=== PATIENT | female | born 1940 | race Caucasian/White ===

== ENCOUNTER 2023-09-23 13:34 | Emergency (ER) | payer MEDICARE, SELFPAY ==
[2023-09-23 13:35] VITALS: BP 152/114; PULSE 89; RESP 16; TEMP 36.4; O2SAT 97; BMI 28.3
--- NOTE | 2023-09-23 14:02 | EKG12_ITS ---
Test Reason : CP Blood Pressure : / mmHG Vent. Rate : 084 BPM Atrial Rate : 000 BPM P-R Int : 000 ms QRS Dur : 088 ms QT Int : 360 ms P-R-T Axes : 000 -55 -07 degrees QTc Int : 425 ms Atrial fibrillation LAFB Septal infarct , age undetermined Abnormal ECG Confirmed by Roly Herrera ([id number]), editorial writer CH[place] ADAMES ([id number]) on 09/26/2023 8:03:42 AM Referred By: KRISTOFER Confirmed By:Roly Herrera
--- NOTE | 2023-09-23 14:02 | RAD_ITS ---
STUDY: X-RAY CHEST REASON FOR EXAM: Female, 82 years old. chest pain TECHNIQUE: Single AP portable view of the chest. COMPARISON: None. FINDINGS: EKG leads overlie the chest Lungs are expanded. Right lung is clear, there is a 1.7 cm nodule in the left upper lobe. Without previous studies available for comparison, its chronicity is uncertain and further evaluation with CT scan is recommended. Normal size heart. Normal mediastinum and liyah. Normal visualized pulmonary arteries. There is atherosclerotic calcification of the aortic arch with tortuosity. There are diffuse degenerative changes of the visualized thoracic spine. Normal visualized ribs, clavicles, and shoulders. There is no demonstrated abnormality of the visualized soft tissue structures of the upper abdomen. RAD/Chest 1 View (Portable) IMPRESSION: Concerning 1.7 cm nodular density in the left upper lobe, consider further evaluation with chest CT since no prior studies are available for comparison No organized infiltrate or effusion Electronically Signed: Keyshawn Short MD at 14:22 EDT ,
[2023-09-23] MEDS: Aspirin 81 MG TAB.CHEW 324 MG PO (14:11)
--- NOTE | 2023-09-23 14:14 | EX.ED.DYSGE1 ---
HPI <JAMA Wade - Last Filed: 09/23/23 16:53> History of Present Illness Chief Complaint: Chest Pain Narrative Narrative: Patient is an 82-year-old female with history of atrial fibrillation, anxiety, factor V Leiden on Coumadin, who presents to the emergency department with complaints of an episode of lower chest pain that radiated to her back. Patient states that it was sharp and stabbing and woke her from sleep at approximately 4 AM. This lasted approximately 30 minutes. Per the patient, the patient's felt her pulse and it was rapid. Patient states that the pain did leave as well as the rapid heart rate. Today, the patient feels more tired. She is concerned that she may have had a heart attack. She denies any nausea vomiting diaphoresis. She is under a lot of stress, she did recently moved here 1 year ago and is taking care of of her grandchild that she currently has custody of. [facility] <JAMA Wade - Last Filed: 09/23/23 16:53> [facility] Home Medications ?Medication ?Instructions ?Recorded ?Last Taken ?Type amlodipine 5 mg tablet 7.5 mg PO DAILY 09/23/23 Unknown History losartan 100 1 tab PO DAILY 09/23/23 Unknown History mg-hydrochlorothiazide 25 mg tablet metoprolol tartrate 50 mg tablet 75 mg PO BID 09/23/23 Unknown History omeprazole 20 mg capsule,delayed 20 mg PO DAILY 09/23/23 Unknown History release oxybutynin chloride 10 mg 10 mg PO DAILY 09/23/23 Unknown History tablet,extended release 24 hr simvastatin 80 mg tablet 80 mg PO QHS 09/23/23 Unknown History warfarin 2 mg tablet 2 mg PO DAILY 09/23/23 Unknown History Allergy/AdvReac Type Severity Reaction Status Date / Time benazepril (From Lotensin) Allergy Mild DOESNT Verified 09/23/23 13:41 REMEMBER quinapril (From Accupril) Allergy Mild UNKNOWN Verified 09/23/23 13:41 Sulfa (Sulfonamide Allergy Mild Hives Verified 09/23/23 13:41 Antibiotics) verapamil (From Calan) Allergy Mild UNKNOWN Verified 09/23/23 13:41 Social History Smoking Status: Never smoker ROS <JAMA Wade - Last Filed: 09/23/23 16:53> ROS ED ROS Narrative Constitutional: Negative for fever, chills, weight loss, weakness Eyes: Negative for vision loss, vision change, double vision ENT: Negative for any sore throat, ear pain, congestion Cardiovascular: Negative for any palpitations. Positive chest pain, tightness Respiratory: Negative for any cough, sputum production, hemoptysis, dyspnea, dyspnea on exertion, orthopnea Gastrointestinal: Negative for any abdominal pain, nausea, vomiting, diarrhea, constipation, blood in stool, blood in vomit : Negative for any urinary frequency, dysuria, retention, blood in urine Muscle skeletal: Negative for any neck pain, back pain Neurological: Negative for any headache, syncope, dizziness Skin: Negative for any rashes, itching, abrasions, lacerations Psychiatric: Negative for any depression, anxiety, stress, suicidal ideation, homicidal ideation Hematologic: Negative for any excessive bruising, easy bleeding EXAM <JAMA Wade - Last Filed: 09/23/23 16:53> Physical Exam Narrative Exam Narrative: Vital signs reviewed. Patient is asymptomatic at this time. HEET: Head normocephalic atraumatic, TMs clear bilaterally. Posterior pharynx is clear, moist mucous membranes. Nares clear bilaterally. Neck: Supple with no lymphadenopathy or tenderness. No signs of meningismus. Cardiac: Irregular rate and rhythm, no murmurs gallops or rubs, equal peripheral pulses bilaterally. Respiratory: Lungs clear to auscultation bilaterally. No chest tenderness. Abdomen: Soft, nontender, nondistended. No abdominal bruit or pulsatile masses. No hepatosplenomegaly Extremities: No peripheral edema, no signs of gross trauma or deformity. Active full range of motion of all extremities. Neuro: Cranial nerves II through XII intact, no focal neurological deficits. Skin: Clean dry and intact with no rash, purpura, petechiae, vesicles or pustules. Backs/flank: No CVA tenderness, no midline spinal tenderness, no deformity. Psych: Normal mood and affect. No SI, HI or acute psychosis. Const Vital Signs: 09/23/23 13:35 09/23/23 14:18 09/23/23 14:30 Temperature 97.5 F L Temperature Source Oral Pulse Rate 89 88 Respiratory Rate 16 12 Blood Pressure 152/114 H 145/79 H Blood Pressure Mean 126 98 Pulse Ox 97 95 Oxygen Delivery Method Room Air Room Air 09/23/23 15:03 09/23/23 15:45 Temperature Temperature Source Pulse Rate 100 84 Respiratory Rate 16 16 Blood Pressure 125/80 H Blood Pressure Mean 94 Pulse Ox 94 Oxygen Delivery Method Positive well nourished and well developed General Appearance ED: well developed <Dr. Matheus Fabian MD - Last Filed: 09/23/23 15:30> Physical Exam Const Vital Signs: 09/23/23 13:35 09/23/23 14:18 09/23/23 14:30 Temperature 97.5 F L Temperature Source Oral Pulse Rate 89 88 Respiratory Rate 16 12 Blood Pressure 152/114 H 145/79 H Blood Pressure Mean 126 98 Pulse Ox 97 95 Oxygen Delivery Method Room Air Room Air 09/23/23 15:03 09/23/23 15:45 Temperature Temperature Source Pulse Rate 100 84 Respiratory Rate 16 16 Blood Pressure 125/80 H Blood Pressure Mean 94 Pulse Ox 94 Oxygen Delivery Method MDM <JAMA Wade - Last Filed: 09/23/23 16:53> [facility] Lab Data Labs: Laboratory Results - last 24 hr 09/23/23 09/23/23 13:50 16:10 WBC 6.4 RBC 4.34 Hgb 13.9 Hct 41.2 MCV 94.9 MCH 32.0 MCHC 33.7 RDW Std Deviation 51.8 H RDW Coeff of Kate 14.9 H Plt Count 199 MPV 11.6 Immature Gran % (Auto) 0.300 Neut % (Auto) 86.0 H Lymph % (Auto) 9.9 L [place] % (Auto) 2.8 Eos % (Auto) 0.5 Baso % (Auto) 0.5 Absolute Neuts (auto) 5.5 Absolute Lymphs (auto) 0.63 L Nucleated RBC % 0 PT 21.7 H INR 1.9 Sodium 131 L Potassium 3.5 Chloride 96 L Carbon Dioxide 23.0 Anion Gap 12 BUN 24 H Creatinine 1.22 H Estim Creat Clear Calc 33.35 Est GFR (MDRD) Af Amer 54 L Est GFR (MDRD) Non-Af 45 L BUN/Creatinine Ratio 19.7 Glucose 405 H Calcium 9.4 Total Bilirubin 0.60 AST 745 H ALT 579 H Alkaline Phosphatase 106 Troponin I High Sens 5 Cancelled B-Natriuretic Peptide 177.4 H Total Protein 7.9 Albumin 3.8 Globulin 4.1 Albumin/Globulin Ratio 0.9 Lipase 158 H TSH 1.63 Radiography Diagnostic Testing: Clinical Impression(s) from Imaging Studies Chest X-Ray 09/23/23 14:02 IMPRESSION: Concerning 1.7 cm nodular density in the left upper lobe, consider further evaluation with chest CT since no prior studies are available for comparison No organized infiltrate or effusion Electronically Signed: Keyshawn Short MD at 14:22 EDT , Gallbladder Ultrasound 09/23/23 15:10 IMPRESSION: Enlarged fatty infiltrated liver. Nonvisualization of the tail of the pancreas due to bowel gas No evidence for gallstones or acute cholecystitis. If concern for pancreatic disease CT recommended for further assessment. Electronically Signed: Eugene Mccormick MD at 16:36 EDT , EKG EKG shows atrial fibrillation, rate of 84 bpm: Attestation: I personally reviewed and interpreted this EKG as follows: Comments: Atrial fibrillation, rate of 84 bpm, QRS duration 88 ms, no acute ST elevation, no acute infarct noted. Treatment and Re-Evaluation :: Differential diagnosis includes however is not limited to: ACS, NC, GERD, cholecystitis, A-fib with RVR Patient appears to be in no obvious respiratory distress, patient's vital signs are stable, patient is nontoxic. Patient is pain-free, present to the emergency department with a sudden onset of lower chest upper abdomen pain that went through to her back. Patient will receive a full cardiac workup however secondary to the pain in the upper abdomen, CMP and lipase will also be ordered. Chest x-ray will be ordered. Patient at this time is pain-free. EKG shows atrial fibrillation which she has a history of. All radiologic examinations were read, reviewed by the emergency department attending. From these reads, a plan of care will be put in place. Patient CBC is normal, patient's PT shows slightly elevated 21.7, INR is 1.9-patient is on Coumadin. Patient is subtherapeutic. Patient's chemistries show sodium 131, creatinine 1.22, GFR 45. Patient's blood glucose was 405 with an AST of 745, ALT of 579. BNP slightly elevated 177 with a lipase of 158. TSH was negative. Patient's troponin was negative. At this time, patient be given a formal right upper quadrant ultrasound. On reevaluation, the patient was asymptomatic. Patient was laughing in the room. Patient's ultrasound of the gallbladder showed enlarged fatty infiltrated liver. No visualization of the tail of the pancreas due to bowel gas. No evidence of gallstones or acute cholecystitis. At this time, I do believe the patient can be stable for discharge and to follow-up outpatient. She is happy with this plan of care. There is no evidence of any ACS or NC. There is no surgical emergency. She is instructed to follow-up with her PCP. As well as I will refer her to GI as well as surgery. All questions are answered, patient was given return precautions. <Dr. Matheus Fabian MD - Last Filed: 09/23/23 15:30> [facility] MDM Narrative Medical decision making narrative: I have personally performed a face to face assessment of the patient and have reviewed the BLANE Note. I performed a substantive portion of the visit including all aspects of the following. My lovell findings include: History is awoke about 10 hours ago with bilateral nonpleuritic lower chest/upper abdomen pressure and rapid heart rate, worse on the right side, felt like I was in a vice, lasted maybe 30 minutes before spontaneously resolved and no symptoms since then. Patient states multiple times that she is under a lot of stress, she is in her 80s taking care of some 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 temporarily, and one of them is ill and she is very concerned about her having low-grade fevers and was up all night because of that. History of A-fib, on warfarin. No recent illness no bleeding, does not know if she is always in A-fib or is rarely in A-fib. Usually takes her first dose of metoprolol at noon but has not taken it today yet because she usually takes it with lunch and she was not very hungry. Currently 1430. Exam is heart is irregularly irregular borderline tachycardia, systolic 2/6 crescendo-decrescendo murmur LLSB, patient keenly alert well-appearing conversive in full sentences clear lungs, benign abdomen nontender no pulsatile mass, neurovasc intact distally no. No edema. Medical Decison Making EKG shows rate controlled A-fib with no acute injury pattern. Ordering her noon dose of metoprolol to be given now, 75 mg orally. Chest x-ray 1 view on my interpretation negative for acute infiltrate, widened mediastinum, pneumothorax although incidentally there is a left upper lobe round nodule that can be evaluated not emergently. enzymes and other labs which I have reviewed. Her liver enzymes and lipase are elevated some, without hyperbilirubinemia and her troponin is negative. I did a bedside ultrasound, she does not have a sonographic Rodríguez's and I see no gallbladder stones. Sending for official ultrasound to evaluate biliary plumbing and gallbladder more closely and we will continue to monitor patient. She is asymptomatic. If no choledocholithiasis or biliary dilatation, then outpatient follow-up and a clear liquid diet for the next 48 hours would be reasonable, returning if worse. Other additions or changes: [None] Lab Data Attestation: I reviewed the patient's lab results. Labs: Laboratory Results - last 24 hr 09/23/23 09/23/23 13:50 16:10 WBC 6.4 RBC 4.34 Hgb 13.9 Hct 41.2 MCV 94.9 MCH 32.0 MCHC 33.7 RDW Std Deviation 51.8 H RDW Coeff of Kate 14.9 H Plt Count 199 MPV 11.6 Immature Gran % (Auto) 0.300 Neut % (Auto) 86.0 H Lymph % (Auto) 9.9 L [place] % (Auto) 2.8 Eos % (Auto) 0.5 Baso % (Auto) 0.5 Absolute Neuts (auto) 5.5 Absolute Lymphs (auto) 0.63 L Nucleated RBC % 0 PT 21.7 H INR 1.9 Sodium 131 L Potassium 3.5 Chloride 96 L Carbon Dioxide 23.0 Anion Gap 12 BUN 24 H Creatinine 1.22 H Estim Creat Clear Calc 33.35 Est GFR (MDRD) Af Amer 54 L Est GFR (MDRD) Non-Af 45 L BUN/Creatinine Ratio 19.7 Glucose 405 H Calcium 9.4 Total Bilirubin 0.60 AST 745 H ALT 579 H Alkaline Phosphatase 106 Troponin I High Sens 5 Cancelled B-Natriuretic Peptide 177.4 H Total Protein 7.9 Albumin 3.8 Globulin 4.1 Albumin/Globulin Ratio 0.9 Lipase 158 H TSH 1.63 Radiography Diagnostic Testing: Clinical Impression(s) from Imaging Studies Chest X-Ray 09/23/23 14:02 IMPRESSION: Concerning 1.7 cm nodular density in the left upper lobe, consider further evaluation with chest CT since no prior studies are available for comparison No organized infiltrate or effusion Electronically Signed: Keyshawn Short MD at 14:22 EDT , Gallbladder Ultrasound 09/23/23 15:10 IMPRESSION: Enlarged fatty infiltrated liver. Nonvisualization of the tail of the pancreas due to bowel gas No evidence for gallstones or acute cholecystitis. If concern for pancreatic disease CT recommended for further assessment. Electronically Signed: Eugene Mccormick MD at 16:36 EDT , EKG EKG shows atrial fibrillation, rate of 84 bpm: Attestation: I personally reviewed and interpreted this EKG as follows: (intrepreted by ED physician also) Discharge Plan Triage Chief Complaint: Chest Pain ED Midlevel Provider: Tito Dillon ED Provider: Matheus Fabian Dx/Rx/DC Orders Clinical Impression: Abdominal pain, epigastric, Transaminitis, Atrial fibrillation Instructions: AFib, ED Pain, Acute, Uncertain Cause Prescriptions: No Action amlodipine 5 mg tablet 7.5 mg PO DAILY losartan-hydrochlorothiazide 100-25 mg tablet 1 tab PO DAILY metoprolol tartrate 50 mg tablet 75 mg PO BID omeprazole 20 mg capsule,delayed release(DR/EC) 20 mg PO DAILY oxybutynin chloride 10 mg tablet extended release 24hr 10 mg PO DAILY simvastatin 80 mg tablet 80 mg PO QHS warfarin 2 mg tablet 2 mg PO DAILY Primary Care Provider: Kendra Lucio Referrals: Luis Garcia MD [Med Staff - Active Staff] - Kendra Lucio MD [Primary Care Provider] - Robb Giron DO [Med Staff - Active Staff] - Activity Restrictions/Additional Instructions: Clear liquid diet for 2 days, follow-up outpatient. Return for any worsening symptoms. Print Language: Vietnamese Disposition Disposition: Home, Self Care
[2023-09-23 14:15] LABS: Absolute Lymphocyte Count 0.63 X10^3/uL (0.83-4.51); Absolute Neutrophil Count 5.5 X10^3/uL (2.0-7.7); Basophil# 0.03 X10^3/uL; Basophil% 0.5 % (0-1); Eosinophil# 0.03 X10^3/uL; Eosinophils% 0.5 % (0-5); Hematocrit 41.2 % (37-47); Hemoglobin 13.9 g/dL (12.0-15.0); Lymphocyte # 0.63 X10^3/ul (0.83-4.51); Lymphocyte % 9.9 % (19-41); Mean Corp Hgb Conc 33.7 g/dL (32-36); Mean Corpuscular Volume 94.9 fL (81-99); Mean Platelet Vol. 11.6 fl (6.2-12.0); Monocyte# 0.18 X10^3/uL; Monocyte% 2.8 % (0-10); NRBC Flagged by Analyzer 0 % (0-5); Neutrophil # 5.46 X10^3/uL (2.7-7.7); Platelet Count 199 K/mm3 (150-450); RBC Distribution Width CV 14.9 % (11.6-14.6); RBC Distribution Width SD 51.8 fl (35.1-43.9); Red Blood Count 4.34 M/mm3 (4.2-5.4); White Blood Count 6.4 K/mm3 (4.4-11.0)
[2023-09-23 14:30] VITALS: BP 145/79; PULSE 88; RESP 12; O2SAT 95
[2023-09-23 14:34] LABS: International Normalized Ratio 1.9; Prothrombin Time (Protime)PT. 21.7 SECONDS (11.7-14.9)
[2023-09-23 14:40] LABS: ALB/GLOB Ratio 0.9 RATIO (0.9-2.4); AST(SGOT) 745 U/L (15-37); Alanine Aminotransfer ALT/SGPT 579 U/L (13-56); Albumin, Serum 3.8 g/dL (3.2-5.0); Alkaline Phosphatase 106 U/L (45-117); Anion Gap 12 (5-15); BUN 24 mg/dL (7-18); BUN/Creat Ratio 19.7 RATIO (10-20); Calcium,Total 9.4 mg/dL (8.5-10.1); Chloride 96 mmol/L (98-107); Creatinine, Serum 1.22 mg/dL (0.55-1.02); EST Glomerular Filtration Rate 45 mL/min (>60); Est Glom Filt Rate - Afr Amer 54 mL/min (>60); Estimated Creatinine Clearance 33.35 ml/min; Globulin 4.1 g/dL (2.2-4.2); Glucose 405 mg/dL (74-106); Lipase 158 U/L (13-75); Potassium 3.5 mmol/L (3.5-5.1); Protein, Total 7.9 g/dL (6.4-8.2); Sodium Level 131 mmol/L (136-145); Thyroid Stim Hormone (TSH) 1.63 uIU/mL (0.358-3.74); Troponin-I HS (w/2H Reflex) 5 pg/mL (3.0-54.0)
[2023-09-23 14:44] LABS: BNP,B-Type NATRIURETIC PEPTIDE 177.4 pg/mL (0-100)
[2023-09-23 15:03] VITALS: PULSE 100; RESP 16
[2023-09-23] MEDS: Metoprolol Tartrate 25 MG Tablet 75 MG PO (15:03)
--- NOTE | 2023-09-23 15:10 | US_ITS ---
STUDY: ABDOMINAL ULTRASOUND - RIGHT UPPER QUADRANT REASON FOR VISIT: Female, 82 years old PAIN TECHNIQUE: Ultrasound evaluation of the right upper quadrant was performed with real-time and static rojas-scale imaging. TECHNICAL QUALITY: Adequate. COMPARISON: None. FINDINGS: Liver: The liver measures 18.7 cm. There is diffusely increased echogenicity of the liver. The bile ducts are within normal limits. There is hepatic color flow. The direction of portal flow is hepatopetal. There is no demonstrated mass lesion. Gallbladder: Normal distended gallbladder. The gallbladder wall measures 2.1 mm. There is a negative sonographic Rodríguez''s sign. There is no pericholecystic fluid. There are no gallstones. Common Bile Duct (C.B.D.): The common bile duct measures 2.8 mm. Pancreas: Not visualized due to bowel gas producing artifact. Right Kidney: Normal size of the right kidney. The right kidney measures 10.1 x 5.1 x 5 cm. Normal renal cortex. The right cortex measures 1 cm. There is no demonstrated renal mass or cyst. There is no right hydronephrosis. US/Gallbladder IMPRESSION: Enlarged fatty infiltrated liver. Nonvisualization of the tail of the pancreas due to bowel gas No evidence for gallstones or acute cholecystitis. If concern for pancreatic disease CT recommended for further assessment. Electronically Signed: Eugene Mccormick MD at 16:36 EDT ,
[2023-09-23 15:45] VITALS: BP 125/80; PULSE 84; RESP 16; O2SAT 94
[2023-09-23 16:10] LABS: Reflex Troponin-HS? (from REC) Y
[2023-09-23 17:00] VITALS: BP 120/89; PULSE 89; RESP 16; TEMP 36.4; O2SAT 99
== END 2023-09-23 17:01 | disposition home or self-care (01) ==
PROVIDERS: Nurse Practitioner; Emergency Provider Emergency Medicine; PCP Internal Medicine; Visit Provider Emergency Medicine
DX: R10.13 Epigastric pain (principal); I48.91 Unspecified atrial fibrillation; R74.01 Elevation of levels of liver transaminase levels; R74.8 Abnormal levels of other serum enzymes; F41.9 Anxiety disorder, unspecified; Z79.01 Long term (current) use of anticoagulants; Z79.899 Other long term (current) drug therapy
CPT/HCPCS: 71045; 76705; 80053; 83690; 83880; 84443; 84484; 85025; 85610; 93005; 99283; A4216

== ENCOUNTER 2023-12-31 12:05 | Inpatient (IN) | payer MEDICARE, SELFPAY ==
[2023-12-31] VITALS (15 sets, daily range): BP systolic 95–154; BP diastolic 60–129; PULSE 60–78; RESP 4–25; TEMP 36.2–36.8; O2SAT 88–99; BMI 27.3; BMI 27.1
--- NOTE | 2023-12-31 12:51 | RAD_ITS ---
STUDY: X-RAY CHEST REASON FOR EXAM: Female, 83 years old. dyspnea TECHNIQUE: Single AP portable view of the chest. COMPARISON: 09/23/2023. FINDINGS: Moderate lung volumes. Diffuse pulmonary opacities throughout the right lung primarily in the perihilar region. Additional pulmonary opacities in the left lung base. Findings are consistent with congestion/edema or multifocal pneumonia. Probable bilateral small pleural effusions worse on the left. There is mild cardiac enlargement. Normal mediastinum and liyah. Normal visualized pulmonary arteries. Normal visualized aortic arch and descending thoracic aorta. Normal visualized thoracic spine. Normal visualized ribs, clavicles, and shoulders. There is no demonstrated abnormality of the visualized soft tissue structures of the upper abdomen. RAD/Chest 1 View (Portable) IMPRESSION: Bilateral pulmonary opacities as above. Questioned congestion/edema or multifocal pneumonia with small effusions. Electronically Signed: Bret Burgos MD at 13:47 EDT ,
--- NOTE | 2023-12-31 12:53 | EKG12_ITS ---
Test Reason : SOB Blood Pressure : / mmHG Vent. Rate : 060 BPM Atrial Rate : 000 BPM P-R Int : 000 ms QRS Dur : 084 ms QT Int : 468 ms P-R-T Axes : 000 -20 022 degrees QTc Int : 468 ms Junctional rhythm Septal infarct (cited on or before 23-SEP-2023) Abnormal ECG Confirmed by STEPHANIE ERICKSON, REI ([id number]), film and video editor [place] ADAMES ([id number]) on 01/03/2024 8:10:26 AM Referred By: Confirmed By:REI BROWN MD
--- NOTE | 2023-12-31 12:54 | EDS_ITS ---
HPI History of Present Illness Chief Complaint: Shortness of Breath Informant: patient Narrative Narrative: 83-year-old female presenting to the emergency room with a chief complaint of dyspnea. Patient was treated at the beginning of the month for pneumonia with doxycycline and Augmentin. She states over the past several days she has had increasing shortness of breath with exertion lower extremity swelling. About a 10 pound weight gain over what she remembers her last body weight being. Currently weighing 158.9. Patient notes that she has to sleep on her left side in order to breathe. She occasionally hears wheezing. No reported fevers. She denies a history of CHF but does note her brother and father had CHF/heart problems. Patient is on Coumadin for prior stroke. [facility]SH [facility] Home Medications ?Medication ?Instructions ?Recorded ?Last Taken ?Type amlodipine 5 mg tablet 7.5 mg PO DAILY 09/23/23 Unknown History losartan 100 1 tab PO DAILY 09/23/23 Unknown History mg-hydrochlorothiazide 25 mg tablet metoprolol tartrate 50 mg tablet 75 mg PO BID 09/23/23 Unknown History omeprazole 20 mg capsule,delayed 20 mg PO DAILY 09/23/23 Unknown History release oxybutynin chloride 10 mg 10 mg PO DAILY 09/23/23 Unknown History tablet,extended release 24 hr simvastatin 80 mg tablet 80 mg PO QHS 09/23/23 Unknown History warfarin 2 mg tablet 2 mg PO DAILY 09/23/23 Unknown History Allergy/AdvReac Type Severity Reaction Status Date / Time benazepril (From Lotensin) Allergy Mild DOESNT Verified 12/31/23 12:26 REMEMBER quinapril (From Accupril) Allergy Mild UNKNOWN Verified 12/31/23 12:26 Sulfa (Sulfonamide Allergy Mild Hives Verified 12/31/23 12:26 Antibiotics) verapamil (From Calan) Allergy Mild UNKNOWN Verified 12/31/23 12:26 Surgical History (Updated 12/31/23 @ 12:[address] Adam Moore DO) S/P carotid endarterectomy Social History Smoking Status: Never smoker ROS ROS ED ROS Narrative Weight gain Constitutional Constitutional ED: Denies chills, fever(s) or weight loss Eyes Eyes: Denies change in vision or diplopia ENT ENT ED: Denies ear pain, rhinorrhea or sore throat Cardiovascular Cardiovascular: Denies chest pain, orthopnea, palpitations or racing heartbeat Respiratory/Chest Respiratory/Chest: Reports cough, dyspnea, dyspnea on exertion and other Details: Occasional wheeze ; Denies orthopnea Gastrointestinal Gastrointestinal: Denies abdominal pain, diarrhea, nausea or vomiting Genitourinary Genitourinary ED: Denies dysuria, hematuria or urinary frequency Musculoskeletal Musculoskeletal: Denies arthralgias or myalgias Integumentary Denies abscess or rash Neurologic Neurologic: Denies headache(s) or weakness Psychiatric Psychiatric: Denies anxiety, depression, suicidal ideation or suicidal thoughts Endocrine Endocrinology: Denies polydipsia, polyphagia or polyuria Allergic/Immunologic Allergic/Immunologic ED: Denies mouth swelling, tongue swelling or urticaria EXAM Physical Exam Const Vital Signs: 12/31/23 12:06 12/31/23 13:48 12/31/23 14:06 Temperature 97.4 F L Temperature Source Temporal Pulse Rate 65 78 Respiratory Rate 24 H 16 Respiratory Effort Short of Breath Blood Pressure 121/70 H 124/76 H Blood Pressure Mean 87 92 Pulse Ox 90 94 Oxygen Delivery Method Room Air Room Air Nasal Cannula Oxygen Flow Rate (L/min) 2 Fraction of Inspired Oxygen (FIO2) 12/31/23 15:32 12/31/23 16:00 Temperature Temperature Source Pulse Rate 70 68 Respiratory Rate 25 H 15 Respiratory Effort Blood Pressure 150/129 H Blood Pressure Mean 136 Pulse Ox 92 95 Oxygen Delivery Method Bi-pap Oxygen Flow Rate (L/min) Fraction of Inspired Oxygen (FIO2) 50 Positive well nourished and well developed General Appearance ED: well developed and NAD HEENT Reports normocephalic, head/scalp atraumatic and moist mucous membranes Eyes PERRL and EOMs intact bilaterally Neck no lymphadenopathy, supple and no JVD Resp normal respiratory effort Auscultation: diminished lung sounds Cardio regular rate, regular rhythm and no murmurs GI normal to inspection, nondistended, normoactive bowel sounds and non-tender Palpation: soft Back/Spine no CVA tenderness and normal ROM Extremity normal to inspection Extremity Narrative: There is a water blister on the foot General Extremety ED: Yes edema General Extremity: edema bilateral lower extremity Details: moderate Neuro oriented x3 and CN's II-XII intact bilaterally Sensorium / Orientation: alert Motor Exam: strength 5/5 throughout Psych mental status grossly normal Mood & Affect: Negative for depressed or tearful Skin no rashes or lesions noted and no wounds MDM MDM MDM Narrative Medical decision making narrative: Differential diagnosis includes but not limited to congestive heart failure renal failure electrolyte abnormalities ACS pneumonia pleural effusion p neumothorax White count 5.3 with a hemoglobin 11.1 and a platelet count of 243. INR is therapeutic 2.1 lactic acid normal 1.1. Troponin is 11 BNP is 379 urinalysis with no overt infection. Potassium slightly low 3.3 creatinine 0.95 with a BUN of 23. Patient's EKG is sinus rhythm at a rate of 60. My independent interpretation of the chest x-ray is left lower lobe effusion possible right upper lobe mass versus infiltrate versus vascular congestion. CTA of the chest was obtained which does not demonstrate any pulmonary embolism or dissection. No obvious mass was seen. There are bilateral pleural effusions seen. Patient came back from CT was having a significant time oxygenating and catching her breath. Eventually was requiring supplemental oxygen and then BiPAP. She received 60 mg of Lasix. Her plan is admission into the hospital. We will also administer some supplemental potassium. History & Record Review Discussion w/independent historian: Patient and Significant other Lab Data Attestation: I reviewed the patient's lab results. Labs: Laboratory Results - last 24 hr 12/31/23 12/31/23 12/31/23 12:27 13:20 14:22 WBC 5.3 RBC 3.54 L Hgb 11.1 L Hct 34.8 L MCV 98.3 MCH 31.4 MCHC 31.9 L RDW Std Deviation 58.6 H RDW Coeff of Kate 16.1 H Plt Count 243 MPV 11.1 Immature Gran % (Auto) 0.400 Neut % (Auto) 59.5 Lymph % (Auto) 26.0 [place] % (Auto) 10.1 H Eos % (Auto) 3.4 Baso % (Auto) 0.6 Absolute Neuts (auto) 3.2 Absolute Lymphs (auto) 1.39 Nucleated RBC % 0 PT 23.1 H INR 2.1 APTT 50.5 H Sodium 139 Potassium 3.3 L Chloride 105 Carbon Dioxide 25.0 Anion Gap 9 BUN 23 H Creatinine 0.95 Estim Creat Clear Calc 41.36 Est GFR (MDRD) Af Amer 72 Est GFR (MDRD) Non-Af 60 BUN/Creatinine Ratio 24.2 H Glucose 132 H Lactic Acid 1.1 Calcium 9.6 Total Bilirubin 0.80 Direct Bilirubin 0.22 AST 17 ALT 22 Alkaline Phosphatase 81 Troponin I High Sens 11 B-Natriuretic Peptide 379.2 H Total Protein 7.5 Albumin 3.4 Globulin 4.1 Urine Color Yellow Urine Clarity Clear Urine pH 7.0 Ur Specific [place] 1.005 Urine Protein Negative Urine Glucose (UA) Normal Urine Ketones Negative Urine Occult Blood Negative Urine Nitrite Negative Urine Bilirubin Negative Urine Urobilinogen Normal Ur Leukocyte Esterase 500 H Urine RBC 0 SEEN Urine WBC 0-5 SEEN Ur Squamous Epith Cells 0-5 SEEN Urine Bacteria 0 SEEN Urine Mucus 0 SEEN Radiography Diagnostic Testing: Clinical Impression(s) from Imaging Studies Chest X-Ray 12/31/23 12:51 IMPRESSION: Bilateral pulmonary opacities as above. Questioned congestion/edema or multifocal pneumonia with small effusions. Electronically Signed: Bret Burgos MD at 13:47 EDT , Chest CTA 12/31/23 13:48 IMPRESSION: CTA chest examination, without a demonstrated pulmonary embolism or arterial dissection. Bilateral pneumonia or edema and pleural effusions. Electronically Signed: Matheus Mccurdy MD at 14:56 EDT , EKG Initial EKG: Attestation: I personally reviewed and interpreted this EKG as follows: Comments: Sinus rhythm ventricular rate of 60 bpm Discharge Plan Dx/Rx/DC Orders Clinical Impression: CHF (congestive heart failure), Acute hypoxemic respiratory failure, Hypokalemia, Anemia Disposition Disposition: Acute Care Hospital [facility]
[2023-12-31 13:24] LABS: Bacteria 0 SEEN /hpf (None Seen); Mucous, Urine 0 SEEN /hpf (<or=2+); Red Blood Cells-Urine 0 SEEN /hpf (0-5)
[2023-12-31 13:26] LABS: Absolute Lymphocyte Count 1.39 X10^3/uL (0.83-4.51); Absolute Neutrophil Count 3.2 X10^3/uL (2.0-7.7); Basophil# 0.03 X10^3/uL; Basophil% 0.6 % (0-1); Eosinophil# 0.18 X10^3/uL; Eosinophils% 3.4 % (0-5); Hematocrit 34.8 % (37-47); Hemoglobin 11.1 g/dL (12.0-15.0); Lymphocyte # 1.39 X10^3/ul (0.83-4.51); Mean Corp Hgb Conc 31.9 g/dL (32-36); Mean Corpuscular Hgb 31.4 pg (27.0-32.0); Mean Corpuscular Volume 98.3 fL (81-99); Mean Platelet Vol. 11.1 fl (6.2-12.0); Monocyte# 0.54 X10^3/uL; Monocyte% 10.1 % (0-10); NRBC Flagged by Analyzer 0 % (0-5); Neutrophil # 3.18 X10^3/uL (2.7-7.7); Neutrophil % 59.5 % (47-70); Platelet Count 243 K/mm3 (150-450); RBC Distribution Width CV 16.1 % (11.6-14.6); RBC Distribution Width SD 58.6 fl (35.1-43.9); Red Blood Count 3.54 M/mm3 (4.2-5.4); White Blood Count 5.3 K/mm3 (4.4-11.0)
[2023-12-31 13:30] LABS: Color, Urine Yellow (Yellow); Glucose, Dipstick Normal (Normal); Ketone-Dipstick Negative (Negative); Leukocyte Esterase-Dipstick 500 /ul (Negative); Nitrite-Dipstick Negative (Negative); Occult Blood-Urine Negative /ul (Negative); Protein-Dipstick Negative (Negative); Specific Gravity, Urine 1.005 (1.002-1.030); Urine Bilirubin Dipstick Negative (Negative); Urine Clarity Clear (Clear); Urine Urobilinogen Normal (Normal)
[2023-12-31 13:32] LABS: International Normalized Ratio 2.1; Prothrombin Time (Protime)PT. 23.1 SECONDS (11.7-14.9)
[2023-12-31 13:33] LABS: Partial Thromboplast Time 50.5 Seconds (24.1-36.2)
[2023-12-31 13:38] LABS: Squamous Epithelial Cells - UA 0-5 SEEN /hpf (5-10); White Blood Cells 0-5 SEEN /hpf (0-5)
[2023-12-31 13:42] LABS: AST(SGOT) 17 U/L (15-37); Alanine Aminotransfer ALT/SGPT 22 U/L (13-56); Albumin, Serum 3.4 g/dL (3.2-5.0); Alkaline Phosphatase 81 U/L (45-117); Anion Gap 9 (5-15); BUN 23 mg/dL (7-18); BUN/Creat Ratio 24.2 RATIO (10-20); Bilirubin, Direct 0.22 mg/dL (0.00-0.30); Calcium,Total 9.6 mg/dL (8.5-10.1); Chloride 105 mmol/L (98-107); Creatinine, Serum 0.95 mg/dL (0.55-1.02); EST Glomerular Filtration Rate 60 mL/min (>60); Est Glom Filt Rate - Afr Amer 72 mL/min (>60); Estimated Creatinine Clearance 41.36 ml/min; Globulin 4.1 g/dL (2.2-4.2); Glucose 132 mg/dL (74-106); Potassium 3.3 mmol/L (3.5-5.1); Protein, Total 7.5 g/dL (6.4-8.2); Sodium Level 139 mmol/L (136-145); Troponin-I HS 11 pg/mL (3.0-54.0)
[2023-12-31 13:47] LABS: BNP,B-Type NATRIURETIC PEPTIDE 379.2 pg/mL (0-100)
--- NOTE | 2023-12-31 13:48 | CT_ITS ---
STUDY: CTA CHEST REASON FOR EXAM: Female, 83 years old. Abnormal chest xray pulmonary embolism RADIATION DOSAGE (If Supplied By Facility): CTDIvol = ( 11.30 ) mGy, DLP = ( 413.08 ) mGycm TECHNIQUE: The examination was performed with the intravenous administration of IV 100mL Isovue-370. Post-processing of the angiographic images was performed, with multiplanar reformation and 3D reconstruction. Individualized dose optimization techniques were used for this CT. COMPARISON: Chest x-ray. FINDINGS: Normal enhancement of the main pulmonary artery and right and left pulmonary arteries. Normal enhancement of the bilateral peripheral pulmonary arteries. There is no demonstrated pulmonary embolism. There is atherosclerotic calcification of the aortic arch with tortuosity. There is no demonstrated aortic dissection. There are calcifications of the coronary arteries. Normal mediastinum. Normal hilar regions. Normal visualized trachea and bronchi. The lungs are well expanded. There are right greater than left mid and lower lung groundglass and airspace opacities. There is left upper lobe granuloma. There are moderate bilateral pleural effusions. Normal chest wall structures. There are degenerative changes of thoracic spine. Normal visualized upper abdomen. CT/CTA Chest W/WO Contrast IMPRESSION: CTA chest examination, without a demonstrated pulmonary embolism or arterial dissection. Bilateral pneumonia or edema and pleural effusions. Electronically Signed: Matheus Mccurdy MD at 14:56 EDT ,
[2023-12-31 15:12] LABS: Lactic Acid 1.1 mmol/L (0.4-1.9)
[2023-12-31] MEDS: Furosemide 100 MG/10 ML Vial 60 MG IV (15:12)
[2023-12-31] MEDS: Potassium Chloride 10mEq/100mL 10 MEQ/100 ML IV.SOLN. 100 MEQ IV BOLUS (16:00)
--- NOTE | 2023-12-31 16:11 | HP.PCM.HOS_ITS ---
HPI - General General Date of Admission: 12/31/23 Date of Service: 12/31/23 Chief Complaint: Acute hypoxic respiratory failure HPI Narrative JAROD PRITCHARD, is a 83-year-old female history of hypertension, GERD, CVA, carotid endarterectomy presented to [facility] ED 12/31/2023 for increasing shortness of breath. Treated at the beginning of the month for pneumonia with doxycycline and Augmentin however over the past several days she has had increasing shortness of breath with lower extremity swelling and 10 pound weight gain. In the ED hemoglobin 11.1, potassium 3.3 with a BNP of 379 and chest x-ray with bilateral pulmonary opacities possible congestion/edema or multifocal pneumonia with small effusions. CTA w/ no PE but bilateral pneumonia or edema with pleural effusions. Patient with increased work of breathing and O2 sat of 90% on room air with no activity and then desaturated to 80% on 6 L, ultimately required being placed on BiPAP. Given potassium and IV Lasix and hospitalist contacted for admission for suspected heart failure exacerbation and fluid overload. Patient evaluated at bedside with and 2 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 present. History as above. Has had the increased shortness of breath and leg swelling over the past several days but sounds that the leg swelling may have been at least a week. Has had a little cough without much production, had a little bit of blood-tinged sputum in the ED but no foul-smelling sputum or discharge, no chest pain, no fevers. 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 Denies any other complaints at present. [facility] Home Medications ?Medication ?Instructions ?Recorded ?Last Taken ?Type amlodipine 5 mg tablet 7.5 mg PO DAILY 09/23/23 Unknown History losartan 100 1 tab PO DAILY 09/23/23 Unknown History mg-hydrochlorothiazide 25 mg tablet metoprolol tartrate 50 mg tablet 75 mg PO BID 09/23/23 Unknown History omeprazole 20 mg capsule,delayed 20 mg PO DAILY 09/23/23 Unknown History release oxybutynin chloride 10 mg 10 mg PO DAILY 09/23/23 Unknown History tablet,extended release 24 hr simvastatin 80 mg tablet 80 mg PO QHS 09/23/23 Unknown History warfarin 2 mg tablet 2 mg PO DAILY 09/23/23 Unknown History Allergy/AdvReac Type Severity Reaction Status Date / Time benazepril (From Lotensin) Allergy Mild DOESNT Verified 12/31/23 12:26 REMEMBER quinapril (From Accupril) Allergy Mild UNKNOWN Verified 12/31/23 12:26 Sulfa (Sulfonamide Allergy Mild Hives Verified 12/31/23 12:26 Antibiotics) verapamil (From Calan) Allergy Mild UNKNOWN Verified 12/31/23 12:26 Surgical History (Updated 12/31/23 @ 12:[address] Adam Moore DO) S/P carotid endarterectomy Social History Smoking Status: Never smoker ROS ROS Narrative General: Denies fever/chills HENT: Denies headache, denies stuffy nose, denies sore throat EYES: Denies changes in vision Resp: Increasing shortness of breath over several days, slight cough with some blood-tinged sputum in ED however no bowel or purulent secretions Cardiac: Denies chest pain GI: Denies abdominal pain, denies changes in bowel, denies nausea/vomiting : Denies changes in urination Extremity: Increased swelling lower extremities MSK: Denies weakness Neuro: Has some painful feet per patient Heme: Denies any bleeding or bruising Skin: Some redness in toes and water-filled blister at base of toes on right foot Psychiatric: No complaints voiced Vital Signs Vital Signs Vital Signs: 12/31/23 12:06 12/31/23 13:48 12/31/23 14:06 Temperature 97.4 F L Temperature Source Temporal Pulse Rate 65 78 Respiratory Rate 24 H 16 Respiratory Effort Short of Breath Blood Pressure 121/70 H 124/76 H Blood Pressure Mean 87 92 Pulse Ox 90 94 Oxygen Delivery Method Room Air Room Air Nasal Cannula Oxygen Flow Rate (L/min) 2 Fraction of Inspired Oxygen (FIO2) 12/31/23 15:32 12/31/23 16:00 Temperature Temperature Source Pulse Rate 70 68 Respiratory Rate 25 H 15 Respiratory Effort Blood Pressure 150/129 H Blood Pressure Mean 136 Pulse Ox 92 95 Oxygen Delivery Method Bi-pap Oxygen Flow Rate (L/min) Fraction of Inspired Oxygen (FIO2) 50 Weight Weight: 70 kg Body Mass Index (BMI) 27.3 Physical Exam Narrative General: Alert, oriented, appears anxious HEENT: Atraumatic, normocephalic Eyes: Anicteric, normal conjunctiva, extraocular movements grossly intact Neck: Supple Respiratory: Increased respiratory effort, diminished at bases with crackles appreciated as well Cardiovascular: Regular rate and rhythm GI: Soft, nontender, nondistended Extremities: 1+ lower extremity edema right greater than left Musculoskeletal: Moving all extremities Neuro: No overt focal neurological deficits Skin: Cool feet, some reddening of toes on the right side which is not necessarily new, fluid-filled blister at base of toes on dorsal surface of right side present for 1 week Psych: Cooperative but appears anxious Results Lab / Micro Data 12/31/23 12:27 12/31/23 12:27 Labs: Laboratory Results - last 24 hr 12/31/23 12:27: WBC 5.3, RBC 3.54 L, Hgb 11.1 L, Hct 34.8 L, MCV 98.3, MCH 31.4, MCHC 31.9 L, RDW Std Deviation 58.6 H, RDW Coeff of Kate 16.1 H, Plt Count 243, MPV 11.1, Immature Gran % (Auto) 0.400, Neut % (Auto) 59.5, Lymph % (Auto) 26.0, Terry % (Auto) 10.1 H, Eos % (Auto) 3.4, Baso % (Auto) 0.6, Absolute Neuts (auto) 3.2, Absolute Lymphs (auto) 1.39, Nucleated RBC % 0, PT 23.1 H, INR 2.1, APTT 50.5 H, Sodium 139, Potassium 3.3 L, Chloride 105, Carbon Dioxide 25.0, Anion Gap 9, BUN 23 H, Creatinine 0.95, Estim Creat Clear Calc 41.36, Est GFR (MDRD) Af Amer 72, Est GFR (MDRD) Non-Af 60, BUN/Creatinine Ratio 24.2 H, Glucose 132 H , Calcium 9.6, Total Bilirubin 0.80, Direct Bilirubin 0.22, AST 17, ALT 22, Alkaline Phosphatase 81, Troponin I High Sens 11, B-Natriuretic Peptide 379.2 H, Total Protein 7.5, Albumin 3.4, Globulin 4.1 12/31/23 13:20: Urine Color Yellow, Urine Clarity Clear, Urine pH 7.0, Ur Specific [place] 1.005, Urine Protein Negative, Urine Glucose (UA) Normal, Urine Ketones Negative, Urine Occult Blood Negative, Urine Nitrite Negative, Urine Bilirubin Negative, Urine Urobilinogen Normal, Ur Leukocyte Esterase 500 H, Urine RBC 0 SEEN, Urine WBC 0-5 SEEN, Ur Squamous Epith Cells 0-5 SEEN, Urine Bacteria 0 SEEN, Urine Mucus 0 SEEN 12/31/23 14:22: Lactic Acid 1.1 Imaging Radiology Impression Chest X-Ray 12/31/23 12:51 IMPRESSION: Bilateral pulmonary opacities as above. Questioned congestion/edema or multifocal pneumonia with small effusions. Electronically Signed: Bret Burgos MD at 13:47 EDT , Chest CTA 12/31/23 13:48 IMPRESSION: CTA chest examination, without a demonstrated pulmonary embolism or arterial dissection. Bilateral pneumonia or edema and pleural effusions. Electronically Signed: Matheus Mccurdy MD at 14:56 EDT , Assessment & Plan Assessment/Plan (1) Acute hypoxemic respiratory failure: PLAN: Plan # Acute hypoxia and increasing shortness of breath suspect due to fluid overload -Patient initially 90% on room air however ended up on 6 L saturating in the 80s after laying down for PureWick placement and presently on BiPAP with sats at 94% -Patient with CXR bilateral patchy pulmonary densities pneumonia versus CHF -CTA w/ no PE but bilateral pneumonia or edema with pleural effusions. -Has elevated BNP of 379 -Given above with her increased swelling in lower extremities and weight gain suspect CHF -Admit to telemetry -Continue IV lasix -echo ordered -Daily weights, I's and O's -Fluid restriction, heart healthy diet -Will also check COVID and respiratory panels though again suspect fluid overload more likely culprit -No increased cough, white count, sputum production with foul or purulent sputum or fever to suggest pneumonia at this time so we will hold off on empiric antibiotics with low threshold to add if needed # History of CVA -Status post carotid endarterectomy, also on Coumadin -INR therapeutic at 2.1 -Continue statin # Normocytic anemia -Hemoglobin 11.1 -Hemoglobin several months ago 13.9 -Will check B12, folate, iron studies in the a.m. and repeat hemoglobin # Hypokalemia -Replace -Repeat in a.m. #Left upper lobe granuloma -Unclear significance and longevity -May need further imaging/monitoring/or follow-up #HTN -Continue amlodipine -Continue losartan at lower dose to allow room for diuresis -Continue metoprolol -Hold hydrochlorothiazide given low potassium and can further uptitrate other medications or readd if needed #GERD -Continue PPI #DVT ppx: Lovenox subcu Jaimie Vargas MD Time spent in the patient's overall evaluation,decision-making process, review of diagnostic data, adjustment of management, discussion with other providers, nursing nursing and ancillary staff involved in patient's care documentation, 56 Minutes CODE STATUS DISCUSSION: Discussed CODE STATUS with patient and and they would not want resuscitation if patient's heart were to stop beating. Discussed intubation however grandsons were present and is difficult to get straight answer and answers were evasive. Based on conversation patient DNR but would potentially be okay for intubation depending on the circumstances. Will need to clarify as able with patient and Charges/Coding Visit Charges Inpatient E&M: 36243 Init Hosp L2
--- NOTE | 2023-12-31 16:51 | CPS ---
pt states she would not handle the bipap at this time. stats she needed it off. RN aware.
[2023-12-31] MEDS: LORazepam 2 MG/ML Syringe 0.5 MG IV (17:36)
--- NOTE | 2023-12-31 18:01 | ECHOD_ITS ---
Reason For Study: CHF Procedure This was a 2D Doppler, Color Flow transthoracic echocardiogram. Exam performed portable in patient room. Left Ventricle Moderately dilated left ventricle. The estimated ejection fraction is 35-40 %. Right Ventricle Normal right ventricle. Normal systolic function. Atria The left atrium is moderately enlarged. Mitral Valve There is mild mitral annular calcification. Mild-Moderate (1-2+) mitral valve insufficiency. Tricuspid Valve Normal tricuspid valve. Mild tricuspid valve insufficiency. Aortic Valve Moderate diffuse aortic valve calcification. Pulmonic Valve The pulmonic valve is not well visualized. Great Vessels Mildly dilated aortic root. Pericardium/Pleural Small pericardial effusion. MMode/2D Measurements & Calculations LVIDd: 4.6 cm IVSd: 0.93 cm LVOT diam: 2.0 cm LVIDs: 2.8 cm LVPWd: 1.2 cm LVOT area: 3.1 cm2 RVDd: 3.9 cm FS: 40.2 % Ao root diam: 4.2 cm LAV(MOD-bp): 63.2 ml LVAd ap4: 26.4 cm2 LA dimension: 4.5 cm LAV(MOD-bp) Indexed: 36.7 ml/m2 LVLd ap4: 7.2 cm LAV(MOD-sp2): 69.2 ml EDV(MOD-sp4): 78.6 ml LAV(MOD-sp4): 45.1 ml EDV(sp4-el): 82.7 ml LVAs ap4: 20.3 cm2 LVLs ap4: 6.6 cm ESV(MOD-sp4): 51.3 ml ESV(sp4-el): 53.1 ml EF(MOD-sp4): 34.8 % EF(sp4-el): 35.8 % SV(MOD-sp4): 27.3 ml SV(sp4-el): 29.6 ml LA A4 area: 16.6 cm2 RA A4 area: 16.2 cm2 TAPSE: 1.9 cm Time Measurements MV dec time: 0.13 sec Doppler Measurements & Calculations MV E max emiliano: 108.6 cm/sec Lat Peak E' Emiliano: 7.3 cm/sec Med Peak E' Emiliano: 5.1 cm/sec MV A max emiliano: 57.9 cm/sec E/E' lat: 15.0 E/E' med: 21.2 MV E/A: 1.9 MV V2 max: 133.7 cm/sec MV P1/2t max emiliano: 133.7 cm/sec Ao V2 max: 189.6 cm/sec MV max P.1 mmHg MV P1/2t: 47.3 msec Ao max P.4 mmHg MV V2 mean: 57.1 cm/sec Ao V2 mean: 127.4 cm/sec MV mean P.7 mmHg MV dec slope: 827.3 cm/sec2 Ao mean P.4 mmHg MV V2 VTI: 25.4 cm MVA(P1/2t): 4.6 cm2 Ao V2 VTI: 39.8 cm AV (velocity ratio): 0.51 MVA(VTI): 2.5 cm2 EUGENE(I,D): 1.6 cm2 EUGENE(V,D): 1.4 cm2 LV V1 max: 87.3 cm/sec SV(LVOT): 63.1 ml PA V2 max: 102.0 cm/sec LV V1 max P.1 mmHg PA V2 mean: 70.2 cm/sec LV V1 mean P.9 mmHg LV V1 mean: 65.3 cm/sec LV V1 VTI: 20.4 cm ECHO/Echo Complete Interpretation Summary The estimated ejection fraction is 35-40 %. Moderate LV systolic dysfunction with segmental wall motion as described Small pericardial effusion Mild calcific aortic valve stenosis With aortic valve area 1.6 cm?? Aortic maximal pressure gradient of 14.4 With aortic mean pressure gradient of 7.4 mmHg No signs of cardiac tamponade No previous echo to compare Ordering Physician: Jaimie Vargas Performed By: Ganesh Scott RCS
[2023-12-31] MEDS: Jantoven 2 MG Tablet PO (18:59)
[2023-12-31] MEDS: Furosemide 40 MG/4 ML Vial IV (18:59)
[2023-12-31] MEDS: MELATONIN 3 MG TABLET PO (20:56)
[2023-12-31] MEDS: Metoprolol Tartrate 25 MG Tablet PO (20:57)
[2024-01-01] VITALS (11 sets, daily range): BP systolic 117–126; BP diastolic 54–80; PULSE 65–79; RESP 15–20; TEMP 36.2–37.1; O2SAT 92–99; BMI 26.8
[2024-01-01 04:58] LABS: Hematocrit 33.4 % (37-47); Hemoglobin 10.7 g/dL (12.0-15.0); Mean Corpuscular Hgb 31.1 pg (27.0-32.0); Mean Corpuscular Volume 97.1 fL (81-99); Mean Platelet Vol. 11.3 fl (6.2-12.0); Platelet Count 279 K/mm3 (150-450); RBC Distribution Width CV 16.3 % (11.6-14.6); RBC Distribution Width SD 57.1 fl (35.1-43.9); Red Blood Count 3.44 M/mm3 (4.2-5.4); White Blood Count 7.7 K/mm3 (4.4-11.0)
[2024-01-01 05:07] LABS: International Normalized Ratio 2.1; Prothrombin Time (Protime)PT. 23.2 SECONDS (11.7-14.9)
[2024-01-01 05:40] LABS: ALB/GLOB Ratio 0.9 RATIO (0.9-2.4); AST(SGOT) 16 U/L (15-37); Alanine Aminotransfer ALT/SGPT 15 U/L (13-56); Albumin, Serum 3.2 g/dL (3.2-5.0); Alkaline Phosphatase 69 U/L (45-117); Anion Gap 11 (5-15); BUN 22 mg/dL (7-18); BUN/Creat Ratio 22.4 RATIO (10-20); Calcium,Total 9.1 mg/dL (8.5-10.1); Chloride 101 mmol/L (98-107); Cholesterol 99 mg/dL (200); Creatinine, Serum 0.98 mg/dL (0.55-1.02); EST Glomerular Filtration Rate 57 mL/min (>60); Est Glom Filt Rate - Afr Amer 69 mL/min (>60); Estimated Creatinine Clearance 39.72 ml/min; Ferritin 257 ng/mL (8-252); Globulin 3.7 g/dL (2.2-4.2); Glucose 161 mg/dL (74-106); High Density Lipoprotein 23 mg/dL; Iron 36 ug/dL (50-170); Iron Binding Capacity,Total 286 ug/dL (250-450); Magnesium 1.6 mg/dL (1.6-2.6); PERCENT IRON SATURATION 12.6 % (15.0-55.0); Protein, Total 6.9 g/dL (6.4-8.2); Sodium Level 137 mmol/L (136-145); Triglycerides 191 mg/dL; Very Low Density Lipoprotein 38 mg/dL (5-40)
[2024-01-01] MEDS: Acetaminophen 325 MG Tablet 650 MG PO (06:27)
[2024-01-01 06:50] LABS: Bedside Glucose 164 mg/dL (74-106)
[2024-01-01 08:14] LABS: Hemoglobin A1c 6.8 % (3.8-5.6)
[2024-01-01] MEDS: Losartan Potassium 50 MG Tablet PO (08:41)
[2024-01-01] MEDS: Tolterodine Tartrate 2 MG CAP.SA PO (08:42)
[2024-01-01] MEDS: amLODIPine 5 MG Tablet PO (08:42)
[2024-01-01] MEDS: Furosemide 40 MG/4 ML Vial IV ×2 (08:42→16:28)
[2024-01-01] MEDS: Pantoprazole Sodium 20 MG Tablet PO (08:42)
[2024-01-01] MEDS: Metoprolol Tartrate 25 MG Tablet PO ×2 (08:44→21:13)
[2024-01-01] MEDS: Insulin Lispro 100 UNIT/ML INSULN.PEN SC ×2 (11:44→16:26)
[2024-01-01 12:00] LABS: Bedside Glucose 166 mg/dL (74-106)
--- NOTE | 2024-01-01 12:03 | PN.HOSP_ITS ---
Subjective Subjective Feel a bit better, she is down about 2 pounds Objective Data Objective Data Vital Signs: Vital Signs Temp Pulse Resp BP Pulse Ox O2 Del Method O2 Flow Rate 98.1 F 73 18 121/62 H 95 Nasal Cannula 5 01/01/24 08:00 01/01/24 08:44 01/01/24 08:00 01/01/24 08:00 01/01/24 08:00 01/01/24 08:59 01/01/24 09:01 FiO2 60 12/31/23 23:00 Oxygen Flow Rate (L/min) 5 Oxygen Delivery Method Nasal Cannula Weight: 151 lb 3.794 oz Body Mass Index (BMI) 26.8 Intake & Output: Intake and Output for Last 24 Hours 12/31/23 01/01/24 01/02/24 03:59 03:59 03:59 Intake Total 100 / 100 300 / 300 Output Total 500 / 500 750 / 750 Balance -400 / -400 -450 / -450 Lab / Micro Data 01/01/24 04:03 01/01/24 04:03 Labs: Laboratory Results - last 24 hr 12/31/23 12:27: WBC 5.3, RBC 3.54 L, Hgb 11.1 L, Hct 34.8 L, MCV 98.3, MCH 31.4, MCHC 31.9 L, RDW Std Deviation 58.6 H, RDW Coeff of Kate 16.1 H, Plt Count 243, MPV 11.1, Immature Gran % (Auto) 0.400, Neut % (Auto) 59.5, Lymph % (Auto) 26.0, [place] % (Auto) 10.1 H, Eos % (Auto) 3.4, Baso % (Auto) 0.6, Absolute Neuts (auto) 3.2, Absolute Lymphs (auto) 1.39, Nucleated RBC % 0, PT 23.1 H, INR 2.1, APTT 50.5 H, Sodium 139, Potassium 3.3 L, Chloride 105, Carbon Dioxide 25.0, Anion Gap 9, BUN 23 H, Creatinine 0.95, Estim Creat Clear Calc 41.36, Est GFR (MDRD) Af Amer 72, Est GFR (MDRD) Non-Af 60, BUN/Creatinine Ratio 24.2 H, Glucose 132 H , Calcium 9.6, Total Bilirubin 0.80, Direct Bilirubin 0.22, AST 17, ALT 22, Alkaline Phosphatase 81, Troponin I High Sens 11, B-Natriuretic Peptide 379.2 H, Total Protein 7.5, Albumin 3.4, Globulin 4.1 12/31/23 13:20: Urine Color Yellow, Urine Clarity Clear, Urine pH 7.0, Ur Specific [place] 1.005, Urine Protein Negative, Urine Glucose (UA) Normal, Urine Ketones Negative, Urine Occult Blood Negative, Urine Nitrite Negative, Urine Bilirubin Negative, Urine Urobilinogen Normal, Ur Leukocyte Esterase 500 H, Urine RBC 0 SEEN, Urine WBC 0-5 SEEN, Ur Squamous Epith Cells 0-5 SEEN, Urine Bacteria 0 SEEN, Urine Mucus 0 SEEN 12/31/23 14:22: Lactic Acid 1.1 01/01/24 04:03: WBC 7.7, RBC 3.44 L, Hgb 10.7 L, Hct 33.4 L, MCV 97.1, MCH 31.1, MCHC 32.0, RDW Std Deviation 57.1 H, RDW Coeff of Kate 16.3 H, Plt Count 279, MPV 11.3, PT 23.2 H, INR 2.1, Sodium 137, Potassium 3.0 L, Chloride 101, Carbon Dioxide 25.0, Anion Gap 11, BUN 22 H, Creatinine 0.98, Estim Creat Clear Calc 39.72, Est GFR (MDRD) Af Amer 69, Est GFR (MDRD) Non-Af 57 L, BUN/Creatinine Ratio 22.4 H, Glucose 161 H, Hemoglobin A1c 6.8 H, Calcium 9.1, Phosphorus 4.0, Magnesium 1.6, Iron 36 L, TIBC 286, Iron Saturation 12.6 L, Ferritin 257 H, Total Bilirubin 0.70, AST 16, ALT 15, Alkaline Phosphatase 69, Total Protein 6.9, Albumin 3.2, Globulin 3.7, Albumin/Globulin Ratio 0.9, Triglycerides 191, Cholesterol 99, LDL Cholesterol 38, VLDL Cholesterol 38, HDL Cholesterol 23 L, Folate 9.90, TSH 1.920 01/01/24 06:21: POC Glucose 164 H 01/01/24 11:39: POC Glucose 166 H Micro: Microbiology 12/31/23 20:05 Mucosa - Nasopharyngeal Respiratory Panel (PCR) - Final 12/31/23 18:10 Nasal Secretion SARS-CoV-2 Antigen (Rapid) - Final Radiography Diagnostic Testing: Radiology Impression Chest X-Ray 12/31/23 12:51 IMPRESSION: Bilateral pulmonary opacities as above. Questioned congestion/edema or multifocal pneumonia with small effusions. Electronically Signed: Bret Burgos MD at 13:47 EDT , Chest CTA 12/31/23 13:48 IMPRESSION: CTA chest examination, without a demonstrated pulmonary embolism or arterial dissection. Bilateral pneumonia or edema and pleural effusions. Electronically Signed: Matheus Mccurdy MD at 14:56 EDT , Physical Exam Narrative General: Alert, Oriented x3, Cooperative, No apparent distress HEENT: Atraumatic, PERRLA, EOMI, Normocephalic Oral: Moist Mucosa Neck: Supple, No JVD Lungs: Diminished, Normal air movement, No rhonchi, No wheeze, No rales Cardiovascular: Regular rate, Regular Rhythm, Normal S1, Normal S2, No murmurs Abdomen: Soft, Non Tender, Non-Distended, No Hepato-splenomegaly Extremities: Edema, Capillary Refill Less than 3 Seconds Skin: No rashes, No breakdown Musculoskeletal: No Tenderness to Palpation of Joints or Extremities Neurological: No focal neurological deficits, Motor Exam 5/5 strength throughout, Sensory exam intact to light touch and pain Psych/Mental Status: Normal Affect, Appropriate Assessment & Plan Assessment/Plan (1) Acute hypoxemic respiratory failure: PLAN: Plan 1. Acute hypoxia secondary to CHF exacerbation, unknown type ? Continue with IV diuresis ? CTA did not demonstrate a PE but did show oral effusions and edema ? Echo is pending ? Continue with I's and O's ?Respiratory panels are negative 2. Essential HTN/HLD/history of CVA status post carotid endarterectomy ? Blood pressures are stable ? Resume her home medications ? Will monitor make adjustments as necessary ? Currently on Coumadin, INR is therapeutic 3. 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 GERD ? Stable ? Continue with PPI DVT: Coumadin Charges/Coding Visit Charges Inpatient E&M: 71388 Subs Hosp L2
[2024-01-01] MEDS: Potassium Chloride Oral Tablet 20 MEQ 60 MEQ PO (12:25)
[2024-01-01] MEDS: Magnesium Sulfate 2 GM in Dextrose 5%-Water (100mL Bag) 100 ML IV (14:24)
[2024-01-01] MEDS: Jantoven 2 MG Tablet PO (16:28)
[2024-01-01 16:47] LABS: Bedside Glucose 197 mg/dL (74-106)
[2024-01-01] MEDS: 0.9% Saline Lock 10 ML Syringe IV (19:51)
[2024-01-01] MEDS: MELATONIN 3 MG TABLET PO (21:10)
[2024-01-02] VITALS (9 sets, daily range): BP systolic 115–141; BP diastolic 67–77; PULSE 72–90; RESP 16–20; TEMP 36.5–36.7; O2SAT 92–97; BMI 26.9
[2024-01-02 05:41] LABS: Absolute Lymphocyte Count 1.79 X10^3/uL (0.83-4.51); Absolute Neutrophil Count 3.8 X10^3/uL (2.0-7.7); Basophil# 0.05 X10^3/uL; Basophil% 0.7 % (0-1); Eosinophil# 0.26 X10^3/uL; Eosinophils% 3.8 % (0-5); Hemoglobin 11.2 g/dL (12.0-15.0); Lymphocyte # 1.79 X10^3/ul (0.83-4.51); Lymphocyte % 26.4 % (19-41); Mean Corpuscular Hgb 31.3 pg (27.0-32.0); Mean Corpuscular Volume 97.8 fL (81-99); Mean Platelet Vol. 11.1 fl (6.2-12.0); Monocyte# 0.89 X10^3/uL; Monocyte% 13.1 % (0-10); NRBC Flagged by Analyzer 0.3 % (0-5); Neutrophil # 3.78 X10^3/uL (2.7-7.7); Neutrophil % 55.9 % (47-70); Platelet Count 271 K/mm3 (150-450); RBC Distribution Width CV 16.1 % (11.6-14.6); RBC Distribution Width SD 57.3 fl (35.1-43.9); Red Blood Count 3.58 M/mm3 (4.2-5.4); White Blood Count 6.8 K/mm3 (4.4-11.0)
[2024-01-02 06:08] LABS: Anion Gap 8 (5-15); BUN 20 mg/dL (7-18); BUN/Creat Ratio 23.2 RATIO (10-20); Calcium,Total 9.8 mg/dL (8.5-10.1); Chloride 102 mmol/L (98-107); Creatinine, Serum 0.86 mg/dL (0.55-1.02); EST Glomerular Filtration Rate 67 mL/min (>60); Est Glom Filt Rate - Afr Amer 81 mL/min (>60); Estimated Creatinine Clearance 45.39 ml/min; Glucose 151 mg/dL (74-106); Potassium 3.4 mmol/L (3.5-5.1); Sodium Level 137 mmol/L (136-145)
[2024-01-02] MEDS: 0.9% Saline Lock 10 ML Syringe IV ×2 (06:34→18:07)
[2024-01-02 06:40] LABS: Bedside Glucose 146 mg/dL (74-106)
[2024-01-02] MEDS: Metoprolol Tartrate 25 MG Tablet PO ×2 (09:53→21:52)
[2024-01-02] MEDS: Furosemide 40 MG/4 ML Vial IV ×2 (09:53→18:07)
[2024-01-02] MEDS: Tolterodine Tartrate 2 MG CAP.SA PO (09:53)
[2024-01-02] MEDS: Losartan Potassium 50 MG Tablet PO (09:53)
[2024-01-02] MEDS: Pantoprazole Sodium 20 MG Tablet PO (09:54)
[2024-01-02] MEDS: amLODIPine 5 MG Tablet PO (09:54)
--- NOTE | 2024-01-02 10:26 | PCM.PN.HOSP ---
Reason for Visit Reason for Visit: Diagnoses Acute respiratory failure with hypoxia (12/31/23) Objective Data Objective Data Vital Signs: Vital Signs Temp Pulse Resp BP Pulse Ox O2 Del Method O2 Flow Rate 97.7 F L 78 20 H 141/77 H 94 Nasal Cannula 2 01/02/24 08:34 01/02/24 09:53 01/02/24 08:34 01/02/24 08:34 01/02/24 08:34 01/02/24 08:35 01/02/24 08:35 FiO2 60 12/31/23 23:00 Oxygen Flow Rate (L/min) 2 Oxygen Delivery Method Nasal Cannula Weight: 152 lb 1.903 oz Body Mass Index (BMI) 26.9 Intake & Output: Intake and Output for Last 24 Hours 12/31/23 01/01/24 01/02/24 23:59 23:59 23:59 Intake Total 100 / 100 804 / 1044 480 / 480 Output Total 1650 / 1750 850 / 850 Balance 100 / -400 -846 / -706 -370 / -370 Lab / Micro Data 01/02/24 04:18 01/02/24 04:18 Labs: Laboratory Results - last 24 hr 01/01/24 11:39: POC Glucose 166 H 01/01/24 16:25: POC Glucose 197 H 01/02/24 04:18: WBC 6.8, RBC 3.58 L, Hgb 11.2 L, Hct 35.0 L, MCV 97.8, MCH 31.3, MCHC 32.0, RDW Std Deviation 57.3 H, RDW Coeff of Kate 16.1 H, Plt Count 271, MPV 11.1, Immature Gran % (Auto) 0.100, Neut % (Auto) 55.9, Lymph % (Auto) 26.4, [place] % (Auto) 13.1 H, Eos % (Auto) 3.8, Baso % (Auto) 0.7, Absolute Neuts (auto) 3.8, Absolute Lymphs (auto) 1.79, Nucleated RBC % 0.3, Sodium 137, Potassium 3.4 L, Chloride 102, Carbon Dioxide 27.0, Anion Gap 8, BUN 20 H, Creatinine 0.86, Estim Creat Clear Calc 45.39, Est GFR (MDRD) Af Amer 81, Est GFR (MDRD) Non-Af 67, BUN/Creatinine Ratio 23.2 H, Glucose 151 H, Calcium 9.8 01/02/24 06:22: POC Glucose 146 H Micro: Microbiology 12/31/23 20:05 Mucosa - Nasopharyngeal Respiratory Panel (PCR) - Final 12/31/23 18:10 Nasal Secretion SARS-CoV-2 Antigen (Rapid) - Final Physical Exam Narrative Seen and examined. Patient states her shortness of breath has much improved. Leg swelling is also much improved. Was admitted with symptoms of CHF exacerbation. Talked to the patient's daughter and near the bedside. She states she had leg swelling in the past also and cough. She was treated for pneumonia for cough but her daughter said she might have CHF at that time. History of A-fib in past but was transient. Physical exam General: Alert, Oriented x3, Cooperative HEENT: Atraumatic, PERRLA, EOMI, Normocephalic Oral: No Gingival or Mucosal Lesions/ Ulcerations Neck: Supple, No JVD, Negative Carotid Bruits Chest wall/Lungs: Air entry diminished in bilateral lung bases. No crepitation/rhonchi Cardiovascular: Regular rate, Regular Rhythm, Normal S1, Normal S2, systolic murmur grade 4/6 at LLSB and apex. Abdomen: Bowel Sounds Present, Soft, Non Tender, Non-Distended : No dysuria. No renal angle tenderness. No suprapubic tenderness. Extremities: Leg edema resolved, Capillary Refill Less than 3 Seconds Skin: No rashes, No breakdown Musculoskeletal: No Tenderness to Palpation of Joints or Extremities. 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 Neurological: Cranial nerves II-XII grossly intact, DTR 2+/4. No acute focal neurological deficit. Psych/Mental Status: Normal Affect, Appropriate. Assessment & Plan Assessment/Plan (1) Acute hypoxemic respiratory failure: PLAN: Plan 83-year-old female was admitted with chief complaint of dyspnea/shortness of breath mainly on exertion and bilateral lower extremity swelling. 1. Acute hypoxia secondary to CHF exacerbation, unknown type possible acute on chronic: With patient history of leg swelling, shortness of breath and cough in the past, she might have undiagnosed CHF . Weight gain about 10 pound also complaining of hearing wheezing. Heart failure core measures including intake and output, fluid restriction less than 1500 mL, daily weight monitoring, kidney and electrolytes monitoring. ? Continue with IV diuresis, on furosemide 40 mg IV twice daily. ? CTA did not demonstrate a PE but did show pleural effusions and edema. 01/01 on 2 L of oxygen. ? Echo is pending ? Continue with I's and O's ?Respiratory panels are negative. COVID rapid antigen negative. 2. Mild hypokalemia: K3.4. Potassium was replaced. Essential HTN/HLD/history of CVA status post carotid endarterectomy on warfarin. 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 Blood pressure in normal range. Continue home medications ? Currently on Coumadin, INR is therapeutic INR 2.1. 3. Left upper lobe granuloma: CTA chest individually reviewed. No pulmonary embolism or arterial dissection. Alveolar patchy opacity more in central demonstration and some peripheral distribution. Bilateral pleural effusion, lung bases consolidation and atelectasis. More clinical presentation did not seem pneumonia but more CHF exacerbation. -Unclear significance and longevity -May need further imaging/monitoring/or follow-up 4. GERD ? Continue with PPI DVT: Coumadin Microbiology Past 72 Hours 12/31/23 20:05 Mucosa - Nasopharyngeal Respiratory Panel (PCR) - Final 12/31/23 18:10 Nasal Secretion SARS-CoV-2 Antigen (Rapid) - Final Laboratory Results 01/01/24 11:39: POC Glucose 166 H 01/01/24 16:25: POC Glucose 197 H 01/01/24 21:32: Vitamin B12 Pending 01/02/24 04:18: WBC 6.8, RBC 3.58 L, Hgb 11.2 L, Hct 35.0 L, MCV 97.8, MCH 31.3, MCHC 32.0, RDW Std Deviation 57.3 H, RDW Coeff of Kate 16.1 H, Plt Count 271, MPV 11.1, Immature Gran % (Auto) 0.100, Neut % (Auto) 55.9, Lymph % (Auto) 26.4, [place] % (Auto) 13.1 H, Eos % (Auto) 3.8, Baso % (Auto) 0.7, Absolute Neuts (auto) 3.8, Absolute Lymphs (auto) 1.79, Nucleated RBC % 0.3, Sodium 137, Potassium 3.4 L, Chloride 102, Carbon Dioxide 27.0, Anion Gap 8, BUN 20 H, Creatinine 0.86, Estim Creat Clear Calc 45.39, Est GFR (MDRD) Af Amer 81, Est GFR (MDRD) Non-Af 67, BUN/Creatinine Ratio 23.2 H, Glucose 151 H, Calcium 9.8 01/02/24 06:22: POC Glucose 146 H 01/02/24 11:19: POC Glucose 179 H Charges/Coding Visit Charges Inpatient E&M: 28033 Subs Hosp L2
[2024-01-02] MEDS: Insulin Lispro 100 UNIT/ML INSULN.PEN SC ×2 (11:20→16:31)
[2024-01-02 11:41] LABS: Bedside Glucose 179 mg/dL (74-106)
--- NOTE | 2024-01-02 16:15 | NURSING ---
Pt ambulating in room on RA, O2 92%.
[2024-01-02] MEDS: Jantoven 2 MG Tablet PO (16:32)
[2024-01-02 17:00] LABS: Bedside Glucose 215 mg/dL (74-106)
[2024-01-02] MEDS: MELATONIN 3 MG TABLET PO (21:52)
[2024-01-03 03:15] VITALS: BP 118/53; PULSE 72; RESP 15; TEMP 36.8; O2SAT 94
[2024-01-03 03:31] VITALS: BMI 26.1
[2024-01-03 05:38] LABS: Absolute Neutrophil Count 4.5 X10^3/uL (2.0-7.7); Basophil# 0.07 X10^3/uL; Basophil% 0.9 % (0-1); Eosinophils% 3.9 % (0-5); Hemoglobin 11.2 g/dL (12.0-15.0); Lymphocyte % 24.7 % (19-41); Mean Corpuscular Hgb 31.2 pg (27.0-32.0); Mean Corpuscular Volume 97.5 fL (81-99); Mean Platelet Vol. 10.2 fl (6.2-12.0); Monocyte# 0.94 X10^3/uL; Monocyte% 12.2 % (0-10); NRBC Flagged by Analyzer 0 % (0-5); Neutrophil # 4.46 X10^3/uL (2.7-7.7); Neutrophil % 57.9 % (47-70); Platelet Count 283 K/mm3 (150-450); RBC Distribution Width CV 15.9 % (11.6-14.6); RBC Distribution Width SD 56.5 fl (35.1-43.9); Red Blood Count 3.59 M/mm3 (4.2-5.4); White Blood Count 7.7 K/mm3 (4.4-11.0)
[2024-01-03 05:45] LABS: International Normalized Ratio 1.8; Prothrombin Time (Protime)PT. 21.2 SECONDS (11.7-14.9)
[2024-01-03 06:08] LABS: Anion Gap 10 (5-15); BUN 27 mg/dL (7-18); BUN/Creat Ratio 29.3 RATIO (10-20); Calcium,Total 9.4 mg/dL (8.5-10.1); Chloride 102 mmol/L (98-107); Creatinine, Serum 0.92 mg/dL (0.55-1.02); EST Glomerular Filtration Rate 62 mL/min (>60); Est Glom Filt Rate - Afr Amer 75 mL/min (>60); Estimated Creatinine Clearance 41.82 ml/min; Glucose 159 mg/dL (74-106); Potassium 3.2 mmol/L (3.5-5.1); Sodium Level 137 mmol/L (136-145)
--- NOTE | 2024-01-03 07:23 | DCINST_ITS ---
Discharge Instructions Diet Discharge Diet: Low fat / Low cholesterol, 8 Cup Fluid Restriction and 2000 mg Sodium Diet Activity Discharge Activity: Return to Normal Activity Weight Bearing Status: Weight bearing as tolerated Dressing / Incision Call your doctor if you observe: Fever of 101 or Higher, Coldness, Increased Pain, Numbness or Tingling, Change in Color, Inability to urinate, Inability to have a bowel movement, Shortness of breath, Dizziness, Fainting spells, Swelling in the ankles, Chest pain, Prolonged hiccupping, Increased palpitations (irregular heartbeat) and Calf discomfort Follow Up Care When: IN 2 WEEKS Test Results: Test results from this visit will be discussed in further detail at your follow- up appointment, if applicable. Discharge Plan Admission Admit Date/Time: 12/31/23 16:11 Primary Reason for Your Visit: CHF exacerbation Attending Provider: Sukhdev Hernandez Primary Care Provider: Kendra Lucio Consulting Providers: Jaimie Vargas; Tavares Sargent Discharge Orders/Prescriptions Prescriptions: New losartan 50 mg Tablet 50 mg PO DINNER 30 Days Qty: 30 2RF furosemide 40 mg Tablet 40 mg PO BIDLX 30 Days Qty: 60 2RF metoprolol succinate 50 mg tablet extended release 24 hr 50 mg PO DAILY 30 Days Qty: 30 2RF Continued omeprazole 20 mg capsule,delayed release(DR/EC) 20 mg PO DAILY oxybutynin chloride 10 mg tablet extended release 24hr 10 mg PO DAILY simvastatin 80 mg tablet 80 mg PO QHS warfarin 2 mg tablet 2 mg PO DAILY Rx Instructions: Pt takes 2mg everyday except for Wednesdays she takes 1 mg fluticasone propionate 50 mcg/actuation spray,suspension 2 spray INTRANASAL DAILY PRN (Reason: nasal congestion) glimepiride 2 mg tablet 2 mg PO DAILY tizanidine 4 mg tablet 4 mg PO QHS PRN PRN (Reason: muscle spasm) Discontinued amlodipine 5 mg tablet 5 mg PO DAILY losartan-hydrochlorothiazide 100-25 mg tablet 1 tab PO DAILY metoprolol tartrate 50 mg tablet 25 mg PO TID Referrals / Follow Up: Kendra Lucio MD [Primary Care Provider] - Within 2 Weeks Roly Herrera MD [Med Staff - Active Staff] - Within 2 Weeks (New onset HF) Disposition Disposition (needs filled in before D/C Order can be placed): Home, Self Care
[2024-01-03 07:47] LABS: Vitamin B12 333 pg/mL (211-911)
[2024-01-03 08:00] VITALS: O2SAT 96
[2024-01-03] MEDS: Insulin Lispro 100 UNIT/ML INSULN.PEN SC ×2 (08:24→11:50)
[2024-01-03 08:29] VITALS: BP 138/80; PULSE 84; RESP 17; TEMP 36.5; O2SAT 95
[2024-01-03 08:50] LABS: Bedside Glucose 161 mg/dL (74-106)
[2024-01-03] MEDS: Losartan Potassium 50 MG Tablet PO (09:54)
[2024-01-03 09:55] VITALS: PULSE 84
[2024-01-03] MEDS: Metoprolol Tartrate 25 MG Tablet PO (09:55)
[2024-01-03] MEDS: amLODIPine 5 MG Tablet PO (09:56)
[2024-01-03] MEDS: Pantoprazole Sodium 20 MG Tablet PO (09:56)
[2024-01-03] MEDS: Tolterodine Tartrate 2 MG CAP.SA PO (09:59)
[2024-01-03] MEDS: Furosemide 40 MG Tablet PO (09:59)
--- NOTE | 2024-01-03 10:45 | CASEMGMT ---
RN CM Face to Face with patient for initial transition planning/care coordination assessment. RN CM introduced self and role at [facility]. Patient lying in bed, alert and oriented. Patient willing to participate in assessment and is able to answer all questions appropriately. Care providers, pharmacy, and demographics verified. Strata: 2 PCP: Khadijah Specialists: [facility]WR[facility] Benav[facility] Preferred Pharmacy: [facility] Prescription Benefit: yes Living Will/HPOA: yes, Calderon Braun LNOK: Living Arrangements: Patient lives with in a single story home with 3 steps and railing to enter the home. Patient is independent at home. Transportation: self, DME/HHC: Patient has walker, grab bars, and pulse ox. Patient wishes to discharge with oxygen, explained qualification process, nursing to test. Patient prefers [employer] for home oxygen, will nancy. No previous HHC or SNF Patient wishes to discharge home, denies need for home health at this time. Patient states he has no further needs or concerns at this time. CM to follow for discharge planning needs that may arise. Disposition Plan: Patient to discharge home with family support and follow-up plans in place. Lacey ZAVALA, RN, CM
[2024-01-03 11:23] VITALS: O2SAT 2; O2SAT 87; O2SAT 95
--- NOTE | 2024-01-03 11:50 | DS.PCM_ITS ---
Providers Date of Admission: 12/31/23 Date of Discharge: 01/03/24 Primary Care Physician: Dr. Kendra Lucio MD Reason For Visit: ACUTE HYPOXIC RESPIRATORY FAILURE Diagnosis Discharge Diagnosis (1) Acute hypoxemic respiratory failure: Status: Acute Code(s): J96.01 - Acute respiratory failure with hypoxia Plan 83-year-old female was admitted with chief complaint of dyspnea/shortness of breath mainly on exertion and bilateral lower extremity swelling. 1. Acute hypoxia secondary to CHF exacerbation, unknown type possible acute on chronic: With patient history of leg swelling, shortness of breath and cough in the past, she might have undiagnosed CHF . Weight gain about 10 pound also complaining of hearing wheezing. Heart failure core measures including intake and output, fluid restriction less than 1500 mL, daily weight monitoring, kidney and electrolytes monitoring. ? Continue with IV diuresis, on furosemide 40 mg IV twice daily. ? CTA did not demonstrate a PE but did show pleural effusions and edema. 01/01 on 2 L of oxygen. ? Echo is pending ? Continue with I's and O's ?Respiratory panels are negative. COVID rapid antigen negative. 01/02: 2D echo reviewed. EF 35 to 40%. Moderate LV systolic dysfunction, mild to moderate MR, mild TR, mild aortic valve calcification with mild aortic stenosis. No signs of cardiac tamponade. No previous echo to compare Patient is being discharged on furosemide 40 mg twice daily, spironolactone 12.5 mg daily, metoprolol succinate and losartan. Amlodipine and HCTZ discontinued. Follow-up with the natural resources engineer Dr. Roly Herrera in 2 weeks. Fluid restriction to 8 cups daily. Home oxygen qualification test was done. Pulse ox 95% at rest on room air, 87% on ambulation and required 2 L oxygen, pulse ox 97%. I have reviewed the oxygen testing, and this patient qualifies for the home equipment and portability. The patient is mobile in the home and the community. 2. Mild hypokalemia: K3.4. Potassium was replaced. Essential HTN/HLD/history of CVA status post carotid endarterectomy on warfarin. 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 Blood pressure in normal range. Continue home medications ? Currently on Coumadin, INR is therapeutic INR 2.1. 01/02: INR 1.8. Warfarin dose increased to 2 mg daily. Monitor INR as an outpatient 3. Left upper lobe granuloma: CTA chest individually reviewed. No pulmonary embolism or arterial dissection. Alveolar patchy opacity more in central demonstration and some peripheral distribution. Bilateral pleural effusion, lung bases consolidation and atelectasis. More clinical presentation did not seem pneumonia but more CHF exacerbation. -Unclear significance and longevity -May need further imaging/monitoring/or follow-up with PCP 4. GERD ? Continue with PPI DVT: Coumadin Discharge medication reconciliation done. Discharge follow-up instructions completed. Discharge process discussed with the patient and all questions were answered to patient's satisfaction. Follow with PCP in 1 to 2 weeks Total time spent, exact 35 minutes on discharge meds reconciliation, examination, coordination of care with nurses and ancillary staff, review of imaging and blood test and discussion with the patient on follow-up instructions. Microbiology Past 72 Hours 12/31/23 20:05 Mucosa - Nasopharyngeal Respiratory Panel (PCR) - Final 12/31/23 18:10 Nasal Secretion SARS-CoV-2 Antigen (Rapid) - Final Laboratory Results 01/01/24 21:32: Vitamin B12 333 01/02/24 11:19: POC Glucose 179 H 01/02/24 16:28: POC Glucose 215 H 01/03/24 05:19: WBC 7.7, RBC 3.59 L, Hgb 11.2 L, Hct 35.0 L, MCV 97.5, MCH 31.2, MCHC 32.0, RDW Std Deviation 56.5 H, RDW Coeff of Kate 15.9 H, Plt Count 283, MPV 10.2, Immature Gran % (Auto) 0.400, Neut % (Auto) 57.9, Lymph % (Auto) 24.7, M khanh % (Auto) 12.2 H, Eos % (Auto) 3.9, Baso % (Auto) 0.9, Absolute Neuts (auto) 4.5, Absolute Lymphs (auto) 1.90, Nucleated RBC % 0, PT 21.2 H, INR 1.8, Sodium 137, Potassium 3.2 L, Chloride 102, Carbon Dioxide 25.0, Anion Gap 10, BUN 27 H, Creatinine 0.92, Estim Creat Clear Calc 41.82, Est GFR (MDRD) Af Amer 75, Est GFR (MDRD) Non-Af 62, BUN/Creatinine Ratio 29.3 H, Glucose 159 H, Calcium 9.4 Clinical Impression(s) from Imaging Studies Chest X-Ray 12/31/23 12:51 IMPRESSION: Bilateral pulmonary opacities as above. Questioned congestion/edema or multifocal pneumonia with small effusions. Electronically Signed: Bret Burgos MD at 13:47 EDT , Chest CTA 12/31/23 13:48 IMPRESSION: CTA chest examination, without a demonstrated pulmonary embolism or arterial dissection. Bilateral pneumonia or edema and pleural effusions. Electronically Signed: Matheus Mccurdy MD at 14:56 EDT , Echocardiogram 12/31/23 18:01 Interpretation Summary The estimated ejection fraction is 35-40 %. Moderate LV systolic dysfunction with segmental wall motion as described Small pericardial effusion Mild calcific aortic valve stenosis With aortic valve area 1.6 cm?? Aortic maximal pressure gradient of 14.4 With aortic mean pressure gradient of 7.4 mmHg No signs of cardiac tamponade No previous echo to compare Ordering Physician: Jaimie Vargas Performed By: Ganesh Scott RCS Medications at Discharge Home Medications omeprazole 20 mg capsule,delayed release 20 mg PO DAILY reflux 09/23/23 oxybutynin chloride 10 mg tablet,extended release 24 hr 10 mg PO DAILY bladder 09/23/23 simvastatin 80 mg tablet 80 mg PO QHS cholesterol 09/23/23 warfarin 2 mg tablet 2 mg PO DAILY blood thinner 09/23/23 fluticasone propionate 50 mcg/actuation nasal spray,suspension 2 spray intranasal DAILY PRN nasal congestion 12/31/23 glimepiride 2 mg tablet 2 mg PO DAILY dm 12/31/23 tizanidine 4 mg tablet 4 mg PO QHS PRN PRN muscle spasm 12/31/23 furosemide 40 mg tablet 40 mg PO BIDLX 30 days #60 tabs 01/03/24 losartan 50 mg tablet 50 mg PO DINNER 30 days #30 tabs 01/03/24 metoprolol succinate 50 mg tablet,extended release 24 hr 50 mg PO DAILY 1 month #30 tabs 01/03/24 spironolactone 25 mg tablet 12.5 mg (1/2 x 25 mg) PO DAILY #30 tabs 01/03/24 Physical Exam Narrative Seen and examined. Shortness of breath is much improved leg swelling also resolved. Patient is comfortable. 2D echo reviewed with the patient and her family members. History of A-fib in past but was transient. Physical exam General: Alert, Oriented x3, Cooperative HEENT: Atraumatic, PERRLA, EOMI, Normocephalic Oral: No Gingival or Mucosal Lesions/ Ulcerations Neck: Supple, No JVD, Negative Carotid Bruits Chest wall/Lungs: Air entry diminished in bilateral lung bases. No crepitation/rhonchi Cardiovascular: Regular rate, Regular Rhythm, Normal S1, Normal S2, systolic murmur grade 4/6 at LLSB and apex. Abdomen: Bowel Sounds Present, Soft, Non Tender, Non-Distended : No dysuria. No renal angle tenderness. No suprapubic tenderness. Extremities: Leg edema resolved, Capillary Refill Less than 3 Seconds Skin: No rashes, No breakdown Musculoskeletal: No Tenderness to Palpation of Joints or Extremities. 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 Neurological: Cranial nerves II-XII grossly intact, DTR 2+/4. No acute focal neurological deficit. Psych/Mental Status: Normal Affect, Appropriate. Weight / BMI Weight Weight: 147 lb 7.828 oz Body Mass Index (BMI) 26.1 ABG / Lab / Microbiology Data 01/03/24 05:19 01/03/24 05:19 Laboratory: Laboratory Results - last 24 hr 01/02/24 11:19: POC Glucose 179 H 01/02/24 16:28: POC Glucose 215 H 01/03/24 05:19: WBC 7.7, RBC 3.59 L, Hgb 11.2 L, Hct 35.0 L, MCV 97.5, MCH 31.2, MCHC 32.0, RDW Std Deviation 56.5 H, RDW Coeff of Kate 15.9 H, Plt Count 283, MPV 10.2, Immature Gran % (Auto) 0.400, Neut % (Auto) 57.9, Lymph % (Auto) 24.7, M khanh % (Auto) 12.2 H, Eos % (Auto) 3.9, Baso % (Auto) 0.9, Absolute Neuts (auto) 4.5, Absolute Lymphs (auto) 1.90, Nucleated RBC % 0, PT 21.2 H, INR 1.8, Sodium 137, Potassium 3.2 L, Chloride 102, Carbon Dioxide 25.0, Anion Gap 10, BUN 27 H, Creatinine 0.92, Estim Creat Clear Calc 41.82, Est GFR (MDRD) Af Amer 75, Est GFR (MDRD) Non-Af 62, BUN/Creatinine Ratio 29.3 H, Glucose 159 H, Calcium 9.4 Microbiology: Microbiology 12/31/23 20:05 Mucosa - Nasopharyngeal Respiratory Panel (PCR) - Final 12/31/23 18:10 Nasal Secretion SARS-CoV-2 Antigen (Rapid) - Final Radiography Diagnostic Testing: Radiology Impression Echocardiogram 12/31/23 18:01 Interpretation Summary The estimated ejection fraction is 35-40 %. Moderate LV systolic dysfunction with segmental wall motion as described Small pericardial effusion Mild calcific aortic valve stenosis With aortic valve area 1.6 cm?? Aortic maximal pressure gradient of 14.4 With aortic mean pressure gradient of 7.4 mmHg No signs of cardiac tamponade No previous echo to compare Ordering Physician: Jaimie Vargas Performed By: Ganesh Scott RCS D/C Instructions Discharge Diet: Low fat / Low cholesterol, 8 Cup Fluid Restriction and 2000 mg Sodium Diet Weight Bearing Status: Weight bearing as tolerated Call your doctor if you observe: Fever of 101 or Higher, Coldness, Increased Pain, Numbness or Tingling, Change in Color, Inability to urinate, Inability to have a bowel movement, Shortness of breath, Dizziness, Fainting spells, Swelling in the ankles, Chest pain, Prolonged hiccupping, Increased palpitations (irregular heartbeat) and Calf discomfort When: IN 2 WEEKS Meaningful Use Info Meaningful Use Meaningful Use Diagnoses (Choose all that apply): CHF CHF JUAN J/ARB ordered at discharge?: Yes Documented LVEF (%): 35 Ischemic Stroke Statin Dosing Therapy Reference: STATIN DOSE THERAPY REFERENCE: * Patients > 75 years receive moderate or high dose statin therapy. * Patients 75 years or YOUNGER should receive HIGH intensity statin dose unless contraindicated. You will be required to document reason for non-treatment if statin daily dose does not meet guidelines. HIGH DOSE STATIN THERAPY DAILY Atorvastatin > than or = to 40 mg Rosuvastatin > than or = to 20 mg Amlodipine + Atorvastatin > than or = to 2.5/40 mg Ezetimibe + Simvastatin 10/80 mg Simvastatin 80mg Discharge Plan Admission Admit Date/Time: 12/31/23 16:11 Primary Reason for Your Visit: CHF exacerbation Attending Provider: Sukhdev Hernandez Primary Care Provider: Kendra Lucio Consulting Providers: Jaimie Vargas; Tavares Sargent Discharge Orders/Prescriptions Prescriptions: New losartan 50 mg Tablet 50 mg PO DINNER 30 Days Qty: 30 2RF furosemide 40 mg Tablet 40 mg PO BIDLX 30 Days Qty: 60 2RF metoprolol succinate 50 mg tablet extended release 24 hr 50 mg PO DAILY 30 Days Qty: 30 2RF spironolactone 25 mg tablet 12.5 mg PO DAILY Qty: 30 2RF Rx Instructions: Hold for serum potassium more than 5.0 Continued omeprazole 20 mg capsule,delayed release(DR/EC) 20 mg PO DAILY oxybutynin chloride 10 mg tablet extended release 24hr 10 mg PO DAILY simvastatin 80 mg tablet 80 mg PO QHS warfarin 2 mg tablet 2 mg PO DAILY Rx Instructions: Pt takes 2mg everyday except for Wednesdays she takes 1 mg fluticasone propionate 50 mcg/actuation spray,suspension 2 spray INTRANASAL DAILY PRN (Reason: nasal congestion) glimepiride 2 mg tablet 2 mg PO DAILY tizanidine 4 mg tablet 4 mg PO QHS PRN PRN (Reason: muscle spasm) Discontinued amlodipine 5 mg tablet 5 mg PO DAILY losartan-hydrochlorothiazide 100-25 mg tablet 1 tab PO DAILY metoprolol tartrate 50 mg tablet 25 mg PO TID Referrals / Follow Up: Kendra Lucio MD [Primary Care Provider] - Within 2 Weeks Roly Herrera MD [Med Staff - Active Staff] - Within 2 Weeks (New onset HF) Disposition Disposition (needs filled in before D/C Order can be placed): Home, Self Care Charges/Coding Visit Charges Inpatient E&M: 47191 Disch Hosp >30min
--- NOTE | 2024-01-03 11:56 | CASEMGMT ---
[facility] updated by nursing that patient will need oxygen at discharge. Script received and referral to sent to [facility] made arrangements to have oxygen tank delivered to patient room. Patient had no further questions or concerns. [facility] updated discharge plan.
[2024-01-03 12:10] LABS: Bedside Glucose 218 mg/dL (74-106)
--- NOTE | 2024-01-03 16:23 | CHAPLAIN ---
Type of Pastoral Visit ___ Initial Visit ___ Follow-up Visit ___ On-call Visit ___ General Patient Visit ___ Spiritual Assessment ___ Family Conference ___ Bereavement ___ Rapid Response ___ Code Blue ___ Other (describe below) Pastoral Care Referral From ___ Patient ___ Family ___ Nurse ___ Physician ___ Manager Critical Care ___ Cork Insulator Helper ___ Other (describe below) Sacrament/Intervention ___ Active listening ___ Anointing ___ Zoroastrianism ___ Bereavement ___ Communion ___ Emmy exploration ___ ___ Life review ___ Prayer ___ Reconciliation ___ Sacrament of Sick ___ Supportive presence ___ Wedding ___ Other (describe below) Pastoral Comments patient was not in the room at time of attempted visit
== END 2024-01-03 13:05 | disposition home or self-care (01) | DRG 291 ==
LOC: ED 15:31 → PCU 17:18
PROVIDERS: Family Medicine; Admitting Provider Internal Medicine; Emergency Provider Emergency Medicine; PCP Internal Medicine; Visit Provider Internal Medicine
DX: I11.0 Hypertensive heart disease with heart failure (principal); J96.01 Acute respiratory failure with hypoxia; J84.10 Pulmonary fibrosis, unspecified; D64.9 Anemia, unspecified; I50.9 Heart failure, unspecified; I48.91 Unspecified atrial fibrillation; E78.5 Hyperlipidemia, unspecified; E87.6 Hypokalemia; K21.9 Gastro-esophageal reflux disease without esophagitis; Z79.01 Long term (current) use of anticoagulants; Z11.52 Encounter for screening for COVID-19; Z79.84 Long term (current) use of oral hypoglycemic drugs; Z79.899 Other long term (current) drug therapy; Z86.73 Personal history of transient ischemic attack (TIA), and cerebral infarction without residual deficits
CPT/HCPCS: 36415; 71045; 71275; 80048; 80053; 80061; 80076; 81001; 82607; 82728; 82746; 82962; 83036; 83540; 83550; 83605; 83735; 83880; 84100; 84443; 84484; 85025; 85027; 85610; 85730; 87633; 87811; 93005; 93306; 94002; 94668; 97116; 97163; 97166; 97530; 97535; 99252; 99285; J7040; Q9957; Q9967; A4216; G0463; J1940

== ENCOUNTER 2024-01-13 11:37 | Emergency (ER) | payer MEDICARE, SELFPAY ==
[2024-01-13 11:38] VITALS: BP 136/65; PULSE 59; RESP 16; TEMP 36.8; O2SAT 99; BMI 26.8
--- NOTE | 2024-01-13 13:42 | VDLE_ITS ---
Reason For Study: Right leg pain RIGHT GSV is normal. CFV is compressible, spontaneous, phasic, competent and demonstrates normal augmentation. FV is compressible, spontaneous, phasic, competent and demonstrates normal augmentation. POP V is compressible, spontaneous, phasic, competent and demonstrates normal augmentation. T/P Trunk is compressible. PTV is compressible. RT PerV is compressible. Procedure This is a venous duplex using B-mode, color flow and spectral Doppler. Exam performed in department. A preliminary report was called and/or faxed to Dr. Fabian. VL/Venous Duplex US, Unilateral Interpretation Summary Deep veins of the right lower extremity are patent and compressible segmentally . There is no evidence of right lower extremity deep vein thrombosis. Valvular competence apurva ears intact within the proximal deep venous system on the right . The right great saphenous vein a ppears patent and compressible segmentally. Ordering Physician: Matheus Fabian Referring Physician: Kendra Lucio M.D. Performed By: Lacey Samayoa RVT
--- NOTE | 2024-01-13 13:42 | RAD_ITS ---
STUDY: X-RAY - RIGHT FOOT CLINICAL: Female, 83 years old. Pain, ? infection forefoot. Redness in foot x 1 month. TECHNIQUE: 3 views of the right foot. COMPARISON: None. FINDINGS: Normal talus, calcaneus, and tarsal bones. Normal visualized subtalar, talonavicular, calcaneocuboid, tarsal and tarsometatarsal articulations. Normal metatarsi. Normal metatarsophalangeal joint of the great toe. Normal tibial and fibular sesamoid bones. Normal interphalangeal joint of the great toe. Normal phalanges of the great toe. Normal second through fifth metatarsophalangeal joints. Normal interphalangeal joints and phalanges of the lesser toes. There is no demonstrated fracture. There is mild soft tissue swelling of the forefoot. There are atherosclerotic calcifications. RAD/Foot min 3 Views IMPRESSION: Mild soft tissue swelling of the forefoot. Electronically Signed: Clayton Wilhelm MD at 14:40 EDT ,
--- NOTE | 2024-01-13 13:43 | EX.ED.DYSGE1 ---
HPI History of Present Illness Chief Complaint: Cellulitis Informant: patient and spouse/S.O. Narrative Narrative: 83-year-old female presents with right foot pain, swelling, redness. She states it has been like this for months, gradually worsening. 1.5 months ago she had pneumonia and was on antibiotics but those are the only systemic antibiotics she has been on since this started. She thought she was getting the pneumonia back several weeks ago when she came to the hospital and was actually in congestive heart failure and was admitted. She had edema in both of her legs. She developed some blisters on the right side, one of them ruptured, but her right foot was already red, painful, swollen way before that for a couple months. She states it is progressively been worsening, and now the edema is a lot better in both of her legs, but she still has it in her right forefoot where the majority of the redness and pain and warmth is. She has pain that radiates up into her right lower leg, both anteriorly and posteriorly. She is concerned about a DVT although she is never had 1 before and she is already on warfarin because of factor V Leiden, TIA, and A-fib history. She states the breathing and chest symptoms are all gone and better, she denies any fevers or chills or other systemic symptoms right now, she is really concerned about her right foot. She saw her PCP yesterday and she was put on some topical treatment but no systemic treatments and she is seeking another opinion. [facility] Medical History Atrial fibrillation Factor V Leiden Anxiety Anemia Hypokalemia Acute hypoxemic respiratory failure CHF (congestive heart failure) Home Medications ?Medication ?Instructions ?Recorded ?Last Taken ?Type omeprazole 20 mg capsule,delayed 20 mg PO DAILY reflux 09/23/23 12/31/23 History release oxybutynin chloride 10 mg 10 mg PO DAILY bladder 09/23/23 12/31/23 History tablet,extended release 24 hr simvastatin 80 mg tablet 80 mg PO QHS cholesterol 09/23/23 12/31/23 History warfarin 2 mg tablet 2 mg PO DAILY blood thinner 09/23/23 12/31/23 History fluticasone propionate 50 2 spray intranasal DAILY PRN nasal 12/31/23 12/31/23 History mcg/actuation nasal congestion spray,suspension glimepiride 2 mg tablet 2 mg PO DAILY dm 12/31/23 Unknown History tizanidine 4 mg tablet 4 mg PO QHS PRN PRN muscle spasm 12/31/23 Unknown History furosemide 40 mg tablet 40 mg PO BIDLX 30 days #60 tabs 01/03/24 Unknown Rx losartan 50 mg tablet 50 mg PO DINNER 30 days #30 tabs 01/03/24 Unknown Rx metoprolol succinate 50 mg 50 mg PO DAILY 1 month #30 tabs 01/03/24 Unknown Rx tablet,extended release 24 hr spironolactone 25 mg tablet 12.5 mg (1/2 x 25 mg) PO DAILY #30 01/03/24 Unknown Rx tabs cephalexin 500 mg capsule 500 mg PO Q6 #40 CAPSULES 01/13/24 Unknown Rx Allergy/AdvReac Type Severity Reaction Status Date / Time benazepril (From Lotensin) Allergy Mild DOESNT Verified 01/13/24 11:40 REMEMBER quinapril (From Accupril) Allergy Mild UNKNOWN Verified 01/13/24 11:40 Sulfa (Sulfonamide Allergy Mild Hives Verified 01/13/24 11:40 Antibiotics) verapamil (From Calan) Allergy Mild UNKNOWN Verified 01/13/24 11:40 Surgical History S/P carotid endarterectomy Social History Smoking Status: Never smoker ROS ROS ED Constitutional Constitutional ED: Denies chills or fever(s) Cardiovascular Cardiovascular: Denies chest pain Respiratory/Chest Respiratory/Chest: Denies dyspnea Musculoskeletal Musculoskeletal: Reports extremity pain; Denies neck pain Integumentary Reports rash and wounds; Denies Abrasions Neurologic Neurologic: Denies paresthesias or weakness EXAM Physical Exam Const Vital Signs: 01/13/24 11:38 Temperature 98.2 F Temperature Source Temporal Pulse Rate 59 L Respiratory Rate 16 Blood Pressure 136/65 H Blood Pressure Mean 88 Pulse Ox 99 Oxygen Delivery Method Room Air Positive well nourished and well developed General Appearance ED: well developed and NAD Neck full ROM and supple Back/Spine normal ROM and normal to inspection Extremity Extremity Narrative: Right forefoot is erythematous in all toes, and extremely tender. There is no subcutaneous emphysema. There is a nonruptured bulla at the dorsum of the forefoot base of toes 2-4, without any necrotic tissue. There is a smaller ruptured bulla without any necrotic tissue in the area of erythema on the dorsum of the right great toe, there is some serous discharge without any active bleeding or purulent discharge. There is no other sign of any collection. The erythema and tenderness progressed to the plantar aspect but less tender. She is tender to about the mid metatarsals, and proximal to that there is some slight erythema but no other areas of tenderness. Multiple varicose veins in the calf without any palpable cords or tenderness. All compartment soft and nondistended. Full range of motion of all joints except for the toes which is limited due to pain. There is no lymphangitis. None of these findings are present on the contralateral foot. Neuro oriented x3, no focal motor deficits and no sensory deficits noted Sensorium / Orientation: alert Psych mental status grossly normal and thought process normal Skin Skin Narrative: See above for rash and blisters on the right forefoot. MDM MDM MDM Narrative Medical decision making narrative: I do think this looks infected. She is wanting antibiotics but she also states at the same time has a history of C. difficile. We discussed that will be a risk the matter what antibiotic she is prescribed. Obtaining labs, including an INR, x-ray of the right foot, as well as a venous duplex Doppler to rule out DVT which I do not think she has an acute. With regards to the venous Doppler ultrasound, I reviewed the images and the report which I agree with and I spoke with the product development technician. It is negative for any acute DVT or chronic DVT. In addition his INR is 2.6, therapeutic. Three-view x-ray series of the right foot on my interpretation shows no signs of osteomyelitis or subcutaneous emphysema or other focal radiopaque abnormality in the area of interest. She does not have a leukocytosis, her ESR is within normal limits, also arguing against osteomyelitis. CRP is elevated but not very high, it only 4.74. She is not very hyperglycemic either at 130. I do not think she needs to be admitted for this. Am going to start her on antibiotics and try a course of systemic cephalexin which is less likely to manipulate her warfarin but still give appropriate coverage if this is infection. She understands the risk of C. difficile and we discussed ways to mitigate that risk using probiotics. She wants the antibiotics understands the risk and is comfortable that overall plan and advised to follow-up with podiatry as soon as possible. Also given her a postop shoe to make it more comfortable to walk. Lab Data Attestation: I reviewed the patient's lab results. Labs: Laboratory Results - last 24 hr 01/13/24 13:45 WBC 7.0 RBC 3.69 L Hgb 11.4 L Hct 36.9 L MCV 100.0 H MCH 30.9 MCHC 30.9 L RDW Std Deviation 59.6 H RDW Coeff of Kate 16.4 H Plt Count 294 MPV 11.4 Immature Gran % (Auto) 0.300 Neut % (Auto) 62.6 Lymph % (Auto) 24.6 [place] % (Auto) 8.7 Eos % (Auto) 2.9 Baso % (Auto) 0.9 Absolute Neuts (auto) 4.4 Absolute Lymphs (auto) 1.72 Nucleated RBC % 0.4 ESR 8 PT 27.5 H INR 2.6 Sodium 138 Potassium 3.6 Chloride 106 Carbon Dioxide 26.0 Anion Gap 6 BUN 20 H Creatinine 0.98 Estim Creat Clear Calc 39.73 Est GFR (MDRD) Af Amer 70 Est GFR (MDRD) Non-Af 58 L BUN/Creatinine Ratio 20.4 H Glucose 130 H Calcium 9.9 C-React Prot Ext Range 4.74 H Discharge Plan Triage Chief Complaint: Cellulitis ED Provider: Matheus Fabian Dx/Rx/DC Orders Clinical Impression: Cellulitis of foot, right, Warfarin-induced coagulopathy, Acute pain of right lower extremity Instructions: ED Cellulitis Prescriptions: New cephalexin 500 mg capsule 500 mg PO Q6 Qty: 40 0RF No Action omeprazole 20 mg capsule,delayed release(DR/EC) 20 mg PO DAILY oxybutynin chloride 10 mg tablet extended release 24hr 10 mg PO DAILY simvastatin 80 mg tablet 80 mg PO QHS warfarin 2 mg tablet 2 mg PO DAILY Rx Instructions: Pt takes 2mg everyday except for Wednesdays she takes 1 mg fluticasone propionate 50 mcg/actuation spray,suspension 2 spray INTRANASAL DAILY PRN (Reason: nasal congestion) glimepiride 2 mg tablet 2 mg PO DAILY tizanidine 4 mg tablet 4 mg PO QHS PRN PRN (Reason: muscle spasm) losartan 50 mg Tablet 50 mg PO DINNER 30 Days Qty: 30 2RF furosemide 40 mg Tablet 40 mg PO BIDLX 30 Days Qty: 60 2RF metoprolol succinate 50 mg tablet extended release 24 hr 50 mg PO DAILY 30 Days Qty: 30 2RF spironolactone 25 mg tablet 12.5 mg PO DAILY Qty: 30 2RF Rx Instructions: Hold for serum potassium more than 5.0 Primary Care Provider: Kendra Lucio Referrals: Eugene Blanca DPM [Med Staff - Active Staff] - As soon as possible Activity Restrictions/Additional Instructions: Make sure you are taking a probiotic and/or eating yogurt at least twice daily in order to decrease your risk of antibiotic associated diarrhea and C. difficile. Print Language: Vietnamese Disposition Disposition: Home, Self Care
[2024-01-13 14:13] LABS: International Normalized Ratio 2.6; Prothrombin Time (Protime)PT. 27.5 SECONDS (11.7-14.9)
[2024-01-13 14:19] LABS: Erythrocyte Sedimentation Rate 8 mm/hr (0-30)
[2024-01-13 14:21] LABS: Absolute Lymphocyte Count 1.72 X10^3/uL (0.83-4.51); Absolute Neutrophil Count 4.4 X10^3/uL (2.0-7.7); Basophil# 0.06 X10^3/uL; Basophil% 0.9 % (0-1); Eosinophils% 2.9 % (0-5); Hematocrit 36.9 % (37-47); Hemoglobin 11.4 g/dL (12.0-15.0); Lymphocyte # 1.72 X10^3/ul (0.83-4.51); Lymphocyte % 24.6 % (19-41); Mean Corp Hgb Conc 30.9 g/dL (32-36); Mean Corpuscular Hgb 30.9 pg (27.0-32.0); Mean Platelet Vol. 11.4 fl (6.2-12.0); Monocyte# 0.61 X10^3/uL; Monocyte% 8.7 % (0-10); NRBC Flagged by Analyzer 0.4 % (0-5); Neutrophil # 4.38 X10^3/uL (2.7-7.7); Neutrophil % 62.6 % (47-70); Platelet Count 294 K/mm3 (150-450); RBC Distribution Width CV 16.4 % (11.6-14.6); RBC Distribution Width SD 59.6 fl (35.1-43.9); Red Blood Count 3.69 M/mm3 (4.2-5.4)
[2024-01-13 14:33] LABS: Anion Gap 6 (5-15); BUN 20 mg/dL (7-18); BUN/Creat Ratio 20.4 RATIO (10-20); CRP 4.74 mg/L (0.0-3.0); Calcium,Total 9.9 mg/dL (8.5-10.1); Chloride 106 mmol/L (98-107); Creatinine, Serum 0.98 mg/dL (0.55-1.02); EST Glomerular Filtration Rate 58 mL/min (>60); Est Glom Filt Rate - Afr Amer 70 mL/min (>60); Estimated Creatinine Clearance 39.73 ml/min; Glucose 130 mg/dL (74-106); Potassium 3.6 mmol/L (3.5-5.1); Sodium Level 138 mmol/L (136-145)
[2024-01-13] MEDS: HYDROcodone Bitartrate/Apap 5/325 Tablet PO (14:50)
[2024-01-13] MEDS: Cephalexin 250 MG Capsule 500 MG PO (14:50)
[2024-01-13 14:54] VITALS: BP 153/74; PULSE 58; RESP 16; O2SAT 99
== END 2024-01-13 14:55 | disposition home or self-care (01) ==
LOC: ED 14:53
PROVIDERS: Emergency Provider Emergency Medicine; PCP Internal Medicine; Visit Provider Emergency Medicine
DX: L03.115 Cellulitis of right lower limb (principal); I50.9 Heart failure, unspecified; I48.91 Unspecified atrial fibrillation; R79.1 Abnormal coagulation profile; T45.515A Adverse effect of anticoagulants, initial encounter; M79.661 Pain in right lower leg; M79.671 Pain in right foot; Z79.01 Long term (current) use of anticoagulants; Z79.84 Long term (current) use of oral hypoglycemic drugs; Z79.899 Other long term (current) drug therapy; Z86.19 Personal history of other infectious and parasitic diseases; Z86.73 Personal history of transient ischemic attack (TIA), and cerebral infarction without residual deficits
CPT/HCPCS: 36415; 73630; 80048; 85025; 85610; 85652; 86140; 93971; 99283

== ENCOUNTER 2024-01-18 10:02 | Inpatient (IN) | payer MEDICARE, SELFPAY ==
[2024-01-18] VITALS (7 sets, daily range): BP systolic 96–145; BP diastolic 75–105; PULSE 61–104; RESP 16–18; TEMP 36.4–36.6; O2SAT 95–98; BMI 26.6; BMI 25.7
--- NOTE | 2024-01-18 10:22 | EKG12_ITS ---
Test Reason : GENERAL Blood Pressure : / mmHG Vent. Rate : 099 BPM Atrial Rate : 000 BPM P-R Int : 000 ms QRS Dur : 086 ms QT Int : 444 ms P-R-T Axes : 000 -63 166 degrees QTc Int : 569 ms Critical Test Result: Long QTc Atrial fibrillation Left axis deviation Minimal voltage criteria for LVH, may be normal variant ( Sam product ) Inferior infarct , age undetermined Anteroseptal infarct , age undetermined T wave abnormality, consider lateral ischemia Prolonged QT Abnormal ECG Confirmed by Roly Herrera ([id number]), marketing editor ARELY SHORT ([id number]) on 01/23/2024 10:21:31 AM Referred By: Confirmed By:Roly Herrera
[2024-01-18] MEDS: Ondansetron 4 MG/2 ML Vial IV (10:37)
[2024-01-18] MEDS: HYDROmorphone 1 MG/ML Syringe 0.5 MG IV (10:37)
[2024-01-18 10:43] LABS: Absolute Lymphocyte Count 1.44 X10^3/uL (0.83-4.51); Absolute Neutrophil Count 6.6 X10^3/uL (2.0-7.7); Basophil# 0.04 X10^3/uL; Basophil% 0.4 % (0-1); Eosinophils% 1.1 % (0-5); Hemoglobin 12.3 g/dL (12.0-15.0); Lymphocyte # 1.44 X10^3/ul (0.83-4.51); Lymphocyte % 16.1 % (19-41); Mean Corp Hgb Conc 31.5 g/dL (32-36); Mean Corpuscular Hgb 31.1 pg (27.0-32.0); Mean Corpuscular Volume 98.5 fL (81-99); Mean Platelet Vol. 10.5 fl (6.2-12.0); Monocyte# 0.76 X10^3/uL; Monocyte% 8.5 % (0-10); NRBC Flagged by Analyzer 0 % (0-5); Neutrophil # 6.59 X10^3/uL (2.7-7.7); Neutrophil % 73.7 % (47-70); Platelet Count 282 K/mm3 (150-450); RBC Distribution Width CV 16.1 % (11.6-14.6); RBC Distribution Width SD 59.4 fl (35.1-43.9); Red Blood Count 3.96 M/mm3 (4.2-5.4)
[2024-01-18 10:50] LABS: Anion Gap 12 (5-15); BUN 19 mg/dL (7-18); BUN/Creat Ratio 18.4 RATIO (10-20); Calcium,Total 10.3 mg/dL (8.5-10.1); Chloride 105 mmol/L (98-107); Creatinine, Serum 1.03 mg/dL (0.55-1.02); EST Glomerular Filtration Rate 54 mL/min (>60); Est Glom Filt Rate - Afr Amer 66 mL/min (>60); Estimated Creatinine Clearance 37.69 ml/min; Glucose 169 mg/dL (74-106); Potassium 3.5 mmol/L (3.5-5.1); Sodium Level 139 mmol/L (136-145)
[2024-01-18 10:54] LABS: International Normalized Ratio 2.9; Prothrombin Time (Protime)PT. 30.1 SECONDS (11.7-14.9)
--- NOTE | 2024-01-18 11:00 | CT_ITS ---
STUDY: CTA OF THE ABDOMINAL AORTA AND BILATERAL LOWER EXTREMITIES REASON FOR EXAM: Female, 83 years old. Ischemic right foot RADIATION DOSAGE (If Supplied By Facility): CTDIvol = ( 7.95 ) mGy, DLP = ( 986.53 ) mGycm TECHNIQUE: Axial CT angiography multi-detector data acquisition was obtained from the dome of the liver to the level of the ankles following intravenous administration of 100 ML ISOVUE 370. Axial images and MIP images were reconstructed from the axial data set. Post-processing of the angiographic images was performed, with multiplanar reformation and 3D reconstruction. Individualized dose optimization techniques were used for this CT. TECHNICAL QUALITY: Good COMPARISON: None. Descriptors of Narrowing: None (0%) Mild (< 50%) Moderate (50-70%) Severe (70-90%) Subtotal/Total Occlusion (90-100%) Non-Evaluable (technically non-diagnostic FINDINGS: Mild degree of increased markings at the lung bases suggest some bibasilar atelectasis and/or scarring. Fatty infiltration of the liver. Small hiatal hernia. Questionable small gallstones along the dependent portion of the gallbladder lumen. Sigmoid diverticulosis. Abdominal aorta: Atherosclerotic plaque formation of the abdominal aorta. No aneurysm is seen. Celiac and superior mesenteric arteries: Mild nonstenotic plaque at the origin of the superior mesenteric artery. Inferior mesenteric artery: No demonstrated narrowing. Right renal artery(arteries): Nonstenotic plaque at the origin of the right renal artery. Left renal artery(arteries): No demonstrated narrowing. Right common iliac artery: Nonstenotic plaques. Right external iliac artery: Nonstenotic plaques. Right internal iliac artery: No demonstrated narrowing. Left common iliac artery: Nonstenotic plaques. Left external iliac artery: No demonstrated narrowing. Left internal iliac artery: Nonstenotic plaques. RIGHT LOWER EXTREMITY Right common femoral artery: Calcific plaque with mild stenosis. Right profundus femoris: No demonstrated narrowing. Right superficial femoral: Scattered calcific plaques throughout the course of the superficial femoral artery without focal stenosis. Right popliteal artery: No demonstrated narrowing. Right tibioperoneal trunk: No demonstrated narrowing. Right anterior tibial artery: Nonvisualization. Right posterior tibial artery: Patent although there are multiple areas of calcific plaques with stenosis throughout its course. Right peroneal artery: Multiple calcific plaques with scattered stenoses. LEFT LOWER EXTREMITY Left common femoral artery: No demonstrated narrowing. Left profundus femoris: No demonstrated narrowing. Left superficial femoral: Mildly stenotic calcific vascular course. Left popliteal artery: No demonstrated narrowing. Left tibioperoneal trunk: No demonstrated narrowing. Left anterior tibial artery: Nonvisualization. Left posterior tibial artery: Patent although multiple focal areas of bright stenoses due to calcific plaques. Left peroneal artery: Multiple areas of tight stenoses with the poor visualization of the distal portion. CT/CTA Abd w/Runoff W/WO Contrast IMPRESSION: Two-vessel runoff in both lower extremities as described. Electronically Signed: Luciano Senior MD at 12:30 EDT ,
--- NOTE | 2024-01-18 11:17 | EX.ED.DYSGE1 ---
HPI History of Present Illness Chief Complaint: Lower Extremity Injury Detail of Chief Complaint: Painful right foot Informant: patient and other (Dr. Eugene Blanca, the head paper tester, called prior to patient's arrival. He saw her in his office.) Onset/Context/Timing Onset: Days Context: Sudden Onset Timing: Continuous Quality: Pain and discoloration of the right foot Location: Right foot and toes Current Severity: Moderate Maximum Severity: Severe Worsened by: Light touch Relieved by: Nothing Associated Symptoms Associated Symptoms: Tingling Narrative Narrative: Patient 83-year-old woman who was sent from Drs. Blanca's office because of concern for an ischemic right lower extremity. She was seen on January 12 and diagnosed with cellulitis. He was seeing her in follow-up. She complains of tingling and pain for the past couple of days. Patient endorsed symptoms of claudication for a couple of weeks. Patient denies fever, chills night sweats. Patient has respiratory or cardiac symptoms. Patient is on Coumadin for chronic atrial fibrillation. The pain did not start abruptly. There is no history of trauma. Patient states she has had blisters formed since she was seen on Tuesday. Prior similar symptoms: No Recent Illness/Hospitalization: Yes [facility] Medical History Atrial fibrillation Factor V Leiden Anxiety Anemia Hypokalemia Acute hypoxemic respiratory failure CHF (congestive heart failure) Home Medications ?Medication ?Instructions ?Recorded ?Last Taken ?Type omeprazole 20 mg capsule,delayed 20 mg PO DAILY reflux 09/23/23 12/31/23 History release oxybutynin chloride 10 mg 10 mg PO DAILY bladder 09/23/23 12/31/23 History tablet,extended release 24 hr simvastatin 80 mg tablet 80 mg PO QHS cholesterol 09/23/23 12/31/23 History warfarin 2 mg tablet 2 mg PO DAILY blood thinner 09/23/23 12/31/23 History fluticasone propionate 50 2 spray intranasal DAILY PRN nasal 12/31/23 12/31/23 History mcg/actuation nasal congestion spray,suspension glimepiride 2 mg tablet 2 mg PO DAILY dm 12/31/23 Unknown History tizanidine 4 mg tablet 4 mg PO QHS PRN PRN muscle spasm 12/31/23 Unknown History furosemide 40 mg tablet 40 mg PO BIDLX 30 days #60 tabs 01/03/24 Unknown Rx losartan 50 mg tablet 50 mg PO DINNER 30 days #30 tabs 01/03/24 Unknown Rx metoprolol succinate 50 mg 50 mg PO DAILY 1 month #30 tabs 01/03/24 Unknown Rx tablet,extended release 24 hr spironolactone 25 mg tablet 12.5 mg (1/2 x 25 mg) PO DAILY #30 01/03/24 Unknown Rx tabs cephalexin 500 mg capsule 500 mg PO Q6 #40 CAPSULES 01/13/24 Unknown Rx Allergy/AdvReac Type Severity Reaction Status Date / Time benazepril (From Lotensin) Allergy Mild DOESNT Verified 01/18/24 10:03 REMEMBER quinapril (From Accupril) Allergy Mild UNKNOWN Verified 01/18/24 10:03 Sulfa (Sulfonamide Allergy Mild Hives Verified 01/18/24 10:03 Antibiotics) verapamil (From Calan) Allergy Mild UNKNOWN Verified 01/18/24 10:03 Surgical History S/P carotid endarterectomy Social History Smoking Status: Never smoker ROS ROS ED Constitutional Constitutional ED: Denies chills, fever(s), subjective, sweats or weight loss Eyes Eyes: Denies blurry vision or change in vision Cardiovascular Cardiovascular: Denies chest pain or palpitations Respiratory/Chest Respiratory/Chest: Denies cough, dyspnea or dyspnea on exertion Gastrointestinal Gastrointestinal: Denies abdominal pain, melena, nausea or vomiting Musculoskeletal Musculoskeletal: Denies back pain or neck pain Integumentary Reports rash and other Details: Discoloration of the right foot with blisters Neurologic Neurologic: Reports paresthesias; Denies headache(s) Psychiatric Psychiatric: Denies anxiety Hematologic/Lymphatic Hematologic/Lymphatic: Reports easy bruising EXAM Physical Exam Const Vital Signs: 01/18/24 10:03 01/18/24 10:40 Temperature 97.6 F L 97.8 F Temperature Source Temporal Oral Pulse Rate 104 H 95 Respiratory Rate 18 18 Blood Pressure 145/105 H 135/75 H Blood Pressure Mean 118 95 Pulse Ox 98 98 Oxygen Delivery Method Room Air Room Air Positive well nourished and well developed Constitutional Narrative: Patient appears uncomfortable. She voices her discomfort and pain. General Appearance ED: well developed; Negative for cyanotic or diaphoretic HEENT Reports moist mucous membranes HEENT Narrative: Head is atraumatic, cephalic. Eyes PERRL and EOMs intact bilaterally General Eye ED: Negative for pale conjunctiva or scleral icterus Neck no lymphadenopathy, supple and no JVD Resp normal respiratory effort and clear to auscultation bilaterally Cardio regular rate, S1 normal heart sound, S2 normal heart sound and no murmurs Rhythm: abnormal rhythm irregularly irregular GI normal to inspection, nondistended, normoactive bowel sounds, non-tender, non-distended and no masses; Negative for hepatosplenomegaly GI Narrative: There is no palpable pulsatile mass. There is no abdominal bruit. Back/Spine no CVA tenderness Extremity Negative for normal to inspection Extremity Narrative: Patient has a rubor appearing right foot with blisters. There is no palpable DP or PT pulse on either side. There is no flow noted right DP. Very faint monophasic flow right PT. Flow noted left. Biphasic PT monophasic DP. Patient's foot becomes pale with elevation. Patient has significant pain to light touch. There is decreased movement of her toes. There may be a slight temperature difference between the right and left foot. Neuro oriented x3, CN's II-XII intact bilaterally and No no sensory deficits noted Psych mental status grossly normal Skin No no rashes or lesions noted and No no wounds Skin Narrative: Described under the extremity portion of the EMR MDM MDM MDM Narrative Medical decision making narrative: Patient has ischemic right foot. Dr. Rojas was contacted. Dr. Rojas was made aware of history physical. She does have history A-fib on Coumadin. He requested heparin drip without bolus. He also requested CT a of the aorta with runoffs. He will see patient in the emergency department. She will need to be admitted. Lab Data Attestation: I reviewed the patient's lab results. Lab results narrative: White count is unremarkable. PT and INR are 38.1 and 2.9. Electrolyte panel for slight elevation of creatinine at 1.03 with estimated GFR 54. Glucose is elevated 169 with normal CO2 anion gap. Labs: Laboratory Results - last 24 hr 01/18/24 01/18/24 10:30 10:50 WBC 9.0 RBC 3.96 L Hgb 12.3 Hct 39.0 MCV 98.5 MCH 31.1 MCHC 31.5 L RDW Std Deviation 59.4 H RDW Coeff of Kate 16.1 H Plt Count 282 MPV 10.5 Immature Gran % (Auto) 0.200 Neut % (Auto) 73.7 H Lymph % (Auto) 16.1 L [place] % (Auto) 8.5 Eos % (Auto) 1.1 Baso % (Auto) 0.4 Absolute Neuts (auto) 6.6 Absolute Lymphs (auto) 1.44 Nucleated RBC % 0 PT 30.1 H INR 2.9 APTT 62.2 H Sodium 139 Potassium 3.5 Chloride 105 Carbon Dioxide 22.0 Anion Gap 12 BUN 19 H Creatinine 1.03 H Estim Creat Clear Calc 37.69 Est GFR (MDRD) Af Amer 66 Est GFR (MDRD) Non-Af 54 L BUN/Creatinine Ratio 18.4 Glucose 169 H Calcium 10.3 H Management Discussion w/another healthcare provider: Hospitalist (Hospitalist was paged for admission for ischemic right lower extremity) and Study Director (Secondary was asked to contact Dr. Rojas so he can review the CTA and speak with patient) Critical Care Time Critical Care Time: Yes Critical care time (excluding procedures): 30-74 minutes (31), Including time spent: (History, physical, documentation, discussion with podiatry, discussion with Dr. Rojas independent interpretation of laboratory results), Discussing w/Patient &/or Family/[place] Line Attendant, Discussing w/Consultants (Dr. Blanca and Dr. Rojas) and Arranging Admission or Transfer (Dr. Hinton for admission) Discharge Plan Dx/Rx/DC Orders Clinical Impression: Ischemic pain of right foot, Factor V Leiden, Chronic a-fib, Anticoagulant long-term use, Elevated serum creatinine, Elevated blood pressure reading without diagnosis of hypertension Disposition Disposition: Acute Care Hospital [facility]
[2024-01-18] MEDS: HEPARIN/D5w 25,000 UNITS 25,000 UNITS/250 ML IV.SOLN. 10 UNITS CONT INF (11:18)
--- NOTE | 2024-01-18 11:20 | ED.RN ---
pulled bolus from accudose. spoke with MD, no bolus- just continuous infusion. opened so cannot return heparin vile.
[2024-01-18 11:24] LABS: Partial Thromboplast Time 62.2 Seconds (24.1-36.2)
--- NOTE | 2024-01-18 12:03 | HP.PCM.HOS_ITS ---
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 She had been seen a few days ago and thought to have cellulitis. She was diagnosed with cellulitis and discharged on antibiotics. She however kept having tingling and pain in her right foot for a few days after. She had pain that worsened with ambulation in her right foot. She denied any fever, chills, trauma to her foot, nausea or vomiting. Review of systems is otherwise negative. Vitals in the ED were blood pressure of 135/75, pulse rate of 95, respirate rate of 18 and temperature of 91.8 Fahrenheit. She was saturating at 98% on room air. Labs showed hemoglobin of 12.3 with WBC of 9 and platelets of 282. INR was 2.9; she is on Coumadin. Chemistry showed sodium of 139 with potassium of 3.5 and bicarb of 22. Creatinine is 1.03. Vascular surgery was consulted by ED doctor and vascular surgery requested CTA of the abdomen and pelvis with runoff. This has been done and read is pending. She has been admitted to be managed for acute limb ischemia of the right lower extremity. She was started on heparin drip without bolus in the ED. [facility] Medical History Atrial fibrillation Factor V Leiden Anxiety Anemia Hypokalemia Acute hypoxemic respiratory failure CHF (congestive heart failure) Home Medications ?Medication ?Instructions ?Recorded ?Last Taken ?Type omeprazole 20 mg capsule,delayed 20 mg PO DAILY reflux 09/23/23 12/31/23 History release oxybutynin chloride 10 mg 10 mg PO DAILY bladder 09/23/23 12/31/23 History tablet,extended release 24 hr simvastatin 80 mg tablet 80 mg PO QHS cholesterol 09/23/23 12/31/23 History warfarin 2 mg tablet 2 mg PO DAILY blood thinner 09/23/23 12/31/23 History fluticasone propionate 50 2 spray intranasal DAILY PRN nasal 12/31/23 12/31/23 History mcg/actuation nasal congestion spray,suspension glimepiride 2 mg tablet 2 mg PO DAILY dm 12/31/23 Unknown History tizanidine 4 mg tablet 4 mg PO QHS PRN PRN muscle spasm 12/31/23 Unknown History furosemide 40 mg tablet 40 mg PO BIDLX 30 days #60 tabs 01/03/24 Unknown Rx losartan 50 mg tablet 50 mg PO DINNER 30 days #30 tabs 01/03/24 Unknown Rx metoprolol succinate 50 mg 50 mg PO DAILY 1 month #30 tabs 01/03/24 Unknown Rx tablet,extended release 24 hr spironolactone 25 mg tablet 12.5 mg (1/2 x 25 mg) PO DAILY #30 01/03/24 Unknown Rx tabs cephalexin 500 mg capsule 500 mg PO Q6 #40 CAPSULES 01/13/24 Unknown Rx Allergy/AdvReac Type Severity Reaction Status Date / Time benazepril (From Lotensin) Allergy Mild DOESNT Verified 01/18/24 10:03 REMEMBER quinapril (From Accupril) Allergy Mild UNKNOWN Verified 01/18/24 10:03 Sulfa (Sulfonamide Allergy Mild Hives Verified 01/18/24 10:03 Antibiotics) verapamil (From Calan) Allergy Mild UNKNOWN Verified 01/18/24 10:03 Surgical History S/P carotid endarterectomy Social History Smoking Status: Never smoker ROS Constitutional Constitutional: Denies anorexia, chills, fatigue, fever(s), malaise or weakness Eyes Eyes: Denies change in vision ENT HEENT: Denies dysphagia, headache(s), nasal congestion or nasal discharge Cardiovascular Cardiovascular: Denies chest pain, dyspnea on exertion, edema, lightheadedness, orthopnea, palpitations, paroxysmal nocturnal dyspnea or rapid heart rate Respiratory/Chest Respiratory/Chest: Denies cough, dyspnea, shortness of breath at rest, shortness of breath with exertion or wheezing Gastrointestinal Gastrointestinal: Denies abdominal pain, coffee ground emesis or diarrhea Genitourinary Genitourinary: Denies burning urination, difficulty urinating or dysuria Musculoskeletal Musculoskeletal: Reports joint pain; Denies arthralgias, back pain or joint swelling Neurologic Neurologic: Denies confusion, dizziness, focal weakness, headache(s), numbness or paresthesias Psychiatric Psychiatric: Denies anxiety or depression Endocrine Endocrinology: Denies change in body appearance Vital Signs Vital Signs Vital Signs: 01/18/24 10:03 01/18/24 10:40 Temperature 97.6 F L 97.8 F Temperature Source Temporal Oral Pulse Rate 104 H 95 Respiratory Rate 18 18 Blood Pressure 145/105 H 135/75 H Blood Pressure Mean 118 95 Pulse Ox 98 98 Oxygen Delivery Method Room Air Room Air Weight Weight: 150 lb 5.684 oz Body Mass Index (BMI) 26.6 Physical Exam Const alert, oriented x3, no apparent distress and average body habitus General Appearance: cooperative HEENT normocephalic, head/scalp atraumatic, hearing grossly normal bilaterally, moist oral mucous membranes and oropharynx normal Mouth: oral and palatal mucosa normal Eyes PERRL, EOMs intact bilaterally and conjunctivae normal Neck no lymphadenopathy and supple Resp no retractions, no use of accessory muscles and clear to auscultation bilaterally Cardio regular rate, regular rhythm, S1 normal heart sound, S2 normal heart sound and no murmurs GI normal to inspection, nondistended, normoactive bowel sounds, soft to palpation, non-tender and non-distended Extremity Extremity Narrative: Right foot is erythematous, very cold and tender to touch, markedly diminshed peripehral pulses Neuro oriented x3, CN's II-XII intact bilaterally, moves all extremities and no focal motor deficits Sensorium / Orientation: awake and alert Psych affect normal Results Lab / Micro Data 01/18/24 10:30 01/18/24 10:30 Labs: Laboratory Results - last 24 hr 01/18/24 10:30: WBC 9.0, RBC 3.96 L, Hgb 12.3, Hct 39.0, MCV 98.5, MCH 31.1, M CHC 31.5 L, RDW Std Deviation 59.4 H, RDW Coeff of Kate 16.1 H, Plt Count 282, MPV 10.5, Immature Gran % (Auto) 0.200, Neut % (Auto) 73.7 H, Lymph % (Auto) 16.1 L, [place] % (Auto) 8.5, Eos % (Auto) 1.1, Baso % (Auto) 0.4, Absolute Neuts (auto) 6.6, Absolute Lymphs (auto) 1.44, Nucleated RBC % 0, PT 30.1 H, INR 2.9, Sodium 139, Potassium 3.5, Chloride 105, Carbon Dioxide 22.0, Anion Gap 12, BUN 19 H, Creatinine 1.03 H, Estim Creat Clear Calc 37.69, Est GFR (MDRD) Af Amer 66, Est GFR (MDRD) Non-Af 54 L, BUN/Creatinine Ratio 18.4, Glucose 169 H, C alcium 10.3 H 01/18/24 10:50: APTT 62.2 H Assessment & Plan Assessment/Plan (1) Acute pain of right lower extremity: (2) Ischemic pain of right foot: PLAN: Plan #Acute limb ischemia of the RLE * Admit to PCU. Came in complaining of pain in her right foot. * She had been seen in the ED on 12 January and treated for cellulitis of the right lower extremity. However his symptoms of redness and swelling as well as pain in the right lower extremity had persisted * He was on Coumadin. Started on heparin drip without bolus in the ED. * CTA of the abdomen and pelvis with runoff ordered in the ED and shows short segment right popliteal occlusion with extensive calcification with soft/acute appearance and suspect that his in situ thrombosis. * vascular surgery consulted. For angiogram during the week, per vascular surgery. * * #History of factor V Leiden deficiency * On Coumadin due to history of blood clots. Now on heparin drip. Coumadin on hold. Per vascular surgery to allow elevated INR to trend down on its own. * #Hypertension: on losartan and metoprolol as well as spironolactone. IV hydralazine prn #HFrEF: * on lasix, metoprool, spironolactone and losartan. * Has known EF of 35-40% per echo done 01/02/2024. * It also showed moderate left ventricular systolic dysfunction with segmental wall motion with small pericardial effusion. * not in exacerbation #Hyperlipidemia: on statin DVT prophylaxis: heparin drip Code status: Full code * Patient counseled extensively about different types of CODE STATUS including full code, DNR CCA and DNR CCA. Patient elects to be full code. Total [id number] time: 17 minutes. Charges/Coding Visit Charges Inpatient E&M: 22336 Init Hosp L3 Procedures Hospitalists Procedures: 24912 Advncd Care Plan 30 Min
--- NOTE | 2024-01-18 13:46 | NURSING ---
Emergency documentation in effect. Pt admitted 01/18/24 9251
--- NOTE | 2024-01-18 14:14 | CON.PCM.SX_ITS ---
Assessment & Plan Assessment/Plan (1) Ischemic pain of right foot: PLAN: -CTA images reviewed, short segment right popliteal occlusion with mixed dense calcification with soft/acute appearance -suspect that in-situ thrombosis occurred in part due to relative dehydration and sub-therapeutic INR -hopefully able to treat with endovascular approach; if able to cross then assess chronicity of occlusion, thrombectomy vs atherectomy vs both -with hypercoagulable state would not actively reverse INR; cont heparin and allow INR to normalize -patient requests anesthesia for procedure HPI Consult Data Date of Consult: 01/18/24 HPI Narrative HPI Narrative: JAROD PRITCHARD, is a 83 F who presents with right foot pain, discoloration, bullae that began end of last week. She presented to ED at that time and it was felt to be cellulitis so she was discharged with antibiotics. Her foot pain has continued since that time, worse with elevation, better when dangling. She was seen in podiatry office today and sent to ED for suspected ischemia. Prior to her new rest pain she had new right calf claudication that began after recent admission for diuresis with new hear failure diagnosis. She has history of factor V leiden, though no personal thrombotic events. Has been on coumadin for about 20 years without issue. Her INR today is 2.9 but it appears as if her INR was briefly sub-therapeutic during the admission for heart failure. [facility]LY [facility] Medical History Atrial fibrillation Factor V Leiden Anxiety Anemia Hypokalemia Acute hypoxemic respiratory failure CHF (congestive heart failure) Home Medications ?Medication ?Instructions ?Recorded ?Last Taken ?Type omeprazole 20 mg capsule,delayed 20 mg PO DAILY reflux 09/23/23 12/31/23 History release oxybutynin chloride 10 mg 10 mg PO DAILY bladder 09/23/23 12/31/23 History tablet,extended release 24 hr simvastatin 80 mg tablet 80 mg PO QHS cholesterol 09/23/23 12/31/23 History warfarin 2 mg tablet 2 mg PO DAILY blood thinner 09/23/23 12/31/23 History fluticasone propionate 50 2 spray intranasal DAILY PRN nasal 12/31/23 12/31/23 History mcg/actuation nasal congestion spray,suspension glimepiride 2 mg tablet 2 mg PO DAILY dm 12/31/23 Unknown History tizanidine 4 mg tablet 4 mg PO QHS PRN PRN muscle spasm 12/31/23 Unknown History furosemide 40 mg tablet 40 mg PO BIDLX 30 days #60 tabs 01/03/24 Unknown Rx losartan 50 mg tablet 50 mg PO DINNER 30 days #30 tabs 01/03/24 Unknown Rx metoprolol succinate 50 mg 50 mg PO DAILY 1 month #30 tabs 01/03/24 Unknown Rx tablet,extended release 24 hr spironolactone 25 mg tablet 12.5 mg (1/2 x 25 mg) PO DAILY #30 01/03/24 Unknown Rx tabs cephalexin 500 mg capsule 500 mg PO Q6 #40 CAPSULES 01/13/24 Unknown Rx Allergy/AdvReac Type Severity Reaction Status Date / Time benazepril (From Lotensin) Allergy Mild DOESNT Verified 01/18/24 10:03 REMEMBER quinapril (From Accupril) Allergy Mild UNKNOWN Verified 01/18/24 10:03 Sulfa (Sulfonamide Allergy Mild Hives Verified 01/18/24 10:03 Antibiotics) verapamil (From Calan) Allergy Mild UNKNOWN Verified 01/18/24 10:03 Surgical History S/P carotid endarterectomy Social History Smoking Status: Never smoker ROS Constitutional Constitutional: Denies chills, fever(s), frequent falls, lethargy or weakness Eyes Eyes: Denies blind spots, change in vision or loss of vision ENT HEENT: Denies bleeding gums, hoarseness or sore throat Cardiovascular Cardiovascular: Reports erythema on extremities and other Details: right foot rest pain ; Denies abdominal pain, bluish discoloration of hand/feet, chest pain with activity, claudication, cold extremities, cyanosis, dyspnea on exertion, irregular heart rhythm, leg edema, leg ulcers, numbness in extremities or weakness in extremities Respiratory/Chest Respiratory/Chest: Denies cough, excessive phlegm production, shortness of breath at rest, shortness of breath with exertion or wheezing Gastrointestinal Gastrointestinal: Denies anorexia, change in stool character, constipation, diarrhea, melena or rectal bleeding Genitourinary Genitourinary: Denies dysuria or hematuria Musculoskeletal Musculoskeletal: Denies abnormal gait Integumentary Integumentary: Reports erythema and other Details: ; Denies non-healing lesions or wounds Neurologic Neurologic: Denies abnormal speech, focal weakness, headache(s), loss of vision, numbness, paresthesias or sensory deficit Hematologic/Lymphatic Hematologic/Lymphatic: Denies easy bleeding, easy bruising or lymphadenopathy Physical Exam Const alert, oriented x3, no apparent distress and healthy appearing General Appearance: cooperative; Negative for combative or lethargic Orientation / Consciousness: awake Exam Limitations: no limitations HEENT Head and Scalp: normocephalic and atraumatic Eyes EOMs intact bilaterally General Eye: normal appearance of both eyes Neck full ROM, no lymphadenopathy and thyroid normal General: trachea midline; Negative for lymphadenopathy or tenderness Thyroid: thyroid normal Resp normal respiratory effort and no use of accessory muscles Effort and Inspection: Negative for labored, stridor or audible wheezes Cardio regular rate and regular rhythm Peripheral Pulses: brachial pulses present, radial pulses present and femoral pulses present; Negative for posterior tibial pulses present or dorsalis pedis pulses present Back/Spine Cervical Spine: cervical ROM normal Extremity full ROM, normal capillary refill and no clubbing, cyanosis or edema Skin no rashes or lesions noted and no wounds Neuro oriented x3, CN's II-XII intact bilaterally, no focal motor deficits and no sensory deficits noted Psych thought process normal, cooperative, affect normal, speech normal and activity/motor behavior normal Lab / Micro Data 01/18/24 10:30 01/18/24 10:30 Labs: Laboratory Results - last 24 hr 01/18/24 10:30: WBC 9.0, RBC 3.96 L, Hgb 12.3, Hct 39.0, MCV 98.5, MCH 31.1, M CHC 31.5 L, RDW Std Deviation 59.4 H, RDW Coeff of Kate 16.1 H, Plt Count 282, MPV 10.5, Immature Gran % (Auto) 0.200, Neut % (Auto) 73.7 H, Lymph % (Auto) 16.1 L, [place] % (Auto) 8.5, Eos % (Auto) 1.1, Baso % (Auto) 0.4, Absolute Neuts (auto) 6.6, Absolute Lymphs (auto) 1.44, Nucleated RBC % 0, PT 30.1 H, INR 2.9, Sodium 139, Potassium 3.5, Chloride 105, Carbon Dioxide 22.0, Anion Gap 12, BUN 19 H, Creatinine 1.03 H, Estim Creat Clear Calc 37.69, Est GFR (MDRD) Af Amer 66, Est GFR (MDRD) Non-Af 54 L, BUN/Creatinine Ratio 18.4, Glucose 169 H, C alcium 10.3 H 01/18/24 10:50: APTT 62.2 H Imaging Radiology Impression Abdomen/Pelvis CTA 01/18/24 11:00 IMPRESSION: Two-vessel runoff in both lower extremities as described. Electronically Signed: Luciano Senior MD at 12:30 EDT , Charges/Coding Visit Charges Inpatient E&M: 64642 Init Hosp L3
[2024-01-18] MEDS: Losartan Potassium 50 MG Tablet PO (16:22)
[2024-01-18] MEDS: tiZANidine HCl 2 MG Tablet 4 MG PO (16:22)
[2024-01-18] MEDS: Furosemide 40 MG Tablet PO (17:59)
[2024-01-18] MEDS: Atorvastatin Calcium 40 MG Tablet PO (20:46)
[2024-01-18 21:23] LABS: Partial Thromboplast Time > 200.0 Seconds (24.1-36.2)
[2024-01-18] MEDS: oxyCODONE 5 MG Tablet PO (21:25)
[2024-01-18] MEDS: HYDROmorphone 1 MG/ML Syringe IV (23:07)
[2024-01-18] MEDS: 0.9% Saline Lock 10 ML Syringe IV ×2 (23:08→23:29)
[2024-01-19] VITALS (13 sets, daily range): BP systolic 108–165; BP diastolic 62–95; PULSE 68–117; RESP 16–19; TEMP 36.2–36.8; O2SAT 85–99; BMI 25.7
[2024-01-19] MEDS: HYDROmorphone 1 MG/ML Syringe IV ×3 (05:06→12:50)
[2024-01-19] MEDS: 0.9% Saline Lock 10 ML Syringe IV ×3 (05:10→12:51)
[2024-01-19 06:18] LABS: Absolute Lymphocyte Count 1.26 X10^3/uL (0.83-4.51); Absolute Neutrophil Count 4.4 X10^3/uL (2.0-7.7); Basophil# 0.06 X10^3/uL; Basophil% 0.9 % (0-1); Eosinophil# 0.11 X10^3/uL; Eosinophils% 1.7 % (0-5); Hematocrit 33.4 % (37-47); Hemoglobin 10.7 g/dL (12.0-15.0); Lymphocyte # 1.26 X10^3/ul (0.83-4.51); Lymphocyte % 19.3 % (19-41); Mean Corpuscular Hgb 31.9 pg (27.0-32.0); Mean Corpuscular Volume 99.7 fL (81-99); Monocyte# 0.71 X10^3/uL; Monocyte% 10.9 % (0-10); NRBC Flagged by Analyzer 0 % (0-5); Neutrophil # 4.38 X10^3/uL (2.7-7.7); Neutrophil % 66.9 % (47-70); Platelet Count 269 K/mm3 (150-450); RBC Distribution Width CV 16.3 % (11.6-14.6); RBC Distribution Width SD 59.8 fl (35.1-43.9); Red Blood Count 3.35 M/mm3 (4.2-5.4); White Blood Count 6.5 K/mm3 (4.4-11.0)
[2024-01-19 06:35] LABS: Partial Thromboplast Time 83.8 Seconds (24.1-36.2)
[2024-01-19 06:36] LABS: Anion Gap 7 (5-15); BUN 21 mg/dL (7-18); BUN/Creat Ratio 20.4 RATIO (10-20); Calcium,Total 9.2 mg/dL (8.5-10.1); Chloride 106 mmol/L (98-107); Creatinine, Serum 1.03 mg/dL (0.55-1.02); EST Glomerular Filtration Rate 54 mL/min (>60); Est Glom Filt Rate - Afr Amer 66 mL/min (>60); Estimated Creatinine Clearance 37.07 ml/min; Glucose 115 mg/dL (74-106); Potassium 3.7 mmol/L (3.5-5.1); Sodium Level 136 mmol/L (136-145)
[2024-01-19 08:58] LABS: International Normalized Ratio 2.6; Prothrombin Time (Protime)PT. 27.9 SECONDS (11.7-14.9)
[2024-01-19] MEDS: Glimepiride 2 MG Tablet PO (09:55)
[2024-01-19] MEDS: Tolterodine Tartrate 2 MG CAP.SA PO (09:59)
[2024-01-19] MEDS: Furosemide 40 MG Tablet PO (09:59)
[2024-01-19] MEDS: Pantoprazole Sodium 20 MG Tablet PO (09:59)
[2024-01-19] MEDS: Spironolactone 25 MG Tablet 12.5 MG PO (09:59)
[2024-01-19] MEDS: Metoprolol(XL)Succ 50 MG Tablet PO (09:59)
--- NOTE | 2024-01-19 10:55 | PN_ITS ---
Subjective Subjective Patient seen and examined. Still complains of pain in her right foot but states it is getting better. She has no other complaints and review of systems otherwise negative. She remains on heparin drip. She has remained hemodynamically stable. Objective Data Objective Data Vital Signs: Vital Signs Temp Pulse Resp BP Pulse Ox O2 Del Method 97.3 F L 68 18 125/62 H 92 Room Air 01/19/24 08:09 01/19/24 09:59 01/19/24 08:09 01/19/24 08:09 01/19/24 08:09 01/19/24 08:09 Oxygen Delivery Method Room Air Weight: 145 lb Body Mass Index (BMI) 25.7 Intake & Output: Intake and Output for Last 24 Hours 01/17/24 01/18/24 01/19/24 23:59 23:59 23:59 Intake Total 341 / 341 52.15 / 52.15 Output Total 500 / 500 Balance -159 / -159 52.15 / 52.15 Lab / Micro Data 01/19/24 05:22 01/19/24 05:22 Labs: Laboratory Results - last 24 hr 01/18/24 10:30: PT 30.1 H, INR 2.9 01/18/24 10:50: APTT 62.2 H 01/18/24 20:48: APTT > 200.0 H* 01/19/24 05:22: WBC 6.5, RBC 3.35 L, Hgb 10.7 L, Hct 33.4 L, MCV 99.7 H, MCH 31.9, MCHC 32.0, RDW Std Deviation 59.8 H, RDW Coeff of Kate 16.3 H, Plt Count 269, MPV 11.0, Immature Gran % (Auto) 0.300, Neut % (Auto) 66.9, Lymph % (Auto) 19.3, [place] % (Auto) 10.9 H, Eos % (Auto) 1.7, Baso % (Auto) 0.9, Absolute Neuts (auto) 4.4, Absolute Lymphs (auto) 1.26, Nucleated RBC % 0, PT 27.9 H, INR 2.6, APTT 83.8 H, Sodium 136, Potassium 3.7, Chloride 106, Carbon Dioxide 23.0, Anion Gap 7, BUN 21 H, Creatinine 1.03 H, Estim Creat Clear Calc 37.07, Est GFR (MDRD) Af Amer 66, Est GFR (MDRD) Non-Af 54 L, BUN/Creatinine Ratio 20.4 H, Glucose 115 H, Calcium 9.2 Radiography Diagnostic Testing: Radiology Impression Abdomen/Pelvis CTA 01/18/24 11:00 IMPRESSION: Two-vessel runoff in both lower extremities as described. Electronically Signed: Luciano Senior MD at 12:30 EDT , Physical Exam Const alert, oriented x3 and no apparent distress General Appearance: cooperative HEENT normocephalic, head/scalp atraumatic, hearing grossly normal bilaterally, moist oral mucous membranes and oropharynx normal Eyes PERRL, EOMs intact bilaterally and conjunctivae normal Neck no lymphadenopathy and supple Resp normal respiratory effort, normal air movement, no retractions, no use of accessory muscles and clear to auscultation bilaterally Cardio regular rate, regular rhythm, S1 normal heart sound, S2 normal heart sound and no murmurs GI normal to inspection, nondistended, normoactive bowel sounds, soft to palpation, non-tender and non-distended Extremity Extremity Narrative: Right foot remains erythematous, cold and tender to touch, markedly diminished peripheral pulses Neuro oriented x3, CN's II-XII intact bilaterally, moves all extremities and no focal motor deficits Sensorium / Orientation: awake and alert Psych affect normal Appearance: appropriate Assessment & Plan Assessment/Plan (1) Acute pain of right lower extremity: (2) Ischemic pain of right foot: PLAN: Plan #Acute limb ischemia of the RLE * still complains of pain in her right foot, though she says it is controlled by her IV and oral pain meds. * on heparin drip. * vascular surgery on board. * CTA of the abdomen and pelvis with runoff ordered in the ED and shows short segment right popliteal occlusion with extensive calcification with soft/acute appearance and suspect that his in situ thrombosis. * For angiogram during the week, per vascular surgery. * * #History of factor V Leiden deficiency * On Coumadin due to history of blood clots. * Now on heparin drip. Coumadin on hold. * Per vascular surgery to allow elevated INR to trend down on its own. INR was 2.9 on admission, now down to 2.6. * #Hypertension: on losartan and metoprolol as well as spironolactone. IV hydralazine prn #HFrEF: * on lasix, metoprolol, spironolactone and losartan. * Has known EF of 35-40% per echo done 01/02/2024. * It also showed moderate left ventricular systolic dysfunction with segmental wall motion with small pericardial effusion. * not in exacerbation #Hyperlipidemia: on statin DVT prophylaxis: heparin drip Code status: full code Charges/Coding Visit Charges Inpatient E&M: 27815 Subs Hosp L2
--- NOTE | 2024-01-19 12:49 | PN.SURG_ITS ---
Objective Data Objective Data Vital Signs: Vital Signs Temp Pulse Resp BP Pulse Ox O2 Del Method 97.3 F L 68 18 125/62 H 92 Room Air 01/19/24 08:09 01/19/24 09:59 01/19/24 08:09 01/19/24 08:09 01/19/24 08:09 01/19/24 10:00 Oxygen Delivery Method Room Air Weight: 145 lb Body Mass Index (BMI) 25.7 Intake & Output: Intake and Output for Last 24 Hours 01/17/24 01/18/24 01/19/24 23:59 23:59 23:59 Intake Total 341 / 341 172.15 / 172.15 Output Total 500 / 500 Balance -159 / -159 172.15 / 172.15 Lab / Micro Data 01/19/24 05:22 01/19/24 05:22 Labs: Laboratory Results - last 24 hr 01/18/24 20:48: APTT > 200.0 H* 01/19/24 05:22: WBC 6.5, RBC 3.35 L, Hgb 10.7 L, Hct 33.4 L, MCV 99.7 H, MCH 31.9, MCHC 32.0, RDW Std Deviation 59.8 H, RDW Coeff of Kate 16.3 H, Plt Count 269, MPV 11.0, Immature Gran % (Auto) 0.300, Neut % (Auto) 66.9, Lymph % (Auto) 19.3, [place] % (Auto) 10.9 H, Eos % (Auto) 1.7, Baso % (Auto) 0.9, Absolute Neuts (auto) 4.4, Absolute Lymphs (auto) 1.26, Nucleated RBC % 0, PT 27.9 H, INR 2.6, APTT 83.8 H, Sodium 136, Potassium 3.7, Chloride 106, Carbon Dioxide 23.0, Anion Gap 7, BUN 21 H, Creatinine 1.03 H, Estim Creat Clear Calc 37.07, Est GFR (MDRD) Af Amer 66, Est GFR (MDRD) Non-Af 54 L, BUN/Creatinine Ratio 20.4 H, Glucose 115 H, Calcium 9.2
[2024-01-19 13:13] LABS: Partial Thromboplast Time 83.7 Seconds (24.1-36.2)
--- NOTE | 2024-01-19 15:15 | CASEMGMT ---
[facility] chart review: Patient was admitted 12/30-01/03/24 for acute hypoxic resp failure and CHF exacerbation. See [facility] assessment from 01/03/24. Patient was discharge to home with new oxygen through [employer] at 2lpm with extertion, family support, and follow-up plans in place. Patient was seen in the ED on 01/13/24 for right foot pain, swelling, and redness and was diagnosed with cellulitis and discharged to home on Keflex. Patient returned to ED on 01/18/24 from diamond grader office and was admitted for right lower limb ischemia with Vascular consult. [facility] attempted to discus readmission and discharge planning with patient. Patient is currently out of room and in laboratory manager with vascular surgery. CM will follow-up with patient when available. CM will continue to follow this patient and plan for a safe discharge.
[2024-01-19 16:21] LABS: ACT Activated Clotting Time 305 sec (74-137)
--- NOTE | 2024-01-19 16:26 | PCM.PRE.AN2 ---
ASA Classification* ASA Classification ASA Classification: 4 and E (ischemic rt leg ) Assessment & Plan Anesthesia* Anesthesia Assessment Anesthesia Assessment: Discussed sedation and/or anesthesia options, risks, benefits, and alternatives with patient/parents/legal guardian/POA. Questions invited. The patient/parents/legal guardian/POA seems to understand and agrees to proceed with anesthesia plan. Reviewed the physical assessment, medical history, allergy history and patient home medications list prior to surgery/procedure/anesthetic and documented any changes. Performed airway and anesthesia risk assessments. Anesthesia Type Anesthesia Type: General Anesthesia Focused Assessment* Temperature: 97.3 F Pulse Rate: 68 Blood Pressure: 125/62 Respiratory Rate: 18 Pulse Ox: 92 Airway Assessment Mouth opens: >3 cm Mallampati Score: II Focused Labs Anesthesia Preop lab: CBC WBC 6.5 K/mm3 (4.4-11.0) 01/19/24 05:22 RBC 3.35 M/mm3 (4.2-5.4) L 01/19/24 05:22 Hgb 10.7 g/dL (12.0-15.0) L 01/19/24 05:22 Hct 33.4 % (37-47) L 01/19/24 05:22 Plt Count 269 K/mm3 (150-450) 01/19/24 05:22 CHEMISTRY Potassium 3.7 mmol/L (3.5-5.1) 01/19/24 05:22 Sodium 136 mmol/L (136-145) 01/19/24 05:22 Magnesium 1.6 mg/dL (1.6-2.6) 01/01/24 04:03 Phosphorus 4.0 mg/dL (2.5-4.9) 01/01/24 04:03 BUN 21 mg/dL (7-18) H 01/19/24 05:22 Creatinine 1.03 mg/dL (0.55-1.02) H 01/19/24 05:22 Glucose 115 mg/dL (74-106) H 01/19/24 05:22 POC Glucose 218 mg/dL (74-106) H 01/03/24 11:49 TSH 1.920 uIU/mL (0.358-3.740) 01/01/24 04:03 COAG PT 27.9 SECONDS (11.7-14.9) H 01/19/24 05:22 Pre-Assessment Diagnosis/Proposed Procedure Planned Operative Procedure(s): Right Fem-Pop bypass Anesthesia History 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 When Was Last Pacemaker Check QUESTION #4 FULL TEXT: You/Your Family Experience fever (hyperthermia) with Anesthesia Last Oral Intake Last Oral intake: Last Oral Intake NPO since Meds taken in AM with sips of water? Meds patient instructed to take am of surgery PONV PONV - industrial refrigeration mechanic: PONV - industrial refrigeration mechanic Female HX of Motion Sickness HX of N/V After Surgery Non-Smoker Duration of Surgery greater than 60 minutes Number of Risk Factors PONV Score Height & Weight Height & Weight: Anesthesia: Height & Weight Height 5 ft 3 in 01/18/24 13:23 Weight: 65.771 kg 01/18/24 13:23 Body Mass Index (BMI) 25.7 01/18/24 13:23 Respiratory Assessment Respiratory Assessment - industrial refrigeration mechanic: Respiratory Tract Infection Hx - industrial refrigeration mechanic Hx Respiratory Tract Infection STOP Sleep Apnea STOP Sleep Apnea - industrial refrigeration mechanic: STOP Sleep Apnea - industrial refrigeration mechanic Hx Hypertension Yes 01/18/24 13:41 Hx Sleep Apnea Yes 01/18/24 13:41 CPAP No 01/18/24 13:41 BIPAP No 01/18/24 13:41 Do you snore loudly (louder than talking or can be heard Do you often feel tired/ fatigued/ sleepy during daytime? Has anyone observed you stop breathing during sleep? STOP Results Positive 01/18/24 13:41 QUESTION #5 FULL TEXT : Do you snore loudly (louder than talking or can be heard through closed doors)? Tobacco Use History Tobacco Use History - industrial refrigeration mechanic: Tobacco Use History - industrial refrigeration mechanic Tobacco Use Smoking Status Never smoker 01/18/24 13:41 Hx Tobacco Use No 01/18/24 13:41 Years Smoking Packs Smoked per Day Smoking Cessation Date was within the last 15 years Hx Smoking Cessation Date Hx Smoking Cessation Counseling Hematologic Medial History Hematologic Hx - industrial refrigeration mechanic: Hematologic Medical Hx - diversity specialist Hx of Blood Transfusion No 01/18/24 13:41 Hx of Transfusion in last 3 No 01/18/24 13:41 Months Date of Last Transfusion (if within last 3 months) Ever experience any problems No 01/18/24 13:41 with transfusion(s)? Specify any problems Hx of Preganancy in last 3 No 01/18/24 13:41 Months Nurse Filling Out Transfusion [email or web address] 01/18/24 13:41 & Questions: Date: 01/18/24 01/18/24 13:41 Time: 13:44 01/18/24 13:41 Patient unable to answer at this time (ie. confused, unrespo /Reproduction History /Reproductive History - industrial refrigeration mechanic: /Reproductive Hx- industrial refrigeration mechanic Hx Now Gestational Age (in weeks): EDC: Hx Hx Para Hx Section SAB Active Medications Active Medications: Current Medications Generic Name Dose Route Start Last Admin Trade Name Freq PRN Reason Stop Dose Admin Atorvastatin Calcium 40 mg 01/18/24 22:00 01/18/24 20:46 Atorvastatin Calcium 40 Mg Tablet PO 40 mg QHS KAVYA Administration Fluticasone Propionate 2 spray 01/18/24 13:23 Fluticasone 0.05% 1 [place] Nasal.Sry NASAL DAILY PRN nasal congestion Furosemide 40 mg 01/18/24 18:00 01/19/24 09:59 Furosemide 40 Mg Tablet PO 40 mg BIDLX KAVYA Administration Protocol Glimepiride 2 mg 01/19/24 08:00 01/19/24 09:55 Glimepiride 2 Mg Tablet PO 2 mg DAILYCM KAVYA Administration Heparin Sodium (Porcine) 0 unit 01/18/24 11:10 Heparin Injection (Vial) 5,000 Unit/Ml Vial IV UD PRN dose adjustment Protocol Hydromorphone HCl 0.5 - 1 mg 01/18/24 16:09 01/19/24 12:50 Hydromorphone 1 Mg/Ml Syringe IV 1 mg Q3H PRN PRN Administration Pain Score 6-10 Heparin Sodium/Dextrose 25,000 units in 250 mls @ 10 mls/hr 01/18/24 11:00 01/19/24 13:46 CONT INF 0 units/hr .Q25H KAVYA 0 mls/hr Titration Protocol As Directed Lactated Ringer's 1,000 mls @ 15 mls/hr 01/19/24 16:30 IV .Q48H KAVYA Losartan Potassium 50 mg 01/18/24 17:00 01/18/24 16:22 Losartan Potassium 50 Mg Tablet PO 50 mg DINNER [facility] Administration Protocol Metoprolol Succinate 50 mg 01/19/24 10:00 01/19/24 09:59 Metoprolol(Xl)Succ 50 Mg Tablet PO 50 mg DAILY KAVYA Administration Protocol Nitroglycerin 0.4 mg 01/18/24 16:09 Nitroglycerin (Inpatient Use) 0.4 Mg Tab.Subl SL Q5M PRN CARDIAC/CHEST PAIN Ondansetron HCl 4 mg 01/18/24 16:09 Ondansetron 4 Mg/2 Ml Vial IV Q8H PRN PRN NAUSEA/VOMITING Oxycodone HCl 5 mg 01/18/24 16:09 01/18/24 21:25 Oxycodone 5 Mg Tablet PO 5 mg Q4H PRN PRN Administration Pain Score 4-10 Pantoprazole Sodium 20 mg 01/19/24 10:00 01/19/24 09:59 Pantoprazole Sodium 20 Mg Tablet PO 20 mg DAILY KAVYA Administration Sodium Chloride 10 - 40 ml 01/18/24 13:27 01/19/24 12:51 0.9% Saline Lock 10 Ml Syringe IV 10 ml UD PRN Administration SALINE FLUSH Spironolactone 12.5 mg 01/19/24 10:00 01/19/24 09:59 Spironolactone 25 Mg Tablet PO 12.5 mg DAILY KAVYA Administration Protocol Tizanidine HCl 4 mg 01/18/24 13:26 01/18/24 16:22 Tizanidine Hcl 2 Mg Tablet PO 4 mg QHS PRN PRN Administration muscle spasm Tolterodine Tartrate 2 mg 01/19/24 10:00 01/19/24 09:59 Tolterodine Tartrate 2 Mg Cap.Sa PO 2 mg DAILY KAVYA Administration [facility] Medical History Atrial fibrillation Factor V Leiden Anxiety Anemia Hypokalemia Acute hypoxemic respiratory failure CHF (congestive heart failure) Home Medications ?Medication ?Instructions ?Recorded ?Last Taken ?Type omeprazole 20 mg capsule,delayed 20 mg PO DAILY reflux 09/23/23 12/31/23 History release oxybutynin chloride 10 mg 10 mg PO DAILY bladder 09/23/23 12/31/23 History tablet,extended release 24 hr simvastatin 80 mg tablet 80 mg PO QHS cholesterol 09/23/23 12/31/23 History warfarin 2 mg tablet 2 mg PO DAILY blood thinner 09/23/23 12/31/23 History fluticasone propionate 50 2 spray intranasal DAILY PRN nasal 12/31/23 12/31/23 History mcg/actuation nasal congestion spray,suspension glimepiride 2 mg tablet 2 mg PO DAILY dm 12/31/23 Unknown History tizanidine 4 mg tablet 4 mg PO QHS PRN PRN muscle spasm 12/31/23 Unknown History furosemide 40 mg tablet 40 mg PO BIDLX 30 days #60 tabs 01/03/24 Unknown Rx losartan 50 mg tablet 50 mg PO DINNER 30 days #30 tabs 01/03/24 Unknown Rx metoprolol succinate 50 mg 50 mg PO DAILY 1 month #30 tabs 01/03/24 Unknown Rx tablet,extended release 24 hr spironolactone 25 mg tablet 12.5 mg (1/2 x 25 mg) PO DAILY #30 01/03/24 Unknown Rx tabs cephalexin 500 mg capsule 500 mg PO Q6 #40 CAPSULES 01/13/24 Unknown Rx Allergy/AdvReac Type Severity Reaction Status Date / Time benazepril (From Lotensin) Allergy Mild DOESNT Verified 01/18/24 10:03 REMEMBER quinapril (From Accupril) Allergy Mild UNKNOWN Verified 01/18/24 10:03 Sulfa (Sulfonamide Allergy Mild Hives Verified 01/18/24 10:03 Antibiotics) verapamil (From Calan) Allergy Mild UNKNOWN Verified 01/18/24 10:03 Surgical History S/P carotid endarterectomy Social History Smoking Status: Never smoker Review of Systems (Anesthesia) ROS Narrative System reviewed and no additional complaints, except as documented.
--- NOTE | 2024-01-19 16:30 | PCM.OPRPT ---
Report of Operation Date of Procedure: 01/19/24 Pre-Operative Diagnosis: right lower extremity acute ischemia, rest pain Post-Operative Diagnosis: same Surgery/Procedure Performed:: aortogram, RLE runoff Surgeon: Shaan Rojas Type of Anesthesia: General Estimated Blood Loss (mL): 5 Description of Procedure: HPI: Patient is an 83-year-old female with prolonged acute right lower extremity ischemia which initially began approximately 2 weeks prior. She ultimately had presented to the emergent department 1 week prior and was diagnosed with cellulitis and return to home. She then represented profound and apparent ischemia and imaging revealed popliteal occlusion with some acute appearing thrombus superimposed on densely calcified fixed plaque. The initial plan was for angiogram under general anesthetic per patient request however to the the patient's pain worsened, her foot became more mottled and cool, and we were no longer able to find Doppler signals. She is taken now emergently with simple conscious sedation for attempted treatment and foot salvage. Description procedure: Upon obtaining form consent and verification correct patient procedure site patient taken to the [facility] where she was positioned prepped and draped in usual fashion. Time was performed conscious sedation was administered with Versed and fentanyl. Skin overlying the left common femoral artery was Nestabs 1% lidocaine the vessel accessed under ultrasound guidance with a micropuncture needle and wire. This then exchanged for micropuncture sheath routine injection iliofemoral angiogram was performed revealing satisfactory positioning no extravasation dissection. Through this a Enjoison wire was advanced into the abdominal aorta and the micropuncture sheath exchanged for a short 6 Surinamese sheath. Through this an Omni Flush catheter was advanced into the abdominal aorta and digital traction aortogram pelvic angiogram was performed. We then navigated the contralateral iliac system with the Omni Flush catheter and a glide advantage wire advancing our catheter into the distal external iliac artery. From this position sequential subtraction angiography the right lower extremity was performed which revealed patent common femoral profundofemoral artery with no significant sclerosis or stenosis. The superficial femoral artery and proximal popliteal artery were patent with minimal atherosclerosis and no significant stenosis. The mid popliteal artery abruptly occluded with reconstitution of the below the knee popliteal artery. The primary runoff was through the peroneal artery however this dwindled to multiple small branches in the distal lower leg. The posterior tibial artery was occluded proximally with reconstitution near the ankle and the anterior tibial artery was occluded with no significant reconstitution. The Glidewire was then readvanced and the catheter withdrawn and the short 6 Surinamese sheath exchanged for a long 6 Surinamese sheath which is advanced and positioned in the mid superficial femoral artery. From this position using an angled quick cross catheter and a multitude of various wires we attempted to cross the lesion however at the dense calcification deflected our wire into subintimal planes and we were unable to successfully cross true lumen. After we had exhausted all potential wire and catheter combination options we felt that no further efforts would be of any benefit and that the patient would require open revascularization. The long 6 Surinamese sheath and exchanged for short 6 Surinamese sheath and a minx closure device deployed followed by 5 minutes of manual pressure. The patient was then taken to the recovery area with anticipated emergent bypass.
[2024-01-19] MEDS: Lactated Ringers 1,000 ML 15 ML IV (16:48)
[2024-01-19] MEDS: Cefazolin 2 GM in 0.9% Normal Saline (100mL Bag) 100 ML IV (17:58)
[2024-01-19] MEDS: Heparin Injection (Vial) 5,000 UNIT/ML VIAL 5000 UNIT (18:38)
--- NOTE | 2024-01-19 20:42 | OP.PCM_ITS ---
Report of Operation Date of Procedure: 01/19/24 Pre-Operative Diagnosis: right lower extremity acute ischemia, popliteal occlus ion Post-Operative Diagnosis: same Surgery/Procedure Performed:: right SFA-popliteal bypass with 6mm PTFE Surgeon: Shaan Rojas Type of Anesthesia: General Estimated Blood Loss (mL): 50 Description of Procedure: HPI: Patient is an 83-year-old female with acute right lower extremity ischemia and popliteal occlusion. She underwent unsuccessful attempt at endovascular treatment which failed in large part due to highly calcified occlusive chronic disease in addition to her acute thrombus. She is taken now for emergent right femoral-popliteal bypass. Description of procedure: Upon obtaining form consent and verification correct patient procedure site patient was taken to the operating room she was placed under general anesthesia. She was then positioned prepped and draped in usual sterile fashion time was performed. Ultrasound was used to evaluate the saphenous vein and it had segments that were of adequate caliber however there was insufficient length for bypass to be performed. Superficial femoral artery position was then marked proximal to the area of significant atherosclerotic burden. Longitudinal incision was then made in the distal medial thigh and Bovie electrocautery was dissect down through subcutaneous tissue. Self- retaining retractors were then put in position further dissection carried down to the fascia which was then incised and the retractors moved deeper into the wound. Musculature was then mobilized and retracted laterally exposing the neurovascular bundle. Sharp dissection was then used to dissect free the superficial femoral artery with care taken to identify protect adjacent nerve and vein structures. The vessel was soft with minimal atherosclerotic burden and a writing was used to place a vessel proximal and distal. Next longitudinal incision was made in the medial calf and Bovie electrocautery was dissect down to the level the fascia. The fascia was then incised and self-retaining retractors put in position. Combination of blunt and Bovie dissection was then utilized to enter into the popliteal fossa until the neurovascular bundle was identified. At this point sharp dissection was used dissect free the below the knee popliteal artery which was soft with minimal atherosclerotic burden. A right angle was then used to place a vessel loop proximal and distal and a tunneler used to tunnel from the thigh incision to the below the knee incision. The patient was then heparinized allowed to circulate for 3 minutes. A 6 mm ringed PTFE graft was then pulled through the tunneler and the superficial femoral artery occluded with Vesseloops. A longitudinal arteriotomy was created with 11 blade and sent with James scissors and the graft was beveled to match the arteriotomy. Anastomosis was then performed using 5-0 Prolene in running fashion. After completing the suture line vessels were flushed into the graft and the graft clamped with a Hydrojaw. Surgicel was placed adjacent to the anastomosis as there is a fair bit of needle hole bleeding. Next the popliteal artery was occluded with Vesseloops and longitudinal arteriotomy was created with 11 blade stented with James scissors. The graft was then cut the length and beveled to match the arteriotomy and anastomosis performed using a 5-0 Prolene in running fashion. Prior to completing suture line the graft was flushed and the vessels backbled. After completing the suture line clamps were first removed from the proximal popliteal artery and then the graft and allowed to back flush into the proximal popliteal artery before placing the distal clamp. Surgicel topical hemostatic was then placed at the anastomosis and the vessel interrogated Doppler. There is significant improvement in Doppler signal with now triphasic signal and there is a palpable pulse beyond the anastomosis. Heparin was then reversed with protamine and the incision inspected for hemostasis. Surgiflo topical hemostatic was then placed at the each of the anastomosis sites and the incision closed with 2-0 Vicryl, 3-0 Vicryl, 4 Mo nocryl and Dermabond for the skin. At the inclusion the case patient was awakened anesthesia taken the intensive care unit for hemodynamic and vascular monitoring.
--- NOTE | 2024-01-19 21:03 | PCM.POST.ANE ---
Anesthesia: Postop Eval I Current Vital Signs Temperature: 97.1 F Pulse Rate: 95 Blood Pressure: 108/70 Respiratory Rate: 16 Pulse Ox: 98 Oxygen Delivery Method: Nasal Cannula (3 l/m) Assessment Airway patent: Yes Spontaneous unlabored respirations: Yes Mental status: Awake and Calm nausea: No Vomiting: No Anesthesia Complication: No Fluid Hydration Crystalloid volume administer (ml): 1,400 Total IV fluid infused: 1,400 Progress Note Anesthesia document: Postop Eval 1 completed: Yes
[2024-01-19] MEDS: 0.45% Normal Saline 1,000 ML 75 ML IV (21:43)
[2024-01-19] MEDS: Atorvastatin Calcium 40 MG Tablet PO (21:45)
[2024-01-19 22:41] LABS: Partial Thromboplast Time 51.9 Seconds (24.1-36.2)
[2024-01-19] MEDS: oxyCODONE 5 MG Tablet PO (23:01)
[2024-01-19] MEDS: HEPARIN/D5w 25,000 UNITS 25,000 UNITS/250 ML IV.SOLN. 5 UNITS CONT INF (23:02)
[2024-01-20] VITALS (27 sets, daily range): BP systolic 92–157; BP diastolic 42–83; PULSE 78–144; RESP 10–24; TEMP 36.4–37.3; O2SAT 87–99; BMI 25.7; BMI 26.6
[2024-01-20] MEDS: tiZANidine HCl 2 MG Tablet 4 MG PO (00:27)
[2024-01-20] MEDS: Cefazolin 1 GM/50 ML BAG IV ×2 (01:19→08:02)
[2024-01-20] MEDS: HYDROmorphone 1 MG/ML Syringe IV ×5 (02:30→21:26)
--- NOTE | 2024-01-20 03:41 | EKG12_ITS ---
Test Reason : AFIB, [id number] Blood Pressure : / mmHG Vent. Rate : 134 BPM Atrial Rate : 000 BPM P-R Int : 000 ms QRS Dur : 086 ms QT Int : 346 ms P-R-T Axes : 000 -53 254 degrees QTc Int : 516 ms Atrial fibrillation with rapid ventricular response Left axis deviation Anterolateral infarct , age undetermined Abnormal ECG When compared with ECG of 18-JAN-2024 10:35, MANUAL COMPARISON REQUIRED, DATA IS UNCONFIRMED Confirmed by Roly Herrera ([id number]), greeting card editor ARELY SHORT ([id number]) on 01/23/2024 1:38:47 PM Referred By: RIGO Confirmed By:Roly Herrera
--- NOTE | 2024-01-20 03:50 | PCM.HOSP.N ---
Hospitalist Note Patient with asymptomatic episode PAF w/ RVR while sleeping, s/p recent OR. Will administer low dose lopressor IV x 1.
[2024-01-20] MEDS: Metoprolol Tartrate 5 MG/5 ML Vial IV (04:04)
[2024-01-20] MEDS: 0.9% Saline Lock 10 ML Syringe IV ×3 (04:04→17:11)
[2024-01-20 06:22] LABS: Absolute Lymphocyte Count 0.87 X10^3/uL (0.83-4.51); Absolute Neutrophil Count 6.6 X10^3/uL (2.0-7.7); Basophil# 0.03 X10^3/uL; Basophil% 0.4 % (0-1); Eosinophil# 0.01 X10^3/uL; Eosinophils% 0.1 % (0-5); Hematocrit 30.5 % (37-47); Hemoglobin 9.5 g/dL (12.0-15.0); Lymphocyte # 0.87 X10^3/ul (0.83-4.51); Lymphocyte % 10.3 % (19-41); Mean Corp Hgb Conc 31.1 g/dL (32-36); Mean Corpuscular Hgb 31.1 pg (27.0-32.0); Mean Platelet Vol. 10.7 fl (6.2-12.0); Monocyte# 0.89 X10^3/uL; Monocyte% 10.6 % (0-10); NRBC Flagged by Analyzer 0 % (0-5); Neutrophil # 6.56 X10^3/uL (2.7-7.7); Platelet Count 235 K/mm3 (150-450); RBC Distribution Width CV 16.4 % (11.6-14.6); RBC Distribution Width SD 60.1 fl (35.1-43.9); Red Blood Count 3.05 M/mm3 (4.2-5.4); White Blood Count 8.4 K/mm3 (4.4-11.0)
--- NOTE | 2024-01-20 06:24 | NURSING ---
Patient c/o right leg pain from thigh to feet throughout the night. Started with oxycodone, then zanaflax, patient not tolerating pain well for long. Patient requested more pain medication. PRN Dilaudid 0.5mg-1mg ordered. Began with 0.5mg Dilaudid d/t Dr. Rojas telling this nurse she had Versed during procedure and her BPs and respirations decreased and the recovery was prolonged in that aspect. Patient tolerated pain well for about 4 hours, BP and O2 sats did not drop. Patient requested pain medication again this AM following labs. Then administered 1mg Dilaudid PRN, will continue to monitor.
[2024-01-20 06:58] LABS: Anion Gap 8 (5-15); BUN 16 mg/dL (7-18); BUN/Creat Ratio 18.1 RATIO (10-20); Chloride 107 mmol/L (98-107); Creatinine, Serum 0.88 mg/dL (0.55-1.02); EST Glomerular Filtration Rate 65 mL/min (>60); Est Glom Filt Rate - Afr Amer 78 mL/min (>60); Estimated Creatinine Clearance 44.08 ml/min; Glucose 166 mg/dL (74-106); Sodium Level 137 mmol/L (136-145)
[2024-01-20 07:11] LABS: Partial Thromboplast Time 51.7 Seconds (24.1-36.2)
[2024-01-20] MEDS: Pantoprazole Sodium 20 MG Tablet PO (07:59)
[2024-01-20] MEDS: Furosemide 40 MG Tablet PO ×2 (07:59→16:27)
[2024-01-20] MEDS: Metoprolol(XL)Succ 50 MG Tablet PO (07:59)
[2024-01-20] MEDS: Spironolactone 25 MG Tablet 12.5 MG PO (08:00)
[2024-01-20] MEDS: Tolterodine Tartrate 2 MG CAP.SA PO (08:00)
[2024-01-20] MEDS: Glimepiride 2 MG Tablet PO (08:00)
[2024-01-20] MEDS: 0.45% Normal Saline 1,000 ML 75 ML IV ×2 (10:44→23:56)
[2024-01-20] MEDS: oxyCODONE 5 MG Tablet PO (10:49)
--- NOTE | 2024-01-20 12:36 | CASEMGMT ---
Addendum entered by William Rutherford 01/20/24 15:01: Per Le @ [facility], they are able to accept pt w/SOC slated for Tuesday. DC plan updated. Pt made aware. Questions answered. Pt voices appreciation. She denies having further questions or discharge needs. Addendum entered by William Rutherford 01/20/24 14:05: Per Edy in the pharmacy, cost of Lovenox is $100 for the 30-day supply, no PA required. Pt and made aware of cost and they state this is affordable. Addendum entered by William Rutherford 01/20/24 13:13: COLTON Sanchez for Dr Blanca, in to see pt. She states anticipates pt will be ready to discharge home tomorrow and states pt will dc home on Lovenox. aware and is agreeable to learning how to do injections. RN aware and nursing to provide education to /pt. Laura states she will send script to the pharmacy today for the Lovenox. XOCHILT HAND will follow for bullock check. Pt and chose to have scripts sent to [facility] @ [place] [employer] updated. Original Note: XOCHILT HAND NOTE: Per therapy, pt very anxious and did not do well w/therapy today. Only able to ambulate 4 ft today. Therapy states pt would not be safe to discharge home today, but state if she is able to get closer to her baseline/more confident when up/ambulating, then she would be safe @ home, possible HHC. XOCHILT CM to room. Pt sitting up in chair. @ bedside. Pt verifies it was very difficult for her today when getting up, stating she is having a lot of pain, not able to bear weight at all, and even just to hop is painful. She wishes to discharge home, but does not feel safe to discharge home today. She states once her pain is improved and she is able to ambulate better, then she would want to discharge home w/HHC. states prefers [facility] and declines wanting list of other HHC options unless [facility] unable to accept her. Message sent to Le @ [facility] and referral made. Awaiting response. They do have a rollator @ home and states they have access to a shower chair. They deny having further DME needs. states he can bring in portable O2 tank @ discharge, if needed. They do have a few pulse ox's @ home as well. Pt and deny having other discharge needs/concerns. Plan: Home w/spousal support and HHC. Follow for any increase in O2 needs @ discharge. Joe BAILEYN RN CM
--- NOTE | 2024-01-20 13:21 | PCM.PN.SRG ---
Subjective Subjective Eri was seen earlier this morning resting in bed and again this afternoon sitting up in the bedside chair. Her was also at bedside this afternoon. She reports that overall the pain in her right leg is better than it was yesterday. She does have some hypersensitivity in the right foot as well as expected discomfort at the right thigh and calf incision sites. Her hemoglobin was overall stable this morning at 9.5. No bleed through has been noted on her dressings. She was noted to be in A-fib this morning with heart rate into the 130s, this seems to have improved through the afternoon and after her home dose of metoprolol. She did work with PT and OT today. They are recommending further therapy and ultimately home health care at discharge. Patient was seen again later this afternoon. She was up in the chair 5 hours today. Overall RLE pain better than it was prior to surgery; however, still with a lot of burning and sensitivity to touch in her foot. She has not found oxycodone to be very effective for this so has been still requiring dilaudid 1mg, but having to be careful due to her lower blood pressures. Objective Data Objective Data Vital Signs: Vital Signs Temp Pulse Resp BP Pulse Ox O2 Del Method O2 Flow Rate 97.5 F L 100 18 96/73 90 Room Air 2 01/20/24 12:00 01/20/24 13:00 01/20/24 13:00 01/20/24 13:00 01/20/24 13:00 01/20/24 13:00 01/20/24 11:00 Oxygen Flow Rate (L/min) 2 Oxygen Delivery Method Room Air Weight: 150 lb 2.157 oz Body Mass Index (BMI) 26.6 Intake & Output: Intake and Output for Last 24 Hours 01/18/24 01/19/24 01/20/24 23:59 23:59 23:59 Intake Total 341 / 341 322.77 / 382.77 1397.00 / 1397.00 Output Total 500 / 500 275 / 275 Balance -159 / -159 322.77 / 382.77 1122.00 / 1122.00 Lab / Micro Data 01/20/24 05:55 01/20/24 05:55 Labs: Laboratory Results - last 24 hr 01/19/24 15:23: Activated Clotting Time 305 H 01/19/24 17:07: Blood Type A POSITIVE, Antibody Screen NEGATIVE, Crossmatch See Detail 01/19/24 21:50: APTT 51.9 H 01/20/24 05:55: WBC 8.4, RBC 3.05 L, Hgb 9.5 L, Hct 30.5 L, MCV 100.0 H, MCH 31.1, MCHC 31.1 L, RDW Std Deviation 60.1 H, RDW Coeff of Kate 16.4 H, Plt Count 235, MPV 10.7, Immature Gran % (Auto) 0.600, Neut % (Auto) 78.0 H, Lymph % (Auto) 10.3 L, [place] % (Auto) 10.6 H, Eos % (Auto) 0.1, Baso % (Auto) 0.4, Absolute Neuts (auto) 6.6, Absolute Lymphs (auto) 0.87, Nucleated RBC % 0, APTT 51.7 H, Sodium 137, Potassium 4.0, Chloride 107, Carbon Dioxide 22.0, Anion Gap 8, BUN 16, Creatinine 0.88, Estim Creat Clear Calc 44.08, Est GFR (MDRD) Af Amer 78, Est GFR (MDRD) Non-Af 65, BUN/Creatinine Ratio 18.1, Glucose 166 H, Calcium 9.0 Physical Exam Const alert and oriented x3 General Appearance: cooperative HEENT normocephalic, head/scalp atraumatic, hearing grossly normal bilaterally, external ears normal and external nose normal Eyes EOMs intact bilaterally General Eye: normal appearance of both eyes Neck General: normal visual inspection and trachea midline Resp normal respiratory effort, no retractions and no use of accessory muscles Effort and Inspection: able to speak in complete sentences Cardio Rate: regular rate Rhythm: abnormal rhythm Extremity Extremity Narrative: Right PT multiphasic on Doppler, right DP monophasic on Doppler. Right foot is now warm and overall pink. Right third toe still with cyanotic/ischemic appearance and right first toe still with ulcer with overlying eschar. Right thigh and calf incision sites with postop silver dressing in place, no bleedthrough. No significant right lower extremity edema. Right lower leg compartments are all soft to palpation, tender only over the incisions. Neuro oriented x3, CN's II-XII intact bilaterally, moves all extremities and no focal motor deficits Psych mental status grossly normal Appearance: grossly normal Attitude: engaged Activity / Motor Behavior: appropriate eye contact Speech: normal speech Mood & Affect: euthymic mood Assessment & Plan Assessment/Plan (1) Ischemic pain of right foot: PLAN: She is status post right SFA to popliteal bypass with PTFE on 01/19/2024. Vascular exam is improved to the right foot with dopplerable PT and DP, right foot warm and overall improved in color. No signs of bleeding and hemoglobin stable. Will transition to therapeutic heparin this afternoon and as long as no adverse bleeding then plan to transition to lovenox in the morning. Plan is for her to discharge on Lovenox 70mg SQ BID x 30 days and then we will coordinate bridge back to Coumadin on an outpatient basis. We will plan to see her in the office in 2-3 weeks. Patient has seen Dr. Blanca as an outpatient. Right third toe still with ischemic appearance and first toe with ulceration, may still ultimately require intervention. Will place podiatry consultation. Incision sites are closed with skin glue. Presently, covered with silver post-op dressing. These dressings are to stay in place for 1 week post-op, then once removed okay to leave the incisions open to air. Will add gabapentin to try to better control her foot pain. Discussed with patient the goal of relying more on oral pain management medications, ultimately will need to be well managed on oral medications along for discharge. She is understanding. From a surgical perspective, OK for d/c as early as tomorrow once transitioned to Lovenox as long as PT feels she is safe for d/c (plan is for [facility]) and she is otherwise medically stable.
--- NOTE | 2024-01-20 13:56 | PN_ITS ---
Subjective Subjective Patient seen and examined. She was a bit drowsy but would wake to voice call. Still complained of pain in her right lower extremity. Review of symptoms otherwise negative. She did have a right SFA popliteal bypass after she had an unsuccessful attempt at revascularization via angiogram. Objective Data Objective Data Vital Signs: Vital Signs Temp Pulse Resp BP Pulse Ox O2 Del Method O2 Flow Rate 97.5 F L 100 18 96/73 90 Room Air 2 01/20/24 12:00 01/20/24 13:00 01/20/24 13:00 01/20/24 13:00 01/20/24 13:00 01/20/24 13:00 01/20/24 11:00 Oxygen Flow Rate (L/min) 2 Oxygen Delivery Method Room Air Weight: 150 lb 2.157 oz Body Mass Index (BMI) 26.6 Intake & Output: Intake and Output for Last 24 Hours 01/18/24 01/19/24 01/20/24 23:59 23:59 23:59 Intake Total 341 / 341 322.77 / 382.77 1397.00 / 1397.00 Output Total 500 / 500 275 / 275 Balance -159 / -159 322.77 / 382.77 1122.00 / 1122.00 Lab / Micro Data 01/20/24 05:55 01/20/24 05:55 Labs: Laboratory Results - last 24 hr 01/19/24 15:23: Activated Clotting Time 305 H 01/19/24 17:07: Blood Type A POSITIVE, Antibody Screen NEGATIVE, Crossmatch See Detail 01/19/24 21:50: APTT 51.9 H 01/20/24 05:55: WBC 8.4, RBC 3.05 L, Hgb 9.5 L, Hct 30.5 L, MCV 100.0 H, MCH 31.1, MCHC 31.1 L, RDW Std Deviation 60.1 H, RDW Coeff of Kate 16.4 H, Plt Count 235, MPV 10.7, Immature Gran % (Auto) 0.600, Neut % (Auto) 78.0 H, Lymph % (Auto) 10.3 L, [place] % (Auto) 10.6 H, Eos % (Auto) 0.1, Baso % (Auto) 0.4, Absolute Neuts (auto) 6.6, Absolute Lymphs (auto) 0.87, Nucleated RBC % 0, APTT 51.7 H, Sodium 137, Potassium 4.0, Chloride 107, Carbon Dioxide 22.0, Anion Gap 8, BUN 16, Creatinine 0.88, Estim Creat Clear Calc 44.08, Est GFR (MDRD) Af Amer 78, Est GFR (MDRD) Non-Af 65, BUN/Creatinine Ratio 18.1, Glucose 166 H, Calcium 9.0 Physical Exam Const alert, oriented x3 and no apparent distress General Appearance: cooperative Orientation / Consciousness: lethargic HEENT normocephalic, head/scalp atraumatic, hearing grossly normal bilaterally, moist oral mucous membranes and oropharynx normal Eyes PERRL, EOMs intact bilaterally and conjunctivae normal Neck no lymphadenopathy and supple Resp normal respiratory effort, normal air movement, no retractions, no use of accessory muscles and clear to auscultation bilaterally Cardio regular rate, regular rhythm, S1 normal heart sound, S2 normal heart sound and no murmurs GI normal to inspection, nondistended, normoactive bowel sounds, soft to palpation, non-tender and non-distended Extremity Extremity Narrative: Right foot remains erythematous, cold and tender to touch, markedly diminished peripheral pulses. Intact dressing over medial aspect of RLE at site of SFA popliteal bypass Skin Skin Narrative: as under extremity Neuro oriented x3, CN's II-XII intact bilaterally, moves all extremities and no focal motor deficits Neuro Narrative: drowsy Sensorium / Orientation: awake Motor Exam: general weakness Psych Appearance: appropriate Assessment & Plan Assessment/Plan (1) Acute pain of right lower extremity: (2) Ischemic pain of right foot: PLAN: Plan #Acute limb ischemia of the RLE * still complains of pain in her right foot, though she says it is controlled by her IV and oral pain meds. * on heparin drip. * vascular surgery on board. * CTA of the abdomen and pelvis with runoff ordered in the ED and shows short segment right popliteal occlusion with extensive calcification with soft/acute appearance and suspect that his in situ thrombosis. * F had unsuccessful endovascular treatment which failed in part due to highly calcified occlusive chronic disease in addition to acute thrombus. She therefore had an emergent right femoropopliteal bypass yesterday. Today's postop day 1. * Remains on heparin drip. Management as per vascular surgeon. * * #History of factor V Leiden deficiency * On Coumadin due to history of blood clots. * Now on heparin drip. Coumadin on hold. * Per vascular surgery to allow elevated INR to trend down on its own. INR was 2.9 on admission, now down to 2.6. * Remains on heparin drip. * #Hypertension: on losartan and metoprolol as well as spironolactone. IV hydralazine prn #HFrEF: * on lasix, metoprolol, spironolactone and losartan. * Has known EF of 35-40% per echo done 01/02/2024. * It also showed moderate left ventricular systolic dysfunction with segmental wall motion with small pericardial effusion. * not in exacerbation #Hyperlipidemia: on statin DVT prophylaxis: heparin drip Code status: full code Charges/Coding Visit Charges Inpatient E&M: 08585 Subs Hosp L3
--- NOTE | 2024-01-20 14:30 | PCM.CONS.GEN ---
Assessment & Plan Assessment/Plan (1) Ischemic pain of right foot: PLAN: Plan Evaluation performed. There is noted to be significant improvement right foot s/p vascular intervention She has an eschar dorsal right 1st toe and right 3rd toe is dusky with some necrosis dorsally; at this point recommend monitoring to allow to demarcate and to see what heals - discussed with her she may need debridement or possibly toe amputation pending healing in the future Keep right foot clean and dry Patient is followed by vascular service and nursing is also monitoring foot, from podiatry standpoint will check up on foot weekly; please contact sooner if needed Thank you for consultation HPI Consult Data Date of Consult: 01/21/24 HPI Narrative Reason for Consultation: Right foot ischemia HPI Narrative: JAROD PRITCHARD, is a 83 F who was admitted for right foot ischemia now s/p vascular intervention. Right 3rd toe is dusky, also has a wound on right 1st toe. Patient relates her foot is feeling significantly better since having vascular intervention. She is sitting up in chair, pain appears controlled. Her is present as well. She relates she is doing well at this time. No complaints of f/c/n/v. [facility] Medical History Atrial fibrillation Factor V Leiden Anxiety Anemia Hypokalemia Acute hypoxemic respiratory failure CHF (congestive heart failure) Home Medications ?Medication ?Instructions ?Recorded ?Last Taken ?Type omeprazole 20 mg capsule,delayed 20 mg PO DAILY reflux 09/23/23 12/31/23 History release oxybutynin chloride 10 mg 10 mg PO DAILY bladder 09/23/23 12/31/23 History tablet,extended release 24 hr simvastatin 80 mg tablet 80 mg PO QHS cholesterol 09/23/23 12/31/23 History warfarin 2 mg tablet 2 mg PO DAILY blood thinner 09/23/23 12/31/23 History fluticasone propionate 50 2 spray intranasal DAILY PRN nasal 12/31/23 12/31/23 History mcg/actuation nasal congestion spray,suspension glimepiride 2 mg tablet 2 mg PO DAILY dm 12/31/23 Unknown History tizanidine 4 mg tablet 4 mg PO QHS PRN PRN muscle spasm 12/31/23 Unknown History furosemide 40 mg tablet 40 mg PO BIDLX 30 days #60 tabs 01/03/24 Unknown Rx losartan 50 mg tablet 50 mg PO DINNER 30 days #30 tabs 01/03/24 Unknown Rx metoprolol succinate 50 mg 50 mg PO DAILY 1 month #30 tabs 01/03/24 Unknown Rx tablet,extended release 24 hr spironolactone 25 mg tablet 12.5 mg (1/2 x 25 mg) PO DAILY #30 01/03/24 Unknown Rx tabs cephalexin 500 mg capsule 500 mg PO Q6 #40 CAPSULES 01/13/24 Unknown Rx enoxaparin 80 mg/0.8 mL 70 mg (0.7 mL) subcut Q12H 30 days 01/20/24 Unknown Rx subcutaneous syringe (Lovenox) #42 mL Allergy/AdvReac Type Severity Reaction Status Date / Time benazepril (From Lotensin) Allergy Mild DOESNT Verified 01/18/24 10:03 REMEMBER quinapril (From Accupril) Allergy Mild UNKNOWN Verified 01/18/24 10:03 Sulfa (Sulfonamide Allergy Mild Hives Verified 01/18/24 10:03 Antibiotics) verapamil (From Calan) Allergy Mild UNKNOWN Verified 01/18/24 10:03 Surgical History S/P carotid endarterectomy Social History Smoking Status: Never smoker Physical Exam Const alert, oriented x3 and no apparent distress Constitutional Narrative: Right foot with dry eschar dorsal 1st toe, also right 3rd toe is dusky/blue, there is small intact bulla dorsal base of 2nd/3rd toes, there is no drainage, CFT < 3 seconds to all toes with good temperature except 3rd toe which is delayed, no crepitus, no maloder, no fluctuance, overall appearance of right foot much improved compared to when I saw her foot on Tuesday, significantly less pain to right foot. Lab / Micro Data 01/21/24 06:55 01/21/24 06:55 Labs: Laboratory Results - last 24 hr 01/20/24 21:20: APTT 146.4 H* 01/21/24 06:55: WBC 8.0, RBC 2.69 L, Hgb 8.4 L, Hct 26.4 L, MCV 98.1, MCH 31.2, MCHC 31.8 L, RDW Std Deviation 59.2 H, RDW Coeff of Kate 16.5 H, Plt Count 192, MPV 10.1, Immature Gran % (Auto) 0.600, Neut % (Auto) 73.6 H, Lymph % (Auto) 12.8 L, Clayton % (Auto) 12.2 H, Eos % (Auto) 0.6, Baso % (Auto) 0.2, Absolute Neuts (auto) 5.9, Absolute Lymphs (auto) 1.03, Nucleated RBC % 0.2, APTT 75.9 H, Sodium 134 L, Potassium 3.7, Chloride 105, Carbon Dioxide 21.0, Anion Gap 8, BUN 15, Creatinine 0.83, Estim Creat Clear Calc 47.54, Est GFR (MDRD) Af Amer 84, Est GFR (MDRD) Non-Af 69, BUN/Creatinine Ratio 18.0, Glucose 108 H, Calcium 8.6
[2024-01-20] MEDS: Ensure Plus High Protein 120 ML LIQUID PO (16:26)
[2024-01-20] MEDS: Losartan Potassium 50 MG Tablet PO (16:26)
[2024-01-20] MEDS: Gabapentin 100 MG Capsule 200 MG PO (18:25)
[2024-01-20] MEDS: Atorvastatin Calcium 40 MG Tablet PO (20:51)
[2024-01-20] MEDS: HEPARIN/D5w 25,000 UNITS 25,000 UNITS/250 ML IV.SOLN. 10 UNITS CONT INF (22:00)
[2024-01-20 22:10] LABS: Partial Thromboplast Time 146.4 Seconds (24.1-36.2)
[2024-01-21] VITALS (28 sets, daily range): BP systolic 96–125; BP diastolic 40–83; PULSE 93–123; RESP 10–22; TEMP 36.3–37.1; O2SAT 90–98; BMI 27.6
[2024-01-21] MEDS: HYDROmorphone 1 MG/ML Syringe IV (01:35)
[2024-01-21] MEDS: oxyCODONE 5 MG Tablet PO ×2 (05:39→09:51)
[2024-01-21 07:09] LABS: Absolute Lymphocyte Count 1.03 X10^3/uL (0.83-4.51); Absolute Neutrophil Count 5.9 X10^3/uL (2.0-7.7); Basophil# 0.02 X10^3/uL; Basophil% 0.2 % (0-1); Eosinophil# 0.05 X10^3/uL; Eosinophils% 0.6 % (0-5); Hematocrit 26.4 % (37-47); Hemoglobin 8.4 g/dL (12.0-15.0); Lymphocyte # 1.03 X10^3/ul (0.83-4.51); Lymphocyte % 12.8 % (19-41); Mean Corp Hgb Conc 31.8 g/dL (32-36); Mean Corpuscular Hgb 31.2 pg (27.0-32.0); Mean Corpuscular Volume 98.1 fL (81-99); Mean Platelet Vol. 10.1 fl (6.2-12.0); Monocyte# 0.98 X10^3/uL; Monocyte% 12.2 % (0-10); NRBC Flagged by Analyzer 0.2 % (0-5); Neutrophil # 5.89 X10^3/uL (2.7-7.7); Neutrophil % 73.6 % (47-70); Platelet Count 192 K/mm3 (150-450); RBC Distribution Width CV 16.5 % (11.6-14.6); RBC Distribution Width SD 59.2 fl (35.1-43.9); Red Blood Count 2.69 M/mm3 (4.2-5.4)
[2024-01-21 07:19] LABS: Partial Thromboplast Time 75.9 Seconds (24.1-36.2)
[2024-01-21 07:38] LABS: Anion Gap 8 (5-15); BUN 15 mg/dL (7-18); Calcium,Total 8.6 mg/dL (8.5-10.1); Chloride 105 mmol/L (98-107); Creatinine, Serum 0.83 mg/dL (0.55-1.02); EST Glomerular Filtration Rate 69 mL/min (>60); Est Glom Filt Rate - Afr Amer 84 mL/min (>60); Estimated Creatinine Clearance 47.54 ml/min; Glucose 108 mg/dL (74-106); Potassium 3.7 mmol/L (3.5-5.1); Sodium Level 134 mmol/L (136-145)
[2024-01-21] MEDS: Tolterodine Tartrate 2 MG CAP.SA PO (08:22)
[2024-01-21] MEDS: Metoprolol(XL)Succ 50 MG Tablet PO (08:23)
[2024-01-21] MEDS: Furosemide 40 MG Tablet PO ×2 (08:23→18:09)
[2024-01-21] MEDS: Spironolactone 25 MG Tablet 12.5 MG PO (08:23)
[2024-01-21] MEDS: Pantoprazole Sodium 20 MG Tablet PO (08:23)
[2024-01-21] MEDS: Glimepiride 2 MG Tablet PO (08:24)
[2024-01-21] MEDS: Enoxaparin 80 MG/0.8 ML Syringe 70 MG SC ×2 (08:27→19:41)
[2024-01-21] MEDS: Ensure Plus High Protein 120 ML LIQUID PO ×2 (08:27→17:42)
[2024-01-21] MEDS: Gabapentin 100 MG Capsule 200 MG PO ×2 (08:27→17:41)
--- NOTE | 2024-01-21 10:13 | PN_ITS ---
Subjective Subjective Patient seen and examined. She still complains of pain in her leg. She had no complaints and review of systems otherwise negative. She has been started on therapeutic Lovenox shots per vascular surgery and she is off the heparin drip now. Objective Data Objective Data Vital Signs: Vital Signs Temp Pulse Resp BP Pulse Ox O2 Del Method O2 Flow Rate 98.8 F 114 H 18 116/52 L 97 Nasal Cannula 2 01/21/24 08:00 01/21/24 08:23 01/21/24 08:00 01/21/24 08:00 01/21/24 08:00 01/21/24 08:00 01/21/24 08:00 Oxygen Flow Rate (L/min) 2 Oxygen Delivery Method Nasal Cannula Weight: 155 lb 10.342 oz Body Mass Index (BMI) 27.6 Intake & Output: Intake and Output for Last 24 Hours 01/19/24 01/20/24 01/21/24 23:59 23:59 23:59 Intake Total 322.77 / 382.77 2829.00 / 2829.00 50.75 / 50.75 Output Total 575 / 575 350 / 350 Balance 322.77 / 382.77 2254.00 / 2254.00 -299.25 / -299.25 Lab / Micro Data 01/21/24 06:55 01/21/24 06:55 Labs: Laboratory Results - last 24 hr 01/20/24 21:20: APTT 146.4 H* 01/21/24 06:55: WBC 8.0, RBC 2.69 L, Hgb 8.4 L, Hct 26.4 L, MCV 98.1, MCH 31.2, MCHC 31.8 L, RDW Std Deviation 59.2 H, RDW Coeff of Kate 16.5 H, Plt Count 192, MPV 10.1, Immature Gran % (Auto) 0.600, Neut % (Auto) 73.6 H, Lymph % (Auto) 12.8 L, Blaine % (Auto) 12.2 H, Eos % (Auto) 0.6, Baso % (Auto) 0.2, Absolute Neuts (auto) 5.9, Absolute Lymphs (auto) 1.03, Nucleated RBC % 0.2, APTT 75.9 H, Sodium 134 L, Potassium 3.7, Chloride 105, Carbon Dioxide 21.0, Anion Gap 8, BUN 15, Creatinine 0.83, Estim Creat Clear Calc 47.54, Est GFR (MDRD) Af Amer 84, Est GFR (MDRD) Non-Af 69, BUN/Creatinine Ratio 18.0, Glucose 108 H, Calcium 8.6 Physical Exam Const alert, oriented x3, no apparent distress and average body habitus General Appearance: cooperative Orientation / Consciousness: lethargic HEENT normocephalic, head/scalp atraumatic, hearing grossly normal bilaterally, moist oral mucous membranes and oropharynx normal Eyes PERRL, EOMs intact bilaterally and conjunctivae normal Neck no lymphadenopathy and supple Resp normal respiratory effort, normal air movement, no retractions, no use of accessory muscles and clear to auscultation bilaterally Cardio regular rate, regular rhythm, S1 normal heart sound, S2 normal heart sound and no murmurs GI normal to inspection, nondistended, normoactive bowel sounds, soft to palpation, non-tender and non-distended Extremity Extremity Narrative: Right foot remains erythematous, mildly cold and tender to touch, markedly diminished peripheral pulses. Intact dressing over medial aspect of RLE at site of SFA popliteal bypass Skin Skin Narrative: as under extremity Neuro oriented x3, CN's II-XII intact bilaterally, moves all extremities and no focal motor deficits Neuro Narrative: drowsy Sensorium / Orientation: awake and alert Motor Exam: general weakness Psych affect normal Appearance: appropriate Assessment & Plan Assessment/Plan (1) Acute pain of right lower extremity: (2) Ischemic pain of right foot: PLAN: Plan #Acute limb ischemia of the RLE * still complains of pain in her right foot, though she says it is controlled by her IV and oral pain meds. * heparin drip discontinued and patient now on SQ therapeutic lovenox * vascular surgery on board. * CTA of the abdomen and pelvis with runoff ordered in the ED and shows short segment right popliteal occlusion with extensive calcification with soft/acute appearance and suspect that his in situ thrombosis. * F had unsuccessful endovascular treatment which failed in part due to highly calcified occlusive chronic disease in addition to acute thrombus. She therefore had an emergent right femoropopliteal bypass yesterday. Today's postop day 2. * will increase her oxycodone to 10mg q4hr prn. * * #History of factor V Leiden deficiency * On Coumadin due to history of blood clots. * Now on heparin drip. Coumadin on hold. * Per vascular surgery to allow elevated INR to trend down on its own. INR was 2.9 on admission, now down to 2.6. * Remains on heparin drip. * #Hypertension: on losartan and metoprolol as well as spironolactone. IV hydralazine prn #HFrEF: * on lasix, metoprolol, spironolactone and losartan. * Has known EF of 35-40% per echo done 01/02/2024. * It also showed moderate left ventricular systolic dysfunction with segmental wall motion with small pericardial effusion. * not in exacerbation #Hyperlipidemia: on statin DVT prophylaxis:on therapeutic lovenox Code status: full code DIsposition: for likely dc home tomorrow once pain is better controlled. Charges/Coding Visit Charges Inpatient E&M: 35808 Subs Hosp L2
[2024-01-21] MEDS: oxyCODONE 5 MG Tablet 10 MG PO ×2 (15:19→19:42)
[2024-01-21] MEDS: Losartan Potassium 50 MG Tablet PO (17:42)
--- NOTE | 2024-01-21 17:45 | CASEMGMT ---
Social Work SW informed by PT pt agreeable to SNF. SW met w/pt and , 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 also in the room. SW spoke w/pt in regard to discharge plan, she is agreeable to SNF. SW provided to pt and a list from [facility] of custodial facilities in network w/pt's insurance, in pt's preferred geographic area and complete w/quality and resource use data. SW explained the referral and insurance process to pt and , and explained a SW will follow up Tuesday on where they would like referrals sent. SW asked pt to choose 3 facilities. Pt states understanding, SW to follow up on Tuesday. [address]
[2024-01-21] MEDS: Atorvastatin Calcium 40 MG Tablet PO (19:42)
[2024-01-22] VITALS (11 sets, daily range): BP systolic 92–138; BP diastolic 54–79; PULSE 84–107; RESP 11–23; TEMP 36.3–37; O2SAT 95–100; BMI 27.2
[2024-01-22] MEDS: oxyCODONE 5 MG Tablet 10 MG PO ×3 (05:16→19:53)
[2024-01-22] MEDS: Gabapentin 100 MG Capsule 200 MG PO ×2 (08:08→17:52)
[2024-01-22] MEDS: Furosemide 40 MG Tablet PO ×2 (08:08→17:52)
[2024-01-22] MEDS: Tolterodine Tartrate 2 MG CAP.SA PO (08:09)
[2024-01-22] MEDS: Enoxaparin 80 MG/0.8 ML Syringe 70 MG SC ×2 (08:09→19:54)
[2024-01-22] MEDS: Glimepiride 2 MG Tablet PO (08:09)
[2024-01-22] MEDS: Pantoprazole Sodium 20 MG Tablet PO (08:10)
[2024-01-22 09:24] LABS: Absolute Neutrophil Count 5.6 X10^3/uL (2.0-7.7); Basophil# 0.03 X10^3/uL; Basophil% 0.4 % (0-1); Eosinophil# 0.12 X10^3/uL; Eosinophils% 1.5 % (0-5); Hematocrit 26.7 % (37-47); Hemoglobin 8.5 g/dL (12.0-15.0); Lymphocyte % 15.3 % (19-41); Mean Corp Hgb Conc 31.8 g/dL (32-36); Mean Corpuscular Hgb 32.1 pg (27.0-32.0); Mean Corpuscular Volume 100.8 fL (81-99); Mean Platelet Vol. 11.3 fl (6.2-12.0); Monocyte% 11.5 % (0-10); NRBC Flagged by Analyzer 0 % (0-5); Neutrophil # 5.57 X10^3/uL (2.7-7.7); Neutrophil % 70.9 % (47-70); Platelet Count 177 K/mm3 (150-450); RBC Distribution Width CV 16.4 % (11.6-14.6); RBC Distribution Width SD 60.8 fl (35.1-43.9); Red Blood Count 2.65 M/mm3 (4.2-5.4); White Blood Count 7.9 K/mm3 (4.4-11.0)
[2024-01-22 09:47] LABS: Anion Gap 7 (5-15); BUN 20 mg/dL (7-18); BUN/Creat Ratio 22.1 RATIO (10-20); Calcium,Total 8.9 mg/dL (8.5-10.1); Chloride 106 mmol/L (98-107); EST Glomerular Filtration Rate 63 mL/min (>60); Est Glom Filt Rate - Afr Amer 76 mL/min (>60); Estimated Creatinine Clearance 43.57 ml/min; Glucose 98 mg/dL (74-106); Potassium 3.5 mmol/L (3.5-5.1); Sodium Level 138 mmol/L (136-145)
--- NOTE | 2024-01-22 11:45 | PN_ITS ---
Subjective Subjective Patient seen and examined. Hip pain is well-controlled. She has no active complaints. Her pain was better controlled. Review of systems is otherwise negative. She now wants to go to a SNF. Case management on board to help facilitate placement. Objective Data Objective Data Vital Signs: Vital Signs Temp Pulse Resp BP Pulse Ox O2 Del Method O2 Flow Rate 98.0 F 99 18 109/64 95 Room Air 2 01/22/24 07:30 01/22/24 07:30 01/22/24 07:30 01/22/24 07:30 01/22/24 07:30 01/22/24 07:30 01/22/24 07:00 Oxygen Flow Rate (L/min) 2 Oxygen Delivery Method Room Air Weight: 153 lb 10.595 oz Body Mass Index (BMI) 27.2 Intake & Output: Intake and Output for Last 24 Hours 01/20/24 01/21/24 01/22/24 23:59 23:59 23:59 Intake Total 2829.00 / 2829.00 1390.75 / 1390.75 0 / 0 Output Total 575 / 575 1100 / 1100 150 / 150 Balance 2254.00 / 2254.00 290.75 / 290.75 -150 / -150 Lab / Micro Data 01/22/24 07:50 01/22/24 07:50 Labs: Laboratory Results - last 24 hr 01/22/24 07:50: WBC 7.9, RBC 2.65 L, Hgb 8.5 L, Hct 26.7 L, MCV 100.8 H, MCH 32.1 H, MCHC 31.8 L, RDW Std Deviation 60.8 H, RDW Coeff of Kate 16.4 H, Plt Count 177, MPV 11.3, Immature Gran % (Auto) 0.400, Neut % (Auto) 70.9 H, Lymph % (Auto) 15.3 L, Garrett % (Auto) 11.5 H, Eos % (Auto) 1.5, Baso % (Auto) 0.4, Absolute Neuts (auto) 5.6, Absolute Lymphs (auto) 1.20, Nucleated RBC % 0, Sodium 138, Potassium 3.5, Chloride 106, Carbon Dioxide 25.0, Anion Gap 7, BUN 20 H, Creatinine 0.90, Estim Creat Clear Calc 43.57, Est GFR (MDRD) Af Amer 76, Est GFR (MDRD) Non-Af 63, BUN/Creatinine Ratio 22.1 H, Glucose 98, Calcium 8.9 Physical Exam Const alert, oriented x3, no apparent distress and average body habitus General Appearance: cooperative HEENT normocephalic, head/scalp atraumatic, hearing grossly normal bilaterally, moist oral mucous membranes and oropharynx normal Eyes PERRL, EOMs intact bilaterally and conjunctivae normal Neck no lymphadenopathy and supple Resp normal respiratory effort, normal air movement, no retractions, no use of accessory muscles and clear to auscultation bilaterally Cardio regular rate, regular rhythm, S1 normal heart sound, S2 normal heart sound and no murmurs GI normal to inspection, nondistended, normoactive bowel sounds, soft to palpation, non-tender and non-distended Extremity Extremity Narrative: Right foot erythema has diminished. Moderately warm to touch. Peripheral pulses more palpable. Intact dressing over medial aspect of RLE at site of SFA popliteal bypass Skin Skin Narrative: as under extremity Neuro oriented x3, CN's II-XII intact bilaterally, moves all extremities and no focal motor deficits Neuro Narrative: drowsy Sensorium / Orientation: awake and alert Motor Exam: general weakness Psych affect normal Appearance: appropriate Assessment & Plan Assessment/Plan (1) Acute pain of right lower extremity: (2) Ischemic pain of right foot: PLAN: Plan #Acute limb ischemia of the RLE * pain in her right foot has improved. * heparin drip discontinued and patient now on SQ therapeutic lovenox * vascular surgery on board. * CTA of the abdomen and pelvis with runoff ordered in the ED and shows short segment right popliteal occlusion with extensive calcification with soft/acute appearance and suspect that his in situ thrombosis. * F had unsuccessful endovascular treatment which failed in part due to highly calcified occlusive chronic disease in addition to acute thrombus. She therefore had an emergent right femoropopliteal bypass yesterday. Today's postop day 2. * on PO oxycodone 10mg q6prn * * #History of factor V Leiden deficiency * On Coumadin due to history of blood clots. * Now on heparin drip. Coumadin on hold. * on therapeutic lovenox. Per vascular surgery, to e discharged on therapeutic lovenox, and to be transitioned to oral coumadin when she follows up with vascular surgery. * #Hypertension: on losartan and metoprolol as well as spironolactone. IV hydralazine prn #HFrEF: * on lasix, metoprolol, spironolactone and losartan. * Has known EF of 35-40% per echo done 01/02/2024. * It also showed moderate left ventricular systolic dysfunction with segmental wall motion with small pericardial effusion. * not in exacerbation #Hyperlipidemia: on statin DVT prophylaxis:on therapeutic lovenox Code status: full code DIsposition: patient now wants to go to SNF. Case management on board to help with placement. Charges/Coding Visit Charges Inpatient E&M: 17802 Subs Hosp L2
--- NOTE | 2024-01-22 11:48 | PCM.PN.SRG ---
Subjective Subjective Doing much better today, though still requiring significant assistance to get out of bed/chair. In good spirits. Foot continues to feel better, much improved since revascularization, surgical site pain also more manageable today. Objective Data Objective Data A&O x 3, NAD IRR Resp non labored, no accessory muscle use RLE warm, compartments soft, biphasic PT Dressings C/D/I Vital Signs: Vital Signs Temp Pulse Resp BP Pulse Ox O2 Del Method O2 Flow Rate 98.0 F 99 18 109/64 95 Room Air 2 01/22/24 07:30 01/22/24 07:30 01/22/24 07:30 01/22/24 07:30 01/22/24 07:30 01/22/24 07:30 01/22/24 07:00 Oxygen Flow Rate (L/min) 2 Oxygen Delivery Method Room Air Weight: 153 lb 10.595 oz Body Mass Index (BMI) 27.2 Intake & Output: Intake and Output for Last 24 Hours 01/20/24 01/21/24 01/22/24 23:59 23:59 23:59 Intake Total 2829.00 / 2829.00 1390.75 / 1390.75 0 / 0 Output Total 575 / 575 1100 / 1100 150 / 150 Balance 2254.00 / 2254.00 290.75 / 290.75 -150 / -150 Lab / Micro Data 01/22/24 07:50 01/22/24 07:50 Labs: Laboratory Results - last 24 hr 01/22/24 07:50: WBC 7.9, RBC 2.65 L, Hgb 8.5 L, Hct 26.7 L, MCV 100.8 H, MCH 32.1 H, MCHC 31.8 L, RDW Std Deviation 60.8 H, RDW Coeff of Kate 16.4 H, Plt Count 177, MPV 11.3, Immature Gran % (Auto) 0.400, Neut % (Auto) 70.9 H, Lymph % (Auto) 15.3 L, Glenn % (Auto) 11.5 H, Eos % (Auto) 1.5, Baso % (Auto) 0.4, Absolute Neuts (auto) 5.6, Absolute Lymphs (auto) 1.20, Nucleated RBC % 0, Sodium 138, Potassium 3.5, Chloride 106, Carbon Dioxide 25.0, Anion Gap 7, BUN 20 H, Creatinine 0.90, Estim Creat Clear Calc 43.57, Est GFR (MDRD) Af Amer 76, Est GFR (MDRD) Non-Af 63, BUN/Creatinine Ratio 22.1 H, Glucose 98, Calcium 8.9 Assessment & Plan Assessment/Plan (1) Ischemic pain of right foot: PLAN: -vasc exam stable -cont lovenox therapeutic; will plan to convert to oral agent 1 month out from surgery if initial duplex satisfactory -improving mobility; is back and forth on whether home to to facility -ok to DC from vascular standpoint, will cont to follow
[2024-01-22] MEDS: 0.9% Saline Lock 10 ML Syringe IV (11:59)
[2024-01-22] MEDS: Acetaminophen 500 MG Tablet 1000 MG PO ×2 (15:00→19:53)
[2024-01-22] MEDS: Atorvastatin Calcium 40 MG Tablet PO (19:53)
[2024-01-23 02:30] VITALS: BP 117/73; PULSE 89; RESP 18; TEMP 36.6; O2SAT 99
[2024-01-23] MEDS: Acetaminophen 500 MG Tablet 1000 MG PO ×3 (04:47→20:11)
[2024-01-23 05:27] VITALS: BMI 27.3
[2024-01-23 07:58] LABS: Absolute Lymphocyte Count 0.84 X10^3/uL (0.83-4.51); Absolute Neutrophil Count 3.9 X10^3/uL (2.0-7.7); Basophil# 0.04 X10^3/uL; Basophil% 0.7 % (0-1); Eosinophil# 0.27 X10^3/uL; Eosinophils% 4.8 % (0-5); Hematocrit 28.5 % (37-47); Lymphocyte # 0.84 X10^3/ul (0.83-4.51); Lymphocyte % 14.8 % (19-41); Mean Corp Hgb Conc 31.6 g/dL (32-36); Mean Corpuscular Hgb 31.1 pg (27.0-32.0); Mean Corpuscular Volume 98.6 fL (81-99); Mean Platelet Vol. 10.4 fl (6.2-12.0); Monocyte# 0.62 X10^3/uL; NRBC Flagged by Analyzer 0 % (0-5); Neutrophil # 3.87 X10^3/uL (2.7-7.7); Neutrophil % 68.3 % (47-70); Platelet Count 240 K/mm3 (150-450); RBC Distribution Width SD 57.8 fl (35.1-43.9); Red Blood Count 2.89 M/mm3 (4.2-5.4); White Blood Count 5.7 K/mm3 (4.4-11.0)
[2024-01-23] MEDS: Ensure Plus High Protein 120 ML LIQUID PO (08:01)
[2024-01-23] MEDS: Glimepiride 2 MG Tablet PO (08:01)
[2024-01-23] MEDS: Gabapentin 100 MG Capsule 200 MG PO ×2 (08:01→17:13)
[2024-01-23 08:55] LABS: Anion Gap 10 (5-15); BUN 20 mg/dL (7-18); BUN/Creat Ratio 20.7 RATIO (10-20); Calcium,Total 9.5 mg/dL (8.5-10.1); Chloride 105 mmol/L (98-107); Creatinine, Serum 0.97 mg/dL (0.55-1.02); EST Glomerular Filtration Rate 58 mL/min (>60); Est Glom Filt Rate - Afr Amer 71 mL/min (>60); Estimated Creatinine Clearance 40.48 ml/min; Glucose 106 mg/dL (74-106); Potassium 3.5 mmol/L (3.5-5.1); Sodium Level 138 mmol/L (136-145)
[2024-01-23] MEDS: Tolterodine Tartrate 2 MG CAP.SA PO (10:20)
[2024-01-23] MEDS: Furosemide 40 MG Tablet PO ×2 (10:21→17:13)
[2024-01-23] MEDS: Pantoprazole Sodium 20 MG Tablet PO (10:22)
[2024-01-23 10:27] VITALS: BP 151/66; PULSE 97; RESP 16; TEMP 36.6; O2SAT 97
[2024-01-23] MEDS: Enoxaparin 80 MG/0.8 ML Syringe 70 MG SC ×2 (11:54→20:12)
[2024-01-23 13:42] VITALS: BP 153/74; PULSE 86; RESP 18; TEMP 36.6; O2SAT 100
--- NOTE | 2024-01-23 14:17 | CASEMGMT ---
Social Work- SW met with pt and spouse to discuss preferences at d/c. Pt and spouse report that [facility]. 2nd- [facility], 3rd- [facility]. SW completed referral to TCU. Pt added to list for opening. SW reached out to physician. Pt and spouse shared that they have been for 65 years, working 50 of those years together as well. Pt and spouse shared that they moved from [place] 2 years ago to be near their granddaughter and great-grandkids. SW will continue to follow for d/c planning. CHILANGO Medina
--- NOTE | 2024-01-23 14:47 | CASEMGMT ---
Addendum entered by Concetta Kennedy 01/24/24 09:43: [facility] has accepted. SW updated. Concetta Kennedy DC Planning Asst. Original Note: Discharge Planning Referral sent to [facility] via [facility]. Concetta Kennedy DC Planning Asst.
--- NOTE | 2024-01-23 15:09 | CHAPLAIN ---
Type of Pastoral Visit _x__ Initial Visit ___ Follow-up Visit ___ On-call Visit ___ General Patient Visit ___ Spiritual Assessment ___ Family Conference ___ Bereavement ___ Rapid Response ___ Code Blue ___ Other (describe below) Pastoral Care Referral From _x__ Patient ___ Family ___ Nurse ___ Physician ___ Rub[employer] Layer ___ Physical Science Professor ___ Other (describe below) Sacrament/Intervention _x__ Active listening ___ Anointing ___ Hinduism ___ Bereavement ___ Communion _x__ Emmy exploration ___ _x__ Life review _x__ Prayer ___ Reconciliation ___ Sacrament of Sick _x__ Supportive presence ___ Wedding ___ Other (describe below) Pastoral Comments patient stated that she has been waiting for days to see the table attendant (table attendant was unavailable the last several days); pt states her health situation and the pain she is experiencing; spouse is also in the room but he lets the patient talk mostly; pt gives life review and history of decision to move to [place]; family lives here and she describes the relationships in the family; pt is concerned about their family needs and lives; pt expresses distress that they moved here and it has been so hard; pt goal is to get home soon but admits she may need rehab first and that frustrates her along with her perception of slow healing process; pt is very spiritual and knowledgeable about her emmy; pt uses scriptures for comfort and she shows what she has been reading; pt is very talkative and as she does talk she also cries at various time; comforting words, listening ear, affirmation of her feelings and thoughts, presence, and prayers are given; pt expresses gratitude for support of the spiritual kind
[2024-01-23] MEDS: oxyCODONE 5 MG Tablet 10 MG PO ×2 (16:02→23:42)
--- NOTE | 2024-01-23 16:39 | PCM.PN.HOSP ---
Reason for Visit Reason for Visit: Right foot ischemia Subjective Subjective Patient is an 83-year-old white female who presented to the emergency department at [facility] on 01/18/2024 at the direction of her outpatient pediatric anesthesiologist who was concerned about right foot ischemia. She initially was seen a few days prior to presentation and thought to have cellulitis and started on oral antibiotics. She kept having tingling and pain in her right foot after a few days that worsened with ambulation. She denied any fever or chills or trauma to her foot. She evidently initially had a bulla. She will reported that her symptoms were worse with elevation and better when she dangles her foot. She does have a history of factor V Leiden but no personal history of thrombotic events and had been on Coumadin for about 20 years without issue. Her INR was 2.9 on the day of presentation but it did appear that she was briefly subtherapeutic on a previous admission for heart failure. She was admitted and placed on a heparin drip and vascular surgery was consulted. She was taken for an aortogram with right lower extremity runoff on 01/19/2024 at which time she was found to have popliteal occlusion show she was taken for right SFA popliteal bypass on the same day. She did have a few episodes of asymptomatic paroxysmal atrial fibrillation with RVR after surgery. Heart rates were as high as 130 but resolved with resuming her home metoprolol. She does have a known history of paroxysmal atrial fibrillation. Postoperatively she was transition to subcu Lovenox and this is recommended until she follows up as an outpatient and oral therapy can be decided upon by vascular surgery. Podiatry is following and feels that there is been significant improvement in her right foot after intervention. Plan is to allow her foot to demarcate and see what heals but she is aware that she may need debridement or possibly amputation in the future depending on healing. She was seen by physical and Occupational Therapy and they do feel she needs ongoing therapy at discharge. Patient has no specific complaints today. She does continue have pain and difficulty ambulating but is now agreeable to SNF placement. We did discuss the need for this to get her moving better prior to going back home. Objective Data Objective Data Vital Signs: Vital Signs Temp Pulse Resp BP Pulse Ox O2 Del Method O2 Flow Rate 97.8 F 86 18 153/74 H 100 Nasal Cannula 2 01/23/24 13:42 01/23/24 13:42 01/23/24 13:42 01/23/24 13:42 01/23/24 13:42 01/23/24 14:05 01/23/24 15:21 Oxygen Flow Rate (L/min) 2 Oxygen Delivery Method Nasal Cannula Weight: 69.9 kg Body Mass Index (BMI) 27.3 Intake & Output: Intake and Output for Last 24 Hours 01/21/24 01/22/24 01/23/24 23:59 23:59 23:59 Intake Total 1390.75 / 1390.75 500 / 500 280 / 280 Output Total 1100 / 1100 625 / 625 1175 / 1175 Balance 290.75 / 290.75 -125 / -125 -895 / -895 Lab / Micro Data 01/23/24 07:20 01/23/24 07:20 Labs: Laboratory Results - last 24 hr 01/19/24 17:07: Crossmatch See Detail 01/23/24 07:20: WBC 5.7, RBC 2.89 L, Hgb 9.0 L, Hct 28.5 L, MCV 98.6, MCH 31.1, MCHC 31.6 L, RDW Std Deviation 57.8 H, RDW Coeff of Kate 16.0 H, Plt Count 240, MPV 10.4, Immature Gran % (Auto) 0.400, Neut % (Auto) 68.3, Lymph % (Auto) 14.8 L, [place] % (Auto) 11.0 H, Eos % (Auto) 4.8, Baso % (Auto) 0.7, Absolute Neuts (auto) 3.9, Absolute Lymphs (auto) 0.84, Nucleated RBC % 0, Sodium 138, Potassium 3.5, Chloride 105, Carbon Dioxide 23.0, Anion Gap 10, BUN 20 H, Creatinine 0.97, Estim Creat Clear Calc 40.48, Est GFR (MDRD) Af Amer 71, Est GFR (MDRD) Non-Af 58 L, BUN/Creatinine Ratio 20.7 H, Glucose 106, Calcium 9.5 Physical Exam Const alert, oriented x3, no apparent distress and well nourished Constitutional Narrative: Overweight, elderly, white female, sitting up in bed, currently appears comfortable, does not appear toxic HEENT head/scalp atraumatic and moist oral mucous membranes Head and Scalp: normocephalic Resp normal respiratory effort, no retractions, no use of accessory muscles and clear to auscultation bilaterally Cardio regular rate, regular rhythm, S1 normal heart sound, S2 normal heart sound, no murmurs, no rub, no gallops and no clicks GI normal to inspection, nondistended, normoactive bowel sounds, soft to palpation and non-tender Extremity Extremity Narrative: Right foot with 2 separate distinct wounds covered in eschar, no significant drainage, no significant extending erythema, foot is tender to touch but does have good cap refill at 2+ Neuro oriented x3, moves all extremities, no focal motor deficits and no sensory deficits noted Neuro Narrative: Right foot is hypersensitive, generalized weakness noted but no focal deficits Speech: speech normal Psych Psych Narrative: Affect is slightly flattened patient seems somewhat anxious Assessment & Plan Assessment/Plan (1) Ischemic pain of right foot: PLAN: Plan Acute right lower extremity limb ischemia -Postop day 4 from right SFA-popliteal bypass -Continue subcu Lovenox for 1 month then vascular surgery to decide on oral anticoagulation and follow-up -Okay to discharge from vascular surgery standpoint Right lower extremity arterial insufficiency ulcers -Podiatry is following -No signs of infection -Podiatry to reevaluate and decide on any intervention required now or just outpatient follow-up -Continue pain medication as ordered -Continue bowel regimen History of factor V Leiden deficiency -Previously had been on Coumadin -Plan is for Lovenox at discharge with outpatient follow-up for transition to oral medication PAF -Has had few episodes of atrial fibrillation during her hospital course -Currently in sinus rhythm -Anticoagulation with subcu Lovenox -Continue home metoprolol Chronic anemia -Hemoglobin appears to be stable -Will continue to monitor with full anticoagulation DM-2 -Continue home oral agents GERD -Continue home PPI Chronic HFrEF -Echo done on 01/02/2024 shows an EF of 30 to 40% with moderate systolic LV dysfunction and segmental wall motion abnormality -Continue home goal-directed therapy with metoprolol, losartan, Aldactone, and Lasix -No current signs of acute decompensation Hyperlipidemia/essential hypertension -Continue home statin -Continue home antihypertensives Generalized weakness and debility due to acute illness -PT/OT recommending placement at discharge -Patient is agreeable and referral sent to [facility] DVT prophylaxis -Continue full anticoagulation with Lovenox CODE STATUS -Full code Charges/Coding Visit Charges Inpatient E&M: 24950 Subs Hosp L2
[2024-01-23 20:00] VITALS: BP 137/81; PULSE 98; RESP 18; TEMP 36.7; O2SAT 99
[2024-01-23] MEDS: Atorvastatin Calcium 40 MG Tablet PO (20:12)
[2024-01-24 02:00] VITALS: BP 148/74; PULSE 94; RESP 18; TEMP 36.7; O2SAT 99
[2024-01-24 04:21] LABS: Absolute Lymphocyte Count 1.02 X10^3/uL (0.83-4.51); Absolute Neutrophil Count 3.1 X10^3/uL (2.0-7.7); Basophil# 0.03 X10^3/uL; Basophil% 0.6 % (0-1); Eosinophil# 0.29 X10^3/uL; Eosinophils% 5.6 % (0-5); Hemoglobin 8.8 g/dL (12.0-15.0); Lymphocyte # 1.02 X10^3/ul (0.83-4.51); Lymphocyte % 19.6 % (19-41); Mean Corp Hgb Conc 31.4 g/dL (32-36); Mean Corpuscular Hgb 30.9 pg (27.0-32.0); Mean Corpuscular Volume 98.2 fL (81-99); Mean Platelet Vol. 9.2 fl (6.2-12.0); Monocyte# 0.71 X10^3/uL; Monocyte% 13.7 % (0-10); NRBC Flagged by Analyzer 0 % (0-5); Neutrophil # 3.13 X10^3/uL (2.7-7.7); Neutrophil % 60.1 % (47-70); Platelet Count 249 K/mm3 (150-450); RBC Distribution Width CV 15.9 % (11.6-14.6); RBC Distribution Width SD 57.8 fl (35.1-43.9); Red Blood Count 2.85 M/mm3 (4.2-5.4); White Blood Count 5.2 K/mm3 (4.4-11.0)
[2024-01-24 04:36] LABS: Anion Gap 5 (5-15); BUN 18 mg/dL (7-18); BUN/Creat Ratio 19.7 RATIO (10-20); Calcium,Total 9.1 mg/dL (8.5-10.1); Chloride 105 mmol/L (98-107); Creatinine, Serum 0.92 mg/dL (0.55-1.02); EST Glomerular Filtration Rate 62 mL/min (>60); Est Glom Filt Rate - Afr Amer 75 mL/min (>60); Estimated Creatinine Clearance 42.68 ml/min; Glucose 133 mg/dL (74-106); Magnesium 1.8 mg/dL (1.6-2.6); Phosphorus 3.5 mg/dL (2.5-4.9); Potassium 3.4 mmol/L (3.5-5.1); Sodium Level 138 mmol/L (136-145)
[2024-01-24] MEDS: Acetaminophen 500 MG Tablet 1000 MG PO ×3 (04:50→22:35)
[2024-01-24 07:40] VITALS: O2SAT 94
[2024-01-24 08:00] VITALS: BP 146/78; PULSE 72; RESP 16; TEMP 36.5; O2SAT 93
[2024-01-24] MEDS: Pantoprazole Sodium 20 MG Tablet PO (08:49)
[2024-01-24] MEDS: Glimepiride 2 MG Tablet PO (08:49)
[2024-01-24] MEDS: Tolterodine Tartrate 2 MG CAP.SA PO (08:50)
[2024-01-24] MEDS: Senna/Docusate Sodium 1 Tablet 2 TABLET PO (08:50)
[2024-01-24] MEDS: Furosemide 40 MG Tablet PO ×2 (08:50→17:25)
[2024-01-24] MEDS: oxyCODONE 5 MG Tablet 10 MG PO (08:50)
[2024-01-24] MEDS: Gabapentin 100 MG Capsule 200 MG PO ×2 (08:50→16:20)
[2024-01-24] MEDS: Enoxaparin 80 MG/0.8 ML Syringe 70 MG SC ×2 (08:51→22:36)
--- NOTE | 2024-01-24 12:43 | CASEMGMT ---
Addendum entered by Loreta Irizarry 01/24/24 13:12: Social Work SW let pt know that TCU accepted her and is starting precert. SW explained that [employer] tends to take a couple of days for a response. Pt states understanding. Pt states will let her know when he returns. [address] Original Note: Social Work SW spoke w/Cecilia in TCU, she can take pt and will start precert. SW sent a notification in [facility] to [place] to let them know. SW will let pt know, she is speaking w/physician at present. [address]
--- NOTE | 2024-01-24 13:00 | PN_ITS ---
Subjective Subjective Patient was seen today for follow up on right foot. She is resting in bed. Leg is on pillow. She relates right heel is a little sore. No new complaints. Objective Data Objective Data Vital Signs: Vital Signs Temp Pulse Resp BP Pulse Ox O2 Del Method O2 Flow Rate 97.7 F L 72 16 146/78 H 93 Nasal Cannula 2 01/24/24 08:00 01/24/24 08:00 01/24/24 08:00 01/24/24 08:00 01/24/24 08:00 01/24/24 08:00 01/24/24 08:00 Oxygen Flow Rate (L/min) 2 Oxygen Delivery Method Nasal Cannula Weight: 69.9 kg Body Mass Index (BMI) 27.3 Intake & Output: Intake and Output for Last 24 Hours 01/22/24 01/23/24 01/24/24 23:59 23:59 23:59 Intake Total 500 / 500 680 / 680 320 / 320 Output Total 625 / 625 1675 / 1675 500 / 500 Balance -125 / -125 -995 / -995 -180 / -180 Lab / Micro Data 01/24/24 04:15 01/24/24 04:15 Labs: Laboratory Results - last 24 hr 01/24/24 04:15: WBC 5.2, RBC 2.85 L, Hgb 8.8 L, Hct 28.0 L, MCV 98.2, MCH 30.9, MCHC 31.4 L, RDW Std Deviation 57.8 H, RDW Coeff of Kate 15.9 H, Plt Count 249, MPV 9.2, Immature Gran % (Auto) 0.400, Neut % (Auto) 60.1, Lymph % (Auto) 19.6, [place] % (Auto) 13.7 H, Eos % (Auto) 5.6 H, Baso % (Auto) 0.6, Absolute Neuts (auto) 3.1, Absolute Lymphs (auto) 1.02, Nucleated RBC % 0, Sodium 138, P otassium 3.4 L, Chloride 105, Carbon Dioxide 28.0, Anion Gap 5, BUN 18, Creatinine 0.92, Estim Creat Clear Calc 42.68, Est GFR (MDRD) Af Amer 75, Est GFR (MDRD) Non-Af 62, BUN/Creatinine Ratio 19.7, Glucose 133 H, Calcium 9.1, Phosphorus 3.5, Magnesium 1.8 Physical Exam Const alert, oriented x3 and no apparent distress Constitutional Narrative: Right foot with dry eschar dorsal 1st toe, also right 3rd toe with dry eschar to the dorsal mid to proximal aspect, there is small intact bulla dorsal base of 3rd toe which appears to be improving, there is superficial skin break down poterior right heel, there is no drainage, CFT < 3 seconds to all toes with good temperature, DP and PT pulse intact with doppler right foot, no crepitus, no maloder, no fluctuance. Left foot with no open lesions, no skin breakdown, no evidence of ischemia. Assessment & Plan Assessment/Plan (1) Ischemic pain of right foot: PLAN: Plan Evaluation performed. Right 3rd toe improving, right 1st toe eschar is stable. Continue to monitor and allow to demarcate and to see what heals - discussed with her she may need debridement or possibly toe amputation pending healing in the future Keep right foot clean and dry There is the start of superficial skin break down right heel - ordered foam offloading heel boots for her to wear when at rest, not for weightbearing From podiatry standpoint ok to progress to partial weightbearing on right foot and then to full weightbearing as tolerated Podiatry will continue to follow
--- NOTE | 2024-01-24 14:34 | WOUNDNOTE ---
wound photo: right foot
--- NOTE | 2024-01-24 14:34 | WOUNDNOTE ---
wound photo: right heel
[2024-01-24] MEDS: Ensure Plus High Protein 120 ML LIQUID PO (16:20)
[2024-01-24 16:36] VITALS: BP 144/79; PULSE 91; RESP 16; TEMP 36.9; O2SAT 97
[2024-01-24 17:46] VITALS: BP 115/70; PULSE 83; RESP 18; TEMP 36.3; O2SAT 95
[2024-01-24 20:26] VITALS: BP 148/88; PULSE 106; RESP 18; TEMP 37.1; O2SAT 98
[2024-01-24] MEDS: Atorvastatin Calcium 40 MG Tablet PO (22:35)
[2024-01-25] MEDS: oxyCODONE 5 MG Tablet 10 MG PO ×3 (02:00→21:08)
[2024-01-25 02:30] VITALS: BP 167/70; PULSE 78; RESP 18; TEMP 36.9; O2SAT 97
[2024-01-25] MEDS: tiZANidine HCl 2 MG Tablet 4 MG PO (03:02)
[2024-01-25] MEDS: Acetaminophen 500 MG Tablet 1000 MG PO ×3 (06:45→21:07)
[2024-01-25 07:04] LABS: Hematocrit 27.9 % (37-47); Mean Corp Hgb Conc 32.3 g/dL (32-36); Mean Corpuscular Hgb 31.1 pg (27.0-32.0); Mean Corpuscular Volume 96.5 fL (81-99); Mean Platelet Vol. 10.1 fl (6.2-12.0); Platelet Count 253 K/mm3 (150-450); RBC Distribution Width CV 15.9 % (11.6-14.6); RBC Distribution Width SD 56.8 fl (35.1-43.9); Red Blood Count 2.89 M/mm3 (4.2-5.4); White Blood Count 5.4 K/mm3 (4.4-11.0)
[2024-01-25 07:20] LABS: Anion Gap 6 (5-15); BUN 19 mg/dL (7-18); Calcium,Total 9.6 mg/dL (8.5-10.1); Chloride 103 mmol/L (98-107); EST Glomerular Filtration Rate 63 mL/min (>60); Est Glom Filt Rate - Afr Amer 76 mL/min (>60); Estimated Creatinine Clearance 43.63 ml/min; Glucose 152 mg/dL (74-106); Potassium 3.5 mmol/L (3.5-5.1); Sodium Level 137 mmol/L (136-145)
[2024-01-25 07:38] VITALS: O2SAT 97
[2024-01-25] MEDS: Enoxaparin 80 MG/0.8 ML Syringe 70 MG SC ×2 (08:25→21:08)
[2024-01-25] MEDS: Gabapentin 100 MG Capsule 200 MG PO ×2 (08:26→16:54)
[2024-01-25] MEDS: Glimepiride 2 MG Tablet PO (08:26)
[2024-01-25] MEDS: Tolterodine Tartrate 2 MG CAP.SA PO (08:27)
[2024-01-25] MEDS: Furosemide 40 MG Tablet PO ×2 (08:27→16:54)
[2024-01-25] MEDS: Senna/Docusate Sodium 1 Tablet 2 TABLET PO (08:27)
[2024-01-25] MEDS: Pantoprazole Sodium 20 MG Tablet PO (08:29)
[2024-01-25 08:32] VITALS: BP 113/71; PULSE 87; RESP 18; TEMP 36.6; O2SAT 99
--- NOTE | 2024-01-25 12:28 | CASEMGMT ---
Social Work Pt confirms she has completed a living will and health care POA naming , Ashish.? Pt notified that documents are not on file at [facility] and SW requested they be brought in for scanning into the EMR.? CHILANGO Medina
[2024-01-25 14:29] VITALS: BP 144/90; PULSE 98; RESP 18; TEMP 36.9; O2SAT 95
--- NOTE | 2024-01-25 14:57 | CHAPLAIN ---
Type of Pastoral Visit ___ Initial Visit _x__ Follow-up Visit ___ On-call Visit ___ General Patient Visit ___ Spiritual Assessment ___ Family Conference ___ Bereavement ___ Rapid Response ___ Code Blue ___ Other (describe below) Pastoral Care Referral From _x__ Patient ___ Family ___ Nurse ___ Physician ___ Business Intern ___ Construction Administrative Assistant ___ Other (describe below) Sacrament/Intervention _x__ Active listening ___ Anointing ___ Presybeterian ___ Bereavement ___ Communion _x__ Emmy exploration ___ ___ Life review _x__ Prayer ___ Reconciliation ___ Sacrament of Sick _x__ Supportive presence ___ Wedding ___ Other (describe below) Pastoral Comments patient and spouse together in the room; pt speaks of walking in the room today and seeing some progress with a decrease in pain; pt speaks of her coping of situation; pt expresses her emmy and then desire for a prayer again
--- NOTE | 2024-01-25 15:41 | CASEMGMT ---
Social Work- SW met with pt to provide support and check-in. SW updated that precert remains pending. Pt states no other needs. CHILANGO Medina
[2024-01-25] MEDS: Ensure Plus High Protein 120 ML LIQUID PO (16:53)
--- NOTE | 2024-01-25 17:20 | PN.HOSP_ITS ---
Reason for Visit Reason for Visit: Right foot ischemia Subjective Subjective No issues overnight. Patient no complaints. Feeling well. Understands plan of care for discharge once pre-CERT is obtained. Still no bowel movement however does not want to have any extra stool softeners at this time. Will try some prune juice. Objective Data Objective Data Vital Signs: Vital Signs Temp Pulse Resp BP Pulse Ox O2 Del Method O2 Flow Rate 98.4 F 98 18 144/90 H 95 Room Air 2 01/25/24 14:01/25/24 14:29 01/25/24 14:29 01/25/24 14:01/25/24 14:01/25/24 14:01/24/24 08:00 Oxygen Flow Rate (L/min) 2 Oxygen Delivery Method Room Air Weight: 69.9 kg Body Mass Index (BMI) 27.3 Intake & Output: Intake and Output for Last 24 Hours 01/23/24 01/24/24 01/25/24 23:59 23:59 23:59 Intake Total 680 / 680 320 / 320 700 / 700 Output Total 1675 / 1675 500 / 500 1000 / 1000 Balance -995 / -995 -180 / -180 -300 / -300 Lab / Micro Data 01/25/24 05:54 01/25/24 05:54 Labs: Laboratory Results - last 24 hr 01/25/24 05:54: WBC 5.4, RBC 2.89 L, Hgb 9.0 L, Hct 27.9 L, MCV 96.5, MCH 31.1, MCHC 32.3, RDW Std Deviation 56.8 H, RDW Coeff of Kate 15.9 H, Plt Count 253, MPV 10.1, Sodium 137, Potassium 3.5, Chloride 103, Carbon Dioxide 28.0, Anion Gap 6, BUN 19 H, Creatinine 0.90, Estim Creat Clear Calc 43.63, Est GFR (MDRD) Af Amer 76, Est GFR (MDRD) Non-Af 63, BUN/Creatinine Ratio 21.0 H, Glucose 152 H, Calcium 9.6 Physical Exam Const alert, oriented x3, no apparent distress, average body habitus and well nourished; Negative for healthy appearing Constitutional Narrative: Overweight, elderly, white female, sitting up in bed, currently appears comfortable, does not appear toxic, at bedside General Appearance: cooperative HEENT normocephalic, head/scalp atraumatic and moist oral mucous membranes Resp normal respiratory effort, normal air movement, no retractions, no use of accessory muscles and clear to auscultation bilaterally Cardio regular rate, regular rhythm, S1 normal heart sound, S2 normal heart sound, no murmurs, no rub, no gallops and no clicks GI normal to inspection, nondistended, normoactive bowel sounds, soft to palpation and non-tender Extremity Extremity Narrative: Dressing in place right lower extremity Neuro oriented x3, moves all extremities, no focal motor deficits and no sensory deficits noted Neuro Narrative: Right foot is hypersensitive, generalized weakness noted but no focal deficits Sensorium / Orientation: awake and alert Speech: speech normal Motor Exam: general weakness Psych affect normal Psych Narrative: Affect is slightly flattened patient seems somewhat anxious Appearance: appropriate Assessment & Plan Assessment/Plan (1) Ischemic pain of right foot: PLAN: Plan Acute right lower extremity limb ischemia -Postop day 4 from right SFA-popliteal bypass -Continue subcu Lovenox for 1 month then vascular surgery to decide on oral anticoagulation and follow-up -Okay to discharge from vascular surgery standpoint Right lower extremity arterial insufficiency ulcers -Podiatry is following -No signs of infection -Podiatry to reevaluate and decide on any intervention required now or just outpatient follow-up -Continue pain medication as ordered -Continue bowel regimen History of factor V Leiden deficiency -Previously had been on Coumadin -Plan is for Lovenox at discharge with outpatient follow-up for transition to oral medication PAF -Has had few episodes of atrial fibrillation during her hospital course -Currently in sinus rhythm -Anticoagulation with subcu Lovenox -Continue home metoprolol Chronic anemia -Hemoglobin appears to be stable -Will continue to monitor with full anticoagulation DM-2 -Continue home oral agents GERD -Continue home PPI Chronic HFrEF -Echo done on 01/02/2024 shows an EF of 30 to 40% with moderate systolic LV dysfunction and segmental wall motion abnormality -Continue home goal-directed therapy with metoprolol, losartan, Aldactone, and Lasix -No current signs of acute decompensation Hyperlipidemia/essential hypertension -Continue home statin -Continue home antihypertensives Generalized weakness and debility due to acute illness -PT/OT recommending placement at discharge -Patient is agreeable and referral sent to [facility] DVT prophylaxis -Continue full anticoagulation with Lovenox CODE STATUS -Full code Charges/Coding Visit Charges Inpatient E&M: 08901 Subs Hosp L2
[2024-01-25 20:28] VITALS: BP 139/79; PULSE 112; RESP 16; TEMP 36.7; O2SAT 99
[2024-01-25] MEDS: Atorvastatin Calcium 40 MG Tablet PO (21:07)
[2024-01-26 03:21] VITALS: BP 140/82; PULSE 59; RESP 15; TEMP 37; O2SAT 92
[2024-01-26] MEDS: oxyCODONE 5 MG Tablet 10 MG PO ×2 (05:57→18:06)
[2024-01-26] MEDS: Acetaminophen 500 MG Tablet 1000 MG PO ×3 (05:58→21:33)
[2024-01-26 06:00] VITALS: BMI 27.3
[2024-01-26 07:30] VITALS: O2SAT 93
[2024-01-26 08:05] VITALS: BP 141/81; PULSE 85; RESP 18; TEMP 36.7; O2SAT 93
[2024-01-26] MEDS: Senna/Docusate Sodium 1 Tablet 2 TABLET PO (08:06)
[2024-01-26] MEDS: Furosemide 40 MG Tablet PO ×2 (08:06→17:24)
[2024-01-26] MEDS: Ensure Plus High Protein 120 ML LIQUID PO ×2 (08:06→12:23)
[2024-01-26] MEDS: Glimepiride 2 MG Tablet PO (08:07)
[2024-01-26] MEDS: Tolterodine Tartrate 2 MG CAP.SA PO (08:07)
[2024-01-26] MEDS: Pantoprazole Sodium 20 MG Tablet PO (08:07)
[2024-01-26] MEDS: Gabapentin 100 MG Capsule 200 MG PO ×2 (08:07→17:24)
[2024-01-26] MEDS: Enoxaparin 80 MG/0.8 ML Syringe 70 MG SC ×2 (08:08→21:33)
--- NOTE | 2024-01-26 11:26 | PN.SURG_ITS ---
Subjective Subjective Patient was seen this morning sitting up in bedside chair. She reports she is overall doing much better. Her left lower extremity pain remains much improved from prior to surgery, still some pain into the left foot. She is awaiting pre- CERT for discharge to TCU for ongoing rehab prior to going home. Objective Data Objective Data Vital Signs: Vital Signs Temp Pulse Resp BP Pulse Ox O2 Del Method O2 Flow Rate 98.1 F 85 18 141/81 H 93 Room Air 2 01/26/24 08:05 01/26/24 08:05 01/26/24 08:05 01/26/24 08:05 01/26/24 08:05 01/26/24 08:05 01/24/24 08:00 Oxygen Flow Rate (L/min) 2 Oxygen Delivery Method Room Air Weight: 154 lb 9 oz Body Mass Index (BMI) 27.3 Intake & Output: Intake and Output for Last 24 Hours 01/24/24 01/25/24 01/26/24 23:59 23:59 23:59 Intake Total 320 / 320 940 / 940 350 / 350 Output Total 500 / 500 1000 / 1000 800 / 800 Balance -180 / -180 -60 / -60 -450 / -450 Lab / Micro Data 01/25/24 05:54 01/25/24 05:54 Physical Exam Const alert and oriented x3 General Appearance: cooperative HEENT normocephalic, head/scalp atraumatic, hearing grossly normal bilaterally, external ears normal and external nose normal Eyes EOMs intact bilaterally General Eye: normal appearance of both eyes Neck General: normal visual inspection and trachea midline Resp normal respiratory effort, no retractions and no use of accessory muscles Effort and Inspection: able to speak in complete sentences Extremity Extremity Narrative: Right foot with bulky dry dressing in place. Right thigh incision site with skin glue intact. No dehiscence, drainage, bleeding, focal edema, erythema. The incision is well-healing. There is mild ecchymosis at the proximal portion of the incision, this is resolving. Right calf incision site with skin glue intact. No dehiscence, drainage, bleeding, focal edema, erythema. The incision is well-healing. There is also mild ecchymosis at the proximal portion of this incision which is resolving as well. Neuro oriented x3, CN's II-XII intact bilaterally, moves all extremities and no focal motor deficits Psych mental status grossly normal Appearance: grossly normal Attitude: engaged Activity / Motor Behavior: appropriate eye contact Speech: normal speech Mood & Affect: euthymic mood Assessment & Plan Assessment/Plan (1) Ischemic pain of right foot: PLAN: Plan remains for Lovenox at discharge. Plan for arterial duplex and AYAN for routine surveillance imaging in the next 2 to 3 weeks. She is now 1 week postop so I did remove the overlying silver Mepilex dressings from the right thigh and calf incision sites. Both incision sites appear well- healing. At this point, they may be left open to air as the skin glue will continue to protect. Okay for a shower, no submerging the sites in water for 3 weeks. Plan is for TCU at discharge once pre-CERT is approved. Will plan to see her either in TCU or as an outpatient in the office in 2 to 3 weeks.
[2024-01-26 15:00] VITALS: BP 153/81; PULSE 96; RESP 18; TEMP 36.8; O2SAT 92
--- NOTE | 2024-01-26 15:53 | PCM.PN.HOSP ---
Reason for Visit Reason for Visit: Right foot pain Subjective Subjective No complaints. Patient states she has been able to move around better and putting more weight on her foot and tolerating it. Anxious to go to rehab. States Dr. Smith came up and introduced himself and she is excited about going to TCU once insurance company approves stay. Objective Data Objective Data Vital Signs: Vital Signs Temp Pulse Resp BP Pulse Ox O2 Del Method O2 Flow Rate 98.2 F 96 18 153/81 H 92 Room Air 2 01/26/24 15:00 01/26/24 15:00 01/26/24 15:00 01/26/24 15:00 01/26/24 15:00 01/26/24 15:00 01/24/24 08:00 Oxygen Flow Rate (L/min) 2 Oxygen Delivery Method Room Air Weight: 70.108 kg Body Mass Index (BMI) 27.3 Intake & Output: Intake and Output for Last 24 Hours 01/24/24 01/25/24 01/26/24 23:59 23:59 23:59 Intake Total 320 / 320 940 / 940 350 / 350 Output Total 500 / 500 1000 / 1000 800 / 800 Balance -180 / -180 -60 / -60 -450 / -450 Lab / Micro Data 01/25/24 05:54 01/25/24 05:54 Physical Exam Const alert, oriented x3, no apparent distress, average body habitus and well nourished; Negative for healthy appearing Constitutional Narrative: Overweight, elderly, white female, sitting up in a chair at the bedside, currently appears comfortable, does not appear toxic HEENT normocephalic, head/scalp atraumatic and hearing grossly normal bilaterally Neuro oriented x3 and moves all extremities Speech: speech normal Psych affect normal Psych Narrative: Eye contact is good and patient interacts appropriately Appearance: appropriate Assessment & Plan Assessment/Plan (1) Ischemic pain of right foot: PLAN: Plan Acute right lower extremity limb ischemia -Postop day 6 from right SFA-popliteal bypass -Continue subcu Lovenox for 1 month then vascular surgery to decide on oral anticoagulation and follow-up -Okay to discharge from vascular surgery standpoint Right lower extremity arterial insufficiency ulcers -Podiatry is following -No signs of infection -Podiatry to reevaluate and decide on any intervention required now or just outpatient follow-up -Continue pain medication as ordered -Continue bowel regimen History of factor V Leiden deficiency -Previously had been on Coumadin -Plan is for Lovenox at discharge with outpatient follow-up for transition to oral medication PAF -Has had few episodes of atrial fibrillation during her hospital course -Currently in sinus rhythm -Anticoagulation with subcu Lovenox -Continue home metoprolol Chronic anemia -Hemoglobin appears to be stable -Will continue to monitor with full anticoagulation DM-2 -Continue home oral agents GERD -Continue home PPI Chronic HFrEF -Echo done on 01/02/2024 shows an EF of 30 to 40% with moderate systolic LV dysfunction and segmental wall motion abnormality -Continue home goal-directed therapy with metoprolol, losartan, Aldactone, and Lasix -No current signs of acute decompensation Hyperlipidemia/essential hypertension -Continue home statin -Continue home antihypertensives Generalized weakness and debility due to acute illness -PT/OT recommending placement at discharge DVT prophylaxis -Continue full anticoagulation with Lovenox CODE STATUS -Full code Disposition: Patient is medically stable for discharge since 01/24/2024. Patient has been accepted by TCU but awaiting pre-CERT from [employer]. Charges/Coding Visit Charges Inpatient E&M: 81267 Subs Hosp L1
[2024-01-26 18:05] VITALS: BP 147/77; PULSE 92; RESP 18; TEMP 36.6; O2SAT 96
[2024-01-26 21:19] VITALS: BP 146/73; PULSE 106; RESP 20; TEMP 37; O2SAT 97
[2024-01-26] MEDS: Atorvastatin Calcium 40 MG Tablet PO (21:34)
[2024-01-27 03:22] VITALS: BP 149/114; PULSE 75; RESP 20; TEMP 36.5; O2SAT 96
[2024-01-27] MEDS: oxyCODONE 5 MG Tablet 10 MG PO ×2 (03:38→12:55)
[2024-01-27] MEDS: Acetaminophen 500 MG Tablet 1000 MG PO (05:45)
[2024-01-27 05:49] VITALS: BMI 27.3
[2024-01-27 07:38] VITALS: O2SAT 92
[2024-01-27] MEDS: Senna/Docusate Sodium 1 Tablet 2 TABLET PO (08:19)
[2024-01-27] MEDS: Enoxaparin 80 MG/0.8 ML Syringe 70 MG SC (08:19)
[2024-01-27] MEDS: Tolterodine Tartrate 2 MG CAP.SA PO (08:19)
[2024-01-27] MEDS: Glimepiride 2 MG Tablet PO (08:19)
[2024-01-27] MEDS: Pantoprazole Sodium 20 MG Tablet PO (08:19)
[2024-01-27] MEDS: Furosemide 40 MG Tablet PO (08:20)
[2024-01-27] MEDS: Gabapentin 100 MG Capsule 200 MG PO (08:22)
[2024-01-27 09:15] VITALS: BP 136/72; PULSE 84; RESP 18; TEMP 36.7; O2SAT 94
--- NOTE | 2024-01-27 11:10 | PCM.DC.SUM ---
Providers Date of Admission: 01/18/24 Date of Discharge: 01/27/24 Primary Care Physician: Dr. Kendra Lucio MD Consultations 01/18/24 16:09 Consult: Vascular Surgery Routine Consulting Provider: Shaan Rojas Reason for Consult: right leg ischemia EMERGENT Consult: No Notified: Yes Date Notified: 01/18/24 Time Notified: 16:11 Method of Notification: ED Physician Initiated 01/20/24 14:27 Consult: Podiatry Routine Consulting Provider: Eugene Blanca Reason for Consult: R toe ulcerations EMERGENT Consult: No Notified: Yes Date Notified: 01/20/24 Time Notified: 14:27 Method of Notification: Text 01/24/24 11:46 Consult: Onc/Wound/tobacco cloth reclaimer Routine Comment: Reason For Visit: RIGHT LOWER LIMB ISCHEMIA Diagnosis Discharge Diagnosis (1) Ischemic pain of right foot: Status: Acute Code(s): M79.671 - Pain in right foot; I99.8 - Other disorder of circulatory system Medications at Discharge Home Medications omeprazole 20 mg capsule,delayed release 20 mg PO DAILY reflux 09/23/23 oxybutynin chloride 10 mg tablet,extended release 24 hr 10 mg PO DAILY bladder 09/23/23 simvastatin 80 mg tablet 80 mg PO QHS cholesterol 09/23/23 warfarin 2 mg tablet 2 mg PO DAILY blood thinner 09/23/23 fluticasone propionate 50 mcg/actuation nasal spray,suspension 2 spray intranasal DAILY PRN nasal congestion 12/31/23 glimepiride 2 mg tablet 2 mg PO DAILY dm 12/31/23 tizanidine 4 mg tablet 4 mg PO QHS PRN PRN muscle spasm 12/31/23 furosemide 40 mg tablet 40 mg PO BIDLX 30 days #60 tabs 01/03/24 losartan 50 mg tablet 50 mg PO DINNER 30 days #30 tabs 01/03/24 metoprolol succinate 50 mg tablet,extended release 24 hr 50 mg PO DAILY 1 month #30 tabs 01/03/24 spironolactone 25 mg tablet 12.5 mg (1/2 x 25 mg) PO DAILY #30 tabs 01/03/24 enoxaparin 80 mg/0.8 mL subcutaneous syringe (Lovenox) 70 mg (0.7 mL) subcut Q12H 30 days #42 mL 01/20/24 acetaminophen 500 mg tablet 1,000 mg (2 x 500 mg) PO Q8 #0 tabs 01/27/24 food supplemt, lactose-reduced 0.08 gram-1.5 kcal/mL oral liquid (Ensure Plus High Protein) 120 ml PO TIDCM #0 mL 01/27/24 gabapentin 100 mg capsule 200 mg (2 x 100 mg) PO BIDCM #0 caps 01/27/24 oxycodone 5 mg tablet 10 mg (2 x 5 mg) PO Q4H PRN PRN Pain Score 4-10 1 day #6 tabs 01/27/24 sennosides 8.6 mg-docusate sodium 50 mg tablet (Stimulant Laxative Plus) 2 tab PO DAILY #0 tabs 01/27/24 Hospital Course Operations - (SFA-popliteal bypass surgery) Procedures EKG and - (CT abdomen and pelvis) Summary of Care Provided Minutes Spent on Discharge: 38 Hospital Course: Mrs. Braun is an 83-year-old white female who presented to the emergency department at [facility] on 01/18/2024 at the direction of her outpatient advertising assistant who was concerned about right foot ischemia. She initially was seen a few days prior to presentation and thought to have cellulitis and started on oral antibiotics. She kept having tingling and pain in her right foot after a few days that worsened with ambulation. She denied any fever or chills or trauma to her foot. She evidently initially had a bulla. She will reported that her symptoms were worse with elevation and better when she dangles her foot. She does have a history of factor V Leiden but no personal history of thrombotic events and had been on Coumadin for about 20 years without issue. Her INR was 2.9 on the day of presentation but it did appear that she was briefly subtherapeutic on a previous admission for heart failure. She was admitted and placed on a heparin drip and vascular surgery was consulted. She was taken for an aortogram with right lower extremity runoff on 01/19/2024 at which time she was found to have popliteal occlusion show she was taken for right SFA popliteal bypass on the same day. She did have a few episodes of asymptomatic paroxysmal atrial fibrillation with RVR after surgery. Heart rates were as high as 130 but resolved with resuming her home metoprolol. She does have a known history of paroxysmal atrial fibrillation. Postoperatively she was transition to subcu Lovenox and this is recommended until she follows up as an outpatient and oral therapy can be decided upon by vascular surgery. Vascular surgery would like to see her 2 to 3 weeks after discharge from acute hospitalization. Postoperatively, she was also reevaluated by podiatry no surgical intervention was recommended at this time however he would like to continue to monitor and allow it to further demarcate and see what heals and what does not. It was discussed that she may need debridement or possibly toe amputation depending on her healing in the future. She also was noted to have some superficial skin breakdown on her right heel and we do need to continue to offload the right heel. Boots were ordered however she did not tolerate this well and did better with her foot elevated with a pillow underneath her calf. Her postoperative incisions are healing well. She was evaluated by physical and Occupational Therapy and they did feel she would benefit from ongoing rehab at the time of discharge. She desired to go to the transitional care unit where she was accepted and pre-CERT was obtained on 01/27/2024. She was discharged there in stable condition. Discharge diagnoses: Acute right lower extremity limb ischemia postop day 7 from a right SFA-popliteal bypass Right lower extremity arterial insufficiency ulcers History of factor V Leiden deficiency Paroxysmal atrial fibrillation Chronic anemia DM-2 GERD Chronic HFrEF Hyperlipidemia Essential hypertension Generalized weakness and debility due to acute illness Physical Exam Const alert, oriented x3, no apparent distress, average body habitus, no limitations and well nourished; Negative for healthy appearing Constitutional Narrative: Overweight, elderly, white female, sitting up in a chair at the bedside reclined, currently appears comfortable, does not appear toxic, watching television, at bedside General Appearance: cooperative, comfortable, well kempt and well developed Exam Limitations: no limitations Nutritional Appearance: overweight HEENT normocephalic, head/scalp atraumatic, hearing grossly normal bilaterally and moist oral mucous membranes HEENT Narrative: Mallampati 3, no thrush Eyes PERRL, EOMs intact bilaterally and conjunctivae normal Eyes Narrative: No scleral icterus Neck no lymphadenopathy and supple Neck Narrative: Trachea midline, no thyroid enlargement Resp normal respiratory effort, normal air movement, no retractions, no use of accessory muscles and clear to auscultation bilaterally Cardio regular rate, regular rhythm, S1 normal heart sound, S2 normal heart sound, no murmurs, no rub, no gallops and no clicks GI normal to inspection, nondistended, normoactive bowel sounds, soft to palpation, non-tender and non-distended Extremity Extremity Narrative: Dressing in place right lower extremity, well-healing incisions on medial distal and proximal right lower extremity, ecchymosis improving, no significant edema, clubbing, or cyanosis Skin No no rashes or lesions noted, No no wounds, skin turgor normal and no jaundice Skin Narrative: Ulcers on dorsum of right foot with eschar noted Neuro oriented x3, CN's II-XII intact bilaterally, moves all extremities, no focal motor deficits and no sensory deficits noted Neuro Narrative: Generalized weakness noted Speech: speech normal Psych affect normal Psych Narrative: Eye contact is good and patient interacts appropriately, extremely pleasant Weight / BMI Weight Weight: 70.09 kg Body Mass Index (BMI) 27.3 ABG / Lab / Microbiology Data 01/25/24 05:54 01/25/24 05:54 Meaningful Use Info Meaningful Use Meaningful Use Diagnoses (Choose all that apply): None applicable Ischemic Stroke Statin Dosing Therapy Reference: STATIN DOSE THERAPY REFERENCE: * Patients > 75 years receive moderate or high dose statin therapy. * Patients 75 years or YOUNGER should receive HIGH intensity statin dose unless contraindicated. You will be required to document reason for non-treatment if statin daily dose does not meet guidelines. HIGH DOSE STATIN THERAPY DAILY Atorvastatin > than or = to 40 mg Rosuvastatin > than or = to 20 mg Amlodipine + Atorvastatin > than or = to 2.5/40 mg Ezetimibe + Simvastatin 10/80 mg Simvastatin 80mg Discharge Plan Admission Admit Date/Time: 01/18/24 12:27 Primary Reason for Your Visit: Right foot wounds Attending Provider: Beverly Wilhelm Primary Care Provider: Kendra Lucio Consulting Providers: Shaan Rojas; Eugene Blanca; Ivett Johnson Discharge Orders/Prescriptions Prescriptions: New enoxaparin [Lovenox] 80 mg/0.8 mL syringe 70 mg subcut Q12H 30 Days Qty: 42 0RF sennosides-docusate sodium [Stimulant Laxative Plus] 8.6-50 mg Tablet 2 tab PO DAILY Qty: 0 0RF acetaminophen 500 mg Tablet 1,000 mg PO Q8 Qty: 0 0RF gabapentin 100 mg Capsule 200 mg PO BIDCM Qty: 0 0RF oxycodone 5 mg Tablet 10 mg PO Q4H PRN PRN (Reason: Pain Score 4-10) 1 Days Qty: 6 0RF Ensure Plus High Protein 0.08 gram-1.5 kcal/mL Liquid 120 ml PO TIDCM Qty: 0 0RF Continued omeprazole 20 mg capsule,delayed release(DR/EC) 20 mg PO DAILY oxybutynin chloride 10 mg tablet extended release 24hr 10 mg PO DAILY simvastatin 80 mg tablet 80 mg PO QHS fluticasone propionate 50 mcg/actuation spray,suspension 2 spray INTRANASAL DAILY PRN (Reason: nasal congestion) glimepiride 2 mg tablet 2 mg PO DAILY tizanidine 4 mg tablet 4 mg PO QHS PRN PRN (Reason: muscle spasm) losartan 50 mg Tablet 50 mg PO DINNER 30 Days Qty: 30 2RF furosemide 40 mg Tablet 40 mg PO BIDLX 30 Days Qty: 60 2RF metoprolol succinate 50 mg tablet extended release 24 hr 50 mg PO DAILY 30 Days Qty: 30 2RF spironolactone 25 mg tablet 12.5 mg PO DAILY Qty: 30 2RF Rx Instructions: Hold for serum potassium more than 5.0 Held warfarin 2 mg tablet 2 mg PO DAILY Hold Instructions: Until instructed otherwise Rx Instructions: Pt takes 2mg everyday except for Wednesdays she takes 1 mg Discontinued cephalexin 500 mg capsule 500 mg PO Q6 Qty: 40 0RF Referrals / Follow Up: Shaan Rojas MD [Med Staff - Active Staff] - See Referral Note (2 to 3 weeks after discharge from acute facility) Eugene Blanca DPM [Med Staff - Active Staff] - Within 1 Week Kendra Lucio MD [Primary Care Provider] - Within 1 Week (After discharge from TCU) Disposition Disposition (needs filled in before D/C Order can be placed): [facility] Facility Charges/Coding Visit Charges Inpatient E&M: 19575 SNF Disch >30 Min
--- NOTE | 2024-01-27 11:26 | PCM.TXEXTCAR ---
Diet Diet Order/Speech Therapy: 01/20/24 08:26 Diet: Cardiac - Heart Healthy Routine Orders/Code Status Suppository Frequency: Daily PRN O2 Frequency: PRN Keep PO Greater than or Equal to (%): 89 Routine Lab Work: CBC (3 to 5 days) and BMP (3 to 5 days) Code Status: Full Code Wound(s) rt foot: Wound Type: Stasis Ulcer R thigh: Wound Type: Surgical Incision Right calf: Wound Type: Surgical Incision right great toe: Wound Type: dry black eschar Dressing Change: betadine with dry dressing right third toe: Wound Type: dry black eschar Dressing Change: betadine with dry dressing right heel: Wound Type: Pressure Injury Dressing Change: betadine with dry well padded dressing Suggestions for Active Care Change Position every (hours): 2 Hours to sit in a chair: 2 Times a day to sit in chair: 3 Therapies Weight Bearing: Weight bearing as tolerated Extremity Affected:: Right Lower Physical Therapy: Eval and Treat Occupational Therapy: Eval and Treat Problem/Diagnosis (1) Ischemic pain of right foot: Status: Acute Code(s): M79.671 - Pain in right foot; I99.8 - Other disorder of circulatory system Allergies/Procedures Done in Hospital Allergies benazepril (From Lotensin) Allergy (Mild, Verified 01/18/24 10:03) DOESNT REMEMBER quinapril (From Accupril) Allergy (Mild, Verified 01/18/24 10:03) UNKNOWN Sulfa (Sulfonamide Antibiotics) Allergy (Mild, Verified 01/18/24 10:03) Hives verapamil (From Calan) Allergy (Mild, Verified 01/18/24 10:03) UNKNOWN Procedures: EKG and - (CTA pelvis and abdomen) Type of Care/Length of Stay Estimated LOS: Convalescent Care Less Than 30 days Type of Care Needed: Skilled Rehab Potential: Good Prognosis: Good Additional Orders/Day of Discharge Day of Discharge: 01/27/24 Dietary and Speech Recommendations Dietitian Recommendations/Changes: Continue Cardiac diet as ordered Continue 4 oz ensure plus high protein w/ mepass to help with skin healing and to maintain stable weight while acutely ill. Monitor gluc levels and consider diet change to Consistent CHO if gluc >175-200. Follow Up Care Please follow up with your Primary Care Physician in: 1 week after discharge from TCU Please Follow Up With: Eugene Blanca DPM When: 1 week Please Follow Up With: Shaan Rojas MD When: 2 to 3 weeks after discharge from acute hospital Discharge Plan Admission Admit Date/Time: 01/18/24 12:27 Primary Reason for Your Visit: Right foot wounds Attending Provider: Beverly Wilhelm Primary Care Provider: Kendra Lucio Consulting Providers: Shaan Rojas; Eugene Blanca; Ivett Johnson Discharge Orders/Prescriptions Prescriptions: New enoxaparin [Lovenox] 80 mg/0.8 mL syringe 70 mg subcut Q12H 30 Days Qty: 42 0RF sennosides-docusate sodium [Stimulant Laxative Plus] 8.6-50 mg Tablet 2 tab PO DAILY Qty: 0 0RF acetaminophen 500 mg Tablet 1,000 mg PO Q8 Qty: 0 0RF gabapentin 100 mg Capsule 200 mg PO BIDCM Qty: 0 0RF oxycodone 5 mg Tablet 10 mg PO Q4H PRN PRN (Reason: Pain Score 4-10) 1 Days Qty: 6 0RF Ensure Plus High Protein 0.08 gram-1.5 kcal/mL Liquid 120 ml PO TIDCM Qty: 0 0RF Continued omeprazole 20 mg capsule,delayed release(DR/EC) 20 mg PO DAILY oxybutynin chloride 10 mg tablet extended release 24hr 10 mg PO DAILY simvastatin 80 mg tablet 80 mg PO QHS fluticasone propionate 50 mcg/actuation spray,suspension 2 spray INTRANASAL DAILY PRN (Reason: nasal congestion) glimepiride 2 mg tablet 2 mg PO DAILY tizanidine 4 mg tablet 4 mg PO QHS PRN PRN (Reason: muscle spasm) losartan 50 mg Tablet 50 mg PO DINNER 30 Days Qty: 30 2RF furosemide 40 mg Tablet 40 mg PO BIDLX 30 Days Qty: 60 2RF metoprolol succinate 50 mg tablet extended release 24 hr 50 mg PO DAILY 30 Days Qty: 30 2RF spironolactone 25 mg tablet 12.5 mg PO DAILY Qty: 30 2RF Rx Instructions: Hold for serum potassium more than 5.0 Held warfarin 2 mg tablet 2 mg PO DAILY Hold Instructions: Until instructed otherwise Rx Instructions: Pt takes 2mg everyday except for Wednesdays she takes 1 mg Discontinued cephalexin 500 mg capsule 500 mg PO Q6 Qty: 40 0RF Referrals / Follow Up: Shaan Rojas MD [Med Staff - Active Staff] - See Referral Note (2 to 3 weeks after discharge from acute facility) Eugene Blanca DPM [Med Staff - Active Staff] - Within 1 Week Kendra Lucio MD [Primary Care Provider] - Within 1 Week (After discharge from TCU) Disposition Disposition (needs filled in before D/C Order can be placed): [facility]
--- NOTE | 2024-01-27 11:26 | CASEMGMT ---
Social Work- Pt received precert. Physician notified. SW faxed documentation to TCU. Pt and pt spouse agreeable to discharge plan. Bedside nurse advised of d/c. CHILANGO Medina
[2024-01-27] MEDS: Ensure Plus High Protein 120 ML LIQUID PO (11:31)
[2024-01-27 12:50] VITALS: BP 138/77; PULSE 97; RESP 18; TEMP 36.8; O2SAT 95
== END 2024-01-27 14:18 | disposition skilled nursing facility (03) | DRG 253 ==
LOC: ED 12:09 → PCU 12:41 → ICU 01-20 04:10 → MS2 01-24 07:07 → MS3 01-24 17:23
PROVIDERS: Family Medicine; Surgery Trauma Surgery; Admitting Provider Student in an Organized Health Care Education/Training Program; Emergency Provider Emergency Medicine; PCP Internal Medicine; Visit Provider Internal Medicine
PROC: 041K0JL Bypass Right Femoral Artery to Popliteal Artery with Synthetic Substitute, Open Approach (ICD-10-PCS; principal; 2024-01-19 18:00)
DX: I70.235 Atherosclerosis of native arteries of right leg with ulceration of other part of foot (principal); I74.3 Embolism and thrombosis of arteries of the lower extremities; D68.2 Hereditary deficiency of other clotting factors; I96 Gangrene, not elsewhere classified; I50.22 Chronic systolic (congestive) heart failure; I70.92 Chronic total occlusion of artery of the extremities; E11.621 Type 2 diabetes mellitus with foot ulcer; I11.0 Hypertensive heart disease with heart failure; D64.9 Anemia, unspecified; E11.51 Type 2 diabetes mellitus with diabetic peripheral angiopathy without gangrene; I48.0 Paroxysmal atrial fibrillation; L97.519 Non-pressure chronic ulcer of other part of right foot with unspecified severity; E86.0 Dehydration; E11.65 Type 2 diabetes mellitus with hyperglycemia; E78.5 Hyperlipidemia, unspecified; K21.9 Gastro-esophageal reflux disease without esophagitis; R53.1 Weakness; R53.81 Other malaise; Z79.01 Long term (current) use of anticoagulants; Z79.84 Long term (current) use of oral hypoglycemic drugs; Z79.899 Other long term (current) drug therapy
CPT/HCPCS: 36200; 36245; 36415; 75625; 75635; 75710; 76937; 80048; 83735; 84100; 85025; 85027; 85347; 85610; 85730; 86850; 86900; 86901; 86920; 86922; 93005; 94668; 97110; 97116; 97163; 97166; 97530; 97535; 99152; 99153; 99252; 99285; A4648; C1760; C1769; C1887; C1894; J7040; J7120; Q9967; A4216; G0463; J2405

== ENCOUNTER 2024-01-27 14:24 | Inpatient (IN) | payer MEDICARE, SELFPAY ==
[2024-01-27 14:35] VITALS: BP 126/83; PULSE 109; RESP 18; TEMP 35.9; O2SAT 97; BMI 26.1
[2024-01-27 14:53] VITALS: RESP 16
[2024-01-27] MEDS: Acetaminophen 500 MG Tablet 1000 MG PO (15:40)
--- NOTE | 2024-01-27 16:58 | HP.PCM_ITS ---
[facility] - General General Date of Admission: 01/27/24 Date of Service: 01/27/24 Chief Complaint: Generalized weakness/status post SFA-popliteal bypass surgery HPI Narrative JAROD PRITCHARD, is a 83 F With a past medical history of atrial fibrillation, factor V Leiden, chronic anticoagulation, allergic rhinitis, diabetes mellitus type 2, hypertension, congestive heart failure and GERD who presented to the ED at [facility] on 01/18/2024 at the advice of her electric blanket packer over concern for an ischemic right foot/leg. She had recently been placed on antibiotics for suspected cellulitis of the right leg. She was complaining of tingling and pain in the right foot that was worse with ambulation and with elevation. Prior to her development of rest pain she had right calf claudication after being diuresed for a new diagnosis of congestive heart failure. While in the hospital for tx of CHF she was briefly subtherapeutic on INR. Dr. Shaan Rojas was consulted from vascular surgery and ordered a CTA of the abdominal aorta and bilateral lower extremities. The CTA showed short segment right popliteal occlusion with mixed dense calcification with soft/acute appearance. She was placed on a heparin drip and warfarin was discontinued. Endovascular attempts to cross the occlusion failed and she was taken to the OR on 01/19/2024 for a right SFA?popliteal bypass. Postoperative complications included paroxysmal atrial fibrillation with RVR. This resolved with resuming her home metoprolol. Postoperatively she was transition from warfarin to subcutaneous Lovenox and will continue this until she follows up as an outpatient and oral therapy can be decided upon by vascular surgery. She was followed by podiatry in the hospital and no surgical intervention was undertaken. She may in the future need debridement or possibly toe amputation but, the wound is being allowed to demarcate. She was transferred to the TCU/SNF at [facility] on 01/27/24 for strengthening/rehabilitation prior to returning home. Echocardiogram done on 12/31/2023 showed a moderately dilated left ventricle with 35 to 40% ejection fraction. Right ventricular systolic function was normal. The left atrium was moderately dilated. There was mild aortic valve stenosis and a small pericardial effusion. Recent hemoglobin A1c was 6.8% Recent TSH normal Recent iron saturation was 12.6% with a ferritin of 247. She is not on an iron supplement. No Hemoccult stool is been checked. Chronically on pantoprazole for GERD. [facility] Medical History Prolonged QT interval Elevated blood pressure reading without diagnosis of hypertension Dilated cardiomyopathy Factor V Leiden Anxiety Hypokalemia Acute hypoxemic respiratory failure CHF (congestive heart failure) Home Medications ?Medication ?Instructions ?Recorded ?Last Taken ?Type omeprazole 20 mg capsule,delayed 20 mg PO DAILY reflux 09/23/23 01/27/24 History release oxybutynin chloride 10 mg 10 mg PO DAILY bladder 09/23/23 01/27/24 History tablet,extended release 24 hr simvastatin 80 mg tablet 80 mg PO QHS cholesterol 09/23/23 01/26/24 History warfarin 2 mg tablet 2 mg PO DAILY blood thinner 09/23/23 12/31/23 History fluticasone propionate 50 2 spray intranasal DAILY PRN nasal 12/31/23 12/31/23 History mcg/actuation nasal congestion spray,suspension glimepiride 2 mg tablet 2 mg PO DAILY dm 12/31/23 Unknown History tizanidine 4 mg tablet 4 mg PO QHS PRN PRN muscle spasm 12/31/23 01/25/24 History furosemide 40 mg tablet 40 mg PO BIDLX water pill 30 days 01/03/24 01/27/24 Rx #60 tabs losartan 50 mg tablet 50 mg PO DINNER blood pressure 30 01/03/24 01/21/24 Rx days #30 tabs metoprolol succinate 50 mg 50 mg PO DAILY heart rate 1 month 01/03/24 01/21/24 Rx tablet,extended release 24 hr #30 tabs spironolactone 25 mg tablet 12.5 mg (1/2 x 25 mg) PO DAILY 01/03/24 01/21/24 Rx water pill #30 tabs enoxaparin 80 mg/0.8 mL 70 mg (0.7 mL) subcut Q12H blood 01/20/24 01/27/24 Rx subcutaneous syringe (Lovenox) thinner 30 days #42 mL acetaminophen 500 mg tablet 1,000 mg (2 x 500 mg) PO Q8 pain 01/27/24 01/27/24 Rx #0 tabs food supplemt, lactose-reduced 120 ml PO TIDCM supplement #0 mL 01/27/24 01/26/24 Rx 0.08 gram-1.5 kcal/mL oral liquid (Ensure Plus High Protein) gabapentin 100 mg capsule 200 mg (2 x 100 mg) PO BIDCM nerve 01/27/24 01/27/24 Rx pain #0 caps oxycodone 5 mg tablet 10 mg (2 x 5 mg) PO Q4H PRN PRN 01/27/24 01/27/24 Rx Pain Score 4-10 1 day #6 tabs sennosides 8.6 mg-docusate sodium 2 tab PO DAILY constipation #0 tabs 01/27/24 01/27/24 Rx 50 mg tablet (Stimulant Laxative Plus) Allergy/AdvReac Type Severity Reaction Status Date / Time benazepril (From Lotensin) Allergy Mild DOESNT Verified 01/18/24 10:03 REMEMBER quinapril (From Accupril) Allergy Mild UNKNOWN Verified 01/18/24 10:03 Sulfa (Sulfonamide Allergy Mild Hives Verified 01/18/24 10:03 Antibiotics) verapamil (From Calan) Allergy Mild UNKNOWN Verified 01/18/24 10:03 Surgical History History of femoropopliteal bypass S/P carotid endarterectomy Social History Smoking Status: Never smoker ROS Constitutional Constitutional: Reports change in weight and weakness; Denies anorexia, chills, fatigue, fever(s) or night sweats Eyes Eyes: Denies blurry vision, change in vision, eye pain or loss of vision ENT HEENT: Denies abnormal hearing, dysphagia, headache(s), hearing loss, nasal congestion or sore throat Cardiovascular Cardiovascular: Reports other Details: uses 2 pillows at night.......breathes easier. ; Denies chest pain, dyspnea on exertion, edema, lightheadedness, orthopnea, palpitations, paroxysmal nocturnal dyspnea or syncope Respiratory/Chest Respiratory/Chest: Reports cough and other Details: clear sputum ; Denies dyspnea, shortness of breath at rest, shortness of breath with exertion or wheezing Gastrointestinal Gastrointestinal: Denies abdominal pain, constipation, diarrhea, dyspepsia, hematemesis, hematochezia, nausea or vomiting Genitourinary Genitourinary: Denies dysuria, hematuria, nocturia, urinary frequency, urinary hesitancy, urinary incontinence or urinary urgency Musculoskeletal Musculoskeletal: Reports other Details: pain in the R foot ; Denies back pain, joint pain, joint swelling or neck pain Neurologic Neurologic: Denies confusion, disequilibrium, dizziness, focal weakness, headache(s), paresthesias, seizures or tremor(s) Psychiatric Psychiatric: Denies anxiety, depression, homicidal ideation or suicidal ideation Endocrine Endocrinology: Denies change in body appearance, polydipsia or polyuria Hematologic/Lymphatic Hematologic/Lymphatic: Reports easy bruising; Denies easy bleeding or lymphadenopathy Allergic/Immunologic Allergic/Immunologic: Denies rhinitis, eczemia or asthma Vital Signs Vital Signs Vital Signs: 01/27/24 14:35 01/27/24 14:53 Temperature 96.7 F L Temperature Source Temporal Pulse Rate 109 H Pulse Rhythm Irregular Pulse Strength Normal (2+) Respiratory Rate 18 16 Respiratory Effort Normal Non-Labored Respiratory Depth Normal Respiratory Pattern Normal Blood Pressure 126/83 H Blood Pressure Mean 97 Pulse Ox 97 Oxygen Delivery Method Room Air Room Air Weight Weight: 147 lb 8 oz Body Mass Index (BMI) 26.1 Physical Exam Const alert, oriented x3 and no apparent distress Constitutional Narrative: Sitting in the recliner at the bedside. Multiple family members are in the room. General Appearance: cooperative and well kempt HEENT HEENT Narrative: Mucous membranes are dry Eyes PERRL, EOMs intact bilaterally, conjunctivae normal and no scleral icterus Eyes Narrative: No discharge from the eyes. Neck supple Neck Narrative: Left carotid bruit General: trachea midline Chest Chest: symmetrical chest wall rise Resp normal respiratory effort Resp Narrative: Good air exchange, no conversational dyspnea, able to speak in complete sentences. Positive crackles in both bases, right greater than left. No cough with deep breathing. Effort and Inspection: able to speak in complete sentences Cardio Cardio Narrative: Irregular irregular rhythm. Patient denies palpitations. She cannot feel that her heart rate is irregular. She has a systolic murmur heard at the second right intercostal space with radiation to the left ventricular outflow track, lower left sternal border and apex. No gallop appreciated. GI normal to inspection, nondistended, normoactive bowel sounds, soft to palpation and non-tender GI Narrative: Having regular bowel movements. No guarding with palpation. Extremity no calf tenderness and no pedal edema Extremity Narrative: Both feet are warm. The dressing was just changed on the R foot. Will examine in the AM when the dressing is changed. The surgical incisions on the medial right calf and the medial right thigh are intact with no dehiscence, no jesús- incisional erythema and no discharge. Skin no jaundice and no mottling Rashes: no rashes Wound Narrative: She is having a lot of pain in the R foot/distal LE and she tells me it is burning pain. There is dependent rubor. She has dry gangrene on the dorsal surface of the right great toe and also on the right third toe. There is a wet bulla at the base of the second toe and third toe with serous discharge. No odor to the discharge. She has a stage II decubitus ulcer on the right heel. Could not tolerate a padded boot due to increased pain. the R foot is warm to touch. Neuro oriented x3, CN's II-XII intact bilaterally, moves all extremities and no sensory deficits noted Psych thought process normal, cooperative, affect normal and speech normal Appearance: appropriate Attitude: calm Activity / Motor Behavior: appropriate eye contact Results Lab / Micro Data 01/28/24 04:45 01/28/24 04:45 Assessment & Plan Assessment/Plan (1) Debility: (2) Generalized weakness: (3) Acute occlusion of artery: (4) Peripheral vascular disease: (5) History of femoropopliteal bypass: (6) Dry gangrene: (7) Stage II decubitus ulcer: QUALIFIERS: Pressure injury location: heel Laterality: right Q ualified Code(s): L89.612 - Pressure ulcer of right heel, stage 2 (8) Neuropathic pain: (9) Dilated cardiomyopathy: PLAN: Etiology? Was to follow up with Dr. Herrera in the office but, she ended up in the hospital with an acute arterial occlusion and ischemic right leg. Will need to reschedule. (10) Chronic a-fib: (11) Factor V Leiden: (12) Anticoagulant long-term use: (13) Iron deficiency anemia: QUALIFIERS: Iron deficiency anemia type: unspecified iron deficiency Qualified Code(s): D50.9 - Iron deficiency anemia, unspecified PLAN: Plan PLAN PT for gait stability OT for ADL's Analgesics as needed - currently on GAbapentin 200 mg BID and Scheduled Tylenol and having a lot of pain in the R foot and distal RLE. Increase gabapentin to 200 mg 3 times daily. Add tramadol 50 mg p.o. every 8 hours as needed pain 4- 10. Bowel protocol Fall precautions Assess for Anxiety/Depression GI prophylaxis -continue Protonix 20 mg daily DVT prophylaxis with Lovenox 70 mg every 12 hours until she sees Dr. Rojas in the office Follow up with Dr. Rojas, Dr. Blanca, Dr. Khadijah vuong and Dr. Herrera following DC from [facility] AM lab including CMP, CBC, Mag and Phos ordered check iron studies. Mepilex to the R heel and continue to offload. Charges/Coding Visit Charges Inpatient E&M: 28757 SNF Subs L2
[2024-01-27] MEDS: Losartan Potassium 50 MG Tablet PO (17:19)
[2024-01-27] MEDS: Gabapentin 100 MG Capsule 200 MG PO (17:19)
[2024-01-27] MEDS: Ensure Plus High Protein 120 ML LIQUID PO (17:21)
[2024-01-27] MEDS: oxyCODONE 5 MG Tablet 10 MG PO (22:18)
[2024-01-27] MEDS: Enoxaparin 80 MG/0.8 ML Syringe 70 MG SC (22:19)
[2024-01-27] MEDS: Atorvastatin Calcium 40 MG Tablet PO (22:20)
[2024-01-28 05:08] LABS: Absolute Lymphocyte Count 1.26 X10^3/uL (0.83-4.51); Absolute Neutrophil Count 3.2 X10^3/uL (2.0-7.7); Basophil# 0.05 X10^3/uL; Basophil% 0.9 % (0-1); Eosinophil# 0.22 X10^3/uL; Eosinophils% 4.1 % (0-5); Hematocrit 30.6 % (37-47); Hemoglobin 9.6 g/dL (12.0-15.0); Lymphocyte # 1.26 X10^3/ul (0.83-4.51); Lymphocyte % 23.5 % (19-41); Mean Corp Hgb Conc 31.4 g/dL (32-36); Mean Corpuscular Hgb 30.7 pg (27.0-32.0); Mean Corpuscular Volume 97.8 fL (81-99); Monocyte% 11.2 % (0-10); NRBC Flagged by Analyzer 0 % (0-5); Neutrophil % 59.7 % (47-70); Platelet Count 256 K/mm3 (150-450); RBC Distribution Width CV 16.7 % (11.6-14.6); RBC Distribution Width SD 58.1 fl (35.1-43.9); Red Blood Count 3.13 M/mm3 (4.2-5.4); White Blood Count 5.4 K/mm3 (4.4-11.0)
[2024-01-28 05:29] LABS: BNP,B-Type NATRIURETIC PEPTIDE 458.1 pg/mL (0-100)
[2024-01-28 05:32] LABS: AST(SGOT) 30 U/L (15-37); Alanine Aminotransfer ALT/SGPT 42 U/L (13-56); Albumin, Serum 2.8 g/dL (3.2-5.0); Alkaline Phosphatase 65 U/L (45-117); Anion Gap 8 (5-15); BUN 22 mg/dL (7-18); Calcium,Total 9.2 mg/dL (8.5-10.1); Chloride 101 mmol/L (98-107); Creatinine, Serum 0.92 mg/dL (0.55-1.02); EST Glomerular Filtration Rate 62 mL/min (>60); Est Glom Filt Rate - Afr Amer 75 mL/min (>60); Estimated Creatinine Clearance 41.82 ml/min; Globulin 3.9 g/dL (2.2-4.2); Glucose 110 mg/dL (74-106); Magnesium 1.7 mg/dL (1.6-2.6); Protein, Total 6.7 g/dL (6.4-8.2); Sodium Level 137 mmol/L (136-145)
[2024-01-28] MEDS: oxyCODONE 5 MG Tablet 10 MG PO ×2 (05:48→17:04)
[2024-01-28] MEDS: 0.9% Saline Lock 10 ML Syringe IV ×2 (05:49→17:10)
[2024-01-28] MEDS: Acetaminophen 500 MG Tablet 1000 MG PO ×3 (05:50→20:12)
[2024-01-28] MEDS: Furosemide 40 MG Tablet PO ×2 (05:50→13:08)
[2024-01-28 06:00] VITALS: BP 118/66; PULSE 75; RESP 16
[2024-01-28 06:43] LABS: Bedside Glucose 119 mg/dL (74-106)
[2024-01-28 08:00] VITALS: BMI 25.7
[2024-01-28] MEDS: Ensure Plus High Protein 120 ML LIQUID PO ×2 (08:26→17:03)
[2024-01-28 08:30] VITALS: BP 110/76; PULSE 94
[2024-01-28] MEDS: Metoprolol(XL)Succ 50 MG Tablet PO (08:30)
[2024-01-28] MEDS: Glimepiride 2 MG Tablet PO (08:30)
[2024-01-28] MEDS: Senna/Docusate Sodium 1 Tablet 2 TABLET PO (08:31)
[2024-01-28] MEDS: Pantoprazole Sodium 20 MG Tablet PO (08:31)
[2024-01-28] MEDS: Enoxaparin 80 MG/0.8 ML Syringe 70 MG SC ×2 (08:32→20:10)
[2024-01-28] MEDS: Tolterodine Tartrate 2 MG CAP.SA PO (08:34)
[2024-01-28] MEDS: Spironolactone 25 MG Tablet 12.5 MG PO (08:35)
[2024-01-28] MEDS: Gabapentin 100 MG Capsule 200 MG PO ×2 (08:38→17:04)
[2024-01-28 08:43] VITALS: BP 110/76; PULSE 94; O2SAT 98
[2024-01-28] MEDS: Potassium Chloride Oral Tablet 20 MEQ PO ×3 (11:50→17:08)
[2024-01-28] MEDS: Magnesium Chloride 64 MG Delay Rel.Tablet 128 MG PO (11:50)
[2024-01-28] MEDS: Tuberculin,Purif.prot.deriv. 50 TU/ML Vial 0.1 ML ID (11:51)
[2024-01-28 13:00] VITALS: PULSE 82; RESP 18; O2SAT 95
[2024-01-28 15:16] VITALS: BP 103/59; PULSE 100; RESP 16; TEMP 523.8; TEMP 975; O2SAT 98
[2024-01-28] MEDS: Juven (unflavored) Packet 1 PACKET PO (17:03)
[2024-01-28] MEDS: Losartan Potassium 50 MG Tablet PO (17:06)
[2024-01-28] MEDS: Nystatin Powder 15gm Bottle 1 APPLIC TOPICAL (20:10)
[2024-01-28] MEDS: Atorvastatin Calcium 40 MG Tablet PO (20:12)
[2024-01-28] MEDS: traMADol 50 MG Tablet PO (20:15)
--- NOTE | 2024-01-28 23:46 | PHA.CONS_ITS ---
TCU RX Drug Regimen Review Subjective/Objective Subjective/Objective: Subjective: TCU Admission. 83 YOF presented to the ER from her sterile technician due to concern for right foot ischemia. Hospitalized to be managed for acute limb ischemia of the right lower extremity, followed by vascular surgery and rebecca crowder. Admitted to TCU with debility for strengthening and rehabilitation. Objective: Allergies benazepril (From Lotensin) Allergy (Mild, Verified 01/18/24 10:03) DOESNT REMEMBER quinapril (From Accupril) Allergy (Mild, Verified 01/18/24 10:03) UNKNOWN Sulfa (Sulfonamide Antibiotics) Allergy (Mild, Verified 01/18/24 10:03) Hives verapamil (From Calan) Allergy (Mild, Verified 01/18/24 10:03) UNKNOWN Current Medications Generic Name Dose Route Start Last Admin Trade Name Freq PRN Reason Stop Dose Admin Acetaminophen 1,000 mg 01/27/24 22:00 01/28/24 20:12 Acetaminophen 500 Mg Tablet PO 1,000 mg Q8 KAVYA Administration Atorvastatin Calcium 40 mg 01/27/24 22:00 01/28/24 20:12 Atorvastatin Calcium 40 Mg Tablet PO 40 mg QHS KAVYA Administration Enoxaparin Sodium 70 mg 01/27/24 22:00 01/28/24 20:10 Enoxaparin 80 Mg/0.8 Ml Syringe SC 02/17/24 10:01 70 mg Q12H KAVYA Administration Ferrous Sulfate 325 mg 01/29/24 12:00 Ferrous Sulfate 325 Mg Tablet PO DAILY@1200 KAVYA Fluticasone Propionate 2 spray 01/27/24 14:47 Fluticasone 0.05% 1 [facility] Nasal.Sry NASAL DAILY PRN nasal congestion Furosemide 40 mg 01/28/24 06:00 01/28/24 13:08 Furosemide 40 Mg Tablet PO 40 mg BIDLX KAVYA Administration Protocol Gabapentin 200 mg 01/28/24 17:45 01/28/24 17:04 Gabapentin 100 Mg Capsule PO 200 mg TIDCM KAVYA Administration Glimepiride 2 mg 01/28/24 08:00 01/28/24 08:30 Glimepiride 2 Mg Tablet PO 2 mg BREAKFAST KAVYA Administration Sodium Chloride 250 mls @ 15 mls/hr 01/27/24 15:33 IV .[id number] PRN Additional IVPB Infusion Sodium Chloride 250 mls @ 15 mls/hr 01/27/24 15:33 IV .[id number] PRN Saline Flush L-Arginine/L-Glutamine/Calcium HMB 1 packet 01/28/24 17:00 01/28/24 17:03 Buster (Unflavored) Packet PO 1 packet BIDCM KAVYA Administration Losartan Potassium 50 mg 01/27/24 17:00 01/28/24 17:06 Losartan Potassium 50 Mg Tablet PO 50 mg DINNER AKVYA Administration Protocol Magnesium Chloride 128 mg 01/28/24 10:00 01/28/24 11:50 Magnesium Chloride 64 Mg Delay Rel.Tablet PO 128 mg DAILY KAVYA Administration Metoprolol Succinate 50 mg 01/28/24 10:00 01/28/24 08:30 Metoprolol(Xl)Succ 50 Mg Tablet PO 50 mg DAILY KAVYA Administration Protocol Nutritional Formula (Lactose Free) 120 ml 01/27/24 17:45 01/28/24 17:03 Ensure Plus High Protein 120 Ml Liquid PO 120 ml TIDCM KAVYA Administration Nystatin 1 applic 01/28/24 22:00 01/28/24 20:10 Nystatin Powder 15gm Bottle TOPICAL 1 applic BID KAVYA Administration Protocol Oxycodone HCl 10 mg 01/27/24 14:47 01/28/24 17:04 Oxycodone 5 Mg Tablet PO 10 mg Q4H PRN PRN Administration Pain Score 4-10 Pantoprazole Sodium 20 mg 01/28/24 10:00 01/28/24 08:31 Pantoprazole Sodium 20 Mg Tablet PO 20 mg DAILY KAVYA Administration Senna/Docusate Sodium 2 tablet 01/28/24 10:00 01/28/24 08:31 Senna/Docusate Sodium 1 Tablet PO 2 tablet DAILY KAVYA Administration Sodium Chloride 10 - 40 ml 01/27/24 15:33 01/28/24 17:10 0.9% Saline Lock 10 Ml Syringe IV 20 ml UD PRN Administration SALINE FLUSH Spironolactone 12.5 mg 01/28/24 10:00 01/28/24 08:35 Spironolactone 25 Mg Tablet PO 12.5 mg DAILY KAVYA Administration Protocol Tizanidine HCl 4 mg 01/27/24 15:04 Tizanidine Hcl 2 Mg Tablet PO QHS PRN PRN muscle spasm Tolterodine Tartrate 2 mg 01/28/24 10:00 01/28/24 08:34 Tolterodine Tartrate 2 Mg Cap.Sa PO 2 mg DAILY KAVYA Administration Tramadol HCl 50 mg 01/28/24 15:39 01/28/24 20:15 Tramadol 50 Mg Tablet PO 50 mg Q8H PRN PRN Administration PAIN 1-3 Tuberculin PPD 0.1 ml 02/04/24 10:00 Tuberculin,Purif.Prot.Deriv. 50 Tu/Ml Vial ID 02/04/24 10:01 X1 ONE Problem List Neuropathic pain (Acute) Stage II decubitus ulcer (Acute) Dry gangrene (Acute) Peripheral vascular disease (Acute) Acute occlusion of artery (Acute) Iron deficiency anemia (Acute) Generalized weakness (Acute) Debility (Acute) Dilated cardiomyopathy (Acute) History of femoropopliteal bypass (Acute) Anticoagulant long-term use (Acute) Chronic a-fib (Chronic) Factor V Leiden (Acute) Vital Signs Temp Pulse Resp BP Pulse Ox O2 Del Method 975 F H 100 16 103/59 L 98 Room Air 01/28/24 15:16 01/28/24 15:16 01/28/24 15:16 01/28/24 15:16 01/28/24 15:16 01/28/24 15:16 Oxygen Delivery Method Room Air Weight: 65.828 kg Body Mass Index (BMI) 25.7 Sodium 137 mmol/L (136-145) 01/28/24 04:45 Potassium 3.0 mmol/L (3.5-5.1) L 01/28/24 04:45 Chloride 101 mmol/L (98-107) 01/28/24 04:45 Carbon Dioxide 28.0 mmol/L (21.0-32.0) 01/28/24 04:45 Anion Gap 8 (5-15) 01/28/24 04:45 BUN 22 mg/dL (7-18) H 01/28/24 04:45 Creatinine 0.92 mg/dL (0.55-1.02) 01/28/24 04:45 Est GFR (MDRD) Af Amer 75 mL/min (>60) 01/28/24 04:45 Est GFR (MDRD) Non-Af 62 mL/min (>60) 01/28/24 04:45 BUN/Creatinine Ratio 24.0 RATIO (10-20) H 01/28/24 04:45 Glucose 110 mg/dL (74-106) H 01/28/24 04:45 Assessment/Plan: 1. Pain: acetaminophen 1000mg PO Q8, tramadol 50mg PO Q6H PRN pain 1-3 and oxycodone 10mg PO Q4H PRN pain 4-10. Resident has had 3 doses of oxycodone for pain scores of 7 and 8 in the foot and 1 dose of tramadol. Please continue to monitor for increased pain, PRN usage, constipation, renal function, and respiratory depression. 2. Bowel: senna/docusate 2T PO daily. Please continue to monitor for constipation. Last documented bowel movement was 01/25. 3. Acute right lower extremity limb ischemia/factor V Leiden deficiency: enoxaparin 70mg SC Q12. Warfarin on hold until follow up with vascular surgery and determination of halfway anticoagulation. Please continue to monitor for S/S of bleeding, hemoglobin (last 9.6g/dL), platelets (last 256,000) and renal function. 4. Atrial fibrillation/HFrEF/hypertension: enoxaparin 70mg SC Q12, furosemide 40mg PO BIDLX, metoprolol succinate 50mg PO daily, losartan 50mg PO dinner, spironolactone 25mg PO daily. Please continue to monitor for S/S of bleeding/stroke, edema, renal function (last SCr 0.92mg/dL), potassium (last 3mmol/L), HR (last 100), BP (last 103/59). 5. Diabetes mellitus II: glimepiride 2mg PO breakfast. Please continue to monitor hemoglobin A1c (last 6.8% 01/01/24), glucose (last 119mg/dL), S/S of hypoglycemia (BEERs medication). 6. Anemia: ferrous sulfate 325mg PO lunch. Please continue to monitor hemoglobin, dark stools, constipation and iron studies (last 01/01/24). 7. GERD: pantoprazole 20mg PO daily. Please continue to monitor for S/S of GERD, diarrhea (BEERs medication) and magnesium. 8. Hyperlipidemia: atorvastatin 40mg PO QHS. Please continue to monitor lipid panel (last 01/01/24), LFTs (last 01/28/24), and muscle pain. 9. Nasal congestion: fluticasone 0.05% nasal spray 2 sprays nasal daily PRN nasal congestion. No PRN doses have been used. Please continue to monitor for PRN usage and nasal congestion. 10. Muscle spasms: tizanidine 4mg PO QHS PRN muscle spasms. Resident has not used any doses. Please continue to monitor for PRN usage and muscle spasms. Assessment/Plan for indications treated with psychotropic medications: 1. Neuropathic pain: gabapentin 200mg PO TIDCM. Please consider changing to BID as this is the recommended frequency for CrCl of 41 mL/min. Thanks. GDR not appropriate as this medication is being used for neuropathy. Please continue to monitor for confusion, renal function (BEERs) and falls/fractures (BEERs). Medical chart and medication regimen reviewed. The following medication irregularities or issues were identified: 1. Gabapentin 200mg PO TIDCM. Please consider changing to BID as this is the recommended frequency for CrCl of 41 mL/min. Thanks. 2. Tolterodine 2mg PO daily, magnesium chloride 128mg PO daily. I did not see documented indications for these medications. Please consider adding the indication. Thanks. Date Date of Note:: 01/28/24
[2024-01-29] MEDS: Furosemide 40 MG Tablet PO ×2 (06:36→13:01)
[2024-01-29] MEDS: oxyCODONE 5 MG Tablet 10 MG PO ×2 (06:36→20:56)
[2024-01-29] MEDS: Acetaminophen 500 MG Tablet 1000 MG PO ×3 (06:36→20:57)
[2024-01-29 06:38] VITALS: BP 127/60; PULSE 71
[2024-01-29 06:42] LABS: Potassium 4.2 mmol/L (3.5-5.1)
[2024-01-29 06:43] LABS: Bedside Glucose 120 mg/dL (74-106)
[2024-01-29 09:07] VITALS: BP 104/50; PULSE 84
[2024-01-29] MEDS: Metoprolol(XL)Succ 50 MG Tablet PO (09:07)
[2024-01-29] MEDS: Pantoprazole Sodium 20 MG Tablet PO (09:07)
[2024-01-29] MEDS: Senna/Docusate Sodium 1 Tablet 2 TABLET PO (09:07)
[2024-01-29] MEDS: Tolterodine Tartrate 2 MG CAP.SA PO (09:08)
[2024-01-29] MEDS: Spironolactone 25 MG Tablet 12.5 MG PO (09:09)
[2024-01-29] MEDS: Nystatin Powder 15gm Bottle 1 APPLIC TOPICAL ×2 (09:10→20:58)
[2024-01-29] MEDS: Juven (unflavored) Packet 1 PACKET PO ×2 (09:10→16:40)
[2024-01-29] MEDS: Glimepiride 2 MG Tablet PO (09:10)
[2024-01-29] MEDS: Gabapentin 100 MG Capsule 200 MG PO ×3 (09:19→16:50)
[2024-01-29] MEDS: Ensure Plus High Protein 120 ML LIQUID PO ×3 (09:19→16:49)
[2024-01-29] MEDS: Magnesium Chloride 64 MG Delay Rel.Tablet 128 MG PO (09:19)
[2024-01-29] MEDS: Enoxaparin 80 MG/0.8 ML Syringe 70 MG SC ×2 (09:22→20:56)
[2024-01-29 09:27] VITALS: BP 104/50; PULSE 84; O2SAT 95
[2024-01-29] MEDS: Ferrous Sulfate 325 MG Tablet PO (12:58)
[2024-01-29 15:00] VITALS: PULSE 92; RESP 18; O2SAT 97
[2024-01-29 15:01] VITALS: BMI 26.1
[2024-01-29 16:00] VITALS: BP 161/72; PULSE 92; RESP 16; TEMP 36.9; O2SAT 97
[2024-01-29] MEDS: Losartan Potassium 50 MG Tablet PO (16:50)
[2024-01-29] MEDS: Atorvastatin Calcium 40 MG Tablet PO (20:56)
[2024-01-29] MEDS: Menthol/Lanolin/Calamine/Znox 113 GM Tube 1 APPLIC TOPICAL (20:58)
[2024-01-30] MEDS: traMADol 50 MG Tablet PO (00:22)
[2024-01-30] MEDS: oxyCODONE 5 MG Tablet 10 MG PO ×3 (01:08→22:30)
[2024-01-30] MEDS: Furosemide 40 MG Tablet PO ×2 (05:23→13:45)
[2024-01-30] MEDS: Acetaminophen 500 MG Tablet 1000 MG PO ×3 (05:24→22:07)
[2024-01-30 05:26] VITALS: BP 99/64; PULSE 76
[2024-01-30 06:00] VITALS: BMI 26.0
[2024-01-30 06:51] LABS: Bedside Glucose 126 mg/dL (74-106)
[2024-01-30] MEDS: Gabapentin 100 MG Capsule 200 MG PO ×3 (09:34→16:38)
[2024-01-30] MEDS: Ensure Plus High Protein 120 ML LIQUID PO ×3 (09:34→16:38)
[2024-01-30] MEDS: Spironolactone 25 MG Tablet 12.5 MG PO (09:36)
[2024-01-30] MEDS: Juven (unflavored) Packet 1 PACKET PO ×2 (09:36→16:38)
[2024-01-30] MEDS: Glimepiride 2 MG Tablet PO (09:36)
[2024-01-30] MEDS: Tolterodine Tartrate 2 MG CAP.SA PO (09:37)
[2024-01-30] MEDS: Enoxaparin 80 MG/0.8 ML Syringe 70 MG SC ×2 (09:37→22:07)
[2024-01-30] MEDS: Pantoprazole Sodium 20 MG Tablet PO (09:38)
[2024-01-30 09:39] VITALS: BP 122/61; PULSE 62
[2024-01-30] MEDS: Metoprolol(XL)Succ 50 MG Tablet PO (09:39)
[2024-01-30] MEDS: Senna/Docusate Sodium 1 Tablet 2 TABLET PO (09:39)
[2024-01-30] MEDS: Magnesium Chloride 64 MG Delay Rel.Tablet 128 MG PO (09:42)
[2024-01-30] MEDS: Nystatin Powder 15gm Bottle 1 APPLIC TOPICAL ×2 (09:46→22:06)
[2024-01-30] MEDS: Menthol/Lanolin/Calamine/Znox 113 GM Tube 1 APPLIC TOPICAL ×2 (09:47→22:06)
--- NOTE | 2024-01-30 11:50 | NURSING ---
Clinical Technician Note; Activity Asset: Complete Eri is independent in her choice of daily activities. She moved her two year ago from [place] to be near her daughter. 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 She reads, has word puzzles uses her smartphone, visits with family and welcomes visits from the barmaid. Eri prefers independent activities at this time. Staff will remind her of weekly activities and respect her right to say no.
--- NOTE | 2024-01-30 12:15 | CASEMGMT ---
Social Work SW met with patient to complete initial assessment. Introduced self and role. Verified/updated contacts. Patient confirmed code status as full code. Educated to [facility] insurance with NRD 01/29 and continued stay is not guaranteed with each review. Pt's goal is to return home with at [facility]. SW will continue to follow for DC planning. Cristal Wu, ANIMAL CARE TAKER PROBATION OFFICER
[2024-01-30] MEDS: Ferrous Sulfate 325 MG Tablet PO (13:45)
[2024-01-30 13:59] VITALS: BP 106/55; PULSE 76; RESP 16; TEMP 36.6; O2SAT 97
--- NOTE | 2024-01-30 14:16 | NURSING ---
Updated resident and family that staff members and another resident tested positive for covid.
--- NOTE | 2024-01-30 15:52 | CHAPLAIN ---
Type of Pastoral Visit ___ Initial Visit _x__ Follow-up Visit ___ On-call Visit ___ General Patient Visit ___ Spiritual Assessment ___ Family Conference ___ Bereavement ___ Rapid Response ___ Code Blue ___ Other (describe below) Pastoral Care Referral From _x__ Patient ___ Family ___ Nurse ___ Physician ___ Collet Maker ___ New Car Inspector ___ Other (describe below) Sacrament/Intervention _x__ Active listening ___ Anointing ___ Mormon ___ Bereavement ___ Communion ___ Emmy exploration ___ _x__ Life review _x__ Prayer ___ Reconciliation ___ Sacrament of Sick _x__ Supportive presence ___ Wedding ___ Other (describe below) Pastoral Comments this is a follow up visit to the patient that had been seen before in [facility]; pt reviews her progress and transition to TCU; pt speaks mostly of her family and how she has been involved in helping them through their times of crisis and need; pt is a person of emmy and refers to that emmy in her circumstances and derives hope; prayer and presence given and received with thankfulness
[2024-01-30] MEDS: Losartan Potassium 50 MG Tablet PO (16:38)
[2024-01-30] MEDS: COVID VAC 24-25 (12UP)(MODERNA)/PF 50 MCG/0.5 ML SYRINGE IM (17:12)
[2024-01-30 22:00] VITALS: PULSE 76; RESP 16; O2SAT 96
[2024-01-30] MEDS: Atorvastatin Calcium 40 MG Tablet PO (22:07)
[2024-01-31 06:00] VITALS: BMI 25.9
[2024-01-31] MEDS: Furosemide 40 MG Tablet PO ×2 (06:21→13:30)
[2024-01-31] MEDS: Acetaminophen 500 MG Tablet 1000 MG PO ×3 (06:22→21:56)
[2024-01-31 06:26] VITALS: BP 102/54; PULSE 81; RESP 16
[2024-01-31 06:29] LABS: Bedside Glucose 116 mg/dL (74-106)
[2024-01-31] MEDS: Juven (unflavored) Packet 1 PACKET PO ×2 (08:47→16:50)
[2024-01-31] MEDS: Pantoprazole Sodium 20 MG Tablet PO (08:50)
[2024-01-31] MEDS: Glimepiride 2 MG Tablet PO (08:50)
[2024-01-31] MEDS: Magnesium Chloride 64 MG Delay Rel.Tablet 128 MG PO (08:51)
[2024-01-31] MEDS: Enoxaparin 80 MG/0.8 ML Syringe 70 MG SC ×2 (08:51→21:55)
[2024-01-31] MEDS: Nystatin Powder 15gm Bottle 1 APPLIC TOPICAL (08:51)
[2024-01-31] MEDS: Tolterodine Tartrate 2 MG CAP.SA PO (08:52)
[2024-01-31 08:53] VITALS: BP 105/68; PULSE 90
[2024-01-31] MEDS: Metoprolol(XL)Succ 50 MG Tablet PO (08:53)
[2024-01-31] MEDS: Menthol/Lanolin/Calamine/Znox 113 GM Tube 1 APPLIC TOPICAL ×2 (08:53→21:57)
[2024-01-31] MEDS: Spironolactone 25 MG Tablet 12.5 MG PO (08:54)
[2024-01-31] MEDS: Senna/Docusate Sodium 1 Tablet 2 TABLET PO (08:54)
[2024-01-31] MEDS: Ensure Plus High Protein 120 ML LIQUID PO ×3 (09:02→16:57)
[2024-01-31] MEDS: Gabapentin 100 MG Capsule 200 MG PO ×3 (09:03→16:58)
[2024-01-31 09:06] VITALS: BP 105/68; PULSE 90; O2SAT 94
[2024-01-31] MEDS: oxyCODONE 5 MG Tablet 10 MG PO (13:27)
[2024-01-31] MEDS: Ferrous Sulfate 325 MG Tablet PO (13:28)
[2024-01-31 14:30] VITALS: PULSE 65; RESP 18; O2SAT 95
--- NOTE | 2024-01-31 14:51 | WOUNDNOTE ---
wound photo: right foot
--- NOTE | 2024-01-31 14:51 | WOUNDNOTE ---
wound photo: right heel
[2024-01-31 15:30] VITALS: BP 126/69; PULSE 62; RESP 18; TEMP 36.3; O2SAT 96
--- NOTE | 2024-01-31 16:26 | NURSING ---
ZORN/WOUND NURSE IN TO LOOK AT AND CHANGE PT LT FOOT PER CONSULT.
[2024-01-31] MEDS: Losartan Potassium 50 MG Tablet PO (16:58)
[2024-01-31] MEDS: Atorvastatin Calcium 40 MG Tablet PO (21:57)
[2024-02-01] MEDS: oxyCODONE 5 MG Tablet 10 MG PO ×3 (04:09→21:11)
[2024-02-01] MEDS: Furosemide 40 MG Tablet PO ×2 (05:54→13:10)
[2024-02-01] MEDS: Acetaminophen 500 MG Tablet 1000 MG PO ×3 (05:54→21:10)
[2024-02-01 06:00] VITALS: BP 126/64; PULSE 77; RESP 16
[2024-02-01 06:21] LABS: Bedside Glucose 129 mg/dL (74-106)
[2024-02-01 08:10] VITALS: BP 101/55; PULSE 77; RESP 16; TEMP 36.3; O2SAT 95
[2024-02-01] MEDS: Juven (unflavored) Packet 1 PACKET PO ×2 (08:11→17:07)
[2024-02-01] MEDS: Enoxaparin 80 MG/0.8 ML Syringe 70 MG SC ×2 (08:11→21:11)
[2024-02-01] MEDS: Gabapentin 100 MG Capsule 200 MG PO ×3 (08:11→17:07)
[2024-02-01] MEDS: Senna/Docusate Sodium 1 Tablet 2 TABLET PO (08:12)
[2024-02-01] MEDS: Spironolactone 25 MG Tablet 12.5 MG PO (08:12)
[2024-02-01] MEDS: Glimepiride 2 MG Tablet PO (08:13)
[2024-02-01] MEDS: Menthol/Lanolin/Calamine/Znox 113 GM Tube 1 APPLIC TOPICAL ×2 (08:13→21:12)
[2024-02-01] MEDS: Magnesium Chloride 64 MG Delay Rel.Tablet 128 MG PO (08:14)
[2024-02-01] MEDS: Tolterodine Tartrate 2 MG CAP.SA PO (08:14)
[2024-02-01] MEDS: Nystatin Powder 15gm Bottle 1 APPLIC TOPICAL ×2 (08:14→21:12)
[2024-02-01 08:15] VITALS: BP 105/55; PULSE 77
[2024-02-01] MEDS: Metoprolol(XL)Succ 50 MG Tablet PO (08:15)
[2024-02-01] MEDS: Pantoprazole Sodium 20 MG Tablet PO (08:15)
[2024-02-01] MEDS: Ensure Plus High Protein 120 ML LIQUID PO ×3 (08:21→17:07)
[2024-02-01 10:00] VITALS: RESP 16
--- NOTE | 2024-02-01 10:04 | CASEMGMT ---
Social Work IDT met with patient and for care plan meeting. Discussed patient's progress in PT/OT/SN. Educated to [facility] insurance with NRD 02/05 and continued stay is not guaranteed with each review. Provided pt with written communication on insurance process and copay coverage during stay. Pt's goal is to return home with . Pt has wound on right foot and is PWB. Offered to participate in therapy training, but denied. Pt is wishing to DC home soon. SW offered to see the outcome of the insurance update and if no DC date set, can set DC for 02/08. Pt and agreeable. SW inquired about DME needs and HHC. Pt agreeable to a w/c at home, per therapy request, if there is not an high cost. Pt agreeable to HHC as well. SW to refer to [employer] and get copay cost. SW will continue to follow. Cristal Wu, CNA INSTRUCTOR CONTENT DEVELOPMENT SPECIALIST
[2024-02-01] MEDS: Ferrous Sulfate 325 MG Tablet PO (13:09)
--- NOTE | 2024-02-01 15:37 | PCM.DC.SUM ---
Providers Date of Admission: 01/27/24 Primary Care Physician: Dr. 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 Routine Comment: Reason for Consult:: wounds right foot Reason For Visit: RIGHT LOWER LIMB ISCHEMIA Diagnosis Discharge Diagnosis (1) Debility: Status: Acute Code(s): R53.81 - Other malaise (2) Generalized weakness: Status: Acute Code(s): R53.1 - Weakness (3) Acute occlusion of artery: Status: Acute Code(s): I70.90 - Unspecified atherosclerosis (4) Peripheral vascular disease: Status: Acute Code(s): I73.9 - Peripheral vascular disease, unspecified (5) History of femoropopliteal bypass: Status: Acute Code(s): Z98.890 - Other specified postprocedural states (6) Dry gangrene: Status: Acute Code(s): I96 - Gangrene, not elsewhere classified (7) Stage II decubitus ulcer: Status: Acute Code(s): L89.92 - Pressure ulcer of unspecified site, stage 2 Qualifiers: Laterality: right Pressure injury location: heel Qualified Code(s): L89.612 - Pressure ulcer of right heel, stage 2 (8) Neuropathic pain: Status: Acute Code(s): M79.2 - Neuralgia and neuritis, unspecified (9) Dilated cardiomyopathy: Status: Acute Code(s): I42.0 - Dilated cardiomyopathy (10) Chronic a-fib: Status: Chronic Code(s): I48.20 - Chronic atrial fibrillation, unspecified (11) Factor V Leiden: Status: Acute Code(s): D68.51 - Activated protein C resistance (12) Anticoagulant long-term use: Status: Acute Code(s): Z79.01 - long term care administrator (current) use of anticoagulants (13) Iron deficiency anemia: Status: Acute Code(s): D50.9 - Iron deficiency anemia, unspecified Qualifiers: Iron deficiency anemia type: unspecified iron deficiency Qualified Code(s): D50.9 - Iron deficiency anemia, unspecified Medications at Discharge Home Medications omeprazole 20 mg capsule,delayed release 20 mg PO DAILY reflux 09/23/23 oxybutynin chloride 10 mg tablet,extended release 24 hr 10 mg PO DAILY bladder 09/23/23 simvastatin 80 mg tablet 80 mg PO QHS cholesterol 09/23/23 fluticasone propionate 50 mcg/actuation nasal spray,suspension 2 spray intranasal DAILY PRN nasal congestion 12/31/23 glimepiride 2 mg tablet 2 mg PO DAILY dm 12/31/23 furosemide 40 mg tablet 40 mg PO BIDLX water pill 30 days #60 tabs 01/03/24 losartan 50 mg tablet 50 mg PO DINNER blood pressure 30 days #30 tabs 01/03/24 metoprolol succinate 50 mg tablet,extended release 24 hr 50 mg PO DAILY heart rate 1 month #30 tabs 01/03/24 spironolactone 25 mg tablet 12.5 mg (1/2 x 25 mg) PO DAILY water pill #30 tabs 01/03/24 acetaminophen 500 mg tablet 1,000 mg (2 x 500 mg) PO Q8 pain #0 tabs 01/27/24 gabapentin 100 mg capsule 200 mg (2 x 100 mg) PO BIDCM nerve pain #0 caps 01/27/24 arginine 7 gram-glutam 7 gram-CaHMB 1.5 [id number]-tc-min oral pwd pkt (Buster (with collagen)) 1 packet PO BIDCM 30 days #60 ea 02/03/24 enoxaparin 80 mg/0.8 mL subcutaneous syringe 70 mg (0.7 mL) subcut Q12H 30 days #42 mL 02/03/24 ferrous sulfate 325 mg (65 mg iron) tablet (FeroSul) 325 mg PO DAILY@1200 30 days #30 tabs 02/03/24 magnesium chloride 64 mg (magnesium chloride) tablet,delayed release (Mag 64) 128 mg (2 x 64 mg) PO DAILY 30 days #60 tabs 02/03/24 oxycodone 5 mg tablet 10 mg (2 x 5 mg) PO Q4H PRN PRN Pain Score 4-10 7 days #84 tabs 02/03/24 sennosides 8.6 mg-docusate sodium 50 mg tablet (Stimulant Laxative Plus) 2 tab PO DAILY 30 days #60 tabs 02/03/24 tramadol 50 mg tablet 50 mg PO Q8H PRN PRN PAIN 1-3 7 days #21 tabs 02/03/24 Hospital Course Operations - (See below.) Procedures None Summary of Care Provided Hospital Course: 83 year old female with below past medical history hospitalized for right foot cellulitis, right lower extremity ischemia, underwent right SFA-popliteal bypass with 6mm PTFE 01/19/[address] Rojas, admitted to TCU with debility, here for rehabilitation, strengthening, prior to discharge home with . Discharge home with 02/08/2024, [facility] PT/OT/ST/SN, wheelchair. Wheelchair: Patient has a mobility limitation that cannot be sufficiently resolved by using a cane or walker. Use of a wheelchair will improve the participating of ADLs on a regular basis in the home. Physical Exam Const alert General Appearance: cooperative HEENT normocephalic Eyes PERRL and EOMs intact bilaterally Neck supple, no JVD and no carotid bruits Resp normal respiratory effort, normal air movement and clear to auscultation bilaterally Cardio regular rate and regular rhythm GI normal to inspection, nondistended, normoactive bowel sounds, non-tender and non-distended Extremity normal capillary refill General Extremity: Negative for edema Skin no rashes or lesions noted General Skin Exam: no breakdown Psych affect normal Appearance: appropriate Weight / BMI Weight Weight: 66.315 kg Body Mass Index (BMI) 25.9 ABG / Lab / Microbiology Data 02/03/24 05:10 02/03/24 05:10 Laboratory: Laboratory Results - last 24 hr 02/01/24 05:50: POC Glucose 129 H Microbiology: Microbiology 01/31/24 06:19 Nasal Secretion SARS-CoV-2 Antigen (Rapid) - Final 01/28/24 20:01 Stool Stool Occult Blood (LATANYA) - Final D/C Instructions Discharge Diet: No restrictions Discharge Activity: Return to Normal Activity, May Shower and Use Walker Weight Bearing Status: Weight bearing as tolerated Call your doctor if you observe: Fever of 101 or Higher, Inability to urinate, Inability to have a bowel movement, Shortness of breath, Dizziness, Fainting spells, Swelling in the ankles, Chest pain and Uncontrolled pain Additional Instructions: Discharge home with 02/08/2024, [facility] PT/OT/ST/SN, wheelchair. Wheelchair: Patient has a mobility limitation that cannot be sufficiently resolved by using a cane or walker. Use of a wheelchair will improve the participating of ADLs on a regular basis in the home. Please Follow Up With: Shaan Rojas MD When: As scheduled. Meaningful Use Info Meaningful Use Meaningful Use Diagnoses (Choose all that apply): None applicable Ischemic Stroke Statin Dosing Therapy Reference: STATIN DOSE THERAPY REFERENCE: * Patients > 75 years receive moderate or high dose statin therapy. * Patients 75 years or YOUNGER should receive HIGH intensity statin dose unless contraindicated. You will be required to document reason for non-treatment if statin daily dose does not meet guidelines. HIGH DOSE STATIN THERAPY DAILY Atorvastatin > than or = to 40 mg Rosuvastatin > than or = to 20 mg Amlodipine + Atorvastatin > than or = to 2.5/40 mg Ezetimibe + Simvastatin 10/80 mg Simvastatin 80mg Discharge Plan Admission Admit Date/Time: 01/27/24 14:24 Primary Reason for Your Visit: Debility. Attending Provider: Kimberlyn King Primary Care Provider: Kendra Lucio Instructions Additional Instructions / Restrictions: Discharge home with 02/08/2024, [facility] PT/OT/ST/SN, wheelchair. Wheelchair: Patient has a mobility limitation that cannot be sufficiently resolved by using a cane or walker. Use of a wheelchair will improve the participating of ADLs on a regular basis in the home. Discharge Orders/Prescriptions Prescriptions: New sennosides-docusate sodium [Stimulant Laxative Plus] 8.6-50 mg Tablet 2 tab PO DAILY 30 Days Qty: 60 0RF tramadol 50 mg Tablet 50 mg PO Q8H PRN PRN (Reason: PAIN 1-3) 7 Days Qty: 21 0RF ferrous sulfate [FeroSul] 325 mg (65 mg iron) Tablet 325 mg PO DAILY@1200 30 Days Qty: 30 0RF oxycodone 5 mg Tablet 10 mg PO Q4H PRN PRN (Reason: Pain Score 4-10) 7 Days Qty: 84 0RF enoxaparin 80 mg/0.8 mL Syringe 70 mg subcut Q12H 30 Days Qty: 42 0RF magnesium chloride [Mag 64] 64 mg Tablet,Delayed Release (Dr/Ec) 128 mg PO DAILY 30 Days Qty: 60 0RF Buster (with collagen) 7-7-1.5 gram Powder In Packet 1 packet PO BIDCM 30 Days Qty: 60 0RF Continued acetaminophen 500 mg Tablet 1,000 mg PO Q8 Qty: 0 0RF gabapentin 100 mg Capsule 200 mg PO BIDCM Qty: 0 0RF omeprazole 20 mg capsule,delayed release(DR/EC) 20 mg PO DAILY oxybutynin chloride 10 mg tablet extended release 24hr 10 mg PO DAILY simvastatin 80 mg tablet 80 mg PO QHS fluticasone propionate 50 mcg/actuation spray,suspension 2 spray INTRANASAL DAILY PRN (Reason: nasal congestion) glimepiride 2 mg tablet 2 mg PO DAILY losartan 50 mg Tablet 50 mg PO DINNER 30 Days Qty: 30 2RF furosemide 40 mg Tablet 40 mg PO BIDLX 30 Days Qty: 60 2RF metoprolol succinate 50 mg tablet extended release 24 hr 50 mg PO DAILY 30 Days Qty: 30 2RF spironolactone 25 mg tablet 12.5 mg PO DAILY Qty: 30 2RF Rx Instructions: Hold for serum potassium more than 5.0 Discontinued enoxaparin [Lovenox] 80 mg/0.8 mL syringe 70 mg subcut Q12H 30 Days Qty: 42 0RF sennosides-docusate sodium [Stimulant Laxative Plus] 8.6-50 mg Tablet 2 tab PO DAILY Qty: 0 0RF oxycodone 5 mg Tablet 10 mg PO Q4H PRN PRN (Reason: Pain Score 4-10) 1 Days Qty: 6 0RF Ensure Plus High Protein 0.08 gram-1.5 kcal/mL Liquid 120 ml PO TIDCM Qty: 0 0RF warfarin 2 mg tablet 2 mg PO DAILY Rx Instructions: Pt takes 2mg everyday except for Wednesdays she takes 1 mg tizanidine 4 mg tablet 4 mg PO QHS PRN PRN (Reason: muscle spasm) Referrals / Follow Up: Shaan Rojas MD [Med Staff - Active Staff] - (after d/c from [facility]) Eugene Blanca DPM [Med Staff - Active Staff] - Kendra Lucio MD [Primary Care Provider] - Roly Herrera MD [Med Staff - Active Staff] - Disposition Disposition (needs filled in before D/C Order can be placed): Home Health Service
[2024-02-01 16:00] VITALS: BP 124/56; PULSE 76; RESP 16
[2024-02-01] MEDS: Losartan Potassium 50 MG Tablet PO (17:07)
[2024-02-01] MEDS: Atorvastatin Calcium 40 MG Tablet PO (21:10)
[2024-02-02 06:00] VITALS: BMI 25.9
[2024-02-02] MEDS: Furosemide 40 MG Tablet PO ×2 (06:02→12:56)
[2024-02-02] MEDS: Acetaminophen 500 MG Tablet 1000 MG PO ×3 (06:02→22:06)
[2024-02-02 06:03] VITALS: BP 96/56; PULSE 80
[2024-02-02 06:43] LABS: Bedside Glucose 111 mg/dL (74-106)
[2024-02-02] MEDS: Gabapentin 100 MG Capsule 200 MG PO ×3 (08:16→17:40)
[2024-02-02] MEDS: Ensure Plus High Protein 120 ML LIQUID PO ×3 (08:16→17:40)
[2024-02-02 08:17] VITALS: BP 109/76; PULSE 75; RESP 16; TEMP 36.2; O2SAT 97
[2024-02-02] MEDS: Juven (unflavored) Packet 1 PACKET PO ×2 (08:19→17:34)
[2024-02-02] MEDS: Spironolactone 25 MG Tablet 12.5 MG PO (08:19)
[2024-02-02 08:20] VITALS: BP 109/76; PULSE 75
[2024-02-02] MEDS: Magnesium Chloride 64 MG Delay Rel.Tablet 128 MG PO (08:20)
[2024-02-02] MEDS: Enoxaparin 80 MG/0.8 ML Syringe 70 MG SC ×2 (08:20→22:06)
[2024-02-02] MEDS: Metoprolol(XL)Succ 50 MG Tablet PO (08:20)
[2024-02-02] MEDS: Senna/Docusate Sodium 1 Tablet 2 TABLET PO (08:21)
[2024-02-02] MEDS: Nystatin Powder 15gm Bottle 1 APPLIC TOPICAL (08:21)
[2024-02-02] MEDS: Tolterodine Tartrate 2 MG CAP.SA PO (08:21)
[2024-02-02] MEDS: Pantoprazole Sodium 20 MG Tablet PO (08:21)
[2024-02-02] MEDS: Menthol/Lanolin/Calamine/Znox 113 GM Tube 1 APPLIC TOPICAL ×2 (08:22→22:01)
[2024-02-02] MEDS: Glimepiride 2 MG Tablet PO (08:22)
[2024-02-02] MEDS: oxyCODONE 5 MG Tablet 10 MG PO ×2 (11:21→22:05)
[2024-02-02] MEDS: Ferrous Sulfate 325 MG Tablet PO (12:56)
--- NOTE | 2024-02-02 14:32 | MDS.RN ---
Pain interview for MDS complete.
[2024-02-02] MEDS: Losartan Potassium 50 MG Tablet PO (17:35)
[2024-02-02] MEDS: Atorvastatin Calcium 40 MG Tablet PO (22:06)
[2024-02-03 06:00] VITALS: BMI 25.9
[2024-02-03 06:03] LABS: Absolute Lymphocyte Count 1.91 X10^3/uL (0.83-4.51); Absolute Neutrophil Count 2.5 X10^3/uL (2.0-7.7); Basophil# 0.04 X10^3/uL; Basophil% 0.8 % (0-1); Eosinophil# 0.16 X10^3/uL; Hematocrit 32.5 % (37-47); Hemoglobin 10.1 g/dL (12.0-15.0); Lymphocyte # 1.91 X10^3/ul (0.83-4.51); Mean Corp Hgb Conc 31.1 g/dL (32-36); Mean Corpuscular Hgb 30.6 pg (27.0-32.0); Mean Corpuscular Volume 98.5 fL (81-99); Mean Platelet Vol. 10.3 fl (6.2-12.0); Monocyte# 0.69 X10^3/uL; NRBC Flagged by Analyzer 0.4 % (0-5); Neutrophil # 2.47 X10^3/uL (2.7-7.7); Neutrophil % 46.4 % (47-70); POSITIVE MORPHOLOGY YES; Platelet Count 317 K/mm3 (150-450); RBC Distribution Width CV 18.2 % (11.6-14.6); White Blood Count 5.3 K/mm3 (4.4-11.0)
[2024-02-03 06:17] LABS: Differential Indicated SCAN CRITERIA MET
[2024-02-03 06:26] LABS: Anion Gap 8 (5-15); BUN 61 mg/dL (7-18); BUN/Creat Ratio 56.5 RATIO (10-20); Calcium,Total 9.4 mg/dL (8.5-10.1); Chloride 102 mmol/L (98-107); Creatinine, Serum 1.08 mg/dL (0.55-1.02); EST Glomerular Filtration Rate 51 mL/min (>60); Est Glom Filt Rate - Afr Amer 62 mL/min (>60); Estimated Creatinine Clearance 35.51 ml/min; Glucose 134 mg/dL (74-106); Potassium 3.8 mmol/L (3.5-5.1); Sodium Level 135 mmol/L (136-145)
[2024-02-03 06:30] VITALS: BP 128/64; PULSE 62; RESP 16
[2024-02-03 06:38] LABS: Bedside Glucose 115 mg/dL (74-106)
[2024-02-03] MEDS: Acetaminophen 500 MG Tablet 1000 MG PO ×3 (06:46→22:14)
[2024-02-03] MEDS: Furosemide 40 MG Tablet PO ×2 (06:46→14:01)
[2024-02-03 07:49] LABS: Anisocytosis 1+
[2024-02-03 07:56] VITALS: PULSE 69; RESP 14; O2SAT 99
--- NOTE | 2024-02-03 09:14 | NURSING ---
Second Chef Note; MDS for 02/03/2024 Complete
[2024-02-03] MEDS: Juven (unflavored) Packet 1 PACKET PO ×2 (09:33→17:13)
[2024-02-03] MEDS: Tolterodine Tartrate 2 MG CAP.SA PO (09:34)
[2024-02-03] MEDS: Menthol/Lanolin/Calamine/Znox 113 GM Tube 1 APPLIC TOPICAL ×2 (09:35→23:30)
[2024-02-03] MEDS: Spironolactone 25 MG Tablet 12.5 MG PO (09:35)
[2024-02-03] MEDS: Glimepiride 2 MG Tablet PO (09:36)
[2024-02-03] MEDS: Nystatin Powder 15gm Bottle 1 APPLIC TOPICAL ×2 (09:36→23:30)
[2024-02-03] MEDS: Magnesium Chloride 64 MG Delay Rel.Tablet 128 MG PO (09:36)
[2024-02-03] MEDS: Pantoprazole Sodium 20 MG Tablet PO (09:36)
[2024-02-03 09:37] VITALS: BP 131/66; PULSE 86
[2024-02-03] MEDS: Enoxaparin 80 MG/0.8 ML Syringe 70 MG SC ×2 (09:37→22:14)
[2024-02-03] MEDS: Senna/Docusate Sodium 1 Tablet 2 TABLET PO (09:37)
[2024-02-03] MEDS: Metoprolol(XL)Succ 50 MG Tablet PO (09:37)
[2024-02-03] MEDS: Ensure Plus High Protein 120 ML LIQUID PO ×2 (09:47→17:20)
[2024-02-03] MEDS: oxyCODONE 5 MG Tablet 10 MG PO ×2 (09:47→22:14)
[2024-02-03] MEDS: Gabapentin 100 MG Capsule 200 MG PO ×3 (09:47→17:20)
[2024-02-03 09:51] VITALS: BP 131/66; PULSE 86; O2SAT 97
[2024-02-03] MEDS: Ferrous Sulfate 325 MG Tablet PO (14:01)
--- NOTE | 2024-02-03 14:43 | CASEMGMT ---
Social Work SW met with patient to complete MDS assessment and discuss DC plans. present in room and pt granted permission to complete assessment with present. BIMS () and PHQ-2 (). Pt explained she had some emotional and hard days this past week, but is better now and leans into her danika with God to cope. SW explored further and offered for pt to share feelings. Pt explained she was feeling overwhelmed with everything going on, and it just got the best of me. SW validated feelings and recognized challenging moments. Provided supportive listening as pt shared details of the 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 she was raising. After, SW inquired about pt's interest in medication or counseling services. Pt adamantly denied both and states her and jew family are her support. SW discussed DC plans. Pt has an appt on 02/07 and SW offered to DC prior. Pt and agreeable. SW offered skilled HHC at DC and the w/c. Pt agreed to both, but does not have a preference on HHC agency. SW provided printed list of skilled HHC agencies including quality and resource data via [employer] Guide. Pt to notify this worker with preference. SW referred to [facility] for 18 in w/c via [facility]. Plan: DC home with 02/07, HHC PT/OT/ST/SN, 18 in w/c [facility]
[2024-02-03] MEDS: Losartan Potassium 50 MG Tablet PO (17:13)
[2024-02-03 17:22] VITALS: BP 151/73; PULSE 90; RESP 18; TEMP 36.4; O2SAT 98
[2024-02-03] MEDS: Atorvastatin Calcium 40 MG Tablet PO (22:14)
[2024-02-04] MEDS: Furosemide 40 MG Tablet PO ×2 (06:34→12:52)
[2024-02-04] MEDS: Acetaminophen 500 MG Tablet 1000 MG PO ×3 (06:35→21:03)
[2024-02-04 06:36] VITALS: BP 104/61; PULSE 68
[2024-02-04 06:36] LABS: Bedside Glucose 134 mg/dL (74-106)
[2024-02-04] MEDS: Ensure Plus High Protein 120 ML LIQUID PO ×3 (09:56→17:09)
[2024-02-04] MEDS: Gabapentin 100 MG Capsule 200 MG PO ×3 (09:56→17:09)
[2024-02-04] MEDS: Tolterodine Tartrate 2 MG CAP.SA PO (09:57)
[2024-02-04] MEDS: Glimepiride 2 MG Tablet PO (09:57)
[2024-02-04] MEDS: Juven (unflavored) Packet 1 PACKET PO ×2 (09:57→17:09)
[2024-02-04] MEDS: Pantoprazole Sodium 20 MG Tablet PO (09:57)
[2024-02-04 09:58] VITALS: PULSE 68
[2024-02-04] MEDS: Metoprolol(XL)Succ 50 MG Tablet PO (09:58)
[2024-02-04] MEDS: Magnesium Chloride 64 MG Delay Rel.Tablet 128 MG PO (09:58)
[2024-02-04] MEDS: Spironolactone 25 MG Tablet 12.5 MG PO (09:59)
[2024-02-04] MEDS: Enoxaparin 80 MG/0.8 ML Syringe 70 MG SC ×2 (10:00→21:07)
[2024-02-04] MEDS: Menthol/Lanolin/Calamine/Znox 113 GM Tube 1 APPLIC TOPICAL ×2 (10:02→21:02)
[2024-02-04] MEDS: Nystatin Powder 15gm Bottle 1 APPLIC TOPICAL ×2 (10:02→21:07)
[2024-02-04] MEDS: Ferrous Sulfate 325 MG Tablet PO (10:05)
[2024-02-04] MEDS: Tuberculin,Purif.prot.deriv. 50 TU/ML Vial 0.1 ML ID (10:22)
[2024-02-04] MEDS: oxyCODONE 5 MG Tablet 10 MG PO (12:53)
[2024-02-04 16:00] VITALS: BP 111/73; PULSE 68; RESP 16; TEMP 36.6; O2SAT 99
[2024-02-04] MEDS: Losartan Potassium 50 MG Tablet PO (17:08)
[2024-02-04] MEDS: Atorvastatin Calcium 40 MG Tablet PO (21:04)
[2024-02-04] MEDS: tiZANidine HCl 2 MG Tablet 4 MG PO (21:08)
[2024-02-05 06:00] VITALS: BMI 25.4
[2024-02-05] MEDS: Furosemide 40 MG Tablet PO ×2 (06:18→13:01)
[2024-02-05] MEDS: Acetaminophen 500 MG Tablet 1000 MG PO ×3 (06:18→22:22)
[2024-02-05 06:20] VITALS: BP 114/66; PULSE 75
[2024-02-05 06:37] LABS: Bedside Glucose 133 mg/dL (74-106)
[2024-02-05] MEDS: Glimepiride 2 MG Tablet PO (08:39)
[2024-02-05] MEDS: Spironolactone 25 MG Tablet 12.5 MG PO (08:39)
[2024-02-05] MEDS: Tolterodine Tartrate 2 MG CAP.SA PO (08:40)
[2024-02-05] MEDS: Menthol/Lanolin/Calamine/Znox 113 GM Tube 1 APPLIC TOPICAL ×2 (08:40→22:26)
[2024-02-05] MEDS: Enoxaparin 80 MG/0.8 ML Syringe 70 MG SC ×2 (08:41→22:24)
[2024-02-05] MEDS: Magnesium Chloride 64 MG Delay Rel.Tablet 128 MG PO (08:41)
[2024-02-05] MEDS: Pantoprazole Sodium 20 MG Tablet PO (08:42)
[2024-02-05] MEDS: Nystatin Powder 15gm Bottle 1 APPLIC TOPICAL ×2 (08:42→22:25)
[2024-02-05 08:43] VITALS: BP 121/65; PULSE 84
[2024-02-05] MEDS: Metoprolol(XL)Succ 50 MG Tablet PO (08:43)
[2024-02-05] MEDS: Juven (unflavored) Packet 1 PACKET PO ×2 (08:45→17:20)
[2024-02-05] MEDS: Senna/Docusate Sodium 1 Tablet 2 TABLET PO (08:47)
[2024-02-05] MEDS: Gabapentin 100 MG Capsule 200 MG PO ×3 (08:52→17:18)
[2024-02-05] MEDS: Ensure Plus High Protein 120 ML LIQUID PO ×3 (08:52→17:21)
[2024-02-05 10:00] VITALS: PULSE 68; RESP 15
[2024-02-05] MEDS: oxyCODONE 5 MG Tablet 10 MG PO (10:11)
[2024-02-05] MEDS: Ferrous Sulfate 325 MG Tablet PO (13:03)
[2024-02-05 16:00] VITALS: BP 108/57; PULSE 70; RESP 15; TEMP 36.8; O2SAT 98
[2024-02-05] MEDS: Losartan Potassium 50 MG Tablet PO (17:22)
[2024-02-05] MEDS: tiZANidine HCl 2 MG Tablet 4 MG PO (22:23)
[2024-02-05] MEDS: Atorvastatin Calcium 40 MG Tablet PO (22:23)
--- NOTE | 2024-02-06 01:18 | NURSING ---
Resident awoke reporting difficulty sleeping. Denies any c/o pain. Denies difficulty sleeping at home. Slept well last hs. Resident does not like door closed. Unable to dim light any further in the hallway. TV is off in room. Night light is on in room. Offered to shut off night light in attempt to promote sleep and resident is agreeable. Will continue to monitor.
[2024-02-06] MEDS: Furosemide 40 MG Tablet PO ×2 (05:31→13:37)
[2024-02-06] MEDS: Acetaminophen 500 MG Tablet 1000 MG PO ×3 (05:31→22:05)
[2024-02-06 05:33] VITALS: BP 104/62; PULSE 66
[2024-02-06 06:00] VITALS: BMI 25.4
[2024-02-06 06:13] LABS: Bedside Glucose 142 mg/dL (74-106)
[2024-02-06] MEDS: Juven (unflavored) Packet 1 PACKET PO ×2 (09:09→17:09)
[2024-02-06] MEDS: Menthol/Lanolin/Calamine/Znox 113 GM Tube 1 APPLIC TOPICAL ×2 (09:10→22:06)
[2024-02-06] MEDS: Nystatin Powder 15gm Bottle 1 APPLIC TOPICAL ×2 (09:10→22:06)
[2024-02-06 09:11] VITALS: BP 135/72; PULSE 89
[2024-02-06] MEDS: Metoprolol(XL)Succ 50 MG Tablet PO (09:11)
[2024-02-06] MEDS: Pantoprazole Sodium 20 MG Tablet PO (09:11)
[2024-02-06] MEDS: Tolterodine Tartrate 2 MG CAP.SA PO (09:12)
[2024-02-06] MEDS: Magnesium Chloride 64 MG Delay Rel.Tablet 128 MG PO (09:12)
[2024-02-06] MEDS: Spironolactone 25 MG Tablet 12.5 MG PO (09:13)
[2024-02-06] MEDS: Enoxaparin 80 MG/0.8 ML Syringe 70 MG SC ×2 (09:14→22:04)
[2024-02-06] MEDS: Gabapentin 100 MG Capsule 200 MG PO ×3 (09:22→17:09)
[2024-02-06] MEDS: oxyCODONE 5 MG Tablet 10 MG PO ×2 (09:22→23:40)
[2024-02-06 09:31] VITALS: BP 135/72; PULSE 89; O2SAT 100
[2024-02-06] MEDS: Glimepiride 2 MG Tablet PO (10:26)
[2024-02-06] MEDS: Ferrous Sulfate 325 MG Tablet PO (11:12)
[2024-02-06] MEDS: Ensure Plus High Protein 120 ML LIQUID PO (13:36)
[2024-02-06 14:53] VITALS: BP 126/68; PULSE 89; RESP 18; TEMP 36.3; O2SAT 97
--- NOTE | 2024-02-06 15:10 | WOUNDNOTE ---
Dressing to to the right foot was changed by nursing yesterday. will plan to change the dressing tomorrow.
[2024-02-06] MEDS: Losartan Potassium 50 MG Tablet PO (17:11)
[2024-02-06] MEDS: tiZANidine HCl 2 MG Tablet 4 MG PO (22:03)
[2024-02-06] MEDS: Atorvastatin Calcium 40 MG Tablet PO (22:05)
[2024-02-07] MEDS: Furosemide 40 MG Tablet PO ×2 (05:35→13:40)
[2024-02-07] MEDS: Acetaminophen 500 MG Tablet 1000 MG PO ×3 (05:35→22:03)
[2024-02-07 05:37] VITALS: BP 102/64
[2024-02-07 06:19] LABS: Bedside Glucose 145 mg/dL (74-106)
[2024-02-07 08:08] VITALS: BP 109/62; PULSE 86; RESP 16; TEMP 36.4; O2SAT 98
[2024-02-07] MEDS: Enoxaparin 80 MG/0.8 ML Syringe 70 MG SC ×2 (08:10→22:02)
[2024-02-07 08:11] VITALS: PULSE 86
[2024-02-07] MEDS: Juven (unflavored) Packet 1 PACKET PO ×2 (08:11→17:05)
[2024-02-07] MEDS: Metoprolol(XL)Succ 50 MG Tablet PO (08:11)
[2024-02-07] MEDS: Magnesium Chloride 64 MG Delay Rel.Tablet 128 MG PO (08:11)
[2024-02-07] MEDS: Spironolactone 25 MG Tablet 12.5 MG PO (08:12)
[2024-02-07] MEDS: Pantoprazole Sodium 20 MG Tablet PO (08:12)
[2024-02-07] MEDS: Glimepiride 2 MG Tablet PO (08:13)
[2024-02-07] MEDS: Tolterodine Tartrate 2 MG CAP.SA PO (08:13)
[2024-02-07] MEDS: Gabapentin 100 MG Capsule 200 MG PO ×3 (08:16→17:08)
[2024-02-07] MEDS: Ensure Plus High Protein 120 ML LIQUID PO ×3 (08:17→17:05)
[2024-02-07] MEDS: Menthol/Lanolin/Calamine/Znox 113 GM Tube 1 APPLIC TOPICAL ×2 (08:20→22:06)
[2024-02-07] MEDS: Nystatin Powder 15gm Bottle 1 APPLIC TOPICAL ×2 (08:20→22:03)
[2024-02-07] MEDS: Ferrous Sulfate 325 MG Tablet PO (12:19)
[2024-02-07 12:20] VITALS: BMI 25.4
--- NOTE | 2024-02-07 13:39 | MDS.RN ---
Information for the MDS was obtained from review of the clinical record, interview of resident, staff, and direct observation of resident?s care.
--- NOTE | 2024-02-07 15:00 | WOUNDNOTE ---
Pt out of room working with therapy.
--- NOTE | 2024-02-07 16:25 | CASEMGMT ---
Social Work SW followed up with patient on HHC preference. Pt selected [facility]. SW phoned referral for PT/OT/ST/SN. Accepted with SOC 02/08. [facility]
[2024-02-07] MEDS: Losartan Potassium 50 MG Tablet PO (17:05)
[2024-02-07] MEDS: Atorvastatin Calcium 40 MG Tablet PO (22:02)
[2024-02-07] MEDS: oxyCODONE 5 MG Tablet 10 MG PO (22:03)
[2024-02-08 06:00] VITALS: BMI 25.4
[2024-02-08 06:35] LABS: Bedside Glucose 122 mg/dL (74-106)
[2024-02-08] MEDS: Furosemide 40 MG Tablet PO (06:48)
[2024-02-08] MEDS: Acetaminophen 500 MG Tablet 1000 MG PO (06:48)
[2024-02-08 06:50] VITALS: BP 145/81; PULSE 76; RESP 16; TEMP 36.4; O2SAT 100
[2024-02-08] MEDS: Juven (unflavored) Packet 1 PACKET PO (09:19)
[2024-02-08] MEDS: Glimepiride 2 MG Tablet PO (09:20)
[2024-02-08] MEDS: Magnesium Chloride 64 MG Delay Rel.Tablet 128 MG PO (09:21)
[2024-02-08] MEDS: Nystatin Powder 15gm Bottle 1 APPLIC TOPICAL (09:21)
[2024-02-08 09:22] VITALS: BP 148/72; PULSE 77
[2024-02-08] MEDS: Metoprolol(XL)Succ 50 MG Tablet PO (09:22)
[2024-02-08] MEDS: Tolterodine Tartrate 2 MG CAP.SA PO (09:23)
[2024-02-08] MEDS: Pantoprazole Sodium 20 MG Tablet PO (09:23)
[2024-02-08] MEDS: Menthol/Lanolin/Calamine/Znox 113 GM Tube 1 APPLIC TOPICAL (09:23)
[2024-02-08] MEDS: Ferrous Sulfate 325 MG Tablet PO (09:23)
[2024-02-08] MEDS: Spironolactone 25 MG Tablet 12.5 MG PO (09:24)
[2024-02-08] MEDS: Enoxaparin 80 MG/0.8 ML Syringe 70 MG SC (09:25)
[2024-02-08] MEDS: Gabapentin 100 MG Capsule 200 MG PO ×2 (09:34→11:47)
[2024-02-08 09:37] VITALS: BP 148/72; PULSE 77; RESP 18; TEMP 36.6; O2SAT 99
[2024-02-08] MEDS: oxyCODONE 5 MG Tablet 10 MG PO (11:47)
--- NOTE | 2024-02-08 11:53 | CASEMGMT ---
Social Work BIMS () and PHQ-2 () completed for MDS assessment. Cristal Wu MSW PAINTING MACHINE OPERATOR
--- NOTE | 2024-02-08 12:04 | NURSING ---
PT HOME MED CEPHALEXIN 500 MG GIVEN BACK TO PT. NO PAPER IN LOCKED UP BAG. RN AWARE
[2024-02-08 13:01] VITALS: BP 148/72; PULSE 77; RESP 18; TEMP 36.6; O2SAT 99
== END 2024-02-08 12:20 | disposition home health service (06) | DRG 949 ==
PROVIDERS: Admitting Provider Internal Medicine; PCP Internal Medicine; Referring Provider Internal Medicine; Visit Provider Internal Medicine
DX: Z48.812 Encounter for surgical aftercare following surgery on the circulatory system (principal); D68.2 Hereditary deficiency of other clotting factors; E11.52 Type 2 diabetes mellitus with diabetic peripheral angiopathy with gangrene; I42.0 Dilated cardiomyopathy; I48.20 Chronic atrial fibrillation, unspecified; D68.51 Activated protein C resistance; L89.612 Pressure ulcer of right heel, stage 2; D50.9 Iron deficiency anemia, unspecified; E11.40 Type 2 diabetes mellitus with diabetic neuropathy, unspecified; I11.0 Hypertensive heart disease with heart failure; I77.1 Stricture of artery; I50.9 Heart failure, unspecified; E11.51 Type 2 diabetes mellitus with diabetic peripheral angiopathy without gangrene; K21.9 Gastro-esophageal reflux disease without esophagitis; Z79.01 Long term (current) use of anticoagulants; Z79.84 Long term (current) use of oral hypoglycemic drugs; Z79.51 Long term (current) use of inhaled steroids; Z79.899 Other long term (current) drug therapy; Z23 Encounter for immunization
CPT/HCPCS: 36415; 80048; 80076; 82274; 82962; 83735; 83880; 84132; 85025; 87811; 90480; 91322; 92507; 92523; 97110; 97116; 97129; 97130; 97162; 97166; 97530; 97535; 97802; A4216

== ENCOUNTER → 2024-02-08 | Outpatient (CLI) | payer MEDICARE, SELFPAY ==
--- NOTE | 2024-02-08 13:05 | ART_ITS ---
Reason For Study: S/P FEM-POP BYPASS Procedure A bilateral lower extremity continuous wave Doppler with analog waveform analysis and ankle brachial indexes. Left Segmental Pressures Left brachial= 123mmHg. Left posterior tibial artery = 88mmHg. Left dorsalis pedis artery = 91mmHg. Left digit = 35 mmHg. The left dorsalis pedis waveforms are monophasic. The left posterior tibial artery waveforms are monophasic. Right Segmental Pressures Right brachial= 129mmHg. Right posterior tibial artery = 91mmHg. Right dorsalis pedis artery = 85mmHg. The right dorsalis pedis waveforms are monophasic. The right posterior tibial artery waveforms are monophasic. Indices The right ankle brachial index by the dorsalis pedis is 0.66. The right ankle brachial index by the posterior tibial artery is 0.71. The left ankle brachial index by the dorsalis pedis is 0.71. The left ankle brachial index by the posterior tibial artery is 0.68. The left digital-brachial index is 0.27. VL/Ankle Brachial Index Interpretation Summary Right AYAN 0.71, moderate arterial insufficiency. Doppler/PVR waveforms of the r ight ankle moderately diminished at rest. Left AYAN 0.71, moderate arterial insufficiency. Doppler/PVR waveforms of the le ft ankle moderately diminished at rest. Ordering Physician: Laura Crowell Referring Physician: Kendra Lucio M.D. Performed By: Lacey Samayoa RVT and Student
--- NOTE | 2024-02-08 13:05 | ADUL_ITS ---
Reason For Study: S/P R FEM-POP BYPASS Right Velocities Ext. Iliac Artery, dist = 61.7 cm./sec. Common Femoral Artery, mid = 83.2 cm./sec. Supf Femoral Artery, prox = 67.4 cm./sec. Fem-Pop Bypass Prox to Bypass, 102.1 cm/s Prox Anastamosis, 58.3 cm/s Prox Graft, 38.6 cm/s Mid Graft, 32.0 cm/s Dist Graft, 34.8 cm/s Dist Anastamosis, 31.2 cm/s Dist to Graft, 100.3 cm/s. Profunda Femoral Artery = 60.0 cm./sec. Post. Tibial Artery, prox = 60.3 cm./sec. Post. Tibial Artery, mid = 59.2 cm./sec. Post. Tibial Artery, dist = 38.3 cm./sec. Peroneal Artery, prox = 59.4 cm./sec. Peroneal Artery, mid = 53.7 cm./sec. Peroneal Artery,dist = 32.2 cm./sec. Ant. Tibial Artery, prox = 70.0 cm./sec. Ant. Tibial Artery, mid = 83.8 cm./sec. Ant. Tibial Artery, dist = 50.2 cm./sec. Procedure Exam performed in department. /US Art Duplex Unilat Lower Ext Interpretation Summary Patent right femoral-popliteal bypass graft with diminished velocities and main tained waveforms throughout. Ordering Physician: Laura Crowell Referring Physician: Kendra Lucio M.D. Performed By: Lacey Samayoa RVT and Student
== END | disposition home or self-care (01) ==
LOC: CVS 13:04
PROVIDERS: PCP Internal Medicine; Referring Provider Physician Assistant; Visit Provider Physician Assistant
DX: Z48.812 Encounter for surgical aftercare following surgery on the circulatory system (principal)
CPT/HCPCS: 93922; 93926

== ENCOUNTER → 2024-03-01 | Outpatient (CLI) | payer MEDICARE, SELFPAY ==
--- NOTE | 2024-03-01 07:39 | CT_ITS ---
STUDY: CTA OF THE ABDOMINAL AORTA AND BILATERAL LOWER EXTREMITIES REASON FOR EXAM: Female, 83 years old. S/p R fempop bypass RADIATION DOSAGE (If Supplied By Facility): CTDIvol = ( 8.73 ) mGy, DLP = ( 978.47 ) mGycm TECHNIQUE: Axial CT angiography multi-detector data acquisition was obtained from the dome of the liver to the level of the ankles following intravenous administration of IV 100mL Isovue-370. Axial images and MIP images were reconstructed from the axial data set. Post-processing of the angiographic images was performed, with multiplanar reformation and 3D reconstruction. Individualized dose optimization techniques were used for this CT. TECHNICAL QUALITY: Good COMPARISON: Comparison is made with prior study January 18, 2024. Descriptors of Narrowing: None (0%) Mild (< 50%) Moderate (50-70%) Severe (70-90%) Subtotal/Total Occlusion (90-100%) Non-Evaluable (technically non-diagnostic FINDINGS: Stable mild degree of increased markings at the lung bases suggestive of scarring and/or atelectasis. Fatty infiltration of the liver. Small hiatal hernia. Pancreatic atrophy. There is dilatation of the common bile duct down to the level of the second portion of the duodenum measuring 8 mm. Sigmoid diverticulosis. Status post hysterectomy. Abdominal aorta: Atherosclerotic plaque formation of the abdominal aorta. Celiac and superior mesenteric arteries: Mild degree of nonstenotic plaque formation at the origin of the superior mesenteric artery. Inferior mesenteric artery: No demonstrated narrowing. Right renal artery(arteries): No demonstrated narrowing. Left renal artery(arteries): No demonstrated narrowing. Right common iliac artery: Calcific plaques. Nonstenotic. Right external iliac artery: Nonstenotic calcific plaques. Right internal iliac artery: Nonstenotic calcific plaques. Left common iliac artery: Nonstenotic calcific plaques. Left external iliac artery: No demonstrated narrowing. Left internal iliac artery: No demonstrated narrowing. RIGHT LOWER EXTREMITY Right common femoral artery: No demonstrated narrowing. Right profundus femoris: No demonstrated narrowing. Right superficial femoral: Patent although multiple calcific plaques with focal stenosis in its distal portion. The mid right femoral popliteal graft is patent. Bypass is seen. Right popliteal artery: Mild calcific plaques. Several areas of stenosis. Right tibioperoneal trunk: No demonstrated narrowing. Right anterior tibial artery: Nonvisualization. Right posterior tibial artery: Patent although there are multiple areas of calcific plaques with stenosis. Right peroneal artery: Scattered calcific plaques. LEFT LOWER EXTREMITY Left common femoral artery: No demonstrated narrowing. Left profundus femoris: No demonstrated narrowing. Left superficial femoral: No demonstrated narrowing. Left popliteal artery: No demonstrated narrowing. Left tibioperoneal trunk: No demonstrated narrowing. Left anterior tibial artery: No demonstrated narrowing. Left posterior tibial artery: Patent although multiple focal areas of tight stenosis due to calcific plaques Left peroneal artery: No demonstrated narrowing. CT/CTA Abd w/Runoff W/WO Contrast IMPRESSION: Patency of the right superficial femoral artery to popliteal artery is patent. The remainder the examination is unchanged. Electronically Signed: Luciano Senior MD at 15:10 EDT ,
== END | disposition home or self-care (01) ==
LOC: CT 07:38
PROVIDERS: PCP Internal Medicine; Referring Provider Physician Assistant; Visit Provider Physician Assistant
DX: I73.9 Peripheral vascular disease, unspecified (principal); Z98.890 Other specified postprocedural states; I70.0 Atherosclerosis of aorta
CPT/HCPCS: 75635

== ENCOUNTER 2024-03-07 20:44 | Inpatient (IN) | payer MEDICARE, SELFPAY ==
[2024-03-07 20:44] VITALS: BP 148/85; PULSE 85; RESP 16; TEMP 37.1; O2SAT 99; BMI 25.7
[2024-03-07 21:46] VITALS: BP 133/88; PULSE 84; RESP 17; TEMP 36.6; O2SAT 97
[2024-03-07 22:00] VITALS: BP 143/87; PULSE 89; RESP 18; TEMP 37; O2SAT 97
--- NOTE | 2024-03-07 22:09 | EDS_ITS ---
HPI History of Present Illness Chief Complaint: Wound Check Narrative Narrative: Chief complaint and HPI: Concern for wet gangrene. 83F with history of dry gangrene of the right toes and s/p Aortogram RLE runoff with unsuccessful attempts at intervention and subsequent R SFA-pop bypass with PTFE on 01/19/24 performed secondary to acute RLE ischemia and popliteal occlusion presents for evaluation for concern of wet gangrene. Patient was sent in by Dr. Blanca. Patient has had dry gangrene of the right toes since her ischemic episode. They have been monitored closely with podiatry with periodic iodine dressings and close wound care follow-up. Today the home nurse came out to dress her foot and was concerned about possible infection. Patient states she has noticed increased swelling in the foot over the past several days but states her Lasix was also changed. She has slightly more erythema at the bases of the toes as well as drainage between the webspace of the third and fourth toe. Patient denies any fever, chills, nausea, vomiting. She states pain is no worse than h er baseline. Review of systems: See HPI Medications: As listed on the chart Allergies: As listed on the chart PFSH: Per chart Vital signs: As listed on the chart. Reviewed. Physical exam: Gen: A&O x3, NAD Head: Normocephalic, atraumatic Eyes: No sclera icterus, conjunctiva clear ENT: Moist mucous membranes CV: RRR, no murmurs, no peripheral edema Resp: Lungs CTA BL, no w/r/c Musc: Full ROM, no deformity, right foot has +1 pitting edema compared to the left, she has dry gangrene of the right toes with concern for possible wet gangrene in the interspace between the third and fourth toe. She has mild erythema at the base of all the toes. No purulence. No foul odor. No crepitus. No bullae. Mild tenderness to palpation throughout. Neuro: Alert, oriented, grossly intact Psych: Cooperative, appropriate mood and affect [facility] Medical History Prolonged QT interval Elevated blood pressure reading without diagnosis of hypertension Dilated cardiomyopathy Factor V Leiden Anxiety Hypokalemia Acute hypoxemic respiratory failure CHF (congestive heart failure) Home Medications ?Medication ?Instructions ?Recorded ?Last Taken ?Type oxybutynin chloride 10 mg 10 mg PO DAILY bladder 09/23/23 01/27/24 History tablet,extended release 24 hr simvastatin 80 mg tablet 80 mg PO QHS cholesterol 09/23/23 01/26/24 History fluticasone propionate 50 2 spray intranasal DAILY PRN nasal 12/31/23 12/31/23 History mcg/actuation nasal congestion spray,suspension glimepiride 2 mg tablet 2 mg PO DAILY dm 12/31/23 Unknown History furosemide 40 mg tablet 40 mg PO BIDLX water pill 30 days 01/03/24 01/27/24 Rx #60 tabs losartan 50 mg tablet 50 mg PO DINNER blood pressure 30 01/03/24 01/21/24 Rx days #30 tabs metoprolol succinate 50 mg 50 mg PO DAILY heart rate 1 month 01/03/24 01/21/24 Rx tablet,extended release 24 hr #30 tabs spironolactone 25 mg tablet 12.5 mg (1/2 x 25 mg) PO DAILY 01/03/24 01/21/24 Rx water pill #30 tabs acetaminophen 500 mg tablet 1,000 mg (2 x 500 mg) PO Q8 pain 01/27/24 01/27/24 Rx #0 tabs ferrous sulfate 325 mg (65 mg 325 mg PO DAILY@1200 30 days #30 02/03/24 Unknown Rx iron) tablet (FeroSul) tabs magnesium chloride 64 mg 128 mg (2 x 64 mg) PO DAILY 30 02/03/24 Unknown Rx (magnesium chloride) days #60 tabs tablet,delayed release (Mag 64) oxycodone 5 mg tablet 10 mg (2 x 5 mg) PO Q4H PRN PRN 02/03/24 Unknown Rx Pain Score 4-10 7 days #84 tabs sennosides 8.6 mg-docusate sodium 2 tab PO DAILY 30 days #60 tabs 02/03/24 Unknown Rx 50 mg tablet (Stimulant Laxative Plus) tramadol 50 mg tablet 50 mg PO Q8H PRN PRN PAIN 1-3 7 02/03/24 Unknown Rx days #21 tabs cranberry fruit concentrate 1 tab PO DAILY 03/07/24 Unknown History sertraline 25 mg tablet 25 mg PO DAILY 03/07/24 Unknown History warfarin 2 mg tablet 4 mg PO DAILY 03/07/24 Unknown History Allergy/AdvReac Type Severity Reaction Status Date / Time benazepril (From Lotensin) Allergy Mild DOESNT Verified 03/07/24 20:46 REMEMBER quinapril (From Accupril) Allergy Mild UNKNOWN Verified 03/07/24 20:46 Sulfa (Sulfonamide Allergy Mild Hives Verified 03/07/24 20:46 Antibiotics) verapamil (From Calan) Allergy Mild UNKNOWN Verified 03/07/24 20:46 Surgical History History of femoropopliteal bypass S/P carotid endarterectomy Social History Smoking Status: Never smoker EXAM Physical Exam Const Vital Signs: 03/07/24 20:44 03/07/24 21:46 03/07/24 22:00 Temperature 98.8 F 98 F 98.6 F Temperature Source Oral Oral Oral Pulse Rate 85 84 89 Respiratory Rate 16 17 18 Blood Pressure 148/85 H 133/88 H 143/87 H Blood Pressure Mean 106 103 105 Pulse Ox 99 97 97 Oxygen Delivery Method Room Air Room Air Room Air 03/07/24 23:00 03/07/24 23:18 Temperature 98.6 F 98.6 F Temperature Source Oral Pulse Rate 90 88 Respiratory Rate 16 18 Blood Pressure 143/87 H 138/67 H Blood Pressure Mean 105 90 Pulse Ox 98 97 Oxygen Delivery Method Room Air MDM MDM MDM Narrative Medical decision making narrative: 83-year-old female with history of dry gangrene of the right toes and PVD presents for evaluation for concern of wet gangrene. See physical exam findings. Differential diagnosis includes but is not limited to wet gangrene, dry gangrene, cellulitis, osteomyelitis. Basic labs ordered including ESR and CRP. Blood culture obtained. X-ray of the right foot ordered. CBC without leukocytosis or anemia. BMP with worsening renal insufficiency with a creatinine of 1.16. CRP mildly elevated at 11.3. ESR within normal limits. X-ray of the left foot shows cortical lucency and demineralization along the lateral base of the first distal phalanx suggesting osteomyelitis at this location. Diffuse soft tissue swelling. Given these findings Zosyn and vancomycin were ordered. Dr. Blanca was contacted and patient was discussed. He agrees with admission for IV antibiotics he will see the patient tomorrow in consult. Recommends medical admission. Patient was updated on the results and confirmed understanding of the plan. Hospital service was contacted and patient was discussed. Dr. Delgadillo agrees with admission. Impression: 1. Concern for wet gangrene of the right toes 2. First right toe osteomyelitis Lab Data Labs: Laboratory Results - last 24 hr 03/07/24 22:21 WBC 5.0 RBC 3.87 L Hgb 12.3 Hct 37.6 MCV 97.2 MCH 31.8 MCHC 32.7 RDW Std Deviation 56.6 H RDW Coeff of Kate 15.9 H Plt Count 249 MPV 9.8 Immature Gran % (Auto) 0.200 Neut % (Auto) 52.8 Lymph % (Auto) 36.0 [place] % (Auto) 9.0 Eos % (Auto) 1.6 Baso % (Auto) 0.4 Absolute Neuts (auto) 2.6 Absolute Lymphs (auto) 1.80 Nucleated RBC % 0 ESR 17 Sodium 138 Potassium 3.8 Chloride 106 Carbon Dioxide 25.0 Anion Gap 7 BUN 41 H Creatinine 1.16 H Estim Creat Clear Calc 32.94 Est GFR (MDRD) Af Amer 57 L Est GFR (MDRD) Non-Af 47 L BUN/Creatinine Ratio 35.3 H Glucose 150 H Calcium 9.3 C-React Prot Ext Range 11.30 H Radiography Diagnostic Testing: Clinical Impression(s) from Imaging Studies Foot X-Ray 03/07/24 22:20 IMPRESSION: Cortical lucency and demineralization along the lateral base of the first distal phalanx is evident compared to the prior examination suggesting osteomyelitis at this location. Electronically Signed: Vel Ramos DO at 22:57 EST , Discharge Plan Triage Chief Complaint: Wound Check ED Provider: Ganesh Bansal Dx/Rx/DC Orders Prescriptions: No Action acetaminophen 500 mg Tablet 1,000 mg PO Q8 Qty: 0 0RF sennosides-docusate sodium [Stimulant Laxative Plus] 8.6-50 mg Tablet 2 tab PO DAILY 30 Days Qty: 60 0RF tramadol 50 mg Tablet 50 mg PO Q8H PRN PRN (Reason: PAIN 1-3) 7 Days Qty: 21 0RF ferrous sulfate [FeroSul] 325 mg (65 mg iron) Tablet 325 mg PO DAILY@1200 30 Days Qty: 30 0RF oxycodone 5 mg Tablet 10 mg PO Q4H PRN PRN (Reason: Pain Score 4-10) 7 Days Qty: 84 0RF magnesium chloride [Mag 64] 64 mg Tablet,Delayed Release (Dr/Ec) 128 mg PO DAILY 30 Days Qty: 60 0RF oxybutynin chloride 10 mg tablet extended release 24hr 10 mg PO DAILY simvastatin 80 mg tablet 80 mg PO QHS fluticasone propionate 50 mcg/actuation spray,suspension 2 spray INTRANASAL DAILY PRN (Reason: nasal congestion) glimepiride 2 mg tablet 2 mg PO DAILY losartan 50 mg Tablet 50 mg PO DINNER 30 Days Qty: 30 2RF furosemide 40 mg Tablet 40 mg PO BIDLX 30 Days Qty: 60 2RF metoprolol succinate 50 mg tablet extended release 24 hr 50 mg PO DAILY 30 Days Qty: 30 2RF spironolactone 25 mg tablet 12.5 mg PO DAILY Qty: 30 2RF Rx Instructions: Hold for serum potassium more than 5.0 sertraline 25 mg tablet 25 mg PO DAILY warfarin 2 mg tablet 4 mg PO DAILY cranberry fruit concentrate 1 tab PO DAILY Primary Care Provider: Kendra Lucio Referrals: Kendra Lucio MD [Primary Care Provider] - Print Language: Vietnamese
--- NOTE | 2024-03-07 22:20 | RAD_ITS ---
EXAM: XR RIGHT FOOT COMPLETE, 3 OR MORE VIEWS CLINICAL INDICATION: Pain, concern for osteomyelitis TECHNIQUE: Frontal, lateral and oblique views of the right foot. COMPARISON: 01/13/2024. FINDINGS: BONES/JOINTS: Cortical lucency and demineralization along the lateral base of the first distal phalanx is evident compared to the prior examination suggesting osteomyelitis at this location. Calcaneal spur. No acute fracture. No subluxation. Normal alignment. Preservation of the joint space. SOFT TISSUES: Diffuse soft tissue swelling. No radiopaque foreign body. VASCULATURE: Vascular calcifications. RAD/Foot min 3 Views IMPRESSION: Cortical lucency and demineralization along the lateral base of the first distal phalanx is evident compared to the prior examination suggesting osteomyelitis at this location. Electronically Signed: Vel Ramos DO at 22:57 EST ,
[2024-03-07 22:33] LABS: Absolute Neutrophil Count 2.6 X10^3/uL (2.0-7.7); Basophil# 0.02 X10^3/uL; Basophil% 0.4 % (0-1); Eosinophil# 0.08 X10^3/uL; Eosinophils% 1.6 % (0-5); Hematocrit 37.6 % (37-47); Hemoglobin 12.3 g/dL (12.0-15.0); Mean Corp Hgb Conc 32.7 g/dL (32-36); Mean Corpuscular Hgb 31.8 pg (27.0-32.0); Mean Corpuscular Volume 97.2 fL (81-99); Mean Platelet Vol. 9.8 fl (6.2-12.0); Monocyte# 0.45 X10^3/uL; NRBC Flagged by Analyzer 0 % (0-5); Neutrophil # 2.64 X10^3/uL (2.7-7.7); Neutrophil % 52.8 % (47-70); Platelet Count 249 K/mm3 (150-450); RBC Distribution Width CV 15.9 % (11.6-14.6); RBC Distribution Width SD 56.6 fl (35.1-43.9); Red Blood Count 3.87 M/mm3 (4.2-5.4)
[2024-03-07 22:51] LABS: Erythrocyte Sedimentation Rate 17 mm/hr (0-30)
[2024-03-07 22:52] LABS: Anion Gap 7 (5-15); BUN 41 mg/dL (7-18); BUN/Creat Ratio 35.3 RATIO (10-20); Calcium,Total 9.3 mg/dL (8.5-10.1); Chloride 106 mmol/L (98-107); Creatinine, Serum 1.16 mg/dL (0.55-1.02); EST Glomerular Filtration Rate 47 mL/min (>60); Est Glom Filt Rate - Afr Amer 57 mL/min (>60); Estimated Creatinine Clearance 32.94 ml/min; Glucose 150 mg/dL (74-106); Potassium 3.8 mmol/L (3.5-5.1); Sodium Level 138 mmol/L (136-145)
[2024-03-07 23:00] VITALS: BP 143/87; PULSE 90; RESP 16; TEMP 37; O2SAT 98
[2024-03-07 23:18] VITALS: BP 138/67; PULSE 88; RESP 18; TEMP 37; O2SAT 97
--- NOTE | 2024-03-07 23:31 | HP.PCM.HOS_ITS ---
[facility] - General General Date of Admission: 03/08/24 Date of Service: 03/07/24 Chief Complaint: Right Foot Pain and Discoloration. [facility] Narrative JAROD PRITCHARD, is a 83 F who presents with a past medical history of essential hypertension, hyperlipidemia, overweight; with BMI of 25.7 this admission, Pwtnwy-P-Kmyzjy deficiency; on Warfarin, DM-2; of unknown control on Glimepiride, history of CHF; on Lasix, Metoprolol and Aldactone, history of dilated cardiomyopathy; with LVEF ~35% (01/2024), history of prolonged QT- interval, history of carotid stenosis; s/p carotid endarterectomy, depression with anxiety; on sertraline, JOAO, overactive bladder, history of stage II decubitus ulcer, chronic debility, OA and history of PVD; with RLE ischemia with popliteal occlusion; s/p aortogram with runoff with unsuccessful attempts at intervention with subsequent Right SFA-popliteal bypass with PTFE on January 19, [address] Rojas of vascular surgery - and she also followed by Dr. Blanca of the podiatry service with subsequent dry gangrene of the toes of the Right foot since her ischemic episode and subsequent intervention. She has been treated with periodic iodine dressings with an apparent strategy of waiting to see a clear line of demarcation for planned amputation. Unfortunately, the patient's home health RN came over today and noted increased Right foot swelling with discoloration and signs of wet gangrene with more erythema at the base of her toes as well as drainage between the webspace of the 3rd and 4th toe consistent with suspected underlying abscess and/or osteomyelitis so she was sent in to the ER by Dr. Blanca for further evaluation and treatment. She denies associated fever, chills, nausea, vomiting diarrhea, constipation or SOB and she states the pain emanating from her Right foot is becoming worse in addition to heightened anxiety over potential surgery. In the ER she was noted to have radiographic evidence of cortical lucency and demineralization along the lateral base of the first distal phalanx evident compared to prior examination suggestive of Osteomyelitis complicated by clinical evidence of Wet Gangrene after recent vascular surgery on the RLE for PVD causing RLE ischemia with Dr. Blanca recommending to the ER physician that his patient be admitted to the hospitalist service and he will consult in the AM for needed amputation which was done. She was then admitted to the PCU for ongoing care for a stay that is expected to extend beyond 2 midnights. [facility] Medical History Prolonged QT interval Elevated blood pressure reading without diagnosis of hypertension Dilated cardiomyopathy Factor V Leiden Anxiety Hypokalemia Acute hypoxemic respiratory failure CHF (congestive heart failure) Home Medications ?Medication ?Instructions ?Recorded ?Last Taken ?Type oxybutynin chloride 10 mg 10 mg PO DAILY bladder 09/23/23 01/27/24 History tablet,extended release 24 hr simvastatin 80 mg tablet 80 mg PO QHS cholesterol 09/23/23 01/26/24 History fluticasone propionate 50 2 spray intranasal DAILY PRN nasal 12/31/23 12/31/23 History mcg/actuation nasal congestion spray,suspension glimepiride 2 mg tablet 2 mg PO DAILY dm 12/31/23 Unknown History furosemide 40 mg tablet 40 mg PO BIDLX water pill 30 days 01/03/24 01/27/24 Rx #60 tabs losartan 50 mg tablet 50 mg PO DINNER blood pressure 30 01/03/24 01/21/24 Rx days #30 tabs metoprolol succinate 50 mg 50 mg PO DAILY heart rate 1 month 01/03/24 01/21/24 Rx tablet,extended release 24 hr #30 tabs spironolactone 25 mg tablet 12.5 mg (1/2 x 25 mg) PO DAILY 01/03/24 01/21/24 Rx water pill #30 tabs acetaminophen 500 mg tablet 1,000 mg (2 x 500 mg) PO Q8 pain 01/27/24 01/27/24 Rx #0 tabs ferrous sulfate 325 mg (65 mg 325 mg PO DAILY@1200 30 days #30 02/03/24 Unknown Rx iron) tablet (FeroSul) tabs magnesium chloride 64 mg 128 mg (2 x 64 mg) PO DAILY 30 02/03/24 Unknown Rx (magnesium chloride) days #60 tabs tablet,delayed release (Mag 64) oxycodone 5 mg tablet 10 mg (2 x 5 mg) PO Q4H PRN PRN 02/03/24 Unknown Rx Pain Score 4-10 7 days #84 tabs sennosides 8.6 mg-docusate sodium 2 tab PO DAILY 30 days #60 tabs 02/03/24 Unknown Rx 50 mg tablet (Stimulant Laxative Plus) tramadol 50 mg tablet 50 mg PO Q8H PRN PRN PAIN 1-3 7 02/03/24 Unknown Rx days #21 tabs cranberry fruit concentrate 1 tab PO DAILY 03/07/24 Unknown History sertraline 25 mg tablet 25 mg PO DAILY 03/07/24 Unknown History warfarin 2 mg tablet 4 mg PO DAILY 03/07/24 Unknown History Allergy/AdvReac Type Severity Reaction Status Date / Time benazepril (From Lotensin) Allergy Mild DOESNT Verified 03/07/24 20:46 REMEMBER quinapril (From Accupril) Allergy Mild UNKNOWN Verified 03/07/24 20:46 Sulfa (Sulfonamide Allergy Mild Hives Verified 03/07/24 20:46 Antibiotics) verapamil (From Calan) Allergy Mild UNKNOWN Verified 03/07/24 20:46 Surgical History History of femoropopliteal bypass S/P carotid endarterectomy Social History Smoking Status: Never smoker ROS ROS Narrative Review of Systems: Constitutional: Patient denies fevers or chills. Eyes: Patient denies changes in vision or discharge from eyes. ENT: Patient denies runny nose, sore throat or ear pain. Resp: Patient denies SOB or cough. CV: Patient admits to Right foot swelling but she denies chest pain or palpitations. GI: Patient denies nausea, vomiting, diarrhea or constipation. : Patient denies dysuria or hematuria. MSK: Patient admits to severe Right foot pain. Skin: Patient has redness and swelling of Right foot with TTP and pain with weight bearing. Psych: Patient admits to severe anxiety but she denies SI or HI. Neuro: Patient admits to severe pain in her Right foot but she denies focal neurologic deficits. Allergy: Patient denies lip swelling, tongue swelling or urticaria. Hematology: Patient denies easy bleeding or easy bruisability. Endocrinology: Patient denies polyuria, polydipsia and polyphagia. 14 point ROS otherwise negative except for positives noted above. Vital Signs Vital Signs Vital Signs: 03/07/24 20:44 03/07/24 21:46 03/07/24 22:00 Temperature 98.8 F 98 F 98.6 F Temperature Source Oral Oral Oral Pulse Rate 85 84 89 Respiratory Rate 16 17 18 Blood Pressure 148/85 H 133/88 H 143/87 H Blood Pressure Mean 106 103 105 Pulse Ox 99 97 97 Oxygen Delivery Method Room Air Room Air Room Air 03/07/24 23:00 03/07/24 23:18 Temperature 98.6 F 98.6 F Temperature Source Oral Pulse Rate 90 88 Respiratory Rate 16 18 Blood Pressure 143/87 H 138/67 H Blood Pressure Mean 105 90 Pulse Ox 98 97 Oxygen Delivery Method Room Air Weight Weight: 145 lb 4.8 oz Body Mass Index (BMI) 25.7 Physical Exam Const alert, oriented x3, no apparent distress and average body habitus General Appearance: cooperative HEENT normocephalic, head/scalp atraumatic, hearing grossly normal bilaterally and moist oral mucous membranes Eyes PERRL and EOMs intact bilaterally Neck no lymphadenopathy and supple Resp normal respiratory effort, no retractions, no use of accessory muscles and clear to auscultation bilaterally Cardio regular rate and regular rhythm GI normal to inspection, nondistended, normoactive bowel sounds, soft to palpation, non-tender and non-distended Extremity Extremity Narrative: Patient has evidence of wet gangrene between the 3rd and 4th toes of the Right foot with dry gangrene of the more proximal tissues bordered by increased erythema at the base of the toes of the Right foot with TTP throughout. Skin Skin Narrative: Patient has evidence of wet gangrene between the 3rd and 4th toes of the Right foot with dry gangrene of the more proximal tissues bordered by increased erythema at the base of the toes of the Right foot with TTP throughout. Neuro oriented x3, CN's II-XII intact bilaterally, moves all extremities and no focal motor deficits Sensorium / Orientation: awake, alert, oriented to person, oriented to place and oriented to time Speech: speech normal Psych Mood & Affect: anxious Results Medical Records Data Attestation: I reviewed the patient's medical records Lab / Micro Data Attestation: I reviewed the patient's lab results. 03/08/24 05:15 03/07/24 22:21 Labs: Laboratory Results - last 24 hr 03/07/24 22:21: WBC 5.0, RBC 3.87 L, Hgb 12.3, Hct 37.6, MCV 97.2, MCH 31.8, MCHC 32.7, RDW Std Deviation 56.6 H, RDW Coeff of Kate 15.9 H, Plt Count 249, MPV 9.8, Immature Gran % (Auto) 0.200, Neut % (Auto) 52.8, Lymph % (Auto) 36.0, [place] % (Auto) 9.0, Eos % (Auto) 1.6, Baso % (Auto) 0.4, Absolute Neuts (auto) 2.6, Absolute Lymphs (auto) 1.80, Nucleated RBC % 0, ESR 17, Sodium 138, Potassium 3.8, Chloride 106, Carbon Dioxide 25.0, Anion Gap 7, BUN 41 H, Creatinine 1.16 H , Estim Creat Clear Calc 32.94, Est GFR (MDRD) Af Amer 57 L, Est GFR (MDRD) Non- Af 47 L, BUN/Creatinine Ratio 35.3 H, Glucose 150 H, Calcium 9.3, C-React Prot Ext Range 11.30 H Imaging Radiology Impression Foot X-Ray 03/07/24 22:20 IMPRESSION: Cortical lucency and demineralization along the lateral base of the first distal phalanx is evident compared to the prior examination suggesting osteomyelitis at this location. Electronically Signed: Vel Ramos DO at 22:57 EST , Assessment & Plan Assessment/Plan (1) Osteomyelitis of ankle or foot, right, acute: (2) Cellulitis: QUALIFIERS: Laterality: right Site of cellulitis: extremity Site of cellulitis of extremity: toe Qualified Code(s): L03.031 - Cellulitis of right toe (3) Diabetic wet gangrene of the foot: (4) Dry gangrene: (5) Peripheral vascular disease: (6) History of femoropopliteal bypass: (7) Factor V Leiden: (8) Debility: (9) Osteoarthritis: QUALIFIERS: Osteoarthritis location: unspecified site O steoarthritis type: primary Qualified Code(s): M19.91 - Primary osteoarthritis, unspecified site (10) Overweight (BMI 25.0-29.9): (11) Dilated cardiomyopathy: PLAN: Plan 1. Osteomyelitis and Cellulitis complicated by clinical evidence of Dry Gangrene with recent conversion to Wet Gangrene after recent vascular surgery on the RLE for PVD on January 19, [address] Rojas of vascular surgery causing ischemia in the toes of the Right foot - Admit to PCU and keep NPO for impending partial Right foot amputation. Continue empiric IV Vancomycin and IV Zosyn begun in the ER and await culture and sensitivity data. Give Tylenol prn for [id number] (level 1-5/10) pain or fever. Continue Oxycodone for severe (level 6-10/10) pain. Type & Screen blood in case transfusion is necessary after surgery. Finally, a consult has been placed to Dr. Blanca to see his patient on-rounds in the AM with help appreciated in advance. 2. [id number]-Imveyz deficiency; on Warfarin complicating #1 - Hold Warfarin with impending amputation. Check PT/INR. 3. DM-2; of unknown control on Glimepiride compounding #1 & #2 - Hold Glimepiride and keep NPO for now. Check FSBS q. 6 hours plus SSI. Check HgbA1c to objectively assess quality of diabetic control. 4. Overweight; with BMI of 25.7 this admission with Chronic Debility with OA adding to the medical complexity of #1 - #3 - Weight loss will be recommended. Check TSH. PT/OT and Case Management to consult and treat on-rounds in the AM for further recommendations with help appreciated in advance. These issues complicate her case and may hamper recovery. 5. Essential hypertension - Decrease Lasix to once daily and continue Aldactone and Losartan. Give Hydralazine IV prn for systolic blood pressure > 160 mmHg. 6. Hyperlipidemia - Resume statin at decreased recommended dose for her age and check Lipid Profile. 7. History of CHF; on Lasix, Metoprolol and Aldactone - Stable with no current signs of volume overload. Decrease Lasix but continue other agents as previous. 8. History of dilated cardiomyopathy with LVEF ~35% (01/2024) - Noted. 9. History of prolonged QT-interval - Stable. Minimize potentially QT- prolonging agents if possible. 10. History of carotid stenosis; s/p carotid endarterectomy - Noted. 11. Depression with anxiety; on sertraline - Maintain current regimen. 12. JOAO - Stable with hemoglobin of 12.3 g/dL present on admission. 13. Overactive bladder - Resume Oxybutynin as before. 14. History of stage II decubitus ulcer - Noted. 15. DVT prophylaxis - Check PT/INR with patient on Warfarin. Hold anticoagulants with impending amputations. SCD's ordered. Total time: Approximately (but not less than) 75 minutes. Charges/Coding Visit Charges Inpatient E&M: 65877 Init Hosp L3
[2024-03-07] MEDS: Piperacil/Tazobactam 4.5 GM in 0.9% Normal Saline (100mL MB+) 100 ML IV (23:34)
[2024-03-08] VITALS (8 sets, daily range): BP systolic 106–140; BP diastolic 55–67; PULSE 69–80; RESP 16–18; TEMP 36.1–36.9; O2SAT 96–100; BMI 26.0; BMI 25.2
[2024-03-08] MEDS: Vancomycin HCl 1,750 MG in 0.9% Normal Saline (500mL Bag) 500 ML 250 MG IV (00:20)
[2024-03-08 00:55] LABS: Prothrombin Time (Protime)PT. 42.9 SECONDS (11.7-14.9)
[2024-03-08 01:03] LABS: International Normalized Ratio 4.6
--- NOTE | 2024-03-08 01:34 | PCM.RX.CS ---
Consult Antibiotic Management Pharmacy has been consulted to manage selected antibiotic: Vancomycin Type of Intervention Type of Consult: New start Suspected Infection Suspected Infection: Osteomyelitis Labs Labs: Sodium 138 mmol/L (136-145) 03/07/24 22:21 Potassium 3.8 mmol/L (3.5-5.1) 03/07/24 22:21 Chloride 106 mmol/L (98-107) 03/07/24 22:21 Carbon Dioxide 25.0 mmol/L (21.0-32.0) 03/07/24 22:21 Anion Gap 7 (5-15) 03/07/24 22:21 BUN 41 mg/dL (7-18) H 03/07/24 22:21 Creatinine 1.16 mg/dL (0.55-1.02) H 03/07/24 22:21 Est GFR (MDRD) Af Amer 57 mL/min (>60) L 03/07/24 22:21 Est GFR (MDRD) Non-Af 47 mL/min (>60) L 03/07/24 22:21 BUN/Creatinine Ratio 35.3 RATIO (10-20) H 03/07/24 22:21 Glucose 150 mg/dL (74-106) H 03/07/24 22:21 Dosing Weight Weight used for dosin kg Estimated Creatinine Clearance Estimated Creatinine Clearance: 33 Goal Trough Goal Trough: 15-20 mcg/mL Pharmacy Plan for Drug Dosing Pharmacy Plan for Drug Dosing: Pharmacy Service will continue to monitor and adjust dosing as required. Follow-Up Labs Follow-Up Labs: Trough: Vancomycin Date/Time Labs Ordered Labs to be done on [date and time ordered]: 03/10/24 @0000
[2024-03-08] MEDS: oxyCODONE 5 MG Tablet 10 MG PO ×5 (01:37→20:20)
[2024-03-08] MEDS: MELATONIN 3 MG TABLET PO (01:41)
[2024-03-08] MEDS: 0.9% Normal Saline (1000mL) 1,000 ML 50 ML IV (01:45)
[2024-03-08] MEDS: Phytonadione (neonatal) 1 MG/0.5 ML AMPUL PO (02:55)
[2024-03-08] MEDS: Acetaminophen 325 MG Tablet 650 MG PO ×2 (03:00→10:59)
[2024-03-08] MEDS: Piperacil/Tazobactam 3.375 GM in 0.9% Normal Saline (50mL MB+) 50 ML IV ×3 (05:32→20:14)
--- NOTE | 2024-03-08 05:55 | EKG12_ITS ---
Test Reason : PRE OP Blood Pressure : */* mmHG Vent. Rate : 74 BPM Atrial Rate : * BPM P-R Int : * ms QRS Dur : 80 ms QT Int : 396 ms P-R-T Axes : * -42 144 degrees QTcB Int : 439 ms Atrial fibrillation Left axis deviation Inferior infarct , age undetermined Anterior infarct T wave abnormality, consider lateral ischemia Abnormal ECG Confirmed by Roly Herrera ([id number]), research editor CHINA ADAMES ([id number]) on 03/09/2024 8:21:07 AM Referred By: Confirmed By: Roly Herrera
[2024-03-08 06:34] LABS: Absolute Lymphocyte Count 1.74 X10^3/uL (0.83-4.51); Absolute Neutrophil Count 2.3 X10^3/uL (2.0-7.7); Basophil# 0.03 X10^3/uL; Basophil% 0.7 % (0-1); Eosinophil# 0.11 X10^3/uL; Eosinophils% 2.4 % (0-5); Hematocrit 34.1 % (37-47); Hemoglobin 10.7 g/dL (12.0-15.0); Lymphocyte # 1.74 X10^3/ul (0.83-4.51); Lymphocyte % 37.9 % (19-41); Mean Corp Hgb Conc 31.4 g/dL (32-36); Mean Corpuscular Volume 98.8 fL (81-99); Mean Platelet Vol. 10.1 fl (6.2-12.0); Monocyte# 0.43 X10^3/uL; Monocyte% 9.4 % (0-10); NRBC Flagged by Analyzer 0 % (0-5); Neutrophil # 2.26 X10^3/uL (2.7-7.7); Neutrophil % 49.2 % (47-70); Platelet Count 228 K/mm3 (150-450); RBC Distribution Width CV 15.6 % (11.6-14.6); RBC Distribution Width SD 56.7 fl (35.1-43.9); Red Blood Count 3.45 M/mm3 (4.2-5.4); White Blood Count 4.6 K/mm3 (4.4-11.0)
[2024-03-08 07:06] LABS: International Normalized Ratio 4.7; Partial Thromboplast Time 64.8 Seconds (24.1-36.2); Prothrombin Time (Protime)PT. 43.5 SECONDS (11.7-14.9)
[2024-03-08 07:20] LABS: Bedside Glucose 107 mg/dL (74-106)
[2024-03-08 07:41] LABS: ALB/GLOB Ratio 0.9 RATIO (0.9-2.4); AST(SGOT) 33 U/L (15-37); Alanine Aminotransfer ALT/SGPT 37 U/L (13-56); Albumin, Serum 2.9 g/dL (3.2-5.0); Alkaline Phosphatase 52 U/L (45-117); Anion Gap 5 (5-15); BUN 33 mg/dL (7-18); BUN/Creat Ratio 32.4 RATIO (10-20); Calcium,Total 8.5 mg/dL (8.5-10.1); Chloride 111 mmol/L (98-107); Creatinine, Serum 1.02 mg/dL (0.55-1.02); EST Glomerular Filtration Rate 55 mL/min (>60); Est Glom Filt Rate - Afr Amer 66 mL/min (>60); Estimated Creatinine Clearance 37.69 ml/min; Globulin 3.2 g/dL (2.2-4.2); Glucose 91 mg/dL (74-106); Magnesium 2.3 mg/dL (1.6-2.6); Phosphorus 4.1 mg/dL (2.5-4.9); Potassium 3.6 mmol/L (3.5-5.1); Protein, Total 6.1 g/dL (6.4-8.2); Sodium Level 139 mmol/L (136-145)
--- NOTE | 2024-03-08 08:47 | PCM.PN.HOSP ---
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 (03/08/24) Overweight (03/08/24) Dilated cardiomyopathy (03/08/24) Peripheral vascular disease, unspecified (03/08/24) Gangrene, not elsewhere classified (03/08/24) Cellulitis of right toe (03/08/24) Primary osteoarthritis, unspecified site (03/08/24) Other acute osteomyelitis, right ankle and foot (03/08/24) Other malaise (03/08/24) Other specified postprocedural states (03/08/24) Objective Data Objective Data Vital Signs: Vital Signs Temp Pulse Resp BP Pulse Ox O2 Del Method 97.0 F L 69 18 129/67 H 96 Room Air 03/08/24 05:45 03/08/24 05:45 03/08/24 05:45 03/08/24 05:45 03/08/24 08:31 03/08/24 08:31 Oxygen Delivery Method Room Air Weight: 142 lb 3.2 oz Body Mass Index (BMI) 25.2 Intake & Output: Intake and Output for Last 24 Hours 03/06/24 03/07/24 03/08/24 23:59 23:59 23:59 Intake Total 831.67 / 831.67 Balance 831.67 / 831.67 Lab / Micro Data 03/08/24 05:15 03/08/24 05:15 Labs: Laboratory Results - last 24 hr 03/07/24 22:21: WBC 5.0, RBC 3.87 L, Hgb 12.3, Hct 37.6, MCV 97.2, MCH 31.8, MCHC 32.7, RDW Std Deviation 56.6 H, RDW Coeff of Kate 15.9 H, Plt Count 249, MPV 9.8, Immature Gran % (Auto) 0.200, Neut % (Auto) 52.8, Lymph % (Auto) 36.0, [place] % (Auto) 9.0, Eos % (Auto) 1.6, Baso % (Auto) 0.4, Absolute Neuts (auto) 2.6, Absolute Lymphs (auto) 1.80, Nucleated RBC % 0, ESR 17, PT 42.9 H, INR 4.6 H*, Sodium 138, Potassium 3.8, Chloride 106, Carbon Dioxide 25.0, Anion Gap 7, BUN 41 H, Creatinine 1.16 H, Estim Creat Clear Calc 32.94, Est GFR (MDRD) Af Amer 57 L, Est GFR (MDRD) Non-Af 47 L, BUN/Creatinine Ratio 35.3 H, Glucose 150 H, Calcium 9.3, C-React Prot Ext Range 11.30 H 03/08/24 05:15: WBC 4.6, RBC 3.45 L, Hgb 10.7 L, Hct 34.1 L, MCV 98.8, MCH 31.0, MCHC 31.4 L, RDW Std Deviation 56.7 H, RDW Coeff of Kate 15.6 H, Plt Count 228, MPV 10.1, Immature Gran % (Auto) 0.400, Neut % (Auto) 49.2, Lymph % (Auto) 37.9, [place] % (Auto) 9.4, Eos % (Auto) 2.4, Baso % (Auto) 0.7, Absolute Neuts (auto) 2.3, Absolute Lymphs (auto) 1.74, Nucleated RBC % 0, PT 43.5 H, INR 4.7 H*, APTT 64.8 H, Sodium 139, Potassium 3.6, Chloride 111 H, Carbon Dioxide 23.0, Anion Gap 5, BUN 33 H, Creatinine 1.02, Estim Creat Clear Calc 37.69, Est GFR (MDRD) Af Amer 66, Est GFR (MDRD) Non-Af 55 L, BUN/Creatinine Ratio 32.4 H, Glucose 91, Calcium 8.5, Phosphorus 4.1, Magnesium 2.3, Total Bilirubin 0.30, AST 33, ALT 37, Alkaline Phosphatase 52, Total Protein 6.1 L, Albumin 2.9 L, Globulin 3.2, Albumin/Globulin Ratio 0.9, TSH 5.590 H, Blood Type A POSITIVE, Antibody Screen NEGATIVE 03/08/24 05:40: POC Glucose 107 H Radiography Diagnostic Testing: Radiology Impression Foot X-Ray 03/07/24 22:20 IMPRESSION: Cortical lucency and demineralization along the lateral base of the first distal phalanx is evident compared to the prior examination suggesting osteomyelitis at this location. Electronically Signed: Vel Ramos DO at 22:57 EST , Physical Exam Narrative Seen and examined Wound photo reviewed and shows right great toe and third toe necrotic patch. All 5 toes and forefoot is dry, wrinkled and shriveled suggestive of dry gangrene. No fever talk to the patient's at the bedside Physical exam General: Alert, Oriented x3, Cooperative HEENT: Atraumatic, PERRLA, EOMI, Normocephalic Oral: No Gingival or Mucosal Lesions/ Ulcerations Neck: Supple, No JVD, Negative Carotid Bruits Chest wall/Lungs: Air entry diminished in bilateral lung bases. No crepitation/rhonchi Cardiovascular: Regular rate, Regular Rhythm, Normal S1, Normal S2, No M/G/R Abdomen: Bowel Sounds Present, Soft, Non Tender, Non-Distended : No dysuria. No renal angle tenderness. No suprapubic tenderness. Extremities: No edema, Capillary Refill Less than 3 Seconds Skin: Necrotic skin of first and third toe with spotty black patch on the right second toe. Mild tenderness present. Neuropathy. Musculoskeletal: No Tenderness to Palpation of Joints or Extremities Neurological: Cranial nerves II-XII grossly intact, DTR 2+/4. Chronic neuropathy Psych/Mental Status: Normal Affect, Appropriate. Assessment & Plan Assessment/Plan (1) Osteomyelitis of ankle or foot, right, acute: (2) Cellulitis: QUALIFIERS: Laterality: right Site of cellulitis: extremity Site of cellulitis of extremity: toe Qualified Code(s): L03.031 - Cellulitis of right toe (3) Diabetic wet gangrene of the foot: (4) Dry gangrene: (5) Peripheral vascular disease: (6) History of femoropopliteal bypass: (7) Factor V Leiden: (8) Debility: (9) Osteoarthritis: QUALIFIERS: Osteoarthritis location: unspecified site Osteoarthritis type: primary Qualified Code(s): M19.91 - Primary osteoarthritis, unspecified site (10) Overweight (BMI 25.0-29.9): (11) Dilated cardiomyopathy: PLAN: Plan 1. Osteomyelitis and Cellulitis complicated by clinical evidence of Dry Gangrene with recent conversion to Wet Gangrene after recent vascular surgery on the RLE for PVD on January 19, [address] Rojas of vascular surgery causing ischemia in the toes of the Right foot - Admit to PCU and keep NPO for impending partial Right foot amputation. Continue empiric IV Vancomycin and IV Zosyn. Pain control. 03/08: Discussed with the podiatry Dr. Blanca. MRI is ordered. Foot x-ray shows cortical lucency and demineralization along lateral base of first distal phalanx of right foot therefore osteomyelitis. MRI is pending. Dr. Tang he might do local debridement. Vascular surgery is consulted for opinion regarding circulation and perfusion of the foot. 2. Rvgiyp-S-Clynxl deficiency; on Warfarin - Hold Warfarin with impending amputation. Check PT/INR. 03/08: INR 4.7. Hold warfarin. 3. DM-2; of unknown control on Glimepiride - Hold Glimepiride and keep NPO for now. Check FSBS q. 6 hours plus SSI. Check HgbA1c to objectively assess quality of diabetic control. 4. Overweight; with BMI of 25.7 this admission with Chronic Debility with OA adding to the medical complexity of #1 - #3 - Weight loss will be recommended. Check TSH. PT/OT and Case Management to consult and treat on-rounds in the AM for further recommendations with help appreciated in advance. These issues complicate her case and may hamper recovery. 5. Essential hypertension - Decrease Lasix to once daily and continue Aldactone and Losartan. Give Hydralazine IV prn for systolic blood pressure > 160 mmHg. 6. Hyperlipidemia - Resume statin at decreased recommended dose for her age and check Lipid Profile. 7. History of CHF; on Lasix, Metoprolol and Aldactone - Stable with no current signs of volume overload. Decrease Lasix but continue other agents as previous. 8. History of dilated cardiomyopathy with LVEF ~35% (01/2024) - Noted. 9. History of prolonged QT-interval - Stable. Minimize potentially QT-prolonging agents if possible. 10. History of carotid stenosis; s/p carotid endarterectomy - Noted. 11. Depression with anxiety; on sertraline - Maintain current regimen. 12. JOAO - Stable with hemoglobin of 12.3 g/dL present on admission. 13. Overactive bladder - Resume Oxybutynin as before. 14. History of stage II decubitus ulcer - Noted. 15. DVT prophylaxis - Check PT/INR with patient on Warfarin. Hold anticoagulants with impending amputations. SCD's ordered. Charges/Coding Visit Charges Inpatient E&M: 12560 Subs Hosp L2
--- NOTE | 2024-03-08 08:53 | MRI_ITS ---
HISTORY: osteomyelitis, gangrene. RIGHT foot swelling and discoloration. Drainage at the 1st and 3rd interspaces. Date: 03/08/2024 3:00 PM Technique: MRI examination obtained with multiplanar multi echo imaging. Location: RIGHT foot Contrast: No contrast administered Comparison: Plain film examination of 03/07/2024 FINDINGS: BONY ELEMENTS: 1. Normal alignment bony elements without evidence of fracture malalignment. No destructive bony process noted. 2. There is marked dorsiflexion of the metatarsophalangeal joints. Joint space is however maintained. JOINT SPACES: 1. Normal appearance of alignment of bony elements and joint spaces. No joint effusion DEEP MUSCULAR COMPARTMENTS: 1. Deep muscular compartments are well-maintained. NEURAL VASCULAR COMPARTMENTS: 1. Normal appearance of the neural vascular compartments SUBCUTANEOUS SOFT TISSUES. 1. There is extensive subcutaneous edema involving the dorsum of the foot. Additional significant subcutaneous edema between the 1st and 2nd digits, along the plantar surface of the forefoot, and to lesser extent associated with the 3rd and 4th digits. No organized fluid collection or abscess. MRI/Lower Ext/No Jt/w/o IMPRESSION: 1. Extensive subcutaneous edema along the dorsum of foot, additionally between the 1st and 2nd digits, along the plantar surface of the forefoot, and associated with the 3rd and 4th digits. 2. No organized fluid collection or abscess. 3. No evidence of marrow replacement processes or osteomyelitis. 4. Incidental note of marked dorsiflexion of the metatarsophalangeal joints. Electronically Signed: Jordi Maravilla MD at 21:23 EST ,
--- NOTE | 2024-03-08 08:55 | PCM.CONS.GEN ---
Assessment & Plan Assessment/Plan (1) Black toe: (2) Acute osteomyelitis of right foot: PLAN: Plan Evaluation performed. Reviewed diagnostic data. Left foot xray with possible osteomyelitis 1st toe proximal phalanx - ordered MRI right foot for further evaluation. Continue with IV antibiotics - there is no drainage to culture at this time. Consult placed to vascular surgery. Planning further evaluation intervention on Tuesday. There has overall been very minimal to no improvement to toes with the gangrenous changes, we discussed possible TMA procedure, reviewed possible benefits vs risks, goals, expectations as well, patient would like to proceed with TMA, at this time infection appears well controlled and is noted to be improved from infection stand point so will wait until vascular status is optimized as much as possible then plan to proceed with TMA which would likely be next week. Thank you for consult, will continue to follow patient closely. HPI Consult Data Date of Consult: 03/08/24 HPI Narrative Reason for Consultation: Right foot gangrene HPI Narrative: JAROD PRITCHARD, is a 83 F who presents for right foot. She has PAD, ad SFA POP bypass, she has gangrenous changes to right forefoot. There was noted to be increased swelling, pain and purulence to dorsal right foot yesterday, she presented to ER and has been admitted. She has been started on IV antibiotics Vanc/Zosyn, also right foot xrays obtained and there is concern for osteomyelitis to right 1st toe proximal phalanx. She is resting in bed. WBC normal, and no complaints of f/c/n/v. [facility] Medical History Prolonged QT interval Elevated blood pressure reading without diagnosis of hypertension Dilated cardiomyopathy Factor V Leiden Anxiety Hypokalemia Acute hypoxemic respiratory failure CHF (congestive heart failure) Home Medications ?Medication ?Instructions ?Recorded ?Last Taken ?Type oxybutynin chloride 10 mg 10 mg PO DAILY bladder 09/23/23 01/27/24 History tablet,extended release 24 hr simvastatin 80 mg tablet 80 mg PO QHS cholesterol 09/23/23 01/26/24 History fluticasone propionate 50 2 spray intranasal DAILY PRN nasal 12/31/23 12/31/23 History mcg/actuation nasal congestion spray,suspension glimepiride 2 mg tablet 2 mg PO DAILY dm 12/31/23 Unknown History furosemide 40 mg tablet 40 mg PO BIDLX water pill 30 days 01/03/24 01/27/24 Rx #60 tabs losartan 50 mg tablet 50 mg PO DINNER blood pressure 30 01/03/24 01/21/24 Rx days #30 tabs metoprolol succinate 50 mg 50 mg PO DAILY heart rate 1 month 01/03/24 01/21/24 Rx tablet,extended release 24 hr #30 tabs spironolactone 25 mg tablet 12.5 mg (1/2 x 25 mg) PO DAILY 01/03/24 01/21/24 Rx water pill #30 tabs acetaminophen 500 mg tablet 1,000 mg (2 x 500 mg) PO Q8 pain 01/27/24 01/27/24 Rx #0 tabs ferrous sulfate 325 mg (65 mg 325 mg PO DAILY@1200 30 days #30 02/03/24 Unknown Rx iron) tablet (FeroSul) tabs magnesium chloride 64 mg 128 mg (2 x 64 mg) PO DAILY 30 02/03/24 Unknown Rx (magnesium chloride) days #60 tabs tablet,delayed release (Mag 64) oxycodone 5 mg tablet 10 mg (2 x 5 mg) PO Q4H PRN PRN 02/03/24 Unknown Rx Pain Score 4-10 7 days #84 tabs sennosides 8.6 mg-docusate sodium 2 tab PO DAILY 30 days #60 tabs 02/03/24 Unknown Rx 50 mg tablet (Stimulant Laxative Plus) tramadol 50 mg tablet 50 mg PO Q8H PRN PRN PAIN 1-3 7 02/03/24 Unknown Rx days #21 tabs cranberry fruit concentrate 1 tab PO DAILY 03/07/24 Unknown History sertraline 25 mg tablet 25 mg PO DAILY 03/07/24 Unknown History warfarin 2 mg tablet 4 mg PO DAILY 03/07/24 Unknown History Allergy/AdvReac Type Severity Reaction Status Date / Time benazepril (From Lotensin) Allergy Mild DOESNT Verified 03/07/24 20:46 REMEMBER quinapril (From Accupril) Allergy Mild UNKNOWN Verified 03/07/24 20:46 Sulfa (Sulfonamide Allergy Mild Hives Verified 03/07/24 20:46 Antibiotics) verapamil (From [place]) Allergy Mild UNKNOWN Verified 03/07/24 20:46 Surgical History History of femoropopliteal bypass S/P carotid endarterectomy Social History Smoking Status: Never smoker Physical Exam Const alert, oriented x3 and no apparent distress Constitutional Narrative: Left foot with gangrene eschar changes to dorsal 1st and 3rd toes, and small little eschars to rest of toes dorsally, there is no purulence, and no cellulitis at this time, no maloder, no fluctuance, no crepitus, no visible abscess, and edema is improved, with foot otherwise appearing stable. Lab / Micro Data 03/08/24 05:15 03/08/24 05:15 Labs: Laboratory Results - last 24 hr 03/07/24 22:21: WBC 5.0, RBC 3.87 L, Hgb 12.3, Hct 37.6, MCV 97.2, MCH 31.8, MCHC 32.7, RDW Std Deviation 56.6 H, RDW Coeff of Kate 15.9 H, Plt Count 249, MPV 9.8, Immature Gran % (Auto) 0.200, Neut % (Auto) 52.8, Lymph % (Auto) 36.0, [place] % (Auto) 9.0, Eos % (Auto) 1.6, Baso % (Auto) 0.4, Absolute Neuts (auto) 2.6, Absolute Lymphs (auto) 1.80, Nucleated RBC % 0, ESR 17, PT 42.9 H, INR 4.6 H*, Sodium 138, Potassium 3.8, Chloride 106, Carbon Dioxide 25.0, Anion Gap 7, BUN 41 H, Creatinine 1.16 H, Estim Creat Clear Calc 32.94, Est GFR (MDRD) Af Amer 57 L, Est GFR (MDRD) Non-Af 47 L, BUN/Creatinine Ratio 35.3 H, Glucose 150 H, Calcium 9.3, C-React Prot Ext Range 11.30 H 03/08/24 05:15: WBC 4.6, RBC 3.45 L, Hgb 10.7 L, Hct 34.1 L, MCV 98.8, MCH 31.0, MCHC 31.4 L, RDW Std Deviation 56.7 H, RDW Coeff of Kate 15.6 H, Plt Count 228, MPV 10.1, Immature Gran % (Auto) 0.400, Neut % (Auto) 49.2, Lymph % (Auto) 37.9, [place] % (Auto) 9.4, Eos % (Auto) 2.4, Baso % (Auto) 0.7, Absolute Neuts (auto) 2.3, Absolute Lymphs (auto) 1.74, Nucleated RBC % 0, PT 43.5 H, INR 4.7 H*, APTT 64.8 H, Sodium 139, Potassium 3.6, Chloride 111 H, Carbon Dioxide 23.0, Anion Gap 5, BUN 33 H, Creatinine 1.02, Estim Creat Clear Calc 37.69, Est GFR (MDRD) Af Amer 66, Est GFR (MDRD) Non-Af 55 L, BUN/Creatinine Ratio 32.4 H, Glucose 91, Calcium 8.5, Phosphorus 4.1, Magnesium 2.3, Total Bilirubin 0.30, AST 33, ALT 37, Alkaline Phosphatase 52, Total Protein 6.1 L, Albumin 2.9 L, Globulin 3.2, Albumin/Globulin Ratio 0.9, TSH 5.590 H, Blood Type A POSITIVE, Antibody Screen NEGATIVE 03/08/24 05:40: POC Glucose 107 H Imaging Radiology Impression Foot X-Ray 03/07/24 22:20 IMPRESSION: Cortical lucency and demineralization along the lateral base of the first distal phalanx is evident compared to the prior examination suggesting osteomyelitis at this location. Electronically Signed: Vel Ramos, at 22:57 EST ,
[2024-03-08 09:25] LABS: CPK Total, Creatine Kinase 47 U/L (26-192)
[2024-03-08] MEDS: Sertraline 50 MG Tablet 25 MG PO (09:34)
[2024-03-08] MEDS: Lactobacillis Acidophilus 1 CAP PO ×4 (09:34→20:14)
[2024-03-08] MEDS: Metoprolol(XL)Succ 50 MG Tablet PO (09:34)
[2024-03-08] MEDS: Spironolactone 25 MG Tablet 12.5 MG PO (09:34)
[2024-03-08] MEDS: Magnesium Chloride 64 MG Delay Rel.Tablet 128 MG PO (09:34)
[2024-03-08] MEDS: Tolterodine Tartrate 2 MG CAP.SA PO (09:34)
[2024-03-08] MEDS: Furosemide 40 MG Tablet PO (09:35)
--- NOTE | 2024-03-08 10:18 | WOUNDNOTE ---
wound photo: right foot
--- NOTE | 2024-03-08 10:18 | WOUNDNOTE ---
wound photo: right foot
[2024-03-08] MEDS: Ferrous Sulfate 325 MG Tablet PO (10:59)
[2024-03-08 11:00] LABS: Hemoglobin A1c 5.7 % (3.8-5.6)
--- NOTE | 2024-03-08 11:39 | EX.PCM.CON.S ---
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 Vascular exam appears stable today, not suggestive of interval bypass failure or acute ischemic event to necessitate repeat CTA but will get duplex to confirm stable bypass. She does have significant calcified atherosclerosis of her tibial vessels which continues to reduce inflow to the foot despite patent bypass. Given need for podiatry intervention and her diabetic status, reasonable at this point to pursue angiogram with possible tibial intervention to see if inflow can be improved further to allow best chance at healing. Dr. Rojas is out of town this week so the soonest we can add for angiogram is Tuesday. She is quite anxious with interventions and with her prior angiogram was very uncomfortable so we will be planning for general anesthesia with this angiogram as well. I discussed the procedure details including benefits, risks, and recovery with the patient and her . They are agreeable to proceed. Her INR was supratherapeutic on presentation, still 4.7 today. She does have a history of factor V Leiden and do want to protect her bypass; therefore, once her INR is less than 3 would like to initiate therapeutic heparin drip and avoid further active INR reversal. Will continue her on Plavix 75 mg daily and prefer to continue this if at all possible without interruption. HPI Consult Data Date of Consult: 03/08/24 HPI Narrative HPI Narrative: JAROD PRITCHARD, is a 83 F who presented to the [facility] ER on 03/07/2024 with concern for infection of her right foot gangrene/wounds. She had x-ray in the ER which suggested changes consistent with osteomyelitis in her right first toe. MRI is ordered to further evaluate. Dr. Blanca is consulted and planning most likely for TMA. She is known to our service from prior hospitalization in January 2024 where she presented with acute right foot pain, discoloration, and bullae. CTA at that time revealed right popliteal occlusion suspicious for in situ thrombosis that was felt to be secondary to a likely period of subtherapeutic INR and relative dehydration from a recent prior hospitalization for new onset CHF. Endovascular intervention for this right popliteal occlusion was attempted on 01/19/2024 and unfortunately unsuccessful. Therefore, she subsequently underwent a right SFA to popliteal PTFE bypass which was successful. At this time, the bulla on her right foot had started evolving into dry gangrene and podiatry was consulted with plan to allow the tissue to demarcate and continue to monitor. She was discharged to TCU for ongoing rehab. She was more recently seen in our office with recent arterial study showing improved right AYAN to 0.71 but some diminished velocities in the bypass. Diminished velocities are felt to be most likely due to her known distal tibial disease; however we did obtain an outpatient CTA to confirm. CTA did show patent bypass and also showed significant calcified atherosclerosis of her tibial vessels. We had her on Lovenox as an outpatient; however, at some point she has been transitioned back to Coumadin but not by our office so unclear timeline and unclear if bridging occurred. On her presentation today her INR was supratherapeutic to 4.7. Coumadin is currently held in anticipation of podiatry intervention. She has been chronically anticoagulated with Coumadin for many years due to her history of factor V. She reports that overall the pain in her foot is stable, no sudden worsening. She does mostly have pain in her toes around the areas of the wounds. [facility] Medical History Prolonged QT interval Elevated blood pressure reading without diagnosis of hypertension Dilated cardiomyopathy Factor V Leiden Anxiety Hypokalemia Acute hypoxemic respiratory failure CHF (congestive heart failure) Home Medications ?Medication ?Instructions ?Recorded ?Last Taken ?Type oxybutynin chloride 10 mg 10 mg PO DAILY bladder 09/23/23 01/27/24 History tablet,extended release 24 hr simvastatin 80 mg tablet 80 mg PO QHS cholesterol 09/23/23 01/26/24 History fluticasone propionate 50 2 spray intranasal DAILY PRN nasal 12/31/23 12/31/23 History mcg/actuation nasal congestion spray,suspension glimepiride 2 mg tablet 2 mg PO DAILY dm 12/31/23 Unknown History furosemide 40 mg tablet 40 mg PO BIDLX water pill 30 days 01/03/24 01/27/24 Rx #60 tabs losartan 50 mg tablet 50 mg PO DINNER blood pressure 30 01/03/24 01/21/24 Rx days #30 tabs metoprolol succinate 50 mg 50 mg PO DAILY heart rate 1 month 01/03/24 01/21/24 Rx tablet,extended release 24 hr #30 tabs spironolactone 25 mg tablet 12.5 mg (1/2 x 25 mg) PO DAILY 01/03/24 01/21/24 Rx water pill #30 tabs acetaminophen 500 mg tablet 1,000 mg (2 x 500 mg) PO Q8 pain 01/27/24 01/27/24 Rx #0 tabs ferrous sulfate 325 mg (65 mg 325 mg PO DAILY@1200 30 days #30 02/03/24 Unknown Rx iron) tablet (FeroSul) tabs magnesium chloride 64 mg 128 mg (2 x 64 mg) PO DAILY 30 02/03/24 Unknown Rx (magnesium chloride) days #60 tabs tablet,delayed release (Mag 64) oxycodone 5 mg tablet 10 mg (2 x 5 mg) PO Q4H PRN PRN 02/03/24 Unknown Rx Pain Score 4-10 7 days #84 tabs sennosides 8.6 mg-docusate sodium 2 tab PO DAILY 30 days #60 tabs 02/03/24 Unknown Rx 50 mg tablet (Stimulant Laxative Plus) tramadol 50 mg tablet 50 mg PO Q8H PRN PRN PAIN 1-3 7 02/03/24 Unknown Rx days #21 tabs cranberry fruit concentrate 1 tab PO DAILY 03/07/24 Unknown History sertraline 25 mg tablet 25 mg PO DAILY 03/07/24 Unknown History warfarin 2 mg tablet 4 mg PO DAILY 03/07/24 Unknown History Allergy/AdvReac Type Severity Reaction Status Date / Time benazepril (From Lotensin) Allergy Mild DOESNT Verified 03/07/24 20:46 REMEMBER quinapril (From Accupril) Allergy Mild UNKNOWN Verified 03/07/24 20:46 Sulfa (Sulfonamide Allergy Mild Hives Verified 03/07/24 20:46 Antibiotics) verapamil (From Calan) Allergy Mild UNKNOWN Verified 03/07/24 20:46 Surgical History History of femoropopliteal bypass S/P carotid endarterectomy Social History Smoking Status: Never smoker Physical Exam Const alert, oriented x3 and no apparent distress General Appearance: cooperative HEENT normocephalic, head/scalp atraumatic, hearing grossly normal bilaterally, external ears normal and external nose normal Eyes General Eye: normal appearance of both eyes Neck General: normal visual inspection and trachea midline Resp normal respiratory effort, normal air movement, no retractions and no use of accessory muscles Effort and Inspection: able to speak in complete sentences Cardio Rate: regular rate Extremity Extremity Narrative: Right lower extremity with wound dressings intact. Vascular exam appears stable with strong monophasic right PT and DP pulses. Skin no rashes or lesions noted Wounds: wounds noted Neuro oriented x3, CN's II-XII intact bilaterally, moves all extremities and no focal motor deficits Psych Appearance: grossly normal Attitude: engaged Activity / Motor Behavior: appropriate eye contact Speech: normal speech Mood & Affect: anxious Lab / Micro Data 03/08/24 05:15 03/08/24 05:15 Labs: Laboratory Results - last 24 hr 03/07/24 22:21: WBC 5.0, RBC 3.87 L, Hgb 12.3, Hct 37.6, MCV 97.2, MCH 31.8, MCHC 32.7, RDW Std Deviation 56.6 H, RDW Coeff of Kate 15.9 H, Plt Count 249, MPV 9.8, Immature Gran % (Auto) 0.200, Neut % (Auto) 52.8, Lymph % (Auto) 36.0, [place] % (Auto) 9.0, Eos % (Auto) 1.6, Baso % (Auto) 0.4, Absolute Neuts (auto) 2.6, Absolute Lymphs (auto) 1.80, Nucleated RBC % 0, ESR 17, PT 42.9 H, INR 4.6 H*, Sodium 138, Potassium 3.8, Chloride 106, Carbon Dioxide 25.0, Anion Gap 7, BUN 41 H, Creatinine 1.16 H, Estim Creat Clear Calc 32.94, Est GFR (MDRD) Af Amer 57 L, Est GFR (MDRD) Non-Af 47 L, BUN/Creatinine Ratio 35.3 H, Glucose 150 H, Calcium 9.3, C-React Prot Ext Range 11.30 H 03/08/24 05:15: WBC 4.6, RBC 3.45 L, Hgb 10.7 L, Hct 34.1 L, MCV 98.8, MCH 31.0, MCHC 31.4 L, RDW Std Deviation 56.7 H, RDW Coeff of Kate 15.6 H, Plt Count 228, MPV 10.1, Immature Gran % (Auto) 0.400, Neut % (Auto) 49.2, Lymph % (Auto) 37.9, [place] % (Auto) 9.4, Eos % (Auto) 2.4, Baso % (Auto) 0.7, Absolute Neuts (auto) 2.3, Absolute Lymphs (auto) 1.74, Nucleated RBC % 0, PT 43.5 H, INR 4.7 H*, APTT 64.8 H, Sodium 139, Potassium 3.6, Chloride 111 H, Carbon Dioxide 23.0, Anion Gap 5, BUN 33 H, Creatinine 1.02, Estim Creat Clear Calc 37.69, Est GFR (MDRD) Af Amer 66, Est GFR (MDRD) Non-Af 55 L, BUN/Creatinine Ratio 32.4 H, Glucose 91, Hemoglobin A1c 5.7 H, Calcium 8.5, Phosphorus 4.1, Magnesium 2.3, Total Bilirubin 0.30, AST 33, ALT 37, Alkaline Phosphatase 52, Total Creatine Kinase 47, Total Protein 6.1 L, Albumin 2.9 L, Globulin 3.2, Albumin/Globulin Ratio 0.9, TSH 5.590 H, Blood Type A POSITIVE, Antibody Screen NEGATIVE 03/08/24 05:40: POC Glucose 107 H Imaging Radiology Impression Foot X-Ray 03/07/24 22:20 IMPRESSION: Cortical lucency and demineralization along the lateral base of the first distal phalanx is evident compared to the prior examination suggesting osteomyelitis at this location. Electronically Signed: Vel Ramos, DO at 22:57 EST , Charges/Coding Visit Charges Inpatient E&M: 62197 Init Hosp L2
[2024-03-08] MEDS: Clopidogrel Bisulfate 75 MG Tablet PO (13:01)
[2024-03-08 13:21] LABS: Bedside Glucose 135 mg/dL (74-106)
--- NOTE | 2024-03-08 15:42 | CHAPLAIN ---
Type of Pastoral Visit ___ Initial Visit ___ Follow-up Visit ___ On-call Visit ___ General Patient Visit ___ Spiritual Assessment ___ Family Conference ___ Bereavement ___ Rapid Response ___ Code Blue ___ Other (describe below) Pastoral Care Referral From ___ Patient ___ Family ___ Nurse ___ Physician ___ Ice Cream Shop Associate ___ Fowl Blood Tester ___ Other (describe below) Sacrament/Intervention ___ Active listening ___ Anointing ___ Jain ___ Bereavement ___ Communion ___ Emmy exploration ___ ___ Life review ___ Prayer ___ Reconciliation ___ Sacrament of Sick ___ Supportive presence ___ Wedding ___ Other (describe below) Pastoral Comments first attempt and the patient was having PT and OT; second attempt and pt was not in the room; left a calling card
[2024-03-08] MEDS: Losartan Potassium 50 MG Tablet PO (16:13)
--- NOTE | 2024-03-08 16:18 | CASEMGMT ---
XOCHILT HAND NOTE: Le @ [facility] aware pt has been admitted to [facility]. She verifies she is active w/them for SN only. Joe ZAVALA RN, CM
--- NOTE | 2024-03-08 16:28 | ADUL_ITS ---
Reason For Study: S/P R SFA-Pop bypass Right Velocities Ext. Iliac Artery, dist = 86.7 cm./sec. Common Femoral Artery, mid = 116.1 cm./sec. SFA, origin, 71.1 cm/sec. SFA prox, 144.1 cm/sec. Fem-Pop Bypass Prox to Bypass, 113.3 cm/s Prox Anastamosis, 104.5 cm/s Prox Graft, 45.9 cm/s Mid Graft, 44 cm/s Dist Graft, 42.1 cm/s Dist Anastamosis, 45.6 cm/s Dist to Graft, 207 cm/s. Profunda Femoral Artery = 74.4 cm./sec. Post. Tibial Artery, prox = 31.1 cm./sec. Post. Tibial Artery, mid = 64.2 cm./sec. Post. Tibial Artery, dist = 128 cm./sec. Peroneal Artery, prox = 95.7 cm./sec. Peroneal Artery, mid = 111.1 cm./sec. Peroneal Artery,dist = 54 cm./sec. Ant. Tibial Artery, prox = 16.6 cm./sec. Ant. Tibial Artery, mid = 11 cm./sec. Ant. Tibial Artery, dist = 55.4 cm./sec. Procedure Exam performed portable in patient room. / Art Duplex Unilat Lower Ext Interpretation Summary Patent right femoral-popliteal bypass graft with diminished velocities and main tained waveforms throughout. Ordering Physician: Laura Crowell Referring Physician: Kendra Lucio M.D. Performed By: Lacey Samayoa RVT
[2024-03-08 16:54] LABS: Bedside Glucose 143 mg/dL (74-106)
[2024-03-08] MEDS: Atorvastatin Calcium 20 MG Tablet PO (20:14)
[2024-03-08] MEDS: Vancomycin IV 1,000 MG/200 ML BAG 200 MG IV (23:58)
[2024-03-09] VITALS (9 sets, daily range): BP systolic 129–170; BP diastolic 59–85; PULSE 53–89; RESP 14–18; TEMP 36.5–37.1; O2SAT 96–97; BMI 26.4
[2024-03-09] MEDS: oxyCODONE 5 MG Tablet 10 MG PO ×5 (01:21→22:19)
[2024-03-09] MEDS: Piperacil/Tazobactam 3.375 GM in 0.9% Normal Saline (50mL MB+) 50 ML IV ×3 (06:06→21:14)
[2024-03-09] MEDS: Acetaminophen 325 MG Tablet 650 MG PO ×3 (06:26→23:34)
[2024-03-09 06:46] LABS: Bedside Glucose 107 mg/dL (74-106)
--- NOTE | 2024-03-09 07:03 | PN_ITS ---
Subjective Subjective Patient was seen this morning for follow up on her right foot. She is resting comfortably in bed, no overnight events. No complaints of f/c/n/v. Objective Data Objective Data Vital Signs: Vital Signs Temp Pulse Resp BP Pulse Ox O2 Del Method 97.9 F 89 18 129/59 H 97 Room Air 03/09/24 03:57 03/09/24 03:57 03/09/24 03:57 03/09/24 03:57 03/09/24 03:57 03/09/24 03:57 Oxygen Delivery Method Room Air Weight: 64.501 kg Body Mass Index (BMI) 25.2 Intake & Output: Intake and Output for Last 24 Hours 03/07/24 03/08/24 03/09/24 23:59 23:59 23:59 Intake Total 2635.00 / 2635.00 250 / 250 Balance 2635.00 / 2635.00 250 / 250 Lab / Micro Data 03/09/24 07:30 03/08/24 05:15 Labs: Laboratory Results - last 24 hr 03/08/24 05:15: PT 43.5 H, INR 4.7 H*, APTT 64.8 H, Sodium 139, Potassium 3.6, C hloride 111 H, Carbon Dioxide 23.0, Anion Gap 5, BUN 33 H, Creatinine 1.02, Estim Creat Clear Calc 37.69, Est GFR (MDRD) Af Amer 66, Est GFR (MDRD) Non-Af 55 L, BUN/Creatinine Ratio 32.4 H, Glucose 91, Hemoglobin A1c 5.7 H, Calcium 8.5, Phosphorus 4.1, Magnesium 2.3, Total Bilirubin 0.30, AST 33, ALT 37, Alkaline Phosphatase 52, Total Creatine Kinase 47, Total Protein 6.1 L, Albumin 2.9 L, Globulin 3.2, Albumin/Globulin Ratio 0.9, TSH 5.590 H, Blood Type A POSITIVE, Antibody Screen NEGATIVE 03/08/24 05:40: POC Glucose 107 H 03/08/24 13:01: POC Glucose 135 H 03/08/24 16:16: POC Glucose 143 H 03/09/24 06:05: POC Glucose 107 H Radiography Diagnostic Testing: Radiology Impression Lower Extremity MRI 03/08/24 08:53 IMPRESSION: 1. Extensive subcutaneous edema along the dorsum of foot, additionally between the 1st and 2nd digits, along the plantar surface of the forefoot, and associated with the 3rd and 4th digits. 2. No organized fluid collection or abscess. 3. No evidence of marrow replacement processes or osteomyelitis. 4. Incidental note of marked dorsiflexion of the metatarsophalangeal joints. Electronically Signed: Jordi Maravilla MD at 21:23 EST , Physical Exam Const alert, oriented x3 and no apparent distress Constitutional Narrative: Left foot with gangrene eschar changes to dorsal 1st and 3rd toes, and small little eschars to rest of toes dorsally, there is no purulence, and no cellulitis at this time, no maloder, no fluctuance, no crepitus, no visible abscess, and edema is improved, with foot otherwise appearing stable. Assessment & Plan Assessment/Plan (1) Black toe: (2) Acute osteomyelitis of right foot: PLAN: Plan Evaluation performed. Reviewed diagnostic data. Left foot xray with possible osteomyelitis 1st toe proximal phalanx - ordered MRI right foot for further evaluation - reviewed, no evidence of osteomyelitis. She remains of IV antibiotics - there is no drainage to culture at this time. Consult placed to vascular surgery. Planning further evaluation intervention on Tuesday. There has overall been very minimal to no improvement to gangrenous changes on toes, we discussed TMA procedure, reviewed possible benefits vs risks, goals, expectations as well, patient would like to proceed with TMA, at this time infection appears well controlled and is noted to be improved, will wait until vascular status is optimized as much as possible then plan to proceed with TMA which would likely be next week. Will continue to follow closely.
[2024-03-09 07:55] LABS: Absolute Lymphocyte Count 1.71 X10^3/uL (0.83-4.51); Absolute Neutrophil Count 2.5 X10^3/uL (2.0-7.7); Basophil# 0.03 X10^3/uL; Basophil% 0.6 % (0-1); Eosinophil# 0.12 X10^3/uL; Eosinophils% 2.4 % (0-5); Hematocrit 35.6 % (37-47); Hemoglobin 11.7 g/dL (12.0-15.0); Lymphocyte # 1.71 X10^3/ul (0.83-4.51); Lymphocyte % 34.8 % (19-41); Mean Corp Hgb Conc 32.9 g/dL (32-36); Mean Corpuscular Hgb 31.7 pg (27.0-32.0); Mean Corpuscular Volume 96.5 fL (81-99); Mean Platelet Vol. 9.7 fl (6.2-12.0); Monocyte# 0.58 X10^3/uL; Monocyte% 11.8 % (0-10); NRBC Flagged by Analyzer 0 % (0-5); Neutrophil # 2.47 X10^3/uL (2.7-7.7); Neutrophil % 50.2 % (47-70); Platelet Count 230 K/mm3 (150-450); RBC Distribution Width CV 15.9 % (11.6-14.6); RBC Distribution Width SD 56.4 fl (35.1-43.9); Red Blood Count 3.69 M/mm3 (4.2-5.4); White Blood Count 4.9 K/mm3 (4.4-11.0)
--- NOTE | 2024-03-09 07:56 | PCM.PN.HOSP ---
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 (03/08/24) Overweight (03/08/24) Dilated cardiomyopathy (03/08/24) Peripheral vascular disease, unspecified (03/08/24) Gangrene, not elsewhere classified (03/08/24) Cellulitis of right toe (03/08/24) Primary osteoarthritis, unspecified site (03/08/24) Other acute osteomyelitis, right ankle and foot (03/08/24) Other malaise (03/08/24) Other specified postprocedural states (03/08/24) Objective Data Objective Data Vital Signs: Vital Signs Temp Pulse Resp BP Pulse Ox O2 Del Method 97.9 F 89 18 129/59 H 97 Room Air 03/09/24 03:57 03/09/24 03:57 03/09/24 03:57 03/09/24 03:57 03/09/24 03:57 03/09/24 03:57 Oxygen Delivery Method Room Air Weight: 142 lb 3.2 oz Body Mass Index (BMI) 25.2 Intake & Output: Intake and Output for Last 24 Hours 03/07/24 03/08/24 03/09/24 23:59 23:59 23:59 Intake Total 2635.00 / 2635.00 250 / 250 Balance 2635.00 / 2635.00 250 / 250 Lab / Micro Data 03/09/24 07:30 03/09/24 07:30 Labs: Laboratory Results - last 24 hr 03/08/24 05:15: Hemoglobin A1c 5.7 H, Total Creatine Kinase 47 03/08/24 13:01: POC Glucose 135 H 03/08/24 16:16: POC Glucose 143 H 03/09/24 06:05: POC Glucose 107 H 03/09/24 07:30: WBC 4.9, RBC 3.69 L, Hgb 11.7 L, Hct 35.6 L, MCV 96.5, MCH 31.7, MCHC 32.9, RDW Std Deviation 56.4 H, RDW Coeff of Kate 15.9 H, Plt Count 230, MPV 9.7, Immature Gran % (Auto) 0.200, Neut % (Auto) 50.2, Lymph % (Auto) 34.8, [place] % (Auto) 11.8 H, Eos % (Auto) 2.4, Baso % (Auto) 0.6, Absolute Neuts (auto) 2.5, Absolute Lymphs (auto) 1.71, Nucleated RBC % 0 Radiography Diagnostic Testing: Radiology Impression Lower Extremity MRI 03/08/24 08:53 IMPRESSION: 1. Extensive subcutaneous edema along the dorsum of foot, additionally between the 1st and 2nd digits, along the plantar surface of the forefoot, and associated with the 3rd and 4th digits. 2. No organized fluid collection or abscess. 3. No evidence of marrow replacement processes or osteomyelitis. 4. Incidental note of marked dorsiflexion of the metatarsophalangeal joints. Electronically Signed: Jordi Maravilla MD at 21:23 EST , Physical Exam Narrative Seen and examined Wound photo reviewed and shows right great toe and third toe necrotic patch. There is extension of the spotty necrotic patch over second and fourth toe. Patient was evaluated by vascular surgeon and after school coordinator. Discussed with the after school coordinator. All 5 toes and forefoot is dry, wrinkled and shriveled suggestive of dry gangrene/severe small vessel atherosclerotic disease. No fever. Physical exam General: Alert, Oriented x3, Cooperative HEENT: Atraumatic, PERRLA, EOMI, Normocephalic Oral: No Gingival or Mucosal Lesions/ Ulcerations Neck: Supple, No JVD, Negative Carotid Bruits Chest wall/Lungs: Air entry diminished in bilateral lung bases. No crepitation/rhonchi Cardiovascular: Regular rate, Regular Rhythm, Normal S1, Normal S2, systolic murmur right second ICS and LLSB Abdomen: Bowel Sounds Present, Soft, Non Tender, Non-Distended : No dysuria. No renal angle tenderness. No suprapubic tenderness. Extremities: No edema, Capillary Refill Less than 3 Seconds Skin: Necrotic skin of first and third toe with spotty black patch on the right second and fourth toe. Mild tenderness present. Neuropathy. Musculoskeletal: No Tenderness to Palpation of Joints or Extremities Neurological: Cranial nerves II-XII grossly intact, DTR 2+/4. Chronic neuropathy Psych/Mental Status: Flat affect and sad after hearing TMA Assessment & Plan Assessment/Plan (1) Osteomyelitis of ankle or foot, right, acute: (2) Cellulitis: QUALIFIERS: Laterality: right Site of cellulitis: extremity Site of cellulitis of extremity: toe Qualified Code(s): L03.031 - Cellulitis of right toe (3) Diabetic wet gangrene of the foot: (4) Dry gangrene: (5) Peripheral vascular disease: (6) History of femoropopliteal bypass: (7) Factor V Leiden: (8) Debility: (9) Osteoarthritis: QUALIFIERS: Osteoarthritis location: unspecified site Osteoarthritis type: primary Qualified Code(s): M19.91 - Primary osteoarthritis, unspecified site (10) Overweight (BMI 25.0-29.9): (11) Dilated cardiomyopathy: PLAN: Plan 1. Osteomyelitis and Cellulitis complicated by clinical evidence of Dry Gangrene with recent conversion to Wet Gangrene after recent vascular surgery on the RLE for PVD on January 19, [address] Rojas of vascular surgery causing ischemia in the toes of the Right foot - Admit to PCU Continue empiric IV Vancomycin and IV Zosyn. Pain control. 03/08: Discussed with the podiatry Dr. Blanca. MRI is ordered. Foot x-ray shows cortical lucency and demineralization along lateral base of first distal phalanx of right foot therefore osteomyelitis. MRI is pending. Dr. Tang he might do local debridement. Vascular surgery is consulted for opinion regarding circulation and perfusion of the foot. 03/09: MRI foot reviewed. No organized fluid collection or abscess but extensive subcutaneous edema along dorsum and plantar surface of forefoot. No evidence of marrow replacement process or osteomyelitis. Vascular surgery reviewed. LEAS ordered. Plan for angiogram on Tuesday and thereafter TMA. Discussed with the after school coordinator. Dry gangrene turning to wet gangrene. Seen by ID. Continue vancomycin and Zosyn. 2. Syyozo-C-Gclkgb deficiency; on Warfarin - Hold Warfarin with impending amputation. Check PT/INR. 03/08: INR 4.7. Hold warfarin. 03/09: INR 2.2. On Plavix. Patient is started on a heparin drip. 3. DM-2; of unknown control on Glimepiride - Hold Glimepiride and keep NPO for now. Check FSBS q. 6 hours plus SSI. Check HgbA1c to objectively assess quality of diabetic control. 01/07: Glucoses reasonably controlled 135 207. Continue same regimen. 4. Overweight; with BMI of 25.7 this admission with Chronic Debility with OA adding to the medical complexity of #1 - #3 - Weight loss will be recommended. Check TSH. PT/OT and Case Management to consult and treat on-rounds in the AM for further recommendations with help appreciated in advance. These issues complicate her case and may hamper recovery. 5. Essential hypertension - Decrease Lasix to once daily and continue Aldactone and Losartan. Give Hydralazine IV prn for systolic blood pressure > 160 mmHg. 6. Hyperlipidemia - Resume statin at decreased recommended dose for her age and check Lipid Profile. 7. History of CHF; on Lasix, Metoprolol and Aldactone - Stable with no current signs of volume overload. Decrease Lasix but continue other agents as previous. 8. History of dilated cardiomyopathy with LVEF ~35% (01/2024) - Noted. 9. History of prolonged QT-interval - Stable. Minimize potentially QT-prolonging agents if possible. 10. History of carotid stenosis; s/p carotid endarterectomy - Noted. 11. Depression with anxiety; on sertraline - Maintain current regimen. 12. JOAO - Stable with hemoglobin of 12.3 g/dL present on admission. 13. Overactive bladder - Resume Oxybutynin as before. 14. History of stage II decubitus ulcer - Noted. 15. DVT prophylaxis - Check PT/INR with patient on Warfarin. Hold anticoagulants with impending amputations. SCD's ordered. Clinical Impression(s) from Imaging Studies Foot X-Ray 03/07/24 22:20 IMPRESSION: Cortical lucency and demineralization along the lateral base of the first distal phalanx is evident compared to the prior examination suggesting osteomyelitis at this location. Lower Extremity MRI 03/08/24 08:53 IMPRESSION: 1. Extensive subcutaneous edema along the dorsum of foot, additionally between the 1st and 2nd digits, along the plantar surface of the forefoot, and associated with the 3rd and 4th digits. 2. No organized fluid collection or abscess. 3. No evidence of marrow replacement processes or osteomyelitis. 4. Incidental note of marked dorsiflexion of the metatarsophalangeal joints. Electronically Signed: Jordi Maravilla MD at 21:23 EST , Charges/Coding Visit Charges Inpatient E&M: 55266 Subs Hosp L2
[2024-03-09 08:33] LABS: International Normalized Ratio 2.2; Prothrombin Time (Protime)PT. 24.6 SECONDS (11.7-14.9)
[2024-03-09] MEDS: Spironolactone 25 MG Tablet 12.5 MG PO (08:45)
[2024-03-09] MEDS: Lactobacillis Acidophilus 1 CAP PO ×4 (08:45→21:14)
[2024-03-09] MEDS: Clopidogrel Bisulfate 75 MG Tablet PO (08:46)
[2024-03-09] MEDS: Magnesium Chloride 64 MG Delay Rel.Tablet 128 MG PO (08:46)
[2024-03-09] MEDS: Metoprolol(XL)Succ 50 MG Tablet PO (08:46)
[2024-03-09] MEDS: Tolterodine Tartrate 2 MG CAP.SA PO (08:46)
[2024-03-09] MEDS: Furosemide 40 MG Tablet PO (08:46)
[2024-03-09] MEDS: Sertraline 50 MG Tablet 25 MG PO (08:47)
[2024-03-09 09:08] LABS: Anion Gap 9 (5-15); BUN 17 mg/dL (7-18); BUN/Creat Ratio 17.7 RATIO (10-20); Calcium,Total 9.2 mg/dL (8.5-10.1); Chloride 112 mmol/L (98-107); Creatinine, Serum 0.96 mg/dL (0.55-1.02); EST Glomerular Filtration Rate 59 mL/min (>60); Est Glom Filt Rate - Afr Amer 71 mL/min (>60); Estimated Creatinine Clearance 40.27 ml/min; Glucose 118 mg/dL (74-106); Potassium 3.7 mmol/L (3.5-5.1); Sodium Level 140 mmol/L (136-145)
--- NOTE | 2024-03-09 09:31 | CASEMGMT ---
Assessment- SW completed assessment with patient at bedside. SW confirmed addresses and names for contacts. Living situation- Patient lives with her in a 1 story home with 3 entry steps. PCP: Dr Lucio Specialists: Dr Rojas-Vascular and Dr Blanca-Podiatry Pharmacy: [facility] DME:? wheelchair, walker, and shower chair ADL's/IADL's: Patient is normally independent although she does sometimes use a walker. Patient drives, but hasn't driven in quite awhile as her usually drives. Patient manages her own medications. Patient showers herself. Past SNF/rehab: Patient has been to [facility] in the past. Past HH: Patient currently has [facility] LW: Yes and it is on file at [facility] POA:? Yes and it is on file at [facility]. Patient's is her HCPOA Plan: Patient plans on returning home with resumption of [facility] HH. However, [facility] CM will continue to follow as patient may have surgery while at [facility] and may end up needing more assistance. Christina Ramirez [employer]ER FATEMEH
[2024-03-09] MEDS: Ferrous Sulfate 325 MG Tablet PO (11:53)
[2024-03-09 13:09] LABS: Bedside Glucose 140 mg/dL (74-106)
--- NOTE | 2024-03-09 14:05 | CON.PCM.ID_ITS ---
Assessment & Plan Assessment/Plan (1) Diabetic wet gangrene of the foot: PLAN: Cxs pending. OR planned for next week. Cont vanc.zosyn. Will follow, thank you HPI Consult Data Date of Consult: 03/09/24 HPI Narrative Reason for Consultation: foot infection HPI Narrative: JAROD PRITCHARD, is a 83 F with CHF, DM, carotid stenosis, PVD, presented with several months progressive pain and gangrene of R foot. Reports toes turned black. Pain was moderate. No drainage, no fever or chills. Came to ED, seen by podiatry and vascular. On vanc/zosyn. Full ROS performed and neg except as noted above. [facility] Medical History Prolonged QT interval Elevated blood pressure reading without diagnosis of hypertension Dilated cardiomyopathy Factor V Leiden Anxiety Hypokalemia Acute hypoxemic respiratory failure CHF (congestive heart failure) Home Medications ?Medication ?Instructions ?Recorded ?Last Taken ?Type oxybutynin chloride 10 mg 10 mg PO DAILY bladder 09/23/23 01/27/24 History tablet,extended release 24 hr simvastatin 80 mg tablet 80 mg PO QHS cholesterol 09/23/23 01/26/24 History fluticasone propionate 50 2 spray intranasal DAILY PRN nasal 12/31/23 12/31/23 History mcg/actuation nasal congestion spray,suspension glimepiride 2 mg tablet 2 mg PO DAILY dm 12/31/23 Unknown History furosemide 40 mg tablet 40 mg PO BIDLX water pill 30 days 01/03/24 01/27/24 Rx #60 tabs losartan 50 mg tablet 50 mg PO DINNER blood pressure 30 01/03/24 01/21/24 Rx days #30 tabs metoprolol succinate 50 mg 50 mg PO DAILY heart rate 1 month 01/03/24 01/21/24 Rx tablet,extended release 24 hr #30 tabs spironolactone 25 mg tablet 12.5 mg (1/2 x 25 mg) PO DAILY 01/03/24 01/21/24 Rx water pill #30 tabs acetaminophen 500 mg tablet 1,000 mg (2 x 500 mg) PO Q8 pain 01/27/24 01/27/24 Rx #0 tabs ferrous sulfate 325 mg (65 mg 325 mg PO DAILY@1200 30 days #30 02/03/24 Unknown Rx iron) tablet (FeroSul) tabs magnesium chloride 64 mg 128 mg (2 x 64 mg) PO DAILY 30 02/03/24 Unknown Rx (magnesium chloride) days #60 tabs tablet,delayed release (Mag 64) oxycodone 5 mg tablet 10 mg (2 x 5 mg) PO Q4H PRN PRN 02/03/24 Unknown Rx Pain Score 4-10 7 days #84 tabs sennosides 8.6 mg-docusate sodium 2 tab PO DAILY 30 days #60 tabs 02/03/24 Unknown Rx 50 mg tablet (Stimulant Laxative Plus) tramadol 50 mg tablet 50 mg PO Q8H PRN PRN PAIN 1-3 7 02/03/24 Unknown Rx days #21 tabs cranberry fruit concentrate 1 tab PO DAILY 03/07/24 Unknown History sertraline 25 mg tablet 25 mg PO DAILY 03/07/24 Unknown History warfarin 2 mg tablet 4 mg PO DAILY 03/07/24 Unknown History tizanidine 4 mg tablet 4 mg PO QHS PRN PRN muscle spasm 03/09/24 Unknown History Allergy/AdvReac Type Severity Reaction Status Date / Time benazepril (From Lotensin) Allergy Mild DOESNT Verified 03/07/24 20:46 REMEMBER quinapril (From Accupril) Allergy Mild UNKNOWN Verified 03/07/24 20:46 Sulfa (Sulfonamide Allergy Mild Hives Verified 03/07/24 20:46 Antibiotics) verapamil (From Calan) Allergy Mild UNKNOWN Verified 03/07/24 20:46 Surgical History History of femoropopliteal bypass S/P carotid endarterectomy Social History Smoking Status: Never smoker Physical Exam Const alert, oriented x3 and no apparent distress General Appearance: cooperative HEENT normocephalic and head/scalp atraumatic Eyes PERRL and EOMs intact bilaterally Neck supple and No nodes Resp normal air movement and clear to auscultation bilaterally Cardio regular rate and regular rhythm GI soft to palpation, non-tender and non-distended Extremity General Extremity: Negative for edema Skin Skin Narrative: reviewed R foot photos Neuro CN's II-XII intact bilaterally Lab / Micro Data Attestation: I reviewed the patient's lab results. 03/09/24 07:30 03/09/24 07:30 Labs: Laboratory Results - last 24 hr 03/08/24 16:16: POC Glucose 143 H 03/09/24 06:05: POC Glucose 107 H 03/09/24 07:30: WBC 4.9, RBC 3.69 L, Hgb 11.7 L, Hct 35.6 L, MCV 96.5, MCH 31.7, MCHC 32.9, RDW Std Deviation 56.4 H, RDW Coeff of Kate 15.9 H, Plt Count 230, MPV 9.7, Immature Gran % (Auto) 0.200, Neut % (Auto) 50.2, Lymph % (Auto) 34.8, [place] % (Auto) 11.8 H, Eos % (Auto) 2.4, Baso % (Auto) 0.6, Absolute Neuts (auto) 2.5, Absolute Lymphs (auto) 1.71, Nucleated RBC % 0, PT 24.6 H, INR 2.2, Sodium 140, Potassium 3.7, Chloride 112 H, Carbon Dioxide 20.0 L, Anion Gap 9, BUN 17, Creatinine 0.96, Estim Creat Clear Calc 40.27, Est GFR (MDRD) Af Amer 71, Est GFR (MDRD) Non-Af 59 L, BUN/Creatinine Ratio 17.7, Glucose 118 H, Calcium 9.2 03/09/24 11:47: APTT 36.0 03/09/24 11:52: POC Glucose 140 H Imaging Radiology Impression Lower Extremity MRI 03/08/24 08:53 IMPRESSION: 1. Extensive subcutaneous edema along the dorsum of foot, additionally between the 1st and 2nd digits, along the plantar surface of the forefoot, and associated with the 3rd and 4th digits. 2. No organized fluid collection or abscess. 3. No evidence of marrow replacement processes or osteomyelitis. 4. Incidental note of marked dorsiflexion of the metatarsophalangeal joints. Electronically Signed: Jordi Maravilla MD at 21:23 EST ,
[2024-03-09] MEDS: HEPARIN/D5w 25,000 UNITS 25,000 UNITS/250 ML IV.SOLN. 10 UNITS CONT INF (14:09)
--- NOTE | 2024-03-09 14:12 | PCM.PN.SRG ---
Subjective Subjective I saw Eri today resting in bed. She reports ongoing pain in her right foot, pain medications are helping to manage this. She reports no new symptoms. She is tearful today and quite anxious about her upcoming procedures. Arterial duplex showed patent bypass with stable velocities. Her INR is down to 2.2 today and hemoglobin is stable. Objective Data Objective Data Vital Signs: Vital Signs Temp Pulse Resp BP Pulse Ox O2 Del Method 98.3 F 85 16 147/83 H 97 Room Air 03/09/24 14:00 03/09/24 14:00 03/09/24 14:00 03/09/24 14:00 03/09/24 14:00 03/09/24 14:00 Oxygen Delivery Method Room Air Weight: 149 lb Body Mass Index (BMI) 26.4 Intake & Output: Intake and Output for Last 24 Hours 03/07/24 03/08/24 03/09/24 23:59 23:59 23:59 Intake Total 2635.00 / 2635.00 800 / 800 Balance 2635.00 / 2635.00 800 / 800 Lab / Micro Data 03/09/24 07:30 03/09/24 07:30 Labs: Laboratory Results - last 24 hr 03/08/24 16:16: POC Glucose 143 H 03/09/24 06:05: POC Glucose 107 H 03/09/24 07:30: WBC 4.9, RBC 3.69 L, Hgb 11.7 L, Hct 35.6 L, MCV 96.5, MCH 31.7, MCHC 32.9, RDW Std Deviation 56.4 H, RDW Coeff of Kate 15.9 H, Plt Count 230, MPV 9.7, Immature Gran % (Auto) 0.200, Neut % (Auto) 50.2, Lymph % (Auto) 34.8, [place] % (Auto) 11.8 H, Eos % (Auto) 2.4, Baso % (Auto) 0.6, Absolute Neuts (auto) 2.5, Absolute Lymphs (auto) 1.71, Nucleated RBC % 0, PT 24.6 H, INR 2.2, Sodium 140, Potassium 3.7, Chloride 112 H, Carbon Dioxide 20.0 L, Anion Gap 9, BUN 17, Creatinine 0.96, Estim Creat Clear Calc 40.27, Est GFR (MDRD) Af Amer 71, Est GFR (MDRD) Non-Af 59 L, BUN/Creatinine Ratio 17.7, Glucose 118 H, Calcium 9.2 03/09/24 11:47: APTT 36.0 03/09/24 11:52: POC Glucose 140 H Radiography Diagnostic Testing: Radiology Impression Lower Extremity MRI 03/08/24 08:53 IMPRESSION: 1. Extensive subcutaneous edema along the dorsum of foot, additionally between the 1st and 2nd digits, along the plantar surface of the forefoot, and associated with the 3rd and 4th digits. 2. No organized fluid collection or abscess. 3. No evidence of marrow replacement processes or osteomyelitis. 4. Incidental note of marked dorsiflexion of the metatarsophalangeal joints. Electronically Signed: Jordi Maravilla MD at 21:23 EST , Physical Exam Const alert, oriented x3 and no apparent distress General Appearance: cooperative HEENT normocephalic, head/scalp atraumatic, hearing grossly normal bilaterally, external ears normal and external nose normal Eyes General Eye: normal appearance of both eyes Neck General: normal visual inspection and trachea midline Resp normal respiratory effort, normal air movement, no retractions and no use of accessory muscles Effort and Inspection: able to speak in complete sentences Cardio Rate: regular rate Extremity Extremity Narrative: Right lower extremity with wound dressings intact. Vascular exam stable with strong monophasic right PT and DP pulses. 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 N.p.o. orders are in for midnight 03/12. We again discussed the angiogram procedure details including risks, benefits, and recovery. All of her questions were addressed to her satisfaction. She remains agreeable to proceed. Her INR was 2.2 today so did initiate heparin drip with therapeutic weight-based dosing. This can be continued leading up to surgery, and will be stopped once she is in the [facility]. Also continue Plavix for now as long as hemoglobin remains stable. No need to hold Plavix for procedure. Charges/Coding Visit Charges Inpatient E&M: 88883 [facility] L1
--- NOTE | 2024-03-09 15:09 | CHAPLAIN ---
Type of Pastoral Visit _x__ Initial Visit ___ Follow-up Visit ___ On-call Visit ___ General Patient Visit ___ Spiritual Assessment ___ Family Conference ___ Bereavement ___ Rapid Response ___ Code Blue ___ Other (describe below) Pastoral Care Referral From _x__ Patient ___ Family _x__ Nurse ___ Physician ___ Galvanizing Pot Runner ___ Turret Punch Press Operator ___ Other (describe below) Sacrament/Intervention _x__ Active listening ___ Anointing ___ Sabianist ___ Bereavement ___ Communion _x__ Emmy exploration ___ ___ Life review _x__ Prayer ___ Reconciliation ___ Sacrament of Sick _x__ Supportive presence ___ Wedding ___ Other (describe below) Pastoral Comments patient is remembered from a previous admission; pt's nurse also asks for a visit to support this patient; pt's spouse is in the room but needs to leave to picking 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 worker 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; pt then gives a review of health with acknowledgment that surgery is expected to remove her toes; pt is quite emotional and tearful as she talks about this; pt admits that she is frightened and upset about this decision; pt says I can't imagine my foot without its toes; pt is asked to further share her feelings and how she is perceiving her life without toes; pt acknowledges that she does not handle pain very well at all and is lacking in emmy at this time; pt has identified herself in the past as a Zoroastrianism believer and a student of the Bible; pt acknowledges this and says yet I am struggling right now with emmy and why; pt is given time to express her feelings and thoughts; pt is giving calm presence and listening reflection; pt is offered choices for coping such as how to refocus, to be open to others who have had this experience, to talk often to God in prayer, and to live in the moment rather than fearing the future; patient welcomes visits and prayers for the future stay in the hospital
[2024-03-09] MEDS: Losartan Potassium 50 MG Tablet PO (16:14)
[2024-03-09 16:48] LABS: Bedside Glucose 126 mg/dL (74-106)
[2024-03-09 21:00] LABS: Partial Thromboplast Time 116.2 Seconds (24.1-36.2)
[2024-03-09] MEDS: Atorvastatin Calcium 20 MG Tablet PO (21:15)
[2024-03-09 23:56] LABS: Bedside Glucose 102 mg/dL (74-106)
[2024-03-10] VITALS (10 sets, daily range): BP systolic 139–156; BP diastolic 80–88; PULSE 63–97; RESP 14–18; TEMP 36.4–36.9; O2SAT 96–99; BMI 27.2
[2024-03-10] MEDS: Vancomycin Trough/Random Due 1 LAB MC (00:11)
[2024-03-10 01:01] LABS: Vancomycin, Trough Level 11.8 ug/mL (5.0-15.0)
--- NOTE | 2024-03-10 01:38 | PCM.RX.CS ---
Consult Antibiotic Management Pharmacy has been consulted to manage selected antibiotic: Vancomycin Type of Intervention Type of Consult: Follow-up Suspected Infection Suspected Infection: Osteomyelitis Labs Labs: Sodium 140 mmol/L (136-145) 03/09/24 07:30 Potassium 3.7 mmol/L (3.5-5.1) 03/09/24 07:30 Chloride 112 mmol/L (98-107) H 03/09/24 07:30 Carbon Dioxide 20.0 mmol/L (21.0-32.0) L 03/09/24 07:30 Anion Gap 9 (5-15) 03/09/24 07:30 BUN 17 mg/dL (7-18) 03/09/24 07:30 Creatinine 0.96 mg/dL (0.55-1.02) 03/09/24 07:30 Est GFR (MDRD) Af Amer 71 mL/min (>60) 03/09/24 07:30 Est GFR (MDRD) Non-Af 59 mL/min (>60) L 03/09/24 07:30 BUN/Creatinine Ratio 17.7 RATIO (10-20) 03/09/24 07:30 Glucose 118 mg/dL (74-106) H 03/09/24 07:30 Vancomycin Trough 11.8 ug/mL (5.0-15.0) 03/10/24 00:15 Dosing Weight Weight used for dosin.6 kg Estimated Creatinine Clearance Estimated Creatinine Clearance: 40 Goal Trough Goal Trough: 15-20 mcg/mL Pharmacy Plan for Drug Dosing Pharmacy Plan for Drug Dosing: Vancomycin trough level of 11.8, drawn 24.25hrs post-dose, was below the target range of 15-20. Will increase to 1500mg q24h. Per dosing calculator this should give a new estimated trough of 18. Will draw another trough level prior to third dose of the new regimen. Pharmacy Service will continue to monitor and adjust dosing as required. Follow-Up Labs Follow-Up Labs: Trough: Vancomycin Date/Time Labs Ordered Labs to be done on [date and time ordered]: 03/12/24 @0100
[2024-03-10] MEDS: Vancomycin HCl 1,500 MG in 0.9% Normal Saline (500mL Bag) 500 ML 250 MG IV (02:02)
[2024-03-10] MEDS: oxyCODONE 5 MG Tablet 10 MG PO ×4 (02:11→17:03)
[2024-03-10 05:36] LABS: Absolute Lymphocyte Count 2.69 X10^3/uL (0.83-4.51); Absolute Neutrophil Count 2.1 X10^3/uL (2.0-7.7); Basophil# 0.05 X10^3/uL; Basophil% 0.9 % (0-1); Eosinophil# 0.13 X10^3/uL; Eosinophils% 2.4 % (0-5); Hematocrit 37.4 % (37-47); Lymphocyte # 2.69 X10^3/ul (0.83-4.51); Mean Corp Hgb Conc 32.1 g/dL (32-36); Mean Corpuscular Hgb 31.3 pg (27.0-32.0); Mean Corpuscular Volume 97.4 fL (81-99); Mean Platelet Vol. 9.2 fl (6.2-12.0); Monocyte# 0.49 X10^3/uL; Monocyte% 8.9 % (0-10); NRBC Flagged by Analyzer 0.4 % (0-5); Neutrophil # 2.12 X10^3/uL (2.7-7.7); Neutrophil % 38.6 % (47-70); Platelet Count 235 K/mm3 (150-450); RBC Distribution Width CV 15.8 % (11.6-14.6); RBC Distribution Width SD 56.7 fl (35.1-43.9); Red Blood Count 3.84 M/mm3 (4.2-5.4); White Blood Count 5.5 K/mm3 (4.4-11.0)
[2024-03-10 06:02] LABS: Partial Thromboplast Time 70.5 Seconds (24.1-36.2)
[2024-03-10 06:10] LABS: Anion Gap 7 (5-15); BUN 16 mg/dL (7-18); BUN/Creat Ratio 14.8 RATIO (10-20); Calcium,Total 9.1 mg/dL (8.5-10.1); Chloride 111 mmol/L (98-107); Creatinine, Serum 1.08 mg/dL (0.55-1.02); EST Glomerular Filtration Rate 51 mL/min (>60); Est Glom Filt Rate - Afr Amer 62 mL/min (>60); Estimated Creatinine Clearance 36.34 ml/min; Glucose 132 mg/dL (74-106); Potassium 3.7 mmol/L (3.5-5.1); Sodium Level 139 mmol/L (136-145)
[2024-03-10] MEDS: Piperacil/Tazobactam 3.375 GM in 0.9% Normal Saline (50mL MB+) 50 ML IV ×3 (06:13→20:48)
[2024-03-10 06:59] LABS: Bedside Glucose 121 mg/dL (74-106)
[2024-03-10 08:28] LABS: International Normalized Ratio 1.5; Prothrombin Time (Protime)PT. 17.8 SECONDS (11.7-14.9)
[2024-03-10] MEDS: Lactobacillis Acidophilus 1 CAP PO ×4 (08:30→20:48)
[2024-03-10] MEDS: Sertraline 50 MG Tablet 25 MG PO (08:32)
[2024-03-10] MEDS: Metoprolol(XL)Succ 50 MG Tablet PO (08:32)
[2024-03-10] MEDS: Tolterodine Tartrate 2 MG CAP.SA PO (08:32)
[2024-03-10] MEDS: Magnesium Chloride 64 MG Delay Rel.Tablet 128 MG PO (08:33)
[2024-03-10] MEDS: Furosemide 40 MG Tablet PO (08:33)
[2024-03-10] MEDS: Clopidogrel Bisulfate 75 MG Tablet PO (08:33)
[2024-03-10] MEDS: Spironolactone 25 MG Tablet 12.5 MG PO (08:34)
--- NOTE | 2024-03-10 09:12 | PN_ITS ---
Subjective Subjective Patient was seen this morning for follow up on right foot. She is resting in bed, she relates this morning she did have diarrhea. Otherwise no other complaints at this time. Objective Data Objective Data Vital Signs: Vital Signs Temp Pulse Resp BP Pulse Ox O2 Del Method 97.8 F 63 14 156/88 H 96 Room Air 03/10/24 06:48 03/10/24 08:32 03/10/24 06:48 03/10/24 06:48 03/10/24 06:48 03/10/24 06:48 Oxygen Delivery Method Room Air Weight: 69.8 kg Body Mass Index (BMI) 27.2 Intake & Output: Intake and Output for Last 24 Hours 03/08/24 03/09/24 03/10/24 23:59 23:59 23:59 Intake Total 2635.00 / 2635.00 920 / 920 580 / 580 Output Total 2 / Balance 2635.00 / 2635.00 920 / 920 578 / 578 Lab / Micro Data 03/10/24 05:30 03/10/24 05:30 Labs: Laboratory Results - last 24 hr 03/09/24 11:47: APTT 36.0 03/09/24 11:52: POC Glucose 140 H 03/09/24 16:25: POC Glucose 126 H 03/09/24 20:04: APTT 116.2 H* 03/09/24 23:37: POC Glucose 102 03/10/24 00:15: Vancomycin Trough 11.8 03/10/24 05:30: WBC 5.5, RBC 3.84 L, Hgb 12.0, Hct 37.4, MCV 97.4, MCH 31.3, MCHC 32.1, RDW Std Deviation 56.7 H, RDW Coeff of Kate 15.8 H, Plt Count 235, MPV 9.2, Immature Gran % (Auto) 0.200, Neut % (Auto) 38.6 L, Lymph % (Auto) 49.0 H, [place] % (Auto) 8.9, Eos % (Auto) 2.4, Baso % (Auto) 0.9, Absolute Neuts (auto) 2.1, Absolute Lymphs (auto) 2.69, Nucleated RBC % 0.4, PT 17.8 H, INR 1.5, APTT 70.5 H, Sodium 139, Potassium 3.7, Chloride 111 H, Carbon Dioxide 21.0, Anion Gap 7, BUN 16, Creatinine 1.08 H, Estim Creat Clear Calc 36.34, Est GFR (MDRD) Af Amer 62, Est GFR (MDRD) Non-Af 51 L, BUN/Creatinine Ratio 14.8, Glucose 132 H , Calcium 9.1 03/10/24 06:22: POC Glucose 121 H Micro: Microbiology 03/07/24 22:50 Blood Culture (Wb) - Anticubital Left Blood Culture - Preliminary No growth in 48 hours. Physical Exam Const alert, oriented x3 and no apparent distress Constitutional Narrative: Left foot with dry gangrene eschar changes to dorsal 1st and 3rd toes, and small little eschars to rest of toes dorsally, there is no purulence, and no cellulitis at this time, no maloder, no fluctuance, no crepitus, no visible abscess, no edema, with foot otherwise is stable. Assessment & Plan Assessment/Plan (1) Black toe: (2) Acute osteomyelitis of right foot: PLAN: Plan Evaluation performed. Reviewed diagnostic data. Left foot xray with possible osteomyelitis 1st toe proximal phalanx - ordered MRI right foot for further evaluation - reviewed, no evidence of osteomyelitis. She remains of IV antibiotics - there is no drainage to culture at this time. Consult placed to vascular surgery. Planning further evaluation intervention on Tuesday. Plans for TMA after vascular intervention. Will continue to follow closely.
[2024-03-10] MEDS: Ferrous Sulfate 325 MG Tablet PO (11:44)
[2024-03-10 12:01] LABS: Partial Thromboplast Time 57.4 Seconds (24.1-36.2)
[2024-03-10 12:02] LABS: Bedside Glucose 123 mg/dL (74-106)
--- NOTE | 2024-03-10 14:46 | PCM.PN.HOSP ---
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 (03/08/24) Overweight (03/08/24) Dilated cardiomyopathy (03/08/24) Peripheral vascular disease, unspecified (03/08/24) Gangrene, not elsewhere classified (03/08/24) Cellulitis of right toe (03/08/24) Primary osteoarthritis, unspecified site (03/08/24) Other acute osteomyelitis, right ankle and foot (03/08/24) Other malaise (03/08/24) Other specified postprocedural states (03/08/24) Objective Data Objective Data Vital Signs: Vital Signs Temp Pulse Resp BP Pulse Ox O2 Del Method 98.4 F 77 18 150/88 H 97 Room Air 03/10/24 10:06 03/10/24 11:00 03/10/24 10:06 03/10/24 10:06 03/10/24 10:06 03/10/24 10:06 Oxygen Delivery Method Room Air Weight: 153 lb 14.122 oz Body Mass Index (BMI) 27.2 Intake & Output: Intake and Output for Last 24 Hours 03/08/24 03/09/24 03/10/24 23:59 23:59 23:59 Intake Total 2635.00 / 2635.00 920 / 920 1024.85 / 1024.85 Output Total 2 / 2 Balance 2635.00 / 2635.00 920 / 920 1022.85 / 1022.85 Lab / Micro Data 03/10/24 05:30 03/10/24 05:30 Labs: Laboratory Results - last 24 hr 03/09/24 16:25: POC Glucose 126 H 03/09/24 20:04: APTT 116.2 H* 03/09/24 23:37: POC Glucose 102 03/10/24 00:15: Vancomycin Trough 11.8 03/10/24 05:30: WBC 5.5, RBC 3.84 L, Hgb 12.0, Hct 37.4, MCV 97.4, MCH 31.3, MCHC 32.1, RDW Std Deviation 56.7 H, RDW Coeff of Kate 15.8 H, Plt Count 235, MPV 9.2, Immature Gran % (Auto) 0.200, Neut % (Auto) 38.6 L, Lymph % (Auto) 49.0 H, [place] % (Auto) 8.9, Eos % (Auto) 2.4, Baso % (Auto) 0.9, Absolute Neuts (auto) 2.1, Absolute Lymphs (auto) 2.69, Nucleated RBC % 0.4, PT 17.8 H, INR 1.5, APTT 70.5 H, Sodium 139, Potassium 3.7, Chloride 111 H, Carbon Dioxide 21.0, Anion Gap 7, BUN 16, Creatinine 1.08 H, Estim Creat Clear Calc 36.34, Est GFR (MDRD) Af Amer 62, Est GFR (MDRD) Non-Af 51 L, BUN/Creatinine Ratio 14.8, Glucose 132 H, Calcium 9.1 03/10/24 06:22: POC Glucose 121 H 03/10/24 11:30: APTT 57.4 H 03/10/24 11:42: POC Glucose 123 H Micro: Microbiology 03/07/24 22:50 Blood Culture (Wb) - Anticubital Left Blood Culture - Preliminary No growth in 48 hours. Physical Exam Narrative Seen and examined No acute issues. Patient still has dry gangrene. Wound photo reviewed and shows right great toe and third toe necrotic patch. There is extension of the spotty necrotic patch over second and fourth toe. Patient was evaluated by vascular surgeon and technician support association. Discussed with the technician support association. All 5 toes and forefoot is dry, wrinkled and shriveled suggestive of dry gangrene/severe small vessel atherosclerotic disease. No fever. Physical exam General: Alert, Oriented x3, Cooperative HEENT: Atraumatic, PERRLA, EOMI, Normocephalic Oral: No Gingival or Mucosal Lesions/ Ulcerations Neck: Supple, No JVD, Negative Carotid Bruits Chest wall/Lungs: Air entry diminished in bilateral lung bases. No crepitation/rhonchi Cardiovascular: Regular rate, Regular Rhythm, Normal S1, Normal S2, systolic murmur right second ICS and LLSB Abdomen: Bowel Sounds Present, Soft, Non Tender, Non-Distended : No dysuria. No renal angle tenderness. No suprapubic tenderness. Extremities: No edema, Capillary Refill Less than 3 Seconds Skin: Necrotic skin of first and third toe with spotty black patch on the right second and fourth toe suggestive of dry gangrene. Mild tenderness present. Neuropathy. Musculoskeletal: No Tenderness to Palpation of Joints or Extremities Neurological: Cranial nerves II-XII grossly intact, DTR 2+/4. Chronic neuropathy Psych/Mental Status: Flat affect and sad after hearing TMA Assessment & Plan Assessment/Plan (1) Osteomyelitis of ankle or foot, right, acute: (2) Cellulitis: QUALIFIERS: Site of cellulitis: extremity Site of cellulitis of extremity: toe Laterality: right Qualified Code(s): L03.031 - Cellulitis of right toe (3) Diabetic wet gangrene of the foot: (4) Dry gangrene: (5) Peripheral vascular disease: (6) History of femoropopliteal bypass: (7) Factor V Leiden: (8) Debility: (9) Osteoarthritis: QUALIFIERS: Osteoarthritis location: unspecified site Osteoarthritis type: primary Qualified Code(s): M19.91 - Primary osteoarthritis, unspecified site (10) Overweight (BMI 25.0-29.9): (11) Dilated cardiomyopathy: PLAN: Plan 1. Osteomyelitis and Cellulitis complicated by clinical evidence of Dry Gangrene with recent conversion to Wet Gangrene after recent vascular surgery on the RLE for PVD on January 19, [address] Rojas of vascular surgery causing ischemia in the toes of the Right foot - Admit to PCU Continue empiric IV Vancomycin and IV Zosyn. Pain control. 03/08: Discussed with the podiatry Dr. Blanca. MRI is ordered. Foot x-ray shows cortical lucency and demineralization along lateral base of first distal phalanx of right foot therefore osteomyelitis. MRI is pending. Dr. Tang he might do local debridement. Vascular surgery is consulted for opinion regarding circulation and perfusion of the foot. 03/09: MRI foot reviewed. No organized fluid collection or abscess but extensive subcutaneous edema along dorsum and plantar surface of forefoot. No evidence of marrow replacement process or osteomyelitis. Vascular surgery reviewed. LEAS ordered. Plan for angiogram on Tuesday and thereafter TMA. Discussed with the technician support association. Dry gangrene turning to wet gangrene. Seen by ID. Continue vancomycin and Zosyn. 03/10: Continue IV antibiotics. the plan as already mentioned above. Most likely TMA on Wednesday 2. Nvbogh-C-Btqibq deficiency; on Warfarin - Hold Warfarin with impending amputation. Check PT/INR. 03/08: INR 4.7. Hold warfarin. 03/09: INR 2.2. On Plavix. Patient is started on a heparin drip. 03/10: IV heparin drip. 3. DM-2; of unknown control on Glimepiride - Hold Glimepiride and keep NPO for now. Check FSBS q. 6 hours plus SSI. Check HgbA1c to objectively assess quality of diabetic control. 01/07: Glucoses reasonably controlled 135 207. Continue same regimen. 4. Overweight; with BMI of 25.7 this admission with Chronic Debility with OA adding to the medical complexity of #1 - #3 - Weight loss will be recommended. Check TSH. PT/OT and Case Management to consult and treat on-rounds in the AM for further recommendations with help appreciated in advance. These issues complicate her case and may hamper recovery. 5. Essential hypertension - Decrease Lasix to once daily and continue Aldactone and Losartan. Give Hydralazine IV prn for systolic blood pressure > 160 mmHg. 6. Hyperlipidemia - Resume statin at decreased recommended dose for her age and check Lipid Profile. 7. History of CHF; on Lasix, Metoprolol and Aldactone - Stable with no current signs of volume overload. Decrease Lasix but continue other agents as previous. 8. History of dilated cardiomyopathy with LVEF ~35% (01/2024) - Noted. 9. History of prolonged QT-interval - Stable. Minimize potentially QT-prolonging agents if possible. 10. History of carotid stenosis; s/p carotid endarterectomy - Noted. 11. Depression with anxiety; on sertraline - Maintain current regimen. 12. JOAO - Stable with hemoglobin of 12.3 g/dL present on admission. 13. Overactive bladder - Resume Oxybutynin as before. 14. History of stage II decubitus ulcer - Noted. 15. DVT prophylaxis - Check PT/INR with patient on Warfarin. Hold anticoagulants with impending amputations. SCD's ordered. Clinical Impression(s) from Imaging Studies Foot X-Ray 03/07/24 22:20 IMPRESSION: Cortical lucency and demineralization along the lateral base of the first distal phalanx is evident compared to the prior examination suggesting osteomyelitis at this location. Lower Extremity MRI 03/08/24 08:53 IMPRESSION: 1. Extensive subcutaneous edema along the dorsum of foot, additionally between the 1st and 2nd digits, along the plantar surface of the forefoot, and associated with the 3rd and 4th digits. 2. No organized fluid collection or abscess. 3. No evidence of marrow replacement processes or osteomyelitis. 4. Incidental note of marked dorsiflexion of the metatarsophalangeal joints. Electronically Signed: Jordi Maravilla MD at 21:23 EST , Charges/Coding Visit Charges Inpatient E&M: 50718 Subs Hosp L2
--- NOTE | 2024-03-10 15:03 | CASEMGMT ---
Social Work A list of group home facilities was created in [facility] if needed for pt, of SNFs in network w/pt's insurance, in pt's preferred geographic area, and complete w/quality and resource use data. [address]
[2024-03-10] MEDS: Metoprolol(XL)Succ 25 MG Tablet PO (17:03)
[2024-03-10] MEDS: Losartan Potassium 50 MG Tablet PO (17:05)
[2024-03-10 17:25] LABS: Bedside Glucose 104 mg/dL (74-106)
[2024-03-10] MEDS: Heparin Injection (Vial) 5,000 UNIT/ML VIAL IV (18:19)
[2024-03-10] MEDS: Atorvastatin Calcium 20 MG Tablet PO (20:47)
[2024-03-10 21:50] LABS: Bedside Glucose 167 mg/dL (74-106)
[2024-03-10] MEDS: HEPARIN/D5w 25,000 UNITS 25,000 UNITS/250 ML IV.SOLN. 9 UNITS CONT INF (23:38)
[2024-03-10 23:55] LABS: Partial Thromboplast Time 82.4 Seconds (24.1-36.2)
[2024-03-11] VITALS (8 sets, daily range): BP systolic 138–166; BP diastolic 75–92; PULSE 58–107; RESP 16–18; TEMP 36.2–36.9; O2SAT 94–98; BMI 27.3
[2024-03-11] MEDS: Vancomycin HCl 1,500 MG in 0.9% Normal Saline (500mL Bag) 500 ML 200 MG IV (01:33)
[2024-03-11] MEDS: Acetaminophen 325 MG Tablet 650 MG PO ×2 (02:37→17:59)
[2024-03-11] MEDS: oxyCODONE 5 MG Tablet 10 MG PO ×5 (02:37→23:34)
[2024-03-11] MEDS: Piperacil/Tazobactam 3.375 GM in 0.9% Normal Saline (50mL MB+) 50 ML IV ×3 (06:25→21:04)
[2024-03-11 06:39] LABS: Partial Thromboplast Time 72.4 Seconds (24.1-36.2)
[2024-03-11 06:59] LABS: International Normalized Ratio 1.1; Prothrombin Time (Protime)PT. 14.3 SECONDS (11.7-14.9)
[2024-03-11 08:12] LABS: Bedside Glucose 132 mg/dL (74-106)
[2024-03-11] MEDS: Lactobacillis Acidophilus 1 CAP PO ×4 (09:08→19:32)
[2024-03-11] MEDS: Sertraline 50 MG Tablet 25 MG PO (09:08)
[2024-03-11] MEDS: Metoprolol(XL)Succ 50 MG Tablet PO (09:08)
[2024-03-11] MEDS: Spironolactone 25 MG Tablet 12.5 MG PO (09:08)
[2024-03-11] MEDS: Furosemide 40 MG Tablet PO (09:09)
[2024-03-11] MEDS: Tolterodine Tartrate 2 MG CAP.SA PO (09:09)
[2024-03-11] MEDS: Magnesium Chloride 64 MG Delay Rel.Tablet 128 MG PO (09:09)
[2024-03-11] MEDS: Clopidogrel Bisulfate 75 MG Tablet PO (09:09)
--- NOTE | 2024-03-11 11:36 | CPS ---
Attempted to do SMI with pt but, they were unavailable
[2024-03-11] MEDS: Ferrous Sulfate 325 MG Tablet PO (11:50)
[2024-03-11 12:14] LABS: Bedside Glucose 145 mg/dL (74-106)
[2024-03-11 12:38] LABS: Partial Thromboplast Time 68.3 Seconds (24.1-36.2)
--- NOTE | 2024-03-11 15:28 | PN.HOSP_ITS ---
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 (03/08/24) Overweight (03/08/24) Dilated cardiomyopathy (03/08/24) Peripheral vascular disease, unspecified (03/08/24) Gangrene, not elsewhere classified (03/08/24) Cellulitis of right toe (03/08/24) Primary osteoarthritis, unspecified site (03/08/24) Other acute osteomyelitis, right ankle and foot (03/08/24) Other malaise (03/08/24) Other specified postprocedural states (03/08/24) Objective Data Objective Data Vital Signs: Vital Signs Temp Pulse Resp BP Pulse Ox O2 Del Method 98.5 F 72 18 143/92 H 94 Room Air 03/11/24 15:11 03/11/24 15:11 03/11/24 15:11 03/11/24 15:11 03/11/24 15:11 03/11/24 15:11 Oxygen Delivery Method Room Air Weight: 154 lb 5.177 oz Body Mass Index (BMI) 27.3 Intake & Output: Intake and Output for Last 24 Hours 03/09/24 03/10/24 03/11/24 23:59 23:59 23:59 Intake Total 920 / 920 1559.22 / 1562.52 973.51 / 973.51 Output Total 2 / 2 Balance 920 / 920 1557.22 / 1560.52 973.51 / 973.51 Lab / Micro Data 03/10/24 05:30 03/10/24 05:30 Labs: Laboratory Results - last 24 hr 03/10/24 17:03: POC Glucose 104 03/10/24 17:31: APTT 40.0 H 03/10/24 20:54: POC Glucose 167 H 03/10/24 23:37: APTT 82.4 H 03/11/24 06:07: PT 14.3, INR 1.1, APTT 72.4 H 03/11/24 06:23: POC Glucose 132 H 03/11/24 11:49: POC Glucose 145 H 03/11/24 12:05: APTT 68.3 H Micro: Microbiology 03/07/24 22:50 Blood Culture (Wb) - Anticubital Left Blood Culture - Preliminary No growth in 48 hours. Physical Exam Narrative Seen and examined No acute issues. Patient still has dry gangrene. All 5 toes and forefoot is dry, wrinkled and shriveled suggestive of dry gangrene/severe small vessel atherosclerotic disease. No fever. Physical exam General: Alert, Oriented x3, Cooperative HEENT: Atraumatic, PERRLA, EOMI, Normocephalic Oral: No Gingival or Mucosal Lesions/ Ulcerations Neck: Supple, No JVD, Negative Carotid Bruits Chest wall/Lungs: Air entry diminished in bilateral lung bases. No crepitation/rhonchi Cardiovascular: Regular rate, Regular Rhythm, Normal S1, Normal S2, systolic murmur right second ICS and LLSB Abdomen: Bowel Sounds Present, Soft, Non Tender, Non-Distended : No dysuria. No renal angle tenderness. No suprapubic tenderness. Extremities: No edema, Capillary Refill Less than 3 Seconds Skin: Necrotic skin of first and third toe with spotty black patch on the right second and fourth toe suggestive of dry gangrene. Chronic neuropathy. Musculoskeletal: No Tenderness to Palpation of Joints or Extremities Neurological: Cranial nerves II-XII grossly intact, DTR 2+/4. Chronic neuropathy Psych/Mental Status: Flat affect and sad after hearing TMA Assessment & Plan Assessment/Plan (1) Osteomyelitis of ankle or foot, right, acute: (2) Cellulitis: QUALIFIERS: Site of cellulitis: extremity Site of cellulitis of extremity: toe Laterality: right Qualified Code(s): L03.031 - Cellulitis of right toe (3) Diabetic wet gangrene of the foot: (4) Dry gangrene: (5) Peripheral vascular disease: (6) History of femoropopliteal bypass: (7) Factor V Leiden: (8) Debility: (9) Osteoarthritis: QUALIFIERS: Osteoarthritis location: unspecified site O steoarthritis type: primary Qualified Code(s): M19.91 - Primary osteoarthritis, unspecified site (10) Overweight (BMI 25.0-29.9): (11) Dilated cardiomyopathy: PLAN: Plan 1. Osteomyelitis and Cellulitis complicated by clinical evidence of Dry Gangrene with recent conversion to Wet Gangrene after recent vascular surgery on the RLE for PVD on January 19, [address] Rojas of vascular surgery causing ischemia in the toes of the Right foot - Admit to PCU Continue empiric IV Vancomycin and IV Zosyn. Pain control. 03/08: Discussed with the podiatry Dr. Blanca. MRI is ordered. Foot x-ray shows cortical lucency and demineralization along lateral base of first distal phalanx of right foot therefore osteomyelitis. MRI is pending. Dr. Tang he might do local debridement. Vascular surgery is consulted for opinion regarding circulation and perfusion of the foot. 03/09: MRI foot reviewed. No organized fluid collection or abscess but extensive subcutaneous edema along dorsum and plantar surface of forefoot. No evidence of marrow replacement process or osteomyelitis. Vascular surgery reviewed. LEAS ordered. Plan for angiogram on Tuesday and thereafter TMA. Discussed with the pharmacy account director. Dry gangrene turning to wet gangrene. Seen by ID. Continue vancomycin and Zosyn. 03/10: Continue IV antibiotics. the plan as already mentioned above. Most likely TMA on Sunday 03/11: No acute change. Plan for angiogram tomorrow AM. Blood culture does not show growth for 48 hours. 2. Nxyijy-A-Ewrmbt deficiency; on Warfarin - Hold Warfarin with impending amputation. Check PT/INR. 03/08: INR 4.7. Hold warfarin. 03/09: INR 2.2. On Plavix. Patient is started on a heparin drip. 03/10: IV heparin drip. 3. DM-2; of unknown control on Glimepiride - Hold Glimepiride and keep NPO for now. Check FSBS q. 6 hours plus SSI. Check HgbA1c to objectively assess quality of diabetic control. 01/07: Glucoses reasonably controlled 135 207. Continue same regimen. 01/10: Glucose 104. In the morning it was 132. Glucose in acceptable limit therefore I would not change it is very. 4. Overweight; with BMI of 25.7 this admission with Chronic Debility with OA adding to the medical complexity of #1 - #3 - Weight loss will be recommended. Check TSH. PT/OT and Case Management to consult and treat on-rounds in the AM for further recommendations with help appreciated in advance. These issues complicate her case and may hamper recovery. 5. Essential hypertension - Decrease Lasix to once daily and continue Aldactone and Losartan. Give Hydralazine IV prn for systolic blood pressure > 160 mmHg. 6. Hyperlipidemia - Resume statin at decreased recommended dose for her age and check Lipid Profile. 7. History of CHF; on Lasix, Metoprolol and Aldactone - Stable with no current signs of volume overload. Decrease Lasix but continue other agents as previous. 8. History of dilated cardiomyopathy with LVEF ~35% (01/2024) - Noted. 9. History of prolonged QT-interval - Stable. Minimize potentially QT- prolonging agents if possible. 10. History of carotid stenosis; s/p carotid endarterectomy - Noted. 11. Depression with anxiety; on sertraline - Maintain current regimen. 12. JOAO - Stable with hemoglobin of 12.3 g/dL present on admission. 13. Overactive bladder - Resume Oxybutynin as before. 14. History of stage II decubitus ulcer - Noted. 15. DVT prophylaxis - Check PT/INR with patient on Warfarin. Hold anticoagulants with impending amputations. SCD's ordered. Clinical Impression(s) from Imaging Studies Foot X-Ray 03/07/24 22:20 IMPRESSION: Cortical lucency and demineralization along the lateral base of the first distal phalanx is evident compared to the prior examination suggesting osteomyelitis at this location. Lower Extremity MRI 03/08/24 08:53 IMPRESSION: 1. Extensive subcutaneous edema along the dorsum of foot, additionally between the 1st and 2nd digits, along the plantar surface of the forefoot, and associated with the 3rd and 4th digits. 2. No organized fluid collection or abscess. 3. No evidence of marrow replacement processes or osteomyelitis. 4. Incidental note of marked dorsiflexion of the metatarsophalangeal joints. Electronically Signed: Jordi Maravilla MD at 21:23 EST , Charges/Coding Visit Charges Inpatient E&M: 73986 Subs Hosp L2
--- NOTE | 2024-03-11 17:22 | PCM.PROGNOTE ---
Subjective Subjective Patient was seen today for follow up right foot. She has no new complaints. No complaints of f/c/n/v. Scheduled for vascular intervention tomorrow. Objective Data Objective Data Vital Signs: Vital Signs Temp Pulse Resp BP Pulse Ox O2 Del Method 98.5 F 72 18 143/92 H 94 Room Air 03/11/24 15:11 03/11/24 15:11 03/11/24 15:11 03/11/24 15:11 03/11/24 15:11 03/11/24 15:11 Oxygen Delivery Method Room Air Weight: 70 kg Body Mass Index (BMI) 27.3 Intake & Output: Intake and Output for Last 24 Hours 03/09/24 03/10/24 03/11/24 23:59 23:59 23:59 Intake Total 920 / 920 1559.22 / 1562.52 973.51 / 973.51 Output Total 2 / 2 Balance 920 / 920 1557.22 / 1560.52 973.51 / 973.51 Lab / Micro Data 03/10/24 05:30 03/10/24 05:30 Labs: Laboratory Results - last 24 hr 03/10/24 17:03: POC Glucose 104 03/10/24 17:31: APTT 40.0 H 03/10/24 20:54: POC Glucose 167 H 03/10/24 23:37: APTT 82.4 H 03/11/24 06:07: PT 14.3, INR 1.1, APTT 72.4 H 03/11/24 06:23: POC Glucose 132 H 03/11/24 11:49: POC Glucose 145 H 03/11/24 12:05: APTT 68.3 H Micro: Microbiology 03/07/24 22:50 Blood Culture (Wb) - Anticubital Left Blood Culture - Preliminary No growth in 48 hours. Physical Exam Const alert, oriented x3 and no apparent distress Constitutional Narrative: Left foot with dry gangrene eschar changes to dorsal 1st and 3rd toes, and small little eschars to rest of toes dorsally, there is no purulence, and no cellulitis at this time, no maloder, no fluctuance, no crepitus, no visible abscess, no edema, with foot otherwise is stable. Assessment & Plan Assessment/Plan (1) Black toe: (2) Acute osteomyelitis of right foot: PLAN: Plan Evaluation performed. Reviewed diagnostic data. Left foot xray with possible osteomyelitis 1st toe proximal phalanx - ordered MRI right foot for further evaluation - reviewed, no evidence of osteomyelitis. She remains of IV antibiotics - there is no drainage to culture at this time, ID is on consult. Consult placed to vascular surgery. Planning further evaluation intervention on Tuesday. Plans for TMA after vascular intervention. Will continue to follow closely.
[2024-03-11 17:23] LABS: Bedside Glucose 122 mg/dL (74-106)
[2024-03-11] MEDS: Metoprolol(XL)Succ 25 MG Tablet PO (17:58)
[2024-03-11] MEDS: Losartan Potassium 50 MG Tablet PO (17:59)
[2024-03-11] MEDS: Atorvastatin Calcium 20 MG Tablet PO (19:32)
[2024-03-11] MEDS: 0.9% Saline Lock 10 ML Syringe IV (19:33)
[2024-03-11 21:12] LABS: Bedside Glucose 139 mg/dL (74-106)
[2024-03-12] VITALS (34 sets, daily range): BP systolic 69–168; BP diastolic 32–110; PULSE 68–139; RESP 12–18; TEMP 36.2–37.2; O2SAT 93–100; BMI 27.3
--- NOTE | 2024-03-12 02:21 | PCM.RX.CS ---
Consult Antibiotic Management Pharmacy has been consulted to manage selected antibiotic: Vancomycin Type of Intervention Type of Consult: Follow-up Suspected Infection Suspected Infection: Osteomyelitis Labs Labs: Sodium 139 mmol/L (136-145) 03/10/24 05:30 Potassium 3.7 mmol/L (3.5-5.1) 03/10/24 05:30 Chloride 111 mmol/L (98-107) H 03/10/24 05:30 Carbon Dioxide 21.0 mmol/L (21.0-32.0) 03/10/24 05:30 Anion Gap 7 (5-15) 03/10/24 05:30 BUN 16 mg/dL (7-18) 03/10/24 05:30 Creatinine 1.08 mg/dL (0.55-1.02) H 03/10/24 05:30 Est GFR (MDRD) Af Amer 62 mL/min (>60) 03/10/24 05:30 Est GFR (MDRD) Non-Af 51 mL/min (>60) L 03/10/24 05:30 BUN/Creatinine Ratio 14.8 RATIO (10-20) 03/10/24 05:30 Glucose 132 mg/dL (74-106) H 03/10/24 05:30 Vancomycin Trough 17.0 ug/mL (5.0-15.0) H 03/12/24 01:00 Microbiology Microbiology: Microbiology 03/07/24 22:50 Blood Culture (Wb) - Anticubital Left Blood Culture - Preliminary No growth in 48 hours. Dosing Weight Weight used for dosin kg Estimated Creatinine Clearance Estimated Creatinine Clearance: 36 Goal Trough Goal Trough: 15-20 mcg/mL Pharmacy Plan for Drug Dosing Pharmacy Plan for Drug Dosing: Vancomycin trough level of 17.0, drawn 23.5hrs post-dose, was within the target range of 15-20. Will continue dosing at 1500mg q24h, and will draw another trough in two days. Pharmacy Service will continue to monitor and adjust dosing as required. Follow-Up Labs Follow-Up Labs: Trough: Vancomycin Date/Time Labs Ordered Labs to be done on [date and time ordered]: 03/14/24 @0100
[2024-03-12] MEDS: Vancomycin HCl 1,500 MG in 0.9% Normal Saline (500mL Bag) 500 ML 200 MG IV (02:23)
[2024-03-12] MEDS: oxyCODONE 5 MG Tablet 10 MG PO (05:08)
[2024-03-12] MEDS: Acetaminophen 325 MG Tablet 650 MG PO (05:08)
[2024-03-12 05:38] LABS: Bedside Glucose 144 mg/dL (74-106)
[2024-03-12] MEDS: Piperacil/Tazobactam 3.375 GM in 0.9% Normal Saline (50mL MB+) 50 ML IV ×3 (06:12→20:57)
[2024-03-12] MEDS: ALPRAZolam 0.5 MG Tablet PO (06:30)
[2024-03-12 06:42] LABS: Absolute Lymphocyte Count 1.83 X10^3/uL (0.83-4.51); Absolute Neutrophil Count 2.9 X10^3/uL (2.0-7.7); Basophil# 0.05 X10^3/uL; Basophil% 0.9 % (0-1); Eosinophils% 1.9 % (0-5); Hematocrit 37.5 % (37-47); Hemoglobin 12.7 g/dL (12.0-15.0); Lymphocyte # 1.83 X10^3/ul (0.83-4.51); Lymphocyte % 33.9 % (19-41); Mean Corp Hgb Conc 33.9 g/dL (32-36); Mean Corpuscular Volume 94.5 fL (81-99); Mean Platelet Vol. 9.4 fl (6.2-12.0); Monocyte# 0.45 X10^3/uL; Monocyte% 8.3 % (0-10); NRBC Flagged by Analyzer 0.4 % (0-5); Neutrophil # 2.94 X10^3/uL (2.7-7.7); Neutrophil % 54.4 % (47-70); Platelet Count 269 K/mm3 (150-450); RBC Distribution Width CV 15.5 % (11.6-14.6); RBC Distribution Width SD 53.3 fl (35.1-43.9); Red Blood Count 3.97 M/mm3 (4.2-5.4); White Blood Count 5.4 K/mm3 (4.4-11.0)
[2024-03-12 06:59] LABS: International Normalized Ratio 1.1; Prothrombin Time (Protime)PT. 14.3 SECONDS (11.7-14.9)
[2024-03-12 07:00] LABS: Partial Thromboplast Time 57.4 Seconds (24.1-36.2)
[2024-03-12 07:31] LABS: Anion Gap 11 (5-15); BUN 12 mg/dL (7-18); BUN/Creat Ratio 10.7 RATIO (10-20); Calcium,Total 9.5 mg/dL (8.5-10.1); Chloride 108 mmol/L (98-107); Creatinine, Serum 1.12 mg/dL (0.55-1.02); EST Glomerular Filtration Rate 49 mL/min (>60); Est Glom Filt Rate - Afr Amer 60 mL/min (>60); Estimated Creatinine Clearance 35.09 ml/min; Glucose 162 mg/dL (74-106); Potassium 3.5 mmol/L (3.5-5.1); Sodium Level 138 mmol/L (136-145)
[2024-03-12] MEDS: Lactated Ringers 1,000 ML 15 ML IV (08:30)
[2024-03-12] MEDS: Clopidogrel Bisulfate 75 MG Tablet PO (09:31)
--- NOTE | 2024-03-12 09:35 | PCM.PRE.AN2 ---
ASA Classification* ASA Classification ASA Classification: 3 Assessment & Plan Anesthesia* Anesthesia Assessment Anesthesia Assessment: Discussed sedation and/or anesthesia options, risks, benefits, and alternatives with patient/parents/legal guardian/POA. Questions invited. The patient/parents/legal guardian/POA seems to understand and agrees to proceed with anesthesia plan. Reviewed the physical assessment, medical history, allergy history and patient home medications list prior to surgery/procedure/anesthetic and documented any changes. Performed airway and anesthesia risk assessments. Anesthesia Type Anesthesia Type: MAC History Source History Obtained from:: Patient and Chart Anesthesia Focused Assessment* Temperature: 97.2 F Pulse Rate: 81 Blood Pressure: 142/74 Respiratory Rate: 12 Pulse Ox: 95 Oxygen Delivery Method: Room Air Airway Assessment Mouth opens: >3 cm Mallampati Score: III Teeth Condition: Caps/Crowns (Top front incisors are capped. All tight.) Neck Range of motion (ROM): Limited ROM (Somewhat decreased extension.) Focused Labs Anesthesia Preop lab: CBC WBC 5.4 K/mm3 (4.4-11.0) 03/12/24 06:16 RBC 3.97 M/mm3 (4.2-5.4) L 03/12/24 06:16 Hgb 12.7 g/dL (12.0-15.0) 03/12/24 06:16 Hct 37.5 % (37-47) 03/12/24 06:16 Plt Count 269 K/mm3 (150-450) 03/12/24 06:16 CHEMISTRY Potassium 3.5 mmol/L (3.5-5.1) 03/12/24 06:16 Sodium 138 mmol/L (136-145) 03/12/24 06:16 Magnesium 2.3 mg/dL (1.6-2.6) 03/08/24 05:15 Phosphorus 4.1 mg/dL (2.5-4.9) 03/08/24 05:15 BUN 12 mg/dL (7-18) 03/12/24 06:16 Creatinine 1.12 mg/dL (0.55-1.02) H 03/12/24 06:16 Glucose 162 mg/dL (74-106) H 03/12/24 06:16 POC Glucose 144 mg/dL (74-106) H 03/12/24 05:15 TSH 5.590 uIU/mL (0.358-3.740) H 03/08/24 05:15 COAG PT 14.3 SECONDS (11.7-14.9) 03/12/24 06:16 Pre-Assessment Diagnosis/Proposed Procedure Planned Operative Procedure(s): Abdominal aorta angiogram in Director Of Curriculum And Instruction Anesthesia History Anesthesia History - automation technician: Anesthesia History - automation technician Hx Hospitalization Any Problems With Anesthesia No 03/11/24 21:22 Cholinesterase deficiency No 03/11/24 21:22 You/Your Family Experience No 03/11/24 21:22 fever (hyperthermia) with Relationship Recent Exposure to Contagious No 03/11/24 21:22 Disease Does patient have nerve No 03/11/24 21:22 stimulator Patient instructed to have device shut off --Does patient have Pacemaker No 03/11/24 21:19 or ICD? When Was Last Pacemaker Check QUESTION #4 FULL TEXT: You/Your Family Experience fever (hyperthermia) with Anesthesia Last Oral Intake Last Oral intake: Last Oral Intake NPO since 00:01 03/11/24 21:19 Meds taken in AM with sips of Yes 03/08/24 05:45 water? Meds patient instructed to Tylenol, oxycodone 03/08/24 05:45 take am of surgery Any additional information?: Yes Meds patient instructed to take am of surgery: Patient was given Xanax this morning for anxiety attack. PONV PONV - automation technician: PONV - automation technician Female HX of Motion Sickness HX of N/V After Surgery Non-Smoker Duration of Surgery greater than 60 minutes Number of Risk Factors PONV Score Height & Weight Height & Weight: Anesthesia: Height & Weight Height 5 ft 3 in 03/08/24 13:15 Weight: 70 kg 03/12/24 05:53 Body Mass Index (BMI) 27.3 03/12/24 05:53 Respiratory Assessment Respiratory Assessment - automation technician: Respiratory Tract Infection Hx - automation technician Hx Respiratory Tract Infection No 03/11/24 21:22 STOP Sleep Apnea STOP Sleep Apnea - automation technician: STOP Sleep Apnea - automation technician Hx Hypertension Yes 03/08/24 15:10 Hx Sleep Apnea No 03/08/24 01:04 CPAP No 01/27/24 14:35 BIPAP No 01/27/24 14:35 Do you snore loudly (louder No 03/08/24 01:04 than talking or can be heard Do you often feel tired/ No 03/08/24 01:04 fatigued/ sleepy during daytime? Has anyone observed you stop No 03/08/24 01:04 breathing during sleep? STOP Results Negative 03/08/24 01:04 QUESTION #5 FULL TEXT : Do you snore loudly (louder than talking or can be heard through closed doors)? Tobacco Use History Tobacco Use History - automation technician: Tobacco Use History - automation technician Tobacco Use Smoking Status Never smoker 03/08/24 01:04 Hx Tobacco Use No 03/08/24 01:04 Years Smoking Packs Smoked per Day Smoking Cessation Date was within the last 15 years Hx Smoking Cessation Date Hx Smoking Cessation Counseling Hematologic Medial History Hematologic Hx - automation technician: Hematologic Medical Hx - datawarehouse developer Hx of Blood Transfusion No 03/08/24 01:04 Hx of Transfusion in last 3 No 03/08/24 01:04 Months Date of Last Transfusion (if within last 3 months) Ever experience any problems No 03/08/24 01:04 with transfusion(s)? Specify any problems Hx of Preganancy in last 3 No 03/08/24 01:04 Months Nurse Filling Out Transfusion MGROVE 03/08/24 01:04 & Questions: Date: 03/08/24 03/08/24 01:04 Time: 01:10 03/08/24 01:04 Patient unable to answer at this time (ie. confused, unrespo /Reproduction History /Reproductive History - automation technician: /Reproductive Hx- automation technician Hx Now No 03/11/24 21:22 Gestational Age (in weeks): EDC: Hx Hx Para Hx Section SAB No 03/11/24 21:22 Active Medications Active Medications: Current Medications Generic Name Dose Route Start Last Admin Trade Name Freq PRN Reason Stop Dose Admin Acetaminophen 650 mg 03/08/24 01:03 03/12/24 05:08 Acetaminophen 325 Mg Tablet PO 650 mg Q8H PRN PRN Administration Pain 1-5/10 Or Fever Atorvastatin Calcium 20 mg 03/08/24 22:00 03/11/24 19:32 Atorvastatin Calcium 20 Mg Tablet PO 20 mg QHS KAVYA Administration Clopidogrel Bisulfate 75 mg 03/08/24 12:00 03/12/24 09:31 Clopidogrel Bisulfate 75 Mg Tablet PO 75 mg DAILY KAVYA Administration Ferrous Sulfate 325 mg 03/08/24 12:00 03/11/24 11:50 Ferrous Sulfate 325 Mg Tablet PO 325 mg DAILY@1200 KAVYA Administration Fluticasone Propionate 2 spray 03/08/24 01:03 Fluticasone 0.05% 1 [place] Nasal.Sry NASAL DAILY PRN nasal congestion Furosemide 40 mg 03/08/24 10:00 03/11/24 09:09 Furosemide 40 Mg Tablet PO 40 mg DAILY KAVYA Administration Protocol Glucagon 1 mg 03/08/24 01:03 Glucagon 1 Mg/Ml Syringe IM X1 PRN HYPOGLYCEMIA Protocol Heparin Sodium (Porcine) 0 unit 03/09/24 11:30 03/10/24 18:19 Heparin Injection (Vial) 5,000 Unit/Ml Vial IV 3,000 unit UD PRN Administration dose adjustment Protocol Vancomycin IV-PHARMACY TO DOSE 500 mls @ 250 mls/hr 03/08/24 01:03 1 each/ Sodium Chloride IV PRN PRN Rx to Dose Protocol Piperacillin Sod/Tazobactam 50 mls @ 12.5 mls/hr 03/08/24 06:00 03/12/24 06:12 Sod 3.375 gm/ Sodium Chloride IV 12.5 mls/hr Q8 KAVYA Administration Dextrose 250 mls @ 0 mls/hr 03/08/24 01:03 Dextrose 10%-Water IV .Q0M PRN HYPOGLYCEMIA Protocol As Directed Sodium Chloride 500 mls @ 15 mls/hr 03/08/24 01:07 IV .[id number] PRN Saline Flush Sodium Chloride 500 mls @ 15 mls/hr 03/08/24 01:07 IV .[id number] PRN Additional IVPB Infusion Heparin Sodium/Dextrose 25,000 units in 250 mls @ 10 mls/hr 03/09/24 11:25 03/12/24 07:22 CONT INF 800 units/hr .Q25H KAVYA 8 mls/hr Titration Protocol As Directed Vancomycin HCl 1,500 mg/ 530 mls @ 250 mls/hr 03/10/24 01:30 03/12/24 04:56 Sodium Chloride IV Infused Q24H KAVYA Infusion Insulin Human Lispro 0 unit 03/11/24 07:00 03/12/24 06:12 Insulin Lispro 100 Unit/Ml Insuln.Pen SC Not Given 1HR_ACHS [facility] Protocol Losartan Potassium 50 mg 03/08/24 17:00 03/11/24 17:59 Losartan Potassium 50 Mg Tablet PO 50 mg DINNER [facility] Administration Protocol Magnesium Chloride 128 mg 03/08/24 10:00 03/11/24 09:09 Magnesium Chloride 64 Mg Delay Rel.Tablet PO 128 mg DAILY KAVYA Administration Magnesium Hydroxide 30 ml 03/08/24 01:03 Magnesium Hydroxide 30 Ml Udc PO DAILY PRN PRN Constipation Melatonin 3 mg 03/08/24 01:03 03/08/24 01:41 Melatonin 3 Mg Tablet PO 3 mg QHS PRN PRN Administration INSOMNIA Metoprolol Succinate 50 mg 03/08/24 10:00 03/11/24 09:08 Metoprolol(Xl)Succ 50 Mg Tablet PO 50 mg DAILY [facility] Administration Protocol Metoprolol Succinate 25 mg 03/10/24 14:55 03/11/24 17:58 Metoprolol(Xl)Succ 25 Mg Tablet PO 25 mg DINNER [facility] Administration Protocol Ondansetron HCl 4 mg 03/08/24 01:03 Ondansetron 4 Mg/2 Ml Vial IV Q8H PRN PRN NAUSEA/VOMITING Oxycodone HCl 10 mg 03/08/24 01:03 03/12/24 05:08 Oxycodone 5 Mg Tablet PO 10 mg Q4H PRN PRN Administration Pain Score 6-10/10 Senna/Docusate Sodium 2 tablet 03/08/24 10:00 03/11/24 09:09 Senna/Docusate Sodium 1 Tablet PO Not Given DAILY [facility] Sertraline HCl 25 mg 03/08/24 10:00 03/11/24 09:08 Sertraline 50 Mg Tablet PO 25 mg DAILY [facility] Administration Sodium Chloride 10 - 40 ml 03/08/24 01:07 03/11/24 19:33 0.9% Saline Lock 10 Ml Syringe IV 10 ml UD PRN Administration SALINE FLUSH Spironolactone 12.5 mg 03/08/24 10:00 03/11/24 09:08 Spironolactone 25 Mg Tablet PO 12.5 mg DAILY [facility] Administration Protocol Tolterodine Tartrate 2 mg 03/08/24 10:00 03/11/24 09:09 Tolterodine Tartrate 2 Mg Cap.Sa PO 2 mg DAILY [facility] Administration Vancomycin Protocol 1 lab 03/13/24 23:00 Vancomycin Trough/Random Due MC 03/14/24 03:00 DAILY [facility] Medical History Prolonged QT interval Elevated blood pressure reading without diagnosis of hypertension Dilated cardiomyopathy Factor V Leiden Anxiety Hypokalemia Acute hypoxemic respiratory failure CHF (congestive heart failure) Home Medications ?Medication ?Instructions ?Recorded ?Last Taken ?Type oxybutynin chloride 10 mg 10 mg PO DAILY bladder 09/23/23 01/27/24 History tablet,extended release 24 hr simvastatin 80 mg tablet 80 mg PO QHS cholesterol 09/23/23 01/26/24 History fluticasone propionate 50 2 spray intranasal DAILY PRN nasal 12/31/23 12/31/23 History mcg/actuation nasal congestion spray,suspension glimepiride 2 mg tablet 2 mg PO DAILY dm 12/31/23 Unknown History furosemide 40 mg tablet 40 mg PO BIDLX water pill 30 days 01/03/24 01/27/24 Rx #60 tabs losartan 50 mg tablet 50 mg PO DINNER blood pressure 30 01/03/24 01/21/24 Rx days #30 tabs metoprolol succinate 50 mg 50 mg PO DAILY heart rate 1 month 01/03/24 01/21/24 Rx tablet,extended release 24 hr #30 tabs spironolactone 25 mg tablet 12.5 mg (1/2 x 25 mg) PO DAILY 01/03/24 01/21/24 Rx water pill #30 tabs acetaminophen 500 mg tablet 1,000 mg (2 x 500 mg) PO Q8 pain 01/27/24 01/27/24 Rx #0 tabs ferrous sulfate 325 mg (65 mg 325 mg PO DAILY@1200 30 days #30 02/03/24 Unknown Rx iron) tablet (FeroSul) tabs magnesium chloride 64 mg 128 mg (2 x 64 mg) PO DAILY 30 02/03/24 Unknown Rx (magnesium chloride) days #60 tabs tablet,delayed release (Mag 64) oxycodone 5 mg tablet 10 mg (2 x 5 mg) PO Q4H PRN PRN 02/03/24 Unknown Rx Pain Score 4-10 7 days #84 tabs sennosides 8.6 mg-docusate sodium 2 tab PO DAILY 30 days #60 tabs 02/03/24 Unknown Rx 50 mg tablet (Stimulant Laxative Plus) tramadol 50 mg tablet 50 mg PO Q8H PRN PRN PAIN 1-3 7 02/03/24 Unknown Rx days #21 tabs cranberry fruit concentrate 1 tab PO DAILY 03/07/24 Unknown History sertraline 25 mg tablet 25 mg PO DAILY 03/07/24 Unknown History warfarin 2 mg tablet 4 mg PO DAILY 03/07/24 Unknown History tizanidine 4 mg tablet 4 mg PO QHS PRN PRN muscle spasm 03/09/24 Unknown History Allergy/AdvReac Type Severity Reaction Status Date / Time benazepril (From Lotensin) Allergy Mild DOESNT Verified 03/07/24 20:46 REMEMBER quinapril (From Accupril) Allergy Mild UNKNOWN Verified 03/07/24 20:46 Sulfa (Sulfonamide Allergy Mild Hives Verified 03/07/24 20:46 Antibiotics) verapamil (From Calan) Allergy Mild UNKNOWN Verified 03/07/24 20:46 Surgical History History of femoropopliteal bypass S/P carotid endarterectomy Social History Smoking Status: Never smoker Review of Systems (Anesthesia) ROS Narrative System reviewed and no additional complaints, except as documented. Physical Exam Resp Auscultation: clear to auscultation bilaterally
--- NOTE | 2024-03-12 12:22 | PCM.POST.ANE ---
Anesthesia: Postop Eval I Current Vital Signs Temperature: 97.5 F Pulse Rate: 82 Blood Pressure: 142/86 Respiratory Rate: 16 Pulse Ox: 97 Oxygen Delivery Method: Room Air Assessment Airway patent: Yes Spontaneous unlabored respirations: Yes Mental status: Awake and Calm nausea: No Vomiting: No Anesthesia Complication: No Fluid Hydration Crystalloid volume administer (ml): 350 Total IV fluid infused: 350 Progress Note Anesthesia document: Postop Eval 1 completed: Yes
[2024-03-12 12:37] LABS: ACT Activated Clotting Time 281 sec (74-137)
--- NOTE | 2024-03-12 12:56 | PCM.PN.SRG ---
Subjective Subjective Patient with increasing right lower leg pain. Has escalated significantly since arrival in PACU. 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 Objective Data Objective Data Awake, alert, distressed, writhing in pain IRR Resp non labored right calf tense, exquisitely TTP foot warm, digits pink Vital Signs: Vital Signs Temp Pulse Resp BP Pulse Ox O2 Del Method 97.5 F L 94 18 130/92 H 95 Room Air 03/12/24 12:25 03/12/24 12:35 03/12/24 12:35 03/12/24 12:35 03/12/24 12:35 03/12/24 12:35 Oxygen Delivery Method Room Air Weight: 154 lb 5.177 oz Body Mass Index (BMI) 27.3 Intake & Output: Intake and Output for Last 24 Hours 03/10/24 03/11/24 03/12/24 23:59 23:59 23:59 Intake Total 1559.22 / 1562.52 1322.89 / 1322.89 850.1 / 850.1 Output Total 2 / 2 Balance 1557.22 / 1560.52 1322.89 / 1322.89 850.1 / 850.1 Lab / Micro Data 03/12/24 06:16 03/12/24 06:16 Labs: Laboratory Results - last 24 hr 03/11/24 17:05: POC Glucose 122 H 03/11/24 19:32: POC Glucose 139 H 03/12/24 01:00: Vancomycin Trough 17.0 H 03/12/24 05:15: POC Glucose 144 H 03/12/24 06:16: WBC 5.4, RBC 3.97 L, Hgb 12.7, Hct 37.5, MCV 94.5, MCH 32.0, MCHC 33.9 D, RDW Std Deviation 53.3 H, RDW Coeff of Kate 15.5 H, Plt Count 269, MPV 9.4, Immature Gran % (Auto) 0.600, Neut % (Auto) 54.4, Lymph % (Auto) 33.9, [place] % (Auto) 8.3, Eos % (Auto) 1.9, Baso % (Auto) 0.9, Absolute Neuts (auto) 2.9, Absolute Lymphs (auto) 1.83, Nucleated RBC % 0.4, PT 14.3, INR 1.1, APTT 57.4 H, Sodium 138, Potassium 3.5, Chloride 108 H, Carbon Dioxide 19.0 L, Anion Gap 11, BUN 12, Creatinine 1.12 H, Estim Creat Clear Calc 35.09, Est GFR (MDRD) Af Amer 60, Est GFR (MDRD) Non-Af 49 L, BUN/Creatinine Ratio 10.7, Glucose 162 H, Calcium 9.5 03/12/24 12:28: Activated Clotting Time 281 H Micro: Microbiology 03/07/24 22:50 Blood Culture (Wb) - Anticubital Left Blood Culture - Preliminary No growth in 48 hours. Assessment & Plan Assessment/Plan (1) Hematoma of lower leg: PLAN: -compartment syndrome, likely due to PT perforation -to OR -repair artery vs ligate vs bypass to distal PT
--- NOTE | 2024-03-12 13:00 | PCM.OPRPT ---
Operative Report (Standard) Operative Information Surgery/Procedure Performed: aortogram, RLE runoff, unsuccessful attempt to cross PT Surgeon: Shaan Rojas Date of Procedure: 03/12/24 Procedure Start Time: 10:30 Procedure Stop Time: 12:10 Pre-Operative Diagnosis: right foot osteomyelitis Post-Operative Diagnosis: same Select all DRAINS/GRAFTS/IMPLANTS that apply: None Type of Anesthesia: Local and Sedation,Conscious Estimated Blood Loss: 5 Specimen collected: No Description of surgery: HPI: Patient is an 83-year-old female who previously presented with acute limb ischemia of the right lower extremity that was treated with a bypass from the superficial femoral artery to the below the knee popliteal artery due to failed endovascular efforts. Her subsequent follow-up duplex revealed slow velocities through the bypass with normal triphasic signal and AYAN that was still in the moderate category. She underwent a CT angiogram which revealed satisfactory proximal and distal anastomoses but what appeared to be significant tibial disease. Initial plans had been to follow with serial imaging and continue her anticoagulation however she has any interval presented with osteomyelitis of the digits of the right lower extremity is expected to need transmetatarsal amputation. With her diabetic status it is not expected that she has enough perfusion to heal her planned surgery so she is taken now for angiogram with an effort to improve her tibial outflow. Description of procedure: Upon obtaining informed consent and verification correct patient procedure site patient taken the Geography Department Chair where she was positioned prepped and draped in usual sterile fashion. Due to her significant anxiety anesthesia was asked to perform deeper sedation for the procedure. Skin overlying the left common femoral artery was anesthetized with 1% lidocaine and the vessel accessed under ultrasound guidance with micropuncture needle wire. This was exchanged for micropuncture sheath through which injection iliofemoral angiogram was performed revealing satisfactory position with no extravasation or dissection. Through the micropuncture sheath Bentson wire is advanced into the abdominal aorta and the micropuncture sheath exchanged for a short 5 [place] sheath. Omni Flush was advanced into the abdominal aorta and digital subtraction aortogram pelvic angiogram was performed. This revealed patent normal caliber abdominal aorta with mild diffuse calcification but no stenosis. Bilateral common iliac arteries are patent with scattered calcification but no significant stenosis. Right external iliac artery was widely patent with no significant atherosclerosis or stenosis. The Bentson wire and Omni Flush catheter was then navigated into the contralateral iliac artery and digital subtraction sequential imaging of the right lower extremity was performed. This revealed common femoral artery and its bifurcation be widely patent with no significant atherosclerosis or stenosis. The proximal superficial femoral artery was patent down to the bypass which originated in the mid superficial femoral artery. This anastomosis was widely patent with no stenosis. There was brisk contrast transit across the bypass into the below the knee popliteal artery which refluxed back to the distal thigh popliteal artery. The distal anastomosis was also widely patent with no significant atherosclerosis or stenosis. The tibio peroneal trunk was widely patent with mild atherosclerosis but no stenosis in the peroneal artery was the dominant runoff large-caliber vessel until the distal calf where it accumulated significant disease and terminated in multiple small collateral branches. These branches eventually reconstituted the posterior tibial artery and the distal calf as well as short segments of the anterior tibial artery all in discontinuity from each other. The posterior tibial artery terminating in the lateral plantar artery was the dominant vasculature of the foot. Through the Omni Flush catheter a glide advantage wire was advanced navigating into the superficial femoral artery and ultimately into the bypass graft. The Omni Flush catheter then withdrawn and the short 5 [place] sheath exchanged for a long 5 [place] 90 cm Rabie which was advanced and positioned in the distal bypass graft. Patient was then heparinized allowed circulate for 3 minutes. Through the 5 [place] sheath a command 18 wire and angled quick cross catheter were utilized to navigate into the [place] system. During wire and catheter advancement there was inadvertent advancement into the peroneal artery rather distal into the vessel. The wire and catheter then withdrawn back into the TP trunk and navigated into the posterior tibial artery and the occlusion engaged. We made some progress advancing through the occlusion however the wire trajectory did not follow the posterior tibial despite multiple repositioning and redirection efforts. The 018 wire was then exchanged for a command 14 wire in efforts to hopefully engage a different channel however this repeatedly went in the same trajectory. Subsequent repeat imaging revealed significant extravasation from the mid posterior tibial artery at the area where the wire trajectory diverted from the posterior tibial course. There was a fair bit of extravasation however given that we had not made any inroads to this point through the occlusion and no angioplasty was performed is felt that this likely would self resolve particular given the length of the total occlusion above this area. During imaging we recognize that there was stagnant flow through the peroneal artery where it had initially been brisk in nature. Withdrew our wire and catheter and redirected in the peroneal artery and took multiple images which revealed with what appeared to be dissection in the distal third of the calf roughly in the area where there was significant atherosclerotic burden on the original imaging. Appears if we had created dissection with an eversion wire advancement. We made multiple efforts to cross this area while maintaining position and true lumen however given that there was dissection of a significant plaque burden we were unsuccessful. There continued to be some contrast transit through the peroneal artery ultimately with filling into the collaterals in the anterior tibial and posterior tibial arteries so was felt that any aggressive efforts would probably result in further harm. Wire and catheter and engage the anterior tibial artery is occluded just beyond its origin has been large mature collaterals that precluded us engaging the occlusion and we made no significant progress. Our final imaging suggested that there was very minimal contrast transit into the posterior tibial artery and into its perforation so the hope was that this would indeed be self-limiting. The long 5 [place] sheath then exchanged for a short 5 [place] sheath and Mynx closure device deployed followed by 2 minutes of manual pressure with satisfactory stasis noted. The patient was then taken to the PACU with anticipated return to the medical floor. 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
--- NOTE | 2024-03-12 14:44 | POSTOPAN2_ITS ---
Anesthesia Postop Eval I Sum Postop Eval Completion status Anesthesia document: Postop Eval 1 completed: Yes Anesthesia Postop Eval I Summary Anesthesia Postop Eval I Summary: Anesthesia Postop Eval I: Assessment Summary Airway patent Yes 03/12/24 12:25 IT [email or web address] Spontaneous unlabored Yes 03/12/24 12:25 IT [email or web address] respirations Mental status Awake,Calm 03/12/24 12:25 IT [email or web address] nausea No 03/12/24 12:25 IT [email or web address] Vomiting No 03/12/24 12:25 IT [email or web address] Anesthesia Postop Eval I: Fluid Summary Crystalloid volume administer 350 03/12/24 12:25 IT [email or web address] (ml) Colloids volume administered ( ml) Blood Product volume administered (ml) Total IV fluid infused 350 03/12/24 12:25 IT [email or web address] Anesthesia Postop Eval I: Summary Notes Anesthesia Complication No 03/12/24 12:25 IT [email or web address] Anesthesia Complication Comment: Post-operative progress note Anesthesia: Postop Eval II Evaluation Mental status: Awake Pain Level: 8 (Patient complaining of calf pain. Dr Rjoas evaluating and feels it may be compartment syndrome. Planning for exploration.) nausea: No Vomiting: No Progress Note Post-operative progress note: Patient complaining of calf pain. Dr Rojas evaluating and feels it may be compartment syndrome. Planning for exploration. Complications Anesthesia Complication: No
--- NOTE | 2024-03-12 14:44 | PCM.POSTANE2 ---
Anesthesia Postop Eval I Sum Postop Eval Completion status Anesthesia document: Postop Eval 1 completed: Yes Anesthesia Postop Eval I Summary Anesthesia Postop Eval I Summary: Anesthesia Postop Eval I: Assessment Summary Airway patent Yes 03/12/24 12:25 [email or web address] Spontaneous unlabored Yes 03/12/24 12:25 [email or web address] respirations Mental status Awake,Calm 03/12/24 12:25 [email or web address] nausea No 03/12/24 12:25 [email or web address] Vomiting No 03/12/24 12:25 [email or web address] Anesthesia Postop Eval I: Fluid Summary Crystalloid volume administer 350 03/12/24 12:25 [email or web address] (ml) Colloids volume administered ( ml) Blood Product volume administered (ml) Total IV fluid infused 350 03/12/24 12:25 [email or web address] Anesthesia Postop Eval I: Summary Notes Anesthesia Complication No 03/12/24 12:25 [email or web address] Anesthesia Complication Comment: Post-operative progress note Anesthesia: Postop Eval II Evaluation Mental status: Awake Pain Level: 8 (Patient complaining of calf pain. Dr Rojas evaluating and feels it may be compartment syndrome. Planning for exploration.) nausea: No Vomiting: No Progress Note Post-operative progress note: Patient complaining of calf pain. Dr Rojas evaluating and feels it may be compartment syndrome. Planning for exploration. Complications Anesthesia Complication: No
--- NOTE | 2024-03-12 18:10 | OP.PCM_ITS ---
Operative Report (Standard) Operative Information Surgery/Procedure Performed: Exploration Right lower leg, evacuation hematoma Revision with jump graft from prior fem-pop to PT with reversed GSV 2 compartment fasciotomy Surgeon: Shaan Rojas Date of Procedure: 03/12/24 Procedure Start Time: 14:00 Procedure Stop Time: 18:00 Pre-Operative Diagnosis: right calf hematoma, compartment syndrome from perfora rodrigo PT threatened bypass with multiple tibial occlusions distal to prior fem-pop gangrene right foot digits Post-Operative Diagnosis: same Select all DRAINS/GRAFTS/IMPLANTS that apply: None Type of Anesthesia: General Estimated Blood Loss: 500 Specimen collected: No Description of surgery: HPI: Patient is an 83-year-old female who prior in the day had undergone attempted endovascular revascularization of the right lower extremity. The recovery room she had significant right calf pain and a tense posterior compartment which was suggestive of compartment syndrome likely from the posterior tibial perforation. She is taken now emergently for exploration to evacuate the hematoma and address the posterior tibial artery either with repair, ligation, or bypass. Description of procedure: Upon obtaining form consent and verification correct patient procedure site patient was taken to the operating room where she was placed under general anesthesia. She was then positioned prepped and draped in usual sterile fashion and timeout performed. Ultrasound was used to evaluate the great saphenous vein should be necessary to perform bypass and it was of adequate caliber from the saphenofemoral junction down to the knee. Longitudinal incision was then made along the medial aspect of the calf extending proximal and distal to her prior bypass incision. Both without cause any to dissect down to the level the fascia which was then incised significant streaking of hematoma within the musculature was identified. There was no significant large collection of blood however there was significant increased pressure within the musculature and blood streaking essentially from the proximal aspect of the soleus and gastrocnemius down to the just above the ankle. The soleus was taken down from his attachments of the posterior aspect the tibia and the posterior tibial artery exposed. This was then dissected free effectively the entire length of the calf and sidebranches ligated with silk ties and divided. No focal area of bleeding was encountered despite very thorough evaluation of the entire length of the vessel. The possibility that this was a perforation of a sidebranch was considered and that it had been ligated as part of the mobilization of the vessel. There was Doppler signal in the proximal aspect of the vessel which was beyond what had been patent on the angiogram but this transition is a total occlusion approximately 10 cm from the origin. Since we had effectively dissected the entirety of the vessel free including distal to the occlusion it was felt that bypass at this time was appropriate. 2 skip incision was then made on the medial aspect of the thigh to harvest the saphenous vein with sidebranches ligated with silk ties and divided. The distal aspect of the prior bypass graft was then dissected free and a right angle used to place a vessel loop proximal and distal. The posterior tibial artery just above the ankle was dissected free and a right angle used to place a vessel loop proximal and distal. The patient was then heparinized allowed circulate for 3 minutes. The saphenous vein was then harvested and oriented in reverse fashion and flushed heparinized saline. Sidebranches were enforced with Prolene as needed. The distal bypass graft then occluded with atraumatic clamps and longitudinal graftotomy created with 11 blade extended the James scissors. The vein was then oriented in reverse fashion and spatulated and beveled to match the arteriotomy. Anastomosis performed with a 6-0 Prolene running fashion. After completing the suture line clamps removed flushing into the bypa ss graft and satisfactory stasis was noted. There was brisk pulsatile flow across the graft. The posterior tibial artery was then occluded with Vesseloops and longitudinal arteriotomy created with 11 blade send the James scissors. The graft was then cut the length and beveled to match the arteriotomy and anastomosis performed using a 7-0 Prolene running fashion. Prior to completing suture line vessels were back flushed and after completing suture line clamps removed satisfactory stasis was noted. There is a palpable pulse in the bypass graft as well as into the posterior tibial artery beyond anastomosis. Doppler signal in the posterior tibial was satisfactory and there was some high resistance signal in the distal bypass graft likely due to caliber discrepancy. Heparin was then reversed with protamine the incision inspected for hemostasis. Vein harvest sites were closed with 3-0 Vicryl followed by 4 Monocryl and Dermabond for the skin. There is significant amount of ooze from all of the musculature of the calf given in part due to the redo operative feel would also need to mobilize and retract muscle bellies taken down from their attachments to the tibia. Hemoblast topical hemostatic was applied and manual pressure held for several minutes after which it appeared as if any significant bleeding had ceased. Incision was then closed with 2-0 Vicryl followed by ellen for the skin. The patient was then awakened from anesthesia taken the recovery room with anticipated mission to the intensive care unit for hemodynamic and neurologic monitoring. Surgical Findings: biphasic PT Type Casting Machine Operator roof promenade tile setter: Yes Coffee Maker Servicer: Sonja Bello Tasks completed by speech pathology assistant: Opening & closing, Harvesting grafts, Dissecting tissue and Retracting Additional librarian assistant?: Yes Additional Life Skills Teacher #2: Marimar Anderson Tasks completed by librarian assistant #2: Closing and Retracting Complications Complications: No
--- NOTE | 2024-03-12 18:46 | PCM.POST.ANE ---
Anesthesia: Postop Eval I Current Vital Signs Temperature: 97.4 F Pulse Rate: 122 Blood Pressure: 91/74 Respiratory Rate: 16 Pulse Ox: 94 Oxygen Delivery Method: Nasal Cannula Assessment Airway patent: Yes Spontaneous unlabored respirations: Yes Mental status: Awake and Calm nausea: No Vomiting: No Anesthesia Complication: No Fluid Hydration Crystalloid volume administer (ml): 1,500 Total IV fluid infused: 1,500 Progress Note Anesthesia document: Postop Eval 1 completed: Yes
--- NOTE | 2024-03-12 18:47 | POSTOPAN2_ITS ---
Anesthesia Postop Eval I Sum Postop Eval Completion status Anesthesia document: Postop Eval 1 completed: Yes Anesthesia Postop Eval I Summary Anesthesia Postop Eval I Summary: Anesthesia Postop Eval I: Assessment Summary Airway patent Yes 03/12/24 18:47 COTTONSEED MEAT [email or web address] Spontaneous unlabored Yes 03/12/24 18:47 COTTONSEED MEAT PRESSER.MDOT respirations Mental status Awake,Calm 03/12/24 18:47 COTTONSEED MEAT PRESSER.MDOT nausea No 03/12/24 18:47 COTTONSEED MEAT PRESSER.MDOT Vomiting No 03/12/24 18:47 COTTONSEED MEAT PRESSER.[email or web address] Anesthesia Postop Eval I: Fluid Summary Crystalloid volume administer 1,500 03/12/24 18:47 COTTONSEED MEAT PRESSER.MDOT (ml) Colloids volume administered ( ml) Blood Product volume administered (ml) Total IV fluid infused 1,500 03/12/24 18:47 COTTONSEED MEAT PRESSER.MDOT Anesthesia Postop Eval I: Summary Notes Anesthesia Complication No 03/12/24 18:47 COTTONSEED MEAT PRESSER.MDOT Anesthesia Complication Comment: Post-operative progress note Anesthesia: Postop Eval II Evaluation Mental status: Calm and Asleep Pain Level: 0 nausea: No Vomiting: No Complications Anesthesia Complication: No
--- NOTE | 2024-03-12 18:47 | PCM.POSTANE2 ---
Anesthesia Postop Eval I Sum Postop Eval Completion status Anesthesia document: Postop Eval 1 completed: Yes Anesthesia Postop Eval I Summary Anesthesia Postop Eval I Summary: Anesthesia Postop Eval I: Assessment Summary Airway patent Yes 03/12/24 18:47 INSTRUCTIONAL SERVICES SPECIALIST.[email or web address] Spontaneous unlabored Yes 03/12/24 18:47 INSTRUCTIONAL SERVICES SPECIALIST.MDOT respirations Mental status Awake,Calm 03/12/24 18:47 INSTRUCTIONAL SERVICES SPECIALIST.MDOT nausea No 03/12/24 18:47 INSTRUCTIONAL SERVICES SPECIALIST.MDOT Vomiting No 03/12/24 18:47 INSTRUCTIONAL SERVICES SPECIALIST.MDOT Anesthesia Postop Eval I: Fluid Summary Crystalloid volume administer 1,500 03/12/24 18:47 INSTRUCTIONAL SERVICES SPECIALIST.MDOT (ml) Colloids volume administered ( ml) Blood Product volume administered (ml) Total IV fluid infused 1,500 03/12/24 18:47 INSTRUCTIONAL SERVICES SPECIALIST.MDOT Anesthesia Postop Eval I: Summary Notes Anesthesia Complication No 03/12/24 18:47 INSTRUCTIONAL SERVICES SPECIALIST.MDOT Anesthesia Complication Comment: Post-operative progress note Anesthesia: Postop Eval II Evaluation Mental status: Calm and Asleep Pain Level: 0 nausea: No Vomiting: No Complications Anesthesia Complication: No
--- NOTE | 2024-03-12 19:04 | PN.HOSP_ITS ---
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 (03/08/24) Overweight (03/08/24) Dilated cardiomyopathy (03/08/24) Atherosclerosis of [place] arteries of extremities with gangrene, unspecified extremity (03/08/24) Peripheral vascular disease, unspecified (03/08/24) Gangrene, not elsewhere classified (03/08/24) Cellulitis of right toe (03/08/24) Primary osteoarthritis, unspecified site (03/08/24) Other acute osteomyelitis, right ankle and foot (03/08/24) Other malaise (03/08/24) Contusion of unspecified lower leg, initial encounter (03/08/24) Other specified postprocedural states (03/08/24) Subjective Subjective Patient was seen and examined in PACU today, she had a lengthy surgery today and underwent an evacuation of a hematoma and a bypass involving her previous femoropopliteal bypass. Patient had suffered some vascular bleeding when an attempt was made to open up an occluded artery. Patient appeared sleepy but responded to tactile and verbal stimuli in the PACU, her blood pressure was low with a systolic reading in the 80s and a MAP of 57, patient was receiving a third liter of fluids at the time of my examination. Her heart rate and rhythm was regular, she was not tachycardic and her lungs were clear. The PACU nurses were having a hard time drawing lab from a venous source and I asked them to just go ahead and use her radial artery to draw blood for the lab. Patient was typed and crossed for 2 units and these were on hold, I also talked with vascular surgery about her care and Dr. Rojas stated he would be here for a few hours and recheck her before he left for home. I talked at length with the night hospitalist (Dr. Rasmussen) and went over her medical course with him. Objective Data Objective Data Vital Signs: Vital Signs Temp Pulse Resp BP Pulse Ox O2 Del Method 97.4 F L 122 H 16 91/74 94 Nasal Cannula 03/12/24 18:47 03/12/24 18:47 03/12/24 18:47 03/12/24 18:47 03/12/24 18:47 03/12/24 18:47 Oxygen Delivery Method Nasal Cannula Weight: 70 kg Body Mass Index (BMI) 27.3 Intake & Output: Intake and Output for Last 24 Hours 03/10/24 03/11/24 03/12/24 23:59 23:59 23:59 Intake Total 1559.22 / 1562.52 1322.89 / 1322.89 859.06 / 859.06 Output Total 2 / 2 600 / 600 Balance 1557.22 / 1560.52 1322.89 / 1322.89 259.06 / 259.06 Lab / Micro Data 03/13/24 03:42 03/13/24 03:42 Labs: Laboratory Results - last 24 hr 03/11/24 19:32: POC Glucose 139 H 03/12/24 01:00: Vancomycin Trough 17.0 H 03/12/24 05:15: POC Glucose 144 H 03/12/24 06:16: WBC 5.4, RBC 3.97 L, Hgb 12.7, Hct 37.5, MCV 94.5, MCH 32.0, M CHC 33.9 D, RDW Std Deviation 53.3 H, RDW Coeff of Kate 15.5 H, Plt Count 269, MPV 9.4, Immature Gran % (Auto) 0.600, Neut % (Auto) 54.4, Lymph % (Auto) 33.9, [place] % (Auto) 8.3, Eos % (Auto) 1.9, Baso % (Auto) 0.9, Absolute Neuts (auto) 2.9, Absolute Lymphs (auto) 1.83, Nucleated RBC % 0.4, PT 14.3, INR 1.1, APTT 57.4 H, Sodium 138, Potassium 3.5, Chloride 108 H, Carbon Dioxide 19.0 L, Anion Gap 11, BUN 12, Creatinine 1.12 H, Estim Creat Clear Calc 35.09, Est GFR (MDRD) Af Amer 60, Est GFR (MDRD) Non-Af 49 L, BUN/Creatinine Ratio 10.7, Glucose 162 H , Calcium 9.5 03/12/24 12:28: Activated Clotting Time 281 H Micro: Microbiology 03/07/24 22:50 Blood Culture (Wb) - Anticubital Left Blood Culture - Preliminary No growth in 48 hours. Physical Exam Const alert, no apparent distress and healthy appearing Constitutional Narrative: Patient is alert but somnolent General Appearance: cooperative, well kempt and well developed Orientation / Consciousness: awake HEENT normocephalic, head/scalp atraumatic and moist oral mucous membranes Eyes PERRL, EOMs intact bilaterally and conjunctivae normal Neck supple, no JVD and thyroid normal General: trachea midline Resp normal respiratory effort, no retractions, no use of accessory muscles and clear to auscultation bilaterally Auscultation: Negative for rales, rhonchi or wheezes Cardio S1 normal heart sound, S2 normal heart sound, no murmurs, no rub and no gallops Cardio Narrative: Heart rate and rhythm is irregular GI normal to inspection, nondistended, normoactive bowel sounds, soft to palpation, non-tender and non-distended Extremity Extremity Narrative: Right leg is wrapped in surgical dressing from the upper thigh area down to the right ankle area, there is evidence of dry gangrene on dorsal areas of the right foot on several toes and on the dorsum of the foot Neuro CN's II-XII intact bilaterally, moves all extremities, no focal motor deficits and no sensory deficits noted Sensorium / Orientation: awake Speech: speech normal Psych affect normal Assessment & Plan Assessment/Plan (1) 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 Dry gangrene of the right foot secondary to peripheral vascular disease- patient will be placed in the ICU overnight for care, repeat blood count was ordered, vascular surgery and podiatry are participating in her care #2 peripheral vascular disease-status post bypass right leg-patient appears to be doing well postop but is a little bit hypotensive #3 factor V deficiency-patient will not be placed back on anticoagulation until tomorrow #4 type 2 diabetes-patient's blood sugars will be monitored, sliding scale insulin will be administered as needed #5 essential hypertension-patient will remain on her present medications #6 hyperlipidemia-patient is on simvastatin #7 chronic atrial fibrillation-patient is on rate control medications and normally on anticoagulation Total clinical time spent by myself addressing the patient's medical issues, reviewing all her data, and collaborating with patient's care team: 35 minutes Charges/Coding Visit Charges Inpatient E&M: 87057 Subs Hosp L2
[2024-03-12 19:28] LABS: Absolute Lymphocyte Count 3.19 X10^3/uL (0.83-4.51); Absolute Neutrophil Count 11.4 X10^3/uL (2.0-7.7); Basophil# 0.07 X10^3/uL; Basophil% 0.5 % (0-1); Eosinophil# 0.05 X10^3/uL; Eosinophils% 0.3 % (0-5); Hematocrit 29.4 % (37-47); Hemoglobin 9.4 g/dL (12.0-15.0); Lymphocyte # 3.19 X10^3/ul (0.83-4.51); Lymphocyte % 20.9 % (19-41); Mean Corpuscular Hgb 31.8 pg (27.0-32.0); Mean Corpuscular Volume 99.3 fL (81-99); Mean Platelet Vol. 9.7 fl (6.2-12.0); Monocyte# 0.38 X10^3/uL; Monocyte% 2.5 % (0-10); NRBC Flagged by Analyzer 0.1 % (0-5); Neutrophil % 74.9 % (47-70); Platelet Count 288 K/mm3 (150-450); RBC Distribution Width CV 15.9 % (11.6-14.6); RBC Distribution Width SD 58.4 fl (35.1-43.9); Red Blood Count 2.96 M/mm3 (4.2-5.4); White Blood Count 15.2 K/mm3 (4.4-11.0)
[2024-03-12 19:45] LABS: Bedside Glucose 197 mg/dL (74-106)
[2024-03-12] MEDS: Atorvastatin Calcium 20 MG Tablet PO (20:58)
[2024-03-12] MEDS: Lactobacillis Acidophilus 1 CAP PO (20:58)
[2024-03-12] MEDS: Insulin Lispro 100 UNIT/ML INSULN.PEN SC (21:15)
[2024-03-12] MEDS: Norepinephrine 8 MG in 0.9% Normal Saline (250mL Bag) 242 ML 9.4 MG CONT INF (21:15)
[2024-03-12 21:38] LABS: Bedside Glucose 224 mg/dL (74-106)
[2024-03-13] VITALS (30 sets, daily range): BP systolic 87–132; BP diastolic 48–88; PULSE 82–160; RESP 12–19; TEMP 36.2–36.8; O2SAT 96–100; BMI 25.1
[2024-03-13] MEDS: Vancomycin HCl 1,500 MG in 0.9% Normal Saline (500mL Bag) 500 ML 200 MG IV (02:23)
[2024-03-13 03:49] LABS: Absolute Neutrophil Count 10.8 X10^3/uL (2.0-7.7); Basophil# 0.02 X10^3/uL; Basophil% 0.2 % (0-1); Hematocrit 29.8 % (37-47); Hemoglobin 9.8 g/dL (12.0-15.0); Lymphocyte % 9.4 % (19-41); Mean Corp Hgb Conc 32.9 g/dL (32-36); Mean Corpuscular Volume 94.3 fL (81-99); Mean Platelet Vol. 9.5 fl (6.2-12.0); Monocyte# 0.67 X10^3/uL; Monocyte% 5.3 % (0-10); NRBC Flagged by Analyzer 0.2 % (0-5); Neutrophil # 10.77 X10^3/uL (2.7-7.7); Neutrophil % 84.4 % (47-70); Platelet Count 231 K/mm3 (150-450); RBC Distribution Width CV 17.8 % (11.6-14.6); Red Blood Count 3.16 M/mm3 (4.2-5.4); White Blood Count 12.8 K/mm3 (4.4-11.0)
[2024-03-13 04:01] LABS: International Normalized Ratio 1.2; Prothrombin Time (Protime)PT. 15.2 SECONDS (11.7-14.9)
[2024-03-13 04:02] LABS: Anion Gap 10 (5-15); BUN 19 mg/dL (7-18); Calcium,Total 8.9 mg/dL (8.5-10.1); Chloride 112 mmol/L (98-107); Creatinine, Serum 1.36 mg/dL (0.55-1.02); EST Glomerular Filtration Rate 39 mL/min (>60); Est Glom Filt Rate - Afr Amer 48 mL/min (>60); Estimated Creatinine Clearance 28.89 ml/min; Glucose 186 mg/dL (74-106); Potassium 3.8 mmol/L (3.5-5.1); Sodium Level 141 mmol/L (136-145)
[2024-03-13] MEDS: 0.9% Saline Lock 10 ML Syringe IV (05:31)
[2024-03-13] MEDS: Piperacil/Tazobactam 3.375 GM in 0.9% Normal Saline (50mL MB+) 50 ML IV ×3 (05:31→21:48)
--- NOTE | 2024-03-13 07:03 | EKG12_ITS ---
Test Reason : AF Blood Pressure : */* mmHG Vent. Rate : 138 BPM Atrial Rate : * BPM P-R Int : * ms QRS Dur : 78 ms QT Int : 320 ms P-R-T Axes : * -47 180 degrees QTcB Int : 484 ms Atrial fibrillation with rapid ventricular response Left axis deviation Anterior infarct (cited on or before 23-Sep-2023) ST & T wave abnormality, consider lateral ischemia Abnormal ECG When compared with ECG of 08-Mar-2024 07:52, Vent. rate has increased by 64 bpm Confirmed by STEPHANIE ERICKSON, REI ([id number]), movie editor ARELY SHORT ([id number]) on 03/14/2024 2:15:24 PM Referred By: Confirmed By: REI BROWN MD
--- NOTE | 2024-03-13 08:40 | PCM.PN.SRG ---
Subjective Subjective I saw Eri this morning resting in bed. At rest, she denies any pain in her right lower extremity. With movement, she has expected pain/tenderness at the incision sites. No bleeding was noted through her dressings and Adrian wrap overnight. She received 1 unit PRBC overnight. Her hemoglobin is stable at 9.8 this morning. She remains off of anticoagulation this morning. She required Levophed overnight but it was turned off around 4 AM. Her blood pressures are improved this morning. Her heart rate has been elevated consistent with her chronic A-fib and due to her low pressures her metoprolol was held. Objective Data Objective Data Vital Signs: Vital Signs Temp Pulse Resp BP Pulse Ox O2 Del Method O2 Flow Rate 97.8 F 123 H 12 112/64 99 Nasal Cannula 2 03/13/24 04:00 03/13/24 07:00 03/13/24 07:00 03/13/24 07:00 03/13/24 07:00 03/13/24 07:00 03/13/24 07:00 Oxygen Flow Rate (L/min) 2 Oxygen Delivery Method Nasal Cannula Weight: 141 lb 15.643 oz Body Mass Index (BMI) 25.1 Intake & Output: Intake and Output for Last 24 Hours 03/11/24 03/12/24 03/13/24 23:59 23:59 23:59 Intake Total 1322.89 / 1322.89 2905.51 / 2914.91 1127.0 / 1127.0 Output Total 600 / 600 175 / 175 Balance 1322.89 / 1322.89 2305.51 / 2314.91 952.0 / 952.0 Lab / Micro Data 03/13/24 03:42 03/13/24 03:42 Labs: Laboratory Results - last 24 hr 03/12/24 12:28: Activated Clotting Time 281 H 03/12/24 18:08: WBC 15.2 H, RBC 2.96 L, Hgb 9.4 L, Hct 29.4 L, MCV 99.3 H D, MCH 31.8, MCHC 32.0 D, RDW Std Deviation 58.4 H, RDW Coeff of Kate 15.9 H, Plt Count 288, MPV 9.7, Immature Gran % (Auto) 0.900, Neut % (Auto) 74.9 H, Lymph % (Auto) 20.9, [place] % (Auto) 2.5, Eos % (Auto) 0.3, Baso % (Auto) 0.5, Absolute Neuts (auto) 11.4 H, Absolute Lymphs (auto) 3.19, Nucleated RBC % 0.1 03/12/24 19:27: POC Glucose 197 H 03/12/24 20:51: Blood Type A POSITIVE, Antibody Screen NEGATIVE, Crossmatch See Detail 03/12/24 21:03: POC Glucose 224 H 03/13/24 03:42: WBC 12.8 H, RBC 3.16 L, Hgb 9.8 L, Hct 29.8 L, MCV 94.3 D, MCH 31.0, MCHC 32.9, RDW Std Deviation 61.0 H, RDW Coeff of Kate 17.8 H, Plt Count 231, MPV 9.5, Immature Gran % (Auto) 0.700, Neut % (Auto) 84.4 H, Lymph % (Auto) 9.4 L, [place] % (Auto) 5.3, Eos % (Auto) 0.0, Baso % (Auto) 0.2, Absolute Neuts (auto) 10.8 H, Absolute Lymphs (auto) 1.20, Nucleated RBC % 0.2, PT 15.2 H, INR 1.2, Sodium 141, Potassium 3.8, Chloride 112 H, Carbon Dioxide 19.0 L, Anion Gap 10, BUN 19 H, Creatinine 1.36 H, Estim Creat Clear Calc 28.89, Est GFR (MDRD) Af Amer 48 L, Est GFR (MDRD) Non-Af 39 L, BUN/Creatinine Ratio 14.0, Glucose 186 H, Calcium 8.9 Micro: Microbiology 03/07/24 22:50 Blood Culture (Wb) - Anticubital Left Blood Culture - Final No growth in 5 days. Radiography Diagnostic Testing: Radiology Impression Duplex Scan Lower Extremity Artery 03/08/24 16:28 Interpretation Summary Patent right femoral-popliteal bypass graft with diminished velocities and maintained waveforms throughout. Ordering Physician: Laura Crowell Referring Physician: Kendra Lucio M.D. Performed By: Lacey Samayoa RVT Physical Exam Const alert, oriented x3 and no apparent distress General Appearance: cooperative HEENT normocephalic, hearing grossly normal bilaterally, external ears normal and external nose normal Eyes EOMs intact bilaterally General Eye: normal appearance of both eyes Neck General: normal visual inspection and trachea midline Resp normal respiratory effort, normal air movement, no retractions and no use of accessory muscles Effort and Inspection: able to speak in complete sentences Cardio Rate: tachycardic Extremity Extremity Narrative: + PT Doppler signal, femoropopliteal bypass Doppler signal Right toes with stable dry eschar. Minimal right lower extremity edema. Right medial thigh incision sites with Steri-Strips overlying, no dehiscence, skin edges viable, minimal serosanguineous drainage at the proximal incision. 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 She is overall doing well this morning, pain is well-controlled. Vascular exam is stable with good PT Doppler signal. Postop dressings were taken down and all incision sites are satisfactory in appearance. Dry dressings were replaced with wound care nurse Shellie, plan to continue with dry dressings changed daily or more often as needed to manage drainage. Her blood pressures are improved, off Levophed. Metoprolol has been restarted to help manage her heart rate. Will restart heparin at continuous low-dose infusion 500 units/h for now and monitor for adverse bleeding. Okay to advance diet as tolerated. Podiatry is planning intervention potentially tomorrow.
[2024-03-13 08:45] LABS: Bedside Glucose 155 mg/dL (74-106)
[2024-03-13] MEDS: Clopidogrel Bisulfate 75 MG Tablet PO (09:10)
[2024-03-13] MEDS: Metoprolol(XL)Succ 50 MG Tablet PO ×2 (09:11→15:05)
--- NOTE | 2024-03-13 09:26 | PN.HOSP_ITS ---
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 (03/08/24) Overweight (03/08/24) Dilated cardiomyopathy (03/08/24) Atherosclerosis of [place] arteries of extremities with gangrene, unspecified extremity (03/08/24) Peripheral vascular disease, unspecified (03/08/24) Gangrene, not elsewhere classified (03/08/24) Cellulitis of right toe (03/08/24) Primary osteoarthritis, unspecified site (03/08/24) Other acute osteomyelitis, right ankle and foot (03/08/24) Other malaise (03/08/24) Contusion of unspecified lower leg, initial encounter (03/08/24) Other specified postprocedural states (03/08/24) Subjective Subjective Patient was seen and examined today, she is alert and in no distress, the vascular surgery nurse practitioner was in seeing the patient and changing her dressing on her right leg. Patient's hemoglobin this morning was 9.8, white blood cell count was 12.8, creatinine was 1.36 and BUN was 19. Glucose was 186. Objective Data Objective Data Vital Signs: Vital Signs Temp Pulse Resp BP Pulse Ox O2 Del Method O2 Flow Rate 97.8 F 123 H 14 125/83 H 100 Room Air 2 03/13/24 08:00 03/13/24 09:11 03/13/24 08:00 03/13/24 09:11 03/13/24 08:00 03/13/24 08:00 03/13/24 08:00 Oxygen Flow Rate (L/min) 2 Oxygen Delivery Method Room Air Weight: 64.4 kg Body Mass Index (BMI) 25.1 Intake & Output: Intake and Output for Last 24 Hours 03/11/24 03/12/24 03/13/24 23:59 23:59 23:59 Intake Total 1322.89 / 1322.89 2905.51 / 2914.91 1127.0 / 1127.0 Output Total 600 / 600 175 / 175 Balance 1322.89 / 1322.89 2305.51 / 2314.91 952.0 / 952.0 Lab / Micro Data 03/13/24 03:42 03/13/24 03:42 Labs: Laboratory Results - last 24 hr 03/12/24 12:28: Activated Clotting Time 281 H 03/12/24 18:08: WBC 15.2 H, RBC 2.96 L, Hgb 9.4 L, Hct 29.4 L, MCV 99.3 H D, MCH 31.8, MCHC 32.0 D, RDW Std Deviation 58.4 H, RDW Coeff of Kate 15.9 H, Plt Count 288, MPV 9.7, Immature Gran % (Auto) 0.900, Neut % (Auto) 74.9 H, Lymph % (Auto) 20.9, [place] % (Auto) 2.5, Eos % (Auto) 0.3, Baso % (Auto) 0.5, Absolute Neuts (auto) 11.4 H, Absolute Lymphs (auto) 3.19, Nucleated RBC % 0.1 03/12/24 19:27: POC Glucose 197 H 03/12/24 20:51: Blood Type A POSITIVE, Antibody Screen NEGATIVE, Crossmatch See Detail 03/12/24 21:03: POC Glucose 224 H 03/13/24 03:42: WBC 12.8 H, RBC 3.16 L, Hgb 9.8 L, Hct 29.8 L, MCV 94.3 D, MCH 31.0, MCHC 32.9, RDW Std Deviation 61.0 H, RDW Coeff of Kate 17.8 H, Plt Count 231, MPV 9.5, Immature Gran % (Auto) 0.700, Neut % (Auto) 84.4 H, Lymph % (Auto) 9.4 L, [place] % (Auto) 5.3, Eos % (Auto) 0.0, Baso % (Auto) 0.2, Absolute Neuts (auto) 10.8 H, Absolute Lymphs (auto) 1.20, Nucleated RBC % 0.2, PT 15.2 H, INR 1.2, Sodium 141, Potassium 3.8, Chloride 112 H, Carbon Dioxide 19.0 L, Anion Gap 10, BUN 19 H, Creatinine 1.36 H, Estim Creat Clear Calc 28.89, Est GFR (MDRD) Af Amer 48 L, Est GFR (MDRD) Non-Af 39 L, BUN/Creatinine Ratio 14.0, Glucose 186 H, Calcium 8.9 03/13/24 07:35: POC Glucose 155 H Micro: Microbiology 03/07/24 22:50 Blood Culture (Wb) - Anticubital Left Blood Culture - Final No growth in 5 days. Radiography Diagnostic Testing: Radiology Impression Duplex Scan Lower Extremity Artery 03/08/24 16:28 Interpretation Summary Patent right femoral-popliteal bypass graft with diminished velocities and maintained waveforms throughout. Ordering Physician: Laura Crowell Referring Physician: Kendra Lucio M.D. Performed By: Lacey Samayoa RVT Physical Exam Narrative alert, oriented x 3, no apparent distress and healthy appearing Constitutional Narrative: Patient is alert General Appearance: cooperative, well kempt and well developed Orientation / Consciousness: awake HEENT normocephalic, head/scalp atraumatic and moist oral mucous membranes Eyes PERRL, EOMs intact bilaterally and conjunctivae normal Neck supple, no JVD and thyroid normal General: trachea midline Resp normal respiratory effort, no retractions, no use of accessory muscles and clear to auscultation bilaterally Auscultation: Negative for rales, rhonchi or wheezes Cardio S1 normal heart sound, S2 normal heart sound, no murmurs, no rub and no gallops Cardio Narrative: Heart rate and rhythm is irregular GI normal to inspection, nondistended, normoactive bowel sounds, soft to palpation, non-tender and non-distended Extremity Extremity Narrative: Right leg is wrapped in surgical dressing from the upper thigh area down to the right ankle area, there is evidence of dry gangrene on dorsal areas of the right foot on several toes and on the dorsum of the foot Neuro CN's II-XII intact bilaterally, moves all extremities, no focal motor deficits and no sensory deficits noted, patient is alert and oriented x 3 Sensorium / Orientation: awake Speech: speech normal Psych affect normal Assessment & Plan Assessment/Plan (1) 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 Dry gangrene of the right foot secondary to peripheral vascular disease- patient appears medically stable at this time, I suspect podiatry will want to debride the patient's right foot, this will probably occur tomorrow. #2 peripheral vascular disease-status post bypass right leg-patient appears to be doing well postop #3 factor V deficiency-I will defer starting the patient's heparin drip to vascular surgery, they may decide to restart it today #4 type 2 diabetes-patient's blood sugars will be monitored, sliding scale insulin will be administered as needed #5 essential hypertension-patient will remain on her present medications #6 hyperlipidemia-patient is on simvastatin #7 chronic atrial fibrillation-patient is on rate control medications and normally on anticoagulation #8 acute blood loss anemia from hematoma of the right leg requiring blood transfusion-patient's hemoglobin appears to be stable today Total clinical time spent by myself addressing the patient's medical issues, reviewing all her data, and collaborating with patient's care team: 35 minutes Charges/Coding Visit Charges Inpatient E&M: 32104 Subs Hosp L2
[2024-03-13] MEDS: HEPARIN/D5w 25,000 UNITS 25,000 UNITS/250 ML IV.SOLN. 5 UNITS CONT INF (09:51)
--- NOTE | 2024-03-13 09:52 | WOUNDNOTE ---
wound photo: right medial lower leg
[2024-03-13] MEDS: Furosemide 40 MG Tablet PO (09:53)
[2024-03-13] MEDS: Magnesium Chloride 64 MG Delay Rel.Tablet 128 MG PO (09:53)
[2024-03-13] MEDS: Spironolactone 25 MG Tablet 12.5 MG PO (09:53)
[2024-03-13] MEDS: Lactobacillis Acidophilus 1 CAP PO ×4 (09:53→21:48)
--- NOTE | 2024-03-13 09:53 | WOUNDNOTE ---
wound photo: right foot
[2024-03-13] MEDS: Sertraline 50 MG Tablet 25 MG PO (09:54)
[2024-03-13] MEDS: Acetaminophen 325 MG Tablet 650 MG PO ×2 (09:55→17:29)
[2024-03-13 09:59] LABS: Partial Thromboplast Time 26.9 Seconds (24.1-36.2)
--- NOTE | 2024-03-13 10:27 | PCM.PN.ID ---
Physical Exam Narrative Leg still some numbness s/p OR yesterday. No fever, no n/v/d Const alert and no apparent distress General Appearance: cooperative Resp normal air movement and clear to auscultation bilaterally Cardio regular rate and regular rhythm GI soft to palpation, non-tender and non-distended Skin no rashes or lesions noted Skin Narrative: RLE wrapped ID ID: Route of nutrition/ use of supplements: [] Nutritional Intake: [] IV Site: [] [place] Catheter: [] Assessment & Plan Assessment/Plan (1) Diabetic wet gangrene of the foot: PLAN: Cxs ngtd. TNA planned for this week. Cont [email or web address]. Will follow
[2024-03-13] MEDS: Tolterodine Tartrate 2 MG CAP.SA PO (11:02)
[2024-03-13] MEDS: oxyCODONE 5 MG Tablet 10 MG PO ×2 (11:09→17:29)
[2024-03-13] MEDS: Insulin Lispro 100 UNIT/ML INSULN.PEN SC ×2 (11:48→16:41)
[2024-03-13] MEDS: Ferrous Sulfate 325 MG Tablet PO (11:48)
[2024-03-13 12:11] LABS: Bedside Glucose 179 mg/dL (74-106)
--- NOTE | 2024-03-13 12:52 | CHAPLAIN ---
Type of Pastoral Visit ___ Initial Visit _x__ Follow-up Visit ___ On-call Visit ___ General Patient Visit ___ Spiritual Assessment ___ Family Conference ___ Bereavement ___ Rapid Response ___ Code Blue ___ Other (describe below) Pastoral Care Referral From _x__ Patient ___ Family ___ Nurse ___ Physician ___ Hot Roller ___ Relations Specialist ___ Other (describe below) Sacrament/Intervention _x__ Active listening ___ Anointing ___ Gnosticism ___ Bereavement ___ Communion _x__ Emmy exploration ___ ___ Life review _x__ Prayer ___ Reconciliation ___ Sacrament of Sick _x__ Supportive presence ___ Wedding ___ Other (describe below) Pastoral Comments patient follow up after surgery yesterday; pt and spouse are in the room; spouse is detached but answers questions politely and with simple answers; pt is much more emotional and tearful but thankful that the surgery went better than it might have been and that we are waiting to know more about how much will be needed in the second surgery; pt expresses her emmy which is affirmed again; pt is given time to talk, express her feelings, and to receive prayer; pt speaks of deep thankfulness for the support and prayers
--- NOTE | 2024-03-13 14:20 | PCM.PROGNOTE ---
Subjective Subjective Patient was seen today for follow up on her right foot. She had further vascular intervention yesterday. She is resting in bed, pain appears well controlled at this time. No c/o f/c/n/v. Objective Data Objective Data Vital Signs: Vital Signs Temp Pulse Resp BP Pulse Ox O2 Del Method O2 Flow Rate 97.7 F L 122 H 16 105/67 98 Room Air 2 03/13/24 13:51 03/13/24 13:51 03/13/24 13:51 03/13/24 13:51 03/13/24 13:51 03/13/24 13:51 03/13/24 08:00 Oxygen Flow Rate (L/min) 2 Oxygen Delivery Method Room Air Weight: 64.4 kg Body Mass Index (BMI) 25.1 Intake & Output: Intake and Output for Last 24 Hours 03/11/24 03/12/24 03/13/24 23:59 23:59 23:59 Intake Total 1322.89 / 1322.89 2905.51 / 2914.91 1657.0 / 1657.0 Output Total 600 / 600 275 / 275 Balance 1322.89 / 1322.89 2305.51 / 2314.91 1382.0 / 1382.0 Lab / Micro Data 03/13/24 16:01 03/13/24 03:42 Labs: Laboratory Results - last 24 hr 03/12/24 18:08: WBC 15.2 H, RBC 2.96 L, Hgb 9.4 L, Hct 29.4 L, MCV 99.3 H D, MCH 31.8, MCHC 32.0 D, RDW Std Deviation 58.4 H, RDW Coeff of Kate 15.9 H, Plt Count 288, MPV 9.7, Immature Gran % (Auto) 0.900, Neut % (Auto) 74.9 H, Lymph % (Auto) 20.9, [place] % (Auto) 2.5, Eos % (Auto) 0.3, Baso % (Auto) 0.5, Absolute Neuts (auto) 11.4 H, Absolute Lymphs (auto) 3.19, Nucleated RBC % 0.1 03/12/24 19:27: POC Glucose 197 H 03/12/24 20:51: Blood Type A POSITIVE, Antibody Screen NEGATIVE, Crossmatch See Detail 03/12/24 21:03: POC Glucose 224 H 03/13/24 03:42: WBC 12.8 H, RBC 3.16 L, Hgb 9.8 L, Hct 29.8 L, MCV 94.3 D, MCH 31.0, MCHC 32.9, RDW Std Deviation 61.0 H, RDW Coeff of Kate 17.8 H, Plt Count 231, MPV 9.5, Immature Gran % (Auto) 0.700, Neut % (Auto) 84.4 H, Lymph % (Auto) 9.4 L, [place] % (Auto) 5.3, Eos % (Auto) 0.0, Baso % (Auto) 0.2, Absolute Neuts (auto) 10.8 H, Absolute Lymphs (auto) 1.20, Nucleated RBC % 0.2, PT 15.2 H, INR 1.2, Sodium 141, Potassium 3.8, Chloride 112 H, Carbon Dioxide 19.0 L, Anion Gap 10, BUN 19 H, Creatinine 1.36 H, Estim Creat Clear Calc 28.89, Est GFR (MDRD) Af Amer 48 L, Est GFR (MDRD) Non-Af 39 L, BUN/Creatinine Ratio 14.0, Glucose 186 H, Calcium 8.9 03/13/24 07:35: POC Glucose 155 H 03/13/24 09:40: APTT 26.9 03/13/24 11:46: POC Glucose 179 H Micro: Microbiology 03/07/24 22:50 Blood Culture (Wb) - Anticubital Left Blood Culture - Final No growth in 5 days. Radiography Diagnostic Testing: Radiology Impression Duplex Scan Lower Extremity Artery 03/08/24 16:28 Interpretation Summary Patent right femoral-popliteal bypass graft with diminished velocities and maintained waveforms throughout. Ordering Physician: Laura Crowell Referring Physician: Kendra Lucio M.D. Performed By: Lacey Samayoa RVT Physical Exam Const alert, oriented x3 and no apparent distress Assessment & Plan Assessment/Plan (1) Black toe: (2) Acute osteomyelitis of right foot: PLAN: Plan Evaluation performed. Reviewed diagnostic data. Left foot xray with possible osteomyelitis 1st toe proximal phalanx - ordered MRI right foot for further evaluation - reviewed, no evidence of osteomyelitis. She remains of IV antibiotics. Plans for TMA on afternoon. Will continue to follow.
[2024-03-13] MEDS: HYDROmorphone 0.5 MG/0.5 ML SYRINGE IV (14:27)
[2024-03-13 16:12] LABS: Hemoglobin 7.5 g/dL (12.0-15.0)
[2024-03-13 16:26] LABS: Partial Thromboplast Time 39.8 Seconds (24.1-36.2)
--- NOTE | 2024-03-13 16:44 | PCM.HOSP.N ---
Hospitalist Note Patient's hemoglobin this afternoon dropped to 7.5, I did not receive word from nursing that she had any active bleeding however, I talked with Dr. Rojas about the results and he suggested stopping the heparin until tomorrow and transfusing 2 units of packed red blood cells. I will repeat the patient's CBC in the morning
[2024-03-13 17:24] LABS: Bedside Glucose 189 mg/dL (74-106)
[2024-03-13] MEDS: Metoprolol(XL)Succ 25 MG Tablet PO (17:28)
[2024-03-13] MEDS: Losartan Potassium 50 MG Tablet PO (17:29)
[2024-03-13] MEDS: Atorvastatin Calcium 20 MG Tablet PO (21:50)
[2024-03-14] VITALS (8 sets, daily range): BP systolic 97–124; BP diastolic 52–74; PULSE 71–96; RESP 12–16; TEMP 36–36.8; O2SAT 96–98; BMI 25.2
[2024-03-14 01:55] LABS: Vancomycin, Trough Level 23.6 ug/mL (5.0-15.0)
[2024-03-14 02:10] LABS: Bedside Glucose 139 mg/dL (74-106)
--- NOTE | 2024-03-14 02:52 | PCM.RX.CS ---
Consult Antibiotic Management Pharmacy has been consulted to manage selected antibiotic: Vancomycin Type of Intervention Type of Consult: Follow-up Suspected Infection Suspected Infection: Osteomyelitis Labs Labs: Sodium 141 mmol/L (136-145) 03/13/24 03:42 Potassium 3.8 mmol/L (3.5-5.1) 03/13/24 03:42 Chloride 112 mmol/L (98-107) H 03/13/24 03:42 Carbon Dioxide 19.0 mmol/L (21.0-32.0) L 03/13/24 03:42 Anion Gap 10 (5-15) 03/13/24 03:42 BUN 19 mg/dL (7-18) H 03/13/24 03:42 Creatinine 1.36 mg/dL (0.55-1.02) H 03/13/24 03:42 Est GFR (MDRD) Af Amer 48 mL/min (>60) L 03/13/24 03:42 Est GFR (MDRD) Non-Af 39 mL/min (>60) L 03/13/24 03:42 BUN/Creatinine Ratio 14.0 RATIO (10-20) 03/13/24 03:42 Glucose 186 mg/dL (74-106) H 03/13/24 03:42 Vancomycin Trough 23.6 ug/mL (5.0-15.0) H 03/14/24 01:10 Microbiology Microbiology: Microbiology 03/07/24 22:50 Blood Culture (Wb) - Anticubital Left Blood Culture - Final No growth in 5 days. Dosing Weight Weight used for dosin.4 kg Estimated Creatinine Clearance Estimated Creatinine Clearance: 29 Goal Trough Goal Trough: 15-20 mcg/mL Pharmacy Plan for Drug Dosing Pharmacy Plan for Drug Dosing: Vancomycin trough level of 23.6, drawn 22.75hrs post-dose, was high. SCr did increase from 1.08 to 1.12 to 1.36. Will suspend current dosing and draw a random level in twelve hours to determine further orders. Pharmacy Service will continue to monitor and adjust dosing as required. Follow-Up Labs Follow-Up Labs: Trough: Vancomycin (random) Date/Time Labs Ordered Labs to be done on [date and time ordered]: 03/14/24 @1300
[2024-03-14] MEDS: oxyCODONE 5 MG Tablet 10 MG PO ×5 (03:16→21:29)
[2024-03-14] MEDS: Piperacil/Tazobactam 3.375 GM in 0.9% Normal Saline (50mL MB+) 50 ML IV ×3 (05:59→21:22)
[2024-03-14 06:29] LABS: Absolute Lymphocyte Count 1.92 X10^3/uL (0.83-4.51); Absolute Neutrophil Count 6.5 X10^3/uL (2.0-7.7); Basophil# 0.03 X10^3/uL; Basophil% 0.3 % (0-1); Eosinophil# 0.03 X10^3/uL; Eosinophils% 0.3 % (0-5); Hematocrit 30.2 % (37-47); Hemoglobin 9.6 g/dL (12.0-15.0); Lymphocyte # 1.92 X10^3/ul (0.83-4.51); Lymphocyte % 20.4 % (19-41); Mean Corp Hgb Conc 31.8 g/dL (32-36); Mean Corpuscular Hgb 30.2 pg (27.0-32.0); Mean Platelet Vol. 10.2 fl (6.2-12.0); Monocyte# 0.92 X10^3/uL; Monocyte% 9.8 % (0-10); NRBC Flagged by Analyzer 0 % (0-5); Neutrophil # 6.47 X10^3/uL (2.7-7.7); Neutrophil % 68.9 % (47-70); Platelet Count 159 K/mm3 (150-450); RBC Distribution Width CV 17.7 % (11.6-14.6); RBC Distribution Width SD 60.9 fl (35.1-43.9); Red Blood Count 3.18 M/mm3 (4.2-5.4); White Blood Count 9.4 K/mm3 (4.4-11.0)
[2024-03-14 07:16] LABS: Bedside Glucose 115 mg/dL (74-106)
--- NOTE | 2024-03-14 07:43 | PCM.PN.SRG ---
Subjective Subjective I saw Eri resting comfortably in bed this morning. She reports expected pain in her right leg along the incision sites. She has not had any bleeding through the dressings that were placed yesterday. Yesterday afternoon her hemoglobin was noted to have dropped to 7.5. Yesterday evening/overnight she received 2 units packed red blood cells and hemoglobin this morning is 9.4. Podiatry is planning for TMA tomorrow. Objective Data Objective Data Vital Signs: Vital Signs Temp Pulse Resp BP Pulse Ox O2 Del Method O2 Flow Rate 98 F 96 14 114/70 97 Room Air 2 03/14/24 03:00 03/14/24 03:00 03/14/24 03:00 03/14/24 03:00 03/14/24 03:00 03/14/24 03:00 03/13/24 08:00 Oxygen Flow Rate (L/min) 2 Oxygen Delivery Method Room Air Weight: 142 lb 3.17 oz Body Mass Index (BMI) 25.2 Intake & Output: Intake and Output for Last 24 Hours 03/12/24 03/13/24 03/14/24 23:59 23:59 23:59 Intake Total 2905.51 / 2914.91 2246.92 / 2366.92 290 / 290 Output Total 600 / 600 275 / 675 1200 / 1200 Balance 2305.51 / 2314.91 1971.92 / 1691.92 -910 / -910 Lab / Micro Data 03/14/24 08:22 03/13/24 03:42 Labs: Laboratory Results - last 24 hr 03/12/24 20:51: Crossmatch See Detail 03/12/24 20:51: Crossmatch See Detail 03/13/24 07:35: POC Glucose 155 H 03/13/24 09:40: APTT 26.9 03/13/24 11:46: POC Glucose 179 H 03/13/24 16:01: Hgb 7.5 L, APTT 39.8 H 03/13/24 16:27: POC Glucose 189 H 03/13/24 21:54: POC Glucose 139 H 03/14/24 01:10: Vancomycin Trough 23.6 H 03/14/24 05:18: WBC 9.4, RBC 3.18 L, Hgb 9.6 L, Hct 30.2 L, MCV 95.0, MCH 30.2, MCHC 31.8 L, RDW Std Deviation 60.9 H, RDW Coeff of Kate 17.7 H, Plt Count 159, MPV 10.2, Immature Gran % (Auto) 0.300, Neut % (Auto) 68.9, Lymph % (Auto) 20.4, [place] % (Auto) 9.8, Eos % (Auto) 0.3, Baso % (Auto) 0.3, Absolute Neuts (auto) 6.5, Absolute Lymphs (auto) 1.92, Nucleated RBC % 0 03/14/24 06:03: POC Glucose 115 H Micro: Microbiology 03/07/24 22:50 Blood Culture (Wb) - Anticubital Left Blood Culture - Final No growth in 5 days. Physical Exam Const alert, oriented x3 and no apparent distress General Appearance: cooperative HEENT normocephalic, hearing grossly normal bilaterally, external ears normal and external nose normal Eyes EOMs intact bilaterally General Eye: normal appearance of both eyes Neck General: normal visual inspection and trachea midline Resp normal respiratory effort, normal air movement, no retractions and no use of accessory muscles Effort and Inspection: able to speak in complete sentences Cardio Rate: tachycardic Extremity Extremity Narrative: + PT and DP Doppler signal, femoropopliteal bypass Doppler signal Right toes with stable dry eschar. Minimal right lower extremity edema. 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 She is overall doing well this morning, pain is well-controlled. Vascular exam is stable with good PT Doppler signal. No significant bleeding/drainage from the right lower extremity incision sites, will continue with dry dressings changed once daily or more often as needed to manage drainage. Hemoglobin did improve to 9.4 this morning after 2 units overnight. She has not had any significant bleeding from the right lower extremity incision site since first dressing change yesterday morning, hopefully reequilibrating from surgery. Will restart heparin at a continuous low-dose 300 units/h infusion and continue to monitor closely. Podiatry is planning intervention potentially tomorrow.
[2024-03-14] MEDS: Acetaminophen 325 MG Tablet 650 MG PO (07:59)
[2024-03-14 08:32] LABS: Absolute Lymphocyte Count 1.65 X10^3/uL (0.83-4.51); Absolute Neutrophil Count 6.7 X10^3/uL (2.0-7.7); Basophil# 0.04 X10^3/uL; Basophil% 0.4 % (0-1); Eosinophil# 0.03 X10^3/uL; Eosinophils% 0.3 % (0-5); Hematocrit 28.3 % (37-47); Hemoglobin 9.4 g/dL (12.0-15.0); Lymphocyte # 1.65 X10^3/ul (0.83-4.51); Lymphocyte % 17.7 % (19-41); Mean Corp Hgb Conc 33.2 g/dL (32-36); Mean Corpuscular Hgb 30.6 pg (27.0-32.0); Mean Corpuscular Volume 92.2 fL (81-99); Mean Platelet Vol. 9.3 fl (6.2-12.0); Monocyte# 0.85 X10^3/uL; Monocyte% 9.1 % (0-10); NRBC Flagged by Analyzer 0.2 % (0-5); Neutrophil # 6.73 X10^3/uL (2.7-7.7); Neutrophil % 72.1 % (47-70); Platelet Count 150 K/mm3 (150-450); RBC Distribution Width CV 17.7 % (11.6-14.6); RBC Distribution Width SD 58.8 fl (35.1-43.9); Red Blood Count 3.07 M/mm3 (4.2-5.4); White Blood Count 9.3 K/mm3 (4.4-11.0)
[2024-03-14 08:54] LABS: International Normalized Ratio 1.1; Partial Thromboplast Time 27.3 Seconds (24.1-36.2); Prothrombin Time (Protime)PT. 14.6 SECONDS (11.7-14.9)
--- NOTE | 2024-03-14 09:50 | CASEMGMT ---
SW was informed by physician that patient would like to go to [facility] at discharge. SW made a referral to TCU. Christina WELDON
[2024-03-14] MEDS: HEPARIN/D5w 25,000 UNITS 25,000 UNITS/250 ML IV.SOLN. 3 UNITS CONT INF (10:37)
[2024-03-14] MEDS: Lactobacillis Acidophilus 1 CAP PO ×4 (10:58→21:22)
[2024-03-14] MEDS: Spironolactone 25 MG Tablet 12.5 MG PO (10:59)
[2024-03-14] MEDS: Tolterodine Tartrate 2 MG CAP.SA PO (10:59)
[2024-03-14] MEDS: Furosemide 40 MG Tablet PO (10:59)
[2024-03-14] MEDS: Clopidogrel Bisulfate 75 MG Tablet PO (11:00)
[2024-03-14] MEDS: Magnesium Chloride 64 MG Delay Rel.Tablet 128 MG PO (11:00)
[2024-03-14] MEDS: Metoprolol(XL)Succ 50 MG Tablet PO (11:02)
[2024-03-14] MEDS: Sertraline 50 MG Tablet 25 MG PO (11:03)
[2024-03-14] MEDS: Ferrous Sulfate 325 MG Tablet PO (11:04)
[2024-03-14 11:45] LABS: Bedside Glucose 118 mg/dL (74-106)
[2024-03-14] MEDS: Vancomycin Trough/Random Due 1 LAB MC (12:57)
[2024-03-14 13:06] LABS: Hemoglobin 9.1 g/dL (12.0-15.0)
[2024-03-14 13:25] LABS: Vancomycin, Random Level 16.6 ug/mL (0.0-15.0)
[2024-03-14 13:26] LABS: EST Glomerular Filtration Rate 45 mL/min (>60); Est Glom Filt Rate - Afr Amer 55 mL/min (>60); Estimated Creatinine Clearance 31.54 ml/min
--- NOTE | 2024-03-14 13:46 | PCM.RX.CS ---
Consult Antibiotic Management Pharmacy has been consulted to manage selected antibiotic: Vancomycin Type of Intervention Type of Consult: Follow-up Prior Doses of Antibiotics Prior Doses of Antibiotics Received/Current Regimen: the most recent dose was 1500mg IV q24h until it was held due to a high trough Labs Labs: Sodium 141 mmol/L (136-145) 03/13/24 03:42 Potassium 3.8 mmol/L (3.5-5.1) 03/13/24 03:42 Chloride 112 mmol/L (98-107) H 03/13/24 03:42 Carbon Dioxide 19.0 mmol/L (21.0-32.0) L 03/13/24 03:42 Anion Gap 10 (5-15) 03/13/24 03:42 BUN 19 mg/dL (7-18) H 03/13/24 03:42 Creatinine 1.20 mg/dL (0.55-1.02) H 03/14/24 12:48 Est GFR (MDRD) Af Amer 55 mL/min (>60) L 03/14/24 12:48 Est GFR (MDRD) Non-Af 45 mL/min (>60) L 03/14/24 12:48 BUN/Creatinine Ratio 14.0 RATIO (10-20) 03/13/24 03:42 Glucose 186 mg/dL (74-106) H 03/13/24 03:42 Vancomycin Trough 23.6 ug/mL (5.0-15.0) H 03/14/24 01:10 Random Vancomycin 16.6 ug/mL (0.0-15.0) H 03/14/24 12:48 Microbiology Microbiology: Microbiology 03/07/24 22:50 Blood Culture (Wb) - Anticubital Left Blood Culture - Final No growth in 5 days. Dosing Weight Weight used for dosin.5 kg Estimated Creatinine Clearance Estimated Creatinine Clearance: 32 ml/min Goal Trough Goal Trough: 15-20 mcg/mL Pharmacy Plan for Drug Dosing Pharmacy Plan for Drug Dosing: The vanc random level drawn at 12:48 today was 16.6. This is back below 20 so can resume dosing at a newly calculated dose of 1000mg IV q24h. Will check a trough before the 3rd dose. Of note, the patient's SCr of 1.20 today has improved some from yesterday's 1.36. Pharmacy Service will continue to monitor and adjust dosing as required. Follow-Up Labs Follow-Up Labs: Trough: Vancomycin Date/Time Labs Ordered Labs to be done on [date and time ordered]: 03/16/24 13:30
[2024-03-14] MEDS: Vancomycin IV 1,000 MG/200 ML BAG 200 MG IV (14:19)
--- NOTE | 2024-03-14 15:24 | PCM.PROGNOTE ---
Subjective Subjective Patient was seen today for follow up. She is resting in bed. Planning TMA tomorrow, no new complaints, no c/o f/c/n/v. Appears pain is controlled. Objective Data Objective Data Vital Signs: Vital Signs Temp Pulse Resp BP Pulse Ox O2 Del Method O2 Flow Rate 98.3 F 74 14 97/57 L 98 Room Air 2 03/14/24 11:00 03/14/24 11:02 03/14/24 11:00 03/14/24 11:00 03/14/24 11:00 03/14/24 11:00 03/13/24 08:00 Oxygen Flow Rate (L/min) 2 Oxygen Delivery Method Room Air Weight: 64.5 kg Body Mass Index (BMI) 25.2 Intake & Output: Intake and Output for Last 24 Hours 03/12/24 03/13/24 03/14/24 23:59 23:59 23:59 Intake Total 2905.51 / 2914.91 2246.92 / 2366.92 342.71 / 342.71 Output Total 600 / 600 275 / 675 1200 / 1200 Balance 2305.51 / 2314.91 1971.92 / 1691.92 -857.29 / -857.29 Lab / Micro Data 03/14/24 16:00 03/14/24 12:48 Labs: Laboratory Results - last 24 hr 03/12/24 20:51: Crossmatch See Detail 03/12/24 20:51: Crossmatch See Detail 03/13/24 16:01: Hgb 7.5 L, APTT 39.8 H 03/13/24 16:27: POC Glucose 189 H 03/13/24 21:54: POC Glucose 139 H 03/14/24 01:10: Vancomycin Trough 23.6 H 03/14/24 05:18: WBC 9.4, RBC 3.18 L, Hgb 9.6 L, Hct 30.2 L, MCV 95.0, MCH 30.2, MCHC 31.8 L, RDW Std Deviation 60.9 H, RDW Coeff of Kate 17.7 H, Plt Count 159, MPV 10.2, Immature Gran % (Auto) 0.300, Neut % (Auto) 68.9, Lymph % (Auto) 20.4, [place] % (Auto) 9.8, Eos % (Auto) 0.3, Baso % (Auto) 0.3, Absolute Neuts (auto) 6.5, Absolute Lymphs (auto) 1.92, Nucleated RBC % 0 03/14/24 06:03: POC Glucose 115 H 03/14/24 08:22: WBC 9.3, RBC 3.07 L, Hgb 9.4 L, Hct 28.3 L, MCV 92.2, MCH 30.6, MCHC 33.2, RDW Std Deviation 58.8 H, RDW Coeff of Kate 17.7 H, Plt Count 150, MPV 9.3, Immature Gran % (Auto) 0.400, Neut % (Auto) 72.1 H, Lymph % (Auto) 17.7 L, [place] % (Auto) 9.1, Eos % (Auto) 0.3, Baso % (Auto) 0.4, Absolute Neuts (auto) 6.7, Absolute Lymphs (auto) 1.65, Nucleated RBC % 0.2, PT 14.6, INR 1.1, APTT 27.3 03/14/24 11:23: POC Glucose 118 H 03/14/24 12:48: Hgb 9.1 L, Creatinine 1.20 H, Estim Creat Clear Calc 31.54, Est GFR (MDRD) Af Amer 55 L, Est GFR (MDRD) Non-Af 45 L, Random Vancomycin 16.6 H Micro: Microbiology 03/07/24 22:50 Blood Culture (Wb) - Anticubital Left Blood Culture - Final No growth in 5 days. Physical Exam Const alert, oriented x3 and no apparent distress Assessment & Plan Assessment/Plan (1) Black toe: (2) Acute osteomyelitis of right foot: PLAN: Plan Evaluation performed. Reviewed diagnostic data. Left foot xray with possible osteomyelitis 1st toe proximal phalanx - ordered MRI right foot for further evaluation - reviewed, no evidence of osteomyelitis. She remains of IV antibiotics - ID on consult. Plans for TMA on tomorrow afternoon. Will continue to follow.
[2024-03-14 16:13] LABS: Hematocrit 28.1 % (37-47); Hemoglobin 9.4 g/dL (12.0-15.0)
--- NOTE | 2024-03-14 16:39 | PN.HOSP_ITS ---
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 (03/08/24) Overweight (03/08/24) Dilated cardiomyopathy (03/08/24) Atherosclerosis of [place] arteries of extremities with gangrene, unspecified extremity (03/08/24) Peripheral vascular disease, unspecified (03/08/24) Gangrene, not elsewhere classified (03/08/24) Cellulitis of right toe (03/08/24) Primary osteoarthritis, unspecified site (03/08/24) Other acute osteomyelitis, right ankle and foot (03/08/24) Other malaise (03/08/24) Contusion of unspecified lower leg, initial encounter (03/08/24) Other specified postprocedural states (03/08/24) Subjective Subjective Patient was seen and examined today, she stated she was nervous about her upcoming surgery tomorrow. I talked briefly with Dr. Blanca about her care. Patient's hemoglobin was rechecked this afternoon and it remained stable. Objective Data Objective Data Vital Signs: Vital Signs Temp Pulse Resp BP Pulse Ox O2 Del Method O2 Flow Rate 98.3 F 74 14 97/57 L 98 Room Air 2 03/14/24 11:00 03/14/24 11:02 03/14/24 11:00 03/14/24 11:00 03/14/24 11:00 03/14/24 11:00 03/13/24 08:00 Oxygen Flow Rate (L/min) 2 Oxygen Delivery Method Room Air Weight: 64.5 kg Body Mass Index (BMI) 25.2 Intake & Output: Intake and Output for Last 24 Hours 03/12/24 03/13/24 03/14/24 23:59 23:59 23:59 Intake Total 2905.51 / 2914.91 2246.92 / 2366.92 542.71 / 542.71 Output Total 600 / 600 275 / 675 1200 / 1200 Balance 2305.51 / 2314.91 1971.92 / 1691.92 -657.29 / -657.29 Lab / Micro Data 03/14/24 16:00 03/14/24 12:48 Labs: Laboratory Results - last 24 hr 03/12/24 20:51: Crossmatch See Detail 03/12/24 20:51: Crossmatch See Detail 03/13/24 16:27: POC Glucose 189 H 03/13/24 21:54: POC Glucose 139 H 03/14/24 01:10: Vancomycin Trough 23.6 H 03/14/24 05:18: WBC 9.4, RBC 3.18 L, Hgb 9.6 L, Hct 30.2 L, MCV 95.0, MCH 30.2, MCHC 31.8 L, RDW Std Deviation 60.9 H, RDW Coeff of Kate 17.7 H, Plt Count 159, MPV 10.2, Immature Gran % (Auto) 0.300, Neut % (Auto) 68.9, Lymph % (Auto) 20.4, [place] % (Auto) 9.8, Eos % (Auto) 0.3, Baso % (Auto) 0.3, Absolute Neuts (auto) 6.5, Absolute Lymphs (auto) 1.92, Nucleated RBC % 0 03/14/24 06:03: POC Glucose 115 H 03/14/24 08:22: WBC 9.3, RBC 3.07 L, Hgb 9.4 L, Hct 28.3 L, MCV 92.2, MCH 30.6, MCHC 33.2, RDW Std Deviation 58.8 H, RDW Coeff of Kate 17.7 H, Plt Count 150, MPV 9.3, Immature Gran % (Auto) 0.400, Neut % (Auto) 72.1 H, Lymph % (Auto) 17.7 L, [place] % (Auto) 9.1, Eos % (Auto) 0.3, Baso % (Auto) 0.4, Absolute Neuts (auto) 6.7, Absolute Lymphs (auto) 1.65, Nucleated RBC % 0.2, PT 14.6, INR 1.1, APTT 27.3 03/14/24 11:23: POC Glucose 118 H 03/14/24 12:48: Hgb 9.1 L, Creatinine 1.20 H, Estim Creat Clear Calc 31.54, Est GFR (MDRD) Af Amer 55 L, Est GFR (MDRD) Non-Af 45 L, Random Vancomycin 16.6 H 03/14/24 16:00: Hgb 9.4 L, Hct 28.1 L Micro: Microbiology 03/07/24 22:50 Blood Culture (Wb) - Anticubital Left Blood Culture - Final No growth in 5 days. Physical Exam Narrative alert, oriented x 3, no apparent distress and healthy appearing Constitutional Narrative: Patient is alert General Appearance: cooperative, well kempt and well developed Orientation / Consciousness: awake HEENT normocephalic, head/scalp atraumatic and moist oral mucous membranes Eyes PERRL, EOMs intact bilaterally and conjunctivae normal Neck supple, no JVD and thyroid normal General: trachea midline Resp normal respiratory effort, no retractions, no use of accessory muscles and clear to auscultation bilaterally Auscultation: Negative for rales, rhonchi or wheezes Cardio S1 normal heart sound, S2 normal heart sound, no murmurs, no rub and no gallops Cardio Narrative: Heart rate and rhythm is irregular GI normal to inspection, nondistended, normoactive bowel sounds, soft to palpation, non-tender and non-distended Extremity Extremity Narrative: Right leg is wrapped in surgical dressing from the upper thigh area down to the right ankle area, there is evidence of dry gangrene on dorsal areas of the right foot on several toes and on the dorsum of the foot Neuro CN's II-XII intact bilaterally, moves all extremities, no focal motor deficits and no sensory deficits noted, patient is alert and oriented x 3 Sensorium / Orientation: awake Speech: speech normal Psych affect normal Assessment & Plan Assessment/Plan (1) 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 #4 type 2 diabetes-patient's blood sugars will be monitored, sliding scale insulin will be administered as needed #5 essential hypertension-patient will remain on her present medications #6 hyperlipidemia-patient is on simvastatin #7 chronic atrial fibrillation-patient is on rate control medications and normally on anticoagulation #8 acute blood loss anemia from hematoma of the right leg requiring blood transfusion-patient's hemoglobin appears to be stable today Total clinical time spent by myself addressing the patient's medical issues, reviewing all her data, and collaborating with patient's care team: 35 minutes Charges/Coding Visit Charges Inpatient E&M: 77016 Subs Hosp L2
[2024-03-14] MEDS: Insulin Lispro 100 UNIT/ML INSULN.PEN SC (17:00)
[2024-03-14] MEDS: Metoprolol(XL)Succ 25 MG Tablet PO (17:03)
[2024-03-14] MEDS: Losartan Potassium 50 MG Tablet PO (17:05)
[2024-03-14 17:58] LABS: Bedside Glucose 161 mg/dL (74-106)
[2024-03-14] MEDS: Atorvastatin Calcium 20 MG Tablet PO (21:21)
[2024-03-14 22:11] LABS: Bedside Glucose 146 mg/dL (74-106)
[2024-03-15] VITALS (14 sets, daily range): BP systolic 119–155; BP diastolic 59–80; PULSE 66–106; RESP 16–18; TEMP 36.3–37.1; O2SAT 91–99; BMI 25.2; BMI 25.7
[2024-03-15] MEDS: Piperacil/Tazobactam 3.375 GM in 0.9% Normal Saline (50mL MB+) 50 ML IV ×3 (05:33→21:02)
[2024-03-15 06:26] LABS: Absolute Lymphocyte Count 1.66 X10^3/uL (0.83-4.51); Absolute Neutrophil Count 5.3 X10^3/uL (2.0-7.7); Basophil# 0.06 X10^3/uL; Basophil% 0.8 % (0-1); Eosinophil# 0.11 X10^3/uL; Eosinophils% 1.4 % (0-5); Hemoglobin 9.2 g/dL (12.0-15.0); Lymphocyte # 1.66 X10^3/ul (0.83-4.51); Lymphocyte % 21.1 % (19-41); Mean Corp Hgb Conc 32.9 g/dL (32-36); Mean Corpuscular Hgb 30.9 pg (27.0-32.0); Mean Platelet Vol. 10.1 fl (6.2-12.0); Monocyte% 8.9 % (0-10); NRBC Flagged by Analyzer 0.3 % (0-5); Neutrophil # 5.27 X10^3/uL (2.7-7.7); Neutrophil % 67.2 % (47-70); Platelet Count 165 K/mm3 (150-450); RBC Distribution Width CV 17.5 % (11.6-14.6); Red Blood Count 2.98 M/mm3 (4.2-5.4); White Blood Count 7.9 K/mm3 (4.4-11.0)
[2024-03-15 06:37] LABS: International Normalized Ratio 1.1; Partial Thromboplast Time 29.4 Seconds (24.1-36.2); Prothrombin Time (Protime)PT. 14.3 SECONDS (11.7-14.9)
[2024-03-15 06:52] LABS: Anion Gap 4 (5-15); BUN 20 mg/dL (7-18); BUN/Creat Ratio 20.1 RATIO (10-20); Calcium,Total 8.5 mg/dL (8.5-10.1); Chloride 110 mmol/L (98-107); EST Glomerular Filtration Rate 56 mL/min (>60); Est Glom Filt Rate - Afr Amer 68 mL/min (>60); Estimated Creatinine Clearance 37.84 ml/min; Glucose 134 mg/dL (74-106); Potassium 3.4 mmol/L (3.5-5.1); Sodium Level 140 mmol/L (136-145)
[2024-03-15 07:05] LABS: Bedside Glucose 132 mg/dL (74-106)
[2024-03-15] MEDS: Sertraline 50 MG Tablet 25 MG PO (09:05)
[2024-03-15] MEDS: LORazepam 2 MG/ML Syringe 0.5 MG IV ×2 (09:05→10:11)
[2024-03-15] MEDS: Metoprolol(XL)Succ 50 MG Tablet PO (09:05)
[2024-03-15] MEDS: Magnesium Chloride 64 MG Delay Rel.Tablet 128 MG PO (09:05)
--- NOTE | 2024-03-15 09:45 | PN.HOSP_ITS ---
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 (03/08/24) Overweight (03/08/24) Dilated cardiomyopathy (03/08/24) Atherosclerosis of [place] arteries of extremities with gangrene, unspecified extremity (03/08/24) Peripheral vascular disease, unspecified (03/08/24) Gangrene, not elsewhere classified (03/08/24) Cellulitis of right toe (03/08/24) Primary osteoarthritis, unspecified site (03/08/24) Other acute osteomyelitis, right ankle and foot (03/08/24) Other malaise (03/08/24) Contusion of unspecified lower leg, initial encounter (03/08/24) Other specified postprocedural states (03/08/24) Subjective Subjective Patient was seen and examined today, she appears anxious about her surgery today, I have administered a dose of Ativan for the patient. Objective Data Objective Data Vital Signs: Vital Signs Temp Pulse Resp BP Pulse Ox O2 Del Method O2 Flow Rate 97.5 F L 68 18 119/70 96 Room Air 2 03/15/24 09:03 03/15/24 09:05 03/15/24 09:03 03/15/24 09:03 03/15/24 09:03 03/15/24 09:03 03/13/24 08:00 Oxygen Flow Rate (L/min) 2 Oxygen Delivery Method Room Air Weight: 65.8 kg Body Mass Index (BMI) 25.7 Intake & Output: Intake and Output for Last 24 Hours 03/13/24 03/14/24 03/15/24 23:59 23:59 23:59 Intake Total 2246.92 / 2366.92 690.00 / 690.00 100 / 100 Output Total 275 / 675 2700 / 2700 500 / 500 Balance 1971.92 / 1691.92 -2010.00 / -2009.00 -400 / -400 Lab / Micro Data 03/15/24 05:23 03/15/24 05:23 Labs: Laboratory Results - last 24 hr 03/14/24 11:23: POC Glucose 118 H 03/14/24 12:48: Hgb 9.1 L, Creatinine 1.20 H, Estim Creat Clear Calc 31.54, Est GFR (MDRD) Af Amer 55 L, Est GFR (MDRD) Non-Af 45 L, Random Vancomycin 16.6 H 03/14/24 16:00: Hgb 9.4 L, Hct 28.1 L 03/14/24 16:40: APTT 30.0 03/14/24 16:58: POC Glucose 161 H 03/14/24 21:20: POC Glucose 146 H 03/15/24 05:23: WBC 7.9, RBC 2.98 L, Hgb 9.2 L, Hct 28.0 L, MCV 94.0, MCH 30.9, MCHC 32.9, RDW Std Deviation 59.0 H, RDW Coeff of Kate 17.5 H, Plt Count 165, MPV 10.1, Immature Gran % (Auto) 0.600, Neut % (Auto) 67.2, Lymph % (Auto) 21.1, [place] % (Auto) 8.9, Eos % (Auto) 1.4, Baso % (Auto) 0.8, Absolute Neuts (auto) 5.3, Absolute Lymphs (auto) 1.66, Nucleated RBC % 0.3, PT 14.3, INR 1.1, APTT 29.4, Sodium 140, Potassium 3.4 L, Chloride 110 H, Carbon Dioxide 26.0, Anion Gap 4 L, BUN 20 H, Creatinine 1.00, Estim Creat Clear Calc 37.84, Est GFR (MDRD) Af Amer 68, Est GFR (MDRD) Non-Af 56 L, BUN/Creatinine Ratio 20.1 H, Glucose 134 H, Calcium 8.5 03/15/24 06:29: POC Glucose 132 H Micro: Microbiology 03/07/24 22:50 Blood Culture (Wb) - Anticubital Left Blood Culture - Final No growth in 5 days. Physical Exam Narrative alert, oriented x 3, no apparent distress and healthy appearing Constitutional Narrative: Patient is alert General Appearance: cooperative, well kempt and well developed Orientation / Consciousness: awake HEENT normocephalic, head/scalp atraumatic and moist oral mucous membranes Eyes PERRL, EOMs intact bilaterally and conjunctivae normal Neck supple, no JVD and thyroid normal General: trachea midline Resp normal respiratory effort, no retractions, no use of accessory muscles and clear to auscultation bilaterally Auscultation: Negative for rales, rhonchi or wheezes Cardio S1 normal heart sound, S2 normal heart sound, no murmurs, no rub and no gallops Cardio Narrative: Heart rate and rhythm is irregular GI normal to inspection, nondistended, normoactive bowel sounds, soft to palpation, non-tender and non-distended Extremity Extremity Narrative: Right leg is wrapped in surgical dressing from the upper thigh area down to the right ankle area, right foot is wrapped with surgical dressing this was not removed to examine the foot Neuro CN's II-XII intact bilaterally, moves all extremities, no focal motor deficits and no sensory deficits noted, patient is alert and oriented x 3 Sensorium / Orientation: awake Speech: speech normal Psych affect normal Assessment & Plan Assessment/Plan (1) Dry gangrene: (2) 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 Dry gangrene of the right foot secondary to peripheral vascular disease- patient appears medically stable at this time, patient will undergo transmetatarsal amputation today of the right foot, I talked to the patient briefly about inpatient skilled care when she is discharged from the hospital yesterday, I suspect she will need placement, patient states she has never used crutches before. #2 peripheral vascular disease-status post bypass right leg-patient appears to be doing well postop #3 factor V deficiency-patient's heparin drip has been stopped due to her surgery today #4 type 2 diabetes-patient's blood sugars will be monitored, sliding scale insulin will be administered as needed #5 essential hypertension-patient will remain on her present medications #6 hyperlipidemia-patient is on simvastatin #7 chronic atrial fibrillation-patient is on rate control medications and normally on anticoagulation #8 acute blood loss anemia from hematoma of the right leg requiring blood transfusion-patient's hemoglobin appears to be stable today Patient appears medically stable to undergo surgery today Total clinical time spent by myself addressing the patient's medical issues, reviewing all her data, and collaborating with patient's care team: 35 minutes Charges/Coding Visit Charges Inpatient E&M: 72058 Subs Hosp L2
[2024-03-15] MEDS: 0.9% Saline Lock 10 ML Syringe IV ×2 (10:11→20:39)
[2024-03-15] MEDS: oxyCODONE 5 MG Tablet 10 MG PO ×2 (10:15→23:16)
--- NOTE | 2024-03-15 10:33 | WOUNDNOTE ---
Pt is scheduled for surgery later today so will leave dressing in place to the right lower leg/foot.
[2024-03-15 11:58] LABS: Bedside Glucose 116 mg/dL (74-106)
--- NOTE | 2024-03-15 12:41 | NURSING ---
Report called to surgery
[2024-03-15] MEDS: 0.9% Normal Saline (1000mL) 1,000 ML 15 ML IV (12:48)
--- NOTE | 2024-03-15 13:24 | PCM.PRE.AN2 ---
ASA Classification* ASA Classification ASA Classification: 3 Assessment & Plan Anesthesia* Anesthesia Assessment Anesthesia Assessment: Discussed sedation and/or anesthesia options, risks, benefits, and alternatives with patient/parents/legal guardian/POA. Questions invited. The patient/parents/legal guardian/POA seems to understand and agrees to proceed with anesthesia plan. Reviewed the physical assessment, medical history, allergy history and patient home medications list prior to surgery/procedure/anesthetic and documented any changes. Performed airway and anesthesia risk assessments. Anesthesia Type Anesthesia Type: General History Source History Obtained from:: Patient and Chart Anesthesia Focused Assessment* Temperature: 98.3 F Pulse Rate: 106 Blood Pressure: 131/59 Respiratory Rate: 18 Pulse Ox: 94 Oxygen Delivery Method: Room Air Airway Assessment Mouth opens: >3 cm Mallampati Score: IV Teeth Condition: Caps/Crowns (Patient has several caps. They are all tight.) Neck Range of motion (ROM): Limited ROM Pertinent Findings EKG Pertinent Findings:: March 13, 2024. Atrial fibrillation with rapid ventricular response. Left axis deviation anterior infarct. ST and T wave abnormality consider lateral ischemia Focused Labs Anesthesia Preop lab: CBC WBC 7.9 K/mm3 (4.4-11.0) 03/15/24 05:23 RBC 2.98 M/mm3 (4.2-5.4) L 03/15/24 05:23 Hgb 9.2 g/dL (12.0-15.0) L 03/15/24 05:23 Hct 28.0 % (37-47) L 03/15/24 05:23 Plt Count 165 K/mm3 (150-450) 03/15/24 05:23 CHEMISTRY Potassium 3.4 mmol/L (3.5-5.1) L 03/15/24 05:23 Sodium 140 mmol/L (136-145) 03/15/24 05:23 Magnesium 2.3 mg/dL (1.6-2.6) 03/08/24 05:15 Phosphorus 4.1 mg/dL (2.5-4.9) 03/08/24 05:15 BUN 20 mg/dL (7-18) H 03/15/24 05:23 Creatinine 1.00 mg/dL (0.55-1.02) 03/15/24 05:23 Glucose 134 mg/dL (74-106) H 03/15/24 05:23 POC Glucose 116 mg/dL (74-106) H 03/15/24 11:41 TSH 5.590 uIU/mL (0.358-3.740) H 03/08/24 05:15 COAG PT 14.3 SECONDS (11.7-14.9) 03/15/24 05:23 Pre-Assessment Diagnosis/Proposed Procedure Planned Operative Procedure(s): Abdominal aorta angiogram in [facility] Anesthesia History Anesthesia History - chief medical officer: Anesthesia History - chief medical officer Hx Hospitalization Any Problems With Anesthesia No 03/15/24 01:48 Cholinesterase deficiency No 03/15/24 01:48 You/Your Family Experience No 03/15/24 01:48 fever (hyperthermia) with Relationship Recent Exposure to Contagious No 03/15/24 01:48 Disease Does patient have nerve No 03/15/24 01:48 stimulator Patient instructed to have device shut off --Does patient have Pacemaker No 03/15/24 12:39 or ICD? When Was Last Pacemaker Check QUESTION #4 FULL TEXT: You/Your Family Experience fever (hyperthermia) with Anesthesia Last Oral Intake Last Oral intake: Last Oral Intake NPO since 00:00 03/15/24 12:39 Meds taken in AM with sips of Yes 03/15/24 12:39 water? Meds patient instructed to metoprolol 03/15/24 12:39 take am of surgery zoloft magnesium Any additional information?: Yes Meds taken in AM with sips of water?: Yes PONV PONV - chief medical officer: PONV - chief medical officer Female HX of Motion Sickness HX of N/V After Surgery Non-Smoker Duration of Surgery greater than 60 minutes Number of Risk Factors PONV Score Height & Weight Height & Weight: Anesthesia: Height & Weight Height 5 ft 3 in 03/15/24 12:39 Weight: 65.8 kg 03/15/24 12:39 Body Mass Index (BMI) 25.7 03/15/24 12:39 Respiratory Assessment Respiratory Assessment - chief medical officer: Respiratory Tract Infection Hx - chief medical officer Hx Respiratory Tract Infection No 03/15/24 01:48 STOP Sleep Apnea STOP Sleep Apnea - chief medical officer: STOP Sleep Apnea - chief medical officer Hx Hypertension Yes 03/08/24 15:10 Hx Sleep Apnea No 03/12/24 19:30 CPAP No 03/12/24 18:43 BIPAP No 01/27/24 14:35 Do you snore loudly (louder No 03/08/24 01:04 than talking or can be heard Do you often feel tired/ No 03/08/24 01:04 fatigued/ sleepy during daytime? Has anyone observed you stop No 03/08/24 01:04 breathing during sleep? STOP Results Negative 03/12/24 18:43 QUESTION #5 FULL TEXT : Do you snore loudly (louder than talking or can be heard through closed doors)? Tobacco Use History Tobacco Use History - chief medical officer: Tobacco Use History - chief medical officer Tobacco Use Smoking Status Never smoker 03/08/24 01:04 Hx Tobacco Use No 03/08/24 01:04 Years Smoking Packs Smoked per Day Smoking Cessation Date was within the last 15 years Hx Smoking Cessation Date Hx Smoking Cessation Counseling Hematologic Medial History Hematologic Hx - chief medical officer: Hematologic Medical Hx - coding consultant Hx of Blood Transfusion No 03/08/24 01:04 Hx of Transfusion in last 3 No 03/08/24 01:04 Months Date of Last Transfusion (if within last 3 months) Ever experience any problems No 03/08/24 01:04 with transfusion(s)? Specify any problems Hx of Preganancy in last 3 No 03/08/24 01:04 Months Nurse Filling Out Transfusion MGROVE 03/08/24 01:04 & Questions: Date: 03/08/24 03/08/24 01:04 Time: 01:10 03/08/24 01:04 Patient unable to answer at this time (ie. confused, unrespo /Reproduction History /Reproductive History - chief medical officer: /Reproductive Hx- chief medical officer Hx Now No 03/15/24 01:48 Gestational Age (in weeks): EDC: Hx Hx Para Hx Section SAB No 03/15/24 01:48 Active Medications Active Medications: Current Medications Generic Name Dose Route Start Last Admin Trade Name Freq PRN Reason Stop Dose Admin Acetaminophen 650 mg 03/08/24 01:03 03/14/24 07:59 Acetaminophen 325 Mg Tablet PO 650 mg Q8H PRN PRN Administration Pain 1-5/10 Or Fever Atorvastatin Calcium 20 mg 03/08/24 22:00 03/14/24 21:21 Atorvastatin Calcium 20 Mg Tablet PO 20 mg QHS KAVYA Administration Clopidogrel Bisulfate 75 mg 03/08/24 12:00 03/15/24 08:25 Clopidogrel Bisulfate 75 Mg Tablet PO Not Given DAILY KAVYA Ferrous Sulfate 325 mg 03/08/24 12:00 03/15/24 09:42 Ferrous Sulfate 325 Mg Tablet PO Not Given DAILY@1200 ON LICENSE OF [facility] Fluticasone Propionate 2 spray 03/08/24 01:03 Fluticasone 0.05% 1 [place] Nasal.Sry NASAL DAILY PRN nasal congestion Furosemide 40 mg 03/08/24 10:00 03/15/24 08:24 Furosemide 40 Mg Tablet PO Not Given DAILY KAVYA Protocol Glucagon 1 mg 03/13/24 14:15 Glucagon 1 Mg/Ml Syringe IM X1 PRN Hypoglycemia Protocol Hydromorphone HCl 0.5 mg 03/12/24 19:23 03/13/24 14:27 Hydromorphone 0.5 Mg/0.5 Ml Syringe IV 0.5 mg Q3H PRN PRN Administration Pain Score 6-10 Vancomycin IV-PHARMACY TO DOSE 500 mls @ 250 mls/hr 03/08/24 01:03 1 each/ Sodium Chloride IV PRN PRN Rx to Dose Protocol Piperacillin Sod/Tazobactam 50 mls @ 12.5 mls/hr 03/08/24 06:00 03/15/24 09:42 Sod 3.375 gm/ Sodium Chloride IV Infused Q8 KAVYA Infusion Sodium Chloride 500 mls @ 15 mls/hr 03/08/24 01:07 IV .[id number] PRN Saline Flush Sodium Chloride 500 mls @ 15 mls/hr 03/08/24 01:07 IV .[id number] PRN Additional IVPB Infusion Dextrose 250 mls @ 0 mls/hr 03/13/24 14:15 Dextrose 10%-Water IV .Q0M PRN HYPOGLYCEMIA Protocol As Directed Heparin Sodium/Dextrose 25,000 units in 250 mls @ 3 mls/hr 03/14/24 08:40 03/15/24 10:35 CONT INF 0 unit/hr .Q48H KAVYA 0 mls/hr Infusion Protocol 300 UNIT/HR Vancomycin HCl 1,000 mg in 200 mls @ 200 mls/hr 03/14/24 14:00 03/14/24 15:30 Vancomycin IV Infused Q24H KAVYA Infusion Sodium Chloride 1,000 mls @ 15 mls/hr 03/15/24 12:35 03/15/24 12:48 IV 03/21/24 01:54 15 mls/hr .Q48H ON LICENSE OF [facility] Administration Protocol Insulin Human Lispro 0 unit 03/13/24 16:00 03/15/24 08:25 Insulin Lispro 100 Unit/Ml Insuln.Pen SC Not Given ACHS ON LICENSE OF [facility] Protocol Losartan Potassium 50 mg 03/08/24 17:00 03/14/24 17:05 Losartan Potassium 50 Mg Tablet PO 50 mg DINNER ON LICENSE OF [facility] Administration Protocol Magnesium Chloride 128 mg 03/08/24 10:00 03/15/24 09:05 Magnesium Chloride 64 Mg Delay Rel.Tablet PO 128 mg DAILY KAVYA Administration Magnesium Hydroxide 30 ml 03/08/24 01:03 Magnesium Hydroxide 30 Ml Udc PO DAILY PRN PRN Constipation Melatonin 3 mg 03/08/24 01:03 03/08/24 01:41 Melatonin 3 Mg Tablet PO 3 mg QHS PRN PRN Administration INSOMNIA Metoprolol Succinate 50 mg 03/08/24 10:00 03/15/24 09:05 Metoprolol(Xl)Succ 50 Mg Tablet PO 50 mg DAILY ON LICENSE OF [facility] Administration Protocol Metoprolol Succinate 25 mg 03/10/24 14:55 03/14/24 17:03 Metoprolol(Xl)Succ 25 Mg Tablet PO 25 mg DINNER ON LICENSE OF [facility] Administration Protocol Ondansetron HCl 4 mg 03/08/24 01:03 Ondansetron 4 Mg/2 Ml Vial IV Q8H PRN PRN NAUSEA/VOMITING Oxycodone HCl 10 mg 03/08/24 01:03 03/15/24 10:15 Oxycodone 5 Mg Tablet PO 10 mg Q4H PRN PRN Administration Pain Score 6-10/10 Senna/Docusate Sodium 2 tablet 03/08/24 10:00 03/15/24 08:25 Senna/Docusate Sodium 1 Tablet PO Not Given DAILY KAVYA Sertraline HCl 25 mg 03/08/24 10:00 03/15/24 09:05 Sertraline 50 Mg Tablet PO 25 mg DAILY ON LICENSE OF [facility] Administration Sodium Chloride 10 - 40 ml 03/08/24 01:07 03/15/24 10:11 0.9% Saline Lock 10 Ml Syringe IV 20 ml UD PRN Administration SALINE FLUSH Spironolactone 12.5 mg 03/08/24 10:00 03/15/24 08:24 Spironolactone 25 Mg Tablet PO Not Given DAILY ON LICENSE OF [facility] Protocol Tolterodine Tartrate 2 mg 03/08/24 10:00 03/15/24 08:24 Tolterodine Tartrate 2 Mg Cap.Sa PO Not Given DAILY ON LICENSE OF [facility] Vancomycin Protocol 1 lab 03/16/24 11:30 Vancomycin Trough/Random Due 03/16/24 15:30 DAILY [facility] Medical History Prolonged QT interval Elevated blood pressure reading without diagnosis of hypertension Dilated cardiomyopathy Factor V Leiden Anxiety Hypokalemia Acute hypoxemic respiratory failure CHF (congestive heart failure) Home Medications ?Medication ?Instructions ?Recorded ?Last Taken ?Type oxybutynin chloride 10 mg 10 mg PO DAILY bladder 09/23/23 01/27/24 History tablet,extended release 24 hr simvastatin 80 mg tablet 80 mg PO QHS cholesterol 09/23/23 01/26/24 History fluticasone propionate 50 2 spray intranasal DAILY PRN nasal 12/31/23 12/31/23 History mcg/actuation nasal congestion spray,suspension glimepiride 2 mg tablet 2 mg PO DAILY dm 12/31/23 Unknown History furosemide 40 mg tablet 40 mg PO BIDLX water pill 30 days 01/03/24 01/27/24 Rx #60 tabs losartan 50 mg tablet 50 mg PO DINNER blood pressure 01/03/24 01/21/24 Rx days #30 tabs metoprolol succinate 50 mg 50 mg PO DAILY heart rate 1 month 01/03/24 01/21/24 Rx tablet,extended release 24 hr #30 tabs spironolactone 25 mg tablet 12.5 mg (1/2 x 25 mg) PO DAILY 01/03/24 01/21/24 Rx water pill #30 tabs acetaminophen 500 mg tablet 1,000 mg (2 x 500 mg) PO Q8 pain 01/27/24 01/27/24 Rx #0 tabs ferrous sulfate 325 mg (65 mg 325 mg PO DAILY@1200 30 days #30 02/03/24 Unknown Rx iron) tablet (FeroSul) tabs magnesium chloride 64 mg 128 mg (2 x 64 mg) PO DAILY 30 02/03/24 Unknown Rx (magnesium chloride) days #60 tabs tablet,delayed release (Mag 64) oxycodone 5 mg tablet 10 mg (2 x 5 mg) PO Q4H PRN PRN 02/03/24 Unknown Rx Pain Score 4-10 7 days #84 tabs sennosides 8.6 mg-docusate sodium 2 tab PO DAILY 30 days #60 tabs 02/03/24 Unknown Rx 50 mg tablet (Stimulant Laxative Plus) tramadol 50 mg tablet 50 mg PO Q8H PRN PRN PAIN 1-3 7 02/03/24 Unknown Rx days #21 tabs cranberry fruit concentrate 1 tab PO DAILY 03/07/24 Unknown History sertraline 25 mg tablet 25 mg PO DAILY 03/07/24 Unknown History warfarin 2 mg tablet 4 mg PO DAILY 03/07/24 Unknown History tizanidine 4 mg tablet 4 mg PO QHS PRN PRN muscle spasm 03/09/24 Unknown History Allergy/AdvReac Type Severity Reaction Status Date / Time benazepril (From Lotensin) Allergy Mild DOESNT Verified 03/07/24 20:46 REMEMBER quinapril (From Accupril) Allergy Mild UNKNOWN Verified 03/07/24 20:46 Sulfa (Sulfonamide Allergy Mild Hives Verified 03/07/24 20:46 Antibiotics) verapamil (From [place]) Allergy Mild UNKNOWN Verified 03/07/24 20:46 Surgical History History of femoropopliteal bypass S/P carotid endarterectomy Social History Smoking Status: Never smoker Review of Systems (Anesthesia) ROS Narrative System reviewed and no additional complaints, except as documented.
--- NOTE | 2024-03-15 13:30 | AMP_PTH ---
PATIENT: JAROD PRITCHARD LOC: [facility] U#:[id number] AGE/SX: 83/F ROOM: [facility] RE03/08/[address]: Dr. Jaimie Vargas MD : 1940 BED: 1 DIS: 03/19/2024 SPEC #: [id number] RECD: 03/15/24 18:13 STATUS: ROBY REQ #: [id number] DIANA: 03/15/24 13:[address]: Eugene Blanca DEPT: SURGICAL PATHOLOGY RECD BY: Ivonne Jensen ENTERED: 03/16/24 07:33 SP TYPE: Amputation OTHR DR: DO Dr. Shaan Quintero MD Dr. Jeffrey Wunning, DPM MD Dr. Doron Gomez DO Dr. Prakash Chand, MD Dr. 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 Bone with mild acute and chronic osteomyelitis and reactive changes. 03/21/2024 MICROSCOPIC DESCRIPTION Slides are reviewed. GROSS DESCRIPTION Received in fixative is one container labeled with the patient's name and designated Right forefoot. The specimen consists of forefoot amputation including all five toes measuring 8.0 x 9.5 x 3.0cm. Dorsal surface of the great toe and third and fourth toe shows extensive area of ulceration with brownish-black gangrenous necrosis. Nails are also discolored. Also present in the container are detached pieces of soft tissue measuring in aggregate 5.0 x 5.0 x 1.0cm. Also present in the container is a detached piece of bone measuring 1.5 x 1.2 x 0.2cm. Photogrammetric Surveyor sections are submitted in seven cassettes as follows: 1- ulcerated necrotic area from toes, 2- detached pieces of tissue, 3- detached pieces of bone after decalcification, 4-7- bone from toes SJ.mr 03/16/2024 TC:2 CPT:37483,89874
[2024-03-15] MEDS: Vancomycin IV 1,000 MG/200 ML BAG 200 MG IV (14:52)
[2024-03-15] MEDS: Bupivacaine Mpf 0.5% 30 ML VIAL (15:30)
--- NOTE | 2024-03-15 16:28 | PCM.POST.ANE ---
Anesthesia: Postop Eval I Current Vital Signs Temperature: 97.3 F Pulse Rate: 91 Blood Pressure: 149/80 Respiratory Rate: 16 Pulse Ox: 98 Oxygen Delivery Method: Room Air Assessment Airway patent: Yes Spontaneous unlabored respirations: Yes Mental status: Awake and Calm nausea: No Vomiting: No Anesthesia Complication: No Fluid Hydration Crystalloid volume administer (ml): 600 Total IV fluid infused: 600 Progress Note Anesthesia document: Postop Eval 1 completed: Yes
--- NOTE | 2024-03-15 16:29 | OP.PCM_ITS ---
Operative Report (Standard) Operative Information Surgery/Procedure Performed: Transmetatarsal amputation, right foot Surgeon: Eugene Blanca Date of Procedure: 03/15/24 Procedure Start Time: 15:12 Procedure Stop Time: 16:12 Pre-Operative Diagnosis: Gangrene right forefoot Post-Operative Diagnosis: Same Select all DRAINS/GRAFTS/IMPLANTS that apply: None Type of Anesthesia: General and Local Estimated Blood Loss: 30mL Specimen collected: Yes Description of specimen(s) removed: Right forefoot sent to pathology Description of surgery: Indications: 52 year old female with history of significant peripheral vascular disease s/p right LE by pass surgery x 2, has forefoot gangrene to 1,2,3,4 toes. Discussed options with patient and she elected to proceed with transmetatarsal amputation right foot. Discussed procedure with patient, reviewed possible benefits vs risks, goals and expectations. Advised patient the risks include but not limited to pain, bleeding, blood clots, deformity, difficultly with shoes and walking, delayed healing, nonhealing, need for further surgery, loss of limb, loss of life. Patient expressed understanding and was able to repeat back. The consent form was reviewed with her and she freely signed it. Reviewed with Dr. Rojas, and patient's vascular status has been optimized. No guarantees or warranties were given nor implied to the patient. Operative Procedure: The patient was brought back to the operating room and was placed on the operating room table in the supine position. She was carefully secured to the operating room table with a safety belt around her waist. The patient received general anesthesia per the anesthesia team. A total of 20mL of 0.5% Bupivacaine plain was given as a local block around patient's right foot after the overlying skin was cleansed with 70% Isopropyl alcohol. The patient's right foot was scrubbed, prepped, and draped in the usual aseptic fashion. No tourniquet was used for this procedure. Also of note the patient is already on IV antibiotic therapy - with Infectious Disease on consult. Further attention was directed to patient's right foot, there again was noted to be dry gangrene to the dorsal 1st toe and the entire right 3rd toe dorsally, also there were small areas of dry eschars/gangrene to 2nd and 4th toes as well. There was no cellulitis or drainage. A timeout was performed and the patient was properly identified and the surgical plain was confirmed. Using a 15 scalpel blade an incision was made down to bone around the right forefoot proximal to the gangrenous changes, careful dissection was completed down to the necks of the metatarsals and the necks of the metatarsals were visualized and osteotomies were made to 1,2,3,4,5 metatarsal necks using a powered sagittal saw maintaining the normal parabola of the foot. The bone was hard, white and appeared free of infection. The right forefoot was excised in a way a full thickness dorsal and plantar flap were created using a 15 blade. There was bleeding but noted to be less than normal consistent with patient's peripheral vascular disease. The tissues at the amputation site did appear healthy, viable and free of infection. The resected forefoot tissue was sent to pathology for further evaluation. The site was flushed with copious amounts of normal saline solution. The dorsal and plantar skin flaps were reapproximated using 3-0 Prolene. The flaps were noted to be healthy and viable with normal temperature, normal color and CFT < 3 seconds. A dressing was applied which consisted of betadine soaked adaptic, 4x4 gauze, abd pad, and kerlix in noncompressive fashion. The patient tolerated the procedure well and anesthesia well with no complications. She was transported from the operating room to the recovery room with vital signs stable and good condition. The patient will be followed as an inpatient. Surgical Findings: see above Quarter Section Ironer deep tissue massage therapist: No Complications Complications: No
[2024-03-15] MEDS: Losartan Potassium 50 MG Tablet PO (17:25)
[2024-03-15] MEDS: Metoprolol(XL)Succ 25 MG Tablet PO (17:25)
[2024-03-15] MEDS: Lactobacillis Acidophilus 1 CAP PO ×2 (17:25→20:44)
--- NOTE | 2024-03-15 17:45 | RAD_ITS ---
STUDY: X-RAY - RIGHT FOOT CLINICAL: Female, 83 years old. Post op. TECHNIQUE: 3 views of the right foot. COMPARISON: Right foot radiographs dated 03/07/2024. FINDINGS: Normal talus, calcaneus, and tarsal bones. Normal visualized subtalar, talonavicular, calcaneocuboid, tarsal and tarsometatarsal articulations. There is new transmetatarsal amputation through the distal shafts of the first through fifth metatarsals. RAD/Foot min 3 Views IMPRESSION: New transmetatarsal amputation through the distal shafts of the first through fifth metatarsals. Electronically Signed: Clayton Wilhelm MD at 8:08 EST ,
[2024-03-15 17:48] LABS: Bedside Glucose 130 mg/dL (74-106)
[2024-03-15] MEDS: HYDROmorphone 0.5 MG/0.5 ML SYRINGE IV (20:39)
[2024-03-15] MEDS: Atorvastatin Calcium 20 MG Tablet PO (20:44)
[2024-03-15 22:20] LABS: Bedside Glucose 137 mg/dL (74-106)
[2024-03-15] MEDS: Acetaminophen 325 MG Tablet 650 MG PO (23:16)
[2024-03-16] VITALS (8 sets, daily range): BP systolic 88–127; BP diastolic 44–79; PULSE 71–91; RESP 16–18; TEMP 36.2–36.8; O2SAT 94–99; BMI 26.0
[2024-03-16] MEDS: HYDROmorphone 0.5 MG/0.5 ML SYRINGE IV ×3 (00:16→13:38)
[2024-03-16] MEDS: Piperacil/Tazobactam 3.375 GM in 0.9% Normal Saline (50mL MB+) 50 ML IV ×3 (05:07→21:41)
[2024-03-16] MEDS: oxyCODONE 5 MG Tablet 10 MG PO ×4 (06:25→20:18)
[2024-03-16 07:07] LABS: Bedside Glucose 131 mg/dL (74-106)
--- NOTE | 2024-03-16 08:46 | ANES.CONFIRM ---
Anesthesia: Confirm Documents Multiple Procedures on Account (2) Confirmed Documents: Yes
[2024-03-16] MEDS: Lactobacillis Acidophilus 1 CAP PO ×4 (09:47→21:48)
[2024-03-16] MEDS: Spironolactone 25 MG Tablet 12.5 MG PO (09:48)
[2024-03-16] MEDS: Furosemide 40 MG Tablet PO (09:54)
[2024-03-16] MEDS: Magnesium Chloride 64 MG Delay Rel.Tablet 128 MG PO (09:54)
[2024-03-16] MEDS: Clopidogrel Bisulfate 75 MG Tablet PO (09:55)
[2024-03-16] MEDS: Tolterodine Tartrate 2 MG CAP.SA PO (09:56)
--- NOTE | 2024-03-16 11:40 | WOUNDNOTE ---
wound photo: right medial lower leg
--- NOTE | 2024-03-16 11:41 | WOUNDNOTE ---
wound photo: right foot
--- NOTE | 2024-03-16 11:43 | WOUNDNOTE ---
wound photo: right foot
--- NOTE | 2024-03-16 12:21 | PN.HOSP_ITS ---
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 (03/08/24) Overweight (03/08/24) Dilated cardiomyopathy (03/08/24) Atherosclerosis of [place] arteries of extremities with gangrene, unspecified extremity (03/08/24) Peripheral vascular disease, unspecified (03/08/24) Gangrene, not elsewhere classified (03/08/24) Cellulitis of right toe (03/08/24) Primary osteoarthritis, unspecified site (03/08/24) Other acute osteomyelitis, right ankle and foot (03/08/24) Other malaise (03/08/24) Contusion of unspecified lower leg, initial encounter (03/08/24) Other specified postprocedural states (03/08/24) Subjective Subjective Patient was seen and examined today, she does not appear to be in any distress, I received text from vascular surgery today, they are going to start her back on higher strength heparin drip and then transition to Lovenox. I decided to place the patient on Coumadin which she was on as an outpatient, and will take several days for this to affect the INR. We are currently awaiting for approval for patient to go to an extended care facility for short-term rehab services Objective Data Objective Data Vital Signs: Vital Signs Temp Pulse Resp BP Pulse Ox O2 Del Method O2 Flow Rate 97.8 F 91 18 99/61 99 Room Air 2 03/16/24 11:04 03/16/24 11:04 03/16/24 11:04 03/16/24 11:04 03/16/24 11:04 03/16/24 11:04 03/15/24 13:26 Oxygen Flow Rate (L/min) 2 Oxygen Delivery Method Room Air Weight: 66.7 kg Body Mass Index (BMI) 26.0 Intake & Output: Intake and Output for Last 24 Hours 03/14/24 03/15/24 03/16/24 23:59 23:59 23:59 Intake Total 690.00 / 690.00 719.65 / 959.65 595.9 / 595.9 Output Total 2700 / 2700 1475 / 1675 400 / 400 Balance -2010.00 / -2010.00 -755.35 / -715.35 195.9 / 195.9 Lab / Micro Data 03/15/24 05:23 03/15/24 05:23 Labs: Laboratory Results - last 24 hr 03/12/24 20:51: Crossmatch See Detail 03/15/24 17:24: POC Glucose 130 H 03/15/24 21:09: POC Glucose 137 H 03/16/24 06:16: POC Glucose 131 H Micro: Microbiology 03/07/24 22:50 Blood Culture (Wb) - Anticubital Left Blood Culture - Final No growth in 5 days. Radiography Diagnostic Testing: Radiology Impression Foot X-Ray 03/15/24 17:45 IMPRESSION: New transmetatarsal amputation through the distal shafts of the first through fifth metatarsals. Electronically Signed: Clayton Wilhelm MD at 8:08 EST Reading Location ID and State: [facility] / [place] , Service support , Physical Exam Narrative alert, oriented x 3, no apparent distress and healthy appearing Constitutional Narrative: Patient is alert General Appearance: cooperative, well kempt and well developed Orientation / Consciousness: awake HEENT normocephalic, head/scalp atraumatic and moist oral mucous membranes Eyes PERRL, EOMs intact bilaterally and conjunctivae normal Neck supple, no JVD and thyroid normal General: trachea midline Resp normal respiratory effort, no retractions, no use of accessory muscles and clear to auscultation bilaterally Auscultation: Negative for rales, rhonchi or wheezes Cardio S1 normal heart sound, S2 normal heart sound, no murmurs, no rub and no gallops Cardio Narrative: Heart rate and rhythm is irregular GI normal to inspection, nondistended, normoactive bowel sounds, soft to palpation, non-tender and non-distended Extremity Extremity Narrative: Right leg is wrapped in surgical dressing from the upper thigh area down to the right ankle area, right foot is wrapped with surgical dressing this was not removed to examine the foot Neuro CN's II-XII intact bilaterally, moves all extremities, no focal motor deficits and no sensory deficits noted, patient is alert and oriented x 3 Sensorium / Orientation: awake Speech: speech normal Psych affect normal Assessment & Plan Assessment/Plan (1) Dry gangrene: (2) 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 Dry gangrene of the right foot secondary to peripheral vascular disease- patient appears medically stable at this time, patient will undergo transmetatarsal amputation today of the right foot, I talked to the patient briefly about inpatient skilled care when she is discharged from the hospital yesterday, I suspect she will need placement, patient states she has never used crutches before. #2 peripheral vascular disease-status post bypass right leg-patient appears to be doing well postop #3 factor V deficiency-patient's heparin drip has been restarted for full anticoagulation, patient will be transition to Lovenox and her Coumadin will be restarted today, I gave her a higher dose initially #4 type 2 diabetes-patient's blood sugars will be monitored, sliding scale insulin will be administered as needed #5 essential hypertension-patient will remain on her present medications #6 hyperlipidemia-patient is on simvastatin #7 chronic atrial fibrillation-patient is on rate control medications and normally on anticoagulation, again patient will be on full anticoagulation and her Coumadin was restarted today #8 acute blood loss anemia from hematoma of the right leg requiring blood transfusion, CBC will be monitored as needed Total clinical time spent by myself addressing the patient's medical issues, reviewing all her data, and collaborating with patient's care team: 35 minutes Charges/Coding Visit Charges Inpatient E&M: 38742 Subs Hosp L2
[2024-03-16] MEDS: HEPARIN/D5w 25,000 UNITS 25,000 UNITS/250 ML IV.SOLN. 10 UNITS CONT INF (13:00)
--- NOTE | 2024-03-16 13:11 | PCM.PN.SRG ---
Subjective Subjective Saw patient resting in bed finishing lunch with her at bedside. She is tearful reporting pain in her right foot and feeling overwhelmed by everything that happened this admission and thinking about having to participate in therapy etc. Discussed patient with wound care nurse Shellie. She change the dressings about an hour prior to my evaluation and reported that the right thigh and lower leg incision sites are looking good. Wound pictures reviewed. She noted moderate serosanguineous drainage from the left calf wound which is expected given it is loosely approximated with ellen. The TMA site is also looking favorable at this time, no excessive bleeding. She has just been on the continuous heparin at 300 units an hour overnight. Her hemoglobin was stable this morning. Objective Data Objective Data Vital Signs: Vital Signs Temp Pulse Resp BP Pulse Ox O2 Del Method O2 Flow Rate 97.8 F 91 18 99/61 99 Room Air 2 03/16/24 11:04 03/16/24 11:04 03/16/24 11:04 03/16/24 11:04 03/16/24 11:04 03/16/24 11:04 03/15/24 13:26 Oxygen Flow Rate (L/min) 2 Oxygen Delivery Method Room Air Weight: 147 lb 0.773 oz Body Mass Index (BMI) 26.0 Intake & Output: Intake and Output for Last 24 Hours 03/14/24 03/15/24 03/16/24 23:59 23:59 23:59 Intake Total 690.00 / 690.00 719.65 / 959.65 595.9 / 595.9 Output Total 2700 / 2700 1475 / 1675 400 / 400 Balance -2010.00 / -2010.00 -755.35 / -715.35 195.9 / 195.9 Lab / Micro Data 03/15/24 05:23 03/15/24 05:23 Labs: Laboratory Results - last 24 hr 03/12/24 20:51: Crossmatch See Detail 03/15/24 17:24: POC Glucose 130 H 03/15/24 21:09: POC Glucose 137 H 03/16/24 06:16: POC Glucose 131 H Micro: Microbiology 03/07/24 22:50 Blood Culture (Wb) - Anticubital Left Blood Culture - Final No growth in 5 days. Radiography Diagnostic Testing: Radiology Impression Foot X-Ray 03/15/24 17:45 IMPRESSION: New transmetatarsal amputation through the distal shafts of the first through fifth metatarsals. Electronically Signed: Clayton Wilhelm MD at 8:08 EST , Physical Exam Const alert, oriented x3 and no apparent distress General Appearance: cooperative HEENT normocephalic, hearing grossly normal bilaterally, external ears normal and external nose normal Eyes EOMs intact bilaterally General Eye: normal appearance of both eyes Neck General: normal visual inspection and trachea midline Resp normal respiratory effort, normal air movement, no retractions and no use of accessory muscles Effort and Inspection: able to speak in complete sentences Cardio Rate: tachycardic Extremity Extremity Narrative: Right leg and foot with dry dressings in place. No bleedthrough. + PT Doppler signal Minimal right lower extremity edema. 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 She is postop day #1 from right TMA by Dr. Blanca. Vascular exam is stable with good PT Doppler signal. No significant bleeding/drainage from the right lower extremity incision sites, will continue with dry dressings changed once daily or more often as needed to manage drainage. The ellen along the right lower leg incision are to remain in place for 2 weeks, will reassess and determine if appropriate to begin removal at that time as an outpatient/in TCU. Right thigh incision sites are closed with skin glue and Steri-Strips. Once Steri-Strips fall off no need to replace. From our perspective, okay for showers but no submerging wounds for at least 3 weeks. Hemoglobin has been stable. Will increase to therapeutic weight-based heparin drip today. As long as she does not have any significant bleeding through the afternoon then can transition to Lovenox for ultimate bridging back to her Coumadin. Will continue Plavix. From vascular surgery standpoint, once she is transitioned back to Lovenox patient is appropriate for discharge to TCU.
--- NOTE | 2024-03-16 13:32 | CASEMGMT ---
[facility] TCU is willing to take patient. SW notified patient and her . Will need insurance authorization for patient to go to TCU. CORNEL is checking with physicians to see if patient may be ready over the weekend. Christina WELDON
--- NOTE | 2024-03-16 13:34 | PCM.PN.ID ---
Physical Exam Narrative Feeling ok but had a lot of pain in foot last night. No fever. Const alert and no apparent distress General Appearance: cooperative Resp normal air movement and clear to auscultation bilaterally Cardio regular rate and regular rhythm GI soft to palpation, non-tender and non-distended Skin Skin Narrative: foot wrapped ID ID: Route of nutrition/ use of supplements: [] Nutritional Intake: [] IV Site: [] [place] Catheter: [] Assessment & Plan Assessment/Plan (1) Diabetic wet gangrene of the foot: PLAN: Cxs ngtd. TMA done 03/15/[address] Blanca. Cont vanc.zosyn. Ok to stop abx this weekend. Will follow, d/w primary team
[2024-03-16] MEDS: Sertraline 50 MG Tablet 25 MG PO (13:35)
[2024-03-16] MEDS: Ferrous Sulfate 325 MG Tablet PO (13:35)
[2024-03-16 13:51] LABS: Bedside Glucose 129 mg/dL (74-106)
[2024-03-16 13:57] LABS: Vancomycin, Trough Level 13.5 ug/mL (5.0-15.0)
[2024-03-16] MEDS: Metoprolol(XL)Succ 50 MG Tablet PO (14:05)
--- NOTE | 2024-03-16 14:58 | CHAPLAIN ---
Type of Pastoral Visit ___ Initial Visit _x__ Follow-up Visit ___ On-call Visit ___ General Patient Visit ___ Spiritual Assessment ___ Family Conference ___ Bereavement ___ Rapid Response ___ Code Blue ___ Other (describe below) Pastoral Care Referral From _x__ Patient ___ Family ___ Nurse ___ Physician ___ Manager Universal ___ [place] Supervisor Brick ___ Other (describe below) Sacrament/Intervention _x__ Active listening ___ Anointing ___ Judaism ___ Bereavement ___ Communion ___ Emmy exploration ___ ___ Life review _x__ Prayer ___ Reconciliation ___ Sacrament of Sick _x__ Supportive presence ___ Wedding ___ Other (describe below) Pastoral Comments patient had asked for a follow up visit; pt had her surgery yesterday to remove toes from her foot; pt speaks of her pain and shows it in her facial expressions; sat at bedside with the patient and her spouse; spouse is quiet and only talks when addressed and then with just one word answers; spouse is disengaged in any conversation; pt repeatedly states how much pain she is in and says over and over I'm sorry; student nurse, instructor, and floor nurse come into room and perform care and medical intervention; lots of listening to patient and helping her to refocus and to seek peaceful thinking and breathing; sat at bedside for a time in silence due to medical interventions taking place; affirmed patient who had become still and quiet during nursing procedures; offered a prayer and presence for a lengthy time
--- NOTE | 2024-03-16 15:21 | PCM.RX.CS ---
Consult Antibiotic Management Pharmacy has been consulted to manage selected antibiotic: Vancomycin Type of Intervention Type of Consult: Follow-up Labs Labs: Sodium 140 mmol/L (136-145) 03/15/24 05:23 Potassium 3.4 mmol/L (3.5-5.1) L 03/15/24 05:23 Chloride 110 mmol/L (98-107) H 03/15/24 05:23 Carbon Dioxide 26.0 mmol/L (21.0-32.0) 03/15/24 05:23 Anion Gap 4 (5-15) L 03/15/24 05:23 BUN 20 mg/dL (7-18) H 03/15/24 05:23 Creatinine 1.00 mg/dL (0.55-1.02) 03/15/24 05:23 Est GFR (MDRD) Af Amer 68 mL/min (>60) 03/15/24 05:23 Est GFR (MDRD) Non-Af 56 mL/min (>60) L 03/15/24 05:23 BUN/Creatinine Ratio 20.1 RATIO (10-20) H 03/15/24 05:23 Glucose 134 mg/dL (74-106) H 03/15/24 05:23 Vancomycin Trough 13.5 ug/mL (5.0-15.0) 03/16/24 13:12 Random Vancomycin 16.6 ug/mL (0.0-15.0) H 03/14/24 12:48 Microbiology Microbiology: Microbiology 03/07/24 22:50 Blood Culture (Wb) - Anticubital Left Blood Culture - Final No growth in 5 days. Pharmacy Plan for Drug Dosing Pharmacy Plan for Drug Dosing: VANCOMYCIN LEVEL RECEIVED Current Vancomycin Dose: 1000 MG Q24H Number of Doses Received: 2 Vancomycin Level: 13.5 ug/mL Hours Since Last Dose: 22.5 Renal Function: SCr: 1 Renal Function Trend: Stable Lab/Micro: Vancomycin Plan/Comments: Trough level came back at 13.5 ug/mL; below therapeutic level of 15-20. Increasing dose to 1250 mg q24h. Trough needed before third dose to be given 03/18/2024 1530 Pending Level: 03/18/2024 1500 Pharmacy Service will continue to monitor and adjust dosing as required. Follow-Up Labs Follow-Up Labs: Trough: Vancomycin Date/Time Labs Ordered Labs to be done on [date and time ordered]: 03/18/2024 1500
[2024-03-16] MEDS: Vancomycin HCl 1,250 MG in 0.9% Normal Saline (250mL Bag) 250 ML 167 MG IV (16:05)
[2024-03-16] MEDS: Metoprolol(XL)Succ 25 MG Tablet PO (16:08)
[2024-03-16] MEDS: Losartan Potassium 50 MG Tablet PO (16:09)
[2024-03-16] MEDS: Acetaminophen 325 MG Tablet 650 MG PO (16:11)
[2024-03-16 16:34] LABS: Bedside Glucose 140 mg/dL (74-106)
[2024-03-16 19:33] LABS: Partial Thromboplast Time 79.3 Seconds (24.1-36.2)
--- NOTE | 2024-03-16 21:10 | PCM.PROGNOTE ---
Subjective Subjective Patient was seen this afternoon for follow up on her right foot TMA, she is resting in bed and appears pain is controlled at this time. She relates she did have a lot of pain last night though. Her is at bedsite. She has no other complaints. Objective Data Objective Data Vital Signs: Vital Signs Temp Pulse Resp BP Pulse Ox O2 Del Method O2 Flow Rate 97.1 F L 88 16 109/67 95 Room Air 2 03/16/24 14:59 03/16/24 16:08 03/16/24 14:59 03/16/24 16:08 03/16/24 14:59 03/16/24 14:59 03/15/24 13:26 Oxygen Flow Rate (L/min) 2 Oxygen Delivery Method Room Air Weight: 66.7 kg Body Mass Index (BMI) 26.0 Intake & Output: Intake and Output for Last 24 Hours 03/14/24 03/15/24 03/16/24 23:59 23:59 23:59 Intake Total 690.00 / 690.00 719.65 / 959.65 920.9 / 920.9 Output Total 2700 / 2700 1475 / 1675 800 / 800 Balance -2010.00 / -2010.00 -755.35 / -715.35 120.9 / 120.9 Lab / Micro Data 03/15/24 05:23 03/15/24 05:23 Labs: Laboratory Results - last 24 hr 03/12/24 20:51: Crossmatch See Detail 03/15/24 21:09: POC Glucose 137 H 03/16/24 06:16: POC Glucose 131 H 03/16/24 13:12: Vancomycin Trough 13.5 03/16/24 13:31: POC Glucose 129 H 03/16/24 16:14: POC Glucose 140 H 03/16/24 19:07: APTT 79.3 H Micro: Microbiology 03/07/24 22:50 Blood Culture (Wb) - Anticubital Left Blood Culture - Final No growth in 5 days. Radiography Diagnostic Testing: Radiology Impression Foot X-Ray 03/15/24 17:45 IMPRESSION: New transmetatarsal amputation through the distal shafts of the first through fifth metatarsals. Electronically Signed: Clayton Wilhelm MD at 8:08 EST , Physical Exam Const alert, oriented x3 and no apparent distress Assessment & Plan Assessment/Plan (1) Black toe: (2) Acute osteomyelitis of right foot: PLAN: Plan Evaluation performed. Reviewed diagnostic data. s/p TMA right foot on 03/15/2024 - site appears appropriate at this time - continue with daily dressing changes - betadine soln, 4x4 gauze and kerlix. No weightbearing right foot. PAD: Followed by vascular surgery. She remains of IV antibiotics - ID on consult. Will continue to follow.
[2024-03-16] MEDS: Atorvastatin Calcium 20 MG Tablet PO (21:48)
[2024-03-16 23:33] LABS: Bedside Glucose 144 mg/dL (74-106)
[2024-03-17] VITALS (7 sets, daily range): BP systolic 96–137; BP diastolic 55–69; PULSE 60–100; RESP 16–18; TEMP 36.6–37.1; O2SAT 96–100; BMI 26.1
[2024-03-17] MEDS: HEPARIN/D5w 25,000 UNITS 25,000 UNITS/250 ML IV.SOLN. 10 UNITS CONT INF (01:20)
[2024-03-17 01:27] LABS: Partial Thromboplast Time 82.6 Seconds (24.1-36.2)
[2024-03-17] MEDS: oxyCODONE 5 MG Tablet 10 MG PO ×5 (04:04→22:48)
[2024-03-17] MEDS: Piperacil/Tazobactam 3.375 GM in 0.9% Normal Saline (50mL MB+) 50 ML IV ×2 (05:00→13:13)
[2024-03-17 07:17] LABS: Bedside Glucose 142 mg/dL (74-106)
[2024-03-17 08:19] LABS: Partial Thromboplast Time 85.5 Seconds (24.1-36.2)
[2024-03-17 08:24] LABS: International Normalized Ratio 1.3; Prothrombin Time (Protime)PT. 16.2 SECONDS (11.7-14.9)
--- NOTE | 2024-03-17 08:35 | PCM.PROGNOTE ---
Subjective Subjective Patient was seen this morning for follow up on right foot. She relates last night was better, not as much pain. She is resting in bed. No complaints of f/c/n/v. Objective Data Objective Data Vital Signs: Vital Signs Temp Pulse Resp BP Pulse Ox O2 Del Method O2 Flow Rate 97.8 F 94 18 134/59 H 96 Room Air 2 03/17/24 03:30 03/17/24 03:30 03/17/24 03:30 03/17/24 03:30 03/17/24 03:30 03/17/24 05:00 03/15/24 13:26 Oxygen Flow Rate (L/min) 2 Oxygen Delivery Method Room Air Weight: 66.9 kg Body Mass Index (BMI) 26.1 Intake & Output: Intake and Output for Last 24 Hours 03/15/24 03/16/24 03/17/24 23:59 23:59 23:59 Intake Total 719.65 / 959.65 920.9 / 1070.9 326.50 / 326.50 Output Total 1475 / 1675 800 / 1050 250 / 250 Balance -755.35 / -715.35 120.9 / 20.9 76.50 / 76.50 Lab / Micro Data 03/15/24 05:23 03/15/24 05:23 Labs: Laboratory Results - last 24 hr 03/16/24 13:12: Vancomycin Trough 13.5 03/16/24 13:31: POC Glucose 129 H 03/16/24 16:14: POC Glucose 140 H 03/16/24 19:07: APTT 79.3 H 03/16/24 21:53: POC Glucose 144 H 03/17/24 01:06: APTT 82.6 H 03/17/24 06:32: POC Glucose 142 H 03/17/24 07:40: PT 16.2 H, INR 1.3, APTT 85.5 H Micro: Microbiology 03/07/24 22:50 Blood Culture (Wb) - Anticubital Left Blood Culture - Final No growth in 5 days. Physical Exam Narrative s/p TMA right foot, dorsal and plantar flaps normal temperature, viable, and CFT < 2 seconds, sutures well coapted and appears to be healing appropriately at this time, no evidence of complication. Const alert, oriented x3 and no apparent distress Assessment & Plan Assessment/Plan (1) Black toe: (2) Acute osteomyelitis of right foot: PLAN: Plan Evaluation performed. Reviewed diagnostic data. s/p TMA right foot on 03/15/2024 - site doing well at this time - continue with daily dressing changes - betadine soln, adaptic, 4x4 gauze and kerlix. No weightbearing right foot. PAD: Followed by vascular surgery. She remains of IV antibiotics - ID on consult. Will continue to follow.
[2024-03-17] MEDS: Lactobacillis Acidophilus 1 CAP PO ×4 (08:54→22:13)
[2024-03-17] MEDS: Magnesium Chloride 64 MG Delay Rel.Tablet 128 MG PO (08:54)
[2024-03-17] MEDS: Sertraline 50 MG Tablet 25 MG PO (08:55)
[2024-03-17] MEDS: Clopidogrel Bisulfate 75 MG Tablet PO (08:56)
[2024-03-17] MEDS: Spironolactone 25 MG Tablet 12.5 MG PO (08:56)
[2024-03-17] MEDS: Tolterodine Tartrate 2 MG CAP.SA PO (08:56)
[2024-03-17] MEDS: Furosemide 40 MG Tablet PO (08:57)
[2024-03-17] MEDS: Metoprolol(XL)Succ 50 MG Tablet PO (08:58)
[2024-03-17] MEDS: Insulin Lispro 100 UNIT/ML INSULN.PEN SC (11:27)
[2024-03-17] MEDS: Ferrous Sulfate 325 MG Tablet PO (11:29)
[2024-03-17 11:51] LABS: Bedside Glucose 172 mg/dL (74-106)
[2024-03-17] MEDS: LORazepam 0.5 MG Tablet PO (13:13)
--- NOTE | 2024-03-17 14:23 | PCM.PN.SRG ---
Subjective Subjective Saw the patient resting in bed. She still endorses significant pain at the right foot, though notes it is somewhat better today compared to yesterday. She states she was able to work with PT today and sit up at the edge of her bed, has not yet gotten up to the bedside chair but this is her goal for tomorrow. I discussed with nursing, they have been doing the oxycodone every 4 hours and able to minimize Dilaudid. They have not noticed any excessive bleeding through her dressings. Wanting to change the dressings this morning and they have not had to change since. Objective Data Objective Data Vital Signs: Vital Signs Temp Pulse Resp BP Pulse Ox O2 Del Method O2 Flow Rate 97.9 F 60 16 137/69 H 100 Room Air 2 03/17/24 08:48 03/17/24 08:58 03/17/24 08:48 03/17/24 08:48 03/17/24 08:48 03/17/24 09:01 03/15/24 13:26 Oxygen Flow Rate (L/min) 2 Oxygen Delivery Method Room Air Weight: 147 lb 7.828 oz Body Mass Index (BMI) 26.1 Intake & Output: Intake and Output for Last 24 Hours 03/15/24 03/16/24 03/17/24 23:59 23:59 23:59 Intake Total 719.65 / 959.65 920.9 / 1070.9 1040.55 / 1040.55 Output Total 1475 / 1675 800 / 1050 1050 / 1050 Balance -755.35 / -715.35 120.9 / 20.9 -9.45 / -9.45 Lab / Micro Data 03/15/24 05:23 03/15/24 05:23 Labs: Laboratory Results - last 24 hr 03/16/24 16:14: POC Glucose 140 H 03/16/24 19:07: APTT 79.3 H 03/16/24 21:53: POC Glucose 144 H 03/17/24 01:06: APTT 82.6 H 03/17/24 06:32: POC Glucose 142 H 03/17/24 07:40: PT 16.2 H, INR 1.3, APTT 85.5 H 03/17/24 11:26: POC Glucose 172 H Micro: Microbiology 03/07/24 22:50 Blood Culture (Wb) - Anticubital Left Blood Culture - Final No growth in 5 days. Physical Exam Const alert, oriented x3 and no apparent distress General Appearance: cooperative HEENT normocephalic, hearing grossly normal bilaterally, external ears normal and external nose normal Eyes EOMs intact bilaterally General Eye: normal appearance of both eyes Neck General: normal visual inspection and trachea midline Resp normal respiratory effort, normal air movement, no retractions and no use of accessory muscles Effort and Inspection: able to speak in complete sentences Cardio Rate: tachycardic Extremity Extremity Narrative: Right leg and foot with dry dressings in place. No bleedthrough. + PT Doppler signal Minimal right lower extremity edema. 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 She is postop day #2 from right TMA by Dr. Blanca. Vascular exam is stable with great PT Doppler signal. No significant bleeding/drainage from the right lower extremity incision sites, will continue with dry dressings changed once daily or more often as needed to manage drainage. The ellen along the right lower leg incision are to remain in place for 2 weeks, will reassess and determine if appropriate to begin removal at that time as an outpatient/in TCU. Right thigh incision sites are closed with skin glue and Steri-Strips. Once Steri-Strips fall off no need to replace. From our perspective, okay for showers but no submerging wounds for at least 3 weeks. She has tolerated therapeutic heparin drip without any excessive bleeding. Will transition to Lovenox 70 mg subcu twice daily today, order placed to start at 6 PM and discontinue heparin. From vascular surgery standpoint, once she is transitioned back to Lovenox patient is appropriate for discharge to TCU.
--- NOTE | 2024-03-17 15:12 | PN.HOSP_ITS ---
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 (03/08/24) Overweight (03/08/24) Dilated cardiomyopathy (03/08/24) Atherosclerosis of [place] arteries of extremities with gangrene, unspecified extremity (03/08/24) Peripheral vascular disease, unspecified (03/08/24) Gangrene, not elsewhere classified (03/08/24) Cellulitis of right toe (03/08/24) Primary osteoarthritis, unspecified site (03/08/24) Other acute osteomyelitis, right ankle and foot (03/08/24) Other malaise (03/08/24) Contusion of unspecified lower leg, initial encounter (03/08/24) Other specified postprocedural states (03/08/24) Subjective Subjective Patient was seen and examined today, patient still appears nervous, I have elected to place her on Ativan as needed every 8 hours for anxiety. Objective Data Objective Data Vital Signs: Vital Signs Temp Pulse Resp BP Pulse Ox O2 Del Method O2 Flow Rate 97.9 F 60 16 137/69 H 100 Room Air 2 03/17/24 08:48 03/17/24 08:58 03/17/24 08:48 03/17/24 08:48 03/17/24 08:48 03/17/24 09:01 03/15/24 13:26 Oxygen Flow Rate (L/min) 2 Oxygen Delivery Method Room Air Weight: 66.9 kg Body Mass Index (BMI) 26.1 Intake & Output: Intake and Output for Last 24 Hours 03/15/24 03/16/24 03/17/24 23:59 23:59 23:59 Intake Total 719.65 / 959.65 920.9 / 1070.9 1040.55 / 1040.55 Output Total 1475 / 1675 800 / 1050 1050 / 1050 Balance -755.35 / -715.35 120.9 / 20.9 -9.45 / -9.45 Lab / Micro Data 03/15/24 05:23 03/15/24 05:23 Labs: Laboratory Results - last 24 hr 03/16/24 16:14: POC Glucose 140 H 03/16/24 19:07: APTT 79.3 H 03/16/24 21:53: POC Glucose 144 H 03/17/24 01:06: APTT 82.6 H 03/17/24 06:32: POC Glucose 142 H 03/17/24 07:40: PT 16.2 H, INR 1.3, APTT 85.5 H 03/17/24 11:26: POC Glucose 172 H Micro: Microbiology 03/07/24 22:50 Blood Culture (Wb) - Anticubital Left Blood Culture - Final No growth in 5 days. Physical Exam Narrative alert, oriented x 3, no apparent distress and healthy appearing Constitutional Narrative: Patient is alert General Appearance: cooperative, well kempt and well developed Orientation / Consciousness: awake HEENT normocephalic, head/scalp atraumatic and moist oral mucous membranes Eyes PERRL, EOMs intact bilaterally and conjunctivae normal Neck supple, no JVD and thyroid normal General: trachea midline Resp normal respiratory effort, no retractions, no use of accessory muscles and clear to auscultation bilaterally Auscultation: Negative for rales, rhonchi or wheezes Cardio S1 normal heart sound, S2 normal heart sound, no murmurs, no rub and no gallops Cardio Narrative: Heart rate and rhythm is irregular GI normal to inspection, nondistended, normoactive bowel sounds, soft to palpation, non-tender and non-distended Extremity Extremity Narrative: Right leg is wrapped in surgical dressing from the upper thigh area down to the right ankle area, right foot is wrapped with surgical dressing this was not removed to examine the foot Neuro CN's II-XII intact bilaterally, moves all extremities, no focal motor deficits and no sensory deficits noted, patient is alert and oriented x 3 Sensorium / Orientation: awake Speech: speech normal Psych affect normal Assessment & Plan Assessment/Plan (1) Diabetic wet gangrene of the foot: (2) Dry gangrene: (3) 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 Dry gangrene of the right foot secondary to peripheral vascular disease- patient appears medically stable at this time, patient underwent a transmetatarsal amputation of the right foot, infectious diseases has stated that the patient's antibiotics can be stopped today. #2 peripheral vascular disease-status post bypass right leg-patient appears to be doing well postop #3 factor V deficiency-patient's heparin was to be switched to Lovenox today and she will receive additional warfarin #4 type 2 diabetes-patient's blood sugars will be monitored, sliding scale insulin will be administered as needed #5 essential hypertension-patient will remain on her present medications #6 hyperlipidemia-patient is on simvastatin #7 chronic atrial fibrillation-patient is on rate control medications and normally on anticoagulation, again patient will be on full anticoagulation and her Coumadin was restarted today #8 acute blood loss anemia from hematoma of the right leg requiring blood transfusion, CBC will be monitored as needed Total clinical time spent by myself addressing the patient's medical issues, reviewing all her data, and collaborating with patient's care team: 35 minutes Charges/Coding Visit Charges Inpatient E&M: 41953 Subs Hosp L2
[2024-03-17 15:13] LABS: Partial Thromboplast Time 78.3 Seconds (24.1-36.2)
[2024-03-17] MEDS: HYDROmorphone 0.5 MG/0.5 ML SYRINGE IV (15:22)
[2024-03-17] MEDS: 0.9% Saline Lock 10 ML Syringe IV ×3 (15:22→22:14)
[2024-03-17] MEDS: Acetaminophen 500 MG Tablet 1000 MG PO ×2 (15:43→22:12)
[2024-03-17] MEDS: Enoxaparin 80 MG/0.8 ML Syringe 70 MG SC (17:49)
[2024-03-17] MEDS: Metoprolol(XL)Succ 25 MG Tablet PO (17:51)
[2024-03-17 18:13] LABS: Bedside Glucose 108 mg/dL (74-106)
[2024-03-17] MEDS: Atorvastatin Calcium 20 MG Tablet PO (22:11)
[2024-03-17 22:36] LABS: Bedside Glucose 140 mg/dL (74-106)
[2024-03-18] VITALS (11 sets, daily range): BP systolic 104–135; BP diastolic 56–74; PULSE 85–100; RESP 14–18; TEMP 36.3–37.2; O2SAT 94–99; BMI 26.0
[2024-03-18] MEDS: Acetaminophen 500 MG Tablet 1000 MG PO ×3 (05:30→20:47)
[2024-03-18] MEDS: Enoxaparin 80 MG/0.8 ML Syringe 70 MG SC ×2 (05:31→17:25)
[2024-03-18] MEDS: oxyCODONE 5 MG Tablet 10 MG PO ×3 (05:34→16:13)
[2024-03-18 05:47] LABS: Absolute Lymphocyte Count 1.74 X10^3/uL (0.83-4.51); Absolute Neutrophil Count 3.2 X10^3/uL (2.0-7.7); Basophil# 0.03 X10^3/uL; Basophil% 0.5 % (0-1); Eosinophil# 0.15 X10^3/uL; Eosinophils% 2.6 % (0-5); Hematocrit 24.9 % (37-47); Hemoglobin 7.7 g/dL (12.0-15.0); Lymphocyte # 1.74 X10^3/ul (0.83-4.51); Mean Corp Hgb Conc 30.9 g/dL (32-36); Mean Corpuscular Hgb 30.2 pg (27.0-32.0); Mean Corpuscular Volume 97.6 fL (81-99); Mean Platelet Vol. 10.5 fl (6.2-12.0); Monocyte# 0.67 X10^3/uL; Monocyte% 11.6 % (0-10); NRBC Flagged by Analyzer 0.9 % (0-5); Neutrophil # 3.18 X10^3/uL (2.7-7.7); Neutrophil % 54.8 % (47-70); Platelet Count 229 K/mm3 (150-450); RBC Distribution Width CV 17.4 % (11.6-14.6); RBC Distribution Width SD 59.5 fl (35.1-43.9); Red Blood Count 2.55 M/mm3 (4.2-5.4); White Blood Count 5.8 K/mm3 (4.4-11.0)
[2024-03-18 05:49] LABS: International Normalized Ratio 1.9
[2024-03-18 07:11] LABS: Bedside Glucose 132 mg/dL (74-106)
[2024-03-18] MEDS: Sertraline 50 MG Tablet 25 MG PO (10:52)
[2024-03-18] MEDS: Spironolactone 25 MG Tablet 12.5 MG PO (10:53)
[2024-03-18] MEDS: Lactobacillis Acidophilus 1 CAP PO ×4 (10:53→20:47)
[2024-03-18] MEDS: Magnesium Chloride 64 MG Delay Rel.Tablet 128 MG PO (10:54)
[2024-03-18] MEDS: Furosemide 40 MG Tablet PO (10:54)
[2024-03-18] MEDS: Clopidogrel Bisulfate 75 MG Tablet PO (10:55)
[2024-03-18] MEDS: Tolterodine Tartrate 2 MG CAP.SA PO (10:55)
[2024-03-18] MEDS: Metoprolol(XL)Succ 50 MG Tablet PO (10:55)
--- NOTE | 2024-03-18 11:12 | PCM.PN.SRG ---
Subjective Subjective I saw Eri today up to the bedside chair. She reports her pain is better controlled today compared to yesterday. She had her lower extremity dressings changed early this morning and she reports that went well. Nursing reports no significant bleeding through the dressings and there is no significant bleeding on my exam later this morning either. Her hemoglobin was 7.7 this morning from 9.2 on 03/15. Objective Data Objective Data Vital Signs: Vital Signs Temp Pulse Resp BP Pulse Ox O2 Del Method O2 Flow Rate 98.4 F 85 14 135/71 H 97 Room Air 2 03/18/24 10:49 03/18/24 10:55 03/18/24 10:49 03/18/24 10:49 03/18/24 10:49 03/18/24 10:49 03/15/24 13:26 Oxygen Flow Rate (L/min) 2 Oxygen Delivery Method Room Air Weight: 147 lb 0.773 oz Body Mass Index (BMI) 26.0 Intake & Output: Intake and Output for Last 24 Hours 03/16/24 03/17/24 03/18/24 23:59 23:59 23:59 Intake Total 920.9 / 1070.9 1862.02 / 1862.02 Output Total 800 / 1050 1500 / 1500 Balance 120.9 / 20.9 362.02 / 362.02 Lab / Micro Data 03/18/24 04:00 03/15/24 05:23 Labs: Laboratory Results - last 24 hr 03/17/24 11:26: POC Glucose 172 H 03/17/24 14:40: APTT 78.3 H 03/17/24 17:47: POC Glucose 108 H 03/17/24 21:57: POC Glucose 140 H 03/18/24 04:00: WBC 5.8, RBC 2.55 L, Hgb 7.7 L, Hct 24.9 L, MCV 97.6, MCH 30.2, MCHC 30.9 L D, RDW Std Deviation 59.5 H, RDW Coeff of Kate 17.4 H, Plt Count 229, MPV 10.5, Immature Gran % (Auto) 0.500, Neut % (Auto) 54.8, Lymph % (Auto) 30.0, [place] % (Auto) 11.6 H, Eos % (Auto) 2.6, Baso % (Auto) 0.5, Absolute Neuts (auto) 3.2, Absolute Lymphs (auto) 1.74, Nucleated RBC % 0.9, PT 22.0 H, INR 1.9 03/18/24 06:52: POC Glucose 132 H Micro: Microbiology 03/07/24 22:50 Blood Culture (Wb) - Anticubital Left Blood Culture - Final No growth in 5 days. Physical Exam Const alert, oriented x3 and no apparent distress General Appearance: cooperative HEENT normocephalic, hearing grossly normal bilaterally, external ears normal and external nose normal Eyes EOMs intact bilaterally General Eye: normal appearance of both eyes Neck General: normal visual inspection and trachea midline Resp normal respiratory effort, normal air movement, no retractions and no use of accessory muscles Effort and Inspection: able to speak in complete sentences Cardio Rate: tachycardic Extremity Extremity Narrative: Right leg and foot with dry dressings in place. No bleedthrough. + PT Doppler signal Minimal right lower extremity edema. 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 She is postop day #3 from right TMA by Dr. Blanca. Vascular exam is stable with great PT Doppler signal. No significant bleeding/drainage from the right lower extremity incision sites, will continue with dry dressings changed once daily or more often as needed to manage drainage. The ellen along the right lower leg incision are to remain in place for 2 weeks, will reassess and determine if appropriate to begin removal at that time as an outpatient/in TCU. Right thigh incision sites are closed with skin glue and Steri-Strips. Once Steri-Strips fall off no need to replace. From our perspective, okay for showers but no submerging wounds for at least 3 weeks. Hemoglobin was 7.7 this morning. Will transfuse 1 unit PRBC with goal to keep hemoglobin greater than 8 given her recent bypass. She is on Lovenox, Coumadin has also been restarted and INR was 1.9 today.
[2024-03-18] MEDS: Ferrous Sulfate 325 MG Tablet PO (12:24)
[2024-03-18 12:43] LABS: Bedside Glucose 128 mg/dL (74-106)
[2024-03-18] MEDS: LORazepam 0.5 MG Tablet PO (16:16)
[2024-03-18 16:36] LABS: Bedside Glucose 129 mg/dL (74-106)
[2024-03-18] MEDS: Losartan Potassium 50 MG Tablet PO (17:23)
[2024-03-18] MEDS: Metoprolol(XL)Succ 25 MG Tablet PO (17:23)
[2024-03-18] MEDS: 0.9% Saline Lock 10 ML Syringe IV (20:47)
[2024-03-18] MEDS: Atorvastatin Calcium 20 MG Tablet PO (20:47)
[2024-03-18 21:13] LABS: Bedside Glucose 129 mg/dL (74-106)
[2024-03-19] VITALS (7 sets, daily range): BP systolic 122–140; BP diastolic 65–77; PULSE 80–110; RESP 16; TEMP 36.3–37.1; O2SAT 95–98; BMI 25.9
[2024-03-19] MEDS: oxyCODONE 5 MG Tablet 10 MG PO ×3 (03:17→16:43)
[2024-03-19] MEDS: Enoxaparin 80 MG/0.8 ML Syringe 70 MG SC ×2 (06:09→16:41)
[2024-03-19] MEDS: Acetaminophen 500 MG Tablet 1000 MG PO ×2 (06:10→13:57)
[2024-03-19 06:18] LABS: International Normalized Ratio 2.6; Prothrombin Time (Protime)PT. 27.8 SECONDS (11.7-14.9)
[2024-03-19 06:34] LABS: Bedside Glucose 128 mg/dL (74-106)
[2024-03-19 08:22] LABS: Anion Gap 9 (5-15); BUN 22 mg/dL (7-18); BUN/Creat Ratio 31.9 RATIO (10-20); Calcium,Total 8.8 mg/dL (8.5-10.1); Chloride 105 mmol/L (98-107); Creatinine, Serum 0.69 mg/dL (0.55-1.02); EST Glomerular Filtration Rate 86 mL/min (>60); Est Glom Filt Rate - Afr Amer 104 mL/min (>60); Estimated Creatinine Clearance 47.96 ml/min; Glucose 122 mg/dL (74-106); Potassium 3.3 mmol/L (3.5-5.1); Sodium Level 140 mmol/L (136-145)
[2024-03-19] MEDS: Lactobacillis Acidophilus 1 CAP PO ×3 (08:31→16:41)
[2024-03-19] MEDS: Spironolactone 25 MG Tablet 12.5 MG PO (08:31)
[2024-03-19] MEDS: Magnesium Chloride 64 MG Delay Rel.Tablet 128 MG PO (08:31)
[2024-03-19] MEDS: Metoprolol(XL)Succ 50 MG Tablet PO (08:32)
[2024-03-19] MEDS: Clopidogrel Bisulfate 75 MG Tablet PO (08:32)
[2024-03-19] MEDS: Furosemide 40 MG Tablet PO (08:32)
[2024-03-19 08:33] LABS: Hematocrit 28.3 % (37-47); Hemoglobin 9.2 g/dL (12.0-15.0); Mean Corp Hgb Conc 32.5 g/dL (32-36); Mean Corpuscular Hgb 30.2 pg (27.0-32.0); Mean Corpuscular Volume 92.8 fL (81-99); Mean Platelet Vol. 10.1 fl (6.2-12.0); Platelet Count 284 K/mm3 (150-450); RBC Distribution Width CV 18.4 % (11.6-14.6); RBC Distribution Width SD 60.3 fl (35.1-43.9); Red Blood Count 3.05 M/mm3 (4.2-5.4); White Blood Count 6.2 K/mm3 (4.4-11.0)
[2024-03-19] MEDS: Sertraline 50 MG Tablet 25 MG PO (08:33)
[2024-03-19] MEDS: Tolterodine Tartrate 2 MG CAP.SA PO (08:33)
[2024-03-19 08:36] LABS: Scan Indicated on CBC? Y/N NO
--- NOTE | 2024-03-19 09:48 | WOUNDNOTE ---
wound photo: left medial lower leg
--- NOTE | 2024-03-19 09:50 | WOUNDNOTE ---
wound photo: right medial thigh
--- NOTE | 2024-03-19 09:51 | WOUNDNOTE ---
wound photo: right foot
--- NOTE | 2024-03-19 09:52 | WOUNDNOTE ---
wound photo: right foot
--- NOTE | 2024-03-19 09:53 | WOUNDNOTE ---
wound photo: right foot
[2024-03-19] MEDS: Ferrous Sulfate 325 MG Tablet PO (10:57)
[2024-03-19] MEDS: Potassium Chloride Oral Tablet 20 MEQ 40 MEQ PO (10:57)
[2024-03-19] MEDS: Insulin Lispro 100 UNIT/ML INSULN.PEN SC (10:58)
--- NOTE | 2024-03-19 11:31 | CASEMGMT ---
Patient was approved to go to [facility]. SW will notify physician. Christina WELDON
--- NOTE | 2024-03-19 15:06 | PCM.TXEXTCAR ---
Diet Diet Order/Speech Therapy: 03/15/24 16:31 ADA [Diet: Consistent Carb - Calorie Controlled] Dietary Modifications:: Consistent Carbohydrate Type of Dietary Supplement:: Buster How many daily calories?: 1800 calorie Routine Orders/Code Status Suppository Type: Dulcolax 10mg Suppository Frequency: Daily PRN Routine Lab Work: CBC (2-3 days) and INR (1-2 days then routinely afterwards) Wound(s) right dorsal foot: Wound Type: Stasis Ulcer right foot (dorsal surface of toes): Wound Type: dry black eschar Dressing Change: betadine with dry dressing LEFT GROIN: Wound Type: Puncture RIGHT LEG, GROIN TO ANKLE: Wound Type: Surgical Incision rt inner thighs: Wound Type: Surgical Incision Dressing Change: dry dressings rt lower calf: Wound Type: Surgical Incision Dressing Change: Adaptic/dry dressing right foot: Wound Type: surgical incision s/p R TMA Dressing Change: betadine/Adaptic Therapies Physical Therapy: Eval and Treat Occupational Therapy: Eval and Treat Problem/Diagnosis (1) 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: Status: Acute Code(s): I70.269 - Atherosclerosis of [place] arteries of extremities with gangrene, unspecified extremity Plan ## 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 Patient seen in consultation by Dr. Blanca with podiatry as well as vascular surgery. Patient was placed on IV antibiotics and due to lack of improvement MRI obtained however this did not show any osteomyelitis. Patient taken for angiogram 03/12/2024 but this was unsuccessful, she subsequently went back to surgery due to bleeding and had evacuation of hematoma and revision with jump graft from prior femoropopliteal to PT with reversed GSV 2 compartment fasciotomy. Patient subsequently stabilized and had transmetatarsal amputation on the right foot 03/15/2024 and tolerated this well. Overall patient improved and antibiotics were stopped per ID recommendations. Patient participated with physical therapy and it was deemed she would benefit from placement so plan was for TCU. During hospitalization also of note given her factor V Leiden she was placed on full dose Lovenox Lovenox to bridge to Coumadin. On day of transfer to TCU INR 2.6, given patient therapeutic will DC Lovenox and will continue 4 mg of Coumadin. On day of discharge patient still having some aching and pain but overall doing well with no new acute complaints. Discharge instructions as follows: DISCHARGE INSTRUCTIONS PLEASE READ *Please take this with you to your next doctors appointment* -Please follow-up with Dr. Blanca upon discharge. Please call their office to schedule hospital follow-up appointment upon discharge. -Please follow-up with the vascular surgery office upon discharge. Please call their office to schedule hospital follow-up appointment upon discharge for 2 weeks - okay to shower but no leg submersion for at least 3 weeks -Nonweightbearing of right lower extremity -Daily dressing changes to right foot -Would recommend lab work ( CBC ) to check your hemoglobin in 2 to 3 days through your primary care physician's office. Please call their office upon discharge to obtain order for lab work. - you will need to have your INR checked in 1 to 2 days and then routinely afterward for any necessary adjustments. You indicated that you are using for milligrams of Coumadin daily prior to admission and you will be discharged on this dose - You will resume 4 mg of Coumadin daily and clopidogrel has also been added to your regimen - your Lasix were decreased to 40 daily and your metoprolol has been increased from 50 daily to 50 in the morning and 25 at dinnertime -Weigh yourself every day. A sudden weight gain can mean you are retaining fluid. Weigh yourself at the same time of day and in the same kind of clothes. Ideally, weigh yourself first thing in the morning after you empty your bladder, but before you eat breakfast. -Please call your physician if your weight goes up by more than 2 pounds in 1 day or 5 pounds in 1 week. This can be a sign that you are retaining more fluid than you should be. -Please call your primary care provider's office upon discharge to schedule a hospital follow up within 1 week. -For any concerning signs or symptoms please call 911 or proceed to the nearest emergency department Allergies/Procedures Done in Hospital Allergies benazepril (From Lotensin) Allergy (Mild, Verified 03/07/24 20:46) DOESNT REMEMBER quinapril (From Accupril) Allergy (Mild, Verified 03/07/24 20:46) UNKNOWN Sulfa (Sulfonamide Antibiotics) Allergy (Mild, Verified 03/07/24 20:46) Hives verapamil (From Calan) Allergy (Mild, Verified 03/07/24 20:46) UNKNOWN Procedures: - (03/15 R MARISABEL w/ Dr. Blanca. 03/12 angiogram unsuccessful attempt to cross PT w/ subsequent RLE hematoma evacuation and revision w/ graft from fem pop to PT and 2 compartment fasciotomy) Type of Care/Length of Stay Estimated LOS: Convalescent Care Less Than 30 days Type of Care Needed: Skilled Rehab Potential: Good Prognosis: Good Additional Orders/Day of Discharge Day of Discharge: 03/19/24 Dietary and Speech Recommendations Dietitian Recommendations/Changes: ADAT to [id number] diet to manage blood sugars Discharge Plan Admission Admit Date/Time: 03/08/24 00:17 Primary Reason for Your Visit: R foot pain Attending Provider: Jaimie Vargas Primary Care Provider: Kendra Lucio Consulting Providers: Suresh Merida; Sukhdev Hernandez; Van Ridley; Eugene Blanca; Shaan Rojas; Doron Wong Instructions Patient Instructions: ED Fall Prevention Additional Instructions / Restrictions: DISCHARGE INSTRUCTIONS PLEASE READ *Please take this with you to your next doctors appointment* -Please follow-up with Dr. Blanca upon discharge. Please call their office to schedule hospital follow-up appointment upon discharge. -Please follow-up with the vascular surgery office upon discharge. Please call their office to schedule hospital follow-up appointment upon discharge for 2 weeks - okay to shower but no leg submersion for at least 3 weeks -Nonweightbearing of right lower extremity -Daily dressing changes to right foot -Would recommend lab work ( CBC ) to check your hemoglobin in 2 to 3 days through your primary care physician's office. Please call their office upon discharge to obtain order for lab work. - you will need to have your INR checked in 1 to 2 days and then routinely afterward for any necessary adjustments. You indicated that you are using for milligrams of Coumadin daily prior to admission and you will be discharged on this dose - You will resume 4 mg of Coumadin daily and clopidogrel has also been added to your regimen - your Lasix were decreased to 40 daily and your metoprolol has been increased from 50 daily to 50 in the morning and 25 at dinnertime -Weigh yourself every day. A sudden weight gain can mean you are retaining fluid. Weigh yourself at the same time of day and in the same kind of clothes. Ideally, weigh yourself first thing in the morning after you empty your bladder, but before you eat breakfast. -Please call your physician if your weight goes up by more than 2 pounds in 1 day or 5 pounds in 1 week. This can be a sign that you are retaining more fluid than you should be. -Please call your primary care provider's office upon discharge to schedule a hospital follow up within 1 week. -For any concerning signs or symptoms please call 911 or proceed to the nearest emergency department Discharge Orders/Prescriptions Prescriptions: New clopidogrel 75 mg Tablet 75 mg PO DAILY Qty: 0 0RF metoprolol succinate 25 mg Tablet Extended Release 24 Hr 25 mg PO DINNER Qty: 0 0RF Continued acetaminophen 500 mg Tablet 1,000 mg PO Q8 Qty: 0 0RF sennosides-docusate sodium [Stimulant Laxative Plus] 8.6-50 mg Tablet 2 tab PO DAILY 30 Days Qty: 60 0RF ferrous sulfate [FeroSul] 325 mg (65 mg iron) Tablet 325 mg PO DAILY@1200 30 Days Qty: 30 0RF magnesium chloride [Mag 64] 64 mg Tablet,Delayed Release (Dr/Ec) 128 mg PO DAILY 30 Days Qty: 60 0RF oxybutynin chloride 10 mg tablet extended release 24hr 10 mg PO DAILY simvastatin 80 mg tablet 80 mg PO QHS fluticasone propionate 50 mcg/actuation spray,suspension 2 spray INTRANASAL DAILY PRN (Reason: nasal congestion) glimepiride 2 mg tablet 2 mg PO DAILY losartan 50 mg Tablet 50 mg PO DINNER 30 Days Qty: 30 2RF metoprolol succinate 50 mg tablet extended release 24 hr 50 mg PO DAILY 30 Days Qty: 30 2RF spironolactone 25 mg tablet 12.5 mg PO DAILY Qty: 30 2RF Rx Instructions: Hold for serum potassium more than 5.0 sertraline 25 mg tablet 25 mg PO DAILY warfarin 2 mg tablet 4 mg PO DAILY cranberry fruit concentrate 1 tab PO DAILY tizanidine 4 mg tablet 4 mg PO QHS PRN PRN (Reason: muscle spasm) oxycodone 5 mg Tablet 10 mg PO Q4H PRN PRN (Reason: Pain Score 4-10) 3 Days Qty: 36 0RF Changed furosemide 40 mg Tablet 40 mg PO DAILY 30 Days Qty: 60 2RF Discontinued tramadol 50 mg Tablet 50 mg PO Q8H PRN PRN (Reason: PAIN 1-3) 7 Days Qty: 21 0RF Referrals / Follow Up: Shaan Rojas MD [Med Staff - Active Staff] - Within 2 Weeks Eugene Blanac DPM [Med Staff - Active Staff] - Within 1 Week Kendra Lucio MD [Primary Care Provider] - Within 1 Week Disposition Disposition (needs filled in before D/C Order can be placed): [facility]
--- NOTE | 2024-03-19 15:45 | PCM.DC.SUM ---
Providers Date of Admission: 03/08/24 Date of Discharge: 03/19/24 Primary Care Physician: Dr. Kendra Lucio MD Consultations 03/08/24 01:03 Consult: Podiatry Routine Consulting Provider: Eugene Blanca Reason for Consult: Wet Gangrene, Osteomyeltis and Cellulitis after recent RLE vascular surgery EMERGENT Consult: No MD Notified: Yes Date Notified: 03/08/24 Time Notified: 00:23 Method of Notification: ED Physician Initiated 03/08/24 07:29 Consult: Onc/Wound/office support clerk Routine Comment: 03/08/24 08:53 Consult: Vascular Surgery Routine Consulting Provider: Shaan Rojas Reason for Consult: LE PVD EMERGENT Consult: No MD Notified: Yes Date Notified: 03/08/24 Time Notified: 08:53 Method of Notification: Verbal Comments:: discussed with COLTON Wetzel 03/09/24 08:02 Consult: Infectious Disease Routine Consulting Provider: Van Ridley Reason for Consult: ISCHEMIC and dry gangrene Right foot, CELLULIITS, Plan TMA EMERGENT Consult: No Notified: Yes Date Notified: 03/09/24 Time Notified: 08:02 Method of Notification: Verbal Reason For Visit: R foot cELLULITIS AND DRY GANGRENE TURNING Diagnosis Discharge Diagnosis (1) 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: Status: Acute Code(s): I70.269 - Atherosclerosis of [place] arteries of extremities with gangrene, unspecified extremity Plan ## 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 ## Factor V Leiden deficiency on Coumadin # Peripheral vascular disease status post femoropopliteal bypass to PT #Type 2 diabetes mellitus #HTN #depression/anxiety Medications at Discharge Home Medications oxybutynin chloride 10 mg tablet,extended release 24 hr 10 mg PO DAILY bladder 09/23/23 simvastatin 80 mg tablet 80 mg PO QHS cholesterol 09/23/23 fluticasone propionate 50 mcg/actuation nasal spray,suspension 2 spray intranasal DAILY PRN nasal congestion 12/31/23 glimepiride 2 mg tablet 2 mg PO DAILY dm 12/31/23 losartan 50 mg tablet 50 mg PO DINNER blood pressure 30 days #30 tabs 01/03/24 metoprolol succinate 50 mg tablet,extended release 24 hr 50 mg PO DAILY heart rate 1 month #30 tabs 01/03/24 spironolactone 25 mg tablet 12.5 mg (1/2 x 25 mg) PO DAILY water pill #30 tabs 01/03/24 acetaminophen 500 mg tablet 1,000 mg (2 x 500 mg) PO Q8 pain #0 tabs 01/27/24 ferrous sulfate 325 mg (65 mg iron) tablet (FeroSul) 325 mg PO DAILY@1200 30 days #30 tabs 02/03/24 magnesium chloride 64 mg (magnesium chloride) tablet,delayed release (Mag 64) 128 mg (2 x 64 mg) PO DAILY 30 days #60 tabs 02/03/24 sennosides 8.6 mg-docusate sodium 50 mg tablet (Stimulant Laxative Plus) 2 tab PO DAILY 30 days #60 tabs 02/03/24 cranberry fruit concentrate 1 tab PO DAILY 03/07/24 sertraline 25 mg tablet 25 mg PO DAILY 03/07/24 warfarin 2 mg tablet 4 mg PO DAILY 03/07/24 tizanidine 4 mg tablet 4 mg PO QHS PRN PRN muscle spasm 03/09/24 clopidogrel 75 mg tablet 75 mg PO DAILY #0 tabs 03/19/24 furosemide 40 mg tablet 40 mg PO DAILY water pill 30 days #60 tabs 03/19/24 metoprolol succinate 25 mg tablet,extended release 24 hr 25 mg PO DINNER #0 tabs 03/19/24 oxycodone 5 mg tablet 10 mg (2 x 5 mg) PO Q4H PRN PRN Pain Score 4-10 3 days #36 tabs 03/19/24 Hospital Course Procedures - ((03/15 [place] PETIT w/ Dr. Blanca. 03/12 angiogram unsuccessful attempt to cross PT w/ subsequent RLE hematoma evacuation and revision w/ graft from fem pop to PT and 2 compartment fasciotomy)) Summary of Care Provided Minutes Spent on Discharge: 35 Hospital Course: 83-year-old female history of diabetes, hypertension, factor V Leiden deficiency on Coumadin, history of dilated cardiomyopathy, history of carotid stenosis with endarterectomy who presented [facility] ED 03/07/2024 with right foot pain and discoloration. Patient seen in consultation by Dr. Blanca with podiatry as well as vascular surgery. Patient was placed on IV antibiotics and due to lack of improvement MRI obtained however this did not show any osteomyelitis. Patient taken for angiogram 03/12/2024 but this was unsuccessful, she subsequently went back to surgery due to bleeding and had evacuation of hematoma and revision with jump graft from prior femoropopliteal to PT with reversed GSV 2 compartment fasciotomy. Patient subsequently stabilized and had transmetatarsal amputation on the right foot 03/15/2024 and tolerated this well. Overall patient improved and antibiotics were stopped per ID recommendations. Patient participated with physical therapy and it was deemed she would benefit from placement so plan was for TCU. During hospitalization also of note given her factor V Leiden she was placed on full dose Lovenox Lovenox to bridge to Coumadin. On day of transfer to TCU INR 2.6, given patient therapeutic will DC Lovenox and will continue 4 mg of Coumadin. On day of discharge patient still having some aching and pain but overall doing well with no new acute complaints. Discharge instructions as follows: DISCHARGE INSTRUCTIONS PLEASE READ *Please take this with you to your next doctors appointment* -Please follow-up with Dr. Blanca upon discharge. Please call their office to schedule hospital follow-up appointment upon discharge. -Please follow-up with the vascular surgery office upon discharge. Please call their office to schedule hospital follow-up appointment upon discharge for 2 weeks - okay to shower but no leg submersion for at least 3 weeks -Nonweightbearing of right lower extremity -Daily dressing changes to right foot -Would recommend lab work ( CBC ) to check your hemoglobin in 2 to 3 days through your primary care physician's office. Please call their office upon discharge to obtain order for lab work. - you will need to have your INR checked in 1 to 2 days and then routinely afterward for any necessary adjustments. You indicated that you are using for milligrams of Coumadin daily prior to admission and you will be discharged on this dose - You will resume 4 mg of Coumadin daily and clopidogrel has also been added to your regimen - your Lasix were decreased to 40 daily and your metoprolol has been increased from 50 daily to 50 in the morning and 25 at dinnertime -Weigh yourself every day. A sudden weight gain can mean you are retaining fluid. Weigh yourself at the same time of day and in the same kind of clothes. Ideally, weigh yourself first thing in the morning after you empty your bladder, but before you eat breakfast. -Please call your physician if your weight goes up by more than 2 pounds in 1 day or 5 pounds in 1 week. This can be a sign that you are retaining more fluid than you should be. -Please call your primary care provider's office upon discharge to schedule a hospital follow up within 1 week. -For any concerning signs or symptoms please call 911 or proceed to the nearest emergency department Physical Exam Narrative General: Alert, oriented, no apparent distress HEENT: Atraumatic, normocephalic Eyes: Anicteric, normal conjunctiva, extraocular movements grossly intact Neck: Supple Respiratory: Clear to auscultation bilaterally, normal respiratory effort Cardiovascular: Regular rate and rhythm GI: Soft, nontender, nondistended Extremities: No edema Musculoskeletal: Moving all extremities Neuro: No overt focal neurological deficits Skin: No rashes appreciated, foot is wrapped Psych: Cooperative Weight / BMI Weight Weight: 66.5 kg Body Mass Index (BMI) 25.9 ABG / Lab / Microbiology Data 03/19/24 05:08 03/19/24 05:08 Laboratory: Laboratory Results - last 24 hr 03/18/24 11:25: Blood Type A POSITIVE, Antibody Screen NEGATIVE, Crossmatch See Detail 03/18/24 16:18: POC Glucose 129 H 03/18/24 20:40: POC Glucose 129 H 03/19/24 05:08: WBC 6.2, RBC 3.05 L, Hgb 9.2 L, Hct 28.3 L, MCV 92.8, MCH 30.2, MCHC 32.5 D, RDW Std Deviation 60.3 H, RDW Coeff of Kate 18.4 H, Plt Count 284, MPV 10.1, PT 27.8 H, INR 2.6, Sodium 140, Potassium 3.3 L, Chloride 105, Carbon Dioxide 26.0, Anion Gap 9, BUN 22 H, Creatinine 0.69, Estim Creat Clear Calc 47.96, Est GFR (MDRD) Af Amer 104, Est GFR (MDRD) Non-Af 86, BUN/Creatinine Ratio 31.9 H, Glucose 122 H, Calcium 8.8 03/19/24 06:13: POC Glucose 128 H Microbiology: Microbiology 03/07/24 22:50 Blood Culture (Wb) - Anticubital Left Blood Culture - Final No growth in 5 days. D/C Instructions Discharge Diet: - (Carb consistent, calorie controlled) Discharge Activity: - (Not weightbearing right lower extremity) Meaningful Use Info Meaningful Use Meaningful Use Diagnoses (Choose all that apply): None applicable Ischemic Stroke Statin Dosing Therapy Reference: STATIN DOSE THERAPY REFERENCE: * Patients > 75 years receive moderate or high dose statin therapy. * Patients 75 years or YOUNGER should receive HIGH intensity statin dose unless contraindicated. You will be required to document reason for non-treatment if statin daily dose does not meet guidelines. HIGH DOSE STATIN THERAPY DAILY Atorvastatin > than or = to 40 mg Rosuvastatin > than or = to 20 mg Amlodipine + Atorvastatin > than or = to 2.5/40 mg Ezetimibe + Simvastatin 10/80 mg Simvastatin 80mg Discharge Plan Admission Admit Date/Time: 03/08/24 00:17 Primary Reason for Your Visit: R foot pain Attending Provider: Jaimie Vargas Primary Care Provider: Kendra Lucio Consulting Providers: Suresh Merida; Sukhdev Hernandez; Van Ridley; Eugene Blanca; Shaan Rojas; Doron Wong Instructions Patient Instructions: ED Fall Prevention Additional Instructions / Restrictions: DISCHARGE INSTRUCTIONS PLEASE READ *Please take this with you to your next doctors appointment* -Please follow-up with Dr. Blanca upon discharge. Please call their office to schedule hospital follow-up appointment upon discharge. -Please follow-up with the vascular surgery office upon discharge. Please call their office to schedule hospital follow-up appointment upon discharge for 2 weeks - okay to shower but no leg submersion for at least 3 weeks -Nonweightbearing of right lower extremity -Daily dressing changes to right foot -Would recommend lab work ( CBC ) to check your hemoglobin in 2 to 3 days through your primary care physician's office. Please call their office upon discharge to obtain order for lab work. - you will need to have your INR checked in 1 to 2 days and then routinely afterward for any necessary adjustments. You indicated that you are using for milligrams of Coumadin daily prior to admission and you will be discharged on this dose - You will resume 4 mg of Coumadin daily and clopidogrel has also been added to your regimen - your Lasix were decreased to 40 daily and your metoprolol has been increased from 50 daily to 50 in the morning and 25 at dinnertime -Weigh yourself every day. A sudden weight gain can mean you are retaining fluid. Weigh yourself at the same time of day and in the same kind of clothes. Ideally, weigh yourself first thing in the morning after you empty your bladder, but before you eat breakfast. -Please call your physician if your weight goes up by more than 2 pounds in 1 day or 5 pounds in 1 week. This can be a sign that you are retaining more fluid than you should be. -Please call your primary care provider's office upon discharge to schedule a hospital follow up within 1 week. -For any concerning signs or symptoms please call 911 or proceed to the nearest emergency department Discharge Orders/Prescriptions Prescriptions: New clopidogrel 75 mg Tablet 75 mg PO DAILY Qty: 0 0RF metoprolol succinate 25 mg Tablet Extended Release 24 Hr 25 mg PO DINNER Qty: 0 0RF Continued acetaminophen 500 mg Tablet 1,000 mg PO Q8 Qty: 0 0RF sennosides-docusate sodium [Stimulant Laxative Plus] 8.6-50 mg Tablet 2 tab PO DAILY 30 Days Qty: 60 0RF ferrous sulfate [FeroSul] 325 mg (65 mg iron) Tablet 325 mg PO DAILY@1200 30 Days Qty: 30 0RF magnesium chloride [Mag 64] 64 mg Tablet,Delayed Release (Dr/Ec) 128 mg PO DAILY 30 Days Qty: 60 0RF oxybutynin chloride 10 mg tablet extended release 24hr 10 mg PO DAILY simvastatin 80 mg tablet 80 mg PO QHS fluticasone propionate 50 mcg/actuation spray,suspension 2 spray INTRANASAL DAILY PRN (Reason: nasal congestion) glimepiride 2 mg tablet 2 mg PO DAILY losartan 50 mg Tablet 50 mg PO DINNER 30 Days Qty: 30 2RF metoprolol succinate 50 mg tablet extended release 24 hr 50 mg PO DAILY 30 Days Qty: 30 2RF spironolactone 25 mg tablet 12.5 mg PO DAILY Qty: 30 2RF Rx Instructions: Hold for serum potassium more than 5.0 sertraline 25 mg tablet 25 mg PO DAILY warfarin 2 mg tablet 4 mg PO DAILY cranberry fruit concentrate 1 tab PO DAILY tizanidine 4 mg tablet 4 mg PO QHS PRN PRN (Reason: muscle spasm) oxycodone 5 mg Tablet 10 mg PO Q4H PRN PRN (Reason: Pain Score 4-10) 3 Days Qty: 36 0RF Changed furosemide 40 mg Tablet 40 mg PO DAILY 30 Days Qty: 60 2RF Discontinued tramadol 50 mg Tablet 50 mg PO Q8H PRN PRN (Reason: PAIN 1-3) 7 Days Qty: 21 0RF Referrals / Follow Up: Shaan Rojas MD [Med Staff - Active Staff] - Within 2 Weeks Eugene Blanca DPM [Med Staff - Active Staff] - Within 1 Week Kendra Lucio MD [Primary Care Provider] - Within 1 Week Disposition Disposition (needs filled in before D/C Order can be placed): [facility] Facility Charges/Coding Visit Charges Inpatient E&M: 69815 Disch Hosp >30min
--- NOTE | 2024-03-19 15:54 | PHA.DC.MR.R ---
Pharmacy [facility] Med Reconciliation Pharmacy Service has performed discharge medication reconciliation for this patient. The patient's discharge medication list was reviewed for discrepancies and discrepancies were resolved. Medications at Discharge Home Medications oxybutynin chloride 10 mg tablet,extended release 24 hr 10 mg PO DAILY bladder 09/23/23 simvastatin 80 mg tablet 80 mg PO QHS cholesterol 09/23/23 fluticasone propionate 50 mcg/actuation nasal spray,suspension 2 spray intranasal DAILY PRN nasal congestion 12/31/23 glimepiride 2 mg tablet 2 mg PO DAILY dm 12/31/23 losartan 50 mg tablet 50 mg PO DINNER blood pressure 30 days #30 tabs 01/03/24 metoprolol succinate 50 mg tablet,extended release 24 hr 50 mg PO DAILY heart rate 1 month #30 tabs 01/03/24 spironolactone 25 mg tablet 12.5 mg (1/2 x 25 mg) PO DAILY water pill #30 tabs 01/03/24 acetaminophen 500 mg tablet 1,000 mg (2 x 500 mg) PO Q8 pain #0 tabs 01/27/24 ferrous sulfate 325 mg (65 mg iron) tablet (FeroSul) 325 mg PO DAILY@1200 30 days #30 tabs 02/03/24 magnesium chloride 64 mg (magnesium chloride) tablet,delayed release (Mag 64) 128 mg (2 x 64 mg) PO DAILY 30 days #60 tabs 02/03/24 sennosides 8.6 mg-docusate sodium 50 mg tablet (Stimulant Laxative Plus) 2 tab PO DAILY 30 days #60 tabs 02/03/24 cranberry fruit concentrate 1 tab PO DAILY 03/07/24 sertraline 25 mg tablet 25 mg PO DAILY 03/07/24 warfarin 2 mg tablet 4 mg PO DAILY 03/07/24 tizanidine 4 mg tablet 4 mg PO QHS PRN PRN muscle spasm 03/09/24 clopidogrel 75 mg tablet 75 mg PO DAILY #0 tabs 03/19/24 furosemide 40 mg tablet 40 mg PO DAILY water pill 30 days #60 tabs 03/19/24 metoprolol succinate 25 mg tablet,extended release 24 hr 25 mg PO DINNER #0 tabs 03/19/24 oxycodone 5 mg tablet 10 mg (2 x 5 mg) PO Q4H PRN PRN Pain Score 4-10 3 days #36 tabs 03/19/24
[2024-03-19] MEDS: Losartan Potassium 50 MG Tablet PO (16:42)
[2024-03-19] MEDS: Metoprolol(XL)Succ 25 MG Tablet PO (16:43)
[2024-03-19 16:54] LABS: Bedside Glucose 186 mg/dL (74-106)
--- NOTE | 2024-03-19 17:01 | NURSING ---
report called and given to Crystal in TCU
[2024-03-19 17:04] LABS: Bedside Glucose 149 mg/dL (74-106)
--- NOTE | 2024-03-19 17:09 | PN.HOSP_ITS ---
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 (03/08/24) Overweight (03/08/24) Dilated cardiomyopathy (03/08/24) Atherosclerosis of cheesh-na arteries of extremities with gangrene, unspecified extremity (03/08/24) Unspecified atherosclerosis (03/08/24) Peripheral vascular disease, unspecified (03/08/24) Gangrene, not elsewhere classified (03/08/24) Cellulitis of right toe (03/08/24) Primary osteoarthritis, unspecified site (03/08/24) Other acute osteomyelitis, right ankle and foot (03/08/24) Other malaise (03/08/24) Contusion of unspecified lower leg, initial encounter (03/08/24) Other specified postprocedural states (03/08/24) Subjective Subjective This is a late entry and should be dated 03/18/2024: Patient was seen and examined today, I talked briefly with the who is in the room at the time my examination. Patient has no new complaints today and she does not complain of feeling anxious. Objective Data Objective Data Vital Signs: Vital Signs Temp Pulse Resp BP Pulse Ox O2 Del Method O2 Flow Rate 98.1 F 107 H 16 131/77 H 98 Room Air 2 03/19/24 14:44 03/19/24 16:43 03/19/24 14:44 03/19/24 14:44 03/19/24 14:44 03/19/24 14:46 03/15/24 13:26 Oxygen Flow Rate (L/min) 2 Oxygen Delivery Method Room Air Weight: 66.5 kg Body Mass Index (BMI) 25.9 Intake & Output: Intake and Output for Last 24 Hours 03/17/24 03/18/24 03/19/24 23:59 23:59 23:59 Intake Total 1862.02 / 1862.02 1406 / 1646 1040 / 1040 Output Total 1500 / 1500 1600 / 2000 1400 / 1400 Balance 362.02 / 362.02 -194 / -354 -360 / -360 Lab / Micro Data 03/19/24 05:08 03/19/24 05:08 Labs: Laboratory Results - last 24 hr 03/18/24 11:25: Blood Type A POSITIVE, Antibody Screen NEGATIVE, Crossmatch See Detail 03/18/24 20:40: POC Glucose 129 H 03/19/24 05:08: WBC 6.2, RBC 3.05 L, Hgb 9.2 L, Hct 28.3 L, MCV 92.8, MCH 30.2, MCHC 32.5 D, RDW Std Deviation 60.3 H, RDW Coeff of Kate 18.4 H, Plt Count 284, MPV 10.1, PT 27.8 H, INR 2.6, Sodium 140, Potassium 3.3 L, Chloride 105, Carbon Dioxide 26.0, Anion Gap 9, BUN 22 H, Creatinine 0.69, Estim Creat Clear Calc 47.96, Est GFR (MDRD) Af Amer 104, Est GFR (MDRD) Non-Af 86, BUN/Creatinine Ratio 31.9 H, Glucose 122 H, Calcium 8.8 03/19/24 06:13: POC Glucose 128 H 03/19/24 10:55: POC Glucose 186 H 03/19/24 16:39: POC Glucose 149 H Micro: Microbiology 03/07/24 22:50 Blood Culture (Wb) - Anticubital Left Blood Culture - Final No growth in 5 days. Physical Exam Narrative alert, oriented x 3, no apparent distress and healthy appearing Constitutional Narrative: Patient is alert General Appearance: cooperative, well kempt and well developed Orientation / Consciousness: awake HEENT normocephalic, head/scalp atraumatic and moist oral mucous membranes Eyes PERRL, EOMs intact bilaterally and conjunctivae normal Neck supple, no JVD and thyroid normal General: trachea midline Resp normal respiratory effort, no retractions, no use of accessory muscles and clear to auscultation bilaterally Auscultation: Negative for rales, rhonchi or wheezes Cardio S1 normal heart sound, S2 normal heart sound, no murmurs, no rub and no gallops Cardio Narrative: Heart rate and rhythm is irregular GI normal to inspection, nondistended, normoactive bowel sounds, soft to palpation, non-tender and non-distended Extremity Extremity Narrative: Right leg is wrapped in surgical dressing from the upper thigh area down to the right ankle area, right foot is wrapped with surgical dressing this was not removed to examine the foot Neuro CN's II-XII intact bilaterally, moves all extremities, no focal motor deficits and no sensory deficits noted, patient is alert and oriented x 3 Sensorium / Orientation: awake Speech: speech normal Psych affect normal Assessment & Plan Assessment/Plan (1) Dry gangrene: (2) Diabetic wet gangrene of the foot: (3) 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 Dry gangrene of the right foot secondary to peripheral vascular disease- patient appears medically stable at this time, patient underwent a transmetatarsal amputation of the right foot, patient completed a course of antibiotics. #2 peripheral vascular disease-status post bypass right leg-patient appears to be doing well postop #3 factor V deficiency-patient is on Lovenox, INR was 1.9 today, INR will be repeated tomorrow, patient is on warfarin #4 type 2 diabetes-patient's blood sugars will be monitored, sliding scale insulin will be administered as needed #5 essential hypertension-patient will remain on her present medications #6 hyperlipidemia-patient is on simvastatin #7 chronic atrial fibrillation-patient is on rate control medications and normally on anticoagulation, patient is currently on Lovenox and warfarin, INR is not therapeutic as of today. INR will be repeated tomorrow #8 acute blood loss anemia from hematoma of the right leg requiring blood transfusion, CBC will be monitored as needed Total clinical time spent by myself addressing the patient's medical issues, reviewing all her data, and collaborating with patient's care team: 35 minutes Charges/Coding Visit Charges Inpatient E&M: 63633 Subs Hosp L2
== END 2024-03-19 18:05 | disposition skilled nursing facility (03) | DRG 240 ==
LOC: ED 22:15 → PCU 03-08 04:16 → ICU 03-14 13:28 → PCU 03-14 13:29
PROVIDERS: Anesthesiology; Family Medicine; Internal Medicine; Internal Medicine Infectious Disease; Physician Assistant; Podiatrist; Surgery Trauma Surgery; Admitting Provider Internal Medicine; Emergency Provider Surgery; PCP Internal Medicine; Visit Provider Internal Medicine
PROC: 04HY33Z Insertion of Infusion Device into Lower Artery, Percutaneous Approach (ICD-10-PCS; principal; 2024-03-12 09:00)
PROC: 0Y6M0ZC Detachment at Right Foot, Partial 3rd Ray, Open Approach (ICD-10-PCS; CPT 28805; principal; 2024-03-15 13:15)
DX: E11.52 Type 2 diabetes mellitus with diabetic peripheral angiopathy with gangrene (principal); D68.2 Hereditary deficiency of other clotting factors; M79.A21 Nontraumatic compartment syndrome of right lower extremity; M86.171 Other acute osteomyelitis, right ankle and foot; I42.0 Dilated cardiomyopathy; D62 Acute posthemorrhagic anemia; I48.20 Chronic atrial fibrillation, unspecified; I97.638 Postprocedural hematoma of a circulatory system organ or structure following other circulatory system procedure; I11.0 Hypertensive heart disease with heart failure; E11.621 Type 2 diabetes mellitus with foot ulcer; D50.9 Iron deficiency anemia, unspecified; F32.A Depression, unspecified; I73.9 Peripheral vascular disease, unspecified; I50.9 Heart failure, unspecified; F41.9 Anxiety disorder, unspecified; M19.91 Primary osteoarthritis, unspecified site; E78.5 Hyperlipidemia, unspecified; E66.3 Overweight; Z79.84 Long term (current) use of oral hypoglycemic drugs; Z68.25 Body mass index [BMI] 25.0-25.9, adult; Z79.2 Long term (current) use of antibiotics; L03.031 Cellulitis of right toe; Z79.891 Long term (current) use of opiate analgesic; Z79.01 Long term (current) use of anticoagulants; Z79.02 Long term (current) use of antithrombotics/antiplatelets
CPT/HCPCS: 36200; 36245; 36415; 73630; 73718; 75625; 75710; 76937; 80048; 80053; 80202; 82550; 82565; 82962; 83036; 83735; 84100; 84443; 85014; 85018; 85025; 85027; 85347; 85610; 85652; 85730; 86140; 86850; 86900; 86901; 86920; 86922; 87040; 88307; 88311; 93005; 93926; 94668; 94762; 97110; 97161; 97164; 97166; 97168; 97530; 97535; 99252; 99284; A4648; C1760; C1769; C1887; C1894; J7030; J7040; J7050; J7120; P9016; Q9967; A4216; G0463; J2405; J3430

== ENCOUNTER 2024-03-19 18:10 | Inpatient (IN) | payer MEDICARE, SELFPAY ==
[2024-03-19 18:26] VITALS: BP 109/53; PULSE 98; RESP 14; TEMP 36.8; O2SAT 96; BMI 24.9
[2024-03-19 20:00] VITALS: PULSE 98; O2SAT 96
[2024-03-19 21:34] LABS: Bedside Glucose 119 mg/dL (74-106)
[2024-03-19] MEDS: Atorvastatin Calcium 40 MG Tablet PO (21:34)
[2024-03-19] MEDS: Acetaminophen 500 MG Tablet 1000 MG PO (21:34)
[2024-03-20] MEDS: Acetaminophen 500 MG Tablet 1000 MG PO ×3 (05:34→22:21)
[2024-03-20 06:29] LABS: Absolute Lymphocyte Count 1.27 X10^3/uL (0.83-4.51); Absolute Neutrophil Count 4.1 X10^3/uL (2.0-7.7); Basophil# 0.05 X10^3/uL; Basophil% 0.8 % (0-1); Eosinophil# 0.11 X10^3/uL; Eosinophils% 1.7 % (0-5); Hematocrit 28.6 % (37-47); Hemoglobin 9.2 g/dL (12.0-15.0); Lymphocyte # 1.27 X10^3/ul (0.83-4.51); Lymphocyte % 19.9 % (19-41); Mean Corp Hgb Conc 32.2 g/dL (32-36); Mean Corpuscular Hgb 29.7 pg (27.0-32.0); Mean Corpuscular Volume 92.3 fL (81-99); Mean Platelet Vol. 9.5 fl (6.2-12.0); Monocyte# 0.82 X10^3/uL; Monocyte% 12.9 % (0-10); NRBC Flagged by Analyzer 0.3 % (0-5); Neutrophil % 64.2 % (47-70); Platelet Count 338 K/mm3 (150-450); RBC Distribution Width CV 18.4 % (11.6-14.6); RBC Distribution Width SD 60.8 fl (35.1-43.9); White Blood Count 6.4 K/mm3 (4.4-11.0)
[2024-03-20 06:33] LABS: Bedside Glucose 152 mg/dL (74-106)
[2024-03-20 06:54] LABS: Anion Gap 6 (5-15); BUN 15 mg/dL (7-18); BUN/Creat Ratio 21.3 RATIO (10-20); Calcium,Total 9.2 mg/dL (8.5-10.1); Chloride 109 mmol/L (98-107); EST Glomerular Filtration Rate 84 mL/min (>60); Est Glom Filt Rate - Afr Amer 102 mL/min (>60); Estimated Creatinine Clearance 47.06 ml/min; Glucose 136 mg/dL (74-106); Potassium 3.2 mmol/L (3.5-5.1); Sodium Level 138 mmol/L (136-145)
[2024-03-20] MEDS: oxyCODONE 5 MG Tablet 10 MG PO ×4 (07:56→22:22)
[2024-03-20] MEDS: Potassium Chloride Oral Tablet 20 MEQ 40 MEQ PO (07:57)
[2024-03-20] MEDS: Spironolactone 25 MG Tablet 12.5 MG PO (08:06)
[2024-03-20] MEDS: Tolterodine Tartrate 2 MG CAP.SA PO (08:06)
[2024-03-20] MEDS: Glimepiride 2 MG Tablet PO (08:06)
[2024-03-20] MEDS: Furosemide 40 MG Tablet PO (08:06)
[2024-03-20 08:07] VITALS: PULSE 85
[2024-03-20] MEDS: Clopidogrel Bisulfate 75 MG Tablet PO (08:07)
[2024-03-20] MEDS: Metoprolol(XL)Succ 50 MG Tablet PO (08:07)
[2024-03-20] MEDS: Sertraline 50 MG Tablet 25 MG PO (08:07)
[2024-03-20] MEDS: Magnesium Chloride 64 MG Delay Rel.Tablet 128 MG PO (08:07)
[2024-03-20 09:43] VITALS: BMI 25.0
[2024-03-20] MEDS: Tuberculin,Purif.prot.deriv. 50 TU/ML Vial 0.1 ML ID (10:56)
[2024-03-20 12:06] LABS: Bedside Glucose 124 mg/dL (74-106)
[2024-03-20] MEDS: Ferrous Sulfate 325 MG Tablet PO (12:59)
[2024-03-20 15:35] VITALS: BP 164/79; PULSE 85; RESP 18; TEMP 36.6; O2SAT 99
[2024-03-20] MEDS: Losartan Potassium 50 MG Tablet PO (16:18)
[2024-03-20 16:19] VITALS: PULSE 84
[2024-03-20] MEDS: Metoprolol(XL)Succ 25 MG Tablet PO (16:19)
[2024-03-20 16:57] LABS: Bedside Glucose 79 mg/dL (74-106)
[2024-03-20] MEDS: Gabapentin 100 MG Capsule PO (17:38)
[2024-03-20 21:35] LABS: Bedside Glucose 120 mg/dL (74-106)
[2024-03-20] MEDS: Atorvastatin Calcium 40 MG Tablet PO (22:22)
[2024-03-21] MEDS: Acetaminophen 500 MG Tablet 1000 MG PO ×3 (05:52→20:16)
[2024-03-21] MEDS: oxyCODONE 5 MG Tablet 10 MG PO ×4 (05:52→20:15)
[2024-03-21 06:11] LABS: Anion Gap 5 (5-15); BUN 17 mg/dL (7-18); BUN/Creat Ratio 23.3 RATIO (10-20); Calcium,Total 8.9 mg/dL (8.5-10.1); Chloride 110 mmol/L (98-107); Creatinine, Serum 0.73 mg/dL (0.55-1.02); EST Glomerular Filtration Rate 81 mL/min (>60); Est Glom Filt Rate - Afr Amer 97 mL/min (>60); Estimated Creatinine Clearance 47.11 ml/min; Glucose 111 mg/dL (74-106); Potassium 3.3 mmol/L (3.5-5.1); Sodium Level 140 mmol/L (136-145)
[2024-03-21 06:33] LABS: Bedside Glucose 117 mg/dL (74-106)
[2024-03-21 07:52] VITALS: BMI 24.5
[2024-03-21] MEDS: Gabapentin 100 MG Capsule PO ×3 (08:01→17:01)
[2024-03-21] MEDS: Glimepiride 2 MG Tablet PO (08:02)
[2024-03-21] MEDS: Magnesium Chloride 64 MG Delay Rel.Tablet 128 MG PO (08:02)
[2024-03-21] MEDS: Spironolactone 25 MG Tablet 12.5 MG PO (08:02)
[2024-03-21] MEDS: Senna/Docusate Sodium 1 Tablet 2 TABLET PO (08:02)
[2024-03-21] MEDS: Potassium Chloride Oral Tablet 20 MEQ PO ×2 (08:02→17:01)
[2024-03-21] MEDS: Furosemide 40 MG Tablet PO (08:02)
[2024-03-21 08:03] VITALS: BP 128/78; PULSE 87
[2024-03-21] MEDS: Metoprolol(XL)Succ 50 MG Tablet PO (08:03)
[2024-03-21] MEDS: Sertraline 50 MG Tablet 25 MG PO (08:03)
[2024-03-21] MEDS: Clopidogrel Bisulfate 75 MG Tablet PO (08:04)
[2024-03-21] MEDS: Tolterodine Tartrate 2 MG CAP.SA PO (08:04)
[2024-03-21] MEDS: 0.9% Saline Lock 10 ML Syringe IV (10:19)
[2024-03-21 11:48] LABS: Bedside Glucose 106 mg/dL (74-106)
[2024-03-21] MEDS: Ferrous Sulfate 325 MG Tablet PO (12:03)
[2024-03-21 15:05] VITALS: BP 111/64; PULSE 84; RESP 16; TEMP 36.8; O2SAT 96
[2024-03-21 17:00] VITALS: BP 104/60; PULSE 71
[2024-03-21] MEDS: Metoprolol(XL)Succ 25 MG Tablet PO (17:00)
[2024-03-21] MEDS: Losartan Potassium 50 MG Tablet PO (17:01)
[2024-03-21 17:27] LABS: Bedside Glucose 108 mg/dL (74-106)
[2024-03-21] MEDS: Glucerna Shake 120 ML LIQUID PO (18:30)
[2024-03-21] MEDS: Atorvastatin Calcium 40 MG Tablet PO (20:17)
[2024-03-22] MEDS: oxyCODONE 5 MG Tablet 10 MG PO ×4 (02:20→21:06)
[2024-03-22] MEDS: tiZANidine HCl 2 MG Tablet 4 MG PO ×2 (02:30→21:00)
[2024-03-22 05:55] LABS: Bedside Glucose 130 mg/dL (74-106)
[2024-03-22 06:00] VITALS: BMI 25.6
[2024-03-22 06:28] LABS: International Normalized Ratio 2.5; Prothrombin Time (Protime)PT. 27.1 SECONDS (11.7-14.9)
[2024-03-22] MEDS: Acetaminophen 500 MG Tablet 1000 MG PO ×3 (06:31→21:01)
[2024-03-22] MEDS: Glucerna Shake 120 ML LIQUID PO ×2 (08:17→13:23)
[2024-03-22] MEDS: Potassium Chloride Oral Tablet 20 MEQ PO ×2 (08:18→17:04)
[2024-03-22] MEDS: Gabapentin 100 MG Capsule PO ×3 (08:18→17:01)
[2024-03-22] MEDS: Glimepiride 2 MG Tablet PO (08:19)
[2024-03-22 08:20] VITALS: BP 80/38; PULSE 82
[2024-03-22] MEDS: Sertraline 50 MG Tablet 25 MG PO (08:21)
[2024-03-22] MEDS: Tolterodine Tartrate 2 MG CAP.SA PO (08:24)
[2024-03-22] MEDS: Magnesium Chloride 64 MG Delay Rel.Tablet 128 MG PO (08:24)
[2024-03-22] MEDS: Clopidogrel Bisulfate 75 MG Tablet PO (08:25)
[2024-03-22] MEDS: Senna/Docusate Sodium 1 Tablet 2 TABLET PO (08:26)
[2024-03-22 08:30] VITALS: BP 80/38; PULSE 82; RESP 16; O2SAT 97
[2024-03-22] MEDS: 0.9% Normal Saline (500mL Bag) 500 ML 999 ML IV ×2 (09:04→11:59)
[2024-03-22] MEDS: 0.9% Saline Lock 10 ML Syringe IV ×3 (09:06→20:57)
[2024-03-22 10:46] VITALS: BP 90/56
[2024-03-22] MEDS: Ferrous Sulfate 325 MG Tablet PO (11:28)
[2024-03-22] MEDS: Pneumococcal Vaccine 20 Valent 0.5 ML Syringe IM (11:30)
[2024-03-22 13:31] VITALS: BP 123/52; PULSE 93
[2024-03-22] MEDS: Losartan Potassium 50 MG Tablet PO (17:03)
[2024-03-22 17:05] VITALS: BP 130/67; PULSE 104
[2024-03-22] MEDS: Metoprolol(XL)Succ 25 MG Tablet PO (17:05)
[2024-03-22 17:10] VITALS: BP 130/67; PULSE 104
[2024-03-22] MEDS: Atorvastatin Calcium 40 MG Tablet PO (21:03)
[2024-03-23] MEDS: Acetaminophen 500 MG Tablet 1000 MG PO ×3 (05:20→20:03)
[2024-03-23 06:00] VITALS: BMI 25.7
[2024-03-23] MEDS: oxyCODONE 5 MG Tablet 10 MG PO ×3 (06:20→20:03)
[2024-03-23 06:37] LABS: Bedside Glucose 155 mg/dL (74-106)
[2024-03-23 06:55] LABS: Anion Gap 4 (5-15); BUN 29 mg/dL (7-18); BUN/Creat Ratio 33.5 RATIO (10-20); Calcium,Total 8.6 mg/dL (8.5-10.1); Chloride 111 mmol/L (98-107); Creatinine, Serum 0.87 mg/dL (0.55-1.02); EST Glomerular Filtration Rate 66 mL/min (>60); Est Glom Filt Rate - Afr Amer 80 mL/min (>60); Estimated Creatinine Clearance 43.83 ml/min; Glucose 136 mg/dL (74-106); Potassium 4.1 mmol/L (3.5-5.1); Sodium Level 138 mmol/L (136-145)
[2024-03-23 08:40] VITALS: BP 106/52; PULSE 69; RESP 18; O2SAT 97
[2024-03-23] MEDS: Gabapentin 100 MG Capsule PO ×3 (08:42→16:45)
[2024-03-23] MEDS: Glucerna Shake 120 ML LIQUID PO ×3 (08:51→16:45)
[2024-03-23] MEDS: Glimepiride 2 MG Tablet PO (08:51)
[2024-03-23] MEDS: Potassium Chloride Oral Tablet 20 MEQ PO ×2 (08:52→16:44)
[2024-03-23] MEDS: Tolterodine Tartrate 2 MG CAP.SA PO (08:54)
[2024-03-23] MEDS: Clopidogrel Bisulfate 75 MG Tablet PO (08:54)
[2024-03-23] MEDS: Magnesium Chloride 64 MG Delay Rel.Tablet 128 MG PO (08:54)
[2024-03-23] MEDS: Senna/Docusate Sodium 1 Tablet 2 TABLET PO (08:55)
[2024-03-23] MEDS: Sertraline 50 MG Tablet 25 MG PO (08:55)
[2024-03-23 11:04] VITALS: BP 114/67; PULSE 96
[2024-03-23] MEDS: Spironolactone 25 MG Tablet 12.5 MG PO (11:05)
[2024-03-23 11:06] VITALS: PULSE 96
[2024-03-23] MEDS: Furosemide 40 MG Tablet PO (11:06)
[2024-03-23] MEDS: Metoprolol(XL)Succ 50 MG Tablet PO (11:06)
[2024-03-23] MEDS: Ferrous Sulfate 325 MG Tablet PO (11:51)
[2024-03-23 16:34] VITALS: BP 122/75; PULSE 98; RESP 16; TEMP 36.7; O2SAT 97
[2024-03-23] MEDS: Losartan Potassium 50 MG Tablet PO (16:44)
[2024-03-23 16:45] VITALS: PULSE 98
[2024-03-23] MEDS: Metoprolol(XL)Succ 25 MG Tablet PO (16:45)
[2024-03-23] MEDS: 0.9% Saline Lock 10 ML Syringe IV (16:53)
[2024-03-23 20:00] VITALS: BP 137/68; PULSE 82; RESP 18; TEMP 36.5; O2SAT 97
[2024-03-23] MEDS: Atorvastatin Calcium 40 MG Tablet PO (20:04)
[2024-03-23] MEDS: tiZANidine HCl 2 MG Tablet 4 MG PO (23:24)
[2024-03-24] MEDS: oxyCODONE 5 MG Tablet 10 MG PO ×3 (00:35→20:51)
[2024-03-24 06:00] VITALS: BMI 25.6
[2024-03-24] MEDS: Acetaminophen 500 MG Tablet 1000 MG PO ×3 (06:37→20:51)
[2024-03-24 06:43] LABS: Bedside Glucose 120 mg/dL (74-106)
[2024-03-24 08:00] VITALS: BP 91/50; PULSE 84; RESP 18; O2SAT 98
[2024-03-24 09:37] VITALS: BP 91/50; PULSE 84
[2024-03-24] MEDS: Tolterodine Tartrate 2 MG CAP.SA PO (09:37)
[2024-03-24] MEDS: Magnesium Chloride 64 MG Delay Rel.Tablet 128 MG PO (09:37)
[2024-03-24] MEDS: Metoprolol(XL)Succ 50 MG Tablet PO (09:37)
[2024-03-24] MEDS: Furosemide 40 MG Tablet PO (09:37)
[2024-03-24] MEDS: Potassium Chloride Oral Tablet 20 MEQ PO ×2 (09:37→16:59)
[2024-03-24] MEDS: Clopidogrel Bisulfate 75 MG Tablet PO (09:37)
[2024-03-24] MEDS: Sertraline 50 MG Tablet 25 MG PO (09:38)
[2024-03-24] MEDS: Spironolactone 25 MG Tablet 12.5 MG PO (09:38)
[2024-03-24] MEDS: Glimepiride 2 MG Tablet PO (09:38)
[2024-03-24] MEDS: Gabapentin 100 MG Capsule PO ×3 (09:41→17:00)
[2024-03-24] MEDS: Glucerna Shake 120 ML LIQUID PO ×3 (09:41→17:03)
[2024-03-24] MEDS: Menthol/Lanolin/Calamine/Znox 113 GM Tube 1 APPLIC TOPICAL ×2 (10:42→22:40)
[2024-03-24] MEDS: Ferrous Sulfate 325 MG Tablet PO (13:16)
[2024-03-24] MEDS: Losartan Potassium 50 MG Tablet PO (17:00)
[2024-03-24 17:03] VITALS: BP 123/66; PULSE 93
[2024-03-24] MEDS: Metoprolol(XL)Succ 25 MG Tablet PO (17:03)
[2024-03-24 17:05] VITALS: BP 123/66; PULSE 93; O2SAT 96
[2024-03-24] MEDS: Atorvastatin Calcium 40 MG Tablet PO (20:51)
[2024-03-24 22:36] VITALS: RESP 16
[2024-03-25] MEDS: tiZANidine HCl 2 MG Tablet 4 MG PO ×2 (00:34→20:13)
[2024-03-25] MEDS: Acetaminophen 500 MG Tablet 1000 MG PO ×3 (05:44→20:14)
[2024-03-25 06:00] VITALS: BMI 25.5
[2024-03-25 06:46] LABS: Bedside Glucose 139 mg/dL (74-106)
[2024-03-25] MEDS: Potassium Chloride Oral Tablet 20 MEQ PO ×2 (08:27→17:52)
[2024-03-25] MEDS: Magnesium Chloride 64 MG Delay Rel.Tablet 128 MG PO (08:27)
[2024-03-25] MEDS: Furosemide 40 MG Tablet PO (08:28)
[2024-03-25] MEDS: Tolterodine Tartrate 2 MG CAP.SA PO (08:28)
[2024-03-25 08:30] VITALS: PULSE 76
[2024-03-25] MEDS: Sertraline 50 MG Tablet 25 MG PO (08:30)
[2024-03-25] MEDS: Metoprolol(XL)Succ 25 MG Tablet PO (08:30)
[2024-03-25] MEDS: Spironolactone 25 MG Tablet 12.5 MG PO (08:31)
[2024-03-25] MEDS: Clopidogrel Bisulfate 75 MG Tablet PO (08:31)
[2024-03-25] MEDS: Glimepiride 2 MG Tablet PO (08:32)
[2024-03-25 08:33] VITALS: PULSE 76
[2024-03-25] MEDS: Metoprolol(XL)Succ 50 MG Tablet PO (08:33)
[2024-03-25] MEDS: Gabapentin 100 MG Capsule PO ×3 (08:36→17:54)
[2024-03-25] MEDS: Glucerna Shake 120 ML LIQUID PO ×2 (08:36→12:58)
[2024-03-25 08:45] VITALS: BP 101/48; PULSE 76; RESP 15; TEMP 36.8; O2SAT 97
[2024-03-25] MEDS: Ferrous Sulfate 325 MG Tablet PO (12:58)
[2024-03-25] MEDS: Losartan Potassium 50 MG Tablet PO (17:52)
[2024-03-25] MEDS: oxyCODONE 5 MG Tablet 10 MG PO (20:12)
[2024-03-25] MEDS: Atorvastatin Calcium 40 MG Tablet PO (20:14)
[2024-03-25] MEDS: 0.9% Saline Lock 10 ML Syringe IV (20:17)
[2024-03-25] MEDS: Menthol/Lanolin/Calamine/Znox 113 GM Tube 1 APPLIC TOPICAL (20:20)
[2024-03-26] MEDS: Acetaminophen 500 MG Tablet 1000 MG PO ×3 (05:47→22:17)
[2024-03-26 06:11] LABS: Prothrombin Time (Protime)PT. 30.6 SECONDS (11.7-14.9)
[2024-03-26 06:43] LABS: Bedside Glucose 123 mg/dL (74-106)
[2024-03-26 08:18] VITALS: BP 112/47; PULSE 60; TEMP 36.8; O2SAT 90
[2024-03-26] MEDS: Glimepiride 2 MG Tablet PO (08:31)
[2024-03-26] MEDS: Glucerna Shake 120 ML LIQUID PO ×3 (08:31→17:01)
[2024-03-26] MEDS: Gabapentin 100 MG Capsule PO ×3 (08:31→17:02)
[2024-03-26] MEDS: Spironolactone 25 MG Tablet 12.5 MG PO (08:32)
[2024-03-26] MEDS: Potassium Chloride Oral Tablet 20 MEQ PO ×2 (08:32→17:02)
[2024-03-26] MEDS: Tolterodine Tartrate 2 MG CAP.SA PO (08:33)
[2024-03-26] MEDS: Menthol/Lanolin/Calamine/Znox 113 GM Tube 1 APPLIC TOPICAL ×2 (08:33→22:17)
[2024-03-26] MEDS: Furosemide 40 MG Tablet PO (08:34)
[2024-03-26] MEDS: Clopidogrel Bisulfate 75 MG Tablet PO (08:34)
[2024-03-26] MEDS: Senna/Docusate Sodium 1 Tablet 2 TABLET PO (08:34)
[2024-03-26] MEDS: Magnesium Chloride 64 MG Delay Rel.Tablet 128 MG PO (08:34)
[2024-03-26 08:35] VITALS: PULSE 60
[2024-03-26] MEDS: Metoprolol(XL)Succ 50 MG Tablet PO (08:35)
[2024-03-26] MEDS: Sertraline 50 MG Tablet 25 MG PO (08:35)
[2024-03-26] MEDS: oxyCODONE 5 MG Tablet 10 MG PO ×2 (09:42→19:35)
[2024-03-26] MEDS: Ferrous Sulfate 325 MG Tablet PO (11:57)
[2024-03-26] MEDS: Losartan Potassium 50 MG Tablet PO (16:47)
[2024-03-26] MEDS: Warfarin 0.5 MG Tablet 3.5 MG PO (16:48)
[2024-03-26 17:02] VITALS: BP 148/52; PULSE 65
[2024-03-26] MEDS: Metoprolol(XL)Succ 25 MG Tablet PO (17:02)
[2024-03-26] MEDS: 0.9% Saline Lock 10 ML Syringe IV (17:09)
[2024-03-26 20:25] VITALS: PULSE 68; RESP 16; O2SAT 98
[2024-03-26] MEDS: Atorvastatin Calcium 40 MG Tablet PO (22:17)
[2024-03-26] MEDS: tiZANidine HCl 2 MG Tablet 4 MG PO (23:11)
[2024-03-27] VITALS (9 sets, daily range): BP systolic 104–147; BP diastolic 43–69; PULSE 53–63; RESP 14–18; TEMP 36.4–37.2; O2SAT 98; BMI 25.7
[2024-03-27] MEDS: 0.9% Saline Lock 10 ML Syringe IV ×3 (05:47→18:00)
[2024-03-27] MEDS: Acetaminophen 500 MG Tablet 1000 MG PO ×3 (05:48→20:04)
[2024-03-27 06:41] LABS: Bedside Glucose 122 mg/dL (74-106)
[2024-03-27 06:41] LABS: Absolute Lymphocyte Count 1.35 X10^3/uL (0.83-4.51); Absolute Neutrophil Count 4.3 X10^3/uL (2.0-7.7); Basophil# 0.04 X10^3/uL; Basophil% 0.6 % (0-1); Eosinophil# 0.12 X10^3/uL; Eosinophils% 1.8 % (0-5); Hematocrit 25.2 % (37-47); Hemoglobin 7.8 g/dL (12.0-15.0); Lymphocyte # 1.35 X10^3/ul (0.83-4.51); Lymphocyte % 20.7 % (19-41); Mean Corpuscular Hgb 29.7 pg (27.0-32.0); Mean Corpuscular Volume 95.8 fL (81-99); Mean Platelet Vol. 9.3 fl (6.2-12.0); Monocyte# 0.66 X10^3/uL; Monocyte% 10.1 % (0-10); NRBC Flagged by Analyzer 0.8 % (0-5); Neutrophil # 4.33 X10^3/uL (2.7-7.7); Neutrophil % 66.3 % (47-70); Platelet Count 439 K/mm3 (150-450); RBC Distribution Width SD 61.6 fl (35.1-43.9); Red Blood Count 2.63 M/mm3 (4.2-5.4); White Blood Count 6.5 K/mm3 (4.4-11.0)
[2024-03-27 06:44] LABS: Anion Gap 7 (5-15); BUN 41 mg/dL (7-18); BUN/Creat Ratio 46.6 RATIO (10-20); Calcium,Total 8.9 mg/dL (8.5-10.1); Chloride 109 mmol/L (98-107); Creatinine, Serum 0.88 mg/dL (0.55-1.02); EST Glomerular Filtration Rate 65 mL/min (>60); Est Glom Filt Rate - Afr Amer 79 mL/min (>60); Glucose 135 mg/dL (74-106); Potassium 4.2 mmol/L (3.5-5.1); Sodium Level 136 mmol/L (136-145)
[2024-03-27] MEDS: oxyCODONE 5 MG Tablet 10 MG PO ×2 (07:59→20:04)
[2024-03-27] MEDS: Gabapentin 100 MG Capsule PO ×3 (08:00→17:17)
[2024-03-27] MEDS: Senna/Docusate Sodium 1 Tablet 2 TABLET PO (09:34)
[2024-03-27] MEDS: Tolterodine Tartrate 2 MG CAP.SA PO (09:34)
[2024-03-27] MEDS: Glucerna Shake 120 ML LIQUID PO ×3 (09:34→17:19)
[2024-03-27] MEDS: Potassium Chloride Oral Tablet 20 MEQ PO ×2 (09:34→17:17)
[2024-03-27] MEDS: Glimepiride 2 MG Tablet PO (09:34)
[2024-03-27] MEDS: Furosemide 40 MG Tablet PO (09:34)
[2024-03-27] MEDS: Clopidogrel Bisulfate 75 MG Tablet PO (09:34)
[2024-03-27] MEDS: Spironolactone 25 MG Tablet 12.5 MG PO (09:34)
[2024-03-27] MEDS: Magnesium Chloride 64 MG Delay Rel.Tablet 128 MG PO (09:34)
[2024-03-27] MEDS: Sertraline 50 MG Tablet 25 MG PO (09:35)
[2024-03-27] MEDS: Tuberculin,Purif.prot.deriv. 50 TU/ML Vial 0.1 ML ID (09:35)
[2024-03-27] MEDS: Menthol/Lanolin/Calamine/Znox 113 GM Tube 1 APPLIC TOPICAL ×2 (09:36→20:05)
[2024-03-27] MEDS: Ferrous Sulfate 325 MG Tablet PO (12:38)
[2024-03-27] MEDS: Furosemide 20 MG/2 ML VIAL IV (15:43)
[2024-03-27] MEDS: Metoprolol(XL)Succ 25 MG Tablet PO (17:17)
[2024-03-27] MEDS: tiZANidine HCl 2 MG Tablet 4 MG PO (20:04)
[2024-03-27] MEDS: Atorvastatin Calcium 40 MG Tablet PO (20:06)
[2024-03-28] MEDS: Acetaminophen 500 MG Tablet 1000 MG PO ×3 (04:48→20:30)
[2024-03-28] MEDS: oxyCODONE 5 MG Tablet 10 MG PO ×3 (04:49→20:28)
[2024-03-28 06:00] VITALS: BMI 25.5
[2024-03-28 06:13] LABS: Bedside Glucose 106 mg/dL (74-106)
[2024-03-28] MEDS: Glucerna Shake 120 ML LIQUID PO ×3 (08:08→16:43)
[2024-03-28] MEDS: Furosemide 40 MG Tablet PO (08:09)
[2024-03-28] MEDS: Gabapentin 100 MG Capsule PO ×3 (08:09→16:43)
[2024-03-28] MEDS: Magnesium Chloride 64 MG Delay Rel.Tablet 128 MG PO (08:09)
[2024-03-28] MEDS: Potassium Chloride Oral Tablet 20 MEQ PO ×2 (08:09→16:43)
[2024-03-28] MEDS: Glimepiride 2 MG Tablet PO (08:09)
[2024-03-28] MEDS: Clopidogrel Bisulfate 75 MG Tablet PO (08:09)
[2024-03-28] MEDS: Sertraline 50 MG Tablet 25 MG PO (08:09)
[2024-03-28] MEDS: Senna/Docusate Sodium 1 Tablet 2 TABLET PO (08:09)
[2024-03-28] MEDS: Menthol/Lanolin/Calamine/Znox 113 GM Tube 1 APPLIC TOPICAL ×2 (08:09→20:31)
[2024-03-28] MEDS: Tolterodine Tartrate 2 MG CAP.SA PO (09:50)
[2024-03-28] MEDS: Ferrous Sulfate 325 MG Tablet PO (11:06)
[2024-03-28] MEDS: 0.9% Saline Lock 10 ML Syringe IV (13:48)
[2024-03-28 16:00] VITALS: BP 138/64; PULSE 67; RESP 12; TEMP 37.3; O2SAT 94
[2024-03-28 16:43] VITALS: BP 138/64; PULSE 67
[2024-03-28] MEDS: Metoprolol(XL)Succ 25 MG Tablet PO (16:43)
[2024-03-28 20:04] VITALS: RESP 16
[2024-03-28] MEDS: tiZANidine HCl 2 MG Tablet 4 MG PO (20:28)
[2024-03-28] MEDS: Atorvastatin Calcium 40 MG Tablet PO (20:30)
[2024-03-29] MEDS: Acetaminophen 500 MG Tablet 1000 MG PO ×3 (05:25→21:15)
[2024-03-29 06:00] VITALS: BMI 25.3
[2024-03-29 06:16] LABS: Bedside Glucose 107 mg/dL (74-106)
[2024-03-29 06:46] LABS: International Normalized Ratio 2.4; Prothrombin Time (Protime)PT. 26.2 SECONDS (11.7-14.9)
[2024-03-29 10:00] VITALS: RESP 17
[2024-03-29] MEDS: Gabapentin 100 MG Capsule PO ×3 (10:03→16:46)
[2024-03-29] MEDS: Glucerna Shake 120 ML LIQUID PO ×3 (10:03→16:46)
[2024-03-29] MEDS: oxyCODONE 5 MG Tablet 10 MG PO ×2 (10:03→21:15)
[2024-03-29] MEDS: Potassium Chloride Oral Tablet 20 MEQ PO ×2 (10:04→16:47)
[2024-03-29] MEDS: Glimepiride 2 MG Tablet PO (10:04)
[2024-03-29] MEDS: Magnesium Chloride 64 MG Delay Rel.Tablet 128 MG PO (10:05)
[2024-03-29] MEDS: Tolterodine Tartrate 2 MG CAP.SA PO (10:05)
[2024-03-29] MEDS: Furosemide 40 MG Tablet PO (10:05)
[2024-03-29] MEDS: Sertraline 50 MG Tablet 25 MG PO (10:06)
[2024-03-29] MEDS: Clopidogrel Bisulfate 75 MG Tablet PO (10:06)
[2024-03-29] MEDS: Menthol/Lanolin/Calamine/Znox 113 GM Tube 1 APPLIC TOPICAL ×2 (10:10→21:16)
[2024-03-29] MEDS: Ferrous Sulfate 325 MG Tablet PO (13:26)
[2024-03-29 15:40] VITALS: BP 135/55; PULSE 59; RESP 16; TEMP 36.8; O2SAT 95
[2024-03-29 16:47] VITALS: PULSE 62
[2024-03-29] MEDS: Metoprolol(XL)Succ 25 MG Tablet PO (16:47)
[2024-03-29] MEDS: tiZANidine HCl 2 MG Tablet 4 MG PO (21:15)
[2024-03-29] MEDS: Atorvastatin Calcium 40 MG Tablet PO (21:16)
[2024-03-30] MEDS: Acetaminophen 500 MG Tablet 1000 MG PO ×3 (06:04→21:35)
[2024-03-30 06:44] LABS: Bedside Glucose 142 mg/dL (74-106)
[2024-03-30] MEDS: Potassium Chloride Oral Tablet 20 MEQ PO ×2 (08:00→16:47)
[2024-03-30] MEDS: Glimepiride 2 MG Tablet PO (08:04)
[2024-03-30] MEDS: Gabapentin 100 MG Capsule PO ×3 (08:04→16:46)
[2024-03-30] MEDS: Glucerna Shake 120 ML LIQUID PO ×2 (08:08→12:44)
[2024-03-30] MEDS: Furosemide 40 MG Tablet PO (09:56)
[2024-03-30] MEDS: Tolterodine Tartrate 2 MG CAP.SA PO (09:57)
[2024-03-30] MEDS: Magnesium Chloride 64 MG Delay Rel.Tablet 128 MG PO (09:57)
[2024-03-30] MEDS: Sertraline 50 MG Tablet 25 MG PO (09:58)
[2024-03-30] MEDS: Clopidogrel Bisulfate 75 MG Tablet PO (09:58)
[2024-03-30] MEDS: Menthol/Lanolin/Calamine/Znox 113 GM Tube 1 APPLIC TOPICAL ×2 (10:02→21:35)
[2024-03-30] MEDS: tiZANidine HCl 2 MG Tablet 4 MG PO ×2 (11:08→22:00)
[2024-03-30] MEDS: Ferrous Sulfate 325 MG Tablet PO (12:44)
[2024-03-30 15:30] VITALS: BP 134/52; PULSE 65; RESP 15; TEMP 36.4; O2SAT 96
[2024-03-30 16:47] VITALS: PULSE 65
[2024-03-30] MEDS: Metoprolol(XL)Succ 25 MG Tablet PO (16:47)
[2024-03-30] MEDS: oxyCODONE 5 MG Tablet 10 MG PO ×2 (16:52→21:34)
[2024-03-30] MEDS: Atorvastatin Calcium 40 MG Tablet PO (21:35)
[2024-03-31] MEDS: Acetaminophen 500 MG Tablet 1000 MG PO ×3 (05:24→21:33)
[2024-03-31 06:00] VITALS: BMI 24.5
[2024-03-31 06:26] LABS: Bedside Glucose 109 mg/dL (74-106)
[2024-03-31 08:08] VITALS: BP 161/66; PULSE 63; RESP 17; TEMP 36.8; O2SAT 96
[2024-03-31] MEDS: Gabapentin 100 MG Capsule PO ×3 (08:09→17:25)
[2024-03-31] MEDS: Potassium Chloride Oral Tablet 20 MEQ PO ×2 (08:10→17:25)
[2024-03-31] MEDS: Menthol/Lanolin/Calamine/Znox 113 GM Tube 1 APPLIC TOPICAL ×2 (08:10→21:33)
[2024-03-31] MEDS: Glimepiride 2 MG Tablet PO (08:10)
[2024-03-31] MEDS: Magnesium Chloride 64 MG Delay Rel.Tablet 128 MG PO (08:11)
[2024-03-31] MEDS: Furosemide 40 MG Tablet PO (08:11)
[2024-03-31] MEDS: Tolterodine Tartrate 2 MG CAP.SA PO (08:11)
[2024-03-31] MEDS: Clopidogrel Bisulfate 75 MG Tablet PO (08:12)
[2024-03-31] MEDS: Senna/Docusate Sodium 1 Tablet 2 TABLET PO (08:12)
[2024-03-31] MEDS: Sertraline 50 MG Tablet 25 MG PO (08:12)
[2024-03-31] MEDS: Glucerna Shake 120 ML LIQUID PO ×3 (08:16→17:25)
[2024-03-31] MEDS: oxyCODONE 5 MG Tablet 10 MG PO ×2 (10:29→21:33)
[2024-03-31] MEDS: Ferrous Sulfate 325 MG Tablet PO (12:09)
[2024-03-31 17:21] VITALS: BP 171/70; PULSE 68
[2024-03-31 17:25] VITALS: PULSE 68
[2024-03-31] MEDS: Metoprolol(XL)Succ 25 MG Tablet PO (17:25)
[2024-03-31 18:59] VITALS: BP 156/63; PULSE 58; RESP 16
[2024-03-31] MEDS: Atorvastatin Calcium 40 MG Tablet PO (21:33)
[2024-03-31] MEDS: tiZANidine HCl 2 MG Tablet 4 MG PO (21:33)
[2024-04-01] MEDS: Acetaminophen 500 MG Tablet 1000 MG PO ×3 (05:45→21:31)
[2024-04-01 06:00] VITALS: BMI 24.7
[2024-04-01 06:19] LABS: Bedside Glucose 106 mg/dL (74-106)
[2024-04-01 08:20] VITALS: BP 154/56; PULSE 64; RESP 17; TEMP 36.9; O2SAT 94
[2024-04-01] MEDS: Gabapentin 100 MG Capsule PO ×3 (08:21→17:40)
[2024-04-01] MEDS: Potassium Chloride Oral Tablet 20 MEQ PO ×2 (08:22→17:39)
[2024-04-01] MEDS: Glimepiride 2 MG Tablet PO (08:22)
[2024-04-01] MEDS: Tolterodine Tartrate 2 MG CAP.SA PO (08:22)
[2024-04-01] MEDS: Magnesium Chloride 64 MG Delay Rel.Tablet 128 MG PO (08:22)
[2024-04-01] MEDS: Furosemide 40 MG Tablet PO (08:22)
[2024-04-01] MEDS: Clopidogrel Bisulfate 75 MG Tablet PO (08:23)
[2024-04-01] MEDS: Sertraline 50 MG Tablet 25 MG PO (08:23)
[2024-04-01] MEDS: Glucerna Shake 120 ML LIQUID PO ×2 (08:26→13:08)
[2024-04-01] MEDS: Menthol/Lanolin/Calamine/Znox 113 GM Tube 1 APPLIC TOPICAL ×2 (08:27→21:32)
[2024-04-01] MEDS: oxyCODONE 5 MG Tablet 10 MG PO ×2 (08:27→21:38)
[2024-04-01] MEDS: Ferrous Sulfate 325 MG Tablet PO (13:08)
[2024-04-01] MEDS: tiZANidine HCl 2 MG Tablet 4 MG PO ×2 (13:08→21:32)
[2024-04-01 17:38] VITALS: BP 127/60; PULSE 60
[2024-04-01 17:40] VITALS: PULSE 60
[2024-04-01] MEDS: Metoprolol(XL)Succ 25 MG Tablet PO (17:40)
[2024-04-01] MEDS: Atorvastatin Calcium 40 MG Tablet PO (21:31)
[2024-04-02 02:00] VITALS: PULSE 64; RESP 18; O2SAT 93
[2024-04-02 06:00] VITALS: BMI 24.7
[2024-04-02 06:15] LABS: International Normalized Ratio 1.1; Prothrombin Time (Protime)PT. 14.2 SECONDS (11.7-14.9)
[2024-04-02] MEDS: Acetaminophen 500 MG Tablet 1000 MG PO ×3 (06:33→21:12)
[2024-04-02 06:38] LABS: Bedside Glucose 114 mg/dL (74-106)
[2024-04-02] MEDS: oxyCODONE 5 MG Tablet 10 MG PO ×4 (06:39→21:16)
[2024-04-02 07:57] LABS: Absolute Lymphocyte Count 1.45 X10^3/uL (0.83-4.51); Absolute Neutrophil Count 2.8 X10^3/uL (2.0-7.7); Basophil# 0.05 X10^3/uL; Basophil% 0.9 % (0-1); Eosinophil# 0.19 X10^3/uL; Eosinophils% 3.5 % (0-5); Hemoglobin 11.9 g/dL (12.0-15.0); Lymphocyte # 1.45 X10^3/ul (0.83-4.51); Lymphocyte % 27.1 % (19-41); Mean Corp Hgb Conc 32.2 g/dL (32-36); Mean Corpuscular Hgb 29.4 pg (27.0-32.0); Mean Corpuscular Volume 91.4 fL (81-99); Mean Platelet Vol. 9.1 fl (6.2-12.0); Monocyte# 0.85 X10^3/uL; Monocyte% 15.9 % (0-10); NRBC Flagged by Analyzer 0.4 % (0-5); Neutrophil % 52.2 % (47-70); Platelet Count 386 K/mm3 (150-450); RBC Distribution Width CV 16.4 % (11.6-14.6); Red Blood Count 4.05 M/mm3 (4.2-5.4); White Blood Count 5.4 K/mm3 (4.4-11.0)
[2024-04-02 08:00] VITALS: BP 164/62; PULSE 64; RESP 18; TEMP 36.3; O2SAT 93
[2024-04-02] MEDS: Magnesium Chloride 64 MG Delay Rel.Tablet 128 MG PO (08:33)
[2024-04-02] MEDS: Sertraline 50 MG Tablet 25 MG PO (08:34)
[2024-04-02] MEDS: Furosemide 40 MG Tablet PO (08:34)
[2024-04-02] MEDS: Glimepiride 2 MG Tablet PO (08:34)
[2024-04-02] MEDS: Potassium Chloride Oral Tablet 20 MEQ PO ×2 (08:34→17:28)
[2024-04-02] MEDS: Clopidogrel Bisulfate 75 MG Tablet PO (08:34)
[2024-04-02] MEDS: Tolterodine Tartrate 2 MG CAP.SA PO (08:34)
[2024-04-02] MEDS: Menthol/Lanolin/Calamine/Znox 113 GM Tube 1 APPLIC TOPICAL ×2 (08:35→21:11)
[2024-04-02] MEDS: Gabapentin 100 MG Capsule PO ×3 (08:39→17:28)
[2024-04-02] MEDS: Glucerna Shake 120 ML LIQUID PO ×2 (08:42→12:54)
[2024-04-02] MEDS: Ferrous Sulfate 325 MG Tablet PO (12:54)
[2024-04-02 15:10] VITALS: BP 162/79; PULSE 67; RESP 16; TEMP 36; O2SAT 96
[2024-04-02 17:29] VITALS: BP 160/74; PULSE 64
[2024-04-02] MEDS: Metoprolol(XL)Succ 25 MG Tablet PO (17:29)
[2024-04-02] MEDS: Atorvastatin Calcium 40 MG Tablet PO (21:11)
[2024-04-02] MEDS: tiZANidine HCl 2 MG Tablet 4 MG PO (21:16)
[2024-04-03] MEDS: Acetaminophen 500 MG Tablet 1000 MG PO ×3 (05:00→20:49)
[2024-04-03 05:48] LABS: Absolute Lymphocyte Count 1.62 X10^3/uL (0.83-4.51); Absolute Neutrophil Count 2.6 X10^3/uL (2.0-7.7); Basophil# 0.06 X10^3/uL; Basophil% 1.1 % (0-1); Eosinophil# 0.21 X10^3/uL; Eosinophils% 3.9 % (0-5); Hematocrit 37.7 % (37-47); Lymphocyte # 1.62 X10^3/ul (0.83-4.51); Lymphocyte % 30.2 % (19-41); Mean Corp Hgb Conc 31.8 g/dL (32-36); Mean Corpuscular Hgb 28.9 pg (27.0-32.0); Mean Corpuscular Volume 90.8 fL (81-99); Mean Platelet Vol. 8.9 fl (6.2-12.0); Monocyte# 0.85 X10^3/uL; Monocyte% 15.9 % (0-10); NRBC Flagged by Analyzer 0 % (0-5); Neutrophil % 48.5 % (47-70); Platelet Count 361 K/mm3 (150-450); RBC Distribution Width CV 16.4 % (11.6-14.6); RBC Distribution Width SD 54.6 fl (35.1-43.9); Red Blood Count 4.15 M/mm3 (4.2-5.4); White Blood Count 5.4 K/mm3 (4.4-11.0)
[2024-04-03 06:09] LABS: Anion Gap 7 (5-15); BUN 33 mg/dL (7-18); Calcium,Total 9.4 mg/dL (8.5-10.1); Chloride 108 mmol/L (98-107); Creatinine, Serum 0.77 mg/dL (0.55-1.02); EST Glomerular Filtration Rate 76 mL/min (>60); Est Glom Filt Rate - Afr Amer 92 mL/min (>60); Estimated Creatinine Clearance 46.93 ml/min; Glucose 89 mg/dL (74-106); Potassium 3.6 mmol/L (3.5-5.1); Sodium Level 138 mmol/L (136-145)
[2024-04-03 06:22] LABS: Bedside Glucose 98 mg/dL (74-106)
[2024-04-03 08:30] VITALS: BP 152/59; PULSE 65; RESP 16; TEMP 36.3; O2SAT 96
[2024-04-03] MEDS: oxyCODONE 5 MG Tablet 10 MG PO ×2 (09:23→20:47)
[2024-04-03] MEDS: Gabapentin 100 MG Capsule PO ×3 (09:23→17:22)
[2024-04-03] MEDS: Clopidogrel Bisulfate 75 MG Tablet PO (09:24)
[2024-04-03] MEDS: tiZANidine HCl 2 MG Tablet 4 MG PO ×2 (09:24→17:17)
[2024-04-03] MEDS: Sertraline 50 MG Tablet 25 MG PO (09:24)
[2024-04-03] MEDS: Glimepiride 2 MG Tablet PO (09:24)
[2024-04-03] MEDS: Magnesium Chloride 64 MG Delay Rel.Tablet 128 MG PO (09:24)
[2024-04-03] MEDS: Furosemide 40 MG Tablet PO (09:25)
[2024-04-03] MEDS: Glucerna Shake 120 ML LIQUID PO ×3 (09:25→17:15)
[2024-04-03] MEDS: Potassium Chloride Oral Tablet 20 MEQ PO ×2 (09:25→17:16)
[2024-04-03] MEDS: Tolterodine Tartrate 2 MG CAP.SA PO (09:25)
[2024-04-03] MEDS: Menthol/Lanolin/Calamine/Znox 113 GM Tube 1 APPLIC TOPICAL ×2 (09:26→20:49)
[2024-04-03] MEDS: Ferrous Sulfate 325 MG Tablet PO (12:05)
[2024-04-03 17:16] VITALS: BP 150/62; PULSE 66
[2024-04-03] MEDS: Metoprolol(XL)Succ 25 MG Tablet PO (17:16)
[2024-04-03 20:00] VITALS: PULSE 60; O2SAT 96
[2024-04-03] MEDS: Atorvastatin Calcium 40 MG Tablet PO (20:49)
[2024-04-04] MEDS: Acetaminophen 500 MG Tablet 1000 MG PO ×3 (05:32→21:07)
[2024-04-04 06:00] VITALS: BMI 24.4
[2024-04-04 06:48] LABS: Bedside Glucose 109 mg/dL (74-106)
[2024-04-04] MEDS: Potassium Chloride Oral Tablet 20 MEQ PO ×2 (10:39→16:28)
[2024-04-04] MEDS: Gabapentin 100 MG Capsule PO ×3 (10:39→16:30)
[2024-04-04] MEDS: Glimepiride 2 MG Tablet PO (10:39)
[2024-04-04] MEDS: Menthol/Lanolin/Calamine/Znox 113 GM Tube 1 APPLIC TOPICAL ×2 (10:40→21:08)
[2024-04-04] MEDS: Tolterodine Tartrate 2 MG CAP.SA PO (10:40)
[2024-04-04] MEDS: Furosemide 40 MG Tablet PO (10:41)
[2024-04-04] MEDS: Sertraline 50 MG Tablet 25 MG PO (10:41)
[2024-04-04] MEDS: Magnesium Chloride 64 MG Delay Rel.Tablet 128 MG PO (10:41)
[2024-04-04] MEDS: Clopidogrel Bisulfate 75 MG Tablet PO (10:41)
[2024-04-04 10:47] VITALS: BP 166/56; PULSE 65; RESP 18; TEMP 36.7; O2SAT 95
[2024-04-04] MEDS: Ferrous Sulfate 325 MG Tablet PO (12:55)
[2024-04-04] MEDS: Pantoprazole Sodium 40 MG Tablet PO ×2 (12:55→21:07)
[2024-04-04] MEDS: Glucerna Shake 120 ML LIQUID PO ×2 (12:55→16:30)
[2024-04-04 16:28] VITALS: BP 175/71; PULSE 61
[2024-04-04] MEDS: Metoprolol(XL)Succ 25 MG Tablet PO (16:28)
[2024-04-04] MEDS: oxyCODONE 5 MG Tablet 10 MG PO ×2 (16:30→23:20)
[2024-04-04] MEDS: Atorvastatin Calcium 40 MG Tablet PO (21:07)
[2024-04-05] MEDS: Acetaminophen 500 MG Tablet 1000 MG PO ×3 (05:39→20:23)
[2024-04-05 06:00] VITALS: BMI 24.4
[2024-04-05 06:28] LABS: Bedside Glucose 110 mg/dL (74-106)
[2024-04-05 06:48] LABS: International Normalized Ratio 1.1; Prothrombin Time (Protime)PT. 14.1 SECONDS (11.7-14.9)
[2024-04-05 07:57] LABS: Absolute Lymphocyte Count 1.39 X10^3/uL (0.83-4.51); Absolute Neutrophil Count 4.1 X10^3/uL (2.0-7.7); Basophil# 0.05 X10^3/uL; Basophil% 0.8 % (0-1); Eosinophil# 0.18 X10^3/uL; Eosinophils% 2.7 % (0-5); Hematocrit 39.1 % (37-47); Hemoglobin 12.3 g/dL (12.0-15.0); Lymphocyte # 1.39 X10^3/ul (0.83-4.51); Lymphocyte % 21.1 % (19-41); Mean Corp Hgb Conc 31.5 g/dL (32-36); Mean Corpuscular Hgb 28.8 pg (27.0-32.0); Mean Corpuscular Volume 91.6 fL (81-99); Mean Platelet Vol. 9.2 fl (6.2-12.0); Monocyte# 0.83 X10^3/uL; Monocyte% 12.6 % (0-10); NRBC Flagged by Analyzer 0 % (0-5); Neutrophil # 4.12 X10^3/uL (2.7-7.7); Neutrophil % 62.5 % (47-70); Platelet Count 307 K/mm3 (150-450); RBC Distribution Width CV 16.3 % (11.6-14.6); RBC Distribution Width SD 54.7 fl (35.1-43.9); Red Blood Count 4.27 M/mm3 (4.2-5.4); White Blood Count 6.6 K/mm3 (4.4-11.0)
[2024-04-05] MEDS: Glucerna Shake 120 ML LIQUID PO (08:14)
[2024-04-05] MEDS: oxyCODONE 5 MG Tablet 10 MG PO ×2 (08:15→20:24)
[2024-04-05] MEDS: Gabapentin 100 MG Capsule PO ×3 (08:15→17:27)
[2024-04-05] MEDS: Potassium Chloride Oral Tablet 20 MEQ PO ×2 (08:16→17:29)
[2024-04-05] MEDS: Glimepiride 2 MG Tablet PO (08:16)
[2024-04-05] MEDS: Menthol/Lanolin/Calamine/Znox 113 GM Tube 1 APPLIC TOPICAL ×2 (08:17→20:31)
[2024-04-05] MEDS: Furosemide 40 MG Tablet PO (08:18)
[2024-04-05] MEDS: Clopidogrel Bisulfate 75 MG Tablet PO (08:18)
[2024-04-05] MEDS: Magnesium Chloride 64 MG Delay Rel.Tablet 128 MG PO (08:18)
[2024-04-05] MEDS: Tolterodine Tartrate 2 MG CAP.SA PO (08:18)
[2024-04-05] MEDS: Pantoprazole Sodium 40 MG Tablet PO ×2 (08:19→20:23)
[2024-04-05] MEDS: Sertraline 50 MG Tablet 25 MG PO (08:19)
[2024-04-05 08:32] VITALS: BP 141/57; PULSE 65; O2SAT 94
[2024-04-05] MEDS: Ferrous Sulfate 325 MG Tablet PO (11:21)
[2024-04-05 13:45] VITALS: PULSE 67; RESP 18; O2SAT 96
[2024-04-05 15:22] VITALS: RESP 18; TEMP 36.5
[2024-04-05] MEDS: Warfarin 0.5 MG Tablet 3.5 MG PO (17:29)
[2024-04-05 17:32] VITALS: BP 143/59; PULSE 78
[2024-04-05] MEDS: Metoprolol(XL)Succ 25 MG Tablet PO (17:32)
[2024-04-05 17:38] VITALS: BP 143/59; PULSE 78
[2024-04-05] MEDS: Atorvastatin Calcium 40 MG Tablet PO (20:24)
[2024-04-06 06:00] VITALS: BMI 24.7
[2024-04-06] MEDS: Acetaminophen 500 MG Tablet 1000 MG PO ×3 (06:08→20:32)
[2024-04-06 06:17] LABS: Bedside Glucose 116 mg/dL (74-106)
[2024-04-06 08:00] VITALS: BP 161/65; PULSE 67; RESP 18; TEMP 36.6; O2SAT 97
[2024-04-06] MEDS: Tolterodine Tartrate 2 MG CAP.SA PO (08:50)
[2024-04-06] MEDS: Clopidogrel Bisulfate 75 MG Tablet PO (08:50)
[2024-04-06] MEDS: Magnesium Chloride 64 MG Delay Rel.Tablet 128 MG PO (08:50)
[2024-04-06] MEDS: Glimepiride 2 MG Tablet PO (08:50)
[2024-04-06] MEDS: Potassium Chloride Oral Tablet 20 MEQ PO ×2 (08:50→17:16)
[2024-04-06] MEDS: Furosemide 40 MG Tablet PO (08:50)
[2024-04-06] MEDS: Pantoprazole Sodium 40 MG Tablet PO ×2 (08:50→20:32)
[2024-04-06] MEDS: Sertraline 50 MG Tablet 25 MG PO (08:50)
[2024-04-06] MEDS: Menthol/Lanolin/Calamine/Znox 113 GM Tube 1 APPLIC TOPICAL ×2 (08:51→20:32)
[2024-04-06] MEDS: Senna/Docusate Sodium 1 Tablet 2 TABLET PO (08:51)
[2024-04-06] MEDS: Gabapentin 100 MG Capsule PO ×3 (08:54→17:16)
[2024-04-06] MEDS: oxyCODONE 5 MG Tablet 10 MG PO ×2 (08:54→12:58)
[2024-04-06] MEDS: Ferrous Sulfate 325 MG Tablet PO (11:52)
[2024-04-06 14:15] VITALS: PULSE 67; RESP 18; O2SAT 97
[2024-04-06 17:16] VITALS: BP 159/64; PULSE 72
[2024-04-06] MEDS: Metoprolol(XL)Succ 25 MG Tablet PO (17:16)
[2024-04-06] MEDS: Glucerna Shake 120 ML LIQUID PO (17:17)
[2024-04-06 17:20] VITALS: BP 159/64; PULSE 64
[2024-04-06] MEDS: Atorvastatin Calcium 40 MG Tablet PO (20:32)
[2024-04-07 06:00] VITALS: BMI 24.3
[2024-04-07] MEDS: Acetaminophen 500 MG Tablet 1000 MG PO ×3 (06:23→21:14)
[2024-04-07 06:40] LABS: Bedside Glucose 146 mg/dL (74-106)
[2024-04-07] MEDS: Glucerna Shake 120 ML LIQUID PO ×3 (09:13→18:03)
[2024-04-07] MEDS: Furosemide 40 MG Tablet PO (09:13)
[2024-04-07] MEDS: Magnesium Chloride 64 MG Delay Rel.Tablet 128 MG PO (09:13)
[2024-04-07] MEDS: Gabapentin 100 MG Capsule PO ×3 (09:13→17:02)
[2024-04-07] MEDS: Pantoprazole Sodium 40 MG Tablet PO ×2 (09:13→21:14)
[2024-04-07] MEDS: Tolterodine Tartrate 2 MG CAP.SA PO (09:13)
[2024-04-07] MEDS: Glimepiride 2 MG Tablet PO (09:13)
[2024-04-07] MEDS: Clopidogrel Bisulfate 75 MG Tablet PO (09:13)
[2024-04-07] MEDS: Menthol/Lanolin/Calamine/Znox 113 GM Tube 1 APPLIC TOPICAL ×2 (09:14→21:25)
[2024-04-07] MEDS: Potassium Chloride Oral Tablet 20 MEQ PO ×2 (09:14→17:02)
[2024-04-07] MEDS: Sertraline 50 MG Tablet 25 MG PO (09:14)
[2024-04-07 09:20] VITALS: BP 167/65; PULSE 68
[2024-04-07] MEDS: oxyCODONE 5 MG Tablet 10 MG PO ×2 (10:34→21:24)
[2024-04-07] MEDS: Ferrous Sulfate 325 MG Tablet PO (11:56)
[2024-04-07 16:00] VITALS: BP 158/72; PULSE 73; RESP 18; TEMP 36.6; O2SAT 95
[2024-04-07 17:01] VITALS: BP 158/72; PULSE 73
[2024-04-07] MEDS: Metoprolol(XL)Succ 25 MG Tablet PO (17:01)
[2024-04-07] MEDS: Atorvastatin Calcium 40 MG Tablet PO (21:14)
[2024-04-07] MEDS: tiZANidine HCl 2 MG Tablet 4 MG PO (21:27)
[2024-04-07 21:55] VITALS: PULSE 87; RESP 16; O2SAT 96
[2024-04-08 06:00] VITALS: BMI 24.5
[2024-04-08] MEDS: Acetaminophen 500 MG Tablet 1000 MG PO (06:23)
[2024-04-08 06:56] LABS: Bedside Glucose 125 mg/dL (74-106)
[2024-04-08] MEDS: Potassium Chloride Oral Tablet 20 MEQ PO (08:15)
[2024-04-08] MEDS: Glucerna Shake 120 ML LIQUID PO (08:15)
[2024-04-08] MEDS: Gabapentin 100 MG Capsule PO (08:16)
[2024-04-08] MEDS: Magnesium Chloride 64 MG Delay Rel.Tablet 128 MG PO (08:17)
[2024-04-08] MEDS: Tolterodine Tartrate 2 MG CAP.SA PO (08:17)
[2024-04-08] MEDS: Sertraline 50 MG Tablet 25 MG PO (08:17)
[2024-04-08] MEDS: Glimepiride 2 MG Tablet PO (08:17)
[2024-04-08] MEDS: Clopidogrel Bisulfate 75 MG Tablet PO (08:17)
[2024-04-08] MEDS: Furosemide 40 MG Tablet PO (08:18)
[2024-04-08] MEDS: Pantoprazole Sodium 40 MG Tablet PO (08:18)
[2024-04-08] MEDS: Menthol/Lanolin/Calamine/Znox 113 GM Tube 1 APPLIC TOPICAL (08:23)
[2024-04-08 10:49] VITALS: BP 132/67; PULSE 70; RESP 18; TEMP 36.7; O2SAT 96
[2024-04-08 11:10] LABS: International Normalized Ratio 1.2; Prothrombin Time (Protime)PT. 15.6 SECONDS (11.7-14.9)
[2024-04-08] MEDS: oxyCODONE 5 MG Tablet 10 MG PO (11:33)
[2024-04-08] MEDS: Ferrous Sulfate 325 MG Tablet PO (11:33)
== END 2024-04-08 11:40 | disposition home health service (06) | DRG 559 ==
PROVIDERS: Admitting Provider Family Medicine Geriatric Medicine; PCP Internal Medicine; Referring Provider Family Medicine Geriatric Medicine; Visit Provider Family Medicine Geriatric Medicine
DX: Z47.81 Encounter for orthopedic aftercare following surgical amputation (principal); K25.4 Chronic or unspecified gastric ulcer with hemorrhage; I70.261 Atherosclerosis of native arteries of extremities with gangrene, right leg; E44.1 Mild protein-calorie malnutrition; D62 Acute posthemorrhagic anemia; I42.0 Dilated cardiomyopathy; E11.52 Type 2 diabetes mellitus with diabetic peripheral angiopathy with gangrene; I50.22 Chronic systolic (congestive) heart failure; M86.171 Other acute osteomyelitis, right ankle and foot; G54.6 Phantom limb syndrome with pain; I48.91 Unspecified atrial fibrillation; I11.0 Hypertensive heart disease with heart failure; F32.A Depression, unspecified; E11.40 Type 2 diabetes mellitus with diabetic neuropathy, unspecified; E78.5 Hyperlipidemia, unspecified; E83.42 Hypomagnesemia; J30.9 Allergic rhinitis, unspecified; E87.6 Hypokalemia; M62.838 Other muscle spasm; K21.9 Gastro-esophageal reflux disease without esophagitis; Z89.421 Acquired absence of other right toe(s); F41.9 Anxiety disorder, unspecified; K26.9 Duodenal ulcer, unspecified as acute or chronic, without hemorrhage or perforation; Z79.84 Long term (current) use of oral hypoglycemic drugs; N32.81 Overactive bladder; Z79.899 Other long term (current) drug therapy; Z79.02 Long term (current) use of antithrombotics/antiplatelets; Z23 Encounter for immunization; Z79.01 Long term (current) use of anticoagulants; Z68.24 Body mass index [BMI] 24.0-24.9, adult
CPT/HCPCS: 36415; 36430; 80048; 82274; 82962; 85025; 85610; 86850; 86900; 86901; 86920; 86922; 87811; 90677; 97110; 97116; 97162; 97166; 97530; 97535; 97542; 97802; J7040; P9016; A4216; J1940; J2405

== ENCOUNTER 2024-04-04 07:56 | Day surgery (SDC) | payer MEDICARE, SELFPAY ==
[2024-04-04] VITALS (7 sets, daily range): BP systolic 116–172; BP diastolic 50–74; PULSE 60–67; RESP 16; TEMP 36.7–36.9; O2SAT 94–99; BMI 24.4
[2024-04-04 08:28] LABS: Bedside Glucose 131 mg/dL (74-106)
--- NOTE | 2024-04-04 08:53 | PRE.ANES_ITS ---
ASA Classification* ASA Classification ASA Classification: 3 Assessment & Plan Anesthesia* Anesthesia Assessment Anesthesia Assessment: Discussed sedation and/or anesthesia options, risks, benefits, and alternatives with patient/parents/legal guardian/POA. Questions invited. The patient/parents/legal guardian/POA seems to understand and agrees to proceed with anesthesia plan. Reviewed the physical assessment, medical history, allergy history and patient home medications list prior to surgery/procedure/anesthetic and documented any changes. Performed airway and anesthesia risk assessments. Anesthesia Type Anesthesia Type: MAC Anesthesia Focused Assessment* Temperature: 98.4 F Pulse Rate: 67 Blood Pressure: 172/66 Respiratory Rate: 16 Pulse Ox: 99 Airway Assessment Mouth opens: >3 cm Mallampati Score: II Focused Labs Anesthesia Preop lab: CBC WBC 5.4 K/mm3 (4.4-11.0) 04/03/24 05:10 RBC 4.15 M/mm3 (4.2-5.4) L 04/03/24 05:10 Hgb 12.0 g/dL (12.0-15.0) 04/03/24 05:10 Hct 37.7 % (37-47) 04/03/24 05:10 Plt Count 361 K/mm3 (150-450) 04/03/24 05:10 CHEMISTRY Potassium 3.6 mmol/L (3.5-5.1) 04/03/24 05:10 Sodium 138 mmol/L (136-145) 04/03/24 05:10 Magnesium 2.3 mg/dL (1.6-2.6) 03/08/24 05:15 Phosphorus 4.1 mg/dL (2.5-4.9) 03/08/24 05:15 BUN 33 mg/dL (7-18) H 04/03/24 05:10 Creatinine 0.77 mg/dL (0.55-1.02) 04/03/24 05:10 Glucose 89 mg/dL (74-106) 04/03/24 05:10 POC Glucose 131 mg/dL (74-106) H 04/04/24 08:02 TSH 5.590 uIU/mL (0.358-3.740) H 03/08/24 05:15 COAG PT 14.2 SECONDS (11.7-14.9) 04/02/24 05:11 Pre-Assessment Diagnosis/Proposed Procedure Planned Operative Procedure(s): EGD Anesthesia History Anesthesia History - parent educator: Anesthesia History - parent educator Hx Hospitalization Yes 04/04/24 08:05 Any Problems With Anesthesia No 04/04/24 08:05 Cholinesterase deficiency No 04/04/24 08:05 You/Your Family Experience No 04/04/24 08:05 fever (hyperthermia) with Relationship Recent Exposure to Contagious No 04/04/24 08:05 Disease Does patient have nerve No 04/04/24 08:05 stimulator Patient instructed to have device shut off --Does patient have Pacemaker No 04/04/24 08:05 or ICD? When Was Last Pacemaker Check QUESTION #4 FULL TEXT: You/Your Family Experience fever (hyperthermia) with Anesthesia Last Oral Intake Last Oral intake: Last Oral Intake NPO since 00:00 04/04/24 08:05 Meds taken in AM with sips of water? Meds patient instructed to take am of surgery PONV PONV - parent educator: PONV - parent educator Female Yes 04/04/24 08:05 HX of Motion Sickness No 04/04/24 08:05 HX of N/V After Surgery No 04/04/24 08:05 Non-Smoker Yes 04/04/24 08:05 Duration of Surgery greater No 04/04/24 08:05 than 60 minutes Number of Risk Factors 2 04/04/24 08:05 PONV Score Moderate Risk 04/04/24 08:05 Height & Weight Height & Weight: Anesthesia: Height & Weight Height 5 ft 3 in 04/04/24 08:05 Weight: 62.596 kg 04/04/24 08:05 Body Mass Index (BMI) 24.4 04/04/24 08:05 Respiratory Assessment Respiratory Assessment - parent educator: Respiratory Tract Infection Hx - parent educator Hx Respiratory Tract Infection No 04/04/24 08:05 STOP Sleep Apnea STOP Sleep Apnea - parent educator: STOP Sleep Apnea - parent educator Hx Hypertension Yes 04/04/24 08:05 Hx Sleep Apnea No 04/04/24 08:05 CPAP No 03/12/24 18:43 BIPAP No 01/27/24 14:35 Do you snore loudly (louder No 04/04/24 08:05 than talking or can be heard Do you often feel tired/ No 04/04/24 08:05 fatigued/ sleepy during daytime? Has anyone observed you stop No 04/04/24 08:05 breathing during sleep? STOP Results Negative 04/04/24 08:05 QUESTION #5 FULL TEXT : Do you snore loudly (louder than talking or can be heard through closed doors)? Tobacco Use History Tobacco Use History - parent educator: Tobacco Use History - parent educator Tobacco Use Smoking Status Never smoker 04/04/24 08:05 Hx Tobacco Use No 04/04/24 08:05 Years Smoking Packs Smoked per Day Smoking Cessation Date was within the last 15 years Hx Smoking Cessation Date Hx Smoking Cessation Counseling Hematologic Medial History Hematologic Hx - parent educator: Hematologic Medical Hx - community development aide Hx of Blood Transfusion Yes 04/04/24 08:05 Hx of Transfusion in last 3 Yes 04/04/24 08:05 Months Date of Last Transfusion (if 03/21/24 04/04/24 08:05 within last 3 months) Ever experience any problems No 04/04/24 08:05 with transfusion(s)? Specify any problems Hx of Preganancy in last 3 No 04/04/24 08:05 Months Nurse Filling Out Transfusion KNAPOLITA 04/04/24 08:05 & Questions: Date: 04/04/24 04/04/24 08:05 Time: 08:11 04/04/24 08:05 Patient unable to answer at this time (ie. confused, unrespo /Reproduction History /Reproductive History - parent educator: /Reproductive Hx- parent educator Hx Now Gestational Age (in weeks): EDC: Hx Hx Para Hx Section SAB No 03/15/24 01:48 PFSH Medical History Prolonged QT interval Elevated blood pressure reading without diagnosis of hypertension Dilated cardiomyopathy Factor V Leiden Anxiety Hypokalemia Acute hypoxemic respiratory failure CHF (congestive heart failure) Home Medications ?Medication ?Instructions ?Recorded ?Last Taken ?Type oxybutynin chloride 10 mg 10 mg PO DAILY bladder 09/23/23 01/27/24 History tablet,extended release 24 hr simvastatin 80 mg tablet 80 mg PO QHS cholesterol 09/23/23 01/26/24 History fluticasone propionate 50 2 spray intranasal DAILY PRN nasal 12/31/23 12/31/23 History mcg/actuation nasal congestion spray,suspension glimepiride 2 mg tablet 2 mg PO DAILY dm 12/31/23 Unknown History losartan 50 mg tablet 50 mg PO DINNER blood pressure 30 01/03/24 01/21/24 Rx days #30 tabs metoprolol succinate 50 mg 50 mg PO DAILY heart rate 1 month 01/03/24 01/21/24 Rx tablet,extended release 24 hr #30 tabs spironolactone 25 mg tablet 12.5 mg (1/2 x 25 mg) PO DAILY 01/03/24 01/21/24 Rx water pill #30 tabs acetaminophen 500 mg tablet 1,000 mg (2 x 500 mg) PO Q8 pain 01/27/24 03/19/24 14:00 Rx #0 tabs ferrous sulfate 325 mg (65 mg 325 mg PO DAILY@1200 supplement 30 02/03/24 Unknown Rx iron) tablet (FeroSul) days #30 tabs magnesium chloride 64 mg 128 mg (2 x 64 mg) PO DAILY 02/03/24 Unknown Rx (magnesium chloride) supplement 30 days #60 tabs tablet,delayed release (Mag 64) sennosides 8.6 mg-docusate sodium 2 tab PO DAILY constipation 30 02/03/24 Unknown Rx 50 mg tablet (Stimulant Laxative days #60 tabs Plus) cranberry fruit concentrate 1 tab PO DAILY supplement 03/07/24 Unknown History sertraline 25 mg tablet 25 mg PO DAILY mood 03/07/24 Unknown History warfarin 2 mg tablet 4 mg PO DAILY afib 03/07/24 Unknown History tizanidine 4 mg tablet 4 mg PO QHS PRN PRN muscle spasm 03/09/24 Unknown History clopidogrel 75 mg tablet 75 mg PO DAILY antiplatelet #0 tabs 03/19/24 03/19/24 Rx furosemide 40 mg tablet 40 mg PO DAILY water pill 30 days 03/19/24 01/27/24 Rx #60 tabs metoprolol succinate 25 mg 25 mg PO DINNER b/p #0 tabs 03/19/24 Unknown Rx tablet,extended release 24 hr oxycodone 5 mg tablet 10 mg (2 x 5 mg) PO Q4H PRN PRN 03/19/24 Unknown Rx Pain Score 4-10 3 days #36 tabs Allergy/AdvReac Type Severity Reaction Status Date / Time benazepril (From Lotensin) Allergy Mild DOESNT Verified 04/04/24 08:05 REMEMBER quinapril (From Accupril) Allergy Mild UNKNOWN Verified 04/04/24 08:05 Sulfa (Sulfonamide Allergy Mild Hives Verified 04/04/24 08:05 Antibiotics) verapamil (From Calan) Allergy Mild UNKNOWN Verified 04/04/24 08:05 Surgical History History of femoropopliteal bypass S/P carotid endarterectomy Social History household members: spouse Smoking Status: Never smoker alcohol intake: never substance use type: does not use Review of Systems (Anesthesia) ROS Narrative System reviewed and no additional complaints, except as documented.
--- NOTE | 2024-04-04 09:00 | IMM_PTH ---
PATIENT: JAROD PRITCHARD LOC: EN U#:[id number] AGE/SX: 83/F ROOM: RE04/04/[address]: Dr. Robb Giron DO : 1940 BED: DIS: 04/04/2024 SPEC #: [id number] RECD: 04/04/24 11:52 STATUS: ROBY REQ #: [id number] DIANA: 04/04/24 09:[address]: Robb Giron DEPT: IMMUNOHISTOCHEMISTRY RECD BY: Job Stone ENTERED: 04/04/24 11:53 SP TYPE: IMMUNO OTHR DR: Dr. Kendra Lucio MD Tissues: B - Gastric mucous membrane Procedures: H Pylori (initial) PHYSICIAN & INSTITUTION [place] [id number] SPECIMEN INFORMATION: Tissue Source: B- Gastric ulcer biopsy Clinical Info: Anemia Specimen Number: [id number] CPT code: 92098 METHODOLOGY: Deparaffinized sections of prefer/formalin-fixed tissue or PAP/DQ stained slides are incubated with monoclonal/polyclonal antibodies/oligonucleotide probes. Localization is made via biotin free immunoperoxidase method. Appropriate controls are performed and reacted as expected. Results on target cell population are indicated in the following table: RESULTS: ANTIBODY / CLONE RESULT Block B H Pylori (polyclonal) negative These tests were developed and their performance characteristics determined by [facility]. They may not have been cleared or approved by the U.S. Food and Drug Administration. The FDA has determined that such clearance or approval is not necessary. The above immunohistochemical/dualISH markers are ordered and reviewed by the Pathologist. INTERPRETATION: B. Gastric ulcer, biopsy: Negative for Helicobacter pylori organisms. 04/05/2024
--- NOTE | 2024-04-04 09:00 | EGD_PTH ---
PATIENT: JAROD PRITCHARD LOC: EN U#:[id number] AGE/SX: 83/F ROOM: RE04/04/[address]: Dr. Robb Giron DO : 1940 BED: DIS: 04/04/2024 SPEC #: [id number] RECD: 04/04/24 10:53 STATUS: ROBY REQ #: [id number] DIANA: 04/04/24 09:[address]: Robb Giron DEPT: SURGICAL PATHOLOGY RECD BY: Denver Wisdom ENTERED: 04/04/24 11:40 SP TYPE: EGD BIOPSY LUCY DR: Dr. Kendra Lucio MD Tissues: A - Duodenum, NOS B - Gastric mucous membrane Procedures: Surgery Specimen Level IV HEADER OPERATION: EGD with biopsy PRE-OP DIAGNOSIS: Anemia TISSUE SUBMITTED: A- Duodenum biopsy, B- Gastric ulcer biopsy MICROSCOPIC DIAGNOSIS A. Duodenum, biopsy: No pathologic change. B. Gastric ulcer, biopsy: Chronic gastritis. See comment. AM. 04/05/2024 COMMENT B. The results of immunohistochemistry for Helicobacter pylori will be reported separately ([id number]). MICROSCOPIC DESCRIPTION Slides are reviewed. GROSS DESCRIPTION A. Received in fixative is one container labeled with the patient's name and designated Duodenum biopsy. The specimen consists of two irregular fragments of light mireles soft tissue that in aggregate measure 0.7 x 0.5 x 0.1 cm. The specimen is totally submitted in one cassette. B. Received in fixative is one container labeled with the patient's name and designated Gastric ulcer biopsy. The specimen consists of two irregular fragments of light mireles soft tissue that in aggregate measure 1.0 x 0.5 x 0.1 cm. The specimen is totally submitted in one cassette. AM. 04/04/2024 TC:3 CPT:33033n4
--- NOTE | 2024-04-04 09:21 | PCM.HP.BLA ---
History and Physical Date of Admission: 04/04/24 Reason for Consultation: Anemia HPI Narrative: JAROD PRITCHARD, is a 83-year-old female history of diabetes, hypertension, factor V Leiden deficiency on Coumadin, history of dilated cardiomyopathy, history of carotid stenosis with endarterectomy who presented [facility] ED 03/07/2024 with right foot pain and discoloration. Patient seen in consultation by Dr. Blanca with podiatry as well as vascular surgery. Patient was placed on IV antibiotics and due to lack of improvement MRI obtained however this did not show any osteomyelitis. Patient taken for angiogram 03/12/2024 but this was unsuccessful, she subsequently went back to surgery due to bleeding and had evacuation of hematoma and revision with jump graft from prior femoropopliteal to PT with reversed GSV 2 compartment fasciotomy. Patient subsequently stabilized and had transmetatarsal amputation on the right foot 03/15/2024 and tolerated this well. Overall patient improved and antibiotics were stopped per ID recommendations. Patient participated with physical therapy and it was deemed she would benefit from placement so plan was for TCU. During hospitalization also of note given her factor V Leiden she was placed on full dose Lovenox Lovenox to bridge to Coumadin. On day of transfer to TCU INR 2.6, given patient therapeutic will DC Lovenox and will continue 4 mg of Coumadin. Currently she is s/p right lower leg exploration and hematoma evacuation, revision with jump graft from prior femoropopliteal bypass to PT with reversed GSV, 2 compartment fasciotomy performed secondary to right lower extremity atherosclerosis with gangrene, threatened bypass, failed prior endovascular revasc with PT perforation. She is also status post right TMA I was called to see her due to iron deficiency anemia and the need for antiplatelet and anticoagulation therapy. [facility] Medical History Prolonged QT interval Elevated blood pressure reading without diagnosis of hypertension Dilated cardiomyopathy Factor V Leiden Anxiety Hypokalemia Acute hypoxemic respiratory failure CHF (congestive heart failure) Home Medications ?Medication ?Instructions ?Recorded ?Last Taken ?Type oxybutynin chloride 10 mg 10 mg PO DAILY bladder 09/23/23 01/27/24 History tablet,extended release 24 hr simvastatin 80 mg tablet 80 mg PO QHS cholesterol 09/23/23 01/26/24 History fluticasone propionate 50 2 spray intranasal DAILY PRN nasal 12/31/23 12/31/23 History mcg/actuation nasal congestion spray,suspension glimepiride 2 mg tablet 2 mg PO DAILY dm 12/31/23 Unknown History losartan 50 mg tablet 50 mg PO DINNER blood pressure 30 01/03/24 01/21/24 Rx days #30 tabs metoprolol succinate 50 mg 50 mg PO DAILY heart rate 1 month 01/03/24 01/21/24 Rx tablet,extended release 24 hr #30 tabs spironolactone 25 mg tablet 12.5 mg (1/2 x 25 mg) PO DAILY 01/03/24 01/21/24 Rx water pill #30 tabs acetaminophen 500 mg tablet 1,000 mg (2 x 500 mg) PO Q8 pain 01/27/24 03/19/24 14:00 Rx #0 tabs ferrous sulfate 325 mg (65 mg 325 mg PO DAILY@1200 supplement 30 02/03/24 Unknown Rx iron) tablet (FeroSul) days #30 tabs magnesium chloride 64 mg 128 mg (2 x 64 mg) PO DAILY 02/03/24 Unknown Rx (magnesium chloride) supplement 30 days #60 tabs tablet,delayed release (Mag 64) sennosides 8.6 mg-docusate sodium 2 tab PO DAILY constipation 30 02/03/24 Unknown Rx 50 mg tablet (Stimulant Laxative days #60 tabs Plus) cranberry fruit concentrate 1 tab PO DAILY supplement 03/07/24 Unknown History sertraline 25 mg tablet 25 mg PO DAILY mood 03/07/24 Unknown History warfarin 2 mg tablet 4 mg PO DAILY afib 03/07/24 Unknown History tizanidine 4 mg tablet 4 mg PO QHS PRN PRN muscle spasm 03/09/24 Unknown History clopidogrel 75 mg tablet 75 mg PO DAILY antiplatelet #0 tabs 03/19/24 03/19/24 Rx furosemide 40 mg tablet 40 mg PO DAILY water pill 30 days 03/19/24 01/27/24 Rx #60 tabs metoprolol succinate 25 mg 25 mg PO DINNER b/p #0 tabs 03/19/24 Unknown Rx tablet,extended release 24 hr oxycodone 5 mg tablet 10 mg (2 x 5 mg) PO Q4H PRN PRN 03/19/24 Unknown Rx Pain Score 4-10 3 days #36 tabs Allergy/AdvReac Type Severity Reaction Status Date / Time benazepril (From Lotensin) Allergy Mild DOESNT Verified 03/07/24 20:46 REMEMBER quinapril (From Accupril) Allergy Mild UNKNOWN Verified 03/07/24 20:46 Sulfa (Sulfonamide Allergy Mild Hives Verified 03/07/24 20:46 Antibiotics) verapamil (From Calan) Allergy Mild UNKNOWN Verified 03/07/24 20:46 Surgical History History of femoropopliteal bypass S/P carotid endarterectomy Social History (Updated 03/19/24 @ 18:[address] Jason Smith MD) household members: spouse Smoking Status: Never smoker alcohol intake: never substance use type: does not use ROS Constitutional Constitutional: Reports weakness; Denies chills, fever(s) or weight gain ENT HEENT: Denies headache(s), nasal congestion or nasal discharge Cardiovascular Cardiovascular: Denies chest pain or palpitations Respiratory/Chest Respiratory/Chest: Denies cough, excessive phlegm production or shortness of breath with exertion Gastrointestinal Gastrointestinal: Denies abdominal pain, nausea or vomiting Genitourinary Genitourinary: Denies dysuria Musculoskeletal Musculoskeletal: Denies joint pain or joint swelling Integumentary Integumentary: Denies rash or wounds Neurologic Neurologic: Denies focal weakness, numbness or tingling Psychiatric Psychiatric: Denies anxiety, auditory hallucinations, depression, homicidal ideation or suicidal ideation Physical Exam Const alert General Appearance: cooperative Orientation / Consciousness: oriented to person HEENT hearing grossly normal bilaterally Head and Scalp: normal to inspection Face and Sinus: face symmetric Nose: external nose normal Mouth: oral and palatal mucosa normal Eyes conjunctivae normal General Eye: normal appearance of both eyes Neck full ROM General: normal visual inspection Lymph Lymphatic: no lymphadenopathy noted Chest inspection of chest normal and palpation of chest normal Chest: symmetrical chest wall rise Resp normal respiratory effort Effort and Inspection: able to speak in complete sentences Cardio regular rate GI non-distended Percussion: normal to percussion Rectal Exam: deferred Neuro Speech: speech normal Gait (Neuro): normal gait Medical Records Data Medical Nutrition Assessment Dietitian: Malnutrition Criteria Met Start: 03/21/24 14:34 Freq: Status: Active Protocol: Document 03/21/24 14:34 SLA (Rec: 03/21/24 14:34 SLA [id number]) Nutrition Malnutrition Evidence of Malnutrition Exists Yes Malnutrition (moderate): Acute Illness/Injury Evidenced By Suboptimal Energy Intake ( Moderate),Weight Loss (Severe) Clinical Problem Acute Disease or Injury Related Malnutrition Etiology related to recent surgery and inadequate energy intake d/t taking pain meds Signs/Symptoms as evidenced by 5.4% wt loss and <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 Lab / Micro Data 04/02/24 05:11 03/27/24 05:17 Labs: Laboratory Results - last 24 hr 04/02/24 05:11: WBC 5.4, RBC 4.05 L, Hgb 11.9 L, Hct 37.0, MCV 91.4, MCH 29.4, MCHC 32.2, RDW Std Deviation 55.0 H, RDW Coeff of Kate 16.4 H, Plt Count 386, MPV 9.1, Immature Gran % (Auto) 0.400, Neut % (Auto) 52.2, Lymph % (Auto) 27.1, [place] % (Auto) 15.9 H, Eos % (Auto) 3.5, Baso % (Auto) 0.9, Absolute Neuts (auto) 2.8, Absolute Lymphs (auto) 1.45, Nucleated RBC % 0.4, PT 14.2, INR 1.1 04/02/24 05:58: POC Glucose 114 H Micro: Microbiology 04/02/24 06:35 Nasal Secretion SARS-CoV-2 Antigen (Rapid) - Final Assessment & Plan Assessment/Plan (1) Anemia: (2) Atrial fibrillation: (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 She is also status post right TMA. She is in transitional care unit doing well. However she did have a decrease in hemoglobin and is on antiplatelet and anticoagulation therapy. Differential diagnosis does include peptic ulcer disease, angiodysplasia secondary to peripheral vascular disease, gastric antral vascular ectasia and less likely neoplasia. She should undergo an upper endoscopy to evaluate upper GI tract. If that is subsequently negative then she may need colonoscopy plus or minus capsule endoscopy. I have examined the patient and the H&P has been reviewed. There are no clinical changes since date of exam.
--- NOTE | 2024-04-04 09:48 | OP.EGD_ITS ---
Patient Name: Eri Braun Procedure Date: 04/04/2024 9:23 AM Date of : 1940 Age: 83 Procedure: Upper GI endoscopy Indications: Iron deficiency anemia Providers: Robb Giron DO Medicines: Monitored Anesthesia Care Patient Profile: This is an 83 year old female. Refer to note in patient chart for documentation of history and physical. Patient has symptoms. Complications: No immediate complications. Procedure: Pre-Anesthesia Assessment: - Prior to the procedure, a History and Physical was performed, and patient medications and allergies were reviewed. The patient is competent. The risks and benefits of the procedure and the sedation options and risks were discussed with the patient. All questions were answered and informed consent was obtained. Patient identification and proposed procedure were verified by the physician in the pre-procedure area. Mental Status Examination: alert and oriented. Airway Examination: normal oropharyngeal airway and neck mobility. Respiratory Examination: clear to auscultation. CV Examination: normal. Prophylactic Antibiotics: The patient does not require prophylactic antibiotics. Prior Anticoagulants: The patient has taken no anticoagulant or antiplatelet agents except for NSAID medication. ASA Grade Assessment: III - A patient with severe systemic disease. After reviewing the risks and benefits, the patient was deemed in satisfactory condition to undergo the procedure. The anesthesia plan was to use monitored anesthesia care (MAC). Immediately prior to administration of medications, the patient was re-assessed for adequacy to receive sedatives. The heart rate, respiratory rate, oxygen saturations, blood pressure, adequacy of pulmonary ventilation, and response to care were monitored throughout the procedure. The physical status of the patient was re-assessed after the procedure. After obtaining informed consent, the endoscope was passed under direct vision. Throughout the procedure, the patient's blood pressure, pulse, and oxygen saturations were monitored continuously. The Endoscope was introduced through the mouth, and advanced to the second part of duodenum. The upper GI endoscopy was accomplished without difficulty. The patient tolerated the procedure well. Scope In: 9:36:11 AM Scope Out: 9:42:04 AM Total Procedure Duration Time 0 hours 5 minutes 53 seconds Findings: The examined esophagus was normal. One oozing cratered gastric ulcer with a visible vessel was found in the gastric antrum. The lesion was 10 mm in largest dimension. To stop active bleeding, one hemostatic clip was successfully placed. Clip log stacker operator: Novint. There was no bleeding at the end of the procedure. Few non-bleeding linear duodenal ulcers with no stigmata of bleeding were found in the first portion of the duodenum and in the second portion of the duodenum. The largest lesion was 4 mm in largest dimension. Biopsies were taken with a cold forceps for histology. Verification of patient identification for the specimen was done. Estimated blood loss was minimal. Impression: - Normal esophagus. - Oozing gastric ulcer with a visible vessel. Clip was placed. Clip log stacker operator: [employer]. - Non-bleeding duodenal ulcers with no stigmata of bleeding. Biopsied. Recommendation: - Return patient to referring hospital for ongoing care. - Resume previous diet. - Use Protonix (pantoprazole) 40 mg PO BID. - Continue present medications. Procedure Code(s): --- Professional --- 03569, 59, Esophagogastroduodenoscopy, flexible, transoral; with control of bleeding, any method 02616, 51, Esophagogastroduodenoscopy, flexible, transoral; with biopsy, single or multiple CPT copyright 2021 [employer]. All rights reserved. The codes documented in this report are preliminary and upon plywood layup line core layer review may be revised to meet current compliance requirements. Robb Giron DO 04/04/2024 9:47:27 AM This report has been signed electronically. Number of Addenda: 0 Note Initiated On: 04/04/2024 9:23 AM
--- NOTE | 2024-04-04 09:48 | OP.CCLET_ITS ---
04/04/2024 Kendra Lucio [address] [place] [address] Re : Upper GI endoscopy procedure for Eri Braun Dear Dr. Lucio This procedure was performed on Thursday, April 04, 2024. My impressions and recommendations are as follows: Impressions : - Normal esophagus. - Oozing gastric ulcer with a visible vessel. Clip was placed. 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 - Non-bleeding duodenal ulcers with no stigmata of bleeding. Biopsied. Recommendations : - Return patient to referring hospital for ongoing care. - Resume previous diet. - Use Protonix (pantoprazole) 40 mg PO BID. - Continue present medications. My findings are described in the full procedure note, which is enclosed. If I can be of further assistance, please feel free to contact me at . Sincerely, Robb Giron, 04/04/2024 9:47:27 AM This report has been signed electronically.
--- NOTE | 2024-04-04 09:52 | PCM.POST.ANE ---
Anesthesia: Postop Eval I Current Vital Signs Temperature: 98.1 F Pulse Rate: 62 Blood Pressure: 121/50 Respiratory Rate: 16 Pulse Ox: 94 Oxygen Delivery Method: Room Air Assessment Airway patent: Yes Spontaneous unlabored respirations: Yes Mental status: Asleep nausea: No Vomiting: No Anesthesia Complication: No Fluid Hydration Crystalloid volume administer (ml): 20 Total IV fluid infused: 20 Progress Note Anesthesia document: Postop Eval 1 completed: Yes
--- NOTE | 2024-04-04 09:58 | PCM.POSTANE2 ---
Anesthesia Postop Eval I Sum Postop Eval Completion status Anesthesia document: Postop Eval 1 completed: Yes Anesthesia Postop Eval I Summary Anesthesia Postop Eval I Summary: Anesthesia Postop Eval I: Assessment Summary Airway patent Yes 04/04/24 09:53 [email or web address] Spontaneous unlabored Yes 04/04/24 09:53 [email or web address] respirations Mental status Asleep 04/04/24 09:53 [email or web address] nausea No 04/04/24 09:53 [email or web address] Vomiting No 04/04/24 09:53 [email or web address] Anesthesia Postop Eval I: Fluid Summary Crystalloid volume administer 20 04/04/24 09:53 [email or web address] (ml) Colloids volume administered ( ml) Blood Product volume administered (ml) Total IV fluid infused 20 04/04/24 09:53 [email or web address] Anesthesia Postop Eval I: Summary Notes Anesthesia Complication No 04/04/24 09:53 [email or web address] Anesthesia Complication Comment: Post-operative progress note Anesthesia: Postop Eval II Evaluation Mental status: Awake Pain Level: 0 nausea: No Vomiting: No
== END 2024-04-04 14:50 | disposition home or self-care (01) ==
LOC: EN 07:56 → AC 07:57
PROVIDERS: PCP Internal Medicine; Referring Provider Internal Medicine; Visit Provider Internal Medicine Gastroenterology
PROC: 0DJ08ZZ Inspection of Upper Intestinal Tract, Via Natural or Artificial Opening Endoscopic (ICD-10-PCS; CPT 43235; principal; 2024-04-04 08:55)
DX: K29.50 Unspecified chronic gastritis without bleeding (principal); I70.269 Atherosclerosis of native arteries of extremities with gangrene, unspecified extremity; Z89.431 Acquired absence of right foot; D68.2 Hereditary deficiency of other clotting factors; I11.0 Hypertensive heart disease with heart failure; I50.22 Chronic systolic (congestive) heart failure; I48.91 Unspecified atrial fibrillation; E11.9 Type 2 diabetes mellitus without complications; K26.9 Duodenal ulcer, unspecified as acute or chronic, without hemorrhage or perforation; K25.9 Gastric ulcer, unspecified as acute or chronic, without hemorrhage or perforation; Z79.01 Long term (current) use of anticoagulants; D50.9 Iron deficiency anemia, unspecified; Z79.899 Other long term (current) drug therapy; K21.9 Gastro-esophageal reflux disease without esophagitis; E78.5 Hyperlipidemia, unspecified
CPT/HCPCS: 43239; 82962; 88305; 88342; A4216

== ENCOUNTER → 2024-05-28 | Outpatient (CLI) | payer MEDICARE, SELFPAY ==
--- NOTE | 2024-05-28 09:02 | ADUL_ITS ---
Reason For Study: S/P Rt SFA - POP A BPG / Dist BPG Jump Graft to Distal HOUSING DIRECTOR Right Velocities Ext. Iliac Artery dist = 128.9 cm./sec. Common Femoral Artery mid = 139.9 cm./sec. Profunda Femoral Artery = 90.6 cm./sec. SFA, origin - 78.4 cm/sec. SFA prox/mid - 150.9 cm/sec. Fem-Pop Bypass Graft noted Prox Anastamosis - 137.4 cm/s Prox Graft - 72.0 cm/s Mid Graft - 59.7 cm/s Dist Graft - 62.1 cm/s Dist Anastamosis - 58.4 cm/s Dist to Graft - POP A - 174.7 cm/s. POP A Distal - 142.5 cm/s Jump Graft at knee noted BPG 2 Prox Anastomosis - 79.8 cm/s BPG 2 Prox Graft - 45.7 cm/s BPG 2 Mid Graft - 33.6 cm/s BPG 2 Dist Graft - 23.9 cm/s BPG 2 Dist anatomosis (at ankle) - 300.5 cm/s Post. Tibial Artery, prox = 38.6 cm./sec. Retrograde flow noted at Post. Tibial Artery Mid and Dist. Peroneal Artery, prox = 35.9 cm./sec. Peroneal Artery, mid = 37.7 cm./sec. Peroneal Artery,dist = 51.4 cm./sec. Ant. Tibial Artery, prox = 41.5 cm./sec. Ant. Tibial Artery, mid = 17.3 cm./sec. Ant. Tibial Artery, dist = 45.9 cm./sec. /US Art Duplex Unilat Lower Ext Interpretation Summary Patent right SFA-popliteal bypass and jump graft to distal posterior tibial art barbra. Normal velocities in SFA-popliteal bypass. Diminished velocities with jump graft and >75% stenosis at distal anastomosis. Ordering Physician: Crystal, Shaan Referring Physician: Kendra Lucio Performed By: Parker Kennedy RVT and Student
[2024-05-28 11:16] LABS: Anion Gap 6 (5-15); BUN 36 mg/dL (7-18); BUN/Creat Ratio 31.9 RATIO (10-20); Calcium,Total 9.3 mg/dL (8.5-10.1); Chloride 108 mmol/L (98-107); Creatinine, Serum 1.13 mg/dL (0.55-1.02); EST Glomerular Filtration Rate 49 mL/min (>60); Est Glom Filt Rate - Afr Amer 59 mL/min (>60); Glucose 182 mg/dL (74-106); Potassium 4.5 mmol/L (3.5-5.1); Sodium Level 136 mmol/L (136-145)
== END | disposition home or self-care (01) ==
PROVIDERS: Internal Medicine Cardiovascular Disease; PCP Internal Medicine; Referring Provider Surgery Trauma Surgery; Visit Provider Surgery Trauma Surgery
DX: Z48.812 Encounter for surgical aftercare following surgery on the circulatory system (principal); I70.261 Atherosclerosis of native arteries of extremities with gangrene, right leg; I10 Essential (primary) hypertension
CPT/HCPCS: 36415; 80048; 93926

== ENCOUNTER → 2024-06-13 | Outpatient (CLI) | payer MEDICARE, SELFPAY | END | disposition home or self-care (01) | PROVIDERS: PCP Internal Medicine; Referring Provider Physician Assistant; Visit Provider Physician Assistant | DX: K58.0 Irritable bowel syndrome with diarrhea (principal) ==

== ENCOUNTER → 2024-06-20 | Outpatient (CLI) | payer MEDICARE, SELFPAY ==
[2024-06-22 07:07] LABS: Calprotectin, Stool 412 ug/g (0-120)
== END | disposition home or self-care (01) ==
LOC: LAB 09:45
PROVIDERS: PCP Internal Medicine; Referring Provider Student in an Organized Health Care Education/Training Program; Visit Provider Student in an Organized Health Care Education/Training Program
DX: K58.9 Irritable bowel syndrome, unspecified (principal); K25.9 Gastric ulcer, unspecified as acute or chronic, without hemorrhage or perforation; R19.7 Diarrhea, unspecified
CPT/HCPCS: 83993; 87177; 87209; 87329; 87493; 87506

== ENCOUNTER → 2024-07-10 | Outpatient (CLI) | payer MEDICARE, SELFPAY ==
[2024-07-10 11:48] LABS: Anion Gap 14 (5-15); BUN 25 mg/dL (4-19); BUN/Creat Ratio 24.8 RATIO (10-20); Calcium,Total 9.6 mg/dL (7.6-11.0); Chloride 99 mmol/L (98-108); Creatinine, Serum 1.01 mg/dL (0.70-1.20); EST Glomerular Filtration Rate 55 (>60); Glucose 181 mg/dL (70-99); Potassium 2.9 mmol/L (3.3-5.1); Sodium Level 136 mmol/L (133-145)
== END | disposition home or self-care (01) ==
LOC: LAB 09:42
PROVIDERS: PCP Internal Medicine; Referring Provider Nurse Practitioner Family; Visit Provider Nurse Practitioner Family
DX: I48.20 Chronic atrial fibrillation, unspecified (principal); Z79.01 Long term (current) use of anticoagulants; I73.9 Peripheral vascular disease, unspecified
CPT/HCPCS: 36415; 80048

== ENCOUNTER → 2024-07-25 | Outpatient (CLI) | payer MEDICARE, SELFPAY ==
[2024-07-25 12:48] LABS: Anion Gap 12 (5-15); BUN 24 mg/dL (4-19); BUN/Creat Ratio 23.1 RATIO (10-20); Calcium,Total 9.7 mg/dL (7.6-11.0); Carbon Dioxide 23.3 mmol/L (21.0-32.0); Chloride 102 mmol/L (98-108); Creatinine, Serum 1.05 mg/dL (0.70-1.20); EST Glomerular Filtration Rate 52 (>60); Glucose 138 mg/dL (70-99); Potassium 4.1 mmol/L (3.3-5.1); Sodium Level 138 mmol/L (133-145)
== END | disposition home or self-care (01) ==
LOC: LAB 11:08
PROVIDERS: PCP Internal Medicine; Referring Provider Nurse Practitioner Family; Visit Provider Nurse Practitioner Family
DX: R19.7 Diarrhea, unspecified (principal); E87.6 Hypokalemia
CPT/HCPCS: 36415; 80048

== ENCOUNTER → 2024-08-15 | Outpatient (CLI) | payer MEDICARE, SELFPAY ==
[2024-08-15 10:45] LABS: Anion Gap 13 (5-15); BUN 34 mg/dL (4-19); BUN/Creat Ratio 29.1 RATIO (10-20); Calcium,Total 9.9 mg/dL (7.6-11.0); Chloride 99 mmol/L (98-108); Creatinine, Serum 1.16 mg/dL (0.70-1.20); EST Glomerular Filtration Rate 46 (>60); Glucose 148 mg/dL (70-99); Potassium 3.4 mmol/L (3.3-5.1); Sodium Level 137 mmol/L (133-145)
== END | disposition home or self-care (01) ==
LOC: LAB 09:57
PROVIDERS: PCP Internal Medicine; Referring Provider Nurse Practitioner Family; Visit Provider Nurse Practitioner Family
DX: E87.6 Hypokalemia (principal); R79.89 Other specified abnormal findings of blood chemistry
CPT/HCPCS: 36415; 80048

== ENCOUNTER 2024-08-22 11:25 | Day surgery (SDC) | payer MEDICARE, SELFPAY ==
--- NOTE | 2024-08-17 11:13 | PAT.ANESEVAL ---
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 When Was Last Pacemaker Check QUESTION #4 FULL TEXT: You/Your Family Experience fever (hyperthermia) with Anesthesia Last Oral Intake Last Oral intake: Last Oral Intake NPO since Meds taken in AM with sips of water? Meds patient instructed to take am of surgery PONV PONV - concession manager: PONV - concession manager Female Yes 08/17/24 10:51 HX of Motion Sickness No 08/17/24 10:51 HX of N/V After Surgery No 08/17/24 10:51 Non-Smoker Yes 08/17/24 10:51 Duration of Surgery greater No 08/17/24 10:51 than 60 minutes Number of Risk Factors 2 08/17/24 10:51 PONV Score Moderate Risk 08/17/24 10:51 Height & Weight Height & Weight: Anesthesia: Height & Weight Height 5 ft 3 in 06/20/24 09:55 Respiratory Assessment Respiratory Assessment - concession manager: Respiratory Tract Infection Hx - concession manager Hx Respiratory Tract Infection No 08/17/24 10:51 STOP Sleep Apnea STOP Sleep Apnea - concession manager: STOP Sleep Apnea - concession manager Hx Hypertension Yes 08/17/24 10:51 Hx Sleep Apnea No 08/17/24 10:51 CPAP No 03/12/24 18:43 BIPAP No 01/27/24 14:35 Do you snore loudly (louder Yes 08/17/24 10:51 than talking or can be heard Do you often feel tired/ No 08/17/24 10:51 fatigued/ sleepy during daytime? Has anyone observed you stop Yes 08/17/24 10:51 breathing during sleep? STOP Results Positive 08/17/24 10:51 QUESTION #5 FULL TEXT : Do you snore loudly (louder than talking or can be heard through closed doors)? 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 Specify any problems Hx of Preganancy in last 3 No 08/17/24 10:51 Months Nurse Filling Out Transfusion JZOLLLASHAY 08/17/24 10:51 & Questions: Date: 08/17/24 08/17/24 10:51 Time: 10:54 08/17/24 10:51 Patient unable to answer at this time (ie. confused, unrespo /Reproduction History /Reproductive History - concession manager: /Reproductive Hx- concession manager Hx Now No 08/17/24 10:51 Gestational Age (in weeks): EDC: Hx Hx Para Hx Section SAB No 08/17/24 10:51 PFS Medical History (Updated 08/17/24 @ 10:50 by Cherelle Mendez) Wears glasses Depression Heartburn Non-smoker On home oxygen therapy Hypertension Gastric ulcer Dilated cardiomyopathy Prolonged QT interval Elevated blood pressure reading without diagnosis of hypertension Factor V Leiden Anxiety Hypokalemia Acute hypoxemic respiratory failure CHF (congestive heart failure) Home Medications ?Medication ?Instructions ?Recorded ?Last Taken ?Type oxybutynin chloride 10 mg 10 mg PO DAILY bladder 09/23/23 01/27/24 History tablet,extended release 24 hr glimepiride 2 mg tablet 2 mg PO DAILY dm 12/31/23 Unknown History ferrous sulfate 325 mg (65 mg 325 mg PO DAILY@1200 supplement 30 02/03/24 Unknown Rx iron) tablet (FeroSul) days #30 tabs sertraline 25 mg tablet 25 mg PO DAILY mood 03/07/24 Unknown History warfarin 2 mg tablet 2 mg PO .MWF afib 03/07/24 Unknown History furosemide 40 mg tablet 40 mg PO DAILY water pill 30 days 03/19/24 01/27/24 Rx #60 tabs clopidogrel 75 mg tablet 75 mg PO DAILY 30 days #30 tabs 04/05/24 Unknown Rx pantoprazole 40 mg tablet,delayed 40 mg PO BID 30 days #60 tabs 04/05/24 Unknown Rx release tizanidine 2 mg tablet 4 mg (2 x 2 mg) PO Q8 PRN Muscle 04/05/24 Unknown Rx Spasm 30 days #180 tabs simvastatin 80 mg tablet 80 mg PO QDAY 06/20/24 Unknown History gabapentin 100 mg capsule 100 mg PO BID #0 caps 07/20/24 Unknown Rx metoprolol succinate 50 mg 50 mg PO BID #1 TAB 07/20/24 Unknown Rx tablet,extended release 24 hr potassium chloride 20 mEq 20 meq PO TID #0 tabs 07/20/24 Unknown Rx tablet,extended release(part/cryst) Cinnamon 2 tab PO BID 08/17/24 Unknown History losartan 100 1 tab PO DAILY 08/17/24 Unknown History mg-hydrochlorothiazide 12.5 mg tablet magnesium chloride 64 mg 128 mg PO DAILY 08/17/24 Unknown History (magnesium chloride) tablet,delayed release (Mag 64) warfarin 3 mg tablet 3 mg PO SUTUTHSA 08/17/24 Unknown History Allergy/AdvReac Type Severity Reaction Status Date / Time benazepril (From Lotensin) Allergy Mild DOESNT Verified 08/17/24 10:19 REMEMBER quinapril (From Accupril) Allergy Mild UNKNOWN Verified 08/17/24 10:19 Sulfa (Sulfonamide Allergy Mild Hives Verified 08/17/24 10:19 Antibiotics) verapamil (From Calan) Allergy Mild UNKNOWN Verified 08/17/24 10:19 Family History (Updated 06/12/24 @ 08:53 by Sandy Cruz) Other Asthma COPD (chronic obstructive pulmonary disease) CVA (cerebral vascular accident) Diabetes Heart disease Hypertension Myocardial infarction Surgical History (Updated 08/17/24 @ 10:50 by Cherelle Mendez) Hx of amputation History of transmetatarsal amputation of right foot History of femoropopliteal bypass S/P carotid endarterectomy Social History household members: spouse Smoking Status: Never smoker alcohol intake: never substance use type: does not use Audit: Pertinent Findings Pertinent Findings EKG Perinent findings: 05/14/2024. Atrial fibrillation. Left anterior fascicular block. Poor R wave progression. Nonspecific ST's. Consider old anterior infarct. Echo (EF%) pertinent findings: 12/31/2023. EF 35 to 40%. Mild aortic valve stenosis. Aortic valve area 1.6 cm?. Mean gradient aortic 7.4 mmHg Consult pertinent findings: Cardiology 06/20/2024. Chronic atrial fibrillation. Rate controlled on metoprolol. On warfarin. Aortic valve stenosis. Continue current medical therapy and to monitor. Recommendation Anesthesia Recommendation Anesthesia recommendation: OPTIMIZED for anesthesia
[2024-08-22] VITALS (7 sets, daily range): BP systolic 126–175; BP diastolic 49–63; PULSE 49–59; RESP 14–16; TEMP 36.1–36.2; O2SAT 94–99; BMI 26.2
[2024-08-22 11:41] LABS: INR Fingerstick 1.4; Prothrombin Time Fingerstick 16.1 SEC (11.7-14.9)
--- NOTE | 2024-08-22 11:54 | PRE.ANES_ITS ---
ASA Classification* ASA Classification ASA Classification: 3 Assessment & Plan Anesthesia* Anesthesia Assessment Anesthesia Assessment: Discussed sedation and/or anesthesia options, risks, benefits, and alternatives with patient/parents/legal guardian/POA. Questions invited. The patient/parents/legal guardian/POA seems to understand and agrees to proceed with anesthesia plan. Reviewed the physical assessment, medical history, allergy history and patient home medications list prior to surgery/procedure/anesthetic and documented any changes. Performed airway and anesthesia risk assessments. Anesthesia Type Anesthesia Type: MAC Anesthesia Focused Assessment* Airway Assessment Mouth opens: >3 cm Mallampati Score: II Focused Labs Anesthesia Preop lab: CBC WBC 6.6 K/mm3 (4.4-11.0) 04/05/24 05:18 04/05/24 RBC 4.27 M/mm3 (4.2-5.4) 04/05/24 05:18 04/05/24 Hgb 12.3 g/dL (12.0-15.0) 04/05/24 05:18 04/05/24 Hct 39.1 % (37-47) 04/05/24 05:18 04/05/24 Plt Count 307 K/mm3 (150-450) 04/05/24 05:18 04/05/24 CHEMISTRY Potassium 3.4 mmol/L (3.3-5.1) 08/15/24 09:59 08/15/24 Sodium 137 mmol/L (133-145) 08/15/24 09:59 08/15/24 Magnesium 2.3 mg/dL (1.6-2.6) 03/08/24 05:15 03/08/24 Phosphorus 4.1 mg/dL (2.5-4.9) 03/08/24 05:15 03/08/24 BUN 34 mg/dL (4-19) H 08/15/24 09:59 08/15/24 Creatinine 1.16 mg/dL (0.70-1.20) 08/15/24 09:59 08/15/24 Glucose 148 mg/dL (70-99) H 08/15/24 09:59 08/15/24 POC Glucose 125 mg/dL (74-106) H 04/08/24 06:26 04/08/24 TSH 5.590 uIU/mL (0.358-3.740) H 03/08/24 05:15 COAG PT 15.6 SECONDS (11.7-14.9) H 04/08/24 10:45 1212/23 Pre-Assessment Diagnosis/Proposed Procedure Planned Operative Procedure(s): EGD Anesthesia History Anesthesia History - director of operations for therapy: Anesthesia History - director of operations for therapy Hx Hospitalization Yes: [facility] 01-2308/17/24 10:51 Any Problems With Anesthesia No 08/17/24 10:51 Cholinesterase deficiency No 08/17/24 10:51 You/Your Family Experience No 08/17/24 10:51 fever (hyperthermia) with Relationship Recent Exposure to Contagious No 04/04/24 08:05 Disease Does patient have nerve No 08/17/24 10:51 stimulator Patient instructed to have device shut off --Does patient have Pacemaker or ICD? When Was Last Pacemaker Check QUESTION #4 FULL TEXT: You/Your Family Experience fever (hyperthermia) with Anesthesia Last Oral Intake Last Oral intake: Last Oral Intake NPO since Meds taken in AM with sips of water? Meds patient instructed to take am of surgery PONV PONV - director of operations for therapy: PONV - director of operations for therapy Female Yes 08/17/24 10:51 HX of Motion Sickness No 08/17/24 10:51 HX of N/V After Surgery No 08/17/24 10:51 Non-Smoker Yes 08/17/24 10:51 Duration of Surgery greater No 08/17/24 10:51 than 60 minutes Number of Risk Factors 2 08/17/24 10:51 PONV Score Moderate Risk 08/17/24 10:51 Height & Weight Height & Weight: Anesthesia: Height & Weight Height 5 ft 3 in 06/20/24 09:55 Respiratory Assessment Respiratory Assessment - director of operations for therapy: Respiratory Tract Infection Hx - director of operations for therapy Hx Respiratory Tract Infection No 08/17/24 10:51 STOP Sleep Apnea STOP Sleep Apnea - director of operations for therapy: STOP Sleep Apnea - director of operations for therapy Hx Hypertension Yes 08/17/24 10:51 Hx Sleep Apnea No 08/17/24 10:51 CPAP No 03/12/24 18:43 BIPAP No 01/27/24 14:35 Do you snore loudly (louder Yes 08/17/24 10:51 than talking or can be heard Do you often feel tired/ No 08/17/24 10:51 fatigued/ sleepy during daytime? Has anyone observed you stop Yes 08/17/24 10:51 breathing during sleep? STOP Results Positive 08/17/24 10:51 QUESTION #5 FULL TEXT : Do you snore loudly (louder than talking or can be heard through closed doors)? 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 Specify any problems Hx of Preganancy in last 3 No 08/17/24 10:51 Months Nurse Filling Out Transfusion JZOLLINGE 08/17/24 10:51 & Questions: Date: 08/17/24 08/17/24 10:51 Time: 10:54 08/17/24 10:51 Patient unable to answer at this time (ie. confused, unrespo /Reproduction History /Reproductive History - director of operations for therapy: /Reproductive Hx- director of operations for therapy Hx Now No 08/17/24 10:51 Gestational Age (in weeks): EDC: Hx Hx Para Hx Section SAB No 08/17/24 10:51 PFSH Medical History Wears glasses Depression Heartburn Non-smoker On home oxygen therapy Hypertension Gastric ulcer Dilated cardiomyopathy Prolonged QT interval Elevated blood pressure reading without diagnosis of hypertension Factor V Leiden Anxiety Hypokalemia Acute hypoxemic respiratory failure CHF (congestive heart failure) Home Medications ?Medication ?Instructions ?Recorded ?Last Taken ?Type oxybutynin chloride 10 mg 10 mg PO DAILY bladder 09/2201/27/24 History tablet,extended release 24 hr glimepiride 2 mg tablet 2 mg PO DAILY dm 12/31/23 Un known History ferrous sulfate 325 mg (65 mg 325 mg PO DAILY@1200 sup plement 30 02/03/24 Unknown Rx iron) tablet (FeroSul) days #30 tabs sertraline 25 mg tablet 25 mg PO DAILY mood 03/07/24 Unknown History warfarin 2 mg tablet 2 mg PO .MWF afib 03/07/24 U nknown History furosemide 40 mg tablet 40 mg PO DAILY water pill 30 days 03/19/24 01/27/24 Rx #60 tabs clopidogrel 75 mg tablet 75 mg PO DAILY 30 days #30 t abs 04/05/24 Unknown Rx pantoprazole 40 mg tablet,delayed 40 mg PO BID 30 days #60 tabs 04/05/24 Unknown Rx release tizanidine 2 mg tablet 4 mg (2 x 2 mg) PO Q8 PRN Mu scle 04/05/24 Unknown Rx Spasm 30 days #180 tabs simvastatin 80 mg tablet 80 mg PO QDAY 06/20/24 Unkno wn History gabapentin 100 mg capsule 100 mg PO BID #0 caps Unknown Rx metoprolol succinate 50 mg 50 mg PO BID #1 TAB 5 Unknown Rx tablet,extended release 24 hr Cinnamon 2 tab PO BID 08/17/24 Unknow n History magnesium chloride 64 mg 128 mg PO DAILY 08/17/24 Unk nown History (magnesium chloride) tablet,delayed release (Mag 64) warfarin 3 mg tablet 3 mg PO SUTUTHSA 08/17/24 Un known History amlodipine 5 mg tablet 5 mg PO QDAY #30 tabs Unknown Rx losartan 100 mg tablet 100 mg PO QDAY #90 tabs 08/01 05/26 Unknown Rx potassium chloride 20 mEq 20 meq PO QDAY 08/20/24 Unkn own History tablet,extended release Allergy/AdvReac Type Severity Reaction Status Date / Time benazepril (From Lotensin) Allergy Mild DOESNT Verified 08/17/24 10:19 REMEMBER quinapril (From Accupril) Allergy Mild UNKNOWN Verified 08/17/24 10:19 Sulfa (Sulfonamide Allergy Mild Hives Verified 08/17/24 10:19 Antibiotics) verapamil (From Calan) Allergy Mild UNKNOWN Verified 08/17/24 10:19 Family History Other Asthma COPD (chronic obstructive pulmonary disease) CVA (cerebral vascular accident) Diabetes Heart disease Hypertension Myocardial infarction Surgical History Hx of amputation History of transmetatarsal amputation of right foot History of femoropopliteal bypass S/P carotid endarterectomy Social History household members: spouse Smoking Status: Never smoker alcohol intake: never substance use type: does not use Review of Systems (Anesthesia) ROS Narrative System reviewed and no additional complaints, except as documented.
[2024-08-22 11:58] LABS: International Normalized Ratio 1.2; Prothrombin Time (Protime)PT. 15.5 SECONDS (11.7-14.9)
[2024-08-22] MEDS: Lactated Ringers 1,000 ML 15 ML IV (12:20)
--- NOTE | 2024-08-22 12:30 | EGD_PTH ---
PATIENT: JAROD PRITCHARD LOC: EN U#:[id number] AGE/SX: 83/F ROOM: RE08/22/[address]: Dr. Robb Giron DO : 1940 BED: DIS: 08/22/2024 SPEC #: [id number] RECD: 08/23/24 08:52 STATUS: ROBY REQ #: [id number] DIANA: 08/22/24 12:[address]: Robb Giron DEPT: SURGICAL PATHOLOGY RECD BY: Job Stone ENTERED: 08/23/24 08:52 SP TYPE: EGD BIOPSY LUCY DR: Dr. Kendra Lucio MD Tissues: A - Gastric mucous membrane Procedures: Surgery Specimen Level IV HEADER OPERATION: EGD PRE-OP DIAGNOSIS: GERD, gastric ulcer TISSUE SUBMITTED: A- Gastric body biopsy MICROSCOPIC DIAGNOSIS A. Stomach, body, biopsy: * Oxyntic mucosa with no specific pathologic change. * Negative for Helicobacter-like organisms (H&E). MICROSCOPIC DESCRIPTION Slides are reviewed. GROSS DESCRIPTION A. Received in formalin in a container labeled with the patient's name, date of , and gastric body biopsy are multiple mireles-pink fragments of mucosal tissue measuring 0.9 x 0.7 x 0.3 cm in aggregate. Submitted in toto in A1. SMB 08/22/2024 CPT:61181
--- NOTE | 2024-08-22 12:44 | HP.PCM_ITS ---
HPI - General General Date of Admission: 08/22/24 Date of Service: 08/22/24 Chief Complaint: gastric ulcer HPI Narrative JAROD PRITCHARD, is a 83 F who presents for surveillance of gastric ulcer. PMHx of diabetes, HTN, factor V Leiden on Coumadin, dilated cardiomyopathy, carotid stenosis s/p endarterectomy. 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 TCU 03.19.24-04.05.24 following amputation. GI consulted due to iron def anemia. Underwent EGD showing oozing gastric ulcer with clip placement and non bleeding duodenal ulcer. EGD 04.04.24; Normal esophagus. - Oozing gastric ulcer with a visible vessel. Clip was placed. 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 - Non-bleeding duodenal ulcers with no stigmata of bleeding. Biopsied. OV 06.19.24 Has had diarrhea since coming home form the hospital. Diarrhea is daily up 5 times per day. Her stool is liquid with some softer parts. She is not having any formed stools in between. She is having nocturnal diarrhea that wakes her up. She has a hx of c.dif in May 2015. Pepto and anti diarrheals have helped. She is having colon pain. Has been eating differently with higher fiber foods. She denies any heartburn, n/v, constipation, no blood in her stool. Last colonoscopy was at least 2 years ago. [facility] Medical History Wears glasses Depression Heartburn Non-smoker On home oxygen therapy Hypertension Gastric ulcer Dilated cardiomyopathy Prolonged QT interval Elevated blood pressure reading without diagnosis of hypertension Factor V Leiden Anxiety Hypokalemia Acute hypoxemic respiratory failure CHF (congestive heart failure) Home Medications ?Medication ?Instructions ?Recorded ?Last Taken ?Type oxybutynin chloride 10 mg 10 mg PO DAILY bladder 09/2208/22/24 History tablet,extended release 24 hr glimepiride 2 mg tablet 2 mg PO DAILY dm 12/31/23 Un known History ferrous sulfate 325 mg (65 mg 325 mg PO DAILY@1200 sup plement 30 02/03/24 Unknown Rx iron) tablet (FeroSul) days #30 tabs sertraline 25 mg tablet 25 mg PO DAILY mood 03/07/24 08/22/24 History warfarin 2 mg tablet 2 mg PO .MWF afib 03/07/24 U nknown History furosemide 40 mg tablet 40 mg PO DAILY water pill 30 days 03/19/24 01/27/24 Rx #60 tabs clopidogrel 75 mg tablet 75 mg PO DAILY 30 days #30 t abs 04/05/24 Unknown Rx pantoprazole 40 mg tablet,delayed 40 mg PO BID 30 days #60 tabs 04/05/24 Unknown Rx release tizanidine 2 mg tablet 4 mg (2 x 2 mg) PO Q8 PRN Mu scle 04/05/24 Unknown Rx Spasm 30 days #180 tabs simvastatin 80 mg tablet 80 mg PO QDAY 06/20/24 Unkno wn History gabapentin 100 mg capsule 100 mg PO BID #0 caps Unknown Rx metoprolol succinate 50 mg 50 mg PO BID #1 TAB 5 08/22/24 Rx tablet,extended release 24 hr Cinnamon 2 tab PO BID 08/17/24 Unknow n History magnesium chloride 64 mg 128 mg PO DAILY 08/17/24 Unk nown History (magnesium chloride) tablet,delayed release (Mag 64) warfarin 3 mg tablet 3 mg PO SUTUTHSA 08/17/24 Un known History amlodipine 5 mg tablet 5 mg PO QDAY #30 tabs Unknown Rx losartan 100 mg tablet 100 mg PO QDAY #90 tabs 08/01 05/26 Unknown Rx potassium chloride 20 mEq 20 meq PO QDAY 08/20/24 Unkn own History tablet,extended release Allergy/AdvReac Type Severity Reaction Status Date / Time benazepril (From Lotensin) Allergy Mild DOESNT Verified 08/22/24 12:08 REMEMBER quinapril (From Accupril) Allergy Mild UNKNOWN Verified 08/22/24 12:08 Sulfa (Sulfonamide Allergy Mild Hives Verified 08/22/24 12:08 Antibiotics) verapamil (From Calan) Allergy Mild UNKNOWN Verified 08/22/24 12:08 Family History Other Asthma COPD (chronic obstructive pulmonary disease) CVA (cerebral vascular accident) Diabetes Heart disease Hypertension Myocardial infarction Surgical History Hx of amputation History of transmetatarsal amputation of right foot History of femoropopliteal bypass S/P carotid endarterectomy Social History household members: spouse Smoking Status: Never smoker alcohol intake: never substance use type: does not use ROS Constitutional Constitutional: Reports weakness; Denies chills, fever(s) or weight gain ENT HEENT: Denies headache(s), nasal congestion or nasal discharge Cardiovascular Cardiovascular: Denies chest pain or palpitations Respiratory/Chest Respiratory/Chest: Denies cough, excessive phlegm production or shortness of breath with exertion Gastrointestinal Gastrointestinal: Denies abdominal pain, nausea or vomiting Genitourinary Genitourinary: Denies dysuria Musculoskeletal Musculoskeletal: Denies joint pain or joint swelling Integumentary Integumentary: Denies rash or wounds Neurologic Neurologic: Denies focal weakness, numbness or tingling Psychiatric Psychiatric: Denies anxiety, auditory hallucinations, depression, homicidal ideation or suicidal ideation Vital Signs Vital Signs Vital Signs: 08/22/24 12:11 08/22/24 12:11 Temperature 97.0 F L Temperature Source Temporal Pulse Rate 59 L Respiratory Rate 16 Respiratory Pattern Normal Blood Pressure 167/62 H Blood Pressure Mean 97 Blood Pressure Source Monitor Blood Pressure Position Sitting Blood Pressure Location Right Arm Pulse Ox 98 Oxygen Delivery Method Room Air Weight Weight: 147 lb 14.883 oz Body Mass Index (BMI) 26.2 Physical Exam Const alert General Appearance: cooperative Orientation / Consciousness: oriented to person HEENT hearing grossly normal bilaterally Head and Scalp: normal to inspection Face and Sinus: face symmetric Nose: external nose normal Mouth: oral and palatal mucosa normal Eyes conjunctivae normal General Eye: normal appearance of both eyes Neck full ROM General: normal visual inspection Lymph Lymphatic: no lymphadenopathy noted Chest inspection of chest normal and palpation of chest normal Chest: symmetrical chest wall rise Resp normal respiratory effort Effort and Inspection: able to speak in complete sentences Cardio regular rate GI non-distended Percussion: normal to percussion Rectal Exam: deferred Neuro Speech: speech normal Gait (Neuro): normal gait Results Lab / Micro Data Labs: Laboratory Results - last 24 hr 08/22/24 11:36: POC PT 16.1 H, INR 1.4 08/22/24 11:40: PT 15.5 H, INR 1.2 Assessment & Plan Assessment/Plan (1) Gastric ulcer: PLAN: Assessment and Plan Assessment and Plan (1) GERD (gastroesophageal reflux disease): Status: Acute (2) Gastric ulcer: Status: Acute Plan: This is an 83 yo female pt here today for f/birch after hospitalization for toe amputation. Pt was found to have a gastric ulcer after undergoing EGD for down trending hemoglobin. She will undergo repeat EGD to assess for healing of the gastric ulcer. Since the hospitalization she has had issues with diarrhea up to 5x per day. SHe does have a hx of c dif in 2016. I will order stool testing for enteric pathogens, c dif, or inflammation. We will consider treatment pending these results. -Stool testing -EGD -Consider treatment for diarrhea (3) Diarrhea: Status: Acute Orders: Orders ENTERIC PATHOGEN PANEL STOOL Today K25.9 - Gastric ulcer, unspecified as acute or chronic, without hemorrhage or perforation, K58.9 - Irritable bowel syndrome, unspecified, R19.7 - Diarrhea, unspecified Giardia Lamblia, Stool EIA Today K25.9 - Gastric ulcer, unspecified as acute or chronic, without hemorrhage or perforation, R19.7 - Diarrhea, unspecified Ova and Parasites 8623 Today K25.9 - Gastric ulcer, unspecified as acute or chronic, without hemorrhage or perforation, K58.9 - Irritable bowel syndrome, unspecified, R19.7 - Diarrhea, unspecified CDIFF (PCR) Today K25.9 - Gastric ulcer, unspecified as acute or chronic, without hemorrhage or perforation, R19.7 - Diarrhea, unspecified Calprotectin, Stool Today K25.9 - Gastric ulcer, unspecified as acute or chronic, without hemorrhage or perforation, R19.7 - Diarrhea, unspecified
--- NOTE | 2024-08-22 13:08 | OP.CCLET_ITS ---
08/22/2024 Kendra Lucio [address] [place] [address] Re : Upper GI endoscopy procedure for Eri Kade Dear Dr. Lucio This procedure was performed on Thursday, August 22, 2024. My impressions and recommendations are as follows: Impressions : - Normal esophagus. - Erythematous mucosa in the gastric body. Biopsied. - No gross lesions in the second portion of the duodenum. Recommendations : - Discharge patient to home. - Resume previous diet. - Continue present medications. - Await pathology results. My findings are described in the full procedure note, which is enclosed. If I can be of further assistance, please feel free to contact me at . Sincerely, Robb Giron, 08/22/2024 1:07:59 PM This report has been signed electronically.
--- NOTE | 2024-08-22 13:08 | OP.EGD_ITS ---
Patient Name: Eri Braun Procedure Date: 08/22/2024 12:49 PM Date of : 1940 Age: 83 Procedure: Upper GI endoscopy Indications: Peptic ulcer Providers: Robb Giron DO Referring MD: Kendra Lucio Medicines: Monitored Anesthesia Care Patient Profile: This is an 83 year old female. Refer to note in patient chart for documentation of history and physical. Patient has symptoms. Complications: No immediate complications. Procedure: Pre-Anesthesia Assessment: - Prior to the procedure, a History and Physical was performed, and patient medications and allergies were reviewed. The patient is competent. The risks and benefits of the procedure and the sedation options and risks were discussed with the patient. All questions were answered and informed consent was obtained. Patient identification and proposed procedure were verified by the physician in the pre-procedure area. Mental Status Examination: alert and oriented. Airway Examination: normal oropharyngeal airway and neck mobility. Respiratory Examination: clear to auscultation. CV Examination: normal. Prophylactic Antibiotics: The patient does not require prophylactic antibiotics. Prior Anticoagulants: The patient has taken no anticoagulant or antiplatelet agents except for NSAID medication. ASA Grade Assessment: II - A patient with mild systemic disease. After reviewing the risks and benefits, the patient was deemed in satisfactory condition to undergo the procedure. The anesthesia plan was to use monitored anesthesia care (MAC). Immediately prior to administration of medications, the patient was re-assessed for adequacy to receive sedatives. The heart rate, respiratory rate, oxygen saturations, blood pressure, adequacy of pulmonary ventilation, and response to care were monitored throughout the procedure. The physical status of the patient was re-assessed after the procedure. After obtaining informed consent, the endoscope was passed under direct vision. Throughout the procedure, the patient's blood pressure, pulse, and oxygen saturations were monitored continuously. The gastroscope was introduced through the mouth, and advanced to the second part of duodenum. The upper GI endoscopy was accomplished without difficulty. The patient tolerated the procedure well. Scope In: 1:01:06 PM Scope Out: 1:04:45 PM Total Procedure Duration Time 0 hours 3 minutes 39 seconds Findings: The examined esophagus was normal. Patchy mildly erythematous mucosa without bleeding was found in the gastric body. Biopsies were taken with a cold forceps for histology. Verification of patient identification for the specimen was done. Estimated blood loss was minimal. Biopsies were taken with a cold forceps for Helicobacter pylori testing. Verification of patient identification for the specimen was done. Estimated blood loss was minimal. No gross lesions were noted in the second portion of the duodenum. Impression: - Normal esophagus. - Erythematous mucosa in the gastric body. Biopsied. - No gross lesions in the second portion of the duodenum. Recommendation: - Discharge patient to home. - Resume previous diet. - Continue present medications. - Await pathology results. Procedure Code(s): --- Professional --- 93019, Esophagogastroduodenoscopy, flexible, transoral; with biopsy, single or multiple CPT copyright 2021 [employer]. All rights reserved. The codes documented in this report are preliminary and upon event sales representative review may be revised to meet current compliance requirements. Robb Giron DO 08/22/2024 1:07:59 PM This report has been signed electronically. Number of Addenda: 0 Note Initiated On: 08/22/2024 12:49 PM
--- NOTE | 2024-08-22 13:13 | PCM.POST.ANE ---
Anesthesia: Postop Eval I Current Vital Signs Temperature: 97.1 F Pulse Rate: 51 Blood Pressure: 126/49 Respiratory Rate: 14 Pulse Ox: 97 Oxygen Delivery Method: Room Air Assessment Airway patent: Yes Spontaneous unlabored respirations: Yes Mental status: Awake and Calm nausea: No Vomiting: No Anesthesia Complication: No Fluid Hydration Crystalloid volume administer (ml): 300 Total IV fluid infused: 300 Progress Note Anesthesia document: Postop Eval 1 completed: Yes
--- NOTE | 2024-08-22 13:39 | PCM.POSTANE2 ---
Anesthesia Postop Eval I Sum Postop Eval Completion status Anesthesia document: Postop Eval 1 completed: Yes Anesthesia Postop Eval I Summary Anesthesia Postop Eval I Summary: Anesthesia Postop Eval I: Assessment Summary Airway patent Yes 08/22/24 13:14 [email or web address] Spontaneous unlabored Yes 08/22/24 13:14 [email or web address] respirations Mental status Awake,Calm 08/22/24 13:14 [email or web address] nausea No 08/22/24 13:14 [email or web address] Vomiting No 08/22/24 13:14 [email or web address] Anesthesia Postop Eval I: Fluid Summary Crystalloid volume administer 300 08/22/24 13:14 [email or web address] (ml) Colloids volume administered ( ml) Blood Product volume administered (ml) Total IV fluid infused 300 08/22/24 13:14 [email or web address] Anesthesia Postop Eval I: Summary Notes Anesthesia Complication No 08/22/24 13:14 [email or web address] Anesthesia Complication Comment: Post-operative progress note Anesthesia: Postop Eval II Evaluation Mental status: Awake Pain Level: 0 nausea: No Vomiting: No
== END 2024-08-22 13:53 | disposition home or self-care (01) ==
LOC: EN 11:33 → AC 11:33
PROVIDERS: PCP Internal Medicine; Referring Provider Internal Medicine; Visit Provider Internal Medicine Gastroenterology
PROC: 0DJ08ZZ Inspection of Upper Intestinal Tract, Via Natural or Artificial Opening Endoscopic (ICD-10-PCS; CPT 43235; principal; 2024-08-22 12:25)
DX: K25.9 Gastric ulcer, unspecified as acute or chronic, without hemorrhage or perforation (principal); Z89.431 Acquired absence of right foot; D68.2 Hereditary deficiency of other clotting factors; I11.0 Hypertensive heart disease with heart failure; I50.9 Heart failure, unspecified; I42.0 Dilated cardiomyopathy; E11.9 Type 2 diabetes mellitus without complications; K58.0 Irritable bowel syndrome with diarrhea; K21.9 Gastro-esophageal reflux disease without esophagitis; Z79.84 Long term (current) use of oral hypoglycemic drugs; Z79.01 Long term (current) use of anticoagulants; Z79.02 Long term (current) use of antithrombotics/antiplatelets; Z79.899 Other long term (current) drug therapy
CPT/HCPCS: 43239; 36415; 36416; 85610; 88305; J2405

== ENCOUNTER → 2024-08-28 | Outpatient (CLI) | payer MEDICARE, SELFPAY ==
--- NOTE | 2024-08-28 09:01 | ART_ITS ---
Reason For Study Reason For Study: Post op / PVD Procedure A bilateral lower extremity continuous wave Doppler with analog waveform analysis,segmental pressures,and ankle brachial indexes without exercise. Left Segmental Pressures Left brachial= 169mmHg. Left posterior tibial artery = 98mmHg. Left dorsalis pedis artery = 94mmHg. Left digit = 62 mmHg. The left posterior tibial artery waveforms are monophasic. The left dorsalis pedis waveforms are monophasic. Right Segmental Pressures Right brachial= 162mmHg. Right posterior tibial artery = 186mmHg. Right dorsalis pedis artery = 121mmHg. The right posterior tibial artery waveforms are monophasic. The right dorsalis pedis waveforms are monophasic. Indices The right ankle brachial index by the posterior tibial artery is 1.10. The right ankle brachial index by the dorsalis pedis is 0.72. Rt Toe amputation. The left ankle brachial index by the posterior tibial artery is 0.58. The left ankle brachial index by the dorsalis pedis is 0.56. The left digital-brachial index is 0.37. VL/Ankle Brachial Index Interpretation Summary Right AYAN 1.1, normal. Doppler/PVR waveforms of the right ankle mildly diminish ed at rest. Left AYAN 0.58, moderate arterial insufficiency. Doppler/PVR waveforms of the le ft ankle moderately diminished at rest. Ordering Physician: Laura Crowell Referring Physician: Knedra Lucio M.D. Performed By: Parker Kennedy RVT
--- NOTE | 2024-08-28 09:01 | ADUL_ITS ---
Reason For Study Reason For Study: S/P Rt SFA - POP A BPG / Dist BPG Jump Graft to Distal RN DISCHARGE Right Velocities Ext. Iliac Artery dist = 147.5 cm./sec. Common Femoral Artery mid = 181.2 cm./sec. Profunda Femoral Artery = 77.5 cm./sec. SFA, origin - 111.2 cm/sec. SFA prox/mid - 165.6 cm/sec. Fem-Pop Bypass Graft noted Prox Anastamosis - 160.4 cm/s Prox Graft - 72.0 cm/s Mid Graft - 63.7 cm/s Dist Graft - 54.6 cm/s Dist Anastamosis - 65.6 cm/s Dist to Graft - POP A - 174.7 cm/s. POP A Distal - 72.9 cm/s Jump Graft at knee noted BPG 2 Prox Anastomosis - 120.4 cm/s BPG 2 Prox Graft - 96.6 cm/s BPG 2 Mid Graft - 51.0 cm/s BPG 2 Dist Graft - 42.4 cm/s BPG 2 Dist anatomosis (at ankle) - 403.4 cm/s Post. Tibial Artery, dist to anastomosis = 83.8 cm./sec. No flow noted in prox RN DISCHARGE - Retrograde flow noted at mid/dist RN DISCHARGE pre anastomosis. Peroneal Artery, prox = 47.2 cm./sec. Peroneal Artery, mid = 37.7 cm./sec. Peroneal Artery,dist = 83.8 cm./sec. Ant. Tibial Artery, prox = 171.0 cm./sec. Ant. Tibial Artery, mid = 112.8 cm./sec. Ant. Tibial Artery, dist = 52.7 cm./sec. Procedure The exam was diagnostic. RLE Arterial duplex with B-Mode, color and pulsed wave doppler. Exam performed in department. VL/US Art Duplex Unilat Lower Ext Interpretation Summary Patent SFA-below knee popliteal bypass with normal velocities and no evidence o f stenosis. Jump graft to distal popliteal with improved velocities throughout, continued e levated velocities at distal anastomosis. Waveforms transition from biphasic to monophasic through proximal SFA without f ocal stenosis identified. Ordering Physician: Laura Crowell Referring Physician: Kendra Lucio Performed By: Parker Kennedy RVT
[2024-08-28 10:43] LABS: Anion Gap 14 (5-15); BUN 26 mg/dL (4-19); BUN/Creat Ratio 22.4 RATIO (10-20); Calcium,Total 9.8 mg/dL (7.6-11.0); Carbon Dioxide 21.9 mmol/L (21.0-32.0); Chloride 102 mmol/L (98-108); Creatinine, Serum 1.17 mg/dL (0.70-1.20); EST Glomerular Filtration Rate 46 (>60); Glucose 140 mg/dL (70-99); Potassium 3.9 mmol/L (3.3-5.1); Sodium Level 137 mmol/L (133-145)
== END | disposition home or self-care (01) ==
PROVIDERS: Nurse Practitioner Family; PCP Internal Medicine; Referring Provider Physician Assistant; Visit Provider Physician Assistant
DX: Z48.812 Encounter for surgical aftercare following surgery on the circulatory system (principal); E87.6 Hypokalemia; I73.9 Peripheral vascular disease, unspecified; Z95.820 Peripheral vascular angioplasty status with implants and grafts
CPT/HCPCS: 36415; 80048; 93922; 93926

== ENCOUNTER 2024-09-06 08:49 | Outpatient (RCR) | payer SELFPAY | END 2024-09-29 23:59 | LOC: NS 08:49 | PROVIDERS: PCP Internal Medicine | DX: Z71.3 Dietary counseling and surveillance (principal) ==

== ENCOUNTER → 2024-10-01 | Outpatient (CLI) | payer MEDICARE, SELFPAY ==
--- NOTE | 2024-10-01 16:36 | CT_ITS ---
PROCEDURE: CTA HEAD AND NECK W/ CONTRAST 10/01/2024 REASON FOR EXAM: SEVERE >70% L ICA STENOSIS TECHNIQUE: CTA imaging of the head and neck from the aortic arch to the skull vertex with out contrast and with intravenous contrast. Multiplanar and multisequence images were obtained. CONTRAST: Isovue 370 VOLUME: 100 mL. One or more dose reduction techniques were used (e.g., Automated exposure control, adjustment of the mA and/or kV according to patient size, use of iterative reconstruction technique). RADIATION DOSE SUMMARY: DLP: 1321.55 mGycm COMPARISON: None. FINDINGS: Atherosclerosis of the aortic arch without significant stenosis. Atherosclerosis of the bilateral subclavian arteries without significant stenosis. Scattered atherosclerosis of the common carotid arteries without significant stenosis. Atherosclerosis of the proximal right internal carotid artery with approximately 90% stenosis. Atherosclerosis of the left proximal internal carotid artery with approximately 75% stenosis. Atherosclerosis of the origins of the bilateral vertebral arteries without significant stenosis. Atherosclerosis of the carotid siphons. The [id number] is patent. The anterior cerebral, anterior communicating, middle cerebral, and posterior cerebral arteries are patent. The intracranial vertebrobasilar system is patent with mild acetabular sclerosis of the intracranial vertebral arteries without significant stenosis. The lung apices are clear. CT/CTA Head AND Neck W/ Contrast IMPRESSION: Approximately 90% stenosis of the right internal carotid artery. Approximately 75% stenosis of the left internal carotid artery. Additional scattered atherosclerosis without hemodynamically significant stenos is. Reading Location: [place] [id number]
[2024-10-01 17:00] LABS: CREATININE FINGERSTICK 1.2 mg/dL (0.55-1.02)
== END | disposition home or self-care (01) ==
LOC: CT 16:29
PROVIDERS: PCP Internal Medicine; Referring Provider Physician Assistant; Visit Provider Physician Assistant
DX: Z01.812 Encounter for preprocedural laboratory examination (principal); I77.9 Disorder of arteries and arterioles, unspecified
CPT/HCPCS: 70496; 70498; Q9967; A4216

== ENCOUNTER → 2024-10-02 | Outpatient (CLI) | payer MEDICARE, SELFPAY ==
--- NOTE | 2024-10-02 12:54 | VDLE_ITS ---
Reason For Study Reason For Study: PAIN/SWELLING RIGHT LEFT GSV is normal. GSV is normal. CFV is compressible, spontaneous, phasic, competent CFV is compressible, spontaneous, phasic, competent, and demonstrates normal augmentation. and demonstrates normal augmentation. FV is compressible, spontaneous, phasic, competent and FV is compressible, spontaneous, phasic, competent demonstrates normal augmentation. and demonstrates normal augmentation. POP V is compressible, spontaneous, phasic, competent POP V is compressible, spontaneous, phasic, and demonstrates normal augmentation. competent and demonstrates normal augmentation. T/P Trunk is compressible. T/P Trunk is compressible. PTV is compressible. PTV is compressible. RT PerV is compressible. LT PerV is compressible. Procedure This is a venous duplex using B-mode, color flow and spectral Doppler. Exam performed in department. The study was technically difficult. PT had difficulty tolerating probe pressure/compressions. A preliminary report was called and/or faxed to Dr. Blanca @ 13:30. VL/Venous Duplex US - Kwadwo Extrem Interpretation Summary Deep veins of the lower extremities are bilaterally patent and compressible seg mentally. There is no evidence of deep vein thrombosis on either side. Valvular competence appears intact within the p roximal deep venous systems bilaterally. The great saphenous veins appear bilaterally patent and compressible segmentall y. Ordering Physician: Eugene Blanca Referring Physician: Kendra Lucio Performed By: Stephy Duenas, RDCS, RVT
== END | disposition home or self-care (01) ==
LOC: CVS 12:51
PROVIDERS: PCP Internal Medicine; Referring Provider Podiatrist; Visit Provider Podiatrist
DX: M79.661 Pain in right lower leg (principal); M79.662 Pain in left lower leg; M79.89 Other specified soft tissue disorders
CPT/HCPCS: 93970

== ENCOUNTER 2024-10-07 21:20 | Inpatient (IN) | payer MEDICARE, SELFPAY ==
[2024-10-07] VITALS (8 sets, daily range): BP systolic 106–119; BP diastolic 42–64; PULSE 56–72; RESP 13–24; TEMP 36.6–36.9; O2SAT 90–100; BMI 27.5
--- NOTE | 2024-10-07 22:04 | EKG12_ITS ---
Test Reason : SOB Blood Pressure : */* mmHG Vent. Rate : 67 BPM Atrial Rate : * BPM P-R Int : * ms QRS Dur : 88 ms QT Int : 446 ms P-R-T Axes : * -42 108 degrees QTcB Int : 471 ms Normal sinus rhythm Left axis deviation Cannot rule out Anterior infarct (cited on or before 23-Sep-2023) ST & T wave abnormality, consider lateral ischemia Abnormal ECG Confirmed by Roly Herrera ([id number]), editor managing newspaper [place] ADAMES ([id number]) on 10/09/2024 6:16:14 AM Referred By: Confirmed By: Roly Herrera
--- NOTE | 2024-10-07 22:05 | EDS_ITS ---
HPI History of Present Illness Chief Complaint: Shortness of Breath Informant: patient and spouse/S.O. Narrative Narrative: 83-year-old female has had substernal nonpleuritic heaviness and dyspnea for the past day or 2. Worse when she lies down. Mild nonproductive cough. No fevers or chills. Has history of congestive heart failure, she had had worsening swelling in her leg for the past week or so but yesterday she states she fasted and then additionally took some extra Lasix, and the swelling went back down. 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 She also had carotid disease, she is following with Dr. Rojas here and they are monitoring. She usually wears oxygen 2 L every night, but yesterday and today she has been wearing it during the day because of her dyspnea and has been helping some. Has been in atrial fibrillation before, does not feel like she is in it now. Patient also states has a history of a gastric ulcer that was cauterized by Dr. Giron. She is concerned that maybe she has more bleeding because she states that she was eating a lot of cinnamon and her stools looked cinnamon colored. 1-2 weeks ago she stopped eating cinnamon and her stools are still cinnamon colored, and they are darker as well but she takes iron. [facility] Medical History TIA (transient ischemic attack) Wears glasses Depression Heartburn Non-smoker On home oxygen therapy Hypertension Gastric ulcer Dilated cardiomyopathy Prolonged QT interval Elevated blood pressure reading without diagnosis of hypertension Factor V Leiden Anxiety Hypokalemia Acute hypoxemic respiratory failure CHF (congestive heart failure) Home Medications ?Medication ?Instructions ?Recorded ?Last Taken ?Type oxybutynin chloride 10 mg 10 mg PO DAILY bladder 09/2208/22/24 History tablet,extended release 24 hr glimepiride 2 mg tablet 2 mg PO DAILY dm 12/31/23 Un known History ferrous sulfate 325 mg (65 mg 325 mg PO DAILY@1200 sup plement 30 02/03/24 Unknown Rx iron) tablet (FeroSul) days #30 tabs sertraline 25 mg tablet 25 mg PO DAILY mood 03/07/24 08/22/24 History warfarin 2 mg tablet 2 mg PO .MWF afib 03/07/24 U nknown History furosemide 40 mg tablet 40 mg PO DAILY water pill 30 days 03/19/24 01/27/24 Rx #60 tabs clopidogrel 75 mg tablet 75 mg PO DAILY 30 days #30 t abs 04/05/24 Unknown Rx pantoprazole 40 mg tablet,delayed 40 mg PO BID 30 days #60 tabs 04/05/24 Unknown Rx release tizanidine 2 mg tablet 4 mg (2 x 2 mg) PO Q8 PRN Mu scle 04/05/24 Unknown Rx Spasm 30 days #180 tabs simvastatin 80 mg tablet 80 mg PO QDAY 06/20/24 Unkno wn History gabapentin 100 mg capsule 100 mg PO BID #0 caps Unknown Rx metoprolol succinate 50 mg 50 mg PO BID #1 TAB 5 08/22/24 Rx tablet,extended release 24 hr Cinnamon 2 tab PO BID 08/17/24 Unknow n History magnesium chloride 64 mg 128 mg PO DAILY 08/17/24 Unk nown History (magnesium chloride) tablet,delayed release (Mag 64) warfarin 3 mg tablet 3 mg PO SUTUTHSA 08/17/24 Un known History losartan 100 mg tablet 100 mg PO QDAY #90 tabs 08/01 05/26 Unknown Rx potassium chloride 20 mEq 20 meq PO QDAY 08/20/24 Unkn own History tablet,extended release amlodipine 10 mg tablet 10 mg PO .COMPLEX #90 tabs 0 09/04/24 Unknown Rx Allergy/AdvReac Type Severity Reaction Status Date / Time benazepril (From Lotensin) Allergy Mild DOESNT Verified 10/07/24 21:21 REMEMBER quinapril (From Accupril) Allergy Mild UNKNOWN Verified 10/07/24 21:21 Sulfa (Sulfonamide Allergy Mild Hives Verified 10/07/24 21:21 Antibiotics) verapamil (From Calan) Allergy Mild UNKNOWN Verified 10/07/24 21:21 Family History Other Asthma COPD (chronic obstructive pulmonary disease) CVA (cerebral vascular accident) Diabetes Heart disease Hypertension Myocardial infarction Surgical History Hx of amputation History of transmetatarsal amputation of right foot History of femoropopliteal bypass S/P carotid endarterectomy Social History household members: spouse Smoking Status: Never smoker alcohol intake: never substance use type: does not use ROS ROS ED Constitutional Constitutional ED: Denies chills or fever(s) Eyes Eyes: Denies change in vision or diplopia ENT ENT ED: Denies rhinorrhea or sore throat Cardiovascular Cardiovascular: Reports chest pain, leg edema and orthopnea; Denies palpitations, racing heartbeat or syncope Respiratory/Chest Respiratory/Chest: Reports cough, dyspnea and orthopnea; Denies sputum Gastrointestinal Gastrointestinal: Denies abdominal pain, diarrhea, nausea or vomiting Genitourinary Genitourinary ED: Denies dysuria or hematuria Musculoskeletal Musculoskeletal: Denies back pain or neck pain Integumentary Denies abscess or rash Neurologic Neurologic: Denies headache(s), paresthesias or weakness Psychiatric Psychiatric: Denies suicidal thoughts EXAM Physical Exam Const Vital Signs: 10/07/24 21:21 10/07/24 21:26 10/07/24 21:42 Temperature 98.3 F 98.3 F Temperature Source Oral Oral Pulse Rate 69 69 Respiratory Rate 24 H 24 H Respiratory Effort Short of Breath Respiratory Pattern Tachypnea Blood Pressure 119/45 L 119/45 L Blood Pressure Mean 69 69 Pulse Ox 100 100 Oxygen Delivery Method Room Air Room Air Room Air 10/07/24 22:09 10/07/24 22:24 10/07/24 22:26 Temperature 98.5 F Temperature Source Oral Pulse Rate 72 72 Respiratory Rate 19 H 13 Respiratory Effort Respiratory Pattern Blood Pressure 106/42 L Blood Pressure Mean 63 Pulse Ox 94 90 Oxygen Delivery Method Room Air Room Air 10/07/24 23:00 Temperature 98 F Temperature Source Oral Pulse Rate 64 Respiratory Rate 16 Respiratory Effort Respiratory Pattern Blood Pressure 109/53 L Blood Pressure Mean 71 Pulse Ox 90 Oxygen Delivery Method Room Air Positive well nourished and well developed General Appearance ED: well developed and NAD HEENT Reports moist mucous membranes normocephalic and atraumatic Eyes PERRL and EOMs intact bilaterally Neck full ROM, supple and no JVD Resp normal respiratory effort Resp Narrative: Bibasilar rhonchi, symmetric bilaterally trachea midline Cardio regular rate and regular rhythm Heart Sounds: murmur systolic II/ soft left sternal border GI non-tender and non-distended Auscultation: normoactive bowel sounds Palpation: soft Back/Spine no CVA tenderness General Back: other FROM Extremity normal to inspection General Extremety ED: Negative for edema, pulses abnormal or tenderness General Extremity: Negative for edema or pulses abnormal Neuro oriented x3, CN's II-XII intact bilaterally and no sensory deficits noted Sensorium / Orientation: awake and alert Motor Exam: strength 5/5 throughout Skin no rashes or lesions noted and no wounds MDM MDM MDM Narrative Medical decision making narrative: Initial study is the patient's EKG which shows some ST depressions in the lateral leads, but I do not see any evidence of a STEMI. Her rhythm is sinus, she has a left axis. Her troponin is a little bit elevated at 46 and her proBNP is 2300, consistent with acute congestive heart failure but more concerning than this is her hemoglobin of 6.5, suspicious for acute blood loss anemia possibly from GI bleeding since her last hemoglobin was almost double this although that was a couple months ago. Patient is amenable to blood transfusion so I typed and crossed her for 2 units. I sent a Hemoccult, it is positive she had no gross blood on rectal or tenderness. She consents to blood transfusion. Her BUN and creatinine are little elevated, possibly consistent with a mild upper GI bleed. She has had no hematemesis. She is on warfarin her INR is 2.7, she does not have a mechanical heart valve, therefore she will also need a transfusion of FFP to reverse her. She is not unstable and her vital signs are normal, I think reasonable to use FFP as opposed to factor reversal. Additionally troponin nonspecifically elevated in context of what is likely some endocardial ischemia, in this context that the treatment is blood transfusion which we are also doing. She can be admitted to a non-ICU setting. Chest x-ray 2 views of my interpretation appears to show small left pleural effusion, but I think her dyspnea is more attributable to her anemia. There may be a component of congestive heart failure here as well. Plan is for admission. Lab Data Attestation: I reviewed the patient's lab results. Labs: Laboratory Results - last 24 hr 10/07/24 10/07/24 22:22 23:21 WBC 7.4 RBC 1.93 L Hgb 6.5 L Hct 20.6 L MCV 106.7 H MCH 33.7 H MCHC 31.6 L RDW Std Deviation 72.3 H RDW Coeff of Kate 19.2 H Plt Count 184 MPV 11.5 Immature Gran % (Auto) 0.400 Neut % (Auto) 71.8 H Lymph % (Auto) 18.2 L Hudspeth % (Auto) 8.9 Eos % (Auto) 0.4 Baso % (Auto) 0.3 Absolute Neuts (auto) 5.3 Absolute Lymphs (auto) 1.35 Nucleated RBC % 1.5 Differential Comment SCANNED Platelet Estimate ADEQUATE Polychromasia 2+ Anisocytosis 2+ PT 29.4 H INR 2.7 Sodium 134 Potassium 3.9 Chloride 102 Carbon Dioxide 16.2 L Anion Gap 16 H BUN 36 H Creatinine 1.46 H Estim Creat Clear Calc 26.99 L Est GFR (MDRD) Non-Af 35 L BUN/Creatinine Ratio 24.9 H Glucose 140 H Calcium 8.6 Troponin T High Sens 46 H NT pro BNP II 2304 H Crossmatch See Detail Radiography Diagnostic Testing: Clinical Impression(s) from Imaging Studies Chest X-Ray 10/07/24 22:40 IMPRESSION: Trace left pleural effusion and mild cardiomegaly. Reading Location: [facility] Rhythm Strip Rhythm Strip: Sinus Rhythm Rate: 65 Ectopy: None EKG Initial EKG: Attestation: I personally reviewed and interpreted this EKG as follows: Interpretation: Sinus Rhythm, No Acute Injury Pattern and S-T Depression (1mm, 1 aVL, V3-6; no JOSE) Prior: Changed Management Discussion w/another healthcare provider: Hospitalist Critical Care Time Critical Care Time: Yes Critical care time (excluding procedures): 30-74 minutes (36 min), Including time spent:, Discussing w/Patient &/or Family/Estate Attorney, Discussing w/Consultants, Arranging Admission or Transfer and Performing Direct Patient Care at Bedside Discharge Plan Triage Chief Complaint: Shortness of Breath ED Provider: Matheus Fabian Dx/Rx/DC Orders Clinical Impression: ABLA (acute blood loss anemia), HFrEF (heart failure with reduced ejection fraction), Acute upper GI bleed, Pleural effusion, left, Warfarin-induced coagulopathy, Subendocardial ischemia Prescriptions: No Action simvastatin 80 mg tablet 80 mg PO QDAY ferrous sulfate [FeroSul] 325 mg (65 mg iron) Tablet 325 mg PO DAILY@1200 30 Days Qty: 30 0RF tizanidine 2 mg Tablet 4 mg PO Q8 PRN (Reason: Muscle Spasm) 30 Days Qty: 180 0RF clopidogrel 75 mg Tablet 75 mg PO DAILY 30 Days Qty: 30 0RF pantoprazole 40 mg Tablet,Delayed Release (Dr/Ec) 40 mg PO BID 30 Days Qty: 60 0RF oxybutynin chloride 10 mg tablet extended release 24hr 10 mg PO DAILY glimepiride 2 mg tablet 2 mg PO DAILY sertraline 25 mg tablet 25 mg PO DAILY warfarin 2 mg tablet 2 mg PO .MWF furosemide 40 mg Tablet 40 mg PO DAILY 30 Days Qty: 60 2RF magnesium chloride [Mag 64] 64 mg tablet,delayed release (DR/EC) 128 mg PO DAILY Cinnamon 2 tab PO BID warfarin 3 mg tablet 3 mg PO SUTUTHSA gabapentin 100 mg capsule 100 mg PO BID Qty: 0 0RF metoprolol succinate 50 mg tablet extended release 24 hr 50 mg PO BID Qty: 1 0RF potassium chloride 20 mEq tablet extended release 20 meq PO QDAY losartan 100 mg tablet 100 mg PO QDAY Qty: 90 3RF amlodipine 10 mg tablet 10 mg PO .COMPLEX Qty: 90 3RF Rx Instructions: 10 mg orally DAILY: this is a dose increase, pt was using up her 5mg tablets to = 10 mg. Pt is out of med and is in store now. PLEASE FILL, thank you!!; Primary Care Provider: Kendra Lucio Referrals: Kendra Lucio MD [Primary Care Provider] - Print Language: Turkish Disposition Disposition: Acute Care Hospital [facility]
[2024-10-07] MEDS: Albuterol 2.5 MG/3 ML VIAL.NEB. INHALATION (22:09)
--- OUTSIDE RECORDS SUMMARY | 2024-10-07 22:15 | XMS RPT_ITS | CCD ---
Author Organization [facility] Care Team Providers Care Nurse Sitter Name Role Phone Kierra Santiago MD Primary Care Provider Kierra Santiago MD Primary Care Provider Bety RN, Nancy Sarah Unavailable Bety RN, Nancy Sarah Unavailable Colón EDGE KITTER.CERTIFIED JUVENILE PROBATION OFFICER, Anastasiia Unavailable Eric EDGE KITTER.REPORT SPECIALIST, Sheryl Unavailable Eric EDGE KITTER.REPORT SPECIALIST, Sheryl Belen Unavailable Eric EDGE KITTER.REPORT SPECIALIST, Sheryl Unavailable Dr. Kierra Santiago MD Primary Care Provider [phone] Luis ERICKSON, Dr. Jason Hilliard Admit Provider Luis ERICKSON, Dr. Jason Hilliard Attending Provider Dr. Jason Smith MD, Chi Referring Provider Evangelist JAVIER, Dr. Knight Other Provider Dr. Shaan Rojas MD Other Provider Luis ERICKSON, Dr. Jason Hilliard Other Provider Laura Armendariz Attending Provider Dr. Robb Giron DO Attending Provider Dr. Kierra Santiago MD Referring Provider Dr. Robb Giron DO Other Provider [phone] Roly Herrera MD Attending Provider Dr. Shaan Rojsa MD Attending Provider [phone] Crystal ERICKSON, Dr. Garduno Referring Provider [phone] Javier ERICKSNO, Dr. Dunham Other Provider Socrates SEGURA, Laura Referring Provider [phone] Ese Solano Attending Provider Ese Solano Referring Provider Roof CENTRAL LAB TECHNICIAN-C, Dominick H Attending Provider Julio Cesar CENTRAL LAB TECHNICIAN-C, Dominick H Referring Provider Luis ERICKSON, Dr. Jason Hilliard Other Provider Socrates SEGURA, Laura Attending Provider [phone] Eric EDGE KITTER.REPORT SPECIALIST, Sheryl Unavailable Pamela ERICKSON, Dr. Kierra Solis Primary Care Provider Pamela ERICKSON, Dr. Kierra Solis Referring Provider Laura Armendariz Attending Provider [phone] TALAMPAS, KIERRA D Primary Care Unavailable COLÓN, ANASTASIIA Referring Unavailable SLEIK, KHALED MELOUD Attending Unavailable SLEIK, KHALED MELOUD Referring Unavailable TALAMPAS, KIERRA D Primary Care Unavailable TALAMPAS, KIERRA D Referring Unavailable TALAMPAS, KIERRA D Primary Care Unavailable TALAMPAS, KIERRA D Primary Care Unavailable DELGADO, MARY KAY D Attending Unavailable DELGADO, MARY KAY D Referring Unavailable COLÓN, ANASTASIIA Referring Unavailable TALAMPAS, KIERRA D Primary Care Unavailable DELGADO, MARY KAY D Referring Unavailable TALAMPAS, KIERRA D Primary Care Unavailable DELGADO, MARY KAY D Attending Unavailable DELGADO, MARY KAY D Referring Unavailable TALAMPAS, KIERRA D Primary Care Unavailable SLEIK, KHALED MELOUD Referring Unavailable TALAMPAS, KIERRA D Primary Care Unavailable TALAMPAS, KIERRA D Primary Care Unavailable TALAMPAS, KIERRA D Primary Care Unavailable COLÓN, ANASTASIIA Attending Unavailable TALAMPAS, KIERRA D Primary Care Unavailable COLÓN, ANASTASIIA Referring Unavailable TALAMPAS, KIERRA D Primary Care Unavailable JOELLE BARRETO Referring Unavailable TALAMPAS, KIERRA D Primary Care Unavailable TALAMPAS, KIERRA D Primary Care Unavailable JOELLE BARRETO Referring Unavailable TALAMPAS, KIERRA D Primary Care Unavailable SARAY ACOSTA Referring Unavailable TALAMPAS, KIERRA D Primary Care Unavailable TALAMPAS, KIERRA D Primary Care Unavailable COLÓN, ANASTASIIA Referring Unavailable TALAMPAS, KIERRA D Primary Care Unavailable TALAMPAS, KIERRA D Primary Care Unavailable TALAMPAS, KIERRA D Primary Care Unavailable COLÓN, ANASTASIIA Referring Unavailable TALAMPAS, KIERRA D Primary Care Unavailable TALAMPAS, KIERRA D Primary Care Unavailable TALAMPAS, KIERRA D Primary Care Unavailable BARRIE, LELO J Referring Unavailable TALAMPAS, KIERRA D Referring Unavailable TALAMPAS, KIERRA D Primary Care Unavailable TALAMPAS, KIERRA D Primary Care Unavailable SELF Referring Unavailable TALAMPAS, KIERRA D Primary Care Unavailable TALAMPAS, KIERRA D Primary Care Unavailable COLÓN, ANASTASIIA Referring Unavailable TALAMPAS, KIERRA D Primary Care Unavailable COLÓN, ANASTASIIA Attending Unavailable COLÓN, ANASTASIIA Referring Unavailable TALAMPAS, KIERRA D Primary Care Unavailable JOELLE BARRETO Attending Unavailable TALAMPAS, KIERRA D Primary Care Unavailable TERRENCE JANE Attending Unavailable COLÓN, ANASTASIIA Referring Unavailable TALAMPAS, KIERRA D Primary Care Unavailable COLÓN, ANASTASIIA Referring Unavailable TALAMPAS, KIERRA D Primary Care Unavailable TALAMPAS, KIERRA D Primary Care Unavailable COLÓN, ANASTASIIA Referring Unavailable COLÓN, ANASTASIIA Attending Unavailable TALAMPAS, KIERRA D Attending Unavailable TALAMPAS, KIERRA D Primary Care Unavailable COLÓN, ANASTASIIA Referring Unavailable TALAMPAS, KIERRA D Primary Care Unavailable TALAMPAS, KIERRA D Primary Care Unavailable SELF Referring Unavailable COLÓN, ANASTASIIA Attending Unavailable TALAMPAS, KIERRA D Primary Care Unavailable COLÓN, ANASTASIIA Referring Unavailable TALAMPAS, KIERRA D Primary Care Unavailable COLÓN, ANASTASIIA Referring Unavailable TALAMPAS, KIERRA D Primary Care Unavailable TALAMPAS, KIERRA D Primary Care Unavailable COLÓN, ANASTASIIA Referring Unavailable TALAMPAS, KIERRA D Primary Care Unavailable COLÓN, ANASTASIIA Referring Unavailable TALAMPAS, KIERRA D Primary Care Unavailable TALAMPAS, KIERRA D Primary Care Unavailable COLÓN, ANASTASIIA Referring Unavailable TALAMPAS, KIERRA D Primary Care Unavailable COLÓN, ANASTASIIA Attending Unavailable TALAMPAS, KIERRA D Primary Care Unavailable COLÓN, ANASTASIIA Referring Unavailable TALAMPAS, KIERRA D Primary Care Unavailable TALAMPAS, KIERRA D Primary Care Unavailable COLÓNANASTASIIA Adler Referring Unavailable Pamela ERICKSON, Dr. Kierra Solis Primary Care Provider Pamela ERICKSON, Dr. Kierra Solis Referring Provider Friend , Dr. Zamudio Attending Provider Friend DO, Dr. Zamudio Other Provider [facility] Dominick YUN Other Provider Crystal ERICKSON, Dr. Garduno Attending Provider Referred, Self Attending Provider Unavailable Evangelist DPM, Dr. Knight Attending Provider Evangelist DPM, Dr. Knight Referring Provider Talampas, Kierra D Primary Care Unavailable Jaimie Vargas Admitting Unavailable Jaimie Vargas Consulting Unavailable Sukhdev Hernandez Attending Unavailable Tavares Sargent Consulting Unavailable Robb Giron Attending Unavailable Talampas, Kierra D Primary Care Unavailable Talampas, Kierra D Referring Unavailable Talampas, Kierra D Referring Unavailable Talampas, Kierra D Primary Care Unavailable Robb Giron Attending Unavailable Talampas, Kierra D Primary Care Unavailable Suresh Merida Admitting Unavailable Sukhdev Hernandez Attending Unavailable Eugene Blanca Consulting Unavailable Suresh Merida Consulting Unavailable Shana Rojas Consulting Unavailable Van [place]ley Consulting Unavailable David, Sukhdev Consulting Unavailable Talampas, Kierra D Primary Care Unavailable Luis, Jason Chi Admitting Unavailable Luis, Jason Chi Attending Unavailable Luis, Jason Chi Referring Unavailable Eugene Blanca Consulting Unavailable Shaan Rojas Consulting Unavailable Doron Wong Attending Unavailable Doron Wong Consulting Unavailable Suresh Merida Admitting Unavailable Talampas, Kierra D Primary Care Unavailable Suresh Merida Consulting Unavailable Jaimie Vargas Attending Unavailable David, Sukhdev Consulting Unavailable Van [place]ley Consulting Unavailable Eugene Blanca Consulting Unavailable Shaan Rojas Consulting Unavailable Doron Wong Consulting Unavailable Talampas, Kierra D Primary Care Unavailable Kimberlyn King Attending Unavaila ble Sementi, Kimberlyn Serrano Referring Unavaila ble Sementi, Kimberlyn Serrano Admitting Unavaila ble Talampas, Kierra D Primary Care Unavailable Referred, Self Attending Unavailable Crowell, Laura Attending Unavailable Crowell, Laura Referring Unavailable Talampas, Kierra D Primary Care Unavailable Ese Hillman Referring Unavailable Talampas, Kierra D Primary Care Unavailable Ese Hillman Attending Unavailable Talampas, Kierra D Primary Care Unavailable Roof CENTRAL LAB TECHNICIAN, Dominick Faria Attending Unavailable Roof CENTRAL LAB TECHNICIAN, Dominick Faria Referring Unavailable Crowell, Laura Attending Unavailable Crowell, Laura Referring Unavailable Talampas, Kierra D Primary Care Unavailable Roof CENTRAL LAB TECHNICIAN, Dominick Faria Consulting Unavailable Talampas, Kierra D Primary Care Unavailable Roof CENTRAL LAB TECHNICIAN, Dominick Faria Attending Unavailable Roof CENTRAL LAB TECHNICIAN, Dominick Faria Referring Unavailable Talampas, Kierra D Primary Care Unavailable Roof CENTRAL LAB TECHNICIAN, Dominick Faria Attending Unavailable Roof CENTRAL LAB TECHNICIAN, Dominick Faria Referring Unavailable Talampas, Kierra D Primary Care Unavailable Crowell, Laura Attending Unavailable Crowell, Laura Referring Unavailable Talampas, Kierra D Primary Care Unavailable Matheus Fabian Attending Unavailable Suresh Merida Attending Unavailable Crowell, Laura Attending Unavailable Doron Wong Referring Unavailable Sukhdev Hernandez Referring Unavailable Talampas, Kierra D Referring Unavailable Talampas, Kierra D Primary Care Unavailable Crowell, Laura Attending Unavailable Roly Herrera Attending Unavailable Talampas, Kierra D Referring Unavailable Talampas, Kierra D Primary Care Unavailable Crowell, Laura Attending Unavailable Talampas, Kierra D Referring Unavailable Talampas, Kierra D Primary Care Unavailable Ese Hillman Attending Unavailable Talampas, Kierra D Referring Unavailable Talampas, Kierra D Primary Care Unavailable Talampas, Kierra D Referring Unavailable Talampas, Kierra D Primary Care Unavailable Roof CENTRAL LAB TECHNICIAN, Dominick Faria Attending Unavailable Talampas, Kierra D Primary Care Unavailable Shaan Rojas Attending Unavailable Crowell, Laura Referring Unavailable Talampas, Kierra D Primary Care Unavailable Shaan Rojas Attending Unavailable Crowell, Laura Referring Unavailable Talampas, Kierra D Primary Care Unavailable Key Cano Attending Unavailable Talampas, Kierra D Primary Care Unavailable Alfredo Celaya Referring Unavailable Alfredo Celaya Attending Unavailable Talampas, Kierra D Primary Care Unavailable Beverly Wilhelm Attending Unavailable Crowell, Laura Attending Unavailable Talampas, Kierra D Primary Care Unavailable Talampas, Kierra D Referring Unavailable Talampas, Kierra D Primary Care Unavailable Crowell, Laura Attending Unavailable Talampas, Kierra D Referring Unavailable Camp Dennison, Shaan Referring Unavailable Crystal, Shaan Attending Unavailable Talampas, Kierra D Primary Care Unavailable Talampas, Kierra D Primary Care Unavailable [place], Shaan Attending Unavailable Crowell, Laura Referring Unavailable Roly Herrera Attending Unavailable Talampas, Kierra D Primary Care Unavailable Camp [place]enn[place], Shaan Referring Unavailable Jaimie Vargas Consulting Unavailable Crowell, Laura Attending Unavailable Talampas, Kierra D Primary Care Unavailable Luis, Jason Chi Referring Unavailable Luis, Jason Chi Admitting Unavailable Eugene Blanca Consulting Unavailable Crystal, Shaan Consulting Unavailable Luis, Jason Chi Consulting Unavailable Robb Giron Attending Unavailable Talampas, Kierra D Primary Care Unavailable Tavares Sargent Attending Unavailable Jaimie Vargas Admitting Unavailable Jaimie Vargas Consulting Unavailable Tavares Sargent Consulting Unavailable Sukhdev Hernandez Attending Unavailable David Sukhdev Consulting Unavailable Talampas, Kierra D Primary Care Unavailable Crystal, Shaan Consulting Unavailable Beverly Wilhelm Attending Unavailable Koram, Ivett Veronique Admitting Unavailable Evangelist, Eugene Consulting Unavailable Koram, Ivett Veronique Consulting Unavailable Mohamud Wilhelmyn Consulting Unavailable Crystal, Shaan Attending Unavailable Camp [place]enn[place], Shaan Referring Unavailable [place], Shaan Consulting Unavailable Koram, Ivett Veronique Admitting Unavailable Wunning, Eugene Consulting Unavailable Koram, Ivett Veronique Consulting Unavailable Talampas, Kierra D Primary Care Unavailable Crowell, Laura Attending Unavailable Crowell, Laura Referring Unavailable Talampas, Keirra D Primary Care Unavailable Crowell, Laura Attending Unavailable Talampas, Kierra D Primary Care Unavailable Wunning, Eugene Referring Unavailable Eugene Blanca Attending Unavailable Crystal, Shaan Referring Unavailable Camp [place]enn[place], Shaan Attending Unavailable Talampas, Kierra D Primary Care Unavailable Roly Herrera Consulting Unavailable Talampas, Kierra D Primary Care Unavailable Referred, Self Attending Unavailable Crystal, Shaan Attending Unavailable Mohamud Wilhelmyn Referring Unavailable Jaimie Vargas Attending Unavailable Koram, Ivett Veronique Attending Unavailable Camp [place]enn[place], Shaan Referring Unavailable White, Kelsie L Attending Unavailable White, Kelsie L Consulting Unavailable Crowell, Laura Attending Unavailable White, Kelsie L Referring Unavailable Koram, Ivett Veronique Referring Unavailable Talampas, Kierra D Primary Care Unavailable Friend, Robb Consulting Unavailable Friend, Robb Attending Unavailable Talampas, Kierra D Referring Unavailable Talampas, Kierra D Referring Unavailable Friend, Robb Attending Unavailable Friend, Robb Consulting Unavailable Talampas, Kierra D Primary Care Unavailable Jaimie Vargas Attending Unavailable Talampas, Kierra D Primary Care Unavailable Crowell, Laura Attending Unavailable Crowell, Laura Referring Unavailable Allergies Allergy Classification Reported Allergen(s) Allergy Type Date of Onset Reaction(s) Facility Angiotensin Converting Enzyme (JUAN J) Inhibitors (4 sources) quinapril Drug Allergy 5 Unknown [facility] Calcium Channel Blockers (2 sources) Verapamil Drug Allergy 5 Unknown [facility] Sulfonamides (antibiotic) (2 sources) Sulfonamides (Antibiotic) Drug Allergy 5 Unknown [facility] (20 sources) benazepril; Translations: [BENAZEPRIL HCL] Drug Allergy 5 Unknown [facility] Work Phone: (20 sources) quinapril; Translations: [QUINAPRIL] Drug Allergy 5 Unknown [facility] Work Phone: [phone] (20 sources) Sulfonamides (Antibiotic); Translations: [SULFA (SULFONAMIDE ANTIBIOTICS)] Propensity to adverse reactions to drug 5 Unknown [facility] Work Phone: [phone] (20 sources) Verapamil; Translations: [VERAPAMIL] Drug Allergy 5 Unknown [facility] Work Phone: [phone] (13 sources) metFORMIN Drug Allergy 3 Intolerance [facility] (20 sources) DULoxetine; Translations: [DULOXETINE] Drug Allergy 4 Intolerance [facility] (5 sources) benazepril Drug Allergy 5 DOESNT REMEMBER [facility] (5 sources) Sulfonamides (Antibiotic) Allergy to substance 5 Hives [facility] (1 source) benazepril Drug Allergy 5 [facility] (1 source) quinapril Drug Allergy 5 [facility] (1 source) Sulfonamides (Antibiotic) Drug allergy (disorder) 5 [facility] (1 source) Verapamil Drug Allergy [facility] Medications Current Medications Medication Drug Class(es) Dates Sig (Normalized) Sig (Original) acetaminophen 500 mg oral tablet (20 sources) Start: 01-27-2024 acetaminophen (TYLENOL) 500 mg tablet EVERY 8 HOURS 01/27/2024 Active Start: 01-27-2024 End: 06-12-2024 take 2 tablets by mouth every eight hours Acetaminophen 500 mg Tablet Discontinued 1000 mg PO EVERY 8 HOURS 0 January 27, 2024 12:00am June 12, 2024 9:55am amLODIPine 10 mg oral tablet (20 sources) Dihydropyridine Calcium Channel Hillary Start: 08-29-2024 End: 09-04-2024 Amlodipine 10 mg tablet Active 10 mg PO .COMPLEX 90 September 04, 2024 10:48am 10 mg orally DAILY: this is a dose increase, pt was using up her 5mg tablets to = 10 mg. Pt is out of med and is in store now. PLEASE FILL, thank you!!; Start: 08-20-2024 End: 08-29-2024 take 1 tablet by mouth once daily Amlodipine 5 mg tablet Discontinued 5 mg PO daily August 20, 2024 12:00am August 29, 2024 11:34am Start: 10-10-2023 End: 10-09-2024 take 1 tablet by mouth once daily amLODIPine (NORVASC) 2.5 mg tablet Take 1 tablet by mouth once daily. For blood pressure 90 tablet 3 10/10/2023 01/11/2024 Discontinued Start: 09-23-2023 End: 01-03-2024 take 1 tablet by mouth once daily Amlodipine 5 mg tablet Discontinued 5 mg PO DAILY September 23, 2023 12:00am January 03, 2024 7:25am Start: 07-01-2022 End: 10-10-2023 take 1.5 tablets by mouth once daily amLODIPine (NORVASC) 5 mg tablet Take 1.5 tablets by mouth once daily. 135 tablet 3 06/07/2023 10/10/2023 Discontinued End: 07-01-2022 take 7.5 mg by mouth once daily amLODIPine (NORVASC) 5 mg tablet Take 7.5 mg by mouth once daily. 0 07/01/2022 Discontinued Comment on above: Take 1.5 tablets by mouth once daily. Take 7.5 mg by mouth once daily. amoxicillin 875 mg / clavulanate 125 mg oral tablet (1 source) Penicillin-class Antibacterial Start: End: take 1 tablet by mouth twice daily amoxicillin-clavula chase potassium (AUGMENTIN) 875-125 mg per tablet Take 1 tablet by mouth two times a day for 5 days. 10 tablet 0 12/12/2023 12/17/2023 Active Cinnamon Preparation (3 sources) Non-Standardized Food Allergenic Extract Start: Cinnamon Active 2 {tbl} PO TWICE A DAY August 17, 2024 12:00am clopidogrel 75 mg oral tablet (20 sources) [id number] Platelet Inhibitor Start: End: take 1 tablet by mouth once daily Clopidogrel 75 mg Tablet Active 75 mg PO DAILY April 05, 2024 1:00am doxycycline monohydrate 100 mg oral tablet (1 source) Tetracycline-class Drug Start: End: take 1 tablet by mouth twice daily doxycycline monohydrate 100 mg tablet Take 1 tablet by mouth two times a day for 5 days. 10 tablet 0 12/12/2023 12/17/2023 Active ferrous sulfate 325 mg oral tablet (20 sources) Start: take 1 tablet by mouth once daily Ferrous Sulfate (Ferosul) 325 mg (65 mg iron) Tablet Active 325 mg PO DAILY@1200 30 February 03, 2024 12:00am Comment on above: Take 325 mg by mouth . furosemide 40 mg oral tablet (20 sources) Loop Diuretic Start: take 1 tablet by mouth once daily Furosemide 40 mg Tablet Active 40 mg PO DAILY 60 March 19, 2024 4:39pm Start: 01-03-2024 End: 03-19-2024 take 1 tablet by mouth twice daily Furosemide 40 mg Tablet Discontinued 40 mg PO TWICE DAILY January 03, 2024 12:00am March 19, 2024 4:40pm glimepiride 2 mg oral tablet (20 sources) Sulfonylurea Start: 11-14-2023 End: 02-23-2024 take 1 tablet by mouth once daily Glimepiride 2 mg tablet Active 2 mg PO DAILY December 31, 2023 12:00am iv contrast (will be provided with radiology test) (2 sources) Start: 05-08-2024 End: 05-09-2024 inject 1 dose intravenously once iv contrast (will be provided with radiology test) Indications: Occlusion and stenosis of unspecified carotid artery CTA Head/Neck W No IV access, insert saline lock prior to the sedation, infusion, injection for imaging exam. Discontinue saline lock post exam. If Pt. has a central line or IVAD, may access for administration according to line specific nursing protocol. Once exam is complete flush line and de-access according to line specific nursing protocol in the [place] contrast administration guidelines link. 1 Each 05/08/2024 05/09/2024 Active losartan potassium 100 mg oral tablet (20 sources) Angiotensin 2 Receptor Hillary Start: 08-20-2024 take 1 tablet by mouth once daily Losartan 100 mg tablet Active 100 mg PO daily August 20, 2024 12:00am Start: 06-12-2024 Losartan 25 mg tablet Discontinued 12.5 mg PO THREE TIMES A DAY June 12, 2024 1:00am Start: 01-03-2024 End: 02-22-2025 take 1 tablet by mouth at dinner Losartan 50 mg Tablet Discontinued 50 mg PO WITH DINNER January 03, 2024 12:00am April 05, 2024 8:44pm magnesium chloride 598 mg delayed release oral tablet (17 sources) Start: 08-17-2024 Magnesium Chlo ride [Magnesium Chloride 64 Mg (Magnesium Chloride) Tablet,Delayed Release] (Magnesium Chloride 64 Mg (Magnesium Chloride) Tablet,Delayed ) 64 mg tablet,delayed release (DR/EC) Active 128 mg PO DAILY August 17, 2024 12:00am Start: 02-03-2024 End: 06-20-2024 Magnesium Chloride (Mag 64) 64 mg Tablet,Delayed Release (Dr/Ec) Discontinued 128 mg PO DAILY February 03, 2024 12:00am June 20, 2024 11:01am End: 04-09-2024 take 1 tablet by mouth twice daily magnesium chloride (MAG64) [address] tablet Take 64 mg by mouth two times a day. 04/09/2024 Discontinued (Discontinued by Patient) magnesium chloride 64 mg magnesium tab (20 sources) Start: 04-17-2024 take 2 tablets by mouth once daily magnesium chloride 64 mg magnesium tab Take 2 tablets by mouth once daily. 180 tablet 3 04/17/2024 Active End: 04-17-2024 magnesium chloride 64 mg mag nesium tab Take by mouth. 04/17/2024 Discontinued 24 hr metoprolol succinate 50 mg extended release oral tablet (20 sources) beta-Adrenergic Hillary Start: 06-28-2024 End: 06-28-2025 take 1 tablet by mouth twice daily Metoprolol Succinate 50 mg tablet extended release 24 hr Active 50 mg PO TWICE A DAY July 20, 2024 12:00am Start: 03-19-2024 End: 07-20-2024 take 1 tablet by mouth every twenty-four hours at dinner Metoprolol Succinate 25 mg Tablet Extended Release 24 Hr Discontinued 25 mg PO WITH DINNER April 05, 2024 1:00am July 20, 2024 4:17pm Start: 01-03-2024 End: 05-04-2025 take 1 tablet by mouth once daily Metoprolol Succinate 50 mg tablet extended release 24 hr Discontinued 50 mg PO DAILY January 03, 2024 12:00am April 05, 2024 8:45pm Start: 12-30-2023 End: 12-29-2024 take 1 tablet by mouth twice daily metoprolol tartrate, short acting, 75 mg tab Take 1 tablet by mouth two times a day. 180 tablet 3 12/30/2023 01/11/2024 Discontinued Start: 09-23-2023 End: 01-03-2024 Metoprolol Tartrate 50 mg ta blet Discontinued 25 mg PO THREE TIMES A DAY September 23, 2023 12:00am January 03, 2024 7:27am Start: 07-14-2023 End: 07-13-2024 take 1.5 tablets by mouth twice daily metoprolol tartrate, short acting, (LOPRESSOR) 50 mg tablet Take 1.5 tablets by mouth two times a day. 270 tablet 3 07/14/2023 12/30/2023 Discontinued Start: 07-01-2022 End: 07-14-2023 take 3 tablets by mouth twice daily metoprolol tartrate, short acting, (LOPRESSOR) 25 mg tablet Take 3 tablets by mouth twice daily. 270 tablet 3 01/05/2023 07/14/2023 Discontinued Comment on above: Take 3 tablets by mo [facility] twice daily. Take 75 mg by mouth twice daily. Take 1.5 tablets by mouth two times a day. 24 hr oxybutynin chloride 10 mg extended release oral tablet (20 sources) Cholinergic Muscarinic Antagonist Start: 3 End: 5 take 1 tablet by mouth once daily Oxybutynin Chloride 10 mg tablet extended release 24hr Active 10 mg PO DAILY September 23, 2023 12:00am Comment on above: Take 1 tablet by jorge once daily. Take 10 mg by mouth once daily. pantoprazole 40 mg delayed release oral tablet (20 sources) Proton Pump Inhibitor Start: End: take 1 tablet by mouth every twelve hours pantopraz[address] (PROTONIX) 40 mg tablet Indications: Acute gastric ulcer, unspecified whether gastric ulcer hemorrhage or perforation present , Duodenal ulcer Take 1 tablet by mouth every 12 hours. 180 tablet 1 04/17/2024 Active Start: 04-05-2024 take 1 tablet by [facility] twice daily Pantoprazole 40 mg Tablet,Delayed Release (Dr/Ec) Active 40 mg PO TWICE A DAY 60 April 05, 2024 1:00am potassium chloride 20 meq extended release oral tablet (20 sources) Start: 08-20-2024 take 1 tablet by mouth once daily Potassium Chloride 20 mEq tablet extended release Active 20 meq PO daily August 20, 2024 12:00am Start: 07-20-2024 End: 08-20-2024 take 1 tablet by mouth three times daily Potassium Chloride 20 mEq tablet,ER particles/crystals Discontinued 20 meq PO THREE TIMES A DAY 0 July 20, 2024 4:19pm August 20, 2024 9:07am Start: 04-05-2024 End: 08-06-2024 take 1 tablet by mouth twice daily at mealtime Potassium Chloride 20 mEq Tablet,Er Particles/Crystals Discontinued 20 meq PO TWICE DAILY WITH MEALS 60 April 05, 2024 1:00am July 20, 2024 4:21pm sertraline 25 mg oral tablet (20 sources) Serotonin Reuptake Inhibitor Start: 03-02-2024 End: 06-19-2024 take 1 tablet by mouth once daily Sertraline 25 mg tablet Active 25 mg PO DAILY March 07, 2024 1:00am tiZANidine 4 mg oral tablet (20 sources) Central alpha-2 Adrenergic Agonist Start: 06-19-2024 take 1 tablet by mouth every eight hours as needed tiZANidine (ZANAFLEX) 4 mg tablet Take 1 tablet by mouth every 8 hours as needed. 30 tablet 2 06/19/2024 Active Start: 04-05-2024 End: 06-19-2024 take 2 tablets by mouth every eight hours as needed for muscle spasms Tizanidine 2 mg Tablet Active 4 mg PO EVERY 8 HOURS as needed for Muscle Spasm 180 April 05, 2024 1:00am Start: 03-09-2024 End: 04-05-2024 take 1 tablet by mouth at bedtime as needed for muscle spasms Tizanidine 4 mg tablet Discontinued 4 mg PO AT BEDTIME NEEDED as needed for muscle spasm March 09, 2024 1:00am April 05, 2024 8:46pm Start: 10-10-2023 End: 02-23-2024 take 1 tablet by mouth at bedtime as needed for muscle spasms Tizanidine 4 mg tablet Discontinued 4 mg PO AT BEDTIME NEEDED as needed for muscle spasm December 31, 2023 12:00am February 03, 2024 2:26pm warfarin sodium 3 mg oral tablet (20 sources) Vitamin K Antagonist Start: 08-17-2024 take 1 tablet by mouth once Warfarin 3 mg tablet Active 3 mg PO every Tuesday, , , Sat August 17, 2024 12:00am Start: 07-02-2022 End: 05-03-2024 Warfarin 2 mg tablet Discont inued 2 mg PO DAILY September 23, 2023 12:00am February 03, 2024 2:26pm On Hold: Until instructed otherwise Pt takes 2mg everyday except for Wednesdays she takes 1 mg Start: 07-01-2022 End: 12-21-2022 take 0.5 tablet by mouth once daily warfarin (COUMADIN) 5 mg tablet Take 0.5 tablets by mouth once daily. or as directed 90 tablet 3 07/01/2022 12/21/2022 Discontinued End: 07-01-2022 take 2.5 mg by mouth once daily warfarin (COUMADIN) 0. 5 mg Take 2.5 mg by mouth once daily. 0 07/01/2022 Discontinued Comment on above: Take 1 tablet by jorge th once daily. Take 0.5 tablets by mouth once daily. or as directed Take 2.5 mg by mouth once daily. Take 1 tablet by jorge th once daily. 1mg T, TH mg M,W,F, Sat, SUN or as directed Completed/Discontinued Medications Medication Drug Class(es) Dates Sig (Normalized) Sig (Original) Cxlut-Rqxs-Uhxjq-Co llag-Mv-Min (Ronaldo (With Collagen)) 7-7-1.5 gram Powder In Packet (5 sources) Start: 02-03-2024 End: 03-07-2024 Dtwnx-Qsyo-Rvimu-Col lag-Mv-Min (Ronaldo (With Collagen)) 7-7-1.5 gram Powder In Packet Discontinued 1 NMA PO TWICE DAILY WITH MEALS 60 30 February 03, 2024 12:00am March 07, 2024 10:50pm argin/glut/CaHMB/co llag/mv-min (RONALDO, WITH COLLAGEN, ORAL) (15 sources) End: 04-17-2024 argin/glut/CaHMB/col lag/mv-min (RONALDO, WITH COLLAGEN, ORAL) Take by mouth. 04/17/2024 Discontinued argin/glut/CaHMB /collag/mv-min (RONALDO, WITH COLLAGEN, ORAL) Take by mouth. Active ascorbic acid 1000 mg oral tablet (20 sources) Vitamin C End: 02-23-2024 take 1 tablet by mouth once daily Ascorbic Acid (VITAMIN C) 1,000 mg tablet Take 1,000 mg by mouth once daily. 02/23/2024 Discontinued Comment on above: Take 1,000 mg by mouth once daily. aspirin 325 mg oral tablet (20 sources) Platelet Aggregation Inhibitor, Nonsteroidal Anti-inflammatory Drug End: 02-23-2024 take 1 tablet by mouth once daily aspirin 325 mg tablet Take 325 mg by mouth once daily. 02/23/2024 Discontinued Comment on above: Take 325 mg by mouth once daily. CALCIUM CARB/MAGNESIUM CMB #10 (SUSAN-MAG ORAL) (3 sources) End: 08-02-2022 CALCIUM CARB/MAGNESIUM CMB #10 (SUSAN-MAG ORAL) Take by mouth. 0 08/02/2022 Discontinued CALCIUM CARB/MAG NESIUM CMB #10 (SUSAN-MAG ORAL) Take by mouth. 0 Active Comment on above: Take by mouth. Calcium Carbonate (20 sources) End: 04-17-2024 calcium carbonate (CALCIUM 6 00 ORAL) Take 1,200 mg by mouth. 04/17/2024 Discontinued calcium carbonat e (CALCIUM 600 ORAL) Take 1,200 mg by mouth. Active calcium carbonat e (CALCIUM 600 ORAL) Take 1,200 mg by mouth. 0 Active Comment on above: Take 1,200 mg by jorge th. Calcium Carbonate / vitamin D3 (3 sources) End: 08-02-2022 CALCIUM CARBONATE/VITAMIN D3 (VITAMIN D-3 ORAL) Take by mouth. 0 08/02/2022 Discontinued CALCIUM CARBONAT E/VITAMIN D3 (VITAMIN D-3 ORAL) Take by mouth. 0 Active Comment on above: Take by mouth. cephalexin 500 mg oral capsule (5 sources) Cephalosporin Antibacterial Start: End: take 1 capsule by mouth every six hours Cephalexin 500 mg capsule Discontinued 500 mg PO EVERY 6 HOURS 40 January 13, 2024 12:00am January 27, 2024 11:19am cholecalciferol 0.125 mg oral tablet (20 sources) Vitamin D End: take 1-2 tablets by mouth once daily cholecalciferol (VITAMIN D-3) 5,000 unit tab Take 5,000 Units by mouth. Take 1-2 tablet daily 04/17/2024 Discontinued End: 11-18-2023 take 1 capsule by mouth once daily Cholecalciferol, Vitamin D3, 25 mcg (1,000 unit) cap Take 1,000 Units by mouth once daily. 0 11/18/2023 Discontinued Cholecalciferol, Vitamin D3, (VITAMIN D) 25 mcg (1,000 unit) cap Take 1,000 Units by mouth once daily. 0 Active Comment on above: Take 1,000 Units by mouth once daily. Take 5,000 Units by mouth. Take 1-2 tablet daily chromium picolinate 0.2 mg oral tablet (20 sources) End: 02-23-2024 take 1 tablet by mouth once daily Chromium Picolinate 200 mcg tab Take 1 tablet by mouth once daily. 02/23/2024 Discontinued Comment on above: Take 1 tablet by jorge th once daily. Cinnamon Bark (20 sources) End: 04-17-2024 cinnamon bark (CINNAMON ORAL) Take 4,200 mg by mouth. 04/17/2024 Discontinued cinnamon bark (C INNAMON ORAL) Take 4,200 mg by mouth. Active cinnamon bark (C INNAMON ORAL) Take 4,200 mg by mouth. 0 Active cinnamon bark (C INNAMON ORAL) Take 1,500 mg by mouth. 0 Active Comment on above: Take 1,500 mg by jorge th. Take 4,200 mg by jorge th. codeine phosphate 2 mg/ml / guaiFENesin 20 mg/ml oral solution (1 source) Opioid Agonist Start: 04-23-2015 End: 07-01-2022 take 5-10 mL by mouth four times daily as needed for cough codeine-guaiFENesin (ROBITUSSIN AC) 10-100 mg/5 mL syrup Indications: Other acute sinusitis Take 5-10 mL by mouth four times daily as needed for Cough. May cause drowsiness. 120 mL 0 04/23/2015 07/01/2022 Discontinued Comment on above: Take 5-10 mL by mout h four times daily as needed for Cough. May cause drowsiness. COQ10, LIPOSOMAL UBIQUINOL, ORAL (20 sources) End: 01-11-2024 COQ10, LIPOSOMAL UBIQUINOL, ORAL Take 200 mg by mouth. 01/11/2024 Discontinued COQ10, LIPOSOMAL UBIQUINOL, ORAL Take 200 mg by mouth. Active COQ10, LIPOSOMAL UBIQUINOL, ORAL Take 200 mg by mouth. 0 Active Comment on above: Take 200 mg by mouth . cranberry fruit concentrate (5 sources) Start: 03-07-2024 End: 04-05-2024 cranberry fruit concentrate Discontinued 1 {tbl} PO DAILY March 07, 2024 1:00am April 05, 2024 8:44pm Cranberry preparation (20 sources) Non-Standardized Food Allergenic Extract, Non-Standardized Plant Allergenic Extract End: 02-23-2024 CRANBERRY ORAL Take 4,200 mg by mouth. 02/23/2024 Discontinued (Other) CRANBERRY ORAL T nirav 4,200 mg by mouth. Active CRANBERRY ORAL T nirav 4,200 mg by mouth. 0 Active Comment on above: Take 4,200 mg by jorge th. cranberry-B.coagulan-C -Ca phos 480 mg-20 mg- 100million cell tab (3 sources) End: 08-02-2022 cranberry-B.djzewycc-Y-Mw phos 480 mg-20 mg- 100million cell tab Take by mouth. 0 08/02/2022 Discontinued cranberry-B.coag ulan-C-Ca phos 480 mg-20 mg- 100million cell tab Take by mouth. 0 Active Comment on above: Take by mouth. Docusate (20 sources) End: 06-04-2024 docusate sodium (STOOL SOFTE NER ORAL) Take by mouth. 06/04/2024 Discontinued (Course of therapy completed) docusate sodium (STOOL SOFTENER ORAL) Take by mouth. Active docusate sodium 50 mg / sennosides, snf 8.6 mg oral tablet (16 sources) Start: 01-27-2024 End: 05-14-2024 Sennosides-Docusate Sodium (Stimulant Laxative Plus) 8.6-50 mg Tablet Discontinued 2 {tbl} PO DAILY 60 April 05, 2024 1:00am May 14, 2024 2:31pm DULoxetine 20 mg delayed release oral capsule (20 sources) Serotonin and Norepinephrine Reuptake Inhibitor Start: 12-22-2022 End: 10-10-2023 take 1 capsule by mouth once daily DULoxetine (CYMBALTA) 20 mg capsule Indications: Stress and adjustment reaction , Type 2 diabetes mellitus with diabetic polyneuropathy, without long-term current use of insulin (HCC) Take 1 capsule by mouth once daily. 30 capsule 1 12/22/2022 10/10/2023 Discontinued Comment on above: Take 1 capsule by mouth once daily. 0.8 ml enoxaparin sodium 100 mg/ml prefilled syringe (20 sources) Low Molecular Weight Heparin Start: 01-20-2024 End: 04-17-2024 enoxaparin (LOVENOX) 80 mg/0.8 mL Q12H 01/20/2024 04/17/2024 Discontinued Start: 01-20-2024 End: 03-07-2024 Enoxaparin 80 mg/0.8 mL Syri nge Discontinued 70 mg SC Q12H 42 February 03, 2024 12:00am March 07, 2024 10:49pm ezetimibe / Simvastatin (20 sources) HMG-CoA Reductase Inhibitor, Dietary Cholesterol Absorption Inhibitor End: 10-10-2023 ezetimibe 10 mg tab 10 mg, simvastatin 10 mg tab 10 mg Take by mouth once daily. 0 10/10/2023 Discontinued ezetimibe 10 mg tab 10 mg, simvastatin 10 mg tab 10 mg Take by mouth once daily. 0 Active Comment on above: Take by mouth once d aily. ferrous fumarate 325 mg oral tablet (15 sources) End: 04-17-2024 Ferrous Fumarate 325 mg (106 mg iron) tab Take by mouth. 04/17/2024 Discontinued fluticasone propionate 0.05 mg/actuat metered dose nasal spray (20 sources) Corticosteroid Start: 12-31-2023 End: 08-17-2024 Fluticasone Propionate 50 mcg/actuation spray,suspension Discontinued 2 NMA INTRANASAL DAILY as needed for nasal congestion December 31, 2023 12:00am August 17, 2024 10:30am Start: 04-23-2015 End: 07-17-2024 take 2 spray(s) nasal route once daily fluticasone (FLONASE) 50 mcg/actuation nasal spray Indications: Decreased hearing of both ears Use 2 Sprays in each nostril once daily. 1 Each 07/17/2024 Active Comment on above: Use 2 Sprays in each nostril once daily. Food Supplemt, Lactose-Reduced (Ensure Plus High Protein) 0.08 gram-1.5 kcal/mL Liquid (5 sources) Start: 01-27-2024 End: 02-03-2024 Food Supplemt, Lactose-Reduced (Ensure Plus High Protein) 0.08 gram-1.5 kcal/mL Liquid Discontinued 120 mL PO 3 TIMES DAILY WITH MEALS 0 January 27, 2024 12:00am February 03, 2024 2:23pm gabapentin 100 mg oral capsule (20 sources) Anti-epileptic Agent Start: 04-05-2024 End: 07-20-2024 take 1 capsule by mouth three times daily at mealtime Gabapentin 100 mg Capsule Discontinued 100 mg PO 3 TIMES DAILY WITH MEALS 90 April 05, 2024 1:00am July 20, 2024 4:21pm Start: 01-27-2024 End: 10-31-2024 take 1 capsule by mouth twice daily Gabapentin 100 mg capsule Active 100 mg PO TWICE A DAY 0 July 20, 2024 4:14pm Start: 01-27-2024 End: 03-07-2024 take 2 capsules by mouth twice daily at mealtime Gabapentin 100 mg Capsule Discontinued 200 mg PO TWICE DAILY WITH MEALS 0 January 27, 2024 12:00am March 07, 2024 10:50pm guaiFENesin 400 mg / phenylephrine hydrochloride 10 mg oral tablet (20 sources) alpha-1 Adrenergic Agonist End: 02-23-2024 PHENYLephrine-guaiFENesin (MUCUS RELIEF PE) 10-400 mg tab Take by mouth. 02/23/2024 Discontinued Comment on above: Take by mouth. hydroCHLOROthiazide 12.5 mg / losartan potassium 100 mg oral tablet (20 sources) Thiazide Diuretic, Angiotensin 2 Receptor Hillary Start: 08-17-2024 End: 08-20-2024 Losartan-Hydrochlorothiazide 100-12.5 mg tablet Discontinued 1 {tbl} PO DAILY August 17, 2024 12:00am August 20, 2024 9:09am Start: 07-20-2024 End: 07-20-2024 Losartan-Hydrochlorothiazide 100-25 mg tablet Discontinued 1 {tbl} PO TWICE A DAY 0 July 20, 2024 4:15pm July 20, 2024 4:29pm Start: 06-20-2024 End: 08-17-2024 Losartan-Hydrochlorothiazide 100-25 mg tablet Discontinued 1 {tbl} PO daily 0 July 20, 2024 4:28pm August 17, 2024 10:28am Start: 05-14-2024 End: 06-20-2024 Losartan-Hydrochlorothiazide 100-12.5 mg tablet Discontinued 1 {tbl} PO daily May 14, 2024 1:00am June 20, 2024 11:28am Start: 07-01-2022 End: 01-11-2024 Losartan-Hydrochlorothiazide 100-25 mg tablet Discontinued 1 {tbl} PO DAILY September 23, 2023 12:00am January 03, 2024 7:27am Comment on above: Take 1 tablet by jorge th once daily. Lactobac no.41/Bifidobact no.7 (PROBIOTIC-10 ORAL) (20 sources) End: 02-23-2024 Lactobac no.41/Bifidobact no.7 (PROBIOTIC-10 ORAL) Take by mouth. 02/23/2024 Discontinued Lactobac no.41/B ifidobact no.7 (PROBIOTIC-10 ORAL) Take by mouth. Active Lactobac no.41/B ifidobact no.7 (PROBIOTIC-10 ORAL) Take by mouth. 0 Active Comment on above: Take by mouth. Magnesium (20 sources) End: 04-09-2024 Magnesium 200 mg tab Take by mouth. 04/09/2024 Discontinued (Discontinued by Patient) Magnesium 200 mg tab Take by mouth. Active Magnesium 200 mg tab Take by mouth. 0 Active Comment on above: Take by mouth. melatonin 10 mg oral capsule (20 sources) End: 02-23-2024 melatonin 10 mg cap Take by mouth. 02/23/2024 Discontinued Comment on above: Take by mouth. metFORMIN hydrochloride 500 mg oral tablet (20 sources) Biguanide Start: 12-31-2023 End: 12-31-2023 take 1 tablet by mouth twice daily Metformin 500 mg tablet Discontinued 500 mg PO TWICE A DAY December 31, 2023 12:00am December 31, 2023 6:40pm Start: 02-04-2023 End: 11-14-2023 take 1 tablet by mouth twice daily at mealtime metFORMIN (GLUCOPHAGE) 500 mg tablet Take 1 tablet by mouth two times a day with meals. As directed 180 tablet 1 10/06/2023 Active Start: 09-30-2022 End: 02-04-2023 take 1 tablet by mouth once daily at breakfast, then take 0.5 tablet by mouth once daily in the morning metFORMIN ER (GLUCOPHAGE XR) 750 mg 24 hr tablet Take 1 tablet by mouth daily with breakfast. Take 1/2 tablet every morning 0 09/30/2022 12/20/2022 Discontinued Start: 08-02-2022 End: 08-24-2022 take 1 tablet by mouth once daily at breakfast metFORMIN ER (GLUCOPHAGE XR) 750 mg 24 hr tablet Take 1 tablet by mouth daily with breakfast. 90 tablet 3 08/02/2022 08/24/2022 Discontinued (Side Effects) Comment on above: Take 1 tablet by jorge th daily with breakfast. Take 1 tablet by jorge th daily with breakfast. Take 1/2 tablet every morning Take 1 tablet by jorge th two times a day with meals. As directed Miscellaneous Medical Supply (20 sources) Start: 4 End: 5 take 1 dose by mouth twice daily Miscellaneous Medical Supply Take 1 Each by mouth two times a day. [employer] [place] 3+CoQ10 --30 mg of CoQ10 01/11/2024 06/04/2024 Discontinued (Course of therapy completed) Start: 01-11-2024 take 1 dose by mouth twice daily Miscellaneous Medical Supply Take 1 Each by mouth two times a day. [place] [place] 3+CoQ10 --30 mg of CoQ10 01/11/2024 Active Multivitamin capsule (3 sources) End: 08-02-2022 take 1 capsule by mouth once daily Multivitamin capsule Take 1 capsule by mouth once daily. 0 08/02/2022 Discontinued take 1 capsule by mouth once dyana ly Multivitamin capsule Take 1 capsule by mouth once daily. 0 Active Comment on above: Take 1 capsule by mo [facility] once daily. OMEGA-3 FATTY ACIDS/FISH OIL (OMEGA 3 FISH OIL ORAL) (3 sources) End: 08-02-2022 OMEGA-3 FATTY ACIDS/FISH OIL (OMEGA 3 FISH OIL ORAL) Take by mouth. 0 08/02/2022 Discontinued OMEGA-3 FATTY AC IDS/FISH OIL (OMEGA 3 FISH OIL ORAL) Take by mouth. 0 Active Comment on above: Take by mouth. omeprazole 20 mg delayed release oral capsule (20 sources) Proton Pump Inhibitor Start: 3 End: 4 take 1 capsule by mouth once daily Omeprazole 20 mg capsule,delayed release(DR/EC) Discontinued 20 mg PO DAILY September 23, 2023 12:00am March 07, 2024 10:50pm Comment on above: Take 1 capsule by mo [facility] daily before breakfast. 1/2 hr before meal. oxyCODONE hydrochloride 5 mg oral tablet (20 sources) Opioid Agonist Start: 4 End: 5 take 2 tablets by mouth every four hours as needed for pain Oxycodone 5 mg Tablet Discontinued 10 mg PO EVERY 4 HOURS NEEDED as needed for Pain Score 4-10 36 3 March 19, 2024 April 05, 2024 8:45pm Start: 01-27-2024 End: 03-08-2024 take 1 tablet by mouth every four hours as needed for pain oxyCODONE IR (ROXICODONE) 5 mg immediate release tablet Indications: Critical limb ischemia of right lower extremity (HCC) , Pain of foot, unspecified laterality Take 1 tablet by mouth every 4 hours as needed for pain for up to 7 days. 42 tablet 03/01/2024 03/08/2024 Active phenylephrine hydrochloride 10 mg oral tablet (20 sources) alpha-1 Adrenergic Agonist End: 02-23-2024 PHENYLephrine (SUDAFED PE) 10 mg tablet Take 10 mg by mouth. 02/23/2024 Discontinued Comment on above: Take 10 mg by mouth. POTASSIUM-99 ORAL (20 sources) End: 01-11-2024 POTASSIUM-99 ORAL Take by mouth. 01/11/2024 Discontinued POTASSIUM-99 ORA L Take by mouth. Active POTASSIUM-99 ORA L Take by mouth. 0 Active Comment on above: Take by mouth. propylene glycol 6 mg/ml ophthalmic solution (20 sources) End: 04-17-2024 propylene glycoL (SYSTANE BALANCE) 0.6 % drop 1 Drop. 04/17/2024 Discontinued Comment on above: 1 Drop. SELENIUM (SELENIMIN ORAL) (3 sources) End: 08-02-2022 SELENIUM (SELENIMIN ORAL) Take by mouth. 0 08/02/2022 Discontinued SELENIUM (SELENI MIN ORAL) Take by mouth. 0 Active Comment on above: Take by mouth. simvastatin 80 mg oral tablet (20 sources) HMG-CoA Reductase Inhibitor Start: 3 End: 5 take 1 tablet by mouth at bedtime Simvastatin 80 mg tablet Discontinued 80 mg PO AT BEDTIME September 23, 2023 12:00am June 19, 2024 9:38am Comment on above: Take 1 tablet by jorge th daily at bedtime. Take 80 mg by mouth daily at bedtime. sodium chloride 0.111 meq/ml nasal spray (20 sources) End: 4 sodium chloride (AYR SALINE) 0.65 % nasal spray Use 2 Sprays in the nose as needed. 04/17/2024 Discontinued Comment on above: Use 2 Sprays in the nose as needed. SODIUM CHLORIDE/SODIUM BICARB (SINUS WASH NASAL) (18 sources) End: 3 SODIUM CHLORIDE/SODIUM BICARB (SINUS WASH NASAL) Use in the nose. 0 12/21/2022 Discontinued SODIUM CHLORIDE/ SODIUM BICARB (SINUS WASH NASAL) Use in the nose. 0 Active Comment on above: Use in the nose. spironolactone 25 mg oral tablet (20 sources) Aldosterone Antagonist Start: 02-23-20 End: 04-17-20 take 0.5 tablet by mouth once daily spironolactone (ALDACTONE) 25 mg tablet Take 0.5 tablets by mouth once daily. 45 tablet 3 02/23/2024 04/17/2024 Discontinued Start: 01-03-2024 End: 04-05-2024 Spironolactone 25 mg tablet Discontinued 12.5 mg PO DAILY January 03, 2024 12:00am April 05, 2024 8:46pm Hold for serum potassium more than 5.0 traMADol hydrochloride 50 mg oral tablet (20 sources) Opioid Agonist Start: 02-03-2024 End: 04-17-2024 take 1 tablet by mouth every eight hours as needed for pain Tramadol 50 mg Tablet Discontinued 50 mg PO EVERY 8 HOURS NEEDED as needed for PAIN 1-3 19 11February 03, 2024 12:00am March 19, 2024 4:39pm UBIDECARENONE/VITAMIN E MIXED (COQ10 SG 100 ORAL) (18 sources) End: 12-21-2022 UBIDECARENONE/VITAM IN E MIXED (COQ10 SG 100 ORAL) Take by mouth. 0 12/21/2022 Discontinued UBIDECARENONE/ TAMIN E MIXED (COQ10 SG 100 ORAL) Take by mouth. 0 Active Comment on above: Take by mouth. vancomycin 125 mg oral capsule (5 sources) Glycopeptide Antibacterial Start: 5 End: 5 take 1 capsule by mouth every six hours Vancomycin 125 mg capsule Discontinued 125 mg PO EVERY 6 HOURS 40 June 20, 2024 1:00am June 29, 2024 1:00am June 30, 2024 1:23am VITAMIN A/VIT B COMP/VITAMIN E (VITAMIN B COMPLEX-VIT A-VIT E ORAL) (8 sources) End: VITAMIN A/VIT B COMP/VITAMIN E (VITAMIN B COMPLEX-VIT A-VIT E ORAL) Take by mouth. 0 08/31/2022 Discontinued VITAMIN A/VIT B COMP/VITAMIN E (VITAMIN B COMPLEX-VIT A-VIT E ORAL) Take by mouth. 0 Active Comment on above: Take by mouth. vitamin b12 1 mg oral tablet (3 sources) Vitamin B12 End: 08-02-2022 take 1 tablet by mouth once daily cyanocobalamin (VITAMIN B-12) 1,000 mcg tab Take 1,000 mcg by mouth once daily. 0 08/02/2022 Discontinued Comment on above: Take 1,[address] [facility] once daily. vitamin E mixed/tocotrienol (VITAMIN E COMPLEX ORAL) (20 sources) End: 02-23-2024 vitamin E mixed/tocotrienol (VITAMIN E COMPLEX ORAL) Take 180 mg by mouth. 02/23/2024 Discontinued vitamin E mixed/ tocotrienol (VITAMIN E COMPLEX ORAL) Take 180 mg by mouth. Active vitamin E mixed/ tocotrienol (VITAMIN E COMPLEX ORAL) Take 180 mg by mouth. 0 Active Comment on above: Take 180 mg by mouth . Zinc (20 sources) End: 02-23-2024 Zinc 50 mg tab Take 25 mg by mouth. 02/23/2024 Discontinued Zinc 50 mg tab T nirav 25 mg by mouth. Active Zinc 50 mg tab T nirav 25 mg by mouth. 0 Active Comment on above: Take 25 mg by mouth. Problems Active Problems Problem Classification Problem Date Documented Da te Episodic/Chronic Abdominal pain (5 sources) Epigastric pain; Translations: [Epigastric pain] 10-01-2023 Episodic Adjustment disorders (1 source) Stress and adjustment reaction; Translations: [Adjustment disorder with other symptoms] 12-22-2022 Chronic Anxiety disorders (5 sources) Anxiety; Translations: [Anxiety disorder, unspecified] 01-05-2024 Chronic Cardiac dysrhythmias (20 sources) Atrial fibrillation; Translations: [Unspecified atrial fibrillation] Onset: 4 10-10-2023 Chronic Chronic kidney disease (9 sources) Chronic kidney disease stage 3B ; Translations: [Stage 3b chronic kidney disease (HCC)] Onset: 5 07-17-2024 Chronic Chronic ulcer of skin (9 sources) Pressure ulcer of right heel, stage 2; Translations: [Pressure ulcer, heel] Onset: 4 02-23-2024 Chronic Coagulation and hemorrhagic disorders (20 sources) Factor V deficiency; Translations: [Hereditary deficiency of other clotting factors] Onset: 3 Chronic Congestive heart failure; nonhypertensive (20 sources) Acute exacerbation of chronic congestive heart failure; Translations: [Heart failure, unspecified] Onset: 4 01-11-2024 Chronic Deficiency and other anemia (7 sources) Anemia; Translations: [Anemia, unspecified] 04-02-2024 Episodic Deficiency and other anemia (5 sources) Iron deficiency anemia; Translations: [Iron deficiency anemia, unspecified] 01-28-2024 Episodic Diabetes mellitus with complications (20 sources) Type 2 diabetes mellitus; Translations: [Type 2 diabetes mellitus with hyperglycemia] Onset: 3 Chronic Diabetes mellitus without complication (8 sources) Diabetes mellitus; Translations: [Type 2 diabetes mellitus without complications] Onset: 4 03-19-2024 Chronic Disorders of lipid metabolism (20 sources) Hyperlipidemia; Translations: [Hyperlipidemia, unspecified] Onset: 3 Chronic Esophageal disorders (14 sources) Gastroesophageal reflux disease; Translations: [Gastro-esophageal reflux disease without esophagitis] Onset: 4 03-19-2024 Chronic Esophageal disorders (5 sources) Esophageal disorders Essential hypertension (20 sources) Essential hypertension; Translations: [Essential (primary) hypertension] Onset: 3 Chronic Fluid and electrolyte disorders (11 sources) Hyponatremia; Translations: [Hypo-osmolality and hyponatremia] Onset: 4 10-11-2023 Episodic Gangrene (8 sources) Atherosclerosis of arteries of the extremities; Translations: [Atherosclerosis of [place] arteries of extremities with gangrene, unspecified extremity] Onset: 4 04-12-2024 Chronic Gastroduodenal ulcer (except hemorrhage) (15 sources) Ulcer of duodenum; Translations: [Duodenal ulcer, unspecified as acute or chronic, without hemorrhage or perforation] Onset: 5 04-17-2024 Chronic Gastroduodenal ulcer (except hemorrhage) (1 source) Acute gastric ulcer; Translations: [Acute gastric ulcer without hemorrhage or perforation] 04-17-2024 Episodic Heart valve disorders (16 sources) Aortic valve disorder; Translations: [Nonrheumatic aortic valve disorder, unspecified] Onset: 5 04-23-2024 Chronic Infective arthritis and osteomyelitis (except that caused by tuberculosis or sexually transmitted disease) (10 sources) Acute osteomyelitis of ankle and/or foot; Translations: [Other acute osteomyelitis, right ankle and foot] Onset: 4 04-12-2024 Chronic Occlusion or stenosis of precerebral arteries (20 sources) Carotid atherosclerosis; Translations: [Occlusion and stenosis of unspecified carotid artery] Onset: 3 Chronic Osteoarthritis (6 sources) Osteoarthritis; Translations: [Unspecified osteoarthritis, unspecified site] Onset: 4 03-08-2024 Chronic Other aftercare (13 sources) Long-term current use of anticoagulant; Translations: [snf (current) use of anticoagulants] 06-20-2024 Episodic Other aftercare (5 sources) Surgical follow-up; Translations: [Encounter for surgical aftercare following surgery on the circulatory system] 05-14-2024 Episodic Other aftercare (1 source) Encounter for surgical aftercare following surgery on the circulatory system; Translations: [Encounter for surgical aftercare following surgery on the circulatory system] Onset: 5 Episodic Other bone disease and musculoskeletal deformities (10 sources) History of amputation of right foot; Translations: [Acquired absence of right foot] Onset: 5 04-17-2024 Chronic Other circulatory disease (1 source) History of arterial bypass of lower limb artery; Translations: [Presence of other vascular implants and grafts] 04-17-2024 Chronic Other circulatory disease (10 sources) Disorder of carotid artery; Translations: [Disorder of arteries and arterioles, unspecified] 06-12-2024 Chronic Comment on above: s/p R CEA 2001 Other circulatory disease (1 source) Disorder of arteries and arterioles, unspecified; Translations: [Disorder of arteries and arterioles, unspecified] Onset: 5 Chronic Other circulatory disease (2 sources) History of transient ischemic attack; Translations: [Personal history of transient ischemic attack (TIA), and cerebral infarction without residual deficits] Episodic Other circulatory disease (5 sources) Elevated blood-pressure reading without diagnosis of hypertension; Translations: [Elevated blood-pressure reading, without diagnosis of hypertension] 01-27-2024 Episodic Other connective tissue disease (1 source) Cramp in lower limb; Translations: [Cramp and spasm] 01-11-2024 Episodic Other connective tissue disease (6 sources) Foot pain; Translations: [Pain in unspecified foot] 03-01-2024 Episodic Other connective tissue disease (7 sources) Spasm; Translations: [Other muscle spasm] 03-19-2024 Episodic Other connective tissue disease (5 sources) Pain in lower limb; Translations: [Pain in right leg] 01-21-2024 Episodic Other connective tissue disease (7 sources) Neuropathic pain; Translations: [Neuralgia and neuritis, unspecified] 01-28-2024 Episodic Comment on above: Right foot and ankle Other connective tissue disease (1 source) Pain in right lower leg; Translations: [Pain in right lower leg] Onset: 5 Episodic Other connective tissue disease (1 source) Pain in left lower leg; Translations: [Pain in left lower leg] Onset: 5 Episodic Other diseases of bladder and urethra (8 sources) Overactive bladder; Translations: [Overactive bladder] Chronic Other diseases of bladder and urethra (1 source) Overactive bladder; Translations: [Overactive bladder] Onset: 4 Chronic Other ear and sense organ disorders (2 sources) Decreased hearing ; Translations: [Unspecified hearing loss, bilateral] 07-17-2024 Chronic Other gastrointestinal disorders (1 source) Irritable bowel syndrome without diarrhea; Translations: [Irritable bowel syndrome, unspecified] Onset: 5 Chronic Other gastrointestinal disorders (1 source) Irritable bowel syndrome with diarrhea; Translations: [Irritable bowel syndrome with diarrhea] Onset: 5 Chronic Other gastrointestinal disorders (15 sources) Diarrhea; Translations: [Diarrhea, unspecified] 06-12-2024 Episodic Other gastrointestinal disorders (1 source) Diarrhea, unspecified; Translations: [Diarrhea, unspecified] Onset: 5 Episodic Other hematologic conditions (1 source) History of anemia; Translations: [Personal history of diseases of the blood and blood-forming organs and certain disorders involving the immune mechanism] 07-17-2024 Episodic Other hematologic conditions (1 source) Personal history of diseases of the blood and blood-forming organs and certain disorders involving the immune mechanism; Translations: [History of anemia] Onset: Episodic Other inflammatory condition of skin (1 source) Erythema; Translations: [Erythematous condition, unspecified] 01-11-2024 Episodic Other injuries and conditions due to external causes (1 source) Injury of toe of right foot; Translations: [Unspecified injury of right foot, subsequent encounter] Episodic Other liver diseases (20 sources) Steatosis of liver; Translations: [Fatty (change of) liver, not elsewhere classified] Onset: 3 Chronic Other liver diseases (7 sources) Enzyme level - finding; Translations: [Transaminitis] 11-14-2023 Episodic Other liver diseases (2 sources) ALT (SGPT) level raised; Translations: [Elevated alanine aminotransferase (ALT) level] 11-18-2023 Episodic Other lower respiratory disease (1 source) Chronic cough; Translations: [Chronic cough] 02-04-2023 Episodic Other lower respiratory disease (4 sources) Multiple nodules of lung; Translations: [Other nonspecific abnormal finding of lung field] 11-22-2022 Episodic Other lower respiratory disease (2 sources) Cough; Translations: [Acute cough] 12-11-2023 Episodic Other lower respiratory disease (1 source) Hypoxia; Translations: [Hypoxemia] 12-31-2023 Episodic Other nervous system disorders (1 source) Neuropathy; Translations: [Polyneuropathy, unspecified] Chronic Other nervous system disorders (1 source) Numbness of upper limb; Translations: [Anesthesia of skin] 09-23-2023 Episodic Other nutritional; endocrine; and metabolic disorders (20 sources) High density lipoprotein above reference range; 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] Onset: 3 03-15-2023 Chronic Other nutritional; endocrine; and metabolic disorders (5 sources) Body mass index 25-29 - overweight; Translations: [Overweight] 03-08-2024 Episodic Other screening for suspected conditions (not mental disorders or infectious disease) (11 sources) Prolonged QT interval; Translations: [Abnormal electrocardiogram [ECG] [EKG]] Onset: 4 01-28-2024 Episodic Other skin disorders (2 sources) Foot callus; Translations: [Corns and callosities] Episodic Other skin disorders (1 source) Lesion of face; Translations: [Disorder of the skin and subcutaneous tissue, unspecified] 06-07-2023 Episodic Other upper respiratory disease (7 sources) Allergic rhinitis; Translations: [Allergic rhinitis, unspecified] 03-19-2024 Chronic Other upper respiratory disease (1 source) Allergic rhinitis, unspecified; Translations: [Allergic rhinitis, unspecified] Onset: 4 Chronic Other upper respiratory infections (3 sources) Acute sinusitis; Translations: [Other acute sinusitis] 06-07-2023 Episodic Yuridia-; endo-; and myocarditis; cardiomyopathy (except that caused by tuberculosis or sexually transmitted disease) (6 sources) Dilated cardiomyopathy; Translations: [Dilated cardiomyopathy] Onset: 4 01-27-2024 Chronic Peripheral and visceral atherosclerosis (20 sources) Peripheral vascular disease; Translations: [Peripheral vascular disease, unspecified] Onset: 4 Resolved: 5 06-07-2023 Chronic Comment on above: 01/2024 fem-pop bypas s with PTFE03/2024 revision jump graft from fem-pop bypass to distal PT with reverse GSV; 2 compartment fasciotomy Pneumonia (except that caused by tuberculosis or sexually transmitted disease) (1 source) Bacterial pneumonia; Translations: [Unspecified bacterial pneumonia] 12-12-2023 Episodic Residual codes; unclassified (1 source) Hypersomnia; Translations: [Hypersomnia, unspecified] Chronic Residual codes; unclassified (1 source) Hypoxia; 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 Lily Rojas 01/19/[address] Lily Rodgers LEG Thyroid disorders (20 sources) Subclinical hypothyroidism; Translations: [Other specified hypothyroidism] Onset: 3 Chronic Unclassified (1 source) Acute cough; Translations: [Acute cough] Onset: 4 Unclassified (1 source) Elevated alanine aminotransferase (ALT) level; Translations: [Elevated alanine aminotransferase (ALT) level] Onset: 4 Unclassified (1 source) Transaminitis; Translations: [Transaminitis] Onset: 4 Unclassified (1 source) Chronic atrial fibrillation, unspecified; Translations: [Chronic atrial fibrillation, unspecified] Onset: Past or Other Problems Problem Classification Problem Date Documented Date Episodic/Chronic Deficiency and other anemia (1 source) Iron deficiency anemia, unspecified; Translations: [Iron deficiency anemia, unspecified] Onset: 05-01-2024 Episodic Deficiency and other anemia (1 source) Anemia, unspecified; Translations: [Anemia, unspecified] Onset: 04-18-2024 Episodic Gangrene (15 sources) Gangrenous disorder; Translations: [Gangrene, not elsewhere classified] Onset: 02-23-2024 02-23-2024 Episodic Heart valve disorders (20 sources) Heart murmur; Translations: [Cardiac murmur, unspecified] Onset: 07-01-2022 Episodic Immunizations and screening for infectious disease (10 sources) Patient encounter status; Translations: [Encounter for immunization] Onset: 11-14-2023 Episodic Malaise and fatigue (15 sources) Asthenia; Translations: [Weakness] Onset: 02-23-2024 02-23-2024 Episodic Nonspecific chest pain (4 sources) Chest pain; Translations: [Chest pain, unspecified] Onset: 11-14-2023 11-14-2023 Episodic Other aftercare (1 source) Other long term care administrator (current) drug therapy; Translations: [Encounter for long-term current use of medication] Onset: 12-27-2023 Episodic Other aftercare (1 source) snf (current) use of anticoagulants; Translations: [snf (current) use of anticoagulants] Onset: 06-20-2024 Episodic Other aftercare (2 sources) Encounter for orthopedic aftercare following surgical amputation; Translations: [Encounter for orthopedic aftercare following surgical amputation] Onset: 04-18-2024 Episodic Other circulatory disease (1 source) Other disorder of circulatory system; Translations: [Other disorder of circulatory system] Onset: 02-22-2024 Episodic Other connective tissue disease (1 source) Cramp and spasm; Translations: [Leg cramp] Onset: 01-11-2024 Episodic Other connective tissue disease (1 source) Other muscle spasm; Translations: [Other muscle spasm] Onset: 04-18-2024 Episodic Other connective tissue disease (1 source) Neuralgia and neuritis, unspecified; Translations: [Neuralgia and neuritis, unspecified] Onset: 04-18-2024 Episodic Other connective tissue disease (1 source) Pain in right foot; Translations: [Pain in right foot] Onset: 02-22-2024 Episodic Other connective tissue disease (1 source) Pain in right leg; Translations: [Pain in right leg] Onset: 02-13-2024 Episodic Other inflammatory condition of skin (1 source) Erythematous condition, unspecified; Translations: [Dependent rubor] Onset: 01-11-2024 Episodic Other nutritional; endocrine; and metabolic disorders (1 source) Overweight; Translations: [Overweight] Onset: 04-03-2024 Episodic Other skin disorders (1 source) Corns and callosities; Translations: [Callus of foot] Onset: 01-11-2024 Episodic Residual codes; unclassified (3 sources) Other specified postprocedural states; Translations: [History of femoropopliteal bypass] Onset: 02-14-2024 Episodic Respiratory failure; insufficiency; arrest (adult) (6 sources) Acute hypoxemic respiratory failure; Translations: [Acute respiratory failure with hypoxia] Onset: 01-03-2024 01-11-2024 Episodic Skin and subcutaneous tissue infections (12 sources) Cellulitis; Translations: [Cellulitis, unspecified] Onset: 02-05-2024 03-21-2024 Episodic Spondylosis; intervertebral disc disorders; other back problems (1 source) Thoracic back pain; Translations: [Dorsalgia, unspecified] 10-10-2023 Episodic Superficial injury; contusion (8 sources) Hematoma of lower leg; Translations: [Contusion of unspecified lower leg, initial encounter] Onset: 04-18-2024 03-21-2024 Episodic Results Test Name Value Interpretation Reference Range Facility Venous Duplex US - Kwadwo Extre mon 10-02-2024 Venous Duplex US - Kwadwo Extrem Normal [facility] CTA Head AND Neck W/ Contras ton 10-01-2024 CTA Head AND Neck W/ Contrast Normal [facility] Creatinine measurement at be dsideOrdered By: Laura Crowell on 10-01-2024 Creatinine [Mass/Vol] 1.2 mg/dL High 0.55-1.02 [facility] Comment on above: Performed By: #### L 9100.0200 ####[facility] [address] [place], [place], [id number] EGFROrdered By: Laura Crowell on 10-01-2024 GFR/1.73 sq M.predicted among non-blacks MDRD (S/P/Bld) [Vol rate/Area] 44.0000 mL/min/{1.73_m2} Low >60 [facility] Comment on above: Performed By: #### L 9100.0200 ####[facility] [address] [place], [address] Anion gap in Serum or Plasma Ordered By: Dominick Harrell on 08-28-2024 Anion gap [Moles/Vol] 14 mmol/L 5-15 [facility] Ankle Brachial Indexon 08-28 Ankle Brachial Index Normal [facility] BUN/creatinine ratioOrdered By: Dominick Harrell on 08-28-2024 Urea nitrogen/Creatinine [Mass ratio] 22.4 mg/mg High 10-20 [facility] Basic Metabolic Profile (BMP )on 08-28-2024 BUN/CRE 22.4 RATIO High 10-20 [facility] Comment on above: Performed By: #### L 500.2500 ####[facility] [address] [place], [address] Calcium [Mass/Vol] 9.8 mg/dL Normal 7.6-11.0 [facility] Comment on above: Performed By: #### L 500.2500 ####[facility] [address] [place], [address] Chloride [Moles/Vol] 102 mmol/L Normal 98-108 [facility] Comment on above: Performed By: #### L 500.2500 ####[facility] [address] [place], [address] CO2 [Moles/Vol] 21.9 mmol/L Normal 21.0-32.0 [facility] Comment on above: Performed By: #### L 500.2500 ####[facility] [address] [place], [address] Creatinine [Mass/Vol] 1.17 mg/dL Normal 0.70-1.20 [facility] Comment on above: Performed By: #### L 500.2500 ####[facility] [address] [place], [address] GAP 14 Normal 5-15 [facility] Comment on above: Performed By: #### L 500.2500 ####[facility] [address] [place], [address] GFR/1.73 sq M.predicted among non-blacks MDRD (S/P/Bld) [Vol rate/Area] 46 mL/min/{1.73_m2} Low >60 [facility] Comment on above: Result Comment: mL/m in/1.73m2 CKD-EPI Creatinine Equation (2020) Performed By: #### L 500.2500 ####[facility] [address] [place], [address] Glucose [Mass/Vol] 140 mg/dL High 70-99 [facility] Comment on above: Performed By: #### L 500.2500 ####[facility] [address] [place], [address] Potassium [Moles/Vol] 3.9 mmol/L Normal 3.3-5.1 [facility] Comment on above: Performed By: #### L 500.2500 ####[facility] [address] [place], [address] Sodium [Moles/Vol] 137 mmol/L Normal 133-145 [facility] Comment on above: Performed By: #### L 500.2500 ####[facility] [address] [place], [place], [address] Urea nitrogen [Mass/Vol] 26 mg/dL High 08-18 [facility] Comment on above: Performed By: #### L 500.2500 ####[facility] [address] [place], [address] Carbon dioxide, total [Moles /volume] in Central venous bloodOrdered By: Dominick Harrell on 08-28-2024 CO2 [Moles/Vol] 21.9 mmol/L 21.0-32.0 [facility] Chloride assayOrdered By: Cary Harrell on 08-28-2024 Chloride [Moles/Vol] 102 mmol/L 98-108 [facility] Glomerular filtration rate ( GFR) estimation/1.73 sq m using serum, plasma, or whole bOrdered By: Dominick Harrell on 08-28-2024 GFR/1.73 sq M.predicted among non-blacks MDRD (S/P/Bld) [Vol rate/Area] 46 mL/min/{1.73_m2} Low >60 [facility] Comment on above: mL/min/1.73m2 CKD-EP I Creatinine Equation (2020) Potassium measurement (mass/ volume)Ordered By: Dominick Harrell on 08-28-2024 Potassium (Unsp spec) [Mass/Vol] 3.9 mmol/L 3.3-5.1 [facility] Serum creatinine measurement (mass/volume)Ordered By: Dominick Harrell on 08-28-2024 Creatinine [Mass/Vol] 1.17 mg/dL 0.70-1.20 [facility] Serum glucose measurement (m ass/volume)Ordered By: Dominick Harrell on 08-28-2024 Glucose [Mass/Vol] 140 mg/dL High 70-99 [facility] Serum or plasma calcium walker urement (mass/volume)Ordered By: Dominick Harrell on 08-28-2024 Calcium [Mass/Vol] 9.8 mg/dL 7.6-11.0 [facility] Serum or plasma urea nitroge n measurement (mass/volume)Ordered By: Dominick Harrell on 08-28-2024 Urea nitrogen [Mass/Vol] 26 mg/dL High 08-18 [facility] Sodium levelOrdered By: Dominick Harrell on 08-28-2024 Sodium [Moles/Vol] 137 mmol/L 133-145 [facility] US Art Duplex Unilat Lower E xton 08-28-2024 US Art Duplex Unilat Lower Ext Normal [facility] EGD Reporton 08-22-2024 EGD Report Normal [facility] International normalized rat io (INR) calculationOrdered By: Robb Giron on 08-22-2024 INR Coag (Bld) [Relative time] 1.2 {INR} [facility] MR/POSTOP.ANEon 08-22-2024 MR/POSTOP.ANE Normal [facility] MR/KRYUNCQB3by 08-22-2024 MR/POSTOPAN2 Normal [facility] Prothrombin Time w/INRon INR Coag (PPP) [Relative time] 1.2 {INR} Normal [facility] Comment on above: Performed By: #### L 300.3900 ####[facility] [address] [place], [place], [id number] PT Coag (PPP) [Time] 15.5 s High 11.7-14.9 [facility] Comment on above: Performed By: #### L 300.3900 ####[facility] [address] [place], [place], [id number] Prothrombin timeOrdered By: Robb Giron on 08-22-2024 PT Coag (PPP) [Time] 15.5 s High 11.7-14.9 [facility] Protime w/INR Fingerstickon 08-22-2024 INR Coag (PPP) [Relative time] 1.4 {INR} Normal [facility] Comment on above: Result Comment: Crit ical Value > 4.0 Performed By: #### L 9200.0000 ####[facility] [address] [place], [place], [id number] Protime Coagsen 16.1 SEC High 11.7-14.9 [facility] Comment on above: Performed By: #### L 9200.0000 ####[facility] [address] [place], [address] Surgery Specimen Level Aj 08-22-2024 Surgery Specimen Level IV Normal [facility] Comment on above: Performed By: #### P SUIV ####[facility] [address] [place], [address] Whole blood prothrombin time Ordered By: Robb Giron on 08-22-2024 PT Coag (Bld) [Time] 16.1 s High 11.7-14.9 [facility] MR/PAT.ANEon 08-17-2024 MR/PAT.ANE Normal [facility] Anion gap in Serum or Plasma Ordered By: Dominick Harerll on 08-15-2024 Anion gap [Moles/Vol] 13 mmol/L 5-15 [facility] BUN/creatinine ratioOrdered By: Dominick Harrell on 08-15-2024 Urea nitrogen/Creatinine [Mass ratio] 29.1 mg/mg High 10-20 [facility] Basic Metabolic Profile (BMP )on 08-15-2024 BUN/CRE 29.1 RATIO High 10-20 [facility] Comment on above: Performed By: #### L 500.2500 ####[facility] [address] [place], [address] Calcium [Mass/Vol] 9.9 mg/dL Normal 7.6-11.0 [facility] Comment on above: Performed By: #### L 500.2500 ####[facility] [address] [place], [address] Chloride [Moles/Vol] 99 mmol/L Normal 98-108 [facility] Comment on above: Performed By: #### L 500.2500 ####[facility] [address] [place], [address] CO2 [Moles/Vol] 25.0 mmol/L Normal 21.0-32.0 [facility] Comment on above: Performed By: #### L 500.2500 ####[facility] [address] [place], [address] Creatinine [Mass/Vol] 1.16 mg/dL Normal 0.70-1.20 [facility] Comment on above: Performed By: #### L 500.2500 ####[facility] [address] [place], [address] GAP 13 Normal 5-15 [facility] Comment on above: Performed By: #### L 500.2500 ####[facility] [address] [place], [address] GFR/1.73 sq M.predicted among non-blacks MDRD (S/P/Bld) [Vol rate/Area] 46 mL/min/{1.73_m2} Low >60 [facility] Comment on above: Result Comment: mL/m in/1.73m2 CKD-EPI Creatinine Equation (2020) Performed By: #### L 500.2500 ####[facility] [address] [place], [address] Glucose [Mass/Vol] 148 mg/dL High 70-99 [facility] Comment on above: Performed By: #### L 500.2500 ####[facility] [address] [place], [address] Potassium [Moles/Vol] 3.4 mmol/L Normal 3.3-5.1 [facility] Comment on above: Result Comment: Hemo lysis present, Results??could be affected.?? Performed By: #### L 500.2500 ####[facility] [address] [place], [address] Sodium [Moles/Vol] 137 mmol/L Normal 133-145 [facility] Comment on above: Performed By: #### L 500.2500 ####[facility] [address] [place], [address] Urea nitrogen [Mass/Vol] 34 mg/dL High 4-19 [facility] Comment on above: Performed By: #### L 500.2500 ####[facility] [address] [place], [address] Carbon dioxide, total [Moles /volume] in Central venous bloodOrdered By: Dominick Harrell on 08-15-2024 CO2 [Moles/Vol] 25.0 mmol/L 21.0-32.0 [facility] Chloride assayOrdered By: Cary Harrell on 08-15-2024 Chloride [Moles/Vol] 99 mmol/L 98-108 [facility] GFR/1.73 sq M.predicted rylie g non-blacks MDRD (S/P/Bld) [Vol rate/Area]Ordered By: Dominick Harrell on 08-15-2024 Estimated GFR (MDRD) Non-Af Amer 46 Low >60 [facility] Comment on above: mL/min/1.73m2 CKD-EP I Creatinine Equation (2020) Glomerular filtration rate ( GFR) estimation/1.73 sq m using serum, plasma, or whole bOrdered By: Dominick Harrell on 08-15-2024 GFR/1.73 sq M.predicted among non-blacks MDRD (S/P/Bld) [Vol rate/Area] 46 mL/min/{1.73_m2} Low >60 [facility] Comment on above: mL/min/1.73m2 CKD-EP I Creatinine Equation (2020) Potassium (Unsp spec) [Mass/ Vol]Ordered By: Dominick Harrell on 08-15-2024 Potassium [Moles/Vol] 3.4 mmol/L 3.3-5.1 [facility] Comment on above: Hemolysis present, R esults could be affected. Potassium measurement (mass/ volume)Ordered By: Dominick Harrell on 08-15-2024 Potassium (Unsp spec) [Mass/Vol] 3.4 mmol/L 3.3-5.1 [facility] Comment on above: Hemolysis present, R esults could be affected. Serum creatinine measurement (mass/volume)Ordered By: Dominick Harrell on 08-15-2024 Creatinine [Mass/Vol] 1.16 mg/dL 0.70-1.20 [facility] Serum glucose measurement (m ass/volume)Ordered By: Dominick Harrell on 08-15-2024 Glucose [Mass/Vol] 148 mg/dL High 70-99 [facility] Serum or plasma calcium walker urement (mass/volume)Ordered By: Dominick Harrell on 08-15-2024 Calcium [Mass/Vol] 9.9 mg/dL 7.6-11.0 [facility] Serum or plasma urea nitroge n measurement (mass/volume)Ordered By: Dominick Harrell on 08-15-2024 Urea nitrogen [Mass/Vol] 34 mg/dL High 4-19 [facility] Sodium levelOrdered By: Dominick Harrell on 08-15-2024 Sodium [Moles/Vol] 137 mmol/L 133-145 [facility] CNPNon 07-31-2024 CNPN Normal [facility] Anion gap in Serum or Plasma Ordered By: Dominick Harrell on 07-25-2024 Anion gap [Moles/Vol] 12 mmol/L 5-15 [facility] BUN/creatinine ratioOrdered By: Dominick Harrell on 07-25-2024 Urea nitrogen/Creatinine [Mass ratio] 23.1 mg/mg High 10-20 [facility] Basic Metabolic Profile (BMP )on 07-25-2024 BUN/CRE 23.1 RATIO High 02-18 [facility] Comment on above: Performed By: #### L 500.2500 ####[facility] [address] [place], [address] Calcium [Mass/Vol] 9.7 mg/dL Normal 7.6-11.0 [facility] Comment on above: Performed By: #### L 500.2500 ####[facility] [address] [facility] [place], [address] Chloride [Moles/Vol] 102 mmol/L Normal 98-108 [facility] Comment on above: Performed By: #### L 500.2500 ####[facility] [address] [place], [address] CO2 [Moles/Vol] 23.3 mmol/L Normal 21.0-32.0 [facility] Comment on above: Performed By: #### L 500.2500 ####[facility] [address] [place], [address] Creatinine [Mass/Vol] 1.05 mg/dL Normal 0.70-1.20 [facility] Comment on above: Performed By: #### L 500.2500 ####[facility] [address] [place], [address] GAP 12 Normal 5-15 [facility] Comment on above: Performed By: #### L 500.2500 ####[facility] [address] [place], [address] GFR/1.73 sq M.predicted among non-blacks MDRD (S/P/Bld) [Vol rate/Area] 52 mL/min/{1.73_m2} Low >60 [facility] Comment on above: Result Comment: mL/m in/1.73m2 CKD-EPI Creatinine Equation (2020) Performed By: #### L 500.2500 ####[facility] [address] [place], [address] Glucose [Mass/Vol] 138 mg/dL High 70-99 [facility] Comment on above: Performed By: #### L 500.2500 ####[facility] [address] [place], [address] Potassium [Moles/Vol] 4.1 mmol/L Normal 3.3-5.1 [facility] Comment on above: Performed By: #### L 500.2500 ####[facility] [address] [place], [address] Sodium [Moles/Vol] 138 mmol/L Normal 133-145 [facility] Comment on above: Performed By: #### L 500.2500 ####[facility] [address] [place], [address] Urea nitrogen [Mass/Vol] 24 mg/dL High 4-19 [facility] Comment on above: Performed By: #### L 500.2500 ####[facility] [address] [place], [place], [address] Carbon dioxide, total [Moles /volume] in Central venous bloodOrdered By: Dominick Harrell on 07-25-2024 CO2 [Moles/Vol] 23.3 mmol/L 21.0-32.0 [facility] Chloride assayOrdered By: Cary Harrell on 07-25-2024 Chloride [Moles/Vol] 102 mmol/L 98-108 [facility] GFR/1.73 sq M.predicted rylie g non-blacks MDRD (S/P/Bld) [Vol rate/Area]Ordered By: Dominick Harrell on 07-25-2024 Estimated GFR (MDRD) Non-Af Amer 52 Low >60 [facility] Comment on above: mL/min/1.73m2 CKD-EP I Creatinine Equation (2020) Glomerular filtration rate ( GFR) estimation/1.73 sq m using serum, plasma, or whole bOrdered By: Dominick Harrell on 07-25-2024 GFR/1.73 sq M.predicted among non-blacks MDRD (S/P/Bld) [Vol rate/Area] 52 mL/min/{1.73_m2} Low >60 [facility] Comment on above: mL/min/1.73m2 CKD-EP I Creatinine Equation (2020) Potassium (Unsp spec) [Mass/ Vol]Ordered By: Dominick Harrell on 07-25-2024 Potassium [Moles/Vol] 4.1 mmol/L 3.3-5.1 [facility] Potassium measurement (mass/ volume)Ordered By: Dominick Harrell on 07-25-2024 Potassium (Unsp spec) [Mass/Vol] 4.1 mmol/L 3.3-5.1 [facility] Serum creatinine measurement (mass/volume)Ordered By: Dominick Harrell on 07-25-2024 Creatinine [Mass/Vol] 1.05 mg/dL 0.70-1.20 [facility] Serum glucose measurement (m ass/volume)Ordered By: Dominick Harrell on 07-25-2024 Glucose [Mass/Vol] 138 mg/dL High 70-99 [facility] Serum or plasma calcium walker urement (mass/volume)Ordered By: Dominick Harrell on 07-25-2024 Calcium [Mass/Vol] 9.7 mg/dL 7.6-11.0 [facility] Serum or plasma urea nitroge n measurement (mass/volume)Ordered By: Dominick Harrell on 07-25-2024 Urea nitrogen [Mass/Vol] 24 mg/dL High 4-19 [facility] Sodium levelOrdered By: Dominick Harrell on 07-25-2024 Sodium [Moles/Vol] 138 mmol/L 133-145 [facility] Basic metabolic 2000 panelon 07-17-2024 Anion gap [Moles/Vol] 12 mmol/L Normal 8-15 [facility] Comment on above: Order Comment: Speci men Type: BLOOD SPECIMENOrdering Facility: [facility] Address: [address] [place] [address] Performed By: #### 2 4321-2, TSHRF ####[facility] LABCLIA [id number] [place] [address] [place] Calcium [Mass/Vol] 9.9 mg/dL Normal 8.5-10.2 [facility] Comment on above: Order Comment: Speci men Type: BLOOD SPECIMENOrdering Facility: [facility] Address: [address] [place] [address] Performed By: #### 2 4321-2, TSHRF ####[facility] LABCLIA [id number] [place] [address] [place] Chloride [Moles/Vol] 102 mmol/L Normal 98-107 [facility] Comment on above: Order Comment: Speci men Type: BLOOD SPECIMENOrdering Facility: [facility] Address: [address] [place] [address] Performed By: #### 2 4321-2, TSHRF ####[facility] LABCLIA [id number] [place] [address] [place] CO2 [Moles/Vol] 24 mmol/L Normal 22-30 [facility] Comment on above: Order Comment: Speci men Type: BLOOD SPECIMENOrdering Facility: [facility] Address: [address] [place] [address] Performed By: #### 2 4321-2, TSHRF ####[facility] LABIA [id number] [place] [id number] [place] Creatinine [Mass/Vol] 1.01 mg/dL High 0.58-0.96 [facility] Comment on above: Order Comment: Speci men Type: BLOOD SPECIMENOrdering Facility: [facility] Address: [address] [place] [address] Performed By: #### 2 4321-2, TSHRF ####[facility] LABIA [id number] [place] [address] [place] Creatinine and Glomerular filtration rate.predicted panel (S/P/Bld) 55 mL/min/1.73m??? Low >=60 [facility] Comment on above: Order Comment: Speci men Type: BLOOD SPECIMENOrdering Facility: [facility] Address: [address] [place] [address] Result Comment: Kimberley mated Glomerular Filtration Rate (eGFR) is calculated using the 2020 CKD-EPI creatinine equation. This equation utilizes serum creatinine, sex, and age as parameters. The creatinine assay has traceable calibration to isotope dilution-mass spectrometry. Refer to KDIGO guidelines for clinical interpretation. In patients with unstable renal function, e.g. those with acute kidney injury, the eGFR may not accurately reflect actual GFR. Performed By: #### 2 4321-2, TSHRF ####[facility] LABIA [id number] [place] [id number] [place] Glucose [Mass/Vol] 149 mg/dL High 74-99 [facility] Comment on above: Order Comment: Speci men Type: BLOOD SPECIMENOrdering Facility: [facility] Address: [address] [place] [address] Result Comment: The [place] Diabetes Association (ADA) provides guidance for cutoff values for fasting glucose and random glucose. The ADA defines fasting as no caloric intake for at least 8 hours. Fasting plasma glucose results between 100 to 125 mg/dL indicate increased risk for diabetes (prediabetes).Fasting plasma glucose results greater than or equal to 126 mg/dL meet the criteria for diagnosis of diabetes. In the absence of unequivocal hyperglycemia, results should be confirmed by repeat testing. In a patient with classic symptoms of hyperglycemia or hyperglycemic crisis, random plasma glucose results greater than or equal to 200 mg/dL meet the criteria for diagnosis of diabetes.Reference: Standards of Medical Care in Diabetes 2016, [place] Diabetes Association. Diabetes Care. 2016.39(Suppl 1). Performed By: #### 2 4321-2, TSHRF ####[facility] LABCLIA [id number] [place] [address] [place] Potassium [Moles/Vol] 3.8 mmol/L Normal 3.7-5.1 [facility] Comment on above: Order Comment: Speci men Type: BLOOD SPECIMENOrdering Facility: [facility] Address: [address] [place] [address] Performed By: #### 2 432-2, TSHRF ####[facility] LABCLIA [id number] [place] [id number] [place] Sodium [Moles/Vol] 138 mmol/L Normal 136-144 [facility] Comment on above: Order Comment: Speci men Type: BLOOD SPECIMENOrdering Facility: [facility] Address: [address] [place] [address] Performed By: #### 2 432-2, TSHRF ####[facility] LABCLIA [id number] [place] [id number] [place] Urea nitrogen [Mass/Vol] 23 mg/dL High 7-21 [facility] Comment on above: Order Comment: Speci men Type: BLOOD SPECIMENOrdering Facility: [facility] Address: [address] [place] [address] Performed By: #### 2 4321-2, TSHRF ####[facility] LABCLIA [id number] [place] [id number] [place] [facility] CBC W Auto Differential pane l (Bld)on 07-17-2024 Basophils (Bld) [#/Vol] 0.04 10*3/uL [facility] Basophils/100 WBC (Bld) 0.5 % C [facility] Differential cell count method Nom (Bld) Auto [facility] Eosinophils (Bld) [#/Vol] 0.19 10*3/uL [facility] Eosinophils/100 WBC (Bld) 2.6 % [facility] Erythrocyte distribution width (RBC) [Ratio] 15.1 % High 11.5 - 15.0 % [facility] Hematocrit (Bld) [Volume fraction] 36.7 % 36.0 - 46.0 % [facility] Hemoglobin (Bld) [Mass/Vol] 11.8 g/dL 11.5 - 15.5 g/dL [facility] Immature granulocytes (Bld) [#/Vol] 0.05 10*3/uL [facility] Immature granulocytes/100 WBC (Bld) 0.7 % [facility] Interpretation and review of laboratory results Abnormal [facility] Lymphocytes (Bld) [#/Vol] 1.94 10*3/uL [facility] Lymphocytes/100 WBC (Bld) 26.6 % [facility] MCH (RBC) [Entitic mass] 31.6 pg 26.0 - 34.0 pg [facility] MCHC (RBC) [Mass/Vol] 32.2 g/dL 30.5 - 36.0 g/dL [facility] MCV (RBC) [Entitic vol] 98.1 fL 80.0 - 100.0 fL [facility] Monocytes (Bld) [#/Vol] 0.7 10*3/uL [facility] Monocytes/100 WBC (Bld) 9.6 % C [facility] Neutrophils (Bld) [#/Vol] 4.36 10*3/uL [facility] Neutrophils/100 WBC (Bld) 60 % [facility] Nucleated RBC (Bld) [#/Vol] [facility] Nucleated RBC/100 WBC (Bld) [Ratio] 0 % /100 WBC [facility] Platelet mean volume (Bld) [Entitic vol] 11.8 fL 9.0 - 12.7 fL [facility] Platelets (Bld) [#/Vol] 239 10*3/uL [facility] RBC (Bld) [#/Vol] 3.74 10*6/uL Low 3.90 - 5.2 0 m/uL [facility] WBC (Bld) [#/Vol] 7.28 10*3/uL [facility] Basophils (Bld) [#/Vol] 0.04 10*3/uL Normal <0.11 [facility] Comment on above: Order Comment: Speci men Type: BLOOD SPECIMENOrdering Facility: [facility] Address: [address] [place] [address] Performed By: #### 5 7021-8 ####[facility] LABCLIA [id number] [place] [address] [place] Basophils/100 WBC (Bld) 0.5 % Normal C [facility] Comment on above: Order Comment: Speci men Type: BLOOD SPECIMENOrdering Facility: [facility] Address: [address] [place] [address] Performed By: #### 5 7021-8 ####[facility] LABCLIA [id number] [place] [address] [place] Differential cell count method Nom (Bld) Auto Normal [facility] Comment on above: Order Comment: Speci men Type: BLOOD SPECIMENOrdering Facility: [facility] Address: [address] [place] [address] Performed By: #### 5 7021-8 ####[facility] LABCLIA [id number] [place] [address] [place] Eosinophils (Bld) [#/Vol] 0.19 10*3/uL Normal <0.46 [facility] Comment on above: Order Comment: Speci men Type: BLOOD SPECIMENOrdering Facility: [facility] Address: [address] [place] [address] Performed By: #### 5 7021-8 ####[facility] LABCLIA [id number] [address] [id number] [address] [place] Eosinophils/100 WBC (Bld) 2.6 % Normal [facility] Comment on above: Order Comment: Speci men Type: BLOOD SPECIMENOrdering Facility: [facility] Address: [address] [place] [address] Performed By: #### 5 7021-8 ####[facility] LABCLIA [id number] [place] [address] [place] Erythrocyte distribution width (RBC) [Ratio] 15.1 % High 11.5-15.0 [facility] Comment on above: Order Comment: Speci men Type: BLOOD SPECIMENOrdering Facility: [facility] Address: [address] [place] [address] Performed By: #### 5 7021-8 ####[facility] LABCLIA [id number] [place] [address] [place] Hematocrit (Bld) [Volume fraction] 36.7 % Normal 36.0-46.0 [facility] Comment on above: Order Comment: Speci men Type: BLOOD SPECIMENOrdering Facility: [facility] Address: [address] [place] [address] Performed By: #### 5 7021-8 ####[facility] LABCLIA [id number] [place] [address] [place] Hemoglobin (Bld) [Mass/Vol] 11.8 g/dL Normal 11.5-15.5 [facility] Comment on above: Order Comment: Speci men Type: BLOOD SPECIMENOrdering Facility: [facility] Address: [address] [place] [address] Performed By: #### 5 7021-8 ####[facility] LABCLIA [id number] [place] [address] [place] Immature granulocytes (Bld) [#/Vol] 0.05 10*3/uL Normal <0.10 [facility] Comment on above: Order Comment: Speci men Type: BLOOD SPECIMENOrdering Facility: [facility] Address: [address] [place] [address] Performed By: #### 5 7021-8 ####[facility] LABCLIA [id number] [place] [address] [place] [facility] Immature granulocytes/100 WBC (Bld) 0.7 % Normal [facility] Comment on above: Order Comment: Speci men Type: BLOOD SPECIMENOrdering Facility: [facility] Address: [address] [place] [address] Performed By: #### 5 7021-8 ####[facility] LABCLIA [id number] [place] [address] [place] Lymphocytes (Bld) [#/Vol] 1.94 10*3/uL Normal 1.00-4.00 [facility] Comment on above: Order Comment: Speci men Type: BLOOD SPECIMENOrdering Facility: [facility] Address: [address] [place] [address] Performed By: #### 5 7021-8 ####[facility] LABCLIA [id number] [place] [address] [place] Lymphocytes/100 WBC (Bld) 26.6 % Normal [facility] Comment on above: Order Comment: Speci men Type: BLOOD SPECIMENOrdering Facility: [facility] Address: [address] [place] [address] Performed By: #### 5 7021-8 ####[facility] LABCLIA [id number] [place] [address] [place] MCH (RBC) [Entitic mass] 31.6 pg Normal 26.0-34.0 [facility] Comment on above: Order Comment: Speci men Type: BLOOD SPECIMENOrdering Facility: [facility] Address: [address] [place] [address] Performed By: #### 5 7021-8 ####[facility] LABCLIA [id number] [place] [address] [place] MCHC (RBC) [Mass/Vol] 32.2 g/dL Normal 30.5-36.0 [facility] Comment on above: Order Comment: Speci men Type: BLOOD SPECIMENOrdering Facility: [facility] Address: [address] [place] [address] Performed By: #### 5 7021-8 ####[facility] LABIA [id number] [place] [address] [place] MCV (RBC) [Entitic vol] 98.1 fL Normal 80.0-100.0 C [facility] Comment on above: Order Comment: Speci men Type: BLOOD SPECIMENOrdering Facility: [facility] Address: [address] [place] [address] Performed By: #### 5 7021-8 ####[facility] LABIA [id number] [place] [address] [place] Monocytes (Bld) [#/Vol] 0.70 10*3/uL Normal <0.87 [facility] Comment on above: Order Comment: Speci men Type: BLOOD SPECIMENOrdering Facility: [facility] Address: [address] [place] [address] Performed By: #### 5 7021-8 ####[facility] LABIA [id number] [place] [address] [place] Monocytes/100 WBC (Bld) 9.6 % Normal [facility] Comment on above: Order Comment: Speci men Type: BLOOD SPECIMENOrdering Facility: [facility] Address: [address] [place] [address] Performed By: #### 5 7021-8 ####[facility] LABCLIA [id number] [place] [address] [place] Neutrophils (Bld) [#/Vol] 4.36 10*3/uL Normal 1.45-7.50 [facility] Comment on above: Order Comment: Speci men Type: BLOOD SPECIMENOrdering Facility: [facility] Address: [address] [place] [address] Performed By: #### 5 7021-8 ####[facility] LABCLIA [id number] [address] [place] Neutrophils/100 WBC (Bld) 60.0 % Normal [facility] Comment on above: Order Comment: Speci men Type: BLOOD SPECIMENOrdering Facility: [facility] Address: [address] [place] [address] Performed By: #### 5 7021-8 ####[facility] LABCLIA [id number] [place] [address] [place] Nucleated RBC (Bld) [#/Vol] 10*3/uL Normal <0.01 [facility] Comment on above: Order Comment: Speci men Type: BLOOD SPECIMENOrdering Facility: [facility] Address: [address] [place] [address] Performed By: #### 5 7021-8 ####[facility] LABCLIA [id number] [place] [address] [place] Nucleated RBC/100 WBC (Bld) [Ratio] 0.0 /100 WBC Normal [facility] Comment on above: Order Comment: Speci men Type: BLOOD SPECIMENOrdering Facility: [facility] Address: [address] [place] [address] Performed By: #### 5 7021-8 ####[facility] LABCLIA [id number] [place] [id number] [place] Platelet mean volume (Bld) [Entitic vol] 11.8 fL Normal 9.0-12.7 [facility] Comment on above: Order Comment: Speci men Type: BLOOD SPECIMENOrdering Facility: [facility] Address: [address] [place] [address] Performed By: #### 5 7021-8 ####[facility] LABCLIA [id number] [address] [address] [place] Platelets (Bld) [#/Vol] 239 10*3/uL Normal 150-400 [facility] Comment on above: Order Comment: Speci men Type: BLOOD SPECIMENOrdering Facility: [facility] Address: [address] [place] [address] Performed By: #### 5 7021-8 ####[facility] [id number] [place] [address] [place] RBC (Bld) [#/Vol] 3.74 10*6/uL Low 3.90-5.20 [facility] Comment on above: Order Comment: Speci men Type: BLOOD SPECIMENOrdering Facility: [facility] Address: [address] [place] [address] Performed By: #### 5 7021-8 ####[facility] [id number] [place] [address] [place] WBC (Bld) [#/Vol] 7.28 10*3/uL Normal 3.70-11.00 [facility] Comment on above: Order Comment: Speci men Type: BLOOD SPECIMENOrdering Facility: [facility] Address: [address] [place] [address] Performed By: #### 5 7021-8 ####[facility] [id number] [place] [address] [place] CNOVon 07-17-2024 CNOV Normal [facility] HbA1c (Bld)on 07-17-2024 Average glucose Estimated from glycated hemoglobin (Bld) [Mass/Vol] 114 mg/dL Normal [facility] Comment on above: Order Comment: Speci men Type: BLOOD SPECIMENOrdering Facility: [facility] Address: [address] [place] [address] Result Comment: eAG: (Estimated average glucose) is a calculated value from HgbA1c and is service representative of the average blood glucose level in the last 2-3 month period. Performed By: #### 5 5454-3 ####[facility] LABCLIA [id number] [place] [address] [place] HbA1c (Bld) [Mass fraction] 5.6 % Normal 4.3-5.6 [facility] Comment on above: Order Comment: Speci men Type: BLOOD SPECIMENOrdering Facility: [facility] Address: [address] [place] [address] Result Comment: [place] Diabetes Association guidelines indicate that patients with HgbA1c in the range 5.7-6.4% are at increased risk for development of diabetes, and intervention by lifestyle modification may be beneficial. HgbA1c greater or equal to 6.5% is considered diagnostic of diabetes. Performed By: #### 5 5454-3 ####[facility] LABCLIA [id number] [place] [address] [place] TSH W/REFLEX FT4on 5 TSH Qn 2.660 m[IU]/L Normal 0.270-4.200 [facility] Comment on above: Order Comment: Speci men Type: BLOOD SPECIMENOrdering Facility: [facility] Address: [address] [place] [address] Performed By: #### 2 4321-2, TSHRF ####[facility] LABIA [id number] [place] [address] [place] Anion gap in Serum or Plasma Ordered By: Dominick Harrell on 07-10-2024 Anion gap [Moles/Vol] 14 mmol/L 5-15 [facility] BUN/creatinine ratioOrdered By: Dominick Harrell on 07-10-2024 Urea nitrogen/Creatinine [Mass ratio] 24.8 mg/mg High 02-18 [facility] Basic Metabolic Profile (BMP )on 07-10-2024 BUN/CRE 24.8 RATIO High 02-18 [facility] Comment on above: Performed By: #### L 500.2500 ####[facility] [address] [place], [address] Calcium [Mass/Vol] 9.6 mg/dL Normal 7.6-11.0 [facility] Comment on above: Performed By: #### L 500.2500 ####[facility] [address], [address] Chloride [Moles/Vol] 99 mmol/L Normal 98-108 [facility] Comment on above: Performed By: #### L 500.2500 ####[facility] [address] [place], [address] CO2 [Moles/Vol] 24.0 mmol/L Normal 21.0-32.0 [facility] Comment on above: Performed By: #### L 500.2500 ####[facility] [address] [place], [address] Creatinine [Mass/Vol] 1.01 mg/dL Normal 0.70-1.20 [facility] Comment on above: Performed By: #### L 500.2500 ####[facility] [address] [place], [address] GAP 14 Normal 5-15 [facility] Comment on above: Performed By: #### L 500.2500 ####[facility] [address] [place], [address] GFR/1.73 sq M.predicted among non-blacks MDRD (S/P/Bld) [Vol rate/Area] 55 mL/min/{1.73_m2} Low >60 [facility] Comment on above: Result Comment: mL/m in/1.73m2 CKD-EPI Creatinine Equation (2020) Performed By: #### L 500.2500 ####[facility] [address] [place], [address] Glucose [Mass/Vol] 181 mg/dL High 70-99 [facility] Comment on above: Performed By: #### L 500.2500 ####[facility] [address] [place], [address] Potassium [Moles/Vol] 2.9 mmol/L Low 3.3-5.1 [facility] Comment on above: Performed By: #### L 500.2500 ####[facility] [address] [place], [address] Sodium [Moles/Vol] 136 mmol/L Normal 133-145 [facility] Comment on above: Performed By: #### L 500.2500 ####[facility] [address] [place], [place], [address] Urea nitrogen [Mass/Vol] 25 mg/dL High 4-19 [facility] Comment on above: Performed By: #### L 500.2500 ####[facility] [address] [place], [place], [address] Carbon dioxide, total [Moles /volume] in Central venous bloodOrdered By: Dominick Harrell on 07-10-2024 CO2 [Moles/Vol] 24.0 mmol/L 21.0-32.0 [facility] Chloride assayOrdered By: Cary Harrell on 07-10-2024 Chloride [Moles/Vol] 99 mmol/L 98-108 [facility] GFR/1.73 sq M.predicted rylie g non-blacks MDRD (S/P/Bld) [Vol rate/Area]Ordered By: Dominick Harrell on 07-10-2024 Estimated GFR (MDRD) Non-Af Amer 55 Low >60 [facility] Comment on above: mL/min/1.73m2 CKD-EP I Creatinine Equation (2020) Glomerular filtration rate ( GFR) estimation/1.73 sq m using serum, plasma, or whole bOrdered By: Dominick Harrell on 07-10-2024 GFR/1.73 sq M.predicted among non-blacks MDRD (S/P/Bld) [Vol rate/Area] 55 mL/min/{1.73_m2} Low >60 [facility] Comment on above: mL/min/1.73m2 CKD-EP I Creatinine Equation (2020) Potassium (Unsp spec) [Mass/ Vol]Ordered By: Dominick Harrell on 07-10-2024 Potassium [Moles/Vol] 2.9 mmol/L Low 3.3-5.1 [facility] Potassium measurement (mass/ volume)Ordered By: Dominick Harrell on 07-10-2024 Potassium (Unsp spec) [Mass/Vol] 2.9 mmol/L Low 3.3-5.1 [facility] Serum creatinine measurement (mass/volume)Ordered By: Dominick Harrell on 07-10-2024 Creatinine [Mass/Vol] 1.01 mg/dL 0.70-1.20 [facility] Serum glucose measurement (m ass/volume)Ordered By: Dominick Harrell on 07-10-2024 Glucose [Mass/Vol] 181 mg/dL High 70-99 [facility] Serum or plasma calcium walker urement (mass/volume)Ordered By: Dominick Harrell on 07-10-2024 Calcium [Mass/Vol] 9.6 mg/dL 7.6-11.0 [facility] Serum or plasma urea nitroge n measurement (mass/volume)Ordered By: Dominick Harrell on 07-10-2024 Urea nitrogen [Mass/Vol] 25 mg/dL High 4-19 [facility] Sodium levelOrdered By: Dominick Harrell on 07-10-2024 Sodium [Moles/Vol] 136 mmol/L 133-145 [facility] M7400.3302on 06-25-2024 M7400.3302 Normal [facility] Comment on above: Performed By: #### M 100.6795, M100.637, M600.5000, M7400.3302, M100.6796, L7000.0700 ####[facility] [address] [place], [address] Ova and Parasites 8623on OP Normal [facility] Comment on above: Performed By: #### M 100.6795, M100.637, M600.5000, M7400.3302, M100.6796, L7000.0700 ####[facility] [address] [place], [address] Calprotectin, Stoolon [address] 412 ug/g Abnormal 0-120 [facility] Comment on above: Result Comment: Conc entration Interpretation Follow-Up< 5 - 50 ug/g Normal None>50 -120 ug/g Borderline Re-evaluate in 4-6 weeks >120 ug/g Abnormal Repeat as clinically indicatedPerformed at: [email or web address] [id number] Director: Tom Colon MD, Phone: [phone] Performed By: #### M 100.6795, M100.637, M600.5000, M7400.3302, M100.6796, L7000.0700 ####[facility] [address] [place], [place], [id number] C. difficile DNA MARCOS+probe Q l (Unsp spec)Ordered By: Ese Hillman on 06-20-2024 Clostridioides difficile (PCR) [facility] C. difficile Ql (Stl)Ordered By: Ese Hillman on 06-20-2024 C. difficile GDH Antigen & Toxins [facility] CDIFF (PCR)on 06-20-2024 CDIFF NA 027 NEGATIVE C. Diff PCR A Positive-Toxigenic C. Difficile Detected A Normal [facility] Comment on above: Performed By: #### M 100.6795, M100.637, M600.5000, M7400.3302, M100.6796, L7000.0700 ####[facility] [address] [place], [place], [id number] Calprotectin stoolOrdered By : Ese Hillman on 06-20-2024 Calprotectin stool 412 ug/g High 0-120 [facility] Comment on above: Concentration Interp retation Follow-Up< 5 - 50 ug/g Normal None>50 -120 ug/g Borderline Re-evaluate in 4-6 weeks >120 ug/g Abnormal Repeat as clinically indicatedPerformed at: - [facility] [id number] Director: Tom Colon MD, Phone: [phone] Stool Calprotectin 412 ug/g High 0-120 [facility] Comment on above: Concentration Interp retation Follow-Up< 5 - 50 ug/g Normal None>50 -120 ug/g Borderline Re-evaluate in 4-6 weeks >120 ug/g Abnormal Repeat as clinically indicatedPerformed at: - [facility] [id number] Director: Tom Colon MD, Phone: [phone] Cardiology Visit Reporton Cardiology Visit Report Normal [facility] Clostridium Diff Toxin/Agon 06-20-2024 CDIFF (EIA) Normal [facility] Comment on above: Performed By: #### M 100.6795, M100.637, M600.5000, M7400.3302, M100.6796, L7000.0700 ####[facility] [address] [place], [place], [id number] Clostridium difficile detect ion by polymerase chain reactionOrdered By: Ese Hillman on 06-20-2024 C. difficile DNA MARCOS+probe Ql (Unsp spec) [facility] ENTERIC PATHOGEN PANEL STOOL on 06-20-2024 EP PANEL Normal [facility] Comment on above: Performed By: #### M 100.6795, M100.637, M600.5000, M7400.3302, M100.6796, L7000.0700 ####[facility] [address] [place], [place], [id number] Giardia lamblia antigen assa y by enzyme immunoassayOrdered By: Ese Hillman on 06-20-2024 Giardia Antigen (LATANYA) [facility] Ova and parasitesOrdered By: Ese Hillman on 06-20-2024 Ova and Parasites [facility] Stool Clostridium difficile detectionOrdered By: Ese Hillman on 06-20-2024 C. difficile Ql (Stl) [facility] Stool enteric pathogen panel by probe and target amplification methodOrdered By: Ese Hillman on 06-20-2024 Enteric Bacteriology [facility] Gastroenterology Visit Repor ton 06-19-2024 Gastroenterology Visit Report Normal [facility] L3410.9998on 06-18-2024 [facility] Misc. Normal [facility] Comment on above: Order Comment: [id number] 4STOOL CULTURE Result Comment: GEORGEEwelina Palmer CULTURESalmonella/Shigella Screen Final ReportResult 1 NO Salmonella or Shigella recovered.Campylobacter Culture Final ReportResult 1 NO Campylobacter species isolated.E. coli Shiga Toxin EIA NEGATIVE ___ TESTING PERFORMED AT [facility]. ORIGINAL REPORT ON FILE IN LAB CONTAINS ADDITIONAL TEST SITE INFORMATION. Performed By: #### L 3410.9998 ####[facility] [address] [place], [place], [address] MR/BMS.BVPardeep 06-12-2024 MR/BMS.BVS Normal [facility] CNOVon 06-04-2024 CNOV Normal [facility] CNPNon 05-29-2024 CNPN Normal [facility] Basic Metabolic Profile (BMP )on 05-28-2024 BUN/CRE 31.9 RATIO High 10-20 [facility] Comment on above: Performed By: #### L 500.2500 ####[facility] [address] [place], [address] CA,Total 9.3 mg/dL Normal 8.5-10.1 [facility] Comment on above: Performed By: #### L 500.2500 ####[facility] [address] [place], [address] Chloride [Moles/Vol] 108 mmol/L High 98-107 [facility] Comment on above: Performed By: #### L 500.2500 ####[facility] [address] [place], [address] CO2 [Moles/Vol] 22.0 mmol/L Normal 21.0-32.0 [facility] Comment on above: Performed By: #### L 500.2500 ####[facility] [address] [place], [address] Creatinine [Mass/Vol] 1.13 mg/dL High 0.55-1.02 [facility] Comment on above: Result Comment: The validity of the calculated GFR GFRAA in patients over70 years has not been determined. Clinical correlation isessential. Performed By: #### L 500.2500 ####[facility] [address] [place], [address] EST GFR - AA 59 mL/min Low >60 [facility] Comment on above: Result Comment: Afri can Portuguese GFR Calc Performed By: #### L 500.2500 ####[facility] [address] [place], [address] GAP 6 Normal 5-15 [facility] Comment on above: Performed By: #### L 500.2500 ####[facility] [address] [place], [address] GFR/1.73 sq M.predicted among non-blacks MDRD (S/P/Bld) [Vol rate/Area] 49 mL/min/{1.73_m2} Low >60 [facility] Comment on above: Result Comment: Non- GFR Calc Performed By: #### L 500.2500 ####[facility] [address] [place], [address] Glucose [Mass/Vol] 182 mg/dL High 74-106 [facility] Comment on above: Result Comment: Fast ing Glucose result greater than or equal to 126 mg/dLsuggests DIABETES MELLITUS per A.D.A. criteria. Performed By: #### L 500.2500 ####[facility] [address] [place], [address] Potassium [Moles/Vol] 4.5 mmol/L Normal 3.5-5.1 [facility] Comment on above: Performed By: #### L 500.2500 ####[facility] [address] [place], [address] Sodium [Moles/Vol] 136 mmol/L Normal 136-145 [facility] Comment on above: Performed By: #### L 500.2500 ####[facility] [address] [place], [address] Urea nitrogen [Mass/Vol] 36 mg/dL High 7-18 [facility] Comment on above: Performed By: #### L 500.2500 ####[facility] [address] [place], [address] Blood urea nitrogen (BUN)/cr eatinine ratioOrdered By: Roly Herrera on 05-28-2024 Urea nitrogen/Creatinine [Mass ratio] 31.9 mg/mg High 10-20 [facility] Carbon dioxide measurementOr dered By: Roly Herrera on 05-28-2024 CO2 [Moles/Vol] 22.0 mmol/L 21.0-32.0 [facility] Chloride measurementOrdered By: Roly Herrera on 05-28-2024 Chloride [Moles/Vol] 108 mmol/L High 98-107 [facility] Estimated glomerular filtrat ion rate (GFR) AmericanOrdered By: Roly Herrera on 05-28-2024 Estimated GFR (MDRD) Amer 59 mL/min Low >60 [facility] Comment on above: GFR Calc Glomerular filtration rate ( GFR) estimationOrdered By: Roly Herrera on 05-28-2024 Estimated GFR (MDRD) Non-Af Amer 49 mL/min Low >60 [facility] Comment on above: Non- GFR Calc Glucose measurementOrdered B y: Roly Herrera on 05-28-2024 Glucose [Mass/Vol] 182 mg/dL High 74-106 [facility] Comment on above: Fasting Glucose resu lt greater than or equal to 126 mg/dL suggests DIABETES MELLITUS per A.D.A. criteria. Potassium measurementOrdered By: Roly Herrera on 05-28-2024 Potassium [Moles/Vol] 4.5 mmol/L 3.5-5.1 [facility] Serum anion gap measurementO rdered By: Roly Herrera on 05-28-2024 Anion gap [Moles/Vol] 6 mmol/L 5-15 [facility] Serum or plasma calcium walker urement (mass/volume)Ordered By: Roly Herrera on 05-28-2024 Calcium [Mass/Vol] 9.3 mg/dL 8.5-10.1 [facility] Serum or plasma creatinine m easurement (mass/volume)Ordered By: Roly Herrera on 05-28-2024 Creatinine [Mass/Vol] 1.13 mg/dL High 0.55-1.02 [facility] Comment on above: The validity of the calculated GFR & GFRAA in patients over 70 years has not been determined. Clinical correlation is essential. Serum or plasma urea nitroge n measurement (mass/volume)Ordered By: Roly Herrera on 05-28-2024 Urea nitrogen [Mass/Vol] 36 mg/dL High 7-18 [facility] Sodium levelOrdered By: Reymundo Herrera on 05-28-2024 Sodium [Moles/Vol] 136 mmol/L 136-145 [facility] US Art Duplex Unilat Lower E xton 05-28-2024 US Art Duplex Unilat Lower Ext Normal [facility] CNPNon 05-23-2024 CNPN Normal [facility] PT panel Coag (PPP)on 2024 INR Coag (Bld) [Relative time] 2.1 {INR} [facility] CNPNon 05-21-2024 CNPN Normal [facility] CNPNon 05-16-2024 CNPN Normal [facility] PT panel Coag (PPP)on 2024 INR Coag (Bld) [Relative time] 1.5 (ext) 2.0 - 3.[address] [facility] 12 Lead EKG performed by [facility] on 05-14-2024 12 Lead EKG performed by [facility] Normal [facility] Cardiology Visit Reporton Cardiology Visit Report Normal [facility] CNPNon 05-09-2024 CNPN Normal [facility] PT panel Coag (PPP)on 2024 INR Coag (Bld) [Relative time] 1.9 {INR} [facility] Comment on above: EXT [facility] CNOVon 05-08-2024 CNOV Normal [facility] US CAROTID ARTERIES KWADWO VAS LABon 05-08-2024 US CAROTID ARTERIES KWADWO VAS LAB Normal [facility] CNPNon 05-03-2024 CNPN Normal [facility] CNPNon 05-01-2024 CNPN Normal [facility] PT panel Coag (PPP)on 2023 INR Coag (Bld) [Relative time] 2.5 (ext) 2.0 - 3.[address] [facility] CNPNon 04-30-2024 CNPN Normal [facility] CNPNon 04-27-2024 CNPN Normal [facility] Basic Metabolic Profile (BMP )on 04-24-2024 BUN Normal 7-18 [facility] Comment on above: Result Comment: Canc elled via OM: Order cancelled - Patient discharged Performed By: #### L 100.0100, L500.2500 ####[facility] [address] [place], [address] BUN/CRE Normal 10-20 [facility] Comment on above: Result Comment: Canc elled via OM: Order cancelled - Patient discharged Performed By: #### L 100.0100, L500.2500 ####[facility] [address] [place], [address] CA,Total Normal 8.5-10.1 [facility] Comment on above: Result Comment: Canc elled via OM: Order cancelled - Patient discharged Performed By: #### L 100.0100, L500.2500 ####[facility] [address] [place], [address] CL Normal 98-107 [facility] Comment on above: Result Comment: Canc elled via OM: Order cancelled - Patient discharged Performed By: #### L 100.0100, L500.2500 ####[facility] [address] [place], [address] CO2 Normal 21.0-32.0 [facility] Comment on above: Result Comment: Canc elled via OM: Order cancelled - Patient discharged Performed By: #### L 100.0100, L500.2500 ####[facility] [address] [place], [address] CREAT,SERUM Normal 0.55-1.02 [facility] Comment on above: Result Comment: Canc elled via OM: Order cancelled - Patient discharged Performed By: #### L 100.0100, L500.2500 ####[facility] [address] [place], [address] EST GFR Normal >60 [facility] Comment on above: Result Comment: Canc elled via OM: Order cancelled - Patient discharged Performed By: #### L 100.0100, L500.2500 ####[facility] [address] [place], [address] EST GFR - AA Normal >60 [facility] Comment on above: Result Comment: Canc elled via OM: Order cancelled - Patient discharged Performed By: #### L 100.0100, L500.2500 ####[facility] [address] [place], [address] GAP Normal 5-15 [facility] Comment on above: Result Comment: Canc elled via OM: Order cancelled - Patient discharged Performed By: #### L 100.0100, L500.2500 ####[facility] [address] [place], [address] GLU Normal 74-106 [facility] Comment on above: Result Comment: Canc elled via OM: Order cancelled - Patient discharged Performed By: #### L 100.0100, L500.2500 ####[facility] [address] [place], [address] Potassium Normal 3.5-5.1 [facility] Comment on above: Result Comment: Canc elled via OM: Order cancelled - Patient discharged Performed By: #### L 100.0100, L500.2500 ####[facility] [address] [place], [address] Basic Metabolic Profile (BMP) Normal 136-145 [facility] Comment on above: Result Comment: Canc elled via OM: Order cancelled - Patient discharged Performed By: #### L 100.0100, L500.2500 ####[facility] [address] [place], [address] CBC W/Diff, Automatedon 12-2 Absolute Neut Normal 2.0-7.7 [facility] Comment on above: Result Comment: Canc elled via OM: Order cancelled - Patient discharged Performed By: #### L 100.0100, L500.2500 ####[facility] [address] [place], [address] HCT Normal 37-47 [facility] Comment on above: Result Comment: Canc elled via OM: Order cancelled - Patient discharged Performed By: #### L 100.0100, L500.2500 ####[facility] [address] [place], [address] HGB Normal 12.0-15.0 [facility] Comment on above: Result Comment: Canc elled via OM: Order cancelled - Patient discharged Performed By: #### L 100.0100, L500.2500 ####[facility] [address] [place], [address] MCH Normal 27.0-32.0 [facility] Comment on above: Result Comment: Canc elled via OM: Order cancelled - Patient discharged Performed By: #### L 100.0100, L500.2500 ####[facility] [address] [place], [address] MCHC Normal 32-36 [facility] Comment on above: Result Comment: Canc elled via OM: Order cancelled - Patient discharged Performed By: #### L 100.0100, L500.2500 ####[facility] [address] [place], [address] MCV Normal 81-99 [facility] Comment on above: Result Comment: Canc elled via OM: Order cancelled - Patient discharged Performed By: #### L 100.0100, L500.2500 ####[facility] [address] [place], [address] NEUT% Normal 47-70 [facility] Comment on above: Result Comment: Canc elled via OM: Order cancelled - Patient discharged Performed By: #### L 100.0100, L500.2500 ####[facility] [address] [place], [address] PLT Normal 150-450 [facility] Comment on above: Result Comment: Canc elled via OM: Order cancelled - Patient discharged Performed By: #### L 100.0100, L500.2500 ####[facility] [address] [place], [address] RBC Normal 4.2-5.4 [facility] Comment on above: Result Comment: Canc elled via OM: Order cancelled - Patient discharged Performed By: #### L 100.0100, L500.2500 ####[facility] [address] [place], [address] RDW CV Normal 11.6-14.6 [facility] Comment on above: Result Comment: Canc elled via OM: Order cancelled - Patient discharged Performed By: #### L 100.0100, L500.2500 ####[facility] [address] [place], [address] RDW SD Normal 35.1-43.9 [facility] Comment on above: Result Comment: Canc elled via OM: Order cancelled - Patient discharged Performed By: #### L 100.0100, L500.2500 ####[facility] [address] [place], [address] WBC Normal 4.4-11.0 [facility] Comment on above: Result Comment: Canc elled via OM: Order cancelled - Patient discharged Performed By: #### L 100.0100, L500.2500 ####[facility] [address] [place], [address] CNOVon 04-23-2024 CNOV Normal [facility] CNPNon 04-23-2024 CNPN Normal [facility] PT panel Coag (PPP)on 2023 INR Coag (PPP) [Relative time] 4.1 {INR} High 0.9-1.3 [facility] Comment on above: Order Comment: Speci men Type: BLOOD SPECIMENOrdering Facility: [facility] Address: [address] [place] [address] Result Comment: Geetha min K Antagonist (VKA) Therapeutic Range: INR 2 to 3 (Target INR of 2.5)Note: For patients treated with VKA drugs, such as warfarin, the [employer] 2012 Guideline recommends a therapeutic INR range of 2 to 3 (target INR of 2.5). This recommendation includes high-risk patients with antiphospholipid syndrome with previous arterial or venous thromboembolism, current-generation mechanical or bioprosthetic aortic heart valve replacement.Note: Patients with mechanical aortic valve replacement and additional risk factors for thromboembolic events (atrial fibrillation, previous thromboembolism, LV dysfunction, hypercoagulable conditions) or an older generation mechanical AVR (i.e., ball in-Cage) or any mechanical MVR should have a INR therapeutic range of 2.5 to 3.5 (target INR of 3).Oscar GH, et al. Chest 2012, 141:7S-47SNishtrue RA, et al. [facility] 2017, 70: 252-289 Performed By: #### 3 4528-0 ####[facility] [id number] [place] [address] [place] PT Coag (PPP) [Time] 38.8 s High <13.1 [facility] Comment on above: Order Comment: Speci men Type: BLOOD SPECIMENOrdering Facility: [facility] Address: [facility] [place] [address] Performed By: #### 3 4528-0 ####[facility] [id number] [place] [address] [place] Prothrombin Time w/INRon INR Normal [facility] Comment on above: Result Comment: Canc elled via OM: Order cancelled - Patient discharged Performed By: #### L 300.3900 ####[facility] [address] [facility] [address] PROTIME Normal 11.7-14.9 [facility] Comment on above: Result Comment: Canc elled via OM: Order cancelled - Patient discharged Performed By: #### L 300.3900 ####[facility] [address] [facility] [id number] CNPNon 04-18-2024 CNPN Normal [facility] PT panel Coag (PPP)on 2023 INR Coag (Bld) [Relative time] 3.3 EXT 2.0 - 3.0 [facility] INR resulted on 04/18/2024 at Home with [facility] fingerstick INR. Aleisha Shaffer RN [facility] Basic Metabolic Profile (BMP )on 04-17-2024 BUN Normal - [facility] Comment on above: Result Comment: Canc elled via OM: Order cancelled - Patient discharged Performed By: #### L 100.0100, L500.2500 ####[facility] [address] [place], [address] BUN/CRE Normal 10-20 [facility] Comment on above: Result Comment: Canc elled via OM: Order cancelled - Patient discharged Performed By: #### L 100.0100, L500.2500 ####[facility] [address] [place], [address] CA,Total Normal 8.5-10.1 [facility] Comment on above: Result Comment: Canc elled via OM: Order cancelled - Patient discharged Performed By: #### L 100.0100, L500.2500 ####[facility] [address] [place], [address] CL Normal 98-107 [facility] Comment on above: Result Comment: Canc elled via OM: Order cancelled - Patient discharged Performed By: #### L 100.0100, L500.2500 ####[facility] [address] [place], [address] CO2 Normal 21.0-32.0 [facility] Comment on above: Result Comment: Canc elled via OM: Order cancelled - Patient discharged Performed By: #### L 100.0100, L500.2500 ####[facility] [address] [place], [address] CREAT,SERUM Normal 0.55-1.02 [facility] Comment on above: Result Comment: Canc elled via OM: Order cancelled - Patient discharged Performed By: #### L 100.0100, L500.2500 ####[facility] [address] [place], [address] EST GFR Normal >60 [facility] Comment on above: Result Comment: Canc elled via OM: Order cancelled - Patient discharged Performed By: #### L 100.0100, L500.2500 ####[facility] [address] [place], [address] EST GFR - AA Normal >60 [facility] Comment on above: Result Comment: Canc elled via OM: Order cancelled - Patient discharged Performed By: #### L 100.0100, L500.2500 ####[facility] [address] [place], [address] GAP Normal 5-15 [facility] Comment on above: Result Comment: Canc elled via OM: Order cancelled - Patient discharged Performed By: #### L 100.0100, L500.2500 ####[facility] [address] [place], [address] GLU Normal 74-106 [facility] Comment on above: Result Comment: Canc elled via OM: Order cancelled - Patient discharged Performed By: #### L 100.0100, L500.2500 ####[facility] [address] [place], [address] Potassium Normal 3.5-5.1 [facility] Comment on above: Result Comment: Canc elled via OM: Order cancelled - Patient discharged Performed By: #### L 100.0100, L500.2500 ####[facility] [address] [place], [address] Basic Metabolic Profile (BMP) Normal 136-145 [facility] Comment on above: Result Comment: Canc elled via OM: Order cancelled - Patient discharged Performed By: #### L 100.0100, L500.2500 ####[facility] [address] [place], [address] CBC W/Diff, Automatedon 12-1 Absolute Neut Normal 2.0-7.7 [facility] Comment on above: Result Comment: Canc elled via OM: Order cancelled - Patient discharged Performed By: #### L 100.0100, L500.2500 ####[facility] [address] [place], [address] HCT Normal 37-47 [facility] Comment on above: Result Comment: Canc elled via OM: Order cancelled - Patient discharged Performed By: #### L 100.0100, L500.2500 ####[facility] [address] [place], [address] HGB Normal 12.0-15.0 [facility] Comment on above: Result Comment: Canc elled via OM: Order cancelled - Patient discharged Performed By: #### L 100.0100, L500.2500 ####[facility] [address] [place], [address] MCH Normal 27.0-32.0 [facility] Comment on above: Result Comment: Canc elled via OM: Order cancelled - Patient discharged Performed By: #### L 100.0100, L500.2500 ####[facility] [address] [place], [address] MCHC Normal 32-36 [facility] Comment on above: Result Comment: Canc elled via OM: Order cancelled - Patient discharged Performed By: #### L 100.0100, L500.2500 ####[facility] [address] [place], [address] MCV Normal 81-99 [facility] Comment on above: Result Comment: Canc elled via OM: Order cancelled - Patient discharged Performed By: #### L 100.0100, L500.2500 ####[facility] [address] [place], [address] NEUT% Normal 47-70 [facility] Comment on above: Result Comment: Canc elled via OM: Order cancelled - Patient discharged Performed By: #### L 100.0100, L500.2500 ####[facility] [address] [place], [address] PLT Normal 150-450 [facility] Comment on above: Result Comment: Canc elled via OM: Order cancelled - Patient discharged Performed By: #### L 100.0100, L500.2500 ####[facility] [address] [place], [address] RBC Normal 4.2-5.4 [facility] Comment on above: Result Comment: Canc elled via OM: Order cancelled - Patient discharged Performed By: #### L 100.0100, L500.2500 ####[facility] [address] [place], [address] RDW CV Normal 11.6-14.6 [facility] Comment on above: Result Comment: Canc elled via OM: Order cancelled - Patient discharged Performed By: #### L 100.0100, L500.2500 ####[facility] [address] [place], [address] RDW SD Normal 35.1-43.9 [facility] Comment on above: Result Comment: Canc elled via OM: Order cancelled - Patient discharged Performed By: #### L 100.0100, L500.2500 ####[facility] [address] [place], [address] WBC Normal 4.4-11.0 [facility] Comment on above: Result Comment: Canc elled via OM: Order cancelled - Patient discharged Performed By: #### L 100.0100, L500.2500 ####[facility] [address] [place], [address] CNOVon 04-17-2024 CNOV Normal [facility] CNPNon 04-16-2024 CNPN Normal [facility] PT panel Coag (PPP)on 2023 INR Coag (Bld) [Relative time] 5.1 EXT 2.0 - 3.0 [facility] INR resulted on 04/16/2024 at home with [facility]. Aleisha Shaffer RN [facility] Prothrombin Time w/INRon INR Normal [facility] Comment on above: Result Comment: Canc elled via OM: Order cancelled - Patient discharged Performed By: #### L 300.3900 ####[facility] [address] [place], [address] PROTIME Normal 11.7-14.9 [facility] Comment on above: Result Comment: Canc elled via OM: Order cancelled - Patient discharged Performed By: #### L 300.3900 ####[facility] [address] [place], [address] CNPNon 04-13-2024 CNPN Normal [facility] Prothrombin Time w/INRon INR Normal [facility] Comment on above: Result Comment: Canc elled via OM: Order cancelled - Patient discharged Performed By: #### L 300.3900 ####[facility] [address] [place], [address] PROTIME Normal 11.7-14.9 [facility] Comment on above: Result Comment: Canc elled via OM: Order cancelled - Patient discharged Performed By: #### L 300.3900 ####[facility] [address] [place], [address] [facility] 04-11-2024 CNPN Normal [facility] Basic Metabolic Profile (BMP )on 04-10-2024 BUN Normal 7-18 [facility] Comment on above: Result Comment: Canc elled via OM: Order cancelled - Patient discharged Performed By: #### L 100.0100, L500.2500 ####[facility] [address] [place], [address] BUN/CRE Normal 10-20 [facility] Comment on above: Result Comment: Canc elled via OM: Order cancelled - Patient discharged Performed By: #### L 100.0100, L500.2500 ####[facility] [address] [place], [address] CA,Total Normal 8.5-10.1 [facility] Comment on above: Result Comment: Canc elled via OM: Order cancelled - Patient discharged Performed By: #### L 100.0100, L500.2500 ####[facility] [address] [place], [address] CL Normal 98-107 [facility] Comment on above: Result Comment: Canc elled via OM: Order cancelled - Patient discharged Performed By: #### L 100.0100, L500.2500 ####[facility] [address] [place], [address] CO2 Normal 21.0-32.0 [facility] Comment on above: Result Comment: Canc elled via OM: Order cancelled - Patient discharged Performed By: #### L 100.0100, L500.2500 ####[facility] [address] [place], [address] CREAT,SERUM Normal 0.55-1.02 [facility] Comment on above: Result Comment: Canc elled via OM: Order cancelled - Patient discharged Performed By: #### L 100.0100, L500.2500 ####[facility] [address] [place], [address] EST GFR Normal >60 [facility] Comment on above: Result Comment: Canc elled via OM: Order cancelled - Patient discharged Performed By: #### L 100.0100, L500.2500 ####[facility] [address] [place], [address] EST GFR - AA Normal >60 [facility] Comment on above: Result Comment: Canc elled via OM: Order cancelled - Patient discharged Performed By: #### L 100.0100, L500.2500 ####[facility] [address] [place], [address] GAP Normal 5-15 [facility] Comment on above: Result Comment: Canc elled via OM: Order cancelled - Patient discharged Performed By: #### L 100.0100, L500.2500 ####[facility] [address] [place], [address] GLU Normal 74-106 [facility] Comment on above: Result Comment: Canc elled via OM: Order cancelled - Patient discharged Performed By: #### L 100.0100, L500.2500 ####[facility] [address] [place], [address] Potassium Normal 3.5-5.1 [facility] Comment on above: Result Comment: Canc elled via OM: Order cancelled - Patient discharged Performed By: #### L 100.0100, L500.2500 ####[facility] [address] [place], [address] Basic Metabolic Profile (BMP) Normal 136-145 [facility] Comment on above: Result Comment: Canc elled via OM: Order cancelled - Patient discharged Performed By: #### L 100.0100, L500.2500 ####[facility] [address] [place], [address] CBC W/Diff, Automatedon 12-1 0-4 Absolute Neut Normal 2.0-7.7 [facility] Comment on above: Result Comment: Canc elled via OM: Order cancelled - Patient discharged Performed By: #### L 100.0100, L500.2500 ####[facility] [address] [place], [address] HCT Normal 37-47 [facility] Comment on above: Result Comment: Canc elled via OM: Order cancelled - Patient discharged Performed By: #### L 100.0100, L500.2500 ####[facility] [address] [place], [address] HGB Normal 12.0-15.0 [facility] Comment on above: Result Comment: Canc elled via OM: Order cancelled - Patient discharged Performed By: #### L 100.0100, L500.2500 ####[facility] [address] [place], [address] MCH Normal 27.0-32.0 [facility] Comment on above: Result Comment: Canc elled via OM: Order cancelled - Patient discharged Performed By: #### L 100.0100, L500.2500 ####[facility] [address] [place], [address] MCHC Normal 32-36 [facility] Comment on above: Result Comment: Canc elled via OM: Order cancelled - Patient discharged Performed By: #### L 100.0100, L500.2500 ####[facility] [address] [place], [address] MCV Normal 81-99 [facility] Comment on above: Result Comment: Canc elled via OM: Order cancelled - Patient discharged Performed By: #### L 100.0100, L500.2500 ####[facility] [address] [place], [address] NEUT% Normal 47-70 [facility] Comment on above: Result Comment: Canc elled via OM: Order cancelled - Patient discharged Performed By: #### L 100.0100, L500.2500 ####[facility] [address] [place], [address] PLT Normal 150-450 [facility] Comment on above: Result Comment: Canc elled via OM: Order cancelled - Patient discharged Performed By: #### L 100.0100, L500.2500 ####[facility] [address] [place], [address] RBC Normal 4.2-5.4 [facility] Comment on above: Result Comment: Canc elled via OM: Order cancelled - Patient discharged Performed By: #### L 100.0100, L500.2500 ####[facility] [address] [place], [address] RDW CV Normal 11.6-14.6 [facility] Comment on above: Result Comment: Canc elled via OM: Order cancelled - Patient discharged Performed By: #### L 100.0100, L500.2500 ####[facility] [address] [place], [address] RDW SD Normal 35.1-43.9 [facility] Comment on above: Result Comment: Canc elled via OM: Order cancelled - Patient discharged Performed By: #### L 100.0100, L500.2500 ####[facility] [address] [place], [address] WBC Normal 4.4-11.0 [facility] Comment on above: Result Comment: Canc elled via OM: Order cancelled - Patient discharged Performed By: #### L 100.0100, L500.2500 ####[facility] [address] [place], [address] Basic metabolic 2000 panelon 04-09-2024 Anion gap [Moles/Vol] 16 mmol/L High 8-15 [facility] Comment on above: Order Comment: Speci men Type: BLOOD SPECIMENOrdering Facility: [facility] Address: [address] [place] [address] Performed By: #### 2 4325-3, 19450-9 ####[facility] LABCLIA [id number] [place] [address] [place] Calcium [Mass/Vol] 10.3 mg/dL High 8.5-10.2 [facility] Comment on above: Order Comment: Speci men Type: BLOOD SPECIMENOrdering Facility: [facility] Address: [address] [place] [address] Performed By: #### 2 4325-3, 92548-8 ####[facility] LABCLIA [id number] [address] [address] [place] Chloride [Moles/Vol] 103 mmol/L Normal 98-107 [facility] Comment on above: Order Comment: Speci men Type: BLOOD SPECIMENOrdering Facility: [facility] Address: [address] [place] [address] Performed By: #### 2 4325-3, 34555-2 ####[facility] LABIA [id number] [place] [id number] [place] CO2 [Moles/Vol] 18 mmol/L Low 22-30 [facility] Comment on above: Order Comment: Speci men Type: BLOOD SPECIMENOrdering Facility: [facility] Address: [address] [place] [address] Performed By: #### 2 4325-3, 70286-7 ####[facility] LABIA [id number] [place] [address] [place] Creatinine [Mass/Vol] 0.82 mg/dL Normal 0.58-0.96 [facility] Comment on above: Order Comment: Speci men Type: BLOOD SPECIMENOrdering Facility: [facility] Address: [address] [place] [address] Performed By: #### 2 4325-3, 05076-9 ####[facility] LABIA [id number] [place] [address] [place] Creatinine and Glomerular filtration rate.predicted panel (S/P/Bld) 71 mL/min/1.73m??? Normal >=60 [facility] Comment on above: Order Comment: Speci men Type: BLOOD SPECIMENOrdering Facility: [facility] Address: [address] [place] [address] Result Comment: Kimberley mated Glomerular Filtration Rate (eGFR) is calculated using the 2020 CKD-EPI creatinine equation. This equation utilizes serum creatinine, sex, and age as parameters. The creatinine assay has traceable calibration to isotope dilution-mass spectrometry. Refer to KDIGO guidelines for clinical interpretation. In patients with unstable renal function, e.g. those with acute kidney injury, the eGFR may not accurately reflect actual GFR. Performed By: #### 2 3, ####[facility] LABCLIA [id number] [place] [address] [place] Glucose [Mass/Vol] 149 mg/dL High 74-99 [facility] Comment on above: Order Comment: Speci men Type: BLOOD SPECIMENOrdering Facility: [facility] Address: [address] [place] [address] Result Comment: The [place] Diabetes [employer] (ADA) provides guidance for cutoff values for fasting glucose and random glucose. The ADA defines fasting as no caloric intake for at least 8 hours. Fasting plasma glucose results between 100 to 125 mg/dL indicate increased risk for diabetes (prediabetes).Fasting plasma glucose results greater than or equal to 126 mg/dL meet the criteria for diagnosis of diabetes. In the absence of unequivocal hyperglycemia, results should be confirmed by repeat testing. In a patient with classic symptoms of hyperglycemia or hyperglycemic crisis, random plasma glucose results greater than or equal to 200 mg/dL meet the criteria for diagnosis of diabetes.Reference: Standards of Medical Care in Diabetes 2016, [place] [employer] Association. Diabetes Care. 2016.39(Suppl 1). Performed By: #### 2 3, ####[facility] LABIA [id number] [place] [address] [place] Potassium [Moles/Vol] 4.4 mmol/L Normal 3.7-5.1 [facility] Comment on above: Order Comment: Speci men Type: BLOOD SPECIMENOrdering Facility: [facility] Address: [address] [place] [address] Performed By: #### 2 3, 47875-3 ####[facility] LABIA [id number] [place] [address] [place] Sodium [Moles/Vol] 137 mmol/L Normal 136-144 [facility] Comment on above: Order Comment: Speci men Type: BLOOD SPECIMENOrdering Facility: [facility] Address: [address] [place] [address] Performed By: #### 2 3, 63825-8 ####[facility] LABCLIA [id number] [address] [address] [place] Urea nitrogen [Mass/Vol] 27 mg/dL High 7-21 [facility] Comment on above: Order Comment: Speci men Type: BLOOD SPECIMENOrdering Facility: [facility] Address: [address] [place] [address] Performed By: #### 2 4324-3, 10388-5 ####[facility] LABCLIA [id number] [address] [address] [place] CNPNon 04-09-2024 CNPN Normal [facility] Hepatic function 2000 panelo n 04-09-2024 Albumin [Mass/Vol] 4.3 g/dL Normal 3.9-4.9 [facility] Comment on above: Order Comment: Speci men Type: BLOOD SPECIMENOrdering Facility: [facility] Address: [address] [place] [address] Performed By: #### 2 4324-3, 85471-7 ####[facility] LABCLIA [id number] [place] [address] [place] ALP [Catalytic activity/Vol] 89 U/L Normal 34-123 [facility] Comment on above: Order Comment: Speci men Type: BLOOD SPECIMENOrdering Facility: [facility] Address: [address] [place], [place] [address] Performed By: #### 2 4324-3, 40107-2 ####[facility] LABCLIA [id number] [address] [address] [place] ALT [Catalytic activity/Vol] 27 U/L Normal 7-38 [facility] Comment on above: Order Comment: Speci men Type: BLOOD SPECIMENOrdering Facility: [facility] Address: [address] [place], [place] [address] Performed By: #### 2 5-3, 41194-4 ####[facility] LABCLIA [id number] [place] [address] [place] AST [Catalytic activity/Vol] 28 U/L Normal 13-35 [facility] Comment on above: Order Comment: Speci men Type: BLOOD SPECIMENOrdering Facility: [facility] Address: [address] [place] [address] Performed By: #### 2 4325-3, 14666-3 ####[facility] LABCLIA [id number] [place] [address] [place] Bilirubin [Mass/Vol] 0.4 mg/dL Normal 0.2-1.3 [facility] Comment on above: Order Comment: Speci men Type: BLOOD SPECIMENOrdering Facility: [facility] Address: [address] [place] [address] Performed By: #### 2 4325-3, 84426-0 ####[facility] LABIA [id number] [place] [address] [place] Bilirubin.conjugated [Mass/Vol] mg/dL Normal <0.2 [facility] Comment on above: Order Comment: Speci men Type: BLOOD SPECIMENOrdering Facility: [facility] Address: [address] [place] [address] Performed By: #### 2 4325-3, 15062-0 ####[facility] LABCLIA [id number] [place] [address] [place] Protein [Mass/Vol] 8.0 g/dL Normal 6.3-8.0 [facility] Comment on above: Order Comment: Speci men Type: BLOOD SPECIMENOrdering Facility: [facility] Address: [address] [place] [address] Performed By: #### 2 4325-3, 88733-9 ####[facility] LABCLIA [id number] [place] [address] [place] PT panel Coag (PPP)on 2023 INR Coag (PPP) [Relative time] 1.7 {INR} High 0.9-1.3 [facility] Comment on above: Order Comment: Miguel cunningham Type: BLOOD SPECIMENOrdering Facility: [facility] Address: [address] [id number] Result Comment: Geetha min K Antagonist (VKA) Therapeutic Range: INR 2 to 3 (Target INR of 2.5)Note: For patients treated with VKA drugs, such as warfarin, the [employer] 2012 Guideline recommends a therapeutic INR range of 2 to 3 (target INR of 2.5). This recommendation includes high-risk patients with antiphospholipid syndrome with previous arterial or venous thromboembolism, current-generation mechanical or bioprosthetic aortic heart valve replacement.Note: Patients with mechanical aortic valve replacement and additional risk factors for thromboembolic events (atrial fibrillation, previous thromboembolism, LV dysfunction, hypercoagulable conditions) or an older generation mechanical AVR (i.e., ball in-Cage) or any mechanical MVR should have a INR therapeutic range of 2.5 to 3.5 (target INR of 3).Oscar GH, et al. Chest 2012, 141:7S-47SNishimeileen RA, et al. [facility] 2017, 70: 252-289 Performed By: #### 3 4528-0 ####[facility] [id number] [place] [address] [place] PT Coag (PPP) [Time] 17.0 s High <13.1 [facility] Comment on above: Order Comment: Miguel cunningham Type: BLOOD SPECIMENOrdering Facility: [facility] Address: [address] [id number] Performed By: #### 3 4528-0 ####[facility]ENTERWNCLIA [id number] [place] [address] [place] Prothrombin Time w/INRon INR Normal [facility] Comment on above: Result Comment: Canc elled via OM: Order cancelled - Patient discharged Performed By: #### L 300.3904 ####[facility] [address] [place], [address] PROTIME Normal 11.7-14.9 [facility] Comment on above: Result Comment: Canc elled via OM: Order cancelled - Patient discharged Performed By: #### L 300.3900 ####[facility] [address] [place], [address] Bedside Glucoseon 04-08-2024 FINGERSTICK GLU 125 mg/dL High 74-106 [facility] Comment on above: Result Comment: LEVI HYDE OF PATIENT CARE PER NURSING PROTOCOL Performed By: #### L 501.080 ####[facility] [address] [place], [address] [facility] deOrdered By: Jason Smith on 04-08-2024 Bedside Glucose (Misc Panel) 125 mg/dL High [address] [place] [address] Comment on above: MANAGEMENT OF PATIEN T CARE PER NURSING PROTOCOL International normalized rat io (INR) calculationOrdered By: Jason Smith on 04-08-2024 INR Coag (Bld) [Relative time] 1.2 {INR} [facility] Prothrombin Time w/INRon INR Coag (PPP) [Relative time] 1.2 {INR} Normal [facility] Comment on above: Performed By: #### L 300.3900 ####[facility] [address] [place], [address] PT Coag (PPP) [Time] 15.6 s High 11.7-14.9 [facility] Comment on above: Performed By: #### L 300.3900 ####[facility] [address] [place], [address] Prothrombin timeOrdered By: Jason Smith on 04-08-2024 PT Coag (PPP) [Time] 15.6 s High 11.7-14.9 [facility] Bedside Glucoseon 04-07-2024 FINGERSTICK GLU 146 mg/dL High [address] [place] [address] Comment on above: Result Comment: LEVI GEMENT OF PATIENT CARE PER NURSING PROTOCOL Performed By: #### L 501.080 ####[facility] [address] [place], [place], [id number] Bedside Glucoseon 04-06-2024 FINGERSTICK GLU 116 mg/dL High 74-106 [facility] Comment on above: Result Comment: LEVI GEMENT OF PATIENT CARE PER NURSING PROTOCOL Performed By: #### L 501.080 ####[facility] [address] [place], [address] CNPTOUTREACHon 04-06-2024 CNPTOUTREACH Normal [facility] Absolute neutrophil countOrd ered By: Jason Smith on 04-05-2024 Neutrophils (Bld) [#/Vol] 4.1 10*3/uL 2.0-7.7 [facility] Basophil percentageOrdered B y: Jason Smith on 04-05-2024 Basophils/100 WBC (Bld) 0.8 % 0-1 [facility] Bedside Glucoseon 04-05-2024 FINGERSTICK GLU 110 mg/dL High 74-106 [facility] Comment on above: Result Comment: LEVI GEMENT OF PATIENT CARE PER NURSING PROTOCOL Performed By: #### L 501.080 ####[facility] [address] [place], [address] CBC W/Diff, Automatedon 12 Absolute Lymph 1.39 X10 3/uL Normal 0.83-4.51 [facility] Comment on above: Performed By: #### L 100.0100 ####[facility] [address] [place], [address] Absolute Neut 4.1 X10 3/uL Normal 2.0-7.7 [facility] Comment on above: Performed By: #### L 100.0100 ####[facility] [address] [place], [address] Basophils/100 WBC (Bld) 0.8 % Normal 0-1 [facility] Comment on above: Performed By: #### L 100.0100 ####[facility] [address] [place], [address] Eosinophils/100 WBC (Bld) 2.7 % Normal 0-5 [facility] Comment on above: Performed By: #### L 100.0100 ####[facility] [address] [place], [address] Erythrocyte distribution width (RBC) [Ratio] 16.3 % High 11.6-14.6 [facility] Comment on above: Performed By: #### L 100.0100 ####[facility] [address] [place], [address] Hematocrit (Bld) [Volume fraction] 39.1 % Normal 37-47 [facility] Comment on above: Performed By: #### L 100.0100 ####[facility] [address] [place], [address] Hemoglobin (Bld) [Mass/Vol] 12.3 g/dL Normal 12.0-15.0 [facility] Comment on above: Performed By: #### L 100.0100 ####[facility] [address] [place], [address] IG% 0.300 Normal 0.0-0.9 [facility] Comment on above: Result Comment: IG% - Immature Granulocytes (promyelocytes, myelocytes andmetamyelocytes) > 1% indicates that a LEFT SHIFT is Present. Performed By: #### L 100.0100 ####[facility] [address] [place], [address] Lymphocytes/100 WBC (Bld) 21.1 % Normal 19-41 [facility] Comment on above: Performed By: #### L 100.0100 ####[facility] [address] [place], [address] MCH (RBC) [Entitic mass] 28.8 pg Normal 27.0-32.0 [facility] Comment on above: Performed By: #### L 100.0100 ####[facility] [address] [place], [address] MCHC (RBC) [Mass/Vol] 31.5 g/dL Low 32-36 [facility] Comment on above: Performed By: #### L 100.0100 ####[facility] [address] [place], [address] MCV (RBC) [Entitic vol] 91.6 fL Normal 81-99 [facility] Comment on above: Performed By: #### L 100.0100 ####[facility] [address] [place], [address] Monocytes/100 WBC (Bld) 12.6 % High 0-10 [facility] Comment on above: Performed By: #### L 100.0100 ####[facility] [address] [place], [address] Neutrophils/100 WBC (Bld) 62.5 % Normal 47-70 [facility] Comment on above: Performed By: #### L 100.0100 ####[facility] [address] [place], [address] Nucleated RBC (Bld) [#/Vol] 0 10*3/uL Normal 0-5 [facility] Comment on above: Performed By: #### L 100.0100 ####[facility] [address] [place], [address] Platelet mean volume (Bld) [Entitic vol] 9.2 fL Normal 6.2-12.0 [facility] Comment on above: Performed By: #### L 100.0100 ####[facility] [address] [place], [address] Platelets (Bld) [#/Vol] 307 10*3/uL Normal 150-450 [facility] Comment on above: Performed By: #### L 100.0100 ####[facility] [address] [place], [address] RBC (Bld) [#/Vol] 4.27 10*6/uL Normal 4.2-5.4 [facility] Comment on above: Performed By: #### L 100.0100 ####[facility] [address] [place], [address] RDW SD 54.7 fl High 35.1-43.9 [facility] Comment on above: Performed By: #### L 100.0100 ####[facility] [address] [place], [address] WBC (Bld) [#/Vol] 6.6 10*3/uL Normal 4.4-11.0 [facility] Comment on above: Performed By: #### L 100.0100 ####[facility] [address] [place], [address] CNPNon 04-05-2024 CNPN Normal [facility] Eosinophil percentageOrdered By: Jason Smith on 04-05-2024 Eosinophils/100 WBC (Bld) 2.7 % 0-5 [facility] Erythrocyte distribution wid th ratioOrdered By: Jason Pavonok on 04-05-2024 Erythrocyte distribution width (RBC) [Ratio] 16.3 % High 11.6-14.6 [facility] Erythrocyte distribution wid th standard deviationOrdered By: Jason Pavonok on 04-05-2024 Erythrocyte distribution width (RBC) [Entitic vol] 54.7 fL High 35.1-43.9 [facility] Hematocrit Auto (Bld) [Volum e fraction]Ordered By: Jason Smith on 04-05-2024 Hematocrit (Bld) [Volume fraction] 39.1 % 37-47 [facility] Hemoglobin measurementOrdere d By: Jason Smith on 04-05-2024 Hemoglobin (Bld) [Mass/Vol] 12.3 g/dL 12.0-15.0 [facility] Immature granulocytes/100 WB C Auto (Bld)Ordered By: Jason Smith on 04-05-2024 Immature granulocytes/100 WBC (Bld) 0.300 % 0.0-0.9 [facility] Comment on above: IG% - Immature Granu locytes (promyelocytes, myelocytes and metamyelocytes) > 1% indicates that a LEFT SHIFT is Present. Lymphocytes Auto (Unsp spec) [#/Vol]Ordered By: Jason Smith on 04-05-2024 Lymphocytes (Bld) [#/Vol] 1.39 10*3/uL 0.83-4.51 [facility] Lymphocytes/100 WBC Auto (Un sp spec)Ordered By: Jason Smith on 04-05-2024 Lymphocytes/100 WBC (Bld) 21.1 % 19-41 [facility] MCV (mean corpuscular volume ) determinationOrdered By: Jason Smith on 04-05-2024 MCV (RBC) [Entitic vol] 91.6 fL 81-99 [facility] Mean corpuscular hemoglobin (MCH) determinationOrdered By: Jason Smith on 04-05-2024 MCH (RBC) [Entitic mass] 28.8 pg 27.0-32.0 [facility] Mean corpuscular hemoglobin concentration (MCHC) determinationOrdered By: Jason Smith on 04-05-2024 MCHC (RBC) [Mass/Vol] 31.5 g/dL Low 32-36 [facility] Mean platelet volume determi nationOrdered By: Jason Smith on 04-05-2024 Platelet mean volume (Bld) [Entitic vol] 9.2 fL 6.2-12.0 [facility] Monocyte percentageOrdered B y: Jason Smith on 04-05-2024 Monocytes/100 WBC (Bld) 12.6 % High 0-10 [facility] Neutrophil percentageOrdered By: Jason Smith on 04-05-2024 Neutrophils/100 WBC (Bld) 62.5 % 47-70 [facility] Nucleated red blood cell per centageOrdered By: Jason Smith on 04-05-2024 Nucleated RBC/100 WBC (Bld) [Ratio] 0 % 0-5 [facility] Platelet countOrdered By: Parth Smith on 04-05-2024 Platelets (Bld) [#/Vol] 307 10*3/uL 150-450 [facility] Prothrombin Time w/INRon INR Coag (PPP) [Relative time] 1.1 {INR} Normal [facility] Comment on above: Performed By: #### L 300.3900 ####[facility] [address] [facility] [address] PT Coag (PPP) [Time] 14.1 s Normal 11.7-14.9 [facility] Comment on above: Performed By: #### L 300.3900 ####[facility] [address] [place], [address] RBC Auto (Bld) [#/Vol]Ordere d By: Jason Smith on 04-05-2024 RBC (Bld) [#/Vol] 4.27 10*6/uL 4.2-5.4 [facility] White blood cell (WBC) count Ordered By: Jason Smith on 04-05-2024 WBC (Bld) [#/Vol] 6.6 10*3/uL 4.4-11.0 [facility] Bedside Glucoseon 04-04-2024 FINGERSTICK GLU 131 mg/dL High 74-106 [facility] Comment on above: Result Comment: LEVI GEMENT OF PATIENT CARE PER NURSING PROTOCOL Performed By: #### L 501.080 ####[facility] [address] [place], [address] FINGERSTICK GLU 109 mg/dL High 74-106 [facility] Comment on above: Result Comment: LEVI GEMENT OF PATIENT CARE PER NURSING PROTOCOL Performed By: #### L 501.080 ####[facility] [address] [place], [address] EGD Reporton 04-04-2024 EGD Report Normal [facility] deOrdered By: Robb Giron on 04-04-2024 Bedside Glucose (Misc Panel) 131 mg/dL High 74-106 [facility] Comment on above: MANAGEMENT OF PATIEN T CARE PER NURSING PROTOCOL H Pylori (initial)on 024 H Pylori (initial) Normal [facility] Comment on above: Performed By: #### P H.PYLORI ####[facility] [address] [place], [address] MR/POSTOP.ANEon 04-04-2024 MR/POSTOP.ANE Normal [facility] MR/UGEMUBBC0zc 04-04-2024 MR/POSTOPAN2 Normal [facility] Surgery Specimen Level Aj 04-04-2024 Surgery Specimen Level IV Normal [facility] Comment on above: Performed By: #### P SUIV ####[facility] [address] [place], [address] Basic Metabolic Profile (BMP )on 04-03-2024 BUN/CRE 43.0 RATIO High 10-20 [facility] Comment on above: Performed By: #### L 100.0100, L500.2500 ####[facility] [address] [place], [address] CA,Total 9.4 mg/dL Normal 8.5-10.1 [facility] Comment on above: Performed By: #### L 100.0100, L500.2500 ####[facility] [address] [place], [address] Chloride [Moles/Vol] 108 mmol/L High 98-107 [facility] Comment on above: Performed By: #### L 100.0100, L500.2500 ####[facility] [address] [place], [address] CO2 [Moles/Vol] 23.0 mmol/L Normal 21.0-32.0 [facility] Comment on above: Performed By: #### L 100.0100, L500.2500 ####[facility] [address] [place], [address] Creatinine [Mass/Vol] 0.77 mg/dL Normal 0.55-1.02 [facility] Comment on above: Result Comment: The validity of the calculated GFR GFRAA in patients over70 years has not been determined. Clinical correlation isessential. Performed By: #### L 100.0100, L500.2500 ####[facility] [address] [place], [address] ECRCL 46.93 ml/min Normal [facility] Comment on above: Performed By: #### L 100.0100, L500.2500 ####[facility] [address] [place], [address] EST GFR - AA 92 mL/min Normal >60 [facility] Comment on above: Result Comment: Afri can Portuguese GFR Calc Performed By: #### L 100.0100, L500.2500 ####[facility] [address] [place], [address] GAP 7 Normal 5-15 [facility] Comment on above: Performed By: #### L 100.0100, L500.2500 ####[facility] [address] [place], [address] GFR/1.73 sq M.predicted among non-blacks MDRD (S/P/Bld) [Vol rate/Area] 76 mL/min/{1.73_m2} Normal >60 [facility] Comment on above: Result Comment: Non- GFR Calc Performed By: #### L 100.0100, L500.2500 ####[facility] [address] [place], [address] Glucose [Mass/Vol] 89 mg/dL Normal 74-106 [facility] Comment on above: Performed By: #### L 100.0100, L500.2500 ####[facility] [address] [place], [address] Potassium [Moles/Vol] 3.6 mmol/L Normal 3.5-5.1 [facility] Comment on above: Performed By: #### L 100.0100, L500.2500 ####[facility] [address] [place], [address] Sodium [Moles/Vol] 138 mmol/L Normal 136-145 [facility] Comment on above: Performed By: #### L 100.0100, L500.2500 ####[facility] [address] [place], [address] Urea nitrogen [Mass/Vol] 33 mg/dL High 7-18 [facility] Comment on above: Performed By: #### L 100.0100, L500.2500 ####[facility] [address] [place], [address] Bedside Glucoseon 04-03-2024 FINGERSTICK GLU 98 mg/dL Normal 74-106 [facility] Comment on above: Result Comment: LEVI HYDE OF PATIENT CARE PER NURSING PROTOCOL Performed By: #### L 501.080 ####[facility] [address] [place], [address] Blood urea nitrogen (BUN)/cr eatinine ratioOrdered By: Jason Smith on 04-03-2024 Urea nitrogen/Creatinine [Mass ratio] 43.0 mg/mg High 10-20 [facility] CBC W/Diff, Automatedon 12-0 Absolute Lymph 1.62 X10 3/uL Normal 0.83-4.51 [facility] Comment on above: Performed By: #### L 100.0100, L500.2500 ####[facility] [address] [place], [address] Absolute Neut 2.6 X10 3/uL Normal 2.0-7.7 [facility] Comment on above: Performed By: #### L 100.0100, L500.2500 ####[facility] [address] [place], [address] Basophils/100 WBC (Bld) 1.1 % High 0-1 [facility] Comment on above: Performed By: #### L 100.0100, L500.2500 ####[facility] [address] [place], [address] Eosinophils/100 WBC (Bld) 3.9 % Normal 0-5 [facility] Comment on above: Performed By: #### L 100.0100, L500.2500 ####[facility] [address] [place], [address] Erythrocyte distribution width (RBC) [Ratio] 16.4 % High 11.6-14.6 [facility] Comment on above: Performed By: #### L 100.0100, L500.2500 ####[facility] [address] [place], [address] Hematocrit (Bld) [Volume fraction] 37.7 % Normal 37-47 [facility] Comment on above: Performed By: #### L 100.0100, L500.2500 ####[facility] [address] [place], [address] Hemoglobin (Bld) [Mass/Vol] 12.0 g/dL Normal 12.0-15.0 [facility] Comment on above: Performed By: #### L 100.0100, L500.2500 ####[facility] [address] [place], [address] IG% 0.400 Normal 0.0-0.9 [facility] Comment on above: Result Comment: IG% - Immature Granulocytes (promyelocytes, myelocytes andmetamyelocytes) > 1% indicates that a LEFT SHIFT is Present. Performed By: #### L 100.0100, L500.2500 ####[facility] [address] [place], [address] Lymphocytes/100 WBC (Bld) 30.2 % Normal 19-41 [facility] Comment on above: Performed By: #### L 100.0100, L500.2500 ####[facility] [address] [place], [address] MCH (RBC) [Entitic mass] 28.9 pg Normal 27.0-32.0 [facility] Comment on above: Performed By: #### L 100.0100, L500.2500 ####[facility] [address] [place], [address] MCHC (RBC) [Mass/Vol] 31.8 g/dL Low 32-36 [facility] Comment on above: Performed By: #### L 100.0100, L500.2500 ####[facility] [address] [place], [address] MCV (RBC) [Entitic vol] 90.8 fL Normal 81-99 [facility] Comment on above: Performed By: #### L 100.0100, L500.2500 ####[facility] [address] [place], [address] Monocytes/100 WBC (Bld) 15.9 % High 0-10 [facility] Comment on above: Performed By: #### L 100.0100, L500.2500 ####[facility] [address] [place], [address] Neutrophils/100 WBC (Bld) 48.5 % Normal 47-70 [facility] Comment on above: Performed By: #### L 100.0100, L500.2500 ####[facility] [address] [place], [address] Nucleated RBC (Bld) [#/Vol] 0 10*3/uL Normal 0-5 [facility] Comment on above: Performed By: #### L 100.0100, L500.2500 ####[facility] [address] [place], [address] Platelet mean volume (Bld) [Entitic vol] 8.9 fL Normal 6.2-12.0 [facility] Comment on above: Performed By: #### L 100.0100, L500.2500 ####[facility] [address] [place], [address] Platelets (Bld) [#/Vol] 361 10*3/uL Normal 150-450 [facility] Comment on above: Performed By: #### L 100.0100, L500.2500 ####[facility] [address] [place], [address] RBC (Bld) [#/Vol] 4.15 10*6/uL Low 4.2-5.4 [facility] Comment on above: Performed By: #### L 100.0100, L500.2500 ####[facility] [address] [place], [address] RDW SD 54.6 fl High 35.1-43.9 [facility] Comment on above: Performed By: #### L 100.0100, L500.2500 ####[facility] [address] [place], [address] WBC (Bld) [#/Vol] 5.4 10*3/uL Normal 4.4-11.0 [facility] Comment on above: Performed By: #### L 100.0100, L500.2500 ####[facility] [address] [place], [address] Carbon dioxide measurementOr dered By: Jason Smith on 04-03-2024 CO2 [Moles/Vol] 23.0 mmol/L 21.0-32.0 [facility] Chloride measurementOrdered By: Jason Smith on 04-03-2024 Chloride [Moles/Vol] 108 mmol/L High 98-107 [facility] Estimated glomerular filtrat ion rate (GFR) AmericanOrdered By: Jason Smith on 04-03-2024 Estimated GFR (MDRD) Amer 92 mL/min >60 [facility] Comment on above: GFR Calc Estimation of creatinine noelle aranceOrdered By: Jason Smith on 04-03-2024 Estimated Creatinine Clearance Calc 46.93 ml/min [facility] Glomerular filtration rate ( GFR) estimationOrdered By: Jason Smith on 04-03-2024 Estimated GFR (MDRD) Non-Af Amer 76 mL/min >60 [facility] Comment on above: Non- GFR Calc Glucose measurementOrdered B y: Jason Smith on 04-03-2024 Glucose [Mass/Vol] 89 mg/dL 74-106 [facility] Potassium measurementOrdered By: Jason Smith on 04-03-2024 Potassium [Moles/Vol] 3.6 mmol/L 3.5-5.1 [facility] Serum anion gap measurementO rdered By: Jason Smith on 04-03-2024 Anion gap [Moles/Vol] 7 mmol/L 5-15 [facility] Serum or plasma calcium walker urement (mass/volume)Ordered By: Jason Smith on 04-03-2024 Calcium [Mass/Vol] 9.4 mg/dL 8.5-10.1 [facility] Serum or plasma creatinine m easurement (mass/volume)Ordered By: Jason Smith on 04-03-2024 Creatinine [Mass/Vol] 0.77 mg/dL 0.55-1.02 [facility] Comment on above: The validity of the calculated GFR & GFRAA in patients over 70 years has not been determined. Clinical correlation is essential. Serum or plasma urea nitroge n measurement (mass/volume)Ordered By: Jason Smith on 04-03-2024 Urea nitrogen [Mass/Vol] 33 mg/dL High 7-18 [facility] Sodium levelOrdered By: Jason Smith on 04-03-2024 Sodium [Moles/Vol] 138 mmol/L 136-145 [facility] Bedside Glucoseon 04-02-2024 FINGERSTICK GLU 114 mg/dL High 74-106 [facility] Comment on above: Result Comment: LEVI HYDE OF PATIENT CARE PER NURSING PROTOCOL Performed By: #### L 501.080 ####[facility] [address] [place], [address] CBC W/Diff, Automatedon 12-0 2-2023 Absolute Lymph 1.45 X10 3/uL Normal 0.83-4.51 [facility] Comment on above: Performed By: #### L 100.0100 ####[facility] [address] [place], [address] Absolute Neut 2.8 X10 3/uL Normal 2.0-7.7 [facility] Comment on above: Performed By: #### L 100.0100 ####[facility] [address] [place], [address] Basophils/100 WBC (Bld) 0.9 % Normal 0-1 [facility] Comment on above: Performed By: #### L 100.0100 ####[facility] [address] [place], [address] Eosinophils/100 WBC (Bld) 3.5 % Normal 0-5 [facility] Comment on above: Performed By: #### L 100.0100 ####[facility] [address] [place], [address] Erythrocyte distribution width (RBC) [Ratio] 16.4 % High 11.6-14.6 [facility] Comment on above: Performed By: #### L 100.0100 ####[facility] [address] [place], [address] Hematocrit (Bld) [Volume fraction] 37.0 % Normal 37-47 [facility] Comment on above: Performed By: #### L 100.0100 ####[facility] [address] [place], [address] Hemoglobin (Bld) [Mass/Vol] 11.9 g/dL Low 12.0-15.0 [facility] Comment on above: Performed By: #### L 100.0100 ####[facility] [address] [place], [address] IG% 0.400 Normal 0.0-0.9 [facility] Comment on above: Result Comment: IG% - Immature Granulocytes (promyelocytes, myelocytes andmetamyelocytes) > 1% indicates that a LEFT SHIFT is Present. Performed By: #### L 100.0100 ####[facility] [address] [place], [address] Lymphocytes/100 WBC (Bld) 27.1 % Normal 19-41 [facility] Comment on above: Performed By: #### L 100.0100 ####[facility] [address] [place], [address] MCH (RBC) [Entitic mass] 29.4 pg Normal 27.0-32.0 [facility] Comment on above: Performed By: #### L 100.0100 ####[facility] [address] [place], [address] MCHC (RBC) [Mass/Vol] 32.2 g/dL Normal 32-36 [facility] Comment on above: Performed By: #### L 100.0100 ####[facility] [address] [place], [address] MCV (RBC) [Entitic vol] 91.4 fL Normal 81-99 [facility] Comment on above: Performed By: #### L 100.0100 ####[facility] [address] [place], [address] Monocytes/100 WBC (Bld) 15.9 % High 0-10 [facility] Comment on above: Performed By: #### L 100.0100 ####[facility] [address] [place], [address] Neutrophils/100 WBC (Bld) 52.2 % Normal 47-70 [facility] Comment on above: Performed By: #### L 100.0100 ####[facility] [address] [place], [address] Nucleated RBC (Bld) [#/Vol] 0.4 10*3/uL Normal 0-5 [facility] Comment on above: Performed By: #### L 100.0100 ####[facility] [address] [place], [address] Platelet mean volume (Bld) [Entitic vol] 9.1 fL Normal 6.2-12.0 [facility] Comment on above: Performed By: #### L 100.0100 ####[facility] [address] [place], [address] Platelets (Bld) [#/Vol] 386 10*3/uL Normal 150-450 [facility] Comment on above: Performed By: #### L 100.0100 ####[facility] [address] [place], [address] RBC (Bld) [#/Vol] 4.05 10*6/uL Low 4.2-5.4 [facility] Comment on above: Performed By: #### L 100.0100 ####[facility] [address] [place], [address] RDW SD 55.0 fl High 35.1-43.9 [facility] Comment on above: Performed By: #### L 100.0100 ####[facility] [address] [place], [address] WBC (Bld) [#/Vol] 5.4 10*3/uL Normal 4.4-11.0 [facility] Comment on above: Performed By: #### L 100.0100 ####[facility] [address] [place], [address] COVID 19 AG RAPID (RN COLLESteven T)on 04-02-2024 SARS-CoV-2 (COVID-19) RNA MARCOS+probe Ql (Unsp spec) Normal [facility] Comment on above: Performed By: #### M 100.505 ####[facility] [address] [place], [address] MR/CON.PCM.GIon 04-02-2024 MR/CON.PCM.GI Normal [facility] Prothrombin Time w/INRon INR Coag (PPP) [Relative time] 1.1 {INR} Normal [facility] Comment on above: Performed By: #### L 300.3900 ####[facility] [address] [place], [address] PT Coag (PPP) [Time] 14.2 s Normal 11.7-14.9 [facility] Comment on above: Performed By: #### L 300.3900 ####[facility] [address] [place], [address] SARS-CoV-2 (COVID-19) Ag IA. rapid Ql (Resp)Ordered By: Jason Smith on 04-02-2024 SARS-CoV-2 Antigen (Rapid) [facility] Bedside Glucoseon 04-01-2024 FINGERSTICK GLU 106 mg/dL Normal 74-106 [facility] Comment on above: Result Comment: LEVI GEMENT OF PATIENT CARE PER NURSING PROTOCOL Performed By: #### L 501.080 ####[facility] [address] [place], [address] Bedside Glucoseon 03-31-2024 FINGERSTICK GLU 109 mg/dL High 74-106 [facility] Comment on above: Result Comment: LEVI GEMENT OF PATIENT CARE PER NURSING PROTOCOL Performed By: #### L 501.080 ####[facility] [address] [place], [address] Bedside Glucoseon 03-30-2024 FINGERSTICK GLU 142 mg/dL High 74-106 [facility] Comment on above: Result Comment: LEVI GEMENT OF PATIENT CARE PER NURSING PROTOCOL Performed By: #### L 501.080 ####[facility] [address] [place], [address] Bedside Glucoseon 03-29-2024 FINGERSTICK GLU 107 mg/dL High 74-106 [facility] Comment on above: Result Comment: LEVI GEMENT OF PATIENT CARE PER NURSING PROTOCOL Performed By: #### L 501.080 ####[facility] [address] [place], [address] Prothrombin Time w/INRon INR Coag (PPP) [Relative time] 2.4 {INR} Normal [facility] Comment on above: Performed By: #### L 300.3900 ####[facility] [address] [place], [address] PT Coag (PPP) [Time] 26.2 s High 11.7-14.9 [facility] Comment on above: Performed By: #### L 300.3900 ####[facility] [address] [place], [address] Bedside Glucoseon 03-28-2024 FINGERSTICK GLU 106 mg/dL Normal 74-106 [facility] Comment on above: Result Comment: LEVI GEMENT OF PATIENT CARE PER NURSING PROTOCOL Performed By: #### L 501.080 ####[facility] [address] [place], [address] Lower GI hemoglobin IA Ql (S tl)Ordered By: Jason Smith on 03-28-2024 Stool Occult Blood (LATANYA) Positive Abnormal [facility] Stool Occult Blood iFOBon STOB Positive Normal [facility] Comment on above: Performed By: #### M 100.7900 ####[facility] [address] [place], [address] BRCon 03-27-2024 RC Normal [facility] Comment on above: Result Comment: [id number] AP RC TRANSFUSED 03/27/24 [id number] AP RC TRANSFUSED 03/27/24 1543 Performed By: #### B , MALLORY ####[facility] [address] [place], [address] Basic Metabolic Profile (BMP )on 03-27-2024 BUN/CRE 46.6 RATIO High 10-20 [facility] Comment on above: Performed By: #### L 500.2500, L100.0100 ####[facility] [address] [place], [address] CA,Total 8.9 mg/dL Normal 8.5-10.1 [facility] Comment on above: Performed By: #### L 500.2500, L100.0100 ####[facility] [address] [place], [address] Chloride [Moles/Vol] 109 mmol/L High 98-107 [facility] Comment on above: Performed By: #### L 500.2500, L100.0100 ####[facility] [address] [place], [address] CO2 [Moles/Vol] 20.0 mmol/L Low 21.0-32.0 [facility] Comment on above: Performed By: #### L 500.2500, L100.0100 ####[facility] [address] [place], [address] Creatinine [Mass/Vol] 0.88 mg/dL Normal 0.55-1.02 [facility] Comment on above: Result Comment: The validity of the calculated GFR GFRAA in patients over70 years has not been determined. Clinical correlation isessential. Performed By: #### L 500.2500, L100.0100 ####[facility] [address] [place], [address] ECRCL 43.30 ml/min Normal [facility] Comment on above: Performed By: #### L 500.2500, L100.0100 ####[facility] [address] [place], [address] EST GFR - AA 79 mL/min Normal >60 [facility] Comment on above: Result Comment: Afri can Portuguese GFR Calc Performed By: #### L 500.2500, L100.0100 ####[facility] [address] [place], [address] GAP 7 Normal 5-15 [facility] Comment on above: Performed By: #### L 500.2500, L100.0100 ####[facility] [address] [place], [address] GFR/1.73 sq M.predicted among non-blacks MDRD (S/P/Bld) [Vol rate/Area] 65 mL/min/{1.73_m2} Normal >60 [facility] Comment on above: Result Comment: Non- GFR Calc Performed By: #### L 500.2500, L100.0100 ####[facility] [address] [place], [address] Glucose [Mass/Vol] 135 mg/dL High 74-106 [facility] Comment on above: Result Comment: Fast ing Glucose result greater than or equal to 126 mg/dLsuggests DIABETES MELLITUS per A.D.A. criteria. Performed By: #### L 500.2500, L100.0100 ####[facility] [address] [place], [address] Potassium [Moles/Vol] 4.2 mmol/L Normal 3.5-5.1 [facility] Comment on above: Performed By: #### L 500.2500, L100.0100 ####[facility] [address] [place], [address] Sodium [Moles/Vol] 136 mmol/L Normal 136-145 [facility] Comment on above: Performed By: #### L 500.2500, L100.0100 ####[facility] [address] [place], [address] Urea nitrogen [Mass/Vol] 41 mg/dL High 7-18 [facility] Comment on above: Performed By: #### L 500.2500, L100.0100 ####[facility] [address] [place], [address] Bedside Glucoseon 03-27-2024 FINGERSTICK GLU 122 mg/dL High 74-106 [facility] Comment on above: Result Comment: LEVI HYDE OF PATIENT CARE PER NURSING PROTOCOL Performed By: #### L 501.080 ####[facility] [address] [place], [address] CBC W/Diff, Automatedon 03-03 Absolute Lymph 1.35 X10 3/uL Normal 0.83-4.51 [facility] Comment on above: Performed By: #### L 500.2500, L100.0100 ####[facility] [address] [place], [address] Absolute Neut 4.3 X10 3/uL Normal 2.0-7.7 [facility] Comment on above: Performed By: #### L 500.2500, L100.0100 ####[facility] [address] [place], [address] Basophils/100 WBC (Bld) 0.6 % Normal 0-1 [facility] Comment on above: Performed By: #### L 500.2500, L100.0100 ####[facility] [address] [place], [address] Eosinophils/100 WBC (Bld) 1.8 % Normal 0-5 [facility] Comment on above: Performed By: #### L 500.2500, L100.0100 ####[facility] [address] [place], [address] Erythrocyte distribution width (RBC) [Ratio] 18.0 % High 11.6-14.6 [facility] Comment on above: Performed By: #### L 500.2500, L100.0100 ####[facility] [address] [place], [address] Hematocrit (Bld) [Volume fraction] 25.2 % Low 37-47 [facility] Comment on above: Performed By: #### L 500.2500, L100.0100 ####[facility] [address] [place], [address] Hemoglobin (Bld) [Mass/Vol] 7.8 g/dL Low 12.0-15.0 [facility] Comment on above: Performed By: #### L 500.2500, L100.0100 ####[facility] [address] [place], [address] IG% 0.500 Normal 0.0-0.9 [facility] Comment on above: Result Comment: IG% - Immature Granulocytes (promyelocytes, myelocytes andmetamyelocytes) > 1% indicates that a LEFT SHIFT is Present. Performed By: #### L 500.2500, L100.0100 ####[facility] [address] [place], [address] Lymphocytes/100 WBC (Bld) 20.7 % Normal 19-41 [facility] Comment on above: Performed By: #### L 500.2500, L100.0100 ####[facility] [address] [place], [address] MCH (RBC) [Entitic mass] 29.7 pg Normal 27.0-32.0 [facility] Comment on above: Performed By: #### L 500.2500, L100.0100 ####[facility] [address] [place], [address] MCHC (RBC) [Mass/Vol] 31.0 g/dL Low 32-36 [facility] Comment on above: Performed By: #### L 500.2500, L100.0100 ####[facility] [address] [place], [address] MCV (RBC) [Entitic vol] 95.8 fL Normal 81-99 [facility] Comment on above: Performed By: #### L 500.2500, L100.0100 ####[facility] [address] [place], [address] Monocytes/100 WBC (Bld) 10.1 % High 0-10 [facility] Comment on above: Performed By: #### L 500.2500, L100.0100 ####[facility] [address] [place], [address] Neutrophils/100 WBC (Bld) 66.3 % Normal 47-70 [facility] Comment on above: Performed By: #### L 500.2500, L100.0100 ####[facility] [address] [place], [address] Nucleated RBC (Bld) [#/Vol] 0.8 10*3/uL Normal 0-5 [facility] Comment on above: Performed By: #### L 500.2500, L100.0100 ####[facility] [address] [place], [address] Platelet mean volume (Bld) [Entitic vol] 9.3 fL Normal 6.2-12.0 [facility] Comment on above: Performed By: #### L 500.2500, L100.0100 ####[facility] [address] [place], [address] Platelets (Bld) [#/Vol] 439 10*3/uL Normal 150-450 [facility] Comment on above: Performed By: #### L 500.2500, L100.0100 ####[facility] [address] [place], [address] RBC (Bld) [#/Vol] 2.63 10*6/uL Low 4.2-5.4 [facility] Comment on above: Performed By: #### L 500.2500, L100.0100 ####[facility] [address] [place], [address] RDW SD 61.6 fl High 35.1-43.9 [facility] Comment on above: Performed By: #### L 500.2500, L100.0100 ####[facility] [address] [place], [address] WBC (Bld) [#/Vol] 6.5 10*3/uL Normal 4.4-11.0 [facility] Comment on above: Performed By: #### L 500.2500, L100.0100 ####[facility] [address] [place], [address] Type AND Screenon 03-27-2024 ABO and Rh group Nom (Bld) Blood group A Rh(D) positive Normal [facility] Comment on above: Order Comment: CMV N EG? NNumber of units to transfuse: 2Comments: right transmetatarsal amputationReason for Ordering Blood: AcuteAre the blood/blood products to be transfused? YIs the patient having/had surgery? YNWhen [id number] Performed By: #### B TS, BRC ####[facility] [address] [place], [address] Basic Metabolic Profile (BMP )on 03-26-2024 BUN Normal 7-18 [facility] Comment on above: Result Comment: Canc elled via OM: Order cancelled - Patient discharged Performed By: #### L 500.2500, L100.0100 ####[facility] [address] [place], [address] BUN/CRE Normal 10-20 [facility] Comment on above: Result Comment: Canc elled via OM: Order cancelled - Patient discharged Performed By: #### L 500.2500, L100.0100 ####[facility] [address] [place], [address] CA,Total Normal 8.5-10.1 [facility] Comment on above: Result Comment: Canc elled via OM: Order cancelled - Patient discharged Performed By: #### L 500.2500, L100.0100 ####[facility] [address] [place], [address] CL Normal 98-107 [facility] Comment on above: Result Comment: Canc elled via OM: Order cancelled - Patient discharged Performed By: #### L 500.2500, L100.0100 ####[facility] [address] [place], [address] CO2 Normal 21.0-32.0 [facility] Comment on above: Result Comment: Canc elled via OM: Order cancelled - Patient discharged Performed By: #### L 500.2500, L100.0100 ####[facility] [address] [place], [address] CREAT,SERUM Normal 0.55-1.02 [facility] Comment on above: Result Comment: Canc elled via OM: Order cancelled - Patient discharged Performed By: #### L 500.2500, L100.0100 ####[facility] [address] [place], [address] EST GFR Normal >60 [facility] Comment on above: Result Comment: Canc elled via OM: Order cancelled - Patient discharged Performed By: #### L 500.2500, L100.0100 ####[facility] [address] [place], [address] EST GFR - AA Normal >60 [facility] Comment on above: Result Comment: Canc elled via OM: Order cancelled - Patient discharged Performed By: #### L 500.2500, L100.0100 ####[facility] [address] [place], [address] GAP Normal 5-15 [facility] Comment on above: Result Comment: Canc elled via OM: Order cancelled - Patient discharged Performed By: #### L 500.2500, L100.0100 ####[facility] [address] [place], [address] GLU Normal 74-106 [facility] Comment on above: Result Comment: Canc elled via OM: Order cancelled - Patient discharged Performed By: #### L 500.2500, L100.0100 ####[facility] [address] [place], [address] Potassium Normal 3.5-5.1 [facility] Comment on above: Result Comment: Canc elled via OM: Order cancelled - Patient discharged Performed By: #### L 500.2500, L100.0100 ####[facility] [address] [place], [address] Basic Metabolic Profile (BMP) Normal 136-145 [facility] Comment on above: Result Comment: Canc elled via OM: Order cancelled - Patient discharged Performed By: #### L 500.2500, L100.0100 ####[facility] [address] [place], [address] Bedside Glucoseon 03-26-2024 FINGERSTICK GLU 123 mg/dL High 74-106 [facility] Comment on above: Result Comment: LEVI GEMENT OF PATIENT CARE PER NURSING PROTOCOL Performed By: #### L 501.080 ####[facility] [address] [place], [address] CBC W/Diff, Automatedon 11-2 Absolute Neut Normal 2.0-7.7 [facility] Comment on above: Result Comment: Canc elled via OM: Order cancelled - Patient discharged Performed By: #### L 500.2500, L100.0100 ####[facility] [address] [place], [address] HCT Normal 37-47 [facility] Comment on above: Result Comment: Canc elled via OM: Order cancelled - Patient discharged Performed By: #### L 500.2500, L100.0100 ####[facility] [address] [place], [address] HGB Normal 12.0-15.0 [facility] Comment on above: Result Comment: Canc elled via OM: Order cancelled - Patient discharged Performed By: #### L 500.2500, L100.0100 ####[facility] [address] [place], [address] MCH Normal 27.0-32.0 [facility] Comment on above: Result Comment: Canc elled via OM: Order cancelled - Patient discharged Performed By: #### L 500.2500, L100.0100 ####[facility] [address] [place], [address] MCHC Normal 32-36 [facility] Comment on above: Result Comment: Canc elled via OM: Order cancelled - Patient discharged Performed By: #### L 500.2500, L100.0100 ####[facility] [address] [place], [address] MCV Normal 81-99 [facility] Comment on above: Result Comment: Canc elled via OM: Order cancelled - Patient discharged Performed By: #### L 500.2500, L100.0100 ####[facility] [address] [place], [address] NEUT% Normal 47-70 [facility] Comment on above: Result Comment: Canc elled via OM: Order cancelled - Patient discharged Performed By: #### L 500.2500, L100.0100 ####[facility] [address] [place], [address] PLT Normal 150-450 [facility] Comment on above: Result Comment: Canc elled via OM: Order cancelled - Patient discharged Performed By: #### L 500.2500, L100.0100 ####[facility] [address] [place], [address] RBC Normal 4.2-5.4 [facility] Comment on above: Result Comment: Canc elled via OM: Order cancelled - Patient discharged Performed By: #### L 500.2500, L100.0100 ####[facility] [address] [place], [address] RDW CV Normal 11.6-14.6 [facility] Comment on above: Result Comment: Canc elled via OM: Order cancelled - Patient discharged Performed By: #### L 500.2500, L100.0100 ####[facility] [address] [place], [address] RDW SD Normal 35.1-43.9 [facility] Comment on above: Result Comment: Canc elled via OM: Order cancelled - Patient discharged Performed By: #### L 500.2500, L100.0100 ####[facility] [address] [place], [address] WBC Normal 4.4-11.0 [facility] Comment on above: Result Comment: Canc elled via OM: Order cancelled - Patient discharged Performed By: #### L 500.2500, L100.0100 ####[facility] [address] [place], [address] Prothrombin Time w/INRon INR Coag (PPP) [Relative time] 3.0 {INR} Normal [facility] Comment on above: Performed By: #### L 300.3900 ####[facility] [address] [place], [address] PT Coag (PPP) [Time] 30.6 s High 11.7-14.9 [facility] Comment on above: Performed By: #### L 300.3900 ####[facility] [address] [place], [address] Basic Metabolic Profile (BMP )on 03-25-2024 BUN Normal 7-18 [facility] Comment on above: Result Comment: Canc elled via OM: Order cancelled - Patient discharged Performed By: #### L 500.2500, L100.0100 ####[facility] [address] [place], [address] BUN/CRE Normal 10-20 [facility] Comment on above: Result Comment: Canc elled via OM: Order cancelled - Patient discharged Performed By: #### L 500.2500, L100.0100 ####[facility] [address] [place], [address] CA,Total Normal 8.5-10.1 [facility] Comment on above: Result Comment: Canc elled via OM: Order cancelled - Patient discharged Performed By: #### L 500.2500, L100.0100 ####[facility] [address] [place], [address] CL Normal 98-107 [facility] Comment on above: Result Comment: Canc elled via OM: Order cancelled - Patient discharged Performed By: #### L 500.2500, L100.0100 ####[facility] [address] [place], [address] CO2 Normal 21.0-32.0 [facility] Comment on above: Result Comment: Canc elled via OM: Order cancelled - Patient discharged Performed By: #### L 500.2500, L100.0100 ####[facility] [address] [place], [address] CREAT,SERUM Normal 0.55-1.02 [facility] Comment on above: Result Comment: Canc elled via OM: Order cancelled - Patient discharged Performed By: #### L 500.2500, L100.0100 ####[facility] [address] [place], [address] EST GFR Normal >60 [facility] Comment on above: Result Comment: Canc elled via OM: Order cancelled - Patient discharged Performed By: #### L 500.2500, L100.0100 ####[facility] [address] [place], [address] EST GFR - AA Normal >60 [facility] Comment on above: Result Comment: Canc elled via OM: Order cancelled - Patient discharged Performed By: #### L 500.2500, L100.0100 ####[facility] [address] [place], [address] GAP Normal 5-15 [facility] Comment on above: Result Comment: Canc elled via OM: Order cancelled - Patient discharged Performed By: #### L 500.2500, L100.0100 ####[facility] [address] [place], [address] GLU Normal 74-106 [facility] Comment on above: Result Comment: Canc elled via OM: Order cancelled - Patient discharged Performed By: #### L 500.2500, L100.0100 ####[facility] [address] [place], [address] Potassium Normal 3.5-5.1 [facility] Comment on above: Result Comment: Canc elled via OM: Order cancelled - Patient discharged Performed By: #### L 500.2500, L100.0100 ####[facility] [address] [place], [address] Basic Metabolic Profile (BMP) Normal 136-145 [facility] Comment on above: Result Comment: Canc elled via OM: Order cancelled - Patient discharged Performed By: #### L 500.2500, L100.0100 ####[facility] [address] [place], [address] Bedside Glucoseon 03-25-2024 FINGERSTICK GLU 139 mg/dL High 74-106 [facility] Comment on above: Result Comment: LEVI HYDE OF PATIENT CARE PER NURSING PROTOCOL Performed By: #### L 501.080 ####[facility] [address] [place], [address] CBC W/Diff, Automatedon 03-03 Absolute Neut Normal 2.0-7.7 [facility] Comment on above: Result Comment: Canc elled via OM: Order cancelled - Patient discharged Performed By: #### L 500.2500, L100.0100 ####[facility] [address] [place], [address] HCT Normal 37-47 [facility] Comment on above: Result Comment: Canc elled via OM: Order cancelled - Patient discharged Performed By: #### L 500.2500, L100.0100 ####[facility] [address] [place], [address] HGB Normal 12.0-15.0 [facility] Comment on above: Result Comment: Canc elled via OM: Order cancelled - Patient discharged Performed By: #### L 500.2500, L100.0100 ####[facility] [address] [place], [address] MCH Normal 27.0-32.0 [facility] Comment on above: Result Comment: Canc elled via OM: Order cancelled - Patient discharged Performed By: #### L 500.2500, L100.0100 ####[facility] [address] [place], [address] MCHC Normal 32-36 [facility] Comment on above: Result Comment: Canc elled via OM: Order cancelled - Patient discharged Performed By: #### L 500.2500, L100.0100 ####[facility] [address] [place], [address] MCV Normal 81-99 [facility] Comment on above: Result Comment: Canc elled via OM: Order cancelled - Patient discharged Performed By: #### L 500.2500, L100.0100 ####[facility] [address] [place], [address] NEUT% Normal 47-70 [facility] Comment on above: Result Comment: Canc elled via OM: Order cancelled - Patient discharged Performed By: #### L 500.2500, L100.0100 ####[facility] [address] [place], [address] PLT Normal 150-450 [facility] Comment on above: Result Comment: Canc elled via OM: Order cancelled - Patient discharged Performed By: #### L 500.2500, L100.0100 ####[facility] [address] [place], [address] RBC Normal 4.2-5.4 [facility] Comment on above: Result Comment: Canc elled via OM: Order cancelled - Patient discharged Performed By: #### L 500.2500, L100.0100 ####[facility] [address] [place], [address] RDW CV Normal 11.6-14.6 [facility] Comment on above: Result Comment: Canc elled via OM: Order cancelled - Patient discharged Performed By: #### L 500.2500, L100.0100 ####[facility] [address] [place], [address] RDW SD Normal 35.1-43.9 [facility] Comment on above: Result Comment: Canc elled via OM: Order cancelled - Patient discharged Performed By: #### L 500.2500, L100.0100 ####[facility] [address] [place], [address] WBC Normal 4.4-11.0 [facility] Comment on above: Result Comment: Canc elled via OM: Order cancelled - Patient discharged Performed By: #### L 500.2500, L100.0100 ####[facility] [address] [place], [address] Basic Metabolic Profile (BMP )on 03-24-2024 BUN Normal 7-18 [facility] Comment on above: Result Comment: Canc elled via OM: Order cancelled - Patient discharged Performed By: #### L 500.2500, L100.0100 ####[facility] [address] [place], [address] BUN/CRE Normal 10-20 [facility] Comment on above: Result Comment: Canc elled via OM: Order cancelled - Patient discharged Performed By: #### L 500.2500, L100.0100 ####[facility] [address] [place], [address] CA,Total Normal 8.5-10.1 [facility] Comment on above: Result Comment: Canc elled via OM: Order cancelled - Patient discharged Performed By: #### L 500.2500, L100.0100 ####[facility] [address] [place], [address] CL Normal 98-107 [facility] Comment on above: Result Comment: Canc elled via OM: Order cancelled - Patient discharged Performed By: #### L 500.2500, L100.0100 ####[facility] [address] [place], [address] CO2 Normal 21.0-32.0 [facility] Comment on above: Result Comment: Canc elled via OM: Order cancelled - Patient discharged Performed By: #### L 500.2500, L100.0100 ####[facility] [address] [place], [address] CREAT,SERUM Normal 0.55-1.02 [facility] Comment on above: Result Comment: Canc elled via OM: Order cancelled - Patient discharged Performed By: #### L 500.2500, L100.0100 ####[facility] [address] [place], [address] EST GFR Normal >60 [facility] Comment on above: Result Comment: Canc elled via OM: Order cancelled - Patient discharged Performed By: #### L 500.2500, L100.0100 ####[facility] [address] [place], [address] EST GFR - AA Normal >60 [facility] Comment on above: Result Comment: Canc elled via OM: Order cancelled - Patient discharged Performed By: #### L 500.2500, L100.0100 ####[facility] [address] [place], [address] GAP Normal 5-15 [facility] Comment on above: Result Comment: Canc elled via OM: Order cancelled - Patient discharged Performed By: #### L 500.2500, L100.0100 ####[facility] [address] [place], [address] GLU Normal 74-106 [facility] Comment on above: Result Comment: Canc elled via OM: Order cancelled - Patient discharged Performed By: #### L 500.2500, L100.0100 ####[facility] [address] [place], [address] Potassium Normal 3.5-5.1 [facility] Comment on above: Result Comment: Canc elled via OM: Order cancelled - Patient discharged Performed By: #### L 500.2500, L100.0100 ####[facility] [address] [place], [address] Basic Metabolic Profile (BMP) Normal 136-145 [facility] Comment on above: Result Comment: Canc elled via OM: Order cancelled - Patient discharged Performed By: #### L 500.2500, L100.0100 ####[facility] [address] [place], [address] Bedside Glucoseon 03-24-2024 FINGERSTICK GLU 120 mg/dL High 74-106 [facility] Comment on above: Result Comment: LEVI HYDE OF PATIENT CARE PER NURSING PROTOCOL Performed By: #### L 501.080 ####[facility] [address] [place], [address] CBC W/Diff, Automatedon 03-03 Absolute Neut Normal 2.0-7.7 [facility] Comment on above: Result Comment: Canc elled via OM: Order cancelled - Patient discharged Performed By: #### L 500.2500, L100.0100 ####[facility] [address] [place], [address] HCT Normal 37-47 [facility] Comment on above: Result Comment: Canc elled via OM: Order cancelled - Patient discharged Performed By: #### L 500.2500, L100.0100 ####[facility] [address] [place], [address] HGB Normal 12.0-15.0 [facility] Comment on above: Result Comment: Canc elled via OM: Order cancelled - Patient discharged Performed By: #### L 500.2500, L100.0100 ####[facility] [address] [place], [address] MCH Normal 27.0-32.0 [facility] Comment on above: Result Comment: Canc elled via OM: Order cancelled - Patient discharged Performed By: #### L 500.2500, L100.0100 ####[facility] [address] [place], [address] MCHC Normal 32-36 [facility] Comment on above: Result Comment: Canc elled via OM: Order cancelled - Patient discharged Performed By: #### L 500.2500, L100.0100 ####[facility] [address] [place], [address] MCV Normal 81-99 [facility] Comment on above: Result Comment: Canc elled via OM: Order cancelled - Patient discharged Performed By: #### L 500.2500, L100.0100 ####[facility] [address] [place], [address] NEUT% Normal 47-70 [facility] Comment on above: Result Comment: Canc elled via OM: Order cancelled - Patient discharged Performed By: #### L 500.2500, L100.0100 ####[facility] [address] [place], [address] PLT Normal 150-450 [facility] Comment on above: Result Comment: Canc elled via OM: Order cancelled - Patient discharged Performed By: #### L 500.2500, L100.0100 ####[facility] [address] [place], [address] RBC Normal 4.2-5.4 [facility] Comment on above: Result Comment: Canc elled via OM: Order cancelled - Patient discharged Performed By: #### L 500.2500, L100.0100 ####[facility] [address] [place], [address] RDW CV Normal 11.6-14.6 [facility] Comment on above: Result Comment: Canc elled via OM: Order cancelled - Patient discharged Performed By: #### L 500.2500, L100.0100 ####[facility] [address] [place], [address] RDW SD Normal 35.1-43.9 [facility] Comment on above: Result Comment: Canc elled via OM: Order cancelled - Patient discharged Performed By: #### L 500.2500, L100.0100 ####[facility] [address] [place], [address] WBC Normal 4.4-11.0 [facility] Comment on above: Result Comment: Canc elled via OM: Order cancelled - Patient discharged Performed By: #### L 500.2500, L100.0100 ####[facility] [address] [place], [address] Basic Metabolic Profile (BMP )on 03-23-2024 BUN/CRE 33.5 RATIO High 10-20 [facility] Comment on above: Performed By: #### L 500.2500 ####[facility] [address] [place], [address] CA,Total 8.6 mg/dL Normal 8.5-10.1 [facility] Comment on above: Performed By: #### L 500.2500 ####[facility] [address] [place], [address] Chloride [Moles/Vol] 111 mmol/L High 98-107 [facility] Comment on above: Performed By: #### L 500.2500 ####[facility] [address] [place], [address] CO2 [Moles/Vol] 22.0 mmol/L Normal 21.0-32.0 [facility] Comment on above: Performed By: #### L 500.2500 ####[facility] [address] [place], [address] Creatinine [Mass/Vol] 0.87 mg/dL Normal 0.55-1.02 [facility] Comment on above: Result Comment: The validity of the calculated GFR GFRAA in patients over70 years has not been determined. Clinical correlation isessential. Performed By: #### L 500.2500 ####[facility] [address] [place], [address] ECRCL 43.83 ml/min Normal [facility] Comment on above: Performed By: #### L 500.2500 ####[facility] [address] [place], [address] EST GFR - AA 80 mL/min Normal >60 [facility] Comment on above: Result Comment: Afri can Portuguese GFR Calc Performed By: #### L 500.2500 ####[facility] [address] [place], [address] GAP 4 Low 5-15 [facility] Comment on above: Performed By: #### L 500.2500 ####[facility] [address] [place], [address] GFR/1.73 sq M.predicted among non-blacks MDRD (S/P/Bld) [Vol rate/Area] 66 mL/min/{1.73_m2} Normal >60 [facility] Comment on above: Result Comment: Non- GFR Calc Performed By: #### L 500.2500 ####[facility] [address] [place], [address] Glucose [Mass/Vol] 136 mg/dL High 74-106 [facility] Comment on above: Result Comment: Fast ing Glucose result greater than or equal to 126 mg/dLsuggests DIABETES MELLITUS per A.D.A. criteria. Performed By: #### L 500.2500 ####[facility] [address] [place], [address] Potassium [Moles/Vol] 4.1 mmol/L Normal 3.5-5.1 [facility] Comment on above: Performed By: #### L 500.2500 ####[facility] [address] [place], [address] Sodium [Moles/Vol] 138 mmol/L Normal 136-145 [facility] Comment on above: Performed By: #### L 500.2500 ####[facility] [address] [place], [address] Urea nitrogen [Mass/Vol] 29 mg/dL High 7-18 [facility] Comment on above: Performed By: #### L 500.2500 ####[facility] [address] [place], [address] BUN Normal 7-18 [facility] Comment on above: Result Comment: Canc elled via OM: Order cancelled - Patient discharged Performed By: #### L 500.2500, L100.0100 ####[facility] [address] [place], [address] BUN/CRE Normal 10-20 [facility] Comment on above: Result Comment: Canc elled via OM: Order cancelled - Patient discharged Performed By: #### L 500.2500, L100.0100 ####[facility] [address] [place], [address] CA,Total Normal 8.5-10.1 [facility] Comment on above: Result Comment: Canc elled via OM: Order cancelled - Patient discharged Performed By: #### L 500.2500, L100.0100 ####[facility] [address] [place], [address] CL Normal 98-107 [facility] Comment on above: Result Comment: Canc elled via OM: Order cancelled - Patient discharged Performed By: #### L 500.2500, L100.0100 ####[facility] [address] [place], [address] CO2 Normal 21.0-32.0 [facility] Comment on above: Result Comment: Canc elled via OM: Order cancelled - Patient discharged Performed By: #### L 500.2500, L100.0100 ####[facility] [address] [place], [address] CREAT,SERUM Normal 0.55-1.02 [facility] Comment on above: Result Comment: Canc elled via OM: Order cancelled - Patient discharged Performed By: #### L 500.2500, L100.0100 ####[facility] [address] [place], [address] EST GFR Normal >60 [facility] Comment on above: Result Comment: Canc elled via OM: Order cancelled - Patient discharged Performed By: #### L 500.2500, L100.0100 ####[facility] [address] [place], [address] EST GFR - AA Normal >60 [facility] Comment on above: Result Comment: Canc elled via OM: Order cancelled - Patient discharged Performed By: #### L 500.2500, L100.0100 ####[facility] [address] [place], [address] GAP Normal 5-15 [facility] Comment on above: Result Comment: Canc elled via OM: Order cancelled - Patient discharged Performed By: #### L 500.2500, L100.0100 ####[facility] [address] [place], [address] GLU Normal 74-106 [facility] Comment on above: Result Comment: Canc elled via OM: Order cancelled - Patient discharged Performed By: #### L 500.2500, L100.0100 ####[facility] [address] [place], [address] Potassium Normal 3.5-5.1 [facility] Comment on above: Result Comment: Canc elled via OM: Order cancelled - Patient discharged Performed By: #### L 500.2500, L100.0100 ####[facility] [address] [place], [address] Basic Metabolic Profile (BMP) Normal 136-145 [facility] Comment on above: Result Comment: Canc elled via OM: Order cancelled - Patient discharged Performed By: #### L 500.2500, L100.0100 ####[facility] [address] [place], [address] Bedside Glucoseon 03-23-2024 FINGERSTICK GLU 155 mg/dL High 74-106 [facility] Comment on above: Result Comment: LEVI HYDE OF PATIENT CARE PER NURSING PROTOCOL Performed By: #### L 501.080 ####[facility] [address] [place], [address] CBC W/Diff, Automatedon 03-03 Absolute Neut Normal 2.0-7.7 [facility] Comment on above: Result Comment: Canc elled via OM: Order cancelled - Patient discharged Performed By: #### L 500.2500, L100.0100 ####[facility] [address] [place], [address] HCT Normal 37-47 [facility] Comment on above: Result Comment: Canc elled via OM: Order cancelled - Patient discharged Performed By: #### L 500.2500, L100.0100 ####[facility] [address] [place], [address] HGB Normal 12.0-15.0 [facility] Comment on above: Result Comment: Canc elled via OM: Order cancelled - Patient discharged Performed By: #### L 500.2500, L100.0100 ####[facility] [address] [place], [address] MCH Normal 27.0-32.0 [facility] Comment on above: Result Comment: Canc elled via OM: Order cancelled - Patient discharged Performed By: #### L 500.2500, L100.0100 ####[facility] [address] [place], [address] MCHC Normal 32-36 [facility] Comment on above: Result Comment: Canc elled via OM: Order cancelled - Patient discharged Performed By: #### L 500.2500, L100.0100 ####[facility] [address] [place], [address] MCV Normal 81-99 [facility] Comment on above: Result Comment: Canc elled via OM: Order cancelled - Patient discharged Performed By: #### L 500.2500, L100.0100 ####[facility] [address] [place], [address] NEUT% Normal 47-70 [facility] Comment on above: Result Comment: Canc elled via OM: Order cancelled - Patient discharged Performed By: #### L 500.2500, L100.0100 ####[facility] [address] [place], [address] PLT Normal 150-450 [facility] Comment on above: Result Comment: Canc elled via OM: Order cancelled - Patient discharged Performed By: #### L 500.2500, L100.0100 ####[facility] [address] [place], [address] RBC Normal 4.2-5.4 [facility] Comment on above: Result Comment: Canc elled via OM: Order cancelled - Patient discharged Performed By: #### L 500.2500, L100.0100 ####[facility] [address] [place], [address] RDW CV Normal 11.6-14.6 [facility] Comment on above: Result Comment: Canc elled via OM: Order cancelled - Patient discharged Performed By: #### L 500.2500, L100.0100 ####[facility] [address] [place], [address] RDW SD Normal 35.1-43.9 [facility] Comment on above: Result Comment: Canc elled via OM: Order cancelled - Patient discharged Performed By: #### L 500.2500, L100.0100 ####[facility] [address] [place], [address] WBC Normal 4.4-11.0 [facility] Comment on above: Result Comment: Canc elled via OM: Order cancelled - Patient discharged Performed By: #### L 500.2500, L100.0100 ####[facility] [address] [place], [address] COVID 19 AG RAPID (XOCHILT Vaughn)on 03-23-2024 SARS-CoV-2 (COVID-19) RNA MARCOS+probe Ql (Unsp spec) Normal [facility] Comment on above: Performed By: #### M 100.505 ####[facility] [address] [place], [address] Consultation - Surgicalon Consultation - Surgical Normal [facility] SARS-CoV-2 (COVID-19) Ag IA. rapid Ql (Resp)Ordered By: Jason Smith on 03-23-2024 SARS-CoV-2 Antigen (Rapid) [facility] Basic Metabolic Profile (BMP )on 03-22-2024 BUN Normal 7-18 [facility] Comment on above: Result Comment: Canc elled via OM: Order cancelled - Patient discharged Performed By: #### L 100.0100, L500.2500 ####[facility] [address] [place], [address] BUN/CRE Normal 10-20 [facility] Comment on above: Result Comment: Canc elled via OM: Order cancelled - Patient discharged Performed By: #### L 100.0100, L500.2500 ####[facility] [address] [place], [address] CA,Total Normal 8.5-10.1 [facility] Comment on above: Result Comment: Canc elled via OM: Order cancelled - Patient discharged Performed By: #### L 100.0100, L500.2500 ####[facility] [address] [place], [address] CL Normal 98-107 [facility] Comment on above: Result Comment: Canc elled via OM: Order cancelled - Patient discharged Performed By: #### L 100.0100, L500.2500 ####[facility] [address] [place], [address] CO2 Normal 21.0-32.0 [facility] Comment on above: Result Comment: Canc elled via OM: Order cancelled - Patient discharged Performed By: #### L 100.0100, L500.2500 ####[facility] [address] [place], [address] CREAT,SERUM Normal 0.55-1.02 [facility] Comment on above: Result Comment: Canc elled via OM: Order cancelled - Patient discharged Performed By: #### L 100.0100, L500.2500 ####[facility] [address] [place], [address] EST GFR Normal >60 [facility] Comment on above: Result Comment: Canc elled via OM: Order cancelled - Patient discharged Performed By: #### L 100.0100, L500.2500 ####[facility] [address] [place], [address] EST GFR - AA Normal >60 [facility] Comment on above: Result Comment: Canc elled via OM: Order cancelled - Patient discharged Performed By: #### L 100.0100, L500.2500 ####[facility] [address] [place], [address] GAP Normal 5-15 [facility] Comment on above: Result Comment: Canc elled via OM: Order cancelled - Patient discharged Performed By: #### L 100.0100, L500.2500 ####[facility] [address] [place], [address] GLU Normal 74-106 [facility] Comment on above: Result Comment: Canc elled via OM: Order cancelled - Patient discharged Performed By: #### L 100.0100, L500.2500 ####[facility] [address] [place], [address] Potassium Normal 3.5-5.1 [facility] Comment on above: Result Comment: Canc elled via OM: Order cancelled - Patient discharged Performed By: #### L 100.0100, L500.2500 ####[facility] [address] [place], [address] Basic Metabolic Profile (BMP) Normal 136-145 [facility] Comment on above: Result Comment: Canc elled via OM: Order cancelled - Patient discharged Performed By: #### L 100.0100, L500.2500 ####[facility] [address] [place], [address] Bedside Glucoseon 03-22-2024 FINGERSTICK GLU 130 mg/dL High 74-106 [facility] Comment on above: Result Comment: LEVI HYDE OF PATIENT CARE PER NURSING PROTOCOL Performed By: #### L 501.080 ####[facility] [address] [place], [address] CBC W/Diff, Automatedon - Absolute Neut Normal 2.0-7.7 [facility] Comment on above: Result Comment: Canc elled via OM: Order cancelled - Patient discharged Performed By: #### L 100.0100, L500.2500 ####[facility] [address] [place], [address] HCT Normal 37-47 [facility] Comment on above: Result Comment: Canc elled via OM: Order cancelled - Patient discharged Performed By: #### L 100.0100, L500.2500 ####[facility] [address] [place], [address] HGB Normal 12.0-15.0 [facility] Comment on above: Result Comment: Canc elled via OM: Order cancelled - Patient discharged Performed By: #### L 100.0100, L500.2500 ####[facility] [address] [place], [address] MCH Normal 27.0-32.0 [facility] Comment on above: Result Comment: Canc elled via OM: Order cancelled - Patient discharged Performed By: #### L 100.0100, L500.2500 ####[facility] [address] [place], [address] MCHC Normal 32-36 [facility] Comment on above: Result Comment: Canc elled via OM: Order cancelled - Patient discharged Performed By: #### L 100.0100, L500.2500 ####[facility] [address] [place], [address] MCV Normal 81-99 [facility] Comment on above: Result Comment: Canc elled via OM: Order cancelled - Patient discharged Performed By: #### L 100.0100, L500.2500 ####[facility] [address] [place], [address] NEUT% Normal 47-70 [facility] Comment on above: Result Comment: Canc elled via OM: Order cancelled - Patient discharged Performed By: #### L 100.0100, L500.2500 ####[facility] [address] [place], [address] PLT Normal 150-450 [facility] Comment on above: Result Comment: Canc elled via OM: Order cancelled - Patient discharged Performed By: #### L 100.0100, L500.2500 ####[facility] [address] [place], [address] RBC Normal 4.2-5.4 [facility] Comment on above: Result Comment: Canc elled via OM: Order cancelled - Patient discharged Performed By: #### L 100.0100, L500.2500 ####[facility] [address] [place], [address] RDW CV Normal 11.6-14.6 [facility] Comment on above: Result Comment: Canc elled via OM: Order cancelled - Patient discharged Performed By: #### L 100.0100, L500.2500 ####[facility] [address] [place], [address] RDW SD Normal 35.1-43.9 [facility] Comment on above: Result Comment: Canc elled via OM: Order cancelled - Patient discharged Performed By: #### L 100.0100, L500.2500 ####[facility] [address] [place], [address] WBC Normal 4.4-11.0 [facility] Comment on above: Result Comment: Canc elled via OM: Order cancelled - Patient discharged Performed By: #### L 100.0100, L500.2500 ####[facility] [address] [place], [address] Prothrombin Time w/INRon INR Coag (PPP) [Relative time] 2.5 {INR} Normal [facility] Comment on above: Performed By: #### L 300.3900 ####[facility] [address] [place], [address] PT Coag (PPP) [Time] 27.1 s High 11.7-14.9 [facility] Comment on above: Performed By: #### L 300.3900 ####[facility] [address] [place], [address] Basic Metabolic Profile (BMP )on 03-21-2024 BUN/CRE 23.3 RATIO High 02-18 [facility] Comment on above: Performed By: #### L 500.2500 ####[facility] [address] [place], [address] CA,Total 8.9 mg/dL Normal 8.5-10.1 [facility] Comment on above: Performed By: #### L 500.2500 ####[facility] [address] [place], [address] Chloride [Moles/Vol] 110 mmol/L High 98-107 [facility] Comment on above: Performed By: #### L 500.2500 ####[facility] [address] [place], [address] CO2 [Moles/Vol] 24.0 mmol/L Normal 21.0-32.0 [facility] Comment on above: Performed By: #### L 500.2500 ####[facility] [address] [place], [address] Creatinine [Mass/Vol] 0.73 mg/dL Normal 0.55-1.02 [facility] Comment on above: Result Comment: The validity of the calculated GFR GFRAA in patients over70 years has not been determined. Clinical correlation isessential. Performed By: #### L 500.2500 ####[facility] [address] [place], [address] ECRCL 47.11 ml/min Normal [facility] Comment on above: Performed By: #### L 500.2500 ####[facility] [address] [place], [address] EST GFR - AA 97 mL/min Normal >60 [facility] Comment on above: Result Comment: Afri can Portuguese GFR Calc Performed By: #### L 500.2500 ####[facility] [address] [place], [address] GAP 5 Normal 5-15 [facility] Comment on above: Performed By: #### L 500.2500 ####[facility] [address] [place], [address] GFR/1.73 sq M.predicted among non-blacks MDRD (S/P/Bld) [Vol rate/Area] 81 mL/min/{1.73_m2} Normal >60 [facility] Comment on above: Result Comment: Non- GFR Calc Performed By: #### L 500.2500 ####[facility] [address] [place], [address] Glucose [Mass/Vol] 111 mg/dL High 74-106 [facility] Comment on above: Result Comment: Fast ing Glucose result from 100 to 125 mg/dLsuggests IMPAIRED HOMEOSTASIS per A.D.A. criteria. Performed By: #### L 500.2500 ####[facility] [address] [place], [address] Potassium [Moles/Vol] 3.3 mmol/L Low 3.5-5.1 [facility] Comment on above: Performed By: #### L 500.2500 ####[facility] [address] [place], [address] Sodium [Moles/Vol] 140 mmol/L Normal 136-145 [facility] Comment on above: Performed By: #### L 500.2500 ####[facility] [address] [place], [address] Urea nitrogen [Mass/Vol] 17 mg/dL Normal 7-18 [facility] Comment on above: Performed By: #### L 500.2500 ####[facility] [address] [place], [address] BUN Normal 7-18 [facility] Comment on above: Result Comment: Canc elled via OM: Order cancelled - Patient discharged Performed By: #### L 100.0100, L500.2500 ####[facility] [address] [place], [address] BUN/CRE Normal 10-20 [facility] Comment on above: Result Comment: Canc elled via OM: Order cancelled - Patient discharged Performed By: #### L 100.0100, L500.2500 ####[facility] [address] [place], [address] CA,Total Normal 8.5-10.1 [facility] Comment on above: Result Comment: Canc elled via OM: Order cancelled - Patient discharged Performed By: #### L 100.0100, L500.2500 ####[facility] [address] [facility] [address] CL Normal 98-107 [facility] Comment on above: Result Comment: Canc elled via OM: Order cancelled - Patient discharged Performed By: #### L 100.0100, L500.2500 ####[facility] [address] [place], [address] CO2 Normal 21.0-32.0 [facility] Comment on above: Result Comment: Canc elled via OM: Order cancelled - Patient discharged Performed By: #### L 100.0100, L500.2500 ####[facility] [address] [place], [address] CREAT,SERUM Normal 0.55-1.02 [facility] Comment on above: Result Comment: Canc elled via OM: Order cancelled - Patient discharged Performed By: #### L 100.0100, L500.2500 ####[facility] [address] [place], [address] EST GFR Normal >60 [facility] Comment on above: Result Comment: Canc elled via OM: Order cancelled - Patient discharged Performed By: #### L 100.0100, L500.2500 ####[facility] [address] [place], [address] EST GFR - AA Normal >60 [facility] Comment on above: Result Comment: Canc elled via OM: Order cancelled - Patient discharged Performed By: #### L 100.0100, L500.2500 ####[facility] [address] [place], [address] GAP Normal 5-15 [facility] Comment on above: Result Comment: Canc elled via OM: Order cancelled - Patient discharged Performed By: #### L 100.0100, L500.2500 ####[facility] [address] [place], [address] GLU Normal 74-106 [facility] Comment on above: Result Comment: Canc elled via OM: Order cancelled - Patient discharged Performed By: #### L 100.0100, L500.2500 ####[facility] [address] [place], [address] Potassium Normal 3.5-5.1 [facility] Comment on above: Result Comment: Canc elled via OM: Order cancelled - Patient discharged Performed By: #### L 100.0100, L500.2500 ####[facility] [address] [place], [address] Basic Metabolic Profile (BMP) Normal 136-145 [facility] Comment on above: Result Comment: Canc elled via OM: Order cancelled - Patient discharged Performed By: #### L 100.0100, L500.2500 ####[facility] [address] [place], [address] Bedside Glucoseon 03-21-2024 FINGERSTICK GLU 108 mg/dL High 74-106 [facility] Comment on above: Result Comment: LEVI GEMENT OF PATIENT CARE PER NURSING PROTOCOL Performed By: #### L 501.080 ####[facility] [address] [place], [address] FINGERSTICK GLU 106 mg/dL Normal 74-106 [facility] Comment on above: Result Comment: LEVI GEMENT OF PATIENT CARE PER NURSING PROTOCOL Performed By: #### L 501.080 ####[facility] [address] [place], [address] FINGERSTICK GLU 117 mg/dL High 74-106 [facility] Comment on above: Result Comment: LEVI HYDE OF PATIENT CARE PER NURSING PROTOCOL Performed By: #### L 501.080 ####[facility] [address] [place], [address] CBC W/Diff, Automatedon 11-2 0-2023 Absolute Neut Normal 2.0-7.7 [facility] Comment on above: Result Comment: Canc elled via OM: Order cancelled - Patient discharged Performed By: #### L 100.0100, L500.2500 ####[facility] [address] [place], [address] HCT Normal 37-47 [facility] Comment on above: Result Comment: Canc elled via OM: Order cancelled - Patient discharged Performed By: #### L 100.0100, L500.2500 ####[facility] [address] [place], [address] HGB Normal 12.0-15.0 [facility] Comment on above: Result Comment: Canc elled via OM: Order cancelled - Patient discharged Performed By: #### L 100.0100, L500.2500 ####[facility] [address] [place], [address] MCH Normal 27.0-32.0 [facility] Comment on above: Result Comment: Canc elled via OM: Order cancelled - Patient discharged Performed By: #### L 100.0100, L500.2500 ####[facility] [address] [place], [address] MCHC Normal 32-36 [facility] Comment on above: Result Comment: Canc elled via OM: Order cancelled - Patient discharged Performed By: #### L 100.0100, L500.2500 ####[facility] [address] [place], [address] MCV Normal 81-99 [facility] Comment on above: Result Comment: Canc elled via OM: Order cancelled - Patient discharged Performed By: #### L 100.0100, L500.2500 ####[facility] [address] [place], [address] NEUT% Normal 47-70 [facility] Comment on above: Result Comment: Canc elled via OM: Order cancelled - Patient discharged Performed By: #### L 100.0100, L500.2500 ####[facility] [address] [place], [address] PLT Normal 150-450 [facility] Comment on above: Result Comment: Canc elled via OM: Order cancelled - Patient discharged Performed By: #### L 100.0100, L500.2500 ####[facility] [address] [place], [address] RBC Normal 4.2-5.4 [facility] Comment on above: Result Comment: Canc elled via OM: Order cancelled - Patient discharged Performed By: #### L 100.0100, L500.2500 ####[facility] [address] [place], [address] RDW CV Normal 11.6-14.6 [facility] Comment on above: Result Comment: Canc elled via OM: Order cancelled - Patient discharged Performed By: #### L 100.0100, L500.2500 ####[facility] [address] [place], [address] RDW SD Normal 35.1-43.9 [facility] Comment on above: Result Comment: Canc elled via OM: Order cancelled - Patient discharged Performed By: #### L 100.0100, L500.2500 ####[facility] [address] [place], [address] WBC Normal 4.4-11.0 [facility] Comment on above: Result Comment: Canc elled via OM: Order cancelled - Patient discharged Performed By: #### L 100.0100, L500.2500 ####[facility] [address] [place], [address] Basic Metabolic Profile (BMP )on 03-20-2024 BUN/CRE 21.3 RATIO High 10-20 [facility] Comment on above: Performed By: #### L 500.2500, L100.0100 ####[facility] [address] [place], [address] CA,Total 9.2 mg/dL Normal 8.5-10.1 [facility] Comment on above: Performed By: #### L 500.2500, L100.0100 ####[facility] [address] [place], [address] Chloride [Moles/Vol] 109 mmol/L High 98-107 [facility] Comment on above: Performed By: #### L 500.2500, L100.0100 ####[facility] [address] [place], [address] CO2 [Moles/Vol] 23.0 mmol/L Normal 21.0-32.0 [facility] Comment on above: Performed By: #### L 500.2500, L100.0100 ####[facility] [address] [place], [address] Creatinine [Mass/Vol] 0.70 mg/dL Normal 0.55-1.02 [facility] Comment on above: Result Comment: The validity of the calculated GFR GFRAA in patients over70 years has not been determined. Clinical correlation isessential. Performed By: #### L 500.2500, L100.0100 ####[facility] [address] [place], [address] ECRCL 47.06 ml/min Normal [facility] Comment on above: Performed By: #### L 500.2500, L100.0100 ####[facility] [address] [place], [address] EST GFR - AA 102 mL/min Normal >60 [facility] Comment on above: Result Comment: Afri can Portuguese GFR Calc Performed By: #### L 500.2500, L100.0100 ####[facility] [address] [place], [address] GAP 6 Normal 5-15 [facility] Comment on above: Performed By: #### L 500.2500, L100.0100 ####[facility] [address] [place], [address] GFR/1.73 sq M.predicted among non-blacks MDRD (S/P/Bld) [Vol rate/Area] 84 mL/min/{1.73_m2} Normal >60 [facility] Comment on above: Result Comment: Non- GFR Calc Performed By: #### L 500.2500, L100.0100 ####[facility] [address] [place], [address] Glucose [Mass/Vol] 136 mg/dL High 74-106 [facility] Comment on above: Result Comment: Fast ing Glucose result greater than or equal to 126 mg/dLsuggests DIABETES MELLITUS per A.D.A. criteria. Performed By: #### L 500.2500, L100.0100 ####[facility] [address] [place], [address] Potassium [Moles/Vol] 3.2 mmol/L Low 3.5-5.1 [facility] Comment on above: Performed By: #### L 500.2500, L100.0100 ####[facility] [address] [place], [address] Sodium [Moles/Vol] 138 mmol/L Normal 136-145 [facility] Comment on above: Performed By: #### L 500.2500, L100.0100 ####[facility] [address] [place], [address] Urea nitrogen [Mass/Vol] 15 mg/dL Normal 7-18 [facility] Comment on above: Performed By: #### L 500.2500, L100.0100 ####[facility] [address] [place], [address] BUN Normal 7-18 [facility] Comment on above: Result Comment: Canc elled via OM: Order cancelled - Patient discharged Performed By: #### L 500.2500, L100.0100 ####[facility] [address] [place], [address] BUN/CRE Normal 10-20 [facility] Comment on above: Result Comment: Canc elled via OM: Order cancelled - Patient discharged Performed By: #### L 500.2500, L100.0100 ####[facility] [address] [place], [address] CA,Total Normal 8.5-10.1 [facility] Comment on above: Result Comment: Canc elled via OM: Order cancelled - Patient discharged Performed By: #### L 500.2500, L100.0100 ####[facility] [address] [place], [address] CL Normal 98-107 [facility] Comment on above: Result Comment: Canc elled via OM: Order cancelled - Patient discharged Performed By: #### L 500.2500, L100.0100 ####[facility] [address] [place], [address] CO2 Normal 21.0-32.0 [facility] Comment on above: Result Comment: Canc elled via OM: Order cancelled - Patient discharged Performed By: #### L 500.2500, L100.0100 ####[facility] [address] [place], [address] CREAT,SERUM Normal 0.55-1.02 [facility] Comment on above: Result Comment: Canc elled via OM: Order cancelled - Patient discharged Performed By: #### L 500.2500, L100.0100 ####[facility] [address] [place], [address] EST GFR Normal >60 [facility] Comment on above: Result Comment: Canc elled via OM: Order cancelled - Patient discharged Performed By: #### L 500.2500, L100.0100 ####[facility] [address] [place], [address] EST GFR - AA Normal >60 [facility] Comment on above: Result Comment: Canc elled via OM: Order cancelled - Patient discharged Performed By: #### L 500.2500, L100.0100 ####[facility] [address] [place], [address] GAP Normal 5-15 [facility] Comment on above: Result Comment: Canc elled via OM: Order cancelled - Patient discharged Performed By: #### L 500.2500, L100.0100 ####[facility] [address] [place], [address] GLU Normal 74-106 [facility] Comment on above: Result Comment: Canc elled via OM: Order cancelled - Patient discharged Performed By: #### L 500.2500, L100.0100 ####[facility] [address] [place], [address] Potassium Normal 3.5-5.1 [facility] Comment on above: Result Comment: Canc elled via OM: Order cancelled - Patient discharged Performed By: #### L 500.2500, L100.0100 ####[facility] [address] [place], [address] Basic Metabolic Profile (BMP) Normal 136-145 [facility] Comment on above: Result Comment: Canc elled via OM: Order cancelled - Patient discharged Performed By: #### L 500.2500, L100.0100 ####[facility] [address] [place], [address] Bedside Glucoseon 03-20-2024 FINGERSTICK GLU 120 mg/dL High 74-106 [facility] Comment on above: Result Comment: LEVI GEMENT OF PATIENT CARE PER NURSING PROTOCOL Performed By: #### L 501.080 ####[facility] [address] [place], [address] FINGERSTICK GLU 79 mg/dL Normal 74-106 [facility] Comment on above: Result Comment: LEVI GEMENT OF PATIENT CARE PER NURSING PROTOCOL Performed By: #### L 501.080 ####[facility] [address] [place], [address] FINGERSTICK GLU 124 mg/dL High 74-106 [facility] Comment on above: Result Comment: LEVI GEMENT OF PATIENT CARE PER NURSING PROTOCOL Performed By: #### L 501.080 ####[facility] [address] [place], [address] FINGERSTICK GLU 152 mg/dL High 74-106 [facility] Comment on above: Result Comment: LEVI GEMENT OF PATIENT CARE PER NURSING PROTOCOL Performed By: #### L 501.080 ####[facility] [address] [place], [address] CBC W/Diff, Automatedon 03-02 Absolute Lymph 1.27 X10 3/uL Normal 0.83-4.51 [facility] Comment on above: Performed By: #### L 500.2500, L100.0100 ####[facility] [address] [place], [address] Absolute Neut 4.1 X10 3/uL Normal 2.0-7.7 [facility] Comment on above: Performed By: #### L 500.2500, L100.0100 ####[facility] [address] [place], [address] Basophils/100 WBC (Bld) 0.8 % Normal 0-1 [facility] Comment on above: Performed By: #### L 500.2500, L100.0100 ####[facility] [address] [place], [address] Eosinophils/100 WBC (Bld) 1.7 % Normal 0-5 [facility] Comment on above: Performed By: #### L 500.2500, L100.0100 ####[facility] [address] [place], [address] Erythrocyte distribution width (RBC) [Ratio] 18.4 % High 11.6-14.6 [facility] Comment on above: Performed By: #### L 500.2500, L100.0100 ####[facility] [address] [place], [address] Hematocrit (Bld) [Volume fraction] 28.6 % Low 37-47 [facility] Comment on above: Performed By: #### L 500.2500, L100.0100 ####[facility] [address] [place], [address] Hemoglobin (Bld) [Mass/Vol] 9.2 g/dL Low 12.0-15.0 [facility] Comment on above: Performed By: #### L 500.2500, L100.0100 ####[facility] [address] [place], [address] IG% 0.500 Normal 0.0-0.9 [facility] Comment on above: Result Comment: IG% - Immature Granulocytes (promyelocytes, myelocytes andmetamyelocytes) > 1% indicates that a LEFT SHIFT is Present. Performed By: #### L 500.2500, L100.0100 ####[facility] [address] [place], [address] Lymphocytes/100 WBC (Bld) 19.9 % Normal 19-41 [facility] Comment on above: Performed By: #### L 500.2500, L100.0100 ####[facility] [address] [place], [address] MCH (RBC) [Entitic mass] 29.7 pg Normal 27.0-32.0 [facility] Comment on above: Performed By: #### L 500.2500, L100.0100 ####[facility] [address] [place], [address] MCHC (RBC) [Mass/Vol] 32.2 g/dL Normal 32-36 [facility] Comment on above: Performed By: #### L 500.2500, L100.0100 ####[facility] [address] [place], [address] MCV (RBC) [Entitic vol] 92.3 fL Normal 81-99 [facility] Comment on above: Performed By: #### L 500.2500, L100.0100 ####[facility] [address] [place], [address] Monocytes/100 WBC (Bld) 12.9 % High 0-10 [facility] Comment on above: Performed By: #### L 500.2500, L100.0100 ####[facility] [address] [place], [address] Neutrophils/100 WBC (Bld) 64.2 % Normal 47-70 [facility] Comment on above: Performed By: #### L 500.2500, L100.0100 ####[facility] [address] [place], [address] Nucleated RBC (Bld) [#/Vol] 0.3 10*3/uL Normal 0-5 [facility] Comment on above: Performed By: #### L 500.2500, L100.0100 ####[facility] [address] [place], [address] Platelet mean volume (Bld) [Entitic vol] 9.5 fL Normal 6.2-12.0 [facility] Comment on above: Performed By: #### L 500.2500, L100.0100 ####[facility] [address] [place], [address] Platelets (Bld) [#/Vol] 338 10*3/uL Normal 150-450 [facility] Comment on above: Performed By: #### L 500.2500, L100.0100 ####[facility] [address] [place], [address] RBC (Bld) [#/Vol] 3.10 10*6/uL Low 4.2-5.4 [facility] Comment on above: Performed By: #### L 500.2500, L100.0100 ####[facility] [address] [place], [address] RDW SD 60.8 fl High 35.1-43.9 [facility] Comment on above: Performed By: #### L 500.2500, L100.0100 ####[facility] [address] [place], [address] WBC (Bld) [#/Vol] 6.4 10*3/uL Normal 4.4-11.0 [facility] Comment on above: Performed By: #### L 500.2500, L100.0100 ####[facility] [address] [place], [address] Absolute Neut Normal 2.0-7.7 [facility] Comment on above: Result Comment: Canc elled via OM: Order cancelled - Patient discharged Performed By: #### L 500.2500, L100.0100 ####[facility] [address] [place], [address] HCT Normal 37-47 [facility] Comment on above: Result Comment: Canc elled via OM: Order cancelled - Patient discharged Performed By: #### L 500.2500, L100.0100 ####[facility] [address] [place], [address] HGB Normal 12.0-15.0 [facility] Comment on above: Result Comment: Canc elled via OM: Order cancelled - Patient discharged Performed By: #### L 500.2500, L100.0100 ####[facility] [address] [place], [address] MCH Normal 27.0-32.0 [facility] Comment on above: Result Comment: Canc elled via OM: Order cancelled - Patient discharged Performed By: #### L 500.2500, L100.0100 ####[facility] [address] [place], [address] MCHC Normal 32-36 [facility] Comment on above: Result Comment: Canc elled via OM: Order cancelled - Patient discharged Performed By: #### L 500.2500, L100.0100 ####[facility] [address] [place], [address] MCV Normal 81-99 [facility] Comment on above: Result Comment: Canc elled via OM: Order cancelled - Patient discharged Performed By: #### L 500.2500, L100.0100 ####[facility] [address] [place], [address] NEUT% Normal 47-70 [facility] Comment on above: Result Comment: Canc elled via OM: Order cancelled - Patient discharged Performed By: #### L 500.2500, L100.0100 ####[facility] [address] [place], [address] PLT Normal 150-450 [facility] Comment on above: Result Comment: Canc elled via OM: Order cancelled - Patient discharged Performed By: #### L 500.2500, L100.0100 ####[facility] [address] [place], [address] RBC Normal 4.2-5.4 [facility] Comment on above: Result Comment: Canc elled via OM: Order cancelled - Patient discharged Performed By: #### L 500.2500, L100.0100 ####[facility] [address] [place], [address] RDW CV Normal 11.6-14.6 [facility] Comment on above: Result Comment: Canc elled via OM: Order cancelled - Patient discharged Performed By: #### L 500.2500, L100.0100 ####[facility] [address] [place], [address] RDW SD Normal 35.1-43.9 [facility] Comment on above: Result Comment: Canc elled via OM: Order cancelled - Patient discharged Performed By: #### L 500.2500, L100.0100 ####[facility] [address] [place], [address] WBC Normal 4.4-11.0 [facility] Comment on above: Result Comment: Canc elled via OM: Order cancelled - Patient discharged Performed By: #### L 500.2500, L100.0100 ####[facility] [address] [place], [address] Prothrombin Time w/INRon INR Normal [facility] Comment on above: Result Comment: Canc elled via OM: Order cancelled - Patient discharged Performed By: #### L 300.3900 ####[facility] [address] [place], [address] PROTIME Normal 11.7-14.9 [facility] Comment on above: Result Comment: Canc elled via OM: Order cancelled - Patient discharged Performed By: #### L 300.3900 ####[facility] [address] [place], [address] Basic Metabolic Profile (BMP )on 03-19-2024 BUN/CRE 31.9 RATIO High 10-20 [facility] Comment on above: Performed By: #### L 100.0500, L500.2500 ####[facility] [address] [place], [address] CA,Total 8.8 mg/dL Normal 8.5-10.1 [facility] Comment on above: Performed By: #### L 100.0500, L500.2500 ####[facility] [address] [place], [address] Chloride [Moles/Vol] 105 mmol/L Normal 98-107 [facility] Comment on above: Performed By: #### L 100.0500, L500.2500 ####[facility] [address] [place], [address] CO2 [Moles/Vol] 26.0 mmol/L Normal 21.0-32.0 [facility] Comment on above: Performed By: #### L 100.0500, L500.2500 ####[facility] [address] [place], [address] Creatinine [Mass/Vol] 0.69 mg/dL Normal 0.55-1.02 [facility] Comment on above: Result Comment: The validity of the calculated GFR GFRAA in patients over70 years has not been determined. Clinical correlation isessential. Performed By: #### L 100.0500, L500.2500 ####[facility] [address] [place], [address] ECRCL 47.96 ml/min Normal [facility] Comment on above: Performed By: #### L 100.0500, L500.2500 ####[facility] [address] [place], [address] EST GFR - AA 104 mL/min Normal >60 [facility] Comment on above: Result Comment: Afri can Portuguese GFR Calc Performed By: #### L 100.0500, L500.2500 ####[facility] [address] [place], [address] GAP 9 Normal 5-15 [facility] Comment on above: Performed By: #### L 100.0500, L500.2500 ####[facility] [address] [place], [address] GFR/1.73 sq M.predicted among non-blacks MDRD (S/P/Bld) [Vol rate/Area] 86 mL/min/{1.73_m2} Normal >60 [facility] Comment on above: Result Comment: Non- GFR Calc Performed By: #### L 100.0500, L500.2500 ####[facility] [address] [place], [address] Glucose [Mass/Vol] 122 mg/dL High 74-106 [facility] Comment on above: Result Comment: Fast ing Glucose result from 100 to 125 mg/dLsuggests IMPAIRED HOMEOSTASIS per A.D.A. criteria. Performed By: #### L 100.0500, L500.2500 ####[facility] [address] [place], [address] Potassium [Moles/Vol] 3.3 mmol/L Low 3.5-5.1 [facility] Comment on above: Performed By: #### L 100.0500, L500.2500 ####[facility] [address] [place], [address] Sodium [Moles/Vol] 140 mmol/L Normal 136-145 [facility] Comment on above: Performed By: #### L 100.0500, L500.2500 ####[facility] [address] [place], [address] Urea nitrogen [Mass/Vol] 22 mg/dL High 7-18 [facility] Comment on above: Performed By: #### L 100.0500, L500.2500 ####[facility] [address] [place], [address] Bedside Glucoseon 03-19-2024 FINGERSTICK GLU 119 mg/dL High 74-106 [facility] Comment on above: Result Comment: LEVI GEMENT OF PATIENT CARE PER NURSING PROTOCOL Performed By: #### L 501.080 ####[facility] [address] [place], [address] FINGERSTICK GLU 149 mg/dL High 74-106 [facility] Comment on above: Result Comment: LEVI GEMENT OF PATIENT CARE PER NURSING PROTOCOL Performed By: #### L 501.080 ####[facility] [address] [place], [address] FINGERSTICK GLU 186 mg/dL High 74-106 [facility] Comment on above: Result Comment: LEVI GEMENT OF PATIENT CARE PER NURSING PROTOCOL Performed By: #### L 501.080 ####[facility] [address] [place], [address] FINGERSTICK GLU 128 mg/dL High 74-106 [facility] Comment on above: Result Comment: LEVI GEMENT OF PATIENT CARE PER NURSING PROTOCOL Performed By: #### L 501.080 ####[facility] [address] [place], [address] CBC-Complete Blood Cnt No Di ffon 03-19-2024 Erythrocyte distribution width (RBC) [Ratio] 18.4 % High 11.6-14.6 [facility] Comment on above: Performed By: #### L 100.0500, L500.2500 ####[facility] [address] [place], [address] Hematocrit (Bld) [Volume fraction] 28.3 % Low 37-47 [facility] Comment on above: Performed By: #### L 100.0500, L500.2500 ####[facility] [address] [place], [address] Hemoglobin (Bld) [Mass/Vol] 9.2 g/dL Low 12.0-15.0 [facility] Comment on above: Performed By: #### L 100.0500, L500.2500 ####[facility] [address] [place], [address] MCH (RBC) [Entitic mass] 30.2 pg Normal 27.0-32.0 [facility] Comment on above: Performed By: #### L 100.0500, L500.2500 ####[facility] [address] [place], [address] MCHC (RBC) [Mass/Vol] 32.5 g/dL Normal 32-36 [facility] Comment on above: Performed By: #### L 100.0500, L500.2500 ####[facility] [address] [place], [address] MCV (RBC) [Entitic vol] 92.8 fL Normal 81-99 [facility] Comment on above: Performed By: #### L 100.0500, L500.2500 ####[facility] [address] [place], [address] Platelet mean volume (Bld) [Entitic vol] 10.1 fL Normal 6.2-12.0 [facility] Comment on above: Performed By: #### L 100.0500, L500.2500 ####[facility] [address] [place], [address] Platelets (Bld) [#/Vol] 284 10*3/uL Normal 150-450 [facility] Comment on above: Performed By: #### L 100.0500, L500.2500 ####[facility] [address] [place], [address] RBC (Bld) [#/Vol] 3.05 10*6/uL Low 4.2-5.4 [facility] Comment on above: Performed By: #### L 100.0500, L500.2500 ####[facility] [address] [place], [address] RDW SD 60.3 fl High 35.1-43.9 [facility] [facility] Comment on above: Performed By: #### L 100.0500, L500.2500 ####[facility] [address] [place], [address] WBC (Bld) [#/Vol] 6.2 10*3/uL Normal 4.4-11.0 [facility] Comment on above: Performed By: #### L 100.0500, L500.2500 ####[facility] [address] [place], [address] Prothrombin Time w/INRon INR Coag (PPP) [Relative time] 2.6 {INR} Normal [facility] Comment on above: Performed By: #### L 300.3900 ####[facility] [address] [place], [address] PT Coag (PPP) [Time] 27.8 s High 11.7-14.9 [facility] Comment on above: Performed By: #### L 300.3900 ####[facility] [address] [place], [address] BRCon 03-18-2024 RC Normal [facility] Comment on above: Result Comment: [id number] AN RC TRANSFUSED 03/18/24 1720 Performed By: #### B TS, BRC ####[facility] [address] [place], [address] Bedside Glucoseon 03-18-2024 FINGERSTICK GLU 129 mg/dL High 74-106 [facility] Comment on above: Result Comment: LEVI GEMENT OF PATIENT CARE PER NURSING PROTOCOL Performed By: #### L 501.080 ####[facility] [address] [place], [address] FINGERSTICK GLU 129 mg/dL High 74-106 [facility] Comment on above: Result Comment: LEVI GEMENT OF PATIENT CARE PER NURSING PROTOCOL Performed By: #### L 501.080 ####[facility] [address] [place], [address] FINGERSTICK GLU 128 mg/dL High 74-106 [facility] Comment on above: Result Comment: LEVI GEMENT OF PATIENT CARE PER NURSING PROTOCOL Performed By: #### L 501.080 ####[facility] [address] [place], [address] FINGERSTICK GLU 132 mg/dL High 74-106 [facility] Comment on above: Result Comment: LEVI GEMENT OF PATIENT CARE PER NURSING PROTOCOL Performed By: #### L 501.080 ####[facility] [address] [place], [address] CBC W/Diff, Automatedon 03-02 Absolute Lymph 1.74 X10 3/uL Normal 0.83-4.51 [facility] Comment on above: Performed By: #### L 100.0100 ####[facility] [address] [place], [address] Absolute Neut 3.2 X10 3/uL Normal 2.0-7.7 [facility] Comment on above: Performed By: #### L 100.0100 ####[facility] [address] [place], [address] Basophils/100 WBC (Bld) 0.5 % Normal 0-1 [facility] Comment on above: Performed By: #### L 100.0100 ####[facility] [address] [place], [address] Eosinophils/100 WBC (Bld) 2.6 % Normal 0-5 [facility] Comment on above: Performed By: #### L 100.0100 ####[facility] [address] [place], [address] Erythrocyte distribution width (RBC) [Ratio] 17.4 % High 11.6-14.6 [facility] Comment on above: Performed By: #### L 100.0100 ####[facility] [address] [place], [address] Hematocrit (Bld) [Volume fraction] 24.9 % Low 37-47 [facility] Comment on above: Performed By: #### L 100.0100 ####[facility] [address] [place], [address] Hemoglobin (Bld) [Mass/Vol] 7.7 g/dL Low 12.0-15.0 [facility] Comment on above: Performed By: #### L 100.0100 ####[facility] [address] [place], [address] IG% 0.500 Normal 0.0-0.9 [facility] Comment on above: Result Comment: IG% - Immature Granulocytes (promyelocytes, myelocytes andmetamyelocytes) > 1% indicates that a LEFT SHIFT is Present. Performed By: #### L 100.0100 ####[facility] [address] [place], [address] Lymphocytes/100 WBC (Bld) 30.0 % Normal 19-41 [facility] Comment on above: Performed By: #### L 100.0100 ####[facility] [address] [place], [address] MCH (RBC) [Entitic mass] 30.2 pg Normal 27.0-32.0 [facility] Comment on above: Performed By: #### L 100.0100 ####[facility] [address] [place], [address] MCHC (RBC) [Mass/Vol] 30.9 g/dL Low 32-36 [facility] Comment on above: Performed By: #### L 100.0100 ####[facility] [address] [place], [address] MCV (RBC) [Entitic vol] 97.6 fL Normal 81-99 [facility] Comment on above: Performed By: #### L 100.0100 ####[facility] [address] [place], [address] Monocytes/100 WBC (Bld) 11.6 % High 0-10 [facility] Comment on above: Performed By: #### L 100.0100 ####[facility] [address] [place], [address] Neutrophils/100 WBC (Bld) 54.8 % Normal 47-70 [facility] Comment on above: Performed By: #### L 100.0100 ####[facility] [address] [place], [address] Nucleated RBC (Bld) [#/Vol] 0.9 10*3/uL Normal 0-5 [facility] Comment on above: Performed By: #### L 100.0100 ####[facility] [address] [place], [address] Platelet mean volume (Bld) [Entitic vol] 10.5 fL Normal 6.2-12.0 [facility] Comment on above: Performed By: #### L 100.0100 ####[facility] [address] [place], [address] Platelets (Bld) [#/Vol] 229 10*3/uL Normal 150-450 [facility] Comment on above: Performed By: #### L 100.0100 ####[facility] [address] [place], [address] RBC (Bld) [#/Vol] 2.55 10*6/uL Low 4.2-5.4 [facility] Comment on above: Performed By: #### L 100.0100 ####[facility] [address] [place], [address] RDW SD 59.5 fl High 35.1-43.9 [facility] Comment on above: Performed By: #### L 100.0100 ####[facility] [address] [place], [address] WBC (Bld) [#/Vol] 5.8 10*3/uL Normal 4.4-11.0 [facility] Comment on above: Performed By: #### L 100.0100 ####[facility] [address] [place], [address] Prothrombin Time w/INRon INR Coag (PPP) [Relative time] 1.9 {INR} Normal [facility] Comment on above: Performed By: #### L 300.3900 ####[facility] [address] [place], [address] PT Coag (PPP) [Time] 22.0 s High 11.7-14.9 [facility] Comment on above: Performed By: #### L 300.3900 ####[facility] [address] [place], [address] Type AND Screenon 03-18-2024 Ab SCREEN GEL Negative Normal [facility] Comment on above: Order Comment: CMV N EG? NNumber of units to transfuse: 1Reason for Ordering Blood: AcuteAre the blood/blood products to be transfused? YIs the patient having/had surgery? Korey Wolf Performed By: #### B CATRACHO TRINIDAD ####[facility] [address] [place], [address] Bedside Glucoseon 03-17-2024 FINGERSTICK GLU 140 mg/dL High 74-106 [facility] Comment on above: Result Comment: LEVI GEMENT OF PATIENT CARE PER NURSING PROTOCOL Performed By: #### L 501.080 ####[facility] [address] [place], [address] FINGERSTICK GLU 108 mg/dL High 74-106 [facility] Comment on above: Result Comment: LEVI GEMENT OF PATIENT CARE PER NURSING PROTOCOL Performed By: #### L 501.080 ####[facility] [address] [place], [address] FINGERSTICK GLU 172 mg/dL High -106 [facility] Comment on above: Result Comment: LEVI GEMENT OF PATIENT CARE PER NURSING PROTOCOL Performed By: #### L 501.080 ####[facility] [address] [place], [address] FINGERSTICK GLU 142 mg/dL High [facility]106 [facility] Comment on above: Result Comment: LEVI GEMENT OF PATIENT CARE PER NURSING PROTOCOL Performed By: #### L 501.080 ####[facility] [address] [place], [address] Partial Thromboplast Timeon 03-17-2024 aPTT Coag (Bld) [Time] 78.3 s High 24.1-36.[address] [facility] Comment on above: Performed By: #### L 300.4310 ####[facility] [address] [place], [address] aPTT Coag (Bld) [Time] 85.5 s High 24.1-36.[address] [facility] Comment on above: Order Comment: Comme nts: heparin drip, time sensitive Performed By: #### L 300.4310 ####[facility] [address] [place], [address] aPTT Coag (Bld) [Time] 82.6 s High 24.1-36.[address] [facility] Comment on above: Order Comment: Comme nts: heparin drip, time sensitive Performed By: #### L 300.4310 ####[facility] [address] [place], [address] Prothrombin Time w/INRon INR Coag (PPP) [Relative time] 1.3 {INR} Normal [facility] Comment on above: Performed By: #### L 300.3900 ####[facility] [address] [place], [address] PT Coag (PPP) [Time] 16.2 s High 11.7-14.9 [facility] Comment on above: Performed By: #### L 300.3900 ####[facility] [address] [place], [address] Bedside Glucoseon 03-16-2024 FINGERSTICK GLU 144 mg/dL High 74-106 [facility] Comment on above: Result Comment: LEVI GEMENT OF PATIENT CARE PER NURSING PROTOCOL Performed By: #### L 501.080 ####[facility] [address] [place], [address] FINGERSTICK GLU 140 mg/dL High 74-106 [facility] Comment on above: Result Comment: LEVI GEMENT OF PATIENT CARE PER NURSING PROTOCOL Performed By: #### L 501.080 ####[facility] [address] [place], [address] FINGERSTICK GLU 129 mg/dL High 74-106 [facility] Comment on above: Result Comment: LEVI GEMENT OF PATIENT CARE PER NURSING PROTOCOL Performed By: #### L 501.080 ####[facility] [address] [place], [address] FINGERSTICK GLU 131 mg/dL High 74-106 [facility] Comment on above: Result Comment: LEVI HYDE OF PATIENT CARE PER NURSING PROTOCOL Performed By: #### L 501.080 ####[facility] [address] [place], [address] Partial Thromboplast Timeon 03-16-2024 aPTT Coag (Bld) [Time] 79.3 s High 24.1-36.[address] [facility] Comment on above: Performed By: #### L 300.4310 ####[facility] [address] [place], [address] Vancomycin, Trough Levelon 1 05-16-2023 VANCO, TROUGH 13.5 ug/mL Normal 5.0-15.0 [facility] Comment on above: Order Comment: 1400 Result Comment: VANC OMYCIN STANDARED DRUG THERAPY TROUGH LEVEL: 5.0 - 15.0 mg/LVANCOMYCIN HIGH INTENSITY THERAPY TROUGH LEVEL: 15.0 - 20.0 mg/LHigh Intensity therapy recommended for serious lifethreatening infections include:- Rnnscwkprl-Apkrttmmcbeb-Clybhwftv (Ventilator/Healtcare Associated)-SepsisPLEASE CONTACT PHARMACY SERVICES (#8066) FOR INTERPRETATIONOF RESULTS. Performed By: #### L 501.8806 ####[facility] [address] [place], [address] Basic Metabolic Profile (BMP )on 03-15-2024 BUN/CRE 20.1 RATIO High 10-20 [facility] Comment on above: Performed By: #### L 500.2500, L300.4310, L100.0100, L300.3900 ####[facility] [address] [place], [address] CA,Total 8.5 mg/dL Normal 8.5-10.1 [facility] Comment on above: Performed By: #### L 500.2500, L300.4310, L100.0100, L300.3900 ####[facility] [address] [place], [address] Chloride [Moles/Vol] 110 mmol/L High 98-107 [facility] Comment on above: Performed By: #### L 500.2500, L300.4310, L100.0100, L300.3900 ####[facility] [address] [place], [address] CO2 [Moles/Vol] 26.0 mmol/L Normal 21.0-32.0 [facility] Comment on above: Performed By: #### L 500.2500, L300.4310, L100.0100, L300.3900 ####[facility] [address] [place], [address] Creatinine [Mass/Vol] 1.00 mg/dL Normal 0.55-1.02 [facility] Comment on above: Result Comment: The validity of the calculated GFR GFRAA in patients over70 years has not been determined. Clinical correlation isessential. Performed By: #### L 500.2500, L300.4310, L100.0100, L300.3900 ####[facility] [address] [place], [address] ECRCL 37.84 ml/min Normal [facility] Comment on above: Performed By: #### L 500.2500, L300.4310, L100.0100, L300.3900 ####[facility] [address] [place], [address] EST GFR - AA 68 mL/min Normal >60 [facility] Comment on above: Result Comment: Afri can Portuguese GFR Calc Performed By: #### L 500.2500, L300.4310, L100.0100, L300.3900 ####[facility] [address] [place], [address] GAP 4 Low 5-15 [facility] Comment on above: Performed By: #### L 500.2500, L300.4310, L100.0100, L300.3900 ####[facility] [address] [place], [address] GFR/1.73 sq M.predicted among non-blacks MDRD (S/P/Bld) [Vol rate/Area] 56 mL/min/{1.73_m2} Low >60 [facility] Comment on above: Result Comment: Non- GFR Calc Performed By: #### L 500.2500, L300.4310, L100.0100, L300.3900 ####[facility] [address] [place], [address] Glucose [Mass/Vol] 134 mg/dL High 74-106 [facility] Comment on above: Result Comment: Fast ing Glucose result greater than or equal to 126 mg/dLsuggests DIABETES MELLITUS per A.D.A. criteria. Performed By: #### L 500.2500, L300.4310, L100.0100, L300.3900 ####[facility] [address] [place], [address] Potassium [Moles/Vol] 3.4 mmol/L Low 3.5-5.1 [facility] Comment on above: Performed By: #### L 500.2500, L300.4310, L100.0100, L300.3900 ####[facility] [address] [place], [address] Sodium [Moles/Vol] 140 mmol/L Normal 136-145 [facility] Comment on above: Performed By: #### L 500.2500, L300.4310, L100.0100, L300.3900 ####[facility] [address] [place], [address] Urea nitrogen [Mass/Vol] 20 mg/dL High 7-18 [facility] Comment on above: Performed By: #### L 500.2500, L300.4310, L100.0100, L300.3900 ####[facility] [address] [place], [address] Bedside Glucoseon 03-15-2024 FINGERSTICK GLU 137 mg/dL High [facility]106 [facility] Comment on above: Result Comment: LEVI GEMENT OF PATIENT CARE PER NURSING PROTOCOL Performed By: #### L 501.080 ####[facility] [address] [place], [address] FINGERSTICK GLU 130 mg/dL High 74-106 [facility] Comment on above: Result Comment: LEVI GEMENT OF PATIENT CARE PER NURSING PROTOCOL Performed By: #### L 501.080 ####[facility] [address] [place], [address] FINGERSTICK GLU 116 mg/dL High [facility]106 [facility] Comment on above: Result Comment: LEVI GEMENT OF PATIENT CARE PER NURSING PROTOCOL Performed By: #### L 501.080 ####[facility] [address] [place], [address] FINGERSTICK GLU 132 mg/dL High [facility]106 [facility] Comment on above: Result Comment: LEVI GEMENT OF PATIENT CARE PER NURSING PROTOCOL Performed By: #### L 501.080 ####[facility] [address] [place], [address] CBC W/Diff, Automatedon 03-02 Absolute Lymph 1.66 X10 3/uL Normal 0.83-4.51 [facility] Comment on above: Performed By: #### L 500.2500, L300.4310, L100.0100, L300.3900 ####[facility] [address] [place], [address] Absolute Neut 5.3 X10 3/uL Normal 2.0-7.7 [facility] Comment on above: Performed By: #### L 500.2500, L300.4310, L100.0100, L300.3900 ####[facility] [address] [place], [address] Basophils/100 WBC (Bld) 0.8 % Normal 0-1 [facility] Comment on above: Performed By: #### L 500.2500, L300.4310, L100.0100, L300.3900 ####[facility] [address] [place], [address] Eosinophils/100 WBC (Bld) 1.4 % Normal 0-5 [facility] Comment on above: Performed By: #### L 500.2500, L300.4310, L100.0100, L300.3900 ####[facility] [address] [place], [address] Erythrocyte distribution width (RBC) [Ratio] 17.5 % High 11.6-14.6 [facility] Comment on above: Performed By: #### L 500.2500, L300.4310, L100.0100, L300.3900 ####[facility] [address] [place], [address] Hematocrit (Bld) [Volume fraction] 28.0 % Low 37-47 [facility] Comment on above: Performed By: #### L 500.2500, L300.4310, L100.0100, L300.3900 ####[facility] [address] [place], [address] Hemoglobin (Bld) [Mass/Vol] 9.2 g/dL Low 12.0-15.0 [facility] Comment on above: Performed By: #### L 500.2500, L300.4310, L100.0100, L300.3900 ####[facility] [address] [place], [address] IG% 0.600 Normal 0.0-0.9 [facility] Comment on above: Result Comment: IG% - Immature Granulocytes (promyelocytes, myelocytes andmetamyelocytes) > 1% indicates that a LEFT SHIFT is Present. Performed By: #### L 500.2500, L300.4310, L100.0100, L300.3900 ####[facility] [address] [place], [address] Lymphocytes/100 WBC (Bld) 21.1 % Normal 19-41 [facility] Comment on above: Performed By: #### L 500.2500, L300.4310, L100.0100, L300.3900 ####[facility] [address] [place], [address] MCH (RBC) [Entitic mass] 30.9 pg Normal 27.0-32.0 [facility] Comment on above: Performed By: #### L 500.2500, L300.4310, L100.0100, L300.3900 ####[facility] [address] [place], [address] MCHC (RBC) [Mass/Vol] 32.9 g/dL Normal 32-36 [facility] Comment on above: Performed By: #### L 500.2500, L300.4310, L100.0100, L300.3900 ####[facility] [address] [place], [address] MCV (RBC) [Entitic vol] 94.0 fL Normal 81-99 [facility] Comment on above: Performed By: #### L 500.2500, L300.4310, L100.0100, L300.3900 ####[facility] [address] [place], [address] Monocytes/100 WBC (Bld) 8.9 % Normal 0-10 [facility] Comment on above: Performed By: #### L 500.2500, L300.4310, L100.0100, L300.3900 ####[facility] [address] [place], [address] Neutrophils/100 WBC (Bld) 67.2 % Normal 47-70 [facility] Comment on above: Performed By: #### L 500.2500, L300.4310, L100.0100, L300.3900 ####[facility] [address] [place], [address] Nucleated RBC (Bld) [#/Vol] 0.3 10*3/uL Normal 0-5 [facility] Comment on above: Performed By: #### L 500.2500, L300.4310, L100.0100, L300.3900 ####[facility] [address] [place], [address] Platelet mean volume (Bld) [Entitic vol] 10.1 fL Normal 6.2-12.0 [facility] Comment on above: Performed By: #### L 500.2500, L300.4310, L100.0100, L300.3900 ####[facility] [address] [place], [address] Platelets (Bld) [#/Vol] 165 10*3/uL Normal 150-450 [facility] Comment on above: Performed By: #### L 500.2500, L300.4310, L100.0100, L300.3900 ####[facility] [address] [place], [address] RBC (Bld) [#/Vol] 2.98 10*6/uL Low 4.2-5.4 [facility] Comment on above: Performed By: #### L 500.2500, L300.4310, L100.0100, L300.3900 ####[facility] [address] [place], [address] RDW SD 59.0 fl High 35.1-43.9 [facility] Comment on above: Performed By: #### L 500.2500, L300.4310, L100.0100, L300.3900 ####[facility] [address] [place], [address] WBC (Bld) [#/Vol] 7.9 10*3/uL Normal 4.4-11.0 [facility] Comment on above: Performed By: #### L 500.2500, L300.4310, L100.0100, L300.3900 ####[facility] [address] [place], [address] Decalcification bone/plaqueo n 03-15-2024 Decalcification bone/plaque Normal [facility] Comment on above: Performed By: #### P DEC ####[facility] [address] [place], [address] Foot min 3 Viewson 4 Foot min 3 Views Normal [facility] MR/POSTOP.ANEon 03-15-2024 MR/POSTOP.ANE Normal [facility] Operative Reporton 4 Operative Report Normal [facility] Partial Thromboplast Timeon 03-15-2024 aPTT Coag (Bld) [Time] 29.4 s Normal 24.1-36.[address] [facility] Comment on above: Performed By: #### L 500.2500, L300.4310, L100.0100, L300.3900 ####[facility] [address] [place], [address] Prothrombin Time w/INRon INR Coag (PPP) [Relative time] 1.1 {INR} Normal [facility] Comment on above: Performed By: #### L 500.2500, L300.4310, L100.0100, L300.3900 ####[facility] [address] [place], [address] PT Coag (PPP) [Time] 14.3 s Normal 11.7-14.9 [facility] Comment on above: Performed By: #### L 500.2500, L300.4310, L100.0100, L300.3900 ####[facility] [address] [place], [address] Bedside Glucoseon 03-14-2024 FINGERSTICK GLU 146 mg/dL High 74-106 [facility] Comment on above: Result Comment: LEVI GEMENT OF PATIENT CARE PER NURSING PROTOCOL Performed By: #### L 501.080 ####[facility] [address] [place], [address] FINGERSTICK GLU 161 mg/dL High 74-106 [facility] Comment on above: Result Comment: LEVI GEMENT OF PATIENT CARE PER NURSING PROTOCOL Performed By: #### L 501.080 ####[facility] [address] [place], [address] FINGERSTICK GLU 118 mg/dL High -106 [facility] Comment on above: Result Comment: LEVI GEMENT OF PATIENT CARE PER NURSING PROTOCOL Performed By: #### L 501.080 ####[facility] [address] [place], [address] FINGERSTICK GLU 115 mg/dL High [facility]106 [facility] Comment on above: Result Comment: LEVI GEMENT OF PATIENT CARE PER NURSING PROTOCOL Performed By: #### L 501.080 ####[facility] [address] [place], [address] FINGERSTICK GLU 139 mg/dL High -106 [facility] Comment on above: Result Comment: LEVI GEMENT OF PATIENT CARE PER NURSING PROTOCOL Performed By: #### L 501.080 ####[facility] [address] [place], [address] CBC W/Diff, Automatedon 03-02 Absolute Lymph 1.65 X10 3/uL Normal 0.83-4.51 [facility] Comment on above: Performed By: #### L 100.0100 ####[facility] [address] [place], [address] Absolute Neut 6.7 X10 3/uL Normal 2.0-7.7 [facility] Comment on above: Performed By: #### L 100.0100 ####[facility] [address] [place], [address] Basophils/100 WBC (Bld) 0.4 % Normal 0-1 [facility] Comment on above: Performed By: #### L 100.0100 ####[facility] [address] [place], [address] Eosinophils/100 WBC (Bld) 0.3 % Normal 0-5 [facility] Comment on above: Performed By: #### L 100.0100 ####[facility] [address] [place], [address] Erythrocyte distribution width (RBC) [Ratio] 17.7 % High 11.6-14.6 [facility] Comment on above: Performed By: #### L 100.0100 ####[facility] [address] [place], [address] Hematocrit (Bld) [Volume fraction] 28.3 % Low 37-47 [facility] Comment on above: Performed By: #### L 100.0100 ####[facility] [address] [place], [address] Hemoglobin (Bld) [Mass/Vol] 9.4 g/dL Low 12.0-15.0 [facility] Comment on above: Performed By: #### L 100.0100 ####[facility] [address] [place], [address] IG% 0.400 Normal 0.0-0.9 [facility] Comment on above: Result Comment: IG% - Immature Granulocytes (promyelocytes, myelocytes andmetamyelocytes) > 1% indicates that a LEFT SHIFT is Present. Performed By: #### L 100.0100 ####[facility] [address] [place], [address] Lymphocytes/100 WBC (Bld) 17.7 % Low 19-41 [facility] Comment on above: Performed By: #### L 100.0100 ####[facility] [address] [place], [address] MCH (RBC) [Entitic mass] 30.6 pg Normal 27.0-32.0 [facility] Comment on above: Performed By: #### L 100.0100 ####[facility] [address] [place], [address] MCHC (RBC) [Mass/Vol] 33.2 g/dL Normal 32-36 [facility] Comment on above: Performed By: #### L 100.0100 ####[facility] [address] [place], [address] MCV (RBC) [Entitic vol] 92.2 fL Normal 81-99 [facility] Comment on above: Performed By: #### L 100.0100 ####[facility] [address] [place], [address] Monocytes/100 WBC (Bld) 9.1 % Normal 0-10 [facility] Comment on above: Performed By: #### L 100.0100 ####[facility] [address] [place], [address] Neutrophils/100 WBC (Bld) 72.1 % High 47-70 [facility] Comment on above: Performed By: #### L 100.0100 ####[facility] [address] [place], [address] Nucleated RBC (Bld) [#/Vol] 0.2 10*3/uL Normal 0-5 [facility] Comment on above: Performed By: #### L 100.0100 ####[facility] [address] [place], [address] Platelet mean volume (Bld) [Entitic vol] 9.3 fL Normal 6.2-12.0 [facility] Comment on above: Performed By: #### L 100.0100 ####[facility] [address] [place], [address] Platelets (Bld) [#/Vol] 150 10*3/uL Normal 150-450 [facility] Comment on above: Performed By: #### L 100.0100 ####[facility] [address] [place], [address] RBC (Bld) [#/Vol] 3.07 10*6/uL Low 4.2-5.4 [facility] Comment on above: Performed By: #### L 100.0100 ####[facility] [address] [place], [address] RDW SD 58.8 fl High 35.1-43.9 [facility] Comment on above: Performed By: #### L 100.0100 ####[facility] [address] [place], [address] WBC (Bld) [#/Vol] 9.3 10*3/uL Normal 4.4-11.0 [facility] Comment on above: Performed By: #### L 100.0100 ####[facility] [address] [place], [address] Absolute Lymph 1.92 X10 3/uL Normal 0.83-4.51 [facility] Comment on above: Performed By: #### L 100.0100 ####[facility] [address] [place], [address] Absolute Neut 6.5 X10 3/uL Normal 2.0-7.7 [facility] Comment on above: Performed By: #### L 100.0100 ####[facility] [address] [place], [address] Basophils/100 WBC (Bld) 0.3 % Normal 0-1 [facility] Comment on above: Performed By: #### L 100.0100 ####[facility] [address] [place], [address] Eosinophils/100 WBC (Bld) 0.3 % Normal 0-5 [facility] Comment on above: Performed By: #### L 100.0100 ####[facility] [address] [place], [address] Erythrocyte distribution width (RBC) [Ratio] 17.7 % High 11.6-14.6 [facility] Comment on above: Performed By: #### L 100.0100 ####[facility] [address] [place], [address] Hematocrit (Bld) [Volume fraction] 30.2 % Low 37-47 [facility] Comment on above: Performed By: #### L 100.0100 ####[facility] [address] [place], [address] Hemoglobin (Bld) [Mass/Vol] 9.6 g/dL Low 12.0-15.0 [facility] Comment on above: Performed By: #### L 100.0100 ####[facility] [address] [place], [address] IG% 0.300 Normal 0.0-0.9 [facility] Comment on above: Result Comment: IG% - Immature Granulocytes (promyelocytes, myelocytes andmetamyelocytes) > 1% indicates that a LEFT SHIFT is Present. Performed By: #### L 100.0100 ####[facility] [address] [place], [address] Lymphocytes/100 WBC (Bld) 20.4 % Normal 19-41 [facility] Comment on above: Performed By: #### L 100.0100 ####[facility] [address] [place], [address] MCH (RBC) [Entitic mass] 30.2 pg Normal 27.0-32.0 [facility] Comment on above: Performed By: #### L 100.0100 ####[facility] [address] [place], [address] MCHC (RBC) [Mass/Vol] 31.8 g/dL Low 32-36 [facility] Comment on above: Performed By: #### L 100.0100 ####[facility] [address] [place], [address] MCV (RBC) [Entitic vol] 95.0 fL Normal 81-99 [facility] Comment on above: Performed By: #### L 100.0100 ####[facility] [address] [place], [address] Monocytes/100 WBC (Bld) 9.8 % Normal 0-10 [facility] Comment on above: Performed By: #### L 100.0100 ####[facility] [address] [place], [address] Neutrophils/100 WBC (Bld) 68.9 % Normal 47-70 [facility] Comment on above: Performed By: #### L 100.0100 ####[facility] [address] [place], [address] Nucleated RBC (Bld) [#/Vol] 0 10*3/uL Normal 0-5 [facility] Comment on above: Performed By: #### L 100.0100 ####[facility] [address] [place], [address] Platelet mean volume (Bld) [Entitic vol] 10.2 fL Normal 6.2-12.0 [facility] Comment on above: Performed By: #### L 100.0100 ####[facility] [address] [place], [address] Platelets (Bld) [#/Vol] 159 10*3/uL Normal 150-450 [facility] Comment on above: Performed By: #### L 100.0100 ####[facility] [address] [place], [address] RBC (Bld) [#/Vol] 3.18 10*6/uL Low 4.2-5.4 [facility] Comment on above: Performed By: #### L 100.0100 ####[facility] [address] [place], [address] RDW SD 60.9 fl High 35.1-43.9 [facility] Comment on above: Performed By: #### L 100.0100 ####[facility] [address] [place], [address] WBC (Bld) [#/Vol] 9.4 10*3/uL Normal 4.4-11.0 [facility] Comment on above: Performed By: #### L 100.0100 ####[facility] [address] [place], [address] HH, Hemoglobin AND Hematocr iton 03-14-2024 Hematocrit (Bld) [Volume fraction] 28.1 % Low 37-47 [facility] Comment on above: Performed By: #### L 100.0600 ####[facility] [address] [place], [address] Hemoglobin (Bld) [Mass/Vol] 9.4 g/dL Low 12.0-15.0 [facility] Comment on above: Performed By: #### L 100.0600 ####[facility] [address] [place], [address] Hemoglobinon 03-14-2024 Hemoglobin (Bld) [Mass/Vol] 9.1 g/dL Low 12.0-15.0 [facility] Comment on above: Performed By: #### L 100.1300 ####[facility] [address] [place], [address] Partial Thromboplast Timeon 03-14-2024 aPTT Coag (Bld) [Time] 30.0 s Normal 24.1-36.[address] [facility] Comment on above: Performed By: #### L 300.4310 ####[facility] [address] [place], [address] aPTT Coag (Bld) [Time] 27.3 s Normal 24.1-36.[address] [facility] Comment on above: Performed By: #### L 300.3900, L300.4310 ####[facility] [address] [place], [address] Prothrombin Time w/INRon INR Coag (PPP) [Relative time] 1.1 {INR} Normal [facility] Comment on above: Performed By: #### L 300.3900, L300.4310 ####[facility] [address] [place], [address] PT Coag (PPP) [Time] 14.6 s Normal 11.7-14.9 [facility] Comment on above: Performed By: #### L 300.3900, L300.4310 ####[facility] [address] [place], [address] Serum Creatinine AND GFRon 05-14-2023 Creatinine [Mass/Vol] 1.20 mg/dL High 0.55-1.02 [facility] Comment on above: Result Comment: The validity of the calculated GFR GFRAA in patients over70 years has not been determined. Clinical correlation isessential. Performed By: #### L 501.1105 ####[facility] [address] [place], [place], [address] ECRCL 31.54 ml/min Normal [facility] Comment on above: Performed By: #### L 501.1105 ####[facility] [address] [place], [place], [address] EST GFR - AA 55 mL/min Low >60 [facility] Comment on above: Result Comment: Afri can Portuguese GFR Calc Performed By: #### L 501.1105 ####[facility] [address] [place], [place], [address] GFR/1.73 sq M.predicted among non-blacks MDRD (S/P/Bld) [Vol rate/Area] 45 mL/min/{1.73_m2} Low >60 [facility] Comment on above: Result Comment: Non- GFR Calc Performed By: #### L 501.1105 ####[facility] [address] [place], [place], [id number] Vancomycin, Random Levelon 1 05-14-2023 VANCO, RANDOM 16.6 ug/mL High 0.0-15.0 [facility] Comment on above: Result Comment: VANC OMYCIN STANDARD DRUG THERAPY: CRITICAL VALUE IS > 15.0 mg/LVANCOMYCIN HIGH INTENSITY THERAPY: CRITICAL VALUE IS > 20.0 mg/LPLEASE CONTACT PHARMACY SERVICES (#9515) FOR INTERPRETATIONOF RESULTS. THIS RESULT DOES NOT REPRESENT A PEAK OR TROUGHLEVEL FOR THIS DRUG. Performed By: #### L 501.8850 ####[facility] [address] [place], [place], [address] Vancomycin, Trough Levelon 1 05-14-2023 VANCO, TROUGH 23.6 ug/mL High 5.0-15.0 [facility] Comment on above: Order Comment: Comme nts: Trough to be drawn 30 mins prior to scheduled [id number] Result Comment: VANC OMYCIN STANDARED DRUG THERAPY TROUGH LEVEL: 5.0 - 15.0 mg/LVANCOMYCIN HIGH INTENSITY THERAPY TROUGH LEVEL: 15.0 - 20.0 mg/LHigh Intensity therapy recommended for serious lifethreatening infections include:- Ggqunzuqkt-Myukzlhdbttp-Rkrtbyegd (Ventilator/Healtcare Associated)-SepsisPLEASE CONTACT PHARMACY SERVICES (#6940) FOR INTERPRETATIONOF RESULTS. Performed By: #### L 501.8820 ####[facility] [address] [place], [address] 12 Lead EKGon 03-13-2024 12 Lead EKG Normal [facility] Basic Metabolic Profile (BMP )on 03-13-2024 BUN/CRE 14.0 RATIO Normal 10-20 [facility] Comment on above: Performed By: #### L 100.0100, L500.2500 ####[facility] [address] [place], [address] CA,Total 8.9 mg/dL Normal 8.5-10.1 [facility] Comment on above: Performed By: #### L 100.0100, L500.2500 ####[facility] [address] [place], [address] Chloride [Moles/Vol] 112 mmol/L High 98-107 [facility] Comment on above: Performed By: #### L 100.0100, L500.2500 ####[facility] [address] [place], [address] CO2 [Moles/Vol] 19.0 mmol/L Low 21.0-32.0 [facility] Comment on above: Performed By: #### L 100.0100, L500.2500 ####[facility] [address] [place], [address] Creatinine [Mass/Vol] 1.36 mg/dL High 0.55-1.02 [facility] Comment on above: Result Comment: The validity of the calculated GFR GFRAA in patients over70 years has not been determined. Clinical correlation isessential. Performed By: #### L 100.0100, L500.2500 ####[facility] [address] [place], [address] ECRCL 28.89 ml/min Normal [facility] Comment on above: Performed By: #### L 100.0100, L500.2500 ####[facility] [address] [place], [address] EST GFR - AA 48 mL/min Low >60 [facility] Comment on above: Result Comment: Afri can Portuguese GFR Calc Performed By: #### L 100.0100, L500.2500 ####[facility] [address] [place], [address] GAP 10 Normal 5-15 [facility] Comment on above: Performed By: #### L 100.0100, L500.2500 ####[facility] [address] [place], [address] GFR/1.73 sq M.predicted among non-blacks MDRD (S/P/Bld) [Vol rate/Area] 39 mL/min/{1.73_m2} Low >60 [facility] Comment on above: Result Comment: Non- GFR Calc Performed By: #### L 100.0100, L500.2500 ####[facility] [address] [place], [address] Glucose [Mass/Vol] 186 mg/dL High 74-106 [facility] Comment on above: Result Comment: Fast ing Glucose result greater than or equal to 126 mg/dLsuggests DIABETES MELLITUS per A.D.A. criteria. Performed By: #### L 100.0100, L500.2500 ####[facility] [address] [place], [address] Potassium [Moles/Vol] 3.8 mmol/L Normal 3.5-5.1 [facility] Comment on above: Performed By: #### L 100.0100, L500.2500 ####[facility] [address] [place], [address] Sodium [Moles/Vol] 141 mmol/L Normal 136-145 [facility] Comment on above: Performed By: #### L 100.0100, L500.2500 ####[facility] [address] [place], [address] Urea nitrogen [Mass/Vol] 19 mg/dL High 7-18 [facility] Comment on above: Performed By: #### L 100.0100, L500.2500 ####[facility] [address] [place], [address] Bedside Glucoseon 03-13-2024 FINGERSTICK GLU 189 mg/dL High 74-106 [facility] Comment on above: Result Comment: LEVI GEMENT OF PATIENT CARE PER NURSING PROTOCOL Performed By: #### L 501.080 ####[facility] [address] [place], [address] FINGERSTICK GLU 179 mg/dL High 74-106 [facility] Comment on above: Result Comment: LEVI GEMENT OF PATIENT CARE PER NURSING PROTOCOL Performed By: #### L 501.080 ####[facility] [address] [place], [address] FINGERSTICK GLU 155 mg/dL High 74-106 [facility] Comment on above: Result Comment: LEVI GEMENT OF PATIENT CARE PER NURSING PROTOCOL Performed By: #### L 501.080 ####[facility] [address] [place], [address] CBC W/Diff, Automatedon 03-02 Absolute Lymph 1.20 X10 3/uL Normal 0.83-4.51 [facility] Comment on above: Performed By: #### L 100.0100, L500.2500 ####[facility] [address] [place], [address] Absolute Neut 10.8 X10 3/uL High 2.0-7.7 [facility] Comment on above: Performed By: #### L 100.0100, L500.2500 ####[facility] [address] [place], [address] Basophils/100 WBC (Bld) 0.2 % Normal 0-1 [facility] Comment on above: Performed By: #### L 100.0100, L500.2500 ####[facility] [address] [place], [address] Eosinophils/100 WBC (Bld) 0.0 % Normal 0-5 [facility] Comment on above: Performed By: #### L 100.0100, L500.2500 ####[facility] [address] [place], [address] Erythrocyte distribution width (RBC) [Ratio] 17.8 % High 11.6-14.6 [facility] Comment on above: Performed By: #### L 100.0100, L500.2500 ####[facility] [address] [place], [address] Hematocrit (Bld) [Volume fraction] 29.8 % Low 37-47 [facility] Comment on above: Performed By: #### L 100.0100, L500.2500 ####[facility] [address] [place], [address] Hemoglobin (Bld) [Mass/Vol] 9.8 g/dL Low 12.0-15.0 [facility] Comment on above: Performed By: #### L 100.0100, L500.2500 ####[facility] [address] [place], [address] IG% 0.700 Normal 0.0-0.9 [facility] Comment on above: Result Comment: IG% - Immature Granulocytes (promyelocytes, myelocytes andmetamyelocytes) > 1% indicates that a LEFT SHIFT is Present. Performed By: #### L 100.0100, L500.2500 ####[facility] [address] [place], [address] Lymphocytes/100 WBC (Bld) 9.4 % Low 19-41 [facility] Comment on above: Performed By: #### L 100.0100, L500.2500 ####[facility] [address] [place], [address] MCH (RBC) [Entitic mass] 31.0 pg Normal 27.0-32.0 [facility] Comment on above: Performed By: #### L 100.0100, L500.2500 ####[facility] [address] [place], [address] MCHC (RBC) [Mass/Vol] 32.9 g/dL Normal 32-36 [facility] Comment on above: Performed By: #### L 100.0100, L500.2500 ####[facility] [address] [place], [address] MCV (RBC) [Entitic vol] 94.3 fL Normal 81-99 [facility] Comment on above: Performed By: #### L 100.0100, L500.2500 ####[facility] [address] [place], [address] Monocytes/100 WBC (Bld) 5.3 % Normal 0-10 [facility] Comment on above: Performed By: #### L 100.0100, L500.2500 ####[facility] [address] [place], [address] Neutrophils/100 WBC (Bld) 84.4 % High 47-70 [facility] Comment on above: Performed By: #### L 100.0100, L500.2500 ####[facility] [address] [place], [address] Nucleated RBC (Bld) [#/Vol] 0.2 10*3/uL Normal 0-5 [facility] Comment on above: Performed By: #### L 100.0100, L500.2500 ####[facility] [address] [place], [address] Platelet mean volume (Bld) [Entitic vol] 9.5 fL Normal 6.2-12.0 [facility] Comment on above: Performed By: #### L 100.0100, L500.2500 ####[facility] [address] [place], [address] Platelets (Bld) [#/Vol] 231 10*3/uL Normal 150-450 [facility] Comment on above: Performed By: #### L 100.0100, L500.2500 ####[facility] [address] [place], [address] RBC (Bld) [#/Vol] 3.16 10*6/uL Low 4.2-5.4 [facility] Comment on above: Performed By: #### L 100.0100, L500.2500 ####[facility] [address] [place], [address] RDW SD 61.0 fl High 35.1-43.9 [facility] Comment on above: Performed By: #### L 100.0100, L500.2500 ####[facility] [address] [place], [address] WBC (Bld) [#/Vol] 12.8 10*3/uL High 4.4-11.0 [facility] Comment on above: Performed By: #### L 100.0100, L500.2500 ####[facility] [address] [place], [address] Culture, Blood (WB)on 2023 CUB Blood cultures x2, from two different sites No growth in 5 days. Normal [facility] Comment on above: Performed By: #### M 200.1000 ####[facility] [address] [place], [address] Hemoglobinon 03-13-2024 Hemoglobin (Bld) [Mass/Vol] 7.5 g/dL Low 12.0-15.0 [facility] Comment on above: Performed By: #### L 100.1300 ####[facility] [address] [place], [address] Partial Thromboplast Timeon 03-13-2024 aPTT Coag (Bld) [Time] 39.8 s High 24.1-36.[address] [facility] Comment on above: Performed By: #### L 300.4310 ####[facility] [address] [place], [address] aPTT Coag (Bld) [Time] 26.9 s Normal 24.1-36.[address] [facility] Comment on above: Performed By: #### L 300.4310 ####[facility] [address] [place], [address] Prothrombin Time w/INRon INR Coag (PPP) [Relative time] 1.2 {INR} Normal [facility] Comment on above: Performed By: #### L 300.3900 ####[facility] [address] [place], [address] PT Coag (PPP) [Time] 15.2 s High 11.7-14.9 [facility] Comment on above: Performed By: #### L 300.3900 ####[facility] [address] [place], [address] ACT Activated Clotting Timeo n 03-12-2024 ACTk CLOT TIME 281 sec High 74-137 [facility] Comment on above: Performed By: #### L 9100.0100 ####[facility] [address] [place], [address] BRCon 03-12-2024 RC Normal [facility] Comment on above: Result Comment: [id number] AP RC TRANSFUSED 03/13/24 [id number] AP RC TRANSFUSED 03/13/242011 Performed By: #### B RC ####[facility] [address] [place], [address] Result Comment: [id number] AP RC NOT [id number] AP RC TRANSFUSED 03/12/24 2311 Performed By: #### B RC, BTS ####[facility] [address] [place], [address] Basic Metabolic Profile (BMP )on 03-12-2024 BUN/CRE 10.7 RATIO Normal 10-20 [facility] Comment on above: Performed By: #### L 500.2500, L100.0100 ####[facility] [address] [place], [address] CA,Total 9.5 mg/dL Normal 8.5-10.1 [facility] Comment on above: Performed By: #### L 500.2500, L100.0100 ####[facility] [address] [place], [address] Chloride [Moles/Vol] 108 mmol/L High 98-107 [facility] Comment on above: Performed By: #### L 500.2500, L100.0100 ####[facility] [address] [place], [address] CO2 [Moles/Vol] 19.0 mmol/L Low 21.0-32.0 [facility] Comment on above: Performed By: #### L 500.2500, L100.0100 ####[facility] [address] [place], [address] Creatinine [Mass/Vol] 1.12 mg/dL High 0.55-1.02 [facility] Comment on above: Result Comment: The validity of the calculated GFR GFRAA in patients over70 years has not been determined. Clinical correlation isessential. Performed By: #### L 500.2500, L100.0100 ####[facility] [address] [place], [address] ECRCL 35.09 ml/min Normal [facility] Comment on above: Performed By: #### L 500.2500, L100.0100 ####[facility] [address] [place], [address] EST GFR - AA 60 mL/min Normal >60 [facility] Comment on above: Result Comment: Afri can Portuguese GFR Calc Performed By: #### L 500.2500, L100.0100 ####[facility] [address] [place], [address] GAP 11 Normal 5-15 [facility] Comment on above: Performed By: #### L 500.2500, L100.0100 ####[facility] [address] [place], [address] GFR/1.73 sq M.predicted among non-blacks MDRD (S/P/Bld) [Vol rate/Area] 49 mL/min/{1.73_m2} Low >60 [facility] Comment on above: Result Comment: Non- GFR Calc Performed By: #### L 500.2500, L100.0100 ####[facility] [address] [place], [address] Glucose [Mass/Vol] 162 mg/dL High 74-106 [facility] Comment on above: Result Comment: Fast ing Glucose result greater than or equal to 126 mg/dLsuggests DIABETES MELLITUS per A.D.A. criteria. Performed By: #### L 500.2500, L100.0100 ####[facility] [address] [place], [address] Potassium [Moles/Vol] 3.5 mmol/L Normal 3.5-5.1 [facility] Comment on above: Result Comment: Slig ht Hemolysis, Result may be falsely increased. Performed By: #### L 500.2500, L100.0100 ####[facility] [address] [place], [address] Sodium [Moles/Vol] 138 mmol/L Normal 136-145 [facility] Comment on above: Performed By: #### L 500.2500, L100.0100 ####[facility] [address] [place], [address] Urea nitrogen [Mass/Vol] 12 mg/dL Normal 7-18 [facility] Comment on above: Performed By: #### L 500.2500, L100.0100 ####[facility] [address] [place], [address] Bedside Glucoseon 03-12-2024 FINGERSTICK GLU 224 mg/dL High 74-106 [facility] Comment on above: Result Comment: LEVI GEMENT OF PATIENT CARE PER NURSING PROTOCOL Performed By: #### L 501.080 ####[facility] [address] [place], [address] FINGERSTICK GLU 197 mg/dL High 74-106 [facility] Comment on above: Result Comment: LEVI GEMENT OF PATIENT CARE PER NURSING PROTOCOL Performed By: #### L 501.080 ####[facility] [address] [place], [address] FINGERSTICK GLU 144 mg/dL High -106 [facility] Comment on above: Result Comment: LEVI GEMENT OF PATIENT CARE PER NURSING PROTOCOL Performed By: #### L 501.080 ####[facility] [address] [place], [address] CBC W/Diff, Automatedon 03-02 Absolute Lymph 3.19 X10 3/uL Normal 0.83-4.51 [facility] Comment on above: Performed By: #### L 100.0100 ####[facility] [address] [place], [address] Absolute Neut 11.4 X10 3/uL High 2.0-7.7 [facility] Comment on above: Performed By: #### L 100.0100 ####[facility] [address] [place], [address] Basophils/100 WBC (Bld) 0.5 % Normal 0-1 [facility] Comment on above: Performed By: #### L 100.0100 ####[facility] [address] [place], [address] Eosinophils/100 WBC (Bld) 0.3 % Normal 0-5 [facility] Comment on above: Performed By: #### L 100.0100 ####[facility] [address] [place], [address] Erythrocyte distribution width (RBC) [Ratio] 15.9 % High 11.6-14.6 [facility] Comment on above: Performed By: #### L 100.0100 ####[facility] [address] [place], [address] Hematocrit (Bld) [Volume fraction] 29.4 % Low 37-47 [facility] Comment on above: Performed By: #### L 100.0100 ####[facility] [address] [place], [address] Hemoglobin (Bld) [Mass/Vol] 9.4 g/dL Low 12.0-15.0 [facility] Comment on above: Performed By: #### L 100.0100 ####[facility] [address] [place], [address] IG% 0.900 Normal 0.0-0.9 [facility] Comment on above: Result Comment: IG% - Immature Granulocytes (promyelocytes, myelocytes andmetamyelocytes) > 1% indicates that a LEFT SHIFT is Present. Performed By: #### L 100.0100 ####[facility] [address] [place], [address] Lymphocytes/100 WBC (Bld) 20.9 % Normal 19-41 [facility] Comment on above: Performed By: #### L 100.0100 ####[facility] [address] [place], [address] MCH (RBC) [Entitic mass] 31.8 pg Normal 27.0-32.0 [facility] Comment on above: Performed By: #### L 100.0100 ####[facility] [address] [place], [address] MCHC (RBC) [Mass/Vol] 32.0 g/dL Normal 32-36 [facility] Comment on above: Performed By: #### L 100.0100 ####[facility] [address] [place], [address] MCV (RBC) [Entitic vol] 99.3 fL High 81-99 [facility] Comment on above: Performed By: #### L 100.0100 ####[facility] [address] [place], [address] Monocytes/100 WBC (Bld) 2.5 % Normal 0-10 [facility] Comment on above: Performed By: #### L 100.0100 ####[facility] [address] [place], [address] Neutrophils/100 WBC (Bld) 74.9 % High 47-70 [facility] Comment on above: Performed By: #### L 100.0100 ####[facility] [address] [place], [address] Nucleated RBC (Bld) [#/Vol] 0.1 10*3/uL Normal 0-5 [facility] Comment on above: Performed By: #### L 100.0100 ####[facility] [address] [place], [address] Platelet mean volume (Bld) [Entitic vol] 9.7 fL Normal 6.2-12.0 [facility] Comment on above: Performed By: #### L 100.0100 ####[facility] [address] [place], [address] Platelets (Bld) [#/Vol] 288 10*3/uL Normal 150-450 [facility] Comment on above: Performed By: #### L 100.0100 ####[facility] [address] [place], [address] RBC (Bld) [#/Vol] 2.96 10*6/uL Low 4.2-5.4 [facility] Comment on above: Performed By: #### L 100.0100 ####[facility] [address] [place], [address] RDW SD 58.4 fl High 35.1-43.9 [facility] Comment on above: Performed By: #### L 100.0100 ####[facility] [address] [place], [address] WBC (Bld) [#/Vol] 15.2 10*3/uL High 4.4-11.0 [facility] Comment on above: Performed By: #### L 100.0100 ####[facility] [address] [place], [address] Absolute Lymph 1.83 X10 3/uL Normal 0.83-4.51 [facility] Comment on above: Performed By: #### L 500.2500, L100.0100 ####[facility] [address] [place], [address] Absolute Neut 2.9 X10 3/uL Normal 2.0-7.7 [facility] Comment on above: Performed By: #### L 500.2500, L100.0100 ####[facility] [address] [place], [address] Basophils/100 WBC (Bld) 0.9 % Normal 0-1 [facility] Comment on above: Performed By: #### L 500.2500, L100.0100 ####[facility] [address] [place], [address] Eosinophils/100 WBC (Bld) 1.9 % Normal 0-5 [facility] Comment on above: Performed By: #### L 500.2500, L100.0100 ####[facility] [address] [place], [address] Erythrocyte distribution width (RBC) [Ratio] 15.5 % High 11.6-14.6 [facility] Comment on above: Performed By: #### L 500.2500, L100.0100 ####[facility] [address] [place], [address] Hematocrit (Bld) [Volume fraction] 37.5 % Normal 37-47 [facility] Comment on above: Performed By: #### L 500.2500, L100.0100 ####[facility] [address] [place], [address] Hemoglobin (Bld) [Mass/Vol] 12.7 g/dL Normal 12.0-15.0 [facility] Comment on above: Performed By: #### L 500.2500, L100.0100 ####[facility] [address] [place], [address] IG% 0.600 Normal 0.0-0.9 [facility] Comment on above: Result Comment: IG% - Immature Granulocytes (promyelocytes, myelocytes andmetamyelocytes) > 1% indicates that a LEFT SHIFT is Present. Performed By: #### L 500.2500, L100.0100 ####[facility] [address] [place], [address] Lymphocytes/100 WBC (Bld) 33.9 % Normal 19-41 [facility] Comment on above: Performed By: #### L 500.2500, L100.0100 ####[facility] [address] [place], [address] MCH (RBC) [Entitic mass] 32.0 pg Normal 27.0-32.0 [facility] Comment on above: Performed By: #### L 500.2500, L100.0100 ####[facility] [address] [place], [address] MCHC (RBC) [Mass/Vol] 33.9 g/dL Normal 32-36 [facility] Comment on above: Performed By: #### L 500.2500, L100.0100 ####[facility] [address] [place], [address] MCV (RBC) [Entitic vol] 94.5 fL Normal 81-99 [facility] Comment on above: Performed By: #### L 500.2500, L100.0100 ####[facility] [address] [place], [address] Monocytes/100 WBC (Bld) 8.3 % Normal 0-10 [facility] Comment on above: Performed By: #### L 500.2500, L100.0100 ####[facility] [address] [place], [address] Neutrophils/100 WBC (Bld) 54.4 % Normal 47-70 [facility] Comment on above: Performed By: #### L 500.2500, L100.0100 ####[facility] [address] [place], [address] Nucleated RBC (Bld) [#/Vol] 0.4 10*3/uL Normal 0-5 [facility] Comment on above: Performed By: #### L 500.2500, L100.0100 ####[facility] [address] [place], [address] Platelet mean volume (Bld) [Entitic vol] 9.4 fL Normal 6.2-12.0 [facility] Comment on above: Performed By: #### L 500.2500, L100.0100 ####[facility] [address] [place], [address] Platelets (Bld) [#/Vol] 269 10*3/uL Normal 150-450 [facility] Comment on above: Performed By: #### L 500.2500, L100.0100 ####[facility] [address] [place], [address] RBC (Bld) [#/Vol] 3.97 10*6/uL Low 4.2-5.4 [facility] Comment on above: Performed By: #### L 500.2500, L100.0100 ####[facility] [address] [place], [address] RDW SD 53.3 fl High 35.1-43.9 [facility] Comment on above: Performed By: #### L 500.2500, L100.0100 ####[facility] [address] [place], [address] WBC (Bld) [#/Vol] 5.4 10*3/uL Normal 4.4-11.0 [facility] Comment on above: Performed By: #### L 500.2500, L100.0100 ####[facility] [address] [place], [address] MR/POSTOP.ANEon 03-12-2024 MR/POSTOP.ANE Normal [facility] MR/POSTOP.ANE Normal [facility] MR/JZJYPMIA3mo 03-12-2024 MR/POSTOPAN2 Normal [facility] MR/POSTOPAN2 Normal [facility] Operative Reporton Operative Report Normal [facility] Partial Thromboplast Timeon 03-12-2024 aPTT Coag (Bld) [Time] 57.4 s High 24.1-36.[address] [facility] Comment on above: Performed By: #### L 300.4310, L300.3900 ####[facility] [address] [place], [address] Prothrombin Time w/INRon INR Coag (PPP) [Relative time] 1.1 {INR} Normal [facility] Comment on above: Performed By: #### L 300.4310, L300.3900 ####[facility] [address] [place], [address] PT Coag (PPP) [Time] 14.3 s Normal 11.7-14.9 [facility] Comment on above: Performed By: #### L 300.4310, L300.3900 ####[facility] [address] [place], [address] Type AND Screenon 03-12-2024 ABO and Rh group Nom (Bld) Blood group A Rh(D) positive Normal [facility] Comment on above: Order Comment: CMV N EG? NComments: vascular surgery right legIs the EBL >/= 1000ml in adults or >/= 12ml/kg in children?YReason for Ordering Blood: AcuteAre the blood/blood products to be transfused? NIs the patient having/had surgery? YType [id number] Performed By: #### B RC, BTS ####[facility] [address] [place], [place], [address] Vancomycin, Trough Levelon 05-12-2023 VANCO, TROUGH 17.0 ug/mL High 5.0-15.0 [facility] Comment on above: Order Comment: Comme nts: Trough to be drawn 30 mins prior to scheduled [id number] Result Comment: VANC OMYCIN STANDARED DRUG THERAPY TROUGH LEVEL: 5.0 - 15.0 mg/LVANCOMYCIN HIGH INTENSITY THERAPY TROUGH LEVEL: 15.0 - 20.0 mg/LHigh Intensity therapy recommended for serious lifethreatening infections include:- Gzczhpspii-Sekqmlfwggil-Jbxmfdvcu (Ventilator/Healtcare Associated)-SepsisPLEASE CONTACT PHARMACY SERVICES (#0246) FOR INTERPRETATIONOF RESULTS. Performed By: #### L 501.8820 ####[facility] [address] [facility] [address] Bedside Glucoseon 03-11-2024 FINGERSTICK GLU 139 mg/dL High -106 [facility] Comment on above: Result Comment: LEVI GEMENT OF PATIENT CARE PER NURSING PROTOCOL Performed By: #### L 501.080 ####[facility] [address] [facility] [address] FINGERSTICK GLU 122 mg/dL High [address] [place] [address] Comment on above: Result Comment: LEVI GEMENT OF PATIENT CARE PER NURSING PROTOCOL Performed By: #### L 501.080 ####[facility] [address] [facility] [address] FINGERSTICK GLU 145 mg/dL High [address] [place] [address] Comment on above: Result Comment: LEVI GEMENT OF PATIENT CARE PER NURSING PROTOCOL Performed By: #### L 501.080 ####[facility] [address] [facility] [address] FINGERSTICK GLU 132 mg/dL High [address] [place] [address] Comment on above: Result Comment: LEVI GEMENT OF PATIENT CARE PER NURSING PROTOCOL Performed By: #### L 501.080 ####[facility] [address] [facility] [address] Partial Thromboplast Timeon 03-11-2024 aPTT Coag (Bld) [Time] 68.3 s High 24.1-36.[address] [facility] Comment on above: Performed By: #### L 645.7244 ####[facility] [address] [place], [address] aPTT Coag (Bld) [Time] 72.4 s High 24.1-36.[address] [facility] Comment on above: Performed By: #### L 300.4310 ####[facility] [address] [place], [address] Prothrombin Time w/INRon INR Coag (PPP) [Relative time] 1.1 {INR} Normal [facility] Comment on above: Performed By: #### L 300.3900 ####[facility] [address] [place], [address] PT Coag (PPP) [Time] 14.3 s Normal 11.7-14.9 [facility] Comment on above: Performed By: #### L 300.3900 ####[facility] [address] [place], [address] Basic Metabolic Profile (BMP )on 03-10-2024 BUN/CRE 14.8 RATIO Normal 10-20 [facility] Comment on above: Performed By: #### L 100.0100, L300.3900, L500.2500 ####[facility] [address] [place], [address] CA,Total 9.1 mg/dL Normal 8.5-10.1 [facility] Comment on above: Performed By: #### L 100.0100, L300.3900, L500.2500 ####[facility] [address] [place], [address] Chloride [Moles/Vol] 111 mmol/L High 98-107 [facility] Comment on above: Performed By: #### L 100.0100, L300.3900, L500.2500 ####[facility] [address] [place], [address] CO2 [Moles/Vol] 21.0 mmol/L Normal 21.0-32.0 [facility] Comment on above: Performed By: #### L 100.0100, L300.3900, L500.2500 ####[facility] [address] [place], [address] Creatinine [Mass/Vol] 1.08 mg/dL High 0.55-1.02 [facility] Comment on above: Result Comment: The validity of the calculated GFR GFRAA in patients over70 years has not been determined. Clinical correlation isessential. Performed By: #### L 100.0100, L300.3900, L500.2500 ####[facility] [address] [place], [address] ECRCL 36.34 ml/min Normal [facility] Comment on above: Performed By: #### L 100.0100, L300.3900, L500.2500 ####[facility] [address] [place], [address] EST GFR - AA 62 mL/min Normal >60 [facility] Comment on above: Result Comment: Afri can Portuguese GFR Calc Performed By: #### L 100.0100, L300.3900, L500.2500 ####[facility] [address] [place], [address] GAP 7 Normal 5-15 [facility] Comment on above: Performed By: #### L 100.0100, L300.3900, L500.2500 ####[facility] [address] [place], [address] GFR/1.73 sq M.predicted among non-blacks MDRD (S/P/Bld) [Vol rate/Area] 51 mL/min/{1.73_m2} Low >60 [facility] Comment on above: Result Comment: Non- GFR Calc Performed By: #### L 100.0100, L300.3900, L500.2500 ####[facility] [address] [place], [address] Glucose [Mass/Vol] 132 mg/dL High 74-106 [facility] Comment on above: Result Comment: Fast ing Glucose result greater than or equal to 126 mg/dLsuggests DIABETES MELLITUS per A.D.A. criteria. Performed By: #### L 100.0100, L300.3900, L500.2500 ####[facility] [address] [place], [address] Potassium [Moles/Vol] 3.7 mmol/L Normal 3.5-5.1 [facility] Comment on above: Performed By: #### L 100.0100, L300.3900, L500.2500 ####[facility] [address] [place], [address] Sodium [Moles/Vol] 139 mmol/L Normal 136-145 [facility] Comment on above: Performed By: #### L 100.0100, L300.3900, L500.2500 ####[facility] [address] [place], [address] Urea nitrogen [Mass/Vol] 16 mg/dL Normal 7-18 [facility] Comment on above: Performed By: #### L 100.0100, L300.3900, L500.2500 ####[facility] [address] [place], [address] Bedside Glucoseon 03-10-2024 FINGERSTICK GLU 167 mg/dL High 74-106 [facility] Comment on above: Result Comment: LEVI GEMENT OF PATIENT CARE PER NURSING PROTOCOL Performed By: #### L 501.080 ####[facility] [address] [place], [address] FINGERSTICK GLU 104 mg/dL Normal 74-106 [facility] Comment on above: Result Comment: LEVI GEMENT OF PATIENT CARE PER NURSING PROTOCOL Performed By: #### L 501.080 ####[facility] [address] [place], [address] FINGERSTICK GLU 123 mg/dL High 74-106 [facility] Comment on above: Result Comment: LEVI GEMENT OF PATIENT CARE PER NURSING PROTOCOL Performed By: #### L 501.080 ####[facility] [address] [place], [address] FINGERSTICK GLU 121 mg/dL High 74-106 [facility] Comment on above: Result Comment: LEVI GEMENT OF PATIENT CARE PER NURSING PROTOCOL Performed By: #### L 501.080 ####[facility] [address] [place], [address] CBC W/Diff, Automatedon 11-0 9-2023 Absolute Lymph 2.69 X10 3/uL Normal 0.83-4.51 [facility] Comment on above: Performed By: #### L 100.0100, L300.3900, L500.2500 ####[facility] [address] [place], [address] Absolute Neut 2.1 X10 3/uL Normal 2.0-7.7 [facility] Comment on above: Performed By: #### L 100.0100, L300.3900, L500.2500 ####[facility] [address] [place], [address] Basophils/100 WBC (Bld) 0.9 % Normal 0-1 [facility] Comment on above: Performed By: #### L 100.0100, L300.3900, L500.2500 ####[facility] [address] [place], [address] Eosinophils/100 WBC (Bld) 2.4 % Normal 0-5 [facility] Comment on above: Performed By: #### L 100.0100, L300.3900, L500.2500 ####[facility] [address] [place], [address] Erythrocyte distribution width (RBC) [Ratio] 15.8 % High 11.6-14.6 [facility] Comment on above: Performed By: #### L 100.0100, L300.3900, L500.2500 ####[facility] [address] [place], [address] Hematocrit (Bld) [Volume fraction] 37.4 % Normal 37-47 [facility] Comment on above: Performed By: #### L 100.0100, L300.3900, L500.2500 ####[facility] [address] [place], [address] Hemoglobin (Bld) [Mass/Vol] 12.0 g/dL Normal 12.0-15.0 [facility] Comment on above: Performed By: #### L 100.0100, L300.3900, L500.2500 ####[facility] [address] [place], [address] IG% 0.200 Normal 0.0-0.9 [facility] Comment on above: Result Comment: IG% - Immature Granulocytes (promyelocytes, myelocytes andmetamyelocytes) > 1% indicates that a LEFT SHIFT is Present. Performed By: #### L 100.0100, L300.3900, L500.2500 ####[facility] [address] [place], [address] Lymphocytes/100 WBC (Bld) 49.0 % High 19-41 [facility] Comment on above: Performed By: #### L 100.0100, L300.3900, L500.2500 ####[facility] [address] [place], [address] MCH (RBC) [Entitic mass] 31.3 pg Normal 27.0-32.0 [facility] Comment on above: Performed By: #### L 100.0100, L300.3900, L500.2500 ####[facility] [address] [place], [address] MCHC (RBC) [Mass/Vol] 32.1 g/dL Normal 32-36 [facility] Comment on above: Performed By: #### L 100.0100, L300.3900, L500.2500 ####[facility] [address] [place], [address] MCV (RBC) [Entitic vol] 97.4 fL Normal 81-99 [facility] Comment on above: Performed By: #### L 100.0100, L300.3900, L500.2500 ####[facility] [address] [place], [address] Monocytes/100 WBC (Bld) 8.9 % Normal 0-10 [facility] Comment on above: Performed By: #### L 100.0100, L300.3900, L500.2500 ####[facility] [address] [place], [address] Neutrophils/100 WBC (Bld) 38.6 % Low 47-70 [facility] Comment on above: Performed By: #### L 100.0100, L300.3900, L500.2500 ####[facility] [address] [place], [address] Nucleated RBC (Bld) [#/Vol] 0.4 10*3/uL Normal 0-5 [facility] Comment on above: Performed By: #### L 100.0100, L300.3900, L500.2500 ####[facility] [address] [place], [address] Platelet mean volume (Bld) [Entitic vol] 9.2 fL Normal 6.2-12.0 [facility] Comment on above: Performed By: #### L 100.0100, L300.3900, L500.2500 ####[facility] [address] [place], [address] Platelets (Bld) [#/Vol] 235 10*3/uL Normal 150-450 [facility] Comment on above: Performed By: #### L 100.0100, L300.3900, L500.2500 ####[facility] [address] [place], [address] RBC (Bld) [#/Vol] 3.84 10*6/uL Low 4.2-5.4 [facility] Comment on above: Performed By: #### L 100.0100, L300.3900, L500.2500 ####[facility] [address] [place], [address] RDW SD 56.7 fl High 35.1-43.9 [facility] Comment on above: Performed By: #### L 100.0100, L300.3900, L500.2500 ####[facility] [address] [place], [address] WBC (Bld) [#/Vol] 5.5 10*3/uL Normal 4.4-11.0 [facility] Comment on above: Performed By: #### L 100.0100, L300.3900, L500.2500 ####[facility] [address] [place], [address] Partial Thromboplast Timeon 03-10-2024 aPTT Coag (Bld) [Time] 82.4 s High 24.1-36.[address] [facility] Comment on above: Performed By: #### L 300.4310 ####[facility] [address] [place], [address] aPTT Coag (Bld) [Time] 40.0 s High 24.1-36.[address] [facility] Comment on above: Performed By: #### L 300.4310 ####[facility] [address] [place], [address] aPTT Coag (Bld) [Time] 57.4 s High 24.1-36.[address] [facility] Comment on above: Performed By: #### L 300.4310 ####[facility] [address] [place], [address] aPTT Coag (Bld) [Time] 70.5 s High 24.1-36.[address] [facility] Comment on above: Performed By: #### L 300.4310 ####[facility] [address] [place], [address] Prothrombin Time w/INRon INR Coag (PPP) [Relative time] 1.5 {INR} Normal [facility] Comment on above: Performed By: #### L 100.0100, L300.3900, L500.2500 ####[facility] [address] [place], [address] PT Coag (PPP) [Time] 17.8 s High 11.7-14.9 [facility] Comment on above: Performed By: #### L 100.0100, L300.3900, L500.2500 ####[facility] [address] [place], [address] Vancomycin, Trough Levelon 1 05-10-2023 VANCO, TROUGH 11.8 ug/mL Normal 5.0-15.0 [facility] Comment on above: Order Comment: Comme nts: Trough to be drawn 30 mins prior to scheduled [id number] Result Comment: VANC OMYCIN STANDARED DRUG THERAPY TROUGH LEVEL: 5.0 - 15.0 mg/LVANCOMYCIN HIGH INTENSITY THERAPY TROUGH LEVEL: 15.0 - 20.0 mg/LHigh Intensity therapy recommended for serious lifethreatening infections include:- Vkbhnhksus-Kummwkqdgrlx-Hbeyisvqa (Ventilator/Healtcare Associated)-SepsisPLEASE CONTACT PHARMACY SERVICES (#0581) FOR INTERPRETATIONOF RESULTS. Performed By: #### L 011.1379 ####[facility] [address] [place], [address] Basic Metabolic Profile (BMP )on 03-09-2024 BUN/CRE 17.7 RATIO Normal 10-20 [facility] Comment on above: Performed By: #### L 100.0100, L500.2500, L300.3900 ####[facility] [address] [place], [address] CA,Total 9.2 mg/dL Normal 8.5-10.1 [facility] Comment on above: Performed By: #### L 100.0100, L500.2500, L300.3900 ####[facility] [address] [place], [address] Chloride [Moles/Vol] 112 mmol/L High 98-107 [facility] Comment on above: Performed By: #### L 100.0100, L500.2500, L300.3900 ####[facility] [address] [place], [address] CO2 [Moles/Vol] 20.0 mmol/L Low 21.0-32.0 [facility] Comment on above: Performed By: #### L 100.0100, L500.2500, L300.3900 ####[facility] [address] [place], [address] Creatinine [Mass/Vol] 0.96 mg/dL Normal 0.55-1.02 [facility] Comment on above: Result Comment: The validity of the calculated GFR GFRAA in patients over70 years has not been determined. Clinical correlation isessential. Performed By: #### L 100.0100, L500.2500, L300.3900 ####[facility] [address] [place], [address] ECRCL 40.27 ml/min Normal [facility] Comment on above: Performed By: #### L 100.0100, L500.2500, L300.3900 ####[facility] [address] [place], [address] EST GFR - AA 71 mL/min Normal >60 [facility] Comment on above: Result Comment: Afri can Portuguese GFR Calc Performed By: #### L 100.0100, L500.2500, L300.3900 ####[facility] [address] [place], [address] GAP 9 Normal 5-15 [facility] Comment on above: Performed By: #### L 100.0100, L500.2500, L300.3900 ####[facility] [address] [place], [address] GFR/1.73 sq M.predicted among non-blacks MDRD (S/P/Bld) [Vol rate/Area] 59 mL/min/{1.73_m2} Low >60 [facility] Comment on above: Result Comment: Non- GFR Calc Performed By: #### L 100.0100, L500.2500, L300.3900 ####[facility] [address] [place], [address] Glucose [Mass/Vol] 118 mg/dL High 74-106 [facility] Comment on above: Result Comment: Fast ing Glucose result from 100 to 125 mg/dLsuggests IMPAIRED HOMEOSTASIS per A.D.A. criteria. Performed By: #### L 100.0100, L500.2500, L300.3900 ####[facility] [address] [place], [address] Potassium [Moles/Vol] 3.7 mmol/L Normal 3.5-5.1 [facility] Comment on above: Performed By: #### L 100.0100, L500.2500, L300.3900 ####[facility] [address] [place], [address] Sodium [Moles/Vol] 140 mmol/L Normal 136-145 [facility] Comment on above: Performed By: #### L 100.0100, L500.2500, L300.3900 ####[facility] [address] [place], [address] Urea nitrogen [Mass/Vol] 17 mg/dL Normal 7-18 [facility] Comment on above: Performed By: #### L 100.0100, L500.2500, L300.3900 ####[facility] [address] [place], [address] BUN Normal 7-18 [facility] Comment on above: Result Comment: Canc elled via OM: Order cancelled - Patient discharged Performed By: #### L 500.2500 ####[facility] [address] [place], [address] BUN/CRE Normal 10-20 [facility] Comment on above: Result Comment: Canc elled via OM: Order cancelled - Patient discharged Performed By: #### L 500.2500 ####[facility] [address] [place], [address] CA,Total Normal 8.5-10.1 [facility] Comment on above: Result Comment: Canc elled via OM: Order cancelled - Patient discharged Performed By: #### L 500.2500 ####[facility] [address] [place], [address] CL Normal 98-107 [facility] Comment on above: Result Comment: Canc elled via OM: Order cancelled - Patient discharged Performed By: #### L 500.2500 ####[facility] [address] [place], [address] CO2 Normal 21.0-32.0 [facility] Comment on above: Result Comment: Canc elled via OM: Order cancelled - Patient discharged Performed By: #### L 500.2500 ####[facility] [address] [place], [address] CREAT,SERUM Normal 0.55-1.02 [facility] Comment on above: Result Comment: Canc elled via OM: Order cancelled - Patient discharged Performed By: #### L 500.2500 ####[facility] [address] [place], [address] EST GFR Normal >60 [facility] Comment on above: Result Comment: Canc elled via OM: Order cancelled - Patient discharged Performed By: #### L 500.2500 ####[facility] [address] [place], [address] EST GFR - AA Normal >60 [facility] Comment on above: Result Comment: Canc elled via OM: Order cancelled - Patient discharged Performed By: #### L 500.2500 ####[facility] [address] [place], [address] GAP Normal 5-15 [facility] Comment on above: Result Comment: Canc elled via OM: Order cancelled - Patient discharged Performed By: #### L 500.2500 ####[facility] [address] [place], [address] GLU Normal 74-106 [facility] Comment on above: Result Comment: Canc elled via OM: Order cancelled - Patient discharged Performed By: #### L 500.2500 ####[facility] [address] [place], [address] Potassium Normal 3.5-5.1 [facility] Comment on above: Result Comment: Canc elled via OM: Order cancelled - Patient discharged Performed By: #### L 500.2500 ####[facility] [address] [place], [address] Basic Metabolic Profile (BMP) Normal 136-145 [facility] Comment on above: Result Comment: Canc elled via OM: Order cancelled - Patient discharged Performed By: #### L 500.2500 ####[facility] [address] [place], [address] Bedside Glucoseon 03-09-2024 FINGERSTICK GLU 102 mg/dL Normal 74-106 [facility] Comment on above: Result Comment: LEVI GEMENT OF PATIENT CARE PER NURSING PROTOCOL Performed By: #### L 501.080 ####[facility] [address] [place], [address] FINGERSTICK GLU 126 mg/dL High 74-106 [facility] Comment on above: Result Comment: LEVI GEMENT OF PATIENT CARE PER NURSING PROTOCOL Performed By: #### L 501.080 ####[facility] [address] [place], [address] FINGERSTICK GLU 140 mg/dL High 74-106 [facility] Comment on above: Result Comment: LEVI GEMENT OF PATIENT CARE PER NURSING PROTOCOL Performed By: #### L 501.080 ####[facility] [address] [place], [address] FINGERSTICK GLU 107 mg/dL High 74-106 [facility] Comment on above: Result Comment: LEVI GEMENT OF PATIENT CARE PER NURSING PROTOCOL Performed By: #### L 501.080 ####[facility] [address] [place], [address] CBC W/Diff, Automatedon 11-0 Absolute Lymph 1.71 X10 3/uL Normal 0.83-4.51 [facility] Comment on above: Performed By: #### L 100.0100, L500.2500, L300.3900 ####[facility] [address] [place], [address] Absolute Neut 2.5 X10 3/uL Normal 2.0-7.7 [facility] Comment on above: Performed By: #### L 100.0100, L500.2500, L300.3900 ####[facility] [address] [place], [address] Basophils/100 WBC (Bld) 0.6 % Normal 0-1 [facility] Comment on above: Performed By: #### L 100.0100, L500.2500, L300.3900 ####[facility] [address] [place], [address] Eosinophils/100 WBC (Bld) 2.4 % Normal 0-5 [facility] Comment on above: Performed By: #### L 100.0100, L500.2500, L300.3900 ####[facility] [address] [place], [address] Erythrocyte distribution width (RBC) [Ratio] 15.9 % High 11.6-14.6 [facility] Comment on above: Performed By: #### L 100.0100, L500.2500, L300.3900 ####[facility] [address] [place], [address] Hematocrit (Bld) [Volume fraction] 35.6 % Low 37-47 [facility] Comment on above: Performed By: #### L 100.0100, L500.2500, L300.3900 ####[facility] [address] [place], [address] Hemoglobin (Bld) [Mass/Vol] 11.7 g/dL Low 12.0-15.0 [facility] Comment on above: Performed By: #### L 100.0100, L500.2500, L300.3900 ####[facility] [address] [place], [address] IG% 0.200 Normal 0.0-0.9 [facility] Comment on above: Result Comment: IG% - Immature Granulocytes (promyelocytes, myelocytes andmetamyelocytes) > 1% indicates that a LEFT SHIFT is Present. Performed By: #### L 100.0100, L500.2500, L300.3900 ####[facility] [address] [place], [address] Lymphocytes/100 WBC (Bld) 34.8 % Normal 19-41 [facility] Comment on above: Performed By: #### L 100.0100, L500.2500, L300.3900 ####[facility] [address] [place], [address] MCH (RBC) [Entitic mass] 31.7 pg Normal 27.0-32.0 [facility] Comment on above: Performed By: #### L 100.0100, L500.2500, L300.3900 ####[facility] [address] [place], [address] MCHC (RBC) [Mass/Vol] 32.9 g/dL Normal 32-36 [facility] Comment on above: Performed By: #### L 100.0100, L500.2500, L300.3900 ####[facility] [address] [place], [address] MCV (RBC) [Entitic vol] 96.5 fL Normal 81-99 [facility] Comment on above: Performed By: #### L 100.0100, L500.2500, L300.3900 ####[facility] [address] [place], [address] Monocytes/100 WBC (Bld) 11.8 % High 0-10 [facility] Comment on above: Performed By: #### L 100.0100, L500.2500, L300.3900 ####[facility] [address] [place], [address] Neutrophils/100 WBC (Bld) 50.2 % Normal 47-70 [facility] Comment on above: Performed By: #### L 100.0100, L500.2500, L300.3900 ####[facility] [address] [place], [address] Nucleated RBC (Bld) [#/Vol] 0 10*3/uL Normal 0-5 [facility] Comment on above: Performed By: #### L 100.0100, L500.2500, L300.3900 ####[facility] [address] [place], [address] Platelet mean volume (Bld) [Entitic vol] 9.7 fL Normal 6.2-12.0 [facility] Comment on above: Performed By: #### L 100.0100, L500.2500, L300.3900 ####[facility] [address] [place], [address] Platelets (Bld) [#/Vol] 230 10*3/uL Normal 150-450 [facility] Comment on above: Performed By: #### L 100.0100, L500.2500, L300.3900 ####[facility] [address] [place], [address] RBC (Bld) [#/Vol] 3.69 10*6/uL Low 4.2-5.4 [facility] Comment on above: Performed By: #### L 100.0100, L500.2500, L300.3900 ####[facility] [address] [place], [address] RDW SD 56.4 fl High 35.1-43.9 [facility] Comment on above: Performed By: #### L 100.0100, L500.2500, L300.3900 ####[facility] [address] [place], [address] WBC (Bld) [#/Vol] 4.9 10*3/uL Normal 4.4-11.0 [facility] Comment on above: Performed By: #### L 100.0100, L500.2500, L300.3900 ####[facility] [address] [place], [address] Absolute Neut Normal 2.0-7.7 [facility] Comment on above: Result Comment: Canc elled via OM: Order cancelled - Patient discharged Performed By: #### L 100.0100 ####[facility] [address] [place], [address] HCT Normal 37-47 [facility] Comment on above: Result Comment: Canc elled via OM: Order cancelled - Patient discharged Performed By: #### L 100.0100 ####[facility] [address] [place], [address] HGB Normal 12.0-15.0 [facility] Comment on above: Result Comment: Canc elled via OM: Order cancelled - Patient discharged Performed By: #### L 100.0100 ####[facility] [address] [place], [address] MCH Normal 27.0-32.0 [facility] Comment on above: Result Comment: Canc elled via OM: Order cancelled - Patient discharged Performed By: #### L 100.0100 ####[facility] [address] [place], [address] MCHC Normal 32-36 [facility] Comment on above: Result Comment: Canc elled via OM: Order cancelled - Patient discharged Performed By: #### L 100.0100 ####[facility] [address] [place], [address] MCV Normal 81-99 [facility] Comment on above: Result Comment: Canc elled via OM: Order cancelled - Patient discharged Performed By: #### L 100.0100 ####[facility] [address] [place], [address] NEUT% Normal 47-70 [facility] Comment on above: Result Comment: Canc elled via OM: Order cancelled - Patient discharged Performed By: #### L 100.0100 ####[facility] [address] [place], [address] PLT Normal 150-450 [facility] Comment on above: Result Comment: Canc elled via OM: Order cancelled - Patient discharged Performed By: #### L 100.0100 ####[facility] [address] [place], [address] RBC Normal 4.2-5.4 [facility] [facility] Comment on above: Result Comment: Canc elled via OM: Order cancelled - Patient discharged Performed By: #### L 100.0100 ####[facility] [address] [place], [address] RDW CV Normal 11.6-14.6 [facility] Comment on above: Result Comment: Canc elled via OM: Order cancelled - Patient discharged Performed By: #### L 100.0100 ####[facility] [address] [place], [address] RDW SD Normal 35.1-43.9 [facility] Comment on above: Result Comment: Canc elled via OM: Order cancelled - Patient discharged Performed By: #### L 100.0100 ####[facility] [address] [place], [address] WBC Normal 4.4-11.0 [facility] Comment on above: Result Comment: Canc elled via OM: Order cancelled - Patient discharged Performed By: #### L 100.0100 ####[facility] [address] [place], [address] Consultation - Infectious Dx on 03-09-2024 Consultation - Infectious Dx Normal [facility] Partial Thromboplast Timeon 03-09-2024 aPTT Coag (Bld) [Time] 116.2 s Invalid Interpretation Code 24.1-36.2 [facility] Comment on above: Order Comment: Comme nts: time sensitive hep gtt Result Comment: CRIT ICAL VALUE CALLED TO HERMELINDA BHATTI03/09/242099 Annel Holder.RESULTS READ BACK BY SAME. Performed By: #### L 300.4310 ####[facility] [address] [place], [address] aPTT Coag (Bld) [Time] 36.0 s Normal 24.1-36.[address] [facility] Comment on above: Performed By: #### L 300.4310 ####[facility] [address] [place], [address] Prothrombin Time w/INRon INR Coag (PPP) [Relative time] 2.2 {INR} Normal [facility] Comment on above: Performed By: #### L 100.0100, L500.2500, L300.3900 ####[facility] [address] [place], [address] PT Coag (PPP) [Time] 24.6 s High 11.7-14.9 [facility] Comment on above: Performed By: #### L 100.0100, L500.2500, L300.3900 ####[facility] [address] [place], [address] 12 Lead EKGon 03-08-2024 12 Lead EKG Normal [facility] Basic Metabolic Profile (BMP )on 03-08-2024 BUN Normal 7-18 [facility] Comment on above: Result Comment: CMP ALREADY ORDERED FOR MORNING RUN Performed By: #### L 500.2500 ####[facility] [address] [place], [address] BUN/CRE Normal 10-20 [facility] Comment on above: Result Comment: CMP ALREADY ORDERED FOR MORNING RUN Performed By: #### L 500.2500 ####[facility] [address] [place], [address] CA,Total Normal 8.5-10.1 [facility] Comment on above: Result Comment: CMP ALREADY ORDERED FOR MORNING RUN Performed By: #### L 500.2500 ####[facility] [address] [place], [address] CL Normal 98-107 [facility] Comment on above: Result Comment: CMP ALREADY ORDERED FOR MORNING RUN Performed By: #### L 500.2500 ####[facility] [address] [place], [address] CO2 Normal 21.0-32.0 [facility] Comment on above: Result Comment: CMP ALREADY ORDERED FOR MORNING RUN Performed By: #### L 500.2500 ####[facility] [address] [place], [address] CREAT,SERUM Normal 0.55-1.02 [facility] Comment on above: Result Comment: CMP ALREADY ORDERED FOR MORNING RUN Performed By: #### L 500.2500 ####[facility] [address] [place], [address] EST GFR Normal >60 [facility] Comment on above: Result Comment: CMP ALREADY ORDERED FOR MORNING RUN Performed By: #### L 500.2500 ####[facility] [address] [place], [address] EST GFR - AA Normal >60 [facility] Comment on above: Result Comment: CMP ALREADY ORDERED FOR MORNING RUN Performed By: #### L 500.2500 ####[facility] [address] [place], [address] GAP Normal 5-15 [facility] Comment on above: Result Comment: CMP ALREADY ORDERED FOR MORNING RUN Performed By: #### L 500.2500 ####[facility] [address] [place], [address] GLU Normal 74-106 [facility] Comment on above: Result Comment: CMP ALREADY ORDERED FOR MORNING RUN Performed By: #### L 500.2500 ####[facility] [address] [place], [address] Potassium Normal 3.5-5.1 [facility] Comment on above: Result Comment: CMP ALREADY ORDERED FOR MORNING RUN Performed By: #### L 500.2500 ####[facility] [address] [place], [address] Basic Metabolic Profile (BMP) Normal 136-145 [facility] Comment on above: Result Comment: CMP ALREADY ORDERED FOR MORNING RUN Performed By: #### L 500.2500 ####[facility] [address] [place], [address] Bedside Glucoseon 03-08-2024 FINGERSTICK GLU 143 mg/dL High 74-106 [facility] Comment on above: Result Comment: LEVI GEMENT OF PATIENT CARE PER NURSING PROTOCOL Performed By: #### L 501.080 ####[facility] [address] [place], [address] FINGERSTICK GLU 135 mg/dL High 74-106 [facility] Comment on above: Result Comment: LEVI GEMENT OF PATIENT CARE PER NURSING PROTOCOL Performed By: #### L 501.080 ####[facility] [address] [place], [address] FINGERSTICK GLU 107 mg/dL High 74-106 [facility] Comment on above: Result Comment: LEVI GEMENT OF PATIENT CARE PER NURSING PROTOCOL Performed By: #### L 501.080 ####[facility] [address] [place], [address] CBC W/Diff, Automatedon 110 Absolute Lymph 1.74 X10 3/uL Normal 0.83-4.51 [facility] Comment on above: Performed By: #### L 100.0100, L501.9985, L501.9520, L501.2300, L500.4050, L501.5200 ####[facility] [address] [place], [address] Absolute Neut 2.3 X10 3/uL Normal 2.0-7.7 [facility] Comment on above: Performed By: #### L 100.0100, L501.9985, L501.9520, L501.2300, L500.4050, L501.5200 ####[facility] [address] [place], [address] Basophils/100 WBC (Bld) 0.7 % Normal 0-1 [facility] Comment on above: Performed By: #### L 100.0100, L501.9985, L501.9520, L501.2300, L500.4050, L501.5200 ####[facility] [address] [place], [address] Eosinophils/100 WBC (Bld) 2.4 % Normal 0-5 [facility] Comment on above: Performed By: #### L 100.0100, L501.9985, L501.9520, L501.2300, L500.4050, L501.5200 ####[facility] [address] [place], [address] Erythrocyte distribution width (RBC) [Ratio] 15.6 % High 11.6-14.6 [facility] Comment on above: Performed By: #### L 100.0100, L501.9985, L501.9520, L501.2300, L500.4050, L501.5200 ####[facility] [address] [place], [address] Hematocrit (Bld) [Volume fraction] 34.1 % Low 37-47 [facility] Comment on above: Performed By: #### L 100.0100, L501.9985, L501.9520, L501.2300, L500.4050, L501.5200 ####[facility] [address] [place], [address] Hemoglobin (Bld) [Mass/Vol] 10.7 g/dL Low 12.0-15.0 [facility] Comment on above: Performed By: #### L 100.0100, L501.9985, L501.9520, L501.2300, L500.4050, L501.5200 ####[facility] [address] [place], [address] IG% 0.400 Normal 0.0-0.9 [facility] Comment on above: Result Comment: IG% - Immature Granulocytes (promyelocytes, myelocytes andmetamyelocytes) > 1% indicates that a LEFT SHIFT is Present. Performed By: #### L 100.0100, L501.9985, L501.9520, L501.2300, L500.4050, L501.5200 ####[facility] [address] [place], [address] Lymphocytes/100 WBC (Bld) 37.9 % Normal 19-41 [facility] Comment on above: Performed By: #### L 100.0100, L501.9985, L501.9520, L501.2300, L500.4050, L501.5200 ####[facility] [address] [place], [address] MCH (RBC) [Entitic mass] 31.0 pg Normal 27.0-32.0 [facility] Comment on above: Performed By: #### L 100.0100, L501.9985, L501.9520, L501.2300, L500.4050, L501.5200 ####[facility] [address] [place], [address] MCHC (RBC) [Mass/Vol] 31.4 g/dL Low 32-36 [facility] Comment on above: Performed By: #### L 100.0100, L501.9985, L501.9520, L501.2300, L500.4050, L501.5200 ####[facility] [address] [place], [address] MCV (RBC) [Entitic vol] 98.8 fL Normal 81-99 [facility] Comment on above: Performed By: #### L 100.0100, L501.9985, L501.9520, L501.2300, L500.4050, L501.5200 ####[facility] [address] [place], [address] Monocytes/100 WBC (Bld) 9.4 % Normal 0-10 [facility] Comment on above: Performed By: #### L 100.0100, L501.9985, L501.9520, L501.2300, L500.4050, L501.5200 ####[facility] [address] [place], [address] Neutrophils/100 WBC (Bld) 49.2 % Normal 47-70 [facility] Comment on above: Performed By: #### L 100.0100, L501.9985, L501.9520, L501.2300, L500.4050, L501.5200 ####[facility] [address] [place], [address] Nucleated RBC (Bld) [#/Vol] 0 10*3/uL Normal 0-5 [facility] Comment on above: Performed By: #### L 100.0100, L501.9985, L501.9520, L501.2300, L500.4050, L501.5200 ####[facility] [address] [place], [address] Platelet mean volume (Bld) [Entitic vol] 10.1 fL Normal 6.2-12.0 [facility] Comment on above: Performed By: #### L 100.0100, L501.9985, L501.9520, L501.2300, L500.4050, L501.5200 ####[facility] [address] [place], [address] Platelets (Bld) [#/Vol] 228 10*3/uL Normal 150-450 [facility] Comment on above: Performed By: #### L 100.0100, L501.9985, L501.9520, L501.2300, L500.4050, L501.5200 ####[facility] [address] [place], [address] RBC (Bld) [#/Vol] 3.45 10*6/uL Low 4.2-5.4 [facility] Comment on above: Performed By: #### L 100.0100, L501.9985, L501.9520, L501.2300, L500.4050, L501.5200 ####[facility] [address] [place], [address] RDW SD 56.7 fl High 35.1-43.9 [facility] Comment on above: Performed By: #### L 100.0100, L501.9985, L501.9520, L501.2300, L500.4050, L501.5200 ####[facility] [address] [place], [address] WBC (Bld) [#/Vol] 4.6 10*3/uL Normal 4.4-11.0 [facility] Comment on above: Performed By: #### L 100.0100, L501.9985, L501.9520, L501.2300, L500.4050, L501.5200 ####[facility] [address] [place], [address] CPK Total, Creatine Kinaseon 03-08-2024 CPK TOTAL 47 U/L Normal 26-192 [facility] Comment on above: Performed By: #### L 501.3620 ####[facility] [address] [place], [address] Comprehensive Metabolic Prof [facility] 03-08-2024 Albumin [Mass/Vol] 2.9 g/dL Low 3.2-5.0 [facility] Comment on above: Performed By: #### L 100.0100, L501.9985, L501.9520, L501.2300, L500.4050, L501.5200 ####[facility] [address] [place], [address] Albumin/Globulin [Mass ratio] 0.9 {ratio} Normal 0.9-2.4 [facility] Comment on above: Performed By: #### L 100.0100, L501.9985, L501.9520, L501.2300, L500.4050, L501.5200 ####[facility] [address] [place], [address] ALK P 52 U/L Normal 45-117 [facility] Comment on above: Performed By: #### L 100.0100, L501.9985, L501.9520, L501.2300, L500.4050, L501.5200 ####[facility] [address] [place], [address] ALT [Catalytic activity/Vol] 37 U/L Normal 13-56 [facility] Comment on above: Performed By: #### L 100.0100, L501.9985, L501.9520, L501.2300, L500.4050, L501.5200 ####[facility] [address] [place], [address] AST [Catalytic activity/Vol] 33 U/L Normal 15-37 [facility] Comment on above: Performed By: #### L 100.0100, L501.9985, L501.9520, L501.2300, L500.4050, L501.5200 ####[facility] [address] [place], [address] Bilirubin [Mass/Vol] 0.30 mg/dL Normal 0.20-1.00 [facility] Comment on above: Result Comment: For patients on eltrombopag therapy, use of Dimension [place] TBIL is not recommended. Performed By: #### L 100.0100, L501.9985, L501.9520, L501.2300, L500.4050, L501.5200 ####[facility] [address] [place], [address] BUN/CRE 32.4 RATIO High 10-20 [facility] Comment on above: Performed By: #### L 100.0100, L501.9985, L501.9520, L501.2300, L500.4050, L501.5200 ####[facility] [address] [place], [address] CA,Total 8.5 mg/dL Normal 8.5-10.1 [facility] Comment on above: Performed By: #### L 100.0100, L501.9985, L501.9520, L501.2300, L500.4050, L501.5200 ####[facility] [address] [place], [address] Chloride [Moles/Vol] 111 mmol/L High 98-107 [facility] Comment on above: Performed By: #### L 100.0100, L501.9985, L501.9520, L501.2300, L500.4050, L501.5200 ####[facility] [address] [place], [address] CO2 [Moles/Vol] 23.0 mmol/L Normal 21.0-32.0 [facility] Comment on above: Performed By: #### L 100.0100, L501.9985, L501.9520, L501.2300, L500.4050, L501.5200 ####[facility] [address] [place], [address] Creatinine [Mass/Vol] 1.02 mg/dL Normal 0.55-1.02 [facility] Comment on above: Result Comment: The validity of the calculated GFR GFRAA in patients over70 years has not been determined. Clinical correlation isessential. Performed By: #### L 100.0100, L501.9985, L501.9520, L501.2300, L500.4050, L501.5200 ####[facility] [address] [place], [address] ECRCL 37.69 ml/min Normal [facility] Comment on above: Performed By: #### L 100.0100, L501.9985, L501.9520, L501.2300, L500.4050, L501.5200 ####[facility] [address] [place], [address] EST GFR - AA 66 mL/min Normal >60 [facility] Comment on above: Result Comment: Afri can Portuguese GFR Calc Performed By: #### L 100.0100, L501.9985, L501.9520, L501.2300, L500.4050, L501.5200 ####[facility] [address] [place], [address] GAP 5 Normal 5-15 [facility] Comment on above: Performed By: #### L 100.0100, L501.9985, L501.9520, L501.2300, L500.4050, L501.5200 ####[facility] [address] [place], [address] GFR/1.73 sq M.predicted among non-blacks MDRD (S/P/Bld) [Vol rate/Area] 55 mL/min/{1.73_m2} Low >60 [facility] Comment on above: Result Comment: Non- GFR Calc Performed By: #### L 100.0100, L501.9985, L501.9520, L501.2300, L500.4050, L501.5200 ####[facility] [address] [place], [address] Globulin (S) [Mass/Vol] 3.2 g/dL Normal 2.2-4.2 [facility] Comment on above: Performed By: #### L 100.0100, L501.9985, L501.9520, L501.2300, L500.4050, L501.5200 ####[facility] [address] [place], [address] Glucose [Mass/Vol] 91 mg/dL Normal 74-106 [facility] Comment on above: Performed By: #### L 100.0100, L501.9985, L501.9520, L501.2300, L500.4050, L501.5200 ####[facility] [address] [place], [address] Potassium [Moles/Vol] 3.6 mmol/L Normal 3.5-5.1 [facility] Comment on above: Performed By: #### L 100.0100, L501.9985, L501.9520, L501.2300, L500.4050, L501.5200 ####[facility] [address] [place], [address] Sodium [Moles/Vol] 139 mmol/L Normal 136-145 [facility] Comment on above: Performed By: #### L 100.0100, L501.9985, L501.9520, L501.2300, L500.4050, L501.5200 ####[facility] [address] [place], [address] T PROT 6.1 g/dL Low 6.4-8.2 [facility] Comment on above: Performed By: #### L 100.0100, L501.9985, L501.9520, L501.2300, L500.4050, L501.5200 ####[facility] [address] [place], [address] Urea nitrogen [Mass/Vol] 33 mg/dL High 7-18 [facility] Comment on above: Performed By: #### L 100.0100, L501.9985, L501.9520, L501.2300, L500.4050, L501.5200 ####[facility] [address] [place], [address] Consultation - Surgicalon Consultation - Surgical Normal [facility] Hemoglobin A1con 03-08-2024 HbA1c (Bld) [Mass fraction] 5.7 % High 3.8-5.6 [facility] Comment on above: Result Comment: Norm al < 5.7 % Prediabetic 5.7 - 6.4 % Diabetic >or= 6.5 % Please note range changes. Performed By: #### L 100.0100, L501.9985, L501.9520, L501.2300, L500.4050, L501.5200 ####[facility] [address] [place], [place], [address] Lower Ext/No Jt/w/oon 2023 Lower Ext/No Jt/w/o Normal [facility] Magnesiumon 03-08-2024 Magnesium [Mass/Vol] 2.3 mg/dL Normal 1.6-2.6 [facility] Comment on above: Performed By: #### L 100.0100, L501.9985, L501.9520, L501.2300, L500.4050, L501.5200 ####[facility] [address] [place], [place], [address] Partial Thromboplast Timeon 03-08-2024 aPTT Coag (Bld) [Time] 64.8 s High 24.1-36.[address] [facility] Comment on above: Order Comment: CRITI SUSAN VALUE CALLED TO JOSE [place]03/08/2411 Betty Bacon.RESULTS READ BACK BY SAME. Performed By: #### L 300.4310, L300.3900 ####[facility] [address] [place], [address] Phosphoruson 03-08-2024 Phosphate [Mass/Vol] 4.1 mg/dL Normal 2.5-4.9 [facility] Comment on above: Performed By: #### L 100.0100, L501.9985, L501.9520, L501.2300, L500.4050, L501.5200 ####[facility] [address] [place], [address] Prothrombin Time w/INRon INR Coag (PPP) [Relative time] 4.7 {INR} Invalid Interpretation Code [facility] Comment on above: Order Comment: CRITI SUSAN VALUE CALLED TO JOSE WE[place]03/08/24 0711 Betty Bacon.RESULTS READ BACK BY SAME. Performed By: #### L 300.4310, L300.3900 ####[facility] [address] [place], [address] PT Coag (PPP) [Time] 43.5 s High 11.7-14.9 [facility] Comment on above: Order Comment: CRITI SUSAN VALUE CALLED TO JOSE [place]03/08/24 11 Betty Bacon.RESULTS READ BACK BY SAME. Performed By: #### L 300.4310, L300.3900 ####[facility] [address] [place], [address] INR Coag (PPP) [Relative time] 4.6 {INR} Invalid Interpretation Code [facility] Comment on above: Result Comment: CRIT ICAL VALUE CALLED TO DZVNZAWB38/07/24 0102 Krys Minaya.RESULTS READ BACK BY SAME. Performed By: #### L 300.3900 ####[facility] [address] [place], [address] PT Coag (PPP) [Time] 42.9 s High 11.7-14.9 [facility] Comment on above: Performed By: #### L 300.3900 ####[facility] [address] [place], [address] Thyroid Stim Hormone (TSH)on 03-08-2024 TSH 5.590 uIU/mL High 0.358-3.740 [facility] Comment on above: Performed By: #### L 100.0100, L501.9985, L501.9520, L501.2300, L500.4050, L501.5200 ####[facility] [address] [place], [address] Type AND Screenon 03-08-2024 ABO and Rh group Nom (Bld) Blood group A Rh(D) positive Normal [facility] Comment on above: Order Comment: S Performed By: #### B TS ####[facility] [address] [place], [address] US Art Duplex Unilat Lower E xton 03-08-2024 US Art Duplex Unilat Lower Ext Normal [facility] Basic Metabolic Profile (BMP )on 03-07-2024 BUN/CRE 35.3 RATIO High 10-20 [facility] Comment on above: Performed By: #### L 500.2500, L101.9900, L100.0100, L501.6710 ####[facility] [address] [place], [address] CA,Total 9.3 mg/dL Normal 8.5-10.1 [facility] Comment on above: Performed By: #### L 500.2500, L101.9900, L100.0100, L501.6710 ####[facility] [address] [place], [address] Chloride [Moles/Vol] 106 mmol/L Normal 98-107 [facility] Comment on above: Performed By: #### L 500.2500, L101.9900, L100.0100, L501.6710 ####[facility] [address] [place], [address] CO2 [Moles/Vol] 25.0 mmol/L Normal 21.0-32.0 [facility] Comment on above: Performed By: #### L 500.2500, L101.9900, L100.0100, L501.6710 ####[facility] [address] [place], [address] Creatinine [Mass/Vol] 1.16 mg/dL High 0.55-1.02 [facility] Comment on above: Result Comment: The validity of the calculated GFR GFRAA in patients over70 years has not been determined. Clinical correlation isessential. Performed By: #### L 500.2500, L101.9900, L100.0100, L501.6710 ####[facility] [address] [place], [address] ECRCL 32.94 ml/min Normal [facility] Comment on above: Performed By: #### L 500.2500, L101.9900, L100.0100, L501.6710 ####[facility] [address] [place], [address] EST GFR - AA 57 mL/min Low >60 [facility] Comment on above: Result Comment: Afri can Portuguese GFR Calc Performed By: #### L 500.2500, L101.9900, L100.0100, L501.6710 ####[facility] [address] [place], [address] GAP 7 Normal 5-15 [facility] Comment on above: Performed By: #### L 500.2500, L101.9900, L100.0100, L501.6710 ####[facility] [address] [place], [address] GFR/1.73 sq M.predicted among non-blacks MDRD (S/P/Bld) [Vol rate/Area] 47 mL/min/{1.73_m2} Low >60 [facility] Comment on above: Result Comment: Non- GFR Calc Performed By: #### L 500.2500, L101.9900, L100.0100, L501.6710 ####[facility] [address] [place], [address] Glucose [Mass/Vol] 150 mg/dL High 74-106 [facility] Comment on above: Result Comment: Fast ing Glucose result greater than or equal to 126 mg/dLsuggests DIABETES MELLITUS per A.D.A. criteria. Performed By: #### L 500.2500, L101.9900, L100.0100, L501.6710 ####[facility] [address] [place], [address] Potassium [Moles/Vol] 3.8 mmol/L Normal 3.5-5.1 [facility] Comment on above: Performed By: #### L 500.2500, L101.9900, L100.0100, L501.6710 ####[facility] [address] [place], [address] Sodium [Moles/Vol] 138 mmol/L Normal 136-145 [facility] Comment on above: Performed By: #### L 500.2500, L101.9900, L100.0100, L501.6710 ####[facility] [address] [place], [address] Urea nitrogen [Mass/Vol] 41 mg/dL High 7-18 [facility] Comment on above: Performed By: #### L 500.2500, L101.9900, L100.0100, L501.6710 ####[facility] [address] [place], [address] CBC W/Diff, Automatedon 11-0 6-2024 Absolute Lymph 1.80 X10 3/uL Normal 0.83-4.51 [facility] Comment on above: Performed By: #### L 500.2500, L101.9900, L100.0100, L501.6710 ####[facility] [address] [place], [address] Absolute Neut 2.6 X10 3/uL Normal 2.0-7.7 [facility] Comment on above: Performed By: #### L 500.2500, L101.9900, L100.0100, L501.6710 ####[facility] [address] [place], [address] Basophils/100 WBC (Bld) 0.4 % Normal 0-1 [facility] Comment on above: Performed By: #### L 500.2500, L101.9900, L100.0100, L501.6710 ####[facility] [address] [place], [address] Eosinophils/100 WBC (Bld) 1.6 % Normal 0-5 [facility] Comment on above: Performed By: #### L 500.2500, L101.9900, L100.0100, L501.6710 ####[facility] [address] [place], [address] Erythrocyte distribution width (RBC) [Ratio] 15.9 % High 11.6-14.6 [facility] Comment on above: Performed By: #### L 500.2500, L101.9900, L100.0100, L501.6710 ####[facility] [address] [place], [address] Hematocrit (Bld) [Volume fraction] 37.6 % Normal 37-47 [facility] Comment on above: Performed By: #### L 500.2500, L101.9900, L100.0100, L501.6710 ####[facility] [address] [place], [address] Hemoglobin (Bld) [Mass/Vol] 12.3 g/dL Normal 12.0-15.0 [facility] Comment on above: Performed By: #### L 500.2500, L101.9900, L100.0100, L501.6710 ####[facility] [address] [place], [address] IG% 0.200 Normal 0.0-0.9 [facility] Comment on above: Result Comment: IG% - Immature Granulocytes (promyelocytes, myelocytes andmetamyelocytes) > 1% indicates that a LEFT SHIFT is Present. Performed By: #### L 500.2500, L101.9900, L100.0100, L501.6710 ####[facility] [address] [place], [address] Lymphocytes/100 WBC (Bld) 36.0 % Normal 19-41 [facility] Comment on above: Performed By: #### L 500.2500, L101.9900, L100.0100, L501.6710 ####[facility] [address] [place], [address] MCH (RBC) [Entitic mass] 31.8 pg Normal 27.0-32.0 [facility] Comment on above: Performed By: #### L 500.2500, L101.9900, L100.0100, L501.6710 ####[facility] [address] [place], [address] MCHC (RBC) [Mass/Vol] 32.7 g/dL Normal 32-36 [facility] Comment on above: Performed By: #### L 500.2500, L101.9900, L100.0100, L501.6710 ####[facility] [address] [place], [address] MCV (RBC) [Entitic vol] 97.2 fL Normal 81-99 [facility] Comment on above: Performed By: #### L 500.2500, L101.9900, L100.0100, L501.6710 ####[facility] [address] [place], [address] Monocytes/100 WBC (Bld) 9.0 % Normal 0-10 [facility] Comment on above: Performed By: #### L 500.2500, L101.9900, L100.0100, L501.6710 ####[facility] [address] [place], [address] Neutrophils/100 WBC (Bld) 52.8 % Normal 47-70 [facility] Comment on above: Performed By: #### L 500.2500, L101.9900, L100.0100, L501.6710 ####[facility] [address] [place], [address] Nucleated RBC (Bld) [#/Vol] 0 10*3/uL Normal 0-5 [facility] Comment on above: Performed By: #### L 500.2500, L101.9900, L100.0100, L501.6710 ####[facility] [address] [place], [address] Platelet mean volume (Bld) [Entitic vol] 9.8 fL Normal 6.2-12.0 [facility] Comment on above: Performed By: #### L 500.2500, L101.9900, L100.0100, L501.6710 ####[facility] [address] [place], [address] Platelets (Bld) [#/Vol] 249 10*3/uL Normal 150-450 [facility] Comment on above: Performed By: #### L 500.2500, L101.9900, L100.0100, L501.6710 ####[facility] [address] [place], [address] RBC (Bld) [#/Vol] 3.87 10*6/uL Low 4.2-5.4 [facility] Comment on above: Performed By: #### L 500.2500, L101.9900, L100.0100, L501.6710 ####[facility] [address] [place], [address] RDW SD 56.6 fl High 35.1-43.9 [facility] Comment on above: Performed By: #### L 500.2500, L101.9900, L100.0100, L501.6710 ####[facility] [address] [place], [address] WBC (Bld) [#/Vol] 5.0 10*3/uL Normal 4.4-11.0 [facility] Comment on above: Performed By: #### L 500.2500, L101.9900, L100.0100, L501.6710 ####[facility] [address] [place], [address] CNPNon 03-07-2024 CNPN Normal [facility] CRPon 03-07-2024 C-REACTIVE PROT 11.30 mg/L High 0.0-3.0 [facility] Comment on above: Result Comment: C-Re active Protein (CRP) provides useful information for thediagnosis, therapy and monitoring of inflammatory processesand associated diseases. For the evaluation of Relative Riskfor Cardiovascular Disease, a High Sensitivity CRP (HSCRP)should be ordered. Performed By: #### L 500.2500, L101.9900, L100.0100, L501.6710 ####[facility] [address] [place], [address] Emergency Department Summary on 03-07-2024 Emergency Department Summary Normal [facility] Erythrocyte Sed Rateon 03-07 SED RATE 17 mm/hr Normal 0-30 [facility] Comment on above: Performed By: #### L 500.2500, L101.9900, L100.0100, L501.6710 ####[facility] [address] [place], [address] Foot min 3 Viewson 4 Foot min 3 Views Normal [facility] H AND P Exam - Hospitaliston 03-07-2024 H&P Exam - Hospitalist Normal [facility] Basic Metabolic Profile (BMP )on 03-02-2024 BUN Normal 7-18 [facility] Comment on above: Result Comment: Canc elled via OM: Order cancelled - Patient discharged Performed By: #### L 500.2500 ####[facility] [address] [place], [address] BUN/CRE Normal 10-20 [facility] Comment on above: Result Comment: Canc elled via OM: Order cancelled - Patient discharged Performed By: #### L 500.2500 ####[facility] [address] [place], [address] CA,Total Normal 8.5-10.1 [facility] Comment on above: Result Comment: Canc elled via OM: Order cancelled - Patient discharged Performed By: #### L 500.2500 ####[facility] [address] [place], [address] CL Normal 98-107 [facility] Comment on above: Result Comment: Canc elled via OM: Order cancelled - Patient discharged Performed By: #### L 500.2500 ####[facility] [address] [place], [address] CO2 Normal 21.0-32.0 [facility] Comment on above: Result Comment: Canc elled via OM: Order cancelled - Patient discharged Performed By: #### L 500.2500 ####[facility] [address] [place], [address] CREAT,SERUM Normal 0.55-1.02 [facility] Comment on above: Result Comment: Canc elled via OM: Order cancelled - Patient discharged Performed By: #### L 500.2500 ####[facility] [address] [place], [address] EST GFR Normal >60 [facility] Comment on above: Result Comment: Canc elled via OM: Order cancelled - Patient discharged Performed By: #### L 500.2500 ####[facility] [address] [place], [address] EST GFR - AA Normal >60 [facility] Comment on above: Result Comment: Canc elled via OM: Order cancelled - Patient discharged Performed By: #### L 500.2500 ####[facility] [address] [place], [address] GAP Normal 5-15 [facility] Comment on above: Result Comment: Canc elled via OM: Order cancelled - Patient discharged Performed By: #### L 500.2500 ####[facility] [address] [place], [address] GLU Normal 74-106 [facility] Comment on above: Result Comment: Canc elled via OM: Order cancelled - Patient discharged Performed By: #### L 500.2500 ####[facility] [address] [place], [address] Potassium Normal 3.5-5.1 [facility] Comment on above: Result Comment: Canc elled via OM: Order cancelled - Patient discharged Performed By: #### L 500.2500 ####[facility] [address] [place], [address] Basic Metabolic Profile (BMP) Normal 136-145 [facility] Comment on above: Result Comment: Canc elled via OM: Order cancelled - Patient discharged Performed By: #### L 500.2500 ####[facility] [address] [place], [address] CBC W/Diff, Automatedon 11-0 Absolute Neut Normal 2.0-7.7 [facility] Comment on above: Result Comment: Canc elled via OM: Order cancelled - Patient discharged Performed By: #### L 100.0100 ####[facility] [address] [place], [address] HCT Normal 37-47 [facility] Comment on above: Result Comment: Canc elled via OM: Order cancelled - Patient discharged Performed By: #### L 100.0100 ####[facility] [address] [place], [address] HGB Normal 12.0-15.0 [facility] Comment on above: Result Comment: Canc elled via OM: Order cancelled - Patient discharged Performed By: #### L 100.0100 ####[facility] [address] [place], [address] MCH Normal 27.0-32.0 [facility] Comment on above: Result Comment: Canc elled via OM: Order cancelled - Patient discharged Performed By: #### L 100.0100 ####[facility] [address] [place], [address] MCHC Normal 32-36 [facility] Comment on above: Result Comment: Canc elled via OM: Order cancelled - Patient discharged Performed By: #### L 100.0100 ####[facility] [address] [place], [address] MCV Normal 81-99 [facility] Comment on above: Result Comment: Canc elled via OM: Order cancelled - Patient discharged Performed By: #### L 100.0100 ####[facility] [address] [place], [address] NEUT% Normal 47-70 [facility] Comment on above: Result Comment: Canc elled via OM: Order cancelled - Patient discharged Performed By: #### L 100.0100 ####[facility] [address] [place], [address] PLT Normal 150-450 [facility] Comment on above: Result Comment: Canc elled via OM: Order cancelled - Patient discharged Performed By: #### L 100.0100 ####[facility] [address] [place], [address] RBC Normal 4.2-5.4 [facility] Comment on above: Result Comment: Canc elled via OM: Order cancelled - Patient discharged Performed By: #### L 100.0100 ####[facility] [address] [place], [address] RDW CV Normal 11.6-14.6 [facility] Comment on above: Result Comment: Canc elled via OM: Order cancelled - Patient discharged Performed By: #### L 100.0100 ####[facility] [address] [place], [address] RDW SD Normal 35.1-43.9 [facility] Comment on above: Result Comment: Canc elled via OM: Order cancelled - Patient discharged Performed By: #### L 100.0100 ####[facility] [address] [place], [address] WBC Normal 4.4-11.0 [facility] Comment on above: Result Comment: Canc elled via OM: Order cancelled - Patient discharged Performed By: #### L 100.0100 ####[facility] [address] [place], [address] CTA Abd w/Runoff W/WO Contra ston 03-01-2024 CTA Abd w/Runoff W/WO Contrast Normal [facility] CNPNon 02-29-2024 CNPN Normal [facility] Basic Metabolic Profile (BMP )on 02-24-2024 BUN Normal 7-18 [facility] Comment on above: Result Comment: Canc elled via OM: Order cancelled - Patient discharged Performed By: #### L 500.2500 ####[facility] [address] [place], [address] BUN/CRE Normal 10-20 [facility] Comment on above: Result Comment: Canc elled via OM: Order cancelled - Patient discharged Performed By: #### L 500.2500 ####[facility] [address] [facility] [address] CA,Total Normal 8.5-10.1 [facility] Comment on above: Result Comment: Canc elled via OM: Order cancelled - Patient discharged Performed By: #### L 500.2500 ####[facility] [address] [place] [address] CL Normal 98-107 [facility] Comment on above: Result Comment: Canc elled via OM: Order cancelled - Patient discharged Performed By: #### L 500.2500 ####[facility] [address] [facility] [address] CO2 Normal 21.0-32.0 [facility] Comment on above: Result Comment: Canc elled via OM: Order cancelled - Patient discharged Performed By: #### L 500.2500 ####[facility] [address] [facility] [address] CREAT,SERUM Normal 0.55-1.02 [facility] Comment on above: Result Comment: Canc elled via OM: Order cancelled - Patient discharged Performed By: #### L 500.2500 ####[facility] [address] [place], [address] EST GFR Normal >60 [facility] Comment on above: Result Comment: Canc elled via OM: Order cancelled - Patient discharged Performed By: #### L 500.2500 ####[facility] [address] [facility] [address] EST GFR - AA Normal >60 [facility] Comment on above: Result Comment: Canc elled via OM: Order cancelled - Patient discharged Performed By: #### L 500.2500 ####[facility] [address] [place], [address] GAP Normal 5-15 [facility] Comment on above: Result Comment: Canc elled via OM: Order cancelled - Patient discharged Performed By: #### L 500.2500 ####[facility] [address] [place], [address] GLU Normal 74-106 [facility] Comment on above: Result Comment: Canc elled via OM: Order cancelled - Patient discharged Performed By: #### L 500.2500 ####[facility] [address] [place], [address] Potassium Normal 3.5-5.1 [facility] Comment on above: Result Comment: Canc elled via OM: Order cancelled - Patient discharged Performed By: #### L 500.2500 ####[facility] [address] [place], [address] Basic Metabolic Profile (BMP) Normal 136-145 [facility] Comment on above: Result Comment: Canc elled via OM: Order cancelled - Patient discharged Performed By: #### L 500.2500 ####[facility] [address] [place], [address] CBC W/Diff, Automatedon 10-2 Absolute Neut Normal 2.0-7.7 [facility] Comment on above: Result Comment: Canc elled via OM: Order cancelled - Patient discharged Performed By: #### L 100.0100 ####[facility] [address] [place], [address] HCT Normal 37-47 [facility] Comment on above: Result Comment: Canc elled via OM: Order cancelled - Patient discharged Performed By: #### L 100.0100 ####[facility] [address] [place], [address] HGB Normal 12.0-15.0 [facility] Comment on above: Result Comment: Canc elled via OM: Order cancelled - Patient discharged Performed By: #### L 100.0100 ####[facility] [address] [place], [address] MCH Normal 27.0-32.0 [facility] Comment on above: Result Comment: Canc elled via OM: Order cancelled - Patient discharged Performed By: #### L 100.0100 ####[facility] [address] [place], [address] MCHC Normal 32-36 [facility] Comment on above: Result Comment: Canc elled via OM: Order cancelled - Patient discharged Performed By: #### L 100.0100 ####[facility] [address] [place], [address] MCV Normal 81-99 [facility] Comment on above: Result Comment: Canc elled via OM: Order cancelled - Patient discharged Performed By: #### L 100.0100 ####[facility] [address] [place], [address] NEUT% Normal 47-70 [facility] Comment on above: Result Comment: Canc elled via OM: Order cancelled - Patient discharged Performed By: #### L 100.0100 ####[facility] [address] [place], [address] PLT Normal 150-450 [facility] Comment on above: Result Comment: Canc elled via OM: Order cancelled - Patient discharged Performed By: #### L 100.0100 ####[facility] [address] [place], [address] RBC Normal 4.2-5.4 [facility] Comment on above: Result Comment: Canc elled via OM: Order cancelled - Patient discharged Performed By: #### L 100.0100 ####[facility] [address] [place], [address] RDW CV Normal 11.6-14.6 [facility] Comment on above: Result Comment: Canc elled via OM: Order cancelled - Patient discharged Performed By: #### L 100.0100 ####[facility] [address] [place], [address] RDW SD Normal 35.1-43.9 [facility] Comment on above: Result Comment: Canc elled via OM: Order cancelled - Patient discharged Performed By: #### L 100.0100 ####[facility] [address] [place], [address] WBC Normal 4.4-11.0 [facility] Comment on above: Result Comment: Canc elled via OM: Order cancelled - Patient discharged Performed By: #### L 100.0100 ####[facility] [address] [place], [address] CNPNon 02-24-2024 CNPN Normal [facility] CBC W Auto Differential pane l (Bld)on 02-23-2024 Basophils (Bld) [#/Vol] 0.03 10*3/uL Normal <0.11 [facility] Comment on above: Order Comment: Speci men Type: BLOOD SPECIMENOrdering Facility: [facility] Address: [address] [place] [address] Performed By: #### 5 7021-8 ####[facility] LABCLIA [id number] [place] [address] [place] Basophils/100 WBC (Bld) 0.4 % Normal C [facility] Comment on above: Order Comment: Speci men Type: BLOOD SPECIMENOrdering Facility: [facility] Address: [address] [place] [address] Performed By: #### 5 7021-8 ####[facility] LABCLIA [id number] [place] [address] [place] Differential cell count method Nom (Bld) Auto Normal [facility] Comment on above: Order Comment: Speci men Type: BLOOD SPECIMENOrdering Facility: [facility] Address: [address] [place] [address] Performed By: #### 5 7021-8 ####[facility] LABCLIA [id number] [place] [address] [place] Eosinophils (Bld) [#/Vol] 0.05 10*3/uL Normal <0.46 [facility] Comment on above: Order Comment: Speci men Type: BLOOD SPECIMENOrdering Facility: [facility] Address: [address] [place] [address] Performed By: #### 5 7021-8 ####[facility] LABCLIA [id number] [place] [address] [place] Eosinophils/100 WBC (Bld) 0.7 % Normal [facility] Comment on above: Order Comment: Speci men Type: BLOOD SPECIMENOrdering Facility: [facility] Address: [address] [place] [address] Performed By: #### 5 7021-8 ####[facility] LABCLIA [id number] [place] [address] [place] [place] Erythrocyte distribution width (RBC) [Ratio] 16.3 % High 11.5-15.0 [facility] Comment on above: Order Comment: Speci men Type: BLOOD SPECIMENOrdering Facility: [facility] Address: [address] [place] [address] Performed By: #### 5 7021-8 ####[facility] LABCLIA [id number] [place] [address] [place] Hematocrit (Bld) [Volume fraction] 42.4 % Normal 36.0-46.0 [facility] Comment on above: Order Comment: Speci men Type: BLOOD SPECIMENOrdering Facility: [facility] Address: [address] [place] [address] Performed By: #### 5 7021-8 ####[facility] LABCLIA [id number] [place] [address] [place] Hemoglobin (Bld) [Mass/Vol] 13.5 g/dL Normal 11.5-15.5 [facility] Comment on above: Order Comment: Speci men Type: BLOOD SPECIMENOrdering Facility: [facility] Address: [address] [place] [address] Performed By: #### 5 7021-8 ####[facility] LABCLIA [id number] [place] [address] [place] Immature granulocytes (Bld) [#/Vol] 10*3/uL Normal <0.10 [facility] Comment on above: Order Comment: Speci men Type: BLOOD SPECIMENOrdering Facility: [facility] Address: [address] [place] [address] Performed By: #### 5 7021-8 ####[facility] LABCLIA [id number] [place] [address] [place] Immature granulocytes/100 WBC (Bld) 0.1 % Normal [facility] Comment on above: Order Comment: Speci men Type: BLOOD SPECIMENOrdering Facility: [facility] Address: [address] [place] [address] Performed By: #### 5 7021-8 ####[facility] LABCLIA [id number] [place] [address] [place] Lymphocytes (Bld) [#/Vol] 2.52 10*3/uL Normal 1.00-4.00 [facility] Comment on above: Order Comment: Speci men Type: BLOOD SPECIMENOrdering Facility: [facility] Address: [address] [place] [address] Performed By: #### 5 7021-8 ####[facility] LABCLIA [id number] [place] [address] [place] Lymphocytes/100 WBC (Bld) 36.2 % Normal [facility] Comment on above: Order Comment: Speci men Type: BLOOD SPECIMENOrdering Facility: [facility] Address: [address] [place] [address] Performed By: #### 5 7021-8 ####[facility] LABCLIA [id number] [place] [address] [place] MCH (RBC) [Entitic mass] 32.2 pg Normal 26.0-34.0 [facility] Comment on above: Order Comment: Speci men Type: BLOOD SPECIMENOrdering Facility: [facility] Address: [address] [place] [address] Performed By: #### 5 7021-8 ####[facility] LABIA [id number] [place] [address] [place] MCHC (RBC) [Mass/Vol] 31.8 g/dL Normal 30.5-36.0 [facility] Comment on above: Order Comment: Speci men Type: BLOOD SPECIMENOrdering Facility: [facility] Address: [address] [place] [address] Performed By: #### 5 7021-8 ####[facility] LABIA [id number] [place] [address] [place] MCV (RBC) [Entitic vol] 101.2 fL High 80.0-100.0 [facility] Comment on above: Order Comment: Speci men Type: BLOOD SPECIMENOrdering Facility: [facility] Address: [address] [place] [address] Performed By: #### 5 7021-8 ####[facility] LABCLIA [id number] [place] [address] [place] Monocytes (Bld) [#/Vol] 0.62 10*3/uL Normal <0.87 [facility] Comment on above: Order Comment: Speci men Type: BLOOD SPECIMENOrdering Facility: [facility] Address: [address] [place] [address] Performed By: #### 5 7021-8 ####[facility] LABCLIA [id number] [place] [address] [place] Monocytes/100 WBC (Bld) 8.9 % Normal [facility] Comment on above: Order Comment: Speci men Type: BLOOD SPECIMENOrdering Facility: [facility] Address: [address] [place] [address] Performed By: #### 5 7021-8 ####[facility] LABCLIA [id number] [place] [address] [place] Neutrophils (Bld) [#/Vol] 3.73 10*3/uL Normal 1.45-7.50 [facility] Comment on above: Order Comment: Speci men Type: BLOOD SPECIMENOrdering Facility: [facility] Address: [address] [place] [address] Performed By: #### 5 7021-8 ####[facility] LABCLIA [id number] [place] [address] [place] Neutrophils/100 WBC (Bld) 53.7 % Normal [facility] Comment on above: Order Comment: Speci men Type: BLOOD SPECIMENOrdering Facility: [facility] Address: [address] [place] [address] Performed By: #### 5 7021-8 ####[facility] LABCLIA [id number] [place] [address] [place] Nucleated RBC (Bld) [#/Vol] 10*3/uL Normal <0.01 [facility] Comment on above: Order Comment: Speci men Type: BLOOD SPECIMENOrdering Facility: [facility] Address: [address] [place] [address] Performed By: #### 5 7021-8 ####[facility] LABCLIA [id number] [place] [address] [place] Nucleated RBC/100 WBC (Bld) [Ratio] 0.0 /100 WBC Normal [facility] Comment on above: Order Comment: Speci men Type: BLOOD SPECIMENOrdering Facility: [facility] Address: [address] [place] [address] Performed By: #### 5 7021-8 ####[facility] LABIA [id number] [place] [address] [place] Platelet mean volume (Bld) [Entitic vol] 13.0 fL High 9.0-12.7 [facility] Comment on above: Order Comment: Speci men Type: BLOOD SPECIMENOrdering Facility: [facility] Address: [address] [place] [address] Performed By: #### 5 7021-8 ####[facility] LABIA [id number] [place] [address] [place] Platelets (Bld) [#/Vol] 237 10*3/uL Normal 150-400 [facility] Comment on above: Order Comment: Speci men Type: BLOOD SPECIMENOrdering Facility: [facility] Address: [address] [place] [address] Performed By: #### 5 7021-8 ####[facility] LABIA [id number] [place] [address] [place] RBC (Bld) [#/Vol] 4.19 10*6/uL Normal 3.90-5.20 [facility] Comment on above: Order Comment: Speci men Type: BLOOD SPECIMENOrdering Facility: [facility] Address: [address] [place] [address] Performed By: #### 5 7021-8 ####[facility] LABIA [id number] [place] [address] [place] WBC (Bld) [#/Vol] 6.96 10*3/uL Normal 3.70-11.00 [facility] Comment on above: Order Comment: Speci men Type: BLOOD SPECIMENOrdering Facility: [facility] Address: [address] [place] [address] Performed By: #### 5 7021-8 ####[facility] LABCLIA [id number] [place] [address] [place] CNOVon 02-23-2024 CNOV Normal [facility] CNPNon 02-23-2024 CNPN Normal [facility] Comprehensive metabolic 2000 panelon 02-23-2024 Albumin [Mass/Vol] 4.5 g/dL Normal 3.9-4.9 [facility] Comment on above: Order Comment: Speci men Type: BLOOD SPECIMENOrdering Facility: [facility] Address: [address] [place] [address] Performed By: #### 2 4323-8 ####[facility] LABCLIA [id number] [place] [address] [place] ALP [Catalytic activity/Vol] 58 U/L Normal 34-123 [facility] Comment on above: Order Comment: Speci men Type: BLOOD SPECIMENOrdering Facility: [facility] Address: [address] [place] [address] Performed By: #### 2 4323-8 ####[facility] LABCLIA [id number] [place] [address] [place] ALT [Catalytic activity/Vol] 23 U/L Normal 7-38 [facility] Comment on above: Order Comment: Speci men Type: BLOOD SPECIMENOrdering Facility: [facility] Address: [address] [place] [address] Performed By: #### 2 4323-8 ####[facility] LABCLIA [id number] [place] [address] [place] Anion gap [Moles/Vol] 14 mmol/L Normal 8-15 [facility] Comment on above: Order Comment: Speci men Type: BLOOD SPECIMENOrdering Facility: [facility] Address: [address] [place] [address] Performed By: #### 2 4323-8 ####[facility] LABCLIA [id number] [place] [address] [place] AST [Catalytic activity/Vol] 21 U/L Normal 13-35 [facility] Comment on above: Order Comment: Speci men Type: BLOOD SPECIMENOrdering Facility: [facility] Address: [address] [place] [address] Performed By: #### 2 4323-8 ####[facility] LABCLIA [id number] [place] [address] [place] Bilirubin [Mass/Vol] 0.4 mg/dL Normal 0.2-1.3 [facility] Comment on above: Order Comment: Speci men Type: BLOOD SPECIMENOrdering Facility: [facility] Address: [address] [place] [address] Performed By: #### 2 4323-8 ####[facility] LABCLIA [id number] [place] [address] [place] Calcium [Mass/Vol] 10.1 mg/dL Normal 8.5-10.2 [facility] Comment on above: Order Comment: Speci men Type: BLOOD SPECIMENOrdering Facility: [facility] Address: [address] [place] [address] Performed By: #### 2 4323-8 ####[facility] LABCLIA [id number] [place] [address] [place] Chloride [Moles/Vol] 95 mmol/L Low 98-107 [facility] Comment on above: Order Comment: Speci men Type: BLOOD SPECIMENOrdering Facility: [facility] Address: [address] [place] [address] Performed By: #### 2 4323-8 ####[facility] LABCLIA [id number] [place] [address] [place] CO2 [Moles/Vol] 24 mmol/L Normal 22-30 [facility] Comment on above: Order Comment: Speci men Type: BLOOD SPECIMENOrdering Facility: [facility] Address: [address] [place] [address] Performed By: #### 2 4323-8 ####[facility] LABIA [id number] [place] [address] [place] Creatinine [Mass/Vol] 1.31 mg/dL High 0.58-0.96 [facility] Comment on above: Order Comment: Speci men Type: BLOOD SPECIMENOrdering Facility: [facility] Address: [address] [place] [address] Performed By: #### 2 4323-8 ####[facility] LABIA [id number] [place] [address] [place] Creatinine and Glomerular filtration rate.predicted panel (S/P/Bld) 40 mL/min/1.73m??? Low >=60 [facility] Comment on above: Order Comment: Speci men Type: BLOOD SPECIMENOrdering Facility: [facility] Address: [address] [place] [address] Result Comment: Kimberley mated Glomerular Filtration Rate (eGFR) is calculated using the 2020 CKD-EPI creatinine equation. This equation utilizes serum creatinine, sex, and age as parameters. The creatinine assay has traceable calibration to isotope dilution-mass spectrometry. Refer to KDIGO guidelines for clinical interpretation. In patients with unstable renal function, e.g. those with acute kidney injury, the eGFR may not accurately reflect actual GFR. Performed By: #### 2 4323-8 ####[facility] LABIA [id number] [place] [address] [place] Glucose [Mass/Vol] 133 mg/dL High 74-99 [facility] Comment on above: Order Comment: Speci men Type: BLOOD SPECIMENOrdering Facility: [facility] Address: [address] [place] [address] Result Comment: The [place] Diabetes [employer] (ADA) provides guidance for cutoff values for fasting glucose and random glucose. The ADA defines fasting as no caloric intake for at least 8 hours. Fasting plasma glucose results between 100 to 125 mg/dL indicate increased risk for diabetes (prediabetes).Fasting plasma glucose results greater than or equal to 126 mg/dL meet the criteria for diagnosis of diabetes. In the absence of unequivocal hyperglycemia, results should be confirmed by repeat testing. In a patient with classic symptoms of hyperglycemia or hyperglycemic crisis, random plasma glucose results greater than or equal to 200 mg/dL meet the criteria for diagnosis of diabetes.Reference: Standards of Medical Care in Diabetes 2016, [place] [employer] Association. Diabetes Care. 2016.39(Suppl 1). Performed By: #### 2 4323-8 ####[facility] LABCLIA [id number] [place] [address] [place] Potassium [Moles/Vol] 4.7 mmol/L Normal 3.7-5.1 [facility] Comment on above: Order Comment: Speci men Type: BLOOD SPECIMENOrdering Facility: [facility] Address: [address] [place] [address] Performed By: #### 2 4323-8 ####[facility] LABCLIA [id number] [place] [address] [place] Protein [Mass/Vol] 8.0 g/dL Normal 6.3-8.0 [facility] Comment on above: Order Comment: Speci men Type: BLOOD SPECIMENOrdering Facility: [facility] Address: [address] [id number] Performed By: #### 2 4323-8 ####[facility] LABCLIA [id number] [place] [address] [place] Sodium [Moles/Vol] 133 mmol/L Low 136-144 [facility] Comment on above: Order Comment: Speci men Type: BLOOD SPECIMENOrdering Facility: [facility] Address: [address] [id number] Performed By: #### 2 4323-8 ####[facility] LABCLIA [id number] [place] [address] [place] Urea nitrogen [Mass/Vol] 43 mg/dL High 7-21 [facility] Comment on above: Order Comment: Speci men Type: BLOOD SPECIMENOrdering Facility: [facility] Address: [address] [place] [place] [id number] Performed By: #### 2 4323-8 ####[facility] LABCLIA [id number] [place] [address] [place] Basic Metabolic Profile (BMP )on 02-17-2024 BUN Normal - [facility] Comment on above: Result Comment: Canc elled via OM: Order cancelled - Patient discharged Performed By: #### L 500.2500 ####[facility] [address] [place], [address] BUN/CRE Normal - [facility] Comment on above: Result Comment: Canc elled via OM: Order cancelled - Patient discharged Performed By: #### L 500.2500 ####[facility] [address] [place], [address] CA,Total Normal 8.5-10.1 [facility] Comment on above: Result Comment: Canc elled via OM: Order cancelled - Patient discharged Performed By: #### L 500.2500 ####[facility] [address] [place], [address] CL Normal 98-107 [facility] Comment on above: Result Comment: Canc elled via OM: Order cancelled - Patient discharged Performed By: #### L 500.2500 ####[facility] [address] [place], [address] CO2 Normal 21.0-32.0 [facility] Comment on above: Result Comment: Canc elled via OM: Order cancelled - Patient discharged Performed By: #### L 500.2500 ####[facility] [address] [place], [address] CREAT,SERUM Normal 0.55-1.02 [facility] Comment on above: Result Comment: Canc elled via OM: Order cancelled - Patient discharged Performed By: #### L 500.2500 ####[facility] [address] [place], [address] EST GFR Normal >60 [facility] Comment on above: Result Comment: Canc elled via OM: Order cancelled - Patient discharged Performed By: #### L 500.2500 ####[facility] [address] [place], [address] EST GFR - AA Normal >60 [facility] Comment on above: Result Comment: Canc elled via OM: Order cancelled - Patient discharged Performed By: #### L 500.2500 ####[facility] [address] [place], [address] GAP Normal 5-15 [facility] Comment on above: Result Comment: Canc elled via OM: Order cancelled - Patient discharged Performed By: #### L 500.2500 ####[facility] [address] [place], [address] GLU Normal 74-106 [facility] Comment on above: Result Comment: Canc elled via OM: Order cancelled - Patient discharged Performed By: #### L 500.2500 ####[facility] [address] [place], [address] Potassium Normal 3.5-5.1 [facility] Comment on above: Result Comment: Canc elled via OM: Order cancelled - Patient discharged Performed By: #### L 500.2500 ####[facility] [address] [place], [address] Basic Metabolic Profile (BMP) Normal 136-145 [facility] Comment on above: Result Comment: Canc elled via OM: Order cancelled - Patient discharged Performed By: #### L 500.2500 ####[facility] [address] [place], [address] CBC W/Diff, Automatedon 10- Absolute Neut Normal 2.0-7.7 [facility] Comment on above: Result Comment: Canc elled via OM: Order cancelled - Patient discharged Performed By: #### L 100.0100 ####[facility] [address] [place], [address] HCT Normal 37-47 [facility] Comment on above: Result Comment: Canc elled via OM: Order cancelled - Patient discharged Performed By: #### L 100.0100 ####[facility] [address] [place], [address] HGB Normal 12.0-15.0 [facility] Comment on above: Result Comment: Canc elled via OM: Order cancelled - Patient discharged Performed By: #### L 100.0100 ####[facility] [address] [place], [address] MCH Normal 27.0-32.0 [facility] Comment on above: Result Comment: Canc elled via OM: Order cancelled - Patient discharged Performed By: #### L 100.0100 ####[facility] [address] [place], [address] MCHC Normal 32-36 [facility] Comment on above: Result Comment: Canc elled via OM: Order cancelled - Patient discharged Performed By: #### L 100.0100 ####[facility] [address] [place], [address] MCV Normal 81-99 [facility] Comment on above: Result Comment: Canc elled via OM: Order cancelled - Patient discharged Performed By: #### L 100.0100 ####[facility] [address] [place], [address] NEUT% Normal 47-70 [facility] Comment on above: Result Comment: Canc elled via OM: Order cancelled - Patient discharged Performed By: #### L 100.0100 ####[facility] [address] [place], [address] PLT Normal 150-450 [facility] Comment on above: Result Comment: Canc elled via OM: Order cancelled - Patient discharged Performed By: #### L 100.0100 ####[facility] [address] [place], [address] RBC Normal 4.2-5.4 [facility] Comment on above: Result Comment: Canc elled via OM: Order cancelled - Patient discharged Performed By: #### L 100.0100 ####[facility] [address] [place], [address] RDW CV Normal 11.6-14.6 [facility] Comment on above: Result Comment: Canc elled via OM: Order cancelled - Patient discharged Performed By: #### L 100.0100 ####[facility] [address] [place], [address] RDW SD Normal 35.1-43.9 [facility] Comment on above: Result Comment: Canc elled via OM: Order cancelled - Patient discharged Performed By: #### L 100.0100 ####[facility] [address] [place], [address] WBC Normal 4.4-11.0 [facility] Comment on above: Result Comment: Canc elled via OM: Order cancelled - Patient discharged Performed By: #### L 100.0100 ####[facility] [address] [place], [address] Surgery Visit Reporton 02-14 Surgery Visit Report Normal [facility] CNPNon 02-13-2024 CNPN Normal [facility] Basic Metabolic Profile (BMP )on 02-10-2024 BUN Normal 7-18 [facility] Comment on above: Result Comment: Canc elled via OM: Order cancelled - Patient discharged Performed By: #### L 500.2500 ####[facility] [address] [place], [address] BUN/CRE Normal 10-20 [facility] Comment on above: Result Comment: Canc elled via OM: Order cancelled - Patient discharged Performed By: #### L 500.2500 ####[facility] [address] [place], [address] CA,Total Normal 8.5-10.1 [facility] Comment on above: Result Comment: Canc elled via OM: Order cancelled - Patient discharged Performed By: #### L 500.2500 ####[facility] [address] [place], [address] CL Normal 98-107 [facility] Comment on above: Result Comment: Canc elled via OM: Order cancelled - Patient discharged Performed By: #### L 500.2500 ####[facility] [address] [place], [address] CO2 Normal 21.0-32.0 [facility] Comment on above: Result Comment: Canc elled via OM: Order cancelled - Patient discharged Performed By: #### L 500.2500 ####[facility] [address] [place], [address] CREAT,SERUM Normal 0.55-1.02 [facility] Comment on above: Result Comment: Canc elled via OM: Order cancelled - Patient discharged Performed By: #### L 500.2500 ####[facility] [address] [place], [address] EST GFR Normal >60 [facility] Comment on above: Result Comment: Canc elled via OM: Order cancelled - Patient discharged Performed By: #### L 500.2500 ####[facility] [address] [place], [address] EST GFR - AA Normal >60 [facility] Comment on above: Result Comment: Canc elled via OM: Order cancelled - Patient discharged Performed By: #### L 500.2500 ####[facility] [address] [place], [address] GAP Normal 5-15 [facility] Comment on above: Result Comment: Canc elled via OM: Order cancelled - Patient discharged Performed By: #### L 500.2500 ####[facility] [address] [place], [address] GLU Normal 74-106 [facility] Comment on above: Result Comment: Canc elled via OM: Order cancelled - Patient discharged Performed By: #### L 500.2500 ####[facility] [address] [place], [address] Potassium Normal 3.5-5.1 [facility] Comment on above: Result Comment: Canc elled via OM: Order cancelled - Patient discharged Performed By: #### L 500.2500 ####[facility] [address] [place], [address] Basic Metabolic Profile (BMP) Normal 136-145 [facility] Comment on above: Result Comment: Canc elled via OM: Order cancelled - Patient discharged Performed By: #### L 500.2500 ####[facility] [address] [place], [address] CBC W/Diff, Automatedon 10-1 Absolute Neut Normal 2.0-7.7 [facility] Comment on above: Result Comment: Canc elled via OM: Order cancelled - Patient discharged Performed By: #### L 100.0100 ####[facility] [address] [place], [address] HCT Normal 37-47 [facility] Comment on above: Result Comment: Canc elled via OM: Order cancelled - Patient discharged Performed By: #### L 100.0100 ####[facility] [address] [place], [address] HGB Normal 12.0-15.0 [facility] Comment on above: Result Comment: Canc elled via OM: Order cancelled - Patient discharged Performed By: #### L 100.0100 ####[facility] [address] [place], [address] MCH Normal 27.0-32.0 [facility] Comment on above: Result Comment: Canc elled via OM: Order cancelled - Patient discharged Performed By: #### L 100.0100 ####[facility] [address] [place], [address] MCHC Normal 32-36 [facility] Comment on above: Result Comment: Canc elled via OM: Order cancelled - Patient discharged Performed By: #### L 100.0100 ####[facility] [address] [place], [address] MCV Normal 81-99 [facility] Comment on above: Result Comment: Canc elled via OM: Order cancelled - Patient discharged Performed By: #### L 100.0100 ####[facility] [address] [place], [address] NEUT% Normal 47-70 [facility] Comment on above: Result Comment: Canc elled via OM: Order cancelled - Patient discharged Performed By: #### L 100.0100 ####[facility] [address] [place], [address] PLT Normal 150-450 [facility] Comment on above: Result Comment: Canc elled via OM: Order cancelled - Patient discharged Performed By: #### L 100.0100 ####[facility] [address] [place], [address] RBC Normal 4.2-5.4 [facility] Comment on above: Result Comment: Canc elled via OM: Order cancelled - Patient discharged Performed By: #### L 100.0100 ####[facility] [address] [place], [address] RDW CV Normal 11.6-14.6 [facility] Comment on above: Result Comment: Canc elled via OM: Order cancelled - Patient discharged Performed By: #### L 100.0100 ####[facility] [address] [place], [address] RDW SD Normal 35.1-43.9 [facility] Comment on above: Result Comment: Canc elled via OM: Order cancelled - Patient discharged Performed By: #### L 100.0100 ####[facility] [address] [place], [address] WBC Normal 4.4-11.0 [facility] Comment on above: Result Comment: Canc elled via OM: Order cancelled - Patient discharged Performed By: #### L 100.0100 ####[facility] [address] [place], [address] CNPNon 02-09-2024 CNPN Normal [facility] Ankle Brachial Indexon 02-07 Ankle Brachial Index Normal [facility] Bedside Glucoseon 02-08-2024 FINGERSTICK GLU 122 mg/dL High 74-106 [facility] Comment on above: Result Comment: LEVI HYDE OF PATIENT CARE PER NURSING PROTOCOL Performed By: #### L 501.080 ####[facility] [address] [place], [address] CNPNon 02-08-2024 CNPN Normal [facility] US Art Duplex Unilat Lower E xton 02-08-2024 US Art Duplex Unilat Lower Ext Normal [facility] Bedside Glucoseon 02-07-2024 FINGERSTICK GLU 145 mg/dL High 74-106 [facility] Comment on above: Result Comment: LEVI GEMENT OF PATIENT CARE PER NURSING PROTOCOL Performed By: #### L 501.080 ####[facility] [address] [place], [address] COVID 19 AG RAPID (RN ETHEL Vaughn)on 02-07-2024 SARS-CoV-2 (COVID-19) RNA MARCOS+probe Ql (Unsp spec) Normal [facility] Comment on above: Performed By: #### M 100.505 ####[facility] [address] [place], [address] Bedside Glucoseon 02-06-2024 FINGERSTICK GLU 142 mg/dL High [facility]106 [facility] Comment on above: Result Comment: LEVI GEMENT OF PATIENT CARE PER NURSING PROTOCOL Performed By: #### L 501.080 ####[facility] [address] [place], [address] Bedside Glucoseon 02-05-2024 FINGERSTICK GLU 133 mg/dL High [address] [facility] Comment on above: Result Comment: LEVI GEMENT OF PATIENT CARE PER NURSING PROTOCOL Performed By: #### L 501.080 ####[facility] [address] [place], [address] Bedside Glucoseon 02-04-2024 FINGERSTICK GLU 134 mg/dL High [address] [place] [address] Comment on above: Result Comment: LEVI GEMENT OF PATIENT CARE PER NURSING PROTOCOL Performed By: #### L 501.080 ####[facility] [address] [place], [address] Basic Metabolic Profile (BMP )on 02-03-2024 BUN/CRE 56.5 RATIO High 10-20 [facility] Comment on above: Performed By: #### L 500.2500 ####[facility] [address] [place], [address] CA,Total 9.4 mg/dL Normal 8.5-10.1 [facility] Comment on above: Performed By: #### L 500.2500 ####[facility] [address] [place], [address] Chloride [Moles/Vol] 102 mmol/L Normal 98-107 [facility] Comment on above: Performed By: #### L 500.2500 ####[facility] [address] [place], [address] CO2 [Moles/Vol] 26.0 mmol/L Normal 21.0-32.0 [facility] Comment on above: Performed By: #### L 500.2500 ####[facility] [address] [place], [address] Creatinine [Mass/Vol] 1.08 mg/dL High 0.55-1.02 [facility] Comment on above: Result Comment: The validity of the calculated GFR GFRAA in patients over70 years has not been determined. Clinical correlation isessential. Performed By: #### L 500.2500 ####[facility] [address] [place], [address] ECRCL 35.51 ml/min Normal [facility] Comment on above: Performed By: #### L 500.2500 ####[facility] [address] [place], [address] EST GFR - AA 62 mL/min Normal >60 [facility] Comment on above: Result Comment: Afri can Portuguese GFR Calc Performed By: #### L 500.2500 ####[facility] [address] [place], [address] GAP 8 Normal 5-15 [facility] Comment on above: Performed By: #### L 500.2500 ####[facility] [address] [place], [address] GFR/1.73 sq M.predicted among non-blacks MDRD (S/P/Bld) [Vol rate/Area] 51 mL/min/{1.73_m2} Low >60 [facility] Comment on above: Result Comment: Non- GFR Calc Performed By: #### L 500.2500 ####[facility] [address] [place], [address] Glucose [Mass/Vol] 134 mg/dL High 74-106 [facility] Comment on above: Result Comment: Fast ing Glucose result greater than or equal to 126 mg/dLsuggests DIABETES MELLITUS per A.D.A. criteria. Performed By: #### L 500.2500 ####[facility] [address] [place], [address] Potassium [Moles/Vol] 3.8 mmol/L Normal 3.5-5.1 [facility] Comment on above: Performed By: #### L 500.2500 ####[facility] [address] [place], [address] Sodium [Moles/Vol] 135 mmol/L Low 136-145 [facility] Comment on above: Performed By: #### L 500.2500 ####[facility] [address] [place], [address] Urea nitrogen [Mass/Vol] 61 mg/dL High 7-18 [facility] Comment on above: Performed By: #### L 500.2500 ####[facility] [address] [place], [address] Bedside Glucoseon 02-03-2024 FINGERSTICK GLU 115 mg/dL High 74-106 [facility] Comment on above: Result Comment: LEVI HYDE OF PATIENT CARE PER NURSING PROTOCOL Performed By: #### L 501.080 ####[facility] [address] [place], [address] CBC W/Diff, Automatedon 10-0 Anisocytosis Ql (Bld) 1+ Normal [facility] Comment on above: Performed By: #### L 100.0100 ####[facility] [address] [place], [address] Bedside Glucoseon 02-02-2024 FINGERSTICK GLU 111 mg/dL High 74-106 [facility] Comment on above: Result Comment: LEVI GEMENT OF PATIENT CARE PER NURSING PROTOCOL Performed By: #### L 501.080 ####[facility] [address] [place], [address] Bedside Glucoseon 02-01-2024 FINGERSTICK GLU 129 mg/dL High 74-106 [facility] Comment on above: Result Comment: LEVI GEMENT OF PATIENT CARE PER NURSING PROTOCOL Performed By: #### L 501.080 ####[facility] [address] [place], [address] Bedside Glucoseon 01-31-2024 FINGERSTICK GLU 116 mg/dL High 74-106 [facility] Comment on above: Result Comment: LEVI GEMENT OF PATIENT CARE PER NURSING PROTOCOL Performed By: #### L 501.080 ####[facility] [address] [place], [address] COVID 19 AG RAPID (RN ETHEL T)on 01-31-2024 SARS-CoV-2 (COVID-19) RNA MARCOS+probe Ql (Unsp spec) Normal [facility] Comment on above: Performed By: #### M 100.505 ####[facility] [address] [place], [address] Bedside Glucoseon 01-30-2024 FINGERSTICK GLU 126 mg/dL High 74-106 [facility] Comment on above: Result Comment: LEVI GEMENT OF PATIENT CARE PER NURSING PROTOCOL Performed By: #### L 501.080 ####[facility] [address] [place], [address] Bedside Glucoseon 01-29-2024 FINGERSTICK GLU 120 mg/dL High 74-106 [facility] Comment on above: Result Comment: LEVI GEMENT OF PATIENT CARE PER NURSING PROTOCOL Performed By: #### L 501.080 ####[facility] [address] [place], [address] Potassiumon 01-29-2024 Potassium [Moles/Vol] 4.2 mmol/L Normal 3.5-5.1 [facility] Comment on above: Result Comment: Slig ht Hemolysis, Result may be falsely increased. Performed By: #### L 501.5600 ####[facility] [address] [place], [address] Stool Occult Blood iFOBon STOB Negative Normal [facility] Comment on above: Performed By: #### M 100.7900 ####[facility] [address] [place], [address] BNP,B-Type NATRIURETIC PEPTI Juvenal 01-28-2024 Natriuretic peptide B (Bld) [Mass/Vol] 458.1 pg/mL High 0-100 [facility] Comment on above: Performed By: #### L 503.6620 ####[facility] [address] [place], [address] Basic Metabolic Profile (BMP )on 01-28-2024 BUN/CRE 24.0 RATIO High 10-20 [facility] Comment on above: Performed By: #### L 500.2500, L100.0100, L500.3400, L501.5200 ####[facility] [address] [place], [address] CA,Total 9.2 mg/dL Normal 8.5-10.1 [facility] Comment on above: Performed By: #### L 500.2500, L100.0100, L500.3400, L501.5200 ####[facility] [address] [place], [address] Chloride [Moles/Vol] 101 mmol/L Normal 98-107 [facility] Comment on above: Performed By: #### L 500.2500, L100.0100, L500.3400, L501.5200 ####[facility] [address] [place], [address] CO2 [Moles/Vol] 28.0 mmol/L Normal 21.0-32.0 [facility] Comment on above: Performed By: #### L 500.2500, L100.0100, L500.3400, L501.5200 ####[facility] [address] [place], [address] Creatinine [Mass/Vol] 0.92 mg/dL Normal 0.55-1.02 [facility] Comment on above: Result Comment: The validity of the calculated GFR GFRAA in patients over70 years has not been determined. Clinical correlation isessential. Performed By: #### L 500.2500, L100.0100, L500.3400, L501.5200 ####[facility] [address] [place], [address] ECRCL 41.82 ml/min Normal [facility] Comment on above: Performed By: #### L 500.2500, L100.0100, L500.3400, L501.5200 ####[facility] [address] [place], [address] EST GFR - AA 75 mL/min Normal >60 [facility] Comment on above: Result Comment: Afri can Portuguese GFR Calc Performed By: #### L 500.2500, L100.0100, L500.3400, L501.5200 ####[facility] [address] [place], [address] GAP 8 Normal 5-15 [facility] Comment on above: Performed By: #### L 500.2500, L100.0100, L500.3400, L501.5200 ####[facility] [address] [place], [address] GFR/1.73 sq M.predicted among non-blacks MDRD (S/P/Bld) [Vol rate/Area] 62 mL/min/{1.73_m2} Normal >60 [facility] Comment on above: Result Comment: Non- GFR Calc Performed By: #### L 500.2500, L100.0100, L500.3400, L501.5200 ####[facility] [address] [place], [address] Glucose [Mass/Vol] 110 mg/dL High 74-106 [facility] Comment on above: Result Comment: Fast ing Glucose result from 100 to 125 mg/dLsuggests IMPAIRED HOMEOSTASIS per A.D.A. criteria. Performed By: #### L 500.2500, L100.0100, L500.3400, L501.5200 ####[facility] [address] [place], [address] Potassium [Moles/Vol] 3.0 mmol/L Low 3.5-5.1 [facility] Comment on above: Performed By: #### L 500.2500, L100.0100, L500.3400, L501.5200 ####[facility] [address] [place], [address] Sodium [Moles/Vol] 137 mmol/L Normal 136-145 [facility] Comment on above: Performed By: #### L 500.2500, L100.0100, L500.3400, L501.5200 ####[facility] [address] [place], [address] Urea nitrogen [Mass/Vol] 22 mg/dL High 7-18 [facility] Comment on above: Performed By: #### L 500.2500, L100.0100, L500.3400, L501.5200 ####[facility] [address] [place], [address] Bedside Glucoseon 01-28-2024 FINGERSTICK GLU 119 mg/dL High 74-106 [facility] Comment on above: Result Comment: LEVI HYDE OF PATIENT CARE PER NURSING PROTOCOL Performed By: #### L 501.080 ####[facility] [address] [place], [address] CBC W/Diff, Automatedon 01-01 Absolute Lymph 1.26 X10 3/uL Normal 0.83-4.51 [facility] Comment on above: Performed By: #### L 500.2500, L100.0100, L500.3400, L501.5200 ####[facility] [address] [place], [address] Absolute Neut 3.2 X10 3/uL Normal 2.0-7.7 [facility] Comment on above: Performed By: #### L 500.2500, L100.0100, L500.3400, L501.5200 ####[facility] [address] [place], [address] Basophils/100 WBC (Bld) 0.9 % Normal 0-1 [facility] Comment on above: Performed By: #### L 500.2500, L100.0100, L500.3400, L501.5200 ####[facility] [address] [place], [address] Eosinophils/100 WBC (Bld) 4.1 % Normal 0-5 [facility] Comment on above: Performed By: #### L 500.2500, L100.0100, L500.3400, L501.5200 ####[facility] [address] [place], [address] Erythrocyte distribution width (RBC) [Ratio] 16.7 % High 11.6-14.6 [facility] Comment on above: Performed By: #### L 500.2500, L100.0100, L500.3400, L501.5200 ####[facility] [address] [place], [address] Hematocrit (Bld) [Volume fraction] 30.6 % Low 37-47 [facility] Comment on above: Performed By: #### L 500.2500, L100.0100, L500.3400, L501.5200 ####[facility] [address] [place], [address] Hemoglobin (Bld) [Mass/Vol] 9.6 g/dL Low 12.0-15.0 [facility] Comment on above: Performed By: #### L 500.2500, L100.0100, L500.3400, L501.5200 ####[facility] [address] [place], [address] IG% 0.600 Normal 0.0-0.9 [facility] Comment on above: Result Comment: IG% - Immature Granulocytes (promyelocytes, myelocytes andmetamyelocytes) > 1% indicates that a LEFT SHIFT is Present. Performed By: #### L 500.2500, L100.0100, L500.3400, L501.5200 ####[facility] [address] [place], [address] Lymphocytes/100 WBC (Bld) 23.5 % Normal 19-41 [facility] Comment on above: Performed By: #### L 500.2500, L100.0100, L500.3400, L501.5200 ####[facility] [address] [place], [address] MCH (RBC) [Entitic mass] 30.7 pg Normal 27.0-32.0 [facility] Comment on above: Performed By: #### L 500.2500, L100.0100, L500.3400, L501.5200 ####[facility] [address] [place], [address] MCHC (RBC) [Mass/Vol] 31.4 g/dL Low 32-36 [facility] Comment on above: Performed By: #### L 500.2500, L100.0100, L500.3400, L501.5200 ####[facility] [address] [place], [address] MCV (RBC) [Entitic vol] 97.8 fL Normal 81-99 [facility] Comment on above: Performed By: #### L 500.2500, L100.0100, L500.3400, L501.5200 ####[facility] [address] [place], [address] Monocytes/100 WBC (Bld) 11.2 % High 0-10 [facility] Comment on above: Performed By: #### L 500.2500, L100.0100, L500.3400, L501.5200 ####[facility] [address] [place], [address] Neutrophils/100 WBC (Bld) 59.7 % Normal 47-70 [facility] Comment on above: Performed By: #### L 500.2500, L100.0100, L500.3400, L501.5200 ####[facility] [address] [place], [address] Nucleated RBC (Bld) [#/Vol] 0 10*3/uL Normal 0-5 [facility] Comment on above: Performed By: #### L 500.2500, L100.0100, L500.3400, L501.5200 ####[facility] [address] [place], [address] Platelet mean volume (Bld) [Entitic vol] 10.0 fL Normal 6.2-12.0 [facility] Comment on above: Performed By: #### L 500.2500, L100.0100, L500.3400, L501.5200 ####[facility] [address] [place], [address] Platelets (Bld) [#/Vol] 256 10*3/uL Normal 150-450 [facility] Comment on above: Performed By: #### L 500.2500, L100.0100, L500.3400, L501.5200 ####[facility] [address] [place], [address] RBC (Bld) [#/Vol] 3.13 10*6/uL Low 4.2-5.4 [facility] Comment on above: Performed By: #### L 500.2500, L100.0100, L500.3400, L501.5200 ####[facility] [address] [place], [address] RDW SD 58.1 fl High 35.1-43.9 [facility] Comment on above: Performed By: #### L 500.2500, L100.0100, L500.3400, L501.5200 ####[facility] [address] [place], [address] WBC (Bld) [#/Vol] 5.4 10*3/uL Normal 4.4-11.0 [facility] Comment on above: Performed By: #### L 500.2500, L100.0100, L500.3400, L501.5200 ####[facility] [address] [place], [address] Liver Profileon 01-28-2024 Albumin [Mass/Vol] 2.8 g/dL Low 3.2-5.0 [facility] Comment on above: Performed By: #### L 500.2500, L100.0100, L500.3400, L501.5200 ####[facility] [address] [place], [address] ALK P 65 U/L Normal 45-117 [facility] Comment on above: Performed By: #### L 500.2500, L100.0100, L500.3400, L501.5200 ####[facility] [address] [place], [address] ALT [Catalytic activity/Vol] 42 U/L Normal 13-56 [facility] Comment on above: Performed By: #### L 500.2500, L100.0100, L500.3400, L501.5200 ####[facility] [address] [place], [address] AST [Catalytic activity/Vol] 30 U/L Normal 15-37 [facility] Comment on above: Performed By: #### L 500.2500, L100.0100, L500.3400, L501.5200 ####[facility] [address] [place], [address] Bilirubin [Mass/Vol] 0.70 mg/dL Normal 0.20-1.00 [facility] Comment on above: Result Comment: For patients on eltrombopag therapy, use of Dimension [place] TBIL is not recommended. Performed By: #### L 500.2500, L100.0100, L500.3400, L501.5200 ####[facility] [address] [place], [address] Bilirubin.direct [Mass/Vol] 0.20 mg/dL Normal 0.00-0.30 [facility] Comment on above: Performed By: #### L 500.2500, L100.0100, L500.3400, L501.5200 ####[facility] [address] [place], [address] Globulin (S) [Mass/Vol] 3.9 g/dL Normal 2.2-4.2 [facility] Comment on above: Performed By: #### L 500.2500, L100.0100, L500.3400, L501.5200 ####[facility] [address] [place], [address] T PROT 6.7 g/dL Normal 6.4-8.2 [facility] Comment on above: Performed By: #### L 500.2500, L100.0100, L500.3400, L501.5200 ####[facility] [address] [place], [address] Magnesiumon 01-28-2024 Magnesium [Mass/Vol] 1.7 mg/dL Normal 1.6-2.6 [facility] Comment on above: Performed By: #### L 500.2500, L100.0100, L500.3400, L501.5200 ####[facility] [address] [place], [address] Basic Metabolic Profile (BMP )on 01-25-2024 BUN/CRE 21.0 RATIO High 10-20 [facility] Comment on above: Performed By: #### L 100.0500, L500.2500 ####[facility] [address] [place], [address] CA,Total 9.6 mg/dL Normal 8.5-10.1 [facility] Comment on above: Performed By: #### L 100.0500, L500.2500 ####[facility] [address] [place], [address] Chloride [Moles/Vol] 103 mmol/L Normal 98-107 [facility] Comment on above: Performed By: #### L 100.0500, L500.2500 ####[facility] [address] [place], [address] CO2 [Moles/Vol] 28.0 mmol/L Normal 21.0-32.0 [facility] Comment on above: Performed By: #### L 100.0500, L500.2500 ####[facility] [address] [place], [address] Creatinine [Mass/Vol] 0.90 mg/dL Normal 0.55-1.02 [facility] Comment on above: Result Comment: The validity of the calculated GFR GFRAA in patients over70 years has not been determined. Clinical correlation isessential. Performed By: #### L 100.0500, L500.2500 ####[facility] [address] [place], [address] ECRCL 43.63 ml/min Normal [facility] Comment on above: Performed By: #### L 100.0500, L500.2500 ####[facility] [address] [place], [address] EST GFR - AA 76 mL/min Normal >60 [facility] Comment on above: Result Comment: Afri can Portuguese GFR Calc Performed By: #### L 100.0500, L500.2500 ####[facility] [address] [place], [address] GAP 6 Normal 5-15 [facility] Comment on above: Performed By: #### L 100.0500, L500.2500 ####[facility] [address] [place], [address] GFR/1.73 sq M.predicted among non-blacks MDRD (S/P/Bld) [Vol rate/Area] 63 mL/min/{1.73_m2} Normal >60 [facility] Comment on above: Result Comment: Non- GFR Calc Performed By: #### L 100.0500, L500.2500 ####[facility] [address] [place], [address] Glucose [Mass/Vol] 152 mg/dL High 74-106 [facility] Comment on above: Result Comment: Fast ing Glucose result greater than or equal to 126 mg/dLsuggests DIABETES MELLITUS per A.D.A. criteria. Performed By: #### L 100.0500, L500.2500 ####[facility] [address] [place], [address] Potassium [Moles/Vol] 3.5 mmol/L Normal 3.5-5.1 [facility] Comment on above: Performed By: #### L 100.0500, L500.2500 ####[facility] [address] [place], [address] Sodium [Moles/Vol] 137 mmol/L Normal 136-145 [facility] Comment on above: Performed By: #### L 100.0500, L500.2500 ####[facility] [address] [place], [address] Urea nitrogen [Mass/Vol] 19 mg/dL High 7-18 [facility] Comment on above: Performed By: #### L 100.0500, L500.2500 ####[facility] [address] [place], [address] CBC-Complete Blood Cnt No Di ffon 01-25-2024 Erythrocyte distribution width (RBC) [Ratio] 15.9 % High 11.6-14.6 [facility] Comment on above: Performed By: #### L 100.0500, L500.2500 ####[facility] [address] [place], [address] Hematocrit (Bld) [Volume fraction] 27.9 % Low 37-47 [facility] Comment on above: Performed By: #### L 100.0500, L500.2500 ####[facility] [address] [place], [address] Hemoglobin (Bld) [Mass/Vol] 9.0 g/dL Low 12.0-15.0 [facility] Comment on above: Performed By: #### L 100.0500, L500.2500 ####[facility] [address] [place], [address] MCH (RBC) [Entitic mass] 31.1 pg Normal 27.0-32.0 [facility] Comment on above: Performed By: #### L 100.0500, L500.2500 ####[facility] [address] [place], [address] MCHC (RBC) [Mass/Vol] 32.3 g/dL Normal 32-36 [facility] Comment on above: Performed By: #### L 100.0500, L500.2500 ####[facility] [address] [place], [address] MCV (RBC) [Entitic vol] 96.5 fL Normal 81-99 [facility] Comment on above: Performed By: #### L 100.0500, L500.2500 ####[facility] [address] [place], [address] Platelet mean volume (Bld) [Entitic vol] 10.1 fL Normal 6.2-12.0 [facility] Comment on above: Performed By: #### L 100.0500, L500.2500 ####[facility] [address] [place], [address] Platelets (Bld) [#/Vol] 253 10*3/uL Normal 150-450 [facility] Comment on above: Performed By: #### L 100.0500, L500.2500 ####[facility] [address] [place], [address] RBC (Bld) [#/Vol] 2.89 10*6/uL Low 4.2-5.4 [facility] Comment on above: Performed By: #### L 100.0500, L500.2500 ####[facility] [address] [place], [address] RDW SD 56.8 fl High 35.1-43.9 [facility] Comment on above: Performed By: #### L 100.0500, L500.2500 ####[facility] [address] [place], [address] WBC (Bld) [#/Vol] 5.4 10*3/uL Normal 4.4-11.0 [facility] Comment on above: Performed By: #### L 100.0500, L500.2500 ####[facility] [address] [place], [address] Basic Metabolic Profile (BMP )on 01-24-2024 BUN/CRE 19.7 RATIO Normal 10-20 [facility] Comment on above: Performed By: #### L 501.2300, L100.0100, L500.2500, L501.5200 ####[facility] [address] [place], [address] CA,Total 9.1 mg/dL Normal 8.5-10.1 [facility] Comment on above: Performed By: #### L 501.2300, L100.0100, L500.2500, L501.5200 ####[facility] [address] [place], [address] Chloride [Moles/Vol] 105 mmol/L Normal 98-107 [facility] Comment on above: Performed By: #### L 501.2300, L100.0100, L500.2500, L501.5200 ####[facility] [address] [place], [address] CO2 [Moles/Vol] 28.0 mmol/L Normal 21.0-32.0 [facility] Comment on above: Performed By: #### L 501.2300, L100.0100, L500.2500, L501.5200 ####[facility] [address] [place], [address] Creatinine [Mass/Vol] 0.92 mg/dL Normal 0.55-1.02 [facility] Comment on above: Result Comment: The validity of the calculated GFR GFRAA in patients over70 years has not been determined. Clinical correlation isessential. Performed By: #### L 501.2300, L100.0100, L500.2500, L501.5200 ####[facility] [address] [place], [address] ECRCL 42.68 ml/min Normal [facility] Comment on above: Performed By: #### L 501.2300, L100.0100, L500.2500, L501.5200 ####[facility] [address] [place], [address] EST GFR - AA 75 mL/min Normal >60 [facility] Comment on above: Result Comment: Afri can Portuguese GFR Calc Performed By: #### L 501.2300, L100.0100, L500.2500, L501.5200 ####[facility] [address] [place], [address] GAP 5 Normal 5-15 [facility] Comment on above: Performed By: #### L 501.2300, L100.0100, L500.2500, L501.5200 ####[facility] [address] [place], [address] GFR/1.73 sq M.predicted among non-blacks MDRD (S/P/Bld) [Vol rate/Area] 62 mL/min/{1.73_m2} Normal >60 [facility] Comment on above: Result Comment: Non- GFR Calc Performed By: #### L 501.2300, L100.0100, L500.2500, L501.5200 ####[facility] [address] [place], [address] Glucose [Mass/Vol] 133 mg/dL High 74-106 [facility] Comment on above: Result Comment: Fast ing Glucose result greater than or equal to 126 mg/dLsuggests DIABETES MELLITUS per A.D.A. criteria. Performed By: #### L 501.2300, L100.0100, L500.2500, L501.5200 ####[facility] [address] [place], [address] Potassium [Moles/Vol] 3.4 mmol/L Low 3.5-5.1 [facility] Comment on above: Performed By: #### L 501.2300, L100.0100, L500.2500, L501.5200 ####[facility] [address] [place], [address] Sodium [Moles/Vol] 138 mmol/L Normal 136-145 [facility] Comment on above: Performed By: #### L 501.2300, L100.0100, L500.2500, L501.5200 ####[facility] [address] [place], [address] Urea nitrogen [Mass/Vol] 18 mg/dL Normal 7-18 [facility] Comment on above: Performed By: #### L 501.2300, L100.0100, L500.2500, L501.5200 ####[facility] [address] [place], [address] CBC W/Diff, Automatedon 09-06 05-2023 Absolute Lymph 1.02 X10 3/uL Normal 0.83-4.51 [facility] Comment on above: Performed By: #### L 501.2300, L100.0100, L500.2500, L501.5200 ####[facility] [address] [place], [address] Absolute Neut 3.1 X10 3/uL Normal 2.0-7.7 [facility] Comment on above: Performed By: #### L 501.2300, L100.0100, L500.2500, L501.5200 ####[facility] [address] [place], [address] Basophils/100 WBC (Bld) 0.6 % Normal 0-1 [facility] Comment on above: Performed By: #### L 501.2300, L100.0100, L500.2500, L501.5200 ####[facility] [address] [place], [address] Eosinophils/100 WBC (Bld) 5.6 % High 0-5 [facility] Comment on above: Performed By: #### L 501.2300, L100.0100, L500.2500, L501.5200 ####[facility] [address] [place], [address] Erythrocyte distribution width (RBC) [Ratio] 15.9 % High 11.6-14.6 [facility] Comment on above: Performed By: #### L 501.2300, L100.0100, L500.2500, L501.5200 ####[facility] [address] [place], [address] Hematocrit (Bld) [Volume fraction] 28.0 % Low 37-47 [facility] Comment on above: Performed By: #### L 501.2300, L100.0100, L500.2500, L501.5200 ####[facility] [address] [place], [address] Hemoglobin (Bld) [Mass/Vol] 8.8 g/dL Low 12.0-15.0 [facility] Comment on above: Performed By: #### L 501.2300, L100.0100, L500.2500, L501.5200 ####[facility] [address] [place], [address] IG% 0.400 Normal 0.0-0.9 [facility] Comment on above: Result Comment: IG% - Immature Granulocytes (promyelocytes, myelocytes andmetamyelocytes) > 1% indicates that a LEFT SHIFT is Present. Performed By: #### L 501.2300, L100.0100, L500.2500, L501.5200 ####[facility] [address] [place], [address] Lymphocytes/100 WBC (Bld) 19.6 % Normal 19-41 [facility] Comment on above: Performed By: #### L 501.2300, L100.0100, L500.2500, L501.5200 ####[facility] [address] [place], [address] MCH (RBC) [Entitic mass] 30.9 pg Normal 27.0-32.0 [facility] Comment on above: Performed By: #### L 501.2300, L100.0100, L500.2500, L501.5200 ####[facility] [address] [place], [address] MCHC (RBC) [Mass/Vol] 31.4 g/dL Low 32-36 [facility] Comment on above: Performed By: #### L 501.2300, L100.0100, L500.2500, L501.5200 ####[facility] [address] [place], [address] MCV (RBC) [Entitic vol] 98.2 fL Normal 81-99 [facility] Comment on above: Performed By: #### L 501.2300, L100.0100, L500.2500, L501.5200 ####[facility] [address] [place], [address] Monocytes/100 WBC (Bld) 13.7 % High 0-10 [facility] Comment on above: Performed By: #### L 501.2300, L100.0100, L500.2500, L501.5200 ####[facility] [address] [place], [address] Neutrophils/100 WBC (Bld) 60.1 % Normal 47-70 [facility] Comment on above: Performed By: #### L 501.2300, L100.0100, L500.2500, L501.5200 ####[facility] [address] [place], [address] Nucleated RBC (Bld) [#/Vol] 0 10*3/uL Normal 0-5 [facility] Comment on above: Performed By: #### L 501.2300, L100.0100, L500.2500, L501.5200 ####[facility] [address] [place], [address] Platelet mean volume (Bld) [Entitic vol] 9.2 fL Normal 6.2-12.0 [facility] Comment on above: Performed By: #### L 501.2300, L100.0100, L500.2500, L501.5200 ####[facility] [address] [place], [address] Platelets (Bld) [#/Vol] 249 10*3/uL Normal 150-450 [facility] Comment on above: Performed By: #### L 501.2300, L100.0100, L500.2500, L501.5200 ####[facility] [address] [place], [address] RBC (Bld) [#/Vol] 2.85 10*6/uL Low 4.2-5.4 [facility] Comment on above: Performed By: #### L 501.2300, L100.0100, L500.2500, L501.5200 ####[facility] [address] [place], [address] RDW SD 57.8 fl High 35.1-43.9 [facility] Comment on above: Performed By: #### L 501.2300, L100.0100, L500.2500, L501.5200 ####[facility] [address] [place], [address] WBC (Bld) [#/Vol] 5.2 10*3/uL Normal 4.4-11.0 [facility] Comment on above: Performed By: #### L 501.2300, L100.0100, L500.2500, L501.5200 ####[facility] [address] [place], [address] Magnesiumon 01-24-2024 Magnesium [Mass/Vol] 1.8 mg/dL Normal 1.6-2.6 [facility] Comment on above: Performed By: #### L 501.2300, L100.0100, L500.2500, L501.5200 ####[facility] [address] [place], [address] Phosphoruson 01-24-2024 Phosphate [Mass/Vol] 3.5 mg/dL Normal 2.5-4.9 [facility] Comment on above: Performed By: #### L 501.2300, L100.0100, L500.2500, L501.5200 ####[facility] [address] [place], [address] Basic Metabolic Profile (BMP )on 01-23-2024 BUN/CRE 20.7 RATIO High 10-20 [facility] Comment on above: Performed By: #### L 500.2500, L100.0100 ####[facility] [address] [place], [address] CA,Total 9.5 mg/dL Normal 8.5-10.1 [facility] Comment on above: Performed By: #### L 500.2500, L100.0100 ####[facility] [address] [place], [address] Chloride [Moles/Vol] 105 mmol/L Normal 98-107 [facility] Comment on above: Performed By: #### L 500.2500, L100.0100 ####[facility] [address] [place], [address] CO2 [Moles/Vol] 23.0 mmol/L Normal 21.0-32.0 [facility] Comment on above: Performed By: #### L 500.2500, L100.0100 ####[facility] [address] [place], [address] Creatinine [Mass/Vol] 0.97 mg/dL Normal 0.55-1.02 [facility] Comment on above: Result Comment: The validity of the calculated GFR GFRAA in patients over70 years has not been determined. Clinical correlation isessential. Performed By: #### L 500.2500, L100.0100 ####[facility] [address] [place], [address] ECRCL 40.48 ml/min Normal [facility] Comment on above: Performed By: #### L 500.2500, L100.0100 ####[facility] [address] [place], [address] EST GFR - AA 71 mL/min Normal >60 [facility] Comment on above: Result Comment: Afri can Portuguese GFR Calc Performed By: #### L 500.2500, L100.0100 ####[facility] [address] [place], [address] GAP 10 Normal 5-15 [facility] Comment on above: Performed By: #### L 500.2500, L100.0100 ####[facility] [address] [place], [address] GFR/1.73 sq M.predicted among non-blacks MDRD (S/P/Bld) [Vol rate/Area] 58 mL/min/{1.73_m2} Low >60 [facility] Comment on above: Result Comment: Non- GFR Calc Performed By: #### L 500.2500, L100.0100 ####[facility] [address] [place], [address] Glucose [Mass/Vol] 106 mg/dL Normal 74-106 [facility] Comment on above: Result Comment: Fast ing Glucose result from 100 to 125 mg/dLsuggests IMPAIRED HOMEOSTASIS per A.D.A. criteria. Performed By: #### L 500.2500, L100.0100 ####[facility] [address] [place], [address] Potassium [Moles/Vol] 3.5 mmol/L Normal 3.5-5.1 [facility] Comment on above: Performed By: #### L 500.2500, L100.0100 ####[facility] [address] [place], [address] Sodium [Moles/Vol] 138 mmol/L Normal 136-145 [facility] Comment on above: Performed By: #### L 500.2500, L100.0100 ####[facility] [address] [place], [address] Urea nitrogen [Mass/Vol] 20 mg/dL High 7-18 [facility] Comment on above: Performed By: #### L 500.2500, L100.0100 ####[facility] [address] [place], [address] CBC W/Diff, Automatedon 09-2 -2023 Absolute Lymph 0.84 X10 3/uL Normal 0.83-4.51 [facility] Comment on above: Performed By: #### L 500.2500, L100.0100 ####[facility] [address] [place], [address] Absolute Neut 3.9 X10 3/uL Normal 2.0-7.7 [facility] Comment on above: Performed By: #### L 500.2500, L100.0100 ####[facility] [address] [place], [address] Basophils/100 WBC (Bld) 0.7 % Normal 0-1 [facility] Comment on above: Performed By: #### L 500.2500, L100.0100 ####[facility] [address] [place], [address] Eosinophils/100 WBC (Bld) 4.8 % Normal 0-5 [facility] Comment on above: Performed By: #### L 500.2500, L100.0100 ####[facility] [address] [place], [address] Erythrocyte distribution width (RBC) [Ratio] 16.0 % High 11.6-14.6 [facility] Comment on above: Performed By: #### L 500.2500, L100.0100 ####[facility] [address] [place], [address] Hematocrit (Bld) [Volume fraction] 28.5 % Low 37-47 [facility] Comment on above: Performed By: #### L 500.2500, L100.0100 ####[facility] [address] [place], [address] Hemoglobin (Bld) [Mass/Vol] 9.0 g/dL Low 12.0-15.0 [facility] Comment on above: Performed By: #### L 500.2500, L100.0100 ####[facility] [address] [place], [address] IG% 0.400 Normal 0.0-0.9 [facility] Comment on above: Result Comment: IG% - Immature Granulocytes (promyelocytes, myelocytes andmetamyelocytes) > 1% indicates that a LEFT SHIFT is Present. Performed By: #### L 500.2500, L100.0100 ####[facility] [address] [place], [address] Lymphocytes/100 WBC (Bld) 14.8 % Low 19-41 [facility] Comment on above: Performed By: #### L 500.2500, L100.0100 ####[facility] [address] [place], [address] MCH (RBC) [Entitic mass] 31.1 pg Normal 27.0-32.0 [facility] Comment on above: Performed By: #### L 500.2500, L100.0100 ####[facility] [address] [place], [address] MCHC (RBC) [Mass/Vol] 31.6 g/dL Low 32-36 [facility] Comment on above: Performed By: #### L 500.2500, L100.0100 ####[facility] [address] [place], [address] MCV (RBC) [Entitic vol] 98.6 fL Normal 81-99 [facility] Comment on above: Performed By: #### L 500.2500, L100.0100 ####[facility] [address] [place], [address] Monocytes/100 WBC (Bld) 11.0 % High 0-10 [facility] Comment on above: Performed By: #### L 500.2500, L100.0100 ####[facility] [address] [place], [address] Neutrophils/100 WBC (Bld) 68.3 % Normal 47-70 [facility] Comment on above: Performed By: #### L 500.2500, L100.0100 ####[facility] [address] [place], [address] Nucleated RBC (Bld) [#/Vol] 0 10*3/uL Normal 0-5 [facility] Comment on above: Performed By: #### L 500.2500, L100.0100 ####[facility] [address] [place], [address] Platelet mean volume (Bld) [Entitic vol] 10.4 fL Normal 6.2-12.0 [facility] Comment on above: Performed By: #### L 500.2500, L100.0100 ####[facility] [address] [place], [address] Platelets (Bld) [#/Vol] 240 10*3/uL Normal 150-450 [facility] Comment on above: Performed By: #### L 500.2500, L100.0100 ####[facility] [address] [place], [address] RBC (Bld) [#/Vol] 2.89 10*6/uL Low 4.2-5.4 [facility] Comment on above: Performed By: #### L 500.2500, L100.0100 ####[facility] [address] [place], [address] RDW SD 57.8 fl High 35.1-43.9 [facility] Comment on above: Performed By: #### L 500.2500, L100.0100 ####[facility] [address] [place], [address] WBC (Bld) [#/Vol] 5.7 10*3/uL Normal 4.4-11.0 [facility] Comment on above: Performed By: #### L 500.2500, L100.0100 ####[facility] [address] [place], [address] Basic Metabolic Profile (BMP )on 01-22-2024 BUN/CRE 22.1 RATIO High 10-20 [facility] Comment on above: Performed By: #### L 100.0100, L500.2500 ####[facility] [address] [place], [address] CA,Total 8.9 mg/dL Normal 8.5-10.1 [facility] Comment on above: Performed By: #### L 100.0100, L500.2500 ####[facility] [address] [place], [address] Chloride [Moles/Vol] 106 mmol/L Normal 98-107 [facility] Comment on above: Performed By: #### L 100.0100, L500.2500 ####[facility] [address] [place], [address] CO2 [Moles/Vol] 25.0 mmol/L Normal 21.0-32.0 [facility] Comment on above: Performed By: #### L 100.0100, L500.2500 ####[facility] [address] [place], [address] Creatinine [Mass/Vol] 0.90 mg/dL Normal 0.55-1.02 [facility] Comment on above: Result Comment: The validity of the calculated GFR GFRAA in patients over70 years has not been determined. Clinical correlation isessential. Performed By: #### L 100.0100, L500.2500 ####[facility] [address] [place], [address] ECRCL 43.57 ml/min Normal [facility] Comment on above: Performed By: #### L 100.0100, L500.2500 ####[facility] [address] [place], [address] EST GFR - AA 76 mL/min Normal >60 [facility] Comment on above: Result Comment: Afri can Portuguese GFR Calc Performed By: #### L 100.0100, L500.2500 ####[facility] [address] [place], [address] GAP 7 Normal 5-15 [facility] Comment on above: Performed By: #### L 100.0100, L500.2500 ####[facility] [address] [place], [address] GFR/1.73 sq M.predicted among non-blacks MDRD (S/P/Bld) [Vol rate/Area] 63 mL/min/{1.73_m2} Normal >60 [facility] Comment on above: Result Comment: Non- GFR Calc Performed By: #### L 100.0100, L500.2500 ####[facility] [address] [place], [address] Glucose [Mass/Vol] 98 mg/dL Normal 74-106 [facility] Comment on above: Performed By: #### L 100.0100, L500.2500 ####[facility] [address] [place], [address] Potassium [Moles/Vol] 3.5 mmol/L Normal 3.5-5.1 [facility] Comment on above: Performed By: #### L 100.0100, L500.2500 ####[facility] [address] [place], [address] Sodium [Moles/Vol] 138 mmol/L Normal 136-145 [facility] Comment on above: Performed By: #### L 100.0100, L500.2500 ####[facility] [address] [place], [address] Urea nitrogen [Mass/Vol] 20 mg/dL High 7-18 [facility] Comment on above: Performed By: #### L 100.0100, L500.2500 ####[facility] [address] [place], [address] CBC W/Diff, Automatedon 09-2 -2023 Absolute Lymph 1.20 X10 3/uL Normal 0.83-4.51 [facility] Comment on above: Performed By: #### L 100.0100, L500.2500 ####[facility] [address] [place], [address] Absolute Neut 5.6 X10 3/uL Normal 2.0-7.7 [facility] Comment on above: Performed By: #### L 100.0100, L500.2500 ####[facility] [address] [place], [address] Basophils/100 WBC (Bld) 0.4 % Normal 0-1 [facility] Comment on above: Performed By: #### L 100.0100, L500.2500 ####[facility] [address] [place], [address] Eosinophils/100 WBC (Bld) 1.5 % Normal 0-5 [facility] Comment on above: Performed By: #### L 100.0100, L500.2500 ####[facility] [address] [place], [address] Erythrocyte distribution width (RBC) [Ratio] 16.4 % High 11.6-14.6 [facility] Comment on above: Performed By: #### L 100.0100, L500.2500 ####[facility] [address] [place], [address] Hematocrit (Bld) [Volume fraction] 26.7 % Low 37-47 [facility] Comment on above: Performed By: #### L 100.0100, L500.2500 ####[facility] [address] [place], [address] Hemoglobin (Bld) [Mass/Vol] 8.5 g/dL Low 12.0-15.0 [facility] Comment on above: Performed By: #### L 100.0100, L500.2500 ####[facility] [address] [place], [address] IG% 0.400 Normal 0.0-0.9 [facility] Comment on above: Result Comment: IG% - Immature Granulocytes (promyelocytes, myelocytes andmetamyelocytes) > 1% indicates that a LEFT SHIFT is Present. Performed By: #### L 100.0100, L500.2500 ####[facility] [address] [place], [address] Lymphocytes/100 WBC (Bld) 15.3 % Low 19-41 [facility] Comment on above: Performed By: #### L 100.0100, L500.2500 ####[facility] [address] [place], [address] MCH (RBC) [Entitic mass] 32.1 pg High 27.0-32.0 [facility] Comment on above: Performed By: #### L 100.0100, L500.2500 ####[facility] [address] [place], [address] MCHC (RBC) [Mass/Vol] 31.8 g/dL Low 32-36 [facility] Comment on above: Performed By: #### L 100.0100, L500.2500 ####[facility] [address] [place], [address] MCV (RBC) [Entitic vol] 100.8 fL High 81-99 [facility] Comment on above: Performed By: #### L 100.0100, L500.2500 ####[facility] [address] [place], [address] Monocytes/100 WBC (Bld) 11.5 % High 0-10 [facility] Comment on above: Performed By: #### L 100.0100, L500.2500 ####[facility] [address] [place], [address] Neutrophils/100 WBC (Bld) 70.9 % High 47-70 [facility] Comment on above: Performed By: #### L 100.0100, L500.2500 ####[facility] [address] [place], [address] Nucleated RBC (Bld) [#/Vol] 0 10*3/uL Normal 0-5 [facility] Comment on above: Performed By: #### L 100.0100, L500.2500 ####[facility] [address] [place], [address] Platelet mean volume (Bld) [Entitic vol] 11.3 fL Normal 6.2-12.0 [facility] Comment on above: Performed By: #### L 100.0100, L500.2500 ####[facility] [address] [place], [address] Platelets (Bld) [#/Vol] 177 10*3/uL Normal 150-450 [facility] Comment on above: Performed By: #### L 100.0100, L500.2500 ####[facility] [address] [place], [address] RBC (Bld) [#/Vol] 2.65 10*6/uL Low 4.2-5.4 [facility] Comment on above: Performed By: #### L 100.0100, L500.2500 ####[facility] [address] [place], [address] RDW SD 60.8 fl High 35.1-43.9 [facility] Comment on above: Performed By: #### L 100.0100, L500.2500 ####[facility] [address] [place], [address] WBC (Bld) [#/Vol] 7.9 10*3/uL Normal 4.4-11.0 [facility] Comment on above: Performed By: #### L 100.0100, L500.2500 ####[facility] [address] [place], [address] Basic Metabolic Profile (BMP )on 01-21-2024 BUN/CRE 18.0 RATIO Normal 10-20 [facility] Comment on above: Performed By: #### L 500.2500, L100.0100 ####[facility] [address] [place], [address] CA,Total 8.6 mg/dL Normal 8.5-10.1 [facility] Comment on above: Performed By: #### L 500.2500, L100.0100 ####[facility] [address] [place], [address] Chloride [Moles/Vol] 105 mmol/L Normal 98-107 [facility] Comment on above: Performed By: #### L 500.2500, L100.0100 ####[facility] [address] [place], [address] CO2 [Moles/Vol] 21.0 mmol/L Normal 21.0-32.0 [facility] Comment on above: Performed By: #### L 500.2500, L100.0100 ####[facility] [address] [place], [address] Creatinine [Mass/Vol] 0.83 mg/dL Normal 0.55-1.02 [facility] Comment on above: Result Comment: The validity of the calculated GFR GFRAA in patients over70 years has not been determined. Clinical correlation isessential. Performed By: #### L 500.2500, L100.0100 ####[facility] [address] [place], [address] ECRCL 47.54 ml/min Normal [facility] Comment on above: Performed By: #### L 500.2500, L100.0100 ####[facility] [address] [place], [address] EST GFR - AA 84 mL/min Normal >60 [facility] Comment on above: Result Comment: Afri can Portuguese GFR Calc Performed By: #### L 500.2500, L100.0100 ####[facility] [address] [place], [address] GAP 8 Normal 5-15 [facility] Comment on above: Performed By: #### L 500.2500, L100.0100 ####[facility] [address] [place], [address] GFR/1.73 sq M.predicted among non-blacks MDRD (S/P/Bld) [Vol rate/Area] 69 mL/min/{1.73_m2} Normal >60 [facility] Comment on above: Result Comment: Non- GFR Calc Performed By: #### L 500.2500, L100.0100 ####[facility] [address] [place], [address] Glucose [Mass/Vol] 108 mg/dL High 74-106 [facility] Comment on above: Result Comment: Fast ing Glucose result from 100 to 125 mg/dLsuggests IMPAIRED HOMEOSTASIS per A.D.A. criteria. Performed By: #### L 500.2500, L100.0100 ####[facility] [address] [place], [address] Potassium [Moles/Vol] 3.7 mmol/L Normal 3.5-5.1 [facility] Comment on above: Performed By: #### L 500.2500, L100.0100 ####[facility] [address] [place], [address] Sodium [Moles/Vol] 134 mmol/L Low 136-145 [facility] Comment on above: Performed By: #### L 500.2500, L100.0100 ####[facility] [address] [place], [address] Urea nitrogen [Mass/Vol] 15 mg/dL Normal 7-18 [facility] Comment on above: Performed By: #### L 500.2500, L100.0100 ####[facility] [address] [place], [address] CBC W/Diff, Automatedon 09-2 Absolute Lymph 1.03 X10 3/uL Normal 0.83-4.51 [facility] Comment on above: Performed By: #### L 500.2500, L100.0100 ####[facility] [address] [place], [address] Absolute Neut 5.9 X10 3/uL Normal 2.0-7.7 [facility] Comment on above: Performed By: #### L 500.2500, L100.0100 ####[facility] [address] [place], [address] Basophils/100 WBC (Bld) 0.2 % Normal 0-1 [facility] Comment on above: Performed By: #### L 500.2500, L100.0100 ####[facility] [address] [place], [address] Eosinophils/100 WBC (Bld) 0.6 % Normal 0-5 [facility] Comment on above: Performed By: #### L 500.2500, L100.0100 ####[facility] [address] [place], [address] Erythrocyte distribution width (RBC) [Ratio] 16.5 % High 11.6-14.6 [facility] Comment on above: Performed By: #### L 500.2500, L100.0100 ####[facility] [address] [place], [address] Hematocrit (Bld) [Volume fraction] 26.4 % Low 37-47 [facility] Comment on above: Performed By: #### L 500.2500, L100.0100 ####[facility] [address] [place], [address] Hemoglobin (Bld) [Mass/Vol] 8.4 g/dL Low 12.0-15.0 [facility] Comment on above: Performed By: #### L 500.2500, L100.0100 ####[facility] [address] [place], [address] IG% 0.600 Normal 0.0-0.9 [facility] Comment on above: Result Comment: IG% - Immature Granulocytes (promyelocytes, myelocytes andmetamyelocytes) > 1% indicates that a LEFT SHIFT is Present. Performed By: #### L 500.2500, L100.0100 ####[facility] [address] [place], [address] Lymphocytes/100 WBC (Bld) 12.8 % Low 19-41 [facility] Comment on above: Performed By: #### L 500.2500, L100.0100 ####[facility] [address] [place], [address] MCH (RBC) [Entitic mass] 31.2 pg Normal 27.0-32.0 [facility] Comment on above: Performed By: #### L 500.2500, L100.0100 ####[facility] [address] [place], [address] MCHC (RBC) [Mass/Vol] 31.8 g/dL Low 32-36 [facility] Comment on above: Performed By: #### L 500.2500, L100.0100 ####[facility] [address] [place], [address] MCV (RBC) [Entitic vol] 98.1 fL Normal 81-99 [facility] Comment on above: Performed By: #### L 500.2500, L100.0100 ####[facility] [address] [place], [address] Monocytes/100 WBC (Bld) 12.2 % High 0-10 [facility] Comment on above: Performed By: #### L 500.2500, L100.0100 ####[facility] [address] [place], [address] Neutrophils/100 WBC (Bld) 73.6 % High 47-70 [facility] Comment on above: Performed By: #### L 500.2500, L100.0100 ####[facility] [address] [place], [address] Nucleated RBC (Bld) [#/Vol] 0.2 10*3/uL Normal 0-5 [facility] Comment on above: Performed By: #### L 500.2500, L100.0100 ####[facility] [address] [place], [address] Platelet mean volume (Bld) [Entitic vol] 10.1 fL Normal 6.2-12.0 [facility] Comment on above: Performed By: #### L 500.2500, L100.0100 ####[facility] [address] [place], [address] Platelets (Bld) [#/Vol] 192 10*3/uL Normal 150-450 [facility] Comment on above: Performed By: #### L 500.2500, L100.0100 ####[facility] [address] [place], [address] RBC (Bld) [#/Vol] 2.69 10*6/uL Low 4.2-5.4 [facility] Comment on above: Performed By: #### L 500.2500, L100.0100 ####[facility] [address] [place], [address] RDW SD 59.2 fl High 35.1-43.9 [facility] Comment on above: Performed By: #### L 500.2500, L100.0100 ####[facility] [address] [place], [address] WBC (Bld) [#/Vol] 8.0 10*3/uL Normal 4.4-11.0 [facility] Comment on above: Performed By: #### L 500.2500, L100.0100 ####[facility] [address] [place], [address] Partial Thromboplast Timeon 01-21-2024 aPTT Coag (Bld) [Time] 75.9 s High 24.1-36.[address] [facility] Comment on above: Performed By: #### L 300.4310 ####[facility] [address] [place], [address] 12 Lead EKGon 01-20-2024 12 Lead EKG Normal [facility] Basic Metabolic Profile (BMP )on 01-20-2024 BUN/CRE 18.1 RATIO Normal 02-18 [facility] Comment on above: Performed By: #### L 100.0100, L500.2500 ####[facility] [address] [place], [address] CA,Total 9.0 mg/dL Normal 8.5-10.1 [facility] Comment on above: Performed By: #### L 100.0100, L500.2500 ####[facility] [address] [place], [address] Chloride [Moles/Vol] 107 mmol/L Normal 98-107 [facility] Comment on above: Performed By: #### L 100.0100, L500.2500 ####[facility] [address] [place], [address] CO2 [Moles/Vol] 22.0 mmol/L Normal 21.0-32.0 [facility] Comment on above: Performed By: #### L 100.0100, L500.2500 ####[facility] [address] [place], [address] Creatinine [Mass/Vol] 0.88 mg/dL Normal 0.55-1.02 [facility] Comment on above: Result Comment: The validity of the calculated GFR GFRAA in patients over70 years has not been determined. Clinical correlation isessential. Performed By: #### L 100.0100, L500.2500 ####[facility] [address] [place], [address] ECRCL 44.08 ml/min Normal [facility] Comment on above: Performed By: #### L 100.0100, L500.2500 ####[facility] [address] [place], [address] EST GFR - AA 78 mL/min Normal >60 [facility] Comment on above: Result Comment: Afri can Portuguese GFR Calc Performed By: #### L 100.0100, L500.2500 ####[facility] [address] [place], [address] GAP 8 Normal 5-15 [facility] Comment on above: Performed By: #### L 100.0100, L500.2500 ####[facility] [address] [place], [address] GFR/1.73 sq M.predicted among non-blacks MDRD (S/P/Bld) [Vol rate/Area] 65 mL/min/{1.73_m2} Normal >60 [facility] Comment on above: Result Comment: Non- GFR Calc Performed By: #### L 100.0100, L500.2500 ####[facility] [address] [place], [address] Glucose [Mass/Vol] 166 mg/dL High 74-106 [facility] Comment on above: Result Comment: Fast ing Glucose result greater than or equal to 126 mg/dLsuggests DIABETES MELLITUS per A.D.A. criteria. Performed By: #### L 100.0100, L500.2500 ####[facility] [address] [place], [address] Potassium [Moles/Vol] 4.0 mmol/L Normal 3.5-5.1 [facility] Comment on above: Performed By: #### L 100.0100, L500.2500 ####[facility] [address] [place], [address] Sodium [Moles/Vol] 137 mmol/L Normal 136-145 [facility] Comment on above: Performed By: #### L 100.0100, L500.2500 ####[facility] [address] [place], [address] Urea nitrogen [Mass/Vol] 16 mg/dL Normal 7-18 [facility] Comment on above: Performed By: #### L 100.0100, L500.2500 ####[facility] [address] [place], [address] CBC W/Diff, Automatedon 09-2 0-2023 Absolute Lymph 0.87 X10 3/uL Normal 0.83-4.51 [facility] Comment on above: Performed By: #### L 100.0100, L500.2500 ####[facility] [address] [place], [address] Absolute Neut 6.6 X10 3/uL Normal 2.0-7.7 [facility] Comment on above: Performed By: #### L 100.0100, L500.2500 ####[facility] [address] [place], [address] Basophils/100 WBC (Bld) 0.4 % Normal 0-1 [facility] Comment on above: Performed By: #### L 100.0100, L500.2500 ####[facility] [address] [place], [address] Eosinophils/100 WBC (Bld) 0.1 % Normal 0-5 [facility] Comment on above: Performed By: #### L 100.0100, L500.2500 ####[facility] [address] [place], [address] Erythrocyte distribution width (RBC) [Ratio] 16.4 % High 11.6-14.6 [facility] Comment on above: Performed By: #### L 100.0100, L500.2500 ####[facility] [address] [place], [address] Hematocrit (Bld) [Volume fraction] 30.5 % Low 37-47 [facility] Comment on above: Performed By: #### L 100.0100, L500.2500 ####[facility] [address] [place], [address] Hemoglobin (Bld) [Mass/Vol] 9.5 g/dL Low 12.0-15.0 [facility] Comment on above: Performed By: #### L 100.0100, L500.2500 ####[facility] [address] [place], [address] IG% 0.600 Normal 0.0-0.9 [facility] Comment on above: Result Comment: IG% - Immature Granulocytes (promyelocytes, myelocytes andmetamyelocytes) > 1% indicates that a LEFT SHIFT is Present. Performed By: #### L 100.0100, L500.2500 ####[facility] [address] [place], [address] Lymphocytes/100 WBC (Bld) 10.3 % Low 19-41 [facility] Comment on above: Performed By: #### L 100.0100, L500.2500 ####[facility] [address] [place], [address] MCH (RBC) [Entitic mass] 31.1 pg Normal 27.0-32.0 [facility] Comment on above: Performed By: #### L 100.0100, L500.2500 ####[facility] [address] [place], [address] MCHC (RBC) [Mass/Vol] 31.1 g/dL Low 32-36 [facility] Comment on above: Performed By: #### L 100.0100, L500.2500 ####[facility] [address] [place], [address] MCV (RBC) [Entitic vol] 100.0 fL High 81-99 [facility] Comment on above: Performed By: #### L 100.0100, L500.2500 ####[facility] [address] [place], [address] Monocytes/100 WBC (Bld) 10.6 % High 0-10 [facility] Comment on above: Performed By: #### L 100.0100, L500.2500 ####[facility] [address] [place], [address] Neutrophils/100 WBC (Bld) 78.0 % High 47-70 [facility] Comment on above: Performed By: #### L 100.0100, L500.2500 ####[facility] [address] [place], [address] Nucleated RBC (Bld) [#/Vol] 0 10*3/uL Normal 0-5 [facility] Comment on above: Performed By: #### L 100.0100, L500.2500 ####[facility] [address] [place], [address] Platelet mean volume (Bld) [Entitic vol] 10.7 fL Normal 6.2-12.0 [facility] Comment on above: Performed By: #### L 100.0100, L500.2500 ####[facility] [address] [place], [address] Platelets (Bld) [#/Vol] 235 10*3/uL Normal 150-450 [facility] Comment on above: Performed By: #### L 100.0100, L500.2500 ####[facility] [address] [place], [address] RBC (Bld) [#/Vol] 3.05 10*6/uL Low 4.2-5.4 [facility] Comment on above: Performed By: #### L 100.0100, L500.2500 ####[facility] [address] [place], [address] RDW SD 60.1 fl High 35.1-43.9 [facility] Comment on above: Performed By: #### L 100.0100, L500.2500 ####[facility] [address] [place], [address] WBC (Bld) [#/Vol] 8.4 10*3/uL Normal 4.4-11.0 [facility] Comment on above: Performed By: #### L 100.0100, L500.2500 ####[facility] [address] [place], [address] Partial Thromboplast Timeon 01-20-2024 aPTT Coag (Bld) [Time] 146.4 s Invalid Interpretation Code 24.1-36.2 [facility] Comment on above: Result Comment: CRIT ICAL VALUE CALLED TO SHERRY MARADIAGA01/20/[id number] Evita Garibay.RESULTS READ BACK BY SAME. Performed By: #### L 300.4310 ####[facility] [address] [place], [address] aPTT Coag (Bld) [Time] 51.7 s High 24.1-36.[address] [facility] Comment on above: Performed By: #### L 300.4310 ####[facility] [address] [place], [address] ACT Activated Clotting Timeo n 01-19-2024 ACTk CLOT TIME 305 sec High 74-137 [facility] Comment on above: Performed By: #### L 9100.0100 ####[facility] [address] [place], [address] BRCon 01-19-2024 RC Normal [facility] Comment on above: Result Comment: [id number] OP RC [id number] OP RC READY Performed By: #### B RC, BTS ####[facility] [address] [place], [address] Basic Metabolic Profile (BMP )on 01-19-2024 BUN/CRE 20.4 RATIO High 10-20 [facility] Comment on above: Performed By: #### L 500.2500, L100.0100 ####[facility] [address] [place], [address] CA,Total 9.2 mg/dL Normal 8.5-10.1 [facility] Comment on above: Performed By: #### L 500.2500, L100.0100 ####[facility] [address] [place], [address] Chloride [Moles/Vol] 106 mmol/L Normal 98-107 [facility] Comment on above: Performed By: #### L 500.2500, L100.0100 ####[facility] [address] [place], [address] CO2 [Moles/Vol] 23.0 mmol/L Normal 21.0-32.0 [facility] Comment on above: Performed By: #### L 500.2500, L100.0100 ####[facility] [address] [place], [address] Creatinine [Mass/Vol] 1.03 mg/dL High 0.55-1.02 [facility] Comment on above: Result Comment: The validity of the calculated GFR GFRAA in patients over70 years has not been determined. Clinical correlation isessential. Performed By: #### L 500.2500, L100.0100 ####[facility] [address] [place], [address] ECRCL 37.07 ml/min Normal [facility] Comment on above: Performed By: #### L 500.2500, L100.0100 ####[facility] [address] [place], [address] EST GFR - AA 66 mL/min Normal >60 [facility] Comment on above: Result Comment: Afri can Portuguese GFR Calc Performed By: #### L 500.2500, L100.0100 ####[facility] [address] [place], [address] GAP 7 Normal 5-15 [facility] Comment on above: Performed By: #### L 500.2500, L100.0100 ####[facility] [address] [place], [address] GFR/1.73 sq M.predicted among non-blacks MDRD (S/P/Bld) [Vol rate/Area] 54 mL/min/{1.73_m2} Low >60 [facility] Comment on above: Result Comment: Non- GFR Calc Performed By: #### L 500.2500, L100.0100 ####[facility] [address] [place], [address] Glucose [Mass/Vol] 115 mg/dL High 74-106 [facility] Comment on above: Result Comment: Fast ing Glucose result from 100 to 125 mg/dLsuggests IMPAIRED HOMEOSTASIS per A.D.A. criteria. Performed By: #### L 500.2500, L100.0100 ####[facility] [address] [place], [address] Potassium [Moles/Vol] 3.7 mmol/L Normal 3.5-5.1 [facility] Comment on above: Performed By: #### L 500.2500, L100.0100 ####[facility] [address] [place], [address] Sodium [Moles/Vol] 136 mmol/L Normal 136-145 [facility] Comment on above: Performed By: #### L 500.2500, L100.0100 ####[facility] [address] [place], [address] Urea nitrogen [Mass/Vol] 21 mg/dL High 7-18 [facility] Comment on above: Performed By: #### L 500.2500, L100.0100 ####[facility] [address] [place], [address] CBC W/Diff, Automatedon 12-31 Absolute Lymph 1.26 X10 3/uL Normal 0.83-4.51 [facility] Comment on above: Performed By: #### L 500.2500, L100.0100 ####[facility] [address] [place], [address] Absolute Neut 4.4 X10 3/uL Normal 2.0-7.7 [facility] Comment on above: Performed By: #### L 500.2500, L100.0100 ####[facility] [address] [place], [address] Basophils/100 WBC (Bld) 0.9 % Normal 0-1 [facility] Comment on above: Performed By: #### L 500.2500, L100.0100 ####[facility] [address] [place], [address] Eosinophils/100 WBC (Bld) 1.7 % Normal 0-5 [facility] Comment on above: Performed By: #### L 500.2500, L100.0100 ####[facility] [address] [place], [address] Erythrocyte distribution width (RBC) [Ratio] 16.3 % High 11.6-14.6 [facility] Comment on above: Performed By: #### L 500.2500, L100.0100 ####[facility] [address] [place], [address] Hematocrit (Bld) [Volume fraction] 33.4 % Low 37-47 [facility] Comment on above: Performed By: #### L 500.2500, L100.0100 ####[facility] [address] [place], [address] Hemoglobin (Bld) [Mass/Vol] 10.7 g/dL Low 12.0-15.0 [facility] Comment on above: Performed By: #### L 500.2500, L100.0100 ####[facility] [address] [place], [address] IG% 0.300 Normal 0.0-0.9 [facility] Comment on above: Result Comment: IG% - Immature Granulocytes (promyelocytes, myelocytes andmetamyelocytes) > 1% indicates that a LEFT SHIFT is Present. Performed By: #### L 500.2500, L100.0100 ####[facility] [address] [place], [address] Lymphocytes/100 WBC (Bld) 19.3 % Normal 19-41 [facility] Comment on above: Performed By: #### L 500.2500, L100.0100 ####[facility] [address] [place], [address] MCH (RBC) [Entitic mass] 31.9 pg Normal 27.0-32.0 [facility] Comment on above: Performed By: #### L 500.2500, L100.0100 ####[facility] [address] [place], [address] MCHC (RBC) [Mass/Vol] 32.0 g/dL Normal 32-36 [facility] Comment on above: Performed By: #### L 500.2500, L100.0100 ####[facility] [address] [place], [address] MCV (RBC) [Entitic vol] 99.7 fL High 81-99 [facility] Comment on above: Performed By: #### L 500.2500, L100.0100 ####[facility] [address] [place], [address] Monocytes/100 WBC (Bld) 10.9 % High 0-10 [facility] Comment on above: Performed By: #### L 500.2500, L100.0100 ####[facility] [address] [place], [address] Neutrophils/100 WBC (Bld) 66.9 % Normal 47-70 [facility] Comment on above: Performed By: #### L 500.2500, L100.0100 ####[facility] [address] [place], [address] Nucleated RBC (Bld) [#/Vol] 0 10*3/uL Normal 0-5 [facility] Comment on above: Performed By: #### L 500.2500, L100.0100 ####[facility] [address] [place], [address] Platelet mean volume (Bld) [Entitic vol] 11.0 fL Normal 6.2-12.0 [facility] Comment on above: Performed By: #### L 500.2500, L100.0100 ####[facility] [address] [place], [address] Platelets (Bld) [#/Vol] 269 10*3/uL Normal 150-450 [facility] Comment on above: Performed By: #### L 500.2500, L100.0100 ####[facility] [address] [place], [address] RBC (Bld) [#/Vol] 3.35 10*6/uL Low 4.2-5.4 [facility] Comment on above: Performed By: #### L 500.2500, L100.0100 ####[facility] [address] [place], [address] RDW SD 59.8 fl High 35.1-43.9 [facility] Comment on above: Performed By: #### L 500.2500, L100.0100 ####[facility] [address] [place], [address] WBC (Bld) [#/Vol] 6.5 10*3/uL Normal 4.4-11.0 [facility] Comment on above: Performed By: #### L 500.2500, L100.0100 ####[facility] [address] [place], [address] MR/POSTOP.ANEon 01-19-2024 MR/POSTOP.ANE Normal [facility] Operative Reporton Operative Report Normal [facility] Operative Report Normal [facility] Partial Thromboplast Timeon 01-19-2024 aPTT Coag (Bld) [Time] 51.9 s High 24.1-36.[address] [facility] Comment on above: Performed By: #### L 300.4310 ####[facility] [address] [place], [address] aPTT Coag (Bld) [Time] 83.7 s High 24.1-36.[address] [facility] Comment on above: Performed By: #### L 300.4310 ####[facility] [address] [place], [address] aPTT Coag (Bld) [Time] 83.8 s High 24.1-36.[address] [facility] Comment on above: Performed By: #### L 300.4310 ####[facility] [address] [place], [address] Prothrombin Time w/INRon INR Coag (PPP) [Relative time] 2.6 {INR} Normal [facility] Comment on above: Performed By: #### L 300.3900 ####[facility] [address] [place], [address] PT Coag (PPP) [Time] 27.9 s High 11.7-14.9 [facility] Comment on above: Performed By: #### L 300.3900 ####[facility] [address] [place], [address] Type AND Screenon 01-19-2024 ABO and Rh group Nom (Bld) Blood group A Rh(D) positive Normal [facility] Comment on above: Order Comment: CMV N EG? NReason for Ordering Blood: AcuteAre the blood/blood products to be transfused? NIs the patient having/had surgery? Lyly Walter Performed By: #### B RC, BTS ####[facility] [address] [place], [address] 12 Lead EKGon 01-18-2024 12 Lead EKG Normal [facility] Basic Metabolic Profile (BMP )on 01-18-2024 BUN/CRE 18.4 RATIO Normal 10-20 [facility] Comment on above: Performed By: #### L 100.0100, L500.2500, L300.3900 ####[facility] [address] [place], [address] CA,Total 10.3 mg/dL High 8.5-10.1 [facility] Comment on above: Performed By: #### L 100.0100, L500.2500, L300.3900 ####[facility] [address] [place], [address] Chloride [Moles/Vol] 105 mmol/L Normal 98-107 [facility] Comment on above: Performed By: #### L 100.0100, L500.2500, L300.3900 ####[facility] [address] [place], [address] CO2 [Moles/Vol] 22.0 mmol/L Normal 21.0-32.0 [facility] Comment on above: Performed By: #### L 100.0100, L500.2500, L300.3900 ####[facility] [address] [place], [address] Creatinine [Mass/Vol] 1.03 mg/dL High 0.55-1.02 [facility] Comment on above: Result Comment: The validity of the calculated GFR GFRAA in patients over70 years has not been determined. Clinical correlation isessential. Performed By: #### L 100.0100, L500.2500, L300.3900 ####[facility] [address] [place], [address] ECRCL 37.69 ml/min Normal [facility] Comment on above: Performed By: #### L 100.0100, L500.2500, L300.3900 ####[facility] [address] [place], [address] EST GFR - AA 66 mL/min Normal >60 [facility] Comment on above: Result Comment: Afri can Portuguese GFR Calc Performed By: #### L 100.0100, L500.2500, L300.3900 ####[facility] [address] [place], [address] GAP 12 Normal 5-15 [facility] Comment on above: Performed By: #### L 100.0100, L500.2500, L300.3900 ####[facility] [address] [place], [address] GFR/1.73 sq M.predicted among non-blacks MDRD (S/P/Bld) [Vol rate/Area] 54 mL/min/{1.73_m2} Low >60 [facility] Comment on above: Result Comment: Non- GFR Calc Performed By: #### L 100.0100, L500.2500, L300.3900 ####[facility] [address] [place], [address] Glucose [Mass/Vol] 169 mg/dL High 74-106 [facility] Comment on above: Result Comment: Fast ing Glucose result greater than or equal to 126 mg/dLsuggests DIABETES MELLITUS per A.D.A. criteria. Performed By: #### L 100.0100, L500.2500, L300.3900 ####[facility] [address] [place], [address] Potassium [Moles/Vol] 3.5 mmol/L Normal 3.5-5.1 [facility] Comment on above: Performed By: #### L 100.0100, L500.2500, L300.3900 ####[facility] [address] [place], [address] Sodium [Moles/Vol] 139 mmol/L Normal 136-145 [facility] Comment on above: Performed By: #### L 100.0100, L500.2500, L300.3900 ####[facility] [address] [place], [address] Urea nitrogen [Mass/Vol] 19 mg/dL High 7-18 [facility] Comment on above: Performed By: #### L 100.0100, L500.2500, L300.3900 ####[facility] [address] [place], [address] CBC W/Diff, Automatedon 12-31 Absolute Lymph 1.44 X10 3/uL Normal 0.83-4.51 [facility] Comment on above: Performed By: #### L 100.0100, L500.2500, L300.3900 ####[facility] [address] [place], [address] Absolute Neut 6.6 X10 3/uL Normal 2.0-7.7 [facility] Comment on above: Performed By: #### L 100.0100, L500.2500, L300.3900 ####[facility] [address] [place], [address] Basophils/100 WBC (Bld) 0.4 % Normal 0-1 [facility] Comment on above: Performed By: #### L 100.0100, L500.2500, L300.3900 ####[facility] [address] [place], [address] Eosinophils/100 WBC (Bld) 1.1 % Normal 0-5 [facility] Comment on above: Performed By: #### L 100.0100, L500.2500, L300.3900 ####[facility] [address] [place], [address] Erythrocyte distribution width (RBC) [Ratio] 16.1 % High 11.6-14.6 [facility] Comment on above: Performed By: #### L 100.0100, L500.2500, L300.3900 ####[facility] [address] [place], [address] Hematocrit (Bld) [Volume fraction] 39.0 % Normal 37-47 [facility] Comment on above: Performed By: #### L 100.0100, L500.2500, L300.3900 ####[facility] [address] [place], [address] Hemoglobin (Bld) [Mass/Vol] 12.3 g/dL Normal 12.0-15.0 [facility] Comment on above: Performed By: #### L 100.0100, L500.2500, L300.3900 ####[facility] [address] [place], [address] IG% 0.200 Normal 0.0-0.9 [facility] Comment on above: Result Comment: IG% - Immature Granulocytes (promyelocytes, myelocytes andmetamyelocytes) > 1% indicates that a LEFT SHIFT is Present. Performed By: #### L 100.0100, L500.2500, L300.3900 ####[facility] [address] [place], [address] Lymphocytes/100 WBC (Bld) 16.1 % Low 19-41 [facility] Comment on above: Performed By: #### L 100.0100, L500.2500, L300.3900 ####[facility] [address] [place], [address] MCH (RBC) [Entitic mass] 31.1 pg Normal 27.0-32.0 [facility] Comment on above: Performed By: #### L 100.0100, L500.2500, L300.3900 ####[facility] [address] [place], [address] MCHC (RBC) [Mass/Vol] 31.5 g/dL Low 32-36 [facility] Comment on above: Performed By: #### L 100.0100, L500.2500, L300.3900 ####[facility] [address] [place], [address] MCV (RBC) [Entitic vol] 98.5 fL Normal 81-99 [facility] Comment on above: Performed By: #### L 100.0100, L500.2500, L300.3900 ####[facility] [address] [place], [address] Monocytes/100 WBC (Bld) 8.5 % Normal 0-10 [facility] Comment on above: Performed By: #### L 100.0100, L500.2500, L300.3900 ####[facility] [address] [place], [address] Neutrophils/100 WBC (Bld) 73.7 % High 47-70 [facility] Comment on above: Performed By: #### L 100.0100, L500.2500, L300.3900 ####[facility] [address] [place], [address] Nucleated RBC (Bld) [#/Vol] 0 10*3/uL Normal 0-5 [facility] Comment on above: Performed By: #### L 100.0100, L500.2500, L300.3900 ####[facility] [address] [place], [address] Platelet mean volume (Bld) [Entitic vol] 10.5 fL Normal 6.2-12.0 [facility] Comment on above: Performed By: #### L 100.0100, L500.2500, L300.3900 ####[facility] [address] [place], [address] Platelets (Bld) [#/Vol] 282 10*3/uL Normal 150-450 [facility] Comment on above: Performed By: #### L 100.0100, L500.2500, L300.3900 ####[facility] [address] [place], [address] RBC (Bld) [#/Vol] 3.96 10*6/uL Low 4.2-5.4 [facility] Comment on above: Performed By: #### L 100.0100, L500.2500, L300.3900 ####[facility] [address] [place], [address] RDW SD 59.4 fl High 35.1-43.9 [facility] Comment on above: Performed By: #### L 100.0100, L500.2500, L300.3900 ####[facility] [address] [place], [address] WBC (Bld) [#/Vol] 9.0 10*3/uL Normal 4.4-11.0 [facility] Comment on above: Performed By: #### L 100.0100, L500.2500, L300.3900 ####[facility] [address] [place], [address] CTA Abd w/Runoff W/WO Contra ston 01-18-2024 CTA Abd w/Runoff W/WO Contrast Normal [facility] Consultation - Surgicalon Consultation - Surgical Normal [facility] Emergency Department Summary on 01-18-2024 Emergency Department Summary Normal [facility] H AND P Exam - Hospitaliston 01-18-2024 H&P Exam - Hospitalist Normal [facility] Partial Thromboplast Timeon 01-18-2024 aPTT Coag (Bld) [Time] s Invalid Interpretation Code 24.1-36.2 [facility] Comment on above: Order Comment: Comme nts: Heparin gtt Result Comment: CRIT ICAL VALUE CALLED TO [id number] Annel Holder.RESULTS READ BACK BY SAME. Performed By: #### L 300.4310 ####[facility] [address] [place], [address] aPTT Coag (Bld) [Time] 62.2 s High 24.1-36.[address] [facility] Comment on above: Performed By: #### L 300.4310 ####[facility] [address] [place], [address] Prothrombin Time w/INRon INR Coag (PPP) [Relative time] 2.9 {INR} Normal [facility] Comment on above: Performed By: #### L 100.0100, L500.2500, L300.3900 ####[facility] [address] [place], [address] PT Coag (PPP) [Time] 30.1 s High 11.7-14.9 [facility] Comment on above: Performed By: #### L 100.0100, L500.2500, L300.3900 ####[facility] [address] [place], [address] CNPTOUTREACHon 01-14-2024 CNPTOUTREACH Normal [facility] Basic Metabolic Profile (BMP )on 01-13-2024 BUN/CRE 20.4 RATIO High 10-20 [facility] Comment on above: Performed By: #### L 101.9900, L500.2500, L300.3900, L501.6710, L100.0100 ####[facility] [address] [place], [address] CA,Total 9.9 mg/dL Normal 8.5-10.1 [facility] Comment on above: Performed By: #### L 101.9900, L500.2500, L300.3900, L501.6710, L100.0100 ####[facility] [address] [place], [address] Chloride [Moles/Vol] 106 mmol/L Normal 98-107 [facility] Comment on above: Performed By: #### L 101.9900, L500.2500, L300.3900, L501.6710, L100.0100 ####[facility] [address] [place], [address] CO2 [Moles/Vol] 26.0 mmol/L Normal 21.0-32.0 [facility] Comment on above: Performed By: #### L 101.9900, L500.2500, L300.3900, L501.6710, L100.0100 ####[facility] [address] [place], [address] Creatinine [Mass/Vol] 0.98 mg/dL Normal 0.55-1.02 [facility] Comment on above: Result Comment: The validity of the calculated GFR GFRAA in patients over70 years has not been determined. Clinical correlation isessential. Performed By: #### L 101.9900, L500.2500, L300.3900, L501.6710, L100.0100 ####[facility] [address] [place], [address] ECRCL 39.73 ml/min Normal [facility] Comment on above: Performed By: #### L 101.9900, L500.2500, L300.3900, L501.6710, L100.0100 ####[facility] [address] [place], [address] EST GFR - AA 70 mL/min Normal >60 [facility] Comment on above: Result Comment: Afri can Portuguese GFR Calc Performed By: #### L 101.9900, L500.2500, L300.3900, L501.6710, L100.0100 ####[facility] [address] [place], [address] GAP 6 Normal 5-15 [facility] Comment on above: Performed By: #### L 101.9900, L500.2500, L300.3900, L501.6710, L100.0100 ####[facility] [address] [place], [address] GFR/1.73 sq M.predicted among non-blacks MDRD (S/P/Bld) [Vol rate/Area] 58 mL/min/{1.73_m2} Low >60 [facility] Comment on above: Result Comment: Non- GFR Calc Performed By: #### L 101.9900, L500.2500, L300.3900, L501.6710, L100.0100 ####[facility] [address] [place], [address] Glucose [Mass/Vol] 130 mg/dL High 74-106 [facility] Comment on above: Result Comment: Fast ing Glucose result greater than or equal to 126 mg/dLsuggests DIABETES MELLITUS per A.D.A. criteria. Performed By: #### L 101.9900, L500.2500, L300.3900, L501.6710, L100.0100 ####[facility] [address] [place], [address] Potassium [Moles/Vol] 3.6 mmol/L Normal 3.5-5.1 [facility] Comment on above: Performed By: #### L 101.9900, L500.2500, L300.3900, L501.6710, L100.0100 ####[facility] [address] [place], [address] Sodium [Moles/Vol] 138 mmol/L Normal 136-145 [facility] Comment on above: Performed By: #### L 101.9900, L500.2500, L300.3900, L501.6710, L100.0100 ####[facility] [address] [place], [address] Urea nitrogen [Mass/Vol] 20 mg/dL High 7-18 [facility] Comment on above: Performed By: #### L 101.9900, L500.2500, L300.3900, L501.6710, L100.0100 ####[facility] [address] [place], [address] CBC W/Diff, Automatedon 12-31 Absolute Lymph 1.72 X10 3/uL Normal 0.83-4.51 [facility] Comment on above: Performed By: #### L 101.9900, L500.2500, L300.3900, L501.6710, L100.0100 ####[facility] [address] [place], [address] Absolute Neut 4.4 X10 3/uL Normal 2.0-7.7 [facility] Comment on above: Performed By: #### L 101.9900, L500.2500, L300.3900, L501.6710, L100.0100 ####[facility] [address] [place], [address] Basophils/100 WBC (Bld) 0.9 % Normal 0-1 [facility] Comment on above: Performed By: #### L 101.9900, L500.2500, L300.3900, L501.6710, L100.0100 ####[facility] [address] [place], [address] Eosinophils/100 WBC (Bld) 2.9 % Normal 0-5 [facility] Comment on above: Performed By: #### L 101.9900, L500.2500, L300.3900, L501.6710, L100.0100 ####[facility] [address] [place], [address] Erythrocyte distribution width (RBC) [Ratio] 16.4 % High 11.6-14.6 [facility] Comment on above: Performed By: #### L 101.9900, L500.2500, L300.3900, L501.6710, L100.0100 ####[facility] [address] [place], [address] Hematocrit (Bld) [Volume fraction] 36.9 % Low 37-47 [facility] Comment on above: Performed By: #### L 101.9900, L500.2500, L300.3900, L501.6710, L100.0100 ####[facility] [address] [place], [address] Hemoglobin (Bld) [Mass/Vol] 11.4 g/dL Low 12.0-15.0 [facility] Comment on above: Performed By: #### L 101.9900, L500.2500, L300.3900, L501.6710, L100.0100 ####[facility] [address] [place], [address] IG% 0.300 Normal 0.0-0.9 [facility] Comment on above: Result Comment: IG% - Immature Granulocytes (promyelocytes, myelocytes andmetamyelocytes) > 1% indicates that a LEFT SHIFT is Present. Performed By: #### L 101.9900, L500.2500, L300.3900, L501.6710, L100.0100 ####[facility] [address] [place], [address] Lymphocytes/100 WBC (Bld) 24.6 % Normal 19-41 [facility] Comment on above: Performed By: #### L 101.9900, L500.2500, L300.3900, L501.6710, L100.0100 ####[facility] [address] [place], [address] MCH (RBC) [Entitic mass] 30.9 pg Normal 27.0-32.0 [facility] Comment on above: Performed By: #### L 101.9900, L500.2500, L300.3900, L501.6710, L100.0100 ####[facility] [address] [place], [address] MCHC (RBC) [Mass/Vol] 30.9 g/dL Low 32-36 [facility] Comment on above: Performed By: #### L 101.9900, L500.2500, L300.3900, L501.6710, L100.0100 ####[facility] [address] [place], [address] MCV (RBC) [Entitic vol] 100.0 fL High 81-99 [facility] Comment on above: Performed By: #### L 101.9900, L500.2500, L300.3900, L501.6710, L100.0100 ####[facility] [address] [place], [address] Monocytes/100 WBC (Bld) 8.7 % Normal 0-10 [facility] Comment on above: Performed By: #### L 101.9900, L500.2500, L300.3900, L501.6710, L100.0100 ####[facility] [address] [place], [address] Neutrophils/100 WBC (Bld) 62.6 % Normal 47-70 [facility] Comment on above: Performed By: #### L 101.9900, L500.2500, L300.3900, L501.6710, L100.0100 ####[facility] [address] [place], [address] Nucleated RBC (Bld) [#/Vol] 0.4 10*3/uL Normal 0-5 [facility] Comment on above: Performed By: #### L 101.9900, L500.2500, L300.3900, L501.6710, L100.0100 ####[facility] [address] [place], [address] Platelet mean volume (Bld) [Entitic vol] 11.4 fL Normal 6.2-12.0 [facility] Comment on above: Performed By: #### L 101.9900, L500.2500, L300.3900, L501.6710, L100.0100 ####[facility] [address] [place], [address] Platelets (Bld) [#/Vol] 294 10*3/uL Normal 150-450 [facility] Comment on above: Performed By: #### L 101.9900, L500.2500, L300.3900, L501.6710, L100.0100 ####[facility] [address] [place], [address] RBC (Bld) [#/Vol] 3.69 10*6/uL Low 4.2-5.4 [facility] Comment on above: Performed By: #### L 101.9900, L500.2500, L300.3900, L501.6710, L100.0100 ####[facility] [address] [place], [address] RDW SD 59.6 fl High 35.1-43.9 [facility] Comment on above: Performed By: #### L 101.9900, L500.2500, L300.3900, L501.6710, L100.0100 ####[facility] [address] [place], [address] WBC (Bld) [#/Vol] 7.0 10*3/uL Normal 4.4-11.0 [facility] Comment on above: Performed By: #### L 101.9900, L500.2500, L300.3900, L501.6710, L100.0100 ####[facility] [address] [place], [address] CNOVon 01-13-2024 [facility] 01-13-2024 C-REACTIVE PROT 4.74 mg/L High 0.0-3.0 [facility] Comment on above: Result Comment: C-Re active Protein (CRP) provides useful information for thediagnosis, therapy and monitoring of inflammatory processesand associated diseases. For the evaluation of Relative Riskfor Cardiovascular Disease, a High Sensitivity CRP (HSCRP)should be ordered. Performed By: #### L 101.9900, L500.2500, L300.3900, L501.6710, L100.0100 ####[facility] [address] [place], [address] Emergency Department Summary on 01-13-2024 Emergency Department Summary Normal [facility] Erythrocyte Sed Rateon 01-12 SED RATE 8 mm/hr Normal 0-30 [facility] Comment on above: Performed By: #### L 101.9900, L500.2500, L300.3900, L501.6710, L100.0100 ####[facility] [address] [place], [address] Foot min 3 Viewson 4 Foot min 3 Views Normal [facility] Prothrombin Time w/INRon INR Coag (PPP) [Relative time] 2.6 {INR} Normal [facility] Comment on above: Performed By: #### L 101.9900, L500.2500, L300.3900, L501.6710, L100.0100 ####[facility] [address] [place], [address] PT Coag (PPP) [Time] 27.5 s High 11.7-14.9 [facility] Comment on above: Performed By: #### L 101.9900, L500.2500, L300.3900, L501.6710, L100.0100 ####[facility] [address] [place], [address] Venous Duplex US, Unilateral on 01-13-2024 Venous Duplex US, Unilateral Normal [facility] CNOVon 01-11-2024 CNOV Normal [facility] CNPTOUTREACHon 01-06-2024 CNPTOUTREACH Normal [facility] Prothrombin Time w/INRon INR Normal [facility] Comment on above: Result Comment: Canc elled via OM: Order cancelled - Patient discharged Performed By: #### L 300.3900 ####[facility] [address] [place], [address] PROTIME Normal 11.7-14.9 [facility] Comment on above: Result Comment: Canc elled via OM: Order cancelled - Patient discharged Performed By: #### L 300.3900 ####[facility] [address] [place], [address] Basic Metabolic Profile (BMP )on 01-04-2024 BUN Normal 7-18 [facility] Comment on above: Result Comment: Canc elled via OM: Order cancelled - Patient discharged Performed By: #### L 100.0100, L500.2500, L300.3900 ####[facility] [address] [place], [address] BUN/CRE Normal 10-20 [facility] Comment on above: Result Comment: Canc elled via OM: Order cancelled - Patient discharged Performed By: #### L 100.0100, L500.2500, L300.3900 ####[facility] [address] [place], [address] CA,Total Normal 8.5-10.1 [facility] Comment on above: Result Comment: Canc elled via OM: Order cancelled - Patient discharged Performed By: #### L 100.0100, L500.2500, L300.3900 ####[facility] [address] [place], [address] CL Normal 98-107 [facility] Comment on above: Result Comment: Canc elled via OM: Order cancelled - Patient discharged Performed By: #### L 100.0100, L500.2500, L300.3900 ####[facility] [address] [place], [address] CO2 Normal 21.0-32.0 [facility] Comment on above: Result Comment: Canc elled via OM: Order cancelled - Patient discharged Performed By: #### L 100.0100, L500.2500, L300.3900 ####[facility] [address] [place], [address] CREAT,SERUM Normal 0.55-1.02 [facility] Comment on above: Result Comment: Canc elled via OM: Order cancelled - Patient discharged Performed By: #### L 100.0100, L500.2500, L300.3900 ####[facility] [address] [place], [address] EST GFR Normal >60 [facility] Comment on above: Result Comment: Canc elled via OM: Order cancelled - Patient discharged Performed By: #### L 100.0100, L500.2500, L300.3900 ####[facility] [address] [place], [address] EST GFR - AA Normal >60 [facility] Comment on above: Result Comment: Canc elled via OM: Order cancelled - Patient discharged Performed By: #### L 100.0100, L500.2500, L300.3900 ####[facility] [address] [place], [address] GAP Normal 5-15 [facility] Comment on above: Result Comment: Canc elled via OM: Order cancelled - Patient discharged Performed By: #### L 100.0100, L500.2500, L300.3900 ####[facility] [address] [place], [address] GLU Normal 74-106 [facility] Comment on above: Result Comment: Canc elled via OM: Order cancelled - Patient discharged Performed By: #### L 100.0100, L500.2500, L300.3900 ####[facility] [address] [place], [address] Potassium Normal 3.5-5.1 [facility] Comment on above: Result Comment: Canc elled via OM: Order cancelled - Patient discharged Performed By: #### L 100.0100, L500.2500, L300.3900 ####[facility] [address] [place], [address] Basic Metabolic Profile (BMP) Normal 136-145 [facility] Comment on above: Result Comment: Canc elled via OM: Order cancelled - Patient discharged Performed By: #### L 100.0100, L500.2500, L300.3900 ####[facility] [address] [place], [address] CBC W/Diff, Automatedon 09-0 -2023 Absolute Neut Normal 2.0-7.7 [facility] Comment on above: Result Comment: Canc elled via OM: Order cancelled - Patient discharged Performed By: #### L 100.0100, L500.2500, L300.3900 ####[facility] [address] [place], [address] HCT Normal 37-47 [facility] Comment on above: Result Comment: Canc elled via OM: Order cancelled - Patient discharged Performed By: #### L 100.0100, L500.2500, L300.3900 ####[facility] [address] [place], [address] HGB Normal 12.0-15.0 [facility] Comment on above: Result Comment: Canc elled via OM: Order cancelled - Patient discharged Performed By: #### L 100.0100, L500.2500, L300.3900 ####[facility] [address] [place], [address] MCH Normal 27.0-32.0 [facility] Comment on above: Result Comment: Canc elled via OM: Order cancelled - Patient discharged Performed By: #### L 100.0100, L500.2500, L300.3900 ####[facility] [address] [place], [address] MCHC Normal 32-36 [facility] Comment on above: Result Comment: Canc elled via OM: Order cancelled - Patient discharged Performed By: #### L 100.0100, L500.2500, L300.3900 ####[facility] [address] [place], [address] MCV Normal 81-99 [facility] Comment on above: Result Comment: Canc elled via OM: Order cancelled - Patient discharged Performed By: #### L 100.0100, L500.2500, L300.3900 ####[facility] [address] [place], [address] NEUT% Normal 47-70 [facility] Comment on above: Result Comment: Canc elled via OM: Order cancelled - Patient discharged Performed By: #### L 100.0100, L500.2500, L300.3900 ####[facility] [address] [place], [address] PLT Normal 150-450 [facility] Comment on above: Result Comment: Canc elled via OM: Order cancelled - Patient discharged Performed By: #### L 100.0100, L500.2500, L300.3900 ####[facility] [address] [place], [address] RBC Normal 4.2-5.4 [facility] Comment on above: Result Comment: Canc elled via OM: Order cancelled - Patient discharged Performed By: #### L 100.0100, L500.2500, L300.3900 ####[facility] [address] [place], [address] RDW CV Normal 11.6-14.6 [facility] Comment on above: Result Comment: Canc elled via OM: Order cancelled - Patient discharged Performed By: #### L 100.0100, L500.2500, L300.3900 ####[facility] [address] [place], [address] RDW SD Normal 35.1-43.9 [facility] Comment on above: Result Comment: Canc elled via OM: Order cancelled - Patient discharged Performed By: #### L 100.0100, L500.2500, L300.3900 ####[facility] [address] [place], [address] WBC Normal 4.4-11.0 [facility] Comment on above: Result Comment: Canc elled via OM: Order cancelled - Patient discharged Performed By: #### L 100.0100, L500.2500, L300.3900 ####[facility] [address] [place], [address] Prothrombin Time w/INRon INR Normal [facility] Comment on above: Result Comment: Canc elled via OM: Order cancelled - Patient discharged Performed By: #### L 100.0100, L500.2500, L300.3900 ####[facility] [address] [place], [address] PROTIME Normal 11.7-14.9 [facility] Comment on above: Result Comment: Canc elled via OM: Order cancelled - Patient discharged Performed By: #### L 100.0100, L500.2500, L300.3900 ####[facility] [address] [place], [address] Basic Metabolic Profile (BMP )on 01-03-2024 BUN/CRE 29.3 RATIO High 10-20 [facility] Comment on above: Performed By: #### L 500.2500, L100.0100, L300.3900 ####[facility] [address] [place], [address] CA,Total 9.4 mg/dL Normal 8.5-10.1 [facility] Comment on above: Performed By: #### L 500.2500, L100.0100, L300.3900 ####[facility] [address] [place], [address] Chloride [Moles/Vol] 102 mmol/L Normal 98-107 [facility] Comment on above: Performed By: #### L 500.2500, L100.0100, L300.3900 ####[facility] [address] [place], [address] CO2 [Moles/Vol] 25.0 mmol/L Normal 21.0-32.0 [facility] Comment on above: Performed By: #### L 500.2500, L100.0100, L300.3900 ####[facility] [address] [place], [address] Creatinine [Mass/Vol] 0.92 mg/dL Normal 0.55-1.02 [facility] Comment on above: Result Comment: The validity of the calculated GFR GFRAA in patients over70 years has not been determined. Clinical correlation isessential. Performed By: #### L 500.2500, L100.0100, L300.3900 ####[facility] [address] [place], [address] ECRCL 41.82 ml/min Normal [facility] Comment on above: Performed By: #### L 500.2500, L100.0100, L300.3900 ####[facility] [address] [place], [address] EST GFR - AA 75 mL/min Normal >60 [facility] Comment on above: Result Comment: Afri can Portuguese GFR Calc Performed By: #### L 500.2500, L100.0100, L300.3900 ####[facility] [address] [place], [address] GAP 10 Normal 5-15 [facility] Comment on above: Performed By: #### L 500.2500, L100.0100, L300.3900 ####[facility] [address] [place], [address] GFR/1.73 sq M.predicted among non-blacks MDRD (S/P/Bld) [Vol rate/Area] 62 mL/min/{1.73_m2} Normal >60 [facility] Comment on above: Result Comment: Non- GFR Calc Performed By: #### L 500.2500, L100.0100, L300.3900 ####[facility] [address] [place], [address] Glucose [Mass/Vol] 159 mg/dL High 74-106 [facility] Comment on above: Result Comment: Fast ing Glucose result greater than or equal to 126 mg/dLsuggests DIABETES MELLITUS per A.D.A. criteria. Performed By: #### L 500.2500, L100.0100, L300.3900 ####[facility] [address] [place], [address] Potassium [Moles/Vol] 3.2 mmol/L Low 3.5-5.1 [facility] Comment on above: Performed By: #### L 500.2500, L100.0100, L300.3900 ####[facility] [address] [place], [address] Sodium [Moles/Vol] 137 mmol/L Normal 136-145 [facility] Comment on above: Performed By: #### L 500.2500, L100.0100, L300.3900 ####[facility] [address] [place], [address] Urea nitrogen [Mass/Vol] 27 mg/dL High 7-18 [facility] Comment on above: Performed By: #### L 500.2500, L100.0100, L300.3900 ####[facility] [address] [place], [address] Bedside Glucoseon 01-03-2024 FINGERSTICK GLU 218 mg/dL High 74-106 [facility] Comment on above: Result Comment: LEVI GEMENT OF PATIENT CARE PER NURSING PROTOCOL Performed By: #### L 501.080 ####[facility] [address] [place], [address] FINGERSTICK GLU 161 mg/dL High 74-106 [facility] Comment on above: Result Comment: LEVI GEMENT OF PATIENT CARE PER NURSING PROTOCOL Performed By: #### L 501.080 ####[facility] [address] [place], [address] CBC W/Diff, Automatedon 09-0 Absolute Lymph 1.90 X10 3/uL Normal 0.83-4.51 [facility] Comment on above: Performed By: #### L 500.2500, L100.0100, L300.3900 ####[facility] [address] [place], [address] Absolute Neut 4.5 X10 3/uL Normal 2.0-7.7 [facility] Comment on above: Performed By: #### L 500.2500, L100.0100, L300.3900 ####[facility] [address] [place], [address] Basophils/100 WBC (Bld) 0.9 % Normal 0-1 [facility] Comment on above: Performed By: #### L 500.2500, L100.0100, L300.3900 ####[facility] [address] [place], [address] Eosinophils/100 WBC (Bld) 3.9 % Normal 0-5 [facility] Comment on above: Performed By: #### L 500.2500, L100.0100, L300.3900 ####[facility] [address] [place], [address] Erythrocyte distribution width (RBC) [Ratio] 15.9 % High 11.6-14.6 [facility] Comment on above: Performed By: #### L 500.2500, L100.0100, L300.3900 ####[facility] [address] [place], [address] Hematocrit (Bld) [Volume fraction] 35.0 % Low 37-47 [facility] Comment on above: Performed By: #### L 500.2500, L100.0100, L300.3900 ####[facility] [address] [place], [address] Hemoglobin (Bld) [Mass/Vol] 11.2 g/dL Low 12.0-15.0 [facility] Comment on above: Performed By: #### L 500.2500, L100.0100, L300.3900 ####[facility] [address] [place], [address] IG% 0.400 Normal 0.0-0.9 [facility] Comment on above: Result Comment: IG% - Immature Granulocytes (promyelocytes, myelocytes andmetamyelocytes) > 1% indicates that a LEFT SHIFT is Present. Performed By: #### L 500.2500, L100.0100, L300.3900 ####[facility] [address] [place], [address] Lymphocytes/100 WBC (Bld) 24.7 % Normal 19-41 [facility] Comment on above: Performed By: #### L 500.2500, L100.0100, L300.3900 ####[facility] [address] [place], [address] MCH (RBC) [Entitic mass] 31.2 pg Normal 27.0-32.0 [facility] Comment on above: Performed By: #### L 500.2500, L100.0100, L300.3900 ####[facility] [address] [place], [address] MCHC (RBC) [Mass/Vol] 32.0 g/dL Normal 32-36 [facility] Comment on above: Performed By: #### L 500.2500, L100.0100, L300.3900 ####[facility] [address] [place], [address] MCV (RBC) [Entitic vol] 97.5 fL Normal 81-99 [facility] Comment on above: Performed By: #### L 500.2500, L100.0100, L300.3900 ####[facility] [address] [place], [address] Monocytes/100 WBC (Bld) 12.2 % High 0-10 [facility] Comment on above: Performed By: #### L 500.2500, L100.0100, L300.3900 ####[facility] [address] [place], [address] Neutrophils/100 WBC (Bld) 57.9 % Normal 47-70 [facility] Comment on above: Performed By: #### L 500.2500, L100.0100, L300.3900 ####[facility] [address] [place], [address] Nucleated RBC (Bld) [#/Vol] 0 10*3/uL Normal 0-5 [facility] Comment on above: Performed By: #### L 500.2500, L100.0100, L300.3900 ####[facility] [address] [place], [address] Platelet mean volume (Bld) [Entitic vol] 10.2 fL Normal 6.2-12.0 [facility] Comment on above: Performed By: #### L 500.2500, L100.0100, L300.3900 ####[facility] [address] [place], [address] Platelets (Bld) [#/Vol] 283 10*3/uL Normal 150-450 [facility] Comment on above: Performed By: #### L 500.2500, L100.0100, L300.3900 ####[facility] [address] [place], [address] RBC (Bld) [#/Vol] 3.59 10*6/uL Low 4.2-5.4 [facility] Comment on above: Performed By: #### L 500.2500, L100.0100, L300.3900 ####[facility] [address] [place], [address] RDW SD 56.5 fl High 35.1-43.9 [facility] Comment on above: Performed By: #### L 500.2500, L100.0100, L300.3900 ####[facility] [address] [place], [address] WBC (Bld) [#/Vol] 7.7 10*3/uL Normal 4.4-11.0 [facility] Comment on above: Performed By: #### L 500.2500, L100.0100, L300.3900 ####[facility] [address] [place], [address] Discharge Instructionon Discharge Instruction Normal [facility] Prothrombin Time w/INRon INR Coag (PPP) [Relative time] 1.8 {INR} Normal [facility] Comment on above: Performed By: #### L 500.2500, L100.0100, L300.3900 ####[facility] [address] [place], [address] PT Coag (PPP) [Time] 21.2 s High 11.7-14.9 [facility] Comment on above: Performed By: #### L 500.2500, L100.0100, L300.3900 ####[facility] [address] [place], [address] Vitamin B12on 01-03-2024 Cobalamin (Vitamin B12) [Mass/Vol] 333 pg/mL Normal 211-911 [facility] Comment on above: Performed By: #### L 300.3900, L501.5200, L501.2300, L506.0250, L503.6550, L100.0500, L500.4050, L503.0105, L501.9520, L503.6030, L500.4100 ####[facility] [address] [place], [address] Basic Metabolic Profile (BMP )on 01-02-2024 BUN/CRE 23.2 RATIO High 10-20 [facility] Comment on above: Performed By: #### L 500.2500, L100.0100 ####[facility] [address] [place], [address] CA,Total 9.8 mg/dL Normal 8.5-10.1 [facility] Comment on above: Performed By: #### L 500.2500, L100.0100 ####[facility] [address] [place], [address] Chloride [Moles/Vol] 102 mmol/L Normal 98-107 [facility] Comment on above: Performed By: #### L 500.2500, L100.0100 ####[facility] [address] [place], [address] CO2 [Moles/Vol] 27.0 mmol/L Normal 21.0-32.0 [facility] Comment on above: Performed By: #### L 500.2500, L100.0100 ####[facility] [address] [place], [address] Creatinine [Mass/Vol] 0.86 mg/dL Normal 0.55-1.02 [facility] Comment on above: Result Comment: The validity of the calculated GFR GFRAA in patients over70 years has not been determined. Clinical correlation isessential. Performed By: #### L 500.2500, L100.0100 ####[facility] [address] [place], [address] ECRCL 45.39 ml/min Normal [facility] Comment on above: Performed By: #### L 500.2500, L100.0100 ####[facility] [address] [place], [address] EST GFR - AA 81 mL/min Normal >60 [facility] Comment on above: Result Comment: Afri can Portuguese GFR Calc Performed By: #### L 500.2500, L100.0100 ####[facility] [address] [place], [address] GAP 8 Normal 5-15 [facility] Comment on above: Performed By: #### L 500.2500, L100.0100 ####[facility] [address] [place], [address] GFR/1.73 sq M.predicted among non-blacks MDRD (S/P/Bld) [Vol rate/Area] 67 mL/min/{1.73_m2} Normal >60 [facility] Comment on above: Result Comment: Non- GFR Calc Performed By: #### L 500.2500, L100.0100 ####[facility] [address] [place], [address] Glucose [Mass/Vol] 151 mg/dL High 74-106 [facility] Comment on above: Result Comment: Fast ing Glucose result greater than or equal to 126 mg/dLsuggests DIABETES MELLITUS per A.D.A. criteria. Performed By: #### L 500.2500, L100.0100 ####[facility] [address] [place], [address] Potassium [Moles/Vol] 3.4 mmol/L Low 3.5-5.1 [facility] Comment on above: Performed By: #### L 500.2500, L100.0100 ####[facility] [address] [place], [address] Sodium [Moles/Vol] 137 mmol/L Normal 136-145 [facility] Comment on above: Performed By: #### L 500.2500, L100.0100 ####[facility] [address] [place], [address] Urea nitrogen [Mass/Vol] 20 mg/dL High 7-18 [facility] Comment on above: Performed By: #### L 500.2500, L100.0100 ####[facility] [address] [place], [address] Bedside Glucoseon 01-02-2024 FINGERSTICK GLU 215 mg/dL High 74-106 [facility] Comment on above: Result Comment: LEVI GEMENT OF PATIENT CARE PER NURSING PROTOCOL Performed By: #### L 501.080 ####[facility] [address] [place], [address] FINGERSTICK GLU 179 mg/dL High 74-106 [facility] Comment on above: Result Comment: LEVI GEMENT OF PATIENT CARE PER NURSING PROTOCOL Performed By: #### L 501.080 ####[facility] [address] [place], [address] FINGERSTICK GLU 146 mg/dL High 74-106 [facility] Comment on above: Result Comment: LEVI GEMENT OF PATIENT CARE PER NURSING PROTOCOL Performed By: #### L 501.080 ####[facility] [address] [place], [address] CBC W/Diff, Automatedon 09-0 Absolute Lymph 1.79 X10 3/uL Normal 0.83-4.51 [facility] Comment on above: Performed By: #### L 500.2500, L100.0100 ####[facility] [address] [place], [address] Absolute Neut 3.8 X10 3/uL Normal 2.0-7.7 [facility] Comment on above: Performed By: #### L 500.2500, L100.0100 ####[facility] [address] [place], [address] Basophils/100 WBC (Bld) 0.7 % Normal 0-1 [facility] Comment on above: Performed By: #### L 500.2500, L100.0100 ####[facility] [address] [place], [address] Eosinophils/100 WBC (Bld) 3.8 % Normal 0-5 [facility] Comment on above: Performed By: #### L 500.2500, L100.0100 ####[facility] [address] [place], [address] Erythrocyte distribution width (RBC) [Ratio] 16.1 % High 11.6-14.6 [facility] Comment on above: Performed By: #### L 500.2500, L100.0100 ####[facility] [address] [place], [address] Hematocrit (Bld) [Volume fraction] 35.0 % Low 37-47 [facility] Comment on above: Performed By: #### L 500.2500, L100.0100 ####[facility] [address] [place], [address] Hemoglobin (Bld) [Mass/Vol] 11.2 g/dL Low 12.0-15.0 [facility] Comment on above: Performed By: #### L 500.2500, L100.0100 ####[facility] [address] [place], [address] IG% 0.100 Normal 0.0-0.9 [facility] Comment on above: Result Comment: IG% - Immature Granulocytes (promyelocytes, myelocytes andmetamyelocytes) > 1% indicates that a LEFT SHIFT is Present. Performed By: #### L 500.2500, L100.0100 ####[facility] [address] [place], [address] Lymphocytes/100 WBC (Bld) 26.4 % Normal 19-41 [facility] Comment on above: Performed By: #### L 500.2500, L100.0100 ####[facility] [address] [place], [address] MCH (RBC) [Entitic mass] 31.3 pg Normal 27.0-32.0 [facility] Comment on above: Performed By: #### L 500.2500, L100.0100 ####[facility] [address] [place], [address] MCHC (RBC) [Mass/Vol] 32.0 g/dL Normal 32-36 [facility] Comment on above: Performed By: #### L 500.2500, L100.0100 ####[facility] [address] [place], [address] MCV (RBC) [Entitic vol] 97.8 fL Normal 81-99 [facility] Comment on above: Performed By: #### L 500.2500, L100.0100 ####[facility] [address] [place], [address] Monocytes/100 WBC (Bld) 13.1 % High 0-10 [facility] Comment on above: Performed By: #### L 500.2500, L100.0100 ####[facility] [address] [place], [address] Neutrophils/100 WBC (Bld) 55.9 % Normal 47-70 [facility] Comment on above: Performed By: #### L 500.2500, L100.0100 ####[facility] [address] [place], [address] Nucleated RBC (Bld) [#/Vol] 0.3 10*3/uL Normal 0-5 [facility] Comment on above: Performed By: #### L 500.2500, L100.0100 ####[facility] [address] [place], [address] Platelet mean volume (Bld) [Entitic vol] 11.1 fL Normal 6.2-12.0 [facility] Comment on above: Performed By: #### L 500.2500, L100.0100 ####[facility] [address] [place], [address] Platelets (Bld) [#/Vol] 271 10*3/uL Normal 150-450 [facility] Comment on above: Performed By: #### L 500.2500, L100.0100 ####[facility] [address] [place], [address] RBC (Bld) [#/Vol] 3.58 10*6/uL Low 4.2-5.4 [facility] Comment on above: Performed By: #### L 500.2500, L100.0100 ####[facility] [address] [place], [address] RDW SD 57.3 fl High 35.1-43.9 [facility] Comment on above: Performed By: #### L 500.2500, L100.0100 ####[facility] [address] [place], [address] WBC (Bld) [#/Vol] 6.8 10*3/uL Normal 4.4-11.0 [facility] Comment on above: Performed By: #### L 500.2500, L100.0100 ####[facility] [address] [place], [address] Bedside Glucoseon 01-01-2024 FINGERSTICK GLU 197 mg/dL High 74-106 [facility] Comment on above: Result Comment: LEVI GEMENT OF PATIENT CARE PER NURSING PROTOCOL Performed By: #### L 501.080 ####[facility] [address] [place], [address] FINGERSTICK GLU 166 mg/dL High 74-106 [facility] Comment on above: Result Comment: LEVI GEMENT OF PATIENT CARE PER NURSING PROTOCOL Performed By: #### L 501.080 ####[facility] [address] [place], [address] FINGERSTICK GLU 164 mg/dL High 74-106 [facility] Comment on above: Result Comment: LEVI GEMENT OF PATIENT CARE PER NURSING PROTOCOL Performed By: #### L 501.080 ####[facility] [address] [place], [place], [id number] CBC-Complete Blood Cnt No Di on 01-01-2024 Erythrocyte distribution width (RBC) [Ratio] 16.3 % High 11.6-14.6 [facility] Comment on above: Performed By: #### L 300.3900, L501.5200, L501.2300, L506.0250, L503.6550, L100.0500, L500.4050, L503.0105, L501.9520, L503.6030, L500.4100 ####[facility] [address] [place], [place], [address] Hematocrit (Bld) [Volume fraction] 33.4 % Low 37-47 [facility] Comment on above: Performed By: #### L 300.3900, L501.5200, L501.2300, L506.0250, L503.6550, L100.0500, L500.4050, L503.0105, L501.9520, L503.6030, L500.4100 ####[facility] [address] [place], [place], [address] Hemoglobin (Bld) [Mass/Vol] 10.7 g/dL Low 12.0-15.0 [facility] Comment on above: Performed By: #### L 300.3900, L501.5200, L501.2300, L506.0250, L503.6550, L100.0500, L500.4050, L503.0105, L501.9520, L503.6030, L500.4100 ####[facility] [address] [place], [address] MCH (RBC) [Entitic mass] 31.1 pg Normal 27.0-32.0 [facility] Comment on above: Performed By: #### L 300.3900, L501.5200, L501.2300, L506.0250, L503.6550, L100.0500, L500.4050, L503.0105, L501.9520, L503.6030, L500.4100 ####[facility] [address] [place], [place], [phone]) MCHC (RBC) [Mass/Vol] 32.0 g/dL Normal 32-36 [facility] Comment on above: Performed By: #### L 300.3900, L501.5200, L501.2300, L506.0250, L503.6550, L100.0500, L500.4050, L503.0105, L501.9520, L503.6030, L500.4100 ####[facility] [address] [place], [place], [id number] MCV (RBC) [Entitic vol] 97.1 fL Normal 81-99 [facility] Comment on above: Performed By: #### L 300.3900, L501.5200, L501.2300, L506.0250, L503.6550, L100.0500, L500.4050, L503.0105, L501.9520, L503.6030, L500.4100 ####[facility] [address] [place], [place], [address] Platelet mean volume (Bld) [Entitic vol] 11.3 fL Normal 6.2-12.0 [facility] Comment on above: Performed By: #### L 300.3900, L501.5200, L501.2300, L506.0250, L503.6550, L100.0500, L500.4050, L503.0105, L501.9520, L503.6030, L500.4100 ####[facility] [address] [place], [address](584) Platelets (Bld) [#/Vol] 279 10*3/uL Normal 150-450 [facility] Comment on above: Performed By: #### L 300.3900, L501.5200, L501.2300, L506.0250, L503.6550, L100.0500, L500.4050, L503.0105, L501.9520, L503.6030, L500.4100 ####[facility] [address] [place], [place], [address](820) RBC (Bld) [#/Vol] 3.44 10*6/uL Low 4.2-5.4 [facility] Comment on above: Performed By: #### L 300.3900, L501.5200, L501.2300, L506.0250, L503.6550, L100.0500, L500.4050, L503.0105, L501.9520, L503.6030, L500.4100 ####[facility] [address] [place], [place], [phone]) RDW SD 57.1 fl High 35.1-43.9 [facility] Comment on above: Performed By: #### L 300.3900, L501.5200, L501.2300, L506.0250, L503.6550, L100.0500, L500.4050, L503.0105, L501.9520, L503.6030, L500.4100 ####[facility] [address] [place], [place], [address](564) WBC (Bld) [#/Vol] 7.7 10*3/uL Normal 4.4-11.0 [facility] Comment on above: Performed By: #### L 300.3900, L501.5200, L501.2300, L506.0250, L503.6550, L100.0500, L500.4050, L503.0105, L501.9520, L503.6030, L500.4100 ####[facility] [address] [place], [place], [phone] Comprehensive Metabolic Prof ilon 01-01-2024 Albumin [Mass/Vol] 3.2 g/dL Normal 3.2-5.0 [facility] Comment on above: Order Comment: Commglenny nts: May add to ED labs Performed By: #### L 300.3900, L501.5200, L501.2300, L506.0250, L503.6550, L100.0500, L500.4050, L503.0105, L501.9520, L503.6030, L500.4100 ####[facility] [address] [place], [place], [id number] Albumin/Globulin [Mass ratio] 0.9 {ratio} Normal 0.9-2.4 [facility] Comment on above: Order Comment: Evelyn nts: May add to ED labs Performed By: #### L 300.3900, L501.5200, L501.2300, L506.0250, L503.6550, L100.0500, L500.4050, L503.0105, L501.9520, L503.6030, L500.4100 ####[facility] [address] [place], [place], [phone] ALK P 69 U/L Normal 45-117 [facility] Comment on above: Order Comment: Evelyn nts: May add to ED labs Performed By: #### L 300.3900, L501.5200, L501.2300, L506.0250, L503.6550, L100.0500, L500.4050, L503.0105, L501.9520, L503.6030, L500.4100 ####[facility] [address] [place], [place], [phone] ALT [Catalytic activity/Vol] 15 U/L Normal 13-56 [facility] Comment on above: Order Comment: Evelyn nts: May add to ED labs Performed By: #### L 300.3900, L501.5200, L501.2300, L506.0250, L503.6550, L100.0500, L500.4050, L503.0105, L501.9520, L503.6030, L500.4100 ####[facility] [address] [place], [place], [id number] AST [Catalytic activity/Vol] 16 U/L Normal 15-37 [facility] Comment on above: Order Comment: Comme nts: May add to ED labs Performed By: #### L 300.3900, L501.5200, L501.2300, L506.0250, L503.6550, L100.0500, L500.4050, L503.0105, L501.9520, L503.6030, L500.4100 ####[facility] [address] [place], [place], [id number] Bilirubin [Mass/Vol] 0.70 mg/dL Normal 0.20-1.00 [facility] Comment on above: Order Comment: Evelyn nts: May add to ED labs Result Comment: For patients on eltrombopag therapy, use of Dimension [place] TBIL is not recommended. Performed By: #### L 300.3900, L501.5200, L501.2300, L506.0250, L503.6550, L100.0500, L500.4050, L503.0105, L501.9520, L503.6030, L500.4100 ####[facility] [address] [place], [place], [phone] BUN/CRE 22.4 RATIO High 10-20 [facility] Comment on above: Order Comment: Evelyn nts: May add to ED labs Performed By: #### L 300.3900, L501.5200, L501.2300, L506.0250, L503.6550, L100.0500, L500.4050, L503.0105, L501.9520, L503.6030, L500.4100 ####[facility] [address] [place], [address] CA,Total 9.1 mg/dL Normal 8.5-10.1 [facility] Comment on above: Order Comment: Comme nts: May add to ED labs Performed By: #### L 300.3900, L501.5200, L501.2300, L506.0250, L503.6550, L100.0500, L500.4050, L503.0105, L501.9520, L503.6030, L500.4100 ####[facility] [address] [place], [address] Chloride [Moles/Vol] 101 mmol/L Normal 98-107 [facility] Comment on above: Order Comment: Commglenny nts: May add to ED labs Performed By: #### L 300.3900, L501.5200, L501.2300, L506.0250, L503.6550, L100.0500, L500.4050, L503.0105, L501.9520, L503.6030, L500.4100 ####[facility] [address] [place], [address] CO2 [Moles/Vol] 25.0 mmol/L Normal 21.0-32.0 [facility] Comment on above: Order Comment: Evelyn nts: May add to ED labs Performed By: #### L 300.3900, L501.5200, L501.2300, L506.0250, L503.6550, L100.0500, L500.4050, L503.0105, L501.9520, L503.6030, L500.4100 ####[facility] [address] [place], [address] Creatinine [Mass/Vol] 0.98 mg/dL Normal 0.55-1.02 [facility] Comment on above: Order Comment: Commglenny nts: May add to ED labs Result Comment: The validity of the calculated GFR GFRAA in patients over70 years has not been determined. Clinical correlation isessential. Performed By: #### L 300.3900, L501.5200, L501.2300, L506.0250, L503.6550, L100.0500, L500.4050, L503.0105, L501.9520, L503.6030, L500.4100 ####[facility] [address] [place], [place], [phone] ECRCL 39.72 ml/min Normal [facility] Comment on above: Order Comment: Comme nts: May add to ED labs Performed By: #### L 300.3900, L501.5200, L501.2300, L506.0250, L503.6550, L100.0500, L500.4050, L503.0105, L501.9520, L503.6030, L500.4100 ####[facility] [address] [place], [place], [id number] EST GFR - AA 69 mL/min Normal >60 [facility] Comment on above: Order Comment: Commglenny nts: May add to ED labs Result Comment: Afri can Portuguese GFR Calc Performed By: #### L 300.3900, L501.5200, L501.2300, L506.0250, L503.6550, L100.0500, L500.4050, L503.0105, L501.9520, L503.6030, L500.4100 ####[facility] [address] [place], [place], [id number] GAP 11 Normal 5-15 [facility] Comment on above: Order Comment: Evelyn nts: May add to ED labs Performed By: #### L 300.3900, L501.5200, L501.2300, L506.0250, L503.6550, L100.0500, L500.4050, L503.0105, L501.9520, L503.6030, L500.4100 ####[facility] [address] [place], [place], [id number] GFR/1.73 sq M.predicted among non-blacks MDRD (S/P/Bld) [Vol rate/Area] 57 mL/min/{1.73_m2} Low >60 [facility] Comment on above: Order Comment: Evelyn nts: May add to ED labs Result Comment: Non- GFR Calc Performed By: #### L 300.3900, L501.5200, L501.2300, L506.0250, L503.6550, L100.0500, L500.4050, L503.0105, L501.9520, L503.6030, L500.4100 ####[facility] [address] [place], [place], [phone] Globulin (S) [Mass/Vol] 3.7 g/dL Normal 2.2-4.2 [facility] Comment on above: Order Comment: Evelyn nts: May add to ED labs Performed By: #### L 300.3900, L501.5200, L501.2300, L506.0250, L503.6550, L100.0500, L500.4050, L503.0105, L501.9520, L503.6030, L500.4100 ####[facility] [address] [place], [place], [id number] Glucose [Mass/Vol] 161 mg/dL High 74-106 [facility] Comment on above: Order Comment: Evelyn nts: May add to ED labs Result Comment: Fast ing Glucose result greater than or equal to 126 mg/dLsuggests DIABETES MELLITUS per A.D.A. criteria. Performed By: #### L 300.3900, L501.5200, L501.2300, L506.0250, L503.6550, L100.0500, L500.4050, L503.0105, L501.9520, L503.6030, L500.4100 ####[facility] [address] [place], [address] Potassium [Moles/Vol] 3.0 mmol/L Low 3.5-5.1 [facility] Comment on above: Order Comment: Commglenny nts: May add to ED labs Performed By: #### L 300.3900, L501.5200, L501.2300, L506.0250, L503.6550, L100.0500, L500.4050, L503.0105, L501.9520, L503.6030, L500.4100 ####[facility] [address] [place], [address] Sodium [Moles/Vol] 137 mmol/L Normal 136-145 [facility] Comment on above: Order Comment: Evelyn nts: May add to ED labs Performed By: #### L 300.3900, L501.5200, L501.2300, L506.0250, L503.6550, L100.0500, L500.4050, L503.0105, L501.9520, L503.6030, L500.4100 ####[facility] [address] [place], [address] T PROT 6.9 g/dL Normal 6.4-8.2 [facility] Comment on above: Order Comment: Evelyn nts: May add to ED labs Performed By: #### L 300.3900, L501.5200, L501.2300, L506.0250, L503.6550, L100.0500, L500.4050, L503.0105, L501.9520, L503.6030, L500.4100 ####[facility] [address] [place], [address] Urea nitrogen [Mass/Vol] 22 mg/dL High 7-18 [facility] Comment on above: Order Comment: Evelyn nts: May add to ED labs Performed By: #### L 300.3900, L501.5200, L501.2300, L506.0250, L503.6550, L100.0500, L500.4050, L503.0105, L501.9520, L503.6030, L500.4100 ####[facility] [address] [place], [place], [id number] Ferritinon 01-01-2024 Ferritin [Mass/Vol] 257 ng/mL High 8-252 [facility] Comment on above: Order Comment: Comme nts: May add to ED labs Performed By: #### L 300.3900, L501.5200, L501.2300, L506.0250, L503.6550, L100.0500, L500.4050, L503.0105, L501.9520, L503.6030, L500.4100 ####[facility] [address] [place], [address] Folates, (Folic Acid)on FOLATES 9.90 ng/mL Normal 3.1-55.4 [facility] Comment on above: Order Comment: Comme nts: May add to ED labs Performed By: #### L 300.3900, L501.5200, L501.2300, L506.0250, L503.6550, L100.0500, L500.4050, L503.0105, L501.9520, L503.6030, L500.4100 ####[facility] [address] [place], [place], [id number] Hemoglobin A1con 01-01-2024 HbA1c (Bld) [Mass fraction] 6.8 % High 3.8-5.6 [facility] Comment on above: Result Comment: Norm al < 5.7 % Prediabetic 5.7 - 6.4 % Diabetic >or= 6.5 % Please note range changes. Performed By: #### L 761.9985 ####[facility] [address] [place], [address] Iron+Iron Binding Capacityon 01-01-2024 Iron [Mass/Vol] 36 ug/dL Low 50-170 [facility] Comment on above: Order Comment: Evelyn nts: May add to ED labs Performed By: #### L 300.3900, L501.5200, L501.2300, L506.0250, L503.6550, L100.0500, L500.4050, L503.0105, L501.9520, L503.6030, L500.4100 ####[facility] [address] [place], [address] IRON SATURATION 12.6 Low 15.0-55.0 [facility] Comment on above: Order Comment: Evelyn nts: May add to ED labs Performed By: #### L 300.3900, L501.5200, L501.2300, L506.0250, L503.6550, L100.0500, L500.4050, L503.0105, L501.9520, L503.6030, L500.4100 ####[facility] [address] [place], [place], [phone] TIBC 286 ug/dL Normal 250-450 [facility] Comment on above: Order Comment: Evelyn nts: May add to ED labs Performed By: #### L 300.3900, L501.5200, L501.2300, L506.0250, L503.6550, L100.0500, L500.4050, L503.0105, L501.9520, L503.6030, L500.4100 ####[facility] [address] [place], [place], [id number] Lipid Profileon 01-01-2024 Cholesterol [Mass/Vol] 99 mg/dL Normal [address] [facility] Comment on above: Order Comment: Evelyn nts: May add to ED labs Result Comment: <200 mg/dL Desirable 200-240 mg/dL Borderline >240 mg/dL High Risk Performed By: #### L 300.3900, L501.5200, L501.2300, L506.0250, L503.6550, L100.0500, L500.4050, L503.0105, L501.9520, L503.6030, L500.4100 ####[facility] [address] [place], [address] Cholesterol in HDL [Mass/Vol] 23 mg/dL Low [facility] Comment on above: Order Comment: Comme nts: May add to ED labs Result Comment: The drugs N-Acetylcysteine and Metamizole may falselydepress this assay. Reference Range HDL <40 mg/dL Low HDL Cholesterol HDL >or= 60 mg/dL High HDL Cholesterol Performed By: #### L 300.3900, L501.5200, L501.2300, L506.0250, L503.6550, L100.0500, L500.4050, L503.0105, L501.9520, L503.6030, L500.4100 ####[facility] [address] [place], [address] Cholesterol in LDL [Mass/Vol] 38 mg/dL Normal 0-130 [facility] Comment on above: Order Comment: Comme nts: May add to ED labs Performed By: #### L 300.3900, L501.5200, L501.2300, L506.0250, L503.6550, L100.0500, L500.4050, L503.0105, L501.9520, L503.6030, L500.4100 ####[facility] [address] [place], [address] Cholesterol in VLDL [Mass/Vol] 38 mg/dL Normal 5-40 [facility] Comment on above: Order Comment: Comme nts: May add to ED labs Performed By: #### L 300.3900, L501.5200, L501.2300, L506.0250, L503.6550, L100.0500, L500.4050, L503.0105, L501.9520, L503.6030, L500.4100 ####[facility] [address] [place], [place], [address] Triglyceride [Mass/Vol] 191 mg/dL Normal [facility] Comment on above: Order Comment: Comme nts: May add to ED labs Result Comment: The drugs N-Acetylcysteine and Metamizole may falselydepress this assay.Serum Triglycerides Reference Interval Normal <150 mg/dL Borderline high 150 - 199 mg/dL High 200 - 499 mg/dL Very High > or = 500 mg/dL Performed By: #### L 300.3900, L501.5200, L501.2300, L506.0250, L503.6550, L100.0500, L500.4050, L503.0105, L501.9520, L503.6030, L500.4100 ####[facility] [address] [place], [place], [phone] Magnesiumon 01-01-2024 Magnesium [Mass/Vol] 1.6 mg/dL Normal 1.6-2.6 [facility] Comment on above: Order Comment: Comme nts: May add to ED labs Performed By: #### L 300.3900, L501.5200, L501.2300, L506.0250, L503.6550, L100.0500, L500.4050, L503.0105, L501.9520, L503.6030, L500.4100 ####[facility] [address] [place], [address] Phosphoruson 01-01-2024 Phosphate [Mass/Vol] 4.0 mg/dL Normal 2.5-4.9 [facility] Comment on above: Order Comment: Comme nts: May add to ED labs Performed By: #### L 300.3900, L501.5200, L501.2300, L506.0250, L503.6550, L100.0500, L500.4050, L503.0105, L501.9520, L503.6030, L500.4100 ####[facility] [address] [place], [address] Prothrombin Time w/INRon INR Coag (PPP) [Relative time] 2.1 {INR} Normal [facility] Comment on above: Performed By: #### L 300.3900, L501.5200, L501.2300, L506.0250, L503.6550, L100.0500, L500.4050, L503.0105, L501.9520, L503.6030, L500.4100 ####[facility] [address] [place], [address] PT Coag (PPP) [Time] 23.2 s High 11.7-14.9 [facility] Comment on above: Performed By: #### L 300.3900, L501.5200, L501.2300, L506.0250, L503.6550, L100.0500, L500.4050, L503.0105, L501.9520, L503.6030, L500.4100 ####[facility] [address] [place], [place], [phone] Thyroid Stim Hormone (TSH)on 01-01-2024 TSH 1.920 uIU/mL Normal 0.358-3.740 [facility] Comment on above: Order Comment: Comme nts: May add to ED labs Performed By: #### L 300.3900, L501.5200, L501.2300, L506.0250, L503.6550, L100.0500, L500.4050, L503.0105, L501.9520, L503.6030, L500.4100 ####[facility] [address] [place], [place], [id number] 12 Lead EKGon 12-31-2023 12 Lead EKG Normal [facility] BNP,B-Type NATRIURETIC PEPTI Juvenal 12-31-2023 Natriuretic peptide B (Bld) [Mass/Vol] 379.2 pg/mL High 0-100 [facility] Comment on above: Performed By: #### L 300.3900, L100.0100, L300.4310, L500.2500, L501.4020, L500.3400, L503.6005, L503.6620 ####[facility] [address] [place], [address] Basic Metabolic Profile (BMP )on 12-31-2023 BUN/CRE 24.2 RATIO High 10-20 [facility] Comment on above: Order Comment: 'TROP ' Serial specimen #1, #2 or #3: 1 Performed By: #### L 300.3900, L100.0100, L300.4310, L500.2500, L501.4020, L500.3400, L503.6005, L503.6620 ####[facility] [address] [place], [place], [phone] CA,Total 9.6 mg/dL Normal 8.5-10.1 [facility] Comment on above: Order Comment: 'TROP ' Serial specimen #1, #2 or #3: 1 Performed By: #### L 300.3900, L100.0100, L300.4310, L500.2500, L501.4020, L500.3400, L503.6005, L503.6620 ####[facility] [address] [place], [address] Chloride [Moles/Vol] 105 mmol/L Normal 98-107 [facility] Comment on above: Order Comment: 'TROP ' Serial specimen #1, #2 or #3: 1 Performed By: #### L 300.3900, L100.0100, L300.4310, L500.2500, L501.4020, L500.3400, L503.6005, L503.6620 ####[facility] [address] [place], [address] CO2 [Moles/Vol] 25.0 mmol/L Normal 21.0-32.0 [facility] Comment on above: Order Comment: 'TROP ' Serial specimen #1, #2 or #3: 1 Performed By: #### L 300.3900, L100.0100, L300.4310, L500.2500, L501.4020, L500.3400, L503.6005, L503.6620 ####[facility] [address] [place], [address] Creatinine [Mass/Vol] 0.95 mg/dL Normal 0.55-1.02 [facility] Comment on above: Order Comment: 'TROP ' Serial specimen #1, #2 or #3: 1 Result Comment: The validity of the calculated GFR GFRAA in patients over70 years has not been determined. Clinical correlation isessential. Performed By: #### L 300.3900, L100.0100, L300.4310, L500.2500, L501.4020, L500.3400, L503.6005, L503.6620 ####[facility] [address] [place], [address] ECRCL 41.36 ml/min Normal [facility] Comment on above: Order Comment: 'TROP ' Serial specimen #1, #2 or #3: 1 Performed By: #### L 300.3900, L100.0100, L300.4310, L500.2500, L501.4020, L500.3400, L503.6005, L503.6620 ####[facility] [address] [place], [address] EST GFR - AA 72 mL/min Normal >60 [facility] Comment on above: Order Comment: 'TROP ' Serial specimen #1, #2 or #3: 1 Result Comment: Afri can Portuguese GFR Calc Performed By: #### L 300.3900, L100.0100, L300.4310, L500.2500, L501.4020, L500.3400, L503.6005, L503.6620 ####[facility] [address] [place], [address] GAP 9 Normal 5-15 [facility] Comment on above: Order Comment: 'TROP ' Serial specimen #1, #2 or #3: 1 Performed By: #### L 300.3900, L100.0100, L300.4310, L500.2500, L501.4020, L500.3400, L503.6005, L503.6620 ####[facility] [address] [place], [address] GFR/1.73 sq M.predicted among non-blacks MDRD (S/P/Bld) [Vol rate/Area] 60 mL/min/{1.73_m2} Normal >60 [facility] Comment on above: Order Comment: 'TROP ' Serial specimen #1, #2 or #3: 1 Result Comment: Non- GFR Calc Performed By: #### L 300.3900, L100.0100, L300.4310, L500.2500, L501.4020, L500.3400, L503.6005, L503.6620 ####[facility] [address] [place], [address] Glucose [Mass/Vol] 132 mg/dL High 74-106 [facility] Comment on above: Order Comment: 'TROP ' Serial specimen #1, #2 or #3: 1 Result Comment: Fast ing Glucose result greater than or equal to 126 mg/dLsuggests DIABETES MELLITUS per A.D.A. criteria. Performed By: #### L 300.3900, L100.0100, L300.4310, L500.2500, L501.4020, L500.3400, L503.6005, L503.6620 ####[facility] [address] [place], [address] Potassium [Moles/Vol] 3.3 mmol/L Low 3.5-5.1 [facility] Comment on above: Order Comment: 'TROP ' Serial specimen #1, #2 or #3: 1 Performed By: #### L 300.3900, L100.0100, L300.4310, L500.2500, L501.4020, L500.3400, L503.6005, L503.6620 ####[facility] [address] [place], [address] Sodium [Moles/Vol] 139 mmol/L Normal 136-145 [facility] Comment on above: Order Comment: 'TROP ' Serial specimen #1, #2 or #3: 1 Performed By: #### L 300.3900, L100.0100, L300.4310, L500.2500, L501.4020, L500.3400, L503.6005, L503.6620 ####[facility] [address] [place], [place], [phone] Urea nitrogen [Mass/Vol] 23 mg/dL High 7-18 [facility] Comment on above: Order Comment: 'TROP ' Serial specimen #1, #2 or #3: 1 Performed By: #### L 300.3900, L100.0100, L300.4310, L500.2500, L501.4020, L500.3400, L503.6005, L503.6620 ####[facility] [address] [place], [address] CBC W/Diff, Automatedon -3 Absolute Lymph 1.39 X10 3/uL Normal 0.83-4.51 [facility] Comment on above: Performed By: #### L 300.3900, L100.0100, L300.4310, L500.2500, L501.4020, L500.3400, L503.6005, L503.6620 ####[facility] [address] [place], [address] Absolute Neut 3.2 X10 3/uL Normal 2.0-7.7 [facility] Comment on above: Performed By: #### L 300.3900, L100.0100, L300.4310, L500.2500, L501.4020, L500.3400, L503.6005, L503.6620 ####[facility] [address] [place], [address] Basophils/100 WBC (Bld) 0.6 % Normal 0-1 [facility] Comment on above: Performed By: #### L 300.3900, L100.0100, L300.4310, L500.2500, L501.4020, L500.3400, L503.6005, L503.6620 ####[facility] [address] [place], [address] Eosinophils/100 WBC (Bld) 3.4 % Normal 0-5 [facility] Comment on above: Performed By: #### L 300.3900, L100.0100, L300.4310, L500.2500, L501.4020, L500.3400, L503.6005, L503.6620 ####[facility] [address] [place], [address] Erythrocyte distribution width (RBC) [Ratio] 16.1 % High 11.6-14.6 [facility] Comment on above: Performed By: #### L 300.3900, L100.0100, L300.4310, L500.2500, L501.4020, L500.3400, L503.6005, L503.6620 ####[facility] [address] [place], [address] Hematocrit (Bld) [Volume fraction] 34.8 % Low 37-47 [facility] Comment on above: Performed By: #### L 300.3900, L100.0100, L300.4310, L500.2500, L501.4020, L500.3400, L503.6005, L503.6620 ####[facility] [address] [place], [address] Hemoglobin (Bld) [Mass/Vol] 11.1 g/dL Low 12.0-15.0 [facility] Comment on above: Performed By: #### L 300.3900, L100.0100, L300.4310, L500.2500, L501.4020, L500.3400, L503.6005, L503.6620 ####[facility] [address] [place], [address] IG% 0.400 Normal 0.0-0.9 [facility] Comment on above: Result Comment: IG% - Immature Granulocytes (promyelocytes, myelocytes andmetamyelocytes) > 1% indicates that a LEFT SHIFT is Present. Performed By: #### L 300.3900, L100.0100, L300.4310, L500.2500, L501.4020, L500.3400, L503.6005, L503.6620 ####[facility] [address] [place], [address] Lymphocytes/100 WBC (Bld) 26.0 % Normal 19-41 [facility] Comment on above: Performed By: #### L 300.3900, L100.0100, L300.4310, L500.2500, L501.4020, L500.3400, L503.6005, L503.6620 ####[facility] [address] [place], [address] MCH (RBC) [Entitic mass] 31.4 pg Normal 27.0-32.0 [facility] Comment on above: Performed By: #### L 300.3900, L100.0100, L300.4310, L500.2500, L501.4020, L500.3400, L503.6005, L503.6620 ####[facility] [address] [place], [address] MCHC (RBC) [Mass/Vol] 31.9 g/dL Low 32-36 [facility] Comment on above: Performed By: #### L 300.3900, L100.0100, L300.4310, L500.2500, L501.4020, L500.3400, L503.6005, L503.6620 ####[facility] [address] [place], [address] MCV (RBC) [Entitic vol] 98.3 fL Normal 81-99 [facility] Comment on above: Performed By: #### L 300.3900, L100.0100, L300.4310, L500.2500, L501.4020, L500.3400, L503.6005, L503.6620 ####[facility] [address] [place], [address] Monocytes/100 WBC (Bld) 10.1 % High 0-10 [facility] Comment on above: Performed By: #### L 300.3900, L100.0100, L300.4310, L500.2500, L501.4020, L500.3400, L503.6005, L503.6620 ####[facility] [address] [place], [address] Neutrophils/100 WBC (Bld) 59.5 % Normal 47-70 [facility] Comment on above: Performed By: #### L 300.3900, L100.0100, L300.4310, L500.2500, L501.4020, L500.3400, L503.6005, L503.6620 ####[facility] [address] [place], [address] Nucleated RBC (Bld) [#/Vol] 0 10*3/uL Normal 0-5 [facility] Comment on above: Performed By: #### L 300.3900, L100.0100, L300.4310, L500.2500, L501.4020, L500.3400, L503.6005, L503.6620 ####[facility] [address] [place], [address] Platelet mean volume (Bld) [Entitic vol] 11.1 fL Normal 6.2-12.0 [facility] Comment on above: Performed By: #### L 300.3900, L100.0100, L300.4310, L500.2500, L501.4020, L500.3400, L503.6005, L503.6620 ####[facility] [address] [place], [address] Platelets (Bld) [#/Vol] 243 10*3/uL Normal 150-450 [facility] Comment on above: Performed By: #### L 300.3900, L100.0100, L300.4310, L500.2500, L501.4020, L500.3400, L503.6005, L503.6620 ####[facility] [address] [place], [address] RBC (Bld) [#/Vol] 3.54 10*6/uL Low 4.2-5.4 [facility] Comment on above: Performed By: #### L 300.3900, L100.0100, L300.4310, L500.2500, L501.4020, L500.3400, L503.6005, L503.6620 ####[facility] [address] [place], [address] RDW SD 58.6 fl High 35.1-43.9 [facility] Comment on above: Performed By: #### L 300.3900, L100.0100, L300.4310, L500.2500, L501.4020, L500.3400, L503.6005, L503.6620 ####[facility] [address] [place], [address] WBC (Bld) [#/Vol] 5.3 10*3/uL Normal 4.4-11.0 [facility] Comment on above: Performed By: #### L 300.3900, L100.0100, L300.4310, L500.2500, L501.4020, L500.3400, L503.6005, L503.6620 ####[facility] [address] [place], [place], [address] CNOVon 12-31-2023 CNOV Normal [facility] COVID 19 AG RAPID (RN ETHEL T)on 12-31-2023 SARS-CoV-2 (COVID-19) RNA MARCOS+probe Ql (Unsp spec) Normal [facility] Comment on above: Performed By: #### M 100.505 ####[facility] [address] [place], [place], [address] CTA Chest W/WO Contraston CTA Chest W/WO Contrast Normal [facility] Chest 1 View (Portable)on Chest 1 View (Portable) Normal [facility] Echo Completeon 12-31-2023 Echo Complete Normal [facility] Emergency Department Summary on 12-31-2023 Emergency Department Summary Normal [facility] H AND P Exam - Hospitaliston 12-31-2023 H&P Exam - Hospitalist Normal [facility] L501.4020on 12-31-2023 TROPONIN-I HS 11 pg/mL Normal 3.0-54.0 [facility] Comment on above: Order Comment: 'TROP ' Serial specimen #1, #2 or #3: 1 Result Comment: Plea se Note: New Test Units and Gender Specific Reference Ranges. For more information see Policy Stat Procedure [place] High Sensitivity Troponin (TNIH) and attachments. Performed By: #### L 300.3900, L100.0100, L300.4310, L500.2500, L501.4020, L500.3400, L503.6005, L503.6620 ####[facility] [address] [place], [address] Lactic Acidon 12-31-2023 Lactate [Moles/Vol] 1.1 mmol/L Normal 0.4-1.9 [facility] Comment on above: Order Comment: Y Performed By: #### L 300.3900, L100.0100, L300.4310, L500.2500, L501.4020, L500.3400, L503.6005, L503.6620 ####[facility] [address] [place], [address] Liver Profileon 12-31-2023 Albumin [Mass/Vol] 3.4 g/dL Normal 3.2-5.0 [facility] Comment on above: Order Comment: 'TROP ' Serial specimen #1, #2 or #3: 1 Performed By: #### L 300.3900, L100.0100, L300.4310, L500.2500, L501.4020, L500.3400, L503.6005, L503.6620 ####[facility] [address] [place], [address] ALK P 81 U/L Normal 45-117 [facility] Comment on above: Order Comment: 'TROP ' Serial specimen #1, #2 or #3: 1 Performed By: #### L 300.3900, L100.0100, L300.4310, L500.2500, L501.4020, L500.3400, L503.6005, L503.6620 ####[facility] [address] [place], [address] ALT [Catalytic activity/Vol] 22 U/L Normal 13-56 [facility] Comment on above: Order Comment: 'TROP ' Serial specimen #1, #2 or #3: 1 Performed By: #### L 300.3900, L100.0100, L300.4310, L500.2500, L501.4020, L500.3400, L503.6005, L503.6620 ####[facility] [facility] [address] [place], [address] AST [Catalytic activity/Vol] 17 U/L Normal 15-37 [facility] Comment on above: Order Comment: 'TROP ' Serial specimen #1, #2 or #3: 1 Performed By: #### L 300.3900, L100.0100, L300.4310, L500.2500, L501.4020, L500.3400, L503.6005, L503.6620 ####[facility] [address] [place], [address] Bilirubin [Mass/Vol] 0.80 mg/dL Normal 0.20-1.00 [facility] Comment on above: Order Comment: 'TROP ' Serial specimen #1, #2 or #3: 1 Result Comment: For patients on eltrombopag therapy, use of Dimension [place] TBIL is not recommended. Performed By: #### L 300.3900, L100.0100, L300.4310, L500.2500, L501.4020, L500.3400, L503.6005, L503.6620 ####[facility] [address] [place], [address] Bilirubin.direct [Mass/Vol] 0.22 mg/dL Normal 0.00-0.30 [facility] Comment on above: Order Comment: 'TROP ' Serial specimen #1, #2 or #3: 1 Performed By: #### L 300.3900, L100.0100, L300.4310, L500.2500, L501.4020, L500.3400, L503.6005, L503.6620 ####[facility] [address] [place], [address] Globulin (S) [Mass/Vol] 4.1 g/dL Normal 2.2-4.2 [facility] Comment on above: Order Comment: 'TROP ' Serial specimen #1, #2 or #3: 1 Performed By: #### L 300.3900, L100.0100, L300.4310, L500.2500, L501.4020, L500.3400, L503.6005, L503.6620 ####[facility] [address] [place], [address] T PROT 7.5 g/dL Normal 6.4-8.2 [facility] Comment on above: Order Comment: 'TROP ' Serial specimen #1, #2 or #3: 1 Performed By: #### L 300.3900, L100.0100, L300.4310, L500.2500, L501.4020, L500.3400, L503.6005, L503.6620 ####[facility] [address] [place], [address] Partial Thromboplast Timeon 12-31-2023 aPTT Coag (Bld) [Time] 50.5 s High 24.1-36.[address] [facility] Comment on above: Performed By: #### L 300.3900, L100.0100, L300.4310, L500.2500, L501.4020, L500.3400, L503.6005, L503.6620 ####[facility] [address] [place], [address] Prothrombin Time w/INRon INR Coag (PPP) [Relative time] 2.1 {INR} Normal [facility] Comment on above: Performed By: #### L 300.3900, L100.0100, L300.4310, L500.2500, L501.4020, L500.3400, L503.6005, L503.6620 ####[facility] [address] [place], [address] PT Coag (PPP) [Time] 23.1 s High 11.7-14.9 [facility] Comment on above: Performed By: #### L 300.3900, L100.0100, L300.4310, L500.2500, L501.4020, L500.3400, L503.6005, L503.6620 ####[facility] [address] [place], [address] RESPIRATORY PANEL MOLECULARo n 12-31-2023 RP PANEL Normal [facility] Comment on above: Performed By: #### M 100.638 ####[facility] [address] [place], [address] Urinalysis, Completeon 12-30 EPI,SQUAMOUS 0-5 SEEN Normal 5-10 [facility] Comment on above: Order Comment: CLEAN CATCH Performed By: #### L 400.0001 ####[facility] [address] [place], [address] WBC 0-5 SEEN Normal 0-5 [facility] Comment on above: Order Comment: CLEAN CATCH Performed By: #### L 400.0001 ####[facility] [address] [place], [address] BACTERIA 0 SEEN Normal None Seen [facility] Comment on above: Order Comment: CLEAN CATCH Performed By: #### L 400.0001 ####[facility] [address] [place], [address] Mucus Ql (Urine sed) 0 SEEN Normal [facility] Comment on above: Order Comment: CLEAN CATCH Performed By: #### L 400.0001 ####[facility] [address] [place], [address] RBC 0 SEEN Normal 0-5 [facility] Comment on above: Order Comment: CLEAN CATCH Performed By: #### L 400.0001 ####[facility] [address] [place], [address] ALBUMIN/CREATININE RATIO, UR INEon 12-27-2023 Albumin DL <= 20 mg/L (U) [Mass/Vol] 33.6 mg/L Normal [facility] Comment on above: Order Comment: Speci men Type: URINE SPECIMENOrdering Facility: [facility] Address: [address] [place] [address] Performed By: #### U ACR ####[facility] LABCLIA [id number] [place] [address] [place] Albumin/Creatinine (U) [Mass ratio] 19 mg/g Normal <30 [facility] Comment on above: Order Comment: Speci men Type: URINE SPECIMENOrdering Facility: [facility] Address: [address] [place] [address] Result Comment: Adul t Male and Female Nephrotic Criteria:<30 mg/g is considered normal to mildly mqzvbzlox42-598 mg/g is considered moderately increased>300 mg/g is considered severely increasedKDIGO. (2013). KDIGO 2012 Clinical Practice Guideline for the Evaluation and Management of Chronic Kidney Disease. Official Journal of the International Society of Nephrology, 3(1), 1-150. Performed By: #### U ACR ####[facility] LABCLIA [id number] [place] [address] [place] Creatinine (U) [Mass/Vol] 177.0 mg/dL Normal 20.0-300.0 [facility] Comment on above: Order Comment: Speci men Type: URINE SPECIMENOrdering Facility: [facility] Address: [address] [place] [address] Performed By: #### U ACR ####[facility] LABCLIA [id number] [place] [address] [place] CBC panel Auto (Bld)on 12-26 Erythrocyte distribution width (RBC) [Ratio] 15.9 % High 11.5-15.0 [facility] Comment on above: Order Comment: Speci men Type: BLOOD SPECIMENOrdering Facility: [facility] Address: [address] [place] [address] Performed By: #### 5 8410-2 ####[facility] LABCLIA [id number] [place] [address] [place] Hematocrit (Bld) [Volume fraction] 35.7 % Low 36.0-46.0 [facility] Comment on above: Order Comment: Speci men Type: BLOOD SPECIMENOrdering Facility: [facility] Address: [address] [place] [address] Performed By: #### 5 8410-2 ####[facility] LABIA [id number] [place] [address] [place] Hemoglobin (Bld) [Mass/Vol] 11.4 g/dL Low 11.5-15.5 [facility] Comment on above: Order Comment: Speci men Type: BLOOD SPECIMENOrdering Facility: [facility] Address: [address] [place] [address] Performed By: #### 5 8410-2 ####[facility] LABIA [id number] [place] [address] [place] MCH (RBC) [Entitic mass] 32.0 pg Normal 26.0-34.0 [facility] Comment on above: Order Comment: Speci men Type: BLOOD SPECIMENOrdering Facility: [facility] Address: [address] [place] [address] Performed By: #### 5 8410-2 ####[facility] LABIA [id number] [place] [address] [place] MCHC (RBC) [Mass/Vol] 31.9 g/dL Normal 30.5-36.0 [facility] Comment on above: Order Comment: Speci men Type: BLOOD SPECIMENOrdering Facility: [facility] Address: [address] [place] [address] Performed By: #### 5 8410-2 ####[facility] LABCLIA [id number] [place] [address] [place] MCV (RBC) [Entitic vol] 100.3 fL High 80.0-100.0 [facility] Comment on above: Order Comment: Speci men Type: BLOOD SPECIMENOrdering Facility: [facility] Address: [address] [place] [address] Performed By: #### 5 8410-2 ####[facility] LABIA [id number] [place] [address] [place] Nucleated RBC (Bld) [#/Vol] 10*3/uL Normal <0.01 [facility] Comment on above: Order Comment: Speci men Type: BLOOD SPECIMENOrdering Facility: [facility] Address: [address] [place] [address] Performed By: #### 5 8410-2 ####[facility] LABIA [id number] [place] [address] [place] Platelet mean volume (Bld) [Entitic vol] 12.7 fL Normal 9.0-12.7 [facility] Comment on above: Order Comment: Speci men Type: BLOOD SPECIMENOrdering Facility: [facility] Address: [address] [place] [address] Performed By: #### 5 8410-2 ####[facility] LABIA [id number] [place] [address] [place] Platelets (Bld) [#/Vol] 216 10*3/uL Normal 150-400 [facility] Comment on above: Order Comment: Speci men Type: BLOOD SPECIMENOrdering Facility: [facility] Address: [address] [place] [address] Performed By: #### 5 8410-2 ####[facility] LABIA [id number] [place] [address] [place] RBC (Bld) [#/Vol] 3.56 10*6/uL Low 3.90-5.20 [facility] Comment on above: Order Comment: Speci men Type: BLOOD SPECIMENOrdering Facility: [facility] Address: [address] [place] [address] Performed By: #### 5 8410-2 ####[facility] LABCLIA [id number] [address] [address] [place] WBC (Bld) [#/Vol] 7.13 10*3/uL Normal 3.70-11.00 [facility] Comment on above: Order Comment: Speci men Type: BLOOD SPECIMENOrdering Facility: [facility] Address: [address] [place] [address] Performed By: #### 5 8410-2 ####[facility] LABCLIA [id number] [place] [address] [place] CNPNon 12-27-2023 CNPN Normal [facility] metabolic 2000 panelon 12-27-2023 Albumin [Mass/Vol] 4.0 g/dL Normal 3.9-4.9 [facility] Comment on above: Order Comment: Speci men Type: BLOOD SPECIMENOrdering Facility: [facility] Address: [address] [place] [address] Performed By: #### 2 4323-8, 84855-9 ####[facility] LABCLIA [id number] [place] [address] [place] ALP [Catalytic activity/Vol] 64 U/L Normal 34-123 [facility] Comment on above: Order Comment: Speci men Type: BLOOD SPECIMENOrdering Facility: [facility] Address: [address] [place] [address] Performed By: #### 2 4323-8, 09321-8 ####[facility] LABCLIA [id number] [place] [address] [place] ALT [Catalytic activity/Vol] 22 U/L Normal 7-38 [facility] Comment on above: Order Comment: Speci men Type: BLOOD SPECIMENOrdering Facility: [facility] Address: [address] [place] [address] Performed By: #### 2 4323-8, 12486-5 ####[facility] LABCLIA [id number] [place] [id number] [place] Anion gap [Moles/Vol] 12 mmol/L Normal 8-15 [facility] Comment on above: Order Comment: Speci men Type: BLOOD SPECIMENOrdering Facility: [facility] Address: [address] [place] [address] Performed By: #### 2 4323-8, 94554-8 ####[facility] LABCLIA [id number] [place] [address] [place] AST [Catalytic activity/Vol] 23 U/L Normal 13-35 [facility] Comment on above: Order Comment: Speci men Type: BLOOD SPECIMENOrdering Facility: [facility] Address: [address] [place] [address] Performed By: #### 2 4323-8, 67649-3 ####[facility] LABCLIA [id number] [place] [address] [place] Bilirubin [Mass/Vol] 0.9 mg/dL Normal 0.2-1.3 [facility] Comment on above: Order Comment: Speci men Type: BLOOD SPECIMENOrdering Facility: [facility] Address: [address] [place] [address] Performed By: #### 2 4323-8, 85740-9 ####[facility] LABCLIA [id number] [place] [address] [place] Calcium [Mass/Vol] 9.4 mg/dL Normal 8.5-10.2 [facility] Comment on above: Order Comment: Speci men Type: BLOOD SPECIMENOrdering Facility: [facility] Address: [address] [place] [address] Performed By: #### 2 4323-8, 37403-4 ####[facility] LABCLIA [id number] [place] [address] [place] Chloride [Moles/Vol] 101 mmol/L Normal 98-107 [facility] Comment on above: Order Comment: Speci men Type: BLOOD SPECIMENOrdering Facility: [facility] Address: [address] [place] [address] Performed By: #### 2 4323-8, 57648-3 ####[facility] LABCLIA [id number] [place] [address] [place] CO2 [Moles/Vol] 25 mmol/L Normal 22-30 [facility] Comment on above: Order Comment: Speci men Type: BLOOD SPECIMENOrdering Facility: [facility] Address: [address] [place] [address] Performed By: #### 2 4323-8, 52773-5 ####[facility] LABIA [id number] [place] [address] [place] Creatinine [Mass/Vol] 0.71 mg/dL Normal 0.58-0.96 [facility] Comment on above: Order Comment: Speci men Type: BLOOD SPECIMENOrdering Facility: [facility] Address: [address] [place] [address] Performed By: #### 2 4323-8, 83398-9 ####[facility] LABIA [id number] [place] [address] [place] Creatinine and Glomerular filtration rate.predicted panel (S/P/Bld) 84 mL/min/1.73m??? Normal >=60 [facility] Comment on above: Order Comment: Speci men Type: BLOOD SPECIMENOrdering Facility: [facility] Address: [address] [place] [address] Result Comment: Kimberley mated Glomerular Filtration Rate (eGFR) is calculated using the 2020 CKD-EPI creatinine equation. This equation utilizes serum creatinine, sex, and age as parameters. The creatinine assay has traceable calibration to isotope dilution-mass spectrometry. Refer to KDIGO guidelines for clinical interpretation. In patients with unstable renal function, e.g. those with acute kidney injury, the eGFR may not accurately reflect actual GFR. Performed By: #### 2 4323-8, 94753-0 ####[facility] LABCLIA [id number] [place] [address] [place] Glucose [Mass/Vol] 159 mg/dL High 74-99 [facility] Comment on above: Order Comment: Speci men Type: BLOOD SPECIMENOrdering Facility: [facility] Address: [address] [place] [address] Result Comment: The [place] Diabetes Association (ADA) provides guidance for cutoff values for fasting glucose and random glucose. The ADA defines fasting as no caloric intake for at least 8 hours. Fasting plasma glucose results between 100 to 125 mg/dL indicate increased risk for diabetes (prediabetes).Fasting plasma glucose results greater than or equal to 126 mg/dL meet the criteria for diagnosis of diabetes. In the absence of unequivocal hyperglycemia, results should be confirmed by repeat testing. In a patient with classic symptoms of hyperglycemia or hyperglycemic crisis, random plasma glucose results greater than or equal to 200 mg/dL meet the criteria for diagnosis of diabetes.Reference: Standards of Medical Care in Diabetes 2016, [place] Diabetes Association. Diabetes Care. 2016.39(Suppl 1). Performed By: #### 2 4323-8, 92568-5 ####[facility] LABIA [id number] [place] [address] [place] Potassium [Moles/Vol] 3.9 mmol/L Normal 3.7-5.1 [facility] Comment on above: Order Comment: Speci men Type: BLOOD SPECIMENOrdering Facility: [facility] Address: [address] [place] [address] Performed By: #### 2 4323-8, 03393-5 ####[facility] LABIA [id number] [place] [address] [place] Protein [Mass/Vol] 7.1 g/dL Normal 6.3-8.0 [facility] Comment on above: Order Comment: Speci men Type: BLOOD SPECIMENOrdering Facility: [facility] Address: [address] [place] [address] Performed By: #### 2 4323-8, 88843-1 ####[facility] LABCLIA [id number] [address] [address] [place] Sodium [Moles/Vol] 138 mmol/L Normal 136-144 [facility] Comment on above: Order Comment: Speci men Type: BLOOD SPECIMENOrdering Facility: [facility] Address: [address] [place] [address] Performed By: #### 2 4323-8, 79963-9 ####[facility] LABCLIA [id number] [place] [address] [place] Urea nitrogen [Mass/Vol] 16 mg/dL Normal 7-21 [facility] Comment on above: Order Comment: Speci men Type: BLOOD SPECIMENOrdering Facility: [facility] Address: [address] [place] [address] Performed By: #### 2 4323-8, 88768-2 ####[facility] LABIA [id number] [place] [address] [place] HbA1c (Bld)on 12-27-2023 Average glucose Estimated from glycated hemoglobin (Bld) [Mass/Vol] 151 mg/dL Normal [facility] Comment on above: Order Comment: Speci men Type: BLOOD SPECIMENOrdering Facility: [facility] Address: [address] [place] [address] Result Comment: eAG: (Estimated average glucose) is a calculated value from HgbA1c and is service representative of the average blood glucose level in the last 2-3 month period. Performed By: #### 5 5454-3 ####[facility] [id number] [place] [address] [place] HbA1c (Bld) [Mass fraction] 6.9 % High 4.3-5.6 [facility] Comment on above: Order Comment: Speci men Type: BLOOD SPECIMENOrdering Facility: [facility] Address: [address] [place] [address] Result Comment: [place] Diabetes Association guidelines indicate that patients with HgbA1c in the range 5.7-6.4% are at increased risk for development of diabetes, and intervention by lifestyle modification may be beneficial. HgbA1c greater or equal to 6.5% is considered diagnostic of diabetes. Performed By: #### 5 5454-3 ####[facility] LABCLIA [id number] [place] [address] [place] Lipid 1996 panelon 4 Cholesterol [Mass/Vol] 118 mg/dL Normal <200 [facility] Comment on above: Order Comment: Speci men Type: BLOOD SPECIMENOrdering Facility: [facility] Address: [address] [place] [address] Result Comment: <200 mg/dL, Desirable 200-239 mg/dL, Borderline high>239 mg/dL, High Performed By: #### 2 4323-8, 56407-7 ####[facility] LABCLIA [id number] [address] [place] Cholesterol in HDL [Mass/Vol] 22 mg/dL Low >39 [facility] Comment on above: Order Comment: Miguel cunningham Type: BLOOD SPECIMENOrdering Facility: [facility] Address: [address] [place] [address] Result Comment: 40-5 9 mg/dL, Acceptable>59 mg/dL, High: Negative risk factor for coronary heart disease<40 mg/dL, Low: Positive risk factor for coronary heart disease Performed By: #### 2 4323-8, 07233-0 ####[facility] LABCLIA [id number] [address] [place] Cholesterol in LDL [Mass/Vol] 33 mg/dL Normal <100 [facility] Comment on above: Order Comment: Miguel cunningham Type: BLOOD SPECIMENOrdering Facility: [facility] Address: [address] [place] [address] Result Comment: <100 mg/dL, Optimal 100-129 mg/dL, Near optimal/above optimal 130-159 mg/dL, Borderline high 160-189 mg/dL, High>189 mg/dL, Very highSecondary prevention optimal LDL Cholesterol levels are recommended to be < 70 mg/dL Performed By: #### 2 4323-8, 10024-0 ####[facility] LABCLIA [id number] [place] [address] [place] Cholesterol in LDL/Cholesterol in HDL [Mass ratio] 1.50 {ratio} Normal <2.54 [facility] Comment on above: Order Comment: Speci men Type: BLOOD SPECIMENOrdering Facility: [facility] Address: [address] [place] [address] Result Comment: Checo richardson:1. National Cholesterol Education Program ATP III Guideline At-A-Glance Quick Desk Reference: National Heart, Lung, and Blood Lafe. National Institutes of Health. 2001: NIH Publication No. 01-3305.2. An International Atherosclerosis Society position paper: global recommendations for the management of dyslipidemia: executive summary, Atherosclerosis. 2014: 232(2):410-413. Performed By: #### 2 4323-8, 41392-3 ####[facility] LABCLIA [id number] [place] [address] [place] Cholesterol in VLDL [Mass/Vol] 63 mg/dL High <30 [facility] Comment on above: Order Comment: Ana Mi men Type: BLOOD SPECIMENOrdering Facility: [facility] Address: [address] [place] [address] Performed By: #### 2 4323-8, 58484-9 ####[facility] LABCLIA [id number] [address] [address] [place] Cholesterol non HDL [Mass/Vol] 96 mg/dL Normal <130 [facility] Comment on above: Order Comment: Ana Mi men Type: BLOOD SPECIMENOrdering Facility: [facility] Address: [address] [place] [address] Result Comment: <130 mg/dL, Optimal 130-159 mg/dL, Near optimal/above optimal 160-189 mg/dL, Borderline high 190-219 mg/dL, High>219 mg/dL, Very highSecondary prevention optimal non HDL Cholesterol levels are recommended to be <100 mg/dL Performed By: #### 2 4323-8, 77700-3 ####[facility] LABCLIA [id number] [place] [address] [place] Cholesterol.total/Roz sterol in HDL [Mass ratio] 5.36 {ratio} High <5.10 [facility] Comment on above: Order Comment: Speci men Type: BLOOD SPECIMENOrdering Facility: [facility] Address: [address] [place] [address] Performed By: #### 2 4323-8, 53915-0 ####[facility] LABCLIA [id number] [place] [address] [place] FASTING TIME 12 hrs Normal [facility] Comment on above: Order Comment: Speci men Type: BLOOD SPECIMENOrdering Facility: [facility] Address: [address] [place] [address] Performed By: #### 2 4323-8, 96019-9 ####[facility] LABCLIA [id number] [place] [address] [place] Triglyceride [Mass/Vol] 315 mg/dL High <150 [facility] Comment on above: Order Comment: Speci men Type: BLOOD SPECIMENOrdering Facility: [facility] Address: [address] [place] [address] Result Comment: <150 mg/dL, Normal 150-199 mg/dL, Borderline high 200-499 mg/dL, High>499 mg/dL, Very high Performed By: #### 2 4323-8, 13439-6 ####[facility] LABCLIA [id number] [place] [address] [place] CNPNon 12-12-2023 CNPN Normal [facility] XR CHEST 2V FRONTAL/LATon XR CHEST 2V FRONTAL/LAT [facility] and Lateralon IMPRESSION: Left upper lobe nodule, seen on patient's CT chest dated 10/24/2023. A few hazy opacities overlying the left mid to lower lung zones, raising concern for infection/pneumonia. Please clinically correlate. Mild cardiomegaly. Design Engineering Specialist: JEN Transcribe Date/Time: Dec 12 2023 10:20A Dictated by : JOSÉ MIGUEL MEEKS MD This examination was interpreted and the report reviewed and electronically signed by: JOÉS MIGUEL MEEKS MD on Dec 12 2023 10:22AM [facility] DIVISION OF RADIOLOGY * * *Final Report* * * DATE OF EXAM: Dec 12 2023 10:15AM WOX 5291 - XR CHEST 2V FRONTAL/LAT / PROCEDURE REASON: Acute cough * * * * Physician Interpretation * * * * EXAMINATION: CHEST RADIOGRAPH (2 VIEW FRONTAL & LATERAL) CLINICAL HISTORY: Acute cough MQ: XC2_6 EXAM DATE/TIME: 12/12/2023 10:15 AM COMPARISON: No relevant prior studies available. RESULT: Lines, tubes, and devices: None. Lungs and pleura: There is a 1.8 cm nodule in the left upper lobe. There are a few hazy opacities overlying the left mid to lower lung zones. The right lung is clear. Left-sided trace pleural effusion cannot be excluded. No pneumothorax. Cardiomediastinal silhouette: There appears be mild cardiomegaly. Atherosclerotic calcifications and tortuosity or dilation of the thoracic aorta are noted. Bones and soft tissues: The spine shows mild degenerative changes. DIVISION OF RADIOLOGY Provider, [facility] - 12/12/2023 * * *Final Report* * * DATE OF EXAM: Dec 12 2023 10:15AM WOX 5291 - XR CHEST 2V FRONTAL/LAT / PROCEDURE REASON: Acute cough * * * * Physician Interpretation * * * * EXAMINATION: CHEST RADIOGRAPH (2 VIEW FRONTAL & LATERAL) CLINICAL HISTORY: Acute cough MQ: XC2_6 EXAM DATE/TIME: 12/12/2023 10:15 AM COMPARISON: No relevant prior studies available. RESULT: Lines, tubes, and devices: None. Lungs and pleura: There is a 1.8 cm nodule in the left upper lobe. There are a few hazy opacities overlying the left mid to lower lung zones. The right lung is clear. Left-sided trace pleural effusion cannot be excluded. No pneumothorax. Cardiomediastinal silhouette: There appears be mild cardiomegaly. Atherosclerotic calcifications and tortuosity or dilation of the thoracic aorta are noted. Bones and soft tissues: The spine shows mild degenerative changes. IMPRESSION IMPRESSION: Left upper lobe nodule, seen on patient's CT chest dated 10/24/2023. A few hazy opacities overlying the left mid to lower lung zones, raising concern for infection/pneumonia. Please clinically correlate. Mild cardiomegaly. Design Engineering Specialist: PSCB Transcribe Date/Time: Dec 12 2023 10:20A Dictated by : JOSÉ MIGUEL MEEKS MD This examination was interpreted and the report reviewed and electronically signed by: JOSÉ MIGUEL MEEKS MD on Dec 12 2023 10:22AM EST [facility] Radiology Study observation (narrative) [facility] XR Chest PA and LateralOrder ed By: Ccf Provider on 12-12-2023 [facility] CNOVon 12-11-2023 CNOV Normal [facility] COVID AND INFLUENZA A/B AND RSV NAAT, ROUTINEon 12-11-2023 SARS-CoV-2 (COVID-19) RNA MARCOS+probe Ql (Unsp spec) Normal [facility] Comment on above: Performed By: #### C VFLRS ####[facility] LABCLIA [id number] [place] [address] [place] HBV core Ab Ser Qlon 024 HBV core Ab Ql (S) Negative Normal Negative [facility] Comment on above: Order Comment: Speci men Type: BLOOD SPECIMENOrdering Facility: [facility] Address: [address] [place] [address] Result Comment: No e vidence of current or past infection with Hepatitis B virus. Should recent infection be suspected, repeat testing may be considered 3-4 weeks after this draw. Performed By: #### 5 195-3, 14396-1, 10299-8 ####[facility] LABCLIA [id number] [place] [address] [place] HBV surface Ab Ql (S)on HBV surface Ab Qn (S) <8.00 Normal [facility] Comment on above: Order Comment: Speci men Type: BLOOD SPECIMENOrdering Facility: [facility] Address: [address] [place] [address] Result Comment: <8 m IU/mL: No serological evidence of immunity to Hepatitis B Virus.>/= 8 to <12 mIU/mL: No serological evidence of immunity to Hepatitis B Virus.>/= 12 mIU/mL: Consistent with serological evidence of immunity to Hepatitis B Virus. Performed By: #### 5 195-3, 65175-8, 37392-8 ####[facility] LABCLIA [id number] [place] [address] [place] HBV surface Ab Ser Qlon HBV surface Ab Ql (S) Negative Normal [facility] Comment on above: Order Comment: Speci men Type: BLOOD SPECIMENOrdering Facility: [facility] Address: [address] [place] [address] Result Comment: No s erological evidence of immunity to Hepatitis B Virus. Performed By: #### 5 195-3, 62215-8, 43497-3 ####[facility] LABCLIA [id number] [place] [address] [place] HBV surface Ag Ser Qlon HBV surface Ag Ql (S) Negative Normal Negative [facility] Comment on above: Order Comment: Speci men Type: BLOOD SPECIMENOrdering Facility: [facility] Address: [address] [place] [address] Performed By: #### 5 195-3, 71039-3, 89009-8 ####[facility] LABCLIA [id number] [place] [address] [place] HCV Ab Ser Qlon 12-08-2023 HCV Ab Ql (S) Negative Normal Negative [facility] Comment on above: Order Comment: Speci men Type: BLOOD SPECIMENOrdering Facility: [facility] Address: [address] [place] [address] Result Comment: The result suggests no evidence of active infection with Hepatitis C virus. Should recent infection be suspected, repeat testing may be considered 4-6 weeks after this draw. Performed By: #### 1 6128-1 ####[facility] LABCLIA [id number] [place] [address] [place] Hepatic function 2000 panelo n 12-08-2023 Albumin [Mass/Vol] 4.1 g/dL Normal 3.9-4.9 [facility] Comment on above: Order Comment: Speci men Type: BLOOD SPECIMENOrdering Facility: [facility] Address: [address] [place] [address] Performed By: #### 2 4325-3 ####[facility] LABCLIA [id number] [place] [address] [place] ALP [Catalytic activity/Vol] 55 U/L Normal 34-123 [facility] Comment on above: Order Comment: Speci men Type: BLOOD SPECIMENOrdering Facility: [facility] Address: [address] [place] [address] Performed By: #### 2 4325-3 ####[facility] LABCLIA [id number] [place] [address] [place] ALT [Catalytic activity/Vol] 20 U/L Normal 7-38 [facility] Comment on above: Order Comment: Speci men Type: BLOOD SPECIMENOrdering Facility: [facility] Address: [address] [place] [address] Performed By: #### 2 4325-3 ####[facility] LABCLIA [id number] [place] [address] [place] AST [Catalytic activity/Vol] 21 U/L Normal 13-35 [facility] Comment on above: Order Comment: Speci men Type: BLOOD SPECIMENOrdering Facility: [facility] Address: [address] [place] [id number] Performed By: #### 2 4325-3 ####[facility] LABCLIA [id number] [address] [address] [place] Bilirubin [Mass/Vol] 0.4 mg/dL Normal 0.2-1.3 [facility] Comment on above: Order Comment: Speci men Type: BLOOD SPECIMENOrdering Facility: [facility] Address: [address] [place] [address] Performed By: #### 2 4325-3 ####[facility] LABIA [id number] [place] [address] [place] Bilirubin.conjugated [Mass/Vol] mg/dL Normal <0.2 [facility] Comment on above: Order Comment: Speci men Type: BLOOD SPECIMENOrdering Facility: [facility] Address: [address] [place] [address] Performed By: #### 2 4325-3 ####[facility] LABIA [id number] [place] [address] [place] Protein [Mass/Vol] 6.7 g/dL Normal 6.3-8.0 [facility] Comment on above: Order Comment: Speci men Type: BLOOD SPECIMENOrdering Facility: [facility] Address: [address] [place] [address] Performed By: #### 2 4325-3 ####[facility] LABIA [id number] [place] [id number] [place] US ABD RIGHT UPPER QUADRANTo n 11-30-2023 US ABD RIGHT UPPER QUADRANT Normal [facility] US Abdomen RUQon 11-30-2023 IMPRESSION: Cholelithiasis. Design Engineering Specialist: JEN Transcribe Date/Time: Nov 30 2023 9:57A Dictated by : JONNIE VILLEGAS MD This examination was interpreted and the report reviewed and electronically signed by: JONNIE VILLEGAS MD on Nov 30 2023 10:05AM [facility] DIVISION OF RADIOLOGY * * *Final Report* * * DATE OF EXAM: Nov 30 2023 8:19AM WRU 1032 - US ABD RIGHT UPPER QUADRANT / PROCEDURE REASON: Elevated alanine aminotransferase (ALT) level * * * * Physician Interpretation * * * * EXAMINATION: RIGHT UPPER QUADRANT ULTRASOUND CLINICAL HISTORY: Elevated liver function enzymes TECHNIQUE: Sonography of the right upper quadrant was performed. Images were obtained and stored in a permanent archive and interpreted remotely. MQ: URUQ_2 COMPARISON: None. RESULT: Pancreas: Normal sonographic appearance. Portions obscured: tail Liver: Echotexture: Normal, homogeneous. Echogenicity: Normal Surface contour: Smooth Lesions: None. Biliary: No intrahepatic biliary duct dilation. CBD: 0.4 cm at the hilum. Gallbladder: Normal caliber -Contents: Cholelithiasis with small subcentimeter echogenic calculi identified. -Wall: Normal -Other: No pericholecystic fluid. Right Kidney: No hydronephrosis. Ascites: None. DIVISION OF RADIOLOGY Provider, [facility] - 11/30/2023 * * *Final Report* * * DATE OF EXAM: Nov 30 2023 8:19AM U 1032 - US ABD RIGHT UPPER QUADRANT / PROCEDURE REASON: Elevated alanine aminotransferase (ALT) level * * * * Physician Interpretation * * * * EXAMINATION: RIGHT UPPER QUADRANT ULTRASOUND CLINICAL HISTORY: Elevated liver function enzymes TECHNIQUE: Sonography of the right upper quadrant was performed. Images were obtained and stored in a permanent archive and interpreted remotely. MQ: URUQ_2 COMPARISON: None. RESULT: Pancreas: Normal sonographic appearance. Portions obscured: tail Liver: Echotexture: Normal, homogeneous. Echogenicity: Normal Surface contour: Smooth Lesions: None. Biliary: No intrahepatic biliary duct dilation. CBD: 0.4 cm at the hilum. Gallbladder: Normal caliber -Contents: Cholelithiasis with small subcentimeter echogenic calculi identified. -Wall: Normal -Other: No pericholecystic fluid. Right Kidney: No hydronephrosis. Ascites: None. IMPRESSION IMPRESSION: Cholelithiasis. Design Engineering Specialist: JEN Transcribe Date/Time: Nov 30 2023 9:57A Dictated by : JONNIE VILLEGAS MD This examination was interpreted and the report reviewed and electronically signed by: JONNIE VILLEGAS MD on Nov 30 2023 10:05AM EST [facility] Radiology Study observation (narrative) [facility] US Abdomen RUQOrdered By: Noelle rich Provider on 11-30-2023 [facility] CNOVon 11-18-2023 CNOV Normal [facility] CNCOon 11-14-2023 CNCO Letter Text Normal [facility] CNOVon 11-14-2023 CNOV Normal [facility] CNOV Normal [facility] STRESS ECHO TREADMILLon 10-30 Stress ECG Report: Stress Echo [facility] Date of service: 11/14/2023 1:48:28 PM ADMINISTRATOR Ordering physician: ANASTASIIA COLÓN emergency management specialist: Santana Hernandez Interpreting physician: Eugene Christianson MD Patient name: ERI PRITCHARD Age: 83 years Gender: F History of hypertension, dyslipidemia and arrhythmia. Height: 158.80 cm BSA: 1.68 m Weight: 63.96 kg BMI: 25.4 kg/m Indication: Chest pressure / Chest tightness Stress ECG Conclusion: Conclusion: Normal Stress ECG Summary: The patient's resting heart rate was 91 bpm and blood pressure was 150/90 mmHg. The patient exercised according to the Man protocol. The estimated end-exercise MET level achieved using the FRIEND equation was 4.2, which is within the 10th to 25th percentile for age and sex. The estimated end-exercise MET level achieved using the previous ACSM equation was 4.6. The test was terminated due to general fatigue and the total exercise time was 3 minutes and 0 seconds. No symptoms provoked during stress. The maximum heart rate was 137 bpm, which is 101% of the predicted heart rate for age. This is an adequate heart rate response. Peak blood pressure was 170/94 mmHg. The double product achieved was [address]. Medications: Last Used METOPROLOL 1 Days AMLODIPINE 1 Days Resting ECG: Atrial Fib/Flutter and Rare PVCs (<3/Min) Symptoms at rest: No symptoms Exercise Protocol: Man +-----+ +-- -------+ +-- -+---+---+----+---+-- --+ Speed (MPH) Grade (%) Time (min) HR SYS RADHA RPE SOB METS +-----+ +-- -------+ +-- -+---+---+----+---+-- --+ Final 1.7 10.0 3.00 137 170 94 13.0 5.0 4.2 +-----+ +-- -------+ +-- -+---+---+----+---+-- --+ +-----+ ---+ Arrhythmias +-----+ ---+ Final Rare PVC (<3/min) +-----+ ---+ Recovery Table: +------+---+---+---+ Stage HR SYS RADHA +------+---+---+---+ 1 113 +------+---+---+---+ 2 127 +------+---+---+---+ 3 110 +------+---+---+---+ 4 115 164 94 +------+---+---+---+ 5 +------+---+---+---+ Stress Observations: Resting HR: 91 bpm Peak HR: 137 bpm (101% MPHR) Resting BP: 150 / 90 mmHg Peak BP: 170 / 94 mmHg Total exercise time: 3 minutes 0 seconds METS achieved: 4.2 Chronotropic response index (CRI): 1.02 Heart rate recovery (HRR): 24 bpm Rate Pressure Product (RPP): 57307 Travis Treadmill Score: 10.0 Stress Exercise Observations: Reason for test termination: general fatigue, Symptoms during test: No symptoms provoked during stress, Heart rate response: Adequate heart rate response, Normal CRI (> 0.62 on B Hillary) and Normal HRR (>12 or >[address]/EC), Blood pressure response: Normal BP response, ST segment and T wave changes: No ST changes, Travis Treadmill Score: Normal Travis Treadmill Score (>=5) and Arrhythmias: Unifocal PVCs Metabolic Exercise Data Variable: Observed value [Expected Range] HGI: 0.7 [>1.06 bpm/mmHg] IMPORTANT NOTE REGARDING ESTIMATED MET VALUES: Effective 02/17/2020, the reference equation for determining estimated MET values for [facility] stress tests changed. Comparison of test results before and after that date may show a change in estimated MET values for peak/max exercise despite a test duration that is similar in length. The validity of the new FRIEND equation for exercise METS is endorsed by the [place] [employer]. Bobby P, Jennifer LA, Madison R, Rojas J, Chey J. New Generalized Equation for Predicting Maximal Oxygen Uptake (from the Fitness Registry and the Importance of Exercise National Database). The [place] Journal of Cardiology. 2017;120(4):688-692). Final -------- Echocardiography Report: Stress Echo [facility] Date of service: 11/14/2023 1:48:28 PM ADMINISTRATOR Ordering physician: ANASTASIIA COLÓN Indication: Chest Pain Technologist: Prerna Krause [facility] Interpreting physician: Eugene Christianson MD PATIENT: Name: ERI PRITCHARD : 1940 Age: 83 years Gender: F History of hypertension, dyslipidemia and arrhythmia. Primary rhythm: atrial fib. Height: 158.80 cm BSA: 1.68 m Weight: 63.96 kg BMI: 25.4 kg/m Heart rate 91 bpm Blood pressure 150/90 mmHg Technically difficult exam due to body habitus. Color Doppler was utilized to interrogate the cardiac valves assessed and spectral Doppler was utilized to determine the flow velocities and pressure gradients reported in this exam. MEASUREMENTS: Value (more content not included)... [facility] STRESS ECHO TREADMILL Normal [facility] Basic metabolic 2000 panelon 11-10-2023 Anion gap [Moles/Vol] 12 mmol/L Normal 8-15 [facility] Comment on above: Order Comment: Speci men Type: BLOOD SPECIMENOrdering Facility: [facility] Address: [address] [place] [address] Performed By: #### 2 4321-2 ####[facility] LABCLIA [id number] [place] [address] [place] Calcium [Mass/Vol] 9.6 mg/dL Normal 8.5-10.2 [facility] Comment on above: Order Comment: Speci men Type: BLOOD SPECIMENOrdering Facility: [facility] Address: [address] [place] [address] Performed By: #### 2 4321-2 ####[facility] LABCLIA [id number] [place] [address] [place] Chloride [Moles/Vol] 100 mmol/L Normal 98-107 [facility] Comment on above: Order Comment: Speci men Type: BLOOD SPECIMENOrdering Facility: [facility] Address: [address] [place] [address] Performed By: #### 2 4321-2 ####[facility] LABCLIA [id number] [place] [address] [place] CO2 [Moles/Vol] 26 mmol/L Normal 22-30 [facility] Comment on above: Order Comment: Speci men Type: BLOOD SPECIMENOrdering Facility: [facility] Address: [address] [place] [address] Performed By: #### 2 4321-2 ####[facility] LABCLIA [id number] [place] [id number] [place] Creatinine [Mass/Vol] 0.79 mg/dL Normal 0.58-0.96 [facility] Comment on above: Order Comment: Miguel cunningham Type: BLOOD SPECIMENOrdering Facility: [facility] Address: [address] [place] [address] Performed By: #### 2 4321-2 ####[facility] LABIA [id number] [place] [address] [place] Creatinine and Glomerular filtration rate.predicted panel (S/P/Bld) 74 mL/min/1.73m??? Normal >=60 [facility] Comment on above: Order Comment: Miguel cunningham Type: BLOOD SPECIMENOrdering Facility: [facility] Address: [address] [place] [address] Result Comment: Kimberley mated Glomerular Filtration Rate (eGFR) is calculated using the 2020 CKD-EPI creatinine equation. This equation utilizes serum creatinine, sex, and age as parameters. The creatinine assay has traceable calibration to isotope dilution-mass spectrometry. Refer to KDIGO guidelines for clinical interpretation. In patients with unstable renal function, e.g. those with acute kidney injury, the eGFR may not accurately reflect actual GFR. Performed By: #### 2 4321-2 ####[facility] LABIA [id number] [place] [address] [place] Glucose [Mass/Vol] 256 mg/dL High 74-99 [facility] Comment on above: Order Comment: Speci men Type: BLOOD SPECIMENOrdering Facility: [facility] Address: [address] [place] [address] Result Comment: The [place] Diabetes Association (ADA) provides guidance for cutoff values for fasting glucose and random glucose. The ADA defines fasting as no caloric intake for at least 8 hours. Fasting plasma glucose results between 100 to 125 mg/dL indicate increased risk for diabetes (prediabetes).Fasting plasma glucose results greater than or equal to 126 mg/dL meet the criteria for diagnosis of diabetes. In the absence of unequivocal hyperglycemia, results should be confirmed by repeat testing. In a patient with classic symptoms of hyperglycemia or hyperglycemic crisis, random plasma glucose results greater than or equal to 200 mg/dL meet the criteria for diagnosis of diabetes.Reference: Standards of Medical Care in Diabetes 2016, [place] Diabetes Association. Diabetes Care. 2016.39(Suppl 1). Performed By: #### 2 4321-2 ####[facility] LABCLIA [id number] [place] [address] [place] Potassium [Moles/Vol] 3.8 mmol/L Normal 3.7-5.1 [facility] Comment on above: Order Comment: Miguel cunningham Type: BLOOD SPECIMENOrdering Facility: [facility] Address: [address] [place] [address] Performed By: #### 2 4321-2 ####[facility] LABIA [id number] [place] [address] [place] Sodium [Moles/Vol] 138 mmol/L Normal 136-144 [facility] Comment on above: Order Comment: Miguel cunningham Type: BLOOD SPECIMENOrdering Facility: [facility] Address: [address] [place] [address] Performed By: #### 2 4321-2 ####[facility] LABIA [id number] [place] [address] [place] Urea nitrogen [Mass/Vol] 14 mg/dL Normal 7-21 [facility] Comment on above: Order Comment: Ana Mi men Type: BLOOD SPECIMENOrdering Facility: [facility] Address: [address] [place] [address] Performed By: #### 2 4321-2 ####[facility] LABIA [id number] [place] [address] [place] CNPNon 11-07-2023 CNPN Normal [facility] CT CHEST WO IVCONon 10-24-19 CT CHEST WO IVCON Normal [facility] Basic metabolic 2000 panelon 10-17-2023 Anion gap [Moles/Vol] 14 mmol/L Normal 8-15 [facility] Comment on above: Order Comment: Speci men Type: BLOOD SPECIMENOrdering Facility: [facility] Address: [address] [place] [address] Performed By: #### 2 4321-2 ####[facility] LABCLIA [id number] [place] [address] [place] Calcium [Mass/Vol] 9.1 mg/dL Normal 8.5-10.2 [facility] Comment on above: Order Comment: Speci men Type: BLOOD SPECIMENOrdering Facility: [facility] Address: [address] [place] [address] Performed By: #### 2 4321-2 ####[facility] LABCLIA [id number] [place] [address] [place] Chloride [Moles/Vol] 99 mmol/L Normal 98-107 [facility] Comment on above: Order Comment: Speci men Type: BLOOD SPECIMENOrdering Facility: [facility] Address: [address] [place] [address] Performed By: #### 2 4321-2 ####[facility] LABCLIA [id number] [place] [address] [place] CO2 [Moles/Vol] 21 mmol/L Low 22-30 [facility] Comment on above: Order Comment: Speci men Type: BLOOD SPECIMENOrdering Facility: [facility] Address: [address] [place] [address] Performed By: #### 2 4321-2 ####[facility] LABCLIA [id number] [place] [address] [place] Creatinine [Mass/Vol] 0.79 mg/dL Normal 0.58-0.96 [facility] Comment on above: Order Comment: Speci men Type: BLOOD SPECIMENOrdering Facility: [facility] Address: [address] [place] [address] Performed By: #### 2 4321-2 ####[facility] LABCLIA [id number] [place] [address] [place] Creatinine and Glomerular filtration rate.predicted panel (S/P/Bld) 74 mL/min/1.73m??? Normal >=60 [facility] Comment on above: Order Comment: Miguel cunningham Type: BLOOD SPECIMENOrdering Facility: [facility] Address: [address] [place] [address] Result Comment: Kimberley mated Glomerular Filtration Rate (eGFR) is calculated using the 2020 CKD-EPI creatinine equation. This equation utilizes serum creatinine, sex, and age as parameters. The creatinine assay has traceable calibration to isotope dilution-mass spectrometry. Refer to KDIGO guidelines for clinical interpretation. In patients with unstable renal function, e.g. those with acute kidney injury, the eGFR may not accurately reflect actual GFR. Performed By: #### 2 4321-2 ####[facility] LABCLIA [id number] [place] [address] [place] Glucose [Mass/Vol] 328 mg/dL High 74-99 [facility] Comment on above: Order Comment: Miguel cunningham Type: BLOOD SPECIMENOrdering Facility: [facility] Address: [address] [place] [address] Result Comment: The [place] Diabetes Association (ADA) provides guidance for cutoff values for fasting glucose and random glucose. The ADA defines fasting as no caloric intake for at least 8 hours. Fasting plasma glucose results between 100 to 125 mg/dL indicate increased risk for diabetes (prediabetes).Fasting plasma glucose results greater than or equal to 126 mg/dL meet the criteria for diagnosis of diabetes. In the absence of unequivocal hyperglycemia, results should be confirmed by repeat testing. In a patient with classic symptoms of hyperglycemia or hyperglycemic crisis, random plasma glucose results greater than or equal to 200 mg/dL meet the criteria for diagnosis of diabetes.Reference: Standards of Medical Care in Diabetes 2016, [place] Diabetes Association. Diabetes Care. 2016.39(Suppl 1). Performed By: #### 2 4321-2 ####[facility] LABCLIA [id number] [place] [address] [place] Potassium [Moles/Vol] 3.9 mmol/L Normal 3.7-5.1 [facility] Comment on above: Order Comment: Speci men Type: BLOOD SPECIMENOrdering Facility: [facility] Address: [address] [place] [address] Performed By: #### 2 4321-2 ####[facility] LABCLIA [id number] [place] [address] [place] Sodium [Moles/Vol] 134 mmol/L Low 136-144 [facility] Comment on above: Order Comment: Speci men Type: BLOOD SPECIMENOrdering Facility: [facility] Address: [address] [place] [address] Performed By: #### 2 4321-2 ####[facility] LABCLIA [id number] [place] [address] [place] Urea nitrogen [Mass/Vol] 18 mg/dL Normal 7-21 [facility] Comment on above: Order Comment: Speci men Type: BLOOD SPECIMENOrdering Facility: [facility] Address: [address] [place] [address] Performed By: #### 2 4321-2 ####[facility] LABIA [id number] [place] [address] [place] CNNURSEon 10-12-2023 CNNURSE Normal [facility] CNPNon 10-11-2023 CNPN Normal [facility] Bilirub Conj SerPl-mCncon Bilirubin.conjugated [Mass/Vol] mg/dL Normal <0.2 [facility] Comment on above: Order Comment: Speci men Type: BLOOD SPECIMENOrdering Facility: [facility] Address: [address] [place] [address] Result Comment: Resu lts may be falsely decreased due to interference from hemolysis. Suggest reorder as clinically indicated. Performed By: #### 1 5152-2, 37248-5 ####[facility] LABCLIA [id number] [place] [address] [place] CNOVon 10-10-2023 CNOV Normal [facility] Comprehensive metabolic 2000 panelon 10-10-2023 Albumin [Mass/Vol] 4.1 g/dL Normal 3.9-4.9 [facility] Comment on above: Order Comment: Speci men Type: BLOOD SPECIMENOrdering Facility: [facility] Address: [address] [place] [address] Performed By: #### 1 5152-2, 00455-1 ####[facility] LABCLIA [id number] [place] [address] [place] ALP [Catalytic activity/Vol] 94 U/L Normal 34-123 [facility] Comment on above: Order Comment: Speci men Type: BLOOD SPECIMENOrdering Facility: [facility] Address: [address] [place] [address] Performed By: #### 1 5152-2, 36758-1 ####[facility] LABCLIA [id number] [place] [address] [place] ALT [Catalytic activity/Vol] 46 U/L High 7-38 [facility] Comment on above: Order Comment: Speci men Type: BLOOD SPECIMENOrdering Facility: [facility] Address: [address] [place] [address] Performed By: #### 1 5152-2, 52485-1 ####[facility] LABCLIA [id number] [place] [id number] [place] Anion gap [Moles/Vol] 16 mmol/L High 8-15 [facility] Comment on above: Order Comment: Speci men Type: BLOOD SPECIMENOrdering Facility: [facility] Address: [address] [place] [address] Performed By: #### 1 5152-2, 61313-2 ####[facility] LABCLIA [id number] [place] [address] [place] AST [Catalytic activity/Vol] 19 U/L Normal 13-35 [facility] Comment on above: Order Comment: Speci men Type: BLOOD SPECIMENOrdering Facility: [facility] Address: [address] [place] [address] Result Comment: Resu lts may be falsely increased due to interference from hemolysis. Suggest reorder as clinically indicated. Performed By: #### 1 5152-2, 94239-9 ####[facility] LABCLIA [id number] [place] [address] [place] Bilirubin [Mass/Vol] 0.6 mg/dL Normal 0.2-1.3 [facility] Comment on above: Order Comment: Speci men Type: BLOOD SPECIMENOrdering Facility: [facility] Address: [address] [place] [address] Performed By: #### 1 5152-2, 30652-5 ####[facility] LABCLIA [id number] [place] [address] [place] Calcium [Mass/Vol] 10.1 mg/dL Normal 8.5-10.2 [facility] Comment on above: Order Comment: Speci men Type: BLOOD SPECIMENOrdering Facility: [facility] Address: [address] [place] [address] Performed By: #### 1 5152-2, 27559-9 ####[facility] LABCLIA [id number] [place] [address] [place] Chloride [Moles/Vol] 89 mmol/L Low 98-107 [facility] Comment on above: Order Comment: Speci men Type: BLOOD SPECIMENOrdering Facility: [facility] Address: [address] [place] [address] Performed By: #### 1 5152-2, 00442-4 ####[facility] LABCLIA [id number] [place] [address] [place] CO2 [Moles/Vol] 21 mmol/L Low 22-30 [facility] Comment on above: Order Comment: Speci men Type: BLOOD SPECIMENOrdering Facility: [facility] Address: [address] [place] [address] Performed By: #### 1 5152-2, 02421-0 ####[facility] LABCLIA [id number] [place] [address] [place] Creatinine [Mass/Vol] 1.08 mg/dL High 0.58-0.96 [facility] Comment on above: Order Comment: Speci men Type: BLOOD SPECIMENOrdering Facility: [facility] Address: [address] [place] [address] Performed By: #### 1 5152-2, 57767-1 ####[facility]ITAL[facility] [id number] [place] [address] [place] Creatinine and Glomerular filtration rate.predicted panel (S/P/Bld) 51 mL/min/1.73m??? Low >=60 [facility] Comment on above: Order Comment: Speci men Type: BLOOD SPECIMENOrdering Facility: [facility] Address: [address] [place] [address] Result Comment: Kimberley mated Glomerular Filtration Rate (eGFR) is calculated using the 2020 CKD-EPI creatinine equation. This equation utilizes serum creatinine, sex, and age as parameters. The creatinine assay has traceable calibration to isotope dilution-mass spectrometry. Refer to KDIGO guidelines for clinical interpretation. In patients with unstable renal function, e.g. those with acute kidney injury, the eGFR may not accurately reflect actual GFR. Performed By: #### 1 5152-2, 55454-9 ####[facility] LABIA [id number] [place] [address] [place] Glucose [Mass/Vol] 534 mg/dL High 74-99 [facility] Comment on above: Order Comment: Speci men Type: BLOOD SPECIMENOrdering Facility: [facility] Address: [address] [place] [address] Result Comment: The [place] Diabetes Association (ADA) provides guidance for cutoff values for fasting glucose and random glucose. The ADA defines fasting as no caloric intake for at least 8 hours. Fasting plasma glucose results between 100 to 125 mg/dL indicate increased risk for diabetes (prediabetes).Fasting plasma glucose results greater than or equal to 126 mg/dL meet the criteria for diagnosis of diabetes. In the absence of unequivocal hyperglycemia, results should be confirmed by repeat testing. In a patient with classic symptoms of hyperglycemia or hyperglycemic crisis, random plasma glucose results greater than or equal to 200 mg/dL meet the criteria for diagnosis of diabetes.Reference: Standards of Medical Care in Diabetes 2016, [place] Diabetes Association. Diabetes Care. 2016.39(Suppl 1). Performed By: #### 1 5152-2, 23133-2 ####[facility] LABCLIA [id number] [place] [address] [place] Potassium [Moles/Vol] 4.0 mmol/L Normal 3.7-5.1 [facility] Comment on above: Order Comment: Speci men Type: BLOOD SPECIMENOrdering Facility: [facility] Address: [address] [place] [address] Performed By: #### 1 5152-2, 39279-2 ####[facility] LABCLIA [id number] [place] [address] [place] Protein [Mass/Vol] 7.2 g/dL Normal 6.3-8.0 [facility] Comment on above: Order Comment: Speci men Type: BLOOD SPECIMENOrdering Facility: [facility] Address: [address] [place] [address] Performed By: #### 1 5152-2, 05996-9 ####[facility] LABCLIA [id number] [place] [address] [place] Sodium [Moles/Vol] 126 mmol/L Low 136-144 [facility] Comment on above: Order Comment: Speci men Type: BLOOD SPECIMENOrdering Facility: [facility] Address: [address] [place] [address] Performed By: #### 1 5152-2, 02923-7 ####[facility] LABCLIA [id number] [place] [address] [place] Urea nitrogen [Mass/Vol] 28 mg/dL High 7-21 [facility] Comment on above: Order Comment: Speci men Type: BLOOD SPECIMENOrdering Facility: [facility] Address: [address] [place] [address] Performed By: #### 1 5152-2, 99174-1 ####[facility] LABCLIA [id number] [place] [address] [place] CNOVon 10-04-2023 CNOV Normal [facility] US CAROTID ARTERIES KWADWO VAS LABon 09-29-2023 US CAROTID ARTERIES KWADWO VAS LAB Normal [facility] CNOVon 09-23-2023 CNOV Normal [facility] ALBUMIN/CREATININE RATIO, UR INEon 09-15-2023 Albumin DL <= 20 mg/L (U) [Mass/Vol] 54.8 mg/L Normal [facility] Comment on above: Order Comment: Speci men Type: URINE SPECIMENOrdering Facility: [facility] Address: [address] [place] [address] Performed By: #### U ACR ####[facility] LABCLIA [id number] [place] [address] [place] Albumin/Creatinine (U) [Mass ratio] 79 mg/g High <30 [facility] Comment on above: Order Comment: Speci men Type: URINE SPECIMENOrdering Facility: [facility] Address: [address] [place] [address] Result Comment: Adul t Male and Female Nephrotic Criteria:<30 mg/g is considered normal to mildly vygnsrfdl22-629 mg/g is considered moderately increased>300 mg/g is considered severely increasedKDIGO. (2013). KDIGO 2012 Clinical Practice Guideline for the Evaluation and Management of Chronic Kidney Disease. Official Journal of the International Society of Nephrology, 3(1), 1-150. Performed By: #### U ACR ####[facility] LABCLIA [id number] [place] [address] [place] Creatinine (U) [Mass/Vol] 69.6 mg/dL Normal 20.0-300.0 [facility] Comment on above: Order Comment: Speci men Type: URINE SPECIMENOrdering Facility: [facility] Address: [address] [place] [address] Performed By: #### U ACR ####[facility] LABCLIA [id number] [place] [address] [place] CBC W Auto Differential pane l (Bld)on 09-15-2023 Basophils (Bld) [#/Vol] 0.04 10*3/uL Normal <0.11 [facility] Comment on above: Order Comment: Speci men Type: BLOOD SPECIMENOrdering Facility: [facility] Address: [address] [place] [address] Performed By: #### 5 7021-8 ####[facility] LABCLIA [id number] [place] [address] [place] Basophils/100 WBC (Bld) 0.6 % Normal C [facility] Comment on above: Order Comment: Speci men Type: BLOOD SPECIMENOrdering Facility: [facility] Address: [address] [place] [address] Performed By: #### 5 7021-8 ####[facility] LABCLIA [id number] [address] [place] Differential cell count method Nom (Bld) Auto Normal [facility] Comment on above: Order Comment: Speci men Type: BLOOD SPECIMENOrdering Facility: [facility] Address: [address] [place] [address] Performed By: #### 5 7021-8 ####[facility] LABCLIA [id number] [place] [address] [place] Eosinophils (Bld) [#/Vol] 0.11 10*3/uL Normal <0.46 [facility] Comment on above: Order Comment: Speci men Type: BLOOD SPECIMENOrdering Facility: [facility] Address: [address] [place] [address] Performed By: #### 5 7021-8 ####[facility] LABCLIA [id number] [place] [address] [place] Eosinophils/100 WBC (Bld) 1.8 % Normal [facility] Comment on above: Order Comment: Speci men Type: BLOOD SPECIMENOrdering Facility: [facility] Address: [address] [place] [address] Performed By: #### 5 7021-8 ####[facility] LABCLIA [id number] [place] [address] [place] Erythrocyte distribution width (RBC) [Ratio] 15.0 % Normal 11.5-15.0 [facility] Comment on above: Order Comment: Speci men Type: BLOOD SPECIMENOrdering Facility: [facility] Address: [address] [place] [address] Performed By: #### 5 7021-8 ####[facility] LABCLIA [id number] [place] [address] [place] Hematocrit (Bld) [Volume fraction] 42.4 % Normal 36.0-46.0 [facility] Comment on above: Order Comment: Speci men Type: BLOOD SPECIMENOrdering Facility: [facility] Address: [address] [place] [address] Performed By: #### 5 7021-8 ####[facility] LABCLIA [id number] [place] [address] [place] Hemoglobin (Bld) [Mass/Vol] 14.0 g/dL Normal 11.5-15.5 [facility] Comment on above: Order Comment: Speci men Type: BLOOD SPECIMENOrdering Facility: [facility] Address: [address] [place] [address] Performed By: #### 5 7021-8 ####[facility] LABCLIA [id number] [place] [address] [place] Immature granulocytes (Bld) [#/Vol] 10*3/uL Normal <0.10 [facility] Comment on above: Order Comment: Speci men Type: BLOOD SPECIMENOrdering Facility: [facility] Address: [address] [place] [address] Performed By: #### 5 7021-8 ####[facility] LABCLIA [id number] [place] [address] [place] Immature granulocytes/100 WBC (Bld) 0.2 % Normal [facility] Comment on above: Order Comment: Speci men Type: BLOOD SPECIMENOrdering Facility: [facility] Address: [address] [place] [address] Performed By: #### 5 7021-8 ####[facility] LABCLIA [id number] [place] [address] [place] Lymphocytes (Bld) [#/Vol] 1.87 10*3/uL Normal 1.00-4.00 [facility] Comment on above: Order Comment: Speci men Type: BLOOD SPECIMENOrdering Facility: [facility] Address: [address] [place] [address] Performed By: #### 5 7021-8 ####[facility] LABCLIA [id number] [place] [address] [place] Lymphocytes/100 WBC (Bld) 29.8 % Normal [facility] Comment on above: Order Comment: Speci men Type: BLOOD SPECIMENOrdering Facility: [facility] Address: [address] [place] [address] Performed By: #### 5 7021-8 ####[facility] LABCLIA [id number] [place] [address] [place] MCH (RBC) [Entitic mass] 32.0 pg Normal 26.0-34.0 [facility] Comment on above: Order Comment: Speci men Type: BLOOD SPECIMENOrdering Facility: [facility] Address: [address] [place] [address] Performed By: #### 5 7021-8 ####[facility] LABIA [id number] [place] [address] [place] MCHC (RBC) [Mass/Vol] 33.0 g/dL Normal 30.5-36.0 [facility] Comment on above: Order Comment: Speci men Type: BLOOD SPECIMENOrdering Facility: [facility] Address: [address] [place] [address] Performed By: #### 5 7021-8 ####[facility] [id number] [place] [address] [place] MCV (RBC) [Entitic vol] 97.0 fL Normal 80.0-100.0 [facility] Comment on above: Order Comment: Speci men Type: BLOOD SPECIMENOrdering Facility: [facility] Address: [address] [place] [address] Performed By: #### 5 7021-8 ####[facility] [id number] [place] [address] [place] Monocytes (Bld) [#/Vol] 0.67 10*3/uL Normal <0.87 [facility] Comment on above: Order Comment: Speci men Type: BLOOD SPECIMENOrdering Facility: [facility] Address: [address] [place] [address] Performed By: #### 5 7021-8 ####[facility] LABIA [id number] [place] [address] [place] Monocytes/100 WBC (Bld) 10.7 % Normal C [facility] Comment on above: Order Comment: Speci men Type: BLOOD SPECIMENOrdering Facility: [facility] Address: [address] [place] [address] Performed By: #### 5 7021-8 ####[facility] LABCLIA [id number] [place] [address] [place] Neutrophils (Bld) [#/Vol] 3.57 10*3/uL Normal 1.45-7.50 [facility] Comment on above: Order Comment: Speci men Type: BLOOD SPECIMENOrdering Facility: [facility] Address: [address] [place] [address] Performed By: #### 5 7021-8 ####[facility] LABCLIA [id number] [place] [address] [place] Neutrophils/100 WBC (Bld) 56.9 % Normal [facility] Comment on above: Order Comment: Speci men Type: BLOOD SPECIMENOrdering Facility: [facility] Address: [address] [place] [address] Performed By: #### 5 7021-8 ####[facility] LABCLIA [id number] [place] [address] [place] Nucleated RBC (Bld) [#/Vol] 10*3/uL Normal <0.01 [facility] Comment on above: Order Comment: Speci men Type: BLOOD SPECIMENOrdering Facility: [facility] Address: [address] [place] [address] Performed By: #### 5 7021-8 ####[facility] LABCLIA [id number] [place] [address] [place] Nucleated RBC/100 WBC (Bld) [Ratio] 0.0 /100 WBC Normal [facility] Comment on above: Order Comment: Speci men Type: BLOOD SPECIMENOrdering Facility: [facility] Address: [address] [place] [address] Performed By: #### 5 7021-8 ####[facility] LABCLIA [id number] [address] [address] [place] Platelet mean volume (Bld) [Entitic vol] 13.6 fL High 9.0-12.7 [facility] Comment on above: Order Comment: Speci men Type: BLOOD SPECIMENOrdering Facility: [facility] Address: [address] [place] [address] Performed By: #### 5 7021-8 ####[facility] LABIA [id number] [place] [address] [place] Platelets (Bld) [#/Vol] 227 10*3/uL Normal 150-400 [facility] Comment on above: Order Comment: Speci men Type: BLOOD SPECIMENOrdering Facility: [facility] Address: [address] [place] [address] Result Comment: Resu lts checked and verified.No clot detected. Performed By: #### 5 7021-8 ####[facility] LABIA [id number] [place] [address] [place] RBC (Bld) [#/Vol] 4.37 10*6/uL Normal 3.90-5.20 [facility] Comment on above: Order Comment: Speci men Type: BLOOD SPECIMENOrdering Facility: [facility] Address: [address] [place] [address] Performed By: #### 5 7021-8 ####[facility] LABIA [id number] [place] [address] [place] WBC (Bld) [#/Vol] 6.27 10*3/uL Normal 3.70-11.00 [facility] Comment on above: Order Comment: Speci men Type: BLOOD SPECIMENOrdering Facility: [facility] Address: [address] [place] [address] Performed By: #### 5 7021-8 ####[facility] LABCLIA [id number] [address] [address] [place] Cholesterol in LDL Direct as say [Mass/Vol]on 09-15-2023 Cholesterol in LDL [Mass/Vol] 44 mg/dL Normal <100 [facility] Comment on above: Order Comment: Speci men Type: BLOOD SPECIMENOrdering Facility: [facility] Address: [address] [place] [id number] Result Comment: <100 mg/dL, Optimal 100-129 mg/dL, Near optimal/above optimal 130-159 mg/dL, Borderline high 160-189 mg/dL, High>189 mg/dL, Very highSecondary prevention optimal LDL Cholesterol levels are recommended to be < 70 mg/dL Performed By: #### 2 4323-8, 24297-8, 02457-7, 3016-3 ####[facility] LABCLIA [id number] [address] [address] [place] Cholesterol in VLDL [Mass/Vol] 114 mg/dL High <30 [facility] Comment on above: Order Comment: Speci men Type: BLOOD SPECIMENOrdering Facility: [facility] Address: [address] [place] [address] Performed By: #### 2 4323-8, 43579-0, 49179-9, 3016-3 ####[facility] LABCLIA [id number] [address] [address] [place] Comprehensive metabolic 2000 panelon 09-15-2023 Albumin [Mass/Vol] 4.1 g/dL Normal 3.9-4.9 [facility] Comment on above: Order Comment: Speci men Type: BLOOD SPECIMENOrdering Facility: [facility] Address: [address] [place] [address] Performed By: #### 2 4323-8, 97575-6, 92676-8, 3016-3 ####[facility]CLIA [id number] [address] [address] [place] ALP [Catalytic activity/Vol] 52 U/L Normal 34-123 [facility] Comment on above: Order Comment: Speci men Type: BLOOD SPECIMENOrdering Facility: [facility] Address: [address] [place] [address] Performed By: #### 2 4323-8, 52086-7, 22922-4, 6-3 ####[facility] LABCLIA [id number] [place] [address] [place] ALT [Catalytic activity/Vol] 33 U/L Normal 7-38 [facility] Comment on above: Order Comment: Speci men Type: BLOOD SPECIMENOrdering Facility: [facility] Address: [address] [place] [address] Performed By: #### 2 4323-8, 21381-3, 48982-5, 6-3 ####[facility] LABCLIA [id number] [place] [address] [place] Anion gap [Moles/Vol] 13 mmol/L Normal 9-18 [facility] Comment on above: Order Comment: Speci men Type: BLOOD SPECIMENOrdering Facility: [facility] Address: [address] [place] [address] Performed By: #### 2 4323-8, 03879-0, 31118-3, 3015-3 ####[facility] LABIA [id number] [place] [address] [place] AST [Catalytic activity/Vol] 26 U/L Normal 13-35 [facility] Comment on above: Order Comment: Speci men Type: BLOOD SPECIMENOrdering Facility: [facility] Address: [address] [place], [place] [id number] Performed By: #### 2 4323-8, 05554-9, 77545-7, 3015-3 ####[facility] LABCLIA [id number] [address] [address] [place] Bilirubin [Mass/Vol] 0.5 mg/dL Normal 0.2-1.3 [facility] Comment on above: Order Comment: Speci men Type: BLOOD SPECIMENOrdering Facility: [facility] Address: [address] [place], [place] [id number] Performed By: #### 2 4323-8, 35526-5, 17433-8, 6-3 ####[facility] LABCLIA [id number] [facility] [address] [address] [place] Calcium [Mass/Vol] 9.7 mg/dL Normal 8.5-10.2 [facility] Comment on above: Order Comment: Speci men Type: BLOOD SPECIMENOrdering Facility: [facility] Address: [address] [place] [address] Performed By: #### 2 4323-8, 98720-0, 73917-8, 6-3 ####[facility] LABCLIA [id number] [facility] [address] [place] Chloride [Moles/Vol] 97 mmol/L Normal 97-105 [facility] Comment on above: Order Comment: Speci men Type: BLOOD SPECIMENOrdering Facility: [facility] Address: [address] [place] [address] Performed By: #### 2 4323-8, 40465-4, 90978-3, 6-3 ####[facility] LABIA [id number] [facility] [place] [id number] [place] CO2 [Moles/Vol] 25 mmol/L Normal 22-30 [facility] Comment on above: Order Comment: Speci men Type: BLOOD SPECIMENOrdering Facility: [facility] Address: [address] [place], [place] [address] Performed By: #### 2 4323-8, 57491-9, 59688-6, 6-3 ####[facility] LABCLIA [id number] [facility] [address] [address] [place] Creatinine [Mass/Vol] 0.76 mg/dL Normal 0.58-0.96 [facility] Comment on above: Order Comment: Miguel cunningham Type: BLOOD SPECIMENOrdering Facility: [facility] Address: [address] [place] [id number] Performed By: #### 2 4323-8, 68540-1, 93760-8, 3016-3 ####[facility] LABCLIA [id number] [place] [id number] [place] Creatinine and Glomerular filtration rate.predicted panel (S/P/Bld) 78 mL/min/1.73m??? Normal >=60 [facility] Comment on above: Order Comment: Miguel octavio Type: BLOOD SPECIMENOrdering Facility: [facility] Address: [address] [place] [address] Result Comment: Kimberley mated Glomerular Filtration Rate (eGFR) is calculated using the 2020 CKD-EPI creatinine equation. This equation utilizes serum creatinine, sex, and age as parameters. The creatinine assay has traceable calibration to isotope dilution-mass spectrometry. Refer to KDIGO guidelines for clinical interpretation. In patients with unstable renal function, e.g. those with acute kidney injury, the eGFR may not accurately reflect actual GFR. Performed By: #### 2 4323-8, 36124-7, 74764-0, 3016-3 ####[facility] LABCLIA [id number] [address] [address] [place] Glucose [Mass/Vol] 304 mg/dL High 74-99 [facility] Comment on above: Order Comment: Miguel cunningham Type: BLOOD SPECIMENOrdering Facility: [facility] Address: [address] [id number] Result Comment: The [place] Diabetes Association (ADA) provides guidance for cutoff values for fasting glucose and random glucose. The ADA defines fasting as no caloric intake for at least 8 hours. Fasting plasma glucose results between 100 to 125 mg/dL indicate increased risk for diabetes (prediabetes).Fasting plasma glucose results greater than or equal to 126 mg/dL meet the criteria for diagnosis of diabetes. In the absence of unequivocal hyperglycemia, results should be confirmed by repeat testing. In a patient with classic symptoms of hyperglycemia or hyperglycemic crisis, random plasma glucose results greater than or equal to 200 mg/dL meet the criteria for diagnosis of diabetes.Reference: Standards of Medical Care in Diabetes 2016, [place] Diabetes Association. Diabetes Care. 2016.39(Suppl 1). Performed By: #### 2 4323-8, 46752-6, 24129-3, 6-3 ####[facility] LABCLIA [id number] [address] [address] [place] Potassium [Moles/Vol] 4.2 mmol/L Normal 3.7-5.1 [facility] Comment on above: Order Comment: Speci men Type: BLOOD SPECIMENOrdering Facility: [facility] Address: [address] [place] [address] Performed By: #### 2 4323-8, 88349-6, 95801-1, 6-3 ####[facility] LABCLIA [id number] [place] [id number] [place] Protein [Mass/Vol] 7.3 g/dL Normal 6.3-8.0 [facility] Comment on above: Order Comment: Speci men Type: BLOOD SPECIMENOrdering Facility: [facility] Address: [address] [place] [address] Performed By: #### 2 4323-8, 54891-8, 47032-0, 3015-3 ####[facility] LABCLIA [id number] [address] [address] [place] Sodium [Moles/Vol] 135 mmol/L Low 136-144 [facility] Comment on above: Order Comment: Speci men Type: BLOOD SPECIMENOrdering Facility: [facility] Address: [address] [place] [address] Performed By: #### 2 4323-8, 82672-1, 09139-8, 3015-3 ####[facility] LABCLIA [id number] [address] [address] [place] Urea nitrogen [Mass/Vol] 17 mg/dL Normal 7-21 [facility] Comment on above: Order Comment: Miguel cunningham Type: BLOOD SPECIMENOrdering Facility: [facility] Address: [address] [place] [address] Performed By: #### 2 4323-8, 11066-3, 81030-5, 3016-3 ####[facility] LABCLIA [id number] [place] [address] [place] HbA1c (Bld)on 09-15-2023 Average glucose Estimated from glycated hemoglobin (Bld) [Mass/Vol] 214 mg/dL Normal [facility] Comment on above: Order Comment: Miguel cunningham Type: BLOOD SPECIMENOrdering Facility: [facility] Address: [address] [place] [address] Result Comment: eAG: (Estimated average glucose) is a calculated value from HgbA1c and is service representative of the average blood glucose level in the last 2-3 month period. Performed By: #### 5 5454-3 ####[facility] LABIA [id number] [address] STATES OF [facility] HbA1c (Bld) [Mass fraction] 9.1 % High 4.3-5.6 [facility] Comment on above: Order Comment: iMguel cunningham Type: BLOOD SPECIMENOrdering Facility: [facility] Address: [address] [place] [address] Result Comment: [place] Diabetes Association guidelines indicate that patients with HgbA1c in the range 5.7-6.4% are at increased risk for development of diabetes, and intervention by lifestyle modification may be beneficial. HgbA1c greater or equal to 6.5% is considered diagnostic of diabetes. Performed By: #### 5 5454-3 ####[facility] LABIA [id number] [place] [address] [place] Lipid 1996 panelon 4 Cholesterol [Mass/Vol] 183 mg/dL Normal <200 Cl [facility] Comment on above: Order Comment: Miguel men Type: BLOOD SPECIMENOrdering Facility: [facility] Address: [address] [place] [address] Result Comment: <200 mg/dL, Desirable 200-239 mg/dL, Borderline high>239 mg/dL, High Performed By: #### 2 4323-8, 59089-6, 72279-9, 3016-3 ####[facility] LABCLIA [id number] [address] [address] [place] Cholesterol in HDL [Mass/Vol] 25 mg/dL Low >39 [facility] Comment on above: Order Comment: Speci men Type: BLOOD SPECIMENOrdering Facility: [facility] Address: [address] [place] [address] Result Comment: 40-5 9 mg/dL, Acceptable>59 mg/dL, High: Negative risk factor for coronary heart disease<40 mg/dL, Low: Positive risk factor for coronary heart disease Performed By: #### 2 4323-8, 06189-6, 70066-8, 3016-3 ####[facility] LABCLIA [id number] [address] [place] Cholesterol in LDL [Mass/Vol] Normal [facility] Comment on above: Order Comment: Speci men Type: BLOOD SPECIMENOrdering Facility: [facility] Address: [address] [place] [address] Result Comment: Unab le to calculate due to increased Triglycerides. See LDL-Chol, Direct. Performed By: #### 2 4323-8, 58014-0, 14440-1, 3016-3 ####[facility] LABCLIA [id number] [place] [id number] [place] Cholesterol in LDL/Cholesterol in HDL [Mass ratio] Normal [facility] Comment on above: Order Comment: Speci men Type: BLOOD SPECIMENOrdering Facility: [facility] Address: [address] [place] [address] Result Comment: Unab le to calculate due to elevated Triglycerides.Reference:1. National Cholesterol Education Program ATP III Guideline At-A-Glance Quick Desk Reference: National Heart, Lung, and Blood Lafe. National Institutes of Health. 2001: NIH Publication No. 01-3305.2. An International Atherosclerosis Society position paper: global recommendations for the management of dyslipidemia: executive summary, Atherosclerosis. 2014: 232(2):410-413. Performed By: #### 2 4323-8, 70196-0, 18647-8, 3016-3 ####[facility] LABCLIA [id number] [address] [address] [place] Cholesterol in VLDL [Mass/Vol] Normal [facility] Comment on above: Order Comment: Speci men Type: BLOOD SPECIMENOrdering Facility: [facility] Address: [address] [place] [address] Result Comment: Unab le to calculate due to increased Triglycerides. See LDL-Chol, Direct. Performed By: #### 2 4323-8, 00524-7, 19161-1, 3016-3 ####[facility] LABCLIA [id number] [place] [id number] [place] Cholesterol non HDL [Mass/Vol] 158 mg/dL High <130 [facility] Comment on above: Order Comment: Speci men Type: BLOOD SPECIMENOrdering Facility: [facility] Address: [address] [place] [address] Result Comment: <130 mg/dL, Optimal 130-159 mg/dL, Near optimal/above optimal 160-189 mg/dL, Borderline high 190-219 mg/dL, High>219 mg/dL, Very highSecondary prevention optimal non HDL Cholesterol levels are recommended to be <100 mg/dL Performed By: #### 2 4323-8, 92042-9, 35125-6, 3016-3 ####[facility] LABCLIA [id number] [address] [address] [place] Cholesterol.total/Roz sterol in HDL [Mass ratio] 7.32 {ratio} High <5.10 [facility] Comment on above: Order Comment: Speci men Type: BLOOD SPECIMENOrdering Facility: [facility] Address: [address] [place] [address] Performed By: #### 2 4323-8, 29200-3, 73095-6, 3016-3 ####[facility] LABCLIA [id number] [place] [address] [place] FASTING TIME 14 hrs Normal [facility] Comment on above: Order Comment: Speci men Type: BLOOD SPECIMENOrdering Facility: [facility] Address: [address] [place] [address] Performed By: #### 2 4323-8, 31548-2, 64963-7, 6-3 ####[facility] LABCLIA [id number] [place] [address] [place] Triglyceride [Mass/Vol] 527 mg/dL High <150 [facility] Comment on above: Order Comment: Speci men Type: BLOOD SPECIMENOrdering Facility: [facility] Address: [address] [place] [address] Result Comment: <150 mg/dL, Normal 150-199 mg/dL, Borderline high 200-499 mg/dL, High>499 mg/dL, Very high Performed By: #### 2 4323-8, 81698-1, 73564-5, 6-3 ####[facility] LABCLIA [id number] [place] [address] [place] TSH SerPl-aCncon 09-15-2023 TSH Qn 2.580 m[IU]/L Normal 0.270-4.200 [facility] Comment on above: Order Comment: Speci men Type: BLOOD SPECIMENOrdering Facility: [facility] Address: [address] [place] [address] Performed By: #### 2 4323-8, 52350-7, 28012-1, 6-3 ####[facility] LABCLIA [id number] [place] [id number] [place] CT CHEST WO IVCONon 11-23-19 [facility] No Panel Informationon 10-12 [facility] DXA-AXIAL SKELETONon 023 LOWEST T-SCORE -1.9 [facility] CBC W Auto Differential pane l (Bld)on 07-01-2022 Basophils (Bld) [#/Vol] 0.06 10*3/uL <0.11 k/uL [facility] Basophils/100 WBC (Bld) 1.0 % C [facility] Differential cell count method Nom (Bld) Auto [facility] Eosinophils (Bld) [#/Vol] 0.13 10*3/uL <0.46 k/uL [facility] Eosinophils/100 WBC (Bld) 2.1 % [facility] Erythrocyte distribution width (RBC) [Ratio] 14.2 % 11.5 - 15.0 % [facility] Hematocrit (Bld) [Volume fraction] 39.7 % 36.0 - 46.0 % [facility] Hemoglobin (Bld) [Mass/Vol] 13.3 g/dL 11.5 - 15.5 g/dL [facility] Immature granulocytes (Bld) [#/Vol] <0.10 k/uL [facility] Immature granulocytes/100 WBC (Bld) 0.3 % [facility] Lymphocytes (Bld) [#/Vol] 1.80 10*3/uL 1.00 - 4.00 k/uL [facility] Lymphocytes/100 WBC (Bld) 28.7 % [facility] MCH (RBC) [Entitic mass] 33.1 pg 26.0 - 34.0 pg [facility] MCHC (RBC) [Mass/Vol] 33.5 g/dL 30.5 - 36.0 g/dL [facility] MCV (RBC) [Entitic vol] 98.8 fL 80.0 - 100.0 fL [facility] Monocytes (Bld) [#/Vol] 0.64 10*3/uL <0.87 k/uL [facility] Monocytes/100 WBC (Bld) 10.2 % C [facility] Neutrophils (Bld) [#/Vol] 3.62 10*3/uL 1.45 - 7.50 k/uL [facility] Neutrophils/100 WBC (Bld) 57.7 % [facility] Nucleated RBC (Bld) [#/Vol] 0.03 10*3/uL High <0.01 k/uL [facility] Nucleated RBC/100 WBC (Bld) [Ratio] 0.5 /100 WBC [facility] Platelet mean volume (Bld) [Entitic vol] 10.7 fL 9.0 - 12.7 fL [facility] Platelets (Bld) [#/Vol] 216 10*3/uL 150 - 400 k/uL [facility] RBC (Bld) [#/Vol] 4.02 10*6/uL 3.90 - 5.2 0 m/uL [facility] WBC (Bld) [#/Vol] 6.27 10*3/uL 3.70 - 11. 00 k/uL [facility] Comprehensive metabolic 2000 panelon 07-01-2022 Albumin [Mass/Vol] 4.1 g/dL 3.9 - 4.9 g/dL [facility] ALP [Catalytic activity/Vol] 41 U/L 34 - 123 U/L [facility] ALT [Catalytic activity/Vol] 30 U/L 7 - 38 U/L [facility] Anion gap [Moles/Vol] 10 mmol/L 9 - 18 mmol/L [facility] AST [Catalytic activity/Vol] 23 U/L 13 - 35 U/L [facility] Bilirubin [Mass/Vol] 0.5 mg/dL 0.2 - 1 .3 mg/dL [facility] Calcium [Mass/Vol] 9.7 mg/dL 8.5 - 10. 2 mg/dL [facility] Chloride [Moles/Vol] 100 mmol/L 97 - 10 5 mmol/L [facility] CO2 [Moles/Vol] 27 mmol/L 22 - 30 mmol/L [facility] Creatinine [Mass/Vol] 1.08 mg/dL High 0.58 - 0.96 mg/dL [facility] Estimated Glomerular Filtration Rate 51 mL/min/1.73m Low >=60 mL/min/1.73m [facility] Glucose [Mass/Vol] 192 mg/dL High 74 - 99 mg/dL [facility] Potassium [Moles/Vol] 4.0 mmol/L 3.7 - 5.1 mmol/L [facility] Protein [Mass/Vol] 7.0 g/dL 6.3 - 8.0 g/dL [facility] Sodium [Moles/Vol] 137 mmol/L 136 - 144 mmol/L [facility] Urea nitrogen [Mass/Vol] 23 mg/dL High 7 - 21 mg/dL [facility] HbA1c (Bld)on 07-01-2022 Average glucose Estimated from glycated hemoglobin (Bld) [Mass/Vol] 171 mg/dL [facility] HbA1c (Bld) [Mass fraction] 7.6 % High 4.3 - 5.6 % [facility] LIPID PANEL, NONFASTINGon Cholesterol [Mass/Vol] 142 mg/dL <200 mg/dL [facility] HDL Cholesterol, Nonfasting 21 mg/dL Low >39 mg/dL [facility] LDL Cholesterol, Nonfasting [facility] LDL/HDL Ratio, Nonfasting [facility] Non HDL Cholesterol, Nonfasting 121 mg/dL <130 mg/dL [facility] Total Chol/HDL Ratio, Nonfasting 6.76 mg/dL High <5.10 mg/dL [facility] Triglycerides, Nonfasting 459 mg/dL High <150 mg/dL [facility] VLDL Cholesterol, Nonfasting [facility] TSH BLDon 07-01-2022 TSH Qn 2.450 m[IU]/L 0.270 - 4.200 mIU/L [facility] Vital Signs Date Time Vital Sign Value Performing Clinician Faci lity 08-22-2024 13:24-0400 Body temperature 96.9 [degF] Dr. Kierra Santiago MD Work Phone: [facility] 08-22-2024 13:24-0400 Diastolic blood pressure 63 mm[Hg] Dr. Kierra Santiago MD Work Phone: [facility] 08-22-2024 13:24-0400 Heart rate 50 /min Dr. Kierra Santiago MD Work Phone: [facility] 08-22-2024 13:24-0400 Respiratory rate 16 /min Dr. Kierra Santiago MD Work Phone: [facility] 08-22-2024 13:24-0400 SaO2% (BldA) [Mass fraction] 99 % Dr. Kierra Santiago MD Work Phone: [facility] 08-22-2024 13:24-0400 Systolic blood pressure 175 mm[Hg] Dr. Kierra Santiago MD Work Phone: [facility] 08-22-2024 12:11-0400 Body height 160.[address] Kierra Satniago MD Work Phone: [facility] 08-22-2024 12:11-0400 Body mass index (BMI) [Ratio] 26.2 kg/m2 Dr. Kierra Santiago MD Work Phone: [facility] 08-22-2024 12:11-0400 Body weight 67.[address] Kierra Santiago MD Work Phone: [facility] 07-17-2024 10:06-0400 Body mass index (BMI) [Ratio] 25.4 kg/m2 Anastasiia Colón [employer] Work Phone: [facility] 07-17-2024 10:06-0400 Body weight 64 kg Anastasiia Colón [employer]IED [employer]ICER Work Phone: [facility] 07-17-2024 10:06-0400 Diastolic blood pressure 65 mm[Hg] Anastasiia Colón [employer]IED [employer] OFFICER Work Phone: [facility] 07-17-2024 10:06-0400 Heart rate 60 /min Anastasiia Colón [employer]IED [employer] OFFICER Work Phone: [facility] 07-17-2024 10:06-0400 Respiratory rate 16 /min Anastasiia Colón [employer]IED [employer]ATION OFFICER Work Phone: [facility] 07-17-2024 10:06-0400 Systolic blood pressure 131 mm[Hg] Anastasiia Colón [employer]IED [employer] OFFICER Work Phone: [facility] 06-20-2024 09:55-0500 Body height 160.[address] Kierra Santiago MD Work Phone: [facility] 06-20-2024 09:55-0500 Body mass index (BMI) [Ratio] 24.7 kg/m2 Dr. Kierra Santiago MD Work Phone: [facility] 06-20-2024 09:55-0500 Body weight 63.[address] Kierra Santiago MD Work Phone: 9(335)335-874730 [place] [address] 06-20-2024 09:55-0500 Diastolic blood pressure 63 mm[Hg] Dr. Kierra Santiago MD Work Phone: 8(239)286-481730 [place] [address] 06-20-2024 09:55-0500 Heart rate 62 /min Dr. Kierra Santiago MD Work Phone: 9(958)730-203530 [place] [address] 06-20-2024 09:55-0500 Respiratory rate 18 /min Dr. Kierra Santiago MD Work Phone: 0(638)655-707930 [place] [address] 06-20-2024 09:55-0500 SaO2% (BldA) [Mass fraction] 98 % Dr. Kierra Santiago MD Work Phone: 0(427)388-350830 [place] [address] 06-20-2024 09:55-0500 Systolic blood pressure 143 mm[Hg] Dr. Kierra Santiago MD Work Phone: 3(589)693-972230 [place] [address] 06-12-2024 08:53-0500 Body temperature 97.4 [degF] Dr. Kierra Santiago MD Work Phone: 4(487)411-955330 [place] [address] 06-12-2024 08:53-0500 Body weight 64.[address] Kierra Santiago MD Work Phone: 1(247)178-575230 [place] [address] 06-12-2024 08:53-0500 Diastolic blood pressure 54 mm[Hg] Dr. Kierra Santiago MD Work Phone: 7(780)630-424630 [place] [address] 06-12-2024 08:53-0500 Heart rate 57 /min Dr. Kierra Santiago MD Work Phone: 6(865)271-434030 [place] [address] 06-12-2024 08:53-0500 Respiratory rate 14 /min Dr. Kierra Santiago MD Work Phone: 5(595)384-074430 [place] [address] 06-12-2024 08:53-0500 SaO2% (BldA) [Mass fraction] 97 % Dr. Kierra Santiago MD Work Phone: 8(564)387-150530 [place] [address] 06-12-2024 08:53-0500 Systolic blood pressure 128 mm[Hg] Dr. Kierra Santiago MD Work Phone: [facility] 06-04-2024 11:34-0500 Body height 158.8 cm Terrence Jane MD Work Phone: [facility] 06-04-2024 11:34-0500 Body mass index (BMI) [Ratio] 25.74 kg/m2 Terrence Jane MD Work Phone: [facility] 06-04-2024 11:34-0500 Body weight 64.86 kg Terrence Jane MD Work Phone: [facility] 06-04-2024 11:34-0500 Diastolic blood pressure 64 mm[Hg] Terrence Jane MD Work Phone: [facility] 06-04-2024 11:34-0500 Heart rate 63 /min Terrence Jane MD Work Phone: [facility] 06-04-2024 11:34-0500 Respiratory rate 12 /min Terrence aJne MD Work Phone: [facility] 06-04-2024 11:34-0500 SaO2% (BldA) [Mass fraction] 97 % Terrence Jane MD Work Phone: [facility] 06-04-2024 11:34-0500 Systolic blood pressure 142 mm[Hg] Terrence Jane MD Work Phone: [facility] 05-14-2024 13:32-0500 Body mass index (BMI) [Ratio] 25.7 kg/m2 Dr. Kierra Santiago MD Work Phone: [facility] 05-14-2024 13:32-0500 Body weight 65.[address] Kierra Santiago MD Work Phone: [facility] 05-14-2024 13:32-0500 Diastolic blood pressure 66 mm[Hg] Dr. Kierra Santiago MD Work Phone: [facility] 05-14-2024 13:32-0500 Heart rate 56 /min Dr. Kierra Santiago MD Work Phone: [facility] 05-14-2024 13:32-0500 Respiratory rate 18 /min Dr. Kierra Santiago MD Work Phone: [facility] 05-14-2024 13:32-0500 SaO2% (BldA) [Mass fraction] 97 % Dr. Kierra Santiago MD Work Phone: [facility] 05-14-2024 13:32-0500 Systolic blood pressure 146 mm[Hg] Dr. Kierra Santiago MD Work Phone: [facility] 05-08-2024 08:43-0500 Diastolic blood pressure 54 mm[Hg] Mary Kay Delgado DO Work Phone: [facility] 05-08-2024 08:43-0500 Heart rate 55 /min Mary Kay Delgado DO Work Phone: [facility] 05-08-2024 08:43-0500 SaO2% (BldA) [Mass fraction] 98 % Mary Kay Delgado DO Work Phone: [facility] 05-08-2024 08:43-0500 Systolic blood pressure 117 mm[Hg] Mary Kay Delgado DO Work Phone: [facility] 04-23-2024 14:34-0500 Body height 158.8 cm Terrence Jane MD Work Phone: [facility] 04-23-2024 14:34-0500 Body mass index (BMI) [Ratio] 25.74 kg/m2 Terrence Jane MD Work Phone: [facility] 04-23-2024 14:34-0500 Body weight 64.86 kg Terrence Jane MD Work Phone: [facility] 04-23-2024 14:34-0500 Diastolic blood pressure 56 mm[Hg] Terrence Jane MD Work Phone: [facility] 04-23-2024 14:34-0500 Heart rate 69 /min Terrence Jane MD Work Phone: [facility] 04-23-2024 14:34-0500 Respiratory rate 12 /min Terrence Jane MD Work Phone: [facility] 04-23-2024 14:34-0500 SaO2% (BldA) [Mass fraction] 100 % Terrence Jane MD Work Phone: [facility] 04-23-2024 14:34-0500 Systolic blood pressure 178 mm[Hg] Terrence Jane MD Work Phone: [facility] 04-17-2024 12:11-0500 Heart rate 61 /min Anastasiia Colón APRN.CERTIFIED JUVENILE PROBATION OFFICER Work Phone: [facility] 04-08-2024 10:49-0500 Body temperature 98.1 [degF] Dr. Kierra Santiago MD Work Phone: [facility] 04-08-2024 10:49-0500 Diastolic blood pressure 67 mm[Hg] Dr. Kierra Santiago MD Work Phone: [facility] 04-08-2024 10:49-0500 Heart rate 70 /min Dr. Kierra Santiago MD Work Phone: [facility] 04-08-2024 10:49-0500 Respiratory rate 18 /min Dr. Kierra Santiago MD Work Phone: [facility] 04-08-2024 10:49-0500 SaO2% (BldA) [Mass fraction] 96 % Dr. Kierra Santiago MD Work Phone: [facility] 04-08-2024 10:49-0500 Systolic blood pressure 132 mm[Hg] Dr. Kierra Santiago MD Work Phone: [facility] 04-08-2024 06:00-0500 Body mass index (BMI) [Ratio] 24.5 kg/m2 Dr. Kierra Santiago MD Work Phone: [facility] 04-08-2024 06:00-0500 Body weight 62.[address] Kierra Santiago MD Work Phone: 7(107)[phone] [place] [address] 04-04-2024 10:00-0500 Body temperature 98.3 [degF] Dr. Kierra Santiago MD Work Phone: 9(112)289-377259 [place] [address] 04-04-2024 10:00-0500 Diastolic blood pressure 62 mm[Hg] Dr. Kierra Santiago MD Work Phone: 0(454)954-725159 [place] [address] 04-04-2024 10:00-0500 Heart rate 62 /min Dr. Kierra Santiago MD Work Phone: 0(877)876-362259 [place] [address] 04-04-2024 10:00-0500 Respiratory rate 16 /min Dr. Kierra Santiago MD Work Phone: 4(495)454-931330 [place] [address] 04-04-2024 10:00-0500 SaO2% (BldA) [Mass fraction] 94 % Dr. Kierra Santiago MD Work Phone: 8(603)113-918159 [place] [address] 04-04-2024 10:00-0500 Systolic blood pressure 143 mm[Hg] Dr. Kierra Santiago MD Work Phone: 1(038)629-200659 [place] [address] 04-04-2024 08:05-0500 Body mass index (BMI) [Ratio] 24.4 kg/m2 Dr. Kierra Santiago MD Work Phone: 9(719)903-799459 [place] [address] 04-04-2024 08:05-0500 Body weight 62.[address] Kierra Santiago MD Work Phone: 0(022)201-507359 [place] [address] 02-23-2024 09:22-0400 Body mass index (BMI) [Ratio] 24.96 kg/m2 Anastasiia Colón APRN.CERTIFIED JUVENILE PROBATION OFFICER Work Phone: [facility] 02-23-2024 09:22-0400 Body weight 62.9 kg Anastasiia Colón APRN.CERTIFIED JUVENILE PROBATION OFFICER Work Phone: 9(517)983-804463 [place] [address] 02-23-2024 09:22-0400 Diastolic blood pressure 65 mm[Hg] Anastasiia Colón APRN.CNS Work Phone: [facility] 02-23-2024 09:22-0400 Heart rate 77 /min Anastasiia Colón EDGE KITTER.CERTIFIED JUVENILE PROBATION OFFICER Work Phone: [facility] 02-23-2024 09:22-0400 Respiratory rate 16 /min Anastasiia Colón EDGE KITTER.CERTIFIED JUVENILE PROBATION OFFICER Work Phone: [facility] 02-23-2024 09:22-0400 Systolic blood pressure 96 mm[Hg] Anastasiia Colón EDGE KITTER.CERTIFIED JUVENILE PROBATION OFFICER Work Phone: [facility] 01-11-2024 16:55-0400 Body mass index (BMI) [Ratio] 27.06 kg/m2 Kierra Santiago MD Work Phone: [facility] 01-11-2024 16:55-0400 Body temperature 99.5 [degF] Kierra Santiago MD Work Phone: [facility] 01-11-2024 16:55-0400 Body weight 68.2 kg Kierra Santiago MD Work Phone: [facility] 01-11-2024 16:55-0400 Diastolic blood pressure 68 mm[Hg] Kierra Santiago MD Work Phone: [facility] 01-11-2024 16:55-0400 Heart rate 58 /min Kierra Sanitago MD Work Phone: [facility] 01-11-2024 16:55-0400 Respiratory rate 18 /min Kierra Santiago MD Work Phone: [facility] 01-11-2024 16:55-0400 SaO2% (BldA) [Mass fraction] 94 % Kierra Santiago MD Work Phone: [facility] 01-11-2024 16:55-0400 Systolic blood pressure 124 mm[Hg] Kierra Santiago MD Work Phone: [facility] 12-31-2023 11:51-0400 Body mass index (BMI) [Ratio] 28.09 kg/m2 Krislyn Aberegg PA Work Phone: [facility] 12-31-2023 11:51-0400 Body temperature 98.71 [degF] Krislyn Aberegg PA Work Phone: [facility] 12-31-2023 11:51-0400 Body weight 70.8 kg Krislyn Aberegg PA Work Phone: [facility] 12-31-2023 11:51-0400 Heart rate 62 /min Krislyn Aberegg PA Work Phone: [facility] 12-31-2023 11:51-0400 Respiratory rate 20 /min Krislyn Aberegg PA Work Phone: [facility] 12-31-2023 11:51-0400 SaO2% (BldA) [Mass fraction] 89 % Krislyn Aberegg PA Work Phone: [facility] 12-11-2023 09:58-0400 Body mass index (BMI) [Ratio] 27.54 kg/m2 Krislyn Aberegg PA Work Phone: [facility] 12-11-2023 09:58-0400 Body temperature 101.1 [degF] Krislyn Aberegg PA Work Phone: [facility] 12-11-2023 09:58-0400 Body weight 69.4 kg Krislyn Aberegg PA Work Phone: [facility] 12-11-2023 09:58-0400 Diastolic blood pressure 84 mm[Hg] Krislyn Aberegg PA Work Phone: [facility] 12-11-2023 09:58-0400 Heart rate 98 /min Krislyn Aberegg PA Work Phone: [facility] 12-11-2023 09:58-0400 Respiratory rate 18 /min Krislyn Aberegg PA Work Phone: [facility] 12-11-2023 09:58-0400 SaO2% (BldA) [Mass fraction] 95 % Krislyn Aberegg PA Work Phone: [facility] 12-11-2023 09:58-0400 Systolic blood pressure 126 mm[Hg] Saray Acosta PA Work Phone: [facility] 11-18-2023 11:03-0400 Body height 158.8 cm Joelle Hritz EDGE KITTER.REPORT SPECIALIST Work Phone: [facility] 11-18-2023 11:03-0400 Body mass index (BMI) [Ratio] 26.82 kg/m2 Joelle Hritz EDGE KITTER.REPORT SPECIALIST Work Phone: [facility] 11-18-2023 11:03-0400 Body weight 67.59 kg Joelle Hritz EDGE KITTER.REPORT SPECIALIST Work Phone: [facility] 11-18-2023 11:03-0400 Diastolic blood pressure 78 mm[Hg] Joelle Hritz EDGE KITTER.REPORT SPECIALIST Work Phone: [facility] 11-18-2023 11:03-0400 Heart rate 102 /min Joelle Hritz EDGE KITTER.REPORT SPECIALIST Work Phone: [facility] 11-18-2023 11:03-0400 Systolic blood pressure 132 mm[Hg] Joelle Hritz EDGE KITTER.REPORT SPECIALIST Work Phone: [facility] 11-14-2023 09:33-0400 Diastolic blood pressure 79 mm[Hg] Anastasiia Colón EDGE KITTER.CERTIFIED JUVENILE PROBATION OFFICER Work Phone: [facility] 11-14-2023 09:33-0400 Systolic blood pressure 150 mm[Hg] Anastasiia Colón EDGE KITTER.CERTIFIED JUVENILE PROBATION OFFICER Work Phone: [facility] 11-14-2023 09:31-0400 Body mass index (BMI) [Ratio] 26.28 kg/m2 Anastasiia Colón EDGE KITTER.CERTIFIED JUVENILE PROBATION OFFICER Work Phone: [facility] 11-14-2023 09:31-0400 Body weight 66.22 kg Anastasiia Colón EDGE KITTER.CERTIFIED JUVENILE PROBATION OFFICER Work Phone: [facility] 11-14-2023 09:31-0400 Heart rate 97 /min Anastasiia Colón EDGE KITTER.CERTIFIED JUVENILE PROBATION OFFICER Work Phone: [facility] 11-14-2023 09:31-0400 Respiratory rate 16 /min Anastasiia Colón EDGE KITTER.CERTIFIED JUVENILE PROBATION OFFICER Work Phone: [facility] 10-10-2023 11:44-0400 Body mass index (BMI) [Ratio] 25.38 kg/m2 Anastasiia Colón EDGE KITTER.CERTIFIED JUVENILE PROBATION OFFICER Work Phone: [facility] 10-10-2023 11:44-0400 Body weight 63.96 kg Anastasiia Colón EDGE KITTER.CERTIFIED JUVENILE PROBATION OFFICER Work Phone: [facility] 10-10-2023 11:44-0400 Diastolic blood pressure 71 mm[Hg] Anastasiia Colón EDGE KITTER.CERTIFIED JUVENILE PROBATION OFFICER Work Phone: [facility] 10-10-2023 11:44-0400 Heart rate 118 /min Anastasiia Colón EDGE KITTER.CERTIFIED JUVENILE PROBATION OFFICER Work Phone: [facility] 10-10-2023 11:44-0400 Respiratory rate 16 /min Anastasiia Colón EDGE KITTER.CERTIFIED JUVENILE PROBATION OFFICER Work Phone: [facility] 10-10-2023 11:44-0400 Systolic blood pressure 106 mm[Hg] Anastasiia Colón EDGE KITTER.CERTIFIED JUVENILE PROBATION OFFICER Work Phone: [facility] 10-04-2023 09:36-0400 Diastolic blood pressure 65 mm[Hg] Mary Kay Delgado DO Work Phone: [facility] 10-04-2023 09:36-0400 Systolic blood pressure 108 mm[Hg] Mary Kay Delgado DO Work Phone: [facility] 10-04-2023 09:30-0400 Heart rate 79 /min Mary Kay Delgado DO Work Phone: [facility] 10-04-2023 09:30-0400 SaO2% (BldA) [Mass fraction] 96 % Mary Kay Delgado DO Work Phone: [facility] 06-07-2023 09:02-0500 Body weight 68.95 kg Anastasiia Colnó EDGE KITTER.CERTIFIED JUVENILE PROBATION OFFICER Work Phone: [facility] 06-07-2023 09:02-0500 Diastolic blood pressure 74 mm[Hg] Anastasiia Colón EDGE KITTER.CERTIFIED JUVENILE PROBATION OFFICER Work Phone: [facility] 06-07-2023 09:02-0500 Heart rate 97 /min Anastasiia Colón EDGE KITTER.CERTIFIED JUVENILE PROBATION OFFICER Work Phone: [facility] 06-07-2023 09:02-0500 SaO2% (BldA) [Mass fraction] 96 % Anastasiia Colón EDGE KITTER.CERTIFIED JUVENILE PROBATION OFFICER Work Phone: [facility] 06-07-2023 09:02-0500 Systolic blood pressure 126 mm[Hg] Anastasiia Colón EDGE KITTER.CERTIFIED JUVENILE PROBATION OFFICER Work Phone: [facility] 03-15-2023 10:48-0500 Diastolic blood pressure 78 mm[Hg] Lelo Barrie EDGE KITTER.REPORT SPECIALIST Work Phone: [facility] 03-15-2023 10:48-0500 Heart rate 74 /min Lelo Barrie EDGE KITTER.REPORT SPECIALIST Work Phone: [facility] 03-15-2023 10:48-0500 SaO2% (BldA) [Mass fraction] 97 % Lelo Barrie EDGE KITTER.REPORT SPECIALIST Work Phone: [facility] 03-15-2023 10:48-0500 Systolic blood pressure 134 mm[Hg] Lelo Barrie EDGE KITTER.REPORT SPECIALIST Work Phone: [facility] 02-04-2023 16:35-0400 Body weight 69.85 kg Kierra Santiago MD Work Phone: [facility] 02-04-2023 16:35-0400 Diastolic blood pressure 70 mm[Hg] Kierra Santiago MD Work Phone: [facility] 02-04-2023 16:35-0400 Heart rate 52 /min Kierra Santiago MD Work Phone: [facility] 02-04-2023 16:35-0400 SaO2% (BldA) [Mass fraction] 97 % Kierra Santiago MD Work Phone: [facility] 02-04-2023 16:35-0400 Systolic blood pressure 134 mm[Hg] Kierra Santiago MD Work Phone: [facility] 12-22-2022 10:28-0400 Body weight 69.85 kg Sheryl Eric EDGE KITTER.REPORT SPECIALIST Work Phone: [facility] 12-22-2022 10:28-0400 Diastolic blood pressure 60 mm[Hg] Sheryl Eric EDGE KITTER.REPORT SPECIALIST Work Phone: [facility] 12-22-2022 10:28-0400 Heart rate 81 /min Sheryl Eric EDGE KITTER.REPORT SPECIALIST Work Phone: [facility] 12-22-2022 10:28-0400 SaO2% (BldA) [Mass fraction] 96 % Sheryl Eric EDGE KITTER.REPORT SPECIALIST Work Phone: [facility] 12-22-2022 10:28-0400 Systolic blood pressure 124 mm[Hg] Sheryl Eric EDGE KITTER.REPORT SPECIALIST Work Phone: [facility] 12-01-2022 11:00-0400 Diastolic blood pressure 75 mm[Hg] Kailee Johnson MD Work Phone: [facility] 12-01-2022 11:00-0400 Heart rate 75 /min Kailee Johnson MD Work Phone: [facility] 12-01-2022 11:00-0400 SaO2% (BldA) [Mass fraction] 97 % Kailee Johnson MD Work Phone: [facility] 12-01-2022 11:00-0400 Systolic blood pressure 146 mm[Hg] Kailee Johnson MD Work Phone: [facility] 10-12-2022 11:09-0400 Diastolic blood pressure 78 mm[Hg] Mary Kay Delgado DO Work Phone: [facility] 10-12-2022 11:09-0400 Heart rate 79 /min Mary Kay Delgado DO Work Phone: [facility] 10-12-2022 11:09-0400 SaO2% (BldA) [Mass fraction] 96 % Mary Kay Delgado DO Work Phone: [facility] 10-12-2022 11:09-0400 Systolic blood pressure 124 mm[Hg] Mary Kay Delgado DO Work Phone: [facility] 08-02-2022 09:38-0400 Body weight 71.67 kg Anastasiia Colón EDGE KITTER.CERTIFIED JUVENILE PROBATION OFFICER Work Phone: [facility] 08-02-2022 09:38-0400 Diastolic blood pressure 62 mm[Hg] Anastasiia Colón EDGE KITTER.CERTIFIED JUVENILE PROBATION OFFICER Work Phone: [facility] 08-02-2022 09:38-0400 Heart rate 76 /min Anastasiia Colón EDGE KITTER.CERTIFIED JUVENILE PROBATION OFFICER Work Phone: [facility] 08-02-2022 09:38-0400 Respiratory rate 16 /min Anastasiia Colón EDGE KITTER.CERTIFIED JUVENILE PROBATION OFFICER Work Phone: [facility] 08-02-2022 09:38-0400 Systolic blood pressure 130 mm[Hg] Anastasiia Colón EDGE KITTER.CERTIFIED JUVENILE PROBATION OFFICER Work Phone: [facility] 07-01-2022 08:21-0500 Body height 158.8 cm Anastasiia Colón EDGE KITTER.CERTIFIED JUVENILE PROBATION OFFICER Work Phone: [facility] 07-01-2022 08:21-0500 Body weight 71.67 kg Anastasiia Colón EDGE KITTER.CERTIFIED JUVENILE PROBATION OFFICER Work Phone: [facility] 07-01-2022 08:21-0500 Diastolic blood pressure 66 mm[Hg] Anastasiia Colón EDGE KITTER.CERTIFIED JUVENILE PROBATION OFFICER Work Phone: [facility] 07-01-2022 08:21-0500 Heart rate 67 /min Anastasiia Colón EDGE KITTER.CERTIFIED JUVENILE PROBATION OFFICER Work Phone: [facility] 07-01-2022 08:21-0500 Respiratory rate 16 /min Anastasiia Colón EDGE KITTER.CERTIFIED JUVENILE PROBATION OFFICER Work Phone: [facility] 07-01-2022 08:21-0500 SaO2% (BldA) [Mass fraction] 96 % Anastasiia Colón EDGE KITTER.CERTIFIED JUVENILE PROBATION OFFICER Work Phone: [facility] 07-01-2022 08:21-0500 Systolic blood pressure 118 mm[Hg] Anastasiia Cloón EDGE KITTER.CERTIFIED JUVENILE PROBATION OFFICER Work Phone: [facility] Encounters Encounter Date Encounter Type Care Provider Facility Start: 10-10-2024 ambulatory Kierra Santiago Facilit y:[facility] Start: 10-06-2024 Encounter for prepro cedural laboratory examination Laura Crowell [facility] Start: 10-02-[address] Sury Blanca DPM -Cardiovascular Services Work Phone: Start: 10-02-2024 ambulatory Kierra Santiago Facilit y:[facility] Start: 10-01-2024 End: 10-01-[address] Kierra Santiago MD Work Phone: [facility] Work Phone: Start: 10-01-2024 End: 10-01-2024 Patient encounter procedure Laura Crowell PA -Cat Scan WC [facility] Work Phone: Start: 10-01-2024 End: 10-01-2024 ambulatory Kierra Santiago Facility:[facility] Start: 09-11-2024 End: 09-11-2024 [facility]: [facility] Comment on above: Factor V deficiency (HCC) (Primary Dx) Start: 09-11-2024 End: 09-11-2024 ambulatory KIERRA SANTIAGO Facility:[facility] Start: 09-06-2024 End: 09-29-2024 Discharged Recurring Self Referred -Nutritional Servic es Work Phone: Start: 09-06-2024 End: 09-29-[address] Kierra Santiago MD Work Phone: [facility] Work Phone: Start: 08-28-2024 ambulatory Kierra D [place] Facilit y:[facility] Start: 08-28-2024 Non-patient / Non-visit Dr. Shaan hung MD -[facility] Start: 08-28-2024 End: 08-28-2024 Patient encounter procedure Laura SEGURA -Cardiovascu lar Services Work Phone: Start: 08-28-2024 End: 08-28-2024 ambulatory Laura Crowell Facility:[facility] Start: 08-22-2024 ambulatory Kierra D [place] Facilit y:[facility] Start: 08-22-2024 Non-patient / Non-visit Robb Cummins nd DO -[facility] Start: 08-22-2024 End: 08-22-2024 Admission to same day surgery center Robb Giron DO -Endoscopy Work Phone: Start: 08-22-2024 End: 08-22-2024 ambulatory Kierra Santiago Facility:[facility] Start: 08-21-2024 End: 08-21-2024 Anticoagulant drug monitoring [facility] Work Phone: [facility] [place] Comment on above: Factor V deficiency (HCC) (Primary Dx) Start: 08-21-2024 End: 08-21-2024 ambulatory KIERRA JAMILAS Facility:[facility] Start: 08-15-2024 End: 08-15-[address] Kierra Santiago MD Work Phone: [facility] Work Phone: Start: 08-15-2024 End: 08-15-2024 Patient encounter procedure Dominick Harrell CENTRAL LAB TECHNICIAN-C -Laboratory Work Phone: Start: 08-15-2024 End: 08-15-2024 ambulatory Kierra Santiago Facility:[facility] Start: 08-06-2024 End: 08-07-2024 Refill Kierra Santiago MD Work Phone: [facility] [place] Comment on above: Refill Request Start: 07-31-2024 End: 07-31-2024 Telephone encounter Kierra Santiago MD Work Phone: [facility] Comment on above: Orders (poc protime) Start: 07-31-2024 End: 07-31-2024 ambulatory KIERRA SANTIAGO Facility:[facility] Start: 07-31-2024 End: 07-31-2024 Anticoagulant drug monitoring [facility] Work Phone: [facility] Comment on above: Factor V deficiency (HCC) (Primary Dx) Start: 07-25-2024 End: 07-25-[address] Kierra Santiago MD Work Phone: [facility] Work Phone: Start: 07-25-2024 End: 07-25-2024 Patient encounter procedure Dominick Harrell CENTRAL LAB TECHNICIAN-C -Laboratory Work Phone: Start: 07-25-2024 End: 07-25-2024 ambulatory [facility] Facility:[facility] Start: 07-17-2024 End: 07-17-2024 Anticoagulant drug monitoring [facility] Work Phone: [facility] Comment on above: Factor V deficiency (HCC) (Primary Dx) Refill Request Start: 07-17-2024 End: 07-17-2024 ambulatory KIERRA SANTIAGO Facility:[facility] Start: 07-17-2024 End: 07-17-2024 Office outpatient visit 25 minutes Anastasiia Colón APRN.CNS Work Phone: [facility] [place] Comment on above: 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, without long-term current use of insulin (HCC) (Primary Dx); Hypokalemia; Other acute sinusitis; Decreased hearing of both ears; Subclinical hypothyroidism; History of anemia; S/P transmetatarsal amputation of foot, right (HCC); Stage 3b chronic kidney disease (HCC) Start: 07-11-2024 End: 07-11-2024 Home visit Kierra Santiago MD Work Phone: [facility] [place] Comment on above: 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 Kierra Santiago MD Work Phone: [facility] Work Phone: Start: 07-10-2024 End: 07-10-2024 Patient encounter procedure Dominick YUN -Laboratory Work Phone: Start: 07-10-2024 End: 07-10-2024 [facility] Start: 07-05-2024 End: 07-05-2024 [facility] Work [facility]: [facility] Comment on above: Factor V deficiency (HCC) (Primary Dx) Start: 07-05-2024 End: 07-05-2024 ambulatory KIERRA SANTIAGO Facility:[facility] Start: 06-28-2024 End: 06-28-2024 [facility] Start: 06-28-2024 End: 06-29-2024 [facility] Work [facility]: [facility] Comment on above: Factor V deficiency (HCC) (Primary Dx) Refill Request Start: 06-20-2024 End: 06-20-2024 ambulatory Kierra Santiago [facility] Start: 06-20-2024 End: 06-20-2024 Patient encounter procedure Dominick YUN -[facility] Work Phone: Start: 06-19-2024 End: 06-19-2024 Patient encounter procedure Ese Hillman [facility] Work Phone: Start: 06-19-2024 End: 06-20-2024 ambulatory Ese Hillman Facility:[facility] Start: 06-14-2024 End: 06-14-2024 [facility] Work [facility]: [facility] Comment on above: Factor V deficiency (HCC) (Primary Dx) Start: 06-14-2024 End: 06-14-2024 ambulatory KIERRA SANTIAGO Facility:[facility] Start: 06-13-2024 End: 06-13-2024 Patient encounter procedure Laura SEGURA -Laboratory, Specimen Work Phone: Start: 06-12-2024 End: 06-12-2024 Patient encounter procedure Laura SEGURA -[facility] Work Phone: Start: 06-12-2024 End: 06-13-2024 ambulatory Laura Crowell Facility:[facility] Start: 06-04-2024 End: 06-04-2024 ambulatory TERRENCE JANE Facility:[facility] Start: 06-04-2024 End: 06-04-2024 Patient encounter procedure Terrence Jane MD Work Phone: Cardiology Comment on above: Pure hypercholestero lemia (Primary Dx); Primary hypertension; Factor V deficiency (HCC); Acute on chronic congestive heart failure, unspecified heart failure type (HCC); Atrial fibrillation, unspecified type (HCC) Start: 05-29-2024 End: 05-29-2024 Telephone encounter Mary Kay Delgado DO Work Phone: Vascular Surgery Comment on above: Appointment Start: 05-28-2024 ambulatory Shaan Rojas Facility:[facility] Start: 05-28-2024 Non-patient / Non-visit Dr. Shaan hung MD -[facility] Start: 05-28-2024 End: 05-28-[address] Shaan Rojas MD -Cardiovascu lar Services Work Phone: Start: 05-28-2024 End: 05-28-2024 ambulatory Shaan Rojas Facility:[facility] Start: 05-23-2024 End: 05-23-2024 Telephone encounter Kierra Santiago MD Work Phone: [facility] [place] Comment on above: Anticoagulation Start: 05-21-2024 End: 05-21-2024 Telephone encounter Terrence Jane MD Work Phone: Cardiology Comment on above: Results Start: 05-16-2024 End: 05-18-2024 Telephone encounter Kierra Santiago MD Work Phone: [facility] [place] Comment on above: Patient Update; Anti coagulation Start: 05-14-2024 End: 05-14-[address] Roly Herrera MD -[facility] Work Phone: Start: 05-14-2024 End: 05-16-2024 Refill Kierra Santiago MD Work Phone: [facility] [place] Comment on above: Refill Request Symptoms Start: 05-12-2024 End: 05-12-2024 ambulatory Nallely An RN NURSE MAINTENANCE [employer]OP MANAGER Comment on above: Hypertension Start: 05-09-2024 End: 05-09-2024 Telephone encounter Kierra Santiago MD Work Phone: [facility] [place] Comment on above: Patient Update; Anti coagulation Start: 05-08-2024 End: 05-08-2024 Patient encounter procedure Mary Kay Delgado DO Work Phone: Vascular Surgery Comment on above: Occlusion and stenos is of unspecified carotid artery (Primary Dx) Start: 05-08-2024 End: 05-08-2024 ambulatory MARY KAY DELGADO Facility:[facility] Start: 05-03-2024 End: 05-19-2024 Telephone encounter Kierra Santiago MD Work Phone: [facility] [place] Comment on above: Home Care Management Refill Request (SEE RX NOTES) Start: 05-01-2024 End: 05-03-2024 Telephone encounter Kierra Santiago MD Work Phone: Internal Medicine [place] Comment on above: Anticoagulation Start: 04-30-2024 End: 06-25-2024 Telephone encounter Kierra Santiago MD Work Phone: Family Medicine [place] Comment on above: Patient Update Start: 04-27-2024 End: 05-01-2024 Telephone encounter Kierra Santiago MD Work Phone: [facility] [place] Comment on above: Forms ( certificat e plan of care 04/09/24) Start: 04-23-2024 End: 04-23-2024 Patient encounter procedure Terrence Jane MD Work Phone: Cardiology Comment on above: Aortic valve disorde r (Primary Dx); Pure hypercholesterolemia; Primary hypertension; Heart murmur Start: 04-23-2024 End: 04-23-2024 ambulatory KIERRA SANTIAGO Facility:[facility] Start: 04-23-2024 End: 04-24-2024 Telephone encounter Kierra Santiago MD Work Phone: Internal Medicine [place] Comment on above: [facility] HH - INR message Start: 04-18-2024 End: 04-20-2024 Telephone encounter Kierra Santiago MD Work Phone: [facility] [place] Comment on above: Anticoagulation Start: 04-17-2024 End: 04-17-2024 ambulatory KIERRA SANTIAGO Facility:[facility] Start: 04-17-2024 End: 04-17-2024 Office outpatient visit 25 minutes Anastasiia Colón APRN.CNS Work Phone: Internal Medicine [place] Comment on above: Critical limb ischem ia of right lower extremity (HCC) (Primary Dx); S/P transmetatarsal amputation of foot, right (HCC); S/P femoral-popliteal bypass surgery; Acute gastric ulcer, unspecified whether gastric ulcer hemorrhage or perforation present; Duodenal ulcer Start: 04-16-2024 End: 04-16-2024 Telephone encounter Kierra Santiago MD Work Phone: Internal Medicine [place] Comment on above: Anticoagulation Physical [facility] Start: 04-13-2024 End: 04-13-2024 Telephone encounter Kierra Santiago MD Work Phone: [facility] [place] Comment on above: Orders Start: 04-11-2024 End: 04-12-2024 Telephone encounter Kierra Santiago MD Work Phone: Internal Medicine [place] Comment on above: Question Start: 04-09-2024 End: 04-09-2024 Telephone encounter Kierra Santiago MD Work Phone: Internal [facility] [place] Comment on above: Home Care Management Start: 04-09-2024 End: 04-09-2024 ambulatory KIERRA SANTIAGO Facility:[facility] Start: 04-06-2024 End: 04-10-2024 ambulatory Kierra Santiago MD Work Phone: [facility] [place] Start: 04-05-2024 End: 04-05-2024 Telephone encounter Kierra Santiago MD Work Phone: [facility] [place] Comment on above: Home Health Orders Start: 04-05-2024 Non-patient / Non-visit Laura Crowell [place] -[facility] Start: 04-05-2024 ambulatory Laura Crowell Facility:[facility] Start: 04-04-2024 ambulatory Kierra Irma Valadezampas Facilit y:[facility] Start: 04-04-2024 Non-patient / Non-visit Robb Cummins nd DO -[facility] Start: 04-04-2024 End: 04-04-2024 Admission to same day surgery center Robb Chelsea DO -Endoscopy Work Phone: Start: 04-04-2024 End: 04-04-2024 ambulatory Robb Chelsea Facility:[facility] Start: 04-02-2024 Non-patient / Non-visit Robbkwaku Cummins ga DO -[facility] Start: 03-27-2024 Non-patient / Non-visit Laura Crowell [facility] Start: 03-23-2024 Non-patient / Non-visit Laura Crowell [place] -[facility] Start: 03-19-2024 ambulatory Laura Crowell Facility:[facility] Start: 03-19-2024 End: 04-08-2024 Evaluation and management of inpatient Dr. Jason Smith MD -Transitional Care Unit Start: 03-13-2024 End: 03-13-2024 ambulatory Kierra Irma Talampas [place] Start: 03-12-2024 ambulatory Kierra Irma Talampas Facilit y:[facility] Start: 03-09-2024 ambulatory Kierra Irma Talampas Facilit y:[facility] Start: 03-08-2024 ambulatory Kierra D Talampas Facilit y:[facility] Start: 03-08-2024 ambulatory Kierra D Talampas Facilit y:[facility] Start: 03-08-2024 End: 03-19-2024 Evaluation and management of inpatient Suresh Merida Facility:[facility] Start: 03-07-2024 End: 03-09-2024 Telephone encounter Kierra Santiago MD Work Phone: [facility] [place] Comment on above: Patient Update Start: 03-01-2024 End: 03-01-2024 Anticoagulant drug monitoring [facility] Work Phone: [facility] [place] Comment on above: Factor V deficiency (HCC) (Primary Dx) Start: 03-01-2024 End: 03-01-2024 ambulatory KIERRA D TALAMPAS Facility:[facility] Start: 03-01-2024 End: 03-01-2024 ambulatory Kierra D Talampas Facility:[facility] Start: 02-29-2024 End: 03-03-2024 Telephone encounter Kierra Santiago MD Work Phone: Internal Medicine [place] Comment on above: Patient Update Start: 02-27-2024 End: 02-27-2024 ambulatory KIERRA D TALAMPAS Facility:[facility] Start: 02-27-2024 End: 02-27-2024 Anticoagulant drug monitoring [facility] Work Phone: [facility] [place] Comment on above: Factor V deficiency (HCC) (Primary Dx) Start: 02-24-2024 End: 02-24-2024 Telephone encounter Anastasiia Colón APRN.CERTIFIED JUVENILE PROBATION OFFICER Work Phone: Internal Medicine [place] Start: 02-23-2024 End: 02-23-2024 Telephone encounter Anastasiia Colón APRN.CERTIFIED JUVENILE PROBATION OFFICER Work Phone: Internal Medicine [place] Comment on above: Anticoagulation Start: 02-23-2024 End: 02-23-2024 ambulatory KIERRA D TALAMPAS Facility:[facility] Start: 02-23-2024 End: 02-23-2024 Office outpatient visit 25 minutes Anatsasiia Colón APRN.CNS Work Phone: Internal Medicine [place] Comment on above: Critical limb ischem ia of right lower extremity (HCC) (Primary Dx); Generalized weakness; Acute occlusion of artery; Peripheral vascular disease (HCC); History of femoropopliteal bypass; Dry gangrene (HCC); Pressure injury of right heel, stage 2 (HCC); Factor V deficiency (HCC); Type 2 diabetes mellitus with diabetic polyneuropathy, without long-term current use of insulin (HCC); Factor 5 Leiden mutation, heterozygous (HCC) Start: 02-23-2024 End: 02-23-2024 ambulatory KIERRA D ALLYSONAMPAS Facility:[facility] Start: 02-14-2024 End: 02-14-2024 ambulatory Kierra D Pamela [place] Start: 02-13-2024 End: 02-13-2024 Telephone encounter Kierra Santiago MD Work Phone: [facility] [place] Comment on above: [facility] PT POC Start: 02-09-2024 End: 02-13-2024 Telephone encounter Kierra Santiago MD Work Phone: [facility] [place] Comment on above: Home Health Point of Care Results Start: 02-08-2024 ambulatory Kierra D Allysonampas Facilit y:[facility] Start: 02-08-2024 End: 02-08-2024 Telephone encounter Kierra Santiago MD Work Phone: [facility] [place] Comment on above: Home Health Orders Start: 02-08-2024 End: 02-08-2024 ambulatory Kierra D Talampas Facility:[facility] Start: 01-27-2024 End: 02-08-2024 Evaluation and management of inpatient Kierra D Talampas Facility:[facility] Start: 01-20-2024 End: 01-20-2024 ambulatory Roly Herrera [place] Start: 01-18-2024 End: 01-27-2024 ambulatory Kierra D Allysonampruss Facility[place] Start: 01-18-2024 End: 01-27-2024 Evaluation and management of inpatient Kierra D Talampas Facility:[facility] Start: 01-14-2024 End: 01-14-2024 Patient Outreach Nancy Albert RN Work Phone: [employer] [employer] Comment on above: Transition Of Care S tarted Weekly phone contact (Recurring) for Transitional Care Management Start: 01-13-2024 End: 01-13-2024 Emergency department patient visit Kierragely Santiago Facility:[facility] Start: 01-13-2024 End: 01-13-2024 ambulatory KIERRA Irma SANTIAGO Facility:[facility] Start: 01-13-2024 End: 01-13-2024 Patient encounter procedure Nataliia Rehman APRN.REPORT SPECIALIST Work Phone: [facility] Comment on above: Pain (Primary Dx) Start: 01-11-2024 End: 01-11-2024 Transitional care manage srvc 14 day discharge Kierra Santiago MD Work Phone: Internal Medicine [place] Comment on above: Acute on chronic con gestive heart failure, unspecified heart failure type (HCC) (Primary Dx); Type 2 diabetes mellitus with diabetic polyneuropathy, without long-term current use of insulin (HCC); Hypokalemia; Leg cramp; Ulcer of right foot, limited to breakdown of skin (HCC); Callus of foot; Dependent rubor Start: 01-11-2024 End: 01-11-2024 ambulatory KIERRA Irma SANTIAGO Facility:[facility] Start: 01-06-2024 End: 01-06-2024 Patient Outreach Nancy Alebrt RN Work Phone: [facility] [employer] [facility] Comment on above: Initial phone contac t for Transitional Care Management Start: 01-05-2024 End: 01-05-2024 ambulatory KIERRA D PAMELA Facility:[facility] Start: 01-05-2024 End: 01-05-2024 Anticoagulant drug monitoring [facility] Work Phone: [facility] [place] Comment on above: Factor V deficiency (HCC) (Primary Dx) Start: 01-02-2024 ambulatory Kierra D Allysonampas Facilit y:[facility] Start: 12-31-2023 ambulatory Kierra D Allysonampas Facilit y:[facility] Start: 12-31-2023 End: 01-03-2024 Evaluation and management of inpatient Kierra Santiago Facility:[facility] Start: 12-31-2023 End: 12-31-2023 [facility] Start: 12-31-2023 End: 12-31-2023 Patient encounter procedure Saray SEGURA Work Phone: [facility] Comment on above: Hypoxia (Primary Dx) Start: 12-30-2023 End: 12-30-2023 Refill Kierra Santiago MD Work Phone: Internal Medicine [place] Comment on above: Refill Request Start: 12-27-2023 End: 12-27-2023 Telephone encounter Kierra Santiago MD Work Phone: Internal Medicine [place] Comment on above: Labs needed? Start: 12-27-2023 End: 12-27-2023 [facility] Start: 12-12-2023 Telephone encounter Saray SEGURA Work Phone: [facility] Comment on above: Results Start: 12-12-2023 End: 12-12-2023 ambulatory SARAY ACOSTA Facility:[facility] Start: 12-12-2023 End: 12-12-2023 Subsequent hospital visit by physician Kiley [facility] [place] Work Phone: Radiology Comment on above: Acute cough [R05.1] Start: 12-11-2023 End: 12-11-2023 [facility] Start: 12-11-2023 End: 12-11-2023 Patient encounter procedure Saray SEGURA Work Phone: [facility] Comment on above: Acute cough (Primary Dx); URI, acute Start: 12-08-2023 End: 12-08-2023 ambulatory KIERRA SANTIAGO Facility:[facility] Start: 12-08-2023 End: 12-08-2023 Anticoagulant drug monitoring Antico[facility] Work Phone: [facility] [place] Comment on above: Factor V deficiency (HCC) (Primary Dx) Start: 11-30-2023 End: 11-30-2023 ambulatory KIERRA JAMILRUSS Facility:[facility] Start: 11-30-2023 End: 11-30-2023 Subsequent hospital visit by physician [facility] Work Phone: Radiology Comment on above: Elevated alanine ami notransferase (ALT) level [R74.01] Start: 11-18-2023 End: 11-18-2023 [facility] Facility:[facility] Start: 11-18-2023 End: 11-18-2023 Office outpatient new 30 minutes Joelle Barreto EDGE KITTER.REPORT SPECIALIST Work Phone: [facility] Comment on above: Elevated alanine ami notransferase (ALT) level (Primary Dx) Start: 11-14-2023 End: 11-14-2023 [facility] Facility:[facility] Start: 11-14-2023 End: 11-14-2023 Patient encounter procedure Nurse Card Admin [facility] Work Phone: Cardiology Comment on above: Chest pain, unspecif ied type Start: 11-14-2023 End: 11-14-2023 [facility] Facility:[facility] Start: 11-14-2023 End: 11-14-2023 Office outpatient visit 25 minutes Anastasiiacornelius Salters EDGE KITTER.CERTIFIED JUVENILE PROBATION OFFICER Work Phone: Internal Medicine [place] Comment on above: Chest pain, unspecif ied type (Primary Dx); Encounter for immunization; Type 2 diabetes mellitus with hyperglycemia, without long-term current use of insulin (HCC); Lung nodules; Transaminitis; Factor 5 Leiden mutation, heterozygous (HCC) Start: 11-10-2023 End: 11-10-2023 Anticoagulant drug monitoring Anticoag [facility] Work Phone: [facility] [place] Comment on above: Factor V deficiency (HCC) (Primary Dx) Start: 11-10-2023 End: 11-10-2023 [facility] Facility:[facility] Start: 11-08-2023 ambulatory Nurse Card Adm in [facility] Work Phone: Cardiology Comment on above: Stress Test Instruct ions for 11/14/23 Start: 11-08-2023 E-mail encounter etienne crow caregiver Nurse Card Admin [facility] Work Phone: Cardiology Start: 11-07-2023 Telephone encounter Anastasiia Nuñez yaritza EDGE KITTER.CERTIFIED JUVENILE PROBATION OFFICER Work Phone: Internal Medicine [place] Comment on above: Results Start: 11-06-2023 Orders Only Anastasiia Eldon EDGE KITTER.CERTIFIED JUVENILE PROBATION OFFICER Work Phone: [facility] [place] Comment on above: 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, without long-term current use of insulin (HCC) (Primary Dx) Start: 11-04-2023 Refill Kierra adler MD Work Phone: Internal Medicine [place] Comment on above: Refill Request Start: 10-24-2023 End: 10-24-2023 ambulatory KIERRA D TALAMPAS Facility:[facility] Start: 10-24-2023 End: 10-24-2023 Subsequent hospital visit by physician [facility] ([facility]) Work Phone: Cat Scan Comment on above: Lung nodules [R91.8] Start: 10-17-2023 End: 10-17-2023 ambulatory KIERRA D TALAMPAS Facility:[facility] Start: 10-13-2023 End: 10-13-2023 ambulatory KIERRA D TALAMPAS Facility:[facility] Start: 10-13-2023 End: 10-13-2023 Anticoagulant drug monitoring Anticoag [facility] Work Phone: [facility] [place] Comment on above: Factor V deficiency (HCC) (Primary Dx) Start: 10-12-2023 End: 10-12-2023 Nursing evaluation of patient and report Suresh Varela RN Work Phone: Endocrinology Comment on above: Uncontrolled type 2 diabetes mellitus with hyperglycemia (HCC) Start: 10-12-2023 End: 10-12-2023 ambulatory KIERRA D TALAMPAS Facility:[facility] Start: 10-11-2023 Telephone encounter Joshua Koch MD Work Phone: Family Medicine [place] Comment on above: high blood sugars Patient Update Start: 10-10-2023 End: 10-10-2023 ambulatory KIERRA D ALLYSONAMPAS Facility:[facility] Start: 10-10-2023 End: 10-10-2023 ambulatory KIERRA D TALAMP Facility:[facility] Start: 10-10-2023 End: 10-10-2023 Office outpatient visit 25 minutes Anastasiia Colón APRN.CERTIFIED JUVENILE PROBATION OFFICER Work Phone: Internal Medicine [place] Comment on above: Chest pain, unspecif ied type (Primary Dx); Lung nodules; Transaminitis; Atrial fibrillation, unspecified type (HCC); Type 2 diabetes mellitus with hyperglycemia, without long-term current use of insulin (HCC); Factor 5 Leiden mutation, heterozygous (HCC); Mid back pain on left side Start: 10-05-2023 Refill Kierra adler MD Work Phone: Internal Medicine [place] Comment on above: Refill Request Start: 10-04-2023 End: 10-04-2023 ambulatory KIERRA D ALLYSONAMPRUSS Facility:[facility] Start: 10-04-2023 End: 10-04-2023 Patient encounter procedure Mary Kay Delgado DO Work Phone: Vascular Surgery Comment on above: Bilateral carotid ar jaime stenosis (Primary Dx) Start: 09-29-2023 End: 09-29-2023 [facility] Start: 09-23-2023 End: 09-23-2023 Patient encounter procedure Nataliia Rehman APRN.REPORT SPECIALIST Work Phone: [facility] Comment on above: Left arm numbness (P rimary Dx) Start: 09-23-2023 End: 09-23-2023 ambulatory KIERRA D TALAMPAS Facility:[facility] Start: 09-15-2023 End: 09-15-2023 Anticoagulant drug monitoring [facility] Work Phone: [facility] [place] Comment on above: Factor V deficiency (HCC) (Primary Dx) Start: 09-15-2023 End: 09-15-2023 ambulatory KIERRA SANTIAGO Facility:[facility] Start: 08-18-2023 End: 08-18-2023 [facility] [place] Comment on above: Factor V deficiency (HCC) (Primary Dx) Start: 07-21-2023 Telephone encounter Kierra angulo MD Work Phone: [facility] [place] Comment on above: Orders (protime) Start: 07-21-2023 End: 07-21-2023 [facility] Work [facility]: [facility] [place] Comment on above: Factor V deficiency (HCC) (Primary Dx) Start: 07-14-2023 Refill Kierra adler MD Work Phone: Internal Medicine [place] Comment on above: Refill Request Start: 06-30-2023 End: 06-30-2023 [facility] Work [facility]: [facility] [place] Comment on above: Factor V deficiency (HCC) (Primary Dx) Start: 06-16-2023 End: 06-16-2023 [facility] Work Phone: [facility] [place] Comment on above: Factor V deficiency (HCC) (Primary Dx) Start: 06-07-2023 End: 06-07-2023 Office outpatient visit 25 minutes Anastasiia Colón APRN.CNS Work Phone: Internal Medicine [place] Comment on above: Type 2 diabetes mingo itus with hyperglycemia, without long-term current use of insulin (HCC) (Primary Dx); Peripheral vascular disease, unspecified (HCC); Factor V deficiency (HCC); Factor 5 Leiden mutation, heterozygous (HCC); Type 2 diabetes mellitus with diabetic polyneuropathy, without long-term current use of insulin (HCC); Encounter for immunization; Facial lesion; Other acute sinusitis; Mixed hyperlipidemia; Subclinical hypothyroidism Start: 06-02-2023 End: 06-02-2023 [facility] Work Phone: [facility] [place] Comment on above: Factor V deficiency (HCC) (Primary Dx) Start: 05-02-2023 ambulatory Alice Mcneill RN NURSE O N CALL Comment on above: Pain, Sinus Start: 03-30-2023 End: 03-30-2023 Anticoagulant drug monitoring [facility] Work Phone: [facility] [place] Comment on above: Factor V deficiency (HCC) (Primary Dx) Start: 03-15-2023 End: 03-15-2023 Office outpatient visit 25 minutes Lelo Sood EDGE KITTER.REPORT SPECIALIST Work Phone: Vascular Surgery Comment on above: Bilateral carotid ar jaime stenosis (Primary Dx); Primary hypertension; Elevated HDL; Factor 5 Leiden mutation, heterozygous (HCC) Start: 02-24-2023 End: 02-24-2023 [facility] Work Phone: [facility] [place] Comment on above: Factor V deficiency (HCC) (Primary Dx) Start: 02-15-2023 Telephone encounter Kierra angulo MD Work Phone: [facility] [place] Comment on above: Info for diabetic sh oes Start: 02-04-2023 End: 02-04-2023 Office outpatient visit 40 minutes Kierra Santiago MD Work Phone: [facility] [place] Comment on above: 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, without long-term current use of insulin (HCC) (Primary Dx); Stenosis of carotid artery, unspecified laterality; History of carotid endarterectomy; Primary hypertension; Factor V deficiency (HCC); Encounter for long-term current use of medication; Mixed hyperlipidemia; Chronic cough; Need for influenza vaccination; Encounter for immunization Start: 01-27-2023 End: 01-27-2023 Anticoagulant drug monitoring [facility] Work Phone: [facility] [place] Comment on above: Factor V deficiency (HCC) (Primary Dx) Start: 01-20-2023 End: 01-20-2023 Anticoagulant drug monitoring [facility] Work Phone: [facility] [place] Comment on above: Factor V deficiency (HCC) (Primary Dx) Start: 01-05-2023 Refill Kierra adler MD Work Phone: [facility] [place] Comment on above: Refill Request Start: 12-22-2022 End: 12-22-2022 Patient encounter procedure Sheryl Reyes APRN.REPORT SPECIALIST Work Phone: [facility] Medicine [place] Comment on above: Stress and adjustmen t reaction (Primary Dx); Sleep disturbance; Type 2 diabetes mellitus with diabetic polyneuropathy, without long-term current use of insulin (HCC) Start: 12-20-2022 Telephone encounter Kierra angulo MD Work Phone: [facility] [place] Comment on above: Patient Question (He r 3 mo appointment) Refill Request Start: 12-16-2022 End: 12-16-2022 [facility] [place] Comment on above: Factor V deficiency (HCC) (Primary Dx) Start: 12-02-2022 ambulatory Kierra adler MD Work Phone: [facility] Comment on above: Allied Health Visit (Medication Adherence Outreach/) Start: 12-01-2022 End: 12-01-2022 Patient encounter procedure Kailee Johnson MD Work Phone: Vascular Surgery Comment on above: Carotid stenosis, as ymptomatic, bilateral (Primary Dx) Start: 11-22-2022 End: 11-22-2022 Subsequent hospital visit by physician [facility] ([facility]) Work Phone: Cat Scan Comment on above: Lung nodules [R91.8] Start: 11-18-2022 End: 11-18-2022 [facility] [place] Comment on above: Factor V deficiency (HCC) (Primary Dx) Start: 10-28-2022 End: 10-28-2022 [facility] Work [facility] [place] Comment on above: Factor V deficiency (HCC) Start: 10-12-2022 End: 10-12-2022 Patient encounter procedure Mary Kay D Luis DO Work Phone: Vascular Surgery Comment on above: Stenosis of carotid artery, unspecified laterality; History of carotid endarterectomy; History of transient ischemic attack (TIA); Stenosis of left carotid artery Start: 10-12-2022 End: 10-12-2022 Subsequent hospital visit by physician [facility] ([facility]) Work Phone: Cat Scan Comment on above: Occlusion and stenos is of unspecified carotid artery [I65.29] Start: 09-30-2022 End: 09-30-2022 Anticoagulant drug monitoring Antico[facility] Work Phone: [facility] [place] Comment on above: Factor V deficiency (HCC) Start: 08-31-2022 Telephone encounter Anastasiia vigil EDGE KITTER.CERTIFIED JUVENILE PROBATION OFFICER Work Phone: Internal Medicine [place] Comment on above: Results Start: 08-24-2022 Telephone encounter Kierra angulo MD Work Phone: [facility] Medicine [place] Comment on above: Patient Question; An ticoagulation Start: 08-18-2022 End: 08-18-2022 Subsequent hospital visit by physician Bone Density [facility] Work Phone: Radiology Comment on above: Screening for osteop orosis [Z13.820] Start: 08-10-2022 Telephone encounter Anastasiia vigil EDGE KITTER.CERTIFIED JUVENILE PROBATION OFFICER Work Phone: [facility] Medicine [place] Comment on above: Results (Carotid ult rasound) Start: 08-02-2022 Telephone encounter Anastasiia vigil EDGE KITTER.CERTIFIED JUVENILE PROBATION OFFICER Work Phone: [facility] Medicine [place] Comment on above: Anticoagulation Start: 08-02-2022 End: 08-02-2022 Office outpatient visit 15 minutes Anastasiia Colón APRN.CERTIFIED JUVENILE PROBATION OFFICER Work Phone: [facility] [place] Comment on above: Type 2 diabetes mingo itus with hyperglycemia, without long-term current use of insulin (HCC) (Primary Dx); Encounter for immunization; Screening for diabetic retinopathy; Screening for osteoporosis; Asymptomatic menopause Start: 07-02-2022 Telephone encounter Anastasiia vigil EDGE KITTER.CERTIFIED JUVENILE PROBATION OFFICER Work Phone: [facility] [place] Comment on above: Results Start: 07-01-2022 End: 07-01-2022 Office outpatient visit 25 minutes Anastasiia Colón SHANNAN.CERTIFIED JUVENILE PROBATION OFFICER Work Phone: [facility] [place] Comment on above: Routine medical exam (Primary Dx); Primary hypertension; Hyperlipidemia, unspecified hyperlipidemia type; Factor V deficiency (HCC); Type 2 diabetes mellitus with hyperglycemia, without long-term current use of insulin (HCC); Carotid atherosclerosis, unspecified laterality; Subclinical hypothyroidism; Hypersomnia; Fatty liver; Heart murmur; Nocturnal hypoxemia; Neuropathy; OAB (overactive bladder); Callus of foot; Injury of toe on right foot, subsequent encounter; Stenosis of carotid artery, unspecified laterality; History of carotid endarterectomy Start: 07-01-2022 End: 07-01-2022 Patient encounter status Anastasiia Colón SHANNAN.CERTIFIED JUVENILE PROBATION OFFICER Work Phone: [facility] [place] Procedures Date Procedure Procedure Detail Performing Clinician Start: 10-01-2024 CT angiography of head and neck Dr. Kierra Santiago MD Work Phone: Start: 06-20-[address] Kierra Santiago MD Work Phone: Start: 06-20-2024 End: 06-20-2024 Giardia lamblia antigen assay Dr. Kierra Santiago MD Work Phone: Start: 06-20-[address] Kierra Santiago MD Work Phone: Start: 06-20-2024 Ova OR parasites identification Dr. Kierra Santiago MD Work Phone: Start: 06-20-2024 Iadna-dna/rna gi pthgn multiplex probe tq 6-11 Dr. Kierra Santiago MD Work Phone: Start: 06-13-[address] Kierra Santiago MD Work Phone: Start: 05-23-2024 Prothrombin time [facility] Provider Start: 05-16-2024 Prothrombin time [facility] Provider Start: 05-14-2024 Evaluation of diagnostic study results Dr. Kierra Santiago MD Work Phone: Start: 05-09-2024 Prothrombin time [facility] Provider Start: 05-08-2024 Echocardiography KIERRA SANTIAGO Start: 05-01-2024 Prothrombin time [facility] Provider Start: 04-18-2024 Prothrombin time [facility] Provider Start: 04-16-2024 Prothrombin time [facility] Provider Start: 04-02-[address] Kierra Santiago MD Work Phone: Start: 03-28-2024 Measurement of occult blood in stool specimen using immunoassay Dr. Kierra Santiago MD Work Phone: Start: 03-23-[address] Kierra Santiago MD Work Phone: Start: 12-12-2023 Radiologic exam chest 2 views Saray Acosta PA Work Phone: Start: 11-30-2023 Us abdominal real time w/image limited Joelle Barreto EDGE KITTER.REPORT SPECIALIST Work Phone: Start: 11-14-2023 Echo tthrc r-t 2d w/wo m-mode complete rest&st Anastasiia Colón EDGE KITTER.CERTIFIED JUVENILE PROBATION OFFICER Work Phone: Start: 11-14-2023 Adult depression screening assessment Echocardiogram [facility] Work Phone: Start: 02-04-2023 [employer] COVID-19 VACCINE ( SEASON) AGE 12+ YR Kierra Santiago MD Work Phone: Start: 02-04-2023 INFLUENZA VACCINE, PRSV FREE, AGE 65+ YR, HIGH DOSE, QUADRIVALENT (FLUZONE HIGH-DOSE) Kierra Santiago MD Work Phone: Start: 11-22-2022 Ct thorax w/o contrast material Mary Kay Delgado DO Work Phone: Start: 10-12-2022 Ct angiography head w/contrast/noncontrast Mary Kay Delgado DO Work Phone: Start: 10-12-2022 Ct angiography neck w/contrast/noncontrast Mary Kay Delgado DO Work Phone: Start: 08-18-2022 Dxa bone density study 1/> sites axial skel Anastasiia Colón SHANNAN.CERTIFIED JUVENILE PROBATION OFFICER Work Phone: History of carotid endarterectomy History of carotid endarterectomy Anastasiia Salters EDGE KITTER.CERTIFIED JUVENILE PROBATION OFFICER Work Phone: History of carotid endarterectomy History of carotid endarterectomy Anastasiia Salters EDGE KITTER.CERTIFIED JUVENILE PROBATION OFFICER Work Phone: History of carotid endarterectomy History of carotid endarterectomy Mary Kay Delgado DO Work Phone: History of carotid endarterectomy History of carotid endarterectomy Kierra Santiago MD Work Phone: Plan of Treatment Date Care Activity Detail Author Start: 10-16-2033 Urine microalbumin profile DTaP,Tdap,Td Vaccine (2 - Td or Tdap) [facility] Start: 01-29-2025 End: 01-29-2025 Patient encounter procedure 01/29/2025 10:00 AM EDT Office Visit [facility] [place] [address] [place] [id number] Kierra Santiago MD [address] [place] [address] 6 month f/u [facility] [place] Comment on above: 6 month f/u Start: 01-17-2025 Hemoglobin A1c measurement HbA1C [facility] Start: 12-26-2024 Hepatitis B screening Urine Albumin:Creatinine Ratio [facility] Start: 12-26-2024 Hepatitis B surface antibody level LDL Cholesterol [facility] Start: 11-13-2024 Anxiety Screening Anxiety Screening [facility] Start: 11-13-2024 Depression Screening Depression Screening [facility] Start: 10-09-2024 End: 10-09-2024 Anticoagulant drug monitoring 10/09/2024 9:45 AM EDT Anticoagulation Visit [facility] [place] [address] [facility] [place] [address] Wstr, Anticoag [facility] [place] [address] [place] [address] inr Coumadin [facility] Comment on above: inr Start: 09-18-2024 Glaucoma screening Dilated Retinal Exam [facility] Start: 09-14-2024 Hepatitis B screening Urine Albumin:Creatinine Ratio [facility] Start: 09-14-2024 Hepatitis B surface antibody level LDL Cholesterol [facility] Start: 09-11-2024 End: 09-11-2024 Anticoagulant drug monitoring 09/11/2024 9:30 AM EDT Anticoagulation Visit [facility] [place] [address] [place] [address] Wstr, Anticoag [facility] [address] [place] [address] inr Coumadin [facility] Comment on above: inr Start: 08-22-2024 Egd transoral biopsy single/multiple EGD BIOPSY SINGLE/MULTIPLE [facility] Start: 08-22-2024 Patient discharge [facility] Start: 08-21-2024 End: 08-21-2024 Anticoagulant drug monitoring 08/21/2024 9:45 AM EDT Anticoagulation Visit Coumadin [facility] [address] [place] [address] Wstr, Anticoag [facility] [address] [place] [address] inr Coumadin [facility] Comment on above: inr Start: 08-17-2024 Hepatitis B surface antibody level LDL Cholesterol [facility] Start: 07-31-2024 End: 07-31-2024 Anticoagulant drug monitoring 07/31/2024 9:45 AM EDT Anticoagulation Visit Coumadin [facility] [address] [place] [address] Wstr, Anticoag [facility] [address] [place] [address] inr Coumadin [facility] Comment on above: inr Start: 07-29-2024 Covid-19 Vaccine ( season) Covid-19 Vaccine ( season) [facility] Start: 07-17-2024 End: 10-16-2024 Basic metabolic 2000 panel - Serum or Plasma [facility] Comment on above: Expected: 07/17/2024, Expires: Start: 07-17-2024 End: 10-16-2024 Hemoglobin A1c in Blood [facility] Work Phone: Comment on above: Expected: 07/17/2024, Expires: Start: 07-17-2024 End: 10-16-2024 TSH W/REFLEX FT4 [facility] Comment on above: Expected: 07/17/2024, Expires: Start: 07-17-2024 End: 07-17-2024 Anticoagulant drug monitoring 07/17/2024 11:00 AM EDT Antico[facility] [place] [address] [place] [address] [facility] [address] [place] [address] inr - ok to check pt in when she arrives coming from appt with TB - mrg [facility] [place] Comment on above: inr - ok to check pt in when she arrives coming from appt with TB - mrg Start: 07-17-2024 End: 07-17-2024 Patient encounter procedure 07/17/2024 10:00 AM EDT Office Visit [facility] [place] [address] [place] [address] Anastasiia Colón APRN.CERTIFIED JUVENILE PROBATION OFFICER [address] [place] [address] follow up [facility] [place] Comment on above: follow up Start: 07-05-2024 End: 07-05-2024 Anticoagulant drug monitoring 07/05/2024 9:45 AM EST Antico[facility] [place] [address] [place] [address] Wstr, Anticoag [facility] [address] [place] [address] inr Coumadin [facility] Comment on above: inr Start: 06-28-2024 Hemoglobin A1c measurement HbA1C [facility] Start: 06-28-2024 End: 06-28-2024 Anticoagulant drug monitoring 06/28/2024 9:30 AM EST Anticoagulation Visit Coumadin [facility] [address] [place] [address] Wstr, Anticoag [facility] [address] [place] [address] inr Coumadin [facility] Comment on above: inr Start: 06-12-2024 Patient referral [facility] Work Phone: Start: 06-06-2024 Hepatitis B surface antibody level LDL Cholesterol [facility] Start: 06-05-2024 End: 06-05-2024 Patient encounter procedure 06/05/2024 10:00 AM EST Office Visit Vascular Surgery [address] [place] [address] Mary Kay Delgado, DO [address] [place] [address] follow up after testing Vascular Surgery Comment on above: follow up after testing Start: 06-04-2024 End: 06-04-2024 Patient encounter procedure Cardiology Comment on above: 6 week follow uop Start: 05-18-2024 End: 05-18-2024 Patient encounter procedure 05/18/2024 9:20 AM EST Appointment Cat Scan [address] [place] [address] Occlusion and stenosis of unspecified carotid artery [I65.29] Cat Scan Comment on above: Occlusion and stenosis of unspecified ca rotid artery [I65.29] Start: 05-08-2024 End: 05-08-2024 Patient encounter procedure Vasculary Surgery Comment on above: Bilateral carotid artery stenosis [I65.2 3] follow up after test ing Aortic valve disorde r [I35.9] Start: 05-07-2024 End: 05-07-2024 Patient encounter procedure 05/07/2024 10:20 AM EST Office Visit Cardiology [address] [place] [id number] Terrence Jane MD [address], [address] [place] [address] Atrial fibrillation, unspecified type (HCC) [I48.91]; Chest pain, unspecified type [R07.9] Cardiology Comment on above: Atrial fibrillation, unspecified type (H CC) [I48.91]; Chest pain, unspecified type [R07.9] Start: 05-02-2024 Advance Directive Discussion Advance Directive Discussion [facility] Start: 04-30-2024 End: 04-23-2025 Echocardiography ECHO Cardiology Routine Aortic valve disorder Expected: 04/30/2024, Expires: 04/23/2025 [facility] Work Phone: Comment on above: Expected: 04/30/2024, Expires: Start: 04-23-2024 End: 04-23-2024 Patient encounter procedure 04/23/2024 3:00 PM EST Office Visit Cardiology [address] [place] [id number] Terrence Jane MD [address], [address] [place] [address] Atrial fibrillation, unspecified type (HCC) [I48.91]; Chest pain, unspecified type [R07.9] Cardiology Comment on above: Atrial fibrillation, unspecified type (H CC) [I48.91]; Chest pain, unspecified type [R07.9] Start: 04-17-2024 End: 04-17-2024 Patient encounter procedure 04/17/2024 11:20 AM EST Office Visit [facility] [place] [address] [place], [place] [id number] Anastasiia Colón APRN.CERTIFIED JUVENILE PROBATION OFFICER [address] [place], [place] [id number] [facility] follow up Discharged on 04/08/24 [facility] [place] Comment on above: [facility] follow up Discharged on 04/08/24 Start: 04-09-2024 Development of care plan [facility] Start: 04-08-2024 Patient discharge [facility] Start: 04-06-2024 [facility] Start: 04-05-2024 Referral to service [facility] Start: 04-04-2024 Egd transoral biopsy single/multiple EGD BIOPSY SINGLE/MULTIPLE [facility] Start: 04-04-2024 Patient discharge [facility] Start: 04-03-2024 [facility] Start: 04-03-2024 [facility] Start: 04-02-2024 Referral to gastroenterology service [facility] Start: 03-27-2024 Administration of blood product [facility] Start: 03-27-2024 [facility] Start: 03-27-2024 Administration of blood product [facility] Start: 03-27-2024 [facility] Start: 03-21-2024 Patient referral to dietitian [facility] Start: 03-20-2024 Development of care plan [facility] Start: 03-20-2024 Developing a treatment plan [facility] Start: 03-19-2024 Following clinical pathway protocol [facility] Start: 03-19-2024 Contact precautions [facility] Start: 03-19-2024 Consultation for treatment [facility] Start: 03-19-2024 Referral to artist mannequin coloring [facility] Start: 03-19-2024 Referral to vascular surgeon [facility] Start: 03-19-2024 Wound care [facility] Start: 03-19-2024 Provision of activity privileges [facility] Start: 03-19-2024 Admission procedure [facility] Start: 03-19-2024 Introduction of urinary catheter [facility] Start: 03-19-2024 Measuring intake and output [facility] Start: 03-19-2024 Patient referral to dietitian [facility] Start: 03-19-2024 Referral to occupational therapist [facility] Start: 03-19-2024 Referral to service [facility] Start: 03-19-2024 Vital signs measurements [facility] Start: 03-19-2024 End: 03-19-2024 [facility] Start: 03-12-2024 End: 03-12-2024 Patient encounter procedure [facility] [place] Comment on above: 2 month follow up 2 month follow up, A nxiety and Depression. See TE from 02/29/24. Start: 03-08-2024 End: 03-08-2024 Anticoagulant drug monitoring 03/08/2024 9:00 AM EST Anticoagulation Visit Coumadin [facility] [address] [place] [address] Wstr, [facility] [address] [place] [address] inr [facility] [place] Comment on above: inr Start: 03-01-2024 End: 03-01-2024 Anticoagulant drug monitoring 03/01/2024 10:15 AM EDT Anticoagulation Visit Coumadin [facility] [address] [place] [address] Wstr, [facility] [address] [place] [address] inr - ok to check pt in when she arrives coming from [facility] Coumadin [facility] Comment on above: inr - ok to check pt in when she arrives coming from [facility] Start: 02-27-2024 End: 02-27-2024 Anticoagulant drug monitoring 02/27/2024 9:45 AM EDT Anticoagulation Visit Coumadin [facility] [address] [place] [address] Wstr, [facility] [address] [place] [address] INR - transitioning off Lovenox Coumadin [facility] Comment on above: INR - transitioning off Lovenox Start: 02-23-2024 End: 05-24-2024 CBC W Auto Differential panel - Blood [facility] Comment on above: Expected: 02/23/2024, Expires: Start: 02-23-2024 End: 05-24-2024 Comprehensive metabolic 2000 panel - Serum or Plasma [facility] Comment on above: Expected: 02/23/2024, Expires: Start: 02-23-2024 End: 05-24-2024 PT panel - Platelet poor plasma by Coagulation assay PROTHROMBIN TIME Lab Routine Factor 5 Leiden mutation, heterozygous (HCC) Expected: 02/23/2024, Expires: 05/24/2024 [facility] Work Phone: Comment on above: Expected: 02/23/2024, Expires: Start: 02-06-2024 End: 02-06-2024 Patient encounter procedure 02/06/2024 9:20 AM EDT Office Visit [facility] [place] [address] [place] [address] Anastasiia Colón APRN.CERTIFIED JUVENILE PROBATION OFFICER [address] [place] [address] 4 month follow up [facility] [place] Comment on above: 4 month follow up Start: 01-19-2024 End: 01-19-2024 Anticoagulant drug monitoring 01/19/2024 11:30 AM EDT Anticoagulation Visit Coumadin [facility] [address] [place] [address] Wstr, Anticoag [facility] [address] [place] [address] inr [facility] [place] Comment on above: inr Start: 01-11-2024 End: 01-11-2024 Patient encounter procedure 01/11/2024 4:00 PM EDT Office Visit [facility] [place] [address] [place] [address] Kierra Santiago MD [address] [place] [address] 3 month f/u [facility] [place] Comment on above: 3 month f/u Start: 01-05-2024 End: 01-05-2024 Anticoagulant drug monitoring 01/05/2024 9:15 AM EDT Anticoagulation Visit [facility] [place] [address] [place] [address] Wstr, [facility] [place] [address] [facility] [place] [address] inr [facility] [place] Comment on above: inr Start: 01-01-2024 Covid-19 Vaccine () Covid-19 Vaccine () [facility] Start: 01-01-2024 Influenza vaccination Influenza Vaccine (#1) [facility] Start: 12-27-2023 End: 03-27-2024 Microalbumin/Creatinine [Mass Ratio] in Urine [facility] Work Phone: Comment on above: Expected: 12/27/2023, Expires: 4 Start: 12-16-2023 Hemoglobin A1c measurement HbA1C [facility] Start: 12-12-2023 Shingrix Vaccine (2 of 2) Shingrix Vaccine (2 of 2) [facility] Start: 12-11-2023 End: 12-25-2023 COVID & INFLUENZA A/B & RSV NAAT, ROUTINE COVID & INFLUENZA A/B & RSV NAAT, ROUTINE Microbiology Routine Acute cough URI, acute Expected: 12/11/2023, Expires: 12/25/2023 [facility] Work Phone: Comment on above: Expected: 12/11/2023, Expires: 4 Start: 12-08-2023 End: 12-08-2023 Anticoagulant drug monitoring 12/08/2023 9:15 AM EDT Anticoagulation Visit Coumadin [facility] [address] [place] [address] Wstr, [facility] [place] [address] [place] [address] inr [facility] [place] Comment on above: inr Start: 12-05-2023 Hemoglobin A1c measurement HbA1C [facility] Start: 11-30-2023 Hepatitis B surface antibody level LDL CHOLESTEROL [facility] Start: 11-30-2023 End: 11-30-2023 Patient encounter procedure 11/30/2023 7:45 AM EDT Appointment Radiology [address] [place] [id number] elevated alanine aminotransferase (ALT) Radiology Comment on above: elevated alanine aminotransferase (ALT) Start: 11-18-2023 End: 02-17-2024 Chronic hepatitis differentiation between hepatitis B and C virus panel - Serum or Plasma HEP REMOTE PANEL BL Lab Routine Elevated alanine aminotransferase (ALT) level Expected: 11/18/2023, Expires: 02/17/2024 [facility] Comment on above: Expected: 11/18/2023, Expires: Start: 11-18-2023 End: 02-17-2024 Hepatic function 2000 panel - Serum or Plasma HEPATIC FUNCTION PNL Lab Routine Elevated alanine aminotransferase (ALT) level Expected: 11/18/2023, Expires: 02/17/2024 [facility] Comment on above: Expected: 11/18/2023, Expires: Start: 11-18-2023 End: 11-18-2023 Patient encounter procedure 11/18/2023 11:20 AM EDT Office Visit Gastroenterology [place] [address] [place] [id number] Joelle Barreto APRN.REPORT SPECIALIST [address] [facility] [place] [address] Transaminitis [R74.01] [facility] Comment on above: Transaminitis [R74.01] Start: 11-17-2023 Hemoglobin A1c measurement HbA1C [facility] Start: 11-14-2023 End: 11-14-2023 Patient encounter procedure 11/14/2023 1:50 PM EDT Office Visit Cardiology [address] [place] [address] Wstr, Nurse Card Admin [facility] [address] [place] [address] Chest pain, unspecified type [R07.9] Cardiology Comment on above: Chest pain, unspecified type [R07.9] Start: 11-14-2023 End: 11-14-2023 Patient encounter procedure 11/14/2023 9:40 AM EDT Office Visit [facility] [place] [address] [place] [address] Anastasiia Colón APRN.CERTIFIED JUVENILE PROBATION OFFICER [address] [place] [address] follow up [facility] [place] Comment on above: follow up Start: 11-13-2023 End: 02-12-2024 Basic metabolic 2000 panel - Serum or Plasma BASIC METABOLIC PANEL Lab Routine Type 2 diabetes mellitus with diabetic polyneuropathy, without long-term current use of insulin (HCC) Expected: 11/13/2023 (Approximate), Expires: 02/12/2024 [facility] Work Phone: Comment on above: Expected: 11/13/2023 (Approximate), Expi res: 02/12/2024 Start: 11-10-2023 End: 11-10-2023 Anticoagulant drug monitoring 11/10/2023 9:15 AM EDT Anticoagulation Visit [facility] [place] [address] [place] [address] Wstr, Anticoag [facility] [address] [place] [address] inr [facility] [place] Comment on above: inr Start: 10-24-2023 End: 10-24-2023 Patient encounter procedure 10/24/2023 3:40 PM EDT Appointment Cat Scan [address] [place] [address] Lung nodules [R91.8] Cat Scan Comment on above: Lung nodules [R91.8] Start: 10-18-2023 End: 01-17-2024 Basic metabolic 2000 panel - Serum or Plasma BASIC METABOLIC PANEL Lab Routine Uncontrolled type 2 diabetes mellitus with hyperglycemia (HCC) Hyponatremia Expected: 10/18/2023 (Approximate), Expires: 01/17/2024 [facility] Work Phone: Comment on above: Expected: 10/18/2023 (Approximate), Expi res: 01/17/2024 Start: 10-13-2023 End: 10-13-2023 Anticoagulant drug monitoring 10/13/2023 9:00 AM EDT Anticoagulation Visit [facility] [place] [address] [place] [address] Wstr, Anticoag [facility] [address] [place] [address] inr [facility] [place] Comment on above: inr Start: 10-12-2023 End: 10-12-2023 Nursing evaluation of patient and report 10/12/2023 2:00 PM EDT Nurse Visit Endocrinology [address] [place] [address] Suresh Varela, RN [address] [id number] Uncontrolled type 2 diabetes mellitus with hyperglycemia (HCC) [E11.65] Endocrinology Comment on above: Uncontrolled type 2 diabetes mellitus wi th hyperglycemia (HCC) [E11.65] Start: 10-10-2023 End: 01-09-2024 Comprehensive metabolic 2000 panel - Serum or Plasma [facility] Comment on above: Expected: 10/10/2023, Expires: Start: 10-10-2023 End: 10-10-2023 Patient encounter procedure 10/10/2023 11:40 AM EDT Office Visit [facility] [place] [address] [place] [address] Anastasiia Colón APRN.CERTIFIED JUVENILE PROBATION OFFICER [address] [place] [address] 4 month follow up [facility] [place] Comment on above: 4 month follow up Start: 10-07-2023 End: 10-07-2023 Patient encounter procedure 10/07/2023 10:40 AM EDT Office Visit [facility] [place] [address] [facility] [place] [place] [address] Kierra Santiago MD [address] [place] [address] 4 month follow up [facility] [place] Comment on above: 4 month follow up Start: 10-04-2023 End: 10-04-2023 Patient encounter procedure 10/04/2023 9:30 AM EDT Office Visit Vascular Surgery [address] [address] Mary Kay Delgado, DO [address] [place] [address] 6 MONTH FOLLOW UP WITH CAROTID TESTING Vascular Surgery Comment on above: 6 MONTH FOLLOW UP WITH CAROTID TESTING Start: 09-30-2023 End: 06-01-2024 ALBUMIN/CREAT RATIO RND UR ALBUMIN/CREAT RATIO RND UR Lab Routine Type 2 diabetes mellitus with hyperglycemia, without long-term current use of insulin (HCC) Type 2 diabetes mellitus with diabetic polyneuropathy, without long-term current use of insulin (HCC) Expected: 09/30/2023 (Approximate), Expires: 06/01/2024 [facility] Work Phone: Comment on above: Expected: 09/30/2023 (Approximate), Expi res: 06/01/2024 Start: 09-30-2023 End: 06-01-2024 CBC W Auto Differential panel - Blood CBC + DIFF Lab Routine Factor V deficiency (HCC) Type 2 diabetes mellitus with hyperglycemia, without long-term current use of insulin (HCC) Type 2 diabetes mellitus with diabetic polyneuropathy, without long-term current use of insulin (HCC) Expected: 09/30/2023 (Approximate), Expires: 06/01/2024 [facility] Work Phone: Comment on above: Expected: 09/30/2023 (Approximate), Expi res: 06/01/2024 Start: 09-30-2023 End: 06-01-2024 Comprehensive metabolic 2000 panel - Serum or Plasma COMP METABOLIC PANEL Lab Routine Peripheral vascular disease, unspecified (HCC) Type 2 diabetes mellitus with hyperglycemia, without long-term current use of insulin (HCC) Type 2 diabetes mellitus with diabetic polyneuropathy, without long-term current use of insulin (HCC) Expected: 09/30/2023 (Approximate), Expires: 06/01/2024 [facility] Work Phone: Comment on above: Expected: 09/30/2023 (Approximate), Expi res: 06/01/2024 Start: 09-30-2023 End: 06-01-2024 Hemoglobin A1c in Blood HGB A1C Lab Routine Peripheral vascular disease, unspecified (HCC) Type 2 diabetes mellitus with hyperglycemia, without long-term current use of insulin (HCC) Type 2 diabetes mellitus with diabetic polyneuropathy, without long-term current use of insulin (HCC) Expected: 09/30/2023 (Approximate), Expires: 06/01/2024 [facility] Work Phone: Comment on above: Expected: 09/30/2023 (Approximate), Expi res: 06/01/2024 Start: 09-30-2023 End: 06-01-2024 Lipid 1996 panel - Serum or Plasma LIPID PANEL BASIC Lab Routine Peripheral vascular disease, unspecified (HCC) Type 2 diabetes mellitus with hyperglycemia, without long-term current use of insulin (HCC) Type 2 diabetes mellitus with diabetic polyneuropathy, without long-term current use of insulin (HCC) Mixed hyperlipidemia Expected: 09/30/2023 (Approximate), Expires: 06/01/2024 [facility] Work Phone: Comment on above: Expected: 09/30/2023 (Approximate), Expi res: 06/01/2024 Start: 09-30-2023 End: 06-01-2024 Thyrotropin [Units/volume] in Serum or Plasma TSH BLD Lab Routine Type 2 diabetes mellitus with hyperglycemia, without long-term current use of insulin (HCC) Type 2 diabetes mellitus with diabetic polyneuropathy, without long-term current use of insulin (HCC) Subclinical hypothyroidism Expected: 09/30/2023 (Approximate), Expires: 06/01/2024 [facility] Work Phone: Comment on above: Expected: 09/30/2023 (Approximate), Expi res: 06/01/2024 Start: 09-29-2023 End: 09-29-2023 Patient encounter procedure 09/29/2023 11:00 AM EDT Office Visit [facility] [address] [facility] [address] 6 MONTH FOLLOW UP WITH CAROTID TESTING [facility] Comment on above: 6 MONTH FOLLOW UP WITH CAROTID TESTING Start: 09-09-2023 Glaucoma screening Dilated Retinal Exam [facility] Start: 09-09-2023 Hepatitis C antibody, confirmatory test DILATED RETINAL EXAM [facility] Start: 08-26-2023 Hepatitis B surface antibody level LDL CHOLESTEROL [facility] Start: 08-10-2023 3 comp foot exam completed DIABETIC FOOT EXAM [facility] Start: 08-10-2023 Diabetic foot examination Diabetic Foot Exam [facility] Start: 08-03-2023 COVID-19 VACCINE (#1) COVID-19 VACCINE (#1) [facility] Comment on above: Postponed from [birth year]/1940 (Declined at t his time) Start: 08-03-2023 Hepatitis B screening URINE ALBUMIN:CREATININE RATIO [facility] Start: 08-03-2023 Pneumococcal Vaccine: 65+ (1 - PCV) Pneumococcal Vaccine: 65+ (1 - PCV) [facility] Comment on above: Postponed from [birth year]/14/1945 (Declined at t his time) Start: 08-03-2023 Pneumococcal Vaccine: 65+ (1 of 2 - PCV) Pneumococcal Vaccine: 65+ (1 of 2 - PCV) [facility] Comment on above: Postponed from [birth year]/1945 (Declined at t his time) Start: 08-03-2023 PNEUMOCOCCAL: 65+ (1 - PCV) PNEUMOCOCCAL: 65+ (1 - PCV) [facility] Comment on above: Postponed from [birth year]1945 (Declined at t his time) Start: 08-03-2023 SHINGRIX VACCINE (1 of 2) SHINGRIX VACCINE (1 of 2) [facility] Comment on above: Postponed from 10/14/1989 (Declined at t his time) Start: 08-03-2023 Urine microalbumin profile [facility] Comment on above: Postponed from 10/14/1958 (Declined at t his time) Start: 07-02-2023 Hepatitis B surface antibody level LDL CHOLESTEROL [facility] Start: 06-07-2023 Covid-19 Vaccine () Covid-19 Vaccine () [facility] Start: 06-01-2023 Hemoglobin A1c measurement HbA1C [facility] Start: 06-01-2023 Hemoglobin A1c/Hemoglobin.total in Blood HBA1C [facility] Start: 05-02-2023 Advance Directive Discussion Advance Directive Discussion [facility] Start: 05-02-2023 Behavioral Health Screening Behavioral Health Screening [facility] Start: 05-02-2023 Depression Assessment Depression Assessment [facility] Start: 01-01-2023 Hemoglobin A1c/Hemoglobin.total in Blood HBA1C [facility] Start: 12-31-2022 Influenza vaccination [facility] Start: 11-19-2022 End: 08-29-2023 Hemoglobin A1c in Blood HGB A1C Lab Routine Type 2 diabetes mellitus with hyperglycemia, without long-term current use of insulin (HCC) Expected: 11/19/2022 (Approximate), Expires: 08/29/2023 [facility] Work Phone: Comment on above: Expected: 11/19/2022 (Approximate), Expi res: 08/29/2023 Start: 11-19-2022 End: 08-29-2023 Lipid 1996 panel - Serum or Plasma LIPID PANEL BASIC Lab Routine High triglycerides Expected: 11/19/2022 (Approximate), Expires: 08/29/2023 [facility] Work Phone: Comment on above: Expected: 11/19/2022 (Approximate), Expi res: 08/29/2023 Start: 08-29-2022 3 comp foot exam completed DIABETIC FOOT EXAM [facility] Comment on above: Postponed from 10[birth year]14/1949 (Postponed To Appropriate Date) Start: 08-10-2022 End: 10-10-2022 Lipid 1996 panel - Serum or Plasma LIPID PANEL BASIC Lab Routine Stenosis of carotid artery, unspecified laterality History of carotid endarterectomy History of transient ischemic attack (TIA) Stenosis of left carotid artery Expected: 08/10/2022, Expires: 10/10/2022 [facility] Work Phone: Comment on above: Expected: 08/10/2022, Expires: Start: 08-02-2022 End: 10-02-2022 ALBUMIN/CREAT RATIO RND UR [facility] Work Phone: Comment on above: Expected: 08/02/2022, Expires: 3 Start: 05-02-2022 ADVANCE DIRECTIVE DISCUSSION ADVANCE DIRECTIVE DISCUSSION [facility] Start: 05-02-2022 DEPRESSION ASSESSMENT DEPRESSION ASSESSMENT [facility] Start: 12-31-2021 Influenza vaccination INFLUENZA (#1) [facility] Start: 10-14-2014 RSV Vaccine (1 - 1-dose 75+ series) RSV Vaccine (1 - 1-dose 75+ series) [facility] Start: 10-14-2004 BONE DENSITY BONE DENSITY [facility] Start: 1999 Hepatitis B Vaccine (1 of 3 - Risk 3-dose series) Hepatitis B Vaccine (1 of 3 - Risk 3-dose series) [facility] Start: 1999 RSV Vaccine (1 - 1-dose 60+ series) RSV Vaccine (1 - 1-dose 60+ series) [facility] Start: 10-14-1989 SHINGRIX VACCINE (1 of 2) SHINGRIX VACCINE (1 of 2) [facility] Start: 10-14-1958 Urine microalbumin profile [facility] Start: 10-14-1949 3 comp foot exam completed DIABETIC FOOT EXAM [facility] Start: 10-14-1949 Hepatitis B screening URINE ALBUMIN:CREATININE RATIO [facility] Start: 10-14-1949 Hepatitis C antibody, confirmatory test DILATED RETINAL EXAM [facility] Start: 10-14-1945 Pneumococcal Vaccine: 65+ (1 of 2 - PCV) Pneumococcal Vaccine: 65+ (1 of 2 - PCV) [facility] Start: 10-14-1945 PNEUMOCOCCAL: 65+ (1 - PCV) PNEUMOCOCCAL: 65+ (1 - PCV) [facility] Start: 04-15-1940 COVID-19 VACCINE (#1) COVID-19 VACCINE (#1) [facility] End: 02-04-2024 CBC panel - Blood by Automated count CBC Lab Routine Type 2 diabetes mellitus with diabetic polyneuropathy, without long-term current use of insulin (HCC) Primary hypertension Encounter for long-term current use of medication Every 3 months for 4 Occurrences starting 02/04/2023 until 02/04/2024 [facility] Work Phone: Comment on above: Every 3 months for 4 Occurrences startin g 02/04/2023 until 02/04/2024 End: 02-04-2024 Comprehensive metabolic 2000 panel - Serum or Plasma COMP METABOLIC PANEL Lab Routine Type 2 diabetes mellitus with diabetic polyneuropathy, without long-term current use of insulin (HCC) Primary hypertension Encounter for long-term current use of medication Every 3 months for 4 Occurrences starting 02/04/2023 until 02/04/2024 [facility] Work Phone: Comment on above: Every 3 months for 4 Occurrences startin g 02/04/2023 until 02/04/2024 CT Chest WO contrast CT CHEST WO IVCON Radiology Routine Lung nodules 10/24/2023 3:51 PM EDT [facility] Work Phone: End: 11-08-2024 CT Chest WO contrast CT CHEST WO IVCON Radiology Routine Lung nodules 1 Occurrences starting 10/10/2023 until 11/08/2024 [facility] Work Phone: Comment on above: 1 Occurrences starting 10/10/2023 until 11/08/2024 End: 06-07-2025 CT Neck W contrast IV CTA NECK W IVCON Radiology Routine Occlusion and stenosis of unspecified carotid artery 1 Occurrences starting 05/08/2024 until 06/07/2025 [facility] Comment on above: 1 Occurrences starting 05/08/2024 until 06/07/2025 End: 06-07-2025 CTA Head Arteries W contrast IV CTA HEAD W IVCON Radiology Routine Occlusion and stenosis of unspecified carotid artery 1 Occurrences starting 05/08/2024 until 06/07/2025 [facility] Work Phone: Comment on above: 1 Occurrences starting 05/08/2024 until 06/07/2025 CTA Head vessels and Neck vessels W contrast IV [facility] End: 09-01-2023 DXA-AXIAL SKELETON DXA-AXIAL SKELETON Radiology Routine Screening for osteoporosis Asymptomatic menopause 1 Occurrences starting 08/02/2022 until 09/01/2023 [facility] Work Phone: Comment on above: 1 Occurrences starting 08/02/2022 until 09/01/2023 End: 02-04-2024 Hemoglobin A1c in Blood HGB A1C Lab Routine Type 2 diabetes mellitus with diabetic polyneuropathy, without long-term current use of insulin (HCC) Encounter for long-term current use of medication Every 3 months for 4 Occurrences starting 02/04/2023 until 02/04/2024 [facility] Work Phone: Comment on above: Every 3 months for 4 Occurrences startin g 02/04/2023 until 02/04/2024 End: 07-01-2023 INR in Platelet poor plasma by Coagulation assay INR (POC) Lab Routine Factor V deficiency (HCC) Every other week for 99 Occurrences starting 07/01/2022 until 07/01/2023 [facility] Work Phone: Comment on above: Every other week for 99 Occurrences star ting 07/01/2022 until 07/01/2023 End: 07-20-2024 INR in Platelet poor plasma by Coagulation assay INR (POC) Lab Routine Factor V deficiency (HCC) Once per month for 99 Occurrences starting 07/21/2023 until 07/20/2024 [facility] Work Phone: Comment on above: Once per month for 99 Occurrences starti ng 07/21/2023 until 07/20/2024 End: 07-31-2025 INR in Platelet poor plasma by Coagulation assay INR (POC) Lab Routine Factor V deficiency (HCC) Once per month for 99 Occurrences starting 07/31/2024 until 07/31/2025 [facility] Work Phone: Comment on above: Once per month for 99 Occurrences starti ng 07/31/2024 until 07/31/2025 End: 02-04-2024 Lipid 1996 panel - Serum or Plasma LIPID PANEL BASIC Lab Routine Encounter for long-term current use of medication Mixed hyperlipidemia Every 3 months for 4 Occurrences starting 02/04/2023 until 02/04/2024 [facility] Work Phone: Comment on above: Every 3 months for 4 Occurrences startin g 02/04/2023 until 02/04/2024 Patient referral [place] Work Phone: [employer] COVI D-19 VACCINE () AGE 12+ YR PFIZER-BIONTECH COVID-19 VACCINE () AGE 12+ YR Immunization/Injection Routine Encounter for immunization 1 Occurrences starting 11/14/2023 [facility] Comment on above: 1 Occurrences starting 11/14/2023 Pneumococcal vaccination PNEUMOC OCCAL VACCINE, 20 VALENT (PREVNAR 20) Immunization/Injection Routine Encounter for immunization 1 Occurrences starting 11/14/2023 [facility] Work Phone: Comment on above: 1 Occurrences starting 11/14/2023 End: 07-01-2023 PT panel - Platelet poor plasma by Coagulation assay PROTHROMBIN TIME/PT Lab Routine Factor V deficiency (HCC) Every other week for 99 Occurrences starting 07/01/2022 until 07/01/2023 [facility] Work Phone: Comment on above: Every other week for 99 Occurrences star ting 07/01/2022 until 07/01/2023 End: 07-20-2024 PT panel - Platelet poor plasma by Coagulation assay PROTHROMBIN TIME/PT Lab STAT Factor V deficiency (HCC) Once per month for 99 Occurrences starting 07/21/2023 until 07/20/2024 [facility] Work Phone: Comment on above: Once per month for 99 Occurrences starti ng 07/21/2023 until 07/20/2024 End: 07-31-2025 PT panel - Platelet poor plasma by Coagulation assay PROTHROMBIN TIME Lab STAT Factor V deficiency (HCC) Once per month for 99 Occurrences starting 07/31/2024 until 07/31/2025 [facility] Comment on above: Once per month for 99 Occurrences starti ng 07/31/2024 until 07/31/2025 End: 10-09-2024 STRESS ECHO TREADMILL STRESS ECHO TREADMILL Cardiology Routine Chest pain, unspecified type 1 Occurrences starting 10/10/2023 until 10/09/2024 [facility] Comment on above: 1 Occurrences starting 10/10/2023 until 10/09/2024 End: 12-17-2024 US Abdomen RUQ US ABD RIGHT UPPER QUADRANT Radiology Routine Elevated alanine aminotransferase (ALT) level 1 Occurrences starting 11/18/2023 until 12/17/2024 [facility] Work Phone: Comment on above: 1 Occurrences starting 11/18/2023 until 12/17/2024 End: 10-03-2024 US Carotid arteries - bilateral US CAROTID ARTERIES [facility] Vascular Lab Routine Bilateral carotid artery stenosis 1 Occurrences starting 10/04/2023 until 10/03/2024 [facility] Work Phone: Comment on above: 1 Occurrences starting 10/04/2023 until 10/03/2024 End: 07-02-2023 US CAROTID ARTERIES [facility] US CAROTID ARTERIES [facility] Vascular Lab Routine Stenosis of carotid artery, unspecified laterality History of carotid endarterectomy 1 Occurrences starting 07/01/2022 until 07/02/2023 [facility] Work Phone: Comment on above: 1 Occurrences starting 07/01/2022 until 07/02/2023 End: 12-02-2023 US CAROTID ARTERIES [facility] US CAROTID ARTERIES [facility] Vascular Lab Routine Carotid stenosis, asymptomatic, bilateral 1 Occurrences starting 12/01/2022 until 12/02/2023 [facility] Work Phone: Comment on above: 1 Occurrences starting 12/01/2022 until 12/02/2023 End: 03-15-2024 US CAROTID ARTERIES [facility] US CAROTID ARTERIES [facility] Vascular Lab Routine Bilateral carotid artery stenosis 1 Occurrences starting 03/15/2023 until 03/15/2024 [facility] Work Phone: Comment on above: 1 Occurrences starting 03/15/2023 until 03/15/2024 End: 01-09-2025 XR Chest PA and Lateral XR CHEST 2V FRONTAL/LAT Radiology STAT Acute cough 1 Occurrences starting 12/11/2023 until 01/09/2025 [facility] Comment on above: 1 Occurrences starting 12/11/2023 until 01/09/2025 [facility] Immunizations Immunization Date Immunization Notes Care Provider Lamar moreira 05-08-2024 respiratory syncytia l virus (RSV) vaccine, bivalent (ABRYSVO) Mary Kay Luis DO Work Phone: [facility] 03-22-2024 pneumococcal conjuga te (PCV20) vaccine, 20 valent (PREVNAR 20) Mary Kay Luis DO Work Phone: [facility] 01-30-2024 Covid (Spikevax) Dr. Kierra lester MD Work Phone: [facility] 12-26-2023 influenza, high dose seasonal, preservative-free Kierra Santiago MD Work Phone: [facility] 12-26-2023 zoster vaccine recombinant Kierra Santiago MD Work Phone: [facility] 10-17-2023 tetanus toxoid, redu sharan diphtheria toxoid, and acellular pertussis vaccine, adsorbed Anastasiia Colón EDGE KITTER.CERTIFIED JUVENILE [employer]OBATION OFFICER Work Phone: [facility] 10-17-2023 zoster vaccine recombinant Anastasiia Colón EDGE KITTER.CERTIFIED JUVENILE PROBATION OFFICER Work Phone: [facility] 02-04-2023 COVID-19 vaccine, ag e 12+ yr, season (PFIZER-BIONTECH) Kierra Santiago MD Work Phone: [facility] Work Phone: 02-04-2023 influenza (HD-IIV4) vaccine, age 65+ yr, high dose, quadrivalent, PF (FLUZONE HIGH-DOSE) Kierra Santiago MD Work Phone: [facility] Work Phone: 02-04-2023 influenza virus vaccine, unspecified formulation Kierra Santiago MD Work Phone: [facility] 02-23-2022 COVID-19 vaccine, ag e 12+ yr, bivalent (PFIZER-BIONTECH) Kierra Santiago MD Work Phone: [facility] Work Phone: 03-11-2021 COVID-19 original vaccine, booster dose, monovalent (MODERNA) Kierra Santiago MD Work Phone: [facility] Work Phone: 07-14-2020 COVID-19 original vaccine, full dose, monovalent (MODERNA) Kierra Santiago MD Work Phone: [facility] Work Phone: 06-16-2020 COVID-19 original vaccine, full dose, monovalent (MODERNA) Kierra Santiago MD Work Phone: [facility] Work Phone: Payers Date Payer Category Payer Self-pay [id number] 2024 Unknown [facility] [employer] [employer] O [id number] 2024-[facility] [phone] [address] [place] [address] O [id number] 2024 Medicare [id number] 2023 Self-pay 2022 Medicare (Managed Care) 1.2. [id number] 2022 Private Health Insurance 101 [id number] 2004 Medicare [id number]. [id number] Unknown [id number] 2.16.840.1.431042.3.579.2. 462 Unknown [id number] 2.840.1.211432.3.579.2. 462 Unknown [id number] 2.840.1.580083.3.579.2. 462 Unknown [id number] 2.16.840.1.521798.3.579.2. 462 Unknown [id number] 2.16.840.1.389789.3.579.2. 462 Unknown [id number] 2.16.840.1.694596.3.579.2. 462 Unknown [id number] 2.16.840.1.697548.3.579.2. 462 Unknown [id number] 2.16.840.1.244678.3.579.2. 462 Unknown [id number] 2.16.840.1.194272.3.579.2. 462 Unknown [id number] 2.16.840.1.191478.3.579.2. 462 Unknown [id number] 2.16.840.1.657933.3.579.2. 462 Unknown [id number] 2.840.1.875138.3.579.2. 462 Unknown [id number] 2.840.1.596486.3.579.2. 462 Unknown [id number] 2.840.1.105715.3.579.2. 462 Unknown [id number] 2.16.840.1.451211.3.579.2. 462 Unknown [id number] 2.16.840.1.545812.3.579.2. 462 Unknown [id number] 2.16840.1.906828.3.579.2. 462 Unknown [id number] 2.16.840.1.444603.3.579.2. 462 Unknown [id number] 2.16.840.1.500256.3.579.2. 462 Unknown [id number] 2.16.840.1.852275.3.579.2. 462 Unknown [id number] 2.16.840.1.797184.3.579.2. 462 Unknown [id number] 2.16840.1.731768.3.579.2. 462 Unknown [id number] 2.16.840.1.613357.3.579.2. 462 Unknown [id number] 2.16840.1.503030.3.579.2. 462 Unknown [id number] 2.16840.1.832589.3.579.2. 462 Unknown [id number] 2.16840.1.901181.3.579.2. 462 Unknown [id number] 2.840.1.605602.3.579.2. 462 Unknown [id number] 2.840.1.787129.3.579.2. 462 Unknown [id number] 2.840.1.735251.3.579.2. 462 Unknown [id number] 2.840.1.014087.3.579.2. 462 Unknown [id number] 2.840.1.448992.3.579.2. 462 Unknown [id number] 2.840.1.186571.3.579.2. 462 Unknown [id number] 2.840.1.130369.3.579.2. 462 Unknown [id number] 2.840.1.560007.3.579.2. 462 Unknown [id number] 2.840.1.659747.3.579.2. 462 Unknown [id number] 2.840.1.480359.3.579.2. 462 Unknown [id number] 2.840.1.934112.3.579.2. 462 Unknown [id number] 2.840.1.415630.3.579.2. 462 Unknown [id number] 2.840.1.804819.3.579.2. 462 Unknown [id number] 2.840.1.923941.3.579.2. 462 Unknown [id number] 2.16.840.1.271722.3.579.2. 462 Unknown [id number] 2.16.840.1.344111.3.579.2. 462 Unknown [id number] 2.16.840.1.189317.3.579.2. 462 Unknown [id number] 2.16.840.1.108222.3.579.2. 462 Unknown [id number] 2.16840.1.886873.3.579.2. 462 Unknown [id number] 2.16840.1.688374.3.579.2. 462 Unknown [id number] 2.840.1.622612.3.579.2. 462 Unknown [id number] 2.840.1.064562.3.579.2. 462 Unknown [id number] 2.840.1.026316.3.579.2. 462 Unknown [id number] 2.840.1.596252.3.579.2. 462 Unknown [id number] 2.840.1.633659.3.579.2. 462 Unknown [id number] 2.840.1.033277.3.579.2. 462 Unknown [id number] 2.840.1.259814.3.579.2. 462 Unknown [id number] 2.840.1.810442.3.579.2. 462 Unknown [id number] 2.16840.1.808143.3.579.2. 462 Unknown [id number] 2.16840.1.937071.3.579.2. 462 Unknown [id number] 2.16840.1.716944.3.579.2. 462 Unknown [id number] 2.16840.1.282209.3.579.2. 462 Unknown [id number] 2.16840.1.462763.3.579.2. 462 Unknown [id number] 2.16.840.1.162721.3.579.2. 462 Unknown [id number] 2.16.840.1.158049.3.579.2. 462 Unknown [id number] 2.16.840.1.707819.3.579.2. 462 Unknown [id number] 2.16.840.1.031845.3.579.2. 462 Unknown [id number] 2.16.840.1.267298.3.579.2. 462 Unknown [id number] 2.840.1.114799.3.579.2. 462 Unknown [id number] 2.840.1.639993.3.579.2. 462 Unknown [id number] 2.840.1.360731.3.579.2. 462 Unknown [id number] 2.840.1.775568.3.579.2. 462 Unknown [id number] 2.840.1.943978.3.579.2. 462 Unknown [id number] 2.840.1.416462.3.579.2. 462 Unknown [id number] 2.840.1.137181.3.579.2. 462 Unknown [id number] 2.840.1.040927.3.579.2. 462 Unknown [id number] 2.840.1.547936.3.579.2. 462 Unknown [id number] 2.840.1.347200.3.579.2. 462 Unknown [id number] 2.840.1.758661.3.579.2. 462 Unknown [id number] 2.16840.1.876745.3.579.2. 462 Unknown [id number] 2.16840.1.295049.3.579.2. 462 Unknown [id number] 2.840.1.127127.3.579.2. 462 Unknown [id number] 2..840.1.827660.3.579.2. 462 Unknown [id number] 2.840.1.377391.3.579.2. 462 Unknown [id number] 2..840.1.415623.3.579.2. 462 Social History Date Type Detail Facility Start: 04-14-2015 End: 08-17-2024 Tobacco smoking status SCIS Never smoked tobacco [facility] Work Phone: Start: 07-02-2022 End: 08-02-2022 Alcohol intake Not Asked [facility] Start: 1940 Sex Assigned At Not on file C [facility] Start: 08-01-2022 History SDOH Alcohol Frequency 3 [facility] Start: 08-01-2022 History SDOH Alcohol Std Drinks 0 [facility] Start: 08-01-2022 History SDOH Alcohol Binge 1 [facility] Start: 08-01-2022 History SDOH Social Connections Phone 5 [facility] Start: 08-01-2022 History SDOH Physica l Activity DPW 2 [facility] Start: 08-09-2022 End: 07-17-2024 Alcohol intake Current drinker of alcohol (finding) [facility] Start: 08-09-2022 Alcohol Comment occ [facility] Start: 07-31-2022 End: 09-08-2022 History of Social function [facility] Start: 07-31-2022 End: 09-08-2022 Social connection and isolation panel [facility] Do you belong to any clubs or organizations such as uatsdin groups, unions, fraternal or athletic groups, or school groups? Yes [facility] Are you now , , , , never or living with a partner? [facility] How often to you hav e a drink containing alcohol? 2-4 times a month [facility] How many standard drinks containing alcohol do you have on a typical day? Patient does not drink [facility] How often do you hav e 6 or more drinks on 1 occasion? Never [facility] Do you feel stress - tense, restless, nervous, or anxious, or unable to sleep at night because your mind is troubled all the time - these days [OSQ] Only a little [facility] (I/We) worried wheth er (my/our) food would run out before (I/we) got money to buy more. Never true [facility] [place] In the past 12 month s, was there a time when you were not able to pay the mortgage or rent on time? No [facility] Start: 1940 Sex Assigned At Female C [facility] Start: 08-13-2023 Gender identity Identifies as female gender (finding) [facility] Start: 08-13-2023 Sexual orientation Heterosexual (fin ding) [facility] Start: 07-18-2024 End: 08-21-2024 Sex Female (finding) [facility] NEGATED: Highlighted row Not [facility] Medical Equipment Procedure Code Equipment Code Equipment Origin al Text Equipment Identifier Dates EGD, with monitored anesthesia care Ligation clip, metallic [id number] FDA Start: 04-04-2024 Creation, bypass, arterial, femoral to popliteal, using graft DRESSING,SURGICEL 4x8 FDA Start: 01-19-2024 Creation, bypass, arterial, femoral to popliteal, using graft GRAFT,PPATEN VASC TW,RR,6MMx50 FDA Start: 01-19-2024 Creation, bypass, arterial, femoral to popliteal, using graft SURGIFLO HEMOSTATIC MATRIX FDA Start: 01-19-2024 Creation, bypass, arterial, femoral to popliteal, using graft SUTURE,LIGA CLIP MED LT200 FDA Start: 01-19-2024 Creation, bypass, arterial, femoral to popliteal, using graft SUTURE,LIGA CLIP MED LT200 FDA Start: 01-19-2024 Creation, bypass, arterial, femoral to popliteal, using graft SUTURE,LIGA CLIP SM LT-100 FDA Start: 01-19-2024 Creation, bypass, arterial, femoral to popliteal, using graft SUTURE,LIGA CLIP SM LT-100 FDA Start: 01-19-2024 Creation, bypass, arterial, femoral to popliteal, using graft Collagen haemostatic agent, non-antimicrobial ()[id number] FDA Start: 03-12-2024 Creation, bypass, arterial, femoral to popliteal, using graft Ligation clip, metallic ()[id number] FDA Start: 03-12-2024 Creation, bypass, arterial, femoral to popliteal, using graft Ligation clip, metallic ()[id number] FDA Start: 03-12-2024 Creation, bypass, arterial, femoral to popliteal, using graft Ligation clip, metallic ()[id number] FDA Start: 03-12-2024 Creation, bypass, arterial, femoral to popliteal, using graft Ligation clip, metallic ()[id number] FDA Start: 03-12-2024 Creation, bypass, arterial, femoral to popliteal, using graft Ligation clip, metallic ()[id number] FDA Start: 03-12-2024 Creation, bypass, arterial, femoral to popliteal, using graft Ligation clip, metallic ()[id number] FDA Start: 03-12-2024 Creation, bypass, arterial, femoral to popliteal, using graft DRESSING,SURGICEL 4x8 FDA Start: 01-19-2024 Creation, bypass, arterial, femoral to popliteal, using graft GRAFT,PPATEN VASC TW,RR,6MMx50 FDA Start: 01-19-2024 Creation, bypass, arterial, femoral to popliteal, using graft SURGIFLO HEMOSTATIC MATRIX FDA Start: 01-19-2024 Creation, bypass, arterial, femoral to popliteal, using graft SUTURE,LIGA CLIP MED LT200 FDA Start: 01-19-2024 Creation, bypass, arterial, femoral to popliteal, using graft SUTURE,LIGA CLIP MED LT200 FDA Start: 01-19-2024 Creation, bypass, arterial, femoral to popliteal, using graft SUTURE,LIGA CLIP SM LT-100 FDA Start: 01-19-2024 Creation, bypass, arterial, femoral to popliteal, using graft SUTURE,LIGA CLIP SM LT-100 FDA Start: 01-19-2024 Creation, bypass, arterial, femoral to popliteal, using graft DRESSING,SURGICEL 4x8 FDA Start: 01-19-2024 Creation, bypass, arterial, femoral to popliteal, using graft GRAFT,PPATEN VASC TW,RR,6MMx50 FDA Start: 01-19-2024 Creation, bypass, arterial, femoral to popliteal, using graft SURGIFLO HEMOSTATIC MATRIX FDA Start: 01-19-2024 Creation, bypass, arterial, femoral to popliteal, using graft SUTURE,LIGA CLIP MED LT200 FDA Start: 01-19-2024 Creation, bypass, arterial, femoral to popliteal, using graft SUTURE,LIGA CLIP MED LT200 FDA Start: 01-19-2024 Creation, bypass, arterial, femoral to popliteal, using graft SUTURE,LIGA CLIP SM LT-100 FDA Start: 01-19-2024 Creation, bypass, arterial, femoral to popliteal, using graft SUTURE,LIGA CLIP SM LT-100 FDA Start: 01-19-2024 Creation, bypass, arterial, femoral to popliteal, using graft DRESSING,SURGICEL 4x8 FDA Start: 01-19-2024 Creation, bypass, arterial, femoral to popliteal, using graft GRAFT,PPATEN VASC TW,RR,6MMx50 FDA Start: 01-19-2024 Creation, bypass, arterial, femoral to popliteal, using graft SURGIFLO HEMOSTATIC MATRIX FDA Start: 01-19-2024 Creation, bypass, arterial, femoral to popliteal, using graft SUTURE,LIGA CLIP MED LT200 FDA Start: 01-19-2024 Creation, bypass, arterial, femoral to popliteal, using graft SUTURE,LIGA CLIP MED LT200 FDA Start: 01-19-2024 Creation, bypass, arterial, femoral to popliteal, using graft SUTURE,LIGA CLIP SM LT-100 FDA Start: 01-19-2024 Creation, bypass, arterial, femoral to popliteal, using graft SUTURE,LIGA CLIP SM LT-100 FDA Start: 01-19-2024 Creation, bypass, arterial, femoral to popliteal, using graft DRESSING,SURGICEL 4x8 FDA Start: 01-19-2024 Creation, bypass, arterial, femoral to popliteal, using graft GRAFT,PPATEN VASC TW,RR,6MMx50 FDA Start: 01-19-2024 Creation, bypass, arterial, femoral to popliteal, using graft SURGIFLO HEMOSTATIC MATRIX FDA Start: 01-19-2024 Creation, bypass, arterial, femoral to popliteal, using graft SUTURE,LIGA CLIP MED LT200 FDA Start: 01-19-2024 Creation, bypass, arterial, femoral to popliteal, using graft SUTURE,LIGA CLIP MED LT200 FDA Start: 01-19-2024 Creation, bypass, arterial, femoral to popliteal, using graft SUTURE,LIGA CLIP SM LT-100 FDA Start: 01-19-2024 Creation, bypass, arterial, femoral to popliteal, using graft SUTURE,LIGA CLIP SM LT-100 FDA Start: 01-19-2024 Goals Date Patient Goal Desired Activity /State Personal health goal Functional Status Date Assessment Result Facility 04-08-2024 Functional status Up ad kaylee;Chair [facility] Work Phone: 04-07-2024 Functional status Tolerates Activity Fair [facility] Work Phone: Mental Status Date Assessment Result Facility 08-22-2024 Cognitive function Voice/Name [facility] Work Phone: 04-08-2024 Cognitive function Voice/Name [facility] Work Phone: 04-04-2024 Cognitive function Appropriate;Cooperativ e [facility] Work Phone: 04-04-2024 Cognitive function Voice/Name [facility] Work Phone: Clinical Notes 07-01-2022 to 10-01-2024 Iwona Donato, XOCHILT - 09/11/2024 6:11 PM Iwona Hammond RN - 09/11/2024 10:32 AM Iwona Hammond RN - 08/21/2024 4:09 PM Iwona Hammond RN - 08/21/2024 12:02 PM EDT Note Date & Type Note Facility 10-01-2024 Radiology Diagnostic study note [facility] Imaging Services [address] [place] [address] CTA Head AND Neck W/ Contrast MR#: [id number] Acct: [id number] Name: ERI PRITCHARD Rep #: [id number] : 1940 F 83 From: Julian Phillips MD PCP: Dr. Kierra Santiago MD Status: RE G CLI Study:CTA Head AND Neck W/ Contrast Date of Glenny xam: 10/01/24 Exam# [id number] Ordering Dr: Dejan Crowell PROCEDURE: CTA HEAD AND NECK W/ CONTRAST 10/01/2024 REASON FOR EXAM: SEVERE >70% L ICA STENOSIS TECHNIQUE: CTA imaging of the head and neck from the aortic arch to the skull vertex with out contrast and with intravenous contrast. Multiplanar and multisequence images were obtained. CONTRAST: Isovue 370 VOLUME: 100 mL. One or more dose reduction techniques were used (e.g., Automated exposure control, adjustment of the mA and/or kV according to patient size, use of iterative reconstruction technique). RADIATION DOSE SUMMARY: DLP: 1321.55 mGycm COMPARISON: None. FINDINGS: Atherosclerosis of the aortic arch without significant stenosis. Atherosclerosis of the bilateral subclavian arteries without significant stenosis. Scattered atherosclerosis of the common carotid arteries without significant stenosis. Atherosclerosis of the proximal right internal carotid artery with [id number]% stenosis. Atherosclerosis of the left proximal internal carotid artery with approximately 75% stenosis. Atherosclerosis of the origins of the bilateral vertebral arteries without significant stenosis. Atherosclerosis of the carotid siphons. The [id number] is patent. The anterior cerebral, anterior communicating, middle cerebral, and posterior cerebral arteries are patent. The intracranial vertebrobasilar system is patent with mild acetabular sclerosis of the intracranial vertebral arteries without significant stenosis. The lung apices are clear. CT/CTA Head AND Neck W/ Contrast IMPRESSION: Approximately 90% stenosis of the right internal carotid artery. Approximately 75% stenosis of the left internal carotid artery. Additional scattered atherosclerosis without hemodynamically significant stenosis. Reading Location: [id number] CC: COLTON Wetzel; Dr. Kierra Santiago MD ~ Design Engineering Specialist: Signed [facility] 09-11-2024 Note HNO ID: [id number] Author: IWONA DONATO RN Service: ? Author Type: Registered Nurse Type: Progress Notes Filed: 09/11/2024 18:11 Note Text: pcp agrees with information [facility] 09-11-2024 History of Presen t illness Narrative pcp agrees with information patient had inr completed at [facility] patients inr is 2.8 (patients inr range is 2.0-3.0) patient is currently taking 2mg Mon,Wed,Fri and 3mg all other days patients last dose change was on 07/05/24 due to a low level of 1.3 (dose at that time was 3mg Tues,Thurs,Sun and 2mg all other days) patient has had no changes in medication and no missed doses and no change in diet Advised patient to continue on the same dose(s) and that they would only be contacted regarding dosage and follow up instructions after review with provider, if a change is needed. Written instructions given and patient verbalized understanding. Presently scheduled in 4 weeks (10/09/24) for follow up INR. documented in this encounter [facility] 09-11-2024 Note [facility] 08-22-2024 Note [facility] 08-21-2024 Note HNO ID: [id number] Author: IWONA DONATO RN Service: ? Author Type: Registered Nurse Type: Progress Notes Filed: 08/21/2024 16:09 Note Text: pcp agrees with information [facility] 08-21-2024 History of Presen t illness Narrative pcp agrees with information patient had inr completed at [facility] patients inr is 1.8 (patients inr range is 2.0-3.0) patient is currently taking 2mg Mon,Wed,Fri and 3mg all other days patients last dose change was on 07/05/24 due to a low level of 1.3 (dose at that time was 3mg ,,Tue and 2mg all other days) patient has had no changes in medication and no change in diet FYI - patient is currently holding coumadin for a procedure on and will restart on same dosing listed above on Tuesday Advised patient to continue on the same dose(s) and that they would only be contacted regarding dosage and follow up instructions after review with provider, if a change is needed. Written instructions given and patient verbalized understanding. Presently scheduled in 3 weeks (09/11/24) for follow up INR. documented in this encounter [facility] 08-21-2024 Note [facility] 08-06-2024 Telephone encounter Note Prescription Refill Information The patient has been identified by name and date of : Yes Caregiver verified no other encounters exist for this prescription request: Yes Caregiver confirmed with patient/requestor that no other refills are due, in the near future, with this provider at this time: Yes The last office visit in the department: 07-17-24 Does the patient have a future office visit with this provider/department: Yes Requested Prescriptions Pending Prescriptions Disp Refills potassium chloride ER (KLOR-CON) 20 mEq tablet 60 tablet 2 Sig: Take 1 tablet by mouth two times a day. María Petty August 06, 2024 11:17 AM [facility] 08-06-2024 Miscellaneous Notes Prescription Refill Information The patient has been identified by name and date of : Yes Caregiver verified no other encounters exist for this prescription request: Yes Caregiver confirmed with patient/requestor that no other refills are due, in the near future, with this provider at this time: Yes The last office visit in the department: 07-17-24 Does the patient have a future office visit with this provider/department: Yes Requested Prescriptions Pending Prescriptions Disp Refills potassium chloride ER (KLOR-CON) 20 mEq tablet 60 tablet 2 Sig: Take 1 tablet by mouth two times a day. María Petty August 06, 2024 11:17 AM documented in this encounter [facility] 08-02-2024 Note HNO ID: [id number] Author: IWONA DONATO, RN Service: ? Author Type: Registered Nurse Type: Progress Notes Filed: 08/02/2024 16:40 Note Text: pcp agrees [facility] 08-02-2024 History of Presen t illness Narrative pcp agrees patient had inr completed at [facility] patients inr is 2.9 (patients inr range is 2.0-3.0) patient is currently taking 2mg Mon,Wed,Fri and 3mg all other days patients last dose change was on 07/05/24 due to a low level of 1.3 (dose at that time was 3mg Tues,Th,Tue and 2mg all other days) patient has had no changes in medication and no missed doses and no change in diet Advised patient to continue on the same dose(s) and that they would only be contacted regarding dosage and follow up instructions after review with provider, if a change is needed. Written instructions given and patient verbalized understanding. Presently scheduled in 3 weeks (08/21/24) for follow up INR. documented in this encounter [facility] 07-31-2024 Telephone encounter Note ok [facility] 07-31-2024 Miscellaneous Notes ok patients orders for coumadin clinic inr's has at this time. new order has been pended for approval if possible so that patient can continue to get inr's completed thru the coumadin clinic. coumadin clinic nurse only needs called if order can not be approved. documented in this encounter [facility] 07-31-2024 Telephone encounter Note patients orders for coumadin clinic inr's has at this time. new order has been pended for approval if possible so that patient can continue to get inr's completed thru the coumadin clinic. coumadin clinic nurse only needs called if order can not be approved. [facility] 07-31-2024 Note [facility] 07-17-2024 Telephone encounter Note Prescription Refill Information The patient has been identified by name and date of : Yes Caregiver verified no other encounters exist for this prescription request: Yes Caregiver confirmed with patient/requestor that no other refills are due, in the near future, with this provider at this time: Yes The last office visit in the department: 07/17/24 Does the patient have a future office visit with this provider/department: Yes 01/29/25 Requested Prescriptions Pending Prescriptions Disp Refills simvastatin (ZOCOR) 80 mg tablet 90 tablet 3 Sig: Take 1 tablet by mouth daily at bedtime. Le Porras July 17, 2024 3:45 PM [facility] 07-17-2024 Miscellaneous Notes Prescription Refill Information The patient has been identified by name and date of : Yes Caregiver verified no other encounters exist for this prescription request: Yes Caregiver confirmed with patient/requestor that no other refills are due, in the near future, with this provider at this time: Yes The last office visit in the department: 07/17/24 Does the patient have a future office visit with this provider/department: Yes 01/29/25 Requested Prescriptions Pending Prescriptions Disp Refills simvastatin (ZOCOR) 80 mg tablet 90 tablet 3 Sig: Take 1 tablet by mouth daily at bedtime. Le Porras July 17, 2024 3:45 PM documented in this encounter [facility] 07-17-2024 Note HNO ID: [id number] Author: ANASTASIIA COLÓN APRN.CERTIFIED [employer] OFFICER Service: ? Author Type: Nurse Specialist Type: Progress Notes Filed: 07/17/2024 16:36 Note Text: Continue with Coumadin dose unchanged and check INR in 2 weeks [facility] 07-17-2024 History of Presen t illness Narrative Continue with Coumadin dose unchanged and check INR in 2 weeks patient had inr completed at [facility] patients inr is 2.1 (patients inr range is 2.0-3.0) patient is currently taking 2mg Mon,Wed,Fri and 3mg all other days patients last dose change was on 07/05/24 due to a low level of 1.3 (dose at that time was 3mg Tu,,Tue and 2mg all other days) patient has had no changes in medication and no missed doses and no change in diet Advised patient to continue on the same dose(s) and that they would only be contacted regarding dosage and follow up instructions after review with provider, if a change is needed. Written instructions given and patient verbalized understanding. Presently scheduled in 2 weeks (07/31/24) for follow up INR since this is the first normal reading since dose change documented in this encounter [facility] 07-17-2024 Note [facility] 07-17-2024 History of Presen t illness Narrative SUBJECTIVE: Diabetic Foot Exam due on 08/10/2023 Advance Directive Discussion due on 05/02/2024 HbA1C due on 06/28/2024 HPI Eri Kisha Pritchard is a 83 year old female. 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 She notes she is in her usual state of health. HPI excerpted from her previous visit: She was admitted to [facility] March 19 through April 05. She presented to the hospital with history of osteomyelitis and wet gangrene of the right foot. She underwent revision of the right lower extremity with revascularization per Dr. Espinoza. She underwent hematoma evacuation. She had a compartment fasciotomy on March 12, 2024. She underwent a right transmetatarsal amputation per Dr. Blanca.Consult was made to Dr. Giron for anemia and Hemoccult positive stool. She was noted to have oozing gastric ulcer and nonbleeding duodenal ulcers. She was started on pantoprazole twice daily. She was transferred to skilled rehab for debility. Discharged to home with [facility] home care. Today reports eating and drinking normally. No bowel or bladder complaints. She has [facility] home [facility] care coming out to her home. She has an appointment coming up with her artist mannequin coloring Dr. Blanca. She reports no upcoming appointment with vascular or with gastroenterology. She has noted no bleeding since she has been discharged home. She had a supratherapeutic INR and is holding Coumadin currently. Plans to hold this until tomorrow. INR tomorrow to be completed by home health care he will call with results. She notes foot is healing well assisted vascular bypass incision sites. No fever. She notes illness with cough runny nose decreased hearing ears are plugged with decrease in hearing. No fever.Not using flonase. States taking cold medicine one half dose and immodium. She notes leg and foot are healed. Dr. Giron is to repeat EGD. US to be completed of lower extremity is planned to check circulation Seeing Dr. Javier Manzo [employer]. Notes taking furosemide QD to BID, potassium two tablets daily. To coumadin clinic after leaving here to did today. Well controlled glucose, home BP and home HR noted. Yariel domínguez HTN: Without report of Last 3 Encounter BP Readings: Date: BP: 07/17/2024 131/65 06/04/2024 142/64 05/08/2024 117/54 DIABETES MELLITUS: Patient's last HgA1C was Hemoglobin A1C (%) Date Value 12/27/2023 6.9 09/15/2023 9.1 ) Review of Systems Constitutional: Negative. HENT: Positive for hearing loss, rhinorrhea and sinus pressure. Respiratory: Positive for cough. Skin: Positive for wound. Objective BP 131/65 Pulse 60 Resp 16 Wt 64 kg (141 lb 1.5 oz) BMI 25.40 kg/m Physical Exam Vitals and nursing note reviewed. Constitutional: Appearance: Normal appearance. HENT: Head: Normocephalic and atraumatic. Right Ear: Tympanic membrane and ear canal normal. Left Ear: Tympanic membrane normal. Nose: Rhinorrhea present. Mouth/Throat: Lips: Pharr. Mouth: Mucous membranes are moist. Pharynx: Oropharynx is clear. Eyes: Conjunctiva/sclera: Conjunctivae normal. Cardiovascular: Rate and Rhythm: Normal rate. Abdominal: General: Bowel sounds are normal. Palpations: Abdomen is soft. Skin: General: Skin is warm and dry. Comments: all areas healed Neurological: General: No focal deficit present. Mental Status: She is alert and oriented to person, place, and time. ALLERGIES Allergen Reactions Accupril [Quinapril] Unknown Calan [Verapamil] Unknown Cymbalta [Duloxetin* Intolerance dizziness Lotensin [Benazepri* Unknown Sulfa (Sulfonamide * Unknown Medications metoprolol succinate ER (TOPROL XL) 50 mg 24 hr tablet Take 1 tablet by mouth two times a day. sertraline (ZOLOFT) 25 mg tablet Take 1 tablet by mouth once daily. tiZANidine (ZANAFLEX) 4 mg tablet Take 1 tablet by mouth every 8 hours as needed. potassium chloride ER (KLOR-CON) 20 mEq tablet Take 1 tablet by mouth two times a day. warfarin (COUMADIN) 2 mg tablet Take 2 tablets by mouth once daily. gabapentin (NEURONTIN) 100 mg capsule Take 1 capsule by mouth two times a day for 180 days. clopidogrel (PLAVIX) 75 mg tablet Take 1 tablet by mouth once daily. magnesium chloride 64 mg magnesium tab Take 2 tablets by mouth once daily. pantoprazole DR (PROTONIX) 40 mg tablet Take 1 tablet by mouth every 12 hours. furosemide (LASIX) 40 mg tablet Take 1 tablet by mouth once daily. acetaminophen (TYLENOL) 500 mg tablet 1,000 mg. glimepiride (AMARYL) 2 mg tablet Take 1 tablet by mouth daily with breakfast. Check blood sugars daily, if remaining above 200 consistently in 2 to 4 weeks will increase the dose oxybutynin ER (DITROPAN XL) 10 mg 24 hr tablet Take 1 tablet by mouth once daily. simvastatin (ZOCOR) 80 mg tablet Take 1 tablet by mouth daily at bedtime. fluticasone (FLONASE) 50 mcg/actuation nasal spray Use 2 Sprays in each nostril once daily. ferrous sulfate 325 mg (65 mg iron) tablet Take 325 mg by mouth. PAST MEDICAL HISTORY Diagnosis Date Atrial fibrillation (HCC) Diabetes mellitus (HCC) Factor V deficiency (HCC) GERD (gastroesophageal reflux disease) TIA (transient ischemic attack) 2001 Social History Tobacco Use Smoking status: Never Vaping Use Vaping status: Never Used Substance Use Topics Alcohol use: Yes Comment: occ Drug use: Never ASSESSMENT/PLAN: 1. Type 2 diabetes mellitus with diabetic polyneuropathy, without long-term current use of insulin (HCC) - ICD9: 250.60, 357.2, ICD10: E11.42 (primary diagnosis) - Controlled - Continue current medications - HEMOGLOBIN A1C - BASIC METABOLIC PANEL 2. Hypokalemia - ICD9: 276.8, ICD10: E87.6 will recheck today, low at 2.9 on 07/10 per cardiology at [facility] Keep - BASIC METABOLIC PANEL 3. . Decreased hearing of both ears - ICD9: 389.9, ICD10: H91.93 Exam and report consistent with eustachian tube dysfunction recommend resuming Flonase, if not improved could to see ENT. - CONSULT TO ENT - FLUTICASONE PROPIONATE 50 MCG/ACTUATION NASAL SPRAY,SUSPENSION 5. Subclinical hypothyroidism - ICD9: 244.8, ICD10: E03.8 - TSH W/REFLEX FT4 6. History of anemia - ICD9: V12.3, ICD10: Z86.2 - COMPLETE BLOOD COUNT AND DIFFERENTIAL 7. S/P transmetatarsal amputation of foot, right (HCC) - ICD9: V49.73, ICD10: Z89.[address] Blanca 8. Stage 3b chronic kidney disease (HCC) - ICD9: 585.3, ICD10: N18.32 recheck labs today, avoid nephrotoxic medications and maintain adequate hydration 6 mo follow up MD Anastasiia Wilson APRN.CERTIFIED JUVENILE [employer]OBATION OFFICER Medical Decision Making: Problems: Moderate: 2+ stable chronic illnesses Data: Unique test(s) ordered: 3+ Risk: Moderate: Drug management Medical Decision Making Level: 4 - Moderate documented in this encounter [facility] 07-17-2024 Note [facility] 07-11-2024 Telephone encounter Note Home care Certification Form 485 received from [facility]. For cert dates 05/03/24-07/01/24 that were signed on 06/20/24. New Certification Patient's home health 485 form / care plan for stated certification period reviewed and signed. Relevant medical records were reviewed. No changes were indicated [facility] 07-11-2024 Miscellaneous Notes Home care Certification Form 485 received from [facility]. For cert dates 05/03/24-07/01/24 that were signed on 06/20/24. New Certification Patient's home health 485 form / care plan for stated certification period reviewed and signed. Relevant medical records were reviewed. No changes were indicated documented in this encounter [facility] 07-05-2024 Note HNO ID: [id number] Author: IWONA DONATO RN Service: ? Author Type: Registered Nurse Type: Progress Notes Filed: 07/05/2024 16:08 Note Text: PATIENT NOTIFIED OF INFORMATION [facility] 07-05-2024 History of Presen t illness Narrative PATIENT NOTIFIED OF INFORMATION Recommend Coumadin 6 mg today then Coumadin 3 mg Tuesday; 2 mg all other days. Check INR in 2 weeks. patient had inr completed at [facility] patients inr is 1.3 (patients inr range is 2.0-3.0) patient is currently taking 3mg ,,Sun and 2mg all other days patients last dose change was on 06/28/24 due to a low level of 1.3 (dose at that time was 3mg Thurs,Sun and 2mg all other days) patient has had a change in medication besides coumadin and patient just completed vancomycin treatment and no missed coumadin doses and no change in diet recommend: patient changes coumadin 2mg Mon,Wed,Fri and 3mg all other days and recheck in 2 weeks patient has been scheduled for a 2 week follow up inr on 07/17/24 - patient has appt with [facility] also this days please review and advise on recommendation patient only needs called if provider does not agree with recommendation documented in this encounter [facility] 07-05-2024 Note [facility] 07-05-2024 Note [facility] 06-28-2024 Telephone encounter Note The following approved medication requests have been transmitted electronically. Requested Prescriptions Pending Prescriptions Disp Refills metoprolol succinate ER (TOPROL XL) 50 mg 24 hr tablet 180 tablet 3 Sig: Take 1 tablet by mouth two times a day. Kierra Santiago MD [facility] 06-28-2024 Miscellaneous Notes The following approved medication requests have been transmitted electronically. Requested Prescriptions Pending Prescriptions Disp Refills metoprolol succinate ER (TOPROL XL) 50 mg 24 hr tablet 180 tablet 3 Sig: Take 1 tablet by mouth two times a day. Kierra Santiago MD PATIENT REPORTS PREVIOUS SIG WAS INCORRECT. SHE STATES SHE IS TO TAKE 50 MG ER 2X DAILY. PLEASE NOTIFY PATIENT IF PROVIDER HAS ADJUSTED SIG OUT OF NECESSITY. Prescription Refill Information The patient has been identified by name and date of : Yes Caregiver verified no other encounters exist for this prescription request: Yes Caregiver confirmed with patient/requestor that no other refills are due, in the near future, with this provider at this time: Yes The last office visit in the department: 04/27/25 Does the patient have a future office visit with this provider/department: Yes 07/17/24 Requested Prescriptions Pending Prescriptions Disp Refills metoprolol succinate ER (TOPROL XL) 50 mg 24 hr tablet 180 tablet 3 Sig: Take 1 tablet by mouth two times a day. Le Porras June 28, 2024 8:55 AM documented in this encounter [facility] 06-28-2024 Note HNO ID: [id number] Author: IWONA DONATO RN Service: ? Author Type: Registered Nurse Type: Progress Notes Filed: 06/28/2024 16:31 Note Text: PATIENT NOTIFIED OF INFORMATION [facility] 06-28-2024 History of Presen t illness Narrative PATIENT NOTIFIED OF INFORMATION Recommend Coumadin 3 mg Tuesday and and 2 mg all other days and check INR in 1 week. patient had inr completed at [facility] patients inr is 1.3 (patients inr range is 2.0-3.0) patient is currently taking 3mg Thurs,Sun and 2mg all other days patients last dose change was on 05/17/24 unknown reason patient has had a change in medication as patient is currently on vancomycin and no missed coumadin doses and no change in diet recommend: patient change coumadin to 3mg Tues,Thur, Sun and 2mg all other days and recheck in 1 week patient has been scheduled for a 1 week follow up inr on 07/05/24 please review and advise on recommendation patient only needs called if provider does not agree with recommendation documented in this encounter [facility] 06-28-2024 Note HNO ID: [id number] Author: ANASTASIIA COLÓN APRN.CERTIFIED JUVENILE PROBATION OFFICER Service: ? Author Type: Nurse Specialist Type: Progress Notes Filed: 06/28/2024 16:31 Note Text: Recommend Coumadin 3 mg Tuesday and and 2 mg all other days and check INR in 1 week. [facility] 06-28-2024 Note [facility] 06-28-2024 Telephone encounter Note PATIENT REPORTS PREVIOUS SIG WAS INCORRECT. SHE STATES SHE IS TO TAKE 50 MG ER 2X DAILY. PLEASE NOTIFY PATIENT IF PROVIDER HAS ADJUSTED SIG OUT OF NECESSITY. Prescription Refill Information The patient has been identified by name and date of : Yes Caregiver verified no other encounters exist for this prescription request: Yes Caregiver confirmed with patient/requestor that no other refills are due, in the near future, with this provider at this time: Yes The last office visit in the department: 04/27/25 Does the patient have a future office visit with this provider/department: Yes 07/17/24 Requested Prescriptions Pending Prescriptions Disp Refills metoprolol succinate ER (TOPROL XL) 50 mg 24 hr tablet 180 tablet 3 Sig: Take 1 tablet by mouth two times a day. Le Porras June 28, 2024 8:55 AM [facility] 06-14-2024 Note HNO ID: [id number] Author: SAVANAH HAIDER APRN.REPORT SPECIALIST Service: ? Author Type: Nurse Practitioner Type: Progress Notes Filed: 06/14/2024 10:45 Note Text: Agree with anticoag's recommendations [facility] 06-14-2024 History of Presen t illness Narrative Agree with anticoag's recommendations patient had inr completed at [facility] patients inr is 2.7 (patients inr range is 2.0-3.0) patient is currently taking 3mg Thurs,Sun and 2mg all other days patients last dose change was on 05/17/24 patient has had no changes in medication and no missed doses and no change in diet Advised patient to continue on the same dose(s) and that they would only be contacted regarding dosage and follow up instructions after review with provider, if a change is needed. Written instructions given and patient verbalized understanding. Presently scheduled in 2 weeks (06/28/24) for follow up INR. documented in this encounter [facility] 06-14-2024 Note [facility] 06-12-2024 Evaluation note Diagnosis Onset Date Resolution Carotid artery disease acute Fe bruary 2024 8:31am Diarrhea acute June 12, 2024 8:31am Peripheral vascular disease chronic June 12, 025 8:31am Diarrhea acute June 19, 2024 8:20am Gastric ulcer acute June 192024 8:20am GERD (gastroesophageal reflux disease) acute June 19, 2 025 8:20am Anticoagulant long-term use chronic June 20 2 025 9:53am Aortic valve stenosis chronic Feb ruary 2024 9:53am Chronic a-fib chronic June 202024 9:53am Hyperlipidemia chronic June 022024 9:53am Peripheral vascular disease chronic June 20, 2 025 9:53am Gastric ulcer acute August 22, 2024 11:25am [facility] Work Phone: 1(386) 831-220402-03-2025 [facility] History of Present illness Narrative* Terrence Jane MD - 06/04/2024 12:07 PM EST Images from the original note were not included. Terrence Jane MD Interventional Cardiology [address] [id number] [phone] Chief Complaint Patient presents with: Follow Up: discuss carotid ultrasound results HISTORY OF PRESENT ILLNESS: Ms. Pritchard is a 83 year old female seen in my office for follow-up prior history of paroxysmal atrial fibrillation on anticoagulation because of hypercoagulable state and prior paroxysmal atrial fibrillation is doing well she comes in for follow-up asymptomatic denies chest pain or shortness of breath No signs or symptoms of congestive heart failure Echocardiography shows mild aortic sclerosis with no stenosis and normal LV function Cardiac Risk Factors age (male over 45, female over 55), hyperlipidemia, hypertension PAST MEDICAL HISTORY Diagnosis Date Atrial fibrillation (HCC) Diabetes mellitus (HCC) Factor V deficiency (HCC) GERD (gastroesophageal reflux disease) TIA (transient ischemic attack) 2001 PAST SURGICAL HISTORY Procedure Laterality Date CAROTID ENDARTERECTOMY Right COLON SURGERY HX HYSTERECTOMY HX REMV CATARACT EXTRACAP,INSERT LENS bilateral 2016 FAMILY HISTORY Problem Relation Age of Onset Clotting Disorder Mother Stroke Father Liver Disease Sister cirrhosis Heart Attack Brother CHF Glaucoma No Family History Macular Degen No Family History Social History Tobacco Use Smoking status: Never Vaping Use Vaping status: Never Used Substance Use Topics Alcohol use: Yes Comment: occ Drug use: Never ALLERGIES Allergen Reactions Accupril [Quinapril] Unknown Calan [Verapamil] Unknown Cymbalta [Duloxetin* Intolerance dizziness Lotensin [Benazepri* Unknown Sulfa (Sulfonamide * Unknown Medications: Current Outpatient Medications Medication Sig Dispense Refill potassium chloride ER (KLOR-CON) 20 mEq tablet Take 1 tablet by mouth two times a day. 60 tablet 2 warfarin (COUMADIN) 2 mg tablet Take 2 tablets by mouth once daily. 90 tablet 3 metoprolol succinate ER (TOPROL XL) 50 mg 24 hr tablet Take 0.5 tablets by mouth once daily. 45 tablet 3 gabapentin (NEURONTIN) 100 mg capsule Take 1 capsule by mouth two times a day for 180 days. 180 capsule 1 clopidogrel (PLAVIX) 75 mg tablet Take 1 tablet by mouth once daily. 90 tablet 3 tiZANidine (ZANAFLEX) 2 mg tablet TAKE 2 TABLETS BY MOUTH EVERY 8 HOURS NEEDED FOR MUSCLE SPASM FOR 30 DAYS magnesium chloride 64 mg magnesium tab Take 2 tablets by mouth once daily. [address] (PROTONIX) 40 mg tablet Take 1 tablet by mouth every 12 hours. 180 tablet 1 sertraline (ZOLOFT) 25 mg tablet Take 1 tablet by mouth once daily. 30 tablet 2 furosemide (LASIX) 40 mg tablet Take 1 tablet by mouth once daily. acetaminophen (TYLENOL) 500 mg tablet 1,000 mg. glimepiride (AMARYL) 2 mg tablet Take 1 tablet by mouth daily with breakfast. Check blood sugars daily, if remaining above 200 consistently in 2 to 4 weeks will increase the dose 90 tablet 3 oxybutynin ER (DITROPAN XL) 10 mg 24 hr tablet Take 1 tablet by mouth once daily. 90 tablet 3 simvastatin (ZOCOR) 80 mg tablet Take 1 tablet by mouth daily at bedtime. 90 tablet 3 fluticasone (FLONASE) 50 mcg/actuation nasal spray Use 2 Sprays in each nostril once daily. 1 Each 11 ferrous sulfate 325 mg (65 mg iron) tablet Take 325 mg by mouth. No current facility-administered medications for this visit. Review of Systems Constitutional: Negative for chills, diaphoresis, fever, malaise/fatigue and weight loss. HENT: Negative for congestion, ear discharge, ear pain, hearing loss, nosebleeds, sinus pain, sore throat and tinnitus. Eyes: Negative for blurred vision, double vision, photophobia, pain, discharge and redness. Respiratory: Negative for cough, hemoptysis, sputum production, shortness of breath, wheezing and stridor. Cardiovascular: Negative for chest pain, palpitations, orthopnea, claudication, leg swelling and PND. Gastrointestinal: Negative for abdominal pain, blood in stool, constipation, diarrhea, heartburn, melena, nausea and vomiting. Genitourinary: Negative for dysuria, flank pain, frequency, hematuria and urgency. Musculoskeletal: Negative for back pain, falls, joint pain, myalgias and neck pain. Skin: Negative for itching and rash. Neurological: Negative for dizziness, tingling, tremors, sensory change, speech change, focal weakness, seizures, loss of consciousness, weakness and headaches. Endo/Heme/Allergies: Negative for environmental allergies and polydipsia. Does not bruise/bleed easily. Psychiatric/Behavioral: Negative for depression, hallucinations, memory loss, substance abuse and suicidal ideas. The patient is not nervous/anxious and does not have insomnia. Physical Examination: Vitals:BP 142/64 Pulse 63 Resp 12 Ht 5' 2.5 (1.59m) Wt 143 lb (64.9kg) SpO2 97% BMI 25.72 kg/(m^2). BP w/Orthostatic Vitals Date and Time Orthostatic BP Orthostatic Pulse BP Pulse BP Position BP Site BP Cuff Size 06/04/24 1134 -- -- 142/64 63 Sitting Right Arm Regular Adult Peak Flow Date and Time PF Resp 06/04/24 1134 -- 12 Last 2 Encounter Wt Readings: Date: Wt: 06/04/2024 64.9 kg (143 lb) 04/23/2024 64.9 kg (143 lb) Physical Exam Constitutional: General: She is not in acute distress. Appearance: She is not diaphoretic. HENT: Head: Normocephalic and atraumatic. Right Ear: External ear normal. Left Ear: External ear normal. Nose: Nose normal. Mouth/Throat: Pharynx: Oropharynx is clear. Eyes: General: Right eye: No discharge. Left eye: No discharge. Conjunctiva/sclera: Conjunctivae normal. Pupils: Pupils are equal, round, and reactive to light. Cardiovascular: Rate and Rhythm: Normal rate and regular rhythm. Heart sounds: Normal heart sounds, S1 normal and S2 normal. No murmur heard. No friction rub. No gallop. No S3 or S4 sounds. Pulmonary: Effort: Pulmonary effort is normal. No respiratory distress. Breath sounds: Normal breath sounds. No wheezing or rales. Chest: Chest wall: No tenderness. Abdominal: General: Abdomen is flat. Musculoskeletal: General: Normal range of motion. Cervical back: Normal range of motion and neck supple. Skin: General: Skin is warm and dry. Neurological: Mental Status: She is alert and oriented to person, place, and time. Psychiatric: Mood and Affect: Mood normal. Thought Content: Thought content normal. Judgment: Judgment normal. Pertinent Labs: CBC: Hemoglobin (g/dL) Date Value 02/23/2024 13.5 Hematocrit (%) Date Value 02/23/2024 42.4 WBC (k/uL) Date Value 02/23/2024 6.96 Platelet Count (k/uL) Date Value 02/23/2024 237 BMP: Glucose (mg/dL) Date Value 04/09/2024 149 Potassium (mmol/L) Date Value 04/09/2024 4.4 Sodium (mmol/L) Date Value 04/09/2024 137 Chloride (mmol/L) Date Value 04/09/2024 103 CO2 (mmol/L) Date Value 04/09/2024 18 Creatinine (mg/dL) Date Value 04/09/2024 0.82 BUN (mg/dL) Date Value 04/09/2024 27 Anion Gap (mmol/L) Date Value 04/09/2024 16 Calcium, Total (mg/dL) Date Value 04/09/2024 10.3 INR: Lipid Profile: Cholesterol, Total Date Value Ref Range Status 12/27/2023 118 <200 mg/dL Final Comment: <200 mg/dL, Desirable 200-239 mg/dL, Borderline high >239 mg/dL, High HDL Cholesterol Date Value Ref Range Status 12/27/2023 22 (L) >39 mg/dL Final Comment: 40-59 mg/dL, Acceptable >59 mg/dL, High: Negative risk factor for coronary heart disease <40 mg/dL, Low: Positive risk factor for coronary heart disease LDL Cholesterol Date Value Ref Range Status 12/27/2023 33 <100 mg/dL Final Comment: <100 mg/dL, Optimal 100-129 mg/dL, Near optimal/above optimal 130-159 mg/dL, Borderline high 160-189 mg/dL, High >189 mg/dL, Very high Secondary prevention optimal LDL Cholesterol levels are recommended to be < 70 mg/dL Triglyceride Date Value Ref Range Status 12/27/2023 315 (H) <150 mg/dL Final Comment: <150 mg/dL, Normal 150-199 mg/dL, Borderline high 200-499 mg/dL, High >499 mg/dL, Very high Hemoglobin A1C: No results found for: HGBA1C TSH: No results found for: TSHREFL Prior Cardiac Testing None Assessment and Plan: 83 years old with history of atrial fibrillation and PVD ASSESSMENT/PLAN: 1. Pure hypercholesterolemia - ICD9: 272.0, ICD10: E78.00 (primary diagnosis) On statin 2. Primary hypertension - ICD9: 401.9, ICD10: I10 - Controlled - Continue current medications - Recommend home blood pressure monitoring, to bring results to next visit - Encouraged sodium restriction, DASH or Mediterranean diet - Recommend regular aerobic exercise 3. 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 Acute on chronic congestive heart failure, unspecified heart failure type (HCC) - ICD9: 428.0, ICD10: I50.9 - HFpEF 50+ - Continue current medications 5. Atrial fibrillation, unspecified type (HCC) - ICD9: 427.31, ICD10: I48.91 Currently in sinus rhythm On coumadin. Terrence Jane MD Follow up planning: Follow up with [facility] Electronically signed by Terrence Jane MD on June 04, 2024, 12:07 PM The above note was partially created using a dictation recognition software. A reasonable attempt has been made to correct any errors. [facility] Telephone encounter Note * Telephone Encounter - Judy Ramos RN - 05/29/2024 9:52 AM EST Patient scheduled for OV 04/04/25, spoke with patient she was able to see Dr. Rojas and no longer needs the appt with [facility]01-28-2025 Miscellaneous Notes* Telephone Encounter - Judy Ramos RN - 05/29/2024 9:52 AM EST Patient scheduled for OV 04/04/25, spoke with patient she was able to see Dr. Rojas and no longer needs the appt with documented in [facility] Telephone encounter Note * Telephone Encounter - Concetta Sanchez LPN - 05/23/2024 11:59 AM EST Phoned patient and reviewed message with her and she voiced understanding by repeating back the orders. Concetta Sanchez LPN [facility]01-22-2025 Miscellaneous Notes* Telephone Encounter - Concetta Sanchez LPN - 05/23/2024 11:59 AM EST Phoned patient and reviewed message with her and she voiced understanding by repeating back the orders. Concetta Sanchez LPN * Telephone Encounter - Kailee Koch MD - 05/23/2024 11:47 AM EST INR therapeutic. Continue current coumadin dosage and follow up in 2 weeks. * Telephone Encounter - Emiyl Bustos LPN - 05/23/2024 11:03 AM EST Last INR: INR (POCT) 2.1 05/23/2024 Current dose of coumadin is: 3 mg TH and Sun and 2 mg all other days. Last date of dose change: 05/16/24. Previous INR (date and result): 05/16/24 1.5 Additional Clinical Information or narrative: no nothing to reports per Qasim. Denies any bleeding, bruising, change in medications, change in diet Please advise pt with results and advise on coumadin. Notified Qasim if he needs to repeat INR next Tuesday when he sees opt again. Emily Bustos LPN ROUTING TO PROVIDER MAINTENANCE SHOP MANAGER DR. KOCH. PT'S PROVIDER /TEAM IS OUT. Emily Bustos LPN documented in [facility] encounterReg[facility]25 Telephone encounter Note * Telephone Encounter - Kailee Koch MD - 05/23/2024 11:47 AM EST INR therapeutic. Continue current coumadin dosage and follow up in 2 weeks. [facility] Work Phone: 1(154) 291-296301-22-2025 Telephone encounter Note* Telephone Encounter - Emily Bustos LPN - 05/23/2024 11:03 AM EST Last INR: INR (POCT) 2.1 05/23/2024 Current dose of coumadin is: 3 mg TH and Sun and 2 mg all other days. Last date of dose change: 05/16/24. Previous INR (date and result): 05/16/24 1.5 Additional Clinical Information or narrative: no nothing to reports per Qasim. Denies any bleeding, bruising, change in medications, change in diet Please advise pt with results and advise on coumadin. Notified Qasim if he needs to repeat INR next Tuesday when he sees opt again. Emily Bustos LPN ROUTING TO PROVIDER MAINTENANCE SHOP MANAGER DR. KOCH. PT'S PROVIDER /TEAM IS OUT. Emily Bustos LPN [facility]01-20-2025 Telephone encounter Note* Telephone Encounter - Glenda Eastman RN - 05/21/2024 5:13 PM EST Patient called and notified. Glenda Eastman RN [facility]01-20-2025 Miscellaneous Notes* Telephone Encounter - Glenda Eastman RN - 05/21/2024 5:13 PM EST Patient called and notified. Glenda Eastman RN * Telephone Encounter - Glenda Eastman RN - 05/21/2024 5:12 PM EST ----- Message from Terrence Jane MD sent at 05/18/2024 5:37 PM EST ----- Normal Echo Please Inform the patient babak documented in this encounterReg[facility]-2025 Telephone encounter Note * Telephone Encounter - Glenda Eastman RN - 05/21/2024 5:12 PM EST ----- Message from Terrence Jane MD sent at 05/18/2024 5:37 PM EST ----- Normal Echo Please Inform the patient babak [facility]01-16-2025 Telephone encounter Note* Telephone Encounter - Krys Townsend RN - 05/17/2024 1:30 PM EST Called and left a detailed voicemail notifying Qasim from [facility] of providers message. Clinic phone number was left in case he had any questions. Pt called and is notified of providers results and instructions. Pt voices understanding. She states she will come back to the [facility] when she doesn't have HH anymore. Updated Anticoag tracker. Krys Townsend RN [facility]01-16-2025 Miscellaneous Notes* Telephone Encounter - Krys Townsend RN - 05/17/2024 1:30 PM EST Called and left a detailed voicemail notifying Qasim from [facility] of providers message. Clinic phone number was left in case he had any questions. Pt called and is notified of providers results and instructions. Pt voices understanding. She states she will come back to the [facility] when she doesn't have HH anymore. Updated Anticoag tracker. Krys Townsend RN * Telephone Encounter - Kierra Santiago MD - 05/16/2024 7:18 PM EST Noted med adjustment per cardiology. How will patient get INR after HHN no longer following. Noted INR down again. Take 3 mg then increase to 2 mg daily except 3 mg on Sundays. INR next Tuesday * Telephone Encounter - Prerna Greenfield RN - 05/16/2024 10:23 AM EST Qasim from [facility] calls and states that usp is extending 1 time a week x 2 weeks. Qasim also reports that patient saw Dr. [facility] and patient was started on losartan/hctz 100-12.5 daily. Last INR: INR (POCT) 1.5 (ext) 05/16/2024 Current dose of coumadin is: 2 mg Daily. Last date of dose change: 04/23/2024 . Previous INR (date and result): 05/09/2024 1.9 Additional Clinical Information or narrative: no No changes in Diet. No signs/symptoms of bleeding or bruising. documented in this encounterReg[facility]25 Telephone encounter Note * Telephone Encounter - Kierra Santiago MD - 05/16/2024 7:18 PM EST Noted med adjustment per cardiology. How will patient get INR after HHN no longer following. Noted INR down again. Take 3 mg then increase to 2 mg daily except 3 mg on Sundays. INR next Tuesday [facility]01-15-2025 Telephone encounter Note* Telephone Encounter - Prerna Greenfield RN - 05/16/2024 10:23 AM EST Qasim from [facility] calls and states that usp is extending 1 time a week x 2 weeks. Qasim also reports that patient saw Dr. [facility] and patient was started on losartan/hctz 100-12.5 daily. Last INR: INR (POCT) 1.5 (ext) 05/16/2024 Current dose of coumadin is: 2 mg Daily. Last date of dose change: 04/23/2024 . Previous INR (date and result): 05/09/2024 1.9 Additional Clinical Information or narrative: no No changes in Diet. No signs/symptoms of bleeding or bruising. [facility]01-14-2025 Telephone encounter Note* Telephone Encounter - Kierra Santiago MD - 05/15/2024 4:16 PM EST Noted [facility]01-14-2025 Miscellaneous Notes* Telephone Encounter - Kierra Santiago MD - 05/15/2024 4:16 PM EST Noted * Telephone Encounter - Daisy Howard LPN - 05/15/2024 3:35 PM EST PATIENT NOTIFIED OF SAME. Patient is planning on getting labs done in the next couple of week at [facility]. 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 * Telephone Encounter - Kierra Santiago MD - 05/14/2024 7:06 PM EST Reviewed was given RX when discharged from TCU by Dr. Smith for twice daily 60 pills, no refills in April. RX was filled 04/06 so might have run out by now. Verify if has had recent labs done outside of [facility] system. Noted 05/12 triage call and told to be seen but not appointment made yet and did not go to [facility]. The following approved medication requests have been transmitted electronically. Requested Prescriptions Signed Prescriptions Disp Refills potassium chloride ER (KLOR-CON) 20 mEq tablet 60 tablet 2 Sig: Take 1 tablet by mouth two times a day. Authorizing Provider: KIERRA SANTIAGO MD * Telephone Encounter - Cherelle Aguillon - 05/14/2024 9:02 AM EST Patient has been identified by name and date of : Yes Patient phones for refill(s): Requested Prescriptions Pending Prescriptions Disp Refills potassium chloride ER (KLOR-CON) 20 mEq tablet Date of last office visit in primary care: 04/17/2024 Date of next office visit in primary care: 07/17/2024 Please advise. Thank you. Cherelle Aguillon. documented in this encounterReg[facility] Telephone encounter Note * Telephone Encounter - Daisy Howard LPN - 05/15/2024 3:35 PM EST PATIENT NOTIFIED OF SAME. Patient is planning on getting labs done in the next couple of week at [facility]. 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 [facility]01-14-2025 Telephone encounter Note* Telephone Encounter - Anastasiia Colón APRN.CNS - 05/15/2024 9:19 AM EST noted, agree [facility]01-14-2025 Miscellaneous Notes* Telephone Encounter - Anastasiia Colón APRN.CNS - 05/15/2024 9:19 AM EST noted, agree * Telephone Encounter - Noemi Cullen RN - 05/14/2024 10:04 AM EST Contacted patient and she is riding in a car at time of call. Reports her BP this morning before BPmedication was 175/69. Asymptomatic. Patient advised to recheck BP when she returned home later and call PCP office if systolic remains elevated above 150, per provider's note in 05/03/24 phone encounter. Pt has Cardiology appointment on 06/04/24 and Vascular appointment on 06/05/24. Noemi Cullen RN * Telephone Encounter - Cherelle Aguillon - 05/14/2024 9:03 AM EST Eri is calling Kierra Santiago MD today with concern regarding her BP has been running high. Shestated she usually takes Losartin with Metoprolol if her BP was running high. Please advise. Patient has been identified by name and birthdate. Duration of symptoms: N/A Person calling: self Call patient at: at home [phone] (home) [phone] (cell) Was an appointment scheduled: No Closing statement: Symptom Call: Thank you for calling [facility], your call is very important. A nurse will call in approximately 2-4 hours during business hours. If this is an emergency, please contact 911. Cherelle Aguillon documented in this encounterReg[facility]01[facility]25 Telephone encounter Note * Telephone Encounter - Kierra Santiago MD - 05/14/2024 7:06 PM EST Reviewed was given RX when discharged from TCU by Dr. Smith for twice daily 60 pills, no refills in April. RX was filled 04/06 so might have run out by now. Verify if has had recent labs done outside of [facility] system. Noted 05/12 triage call and told to be seen but not appointment made yet and did not go to [facility] here. The following approved medication requests have been transmitted electronically. Requested Prescriptions Signed Prescriptions Disp Refills potassium chloride ER (KLOR-CON) 20 mEq tablet 60 tablet 2 Sig: Take 1 tablet by mouth two times a day. Authorizing Provider: KIERRA SANTIAGO MD [facility]01-13-2025 Evaluation note* Diagnosis Onset Date Resolution Status Admit Date Anticoagulant long-term use chronic May 14, 2024 1:25pm Aortic valve stenosis chronic May ua2024 1:25pm Chronic a-fib chronic May 1:25pm Hyperlipidemia chronic May 142024 1:25pm Peripheral vascular disease chronic May 14, 2024 1:25pm Carotid artery disease acute bru2024 8:31am Diarrhea acute June 12, 2024 8:31am Peripheral vascular disease chronic June 12, 2024 8:31am Diarrhea acute June 19, 2024 8:20am Gastric ulcer acute June 192024 8:20am GERD (gastroesophageal reflu x disease) acute June 19, 025 8:20am Anticoagulant long-term use chronic June 20, 2024 9:53am Aortic valve stenosis chronic Feb ruary 2024 9:53am Chronic a-fib chronic June 202024 9:53am Hyperlipidemia chronic June 022024 9:53am Peripheral vascular disease chronic June 20, 2024 9:53am [facility] Work Phone: 1(577) 110-402201-13-2025 Telephone encounter Note* Telephone Encounter - Noemi Cullen RN - 05/14/2024 10:04 AM EST Contacted patient and she is riding in a car at time of call. Reports her BP this morning before BPmedication was 175/69. Asymptomatic. Patient advised to recheck BP when she returned home later and call PCP office if systolic remains elevated above 150, per provider's note in 05/03/24 phone encounter. Pt has Cardiology appointment on 06/04/24 and Vascular appointment on 06/05/24. Noemi Cullen RN [facility]01-13-2025 Telephone encounter Note* Telephone Encounter - Cherelle Aguillon - 05/14/2024 9:03 AM EST Eri is calling Kierra Santiago MD today with concern regarding her BP has been running high. Shestated she usually takes Losartin with Metoprolol if her BP was running high. Please advise. Patient has been identified by name and birthdate. Duration of symptoms: N/A Person calling: self Call patient at: at home [phone] (home) [phone] (cell) Was an appointment scheduled: No Closing statement: Symptom Call: Thank you for calling [facility], your call is very important. A nurse will call in approximately 2-4 hours during business hours. If this is an emergency, please contact 911. Cherelle Aguillon [facility]01-13-2025 Telephone encounter Note* Telephone Encounter - Cherelle Aguillon - 05/14/2024 9:02 AM EST Patient has been identified by name and date of : Yes Patient phones for refill(s): Requested Prescriptions Pending Prescriptions Disp Refills potassium chloride ER (KLOR-CON) 20 mEq tablet Date of last office visit in primary care: 04/17/2024 Date of next office visit in primary care: 07/17/2024 Please advise. Thank you. Cherelle Aguillon. [facility]01-11-2025 Telephone encounter Note* Telephone Encounter - Nallely An RN - 05/12/2024 12:01 PM EST Reason for Call: High blood pressure the last 3 mornings Outcome: Patient was conferenced to [facility] in [facility]ointment [facility] for PCP within 3 day scheduling. Advised Urgent/[facility] if no appointments available. Reason for Disposition [1] Taking BP medications AND [2] feels is having side effects (e.g., impotence, cough, dizzy upon standing) Answer Assessment - Initial Assessment Questions 1. BLOOD PRESSURE: 05/12/24 9:00 AM 187/77 11:45 AM 143/74 2. ONSET: 05/10/2305/11/24 This morning 3. HOW: Home Blood Pressure Monitor 4. HISTORY Since 1979, has taken metoprolol and Losartan/HCTZ 5. MEDICINES: metoprolol 6. OTHER SYMPTOMS: Denies any other symptoms 7. : N/A Patient is drinking usual amount of fluids (56 ounces) and urinating usual to a little more than usual amount and frequency, last urination 05/12/24 at 11:45 AM. Discontinuation of Losartan-HCTZ is medication change within the past 30 days. Protocols used: Blood Pressure - [id number] [facility]01-11-2025 Miscellaneous Notes* Telephone Encounter - Nallely An RN - 05/12/2024 12:01 PM EST Reason for Call: High blood pressure the last 3 mornings Outcome: Patient was conferenced to [facility] in Appointment Center for PCP within 3 day scheduling. Advised Urgent/[facility] if no appointments available. Reason for Disposition [1] Taking BP medications AND [2] feels is having side effects (e.g., impotence, cough, dizzy upon standing) Answer Assessment - Initial Assessment Questions 1. BLOOD PRESSURE: 05/12/24 9:00 AM 187/77 11:45 AM 143/74 2. ONSET: 05/10/2305/11/24 This morning 3. HOW: Home Blood Pressure Monitor 4. HISTORY Since 1979, has taken metoprolol and Losartan/HCTZ 5. MEDICINES: metoprolol 6. OTHER SYMPTOMS: Denies any other symptoms 7. : N/A Patient is drinking usual amount of fluids (56 ounces) and urinating usual to a little more than usual amount and frequency, last urination 05/12/24 at 11:45 AM. Discontinuation of Losartan-HCTZ is medication change within the past 30 days. Protocols used: Blood Pressure - [id number] documented in this encounterReg[facility]01-[facility]-2025 Telephone encounter Note * Telephone Encounter - Daisy Howard LPN - 05/09/2024 4:13 PM EST PATIENT NOTIFIED OF SAME. Message left on Qasim's voicemail with the below instructions. [facility]01-08-2025 Miscellaneous Notes* Telephone Encounter - Daisy Howard LPN - 05/09/2024 4:13 PM EST PATIENT NOTIFIED OF SAME. Message left on Qasim's voicemail with the below instructions. * Telephone Encounter - Kierra Santiago MD - 05/09/2024 2:10 PM EST Stay on same dose and recheck INR in 1 week Noted BP labile. Stay on same dose but if SBP is below 100, may hold metoprolol evening dose (If BP the next AM is high, can take metoprolol dose then). She can review BPs with cardiology to see if they want to adjust meds otherwise. * Telephone Encounter - Noemi Cullen RN - 05/09/2024 11:05 AM EST Qasim, Nurse with [facility] calling with an update on patient. Reports today's home INR is 1.9. Patient taking warfarin 1 mg Tues and Fri and 2 mg all other days.Please advise patient with orders. Last INR: INR (POCT) 1.9 (ext) 05/09/2024 Current dose of coumadin is: 1 mg Tues and Fri and 2 mg all other days Last date of dose change: 04/23/24. Previous INR (date and result): 2.5 (ext) 05/01/24 Additional Clinical Information or narrative: no Qasim also reports pt's blood pressures have been fluctuating drastically over the past 2 weeks. This morning BP was 92/48, yesterday was 117/54. Other times within the past 2 weeks her BP has went upto 180's/80's. Patient currently taking Furosemide 40 mg every morning and Metoprolol ER 25 mg every evening. Does have a little lightheadedness when BP's are lower. Pt sees Vascular and has head andneck CT ordered for 05/18. Sees cardiology on 06/04.Nurse Qasim states he is having patient log her BP every morning and evening and nurse to visit pt again next Tuesday. Please call Qasim with any new orders, . Noemi Cullen RN documented in this encounterReg[facility]01-[facility]-2025 Telephone encounter Note * Telephone Encounter - Kierra Santiago MD - 05/09/2024 2:10 PM EST Stay on same dose and recheck INR in 1 week Noted BP labile. Stay on same dose but if SBP is below 100, may hold metoprolol evening dose (If BP the next AM is high, can take metoprolol dose then). She can review BPs with cardiology to see if they want to adjust meds otherwise. [facility]01-08-2025 Telephone encounter Note* Telephone Encounter - Noemi Cullen RN - 05/09/2024 11:05 AM EST Qasim, Nurse with [facility] calling with an update on patient. Reports today's home INR is 1.9. Patient taking warfarin 1 mg Tues and Fri and 2 mg all other days.Please advise patient with orders. Last INR: INR (POCT) 1.9 (ext) 05/09/2024 Current dose of coumadin is: 1 mg Tues and Tue and 2 mg all other days Last date of dose change: 04/23/24. Previous INR (date and result): 2.5 (ext) 05/01/24 Additional Clinical Information or narrative: no Qasim also reports pt's blood pressures have been fluctuating drastically over the past 2 weeks. This morning BP was 92/48, yesterday was 117/54. Other times within the past 2 weeks her BP has went upto 180's/80's. Patient currently taking Furosemide 40 mg every morning and Metoprolol ER 25 mg every evening. Does have a little lightheadedness when BP's are lower. Pt sees Vascular and has head andneck CT ordered for 05/18. Sees cardiology on 06/04.Nurse Qasim states he is having patient log her BP every morning and evening and HH nurse to visit pt again next Tuesday. Please call Qasim with any new orders, . Noemi Cullen RN [facility]01[facility]07[facility] History of Present illness Narrative* Mary Kay Delgado, DO - 05/08/2024 8:49 AM EST Images from the original note were not included. [facility] , V[facility] Thor[facility] [place] DEPARTMENT OF VASCULAR SURGERY OUTPATIENT VISIT DATE May 08, 2024 OUTPATIENT VISIT TYPE ESTABLISHED SERVICE DATE: 05/08/2024 SERVICE TIME: 8:49 AM PRIMARY CARE PHYSICIAN: Kierra Santiago MD HISTORY OF PRESENT ILLNESS: Ms. Pritchard is a 83 year old female who presents today for a vascular surgery follow-up visit for carotid disease. She states she has been having some issues with hypertension. In March she underwent revascularization with Dr. Rojas at [facility]. At that time she was also diagnosed with anemia and found to have gastric ulcer. PAST MEDICAL HISTORY Diagnosis Date Atrial fibrillation (HCC) Diabetes mellitus (HCC) Factor V deficiency (HCC) GERD (gastroesophageal reflux disease) TIA (transient ischemic attack) 2002 PAST SURGICAL HISTORY Procedure Laterality Date CAROTID ENDARTERECTOMY Right COLON SURGERY HX HYSTERECTOMY HX REMV CATARACT EXTRACAP,INSERT LENS bilateral 2017 SOCIAL HISTORY Social History Tobacco Use Smoking status: Never Vaping Use Vaping status: Never Used Substance Use Topics Alcohol use: Yes Comment: occ Drug use: Never MEDICATIONS: warfarin (COUMADIN) 2 mg tablet Take 2 tablets by mouth once daily. metoprolol succinate ER (TOPROL XL) 50 mg 24 hr tablet Take 0.5 tablets by mouth once daily. gabapentin (NEURONTIN) 100 mg capsule Take 1 capsule by mouth two times a day for 180 days. clopidogrel (PLAVIX) 75 mg tablet Take 1 tablet by mouth once daily. potassium chloride ER (KLOR-CON) 20 mEq tablet TWICE DAILY WITH MEALS tiZANidine (ZANAFLEX) 2 mg tablet TAKE 2 TABLETS BY MOUTH EVERY 8 HOURS NEEDED FOR MUSCLE SPASM FOR 30 DAYS oxyCODONE IR (ROXICODONE) 5 mg immediate release tablet TAKE 2 TABLETS BY MOUTH EVERY 4 HOURS NEEDED FOR PAIN SCORE (4-10) FOR 7 DAYS magnesium chloride 64 mg magnesium tab Take 2 tablets by mouth once daily. pantoprazole DR (PROTONIX) 40 mg tablet Take 1 tablet by mouth every 12 hours. sertraline (ZOLOFT) 25 mg tablet Take 1 tablet by mouth once daily. furosemide (LASIX) 40 mg tablet Take 1 tablet by mouth once daily. acetaminophen (TYLENOL) 500 mg tablet 1,000 mg. docusate sodium (STOOL SOFTENER ORAL) Take by mouth. glimepiride (AMARYL) 2 mg tablet Take 1 tablet by mouth daily with breakfast. Check blood sugars daily, if remaining above 200 consistently in 2 to 4 weeks will increase the dose oxybutynin ER (DITROPAN XL) 10 mg 24 hr tablet Take 1 tablet by mouth once daily. simvastatin (ZOCOR) 80 mg tablet Take 1 tablet by mouth daily at bedtime. fluticasone (FLONASE) 50 mcg/actuation nasal spray Use 2 Sprays in each nostril once daily. ferrous sulfate 325 mg (65 mg iron) tablet Take 325 mg by mouth. Miscellaneous Medical Supply Take 1 Each by mouth two times a day. Biote [place] 3+CoQ10 --30 mg of CoQ10 ALLERGIES: ALLERGIES Allergen Reactions Accupril [Quinapril] Unknown Calan [Verapamil] Unknown Cymbalta [Duloxetin* Intolerance dizziness Lotensin [Benazepri* Unknown Sulfa (Sulfonamide * Unknown PHYSICAL EXAM: BP 117/54 (BP Site: Right Arm, BP Position: Sitting, BP Cuff Size: Regular Adult) Pulse (!) 55 SpO2 98% General: Alert and oriented Integumentary: left lateral thigh hematoma and ecchymosis HEENT: EOM, pupils equal, round and reactive. Extremities: Right leg healed bypass incisions, right TMA Neurological: Normal cognition and motor skills. Diagnostic tests reviewed for today's visit: Most recent labs Most recent imaging Carotid Duplex When compared with the prior study, of 09/29/2023 no significant change is noted on the right side and no significant change is noted on the left side. RIGHT SIDE Common carotid artery: Plaque visualized without evidence of hemodynamically significant stenosis. Endarterectomy patch at distal : 0.8 cm. Internal carotid artery: 50-69% stenosis consistent with moderate carotid artery disease. Endarterectomy patch at origin . Vertebral artery: Patent and antegrade flow noted. Subclavian artery: Plaque visualized without evidence of hemodynamically significant stenosis. LEFT SIDE Common carotid artery: Plaque visualized without evidence of hemodynamically significant stenosis. Internal carotid artery: >70% stenosis consistent with severe carotid artery disease. Findings may be underestimated due to calcified shadowing plaque at origin . External carotid artery: Elevated velocities and plaque noted. Vertebral artery: Patent and antegrade flow noted. Subclavian artery: Patent. IMPRESSION: Ms. Pritchard is a 83 year old female with high grade carotid artery disease . PLAN and RECOMMENDATIONS: Reviewed duplex findings Recommend CTA head/neck as velocities are slowly increasing from 2022 and follow up after imaging She would like to stay in [place] if possible for interventions, she will touch base with Dr. Rojas's office to see about carotid interventions and will notify the office. SIGNATURE: Mary Kay Delgado DO PATIENT NAME: Eri Pritchard DATE: May 08, 2024 TIME: 8:49 AM documented in this encounterReg[facility]01-[facility]-2025 Telephone encounter Note * Telephone Encounter - Kierra Santiago MD - 05/04/2024 1:59 AM EST Noted. Kierra Santiago MD [facility]01-03-2025 Miscellaneous Notes* Telephone Encounter - Kierra Santiago MD - 05/04/2024 1:59 AM EST Noted. Kierra Santiago MD * Telephone Encounter - Zoey Lorenz LPN - 04/30/2024 2:15 PM EST Le with [facility] calls to report she has to discharge pt from because of insurance change. Pt will be re-admitted to 05/02/24 under an different insurance. Zoey Lorenz LPN documented in this encounterRegency Hospital [facility]01-03-2025 Telephone encounter Note * Telephone Encounter - Kierra Santiago MD - 05/04/2024 1:52 AM EST The following approved medication requests have been transmitted electronically. Requested Prescriptions Signed Prescriptions Disp Refills warfarin (COUMADIN) 2 mg tablet 90 tablet 3 Sig: Take 2 tablets by mouth once daily. Authorizing Provider: KIERRA SANTIAGO metoprolol succinate ER (TOPROL XL) 50 mg 24 hr tablet 45 tablet 3 Sig: Take 0.5 tablets by mouth once daily. Authorizing Provider: KIERRA SANTIAGO gabapentin (NEURONTIN) 100 mg capsule 180 capsule 1 Sig: Take 1 capsule by mouth two times a day for 180 days. Authorizing Provider: KIERRA SANTIAGO clopidogrel (PLAVIX) 75 mg tablet 90 tablet 3 Sig: Take 1 tablet by mouth once daily. Authorizing Provider: KIERRA SANTIAGO MD [facility]01-03-2025 Miscellaneous Notes* Telephone Encounter - Kierra Santiago MD - 05/04/2024 1:52 AM EST The following approved medication requests have been transmitted electronically. Requested Prescriptions Signed Prescriptions Disp Refills warfarin (COUMADIN) 2 mg tablet 90 tablet 3 Sig: Take 2 tablets by mouth once daily. Authorizing Provider: KIERRA SANTIAGO metoprolol succinate ER (TOPROL XL) 50 mg 24 hr tablet 45 tablet 3 Sig: Take 0.5 tablets by mouth once daily. Authorizing Provider: KIERRA SANTIAGO gabapentin (NEURONTIN) 100 mg capsule 180 capsule 1 Sig: Take 1 capsule by mouth two times a day for 180 days. Authorizing Provider: KIERRA SANTIAGO clopidogrel (PLAVIX) 75 mg tablet 90 tablet 3 Sig: Take 1 tablet by mouth once daily. Authorizing Provider: KIERRA SANTIAGO MD * Telephone Encounter - Ngozi Rios LPN - 05/03/2024 4:09 PM EST Prescription Refill Information The patient has been identified by name and date of : Yes Caregiver verified no other encounters exist for this prescription request: Yes Caregiver confirmed with patient/requestor that no other refills are due, in the near future, with this provider at this time: Yes The last office visit in the department: 04/17/24 Does the patient have a future office visit with this provider/department: Yes Requested Prescriptions Pending Prescriptions Disp Refills warfarin (COUMADIN) 2 mg tablet 90 tablet 3 Sig: Take 2 tablets by mouth once daily. metoprolol succinate ER (TOPROL XL) 50 mg 24 hr tablet 45 tablet 3 Sig: Take 0.5 tablets by mouth once daily. gabapentin (NEURONTIN) 100 mg capsule 180 capsule 3 Sig: Take 1 capsule by mouth two times a day for 90 days. clopidogrel (PLAVIX) 75 mg tablet 90 tablet 3 Sig: Take 1 tablet by mouth once daily. Ngozi Rios LPN May 03, 2024 4:12 PM * Telephone Encounter - Yarelis Jenkins - 05/03/2024 4:02 PM EST Prescription Refill Information The patient has been identified by name and date of : Yes Caregiver verified no other encounters exist for this prescription request: Yes Caregiver confirmed with patient/requestor that no other refills are due, in the near future, with this provider at this time: Yes The last office visit in the department: 04/17/24 Does the patient have a future office visit with this provider/department: Yes Requested Prescriptions Pending Prescriptions Disp Refills warfarin (COUMADIN) 2 mg tablet 90 tablet 3 Sig: Take 2 tablets by mouth once daily. metoprolol succinate ER (TOPROL XL) 50 mg 24 hr tablet 45 tablet 3 Sig: Take 0.5 tablets by mouth once daily. gabapentin (NEURONTIN) 100 mg capsule 180 capsule 3 Sig: Take 1 capsule by mouth two times a day for 90 days. clopidogrel (PLAVIX) 75 mg tablet 90 tablet 3 Sig: Take 1 tablet by mouth once daily. Please note: most of these were previously Med Update. Patient does need all of these. Yarelis Petty May 03, 2024 4:05 PM documented in this encounterRegency [facility]01-02-2025 Telephone encounter Note * Telephone Encounter - Ngozi Rios LPN - 05/03/2024 4:09 PM EST Prescription Refill Information The patient has been identified by name and date of : Yes Caregiver verified no other encounters exist for this prescription request: Yes Caregiver confirmed with patient/requestor that no other refills are due, in the near future, with this provider at this time: Yes The last office visit in the department: 04/17/24 Does the patient have a future office visit with this provider/department: Yes Requested Prescriptions Pending Prescriptions Disp Refills warfarin (COUMADIN) 2 mg tablet 90 tablet 3 Sig: Take 2 tablets by mouth once daily. metoprolol succinate ER (TOPROL XL) 50 mg 24 hr tablet 45 tablet 3 Sig: Take 0.5 tablets by mouth once daily. gabapentin (NEURONTIN) 100 mg capsule 180 capsule 3 Sig: Take 1 capsule by mouth two times a day for 90 days. clopidogrel (PLAVIX) 75 mg tablet 90 tablet 3 Sig: Take 1 tablet by mouth once daily. Ngozi Rios LPN May 03, 2024 4:12 PM [facility]01-02-2025 Telephone encounter Note* Telephone Encounter - [place] Yarelis Petty - 05/03/2024 4:02 PM EST Prescription Refill Information The patient has been identified by name and date of : Yes Caregiver verified no other encounters exist for this prescription request: Yes Caregiver confirmed with patient/requestor that no other refills are due, in the near future, with this provider at this time: Yes The last office visit in the department: 04/17/24 Does the patient have a future office visit with this provider/department: Yes Requested Prescriptions Pending Prescriptions Disp Refills warfarin (COUMADIN) 2 mg tablet 90 tablet 3 Sig: Take 2 tablets by mouth once daily. metoprolol succinate ER (TOPROL XL) 50 mg 24 hr tablet 45 tablet 3 Sig: Take 0.5 tablets by mouth once daily. gabapentin (NEURONTIN) 100 mg capsule 180 capsule 3 Sig: Take 1 capsule by mouth two times a day for 90 days. clopidogrel (PLAVIX) 75 mg tablet 90 tablet 3 Sig: Take 1 tablet by mouth once daily. Please note: most of these were previously Med Update. Patient does need all of these. Yarelis [facility] May 03, 2024 4:05 PM [facility]01-02-2025 Telephone encounter Note* Telephone Encounter - Bekah Vivas LPN - 05/03/2024 3:33 PM EST Qasim [facility] nurse was notified of providers message and verbalized understanding. [facility]01-02-2025 Miscellaneous Notes* Telephone Encounter - Bekah Vivas LPN - 05/03/2024 3:33 PM EST Qasim [facility] nurse was notified of providers message and verbalized understanding. * Telephone Encounter - Anastasiia Colón APRN.CNS - 05/03/2024 3:20 PM EST Monitor BP and let us know if remains elevated above 150 systolic * Telephone Encounter - Susan Rea RN - 05/03/2024 3:11 PM EST Qasim [facility] nurse calling in as pt changed insurance companies as of 05/02/24 so he had to close her case on the and reopen it today under the new insurance. Calling in with [facility] of seeingpt 1 time per week for 3 weeks. Also reporting an asymptomatic BP of 176/80. States pt is taking her BP meds correctly. He states that pt's granddaughter is living with her and has a 6 y/o. The 6 y/owas running around yelling and Qasim feels pt's BP is up from anxiety and stress from the little girl's behavior and active environment. No need to return call unless orders. [facility] Telephone encounter Note * Telephone Encounter - Anastasiia Colón APRN.CNS - 05/03/2024 3:20 PM EST Monitor BP and let us know if remains elevated above 150 systolic [facility]01-02-2025 Telephone encounter Note* Telephone Encounter - Suasn Rea RN - 05/03/2024 3:11 PM EST Qasim [facility] nurse calling in as pt changed insurance companies as of 05/02/24 so he had to close her case on the and reopen it today under the new insurance. Calling in with [employer] [facility] [employer] of seeingpt 1 time per week for 3 weeks. Also reporting an asymptomatic BP of 176/80. States pt is taking her BP meds correctly. He states that pt's granddaughter is living with her and has a 6 y/o. The 6 y/owas running around yelling and Qasim feels pt's BP is up from anxiety and stress from the little girl's behavior and active environment. No need to return call unless orders. [facility]01-02-2025 Telephone encounter Note* Telephone Encounter - Krys Townsend RN - 05/03/2024 8:08 AM EST Called and left a detailed voicemail notifying Qasim from [facility] of providers message. Clinic phone number was left in case he had any questions. Krys Townsend RN [facility]01-02-2025 Miscellaneous Notes* Telephone Encounter - Krys Townsend RN - 05/03/2024 8:08 AM EST Called and left a detailed voicemail notifying Qasim from [facility] of providers message. Clinic phone number was left in case he had any questions. Krys Townsend RN * Telephone Encounter - Kierra Santiago MD - 05/01/2024 5:11 PM EST Continue present dosing Recheck in 1 week Continue to monitor BP on present meds. Make sure patient staying hydrated. May drink 2 cups of water or other noncaffeinated fluid under 5 minute to get SBP up if gets low again under 90. * Telephone Encounter - Prerna Greenfield RN - 05/01/2024 9:22 AM EST Qasim from [facility] calls with updated INR and BP. Qasim reports that BP today is 86/46. Patient is asympotomatic. Qasim thinks BP is lower because patient just woke up. Patient is keeping a BP log and BP's are much higher. Qasim encouraged patient to drink fluids. Qasim had to discharge patient from nursing services today due to patient changing insurances on 05/02/2024. Qasim will reopen services this week with patient's new insurance. Please call Qasim back with Coumadin and INR instructions. Last INR: INR (POCT) 2.5 (ext) 05/01/2024 Current dose of coumadin is: 1 mg TuFr; 2 mg all other days. Last date of dose change: 04/23/2024. Previous INR (date and result): 04/23/2024 4.1 Additional Clinical Information or narrative: Patient has had not changes in diet or medications. Patient still has a bruise to her left hip where she had previous roll out of bed. Patient reports that bruising is getting smaller documented in [facility]24 Telephone encounter Note * Telephone Encounter - Kierra Santiago MD - 05/01/2024 5:11 PM EST Continue present dosing Recheck in 1 week Continue to monitor BP on present meds. Make sure patient staying hydrated. May drink 2 cups of water or other noncaffeinated fluid under 5 minute to get SBP up if gets low again under 90. [facility]12-31-2024 Telephone encounter Note* Telephone Encounter - Prerna Greenfield RN - 05/01/2024 9:22 AM EST Qasim from [facility] calls with updated INR and BP. Qasim reports that BP today is 86/46. Patient is asympotomatic. Qasim thinks BP is lower because patient just woke up. Patient is keeping a BP log and BP's are much higher. Qasim encouraged patient to drink fluids. Qasim had to discharge patient from nursing services today due to patient changing insurances on 05/02/2024. Qasim will reopen services this week with patient's new insurance. Please call Qasim back with Coumadin and INR instructions. Last INR: INR (POCT) 2.5 (ext) 05/01/2024 Current dose of coumadin is: 1 mg TuFr; 2 mg all other days. Last date of dose change: 04/23/2024. Previous INR (date and result): 04/23/2024 4.1 Additional Clinical Information or narrative: Patient has had not changes in diet or medications. Patient still has a bruise to her left hip where she had previous roll out of bed. Patient reports that bruising is getting smaller [facility]12-31-2024 Telephone encounter Note* Telephone Encounter - Bekah Vivas LPN - 05/01/2024 8:54 AM EST Form faxed back to [facility] Home Health [facility]12-31-2024 Miscellaneous Notes* Telephone Encounter - Bekah Vivas LPN - 05/01/2024 8:54 AM EST Form faxed back to [facility] Home Health * Telephone Encounter - Kierra Santiago MD - 04/30/2024 11:56 PM EST Signed * Telephone Encounter - Bekah Vivas LPN - 04/30/2024 4:06 PM EST Forms at nurse's pod for signature * Telephone Encounter - Kierra Santiago MD - 04/29/2024 6:48 PM EST Verify form faxed back * Telephone Encounter - Olga Lidia Eubanks MA - 04/27/2024 10:59 AM EST Type of form: Home Health Care Orders Form received via fax When form is completed, Fax form to [phone] Form has been forwarded to Physician Desk: Dr. Pamela Eubanks MA documented in this encounterReg[facility]12-30-2024 Telephone encounter Note * Telephone Encounter - Kierra Santiago MD - 04/30/2024 11:56 PM EST Signed [facility]12-30-2024 Telephone encounter Note* Telephone Encounter - Bekah Vivas LPN - 04/30/2024 4:06 PM EST Forms at nurse's pod for signature [facility]12-30-2024 Telephone encounter Note* Telephone Encounter - Zoey Lorenz LPN - 04/30/2024 2:15 PM EST Le with [facility] calls to report she has to discharge pt from because of insurance change. Pt will be re-admitted to 05/02/24 under an different insurance. Zoey Lorenz LPN [facility]12-29-2024 Telephone encounter Note* Telephone Encounter - Kierra Santiago MD - 04/29/2024 6:48 PM EST Verify form faxed back [facility]12-27-2024 Telephone encounter Note* Telephone Encounter - Olga Lidia Eubanks MA - 04/27/2024 10:59 AM EST Type of form: Home Health Care Orders Form received via fax When form is completed, Fax form to [phone] Form has been forwarded to Physician Desk: Dr. Pamela Eubanks MA [facility]12-24-2024 Telephone encounter Note* Telephone Encounter - Noemi Cullen RN - 04/24/2024 8:46 AM EST Contacted patient and reviewed provider's instructions below. Patient agreeable to take 2 mg daily,except 1 mg Tuesdays and Fridays. Patient states she will cut her 2 mg pills in half to make 1 mg. Patient repeated instructions back to this nurse successfully. Patient aware to get INR in one week. Pt has standing INR order. Noemi Cullen RN [facility]12-24-2024 Miscellaneous Notes* Telephone Encounter - Noemi Cullen RN - 04/24/2024 8:46 AM EST Contacted patient and reviewed provider's instructions below. Patient agreeable to take 2 mg daily,except 1 mg Tuesdays and Fridays. Patient states she will cut her 2 mg pills in half to make 1 mg. Patient repeated instructions back to this nurse successfully. Patient aware to get INR in one week. Pt has standing INR order. Noemi Cullen RN * Telephone Encounter - Kierra Santiago MD - 04/23/2024 7:58 PM EST INR 4.1 Verify patient taking 2 mg daily (and did not accidentally take the wrong dose 5mg or take extra asdid last week). Also verify eating well--getting some foods with Vitamin K about the same amount, on a weekly basis. If so, then need to lower dose since INR higher again from 3 to 4 range. Would give 1 mg pills again so would take 2 mg daily except 1 mg Tuesdays and Fridays. If cannot get 1 mg pills, okay to split 2 mg pills if not too small. If not able to do either of the above, skip dose on Tuesdays and 2 mg the other 6 days of the week. INR in 1 week. * Telephone Encounter - Romina Sawant LPN - 04/23/2024 5:47 PM EST Forwarded to Provider to review. Romina Sawant LPN * Telephone Encounter - Emily Bustos LPN - 04/23/2024 11:26 AM EST Elissa with [facility] called and they saw pt today but did not do an INR. Pt has apt with Cardiology at the [facility] and Elissa will call and have pt go early and get INR done at the [facility] and it will then come to Dr. Santiago to review and advise. Watch for results. Emily Bustos LPN documented in this encounterReg[facility]12-23-2024 Telephone encounter Note * Telephone Encounter - Kierra Santiago MD - 04/23/2024 7:58 PM EST INR 4.1 Verify patient taking 2 mg daily (and did not accidentally take the wrong dose 5mg or take extra asdid last week). Also verify eating well--getting some foods with Vitamin K about the same amount, on a weekly basis. If so, then need to lower dose since INR higher again from 3 to 4 range. Would give 1 mg pills again so would take 2 mg daily except 1 mg Tuesdays and Fridays. If cannot get 1 mg pills, okay to split 2 mg pills if not too small. If not able to do either of the above, skip dose on Tuesdays and 2 mg the other 6 days of the week. INR in 1 week. [facility]12-23-2024 Telephone encounter Note* Telephone Encounter - Romina Sawant LPN - 04/23/2024 5:47 PM EST Forwarded to Provider to review. Romina Sawant LPN [facility]12-23[facility] History of Present illness Narrative* Terrence Jane MD - 04/23/2024 2:56 PM EST Images from the original note were not included. Terrence Jane MD Interventional Cardiology [address] [place] [address] [phone] Chief Complaint Patient presents with: New: was at admitted at [facility]- dx CHF and a-fib HISTORY OF PRESENT ILLNESS: Ms. Pritchard is a 83 year old female seen in my office for assessment and management of her cardiac condition patient had history of atrial fibrillation 2 years ago persistent with no prior history of cardioversions treated with anticoagulation to reduce risk of stroke and medical therapy no coronary artery disease stent or bypass surgery but significant diabetes with peripheral vascular disease required vascular surgery with bypass in her left leg also prior history of TIA with carotid endarterectomy Recently was admitted to the hospital was still with congestive heart failure episode that was 2 months ago she was treated with medical treatment and improved dramatically Patient denied chest pain or shortness of breath no signs or symptoms of congestive heart failure with mild leg lymphedema Aortic stenosis Cardiac Risk Factors age (male over 45, female over 55), hyperlipidemia, hypertension, family history of CAD PAST MEDICAL HISTORY Diagnosis Date Atrial fibrillation (HCC) Diabetes mellitus (HCC) Factor V deficiency (HCC) GERD (gastroesophageal reflux disease) TIA (transient ischemic attack) 2001 PAST SURGICAL HISTORY Procedure Laterality Date CAROTID ENDARTERECTOMY Right COLON SURGERY HX HYSTERECTOMY HX REMV CATARACT EXTRACAP,INSERT LENS bilateral 2016 FAMILY HISTORY Problem Relation Age of Onset Clotting Disorder Mother Stroke Father Liver Disease Sister cirrhosis Heart Attack Brother CHF Glaucoma No Family History Macular Degen No Family History Social History Tobacco Use Smoking status: Never Vaping Use Vaping status: Never Used Substance Use Topics Alcohol use: Yes Comment: occ Drug use: Never ALLERGIES Allergen Reactions Accupril [Quinapril] Unknown Calan [Verapamil] Unknown Cymbalta [Duloxetin* Intolerance dizziness Lotensin [Benazepri* Unknown Sulfa (Sulfonamide * Unknown Medications: Current Outpatient Medications Medication Sig Dispense Refill potassium chloride ER (KLOR-CON) 20 mEq tablet TWICE DAILY WITH MEALS tiZANidine (ZANAFLEX) 2 mg tablet TAKE 2 TABLETS BY MOUTH EVERY 8 HOURS NEEDED FOR MUSCLE SPASM FOR 30 DAYS oxyCODONE IR (ROXICODONE) 5 mg immediate release tablet TAKE 2 TABLETS BY MOUTH EVERY 4 HOURS NEEDED FOR PAIN SCORE (4-10) FOR 7 DAYS metoprolol succinate ER (TOPROL XL) 50 mg 24 hr tablet Take 0.5 tablets by mouth once daily. 45 tablet 3 magnesium chloride 64 mg magnesium tab Take 2 tablets by mouth once daily. [address] (PROTONIX) 40 mg tablet Take 1 tablet by mouth every 12 hours. 180 tablet 1 warfarin (COUMADIN) 2 mg tablet Take 2 tablets by mouth once daily. 90 tablet 3 clopidogrel (PLAVIX) 75 mg tablet Take 1 tablet by mouth once daily. sertraline (ZOLOFT) 25 mg tablet Take 1 tablet by mouth once daily. 30 tablet 2 furosemide (LASIX) 40 mg tablet Take 1 tablet by mouth once daily. acetaminophen (TYLENOL) 500 mg tablet 1,000 mg. gabapentin (NEURONTIN) 100 mg capsule TWICE DAILY WITH MEALS docusate sodium (STOOL SOFTENER ORAL) Take by mouth. glimepiride (AMARYL) 2 mg tablet Take 1 tablet by mouth daily with breakfast. Check blood sugars daily, if remaining above 200 consistently in 2 to 4 weeks will increase the dose 90 tablet 3 Miscellaneous Medical Supply Take 1 Each by mouth two times a day. [employer] [place] 3+CoQ10 --30 mg of CoQ10 oxybutynin ER (DITROPAN XL) 10 mg 24 hr tablet Take 1 tablet by mouth once daily. 90 tablet 3 simvastatin (ZOCOR) 80 mg tablet Take 1 tablet by mouth daily at bedtime. 90 tablet 3 fluticasone (FLONASE) 50 mcg/actuation nasal spray Use 2 Sprays in each nostril once daily. 1 Each 11 ferrous sulfate 325 mg (65 mg iron) tablet Take 325 mg by mouth. No current facility-administered medications for this visit. Review of Systems Constitutional: Negative for chills, diaphoresis, fever, malaise/fatigue and weight loss. HENT: Negative for congestion, ear discharge, ear pain, hearing loss, nosebleeds, sinus pain, sore throat and tinnitus. Eyes: Negative for blurred vision, double vision, photophobia, pain, discharge and redness. Respiratory: Negative for cough, hemoptysis, sputum production, shortness of breath, wheezing and stridor. Cardiovascular: Negative for chest pain, palpitations, orthopnea, claudication, leg swelling and PND. Gastrointestinal: Negative for abdominal pain, blood in stool, constipation, diarrhea, heartburn, melena, nausea and vomiting. Genitourinary: Negative for dysuria, flank pain, frequency, hematuria and urgency. Musculoskeletal: Negative for back pain, falls, joint pain, myalgias and neck pain. Skin: Negative for itching and rash. Neurological: Negative for dizziness, tingling, tremors, sensory change, speech change, focal weakness, seizures, loss of consciousness, weakness and headaches. Endo/Heme/Allergies: Negative for environmental allergies and polydipsia. Does not bruise/bleed easily. Psychiatric/Behavioral: Negative for depression, hallucinations, memory loss, substance abuse and suicidal ideas. The patient is not nervous/anxious and does not have insomnia. Physical Examination: Vitals:BP 178/56 Pulse 69 Resp 12 Ht 5' 2.5 (1.59m) Wt 143 lb (64.9kg) SpO2 100% BMI 25.72 kg/(m^2). BP w/Orthostatic Vitals Date and Time Orthostatic BP Orthostatic Pulse BP Pulse BP Position BP Site BP Cuff Size 12/23/24 1434 -- -- 178/56 69 Sitting Right Arm Regular Adult Peak Flow Date and Time PF Resp 04/23/241433 -- 12 Last 2 Encounter Wt Readings: Date: Wt: 04/23/2024 64.9 kg (143 lb) 02/23/2024 62.9 kg (138 lb 10.7 oz) Physical Exam Constitutional: General: She is not in acute distress. Appearance: She is not diaphoretic. HENT: Head: Normocephalic and atraumatic. Right Ear: External ear normal. Left Ear: External ear normal. Nose: Nose normal. Mouth/Throat: Pharynx: Oropharynx is clear. Eyes: General: Right eye: No discharge. Left eye: No discharge. Conjunctiva/sclera: Conjunctivae normal. Pupils: Pupils are equal, round, and reactive to light. Cardiovascular: Rate and Rhythm: Normal rate and regular rhythm. Heart sounds: Normal heart sounds, S1 normal and S2 normal. No murmur heard. No friction rub. No gallop. No S3 or S4 sounds. Pulmonary: Effort: Pulmonary effort is normal. No respiratory distress. Breath sounds: Normal breath sounds. No wheezing or rales. Chest: Chest wall: No tenderness. Abdominal: General: Abdomen is flat. Musculoskeletal: General: Normal range of motion. Cervical back: Normal range of motion and neck supple. Skin: General: Skin is warm and dry. Neurological: Mental Status: She is alert and oriented to person, place, and time. Psychiatric: Mood and Affect: Mood normal. Thought Content: Thought content normal. Pertinent Labs: CBC: Hemoglobin (g/dL) Date Value 02/23/2024 13.5 Hematocrit (%) Date Value 02/23/2024 42.4 WBC (k/uL) Date Value 02/23/2024 6.96 Platelet Count (k/uL) Date Value 02/23/2024 237 BMP: Glucose (mg/dL) Date Value 04/09/2024 149 Potassium (mmol/L) Date Value 04/09/2024 4.4 Sodium (mmol/L) Date Value 04/09/2024 137 Chloride (mmol/L) Date Value 04/09/2024 103 CO2 (mmol/L) Date Value 04/09/2024 18 Creatinine (mg/dL) Date Value 04/09/2024 0.82 BUN (mg/dL) Date Value 04/09/2024 27 Anion Gap (mmol/L) Date Value 04/09/2024 16 Calcium, Total (mg/dL) Date Value 04/09/2024 10.3 INR: Recent Labs 04/23/24 1416 INR 4.1* Lipid Profile: Cholesterol, Total Date Value Ref Range Status 12/27/2023 118 <200 mg/dL Final Comment: <200 mg/dL, Desirable 200-239 mg/dL, Borderline high >239 mg/dL, High HDL Cholesterol Date Value Ref Range Status 12/27/2023 22 (L) >39 mg/dL Final Comment: 40-59 mg/dL, Acceptable >59 mg/dL, High: Negative risk factor for coronary heart disease <40 mg/dL, Low: Positive risk factor for coronary heart disease LDL Cholesterol Date Value Ref Range Status 12/27/2023 33 <100 mg/dL Final Comment: <100 mg/dL, Optimal 100-129 mg/dL, Near optimal/above optimal 130-159 mg/dL, Borderline high 160-189 mg/dL, High >189 mg/dL, Very high Secondary prevention optimal LDL Cholesterol levels are recommended to be < 70 mg/dL Triglyceride Date Value Ref Range Status 12/27/2023 315 (H) <150 mg/dL Final Comment: <150 mg/dL, Normal 150-199 mg/dL, Borderline high 200-499 mg/dL, High >499 mg/dL, Very high Hemoglobin A1C: No results found for: HGBA1C TSH: No results found for: TSHREFL Prior Cardiac Testing None Assessment and Plan: 83 years old female patient with persistent atrial fibrillation with recent episode of congestive heart failure and aortic stenosis ASSESSMENT/PLAN: 1. Aortic valve disorder - ICD9: 424.1, ICD10: I35.9 (primary diagnosis) Examination consistent with at least moderate aortic stenosis because of her echo to assess valve - ECHO - PERFLUTREN LIPID MICROSPHERES 1.1 MG/ML INJECTION IN NS 10 ML - SODIUM CHLORIDE 0.9 % (FLUSH) INJECTION SYRINGE 2. Pure hypercholesterolemia - ICD9: 272.0, ICD10: E78.00 On statin 3. Primary hypertension - ICD9: 401.9, ICD10: I10 - Controlled - Continue current medications - Recommend home blood pressure monitoring, to bring results to next visit - Encouraged sodium restriction, DASH or Mediterranean diet - Recommend regular aerobic exercise 4. Heart murmur - ICD9: 785.2, ICD10: R01.1 Heart murmur likely aortic stenosis echo to assess LV function and severity of her aortic stenosis Terrence Jane MD Follow up plannin weeks Electronically signed by Terrence Jane MD on April 23, 2024, 2:56 PM The above note was partially created using a dictation recognition software. A reasonable attempt has been made to correct any errors. documented in this encounterReg[facility]12-23-2024 Telephone encounter Note * Telephone Encounter - Emily Bustos LPN - 04/23/2024 11:26 AM EST Elissa with [facility] called and they saw pt today but did not do an INR. Pt has apt with Cardiology at the [facility] and Elissa will call and have pt go early and get INR done at the [facility] and it will then come to Dr. Santiago to review and advise. Watch for results. Emily Bustos LPN [facility]12-20-2024 Telephone encounter Note* Telephone Encounter - Daisy Howard LPN - 04/20/2024 9:13 AM EST [facility] and patient made aware. This encounter has been faxed to [facility]. [facility]12-20-2024 Miscellaneous Notes* Telephone Encounter - Daisy Howard LPN - 04/20/2024 9:13 AM EST [facility] and patient made aware. This encounter has been faxed to [facility]. * Telephone Encounter - Kierra Santiago MD - 04/19/2024 6:00 PM EST Noted patient already started taking 2 mg dose yesterday. Okay 2 mg daily dose for now Recheck next Tuesday. * Telephone Encounter - Aleisha Shaffer RN - 04/18/2024 2:32 PM EST Last INR: INR (POCT) 3.3 EXT 04/18/2024 Current dose of coumadin is: Coumadin 2 mg. [facility] reports patient started 2 mg dose this morning. Anastasiia Barakat's OV notes patient was to hold until INR drawn today. Last date of dose change: 04/16/2024. Previous INR (date and result): 5.1 EXT on 04/16/2024 Additional Clinical Information or narrative: yes: No dietary changes, antibiotics, unusual bleeding or bruising. [facility] requests that Qasim LEMON CM be contacted with further orders at [phone]. documented in this encounterReg[facility]12-[facility]-2024 Telephone encounter Note * Telephone Encounter - Kierra Santiago MD - 04/19/2024 6:00 PM EST Noted patient already started taking 2 mg dose yesterday. Okay 2 mg daily dose for now Recheck next Tuesday. [facility]12-18-2024 Telephone encounter Note* Telephone Encounter - Aleisha Shaffer RN - 04/18/2024 2:32 PM EST Last INR: INR (POCT) 3.3 EXT 04/18/2024 Current dose of coumadin is: Coumadin 2 mg. [facility] reports patient started 2 mg dose this morning. Anastasiia Barakat's OV notes patient was to hold until INR drawn today. Last date of dose change: 04/16/2024. Previous INR (date and result): 5.1 EXT on 04/16/2024 Additional Clinical Information or narrative: yes: No dietary changes, antibiotics, unusual bleeding or bruising. [facility] requests that Qasim LEMON CM be contacted with further orders at [phone]. [facility]12-17-2024 Instructions* Patient Instructions* Anastasiia Colón APRN.CNS - 04/17/2024 12:45 PM EST Home health care will check your INR on Tuesday . Hold your Coumadin today. Please keep your appointment with Dr. Blanca to check your foot amputation Please make an appointment with Dr. Espinoza regarding your bypass- post op follow up Please schesule an appointment with Dr Giron regarding your ulcer.- hospital follow up Continue on with pantoprazole twice daily until you see him Please [facility] an [facility] documented in [facility] encounter[facility] History of Present illness Narrative* Anastasiia Colón APRN.CNS - 04/17/2024 11:46 AM EST SUBJECTIVE: RSV Vaccine(1 - 1-dose 75+ series) Never done Diabetic Foot Exam due on 08/10/2023 HPI Eri Pritchard is a 83 year old female. PMH significant for ACTIVE PROBLEM LIST Hyperlipidemia Primary Hypertension Carotid Atherosclerosis Subclinical Hypothyroidism Fatty Liver Heart Murmur Type 2 Diabetes Mellitus With Diabetic Polyneuropathy, Without Long-Term Current Use of Insulin (Hcc) Factor V Deficiency (Hcc) Bilateral Carotid Artery Stenosis Elevated Hdl Factor 5 Leiden Mutation, Heterozygous (Hcc) Peripheral Vascular Disease, Unspecified (Hcc) She presents for hospital discharge follow-up visit. She has [facility]. She was admitted to [facility] March 19 through April 05. She presented to thespital with history of osteomyelitis and wet gangrene of the right foot. She underwent revision of the right lower extremity with revascularization per Dr. Espinoza. She underwent hematoma evacuation. She had a compartment fasciotomy on March 12, 2024. She underwent a right transmetatarsal amputation per Dr. Blanca.Consult was made to Dr. Giron for anemia and Hemoccult positive stool. She was noted to have oozing gastric ulcer and nonbleeding duodenal ulcers. She was started on pantoprazole twice daily. She was transferred to skilled rehab for debility. Discharged to home with [facility] home care. Today reports eating and drinking normally. No bowel or bladder complaints. She has [facility] health care coming out to her home. She has an appointment coming up with her artist mannequin coloring Dr. Blanca. She reports no upcoming appointment with vascular or with gastroenterology. She has noted no bleeding since she has been discharged home. She had a supratherapeutic INR and is holding Coumadin currently. Plans to hold this until tomorrow. INR tomorrow to be completed by home health care he will callwith results. She notes foot is healing well assisted vascular bypass incision sites. No fever. Review of Systems Constitutional: Negative. Musculoskeletal: Positive for arthralgias. Skin: Positive for wound. Objective There were no vitals taken for this visit. Physical Exam Vitals and nursing note reviewed. Constitutional: Appearance: Normal appearance. HENT: Head: Normocephalic and atraumatic. Eyes: Conjunctiva/sclera: Conjunctivae normal. Cardiovascular: Rate and Rhythm: Normal rate. Abdominal: General: Bowel sounds are normal. Palpations: Abdomen is soft. Skin: General: Skin is warm and dry. Comments: Right inner thigh areas with black eschar, incision from groin to ankle medial aspect healing well, mild RLE swelling. post op shoe and DSD R foot Neurological: General: No focal deficit present. Mental Status: She is alert and oriented to person, place, and time. Dry sterile dressing and postop shoe to right foot, dry sterile dressing to ALLERGIES Allergen Reactions Accupril [Quinapril] Unknown Calan [Verapamil] Unknown Cymbalta [Duloxetin* Intolerance dizziness Lotensin [Benazepri* Unknown Sulfa (Sulfonamide * Unknown Medications pantoprazole DR (PROTONIX) 40 mg tablet Take 1 tablet by mouth every 12 hours. potassium chloride ER (KLOR-CON) 20 mEq tablet TWICE DAILY WITH MEALS tiZANidine (ZANAFLEX) 2 mg tablet TAKE 2 TABLETS BY MOUTH EVERY 8 HOURS NEEDED FOR MUSCLE SPASM FOR 30 DAYS oxyCODONE IR (ROXICODONE) 5 mg immediate release tablet TAKE 2 TABLETS BY MOUTH EVERY 4 HOURS NEEDED FOR PAIN SCORE (4-10) FOR 7 DAYS magnesium chloride 64 mg magnesium tab Take by mouth. warfarin (COUMADIN) 2 mg tablet Take 2 tablets by mouth once daily. clopidogrel (PLAVIX) 75 mg tablet Take 1 tablet by mouth once daily. sertraline (ZOLOFT) 25 mg tablet Take 1 tablet by mouth once daily. furosemide (LASIX) 40 mg tablet Take 1 tablet by mouth once daily. acetaminophen (TYLENOL) 500 mg tablet 1,000 mg. gabapentin (NEURONTIN) 100 mg capsule TWICE DAILY WITH MEALS metoprolol succinate ER (TOPROL XL) 50 mg 24 hr tablet Take 1 tablet by mouth once daily. (Patient taking differently: Take 25 mg by mouth once daily.) glimepiride (AMARYL) 2 mg tablet Take 1 tablet by mouth daily with breakfast. Check blood sugars daily, if remaining above 200 consistently in 2 to 4 weeks will increase the dose oxybutynin ER (DITROPAN XL) 10 mg 24 hr tablet Take 1 tablet by mouth once daily. simvastatin (ZOCOR) 80 mg tablet Take 1 tablet by mouth daily at bedtime. fluticasone (FLONASE) 50 mcg/actuation nasal spray Use 2 Sprays in each nostril once daily. senna-docusate (SENNA-S) 8.6-50 mg per tablet once daily. (Patient not taking: Reported on 04/17/2024) enoxaparin (LOVENOX) 80 mg/0.8 mL Q12H (Patient not taking: Reported on 04/17/2024) docusate sodium (STOOL SOFTENER ORAL) Take by mouth. traMADol (ULTRAM) 50 mg tablet EVERY 8 HOURS NEEDED as needed for PAIN 1-3 (Patient not taking: Reported on 04/17/2024) Ferrous Fumarate 325 mg (106 mg iron) tab Take by mouth. (Patient not taking: Reported on 04/17/2024) argin/glut/CaHMB/collag/mv-min (RONALDO, WITH COLLAGEN, ORAL) Take by mouth. (Patient not taking: Reported on 04/17/2024) losartan (COZAAR) 50 mg tablet Take 1 tablet by mouth once daily. (Patient not taking: Reported on 04/17/2024) spironolactone (ALDACTONE) 25 mg tablet Take 0.5 tablets by mouth once daily. (Patient not taking: Reported on 04/17/2024) Miscellaneous Medical Supply Take 1 Each by mouth two times a day. [employer] [place] 3+CoQ10 --30 mg of CoQ10 cholecalciferol (VITAMIN D-3) 5,000 unit tab Take 5,000 Units by mouth. Take 1-2 tablet daily (Patient not taking: Reported on 02/23/2024) omeprazole (PRILOSEC) 20 mg capsule Take 1 capsule by mouth daily before breakfast. 1/2 hr before meal. (Patient not taking: Reported on 04/17/2024) ferrous sulfate 325 mg (65 mg iron) tablet Take 325 mg by mouth. calcium carbonate (CALCIUM 600 ORAL) Take 1,200 mg by mouth. (Patient not taking: Reported on 02/23/2024) cinnamon bark (CINNAMON ORAL) Take 4,200 mg by mouth. (Patient not taking: Reported on 02/23/2024) sodium chloride (AYR SALINE) 0.65 % nasal spray Use 2 Sprays in the nose as needed. (Patient not taking: Reported on 04/17/2024) propylene glycoL (SYSTANE BALANCE) 0.6 % drop 1 Drop. (Patient not taking: Reported on 02/23/2024) PAST MEDICAL HISTORY Diagnosis Date Atrial fibrillation (HCC) Diabetes mellitus (HCC) Factor V deficiency (HCC) GERD (gastroesophageal reflux disease) TIA (transient ischemic attack) 2001 Social History Tobacco Use Smoking status: Never Vaping Use Vaping status: Never Used Substance Use Topics Alcohol use: Yes Comment: occ Drug use: Never ASSESSMENT/PLAN: 1. Critical limb ischemia of right lower extremity (HCC) - ICD9: 440.22, ICD10: I70.221 (primary diagnosis) s/p vascular bypass and transmetatarsal amputation right foot. 2. S/P transmetatarsal amputation of foot, right (HCC) - ICD9: V49.73, ICD10: Z89.431 Healing well. To follow up with artist mannequin coloring. 3. S/P femoral-popliteal bypass surgery - ICD9: V45.89, ICD10: Z95.828 Healing well To follow up with vascular surgeon 4. Acute gastric ulcer, unspecified whether gastric ulcer hemorrhage or perforation present - ICD9:531.30, ICD10: K25.3 This was clipped during her hospital admission - PANTOPRAZOLE 40 MG TABLET,DELAYED RELEASE 5. Duodenal ulcer - ICD9: 532.90, ICD10: K26.9 No signs of active bleeding on EGD - PANTOPRAZOLE 40 MG TABLET,DELAYED RELEASE Advised: Home health care will check your INR on Tuesday . Hold your Coumadin today. Please keep your appointment with Dr. Blanca to check your foot amputation Please make an appointment with Dr. Espinoza regarding your bypass- post op follow up Please schesule an appointment with Dr Giron regarding your ulcer.- hospital follow up Continue on with pantoprazole twice daily until you see him Please make an appointment a [facility] 3 mo follow up Anastasiia Colón APRN.CNS 6 mo follow up MD Anastasiia Wilson APRN.CERTIFIED JUVENILE PROBATION OFFICER Medical Decision Making: Problems: Moderate: Acute illness with systemic symptoms and 1+ chronic illnesses with change Data: Unique source(s) for external note(s) reviewed: 1 Unique test result(s) reviewed: 3+ Risk: Moderate: Drug management Medical Decision Making Level: 4 - Moderate documented in this encounterRegency Hospital [facility]12-16-2024 Telephone encounter Note * Telephone Encounter - Kierra Santiago MD - 04/16/2024 11:33 PM EST Agreeable with POC [facility]12-16-2024 Miscellaneous Notes* Telephone Encounter - Kierra Santiago MD - 04/16/2024 11:33 PM EST Agreeable with POC * Telephone Encounter - Noemi Cullen RN - 04/16/2024 2:41 PM EST Jaylan with [facility] calling with patient's Physical Therapy plan of care. PT will see patient 1x/week for 3 weeks for functional mobility training. No call back needed if provider agreeable with POC. Thank you. documented in this encounterRegency Hospital [facility]12-16-2024 Telephone encounter Note * Telephone Encounter - Noemi Cullen RN - 04/16/2024 2:41 PM EST Jaylan with [facility] calling with patient's Physical Therapy plan of care. PT will see patient 1x/week for 3 weeks for functional mobility training. No call back needed if provider agreeable with POC. Thank you. [facility]12-16-2024 Telephone encounter Note* Telephone Encounter - Aleisha Shaffer RN - 04/16/2024 10:55 AM EST Call placed to patient and Qasim with [facility]. Spoke to both with verbalized understanding. Aleisha Shaffer RN [facility]12-16-2024 Miscellaneous Notes* Telephone Encounter - Aleisha Shaffer RN - 04/16/2024 10:55 AM EST Call placed to patient and Qasim with [facility]. Spoke to both with verbalized understanding. Aleisha Shaffer RN * Telephone Encounter - Kierra Santiago MD - 04/16/2024 10:40 AM EST Hold today and tomorrow then get INR Tuesday as noted. Can discuss with Anastasiia tomorrow about prior coumadin dosing * Telephone Encounter - Aleisha Shaffer RN - 04/16/2024 9:52 AM EST Last INR: INR (POCT) 5.1 EXT 04/16/2024 Current dose of coumadin is: Coumadin 4 mg daily. Last date of dose change: 02/27/2024. Previous INR (date and result): 04/09/2024 1.7 Additional Clinical Information or narrative: yes: No missed doses or dietary changes. Qasim watson patient is holding Coumadin today and he will be out to see patient again on Tuesday if another INR is needed at that time. Patient also has follow up with Anastasiia tomorrow 04/17. Call back number is [phone]. Aleisha Shaffer RN documented in this encounterRegency Hospital [facility]12-16-2024 Telephone encounter Note * Telephone Encounter - Kierra Santiago MD - 04/16/2024 10:40 AM EST Hold today and tomorrow then get INR Tuesday as noted. Can discuss with Anastasiia tomorrow about prior coumadin dosing [facility]12-16-2024 Telephone encounter Note* Telephone Encounter - Aleisha Shaffer RN - 04/16/2024 9:52 AM EST Last INR: INR (POCT) 5.1 EXT 04/16/2024 Current dose of coumadin is: Coumadin 4 mg daily. Last date of dose change: 02/27/2024. Previous INR (date and result): 04/09/2024 1.7 Additional Clinical Information or narrative: yes: No missed doses or dietary changes. Qasim watson patient is holding Coumadin today and he will be out to see patient again on Tuesday if another INR is needed at that time. Patient also has follow up with Anastasiia tomorrow 04/17. Call back number is [phone]. Aleisha Shaffer RN [facility]12-13-2024 Telephone encounter Note* Telephone Encounter - Aleisha Shaffer RN - 04/13/2024 4:29 PM EST Call placed to Elli with [facility] and notified of below message with understanding. Aleisha Shaffer RN [facility]12-13-2024 Miscellaneous Notes* Telephone Encounter - Aleisha Shaffer RN - 04/13/2024 4:29 PM EST Call placed to Elli with [facility] and notified of below message with understanding. Aleisha Shaffer RN * Telephone Encounter - Anastasiia Colón APRN.CNS - 04/13/2024 12:39 PM EST [facility] * Telephone Encounter - Aleisha Shaffer RN - 04/13/2024 9:08 AM EST Elli with [facility] calls to request a delay in start of care for PT. Elli would like to move the visit to next week d/t patient having an appointment today. Elli requests a call back at [phone]. Aleisha Shaffer RN documented in this encounterRegency Hospital [facility]12-13-2024 Telephone encounter Note * Telephone Encounter - Anastasiia Colón APRN.CNS - 04/13/2024 12:39 PM EST [facility]12-13-2024 Telephone encounter Note* Telephone Encounter - Aleisha Shaffer RN - 04/13/2024 9:08 AM EST Elli with [facility] calls to request a delay in start of care for PT. Elli would like to move the visit to next week d/t patient having an appointment today. lEli requests a call back at [phone]. Aleisha Shaffer RN [facility]12-12-2024 Telephone encounter Note* Telephone Encounter - Bekah Vivas LPN - 04/12/2024 9:37 AM EST Attempted to contact Moisés nurse with [facility] but no answer. Left providers message on secure voicemail and ask to call office and ask to speak. [facility]12-12-2024 Miscellaneous Notes* Telephone Encounter - Bekah Vivas LPN - 04/12/2024 9:37 AM EST Attempted to contact Moisés nurse with [facility] but no answer. Left providers message on secure voicemail and ask to call office and ask to speak. * Telephone Encounter - Bekah Vivas LPN - 04/12/2024 9:30 AM EST Spoke with patient. Patient states that her memory is not good and doesn't remember dosing in Jan but thinks that prior to hospital admin she was taking 5 mg daily except for on Tue which was 2 mg. Patient given coumadin instructions and notified that Qasim will recheck INR on Tuesday. * Telephone Encounter - Kierra Santiago MD - 04/11/2024 6:40 PM EST Last dose on med list is 2 mg daily coumadin. Back in January, INR was okay on 4 mg daily after increase from taking 1mg Wed and 2 mg other days. Verify if dosing since last January not accurate (ie, was taking a different dose prior to this INR1.7 instead of 2mg daily) Have her take 4 mg daily and recheck INR next Tuesday * Telephone Encounter - Romina Sawant LPN - 04/11/2024 5:58 PM EST Message copied and given to Provider to address. Romina Sawant LPN * Telephone Encounter - Stacia Bruce LPN - 04/11/2024 9:26 AM EST Moisés nurse with [facility] calling, asking if PCP saw that INR on 04/09 was 1.7. Patient has been taking 5 mg daily since Tuesday because she knew she was low when she was discharged from the hospital. Moisés asking what dose PCP would like patient to take. She has 5mg tablets and 2mg tablets at home. Moisés is due to go back to the patients home on Tuesday and asking if PCP would like him to do a fingerstick. Asking that we call both him and the patient with instructions. Please advise. documented in this encounterRegency Hospital [facility]12-12-2024 Telephone encounter Note * Telephone Encounter - Bekah Vivas LPN - 04/12/2024 9:30 AM EST Spoke with patient. Patient states that her memory is not good and doesn't remember dosing in Jan but thinks that prior to hospital admin she was taking 5 mg daily except for on Tue which was 2 mg. Patient given coumadin instructions and notified that Qasim will recheck INR on Tuesday. [facility]12-11-2024 Telephone encounter Note* Telephone Encounter - Kierra Santiago MD - 04/11/2024 6:40 PM EST Last dose on med list is 2 mg daily coumadin. Back in January, INR was okay on 4 mg daily after increase from taking 1mg Wed and 2 mg other days. Verify if dosing since last January not accurate (ie, was taking a different dose prior to this INR1.7 instead of 2mg daily) Have her take 4 mg daily and recheck INR next Tuesday [facility]12-11-2024 Telephone encounter Note* Telephone Encounter - Romina Sawant LPN - 04/11/2024 5:58 PM EST Message copied and given to Provider to address. Romina Sawant LPN [facility]12-11-2024 Telephone encounter Note* Telephone Encounter - Stacia Bruce LPN - 04/11/2024 9:26 AM EST Moisés nurse with [facility] calling, asking if PCP saw that INR on 04/09 was 1.7. Patient has been taking 5 mg daily since Tuesday because she knew she was low when she was discharged from the hospital. Moisés asking what dose PCP would like patient to take. She has 5mg tablets and 2mg tablets at home. Moisés is due to go back to the patients home on Tuesday and asking if PCP would like him to do a fingerstick. Asking that we call both him and the patient with instructions. Please advise. [facility]12-09-2024 Telephone encounter Note* Telephone Encounter - Anastasiia Colón APRN.CERTIFIED JUVENILE PROBATION OFFICER - 04/09/2024 4:07 PM EST [facility]. Should take medications as ordered at discharge. [facility]12-09-2024 Miscellaneous Notes* Telephone Encounter - Anastasiia Colón APRN.CNS - 04/09/2024 4:07 PM EST [facility]. Should take medications as ordered at discharge. * Telephone Encounter - Susan Rea RN - 04/09/2024 3:39 PM EST Moisés nurse from [facility] calling as he saw pt today to initiate SN. Plan is he wants to see her 2x per week for 2 weeks then 1x per week for 2 weeks. Also updating provider that pt is not taking Magnesium at this time. Also notifying provider of a couple of drug interaction warnings. Warfarin/Sertraline, Oxybutynin/K+Chloride and warning on taking Warfarin and Plavix. Per med list in [facility], pt has two magnesiums listed. Moisés states pt states has not been taking it for a long time. Note under Warfarin that pt is not taking it. Moisés confirmed pt is still taking it and was getting an INR drawn today. Plavix not on pt's list but Moisés states pt had some vascular surgery done and he thinks the Plavix is going to be short term. (Med list updated to reflect) No need to call Moisés back unless a problem or any changes. documented in this encounterReg[facility]12-09-2024 Telephone encounter Note * Telephone Encounter - Susan Rea RN - 04/09/2024 3:39 PM EST Moisés nurse from [facility] calling as he saw pt today to initiate SN. Plan is he wants to see her 2x per week for 2 weeks then 1x per week for 2 weeks. Also updating provider that pt is not taking Magnesium at this time. Also notifying provider of a couple of drug interaction warnings. Warfarin/Sertraline, Oxybutynin/K+Chloride and warning on taking Warfarin and Plavix. Per med list in [facility], pt has two magnesiums listed. Moisés states pt states has not been taking it for a long time. Note under Warfarin that pt is not taking it. Moisés confirmed pt is still taking it and was getting an INR drawn today. Plavix not on pt's list but Moisés states pt had some vascular surgery done and he thinks the Plavix is going to be short term. (Med list updated to reflect) No need to call Moisés back unless a problem or any changes. [facility]12-06-2024 [facility]12[facility] History of Present illness Narrative* Bekah Vivas LPN - 04/06/2024 10:03 AM EST Images from the original note were not included. TRANSITION CARE MANAGEMENT (TCM) INITIAL CONTACT Gear Design Engineer Outreach Provider Action/FYI: Spoke with patient and she is currently still in [facility] and states will be discharged on 04/08/24. Initial contact with patient post discharge, spoke to patient. Patient identified by name and . TRANSITION CARE MANAGEMENT INITIAL OUTREACH DOCUMENTATION: No data to display SUMMARY: -Pt discharged from [facility] on . -Admitted for: Right Transmetatarsal Amputation Do you have a hospital follow up appointment with your PCP? Appointment on 04/17/24 with Anastasiia Colón. MEDICATIONS: Many patients have questions or concerns about their medications once they are home. None Were you prescribed any new medications? Yes, tizanidine 2 mg - 4mg po Q8 prn, clopidogrel 75mg, Senna, potassium 20 meq, pantoprazole 40mgh, gabapentin 100mg metoprolol succinate 25mg,oxycodone 5mg Were you told to hold any medications? No but holding senna do to diarrhea Were any of your medications discontinued? Yes losartan 50mg, metoprolol succinate 50mg, spironolactone 25mg, cranberry fruit, tizandine 4mg QHS prn, clopidogrel 75mg metoprolol succinate 25mg ER, oxycodone 5mg Do you have any questions about getting or taking your medications? No Your discharge instructions/After visit Summary (AVS) are important in guiding you through the recovery process. Is there anything I might help you understand? No Do you have all the necessary equipment and supplies at home? Yes Medical records from recent hospitalization: Yes documented in this encounterReg[facility]12-05-2024 [facility]12-05-2024 Telephone encounter Note* Telephone Encounter - Bekah Vivas LPN - 04/05/2024 4:51 PM EST No answer. Left providers message on confidential voice mail [facility]12-05-2024 Miscellaneous Notes* Telephone Encounter - Bekah Vivas LPN - 04/05/2024 4:51 PM EST No answer. Left providers message on confidential voice mail * Telephone Encounter - Anastasiia Cloón APRN.CNS - 04/05/2024 4:21 PM EST [facility] * Telephone Encounter - Noemi Cullen RN - 04/05/2024 11:48 AM EST Le with [facility] HH calling and states patient will be discharging from [facility] this Tuesday. Requesting verbal order for patient for Home Health Nursing Home, PT and OT. Asking if provider will sign and follow for these orders. Call Le with verbal order at [phone]. Thank you. documented in this encounterRegency Hospital [facility]12-05-2024 Telephone encounter Note * Telephone Encounter - Anastasiia Colón APRN.CNS - 04/05/2024 4:21 PM EST [facility]12-05-2024 Telephone encounter Note* Telephone Encounter - Noemi Cullen RN - 04/05/2024 11:48 AM EST Le with [facility] calling and states patient will be discharging from [facility] this Tuesday. Requesting verbal order for patient for Home Health Nursing Home, PT and OT. Asking if provider will sign and follow for these orders. Call Le with verbal order at [phone]. Thank you. [facility]12-04-2024 [facility]11-21-2024 [facility]11-18-2024 Evaluation note* Diagnosis Onset Date Resolution Status Admit Date Allergic rhinitis acute r 2023 6:10pm Anemia acute March 19, 2024 6:10pm Atrial fibrillation acute 2023 6:10pm Debility acute March 19, 2024 6:10pm Diabetes mellitus acute r 2023 6:10pm Essential (primary) hypertension acute March 19 024 6:10pm GERD (gastroesophageal reflu x disease) acute March 19 024 6:10pm HFrEF (heart failure with reduced ejection fraction) acute 2023 6:10pm Muscle spasm acute March 6:10pm Neuropathic pain acute March 19, 2024 6:10pm Overactive bladder acute Novemb er 2023 6:10pm Hyperlipidemia chronic March 022023 6:10pm Peripheral vascular disease chronic March 19, 2024 6:10pm 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 March 19, 2024 6:10pm Diabetic wet gangrene of the foot resolved March 19, 024 6:10pm Hematoma of lower leg resolved Mar 6:10pm Osteomyelitis of ankle or fo ot, right, acute resolved March 19, 2 024 6:10pm Acute osteomyelitis of right foot deleted March 19 024 6:10pm Black toe deleted March 19, 2024 6:10pm Anticoagulant long-term use chronic May 14, 2024 1:25pm Aortic valve stenosis chronic Hawk uary 2024 1:25pm Chronic a-fib chronic May 1:25pm Hyperlipidemia chronic May 142024 1:25pm Peripheral vascular disease chronic May 14, 2024 1:25pm Carotid artery disease acute Fe bruary 2024 8:31am Diarrhea acute June 12, 2024 8:31am Peripheral vascular disease chronic June 12, 2024 8:31am Diarrhea acute June 19, 2024 8:20am Gastric ulcer acute June 192024 8:20am GERD (gastroesophageal reflu x disease) acute June 19 8:20am Anticoagulant long-term use chronic June 20, 2024 9:53am Aortic valve stenosis chronic Feb ruary 2024 9:53am Chronic a-fib chronic June 202024 9:53am Hyperlipidemia chronic June 022024 9:53am Peripheral vascular disease chronic June 20, 2024 9:53am [facility] Work Phone: 1(255) 442-587011-18-2024 [facility]11-18-2024 [facility]11-08-2024 Telephone encounter Note* Telephone Encounter - Kierra Santiago MD - 03/09/2024 11:52 AM EST Noted. Kierra Santiago MD [facility]11-08-2024 Miscellaneous Notes* Telephone Encounter - Kierra Santiago MD - 03/09/2024 11:52 AM EST Noted. Kierra Santiago MD * Telephone Encounter - Kisha Irizarry RN - 03/09/2024 9:09 AM EST Phoned Moisés, and given provider's message below with verbalized understanding. Moisés reports pt has only been on the sertraline for 1 week and Moisés has already noticed an improvement - better spirits. Moisés will monitor for now. Moisés wanted to let pcp know, pt was admitted to [facility] yesterday for osteomyelitis in foot, and [facility] will probably amputate some toes. * Telephone Encounter - Kierra Santiago MD - 03/07/2024 7:20 PM EST These is a low risk of GI side effects with sertaline including bleeding, but patient is on a PPI that can be protective. If patient prefers alternative med, can choose a different med that may have lower risk.. Could choose any of the other SSRI meds (they have slight risk). * Telephone Encounter - Noemi Cullen RN - 03/07/2024 3:56 PM EST Moisés with [facility] calling to report that their system shows a [id number] caution listed for patient's sertraline and warfarin. No call back needed to Moisés, unless provider has further orders or recommendation. Noemi Cullen RN documented in this encounterReg[facility]11-[facility]-2024 Telephone encounter Note * Telephone Encounter - Kisha Irizarry RN - 03/09/2024 9:09 AM EST Phoned Moisés, and given provider's message below with verbalized understanding. Moisés reports pt has only been on the sertraline for 1 week and Moisés has already noticed an improvement - better spirits. Moisés will monitor for now. Moisés wanted to let pcp know, pt was admitted to [facility] yesterday for osteomyelitis in foot, and [facility] will probably amputate some toes. [facility]11-07-2024 [facility]11-06-2024 Telephone encounter Note* Telephone Encounter - Kierra Santiago MD - 03/07/2024 7:20 PM EST These is a low risk of GI side effects with sertaline including bleeding, but patient is on a PPI that can be protective. If patient prefers alternative med, can choose a different med that may have lower risk.. Could choose any of the other SSRI meds (they have slight risk). [facility]11-06-2024 Telephone encounter Note* Telephone Encounter - Noemi Cullen RN - 03/07/2024 3:56 PM EST Moisés with [facility] calling to report that their system shows a [id number] caution listed for patient's sertraline and warfarin. No call back needed to Moisés, unless provider has further orders or recommendation. Noemi Cullen RN [facility]11-02-2024 Telephone encounter Note* Telephone Encounter - Noemi Cullen RN - 03/03/2024 8:32 AM EDT Patient returned call and given provider's message below and patient verbalized understanding. Agreeable to plan. Flaco Cullen RN [facility]11-02-2024 Miscellaneous Notes* Telephone Encounter - Noemi Cullen RN - 03/03/2024 8:32 AM EDT Patient returned call and given provider's message below and patient verbalized understanding. Agreeable to plan. Flaco Cullen RN * Telephone Encounter - Kierra Santiago MD - 03/02/2024 8:47 PM EDT Below noted Will try lowest dose sertraline 25 mg--note that the pill can be cut in half if wants to try the very lowest dose. It can be increased as needed as tolerated The following approved medication requests have been transmitted electronically. Requested Prescriptions Signed Prescriptions Disp Refills oxyCODONE IR (ROXICODONE) 5 mg immediate release tablet 42 tablet 0 Sig: Take 1 tablet by mouth every 4 hours as needed for pain for up to 7 days. Authorizing Provider: KIERRA SANTIAGO sertraline (ZOLOFT) 25 mg tablet 30 tablet 2 Sig: Take 1 tablet by mouth once daily. Authorizing Provider: KIERRA SANTIAGO MD * Telephone Encounter - Krys Townsend RN - 03/02/2024 9:52 AM EDT Called and left a detailed voicemail notifying Qasim LEMON with [facility] of providers message. Clinic phone number was left in he had any questions. Called and talked with the Pt, and she was upset. She states she had just found out she was going to be losing her middle toe and was venting, and she thought it would be confidential. She states the leaves were falling, the sun wasn't shining, and she was crying. She was very depressed that day, she has now processed that she is going to lose her toe. (Pt still didn't sound like she was ok with the thought of losing her toe.) Pt states she doesn't do well with pain, and she doesn't want to be awake when they remove. I told her she shouldn't be awake for that. Pt also overwhelmed by having has the bypass in her leg, and states they did a CT and she will have the results by . Pt was ok with Dr Santiago adding a low dose of whichever one of those medications she thought would help best and had the least side effects. Please send to [facility] in [place], Pt states she will be going there today. Pt declined moving her appointment withAnastasiia Colón up sooner. Krys Townsend, RN * Telephone Encounter - Kierra Santiago MD - 03/01/2024 11:05 PM EDT Needs seen if need to consider meds like benzodiazepines for treating anxiety, especially in the setting of expressing would be better off if went to sleep and didn't wake up. Consider consult to palliative care if she qualifies for symptom management if she is not able to come into the office to discuss management of her symptoms. She has an appointment with Anastasiia 03/12 so can discuss then if anxiety not severe enough needs seensooner. Noted had discussed depression and anxiety in the past and Sheryl prescribed Duloxetine, but that caused dizziness. Would see if would like to try low dose of a different med, such as fluoxetine or sertraline or paroxetine. * Telephone Encounter - Bekah Vivas LPN - 03/01/2024 4:55 PM EDT Qasim reports that patient is very anxious and nervous and has mentioned that she would be better off if she went to sleep and didn't wake up. Denies a plan or means to end her own life. Qasim asking if provider would consider something for anxiety as well as the oxycodone * Telephone Encounter - Kierra Santiago MD - 03/01/2024 4:00 PM EDT The following approved medication requests have been transmitted electronically. Requested Prescriptions Signed Prescriptions Disp Refills oxyCODONE IR (ROXICODONE) 5 mg immediate release tablet 42 tablet 0 Sig: Take 1 tablet by mouth every 4 hours as needed for pain for up to 7 days. Authorizing Provider: KIERRA SANITAGO MD * Telephone Encounter - Aleisha Shaffer RN - 02/29/2024 12:17 PM EDT Qasim RN with [facility] calls to notify provider that patient was to see podiatry (Dr. Vargas covering Dr. Blanca) yesterday and was told that she is probably going to have to have a toe or two amputated d/tdry gangrene. Qasim reports that patient is very anxious and nervous and has mentioned that she would be better off if she went to sleep and didn't wake up. Denies a plan or means to end her own life. Qasim asking if provider would consider something for anxiety. Also asking if provider would refill oxycodone prescription ordered from [facility] as she is having quite a bit of pain with the foot. Please review and advise, Aleisha Shaffer RN documented in this encounterReg[facility]11-01-2024 Telephone encounter Note * Telephone Encounter - Kierra Santiago MD - 03/02/2024 8:47 PM EDT Below noted Will try lowest dose sertraline 25 mg--note that the pill can be cut in half if wants to try the very lowest dose. It can be increased as needed as tolerated The following approved medication requests have been transmitted electronically. Requested Prescriptions Signed Prescriptions Disp Refills oxyCODONE IR (ROXICODONE) 5 mg immediate release tablet 42 tablet 0 Sig: Take 1 tablet by mouth every 4 hours as needed for pain for up to 7 days. Authorizing Provider: KIERRA SANTIAGO sertraline (ZOLOFT) 25 mg tablet 30 tablet 2 Sig: Take 1 tablet by mouth once daily. Authorizing Provider: KIERRA SANTIAGO MD [facility]11-01-2024 Telephone encounter Note* Telephone Encounter - Krys Townsend RN - 03/02/2024 9:52 AM EDT Called and left a detailed voicemail notifying Qasim LEMON with [facility] of providers message. Clinic phone number was left in he had any questions. Called and talked with the Pt, and she was upset. She states she had just found out she was going to be losing her middle toe and was venting, and she thought it would be confidential. She states the leaves were falling, the sun wasn't shining, and she was crying. She was very depressed that day, she has now processed that she is going to lose her toe. (Pt still didn't sound like she was ok with the thought of losing her toe.) Pt states she doesn't do well with pain, and she doesn't want to be awake when they remove. I told her she shouldn't be awake for that. Pt also overwhelmed by having has the bypass in her leg, and states they did a CT and she will have the results by . Pt was ok with Dr Santiago adding a low dose of whichever one of those medications she thought would help best and had the least side effects. Please send to [facility] in [place], Pt states she will be going there today. Pt declined moving her appointment withAnastasiia Colón up sooner. Krys Townsend RN [facility]10-31-2024 Telephone encounter Note* Telephone Encounter - Kierra Santiago MD - 03/01/2024 11:05 PM EDT Needs seen if need to consider meds like benzodiazepines for treating anxiety, especially in the setting of expressing would be better off if went to sleep and didn't wake up. Consider consult to palliative care if she qualifies for symptom management if she is not able to come into the office to discuss management of her symptoms. She has an appointment with Anastasiia 03/12 so can discuss then if anxiety not severe enough needs seensooner. Noted had discussed depression and anxiety in the past and Sheryl prescribed Duloxetine, but that caused dizziness. Would see if would like to try low dose of a different med, such as fluoxetine or sertraline or paroxetine. [facility]10-31-2024 Telephone encounter Note* Telephone Encounter - Bekah Vivas LPN - 03/01/2024 4:55 PM EDT Qasim reports that patient is very anxious and nervous and has mentioned that she would be better off if she went to sleep and didn't wake up. Denies a plan or means to end her own life. Qasim asking if provider would consider something for anxiety as well as the oxycodone [facility]10-31-2024 Telephone encounter Note* Telephone Encounter - Kierra Santiago MD - 03/01/2024 4:00 PM EDT The following approved medication requests have been transmitted electronically. Requested Prescriptions Signed Prescriptions Disp Refills oxyCODONE IR (ROXICODONE) 5 mg immediate release tablet 42 tablet 0 Sig: Take 1 tablet by mouth every 4 hours as needed for pain for up to 7 days. Authorizing Provider: KIERRA SANTIAGO MD [facility]10-31-2024 NoteHNO ID: [id number] Author: ANASTASIIA COLÓN APRN.CERTIFIED JUVENILE [employer]OBATION OFFICER Service: ? Author Type: Nurse Specialist Type: Progress Notes Filed: 03/01/2024 16:26 Note Text: Recommend stop lovenox injections. Continue with coumadin 4mg daily and [facility] History of Present illness Narrative* Anastasiia Colón APRN.CERTIFIED JUVENILE PROBATION OFFICER - 03/01/2024 12:09 PM EDT Recommend stop lovenox injections. Continue with coumadin 4mg daily and recheck in 1 week * Iwona Donato RN - 03/01/2024 11:07 AM EDT patient had inr completed at [facility] patients inr is 3.0 (patients inr range is 2.0-3.0) patient is currently taking lovenox twice daily and 4mg coumadin daily patients last dose change was on 02/21/24 due to [facility] discharge (previous dose was 1mg Wed and 2mg all other days) patient has had no changes in medication except for lovenox and coumadin and no missed doses and nochange in diet recommend: patient stop lovenox injection continue coumadin 4mg daily and recheck in 1 week patient has been scheduled for a 1 week follow up inr on 03/08/24 please review and advise on recommendation patient only needs called if provider does not agree with recommendation documented in this encounterRegency [facility]10-31-2024 [facility]Par[facility]10-30-2024 Telephone encounter Note* Telephone Encounter - Aleisha Shaffer RN - 02/29/2024 12:17 PM EDT Qasim RN with [facility] calls to notify provider that patient was to see podiatry (Dr. Vargas covering Dr. Blanca) yesterday and was told that she is probably going to have to have a toe or two amputated d/tdry gangrene. Qasim reports that patient is very anxious and nervous and has mentioned that she would be better off if she went to sleep and didn't wake up. Denies a plan or means to end her own life. Qasim asking if provider would consider something for anxiety. Also asking if provider would refill oxycodone prescription ordered from [facility] as she is having quite a bit of pain with the foot. Please review and advise, Aleisha Shaffer RN [facility]10-28-2024 NoteHNO ID: [id number] Author: IWONA DONATO RN Service: ? Author Type: Registered Nurse Type: Progress Notes Filed: 02/27/2024 16:44 Note Text: pcp agrees with [facility]Par[facility]10-28-2024 History of Present illness Narrative* Iwona Donato RN - 02/27/2024 4:44 PM EDT pcp agrees with information * Iwona Donato RN - 02/27/2024 10:20 AM EDT patient had inr completed at [facility] patients inr is 1.4 (patients inr range is 2.0-3.0) patient is currently taking lovenox twice daily and restarted coumadin on (02/22) with 4mgThurs and 2mg all other days patients last dose change was on 06/02/23 due to a low level of 1.6 (dose at that time was 1mg , and 2mg all other days) patient has had no changes in medication and no missed doses and no change in diet recommend: patient continue lovenox injections twice daily and change coumadin to 4mg daily and recheck in 3 days patient has been scheduled for a 3 day follow up inr on 03/01/24 please review and advise on recommendation patient only needs called if provider does not agree with recommendation documented in this encounterRegency [facility]10-28-2024 [facility]Par[facility]10-[facility]-2024 Telephone encounter Note* Telephone Encounter - Bekah Vivas LPN - 02/24/2024 4:23 PM EDT Patient notified of providers message and verbalized understanding. [facility]10-25-2024 Miscellaneous Notes* Telephone Encounter - Bekah Vivas LPN - 02/24/2024 4:23 PM EDT Patient notified of providers message and verbalized understanding. * Telephone Encounter - Bekah Vivas LPN - 02/24/2024 4:21 PM EDT ----- Message from Anastasiia Sevilla APRN.CNS sent at 02/24/2024 4:15 PM EDT ----- Please let her know that lab work yesterday showed that she is dehydrated. Recommend decreasing lasix from twice a day dosing to once daily dosing and recheck metabolic panel in a week or 2. documented in this encounterRegency Hospital [facility]10-25-2024 Telephone encounter Note * Telephone Encounter - Bekah Vivas LPN - 02/24/2024 4:21 PM EDT ----- Message from Anastasiia Sevilla APRN.CERTIFIED JUVENILE [employer]OBATION OFFICER sent at 02/24/2024 4:15 PM EDT ----- Please let her know that lab work yesterday showed that she is dehydrated. Recommend decreasing lasix from twice a day dosing to once daily dosing and recheck metabolic panel in a week or 2. [facility]10-24-2024 Telephone encounter Note* Telephone Encounter - Bekah Vivas LPN - 02/23/2024 5:12 PM EDT Client services was not able to add INR to labs already drawn. Spoke with patient and she stated INR was drawn at the lab but they were holding onto it to see if it was going to be done at coumadin clinic. video technician that [facility] was gone and could not confirm if this was done. Patient was given coumadin instructions and verbalized understanding. Coumadin clinice for Tuesday was schedules [facility]10-24-2024 Miscellaneous Notes* Telephone Encounter - Bekah Vivas LPN - 02/23/2024 5:12 PM EDT Client services was not able to add INR to labs already drawn. Spoke with patient and she stated INR was drawn at the lab but they were holding onto it to see if it was going to be done at [facility]. video technician that [facility] was gone and could not confirm if this was done. Patient was given coumadin instructions and verbalized understanding. Coumadin clinice for Tuesday was schedules * Telephone Encounter - Anastasiia Colón APRN.CNS - 02/23/2024 4:15 PM EDT She did not check INR today. Check to see if add-on lab can add these to the CBC and CMP it was completed. Recommend she start Coumadin today. Take 4 mg today then resume previous pattern. Take 1 mg on Tuesday and 2 mg all other days. Check INR Coumadin clinic on Tuesday next week, this was not scheduled. documented in this encounterRegency Hospital [facility]10-24-2024 Telephone encounter Note * Telephone Encounter - Anastasiia Colón APRN.CNS - 02/23/2024 4:15 PM EDT She did not check INR today. Check to see if add-on lab can add these to the CBC and CMP it was completed. Recommend she start Coumadin today. Take 4 mg today then resume previous pattern. Take 1 mg on Tuesday and 2 mg all other days. Check INR Coumadin clinic on Tuesday next week, this was not scheduled. [facility]10-24-2024 History of Present illness Narrative* Anastasiia Colón APRN.CERTIFIED JUVENILE PROBATION OFFICER - 02/23/2024 9:00 AM EDT SUBJECTIVE: Pneumococcal Vaccine: 65+(1 of 2 - PCV) Never done RSV Vaccine(1 - 1-dose 75+ series) Never done Diabetic Foot Exam due on 08/10/2023 HPI Eri Pritchard is a 83 year old female. PMH significant for ACTIVE PROBLEM LIST Hyperlipidemia Primary Hypertension Carotid Atherosclerosis Subclinical Hypothyroidism Fatty Liver Heart Murmur Type 2 Diabetes Mellitus With Diabetic Polyneuropathy, Without Long-Term Current Use of Insulin (Hcc) Factor V Deficiency (Hcc) Bilateral Carotid Artery Stenosis Elevated Hdl Factor 5 Leiden Mutation, Heterozygous (Hcc) Peripheral Vascular Disease, Unspecified (Hcc) Presents today for hospital discharge follow-up visit. She was admitted to [facility] for right foot cellulitis right lower extremity ischemia. She underwent right femoropopliteal bypass with Dr. Rojas. She was admitted to PCU with debility. Admitted for rehabilitation and strengthening prior to discharge home with . Discharged home with her on February 08, 2024. She has home health care PT OT usp STN wheelchair. She was discharged on both Lovenox. She was not restarted on Coumadin. Current Coumadin dose: states taking none now, was not restarted at discharge. Followed by Coumadin clinic: yes Bleeding difficulties: none reported She notes wound is healed at femoropopliteal bypass. Right heel wound is healed. She has necrotic toes right great and right fourth with blood pressure with black eschar. These are painful, taking pain medications which help some. She has follow-up imaging scheduled with Dr. Rojas her vascular surgeon. She has a follow-up appointment with Dr. Blanca her artist mannequin coloring. She needs to reschedule appointment with Dr. Herrera cardiology. Review of Systems Constitutional: Negative. Respiratory: Negative. Cardiovascular: Negative. Endocrine: Negative. Objective BP 96/65 Pulse 77 Resp 16 Wt 62.9 kg (138 lb 10.7 oz) BMI 24.96 kg/m Physical Exam Vitals and nursing note reviewed. Constitutional: Appearance: Normal appearance. HENT: Head: Normocephalic and atraumatic. Eyes: Conjunctiva/sclera: Conjunctivae normal. Neck: Thyroid: No thyromegaly. Vascular: Normal carotid pulses. No JVD. Cardiovascular: Rate and Rhythm: Normal rate. Rhythm irregular. Pulses: Carotid pulses are 2+ on the right side and 2+ on the left side. Radial pulses are 2+ on the right side and 2+ on the left side. Heart sounds: Normal heart sounds. Pulmonary: Effort: Pulmonary effort is normal. Breath sounds: Normal breath sounds. Abdominal: General: Bowel sounds are normal. Palpations: Abdomen is soft. Feet: Comments: Black eschar present covering most of the right fourth toe anterior surface, black escharright great toe covering about half of the anterior distal portion without. Foot is warm, skin pinkin foot. Wearing post op showe. Skin: General: Skin is warm and dry. Neurological: General: No focal deficit present. Mental Status: She is alert and oriented to person, place, and time. ALLERGIES Allergen Reactions Accupril [Quinapril] Unknown Calan [Verapamil] Unknown Lotensin [Benazepri* Unknown Sulfa (Sulfonamide * Unknown Medications acetaminophen (TYLENOL) 500 mg tablet EVERY 8 HOURS gabapentin (NEURONTIN) 100 mg capsule TWICE DAILY WITH MEALS enoxaparin (LOVENOX) 80 mg/0.8 mL Q12H magnesium chloride (MAG64) [address] tablet Take 64 mg by mouth two times a day. docusate sodium (STOOL SOFTENER ORAL) Take by mouth. oxyCODONE IR (ROXICODONE) 5 mg immediate release tablet EVERY 4 HOURS NEEDED as needed for Pain Score 4-10 traMADol (ULTRAM) 50 mg tablet EVERY 8 HOURS NEEDED as needed for PAIN 1-3 Ferrous Fumarate 325 mg (106 mg iron) tab Take by mouth. argin/glut/CaHMB/collag/mv-min (RONALDO, WITH COLLAGEN, ORAL) Take by mouth. furosemide (LASIX) 40 mg tablet Take 40 mg by mouth two times a day. spironolactone (ALDACTONE) 25 mg tablet Take 12.5 mg by mouth once daily. losartan (COZAAR) 50 mg tablet Take 50 mg by mouth once daily. metoprolol succinate ER (TOPROL XL) 50 mg 24 hr tablet Take 50 mg by mouth once daily. glimepiride (AMARYL) 2 mg tablet Take 1 tablet by mouth daily with breakfast. Check blood sugars daily, if remaining above 200 consistently in 2 to 4 weeks will increase the dose Magnesium 200 mg tab Take by mouth. oxybutynin ER (DITROPAN XL) 10 mg 24 hr tablet Take 1 tablet by mouth once daily. simvastatin (ZOCOR) 80 mg tablet Take 1 tablet by mouth daily at bedtime. fluticasone (FLONASE) 50 mcg/actuation nasal spray Use 2 Sprays in each nostril once daily. omeprazole (PRILOSEC) 20 mg capsule Take 1 capsule by mouth daily before breakfast. 1/2 hr before meal. ferrous sulfate 325 mg (65 mg iron) tablet Take 325 mg by mouth. sodium chloride (AYR SALINE) 0.65 % nasal spray Use 2 Sprays in the nose as needed. Miscellaneous Medical Supply Take 1 Each by mouth two times a day. Biote [place] 3+CoQ10 --30 mg of CoQ10 tiZANidine (ZANAFLEX) 4 mg tablet Take 1 tablet by mouth at bedtime as needed (muscle spasms). Or muscle spasms (Patient not taking: Reported on 02/23/2024) cholecalciferol (VITAMIN D-3) 5,000 unit tab Take 5,000 Units by mouth. Take 1-2 tablet daily (Patient not taking: Reported on 02/23/2024) melatonin 10 mg cap Take by mouth. (Patient not taking: Reported on 02/23/2024) Ascorbic Acid (VITAMIN C) 1,000 mg tablet Take 1,000 mg by mouth once daily. (Patient not taking: Reported on 02/23/2024) PHENYLephrine-guaiFENesin (MUCUS RELIEF PE) 10-400 mg tab Take by mouth. (Patient not taking: Reported on 02/23/2024) PHENYLephrine (SUDAFED PE) 10 mg tablet Take 10 mg by mouth. (Patient not taking: Reported on 02/23/2024) warfarin (COUMADIN) 2 mg tablet Take 1 tablet by mouth once daily. 1mg T, TH mg M,W,F, Sat, SUN or as directed (Patient not taking: Reported on 02/23/2024) Chromium Picolinate 200 mcg tab Take 1 tablet by mouth once daily. (Patient not taking: Reported on02/23/2024) aspirin 325 mg tablet Take 325 mg by mouth once daily. (Patient not taking: Reported on 02/23/2024) calcium carbonate (CALCIUM 600 ORAL) Take 1,200 mg by mouth. (Patient not taking: Reported on 02/23/2024) CRANBERRY ORAL Take 4,200 mg by mouth. (Patient not taking: Reported on 02/23/2024) cinnamon bark (CINNAMON ORAL) Take 4,200 mg by mouth. (Patient not taking: Reported on 02/23/2024) Lactobac no.41/Bifidobact no.7 (PROBIOTIC-10 ORAL) Take by mouth. (Patient not taking: Reported on 02/23/2024) propylene glycoL (SYSTANE BALANCE) 0.6 % drop 1 Drop. (Patient not taking: Reported on 02/23/2024) vitamin E mixed/tocotrienol (VITAMIN E COMPLEX ORAL) Take 180 mg by mouth. (Patient not taking: Reported on 02/23/2024) Zinc 50 mg tab Take 25 mg by mouth. (Patient not taking: Reported on 02/23/2024) PAST MEDICAL HISTORY Diagnosis Date Atrial fibrillation (HCC) Diabetes mellitus (HCC) Factor V deficiency (HCC) GERD (gastroesophageal reflux disease) TIA (transient ischemic attack) 2001 PAST SURGICAL HISTORY Procedure Laterality Date CAROTID ENDARTERECTOMY Right COLON SURGERY HX HYSTERECTOMY HX REMV CATARACT EXTRACAP,INSERT LENS bilateral 2016 Social History Tobacco Use Smoking status: Never Vaping Use Vaping status: Never Used Substance Use Topics Alcohol use: Yes Comment: occ Drug use: Never FAMILY HISTORY Problem Relation Age of Onset Clotting Disorder Mother Stroke Father Liver Disease Sister cirrhosis Heart Attack Brother CHF Glaucoma No Family History Macular Degen No Family History Latest Ref Rng 08/18/2023 09/15/2023 10/10/2023 10/13/2023 10/17/2023 11/10/2023 WBC 3.70 - 11.00 k/uL 7.80 6.27 RBC 3.90 - 5.20 m/uL 4.09 4.37 Hemoglobin 11.5 - 15.5 g/dL 13.1 14.0 Hematocrit 36.0 - 46.0 % 39.0 42.4 MCV 80.0 - 100.0 fL 95.4 97.0 MCH 26.0 - 34.0 pg 32.0 32.0 MCHC 30.5 - 36.0 g/dL 33.6 33.0 RDW-CV 11.5 - 15.0 % 15.4 (H) 15.0 Platelet Count 150 - 400 k/uL 269 227 MPV 9.0 - 12.7 fL 11.5 13.6 (H) Neut% % 56.9 Abs Neut (ANC) 1.45 - 7.50 k/uL 3.57 Lymph% % 29.8 Abs Lymph 1.00 - 4.00 k/uL 1.87 Berks% % 10.7 Abs Berks <0.87 k/uL 0.67 Eosin% % 1.8 Abs Eosin <0.46 k/uL 0.11 Baso% % 0.6 Abs Baso <0.11 k/uL 0.04 Immature Gran % % 0.2 IMMATURE GRANS (ABS) <0.10 k/uL <0.03 NRBC /100 WBC 0.0 Absolute nRBC <0.01 k/uL <0.01 <0.01 DTYPE Auto Protein, Total 6.3 - 8.0 g/dL 7.3 7.3 7.2 Albumin 3.9 - 4.9 g/dL 4.2 4.1 4.1 Calcium 8.5 - 10.2 mg/dL 10.0 9.7 10.1 9.1 9.6 Bilirubin, Total 0.2 - 1.3 mg/dL 0.5 0.5 0.6 Alkaline Phosphatase 34 - 123 U/L 52 52 94 AST 13 - 35 U/L 20 26 19 ALT 7 - 38 U/L 21 33 46 (H) Glucose 74 - 99 mg/dL 232 (H) 304 (H) 534 (H) 328 (H) 256 (H) BUN 7 - 21 mg/dL 18 17 28 (H) 18 14 Creatinine 0.58 - 0.96 mg/dL 0.76 0.76 1.08 (H) 0.79 0.79 Sodium 136 - 144 mmol/L 139 135 (L) 126 (L) 134 (L) 138 Potassium 3.7 - 5.1 mmol/L 4.0 4.2 4.0 3.9 3.8 Chloride 98 - 107 mmol/L 99 97 89 (L) 99 100 CO2 22 - 30 mmol/L 27 25 21 (L) 21 (L) 26 Anion Gap 8 - 15 mmol/L 13 13 16 (H) 14 12 eGFR >=60 mL/min/1.73m 78 78 51 (L) 74 74 Cholesterol, Total <200 mg/dL 154 183 Triglyceride <150 mg/dL 463 (H) 527 (H) HDL Cholesterol >39 mg/dL 23 (L) 25 (L) Non HDL Cholesterol <130 mg/dL 131 (H) 158 (H) Fasting Time hrs 13 14 VLDL Cholesterol <30 mg/dL -- -- VLDL Cholesterol 89 (H) 114 (H) TC:HDL Ratio <5.10 6.70 (H) 7.32 (H) LDL Cholesterol -- -- LDL:HDL Ratio -- -- Creatinine, Ur Random (UCRR) 20.0 - 300.0 mg/dL 69.6 Albumin, Urine Random mg/L 54.8 Albumin/Creat Ratio <30 mg/g 79 (H) Hemoglobin A1C 4.3 - 5.6 % 8.1 (H) 9.1 (H) Estimated Average Glucose mg/dL 186 214 INR (POCT) 0.8 - 1.2 2.1 (H) 2.9 (H) 2.4 (H) Internal Quality Check Acceptable Acceptable Acceptable LDL Cholesterol, Direct <100 mg/dL 42 44 TSH 0.270 - 4.200 mIU/L 2.580 Bilirubin, Conjug <0.2 mg/dL <0.2 ASSESSMENT/PLAN: 1. Critical limb ischemia of right lower extremity (HCC) - ICD9: 440.22, ICD10: I70.221 (primary diagnosis) 3. Acute occlusion of artery - ICD9: 444.9, ICD10: I70.90 4. Peripheral vascular disease (HCC) - ICD9: 443.9, ICD10: I73.9 5. History of femoropopliteal bypass - ICD9: V45.89, ICD10: Z98.890 Has upcoming appointment with vascular surgeon and imaging study scheduled. 2. Generalized weakness - ICD9: 780.79, ICD10: R53.1 - COMPREHENSIVE METABOLIC PANEL - COMPLETE BLOOD COUNT AND DIFFERENTIAL 6. Dry gangrene (HCC) - ICD9: 785.4, ICD10: I96 Involving right great toe and right fourth toe. Has podiatry following this 7. Pressure injury of right heel, stage 2 (HCC) - ICD9: 707.07, 707.22, ICD10: L89.612 Notes this is healing well 8. Factor V deficiency (HCC) - ICD9: 286.3, ICD10: D68.2 Currently on enoxaparin only. Will check INR today and resume Coumadin. 9. Type 2 diabetes mellitus with diabetic polyneuropathy, without long-term current use of insulin (HCC) - ICD9: 250.60, 357.2, ICD10: E11.42 Currently controlled continue current treatment unchanged. Continue to monitor. - COMPREHENSIVE METABOLIC PANEL 10. Factor 5 Leiden mutation, heterozygous (HCC) - ICD9: 289.81, ICD10: D68.51 - PROTHROMBIN TIME Anastasiia Colón APRN.CNS Medical Decision Making: Problems: Moderate: Acute illness with systemic symptoms Data: Unique test result(s) reviewed: 3+ Unique test(s) ordered: 1 Risk: Moderate: Drug management Medical Decision Making Level: 4 - Moderate documented in this encounterReg[facility]-24-[facility]24 Note[facility]24 Telephone encounter Note* Telephone Encounter - Sheryl Reyes APRN.CNP - 02/13/2024 1:56 PM EDT Noted and agree [facility]10-14-2024 Miscellaneous Notes* Telephone Encounter - Sheryl Reyes APRN.CNP - 02/13/2024 1:56 PM EDT Noted and agree * Telephone Encounter - Kisha Irizarry RN - 02/13/2024 1:36 PM EDT Jaylan- [facility]- reporting PT POC: will see patient 2 x's week for 3 weeks, for functional and mobility training. documented in this encounterReg[facility]10-14-2024 Telephone encounter Note * Telephone Encounter - Kisha Irizarry, RN - 02/13/2024 1:36 PM EDT Jaylan- [facility]- reporting PT POC: will see patient 2 x's week for 3 weeks, for functional and mobility training. [facility]10-14-2024 Telephone encounter Note* Telephone Encounter - Kierra Santiago MD - 02/13/2024 1:28 PM EDT Noted. Kierra Santiago MD [facility]10-14-2024 Miscellaneous Notes* Telephone Encounter - Kierra Santiago MD - 02/13/2024 1:28 PM EDT Noted. Kierra Santiago MD * Telephone Encounter - Aleisha Shaffer RN - 02/09/2024 3:59 PM EDT Qasim calls back to let provider know that patient declined OT/ST services and will only be receiving SN/PT. Aleisha Shaffer RN * Telephone Encounter - Krys Townsend RN - 02/09/2024 3:46 PM EDT Moisés [facility] called in and reports he started Pts HH POC today. He states starting next week he would like to see the Pt twice a week for 1 week, then once a week for 4 weeks. He is asking if provider will follow for HH. He states nursing will be working with Pt on wound care to her feet, butthey will be getting wound care orders from Dr Blanca. He reports when Pt was on TCU Dr Smith had ordered scheduled stool softeners for the Pt sennosides-docusate take 2 tables daily, and the Pt is refusing. The Pt states she will take the stool softener when needed. He also reports that Dr Rose had sent the Pt home on two different narcotics Oxycodone and Tramadol. He said the Pt was rating her pain a 4/10 and has only been taking Tylenol for her pain. He said the providers list had the Pt taking Oxybutin, but he states the Pt said she hasn't taken that for a couple months. Updated this on the medication list. documented in this encounterRegency [facility]10-10-2024 Telephone encounter Note * Telephone Encounter - Aleisha Shaffer RN - 02/09/2024 3:59 PM EDT Qasim calls back to let provider know that patient declined OT/ST services and will only be receiving SN/PT. Aleisha Shaffer RN [facility]10-10-2024 Telephone encounter Note* Telephone Encounter - Krys Townsend RN - 02/09/2024 3:46 PM EDT Moisés [facility] called in and reports he started Pts HH POC today. He states starting next week he would like to see the Pt twice a week for 1 week, then once a week for 4 weeks. He is asking if provider will follow for HH. He states nursing will be working with Pt on wound care to her feet, butthey will be getting wound care orders from Dr Blanca. He reports when Pt was on TCU Dr Smith had ordered scheduled stool softeners for the Pt sennosides-docusate take 2 tables daily, and the Pt is refusing. The Pt states she will take the stool softener when needed. He also reports that Dr Rose had sent the Pt home on two different narcotics Oxycodone and Tramadol. He said the Pt was rating her pain a 4/10 and has only been taking Tylenol for her pain. He said the providers list had the Pt taking Oxybutin, but he states the Pt said she hasn't taken that for a couple months. Updated this on the medication list. [facility]10-09-2024 Telephone encounter Note* Telephone Encounter - Daisy Howard LPN - 02/08/2024 1:11 PM EDT Le aware of same. [facility]10-09-2024 Miscellaneous Notes* Telephone Encounter - Daisy Howard LPN - 02/08/2024 1:11 PM EDT Le aware of same. * Telephone Encounter - Sheryl Reyes APRN.CNP - 02/08/2024 12:54 PM EDT Yes, we will follow, please return call. Thanks * Telephone Encounter - Prerna Greenfield RN - 02/08/2024 11:16 AM EDT Le from [facility] calls and states that patient is being discharged from TCU on 02/08/2024 with the diagnosis of femoral bypass. Le asking if provider willing to follow patient with orders for usp, physical therapy, occupational therapy, and speech therapy. If agreeable please give Le a call back [phone]. Thank you, Prerna Greenfield RN documented in this encounterRegency Hospital [facility]10-09-2024 Telephone encounter Note * Telephone Encounter - Sheryl Reyes APRN.CNP - 02/08/2024 12:54 PM EDT Yes, we will follow, please return call. Thanks [facility]10-09-2024 Telephone encounter Note* Telephone Encounter - Prerna Greenfield RN - 02/08/2024 11:16 AM EDT Le from [facility] calls and states that patient is being discharged from TCU on 02/08/2024 with the diagnosis of femoral bypass. Le asking if provider willing to follow patient with orders for usp, physical therapy, occupational therapy, and speech therapy. If agreeable please give Le a call back [phone]. Thank you, Prerna Greenfield RN [facility]10-02-2024 [facility]09-27-2024 [facility]09-27-2024 [facility]09-20-2024 Note [facility]09-14-2024 NoteParma [facility]09-14-2024 History of Present illness Narrative* Nancy Albert RN - 01/14/2024 2:48 PM EDT Transitional Care Management (TCM) Follow-Up Note PCP Update / Actionable Items N/A - No specialty updates needed Patient Source: [facility] ([facility]) Discharge Outreach Summary: Pt reports she had a new issue yesterday - water blisters on her right toes that became infected. Was seen for evaluation 01/13 at [facility] and rx antibiotics for 10 days. Advised pt will continue to follow up with her to see if int med f/u appt reevaluation needed. Pt states Blood glucose this Am was 123 before breakfast. Patient discharged from [facility] Discharge date: 01/05/24 Admitted for: SOB, pneumonia Readmission Risk: n/a Value-Based Contract: Marley GOVEA Contact: Contact made with patient: Yes Spoke to: Patient Validation: Validated the person spoken to is actively involved in the patient's care. The patient was identified by Name and Date of . I'd like to get an update on how you're doing since our last phone call. Is now a good time to talk? Yes Symptoms: Are you feeling about the same, better or worse since leaving the hospital? Better Weekly Outreach: 1st Outreach Medications: Do you have any questions about taking your medications, including which medications you should be on, or do you need refills on your medications? No Patient Questions / Concerns: Do you have any questions related to your discharge? No Appointment / TCM Follow-Up: Have you had a follow-up visit with your Primary Care Provider or Specialist since you were discharged? Yes Do you need any assistance with scheduling or changing your follow-up appointments? Patient alreadyhas an appointment scheduled Education Patient and family educated on issues/questions related to reason for admission, transition of caretopics, and follow-up needed upon discharge. Targets addressed / completed during outreach: Patient has TCM appointment with PC within 14 days Outreach Outcome: Continue TCM Outreach for remainder of 30 days Care Management partners utilized: N/A Nancy Albert RN January 14, 2024 2:55 PM documented in this encounterRegency Hospital [facility]09-13-2024 NoteParma [facility]09-13-2024 History of Present illness Narrative* Nataliia Rehman APRN.DAMASO - 01/13/2024 11:09 AM EDT Patient came in with extreme right foot pain. Patient says it is over a 10 out of 10. Patient says she can even touch it. Patient's foot is purple in color. Patient's foot is cool to touch. There is an open wound on the great toe. She does have a water blister at the base of 2 3 and 4. Patient saysthe pain is terrible. Patient cannot wiggle her toes. [facility] Patient was okay with this care plan. Patient's will take her now. documented in this encounterRegency Hospital [facility]09-11-2024 Instructions* Patient Instructions* Kierra Santiago MD - 01/11/2024 5:56 PM EDT documented in this encounterRegency Hospital [facility]09-11-2024 History of Present illness Narrative* Kierra Santiago MD - 01/11/2024 5:34 PM EDT Transitional Care Management TCM Eligibility Documentation Program: Transitional Care Management Status: Enrolled Effective Dates: 01/06/2024 - present Responsible Staff: Nancy Albert RN Discharge date: 01/03/2024 (Program start) Date of initial contact: 01/06/2024 Initial contact Target status: Successful; Contact made within 2 business days post-discharge Provider Documentation Eri Pritchard is a 83 year old female here today for a follow up from recent hospitalization. I have reviewed the patient's hospital course including discharge summary, discharge medications , and follow up needs with the patient and any family members present at today's visit. HPI Patient presents with: F/U 3 Month: Labs prior SUBJECTIVE: Eri Pritchard is a 83 year old year old lady here today for lady for [facility] hospital follow up appointment for review of medical conditions. Patient is an 83-year-old female here for [facility] hospital follow up appointment-- presenting with footpain and a blister on the right foot following a recent hospitalization for CHF. Patient was hospitalized from 12/30 to 01/02 for CHF, during which she developed a water blister on the right foot that subsequently ruptured. Since then, she has experienced severe pain in the joints and the bottom ofthe foot, describing the pain as a 10/10. She has been applying frankincense and myrrh oil, as wellas various thick foot creams, to the affected area. She also applied Neosporin to the blister, but it did not provide relief. She is currently using compression socks, which she finds helpful. Patient also reports a cramping pain in the aguirre, which she initially thought was a pulled muscle. A friend suggested it might be DVT, but patient is on warfarin and does not believe it is a blood clot. She notes that the pain in the aguirre is exacerbated by walking differently to avoid putting pressure on the ball of the foot, where there is a fissure in the skin. She has also noticed a purplish discoloration in the foot, which varies depending on the position of the foot (elevated vs. dependent). She reports that the foot is cooler to the touch compared to the other foot, which is not as reddish or swollen. Patient is currently taking furosemide 40 mg BID, losartan 50 mg QD, metoprolol 50 mg QD, and spironolactone 12.5 mg QD. She has discontinued potassium supplements and CoQ10. She is monitoring her blood sugar, weight, and blood pressure daily, with recent blood sugar readings around 133. She has anupcoming appointment with a [facility] gatherer on 01/23. PAST MEDICAL HISTORY No date: Atrial fibrillation (HCC) No date: Diabetes mellitus (HCC) No date: Factor V deficiency (HCC) No date: GERD (gastroesophageal reflux disease) No date: TIA (transient ischemic attack) Comment: 2001 Current Outpatient Medications Medication Sig furosemide (LASIX) 40 mg tablet Take 40 mg by mouth two times a day. spironolactone (ALDACTONE) 25 mg tablet Take 12.5 mg by mouth once daily. losartan (COZAAR) 50 mg tablet Take 50 mg by mouth once daily. metoprolol succinate ER (TOPROL XL) 50 mg 24 hr tablet Take 50 mg by mouth once daily. glimepiride (AMARYL) 2 mg tablet Take 1 tablet by mouth daily with breakfast. Check blood sugars daily, if remaining above 200 consistently in 2 to 4 weeks will increase the dose tiZANidine (ZANAFLEX) 4 mg tablet Take 1 tablet by mouth at bedtime as needed (muscle spasms). Or muscle spasms oxybutynin ER (DITROPAN XL) 10 mg 24 hr tablet Take 1 tablet by mouth once daily. simvastatin (ZOCOR) 80 mg tablet Take 1 tablet by mouth daily at bedtime. warfarin (COUMADIN) 2 mg tablet Take 1 tablet by mouth once daily. 1mg T, TH mg M,W,F, Sat, SUN or as directed fluticasone (FLONASE) 50 mcg/actuation nasal spray Use 2 Sprays in each nostril once daily. omeprazole (PRILOSEC) 20 mg capsule Take 1 capsule by mouth daily before breakfast. 1/2 hr before meal. aspirin 325 mg tablet Take 325 mg by mouth once daily. Lactobac no.41/Bifidobact no.7 (PROBIOTIC-10 ORAL) Take by mouth. propylene glycoL (SYSTANE BALANCE) 0.6 % drop 1 Drop. Miscellaneous Medical Supply Take 1 Each by mouth two times a day. Biote [place] 3+CoQ10 --30 mg of CoQ10 cholecalciferol (VITAMIN D-3) 5,000 unit tab Take 5,000 Units by mouth. Take 1-2 tablet daily Magnesium 200 mg tab Take by mouth. melatonin 10 mg cap Take by mouth. Ascorbic Acid (VITAMIN C) 1,000 mg tablet Take 1,000 mg by mouth once daily. PHENYLephrine-guaiFENesin (MUCUS RELIEF PE) 10-400 mg tab Take by mouth. PHENYLephrine (SUDAFED PE) 10 mg tablet Take 10 mg by mouth. Chromium Picolinate 200 mcg tab Take 1 tablet by mouth once daily. ferrous sulfate 325 mg (65 mg iron) tablet Take 325 mg by mouth. calcium carbonate (CALCIUM 600 ORAL) Take 1,200 mg by mouth. CRANBERRY ORAL Take 4,200 mg by mouth. cinnamon bark (CINNAMON ORAL) Take 4,200 mg by mouth. sodium chloride (AYR SALINE) 0.65 % nasal spray Use 2 Sprays in the nose as needed. vitamin E mixed/tocotrienol (VITAMIN E COMPLEX ORAL) Take 180 mg by mouth. Zinc 50 mg tab Take 25 mg by mouth. No current facility-administered medications for this visit. Review of Systems BP 124/68 Pulse (!) 58 Temp 37.5 C (99.5 F) Resp 18 Wt 68.2 kg (150 lb 5.7 oz) SpO2 94% BMI 27.06 kg/m Last 5 Encounter Wt Readings: Date: Wt: 01/11/2024 68.2 kg (150 lb 5.7 oz) 12/31/2023 70.8 kg (156 lb 1.4 oz) 12/11/2023 69.4 kg (153 lb) 11/18/2023 67.6 kg (149 lb) 11/14/2023 66.2 kg (146 lb) No waist measurement recorded Estimated body mass index is 27.06 kg/m as calculated from the following: Height as of 11/18/23: 158.8 cm (5' 2.5). Weight as of this encounter: 68.2 kg (150 lb 5.7 oz). Last 5 Encounter BP Readings: Date: BP: 01/11/2024 124/68 12/11/2023 126/84 11/18/2023 132/78 11/14/2023 150/79 10/10/2023 106/71 Physical Exam Constitutional: Appearance: Normal appearance. HENT: Head: Normocephalic. Eyes: Conjunctiva/sclera: Conjunctivae normal. Cardiovascular: Rate and Rhythm: Normal rate and regular rhythm. Heart sounds: Normal heart sounds. Pulmonary: Effort: Pulmonary effort is normal. Breath sounds: Normal breath sounds. Musculoskeletal: Right lower leg: Edema present. Left lower leg: No edema. Feet: Right foot: Skin integrity: Ulcer (top of great toe--very superficial and about 5mm) and fissure (bottom of foot) present. Skin: General: Skin is warm and dry. Comments: Lower legs: Mild swelling in the right lower extremity. Pain in the right foot, particularly in the joints and bottom of the foot. Presence of a water blister on the right big toe and a small fissure on the bottom of the right foot. Neurological: General: No focal deficit present. Mental Status: She is alert and oriented to person, place, and time. Psychiatric: Mood and Affect: Mood normal. Behavior: Behavior normal. Thought Content: Thought content normal. Judgment: Judgment normal. ASSESSMENT AND PLAN # Acute on chronic congestive heart failure, unspecified heart failure type (HCC) (I50.9) - Recent hospitalization from 12/30 to 01/02 for CHF exacerbation; current ejection fraction is 35-40%. - Medications adjusted: Furosemide 40 mg BID, Losartan 50 mg daily, Metoprolol 50 mg daily, Spironolactone 12.5 mg daily. - Discontinued qyyb-vmp-novexaj potassium supplementation. - Follow-up with cardiology scheduled for 01/23 to monitor potassium levels and adjust medications as needed. - Advised patient on fluid and salt intake management. # Type 2 diabetes mellitus with diabetic polyneuropathy, without long-term current use of insulin (HCC) (E11.42) - Blood glucose levels well-controlled; recent reading 133 mg/dL. - Continue current medication regimen. - Patient monitoring blood glucose, weight, and blood pressure daily. # Hypokalemia (E87.6) - Discontinued aong-yur-lmnpgra potassium supplementation. - Monitoring potassium levels with cardiology follow-up on 01/23. # Leg cramp (R25.2) - Likely secondary to altered gait due to foot pain. - Continue wearing compression socks. - Monitor for improvement as foot pain resolves. # Ulcer of right foot, limited to breakdown of skin (HCC) (L97.511) - Ulcer on right great toe; no signs of infection. - Applied Tegaderm dressing to protect the area and promote healing. - Provided additional Tegaderm sheets for home use. - Advised patient to avoid rubbing and pressure on the affected area. # Callus of foot (L84) - Callus noted on the bottom of the right foot. - Advised use of thick moisturizing creams to soften the callus once the ulcer begins to heal. # Dependent rubor (L53.9) - Observed purplish discoloration of the right foot, likely due to dependent rubor and decreased circulation. - Continue elevation of the foot to improve circulation with regards to venous return to help with swelling. - Monitor for changes in color and swelling. Kierra Santiago MD documented in this encounterRegency Hospital [facility]09-11-2024 NotePar[facility]09-07-2024 NoteParma Community [facility] History of Present illness Narrative* Kierra Santiago MD - 01/06/2024 7:09 PM EDT Patient has appointment next week. Agree with ER evaluation if has signs/symptoms of DVT that are severe. Leg cramping does not sound typical of DVT, but if she had those symptoms associated with DVT before then get evaluated as needed. * Nancy Albert RN - 01/06/2024 10:49 AM EDT Transition Care Management (TCM) Initial Outreach PCP Update / Actionable Items PCP: Pt reports her breathing and cough is generally improved , blood sugar was 129 this AM. Pt states after discharge last night she did develop right calf pain . States it was difficult to sleep and aching, cramping when she walks . Does not appear swollen or reddened to pt Has a history of Factor V and takes Coumidan 2mg daily, Wed. 1mg Expressed concern for DVT - pt states she is currently at a mandatory court hearing today- she states will need to turn her phone off shortly and uncertain how long she will have off today . Advised will FYI PCP office , pt is aware may need to return to the ER or be seen NARENDRA. HRTIC TCM Home Visit Referral Source of Stratification: TCM HUB Hospital Admission Status: Discharged Readmission Risk Score: n/a Patient's zip code: [address] Is zip code within program service area: No Patient meets program referral criteria: No Patient does not qualify for High Risk TCM Home Visit program due to: Readmission Risk Score does not meet criteria Disposition: Patient does not qualify for HRTIC, will provide TCM outreach follow-up for 30-days Patient Source: [id number] (OON) Discharge Outreach Summary: as above Patient discharged from [facility] Discharge date: 01/05/24 Admitted for: SOB, pneumonia Readmission Risk: n/a Value-Based Contract: Marley GOVEA Contact: Contact made with patient: Yes Hi, my name is Nancy Albert RN and I am calling from the [facility] on behalf of your Primary Care Provider, Kierra Santiago MD. I understand you were recently in the hospital, so I am calling to check in with you to ensure you are feeling well now that you are home. May I ask you a few questions related to your hospital stay and well-being? Yes Spoke to: Patient Validation: Validated the person spoken to is actively involved in the patient's care. The patient was identified by Name and Date of . Symptoms: Are you feeling about the same, better or worse since leaving the hospital? Better Medications: Do you have any questions about taking your medications, including which medications you should be on, or do you need refills on your medications? No Medication Review: Declined at this time per patient preference Discharge Instructions: Your Discharge Instructions / After Visit Summary (AVS) are important in guiding you through the recovery process. Do you have any questions related to your discharge instructions? No Home Care: Were you discharged with home care? No Equipment: Do you have all the necessary equipment and supplies needed at your home? Yes The patient verbalizes understanding the use of the equipment and supplies Social: We would like to make sure you have what you need so that your basics needs are met - including your personal safety, food, housing and medications. Would you like to speak with a social work steaming cabinet tender to help give you support for any of these needs? Unable to assess It can be normal to feel anxious or down during a time like this. Would you like to talk to a mental health professional about how you have been feeling? unable to assess Action Taken: No needs verbalized. No action required. Follow-Up Appointment: [Appointment / TCM Follow-up within 14 days] I would like to help you schedule a hospital follow-up virtual or telephone visit with your PCP. This is a great way for you to connect with your provider to ensure you have safely transitioned home.If you are agreeable, I will send your request to a recruitment director who will contact and assist you with that appointment. This will give you an opportunity to ask any questions or address any concerns youmay have with your PCP. Inform the patient that if they have any questions or concerns prior to that appointment, to call their PCP's office right away. Appointment Action: No action required; patient already has appointment scheduled. Education Patient and family educated on issues/questions related to reason for admission, transition of caretopics, and follow-up needed upon discharge. Targets addressed / completed during outreach: Contact patient within two (2) business days Outreach Outcome: Enrolled in TCM Care Management partners utilized: N/A Nancy Albert RN January 06, 2024 10:55 AM documented in this encounterReg[facility] History of Present illness Narrative* Iwona Donato RN - 01/05/2024 9:36 AM EDT patient had inr completed at [facility] patients inr is 1.9 (patients inr range is 2.0-3.0) patient is currently taking 1mg Wed and 2mg all other days patients last dose change was on 06/02/23 due to a low level of 1.6 (dose at that time was 1mg Tues,Thurs and 2mg all other days) patient has had no changes in medication and patient missed 2 doses due to was in H and no changein diet Advised patient to continue on the same dose(s) and that they would only be contacted regarding dosage and follow up instructions after review with provider, if a change is needed. Written instructions given and patient verbalized understanding. Presently scheduled in 2 weeks (01/19/24) for follow up INR since level is slightly low but most likely due to missed does documented in this encounterReg[facility]09-03-2024 [facility]08-31-20[facility]08-[facility]-2024 History of Present illness Narrative* Saray Acosta PA - 12/31/2023 11:56 AM EDT I was asked to triage this patient by nursing staff. Patient presents with shortness of breath. Shewas treated for pneumonia on 12/11/2023 with doxycycline and Augmentin. Patient finished these medications. She states that she is more short of breath and still has a cough. She also has a blister onher right foot. Patient's pulse ox here is 89 to 90% on room air. Due to shortness of breath with hypoxia, recommended evaluation in the emergency room. Patient declines EMS, her will take her now to [facility]. documented in this encounterReg[facility]08-30-2024 Telephone encounter Note * Telephone Encounter - Raul Andrade MA - 12/30/2023 10:44 AM EDT Can this be changed to 75 mg tab BID instead of 50 mg 1.5 tabs BID? [facility]08-30-2024 Miscellaneous Notes* Telephone Encounter - Raul Andrade MA - 12/30/2023 10:44 AM EDT Can this be changed to 75 mg tab BID instead of 50 mg 1.5 tabs BID? * Telephone Encounter - María Zelaya - 12/30/2023 9:05 AM EDT Prescription Refill Information The patient has been identified by name and date of : Yes Caregiver verified no other encounters exist for this prescription request: Yes Caregiver confirmed with patient/requestor that no other refills are due, in the near future, with this provider at this time: Yes The last office visit in the department: 11-14-23 Does the patient have a future office visit with this provider/department: Yes Requested Prescriptions Pending Prescriptions Disp Refills metoprolol tartrate, short acting, (LOPRESSOR) 50 mg tablet 270 tablet 3 Sig: Take 1.5 tablets by mouth two times a day. María Petty December 30, 2023 9:08 AM documented in this encounterRegency Hospital [facility]08-30-2024 Telephone encounter Note * Telephone Encounter - María Zelaya - 12/30/2023 9:05 AM EDT Prescription Refill Information The patient has been identified by name and date of : Yes Caregiver verified no other encounters exist for this prescription request: Yes Caregiver confirmed with patient/requestor that no other refills are due, in the near future, with this provider at this time: Yes The last office visit in the department: 11-14-23 Does the patient have a future office visit with this provider/department: Yes Requested Prescriptions Pending Prescriptions Disp Refills metoprolol tartrate, short acting, (LOPRESSOR) 50 mg tablet 270 tablet 3 Sig: Take 1.5 tablets by mouth two times a day. María Petty December 30, 2023 9:08 AM [facility]08-27-2024 Telephone encounter Note* Telephone Encounter - Romina Sawant LPN - 12/27/2023 10:00 AM EDT Patient aware. Romina Sawant LPN [facility]08-27-2024 Miscellaneous Notes* Telephone Encounter - Romina Sawant LPN - 12/27/2023 10:00 AM EDT Patient aware. Romina Sawant LPN * Telephone Encounter - Kierra Santiago MD - 12/27/2023 9:58 AM EDT Filed * Telephone Encounter - Romina Sawant LPN - 12/27/2023 9:45 AM EDT Patient at , fasting to have labwork drawn for OV on 01/11/24. No orders in [facility] at this time. Will have Provider review and file orders if needed. Call ext [phone] to update Briggitte-PSS when completed. Romina Sawant LPN documented in this encounterRegency Hospital [facility]08-27-2024 Telephone encounter Note * Telephone Encounter - Kierra Santiago MD - 12/27/2023 9:58 AM EDT Filed [facility]08-27-2024 Telephone encounter Note* Telephone Encounter - Romina Sawant LPN - 12/27/2023 9:45 AM EDT Patient at , fasting to have labwork drawn for OV on 01/11/24. No orders in [facility] at this time. Will have Provider review and file orders if needed. Call ext [phone] to update Briggitte-PSS when completed. Romina Sawant LPN [facility]08-12-2024 Telephone encounter Note* Telephone Encounter - Saray Acosta PA - 12/12/2023 10:28 AM EDT Called patient and let her know that chest x-ray does reveal pneumonia. She also has a lung nodule which was seen on prior CT. Patient states that her primary doctor is following the nodule. Prescribe doxycycline and Augmentin due to comorbidities. Patient will take these as prescribed. Advised if any worsening symptoms go to ER [facility]08-12-2024 Miscellaneous Notes* Telephone Encounter - Saray Acosta PA - 12/12/2023 10:28 AM EDT Called patient and let her know that chest x-ray does reveal pneumonia. She also has a lung nodule which was seen on prior CT. Patient states that her primary doctor is following the nodule. Prescribe doxycycline and Augmentin due to comorbidities. Patient will take these as prescribed. Advised if any worsening symptoms go to ER documented in this encounterRegency Hospital [facility]08-12-2024 History of Present illness Narrative* Praful Ledesma RT(R) - 12/12/2023 10:00 AM EDT Radiology Service Progress Note PATIENT NAME: Eri Pritchard DATE OF SERVICE: December 12, 2023 TIME: 10:09 AM PATIENT IDENTITY VERIFICATION COMPLETED USING TWO (2) IDENTIFIERS: Name and Date of confirmedby patient verbally. FALL SCREENING: Has the patient had 2 falls in the last year or 1 fall with injury or currently using an Ambulatory Assistive Device (Walker, Cane, Wheelchair, Crutches, etc.)? No PATIENT GENDER DATA: Female. status: : No status: NO. PATIENT RELEVANT IMPLANT DATA REVIEWED: Not Applicable PATIENT PRESENTS WITH AN IMPLANTABLE OR ATTACHED WAREHOUSE SELECTOR: No RADIOLOGY DEPARTMENT: General X-ray: Exam(s) Completed: Chest X-Ray PERIPHERAL IV DATA: Not applicable SIGNED BY: RT Velvet(R) December 12, 2023 10:09 AM documented in this encounterRegency Hospital [facility]08-12-2024 NotePar[facility]08-12-2024 Telephone encounter Note* Telephone Encounter - Judy Puri MA - 12/12/2023 7:24 AM EDT Patient given results and verbalized understanding of instructions given. Judy Puri MA [facility]08-12-2024 Miscellaneous Notes* Telephone Encounter - Judy Puri MA - 12/12/2023 7:24 AM EDT Patient given results and verbalized understanding of instructions given. Judy Puri MA * Telephone Encounter - Saray Acosta PA - 12/12/2023 7:05 AM EDT Negative for COVID flu RSV documented in this encounterRegency Hospital [facility]08-12-2024 Telephone encounter Note * Telephone Encounter - Saray Acosta PA - 12/12/2023 7:05 AM EDT Negative for COVID flu RSV [facility] Work Phone: 1(439) 532-597008-11-2024 NotePar[facility]08-11-2024 History of Present illness Narrative* Saray Acosta PA - 12/11/2023 10:09 AM EDT This note was created using SpeakWorksriter. Subjective Eri Pritchard is a 83 year old female. HPI 83-year-old female presents for cough, fever, nasal congestion x 1 day. Patient states yesterday she started getting a dry cough. She had a fever this morning. She has had some nasal congestion. She states that her daughter and grandkids were recently sick with pneumonia. Patient denies any chest pain or shortness of breath. No vomiting or diarrhea. Still able to eat and drink. Has not taken anything for her symptoms. No other complaint. PAST MEDICAL HISTORY No date: Atrial fibrillation (HCC) No date: Diabetes mellitus (HCC) No date: Factor V deficiency (HCC) No date: GERD (gastroesophageal reflux disease) No date: TIA (transient ischemic attack) Comment: 2001 PAST SURGICAL HISTORY No date: CAROTID ENDARTERECTOMY; Right No date: COLON SURGERY HX No date: HYSTERECTOMY HX No date: REMV CATARACT EXTRACAP,INSERT LENS Comment: bilateral 2017 ALLERGIES Accupril [Quinapril], Calan [Verapamil], Lotensin [Benazepril Hcl], and Sulfa (Sulfonamide Antibiotics) MEDICATIONS glimepiride (AMARYL) 2 mg tablet Take 1 tablet by mouth daily with breakfast. Check blood sugars daily, if remaining above 200 consistently in 2 to 4 weeks will increase the dose tiZANidine (ZANAFLEX) 4 mg tablet Take 1 tablet by mouth at bedtime as needed (muscle spasms). Or muscle spasms amLODIPine (NORVASC) 2.5 mg tablet Take 1 tablet by mouth once daily. For blood pressure metoprolol tartrate, short acting, (LOPRESSOR) 50 mg tablet Take 1.5 tablets by mouth two times a day. cholecalciferol (VITAMIN D-3) 5,000 unit tab Take 5,000 Units by mouth. Take 1-2 tablet daily Magnesium 200 mg tab Take by mouth. melatonin 10 mg cap Take by mouth. Ascorbic Acid (VITAMIN C) 1,000 mg tablet Take 1,000 mg by mouth once daily. PHENYLephrine-guaiFENesin (MUCUS RELIEF PE) 10-400 mg tab Take by mouth. PHENYLephrine (SUDAFED PE) 10 mg tablet Take 10 mg by mouth. oxybutynin ER (DITROPAN XL) 10 mg 24 hr tablet Take 1 tablet by mouth once daily. losartan-hydroCHLOROthiazide (HYZAAR) 100-25 mg per tablet Take 1 tablet by mouth once daily. simvastatin (ZOCOR) 80 mg tablet Take 1 tablet by mouth daily at bedtime. warfarin (COUMADIN) 2 mg tablet Take 1 tablet by mouth once daily. 1mg T, TH mg M,W,F, Sat, SUN or as directed fluticasone (FLONASE) 50 mcg/actuation nasal spray Use 2 Sprays in each nostril once daily. omeprazole (PRILOSEC) 20 mg capsule Take 1 capsule by mouth daily before breakfast. 1/2 hr before meal. Chromium Picolinate 200 mcg tab Take 1 tablet by mouth once daily. ferrous sulfate 325 mg (65 mg iron) tablet Take 325 mg by mouth. aspirin 325 mg tablet Take 325 mg by mouth once daily. calcium carbonate (CALCIUM 600 ORAL) Take 1,200 mg by mouth. COQ10, LIPOSOMAL UBIQUINOL, ORAL Take 200 mg by mouth. CRANBERRY ORAL Take 4,200 mg by mouth. cinnamon bark (CINNAMON ORAL) Take 4,200 mg by mouth. sodium chloride (AYR SALINE) 0.65 % nasal spray Use 2 Sprays in the nose as needed. POTASSIUM-99 ORAL Take by mouth. Lactobac no.41/Bifidobact no.7 (PROBIOTIC-10 ORAL) Take by mouth. propylene glycoL (SYSTANE BALANCE) 0.6 % drop 1 Drop. vitamin E mixed/tocotrienol (VITAMIN E COMPLEX ORAL) Take 180 mg by mouth. Zinc 50 mg tab Take 25 mg by mouth. FAMILY HISTORY Problem Relation Age of Onset Clotting Disorder Mother Stroke Father Liver Disease Sister cirrhosis Heart Attack Brother CHF Glaucoma No Family History Macular Degen No Family History Social History Tobacco Use Smoking status: Never Vaping Use Vaping Use: Never used Substance Use Topics Alcohol use: Yes Comment: occ Drug use: Never Review of Systems Constitutional: Positive for fever. Negative for chills. HENT: Positive for congestion. Negative for ear pain and sore throat. Respiratory: Positive for cough. Negative for shortness of breath. Cardiovascular: Negative for chest pain. Gastrointestinal: Negative for diarrhea and vomiting. Objective BP 126/84 Pulse 98 Temp (!) 38.4 C (101.1 F) Resp 18 Wt 69.4 kg (153 lb) SpO2 95% BMI 27.54 kg/m Physical Exam Vitals and nursing note reviewed. Constitutional: General: She is not in acute distress. Appearance: Normal appearance. She is not toxic-appearing. HENT: Right Ear: Tympanic membrane and ear canal normal. Left Ear: Tympanic membrane and ear canal normal. Nose: Nose normal. Mouth/Throat: Mouth: Mucous membranes are moist. Eyes: Conjunctiva/sclera: Conjunctivae normal. Cardiovascular: Rate and Rhythm: Normal rate and regular rhythm. Pulmonary: Effort: Pulmonary effort is normal. Breath sounds: Normal breath sounds. No wheezing, rhonchi or rales. Skin: General: Skin is warm and dry. Neurological: Mental Status: She is alert. Assessment and Plan ASSESSMENT/PLAN: 1. Acute cough - ICD9: 786.2, ICD10: R05.1 (primary diagnosis) -X 1 day. Lungs clear. Was exposed to pneumonia. No XR available at time of exam. Patient will return tomorrow for XR. - COVID & INFLUENZA A/B & RSV NAAT, ROUTINE - XR CHEST 2V FRONTAL/LAT 2. URI, acute - ICD9: 465.9, ICD10: J06.9 - Discussed viral etiology and rationale for treatment. - Symptomatic treatment with prn analgesia - Supportive care with fluids and rest - COVID & INFLUENZA A/B & RSV NAAT, ROUTINE -On warfarin and several other medications that interact with Paxlovid. Did discuss with patient she would be candidate for molnupiravir if COVID-positive. Diagnosis and treatment plan were discussed and questions were answered to the patient's satisfaction. Pt acknowledged understanding of concepts and follow up plan. Specific signs and symptoms that would indicate the need for higher level of care were discussed in detail warranting prompt ER evaluation. COLTON Abel documented in this encounterRegency Hospital [facility]08-08-2024 NoteHNO ID: [id number] Author: IWONA DONATO RN Service: ? Author Type: Registered Nurse Type: Progress Notes Filed: 12/08/2023 15:38 Note Text: pcp agrees with informationPar[facility]08-08-2024 History of Present illness Narrative* Iwona Donato RN - 12/08/2023 3:37 PM EDT pcp agrees with information * Iwona Donato RN - 12/08/2023 11:48 AM EDT patient had inr completed at [facility] patients inr is 2.0 (patients inr range is 2.0-3.0) patient is currently taking 1mg Wed and 2mg all other days patients last dose change was on 06/02/23 due to a low level of 1.6 (dose at that time was 1mg Tues,Thurs and 2mg all other days) patient has had no changes in medication and no missed doses and no change in diet Advised patient to continue on the same dose(s) and that they would only be contacted regarding dosage and follow up instructions after review with provider, if a change is needed. Written instructions given and patient verbalized understanding. Presently scheduled in 4 weeks (01/05/24) for follow up INR. documented in this encounterRegency Hospital [facility]08-08-2024 NotePar[facility]07-31-2024 History of Present illness Narrative* Cyn Romo RDMS - 11/30/2023 7:45 AM EDT Radiology Service Progress Note PATIENT NAME: Eri Pritchard DATE OF SERVICE: November 30, 2023 TIME: 8:18 AM PATIENT IDENTITY VERIFICATION COMPLETED USING TWO (2) IDENTIFIERS: Name and Date of confirmedby patient verbally. FALL SCREENING: Has the patient had 2 falls in the last year or 1 fall with injury or currently using an Ambulatory Assistive Device (Walker, Cane, Wheelchair, Crutches, etc.)? No PATIENT GENDER DATA: Female. status: : No status: NO. PATIENT RELEVANT IMPLANT DATA REVIEWED: Not Applicable PATIENT PRESENTS WITH AN IMPLANTABLE OR ATTACHED WAREHOUSE SELECTOR: No RADIOLOGY DEPARTMENT: Ultrasound PERIPHERAL IV DATA: Not applicable SIGNED BY: Cyn Romo RDMS November 30, 2023 8:18 AM documented in this encounterRegency Hospital [facility]07-31-2024 NotePar[facility]07-19-2024 Instructions* Patient Instructions* Joelle Barreto APRN.REPORT SPECIALIST - 11/18/2023 11:36 AM EDT [facility] [place] [id number] [facility] [id number] MEDITERRANEAN DIET The Mediterranean diet blends the basics of healthy eating with the traditional flavors and cookingmethods of the Mediterranean. Interest in the Mediterranean diet began in the 1960's with the observation that coronary heart disease caused fewer deaths in the Mediterranean countries, such as [place] and [place], than in the [place] and northern [place]. Subsequent studies found that the Mediterranean diet is associated with reduced risk factors for cardiovascular disease. The Mediterranean diet is one of the healthy eating plans recommended by the Dietary Guidelines forAmerican to promote health and prevent chronic disease. A recent publication from the World Health Organization (WHO) identified the Mediterranean diet as an effective dietary strategy to prevent and control non- communicable diseases (NCDs), which are currently the leading cause of the premature globally (under 65 years of age). What is the Mediterranean diet? The Mediterranean diet is a way of eating that's based on the traditional cuisines of [place], [place], and other countries that border the Mediterranean Sea. Plant based foods, such as whole grains, vegetables, legumes, fruits, nuts, seeds, herbs and spices, are the foundation of the diet. [place] oil is the main source of added fat. Fish, seafood, dairy and poultry are included in moderation. Red meat and sweets are eaten only occasionally. Healthy fast instead of unhealthy ones [place] oil is the primary source of added fat in the Mediterranean diet. [place] oil provides mono unsaturated fat, which lowers total cholesterol and low- density lipoprotein ( or bad) cholesterol levels. Nuts and seeds also contain mono unsaturated fat. Fatty fish, such as mackerel, hammonds, sardines, albacore tuna and salmon, are rich in omega-3 fatty acids, a type of polyunsaturated fat that may reduce inflammation in the body. [place]-3 fatty acidsalso help decrease triglycerides, reduce blood clotting, and decrease the risk of heart failure andstroke. What about wine? Wine is often associated with the Mediterranean diet. It can be included but only in moderation. While alcohol may reduce the risk of heart disease, it has other health risks. People with liver disease should not consume alcohol, including wine. The Mediterranean Way Interested in trying the Mediterranean diet? Get started with these tips: Build meals around vegetables, beans and whole grains. Eat more fruits and vegetables. Aim for 7-10 servings a day of fruits and vegetables. Use fresh fruits for desserts. Opt for whole grains. Switch to whole grain bread, cereal, and pasta. Laie with other whole grains, such as crow and farro. Use Health fats. Try olive oil as a replacement for butter when cooking. Instead of putting butter or margarine on bread, try dipping it in flavored olive oil. Eat more seafood. Eat fish at least twice a week. Fresh or water packed tuna, salmon, trout, mackerel, and hammonds are healthy choices. Grilled fish tastes good and requires little clean up. Avoid deep fried fish. Reduce red meat. Substitute fish, poultry, or beans for meat. If you eat meat, make sure it is leanand keep portions small. Enjoy some dairy. Eat low fat Khmer or plain yogurt and small amounts of a variety of cheeses. Spice it up. Herbs and spice boost flavor and lessen the need for salt. The Mediterranean diet is a delicious and health way to eat. Many people who switch to this style of eating say they will never eat any other way. What is fatty liver disease? Fatty liver disease (steatosis) is a common problem caused by the build-up of certain fats in the liver. The liver normally contains a small amount of fat. However, if more than 5 to 15% of the livers weight consists of fat, fatty liver disease is present. What are the symptoms of fatty liver disease? People with fatty liver disease usually do not have any symptoms. If symptoms appear, they may include: A feeling of fullness in the middle or upper right side of the abdomen Abdominal pain Loss of appetite or weight loss Nausea Weakness Jaundice (yellowing of the skin and the whites of the eyes) Swelling of the abdomen and legs (edema) Mental confusion Extreme fatigue or tiredness What are the forms of fatty liver disease? There are two main forms of fatty liver disease. Non-alcoholic fatty liver--Fat build-up in the liver that is not linked to drinking alcohol. Alcoholic fatty liver--Fat build-up in the liver due to drinking large amounts of alcohol (two or more drinks per day.) What are the effects of fatty liver disease? In most cases, fatty liver disease does not cause any serious problems or prevent the liver from functioning normally. However, it may lead to liver damage under certain circumstances. Non-alcoholic steatohepatitis (RAMIREZ) is the most severe condition resulting from non-alcoholic fatty liver disease. RAMIREZ is more likely to occur in people who are overweight or obese, or who have diabetes. Fatty liver affects up to 25% of people in the [place] and is one of the country s main causes of cirrhosis of the liver. What are the risk factors for fatty liver disease? There are many risk factors for non-alcoholic fatty liver disease. A risk factor makes a person more likely to have a condition or disease. Some risk factors for fatty liver are: Being obese or overweight Having type 2 diabetes or insulin resistance Having metabolic syndrome--A combination of excess body weight, insulin resistance, high blood pressure, and high triglyceride levels. Some genetic metabolic conditions or prescription medications (amiodarone, diltiazem, steroids, andtamoxifen) also may increase the risk of non-alcoholic fatty liver disease. If you are taking one of these medications, your doctor might substitute another drug for it. How is fatty liver disease diagnosed? Blood tests may be done to check for elevated levels of certain liver enzymes. An ultrasound or computed tomography (CT) scan of the liver may be done to check for abnormalities and confirm the diagnosis of fatty liver disease. A liver biopsy (tissue sample) may be needed if your doctor suspects that you have severe liver disease. How is fatty liver disease treated? There is no single treatment for fatty liver disease. In most cases, no treatment is required. If it is needed, treatment will depend on the underlying cause. Your doctor may recommend that you go on a diet, since losing weight can reduce the amount of fat in the liver. Even losing 1 or 2 pounds per week might help. Your doctor or cloth bleaching range back tender can give youadvice on healthy weight loss techniques. Drugs that regulate blood sugar levels can be helpful in treating fatty liver in diabetic patients.Also, vitamin E has been shown to be effective in some cases and is currently being studied. How can fatty liver disease be prevented? Maintain a healthy weight. If you are overweight or obese, lose weight gradually. Eat a balanced diet. Avoid foods that are high in cholesterol. Vegetables, fruits, and low-fat foods may help lower cholesterol and triglyceride levels. Exercise regularly. Limit your alcohol consumption or do not drink. Take medications as prescribed. Your doctor may prescribe statins to lower triglyceride levels or anti-diabetic drugs if you are diabetic or insulin-resistant. documented in this encounterReg[facility]24 Note[facility] History of Present illness Narrative* Joelle Barreto APRN.CNP - 11/18/2023 10:58 AM EDT CHIEF COMPLAINT: Patient presents with: Gas: Had 2 episodes of chest tightness This consult was requested by Anastasiia Colón APRN.CNS for an opinion regarding abnormal liver enzymes. My final recommendations will be communicated to the requesting health care provider by way of the shared medical record for internal providers or letter via the [employer] for external providers. HPI: Eri Pritchard is a 83 year old female with hx of DMII, HTN, HLD, factor V leiden mutation, TIA, PVD who presents for transaminitis. A couple weeks ago, she had 2 episodes of chest tightness and had cardiac work up that was negative (including stress test). She has a hx of GERD, but denies any issues with this. Blood work recently showed mild ALT elevation of 46. Over the past 2 years, this is the first abnormal liver test. She denies any hx of liver disease. Her sister of cirrhosis from fatty liver. No recent liver imaging. (-) abdominal pain, bowel changes, n/v, melena, hematochezia. No alcohol use. No hx of hepatitis DMII is poorly controlled - hgba1c 9.1 Record Review: [facility] / Outside records reviewed. PAST MEDICAL HISTORY Diagnosis Date Atrial fibrillation (HCC) Diabetes mellitus (HCC) Factor V deficiency (HCC) GERD (gastroesophageal reflux disease) TIA (transient ischemic attack) 2001 PAST SURGICAL HISTORY Procedure Laterality Date CAROTID ENDARTERECTOMY Right COLON SURGERY HX HYSTERECTOMY HX REMV CATARACT EXTRACAP,INSERT LENS bilateral 2017 Allergies: ALLERGIES Allergen Reactions Accupril [Quinapril] Unknown Calan [Verapamil] Unknown Lotensin [Benazepri* Unknown Sulfa (Sulfonamide * Unknown Medications: glimepiride (AMARYL) 2 mg tablet Take 1 tablet by mouth daily with breakfast. Check blood sugars daily, if remaining above 200 consistently in 2 to 4 weeks will increase the dose tiZANidine (ZANAFLEX) 4 mg tablet Take 1 tablet by mouth at bedtime as needed (muscle spasms). Or muscle spasms amLODIPine (NORVASC) 2.5 mg tablet Take 1 tablet by mouth once daily. For blood pressure metoprolol tartrate, short acting, (LOPRESSOR) 50 mg tablet Take 1.5 tablets by mouth two times a day. cholecalciferol (VITAMIN D-3) 5,000 unit tab Take 5,000 Units by mouth. Take 1-2 tablet daily Magnesium 200 mg tab Take by mouth. melatonin 10 mg cap Take by mouth. Ascorbic Acid (VITAMIN C) 1,000 mg tablet Take 1,000 mg by mouth once daily. PHENYLephrine-guaiFENesin (MUCUS RELIEF PE) 10-400 mg tab Take by mouth. PHENYLephrine (SUDAFED PE) 10 mg tablet Take 10 mg by mouth. oxybutynin ER (DITROPAN XL) 10 mg 24 hr tablet Take 1 tablet by mouth once daily. losartan-hydroCHLOROthiazide (HYZAAR) 100-25 mg per tablet Take 1 tablet by mouth once daily. simvastatin (ZOCOR) 80 mg tablet Take 1 tablet by mouth daily at bedtime. warfarin (COUMADIN) 2 mg tablet Take 1 tablet by mouth once daily. 1mg T, TH mg M,W,F, Sat, SUN or as directed fluticasone (FLONASE) 50 mcg/actuation nasal spray Use 2 Sprays in each nostril once daily. omeprazole (PRILOSEC) 20 mg capsule Take 1 capsule by mouth daily before breakfast. 1/2 hr before meal. Chromium Picolinate 200 mcg tab Take 1 tablet by mouth once daily. ferrous sulfate 325 mg (65 mg iron) tablet Take 325 mg by mouth. aspirin 325 mg tablet Take 325 mg by mouth once daily. calcium carbonate (CALCIUM 600 ORAL) Take 1,200 mg by mouth. COQ10, LIPOSOMAL UBIQUINOL, ORAL Take 200 mg by mouth. CRANBERRY ORAL Take 4,200 mg by mouth. cinnamon bark (CINNAMON ORAL) Take 4,200 mg by mouth. sodium chloride (AYR SALINE) 0.65 % nasal spray Use 2 Sprays in the nose as needed. POTASSIUM-99 ORAL Take by mouth. Lactobac no.41/Bifidobact no.7 (PROBIOTIC-10 ORAL) Take by mouth. propylene glycoL (SYSTANE BALANCE) 0.6 % drop 1 Drop. vitamin E mixed/tocotrienol (VITAMIN E COMPLEX ORAL) Take 180 mg by mouth. Zinc 50 mg tab Take 25 mg by mouth. Cholecalciferol, Vitamin D3, 25 mcg (1,000 unit) cap Take 1,000 Units by mouth once daily. (Patientnot taking: Reported on 06/07/2023) FAMILY HISTORY Problem Relation Age of Onset Clotting Disorder Mother Stroke Father Liver Disease Sister cirrhosis Heart Attack Brother CHF Glaucoma No Family History Macular Degen No Family History Employer And Job Title: None on file Years Of Education Completed: Not specified Marital Status: Social History Tobacco Use Smoking status: Never Vaping Use Vaping Use: Never used Substance Use Topics Alcohol use: Yes Comment: occ Drug use: Never Review of Systems: Review of Systems HENT: Positive for hearing loss. Respiratory: Positive for cough. Cardiovascular: Positive for leg swelling. Gastrointestinal: Gas All other systems reviewed and are negative. Are you taking any blood thinners? Yes, Warfarin Physical Examination: Pulse 102 Ht 5' 2.5 (1.59m) Wt 149 lb (67.6kg) BMI 26.80 kg/(m^2). Physical Exam Vitals and nursing note reviewed. Constitutional: Appearance: Normal appearance. She is normal weight. HENT: Head: Normocephalic and atraumatic. Mouth/Throat: Mouth: Mucous membranes are moist. Eyes: General: No scleral icterus. Cardiovascular: Rate and Rhythm: Normal rate and regular rhythm. Heart sounds: Normal heart sounds. Pulmonary: Breath sounds: Normal breath sounds. Abdominal: General: Abdomen is flat. Bowel sounds are normal. Palpations: Abdomen is soft. Tenderness: There is no abdominal tenderness. There is no guarding or rebound. Skin: General: Skin is warm and dry. Neurological: Mental Status: She is alert and oriented to person, place, and time. Psychiatric: Mood and Affect: Mood normal. Behavior: Behavior normal. Thought Content: Thought content normal. Judgment: Judgment normal. ASSESSMENT: (R74.01) Elevated alanine aminotransferase (ALT) level (primary encounter diagnosis) 1. Elevated alanine aminotransferase (ALT) level - She has many risk factors for fatty liver, which is a probable cause of her ALT elevation. Will check liver US, and if fatty liver, then fibroscan. - recheck HFP and check hepatitis panel - we discussed fatty liver, course of disease and current treatment (controlling RF's, weight loss,healthy diet, medication if F2/3). She was given a print out about fatty liver and mediterranean diet - US ABD RIGHT UPPER QUADRANT; Future - HEPATIC FUNCTION PNL; Future - HEP REMOTE PANEL BL; Future Follow up in office TBD based on testing Joelle Barreto APRN.CNP November 18, 2023 11:57 AM documented in this encounterReg[facility]24 Progress note* Result Encounter Note - Anastasiia Colón APRN.CNS - 11/15/2023 8:50 AM EDT Normal stress test results [facility]07-16-2024 Miscellaneous Notes* Result Encounter Note - Anastasiia Colón APRN.CNS - 11/15/2023 8:50 AM EDT Normal stress test results documented in this encounterReg[facility]07-15-2024 Instructions* Patient Instructions* Anastasiia Colón APRN.CNS - 11/14/2023 10:09 AM EDT Stop taking metformin Start taking glimepiride. Check your blood sugar daily. If your blood sugars remaining above 200 after 2 to 4 weeks let us know so we can increase the doseof glimepiride. documented in this encounterReg[facility]07-15-2024 History of Present illness Narrative* Anastasiia Colón APRN.CNS - 11/14/2023 9:40 AM EDT SUBJECTIVE: Pneumococcal Vaccine: 65+(1 of 2 - PCV) Never done RSV Vaccine(1 - 1-dose 60+ series) Never done Behavioral Health Screening Never done Covid-19 Vaccine(2022- season) due on 06/07/2023 Diabetic Foot Exam due on 08/10/2023 Shingrix Vaccine(2 of 2) due on 12/12/2023 HPI Eri Pritchard is a 83 year old female. PMH significant for ACTIVE PROBLEM LIST Hyperlipidemia Primary Hypertension Carotid Atherosclerosis Subclinical Hypothyroidism Fatty Liver Heart Murmur Type 2 Diabetes Mellitus With Diabetic Polyneuropathy, Without Long-Term Current Use of Insulin (Hcc) Factor V Deficiency (Hcc) Bilateral Carotid Artery Stenosis Elevated Hdl Factor 5 Leiden Mutation, Heterozygous (Hcc) Peripheral Vascular Disease, Unspecified (Hcc) Presents today for routine follow-up visit. HPI excerpted from previous visit: Presents today for emergency department follow-up visit. [facility]. She presented to emergency department with complaint of an episode of lower chest pain that radiated to her back that was sharp and stabbing and woke her from sleep atapproximately 4 AM on the day of arrival. Reports this lasted about 30 minutes. She reports that her checked her pulse and it felt rapid. She noted that symptoms resolved after about 30 minutes. She presented to the ER for further evaluation. Asymptomatic on arrival to the ER. Exam was unremarkable. CBC unremarkable. INR 1.9. Sodium decreased at 131. AST and ALT were elevated. Lipase elevated. TSH within normal limits. Nodular density noted in left upper lobe on chest x-ray. Gallbladderultrasound completed showed enlarged fatty infiltrated liver nonvisualization of the tail of pancreas due to bowel gas. No evidence for gallstones or acute cholecystitis. Noted concern for pancreaticdisease CT recommended for further assessment. EKG showed atrial fibrillation with a rate of 84 bpm. Troponins were negative. No evidence of ACS or TX. She was referred to follow-up with GI and PCP. She was advised clear liquid diet for 48 hours. Impression was abdominal pain and epigastric transaminitis and atrial fibrillation. Referred to Dr. Giron. Appointment made:no Referred to general surgery Dr. Garcia, appointment made:no Today notes that she had chest pain at 1 time with associated nausea since seen in the ER. No further. No vomiting. No reported palpitations edema shortness of breath presyncope or syncope. Does noteintermittent decreased blood pressure at home since seen in the ER. Blood pressure has been as low as 90s over 50s with heart rate in the 1 teens at times. She reports prior history of PAF. She reports no abdominal pain no nausea or vomiting other than what is noted above, no constipation, does have loose stools with metformin. States she ran out and stopped taking for several days prior to her ER visit. Has resumed. Blood sugars at home and 3 50-400 range when checking. No new events: Looks like and then she is hypertension She reports sister had history of cirrhosis, nondrinker. Factor V Leiden deficiency, taking warfarin. Bleeding difficulties: none reported. Last INR checked November 09, next appointment is December 07 in the Coumadin clinic. INR (POCT) Date Value Ref Range Status 10/13/2023 2.4 (H) 0.8 - 1.2 Final Today notes taking 4 metformin a day. Home fasting blood sugar readings have been 164-200 at this level of treatment. She however notes diarrhea 2-4 bowel movements a day. She would like to try an alternate medication. DIABETES MELLITUS: Without report excessive thirst or increased frequency of urination, chest pain or dyspnea , numbness, tingling or pain in extremities, new or unusual visual symptoms, low sugar/hypoglycemic reactions, weight loss/gain, lightheadedness/dizziness, and bowel changes/loose stools. Patient's last HgA1C was Hemoglobin A1C (%) Date Value 09/15/2023 9.1 08/18/2023 8.1 ) HTN: Home blood pressure readings have been 107-155/56-85. Without report of headache, chest pain, palpitations, dyspnea, peripheral edema, orthopnea, fatigue, and PND. She has a stress test later today and held all of her medications until later today. Hyperlipidemia. Ms. Pritchard reports doing well on current therapy Her most recent lipid panels are: Cholesterol, Total (mg/dL) Date Value 09/15/2023 183 08/18/2023 154 HDL Cholesterol (mg/dL) Date Value 09/15/2023 25 08/18/2023 23 LDL Cholesterol (no units) Date Value 09/15/2023 Comment: Unable to calculate due to increased Triglycerides. See LDL-Chol, Direct. 08/18/2023 Comment: Unable to calculate due to increased Triglycerides. See LDL-Chol, Direct. LDL Cholesterol, Nonfasting (no units) Date Value 07/01/2022 Comment: Unable to calculate due to increased Triglycerides. A Direct LDL Cholesterol measurement will not be performed. If clinically indicated, a fasting Basic Lipid Panel (LIPB) may be ordered. Triglyceride (mg/dL) Date Value 09/15/2023 527 08/18/2023 463 Hypothyroidism. TSH (mIU/L) Date Value 09/15/2023 2.580 07/01/2022 2.450 ) Review of Systems Constitutional: Negative. Respiratory: Negative. Cardiovascular: Negative. Endocrine: Negative. Objective BP 150/79 Pulse 97 Resp 16 Wt 66.2 kg (146 lb) BMI 26.28 kg/m Physical Exam Vitals and nursing note reviewed. Constitutional: Appearance: Normal appearance. HENT: Head: Normocephalic and atraumatic. Eyes: Conjunctiva/sclera: Conjunctivae normal. Neck: Thyroid: No thyromegaly. Vascular: Normal carotid pulses. No JVD. Cardiovascular: Rate and Rhythm: Normal rate. Rhythm irregular. Pulses: Carotid pulses are 2+ on the right side and 2+ on the left side. Radial pulses are 2+ on the right side and 2+ on the left side. Heart sounds: Normal heart sounds. Pulmonary: Effort: Pulmonary effort is normal. Breath sounds: Normal breath sounds. Abdominal: General: Bowel sounds are normal. Palpations: Abdomen is soft. Skin: General: Skin is warm and dry. Neurological: General: No focal deficit present. Mental Status: She is alert and oriented to person, place, and time. ALLERGIES Allergen Reactions Accupril [Quinapril] Unknown Calan [Verapamil] Unknown Lotensin [Benazepri* Unknown Sulfa (Sulfonamide * Unknown Medications tiZANidine (ZANAFLEX) 4 mg tablet Take 1 tablet by mouth at bedtime as needed (muscle spasms). Or muscle spasms amLODIPine (NORVASC) 2.5 mg tablet Take 1 tablet by mouth once daily. For blood pressure metFORMIN (GLUCOPHAGE) 500 mg tablet Take 1 tablet by mouth two times a day with meals. As directed metoprolol tartrate, short acting, (LOPRESSOR) 50 mg tablet Take 1.5 tablets by mouth two times a day. cholecalciferol (VITAMIN D-3) 5,000 unit tab Take 5,000 Units by mouth. Take 1-2 tablet daily Magnesium 200 mg tab Take by mouth. melatonin 10 mg cap Take by mouth. Ascorbic Acid (VITAMIN C) 1,000 mg tablet Take 1,000 mg by mouth once daily. PHENYLephrine-guaiFENesin (MUCUS RELIEF PE) 10-400 mg tab Take by mouth. PHENYLephrine (SUDAFED PE) 10 mg tablet Take 10 mg by mouth. oxybutynin ER (DITROPAN XL) 10 mg 24 hr tablet Take 1 tablet by mouth once daily. losartan-hydroCHLOROthiazide (HYZAAR) 100-25 mg per tablet Take 1 tablet by mouth once daily. simvastatin (ZOCOR) 80 mg tablet Take 1 tablet by mouth daily at bedtime. warfarin (COUMADIN) 2 mg tablet Take 1 tablet by mouth once daily. 1mg T, TH mg M,W,F, Sat, SUN or as directed fluticasone (FLONASE) 50 mcg/actuation nasal spray Use 2 Sprays in each nostril once daily. omeprazole (PRILOSEC) 20 mg capsule Take 1 capsule by mouth daily before breakfast. 1/2 hr before meal. Chromium Picolinate 200 mcg tab Take 1 tablet by mouth once daily. ferrous sulfate 325 mg (65 mg iron) tablet Take 325 mg by mouth. aspirin 325 mg tablet Take 325 mg by mouth once daily. calcium carbonate (CALCIUM 600 ORAL) Take 1,200 mg by mouth. COQ10, LIPOSOMAL UBIQUINOL, ORAL Take 200 mg by mouth. CRANBERRY ORAL Take 4,200 mg by mouth. cinnamon bark (CINNAMON ORAL) Take 4,200 mg by mouth. sodium chloride (AYR SALINE) 0.65 % nasal spray Use 2 Sprays in the nose as needed. POTASSIUM-99 ORAL Take by mouth. Lactobac no.41/Bifidobact no.7 (PROBIOTIC-10 ORAL) Take by mouth. propylene glycoL (SYSTANE BALANCE) 0.6 % drop 1 Drop. vitamin E mixed/tocotrienol (VITAMIN E COMPLEX ORAL) Take 180 mg by mouth. Zinc 50 mg tab Take 25 mg by mouth. Cholecalciferol, Vitamin D3, 25 mcg (1,000 unit) cap Take 1,000 Units by mouth once daily. (Patientnot taking: Reported on 06/07/2023) PAST MEDICAL HISTORY Diagnosis Date TIA (transient ischemic attack) 2001 PAST SURGICAL HISTORY Procedure Laterality Date CAROTID ENDARTERECTOMY Right COLON SURGERY HX HYSTERECTOMY HX REMV CATARACT EXTRACAP,INSERT LENS bilateral 2016 Social History Tobacco Use Smoking status: Never Substance Use Topics Alcohol use: Yes Comment: occ Drug use: Never FAMILY HISTORY Problem Relation Age of Onset Clotting Disorder Mother Stroke Father Liver Disease Sister cirrhosis Heart Attack Brother CHF Glaucoma No Family History Macular Degen No Family History Latest Ref Rng 08/18/2023 09/15/2023 10/10/2023 10/13/2023 10/17/2023 11/10/2023 WBC 3.70 - 11.00 k/uL 7.80 6.27 RBC 3.90 - 5.20 m/uL 4.09 4.37 Hemoglobin 11.5 - 15.5 g/dL 13.1 14.0 Hematocrit 36.0 - 46.0 % 39.0 42.4 MCV 80.0 - 100.0 fL 95.4 97.0 MCH 26.0 - 34.0 pg 32.0 32.0 MCHC 30.5 - 36.0 g/dL 33.6 33.0 RDW-CV 11.5 - 15.0 % 15.4 (H) 15.0 Platelet Count 150 - 400 k/uL 269 227 MPV 9.0 - 12.7 fL 11.5 13.6 (H) Neut% % 56.9 Abs Neut (ANC) 1.45 - 7.50 k/uL 3.57 Lymph% % 29.8 Abs Lymph 1.00 - 4.00 k/uL 1.87 Berks% % 10.7 Abs Berks <0.87 k/uL 0.67 Eosin% % 1.8 Abs Eosin <0.46 k/uL 0.11 Baso% % 0.6 Abs Baso <0.11 k/uL 0.04 Immature Gran % % 0.2 IMMATURE GRANS (ABS) <0.10 k/uL <0.03 NRBC /100 WBC 0.0 Absolute nRBC <0.01 k/uL <0.01 <0.01 DTYPE Auto Protein, Total 6.3 - 8.0 g/dL 7.3 7.3 7.2 Albumin 3.9 - 4.9 g/dL 4.2 4.1 4.1 Calcium 8.5 - 10.2 mg/dL 10.0 9.7 10.1 9.1 9.6 Bilirubin, Total 0.2 - 1.3 mg/dL 0.5 0.5 0.6 Alkaline Phosphatase 34 - 123 U/L 52 52 94 AST 13 - 35 U/L 20 26 19 ALT 7 - 38 U/L 21 33 46 (H) Glucose 74 - 99 mg/dL 232 (H) 304 (H) 534 (H) 328 (H) 256 (H) BUN 7 - 21 mg/dL 18 17 28 (H) 18 14 Creatinine 0.58 - 0.96 mg/dL 0.76 0.76 1.08 (H) 0.79 0.79 Sodium 136 - 144 mmol/L 139 135 (L) 126 (L) 134 (L) 138 Potassium 3.7 - 5.1 mmol/L 4.0 4.2 4.0 3.9 3.8 Chloride 98 - 107 mmol/L 99 97 89 (L) 99 100 CO2 22 - 30 mmol/L 27 25 21 (L) 21 (L) 26 Anion Gap 8 - 15 mmol/L 13 13 16 (H) 14 12 eGFR >=60 mL/min/1.73m 78 78 51 (L) 74 74 Cholesterol, Total <200 mg/dL 154 183 Triglyceride <150 mg/dL 463 (H) 527 (H) HDL Cholesterol >39 mg/dL 23 (L) 25 (L) Non HDL Cholesterol <130 mg/dL 131 (H) 158 (H) Fasting Time hrs 13 14 VLDL Cholesterol <30 mg/dL -- -- VLDL Cholesterol 89 (H) 114 (H) TC:HDL Ratio <5.10 6.70 (H) 7.32 (H) LDL Cholesterol -- -- LDL:HDL Ratio -- -- Creatinine, Ur Random (UCRR) 20.0 - 300.0 mg/dL 69.6 Albumin, Urine Random mg/L 54.8 Albumin/Creat Ratio <30 mg/g 79 (H) Hemoglobin A1C 4.3 - 5.6 % 8.1 (H) 9.1 (H) Estimated Average Glucose mg/dL 186 214 INR (POCT) 0.8 - 1.2 2.1 (H) 2.9 (H) 2.4 (H) Internal Quality Check Acceptable Acceptable Acceptable LDL Cholesterol, Direct <100 mg/dL 42 44 TSH 0.270 - 4.200 mIU/L 2.580 Bilirubin, Conjug <0.2 mg/dL <0.2 ASSESSMENT/PLAN: 1. Chest pain, unspecified type - ICD9: 786.50, ICD10: R07.9 (primary diagnosis) She has noted 1 recurrence of chest pain since ER visit. None since last seen. Blood pressure and heart rate have been well-controlled at home. Continue current treatments on change. Stress echocardiogram to further characterize chest pain, check for ischemia. Recommend establishing with cardiology 2. Encounter for immunization - ICD9: V03.89, ICD10: Z23 She has completed shingles and Tdap at pharmacy. 3. Type 2 diabetes mellitus with hyperglycemia, without long-term current use of insulin (HCC) - ICD9: 250.00, 790.29, ICD10: E11.65 Improved control on metformin 1 g twice daily however having loose stools 3-4 times per day. Discontinue metformin. Will switch to glimepiride 2 mg daily with breakfast. Check blood sugars daily. If needed can increase to a higher dose. 4. Lung nodules - ICD9: 793.19, ICD10: R91.8 CT chest was completed and stable findings 5. Transaminitis - ICD9: 790.4, ICD10: R74.01 Has not followed up with gastroenterology Dr. Giron 6. Factor 5 Leiden mutation, heterozygous (HCC) - ICD9: 289.81, ICD10: D68.51 Therapeutic on current treatment no bleeding difficulties followed by Coumadin clinic. Glucose much improved. Sodium approaching normal level. Improved BUN/Cr. 3 - 6 mo follow up MD Anastasiia Wilson, [employer].CERTIFIED [employer]ICER Medical Decision Making: Problems: Moderate: 1+ chronic illnesses with change Risk: Moderate: Drug management Medical Decision Making Level: 4 - Moderate documented in this encounterReg[facility]-2024 Note[facility]24 NoteHNO ID: [id number] Author: IWONA DONATO RN Service: ? Author Type: Registered Nurse Type: Progress Notes Filed: 11/10/2023 15:48 Note Text: [facility] agrees [facility] information[facility]24 History of Present illness Narrative* Iwona Donato RN - 11/10/2023 3:48 PM EDT pcp agrees with information * Iwona Donato RN - 11/10/2023 9:17 AM EDT patient had inr completed at [facility] patients inr is 2.2 (patients inr range is 2.0-3.0) patient is currently taking 1mg Wed and 2mg all other days patients last dose change was on 06/02/23 due to a low level of 1.6 (dose at that time was 1mg , and 2mg all other days) patient has had no changes in medication and no missed doses and no change in diet Advised patient to continue on the same dose(s) and that they would only be contacted regarding dosage and follow up instructions after review with provider, if a change is needed. Written instructions given and patient verbalized understanding. Presently scheduled in 4 weeks (12/08/23) for follow up INR. documented [facility] NotePar[facility]07-08-2024 Miscellaneous Notes* Telephone Encounter - Elle Ramirez MA - 11/07/2023 11:08 AM EDT Patient notified, has INR on and will repeat lab at this time. Checking BS at home and will bring monitor to appointment. * Telephone Encounter - Elle Ramirez MA - 11/07/2023 11:05 AM EDT ----- Message from Anastasiia Colón APRN.CERTIFIED JUVENILE PROBATION OFFICER sent at 11/06/2023 8:44 AM EDT ----- Glucose much improved but remains uncontrolled. Sodium approaching normal level. Improved BUN/Cr. Has OV scheduled next week, repeat labs before visit if able to do so. Check to see if taking medications as ordered, home glucose levels documented in this encounterReg[facility]07-08-2024 Telephone encounter Note * Telephone Encounter - Elle Ramirez MA - 11/07/2023 11:08 AM EDT Patient notified, has INR on and will repeat lab at this time. Checking BS at home and will bring monitor to appointment. [facility]07-08-2024 Telephone encounter Note* Telephone Encounter - Elle Ramirez MA - 11/07/2023 11:05 AM EDT ----- Message from Anastasiia Colón APRN.CERTIFIED JUVENILE PROBATION OFFICER sent at 11/06/2023 8:44 AM EDT ----- Glucose much improved but remains uncontrolled. Sodium approaching normal level. Improved BUN/Cr. Has OV scheduled next week, repeat labs before visit if able to do so. Check to see if taking medications as ordered, home glucose levels [facility]07-05-2024 Telephone encounter Note* Telephone Encounter - María Zelaya - 11/04/2023 8:08 AM EDT Prescription Refill Information The patient has been identified by name and date of : Yes Caregiver verified no other encounters exist for this prescription request: Yes Caregiver confirmed with patient/requestor that no other refills are due, in the near future, with this provider at this time: Yes The last office visit in the department: 10-10-23 Does the patient have a future office visit with this provider/department: Yes Requested Prescriptions Pending Prescriptions Disp Refills tiZANidine (ZANAFLEX) 4 mg tablet 30 tablet 2 Sig: Take 1 tablet by mouth at bedtime as needed (muscle spasms). Or muscle spasms María Petty November 04, 2023 8:09 AM [facility]07-05-2024 Miscellaneous Notes* Telephone Encounter - María Zelaya - 11/04/2023 8:08 AM EDT Prescription Refill Information The patient has been identified by name and date of : Yes Caregiver verified no other encounters exist for this prescription request: Yes Caregiver confirmed with patient/requestor that no other refills are due, in the near future, with this provider at this time: Yes The last office visit in the department: 10-10-23 Does the patient have a future office visit with this provider/department: Yes Requested Prescriptions Pending Prescriptions Disp Refills tiZANidine (ZANAFLEX) 4 mg tablet 30 tablet 2 Sig: Take 1 tablet by mouth at bedtime as needed (muscle spasms). Or muscle spasms María Petty November 04, 2023 8:09 AM documented in this encounterReg[facility]06-24-2024 History of Present illness Narrative* Reef Teena Don RT(Ana Maria) - 10/24/2023 3:40 PM EDT Radiology Service Progress Note PATIENT NAME: Eri Pritchard DATE OF SERVICE: October 24, 2023 TIME: 3:53 PM PATIENT IDENTITY VERIFICATION COMPLETED USING TWO (2) IDENTIFIERS: Name and Date of confirmedby patient verbally. FALL SCREENING: Has the patient had 2 falls in the last year or 1 fall with injury or currently using an Ambulatory Assistive Device (Walker, Cane, Wheelchair, Crutches, etc.)? No PATIENT GENDER DATA: Female. status: : No status: NO. PATIENT RELEVANT IMPLANT DATA REVIEWED: Not Applicable PATIENT PRESENTS WITH AN IMPLANTABLE OR ATTACHED WAREHOUSE SELECTOR: No RADIOLOGY DEPARTMENT: CT; Exam(s) Completed: Chest PERIPHERAL IV DATA: Not applicable SIGNED BY: RT Csa(R) October 24, 2023 3:53 PM documented in this encounterRegency [facility]06-24-2024 NotePar[facility]06-20-2024 Telephone encounter Note* Telephone Encounter - Anastasiia Colón APRN.CNS - 10/20/2023 4:42 PM EDT Note the improvement. [facility]06-20-2024 Miscellaneous Notes* Telephone Encounter - Anastasiia Colón APRN.CNS - 10/20/2023 4:42 PM EDT Note the improvement. * Telephone Encounter - Bekah Vivas LPN - 10/20/2023 4:33 PM EDT Patient states she is taking her medication as directed. Blood sugars have been below 250. Yesterday it was 224, today it was 236. None below 200 but she said she is trying. * Telephone Encounter - Anastasiia Colón APRN.CNS - 10/20/2023 4:17 PM EDT Please check with her to see if she is still taking her diabetes medicines as ordered and what her blood sugar is doing * Telephone Encounter - Iwona Donato RN - 10/13/2023 9:27 AM EDT patient was in today to have her inr checked and reported that BS was now down to 297 this morning non-fasting with the changes * Telephone Encounter - Bekah Vivas LPN - 10/11/2023 4:33 PM EDT Patient notified of providers message and verbalized understanding. Patient states she just took her BS and it is 350 and she is starting to feel better. * Telephone Encounter - Anastasiia Colón APRN.CNS - 10/11/2023 4:27 PM EDT Verify that she took two metformin this morning. If not recommend taking now. If she did take 2 metformin this morning she can take 2 metformin with dinner as well. Endorse ER visit for any severe concerning symptoms. * Telephone Encounter - Emily Bustos LPN - 10/11/2023 1:40 PM EDT Pt calling to let you know her blood sugar now is 442. Pt had a crispy cracker with low calorie cheese and home made chicken soup. She had waited an hour. Pt was shaky and after eating the above thisleft. Pt is drinking water. Pt denies fever, frequent urination, difficulty breathing, dizziness, weakness or vomiting. Please advise pt. Emily Bustos LPN documented in this encounterRegency [facility]06-20-2024 Telephone encounter Note * Telephone Encounter - Bekah Vivas LPN - 10/20/2023 4:33 PM EDT Patient states she is taking her medication as directed. Blood sugars have been below 250. Yesterday it was 224, today it was 236. None below 200 but she said she is trying. [facility]-20-[facility] Telephone encounter Note* Telephone Encounter - Anastasiia Colón APRN.CERTIFIED JUVENILE PROBATION OFFICER - 10/20/2023 4:17 PM EDT Please check with her to see if she is still taking her diabetes medicines as ordered and what her blood sugar is doing [facility]06-13-2024 NoteHNO ID: [id number] Author: KAILEE KOCH MD Service: ? Author Type: Physician Type: Progress Notes Filed: 10/13/2023 09:32 Note Text: INR therapeutic. Continue current coumadin dosage and follow up in 4 weeks. [facility]06[facility] History of Present illness Narrative* Kailee Koch MD - 10/13/2023 9:32 AM EDT INR therapeutic. Continue current coumadin dosage and follow up in 4 weeks. * Iwona Donato RN - 10/13/2023 9:24 AM EDT patient had inr completed at [facility] patients inr is 2.4 (patients inr range is 2.0-3.0) patient is currently taking 1mg Wed and 2mg all other days patients last dose change was on 06/02/23 due to a low level of 1.6 (dose at that time was 1mg and 2mg all other days) patient has had no changes in medication and no missed doses and no change in diet Advised patient to continue on the same dose(s) and that they would only be contacted regarding dosage and follow up instructions after review with provider, if a change is needed. Written instructions given and patient verbalized understanding. Presently scheduled in 4 weeks (11/10/23) for follow up INR. documented in this encounterReg[facility]06-13-2024 Telephone encounter Note * Telephone Encounter - Iwona Donato RN - 10/13/2023 9:27 AM EDT patient was in today to have her inr checked and reported that BS was now down to 297 this morning non-fasting with the changes [facility]06-13-2024 NotePar[facility]06-12-2024 Note [facility] History of Present illness Narrative* Suresh Varela RN - 10/12/2023 1:49 PM EDT DIABETES CARE AND EDUCATION VISIT Location: [place] Type of visit: In person individual PATIENT'S MAIN CONCERN TODAY: New diagnosis Support person present for education today: spouse Cognitive ability: Alert and oriented Motivation to learn: Interested Learning barriers identified by educator: none Method of instruction: written, verbal, and demonstration DIABETES FINDINGS: BS 534 on 10/09, reported fasting 330 mg/dL this morning Monitoring: Reviewed monitoring and reporting of sugars, she has been in the upper 200s and 300s when checking. Encouraged to follow up with the physician if having multiple days of fasting sugars >250 mg/dL or repeated sugars > 300 mg/dL Meal Planning: reviewed basic carb containing foods Medications: pt states they are currently taking Metformin as ordered - encouraged to continue to reach out to physician for additional support and possibly the need for additional medication to manage Problem Solving:when to contact PCP for dosage adjustment reviewed Physical Activity: benefits of gently increasing her physical activity to help manage sugars HANDOUTS: Healthy You: Survival Skills and Healthy You: Planning Healthy Meals LEARNING RESPONSE: Healthy eating: Demonstrated understanding/competency today or at previous visit Being active: Demonstrated understanding/competency today or at previous visit Taking medications: Demonstrated understanding/competency today or at previous visit POSSIBLE FUTURE TOPICS: 1. Review additional medications as needed if increased DIABETES CARE AND EDUCATION PLAN: Education completed and annual diabetes education follow-up visit recommended Time Spent (Minutes): 45 This visit note will be communicated to the healthcare provider via access to shared medical record. SIGNATURE: Suresh Varela RN PATIENT NAME: Eri Pritchard DATE: October 12, 2023 TIME: 1:49 PM documented in this encounterReg[facility]06-11-2024 Telephone encounter Note * Telephone Encounter - Bekah Vivas LPN - 10/11/2023 4:33 PM EDT Patient notified of providers message and verbalized understanding. Patient states she just took her BS and it is 350 and she is starting to feel better. [facility]06-11-2024 Telephone encounter Note* Telephone Encounter - Anastasiia Colón APRN.AMBROSIO - 10/11/2023 4:27 PM EDT Verify that she took two metformin this morning. If not recommend taking now. If she did take 2 metformin this morning she can take 2 metformin with dinner as well. Endorse ER visit for any severe concerning symptoms. [facility]06-11-2024 Telephone encounter Note* Telephone Encounter - Emily Bustos LPN - 10/11/2023 1:40 PM EDT Pt calling to let you know her blood sugar now is 442. Pt had a crispy cracker with low calorie cheese and home made chicken soup. She had waited an hour. Pt was shaky and after eating the above thisleft. Pt is drinking water. Pt denies fever, frequent urination, difficulty breathing, dizziness, weakness or vomiting. Please advise pt. Emily Bustos LPN [facility]06-11-2024 Telephone encounter Note* Telephone Encounter - Krys Townsend RN - 10/11/2023 9:42 AM EDT Pt called and is notified of providers results and instructions. Pt voices understanding. Put DM booklets in Medical Records for Pt to turkey picker today. Sent Pts chart to scheduling to call back and schedule with DM education. Krys Townsend RN [facility]06-11-2024 Miscellaneous Notes* Telephone Encounter - Krys Townsend RN - 10/11/2023 9:42 AM EDT Pt called and is notified of providers results and instructions. Pt voices understanding. Put DM booklets in Medical Records for Pt to turkey picker today. Sent Pts chart to scheduling to call back and schedule with DM education. Krys Townsend RN * Telephone Encounter - Anastasiia Colón APRN.CERTIFIED JUVENILE PROBATION OFFICER - 10/11/2023 9:15 AM EDT Recommend she take 2 metformin this morning, 1 this evening. Then consistently take metformin twice daily as ordered. Repeat labs this . Call back in with BS results with these measures by Tuesday. She can call in the meantime if needed for blood sugars greater than 250. Limit fluid intake (free water) to 64 oz/day. Can refer to DM education if she would like to go. Can mail DM booklets as well. * Telephone Encounter - Zoey Lorenz LPN - 10/11/2023 8:25 AM EDT Pt calls this morning to follow up on phone call as advised by DOC. Pt reports at 7 am her blood sugars were 428. Pt reports she still is asymptomatic. Pt reports she has not had diabetic teaching and does not know what to eat or when to check blood sugars after eating. Pt reports she had been drinking juice but realized that was high in sugar so has stopped that. Zoey Lorenz LPN * Telephone Encounter - Kailee Koch MD - 10/11/2023 3:46 AM EDT Called and spoke with patient regarding urgent lab valute with high sugar value of over 500, high anion gap, low sodium, and low CO2. Rechecked her glucose which was 411. She states she is asymptomatic at this time. Denies symptoms of DKA including abdominal pain, nausea, vomiting, confusion, increased thirst, increased urination. Notes that she did not take her mtefomin last night. Advised to take metformin now, recheck sugars in the morning and call PCP office in the morning with updated sugar readings and for med adjustment. Red flags for ER evaluation reviewed with patient in detail. documented in this encounterReg[facility]06-11-2024 Telephone encounter Note * Telephone Encounter - Anastasiia Colón APRN.AMBROSIO - 10/11/2023 9:15 AM EDT Recommend she take 2 metformin this morning, 1 this evening. Then consistently take metformin twice daily as ordered. Repeat labs this . Call back in with BS results with these measures by Tuesday. She can call in the meantime if needed for blood sugars greater than 250. Limit fluid intake (free water) to 64 oz/day. Can refer to DM education if she would like to go. Can mail DM booklets as well. [facility]06-11-20[facility] Telephone encounter Note* Telephone Encounter - Zoey Lorenz LPN - 10/11/2023 8:25 AM EDT Pt calls this morning to follow up on phone call as advised by DOC. Pt reports at 7 am her blood sugars were 428. Pt reports she still is asymptomatic. Pt reports she has not had diabetic teaching and does not know what to eat or when to check blood sugars after eating. Pt reports she had been drinking juice but realized that was high in sugar so has stopped that. Zoey Lorenz LPN [facility]06-11-2024 Telephone encounter Note* Telephone Encounter - Kailee Koch MD - 10/11/2023 3:46 AM EDT Called and spoke with patient regarding urgent lab valute with high sugar value of over 500, high anion gap, low sodium, and low CO2. Rechecked her glucose which was 411. She states she is asymptomatic at this time. Denies symptoms of DKA including abdominal pain, nausea, vomiting, confusion, increased thirst, increased urination. Notes that she did not take her mtefomin last night. Advised to take metformin now, recheck sugars in the morning and call PCP office in the morning with updated sugar readings and for med adjustment. Red flags for ER evaluation reviewed with patient in detail. [facility] Work Phone: [phone]) 859-948106-10-2024 Instructions* Patient Instructions* Anastasiia Colón APRN.CERTIFIED JUVENILE PROBATION OFFICER - 10/10/2023 12:31 PM EDT Stay on metformin to help control your blood sugars. Try to stick with a diabetic diet as well. Decrease your amlodipine from 7.5 mg daily to 2.5 mg daily I sent in a new prescription for the lower dose. This medication treats blood pressure. Try to take metoprolol tartrate twice daily if your blood pressure is 100/60 or greater and you arenot feeling dizzy or lightheaded. This medication can help control heart rate and rhythm as well as blood pressure. Your liver enzymes were elevated in the emergency department. Recommend recheck today. Consider follow-up with automobile tester. I recommend a stress echocardiogram to further check regarding chest pain. I recommend a cardiology visit as well. documented in this encounterReg[facility]06-10-2024 NotePar[facility]06-10-2024 History of Present illness Narrative* Anastasiia Colón APRN.CNS - 10/10/2023 11:53 AM EDT SUBJECTIVE: Pneumococcal Vaccine: 65+(1 of 2 - PCV) Never done DTaP,Tdap,Td Vaccine(1 - Tdap) Never done Shingrix Vaccine(1 of 2) Never done RSV Vaccine(1 - 1-dose 60+ series) Never done Behavioral Health Screening Never done Covid-19 Vaccine( season) due on 06/07/2023 Diabetic Foot Exam due on 08/10/2023 HPI Eri Pritchard is a 82 year old female. PMH significant for ACTIVE PROBLEM LIST Hyperlipidemia Primary Hypertension Carotid Atherosclerosis Subclinical Hypothyroidism Fatty Liver Heart Murmur Type 2 Diabetes Mellitus With Diabetic Polyneuropathy, Without Long-Term Current Use of Insulin (Hcc) Factor V Deficiency (Hcc) Bilateral Carotid Artery Stenosis Elevated Hdl Factor 5 Leiden Mutation, Heterozygous (Hcc) Peripheral Vascular Disease, Unspecified (Hcc) Presents today for emergency department follow-up visit. [facility]. She presented to emergency department with complaint of an episode of lower chest pain that radiated to her back that was sharp and stabbing and woke her from sleep atapproximately 4 AM on the day of arrival. Reports this lasted about 30 minutes. She reports that her checked her pulse and it felt rapid. She noted that symptoms resolved after about 30 minutes. She presented to the ER for further evaluation. Asymptomatic on arrival to the ER. Exam was unremarkable. CBC unremarkable. INR 1.9. Sodium decreased at 131. AST and ALT were elevated. Lipase elevated. TSH within normal limits. Nodular density noted in left upper lobe on chest x-ray. Gallbladderultrasound completed showed enlarged fatty infiltrated liver nonvisualization of the tail of pancreas due to bowel gas. No evidence for gallstones or acute cholecystitis. Noted concern for pancreaticdisease CT recommended for further assessment. EKG showed atrial fibrillation with a rate of 84 bpm. Troponins were negative. No evidence of ACS or TX. She was referred to follow-up with GI and PCP. She was advised clear liquid diet for 48 hours. Impression was abdominal pain and epigastric transaminitis and atrial fibrillation. Referred to Dr. Giron. Appointment made: Referred to general surgery Dr. Garcia, appointment made: Today notes that she had chest pain at 1 time with associated nausea since seen in the ER. No further. No vomiting. No reported palpitations edema shortness of breath presyncope or syncope. Does noteintermittent decreased blood pressure at home since seen in the ER. Blood pressure has been as low as 90s over 50s with heart rate in the 1 teens at times. She reports prior history of PAF. She reports no abdominal pain no nausea or vomiting other than what is noted above, no constipation, does have loose stools with metformin. States she ran out and stopped taking for several days prior to her ER visit. Has resumed. Blood sugars at home and 3 50-400 range when checking. She reports sister had history of cirrhosis, nondrinker. Factor V Leiden deficiency, taking warfarin. Bleeding difficulties: none reported. INR (POCT) Date Value Ref Range Status 09/15/2023 2.9 (H) 0.8 - 1.2 Final DIABETES MELLITUS: Without report excessive thirst or increased frequency of urination, chest pain or dyspnea , numbness, tingling or pain in extremities, new or unusual visual symptoms, low sugar/hypoglycemic reactions, weight loss/gain, lightheadedness/dizziness, and bowel changes/loose stools. Patient's last HgA1C was Hemoglobin A1C (%) Date Value 09/15/2023 9.1 08/18/2023 8.1 ) HTN: Without report of headache, chest pain, palpitations, dyspnea, peripheral edema, orthopnea, fatigue, and PND. Hyperlipidemia. Ms. Pritchard reports doing well on current therapy Her most recent lipid panels are: Cholesterol, Total (mg/dL) Date Value 09/15/2023 183 08/18/2023 154 HDL Cholesterol (mg/dL) Date Value 09/15/2023 25 08/18/2023 23 LDL Cholesterol (no units) Date Value 09/15/2023 Comment: Unable to calculate due to increased Triglycerides. See LDL-Chol, Direct. 08/18/2023 Comment: Unable to calculate due to increased Triglycerides. See LDL-Chol, Direct. LDL Cholesterol, Nonfasting (no units) Date Value 07/01/2022 Comment: Unable to calculate due to increased Triglycerides. A Direct LDL Cholesterol measurement will not be performed. If clinically indicated, a fasting Basic Lipid Panel (LIPB) may be ordered. Triglyceride (mg/dL) Date Value 09/15/2023 527 08/18/2023 463 Hypothyroidism. TSH (mIU/L) Date Value 09/15/2023 2.580 07/01/2022 2.450 ) Review of Systems Constitutional: Negative. Respiratory: Negative. Cardiovascular: Negative. Endocrine: Negative. Objective BP 106/71 Pulse 118 Resp 16 Wt 64 kg (141 lb) BMI 25.38 kg/m Physical Exam Vitals and nursing note reviewed. Constitutional: Appearance: Normal appearance. HENT: Head: Normocephalic and atraumatic. Eyes: Conjunctiva/sclera: Conjunctivae normal. Neck: Thyroid: No thyromegaly. Vascular: Normal carotid pulses. No JVD. Cardiovascular: Rate and Rhythm: Normal rate. Rhythm irregular. Pulses: Carotid pulses are 2+ on the right side and 2+ on the left side. Radial pulses are 2+ on the right side and 2+ on the left side. Heart sounds: Normal heart sounds. Pulmonary: Effort: Pulmonary effort is normal. Breath sounds: Normal breath sounds. Abdominal: General: Bowel sounds are normal. Palpations: Abdomen is soft. Skin: General: Skin is warm and dry. Neurological: General: No focal deficit present. Mental Status: She is alert and oriented to person, place, and time. ALLERGIES Allergen Reactions Accupril [Quinapril] Unknown Calan [Verapamil] Unknown Lotensin [Benazepri* Unknown Sulfa (Sulfonamide * Unknown Medications metFORMIN (GLUCOPHAGE) 500 mg tablet Take 1 tablet by mouth two times a day with meals. As directed metoprolol tartrate, short acting, (LOPRESSOR) 50 mg tablet Take 1.5 tablets by mouth two times a day. cholecalciferol (VITAMIN D-3) 5,000 unit tab Take 5,000 Units by mouth. Take 1-2 tablet daily Magnesium 200 mg tab Take by mouth. melatonin 10 mg cap Take by mouth. Ascorbic Acid (VITAMIN C) 1,000 mg tablet Take 1,000 mg by mouth once daily. PHENYLephrine-guaiFENesin (MUCUS RELIEF PE) 10-400 mg tab Take by mouth. PHENYLephrine (SUDAFED PE) 10 mg tablet Take 10 mg by mouth. oxybutynin ER (DITROPAN XL) 10 mg 24 hr tablet Take 1 tablet by mouth once daily. losartan-hydroCHLOROthiazide (HYZAAR) 100-25 mg per tablet Take 1 tablet by mouth once daily. simvastatin (ZOCOR) 80 mg tablet Take 1 tablet by mouth daily at bedtime. warfarin (COUMADIN) 2 mg tablet Take 1 tablet by mouth once daily. 1mg T, TH mg M,W,F, Sat, SUN or as directed amLODIPine (NORVASC) 5 mg tablet Take 1.5 tablets by mouth once daily. fluticasone (FLONASE) 50 mcg/actuation nasal spray Use 2 Sprays in each nostril once daily. omeprazole (PRILOSEC) 20 mg capsule Take 1 capsule by mouth daily before breakfast. 1/2 hr before meal. Chromium Picolinate 200 mcg tab Take 1 tablet by mouth once daily. ferrous sulfate 325 mg (65 mg iron) tablet Take 325 mg by mouth. aspirin 325 mg tablet Take 325 mg by mouth once daily. calcium carbonate (CALCIUM 600 ORAL) Take 1,200 mg by mouth. COQ10, LIPOSOMAL UBIQUINOL, ORAL Take 200 mg by mouth. CRANBERRY ORAL Take 4,200 mg by mouth. cinnamon bark (CINNAMON ORAL) Take 4,200 mg by mouth. sodium chloride (AYR SALINE) 0.65 % nasal spray Use 2 Sprays in the nose as needed. POTASSIUM-99 ORAL Take by mouth. Lactobac no.41/Bifidobact no.7 (PROBIOTIC-10 ORAL) Take by mouth. propylene glycoL (SYSTANE BALANCE) 0.6 % drop 1 Drop. vitamin E mixed/tocotrienol (VITAMIN E COMPLEX ORAL) Take 180 mg by mouth. Zinc 50 mg tab Take 25 mg by mouth. DULoxetine (CYMBALTA) 20 mg capsule Take 1 capsule by mouth once daily. (Patient not taking: Reported on 02/04/2023) Cholecalciferol, Vitamin D3, 25 mcg (1,000 unit) cap Take 1,000 Units by mouth once daily. (Patientnot taking: Reported on 06/07/2023) ezetimibe 10 mg tab 10 mg, simvastatin 10 mg tab 10 mg Take by mouth once daily. (Patient not taking: Reported on 02/04/2023) PAST MEDICAL HISTORY Diagnosis Date TIA (transient ischemic attack) 2001 PAST SURGICAL HISTORY Procedure Laterality Date CAROTID ENDARTERECTOMY Right COLON SURGERY HX HYSTERECTOMY HX REMV CATARACT EXTRACAP,INSERT LENS bilateral 2016 Social History Tobacco Use Smoking status: Never Substance Use Topics Alcohol use: Yes Comment: occ Drug use: Never FAMILY HISTORY Problem Relation Age of Onset Clotting Disorder Mother Stroke Father Liver Disease Sister cirrhosis Heart Attack Brother CHF Glaucoma No Family History Macular Degen No Family History Component Latest Ref Rng & Units 06/06/2023 Protein, Total 6.3 - 8.0 g/dL 7.3 Albumin 3.9 - 4.9 g/dL 4.1 Calcium 8.5 - 10.2 mg/dL 9.8 Bilirubin, Total 0.2 - 1.3 mg/dL 0.6 Alkaline Phosphatase 34 - 123 U/L 48 AST 13 - 35 U/L 22 ALT 7 - 38 U/L 23 Glucose 74 - 99 mg/dL 206 (H) BUN 7 - 21 mg/dL 19 Creatinine 0.58 - 0.96 mg/dL 0.83 Sodium 136 - 144 mmol/L 138 Potassium 3.7 - 5.1 mmol/L 3.6 (L) Chloride 97 - 105 mmol/L 100 CO2 22 - 30 mmol/L 25 Anion Gap 9 - 18 mmol/L 13 eGFR >=60 mL/min/1.73m 70 WBC 3.70 - 11.00 k/uL 5.96 RBC 3.90 - 5.20 m/uL 3.88 (L) Hemoglobin 11.5 - 15.5 g/dL 12.4 Hematocrit 36.0 - 46.0 % 38.3 MCV 80.0 - 100.0 fL 98.7 MCH 26.0 - 34.0 pg 32.0 MCHC 30.5 - 36.0 g/dL 32.4 RDW-CV 11.5 - 15.0 % 15.7 (H) Platelet Count 150 - 400 k/uL 291 MPV 9.0 - 12.7 fL 11.8 Absolute nRBC <0.01 k/uL <0.01 Cholesterol, Total <200 mg/dL 137 Triglyceride <150 mg/dL 337 (H) HDL Cholesterol >39 mg/dL 21 (L) Non HDL Cholesterol <130 mg/dL 116 Fasting Time hrs 12 VLDL Cholesterol <30 mg/dL 67 (H) TC:HDL Ratio <5.10 6.52 (H) LDL Cholesterol <100 mg/dL 49 LDL:HDL Ratio <2.54 2.33 Hemoglobin A1C 4.3 - 5.6 % 7.8 (H) Estimated Average Glucose mg/dL 177 ASSESSMENT/PLAN: 1. Chest pain, unspecified type - ICD9: 786.50, ICD10: R07.9 (primary diagnosis) She has noted 1 recurrence of chest pain since ER visit. Has had decreased blood pressures at home and increased heart rates. Recommend reducing dose of amlodipine and consistently taking her dose ofmetoprolol to tartrate Stress echocardiogram to further characterize chest pain, check for ischemia. Recommend establishing with cardiology - CONSULT TO CARDIOLOGY - STRESS ECHO TREADMILL - PERFLUTREN LIPID MICROSPHERES 1.1 MG/ML INJECTION IN NS 10 ML - SODIUM CHLORIDE 0.9 % (FLUSH) INJECTION SYRINGE 2. Lung nodules - ICD9: 793.19, ICD10: R91.8 1 nodule 1.7 cm noted on the left upper lobe on chest x-ray at [facility], CT chest for further evaluation and characterization - [facility] CHEST [facility] 3. Transaminitis - ICD9: 790.4, ICD10: R74.01 Elevations noted in ER, recheck to see if resolved. Gastroenterology visit if not resolved endorsed. - COMPREHENSIVE METABOLIC PANEL - HEPATIC FUNCTION PNL - CONSULT TO GASTROENTEROLOGY 4. Atrial fibrillation, unspecified type (HCC) - ICD9: 427.31, ICD10: I48.91 PAF, now exam consistent with atrial fibrillation. Heart rate increased blood pressure decreased. Will decrease dose of amlodipine so she can take metoprolol twice daily as ordered, has been holding due to decreased blood pressures at home. - CONSULT TO CARDIOLOGY 5. Type 2 diabetes mellitus with hyperglycemia, without long-term current use of insulin (HCC) - ICD9: 250.00, 790.29, ICD10: E11.65 Suboptimal control, ran out of medication and did not call for refill. Recently resumed. 6. Factor 5 Leiden mutation, heterozygous (HCC) - ICD9: 289.81, ICD10: D68.51 Continues on oral anticoagulation, therapeutic, no bleeding difficulties 7. Mid back pain on left side - ICD9: 724.5, ICD10: M54.9 Recommend warm moist heat when occurs, massage, nighttime muscle relaxer if needed Advised: Stay on metformin to help control your blood sugars. Try to stick with a diabetic diet as well. Decrease your amlodipine from 7.5 mg daily to 2.5 mg daily I sent in a new prescription for the lower dose. This medication treats blood pressure. Try to take metoprolol tartrate twice daily if your blood pressure is 100/60 or greater and you arenot feeling dizzy or lightheaded. This medication can help control heart rate and rhythm as well as blood pressure. Your liver enzymes were elevated in the emergency department. Recommend recheck today. Consider follow-up with automobile tester. I recommend a stress echocardiogram to further check regarding chest pain. I recommend a cardiology visit as well. 4-6 week follow up with me 3 - 6 mo follow up MD Anastasiia Wilson APRN.CERTIFIED [employer]ICER Medical Decision Making: Problems: Moderate: Acute illness with systemic symptoms Data: Unique test(s) ordered: 1 Risk: Moderate: Drug management Medical Decision Making Level: 4 - Moderate documented in this encounterReg[facility] Telephone encounter Note * Telephone Encounter - Kierra Santiago MD - 10/06/2023 9:00 AM EDT The following approved medication requests have been transmitted electronically. Requested Prescriptions Pending Prescriptions Disp Refills metFORMIN (GLUCOPHAGE) 500 mg tablet 180 tablet 1 Sig: Take 1 tablet by mouth two times a day with meals. As directed Kierra Santiago MD [facility]06-06-2024 Miscellaneous Notes* Telephone Encounter - Kierra Santiago MD - 10/06/2023 9:00 AM EDT The following approved medication requests have been transmitted electronically. Requested Prescriptions Pending Prescriptions Disp Refills metFORMIN (GLUCOPHAGE) 500 mg tablet 180 tablet 1 Sig: Take 1 tablet by mouth two times a day with meals. As directed Kierra Santiago MD * Telephone Encounter - María Zelaya - 10/05/2023 8:02 AM EDT Patient has been identified by name and date of : Yes, Provider Dr. Santiago Date 10-05-23 Time 8:03 am Patient phones for refill(s): Requested Prescriptions Pending Prescriptions Disp Refills metFORMIN (GLUCOPHAGE) 500 mg tablet 180 tablet 1 Sig: Take 1 tablet by mouth two times a day with meals. As directed Date of last office visit in primary care: 06/07/2023 Date of next office visit in primary care: 10/10/2023 Please advise. Thank you. María Petty. documented in this encounterReg[facility]06-05-2024 Telephone encounter Note * Telephone Encounter - María Zelaya - 10/05/2023 8:02 AM EDT Patient has been identified by name and date of : Yes, Provider Dr. Santiago Date 10-05-23 Time 8:03 am Patient phones for refill(s): Requested Prescriptions Pending Prescriptions Disp Refills metFORMIN (GLUCOPHAGE) 500 mg tablet 180 tablet 1 Sig: Take 1 tablet by mouth two times a day with meals. As directed Date of last office visit in primary care: 06/07/2023 Date of next office visit in primary care: 10/10/2023 Please advise. Thank you. María Petty. [facility]Par[facility] History of Present illness Narrative* Mary Kay Delgado DO - 10/04/2023 10:03 AM EDT Images from the original note were not included. [facility] [place] DEPARTMENT OF VASCULAR SURGERY OUTPATIENT VISIT DATE October 04, 2023 OUTPATIENT VISIT TYPE ESTABLISHED SERVICE DATE: 10/04/2023 SERVICE TIME: 10:03 AM PRIMARY CARE PHYSICIAN: Kierra Santiago MD HISTORY OF PRESENT ILLNESS: Ms. Pritchard is a 82 year old female who presents today for a vascular surgery follow-up visit for carotid duplex. She will get occasional weakness with lower blood pressures. She has appointment in upcoming week with PCP PAST MEDICAL HISTORY Diagnosis Date TIA (transient ischemic attack) 2001 PAST SURGICAL HISTORY Procedure Laterality Date CAROTID ENDARTERECTOMY Right COLON SURGERY HX HYSTERECTOMY HX REMV CATARACT EXTRACAP,INSERT LENS bilateral 2016 SOCIAL HISTORY Social History Tobacco Use Smoking status: Never Substance Use Topics Alcohol use: Yes Comment: occ Drug use: Never MEDICATIONS: metoprolol tartrate, short acting, (LOPRESSOR) 50 mg tablet Take 1.5 tablets by mouth two times a day. cholecalciferol (VITAMIN D-3) 5,000 unit tab Take 5,000 Units by mouth. Take 1-2 tablet daily Magnesium 200 mg tab Take by mouth. melatonin 10 mg cap Take by mouth. Ascorbic Acid (VITAMIN C) 1,000 mg tablet Take 1,000 mg by mouth once daily. PHENYLephrine-guaiFENesin (MUCUS RELIEF PE) 10-400 mg tab Take by mouth. PHENYLephrine (SUDAFED PE) 10 mg tablet Take 10 mg by mouth. oxybutynin ER (DITROPAN XL) 10 mg 24 hr tablet Take 1 tablet by mouth once daily. losartan-hydroCHLOROthiazide (HYZAAR) 100-25 mg per tablet Take 1 tablet by mouth once daily. simvastatin (ZOCOR) 80 mg tablet Take 1 tablet by mouth daily at bedtime. warfarin (COUMADIN) 2 mg tablet Take 1 tablet by mouth once daily. 1mg T, TH mg M,W,F, Sat, SUN or as directed amLODIPine (NORVASC) 5 mg tablet Take 1.5 tablets by mouth once daily. fluticasone (FLONASE) 50 mcg/actuation nasal spray Use 2 Sprays in each nostril once daily. omeprazole (PRILOSEC) 20 mg capsule Take 1 capsule by mouth daily before breakfast. 1/2 hr before meal. ferrous sulfate 325 mg (65 mg iron) tablet Take 325 mg by mouth. aspirin 325 mg tablet Take 325 mg by mouth once daily. calcium carbonate (CALCIUM 600 ORAL) Take 1,200 mg by mouth. COQ10, LIPOSOMAL UBIQUINOL, ORAL Take 200 mg by mouth. CRANBERRY ORAL Take 4,200 mg by mouth. cinnamon bark (CINNAMON ORAL) Take 4,200 mg by mouth. sodium chloride (AYR SALINE) 0.65 % nasal spray Use 2 Sprays in the nose as needed. POTASSIUM-99 ORAL Take by mouth. Lactobac no.41/Bifidobact no.7 (PROBIOTIC-10 ORAL) Take by mouth. propylene glycoL (SYSTANE BALANCE) 0.6 % drop 1 Drop. vitamin E mixed/tocotrienol (VITAMIN E COMPLEX ORAL) Take 180 mg by mouth. Zinc 50 mg tab Take 25 mg by mouth. metFORMIN (GLUCOPHAGE) 500 mg tablet Take 1 tablet by mouth two times a day with meals. As directed Chromium Picolinate 200 mcg tab Take 1 tablet by mouth once daily. DULoxetine (CYMBALTA) 20 mg capsule Take 1 capsule by mouth once daily. (Patient not taking: Reported on 02/04/2023) Cholecalciferol, Vitamin D3, 25 mcg (1,000 unit) cap Take 1,000 Units by mouth once daily. (Patientnot taking: Reported on 06/07/2023) ezetimibe 10 mg tab 10 mg, simvastatin 10 mg tab 10 mg Take by mouth once daily. (Patient not taking: Reported on 02/04/2023) ALLERGIES: ALLERGIES Allergen Reactions Accupril [Quinapril] Unknown Calan [Verapamil] Unknown Lotensin [Benazepri* Unknown Sulfa (Sulfonamide * Unknown PHYSICAL EXAM: BP 108/65 (BP Site: Left Arm, BP Position: Sitting, BP Cuff Size: Regular Adult) Pulse 79 SpO2 96% General: Alert and oriented Integumentary: Normal color, no rash, no lesions. HEENT: EOM, pupils equal, round and reactive. Cardiovascular: Pulse regular. Extremities: No deformity, no edema or tenderness, no joint swelling or clubbing. Neurological: Normal cognition and motor skills. Diagnostic tests reviewed for today's visit: Most recent labs Most recent imaging Carotid Duplex Irregular cardiac rhythm noted. Compared to prior study of 03/15/2023, No significant change noted. RIGHT SIDE Common carotid artery: Plaque visualized without evidence of hemodynamically significant stenosis. Endarterectomy patch at distal : 0.90 cm. Internal carotid artery: 40-59% stenosis. Vertebral artery: Patent and antegrade flow noted. Subclavian artery: Plaque visualized without evidence of hemodynamically significant stenosis. LEFT SIDE Common carotid artery: Plaque visualized without evidence of hemodynamically significant stenosis. Internal carotid artery: 60-79% stenosis. Findings may be underestimated due to calcified shadowing plaque at origin . ICA/CCA Ratio: 10.4. Vertebral artery: Patent and antegrade flow noted. IMPRESSION: Ms. Pritchard is a 82 year old female with carotid stenosis . PLAN and RECOMMENDATIONS: Follow up in 6 months Continue current medications. Continue blood pressure and cholesterol control SIGNATURE: Mary Kay Delgado DO PATIENT NAME: Eri Pritchard DATE: October 04, 2023 TIME: 10:03 AM documented in this encounterReg[facility]05-24-2024 NotePar[facility]05-24-2024 History of Present illness Narrative* Nataliia Rehman APRN.CNP - 09/23/2023 1:25 PM EDT Patient came and said that for this morning she had what felt like crushing chest pain shortness ofbreath and tingling in her right and left arms. Patient has a history of a TIA. Patient says she has heart attacks in her family. Patient thinks she may have had a previous heart attack in her words.At this time patient is being referred to the ER for full evaluation. Did ask if they would like meto call the squad multiple times they declined they want to take themselves. documented in this encounterRegency [facility]05-16-2024 NoteHNO ID: [id number] Author: ANASTASIIA COLÓN APRN.CNS Service: ? Author Type: Nurse Specialist Type: Progress Notes Filed: 09/15/2023 16:23 Note Text: Continue with Coumadin dose unchanged and check INR in 4 weeksPar[facility]05-16-2024 History of Present illness Narrative* Anastasiia Colón APRN.CNS - 09/15/2023 11:56 AM EDT Continue with Coumadin dose unchanged and check INR in 4 weeks * Iwona Donato RN - 09/15/2023 9:26 AM EDT patient had inr completed at [facility] patients inr is 2.9 (patients inr range is 2.0-3.0) patient is currently taking 1mg Wed and 2mg all other days patients last dose change was on 06/02/23 due to a low level of 1.6 (dose at that time was 1mg Tues,Thurs and 2mg all other days) patient has had no changes in medication and no missed doses and no change in diet Advised patient to continue on the same dose(s) and that they would only be contacted regarding dosage and follow up instructions after review with provider, if a change is needed. Written instructions given and patient verbalized understanding. Presently scheduled in 4 weeks (10/13/23) for follow up INR. documented in this encounterRegency [facility]05-16-2024 NotePar[facility]04-18-2024 History of Present illness Narrative* Greg Tyler MD - 08/18/2023 11:03 AM EDT agree * Iwona Donato RN - 08/18/2023 9:34 AM EDT patient had inr completed at [facility] patients inr is 2.1 (patients inr range is 2.0-3.0) patient is currently taking 1mg Wed and 2mg all other days patients last dose change was on 06/02/23 due to a low level of 1.6 (dose at that time was 1mg Tues,Thurs and 2mg all other days) patient has had no changes in medication and no missed doses and no change in diet Advised patient to continue on the same dose(s) and that they would only be contacted regarding dosage and follow up instructions after review with provider, if a change is needed. Written instructions given and patient verbalized understanding. Presently scheduled in 4 weeks (09/15/23) for follow up INR. documented in this encounterRegency [facility]03-21-2024 Miscellaneous Notes* Telephone Encounter - Anastasiia Colón APRN.CNS - 07/21/2023 4:25 PM EDT ok * Telephone Encounter - Iwona Donato RN - 07/21/2023 11:53 AM EDT patients orders for coumadin clinic inr's has at this time. new order has been pended for approval if possible so that patient can continue to get inr's completed thru the coumadin clinic. coumadin clinic nurse only needs called if order can not be approved. documented in this encounterRegency [facility]03-21-2024 History of Present illness Narrative* Anastasiia Colón APRN.CNS - 07/21/2023 2:02 PM EDT Continue with Coumadin dose unchanged and check INR in 4 weeks * Iwona Donato RN - 07/21/2023 11:52 AM EDT patient had inr completed at [facility] patients inr is 2.8 (patients inr range is 2.0-3.0) patient is currently taking 1mg Wed and 2mg all other days patients last dose change was on 06/02/23 due to a low level of 1.6 (dose at that time was 1mg Tues,Thurs and 2mg all other days) patient has had no changes in medication and no missed doses and no change in diet Advised patient to continue on the same dose(s) and that they would only be contacted regarding dosage and follow up instructions after review with provider, if a change is needed. Written instructions given and patient verbalized understanding. Presently scheduled in 4 weeks (08/18/23) for follow up INR. documented in this encounterRegency [facility]03-19-2024 Miscellaneous Notes* Telephone Encounter - Emily Bustos LPN - 07/19/2023 1:32 PM EDT Spoke with pt and information listed below given. Pt verbalizes understanding. Pt cutting 1 tablet in half to get the 1.5 tablets twice a day. Does not need to have the 25 mg sent. Emily Bustos LPN * Telephone Encounter - Elissa Browning MA - 07/18/2023 2:05 PM EDT LM for pt to contact office. Elissa Browning MA * Telephone Encounter - Emily Bustos LPN - 07/15/2023 3:34 PM EDT Left a message for pt to call the office and ask to speak to a nurse. Emily Bustos LPN * Telephone Encounter - Kierra Santiago MD - 07/14/2023 11:05 PM EDT Filled before but maybe new insurance will not cover quantity of 25 mg pills. See if patient able to cut 50 mg pills in half. If not, can try sending two RXs--one for 50 mg and once for 25 mg The following approved medication requests have been transmitted electronically. Requested Prescriptions Signed Prescriptions Disp Refills metoprolol tartrate, short acting, (LOPRESSOR) 50 mg tablet 270 tablet 3 Sig: Take 1.5 tablets by mouth two times a day. Authorizing Provider: KIERRA SANTIAGO MD * Telephone Encounter - Renetta Sharpe LPN - 07/14/2023 4:53 PM EDT Insurance is wanting this reviewed. Can the qty be less and higher dose? I'm sure that is the issue. Neither of these is an option? Can complete PA if not. * Telephone Encounter - Zahra Crocker - 07/14/2023 11:58 AM EDT Patient is calling to say that the pharmacy is saying a Prior Authorization needs to be done on patient's metoprolol so they can fill it. Insurance and pharmacy verified. documented in this encounterRegency [facility]02-29-2024 History of Present illness Narrative* Anastasiia Colón APRN.CNS - 06/30/2023 12:41 PM EST Continue with Coumadin dose unchanged and check INR in 3 weeks. * Iwona Donato RN - 06/30/2023 9:48 AM EST patient had inr completed at [facility] patients inr is 3.0 (patients inr range is 2.0-3.0) patient is currently taking 1mg Wed and 2mg all other days patients last dose change was on 06/02/23 due to a low level of 1.6 (dose at that time was 1mg Tues,Thurs and 2mg all other days) patient has had no changes in medication and no missed doses and no change in diet Advised patient to continue on the same dose(s) and that they would only be contacted regarding dosage and follow up instructions after review with provider, if a change is needed. Written instructions given and patient verbalized understanding. Presently scheduled in 3 weeks (07/21/23 - due to the c c is closed at that 4 week doron) for follow up INR. documented in this encounterRegency [facility]02-15-2024 History of Present illness Narrative* Anastasiia Colón APRN.CNS - 06/16/2023 3:52 PM EST Continue Coumadin dose unchanged and recheck INR in 2 weeks. * Iwona Donato RN - 06/16/2023 12:10 PM EST patient had inr completed at [facility] patients inr is 2.2 (patients inr range is 2.0-3.0) patient is currently taking 1mg Wed and 2mg all other days patients last dose change was on 06/02/23 due to a low level of 1.6 (dose at that time was 1mg Tues,Thurs and 2mg all other days) patient has had no changes in medication except for coumadin and no missed doses and no change in diet Advised patient to continue on the same dose(s) and that they would only be contacted regarding dosage and follow up instructions after review with provider, if a change is needed. Written instructions given and patient verbalized understanding. Presently scheduled in 2 weeks (06/30/23) for follow up INR since this is the first normal reading since dose change documented in this encounterRegency [facility]02-06-2024 History of Present illness Narrative* Anastasiia Colón APRN.CNS - 06/07/2023 9:00 AM EST SUBJECTIVE: RSV Vaccine(1 - 1-dose 60+ series) Never done Advance Directive Discussion due on 05/02/2023 Depression Assessment due on 05/02/2023 HPI Eriglenny Pritchard is a 82 year old female. PMH significant for ACTIVE PROBLEM LIST Hyperlipidemia Primary Hypertension Carotid Atherosclerosis Subclinical Hypothyroidism Fatty Liver Heart Murmur Type 2 Diabetes Mellitus With Diabetic Polyneuropathy, Without Long-Term Current Use of Insulin (Hcc) Factor V Deficiency (Hcc) Bilateral Carotid Artery Stenosis Elevated Hdl Factor 5 Leiden Mutation, Heterozygous (Hcc) Peripheral Vascular Disease, Unspecified (Hcc) HPI excerpted from previous visit: Presents today to establish care with Kierra Santiago MD. Notes recent move to area for family member. Previous PCP: oRel Maza DO, DO [address] [place] [address] Last seen: January 2022 Labwork:January 2022 ER/Hospitalization: none reported Outside records:carries med list, last labwork, last office note and INR/coumadin instructions to visit. Last lab work was completed in January 2022. Hemoglobin A1c was 8.1%. She was told to decrease carbohydrate intake. States has not treated diabetes mellitus previously. She reports current FBS 200. Lipid profile showed total cholesterol 151 triglycerides 413 HDL of 28 and LDL less than 30. Metabolic panel shows slight elevation of ALT and AST. Glucose 218. Metabolic panel otherwise unremarkable. CBC unremarkable. Has not treated DM per previous provider. She is chronic OAC for clotting disorder. She has been taking coumadin 2.5 mg QD for the last couple of months, has not had INR checked. No bleeding difficulties reported Notes prior AF with RVR, resolved, not a chronic problem. She reports history of PAPA, s/p R endarterectomy. She reports left TIA at that time. Taking ditropan for OAB. Since last here she was seen in urgent care for sinusitis May 02, 2023. Improved with treatment.Does note continued decreased hearing in the right ear and fullness. Not currently using Flonase. Has seen an ENT in the past recommended this. Would like a refill. Reports frequent BMs yesterday improved today. Notes this is related to stressful social situation. Reports not currently taking duloxetine or ezetimibe. Factor V Leiden deficiency, taking warfarin. Bleeding difficulties: none reported. INR (POCT) Date Value Ref Range Status 06/02/2023 1.6 (H) 0.8 - 1.2 Final DIABETES MELLITUS: Without report excessive thirst or increased frequency of urination, chest pain or dyspnea , numbness, tingling or pain in extremities, new or unusual visual symptoms, low sugar/hypoglycemic reactions, weight loss/gain, lightheadedness/dizziness, and bowel changes/loose stools. Patient's last HgA1C was Hemoglobin A1C (%) Date Value 06/06/2023 7.8 11/29/2022 7.3 ) HTN: Without report of headache, chest pain, palpitations, dyspnea, peripheral edema, orthopnea, fatigue, and PND. Last 3 Encounter BP Readings: Date: BP: 06/07/2023 126/74 05/02/2023 128/74 03/15/2023 134/78 Hyperlipidemia. Ms. Pritchard reports doing well on current therapy Her most recent lipid panels are: Cholesterol, Total (mg/dL) Date Value 06/06/2023 137 11/29/2022 152 HDL Cholesterol (mg/dL) Date Value 06/06/2023 21 11/29/2022 22 LDL Cholesterol Date Value 06/06/2023 49 mg/dL 11/29/2022 Comment: Unable to calculate due to increased Triglycerides. See LDL-Chol, Direct. LDL Cholesterol, Nonfasting (no units) Date Value 07/01/2022 Comment: Unable to calculate due to increased Triglycerides. A Direct LDL Cholesterol measurement will not be performed. If clinically indicated, a fasting Basic Lipid Panel (LIPB) may be ordered. Triglyceride (mg/dL) Date Value 06/06/2023 337 11/29/2022 409 Hypothyroidism. TSH (mIU/L) Date Value 07/01/2022 2.450 ) She notes facial lesion she would like removed consistent with actinic keratosis. She notes stressful home situation which caused her to move here involving 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. Review of Systems Constitutional: Negative. Respiratory: Negative. Cardiovascular: Negative. Endocrine: Negative. Objective BP 126/74 Pulse 97 Wt 68.9 kg (152 lb) SpO2 96% BMI 27.36 kg/m Physical Exam Vitals and nursing note reviewed. Constitutional: Appearance: Normal appearance. HENT: Head: Normocephalic and atraumatic. Eyes: Conjunctiva/sclera: Conjunctivae normal. Neck: Thyroid: No thyromegaly. Vascular: Normal carotid pulses. No JVD. Cardiovascular: Rate and Rhythm: Normal rate and regular rhythm. Pulses: Carotid pulses are 2+ on the right side and 2+ on the left side. Radial pulses are 2+ on the right side and 2+ on the left side. Heart sounds: Normal heart sounds. Pulmonary: Effort: Pulmonary effort is normal. Breath sounds: Normal breath sounds. Abdominal: General: Bowel sounds are normal. Palpations: Abdomen is soft. Skin: General: Skin is warm and dry. Comments: Facial lesion right eyebrow and left cheek consistent with actinic keratoses Neurological: General: No focal deficit present. Mental Status: She is alert and oriented to person, place, and time. ALLERGIES Allergen Reactions Accupril [Quinapril] Unknown Calan [Verapamil] Unknown Lotensin [Benazepri* Unknown Sulfa (Sulfonamide * Unknown Medications cholecalciferol (VITAMIN D-3) 5,000 unit tab Take 5,000 Units by mouth. Take 1-2 tablet daily Magnesium 200 mg tab Take by mouth. melatonin 10 mg cap Take by mouth. Ascorbic Acid (VITAMIN C) 1,000 mg tablet Take 1,000 mg by mouth once daily. PHENYLephrine-guaiFENesin (MUCUS RELIEF PE) 10-400 mg tab Take by mouth. PHENYLephrine (SUDAFED PE) 10 mg tablet Take 10 mg by mouth. metFORMIN (GLUCOPHAGE) 500 mg tablet Take 1 tablet by mouth two times a day with meals. As directed omeprazole (PRILOSEC) 20 mg capsule Take 1 capsule by mouth daily before breakfast. 1/2 hr before meal. metoprolol tartrate, short acting, (LOPRESSOR) 25 mg tablet Take 3 tablets by mouth twice daily. Chromium Picolinate 200 mcg tab Take 1 tablet by mouth once daily. ferrous sulfate 325 mg (65 mg iron) tablet Take 325 mg by mouth. aspirin 325 mg tablet Take 325 mg by mouth once daily. calcium carbonate (CALCIUM 600 ORAL) Take 1,200 mg by mouth. COQ10, LIPOSOMAL UBIQUINOL, ORAL Take 200 mg by mouth. CRANBERRY ORAL Take 4,200 mg by mouth. cinnamon bark (CINNAMON ORAL) Take 4,200 mg by mouth. sodium chloride (AYR SALINE) 0.65 % nasal spray Use 2 Sprays in the nose as needed. POTASSIUM-99 ORAL Take by mouth. Lactobac no.41/Bifidobact no.7 (PROBIOTIC-10 ORAL) Take by mouth. propylene glycoL (SYSTANE BALANCE) 0.6 % drop 1 Drop. vitamin E mixed/tocotrienol (VITAMIN E COMPLEX ORAL) Take 180 mg by mouth. Zinc 50 mg tab Take 25 mg by mouth. fluticasone (FLONASE) 50 mcg/actuation nasal spray Use 2 Sprays in each nostril once daily. oxybutynin ER (DITROPAN XL) 10 mg 24 hr tablet Take 1 tablet by mouth once daily. losartan-hydroCHLOROthiazide (HYZAAR) 100-25 mg per tablet Take 1 tablet by mouth once daily. simvastatin (ZOCOR) 80 mg tablet Take 1 tablet by mouth daily at bedtime. warfarin (COUMADIN) 2 mg tablet Take 1 tablet by mouth once daily. 1mg T, TH mg M,W,F, Sat, SUN or as directed amLODIPine (NORVASC) 5 mg tablet Take 1.5 tablets by mouth once daily. DULoxetine (CYMBALTA) 20 mg capsule Take 1 capsule by mouth once daily. (Patient not taking: Reported on 02/04/2023) Cholecalciferol, Vitamin D3, 25 mcg (1,000 unit) cap Take 1,000 Units by mouth once daily. (Patientnot taking: Reported on 06/07/2023) ezetimibe 10 mg tab 10 mg, simvastatin 10 mg tab 10 mg Take by mouth once daily. (Patient not taking: Reported on 02/04/2023) PAST MEDICAL HISTORY Diagnosis Date TIA (transient ischemic attack) 2001 PAST SURGICAL HISTORY Procedure Laterality Date CAROTID ENDARTERECTOMY Right COLON SURGERY HX HYSTERECTOMY HX REMV CATARACT EXTRACAP,INSERT LENS bilateral 2016 Social History Tobacco Use Smoking status: Never Substance Use Topics Alcohol use: Yes Comment: occ Drug use: Never FAMILY HISTORY Problem Relation Age of Onset Clotting Disorder Mother Stroke Father Liver Disease Sister cirrhosis Heart Attack Brother CHF Glaucoma No Family History Macular Degen No Family History Component Latest Ref Rng & Units 06/06/2023 Protein, Total 6.3 - 8.0 g/dL 7.3 Albumin 3.9 - 4.9 g/dL 4.1 Calcium 8.5 - 10.2 mg/dL 9.8 Bilirubin, Total 0.2 - 1.3 mg/dL 0.6 Alkaline Phosphatase 34 - 123 U/L 48 AST 13 - 35 U/L 22 ALT 7 - 38 U/L 23 Glucose 74 - 99 mg/dL 206 (H) BUN 7 - 21 mg/dL 19 Creatinine 0.58 - 0.96 mg/dL 0.83 Sodium 136 - 144 mmol/L 138 Potassium 3.7 - 5.1 mmol/L 3.6 (L) Chloride 97 - 105 mmol/L 100 CO2 22 - 30 mmol/L 25 Anion Gap 9 - 18 mmol/L 13 eGFR >=60 mL/min/1.73m 70 WBC 3.70 - 11.00 k/uL 5.96 RBC 3.90 - 5.20 m/uL 3.88 (L) Hemoglobin 11.5 - 15.5 g/dL 12.4 Hematocrit 36.0 - 46.0 % 38.3 MCV 80.0 - 100.0 fL 98.7 MCH 26.0 - 34.0 pg 32.0 MCHC 30.5 - 36.0 g/dL 32.4 RDW-CV 11.5 - 15.0 % 15.7 (H) Platelet Count 150 - 400 k/uL 291 MPV 9.0 - 12.7 fL 11.8 Absolute nRBC <0.01 k/uL <0.01 Cholesterol, Total <200 mg/dL 137 Triglyceride <150 mg/dL 337 (H) HDL Cholesterol >39 mg/dL 21 (L) Non HDL Cholesterol <130 mg/dL 116 Fasting Time hrs 12 VLDL Cholesterol <30 mg/dL 67 (H) TC:HDL Ratio <5.10 6.52 (H) LDL Cholesterol <100 mg/dL 49 LDL:HDL Ratio <2.54 2.33 Hemoglobin A1C 4.3 - 5.6 % 7.8 (H) Estimated Average Glucose mg/dL 177 ASSESSMENT/PLAN: 1. Type 2 diabetes mellitus with hyperglycemia, without long-term current use of insulin ([facility]) - ICD9: 250.00, 790.29, ICD10: E11.65 (primary diagnosis) 5. Type 2 diabetes mellitus with diabetic polyneuropathy, without long-term current use of insulin ([facility]) - ICD9: 250.60, 357.2, ICD10: E11.42 Controlled, continue with current treatment unchanged for now. Endorse adherence to diet, exercise as able. No change in medications at this time. 2. Peripheral vascular disease, unspecified ([facility]) - ICD9: 443.9, ICD10: I73.9 Completed ultrasound in March 2023 of carotids. 3. Factor V deficiency ([facility]) - ICD9: 286.3, ICD10: D68.2 4. Factor 5 Leiden mutation, heterozygous ([facility]) - ICD9: 289.81, ICD10: D68.51 Continue with Coumadin clinic, no change in Coumadin dose today. 6. Encounter for immunization - ICD9: V03.89, ICD10: Z23 - RSV PRINTED PHARMACY INSTRUCTIONS 7. Facial lesion - ICD9: 709.9, ICD10: L98.9 Exam consistent with actinic keratoses, recommend seeing dermatology for removal. - CONSULT TO DERMATOLOGY 8. Other acute sinusitis - ICD9: 461.8, ICD10: J01.80 She notes decreased hearing in her right ear since sinusitis. Recommend resuming Flonase. If not resolving recommend ENT visit for further evaluation and treatment as indicated. - FLUTICASONE PROPIONATE 50 MCG/ACTUATION NASAL SPRAY,SUSPENSION 4 mo follow up labs prior PCP 8 mo follow up JONNY Rios APRN.CNS Medical Decision Making: Problems: Moderate: 2+ stable chronic illnesses Data: Unique test(s) ordered: 3+ Risk: Moderate: Drug management Medical Decision Making Level: 4 - Moderate documented in this encounterReg[facility] History of Present illness Narrative* Bekah Vivas LPN - 06/02/2023 4:37 PM EST Patient notified of providers message and verbalized understanding. * Anastasiia Colón APRN.CNS - 06/02/2023 4:14 PM EST Coumadin 1 mg on Tuesday and 2 mg all other days and check INR in 2 weeks. * Iwona Donato RN - 06/02/2023 9:39 AM EST patient had inr completed at [facility] patients inr is 1.6 (patients inr range is 2.0-3.0) patient is currently taking 1mg Tues,Thurs and 2mg all other days patients last dose change was on 03/03/23 due to a high level of 3.1 (dose at that time was 1mg Thurs and 2mg all other days) patient has had no changes in medication and no missed doses and no change in diet recommend: patient change coumadin dose to 1mg Wed and 2mg all other days and recheck in 2 weeks patient has been scheduled for a 2 week follow up inr on 06/16/23 please review and advise on recommendation documented in this encounterReg[facility]01-01-2024 Miscellaneous Notes* Telephone Encounter - Alice Mcneill RN - 05/02/2023 7:56 AM EST Reason: Severe sinus pain, congestion Outcome: 4 hour recommendation. Care advice given. Patient will got to [facility] for evaluation. Reason for Disposition [1] Redness or swelling on the cheek, forehead or around the eye AND [2] no fever Answer Assessment - Initial Assessment Questions 1. LOCATION: sinus or tooth, when I cleaned my sinuses with saline, left side with yellow. Pain incheek and the tooth hurts. 2. ONSET: started 4 days ago 3. SEVERITY: How bad is the pain? (Scale 1-10; mild, moderate or severe) - SEVERE (8-10): excruciating pain and patient unable to do any normal activities Took Tylenol with some relief 4. RECURRENT SYMPTOM: has had symptoms like this before, but not severe 5. NASAL CONGESTION: left nostril blocked 7. FEVER: denies fever 8. OTHER SYMPTOMS: no appetite, weak, fatigue Protocols used: Sinus Pain or [id number] documented in this encounterRegency [facility]11-29-2023 History of Present illness Narrative* Iwona Donato RN - 03/30/2023 3:02 PM EST pcp agrees with information * Iwona Donato RN - 03/30/2023 9:20 AM EST patient had inr completed at [facility] patients inr is 2.0 (patients inr range is 2.0-3.0) patient is currently taking 1mg Tues,Thurs and 2mg all other days patients last dose change was on 03/03/23 due to a high level of 3.1 (dose at that time was 1mg Thurs and 2mg all other days) patient has had no changes in medication and no missed doses and no change in diet Advised patient to continue on the same dose(s) and that they would only be contacted regarding dosage and follow up instructions after review with provider, if a change is needed. Written instructions given and patient verbalized understanding. Presently scheduled in 1 month (05/05/23) for follow up INR. documented in this encounterRegency [facility]11-14-2023 History of Present illness Narrative* Lelo Sood, SHANNAN.REPORT SPECIALIST - 03/15/2023 10:22 AM EST Images from the original note were not included. [facility] V[facility] Thor[facility] [place] DEPARTMENT OF VASCULAR SURGERY OUTPATIENT VISIT DATE March 15, 2023 OUTPATIENT VISIT TYPE ESTABLISHED SERVICE DATE: 03/15/2023 SERVICE TIME: 10:22 AM PRIMARY CARE PHYSICIAN: Kierra Santiago MD HISTORY OF PRESENT ILLNESS: Ms. Pritchard is a 82 year old female with pmhx of Carotid Artery disease, TIA in 2001, who presents today for a vascular surgery for routine follow up for Carotid Artery Disease. Pt reports feeling well, denies new complaints lightheadedness, dizziness, no symptoms of TIA, amaurosis or stroke. Prior to today's apt she underwent carotid duplex demonstrating high PSV and moderately elevated EDV with very high ICA/CCA ratio. Denies new complaints. Reports medication compliance PAST MEDICAL HISTORY Diagnosis Date TIA (transient ischemic attack) 2001 PAST SURGICAL HISTORY Procedure Laterality Date CAROTID ENDARTERECTOMY Right COLON SURGERY HX HYSTERECTOMY HX REMV CATARACT EXTRACAP,INSERT LENS bilateral 2016 SOCIAL HISTORY Social History Tobacco Use Smoking status: Never Substance Use Topics Alcohol use: Yes Comment: occ Drug use: Never MEDICATIONS: metFORMIN (GLUCOPHAGE) 500 mg tablet Take 1 tablet by mouth two times a day with meals. As directed omeprazole (PRILOSEC) 20 mg capsule Take 1 capsule by mouth daily before breakfast. 1/2 hr before meal. metoprolol tartrate, short acting, (LOPRESSOR) 25 mg tablet Take 3 tablets by mouth twice daily. Chromium Picolinate 200 mcg tab Take 1 tablet by mouth once daily. DULoxetine (CYMBALTA) 20 mg capsule Take 1 capsule by mouth once daily. (Patient not taking: Reported on 02/04/2023) ferrous sulfate 325 mg (65 mg iron) tablet Take 325 mg by mouth. warfarin (COUMADIN) 2 mg tablet Take 1 tablet by mouth once daily. aspirin 325 mg tablet Take 325 mg by mouth once daily. calcium carbonate (CALCIUM 600 ORAL) Take 1,200 mg by mouth. COQ10, LIPOSOMAL UBIQUINOL, ORAL Take 200 mg by mouth. CRANBERRY ORAL Take 4,200 mg by mouth. cinnamon bark (CINNAMON ORAL) Take 4,200 mg by mouth. sodium chloride (AYR SALINE) 0.65 % nasal spray Use 2 Sprays in the nose as needed. amLODIPine (NORVASC) 5 mg tablet Take 1.5 tablets by mouth once daily. oxybutynin ER (DITROPAN XL) 10 mg 24 hr tablet Take 1 tablet by mouth once daily. losartan-hydroCHLOROthiazide (HYZAAR) 100-25 mg per tablet Take 1 tablet by mouth once daily. simvastatin (ZOCOR) 80 mg tablet Take 1 tablet by mouth daily at bedtime. POTASSIUM-99 ORAL Take by mouth. Lactobac no.41/Bifidobact no.7 (PROBIOTIC-10 ORAL) Take by mouth. propylene glycoL (SYSTANE BALANCE) 0.6 % drop 1 Drop. Cholecalciferol, Vitamin D3, 25 mcg (1,000 unit) cap Take 1,000 Units by mouth once daily. vitamin E mixed/tocotrienol (VITAMIN E COMPLEX ORAL) Take 180 mg by mouth. Zinc 50 mg tab Take 25 mg by mouth. fluticasone (FLONASE) 50 mcg/actuation nasal spray Use 2 Sprays in each nostril once daily. ezetimibe 10 mg tab 10 mg, simvastatin 10 mg tab 10 mg Take by mouth once daily. (Patient not taking: Reported on 02/04/2023) ALLERGIES: ALLERGIES Allergen Reactions Accupril [Quinapril] Unknown Calan [Verapamil] Unknown Lotensin [Benazepri* Unknown Sulfa (Sulfonamide * Unknown REVIEW OF SYSTEMS PAIN ASSESSMENT: Negative for pain, history of chronic pain, or current treatment for a chronic pain condition. GENERAL: No weight loss, malaise or fevers NECK: Negative for lumps, goiter, pain and significant neck swelling RESPIRATORY: Negative for cough, hemoptysis, wheezing, COPD, dyspnea or shortness of breath CARDIOVASCULAR: Negative for chest pain, leg swelling, hypertension, CHF or palpitations GI: No nausea, vomiting, or diarrhea PHYSICAL EXAM: BP 134/78 (BP Site: Right Arm, BP Position: Sitting, BP Cuff Size: Regular Adult) Pulse 74 [id number]% General: Alert and oriented x3 Integumentary: Normal color, no rash, no lesions. HEENT: EOM, pupils equal, round and reactive. Cardiovascular: Normal S1 & S2, no rubs, murmurs or gallops. No JVD., Pulse regular. Lungs: Normal breath sounds, no wheezes or crackles. Abdomen: Soft, non-tender, no rigidity. Extremities: No deformity, no edema or tenderness, no joint swelling or clubbing. Neurological: Normal cognition and motor skills. Vascular: Carotid Exam: Kwadwo. WNL Diagnostic tests reviewed for today's visit: Most recent imaging Carotid Artery Duplex Compared to prior study of 08/21/2022, No significant change from previous study LILI: 40-59%, Ratio 3.2 PSV:133 LICA: 60-79%, Ratio 11.4 PSV: 423 IMPRESSION: Ms. Pritchard is a 82 year old female with stable Carotid Artery Disease, TIA & Right internal carotid artery endarterectomy, in 2001, HDL, DM2, Factor 5 deficiency, HTN with heart murmur PLAN and RECOMMENDATIONS: - Continue with surveillance testing - Continue with antihypertensives, diabetic medications - Continue with Coumadin, AsA, - Follow up in 6 months with testing - May benefit from switch from Prilosec to pantoprazole due in increased risk for clotting SIGNATURE: Lelo Sood APRN.CNP PATIENT NAME: Eri Pritchard DATE: March 15, 2023 TIME: 10:22 AM documented in this encounterRegency [facility]10-26-2023 History of Present illness Narrative* Iwona Donato RN - 02/24/2023 4:16 PM EDT PATIENT NOTIFIED OF INFORMATION * Anastasiia Colón APRN.CNS - 02/24/2023 12:12 PM EDT Coumadin 1mg , 2mg all other days and recheck INR in 1 week * Iwona Donato RN - 02/24/2023 10:19 AM EDT patient had inr completed at [facility] patients inr is 3.1 (patients inr range is 2.0-3.0) patient is currently taking 2mg daily patients last dose change unknown patient has had no changes in medication and no missed doses and no change in diet recommend: patient change coumadin to 1mg and 2mg all other days and recheck inr in 1 week patient has been scheduled for a 1 week follow up inr on 03/03/23 please review and advise on recommendation documented in this encounterRegency [facility]10-17-2023 Miscellaneous Notes* Telephone Encounter - Romina Sawant LPN - 02/15/2023 5:26 PM EDT Forms completed, OV note signed by PCP and all faxed to the number on the forms. Attempted to update K[facility] at [facility], is past business hours for the day. Romina Sawant LPN * Telephone Encounter - Concetta Snyder LPN - 02/15/2023 3:38 PM EDT Krys from [facility] in [place] states she has diabetic shoes ready to give pt however she needs info from pcp. Krys states she has faxed a statement that needs signed & is also requesting pt's last OV notes from here. Pt states she faxed this form to the office 3X, on 01/26, 02/02 & 02/11/23, fax # was verified that she is faxing to. Please complete paperwork & fax back to her so shoes can be dispensed to pt. Krys can be reached at [phone]. Concetta Snyder LPN documented in this encounterRegency [facility]10-06-2023 History of Present illness Narrative* Kierra Santiago MD - 02/04/2023 5:18 PM EDT This note was created using SpeakWorksriter. Subjective Eri Pritchard is a 82 year old female. HISTORY Eri Pritchard is a 82 year old lady here to be formally established with me. Reviewed that COVID and was not bad since had COVID. Cymbalta 20 mg made her dizzy. Took for a week and not better so stopped med. On metformin ER 750 mg and tolerated fine till lately noting the quadriceps muscles hurt with standing up. Cutting pill in half since too big. Knew was not supposed to per pharmacist. Chronic cough--not sure why but has had since had COVID 2020. Winter prior had another illness and wondered if was whooping cough--was sick for 3 months with cough but no fever (not sure if was exposed at a daycare). Has spot on lung on Xray. 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 Worse now than used to be. Had not tried biotin. Taking Vitamin C Noted had skin lesions that PCP had cryotherapy on face (has lateral right eyebrow) Previously treated--tiny rough spot. Seeing Dr. Johnson about her neck (vascular). Had prior right carotid endarterectomy. Has appointmentNovember. 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 Blanca. Noted getting new orthotics on Tuesday. Has problems with high arches and neuropathy in toes. Patient noted family history fatty liver but she was not told she had fatty liver. Taking Peptobismol if has more reflux and cough. Stressful moving here. Juan C 9yo grandson. PAST MEDICAL HISTORY Diagnosis Date TIA (transient ischemic attack) 2001 Current Outpatient Medications Medication Sig metoprolol tartrate, short acting, (LOPRESSOR) 25 mg tablet Take 3 tablets by mouth twice daily. Chromium Picolinate 200 mcg tab Take 1 tablet by mouth once daily. metFORMIN ER (GLUCOPHAGE XR) 750 mg 24 hr tablet Take 1 tablet by mouth daily with breakfast. ferrous sulfate 325 mg (65 mg iron) tablet Take 325 mg by mouth. warfarin (COUMADIN) 2 mg tablet Take 1 tablet by mouth once daily. aspirin 325 mg tablet Take 325 mg by mouth once daily. calcium carbonate (CALCIUM 600 ORAL) Take 1,200 mg by mouth. COQ10, LIPOSOMAL UBIQUINOL, ORAL Take 200 mg by mouth. CRANBERRY ORAL Take 4,200 mg by mouth. cinnamon bark (CINNAMON ORAL) Take 4,200 mg by mouth. sodium chloride (AYR SALINE) 0.65 % nasal spray Use 2 Sprays in the nose as needed. amLODIPine (NORVASC) 5 mg tablet Take 1.5 tablets by mouth once daily. oxybutynin ER (DITROPAN XL) 10 mg 24 hr tablet Take 1 tablet by mouth once daily. losartan-hydroCHLOROthiazide (HYZAAR) 100-25 mg per tablet Take 1 tablet by mouth once daily. simvastatin (ZOCOR) 80 mg tablet Take 1 tablet by mouth daily at bedtime. POTASSIUM-99 ORAL Take by mouth. Lactobac no.41/Bifidobact no.7 (PROBIOTIC-10 ORAL) Take by mouth. propylene glycoL (SYSTANE BALANCE) 0.6 % drop 1 Drop. Cholecalciferol, Vitamin D3, 25 mcg (1,000 unit) cap Take 1,000 Units by mouth once daily. vitamin E mixed/tocotrienol (VITAMIN E COMPLEX ORAL) Take 180 mg by mouth. Zinc 50 mg tab Take 25 mg by mouth. fluticasone (FLONASE) 50 mcg/actuation nasal spray Use 2 Sprays in each nostril once daily. DULoxetine (CYMBALTA) 20 mg capsule Take 1 capsule by mouth once daily. (Patient not taking: Reported on 02/04/2023) ezetimibe 10 mg tab 10 mg, simvastatin 10 mg tab 10 mg Take by mouth once daily. (Patient not taking: Reported on 02/04/2023) No current facility-administered medications for this visit. ALLERGIES Allergen Reactions Accupril [Quinapril] Unknown Calan [Verapamil] Unknown Lotensin [Benazepri* Unknown Metformin Intolerance Sulfa (Sulfonamide * Unknown PAST SURGICAL HISTORY Procedure Laterality Date CAROTID ENDARTERECTOMY Right COLON SURGERY HX HYSTERECTOMY HX REMV CATARACT EXTRACAP,INSERT LENS bilateral 2016 FAMILY HISTORY Problem Relation Age of Onset Stroke Father Clotting Disorder Mother Liver Disease Sister Heart Attack Brother Glaucoma No Family History Macular Degen No Family History Social History Tobacco Use Smoking status: Never Substance Use Topics Alcohol use: Yes Comment: occ Drug use: Never Review of Systems Objective BP 134/70 Pulse (!) 52 Wt 69.9 kg (154 lb) SpO2 97% BMI 27.72 kg/m Physical Exam Constitutional: Appearance: Normal appearance. HENT: Head: Normocephalic. Eyes: Conjunctiva/sclera: Conjunctivae normal. Cardiovascular: Rate and Rhythm: Normal rate and regular rhythm. Heart sounds: Normal heart sounds. Pulmonary: Effort: Pulmonary effort is normal. Breath sounds: Normal breath sounds. Skin: General: Skin is warm and dry. Neurological: General: No focal deficit present. Mental Status: She is alert and oriented to person, place, and time. Psychiatric: Mood and Affect: Mood normal. Behavior: Behavior normal. Thought Content: Thought content normal. Judgment: Judgment normal. Component Latest Ref Rng & Units 07/01/2022 08/25/2022 08/25/2022 11/29/2022 11/29/2022 8:37 AM 8:37 AM 8:19 AM 8:19 AM WBC 3.70 - 11.00 k/uL 6.27 RBC 3.90 - 5.20 m/uL 4.02 Hemoglobin 11.5 - 15.5 g/dL 13.3 Hematocrit 36.0 - 46.0 % 39.7 MCV 80.0 - 100.0 fL 98.8 MCH 26.0 - 34.0 pg 33.1 MCHC 30.5 - 36.0 g/dL 33.5 RDW-CV 11.5 - 15.0 % 14.2 Platelet Count 150 - 400 k/uL 216 MPV 9.0 - 12.7 fL 10.7 Neut% % 57.7 Abs Neut (ANC) 1.45 - 7.50 k/uL 3.62 Lymph% % 28.7 Abs Lymph 1.00 - 4.00 k/uL 1.80 Berks% % 10.2 Abs Berks <0.87 k/uL 0.64 Eosin% % 2.1 Abs Eosin <0.46 k/uL 0.13 Baso% % 1.0 Abs Baso <0.11 k/uL 0.06 Immature Gran % % 0.3 IMMATURE GRANS (ABS) <0.10 k/uL <0.03 NRBC /100 WBC 0.5 Absolute nRBC <0.01 k/uL 0.03 (H) DTYPE Auto Protein, Total 6.3 - 8.0 g/dL 7.0 Albumin 3.9 - 4.9 g/dL 4.1 Calcium 8.5 - 10.2 mg/dL 9.7 Bilirubin, Total 0.2 - 1.3 mg/dL 0.5 Alkaline Phosphatase 34 - 123 U/L 41 AST 13 - 35 U/L 23 ALT 7 - 38 U/L 30 Glucose 74 - 99 mg/dL 192 (H) BUN 7 - 21 mg/dL 23 (H) Creatinine 0.58 - 0.96 mg/dL 1.08 (H) Sodium 136 - 144 mmol/L 137 Potassium 3.7 - 5.1 mmol/L 4.0 Chloride 97 - 105 mmol/L 100 CO2 22 - 30 mmol/L 27 Anion Gap 9 - 18 mmol/L 10 eGFR >=60 mL/min/1.73m 51 (L) Cholesterol, Total <200 mg/dL 161 152 Triglyceride <150 mg/dL 426 (H) 409 (H) HDL Cholesterol >39 mg/dL 23 (L) 22 (L) Non HDL Cholesterol <130 mg/dL 138 (H) 130 (H) Fasting Time hrs 15 14 VLDL Cholesterol 103 (H) 94 (H) TC:HDL Ratio <5.10 7.00 (H) 6.91 (H) LDL Cholesterol LDL:HDL Ratio Total Cholesterol, Nonfasting <200 mg/dL 142 Triglycerides, Nonfasting <150 mg/dL 459 (H) HDL Cholesterol, Nonfasting >39 mg/dL 21 (L) LDL Cholesterol, Nonfasting Non HDL Cholesterol, Nonfasting <130 mg/dL 121 VLDL Cholesterol, Nonfasting Total Chol/HDL Ratio, Nonfasting <5.10 mg/dL 6.76 (H) LDL/HDL Ratio, Nonfasting Hemoglobin A1C 4.3 - 5.6 % 7.6 (H) 7.3 (H) Estimated Average Glucose mg/dL 171 163 LDL Cholesterol, Direct <100 mg/dL 35 36 TSH 0.270 - 4.200 mIU/L 2.450 Assessment and Plan Encounter Diagnosis ICD-10-CM 1. Type 2 diabetes mellitus with diabetic polyneuropathy, without long-term current use of insulin (HCC) E11.42 HGB A1C CBC COMP METABOLIC PANEL Patient would benefit from Diabetic shoes. 2. Stenosis of carotid artery, unspecified laterality I65.29 3. History of carotid endarterectomy Z98.890 4. Primary hypertension I10 CBC COMP METABOLIC PANEL 5. 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 Encounter for long-term current use of medication Z79.899 LIPID PANEL BASIC HGB A1C CBC COMP METABOLIC PANEL 7. Mixed hyperlipidemia E78.2 LIPID PANEL BASIC 8. Chronic cough R05.3 9. Need for influenza vaccination Z23 INFLUENZA VACCINE, PRSV FREE, AGE 65+ YR, HIGH DOSE, QUADRIVALENT (FLUZONE HIGH-DOSE) 10. Encounter for immunization Z23 [employer] COVID-19 VACCINE (2022- [place]) AGE 12+ YR 82 year old lady here to be formally established with me. History and medications reviewed. Epic updated as needed Above issues addressed with patient. Patient involved in shared decision making for management of medical issues. Refills taken care of and meds adjusted as indicated after reviewed history, exam and labs. Health Maintenance reviewed. Updated record and/or ordered tests as recorded. Encouraged on efforts at healthy diet and regular exercise and adequate sleep. I spent a total of 51 minutes on the date of the service which included [id number] patient care, completing clinical documentation, performing a medically appropriate examination, counseling and educating the patient/family/caregiver, ordering medications, tests, or procedures, independently interpreting results (not separately reported), and communicating results to the patient/family/caregiver. Kierra Santiago MD documented in this encounterReg[facility] History of Present illness Narrative* Anastasiia Colón APRN.CNS - 01/27/2023 4:29 PM EDT Continue with Coumadin dose unchanged and check INR in 4 weeks * Iwona Donato RN - 01/27/2023 9:38 AM EDT patient had inr completed at [facility] patients inr is 2.3 (patients inr range is 2.0-3.0) patient is currently taking 2mg daily patients last dose change unknown patient has had no changes in medication and no uninstructed missed doses and no change in diet Advised patient to continue on the same dose(s) and that they would only be contacted regarding dosage and follow up instructions after review with provider, if a change is needed. Written instructions given and patient verbalized understanding. Presently scheduled in 4 weeks (02/24/23) for follow u p INR. documented in this encounterRegency [facility]09-21-2023 History of Present illness Narrative* Anastasiia Colón APRN.CNS - 01/20/2023 4:41 PM EDT hold coumadin today, go back to eating the usual [place] of greens and continue on the 2mg coumadin and recheck inr in 1 week * Iwona Donato RN - 01/20/2023 10:24 AM EDT patient had inr completed at [facility] patients inr is 3.5 (patients inr range is 2.0-3.0) patient is currently taking 2mg daily patients last dose change unknown patient has had no changes in medication and no missed doses and no change in diet FYI - patient has had a decrease in greens recommend: hold coumadin today, go back to eating the usual mount of greens and continue on the 2mgcoumadin and recheck inr in 1 week patient has been scheduled for a 1 week follow up inr on 01/27/23 please review and advise on recommendation documented in this encounterRegency [facility]09-06-2023 Miscellaneous Notes* Telephone Encounter - Zahra Negrete - 01/05/2023 10:23 AM EDT Patient has been identified by name and date of : Yes Last office visit in this department: 12/22/2022 RX INSTRUCTIONS: Patient aware RX will be sent to pharmacy. No need to notify patient. Patient phones requesting refills as follows: Requested Prescriptions Pending Prescriptions Disp Refills metoprolol tartrate, short acting, (LOPRESSOR) 25 mg tablet 270 tablet 3 Sig: Take 3 tablets by mouth twice daily. Please review and advise. Zahra Negrete documented in this encounterRegency Hospital [facility]08-23-2023 History of Present illness Narrative* Sheryl Reyes APRN.REPORT SPECIALIST - 12/22/2022 10:33 AM EDT SUBJECTIVE Eri Pritchard is a 82 year old female here today for a check up on her medical problems. Chief Complaint Patient presents with: F/U Diabetes 3 Month HPI Eri Pritchard is a 82 year old female established patient of Dr. Santiago. She presents today for her 3 month follow up. Last seen with our department 08/02 with AMBROSIO Rios. She also sees podiatry, eye provider, vascular, and coumadin clinic. She last had routine labs 11/29. Last INR 12/16, it was 2.[address] Johnson with vascular again in 3 months. Noticing feeling overwhelmed. Moved from [place]. She notes a cough. On going since she had COVID. Taking coricidin and helping. Not sleeping well, takes melatonin up to 20 mg a night but still wakes often. Has a lot of stress. Admits tosome anxiety and depression. Good support with her bible study. Eri Pritchard is a 82 year old female here today for a check up on her diabetes. Denies increased urinating, eating, and drinking. Most recent HbA1c tests were: Lab Results Component Value Date HBA1C 7.3 (H) 11/29/2022 HBA1C 7.6 (H) 07/01/2022 Her medications were reviewed today and her list is now up to date. Medications Current Outpatient Medications Medication Sig Chromium Picolinate 200 mcg tab Take 1 tablet by mouth once daily. metFORMIN ER (GLUCOPHAGE XR) 750 mg 24 hr tablet Take 1 tablet by mouth daily with breakfast. ferrous sulfate 325 mg (65 mg iron) tablet Take 325 mg by mouth. warfarin (COUMADIN) 2 mg tablet Take 1 tablet by mouth once daily. aspirin 325 mg tablet Take 325 mg by mouth once daily. calcium carbonate (CALCIUM 600 ORAL) Take 1,200 mg by mouth. COQ10, LIPOSOMAL UBIQUINOL, ORAL Take 200 mg by mouth. CRANBERRY ORAL Take 4,200 mg by mouth. cinnamon bark (CINNAMON ORAL) Take 4,200 mg by mouth. sodium chloride (AYR SALINE) 0.65 % nasal spray Use 2 Sprays in the nose as needed. amLODIPine (NORVASC) 5 mg tablet Take 1.5 tablets by mouth once daily. metoprolol tartrate, short acting, (LOPRESSOR) 25 mg tablet Take 3 tablets by mouth twice daily. oxybutynin ER (DITROPAN XL) 10 mg 24 hr tablet Take 1 tablet by mouth once daily. losartan-hydroCHLOROthiazide (HYZAAR) 100-25 mg per tablet Take 1 tablet by mouth once daily. simvastatin (ZOCOR) 80 mg tablet Take 1 tablet by mouth daily at bedtime. POTASSIUM-99 ORAL Take by mouth. Lactobac no.41/Bifidobact no.7 (PROBIOTIC-10 ORAL) Take by mouth. propylene glycoL (SYSTANE BALANCE) 0.6 % drop 1 Drop. Cholecalciferol, Vitamin D3, 25 mcg (1,000 unit) cap Take 1,000 Units by mouth once daily. vitamin E mixed/tocotrienol (VITAMIN E COMPLEX ORAL) Take 180 mg by mouth. Zinc 50 mg tab Take 25 mg by mouth. fluticasone (FLONASE) 50 mcg/actuation nasal spray Use 2 Sprays in each nostril once daily. ezetimibe 10 mg tab 10 mg, simvastatin 10 mg tab 10 mg Take by mouth once daily. DULoxetine (CYMBALTA) 20 mg capsule Take 1 capsule by mouth once daily. No current facility-administered medications for this visit. ALLERGIES Allergen Reactions Accupril [Quinapril] Unknown Calan [Verapamil] Unknown Lotensin [Benazepri* Unknown Metformin Intolerance Sulfa (Sulfonamide * Unknown ACTIVE PROBLEM LIST Hyperlipidemia - 07/01/2022 Primary Hypertension - 07/01/2022 Carotid Atherosclerosis - 07/01/2022 Subclinical Hypothyroidism - 07/01/2022 Fatty Liver - 07/01/2022 Heart Murmur - 07/01/2022 Type 2 Diabetes Mellitus With Hyperglycemia, Without Long-Term Current Use of Insulin (Hcc) - 07/01/2022 Factor V Deficiency (Hcc) - 07/01/2022 Social History Tobacco Use Smoking status: Never Substance Use Topics Alcohol use: Yes Comment: occ Drug use: Never Review of Systems Respiratory: Negative. Cardiovascular: Negative. Psychiatric/Behavioral: Positive for dysphoric mood and sleep disturbance. Negative for self-injuryand suicidal ideas. The patient is nervous/anxious. OBJECTIVE BP 124/60 Pulse 81 Wt 154 lb (69.9kg) SpO2 96% Physical Exam Vitals and nursing note reviewed. Constitutional: General: She is awake. She is not in acute distress. Appearance: Normal appearance. She is well-developed and well-groomed. She is not ill-appearing, toxic-appearing or diaphoretic. HENT: Head: Normocephalic. Right Ear: External ear normal. Left Ear: External ear normal. Nose: Nose normal. Eyes: General: Vision grossly intact. Conjunctiva/sclera: Conjunctivae normal. Pupils: Pupils are equal, round, and reactive to light. Neck: Vascular: No JVD. Trachea: Trachea normal. Cardiovascular: Rate and Rhythm: Normal rate and regular rhythm. Pulses: Normal pulses. Heart sounds: Normal heart sounds. No murmur heard. Pulmonary: Effort: Pulmonary effort is normal. No accessory muscle usage, prolonged expiration or respiratory distress. Breath sounds: Normal breath sounds. Musculoskeletal: Cervical back: Neck supple. Skin: General: Skin is warm and dry. Capillary Refill: Capillary refill takes less than 2 seconds. Neurological: General: No focal deficit present. Mental Status: She is alert and oriented to person, place, and time. Mental status is at baseline. Psychiatric: Attention and Perception: Attention and perception normal. Mood and Affect: Mood and affect normal. Speech: Speech normal. Behavior: Behavior normal. Behavior is cooperative. Thought Content: Thought content normal. Cognition and Memory: Cognition and memory normal. Judgment: Judgment normal. ASSESSMENT/PLAN: 1. Stress and adjustment reaction - ICD9: 309.89, ICD10: F43.29 (primary diagnosis) Lengthy discussion with patient, we will trial a low dose of Cymbalta and see if helpful for mood and for her neuropathy pain. - DULOXETINE 20 MG CAPSULE,DELAYED RELEASE 2. Sleep disturbance - ICD9: 780.50, ICD10: G47.9 Likely secondary to increased stress. 3. Type 2 diabetes mellitus with diabetic polyneuropathy, without long-term current use of insulin (HCC) - ICD9: 250.60, 357.2, ICD10: E11.42 - Improving control - Continue current medications - DULOXETINE 20 MG CAPSULE,DELAYED RELEASE Portions of this note have been entered by ancillary staff. I have reviewed and when necessary edited, so that they are an adequate record of my encounter with this patient Please note that parts of this document were created using voice recognition software and therefore may contain grammatical errors. Patient verbalizes understanding of instructions from today's visit and in agreement with treatmentplan. Questions answered. Agrees to call the office if questions, concerns of issues with acute symptoms not improving or if they worsen. See diagnoses and orders for additional plan(s). Allergies and medications were reviewed, list was updated, and refills given if needed. Past medical, surgical, social, and family history reviewed and updated as appropriate. Encouraged proper diet & exercise as well as compliance with taking medications. Age- appropriate health preventative measures were discussed. Return if symptoms worsen or fail to improve, for recheck on new medication.. Sheryl Reyes APRN-DAMASO documented in this encounterRegency [facility]08-22-2023 Miscellaneous Notes* Telephone Encounter - Kierra Santiago MD - 12/21/2022 1:31 PM EDT Did not see the free text for 1/2 tablet Deleted that The following approved medication requests have been transmitted electronically. Requested Prescriptions Signed Prescriptions Disp Refills metFORMIN ER (GLUCOPHAGE XR) 750 mg 24 hr tablet 90 tablet 1 Sig: Take 1 tablet by mouth daily with breakfast. Authorizing Provider: KIERRA SANTIAGO MD * Telephone Encounter - Kisha Irizarry RN - 12/21/2022 11:07 AM EDT [facility] pharmacist reports they received a metformin ER 750 mg yesterday. 2 problems with this Rx: 1) 2 sets of instructions: take 1 tab daily with breakfast, and take 1/2 tab daily each morning. 2) the pills are not scored and cannot be cut in half. Please advise pharmacist Patient scheduled 3 mth f/u tomorrow with Sheryl, as Anastasiia is not here tomorrow, but patient's has an appt tomorrow with pcp and wanted to come in at same time he does. * Telephone Encounter - Anastasiia Colón APRN.CNS - 12/21/2022 7:21 AM EDT I recommend scheduling the 3 month follow up this month if willing. * Telephone Encounter - Kierra Santiago MD - 12/20/2022 7:06 PM EDT Noted that was not rescheduled for 3 month follow up with Anastasiia after the November RX was cancelled. Will check with Anastasiia since I have not yet seen her--if needed close every 3 month follow up might need rescheduled with her before the appointment with me The following approved medication requests have been transmitted electronically. Requested Prescriptions Signed Prescriptions Disp Refills metFORMIN ER (GLUCOPHAGE XR) 750 mg 24 hr tablet 90 tablet 1 Sig: Take 1 tablet by mouth daily with breakfast. Take 1/2 tablet every morning Authorizing Provider: KIERRA SANTIAGO MD * Telephone Encounter - Daisy Howard LPN - 12/20/2022 4:22 PM EDT Last office visit: 08/02/22 Next appointment scheduled: 02/04/23 Last labs: 11/29/22 last HGBA1C * Telephone Encounter - Cherelle Aguillon - 12/20/2022 11:07 AM EDT Patient has been identified by name and date of : Yes Requested Prescriptions Pending Prescriptions Disp Refills metFORMIN ER (GLUCOPHAGE XR) 750 mg 24 hr tablet Sig: Take 1 tablet by mouth daily with breakfast. Take 1/2 tablet every morning RX INSTRUCTIONS: Patient aware RX will be sent to her local [facility] pharmacy. No need to notify patient. Cherelle Aguillon documented in this encounterRegency Hospital [facility]08-22-2023 Miscellaneous Notes* Telephone Encounter - Anastasiia Colón APRN.CNS - 12/21/2022 7:23 AM EDT Addressed in another encounter, closing this one. * Telephone Encounter - Cherelle Aguillon - 12/20/2022 11:11 AM EDT Patient called that her 3 mo appointment the beginning of November had been cancelled and the office staff said they would call her to r/s but she did not receive a call. She is asking that at this point if her PCP would like her to come in or wait to be seen at her scheduled January appointment. Please call her today and advise. TY documented in this encounterRegency Hospital [facility]08-17-2023 History of Present illness Narrative* Anastasiia Colón APRN.CNS - 12/16/2022 11:25 AM EDT Continue with Coumadin dose unchanged and check INR in 1 month * Iwona Donato RN - 12/16/2022 10:15 AM EDT patient had inr completed at [facility] patients inr is 2.9 (patients inr range is 2.0-3.0) patient is currently taking 2mg daily patients last dose change unknown patient has had no changes in medication and no missed doses and no change in diet Advised patient to continue on the same dose(s) and that they would only be contacted regarding dosage and follow up instructions after review with provider, if a change is needed. Written instructions given and patient verbalized understanding. Presently scheduled in 1 month (01/20/23) for follow up INR. documented in this encounterRegency Hospital [facility]08-03-2023 History of Present illness Narrative* Sally Centeno - 12/02/2022 7:51 AM EDT Eri Pritchard is identified through a medication adherence outreach initiative based on pharmacy claims data from [employer] (insurer) for Non-insulin DM medication(s). Patient is reviewed 12/02/22 due to medication adherence concerns with the following medications (name, strength, sig): Metformin ER 750 mg 1 tablet every day . Per data/report, last fill date and days supply: Due 10/31/2022 Per reconcile dispense, last fill date and days supply: No data Per call to pharmacy, last picked up date and days supply: NA Outcome of review/outreach: (choose outcome source and status) - Medication changed or discontinued per reconcile dispense Per encounter on 08/24/2022 patient was experiencing side effects and ws told she could stop the metformin. Sally Rodríguez PharmTess documented in this encounterRegency Hospital [facility]08-02-2023 History of Present illness Narrative* Kailee Johnson MD - 12/01/2022 6:35 PM EDT Images from the original note were not included. Heart , Vascular [facility] Thor[facility] [place] DEPARTMENT OF VASCULAR SURGERY OUTPATIENT VISIT DATE December 01, 2022 OUTPATIENT VISIT TYPE ESTABLISHED SERVICE DATE: 12/01/2022 SERVICE TIME: 6:35 PM PRIMARY CARE PHYSICIAN: Kierra Santiago MD HISTORY OF PRESENT ILLNESS: Ms. Pritchard is a 82 year old female who presents today for a vascular surgery follow-up visit for carotid disease. Patient has no symptoms of TIA, amaurosis or stroke. She underwent carotid duplex demonstrating high PSV and moderately elevated EDV with very high ICA/CCA ratio. Patient then underwent CT angiogram of the neck which radiology interpreted as 60% left carotidstenosis. PAST MEDICAL HISTORY Diagnosis Date TIA (transient ischemic attack) 2001 PAST SURGICAL HISTORY Procedure Laterality Date CAROTID ENDARTERECTOMY Right COLON SURGERY HX HYSTERECTOMY HX REMV CATARACT EXTRACAP,INSERT LENS bilateral 2016 SOCIAL HISTORY Social History Tobacco Use Smoking status: Never Substance Use Topics Alcohol use: Yes Comment: occ Drug use: Never MEDICATIONS: metFORMIN ER (GLUCOPHAGE XR) 750 mg 24 hr tablet Take 1 tablet by mouth daily with breakfast. Take 1/2 tablet every morning ferrous sulfate 325 mg (65 mg iron) tablet Take 325 mg by mouth. warfarin (COUMADIN) 2 mg tablet Take 1 tablet by mouth once daily. aspirin 325 mg tablet Take 325 mg by mouth once daily. calcium carbonate (CALCIUM 600 ORAL) Take 1,200 mg by mouth. COQ10, LIPOSOMAL UBIQUINOL, ORAL Take 200 mg by mouth. CRANBERRY ORAL Take 4,200 mg by mouth. cinnamon bark (CINNAMON ORAL) Take 4,200 mg by mouth. sodium chloride (AYR SALINE) 0.65 % nasal spray Use 2 Sprays in the nose as needed. amLODIPine (NORVASC) 5 mg tablet Take 1.5 tablets by mouth once daily. metoprolol tartrate, short acting, (LOPRESSOR) 25 mg tablet Take 3 tablets by mouth twice daily. oxybutynin ER (DITROPAN XL) 10 mg 24 hr tablet Take 1 tablet by mouth once daily. losartan-hydroCHLOROthiazide (HYZAAR) 100-25 mg per tablet Take 1 tablet by mouth once daily. simvastatin (ZOCOR) 80 mg tablet Take 1 tablet by mouth daily at bedtime. POTASSIUM-99 ORAL Take by mouth. Lactobac no.41/Bifidobact no.7 (PROBIOTIC-10 ORAL) Take by mouth. propylene glycoL (SYSTANE BALANCE) 0.6 % drop 1 Drop. Cholecalciferol, Vitamin D3, 25 mcg (1,000 unit) cap Take 1,000 Units by mouth once daily. vitamin E mixed/tocotrienol (VITAMIN E COMPLEX ORAL) Take 180 mg by mouth. Zinc 50 mg tab Take 25 mg by mouth. fluticasone (FLONASE) 50 mcg/actuation nasal spray Use 2 Sprays in each nostril once daily. ezetimibe 10 mg tab 10 mg, simvastatin 10 mg tab 10 mg Take by mouth once daily. warfarin (COUMADIN) 5 mg tablet Take 0.5 tablets by mouth once daily. or as directed (Patient not taking: No sig reported) UBIDECARENONE/VITAMIN E MIXED (COQ10 SG 100 ORAL) Take by mouth. (Patient not taking: No sig reported) SODIUM CHLORIDE/SODIUM BICARB (SINUS WASH NASAL) Use in the nose. (Patient not taking: No sig reported) ALLERGIES: ALLERGIES Allergen Reactions Accupril [Quinapril] Unknown Calan [Verapamil] Unknown Lotensin [Benazepri* Unknown Metformin Intolerance Sulfa (Sulfonamide * Unknown PHYSICAL EXAM: BP 146/75 (BP Site: Right Arm, BP Position: Sitting, BP Cuff Size: Regular Adult) Pulse 75 [id number]% General: Alert and oriented, No acute distress, Healthy appearance Integumentary: Normal color, no rash, no lesions. HEENT: EOM, pupils equal, round and reactive., Carotid bruit, left Cardiovascular: Pulse regular. Extremities: No deformity, no edema or tenderness, no joint swelling or clubbing. Neurological: Normal cognition and motor skills. Gait normal. No weakness or sensory deficit. Fluent speech. CN's grossly intact. Vascular: Symmetric bilateral upper extremity pulses. Diagnostic tests reviewed for today's visit: Non-Invasive Vascular Laboratory [facility] Carotid Duplex Bilateral/Complete Date of service/time: 08/10/2022 10:03:56 AM Name: ERI PRITCHARD Date of : 1940 Age: 81 years Gender: F Clinical Indication Follow-up study on a patient with known carotid disease. Status post right common carotid and internal carotid endarterectomy . Outside facility 2001. History of TIA. TECHNIQUE -------- A carotid duplex ultrasound examination was performed, including grayscale imaging and color Doppler and spectral Doppler examination of the below mentioned arteries. FINDINGS -------- RIGHT SIDE Common carotid artery: Origin: PSV: 67 cm/s. EDV: 17 cm/s. Proximal: PSV: 61 cm/s. EDV: 10 cm/s. Mid: PSV: 52 cm/s. EDV: 14 cm/s. Distal: PSV: 54 cm/s. EDV: 15 cm/s. Internal carotid artery: Origin: PSV: 64 cm/s. EDV: 21 cm/s. Proximal: PSV: 90 cm/s. EDV: 35 cm/s. Mid: PSV: 67 cm/s. EDV: 16 cm/s. Distal: PSV: 61 cm/s. EDV: 11 cm/s. Mild heterogeneous plaque from origin to proximal. ICA/CCA Ratio: 1.7 External carotid artery: Origin: PSV: 124 cm/s. EDV: 24 cm/s. Mild heterogeneous plaque at origin. Subclavian artery: Origin: PSV: 118 cm/s. EDV: 0 cm/s. Mild heterogeneous plaque at origin. Innominate artery: PSV: 60 cm/s. EDV: 8 cm/s. Vertebral artery: PSV: 39 cm/s. EDV: 12 cm/s. LEFT SIDE Common carotid artery: Proximal: PSV: 47 cm/s. EDV: 9 cm/s. Mid: PSV: 54 cm/s. EDV: 11 cm/s. Distal: PSV: 42 cm/s. EDV: 8 cm/s. Mild heterogeneous plaque from mid to distal. Internal carotid artery: Origin: PSV: 416 cm/s. EDV: 109 cm/s. Proximal: PSV: 132 cm/s. EDV: 27 cm/s. Mid: PSV: 68 cm/s. EDV: 21 cm/s. Distal: PSV: 39 cm/s. EDV: 13 cm/s. Moderate heterogeneous calcified and shadowing plaque at origin. ICA/CCA Ratio: 9.9 External carotid artery: Origin: PSV: 108 cm/s. EDV: 10 cm/s. Moderate heterogeneous calcified plaque at origin. Subclavian artery: Proximal: PSV: 109 cm/s. EDV: 0 cm/s. Vertebral artery: PSV: 35 cm/s. EDV: 9 cm/s. IMPRESSION Anastasiia Colón EDGE KITTER notified with results. 08/10/2022 11:55 am RIGHT SIDE Common carotid artery: Endarterectomy patch at distal : 0.85 cm. Internal carotid artery: 20-39% stenosis. Endarterectomy patch from origin to proximal . Vertebral artery: Patent and antegrade flow noted. Subclavian artery: Plaque visualized without evidence of hemodynamically significant stenosis. LEFT SIDE Common carotid artery: Plaque visualized without evidence of hemodynamically significant stenosis. Internal carotid artery: 60-79% stenosis. Findings may be underestimated due to calcified shadowing plaque at origin . Lesion at origin : 0.9 cm. ICA/CCA Ratio: 9.9 suggests closer to 80% stenosis. Vertebral artery: Patent and antegrade flow noted. Technologist: Madeleine Gayle RVT, [facility] Ordering physician: ANASTASIIA COLÓN Interpreting physician: Filemon Castaneda MD, RVT 10/12/2022 12:18 PM - Radiology, [place] In Impression IMPRESSION: CTA HEAD: Unremarkable intracranial CTA. CTA NECK: 60% stenosis by NASCET criteria at the origin of the left cervical ICA. No hemodynamically significant stenoses in the remainder the neck arteries. Arterial blood flow was measured to detect acute large vessel occlusion by computer aided detection software: Not Performed. Concordance between software and imaging review: Not Applicable. IMPRESSION: Ms. Pritchard is a 82 year old female with asymptomatic carotid stenosis. Although I do not think her LICA stenosis is as low as 60%, as interpreted by radiology, but measures more towards 75 to 80% and this is consistent with her carotid duplex. We will repeat her carotid duplex in January, as that will be 6 months since her last duplex. Continue aspirin and statin. Return for review of duplex. SIGNATURE: Kailee Johnson MD PATIENT NAME: Eri Pritchard DATE: December 01, 2022 TIME: 6:35 PM documented in this encounterReg[facility]-24-[facility]23 History of Present illness Narrative* Teena Workman RT(R) - 11/22/2022 1:20 PM EDT Radiology Service Progress Note PATIENT NAME: Eri Pritchard DATE OF SERVICE: November 22, 2022 TIME: 4:11 PM PATIENT IDENTITY VERIFICATION COMPLETED USING TWO (2) IDENTIFIERS: Name and Date of confirmedby patient verbally. FALL SCREENING: Has the patient had 2 falls in the last year or 1 fall with injury or currently using an Ambulatory Assistive Device (Walker, Cane, Wheelchair, Crutches, etc.)? No PATIENT GENDER DATA: Female. status: : No status: NO. PATIENT RELEVANT IMPLANT DATA REVIEWED: Yes RADIOLOGY DEPARTMENT: CT; Exam(s) Completed: Chest PERIPHERAL IV DATA: Not applicable SIGNED BY: RT Cas(R) November 22, 2022 4:11 PM documented in this encounterRegency [facility]07-20-2023 History of Present illness Narrative* Anastasiia Colón APRN.CNS - 11/18/2022 3:48 PM EDT Continue with Coumadin dose unchanged and check INR in 4 weeks * Iwona Donato RN - 11/18/2022 9:29 AM EDT patient had inr completed at [facility] patients inr is 3.0 (patients inr range is 2.0-3.0) patient is currently taking 2mg daily patients last dose change unknown patient has had no changes in medication and no missed doses and no change in diet Advised patient to continue on the same dose(s) and that they would only be contacted regarding dosage and follow up instructions after review with provider, if a change is needed. Written instructions given and patient verbalized understanding. Presently scheduled in 4 weeks (12/16/22) for follow up INR. documented in this encounterReg[facility]06-29-2023 History of Present illness Narrative* Anastasiia Colón APRN.CNS - 10/28/2022 3:41 PM EDT Continue with Coumadin dose unchanged and check INR in 3 weeks * Iwona Donato RN - 10/28/2022 9:42 AM EDT patient had inr completed at [facility] patients inr is 2.5 (patients inr range is 2.0-3.0) patient is currently taking 2mg daily patients last dose change unknown patient has had no changes in medication and no missed doses and no change in diet Advised patient to continue on the same dose(s) and that they would only be contacted regarding dosage and follow up instructions after review with provider, if a change is needed. Written instructions given and patient verbalized understanding. Presently scheduled in 3 weeks (11/18/22 - due to the c c will be closed at the 4-5 week doron) for follow up INR. documented in this encounterRegency [facility]06-13-2023 History of Present illness Narrative* Mary Kay Delgado DO - 10/12/2022 11:38 AM EDT This office note has been dictated. Mary Kay Delgado DO documented in this encounterRegency Hospital [facility]06-13-2023 History of Present illness Narrative* Teena Workman, RT(R) - 10/12/2022 9:20 AM EDT Radiology Service Progress Note DATE OF SERVICE: October 12, 2022 TIME: 1:28 PM PATIENT IDENTITY VERIFICATION COMPLETED USING TWO (2) STANDARD IDENTIFIERS: Name and Date of confirmed by patient verbally. FALL SCREENING: Has the patient had 2 falls in the last year or 1 fall with injury or currently using an Ambulatory Assistive Device (Walker, Cane, Wheelchair, Crutches, etc.)? No PATIENT GENDER DATA: Female. status: : No status: NO. PATIENT RELEVANT IMPLANT DATA REVIEWED: Yes ALLERGIES: Reviewed and unchanged CONTRAST ALLERGY: NO. EXAM: CT -CONTRAST INDUCED NEPHROPATHY RISK FACTORS: Patient age > 60 years CREATININE: Creatinine Date Value Ref Range Status 10/12/2022 0.89 0.58 - 0.96 mg/dL Final 07/01/2022 1.08 (H) 0.58 - 0.96 mg/dL Final Estimated Glomerular Filtration Rate Date Value Ref Range Status 10/12/2022 65 >=60 mL/min/1.73m Final Comment: Estimated Glomerular Filtration Rate (eGFR) is calculated using the 2020 CKD-EPI creatinine equation. This equation utilizes serum creatinine, sex, and age as parameters. The creatinine assay has traceable calibration to isotope dilution- mass spectrometry. Refer to KDIGO guidelines for clinical interpretation. In patients with unstable renal function, e.g. those with acute kidney injury, the eGFRmay not accurately reflect actual GFR. P.O.C.T. RESULTS: POC done: Yes, See Lab Tab October 12, 2022 TREATMENT: N/A PERIPHERAL IV DATA: Ambulatory: A peripheral IV was started in the Right antecubital site with a Angio cath: 18 gauge. RADIOLOGY DEPARTMENT: CT; Exam(s) Completed: CTA Brain and CTA Neck SIGNATURE: RT Cas(R) PATIENT NAME: Eri Pritchard DATE: October 12, 2022 TIME: 1:28 PM documented in this encounterRegency Hospital [facility]06-01-2023 History of Present illness Narrative* Anastasiia Colón APRN.CERTIFIED JUVENILE PROBATION OFFICER - 09/30/2022 1:27 PM EDT Continue with current Coumadin dosing and check INR in 4 weeks * Iwona Donato RN - 09/30/2022 9:35 AM EDT patient had inr completed at [facility] patients inr is 2.2 (patients inr range is 2.0-3.0) patient is currently taking 2mg daily patients last dose change unknown patient has had no changes in medication and no missed doses and no change in diet Advised patient to continue on the same dose(s) and that they would only be contacted regarding dosage and follow up instructions after review with provider, if a change is needed. Written instructions given and patient verbalized understanding. Presently scheduled in 4 weeks (10/28/22) for follow up INR. documented in this encounterRegency [facility]05-02-2023 Miscellaneous Notes* Telephone Encounter - Bekah Lu LPN - 08/31/2022 5:03 PM EDT Patient notified of providers message and verbalized understanding. Appt scheduled. * Telephone Encounter - Anastasiia Colón APRN.CNS - 08/31/2022 4:51 PM EDT Labs show high triglycerides. This is likely due to diabetes. Please schedule her for 3-month follow-up with me. Hemoglobin A1c and lipid panel before visit; orders in Component Latest Ref Rng & Units 07/01/2022 08/02/2022 08/24/2022 08/25/2022 08/25/2022 8:37 AM 8:37 AM WBC 3.70 - 11.00 k/uL 6.27 RBC 3.90 - 5.20 m/uL 4.02 Hemoglobin 11.5 - 15.5 g/dL 13.3 Hematocrit 36.0 - 46.0 % 39.7 MCV 80.0 - 100.0 fL 98.8 MCH 26.0 - 34.0 pg 33.1 MCHC 30.5 - 36.0 g/dL 33.5 RDW-CV 11.5 - 15.0 % 14.2 Platelet Count 150 - 400 k/uL 216 MPV 9.0 - 12.7 fL 10.7 Neut% % 57.7 Abs Neut (ANC) 1.45 - 7.50 k/uL 3.62 Lymph% % 28.7 Abs Lymph 1.00 - 4.00 k/uL 1.80 Berks% % 10.2 Abs Berks <0.87 k/uL 0.64 Eosin% % 2.1 Abs Eosin <0.46 k/uL 0.13 Baso% % 1.0 Abs Baso <0.11 k/uL 0.06 Immature Gran % % 0.3 IMMATURE GRANS (ABS) <0.10 k/uL <0.03 NRBC /100 WBC 0.5 Absolute nRBC <0.01 k/uL 0.03 (H) DTYPE Auto Protein, Total 6.3 - 8.0 g/dL 7.0 Albumin 3.9 - 4.9 g/dL 4.1 Calcium 8.5 - 10.2 mg/dL 9.7 Bilirubin, Total 0.2 - 1.3 mg/dL 0.5 Alkaline Phosphatase 34 - 123 U/L 41 AST 13 - 35 U/L 23 ALT 7 - 38 U/L 30 Glucose 74 - 99 mg/dL 192 (H) BUN 7 - 21 mg/dL 23 (H) Creatinine 0.58 - 0.96 mg/dL 1.08 (H) Sodium 136 - 144 mmol/L 137 Potassium 3.7 - 5.1 mmol/L 4.0 Chloride 97 - 105 mmol/L 100 CO2 22 - 30 mmol/L 27 Anion Gap 9 - 18 mmol/L 10 eGFR >=60 mL/min/1.73m 51 (L) Cholesterol, Total <200 mg/dL 161 Triglyceride <150 mg/dL 426 (H) HDL Cholesterol >39 mg/dL 23 (L) Non HDL Cholesterol <130 mg/dL 138 (H) Fasting Time hrs 15 VLDL Cholesterol 103 (H) TC:HDL Ratio <5.10 7.00 (H) LDL Cholesterol LDL:HDL Ratio Total Cholesterol, Nonfasting <200 mg/dL 142 Triglycerides, Nonfasting <150 mg/dL 459 (H) HDL Cholesterol, Nonfasting >39 mg/dL 21 (L) LDL Cholesterol, Nonfasting Non HDL Cholesterol, Nonfasting <130 mg/dL 121 VLDL Cholesterol, Nonfasting Total Chol/HDL Ratio, Nonfasting <5.10 mg/dL 6.76 (H) LDL/HDL Ratio, Nonfasting Creatinine, Ur Random (UCRR) 20.0 - 300.0 mg/dL 68.1 Albumin, Urine Random mg/L <12.0 Albumin/Creat Ratio <30 mg/g <18 Hemoglobin A1C 4.3 - 5.6 % 7.6 (H) Estimated Average Glucose mg/dL 171 PT Sec 9.7 - 13.0 sec 24.1 (H) PT INR 0.9 - 1.3 2.4 (H) LDL Cholesterol, Direct <100 mg/dL 35 TSH 0.270 - 4.200 mIU/L 2.450 documented in this encounterRegency Hospital [facility]04-28-2023 Miscellaneous Notes* Telephone Encounter - Bekah Lu LPN - 08/27/2022 1:22 PM EDT Patient notified of coumadin instructions and verbalized understanding. Appointment was made for the coumadin clinic in two weeks. * Telephone Encounter - Anastasiia Colón APRN.CNS - 08/27/2022 11:57 AM EDT Continue with Coumadin dose unchanged and check INR in 2 weeks with Coumadin clinic-please scheduleappt-no show for last visit. * Telephone Encounter - Emily Bustos LPN - 08/26/2022 7:55 PM EDT Spoke with pt and she was given INR results. She is taking coumadin 2 mg daily. No missed doses or medication changes. She will try changing her life style before trying a new medication. Emily Bustos LPN * Telephone Encounter - Romina Sawant LPN - 08/25/2022 11:06 AM EDT Phone rang busy, will attempt later to reach patient. Romina Sawant LPN * Telephone Encounter - Anastasiia Colón APRN.CNS - 08/24/2022 5:29 PM EDT 1-Her INR today is 2.4. Please verify current Coumadin dosing, missed doses and any medication changes. 2-She can stop taking metformin. If she would like I can order an alternate medication. Or she can work on lifestyle measures: Limit intake of sugar and sweets, excess carbohydrates and and walk or complete other activity daily and recheck hemoglobin A1c in 3 - 6 months if she would prefer. * Telephone Encounter - Luz Marques - 08/24/2022 9:05 AM EDT Pt states her current medication Metformin is causing her to become ill and hurting her stomach. Says she needs to inform Minerva Colón that she can no longer take it. Please review and advise. Luz PETTY documented in this encounterRegency Hospital [facility]04-19-2023 History of Present illness Narrative* Praful Ledesma RT(R) - 08/18/2022 9:30 AM EDT Radiology Service Progress Note PATIENT NAME: Eri Pritchard DATE OF SERVICE: August 18, 2022 TIME: 9:24 AM PATIENT IDENTITY VERIFICATION COMPLETED USING TWO (2) IDENTIFIERS: Name and Date of confirmedby patient verbally. FALL SCREENING: Has the patient had 2 falls in the last year or 1 fall with injury or currently using an Ambulatory Assistive Device (Walker, Cane, Wheelchair, Crutches, etc.)? No PATIENT GENDER DATA: Female. status: : No status: NO. PATIENT RELEVANT IMPLANT DATA REVIEWED: Not Applicable RADIOLOGY DEPARTMENT: Bone Density PERIPHERAL IV DATA: Not applicable SIGNED BY: RT Velvet(R) August 18, 2022 9:24 AM documented in this encounterRegency Hospital [facility]04-19-2023 Miscellaneous Notes* Result Encounter Note - Anastasiia Colón APRN.CNS - 08/18/2022 9:30 AM EDT BMD shows osteopenia documented in this encounterRegency Hospital [facility]04-14-2023 Miscellaneous Notes* Telephone Encounter - Julianne Pedraza - 08/13/2022 4:43 PM EDT Scheduled * Telephone Encounter - Kisha Irizarry RN - 08/13/2022 11:52 AM EDT Patient returned call and given provider's message below with verbalized understanding. PSS: please phone patient to schedule appts. * Telephone Encounter - Bekah Lu LPN - 08/12/2022 5:01 PM EDT Attempted to contact patient but no answer. Left message for patient to call office at her soonest convenience for carotid ultrasound results. * Telephone Encounter - Anastasiia Colón APRN.CNS - 08/10/2022 11:37 AM EDT Please let her know that carotid ultrasound shows 80% occlusion on the left. Recommend she see a vascular provider for recommendations regarding management of this at her earliest convenience. Schedule if willing. No report of carotid symptoms in the previous 6 months at her last visit. Lipid panel obtained but LDL result not returned due to elevated triglycerides. Would recheck with next labwork, fasting. Diabetes without prior treatment, this was initiated at her last visit. Currently treating diabetes, blood pressure and cholesterol. IMPRESSION RIGHT SIDE Common carotid artery: Endarterectomy patch at distal : 0.85 cm. Internal carotid artery: 20-39% stenosis. Endarterectomy patch from origin to proximal . Vertebral artery: Patent and antegrade flow noted. Subclavian artery: Plaque visualized without evidence of hemodynamically significant stenosis. LEFT SIDE Common carotid artery: Plaque visualized without evidence of hemodynamically significant stenosis. Internal carotid artery: 60-79% stenosis. Findings may be underestimated due to calcified shadowing plaque at origin . Lesion at origin : 0.9 cm. ICA/CCA Ratio: 9.9 suggests closer to 80% stenosis. Vertebral artery: Patent and antegrade flow noted. documented in this encounterRegency Hospital [facility]04-03-2023 Miscellaneous Notes* Telephone Encounter - Bekah Lu LPN - 08/02/2022 4:59 PM EDT Patient notified of coumadin instructions and verbalized understanding. * Telephone Encounter - Anastasiia Colón APRN.CNS - 08/02/2022 4:02 PM EDT Please let her know INR is 2.3. Continue on with Coumadin dose unchanged, 2 mg daily. documented in this encounterRegency Hospital [facility]04-03-2023 Miscellaneous Notes* Addendum Note - Anastasiia Colón APRN.CNS - 08/02/2022 12:46 PM EDTAddended by: ANASTASIIA COLÓN on: 08/02/2022 12:46 PM Modules accepted: Orders documented in this [facility]04-03-2023 Instructions* Patient Instructions* Anastasiia Colón APRN.CNS - 08/02/2022 9:49 AM EDT Schedule appointment with Coumadin clinic. Schedule an eye exam. Consider getting vaccines at your local pharmacy or here at clinic Tdap shingles pneumonia and COVID-19 vaccines appear to be due for you unless you completed these [id number]. documented in this encounterRegency Hospital [facility]04-03-2023 History of Present illness Narrative* Anastasiia Colón APRN.CNS - 08/02/2022 9:40 AM EDT SUBJECTIVE: COVID-19 VACCINE(1) Never done PNEUMOCOCCAL: 65+(1 - PCV) Never done URINE ALBUMIN:CREATININE RATIO Never done DILATED RETINAL EXAM Never done DIABETIC FOOT EXAM Never done DTAP,TDAP,TD(1 - Tdap) Never done SHINGRIX VACCINE(1 of 2) Never done BONE DENSITY Never done ADVANCE DIRECTIVE DISCUSSION Never done DEPRESSION ASSESSMENT Never done HPI Eri Pritchard is a 81 year old female. PMH significant for ACTIVE PROBLEM LIST Hyperlipidemia Primary Hypertension Carotid Atherosclerosis Subclinical Hypothyroidism Fatty Liver Heart Murmur Type 2 Diabetes Mellitus With Hyperglycemia, Without Long-Term Current Use of Insulin (Hcc) Factor V Deficiency (Hcc) HPI excerpted from previous visit: Presents today to establish care with Kierra Santiago MD. Notes recent move to [facility] for family member. Previous PCP: Roel Maza, , DO [address] [facility] [address] [facility] [id number] Last seen: January 2022 Labwork:January 2022 ER/Hospitalization: none reported Outside records:carries med list, last labwork, last office note and INR/coumadin instructions to visit. Last lab work was completed in January 2022. Hemoglobin A1c was 8.1%. She was told to decrease carbohydrate intake. States has not treated diabetes mellitus previously. She reports current FBS 200. Lipid profile showed total cholesterol 151 triglycerides 413 HDL of 28 and LDL less than 30. Metabolic panel shows slight elevation of ALT and AST. Glucose 218. Metabolic panel otherwise unremarkable. CBC unremarkable. Has not treated DM per previous provider. She is chronic OAC for clotting disorder. She has been taking coumadin 2.5 mg QD for the last couple of months, has not had INR checked. No bleeding difficulties reported Notes prior AF with RVR, resolved, not a chronic problem. She reports history of PAPA, s/p R endarterectomy. She reports left TIA at that time. Taking ditropan for OAB. DIABETES MELLITUS: Today notes home FBS in the 200 range, did not bring meter with her. No prior DMtreatment reported. Without report excessive thirst or increased frequency of urination, chest painor dyspnea , numbness, tingling or pain in extremities, new or unusual visual symptoms, low sugar/hypoglycemic reactions, weight loss/gain, lightheadedness/dizziness, and bowel changes/loose stools. Patient's last HgA1C was Hemoglobin A1C (%) Date Value 07/01/2022 7.6 ) Review of Systems Constitutional: Negative. Objective BP 130/62 Pulse 76 Resp 16 Wt 71.7 kg (158 lb) BMI 28.44 kg/m Physical Exam Vitals and nursing note reviewed. Constitutional: Appearance: Normal appearance. HENT: Head: Normocephalic and atraumatic. Eyes: Conjunctiva/sclera: Conjunctivae normal. Neck: Thyroid: No thyromegaly. Vascular: Normal carotid pulses. No JVD. Cardiovascular: Rate and Rhythm: Normal rate and regular rhythm. Pulses: Carotid pulses are 2+ on the right side and 2+ on the left side. Radial pulses are 2+ on the right side and 2+ on the left side. Heart sounds: Normal heart sounds. Pulmonary: Effort: Pulmonary effort is normal. Breath sounds: Normal breath sounds. Abdominal: General: Bowel sounds are normal. Palpations: Abdomen is soft. Skin: General: Skin is warm and dry. Neurological: General: No focal deficit present. Mental Status: She is alert and oriented to person, place, and time. ALLERGIES Allergen Reactions Accupril [Quinapril] Unknown Calan [Verapamil] Unknown Lotensin [Benazepri* Unknown Sulfa (Sulfonamide * Unknown Medications warfarin (COUMADIN) 2 mg tablet Take 1 tablet by mouth once daily. aspirin 325 mg tablet Take 325 mg by mouth once daily. calcium carbonate (CALCIUM 600 ORAL) Take 1,200 mg by mouth. COQ10, LIPOSOMAL UBIQUINOL, ORAL Take 200 mg by mouth. CRANBERRY ORAL Take 4,200 mg by mouth. cinnamon bark (CINNAMON ORAL) Take 1,500 mg by mouth. sodium chloride (AYR SALINE) 0.65 % nasal spray Use 2 Sprays in the nose as needed. warfarin (COUMADIN) 5 mg tablet Take 0.5 tablets by mouth once daily. or as directed amLODIPine (NORVASC) 5 mg tablet Take 1.5 tablets by mouth once daily. metoprolol tartrate, short acting, (LOPRESSOR) 25 mg tablet Take 3 tablets by mouth twice daily. oxybutynin ER (DITROPAN XL) 10 mg 24 hr tablet Take 1 tablet by mouth once daily. losartan-hydroCHLOROthiazide (HYZAAR) 100-25 mg per tablet Take 1 tablet by mouth once daily. simvastatin (ZOCOR) 80 mg tablet Take 1 tablet by mouth daily at bedtime. POTASSIUM-99 ORAL Take by mouth. Lactobac no.41/Bifidobact no.7 (PROBIOTIC-10 ORAL) Take by mouth. propylene glycoL (SYSTANE BALANCE) 0.6 % drop 1 Drop. Cholecalciferol, Vitamin D3, 25 mcg (1,000 unit) cap Take 1,000 Units by mouth once daily. vitamin E mixed/tocotrienol (VITAMIN E COMPLEX ORAL) Take 180 mg by mouth. Zinc 50 mg tab Take 25 mg by mouth. fluticasone (FLONASE) 50 mcg/actuation nasal spray Use 2 Sprays in each nostril once daily. UBIDECARENONE/VITAMIN E MIXED (COQ10 SG 100 ORAL) Take by mouth. ezetimibe 10 mg tab 10 mg, simvastatin 10 mg tab 10 mg Take by mouth once daily. SODIUM CHLORIDE/SODIUM BICARB (SINUS WASH NASAL) Use in the nose. VITAMIN A/VIT B COMP/VITAMIN E (VITAMIN B COMPLEX-VIT A-VIT E ORAL) Take by mouth. PAST MEDICAL HISTORY Diagnosis Date TIA (transient ischemic attack) 2001 PAST SURGICAL HISTORY Procedure Laterality Date CAROTID ENDARTERECTOMY Right COLON SURGERY HX HYSTERECTOMY HX REMV CATARACT EXTRACAP,INSERT LENS bilateral 2016 Social History Tobacco Use Smoking status: Never FAMILY HISTORY Problem Relation Age of Onset Clotting Disorder Mother Stroke Father Liver Disease Sister Heart Attack Brother Component Latest Ref Rng & Units 06/15/2022 07/01/2022 WBC 3.70 - 11.00 k/uL 6.27 RBC 3.90 - 5.20 m/uL 4.02 Hemoglobin 11.5 - 15.5 g/dL 13.3 Hematocrit 36.0 - 46.0 % 39.7 MCV 80.0 - 100.0 fL 98.8 MCH 26.0 - 34.0 pg 33.1 MCHC 30.5 - 36.0 g/dL 33.5 RDW-CV 11.5 - 15.0 % 14.2 Platelet Count 150 - 400 k/uL 216 MPV 9.0 - 12.7 fL 10.7 Neut% % 57.7 Abs Neut (ANC) 1.45 - 7.50 k/uL 3.62 Lymph% % 28.7 Abs Lymph 1.00 - 4.00 k/uL 1.80 Berks% % 10.2 Abs Berks <0.87 k/uL 0.64 Eosin% % 2.1 Abs Eosin <0.46 k/uL 0.13 Baso% % 1.0 Abs Baso <0.11 k/uL 0.06 Immature Gran % % 0.3 IMMATURE GRANS (ABS) <0.10 k/uL <0.03 NRBC /100 WBC 0.5 Absolute nRBC <0.01 k/uL 0.03 (H) DTYPE Auto Protein, Total 6.3 - 8.0 g/dL 7.0 Albumin 3.9 - 4.9 g/dL 4.1 Calcium 8.5 - 10.2 mg/dL 9.7 Bilirubin, Total 0.2 - 1.3 mg/dL 0.5 Alkaline Phosphatase 34 - 123 U/L 41 AST 13 - 35 U/L 23 ALT 7 - 38 U/L 30 Glucose 74 - 99 mg/dL 192 (H) BUN 7 - 21 mg/dL 23 (H) Creatinine 0.58 - 0.96 mg/dL 1.08 (H) Sodium 136 - 144 mmol/L 137 Potassium 3.7 - 5.1 mmol/L 4.0 Chloride 97 - 105 mmol/L 100 CO2 22 - 30 mmol/L 27 Anion Gap 9 - 18 mmol/L 10 eGFR >=60 mL/min/1.73m 51 (L) Total Cholesterol, Nonfasting <200 mg/dL 142 Triglycerides, Nonfasting <150 mg/dL 459 (H) HDL Cholesterol, Nonfasting >39 mg/dL 21 (L) LDL Cholesterol, Nonfasting Non HDL Cholesterol, Nonfasting <130 mg/dL 121 VLDL Cholesterol, Nonfasting Total Chol/HDL Ratio, Nonfasting <5.10 mg/dL 6.76 (H) LDL/HDL Ratio, Nonfasting PT Sec 9.7 - 13.0 sec 34.1 (H) 43.6 (H) PT INR 0.9 - 1.3 3.6 (H) 4.6 (H) Hemoglobin A1C 4.3 - 5.6 % 7.6 (H) Estimated Average Glucose mg/dL 171 TSH 0.270 - 4.200 mIU/L 2.450 ASSESSMENT/PLAN: 1. Type 2 diabetes mellitus with hyperglycemia, without long-term current use of insulin (HCC) - ICD9: 250.00, 790.29, ICD10: E11.65 (primary diagnosis) Endorse DM diet, daily activity such as walking. Start taking metformin once daily with breakfast. Provided with written information regarding DM diet, self care- CC booklets. - ALBUMIN/CREAT RATIO RND UR 2. Encounter for immunization - ICD9: V03.89, ICD10: Z23 Deferred for now 3. Screening for diabetic retinopathy - ICD9: V80.2, ICD10: Z13.5 - CONSULT TO OPHTHALMOLOGY 4. Screening for osteoporosis - ICD9: V82.81, ICD10: Z13.820 5. Asymptomatic menopause - ICD9: V49.81, ICD10: Z78.0 Not sure when this was last done, she will check her records and schedule if needed - DXA-AXIAL SKELETON INR check today in lab and urine albumin/creatinine in lab today Schedule with coumadin clinic 2 weeks Advised: Schedule appointment with Coumadin clinic. Schedule an eye exam. Consider getting vaccines at your local pharmacy or here at clinic Tdap shingles pneumonia and COVID-19 vaccines appear to be due for you unless you completed these [id number]. Anastasiia Colón APRN.CNS Medical Decision Making: Problems: Moderate: 2+ stable chronic illnesses Data: Unique test(s) ordered: 2 Risk: Low: Low risk from testing/treatment Medical Decision Making Level: 3 - Low documented in this encounterRegency Hospital [facility]03-03-2023 Miscellaneous Notes* Telephone Encounter - Noemi Cullen RN - 07/02/2022 9:16 AM EST Pt contacted and given provider's message below. Pt verbalized understanding and wrote instructionsdown. Noemi Cullne RN * Telephone Encounter - Anastasiia Colón APRN.CERTIFIED JUVENILE PROBATION OFFICER - 07/02/2022 7:34 AM EST Please let her know labs overall in acceptable range. INR supratherapeutic. Recommend holding Coumadin dose today. Then start taking Coumadin 2 mg daily and check INR in 1 week. Coumadin clinic appointment is scheduled. New prescription sent to pharmacy. Hemoglobin A1c is 7.6, improved from previous. Recommend avoiding sugar and sweets in diet, limit portion sizes of bread potatoes rice and walk daily to help keep this in control. Recheck at next visit ~6 mos. Component Latest Ref Rng & Units 06/15/2022 07/01/2022 WBC 3.70 - 11.00 k/uL 6.27 RBC 3.90 - 5.20 m/uL 4.02 Hemoglobin 11.5 - 15.5 g/dL 13.3 Hematocrit 36.0 - 46.0 % 39.7 MCV 80.0 - 100.0 fL 98.8 MCH 26.0 - 34.0 pg 33.1 MCHC 30.5 - 36.0 g/dL 33.5 RDW-CV 11.5 - 15.0 % 14.2 Platelet Count 150 - 400 k/uL 216 MPV 9.0 - 12.7 fL 10.7 Neut% % 57.7 Abs Neut (ANC) 1.45 - 7.50 k/uL 3.62 Lymph% % 28.7 Abs Lymph 1.00 - 4.00 k/uL 1.80 Berks% % 10.2 Abs Berks <0.87 k/uL 0.64 Eosin% % 2.1 Abs Eosin <0.46 k/uL 0.13 Baso% % 1.0 Abs Baso <0.11 k/uL 0.06 Immature Gran % % 0.3 IMMATURE GRANS (ABS) <0.10 k/uL <0.03 NRBC /100 WBC 0.5 Absolute nRBC <0.01 k/uL 0.03 (H) DTYPE Auto Protein, Total 6.3 - 8.0 g/dL 7.0 Albumin 3.9 - 4.9 g/dL 4.1 Calcium 8.5 - 10.2 mg/dL 9.7 Bilirubin, Total 0.2 - 1.3 mg/dL 0.5 Alkaline Phosphatase 34 - 123 U/L 41 AST 13 - 35 U/L 23 ALT 7 - 38 U/L 30 Glucose 74 - 99 mg/dL 192 (H) BUN 7 - 21 mg/dL 23 (H) Creatinine 0.58 - 0.96 mg/dL 1.08 (H) Sodium 136 - 144 mmol/L 137 Potassium 3.7 - 5.1 mmol/L 4.0 Chloride 97 - 105 mmol/L 100 CO2 22 - 30 mmol/L 27 Anion Gap 9 - 18 mmol/L 10 eGFR >=60 mL/min/1.73m 51 (L) Total Cholesterol, Nonfasting <200 mg/dL 142 Triglycerides, Nonfasting <150 mg/dL 459 (H) HDL Cholesterol, Nonfasting >39 mg/dL 21 (L) LDL Cholesterol, Nonfasting Non HDL Cholesterol, Nonfasting <130 mg/dL 121 VLDL Cholesterol, Nonfasting Total Chol/HDL Ratio, Nonfasting <5.10 mg/dL 6.76 (H) LDL/HDL Ratio, Nonfasting PT Sec 9.7 - 13.0 sec 34.1 (H) 43.6 (H) PT INR 0.9 - 1.3 3.6 (H) 4.6 (H) Hemoglobin A1C 4.3 - 5.6 % 7.6 (H) Estimated Average Glucose mg/dL 171 TSH 0.270 - 4.200 mIU/L 2.450 [facility] History of Present illness Narrative* Anastasiia Colón APRN.CNS - 07/01/2022 8:07 AM EST SUBJECTIVE: COVID-19 VACCINE(1) Never done PNEUMOCOCCAL: 65+(1 - PCV) Never done URINE ALBUMIN:CREATININE RATIO Never done DILATED RETINAL EXAM Never done DIABETIC FOOT EXAM Never done DTAP,TDAP,TD(1 - Tdap) Never done SHINGRIX VACCINE(1 of 2) Never done BONE DENSITY Never done INFLUENZA(1) Never done ADVANCE DIRECTIVE DISCUSSION Never done DEPRESSION ASSESSMENT Never done HPI Eri Pritchard is a 81 year old female. PMH significant for ACTIVE PROBLEM LIST Hyperlipidemia Primary Hypertension Carotid Atherosclerosis Subclinical Hypothyroidism Fatty Liver Heart Murmur Type 2 Diabetes Mellitus With Hyperglycemia, Without Long-Term Current Use of Insulin (Hcc) Factor V Deficiency (Hcc) Presents today to establish care with Kierra Santiago MD. Notes recent move to area for family member. Previous PCP: Roel Maza DO, DO [address] [facility] [id number] Last seen: January 2022 Labwork:January 2022 ER/Hospitalization: none reported Outside records:carries med list, last labwork, last office note and INR/coumadin instructions to visit. Last lab work was completed in January 2022. Hemoglobin A1c was 8.1%. She was told to decrease carbohydrate intake. Lipid profile showed total cholesterol 151 triglycerides 413 HDL of 28 and LDL less than 30. Metabolic panel shows slight elevation of ALT and AST. Glucose 218. Metabolic panel otherwise unremarkable. CBC unremarkable. Has not treated DM per previous provider. She is chronic OAC for clotting disorder. She has been taking coumadin 2.5 mg QD for the last couple of months, has not had INR checked. No bleeding difficulties reported Notes prior AF with RVR, resolved, not a chronic problem. States has not treated diabetes mellitus previously. She reports current FBS 200. She reports history of PAPA, s/p R endarterectomy. She reports left TIA at that time. Taking ditropan for OAB. Review of Systems Constitutional: Negative. Objective BP 118/66 Pulse 67 Resp 16 Ht 158.8 cm (5' 2.5) Wt 71.7 kg (158 lb) SpO2 96% BMI 28.44kg/m Physical Exam Vitals and nursing note reviewed. Constitutional: Appearance: Normal appearance. HENT: Head: Normocephalic and atraumatic. Eyes: Conjunctiva/sclera: Conjunctivae normal. Neck: Thyroid: No thyromegaly. Vascular: Normal carotid pulses. No JVD. Cardiovascular: Rate and Rhythm: Normal rate and regular rhythm. Pulses: Carotid pulses are 2+ on the right side and 2+ on the left side. Radial pulses are 2+ on the right side and 2+ on the left side. Heart sounds: Normal heart sounds. Pulmonary: Effort: Pulmonary effort is normal. Breath sounds: Normal breath sounds. Abdominal: General: Bowel sounds are normal. Palpations: Abdomen is soft. Skin: General: Skin is warm and dry. Neurological: General: No focal deficit present. Mental Status: She is alert and oriented to person, place, and time. ALLERGIES Allergen Reactions Accupril [Quinapril] Unknown Calan [Verapamil] Unknown Lotensin [Benazepri* Unknown Sulfa (Sulfonamide * Unknown Medications aspirin 325 mg tablet Take 325 mg by mouth once daily. calcium carbonate (CALCIUM 600 ORAL) Take 1,200 mg by mouth. COQ10, LIPOSOMAL UBIQUINOL, ORAL Take 200 mg by mouth. CRANBERRY ORAL Take 4,200 mg by mouth. cinnamon bark (CINNAMON ORAL) Take 1,500 mg by mouth. sodium chloride (AYR SALINE) 0.65 % nasal spray Use 2 Sprays in the nose as needed. warfarin (COUMADIN) 5 mg tablet Take 0.5 tablets by mouth once daily. or as directed amLODIPine (NORVASC) 5 mg tablet Take 1.5 tablets by mouth once daily. metoprolol tartrate, short acting, (LOPRESSOR) 25 mg tablet Take 3 tablets by mouth twice daily. losartan-hydroCHLOROthiazide (HYZAAR) 100-25 mg per tablet Take 1 tablet by mouth once daily. POTASSIUM-99 ORAL Take by mouth. Lactobac no.41/Bifidobact no.7 (PROBIOTIC-10 ORAL) Take by mouth. propylene glycoL (SYSTANE BALANCE) 0.6 % drop 1 Drop. Cholecalciferol, Vitamin D3, (VITAMIN D) 25 mcg (1,000 unit) cap Take 1,000 Units by mouth once daily. vitamin E mixed/tocotrienol (VITAMIN E COMPLEX ORAL) Take 180 mg by mouth. Zinc 50 mg tab Take 25 mg by mouth. fluticasone (FLONASE) 50 mcg/actuation nasal spray Use 2 Sprays in each nostril once daily. UBIDECARENONE/VITAMIN E MIXED (COQ10 SG 100 ORAL) Take by mouth. SODIUM CHLORIDE/SODIUM BICARB (SINUS WASH NASAL) Use in the nose. VITAMIN A/VIT B COMP/VITAMIN E (VITAMIN B COMPLEX-VIT A-VIT E ORAL) Take by mouth. oxybutynin ER (DITROPAN XL) 10 mg 24 hr tablet Take 1 tablet by mouth once daily. simvastatin (ZOCOR) 80 mg tablet Take 1 tablet by mouth daily at bedtime. cranberry-B.tlifyrjg-L-Si phos 480 mg-20 mg- 100million cell tab Take by mouth. (Patient not taking: Reported on 07/01/2022) CALCIUM CARB/MAGNESIUM CMB #10 (SUSAN-MAG ORAL) Take by mouth. (Patient not taking: Reported on 07/01/2022) Multivitamin capsule Take 1 capsule by mouth once daily. (Patient not taking: Reported on 07/01/2022) OMEGA-3 FATTY ACIDS/FISH OIL (OMEGA 3 FISH OIL ORAL) Take by mouth. (Patient not taking: Reported on 07/01/2022) SELENIUM (SELENIMIN ORAL) Take by mouth. (Patient not taking: Reported on 07/01/2022) ezetimibe 10 mg tab 10 mg, simvastatin 10 mg tab 10 mg Take by mouth once daily. cyanocobalamin (VITAMIN B-12) 1,000 mcg tab Take 1,000 mcg by mouth once daily. (Patient not taking: Reported on 07/01/2022) CALCIUM CARBONATE/VITAMIN D3 (VITAMIN D-3 ORAL) Take by mouth. (Patient not taking: Reported on 07/01/2022) PAST MEDICAL HISTORY Diagnosis Date TIA (transient ischemic attack) 2001 PAST SURGICAL HISTORY Procedure Laterality Date CAROTID ENDARTERECTOMY Right COLON SURGERY HX HYSTERECTOMY HX Social History Tobacco Use Smoking status: Never FAMILY HISTORY Problem Relation Age of Onset Clotting Disorder Mother Stroke Father Liver Disease Sister Heart Attack Brother Component Latest Ref Rng & Units 06/15/2022 07/01/2022 WBC 3.70 - 11.00 k/uL 6.27 RBC 3.90 - 5.20 m/uL 4.02 Hemoglobin 11.5 - 15.5 g/dL 13.3 Hematocrit 36.0 - 46.0 % 39.7 MCV 80.0 - 100.0 fL 98.8 MCH 26.0 - 34.0 pg 33.1 MCHC 30.5 - 36.0 g/dL 33.5 RDW-CV 11.5 - 15.0 % 14.2 Platelet Count 150 - 400 k/uL 216 MPV 9.0 - 12.7 fL 10.7 Neut% % 57.7 Abs Neut (ANC) 1.45 - 7.50 k/uL 3.62 Lymph% % 28.7 Abs Lymph 1.00 - 4.00 k/uL 1.80 Berks% % 10.2 Abs Berks <0.87 k/uL 0.64 Eosin% % 2.1 Abs Eosin <0.46 k/uL 0.13 Baso% % 1.0 Abs Baso <0.11 k/uL 0.06 Immature Gran % % 0.3 IMMATURE GRANS (ABS) <0.10 k/uL <0.03 NRBC /100 WBC 0.5 Absolute nRBC <0.01 k/uL 0.03 (H) DTYPE Auto Protein, Total 6.3 - 8.0 g/dL 7.0 Albumin 3.9 - 4.9 g/dL 4.1 Calcium 8.5 - 10.2 mg/dL 9.7 Bilirubin, Total 0.2 - 1.3 mg/dL 0.5 Alkaline Phosphatase 34 - 123 U/L 41 AST 13 - 35 U/L 23 ALT 7 - 38 U/L 30 Glucose 74 - 99 mg/dL 192 (H) BUN 7 - 21 mg/dL 23 (H) Creatinine 0.58 - 0.96 mg/dL 1.08 (H) Sodium 136 - 144 mmol/L 137 Potassium 3.7 - 5.1 mmol/L 4.0 Chloride 97 - 105 mmol/L 100 CO2 22 - 30 mmol/L 27 Anion Gap 9 - 18 mmol/L 10 eGFR >=60 mL/min/1.73m 51 (L) Total Cholesterol, Nonfasting <200 mg/dL 142 Triglycerides, Nonfasting <150 mg/dL 459 (H) HDL Cholesterol, Nonfasting >39 mg/dL 21 (L) LDL Cholesterol, Nonfasting Non HDL Cholesterol, Nonfasting <130 mg/dL 121 VLDL Cholesterol, Nonfasting Total Chol/HDL Ratio, Nonfasting <5.10 mg/dL 6.76 (H) LDL/HDL Ratio, Nonfasting PT Sec 9.7 - 13.0 sec 34.1 (H) 43.6 (H) PT INR 0.9 - 1.3 3.6 (H) 4.6 (H) Hemoglobin A1C 4.3 - 5.6 % 7.6 (H) Estimated Average Glucose mg/dL 171 TSH 0.270 - 4.200 mIU/L 2.450 ASSESSMENT/PLAN: 1. Routine medical exam - ICD9: V70.0, ICD10: Z00.00 (primary diagnosis) Endorse a plant-based diet and routine exercise such as walking - CBC + DIFF - COMP METABOLIC PANEL - HGB A1C 2. Primary hypertension - ICD9: 401.9, ICD10: I10 Controlled continue unchanged. Endorse DASH diet - CBC + DIFF - COMP METABOLIC PANEL 3. Hyperlipidemia, unspecified hyperlipidemia type - ICD9: 272.4, ICD10: E78.5 - LIPID PANEL, NONFASTING 4. Factor V deficiency (HCC) - ICD9: 286.3, ICD10: D68.2 INR currently supratherapeutic. We will adjust dose accordingly Currently taking 2.5 mg daily. Recommend hold July 02, 2022 dose then take 2 mg daily. Enrolled with Coumadin clinic - PROTHROMBIN TIME/PT - INR (POC) 5. Type 2 diabetes mellitus with hyperglycemia, without long-term current use of insulin (HCC) - ICD9: 250.00, 790.29, ICD10: E11.65 Below target A1c of 8%. Endorse DM diet and routine exercise such as walking. Recheck at next visit ~6 months - HGB A1C - CONSULT TO PODIATRY - LIPID PANEL, NONFASTING 6. Atrial fibrillation with RVR (HCC) - ICD9: 427.31, ICD10: I48.91 History, resoled; not current 7. Carotid atherosclerosis, unspecified laterality - ICD9: 433.10, ICD10: I65.29 8. Subclinical hypothyroidism - ICD9: 244.8, ICD10: E03.8 TSH within normal limits - COMP METABOLIC PANEL - TSH BLD 9. Hypersomnia - ICD9: 780.54, ICD10: G47.10 10. Fatty liver - ICD9: 571.8, ICD10: K76.0 - COMP METABOLIC PANEL 11. Heart murmur - ICD9: 785.2, ICD10: R01.1 12. Nocturnal hypoxemia - ICD9: 327.24, ICD10: G47.34 13. Peripheral arterial disease (HCC) - ICD9: 443.9, ICD10: I73.9 14. Neuropathy - ICD9: 355.9, ICD10: G62.9 notes abnormal sensation in her feet 15. OAB (overactive bladder) - ICD9: 596.51, ICD10: N32.81 Taking ditropan, effective. 16. Callus of foot - ICD9: 700, ICD10: L84 17. Injury of toe on right foot, subsequent encounter - ICD9: V58.89, 959.7, ICD10: S99.921D - CONSULT TO PODIATRY 18. Stenosis of carotid artery, unspecified laterality - ICD9: 433.10, ICD10: I65.29 19. History of carotid endarterectomy - ICD9: V45.89, ICD10: Z98.890 Currently asymptomatic - US CAROTID ARTERIES [facility] 1 mo follow up Anastasiia Colón APRN.CERTIFIED [employer]ICER 6 mo follow up MD Anastasiia Wilson APRN.CNS Medical Decision Making: Problems: Moderate: 2+ stable chronic illnesses Data: Unique test(s) ordered: 3+ Risk: Moderate: Drug management Medical Decision Making Level: 4 - Moderate [facility]* Diagnosis Routine medical exam- Primary Routine general medical examination at a health care facility Primary hypertension Unspecified essential hypertension Hyperlipidemia, unspecified hyperlipidemia type 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 Type 2 diabetes mellitus with hyperglycemia, without long-term current use of insulin (HCC) Carotid atherosclerosis, unspecified laterality Subclinical hypothyroidism Other specified acquired hypothyroidism Hypersomnia Hypersomnia, unspecified Fatty liver Other chronic nonalcoholic liver disease Heart murmur Undiagnosed cardiac murmurs Nocturnal hypoxemia Hypoxemia Neuropathy Mononeuritis of unspecified site OAB (overactive bladder) Hypertonicity of bladder Callus of foot Corns and callosities Injury of toe on right foot, subsequent encounter Stenosis of carotid artery, unspecified laterality History of carotid endarterectomy Other postprocedural status [facility]* Diagnosis Type 2 diabetes mellitus with hyperglycemia, without long-term current use of insulin (HCC)- Primary Encounter for immunization Need for other specified prophylactic vaccination against single bacterial disease Screening for diabetic retinopathy Screening for other eye conditions Screening for osteoporosis Special screening for osteoporosis Asymptomatic menopause [facility]* Diagnosis Stenosis of carotid artery, unspecified laterality- Primary History of carotid endarterectomy Other postprocedural status History of transient ischemic attack (TIA) Transient ischemic attack (TIA), and cerebral infarction without residual deficits Stenosis of left carotid artery Occlusion and stenosis of carotid artery without mention of cerebral infarction [facility] Diagnosis Type 2 diabetes mellitus with hyperglycemia, without long-term current use of insulin ([facility])- Primary High triglycerides Pure hyperglyceridemia [facility]* Diagnosis 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 [facility]* Diagnosis Stenosis of carotid artery, unspecified laterality History of carotid endarterectomy Other postprocedural status History of transient ischemic attack (TIA) Transient ischemic attack (TIA), and cerebral infarction without residual deficits Stenosis of left carotid artery Occlusion and stenosis of carotid artery without mention of cerebral infarction [facility]* Diagnosis 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 [facility]* Diagnosis 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 [facility]* Diagnosis Carotid stenosis, asymptomatic, bilateral- Primary [facility]* Diagnosis 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 [facility]* Diagnosis Stress and adjustment reaction- Primary Other specified adjustment reaction Sleep disturbance Sleep disturbance, unspecified Type 2 diabetes mellitus with diabetic polyneuropathy, without long-term current use of insulin (HCC) [facility]* Diagnosis 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 [facility]* Diagnosis Type 2 diabetes mellitus with diabetic polyneuropathy, without long-term current use of insulin (HCC)- Primary Stenosis of carotid artery, unspecified laterality History of carotid endarterectomy Other postprocedural status Primary hypertension Unspecified essential hypertension 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 Encounter for long-term current use of medication Mixed hyperlipidemia Chronic cough Cough Need for influenza vaccination Need for prophylactic vaccination and inoculation against influenza Encounter for immunization Need for other specified prophylactic vaccination against single bacterial disease [facility] Diagnosis 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 [facility] Diagnosis Lung nodules Other nonspecific abnormal finding of lung field [facility]* Diagnosis Occlusion and stenosis of unspecified carotid artery [facility]* Diagnosis Screening for osteoporosis Special screening for osteoporosis Asymptomatic menopause [facility]* Diagnosis Bilateral carotid artery stenosis- Primary Occlusion and stenosis of carotid artery without mention of cerebral infarction Primary hypertension Unspecified essential hypertension Elevated HDL Other symptoms involving cardiovascular system Factor 5 Leiden mutation, heterozygous (HCC) Primary hypercoagulable state [facility]* Diagnosis 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 [facility]* Diagnosis Type 2 diabetes mellitus with hyperglycemia, without long-term current use of insulin (HCC)- Primary Peripheral vascular disease, unspecified (HCC) Peripheral vascular disease, unspecified 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 Factor 5 Leiden mutation, heterozygous (HCC) Primary hypercoagulable state Type 2 diabetes mellitus with diabetic polyneuropathy, without long-term current use of insulin ([facility]) Encounter for immunization Need for other specified prophylactic vaccination against single bacterial disease Facial lesion Unspecified disorder of skin and subcutaneous tissue Other acute sinusitis Mixed hyperlipidemia Subclinical hypothyroidism Other specified acquired hypothyroidism [facility] Diagnosis 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 [facility]* Diagnosis 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 [facility]* Diagnosis Left arm numbness- Primary Disturbance of skin sensation [facility]* Diagnosis Uncontrolled type 2 diabetes mellitus with hyperglycemia (HCC)- Primary Hyponatremia Hyposmolality and/or hyponatremia [facility]* Diagnosis Uncontrolled type 2 diabetes mellitus with hyperglycemia (HCC) [facility]* Diagnosis 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 [facility] Diagnosis Lung nodules Other nonspecific abnormal finding of lung field [facility] Diagnosis Bilateral carotid artery stenosis- Primary Occlusion and stenosis of carotid artery without mention of cerebral infarction [facility]* Diagnosis Type 2 diabetes mellitus with diabetic polyneuropathy, without long-term current use of insulin (HCC)- Primary [facility] Diagnosis Chest pain, unspecified type- Primary Encounter for immunization Need for other specified prophylactic vaccination against single bacterial disease Type 2 diabetes mellitus with hyperglycemia, without long-term current use of insulin (HCC) Lung nodules Other nonspecific abnormal finding of lung field Transaminitis Nonspecific elevation of levels of transaminase or lactic acid dehydrogenase (LDH) Factor 5 Leiden mutation, heterozygous (HCC) Primary hypercoagulable state [facility]* Diagnosis Elevated alanine aminotransferase (ALT) level- Primary Nonspecific elevation of levels of transaminase or lactic acid dehydrogenase (LDH) [facility] Diagnosis Chest pain, unspecified type [facility] Diagnosis Elevated alanine aminotransferase (ALT) level Nonspecific elevation of levels of transaminase or lactic acid dehydrogenase (LDH) [facility]* Diagnosis 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 [facility]* Diagnosis Acute cough- Primary URI, acute Acute upper respiratory infections of unspecified site [facility] Diagnosis Bacterial pneumonia- Primary Bacterial pneumonia, unspecified [facility] Diagnosis Type 2 diabetes mellitus with hyperglycemia, without long-term current use of insulin (HCC)- Primary [facility] Diagnosis Hypoxia- Primary Hypoxemia [facility] Diagnosis Acute cough [facility] Diagnosis Pain- Primary Generalized pain [facility] Diagnosis Critical limb ischemia of right lower extremity (HCC)- Primary Generalized weakness Other malaise and fatigue Acute occlusion of artery Peripheral vascular disease (HCC) Peripheral vascular disease, unspecified History of femoropopliteal bypass Other postprocedural status Dry gangrene (HCC) Gangrene Pressure injury of right heel, stage 2 (HCC) 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, without long-term current use of insulin (HCC) Factor 5 Leiden mutation, heterozygous (HCC) Primary hypercoagulable state [facility] Diagnosis Acute on chronic congestive heart failure, unspecified heart failure type (HCC)- Primary Type 2 diabetes mellitus with diabetic polyneuropathy, without long-term current use of insulin (HCC) Hypokalemia Hypopotassemia Leg cramp Cramp of limb Ulcer of right foot, limited to breakdown of skin (HCC) Callus of foot Corns and callosities Dependent rubor Unspecified erythematous condition [facility]* Diagnosis Critical limb ischemia of right lower extremity (HCC)- Primary Pain of foot, unspecified laterality [facility] Diagnosis Chest pain, unspecified type- Primary Lung nodules Other nonspecific abnormal finding of lung field Transaminitis Nonspecific elevation of levels of transaminase or lactic acid dehydrogenase (LDH) Atrial fibrillation, unspecified type (HCC) Type 2 diabetes mellitus with hyperglycemia, without long-term current use of insulin ([facility]) Factor 5 Leiden mutation, heterozygous ([facility]) Primary hypercoagulable state Mid back pain on left side Pain in thoracic spine [facility] Diagnosis Critical limb ischemia of right lower extremity (HCC)- Primary S/P transmetatarsal amputation of foot, right (HCC) S/P femoral-popliteal bypass surgery Other postprocedural status Acute gastric ulcer, unspecified whether gastric ulcer hemorrhage or perforation present Duodenal ulcer Duodenal ulcer, unspecified as acute or chronic, without hemorrhage, perforation, or obstruction [facility] Diagnosis 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 [facility] Diagnosis Aortic valve disorder- Primary Aortic valve disorders Pure hypercholesterolemia Primary hypertension Unspecified essential hypertension Heart murmur Undiagnosed cardiac murmurs [facility] Diagnosis Occlusion and stenosis of unspecified carotid artery- Primary [facility] Diagnosis 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 [facility] Diagnosis 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 [facility] Diagnosis Pure hypercholesterolemia- Primary Primary hypertension Unspecified essential hypertension 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 Acute on chronic congestive heart failure, unspecified heart failure type (HCC) Atrial fibrillation, unspecified type (HCC) [facility] Diagnosis Type 2 diabetes mellitus with diabetic polyneuropathy, without long-term current use of insulin (HCC)- Primary [facility] Diagnosis Type 2 diabetes mellitus with diabetic polyneuropathy, without long-term current use of insulin (HCC)- Primary Hypokalemia Hypopotassemia Other acute sinusitis Decreased hearing of both ears Subclinical hypothyroidism Other specified acquired hypothyroidism History of anemia Personal history of diseases of blood and blood-forming organs S/P transmetatarsal amputation of foot, right (HCC) Stage 3b chronic kidney disease (HCC) documented in this encounter [facility] for referral (narrative)* Outpatient Procedure (Routine) - Authorized Specialty Diagnoses / Procedures Referred By Gilbert vaughn Referred To [facility] Diagnoses Stenosis of carotid artery, unspecified laterality History of carotid endarterectomy Procedures US CAROTID ARTERIES [facility] DUPLEX SCAN EXTRACRANIAL ART COMPL BI STUDY Anastasiia Colón APRN.CERTIFIED JUVENILE PROBATION OFFICER [address] [place] [address] [facility] [address] [place] [address] Referral ID Status Reason Start Date Expiration Date Visits Requested Visits Authorized [id number] Authorized Auto-Generat ed Referral 07/01/2022 07/01/2023 1 1 * Consult, Test, Treat (Routine) - Pending Review Specialty Diagnoses / Procedures Referred By Gilbert vaughn Referred To Contact Podiatry Diagnoses Type 2 diabetes mellitus with hyperglycemia, without long-term current use of insulin (HCC) Callus of foot Injury of toe on right foot, subsequent encounter Procedures CONSULT TO PODIATRY OFFICE/OUTPATIENT [facility] 60-74 MINUTES Anastasiia Colón APRN.CERTIFIED JUVENILE PROBATION OFFICER [address] [place] [address] Referral ID Status Reason Start Date Expiration Date Visits Requested Visits Authorized [id number] Pending Review PCP Requested Referral 07/01/2022 07/01/2023 1 1 [facility] for referral (narrative)* Outpatient Procedure (Routine) - Pending Review Specialty Diagnoses / Procedures Referred By Contac t Referred To Contact [facility] Diagnoses Carotid stenosis, asymptomatic, bilateral Procedures US CAROTID ARTERIES K[facility]ADWO VAS LAB DUPLEX SCAN EXTRACRANIAL ART COMPL BI STUDY Kailee Johnson MD [address] [place] [address] [facility] [address] [address] Referral ID Status Reason Start Date Expiration Date Visits Requested Visits Authorized [id number] Pending Review Auto-Generat ed Referral 12/01/2022 12/01/2023 1 1 [facility] for referral (narrative)* Outpatient Procedure (Routine) - Authorized Specialty Diagnoses / Procedures Referred By Contac t Referred To Contact [facility] Diagnoses Bilateral carotid artery stenosis Procedures US CAROTID ARTERIES [facility] LAB DUPLEX SCAN EXTRACRANIAL ART COMPL BI STUDY Lelo Sood, EDGE KITTER.REPORT SPECIALIST [address] [place] [address] [facility] [address] [address] Referral ID Status Reason Start Date Expiration Date Visits Requested Visits Authorized [id number] Authorized Auto-Generat ed Referral 03/14/2024 1 1 [facility] for referral (narrative)* Outpatient Procedure (Routine) - Authorized Specialty Diagnoses / Procedures Referred By Contac t Referred To Contact [facility] Diagnoses Bilateral carotid artery stenosis Procedures US CAROTID ARTERIES [facility] LAB DUPLEX SCAN EXTRACRANIAL ART COMPL BI STUDY Mary Kay Delgado, [address] [place] [address] [facility] [address] [place] [address] Referral ID Status Reason Start Date Expiration Date Visits Requested Visits Authorized [id number] Authorized Auto-Generat ed Referral 10/04/2023 10/03/2024 1 1 [facility] for referral (narrative)* Diagnostic Procedure Only (Routine) - Authorized Specialty Diagnoses / Procedures Referred By Contac t Referred To Contact US IMAGING Diagnoses Elevated alanine aminotransferase (ALT) level Procedures US ABD RIGHT UPPER QUADRANT US ABDOMINAL REAL TIME W/IMAGE LIMITED Joelle Barreto, EDGE KITTER.REPORT SPECIALIST [address] [place] [address] [place] [address] Referral ID Status Reason Start Date Expiration Date Visits Requested Visits Authorized [id number] Authorized Auto-Generat ed Referral 11/18/2023 12/17/2024 1 1 [facility] for referral (narrative)* Diagnostic Procedure Only (Routine) - Closed Specialty Diagnoses / Procedures Referred By Contac t Referred To Contact [facility] IM[facility] Diagnoses Elevated alanine aminotransferase (ALT) level Procedures US ABD RIGHT UPPER QUADRANT US ABDOMINAL REAL TIME W/IMAGE LIMITED Joelle Barreto EDGE KITTER.REPORT SPECIALIST [address] [place] [address] [place] [address] Referral ID Status Reason Start Date Expiration Date V isits Requested Visits Authorized [id number] Closed Auto-Generate d Referral 11/18/2023 12/17/2024 1 1 [facility] for referral (narrative)* Outpatient Procedure (Routine) - Authorized Specialty Diagnoses / Procedures Referred By Contac t Referred [facility] Diagnoses Aortic valve disorder Procedures ECHO ECHO TTHRC R-T 2D W/WOM-MODE COMPL SPEC&COLR D Terrence Jane MD [address], [address] [place] [address] [facility] [address] [place] [address] Referral ID Status Reason Start Date Expiration Date Visits Requested Visits Authorized [id number] Authorized Auto-Generat ed Referral 04/23/2025 1 1 [facility] Outpatient Procedure (Routine) - Closed Specialty Diagnoses / Procedures Referred By Gilbert vaughn Referred To [facility] Diagnoses Chest pain, unspecified type Procedures STRESS ECHO TREADMILL ECHO TTHRC R-T 2D W/WO M-MODE COMPLETE REST&ST Anastasiia Colón, EDGE KITTER.CERTIFIED JUVENILE PROBATION OFFICER [address] [place] [address] [facility] [address] [place] [address] Referral ID Status Reason Start Date Expiration Date V isits Requested Visits Authorized [id number] Closed Auto-Generate d Referral 10/12/2023 05/01/2024 1 1 [facility] Reason for Referral Specialty Diagnoses / Procedures Referred By Gilbert vaughn Referred To Contact Ophthalmology Diagnoses Screening for diabetic retinopathy Procedures CONSULT TO OPHTHALMOLOGY OFFICE/OUTPATIENT [facility] 60-74 MINUTES Anastasiia Colón, EDGE KITTER.CERTIFIED JUVENILE PROBATION OFFICER [address] [place] [address] Referral ID Status Reason Start Date Expiration Date Visits Requested Visits Authorized [id number] Authorized PCP Requested Referral 08/02/2022 08/02/2023 1 1 Specialty Diagnoses / Procedures Referred By Gilbert vaughn Referred To Contact Vascular Surgery Diagnoses Stenosis of carotid artery, unspecified laterality History of carotid endarterectomy History of transient ischemic attack (TIA) Stenosis of left carotid artery Procedures CONSULT TO VASCULAR SURGERY OFFICE/OUTPATIENT [facility] 60-74 MINUTES Anastasiia Colón, EDGE KITTER.CERTIFIED JUVENILE PROBATION OFFICER [address] [place] [address] Referral ID Status Reason Start Date Expiration Date Visits Requested Visits Authorized [id number] Authorized PCP Requested Referral 08/10/2022 08/10/2023 1 1 Specialty Diagnoses / Procedures Referred By Gilbert vaughn Referred To Contact Vascular Medicine Diagnoses Stenosis of carotid artery, unspecified laterality History of carotid endarterectomy History of transient ischemic attack (TIA) Stenosis of left carotid artery Procedures CONSULT TO VASCULAR MEDICINE OFFICE/OUTPATIENT [facility] 60-74 MINUTES Anastasiia Colón, EDGE KITTER.CERTIFIED JUVENILE PROBATION OFFICER [address] [place] [address] Referral ID Status Reason Start Date Expiration Date Visits Requested Visits Authorized [id number] Authorized PCP Requested Referral 08/10/2022 08/10/2023 1 1 Specialty Diagnoses / Procedures Referred By Contac t Referred To Contact CT IMAGING Diagnoses Lung nodules Procedures CT CHEST WO IVCON DIAGNOSTIC COMPUTED TOMOGRAPHY THORAX W/O CNTRST Mary Kay Delgado, DO [address] [place] [id number] [facility] [place] [address] Referral ID Status Reason Start Date Expiration Date V isits Requested Visits Authorized [id number] Closed Auto-Generate d Referral 11/08/2022 12/08/2023 1 1 Specialty Diagnoses / Procedures Referred By Contac t Referred To Contact CT IMAGING Diagnoses Occlusion and stenosis of unspecified carotid artery Procedures CTA NECK W IVCON CT ANGIOGRAPHY NECK W/CONTRAST/NONCONTRAST Mary Kay Delgado, DO [address] [place] [id number] [facility] [place] [address] Referral ID Status Reason Start Date Expiration Date V isits Requested Visits Authorized [id number] Closed Auto-Generate d Referral 09/21/2022 10/21/2023 1 1 Specialty Diagnoses / Procedures Referred By Contac t Referred To Contact CT IMAGING Diagnoses Occlusion and stenosis of unspecified carotid artery Procedures CTA HEAD W IVCON CT ANGIOGRAPHY HEAD W/CONTRAST/NONCONTRAST Mary Kay Delgado, DO [address] [facility] [place] [id number] [facility] [place] [address] Referral ID Status Reason Start Date Expiration Date V isits Requested Visits Authorized [id number] Closed Auto-Generate d Referral 09/21/2022 10/21/2023 1 1 Specialty Diagnoses / Procedures Referred By Contac t Referred To Contact Dermatology Diagnoses Facial lesion Procedures CONSULT TO DERMATOLOGY Anastasiia Colón, EDGE KITTER.CERTIFIED JUVENILE PROBATION OFFICER [address] [place] [address] Referral ID Status Reason Start Date Expiration Date Visits Requested Visits Authorized [id number] Ref Not Required PCP Requested Referral 06/07/2023 06/06/2024 1 1 Specialty Diagnoses / Procedures Referred By Contac t Referred To Contact Diagnoses Uncontrolled type 2 diabetes mellitus with hyperglycemia (HCC) Procedures CONSULT TO DIABETES EDUCATION DSME/MNT MEDICAL NUTRITION ASSMT&IVNTJ INDIV EACH 15 TX MEDICAL NUTRITION ASSMT&IVNTJ INDIV EACH 15 TX MEDICAL NUTRITION ASSMT&IVNTJ INDIV EACH 15 TX MEDICAL NUTRITION ASSMT&IVNTJ INDIV EACH 15 [place] Anastasiia Colón, SHANNAN.CERTIFIED JUVENILE PROBATION OFFICER [address] [place] [address] Referral ID Status Reason Start Date Expiration Date Visits Requested Visits Authorized [id number] Pending Review PCP Requested Referral 10/11/2023 10/10/2024 1 1 Specialty Diagnoses / Procedures Referred By Contac t Referred To Contact Gastroenterology Diagnoses Transaminitis Procedures CONSULT TO GASTROENTEROLOGY OFFICE/OUTPATIENT [facility] 60 MINUTES Anastasiia Colón, EDGE KITTER.CERTIFIED JUVENILE PROBATION OFFICER [address] [place] [address] Referral ID Status Reason Start Date Expiration Date Visits Requested Visits Authorized [id number] Pending Review PCP Requested Referral 10/10/2023 10/09/2024 1 1 Specialty Diagnoses / Procedures Referred By Contac t Referred To Contact [facility] Diagnoses Chest pain, unspecified type Procedures STRESS ECHO TREADMILL ECHO TTHRC R-T 2D W/WO M-MODE COMPLETE REST&ST Anastasiia Colón, SHANNAN.CERTIFIED JUVENILE PROBATION OFFICER [address] [place] [address] [facility] [address] [place] [address] Referral ID Status Reason Start Date Expiration Date Visits Requested Visits Authorized [id number] Pending Review Auto-Generat ed Referral 10/10/2023 10/09/2024 1 1 Specialty Diagnoses / Procedures Referred By Contac t Referred To Contact Cardiology Diagnoses Atrial fibrillation, unspecified type (HCC) Chest pain, unspecified type Procedures CONSULT TO CARDIOLOGY OFFICE/OUTPATIENT [facility] 60 MINUTES Anastasiia Colón, SHANNAN.CERTIFIED JUVENILE PROBATION OFFICER [address] [place] [address] Referral ID Status Reason Start Date Expiration Date Visits Requested Visits Authorized [id number] Pending Review PCP Requested Referral 10/10/2023 10/09/2024 1 1 Specialty Diagnoses / Procedures Referred By Gilbert vaughn Referred To Contact CT IMAGING Diagnoses Lung nodules Procedures CT CHEST WO IVCON DIAGNOSTIC COMPUTED TOMOGRAPHY THORAX W/O CNTRST Colón Anastasiia, EDGE KITTER.CERTIFIED JUVENILE PROBATION OFFICER [address] [facility] [place] [address] [place] [address] Referral ID Status Reason Start Date Expiration Date Visits Requested Visits Authorized [id number] Authorized Auto-Generat ed Referral 05/02/2023 05/01/2024 1 1 Referral ID Status Reason Start Date Expiration Date Visits Requested Visits Authorized [id number] Authorized Auto-Generat ed Referral 05/08/2024 06/07/2025 1 1 Referral ID Status Reason Start Date Expiration Date Visits Requested Visits Authorized [id number] Authorized Auto-Generat ed Referral 05/08/2024 06/07/2025 1 1 Advance Directives No Advanced Directives Records FoundDocuments on File Type Date Recorded Patient Business Integration Analyst Expl anation Advance Directive(s) 01/11/2024 10:31 AM Documents on File Type Date Recorded Patient Business Integration Analyst Expl anation Advance Directive(s) 01/11/2024 10:31 AM Advance Directive Response Recorded Date/ Time Living Will Yes March 20, 024 2:40pm Power of Anti Air Warfare Operations Officer Yes March 20, 2024 2:40pm Name of Medical Power of Anti Air Warfare Operations Officer Ruth Pritchard March 20, 2024 2:40pm Living Will Yes April 04 9:05am Power of Anti Air Warfare Operations Officer Yes April 04, 2024 9:05am Name of Medical Power of Anti Air Warfare Operations Officer DORIS April 04, 2024 9:05am Advance Directive Response Recorded Date/ Time Living Will Yes March 20 2:40pm Do you have a Healthcare Power of Anti Air Warfare Operations Officer? Yes March 20, 2024 2:40pm Name of Medical Power of Anti Air Warfare Operations Officer Ruth Pritchard March 20, 2024 2:40pm Living Will Yes April 04 9:05am Do you have a Healthcare Power of Anti Air Warfare Operations Officer? Yes April 04, 2024 9:05am Name of Medical Power of Anti Air Warfare Operations Officer DORIS April 04, 2024 9:05am Advance Directive Response Recorded Date/ Time Living Will Yes August 17, 2024 10:51am Do you have a Healthcare Power of Anti Air Warfare Operations Officer? Yes August 17, 2024 10:51am Name of Medical Power of Anti Air Warfare Operations Officer August 17, 2024 10:51am Chief Complaint and Reason for Visit Chief Complaint Admit Date RIGHT TRANSMETATARSAL AMPUTATION Novembe r 2023 6:10pm RIGHT TRANSMETATARSAL AMPUTATION Novembe r 2023 12:58pm RIGHT TRANSMETATARSAL AMPUTATION Novembe r 2023 8:15am RIGHT TRANSMETATARSAL AMPUTATION Decembe r 2023 5:03pm RIGHT TRANSMETATARSAL AMPUTATION Decembe r 2023 8:30am [facility] 04/08 CHF May 14, 2024 1 :25pm Encounter for surgical aftercare followi ng surgery May 28, 2024 8:56am 4 M FU, 2 M F from hospital June 8:31am Gastroesophageal reflux disease (GERD) F ebruary 2024 8:20am E-ORDER June 20, 2024 9:44am 1 M FU June 20, 2024 9:53am E-ORDER July 10, 2024 9:4 1am Reason for Visit Admit Date Allergic rhinitis March 19, 2024 6:10pm Anemia March 19, 2024 6:10pm Atrial fibrillation March 19, 2024 6:10pm Debility March 19, 2024 6:10pm Diabetes mellitus March 19, 2024 6:10pm Essential (primary) hypertension Novembe r 2023 6:10pm GERD (gastroesophageal reflux disease) N ovember 2023 6:10pm 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) March 19, 2024 6:10pm Muscle spasm March 19, 2024 6:10pm Neuropathic pain March 19, 2024 6:10pm Overactive bladder March 19, 2024 6:10pm Hyperlipidemia March 19, 2024 6:10pm Peripheral vascular disease March 6:10pm Atherosclerosis of artery of extremity w ith gangrene March 19, 2024 6:10pm Diabetic wet gangrene of the foot Novemb er 2023 6:10pm Hematoma of lower leg March 19 6:10pm Osteomyelitis of ankle or foot, right, a cute March 19, 2024 6:10pm Acute osteomyelitis of right foot Novemb er 2023 6:10pm Black toe March 19, 2024 6:10pm Anticoagulant long-term use May 1:25pm Aortic valve stenosis May 14, 2024 1:25pm Chronic a-fib May 14, 2024 1 :25pm Hyperlipidemia May 14, 2024 1 :25pm Peripheral vascular disease May 1:25pm Carotid artery disease June 12 8:31am Diarrhea June 12, 2024 8:31am Peripheral vascular disease June 8:31am Diarrhea June 19, 2024 8:20am Gastric ulcer June 19, 2024 8:20am GERD (gastroesophageal reflux disease) F [facility] 2024 8:20am Anticoagulant long-term use June 9:53am Aortic valve stenosis June 20 9:53am Chronic a-fib June 20, 2024 9:53am Hyperlipidemia June 20, 2024 9:53am Peripheral vascular disease June 9:53am Chief Complaint Admit Date RIGHT TRANSMETATARSAL AMPUTATION Novembe r 2023 6:10pm RIGHT TRANSMETATARSAL AMPUTATION Decembe r 2023 5:03pm RIGHT TRANSMETATARSAL AMPUTATION Decembe r 2023 8:30am [facility] 04/08 CHF May 14, 2024 1 :25pm Encounter for surgical aftercare followi ng surgery May 28, 2024 8:56am 4 M FU, 2 M F from hospital June 8:31am Gastroesophageal reflux disease (GERD) F [facility] 2024 8:20am E-ORDER June 20, 2024 9:44am 1 M FU June 20, 2024 9:53am E-ORDER July 10, 2024 9:4 1am INT LAB ORDER July 25, 2024 11: 07am Chief Complaint Admit Date [facility] 04/08 CHF May 14, 2024 1 :25pm Encounter for surgical aftercare followi ng surgery May 28, 2024 8:56am 4 M FU, 2 M F from hospital June 8:31am Gastroesophageal reflux disease (GERD) F [facility] 2024 8:20am E-ORDER June 20, 2024 9:44am 1 M FU June 20, 2024 9:53am E-ORDER July 10, 2024 9:4 1am INT LAB ORDER July 25, 2024 11: 07am E ORDER August 15, 2024 9:5 4am Reason for Visit Admit Date Anticoagulant long-term use May 1:25pm Aortic valve stenosis May 14, 2024 1:25pm Chronic a-fib May 14, 2024 1 :25pm Hyperlipidemia May 14, 2024 1 :25pm Peripheral vascular disease May 1:25pm Carotid artery disease June 12 8:31am Diarrhea June 12, 2024 8:31am Peripheral vascular disease June 8:31am Diarrhea June 19, 2024 8:20am Gastric ulcer June 19, 2024 8:20am GERD (gastroesophageal reflux disease) F [facility] 2024 8:20am Anticoagulant long-term use June 9:53am Aortic valve stenosis June 20 9:53am Chronic a-fib June 20, 2024 9:53am Hyperlipidemia June 20, 2024 9:53am Peripheral vascular disease June 9:53am Chief Complaint Admit Date 4 M FU, 2 M F from hospital June 8:31am Gastroesophageal reflux disease (GERD) F [facility] 2024 8:20am E-ORDER June 20, 2024 9:44am 1 M FU June 20, 2024 9:53am E-ORDER July 10, 2024 9:4 1am INT LAB ORDER July 25, 2024 11: 07am E ORDER August 15, 2024 9:5 4am POST OP, PVD August 28, 2024 8:3 7am DWD May 8th, 2025 8:49am Reason for Visit Admit Date Carotid artery disease June 12 8:31am Diarrhea June 12, 2024 8:31am Peripheral vascular disease June 8:31am Diarrhea June 19, 2024 8:20am Gastric ulcer June 19, 2024 8:20am GERD (gastroesophageal reflux disease) F [facility] 2024 8:20am Anticoagulant long-term use June 9:53am Aortic valve stenosis June 20 9:53am Chronic a-fib June 20, 2024 9:53am Hyperlipidemia June 20, 2024 9:53am Peripheral vascular disease June 9:53am Gastric ulcer August 22, 2024 11: 25am Chief Complaint Admit Date 4 M FU, 2 M F from hospital June 8:31am Gastroesophageal reflux disease (GERD) F [facility] 2024 8:20am E-ORDER June 20, 2024 9:44am 1 M FU June 20, 2024 9:53am E-ORDER July 10, 2024 9:4 1am INT LAB ORDER July 25, 2024 11: 07am E ORDER August 15, 2024 9:5 4am POST OP, PVD August 28, 2024 8:3 7am DWD September 06, 2024 8:49am Disorder of arteries and arterioles, uns pecified October 01, 2024 4:29pm PAIN AND SWELLING October 02, 2024 12:51 pm Family History No Family History Records Found Relationship Condition Age at Onset Recorded Date/T laine Not Specified Diabetes mellitus Unknown Cardiac disease Unknown Myocardial infarction Unknown Chronic obstructive pulmonary disease Unk nown Hypertension Unknown Cerebrovascular accident (CVA) Unknown Asthma Unknown Summary Purpose Additional Source Comments Source Comments (unrecognize d section and content) In the event this informatio n is protected by the Federal Confidentiality of Alcohol and Drug Abuse Patient Records regulations: The Federal rules restrict any use of the information to criminally investigate or prosecute any alcohol or drug abuse patient.[facility] the event this information is protected by the Federal Confidentiality of Alcohol and Drug Abuse Patient Records regulations: The Federal rules restrict any use of the information to criminally investigate or prosecute any alcohol or drug abuse patient.[facility] the event this information is protected by the Federal Confidentiality of Alcohol and Drug Abuse Patient Records regulations: The Federal rules restrict any use of the information to criminally investigate or prosecute any alcohol or drug abuse patient.[facility] the event this information is protected by the Federal Confidentiality of Alcohol and Drug Abuse Patient Records regulations: The Federal rules restrict any use of the information to criminally investigate or prosecute any alcohol or drug abuse patient.[facility] the event this information is protected by the Federal Confidentiality of Alcohol and Drug Abuse Patient Records regulations: The Federal rules restrict any use of the information to criminally investigate or prosecute any alcohol or drug abuse patient.[facility] the event this information is protected by the Federal Confidentiality of Alcohol and Drug Abuse Patient Records regulations: The Federal rules restrict any use of the information to criminally investigate or prosecute any alcohol or drug abuse patient.[facility] the event this information is protected by the Federal Confidentiality of Alcohol and Drug Abuse Patient Records regulations: The Federal rules restrict any use of the information to criminally investigate or prosecute any alcohol or drug abuse patient.[facility] the event this information is protected by the Federal Confidentiality of Alcohol and Drug Abuse Patient Records regulations: The Federal rules restrict any use of the information to criminally investigate or prosecute any alcohol or drug abuse patient.[facility] the event this information is protected by the Federal Confidentiality of Alcohol and Drug Abuse Patient Records regulations: The Federal rules restrict any use of the information to criminally investigate or prosecute any alcohol or drug abuse patient.[facility] the event this information is protected by the Federal Confidentiality of Alcohol and Drug Abuse Patient Records regulations: The Federal rules restrict any use of the information to criminally investigate or prosecute any alcohol or drug abuse patient.[facility] the event this information is protected by the Federal Confidentiality of Alcohol and Drug Abuse Patient Records regulations: The Federal rules restrict any use of the information to criminally investigate or prosecute any alcohol or drug abuse patient.[facility] the event this information is protected by the Federal Confidentiality of Alcohol and Drug Abuse Patient Records regulations: The Federal rules restrict any use of the information to criminally investigate or prosecute any alcohol or drug abuse patient.[facility] [facility] the event this information is protected by the Federal Confidentiality of Alcohol and Drug Abuse Patient Records regulations: The Federal rules restrict any use of the information to criminally investigate or prosecute any alcohol or drug abuse patient.[facility] the event this information is protected by the Federal Confidentiality of Alcohol and Drug Abuse Patient Records regulations: The Federal rules restrict any use of the information to criminally investigate or prosecute any alcohol or drug abuse patient.[facility] [place] [facility]In the event this information is protected by the Federal Confidentiality of Alcohol and Drug Abuse Patient Records regulations: The Federal rules restrict any use of the information to criminally investigate or prosecute any alcohol or drug abuse patient.[facility] [place] [facility]In the event this information is protected by the Federal Confidentiality of Alcohol and Drug Abuse Patient Records regulations: The Federal rules restrict any use of the information to criminally investigate or prosecute any alcohol or drug abuse patient.[facility] [place] [facility]In the event this information is protected by the Federal Confidentiality of Alcohol and Drug Abuse Patient Records regulations: The Federal rules restrict any use of the information to criminally investigate or prosecute any alcohol or drug abuse patient.[facility] [place] [facility]In the event this information is protected by the Federal Confidentiality of Alcohol and Drug Abuse Patient Records regulations: The Federal rules restrict any use of the information to criminally investigate or prosecute any alcohol or drug abuse patient.[facility] [place] [facility]In the event this information is protected by the Federal Confidentiality of Alcohol and Drug Abuse Patient Records regulations: The Federal rules restrict any use of the information to criminally investigate or prosecute any alcohol or drug abuse patient.[facility] [place] [facility]In the event this information is protected by the Federal Confidentiality of Alcohol and Drug Abuse Patient Records regulations: The Federal rules restrict any use of the information to criminally investigate or prosecute any alcohol or drug abuse patient.[facility] [place] [facility]In the event this information is protected by the Federal Confidentiality of Alcohol and Drug Abuse Patient Records regulations: The Federal rules restrict any use of the information to criminally investigate or prosecute any alcohol or drug abuse patient.[facility] [place] [facility]In the event this information is protected by the Federal Confidentiality of Alcohol and Drug Abuse Patient Records regulations: The Federal rules restrict any use of the information to criminally investigate or prosecute any alcohol or drug abuse patient.[facility] [place] [facility]In the event this information is protected by the Federal Confidentiality of Alcohol and Drug Abuse Patient Records regulations: The Federal rules restrict any use of the information to criminally investigate or prosecute any alcohol or drug abuse patient.[facility] [place] [facility]In the event this information is protected by the Federal Confidentiality of Alcohol and Drug Abuse Patient Records regulations: The Federal rules restrict any use of the information to criminally investigate or prosecute any alcohol or drug abuse patient.[facility] [place] [facility]In the event this information is protected by the Federal Confidentiality of Alcohol and Drug Abuse Patient Records regulations: The Federal rules restrict any use of the information to criminally investigate or prosecute any alcohol or drug abuse patient.[facility] [place] [facility]In the event this information is protected by the Federal Confidentiality of Alcohol and Drug Abuse Patient Records regulations: The Federal rules restrict any use of the information to criminally investigate or prosecute any alcohol or drug abuse patient.[facility] [place] [facility]In the event this information is protected by the Federal Confidentiality of Alcohol and Drug Abuse Patient Records regulations: The Federal rules restrict any use of the information to criminally investigate or prosecute any alcohol or drug abuse patient.[facility] [place] [facility]In the event this information is protected by the Federal Confidentiality of Alcohol and Drug Abuse Patient Records regulations: The Federal rules restrict any use of the information to criminally investigate or prosecute any alcohol or drug abuse patient.[facility] [place] [facility]In the event this information is protected by the Federal Confidentiality of Alcohol and Drug Abuse Patient Records regulations: The Federal rules restrict any use of the information to criminally investigate or prosecute any alcohol or drug abuse patient.[facility] [place] [facility]In the event this information is protected by the Federal Confidentiality of Alcohol and Drug Abuse Patient Records regulations: The Federal rules restrict any use of the information to criminally investigate or prosecute any alcohol or drug abuse patient.[facility] [place] [facility]In the event this information is protected by the Federal Confidentiality of Alcohol and Drug Abuse Patient Records regulations: The Federal rules restrict any use of the information to criminally investigate or prosecute any alcohol or drug abuse patient.[facility] [place] [facility]In the event this information is protected by the Federal Confidentiality of Alcohol and Drug Abuse Patient Records regulations: The Federal rules restrict any use of the information to criminally investigate or prosecute any alcohol or drug abuse patient.[facility] [place] [facility]In the event this information is protected by the Federal Confidentiality of Alcohol and Drug Abuse Patient Records regulations: The Federal rules restrict any use of the information to criminally investigate or prosecute any alcohol or drug abuse patient.[facility] [place] [facility]In the event this information is protected by the Federal Confidentiality of Alcohol and Drug Abuse Patient Records regulations: The Federal rules restrict any use of the information to criminally investigate or prosecute any alcohol or drug abuse patient.[facility] [place] [facility]In the event this information is protected by the Federal Confidentiality of Alcohol and Drug Abuse Patient Records regulations: The Federal rules restrict any use of the information to criminally investigate or prosecute any alcohol or drug abuse patient.[facility] [place] [facility]In the event this information is protected by the Federal Confidentiality of Alcohol and Drug Abuse Patient Records regulations: The Federal rules restrict any use of the information to criminally investigate or prosecute any alcohol or drug abuse patient.[facility] [place] [facility]In the event this information is protected by the Federal Confidentiality of Alcohol and Drug Abuse Patient Records regulations: The Federal rules restrict any use of the information to criminally investigate or prosecute any alcohol or drug abuse patient.[facility] [place] [facility]In the event this information is protected by the Federal Confidentiality of Alcohol and Drug Abuse Patient Records regulations: The Federal rules restrict any use of the information to criminally investigate or prosecute any alcohol or drug abuse patient.[facility] [place] [facility]In the event this information is protected by the Federal Confidentiality of Alcohol and Drug Abuse Patient Records regulations: The Federal rules restrict any use of the information to criminally investigate or prosecute any alcohol or drug abuse patient.[facility] [place] [facility]In the event this information is protected by the Federal Confidentiality of Alcohol and Drug Abuse Patient Records regulations: The Federal rules restrict any use of the information to criminally investigate or prosecute any alcohol or drug abuse patient.[facility] [place] [facility]In the event this information is protected by the Federal Confidentiality of Alcohol and Drug Abuse Patient Records regulations: The Federal rules restrict any use of the information to criminally investigate or prosecute any alcohol or drug abuse patient.[facility] [place] [facility]In the event this information is protected by the Federal Confidentiality of Alcohol and Drug Abuse Patient Records regulations: The Federal rules restrict any use of the information to criminally investigate or prosecute any alcohol or drug abuse patient.[facility] [place] [facility]In the event this information is protected by the Federal Confidentiality of Alcohol and Drug Abuse Patient Records regulations: The Federal rules restrict any use of the information to criminally investigate or prosecute any alcohol or drug abuse patient.[facility] [place] [facility]In the event this information is protected by the Federal Confidentiality of Alcohol and Drug Abuse Patient Records regulations: The Federal rules restrict any use of the information to criminally investigate or prosecute any alcohol or drug abuse patient.[facility] [place] [facility]In the event this information is protected by the Federal Confidentiality of Alcohol and Drug Abuse Patient Records regulations: The Federal rules restrict any use of the information to criminally investigate or prosecute any alcohol or drug abuse patient.[facility] [place] [facility]In the event this information is protected by the Federal Confidentiality of Alcohol and Drug Abuse Patient Records regulations: The Federal rules restrict any use of the information to criminally investigate or prosecute any alcohol or drug abuse patient.[facility] [place] [facility]In the event this information is protected by the Federal Confidentiality of Alcohol and Drug Abuse Patient Records regulations: The Federal rules restrict any use of the information to criminally investigate or prosecute any alcohol or drug abuse patient.[facility] [place] [facility]In the event this information is protected by the Federal Confidentiality of Alcohol and Drug Abuse Patient Records regulations: The Federal rules restrict any use of the information to criminally investigate or prosecute any alcohol or drug abuse patient.[facility] [place] [facility]In the event this information is protected by the Federal Confidentiality of Alcohol and Drug Abuse Patient Records regulations: The Federal rules restrict any use of the information to criminally investigate or prosecute any alcohol or drug abuse patient.[facility] [place] [facility]In the event this information is protected by the Federal Confidentiality of Alcohol and Drug Abuse Patient Records regulations: The Federal rules restrict any use of the information to criminally investigate or prosecute any alcohol or drug abuse patient.[facility] [place] [facility]In the event this information is protected by the Federal Confidentiality of Alcohol and Drug Abuse Patient Records regulations: The Federal rules restrict any use of the information to criminally investigate or prosecute any alcohol or drug abuse patient.[facility] [place] [facility]In the event this information is protected by the Federal Confidentiality of Alcohol and Drug Abuse Patient Records regulations: The Federal rules restrict any use of the information to criminally investigate or prosecute any alcohol or drug abuse patient.[facility] [place] [facility]In the event this information is protected by the Federal Confidentiality of Alcohol and Drug Abuse Patient Records regulations: The Federal rules restrict any use of the information to criminally investigate or prosecute any alcohol or drug abuse patient.[facility] [place] [facility]In the event this information is protected by the Federal Confidentiality of Alcohol and Drug Abuse Patient Records regulations: The Federal rules restrict any use of the information to criminally investigate or prosecute any alcohol or drug abuse patient.[facility] [place] [facility]In the event this information is protected by the Federal Confidentiality of Alcohol and Drug Abuse Patient Records regulations: The Federal rules restrict any use of the information to criminally investigate or prosecute any alcohol or drug abuse patient.[facility] [place] [facility]In the event this information is protected by the Federal Confidentiality of Alcohol and Drug Abuse Patient Records regulations: The Federal rules restrict any use of the information to criminally investigate or prosecute any alcohol or drug abuse patient.[facility] [place] [facility]In the event this information is protected by the Federal Confidentiality of Alcohol and Drug Abuse Patient Records regulations: The Federal rules restrict any use of the information to criminally investigate or prosecute any alcohol or drug abuse patient.[facility] [place] [facility]In the event this information is protected by the Federal Confidentiality of Alcohol and Drug Abuse Patient Records regulations: The Federal rules restrict any use of the information to criminally investigate or prosecute any alcohol or drug abuse patient.[facility] [place] [facility]In the event this information is protected by the Federal Confidentiality of Alcohol and Drug Abuse Patient Records regulations: The Federal rules restrict any use of the information to criminally investigate or prosecute any alcohol or drug abuse patient.[facility] [place] [facility]In the event this information is protected by the Federal Confidentiality of Alcohol and Drug Abuse Patient Records regulations: The Federal rules restrict any use of the information to criminally investigate or prosecute any alcohol or drug abuse patient.[facility] [place] [facility]In the event this information is protected by the Federal Confidentiality of Alcohol and Drug Abuse Patient Records regulations: The Federal rules restrict any use of the information to criminally investigate or prosecute any alcohol or drug abuse patient.[facility] [place] [facility]In the event this information is protected by the Federal Confidentiality of Alcohol and Drug Abuse Patient Records regulations: The Federal rules restrict any use of the information to criminally investigate or prosecute any alcohol or drug abuse patient.[facility] [place] [facility]In the event this information is protected by the Federal Confidentiality of Alcohol and Drug Abuse Patient Records regulations: The Federal rules restrict any use of the information to criminally investigate or prosecute any alcohol or drug abuse patient.[facility] [place] [facility]In the event this information is protected by the Federal Confidentiality of Alcohol and Drug Abuse Patient Records regulations: The Federal rules restrict any use of the information to criminally investigate or prosecute any alcohol or drug abuse patient.[facility] [place] [facility]In the event this information is protected by the Federal Confidentiality of Alcohol and Drug Abuse Patient Records regulations: The Federal rules restrict any use of the information to criminally investigate or prosecute any alcohol or drug abuse patient.[facility] [place] [facility]In the event this information is protected by the Federal Confidentiality of Alcohol and Drug Abuse Patient Records regulations: The Federal rules restrict any use of the information to criminally investigate or prosecute any alcohol or drug abuse patient.[facility] [place] [facility]In the event this information is protected by the Federal Confidentiality of Alcohol and Drug Abuse Patient Records regulations: The Federal rules restrict any use of the information to criminally investigate or prosecute any alcohol or drug abuse patient.[facility] [place] [facility]In the event this information is protected by the Federal Confidentiality of Alcohol and Drug Abuse Patient Records regulations: The Federal rules restrict any use of the information to criminally investigate or prosecute any alcohol or drug abuse patient.[facility] [place] [facility]In the event this information is protected by the Federal Confidentiality of Alcohol and Drug Abuse Patient Records regulations: The Federal rules restrict any use of the information to criminally investigate or prosecute any alcohol or drug abuse patient.[facility] [place] [facility]In the event this information is protected by the Federal Confidentiality of Alcohol and Drug Abuse Patient Records regulations: The Federal rules restrict any use of the information to criminally investigate or prosecute any alcohol or drug abuse patient.[facility] [place] [facility]In the event this information is protected by the Federal Confidentiality of Alcohol and Drug Abuse Patient Records regulations: The Federal rules restrict any use of the information to criminally investigate or prosecute any alcohol or drug abuse patient.[facility] [place] [facility]In the event this information is protected by the Federal Confidentiality of Alcohol and Drug Abuse Patient Records regulations: The Federal rules restrict any use of the information to criminally investigate or prosecute any alcohol or drug abuse patient.[facility] [place] [facility]In the event this information is protected by the Federal Confidentiality of Alcohol and Drug Abuse Patient Records regulations: The Federal rules restrict any use of the information to criminally investigate or prosecute any alcohol or drug abuse patient.[facility] [place] [facility]In the event this information is protected by the Federal Confidentiality of Alcohol and Drug Abuse Patient Records regulations: The Federal rules restrict any use of the information to criminally investigate or prosecute any alcohol or drug abuse patient.[facility] [place] [facility]In the event this information is protected by the Federal Confidentiality of Alcohol and Drug Abuse Patient Records regulations: The Federal rules restrict any use of the information to criminally investigate or prosecute any alcohol or drug abuse patient.[facility] [place] [facility]In the event this information is protected by the Federal Confidentiality of Alcohol and Drug Abuse Patient Records regulations: The Federal rules restrict any use of the information to criminally investigate or prosecute any alcohol or drug abuse patient.[facility] [place] [facility]In the event this information is protected by the Federal Confidentiality of Alcohol and Drug Abuse Patient Records regulations: The Federal rules restrict any use of the information to criminally investigate or prosecute any alcohol or drug abuse patient.[facility] [place] [facility]In the event this information is protected by the Federal Confidentiality of Alcohol and Drug Abuse Patient Records regulations: The Federal rules restrict any use of the information to criminally investigate or prosecute any alcohol or drug abuse patient.[facility] [place] [facility]In the event this information is protected by the Federal Confidentiality of Alcohol and Drug Abuse Patient Records regulations: The Federal rules restrict any use of the information to criminally investigate or prosecute any alcohol or drug abuse patient.[facility] [place] [facility]In the event this information is protected by the Federal Confidentiality of Alcohol and Drug Abuse Patient Records regulations: The Federal rules restrict any use of the information to criminally investigate or prosecute any alcohol or drug abuse patient.[facility] [place] [facility]In the event this information is protected by the Federal Confidentiality of Alcohol and Drug Abuse Patient Records regulations: The Federal rules restrict any use of the information to criminally investigate or prosecute any alcohol or drug abuse patient.[facility] [place] [facility]In the event this information is protected by the Federal Confidentiality of Alcohol and Drug Abuse Patient Records regulations: The Federal rules restrict any use of the information to criminally investigate or prosecute any alcohol or drug abuse patient.[facility] [place] [facility]In the event this information is protected by the Federal Confidentiality of Alcohol and Drug Abuse Patient Records regulations: The Federal rules restrict any use of the information to criminally investigate or prosecute any alcohol or drug abuse patient.[facility] [place] [facility]In the event this information is protected by the Federal Confidentiality of Alcohol and Drug Abuse Patient Records regulations: The Federal rules restrict any use of the information to criminally investigate or prosecute any alcohol or drug abuse patient.[facility] [place] [facility]In the event this information is protected by the Federal Confidentiality of Alcohol and Drug Abuse Patient Records regulations: The Federal rules restrict any use of the information to criminally investigate or prosecute any alcohol or drug abuse patient.[facility] [place] [facility]In the event this information is protected by the Federal Confidentiality of Alcohol and Drug Abuse Patient Records regulations: The Federal rules restrict any use of the information to criminally investigate or prosecute any alcohol or drug abuse patient.[facility] [place] [facility]In the event this information is protected by the Federal Confidentiality of Alcohol and Drug Abuse Patient Records regulations: The Federal rules restrict any use of the information to criminally investigate or prosecute any alcohol or drug abuse patient.[facility] [place] [facility]In the event this information is protected by the Federal Confidentiality of Alcohol and Drug Abuse Patient Records regulations: The Federal rules restrict any use of the information to criminally investigate or prosecute any alcohol or drug abuse patient.[facility] [place] [facility]In the event this information is protected by the Federal Confidentiality of Alcohol and Drug Abuse Patient Records regulations: The Federal rules restrict any use of the information to criminally investigate or prosecute any alcohol or drug abuse patient.[facility] [place] [facility]In the event this information is protected by the Federal Confidentiality of Alcohol and Drug Abuse Patient Records regulations: The Federal rules restrict any use of the information to criminally investigate or prosecute any alcohol or drug abuse patient.[facility] [place] [facility]In the event this information is protected by the Federal Confidentiality of Alcohol and Drug Abuse Patient Records regulations: The Federal rules restrict any use of the information to criminally investigate or prosecute any alcohol or drug abuse patient.[facility] [place] [facility]In the event this information is protected by the Federal Confidentiality of Alcohol and Drug Abuse Patient Records regulations: The Federal rules restrict any use of the information to criminally investigate or prosecute any alcohol or drug abuse patient.[facility] [place] [facility]In the event this information is protected by the Federal Confidentiality of Alcohol and Drug Abuse Patient Records regulations: The Federal rules restrict any use of the information to criminally investigate or prosecute any alcohol or drug abuse patient.[facility] [place] [facility]In the event this information is protected by the Federal Confidentiality of Alcohol and Drug Abuse Patient Records regulations: The Federal rules restrict any use of the information to criminally investigate or prosecute any alcohol or drug abuse patient.[facility] [place] [facility]In the event this information is protected by the Federal Confidentiality of Alcohol and Drug Abuse Patient Records regulations: The Federal rules restrict any use of the information to criminally investigate or prosecute any alcohol or drug abuse patient.[facility]In the event this information is protected by the Federal Confidentiality of Alcohol and Drug Abuse Patient Records regulations: The Federal rules restrict any use of the information to criminally investigate or prosecute any alcohol or drug abuse patient.[facility] EastIn the event this information is protected by the Federal Confidentiality of Alcohol and Drug Abuse Patient Records regulations: The Federal rules restrict any use of the information to criminally investigate or prosecute any alcohol or drug abuse patient.[facility] EastIn the event this information is protected by the Federal Confidentiality of Alcohol and Drug Abuse Patient Records regulations: The Federal rules restrict any use of the information to criminally investigate or prosecute any alcohol or drug abuse patient.[facility] EastIn the event this information is protected by the Federal Confidentiality of Alcohol and Drug Abuse Patient Records regulations: The Federal rules restrict any use of the information to criminally investigate or prosecute any alcohol or drug abuse patient.[facility] EastIn the event this information is protected by the Federal Confidentiality of Alcohol and Drug Abuse Patient Records regulations: The Federal rules restrict any use of the information to criminally investigate or prosecute any alcohol or drug abuse patient.[facility] EastIn the event this information is protected by the Federal Confidentiality of Alcohol and Drug Abuse Patient Records regulations: The Federal rules restrict any use of the information to criminally investigate or prosecute any alcohol or drug abuse patient.[facility] EastIn the event this information is protected by the Federal Confidentiality of Alcohol and Drug Abuse Patient Records regulations: The Federal rules restrict any use of the information to criminally investigate or prosecute any alcohol or drug abuse patient.[facility] EastIn the event this information is protected by the Federal Confidentiality of Alcohol and Drug Abuse Patient Records regulations: The Federal rules restrict any use of the information to criminally investigate or prosecute any alcohol or drug abuse patient.[facility] EastIn the event this information is protected by the Federal Confidentiality of Alcohol and Drug Abuse Patient Records regulations: The Federal rules restrict any use of the information to criminally investigate or prosecute any alcohol or drug abuse patient.[facility] EastIn the event this information is protected by the Federal Confidentiality of Alcohol and Drug Abuse Patient Records regulations: The Federal rules restrict any use of the information to criminally investigate or prosecute any alcohol or drug abuse patient.[facility] EastIn the event this information is protected by the Federal Confidentiality of Alcohol and Drug Abuse Patient Records regulations: The Federal rules restrict any use of the information to criminally investigate or prosecute any alcohol or drug abuse patient.[facility] EastIn the event this information is protected by the Federal Confidentiality of Alcohol and Drug Abuse Patient Records regulations: The Federal rules restrict any use of the information to criminally investigate or prosecute any alcohol or drug abuse patient.[facility] EastIn the event this information is protected by the Federal Confidentiality of Alcohol and Drug Abuse Patient Records regulations: The Federal rules restrict any use of the information to criminally investigate or prosecute any alcohol or drug abuse patient.[facility] EastIn the event this information is protected by the Federal Confidentiality of Alcohol and Drug Abuse Patient Records regulations: The Federal rules restrict any use of the information to criminally investigate or prosecute any alcohol or drug abuse patient.[facility] EastIn the event this information is protected by the Federal Confidentiality of Alcohol and Drug Abuse Patient Records regulations: The Federal rules restrict any use of the information to criminally investigate or prosecute any alcohol or drug abuse patient.[facility] EastIn the event this information is protected by the Federal Confidentiality of Alcohol and Drug Abuse Patient Records regulations: The Federal rules restrict any use of the information to criminally investigate or prosecute any alcohol or drug abuse patient.[facility] EastIn the event this information is protected by the Federal Confidentiality of Alcohol and Drug Abuse Patient Records regulations: The Federal rules restrict any use of the information to criminally investigate or prosecute any alcohol or drug abuse patient.[facility] EastIn the event this information is protected by the Federal Confidentiality of Alcohol and Drug Abuse Patient Records regulations: The Federal rules restrict any use of the information to criminally investigate or prosecute any alcohol or drug abuse patient.[facility] EastIn the event this information is protected by the Federal Confidentiality of Alcohol and Drug Abuse Patient Records regulations: The Federal rules restrict any use of the information to criminally investigate or prosecute any alcohol or drug abuse patient.[facility] EastIn the event this information is protected by the Federal Confidentiality of Alcohol and Drug Abuse Patient Records regulations: The Federal rules restrict any use of the information to criminally investigate or prosecute any alcohol or drug abuse patient.[facility] EastIn the event this information is protected by the Federal Confidentiality of Alcohol and Drug Abuse Patient Records regulations: The Federal rules restrict any use of the information to criminally investigate or prosecute any alcohol or drug abuse patient.[facility] EastIn the event this information is protected by the Federal Confidentiality of Alcohol and Drug Abuse Patient Records regulations: The Federal rules restrict any use of the information to criminally investigate or prosecute any alcohol or drug abuse patient.[facility] EastIn the event this information is protected by the Federal Confidentiality of Alcohol and Drug Abuse Patient Records regulations: The Federal rules restrict any use of the information to criminally investigate or prosecute any alcohol or drug abuse patient.[facility] Reason for Visit (unrecogniz ed section and content) Reason Comments New [facility] at [facility] CHF and a-fib Specialty Diagnoses / Procedures Referred By Gilbert t Referred To Contact Gastroenterology Diagnoses Transaminitis Procedures CONSULT TO GASTROENTEROLOGY OFFICE/OUTPATIENT NEW HIGH MDM 60 MINUTES Anastasiia Colón APRN.CERTIFIED JUVENILE PROBATION OFFICER [address] [place] [address] [address] [place] [address] Referral ID Status Reason Start Date Expiration Date Visits Requested Visits Authorized [id number] Authorized PCP Requested Referral 10/12/2023 05/01/2024 99 99 Reason Comments Established Patient Specialty Diagnoses / Procedures Referred By Gilbert t Referred To Contact Peripheral Vascular / VASCULAR SURGERY Diagnoses Follow-up exam 6 MONTH FOLLOW UP WITH CAROTID TESTING Procedures OFFICE/OUTPATIENT ESTABLISHED SF MDM 10 MIN OFFICE/OUTPATIENT ESTABLISHED LOW MDM 20 MIN OFFICE/OUTPATIENT ESTABLISHED MOD MDM 30 MIN OFFICE/OUTPATIENT ESTABLISHED HIGH MDM 40 MIN EST PATIENT Kierra Santiago MD [address] [place] [address] Mary Kay Delgado, DO [address] [place] [address] Referral ID Status Reason Start Date Expiration Date V isits Requested Visits Authorized [id number] Authorized 09/13/2023 05/01/2024 99 99 Reason Comments Follow Up Specialty Diagnoses / Procedures Referred By Contac t Referred To Contact Vascular Surgery / VASCULAR SURGERY Diagnoses Carotid stenosis, asymptomatic, bilateral 3 MONTH FOLLOW UP WIHT CAROTID TESTING Procedures OFFICE/OUTPATIENT ESTABLISHED HIGH MDM 40-54 MIN EST PATIENT Kailee Johnson MD [address] [place] [address] Kailee Johnson MD [facility] [place] [address] Referral ID Status Reason Start Date Expiration Date V isits Requested Visits Authorized [id number] Authorized 03/01/2023 05/01/2023 99 99 Reason Comments Establish Care Reason Comments Results Reason Comments Anticoagulation Reason Comments Results Carotid ultrasound Reason Comments Patient Question Anticoagulation Reason Comments Established Patient Specialty Diagnoses / Procedures Referred By Contac t Referred To Contact Vascular Surgery Diagnoses Stenosis of carotid artery, unspecified laterality History of carotid endarterectomy History of transient ischemic attack (TIA) Stenosis of left carotid artery Procedures CONSULT TO VASCULAR SURGERY OFFICE/OUTPATIENT NEW HIGH MDM 60-74 MINUTES Anastasiia Colón, EDGE KITTER.CERTIFIED JUVENILE PROBATION OFFICER [address] [place] [address] Referral ID Status Reason Start Date Expiration Date V isits Requested Visits Authorized [id number] Closed PCP Requested Referral 08/10/2022 08/10/2023 1 1 Specialty Diagnoses / Procedures Referred By Contac t Referred To Contact Vascular Surgery / VASCULAR SURGERY Diagnoses carotid endart / dr delgado referral Procedures OFFICE/OUTPATIENT ESTABLISHED HIGH MDM 40-54 MIN EST PATIENT Mary Kay Delgado, DO [address] [address] Kailee Johnson MD [address] [place] [address] Referral ID Status Reason Start Date Expiration Date Visits Re quested Visits Authorized [id number] Closed 11/10/2022 05/01/2023 1 1 Reason Onset Date Comments Allied Health Visit 12/02/2022 Medication A dherence Outreach Reason Comments Patient Question Her 3 mo appointment Reason Onset Date Comments Refill Request 12/20/2022 Reason Comments F/U Diabetes 3 Month Reason Comments Refill Request Reason Onset Date Comments F/U 6 months Immunizations 02/04/2023 Flu vaccination Reason Comments Info for diabetic shoes Reason Comments Radiology CT Specialty Diagnoses / Procedures Referred By Contac t Referred To Contact CT IMAGING Diagnoses Lung nodules Procedures CT CHEST WO IVCON DIAGNOSTIC COMPUTED TOMOGRAPHY THORAX W/O CNTRST Mary Kay Delgado, DO [address] [place] [address] [facility] [place] [address] Referral ID Status Reason Start Date Expiration Date V isits Requested Visits Authorized [id number] Closed Auto-Generate d Referral 11/08/2022 12/08/2023 [address] Specialty Diagnoses / Procedures Referred By Contac t Referred To Contact CT IMAGING Diagnoses Occlusion and stenosis of unspecified carotid artery Procedures CTA NECK W IVCON CT ANGIOGRAPHY NECK W/CONTRAST/NONCONTRAST Mary Kay Delgado, DO [address] [place] [address] [facility] [place] [address] Referral ID Status Reason Start Date Expiration Date V isits Requested Visits Authorized [id number] Closed Auto-Generate d Referral 09/21/2022 10/21/2023 1 1 Reason Comments Pain, Sinus Reason Onset Date Comments Refill Request 07/14/2023 Reason Comments Orders protime Reason Onset Date Comments Refill Request 10/05/2023 Reason Comments high blood sugars Specialty Diagnoses / Procedures Referred By Contac t Referred To Contact Diagnoses Uncontrolled type 2 diabetes mellitus with hyperglycemia (HCC) Procedures CONSULT TO DIABETES EDUCATION DSME/MNT MEDICAL NUTRITION ASSMT&IVNTJ INDIV EACH 15 TX MEDICAL NUTRITION ASSMT&IVNTJ INDIV EACH 15 TX MEDICAL NUTRITION ASSMT&IVNTJ INDIV EACH 15 TX MEDICAL NUTRITION ASSMT&IVNTJ INDIV EACH 15 [place] Anastasiia Colón, EDGE KITTER.[facility] [address] [place] [address] [address] [place] [address] Referral ID Status Reason Start Date Expiration Date V isits Requested Visits Authorized [id number] Closed PCP Requested Referral 10/12/2023 05/01/2024 1 1 Reason Comments Patient Update Reason Comments Radiology CT Specialty Diagnoses / Procedures Referred By Contac t Referred To Contact CT IMAGING Diagnoses Lung nodules Procedures CT CHEST WO IVCON DIAGNOSTIC COMPUTED TOMOGRAPHY THORAX W/O CNTRST Anastasiia Colón, EDGE KITTER.CERTIFIED JUVENILE PROBATION OFFICER [address] [place] [address] [place] [address] Referral ID Status Reason Start Date Expiration Date V isits Requested Visits Authorized [id number] Closed Auto-Generate d Referral 05/02/2023 05/01/2024 1 1 Reason Onset Date Comments Refill Request 11/04/2023 Reason Comments Follow Up Reason Comments Gas Had 2 episodes of ch est tightness Reason Comments Radiology US Specialty Diagnoses / Procedures Referred By Contac t Referred To Contact US IMAGING Diagnoses Elevated alanine aminotransferase (ALT) level Procedures US ABD RIGHT UPPER QUADRANT US ABDOMINAL REAL TIME W/IMAGE LIMITED Joelle Barreto, EDGE KITTER.REPORT SPECIALIST [address] [place] [address] [place] [address] Referral ID Status Reason Start Date Expiration Date V isits Requested Visits Authorized [id number] Closed Auto-Generate d Referral 11/18/2023 12/17/2024 1 1 Reason Comments Sinus Problem bodyaches, nausea, d iarrhea x 1 day Reason Comments Labs needed? Reason Onset Date Comments Refill Request 12/30/2023 Reason Onset Date Comments Transition Of Care 01/14/2024 Reason Comments Home Health Orders Reason Comments [facility] PT POC Reason Comments Home Health Point of Care Results Reason Comments Hospital F/U Reason Comments F/U 3 Month Labs prior Reason Comments Hospital F/U Reason Comments Home Care Management Reason Comments Question Reason Comments Orders Reason Comments Physical Therapy Plan of Care Reason Comments [facility] HH - INR message Reason Comments [facility] HH certificate plan of care 04/09/24 Reason Comments Established Patient Specialty Diagnoses / Procedures Referred By Contac t Referred To Contact Peripheral Vascular / VASCULAR SURGERY Diagnoses Encounter for follow-up examination after completed treatment for conditions other than malignant neoplasm follow up after testing Procedures OFFICE/OUTPATIENT ESTABLISHED HIGH MDM 40 MIN EST PATIENT Mary Kay Delgado, DO [address] [place] [address] Mary Kay Delgado, DO [address] [place] [address] Referral ID Status Reason Start Date Expiration Date V isits Requested Visits Authorized [id number] Authorized 05/04/2024 05/01/2025 99 99 Reason Comments Patient Update Anticoagulation Reason Comments Hypertension Reason Onset Date Comments Refill Request 05/14/2024 Reason Onset Date Comments Symptoms 05/14/2024 Reason Onset Date Comments Refill Request 05/03/2024 SEE RX NOTES Reason Comments Appointment Reason Comments Follow Up discuss carotid ultr asound results Reason Onset Date Comments Refill Request 06/28/2024 Reason Onset Date Comments Home Care 07/11/2024 Reason Onset Date Comments Refill Request 07/17/2024 Reason Comments Orders poc protime Reason Onset Date Comments Refill Request 08/06/2024 Care Teams (unrecognized sec tion and content) Nurse Sitter Relationship Specialty Start Date End Date Kierra Santiago MD [facility] [place], [place] [address] PCP - General Internal Medicine 07/01/22 Nurse Sitter Relationship Specialty Start Date End Date Kierra Santiago MD [facility] [place], [place] [address] PCP - General Internal Medicine 07/01/22 Nurse Sitter Relationship Specialty Start Date End Date Kierra Santiago MD [address] [place], [place] [address] PCP - General Internal Medicine 07/01/22 Nurse Sitter Relationship Specialty Start Date End Date Kierra Santiago MD [facility] [place], [place] [address] PCP - General Internal Medicine 07/01/22 Nurse Sitter Relationship Specialty Start Date End Date Kierra Santiago MD [address] [facility] [place] [address] PCP - General Internal Medicine 07/01/22 Nurse Sitter Relationship Specialty Start Date End Date Kierra Santiago MD [address] [facility] [place] [address] PCP - General Internal Medicine 07/01/22 Nurse Sitter Relationship Specialty Start Date End Date Kierra Santiago MD [address] [facility] [place] [address] PCP - General Internal Medicine 07/01/22 Nurse Sitter Relationship Specialty Start Date End Date Kierra Santiago MD [address] [facility] [address] PCP - General Internal Medicine 07/01/22 Nurse Sitter Relationship Specialty Start Date End Date Kierra Santiago MD [address] [facility] [place] [address] PCP - General Internal Medicine 07/01/22 Nurse Sitter Relationship Specialty Start Date End Date Kierra Santiago MD [address] [facility] [place] [address] PCP - General Internal Medicine 07/01/22 Nurse Sitter Relationship Specialty Start Date End Date Kierra Santiago MD [address] [facility] [place] [address] PCP - General Internal Medicine 07/01/22 Nurse Sitter Relationship Specialty Start Date End Date Kierra Santiago MD [address] [facility] [place] [address] PCP - General Internal Medicine 07/01/22 Nurse Sitter Relationship Specialty Start Date End Date Kierra Santiago MD [address] [place] [address] PCP - General Internal Medicine 07/01/22 Nurse Sitter Relationship Specialty Start Date End Date Kierra Santiago MD [address] [place] [address] PCP - General Internal Medicine 07/01/22 Nurse Sitter Relationship Specialty Start Date End Date Kierra Santiago MD [address] [place] [address] PCP - General Internal Medicine 07/01/22 Nurse Sitter Relationship Specialty Start Date End Date Kierra Santiago MD [address] [place] [address] PCP - General Internal Medicine 07/01/22 Nurse Sitter Relationship Specialty Start Date End Date Kierra Santiago MD [address] [place] [address] PCP - General Internal Medicine 07/01/22 Nurse Sitter Relationship Specialty Start Date End Date Kierra Santiago MD [address] [place] [address] PCP - General Internal Medicine 07/01/22 Nurse Sitter Relationship Specialty Start Date End Date Kierra Santiago MD [address] [place] [address] PCP - General Internal Medicine 07/01/22 Nurse Sitter Relationship Specialty Start Date End Date Kierra Santiago MD [address] [place] [address] PCP - General Internal Medicine 07/01/22 Nurse Sitter Relationship Specialty Start Date End Date Kierra Santiago MD [address] [facility] [place] [address] PCP - General Internal Medicine 07/01/22 Nurse Sitter Relationship Specialty Start Date End Date Kierra Santiago MD [address] [facility] [place] [address] PCP - General Internal Medicine 07/01/22 Nurse Sitter Relationship Specialty Start Date End Date Kierra Santiago MD [address] [facility] [place] [address] PCP - General Internal Medicine 07/01/22 Nurse Sitter Relationship Specialty Start Date End Date Kierra Santiago MD [address] [facility] [address] PCP - General Internal Medicine 07/01/22 Nurse Sitter Relationship Specialty Start Date End Date Kierra Santiago MD [address] [facility] [address] PCP - General Internal Medicine 07/01/22 Nurse Sitter Relationship Specialty Start Date End Date Kierra Santiago MD [address] [facility] [address] PCP - General Internal Medicine 07/01/22 Nurse Sitter Relationship Specialty Start Date End Date Kierra Santiago MD [address] [facility] [address] PCP - General Internal Medicine 07/01/22 Nurse Sitter Relationship Specialty Start Date End Date Kierra Santiago MD [address] [facility] [address] PCP - General Internal Medicine 07/01/22 Nurse Sitter Relationship Specialty Start Date End Date Kierra Santiago MD [address] [place] [address] PCP - General Internal Medicine 07/01/22 Nurse Sitter Relationship Specialty Start Date End Date Kierra Santiago MD [address] [facility] [address] PCP - General Internal Medicine 07/01/22 Nurse Sitter Relationship Specialty Start Date End Date Kierra Santiago MD [address] [place] [address] PCP - General Internal Medicine 07/01/22 Nurse Sitter Relationship Specialty Start Date End Date Kierra Santiago MD [address] [place] [address] PCP - General Internal Medicine 07/01/22 Nurse Sitter Relationship Specialty Start Date End Date Kierra Santiago MD [address] [place] [address] PCP - General Internal Medicine 07/01/22 Nurse Sitter Relationship Specialty Start Date End Date Kierra Santiago MD [address] [facility] [address] PCP - General Internal Medicine 07/01/22 Nurse Sitter Relationship Specialty Start Date End Date Kierra Santiago MD [address] [place] [address] PCP - General Internal Medicine 07/01/22 Nurse Sitter Relationship Specialty Start Date End Date Kierra Santiago MD [address] [place] [address] PCP - General Internal Medicine 07/01/22 Nurse Sitter Relationship Specialty Start Date End Date Kierra Santiago MD [address] [place] [address] PCP - General Internal Medicine 07/01/22 Nurse Sitter Relationship Specialty Start Date End Date Kierra Santiago MD [address] [place] [address] PCP - General Internal Medicine 07/01/22 Nurse Sitter Relationship Specialty Start Date End Date Kierra Santiago MD [address] [place] [address] PCP - General Internal Medicine 07/01/22 Nurse Sitter Relationship Specialty Start Date End Date Kierra Santiago MD [address] [place] [address] PCP - General Internal Medicine 07/01/22 Nurse Sitter Relationship Specialty Start Date End Date Kierra Santiago MD [address] [place] [address] PCP - General Internal Medicine 07/01/22 Nancy Albert, XOCHILT [address] [place] [address] Primary Care Stitch Marker 01/06/24 Nurse Sitter Relationship Specialty Start Date End Date Kierra Santiago MD [address] [place] [address] PCP - General Internal Medicine 07/01/22 Nancy Albert, XOCHILT [address] [place], [place] [address] Primary Care Stitch Marker 01/06/24 Nurse Sitter Relationship Specialty Start Date End Date Kierra Santiago MD [address] [facility] [place] [address] PCP - General Internal Medicine 07/01/22 Nurse Sitter Relationship Specialty Start Date End Date Kierra Santiago MD [address] [place] [address] PCP - General Internal Medicine 07/01/22 Nancy Albert RN [address] [place] [address] Primary Care Stitch Marker 01/06/24 01/23/24 Nurse Sitter Relationship Specialty Start Date End Date Kierra Santiago MD [address] [place] [address] PCP - General Internal Medicine 07/01/22 Nurse Sitter Relationship Specialty Start Date End Date Kierra Santiago MD [address] [place] [address] PCP - General Internal Medicine 07/01/22 Nurse Sitter Relationship Specialty Start Date End Date Kierra Santiago MD [address] [facility] [place] [address] PCP - General Internal Medicine 07/01/22 Anastasiia Colón APRN.CERTIFIED JUVENILE PROBATION OFFICER [address] [facility] [address] Mortgage Loan Funder Internal Medicine 04/09/24 Sheryl Reyes EDGE KITTER.REPORT SPECIALIST [address] [place] [address] Mortgage Loan Funder Internal Medicine 04/09/24 Nurse Sitter Relationship Specialty Start Date End Date Kierra Santiago MD [address] [place] [address] PCP - General Internal Medicine 07/01/22 Anastasiia Colón, EDGE KITTER.CERTIFIED JUVENILE PROBATION OFFICER [address] [place] [address] Mortgage Loan Funder Internal Medicine 04/09/24 Sheryl Reyes EDGE KITTER.REPORT SPECIALIST [address] [place] [address] Mortgage Loan Funder Internal Medicine 04/09/24 Nurse Sitter Relationship Specialty Start Date End Date Kierra Santiago MD [address] [place] [address] PCP - General Internal Medicine 07/01/22 Anastasiia Colón, EDGE KITTER.CERTIFIED JUVENILE PROBATION OFFICER [address] [place] [address] Mortgage Loan Funder Internal Medicine 04/09/24 Sheryl Reyes EDGE KITTER.REPORT SPECIALIST [address] [place] [address] Mortgage Loan Funder Internal Medicine 04/09/24 Nurse Sitter Relationship Specialty Start Date End Date Kierra Santiago MD [address] [place] [address] PCP - General Internal Medicine 07/01/22 Anastasiia Colón, EDGE KITTER.CERTIFIED JUVENILE PROBATION OFFICER [address] [place] [address] Mortgage Loan Funder Internal Medicine 04/09/24 Sheryl Reyes APRN.REPORT SPECIALIST [address] [place] [address] [facility] Internal Medicine 04/09/24 Nurse Sitter Relationship Specialty Start Date End Date Kierra Santiago MD [address] [place] [address] PCP - General Internal Medicine 07/01/22 Anastasiia Colón, EDGE KITTER.CERTIFIED JUVENILE PROBATION OFFICER [address] [place] [address] Mortgage Loan Funder Internal Medicine 04/09/24 Sheryl Reyes EDGE KITTER.REPORT SPECIALIST [address] [place] [address] [facility] Internal Medicine 04/09/24 Nurse Sitter Relationship Specialty Start Date End Date Kierra Santiago MD [address] [place] [address] PCP - General Internal Medicine 07/01/22 Anastasiia Colón, EDGE KITTER.CERTIFIED JUVENILE PROBATION OFFICER [address] [place] [address] [employer] Internal Medicine 04/09/24 Sheryl Reyes EDGE KITTER.REPORT SPECIALIST [address] [place] [address] [employer] Internal Medicine 04/09/24 Nurse Sitter Relationship Specialty Start Date End Date Kierra Santiago MD [address] [place] [address] PCP - General Internal Medicine 07/01/22 Anastasiia Colón, EDGE KITTER.CERTIFIED JUVENILE PROBATION OFFICER [address] [place] [address] [employer] Internal Medicine 04/09/24 Sheryl Reyes EDGE KITTER.REPORT SPECIALIST [address] [place] [address] [employer] Internal Medicine 04/09/24 Nurse Sitter Relationship Specialty Start Date End Date Kierra Santiago MD [address] [place] [address] PCP - General Internal Medicine 07/01/22 Anastasiia Colón, EDGE KITTER.CERTIFIED JUVENILE PROBATION OFFICER [address] [place] [address] [employer] Internal Medicine 04/09/24 Sheryl Reyes EDGE KITTER.REPORT SPECIALIST [address] [place] [address] [facility] Internal Medicine 04/09/24 Nurse Sitter Relationship Specialty Start Date End Date Kierra Santiago MD [address] [place] [address] PCP - General Internal Medicine 07/01/22 Anastasiia Colón, EDGE KITTER.CERTIFIED JUVENILE PROBATION OFFICER [address] [place] [address] [facility] Internal Medicine 04/09/24 Sheryl Reyes EDGE KITTER.REPORT SPECIALIST [address] [place] [address] [facility] Internal Medicine 04/09/24 Nurse Sitter Relationship Specialty Start Date End Date Kierra Santiago MD [address] [facility] [place] [address] PCP - General Internal Medicine 07/01/22 Anastasiia Colón, EDGE KITTER.CERTIFIED JUVENILE PROBATION OFFICER [address] [facility] [place] [address] [employer] Internal Medicine 04/09/24 Sheryl Reyes EDGE KITTER.REPORT SPECIALIST [address] [facility] [place] [address] [employer] Internal Medicine 04/09/24 Nurse Sitter Relationship Specialty Start Date End Date Kierra Santiago MD [address] [facility] [place] [address] PCP - General Internal Medicine 07/01/22 Anastasiia Colón, EDGE KITTER.CERTIFIED JUVENILE PROBATION OFFICER [address] [facility] [place] [address] [employer] Internal Medicine 04/09/24 Sheryl Reyes APRN.REPORT SPECIALIST [address] [facility] [place] [address] [employer] Internal Medicine 04/09/24 Nurse Sitter Relationship Specialty Start Date End Date Kierra Santiago MD [address] [facility] [place] [address] PCP - General Internal Medicine 07/01/22 Anastasiia Colón, EDGE KITTER.CERTIFIED JUVENILE PROBATION OFFICER [address] [facility] [place] [address] [employer] Internal Medicine 04/09/24 Sheryl Reyes EDGE KITTER.REPORT SPECIALIST [address] [facility] [place] [address] [employer] Internal Medicine 04/09/24 Nurse Sitter Relationship Specialty Start Date End Date Kierra Santiago MD [address] [place] [address] PCP - General Internal Medicine 07/01/22 Anastasiia Colón, EDGE KITTER.CERTIFIED JUVENILE PROBATION OFFICER [address] [facility] [place] [address] Mortgage Loan [employer] Internal Medicine 04/09/24 Sheryl Reyes EDGE KITTER.REPORT SPECIALIST [address] [facility] [place] [address] [employer] Internal Medicine 04/09/24 Nurse Sitter Relationship Specialty Start Date End Date Kierra Santiago MD [address] [place] [address] PCP - General Internal Medicine 07/01/22 Anastasiia Colón, EDGE KITTER.CERTIFIED JUVENILE PROBATION OFFICER [address] [facility] [place] [address] [employer] Internal Medicine 04/09/24 Sheryl Reyes EDGE KITTER.REPORT SPECIALIST [address] [place] [address] [employer] Internal Medicine 04/09/24 Nurse Sitter Relationship Specialty Start Date End Date Kierra Santiago MD [address] [facility] [place] [address] PCP - General Internal Medicine 07/01/22 Anastasiia Colón, EDGE KITTER.CERTIFIED JUVENILE PROBATION OFFICER [address] [place] [address] [employer] Internal Medicine 04/09/24 Sheryl Reyes APRN.REPORT SPECIALIST [address] [facility] [address] [facility] Internal Medicine 04/09/24 Nurse Sitter Relationship Specialty Start Date End Date Kierra Santiago MD [address] [place] [address] PCP - General Internal Medicine 07/01/22 Anastasiia Colón, EDGE KITTER.CERTIFIED JUVENILE PROBATION OFFICER [address] [place] [address] [facility] Internal Medicine 04/09/24 Sheryl Reyes EDGE KITTER.REPORT SPECIALIST [address] [place] [address] [facility] Internal Medicine 04/09/24 Nurse Sitter Relationship Specialty Start Date End Date Kierra Santiago MD [address] [place] [address] PCP - General Internal Medicine 07/01/22 Anastasiia Colón, EDGE KITTER.CERTIFIED JUVENILE PROBATION OFFICER [address] [place] [address] [facility] Internal Medicine 04/09/24 Sheryl Reyes EDGE KITTER.REPORT SPECIALIST [address] [place] [address] [facility] Internal Medicine 04/09/24 Nurse Sitter Relationship Specialty Start Date End Date Kierra Santiago MD [address] [place] [address] PCP - General Internal Medicine 07/01/22 Anastasiia Colón, EDGE KITTER.CERTIFIED JUVENILE PROBATION OFFICER [address] [place] [address] [facility] Internal Medicine 04/09/24 Sheryl Reyes, EDGE KITTER.REPORT SPECIALIST [address] [facility] [place] [address] [facility] Internal [facility] 04/09/24 Team Status: Active Member Role Status Dates Dr. Kierra Santiago MD Primary Care Provider Active Team Status: Inactive Member Role Status Dates Dr. Kierra Santiago MD Primary Care Provider Active Start: March 19, 2024 End: April 08, 2024 Dr. Jasno Smith MD Admit Provider Active Star t: March 19, 2024 End: April 08, 2024 Dr. Jason Smith MD Attending Provider Active Start: March 19, 2024 End: April 08, 2024 Dr. Jason Smith MD Referring Provider Active Start: March 19, 2024 End: April 08, 2024 Dr. Eugene Blanca DPM Other Provider Active Start: March 19, 2024 End: April 08, 2024 Dr. Shaan Rojas MD Other Provider Active Start : March 19, 2024 End: April 08, 2024 Team Status: Active Member Role Status Dates Dr. Kierra Santiago MD Primary Care Provider Active Start: March 23, 2024 Dr. Jason Smith MD Admit Provider Active Star t: March 23, 2024 Dr. Jason Smith MD Referring Provider Active Start: March 23, 2024 Dr. Jason Smith MD Other Provider Active Star t: March 23, 2024 Dr. Eugene Blanca DPM Other Provider Active Start: March 23, 2024 Dr. Shaan Rojas MD Other Provider Active Start : March 23, 2024 COLTON Wetzel Attending Provider Active Star t: March 23, 2024 Team Status: Active Member Role Status Dates Dr. Kierra Santiago MD Primary Care Provider Active Start: March 27, 2024 Dr. Jason Smith MD Admit Provider Active Star t: March 27, 2024 Dr. Jason Smith MD Referring Provider Active Start: March 27, 2024 Dr. Jason Smith MD Other Provider Active Star t: March 27, 2024 Dr. Eugene Blanca DPM Other Provider Active Start: March 27, 2024 Dr. Shaan Rojas MD Other Provider Active Start : March 27, 2024 COLTON Wetzel Attending Provider Active Star t: March 27, 2024 Team Status: Active Member Role Status Dates Dr. Kierra Santiago MD Primary Care Provider Active Start: April 02, 2024 Dr. Jason Smith MD Admit Provider Active Star t: April 02, 2024 Dr. Jason Smith MD Referring Provider Active Start: April 02, 2024 Dr. Jason Smith MD Other Provider Active Star t: April 02, 2024 Dr. Eugene Blanca DPM Other Provider Active Start: April 02, 2024 Dr. Shaan Rojas MD Other Provider Active Start : April 02, 2024 Dr. Robb Giron DO Attending Provider Active Start: April 02, 2024 Team Status: Inactive Member Role Status Dates Dr. Kierra Santiago MD Primary Care Provider Active Start: April 04, 2024 End: April 04, 2024 Dr. Kierra Santiago MD Referring Provider Active Start: April 04, 2024 End: April 04, 2024 Dr. Robb Giron DO Attending Provider Active Start: April 04, 2024 End: April 04, 2024 Team Status: Active Member Role Status Dates Dr. Kierra Santiago MD Primary Care Provider Active Start: April 04, 2024 Dr. Kierra Santiago MD Referring Provider Active Start: April 04, 2024 Dr. Robb Giron DO Attending Provider Active Start: April 04, 2024 Dr. Robb Giron DO Other Provider Active St art: April 04, 2024 Team Status: Active Member Role Status Dates Dr. Kierra Santiago MD Primary Care Provider Active Start: April 05, 2024 Dr. Jason Smith MD Admit Provider Active Star t: April 05, 2024 Dr. Jason Smith MD Referring Provider Active Start: April 05, 2024 Dr. Jason Smith MD Other Provider Active Star t: April 05, 2024 Dr. Eugene Blanca DPM Other Provider Active Start: April 05, 2024 Dr. Shaan Rojas MD Other Provider Active Start : April 05, 2024 COLTON Wetzel Attending Provider Active Star t: April 05, 2024 Team Status: Inactive Member Role Status Dates Dr. Kierra Santiago MD Primary Care Provider Active Start: May 14, 2024 End: May 14, 2024 Dr. Kierra Santiago MD Referring Provider Active Start: May 14, 2024 End: May 14, 2024 Dr. Roly Herrera MD Attending Provider Active Start: May 14, 2024 End: May 14, 2024 Team Status: Inactive Member Role Status Dates Dr. Kierra Santiago MD Primary Care Provider Active Start: May 28, 2024 End: May 28, 2024 Dr. Shaan Rojas MD Attending Provider Active S tart: May 28, 2024 End: May 28, 2024 Dr. Shaan Rojas MD Referring Provider Active S tart: May 28, 2024 End: May 28, 2024 Dr. Roly Herrera MD Other Provider Active St art: May 28, 2024 End: May 28, 2024 Team Status: Active Member Role Status Dates Dr. Kierra Santiago MD Primary Care Provider Active Start: May 28, 2024 Dr. Shaan Rojas MD Attending Provider Active S tart: May 28, 2024 Dr. Shaan Rojas MD Referring Provider Active S tart: May 28, 2024 Team Status: Inactive Member Role Status Dates Dr. Kierra Santiago MD Primary Care Provider Active Start: June 12, 2024 End: June 12, 2024 Dr. Kierra Santiago MD Referring Provider Active Start: June 12, 2024 End: June 12, 2024 COLTON Wetzel Attending Provider Active Star t: June 12, 2024 End: June 12, 2024 Team Status: Inactive Member Role Status Dates Dr. Kierra Santiago MD Primary Care Provider Active Start: June 13, 2024 End: June 13, 2024 COLTON Wetzel Attending Provider Active Star t: June 13, 2024 End: June 13, 2024 COLTON Wetzel Referring Provider Active Star t: June 13, 2024 End: June 13, 2024 Team Status: Inactive Member Role Status Dates Dr. Kierra Santiago MD Primary Care Provider Active Start: June 19, 2024 End: June 19, 2024 Dr. Kierra Santiago MD Referring Provider Active Start: June 19, 2024 End: June 19, 2024 COLTON Amato Attending Provider Active Start: June 19, 2024 End: June 19, 2024 Team Status: Inactive Member Role Status Dates Dr. Kierra Santiago MD Primary Care Provider Active Start: June 20, 2024 End: June 20, 2024 COLTON Amato Attending Provider Active Start: June 20, 2024 End: June 20, 2024 COLTON Amato Referring Provider Active Start: June 20, 2024 End: June 20, 2024 Team Status: Inactive Member Role Status Dates Dr. Kierra Santiago MD Primary Care Provider Active Start: June 20, 2024 End: June 20, 2024 Dr. Kierra Santiago MD Referring Provider Active Start: June 20, 2024 End: June 20, 2024 Dominick Harrell CENTRAL LAB TECHNICIAN, CENTRAL LAB TECHNICIAN-C Attending Provider Active S tart: June 20, 2024 End: June 20, 2024 Team Status: Inactive Member Role Status Dates Dr. Kierra Santiago MD Primary Care Provider Active Start: July 10, 2024 End: July 10, 2024 Dominick Harrell CENTRAL LAB TECHNICIAN, CENTRAL LAB TECHNICIAN-C Attending Provider Active S tart: July 10, 2024 End: July 10, 2024 Dominick Harrell CENTRAL LAB TECHNICIAN, CENTRAL LAB TECHNICIAN-C Referring Provider Active S tart: July 10, 2024 End: July 10, 2024 Team Status: Inactive Member Role Status Dates Dr. Kierra Santiago MD Primary Care Provider Active Start: July 25, 2024 End: July 25, 2024 Dominick Harrell CENTRAL LAB TECHNICIAN, CENTRAL LAB TECHNICIAN-C Attending Provider Active S tart: July 25, 2024 End: July 25, 2024 Dominick Harrell CENTRAL LAB TECHNICIAN, CENTRAL LAB TECHNICIAN-C Referring Provider Active S tart: July 25, 2024 End: July 25, 2024 Nurse Sitter Relationship Specialty Start Date End Date Kierra Santiago MD [address] [place] [address] PCP - General Internal Medicine 07/01/22 Anastasiia Colón, EDGE KITTER.CERTIFIED JUVENILE PROBATION OFFICER [address] [facility] [place] [address] [employer] Loan [employer] Internal Medicine 04/09/24 Sheryl Reyes EDGE KITTER.REPORT SPECIALIST [address] [facility] [place] [address] [facility] Internal Medicine 07/24/24 Nurse Sitter Relationship Specialty Start Date End Date Kierra Santiago MD [address] [facility] [place] [address] PCP - General Internal Medicine 07/01/22 Anastasiia Colón, EDGE KITTER.CERTIFIED JUVENILE PROBATION OFFICER [address] [facility] [place] [address] [employer] Internal Medicine 04/09/24 Sheryl Reyes EDGE KITTER.REPORT SPECIALIST [address] [facility] [place] [address] [facility] Internal Medicine 07/24/24 Nurse Sitter Relationship Specialty Start Date End Date Kierra Santiago MD [address] [place] [address] PCP - General Internal Medicine 07/01/22 Anastasiia Colón, EDGE KITTER.CERTIFIED JUVENILE PROBATION OFFICER [address] [place] [address] [employer] Internal Medicine 04/09/24 Sheryl Reyes APRN.REPORT SPECIALIST [address] [place] [address] [employer] Internal Medicine 07/24/24 Team Status: Inactive Member Role Status Dates Dr. Kierra Santiago MD Primary Care Provider Active Start: August 15, 2024 End: August 15, 2024 Dominick Harrell CENTRAL LAB TECHNICIAN, CENTRAL LAB TECHNICIAN-C Attending Provider Active S tart: August 15, 2024 End: August 15, 2024 Dominick Harrell CENTRAL LAB TECHNICIAN, CENTRAL LAB TECHNICIAN-C Referring Provider Active S tart: August 15, 2024 End: August 15, 2024 Team Status: Inactive Member Role Status Dates Dr. Kierra Santiago MD Primary Care Provider Active Start: August 22, 2024 End: August 22, 2024 Dr. Kierra Santiago MD Referring Provider Active Start: August 22, 2024 End: August 22, 2024 Dr. Robb Giron DO Attending Provider Active Start: August 22, 2024 End: August 22, 2024 Team Status: Active Member Role Status Dates Dr. Kierra Santiago MD Primary Care Provider Active Start: August 22, 2024 Dr. Kierra Santiago MD Referring Provider Active Start: August 22, 2024 Dr. Robb Giron DO Attending Provider Active Start: August 22, 2024 Dr. Robb Giron DO Other Provider Active St art: August 22, 2024 Team Status: Inactive Member Role Status Dates Dr. Kierra Santiago MD Primary Care Provider Active Start: August 28, 2024 End: August 28, 2024 COLTON Wetzel Attending Provider Active Star t: August 28, 2024 End: August 28, 2024 COLTON Wetzel Referring Provider Active Star t: August 28, 2024 End: August 28, 2024 Dominick Harrell CENTRAL LAB TECHNICIAN, CENTRAL LAB TECHNICIAN-C Other Provider Active Start : August 28, 2024 End: August 28, 2024 Team Status: Active Member Role Status Dates Dr. Kierra Santiago MD Primary Care Provider Active Start: August 28, 2024 Dr. Shaan Rojas MD Attending Provider Active S tart: August 28, 2024 COLTON Wetzel Referring Provider Active Star t: August 28, 2024 Team Status: Inactive Member Role Status Dates Dr. Kierra Santiago MD Primary Care Provider Active Start: September 06, 2024 End: September 29, 2024 Self Referred Attending Provider Active Start: Kisha green 2024 End: September 29, 2024 Team Status: Inactive Member Role Status Dates Dr. Kierra Santiago MD Primary Care Provider Active Start: October 01, 2024 End: October 01, 2024 COLTON Wetzel Attending Provider Active Star t: October 01, 2024 End: October 01, 2024 COLTON Wetzel Referring Provider Active Star t: October 01, 2024 End: October 01, 2024 Team Status: Active Member Role Status Dates Dr. Kierra Santiago MD Primary Care Provider Active Start: October 02, 2024 Dr. Eugene Blanca DPM Attending Provider Active Start: October 02, 2024 Dr. Eugene Blanca DPM Referring Provider Active Start: October 02, 2024 Goals (unrecognized section and content) Goals may be documented in a n alternate section INFORMATION SOURCE (unrecogn ized section and content) DATE CREATED AUTHOR 09/12/2024 [facility] DATE CREATED AUTHOR AUTHOR'S ORGANIZ ATION 10/07/2024 [facility] FOR RECORDS PERTAINING TO PATIENTS WHO ARE OR HAVE BEEN ENROLLED IN A CHEMICAL DEPENDENCY/SUBSTANCEABUSE PROGRAM, SOME INFORMATION MAY BE OMITTED. This clinical summary was aggregated from multiple sources. Caution should be exercised in using it in the provision of clinical care. This summary normalizes information from multiple sources, and as a consequence, information in this document may materially change the coding, format and clinical context of patient data. In addition, data may be omitted in some cases. CLINICAL DECISIONS SHOULD BE BASED ON THE PRIMARY CLINICAL RECORDS. [employer] provides no warranty or guarantee of the accuracy or completeness of information in this document.
[2024-10-07 22:34] LABS: Absolute Lymphocyte Count 1.35 X10^3/uL (0.83-4.51); Absolute Neutrophil Count 5.3 X10^3/uL (2.0-7.7); Basophil# 0.02 X10^3/uL; Basophil% 0.3 % (0-1); Eosinophil# 0.03 X10^3/uL; Eosinophils% 0.4 % (0-5); Hematocrit 20.6 % (37-47); Hemoglobin 6.5 g/dL (12.0-15.0); Lymphocyte # 1.35 X10^3/ul (0.83-4.51); Lymphocyte % 18.2 % (19-41); Mean Corp Hgb Conc 31.6 g/dL (32-36); Mean Corpuscular Hgb 33.7 pg (27.0-32.0); Mean Corpuscular Volume 106.7 fL (81-99); Mean Platelet Vol. 11.5 fl (6.2-12.0); Monocyte# 0.66 X10^3/uL; Monocyte% 8.9 % (0-10); NRBC Flagged by Analyzer 1.5 % (0-5); Neutrophil # 5.32 X10^3/uL (2.7-7.7); Neutrophil % 71.8 % (47-70); POSITIVE MORPHOLOGY YES; Platelet Count 184 K/mm3 (150-450); RBC Distribution Width CV 19.2 % (11.6-14.6); RBC Distribution Width SD 72.3 fl (35.1-43.9); Red Blood Count 1.93 M/mm3 (4.2-5.4); White Blood Count 7.4 K/mm3 (4.4-11.0)
[2024-10-07 22:36] LABS: Differential Indicated SCAN CRITERIA MET
--- NOTE | 2024-10-07 22:40 | RAD_ITS ---
PROCEDURE: CHEST PA AND LATERAL 10/07/2024 REASON FOR EXAM: SOB, CP TECHNIQUE: Frontal and lateral views of the chest. COMPARISON: Chest radiograph and CTA chest 12/31/2023. FINDINGS: Hardware: None. Heart: Heart size is mildly enlarged. Mediastinum: The mediastinal contour is stable. Lungs: Bibasilar atelectasis/scarring. Trace left pleural effusion. 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 No pneumothorax. Bones: Degenerative changes are identified within the thoracic spine. RAD/Chest PA and Lateral IMPRESSION: Trace left pleural effusion and mild cardiomegaly. Reading Location: [id number]
[2024-10-07 22:41] LABS: International Normalized Ratio 2.7; Prothrombin Time (Protime)PT. 29.4 SECONDS (11.7-14.9)
[2024-10-07 23:03] LABS: Pro- Brain NATRIURETIC PEPTIDE 2304 pg/mL (<=1800); Troponin T High Sensitivity 46 ng/L (<=14)
[2024-10-07 23:07] LABS: Anion Gap 16 (5-15); BUN 36 mg/dL (4-19); BUN/Creat Ratio 24.9 RATIO (10-20); Calcium,Total 8.6 mg/dL (7.6-11.0); Carbon Dioxide 16.2 mmol/L (21.0-32.0); Chloride 102 mmol/L (98-108); Creatinine, Serum 1.46 mg/dL (0.70-1.20); EST Glomerular Filtration Rate 35 (>60); Estimated Creatinine Clearance 26.99 ml/min (50-250); Glucose 140 mg/dL (70-99); Potassium 3.9 mmol/L (3.3-5.1); Sodium Level 134 mmol/L (133-145)
[2024-10-07 23:09] LABS: Differential Comment SCANNED; Platelet Estimate ADEQUATE (ADEQ)
[2024-10-07 23:10] LABS: Anisocytosis 2+; Polychromasia 2+
--- NOTE | 2024-10-07 23:42 | PCM.HP.STD ---
HPI - General General Date of Admission: 10/07/24 Date of Service: 10/07/24 Chief Complaint: Dyspnea, chest pain, dark stools. HPI Narrative The patient is an 83 y/o F w/ PMHx: Diabetes mellitus type II, CKD stage III per GFR trending unclear subtype, PAF, Chronic hypoxic respiratory failure 2 L NC nightly only, PAD status post femoral-popliteal bypass, Carotid stenosis status post previous endarterectomy, Dilated Cardiomyopathy/HFpEF, Hx TIA, HTN, HLD, Anxiety and Depression, GERD, Hx VTE w/ factor V Leiden on Coumadin, recent upper endoscopy 08/22/[address] Giron secondary to history of gastric ulcer for surveillance with normal esophagus, erythematous mucosa in the gastric body which was biopsied with no gross lesions presents to the [facility] ED on 10/07/2024 with history of substernal nonpleuritic heaviness and dyspnea over the last 2 days worse with laying down with mild nonproductive cough with increased swelling to her legs over the last week prompting self administration of an extra Lasix a day prior with improvement of the swelling but given worsening dyspnea prompted her to utilize her oxygen not just in the evening but through the day with stools darker in appearance for the last 1 to 2 weeks but she does note she is on chronic iron supplementation also but it certainly changed in color from previous. Patient and spouse also report recent at least 1 week history of mild orthopnea and cough with frothy sputum in addition to her recent increased swelling of her lower extremities. Workup in the ED included T98.3, heart rate 69, BP 119/45, respiratory rate 23, 100% on room air with most recent repeat vitals T98, heart rate 64, BP 109/53, respiratory rate 16, 90% room air, CBC with WBC 7.4, hemoglobin 6.5, MCV 106.7, platelet 184 without marked shift, coags with INR 2.7, PT 29.4, BMP with carbon dioxide 16.2, anion gap 16, BUN/creat 36/1.46, GFR 35, glucose 140, troponin 46, NT proBNP II 2304, chest x-ray with trace pleural effusion and mild cardiomegaly, EKG with sinus rhythm with ST depression in the lateral leads but no evidence of acute STEMI, stool guaiac positive. In the ED patient initiated on 2 unit PRBC and administered also FFP. In the ED patient answered albuterol, Protonix 40 mg IV x 1. [facility] Medical History TIA (transient ischemic attack) Wears glasses Depression Heartburn Non-smoker On home oxygen therapy Hypertension Gastric ulcer Dilated cardiomyopathy Prolonged QT interval Elevated blood pressure reading without diagnosis of hypertension Factor V Leiden Anxiety Hypokalemia Acute hypoxemic respiratory failure CHF (congestive heart failure) Home Medications ?Medication ?Instructions ?Recorded ?Last Taken ?Type oxybutynin chloride 10 mg 10 mg PO DAILY bladder 09/23/23 08/22/24 History tablet,extended release 24 hr glimepiride 2 mg tablet 2 mg PO DAILY dm 12/31/23 Unknown History ferrous sulfate 325 mg (65 mg 325 mg PO DAILY@1200 supplement 30 02/03/24 Unknown Rx iron) tablet (FeroSul) days #30 tabs warfarin 2 mg tablet 2 mg PO .MWF afib 03/07/24 Unknown History furosemide 40 mg tablet 40 mg PO DAILY water pill 30 days 03/19/24 01/27/24 Rx #60 tabs clopidogrel 75 mg tablet 75 mg PO DAILY 30 days #30 tabs 04/05/24 Unknown Rx pantoprazole 40 mg tablet,delayed 40 mg PO BID 30 days #60 tabs 04/05/24 Unknown Rx release simvastatin 80 mg tablet 80 mg PO QHS 06/20/24 Unknown History metoprolol succinate 50 mg 50 mg PO BID #1 TAB 07/20/24 08/22/24 Rx tablet,extended release 24 hr magnesium chloride 64 mg 128 mg PO DAILY 08/17/24 Unknown History (magnesium chloride) tablet,delayed release (Mag 64) warfarin 3 mg tablet 3 mg PO SUTUTHSA 08/17/24 Unknown History losartan 100 mg tablet 100 mg PO QDAY #90 tabs 08/20/24 Unknown Rx potassium chloride 20 mEq 20 meq PO BID 08/20/24 Unknown History tablet,extended release amlodipine 10 mg tablet 10 mg PO .COMPLEX #90 tabs 09/04/24 Unknown Rx acetaminophen 500 mg capsule 500 mg PO QHS PRN pain 10/07/24 Unknown History fluticasone propionate 50 spray intranasal 10/07/24 Unknown History mcg/actuation nasal spray,suspension gabapentin 100 mg capsule 100 mg PO TID 10/07/24 Unknown History tizanidine 2 mg tablet 2 mg PO Q8 PRN Muscle Spasm 10/07/24 Unknown History Allergy/AdvReac Type Severity Reaction Status Date / Time benazepril (From Lotensin) Allergy Mild DOESNT Verified 10/07/24 21:21 REMEMBER quinapril (From Accupril) Allergy Mild UNKNOWN Verified 10/07/24 21:21 Sulfa (Sulfonamide Allergy Mild Hives Verified 10/07/24 21:21 Antibiotics) verapamil (From Calan) Allergy Mild UNKNOWN Verified 10/07/24 21:21 Family History Mother Diabetes Father Diabetes CVA (cerebral vascular accident) Heart disease Hypertension Myocardial infarction CAD (coronary artery disease) Brother Myocardial infarction Hypertension Heart disease CAD (coronary artery disease) Sister NAFLD (nonalcoholic fatty liver disease) Other Asthma COPD (chronic obstructive pulmonary disease) Surgical History Hx of amputation History of transmetatarsal amputation of right foot History of femoropopliteal bypass S/P carotid endarterectomy Social History household members: spouse Smoking Status: Never smoker alcohol intake: never substance use type: does not use ROS ROS Narrative Admission Review of Systems: CONSTITUTIONAL: No weight loss, fever, chills, + weakness or fatigue. HEENT: Eyes: No visual loss, blurred vision, double vision or yellow sclerae. Ears, Nose, Throat: No hearing loss, sneezing, congestion, runny nose or sore throat. SKIN: No rash or itching, lesions, wounds except + very stage ecchymoses, abrasion, bilateral lower extremity venous stasis skin changes. CARDIOVASCULAR: + Recent orthopnea, edema increased above baseline although improved with recent Lasix, chest pain. No palpitations, syncopal events. RESPIRATORY: + Dyspnea, cough with frothy sputum. No marked purulent sputum, wheezing, hemoptysis. GASTROINTESTINAL: + Dark cinnamon colored stools. No anorexia, nausea, vomiting or diarrhea, abdominal pain, melena, BRBPR. GENITOURINARY: No dysuria, frequency, urgency or retention. NEUROLOGICAL: No headache, dizziness, syncope, paralysis, ataxia, numbness or tingling in the extremities, focal weakness, change in bowel or bladder control, seizure. MUSCULOSKELETAL: + muscle, back pain, joint pain or stiffness. HEMATOLOGIC: + Chronic anemia, easy bleeding/bruising. LYMPHATICS: No enlarged nodes. No history of splenectomy. PSYCHIATRIC: + History of anxiety and depression chart reported. ENDOCRINOLOGIC: No reports of sweating, cold or heat intolerance. No polyuria or polydipsia. ALLERGIES: + History of hives. Vital Signs Vital Signs Vital Signs: 10/07/24 21:21 10/07/24 21:26 10/07/24 21:42 Temperature 98.3 F 98.3 F Temperature Source Oral Oral Pulse Rate 69 69 Respiratory Rate 24 H 24 H Respiratory Effort Short of Breath Respiratory Pattern Tachypnea Blood Pressure 119/45 L 119/45 L Blood Pressure Mean 69 69 Pulse Ox 100 100 Oxygen Delivery Method Room Air Room Air Room Air 10/07/24 22:09 10/07/24 22:24 10/07/24 22:26 Temperature 98.5 F Temperature Source Oral Pulse Rate 72 72 Respiratory Rate 19 H 13 Respiratory Effort Respiratory Pattern Blood Pressure 106/42 L Blood Pressure Mean 63 Pulse Ox 94 90 Oxygen Delivery Method Room Air Room Air 10/07/24 23:00 Temperature 98 F Temperature Source Oral Pulse Rate 64 Respiratory Rate 16 Respiratory Effort Respiratory Pattern Blood Pressure 109/53 L Blood Pressure Mean 71 Pulse Ox 90 Oxygen Delivery Method Room Air Weight Weight: 155 lb 3.287 oz Body Mass Index (BMI) 27.5 Physical Exam Narrative Physical Examination: General: Awake, alert, oriented x 3 and cooperative, seated upright in ED bed, fatigued, mildly anxious. Skin: Mildly pale color, normal turgor, no icterus, no cyanosis except occasional stage ecchymoses, abrasion, bilateral lower extremity venous stasis skin changes. HEENT: AT/NC, EOMI, PERRLA, MMM, no carotid bruits, difficult to discern JVD given thickened neck. Lungs: Mildly diminished, greater bases, no evidence of any distress, mild rales, moist upper airway sounds, no rhonchi or wheezing. Heart: Mildly bradycardic with regular rhythm; no gallop, rub audible, + SM. Abdomen: Soft, mild discomfort elicited to palpation of bilateral lower quadrants but no rebound or guarding, right greater than left, mildly distended, tympanitic, hyperactive BS, no appreciated HSM. No specific focal epigastric discomfort. Extremities: No cyanosis, no clubbing, pedal to mid aguirre 2+ pitting edema, right greater than left secondary to previous intervention history. Neurological: Patient awake, alert, oriented as noted, cognitive function intact; pupils equally reactive to light and accommodation, cranial nerves grossly normal, moving all 4 extremities, no focal deficits, strength severely globally decreased. Psychiatric: Affect appears fatigued, no acute evidence of depressive or anxiety feelings but does have underlying history. Results Lab / Micro Data 10/07/24 22:22 10/07/24 22:22 Labs: Laboratory Results - last 24 hr 10/07/24 22:22: WBC 7.4, RBC 1.93 L, Hgb 6.5 L, Hct 20.6 L, MCV 106.7 H, MCH 33.7 H, MCHC 31.6 L, RDW Std Deviation 72.3 H, RDW Coeff of Kate 19.2 H, Plt Count 184, MPV 11.5, Immature Gran % (Auto) 0.400, Neut % (Auto) 71.8 H, Lymph % (Auto) 18.2 L, [place] % (Auto) 8.9, Eos % (Auto) 0.4, Baso % (Auto) 0.3, Absolute Neuts (auto) 5.3, Absolute Lymphs (auto) 1.35, Nucleated RBC % 1.5, Differential Comment SCANNED, Platelet Estimate ADEQUATE, Polychromasia 2+, Anisocytosis 2+, PT 29.4 H, INR 2.7, Sodium 134, Potassium 3.9, Chloride 102, Carbon Dioxide 16.2 L, Anion Gap 16 H, BUN 36 H, Creatinine 1.46 H, Estim Creat Clear Calc 26.99 L, Est GFR (MDRD) Non-Af 35 L, BUN/Creatinine Ratio 24.9 H, Glucose 140 H, Calcium 8.6, Troponin T High Sens 46 H, NT pro BNP II 2304 H 10/07/24 23:21: Crossmatch See Detail Micro: Microbiology 10/07/24 22:53 Stool Stool Occult Blood (LATANYA) - Final Occult Blood Positive Rhythm Strip Rhythm Strip: Sinus Rhythm Rate: 65 Ectopy: None Imaging Radiology Impression Chest X-Ray 10/07/24 22:40 IMPRESSION: Trace left pleural effusion and mild cardiomegaly. Reading Location: [id number] Assessment & Plan Assessment/Plan (1) Acute upper GI bleed: (2) ABLA (acute blood loss anemia): PLAN: Plan The patient is an 83 y/o F w/ PMHx: Diabetes mellitus type II, CKD stage III per GFR trending unclear subtype, PAF, Chronic hypoxic respiratory failure 2 L NC nightly only, PAD status post femoral-popliteal bypass, Carotid stenosis status post previous endarterectomy, Dilated Cardiomyopathy/HFpEF, Hx TIA, HTN, HLD, Anxiety and Depression, GERD, Hx VTE w/ factor V Leiden on Coumadin, recent upper endoscopy 08/22/[address] Giron secondary to history of gastric ulcer for surveillance with normal esophagus, erythematous mucosa in the gastric body which was biopsied with no gross lesions presents to the [facility] ED on 10/07/2024 with history of substernal nonpleuritic heaviness and dyspnea over the last 2 days worse with laying down with mild nonproductive cough with increased swelling to her legs over the last week prompting self administration of an extra Lasix a day prior with improvement of the swelling but given worsening dyspnea prompted her to utilize her oxygen not just in the evening but through the day with stools darker in appearance for the last 1 to 2 weeks but she does note she is on chronic iron supplementation also but it certainly changed in color from previous. #1. Acute GI Bleed w/ resultant Acute Blood Loss Anemia on chronic anemia/iron deficiency anemia secondary to underlying coagulopathy on Coumadin therapy for history of factor V Leiden with VTE complicated by history of recent gastric ulcer with previous history GI bleed: Status post initiation of 2 unit PRBC in the ED as well as FFP, will admit to PCU given stable vital signs currently, will repeat INR following FFP completion, monitor for overload with FFP and PRBC administration with IV Lasix in between, will continue serial H&H assessment, maintain on IV Protonix drip, n.p.o. status, gastroenterology consult and evaluation pending. Once amenable per GI would immediately start heparin drip if amenable and restart antiplt therapy once allowed also. Continue oral iron supplementation. #2. Chest Pain with indeterminate cardiac enzyme of unclear significance but suspect demand given #1 with EKG changes felt associated: EKG in ED sinus rhythm with ST depression lateral leads but no evidence of STEMI, CXR w/ trace pleural effusion mild cardiomegaly, initial trop 46. Will maintain on a monitored bed to assure no acute myocardial infarction with serial cardiac enzymes and EKGs. Mag requested. FLP in AM. Holding Plavix, reversing Coumadin given #1, awaiting GI evaluation, resume antiplatelet therapy and coumadin. If enzymes rise low threshold to involve cardiology and obtain ECHO. #3. Suspected component Acute Decompensated HFpEF/dilated cardiopathy: Will maintain on cardiac telemetry, obtain cardiac enzyme series, obtain serial EKGs, will attempt pulsed dose Lasix in between PRBC and FFP with further IV as needed otherwise transition plan to oral home Lasix regimen, monitor I/Os, patient unable to tolerate radha wraps of note thus will defer, most recent echocardiogram 05/08/2024 with LV mildly dilated, LV systolic function 63? percent, RV normal in size, RV systolic function normal, mildly dilated LA, aorta dilated with maximal dimension 4.1 cm. #4. Mildly elevated creatinine/insufficiency on Chronic Kidney Disease Stage III, unclear subtype per GFR trending likely secondary to #1 with acute blood loss anemia/hypoperfusion: Admission BUN/Cr 36/1.46, GFR 35, baseline renal function primarily 1.0-1.1, repeat BMP in AM. #5. PAD: s/p R fem-pop bypass 01/2024 performed due to acute in-situ R popliteal thrombosis with associated R toe ischemia w/ attempted endovascular R tibial intervention 03/2024 w/ eventual R calf hematoma evacuation, 2 compartment fasciotomy, and revision jump graft from her fem-pop bypass to PT with reversed GSV 03/12/2024 and then follow-up R TMA 03/15/2024. Per family, unfortunately occurred when she had to be off Coumadin thus as noted above would benefit greatly from immediate restart of at least a heparin drip once cleared by gastroenterology and antiplatelet therapy once amenable also. As noted temporally holding Plavix, Coumadin with FFP being administered with repeat INR following and in a.m., continue hypertensive regimen, continue statin therapy. #6. Carotid disease: Status post endarterectomy, temporarily holding Plavix, Coumadin with FFP being administered with repeat INR following and in a.m., continue hypertensive regimen, continue statin therapy. #7. History of TIA: As noted temporally holding Plavix, Coumadin, continue hypertensive regimen, statin therapy, temporarily holding oral diabetic regimen with insulin sliding scale as noted. #8. Hypertension: Continue home regimen including losartan, metoprolol, amlodipine, oral Lasix with IV post Lasix as noted above, PRN hydralazine. #9. Hyperlipidemia: Will continue patient on statin therapy. #10. PAF: Will continue patient on metoprolol regimen, holding Coumadin with FFP administration planned as noted, resume once clinically appropriate. #11. Diabetes mellitus type II with chronic neuropathy: Hold oral home regimen, n.p.o. status given #1, maintain on every 6 hours accu checks w/ ISS, continue home gabapentin regimen. #12. Anxiety and depression: Per current list does not appear to be on regimen, noted in chart history, encourage continued outpatient evaluation. #13. DVT prophylaxis: SCDs, reversing coumadin, pending INR following FFP completion and repeat in AM. #14. CODE status: Patient HCPLUI is her who is present and living will is currently in place. Discussed CODE status at length including difference between FULL code, DNR-CCA and DNR-CC status. Following discussions about the differences in these status, requested following lengthy discussion and several examples eventually Full Code status. Per they had apparently been DNR CCA in the past but it is unclear if they understood with this fully manage following current discussions. Advanced Care Planning Face to Face Time: 16 minutes. Charges/Coding Visit Charges Inpatient E&M: 86863 Init Hosp L3 Procedures Hospitalists Procedures: 80284 Advncd Care Plan 30 Min
[2024-10-08] VITALS (21 sets, daily range): BP systolic 113–148; BP diastolic 42–71; PULSE 52–73; RESP 11–20; TEMP 36.1–37.2; O2SAT 90–99; BMI 27.1; BMI 27.2
--- OUTSIDE RECORDS SUMMARY | 2024-10-08 00:03 | XMS RPT_ITS | CCD ---
Author Organization [facility]ini[facility] Care Team Providers Care Redevelopment Specialist Name Role Phone Kierra Lucio MD Primary Care Provider Kierra Lucio MD Primary Care Provider Bety RN, Nancy Sarah Unavailable Bety RN, Nancy Sarah Unavailable Colón OPTICIAN APPRENTICE.LAUNDRY ROUTEMAN, Dai Unavailable Eric OPTICIAN APPRENTICE.TAPE CUTTING MACHINE OPERATOR, Sheryl Unavailable Eric OPTICIAN APPRENTICE.TAPE CUTTING MACHINE OPERATOR, Sheryl Belen Unavailable Eric OPTICIAN APPRENTICE.TAPE CUTTING MACHINE OPERATOR, Sheryl Unavailable Dr. Kierra Lucoi MD Primary Care Provider Luis ERICKSON, Dr. Jason Hilliard Admit Provider Luis ERICKSON, Dr. Jason Hilliard Attending Provider Dr. Jason Smith MD, Chi Referring Provider Evangelist JAVIER, Dr. Kinght Other Provider Dr. Shaan Rojas MD Other Provider Luis ERICKSON, Dr. Jason Hilliard Other Provider Laura Armendariz Attending Provider Dr. Robb Giron DO Attending Provider Dr. Kierra Lucio MD Referring Provider Dr. Robb Giron DO Other Provider [phone] Roly Herrera MD Attending Provider Dr. Shaan Rojas MD Attending Provider Crystal ERICKSON, Dr. Garduno Referring Provider [phone] Javier ERICKSON, Dr. Dunham Other Provider Socrates SEGURA, Laura Referring Provider [phone] Ese Solano Attending Provider Ese Solano Referring Provider Roof WOMEN'S STUDIES PROFESSOR-C, Dominick H Attending Provider Julio Cesar WOMEN'S STUDIES PROFESSOR-C, Dominick H Referring Provider Luis ERICKSON, Dr. Jason Hilliard Other Provider Socrates SEGURA, Laura Attending Provider [phone] Eric OPTICIAN APPRENTICE.TAPE CUTTING MACHINE OPERATOR, Sheryl Unavailable Khadijah ERICKSON, Dr. Kierra Solis Primary Care Provider [phone] Khadijah ERICKSON, Dr. Kierra Solis Referring Provider Laura Armendariz Attending Provider [phone] TALAMPAS, KIERRA D Primary Care Unavailable COLÓN, DAI Referring Unavailable SLEIK, KHALED MELOUD Attending Unavailable SLEIK, KHALED MELOUD Referring Unavailable TALAMPAS, KIERRA D Primary Care Unavailable TALAMPAS, KIERRA D Referring Unavailable TALAMPAS, KIERRA D Primary Care Unavailable TALAMPAS, KIERRA D Primary Care Unavailable DELGADO, DAYLIN D Attending Unavailable DELGADO, DAYLIN D Referring Unavailable COLÓN, DAI Referring Unavailable TALAMPAS, KIERRA D Primary Care Unavailable DELGADO, DAYLIN D Referring Unavailable TALAMPAS, KIERRA D Primary Care Unavailable DELGADO, DAYLIN D Attending Unavailable DELGADO, DAYLIN D Referring Unavailable TALAMPAS, KIERRA D Primary Care Unavailable SLEIK, KHALED MELOUD Referring Unavailable TALAMPAS, KIERRA D Primary Care Unavailable TALAMPAS, KIERRA D Primary Care Unavailable TALAMPAS, KIERRA D Primary Care Unavailable COLÓN, DAI Attending Unavailable TALAMPAS, KIERRA D Primary Care Unavailable COLÓN, DAI Referring Unavailable TALAMPAS, KIERRA D Primary Care Unavailable JOELLE BARRETO Referring Unavailable TALAMPAS, KIERRA D Primary Care Unavailable TALAMPAS, KIERRA D Primary Care Unavailable JOELLE BARRETO Referring Unavailable TALAMPAS, KIERRA D Primary Care Unavailable SARAY ACOSTA Referring Unavailable TALAMPAS, KIERRA D Primary Care Unavailable TALAMPAS, KIERRA D Primary Care Unavailable COLÓN, DAI Referring Unavailable TALAMPAS, KIERRA D Primary Care Unavailable TALAMPAS, KIERRA D Primary Care Unavailable TALAMPAS, KIERRA D Primary Care Unavailable COLÓN, DAI Referring Unavailable TALAMPAS, KIERRA D Primary Care Unavailable TALAMPAS, KIERRA D Primary Care Unavailable TALAMPAS, KIERRA D Primary Care Unavailable KANIKA, JUAN ANTONIO J Referring Unavailable TALAMPAS, KIERRA D Referring Unavailable TALAMPAS, KIERRA D Primary Care Unavailable TALAMPAS, KIERRA D Primary Care Unavailable SELF Referring Unavailable TALAMPAS, KIERRA D Primary Care Unavailable TALAMPAS, KIERRA D Primary Care Unavailable COLÓN, DAI Referring Unavailable TALAMPAS, KIERRA D Primary Care Unavailable COLÓN, DAI Attending Unavailable COLÓN, DAI Referring Unavailable TALAMPAS, KIERRA D Primary Care Unavailable JOELLE BARRETO Attending Unavailable TALAMPAS, KIERRA D Primary Care Unavailable DARRICK ARMENTA Attending Unavailable COLÓN, DAI Referring Unavailable TALAMPAS, KIERRA D Primary Care Unavailable COLÓN, DAI Referring Unavailable TALAMPAS, KIERRA D Primary Care Unavailable TALAMPAS, KIERRA D Primary Care Unavailable COLÓN, DAI Referring Unavailable COLÓN, DAI Attending Unavailable TALAMPAS, KIERRA D Attending Unavailable TALAMPAS, KIERRA D Primary Care Unavailable COLÓN, DAI Referring Unavailable TALAMPAS, KIERRA D Primary Care Unavailable TALAMPAS, KIERRA D Primary Care Unavailable SELF Referring Unavailable CLOÓN, DAI Attending Unavailable TALAMPAS, KIERRA D Primary Care Unavailable COLÓN, DAI Referring Unavailable TALAMPAS, KIERRA D Primary Care Unavailable COLÓN, DAI Referring Unavailable TALAMPAS, KIERRA D Primary Care Unavailable TALAMPAS, KIERRA D Primary Care Unavailable COLÓN, DAI Referring Unavailable TALAMPAS, KIERRA D Primary Care Unavailable COLÓN, DAI Referring Unavailable TALAMPAS, KIERRA D Primary Care Unavailable TALAMPAS, KIERRA D Primary Care Unavailable COLÓN, DAI Referring Unavailable TALAMPAS, KIERRA D Primary Care Unavailable COLÓN, DAI Attending Unavailable TALAMPAS, KIERRA D Primary Care Unavailable COLÓN, DAI Referring Unavailable TALAMPAS, KIERRA D Primary Care Unavailable TALAMPAS, KIERRA D Primary Care Unavailable COÓLNDAI Cherry Referring Unavailable Khadijah ERICKSON, Dr. Kierra Solis Primary Care Provider [phone] Khadijah ERICKSON, Dr. Kierra Solis Referring Provider Friend , Dr. Zamudio Attending Provider Friend DO, Dr. Zamudio Other Provider [facility] Dominick YUN Other Provider Crystal ERICKSON, Dr. Garduno Attending Provider Referred, Self Attending Provider Unavailable Evangelist DPM, Dr. Knight Attending Provider Evangelist DPM, Dr. Knight Referring Provider [phone] Talampas, Kierra D Primary Care Unavailable Jaimie Vargas Admitting Unavailable Jaimie Vargas Consulting Unavailable David, Sukhdev Attending Unavailable Tavares Sargent Consulting Unavailable Robb Giron Attending Unavailable Talampas, Kierra D Referring Unavailable Talampas, Kierra D Primary Care Unavailable Talampas, Kierra D Referring Unavailable Talampas, Kierra D Primary Care Unavailable Robb Giron Attending Unavailable Suresh Merida Admitting Unavailable Talampas, Kierra D Primary Care Unavailable Laura Crowell Attending Unavailable David, Sukhdev Referring Unavailable Eugene Blanca Consulting Unavailable Suresh Merida Consulting Unavailable Shaan Rojas Consulting Unavailable Van Ridley Consulting Unavailable David, Sukhdev Consulting Unavailable Talampas, Kierra D Primary Care Unavailable Luis, Jason Chi Admitting Unavailable Luis Jason Chi Attending Unavailable Luis, Jason Chi Referring Unavailable Eugene Blanca Consulting Unavailable Shaan Rojas Consulting Unavailable Talampas, Kierra D Primary Care Unavailable Referred, Self Attending Unavailable Suresh Merida Admitting Unavailable Talampas, Kierra [...] ble Talampas, Kierra D Primary Care Unavailable Crowell, Laura Attending Unavailable Crowell, Laura Attending Unavailable Crowell, Laura Referring Unavailable Talampas, Kierra D Primary Care Unavailable Atanasov, Ese Referring Unavailable Talampas, Kierra D Primary Care Unavailable Atanasov, Ese Attending Unavailable Talampas, Kierra D Primary Care Unavailable Roof, Dominick H Attending Unavailable Roof, Dominick H Referring Unavailable Crowell, Laura Attending Unavailable Crowell, Laura Referring Unavailable Talampas, Kierra D Primary Care Unavailable Roof, Dominick H Consulting Unavailable Talampas, Kierra D Primary Care Unavailable Roly Herrera Consulting Unavailable Matheus Fabian Attending Unavailable Talampas, Kierra D Primary Care Unavailable Roof, Dominick H Attending Unavailable Roof, Dominick H Referring Unavailable Talampas, Kierra D Primary Care Unavailable Roof, Dominick H Attending Unavailable Roof, Dominick H Referring Unavailable Talampas, Kierra D Primary Care Unavailable Crowell, Laura Attending Unavailable Crowell, Laura Referring Unavailable Sukhdev Hernandez Attending Unavailable Tereletsky, Doron Referring Unavailable Crystal, Shaan Attending Unavailable Ellsworth, Shaan Referring Unavailable Tereletsky, Doron Consulting Unavailable Tereletsky, Doron Attending Unavailable PCP - General Internal Medicine 07/01/22 Dai Colón, OPTICIAN APPRENTICE.LAUNDRY ROUTEMAN [address] [place] [address] Drying Machine Receiver Internal Medicine 04/09/24 Sheryl Reyes, OPTICIAN APPRENTICE.TAPE CUTTING MACHINE OPERATOR [address] [place], [place] [id number] [facility] Internal Medicine 07/24/24 Redevelopment Specialist Relationship Specialty Start Date End Date Kierra Lucio MD [address] [place], [place] [id number] PCP - General Internal Medicine 07/01/22 Dai Colón, OPTICIAN APPRENTICE.LAUNDRY ROUTEMAN [address] [place] [address] [facility] Internal Medicine 04/09/24 Sheryl Reyes APRN.TAPE CUTTING MACHINE OPERATOR [address] [place] [address] [facility] Internal Medicine 07/24/24 Redevelopment Specialist Relationship Specialty Start Date End Date Kierra Lucio MD [address] [place] [address] PCP - General Internal Medicine 07/01/22 Dai Colón APRN.LAUNDRY ROUTEMAN [address] [place] [address] [facility] Internal Medicine 04/09/24 Sheryl Reyes APRN.TAPE CUTTING MACHINE OPERATOR [address] [place] [address] [facility] Internal Medicine 07/24/24 Team Status: Inactive Member Role Status Dates Dr. Kierra Lucio MD Primary Care Provider Active Start: August 15, 2024 End: August 15, 2024 Dominick Harrell WOMEN'S STUDIES PROFESSOR, WOMEN'S STUDIES PROFESSOR-C Attending Provider Active S tart: August 15, 2024 End: August 15, 2024 Dominick Harrell WOMEN'S STUDIES PROFESSOR, WOMEN'S STUDIES PROFESSOR-C Referring Provider Active S tart: August 15, 2024 End: August 15, 2024 Team Status: Inactive Member Role Status Dates Dr. Kierra Lucio MD Primary Care Provider Active Start: August 22, 2024 End: August 22, 2024 Dr. Kierra Lucio MD Referring Provider Active Start: August 22, 2024 End: August 22, 2024 Dr. Robb Giron DO Attending Provider Active Start: August 22, 2024 End: August 22, 2024 Team Status: Active Member Role Status Dates Dr. Kierra Lucio MD Primary Care Provider Active Start: August 22, 2024 Dr. Kierra Lucio MD Referring Provider Active Start: August 22, 2024 Dr. Robb Giron DO Attending Provider Active Start: August 22, 2024 Dr. Robb Giron DO Other Provider Active St art: August 22, 2024 Team Status: Inactive Member Role Status Dates Dr. Kierra Lucio MD Primary Care Provider Active Start: August 28, 2024 End: August 28, 2024 COLTON Wetzel Attending Provider Active Star t: August 28, 2024 End: August 28, 2024 COLTON Wetzel Referring Provider Active Star t: August 28, 2024 End: August 28, 2024 Dominick Harrell WOMEN'S STUDIES PROFESSOR, WOMEN'S STUDIES PROFESSOR-C Other Provider Active Start : August 28, 2024 End: August 28, 2024 Team Status: Active Member Role Status Dates Dr. Kierra Lucio MD Primary Care Provider Active Start: August 28, 2024 Dr. Shaan Rojas MD Attending Provider Active S tart: August 28, 2024 COLTON Wetzel Referring Provider Active Star t: August 28, 2024 Team Status: Inactive Member Role Status Dates Dr. Kierra Lcuio MD Primary Care Provider Active Start: September 06, 2024 End: September 29, 2024 Self Referred Attending Provider Active Start: 2024 End: September 29, 2024 Team Status: Inactive Member Role Status Dates Dr. Kierra Lucio MD Primary Care Provider Active Start: October 01, 2024 End: October 01, 2024 COLTON Wetzel Attending Provider Active Star t: October 01, 2024 End: October 01, 2024 COLTON Wetzel Referring Provider Active Star t: October 01, 2024 End: October 01, 2024 Team Status: Active Member Role Status Dates Dr. Kierra Lucio MD Primary Care Provider Active Start: October 02, 2024 Dr. Eugene Blanca DPM Attending Provider Active Start: October 02, 2024 Dr. Eugene Blanca DPM Referring Provider Active Start: October 02, 2024 Goals (unrecognized section and content) Goals may be documented in a n alternate section INFORMATION SOURCE (unrecogn ized section and content) DATE CREATED AUTHOR 09/12/2024 [facility] DATE CREATED AUTHOR AUTHOR'S ORGANIZ ATION 10/07/2024 [facility] FOR RECORDS PERTAINING TO PATIENTS WHO ARE [...] BE BASED ON THE PRIMARY CLINICAL RECORDS. [employer] provides no warranty or guarantee of the accuracy or completeness of information in this document.
[2024-10-08] MEDS: Pantoprazole Sodium 40 MG in 0.9% Normal Saline (100mL MB+) 100 ML 330 MG IV (00:13)
[2024-10-08 00:46] LABS: Troponin T High Sens 2 HR 42 ng/L (<=14)
[2024-10-08] MEDS: Pantoprazole Sodium 80 MG in 0.9% Normal Saline (100mL Bag) 80 ML 10 MG CONT INF ×3 (01:30→22:30)
[2024-10-08] MEDS: 0.9% Saline Lock 10 ML Syringe IV ×2 (02:48→21:10)
[2024-10-08] MEDS: Furosemide 40 MG/4 ML Vial IV (02:48)
[2024-10-08 03:13] LABS: Troponin T High Sens 4 HR 50 ng/L (<=14)
[2024-10-08] MEDS: 0.9% Normal Saline (500mL Bag) 500 ML 15 ML IV (03:15)
--- OUTSIDE RECORDS SUMMARY | 2024-10-08 04:56 | XMS RPT_ITS | CCD ---
Author Organization [facility] Care Team Providers Care Naval Architect Name Role Phone Kierra Santiago MD Primary Care Provider Kierra Santiago MD Primary Care Provider Bety RN, Nancy Sarah Unavailable Bety RN, Nancy Sarah Unavailable Colón LUDLOW MACHINE OPERATOR.CASING MATERIAL WEIGHER, Anastasiia Unavailable Eric LUDLOW MACHINE OPERATOR.PET AMBASSADOR, Sheryl Unavailable Eric LUDLOW MACHINE OPERATOR.PET AMBASSADOR, Sheryl Belen Unavailable Eric LUDLOW MACHINE OPERATOR.PET AMBASSADOR, Shreyl Unavailable Dr. Kierra Santiago MD Primary Care Provider [phone] Luis ERICKSON, Dr. Jason Hilliard Admit Provider Luis ERICKSON, Dr. Jason Hilliard Attending Provider Dr. Jason Smith MD, Chi Referring Provider Evangelist JAVIER, Dr. Knight Other Provider Dr. Shaan Rojas MD Other Provider Luis ERICKSON, Dr. Jason Hilliard Other Provider Laura Armendariz Attending Provider Dr. Robb Giron DO Attending Provider Dr. Kierra Santiago MD Referring Provider Dr. Robb Giron DO Other Provider [phone] Roly Herrera MD Attending Provider Dr. Shaan Rojas MD Attending Provider Crystal ERICKSON, Dr. Garduno Referring Provider [phone] Javier ERICKSON, Dr. Dunham Other Provider Socrates SEGURA, Laura Referring Provider [phone] Ese Solano Attending Provider Ese Solano Referring Provider Roof AX SURVEY WORKER-C, Dominick H Attending Provider Julio Cesar AX SURVEY WORKER-C, Dominick H Referring Provider Luis ERICKSON, Dr. Jason Hilliard Other Provider Socrates SEGURA, Laura Attending Provider [phone] Eirc LUDLOW MACHINE OPERATOR.PET AMBASSADOR, Sheryl Unavailable Khadijah ERICKSON, Dr. Kierra Solis Primary Care Provider Khadijah ERICKSON, Dr. Kierra Solis Referring Provider [...] Unavailable TALAMPAS, KIERRA D Primary Care Unavailable MARGARETAMANDAI Referring Unavailable Khadijah ERICKSON, Dr. Kierra Solis Primary Care Provider [phone] Khadijah ERICKSON, Dr. Kierra Solis Referring Provider Friend , Dr. Zamudio Attending Provider Friend DO, Dr. Zamudio Other Provider [facility] AX SURVEY WORKERJoshuaCDominick Other Provider Crystal ERICKSON, Dr. Garduno Attending Provider Referred, Self Attending Provider Unavailable Evangelist DPM, Dr. Knight Attending Provider Evangelist HERNANDEZM, Dr. Knight Referring Provider Caren ERICKSON, Dr. Jarvis Emergency Provider Javier ERICKSON, Dr. Dunham Other Provider Toni ERICKSON, Dr. Kelsie Palmer Admit Provider Toni ERICKSON, Dr. Kelsie Palmer Attending Provider Hermelindoampas, Kierra D Primary Care Unavailable Roly Herrera Consulting Unavailable Kelsie Muñoz Admitting Unavailable Kelsie Muñoz Attending Unavailable Jaimie Vargas Admitting Unavailable Jaimie Vargas Consulting Unavailable David, Sukhdev Attending Unavailable Talampas, Kierra D Primary Care Unavailable Tavares Sargent Consulting Unavailable Robb Giron Attending Unavailable Talampas, Kierra D Referring Unavailable Talampas, Kierra D Primary Care Unavailable Suresh Merida Admitting Unavailable Talampas, Kierra D Primary Care Unavailable Laura Crowell Attending Unavailable David, Sukhdev Referring Unavailable Eugene Blanca Consulting Unavailable Suresh Merida Consulting Unavailable Shaan Rojas Consulting Unavailable Van Ridley Consulting Unavailable David, Sukhdev Consulting Unavailable Talampas, Kierra D Referring Unavailable Talampas, Kierra D Primary Care Unavailable Robb Giron Attending Unavailable Talampas, Kierra D Primary Care Unavailable Referred, Self Attending Unavailable Talampas, Kierra D Primary Care Unavailable Shaan Rojas Consulting Unavailable Beverly Wilhelm Attending Unavailable Ivett Johnson Admitting Unavailable Eugene Blanca Consulting Unavailable Ivett Johnson Consulting Unavailable Suresh Merida Admitting Unavailable Suresh Merida Consulting Unavailable Talampas, Kierra D Primary Care Unavailable Jaimie Vargas Attending Unavailable Sukhdev Hernandez Consulting Unavailable Van Ridley Consulting Unavailable Eugene Blanca Consulting Unavailable Shaan Rojas Consulting Unavailable Doron Wong Consulting Unavailable Talampas, Kierra D Primary Care Unavailable Socrates, Laura Attending Unavailable Roly Herrera Consulting Unavailable Shaan Rojas Referring Unavailable Shaan Rojas Attending Unavailable Talampas, Kierra D Primary Care Unavailable Crowell, Laura Attending Unavailable Crowell, Laura Referring Unavailable Talampas, Kierra D Primary Care Unavailable Ese Hillman Referring Unavailable Talampas, Kierra D Primary Care Unavailable Ese Hillman Attending Unavailable Talampas, Kierra D Primary Care Unavailable Roof, Dominick H Referring Unavailable Roof, Dominick H Attending Unavailable Crowell, Laura Attending Unavailable Crowell, Laura Referring Unavailable Talampas, Kierra D Primary Care Unavailable Roof, Dominick H Consulting Unavailable Talampas, Kierra D Primary Care Unavailable Roof, Dominick H Referring Unavailable Roof, Dominick Faria Attending Unavailable Talampas, Kierra D Primary Care Unavailable Roof, Dominick H Referring Unavailable Roof, Dominick H Attending Unavailable Talampas, Kierra D Primary Care Unavailable Crowell, Laura Attending Unavailable Crowell, Laura Referring Unavailable Sukhdev Hernandez Attending Unavailable Doron Wong Referring Unavailable Shaan Rojas Attending Unavailable Shaan Rojas Referring Unavailable Doron Wong Consulting Unavailable Doron Wong Attending Unavailable Talampas, Kierra D Referring Unavailable [...] Care Unavailable Roof, Dominick H Attending Unavailable Jaimie Vargas Consulting Unavailable Talampas, Kierra D Primary Care Unavailable Key Cano Attending Unavailable Alfredo Celaya Referring Unavailable Talampas, Kierra D Primary Care Unavailable Alfredo Celaya Attending Unavailable Crowell, Laura Attending Unavailable Talampas, Kierra D Primary Care Unavailable Talampas, Kierra D Referring Unavailable Talampas, Kierra D Primary Care Unavailable Crowell, Laura Attending Unavailable Talampas, Kierra D Referring Unavailable Waverly, Shaan Referring Unavailable Crystal, Shaan Attending Unavailable Talampas, Kierra D Primary Care Unavailable Talampas, Kierra D Primary Care Unavailable Crystal, Shaan Attending Unavailable Crowell, Laura Referring Unavailable Roly Herrera Attending Unavailable Talampas, Kierra D Primary Care Unavailable Crystal, Shaan Referring Unavailable Jaimie Vargas Attending Unavailable Crowell, Laura Attending Unavailable Talampas, Kierra D Primary Care Unavailable Luis, Jason Chi Referring Unavailable Luis, Jason Chi Admitting Unavailable Eugene Blanca Consulting Unavailable Crystal, Shaan Consulting Unavailable Luis, Jason Chi Consulting Unavailable Robb Giron Attending Unavailable Kelsie Muñoz Consulting Unavailable Talampas, Kierra D Primary Care Unavailable Beverly Wilhelm Attending Unavailable Koram, Ivett Veronique Admitting Unavailable Crystal, Shaan Consulting Unavailable Eugene Blanca Consulting Unavailable Koram, Ievtt Veronique Consulting Unavailable Beverly Wilhelm Consulting Unavailable Talampas, Kierra D Primary Care Unavailable Waverly, Shaan Attending Unavailable Crowell, Laura Referring Unavailable Talampas, [...] Attending Unavailable Luis, Jason Chi Referring Unavailable Larry Blancarey Consulting Unavailable Waverly, Shaan Consulting Unavailable Talampas, Kierra D Primary Care Unavailable Eugene Blanca Attending Unavailable Evangelist Eugene Referring Unavailable Talampas, Kierra D Primary Care Unavailable Jaimie Vargas Admitting Unavailable Jaimie Vargas Consulting Unavailable Sukhdev Hernandez Attending Unavailable Tavares Sargent Consulting Unavailable Sukhdev Hernandez Consulting Unavailable Talampas, Kierra D Primary Care Unavailable Referred, Self Attending Unavailable Shaan Rojas Attending Unavailable Beverly Wilhelm Referring Unavailable Korgadiel, Ivett Veronique Attending Unavailable Shaan Rojas Referring Unavailable Kelsie Muñoz L Attending Unavailable White Kelsie L Consulting Unavailable CrowellLaura swartz Attending Unavailable White, Kelsie L Referring Unavailable Koram, Ivett Veronique Referring Unavailable Jaimie Vargas Attending Unavailable Tavares Sargent Attending Unavailable Friend, Robb Consulting Unavailable Friend, Robb Attending Unavailable Talampas, Kierra D Referring Unavailable Talampas, Kierra D Primary Care Unavailable Talampas, Kierra D Referring Unavailable Friend, Robb Attending Unavailable Friend, Robb Consulting Unavailable Talampas, Kierra D Primary Care Unavailable Talampas, Kierra D Primary Care Unavailable Shaan Rojas Attending Unavailable Laura Crowell Referring Unavailable Suresh Merida Attending Unavailable Talampas, Kierra D Primary Care Unavailable Matheus Fabian Attending Unavailable Allergies Allergy Classification Reported Allergen(s) Allergy Type Date of Onset Reaction(s) Facility Angiotensin Converting Enzyme (RADHA) Inhibitors (4 sources) quinapril Drug Allergy 5 Unknown [facility] Calcium Channel Blockers (2 sources) Verapamil Drug Allergy 5 Unknown [facility] Sulfonamides (antibiotic) (2 sources) Sulfonamides (Antibiotic) Drug Allergy 5 Unknown [facility] (20 sources) benazepril; Translations: [BENAZEPRIL HCL] Drug Allergy 5 Unknown [facility] Work Phone: (20 sources) quinapril; Translations: [QUINAPRIL] Drug Allergy 5 Unknown [facility] Work Phone: [phone] (20 sources) Sulfonamides (Antibiotic); Translations: [SULFA (SULFONAMIDE ANTIBIOTICS)] Propensity to adverse reactions to drug 5 Unknown [facility] Work Phone: [phone] (20 sources) Verapamil; Translations: [VERAPAMIL] Drug Allergy 5 Unknown [facility] Work Phone: [phone] (13 sources) metFORMIN Drug Allergy 3 Intolerance [facility] (20 sources) DULoxetine; Translations: [DULOXETINE] Drug Allergy 4 Intolerance [facility] (6 sources) benazepril Drug Allergy 5 DOESNT REMEMBER [facility] (6 sources) Sulfonamides (Antibiotic) Allergy to substance 5 Hives [facility] (1 source) benazepril Drug Allergy 5 [facility] (1 source) quinapril Drug Allergy 5 [facility] (1 source) Sulfonamides (Antibiotic) Drug allergy (disorder) 5 [facility] (1 source) Verapamil Drug Allergy 5 [facility] Medications Current Medications Medication Drug Class(es) Dates Sig (Normalized) Sig (Original) acetaminophen 500 mg oral capsule (20 sources) Start: 10-07-2024 take 1 capsule by mouth at bedtime as needed for pain Acetaminophen 500 mg capsule Active 500 mg PO AT BEDTIME as needed for pain October 07, 2024 12:00am Start: 01-27-2024 acetaminophen (TYLENOL) 500 mg tablet [...] oral tablet (1 source) Penicillin-class Antibacterial Start: 4 End: 4 take 1 tablet by mouth twice daily amoxicillin-clavula chase potassium (AUGMENTIN) 875-125 mg per tablet Take 1 tablet by mouth two times a day for 5 days. 10 tablet 0 12/12/2023 12/17/2023 Active clopidogrel 75 mg oral tablet (20 sources) P2Y12 Platelet Inhibitor Start: 4 End: 5 take 1 tablet by mouth once daily Clopidogrel 75 mg Tablet Active 75 mg PO DAILY April 05, 2024 1:00am doxycycline monohydrate 100 mg oral tablet (1 source) Tetracycline-class Drug Start: 4 End: 4 take 1 tablet by mouth twice daily doxycycline monohydrate 100 mg tablet Take 1 tablet by mouth two times a day for 5 days. 10 tablet 0 12/12/2023 12/17/2023 Active ferrous sulfate 325 mg oral tablet (20 sources) Start: 4 take 1 tablet by mouth once daily Ferrous Sulfate (Ferosul) 325 mg (65 mg iron) Tablet Active 325 mg PO DAILY@1200 30 February 03, 2024 12:00am Comment on above: Take 325 mg by mouth . fluticasone propionate 0.05 mg/actuat metered dose nasal spray (20 sources) Corticosteroid Start: Fluticasone Propionate 50 mcg/actuation spray,suspension Active NMA INTRANASAL October 07, 2024 12:00am Start: 12-31-2023 End: 08-17-2024 Fluticasone Propionate 50 mc g/actuation spray,suspension Discontinued 2 NMA INTRANASAL DAILY as [...] 2 Sprays in each nostril once daily. furosemide 40 mg oral tablet (20 sources) Loop Diuretic Start: 02-24-2024 take 1 tablet by mouth once daily Furosemide 40 mg Tablet Active 40 mg PO DAILY 60 March 19, 2024 4:39pm Start: 01-03-2024 End: 03-19-2024 take 1 tablet by mouth twice daily Furosemide 40 mg Tablet Discontinued 40 mg PO TWICE DAILY 60 January 03, 2024 12:00am March 19, 2024 4:40pm gabapentin 100 mg oral capsule (20 sources) Anti-epileptic Agent Start: 10-07-2024 take 1 capsule by mouth three times daily Gabapentin 100 mg capsule Active 100 mg PO THREE TIMES A DAY October 07, 2024 12:00am Start: 04-05-2024 End: 07-20-2024 take 1 capsule by mouth three times daily at mealtime Gabapentin 100 mg Capsule Discontinued 100 mg PO 3 TIMES DAILY WITH MEALS 90 April 05, 2024 1:00am July 20, 2024 4:21pm Start: 01-27-2024 End: 10-31-2024 take 1 capsule by mouth twice daily Gabapentin 100 mg capsule Discontinued 100 mg PO TWICE A DAY 0 July 20, 2024 4:14pm October 07, 2024 11:45pm Start: 01-27-2024 End: 03-07-2024 take 2 capsules by mouth twice daily at mealtime Gabapentin 100 mg Capsule Discontinued 200 mg PO TWICE DAILY WITH MEALS 0 January 27, 2024 12:00am March 07, 2024 10:50pm glimepiride 2 mg oral tablet (20 sources) [...] chloride 598 mg delayed release oral tablet (19 sources) Start: 08-17-2024 Magnesium Chlo ride [Magnesium [...] on above: Take 3 tablets by mo [facility] twice daily. Take 75 mg by mouth twice daily. Take 1.5 tablets by mouth two times a day. 24 hr oxybutynin chloride 10 mg extended release oral tablet (20 sources) Cholinergic Muscarinic Antagonist Start: 3 End: take 1 tablet by mouth once daily Oxybutynin Chloride 10 mg tablet extended release 24hr Active 10 mg PO DAILY September 23, 2023 12:00am Comment on above: [facility] Take 10 mg by mouth [...] Active Start: 04-05-2024 take 1 tablet by jorge twice daily Pantoprazole 40 mg Tablet,Delayed Release (Dr/Ec) Active 40 mg PO TWICE A DAY 60 30 April 05, 2024 1:00am potassium chloride 20 meq extended release oral tablet (20 sources) Start: 08-20-2024 take 1 tablet by mouth twice daily Potassium Chloride 20 mEq tablet extended release Active 20 meq PO TWICE A DAY August 20, 2024 12:00am Start: 08-20-2024 take 1 tablet by jorge once daily Potassium Chloride 20 mEq tablet [...] meq PO TWICE DAILY WITH MEALS 60 30 April 05, 2024 1:00am July 20, 2024 4:21pm tiZANidine 2 mg oral tablet (20 sources) Central alpha-2 Adrenergic Agonist Start: 06-19-2024 take 1 tablet by mouth every eight hours as needed tiZANidine (ZANAFLEX) 4 mg tablet Take 1 tablet by mouth every 8 hours as needed. 30 tablet 2 06/19/2024 Active Start: 04-05-2024 End: 10-07-2024 take 1 tablet by mouth every eight hours as needed for muscle spasms Tizanidine 2 mg Tablet Active 2 mg PO EVERY 8 HOURS as needed for Muscle Spasm October 07, 2024 12:00am Start: 03-09-2024 End: 04-05-2024 take 1 tablet [...] Drug Class(es) Dates Sig (Normalized) Sig (Original) Qgcwy-Etjl-Mhknj-Co llag-Mv-Min (Ronaldo (With Collagen)) 7-7-1.5 gram Powder In Packet (6 sources) Start: 02-03-2024 End: 03-07-2024 Vocpr-Tdfh-Xbydw-Col lag-Mv-Min (Ronaldo (With Collagen)) 7-7-1.5 gram Powder [...] by mouth. cephalexin 500 mg oral capsule (6 sources) Cephalosporin Antibacterial Start: End: take 1 [...] th. Take 4,200 mg by jorge th. Cinnamon Preparation (4 sources) Non-Standardized Food Allergenic Extract Start: 08-17-2024 End: 10-07-2024 Cinnamon Discontinued 2 {tbl} PO TWICE A DAY August 17, 2024 12:00am October 07, 2024 11:40pm Start: 08-17-2024 Cinnamon Activ e 2 {tbl} PO TWICE A DAY August 17, 2024 12:00am codeine phosphate 2 mg/ml / guaiFENesin 20 [...] mg by mouth . cranberry fruit concentrate (6 sources) Start: 03-07-2024 End: 04-05-2024 cranberry fruit [...] 100million cell tab (3 sources) End: 08-02-2022 cranberry-B.uvnfnodi-E-No phos 480 mg-20 mg- 100million cell tab [...] Active docusate sodium 50 mg / sennosides, group home 8.6 mg oral tablet (19 sources) Start: 01-27-2024 End: 05-14-2024 Sennosides-Docusate Sodium [...] iron) tab Take by mouth. 04/17/2024 Discontinued Food Supplemt, Lactose-Reduc ed (Ensure Plus High Protein) 0.08 gram-1.5 kcal/mL Liquid (6 sources) Start: 01-27-2024 End: 02-03-2024 Food Supplemt, Lactose-Reduced (Ensure Plus High Protein) 0.08 gram-1.5 kcal/mL Liquid Discontinued 120 mL PO 3 TIMES DAILY WITH MEALS 0 January 27, 2024 12:00am February 03, 2024 2:23pm guaiFENesin 400 mg / phenylephrine hydrochloride 10 mg oral tablet (20 sources) alpha-1 Adrenergic Agonist End: 02-23-2024 PHENYLephrine-guaiFENe sin (MUCUS RELIEF PE) 10-400 mg tab Take by mouth. 02/23/2024 Discontinued Comment on above: Take by mouth. hydroCHLOROthiazide 12.5 mg / losartan potassium 100 mg oral tablet (20 sources) Thiazide Diuretic, Angiotensin 2 Receptor Hillary Start: 08-17-2024 End: 08-20-2024 Losartan-Hydrochloroth iazide 100-12.5 mg tablet Discontinued 1 {tbl} PO [...] directed Miscellaneous Medical Supply (20 sources) Start: End: take 1 dose by mouth twice daily Miscellaneous Medical Supply Take 1 Each by mouth two times a day. Biote [place] 3+CoQ10 --30 mg of CoQ10 01/11/2024 06/04/2024 Discontinued (Course of therapy completed) Start: 01-11-2024 take 1 dose by mouth twice daily Miscellaneous Medical Supply Take 1 Each by mouth two times a day. Biote [place] 3+CoQ10 --30 mg of CoQ10 01/11/2024 Active Multivitamin capsule (3 sources) End: 08-02-2022 take 1 capsule by mouth once daily Multivitamin capsule Take 1 capsule by mouth once daily. 0 08/02/2022 Discontinued take 1 capsule by mouth once dyana ly Multivitamin capsule Take 1 capsule by mouth once daily. 0 Active Comment on above: Take 1 capsule by mo ut[facility] once daily. OMEGA-3 FATTY ACIDS/FISH OIL (OMEGA [...] Comment on above: Take 1 capsule by [facility] daily before breakfast. 1/2 hr before meal. [...] Active Comment on above: Take by mouth. sertraline 25 mg oral tablet (20 sources) Serotonin Reuptake Inhibitor Start: 4 End: 5 take 1 tablet by mouth once daily Sertraline 25 mg tablet Discontinued 25 mg PO DAILY March 07, 2024 1:00am October 07, 2024 11:40pm simvastatin 80 mg oral tablet (20 sources) [...] by mouth. vancomycin 125 mg oral capsule (6 sources) Glycopeptide Antibacterial Start: 5 End: 5 take 1 capsule by mouth every six hours Vancomycin 125 mg capsule Discontinued 125 mg PO EVERY 6 HOURS 40 10 June 20, 2024 1:00am June 29, 2024 [...] on above: Take 1,000 mcg by [facility] once daily. vitamin E mixed/tocotrienol (VITAMIN E [...] Date Documented Da te Episodic/Chronic Abdominal pain (6 sources) Epigastric pain; Translations: [Epigastric pain] 10-01-2023 Episodic Acute posthemorrhagic anemia (3 sources) Acute posthemorrhagic anemia; Translations: [Acute posthemorrhagic anemia] Onset: 5 10-07-2024 Episodic Adjustment disorders (1 source) Stress and adjustment reaction; Translations: [Adjustment disorder with other symptoms] 12-22-2022 Chronic Anxiety disorders (6 sources) Anxiety; Translations: [Anxiety disorder, unspecified] 01-05-2024 Chronic Cardiac dysrhythmias (20 sources) Atrial fibrillation; Translations: [Unspecified atrial fibrillation] Onset: 4 10-10-2023 Chronic Chronic kidney disease (9 sources) Chronic kidney disease stage 3B ; Translations: [Stage 3b chronic kidney disease (HCC)] Onset: 5 07-17-2024 Chronic Chronic ulcer of skin (10 sources) Pressure ulcer of right heel, stage 2; Translations: [Pressure ulcer, heel] Onset: 4 02-23-2024 Chronic Coagulation and hemorrhagic disorders (20 sources) Factor V deficiency; Translations: [Hereditary deficiency of other clotting factors] Onset: 3 Chronic Congestive heart failure; nonhypertensive (20 sources) Acute exacerbation of chronic congestive heart failure; Translations: [Heart failure, unspecified] Onset: 4 01-11-2024 Chronic Coronary atherosclerosis and other heart disease (2 sources) Subendocardial ischemia; 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-07-2024 Chronic Deficiency and other anemia (8 sources) Anemia; Translations: [Anemia, unspecified] 04-02-2024 Episodic Deficiency and other anemia (6 sources) Iron deficiency anemia; Translations: [Iron deficiency anemia, unspecified] 01-28-2024 Episodic Diabetes mellitus with complications (20 sources) Type 2 diabetes mellitus; Translations: [Type 2 diabetes mellitus with hyperglycemia] Onset: 3 Chronic Diabetes mellitus without complication (9 sources) Diabetes mellitus; Translations: [Type 2 diabetes mellitus without complications] Onset: 4 03-19-2024 Chronic Disorders of lipid metabolism (20 sources) Hyperlipidemia; Translations: [Hyperlipidemia, unspecified] Onset: 3 Chronic Esophageal disorders (16 sources) Gastroesophageal reflux disease; Translations: [Gastro-esophageal reflux disease without esophagitis] Onset: 4 03-19-2024 Chronic Esophageal disorders (6 sources) Esophageal disorders Essential hypertension (20 sources) Essential hypertension; Translations: [Essential (primary) hypertension] Onset: 3 Chronic Fluid and electrolyte disorders (12 sources) Hyponatremia; Translations: [Hypo-osmolality and hyponatremia] Onset: 4 10-11-2023 Episodic Gangrene (9 sources) Atherosclerosis of arteries of the extremities; Translations: [Atherosclerosis of [place] arteries of extremities with gangrene, unspecified extremity] Onset: 4 04-12-2024 Chronic Gastroduodenal ulcer (except hemorrhage) (18 sources) Ulcer of duodenum; Translations: [Duodenal ulcer, unspecified as acute or chronic, without hemorrhage or perforation] Onset: 5 04-17-2024 Chronic Gastroduodenal ulcer (except hemorrhage) (1 source) Acute gastric ulcer; Translations: [Acute gastric ulcer without hemorrhage or perforation] 04-17-2024 Episodic Gastrointestinal hemorrhage (3 sources) Acute upper gastrointestinal hemorrhage; Translations: [Gastrointestinal hemorrhage, unspecified] Onset: 5 10-07-2024 Episodic Heart valve disorders (18 sources) Aortic valve disorder; Translations: [Nonrheumatic aortic valve disorder, unspecified] Onset: 5 04-23-2024 Chronic Infective arthritis and osteomyelitis (except that caused by tuberculosis or sexually transmitted disease) (11 sources) Acute osteomyelitis of ankle and/or foot; Translations: [Other acute osteomyelitis, right ankle and foot] Onset: 4 04-12-2024 Chronic Occlusion or stenosis of precerebral arteries (20 sources) Carotid atherosclerosis; Translations: [Occlusion and stenosis of unspecified carotid artery] Onset: 3 Chronic Osteoarthritis (7 sources) Osteoarthritis; Translations: [Unspecified osteoarthritis, unspecified site] Onset: 4 03-08-2024 Chronic Other aftercare (15 sources) Long-term current use of anticoagulant; Translations: [snf (current) use of anticoagulants] 06-20-2024 Episodic Other aftercare (6 sources) Surgical follow-up; Translations: [Encounter for surgical [...] and grafts] 04-17-2024 Chronic Other circulatory disease (12 sources) Disorder of carotid artery; Translations: [Disorder [...] without residual deficits] Episodic Other circulatory disease (6 sources) Elevated blood-pressure reading without diagnosis of hypertension; Translations: [Elevated blood-pressure reading, without diagnosis of hypertension] 01-27-2024 Episodic Other connective tissue disease (1 source) Cramp in lower limb; Translations: [Cramp and spasm] 01-11-2024 Episodic Other connective tissue disease (7 sources) Foot pain; Translations: [Pain in unspecified foot] 03-01-2024 Episodic Other connective tissue disease (8 sources) Spasm; Translations: [Other muscle spasm] 03-19-2024 Episodic Other connective tissue disease (6 sources) Pain in lower limb; Translations: [Pain in right leg] 01-21-2024 Episodic Other connective tissue disease (8 sources) Neuropathic pain; Translations: [Neuralgia and neuritis, unspecified] 01-28-2024 Episodic Comment on above: Right foot and ankle Other connective tissue disease (1 source) Pain in right lower leg; Translations: [Pain in right lower leg] Onset: 5 Episodic Other connective tissue disease (1 source) Pain in left lower leg; Translations: [Pain in left lower leg] Onset: 5 Episodic Other diseases of bladder and urethra (9 sources) Overactive bladder; Translations: [Overactive bladder] Chronic [...] diarrhea] Onset: 5 Chronic Other gastrointestinal disorders (18 sources) Diarrhea; Translations: [Diarrhea, unspecified] 06-12-2024 Episodic [...] immune mechanism; Translations: [History of anemia] Onset: 5 Episodic Other inflammatory condition of skin (1 source) Erythema; Translations: [Erythematous condition, unspecified] 01-11-2024 Episodic Other injuries and conditions due to external causes (1 source) Injury of toe of right foot; Translations: [Unspecified injury of right foot, subsequent encounter] Episodic Other liver diseases (20 sources) Steatosis of liver; Translations: [Fatty (change of) liver, not elsewhere classified] Onset: 3 Chronic Other liver diseases (8 sources) Enzyme level - finding; Translations: [Transaminitis] [...] Chronic Other nutritional; endocrine; and metabolic disorders (6 sources) Body mass index 25-29 - overweight; Translations: [Overweight] 03-08-2024 Episodic Other screening for suspected conditions (not mental disorders or infectious disease) (13 sources) Prolonged QT interval; Translations: [Abnormal electrocardiogram [ECG] [EKG]] Onset: 4 01-28-2024 Episodic Other skin disorders (2 sources) Foot callus; Translations: [Corns and callosities] Episodic Other skin disorders (1 source) Lesion of face; Translations: [Disorder of the skin and subcutaneous tissue, unspecified] 06-07-2023 Episodic Other upper respiratory disease (8 sources) Allergic rhinitis; Translations: [Allergic rhinitis, unspecified] 03-19-2024 Chronic Other upper respiratory disease (1 source) Allergic rhinitis, unspecified; Translations: [Allergic rhinitis, unspecified] Onset: 4 Chronic Other upper respiratory infections (3 sources) Acute sinusitis; Translations: [Other acute sinusitis] 06-07-2023 Episodic Yuridia-; endo-; and myocarditis; cardiomyopathy (except that caused by tuberculosis or sexually transmitted disease) (7 sources) Dilated cardiomyopathy; Translations: [Dilated cardiomyopathy] Onset: 4 01-27-2024 Chronic Peripheral and visceral atherosclerosis (20 sources) Peripheral vascular disease; Translations: [Peripheral vascular disease, unspecified] Onset: 4 Resolved: 5 06-07-2023 Chronic Comment on above: 01/2024 fem-pop bypas s with PTFE03/2024 revision jump graft from fem-pop bypass to distal PT with reverse GSV; 2 compartment fasciotomy Pleurisy; pneumothorax; pulmonary collapse (2 sources) Pleural effusion; Translations: [Pleural effusion, not elsewhere classified] 10-07-2024 Episodic Pneumonia (except that caused by tuberculosis or [...] Dr. Lily Rojas 01/19/[address] Lily Rojas R LEG Thyroid disorders (20 sources) Subclinical hypothyroidism; [...] Translations: [Anemia, unspecified] Onset: 04-18-2024 Episodic Gangrene (17 sources) Gangrenous disorder; Translations: [Gangrene, not elsewhere classified] Onset: 02-23-2024 02-23-2024 Episodic Heart valve disorders (20 sources) Heart murmur; Translations: [Cardiac murmur, unspecified] Onset: 07-01-2022 Episodic Immunizations and screening for infectious disease (10 sources) Patient encounter status; Translations: [Encounter for immunization] Onset: 11-14-2023 Episodic Malaise and fatigue (17 sources) Asthenia; Translations: [Weakness] Onset: 02-23-2024 02-23-2024 Episodic Nonspecific chest pain (4 sources) Chest pain; Translations: [Chest pain, unspecified] Onset: 11-14-2023 11-14-2023 Episodic Other aftercare (1 source) Other intermediate (current) drug therapy; Translations: [Encounter for long-term current use of medication] Onset: 12-27-2023 Episodic Other aftercare (1 source) 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; Translations: [snf (current) [...] 02-14-2024 Episodic Respiratory failure; insufficiency; arrest (adult) (7 sources) Acute hypoxemic respiratory failure; Translations: [Acute respiratory failure with hypoxia] Onset: 01-03-2024 01-11-2024 Episodic Skin and subcutaneous tissue infections (14 sources) Cellulitis; Translations: [Cellulitis, unspecified] Onset: 02-05-2024 03-21-2024 Episodic Spondylosis; intervertebral disc disorders; other back problems (1 source) Thoracic back pain; Translations: [Dorsalgia, unspecified] 10-10-2023 Episodic Superficial injury; contusion (9 sources) Hematoma of lower leg; Translations: [Contusion of unspecified lower leg, initial encounter] Onset: 04-18-2024 03-21-2024 Episodic Results Test Name Value Interpretation Reference Range Facility L499.0042on 10-08-2024 Trop T High Sen 42 ng/L High <=14 [facility] Comment on above: Performed By: #### L 499.0042 ####[facility] [address] [place], [address] L499.0043on 10-08-2024 Trop T High Sen 50 ng/L High <=14 [facility] Comment on above: Performed By: #### L 499.0043 ####[facility] [address] [place], [place], [id number] Magnesiumon 10-08-2024 Magnesium [Mass/Vol] 2.0 mg/dL Normal 1.5-2.2 [facility] Comment on above: Order Comment: Comme nts: may add to ED labs Performed By: #### L 501.5200 ####[facility] [address] [place], [address] Troponin T.cardiac [Mass/vol ume] in Serum or Plasma by High sensitivity methodOrdered By: Matheus Fabian on 10-08-2024 Troponin T.cardiac High sensitivity method [Mass/Vol] 42 ng/L High <14 [facility] Absolute lymphocyte countOrd ered By: Matheus Fabian on 10-07-2024 Lymphocytes Auto (Unsp spec) [#/Vol] 1.35 10*3/uL 0.83-4.51 [facility] Absolute neutrophil countOrd ered By: Matheusjorge Fabian on 10-07-2024 Neutrophils (Bld) [#/Vol] 5.3 10*3/uL 2.0-7.7 [facility] Anion gap in Serum or Plasma Ordered By: Matheus Fabian on 10-07-2024 Anion gap [Moles/Vol] 16 mmol/L High 5-15 [facility] Automated lymphocyte count a s percentage of total leukocytesOrdered By: Matheus Fabian on 10-07-2024 Lymphocytes/100 WBC Auto (Unsp spec) 18.2 % Low 19-41 [facility] BFFPon 10-07-2024 FFP Normal [facility] Comment on above: Result Comment: [id number] AP FFP TRANSFUSED 10/08/24 0305 Performed By: #### B FFP ####[facility] [address] [place], [place], [address] BRCon 10-07-2024 RC Normal [facility] Comment on above: Result Comment: [id number] AP RC TRANSFUSED 10/08/24 [id number] AP RC READY Performed By: #### B SETH BTS ####[facility] [address] [place], [address] BUN/creatinine ratioOrdered By: Matheus Fabian on 10-07-2024 Urea nitrogen/Creatinine [Mass ratio] 24.9 mg/mg High - [facility] Basic Metabolic Profile (BMP )on 10-07-2024 BUN/CRE 24.9 RATIO High - [facility] Comment on above: Performed By: #### L 501.4021, L300.3900, L500.2500, L100.0100, L503.7505 ####[facility] [address] [place], [address] Calcium [Mass/Vol] 8.6 mg/dL Normal 7.6-11.0 [facility] Comment on above: Performed By: #### L 501.4021, L300.3900, L500.2500, L100.0100, L503.7505 ####[facility] [address] [place], [address] Chloride [Moles/Vol] 102 mmol/L Normal 98-108 [facility] Comment on above: Performed By: #### L 501.4021, L300.3900, L500.2500, L100.0100, L503.7505 ####[facility] [address] [place], [address] CO2 [Moles/Vol] 16.2 mmol/L Low 21.0-32.0 [facility] Comment on above: Performed By: #### L 501.4021, L300.3900, L500.2500, L100.0100, L503.7505 ####[facility] [address] [place], [address] Creatinine [Mass/Vol] 1.46 mg/dL High 0.70-1.20 [facility] Comment on above: Performed By: #### L 501.4021, L300.3900, L500.2500, L100.0100, L503.7505 ####[facility] [address] [place], [address] ECRCL 26.99 ml/min Low 50-250 [facility] Comment on above: Performed By: #### L 501.4021, L300.3900, L500.2500, L100.0100, L503.7505 ####[facility] [address] [place], [address] GAP 16 High 5-15 [facility] Comment on above: Performed By: #### L 501.4021, L300.3900, L500.2500, L100.0100, L503.7505 ####[facility] [address] [place], [address] GFR/1.73 sq M.predicted among non-blacks MDRD (S/P/Bld) [Vol rate/Area] 35 mL/min/{1.73_m2} Low >60 [facility] Comment on above: Result Comment: mL/m in/1.73m2 CKD-EPI Creatinine Equation (2020) Performed By: #### L 501.4021, L300.3900, L500.2500, L100.0100, L503.7505 ####[facility] [address] [place], [address] Glucose [Mass/Vol] 140 mg/dL High 70-99 [facility] Comment on above: Performed By: #### L 501.4021, L300.3900, L500.2500, L100.0100, L503.7505 ####[facility] [address] [place], [address] Potassium [Moles/Vol] 3.9 mmol/L Normal 3.3-5.1 [facility] Comment on above: Result Comment: Hemo lysis present, Results??could be affected.?? Performed By: #### L 501.4021, L300.3900, L500.2500, L100.0100, L503.7505 ####[facility] [address] [place], [address] Sodium [Moles/Vol] 134 mmol/L Normal 133-145 [facility] Comment on above: Performed By: #### L 501.4021, L300.3900, L500.2500, L100.0100, L503.7505 ####[facility] [address] [place], [address] Urea nitrogen [Mass/Vol] 36 mg/dL High 4-19 [facility] Comment on above: Performed By: #### L 501.4021, L300.3900, L500.2500, L100.0100, L503.7505 ####[facility] [address] [place], [address] Basophil percentageOrdered B y: Matheus Fabian on 10-07-2024 Basophils/100 WBC (Bld) 0.3 % 0-1 [facility] Blood manual differential co mment interpretation (narrative result)Ordered By: Matheus Fabian on 10-07-2024 Manual differential comment Warren (Bld) [Interp] SCANNED [facility] Blood polychromasia detectio n by light microscopyOrdered By: Matheus Fabian on 10-07-2024 Polychromasia LM Ql (Bld) 2+ [facility] CBC W/Diff, Automatedon 06-0 Anisocytosis Ql (Bld) 2+ Normal [facility] Comment on above: Performed By: #### L 501.4021, L300.3900, L500.2500, L100.0100, L503.7505 ####[facility] [address] [place], [address] POLYCHROMASIA 2+ Normal [facility] Comment on above: Performed By: #### L 501.4021, L300.3900, L500.2500, L100.0100, L503.7505 ####[facility] [address] [place], [address] PLT EST ADEQUATE Normal ADEQ [facility] Comment on above: Performed By: #### L 501.4021, L300.3900, L500.2500, L100.0100, L503.7505 ####[facility] [address] [place], [address] SMEAR COMMENT SCANNED Normal [facility] Comment on above: Performed By: #### L 501.4021, L300.3900, L500.2500, L100.0100, L503.7505 ####[facility] [address] [place], [address] Carbon dioxide, total [Moles /volume] in Central venous bloodOrdered By: Matheus Fabian on 10-07-2024 CO2 [Moles/Vol] 16.2 mmol/L Low 21.0-32.0 [facility] Chest PA and Lateralon 10-07 Chest PA and Lateral Normal [facility] Chloride assayOrdered By: Shreyas Fabian on 10-07-2024 Chloride [Moles/Vol] 102 mmol/L 98-108 [facility] Emergency Department Summary on 10-07-2024 Emergency Department Summary Normal [facility] Eosinophil percentageOrdered By: Matheus Fabian on 10-07-2024 Eosinophils/100 WBC (Bld) 0.4 % 0-5 [facility] Erythrocyte distribution wid th ratioOrdered By: Matheus Fabian on 10-07-2024 Erythrocyte distribution width (RBC) [Ratio] 19.2 % High 11.6-14.6 [facility] Erythrocyte distribution wid th standard deviationOrdered By: Matheus Fabian on 10-07-2024 Erythrocyte distribution width (RBC) [Ratio] 72.3 fl High 35.1-43.9 [facility] Glomerular filtration rate ( GFR) estimation/1.73 sq m using serum, plasma, or whole bOrdered By: Matheus Fabian on 10-07-2024 GFR/1.73 sq M.predicted among non-blacks MDRD (S/P/Bld) [Vol rate/Area] 35 mL/min/{1.73_m2} Low >60 [facility] Comment on above: mL/min/1.73m2 CKD-EP I Creatinine Equation (2020) H AND P Exam - Hospitaliston 10-07-2024 H&P Exam - Hospitalist Normal [facility] Hematocrit Auto (Bld) [Volum e fraction]Ordered By: Matheus Fabian on 10-07-2024 Hematocrit (Bld) [Volume fraction] 20.6 % Low 37-47 [facility] Hemoglobin measurementOrdere d By: Matheus Fabian on 10-07-2024 Hemoglobin (Bld) [Mass/Vol] 6.5 g/dL Low 12.0-15.0 [facility] Immature granulocytes/100 WB C Auto (Bld)Ordered By: Matheus Fabian on 10-07-2024 Immature granulocytes/100 WBC (Bld) 0.400 % 0.0-0.9 [facility] Comment on above: IG% - Immature Granu locytes (promyelocytes, myelocytes and metamyelocytes) > 1% indicates that a LEFT SHIFT is Present. International normalized rat io (INR) calculationOrdered By: Matheus Fabian on 10-07-2024 INR Coag (Bld) [Relative time] 2.7 {INR} [facility] L501.4021on 10-07-2024 Trop T High Sen 46 ng/L High <=14 [facility] Comment on above: Performed By: #### L 501.4021, L300.3900, L500.2500, L100.0100, L503.7505 ####[facility] [address] [place], [place], [address] L503.7505on 10-07-2024 Natriuretic peptide B (Bld) [Mass/Vol] 2304 pg/mL High <=1800 [facility] Comment on above: Result Comment: Hear t Failure Unlikely: < 300 pg/mLHeart Failure Likely< 50 Years: > 450 pg/mL50-75 Years: > 900 pg/mL>75 Years: > 1800 pg/mL Performed By: #### L 501.4021, L300.3900, L500.2500, L100.0100, L503.7505 ####[facility] [address] [place], [address] Laboratory - Hematology and Cell countsOrdered By: Matheus Fabian on 10-07-2024 Anisocytosis Ql (Bld) 2+ [facility] MCV (mean corpuscular volume ) determinationOrdered By: Matheus Fabian on 10-07-2024 MCV (RBC) [Entitic vol] 106.7 fL High 81-99 [facility] Magnesium measurement (mass/ volume)Ordered By: Kelsie Muñoz on 10-07-2024 Magnesium (Unsp spec) [Mass/Vol] 2.0 mg/dL 1.5-2.2 [facility] Mean corpuscular hemoglobin (MCH) determinationOrdered By: Matheus Fabian on 10-07-2024 MCH (RBC) [Entitic mass] 33.7 pg High 27.0-32.0 [facility] Mean corpuscular hemoglobin concentration (MCHC) determinationOrdered By: Matheus Fabian on 10-07-2024 MCHC (RBC) [Mass/Vol] 31.6 g/dL Low 32-36 [facility] Mean platelet volume determi nationOrdered By: Matheus Fabian on 10-07-2024 Platelet mean volume (Bld) [Entitic vol] 11.5 fL 6.2-12.0 [facility] Monocyte percentageOrdered B y: Matheus Fabian on 10-07-2024 Monocytes/100 WBC (Bld) 8.9 % 0-10 [facility] Natriuretic peptide.B prohor dolores N-Terminal [Mass/volume] in Serum or PlasmaOrdered By: Matheus Fabian on 10-07-2024 Natriuretic peptide.B prohormone N-Terminal [Mass/Vol] 2304 pg/mL High <1800 [facility] Comment on above: Heart Failure Unlike ly: < 300 pg/mLHeart Failure Likely< 50 Years: > 450 pg/mL50-75 Years: > 900 pg/mL>75 Years: > 1800 pg/mL Neutrophil percentageOrdered By: Matheus Fabian on 10-07-2024 Neutrophils/100 WBC (Bld) 71.8 % High 47-70 [facility] Nucleated red blood cell per centageOrdered By: Matheus Fabian on 10-07-2024 Nucleated RBC/100 WBC (Bld) [Ratio] 1.5 % 0-5 [facility] Platelet countOrdered By: Shreyas Fabian on 10-07-2024 Platelets (Bld) [#/Vol] 184 10*3/uL 150-450 [facility] Platelet estimateOrdered By: Matheus Fabian on 10-07-2024 Platelets LM Ql (Bld) ADEQUATE ADEQ [facility] Potassium measurement (mass/ volume)Ordered By: Matheus Fabian on 10-07-2024 Potassium (Unsp spec) [Mass/Vol] 3.9 mmol/L 3.3-5.1 [facility] Comment on above: Hemolysis present, R esults could be affected. Prothrombin Time w/INRon INR Coag (PPP) [Relative time] 2.7 {INR} Normal [facility] Comment on above: Performed By: #### L 501.4021, L300.3900, L500.2500, L100.0100, L503.7505 ####[facility] [address] [place], [address] PT Coag (PPP) [Time] 29.4 s High 11.7-14.9 [facility] Comment on above: Performed By: #### L 501.4021, L300.3900, L500.2500, L100.0100, L503.7505 ####[facility] [address] [place], [address] Prothrombin timeOrdered By: Matheus Fabian on 10-07-2024 PT Coag (PPP) [Time] 29.4 s High 11.7-14.9 [facility] RBC Auto (Bld) [#/Vol]Ordere d By: Matheus Fabian on 10-07-2024 RBC (Bld) [#/Vol] 1.93 10*6/uL Low 4.2-5.4 [facility] Serum creatinine measurement (mass/volume)Ordered By: Matheus Fabian on 10-07-2024 Creatinine [Mass/Vol] 1.46 mg/dL High 0.70-1.20 [facility] Serum glucose measurement (m ass/volume)Ordered By: Matheus Fabian on 10-07-2024 Glucose [Mass/Vol] 140 mg/dL High 70-99 [facility] Serum or plasma calcium walker urement (mass/volume)Ordered By: Matheus Fabian on 10-07-2024 Calcium [Mass/Vol] 8.6 mg/dL 7.6-11.0 [facility] Serum or plasma urea nitroge n measurement (mass/volume)Ordered By: Matheus Fabian on 10-07-2024 Urea nitrogen [Mass/Vol] 36 mg/dL High 4-19 [facility] Sodium levelOrdered By: Chapincito Fabian on 10-07-2024 Sodium [Moles/Vol] 134 mmol/L 133-145 [facility] Stool Occult Blood iFOBon STOB Positive Normal [facility] Comment on above: Performed By: #### M 100.7900 ####[facility] [address] [place], [place], [id number] Stool gastrointestinal hemog lobin detection by immunologic methodOrdered By: Matheus Fabian on 10-07-2024 Lower GI hemoglobin IA Ql (Stl) Positive Abnormal [facility] Troponin T.cardiac [Mass/vol ume] in Serum or Plasma by High sensitivity methodOrdered By: Matheus Fabian on 10-07-2024 Troponin T.cardiac High sensitivity method [Mass/Vol] 46 ng/L High <14 [facility] Type AND Screenon 10-07-2024 ABO and Rh group Nom (Bld) Blood group A Rh(D) positive Normal [facility] Comment on above: Order Comment: CMV N EG? NNumber of units to transfuse: 2Is the EBL >/= 1000ml in adults or >/= 12ml/kg in children?YReason for Ordering Blood: AcuteAre the blood/blood products to be transfused? YIs the patient having/had surgery? NHas pt arrived? Korey Wolf Performed By: #### B RC, BTS ####[facility] [address] [place], [place], [address] White blood cell (WBC) count Ordered By: Matheus Fabian on 10-07-2024 WBC (Bld) [#/Vol] 7.4 10*3/uL 4.4-11.0 [facility] Venous Duplex US - Kwadwo Extre mon 10-02-2024 Venous Duplex US - Kwadwo Extrem Normal [facility] CTA Head AND Neck W/ Contras ton 10-01-2024 CTA Head AND Neck W/ Contrast Normal [facility] Creatinine measurement at be dsideOrdered By: Laura Crowell on 10-01-2024 Creatinine [Mass/Vol] 1.2 mg/dL High 0.55-1.02 [facility] Comment on above: Performed By: #### L 9100.0200 ####[facility] [address] [place], [place], [id number] EGFROrdered By: Laura Crowell on 10-01-2024 GFR/1.73 sq M.predicted among non-blacks MDRD (S/P/Bld) [Vol rate/Area] 44.0000 mL/min/{1.73_m2} Low >60 [facility] Comment on above: Performed By: #### L 9100.0200 ####[facility] [address] [place], [place], [address] Anion gap in Serum or Plasma Ordered By: Dominick Harrell on 08-28-2024 Anion gap [Moles/Vol] 14 mmol/L 5-15 [facility] Ankle Brachial Indexon 08-28 Ankle Brachial Index Normal [facility] BUN/creatinine ratioOrdered By: Dominick Harrell on 08-28-2024 Urea nitrogen/Creatinine [Mass ratio] 22.4 mg/mg High 10-20 [facility] Basic Metabolic Profile (BMP )on 08-28-2024 BUN/CRE 22.4 RATIO High - [facility] Comment on above: Performed By: #### L 500.2500 ####[facility] [address] [place], [address] Calcium [Mass/Vol] 9.8 mg/dL Normal 7.6-11.0 [facility] Comment on above: Performed By: #### L 500.2500 ####[facility] [address] [place], [address] Chloride [Moles/Vol] 102 mmol/L Normal 98-108 [facility] Comment on above: Performed By: #### L 500.2500 ####[facility] [address] [place], [address] CO2 [Moles/Vol] 21.9 mmol/L Normal 21.0-32.0 [facility] Comment on above: Performed By: #### L 500.2500 ####[facility] [address] [place], [address] Creatinine [Mass/Vol] 1.17 mg/dL Normal 0.70-1.20 [facility] Comment on above: Performed By: #### L 500.2500 ####[facility] [address] [place], [address] GAP 14 Normal 5-15 [facility] Comment on above: Performed By: #### L 500.2500 ####[facility] [address] [place], [address] GFR/1.73 sq M.predicted among non-blacks MDRD (S/P/Bld) [Vol rate/Area] 46 mL/min/{1.73_m2} Low >60 [facility] Comment on above: Result Comment: mL/m in/1.73m2 CKD-EPI Creatinine Equation (2020) Performed By: #### L 500.2500 ####[facility] [address] [place], [address] Glucose [Mass/Vol] 140 mg/dL High 70-99 [facility] Comment on above: Performed By: #### L 500.2500 ####[facility] [address] [place], [address] Potassium [Moles/Vol] 3.9 mmol/L Normal 3.3-5.1 [facility] Comment on above: Performed By: #### L 500.2500 ####[facility] [address] [place], [address] Sodium [Moles/Vol] 137 mmol/L Normal 133-145 [facility] Comment on above: Performed By: #### L 500.2500 ####[facility] [address] [place], [address] Urea nitrogen [Mass/Vol] 26 mg/dL High 4-19 [facility] Comment on above: Performed By: #### L 500.2500 ####[facility] [address] [place], [address] Carbon dioxide, total [Moles /volume] in Central venous bloodOrdered By: Dominick Harrell on 08-28-2024 CO2 [Moles/Vol] 21.9 mmol/L 21.0-32.0 [facility] Chloride assayOrdered By: Cary Harrell on 08-28-2024 Chloride [Moles/Vol] 102 mmol/L 98-108 [facility] Glomerular filtration rate ( GFR) estimation/1.73 sq m using serum, plasma, or whole bOrdered By: Dominick Harrell on 08-28-2024 GFR/1.73 sq M.predicted among non-blacks MDRD (S/P/Bld) [Vol rate/Area] 46 mL/min/{1.73_m2} Low >60 [facility] Comment on above: mL/min/1.73m2 CKD-EP I Creatinine Equation (2020) Potassium measurement (mass/ volume)Ordered By: Dominick Harrell on 08-28-2024 Potassium (Unsp spec) [Mass/Vol] 3.9 mmol/L 3.3-5.1 [facility] Serum creatinine measurement (mass/volume)Ordered By: Dominick Harrell on 08-28-2024 Creatinine [Mass/Vol] 1.17 mg/dL 0.70-1.20 [facility] Serum glucose measurement (m ass/volume)Ordered By: Dominick Harrell on 08-28-2024 Glucose [Mass/Vol] 140 mg/dL High 70-99 [facility] Serum or plasma calcium walker urement (mass/volume)Ordered By: Dominick Harrell on 08-28-2024 Calcium [Mass/Vol] 9.8 mg/dL 7.6-11.0 [facility] Serum or plasma urea nitroge n measurement (mass/volume)Ordered By: Dominick Harrell on 08-28-2024 Urea nitrogen [Mass/Vol] 26 mg/dL High 4-19 [facility] Sodium levelOrdered By: Dominick Harrell on 08-28-2024 Sodium [Moles/Vol] 137 mmol/L 133-145 [facility] US Art Duplex Unilat Lower E xton 08-28-2024 US Art Duplex Unilat Lower Ext Normal [facility] EGD Reporton 08-22-2024 EGD Report Normal [facility] International normalized rat io (INR) calculationOrdered By: Robb Giron on 08-22-2024 INR Coag (Bld) [Relative time] 1.2 {INR} [facility] MR/POSTOP.ANEon 08-22-2024 MR/POSTOP.ANE Normal [facility] MR/[id number] 08-22-2024 MR/POSTOPAN2 Normal [facility] Prothrombin Time w/INRon INR Coag (PPP) [Relative time] 1.2 {INR} Normal [facility] Comment on above: Performed By: #### L 300.3900 ####[facility] [address] [place], [place], [id number] PT Coag (PPP) [Time] 15.5 s High 11.7-14.9 [facility] Comment on above: Performed By: #### L 300.3900 ####[facility] [address] [place], [place], [phone] Prothrombin timeOrdered By: Robb Giron on 08-22-2024 PT Coag (PPP) [Time] 15.5 s High 11.7-14.9 [facility] Protime w/INR Fingerstickon 08-22-2024 INR Coag (PPP) [Relative time] 1.4 {INR} Normal [facility] Comment on above: Result Comment: Crit ical Value > 4.0 Performed By: #### L 9200.0000 ####[facility] [address] [place], [place], [address] Protime Coagsen 16.1 SEC High 11.7-14.9 [facility] Comment on above: Performed By: #### L 9200.0000 ####[facility] [address] [place], [place], [id number] Surgery Specimen Level Aj 08-22-2024 Surgery Specimen Level IV Normal [facility] Comment on above: Performed By: #### P SUIV ####[facility] [address] [place], [place], [address] Whole blood prothrombin time Ordered By: Robb Giron on 08-22-2024 PT Coag (Bld) [Time] 16.1 s High 11.7-14.9 [facility] MR/PAT.ANEon 08-17-2024 MR/PAT.ANE Normal [facility] Anion gap in Serum or Plasma Ordered By: Dominick Harrell on 08-15-2024 Anion gap [Moles/Vol] 13 mmol/L - [facility] BUN/creatinine ratioOrdered By: Dominick Harrell on 08-15-2024 Urea nitrogen/Creatinine [Mass ratio] 29.1 mg/mg High 02-18 [facility] Basic Metabolic Profile (BMP )on 08-15-2024 BUN/CRE 29.1 RATIO High 02-18 [facility] Comment on above: Performed By: #### L 500.2500 ####[facility] [address] [place], [place], [phone] Calcium [Mass/Vol] 9.9 mg/dL Normal 7.6-11.0 [facility] Comment on above: Performed By: #### L 500.2500 ####[facility] [address] [place], [address] Chloride [Moles/Vol] 99 mmol/L Normal 98-108 [facility] Comment on above: Performed By: #### L 500.2500 ####[facility] [address] [place], [address] CO2 [Moles/Vol] 25.0 mmol/L Normal 21.0-32.0 [facility] Comment on above: Performed By: #### L 500.2500 ####[facility] [address] [place], [address] Creatinine [Mass/Vol] 1.16 mg/dL Normal 0.70-1.20 [facility] Comment on above: Performed By: #### L 500.2500 ####[facility] [address] [place], [address] GAP 13 Normal 5-15 [facility] Comment on above: Performed By: #### L 500.2500 ####[facility] [address] [place], [address] GFR/1.73 sq M.predicted among non-blacks MDRD (S/P/Bld) [Vol rate/Area] 46 mL/min/{1.73_m2} Low >60 [facility] Comment on above: Result Comment: mL/m in/1.73m2 CKD-EPI Creatinine Equation (2020) Performed By: #### L 500.2500 ####[facility] [address] [place], [address] Glucose [Mass/Vol] 148 mg/dL High 70-99 [facility] Comment on above: Performed By: #### L 500.2500 ####[facility] [address] [place], [address] Potassium [Moles/Vol] 3.4 mmol/L Normal 3.3-5.1 [facility] Comment on above: Result Comment: Hemo lysis present, Results??could be affected.?? Performed By: #### L 500.2500 ####[facility] [address] [place], [place], [phone] Sodium [Moles/Vol] 137 mmol/L Normal 133-145 [facility] Comment on above: Performed By: #### L 500.2500 ####[facility] [address] [place], [address] Urea nitrogen [Mass/Vol] 34 mg/dL High 4-19 [facility] Comment on above: Performed By: #### L 500.2500 ####[facility] [address] [place], [place], [phone] Carbon dioxide, total [Moles /volume] in Central venous bloodOrdered By: Dominick Harrell on 08-15-2024 CO2 [Moles/Vol] 25.0 mmol/L 21.0-32.0 [facility] Chloride assayOrdered By: Cary Harrell on 08-15-2024 Chloride [Moles/Vol] 99 mmol/L 98-108 [facility] GFR/1.73 sq M.predicted rylie g non-blacks MDRD (S/P/Bld) [Vol rate/Area]Ordered By: Dominick Harrell on 08-15-2024 Estimated GFR (MDRD) Non-Af Amer 46 Low >60 [facility] Comment on above: mL/min/1.73m2 CKD-EP I Creatinine Equation (2020) Glomerular filtration rate ( GFR) estimation/1.73 sq m using serum, plasma, or whole bOrdered By: Dominick Harrell on 08-15-2024 GFR/1.73 sq M.predicted among non-blacks MDRD (S/P/Bld) [Vol rate/Area] 46 mL/min/{1.73_m2} Low >60 [facility] Comment on above: mL/min/1.73m2 CKD-EP I Creatinine Equation (2020) Potassium (Unsp spec) [Mass/ Vol]Ordered By: Dominick Harrell on 08-15-2024 Potassium [Moles/Vol] 3.4 mmol/L 3.3-5.1 [facility] Comment on above: Hemolysis present, R esults could be affected. Potassium measurement (mass/ volume)Ordered By: Dominick Harrell on 08-15-2024 Potassium (Unsp spec) [Mass/Vol] 3.4 mmol/L 3.3-5.1 [facility] Comment on above: Hemolysis present, R esults could be affected. Serum creatinine measurement (mass/volume)Ordered By: Dominick Harrell on 08-15-2024 Creatinine [Mass/Vol] 1.16 mg/dL 0.70-1.20 [facility] Serum glucose measurement (m ass/volume)Ordered By: Dominick Harrell on 08-15-2024 Glucose [Mass/Vol] 148 mg/dL High 70-99 [facility] Serum or plasma calcium walker urement (mass/volume)Ordered By: Dominick Harrell on 08-15-2024 Calcium [Mass/Vol] 9.9 mg/dL 7.6-11.0 [facility] Serum or plasma urea nitroge n measurement (mass/volume)Ordered By: Dominick Harrell on 08-15-2024 Urea nitrogen [Mass/Vol] 34 mg/dL High 4-19 [facility] Sodium levelOrdered By: Dominick Harrell on 08-15-2024 Sodium [Moles/Vol] 137 mmol/L 133-145 [facility] CNPNon 07-31-2024 CNPN Normal [facility] Anion gap in Serum or Plasma Ordered By: Dominick Harrell on 07-25-2024 Anion gap [Moles/Vol] 12 mmol/L 5-15 [facility] BUN/creatinine ratioOrdered By: Dominick Harrell on 07-25-2024 Urea nitrogen/Creatinine [Mass ratio] 23.1 mg/mg High 02-18 [facility] Basic Metabolic Profile (BMP )on 07-25-2024 BUN/CRE 23.1 RATIO High 02-18 [facility] Comment on above: Performed By: #### L 500.2500 ####[facility] [address] [place], [place], [phone] Calcium [Mass/Vol] 9.7 mg/dL Normal 7.6-11.0 [facility] Comment on above: Performed By: #### L 500.2500 ####[facility] [address] [place], [address] Chloride [Moles/Vol] 102 mmol/L Normal 98-108 [facility] Comment on above: Performed By: #### L 500.2500 ####[facility] [address] [place], [address] CO2 [Moles/Vol] 23.3 mmol/L Normal 21.0-32.0 [facility] Comment on above: Performed By: #### L 500.2500 ####[facility] [address] [place], [address] Creatinine [Mass/Vol] 1.05 mg/dL Normal 0.70-1.20 [facility] Comment on above: Performed By: #### L 500.2500 ####[facility] [address] [place], [address] GAP 12 Normal 5-15 [facility] Comment on above: Performed By: #### L 500.2500 ####[facility] [address] [place], [address] GFR/1.73 sq M.predicted among non-blacks MDRD (S/P/Bld) [Vol rate/Area] 52 mL/min/{1.73_m2} Low >60 [facility] Comment on above: Result Comment: mL/m in/1.73m2 CKD-EPI Creatinine Equation (2020) Performed By: #### L 500.2500 ####[facility] [address] [place], [address] Glucose [Mass/Vol] 138 mg/dL High 70-99 [facility] Comment on above: Performed By: #### L 500.2500 ####[facility] [address] [place], [address] Potassium [Moles/Vol] 4.1 mmol/L Normal 3.3-5.1 [facility] Comment on above: Performed By: #### L 500.2500 ####[facility] [address] [place], [address] Sodium [Moles/Vol] 138 mmol/L Normal 133-145 [facility] Comment on above: Performed By: #### L 500.2500 ####[facility] [address], [address] Urea nitrogen [Mass/Vol] 24 mg/dL High 4-19 [facility] Comment on above: Performed By: #### L 500.2500 ####[facility] [address] [place], [address] Carbon dioxide, total [Moles /volume] in Central venous bloodOrdered By: Dominick Harrell on 07-25-2024 CO2 [Moles/Vol] 23.3 mmol/L 21.0-32.0 [facility] Chloride assayOrdered By: Cary Harrell on 07-25-2024 Chloride [Moles/Vol] 102 mmol/L 98-108 [facility] GFR/1.73 sq M.predicted rylie g non-blacks MDRD (S/P/Bld) [Vol rate/Area]Ordered By: Dominick Harrell on 07-25-2024 Estimated GFR (MDRD) Non-Af Amer 52 Low >60 [facility] Comment on above: mL/min/1.73m2 CKD-EP I Creatinine Equation (2020) Glomerular filtration rate ( GFR) estimation/1.73 sq m using serum, plasma, or whole bOrdered By: Dominick Harrell on 07-25-2024 GFR/1.73 sq M.predicted among non-blacks MDRD (S/P/Bld) [Vol rate/Area] 52 mL/min/{1.73_m2} Low >60 [facility] Comment on above: mL/min/1.73m2 CKD-EP I Creatinine Equation (2020) Potassium (Unsp spec) [Mass/ Vol]Ordered By: Dominick Harrell on 07-25-2024 Potassium [Moles/Vol] 4.1 mmol/L 3.3-5.1 [facility] Potassium measurement (mass/ volume)Ordered By: Dominick Harrell on 07-25-2024 Potassium (Unsp spec) [Mass/Vol] 4.1 mmol/L 3.3-5.1 [facility] Serum creatinine measurement (mass/volume)Ordered By: Dominick Harrell on 07-25-2024 Creatinine [Mass/Vol] 1.05 mg/dL 0.70-1.20 [facility] Serum glucose measurement (m ass/volume)Ordered By: Dominick Harrell on 07-25-2024 Glucose [Mass/Vol] 138 mg/dL High 70-99 [facility] Serum or plasma calcium walker urement (mass/volume)Ordered By: Dominick Harrell on 07-25-2024 Calcium [Mass/Vol] 9.7 mg/dL 7.6-11.0 [facility] Serum or plasma urea nitroge n measurement (mass/volume)Ordered By: Dominick Harrell on 07-25-2024 Urea nitrogen [Mass/Vol] 24 mg/dL High 4-19 [facility] Sodium levelOrdered By: Dominick Harrell on 07-25-2024 Sodium [Moles/Vol] 138 mmol/L 133-145 [facility] Basic metabolic 2000 panelon 07-17-2024 Anion gap [Moles/Vol] 12 mmol/L Normal 8-15 [facility] Comment on above: Order Comment: Speci men Type: BLOOD SPECIMENOrdering Facility: [facility] Address: [address] [place] [address] Performed By: #### 2 4321-2, TSHRF ####[facility] LABCLIA [id number] [place] [address] [place] Calcium [Mass/Vol] 9.9 mg/dL Normal 8.5-10.2 [facility] Comment on above: Order Comment: Speci men Type: BLOOD SPECIMENOrdering Facility: [facility] Address: [address] [place] [address] Performed By: #### 2 4321-2, TSHRF ####[facility] LABCLIA [id number] [place] [id number] [place] Chloride [Moles/Vol] 102 mmol/L Normal 98-107 [facility] Comment on above: Order Comment: Speci men Type: BLOOD SPECIMENOrdering Facility: [facility] Address: [address] [place] [address] Performed By: #### 2 4321-2, TSHRF ####[facility] LABCLIA [id number] [place] [address] [place] CO2 [Moles/Vol] 24 mmol/L Normal 22-30 [facility] Comment on above: Order Comment: Speci men Type: BLOOD SPECIMENOrdering Facility: [facility] Address: [address] [place] [address] Performed By: #### 2 4321-2, TSHRF ####[facility] LABCLIA [id number] [place] [address] [place] Creatinine [Mass/Vol] 1.01 mg/dL High 0.58-0.96 [facility] Comment on above: Order Comment: Speci men Type: BLOOD SPECIMENOrdering Facility: [facility] Address: [address] [place] [address] Performed By: #### 2 4321-2, TSHRF ####[facility] LABCLIA [id number] [address] [facility] Creatinine and Glomerular filtration rate.predicted panel (S/P/Bld) 55 mL/min/1.73m??? Low >=60 [facility] Comment on above: Order Comment: Speci men Type: BLOOD SPECIMENOrdering Facility: [facility] Address: [address] [place] [address] Result Comment: Kimberley mated Glomerular Filtration Rate [...] 2 4321-2, TSHRF ####[facility] LABCLIA [id number] [place] [address] [place] Glucose [Mass/Vol] 149 mg/dL High 74-99 [facility] Comment on above: Order Comment: Miguel men Type: BLOOD SPECIMENOrdering Facility: [facility] Address: [address] [place] [address] Result Comment: The [place] [employer] (ADA) provides guidance for cutoff [...] Standards of Medical Care in Diabetes 2016, [place] [employer]. Diabetes Care. 2016.39(Suppl 1). Performed By: #### 2 4321-2, TSHRF ####[facility] LABCLIA [id number] [place] [id number] [place] Potassium [Moles/Vol] 3.8 mmol/L Normal 3.7-5.1 [facility] Comment on above: Order Comment: Miguel men Type: BLOOD SPECIMENOrdering Facility: [facility] Address: [address] [place] [id number] Performed By: #### 2 4321-2, TSHRF ####[facility] LABIA [id number] [place] [id number] [place] Sodium [Moles/Vol] 138 mmol/L Normal 136-144 [facility] Comment on above: Order Comment: Miguel men Type: BLOOD SPECIMENOrdering Facility: [facility] Address: [address] [place] [address] Performed By: #### 2 4321-2, TSHRF ####[facility] LABCLIA [id number] [place] [address] [place] Urea nitrogen [Mass/Vol] 23 mg/dL High 7-21 [facility] Comment on above: Order Comment: Speci men Type: BLOOD SPECIMENOrdering Facility: [facility] Address: [address] [place] [address] Performed By: #### 2 4321-2, TSHRF ####[facility] LABCLIA [id number] [place] [address] [place] CBC W Auto Differential pane l (Bld)on 07-17-2024 Basophils (Bld) [#/Vol] 0.04 10*3/uL [facility] Basophils/100 WBC (Bld) 0.5 % [facility] Differential cell count method Nom (Bld) Auto [facility] Eosinophils (Bld) [#/Vol] 0.19 10*3/uL [facility] Eosinophils/100 WBC (Bld) 2.6 % [facility] Erythrocyte distribution width (RBC) [Ratio] 15.1 % High 11.5 - 15.0 % [facility] Hematocrit (Bld) [Volume fraction] 36.7 % 36.0 - 46.0 % [facility] Hemoglobin (Bld) [Mass/Vol] 11.8 g/dL 11.5 - 15.5 g/dL [facility] Immature granulocytes (Bld) [#/Vol] 0.05 10*3/uL [facility] Immature granulocytes/100 WBC (Bld) 0.7 % [facility] Interpretation and review of laboratory results Abnormal [facility] Lymphocytes (Bld) [#/Vol] 1.94 10*3/uL [facility] Lymphocytes/100 WBC (Bld) 26.6 % [facility] MCH (RBC) [Entitic mass] 31.6 pg 26.0 - 34.0 pg [facility] MCHC (RBC) [Mass/Vol] 32.2 g/dL 30.5 - 36.0 g/dL [facility] MCV (RBC) [Entitic vol] 98.1 fL 80.0 - 100.0 fL [facility] Monocytes (Bld) [#/Vol] 0.7 10*3/uL [facility] Monocytes/100 WBC (Bld) 9.6 % [facility] Neutrophils (Bld) [#/Vol] 4.36 10*3/uL [facility] Neutrophils/100 WBC (Bld) 60 % [facility] Nucleated RBC (Bld) [#/Vol] NINF [facility] Nucleated RBC/100 WBC (Bld) [Ratio] 0 % /100 WBC [facility] Platelet mean volume (Bld) [Entitic vol] 11.8 fL 9.0 - 12.7 fL [facility] Platelets (Bld) [#/Vol] 239 10*3/uL [facility] RBC (Bld) [#/Vol] 3.74 10*6/uL Low 3.90 - 5.2 0 m/uL [facility] WBC (Bld) [#/Vol] 7.28 10*3/uL [facility] Basophils (Bld) [#/Vol] 0.04 10*3/uL Normal <0.11 [facility] Comment on above: Order Comment: Speci men Type: BLOOD SPECIMENOrdering Facility: [facility] Address: [address] [place] [address] Performed By: #### 5 7021-8 ####[facility] LABIA [id number] [place] [address] [place] Basophils/100 WBC (Bld) 0.5 % Normal [facility] Comment on above: Order Comment: Speci men Type: BLOOD SPECIMENOrdering Facility: [facility] Address: [address] [place] [address] Performed By: #### 5 7021-8 ####[facility] LABIA [id number] [place] [address] [place] Differential cell count method Nom (Bld) Auto Normal [facility] Comment on above: Order Comment: Speci men Type: BLOOD SPECIMENOrdering Facility: [facility] Address: [address] [place] [address] Performed By: #### 5 7021-8 ####[facility] LABCLIA [id number] [address], [place] [address] [place] Eosinophils (Bld) [#/Vol] 0.19 10*3/uL Normal <0.46 [facility] Comment on above: Order Comment: Speci men Type: BLOOD SPECIMENOrdering Facility: [facility] Address: [address] [place] [address] Performed By: #### 5 7021-8 ####[facility] LABCLIA [id number] [address], [place] [address] [place] Eosinophils/100 WBC (Bld) 2.6 % Normal [facility] Comment on above: Order Comment: Speci men Type: BLOOD SPECIMENOrdering Facility: [facility] Address: [address] [place] [address] Performed By: #### 5 7021-8 ####[facility] LABCLIA [id number] [address], [place] [address] [place] Erythrocyte distribution width (RBC) [Ratio] 15.1 % High 11.5-15.0 [facility] Comment on above: Order Comment: Speci men Type: BLOOD SPECIMENOrdering Facility: [facility] Address: [address] [place] [address] Performed By: #### 5 7021-8 ####[facility] LABCLIA [id number] [address], [place] [address] [place] Hematocrit (Bld) [Volume fraction] 36.7 % Normal 36.0-46.0 [facility] Comment on above: Order Comment: Speci men Type: BLOOD SPECIMENOrdering Facility: [facility] Address: [address] [place] [address] Performed By: #### 5 7021-8 ####[facility] LABCLIA [id number] [address], [facility] [place] Hemoglobin (Bld) [Mass/Vol] 11.8 g/dL Normal 11.5-15.5 [facility] Comment on above: Order Comment: Speci men Type: BLOOD SPECIMENOrdering Facility: [facility] Address: [address] [place] [address] Performed By: #### 5 7021-8 ####[facility] LABCLIA [id number] [place] [address] [place] Immature granulocytes (Bld) [#/Vol] 0.05 10*3/uL Normal <0.10 [facility] Comment on above: Order Comment: Speci men Type: BLOOD SPECIMENOrdering Facility: [facility] Address: [address] [place] [address] Performed By: #### 5 7021-8 ####[facility] LABCLIA [id number] [place] [address] [place] Immature granulocytes/100 WBC (Bld) 0.7 % Normal [facility] Comment on above: Order Comment: Speci men Type: BLOOD SPECIMENOrdering Facility: [facility] Address: [address] [place] [address] Performed By: #### 5 7021-8 ####[facility] LABCLIA [id number] [place] [address] [place] Lymphocytes (Bld) [#/Vol] 1.94 10*3/uL Normal 1.00-4.00 [facility] Comment on above: Order Comment: Speci men Type: BLOOD SPECIMENOrdering Facility: [facility] Address: [address] [place] [address] Performed By: #### 5 7021-8 ####[facility] LABCLIA [id number] [place] [address] [place] Lymphocytes/100 WBC (Bld) 26.6 % Normal [facility] Comment on above: Order Comment: Speci men Type: BLOOD SPECIMENOrdering Facility: [facility] Address: [address] [place] [address] Performed By: #### 5 7021-8 ####[facility] LABIA [id number] [place] [address] [place] [facility] MCH (RBC) [Entitic mass] 31.6 pg Normal 26.0-34.0 [facility] Comment on above: Order Comment: Speci men Type: BLOOD SPECIMENOrdering Facility: [facility] Address: [address] [place] [address] Performed By: #### 5 7021-8 ####[facility] LABIA [id number] [place] [address] [place] MCHC (RBC) [Mass/Vol] 32.2 g/dL Normal 30.5-36.0 [facility] Comment on above: Order Comment: Speci men Type: BLOOD SPECIMENOrdering Facility: [facility] Address: [address] [place] [address] Performed By: #### 5 7021-8 ####[facility] LABIA [id number] [place] [address] [place] MCV (RBC) [Entitic vol] 98.1 fL Normal 80.0-100.0 [facility] Comment on above: Order Comment: Speci men Type: BLOOD SPECIMENOrdering Facility: [facility] Address: [address] [place] [address] Performed By: #### 5 7021-8 ####[facility] LABIA [id number] [place] [address] [place] Monocytes (Bld) [#/Vol] 0.70 10*3/uL Normal <0.87 [facility] Comment on above: Order Comment: Speci men Type: BLOOD SPECIMENOrdering Facility: [facility] Address: [address] [place] [address] Performed By: #### 5 7021-8 ####[facility] LABCLIA [id number] [place] [id number] [place] Monocytes/100 WBC (Bld) 9.6 % Normal [facility] Comment on above: Order Comment: Speci men Type: BLOOD SPECIMENOrdering Facility: [facility] Address: [address] [place] [address] Performed By: #### 5 7021-8 ####[facility] LABCLIA [id number] [place] [address] [place] Neutrophils (Bld) [#/Vol] 4.36 10*3/uL Normal 1.45-7.50 [facility] Comment on above: Order Comment: Speci men Type: BLOOD SPECIMENOrdering Facility: [facility] Address: [address] [place] [address] Performed By: #### 5 7021-8 ####[facility] LABIA [id number] [place] [address] [place] Neutrophils/100 WBC (Bld) 60.0 % Normal [facility] Comment on above: Order Comment: Speci men Type: BLOOD SPECIMENOrdering Facility: [facility] Address: [address] [place] [address] Performed By: #### 5 7021-8 ####[facility] LABIA [id number] [place] [address] [place] Nucleated RBC (Bld) [#/Vol] 10*3/uL Normal <0.01 [facility] Comment on above: Order Comment: Speci men Type: BLOOD SPECIMENOrdering Facility: [facility] Address: [address] [place] [address] Performed By: #### 5 7021-8 ####[facility] LABCLIA [id number] [place] [address] [place] Nucleated RBC/100 WBC (Bld) [Ratio] 0.0 /100 WBC Normal [facility] Comment on above: Order Comment: Speci men Type: BLOOD SPECIMENOrdering Facility: [facility] Address: [address] [place] [address] Performed By: #### 5 7021-8 ####[facility] LABIA [id number] [place] [address] [place] Platelet mean volume (Bld) [Entitic vol] 11.8 fL Normal 9.0-12.7 [facility] Comment on above: Order Comment: Speci men Type: BLOOD SPECIMENOrdering Facility: [facility] Address: [address] [place] [address] Performed By: #### 5 7021-8 ####[facility] LABIA [id number] [place] [address] [place] Platelets (Bld) [#/Vol] 239 10*3/uL Normal 150-400 [facility] Comment on above: Order Comment: Speci men Type: BLOOD SPECIMENOrdering Facility: [facility] Address: [address] [place] [address] Performed By: #### 5 7021-8 ####[facility] LABIA [id number] [place] [address] [place] RBC (Bld) [#/Vol] 3.74 10*6/uL Low 3.90-5.20 [facility] Comment on above: Order Comment: Speci men Type: BLOOD SPECIMENOrdering Facility: [facility] Address: [address] [place] [address] Performed By: #### 5 7021-8 ####[facility] LABIA [id number] [place] [address] [place] WBC (Bld) [#/Vol] 7.28 10*3/uL Normal 3.70-11.00 [facility] Comment on above: Order Comment: Speci men Type: BLOOD SPECIMENOrdering Facility: [facility] Address: [address] [place] [address] Performed By: #### 5 7021-8 ####[facility] LABCLIA [id number] [place] [address] [place] CNOVon 07-17-2024 CNOV Normal [facility] HbA1c (Bld)on 07-17-2024 Average glucose Estimated from glycated hemoglobin (Bld) [Mass/Vol] 114 mg/dL Normal [facility] Comment on above: Order Comment: Speci men Type: BLOOD SPECIMENOrdering Facility: [facility] Address: [address] [place] [address] Result Comment: eAG: (Estimated average glucose) is a calculated value from HgbA1c and is sales representative of the average blood glucose level in the last 2-3 month period. Performed By: #### 5 5454-3 ####[facility] LABIA [id number] [place] [address] [place] [facility] HbA1c (Bld) [Mass fraction] 5.6 % Normal 4.3-5.6 [facility] Comment on above: Order Comment: Speci men Type: BLOOD SPECIMENOrdering Facility: [facility] Address: [address] [place] [address] Result Comment: Amer [place] Diabetes Association guidelines indicate that patients with HgbA1c in the range 5.7-6.4% are at increased risk for development of diabetes, and intervention by lifestyle modification may be beneficial. HgbA1c greater or equal to 6.5% is considered diagnostic of diabetes. Performed By: #### 5 5454-3 ####[facility] LABIA [id number] [place] [id number] [place] TSH W/REFLEX FT4on 5 TSH Qn 2.660 m[IU]/L Normal 0.270-4.200 [facility] Comment on above: Order Comment: Speci men Type: BLOOD SPECIMENOrdering Facility: [facility] Address: [address] [place] [address] Performed By: #### 2 4321-2, TSHRF ####[facility] LABCLIA [id number] [place] [address] [place] Anion gap in Serum or Plasma Ordered By: Dominick Harrell on 07-10-2024 Anion gap [Moles/Vol] 14 mmol/L - [facility] BUN/creatinine ratioOrdered By: Dominick Harrell on 07-10-2024 Urea nitrogen/Creatinine [Mass ratio] 24.8 mg/mg High 02-18 [facility] Basic Metabolic Profile (BMP )on 07-10-2024 BUN/CRE 24.8 RATIO High 02-18 [facility] Comment on above: Performed By: #### L 500.2500 ####[facility] [address] [place], [address] Calcium [Mass/Vol] 9.6 mg/dL Normal 7.6-11.0 [facility] Comment on above: Performed By: #### L 500.2500 ####[facility] [address] [place], [address] Chloride [Moles/Vol] 99 mmol/L Normal 98-108 [facility] Comment on above: Performed By: #### L 500.2500 ####[facility] [address] [place], [address] CO2 [Moles/Vol] 24.0 mmol/L Normal 21.0-32.0 [facility] Comment on above: Performed By: #### L 500.2500 ####[facility] [address] [place], [address] Creatinine [Mass/Vol] 1.01 mg/dL Normal 0.70-1.20 [facility] Comment on above: Performed By: #### L 500.2500 ####[facility] [address] [place], [address] GAP 14 Normal - [facility] Comment on above: Performed By: #### L 500.2500 ####[facility] [address] [place], [address] GFR/1.73 sq M.predicted among non-blacks MDRD (S/P/Bld) [Vol rate/Area] 55 mL/min/{1.73_m2} Low >60 [facility] Comment on above: Result Comment: mL/m in/1.73m2 CKD-EPI Creatinine Equation (2020) Performed By: #### L 500.2500 ####[facility] [address] [place], [address] Glucose [Mass/Vol] 181 mg/dL High 70-99 [facility] Comment on above: Performed By: #### L 500.2500 ####[facility] [address] [place], [address] Potassium [Moles/Vol] 2.9 mmol/L Low 3.3-5.1 [facility] Comment on above: Performed By: #### L 500.2500 ####[facility] [address] [place], [address] Sodium [Moles/Vol] 136 mmol/L Normal 133-145 [facility] Comment on above: Performed By: #### L 500.2500 ####[facility] [address] [place], [address] Urea nitrogen [Mass/Vol] 25 mg/dL High 4-19 [facility] Comment on above: Performed By: #### L 500.2500 ####[facility] [address] [place], [address] Carbon dioxide, total [Moles /volume] in Central venous bloodOrdered By: Dominick Harrell on 07-10-2024 CO2 [Moles/Vol] 24.0 mmol/L 21.0-32.0 [facility] Chloride assayOrdered By: Cary Harrell on 07-10-2024 Chloride [Moles/Vol] 99 mmol/L 98-108 [facility] GFR/1.73 sq M.predicted rylie g non-blacks MDRD (S/P/Bld) [Vol rate/Area]Ordered By: Dominick Harrell on 07-10-2024 Estimated GFR (MDRD) Non-Af Amer 55 Low >60 [facility] Comment on above: mL/min/1.73m2 CKD-EP I Creatinine Equation (2020) Glomerular filtration rate ( GFR) estimation/1.73 sq m using serum, plasma, or whole bOrdered By: Dominick Harrell on 07-10-2024 GFR/1.73 sq M.predicted among non-blacks MDRD (S/P/Bld) [Vol rate/Area] 55 mL/min/{1.73_m2} Low >60 [facility] Comment on above: mL/min/1.73m2 CKD-EP I Creatinine Equation (2020) Potassium (Unsp spec) [Mass/ Vol]Ordered By: Dominick Harrell on 07-10-2024 Potassium [Moles/Vol] 2.9 mmol/L Low 3.3-5.1 [facility] Potassium measurement (mass/ volume)Ordered By: Dominick Harrell on 07-10-2024 Potassium (Unsp spec) [Mass/Vol] 2.9 mmol/L Low 3.3-5.1 [facility] Serum creatinine measurement (mass/volume)Ordered By: Dominick Harrell on 07-10-2024 Creatinine [Mass/Vol] 1.01 mg/dL 0.70-1.20 [facility] Serum glucose measurement (m ass/volume)Ordered By: Dominick Harrell on 07-10-2024 Glucose [Mass/Vol] 181 mg/dL High 70-99 [facility] Serum or plasma calcium walker urement (mass/volume)Ordered By: Dominick Harrell on 07-10-2024 Calcium [Mass/Vol] 9.6 mg/dL 7.6-11.0 [facility] Serum or plasma urea nitroge n measurement (mass/volume)Ordered By: Dominick Harrell on 07-10-2024 Urea nitrogen [Mass/Vol] 25 mg/dL High 4-19 [facility] Sodium levelOrdered By: Dominick Harrell on 07-10-2024 Sodium [Moles/Vol] 136 mmol/L 133-145 [facility] M7400.3302on 06-25-2024 M7400.3302 Normal [facility] Comment on above: Performed By: #### M 100.6795, M100.637, M600.5000, M7400.3302, M100.6796, L7000.0700 ####[facility] [address] [place], [address] Ova and Parasites 8623on OP Normal [facility] Comment on above: Performed By: #### M 100.6795, M100.637, M600.5000, M7400.3302, M100.6796, L7000.0700 ####[facility] [address] [place], [place], [address] Calprotectin, Stoolon [address] 412 ug/g Abnormal 0-120 [facility] Comment on above: Result Comment: Conc entration Interpretation Follow-Up< 5 - 50 ug/g Normal None>50 -120 ug/g Borderline Re-evaluate in 4-6 weeks >120 ug/g Abnormal Repeat as clinically indicatedPerformed at: [facility] [address] [id number] Director: Tom Colon MD, Phone: [phone] Performed By: #### M 100.6795, M100.637, M600.5000, M7400.3302, M100.6796, L7000.0700 ####[facility] [address] [place], [place], [address] C. difficile DNA MARCOS+probe Q l (Unsp spec)Ordered By: Ese Hillman on 06-20-2024 Clostridioides difficile (PCR) [facility] C. difficile Ql (Stl)Ordered By: Ese Hillman on 06-20-2024 C. difficile GDH Antigen & Toxins [facility] CDIFF (PCR)on 06-20-2024 CDIFF NA 027 NEGATIVE C. Diff PCR A Positive-Toxigenic C. Difficile Detected A Normal [facility] Comment on above: Performed By: #### M 100.6795, M100.637, M600.5000, M7400.3302, M100.6796, L7000.0700 ####[facility] [address] [place], [place], [id number] Calprotectin stoolOrdered By : Ese Hillman on 06-20-2024 Calprotectin stool 412 ug/g High 0-120 [facility] Comment on above: Concentration Interp retation Follow-Up< 5 - 50 ug/g Normal None>50 -120 ug/g Borderline Re-evaluate in 4-6 weeks >120 ug/g Abnormal Repeat as clinically indicatedPerformed at: [facility] [id number] Director: Tom Colon MD, Phone: [phone] Stool Calprotectin 412 ug/g High 0-120 [facility] Comment on above: Concentration Interp retation Follow-Up< 5 - 50 ug/g Normal None>50 -120 ug/g Borderline Re-evaluate in 4-6 weeks >120 ug/g Abnormal Repeat as clinically indicatedPerformed at: [facility] [address] [id number] Director: Tom Colon MD, Phone: [phone] Cardiology Visit Reporton Cardiology Visit Report Normal [facility] Clostridium Diff Toxin/Agon 06-20-2024 CDIFF (EIA) Normal [facility] Comment on above: Performed By: #### M 100.6795, M100.637, M600.5000, M7400.3302, M100.6796, L7000.0700 ####[facility] [address] [place], [address] Clostridium difficile detect ion by polymerase chain reactionOrdered By: Ese Hillman on 06-20-2024 C. difficile DNA MARCOS+probe Ql (Unsp spec) [facility] ENTERIC PATHOGEN PANEL STOOL on 06-20-2024 EP PANEL Normal [facility] Comment on above: Performed By: #### M 100.6795, M100.637, M600.5000, M7400.3302, M100.6796, L7000.0700 ####[facility] [address] [place], [address] Giardia lamblia antigen assa y by enzyme immunoassayOrdered By: Ese Hillman on 06-20-2024 Giardia Antigen (LATANYA) [facility] Ova and parasitesOrdered By: Ese Hillman on 06-20-2024 Ova and Parasites [facility] Stool Clostridium difficile detectionOrdered By: Ese Hillman on 06-20-2024 C. difficile Ql (Stl) [facility] Stool enteric pathogen panel by probe and target amplification methodOrdered By: Ese Hillman on 06-20-2024 Enteric Bacteriology [facility] Gastroenterology Visit Repor ton 06-19-2024 Gastroenterology Visit Report Normal [facility] L3410.9998on 06-18-2024 [facility] Comment on above: Order Comment: [id number] 4STOOL CULTURE Result Comment: BOB Palmer CULTURESalmonella/Shigella Screen Final ReportResult 1 NO Salmonella or Shigella recovered.Campylobacter Culture Final ReportResult 1 NO Campylobacter species isolated.E. coli Shiga Toxin EIA NEGATIVE ___ TESTING PERFORMED AT [facility]. ORIGINAL REPORT ON FILE IN LAB CONTAINS ADDITIONAL TEST SITE INFORMATION. Performed By: #### L 3410.9998 ####[facility] [address] [place], [address] MR/BMS.BVSon 06-12-2024 MR/BMS.BVS [facility] CNOVon 06-04-2024 CNOV Normal [facility] CNPNon 05-29-2024 CNPN Normal [facility] Basic Metabolic Profile (BMP )on 05-28-2024 BUN/CRE 31.9 RATIO High 10-20 [facility] Comment on above: Performed By: #### L 500.2500 ####[facility] [address] [place], [address] CA,Total 9.3 mg/dL Normal 8.5-10.1 [facility] Comment on above: Performed By: #### L 500.2500 ####[facility] [address] [place], [address] Chloride [Moles/Vol] 108 mmol/L High 98-107 [facility] Comment on above: Performed By: #### L 500.2500 ####[facility] [address] [place], [address] CO2 [Moles/Vol] 22.0 mmol/L Normal 21.0-32.0 [facility] Comment on above: Performed By: #### L 500.2500 ####[facility] [address] [place], [address] Creatinine [Mass/Vol] 1.13 mg/dL High 0.55-1.02 [facility] Comment on above: Result Comment: The validity of the calculated GFR GFRAA in patients over70 years has not been determined. Clinical correlation isessential. Performed By: #### L 500.2500 ####[facility] [address] [place], [address] EST GFR - AA 59 mL/min Low >60 [facility] Comment on above: Result Comment: Afri can Sudanese GFR Calc Performed By: #### L 500.2500 ####[facility] [address] [place], [address] GAP 6 Normal 5-15 [facility] Comment on above: Performed By: #### L 500.2500 ####[facility] [address] [place], [address] GFR/1.73 sq M.predicted among non-blacks MDRD (S/P/Bld) [Vol rate/Area] 49 mL/min/{1.73_m2} Low >60 [facility] Comment on above: Result Comment: Non- GFR Calc Performed By: #### L 500.2500 ####[facility] [address] [place], [address] Glucose [Mass/Vol] 182 mg/dL High 74-106 [facility] Comment on above: Result Comment: Fast ing Glucose result greater than or equal to 126 mg/dLsuggests DIABETES MELLITUS per A.D.A. criteria. Performed By: #### L 500.2500 ####[facility] [address] [place], [address] Potassium [Moles/Vol] 4.5 mmol/L Normal 3.5-5.1 [facility] Comment on above: Performed By: #### L 500.2500 ####[facility] [address] [place], [address] Sodium [Moles/Vol] 136 mmol/L Normal 136-145 [facility] Comment on above: Performed By: #### L 500.2500 ####[facility] [address] [place], [address] Urea nitrogen [Mass/Vol] 36 mg/dL High 7-18 [facility] Comment on above: Performed By: #### L 500.2500 ####[facility] [address] [place], [address] Blood urea nitrogen (BUN)/cr eatinine ratioOrdered By: Roly Herrera on 05-28-2024 Urea nitrogen/Creatinine [Mass ratio] 31.9 mg/mg High 10-20 [facility] Carbon dioxide measurementOr dered By: Roly Herrera on 05-28-2024 CO2 [Moles/Vol] 22.0 mmol/L 21.0-32.0 [facility] Chloride measurementOrdered By: Roly Herrera on 05-28-2024 Chloride [Moles/Vol] 108 mmol/L High 98-107 [facility] Estimated glomerular filtrat ion rate (GFR) AmericanOrdered By: Roly Herrera on 05-28-2024 Estimated GFR (MDRD) Amer 59 mL/min Low >60 [facility] Comment on above: GFR Calc Glomerular filtration rate ( GFR) estimationOrdered By: Roly Herrera on 05-28-2024 Estimated GFR (MDRD) Non-Af Amer 49 mL/min Low >60 [facility] Comment on above: Non- GFR Calc Glucose measurementOrdered B y: Roly Herrera on 05-28-2024 Glucose [Mass/Vol] 182 mg/dL High 74-106 [facility] Comment on above: Fasting Glucose resu lt greater than or equal to 126 mg/dL suggests DIABETES MELLITUS per A.D.A. criteria. Potassium measurementOrdered By: Roly Herrera on 05-28-2024 Potassium [Moles/Vol] 4.5 mmol/L 3.5-5.1 [facility] Serum anion gap measurementO rdered By: Roly Herrera on 05-28-2024 Anion gap [Moles/Vol] 6 mmol/L 5-15 [facility] Serum or plasma calcium walker urement (mass/volume)Ordered By: Roly Herrera on 05-28-2024 Calcium [Mass/Vol] 9.3 mg/dL 8.5-10.1 [facility] Serum or plasma creatinine m easurement (mass/volume)Ordered By: Roly Herrera on 05-28-2024 Creatinine [Mass/Vol] 1.13 mg/dL High 0.55-1.02 [facility] Comment on above: The validity of the calculated GFR & GFRAA in patients over 70 years has not been determined. Clinical correlation is essential. Serum or plasma urea nitroge n measurement (mass/volume)Ordered By: Roly Herrera on 05-28-2024 Urea nitrogen [Mass/Vol] 36 mg/dL High 7-18 [facility] Sodium levelOrdered By: Reymundo Herrera on 05-28-2024 Sodium [Moles/Vol] 136 mmol/L 136-145 [facility] US Art Duplex Unilat Lower E xton 05-28-2024 US Art Duplex Unilat Lower Ext Normal [facility] CNPNon 05-23-2024 CNPN Normal [facility] PT panel Coag (PPP)on 2024 INR Coag (Bld) [Relative time] 2.1 {INR} [facility] CNPNon 05-21-2024 CNPN Normal [facility] CNPNon 05-16-2024 CNPN Normal [facility] PT panel Coag (PPP)on 2024 INR Coag (Bld) [Relative time] 1.5 (ext) 2.0 - 3.0 [facility] 12 Lead EKG performed by BMS on 05-14-2024 12 Lead EKG performed by BMS Normal [facility] Cardiology Visit Reporton [facility] PT panel Coag (PPP)on 2024 INR Coag (Bld) [Relative time] 1.9 {INR} [facility] Comment on above: EXT [facility] CNOVon 05-08-2024 CNOV Normal [facility] US CAROTID ARTERIES KWADWO VAS LABon 05-08-2024 US CAROTID ARTERIES KWADWO VAS LAB Normal [facility] CNPNon 05-03-2024 CNPN Normal [facility] CNPNon 05-01-2024 CNPN Normal [facility] PT panel Coag (PPP)on 2023 INR Coag (Bld) [Relative time] 2.5 (ext) 2.0 - 3.0 [facility] CNPNon 04-30-2024 CNPN Normal [facility] CNPNon 04-27-2024 CNPN Normal [facility] Basic Metabolic Profile (BMP )on 04-24-2024 BUN Normal 11-16 [facility] Comment on above: Result Comment: Gloria elled via OM: Order cancelled - Patient discharged Performed By: #### L 100.0100, L500.2500 ####[facility] [address] [place], [place], [address] BUN/CRE Normal - [facility] Comment on above: Result Comment: Canc elled via OM: Order cancelled - Patient discharged Performed By: #### L 100.0100, L500.2500 ####[facility] [address] [place], [address] CA,Total Normal 8.5-10.1 [facility] Comment on above: Result Comment: Canc elled via OM: Order cancelled - Patient discharged Performed By: #### L 100.0100, L500.2500 ####[facility] [address] [place], [address] CL Normal 98-107 [facility] Comment on above: Result Comment: Canc elled via OM: Order cancelled - Patient discharged Performed By: #### L 100.0100, L500.2500 ####[facility] [address] [place], [address] CO2 Normal 21.0-32.0 [facility] Comment on above: Result Comment: Canc elled via OM: Order cancelled - Patient discharged Performed By: #### L 100.0100, L500.2500 ####[facility] [address] [place], [address] CREAT,SERUM Normal 0.55-1.02 [facility] Comment on above: Result Comment: Canc elled via OM: Order cancelled - Patient discharged Performed By: #### L 100.0100, L500.2500 ####[facility] [address] [place], [address] EST GFR Normal >60 [facility] Comment on above: Result Comment: Canc elled via OM: Order cancelled - Patient discharged Performed By: #### L 100.0100, L500.2500 ####[facility] [address] [place], [address] EST GFR - AA Normal >60 [facility] Comment on above: Result Comment: Canc elled via OM: Order cancelled - Patient discharged Performed By: #### L 100.0100, L500.2500 ####[facility] [address] [place], [address] GAP Normal 5-15 [facility] Comment on above: Result Comment: Canc elled via OM: Order cancelled - Patient discharged Performed By: #### L 100.0100, L500.2500 ####[facility] [address] [place], [address] GLU Normal 74-106 [facility] Comment on above: Result Comment: Canc elled via OM: Order cancelled - Patient discharged Performed By: #### L 100.0100, L500.2500 ####[facility] [address] [place], [address] Potassium Normal 3.5-5.1 [facility] Comment on above: Result Comment: Canc elled via OM: Order cancelled - Patient discharged Performed By: #### L 100.0100, L500.2500 ####[facility] [address] [place], [address] Basic Metabolic Profile (BMP) Normal 136-145 [facility] Comment on above: Result Comment: Canc elled via OM: Order cancelled - Patient discharged Performed By: #### L 100.0100, L500.2500 ####[facility] [address] [place], [address] CBC W/Diff, Automatedon 12-2 Absolute Neut Normal 2.0-7.7 [facility] Comment on above: Result Comment: Canc elled via OM: Order cancelled - Patient discharged Performed By: #### L 100.0100, L500.2500 ####[facility] [address] [place], [address] HCT Normal 37-47 [facility] Comment on above: Result Comment: Canc elled via OM: Order cancelled - Patient discharged Performed By: #### L 100.0100, L500.2500 ####[facility] [address] [place], [address] HGB Normal 12.0-15.0 [facility] Comment on above: Result Comment: Canc elled via OM: Order cancelled - Patient discharged Performed By: #### L 100.0100, L500.2500 ####[facility] [address] [place], [address] MCH Normal 27.0-32.0 [facility] Comment on above: Result Comment: Canc elled via OM: Order cancelled - Patient discharged Performed By: #### L 100.0100, L500.2500 ####[facility] [address] [place], [address] MCHC Normal 32-36 [facility] Comment on above: Result Comment: Canc elled via OM: Order cancelled - Patient discharged Performed By: #### L 100.0100, L500.2500 ####[facility] [address] [place], [address] MCV Normal 81-99 [facility] Comment on above: Result Comment: Canc elled via OM: Order cancelled - Patient discharged Performed By: #### L 100.0100, L500.2500 ####[facility] [address] [place], [address] NEUT% Normal 47-70 [facility] Comment on above: Result Comment: Canc elled via OM: Order cancelled - Patient discharged Performed By: #### L 100.0100, L500.2500 ####[facility] [address] [place], [address] PLT Normal 150-450 [facility] Comment on above: Result Comment: Canc elled via OM: Order cancelled - Patient discharged Performed By: #### L 100.0100, L500.2500 ####[facility] [address] [place], [address] RBC Normal 4.2-5.4 [facility] Comment on above: Result Comment: Canc elled via OM: Order cancelled - Patient discharged Performed By: #### L 100.0100, L500.2500 ####[facility] [address] [place], [address] RDW CV Normal 11.6-14.6 [facility] Comment on above: Result Comment: Canc elled via OM: Order cancelled - Patient discharged Performed By: #### L 100.0100, L500.2500 ####[facility] [address] [place], [address] RDW SD Normal 35.1-43.9 [facility] Comment on above: Result Comment: Canc elled via OM: Order cancelled - Patient discharged Performed By: #### L 100.0100, L500.2500 ####[facility] [address] [place], [address] WBC Normal 4.4-11.0 [facility] Comment on above: Result Comment: Canc elled via OM: Order cancelled - Patient discharged Performed By: #### L 100.0100, L500.2500 ####[facility] [address] [place], [address] CNOVon 04-23-2024 CNOV Normal [facility] CNPNon 04-23-2024 CNPN Normal [facility] PT panel Coag (PPP)on 2023 INR Coag (PPP) [Relative time] 4.1 {INR} High 0.9-1.3 [facility] Comment on above: Order Comment: Speci men Type: BLOOD SPECIMENOrdering Facility: [facility] Address: [address] [place] [address] Result Comment: Geetha min K Antagonist (VKA) Therapeutic Range: INR 2 to 3 (Target INR of 2.5)Note: For patients treated with VKA drugs, such as warfarin, the [employer] 2012 Guideline recommends [...] 2.5 to 3.5 (target INR of 3).Oscar WILLIAM, et al. Chest 2012, 141:7S-47SNishimeileen RA, et al. [facility] 2017, 70: 252-289 Performed By: #### 3 4528-0 ####[facility] [id number] [place] [address] [place] PT Coag (PPP) [Time] 38.8 s High <13.1 [facility] Comment on above: Order Comment: Speci men Type: BLOOD SPECIMENOrdering Facility: [facility] Address: [address] [place] [address] Performed By: #### 3 4528-0 ####[facility] [id number] [place] [address] [place] Prothrombin Time w/INRon INR Normal [facility] Comment on above: Result Comment: Canc elled via OM: Order cancelled - Patient discharged Performed By: #### L 300.3900 ####[facility] [address] [facility] [id number] PROTIME Normal 11.7-14.9 [facility] Comment on above: Result Comment: Canc elled via OM: Order cancelled - Patient discharged Performed By: #### L 300.3900 ####[facility] [address] [place], [address] CNPNon 04-18-2024 CNPN Normal [facility] PT panel Coag (PPP)on 2023 INR Coag (Bld) [Relative time] 3.3 EXT 2.0 - 3.0 [facility] INR resulted on 04/18/2024 at Home with [facility] fingerstick INR. Aleisha Shaffer RN [facility] Basic Metabolic Profile (BMP )on 04-17-2024 BUN Normal 7-18 [facility] Comment on above: Result Comment: Canc elled via OM: Order cancelled - Patient discharged Performed By: #### L 100.0100, L500.2500 ####[facility] [address] [place], [address] BUN/CRE Normal 10-20 [facility] Comment on above: Result Comment: Canc elled via OM: Order cancelled - Patient discharged Performed By: #### L 100.0100, L500.2500 ####[facility] [address] [place], [address] CA,Total Normal 8.5-10.1 [facility] Comment on above: Result Comment: Canc elled via OM: Order cancelled - Patient discharged Performed By: #### L 100.0100, L500.2500 ####[facility] [address] [place], [address] CL Normal 98-107 [facility] Comment on above: Result Comment: Canc elled via OM: Order cancelled - Patient discharged Performed By: #### L 100.0100, L500.2500 ####[facility] [address] [place], [address] CO2 Normal 21.0-32.0 [facility] Comment on above: Result Comment: Canc elled via OM: Order cancelled - Patient discharged Performed By: #### L 100.0100, L500.2500 ####[facility] [address] [place], [address] CREAT,SERUM Normal 0.55-1.02 [facility] Comment on above: Result Comment: Canc elled via OM: Order cancelled - Patient discharged Performed By: #### L 100.0100, L500.2500 ####[facility] [address] [place], [address] EST GFR Normal >60 [facility] Comment on above: Result Comment: Canc elled via OM: Order cancelled - Patient discharged Performed By: #### L 100.0100, L500.2500 ####[facility] [address] [place], [address] EST GFR - AA Normal >60 [facility] Comment on above: Result Comment: Canc elled via OM: Order cancelled - Patient discharged Performed By: #### L 100.0100, L500.2500 ####[facility] [address] [place], [address] GAP Normal 5-15 [facility] Comment on above: Result Comment: Canc elled via OM: Order cancelled - Patient discharged Performed By: #### L 100.0100, L500.2500 ####[facility] [address] [place], [address] GLU Normal 74-106 [facility] Comment on above: Result Comment: Canc elled via OM: Order cancelled - Patient discharged Performed By: #### L 100.0100, L500.2500 ####[facility] [address] [place], [address] Potassium Normal 3.5-5.1 [facility] Comment on above: Result Comment: Canc elled via OM: Order cancelled - Patient discharged Performed By: #### L 100.0100, L500.2500 ####[facility] [address] [place], [address] Basic Metabolic Profile (BMP) Normal 136-145 [facility] Comment on above: Result Comment: Canc elled via OM: Order cancelled - Patient discharged Performed By: #### L 100.0100, L500.2500 ####[facility] [address] [place], [address] CBC W/Diff, Automatedon 12- Absolute Neut Normal 2.0-7.7 [facility] Comment on above: Result Comment: Canc elled via OM: Order cancelled - Patient discharged Performed By: #### L 100.0100, L500.2500 ####[facility] [address] [place], [address] HCT Normal 37-47 [facility] Comment on above: Result Comment: Canc elled via OM: Order cancelled - Patient discharged Performed By: #### L 100.0100, L500.2500 ####[facility] [address] [place], [address] HGB Normal 12.0-15.0 [facility] Comment on above: Result Comment: Canc elled via OM: Order cancelled - Patient discharged Performed By: #### L 100.0100, L500.2500 ####[facility] [address] [place], [address] MCH Normal 27.0-32.0 [facility] Comment on above: Result Comment: Canc elled via OM: Order cancelled - Patient discharged Performed By: #### L 100.0100, L500.2500 ####[facility] [address] [place], [address] MCHC Normal 32-36 [facility] Comment on above: Result Comment: Canc elled via OM: Order cancelled - Patient discharged Performed By: #### L 100.0100, L500.2500 ####[facility] [address] [place], [address] MCV Normal 81-99 [facility] Comment on above: Result Comment: Canc elled via OM: Order cancelled - Patient discharged Performed By: #### L 100.0100, L500.2500 ####[facility] [address] [place], [address] NEUT% Normal 47-70 [facility] Comment on above: Result Comment: Canc elled via OM: Order cancelled - Patient discharged Performed By: #### L 100.0100, L500.2500 ####[facility] [address] [place], [address] PLT Normal 150-450 [facility] Comment on above: Result Comment: Canc elled via OM: Order cancelled - Patient discharged Performed By: #### L 100.0100, L500.2500 ####[facility] [address] [place], [address] RBC Normal 4.2-5.4 [facility] Comment on above: Result Comment: Canc elled via OM: Order cancelled - Patient discharged Performed By: #### L 100.0100, L500.2500 ####[facility] [address] [place], [address] RDW CV Normal 11.6-14.6 [facility] Comment on above: Result Comment: Canc elled via OM: Order cancelled - Patient discharged Performed By: #### L 100.0100, L500.2500 ####[facility] [address] [place], [address] RDW SD Normal 35.1-43.9 [facility] Comment on above: Result Comment: Canc elled via OM: Order cancelled - Patient discharged Performed By: #### L 100.0100, L500.2500 ####[facility] [address] [place], [address] WBC Normal 4.4-11.0 [facility] Comment on above: Result Comment: Canc elled via OM: Order cancelled - Patient discharged Performed By: #### L 100.0100, L500.2500 ####[facility] [address] [place], [address] CNOVon 04-17-2024 CNOV Normal [facility] CNPNon 04-16-2024 CNPN Normal [facility] PT panel Coag (PPP)on 2023 INR Coag (Bld) [Relative time] 5.1 EXT 2.0 - 3.0 [facility] INR resulted on 04/16/2024 at home with [facility]. Aleisha Shaffer RN [facility] Prothrombin Time w/INRon INR Normal [facility] Comment on above: Result Comment: Canc elled via OM: Order cancelled - Patient discharged Performed By: #### L 300.3900 ####[facility] [address] [place], [address] PROTIME Normal 11.7-14.9 [facility] Comment on above: Result Comment: Canc elled via OM: Order cancelled - Patient discharged Performed By: #### L 300.3900 ####[facility] [address] [place], [address] [facility] CNPN Normal [facility] Prothrombin Time w/INRon INR Normal [facility] Comment on above: Result Comment: Canc elled via OM: Order cancelled - Patient discharged Performed By: #### L 300.3900 ####[facility] [address] [place], [address] PROTIME Normal 11.7-14.9 [facility] Comment on above: Result Comment: Canc elled via OM: Order cancelled - Patient discharged Performed By: #### L 300.3900 ####[facility] [address] [place], [address] CNPNon 04-11-2024 CNPN Normal [facility] Basic Metabolic Profile (BMP )on 04-10-2024 BUN Normal 7-18 [facility] Comment on above: Result Comment: Canc elled via OM: Order cancelled - Patient discharged Performed By: #### L 100.0100, L500.2500 ####[facility] [address] [place], [address] BUN/CRE Normal 10-20 [facility] Comment on above: Result Comment: Canc elled via OM: Order cancelled - Patient discharged Performed By: #### L 100.0100, L500.2500 ####[facility] [address] [place], [address] CA,Total Normal 8.5-10.1 [facility] Comment on above: Result Comment: Canc elled via OM: Order cancelled - Patient discharged Performed By: #### L 100.0100, L500.2500 ####[facility] [address] [place], [address] CL Normal 98-107 [facility] Comment on above: Result Comment: Canc elled via OM: Order cancelled - Patient discharged Performed By: #### L 100.0100, L500.2500 ####[facility] [address] [place], [address] CO2 Normal 21.0-32.0 [facility] Comment on above: Result Comment: Canc elled via OM: Order cancelled - Patient discharged Performed By: #### L 100.0100, L500.2500 ####[facility] [address] [place], [address] CREAT,SERUM Normal 0.55-1.02 [facility] Comment on above: Result Comment: Canc elled via OM: Order cancelled - Patient discharged Performed By: #### L 100.0100, L500.2500 ####[facility] [address] [place], [address] EST GFR Normal >60 [facility] Comment on above: Result Comment: Canc elled via OM: Order cancelled - Patient discharged Performed By: #### L 100.0100, L500.2500 ####[facility] [address] [place], [address] EST GFR - AA Normal >60 [facility] Comment on above: Result Comment: Canc elled via OM: Order cancelled - Patient discharged Performed By: #### L 100.0100, L500.2500 ####[facility] [address] [place], [address] GAP Normal 5-15 [facility] Comment on above: Result Comment: Canc elled via OM: Order cancelled - Patient discharged Performed By: #### L 100.0100, L500.2500 ####[facility] [address] [place], [address] GLU Normal 74-106 [facility] Comment on above: Result Comment: Canc elled via OM: Order cancelled - Patient discharged Performed By: #### L 100.0100, L500.2500 ####[facility] [address] [place], [address] Potassium Normal 3.5-5.1 [facility] Comment on above: Result Comment: Canc elled via OM: Order cancelled - Patient discharged Performed By: #### L 100.0100, L500.2500 ####[facility] [address] [place], [address] Basic Metabolic Profile (BMP) Normal 136-145 [facility] Comment on above: Result Comment: Canc elled via OM: Order cancelled - Patient discharged Performed By: #### L 100.0100, L500.2500 ####[facility] [address] [place], [address] CBC W/Diff, Automatedon 12-1 0-2023 Absolute Neut Normal 2.0-7.7 [facility] Comment on above: Result Comment: Canc elled via OM: Order cancelled - Patient discharged Performed By: #### L 100.0100, L500.2500 ####[facility] [address] [place], [address] HCT Normal 37-47 [facility] Comment on above: Result Comment: Canc elled via OM: Order cancelled - Patient discharged Performed By: #### L 100.0100, L500.2500 ####[facility] [address] [place], [address] HGB Normal 12.0-15.0 [facility] Comment on above: Result Comment: Canc elled via OM: Order cancelled - Patient discharged Performed By: #### L 100.0100, L500.2500 ####[facility] [address] [place], [address] MCH Normal 27.0-32.0 [facility] Comment on above: Result Comment: Canc elled via OM: Order cancelled - Patient discharged Performed By: #### L 100.0100, L500.2500 ####[facility] [address] [place], [address] MCHC Normal 32-36 [facility] Comment on above: Result Comment: Canc elled via OM: Order cancelled - Patient discharged Performed By: #### L 100.0100, L500.2500 ####[facility] [address] [place], [address] MCV Normal 81-99 [facility] Comment on above: Result Comment: Canc elled via OM: Order cancelled - Patient discharged Performed By: #### L 100.0100, L500.2500 ####[facility] [address] [place], [address] NEUT% Normal 47-70 [facility] Comment on above: Result Comment: Canc elled via OM: Order cancelled - Patient discharged Performed By: #### L 100.0100, L500.2500 ####[facility] [address] [place], [address] PLT Normal 150-450 [facility] Comment on above: Result Comment: Canc elled via OM: Order cancelled - Patient discharged Performed By: #### L 100.0100, L500.2500 ####[facility] [address] [place], [address] RBC Normal 4.2-5.4 [facility] Comment on above: Result Comment: Canc elled via OM: Order cancelled - Patient discharged Performed By: #### L 100.0100, L500.2500 ####[facility] [address] [place], [address] RDW CV Normal 11.6-14.6 [facility] Comment on above: Result Comment: Canc elled via OM: Order cancelled - Patient discharged Performed By: #### L 100.0100, L500.2500 ####[facility] [address] [place], [address] RDW SD Normal 35.1-43.9 [facility] Comment on above: Result Comment: Canc elled via OM: Order cancelled - Patient discharged Performed By: #### L 100.0100, L500.2500 ####[facility] [address] [place], [address] WBC Normal 4.4-11.0 [facility] Comment on above: Result Comment: Canc elled via OM: Order cancelled - Patient discharged Performed By: #### L 100.0100, L500.2500 ####[facility] [address] [place], [address] Basic metabolic 2000 panelon 04-09-2024 Anion gap [Moles/Vol] 16 mmol/L High 8-15 [facility] Comment on above: Order Comment: Speci men Type: BLOOD SPECIMENOrdering Facility: [facility] Address: [address] [place] [address] Performed By: #### 2 4325-3, 72889-4 ####[facility] LABCLIA [id number] [place] [address] [place] Calcium [Mass/Vol] 10.3 mg/dL High 8.5-10.2 [facility] Comment on above: Order Comment: Speci men Type: BLOOD SPECIMENOrdering Facility: [facility] Address: [address] [place] [address] Performed By: #### 2 4325-3, 45555-8 ####[facility] LABCLIA [id number] [place] [address] [place] Chloride [Moles/Vol] 103 mmol/L Normal 98-107 [facility] Comment on above: Order Comment: Speci men Type: BLOOD SPECIMENOrdering Facility: [facility] Address: [address] [place] [address] Performed By: #### 2 432-3, 67728-1 ####[facility] LABCLIA [id number] [place] [address] [place] CO2 [Moles/Vol] 18 mmol/L Low 22-30 [facility] Comment on above: Order Comment: Speci men Type: BLOOD SPECIMENOrdering Facility: [facility] Address: [address] [place] [address] Performed By: #### 2 4325-3, 96199-7 ####[facility] LABCLIA [id number] [place] [address] [place] Creatinine [Mass/Vol] 0.82 mg/dL Normal 0.58-0.96 [facility] Comment on above: Order Comment: Speci men Type: BLOOD SPECIMENOrdering Facility: [facility] Address: [address] [place] [address] Performed By: #### 2 4325-3, 82645-6 ####[facility] LABCLIA [id number] [place] [address] [place] Creatinine and Glomerular filtration rate.predicted panel (S/P/Bld) 71 mL/min/1.73m??? Normal >=60 [facility] Comment on above: Order Comment: Miguel cunningham Type: BLOOD SPECIMENOrdering Facility: [facility] Address: [address] [place] [address] Result Comment: Kimberley mated Glomerular Filtration Rate [...] reflect actual GFR. Performed By: #### 2 4325-3, 62733-9 ####[facility] LABCLIA [id number] [place] [address] [place] Glucose [Mass/Vol] 149 mg/dL High 74-99 [facility] Comment on above: Order Comment: Miguel cunningham Type: BLOOD SPECIMENOrdering Facility: [facility] Address: [address] [place] [address] Result Comment: The [employer] (ADA) provides guidance for cutoff [...] Standards of Medical Care in Diabetes 2016, [employer]. Diabetes Care. 2016.39(Suppl 1). Performed By: #### 2 4325-3, 90628-0 ####[facility] LABCLIA [id number] [place] [address] [place] Potassium [Moles/Vol] 4.4 mmol/L Normal 3.7-5.1 [facility] Comment on above: Order Comment: Speci men Type: BLOOD SPECIMENOrdering Facility: [facility] Address: [address] [place], [place] [address] Performed By: #### 2 4325-3, 99739-4 ####[facility] LABCLIA [id number] [address] [address] [place] Sodium [Moles/Vol] 137 mmol/L Normal 136-144 [facility] Comment on above: Order Comment: Speci men Type: BLOOD SPECIMENOrdering Facility: [facility] Address: [address] [place], [place] [address] Performed By: #### 2 4325-3, 57120-8 ####[facility] LABCLIA [id number] [place] [address] [place] Urea nitrogen [Mass/Vol] 27 mg/dL High 7-21 [facility] Comment on above: Order Comment: Speci men Type: BLOOD SPECIMENOrdering Facility: [facility] Address: [address] [place] [address] Performed By: #### 2 4325-3, 07063-7 ####[facility] LABCLIA [id number] [place] [address] [place] CNPNon 04-09-2024 CNPN Normal [facility] Hepatic function 2000 panelo n 04-09-2024 Albumin [Mass/Vol] 4.3 g/dL Normal 3.9-4.9 [facility] Comment on above: Order Comment: Speci men Type: BLOOD SPECIMENOrdering Facility: [facility] Address: [address] [place], [place] [address] Performed By: #### 2 4325-3, 02261-8 ####[facility] LABCLIA [id number] [place] [id number] [place] ALP [Catalytic activity/Vol] 89 U/L Normal 34-123 [facility] Comment on above: Order Comment: Speci men Type: BLOOD SPECIMENOrdering Facility: [facility] Address: [address] [place] [id number] Performed By: #### 2 5-3, 70034-6 ####[facility] LABCLIA [id number] [place] [address] [place] ALT [Catalytic activity/Vol] 27 U/L Normal 7-38 [facility] Comment on above: Order Comment: Speci men Type: BLOOD SPECIMENOrdering Facility: [facility] Address: [address] [place] [address] Performed By: #### 2 4324-3, 64845-9 ####[facility] LABCLIA [id number] [place] [address] [place] AST [Catalytic activity/Vol] 28 U/L Normal 13-35 [facility] Comment on above: Order Comment: Speci men Type: BLOOD SPECIMENOrdering Facility: [facility] Address: [address] [place] [address] Performed By: #### 2 3, 67781-6 ####[facility] LABCLIA [id number] [place] [address] [place] Bilirubin [Mass/Vol] 0.4 mg/dL Normal 0.2-1.3 [facility] Comment on above: Order Comment: Speci men Type: BLOOD SPECIMENOrdering Facility: [facility] Address: [address] [place] [address] Performed By: #### 2 3, 23446-8 ####[facility] LABCLIA [id number] [place] [address] [place] Bilirubin.conjugated [Mass/Vol] mg/dL Normal <0.2 [facility] Comment on above: Order Comment: Speci men Type: BLOOD SPECIMENOrdering Facility: [facility] Address: [address] [place] [address] Performed By: #### 2 4324-3, 23324-9 ####[facility] LABCLIA [id number] [place] [address] [place] Protein [Mass/Vol] 8.0 g/dL Normal 6.3-8.0 [facility] Comment on above: Order Comment: Speci men Type: BLOOD SPECIMENOrdering Facility: [facility] Address: [address] [place] [address] Performed By: #### 2 4325-3, 81244-8 ####[facility] LABCLIA [id number] [place] [address] [place] PT panel Coag (PPP)on 2023 INR Coag (PPP) [Relative time] 1.7 {INR} High 0.9-1.3 [facility] Comment on above: Order Comment: Speci men Type: BLOOD SPECIMENOrdering Facility: [facility] Address: [address] [place] [address] Result Comment: Geetha min K Antagonist (VKA) Therapeutic Range: INR 2 to 3 (Target INR of 2.5)Note: For patients treated with VKA drugs, such as warfarin, the [employer] 2012 Guideline recommends [...] of 2.5 to 3.5 (target INR of 3).Jordytt GH, et al. Chest 2012, 141:7S-47SNishimura RA, et al. [facility] 2017, 70: 252-289 Performed By: #### 3 4528-0 ####[facility] [id number] [place] [address] [place] PT Coag (PPP) [Time] 17.0 s High <13.1 [facility] Comment on above: Order Comment: Speci men Type: BLOOD SPECIMENOrdering Facility: [facility] Address: [address] [place] [address] Performed By: #### 3 4528-0 ####[facility] [id number] [place], [place] [id number] [place] [address] [facility] Prothrombin Time w/INRon INR Normal [facility] Comment on above: Result Comment: Canc elled via OM: Order cancelled - Patient discharged Performed By: #### L 300.3900 ####[facility] [address] [place], [address] PROTIME Normal 11.7-14.9 [facility] Comment on above: Result Comment: Canc elled via OM: Order cancelled - Patient discharged Performed By: #### L 300.3900 ####[facility] [address] [place], [address] Bedside Glucoseon 04-08-2024 FINGERSTICK GLU 125 mg/dL High [address] [facility] Comment on above: Result Comment: LEVI AURORAENT OF PATIENT CARE PER NURSING PROTOCOL Performed By: #### L 501.080 ####[facility] [address] [place], [address] [facility] deOrdered By: Jason Smith on 04-08-2024 Bedside Glucose (Misc Panel) 125 mg/dL High [address] [facility] Comment on above: MANAGEMENT OF PATIEN T CARE PER NURSING PROTOCOL International normalized rat io (INR) calculationOrdered By: Jason Smith on 04-08-2024 INR Coag (Bld) [Relative time] 1.2 {INR} [facility] Prothrombin Time w/INRon INR Coag (PPP) [Relative time] 1.2 {INR} Normal [facility] Comment on above: Performed By: #### L 300.3900 ####[facility] [address] [place], [place], [address] PT Coag (PPP) [Time] 15.6 s High 11.7-14.9 [facility] Comment on above: Performed By: #### L 300.3900 ####[facility] [address] [place], [place], [id number] Prothrombin timeOrdered By: Jason Luis on 04-08-2024 PT Coag (PPP) [Time] 15.6 s High 11.7-14.9 [facility] Bedside Glucoseon 04-07-2024 FINGERSTICK GLU 146 mg/dL High 74-106 [facility] Comment on above: Result Comment: LEVI GEMENT OF PATIENT CARE PER NURSING PROTOCOL Performed By: #### L 501.080 ####[facility] [address] [place], [place], [address] Bedside Glucoseon 04-06-2024 FINGERSTICK GLU 116 mg/dL High 74-106 [facility] Comment on above: Result Comment: LEVI GEMENT OF PATIENT CARE PER NURSING PROTOCOL Performed By: #### L 501.080 ####[facility] [address] [place], [place], [address] CNPTOUTREACHon 04-06-2024 CNPTOUTREACH Normal [facility] Absolute neutrophil countOrd ered By: Jason Pavonok on 04-05-2024 Neutrophils (Bld) [#/Vol] 4.1 10*3/uL 2.0-7.7 [facility] Basophil percentageOrdered B y: Jason Smith on 04-05-2024 Basophils/100 WBC (Bld) 0.8 % 0-1 [facility] Bedside Glucoseon 04-05-2024 FINGERSTICK GLU 110 mg/dL High 74-106 [facility] Comment on above: Result Comment: LEVI GEMENT OF PATIENT CARE PER NURSING PROTOCOL Performed By: #### L 501.080 ####[facility] [address] [place], [address] CBC W/Diff, Automatedon 12-0 5-2024 Absolute Lymph 1.39 X10 3/uL Normal 0.83-4.51 [facility] Comment on above: Performed By: #### L 100.0100 ####[facility] [address] [place], [address] Absolute Neut 4.1 X10 3/uL Normal 2.0-7.7 [facility] Comment on above: Performed By: #### L 100.0100 ####[facility] [address] [place], [address] Basophils/100 WBC (Bld) 0.8 % Normal 0-1 [facility] Comment on above: Performed By: #### L 100.0100 ####[facility] [address] [place], [address] Eosinophils/100 WBC (Bld) 2.7 % Normal 0-5 [facility] Comment on above: Performed By: #### L 100.0100 ####[facility] [address] [place], [address] Erythrocyte distribution width (RBC) [Ratio] 16.3 % High 11.6-14.6 [facility] Comment on above: Performed By: #### L 100.0100 ####[facility] [address] [place], [address] Hematocrit (Bld) [Volume fraction] 39.1 % Normal 37-47 [facility] Comment on above: Performed By: #### L 100.0100 ####[facility] [address] [place], [address] Hemoglobin (Bld) [Mass/Vol] 12.3 g/dL Normal 12.0-15.0 [facility] Comment on above: Performed By: #### L 100.0100 ####[facility] [address] [place], [address] IG% 0.300 Normal 0.0-0.9 [facility] Comment on above: Result Comment: IG% - Immature Granulocytes (promyelocytes, myelocytes andmetamyelocytes) > 1% indicates that a LEFT SHIFT is Present. Performed By: #### L 100.0100 ####[facility] [address] [place], [address] Lymphocytes/100 WBC (Bld) 21.1 % Normal 19-41 [facility] Comment on above: Performed By: #### L 100.0100 ####[facility] [address] [place], [address] MCH (RBC) [Entitic mass] 28.8 pg Normal 27.0-32.0 [facility] Comment on above: Performed By: #### L 100.0100 ####[facility] [address] [place], [address] MCHC (RBC) [Mass/Vol] 31.5 g/dL Low 32-36 [facility] Comment on above: Performed By: #### L 100.0100 ####[facility] [address] [place], [address] MCV (RBC) [Entitic vol] 91.6 fL Normal 81-99 [facility] Comment on above: Performed By: #### L 100.0100 ####[facility] [address] [place], [address] Monocytes/100 WBC (Bld) 12.6 % High 0-10 [facility] Comment on above: Performed By: #### L 100.0100 ####[facility] [address] [place], [address] Neutrophils/100 WBC (Bld) 62.5 % Normal 47-70 [facility] Comment on above: Performed By: #### L 100.0100 ####[facility] [address] [place], [address] Nucleated RBC (Bld) [#/Vol] 0 10*3/uL Normal 0-5 [facility] Comment on above: Performed By: #### L 100.0100 ####[facility] [address] [place], [address] Platelet mean volume (Bld) [Entitic vol] 9.2 fL Normal 6.2-12.0 [facility] Comment on above: Performed By: #### L 100.0100 ####[facility] [address] [place], [address] Platelets (Bld) [#/Vol] 307 10*3/uL Normal 150-450 [facility] Comment on above: Performed By: #### L 100.0100 ####[facility] [address] [place], [address] RBC (Bld) [#/Vol] 4.27 10*6/uL Normal 4.2-5.4 [facility] Comment on above: Performed By: #### L 100.0100 ####[facility] [address] [place], [address] RDW SD 54.7 fl High 35.1-43.9 [facility] Comment on above: Performed By: #### L 100.0100 ####[facility] [address] [place], [address] WBC (Bld) [#/Vol] 6.6 10*3/uL Normal 4.4-11.0 [facility] Comment on above: Performed By: #### L 100.0100 ####[facility] [address] [place], [address] CNPNon 04-05-2024 CNPN Normal [facility] Eosinophil percentageOrdered By: Jason Smith on 04-05-2024 Eosinophils/100 WBC (Bld) 2.7 % 0-5 [facility] Erythrocyte distribution wid th ratioOrdered By: [facility] on 04-05-2024 Erythrocyte distribution width (RBC) [Ratio] 16.3 % High 11.6-14.6 [facility] Erythrocyte distribution wid th standard deviationOrdered By: [facility] 04-05-2024 Erythrocyte distribution width (RBC) [Entitic vol] 54.7 fL High 35.1-43.9 [facility] Hematocrit Auto (Bld) [Volum e fraction]Ordered By: [facility] on 04-05-2024 Hematocrit (Bld) [Volume fraction] 39.1 % 37-47 [facility] Hemoglobin measurementOrdere d By: [facility] 04-05-2024 Hemoglobin (Bld) [Mass/Vol] 12.3 g/dL 12.0-15.0 [facility] Immature granulocytes/100 WB C Auto (Bld)Ordered By: [facility] 04-05-2024 Immature granulocytes/100 WBC (Bld) 0.300 % 0.0-0.9 [facility] Comment on above: IG% - Immature Granu locytes (promyelocytes, myelocytes and metamyelocytes) > 1% indicates that a LEFT SHIFT is Present. Lymphocytes Auto (Unsp spec) [#/Vol]Ordered By: [facility] 04-05-2024 Lymphocytes (Bld) [#/Vol] 1.39 10*3/uL 0.83-4.51 [facility] Lymphocytes/100 WBC Auto (Un sp spec)Ordered By: [facility] 04-05-2024 Lymphocytes/100 WBC (Bld) 21.1 % 19-41 [facility] MCV (mean corpuscular volume ) determinationOrdered By: [facility] 04-05-2024 MCV (RBC) [Entitic vol] 91.6 fL 81-99 [facility] Mean corpuscular hemoglobin (MCH) determinationOrdered By: [facility] 04-05-2024 MCH (RBC) [Entitic mass] 28.8 pg 27.0-32.0 [facility] Mean corpuscular hemoglobin concentration (MCHC) determinationOrdered By: Jason Luis 04-05-2024 MCHC (RBC) [Mass/Vol] 31.5 g/dL Low 32-36 [facility] Mean platelet volume determi nationOrdered By: Jason Smith on 04-05-2024 Platelet mean volume (Bld) [Entitic vol] 9.2 fL 6.2-12.0 [facility] Monocyte percentageOrdered B y: Jason Smith on 04-05-2024 Monocytes/100 WBC (Bld) 12.6 % High 0-10 [facility] Neutrophil percentageOrdered By: Jason Smith on 04-05-2024 Neutrophils/100 WBC (Bld) 62.5 % 47-70 [facility] Nucleated red blood cell per centageOrdered By: Jason Smith on 04-05-2024 Nucleated RBC/100 WBC (Bld) [Ratio] 0 % 0-5 [facility] Platelet countOrdered By: Parth Smith on 04-05-2024 Platelets (Bld) [#/Vol] 307 10*3/uL 150-450 [facility] Prothrombin Time w/INRon INR Coag (PPP) [Relative time] 1.1 {INR} Normal [facility] Comment on above: Performed By: #### L 300.3900 ####[facility] [address] [place], [place], [id number] PT Coag (PPP) [Time] 14.1 s Normal 11.7-14.9 [facility] Comment on above: Performed By: #### L 300.3900 ####[facility] [address] [place], [place], [id number] RBC Auto (Bld) [#/Vol]Ordere d By: Jason Smith on 04-05-2024 RBC (Bld) [#/Vol] 4.27 10*6/uL 4.2-5.4 [facility] White blood cell (WBC) count Ordered By: Jason Smith on 04-05-2024 WBC (Bld) [#/Vol] 6.6 10*3/uL 4.4-11.0 [facility] Bedside Glucoseon 04-04-2024 FINGERSTICK GLU 131 mg/dL High 74-106 [facility] Comment on above: Result Comment: LEVI GEMENT OF PATIENT CARE PER NURSING PROTOCOL Performed By: #### L 501.080 ####[facility] [address] [place], [address] FINGERSTICK GLU 109 mg/dL High 74-106 [facility] Comment on above: Result Comment: LEVI GEMENT OF PATIENT CARE PER NURSING PROTOCOL Performed By: #### L 501.080 ####[facility] [address] [place], [address] EGD Reporton 04-04-2024 EGD Report Normal [facility] deOrdered By: Robb Giron on 04-04-2024 Bedside Glucose (Misc Panel) 131 mg/dL High 74-106 [facility] Comment on above: MANAGEMENT OF PATIEN T CARE PER NURSING PROTOCOL H Pylori (initial)on 024 H Pylori (initial) Normal [facility] Comment on above: Performed By: #### P H.PYLORI ####[facility] [address] [place], [address] MR/POSTOP.ANEon 04-04-2024 MR/POSTOP.ANE Normal [facility] MR/[id number] 04-04-2024 MR/POSTOPAN2 Normal [facility] Surgery Specimen Level Aj 04-04-2024 Surgery Specimen Level IV Normal [facility] Comment on above: Performed By: #### P SUIV ####[facility] [address] [place], [address] Basic Metabolic Profile (BMP )on 04-03-2024 BUN/CRE 43.0 RATIO High 10-20 [facility] Comment on above: Performed By: #### L 100.0100, L500.2500 ####[facility] [address] [place], [address] CA,Total 9.4 mg/dL Normal 8.5-10.1 [facility] Comment on above: Performed By: #### L 100.0100, L500.2500 ####[facility] [address] [place], [address] Chloride [Moles/Vol] 108 mmol/L High 98-107 [facility] Comment on above: Performed By: #### L 100.0100, L500.2500 ####[facility] [address] [place], [address] CO2 [Moles/Vol] 23.0 mmol/L Normal 21.0-32.0 [facility] Comment on above: Performed By: #### L 100.0100, L500.2500 ####[facility] [address] [place], [address] Creatinine [Mass/Vol] 0.77 mg/dL Normal 0.55-1.02 [facility] Comment on above: Result Comment: The validity of the calculated GFR GFRAA in patients over70 years has not been determined. Clinical correlation isessential. Performed By: #### L 100.0100, L500.2500 ####[facility] [address] [place], [address] ECRCL 46.93 ml/min Normal [facility] Comment on above: Performed By: #### L 100.0100, L500.2500 ####[facility] [address] [place], [address] EST GFR - AA 92 mL/min Normal >60 [facility] Comment on above: Result Comment: Afri can Sudanese GFR Calc Performed By: #### L 100.0100, L500.2500 ####[facility] [address] [place], [address] GAP 7 Normal 5-15 [facility] Comment on above: Performed By: #### L 100.0100, L500.2500 ####[facility] [address] [place], [address] GFR/1.73 sq M.predicted among non-blacks MDRD (S/P/Bld) [Vol rate/Area] 76 mL/min/{1.73_m2} Normal >60 [facility] Comment on above: Result Comment: Non- GFR Calc Performed By: #### L 100.0100, L500.2500 ####[facility] [address] [place], [address] Glucose [Mass/Vol] 89 mg/dL Normal 74-106 [facility] Comment on above: Performed By: #### L 100.0100, L500.2500 ####[facility] [address] [place], [address] Potassium [Moles/Vol] 3.6 mmol/L Normal 3.5-5.1 [facility] Comment on above: Performed By: #### L 100.0100, L500.2500 ####[facility] [address] [place], [address] Sodium [Moles/Vol] 138 mmol/L Normal 136-145 [facility] Comment on above: Performed By: #### L 100.0100, L500.2500 ####[facility] [address] [place], [address] Urea nitrogen [Mass/Vol] 33 mg/dL High 7-18 [facility] Comment on above: Performed By: #### L 100.0100, L500.2500 ####[facility] [address] [place], [address] Bedside Glucoseon 04-03-2024 FINGERSTICK GLU 98 mg/dL Normal 74-106 [facility] Comment on above: Result Comment: LEVI HYDE OF PATIENT CARE PER NURSING PROTOCOL Performed By: #### L 501.080 ####[facility] [address] [place], [address] Blood urea nitrogen (BUN)/cr eatinine ratioOrdered By: Jason Smith on 04-03-2024 Urea nitrogen/Creatinine [Mass ratio] 43.0 mg/mg High 10-20 [facility] CBC W/Diff, Automatedon 12-0 Absolute Lymph 1.62 X10 3/uL Normal 0.83-4.51 [facility] Comment on above: Performed By: #### L 100.0100, L500.2500 ####[facility] [address] [place], [address] Absolute Neut 2.6 X10 3/uL Normal 2.0-7.7 [facility] Comment on above: Performed By: #### L 100.0100, L500.2500 ####[facility] [address] [place], [address] Basophils/100 WBC (Bld) 1.1 % High 0-1 [facility] Comment on above: Performed By: #### L 100.0100, L500.2500 ####[facility] [address] [place], [address] Eosinophils/100 WBC (Bld) 3.9 % Normal 0-5 [facility] Comment on above: Performed By: #### L 100.0100, L500.2500 ####[facility] [address] [place], [address] Erythrocyte distribution width (RBC) [Ratio] 16.4 % High 11.6-14.6 [facility] Comment on above: Performed By: #### L 100.0100, L500.2500 ####[facility] [address] [place], [address] Hematocrit (Bld) [Volume fraction] 37.7 % Normal 37-47 [facility] Comment on above: Performed By: #### L 100.0100, L500.2500 ####[facility] [address] [place], [address] Hemoglobin (Bld) [Mass/Vol] 12.0 g/dL Normal 12.0-15.0 [facility] Comment on above: Performed By: #### L 100.0100, L500.2500 ####[facility] [address] [place], [address] IG% 0.400 Normal 0.0-0.9 [facility] Comment on above: Result Comment: IG% - Immature Granulocytes (promyelocytes, myelocytes andmetamyelocytes) > 1% indicates that a LEFT SHIFT is Present. Performed By: #### L 100.0100, L500.2500 ####[facility] [address] [place], [address] Lymphocytes/100 WBC (Bld) 30.2 % Normal 19-41 [facility] Comment on above: Performed By: #### L 100.0100, L500.2500 ####[facility] [address] [place], [address] MCH (RBC) [Entitic mass] 28.9 pg Normal 27.0-32.0 [facility] Comment on above: Performed By: #### L 100.0100, L500.2500 ####[facility] [address] [place], [address] MCHC (RBC) [Mass/Vol] 31.8 g/dL Low 32-36 [facility] Comment on above: Performed By: #### L 100.0100, L500.2500 ####[facility] [address] [place], [address] MCV (RBC) [Entitic vol] 90.8 fL Normal 81-99 [facility] Comment on above: Performed By: #### L 100.0100, L500.2500 ####[facility] [address] [place], [address] Monocytes/100 WBC (Bld) 15.9 % High 0-10 [facility] Comment on above: Performed By: #### L 100.0100, L500.2500 ####[facility] [address] [place], [address] Neutrophils/100 WBC (Bld) 48.5 % Normal 47-70 [facility] Comment on above: Performed By: #### L 100.0100, L500.2500 ####[facility] [address] [place], [address] Nucleated RBC (Bld) [#/Vol] 0 10*3/uL Normal 0-5 [facility] Comment on above: Performed By: #### L 100.0100, L500.2500 ####[facility] [address] [place], [address] Platelet mean volume (Bld) [Entitic vol] 8.9 fL Normal 6.2-12.0 [facility] Comment on above: Performed By: #### L 100.0100, L500.2500 ####[facility] [address] [place], [address] Platelets (Bld) [#/Vol] 361 10*3/uL Normal 150-450 [facility] Comment on above: Performed By: #### L 100.0100, L500.2500 ####[facility] [address] [place], [address] RBC (Bld) [#/Vol] 4.15 10*6/uL Low 4.2-5.4 [facility] Comment on above: Performed By: #### L 100.0100, L500.2500 ####[facility] [address] [place], [address] RDW SD 54.6 fl High 35.1-43.9 [facility] Comment on above: Performed By: #### L 100.0100, L500.2500 ####[facility] [address] [place], [address] WBC (Bld) [#/Vol] 5.4 10*3/uL Normal 4.4-11.0 [facility] Comment on above: Performed By: #### L 100.0100, L500.2500 ####[facility] [address] [place], [address] Carbon dioxide measurementOr dered By: Jason Smith on 04-03-2024 CO2 [Moles/Vol] 23.0 mmol/L 21.0-32.0 [facility] Chloride measurementOrdered By: Jason Smith on 04-03-2024 Chloride [Moles/Vol] 108 mmol/L High 98-107 [facility] Estimated glomerular filtrat ion rate (GFR) AmericanOrdered By: Jason Smith on 04-03-2024 Estimated GFR (MDRD) Amer 92 mL/min >60 [facility] Comment on above: GFR Calc Estimation of creatinine evelio aranceOrdered By: Jason Smith on 04-03-2024 Estimated Creatinine Clearance Calc 46.93 ml/min [facility] Glomerular filtration rate ( GFR) estimationOrdered By: Jason Smith 04-03-2024 Estimated GFR (MDRD) Non-Af Amer 76 mL/min >60 [facility] Comment on above: Non- GFR Calc Glucose measurementOrdered B y: Jason Smith on 04-03-2024 Glucose [Mass/Vol] 89 mg/dL 74-106 [facility] Potassium measurementOrdered By: Jason Smith 04-03-2024 Potassium [Moles/Vol] 3.6 mmol/L 3.5-5.1 [facility] Serum anion gap measurementO rdered By: Jason Smith 04-03-2024 Anion gap [Moles/Vol] 7 mmol/L 5-15 [facility] Serum or plasma calcium walker urement (mass/volume)Ordered By: Jason Smith 04-03-2024 Calcium [Mass/Vol] 9.4 mg/dL 8.5-10.1 [facility] Serum or plasma creatinine m easurement (mass/volume)Ordered By: Jason Smith on 04-03-2024 Creatinine [Mass/Vol] 0.77 mg/dL 0.55-1.02 [facility] Comment on above: The validity of the calculated GFR & GFRAA in patients over 70 years has not been determined. Clinical correlation is essential. Serum or plasma urea nitroge n measurement (mass/volume)Ordered By: Jason Smith on 04-03-2024 Urea nitrogen [Mass/Vol] 33 mg/dL High 7-18 [facility] Sodium levelOrdered By: Jason Smith on 04-03-2024 Sodium [Moles/Vol] 138 mmol/L 136-145 [facility] Bedside Glucoseon 04-02-2024 FINGERSTICK GLU 114 mg/dL High 74-106 [facility] Comment on above: Result Comment: LEVI HYDE OF PATIENT CARE PER NURSING PROTOCOL Performed By: #### L 501.080 ####[facility] [address] [place], [address] CBC W/Diff, Automatedon Absolute Lymph 1.45 X10 3/uL Normal 0.83-4.51 [facility] Comment on above: Performed By: #### L 100.0100 ####[facility] [address] [place], [address] Absolute Neut 2.8 X10 3/uL Normal 2.0-7.7 [facility] Comment on above: Performed By: #### L 100.0100 ####[facility] [address] [place], [address] Basophils/100 WBC (Bld) 0.9 % Normal 0-1 [facility] Comment on above: Performed By: #### L 100.0100 ####[facility] [address] [place], [address] Eosinophils/100 WBC (Bld) 3.5 % Normal 0-5 [facility] Comment on above: Performed By: #### L 100.0100 ####[facility] [address] [place], [address] Erythrocyte distribution width (RBC) [Ratio] 16.4 % High 11.6-14.6 [facility] Comment on above: Performed By: #### L 100.0100 ####[facility] [address] [place], [address] Hematocrit (Bld) [Volume fraction] 37.0 % Normal 37-47 [facility] Comment on above: Performed By: #### L 100.0100 ####[facility] [address] [place], [address] Hemoglobin (Bld) [Mass/Vol] 11.9 g/dL Low 12.0-15.0 [facility] Comment on above: Performed By: #### L 100.0100 ####[facility] [address] [place], [address] IG% 0.400 Normal 0.0-0.9 [facility] Comment on above: Result Comment: IG% - Immature Granulocytes (promyelocytes, myelocytes andmetamyelocytes) > 1% indicates that a LEFT SHIFT is Present. Performed By: #### L 100.0100 ####[facility] [address] [place], [address] Lymphocytes/100 WBC (Bld) 27.1 % Normal 19-41 [facility] Comment on above: Performed By: #### L 100.0100 ####[facility] [address] [place], [address] MCH (RBC) [Entitic mass] 29.4 pg Normal 27.0-32.0 [facility] Comment on above: Performed By: #### L 100.0100 ####[facility] [address] [place], [address] MCHC (RBC) [Mass/Vol] 32.2 g/dL Normal 32-36 [facility] Comment on above: Performed By: #### L 100.0100 ####[facility] [address] [place], [address] MCV (RBC) [Entitic vol] 91.4 fL Normal 81-99 [facility] Comment on above: Performed By: #### L 100.0100 ####[facility] [address] [place], [address] Monocytes/100 WBC (Bld) 15.9 % High 0-10 [facility] Comment on above: Performed By: #### L 100.0100 ####[facility] [address] [place], [address] Neutrophils/100 WBC (Bld) 52.2 % Normal 47-70 [facility] Comment on above: Performed By: #### L 100.0100 ####[facility] [address] [place], [address] Nucleated RBC (Bld) [#/Vol] 0.4 10*3/uL Normal 0-5 [facility] Comment on above: Performed By: #### L 100.0100 ####[facility] [address] [place], [address] Platelet mean volume (Bld) [Entitic vol] 9.1 fL Normal 6.2-12.0 [facility] Comment on above: Performed By: #### L 100.0100 ####[facility] [address] [place], [address] Platelets (Bld) [#/Vol] 386 10*3/uL Normal 150-450 [facility] Comment on above: Performed By: #### L 100.0100 ####[facility] [address] [place], [address] RBC (Bld) [#/Vol] 4.05 10*6/uL Low 4.2-5.4 [facility] Comment on above: Performed By: #### L 100.0100 ####[facility] [address] [place], [address] RDW SD 55.0 fl High 35.1-43.9 [facility] Comment on above: Performed By: #### L 100.0100 ####[facility] [address] [place], [address] WBC (Bld) [#/Vol] 5.4 10*3/uL Normal 4.4-11.0 [facility] Comment on above: Performed By: #### L 100.0100 ####[facility] [address] [place], [address] COVID 19 AG RAPID (XOCHILT Vaughn)on 04-02-2024 SARS-CoV-2 (COVID-19) RNA MARCOS+probe Ql (Unsp spec) Normal [facility] Comment on above: Performed By: #### M 100.505 ####[facility] [address] [place], [address] MR/CON.PCM.GIon 04-02-2024 MR/CON.PCM.GI Normal [facility] Prothrombin Time w/INRon INR Coag (PPP) [Relative time] 1.1 {INR} Normal [facility] Comment on above: Performed By: #### L 300.3900 ####[facility] [address] [place], [address] PT Coag (PPP) [Time] 14.2 s Normal 11.7-14.9 [facility] Comment on above: Performed By: #### L 300.3900 ####[facility] [address] [place], [address] SARS-CoV-2 (COVID-19) Ag IA. rapid Ql (Resp)Ordered By: Jason Smith on 04-02-2024 SARS-CoV-2 Antigen (Rapid) [facility] Bedside Glucoseon 04-01-2024 FINGERSTICK GLU 106 mg/dL Normal 74-106 [facility] Comment on above: Result Comment: LEVI GEMENT OF PATIENT CARE PER NURSING PROTOCOL Performed By: #### L 501.080 ####[facility] [address] [place], [address] Bedside Glucoseon 03-31-2024 FINGERSTICK GLU 109 mg/dL High 74-106 [facility] Comment on above: Result Comment: LEVI GEMENT OF PATIENT CARE PER NURSING PROTOCOL Performed By: #### L 501.080 ####[facility] [address] [place], [address] Bedside Glucoseon 03-30-2024 FINGERSTICK GLU 142 mg/dL High 74-106 [facility] Comment on above: Result Comment: LEVI GEMENT OF PATIENT CARE PER NURSING PROTOCOL Performed By: #### L 501.080 ####[facility] [address] [place], [address] Bedside Glucoseon 03-29-2024 FINGERSTICK GLU 107 mg/dL High 74-106 [facility] Comment on above: Result Comment: LEVI GEMENT OF PATIENT CARE PER NURSING PROTOCOL Performed By: #### L 501.080 ####[facility] [address] [place], [address] Prothrombin Time w/INRon INR Coag (PPP) [Relative time] 2.4 {INR} Normal [facility] Comment on above: Performed By: #### L 300.3900 ####[facility] [address] [place], [address] PT Coag (PPP) [Time] 26.2 s High 11.7-14.9 [facility] Comment on above: Performed By: #### L 300.3900 ####[facility] [address] [place], [address] Bedside Glucoseon 03-28-2024 FINGERSTICK GLU 106 mg/dL Normal 74-106 [facility] Comment on above: Result Comment: LEVI GEMENT OF PATIENT CARE PER NURSING PROTOCOL Performed By: #### L 501.080 ####[facility] [address] [place], [address] Lower GI hemoglobin IA Ql (S tl)Ordered By: Jason Smith on 03-28-2024 Stool Occult Blood (LATANYA) Positive Abnormal [facility] Stool Occult Blood iFOBon STOB Positive Normal [facility] Comment on above: Performed By: #### M 100.7900 ####[facility] [address] [place], [address] BRCon 03-27-2024 RC Normal [facility] Comment on above: Result Comment: [id number] AP RC TRANSFUSED 03/27/24 [id number] AP RC TRANSFUSED 03/27/24 1543 Performed By: #### B , [facility] ####[facility] [address] [place], [address] Basic Metabolic Profile (BMP )on 03-27-2024 BUN/CRE 46.6 RATIO High 10-20 [facility] Comment on above: Performed By: #### L 500.2500, L100.0100 ####[facility] [address] [place], [address] CA,Total 8.9 mg/dL Normal 8.5-10.1 [facility] Comment on above: Performed By: #### L 500.2500, L100.0100 ####[facility] [address] [place], [address] Chloride [Moles/Vol] 109 mmol/L High 98-107 [facility] Comment on above: Performed By: #### L 500.2500, L100.0100 ####[facility] [address] [place], [address] CO2 [Moles/Vol] 20.0 mmol/L Low 21.0-32.0 [facility] Comment on above: Performed By: #### L 500.2500, L100.0100 ####[facility] [address] [place], [address] Creatinine [Mass/Vol] 0.88 mg/dL Normal 0.55-1.02 [facility] Comment on above: Result Comment: The validity of the calculated GFR GFRAA in patients over70 years has not been determined. Clinical correlation isessential. Performed By: #### L 500.2500, L100.0100 ####[facility] [address] [place], [address] ECRCL 43.30 ml/min Normal [facility] Comment on above: Performed By: #### L 500.2500, L100.0100 ####[facility] [address] [place], [address] EST GFR - AA 79 mL/min Normal >60 [facility] Comment on above: Result Comment: Afri can Sudanese GFR Calc Performed By: #### L 500.2500, L100.0100 ####[facility] [address] [place], [address] GAP 7 Normal 5-15 [facility] Comment on above: Performed By: #### L 500.2500, L100.0100 ####[facility] [address] [place], [address] GFR/1.73 sq M.predicted among non-blacks MDRD (S/P/Bld) [Vol rate/Area] 65 mL/min/{1.73_m2} Normal >60 [facility] Comment on above: Result Comment: Non- GFR Calc Performed By: #### L 500.2500, L100.0100 ####[facility] [address] [place], [address] Glucose [Mass/Vol] 135 mg/dL High 74-106 [facility] Comment on above: Result Comment: Fast ing Glucose result greater than or equal to 126 mg/dLsuggests DIABETES MELLITUS per A.D.A. criteria. Performed By: #### L 500.2500, L100.0100 ####[facility] [address] [place], [address] Potassium [Moles/Vol] 4.2 mmol/L Normal 3.5-5.1 [facility] Comment on above: Performed By: #### L 500.2500, L100.0100 ####[facility] [address] [place], [address] Sodium [Moles/Vol] 136 mmol/L Normal 136-145 [facility] Comment on above: Performed By: #### L 500.2500, L100.0100 ####[facility] [address] [place], [address] Urea nitrogen [Mass/Vol] 41 mg/dL High 7-18 [facility] Comment on above: Performed By: #### L 500.2500, L100.0100 ####[facility] [address] [place], [address] Bedside Glucoseon 03-27-2024 FINGERSTICK GLU 122 mg/dL High 74-106 [facility] Comment on above: Result Comment: LEVI HYDE OF PATIENT CARE PER NURSING PROTOCOL Performed By: #### L 501.080 ####[facility] [address] [place], [address] CBC W/Diff, Automatedon 03-03 Absolute Lymph 1.35 X10 3/uL Normal 0.83-4.51 [facility] Comment on above: Performed By: #### L 500.2500, L100.0100 ####[facility] [address] [place], [address] Absolute Neut 4.3 X10 3/uL Normal 2.0-7.7 [facility] Comment on above: Performed By: #### L 500.2500, L100.0100 ####[facility] [address] [place], [address] Basophils/100 WBC (Bld) 0.6 % Normal 0-1 [facility] Comment on above: Performed By: #### L 500.2500, L100.0100 ####[facility] [address] [place], [address] Eosinophils/100 WBC (Bld) 1.8 % Normal 0-5 [facility] Comment on above: Performed By: #### L 500.2500, L100.0100 ####[facility] [address] [place], [address] Erythrocyte distribution width (RBC) [Ratio] 18.0 % High 11.6-14.6 [facility] Comment on above: Performed By: #### L 500.2500, L100.0100 ####[facility] [address] [place], [address] Hematocrit (Bld) [Volume fraction] 25.2 % Low 37-47 [facility] Comment on above: Performed By: #### L 500.2500, L100.0100 ####[facility] [address] [place], [address] Hemoglobin (Bld) [Mass/Vol] 7.8 g/dL Low 12.0-15.0 [facility] Comment on above: Performed By: #### L 500.2500, L100.0100 ####[facility] [address] [place], [address] IG% 0.500 Normal 0.0-0.9 [facility] Comment on above: Result Comment: IG% - Immature Granulocytes (promyelocytes, myelocytes andmetamyelocytes) > 1% indicates that a LEFT SHIFT is Present. Performed By: #### L 500.2500, L100.0100 ####[facility] [address] [place], [address] Lymphocytes/100 WBC (Bld) 20.7 % Normal 19-41 [facility] Comment on above: Performed By: #### L 500.2500, L100.0100 ####[facility] [address] [place], [address] MCH (RBC) [Entitic mass] 29.7 pg Normal 27.0-32.0 [facility] Comment on above: Performed By: #### L 500.2500, L100.0100 ####[facility] [address] [place], [address] MCHC (RBC) [Mass/Vol] 31.0 g/dL Low 32-36 [facility] Comment on above: Performed By: #### L 500.2500, L100.0100 ####[facility] [address] [place], [address] MCV (RBC) [Entitic vol] 95.8 fL Normal 81-99 [facility] Comment on above: Performed By: #### L 500.2500, L100.0100 ####[facility] [address] [place], [address] Monocytes/100 WBC (Bld) 10.1 % High 0-10 [facility] Comment on above: Performed By: #### L 500.2500, L100.0100 ####[facility] [address] [place], [address] Neutrophils/100 WBC (Bld) 66.3 % Normal 47-70 [facility] Comment on above: Performed By: #### L 500.2500, L100.0100 ####[facility] [address] [place], [address] Nucleated RBC (Bld) [#/Vol] 0.8 10*3/uL Normal 0-5 [facility] Comment on above: Performed By: #### L 500.2500, L100.0100 ####[facility] [address] [place], [address] Platelet mean volume (Bld) [Entitic vol] 9.3 fL Normal 6.2-12.0 [facility] Comment on above: Performed By: #### L 500.2500, L100.0100 ####[facility] [address] [place], [address] Platelets (Bld) [#/Vol] 439 10*3/uL Normal 150-450 [facility] Comment on above: Performed By: #### L 500.2500, L100.0100 ####[facility] [address] [place], [address] RBC (Bld) [#/Vol] 2.63 10*6/uL Low 4.2-5.4 [facility] Comment on above: Performed By: #### L 500.2500, L100.0100 ####[facility] [address] [place], [address] RDW SD 61.6 fl High 35.1-43.9 [facility] Comment on above: Performed By: #### L 500.2500, L100.0100 ####[facility] [address] [place], [address] WBC (Bld) [#/Vol] 6.5 10*3/uL Normal 4.4-11.0 [facility] Comment on above: Performed By: #### L 500.2500, L100.0100 ####[facility] [address] [place], [address] Type AND Screenon 03-27-2024 ABO and Rh group Nom (Bld) Blood group A Rh(D) positive Normal [facility] Comment on above: Order Comment: CMV N EG? NNumber of units to transfuse: 2Comments: right transmetatarsal amputationReason for Ordering Blood: AcuteAre the blood/blood products to be transfused? YIs the patient having/had surgery? YNWhkalyan [id number] Performed By: #### B TS, BRC ####[facility] [address] [place], [address] Basic Metabolic Profile (BMP )on 03-26-2024 BUN Normal 7-18 [facility] Comment on above: Result Comment: Canc elled via OM: Order cancelled - Patient discharged Performed By: #### L 500.2500, L100.0100 ####[facility] [address] [place], [address] BUN/CRE Normal 10-20 [facility] Comment on above: Result Comment: Canc elled via OM: Order cancelled - Patient discharged Performed By: #### L 500.2500, L100.0100 ####[facility] [address] [place], [address] CA,Total Normal 8.5-10.1 [facility] Comment on above: Result Comment: Canc elled via OM: Order cancelled - Patient discharged Performed By: #### L 500.2500, L100.0100 ####[facility] [address] [place], [address] CL Normal 98-107 [facility] Comment on above: Result Comment: Canc elled via OM: Order cancelled - Patient discharged Performed By: #### L 500.2500, L100.0100 ####[facility] [address] [place], [address] CO2 Normal 21.0-32.0 [facility] Comment on above: Result Comment: Canc elled via OM: Order cancelled - Patient discharged Performed By: #### L 500.2500, L100.0100 ####[facility] [address] [place], [address] CREAT,SERUM Normal 0.55-1.02 [facility] Comment on above: Result Comment: Canc elled via OM: Order cancelled - Patient discharged Performed By: #### L 500.2500, L100.0100 ####[facility] [address] [place], [address] EST GFR Normal >60 [facility] Comment on above: Result Comment: Canc elled via OM: Order cancelled - Patient discharged Performed By: #### L 500.2500, L100.0100 ####[facility] [address] [place], [address] EST GFR - AA Normal >60 [facility] Comment on above: Result Comment: Canc elled via OM: Order cancelled - Patient discharged Performed By: #### L 500.2500, L100.0100 ####[facility] [address] [place], [address] GAP Normal 5-15 [facility] Comment on above: Result Comment: Canc elled via OM: Order cancelled - Patient discharged Performed By: #### L 500.2500, L100.0100 ####[facility] [address] [place], [address] GLU Normal 74-106 [facility] Comment on above: Result Comment: Canc elled via OM: Order cancelled - Patient discharged Performed By: #### L 500.2500, L100.0100 ####[facility] [address] [place], [address] Potassium Normal 3.5-5.1 [facility] Comment on above: Result Comment: Canc elled via OM: Order cancelled - Patient discharged Performed By: #### L 500.2500, L100.0100 ####[facility] [address] [place], [address] Basic Metabolic Profile (BMP) Normal 136-145 [facility] Comment on above: Result Comment: Canc elled via OM: Order cancelled - Patient discharged Performed By: #### L 500.2500, L100.0100 ####[facility] [address] [place], [address] Bedside Glucoseon 03-26-2024 FINGERSTICK GLU 123 mg/dL High 74-106 [facility] Comment on above: Result Comment: LEVI HYDE OF PATIENT CARE PER NURSING PROTOCOL Performed By: #### L 501.080 ####[facility] [address] [place], [address] CBC W/Diff, Automatedon 03-03 Absolute Neut Normal 2.0-7.7 [facility] Comment on above: Result Comment: Canc elled via OM: Order cancelled - Patient discharged Performed By: #### L 500.2500, L100.0100 ####[facility] [address] [place], [address] HCT Normal 37-47 [facility] Comment on above: Result Comment: Canc elled via OM: Order cancelled - Patient discharged Performed By: #### L 500.2500, L100.0100 ####[facility] [address] [place], [address] HGB Normal 12.0-15.0 [facility] Comment on above: Result Comment: Canc elled via OM: Order cancelled - Patient discharged Performed By: #### L 500.2500, L100.0100 ####[facility] [address] [place], [address] MCH Normal 27.0-32.0 [facility] Comment on above: Result Comment: Canc elled via OM: Order cancelled - Patient discharged Performed By: #### L 500.2500, L100.0100 ####[facility] [address] [place], [address] MCHC Normal 32-36 [facility] Comment on above: Result Comment: Canc elled via OM: Order cancelled - Patient discharged Performed By: #### L 500.2500, L100.0100 ####[facility] [address] [place], [address] MCV Normal 81-99 [facility] Comment on above: Result Comment: Canc elled via OM: Order cancelled - Patient discharged Performed By: #### L 500.2500, L100.0100 ####[facility] [address] [place], [address] NEUT% Normal 47-70 [facility] Comment on above: Result Comment: Canc elled via OM: Order cancelled - Patient discharged Performed By: #### L 500.2500, L100.0100 ####[facility] [address] [place], [address] PLT Normal 150-450 [facility] Comment on above: Result Comment: Canc elled via OM: Order cancelled - Patient discharged Performed By: #### L 500.2500, L100.0100 ####[facility] [address] [place], [address] RBC Normal 4.2-5.4 [facility] Comment on above: Result Comment: Canc elled via OM: Order cancelled - Patient discharged Performed By: #### L 500.2500, L100.0100 ####[facility] [address] [place], [address] RDW CV Normal 11.6-14.6 [facility] Comment on above: Result Comment: Canc elled via OM: Order cancelled - Patient discharged Performed By: #### L 500.2500, L100.0100 ####[facility] [address] [place], [address] RDW SD Normal 35.1-43.9 [facility] Comment on above: Result Comment: Canc elled via OM: Order cancelled - Patient discharged Performed By: #### L 500.2500, L100.0100 ####[facility] [address] [place], [address] WBC Normal 4.4-11.0 [facility] Comment on above: Result Comment: Canc elled via OM: Order cancelled - Patient discharged Performed By: #### L 500.2500, L100.0100 ####[facility] [address] [place], [address] Prothrombin Time w/INRon INR Coag (PPP) [Relative time] 3.0 {INR} Normal [facility] Comment on above: Performed By: #### L 300.3900 ####[facility] [address] [place], [address] PT Coag (PPP) [Time] 30.6 s High 11.7-14.9 [facility] Comment on above: Performed By: #### L 300.3900 ####[facility] [address] [place], [address] Basic Metabolic Profile (BMP )on 03-25-2024 BUN Normal 7-18 [facility] Comment on above: Result Comment: Canc elled via OM: Order cancelled - Patient discharged Performed By: #### L 500.2500, L100.0100 ####[facility] [address] [place], [address] BUN/CRE Normal 10-20 [facility] Comment on above: Result Comment: Canc elled via OM: Order cancelled - Patient discharged Performed By: #### L 500.2500, L100.0100 ####[facility] [address] [place], [address] CA,Total Normal 8.5-10.1 [facility] Comment on above: Result Comment: Canc elled via OM: Order cancelled - Patient discharged Performed By: #### L 500.2500, L100.0100 ####[facility] [address] [place], [address] CL Normal 98-107 [facility] Comment on above: Result Comment: Canc elled via OM: Order cancelled - Patient discharged Performed By: #### L 500.2500, L100.0100 ####[facility] [address] [place], [address] CO2 Normal 21.0-32.0 [facility] Comment on above: Result Comment: Canc elled via OM: Order cancelled - Patient discharged Performed By: #### L 500.2500, L100.0100 ####[facility] [address] [place], [address] CREAT,SERUM Normal 0.55-1.02 [facility] Comment on above: Result Comment: Canc elled via OM: Order cancelled - Patient discharged Performed By: #### L 500.2500, L100.0100 ####[facility] [address] [place], [address] EST GFR Normal >60 [facility] Comment on above: Result Comment: Canc elled via OM: Order cancelled - Patient discharged Performed By: #### L 500.2500, L100.0100 ####[facility] [address] [place], [address] EST GFR - AA Normal >60 [facility] Comment on above: Result Comment: Canc elled via OM: Order cancelled - Patient discharged Performed By: #### L 500.2500, L100.0100 ####[facility] [address] [place], [address] GAP Normal 5-15 [facility] Comment on above: Result Comment: Canc elled via OM: Order cancelled - Patient discharged Performed By: #### L 500.2500, L100.0100 ####[facility] [address] [place], [address] GLU Normal 74-106 [facility] Comment on above: Result Comment: Canc elled via OM: Order cancelled - Patient discharged Performed By: #### L 500.2500, L100.0100 ####[facility] [address] [place], [address] Potassium Normal 3.5-5.1 [facility] Comment on above: Result Comment: Canc elled via OM: Order cancelled - Patient discharged Performed By: #### L 500.2500, L100.0100 ####[facility] [address] [place], [address] Basic Metabolic Profile (BMP) Normal 136-145 [facility] Comment on above: Result Comment: Canc elled via OM: Order cancelled - Patient discharged Performed By: #### L 500.2500, L100.0100 ####[facility] [address] [place], [address] Bedside Glucoseon 03-25-2024 FINGERSTICK GLU 139 mg/dL High 74-106 [facility] Comment on above: Result Comment: LEVI HYDE OF PATIENT CARE PER NURSING PROTOCOL Performed By: #### L 501.080 ####[facility] [address] [place], [address] CBC W/Diff, Automatedon 03-03 Absolute Neut Normal 2.0-7.7 [facility] Comment on above: Result Comment: Canc elled via OM: Order cancelled - Patient discharged Performed By: #### L 500.2500, L100.0100 ####[facility] [address] [place], [address] HCT Normal 37-47 [facility] Comment on above: Result Comment: Canc elled via OM: Order cancelled - Patient discharged Performed By: #### L 500.2500, L100.0100 ####[facility] [address] [place], [address] HGB Normal 12.0-15.0 [facility] Comment on above: Result Comment: Canc elled via OM: Order cancelled - Patient discharged Performed By: #### L 500.2500, L100.0100 ####[facility] [address] [place], [address] MCH Normal 27.0-32.0 [facility] Comment on above: Result Comment: Canc elled via OM: Order cancelled - Patient discharged Performed By: #### L 500.2500, L100.0100 ####[facility] [address] [place], [address] MCHC Normal 32-36 [facility] Comment on above: Result Comment: Canc elled via OM: Order cancelled - Patient discharged Performed By: #### L 500.2500, L100.0100 ####[facility] [address] [place], [address] MCV Normal 81-99 [facility] Comment on above: Result Comment: Canc elled via OM: Order cancelled - Patient discharged Performed By: #### L 500.2500, L100.0100 ####[facility] [address] [place], [address] NEUT% Normal 47-70 [facility] Comment on above: Result Comment: Canc elled via OM: Order cancelled - Patient discharged Performed By: #### L 500.2500, L100.0100 ####[facility] [address] [place], [address] PLT Normal 150-450 [facility] Comment on above: Result Comment: Canc elled via OM: Order cancelled - Patient discharged Performed By: #### L 500.2500, L100.0100 ####[facility] [address] [place], [address] RBC Normal 4.2-5.4 [facility] Comment on above: Result Comment: Canc elled via OM: Order cancelled - Patient discharged Performed By: #### L 500.2500, L100.0100 ####[facility] [address] [place], [address] RDW CV Normal 11.6-14.6 [facility] Comment on above: Result Comment: Canc elled via OM: Order cancelled - Patient discharged Performed By: #### L 500.2500, L100.0100 ####[facility] [address] [place], [address] RDW SD Normal 35.1-43.9 [facility] Comment on above: Result Comment: Canc elled via OM: Order cancelled - Patient discharged Performed By: #### L 500.2500, L100.0100 ####[facility] [address] [place], [address] WBC Normal 4.4-11.0 [facility] Comment on above: Result Comment: Canc elled via OM: Order cancelled - Patient discharged Performed By: #### L 500.2500, L100.0100 ####[facility] [address] [place], [address] Basic Metabolic Profile (BMP )on 03-24-2024 BUN Normal 7-18 [facility] Comment on above: Result Comment: Canc elled via OM: Order cancelled - Patient discharged Performed By: #### L 500.2500, L100.0100 ####[facility] [address] [place], [address] BUN/CRE Normal 10-20 [facility] Comment on above: Result Comment: Canc elled via OM: Order cancelled - Patient discharged Performed By: #### L 500.2500, L100.0100 ####[facility] [address] [place], [address] CA,Total Normal 8.5-10.1 [facility] Comment on above: Result Comment: Canc elled via OM: Order cancelled - Patient discharged Performed By: #### L 500.2500, L100.0100 ####[facility] [address] [place], [address] CL Normal 98-107 [facility] Comment on above: Result Comment: Canc elled via OM: Order cancelled - Patient discharged Performed By: #### L 500.2500, L100.0100 ####[facility] [address] [place], [address] CO2 Normal 21.0-32.0 [facility] Comment on above: Result Comment: Canc elled via OM: Order cancelled - Patient discharged Performed By: #### L 500.2500, L100.0100 ####[facility] [address] [place], [address] CREAT,SERUM Normal 0.55-1.02 [facility] Comment on above: Result Comment: Canc elled via OM: Order cancelled - Patient discharged Performed By: #### L 500.2500, L100.0100 ####[facility] [address] [place], [address] EST GFR Normal >60 [facility] Comment on above: Result Comment: Canc elled via OM: Order cancelled - Patient discharged Performed By: #### L 500.2500, L100.0100 ####[facility] [address] [place], [address] EST GFR - AA Normal >60 [facility] Comment on above: Result Comment: Canc elled via OM: Order cancelled - Patient discharged Performed By: #### L 500.2500, L100.0100 ####[facility] [address] [place], [address] GAP Normal 5-15 [facility] Comment on above: Result Comment: Canc elled via OM: Order cancelled - Patient discharged Performed By: #### L 500.2500, L100.0100 ####[facility] [address] [place], [address] GLU Normal 74-106 [facility] Comment on above: Result Comment: Canc elled via OM: Order cancelled - Patient discharged Performed By: #### L 500.2500, L100.0100 ####[facility] [address] [place], [address] Potassium Normal 3.5-5.1 [facility] Comment on above: Result Comment: Canc elled via OM: Order cancelled - Patient discharged Performed By: #### L 500.2500, L100.0100 ####[facility] [address] [place], [address] Basic Metabolic Profile (BMP) Normal 136-145 [facility] Comment on above: Result Comment: Canc elled via OM: Order cancelled - Patient discharged Performed By: #### L 500.2500, L100.0100 ####[facility] [address] [place], [address] Bedside Glucoseon 03-24-2024 FINGERSTICK GLU 120 mg/dL High 74-106 [facility] Comment on above: Result Comment: LEVI HYDE OF PATIENT CARE PER NURSING PROTOCOL Performed By: #### L 501.080 ####[facility] [address] [place], [address] CBC W/Diff, Automatedon 03-03 Absolute Neut Normal 2.0-7.7 [facility] Comment on above: Result Comment: Canc elled via OM: Order cancelled - Patient discharged Performed By: #### L 500.2500, L100.0100 ####[facility] [address] [place], [address] HCT Normal 37-47 [facility] Comment on above: Result Comment: Canc elled via OM: Order cancelled - Patient discharged Performed By: #### L 500.2500, L100.0100 ####[facility] [address] [place], [address] HGB Normal 12.0-15.0 [facility] Comment on above: Result Comment: Canc elled via OM: Order cancelled - Patient discharged Performed By: #### L 500.2500, L100.0100 ####[facility] [address] [place], [address] MCH Normal 27.0-32.0 [facility] Comment on above: Result Comment: Canc elled via OM: Order cancelled - Patient discharged Performed By: #### L 500.2500, L100.0100 ####[facility] [address] [place], [address] MCHC Normal 32-36 [facility] Comment on above: Result Comment: Canc elled via OM: Order cancelled - Patient discharged Performed By: #### L 500.2500, L100.0100 ####[facility] [address] [place], [address] MCV Normal 81-99 [facility] Comment on above: Result Comment: Canc elled via OM: Order cancelled - Patient discharged Performed By: #### L 500.2500, L100.0100 ####[facility] [address] [place], [address] NEUT% Normal 47-70 [facility] Comment on above: Result Comment: Canc elled via OM: Order cancelled - Patient discharged Performed By: #### L 500.2500, L100.0100 ####[facility] [address] [place], [address] PLT Normal 150-450 [facility] Comment on above: Result Comment: Canc elled via OM: Order cancelled - Patient discharged Performed By: #### L 500.2500, L100.0100 ####[facility] [address] [place], [address] RBC Normal 4.2-5.4 [facility] Comment on above: Result Comment: Canc elled via OM: Order cancelled - Patient discharged Performed By: #### L 500.2500, L100.0100 ####[facility] [address] [place], [address] RDW CV Normal 11.6-14.6 [facility] Comment on above: Result Comment: Canc elled via OM: Order cancelled - Patient discharged Performed By: #### L 500.2500, L100.0100 ####[facility] [address] [place], [address] RDW SD Normal 35.1-43.9 [facility] Comment on above: Result Comment: Canc elled via OM: Order cancelled - Patient discharged Performed By: #### L 500.2500, L100.0100 ####[facility] [address] [place], [address] WBC Normal 4.4-11.0 [facility] Comment on above: Result Comment: Canc elled via OM: Order cancelled - Patient discharged Performed By: #### L 500.2500, L100.0100 ####[facility] [address] [place], [address] Basic Metabolic Profile (BMP )on 03-23-2024 BUN/CRE 33.5 RATIO High 10-20 [facility] Comment on above: Performed By: #### L 500.2500 ####[facility] [address] [place], [address] CA,Total 8.6 mg/dL Normal 8.5-10.1 [facility] Comment on above: Performed By: #### L 500.2500 ####[facility] [address] [place], [address] Chloride [Moles/Vol] 111 mmol/L High 98-107 [facility] Comment on above: Performed By: #### L 500.2500 ####[facility] [address] [place], [address] CO2 [Moles/Vol] 22.0 mmol/L Normal 21.0-32.0 [facility] Comment on above: Performed By: #### L 500.2500 ####[facility] [address] [place], [address] Creatinine [Mass/Vol] 0.87 mg/dL Normal 0.55-1.02 [facility] Comment on above: Result Comment: The validity of the calculated GFR GFRAA in patients over70 years has not been determined. Clinical correlation isessential. Performed By: #### L 500.2500 ####[facility] [address] [place], [address] ECRCL 43.83 ml/min Normal [facility] Comment on above: Performed By: #### L 500.2500 ####[facility] [address] [place], [address] EST GFR - AA 80 mL/min Normal >60 [facility] Comment on above: Result Comment: Afri can Sudanese GFR Calc Performed By: #### L 500.2500 ####[facility] [address] [place], [address] GAP 4 Low 5-15 [facility] Comment on above: Performed By: #### L 500.2500 ####[facility] [address] [place], [address] GFR/1.73 sq M.predicted among non-blacks MDRD (S/P/Bld) [Vol rate/Area] 66 mL/min/{1.73_m2} Normal >60 [facility] Comment on above: Result Comment: Non- GFR Calc Performed By: #### L 500.2500 ####[facility] [address] [place], [address] Glucose [Mass/Vol] 136 mg/dL High 74-106 [facility] Comment on above: Result Comment: Fast ing Glucose result greater than or equal to 126 mg/dLsuggests DIABETES MELLITUS per A.D.A. criteria. Performed By: #### L 500.2500 ####[facility] [address] [place], [address] Potassium [Moles/Vol] 4.1 mmol/L Normal 3.5-5.1 [facility] Comment on above: Performed By: #### L 500.2500 ####[facility] [address] [place], [address] Sodium [Moles/Vol] 138 mmol/L Normal 136-145 [facility] Comment on above: Performed By: #### L 500.2500 ####[facility] [address] [place], [address] Urea nitrogen [Mass/Vol] 29 mg/dL High 7-18 [facility] Comment on above: Performed By: #### L 500.2500 ####[facility] [address] [place], [address] BUN Normal 7-18 [facility] Comment on above: Result Comment: Canc elled via OM: Order cancelled - Patient discharged Performed By: #### L 500.2500, L100.0100 ####[facility] [address] [place], [address] BUN/CRE Normal 10-20 [facility] Comment on above: Result Comment: Canc elled via OM: Order cancelled - Patient discharged Performed By: #### L 500.2500, L100.0100 ####[facility] [address] [place], [address] CA,Total Normal 8.5-10.1 [facility] Comment on above: Result Comment: Canc elled via OM: Order cancelled - Patient discharged Performed By: #### L 500.2500, L100.0100 ####[facility] [address] [place], [address] CL Normal 98-107 [facility] Comment on above: Result Comment: Canc elled via OM: Order cancelled - Patient discharged Performed By: #### L 500.2500, L100.0100 ####[facility] [address] [place], [address] CO2 Normal 21.0-32.0 [facility] Comment on above: Result Comment: Canc elled via OM: Order cancelled - Patient discharged Performed By: #### L 500.2500, L100.0100 ####[facility] [address] [place], [address] CREAT,SERUM Normal 0.55-1.02 [facility] Comment on above: Result Comment: Canc elled via OM: Order cancelled - Patient discharged Performed By: #### L 500.2500, L100.0100 ####[facility] [address] [place], [address] EST GFR Normal >60 [facility] Comment on above: Result Comment: Canc elled via OM: Order cancelled - Patient discharged Performed By: #### L 500.2500, L100.0100 ####[facility] [address] [place], [address] EST GFR - AA Normal >60 [facility] Comment on above: Result Comment: Canc elled via OM: Order cancelled - Patient discharged Performed By: #### L 500.2500, L100.0100 ####[facility] [address] [place], [address] GAP Normal 5-15 [facility] Comment on above: Result Comment: Canc elled via OM: Order cancelled - Patient discharged Performed By: #### L 500.2500, L100.0100 ####[facility] [address] [place], [address] GLU Normal 74-106 [facility] Comment on above: Result Comment: Canc elled via OM: Order cancelled - Patient discharged Performed By: #### L 500.2500, L100.0100 ####[facility] [address] [place], [address] Potassium Normal 3.5-5.1 [facility] Comment on above: Result Comment: Canc elled via OM: Order cancelled - Patient discharged Performed By: #### L 500.2500, L100.0100 ####[facility] [address] [place], [address] Basic Metabolic Profile (BMP) Normal 136-145 [facility] Comment on above: Result Comment: Canc elled via OM: Order cancelled - Patient discharged Performed By: #### L 500.2500, L100.0100 ####[facility] [address] [place], [address] Bedside Glucoseon 03-23-2024 FINGERSTICK GLU 155 mg/dL High 74-106 [facility] Comment on above: Result Comment: LEVI HYDE OF PATIENT CARE PER NURSING PROTOCOL Performed By: #### L 501.080 ####[facility] [address] [place], [address] CBC W/Diff, Automatedon 03-03 Absolute Neut Normal 2.0-7.7 [facility] Comment on above: Result Comment: Canc elled via OM: Order cancelled - Patient discharged Performed By: #### L 500.2500, L100.0100 ####[facility] [address] [place], [address] HCT Normal 37-47 [facility] Comment on above: Result Comment: Canc elled via OM: Order cancelled - Patient discharged Performed By: #### L 500.2500, L100.0100 ####[facility] [address] [place], [address] HGB Normal 12.0-15.0 [facility] Comment on above: Result Comment: Canc elled via OM: Order cancelled - Patient discharged Performed By: #### L 500.2500, L100.0100 ####[facility] [address] [place], [address] MCH Normal 27.0-32.0 [facility] Comment on above: Result Comment: Canc elled via OM: Order cancelled - Patient discharged Performed By: #### L 500.2500, L100.0100 ####[facility] [address] [place], [address] MCHC Normal 32-36 [facility] Comment on above: Result Comment: Canc elled via OM: Order cancelled - Patient discharged Performed By: #### L 500.2500, L100.0100 ####[facility] [address] [place], [address] MCV Normal 81-99 [facility] Comment on above: Result Comment: Canc elled via OM: Order cancelled - Patient discharged Performed By: #### L 500.2500, L100.0100 ####[facility] [address] [place], [address] NEUT% Normal 47-70 [facility] Comment on above: Result Comment: Canc elled via OM: Order cancelled - Patient discharged Performed By: #### L 500.2500, L100.0100 ####[facility] [address] [place], [address] PLT Normal 150-450 [facility] Comment on above: Result Comment: Canc elled via OM: Order cancelled - Patient discharged Performed By: #### L 500.2500, L100.0100 ####[facility] [address] [place], [address] RBC Normal 4.2-5.4 [facility] Comment on above: Result Comment: Canc elled via OM: Order cancelled - Patient discharged Performed By: #### L 500.2500, L100.0100 ####[facility] [address] [place], [address] RDW CV Normal 11.6-14.6 [facility] Comment on above: Result Comment: Canc elled via OM: Order cancelled - Patient discharged Performed By: #### L 500.2500, L100.0100 ####[facility] [address] [place], [address] RDW SD Normal 35.1-43.9 [facility] Comment on above: Result Comment: Canc elled via OM: Order cancelled - Patient discharged Performed By: #### L 500.2500, L100.0100 ####[facility] [address] [place], [address] WBC Normal 4.4-11.0 [facility] Comment on above: Result Comment: Canc elled via OM: Order cancelled - Patient discharged Performed By: #### L 500.2500, L100.0100 ####[facility] [address] [place], [address] COVID 19 AG RAPID (XOCHILT Vaughn)on 03-23-2024 SARS-CoV-2 (COVID-19) RNA MARCOS+probe Ql (Unsp spec) Normal [facility] Comment on above: Performed By: #### M 100.505 ####[facility] [address] [place], [address] Consultation - Surgicalon Consultation - Surgical Normal [facility] SARS-CoV-2 (COVID-19) Ag IA. rapid Ql (Resp)Ordered By: Jason Smith on 03-23-2024 SARS-CoV-2 Antigen (Rapid) [facility] Basic Metabolic Profile (BMP )on 03-22-2024 BUN Normal 7-18 [facility] Comment on above: Result Comment: Canc elled via OM: Order cancelled - Patient discharged Performed By: #### L 100.0100, L500.2500 ####[facility] [address] [place], [address] BUN/CRE Normal 10-20 [facility] Comment on above: Result Comment: Canc elled via OM: Order cancelled - Patient discharged Performed By: #### L 100.0100, L500.2500 ####[facility] [address] [place], [address] CA,Total Normal 8.5-10.1 [facility] Comment on above: Result Comment: Canc elled via OM: Order cancelled - Patient discharged Performed By: #### L 100.0100, L500.2500 ####[facility] [address] [place], [address] CL Normal 98-107 [facility] Comment on above: Result Comment: Canc elled via OM: Order cancelled - Patient discharged Performed By: #### L 100.0100, L500.2500 ####[facility] [address] [place], [address] CO2 Normal 21.0-32.0 [facility] Comment on above: Result Comment: Canc elled via OM: Order cancelled - Patient discharged Performed By: #### L 100.0100, L500.2500 ####[facility] [address] [place], [address] CREAT,SERUM Normal 0.55-1.02 [facility] Comment on above: Result Comment: Canc elled via OM: Order cancelled - Patient discharged Performed By: #### L 100.0100, L500.2500 ####[facility] [address] [place], [address] EST GFR Normal >60 [facility] Comment on above: Result Comment: Canc elled via OM: Order cancelled - Patient discharged Performed By: #### L 100.0100, L500.2500 ####[facility] [address] [place], [address] EST GFR - AA Normal >60 [facility] Comment on above: Result Comment: Canc elled via OM: Order cancelled - Patient discharged Performed By: #### L 100.0100, L500.2500 ####[facility] [address] [place], [address] GAP Normal 5-15 [facility] Comment on above: Result Comment: Canc elled via OM: Order cancelled - Patient discharged Performed By: #### L 100.0100, L500.2500 ####[facility] [address] [place], [address] GLU Normal 74-106 [facility] Comment on above: Result Comment: Canc elled via OM: Order cancelled - Patient discharged Performed By: #### L 100.0100, L500.2500 ####[facility] [address] [place], [address] Potassium Normal 3.5-5.1 [facility] Comment on above: Result Comment: Canc elled via OM: Order cancelled - Patient discharged Performed By: #### L 100.0100, L500.2500 ####[facility] [address] [place], [address] Basic Metabolic Profile (BMP) Normal 136-145 [facility] Comment on above: Result Comment: Canc elled via OM: Order cancelled - Patient discharged Performed By: #### L 100.0100, L500.2500 ####[facility] [address] [place], [address] Bedside Glucoseon 03-22-2024 FINGERSTICK GLU 130 mg/dL High 74-106 [facility] Comment on above: Result Comment: LEVI HYDE OF PATIENT CARE PER NURSING PROTOCOL Performed By: #### L 501.080 ####[facility] [address] [place], [address] CBC W/Diff, Automatedon 11-2 Absolute Neut Normal 2.0-7.7 [facility] Comment on above: Result Comment: Canc elled via OM: Order cancelled - Patient discharged Performed By: #### L 100.0100, L500.2500 ####[facility] [address] [place], [address] HCT Normal 37-47 [facility] Comment on above: Result Comment: Canc elled via OM: Order cancelled - Patient discharged Performed By: #### L 100.0100, L500.2500 ####[facility] [address] [place], [address] HGB Normal 12.0-15.0 [facility] Comment on above: Result Comment: Canc elled via OM: Order cancelled - Patient discharged Performed By: #### L 100.0100, L500.2500 ####[facility] [address] [place], [address] MCH Normal 27.0-32.0 [facility] Comment on above: Result Comment: Canc elled via OM: Order cancelled - Patient discharged Performed By: #### L 100.0100, L500.2500 ####[facility] [address] [place], [address] MCHC Normal 32-36 [facility] Comment on above: Result Comment: Canc elled via OM: Order cancelled - Patient discharged Performed By: #### L 100.0100, L500.2500 ####[facility] [address] [place], [address] MCV Normal 81-99 [facility] Comment on above: Result Comment: Canc elled via OM: Order cancelled - Patient discharged Performed By: #### L 100.0100, L500.2500 ####[facility] [address] [place], [address] NEUT% Normal 47-70 [facility] Comment on above: Result Comment: Canc elled via OM: Order cancelled - Patient discharged Performed By: #### L 100.0100, L500.2500 ####[facility] [address] [place], [address] PLT Normal 150-450 [facility] Comment on above: Result Comment: Canc elled via OM: Order cancelled - Patient discharged Performed By: #### L 100.0100, L500.2500 ####[facility] [address] [place], [address] RBC Normal 4.2-5.4 [facility] Comment on above: Result Comment: Canc elled via OM: Order cancelled - Patient discharged Performed By: #### L 100.0100, L500.2500 ####[facility] [address] [place], [address] RDW CV Normal 11.6-14.6 [facility] Comment on above: Result Comment: Canc elled via OM: Order cancelled - Patient discharged Performed By: #### L 100.0100, L500.2500 ####[facility] [address] [place], [address] RDW SD Normal 35.1-43.9 [facility] Comment on above: Result Comment: Canc elled via OM: Order cancelled - Patient discharged Performed By: #### L 100.0100, L500.2500 ####[facility] [address] [place], [address] WBC Normal 4.4-11.0 [facility] Comment on above: Result Comment: Canc elled via OM: Order cancelled - Patient discharged Performed By: #### L 100.0100, L500.2500 ####[facility] [address] [place], [address] Prothrombin Time w/INRon INR Coag (PPP) [Relative time] 2.5 {INR} Normal [facility] Comment on above: Performed By: #### L 300.3900 ####[facility] [address] [place], [address] PT Coag (PPP) [Time] 27.1 s High 11.7-14.9 [facility] Comment on above: Performed By: #### L 300.3900 ####[facility] [address] [place], [address] Basic Metabolic Profile (BMP )on 03-21-2024 BUN/CRE 23.3 RATIO High 02-18 [facility] Comment on above: Performed By: #### L 500.2500 ####[facility] [address] [place], [address] CA,Total 8.9 mg/dL Normal 8.5-10.1 [facility] Comment on above: Performed By: #### L 500.2500 ####[facility] [address] [place], [address] Chloride [Moles/Vol] 110 mmol/L High 98-107 [facility] Comment on above: Performed By: #### L 500.2500 ####[facility] [address] [place], [address] CO2 [Moles/Vol] 24.0 mmol/L Normal 21.0-32.0 [facility] Comment on above: Performed By: #### L 500.2500 ####[facility] [address] [place], [address] Creatinine [Mass/Vol] 0.73 mg/dL Normal 0.55-1.02 [facility] Comment on above: Result Comment: The validity of the calculated GFR GFRAA in patients over70 years has not been determined. Clinical correlation isessential. Performed By: #### L 500.2500 ####[facility] [address] [place], [address] ECRCL 47.11 ml/min Normal [facility] Comment on above: Performed By: #### L 500.2500 ####[facility] [address] [place], [address] EST GFR - AA 97 mL/min Normal >60 [facility] Comment on above: Result Comment: Afri can Sudanese GFR Calc Performed By: #### L 500.2500 ####[facility] [address] [place], [address] GAP 5 Normal 5-15 [facility] Comment on above: Performed By: #### L 500.2500 ####[facility] [facility] [address] [place], [address] GFR/1.73 sq M.predicted among non-blacks MDRD (S/P/Bld) [Vol rate/Area] 81 mL/min/{1.73_m2} Normal >60 [facility] Comment on above: Result Comment: Non- GFR Calc Performed By: #### L 500.2500 ####[facility] [address] [place], [address] Glucose [Mass/Vol] 111 mg/dL High 74-106 [facility] Comment on above: Result Comment: Fast ing Glucose result from 100 to 125 mg/dLsuggests IMPAIRED HOMEOSTASIS per A.D.A. criteria. Performed By: #### L 500.2500 ####[facility] [address] [place], [address] Potassium [Moles/Vol] 3.3 mmol/L Low 3.5-5.1 [facility] Comment on above: Performed By: #### L 500.2500 ####[facility] [address] [place], [address] Sodium [Moles/Vol] 140 mmol/L Normal 136-145 [facility] Comment on above: Performed By: #### L 500.2500 ####[facility] [address] [place], [address] Urea nitrogen [Mass/Vol] 17 mg/dL Normal 7-18 [facility] Comment on above: Performed By: #### L 500.2500 ####[facility] [address] [place], [address] BUN Normal 7-18 [facility] Comment on above: Result Comment: Canc elled via OM: Order cancelled - Patient discharged Performed By: #### L 100.0100, L500.2500 ####[facility] [address] [place], [address] BUN/CRE Normal 10-20 [facility] Comment on above: Result Comment: Canc elled via OM: Order cancelled - Patient discharged Performed By: #### L 100.0100, L500.2500 ####[facility] [address] [place], [address] CA,Total Normal 8.5-10.1 [facility] Comment on above: Result Comment: Canc elled via OM: Order cancelled - Patient discharged Performed By: #### L 100.0100, L500.2500 ####[facility] [address] [place], [address] CL Normal 98-107 [facility] Comment on above: Result Comment: Canc elled via OM: Order cancelled - Patient discharged Performed By: #### L 100.0100, L500.2500 ####[facility] [address] [place], [address] CO2 Normal 21.0-32.0 [facility] Comment on above: Result Comment: Canc elled via OM: Order cancelled - Patient discharged Performed By: #### L 100.0100, L500.2500 ####[facility] [address] [place], [address] CREAT,SERUM Normal 0.55-1.02 [facility] Comment on above: Result Comment: Canc elled via OM: Order cancelled - Patient discharged Performed By: #### L 100.0100, L500.2500 ####[facility] [address] [place], [address] EST GFR Normal >60 [facility] Comment on above: Result Comment: Canc elled via OM: Order cancelled - Patient discharged Performed By: #### L 100.0100, L500.2500 ####[facility] [address] [place], [address] EST GFR - AA Normal >60 [facility] Comment on above: Result Comment: Canc elled via OM: Order cancelled - Patient discharged Performed By: #### L 100.0100, L500.2500 ####[facility] [address] [place], [address] GAP Normal 5-15 [facility] Comment on above: Result Comment: Canc elled via OM: Order cancelled - Patient discharged Performed By: #### L 100.0100, L500.2500 ####[facility] [address] [place], [address] GLU Normal 74-106 [facility] Comment on above: Result Comment: Canc elled via OM: Order cancelled - Patient discharged Performed By: #### L 100.0100, L500.2500 ####[facility] [address] [place], [address] Potassium Normal 3.5-5.1 [facility] Comment on above: Result Comment: Canc elled via OM: Order cancelled - Patient discharged Performed By: #### L 100.0100, L500.2500 ####[facility] [address] [place], [address] Basic Metabolic Profile (BMP) Normal 136-145 [facility] Comment on above: Result Comment: Canc elled via OM: Order cancelled - Patient discharged Performed By: #### L 100.0100, L500.2500 ####[facility] [address] [place], [address] Bedside Glucoseon 4 FINGERSTICK GLU 108 mg/dL High 74-106 [facility] Comment on above: Result Comment: LEVI GEMENT OF PATIENT CARE PER NURSING PROTOCOL Performed By: #### L 501.080 ####[facility] [address] [place], [address] FINGERSTICK GLU 106 mg/dL Normal 74-106 [facility] Comment on above: Result Comment: LEVI GEMENT OF PATIENT CARE PER NURSING PROTOCOL Performed By: #### L 501.080 ####[facility] [address] [place], [address] FINGERSTICK GLU 117 mg/dL High 74-106 [facility] Comment on above: Result Comment: LEVI GEMENT OF PATIENT CARE PER NURSING PROTOCOL Performed By: #### L 501.080 ####[facility] [address] [place], [address] CBC W/Diff, Automatedon 112 0-2023 Absolute Neut Normal 2.0-7.7 [facility] Comment on above: Result Comment: Canc elled via OM: Order cancelled - Patient discharged Performed By: #### L 100.0100, L500.2500 ####[facility] [address] [facility] [address] HCT Normal 37-47 [facility] Comment on above: Result Comment: Canc elled via OM: Order cancelled - Patient discharged Performed By: #### L 100.0100, L500.2500 ####[facility] [address] [facility] [address] HGB Normal 12.0-15.0 [facility] Comment on above: Result Comment: Canc elled via OM: Order cancelled - Patient discharged Performed By: #### L 100.0100, L500.2500 ####[facility] [address] [place], [address] MCH Normal 27.0-32.0 [facility] Comment on above: Result Comment: Canc elled via OM: Order cancelled - Patient discharged Performed By: #### L 100.0100, L500.2500 ####[facility] [address] [place], [address] MCHC Normal 32-36 [facility] Comment on above: Result Comment: Canc elled via OM: Order cancelled - Patient discharged Performed By: #### L 100.0100, L500.2500 ####[facility] [address] [place], [address] MCV Normal 81-99 [facility] Comment on above: Result Comment: Canc elled via OM: Order cancelled - Patient discharged Performed By: #### L 100.0100, L500.2500 ####[facility] [address] [place], [address] NEUT% Normal 47-70 [facility] Comment on above: Result Comment: Canc elled via OM: Order cancelled - Patient discharged Performed By: #### L 100.0100, L500.2500 ####[facility] [address] [place], [address] PLT Normal 150-450 [facility] Comment on above: Result Comment: Canc elled via OM: Order cancelled - Patient discharged Performed By: #### L 100.0100, L500.2500 ####[facility] [address] [place], [address] RBC Normal 4.2-5.4 [facility] Comment on above: Result Comment: Canc elled via OM: Order cancelled - Patient discharged Performed By: #### L 100.0100, L500.2500 ####[facility] [address] [place], [address] RDW CV Normal 11.6-14.6 [facility] Comment on above: Result Comment: Canc elled via OM: Order cancelled - Patient discharged Performed By: #### L 100.0100, L500.2500 ####[facility] [address] [place], [address] RDW SD Normal 35.1-43.9 [facility] Comment on above: Result Comment: Canc elled via OM: Order cancelled - Patient discharged Performed By: #### L 100.0100, L500.2500 ####[facility] [address] [place], [address] WBC Normal 4.4-11.0 [facility] Comment on above: Result Comment: Canc elled via OM: Order cancelled - Patient discharged Performed By: #### L 100.0100, L500.2500 ####[facility] [address] [place], [address] Basic Metabolic Profile (BMP )on 03-20-2024 BUN/CRE 21.3 RATIO High 10-20 [facility] Comment on above: Performed By: #### L 500.2500, L100.0100 ####[facility] [address] [place], [address] CA,Total 9.2 mg/dL Normal 8.5-10.1 [facility] Comment on above: Performed By: #### L 500.2500, L100.0100 ####[facility] [address] [place], [address] Chloride [Moles/Vol] 109 mmol/L High 98-107 [facility] Comment on above: Performed By: #### L 500.2500, L100.0100 ####[facility] [address] [place], [address] CO2 [Moles/Vol] 23.0 mmol/L Normal 21.0-32.0 [facility] Comment on above: Performed By: #### L 500.2500, L100.0100 ####[facility] [address] [place], [address] Creatinine [Mass/Vol] 0.70 mg/dL Normal 0.55-1.02 [facility] Comment on above: Result Comment: The validity of the calculated GFR GFRAA in patients over70 years has not been determined. Clinical correlation isessential. Performed By: #### L 500.2500, L100.0100 ####[facility] [address] [place], [address] ECRCL 47.06 ml/min Normal [facility] Comment on above: Performed By: #### L 500.2500, L100.0100 ####[facility] [address] [place], [address] EST GFR - AA 102 mL/min Normal >60 [facility] Comment on above: Result Comment: Afri can Sudanese GFR Calc Performed By: #### L 500.2500, L100.0100 ####[facility] [address] [place], [address] GAP 6 Normal 5-15 [facility] Comment on above: Performed By: #### L 500.2500, L100.0100 ####[facility] [address] [place], [address] GFR/1.73 sq M.predicted among non-blacks MDRD (S/P/Bld) [Vol rate/Area] 84 mL/min/{1.73_m2} Normal >60 [facility] Comment on above: Result Comment: Non- GFR Calc Performed By: #### L 500.2500, L100.0100 ####[facility] [address] [place], [address] Glucose [Mass/Vol] 136 mg/dL High 74-106 [facility] Comment on above: Result Comment: Fast ing Glucose result greater than or equal to 126 mg/dLsuggests DIABETES MELLITUS per A.D.A. criteria. Performed By: #### L 500.2500, L100.0100 ####[facility] [address] [place], [address] Potassium [Moles/Vol] 3.2 mmol/L Low 3.5-5.1 [facility] Comment on above: Performed By: #### L 500.2500, L100.0100 ####[facility] [address] [place], [address] Sodium [Moles/Vol] 138 mmol/L Normal 136-145 [facility] Comment on above: Performed By: #### L 500.2500, L100.0100 ####[facility] [address] [place], [address] Urea nitrogen [Mass/Vol] 15 mg/dL Normal 7-18 [facility] Comment on above: Performed By: #### L 500.2500, L100.0100 ####[facility] [address] [place], [address] BUN Normal 7-18 [facility] Comment on above: Result Comment: Canc elled via OM: Order cancelled - Patient discharged Performed By: #### L 500.2500, L100.0100 ####[facility] [address] [place], [address] BUN/CRE Normal 10-20 [facility] Comment on above: Result Comment: Canc elled via OM: Order cancelled - Patient discharged Performed By: #### L 500.2500, L100.0100 ####[facility] [address] [place], [address] CA,Total Normal 8.5-10.1 [facility] Comment on above: Result Comment: Canc elled via OM: Order cancelled - Patient discharged Performed By: #### L 500.2500, L100.0100 ####[facility] [address] [place], [address] CL Normal 98-107 [facility] Comment on above: Result Comment: Canc elled via OM: Order cancelled - Patient discharged Performed By: #### L 500.2500, L100.0100 ####[facility] [address] [place], [address] CO2 Normal 21.0-32.0 [facility] Comment on above: Result Comment: Canc elled via OM: Order cancelled - Patient discharged Performed By: #### L 500.2500, L100.0100 ####[facility] [address] [place], [address] CREAT,SERUM Normal 0.55-1.02 [facility] Comment on above: Result Comment: Canc elled via OM: Order cancelled - Patient discharged Performed By: #### L 500.2500, L100.0100 ####[facility] [address] [place], [address] EST GFR Normal >60 [facility] Comment on above: Result Comment: Canc elled via OM: Order cancelled - Patient discharged Performed By: #### L 500.2500, L100.0100 ####[facility] [address] [place], [address] EST GFR - AA Normal >60 [facility] Comment on above: Result Comment: Canc elled via OM: Order cancelled - Patient discharged Performed By: #### L 500.2500, L100.0100 ####[facility] [address] [place], [address] GAP Normal 5-15 [facility] Comment on above: Result Comment: Canc elled via OM: Order cancelled - Patient discharged Performed By: #### L 500.2500, L100.0100 ####[facility] [address] [place], [address] GLU Normal 74-106 [facility] Comment on above: Result Comment: Canc elled via OM: Order cancelled - Patient discharged Performed By: #### L 500.2500, L100.0100 ####[facility] [address] [place], [address] Potassium Normal 3.5-5.1 [facility] Comment on above: Result Comment: Canc elled via OM: Order cancelled - Patient discharged Performed By: #### L 500.2500, L100.0100 ####[facility] [address] [place], [address] Basic Metabolic Profile (BMP) Normal 136-145 [facility] Comment on above: Result Comment: Canc elled via OM: Order cancelled - Patient discharged Performed By: #### L 500.2500, L100.0100 ####[facility] [address] [place], [address] Bedside Glucoseon 03-20-2024 FINGERSTICK GLU 120 mg/dL High 74-106 [facility] Comment on above: Result Comment: LEVI GEMENT OF PATIENT CARE PER NURSING PROTOCOL Performed By: #### L 501.080 ####[facility] [address] [place], [address] FINGERSTICK GLU 79 mg/dL Normal 74-106 [facility] Comment on above: Result Comment: LEVI GEMENT OF PATIENT CARE PER NURSING PROTOCOL Performed By: #### L 501.080 ####[facility] [address] [place], [address] FINGERSTICK GLU 124 mg/dL High 74-106 [facility] Comment on above: Result Comment: LEVI GEMENT OF PATIENT CARE PER NURSING PROTOCOL Performed By: #### L 501.080 ####[facility] [address] [place], [address] FINGERSTICK GLU 152 mg/dL High 74-106 [facility] Comment on above: Result Comment: LEVI GEMENT OF PATIENT CARE PER NURSING PROTOCOL Performed By: #### L 501.080 ####[facility] [address] [place], [address] CBC W/Diff, Automatedon 03-02 Absolute Lymph 1.27 X10 3/uL Normal 0.83-4.51 [facility] Comment on above: Performed By: #### L 500.2500, L100.0100 ####[facility] [address] [place], [address] Absolute Neut 4.1 X10 3/uL Normal 2.0-7.7 [facility] Comment on above: Performed By: #### L 500.2500, L100.0100 ####[facility] [address] [place], [address] Basophils/100 WBC (Bld) 0.8 % Normal 0-1 [facility] Comment on above: Performed By: #### L 500.2500, L100.0100 ####[facility] [address] [place], [address] Eosinophils/100 WBC (Bld) 1.7 % Normal 0-5 [facility] Comment on above: Performed By: #### L 500.2500, L100.0100 ####[facility] [address] [place], [address] Erythrocyte distribution width (RBC) [Ratio] 18.4 % High 11.6-14.6 [facility] Comment on above: Performed By: #### L 500.2500, L100.0100 ####[facility] [address] [place], [address] Hematocrit (Bld) [Volume fraction] 28.6 % Low 37-47 [facility] Comment on above: Performed By: #### L 500.2500, L100.0100 ####[facility] [address] [place], [address] Hemoglobin (Bld) [Mass/Vol] 9.2 g/dL Low 12.0-15.0 [facility] Comment on above: Performed By: #### L 500.2500, L100.0100 ####[facility] [address] [place], [address] IG% 0.500 Normal 0.0-0.9 [facility] Comment on above: Result Comment: IG% - Immature Granulocytes (promyelocytes, myelocytes andmetamyelocytes) > 1% indicates that a LEFT SHIFT is Present. Performed By: #### L 500.2500, L100.0100 ####[facility] [address] [place], [address] Lymphocytes/100 WBC (Bld) 19.9 % Normal 19-41 [facility] Comment on above: Performed By: #### L 500.2500, L100.0100 ####[facility] [address] [place], [address] MCH (RBC) [Entitic mass] 29.7 pg Normal 27.0-32.0 [facility] Comment on above: Performed By: #### L 500.2500, L100.0100 ####[facility] [address] [place], [address] MCHC (RBC) [Mass/Vol] 32.2 g/dL Normal 32-36 [facility] Comment on above: Performed By: #### L 500.2500, L100.0100 ####[facility] [address] [place], [address] MCV (RBC) [Entitic vol] 92.3 fL Normal 81-99 [facility] Comment on above: Performed By: #### L 500.2500, L100.0100 ####[facility] [address] [place], [address] Monocytes/100 WBC (Bld) 12.9 % High 0-10 [facility] Comment on above: Performed By: #### L 500.2500, L100.0100 ####[facility] [address] [place], [address] Neutrophils/100 WBC (Bld) 64.2 % Normal 47-70 [facility] Comment on above: Performed By: #### L 500.2500, L100.0100 ####[facility] [address] [place], [address] Nucleated RBC (Bld) [#/Vol] 0.3 10*3/uL Normal 0-5 [facility] Comment on above: Performed By: #### L 500.2500, L100.0100 ####[facility] [address] [place], [address] Platelet mean volume (Bld) [Entitic vol] 9.5 fL Normal 6.2-12.0 [facility] Comment on above: Performed By: #### L 500.2500, L100.0100 ####[facility] [address] [place], [address] Platelets (Bld) [#/Vol] 338 10*3/uL Normal 150-450 [facility] Comment on above: Performed By: #### L 500.2500, L100.0100 ####[facility] [address] [place], [address] RBC (Bld) [#/Vol] 3.10 10*6/uL Low 4.2-5.4 [facility] Comment on above: Performed By: #### L 500.2500, L100.0100 ####[facility] [address] [place], [address] RDW SD 60.8 fl High 35.1-43.9 [facility] Comment on above: Performed By: #### L 500.2500, L100.0100 ####[facility] [address] [place], [address] WBC (Bld) [#/Vol] 6.4 10*3/uL Normal 4.4-11.0 [facility] Comment on above: Performed By: #### L 500.2500, L100.0100 ####[facility] [address] [place], [address] Absolute Neut Normal 2.0-7.7 [facility] Comment on above: Result Comment: Canc elled via OM: Order cancelled - Patient discharged Performed By: #### L 500.2500, L100.0100 ####[facility] [address] [place], [address] HCT Normal 37-47 [facility] Comment on above: Result Comment: Canc elled via OM: Order cancelled - Patient discharged Performed By: #### L 500.2500, L100.0100 ####[facility] [address] [place], [address] HGB Normal 12.0-15.0 [facility] Comment on above: Result Comment: Canc elled via OM: Order cancelled - Patient discharged Performed By: #### L 500.2500, L100.0100 ####[facility] [address] [place], [address] MCH Normal 27.0-32.0 [facility] Comment on above: Result Comment: Canc elled via OM: Order cancelled - Patient discharged Performed By: #### L 500.2500, L100.0100 ####[facility] [address] [place], [address] MCHC Normal 32-36 [facility] Comment on above: Result Comment: Canc elled via OM: Order cancelled - Patient discharged Performed By: #### L 500.2500, L100.0100 ####[facility] [address] [place], [address] MCV Normal 81-99 [facility] Comment on above: Result Comment: Canc elled via OM: Order cancelled - Patient discharged Performed By: #### L 500.2500, L100.0100 ####[facility] [address] [place], [address] NEUT% Normal 47-70 [facility] Comment on above: Result Comment: Canc elled via OM: Order cancelled - Patient discharged Performed By: #### L 500.2500, L100.0100 ####[facility] [address] [place], [address] PLT Normal 150-450 [facility] Comment on above: Result Comment: Canc elled via OM: Order cancelled - Patient discharged Performed By: #### L 500.2500, L100.0100 ####[facility] [address] [place], [address] RBC Normal 4.2-5.4 [facility] Comment on above: Result Comment: Canc elled via OM: Order cancelled - Patient discharged Performed By: #### L 500.2500, L100.0100 ####[facility] [address] [place], [address] RDW CV Normal 11.6-14.6 [facility] Comment on above: Result Comment: Canc elled via OM: Order cancelled - Patient discharged Performed By: #### L 500.2500, L100.0100 ####[facility] [address] [place], [address] RDW SD Normal 35.1-43.9 [facility] Comment on above: Result Comment: Canc elled via OM: Order cancelled - Patient discharged Performed By: #### L 500.2500, L100.0100 ####[facility] [address] [place], [address] WBC Normal 4.4-11.0 [facility] Comment on above: Result Comment: Canc elled via OM: Order cancelled - Patient discharged Performed By: #### L 500.2500, L100.0100 ####[facility] [address] [place], [address] Prothrombin Time w/INRon INR Normal [facility] Comment on above: Result Comment: Canc elled via OM: Order cancelled - Patient discharged Performed By: #### L 300.3900 ####[facility] [address] [place], [address] PROTIME Normal 11.7-14.9 [facility] Comment on above: Result Comment: Canc elled via OM: Order cancelled - Patient discharged Performed By: #### L 300.3900 ####[facility] [address] [place], [address] Basic Metabolic Profile (BMP )on 03-19-2024 BUN/CRE 31.9 RATIO High 10-20 [facility] Comment on above: Performed By: #### L 100.0500, L500.2500 ####[facility] [address] [place], [address] CA,Total 8.8 mg/dL Normal 8.5-10.1 [facility] Comment on above: Performed By: #### L 100.0500, L500.2500 ####[facility] [address] [place], [address] Chloride [Moles/Vol] 105 mmol/L Normal 98-107 [facility] Comment on above: Performed By: #### L 100.0500, L500.2500 ####[facility] [address] [place], [address] CO2 [Moles/Vol] 26.0 mmol/L Normal 21.0-32.0 [facility] Comment on above: Performed By: #### L 100.0500, L500.2500 ####[facility] [address] [place], [address] Creatinine [Mass/Vol] 0.69 mg/dL Normal 0.55-1.02 [facility] Comment on above: Result Comment: The validity of the calculated GFR GFRAA in patients over70 years has not been determined. Clinical correlation isessential. Performed By: #### L 100.0500, L500.2500 ####[facility] [address] [place], [address] ECRCL 47.96 ml/min Normal [facility] Comment on above: Performed By: #### L 100.0500, L500.2500 ####[facility] [address] [place], [address] EST GFR - AA 104 mL/min Normal >60 [facility] Comment on above: Result Comment: Afri can Sudanese GFR Calc Performed By: #### L 100.0500, L500.2500 ####[facility] [address] [place], [place], [address] GAP 9 Normal 5-15 [facility] Comment on above: Performed By: #### L 100.0500, L500.2500 ####[facility] [address] [place], [address] GFR/1.73 sq M.predicted among non-blacks MDRD (S/P/Bld) [Vol rate/Area] 86 mL/min/{1.73_m2} Normal >60 [facility] Comment on above: Result Comment: Non- GFR Calc Performed By: #### L 100.0500, L500.2500 ####[facility] [address] [place], [address] Glucose [Mass/Vol] 122 mg/dL High 74-106 [facility] Comment on above: Result Comment: Fast ing Glucose result from 100 to 125 mg/dLsuggests IMPAIRED HOMEOSTASIS per A.D.A. criteria. Performed By: #### L 100.0500, L500.2500 ####[facility] [address] [place], [address] Potassium [Moles/Vol] 3.3 mmol/L Low 3.5-5.1 [facility] Comment on above: Performed By: #### L 100.0500, L500.2500 ####[facility] [address] [place], [address] Sodium [Moles/Vol] 140 mmol/L Normal 136-145 [facility] Comment on above: Performed By: #### L 100.0500, L500.2500 ####[facility] [address] [place], [address] Urea nitrogen [Mass/Vol] 22 mg/dL High 7-18 [facility] Comment on above: Performed By: #### L 100.0500, L500.2500 ####[facility] [address] [place], [address] Bedside Glucoseon 03-19-2024 FINGERSTICK GLU 119 mg/dL High 74-106 [facility] Comment on above: Result Comment: LEVI GEMENT OF PATIENT CARE PER NURSING PROTOCOL Performed By: #### L 501.080 ####[facility] [address] [place], [address] FINGERSTICK GLU 149 mg/dL High 74-106 [facility] Comment on above: Result Comment: LEVI GEMENT OF PATIENT CARE PER NURSING PROTOCOL Performed By: #### L 501.080 ####[facility] [address] [place], [address] FINGERSTICK GLU 186 mg/dL High 74-106 [facility] Comment on above: Result Comment: LEVI GEMENT OF PATIENT CARE PER NURSING PROTOCOL Performed By: #### L 501.080 ####[facility] [address] [place], [address] FINGERSTICK GLU 128 mg/dL High 74-106 [facility] Comment on above: Result Comment: LEVI HYDE OF PATIENT CARE PER NURSING PROTOCOL Performed By: #### L 501.080 ####[facility] [address] [place], [address] CBC-Complete Blood Cnt No Di ffon 03-19-2024 Erythrocyte distribution width (RBC) [Ratio] 18.4 % High 11.6-14.6 [facility] Comment on above: Performed By: #### L 100.0500, L500.2500 ####[facility] [address] [place], [address] Hematocrit (Bld) [Volume fraction] 28.3 % Low 37-47 [facility] Comment on above: Performed By: #### L 100.0500, L500.2500 ####[facility] [address] [place], [address] Hemoglobin (Bld) [Mass/Vol] 9.2 g/dL Low 12.0-15.0 [facility] Comment on above: Performed By: #### L 100.0500, L500.2500 ####[facility] [address] [place], [address] MCH (RBC) [Entitic mass] 30.2 pg Normal 27.0-32.0 [facility] Comment on above: Performed By: #### L 100.0500, L500.2500 ####[facility] [address] [place], [address] MCHC (RBC) [Mass/Vol] 32.5 g/dL Normal 32-36 [facility] Comment on above: Performed By: #### L 100.0500, L500.2500 ####[facility] [address] [place], [address] MCV (RBC) [Entitic vol] 92.8 fL Normal 81-99 [facility] Comment on above: Performed By: #### L 100.0500, L500.2500 ####[facility] [address] [place], [address] Platelet mean volume (Bld) [Entitic vol] 10.1 fL Normal 6.2-12.0 [facility] Comment on above: Performed By: #### L 100.0500, L500.2500 ####[facility] [address] [place], [address] Platelets (Bld) [#/Vol] 284 10*3/uL Normal 150-450 [facility] Comment on above: Performed By: #### L 100.0500, L500.2500 ####[facility] [address] [place], [address] RBC (Bld) [#/Vol] 3.05 10*6/uL Low 4.2-5.4 [facility] Comment on above: Performed By: #### L 100.0500, L500.2500 ####[facility] [address] [place], [address] RDW SD 60.3 fl High 35.1-43.9 [facility] Comment on above: Performed By: #### L 100.0500, L500.2500 ####[facility] [address] [place], [address] WBC (Bld) [#/Vol] 6.2 10*3/uL Normal 4.4-11.0 [facility] Comment on above: Performed By: #### L 100.0500, L500.2500 ####[facility] [address] [place], [address] Prothrombin Time w/INRon INR Coag (PPP) [Relative time] 2.6 {INR} Normal [facility] Comment on above: Performed By: #### L 300.3900 ####[facility] [address] [place], [address] PT Coag (PPP) [Time] 27.8 s High 11.7-14.9 [facility] Comment on above: Performed By: #### L 300.3900 ####[facility] [address] [place], [address] BRCon 03-18-2024 RC Normal [facility] Comment on above: Result Comment: [id number] AN RC TRANSFUSED 03/18/24 1720 Performed By: #### B , [facility] ####[facility] [address] [place], [address] Bedside Glucoseon 03-18-2024 FINGERSTICK GLU 129 mg/dL High [facility]106 [facility] Comment on above: Result Comment: LEVI GEMENT OF PATIENT CARE PER NURSING PROTOCOL Performed By: #### L 501.080 ####[facility] [address] [place], [address] FINGERSTICK GLU 129 mg/dL High [facility]106 [facility] Comment on above: Result Comment: LEVI GEMENT OF PATIENT CARE PER NURSING PROTOCOL Performed By: #### L 501.080 ####[facility] [address] [place], [address] FINGERSTICK GLU 128 mg/dL High [facility]106 [facility] Comment on above: Result Comment: LEVI GEMENT OF PATIENT CARE PER NURSING PROTOCOL Performed By: #### L 501.080 ####[facility] [address] [place], [address] FINGERSTICK GLU 132 mg/dL High [facility]106 [facility] Comment on above: Result Comment: LEVI GEMENT OF PATIENT CARE PER NURSING PROTOCOL Performed By: #### L 501.080 ####[facility] [address] [place], [address] CBC W/Diff, Automatedon 11- Absolute Lymph 1.74 X10 3/uL Normal 0.83-4.51 [facility] Comment on above: Performed By: #### L 100.0100 ####[facility] [address] [place], [address] Absolute Neut 3.2 X10 3/uL Normal 2.0-7.7 [facility] Comment on above: Performed By: #### L 100.0100 ####[facility] [address] [place], [address] Basophils/100 WBC (Bld) 0.5 % Normal 0-1 [facility] Comment on above: Performed By: #### L 100.0100 ####[facility] [address] [place], [address] Eosinophils/100 WBC (Bld) 2.6 % Normal 0-5 [facility] Comment on above: Performed By: #### L 100.0100 ####[facility] [address] [place], [address] Erythrocyte distribution width (RBC) [Ratio] 17.4 % High 11.6-14.6 [facility] Comment on above: Performed By: #### L 100.0100 ####[facility] [address] [place], [address] Hematocrit (Bld) [Volume fraction] 24.9 % Low 37-47 [facility] Comment on above: Performed By: #### L 100.0100 ####[facility] [address] [place], [address] Hemoglobin (Bld) [Mass/Vol] 7.7 g/dL Low 12.0-15.0 [facility] Comment on above: Performed By: #### L 100.0100 ####[facility] [address] [place], [address] IG% 0.500 Normal 0.0-0.9 [facility] Comment on above: Result Comment: IG% - Immature Granulocytes (promyelocytes, myelocytes andmetamyelocytes) > 1% indicates that a LEFT SHIFT is Present. Performed By: #### L 100.0100 ####[facility] [address] [place], [address] Lymphocytes/100 WBC (Bld) 30.0 % Normal 19-41 [facility] Comment on above: Performed By: #### L 100.0100 ####[facility] [address] [place], [address] MCH (RBC) [Entitic mass] 30.2 pg Normal 27.0-32.0 [facility] Comment on above: Performed By: #### L 100.0100 ####[facility] [address] [place], [address] MCHC (RBC) [Mass/Vol] 30.9 g/dL Low 32-36 [facility] Comment on above: Performed By: #### L 100.0100 ####[facility] [address] [place], [address] MCV (RBC) [Entitic vol] 97.6 fL Normal 81-99 [facility] Comment on above: Performed By: #### L 100.0100 ####[facility] [address] [place], [address] Monocytes/100 WBC (Bld) 11.6 % High 0-10 [facility] Comment on above: Performed By: #### L 100.0100 ####[facility] [address] [place], [address] Neutrophils/100 WBC (Bld) 54.8 % Normal 47-70 [facility] Comment on above: Performed By: #### L 100.0100 ####[facility] [address] [place], [address] Nucleated RBC (Bld) [#/Vol] 0.9 10*3/uL Normal 0-5 [facility] Comment on above: Performed By: #### L 100.0100 ####[facility] [address] [place], [address] Platelet mean volume (Bld) [Entitic vol] 10.5 fL Normal 6.2-12.0 [facility] Comment on above: Performed By: #### L 100.0100 ####[facility] [address] [place], [address] Platelets (Bld) [#/Vol] 229 10*3/uL Normal 150-450 [facility] Comment on above: Performed By: #### L 100.0100 ####[facility] [address] [place], [address] RBC (Bld) [#/Vol] 2.55 10*6/uL Low 4.2-5.4 [facility] Comment on above: Performed By: #### L 100.0100 ####[facility] [address] [place], [address] RDW SD 59.5 fl High 35.1-43.9 [facility] Comment on above: Performed By: #### L 100.0100 ####[facility] [address] [place], [address] WBC (Bld) [#/Vol] 5.8 10*3/uL Normal 4.4-11.0 [facility] Comment on above: Performed By: #### L 100.0100 ####[facility] [address] [place], [address] Prothrombin Time w/INRon INR Coag (PPP) [Relative time] 1.9 {INR} Normal [facility] Comment on above: Performed By: #### L 300.3900 ####[facility] [address] [place], [address] PT Coag (PPP) [Time] 22.0 s High 11.7-14.9 [facility] Comment on above: Performed By: #### L 300.3900 ####[facility] [address] [place], [address] Type AND Screenon 03-18-2024 Ab SCREEN GEL Negative Normal [facility] Comment on above: Order Comment: CMV N EG? NNumber of units to transfuse: 1Reason for Ordering Blood: AcuteAre the blood/blood products to be transfused? YIs the patient having/had surgery? YWhen ReadyNY Performed By: #### B , [facility] ####[facility] [address] [place], [address] Bedside Glucoseon 03-17-2024 FINGERSTICK GLU 140 mg/dL High [address] [place] [address] Comment on above: Result Comment: LEVI GEMENT OF PATIENT CARE PER NURSING PROTOCOL Performed By: #### L 501.080 ####[facility] [address] [place], [address] FINGERSTICK GLU 108 mg/dL High [address] [place] [address] Comment on above: Result Comment: LEVI GEMENT OF PATIENT CARE PER NURSING PROTOCOL Performed By: #### L 501.080 ####[facility] [address] [place], [address] FINGERSTICK GLU 172 mg/dL High [address] [place] [address] Comment on above: Result Comment: LEVI GEMENT OF PATIENT CARE PER NURSING PROTOCOL Performed By: #### L 501.080 ####[facility] [address] [place], [address] FINGERSTICK GLU 142 mg/dL High [address] [place] [address] Comment on above: Result Comment: LEVI GEMENT OF PATIENT CARE PER NURSING PROTOCOL Performed By: #### L 501.080 ####[facility] [address] [place], [address] Partial Thromboplast Timeon 03-17-2024 aPTT Coag (Bld) [Time] 78.3 s High 24.1-36.2 [facility] Comment on above: Performed By: #### L 300.4310 ####[facility] [address] [place], [address] aPTT Coag (Bld) [Time] 85.5 s High 24.1-36.2 [facility] Comment on above: Order Comment: Comme nts: heparin drip, time sensitive Performed By: #### L 300.4310 ####[facility] [address] [place], [address] aPTT Coag (Bld) [Time] 82.6 s High 24.1-36.2 [facility] Comment on above: Order Comment: Comme nts: heparin drip, time sensitive Performed By: #### L 300.4310 ####[facility] [address] [place], [address] Prothrombin Time w/INRon INR Coag (PPP) [Relative time] 1.3 {INR} Normal [facility] Comment on above: Performed By: #### L 300.3900 ####[facility] [address] [place], [address] PT Coag (PPP) [Time] 16.2 s High 11.7-14.9 [facility] Comment on above: Performed By: #### L 300.3900 ####[facility] [address] [place], [address] Bedside Glucoseon 03-16-2024 FINGERSTICK GLU 144 mg/dL High 74-106 [facility] Comment on above: Result Comment: LEVI HYDE OF PATIENT CARE PER NURSING PROTOCOL Performed By: #### L 501.080 ####[facility] [address] [place], [address] FINGERSTICK GLU 140 mg/dL High 74-106 [facility] Comment on above: Result Comment: LEVI GEMENT OF PATIENT CARE PER NURSING PROTOCOL Performed By: #### L 501.080 ####[facility] [address] [place], [address] FINGERSTICK GLU 129 mg/dL High 74-106 [facility] Comment on above: Result Comment: LEVI GEMENT OF PATIENT CARE PER NURSING PROTOCOL Performed By: #### L 501.080 ####[facility] [address] [place], [address] FINGERSTICK GLU 131 mg/dL High 74-106 [facility] Comment on above: Result Comment: LEVI GEMENT OF PATIENT CARE PER NURSING PROTOCOL Performed By: #### L 501.080 ####[facility] [address] [place], [address] Partial Thromboplast Timeon 03-16-2024 aPTT Coag (Bld) [Time] 79.3 s High 24.1-36.2 [facility] Comment on above: Performed By: #### L 300.4310 ####[facility] [address] [place], [address] Vancomycin, Trough Levelon 05-16-2023 VANCO, TROUGH 13.5 ug/mL Normal 5.0-15.0 [facility] Comment on above: Order Comment: 1400 Result Comment: VANC OMYCIN STANDARED DRUG THERAPY TROUGH LEVEL: 5.0 - 15.0 mg/LVANCOMYCIN HIGH INTENSITY THERAPY TROUGH LEVEL: 15.0 - 20.0 mg/LHigh Intensity therapy recommended for serious lifethreatening infections include:- Kfbfbnhdkx-Irxzpwzvpayt-Tajrndqaq (Ventilator/Healtcare Associated)-SepsisPLEASE CONTACT PHARMACY SERVICES (#4458) FOR INTERPRETATIONOF RESULTS. Performed By: #### L 501.8820 ####[facility] [address] [place], [address] Basic Metabolic Profile (BMP )on 03-15-2024 BUN/CRE 20.1 RATIO High 10-20 [facility] Comment on above: Performed By: #### L 500.2500, L300.4310, L100.0100, L300.3900 ####[facility] [address] [place], [address] CA,Total 8.5 mg/dL Normal 8.5-10.1 [facility] Comment on above: Performed By: #### L 500.2500, L300.4310, L100.0100, L300.3900 ####[facility] [address] [place], [address] Chloride [Moles/Vol] 110 mmol/L High 98-107 [facility] Comment on above: Performed By: #### L 500.2500, L300.4310, L100.0100, L300.3900 ####[facility] [address] [place], [address] CO2 [Moles/Vol] 26.0 mmol/L Normal 21.0-32.0 [facility] Comment on above: Performed By: #### L 500.2500, L300.4310, L100.0100, L300.3900 ####[facility] [address] [place], [address] Creatinine [Mass/Vol] 1.00 mg/dL Normal 0.55-1.02 [facility] Comment on above: Result Comment: The validity of the calculated GFR GFRAA in patients over70 years has not been determined. Clinical correlation isessential. Performed By: #### L 500.2500, L300.4310, L100.0100, L300.3900 ####[facility] [address] [place], [address] ECRCL 37.84 ml/min Normal [facility] Comment on above: Performed By: #### L 500.2500, L300.4310, L100.0100, L300.3900 ####[facility] [address] [place], [address] EST GFR - AA 68 mL/min Normal >60 [facility] Comment on above: Result Comment: Afri can Sudanese GFR Calc Performed By: #### L 500.2500, L300.4310, L100.0100, L300.3900 ####[facility] [address] [place], [address] GAP 4 Low 5-15 [facility] Comment on above: Performed By: #### L 500.2500, L300.4310, L100.0100, L300.3900 ####[facility] [address] [place], [address] GFR/1.73 sq M.predicted among non-blacks MDRD (S/P/Bld) [Vol rate/Area] 56 mL/min/{1.73_m2} Low >60 [facility] Comment on above: Result Comment: Non- GFR Calc Performed By: #### L 500.2500, L300.4310, L100.0100, L300.3900 ####[facility] [address] [place], [address] Glucose [Mass/Vol] 134 mg/dL High 74-106 [facility] Comment on above: Result Comment: Fast ing Glucose result greater than or equal to 126 mg/dLsuggests DIABETES MELLITUS per A.D.A. criteria. Performed By: #### L 500.2500, L300.4310, L100.0100, L300.3900 ####[facility] [address] [place], [address] Potassium [Moles/Vol] 3.4 mmol/L Low 3.5-5.1 [facility] Comment on above: Performed By: #### L 500.2500, L300.4310, L100.0100, L300.3900 ####[facility] [address] [place], [address] Sodium [Moles/Vol] 140 mmol/L Normal 136-145 [facility] Comment on above: Performed By: #### L 500.2500, L300.4310, L100.0100, L300.3900 ####[facility] [address] [place], [address] Urea nitrogen [Mass/Vol] 20 mg/dL High 7-18 [facility] Comment on above: Performed By: #### L 500.2500, L300.4310, L100.0100, L300.3900 ####[facility] [address] [place], [address] Bedside Glucoseon 03-15-2024 FINGERSTICK GLU 137 mg/dL High 74-106 [facility] Comment on above: Result Comment: LEVI GEMENT OF PATIENT CARE PER NURSING PROTOCOL Performed By: #### L 501.080 ####[facility] [address] [place], [address] FINGERSTICK GLU 130 mg/dL High 74-106 [facility] Comment on above: Result Comment: LEVI GEMENT OF PATIENT CARE PER NURSING PROTOCOL Performed By: #### L 501.080 ####[facility] [address] [place], [address] FINGERSTICK GLU 116 mg/dL High 74-106 [facility] Comment on above: Result Comment: LEVI GEMENT OF PATIENT CARE PER NURSING PROTOCOL Performed By: #### L 501.080 ####[facility] [address] [place], [address] FINGERSTICK GLU 132 mg/dL High 74-106 [facility] Comment on above: Result Comment: LEVI GEMENT OF PATIENT CARE PER NURSING PROTOCOL Performed By: #### L 501.080 ####[facility] [address] [place], [address] CBC W/Diff, Automatedon 11- Absolute Lymph 1.66 X10 3/uL Normal 0.83-4.51 [facility] Comment on above: Performed By: #### L 500.2500, L300.4310, L100.0100, L300.3900 ####[facility] [address] [place], [address] Absolute Neut 5.3 X10 3/uL Normal 2.0-7.7 [facility] Comment on above: Performed By: #### L 500.2500, L300.4310, L100.0100, L300.3900 ####[facility] [address] [place], [address] Basophils/100 WBC (Bld) 0.8 % Normal 0-1 [facility] Comment on above: Performed By: #### L 500.2500, L300.4310, L100.0100, L300.3900 ####[facility] [address] [place], [address] Eosinophils/100 WBC (Bld) 1.4 % Normal 0-5 [facility] Comment on above: Performed By: #### L 500.2500, L300.4310, L100.0100, L300.3900 ####[facility] [address] [place], [address] Erythrocyte distribution width (RBC) [Ratio] 17.5 % High 11.6-14.6 [facility] Comment on above: Performed By: #### L 500.2500, L300.4310, L100.0100, L300.3900 ####[facility] [address] [place], [address] Hematocrit (Bld) [Volume fraction] 28.0 % Low 37-47 [facility] Comment on above: Performed By: #### L 500.2500, L300.4310, L100.0100, L300.3900 ####[facility] [address] [place], [address] Hemoglobin (Bld) [Mass/Vol] 9.2 g/dL Low 12.0-15.0 [facility] Comment on above: Performed By: #### L 500.2500, L300.4310, L100.0100, L300.3900 ####[facility] [address] [place], [address] IG% 0.600 Normal 0.0-0.9 [facility] Comment on above: Result Comment: IG% - Immature Granulocytes (promyelocytes, myelocytes andmetamyelocytes) > 1% indicates that a LEFT SHIFT is Present. Performed By: #### L 500.2500, L300.4310, L100.0100, L300.3900 ####[facility] [address] [place], [address] Lymphocytes/100 WBC (Bld) 21.1 % Normal 19-41 [facility] Comment on above: Performed By: #### L 500.2500, L300.4310, L100.0100, L300.3900 ####[facility] [address] [place], [address] MCH (RBC) [Entitic mass] 30.9 pg Normal 27.0-32.0 [facility] Comment on above: Performed By: #### L 500.2500, L300.4310, L100.0100, L300.3900 ####[facility] [address] [place], [address] MCHC (RBC) [Mass/Vol] 32.9 g/dL Normal 32-36 [facility] Comment on above: Performed By: #### L 500.2500, L300.4310, L100.0100, L300.3900 ####[facility] [address] [place], [address] MCV (RBC) [Entitic vol] 94.0 fL Normal 81-99 [facility] Comment on above: Performed By: #### L 500.2500, L300.4310, L100.0100, L300.3900 ####[facility] [address] [place], [address] Monocytes/100 WBC (Bld) 8.9 % Normal 0-10 [facility] Comment on above: Performed By: #### L 500.2500, L300.4310, L100.0100, L300.3900 ####[facility] [address] [place], [address] Neutrophils/100 WBC (Bld) 67.2 % Normal 47-70 [facility] Comment on above: Performed By: #### L 500.2500, L300.4310, L100.0100, L300.3900 ####[facility] [address] [place], [address] Nucleated RBC (Bld) [#/Vol] 0.3 10*3/uL Normal 0-5 [facility] Comment on above: Performed By: #### L 500.2500, L300.4310, L100.0100, L300.3900 ####[facility] [address] [place], [address] Platelet mean volume (Bld) [Entitic vol] 10.1 fL Normal 6.2-12.0 [facility] Comment on above: Performed By: #### L 500.2500, L300.4310, L100.0100, L300.3900 ####[facility] [address] [place], [address] Platelets (Bld) [#/Vol] 165 10*3/uL Normal 150-450 [facility] Comment on above: Performed By: #### L 500.2500, L300.4310, L100.0100, L300.3900 ####[facility] [address] [place], [address] RBC (Bld) [#/Vol] 2.98 10*6/uL Low 4.2-5.4 [facility] Comment on above: Performed By: #### L 500.2500, L300.4310, L100.0100, L300.3900 ####[facility] [address] [place], [address] RDW SD 59.0 fl High 35.1-43.9 [facility] Comment on above: Performed By: #### L 500.2500, L300.4310, L100.0100, L300.3900 ####[facility] [address] [place], [address] WBC (Bld) [#/Vol] 7.9 10*3/uL Normal 4.4-11.0 [facility] Comment on above: Performed By: #### L 500.2500, L300.4310, L100.0100, L300.3900 ####[facility] [address] [place], [address] Decalcification bone/plaqueo n 03-15-2024 Decalcification bone/plaque Normal [facility] Comment on above: Performed By: #### P DEC ####[facility] [address] [place], [address] Foot min 3 Viewson 4 Foot min 3 Views Normal [facility] MR/POSTOP.ANEon 03-15-2024 MR/POSTOP.ANE Normal [facility] Operative Reporton 4 Operative Report Normal [facility] Partial Thromboplast Timeon 03-15-2024 aPTT Coag (Bld) [Time] 29.4 s Normal 24.1-36.2 [facility] Comment on above: Performed By: #### L 500.2500, L300.4310, L100.0100, L300.3900 ####[facility] [address] [place], [address] Prothrombin Time w/INRon INR Coag (PPP) [Relative time] 1.1 {INR} Normal [facility] Comment on above: Performed By: #### L 500.2500, L300.4310, L100.0100, L300.3900 ####[facility] [address] [place], [address] PT Coag (PPP) [Time] 14.3 s Normal 11.7-14.9 [facility] Comment on above: Performed By: #### L 500.2500, L300.4310, L100.0100, L300.3900 ####[facility] [address] [place], [address] Bedside Glucoseon 03-14-2024 FINGERSTICK GLU 146 mg/dL High 74-106 [facility] Comment on above: Result Comment: LEVI GEMENT OF PATIENT CARE PER NURSING PROTOCOL Performed By: #### L 501.080 ####[facility] [address] [place], [address] FINGERSTICK GLU 161 mg/dL High 74-106 [facility] Comment on above: Result Comment: LEVI GEMENT OF PATIENT CARE PER NURSING PROTOCOL Performed By: #### L 501.080 ####[facility] [address] [place], [address] FINGERSTICK GLU 118 mg/dL High 74-106 [facility] Comment on above: Result Comment: LEVI GEMENT OF PATIENT CARE PER NURSING PROTOCOL Performed By: #### L 501.080 ####[facility] [address] [place], [address] FINGERSTICK GLU 115 mg/dL High 74-106 [facility] Comment on above: Result Comment: LEVI GEMENT OF PATIENT CARE PER NURSING PROTOCOL Performed By: #### L 501.080 ####[facility] [address] [place], [address] FINGERSTICK GLU 139 mg/dL High 74-106 [facility] Comment on above: Result Comment: LEVI HYDE OF PATIENT CARE PER NURSING PROTOCOL Performed By: #### L 501.080 ####[facility] [address] [place], [address] CBC W/Diff, Automatedon 11-05 04-2023 Absolute Lymph 1.65 X10 3/uL Normal 0.83-4.51 [facility] Comment on above: Performed By: #### L 100.0100 ####[facility] [address] [place], [address] Absolute Neut 6.7 X10 3/uL Normal 2.0-7.7 [facility] Comment on above: Performed By: #### L 100.0100 ####[facility] [address] [place], [address] Basophils/100 WBC (Bld) 0.4 % Normal 0-1 [facility] Comment on above: Performed By: #### L 100.0100 ####[facility] [address] [place], [address] Eosinophils/100 WBC (Bld) 0.3 % Normal 0-5 [facility] Comment on above: Performed By: #### L 100.0100 ####[facility] [address] [place], [address] Erythrocyte distribution width (RBC) [Ratio] 17.7 % High 11.6-14.6 [facility] Comment on above: Performed By: #### L 100.0100 ####[facility] [address] [place], [address] Hematocrit (Bld) [Volume fraction] 28.3 % Low 37-47 [facility] Comment on above: Performed By: #### L 100.0100 ####[facility] [address] [place], [address] Hemoglobin (Bld) [Mass/Vol] 9.4 g/dL Low 12.0-15.0 [facility] Comment on above: Performed By: #### L 100.0100 ####[facility] [address] [place], [address] IG% 0.400 Normal 0.0-0.9 [facility] Comment on above: Result Comment: IG% - Immature Granulocytes (promyelocytes, myelocytes andmetamyelocytes) > 1% indicates that a LEFT SHIFT is Present. Performed By: #### L 100.0100 ####[facility] [address] [place], [address] Lymphocytes/100 WBC (Bld) 17.7 % Low 19-41 [facility] Comment on above: Performed By: #### L 100.0100 ####[facility] [address] [place], [address] MCH (RBC) [Entitic mass] 30.6 pg Normal 27.0-32.0 [facility] Comment on above: Performed By: #### L 100.0100 ####[facility] [address] [place], [address] MCHC (RBC) [Mass/Vol] 33.2 g/dL Normal 32-36 [facility] Comment on above: Performed By: #### L 100.0100 ####[facility] [address] [place], [address] MCV (RBC) [Entitic vol] 92.2 fL Normal 81-99 [facility] Comment on above: Performed By: #### L 100.0100 ####[facility] [address] [place], [address] Monocytes/100 WBC (Bld) 9.1 % Normal 0-10 [facility] Comment on above: Performed By: #### L 100.0100 ####[facility] [address] [place], [address] Neutrophils/100 WBC (Bld) 72.1 % High 47-70 [facility] Comment on above: Performed By: #### L 100.0100 ####[facility] [address] [place], [address] Nucleated RBC (Bld) [#/Vol] 0.2 10*3/uL Normal 0-5 [facility] Comment on above: Performed By: #### L 100.0100 ####[facility] [address] [place], [address] Platelet mean volume (Bld) [Entitic vol] 9.3 fL Normal 6.2-12.0 [facility] Comment on above: Performed By: #### L 100.0100 ####[facility] [address] [place], [address] Platelets (Bld) [#/Vol] 150 10*3/uL Normal 150-450 [facility] Comment on above: Performed By: #### L 100.0100 ####[facility] [address] [place], [address] RBC (Bld) [#/Vol] 3.07 10*6/uL Low 4.2-5.4 [facility] Comment on above: Performed By: #### L 100.0100 ####[facility] [address] [place], [address] RDW SD 58.8 fl High 35.1-43.9 [facility] Comment on above: Performed By: #### L 100.0100 ####[facility] [address] [place], [address] WBC (Bld) [#/Vol] 9.3 10*3/uL Normal 4.4-11.0 [facility] Comment on above: Performed By: #### L 100.0100 ####[facility] [address] [place], [address] Absolute Lymph 1.92 X10 3/uL Normal 0.83-4.51 [facility] Comment on above: Performed By: #### L 100.0100 ####[facility] [address] [place], [address] Absolute Neut 6.5 X10 3/uL Normal 2.0-7.7 [facility] Comment on above: Performed By: #### L 100.0100 ####[facility] [address] [place], [address] Basophils/100 WBC (Bld) 0.3 % Normal 0-1 [facility] Comment on above: Performed By: #### L 100.0100 ####[facility] [address] [place], [address] Eosinophils/100 WBC (Bld) 0.3 % Normal 0-5 [facility] Comment on above: Performed By: #### L 100.0100 ####[facility] [address] [place], [address] Erythrocyte distribution width (RBC) [Ratio] 17.7 % High 11.6-14.6 [facility] Comment on above: Performed By: #### L 100.0100 ####[facility] [address] [place], [address] Hematocrit (Bld) [Volume fraction] 30.2 % Low 37-47 [facility] Comment on above: Performed By: #### L 100.0100 ####[facility] [address] [place], [address] Hemoglobin (Bld) [Mass/Vol] 9.6 g/dL Low 12.0-15.0 [facility] Comment on above: Performed By: #### L 100.0100 ####[facility] [address] [place], [address] IG% 0.300 Normal 0.0-0.9 [facility] Comment on above: Result Comment: IG% - Immature Granulocytes (promyelocytes, myelocytes andmetamyelocytes) > 1% indicates that a LEFT SHIFT is Present. Performed By: #### L 100.0100 ####[facility] [address] [place], [address] Lymphocytes/100 WBC (Bld) 20.4 % Normal 19-41 [facility] Comment on above: Performed By: #### L 100.0100 ####[facility] [address] [place], [address] MCH (RBC) [Entitic mass] 30.2 pg Normal 27.0-32.0 [facility] Comment on above: Performed By: #### L 100.0100 ####[facility] [address] [place], [address] MCHC (RBC) [Mass/Vol] 31.8 g/dL Low 32-36 [facility] Comment on above: Performed By: #### L 100.0100 ####[facility] [address] [place], [address] MCV (RBC) [Entitic vol] 95.0 fL Normal 81-99 [facility] Comment on above: Performed By: #### L 100.0100 ####[facility] [address] [place], [address] Monocytes/100 WBC (Bld) 9.8 % Normal 0-10 [facility] Comment on above: Performed By: #### L 100.0100 ####[facility] [address] [place], [address] Neutrophils/100 WBC (Bld) 68.9 % Normal 47-70 [facility] Comment on above: Performed By: #### L 100.0100 ####[facility] [address] [place], [address] Nucleated RBC (Bld) [#/Vol] 0 10*3/uL Normal 0-5 [facility] Comment on above: Performed By: #### L 100.0100 ####[facility] [address] [place], [address] Platelet mean volume (Bld) [Entitic vol] 10.2 fL Normal 6.2-12.0 [facility] Comment on above: Performed By: #### L 100.0100 ####[facility] [address] [place], [address] Platelets (Bld) [#/Vol] 159 10*3/uL Normal 150-450 [facility] Comment on above: Performed By: #### L 100.0100 ####[facility] [address] [place], [address] RBC (Bld) [#/Vol] 3.18 10*6/uL Low 4.2-5.4 [facility] Comment on above: Performed By: #### L 100.0100 ####[facility] [address] [place], [address] RDW SD 60.9 fl High 35.1-43.9 [facility] Comment on above: Performed By: #### L 100.0100 ####[facility] [address] [place], [address] WBC (Bld) [#/Vol] 9.4 10*3/uL Normal 4.4-11.0 [facility] Comment on above: Performed By: #### L 100.0100 ####[facility] [address] [place], [address] HH, Hemoglobin AND Hematocri ton 03-14-2024 Hematocrit (Bld) [Volume fraction] 28.1 % Low 37-47 [facility] Comment on above: Performed By: #### L 100.0600 ####[facility] [address] [place], [address] Hemoglobin (Bld) [Mass/Vol] 9.4 g/dL Low 12.0-15.0 [facility] Comment on above: Performed By: #### L 100.0600 ####[facility] [address] [place], [address] Hemoglobinon 03-14-2024 Hemoglobin (Bld) [Mass/Vol] 9.1 g/dL Low 12.0-15.0 [facility] Comment on above: Performed By: #### L 100.1300 ####[facility] [address] [place], [address] Partial Thromboplast Timeon 03-14-2024 aPTT Coag (Bld) [Time] 30.0 s Normal 24.1-36.2 [facility] Comment on above: Performed By: #### L 300.4310 ####[facility] [address] [place], [address] aPTT Coag (Bld) [Time] 27.3 s Normal 24.1-36.2 [facility] Comment on above: Performed By: #### L 300.3900, L300.4310 ####[facility] [address] [place], [address] Prothrombin Time w/INRon INR Coag (PPP) [Relative time] 1.1 {INR} Normal [facility] Comment on above: Performed By: #### L 300.3900, L300.4310 ####[facility] [address] [place], [address] PT Coag (PPP) [Time] 14.6 s Normal 11.7-14.9 [facility] Comment on above: Performed By: #### L 300.3900, L300.4310 ####[facility] [address] [place], [address] Serum Creatinine AND GFRon 1 05-14-2023 Creatinine [Mass/Vol] 1.20 mg/dL High 0.55-1.02 [facility] Comment on above: Result Comment: The validity of the calculated GFR GFRAA in patients over70 years has not been determined. Clinical correlation isessential. Performed By: #### L 501.1105 ####[facility] [address] [place], [address] ECRCL 31.54 ml/min Normal [facility] Comment on above: Performed By: #### L 501.1105 ####[facility] [address] [place], [address] EST GFR - AA 55 mL/min Low >60 [facility] Comment on above: Result Comment: Afri can Sudanese GFR Calc Performed By: #### L 501.1105 ####[facility] [address] [place], [address] GFR/1.73 sq M.predicted among non-blacks MDRD (S/P/Bld) [Vol rate/Area] 45 mL/min/{1.73_m2} Low >60 [facility] Comment on above: Result Comment: Non- GFR Calc Performed By: #### L 501.1105 ####[facility] [address] [place], [address] Vancomycin, Random Levelon 1 05-14-2023 VANCO, RANDOM 16.6 ug/mL High 0.0-15.0 [facility] Comment on above: Result Comment: VANC OMYCIN STANDARD DRUG THERAPY: CRITICAL VALUE IS > 15.0 mg/LVANCOMYCIN HIGH INTENSITY THERAPY: CRITICAL VALUE IS > 20.0 mg/LPLEASE CONTACT PHARMACY SERVICES (#8199) FOR INTERPRETATIONOF RESULTS. THIS RESULT DOES NOT REPRESENT A PEAK OR TROUGHLEVEL FOR THIS DRUG. Performed By: #### L 501.8850 ####[facility] [address] [place], [address] Vancomycin, Trough Levelon 1 05-14-2023 VANCO, TROUGH 23.6 ug/mL High 5.0-15.0 [facility] Comment on above: Order Comment: Comme nts: Trough to be drawn 30 mins prior to scheduled [id number] Result Comment: VANC OMYCIN STANDARED DRUG THERAPY TROUGH LEVEL: 5.0 - 15.0 mg/LVANCOMYCIN HIGH INTENSITY THERAPY TROUGH LEVEL: 15.0 - 20.0 mg/LHigh Intensity therapy recommended for serious lifethreatening infections include:- Ejpafdwoem-Mmszyivfavew-Aylnrumri (Ventilator/Healtcare Associated)-SepsisPLEASE CONTACT PHARMACY SERVICES (#8348) FOR INTERPRETATIONOF RESULTS. Performed By: #### L 501.8820 ####[facility] [address] [place], [address] 12 Lead EKGon 03-13-2024 12 Lead EKG Normal [facility] Basic Metabolic Profile (BMP )on 03-13-2024 BUN/CRE 14.0 RATIO Normal 10-20 [facility] Comment on above: Performed By: #### L 100.0100, L500.2500 ####[facility] [address] [place], [address] CA,Total 8.9 mg/dL Normal 8.5-10.1 [facility] Comment on above: Performed By: #### L 100.0100, L500.2500 ####[facility] [address] [place], [address] Chloride [Moles/Vol] 112 mmol/L High 98-107 [facility] Comment on above: Performed By: #### L 100.0100, L500.2500 ####[facility] [address] [place], [address] CO2 [Moles/Vol] 19.0 mmol/L Low 21.0-32.0 [facility] Comment on above: Performed By: #### L 100.0100, L500.2500 ####[facility] [address] [place], [address] Creatinine [Mass/Vol] 1.36 mg/dL High 0.55-1.02 [facility] Comment on above: Result Comment: The validity of the calculated GFR GFRAA in patients over70 years has not been determined. Clinical correlation isessential. Performed By: #### L 100.0100, L500.2500 ####[facility] [address] [place], [address] ECRCL 28.89 ml/min Normal [facility] Comment on above: Performed By: #### L 100.0100, L500.2500 ####[facility] [address] [place], [address] EST GFR - AA 48 mL/min Low >60 [facility] Comment on above: Result Comment: Afri can Sudanese GFR Calc Performed By: #### L 100.0100, L500.2500 ####[facility] [address] [place], [address] GAP 10 Normal 5-15 [facility] Comment on above: Performed By: #### L 100.0100, L500.2500 ####[facility] [address] [place], [address] GFR/1.73 sq M.predicted among non-blacks MDRD (S/P/Bld) [Vol rate/Area] 39 mL/min/{1.73_m2} Low >60 [facility] Comment on above: Result Comment: Non- GFR Calc Performed By: #### L 100.0100, L500.2500 ####[facility] [address] [place], [address] Glucose [Mass/Vol] 186 mg/dL High 74-106 [facility] Comment on above: Result Comment: Fast ing Glucose result greater than or equal to 126 mg/dLsuggests DIABETES MELLITUS per A.D.A. criteria. Performed By: #### L 100.0100, L500.2500 ####[facility] [address] [place], [address] Potassium [Moles/Vol] 3.8 mmol/L Normal 3.5-5.1 [facility] Comment on above: Performed By: #### L 100.0100, L500.2500 ####[facility] [address] [place], [address] Sodium [Moles/Vol] 141 mmol/L Normal 136-145 [facility] Comment on above: Performed By: #### L 100.0100, L500.2500 ####[facility] [address] [place], [address] Urea nitrogen [Mass/Vol] 19 mg/dL High 7-18 [facility] Comment on above: Performed By: #### L 100.0100, L500.2500 ####[facility] [address] [place], [address] Bedside Glucoseon 03-13-2024 FINGERSTICK GLU 189 mg/dL High 74-106 [facility] Comment on above: Result Comment: LEVI GEMENT OF PATIENT CARE PER NURSING PROTOCOL Performed By: #### L 501.080 ####[facility] [address] [place], [address] FINGERSTICK GLU 179 mg/dL High [address] Comment on above: Result Comment: LEVI GEMENT OF PATIENT CARE PER NURSING PROTOCOL Performed By: #### L 501.080 ####[facility] [address] [place], [address] FINGERSTICK GLU 155 mg/dL High 74-106 [facility] Comment on above: Result Comment: LEVI GEMENT OF PATIENT CARE PER NURSING PROTOCOL Performed By: #### L 501.080 ####[facility] [address] [place], [address] CBC W/Diff, Automatedon 03-02 Absolute Lymph 1.20 X10 3/uL Normal 0.83-4.51 [facility] Comment on above: Performed By: #### L 100.0100, L500.2500 ####[facility] [address] [place], [address] Absolute Neut 10.8 X10 3/uL High 2.0-7.7 [facility] Comment on above: Performed By: #### L 100.0100, L500.2500 ####[facility] [address] [place], [address] Basophils/100 WBC (Bld) 0.2 % Normal 0-1 [facility] Comment on above: Performed By: #### L 100.0100, L500.2500 ####[facility] [address] [place], [address] Eosinophils/100 WBC (Bld) 0.0 % Normal 0-5 [facility] Comment on above: Performed By: #### L 100.0100, L500.2500 ####[facility] [address] [place], [address] Erythrocyte distribution width (RBC) [Ratio] 17.8 % High 11.6-14.6 [facility] Comment on above: Performed By: #### L 100.0100, L500.2500 ####[facility] [address] [place], [address] Hematocrit (Bld) [Volume fraction] 29.8 % Low 37-47 [facility] Comment on above: Performed By: #### L 100.0100, L500.2500 ####[facility] [address] [place], [address] Hemoglobin (Bld) [Mass/Vol] 9.8 g/dL Low 12.0-15.0 [facility] Comment on above: Performed By: #### L 100.0100, L500.2500 ####[facility] [address] [place], [address] IG% 0.700 Normal 0.0-0.9 [facility] Comment on above: Result Comment: IG% - Immature Granulocytes (promyelocytes, myelocytes andmetamyelocytes) > 1% indicates that a LEFT SHIFT is Present. Performed By: #### L 100.0100, L500.2500 ####[facility] [address] [place], [address] Lymphocytes/100 WBC (Bld) 9.4 % Low 19-41 [facility] Comment on above: Performed By: #### L 100.0100, L500.2500 ####[facility] [address] [place], [address] MCH (RBC) [Entitic mass] 31.0 pg Normal 27.0-32.0 [facility] Comment on above: Performed By: #### L 100.0100, L500.2500 ####[facility] [address] [place], [address] MCHC (RBC) [Mass/Vol] 32.9 g/dL Normal 32-36 [facility] Comment on above: Performed By: #### L 100.0100, L500.2500 ####[facility] [address] [place], [address] MCV (RBC) [Entitic vol] 94.3 fL Normal 81-99 [facility] Comment on above: Performed By: #### L 100.0100, L500.2500 ####[facility] [address] [place], [address] Monocytes/100 WBC (Bld) 5.3 % Normal 0-10 [facility] Comment on above: Performed By: #### L 100.0100, L500.2500 ####[facility] [address] [place], [address] Neutrophils/100 WBC (Bld) 84.4 % High 47-70 [facility] Comment on above: Performed By: #### L 100.0100, L500.2500 ####[facility] [address] [place], [address] Nucleated RBC (Bld) [#/Vol] 0.2 10*3/uL Normal 0-5 [facility] Comment on above: Performed By: #### L 100.0100, L500.2500 ####[facility] [address] [place], [address] Platelet mean volume (Bld) [Entitic vol] 9.5 fL Normal 6.2-12.0 [facility] Comment on above: Performed By: #### L 100.0100, L500.2500 ####[facility] [address] [place], [address] Platelets (Bld) [#/Vol] 231 10*3/uL Normal 150-450 [facility] Comment on above: Performed By: #### L 100.0100, L500.2500 ####[facility] [address] [place], [address] RBC (Bld) [#/Vol] 3.16 10*6/uL Low 4.2-5.4 [facility] Comment on above: Performed By: #### L 100.0100, L500.2500 ####[facility] [address] [place], [address] RDW SD 61.0 fl High 35.1-43.9 [facility] Comment on above: Performed By: #### L 100.0100, L500.2500 ####[facility] [address] [place], [address] WBC (Bld) [#/Vol] 12.8 10*3/uL High 4.4-11.0 [facility] Comment on above: Performed By: #### L 100.0100, L500.2500 ####[facility] [address] [place], [address] Culture, Blood (WB)on 2023 CUB Blood cultures x2, from two different sites No growth in 5 days. Normal [facility] Comment on above: Performed By: #### M 200.1000 ####[facility] [address] [place], [address] Hemoglobinon 03-13-2024 Hemoglobin (Bld) [Mass/Vol] 7.5 g/dL Low 12.0-15.0 [facility] Comment on above: Performed By: #### L 100.1300 ####[facility] [address] [place], [address] Partial Thromboplast Timeon 03-13-2024 aPTT Coag (Bld) [Time] 39.8 s High 24.1-36.2 [facility] Comment on above: Performed By: #### L 300.4310 ####[facility] [address] [place], [address] aPTT Coag (Bld) [Time] 26.9 s Normal 24.1-36.2 [facility] Comment on above: Performed By: #### L 300.4310 ####[facility] [address] [place], [address] Prothrombin Time w/INRon INR Coag (PPP) [Relative time] 1.2 {INR} Normal [facility] Comment on above: Performed By: #### L 300.3900 ####[facility] [address] [place], [address] PT Coag (PPP) [Time] 15.2 s High 11.7-14.9 [facility] Comment on above: Performed By: #### L 300.3900 ####[facility] [address] [place], [address] ACT Activated Clotting Timeo n 03-12-2024 ACTk CLOT TIME 281 sec High 74-137 [facility] Comment on above: Performed By: #### L 9100.0100 ####[facility] [address] [place], [address] BRCon 03-12-2024 RC Normal [facility] Comment on above: Result Comment: [id number] AP RC TRANSFUSED 03/13/24 [id number] AP RC TRANSFUSED 03/13/242011 Performed By: #### B RC ####[facility] [address] [place], [address] Result Comment: [id number] AP RC NOT [id number] AP RC TRANSFUSED 03/12/24 2311 Performed By: #### B RC, BTS ####[facility] [address] [place], [address] Basic Metabolic Profile (BMP )on 03-12-2024 BUN/CRE 10.7 RATIO Normal 10-20 [facility] Comment on above: Performed By: #### L 500.2500, L100.0100 ####[facility] [address] [place], [address] CA,Total 9.5 mg/dL Normal 8.5-10.1 [facility] Comment on above: Performed By: #### L 500.2500, L100.0100 ####[facility] [address] [place], [address] Chloride [Moles/Vol] 108 mmol/L High 98-107 [facility] Comment on above: Performed By: #### L 500.2500, L100.0100 ####[facility] [address] [place], [address] CO2 [Moles/Vol] 19.0 mmol/L Low 21.0-32.0 [facility] Comment on above: Performed By: #### L 500.2500, L100.0100 ####[facility] [address] [place], [address] Creatinine [Mass/Vol] 1.12 mg/dL High 0.55-1.02 [facility] Comment on above: Result Comment: The validity of the calculated GFR GFRAA in patients over70 years has not been determined. Clinical correlation isessential. Performed By: #### L 500.2500, L100.0100 ####[facility] [address] [place], [address] ECRCL 35.09 ml/min Normal [facility] Comment on above: Performed By: #### L 500.2500, L100.0100 ####[facility] [address] [place], [address] EST GFR - AA 60 mL/min Normal >60 [facility] Comment on above: Result Comment: Afri can Sudanese GFR Calc Performed By: #### L 500.2500, L100.0100 ####[facility] [address] [place], [address] GAP 11 Normal 5-15 [facility] Comment on above: Performed By: #### L 500.2500, L100.0100 ####[facility] [address] [place], [address] GFR/1.73 sq M.predicted among non-blacks MDRD (S/P/Bld) [Vol rate/Area] 49 mL/min/{1.73_m2} Low >60 [facility] Comment on above: Result Comment: Non- GFR Calc Performed By: #### L 500.2500, L100.0100 ####[facility] [address] [place], [address] Glucose [Mass/Vol] 162 mg/dL High 74-106 [facility] Comment on above: Result Comment: Fast ing Glucose result greater than or equal to 126 mg/dLsuggests DIABETES MELLITUS per A.D.A. criteria. Performed By: #### L 500.2500, L100.0100 ####[facility] [address] [place], [address] Potassium [Moles/Vol] 3.5 mmol/L Normal 3.5-5.1 [facility] Comment on above: Result Comment: Slig ht Hemolysis, Result may be falsely increased. Performed By: #### L 500.2500, L100.0100 ####[facility] [address] [place], [address] Sodium [Moles/Vol] 138 mmol/L Normal 136-145 [facility] Comment on above: Performed By: #### L 500.2500, L100.0100 ####[facility] [address] [place], [address] Urea nitrogen [Mass/Vol] 12 mg/dL Normal 7-18 [facility] Comment on above: Performed By: #### L 500.2500, L100.0100 ####[facility] [address] [place], [address] Bedside Glucoseon 03-12-2024 FINGERSTICK GLU 224 mg/dL High 74-106 [facility] Comment on above: Result Comment: LEVI GEMENT OF PATIENT CARE PER NURSING PROTOCOL Performed By: #### L 501.080 ####[facility] [address] [place], [address] FINGERSTICK GLU 197 mg/dL High 74-106 [facility] Comment on above: Result Comment: LEVI GEMENT OF PATIENT CARE PER NURSING PROTOCOL Performed By: #### L 501.080 ####[facility] [address] [place], [address] FINGERSTICK GLU 144 mg/dL High 74-106 [facility] Comment on above: Result Comment: LEVI HYDE OF PATIENT CARE PER NURSING PROTOCOL Performed By: #### L 501.080 ####[facility] [address] [place], [address] CBC W/Diff, Automatedon 11- Absolute Lymph 3.19 X10 3/uL Normal 0.83-4.51 [facility] Comment on above: Performed By: #### L 100.0100 ####[facility] [address] [place], [address] Absolute Neut 11.4 X10 3/uL High 2.0-7.7 [facility] Comment on above: Performed By: #### L 100.0100 ####[facility] [address] [place], [address] Basophils/100 WBC (Bld) 0.5 % Normal 0-1 [facility] Comment on above: Performed By: #### L 100.0100 ####[facility] [address] [place], [address] Eosinophils/100 WBC (Bld) 0.3 % Normal 0-5 [facility] Comment on above: Performed By: #### L 100.0100 ####[facility] [address] [place], [address] Erythrocyte distribution width (RBC) [Ratio] 15.9 % High 11.6-14.6 [facility] Comment on above: Performed By: #### L 100.0100 ####[facility] [address] [place], [address] Hematocrit (Bld) [Volume fraction] 29.4 % Low 37-47 [facility] Comment on above: Performed By: #### L 100.0100 ####[facility] [address] [place], [address] Hemoglobin (Bld) [Mass/Vol] 9.4 g/dL Low 12.0-15.0 [facility] Comment on above: Performed By: #### L 100.0100 ####[facility] [address] [place], [address] IG% 0.900 Normal 0.0-0.9 [facility] Comment on above: Result Comment: IG% - Immature Granulocytes (promyelocytes, myelocytes andmetamyelocytes) > 1% indicates that a LEFT SHIFT is Present. Performed By: #### L 100.0100 ####[facility] [address] [place], [address] Lymphocytes/100 WBC (Bld) 20.9 % Normal 19-41 [facility] Comment on above: Performed By: #### L 100.0100 ####[facility] [address] [place], [address] MCH (RBC) [Entitic mass] 31.8 pg Normal 27.0-32.0 [facility] Comment on above: Performed By: #### L 100.0100 ####[facility] [address] [place], [address] MCHC (RBC) [Mass/Vol] 32.0 g/dL Normal 32-36 [facility] Comment on above: Performed By: #### L 100.0100 ####[facility] [address] [place], [address] MCV (RBC) [Entitic vol] 99.3 fL High 81-99 [facility] Comment on above: Performed By: #### L 100.0100 ####[facility] [address] [place], [address] Monocytes/100 WBC (Bld) 2.5 % Normal 0-10 [facility] Comment on above: Performed By: #### L 100.0100 ####[facility] [address] [place], [address] Neutrophils/100 WBC (Bld) 74.9 % High 47-70 [facility] Comment on above: Performed By: #### L 100.0100 ####[facility] [address] [place], [address] Nucleated RBC (Bld) [#/Vol] 0.1 10*3/uL Normal 0-5 [facility] Comment on above: Performed By: #### L 100.0100 ####[facility] [address] [place], [address] Platelet mean volume (Bld) [Entitic vol] 9.7 fL Normal 6.2-12.0 [facility] Comment on above: Performed By: #### L 100.0100 ####[facility] [address] [place], [address] Platelets (Bld) [#/Vol] 288 10*3/uL Normal 150-450 [facility] Comment on above: Performed By: #### L 100.0100 ####[facility] [address] [place], [address] RBC (Bld) [#/Vol] 2.96 10*6/uL Low 4.2-5.4 [facility] Comment on above: Performed By: #### L 100.0100 ####[facility] [address] [place], [address] RDW SD 58.4 fl High 35.1-43.9 [facility] Comment on above: Performed By: #### L 100.0100 ####[facility] [address] [place], [address] WBC (Bld) [#/Vol] 15.2 10*3/uL High 4.4-11.0 [facility] Comment on above: Performed By: #### L 100.0100 ####[facility] [address] [place], [address] Absolute Lymph 1.83 X10 3/uL Normal 0.83-4.51 [facility] Comment on above: Performed By: #### L 500.2500, L100.0100 ####[facility] [address] [place], [address] Absolute Neut 2.9 X10 3/uL Normal 2.0-7.7 [facility] Comment on above: Performed By: #### L 500.2500, L100.0100 ####[facility] [address] [place], [address] Basophils/100 WBC (Bld) 0.9 % Normal 0-1 [facility] Comment on above: Performed By: #### L 500.2500, L100.0100 ####[facility] [address] [place], [address] Eosinophils/100 WBC (Bld) 1.9 % Normal 0-5 [facility] Comment on above: Performed By: #### L 500.2500, L100.0100 ####[facility] [address] [place], [address] Erythrocyte distribution width (RBC) [Ratio] 15.5 % High 11.6-14.6 [facility] Comment on above: Performed By: #### L 500.2500, L100.0100 ####[facility] [address] [place], [address] Hematocrit (Bld) [Volume fraction] 37.5 % Normal 37-47 [facility] Comment on above: Performed By: #### L 500.2500, L100.0100 ####[facility] [address] [place], [address] Hemoglobin (Bld) [Mass/Vol] 12.7 g/dL Normal 12.0-15.0 [facility] Comment on above: Performed By: #### L 500.2500, L100.0100 ####[facility] [address] [place], [address] IG% 0.600 Normal 0.0-0.9 [facility] Comment on above: Result Comment: IG% - Immature Granulocytes (promyelocytes, myelocytes andmetamyelocytes) > 1% indicates that a LEFT SHIFT is Present. Performed By: #### L 500.2500, L100.0100 ####[facility] [address] [place], [address] Lymphocytes/100 WBC (Bld) 33.9 % Normal 19-41 [facility] Comment on above: Performed By: #### L 500.2500, L100.0100 ####[facility] [address] [place], [address] MCH (RBC) [Entitic mass] 32.0 pg Normal 27.0-32.0 [facility] Comment on above: Performed By: #### L 500.2500, L100.0100 ####[facility] [address] [place], [address] MCHC (RBC) [Mass/Vol] 33.9 g/dL Normal 32-36 [facility] Comment on above: Performed By: #### L 500.2500, L100.0100 ####[facility] [address] [place], [address] MCV (RBC) [Entitic vol] 94.5 fL Normal 81-99 [facility] Comment on above: Performed By: #### L 500.2500, L100.0100 ####[facility] [address] [place], [address] Monocytes/100 WBC (Bld) 8.3 % Normal 0-10 [facility] Comment on above: Performed By: #### L 500.2500, L100.0100 ####[facility] [address] [place], [address] Neutrophils/100 WBC (Bld) 54.4 % Normal 47-70 [facility] Comment on above: Performed By: #### L 500.2500, L100.0100 ####[facility] [address] [place], [address] Nucleated RBC (Bld) [#/Vol] 0.4 10*3/uL Normal 0-5 [facility] Comment on above: Performed By: #### L 500.2500, L100.0100 ####[facility] [address] [place], [address] Platelet mean volume (Bld) [Entitic vol] 9.4 fL Normal 6.2-12.0 [facility] Comment on above: Performed By: #### L 500.2500, L100.0100 ####[facility] [address] [place], [address] Platelets (Bld) [#/Vol] 269 10*3/uL Normal 150-450 [facility] Comment on above: Performed By: #### L 500.2500, L100.0100 ####[facility] [address] [place], [address] RBC (Bld) [#/Vol] 3.97 10*6/uL Low 4.2-5.4 [facility] Comment on above: Performed By: #### L 500.2500, L100.0100 ####[facility] [address] [place], [address] RDW SD 53.3 fl High 35.1-43.9 [facility] Comment on above: Performed By: #### L 500.2500, L100.0100 ####[facility] [address] [place], [address] WBC (Bld) [#/Vol] 5.4 10*3/uL Normal 4.4-11.0 [facility] Comment on above: Performed By: #### L 500.2500, L100.0100 ####[facility] [address] [place], [address] MR/POSTOP.ANEon 03-12-2024 MR/POSTOP.ANE Normal [facility] MR/POSTOP.ANE Normal [facility] MR/[id number] 03-12-2024 MR/POSTOPAN2 Normal [facility] MR/POSTOPAN2 Normal [facility] Operative Reporton Operative Report Normal [facility] Partial Thromboplast Timeon 03-12-2024 aPTT Coag (Bld) [Time] 57.4 s High 24.1-36.2 [facility] Comment on above: Performed By: #### L 300.4310, L300.3900 ####[facility] [address] [place], [address] Prothrombin Time w/INRon INR Coag (PPP) [Relative time] 1.1 {INR} Normal [facility] Comment on above: Performed By: #### L 300.4310, L300.3900 ####[facility] [address] [place], [address] PT Coag (PPP) [Time] 14.3 s Normal 11.7-14.9 [facility] Comment on above: Performed By: #### L 300.4310, L300.3900 ####[facility] [address] [place], [address] Type AND Screenon 03-12-2024 ABO and Rh group Nom (Bld) Blood group A Rh(D) positive Normal [facility] Comment on above: Order Comment: CMV N EG? NComments: vascular surgery right legIs the EBL >/= 1000ml in adults or >/= 12ml/kg in children?YReason for Ordering Blood: AcuteAre the blood/blood products to be transfused? NIs the patient having/had surgery? YTypjoann [id number] Performed By: #### B KENDRICK ANN ####[facility] [address] [place], [address] Vancomycin, Trough Levelon 1 05-12-2023 VANCO, TROUGH 17.0 ug/mL High 5.0-15.0 [facility] Comment on above: Order Comment: Comme nts: Trough to be drawn 30 mins prior to scheduled [id number] Result Comment: VANC OMYCIN STANDARED DRUG THERAPY TROUGH LEVEL: 5.0 - 15.0 mg/LVANCOMYCIN HIGH INTENSITY THERAPY TROUGH LEVEL: 15.0 - 20.0 mg/LHigh Intensity therapy recommended for serious lifethreatening infections include:- Gosurrrcfs-Xmzmdhcuxkja-Ejmvpaelo (Ventilator/Healtcare Associated)-SepsisPLEASE CONTACT PHARMACY SERVICES (#4203) FOR INTERPRETATIONOF RESULTS. Performed By: #### L 501.8820 ####[facility] [address] [facility] [address] Bedside Glucoseon 03-11-2024 FINGERSTICK GLU 139 mg/dL High 74-106 [facility] Comment on above: Result Comment: LEVI GEMENT OF PATIENT CARE PER NURSING PROTOCOL Performed By: #### L 501.080 ####[facility] [address] [facility] [address] FINGERSTICK GLU 122 mg/dL High 74-106 [facility] Comment on above: Result Comment: LEVI GEMENT OF PATIENT CARE PER NURSING PROTOCOL Performed By: #### L 501.080 ####[facility] [address] [facility] [address] FINGERSTICK GLU 145 mg/dL High 74-106 [facility] Comment on above: Result Comment: LEVI GEMENT OF PATIENT CARE PER NURSING PROTOCOL Performed By: #### L 501.080 ####[facility] [address] [place], [address] FINGERSTICK GLU 132 mg/dL High 74-106 [facility] Comment on above: Result Comment: LEVI HYDE OF PATIENT CARE PER NURSING PROTOCOL Performed By: #### L 501.080 ####[facility] [address] [place], [address] Partial Thromboplast Timeon 03-11-2024 aPTT Coag (Bld) [Time] 68.3 s High 24.1-36.2 [facility] Comment on above: Performed By: #### L 300.4310 ####[facility] [address] [place], [address] aPTT Coag (Bld) [Time] 72.4 s High 24.1-36.2 [facility] Comment on above: Performed By: #### L 300.4310 ####[facility] [address] [place], [address] Prothrombin Time w/INRon INR Coag (PPP) [Relative time] 1.1 {INR} Normal [facility] Comment on above: Performed By: #### L 300.3900 ####[facility] [address] [place], [address] PT Coag (PPP) [Time] 14.3 s Normal 11.7-14.9 [facility] Comment on above: Performed By: #### L 300.3900 ####[facility] [address] [place], [address] Basic Metabolic Profile (BMP )on 03-10-2024 BUN/CRE 14.8 RATIO Normal 10-20 [facility] Comment on above: Performed By: #### L 100.0100, L300.3900, L500.2500 ####[facility] [address] [place], [address] CA,Total 9.1 mg/dL Normal 8.5-10.1 [facility] Comment on above: Performed By: #### L 100.0100, L300.3900, L500.2500 ####[facility] [address] [place], [address] Chloride [Moles/Vol] 111 mmol/L High 98-107 [facility] Comment on above: Performed By: #### L 100.0100, L300.3900, L500.2500 ####[facility] [address] [place], [address] CO2 [Moles/Vol] 21.0 mmol/L Normal 21.0-32.0 [facility] Comment on above: Performed By: #### L 100.0100, L300.3900, L500.2500 ####[facility] [address] [place], [address] Creatinine [Mass/Vol] 1.08 mg/dL High 0.55-1.02 [facility] Comment on above: Result Comment: The validity of the calculated GFR GFRAA in patients over70 years has not been determined. Clinical correlation isessential. Performed By: #### L 100.0100, L300.3900, L500.2500 ####[facility] [address] [place], [address] ECRCL 36.34 ml/min Normal [facility] Comment on above: Performed By: #### L 100.0100, L300.3900, L500.2500 ####[facility] [address] [place], [address] EST GFR - AA 62 mL/min Normal >60 [facility] Comment on above: Result Comment: Afri can Sudanese GFR Calc Performed By: #### L 100.0100, L300.3900, L500.2500 ####[facility] [address] [place], [address] GAP 7 Normal 5-15 [facility] Comment on above: Performed By: #### L 100.0100, L300.3900, L500.2500 ####[facility] [address] [place], [address] GFR/1.73 sq M.predicted among non-blacks MDRD (S/P/Bld) [Vol rate/Area] 51 mL/min/{1.73_m2} Low >60 [facility] Comment on above: Result Comment: Non- GFR Calc Performed By: #### L 100.0100, L300.3900, L500.2500 ####[facility] [address] [place], [address] Glucose [Mass/Vol] 132 mg/dL High 74-106 [facility] Comment on above: Result Comment: Fast ing Glucose result greater than or equal to 126 mg/dLsuggests DIABETES MELLITUS per A.D.A. criteria. Performed By: #### L 100.0100, L300.3900, L500.2500 ####[facility] [address] [place], [address] Potassium [Moles/Vol] 3.7 mmol/L Normal 3.5-5.1 [facility] Comment on above: Performed By: #### L 100.0100, L300.3900, L500.2500 ####[facility] [address] [place], [address] Sodium [Moles/Vol] 139 mmol/L Normal 136-145 [facility] Comment on above: Performed By: #### L 100.0100, L300.3900, L500.2500 ####[facility] [address] [place], [address] Urea nitrogen [Mass/Vol] 16 mg/dL Normal 7-18 [facility] Comment on above: Performed By: #### L 100.0100, L300.3900, L500.2500 ####[facility] [address] [place], [address] Bedside Glucoseon 03-10-2024 FINGERSTICK GLU 167 mg/dL High 74-106 [facility] Comment on above: Result Comment: LEVI GEMENT OF PATIENT CARE PER NURSING PROTOCOL Performed By: #### L 501.080 ####[facility] [address] [place], [address] FINGERSTICK GLU 104 mg/dL Normal 74-106 [facility] Comment on above: Result Comment: LEVI GEMENT OF PATIENT CARE PER NURSING PROTOCOL Performed By: #### L 501.080 ####[facility] [address] [place], [address] FINGERSTICK GLU 123 mg/dL High 74-106 [facility] Comment on above: Result Comment: LEVI GEMENT OF PATIENT CARE PER NURSING PROTOCOL Performed By: #### L 501.080 ####[facility] [address] [place], [address] FINGERSTICK GLU 121 mg/dL High 74-106 [facility] Comment on above: Result Comment: LEVI GEMENT OF PATIENT CARE PER NURSING PROTOCOL Performed By: #### L 501.080 ####[facility] [address] [place], [address] CBC W/Diff, Automatedon 11-0 Absolute Lymph 2.69 X10 3/uL Normal 0.83-4.51 [facility] Comment on above: Performed By: #### L 100.0100, L300.3900, L500.2500 ####[facility] [address] [place], [address] Absolute Neut 2.1 X10 3/uL Normal 2.0-7.7 [facility] Comment on above: Performed By: #### L 100.0100, L300.3900, L500.2500 ####[facility] [address] [place], [address] Basophils/100 WBC (Bld) 0.9 % Normal 0-1 [facility] Comment on above: Performed By: #### L 100.0100, L300.3900, L500.2500 ####[facility] [address] [place], [address] Eosinophils/100 WBC (Bld) 2.4 % Normal 0-5 [facility] Comment on above: Performed By: #### L 100.0100, L300.3900, L500.2500 ####[facility] [address] [place], [address] Erythrocyte distribution width (RBC) [Ratio] 15.8 % High 11.6-14.6 [facility] Comment on above: Performed By: #### L 100.0100, L300.3900, L500.2500 ####[facility] [address] [place], [address] Hematocrit (Bld) [Volume fraction] 37.4 % Normal 37-47 [facility] Comment on above: Performed By: #### L 100.0100, L300.3900, L500.2500 ####[facility] [address] [place], [address] Hemoglobin (Bld) [Mass/Vol] 12.0 g/dL Normal 12.0-15.0 [facility] Comment on above: Performed By: #### L 100.0100, L300.3900, L500.2500 ####[facility] [address] [place], [address] IG% 0.200 Normal 0.0-0.9 [facility] Comment on above: Result Comment: IG% - Immature Granulocytes (promyelocytes, myelocytes andmetamyelocytes) > 1% indicates that a LEFT SHIFT is Present. Performed By: #### L 100.0100, L300.3900, L500.2500 ####[facility] [address] [place], [address] Lymphocytes/100 WBC (Bld) 49.0 % High 19-41 [facility] Comment on above: Performed By: #### L 100.0100, L300.3900, L500.2500 ####[facility] [address] [place], [address] MCH (RBC) [Entitic mass] 31.3 pg Normal 27.0-32.0 [facility] Comment on above: Performed By: #### L 100.0100, L300.3900, L500.2500 ####[facility] [address] [place], [address] MCHC (RBC) [Mass/Vol] 32.1 g/dL Normal 32-36 [facility] Comment on above: Performed By: #### L 100.0100, L300.3900, L500.2500 ####[facility] [address] [place], [address] MCV (RBC) [Entitic vol] 97.4 fL Normal 81-99 [facility] Comment on above: Performed By: #### L 100.0100, L300.3900, L500.2500 ####[facility] [address] [place], [address] Monocytes/100 WBC (Bld) 8.9 % Normal 0-10 [facility] Comment on above: Performed By: #### L 100.0100, L300.3900, L500.2500 ####[facility] [address] [place], [address] Neutrophils/100 WBC (Bld) 38.6 % Low 47-70 [facility] Comment on above: Performed By: #### L 100.0100, L300.3900, L500.2500 ####[facility] [address] [place], [address] Nucleated RBC (Bld) [#/Vol] 0.4 10*3/uL Normal 0-5 [facility] Comment on above: Performed By: #### L 100.0100, L300.3900, L500.2500 ####[facility] [address] [place], [address] Platelet mean volume (Bld) [Entitic vol] 9.2 fL Normal 6.2-12.0 [facility] Comment on above: Performed By: #### L 100.0100, L300.3900, L500.2500 ####[facility] [address] [place], [address] Platelets (Bld) [#/Vol] 235 10*3/uL Normal 150-450 [facility] Comment on above: Performed By: #### L 100.0100, L300.3900, L500.2500 ####[facility] [address] [place], [address] RBC (Bld) [#/Vol] 3.84 10*6/uL Low 4.2-5.4 [facility] Comment on above: Performed By: #### L 100.0100, L300.3900, L500.2500 ####[facility] [address] [place], [address] RDW SD 56.7 fl High 35.1-43.9 [facility] Comment on above: Performed By: #### L 100.0100, L300.3900, L500.2500 ####[facility] [address] [place], [address] WBC (Bld) [#/Vol] 5.5 10*3/uL Normal 4.4-11.0 [facility] Comment on above: Performed By: #### L 100.0100, L300.3900, L500.2500 ####[facility] [address] [place], [address] Partial Thromboplast Timeon 03-10-2024 aPTT Coag (Bld) [Time] 82.4 s High 24.1-36.2 [facility] Comment on above: Performed By: #### L 300.4310 ####[facility] [address] [place], [address] aPTT Coag (Bld) [Time] 40.0 s High 24.1-36.2 [facility] Comment on above: Performed By: #### L 300.4310 ####[facility] [address] [place], [address] aPTT Coag (Bld) [Time] 57.4 s High 24.1-36.2 [facility] Comment on above: Performed By: #### L 300.4310 ####[facility] [address] [place], [address] aPTT Coag (Bld) [Time] 70.5 s High 24.1-36.2 [facility] Comment on above: Performed By: #### L 300.4310 ####[facility] [address] [place], [address] Prothrombin Time w/INRon INR Coag (PPP) [Relative time] 1.5 {INR} Normal [facility] Comment on above: Performed By: #### L 100.0100, L300.3900, L500.2500 ####[facility] [address] [place], [address] PT Coag (PPP) [Time] 17.8 s High 11.7-14.9 [facility] Comment on above: Performed By: #### L 100.0100, L300.3900, L500.2500 ####[facility] [address] [place], [address] Vancomycin, Trough Levelon 1 1-09-2024 VANCO, TROUGH 11.8 ug/mL Normal 5.0-15.0 [facility] Comment on above: Order Comment: Comme nts: Trough to be drawn 30 mins prior to scheduled [id number] Result Comment: VANC OMYCIN STANDARED DRUG THERAPY TROUGH LEVEL: 5.0 - 15.0 mg/LVANCOMYCIN HIGH INTENSITY THERAPY TROUGH LEVEL: 15.0 - 20.0 mg/LHigh Intensity therapy recommended for serious lifethreatening infections include:- Slncxsmpuh-Gfmuvdcumnhx-Daxfyavsa (Ventilator/Healtcare Associated)-SepsisPLEASE CONTACT PHARMACY SERVICES (#8109) FOR INTERPRETATIONOF RESULTS. Performed By: #### L 501.8820 ####[facility] [address] [place], [address] Basic Metabolic Profile (BMP )on 03-09-2024 BUN/CRE 17.7 RATIO Normal 10-20 [facility] Comment on above: Performed By: #### L 100.0100, L500.2500, L300.3900 ####[facility] [address] [place], [address] CA,Total 9.2 mg/dL Normal 8.5-10.1 [facility] Comment on above: Performed By: #### L 100.0100, L500.2500, L300.3900 ####[facility] [address] [place], [address] Chloride [Moles/Vol] 112 mmol/L High 98-107 [facility] Comment on above: Performed By: #### L 100.0100, L500.2500, L300.3900 ####[facility] [address] [place], [address] CO2 [Moles/Vol] 20.0 mmol/L Low 21.0-32.0 [facility] Comment on above: Performed By: #### L 100.0100, L500.2500, L300.3900 ####[facility] [address] [place], [address] Creatinine [Mass/Vol] 0.96 mg/dL Normal 0.55-1.02 [facility] Comment on above: Result Comment: The validity of the calculated GFR GFRAA in patients over70 years has not been determined. Clinical correlation isessential. Performed By: #### L 100.0100, L500.2500, L300.3900 ####[facility] [address] [place], [address] ECRCL 40.27 ml/min Normal [facility] Comment on above: Performed By: #### L 100.0100, L500.2500, L300.3900 ####[facility] [address] [place], [address] EST GFR - AA 71 mL/min Normal >60 [facility] Comment on above: Result Comment: Afri can Sudanese GFR Calc Performed By: #### L 100.0100, L500.2500, L300.3900 ####[facility] [address] [place], [address] GAP 9 Normal 5-15 [facility] Comment on above: Performed By: #### L 100.0100, L500.2500, L300.3900 ####[facility] [address] [place], [address] GFR/1.73 sq M.predicted among non-blacks MDRD (S/P/Bld) [Vol rate/Area] 59 mL/min/{1.73_m2} Low >60 [facility] Comment on above: Result Comment: Non- GFR Calc Performed By: #### L 100.0100, L500.2500, L300.3900 ####[facility] [address] [place], [address] Glucose [Mass/Vol] 118 mg/dL High 74-106 [facility] Comment on above: Result Comment: Fast ing Glucose result from 100 to 125 mg/dLsuggests IMPAIRED HOMEOSTASIS per A.D.A. criteria. Performed By: #### L 100.0100, L500.2500, L300.3900 ####[facility] [address] [place], [address] Potassium [Moles/Vol] 3.7 mmol/L Normal 3.5-5.1 [facility] Comment on above: Performed By: #### L 100.0100, L500.2500, L300.3900 ####[facility] [address] [place], [address] Sodium [Moles/Vol] 140 mmol/L Normal 136-145 [facility] Comment on above: Performed By: #### L 100.0100, L500.2500, L300.3900 ####[facility] [address] [place], [address] Urea nitrogen [Mass/Vol] 17 mg/dL Normal 7-18 [facility] Comment on above: Performed By: #### L 100.0100, L500.2500, L300.3900 ####[facility] [address] [place], [address] BUN Normal 7-18 [facility] Comment on above: Result Comment: Canc elled via OM: Order cancelled - Patient discharged Performed By: #### L 500.2500 ####[facility] [address] [place], [address] BUN/CRE Normal 10-20 [facility] Comment on above: Result Comment: Canc elled via OM: Order cancelled - Patient discharged Performed By: #### L 500.2500 ####[facility] [address] [place], [address] CA,Total Normal 8.5-10.1 [facility] Comment on above: Result Comment: Canc elled via OM: Order cancelled - Patient discharged Performed By: #### L 500.2500 ####[facility] [address] [place], [address] CL Normal 98-107 [facility] Comment on above: Result Comment: Canc elled via OM: Order cancelled - Patient discharged Performed By: #### L 500.2500 ####[facility] [address] [place], [address] CO2 Normal 21.0-32.0 [facility] Comment on above: Result Comment: Canc elled via OM: Order cancelled - Patient discharged Performed By: #### L 500.2500 ####[facility] [address] [facility] [address] CREAT,SERUM Normal 0.55-1.02 [facility] Comment on above: Result Comment: Canc elled via OM: Order cancelled - Patient discharged Performed By: #### L 500.2500 ####[facility] [address] [facility] [address] EST GFR Normal >60 [facility] Comment on above: Result Comment: Canc elled via OM: Order cancelled - Patient discharged Performed By: #### L 500.2500 ####[facility] [address] [place], [address] EST GFR - AA Normal >60 [facility] Comment on above: Result Comment: Canc elled via OM: Order cancelled - Patient discharged Performed By: #### L 500.2500 ####[facility] [address] [place], [address] GAP Normal 5-15 [facility] Comment on above: Result Comment: Canc elled via OM: Order cancelled - Patient discharged Performed By: #### L 500.2500 ####[facility] [address] [place], [address] GLU Normal 74-106 [facility] Comment on above: Result Comment: Canc elled via OM: Order cancelled - Patient discharged Performed By: #### L 500.2500 ####[facility] [address] [place], [address] Potassium Normal 3.5-5.1 [facility] Comment on above: Result Comment: Canc elled via OM: Order cancelled - Patient discharged Performed By: #### L 500.2500 ####[facility] [address] [place], [address] Basic Metabolic Profile (BMP) Normal 136-145 [facility] Comment on above: Result Comment: Canc elled via OM: Order cancelled - Patient discharged Performed By: #### L 500.2500 ####[facility] [address] [place], [address] Bedside Glucoseon 03-09-2024 FINGERSTICK GLU 102 mg/dL Normal 74-106 [facility] Comment on above: Result Comment: LEVI GEMENT OF PATIENT CARE PER NURSING PROTOCOL Performed By: #### L 501.080 ####[facility] [address] [place], [address] FINGERSTICK GLU 126 mg/dL High 74-106 [facility] Comment on above: Result Comment: LEVI GEMENT OF PATIENT CARE PER NURSING PROTOCOL Performed By: #### L 501.080 ####[facility] [address] [place], [address] FINGERSTICK GLU 140 mg/dL High 74-106 [facility] Comment on above: Result Comment: LEVI GEMENT OF PATIENT CARE PER NURSING PROTOCOL Performed By: #### L 501.080 ####[facility] [address] [place], [address] FINGERSTICK GLU 107 mg/dL High 74-106 [facility] Comment on above: Result Comment: LEVI GEMENT OF PATIENT CARE PER NURSING PROTOCOL Performed By: #### L 501.080 ####[facility] [address] [place], [address] CBC W/Diff, Automatedon 11-0 8-2024 Absolute Lymph 1.71 X10 3/uL Normal 0.83-4.51 [facility] Comment on above: Performed By: #### L 100.0100, L500.2500, L300.3900 ####[facility] [address] [place], [address] Absolute Neut 2.5 X10 3/uL Normal 2.0-7.7 [facility] Comment on above: Performed By: #### L 100.0100, L500.2500, L300.3900 ####[facility] [address] [place], [address] Basophils/100 WBC (Bld) 0.6 % Normal 0-1 [facility] Comment on above: Performed By: #### L 100.0100, L500.2500, L300.3900 ####[facility] [address] [place], [address] Eosinophils/100 WBC (Bld) 2.4 % Normal 0-5 [facility] Comment on above: Performed By: #### L 100.0100, L500.2500, L300.3900 ####[facility] [address] [place], [address] Erythrocyte distribution width (RBC) [Ratio] 15.9 % High 11.6-14.6 [facility] Comment on above: Performed By: #### L 100.0100, L500.2500, L300.3900 ####[facility] [address] [place], [address] Hematocrit (Bld) [Volume fraction] 35.6 % Low 37-47 [facility] Comment on above: Performed By: #### L 100.0100, L500.2500, L300.3900 ####[facility] [address] [place], [address] Hemoglobin (Bld) [Mass/Vol] 11.7 g/dL Low 12.0-15.0 [facility] Comment on above: Performed By: #### L 100.0100, L500.2500, L300.3900 ####[facility] [address] [place], [address] IG% 0.200 Normal 0.0-0.9 [facility] Comment on above: Result Comment: IG% - Immature Granulocytes (promyelocytes, myelocytes andmetamyelocytes) > 1% indicates that a LEFT SHIFT is Present. Performed By: #### L 100.0100, L500.2500, L300.3900 ####[facility] [address] [place], [address] Lymphocytes/100 WBC (Bld) 34.8 % Normal 19-41 [facility] Comment on above: Performed By: #### L 100.0100, L500.2500, L300.3900 ####[facility] [address] [place], [address] MCH (RBC) [Entitic mass] 31.7 pg Normal 27.0-32.0 [facility] Comment on above: Performed By: #### L 100.0100, L500.2500, L300.3900 ####[facility] [address] [place], [address] MCHC (RBC) [Mass/Vol] 32.9 g/dL Normal 32-36 [facility] Comment on above: Performed By: #### L 100.0100, L500.2500, L300.3900 ####[facility] [address] [place], [address] MCV (RBC) [Entitic vol] 96.5 fL Normal 81-99 [facility] Comment on above: Performed By: #### L 100.0100, L500.2500, L300.3900 ####[facility] [address] [place], [address] Monocytes/100 WBC (Bld) 11.8 % High 0-10 [facility] Comment on above: Performed By: #### L 100.0100, L500.2500, L300.3900 ####[facility] [address] [place], [address] Neutrophils/100 WBC (Bld) 50.2 % Normal 47-70 [facility] Comment on above: Performed By: #### L 100.0100, L500.2500, L300.3900 ####[facility] [address] [place], [address] Nucleated RBC (Bld) [#/Vol] 0 10*3/uL Normal 0-5 [facility] Comment on above: Performed By: #### L 100.0100, L500.2500, L300.3900 ####[facility] [address] [place], [address] Platelet mean volume (Bld) [Entitic vol] 9.7 fL Normal 6.2-12.0 [facility] Comment on above: Performed By: #### L 100.0100, L500.2500, L300.3900 ####[facility] [address] [place], [address] Platelets (Bld) [#/Vol] 230 10*3/uL Normal 150-450 [facility] Comment on above: Performed By: #### L 100.0100, L500.2500, L300.3900 ####[facility] [address] [place], [address] RBC (Bld) [#/Vol] 3.69 10*6/uL Low 4.2-5.4 [facility] Comment on above: Performed By: #### L 100.0100, L500.2500, L300.3900 ####[facility] [address] [place], [address] RDW SD 56.4 fl High 35.1-43.9 [facility] Comment on above: Performed By: #### L 100.0100, L500.2500, L300.3900 ####[facility] [address] [place], [address] WBC (Bld) [#/Vol] 4.9 10*3/uL Normal 4.4-11.0 [facility] Comment on above: Performed By: #### L 100.0100, L500.2500, L300.3900 ####[facility] [address] [place], [address] Absolute Neut Normal 2.0-7.7 [facility] Comment on above: Result Comment: Canc elled via OM: Order cancelled - Patient discharged Performed By: #### L 100.0100 ####[facility] [address] [place], [address] HCT Normal 37-47 [facility] Comment on above: Result Comment: Canc elled via OM: Order cancelled - Patient discharged Performed By: #### L 100.0100 ####[facility] [address] [place], [address] HGB Normal 12.0-15.0 [facility] Comment on above: Result Comment: Canc elled via OM: Order cancelled - Patient discharged Performed By: #### L 100.0100 ####[facility] [address] [place], [address] MCH Normal 27.0-32.0 [facility] Comment on above: Result Comment: Canc elled via OM: Order cancelled - Patient discharged Performed By: #### L 100.0100 ####[facility] [address] [place], [address] MCHC Normal 32-36 [facility] Comment on above: Result Comment: Canc elled via OM: Order cancelled - Patient discharged Performed By: #### L 100.0100 ####[facility] [address] [place], [address] MCV Normal 81-99 [facility] Comment on above: Result Comment: Canc elled via OM: Order cancelled - Patient discharged Performed By: #### L 100.0100 ####[facility] [address] [place], [address] NEUT% Normal 47-70 [facility] Comment on above: Result Comment: Canc elled via OM: Order cancelled - Patient discharged Performed By: #### L 100.0100 ####[facility] [address] [place], [address] PLT Normal 150-450 [facility] Comment on above: Result Comment: Canc elled via OM: Order cancelled - Patient discharged Performed By: #### L 100.0100 ####[facility] [address] [place], [address] RBC Normal 4.2-5.4 [facility] Comment on above: Result Comment: Canc elled via OM: Order cancelled - Patient discharged Performed By: #### L 100.0100 ####[facility] [address] [place], [address] RDW CV Normal 11.6-14.6 [facility] Comment on above: Result Comment: Canc elled via OM: Order cancelled - Patient discharged Performed By: #### L 100.0100 ####[facility] [address] [place], [address] RDW SD Normal 35.1-43.9 [facility] Comment on above: Result Comment: Canc elled via OM: Order cancelled - Patient discharged Performed By: #### L 100.0100 ####[facility] [address] [place], [address] WBC Normal 4.4-11.0 [facility] Comment on above: Result Comment: Canc elled via OM: Order cancelled - Patient discharged Performed By: #### L 100.0100 ####[facility] [address] [place], [address] Consultation - Infectious Dx on 03-09-2024 Consultation - Infectious Dx Normal [facility] Partial Thromboplast Timeon 03-09-2024 aPTT Coag (Bld) [Time] 116.2 s Invalid Interpretation Code 24.1-36.2 [facility] Comment on above: Order Comment: Comme nts: time sensitive hep gtt Result Comment: CRIT ICAL VALUE CALLED TO HERMELINDA BHATTI03/09/24 2100 Annel Holder.RESULTS READ BACK BY SAME. Performed By: #### L 300.4310 ####[facility] [address] [place], [address] aPTT Coag (Bld) [Time] 36.0 s Normal 24.1-36.2 [facility] Comment on above: Performed By: #### L 300.4310 ####[facility] [address] [place], [address] Prothrombin Time w/INRon INR Coag (PPP) [Relative time] 2.2 {INR} Normal [facility] Comment on above: Performed By: #### L 100.0100, L500.2500, L300.3900 ####[facility] [address] [place], [address] PT Coag (PPP) [Time] 24.6 s High 11.7-14.9 [facility] Comment on above: Performed By: #### L 100.0100, L500.2500, L300.3900 ####[facility] [address] [place], [address] 12 Lead EKGon 03-08-2024 12 Lead EKG Normal [facility] Basic Metabolic Profile (BMP )on 03-08-2024 BUN Normal 7-18 [facility] Comment on above: Result Comment: CMP ALREADY ORDERED FOR MORNING RUN Performed By: #### L 500.2500 ####[facility] [address] [place], [address] BUN/CRE Normal 10-20 [facility] Comment on above: Result Comment: CMP ALREADY ORDERED FOR MORNING RUN Performed By: #### L 500.2500 ####[facility] [address] [place], [address] CA,Total Normal 8.5-10.1 [facility] Comment on above: Result Comment: CMP ALREADY ORDERED FOR MORNING RUN Performed By: #### L 500.2500 ####[facility] [address] [place], [address] CL Normal 98-107 [facility] Comment on above: Result Comment: CMP ALREADY ORDERED FOR MORNING RUN Performed By: #### L 500.2500 ####[facility] [address] [place], [address] CO2 Normal 21.0-32.0 [facility] Comment on above: Result Comment: CMP ALREADY ORDERED FOR MORNING RUN Performed By: #### L 500.2500 ####[facility] [address] [place], [address] CREAT,SERUM Normal 0.55-1.02 [facility] Comment on above: Result Comment: CMP ALREADY ORDERED FOR MORNING RUN Performed By: #### L 500.2500 ####[facility] [address] [place], [address] EST GFR Normal >60 [facility] Comment on above: Result Comment: CMP ALREADY ORDERED FOR MORNING RUN Performed By: #### L 500.2500 ####[facility] [address] [place], [address] EST GFR - AA Normal >60 [facility] Comment on above: Result Comment: CMP ALREADY ORDERED FOR MORNING RUN Performed By: #### L 500.2500 ####[facility] [address] [place], [address] GAP Normal 5-15 [facility] Comment on above: Result Comment: CMP ALREADY ORDERED FOR MORNING RUN Performed By: #### L 500.2500 ####[facility] [address] [place], [address] GLU Normal 74-106 [facility] Comment on above: Result Comment: CMP ALREADY ORDERED FOR MORNING RUN Performed By: #### L 500.2500 ####[facility] [address] [place], [address] Potassium Normal 3.5-5.1 [facility] Comment on above: Result Comment: CMP ALREADY ORDERED FOR MORNING RUN Performed By: #### L 500.2500 ####[facility] [address] [place], [address] Basic Metabolic Profile (BMP) Normal 136-145 [facility] Comment on above: Result Comment: CMP ALREADY ORDERED FOR MORNING RUN Performed By: #### L 500.2500 ####[facility] [address] [place], [address] Bedside Glucoseon 03-08-2024 FINGERSTICK GLU 143 mg/dL High 74-106 [facility] Comment on above: Result Comment: LEVI GEMENT OF PATIENT CARE PER NURSING PROTOCOL Performed By: #### L 501.080 ####[facility] [address] [place], [address] FINGERSTICK GLU 135 mg/dL High 74-106 [facility] Comment on above: Result Comment: LEVI GEMENT OF PATIENT CARE PER NURSING PROTOCOL Performed By: #### L 501.080 ####[facility] [address] [place], [address] FINGERSTICK GLU 107 mg/dL High 74-106 [facility] Comment on above: Result Comment: LEVI GEMENT OF PATIENT CARE PER NURSING PROTOCOL Performed By: #### L 501.080 ####[facility] [address] [place], [address] CBC W/Diff, Automatedon 11-0 7-2023 Absolute Lymph 1.74 X10 3/uL Normal 0.83-4.51 [facility] Comment on above: Performed By: #### L 500.4050, L100.0100, L501.9985, L501.9520, L501.2300, L501.5200 ####[facility] [address] [place], [address] Absolute Neut 2.3 X10 3/uL Normal 2.0-7.7 [facility] Comment on above: Performed By: #### L 500.4050, L100.0100, L501.9985, L501.9520, L501.2300, L501.5200 ####[facility] [address] [place], [address] Basophils/100 WBC (Bld) 0.7 % Normal 0-1 [facility] Comment on above: Performed By: #### L 500.4050, L100.0100, L501.9985, L501.9520, L501.2300, L501.5200 ####[facility] [address] [place], [address] Eosinophils/100 WBC (Bld) 2.4 % Normal 0-5 [facility] Comment on above: Performed By: #### L 500.4050, L100.0100, L501.9985, L501.9520, L501.2300, L501.5200 ####[facility] [address] [place], [address] Erythrocyte distribution width (RBC) [Ratio] 15.6 % High 11.6-14.6 [facility] Comment on above: Performed By: #### L 500.4050, L100.0100, L501.9985, L501.9520, L501.2300, L501.5200 ####[facility] [address] [place], [address] Hematocrit (Bld) [Volume fraction] 34.1 % Low 37-47 [facility] Comment on above: Performed By: #### L 500.4050, L100.0100, L501.9985, L501.9520, L501.2300, L501.5200 ####[facility] [address] [place], [address] Hemoglobin (Bld) [Mass/Vol] 10.7 g/dL Low 12.0-15.0 [facility] Comment on above: Performed By: #### L 500.4050, L100.0100, L501.9985, L501.9520, L501.2300, L501.5200 ####[facility] [address] [place], [address] IG% 0.400 Normal 0.0-0.9 [facility] Comment on above: Result Comment: IG% - Immature Granulocytes (promyelocytes, myelocytes andmetamyelocytes) > 1% indicates that a LEFT SHIFT is Present. Performed By: #### L 500.4050, L100.0100, L501.9985, L501.9520, L501.2300, L501.5200 ####[facility] [address] [place], [address] Lymphocytes/100 WBC (Bld) 37.9 % Normal 19-41 [facility] Comment on above: Performed By: #### L 500.4050, L100.0100, L501.9985, L501.9520, L501.2300, L501.5200 ####[facility] [address] [place], [address] MCH (RBC) [Entitic mass] 31.0 pg Normal 27.0-32.0 [facility] Comment on above: Performed By: #### L 500.4050, L100.0100, L501.9985, L501.9520, L501.2300, L501.5200 ####[facility] [address] [place], [address] MCHC (RBC) [Mass/Vol] 31.4 g/dL Low 32-36 [facility] Comment on above: Performed By: #### L 500.4050, L100.0100, L501.9985, L501.9520, L501.2300, L501.5200 ####[facility] [address] [place], [address] MCV (RBC) [Entitic vol] 98.8 fL Normal 81-99 [facility] Comment on above: Performed By: #### L 500.4050, L100.0100, L501.9985, L501.9520, L501.2300, L501.5200 ####[facility] [address] [place], [address] Monocytes/100 WBC (Bld) 9.4 % Normal 0-10 [facility] Comment on above: Performed By: #### L 500.4050, L100.0100, L501.9985, L501.9520, L501.2300, L501.5200 ####[facility] [address] [place], [address] Neutrophils/100 WBC (Bld) 49.2 % Normal 47-70 [facility] Comment on above: Performed By: #### L 500.4050, L100.0100, L501.9985, L501.9520, L501.2300, L501.5200 ####[facility] [address] [place], [address] Nucleated RBC (Bld) [#/Vol] 0 10*3/uL Normal 0-5 [facility] Comment on above: Performed By: #### L 500.4050, L100.0100, L501.9985, L501.9520, L501.2300, L501.5200 ####[facility] [address] [place], [address] Platelet mean volume (Bld) [Entitic vol] 10.1 fL Normal 6.2-12.0 [facility] Comment on above: Performed By: #### L 500.4050, L100.0100, L501.9985, L501.9520, L501.2300, L501.5200 ####[facility] [address] [place], [address] Platelets (Bld) [#/Vol] 228 10*3/uL Normal 150-450 [facility] Comment on above: Performed By: #### L 500.4050, L100.0100, L501.9985, L501.9520, L501.2300, L501.5200 ####[facility] [address] [place], [address] RBC (Bld) [#/Vol] 3.45 10*6/uL Low 4.2-5.4 [facility] Comment on above: Performed By: #### L 500.4050, L100.0100, L501.9985, L501.9520, L501.2300, L501.5200 ####[facility] [address] [place], [address] RDW SD 56.7 fl High 35.1-43.9 [facility] Comment on above: Performed By: #### L 500.4050, L100.0100, L501.9985, L501.9520, L501.2300, L501.5200 ####[facility] [address] [place], [address] WBC (Bld) [#/Vol] 4.6 10*3/uL Normal 4.4-11.0 [facility] Comment on above: Performed By: #### L 500.4050, L100.0100, L501.9985, L501.9520, L501.2300, L501.5200 ####[facility] [address] [place], [address] CPK Total, Creatine Kinaseon 03-08-2024 CPK TOTAL 47 U/L Normal 26-192 [facility] Comment on above: Performed By: #### L 501.3620 ####[facility] [address] [place], [address] Comprehensive Metabolic Prof ilon 03-08-2024 Albumin [Mass/Vol] 2.9 g/dL Low 3.2-5.0 [facility] Comment on above: Performed By: #### L 500.4050, L100.0100, L501.9985, L501.9520, L501.2300, L501.5200 ####[facility] [address] [place], [address] Albumin/Globulin [Mass ratio] 0.9 {ratio} Normal 0.9-2.4 [facility] Comment on above: Performed By: #### L 500.4050, L100.0100, L501.9985, L501.9520, L501.2300, L501.5200 ####[facility] [address] [place], [address] ALK P 52 U/L Normal 45-117 [facility] Comment on above: Performed By: #### L 500.4050, L100.0100, L501.9985, L501.9520, L501.2300, L501.5200 ####[facility] [address] [place], [address] ALT [Catalytic activity/Vol] 37 U/L Normal 13-56 [facility] Comment on above: Performed By: #### L 500.4050, L100.0100, L501.9985, L501.9520, L501.2300, L501.5200 ####[facility] [address] [place], [address] AST [Catalytic activity/Vol] 33 U/L Normal 15-37 [facility] Comment on above: Performed By: #### L 500.4050, L100.0100, L501.9985, L501.9520, L501.2300, L501.5200 ####[facility] [address] [place], [address] Bilirubin [Mass/Vol] 0.30 mg/dL Normal 0.20-1.00 [facility] Comment on above: Result Comment: For patients on eltrombopag therapy, use of Dimension [place] TBIL is not recommended. Performed By: #### L 500.4050, L100.0100, L501.9985, L501.9520, L501.2300, L501.5200 ####[facility] [address] [place], [address] BUN/CRE 32.4 RATIO High 10-20 [facility] Comment on above: Performed By: #### L 500.4050, L100.0100, L501.9985, L501.9520, L501.2300, L501.5200 ####[facility] [address] [place], [address] CA,Total 8.5 mg/dL Normal 8.5-10.1 [facility] Comment on above: Performed By: #### L 500.4050, L100.0100, L501.9985, L501.9520, L501.2300, L501.5200 ####[facility] [address] [place], [address] Chloride [Moles/Vol] 111 mmol/L High 98-107 [facility] Comment on above: Performed By: #### L 500.4050, L100.0100, L501.9985, L501.9520, L501.2300, L501.5200 ####[facility] [address] [place], [address] CO2 [Moles/Vol] 23.0 mmol/L Normal 21.0-32.0 [facility] Comment on above: Performed By: #### L 500.4050, L100.0100, L501.9985, L501.9520, L501.2300, L501.5200 ####[facility] [address] [place], [address] Creatinine [Mass/Vol] 1.02 mg/dL Normal 0.55-1.02 [facility] Comment on above: Result Comment: The validity of the calculated GFR GFRAA in patients over70 years has not been determined. Clinical correlation isessential. Performed By: #### L 500.4050, L100.0100, L501.9985, L501.9520, L501.2300, L501.5200 ####[facility] [address] [place], [address] ECRCL 37.69 ml/min Normal [facility] Comment on above: Performed By: #### L 500.4050, L100.0100, L501.9985, L501.9520, L501.2300, L501.5200 ####[facility] [address] [place], [address] EST GFR - AA 66 mL/min Normal >60 [facility] Comment on above: Result Comment: Afri can Sudanese GFR Calc Performed By: #### L 500.4050, L100.0100, L501.9985, L501.9520, L501.2300, L501.5200 ####[facility] [address] [place], [address] GAP 5 Normal 5-15 [facility] Comment on above: Performed By: #### L 500.4050, L100.0100, L501.9985, L501.9520, L501.2300, L501.5200 ####[facility] [address] [place], [address] GFR/1.73 sq M.predicted among non-blacks MDRD (S/P/Bld) [Vol rate/Area] 55 mL/min/{1.73_m2} Low >60 [facility] Comment on above: Result Comment: Non- GFR Calc Performed By: #### L 500.4050, L100.0100, L501.9985, L501.9520, L501.2300, L501.5200 ####[facility] [address] [place], [address] Globulin (S) [Mass/Vol] 3.2 g/dL Normal 2.2-4.2 [facility] Comment on above: Performed By: #### L 500.4050, L100.0100, L501.9985, L501.9520, L501.2300, L501.5200 ####[facility] [address] [place], [address] Glucose [Mass/Vol] 91 mg/dL Normal 74-106 [facility] Comment on above: Performed By: #### L 500.4050, L100.0100, L501.9985, L501.9520, L501.2300, L501.5200 ####[facility] [address] [place], [address] Potassium [Moles/Vol] 3.6 mmol/L Normal 3.5-5.1 [facility] Comment on above: Performed By: #### L 500.4050, L100.0100, L501.9985, L501.9520, L501.2300, L501.5200 ####[facility] [address] [place], [address] Sodium [Moles/Vol] 139 mmol/L Normal 136-145 [facility] Comment on above: Performed By: #### L 500.4050, L100.0100, L501.9985, L501.9520, L501.2300, L501.5200 ####[facility] [address] [place], [address] T PROT 6.1 g/dL Low 6.4-8.2 [facility] Comment on above: Performed By: #### L 500.4050, L100.0100, L501.9985, L501.9520, L501.2300, L501.5200 ####[facility] [address] [place], [address] Urea nitrogen [Mass/Vol] 33 mg/dL High 7-18 [facility] Comment on above: Performed By: #### L 500.4050, L100.0100, L501.9985, L501.9520, L501.2300, L501.5200 ####[facility] [address] [place], [address] Consultation - Surgicalon Consultation - Surgical Normal [facility] Hemoglobin A1con 03-08-2024 HbA1c (Bld) [Mass fraction] 5.7 % High 3.8-5.6 [facility] Comment on above: Result Comment: Norm al < 5.7 % Prediabetic 5.7 - 6.4 % Diabetic >or= 6.5 % Please note range changes. Performed By: #### L 500.4050, L100.0100, L501.9985, L501.9520, L501.2300, L501.5200 ####[facility] [address] [place], [address] Lower Ext/No Jt/w/oon 2023 Lower Ext/No Jt/w/o Normal [facility] Magnesiumon 03-08-2024 Magnesium [Mass/Vol] 2.3 mg/dL Normal 1.6-2.6 [facility] Comment on above: Performed By: #### L 500.4050, L100.0100, L501.9985, L501.9520, L501.2300, L501.5200 ####[facility] [address] [place], [address] Partial Thromboplast Timeon 03-08-2024 aPTT Coag (Bld) [Time] 64.8 s High 24.1-36.2 [facility] Comment on above: Order Comment: CRITI SUSAN VALUE CALLED TO JOSE CARNES03/08/24 [facility] Betty Bacon.RESULTS READ BACK BY SAME. Performed By: #### L 300.3900, L300.4310 ####[facility] [address] [place], [address] Phosphoruson 03-08-2024 Phosphate [Mass/Vol] 4.1 mg/dL Normal 2.5-4.9 [facility] Comment on above: Performed By: #### L 500.4050, L100.0100, L501.9985, L501.9520, L501.2300, L501.5200 ####[facility] [address] [place], [address] Prothrombin Time w/INRon INR Coag (PPP) [Relative time] 4.7 {INR} Invalid Interpretation Code [facility] Comment on above: Order Comment: CRITI SUSAN VALUE CALLED TO JOSE CARNES03/08/24 [facility] Betty Bacon.RESULTS READ BACK BY SAME. Performed By: #### L 300.3900, L300.4310 ####[facility] [address] [place], [address] PT Coag (PPP) [Time] 43.5 s High 11.7-14.9 [facility] Comment on above: Order Comment: CRITI SUSAN VALUE CALLED TO JOSE CARNES03/08/24 0711 Betty Bacon.RESULTS READ BACK BY SAME. Performed By: #### L 300.3900, L300.4310 ####[facility] [address] [place], [place], [id number] INR Coag (PPP) [Relative time] 4.6 {INR} Invalid Interpretation Code [facility] Comment on above: Result Comment: CRIT ICAL VALUE CALLED TO VBVHEIVZ07/07/24 0102 Krys Minaya.RESULTS READ BACK BY SAME. Performed By: #### L 300.3900 ####[facility] [address] [place], [place], [id number] PT Coag (PPP) [Time] 42.9 s High 11.7-14.9 [facility] Comment on above: Performed By: #### L 300.3900 ####[facility] [address] [place], [place], [address] Thyroid Stim Hormone (TSH)on 03-08-2024 TSH 5.590 uIU/mL High 0.358-3.740 [facility] Comment on above: Performed By: #### L 500.4050, L100.0100, L501.9985, L501.9520, L501.2300, L501.5200 ####[facility] [address] [place], [place], [address] Type AND Screenon 03-08-2024 ABO and Rh group Nom (Bld) Blood group A Rh(D) positive Normal [facility] Comment on above: Order Comment: S Performed By: #### B TS ####[facility] [address] [place], [place], [address] US Art Duplex Unilat Lower E xton 03-08-2024 US Art Duplex Unilat Lower Ext Normal [facility] Basic Metabolic Profile (BMP )on 03-07-2024 BUN/CRE 35.3 RATIO High 10-20 [facility] Comment on above: Performed By: #### L 500.2500, L101.9900, L100.0100, L501.6710 ####[facility] [address] [place], [address] CA,Total 9.3 mg/dL Normal 8.5-10.1 [facility] Comment on above: Performed By: #### L 500.2500, L101.9900, L100.0100, L501.6710 ####[facility] [address] [place], [address] Chloride [Moles/Vol] 106 mmol/L Normal 98-107 [facility] Comment on above: Performed By: #### L 500.2500, L101.9900, L100.0100, L501.6710 ####[facility] [address] [place], [address] CO2 [Moles/Vol] 25.0 mmol/L Normal 21.0-32.0 [facility] Comment on above: Performed By: #### L 500.2500, L101.9900, L100.0100, L501.6710 ####[facility] [address] [place], [address] Creatinine [Mass/Vol] 1.16 mg/dL High 0.55-1.02 [facility] Comment on above: Result Comment: The validity of the calculated GFR GFRAA in patients over70 years has not been determined. Clinical correlation isessential. Performed By: #### L 500.2500, L101.9900, L100.0100, L501.6710 ####[facility] [address] [place], [address] ECRCL 32.94 ml/min Normal [facility] Comment on above: Performed By: #### L 500.2500, L101.9900, L100.0100, L501.6710 ####[facility] [address] [place], [address] EST GFR - AA 57 mL/min Low >60 [facility] Comment on above: Result Comment: Afri can Sudanese GFR Calc Performed By: #### L 500.2500, L101.9900, L100.0100, L501.6710 ####[facility] [address] [place], [address] GAP 7 Normal 5-15 [facility] Comment on above: Performed By: #### L 500.2500, L101.9900, L100.0100, L501.6710 ####[facility] [address] [place], [address] GFR/1.73 sq M.predicted among non-blacks MDRD (S/P/Bld) [Vol rate/Area] 47 mL/min/{1.73_m2} Low >60 [facility] Comment on above: Result Comment: Non- GFR Calc Performed By: #### L 500.2500, L101.9900, L100.0100, L501.6710 ####[facility] [address] [place], [address] Glucose [Mass/Vol] 150 mg/dL High 74-106 [facility] Comment on above: Result Comment: Fast ing Glucose result greater than or equal to 126 mg/dLsuggests DIABETES MELLITUS per A.D.A. criteria. Performed By: #### L 500.2500, L101.9900, L100.0100, L501.6710 ####[facility] [address] [place], [address] Potassium [Moles/Vol] 3.8 mmol/L Normal 3.5-5.1 [facility] Comment on above: Performed By: #### L 500.2500, L101.9900, L100.0100, L501.6710 ####[facility] [address] [place], [address] Sodium [Moles/Vol] 138 mmol/L Normal 136-145 [facility] Comment on above: Performed By: #### L 500.2500, L101.9900, L100.0100, L501.6710 ####[facility] [address] [place], [address] Urea nitrogen [Mass/Vol] 41 mg/dL High 7-18 [facility] Comment on above: Performed By: #### L 500.2500, L101.9900, L100.0100, L501.6710 ####[facility] [address] [place], [address] CBC W/Diff, Automatedon 11-0 6-2023 Absolute Lymph 1.80 X10 3/uL Normal 0.83-4.51 [facility] Comment on above: Performed By: #### L 500.2500, L101.9900, L100.0100, L501.6710 ####[facility] [address] [place], [address] Absolute Neut 2.6 X10 3/uL Normal 2.0-7.7 [facility] Comment on above: Performed By: #### L 500.2500, L101.9900, L100.0100, L501.6710 ####[facility] [address] [place], [address] Basophils/100 WBC (Bld) 0.4 % Normal 0-1 [facility] Comment on above: Performed By: #### L 500.2500, L101.9900, L100.0100, L501.6710 ####[facility] [address] [place], [address] Eosinophils/100 WBC (Bld) 1.6 % Normal 0-5 [facility] Comment on above: Performed By: #### L 500.2500, L101.9900, L100.0100, L501.6710 ####[facility] [address] [place], [address] Erythrocyte distribution width (RBC) [Ratio] 15.9 % High 11.6-14.6 [facility] Comment on above: Performed By: #### L 500.2500, L101.9900, L100.0100, L501.6710 ####[facility] [address] [place], [address] Hematocrit (Bld) [Volume fraction] 37.6 % Normal 37-47 [facility] Comment on above: Performed By: #### L 500.2500, L101.9900, L100.0100, L501.6710 ####[facility] [address] [place], [address] Hemoglobin (Bld) [Mass/Vol] 12.3 g/dL Normal 12.0-15.0 [facility] Comment on above: Performed By: #### L 500.2500, L101.9900, L100.0100, L501.6710 ####[facility] [address] [place], [address] IG% 0.200 Normal 0.0-0.9 [facility] Comment on above: Result Comment: IG% - Immature Granulocytes (promyelocytes, myelocytes andmetamyelocytes) > 1% indicates that a LEFT SHIFT is Present. Performed By: #### L 500.2500, L101.9900, L100.0100, L501.6710 ####[facility] [address] [place], [address] Lymphocytes/100 WBC (Bld) 36.0 % Normal 19-41 [facility] Comment on above: Performed By: #### L 500.2500, L101.9900, L100.0100, L501.6710 ####[facility] [address] [place], [address] MCH (RBC) [Entitic mass] 31.8 pg Normal 27.0-32.0 [facility] Comment on above: Performed By: #### L 500.2500, L101.9900, L100.0100, L501.6710 ####[facility] [address] [place], [address] MCHC (RBC) [Mass/Vol] 32.7 g/dL Normal 32-36 [facility] Comment on above: Performed By: #### L 500.2500, L101.9900, L100.0100, L501.6710 ####[facility] [address] [place], [address] MCV (RBC) [Entitic vol] 97.2 fL Normal 81-99 [facility] Comment on above: Performed By: #### L 500.2500, L101.9900, L100.0100, L501.6710 ####[facility] [address] [place], [address] Monocytes/100 WBC (Bld) 9.0 % Normal 0-10 [facility] Comment on above: Performed By: #### L 500.2500, L101.9900, L100.0100, L501.6710 ####[facility] [address] [place], [address] Neutrophils/100 WBC (Bld) 52.8 % Normal 47-70 [facility] Comment on above: Performed By: #### L 500.2500, L101.9900, L100.0100, L501.6710 ####[facility] [address] [place], [address] Nucleated RBC (Bld) [#/Vol] 0 10*3/uL Normal 0-5 [facility] Comment on above: Performed By: #### L 500.2500, L101.9900, L100.0100, L501.6710 ####[facility] [address] [place], [address] Platelet mean volume (Bld) [Entitic vol] 9.8 fL Normal 6.2-12.0 [facility] Comment on above: Performed By: #### L 500.2500, L101.9900, L100.0100, L501.6710 ####[facility] [address] [place], [address] Platelets (Bld) [#/Vol] 249 10*3/uL Normal 150-450 [facility] Comment on above: Performed By: #### L 500.2500, L101.9900, L100.0100, L501.6710 ####[facility] [address] [place], [address] RBC (Bld) [#/Vol] 3.87 10*6/uL Low 4.2-5.4 [facility] Comment on above: Performed By: #### L 500.2500, L101.9900, L100.0100, L501.6710 ####[facility] [address] [place], [address] RDW SD 56.6 fl High 35.1-43.9 [facility] Comment on above: Performed By: #### L 500.2500, L101.9900, L100.0100, L501.6710 ####[facility] [address] [place], [address] WBC (Bld) [#/Vol] 5.0 10*3/uL Normal 4.4-11.0 [facility] Comment on above: Performed By: #### L 500.2500, L101.9900, L100.0100, L501.6710 ####[facility] [address] [place], [address] CNPNon 03-07-2024 CNPN Normal [facility] CRPon 03-07-2024 C-REACTIVE PROT 11.30 mg/L High 0.0-3.0 [facility] Comment on above: Result Comment: C-Re active Protein (CRP) provides useful information for thediagnosis, therapy and monitoring of inflammatory processesand associated diseases. For the evaluation of Relative Riskfor Cardiovascular Disease, a High Sensitivity CRP (HSCRP)should be ordered. Performed By: #### L 500.2500, L101.9900, L100.0100, L501.6710 ####[facility] [address] [place], [address] Emergency Department Summary on 03-07-2024 Emergency Department Summary Normal [facility] Erythrocyte Sed Rateon 03-07 SED RATE 17 mm/hr Normal 0-30 [facility] Comment on above: Performed By: #### L 500.2500, L101.9900, L100.0100, L501.6710 ####[facility] [address] [place], [address] Foot min 3 Viewson 4 Foot min 3 Views Normal [facility] H AND P Exam - Hospitaliston 03-07-2024 H&P Exam - Hospitalist Normal [facility] Basic Metabolic Profile (BMP )on 03-02-2024 BUN Normal 7-18 [facility] Comment on above: Result Comment: Canc elled via OM: Order cancelled - Patient discharged Performed By: #### L 500.2500 ####[facility] [address] [place], [address] BUN/CRE Normal 10-20 [facility] Comment on above: Result Comment: Canc elled via OM: Order cancelled - Patient discharged Performed By: #### L 500.2500 ####[facility] [address] [place], [address] CA,Total Normal 8.5-10.1 [facility] Comment on above: Result Comment: Canc elled via OM: Order cancelled - Patient discharged Performed By: #### L 500.2500 ####[facility] [address] [place], [address] CL Normal 98-107 [facility] Comment on above: Result Comment: Canc elled via OM: Order cancelled - Patient discharged Performed By: #### L 500.2500 ####[facility] [address] [place], [address] CO2 Normal 21.0-32.0 [facility] Comment on above: Result Comment: Canc elled via OM: Order cancelled - Patient discharged Performed By: #### L 500.2500 ####[facility] [address] [place], [address] CREAT,SERUM Normal 0.55-1.02 [facility] Comment on above: Result Comment: Canc elled via OM: Order cancelled - Patient discharged Performed By: #### L 500.2500 ####[facility] [address] [place], [address] EST GFR Normal >60 [facility] Comment on above: Result Comment: Canc elled via OM: Order cancelled - Patient discharged Performed By: #### L 500.2500 ####[facility] [address] [place], [address] EST GFR - AA Normal >60 [facility] Comment on above: Result Comment: Canc elled via OM: Order cancelled - Patient discharged Performed By: #### L 500.2500 ####[facility] [address] [place], [address] GAP Normal 5-15 [facility] Comment on above: Result Comment: Canc elled via OM: Order cancelled - Patient discharged Performed By: #### L 500.2500 ####[facility] [address] [place], [address] GLU Normal 74-106 [facility] Comment on above: Result Comment: Canc elled via OM: Order cancelled - Patient discharged Performed By: #### L 500.2500 ####[facility] [address] [place], [address] Potassium Normal 3.5-5.1 [facility] Comment on above: Result Comment: Canc elled via OM: Order cancelled - Patient discharged Performed By: #### L 500.2500 ####[facility] [address] [place], [address] Basic Metabolic Profile (BMP) Normal 136-145 [facility] Comment on above: Result Comment: Canc elled via OM: Order cancelled - Patient discharged Performed By: #### L 500.2500 ####[facility] [address] [place], [address] CBC W/Diff, Automatedon 11-0 Absolute Neut Normal 2.0-7.7 [facility] Comment on above: Result Comment: Canc elled via OM: Order cancelled - Patient discharged Performed By: #### L 100.0100 ####[facility] [address] [place], [address] HCT Normal 37-47 [facility] Comment on above: Result Comment: Canc elled via OM: Order cancelled - Patient discharged Performed By: #### L 100.0100 ####[facility] [address] [place], [address] HGB Normal 12.0-15.0 [facility] Comment on above: Result Comment: Canc elled via OM: Order cancelled - Patient discharged Performed By: #### L 100.0100 ####[facility] [address] [place], [address] MCH Normal 27.0-32.0 [facility] Comment on above: Result Comment: Canc elled via OM: Order cancelled - Patient discharged Performed By: #### L 100.0100 ####[facility] [address] [place], [address] MCHC Normal 32-36 [facility] Comment on above: Result Comment: Canc elled via OM: Order cancelled - Patient discharged Performed By: #### L 100.0100 ####[facility] [address] [place], [address] MCV Normal 81-99 [facility] Comment on above: Result Comment: Canc elled via OM: Order cancelled - Patient discharged Performed By: #### L 100.0100 ####[facility] [address] [place], [address] NEUT% Normal 47-70 [facility] Comment on above: Result Comment: Canc elled via OM: Order cancelled - Patient discharged Performed By: #### L 100.0100 ####[facility] [address] [place], [address] PLT Normal 150-450 [facility] Comment on above: Result Comment: Canc elled via OM: Order cancelled - Patient discharged Performed By: #### L 100.0100 ####[facility] [address] [place], [address] RBC Normal 4.2-5.4 [facility] Comment on above: Result Comment: Canc elled via OM: Order cancelled - Patient discharged Performed By: #### L 100.0100 ####[facility] [address] [place], [address] RDW CV Normal 11.6-14.6 [facility] Comment on above: Result Comment: Canc elled via OM: Order cancelled - Patient discharged Performed By: #### L 100.0100 ####[facility] [address] [place], [address] RDW SD Normal 35.1-43.9 [facility] Comment on above: Result Comment: Canc elled via OM: Order cancelled - Patient discharged Performed By: #### L 100.0100 ####[facility] [address] [place], [address] WBC Normal 4.4-11.0 [facility] Comment on above: Result Comment: Canc elled via OM: Order cancelled - Patient discharged Performed By: #### L 100.0100 ####[facility] [address] [place], [address] CTA Abd w/Runoff W/WO Contra ston 03-01-2024 CTA Abd w/Runoff W/WO Contrast Normal [facility] CNPNon 02-29-2024 CNPN Normal [facility] Basic Metabolic Profile (BMP )on 02-24-2024 BUN Normal - [facility] Comment on above: Result Comment: Canc elled via OM: Order cancelled - Patient discharged Performed By: #### L 500.2500 ####[facility] [address] [place], [address] BUN/CRE Normal - [facility] Comment on above: Result Comment: Canc elled via OM: Order cancelled - Patient discharged Performed By: #### L 500.2500 ####[facility] [address] [place], [address] CA,Total Normal 8.5-10.1 [facility] Comment on above: Result Comment: Canc elled via OM: Order cancelled - Patient discharged Performed By: #### L 500.2500 ####[facility] [address] [place], [address] CL Normal 98-107 [facility] Comment on above: Result Comment: Canc elled via OM: Order cancelled - Patient discharged Performed By: #### L 500.2500 ####[facility] [address] [place], [address] CO2 Normal 21.0-32.0 [facility] Comment on above: Result Comment: Canc elled via OM: Order cancelled - Patient discharged Performed By: #### L 500.2500 ####[facility] [address] [place], [address] CREAT,SERUM Normal 0.55-1.02 [facility] Comment on above: Result Comment: Canc elled via OM: Order cancelled - Patient discharged Performed By: #### L 500.2500 ####[facility] [address] [place], [address] EST GFR Normal >60 [facility] Comment on above: Result Comment: Canc elled via OM: Order cancelled - Patient discharged Performed By: #### L 500.2500 ####[facility] [address] [place], [address] EST GFR - AA Normal >60 [facility] Comment on above: Result Comment: Canc elled via OM: Order cancelled - Patient discharged Performed By: #### L 500.2500 ####[facility] [address] [place], [address] GAP Normal 5-15 [facility] Comment on above: Result Comment: Canc elled via OM: Order cancelled - Patient discharged Performed By: #### L 500.2500 ####[facility] [address] [place], [address] GLU Normal 74-106 [facility] Comment on above: Result Comment: Canc elled via OM: Order cancelled - Patient discharged Performed By: #### L 500.2500 ####[facility] [address] [place], [address] Potassium Normal 3.5-5.1 [facility] Comment on above: Result Comment: Canc elled via OM: Order cancelled - Patient discharged Performed By: #### L 500.2500 ####[facility] [address] [place], [address] Basic Metabolic Profile (BMP) Normal 136-145 [facility] Comment on above: Result Comment: Canc elled via OM: Order cancelled - Patient discharged Performed By: #### L 500.2500 ####[facility] [address] [place], [address] CBC W/Diff, Automatedon 10-2 Absolute Neut Normal 2.0-7.7 [facility] Comment on above: Result Comment: Canc elled via OM: Order cancelled - Patient discharged Performed By: #### L 100.0100 ####[facility] [address] [place], [address] HCT Normal 37-47 [facility] Comment on above: Result Comment: Canc elled via OM: Order cancelled - Patient discharged Performed By: #### L 100.0100 ####[facility] [address] [place], [address] HGB Normal 12.0-15.0 [facility] Comment on above: Result Comment: Canc elled via OM: Order cancelled - Patient discharged Performed By: #### L 100.0100 ####[facility] [address] [place], [address] MCH Normal 27.0-32.0 [facility] Comment on above: Result Comment: Canc elled via OM: Order cancelled - Patient discharged Performed By: #### L 100.0100 ####[facility] [address] [place], [address] MCHC Normal 32-36 [facility] Comment on above: Result Comment: Canc elled via OM: Order cancelled - Patient discharged Performed By: #### L 100.0100 ####[facility] [address] [place], [address] MCV Normal 81-99 [facility] Comment on above: Result Comment: Canc elled via OM: Order cancelled - Patient discharged Performed By: #### L 100.0100 ####[facility] [address] [place], [address] NEUT% Normal 47-70 [facility] Comment on above: Result Comment: Canc elled via OM: Order cancelled - Patient discharged Performed By: #### L 100.0100 ####[facility] [address] [place], [address] PLT Normal 150-450 [facility] Comment on above: Result Comment: Canc elled via OM: Order cancelled - Patient discharged Performed By: #### L 100.0100 ####[facility] [address] [place], [address] RBC Normal 4.2-5.4 [facility] Comment on above: Result Comment: Canc elled via OM: Order cancelled - Patient discharged Performed By: #### L 100.0100 ####[facility] [address] [place], [address] RDW CV Normal 11.6-14.6 [facility] Comment on above: Result Comment: Canc elled via OM: Order cancelled - Patient discharged Performed By: #### L 100.0100 ####[facility] [address] [place], [address] RDW SD Normal 35.1-43.9 [facility] Comment on above: Result Comment: Canc elled via OM: Order cancelled - Patient discharged Performed By: #### L 100.0100 ####[facility] [address] [place], [address] WBC Normal 4.4-11.0 [facility] Comment on above: Result Comment: Canc elled via OM: Order cancelled - Patient discharged Performed By: #### L 100.0100 ####[facility] [address] [place], [address] CNPNon 02-24-2024 CNPN Normal [facility] CBC W Auto Differential pane l (Bld)on 02-23-2024 Basophils (Bld) [#/Vol] 0.03 10*3/uL Normal <0.11 [facility] Comment on above: Order Comment: Speci men Type: BLOOD SPECIMENOrdering Facility: [facility] Address: [address] [place] [address] Performed By: #### 5 7021-8 ####[facility] LABCLIA [id number] [place] [address] [place] Basophils/100 WBC (Bld) 0.4 % Normal [facility] Comment on above: Order Comment: Speci men Type: BLOOD SPECIMENOrdering Facility: [facility] Address: [address] [place] [address] Performed By: #### 5 7021-8 ####[facility] LABCLIA [id number] [place] [address] [place] Differential cell count method Nom (Bld) Auto Normal [facility] Comment on above: Order Comment: Speci men Type: BLOOD SPECIMENOrdering Facility: [facility] Address: [address] [place] [address] Performed By: #### 5 7021-8 ####[facility] LABCLIA [id number] [place] [address] [place] Eosinophils (Bld) [#/Vol] 0.05 10*3/uL Normal <0.46 [facility] Comment on above: Order Comment: Speci men Type: BLOOD SPECIMENOrdering Facility: [facility] Address: [address] [place] [address] Performed By: #### 5 7021-8 ####[facility] LABCLIA [id number] [place] [address] [place] Eosinophils/100 WBC (Bld) 0.7 % Normal [facility] Comment on above: Order Comment: Speci men Type: BLOOD SPECIMENOrdering Facility: [facility] Address: [address] [place] [address] Performed By: #### 5 7021-8 ####[facility] LABCLIA [id number] [place] [address] [place] Erythrocyte distribution width (RBC) [Ratio] 16.3 % High 11.5-15.0 [facility] Comment on above: Order Comment: Speci men Type: BLOOD SPECIMENOrdering Facility: [facility] Address: [address] [place] [address] Performed By: #### 5 7021-8 ####[facility] LABCLIA [id number] [place] [address] [place] Hematocrit (Bld) [Volume fraction] 42.4 % Normal 36.0-46.0 [facility] Comment on above: Order Comment: Speci men Type: BLOOD SPECIMENOrdering Facility: [facility] Address: [address] [place] [address] Performed By: #### 5 7021-8 ####[facility] LABCLIA [id number] [place] [address] [place] Hemoglobin (Bld) [Mass/Vol] 13.5 g/dL Normal 11.5-15.5 [facility] Comment on above: Order Comment: Speci men Type: BLOOD SPECIMENOrdering Facility: [facility] Address: [address] [place] [address] Performed By: #### 5 7021-8 ####[facility] LABCLIA [id number] [place] [address] [place] Immature granulocytes (Bld) [#/Vol] 10*3/uL Normal <0.10 [facility] Comment on above: Order Comment: Speci men Type: BLOOD SPECIMENOrdering Facility: [facility] Address: [address] [place] [address] Performed By: #### 5 7021-8 ####[facility] LABCLIA [id number] [place] [address] [place] Immature granulocytes/100 WBC (Bld) 0.1 % Normal [facility] Comment on above: Order Comment: Speci men Type: BLOOD SPECIMENOrdering Facility: [facility] Address: [address] [place] [address] Performed By: #### 5 7021-8 ####[facility] LABCLIA [id number] [place] [address] [place] Lymphocytes (Bld) [#/Vol] 2.52 10*3/uL Normal 1.00-4.00 [facility] Comment on above: Order Comment: Speci men Type: BLOOD SPECIMENOrdering Facility: [facility] Address: [address] [place] [address] Performed By: #### 5 7021-8 ####[facility] LABCLIA [id number] [place] [address] [place] Lymphocytes/100 WBC (Bld) 36.2 % Normal [facility] Comment on above: Order Comment: Speci men Type: BLOOD SPECIMENOrdering Facility: [facility] Address: [address] [place] [address] Performed By: #### 5 7021-8 ####[facility] LABCLIA [id number] [place] [address] [place] MCH (RBC) [Entitic mass] 32.2 pg Normal 26.0-34.0 [facility] Comment on above: Order Comment: Speci men Type: BLOOD SPECIMENOrdering Facility: [facility] Address: [address] [place] [address] Performed By: #### 5 7021-8 ####[facility] LABCLIA [id number] [place] [address] [place] MCHC (RBC) [Mass/Vol] 31.8 g/dL Normal 30.5-36.0 [facility] Comment on above: Order Comment: Speci men Type: BLOOD SPECIMENOrdering Facility: [facility] Address: [address] [place] [address] Performed By: #### 5 7021-8 ####[facility] LABCLIA [id number] [place] [address] [place] MCV (RBC) [Entitic vol] 101.2 fL High 80.0-100.0 [facility] Comment on above: Order Comment: Speci men Type: BLOOD SPECIMENOrdering Facility: [facility] Address: [address] [place] [address] Performed By: #### 5 7021-8 ####[facility] LABCLIA [id number] [place] [address] [place] Monocytes (Bld) [#/Vol] 0.62 10*3/uL Normal <0.87 [facility] Comment on above: Order Comment: Speci men Type: BLOOD SPECIMENOrdering Facility: [facility] Address: [address] [place] [address] Performed By: #### 5 7021-8 ####[facility] LABIA [id number] [place] [address] [place] Monocytes/100 WBC (Bld) 8.9 % Normal [facility] Comment on above: Order Comment: Speci men Type: BLOOD SPECIMENOrdering Facility: [facility] Address: [address] [place] [address] Performed By: #### 5 7021-8 ####[facility] LABIA [id number] [place] [address] [place] Neutrophils (Bld) [#/Vol] 3.73 10*3/uL Normal 1.45-7.50 [facility] Comment on above: Order Comment: Speci men Type: BLOOD SPECIMENOrdering Facility: [facility] Address: [address] [place] [address] Performed By: #### 5 7021-8 ####[facility] LABCLIA [id number] [place] [address] [place] Neutrophils/100 WBC (Bld) 53.7 % Normal [facility] Comment on above: Order Comment: Speci men Type: BLOOD SPECIMENOrdering Facility: [facility] Address: [address] [place] [address] Performed By: #### 5 7021-8 ####[facility] LABIA [id number] [place] [address] [place] Nucleated RBC (Bld) [#/Vol] 10*3/uL Normal <0.01 [facility] Comment on above: Order Comment: Speci men Type: BLOOD SPECIMENOrdering Facility: [facility] Address: [address] [place] [address] Performed By: #### 5 7021-8 ####[facility] LABIA [id number] [place] [address] [place] Nucleated RBC/100 WBC (Bld) [Ratio] 0.0 /100 WBC Normal [facility] Comment on above: Order Comment: Speci men Type: BLOOD SPECIMENOrdering Facility: [facility] Address: [address] [place] [address] Performed By: #### 5 7021-8 ####[facility] LABIA [id number] [place] [address] [place] Platelet mean volume (Bld) [Entitic vol] 13.0 fL High 9.0-12.7 [facility] Comment on above: Order Comment: Speci men Type: BLOOD SPECIMENOrdering Facility: [facility] Address: [address] [place] [address] Performed By: #### 5 7021-8 ####[facility] LABIA [id number] [place] [address] [place] Platelets (Bld) [#/Vol] 237 10*3/uL Normal 150-400 [facility] Comment on above: Order Comment: Speci men Type: BLOOD SPECIMENOrdering Facility: [facility] Address: [address] [place] [address] Performed By: #### 5 7021-8 ####[facility] LABIA [id number] [address] [address] [place] RBC (Bld) [#/Vol] 4.19 10*6/uL Normal 3.90-5.20 [facility] Comment on above: Order Comment: Speci men Type: BLOOD SPECIMENOrdering Facility: [facility] Address: [address] [place] [address] Performed By: #### 5 7021-8 ####[facility] [id number] [address] [address] [place] WBC (Bld) [#/Vol] 6.96 10*3/uL Normal 3.70-11.00 [facility] Comment on above: Order Comment: Speci men Type: BLOOD SPECIMENOrdering Facility: [facility] Address: [address] [place] [address] Performed By: #### 5 7021-8 ####[facility] [id number] [place] [id number] [place] CNOVon 02-23-2024 CNOV Normal [facility] CNPNon 02-23-2024 CNPN Normal [facility] Comprehensive metabolic 2000 panelon 02-23-2024 Albumin [Mass/Vol] 4.5 g/dL Normal 3.9-4.9 [facility] Comment on above: Order Comment: Speci men Type: BLOOD SPECIMENOrdering Facility: [facility] Address: [address] [place] [address] Performed By: #### 2 4323-8 ####[facility] [id number] [place] [id number] [place] ALP [Catalytic activity/Vol] 58 U/L Normal 34-123 [facility] Comment on above: Order Comment: Speci men Type: BLOOD SPECIMENOrdering Facility: [facility] Address: [address] [place] [address] Performed By: #### 2 4323-8 ####[facility] LABCLIA [id number] [address] [address] [place] ALT [Catalytic activity/Vol] 23 U/L Normal 7-38 [facility] Comment on above: Order Comment: Speci men Type: BLOOD SPECIMENOrdering Facility: [facility] Address: [address] [place] [address] Performed By: #### 2 4323-8 ####[facility] LABCLIA [id number] [place] [address] [place] Anion gap [Moles/Vol] 14 mmol/L Normal 8-15 [facility] Comment on above: Order Comment: Speci men Type: BLOOD SPECIMENOrdering Facility: [facility] Address: [address] [place] [address] Performed By: #### 2 4323-8 ####[facility] LABCLIA [id number] [place] [address] [place] AST [Catalytic activity/Vol] 21 U/L Normal 13-35 [facility] Comment on above: Order Comment: Speci men Type: BLOOD SPECIMENOrdering Facility: [facility] Address: [address] [place] [address] Performed By: #### 2 4323-8 ####[facility] LABCLIA [id number] [place] [address] [place] Bilirubin [Mass/Vol] 0.4 mg/dL Normal 0.2-1.3 [facility] Comment on above: Order Comment: Speci men Type: BLOOD SPECIMENOrdering Facility: [facility] Address: [address] [place] [address] Performed By: #### 2 4323-8 ####[facility] LABCLIA [id number] [place] [id number] [place] Calcium [Mass/Vol] 10.1 mg/dL Normal 8.5-10.2 [facility] Comment on above: Order Comment: Speci men Type: BLOOD SPECIMENOrdering Facility: [facility] Address: [address] [place] [address] Performed By: #### 2 4323-8 ####[facility] LABCLIA [id number] [place] [address] [place] Chloride [Moles/Vol] 95 mmol/L Low 98-107 [facility] Comment on above: Order Comment: Speci men Type: BLOOD SPECIMENOrdering Facility: [facility] Address: [address] [place] [address] Performed By: #### 2 4323-8 ####[facility] LABCLIA [id number] [place] [address] [place] CO2 [Moles/Vol] 24 mmol/L Normal 22-30 [facility] Comment on above: Order Comment: Speci men Type: BLOOD SPECIMENOrdering Facility: [facility] Address: [address] [place] [address] Performed By: #### 2 4323-8 ####[facility] LABCLIA [id number] [place] [address] [place] Creatinine [Mass/Vol] 1.31 mg/dL High 0.58-0.96 [facility] Comment on above: Order Comment: Speci men Type: BLOOD SPECIMENOrdering Facility: [facility] Address: [address] [place] [address] Performed By: #### 2 4323-8 ####[facility] LABCLIA [id number] [place] [address] [place] Creatinine and Glomerular filtration rate.predicted panel (S/P/Bld) 40 mL/min/1.73m??? Low >=60 [facility] Comment on above: Order Comment: Speci men Type: BLOOD SPECIMENOrdering Facility: [facility] Address: [address] [place] [address] Result Comment: Kimberley mated Glomerular Filtration Rate [...] #### 2 4323-8 ####[facility] LABCLIA [id number] [place] [address] [place] Glucose [Mass/Vol] 133 mg/dL High 74-99 [facility] Comment on above: Order Comment: Miguel cunningham Type: BLOOD SPECIMENOrdering Facility: [facility] Address: [address] [place] [address] Result Comment: The [place] [employer] (ADA) provides guidance for cutoff [...] Standards of Medical Care in Diabetes 2016, [place] [employer]. Diabetes Care. 2016.39(Suppl 1). Performed By: #### 2 4323-8 ####[facility] LABCLIA [id number] [place] [address] [place] Potassium [Moles/Vol] 4.7 mmol/L Normal 3.7-5.1 [facility] Comment on above: Order Comment: Miguel cunningham Type: BLOOD SPECIMENOrdering Facility: [facility] Address: [address] [place] [address] Performed By: #### 2 4323-8 ####[facility] LABCLIA [id number] [place] [address] [place] Protein [Mass/Vol] 8.0 g/dL Normal 6.3-8.0 [facility] Comment on above: Order Comment: Speci men Type: BLOOD SPECIMENOrdering Facility: [facility] Address: [address] [place] [address] Performed By: #### 2 4323-8 ####[facility] LABCLIA [id number] [place] [address] [place] Sodium [Moles/Vol] 133 mmol/L Low 136-144 [facility] Comment on above: Order Comment: Speci men Type: BLOOD SPECIMENOrdering Facility: [facility] Address: [address] [place] [address] Performed By: #### 2 4323-8 ####[facility] LABCLIA [id number] [place] [address] [place] Urea nitrogen [Mass/Vol] 43 mg/dL High - [facility] Comment on above: Order Comment: Speci men Type: BLOOD SPECIMENOrdering Facility: [facility] Address: [address] [place] [address] Performed By: #### 2 4323-8 ####[facility] LABCLIA [id number] [place] [address] [place] Basic Metabolic Profile (BMP )on 02-17-2024 BUN Normal 11-16 [facility] Comment on above: Result Comment: Canc elled via OM: Order cancelled - Patient discharged Performed By: #### L 500.2500 ####[facility] [address] [place], [place], [id number] BUN/CRE Normal 02-18 [facility] Comment on above: Result Comment: Canc elled via OM: Order cancelled - Patient discharged Performed By: #### L 500.2500 ####[facility] [address] [place], [address] CA,Total Normal 8.5-10.1 [facility] Comment on above: Result Comment: Canc elled via OM: Order cancelled - Patient discharged Performed By: #### L 500.2500 ####[facility] [address] [place], [address] CL Normal 98-107 [facility] Comment on above: Result Comment: Canc elled via OM: Order cancelled - Patient discharged Performed By: #### L 500.2500 ####[facility] [address] [place], [address] CO2 Normal 21.0-32.0 [facility] Comment on above: Result Comment: Canc elled via OM: Order cancelled - Patient discharged Performed By: #### L 500.2500 ####[facility] [address] [place], [address] CREAT,SERUM Normal 0.55-1.02 [facility] Comment on above: Result Comment: Canc elled via OM: Order cancelled - Patient discharged Performed By: #### L 500.2500 ####[facility] [address] [place], [address] EST GFR Normal >60 [facility] Comment on above: Result Comment: Canc elled via OM: Order cancelled - Patient discharged Performed By: #### L 500.2500 ####[facility] [address] [place], [address] EST GFR - AA Normal >60 [facility] Comment on above: Result Comment: Canc elled via OM: Order cancelled - Patient discharged Performed By: #### L 500.2500 ####[facility] [address] [place], [address] GAP Normal 5-15 [facility] Comment on above: Result Comment: Canc elled via OM: Order cancelled - Patient discharged Performed By: #### L 500.2500 ####[facility] [address] [place], [address] GLU Normal 74-106 [facility] Comment on above: Result Comment: Canc elled via OM: Order cancelled - Patient discharged Performed By: #### L 500.2500 ####[facility] [address] [place], [address] Potassium Normal 3.5-5.1 [facility] Comment on above: Result Comment: Canc elled via OM: Order cancelled - Patient discharged Performed By: #### L 500.2500 ####[facility] [address] [place], [address] Basic Metabolic Profile (BMP) Normal 136-145 [facility] Comment on above: Result Comment: Canc elled via OM: Order cancelled - Patient discharged Performed By: #### L 500.2500 ####[facility] [address] [place], [address] CBC W/Diff, Automatedon 10-1 Absolute Neut Normal 2.0-7.7 [facility] Comment on above: Result Comment: Canc elled via OM: Order cancelled - Patient discharged Performed By: #### L 100.0100 ####[facility] [address] [place], [address] HCT Normal 37-47 [facility] Comment on above: Result Comment: Canc elled via OM: Order cancelled - Patient discharged Performed By: #### L 100.0100 ####[facility] [address] [place], [address] HGB Normal 12.0-15.0 [facility] Comment on above: Result Comment: Canc elled via OM: Order cancelled - Patient discharged Performed By: #### L 100.0100 ####[facility] [address] [place], [address] MCH Normal 27.0-32.0 [facility] Comment on above: Result Comment: Canc elled via OM: Order cancelled - Patient discharged Performed By: #### L 100.0100 ####[facility] [address] [place], [address] MCHC Normal 32-36 [facility] Comment on above: Result Comment: Canc elled via OM: Order cancelled - Patient discharged Performed By: #### L 100.0100 ####[facility] [address] [place], [address] MCV Normal 81-99 [facility] Comment on above: Result Comment: Canc elled via OM: Order cancelled - Patient discharged Performed By: #### L 100.0100 ####[facility] [address] [place], [address] NEUT% Normal 47-70 [facility] Comment on above: Result Comment: Canc elled via OM: Order cancelled - Patient discharged Performed By: #### L 100.0100 ####[facility] [address] [place], [address] PLT Normal 150-450 [facility] Comment on above: Result Comment: Canc elled via OM: Order cancelled - Patient discharged Performed By: #### L 100.0100 ####[facility] [address] [place], [address] RBC Normal 4.2-5.4 [facility] Comment on above: Result Comment: Canc elled via OM: Order cancelled - Patient discharged Performed By: #### L 100.0100 ####[facility] [address] [place], [address] RDW CV Normal 11.6-14.6 [facility] Comment on above: Result Comment: Canc elled via OM: Order cancelled - Patient discharged Performed By: #### L 100.0100 ####[facility] [address] [place], [address] RDW SD Normal 35.1-43.9 [facility] Comment on above: Result Comment: Canc elled via OM: Order cancelled - Patient discharged Performed By: #### L 100.0100 ####[facility] [address] [place], [address] WBC Normal 4.4-11.0 [facility] Comment on above: Result Comment: Canc elled via OM: Order cancelled - Patient discharged Performed By: #### L 100.0100 ####[facility] [address] [place], [address] Surgery Visit Reporton 02-14 Surgery Visit Report Normal [facility] CNPNon 02-13-2024 CNPN Normal [facility] Basic Metabolic Profile (BMP )on 02-10-2024 BUN Normal 7-18 [facility] Comment on above: Result Comment: Canc elled via OM: Order cancelled - Patient discharged Performed By: #### L 500.2500 ####[facility] [address] [place], [address] BUN/CRE Normal 10-20 [facility] Comment on above: Result Comment: Canc elled via OM: Order cancelled - Patient discharged Performed By: #### L 500.2500 ####[facility] [address] [place], [address] CA,Total Normal 8.5-10.1 [facility] Comment on above: Result Comment: Canc elled via OM: Order cancelled - Patient discharged Performed By: #### L 500.2500 ####[facility] [address] [place], [address] CL Normal 98-107 [facility] Comment on above: Result Comment: Canc elled via OM: Order cancelled - Patient discharged Performed By: #### L 500.2500 ####[facility] [address] [place], [address] CO2 Normal 21.0-32.0 [facility] Comment on above: Result Comment: Canc elled via OM: Order cancelled - Patient discharged Performed By: #### L 500.2500 ####[facility] [address] [place], [address] CREAT,SERUM Normal 0.55-1.02 [facility] Comment on above: Result Comment: Canc elled via OM: Order cancelled - Patient discharged Performed By: #### L 500.2500 ####[facility] [address] [place], [address] EST GFR Normal >60 [facility] Comment on above: Result Comment: Canc elled via OM: Order cancelled - Patient discharged Performed By: #### L 500.2500 ####[facility] [address] [place], [address] EST GFR - AA Normal >60 [facility] Comment on above: Result Comment: Canc elled via OM: Order cancelled - Patient discharged Performed By: #### L 500.2500 ####[facility] [address] [place], [address] GAP Normal 5-15 [facility] Comment on above: Result Comment: Canc elled via OM: Order cancelled - Patient discharged Performed By: #### L 500.2500 ####[facility] [address] [place], [address] GLU Normal 74-106 [facility] Comment on above: Result Comment: Canc elled via OM: Order cancelled - Patient discharged Performed By: #### L 500.2500 ####[facility] [address] [place], [address] Potassium Normal 3.5-5.1 [facility] Comment on above: Result Comment: Canc elled via OM: Order cancelled - Patient discharged Performed By: #### L 500.2500 ####[facility] [address] [place], [address] Basic Metabolic Profile (BMP) Normal 136-145 [facility] Comment on above: Result Comment: Canc elled via OM: Order cancelled - Patient discharged Performed By: #### L 500.2500 ####[facility] [address] [place], [address] CBC W/Diff, Automatedon 10-1 Absolute Neut Normal 2.0-7.7 [facility] Comment on above: Result Comment: Canc elled via OM: Order cancelled - Patient discharged Performed By: #### L 100.0100 ####[facility] [address] [place], [address] HCT Normal 37-47 [facility] Comment on above: Result Comment: Canc elled via OM: Order cancelled - Patient discharged Performed By: #### L 100.0100 ####[facility] [address] [place], [address] HGB Normal 12.0-15.0 [facility] Comment on above: Result Comment: Canc elled via OM: Order cancelled - Patient discharged Performed By: #### L 100.0100 ####[facility] [address] [place], [address] MCH Normal 27.0-32.0 [facility] Comment on above: Result Comment: Canc elled via OM: Order cancelled - Patient discharged Performed By: #### L 100.0100 ####[facility] [address] [place], [address] MCHC Normal 32-36 [facility] Comment on above: Result Comment: Canc elled via OM: Order cancelled - Patient discharged Performed By: #### L 100.0100 ####[facility] [address] [place], [address] MCV Normal 81-99 [facility] Comment on above: Result Comment: Canc elled via OM: Order cancelled - Patient discharged Performed By: #### L 100.0100 ####[facility] [address] [place], [address] NEUT% Normal 47-70 [facility] Comment on above: Result Comment: Canc elled via OM: Order cancelled - Patient discharged Performed By: #### L 100.0100 ####[facility] [address] [place], [address] PLT Normal 150-450 [facility] Comment on above: Result Comment: Canc elled via OM: Order cancelled - Patient discharged Performed By: #### L 100.0100 ####[facility] [address] [place], [address] RBC Normal 4.2-5.4 [facility] Comment on above: Result Comment: Canc elled via OM: Order cancelled - Patient discharged Performed By: #### L 100.0100 ####[facility] [address] [place], [address] RDW CV Normal 11.6-14.6 [facility] Comment on above: Result Comment: Canc elled via OM: Order cancelled - Patient discharged Performed By: #### L 100.0100 ####[facility] [address] [place], [address] RDW SD Normal 35.1-43.9 [facility] Comment on above: Result Comment: Canc elled via OM: Order cancelled - Patient discharged Performed By: #### L 100.0100 ####[facility] [address] [place], [address] WBC Normal 4.4-11.0 [facility] Comment on above: Result Comment: Canc elled via OM: Order cancelled - Patient discharged Performed By: #### L 100.0100 ####[facility] [address] [place], [address] CNPNon 10-10-2024 CNPN Normal [facility] Ankle Brachial Indexon 02-07 Ankle Brachial Index Normal [facility] Bedside Glucoseon 02-08-2024 FINGERSTICK GLU 122 mg/dL High 74-106 [facility] Comment on above: Result Comment: LEVI GEMENT OF PATIENT CARE PER NURSING PROTOCOL Performed By: #### L 501.080 ####[facility] [address] [place], [address] CNPNon 02-08-2024 CNPN Normal [facility] US Art Duplex Unilat Lower E xton 02-08-2024 US Art Duplex Unilat Lower Ext Normal [facility] Bedside Glucoseon 02-07-2024 FINGER[place]ICK GLU 145 mg/dL High 74-106 [facility] Comment on above: Result Comment: LEVI GEMENT OF PATIENT CARE PER NURSING PROTOCOL Performed By: #### L 501.080 ####[facility] [address], [address] COVID 19 AG RAPID (RN ETHEL T)on 02-07-2024 SARS-CoV-2 (COVID-19) RNA MARCOS+probe Ql (Unsp spec) Normal [facility] Comment on above: Performed By: #### M 100.505 ####[facility] [address], [address] Bedside Glucoseon 02-06-2024 FINGERSTICK GLU 142 mg/dL High 74-106 [facility] Comment on above: Result Comment: LEVI GEMENT OF PATIENT CARE PER NURSING PROTOCOL Performed By: #### L 501.080 ####[facility] [address] [place], [address] Bedside Glucoseon 02-05-2024 FINGERSTICK GLU 133 mg/dL High 74-106 [facility] Comment on above: Result Comment: LEVI GEMENT OF PATIENT CARE PER NURSING PROTOCOL Performed By: #### L 501.080 ####[facility] [address] [place], [address] Bedside Glucoseon 02-04-2024 FINGERSTICK GLU 134 mg/dL High 74-106 [facility] Comment on above: Result Comment: LEVI HYDE OF PATIENT CARE PER NURSING PROTOCOL Performed By: #### L 501.080 ####[facility] [address] [place], [address] Basic Metabolic Profile (BMP )on 02-03-2024 BUN/CRE 56.5 RATIO High 10-20 [facility] Comment on above: Performed By: #### L 500.2500 ####[facility] [address] [place], [address] CA,Total 9.4 mg/dL Normal 8.5-10.1 [facility] Comment on above: Performed By: #### L 500.2500 ####[facility] [address] [place], [address] Chloride [Moles/Vol] 102 mmol/L Normal 98-107 [facility] Comment on above: Performed By: #### L 500.2500 ####[facility] [address] [place], [address] CO2 [Moles/Vol] 26.0 mmol/L Normal 21.0-32.0 [facility] Comment on above: Performed By: #### L 500.2500 ####[facility] [address] [place], [address] Creatinine [Mass/Vol] 1.08 mg/dL High 0.55-1.02 [facility] Comment on above: Result Comment: The validity of the calculated GFR GFRAA in patients over70 years has not been determined. Clinical correlation isessential. Performed By: #### L 500.2500 ####[facility] [address] [place], [address] ECRCL 35.51 ml/min Normal [facility] Comment on above: Performed By: #### L 500.2500 ####[facility] [address] [place], [address] EST GFR - AA 62 mL/min Normal >60 [facility] Comment on above: Result Comment: Afri can Sudanese GFR Calc Performed By: #### L 500.2500 ####[facility] [address] [place], [address] GAP 8 Normal 5-15 [facility] Comment on above: Performed By: #### L 500.2500 ####[facility] [address] [place], [address] GFR/1.73 sq M.predicted among non-blacks MDRD (S/P/Bld) [Vol rate/Area] 51 mL/min/{1.73_m2} Low >60 [facility] Comment on above: Result Comment: Non- GFR Calc Performed By: #### L 500.2500 ####[facility] [address] [place], [address] Glucose [Mass/Vol] 134 mg/dL High 74-106 [facility] Comment on above: Result Comment: Fast ing Glucose result greater than or equal to 126 mg/dLsuggests DIABETES MELLITUS per A.D.A. criteria. Performed By: #### L 500.2500 ####[facility] [address] [place], [address] Potassium [Moles/Vol] 3.8 mmol/L Normal 3.5-5.1 [facility] Comment on above: Performed By: #### L 500.2500 ####[facility] [address] [place], [address] Sodium [Moles/Vol] 135 mmol/L Low 136-145 [facility] Comment on above: Performed By: #### L 500.2500 ####[facility] [address] [place], [address] Urea nitrogen [Mass/Vol] 61 mg/dL High 7-18 [facility] Comment on above: Performed By: #### L 500.2500 ####[facility] [address] [place], [address] Bedside Glucoseon 02-03-2024 FINGERSTICK GLU 115 mg/dL High 74-106 [facility] Comment on above: Result Comment: LEVI GEMENT OF PATIENT CARE PER NURSING PROTOCOL Performed By: #### L 501.080 ####[facility] [address] [place], [address] CBC W/Diff, Automatedon 10-0 Anisocytosis Ql (Bld) 1+ Normal [facility] Comment on above: Performed By: #### L 100.0100 ####[facility] [address] [place], [address] Bedside Glucoseon 02-02-2024 FINGERSTICK GLU 111 mg/dL High [facility]106 [facility] Comment on above: Result Comment: LEVI GEMENT OF PATIENT CARE PER NURSING PROTOCOL Performed By: #### L 501.080 ####[facility] [address] [place], [address] Bedside Glucoseon 02-01-2024 FINGERSTICK GLU 129 mg/dL High [address] [place] [address] Comment on above: Result Comment: LEVI GEMENT OF PATIENT CARE PER NURSING PROTOCOL Performed By: #### L 501.080 ####[facility] [address] [place], [address] Bedside Glucoseon 01-31-2024 FINGERSTICK GLU 116 mg/dL High [facility]106 [facility] Comment on above: Result Comment: LEVI GEMENT OF PATIENT CARE PER NURSING PROTOCOL Performed By: #### L 501.080 ####[facility] [address] [place], [address] COVID 19 AG RAPID (RN COLLEC T)on 01-31-2024 SARS-CoV-2 (COVID-19) RNA MARCOS+probe Ql (Unsp spec) Normal [facility] Comment on above: Performed By: #### M 100.505 ####[facility] [address] [place], [address] Bedside Glucoseon 01-30-2024 FINGERSTICK GLU 126 mg/dL High 74-106 [facility] Comment on above: Result Comment: LEVI GEMENT OF PATIENT CARE PER NURSING PROTOCOL Performed By: #### L 501.080 ####[facility] [address] [place], [address] Bedside Glucoseon 01-29-2024 FINGERSTICK GLU 120 mg/dL High 74-106 [facility] Comment on above: Result Comment: LEVI GEMENT OF PATIENT CARE PER NURSING PROTOCOL Performed By: #### L 501.080 ####[facility] [address] [place], [address] Potassiumon 01-29-2024 Potassium [Moles/Vol] 4.2 mmol/L Normal 3.5-5.1 [facility] Comment on above: Result Comment: Slig ht Hemolysis, Result may be falsely increased. Performed By: #### L 501.5600 ####[facility] [address] [place], [address] Stool Occult Blood iFOBon STOB Negative Normal [facility] Comment on above: Performed By: #### M 100.7900 ####[facility] [address] [place], [address] BNP,B-Type NATRIURETIC PEPTI Juvenal 01-28-2024 Natriuretic peptide B (Bld) [Mass/Vol] 458.1 pg/mL High 0-100 [facility] Comment on above: Performed By: #### L 503.6623 ####[facility] [address] [place], [address] Basic Metabolic Profile (BMP )on 01-28-2024 BUN/CRE 24.0 RATIO High 10-20 [facility] Comment on above: Performed By: #### L 501.5200, L500.2500, L100.0100, L500.3400 ####[facility] [address] [place], [address] CA,Total 9.2 mg/dL Normal 8.5-10.1 [facility] Comment on above: Performed By: #### L 501.5200, L500.2500, L100.0100, L500.3400 ####[facility] [address] [place], [address] Chloride [Moles/Vol] 101 mmol/L Normal 98-107 [facility] Comment on above: Performed By: #### L 501.5200, L500.2500, L100.0100, L500.3400 ####[facility] [address] [place], [address] CO2 [Moles/Vol] 28.0 mmol/L Normal 21.0-32.0 [facility] Comment on above: Performed By: #### L 501.5200, L500.2500, L100.0100, L500.3400 ####[facility] [address] [place], [address] Creatinine [Mass/Vol] 0.92 mg/dL Normal 0.55-1.02 [facility] Comment on above: Result Comment: The validity of the calculated GFR GFRAA in patients over70 years has not been determined. Clinical correlation isessential. Performed By: #### L 501.5200, L500.2500, L100.0100, L500.3400 ####[facility] [address] [place], [address] ECRCL 41.82 ml/min Normal [facility] Comment on above: Performed By: #### L 501.5200, L500.2500, L100.0100, L500.3400 ####[facility] [address] [place], [address] EST GFR - AA 75 mL/min Normal >60 [facility] Comment on above: Result Comment: Afri can Sudanese GFR Calc Performed By: #### L 501.5200, L500.2500, L100.0100, L500.3400 ####[facility] [address] [place], [address] GAP 8 Normal 5-15 [facility] Comment on above: Performed By: #### L 501.5200, L500.2500, L100.0100, L500.3400 ####[facility] [address] [place], [address] GFR/1.73 sq M.predicted among non-blacks MDRD (S/P/Bld) [Vol rate/Area] 62 mL/min/{1.73_m2} Normal >60 [facility] Comment on above: Result Comment: Non- GFR Calc Performed By: #### L 501.5200, L500.2500, L100.0100, L500.3400 ####[facility] [address] [place], [address] Glucose [Mass/Vol] 110 mg/dL High 74-106 [facility] Comment on above: Result Comment: Fast ing Glucose result from 100 to 125 mg/dLsuggests IMPAIRED HOMEOSTASIS per A.D.A. criteria. Performed By: #### L 501.5200, L500.2500, L100.0100, L500.3400 ####[facility] [address] [place], [address] Potassium [Moles/Vol] 3.0 mmol/L Low 3.5-5.1 [facility] Comment on above: Performed By: #### L 501.5200, L500.2500, L100.0100, L500.3400 ####[facility] [address] [place], [address] Sodium [Moles/Vol] 137 mmol/L Normal 136-145 [facility] Comment on above: Performed By: #### L 501.5200, L500.2500, L100.0100, L500.3400 ####[facility] [address] [place], [address] Urea nitrogen [Mass/Vol] 22 mg/dL High 7-18 [facility] Comment on above: Performed By: #### L 501.5200, L500.2500, L100.0100, L500.3400 ####[facility] [address] [place], [address] Bedside Glucoseon 01-28-2024 FINGERSTICK GLU 119 mg/dL High 74-106 [facility] Comment on above: Result Comment: LEVI HYDE OF PATIENT CARE PER NURSING PROTOCOL Performed By: #### L 501.080 ####[facility] [address] [place], [address] CBC W/Diff, Automatedon 01-01 Absolute Lymph 1.26 X10 3/uL Normal 0.83-4.51 [facility] Comment on above: Performed By: #### L 501.5200, L500.2500, L100.0100, L500.3400 ####[facility] [address] [place], [address] Absolute Neut 3.2 X10 3/uL Normal 2.0-7.7 [facility] Comment on above: Performed By: #### L 501.5200, L500.2500, L100.0100, L500.3400 ####[facility] [address] [place], [address] Basophils/100 WBC (Bld) 0.9 % Normal 0-1 [facility] Comment on above: Performed By: #### L 501.5200, L500.2500, L100.0100, L500.3400 ####[facility] [address] [place], [address] Eosinophils/100 WBC (Bld) 4.1 % Normal 0-5 [facility] Comment on above: Performed By: #### L 501.5200, L500.2500, L100.0100, L500.3400 ####[facility] [address] [place], [address] Erythrocyte distribution width (RBC) [Ratio] 16.7 % High 11.6-14.6 [facility] Comment on above: Performed By: #### L 501.5200, L500.2500, L100.0100, L500.3400 ####[facility] [address] [place], [address] Hematocrit (Bld) [Volume fraction] 30.6 % Low 37-47 [facility] Comment on above: Performed By: #### L 501.5200, L500.2500, L100.0100, L500.3400 ####[facility] [address] [place], [address] Hemoglobin (Bld) [Mass/Vol] 9.6 g/dL Low 12.0-15.0 [facility] Comment on above: Performed By: #### L 501.5200, L500.2500, L100.0100, L500.3400 ####[facility] [address] [place], [address] IG% 0.600 Normal 0.0-0.9 [facility] Comment on above: Result Comment: IG% - Immature Granulocytes (promyelocytes, myelocytes andmetamyelocytes) > 1% indicates that a LEFT SHIFT is Present. Performed By: #### L 501.5200, L500.2500, L100.0100, L500.3400 ####[facility] [address] [place], [address] Lymphocytes/100 WBC (Bld) 23.5 % Normal 19-41 [facility] Comment on above: Performed By: #### L 501.5200, L500.2500, L100.0100, L500.3400 ####[facility] [address] [place], [address] MCH (RBC) [Entitic mass] 30.7 pg Normal 27.0-32.0 [facility] Comment on above: Performed By: #### L 501.5200, L500.2500, L100.0100, L500.3400 ####[facility] [address] [place], [address] MCHC (RBC) [Mass/Vol] 31.4 g/dL Low 32-36 [facility] Comment on above: Performed By: #### L 501.5200, L500.2500, L100.0100, L500.3400 ####[facility] [address] [place], [address] MCV (RBC) [Entitic vol] 97.8 fL Normal 81-99 [facility] Comment on above: Performed By: #### L 501.5200, L500.2500, L100.0100, L500.3400 ####[facility] [address] [place], [address] Monocytes/100 WBC (Bld) 11.2 % High 0-10 [facility] Comment on above: Performed By: #### L 501.5200, L500.2500, L100.0100, L500.3400 ####[facility] [address] [place], [address] Neutrophils/100 WBC (Bld) 59.7 % Normal 47-70 [facility] Comment on above: Performed By: #### L 501.5200, L500.2500, L100.0100, L500.3400 ####[facility] [address] [place], [address] Nucleated RBC (Bld) [#/Vol] 0 10*3/uL Normal 0-5 [facility] Comment on above: Performed By: #### L 501.5200, L500.2500, L100.0100, L500.3400 ####[facility] [address] [place], [address] Platelet mean volume (Bld) [Entitic vol] 10.0 fL Normal 6.2-12.0 [facility] Comment on above: Performed By: #### L 501.5200, L500.2500, L100.0100, L500.3400 ####[facility] [address] [place], [address] Platelets (Bld) [#/Vol] 256 10*3/uL Normal 150-450 [facility] Comment on above: Performed By: #### L 501.5200, L500.2500, L100.0100, L500.3400 ####[facility] [address] [place], [address] RBC (Bld) [#/Vol] 3.13 10*6/uL Low 4.2-5.4 [facility] Comment on above: Performed By: #### L 501.5200, L500.2500, L100.0100, L500.3400 ####[facility] [address] [place], [address] RDW SD 58.1 fl High 35.1-43.9 [facility] Comment on above: Performed By: #### L 501.5200, L500.2500, L100.0100, L500.3400 ####[facility] [address] [place], [address] WBC (Bld) [#/Vol] 5.4 10*3/uL Normal 4.4-11.0 [facility] Comment on above: Performed By: #### L 501.5200, L500.2500, L100.0100, L500.3400 ####[facility] [address] [place], [address] Liver Profileon 01-28-2024 Albumin [Mass/Vol] 2.8 g/dL Low 3.2-5.0 [facility] Comment on above: Performed By: #### L 501.5200, L500.2500, L100.0100, L500.3400 ####[facility] [address] [place], [address] ALK P 65 U/L Normal 45-117 [facility] Comment on above: Performed By: #### L 501.5200, L500.2500, L100.0100, L500.3400 ####[facility] [address] [place], [address] ALT [Catalytic activity/Vol] 42 U/L Normal 13-56 [facility] Comment on above: Performed By: #### L 501.5200, L500.2500, L100.0100, L500.3400 ####[facility] [address] [place], [address] AST [Catalytic activity/Vol] 30 U/L Normal 15-37 [facility] Comment on above: Performed By: #### L 501.5200, L500.2500, L100.0100, L500.3400 ####[facility] [address] [place], [address] Bilirubin [Mass/Vol] 0.70 mg/dL Normal 0.20-1.00 [facility] Comment on above: Result Comment: For patients on eltrombopag therapy, use of Dimension [place] TBIL is not recommended. Performed By: #### L 501.5200, L500.2500, L100.0100, L500.3400 ####[facility] [address] [place], [address] Bilirubin.direct [Mass/Vol] 0.20 mg/dL Normal 0.00-0.30 [facility] Comment on above: Performed By: #### L 501.5200, L500.2500, L100.0100, L500.3400 ####[facility] [address] [place], [address] Globulin (S) [Mass/Vol] 3.9 g/dL Normal 2.2-4.2 [facility] Comment on above: Performed By: #### L 501.5200, L500.2500, L100.0100, L500.3400 ####[facility] [address] [place], [address] T PROT 6.7 g/dL Normal 6.4-8.2 [facility] Comment on above: Performed By: #### L 501.5200, L500.2500, L100.0100, L500.3400 ####[facility] [address] [place], [address] Magnesiumon 01-28-2024 Magnesium [Mass/Vol] 1.7 mg/dL Normal 1.6-2.6 [facility] Comment on above: Performed By: #### L 501.5200, L500.2500, L100.0100, L500.3400 ####[facility] [address] [place], [address] Basic Metabolic Profile (BMP )on 01-25-2024 BUN/CRE 21.0 RATIO High 10-20 [facility] Comment on above: Performed By: #### L 100.0500, L500.2500 ####[facility] [address] [place], [address] CA,Total 9.6 mg/dL Normal 8.5-10.1 [facility] Comment on above: Performed By: #### L 100.0500, L500.2500 ####[facility] [address] [place], [address] Chloride [Moles/Vol] 103 mmol/L Normal 98-107 [facility] Comment on above: Performed By: #### L 100.0500, L500.2500 ####[facility] [address] [place], [address] CO2 [Moles/Vol] 28.0 mmol/L Normal 21.0-32.0 [facility] Comment on above: Performed By: #### L 100.0500, L500.2500 ####[facility] [address] [place], [address] Creatinine [Mass/Vol] 0.90 mg/dL Normal 0.55-1.02 [facility] Comment on above: Result Comment: The validity of the calculated GFR GFRAA in patients over70 years has not been determined. Clinical correlation isessential. Performed By: #### L 100.0500, L500.2500 ####[facility] [address] [place], [address] ECRCL 43.63 ml/min Normal [facility] Comment on above: Performed By: #### L 100.0500, L500.2500 ####[facility] [address] [place], [address] EST GFR - AA 76 mL/min Normal >60 [facility] Comment on above: Result Comment: Afri can Sudanese GFR Calc Performed By: #### L 100.0500, L500.2500 ####[facility] [address] [place], [address] GAP 6 Normal 5-15 [facility] Comment on above: Performed By: #### L 100.0500, L500.2500 ####[facility] [address] [place], [address] GFR/1.73 sq M.predicted among non-blacks MDRD (S/P/Bld) [Vol rate/Area] 63 mL/min/{1.73_m2} Normal >60 [facility] Comment on above: Result Comment: Non- GFR Calc Performed By: #### L 100.0500, L500.2500 ####[facility] [address] [place], [address] Glucose [Mass/Vol] 152 mg/dL High 74-106 [facility] Comment on above: Result Comment: Fast ing Glucose result greater than or equal to 126 mg/dLsuggests DIABETES MELLITUS per A.D.A. criteria. Performed By: #### L 100.0500, L500.2500 ####[facility] [address] [place], [address] Potassium [Moles/Vol] 3.5 mmol/L Normal 3.5-5.1 [facility] Comment on above: Performed By: #### L 100.0500, L500.2500 ####[facility] [address] [place], [address] Sodium [Moles/Vol] 137 mmol/L Normal 136-145 [facility] Comment on above: Performed By: #### L 100.0500, L500.2500 ####[facility] [address] [place], [address] Urea nitrogen [Mass/Vol] 19 mg/dL High 7-18 [facility] Comment on above: Performed By: #### L 100.0500, L500.2500 ####[facility] [address] [place], [address] CBC-Complete Blood Cnt No Di ffon 01-25-2024 Erythrocyte distribution width (RBC) [Ratio] 15.9 % High 11.6-14.6 [facility] Comment on above: Performed By: #### L 100.0500, L500.2500 ####[facility] [address] [place], [address] Hematocrit (Bld) [Volume fraction] 27.9 % Low 37-47 [facility] Comment on above: Performed By: #### L 100.0500, L500.2500 ####[facility] [address] [place], [address] Hemoglobin (Bld) [Mass/Vol] 9.0 g/dL Low 12.0-15.0 [facility] Comment on above: Performed By: #### L 100.0500, L500.2500 ####[facility] [address] [place], [address] MCH (RBC) [Entitic mass] 31.1 pg Normal 27.0-32.0 [facility] Comment on above: Performed By: #### L 100.0500, L500.2500 ####[facility] [address] [place], [address] MCHC (RBC) [Mass/Vol] 32.3 g/dL Normal 32-36 [facility] Comment on above: Performed By: #### L 100.0500, L500.2500 ####[facility] [address] [place], [address] MCV (RBC) [Entitic vol] 96.5 fL Normal 81-99 [facility] Comment on above: Performed By: #### L 100.0500, L500.2500 ####[facility] [address] [place], [address] Platelet mean volume (Bld) [Entitic vol] 10.1 fL Normal 6.2-12.0 [facility] Comment on above: Performed By: #### L 100.0500, L500.2500 ####[facility] [address] [place], [address] Platelets (Bld) [#/Vol] 253 10*3/uL Normal 150-450 [facility] Comment on above: Performed By: #### L 100.0500, L500.2500 ####[facility] [address] [place], [address] RBC (Bld) [#/Vol] 2.89 10*6/uL Low 4.2-5.4 [facility] Comment on above: Performed By: #### L 100.0500, L500.2500 ####[facility] [address] [place], [address] RDW SD 56.8 fl High 35.1-43.9 [facility] Comment on above: Performed By: #### L 100.0500, L500.2500 ####[facility] [address] [place], [address] WBC (Bld) [#/Vol] 5.4 10*3/uL Normal 4.4-11.0 [facility] Comment on above: Performed By: #### L 100.0500, L500.2500 ####[facility] [address] [place], [address] Basic Metabolic Profile (BMP )on 01-24-2024 BUN/CRE 19.7 RATIO Normal 10-20 [facility] Comment on above: Performed By: #### L 501.2300, L100.0100, L500.2500, L501.5200 ####[facility] [address] [place], [address] CA,Total 9.1 mg/dL Normal 8.5-10.1 [facility] Comment on above: Performed By: #### L 501.2300, L100.0100, L500.2500, L501.5200 ####[facility] [address] [place], [address] Chloride [Moles/Vol] 105 mmol/L Normal 98-107 [facility] Comment on above: Performed By: #### L 501.2300, L100.0100, L500.2500, L501.5200 ####[facility] [address] [place], [address] CO2 [Moles/Vol] 28.0 mmol/L Normal 21.0-32.0 [facility] Comment on above: Performed By: #### L 501.2300, L100.0100, L500.2500, L501.5200 ####[facility] [address] [place], [address] Creatinine [Mass/Vol] 0.92 mg/dL Normal 0.55-1.02 [facility] Comment on above: Result Comment: The validity of the calculated GFR GFRAA in patients over70 years has not been determined. Clinical correlation isessential. Performed By: #### L 501.2300, L100.0100, L500.2500, L501.5200 ####[facility] [address] [place], [address] ECRCL 42.68 ml/min Normal [facility] Comment on above: Performed By: #### L 501.2300, L100.0100, L500.2500, L501.5200 ####[facility] [address] [place], [address] EST GFR - AA 75 mL/min Normal >60 [facility] Comment on above: Result Comment: Afri can Sudanese GFR Calc Performed By: #### L 501.2300, L100.0100, L500.2500, L501.5200 ####[facility] [address] [place], [address] GAP 5 Normal 5-15 [facility] Comment on above: Performed By: #### L 501.2300, L100.0100, L500.2500, L501.5200 ####[facility] [address] [place], [address] GFR/1.73 sq M.predicted among non-blacks MDRD (S/P/Bld) [Vol rate/Area] 62 mL/min/{1.73_m2} Normal >60 [facility] Comment on above: Result Comment: Non- GFR Calc Performed By: #### L 501.2300, L100.0100, L500.2500, L501.5200 ####[facility] [address] [place], [address] Glucose [Mass/Vol] 133 mg/dL High 74-106 [facility] Comment on above: Result Comment: Fast ing Glucose result greater than or equal to 126 mg/dLsuggests DIABETES MELLITUS per A.D.A. criteria. Performed By: #### L 501.2300, L100.0100, L500.2500, L501.5200 ####[facility] [address] [place], [address] Potassium [Moles/Vol] 3.4 mmol/L Low 3.5-5.1 [facility] Comment on above: Performed By: #### L 501.2300, L100.0100, L500.2500, L501.5200 ####[facility] [address] [place], [address] Sodium [Moles/Vol] 138 mmol/L Normal 136-145 [facility] Comment on above: Performed By: #### L 501.2300, L100.0100, L500.2500, L501.5200 ####[facility] [address] [place], [address] Urea nitrogen [Mass/Vol] 18 mg/dL Normal 7-18 [facility] Comment on above: Performed By: #### L 501.2300, L100.0100, L500.2500, L501.5200 ####[facility] [address] [place], [address] CBC W/Diff, Automatedon 01-01 Absolute Lymph 1.02 X10 3/uL Normal 0.83-4.51 [facility] Comment on above: Performed By: #### L 501.2300, L100.0100, L500.2500, L501.5200 ####[facility] [address] [place], [address] Absolute Neut 3.1 X10 3/uL Normal 2.0-7.7 [facility] Comment on above: Performed By: #### L 501.2300, L100.0100, L500.2500, L501.5200 ####[facility] [address] [place], [address] Basophils/100 WBC (Bld) 0.6 % Normal 0-1 [facility] Comment on above: Performed By: #### L 501.2300, L100.0100, L500.2500, L501.5200 ####[facility] [address] [place], [address] Eosinophils/100 WBC (Bld) 5.6 % High 0-5 [facility] Comment on above: Performed By: #### L 501.2300, L100.0100, L500.2500, L501.5200 ####[facility] [address] [place], [address] Erythrocyte distribution width (RBC) [Ratio] 15.9 % High 11.6-14.6 [facility] Comment on above: Performed By: #### L 501.2300, L100.0100, L500.2500, L501.5200 ####[facility] [address] [place], [address] Hematocrit (Bld) [Volume fraction] 28.0 % Low 37-47 [facility] Comment on above: Performed By: #### L 501.2300, L100.0100, L500.2500, L501.5200 ####[facility] [address] [place], [address] Hemoglobin (Bld) [Mass/Vol] 8.8 g/dL Low 12.0-15.0 [facility] Comment on above: Performed By: #### L 501.2300, L100.0100, L500.2500, L501.5200 ####[facility] [address] [place], [address] IG% 0.400 Normal 0.0-0.9 [facility] Comment on above: Result Comment: IG% - Immature Granulocytes (promyelocytes, myelocytes andmetamyelocytes) > 1% indicates that a LEFT SHIFT is Present. Performed By: #### L 501.2300, L100.0100, L500.2500, L501.5200 ####[facility] [address] [place], [address] Lymphocytes/100 WBC (Bld) 19.6 % Normal 19-41 [facility] Comment on above: Performed By: #### L 501.2300, L100.0100, L500.2500, L501.5200 ####[facility] [address] [place], [address] MCH (RBC) [Entitic mass] 30.9 pg Normal 27.0-32.0 [facility] Comment on above: Performed By: #### L 501.2300, L100.0100, L500.2500, L501.5200 ####[facility] [address] [place], [address] MCHC (RBC) [Mass/Vol] 31.4 g/dL Low 32-36 [facility] Comment on above: Performed By: #### L 501.2300, L100.0100, L500.2500, L501.5200 ####[facility] [address] [place], [address] MCV (RBC) [Entitic vol] 98.2 fL Normal 81-99 [facility] Comment on above: Performed By: #### L 501.2300, L100.0100, L500.2500, L501.5200 ####[facility] [address] [place], [address] Monocytes/100 WBC (Bld) 13.7 % High 0-10 [facility] Comment on above: Performed By: #### L 501.2300, L100.0100, L500.2500, L501.5200 ####[facility] [address] [place], [address] Neutrophils/100 WBC (Bld) 60.1 % Normal 47-70 [facility] Comment on above: Performed By: #### L 501.2300, L100.0100, L500.2500, L501.5200 ####[facility] [address] [place], [address] Nucleated RBC (Bld) [#/Vol] 0 10*3/uL Normal 0-5 [facility] Comment on above: Performed By: #### L 501.2300, L100.0100, L500.2500, L501.5200 ####[facility] [address] [place], [address] Platelet mean volume (Bld) [Entitic vol] 9.2 fL Normal 6.2-12.0 [facility] Comment on above: Performed By: #### L 501.2300, L100.0100, L500.2500, L501.5200 ####[facility] [address] [place], [address] Platelets (Bld) [#/Vol] 249 10*3/uL Normal 150-450 [facility] Comment on above: Performed By: #### L 501.2300, L100.0100, L500.2500, L501.5200 ####[facility] [address] [place], [address] RBC (Bld) [#/Vol] 2.85 10*6/uL Low 4.2-5.4 [facility] Comment on above: Performed By: #### L 501.2300, L100.0100, L500.2500, L501.5200 ####[facility] [address] [place], [address] RDW SD 57.8 fl High 35.1-43.9 [facility] Comment on above: Performed By: #### L 501.2300, L100.0100, L500.2500, L501.5200 ####[facility] [address] [place], [address] WBC (Bld) [#/Vol] 5.2 10*3/uL Normal 4.4-11.0 [facility] Comment on above: Performed By: #### L 501.2300, L100.0100, L500.2500, L501.5200 ####[facility] [address] [place], [address] Magnesiumon 01-24-2024 Magnesium [Mass/Vol] 1.8 mg/dL Normal 1.6-2.6 [facility] Comment on above: Performed By: #### L 501.2300, L100.0100, L500.2500, L501.5200 ####[facility] [address] [place], [address] Phosphoruson 01-24-2024 Phosphate [Mass/Vol] 3.5 mg/dL Normal 2.5-4.9 [facility] Comment on above: Performed By: #### L 501.2300, L100.0100, L500.2500, L501.5200 ####[facility] [address] [place], [address] Basic Metabolic Profile (BMP )on 01-23-2024 BUN/CRE 20.7 RATIO High 10-20 [facility] Comment on above: Performed By: #### L 500.2500, L100.0100 ####[facility] [address] [place], [address] CA,Total 9.5 mg/dL Normal 8.5-10.1 [facility] Comment on above: Performed By: #### L 500.2500, L100.0100 ####[facility] [address] [place], [address] Chloride [Moles/Vol] 105 mmol/L Normal 98-107 [facility] Comment on above: Performed By: #### L 500.2500, L100.0100 ####[facility] [address] [place], [address] CO2 [Moles/Vol] 23.0 mmol/L Normal 21.0-32.0 [facility] Comment on above: Performed By: #### L 500.2500, L100.0100 ####[facility] [address] [place], [address] Creatinine [Mass/Vol] 0.97 mg/dL Normal 0.55-1.02 [facility] Comment on above: Result Comment: The validity of the calculated GFR GFRAA in patients over70 years has not been determined. Clinical correlation isessential. Performed By: #### L 500.2500, L100.0100 ####[facility] [address] [place], [address] ECRCL 40.48 ml/min Normal [facility] Comment on above: Performed By: #### L 500.2500, L100.0100 ####[facility] [address] [place], [address] EST GFR - AA 71 mL/min Normal >60 [facility] Comment on above: Result Comment: Afri can Sudanese GFR Calc Performed By: #### L 500.2500, L100.0100 ####[facility] [address] [place], [address] GAP 10 Normal 5-15 [facility] Comment on above: Performed By: #### L 500.2500, L100.0100 ####[facility] [address] [place], [address] GFR/1.73 sq M.predicted among non-blacks MDRD (S/P/Bld) [Vol rate/Area] 58 mL/min/{1.73_m2} Low >60 [facility] Comment on above: Result Comment: Non- GFR Calc Performed By: #### L 500.2500, L100.0100 ####[facility] [address] [place], [address] Glucose [Mass/Vol] 106 mg/dL Normal 74-106 [facility] Comment on above: Result Comment: Fast ing Glucose result from 100 to 125 mg/dLsuggests IMPAIRED HOMEOSTASIS per A.D.A. criteria. Performed By: #### L 500.2500, L100.0100 ####[facility] [address] [place], [address] Potassium [Moles/Vol] 3.5 mmol/L Normal 3.5-5.1 [facility] Comment on above: Performed By: #### L 500.2500, L100.0100 ####[facility] [address] [place], [address] Sodium [Moles/Vol] 138 mmol/L Normal 136-145 [facility] Comment on above: Performed By: #### L 500.2500, L100.0100 ####[facility] [address] [place], [address] Urea nitrogen [Mass/Vol] 20 mg/dL High 7-18 [facility] Comment on above: Performed By: #### L 500.2500, L100.0100 ####[facility] [address] [place], [address] CBC W/Diff, Automatedon 01-01 Absolute Lymph 0.84 X10 3/uL Normal 0.83-4.51 [facility] Comment on above: Performed By: #### L 500.2500, L100.0100 ####[facility] [address] [place], [address] Absolute Neut 3.9 X10 3/uL Normal 2.0-7.7 [facility] Comment on above: Performed By: #### L 500.2500, L100.0100 ####[facility] [address] [place], [address] Basophils/100 WBC (Bld) 0.7 % Normal 0-1 [facility] Comment on above: Performed By: #### L 500.2500, L100.0100 ####[facility] [address] [place], [address] Eosinophils/100 WBC (Bld) 4.8 % Normal 0-5 [facility] Comment on above: Performed By: #### L 500.2500, L100.0100 ####[facility] [address] [place], [address] Erythrocyte distribution width (RBC) [Ratio] 16.0 % High 11.6-14.6 [facility] Comment on above: Performed By: #### L 500.2500, L100.0100 ####[facility] [address] [place], [address] Hematocrit (Bld) [Volume fraction] 28.5 % Low 37-47 [facility] Comment on above: Performed By: #### L 500.2500, L100.0100 ####[facility] [address] [place], [address] Hemoglobin (Bld) [Mass/Vol] 9.0 g/dL Low 12.0-15.0 [facility] Comment on above: Performed By: #### L 500.2500, L100.0100 ####[facility] [address] [place], [address] IG% 0.400 Normal 0.0-0.9 [facility] Comment on above: Result Comment: IG% - Immature Granulocytes (promyelocytes, myelocytes andmetamyelocytes) > 1% indicates that a LEFT SHIFT is Present. Performed By: #### L 500.2500, L100.0100 ####[facility] [address] [place], [address] Lymphocytes/100 WBC (Bld) 14.8 % Low 19-41 [facility] Comment on above: Performed By: #### L 500.2500, L100.0100 ####[facility] [address] [place], [address] MCH (RBC) [Entitic mass] 31.1 pg Normal 27.0-32.0 [facility] Comment on above: Performed By: #### L 500.2500, L100.0100 ####[facility] [address] [place], [address] MCHC (RBC) [Mass/Vol] 31.6 g/dL Low 32-36 [facility] Comment on above: Performed By: #### L 500.2500, L100.0100 ####[facility] [address] [place], [address] MCV (RBC) [Entitic vol] 98.6 fL Normal 81-99 [facility] Comment on above: Performed By: #### L 500.2500, L100.0100 ####[facility] [address] [place], [address] Monocytes/100 WBC (Bld) 11.0 % High 0-10 [facility] Comment on above: Performed By: #### L 500.2500, L100.0100 ####[facility] [address] [place], [address] Neutrophils/100 WBC (Bld) 68.3 % Normal 47-70 [facility] Comment on above: Performed By: #### L 500.2500, L100.0100 ####[facility] [address] [place], [address] Nucleated RBC (Bld) [#/Vol] 0 10*3/uL Normal 0-5 [facility] Comment on above: Performed By: #### L 500.2500, L100.0100 ####[facility] [address] [place], [address] Platelet mean volume (Bld) [Entitic vol] 10.4 fL Normal 6.2-12.0 [facility] Comment on above: Performed By: #### L 500.2500, L100.0100 ####[facility] [address] [place], [address] Platelets (Bld) [#/Vol] 240 10*3/uL Normal 150-450 [facility] Comment on above: Performed By: #### L 500.2500, L100.0100 ####[facility] [address] [place], [address] RBC (Bld) [#/Vol] 2.89 10*6/uL Low 4.2-5.4 [facility] Comment on above: Performed By: #### L 500.2500, L100.0100 ####[facility] [address] [place], [address] RDW SD 57.8 fl High 35.1-43.9 [facility] Comment on above: Performed By: #### L 500.2500, L100.0100 ####[facility] [address] [place], [address] WBC (Bld) [#/Vol] 5.7 10*3/uL Normal 4.4-11.0 [facility] Comment on above: Performed By: #### L 500.2500, L100.0100 ####[facility] [address] [place], [address] Basic Metabolic Profile (BMP )on 01-22-2024 BUN/CRE 22.1 RATIO High 10-20 [facility] Comment on above: Performed By: #### L 100.0100, L500.2500 ####[facility] [address] [place], [address] CA,Total 8.9 mg/dL Normal 8.5-10.1 [facility] Comment on above: Performed By: #### L 100.0100, L500.2500 ####[facility] [address] [place], [address] Chloride [Moles/Vol] 106 mmol/L Normal 98-107 [facility] Comment on above: Performed By: #### L 100.0100, L500.2500 ####[facility] [address] [place], [address] CO2 [Moles/Vol] 25.0 mmol/L Normal 21.0-32.0 [facility] Comment on above: Performed By: #### L 100.0100, L500.2500 ####[facility] [address] [place], [address] Creatinine [Mass/Vol] 0.90 mg/dL Normal 0.55-1.02 [facility] Comment on above: Result Comment: The validity of the calculated GFR GFRAA in patients over70 years has not been determined. Clinical correlation isessential. Performed By: #### L 100.0100, L500.2500 ####[facility] [address] [place], [address] ECRCL 43.57 ml/min Normal [facility] Comment on above: Performed By: #### L 100.0100, L500.2500 ####[facility] [address] [place], [address] EST GFR - AA 76 mL/min Normal >60 [facility] Comment on above: Result Comment: Afri can Sudanese GFR Calc Performed By: #### L 100.0100, L500.2500 ####[facility] [address] [place], [address] GAP 7 Normal 5-15 [facility] Comment on above: Performed By: #### L 100.0100, L500.2500 ####[facility] [address] [place], [address] GFR/1.73 sq M.predicted among non-blacks MDRD (S/P/Bld) [Vol rate/Area] 63 mL/min/{1.73_m2} Normal >60 [facility] Comment on above: Result Comment: Non- GFR Calc Performed By: #### L 100.0100, L500.2500 ####[facility] [address] [place], [address] Glucose [Mass/Vol] 98 mg/dL Normal 74-106 [facility] Comment on above: Performed By: #### L 100.0100, L500.2500 ####[facility] [address] [place], [address] Potassium [Moles/Vol] 3.5 mmol/L Normal 3.5-5.1 [facility] Comment on above: Performed By: #### L 100.0100, L500.2500 ####[facility] [address] [place], [address] Sodium [Moles/Vol] 138 mmol/L Normal 136-145 [facility] Comment on above: Performed By: #### L 100.0100, L500.2500 ####[facility] [address] [place], [address] Urea nitrogen [Mass/Vol] 20 mg/dL High 7-18 [facility] Comment on above: Performed By: #### L 100.0100, L500.2500 ####[facility] [address] [place], [address] CBC W/Diff, Automatedon 01-01 Absolute Lymph 1.20 X10 3/uL Normal 0.83-4.51 [facility] Comment on above: Performed By: #### L 100.0100, L500.2500 ####[facility] [address] [place], [address] Absolute Neut 5.6 X10 3/uL Normal 2.0-7.7 [facility] Comment on above: Performed By: #### L 100.0100, L500.2500 ####[facility] [address] [place], [address] Basophils/100 WBC (Bld) 0.4 % Normal 0-1 [facility] Comment on above: Performed By: #### L 100.0100, L500.2500 ####[facility] [address] [place], [address] Eosinophils/100 WBC (Bld) 1.5 % Normal 0-5 [facility] Comment on above: Performed By: #### L 100.0100, L500.2500 ####[facility] [address] [place], [address] Erythrocyte distribution width (RBC) [Ratio] 16.4 % High 11.6-14.6 [facility] Comment on above: Performed By: #### L 100.0100, L500.2500 ####[facility] [address] [place], [address] Hematocrit (Bld) [Volume fraction] 26.7 % Low 37-47 [facility] Comment on above: Performed By: #### L 100.0100, L500.2500 ####[facility] [address] [place], [address] Hemoglobin (Bld) [Mass/Vol] 8.5 g/dL Low 12.0-15.0 [facility] Comment on above: Performed By: #### L 100.0100, L500.2500 ####[facility] [address] [place], [address] IG% 0.400 Normal 0.0-0.9 [facility] Comment on above: Result Comment: IG% - Immature Granulocytes (promyelocytes, myelocytes andmetamyelocytes) > 1% indicates that a LEFT SHIFT is Present. Performed By: #### L 100.0100, L500.2500 ####[facility] [address] [place], [address] Lymphocytes/100 WBC (Bld) 15.3 % Low 19-41 [facility] Comment on above: Performed By: #### L 100.0100, L500.2500 ####[facility] [address] [place], [address] MCH (RBC) [Entitic mass] 32.1 pg High 27.0-32.0 [facility] Comment on above: Performed By: #### L 100.0100, L500.2500 ####[facility] [address] [place], [address] MCHC (RBC) [Mass/Vol] 31.8 g/dL Low 32-36 [facility] Comment on above: Performed By: #### L 100.0100, L500.2500 ####[facility] [address] [place], [address] MCV (RBC) [Entitic vol] 100.8 fL High 81-99 [facility] Comment on above: Performed By: #### L 100.0100, L500.2500 ####[facility] [address] [place], [address] Monocytes/100 WBC (Bld) 11.5 % High 0-10 [facility] Comment on above: Performed By: #### L 100.0100, L500.2500 ####[facility] [address] [place], [address] Neutrophils/100 WBC (Bld) 70.9 % High 47-70 [facility] Comment on above: Performed By: #### L 100.0100, L500.2500 ####[facility] [address] [place], [address] Nucleated RBC (Bld) [#/Vol] 0 10*3/uL Normal 0-5 [facility] Comment on above: Performed By: #### L 100.0100, L500.2500 ####[facility] [address] [place], [address] Platelet mean volume (Bld) [Entitic vol] 11.3 fL Normal 6.2-12.0 [facility] Comment on above: Performed By: #### L 100.0100, L500.2500 ####[facility] [address] [place], [address] Platelets (Bld) [#/Vol] 177 10*3/uL Normal 150-450 [facility] Comment on above: Performed By: #### L 100.0100, L500.2500 ####[facility] [address] [place], [address] RBC (Bld) [#/Vol] 2.65 10*6/uL Low 4.2-5.4 [facility] Comment on above: Performed By: #### L 100.0100, L500.2500 ####[facility] [address] [place], [address] RDW SD 60.8 fl High 35.1-43.9 [facility] Comment on above: Performed By: #### L 100.0100, L500.2500 ####[facility] [address] [place], [address] WBC (Bld) [#/Vol] 7.9 10*3/uL Normal 4.4-11.0 [facility] Comment on above: Performed By: #### L 100.0100, L500.2500 ####[facility] [address] [place], [address] Basic Metabolic Profile (BMP )on 01-21-2024 BUN/CRE 18.0 RATIO Normal 10-20 [facility] Comment on above: Performed By: #### L 500.2500, L100.0100 ####[facility] [address] [place], [address] CA,Total 8.6 mg/dL Normal 8.5-10.1 [facility] Comment on above: Performed By: #### L 500.2500, L100.0100 ####[facility] [address] [place], [address] Chloride [Moles/Vol] 105 mmol/L Normal 98-107 [facility] Comment on above: Performed By: #### L 500.2500, L100.0100 ####[facility] [address] [place], [address] CO2 [Moles/Vol] 21.0 mmol/L Normal 21.0-32.0 [facility] Comment on above: Performed By: #### L 500.2500, L100.0100 ####[facility] [address] [place], [address] Creatinine [Mass/Vol] 0.83 mg/dL Normal 0.55-1.02 [facility] Comment on above: Result Comment: The validity of the calculated GFR GFRAA in patients over70 years has not been determined. Clinical correlation isessential. Performed By: #### L 500.2500, L100.0100 ####[facility] [address] [place], [address] ECRCL 47.54 ml/min Normal [facility] Comment on above: Performed By: #### L 500.2500, L100.0100 ####[facility] [address] [place], [address] EST GFR - AA 84 mL/min Normal >60 [facility] Comment on above: Result Comment: Afri can Sudanese GFR Calc Performed By: #### L 500.2500, L100.0100 ####[facility] [address] [place], [address] GAP 8 Normal 5-15 [facility] Comment on above: Performed By: #### L 500.2500, L100.0100 ####[facility] [address] [place], [address] GFR/1.73 sq M.predicted among non-blacks MDRD (S/P/Bld) [Vol rate/Area] 69 mL/min/{1.73_m2} Normal >60 [facility] Comment on above: Result Comment: Non- GFR Calc Performed By: #### L 500.2500, L100.0100 ####[facility] [address] [place], [address] Glucose [Mass/Vol] 108 mg/dL High 74-106 [facility] Comment on above: Result Comment: Fast ing Glucose result from 100 to 125 mg/dLsuggests IMPAIRED HOMEOSTASIS per A.D.A. criteria. Performed By: #### L 500.2500, L100.0100 ####[facility] [address] [place], [address] Potassium [Moles/Vol] 3.7 mmol/L Normal 3.5-5.1 [facility] Comment on above: Performed By: #### L 500.2500, L100.0100 ####[facility] [address] [place], [address] Sodium [Moles/Vol] 134 mmol/L Low 136-145 [facility] Comment on above: Performed By: #### L 500.2500, L100.0100 ####[facility] [address] [place], [address] Urea nitrogen [Mass/Vol] 15 mg/dL Normal 7-18 [facility] Comment on above: Performed By: #### L 500.2500, L100.0100 ####[facility] [address] [place], [address] CBC W/Diff, Automatedon -06 02-2023 Absolute Lymph 1.03 X10 3/uL Normal 0.83-4.51 [facility] Comment on above: Performed By: #### L 500.2500, L100.0100 ####[facility] [address] [place], [address] Absolute Neut 5.9 X10 3/uL Normal 2.0-7.7 [facility] Comment on above: Performed By: #### L 500.2500, L100.0100 ####[facility] [address] [place], [address] Basophils/100 WBC (Bld) 0.2 % Normal 0-1 [facility] Comment on above: Performed By: #### L 500.2500, L100.0100 ####[facility] [address] [place], [address] Eosinophils/100 WBC (Bld) 0.6 % Normal 0-5 [facility] Comment on above: Performed By: #### L 500.2500, L100.0100 ####[facility] [address] [place], [address] Erythrocyte distribution width (RBC) [Ratio] 16.5 % High 11.6-14.6 [facility] Comment on above: Performed By: #### L 500.2500, L100.0100 ####[facility] [address] [place], [address] Hematocrit (Bld) [Volume fraction] 26.4 % Low 37-47 [facility] Comment on above: Performed By: #### L 500.2500, L100.0100 ####[facility] [address] [place], [address] Hemoglobin (Bld) [Mass/Vol] 8.4 g/dL Low 12.0-15.0 [facility] Comment on above: Performed By: #### L 500.2500, L100.0100 ####[facility] [address] [place], [address] IG% 0.600 Normal 0.0-0.9 [facility] Comment on above: Result Comment: IG% - Immature Granulocytes (promyelocytes, myelocytes andmetamyelocytes) > 1% indicates that a LEFT SHIFT is Present. Performed By: #### L 500.2500, L100.0100 ####[facility] [address] [place], [address] Lymphocytes/100 WBC (Bld) 12.8 % Low 19-41 [facility] Comment on above: Performed By: #### L 500.2500, L100.0100 ####[facility] [address] [place], [address] MCH (RBC) [Entitic mass] 31.2 pg Normal 27.0-32.0 [facility] Comment on above: Performed By: #### L 500.2500, L100.0100 ####[facility] [address] [place], [address] MCHC (RBC) [Mass/Vol] 31.8 g/dL Low 32-36 [facility] Comment on above: Performed By: #### L 500.2500, L100.0100 ####[facility] [address] [place], [address] MCV (RBC) [Entitic vol] 98.1 fL Normal 81-99 [facility] Comment on above: Performed By: #### L 500.2500, L100.0100 ####[facility] [address] [place], [address] Monocytes/100 WBC (Bld) 12.2 % High 0-10 [facility] Comment on above: Performed By: #### L 500.2500, L100.0100 ####[facility] [address] [place], [address] Neutrophils/100 WBC (Bld) 73.6 % High 47-70 [facility] Comment on above: Performed By: #### L 500.2500, L100.0100 ####[facility] [address] [place], [address] Nucleated RBC (Bld) [#/Vol] 0.2 10*3/uL Normal 0-5 [facility] Comment on above: Performed By: #### L 500.2500, L100.0100 ####[facility] [address] [place], [address] Platelet mean volume (Bld) [Entitic vol] 10.1 fL Normal 6.2-12.0 [facility] Comment on above: Performed By: #### L 500.2500, L100.0100 ####[facility] [address] [place], [address] Platelets (Bld) [#/Vol] 192 10*3/uL Normal 150-450 [facility] Comment on above: Performed By: #### L 500.2500, L100.0100 ####[facility] [address] [place], [address] RBC (Bld) [#/Vol] 2.69 10*6/uL Low 4.2-5.4 [facility] Comment on above: Performed By: #### L 500.2500, L100.0100 ####[facility] [address] [place], [address] RDW SD 59.2 fl High 35.1-43.9 [facility] Comment on above: Performed By: #### L 500.2500, L100.0100 ####[facility] [address] [place], [address] WBC (Bld) [#/Vol] 8.0 10*3/uL Normal 4.4-11.0 [facility] Comment on above: Performed By: #### L 500.2500, L100.0100 ####[facility] [address] [place], [address] Partial Thromboplast Timeon 01-21-2024 aPTT Coag (Bld) [Time] 75.9 s High 24.1-36.2 [facility] Comment on above: Performed By: #### L 300.4310 ####[facility] [address] [place], [address] 12 Lead EKGon 01-20-2024 12 Lead EKG Normal [facility] Basic Metabolic Profile (BMP )on 01-20-2024 BUN/CRE 18.1 RATIO Normal - [facility] Comment on above: Performed By: #### L 100.0100, L500.2500 ####[facility] [address] [place], [address] CA,Total 9.0 mg/dL Normal 8.5-10.1 [facility] Comment on above: Performed By: #### L 100.0100, L500.2500 ####[facility] [address] [place], [address] Chloride [Moles/Vol] 107 mmol/L Normal 98-107 [facility] Comment on above: Performed By: #### L 100.0100, L500.2500 ####[facility] [address] [place], [address] CO2 [Moles/Vol] 22.0 mmol/L Normal 21.0-32.0 [facility] Comment on above: Performed By: #### L 100.0100, L500.2500 ####[facility] [address] [place], [address] Creatinine [Mass/Vol] 0.88 mg/dL Normal 0.55-1.02 [facility] Comment on above: Result Comment: The validity of the calculated GFR GFRAA in patients over70 years has not been determined. Clinical correlation isessential. Performed By: #### L 100.0100, L500.2500 ####[facility] [address] [place], [address] ECRCL 44.08 ml/min Normal [facility] Comment on above: Performed By: #### L 100.0100, L500.2500 ####[facility] [address] [place], [address] EST GFR - AA 78 mL/min Normal >60 [facility] Comment on above: Result Comment: Afri can Sudanese GFR Calc Performed By: #### L 100.0100, L500.2500 ####[facility] [address] [place], [address] GAP 8 Normal 5-15 [facility] Comment on above: Performed By: #### L 100.0100, L500.2500 ####[facility] [address] [place], [address] GFR/1.73 sq M.predicted among non-blacks MDRD (S/P/Bld) [Vol rate/Area] 65 mL/min/{1.73_m2} Normal >60 [facility] Comment on above: Result Comment: Non- GFR Calc Performed By: #### L 100.0100, L500.2500 ####[facility] [address] [place], [address] Glucose [Mass/Vol] 166 mg/dL High 74-106 [facility] Comment on above: Result Comment: Fast ing Glucose result greater than or equal to 126 mg/dLsuggests DIABETES MELLITUS per A.D.A. criteria. Performed By: #### L 100.0100, L500.2500 ####[facility] [address] [place], [address] Potassium [Moles/Vol] 4.0 mmol/L Normal 3.5-5.1 [facility] Comment on above: Performed By: #### L 100.0100, L500.2500 ####[facility] [address] [place], [address] Sodium [Moles/Vol] 137 mmol/L Normal 136-145 [facility] Comment on above: Performed By: #### L 100.0100, L500.2500 ####[facility] [address] [place], [address] Urea nitrogen [Mass/Vol] 16 mg/dL Normal 7-18 [facility] Comment on above: Performed By: #### L 100.0100, L500.2500 ####[facility] [address] [place], [address] CBC W/Diff, Automatedon 09-2 0-2023 Absolute Lymph 0.87 X10 3/uL Normal 0.83-4.51 [facility] Comment on above: Performed By: #### L 100.0100, L500.2500 ####[facility] [address] [place], [address] Absolute Neut 6.6 X10 3/uL Normal 2.0-7.7 [facility] Comment on above: Performed By: #### L 100.0100, L500.2500 ####[facility] [address] [place], [address] Basophils/100 WBC (Bld) 0.4 % Normal 0-1 [facility] Comment on above: Performed By: #### L 100.0100, L500.2500 ####[facility] [address] [place], [address] Eosinophils/100 WBC (Bld) 0.1 % Normal 0-5 [facility] Comment on above: Performed By: #### L 100.0100, L500.2500 ####[facility] [address] [place], [address] Erythrocyte distribution width (RBC) [Ratio] 16.4 % High 11.6-14.6 [facility] Comment on above: Performed By: #### L 100.0100, L500.2500 ####[facility] [address] [place], [address] Hematocrit (Bld) [Volume fraction] 30.5 % Low 37-47 [facility] Comment on above: Performed By: #### L 100.0100, L500.2500 ####[facility] [address] [place], [address] Hemoglobin (Bld) [Mass/Vol] 9.5 g/dL Low 12.0-15.0 [facility] Comment on above: Performed By: #### L 100.0100, L500.2500 ####[facility] [address] [place], [address] IG% 0.600 Normal 0.0-0.9 [facility] Comment on above: Result Comment: IG% - Immature Granulocytes (promyelocytes, myelocytes andmetamyelocytes) > 1% indicates that a LEFT SHIFT is Present. Performed By: #### L 100.0100, L500.2500 ####[facility] [address] [place], [address] Lymphocytes/100 WBC (Bld) 10.3 % Low 19-41 [facility] Comment on above: Performed By: #### L 100.0100, L500.2500 ####[facility] [address] [place], [address] MCH (RBC) [Entitic mass] 31.1 pg Normal 27.0-32.0 [facility] Comment on above: Performed By: #### L 100.0100, L500.2500 ####[facility] [address] [place], [address] MCHC (RBC) [Mass/Vol] 31.1 g/dL Low 32-36 [facility] Comment on above: Performed By: #### L 100.0100, L500.2500 ####[facility] [address] [place], [address] MCV (RBC) [Entitic vol] 100.0 fL High 81-99 [facility] Comment on above: Performed By: #### L 100.0100, L500.2500 ####[facility] [address] [place], [address] Monocytes/100 WBC (Bld) 10.6 % High 0-10 [facility] Comment on above: Performed By: #### L 100.0100, L500.2500 ####[facility] [address] [place], [address] Neutrophils/100 WBC (Bld) 78.0 % High 47-70 [facility] Comment on above: Performed By: #### L 100.0100, L500.2500 ####[facility] [address] [place], [address] Nucleated RBC (Bld) [#/Vol] 0 10*3/uL Normal 0-5 [facility] Comment on above: Performed By: #### L 100.0100, L500.2500 ####[facility] [address] [place], [address] Platelet mean volume (Bld) [Entitic vol] 10.7 fL Normal 6.2-12.0 [facility] Comment on above: Performed By: #### L 100.0100, L500.2500 ####[facility] [address] [place], [address] Platelets (Bld) [#/Vol] 235 10*3/uL Normal 150-450 [facility] Comment on above: Performed By: #### L 100.0100, L500.2500 ####[facility] [address] [place], [address] RBC (Bld) [#/Vol] 3.05 10*6/uL Low 4.2-5.4 [facility] Comment on above: Performed By: #### L 100.0100, L500.2500 ####[facility] [address] [place], [address] RDW SD 60.1 fl High 35.1-43.9 [facility] Comment on above: Performed By: #### L 100.0100, L500.2500 ####[facility] [address] [place], [address] WBC (Bld) [#/Vol] 8.4 10*3/uL Normal 4.4-11.0 [facility] Comment on above: Performed By: #### L 100.0100, L500.2500 ####[facility] [address] [place], [address] Partial Thromboplast Timeon 01-20-2024 aPTT Coag (Bld) [Time] 146.4 s Invalid Interpretation Code 24.1-36.2 [facility] [facility] Comment on above: Result Comment: CRIT ICAL VALUE CALLED TO SHERRY MARADIAGA01/20/242208 Evita Garibay.RESULTS READ BACK BY SAME. Performed By: #### L 300.4310 ####[facility] [address] [place], [address] aPTT Coag (Bld) [Time] 51.7 s High 24.1-36.2 [facility] Comment on above: Performed By: #### L 300.4310 ####[facility] [address] [place], [address] ACT Activated Clotting Timeo n 01-19-2024 ACTk CLOT TIME 305 sec High 74-137 [facility] Comment on above: Performed By: #### L 9100.0100 ####[facility] [address] [place], [address] BRCon 01-19-2024 RC Normal [facility] Comment on above: Result Comment: [id number] OP RC [id number] OP RC READY Performed By: #### B RC, BTS ####[facility] [address] [place], [address] Basic Metabolic Profile (BMP )on 01-19-2024 BUN/CRE 20.4 RATIO High 10-20 [facility] Comment on above: Performed By: #### L 500.2500, L100.0100 ####[facility] [address] [place], [address] CA,Total 9.2 mg/dL Normal 8.5-10.1 [facility] Comment on above: Performed By: #### L 500.2500, L100.0100 ####[facility] [address] [place], [address] Chloride [Moles/Vol] 106 mmol/L Normal 98-107 [facility] Comment on above: Performed By: #### L 500.2500, L100.0100 ####[facility] [address] [place], [address] CO2 [Moles/Vol] 23.0 mmol/L Normal 21.0-32.0 [facility] Comment on above: Performed By: #### L 500.2500, L100.0100 ####[facility] [address] [place], [address] Creatinine [Mass/Vol] 1.03 mg/dL High 0.55-1.02 [facility] Comment on above: Result Comment: The validity of the calculated GFR GFRAA in patients over70 years has not been determined. Clinical correlation isessential. Performed By: #### L 500.2500, L100.0100 ####[facility] [address] [place], [address] ECRCL 37.07 ml/min Normal [facility] Comment on above: Performed By: #### L 500.2500, L100.0100 ####[facility] [address] [place], [address] EST GFR - AA 66 mL/min Normal >60 [facility] Comment on above: Result Comment: Afri can Sudanese GFR Calc Performed By: #### L 500.2500, L100.0100 ####[facility] [address] [place], [address] GAP 7 Normal 5-15 [facility] Comment on above: Performed By: #### L 500.2500, L100.0100 ####[facility] [address] [place], [address] GFR/1.73 sq M.predicted among non-blacks MDRD (S/P/Bld) [Vol rate/Area] 54 mL/min/{1.73_m2} Low >60 [facility] Comment on above: Result Comment: Non- GFR Calc Performed By: #### L 500.2500, L100.0100 ####[facility] [address] [place], [address] Glucose [Mass/Vol] 115 mg/dL High 74-106 [facility] Comment on above: Result Comment: Fast ing Glucose result from 100 to 125 mg/dLsuggests IMPAIRED HOMEOSTASIS per A.D.A. criteria. Performed By: #### L 500.2500, L100.0100 ####[facility] [address] [place], [address] Potassium [Moles/Vol] 3.7 mmol/L Normal 3.5-5.1 [facility] Comment on above: Performed By: #### L 500.2500, L100.0100 ####[facility] [address] [place], [address] Sodium [Moles/Vol] 136 mmol/L Normal 136-145 [facility] Comment on above: Performed By: #### L 500.2500, L100.0100 ####[facility] [address] [place], [address] Urea nitrogen [Mass/Vol] 21 mg/dL High 7-18 [facility] Comment on above: Performed By: #### L 500.2500, L100.0100 ####[facility] [address] [place], [address] CBC W/Diff, Automatedon 12-31 Absolute Lymph 1.26 X10 3/uL Normal 0.83-4.51 [facility] Comment on above: Performed By: #### L 500.2500, L100.0100 ####[facility] [address] [place], [address] Absolute Neut 4.4 X10 3/uL Normal 2.0-7.7 [facility] Comment on above: Performed By: #### L 500.2500, L100.0100 ####[facility] [address] [place], [address] Basophils/100 WBC (Bld) 0.9 % Normal 0-1 [facility] Comment on above: Performed By: #### L 500.2500, L100.0100 ####[facility] [address] [place], [address] Eosinophils/100 WBC (Bld) 1.7 % Normal 0-5 [facility] Comment on above: Performed By: #### L 500.2500, L100.0100 ####[facility] [address] [place], [address] Erythrocyte distribution width (RBC) [Ratio] 16.3 % High 11.6-14.6 [facility] Comment on above: Performed By: #### L 500.2500, L100.0100 ####[facility] [address] [place], [address] Hematocrit (Bld) [Volume fraction] 33.4 % Low 37-47 [facility] Comment on above: Performed By: #### L 500.2500, L100.0100 ####[facility] [address] [place], [address] Hemoglobin (Bld) [Mass/Vol] 10.7 g/dL Low 12.0-15.0 [facility] Comment on above: Performed By: #### L 500.2500, L100.0100 ####[facility] [address] [place], [address] IG% 0.300 Normal 0.0-0.9 [facility] Comment on above: Result Comment: IG% - Immature Granulocytes (promyelocytes, myelocytes andmetamyelocytes) > 1% indicates that a LEFT SHIFT is Present. Performed By: #### L 500.2500, L100.0100 ####[facility] [address] [place], [address] Lymphocytes/100 WBC (Bld) 19.3 % Normal 19-41 [facility] Comment on above: Performed By: #### L 500.2500, L100.0100 ####[facility] [address] [place], [address] MCH (RBC) [Entitic mass] 31.9 pg Normal 27.0-32.0 [facility] Comment on above: Performed By: #### L 500.2500, L100.0100 ####[facility] [address] [place], [address] MCHC (RBC) [Mass/Vol] 32.0 g/dL Normal 32-36 [facility] Comment on above: Performed By: #### L 500.2500, L100.0100 ####[facility] [address] [place], [address] MCV (RBC) [Entitic vol] 99.7 fL High 81-99 [facility] Comment on above: Performed By: #### L 500.2500, L100.0100 ####[facility] [address] [place], [address] Monocytes/100 WBC (Bld) 10.9 % High 0-10 [facility] Comment on above: Performed By: #### L 500.2500, L100.0100 ####[facility] [address] [place], [address] Neutrophils/100 WBC (Bld) 66.9 % Normal 47-70 [facility] Comment on above: Performed By: #### L 500.2500, L100.0100 ####[facility] [address] [place], [address] Nucleated RBC (Bld) [#/Vol] 0 10*3/uL Normal 0-5 [facility] Comment on above: Performed By: #### L 500.2500, L100.0100 ####[facility] [address] [place], [address] Platelet mean volume (Bld) [Entitic vol] 11.0 fL Normal 6.2-12.0 [facility] Comment on above: Performed By: #### L 500.2500, L100.0100 ####[facility] [address] [place], [address] Platelets (Bld) [#/Vol] 269 10*3/uL Normal 150-450 [facility] Comment on above: Performed By: #### L 500.2500, L100.0100 ####[facility] [address] [place], [address] RBC (Bld) [#/Vol] 3.35 10*6/uL Low 4.2-5.4 [facility] Comment on above: Performed By: #### L 500.2500, L100.0100 ####[facility] [address] [place], [address] RDW SD 59.8 fl High 35.1-43.9 [facility] Comment on above: Performed By: #### L 500.2500, L100.0100 ####[facility] [address] [place], [address] WBC (Bld) [#/Vol] 6.5 10*3/uL Normal 4.4-11.0 [facility] Comment on above: Performed By: #### L 500.2500, L100.0100 ####[facility] [address] [place], [address] MR/POSTOP.ANEon 01-19-2024 MR/POSTOP.ANE Normal [facility] Operative Reporton Operative Report Normal [facility] Operative Report Normal [facility] Partial Thromboplast Timeon 01-19-2024 aPTT Coag (Bld) [Time] 51.9 s High 24.1-36.2 [facility] Comment on above: Performed By: #### L 300.4310 ####[facility] [address] [place], [address] aPTT Coag (Bld) [Time] 83.7 s High 24.1-36.2 [facility] Comment on above: Performed By: #### L 300.4310 ####[facility] [address] [place], [address] aPTT Coag (Bld) [Time] 83.8 s High 24.1-36.2 [facility] Comment on above: Performed By: #### L 300.4310 ####[facility] [address] [place], [address] Prothrombin Time w/INRon INR Coag (PPP) [Relative time] 2.6 {INR} Normal [facility] Comment on above: Performed By: #### L 300.3900 ####[facility] [address] [place], [address] PT Coag (PPP) [Time] 27.9 s High 11.7-14.9 [facility] Comment on above: Performed By: #### L 300.3900 ####[facility] [address] [place], [address] Type AND Screenon 01-19-2024 ABO and Rh group Nom (Bld) Blood group A Rh(D) positive Normal [facility] Comment on above: Order Comment: CMV N EG? NReason for Ordering Blood: AcuteAre the blood/blood products to be transfused? NIs the patient having/had surgery? Lyly Walter Performed By: #### B RC, BTS ####[facility] [address] [place], [address] 12 Lead EKGon 01-18-2024 12 Lead EKG Normal [facility] Basic Metabolic Profile (BMP )on 01-18-2024 BUN/CRE 18.4 RATIO Normal 10-20 [facility] Comment on above: Performed By: #### L 100.0100, L500.2500, L300.3900 ####[facility] [address] [place], [address] CA,Total 10.3 mg/dL High 8.5-10.1 [facility] Comment on above: Performed By: #### L 100.0100, L500.2500, L300.3900 ####[facility] [address] [place], [address] Chloride [Moles/Vol] 105 mmol/L Normal 98-107 [facility] Comment on above: Performed By: #### L 100.0100, L500.2500, L300.3900 ####[facility] [address] [place], [address] CO2 [Moles/Vol] 22.0 mmol/L Normal 21.0-32.0 [facility] Comment on above: Performed By: #### L 100.0100, L500.2500, L300.3900 ####[facility] [address] [place], [address] Creatinine [Mass/Vol] 1.03 mg/dL High 0.55-1.02 [facility] Comment on above: Result Comment: The validity of the calculated GFR GFRAA in patients over70 years has not been determined. Clinical correlation isessential. Performed By: #### L 100.0100, L500.2500, L300.3900 ####[facility] [address] [place], [address] ECRCL 37.69 ml/min Normal [facility] Comment on above: Performed By: #### L 100.0100, L500.2500, L300.3900 ####[facility] [address] [place], [address] EST GFR - AA 66 mL/min Normal >60 [facility] Comment on above: Result Comment: Afri can Sudanese GFR Calc Performed By: #### L 100.0100, L500.2500, L300.3900 ####[facility] [address] [place], [address] GAP 12 Normal 5-15 [facility] Comment on above: Performed By: #### L 100.0100, L500.2500, L300.3900 ####[facility] [address] [place], [address] GFR/1.73 sq M.predicted among non-blacks MDRD (S/P/Bld) [Vol rate/Area] 54 mL/min/{1.73_m2} Low >60 [facility] Comment on above: Result Comment: Non- GFR Calc Performed By: #### L 100.0100, L500.2500, L300.3900 ####[facility] [address] [place], [address] Glucose [Mass/Vol] 169 mg/dL High 74-106 [facility] Comment on above: Result Comment: Fast ing Glucose result greater than or equal to 126 mg/dLsuggests DIABETES MELLITUS per A.D.A. criteria. Performed By: #### L 100.0100, L500.2500, L300.3900 ####[facility] [address] [place], [address] Potassium [Moles/Vol] 3.5 mmol/L Normal 3.5-5.1 [facility] Comment on above: Performed By: #### L 100.0100, L500.2500, L300.3900 ####[facility] [address] [place], [address] Sodium [Moles/Vol] 139 mmol/L Normal 136-145 [facility] Comment on above: Performed By: #### L 100.0100, L500.2500, L300.3900 ####[facility] [address] [place], [address] Urea nitrogen [Mass/Vol] 19 mg/dL High 7-18 [facility] Comment on above: Performed By: #### L 100.0100, L500.2500, L300.3900 ####[facility] [address] [place], [address] CBC W/Diff, Automatedon 12-31 Absolute Lymph 1.44 X10 3/uL Normal 0.83-4.51 [facility] Comment on above: Performed By: #### L 100.0100, L500.2500, L300.3900 ####[facility] [address] [place], [address] Absolute Neut 6.6 X10 3/uL Normal 2.0-7.7 [facility] Comment on above: Performed By: #### L 100.0100, L500.2500, L300.3900 ####[facility] [address] [place], [address] Basophils/100 WBC (Bld) 0.4 % Normal 0-1 [facility] Comment on above: Performed By: #### L 100.0100, L500.2500, L300.3900 ####[facility] [address] [place], [address] Eosinophils/100 WBC (Bld) 1.1 % Normal 0-5 [facility] Comment on above: Performed By: #### L 100.0100, L500.2500, L300.3900 ####[facility] [address] [place], [address] Erythrocyte distribution width (RBC) [Ratio] 16.1 % High 11.6-14.6 [facility] Comment on above: Performed By: #### L 100.0100, L500.2500, L300.3900 ####[facility] [address] [place], [address] Hematocrit (Bld) [Volume fraction] 39.0 % Normal 37-47 [facility] Comment on above: Performed By: #### L 100.0100, L500.2500, L300.3900 ####[facility] [address] [place], [address] Hemoglobin (Bld) [Mass/Vol] 12.3 g/dL Normal 12.0-15.0 [facility] Comment on above: Performed By: #### L 100.0100, L500.2500, L300.3900 ####[facility] [address] [place], [address] IG% 0.200 Normal 0.0-0.9 [facility] Comment on above: Result Comment: IG% - Immature Granulocytes (promyelocytes, myelocytes andmetamyelocytes) > 1% indicates that a LEFT SHIFT is Present. Performed By: #### L 100.0100, L500.2500, L300.3900 ####[facility] [address] [place], [address] Lymphocytes/100 WBC (Bld) 16.1 % Low 19-41 [facility] Comment on above: Performed By: #### L 100.0100, L500.2500, L300.3900 ####[facility] [address] [place], [address] MCH (RBC) [Entitic mass] 31.1 pg Normal 27.0-32.0 [facility] Comment on above: Performed By: #### L 100.0100, L500.2500, L300.3900 ####[facility] [address] [place], [address] MCHC (RBC) [Mass/Vol] 31.5 g/dL Low 32-36 [facility] Comment on above: Performed By: #### L 100.0100, L500.2500, L300.3900 ####[facility] [address] [place], [address] MCV (RBC) [Entitic vol] 98.5 fL Normal 81-99 [facility] Comment on above: Performed By: #### L 100.0100, L500.2500, L300.3900 ####[facility] [address] [place], [address] Monocytes/100 WBC (Bld) 8.5 % Normal 0-10 [facility] Comment on above: Performed By: #### L 100.0100, L500.2500, L300.3900 ####[facility] [address] [place], [address] Neutrophils/100 WBC (Bld) 73.7 % High 47-70 [facility] Comment on above: Performed By: #### L 100.0100, L500.2500, L300.3900 ####[facility] [address] [place], [address] Nucleated RBC (Bld) [#/Vol] 0 10*3/uL Normal 0-5 [facility] Comment on above: Performed By: #### L 100.0100, L500.2500, L300.3900 ####[facility] [address] [place], [address] Platelet mean volume (Bld) [Entitic vol] 10.5 fL Normal 6.2-12.0 [facility] Comment on above: Performed By: #### L 100.0100, L500.2500, L300.3900 ####[facility] [address] [place], [address] Platelets (Bld) [#/Vol] 282 10*3/uL Normal 150-450 [facility] Comment on above: Performed By: #### L 100.0100, L500.2500, L300.3900 ####[facility] [address] [place], [address] RBC (Bld) [#/Vol] 3.96 10*6/uL Low 4.2-5.4 [facility] Comment on above: Performed By: #### L 100.0100, L500.2500, L300.3900 ####[facility] [address] [place], [address] RDW SD 59.4 fl High 35.1-43.9 [facility] Comment on above: Performed By: #### L 100.0100, L500.2500, L300.3900 ####[facility] [address] [place], [address] WBC (Bld) [#/Vol] 9.0 10*3/uL Normal 4.4-11.0 [facility] Comment on above: Performed By: #### L 100.0100, L500.2500, L300.3900 ####[facility] [address] [place], [address] CTA Abd w/Runoff W/WO Contra ston 01-18-2024 CTA Abd w/Runoff W/WO Contrast Normal [facility] Consultation - Surgicalon Consultation - Surgical Normal [facility] Emergency Department Summary on 01-18-2024 Emergency Department Summary Normal [facility] H AND P Exam - Hospitaliston 01-18-2024 H&P Exam - Hospitalist Normal [facility] Partial Thromboplast Timeon 01-18-2024 aPTT Coag (Bld) [Time] s Invalid Interpretation Code 24.1-36.2 [facility] Comment on above: Order Comment: Comme nts: Heparin gtt Result Comment: CRIT ICAL VALUE CALLED TO LIJFHMOKYUW01/18/[id number] Annel Holder.RESULTS READ BACK BY SAME. Performed By: #### L 300.4310 ####[facility] [address] [place], [address] aPTT Coag (Bld) [Time] 62.2 s High 24.1-36.2 [facility] Comment on above: Performed By: #### L 300.4310 ####[facility] [address] [place], [address] Prothrombin Time w/INRon INR Coag (PPP) [Relative time] 2.9 {INR} Normal [facility] Comment on above: Performed By: #### L 100.0100, L500.2500, L300.3900 ####[facility] [address] [place], [address] PT Coag (PPP) [Time] 30.1 s High 11.7-14.9 [facility] Comment on above: Performed By: #### L 100.0100, L500.2500, L300.3900 ####[facility] [address] [place], [address] CNPTOUTREACHon 01-14-2024 CNPTOUTREACH Normal [facility] Basic Metabolic Profile (BMP )on 01-13-2024 BUN/CRE 20.4 RATIO High 10-20 [facility] Comment on above: Performed By: #### L 101.9900, L500.2500, L300.3900, L501.6710, L100.0100 ####[facility] [address] [place], [address] CA,Total 9.9 mg/dL Normal 8.5-10.1 [facility] Comment on above: Performed By: #### L 101.9900, L500.2500, L300.3900, L501.6710, L100.0100 ####[facility] [address] [place], [address] Chloride [Moles/Vol] 106 mmol/L Normal 98-107 [facility] Comment on above: Performed By: #### L 101.9900, L500.2500, L300.3900, L501.6710, L100.0100 ####[facility] [address] [place], [address] CO2 [Moles/Vol] 26.0 mmol/L Normal 21.0-32.0 [facility] Comment on above: Performed By: #### L 101.9900, L500.2500, L300.3900, L501.6710, L100.0100 ####[facility] [address] [place], [address] Creatinine [Mass/Vol] 0.98 mg/dL Normal 0.55-1.02 [facility] Comment on above: Result Comment: The validity of the calculated GFR GFRAA in patients over70 years has not been determined. Clinical correlation isessential. Performed By: #### L 101.9900, L500.2500, L300.3900, L501.6710, L100.0100 ####[facility] [address] [place], [address] ECRCL 39.73 ml/min Normal [facility] Comment on above: Performed By: #### L 101.9900, L500.2500, L300.3900, L501.6710, L100.0100 ####[facility] [address] [place], [address] EST GFR - AA 70 mL/min Normal >60 [facility] Comment on above: Result Comment: Afri can Sudanese GFR Calc Performed By: #### L 101.9900, L500.2500, L300.3900, L501.6710, L100.0100 ####[facility] [address] [place], [address] GAP 6 Normal 5-15 [facility] Comment on above: Performed By: #### L 101.9900, L500.2500, L300.3900, L501.6710, L100.0100 ####[facility] [address] [place], [address] GFR/1.73 sq M.predicted among non-blacks MDRD (S/P/Bld) [Vol rate/Area] 58 mL/min/{1.73_m2} Low >60 [facility] Comment on above: Result Comment: Non- GFR Calc Performed By: #### L 101.9900, L500.2500, L300.3900, L501.6710, L100.0100 ####[facility] [address] [place], [address] Glucose [Mass/Vol] 130 mg/dL High 74-106 [facility] Comment on above: Result Comment: Fast ing Glucose result greater than or equal to 126 mg/dLsuggests DIABETES MELLITUS per A.D.A. criteria. Performed By: #### L 101.9900, L500.2500, L300.3900, L501.6710, L100.0100 ####[facility] [address] [place], [address] Potassium [Moles/Vol] 3.6 mmol/L Normal 3.5-5.1 [facility] Comment on above: Performed By: #### L 101.9900, L500.2500, L300.3900, L501.6710, L100.0100 ####[facility] [address] [place], [address] Sodium [Moles/Vol] 138 mmol/L Normal 136-145 [facility] Comment on above: Performed By: #### L 101.9900, L500.2500, L300.3900, L501.6710, L100.0100 ####[facility] [address] [place], [address] Urea nitrogen [Mass/Vol] 20 mg/dL High 7-18 [facility] Comment on above: Performed By: #### L 101.9900, L500.2500, L300.3900, L501.6710, L100.0100 ####[facility] [address] [place], [address] CBC W/Diff, Automatedon 12-31 Absolute Lymph 1.72 X10 3/uL Normal 0.83-4.51 [facility] Comment on above: Performed By: #### L 101.9900, L500.2500, L300.3900, L501.6710, L100.0100 ####[facility] [address] [place], [address] Absolute Neut 4.4 X10 3/uL Normal 2.0-7.7 [facility] Comment on above: Performed By: #### L 101.9900, L500.2500, L300.3900, L501.6710, L100.0100 ####[facility] [address] [place], [address] Basophils/100 WBC (Bld) 0.9 % Normal 0-1 [facility] Comment on above: Performed By: #### L 101.9900, L500.2500, L300.3900, L501.6710, L100.0100 ####[facility] [address] [place], [address] Eosinophils/100 WBC (Bld) 2.9 % Normal 0-5 [facility] Comment on above: Performed By: #### L 101.9900, L500.2500, L300.3900, L501.6710, L100.0100 ####[facility] [address] [place], [address] Erythrocyte distribution width (RBC) [Ratio] 16.4 % High 11.6-14.6 [facility] Comment on above: Performed By: #### L 101.9900, L500.2500, L300.3900, L501.6710, L100.0100 ####[facility] [address] [place], [address] Hematocrit (Bld) [Volume fraction] 36.9 % Low 37-47 [facility] Comment on above: Performed By: #### L 101.9900, L500.2500, L300.3900, L501.6710, L100.0100 ####[facility] [address] [place], [address] Hemoglobin (Bld) [Mass/Vol] 11.4 g/dL Low 12.0-15.0 [facility] Comment on above: Performed By: #### L 101.9900, L500.2500, L300.3900, L501.6710, L100.0100 ####[facility] [address] [place], [address] IG% 0.300 Normal 0.0-0.9 [facility] Comment on above: Result Comment: IG% - Immature Granulocytes (promyelocytes, myelocytes andmetamyelocytes) > 1% indicates that a LEFT SHIFT is Present. Performed By: #### L 101.9900, L500.2500, L300.3900, L501.6710, L100.0100 ####[facility] [address] [place], [address] Lymphocytes/100 WBC (Bld) 24.6 % Normal 19-41 [facility] Comment on above: Performed By: #### L 101.9900, L500.2500, L300.3900, L501.6710, L100.0100 ####[facility] [address] [place], [address] MCH (RBC) [Entitic mass] 30.9 pg Normal 27.0-32.0 [facility] Comment on above: Performed By: #### L 101.9900, L500.2500, L300.3900, L501.6710, L100.0100 ####[facility] [address] [place], [address] MCHC (RBC) [Mass/Vol] 30.9 g/dL Low 32-36 [facility] Comment on above: Performed By: #### L 101.9900, L500.2500, L300.3900, L501.6710, L100.0100 ####[facility] [address] [place], [address] MCV (RBC) [Entitic vol] 100.0 fL High 81-99 [facility] Comment on above: Performed By: #### L 101.9900, L500.2500, L300.3900, L501.6710, L100.0100 ####[facility] [address] [place], [address] Monocytes/100 WBC (Bld) 8.7 % Normal 0-10 [facility] Comment on above: Performed By: #### L 101.9900, L500.2500, L300.3900, L501.6710, L100.0100 ####[facility] [address] [place], [address] Neutrophils/100 WBC (Bld) 62.6 % Normal 47-70 [facility] Comment on above: Performed By: #### L 101.9900, L500.2500, L300.3900, L501.6710, L100.0100 ####[facility] [address] [place], [address] Nucleated RBC (Bld) [#/Vol] 0.4 10*3/uL Normal 0-5 [facility] Comment on above: Performed By: #### L 101.9900, L500.2500, L300.3900, L501.6710, L100.0100 ####[facility] [address] [place], [address] Platelet mean volume (Bld) [Entitic vol] 11.4 fL Normal 6.2-12.0 [facility] Comment on above: Performed By: #### L 101.9900, L500.2500, L300.3900, L501.6710, L100.0100 ####[facility] [address] [place], [address] Platelets (Bld) [#/Vol] 294 10*3/uL Normal 150-450 [facility] Comment on above: Performed By: #### L 101.9900, L500.2500, L300.3900, L501.6710, L100.0100 ####[facility] [address] [place], [address] RBC (Bld) [#/Vol] 3.69 10*6/uL Low 4.2-5.4 [facility] Comment on above: Performed By: #### L 101.9900, L500.2500, L300.3900, L501.6710, L100.0100 ####[facility] [address] [place], [address] RDW SD 59.6 fl High 35.1-43.9 [facility] Comment on above: Performed By: #### L 101.9900, L500.2500, L300.3900, L501.6710, L100.0100 ####[facility] [address] [place], [address] WBC (Bld) [#/Vol] 7.0 10*3/uL Normal 4.4-11.0 [facility] Comment on above: Performed By: #### L 101.9900, L500.2500, L300.3900, L501.6710, L100.0100 ####[facility] [address] [place], [address] CNOVon 01-13-2024 CNOV Normal [facility] CRPon 01-13-2024 C-REACTIVE PROT 4.74 mg/L High 0.0-3.0 [facility] Comment on above: Result Comment: C-Re active Protein (CRP) provides useful information for thediagnosis, therapy and monitoring of inflammatory processesand associated diseases. For the evaluation of Relative Riskfor Cardiovascular Disease, a High Sensitivity CRP (HSCRP)should be ordered. Performed By: #### L 101.9900, L500.2500, L300.3900, L501.6710, L100.0100 ####[facility] [address] [place], [address] Emergency Department Summary on 01-13-2024 Emergency Department Summary Normal [facility] Erythrocyte Sed Rateon 01-12 SED RATE 8 mm/hr Normal 0-30 [facility] Comment on above: Performed By: #### L 101.9900, L500.2500, L300.3900, L501.6710, L100.0100 ####[facility] [address] [place], [address] Foot min 3 Viewson 4 Foot min 3 Views Normal [facility] Prothrombin Time w/INRon INR Coag (PPP) [Relative time] 2.6 {INR} Normal [facility] Comment on above: Performed By: #### L 101.9900, L500.2500, L300.3900, L501.6710, L100.0100 ####[facility] [address] [place], [address] PT Coag (PPP) [Time] 27.5 s High 11.7-14.9 [facility] Comment on above: Performed By: #### L 101.9900, L500.2500, L300.3900, L501.6710, L100.0100 ####[facility] [address] [place], [address] Venous Duplex US, Unilateral on 01-13-2024 Venous Duplex US, Unilateral Normal [facility] CNOVon 01-11-2024 CNOV Normal [facility] CNPTOUTREACHon 01-06-2024 CNPTOUTREACH Normal [facility] Prothrombin Time w/INRon INR Normal [facility] Comment on above: Result Comment: Canc elled via OM: Order cancelled - Patient discharged Performed By: #### L 300.3900 ####[facility] [address] [place], [address] PROTIME Normal 11.7-14.9 [facility] Comment on above: Result Comment: Canc elled via OM: Order cancelled - Patient discharged Performed By: #### L 300.3900 ####[facility] [address] [place], [address] Basic Metabolic Profile (BMP )on 01-04-2024 BUN Normal 7-18 [facility] Comment on above: Result Comment: Canc elled via OM: Order cancelled - Patient discharged Performed By: #### L 100.0100, L500.2500, L300.3900 ####[facility] [address] [place], [address] BUN/CRE Normal 10-20 [facility] Comment on above: Result Comment: Canc elled via OM: Order cancelled - Patient discharged Performed By: #### L 100.0100, L500.2500, L300.3900 ####[facility] [address] [place], [address] CA,Total Normal 8.5-10.1 [facility] Comment on above: Result Comment: Canc elled via OM: Order cancelled - Patient discharged Performed By: #### L 100.0100, L500.2500, L300.3900 ####[facility] [address] [place], [address] CL Normal 98-107 [facility] Comment on above: Result Comment: Canc elled via OM: Order cancelled - Patient discharged Performed By: #### L 100.0100, L500.2500, L300.3900 ####[facility] [address] [place], [address] CO2 Normal 21.0-32.0 [facility] Comment on above: Result Comment: Canc elled via OM: Order cancelled - Patient discharged Performed By: #### L 100.0100, L500.2500, L300.3900 ####[facility] [address] [place], [address] CREAT,SERUM Normal 0.55-1.02 [facility] Comment on above: Result Comment: Canc elled via OM: Order cancelled - Patient discharged Performed By: #### L 100.0100, L500.2500, L300.3900 ####[facility] [address] [place], [address] EST GFR Normal >60 [facility] Comment on above: Result Comment: Canc elled via OM: Order cancelled - Patient discharged Performed By: #### L 100.0100, L500.2500, L300.3900 ####[facility] [address] [place], [address] EST GFR - AA Normal >60 [facility] Comment on above: Result Comment: Canc elled via OM: Order cancelled - Patient discharged Performed By: #### L 100.0100, L500.2500, L300.3900 ####[facility] [address] [place], [address] GAP Normal 5-15 [facility] Comment on above: Result Comment: Canc elled via OM: Order cancelled - Patient discharged Performed By: #### L 100.0100, L500.2500, L300.3900 ####[facility] [address] [place], [address] GLU Normal 74-106 [facility] Comment on above: Result Comment: Canc elled via OM: Order cancelled - Patient discharged Performed By: #### L 100.0100, L500.2500, L300.3900 ####[facility] [address] [place], [address] Potassium Normal 3.5-5.1 [facility] Comment on above: Result Comment: Canc elled via OM: Order cancelled - Patient discharged Performed By: #### L 100.0100, L500.2500, L300.3900 ####[facility] [address] [place], [address] Basic Metabolic Profile (BMP) Normal 136-145 [facility] Comment on above: Result Comment: Canc elled via OM: Order cancelled - Patient discharged Performed By: #### L 100.0100, L500.2500, L300.3900 ####[facility] [address] [place], [address] CBC W/Diff, Automatedon 09-0 -2023 Absolute Neut Normal 2.0-7.7 [facility] Comment on above: Result Comment: Canc elled via OM: Order cancelled - Patient discharged Performed By: #### L 100.0100, L500.2500, L300.3900 ####[facility] [address] [place], [address] HCT Normal 37-47 [facility] Comment on above: Result Comment: Canc elled via OM: Order cancelled - Patient discharged Performed By: #### L 100.0100, L500.2500, L300.3900 ####[facility] [address] [place], [address] HGB Normal 12.0-15.0 [facility] Comment on above: Result Comment: Canc elled via OM: Order cancelled - Patient discharged Performed By: #### L 100.0100, L500.2500, L300.3900 ####[facility] [address] [place], [address] MCH Normal 27.0-32.0 [facility] Comment on above: Result Comment: Canc elled via OM: Order cancelled - Patient discharged Performed By: #### L 100.0100, L500.2500, L300.3900 ####[facility] [address] [place], [address] MCHC Normal 32-36 [facility] Comment on above: Result Comment: Canc elled via OM: Order cancelled - Patient discharged Performed By: #### L 100.0100, L500.2500, L300.3900 ####[facility] [address] [place], [address] MCV Normal 81-99 [facility] Comment on above: Result Comment: Canc elled via OM: Order cancelled - Patient discharged Performed By: #### L 100.0100, L500.2500, L300.3900 ####[facility] [address] [place], [address] NEUT% Normal 47-70 [facility] Comment on above: Result Comment: Canc elled via OM: Order cancelled - Patient discharged Performed By: #### L 100.0100, L500.2500, L300.3900 ####[facility] [address] [place], [address] PLT Normal 150-450 [facility] Comment on above: Result Comment: Canc elled via OM: Order cancelled - Patient discharged Performed By: #### L 100.0100, L500.2500, L300.3900 ####[facility] [address] [place], [address] RBC Normal 4.2-5.4 [facility] Comment on above: Result Comment: Canc elled via OM: Order cancelled - Patient discharged Performed By: #### L 100.0100, L500.2500, L300.3900 ####[facility] [address] [place], [address] RDW CV Normal 11.6-14.6 [facility] Comment on above: Result Comment: Canc elled via OM: Order cancelled - Patient discharged Performed By: #### L 100.0100, L500.2500, L300.3900 ####[facility] [address] [place], [address] RDW SD Normal 35.1-43.9 [facility] Comment on above: Result Comment: Canc elled via OM: Order cancelled - Patient discharged Performed By: #### L 100.0100, L500.2500, L300.3900 ####[facility] [address] [place], [address] WBC Normal 4.4-11.0 [facility] Comment on above: Result Comment: Canc elled via OM: Order cancelled - Patient discharged Performed By: #### L 100.0100, L500.2500, L300.3900 ####[facility] [address] [place], [address] Prothrombin Time w/INRon INR Normal [facility] Comment on above: Result Comment: Canc elled via OM: Order cancelled - Patient discharged Performed By: #### L 100.0100, L500.2500, L300.3900 ####[facility] [address] [place], [address] PROTIME Normal 11.7-14.9 [facility] Comment on above: Result Comment: Canc elled via OM: Order cancelled - Patient discharged Performed By: #### L 100.0100, L500.2500, L300.3900 ####[facility] [address] [place], [address] Basic Metabolic Profile (BMP )on 01-03-2024 BUN/CRE 29.3 RATIO High 10-20 [facility] Comment on above: Performed By: #### L 500.2500, L100.0100, L300.3900 ####[facility] [address] [place], [address] CA,Total 9.4 mg/dL Normal 8.5-10.1 [facility] Comment on above: Performed By: #### L 500.2500, L100.0100, L300.3900 ####[facility] [address] [place], [address] Chloride [Moles/Vol] 102 mmol/L Normal 98-107 [facility] Comment on above: Performed By: #### L 500.2500, L100.0100, L300.3900 ####[facility] [address] [place], [address] CO2 [Moles/Vol] 25.0 mmol/L Normal 21.0-32.0 [facility] Comment on above: Performed By: #### L 500.2500, L100.0100, L300.3900 ####[facility] [address] [place], [address] Creatinine [Mass/Vol] 0.92 mg/dL Normal 0.55-1.02 [facility] Comment on above: Result Comment: The validity of the calculated GFR GFRAA in patients over70 years has not been determined. Clinical correlation isessential. Performed By: #### L 500.2500, L100.0100, L300.3900 ####[facility] [address] [place], [address] ECRCL 41.82 ml/min Normal [facility] Comment on above: Performed By: #### L 500.2500, L100.0100, L300.3900 ####[facility] [address] [place], [address] EST GFR - AA 75 mL/min Normal >60 [facility] Comment on above: Result Comment: Afri can Sudanese GFR Calc Performed By: #### L 500.2500, L100.0100, L300.3900 ####[facility] [address] [place], [address] GAP 10 Normal 5-15 [facility] Comment on above: Performed By: #### L 500.2500, L100.0100, L300.3900 ####[facility] [address] [place], [address] GFR/1.73 sq M.predicted among non-blacks MDRD (S/P/Bld) [Vol rate/Area] 62 mL/min/{1.73_m2} Normal >60 [facility] Comment on above: Result Comment: Non- GFR Calc Performed By: #### L 500.2500, L100.0100, L300.3900 ####[facility] [address] [place], [address] Glucose [Mass/Vol] 159 mg/dL High 74-106 [facility] Comment on above: Result Comment: Fast ing Glucose result greater than or equal to 126 mg/dLsuggests DIABETES MELLITUS per A.D.A. criteria. Performed By: #### L 500.2500, L100.0100, L300.3900 ####[facility] [address] [place], [address] Potassium [Moles/Vol] 3.2 mmol/L Low 3.5-5.1 [facility] Comment on above: Performed By: #### L 500.2500, L100.0100, L300.3900 ####[facility] [address] [place], [address] Sodium [Moles/Vol] 137 mmol/L Normal 136-145 [facility] Comment on above: Performed By: #### L 500.2500, L100.0100, L300.3900 ####[facility] [address] [place], [address] Urea nitrogen [Mass/Vol] 27 mg/dL High 7-18 [facility] Comment on above: Performed By: #### L 500.2500, L100.0100, L300.3900 ####[facility] [address] [place], [address] Bedside Glucoseon 01-03-2024 FINGERSTICK GLU 218 mg/dL High 74-106 [facility] Comment on above: Result Comment: LEVI GEMENT OF PATIENT CARE PER NURSING PROTOCOL Performed By: #### L 501.080 ####[facility] [address] [place], [address] FINGERSTICK GLU 161 mg/dL High 74-106 [facility] Comment on above: Result Comment: LEVI GEMENT OF PATIENT CARE PER NURSING PROTOCOL Performed By: #### L 501.080 ####[facility] [address] [place], [address] CBC W/Diff, Automatedon 09-0 -2023 Absolute Lymph 1.90 X10 3/uL Normal 0.83-4.51 [facility] Comment on above: Performed By: #### L 500.2500, L100.0100, L300.3900 ####[facility] [address] [place], [address] Absolute Neut 4.5 X10 3/uL Normal 2.0-7.7 [facility] Comment on above: Performed By: #### L 500.2500, L100.0100, L300.3900 ####[facility] [address] [place], [address] Basophils/100 WBC (Bld) 0.9 % Normal 0-1 [facility] Comment on above: Performed By: #### L 500.2500, L100.0100, L300.3900 ####[facility] [address] [place], [address] Eosinophils/100 WBC (Bld) 3.9 % Normal 0-5 [facility] Comment on above: Performed By: #### L 500.2500, L100.0100, L300.3900 ####[facility] [address] [place], [address] Erythrocyte distribution width (RBC) [Ratio] 15.9 % High 11.6-14.6 [facility] Comment on above: Performed By: #### L 500.2500, L100.0100, L300.3900 ####[facility] [address] [place], [address] Hematocrit (Bld) [Volume fraction] 35.0 % Low 37-47 [facility] Comment on above: Performed By: #### L 500.2500, L100.0100, L300.3900 ####[facility] [address] [place], [address] Hemoglobin (Bld) [Mass/Vol] 11.2 g/dL Low 12.0-15.0 [facility] Comment on above: Performed By: #### L 500.2500, L100.0100, L300.3900 ####[facility] [address] [place], [address] IG% 0.400 Normal 0.0-0.9 [facility] Comment on above: Result Comment: IG% - Immature Granulocytes (promyelocytes, myelocytes andmetamyelocytes) > 1% indicates that a LEFT SHIFT is Present. Performed By: #### L 500.2500, L100.0100, L300.3900 ####[facility] [address] [place], [address] Lymphocytes/100 WBC (Bld) 24.7 % Normal 19-41 [facility] Comment on above: Performed By: #### L 500.2500, L100.0100, L300.3900 ####[facility] [address] [place], [address] MCH (RBC) [Entitic mass] 31.2 pg Normal 27.0-32.0 [facility] Comment on above: Performed By: #### L 500.2500, L100.0100, L300.3900 ####[facility] [address] [place], [address] MCHC (RBC) [Mass/Vol] 32.0 g/dL Normal 32-36 [facility] Comment on above: Performed By: #### L 500.2500, L100.0100, L300.3900 ####[facility] [address] [place], [address] MCV (RBC) [Entitic vol] 97.5 fL Normal 81-99 [facility] Comment on above: Performed By: #### L 500.2500, L100.0100, L300.3900 ####[facility] [address] [place], [address] Monocytes/100 WBC (Bld) 12.2 % High 0-10 [facility] Comment on above: Performed By: #### L 500.2500, L100.0100, L300.3900 ####[facility] [address] [place], [address] Neutrophils/100 WBC (Bld) 57.9 % Normal 47-70 [facility] Comment on above: Performed By: #### L 500.2500, L100.0100, L300.3900 ####[facility] [address] [place], [address] Nucleated RBC (Bld) [#/Vol] 0 10*3/uL Normal 0-5 [facility] Comment on above: Performed By: #### L 500.2500, L100.0100, L300.3900 ####[facility] [address] [place], [address] Platelet mean volume (Bld) [Entitic vol] 10.2 fL Normal 6.2-12.0 [facility] Comment on above: Performed By: #### L 500.2500, L100.0100, L300.3900 ####[facility] [address] [place], [address] Platelets (Bld) [#/Vol] 283 10*3/uL Normal 150-450 [facility] Comment on above: Performed By: #### L 500.2500, L100.0100, L300.3900 ####[facility] [address] [place], [address] RBC (Bld) [#/Vol] 3.59 10*6/uL Low 4.2-5.4 [facility] Comment on above: Performed By: #### L 500.2500, L100.0100, L300.3900 ####[facility] [address] [place], [address] RDW SD 56.5 fl High 35.1-43.9 [facility] Comment on above: Performed By: #### L 500.2500, L100.0100, L300.3900 ####[facility] [address] [place], [address] WBC (Bld) [#/Vol] 7.7 10*3/uL Normal 4.4-11.0 [facility] Comment on above: Performed By: #### L 500.2500, L100.0100, L300.3900 ####[facility] [address] [place], [address] Discharge Instructionon 09-0 Discharge Instruction Normal [facility] Prothrombin Time w/INRon INR Coag (PPP) [Relative time] 1.8 {INR} Normal [facility] Comment on above: Performed By: #### L 500.2500, L100.0100, L300.3900 ####[facility] [address] [place], [address] PT Coag (PPP) [Time] 21.2 s High 11.7-14.9 [facility] Comment on above: Performed By: #### L 500.2500, L100.0100, L300.3900 ####[facility] [address] [place], [address] Vitamin B12on 01-03-2024 Cobalamin (Vitamin B12) [Mass/Vol] 333 pg/mL Normal 211-911 [facility] Comment on above: Performed By: #### L 503.0105, L300.3900, L501.5200, L501.2300, L506.0250, L503.6550, L100.0500, L500.4050, L500.4100, L501.9520, L503.6030 ####[facility] [address] [place], [address] Basic Metabolic Profile (BMP )on 01-02-2024 BUN/CRE 23.2 RATIO High 10-20 [facility] Comment on above: Performed By: #### L 500.2500, L100.0100 ####[facility] [address] [place], [address] CA,Total 9.8 mg/dL Normal 8.5-10.1 [facility] Comment on above: Performed By: #### L 500.2500, L100.0100 ####[facility] [address] [place], [address] Chloride [Moles/Vol] 102 mmol/L Normal 98-107 [facility] Comment on above: Performed By: #### L 500.2500, L100.0100 ####[facility] [address] [place], [address] CO2 [Moles/Vol] 27.0 mmol/L Normal 21.0-32.0 [facility] Comment on above: Performed By: #### L 500.2500, L100.0100 ####[facility] [address] [place], [address] Creatinine [Mass/Vol] 0.86 mg/dL Normal 0.55-1.02 [facility] Comment on above: Result Comment: The validity of the calculated GFR GFRAA in patients over70 years has not been determined. Clinical correlation isessential. Performed By: #### L 500.2500, L100.0100 ####[facility] [address] [place], [address] ECRCL 45.39 ml/min Normal [facility] Comment on above: Performed By: #### L 500.2500, L100.0100 ####[facility] [address] [place], [address] EST GFR - AA 81 mL/min Normal >60 [facility] Comment on above: Result Comment: Afri can Sudanese GFR Calc Performed By: #### L 500.2500, L100.0100 ####[facility] [address] [place], [address] GAP 8 Normal 5-15 [facility] Comment on above: Performed By: #### L 500.2500, L100.0100 ####[facility] [address] [place], [address] GFR/1.73 sq M.predicted among non-blacks MDRD (S/P/Bld) [Vol rate/Area] 67 mL/min/{1.73_m2} Normal >60 [facility] Comment on above: Result Comment: Non- GFR Calc Performed By: #### L 500.2500, L100.0100 ####[facility] [address] [place], [address] Glucose [Mass/Vol] 151 mg/dL High 74-106 [facility] Comment on above: Result Comment: Fast ing Glucose result greater than or equal to 126 mg/dLsuggests DIABETES MELLITUS per A.D.A. criteria. Performed By: #### L 500.2500, L100.0100 ####[facility] [address] [place], [address] Potassium [Moles/Vol] 3.4 mmol/L Low 3.5-5.1 [facility] Comment on above: Performed By: #### L 500.2500, L100.0100 ####[facility] [address] [place], [address] Sodium [Moles/Vol] 137 mmol/L Normal 136-145 [facility] Comment on above: Performed By: #### L 500.2500, L100.0100 ####[facility] [address] [place], [address] Urea nitrogen [Mass/Vol] 20 mg/dL High 7-18 [facility] Comment on above: Performed By: #### L 500.2500, L100.0100 ####[facility] [address] [place], [address] Bedside Glucoseon 01-02-2024 FINGERSTICK GLU 215 mg/dL High 74-106 [facility] Comment on above: Result Comment: LEVI GEMENT OF PATIENT CARE PER NURSING PROTOCOL Performed By: #### L 501.080 ####[facility] [address] [place], [address] FINGERSTICK GLU 179 mg/dL High 74-106 [facility] Comment on above: Result Comment: LEVI GEMENT OF PATIENT CARE PER NURSING PROTOCOL Performed By: #### L 501.080 ####[facility] [address] [place], [address] FINGERSTICK GLU 146 mg/dL High 74-106 [facility] Comment on above: Result Comment: LEVI GEMENT OF PATIENT CARE PER NURSING PROTOCOL Performed By: #### L 501.080 ####[facility] [address] [place], [address] CBC W/Diff, Automatedon Absolute Lymph 1.79 X10 3/uL Normal 0.83-4.51 [facility] Comment on above: Performed By: #### L 500.2500, L100.0100 ####[facility] [address] [place], [address] Absolute Neut 3.8 X10 3/uL Normal 2.0-7.7 [facility] Comment on above: Performed By: #### L 500.2500, L100.0100 ####[facility] [address] [place], [address] Basophils/100 WBC (Bld) 0.7 % Normal 0-1 [facility] Comment on above: Performed By: #### L 500.2500, L100.0100 ####[facility] [address] [place], [address] Eosinophils/100 WBC (Bld) 3.8 % Normal 0-5 [facility] Comment on above: Performed By: #### L 500.2500, L100.0100 ####[facility] [address] [place], [address] Erythrocyte distribution width (RBC) [Ratio] 16.1 % High 11.6-14.6 [facility] Comment on above: Performed By: #### L 500.2500, L100.0100 ####[facility] [address] [place], [address] Hematocrit (Bld) [Volume fraction] 35.0 % Low 37-47 [facility] Comment on above: Performed By: #### L 500.2500, L100.0100 ####[facility] [address] [place], [address] Hemoglobin (Bld) [Mass/Vol] 11.2 g/dL Low 12.0-15.0 [facility] Comment on above: Performed By: #### L 500.2500, L100.0100 ####[facility] [address] [place], [address] IG% 0.100 Normal 0.0-0.9 [facility] Comment on above: Result Comment: IG% - Immature Granulocytes (promyelocytes, myelocytes andmetamyelocytes) > 1% indicates that a LEFT SHIFT is Present. Performed By: #### L 500.2500, L100.0100 ####[facility] [address] [place], [address] Lymphocytes/100 WBC (Bld) 26.4 % Normal 19-41 [facility] Comment on above: Performed By: #### L 500.2500, L100.0100 ####[facility] [address] [place], [address] MCH (RBC) [Entitic mass] 31.3 pg Normal 27.0-32.0 [facility] Comment on above: Performed By: #### L 500.2500, L100.0100 ####[facility] [address] [place], [address] MCHC (RBC) [Mass/Vol] 32.0 g/dL Normal 32-36 [facility] Comment on above: Performed By: #### L 500.2500, L100.0100 ####[facility] [address] [place], [address] MCV (RBC) [Entitic vol] 97.8 fL Normal 81-99 [facility] Comment on above: Performed By: #### L 500.2500, L100.0100 ####[facility] [address] [place], [address] Monocytes/100 WBC (Bld) 13.1 % High 0-10 [facility] Comment on above: Performed By: #### L 500.2500, L100.0100 ####[facility] [address] [place], [address] Neutrophils/100 WBC (Bld) 55.9 % Normal 47-70 [facility] Comment on above: Performed By: #### L 500.2500, L100.0100 ####[facility] [address] [place], [address] Nucleated RBC (Bld) [#/Vol] 0.3 10*3/uL Normal 0-5 [facility] Comment on above: Performed By: #### L 500.2500, L100.0100 ####[facility] [address] [place], [address] Platelet mean volume (Bld) [Entitic vol] 11.1 fL Normal 6.2-12.0 [facility] Comment on above: Performed By: #### L 500.2500, L100.0100 ####[facility] [address] [place], [address] Platelets (Bld) [#/Vol] 271 10*3/uL Normal 150-450 [facility] Comment on above: Performed By: #### L 500.2500, L100.0100 ####[facility] [address] [place], [address] RBC (Bld) [#/Vol] 3.58 10*6/uL Low 4.2-5.4 [facility] Comment on above: Performed By: #### L 500.2500, L100.0100 ####[facility] [address] [place], [address] RDW SD 57.3 fl High 35.1-43.9 [facility] Comment on above: Performed By: #### L 500.2500, L100.0100 ####[facility] [address] [place], [address] WBC (Bld) [#/Vol] 6.8 10*3/uL Normal 4.4-11.0 [facility] Comment on above: Performed By: #### L 500.2500, L100.0100 ####[facility] [address] [place], [address] Bedside Glucoseon 01-01-2024 FINGERSTICK GLU 197 mg/dL High 74-106 [facility] Comment on above: Result Comment: LEVI GEMENT OF PATIENT CARE PER NURSING PROTOCOL Performed By: #### L 501.080 ####[facility] [address] [place], [address] FINGERSTICK GLU 166 mg/dL High 74-106 [facility] Comment on above: Result Comment: LEVI GEMENT OF PATIENT CARE PER NURSING PROTOCOL Performed By: #### L 501.080 ####[facility] [address] [place], [address] FINGERSTICK GLU 164 mg/dL High 74-106 [facility] Comment on above: Result Comment: LEVI GEMENT OF PATIENT CARE PER NURSING PROTOCOL Performed By: #### L 501.080 ####[facility] [address] [place], [address] CBC-Complete Blood Cnt No [facility] 01-01-2024 Erythrocyte distribution width (RBC) [Ratio] 16.3 % High 11.6-14.6 [facility] Comment on above: Performed By: #### L 503.0105, L300.3900, L501.5200, L501.2300, L506.0250, L503.6550, L100.0500, L500.4050, L500.4100, L501.9520, L503.6030 ####[facility] [address] [place], [address] Hematocrit (Bld) [Volume fraction] 33.4 % Low 37-47 [facility] Comment on above: Performed By: #### L 503.0105, L300.3900, L501.5200, L501.2300, L506.0250, L503.6550, L100.0500, L500.4050, L500.4100, L501.9520, L503.6030 ####[facility] [address] [place], [address] Hemoglobin (Bld) [Mass/Vol] 10.7 g/dL Low 12.0-15.0 [facility] Comment on above: Performed By: #### L 503.0105, L300.3900, L501.5200, L501.2300, L506.0250, L503.6550, L100.0500, L500.4050, L500.4100, L501.9520, L503.6030 ####[facility] [address] [place], [address] MCH (RBC) [Entitic mass] 31.1 pg Normal 27.0-32.0 [facility] Comment on above: Performed By: #### L 503.0105, L300.3900, L501.5200, L501.2300, L506.0250, L503.6550, L100.0500, L500.4050, L500.4100, L501.9520, L503.6030 ####[facility] [address] [place], [place], [id number] MCHC (RBC) [Mass/Vol] 32.0 g/dL Normal 32-36 [facility] Comment on above: Performed By: #### L 503.0105, L300.3900, L501.5200, L501.2300, L506.0250, L503.6550, L100.0500, L500.4050, L500.4100, L501.9520, L503.6030 ####[facility] [address] [facility] [place], [address] MCV (RBC) [Entitic vol] 97.1 fL Normal 81-99 [facility] Comment on above: Performed By: #### L 503.0105, L300.3900, L501.5200, L501.2300, L506.0250, L503.6550, L100.0500, L500.4050, L500.4100, L501.9520, L503.6030 ####[facility] [address] [place], [address] Platelet mean volume (Bld) [Entitic vol] 11.3 fL Normal 6.2-12.0 [facility] Comment on above: Performed By: #### L 503.0105, L300.3900, L501.5200, L501.2300, L506.0250, L503.6550, L100.0500, L500.4050, L500.4100, L501.9520, L503.6030 ####[facility] [address] [place], [address] Platelets (Bld) [#/Vol] 279 10*3/uL Normal 150-450 [facility] Comment on above: Performed By: #### L 503.0105, L300.3900, L501.5200, L501.2300, L506.0250, L503.6550, L100.0500, L500.4050, L500.4100, L501.9520, L503.6030 ####[facility] [address] [place], [address] RBC (Bld) [#/Vol] 3.44 10*6/uL Low 4.2-5.4 [facility] Comment on above: Performed By: #### L 503.0105, L300.3900, L501.5200, L501.2300, L506.0250, L503.6550, L100.0500, L500.4050, L500.4100, L501.9520, L503.6030 ####[facility] [address] [place], [address] RDW SD 57.1 fl High 35.1-43.9 [facility] Comment on above: Performed By: #### L 503.0105, L300.3900, L501.5200, L501.2300, L506.0250, L503.6550, L100.0500, L500.4050, L500.4100, L501.9520, L503.6030 ####[facility] [address] [place], [place], [id number] WBC (Bld) [#/Vol] 7.7 10*3/uL Normal 4.4-11.0 [facility] Comment on above: Performed By: #### L 503.0105, L300.3900, L501.5200, L501.2300, L506.0250, L503.6550, L100.0500, L500.4050, L500.4100, L501.9520, L503.6030 ####[facility] [address] [place], [place], [phone] Comprehensive Metabolic Prof tnon 01-01-2024 Albumin [Mass/Vol] 3.2 g/dL Normal 3.2-5.0 [facility] Comment on above: Order Comment: Comme nts: May add to ED labs Performed By: #### L 503.0105, L300.3900, L501.5200, L501.2300, L506.0250, L503.6550, L100.0500, L500.4050, L500.4100, L501.9520, L503.6030 ####[facility] [address] [place], [place], [phone] Albumin/Globulin [Mass ratio] 0.9 {ratio} Normal 0.9-2.4 [facility] Comment on above: Order Comment: Comme nts: May add to ED labs Performed By: #### L 503.0105, L300.3900, L501.5200, L501.2300, L506.0250, L503.6550, L100.0500, L500.4050, L500.4100, L501.9520, L503.6030 ####[facility] [address] [place], [place], [id number] ALK P 69 U/L Normal 45-117 [facility] Comment on above: Order Comment: Evelyn nts: May add to ED labs Performed By: #### L 503.0105, L300.3900, L501.5200, L501.2300, L506.0250, L503.6550, L100.0500, L500.4050, L500.4100, L501.9520, L503.6030 ####[facility] [address] [place], [address] ALT [Catalytic activity/Vol] 15 U/L Normal 13-56 [facility] Comment on above: Order Comment: Evelyn nts: May add to ED labs Performed By: #### L 503.0105, L300.3900, L501.5200, L501.2300, L506.0250, L503.6550, L100.0500, L500.4050, L500.4100, L501.9520, L503.6030 ####[facility] [address] [place], [place], [phone] AST [Catalytic activity/Vol] 16 U/L Normal 15-37 [facility] Comment on above: Order Comment: Evelyn nts: May add to ED labs Performed By: #### L 503.0105, L300.3900, L501.5200, L501.2300, L506.0250, L503.6550, L100.0500, L500.4050, L500.4100, L501.9520, L503.6030 ####[facility] [address] [place], [place], [phone] Bilirubin [Mass/Vol] 0.70 mg/dL Normal 0.20-1.00 [facility] Comment on above: Order Comment: Evelyn nts: May add to ED labs Result Comment: For patients on eltrombopag therapy, use of Dimension [place] TBIL is not recommended. Performed By: #### L 503.0105, L300.3900, L501.5200, L501.2300, L506.0250, L503.6550, L100.0500, L500.4050, L500.4100, L501.9520, L503.6030 ####[facility] [address] [place], [address] BUN/CRE 22.4 RATIO High 10-20 [facility] Comment on above: Order Comment: Evelyn nts: May add to ED labs Performed By: #### L 503.0105, L300.3900, L501.5200, L501.2300, L506.0250, L503.6550, L100.0500, L500.4050, L500.4100, L501.9520, L503.6030 ####[facility] [address] [place], [address] CA,Total 9.1 mg/dL Normal 8.5-10.1 [facility] Comment on above: Order Comment: Evelyn nts: May add to ED labs Performed By: #### L 503.0105, L300.3900, L501.5200, L501.2300, L506.0250, L503.6550, L100.0500, L500.4050, L500.4100, L501.9520, L503.6030 ####[facility] [address] [place], [address] Chloride [Moles/Vol] 101 mmol/L Normal 98-107 [facility] Comment on above: Order Comment: Evelyn nts: May add to ED labs Performed By: #### L 503.0105, L300.3900, L501.5200, L501.2300, L506.0250, L503.6550, L100.0500, L500.4050, L500.4100, L501.9520, L503.6030 ####[facility] [address] [place], [address] CO2 [Moles/Vol] 25.0 mmol/L Normal 21.0-32.0 [facility] Comment on above: Order Comment: Comme nts: May add to ED labs Performed By: #### L 503.0105, L300.3900, L501.5200, L501.2300, L506.0250, L503.6550, L100.0500, L500.4050, L500.4100, L501.9520, L503.6030 ####[facility] [address] [place], [place], [phone] Creatinine [Mass/Vol] 0.98 mg/dL Normal 0.55-1.02 [facility] Comment on above: Order Comment: Comme nts: May add to ED labs Result Comment: The validity of the calculated GFR GFRAA in patients over70 years has not been determined. Clinical correlation isessential. Performed By: #### L 503.0105, L300.3900, L501.5200, L501.2300, L506.0250, L503.6550, L100.0500, L500.4050, L500.4100, L501.9520, L503.6030 ####[facility] [address] [place], [place], [phone] ECRCL 39.72 ml/min Normal [facility] Comment on above: Order Comment: Comme nts: May add to ED labs Performed By: #### L 503.0105, L300.3900, L501.5200, L501.2300, L506.0250, L503.6550, L100.0500, L500.4050, L500.4100, L501.9520, L503.6030 ####[facility] [address] [place], [place], [phone] EST GFR - AA 69 mL/min Normal >60 [facility] Comment on above: Order Comment: Comme nts: May add to ED labs Result Comment: Afri can Sudanese GFR Calc Performed By: #### L 503.0105, L300.3900, L501.5200, L501.2300, L506.0250, L503.6550, L100.0500, L500.4050, L500.4100, L501.9520, L503.6030 ####[facility] [address] [place], [place], [phone] GAP 11 Normal 5-15 [facility] Comment on above: Order Comment: Commjoann nts: May add to ED labs Performed By: #### L 503.0105, L300.3900, L501.5200, L501.2300, L506.0250, L503.6550, L100.0500, L500.4050, L500.4100, L501.9520, L503.6030 ####[facility] [address] [place], [place], [phone] GFR/1.73 sq M.predicted among non-blacks MDRD (S/P/Bld) [Vol rate/Area] 57 mL/min/{1.73_m2} Low >60 [facility] Comment on above: Order Comment: Evelyn nts: May add to ED labs Result Comment: Non- GFR Calc Performed By: #### L 503.0105, L300.3900, L501.5200, L501.2300, L506.0250, L503.6550, L100.0500, L500.4050, L500.4100, L501.9520, L503.6030 ####[facility] [address] [place], [place], [phone] Globulin (S) [Mass/Vol] 3.7 g/dL Normal 2.2-4.2 [facility] Comment on above: Order Comment: Evelyn nts: May add to ED labs Performed By: #### L 503.0105, L300.3900, L501.5200, L501.2300, L506.0250, L503.6550, L100.0500, L500.4050, L500.4100, L501.9520, L503.6030 ####[facility] [address] [place], [address] Glucose [Mass/Vol] 161 mg/dL High 74-106 [facility] Comment on above: Order Comment: Evelyn nts: May add to ED labs Result Comment: Fast ing Glucose result greater than or equal to 126 mg/dLsuggests DIABETES MELLITUS per A.D.A. criteria. Performed By: #### L 503.0105, L300.3900, L501.5200, L501.2300, L506.0250, L503.6550, L100.0500, L500.4050, L500.4100, L501.9520, L503.6030 ####[facility] [address], [address] Potassium [Moles/Vol] 3.0 mmol/L Low 3.5-5.1 [facility] Comment on above: Order Comment: Evelyn nts: May add to ED labs Performed By: #### L 503.0105, L300.3900, L501.5200, L501.2300, L506.0250, L503.6550, L100.0500, L500.4050, L500.4100, L501.9520, L503.6030 ####[facility] [address] [place], [address] Sodium [Moles/Vol] 137 mmol/L Normal 136-145 [facility] Comment on above: Order Comment: Evelyn nts: May add to ED labs Performed By: #### L 503.0105, L300.3900, L501.5200, L501.2300, L506.0250, L503.6550, L100.0500, L500.4050, L500.4100, L501.9520, L503.6030 ####[facility] [address] [place], [address] T PROT 6.9 g/dL Normal 6.4-8.2 [facility] Comment on above: Order Comment: Comme nts: May add to ED labs Performed By: #### L 503.0105, L300.3900, L501.5200, L501.2300, L506.0250, L503.6550, L100.0500, L500.4050, L500.4100, L501.9520, L503.6030 ####[facility] [address] [place], [place], [phone] Urea nitrogen [Mass/Vol] 22 mg/dL High 7-18 [facility] Comment on above: Order Comment: Comme nts: May add to ED labs Performed By: #### L 503.0105, L300.3900, L501.5200, L501.2300, L506.0250, L503.6550, L100.0500, L500.4050, L500.4100, L501.9520, L503.6030 ####[facility] [address] [facility] [place], [place], [phone] Ferritinon 01-01-2024 Ferritin [Mass/Vol] 257 ng/mL High 8-252 [facility] Comment on above: Order Comment: Evelyn nts: May add to ED labs Performed By: #### L 503.0105, L300.3900, L501.5200, L501.2300, L506.0250, L503.6550, L100.0500, L500.4050, L500.4100, L501.9520, L503.6030 ####[facility] [address] [facility] [address] [place], [place], [phone] Folates, (Folic Acid)on FOLATES 9.90 ng/mL Normal 3.1-55.4 [facility] Comment on above: Order Comment: Evelyn nts: May add to ED labs Performed By: #### L 503.0105, L300.3900, L501.5200, L501.2300, L506.0250, L503.6550, L100.0500, L500.4050, L500.4100, L501.9520, L503.6030 ####[facility] [address] [place], [place], [phone] Hemoglobin A1con 01-01-2024 HbA1c (Bld) [Mass fraction] 6.8 % High 3.8-5.6 [facility] Comment on above: Result Comment: Norm al < 5.7 % Prediabetic 5.7 - 6.4 % Diabetic >or= 6.5 % Please note range changes. Performed By: #### L 501.9985 ####[facility] [address] [place], [place], [phone] Iron+Iron Binding Capacityon 01-01-2024 Iron [Mass/Vol] 36 ug/dL Low 50-170 [facility] Comment on above: Order Comment: Comme nts: May add to ED labs Performed By: #### L 503.0105, L300.3900, L501.5200, L501.2300, L506.0250, L503.6550, L100.0500, L500.4050, L500.4100, L501.9520, L503.6030 ####[facility] [address] [place], [place], [phone] IRON SATURATION 12.6 Low 15.0-55.0 [facility] Comment on above: Order Comment: Comme nts: May add to ED labs Performed By: #### L 503.0105, L300.3900, L501.5200, L501.2300, L506.0250, L503.6550, L100.0500, L500.4050, L500.4100, L501.9520, L503.6030 ####[facility] [address] [place], [place], [phone] TIBC 286 ug/dL Normal 250-450 [facility] Comment on above: Order Comment: Comme nts: May add to ED labs Performed By: #### L 503.0105, L300.3900, L501.5200, L501.2300, L506.0250, L503.6550, L100.0500, L500.4050, L500.4100, L501.9520, L503.6030 ####[facility] [address] [place], [address] Lipid Profileon 01-01-2024 Cholesterol [Mass/Vol] 99 mg/dL Normal 200 [facility] Comment on above: Order Comment: Comme nts: May add to ED labs Result Comment: <200 mg/dL Desirable 200-240 mg/dL Borderline >240 mg/dL High Risk Performed By: #### L 503.0105, L300.3900, L501.5200, L501.2300, L506.0250, L503.6550, L100.0500, L500.4050, L500.4100, L501.9520, L503.6030 ####[facility] [address] [place], [address] Cholesterol in HDL [Mass/Vol] 23 mg/dL Low [facility] Comment on above: Order Comment: Comme nts: May add to ED labs Result Comment: The drugs N-Acetylcysteine and Metamizole may falselydepress this assay. Reference Range HDL <40 mg/dL Low HDL Cholesterol HDL >or= 60 mg/dL High HDL Cholesterol Performed By: #### L 503.0105, L300.3900, L501.5200, L501.2300, L506.0250, L503.6550, L100.0500, L500.4050, L500.4100, L501.9520, L503.6030 ####[facility] [address] [place], [address] Cholesterol in LDL [Mass/Vol] 38 mg/dL Normal 0-130 [facility] Comment on above: Order Comment: Comme nts: May add to ED labs Performed By: #### L 503.0105, L300.3900, L501.5200, L501.2300, L506.0250, L503.6550, L100.0500, L500.4050, L500.4100, L501.9520, L503.6030 ####[facility] [address] [place], [place], [phone] Cholesterol in VLDL [Mass/Vol] 38 mg/dL Normal 5-40 [facility] Comment on above: Order Comment: Commjoann nts: May add to ED labs Performed By: #### L 503.0105, L300.3900, L501.5200, L501.2300, L506.0250, L503.6550, L100.0500, L500.4050, L500.4100, L501.9520, L503.6030 ####[facility] [address] [facility] [address] [place], [place], [phone] Triglyceride [Mass/Vol] 191 mg/dL Normal [facility] Comment on above: Order Comment: Evelyn nts: May add to ED labs Result Comment: The drugs N-Acetylcysteine and Metamizole may falselydepress this assay.Serum Triglycerides Reference Interval Normal <150 mg/dL Borderline high 150 - 199 mg/dL High 200 - 499 mg/dL Very High > or = 500 mg/dL Performed By: #### L 503.0105, L300.3900, L501.5200, L501.2300, L506.0250, L503.6550, L100.0500, L500.4050, L500.4100, L501.9520, L503.6030 ####[facility] [address] [place], [place], [id number] Magnesiumon 01-01-2024 Magnesium [Mass/Vol] 1.6 mg/dL Normal 1.6-2.6 [facility] Comment on above: Order Comment: Evelyn nts: May add to ED labs Performed By: #### L 503.0105, L300.3900, L501.5200, L501.2300, L506.0250, L503.6550, L100.0500, L500.4050, L500.4100, L501.9520, L503.6030 ####[facility] [address] [place], [place], [id number] Phosphoruson 01-01-2024 Phosphate [Mass/Vol] 4.0 mg/dL Normal 2.5-4.9 [facility] Comment on above: Order Comment: Comme nts: May add to ED labs Performed By: #### L 503.0105, L300.3900, L501.5200, L501.2300, L506.0250, L503.6550, L100.0500, L500.4050, L500.4100, L501.9520, L503.6030 ####[facility] [address] [place], [place], [id number] Prothrombin Time w/INRon INR Coag (PPP) [Relative time] 2.1 {INR} Normal [facility] Comment on above: Performed By: #### L 503.0105, L300.3900, L501.5200, L501.2300, L506.0250, L503.6550, L100.0500, L500.4050, L500.4100, L501.9520, L503.6030 ####[facility] [address] [place], [place], [id number] PT Coag (PPP) [Time] 23.2 s High 11.7-14.9 [facility] Comment on above: Performed By: #### L 503.0105, L300.3900, L501.5200, L501.2300, L506.0250, L503.6550, L100.0500, L500.4050, L500.4100, L501.9520, L503.6030 ####[facility] [address] [place], [place], [address] Thyroid Stim Hormone (TSH)on 01-01-2024 TSH 1.920 uIU/mL Normal 0.358-3.740 [facility] Comment on above: Order Comment: Comme nts: May add to ED labs Performed By: #### L 503.0105, L300.3900, L501.5200, L501.2300, L506.0250, L503.6550, L100.0500, L500.4050, L500.4100, L501.9520, L503.6030 ####[facility] [address] [place], [address] 12 Lead EKGon 12-31-2023 12 Lead EKG Normal [facility] BNP,B-Type NATRIURETIC PEPTI Juvenal 12-31-2023 Natriuretic peptide B (Bld) [Mass/Vol] 379.2 pg/mL High 0-100 [facility] Comment on above: Performed By: #### L 503.6620, L300.3900, L100.0100, L300.4310, L500.2500, L501.4020, L500.3400, L503.6005 ####[facility] [address] [place], [address] Basic Metabolic Profile (BMP )on 12-31-2023 BUN/CRE 24.2 RATIO High 10-20 [facility] Comment on above: Order Comment: 'TROP ' Serial specimen #1, #2 or #3: 1 Performed By: #### L 503.6620, L300.3900, L100.0100, L300.4310, L500.2500, L501.4020, L500.3400, L503.6005 ####[facility] [address] [place], [address] CA,Total 9.6 mg/dL Normal 8.5-10.1 [facility] Comment on above: Order Comment: 'TROP ' Serial specimen #1, #2 or #3: 1 Performed By: #### L 503.6620, L300.3900, L100.0100, L300.4310, L500.2500, L501.4020, L500.3400, L503.6005 ####[facility] [address] [place], [address] Chloride [Moles/Vol] 105 mmol/L Normal 98-107 [facility] Comment on above: Order Comment: 'TROP ' Serial specimen #1, #2 or #3: 1 Performed By: #### L 503.6620, L300.3900, L100.0100, L300.4310, L500.2500, L501.4020, L500.3400, L503.6005 ####[facility] [address] [place], [address] CO2 [Moles/Vol] 25.0 mmol/L Normal 21.0-32.0 [facility] Comment on above: Order Comment: 'TROP ' Serial specimen #1, #2 or #3: 1 Performed By: #### L 503.6620, L300.3900, L100.0100, L300.4310, L500.2500, L501.4020, L500.3400, L503.6005 ####[facility] [address] [place], [address] Creatinine [Mass/Vol] 0.95 mg/dL Normal 0.55-1.02 [facility] Comment on above: Order Comment: 'TROP ' Serial specimen #1, #2 or #3: 1 Result Comment: The validity of the calculated GFR GFRAA in patients over70 years has not been determined. Clinical correlation isessential. Performed By: #### L 503.6620, L300.3900, L100.0100, L300.4310, L500.2500, L501.4020, L500.3400, L503.6005 ####[facility] [address] [place], [address] ECRCL 41.36 ml/min Normal [facility] Comment on above: Order Comment: 'TROP ' Serial specimen #1, #2 or #3: 1 Performed By: #### L 503.6620, L300.3900, L100.0100, L300.4310, L500.2500, L501.4020, L500.3400, L503.6005 ####[facility] [address] [place], [address] EST GFR - AA 72 mL/min Normal >60 [facility] Comment on above: Order Comment: 'TROP ' Serial specimen #1, #2 or #3: 1 Result Comment: Afri can Sudanese GFR Calc Performed By: #### L 503.6620, L300.3900, L100.0100, L300.4310, L500.2500, L501.4020, L500.3400, L503.6005 ####[facility] [address] [place], [place], [id number](173) GAP 9 Normal 5-15 [facility] Comment on above: Order Comment: 'TROP ' Serial specimen #1, #2 or #3: 1 Performed By: #### L 503.6620, L300.3900, L100.0100, L300.4310, L500.2500, L501.4020, L500.3400, L503.6005 ####[facility] [address] [place], [place], [phone](192) GFR/1.73 sq M.predicted among non-blacks MDRD (S/P/Bld) [Vol rate/Area] 60 mL/min/{1.73_m2} Normal >60 [facility] Comment on above: Order Comment: 'TROP ' Serial specimen #1, #2 or #3: 1 Result Comment: Non- GFR Calc Performed By: #### L 503.6620, L300.3900, L100.0100, L300.4310, L500.2500, L501.4020, L500.3400, L503.6005 ####[facility] [address] [place], [place], [phone](539) Glucose [Mass/Vol] 132 mg/dL High 74-106 [facility] Comment on above: Order Comment: 'TROP ' Serial specimen #1, #2 or #3: 1 Result Comment: Fast ing Glucose result greater than or equal to 126 mg/dLsuggests DIABETES MELLITUS per A.D.A. criteria. Performed By: #### L 503.6620, L300.3900, L100.0100, L300.4310, L500.2500, L501.4020, L500.3400, L503.6005 ####[facility] [address] [place], [address] Potassium [Moles/Vol] 3.3 mmol/L Low 3.5-5.1 [facility] Comment on above: Order Comment: 'TROP ' Serial specimen #1, #2 or #3: 1 Performed By: #### L 503.6620, L300.3900, L100.0100, L300.4310, L500.2500, L501.4020, L500.3400, L503.6005 ####[facility] [address] [place], [address] Sodium [Moles/Vol] 139 mmol/L Normal 136-145 [facility] Comment on above: Order Comment: 'TROP ' Serial specimen #1, #2 or #3: 1 Performed By: #### L 503.6620, L300.3900, L100.0100, L300.4310, L500.2500, L501.4020, L500.3400, L503.6005 ####[facility] [address] [place], [address] Urea nitrogen [Mass/Vol] 23 mg/dL High 7-18 [facility] Comment on above: Order Comment: 'TROP ' Serial specimen #1, #2 or #3: 1 Performed By: #### L 503.6620, L300.3900, L100.0100, L300.4310, L500.2500, L501.4020, L500.3400, L503.6005 ####[facility] [address] [place], [address] CBC W/Diff, Automatedon 08-3 Absolute Lymph 1.39 X10 3/uL Normal 0.83-4.51 [facility] Comment on above: Performed By: #### L 503.6620, L300.3900, L100.0100, L300.4310, L500.2500, L501.4020, L500.3400, L503.6005 ####[facility] [address] [place], [address] Absolute Neut 3.2 X10 3/uL Normal 2.0-7.7 [facility] Comment on above: Performed By: #### L 503.6620, L300.3900, L100.0100, L300.4310, L500.2500, L501.4020, L500.3400, L503.6005 ####[facility] [address] [place], [address] Basophils/100 WBC (Bld) 0.6 % Normal 0-1 [facility] Comment on above: Performed By: #### L 503.6620, L300.3900, L100.0100, L300.4310, L500.2500, L501.4020, L500.3400, L503.6005 ####[facility] [address] [place], [address] Eosinophils/100 WBC (Bld) 3.4 % Normal 0-5 [facility] Comment on above: Performed By: #### L 503.6620, L300.3900, L100.0100, L300.4310, L500.2500, L501.4020, L500.3400, L503.6005 ####[facility] [address] [place], [address] Erythrocyte distribution width (RBC) [Ratio] 16.1 % High 11.6-14.6 [facility] Comment on above: Performed By: #### L 503.6620, L300.3900, L100.0100, L300.4310, L500.2500, L501.4020, L500.3400, L503.6005 ####[facility] [address] [place], [address] Hematocrit (Bld) [Volume fraction] 34.8 % Low 37-47 [facility] Comment on above: Performed By: #### L 503.6620, L300.3900, L100.0100, L300.4310, L500.2500, L501.4020, L500.3400, L503.6005 ####[facility] [address] [place], [address] Hemoglobin (Bld) [Mass/Vol] 11.1 g/dL Low 12.0-15.0 [facility] Comment on above: Performed By: #### L 503.6620, L300.3900, L100.0100, L300.4310, L500.2500, L501.4020, L500.3400, L503.6005 ####[facility] [address] [facility] [place], [address] IG% 0.400 Normal 0.0-0.9 [facility] Comment on above: Result Comment: IG% - Immature Granulocytes (promyelocytes, myelocytes andmetamyelocytes) > 1% indicates that a LEFT SHIFT is Present. Performed By: #### L 503.6620, L300.3900, L100.0100, L300.4310, L500.2500, L501.4020, L500.3400, L503.6005 ####[facility] [address] [place], [address] Lymphocytes/100 WBC (Bld) 26.0 % Normal 19-41 [facility] Comment on above: Performed By: #### L 503.6620, L300.3900, L100.0100, L300.4310, L500.2500, L501.4020, L500.3400, L503.6005 ####[facility] [address] [place], [address] MCH (RBC) [Entitic mass] 31.4 pg Normal 27.0-32.0 [facility] Comment on above: Performed By: #### L 503.6620, L300.3900, L100.0100, L300.4310, L500.2500, L501.4020, L500.3400, L503.6005 ####[facility] [address] [place], [address] MCHC (RBC) [Mass/Vol] 31.9 g/dL Low 32-36 [facility] Comment on above: Performed By: #### L 503.6620, L300.3900, L100.0100, L300.4310, L500.2500, L501.4020, L500.3400, L503.6005 ####[facility] [address] [place], [address] MCV (RBC) [Entitic vol] 98.3 fL Normal 81-99 [facility] Comment on above: Performed By: #### L 503.6620, L300.3900, L100.0100, L300.4310, L500.2500, L501.4020, L500.3400, L503.6005 ####[facility] [address] [place], [address] Monocytes/100 WBC (Bld) 10.1 % High 0-10 [facility] Comment on above: Performed By: #### L 503.6620, L300.3900, L100.0100, L300.4310, L500.2500, L501.4020, L500.3400, L503.6005 ####[facility] [address] [place], [address] Neutrophils/100 WBC (Bld) 59.5 % Normal 47-70 [facility] Comment on above: Performed By: #### L 503.6620, L300.3900, L100.0100, L300.4310, L500.2500, L501.4020, L500.3400, L503.6005 ####[facility] [address] [place], [address] Nucleated RBC (Bld) [#/Vol] 0 10*3/uL Normal 0-5 [facility] Comment on above: Performed By: #### L 503.6620, L300.3900, L100.0100, L300.4310, L500.2500, L501.4020, L500.3400, L503.6005 ####[facility] [address] [place], [address] Platelet mean volume (Bld) [Entitic vol] 11.1 fL Normal 6.2-12.0 [facility] Comment on above: Performed By: #### L 503.6620, L300.3900, L100.0100, L300.4310, L500.2500, L501.4020, L500.3400, L503.6005 ####[facility] [address] [place], [address] Platelets (Bld) [#/Vol] 243 10*3/uL Normal 150-450 [facility] Comment on above: Performed By: #### L 503.6620, L300.3900, L100.0100, L300.4310, L500.2500, L501.4020, L500.3400, L503.6005 ####[facility] [address] [place], [address] RBC (Bld) [#/Vol] 3.54 10*6/uL Low 4.2-5.4 [facility] Comment on above: Performed By: #### L 503.6620, L300.3900, L100.0100, L300.4310, L500.2500, L501.4020, L500.3400, L503.6005 ####[facility] [address] [place], [address] RDW SD 58.6 fl High 35.1-43.9 [facility] Comment on above: Performed By: #### L 503.6620, L300.3900, L100.0100, L300.4310, L500.2500, L501.4020, L500.3400, L503.6005 ####[facility] [address] [place], [address] WBC (Bld) [#/Vol] 5.3 10*3/uL Normal 4.4-11.0 [facility] Comment on above: Performed By: #### L 503.6620, L300.3900, L100.0100, L300.4310, L500.2500, L501.4020, L500.3400, L503.6005 ####[facility] [address] [place], [place], [id number] CNOVon 12-31-2023 CNOV Normal [facility] COVID 19 AG RAPID (XOCHILT Vaughn)on 12-31-2023 SARS-CoV-2 (COVID-19) RNA MARCOS+probe Ql (Unsp spec) Normal [facility] Comment on above: Performed By: #### M 100.505 ####[facility] [address] [place], [place], [id number] CTA Chest W/WO Contraston CTA Chest W/WO Contrast Normal [facility] Chest 1 View (Portable)on Chest 1 View (Portable) Normal [facility] Echo Completeon 12-31-2023 Echo Complete Normal [facility] Emergency Department Summary on 12-31-2023 Emergency Department Summary Normal [facility] H AND P Exam - Hospitaliston 12-31-2023 H&P Exam - Hospitalist Normal [facility] L501.4020on 12-31-2023 TROPONIN-I HS 11 pg/mL Normal 3.0-54.0 [facility] Comment on above: Order Comment: 'TROP ' Serial specimen #1, #2 or #3: 1 Result Comment: Joe heath Note: New Test Units and Gender Specific Reference Ranges. For more information see Policy Stat Procedure [place] High Sensitivity Troponin (TNIH) and attachments. Performed By: #### L 503.6620, L300.3900, L100.0100, L300.4310, L500.2500, L501.4020, L500.3400, L503.6005 ####[facility] [address] [place], [address] Lactic Acidon 12-31-2023 Lactate [Moles/Vol] 1.1 mmol/L Normal 0.4-1.9 [facility] Comment on above: Order Comment: Y Performed By: #### L 503.6620, L300.3900, L100.0100, L300.4310, L500.2500, L501.4020, L500.3400, L503.6005 ####[facility] [address] [place], [place], [id number] Liver Profileon 12-31-2023 Albumin [Mass/Vol] 3.4 g/dL Normal 3.2-5.0 [facility] Comment on above: Order Comment: 'TROP ' Serial specimen #1, #2 or #3: 1 Performed By: #### L 503.6620, L300.3900, L100.0100, L300.4310, L500.2500, L501.4020, L500.3400, L503.6005 ####[facility] [address] [place], [address] ALK P 81 U/L Normal 45-117 [facility] Comment on above: Order Comment: 'TROP ' Serial specimen #1, #2 or #3: 1 Performed By: #### L 503.6620, L300.3900, L100.0100, L300.4310, L500.2500, L501.4020, L500.3400, L503.6005 ####[facility] [address] [place], [address] ALT [Catalytic activity/Vol] 22 U/L Normal 13-56 [facility] Comment on above: Order Comment: 'TROP ' Serial specimen #1, #2 or #3: 1 Performed By: #### L 503.6620, L300.3900, L100.0100, L300.4310, L500.2500, L501.4020, L500.3400, L503.6005 ####[facility] [address] [place], [address] AST [Catalytic activity/Vol] 17 U/L Normal 15-37 [facility] Comment on above: Order Comment: 'TROP ' Serial specimen #1, #2 or #3: 1 Performed By: #### L 503.6620, L300.3900, L100.0100, L300.4310, L500.2500, L501.4020, L500.3400, L503.6005 ####[facility] [address] [place], [address] Bilirubin [Mass/Vol] 0.80 mg/dL Normal 0.20-1.00 [facility] Comment on above: Order Comment: 'TROP ' Serial specimen #1, #2 or #3: 1 Result Comment: For patients on eltrombopag therapy, use of Dimension [place] TBIL is not recommended. Performed By: #### L 503.6620, L300.3900, L100.0100, L300.4310, L500.2500, L501.4020, L500.3400, L503.6005 ####[facility] [address] [place], [address] Bilirubin.direct [Mass/Vol] 0.22 mg/dL Normal 0.00-0.30 [facility] Comment on above: Order Comment: 'TROP ' Serial specimen #1, #2 or #3: 1 Performed By: #### L 503.6620, L300.3900, L100.0100, L300.4310, L500.2500, L501.4020, L500.3400, L503.6005 ####[facility] [address] [place], [address] Globulin (S) [Mass/Vol] 4.1 g/dL Normal 2.2-4.2 [facility] Comment on above: Order Comment: 'TROP ' Serial specimen #1, #2 or #3: 1 Performed By: #### L 503.6620, L300.3900, L100.0100, L300.4310, L500.2500, L501.4020, L500.3400, L503.6005 ####[facility] [address] [place], [address] T PROT 7.5 g/dL Normal 6.4-8.2 [facility] Comment on above: Order Comment: 'TROP ' Serial specimen #1, #2 or #3: 1 Performed By: #### L 503.6620, L300.3900, L100.0100, L300.4310, L500.2500, L501.4020, L500.3400, L503.6005 ####[facility] [address] [place], [address] Partial Thromboplast Timeon 12-31-2023 aPTT Coag (Bld) [Time] 50.5 s High 24.1-36.2 [facility] Comment on above: Performed By: #### L 503.6620, L300.3900, L100.0100, L300.4310, L500.2500, L501.4020, L500.3400, L503.6005 ####[facility] [address] [place], [address] Prothrombin Time w/INRon INR Coag (PPP) [Relative time] 2.1 {INR} Normal [facility] Comment on above: Performed By: #### L 503.6620, L300.3900, L100.0100, L300.4310, L500.2500, L501.4020, L500.3400, L503.6005 ####[facility] [address] [place], [address] PT Coag (PPP) [Time] 23.1 s High 11.7-14.9 [facility] Comment on above: Performed By: #### L 503.6620, L300.3900, L100.0100, L300.4310, L500.2500, L501.4020, L500.3400, L503.6005 ####[facility] [address] [place], [address] RESPIRATORY PANEL MOLECULARo n 12-31-2023 RP PANEL Normal [facility] Comment on above: Performed By: #### M 100.638 ####[facility] [address] [place], [address] Urinalysis, Completeon 12-30 EPI,SQUAMOUS 0-5 SEEN Normal 5-10 [facility] Comment on above: Order Comment: CLEAN CATCH Performed By: #### L 400.0001 ####[facility] [address] [place], [address] WBC 0-5 SEEN Normal 0-5 [facility] Comment on above: Order Comment: CLEAN CATCH Performed By: #### L 400.0001 ####[facility] [address] [place], [address] BACTERIA 0 SEEN Normal None Seen [facility] Comment on above: Order Comment: CLEAN CATCH Performed By: #### L 400.0001 ####[facility] [address] [place], [address] Mucus Ql (Urine sed) 0 SEEN Normal [facility] Comment on above: Order Comment: CLEAN CATCH Performed By: #### L 400.0001 ####[facility] [address] [place], [address] RBC 0 SEEN Normal 0-5 [facility] Comment on above: Order Comment: CLEAN CATCH Performed By: #### L 400.0001 ####[facility] [address] [place], [address] ALBUMIN/CREATININE RATIO, UR INEon 12-27-2023 Albumin DL <= 20 mg/L (U) [Mass/Vol] 33.6 mg/L Normal [facility] Comment on above: Order Comment: Speci men Type: URINE SPECIMENOrdering Facility: [facility] Address: [address] [place] [address] Performed By: #### U ACR ####[facility] LABCLIA [id number] [place] [address] [place] Albumin/Creatinine (U) [Mass ratio] 19 mg/g Normal <30 [facility] Comment on above: Order Comment: Speci men Type: URINE SPECIMENOrdering Facility: [facility] Address: [address] [place] [address] Result Comment: Adul t Male and Female Nephrotic Criteria:<30 mg/g is considered normal to mildly -386 mg/g is considered moderately increased>300 mg/g is considered severely increasedKDIGO. (2013). KDIGO 2012 Clinical Practice Guideline for the Evaluation and Management of Chronic Kidney Disease. Official Journal of the International Society of Nephrology, 3(1), 1-150. Performed By: #### U ACR ####[facility] LABCLIA [id number] [place] [address] [place] Creatinine (U) [Mass/Vol] 177.0 mg/dL Normal 20.0-300.0 [facility] Comment on above: Order Comment: Speci men Type: URINE SPECIMENOrdering Facility: [facility] Address: [address] [place] [address] Performed By: #### U ACR ####[facility] LABCLIA [id number] [place] [address] [place] CBC panel Auto (Bld)on 12-26 Erythrocyte distribution width (RBC) [Ratio] 15.9 % High 11.5-15.0 [facility] Comment on above: Order Comment: Speci men Type: BLOOD SPECIMENOrdering Facility: [facility] Address: [address] [place] [address] Performed By: #### 5 8410-2 ####[facility] LABIA [id number] [place] [address] [place] Hematocrit (Bld) [Volume fraction] 35.7 % Low 36.0-46.0 [facility] Comment on above: Order Comment: Speci men Type: BLOOD SPECIMENOrdering Facility: [facility] Address: [address] [place] [address] Performed By: #### 5 8410-2 ####[facility] LABIA [id number] [place] [address] [place] Hemoglobin (Bld) [Mass/Vol] 11.4 g/dL Low 11.5-15.5 [facility] Comment on above: Order Comment: Speci men Type: BLOOD SPECIMENOrdering Facility: [facility] Address: [address] [place] [address] Performed By: #### 5 8410-2 ####[facility] LABCLIA [id number] [place] [address] [place] MCH (RBC) [Entitic mass] 32.0 pg Normal 26.0-34.0 [facility] Comment on above: Order Comment: Speci men Type: BLOOD SPECIMENOrdering Facility: [facility] Address: [address] [place] [address] Performed By: #### 5 8410-2 ####[facility] LABCLIA [id number] [place] [address] [place] MCHC (RBC) [Mass/Vol] 31.9 g/dL Normal 30.5-36.0 [facility] Comment on above: Order Comment: Speci men Type: BLOOD SPECIMENOrdering Facility: [facility] Address: [address] [place] [address] Performed By: #### 5 8410-2 ####[facility] LABIA [id number] [place] [address] [place] MCV (RBC) [Entitic vol] 100.3 fL High 80.0-100.0 [facility] Comment on above: Order Comment: Speci men Type: BLOOD SPECIMENOrdering Facility: [facility] Address: [address] [place] [address] Performed By: #### 5 8410-2 ####[facility] LABCLIA [id number] [place] [address] [place] Nucleated RBC (Bld) [#/Vol] 10*3/uL Normal <0.01 [facility] Comment on above: Order Comment: Speci men Type: BLOOD SPECIMENOrdering Facility: [facility] Address: [address] [place] [address] Performed By: #### 5 8410-2 ####[facility] LABIA [id number] [place] [address] [place] Platelet mean volume (Bld) [Entitic vol] 12.7 fL Normal 9.0-12.7 [facility] Comment on above: Order Comment: Speci men Type: BLOOD SPECIMENOrdering Facility: [facility] Address: [address] [place] [address] Performed By: #### 5 8410-2 ####[facility] LABCLIA [id number] [place] [address] [place] Platelets (Bld) [#/Vol] 216 10*3/uL Normal 150-400 [facility] Comment on above: Order Comment: Speci men Type: BLOOD SPECIMENOrdering Facility: [facility] Address: [address] [place] [address] Performed By: #### 5 8410-2 ####[facility] LABCLIA [id number] [place] [address] [place] RBC (Bld) [#/Vol] 3.56 10*6/uL Low 3.90-5.20 [facility] Comment on above: Order Comment: Speci men Type: BLOOD SPECIMENOrdering Facility: [facility] Address: [address] [place] [address] Performed By: #### 5 8410-2 ####[facility] LABCLIA [id number] [place] [address] [place] WBC (Bld) [#/Vol] 7.13 10*3/uL Normal 3.70-11.00 [facility] Comment on above: Order Comment: Speci men Type: BLOOD SPECIMENOrdering Facility: [facility] Address: [address] [place] [address] Performed By: #### 5 8410-2 ####[facility] LABCLIA [id number] [place] [address] [place] CNPNon 12-27-2023 CNPN Normal [facility] Comprehensive metabolic 2000 panelon 12-27-2023 Albumin [Mass/Vol] 4.0 g/dL Normal 3.9-4.9 [facility] Comment on above: Order Comment: Speci men Type: BLOOD SPECIMENOrdering Facility: [facility] Address: [address] [place] [address] Performed By: #### 2 4323-8, 65928-4 ####[facility] LABCLIA [id number] [place] [address] [place] ALP [Catalytic activity/Vol] 64 U/L Normal 34-123 [facility] Comment on above: Order Comment: Speci men Type: BLOOD SPECIMENOrdering Facility: [facility] Address: [address] [id number] Performed By: #### 2 4323-8, 52849-8 ####[facility] LABCLIA [id number] [place] [id number] [place] ALT [Catalytic activity/Vol] 22 U/L Normal 7-38 [facility] Comment on above: Order Comment: Speci men Type: BLOOD SPECIMENOrdering Facility: [facility] Address: [address] [id number] Performed By: #### 2 4323-8, 75066-5 ####[facility] LABCLIA [id number] [place] [address] [place] Anion gap [Moles/Vol] 12 mmol/L Normal 8-15 [facility] Comment on above: Order Comment: Speci men Type: BLOOD SPECIMENOrdering Facility: [facility] Address: [address] [id number] Performed By: #### 2 4323-8, 67744-4 ####[facility] LABCLIA [id number] [place] [address] [place] AST [Catalytic activity/Vol] 23 U/L Normal 13-35 [facility] Comment on above: Order Comment: Speci men Type: BLOOD SPECIMENOrdering Facility: [facility] Address: [address] [id number] Performed By: #### 2 4323-8, 35571-4 ####[facility] LABCLIA [id number] [place] [id number] [place] Bilirubin [Mass/Vol] 0.9 mg/dL Normal 0.2-1.3 [facility] Comment on above: Order Comment: Speci men Type: BLOOD SPECIMENOrdering Facility: [facility] Address: [address] [place], [place] [id number] Performed By: #### 2 4323-8, 03903-7 ####[facility] LABCLIA [id number] [address] [address] [place] Calcium [Mass/Vol] 9.4 mg/dL Normal 8.5-10.2 [facility] Comment on above: Order Comment: Speci men Type: BLOOD SPECIMENOrdering Facility: [facility] Address: [address] [place] [address] Performed By: #### 2 432-8, 07160-8 ####[facility] LABCLIA [id number] [place] [id number] [place] Chloride [Moles/Vol] 101 mmol/L Normal 98-107 [facility] Comment on above: Order Comment: Speci men Type: BLOOD SPECIMENOrdering Facility: [facility] Address: [address] [place] [address] Performed By: #### 2 4328, ####[facility] LABCLIA [id number] [place] [address] [place] CO2 [Moles/Vol] 25 mmol/L Normal 22-30 [facility] Comment on above: Order Comment: Speci men Type: BLOOD SPECIMENOrdering Facility: [facility] Address: [address] [place] [address] Performed By: #### 2 4323-8, ####[facility] LABCLIA [id number] [place] [address] [place] Creatinine [Mass/Vol] 0.71 mg/dL Normal 0.58-0.96 [facility] Comment on above: Order Comment: Speci men Type: BLOOD SPECIMENOrdering Facility: [facility] Address: [address] [place] [address] Performed By: #### 2 4323-8, 44520-1 ####[facility] LABCLIA [id number] [place] [address] [place] Creatinine and Glomerular filtration rate.predicted panel (S/P/Bld) 84 mL/min/1.73m??? Normal >=60 [facility] Comment on above: Order Comment: Miguel cunningham Type: BLOOD SPECIMENOrdering Facility: [facility] Address: [address] [place] [address] Result Comment: Kimberley mated Glomerular Filtration Rate [...] actual GFR. Performed By: #### 2 4323-8, 13650-1 ####[facility] LABCLIA [id number] [place] [address] [place] Glucose [Mass/Vol] 159 mg/dL High 74-99 [facility] Comment on above: Order Comment: Miguel cunningham Type: BLOOD SPECIMENOrdering Facility: [facility] Address: [address] [place] [address] Result Comment: The [place] Diabetes Association (ADA) provides guidance for cutoff [...] Standards of Medical Care in Diabetes 2016, [place] Diabetes Association. Diabetes Care. 2016.39(Suppl 1). Performed By: #### 2 4323-8, 47208-0 ####[facility] LABCLIA [id number] [place] [address] [place] Potassium [Moles/Vol] 3.9 mmol/L Normal 3.7-5.1 [facility] Comment on above: Order Comment: Speci men Type: BLOOD SPECIMENOrdering Facility: [facility] Address: [address] [place] [address] Performed By: #### 2 4323-8, 52284-9 ####[facility] LABCLIA [id number] [place] [address] [place] Protein [Mass/Vol] 7.1 g/dL Normal 6.3-8.0 [facility] Comment on above: Order Comment: Speci men Type: BLOOD SPECIMENOrdering Facility: [facility] Address: [address] [place] [address] Performed By: #### 2 4323-8, 86089-8 ####[facility] LABCLIA [id number] [place] [address] [place] Sodium [Moles/Vol] 138 mmol/L Normal 136-144 [facility] Comment on above: Order Comment: Speci men Type: BLOOD SPECIMENOrdering Facility: [facility] Address: [address] [place] [address] Performed By: #### 2 4323-8, 48950-2 ####[facility] LABCLIA [id number] [place] [address] [place] Urea nitrogen [Mass/Vol] 16 mg/dL Normal 7-21 [facility] Comment on above: Order Comment: Speci men Type: BLOOD SPECIMENOrdering Facility: [facility] Address: [address] [place] [address] Performed By: #### 2 4323-8, 06063-7 ####[facility] LABCLIA [id number] [place] [address] [place] HbA1c (Bld)on 12-27-2023 Average glucose Estimated from glycated hemoglobin (Bld) [Mass/Vol] 151 mg/dL Normal [facility] Comment on above: Order Comment: Speci men Type: BLOOD SPECIMENOrdering Facility: [facility] Address: [address] [place] [address] Result Comment: eAG: (Estimated average glucose) is a calculated value from HgbA1c and is sales representative of the average blood glucose level in the last 2-3 month period. Performed By: #### 5 5454-3 ####[facility] LABCLIA [id number] [place] [address] [place] HbA1c (Bld) [Mass fraction] 6.9 % High 4.3-5.6 [facility] Comment on above: Order Comment: Speci men Type: BLOOD SPECIMENOrdering Facility: [facility] Address: [address] [place] [address] Result Comment: Amer ican Diabetes Association guidelines indicate that patients with HgbA1c in the range 5.7-6.4% are at increased risk for development of diabetes, and intervention by lifestyle modification may be beneficial. HgbA1c greater or equal to 6.5% is considered diagnostic of diabetes. Performed By: #### 5 5454-3 ####[facility] LABIA [id number] [place] [address] [place] Lipid 1996 panelon 4 Cholesterol [Mass/Vol] 118 mg/dL Normal <200 [facility] Comment on above: Order Comment: Speci men Type: BLOOD SPECIMENOrdering Facility: [facility] Address: [address] [place] [address] Result Comment: <200 mg/dL, Desirable 200-239 mg/dL, Borderline high>239 mg/dL, High Performed By: #### 2 4323-8, 59079-1 ####[facility] LABIA [id number] [place] [address] [place] Cholesterol in HDL [Mass/Vol] 22 mg/dL Low >39 [facility] Comment on above: Order Comment: Speci men Type: BLOOD SPECIMENOrdering Facility: [facility] Address: [address] [place] [address] Result Comment: 40-5 9 mg/dL, Acceptable>59 mg/dL, High: Negative risk factor for coronary heart disease<40 mg/dL, Low: Positive risk factor for coronary heart disease Performed By: #### 2 4323-8, 74347-0 ####[facility] LABCLIA [id number] [place] [address] [place] Cholesterol in LDL [Mass/Vol] 33 mg/dL Normal <100 [facility] Comment on above: Order Comment: Speci men Type: BLOOD SPECIMENOrdering Facility: [facility] Address: [address] [place] [address] Result Comment: <100 mg/dL, Optimal 100-129 mg/dL, Near optimal/above optimal 130-159 mg/dL, Borderline high 160-189 mg/dL, High>189 mg/dL, Very highSecondary prevention optimal LDL Cholesterol levels are recommended to be < 70 mg/dL Performed By: #### 2 4323-8, 15815-1 ####[facility] LABCLIA [id number] [place] [address] [place] Cholesterol in LDL/Cholesterol in HDL [Mass ratio] 1.50 {ratio} Normal <2.54 [facility] Comment on above: Order Comment: Speci men Type: BLOOD SPECIMENOrdering Facility: [facility] Address: [address] [place] [address] Result Comment: Refe rence:1. National Cholesterol Education Program ATP III Guideline At-A-Glance Quick Desk Reference: National Heart, Lung, and Blood Commerce. National Institutes of Health. 2001: NIH Publication No. 01-3305.2. An International Atherosclerosis Society position paper: global recommendations for the management of dyslipidemia: executive summary, Atherosclerosis. 2014: 232(2):410-413. Performed By: #### 2 4323-8, 40079-5 ####[facility] LABCLIA [id number] [place] [address] [place] Cholesterol in VLDL [Mass/Vol] 63 mg/dL High <30 [facility] Comment on above: Order Comment: Speci men Type: BLOOD SPECIMENOrdering Facility: [facility] Address: [address] [place] [address] Performed By: #### 2 4323-8, 30761-1 ####[facility] LABCLIA [id number] [place] [address] [place] Cholesterol non HDL [Mass/Vol] 96 mg/dL Normal <130 [facility] Comment on above: Order Comment: Speci men Type: BLOOD SPECIMENOrdering Facility: [facility] Address: [address] [place] [address] Result Comment: <130 mg/dL, Optimal 130-159 mg/dL, Near optimal/above optimal 160-189 mg/dL, Borderline high 190-219 mg/dL, High>219 mg/dL, Very highSecondary prevention optimal non HDL Cholesterol levels are recommended to be <100 mg/dL Performed By: #### 2 4323-8, 51282-1 ####[facility] LABCLIA [id number] [place] [address] [place] Cholesterol.total/Roz sterol in HDL [Mass ratio] 5.36 {ratio} High <5.10 [facility] Comment on above: Order Comment: Speci men Type: BLOOD SPECIMENOrdering Facility: [facility] Address: [address] [place] [address] Performed By: #### 2 4323-8, 99135-4 ####[facility] LABCLIA [id number] [place] [address] [place] FASTING TIME 12 hrs Normal [facility] Comment on above: Order Comment: Speci men Type: BLOOD SPECIMENOrdering Facility: [facility] Address: [address] [place] [address] Performed By: #### 2 4323-8, 81611-0 ####[facility] LABCLIA [id number] [place] [address] [place] Triglyceride [Mass/Vol] 315 mg/dL High <150 [facility] Comment on above: Order Comment: Speci men Type: BLOOD SPECIMENOrdering Facility: [facility] Address: [address] [place] [address] Result Comment: <150 mg/dL, Normal 150-199 mg/dL, Borderline high 200-499 mg/dL, High>499 mg/dL, Very high Performed By: #### 2 4323-8, 37164-1 ####[facility] LABCLIA [id number] [address] [place] [address] [place] CNPNon 12-12-2023 CNPN Normal [facility] XR CHEST 2V FRONTAL/LATon XR CHEST 2V FRONTAL/LAT Normal [facility] XR Chest PA and Lateralon IMPRESSION: Left upper lobe nodule, seen on patient's CT chest dated 10/24/2023. A few hazy opacities overlying the left mid to lower lung zones, raising concern for infection/pneumonia. Please clinically correlate. Mild cardiomegaly. Clinical Product Specialist: PSCDi Transcribe Date/Time: Dec 12 2023 10:20A Dictated by : JOSÉ MIGUEL MEEKS MD This examination was interpreted and the report reviewed and electronically signed by: JOSÉ MIGUEL MEEKS MD on Dec 12 2023 10:22AM [facility] DIVISION OF RADIOLOGY * * *Final Report* [...] mild degenerative changes. DIVISION OF RADIOLOGY Provider, [facility] [employer] - 12/12/2023 * * *Final Report* * [...] for infection/pneumonia. Please clinically correlate. Mild cardiomegaly. Clinical Product Specialist: JEN Transcribe Date/Time: Dec 12 2023 10:20A Dictated by : JOSÉ MIGUEL MEEKS MD This examination was interpreted and the report reviewed and electronically signed by: JOSÉ MIGUEL MEEKS MD on Dec 12 2023 10:22AM [facility] Radiology Study observation (narrative) [facility] X[facility] Chest PA and LateralOrder ed By: [facility] Provider on 12-12-2023 [facility] CNOVon 12-11-2023 CNOV Normal [facility] COVID AND INFLUENZA A/B AND RSV NAAT, ROUTINEon 12-11-2023 SARS-CoV-2 (COVID-19) RNA MARCOS+probe Ql (Unsp spec) Normal [facility] Comment on above: Performed By: #### C VFLRS ####[facility] LABCLIA [id number] [address] [place] HBV core Ab Ser Qlon 024 HBV core Ab Ql (S) Negative Normal Negative [facility] Comment on above: Order Comment: Speci men Type: BLOOD SPECIMENOrdering Facility: [facility] Address: [address] [place] [address] Result Comment: No e vidence of current or past infection with Hepatitis B virus. Should recent infection be suspected, repeat testing may be considered 3-4 weeks after this draw. Performed By: #### 5 195-3, 47922-9, 59764-7 ####[facility] LABCLIA [id number] [address] HBV surface Ab Ql (S)on HBV surface Ab Qn (S) <8.00 Normal [facility] Comment on above: Order Comment: Speci men Type: BLOOD SPECIMENOrdering Facility: [facility] Address: [address] [place] [address] Result Comment: <8 m IU/mL: No serological evidence of immunity to Hepatitis B Virus.>/= 8 to <12 mIU/mL: No serological evidence of immunity to Hepatitis B Virus.>/= 12 mIU/mL: Consistent with serological evidence of immunity to Hepatitis B Virus. Performed By: #### 5 195-3, 87203-3, 12922-6 ####[facility] LABCLIA [id number] [place] [id number] [place] [facility] HBV surface Ab Ser Qlon HBV surface Ab Ql (S) Negative Normal [facility] Comment on above: Order Comment: Speci men Type: BLOOD SPECIMENOrdering Facility: [facility] Address: [address] [place] [address] Result Comment: No s erological evidence of immunity to Hepatitis B Virus. Performed By: #### 5 195-3, 57061-7, 46189-3 ####[facility] LABCLIA [id number] [place] [address] [place] HBV surface Ag Ser Qlon 08-0 HBV surface Ag Ql (S) Negative Normal Negative [facility] Comment on above: Order Comment: Speci men Type: BLOOD SPECIMENOrdering Facility: [facility] Address: [address] [place] [address] Performed By: #### 5 195-3, 51343-6, 58723-4 ####[facility] LABCLIA [id number] [place] [address] [place] HCV Ab Ser Qlon 12-08-2023 HCV Ab Ql (S) Negative Normal Negative [facility] Comment on above: Order Comment: Speci men Type: BLOOD SPECIMENOrdering Facility: [facility] Address: [address] [place] [address] Result Comment: The result suggests no evidence of active infection with Hepatitis C virus. Should recent infection be suspected, repeat testing may be considered 4-6 weeks after this draw. Performed By: #### 1 6128-1 ####[facility] LABIA [id number] [place] [address] [place] Hepatic function 2000 panelo n 12-08-2023 Albumin [Mass/Vol] 4.1 g/dL Normal 3.9-4.9 [facility] Comment on above: Order Comment: Speci men Type: BLOOD SPECIMENOrdering Facility: [facility] Address: [address] [place] [address] Performed By: #### 2 4325-3 ####[facility] LABIA [id number] [place] [address] [place] ALP [Catalytic activity/Vol] 55 U/L Normal 34-123 [facility] Comment on above: Order Comment: Speci men Type: BLOOD SPECIMENOrdering Facility: [facility] Address: [address] [place] [address] Performed By: #### 2 4325-3 ####[facility] LABIA [id number] [place] [id number] [place] ALT [Catalytic activity/Vol] 20 U/L Normal 7-38 [facility] Comment on above: Order Comment: Speci men Type: BLOOD SPECIMENOrdering Facility: [facility] Address: [address] [place] [address] Performed By: #### 2 4325-3 ####[facility] LABCLIA [id number] [place] [address] [place] AST [Catalytic activity/Vol] 21 U/L Normal 13-35 [facility] Comment on above: Order Comment: Speci men Type: BLOOD SPECIMENOrdering Facility: [facility] Address: [address] [place] [address] Performed By: #### 2 4325-3 ####[facility] LABCLIA [id number] [place] [address] [place] Bilirubin [Mass/Vol] 0.4 mg/dL Normal 0.2-1.3 [facility] Comment on above: Order Comment: Speci men Type: BLOOD SPECIMENOrdering Facility: [facility] Address: [address] [place] [address] Performed By: #### 2 4325-3 ####[facility] LABCLIA [id number] [place] [address] [place] Bilirubin.conjugated [Mass/Vol] mg/dL Normal <0.2 [facility] Comment on above: Order Comment: Speci men Type: BLOOD SPECIMENOrdering Facility: [facility] Address: [address] [place] [address] Performed By: #### 2 4325-3 ####[facility] LABCLIA [id number] [place] [address] [place] Protein [Mass/Vol] 6.7 g/dL Normal 6.3-8.0 [facility] Comment on above: Order Comment: Speci men Type: BLOOD SPECIMENOrdering Facility: [facility] Address: [address] [place] [id number] Performed By: #### 2 4325-3 ####[facility] LABCLIA [id number] [facility] [place] [address] [place] US ABD RIGHT UPPER QUADRANTo n 11-30-2023 US ABD RIGHT UPPER QUADRANT Normal [facility] US Abdomen RUQon 11-30-2023 IMPRESSION: Cholelithiasis. Clinical Product Specialist: JEN Transcribe Date/Time: Nov 30 2023 9:57A Dictated by : JONNIE VILLEGAS MD This examination was interpreted and the report reviewed and electronically signed by: JONNIE VILLEGAS MD on Nov 30 2023 10:05AM [facility] DIVISION OF RADIOLOGY * * *Final Report* [...] hydronephrosis. Ascites: None. DIVISION OF RADIOLOGY Provider, [facility] - 11/30/2023 * * *Final Report* * [...] No hydronephrosis. Ascites: None. IMPRESSION IMPRESSION: Cholelithiasis. Clinical Product Specialist: PSCDi Transcribe Date/Time: Nov 30 2023 9:57A Dictated by : JONNIE VILLEGAS MD This examination was interpreted and the report reviewed and electronically signed by: JONNIE VILLEGAS MD on Nov 30 2023 10:05AM EST [facility] Radiology Study observation (narrative) [facility] US Abdomen RUQOrdered By: Cc f Provider on 11-30-2023 [facility] CNOVon 11-18-2023 CNOV Normal [facility] CNCOon 11-14-2023 CNCO Letter Text Normal [facility] CNOVon 11-14-2023 CNOV Normal [facility] CNOV Normal [facility] STRESS ECHO TREADMILLon 10-30 Stress ECG Report: [facility] Date of service: 11/14/2023 1:48:28 PM SALES ADMINISTRATOR Ordering physician: ANASTASIIA COLÓN senior talent acquisition specialist: Santana Hernandez Interpreting physician: Eugene Christianson [...] 170/94 mmHg. The double product achieved was [address]. Medications: Last Used METOPROLOL 1 Days AMLODIPINE [...] (HRR): 24 bpm Rate Pressure Product (RPP): 78424 Travis Treadmill Score: 10.0 Stress Exercise Observations: [...] equation for determining estimated MET values for [facility] stress tests changed. Comparison of test results before and after that date may show a change in estimated MET values for peak/max exercise despite a test duration that is similar in length. The validity of the new FRIEND equation for exercise METS is endorsed by the [place] Heart Association. Bobby P, Jennifer LA, Madison R, Rojas J, Chey J. New Generalized Equation for Predicting Maximal Oxygen Uptake (from the Fitness Registry and the Importance of Exercise National Database). The [place] Journal of Cardiology. 2017;120(4):688-692). Final -------- Echocardiography Report: [facility] Date of service: 11/14/2023 1:48:28 PM SALES ADMINISTRATOR Ordering physician: ANASTASIIA COLÓN Indication: Chest Pain Technologist: Prerna Krause [facility] Interpreting physician: Eugene Christianson MD PATIENT: Name: [...] content not included)... [facility] STRESS ECHO TREADMILL Normal [facility] Basic metabolic 2000 panelon 11-10-2023 Anion gap [Moles/Vol] 12 mmol/L Normal 8-15 [facility] Comment on above: Order Comment: Speci men Type: BLOOD SPECIMENOrdering Facility: [facility] Address: [address] [place] [address] Performed By: #### 2 4321-2 ####[facility] LABCLIA [id number] [place] [address] [place] Calcium [Mass/Vol] 9.6 mg/dL Normal 8.5-10.2 [facility] Comment on above: Order Comment: Speci men Type: BLOOD SPECIMENOrdering Facility: [facility] Address: [address] [place] [address] Performed By: #### 2 4321-2 ####[facility] LABCLIA [id number] [place] [address] [place] Chloride [Moles/Vol] 100 mmol/L Normal 98-107 [facility] Comment on above: Order Comment: Speci men Type: BLOOD SPECIMENOrdering Facility: [facility] Address: [address] [place] [address] Performed By: #### 2 4321-2 ####[facility] LABCLIA [id number] [place] [id number] [place] CO2 [Moles/Vol] 26 mmol/L Normal 22-30 [facility] Comment on above: Order Comment: Speci men Type: BLOOD SPECIMENOrdering Facility: [facility] Address: [address] [place] [address] Performed By: #### 2 4321-2 ####[facility] LABIA [id number] [place] [address] [place] Creatinine [Mass/Vol] 0.79 mg/dL Normal 0.58-0.96 [facility] Comment on above: Order Comment: Speci men Type: BLOOD SPECIMENOrdering Facility: [facility] Address: [address] [place] [address] Performed By: #### 2 4321-2 ####[facility] LABIA [id number] [place] [address] [place] Creatinine and Glomerular filtration rate.predicted panel (S/P/Bld) 74 mL/min/1.73m??? Normal >=60 [facility] Comment on above: Order Comment: Speci men Type: BLOOD SPECIMENOrdering Facility: [facility] Address: [address] [place] [address] Result Comment: Kimberley mated Glomerular Filtration Rate [...] #### 2 4321-2 ####[facility] LABCLIA [id number] [place] [address] [place] Glucose [Mass/Vol] 256 mg/dL High 74-99 [facility] Comment on above: Order Comment: Speci men Type: BLOOD SPECIMENOrdering Facility: [facility] Address: [address] [place] [address] Result Comment: The [place] Diabetes Association (ADA) provides guidance for cutoff [...] Standards of Medical Care in Diabetes 2016, [place] Diabetes Association. Diabetes Care. 2016.39(Suppl 1). Performed By: #### 2 4321-2 ####[facility] LABCLIA [id number] [place] [address] [place] Potassium [Moles/Vol] 3.8 mmol/L Normal 3.7-5.1 [facility] Comment on above: Order Comment: Speci men Type: BLOOD SPECIMENOrdering Facility: [facility] Address: [address] [place] [address] Performed By: #### 2 4321-2 ####[facility] LABCLIA [id number] [place] [address] [place] Sodium [Moles/Vol] 138 mmol/L Normal 136-144 [facility] Comment on above: Order Comment: Speci men Type: BLOOD SPECIMENOrdering Facility: [facility] Address: [address] [place] [address] Performed By: #### 2 4321-2 ####[facility] LABCLIA [id number] [address] [address] [place] Urea nitrogen [Mass/Vol] 14 mg/dL Normal 7-21 [facility] Comment on above: Order Comment: Speci men Type: BLOOD SPECIMENOrdering Facility: [facility] Address: [address] [place], [place] [address] Performed By: #### 2 4321-2 ####[facility] LABCLIA [id number] [place] [address] [place] CNPNon 11-07-2023 CNPN Normal [facility] CT CHEST WO IVCONon 10-24-19 CT CHEST WO IVCON Normal [facility] Basic metabolic 2000 panelon 10-17-2023 Anion gap [Moles/Vol] 14 mmol/L Normal 8-15 [facility] Comment on above: Order Comment: Speci men Type: BLOOD SPECIMENOrdering Facility: [facility] Address: [address] [place] [address] Performed By: #### 2 4321-2 ####[facility] LABCLIA [id number] [place] [address] [place] Calcium [Mass/Vol] 9.1 mg/dL Normal 8.5-10.2 [facility] Comment on above: Order Comment: Speci men Type: BLOOD SPECIMENOrdering Facility: [facility] Address: [address] [place], [place] [address] Performed By: #### 2 4321-2 ####[facility] LABCLIA [id number] [place] [id number] [place] Chloride [Moles/Vol] 99 mmol/L Normal 98-107 [facility] Comment on above: Order Comment: Speci men Type: BLOOD SPECIMENOrdering Facility: [facility] Address: [address] [place], [place] [address] Performed By: #### 2 4321-2 ####[facility] LABCLIA [id number] [place] [address] [place] CO2 [Moles/Vol] 21 mmol/L Low 22-30 [facility] Comment on above: Order Comment: Speci men Type: BLOOD SPECIMENOrdering Facility: [facility] Address: [address] [place] [address] Performed By: #### 2 4321-2 ####[facility] LABCLIA [id number] [place] [address] [place] Creatinine [Mass/Vol] 0.79 mg/dL Normal 0.58-0.96 [facility] Comment on above: Order Comment: Speci men Type: BLOOD SPECIMENOrdering Facility: [facility] Address: [address] [place] [address] Performed By: #### 2 4321-2 ####[facility] LABCLIA [id number] [place] [address] [place] Creatinine and Glomerular filtration rate.predicted panel (S/P/Bld) 74 mL/min/1.73m??? Normal >=60 [facility] Comment on above: Order Comment: Speci men Type: BLOOD SPECIMENOrdering Facility: [facility] Address: [address] [place] [address] Result Comment: Kimberley mated Glomerular Filtration Rate [...] #### 2 4321-2 ####[facility] LABCLIA [id number] [place] [address] [place] Glucose [Mass/Vol] 328 mg/dL High 74-99 [facility] Comment on above: Order Comment: Speci men Type: BLOOD SPECIMENOrdering Facility: [facility] Address: [address] [place] [address] Result Comment: The [place] [employer] (ADA) provides guidance for cutoff [...] Standards of Medical Care in Diabetes 2016, [place] [employer]. Diabetes Care. 2016.39(Suppl 1). Performed By: #### 2 4321-2 ####[facility] LABCLIA [id number] [place] [address] [place] Potassium [Moles/Vol] 3.9 mmol/L Normal 3.7-5.1 [facility] Comment on above: Order Comment: Speci men Type: BLOOD SPECIMENOrdering Facility: [facility] Address: [address] [place] [address] Performed By: #### 2 4321-2 ####[facility] LABIA [id number] [place] [address] [place] Sodium [Moles/Vol] 134 mmol/L Low 136-144 [facility] Comment on above: Order Comment: Speci men Type: BLOOD SPECIMENOrdering Facility: [facility] Address: [address] [place] [address] Performed By: #### 2 4321-2 ####[facility] LABCLIA [id number] [place] [address] [place] Urea nitrogen [Mass/Vol] 18 mg/dL Normal 7-21 [facility] Comment on above: Order Comment: Speci men Type: BLOOD SPECIMENOrdering Facility: [facility] Address: [address] [place] [address] Performed By: #### 2 4321-2 ####[facility] LABCLIA [id number] [place] [address] [place] CNNURSEon 10-12-2023 CNNURSE Normal [facility] CNPNon 10-11-2023 CNPN Normal [facility] Bilirub Conj SerPl-mCncon Bilirubin.conjugated [Mass/Vol] mg/dL Normal <0.2 [facility] Comment on above: Order Comment: Speci men Type: BLOOD SPECIMENOrdering Facility: [facility] Address: [address] [place] [address] Result Comment: Resu lts may be falsely decreased due to interference from hemolysis. Suggest reorder as clinically indicated. Performed By: #### 1 5152-2, 71303-0 ####[facility] LABCLIA [id number] [place] [address] [place] CNOVon 10-10-2023 CNOV Normal [facility] Comprehensive metabolic 2000 panelon 10-10-2023 Albumin [Mass/Vol] 4.1 g/dL Normal 3.9-4.9 [facility] Comment on above: Order Comment: Speci men Type: BLOOD SPECIMENOrdering Facility: [facility] Address: [address] [place] [address] Performed By: #### 1 5152-2, ####[facility] LABCLIA [id number] [place] [address] [place] ALP [Catalytic activity/Vol] 94 U/L Normal 34-123 [facility] Comment on above: Order Comment: Speci men Type: BLOOD SPECIMENOrdering Facility: [facility] Address: [address] [place] [address] Performed By: #### 1 5152-2, ####[facility] LABCLIA [id number] [place] [address] [place] ALT [Catalytic activity/Vol] 46 U/L High 7-38 [facility] Comment on above: Order Comment: Speci men Type: BLOOD SPECIMENOrdering Facility: [facility] Address: [address] [place] [address] Performed By: #### 1 5152-2, 39333-6 ####[facility] LABCLIA [id number] [place] [address] [place] Anion gap [Moles/Vol] 16 mmol/L High 8-15 [facility] Comment on above: Order Comment: Speci men Type: BLOOD SPECIMENOrdering Facility: [facility] Address: [address] [place] [address] Performed By: #### 1 5152-2, 14653-2 ####[facility] LABCLIA [id number] [place] [address] [place] AST [Catalytic activity/Vol] 19 U/L Normal 13-35 [facility] Comment on above: Order Comment: Speci men Type: BLOOD SPECIMENOrdering Facility: [facility] Address: [address] [place] [address] Result Comment: Resu lts may be falsely increased due to interference from hemolysis. Suggest reorder as clinically indicated. Performed By: #### 1 5152-2, 51328-8 ####[facility] LABCLIA [id number] [place] [address] [place] Bilirubin [Mass/Vol] 0.6 mg/dL Normal 0.2-1.3 [facility] Comment on above: Order Comment: Speci men Type: BLOOD SPECIMENOrdering Facility: [facility] Address: [address] [place] [address] Performed By: #### 1 5152-2, 38274-2 ####[facility] LABCLIA [id number] [place] [address] [place] Calcium [Mass/Vol] 10.1 mg/dL Normal 8.5-10.2 [facility] Comment on above: Order Comment: Speci men Type: BLOOD SPECIMENOrdering Facility: [facility] Address: [address] [place] [address] Performed By: #### 1 5152-2, 15699-1 ####[facility] LABCLIA [id number] [place] [address] [place] Chloride [Moles/Vol] 89 mmol/L Low 98-107 [facility] Comment on above: Order Comment: Speci men Type: BLOOD SPECIMENOrdering Facility: [facility] Address: [address] [place] [address] Performed By: #### 1 5152-2, 55518-2 ####[facility] LABCLIA [id number] [place] [address] [place] CO2 [Moles/Vol] 21 mmol/L Low 22-30 [facility] Comment on above: Order Comment: Speci men Type: BLOOD SPECIMENOrdering Facility: [facility] Address: [address] [place] [address] Performed By: #### 1 5152-2, 17835-2 ####[facility] LABCLIA [id number] [place] [address] [place] Creatinine [Mass/Vol] 1.08 mg/dL High 0.58-0.96 [facility] Comment on above: Order Comment: Speci men Type: BLOOD SPECIMENOrdering Facility: [facility] Address: [address] [place] [address] Performed By: #### 1 5152-2, 30408-7 ####[facility] LABCLIA [id number] [place] [address] [place] Creatinine and Glomerular filtration rate.predicted panel (S/P/Bld) 51 mL/min/1.73m??? Low >=60 [facility] Comment on above: Order Comment: Speci men Type: BLOOD SPECIMENOrdering Facility: [facility] Address: [address] [place] [address] Result Comment: Kimberley mated Glomerular Filtration Rate [...] actual GFR. Performed By: #### 1 5152-2, 74461-1 ####[facility] LABCLIA [id number] [place] [address] [place] Glucose [Mass/Vol] 534 mg/dL High 74-99 [facility] Comment on above: Order Comment: Speci men Type: BLOOD SPECIMENOrdering Facility: [facility] Address: [address] [place] [address] Result Comment: The [place] Diabetes Association (ADA) provides guidance for cutoff [...] Standards of Medical Care in Diabetes 2016, [place] [employer]. Diabetes Care. 2016.39(Suppl 1). Performed By: #### 1 5152-2, 40787-9 ####[facility] LABIA [id number] [place] [address] [place] Potassium [Moles/Vol] 4.0 mmol/L Normal 3.7-5.1 [facility] Comment on above: Order Comment: Ana Mi men Type: BLOOD SPECIMENOrdering Facility: [facility] Address: [address] [place] [address] Performed By: #### 1 5152-2, 81259-4 ####[facility] LABIA [id number] [place] [address] [place] Protein [Mass/Vol] 7.2 g/dL Normal 6.3-8.0 [facility] Comment on above: Order Comment: Speci men Type: BLOOD SPECIMENOrdering Facility: [facility] Address: [address] [place] [address] Performed By: #### 1 5152-2, 34773-6 ####[facility] LABCLIA [id number] [place] [address] [place] Sodium [Moles/Vol] 126 mmol/L Low 136-144 [facility] Comment on above: Order Comment: Speci men Type: BLOOD SPECIMENOrdering Facility: [facility] Address: [address] [place] [address] Performed By: #### 1 5152-2, 03346-1 ####[facility] LABCLIA [id number] [place] [address] [place] Urea nitrogen [Mass/Vol] 28 mg/dL High 7-21 [facility] Comment on above: Order Comment: Speci men Type: BLOOD SPECIMENOrdering Facility: [facility] Address: [address] [place] [address] Performed By: #### 1 5152-2, 49610-4 ####[facility] LABCLIA [id number] [place] [address] [place] CNOVon 10-04-2023 CNOV Normal [facility] US CAROTID ARTERIES KWADWO VAS LABon 09-29-2023 US CAROTID ARTERIES KWADWO VAS LAB Normal [facility] CNOVon 09-23-2023 CNOV Normal [facility] ALBUMIN/CREATININE RATIO, UR INEon 09-15-2023 Albumin DL <= 20 mg/L (U) [Mass/Vol] 54.8 mg/L Normal [facility] Comment on above: Order Comment: Speci men Type: URINE SPECIMENOrdering Facility: [facility] Address: [address] [place] [address] Performed By: #### U ACR ####[facility] LABCLIA [id number] [place] [address] [place] Albumin/Creatinine (U) [Mass ratio] 79 mg/g High <30 [facility] Comment on above: Order Comment: Speci men Type: URINE SPECIMENOrdering Facility: [facility] Address: [address] [place] [address] Result Comment: Adul t Male and Female Nephrotic Criteria:<30 mg/g is considered normal to mildly gxvndzywz15-566 mg/g is considered moderately increased>300 mg/g is considered severely increasedKDIGO. (2013). KDIGO 2012 Clinical Practice Guideline for the Evaluation and Management of Chronic Kidney Disease. Official Journal of the International Society of Nephrology, 3(1), 1-150. Performed By: #### U ACR ####[facility] LABCLIA [id number] [place] [address] [place] Creatinine (U) [Mass/Vol] 69.6 mg/dL Normal 20.0-300.0 [facility] Comment on above: Order Comment: Speci men Type: URINE SPECIMENOrdering Facility: [facility] Address: [address] [place] [address] Performed By: #### U ACR ####[facility] LABCLIA [id number] [place] [address] [place] CBC W Auto Differential pane l (Bld)on 09-15-2023 Basophils (Bld) [#/Vol] 0.04 10*3/uL Normal <0.11 [facility] Comment on above: Order Comment: Speci men Type: BLOOD SPECIMENOrdering Facility: [facility] Address: [address] [place] [address] Performed By: #### 5 7021-8 ####[facility] LABCLIA [id number] [place] [address] [place] Basophils/100 WBC (Bld) 0.6 % Normal [facility] Comment on above: Order Comment: Speci men Type: BLOOD SPECIMENOrdering Facility: [facility] Address: [address] [place] [address] Performed By: #### 5 7021-8 ####[facility] LABCLIA [id number] [place] [address] [place] Differential cell count method Nom (Bld) Auto Normal [facility] Comment on above: Order Comment: Speci men Type: BLOOD SPECIMENOrdering Facility: [facility] Address: [address] [place] [address] Performed By: #### 5 7021-8 ####[facility] LABCLIA [id number] [place] [address] [place] Eosinophils (Bld) [#/Vol] 0.11 10*3/uL Normal <0.46 [facility] Comment on above: Order Comment: Speci men Type: BLOOD SPECIMENOrdering Facility: [facility] Address: [address] [place] [address] Performed By: #### 5 7021-8 ####[facility] LABCLIA [id number] [place] [address] [place] Eosinophils/100 WBC (Bld) 1.8 % Normal [facility] Comment on above: Order Comment: Speci men Type: BLOOD SPECIMENOrdering Facility: [facility] Address: [address] [place] [address] Performed By: #### 5 7021-8 ####[facility] LABCLIA [id number] [place] [address] [place] Erythrocyte distribution width (RBC) [Ratio] 15.0 % Normal 11.5-15.0 [facility] Comment on above: Order Comment: Speci men Type: BLOOD SPECIMENOrdering Facility: [facility] Address: [address] [place] [address] Performed By: #### 5 7021-8 ####[facility] LABCLIA [id number] [place] [address] [place] Hematocrit (Bld) [Volume fraction] 42.4 % Normal 36.0-46.0 [facility] Comment on above: Order Comment: Speci men Type: BLOOD SPECIMENOrdering Facility: [facility] Address: [address] [place] [address] Performed By: #### 5 7021-8 ####[facility] LABCLIA [id number] [place] [address] [place] Hemoglobin (Bld) [Mass/Vol] 14.0 g/dL Normal 11.5-15.5 [facility] Comment on above: Order Comment: Speci men Type: BLOOD SPECIMENOrdering Facility: [facility] Address: [address] [place] [address] Performed By: #### 5 7021-8 ####[facility] LABCLIA [id number] [place] [address] [place] Immature granulocytes (Bld) [#/Vol] 10*3/uL Normal <0.10 [facility] Comment on above: Order Comment: Speci men Type: BLOOD SPECIMENOrdering Facility: [facility] Address: [address] [place] [address] Performed By: #### 5 7021-8 ####[facility] LABCLIA [id number] [place] [address] [place] Immature granulocytes/100 WBC (Bld) 0.2 % Normal [facility] Comment on above: Order Comment: Speci men Type: BLOOD SPECIMENOrdering Facility: [facility] Address: [address] [place] [address] Performed By: #### 5 7021-8 ####[facility] LABCLIA [id number] [place] [address] [place] Lymphocytes (Bld) [#/Vol] 1.87 10*3/uL Normal 1.00-4.00 [facility] Comment on above: Order Comment: Speci men Type: BLOOD SPECIMENOrdering Facility: [facility] Address: [address] [place] [address] Performed By: #### 5 7021-8 ####[facility] LABIA [id number] [place] [address] [place] Lymphocytes/100 WBC (Bld) 29.8 % Normal [facility] Comment on above: Order Comment: Speci men Type: BLOOD SPECIMENOrdering Facility: [facility] Address: [address] [place] [address] Performed By: #### 5 7021-8 ####[facility] [id number] [place] [address] [place] MCH (RBC) [Entitic mass] 32.0 pg Normal 26.0-34.0 [facility] Comment on above: Order Comment: Speci men Type: BLOOD SPECIMENOrdering Facility: [facility] Address: [address] [place] [address] Performed By: #### 5 7021-8 ####[facility] LABIA [id number] [place] [address] [place] MCHC (RBC) [Mass/Vol] 33.0 g/dL Normal 30.5-36.0 [facility] Comment on above: Order Comment: Speci men Type: BLOOD SPECIMENOrdering Facility: [facility] Address: [address] [place] [address] Performed By: #### 5 7021-8 ####[facility] LABIA [id number] [place] [address] [place] MCV (RBC) [Entitic vol] 97.0 fL Normal 80.0-100.0 [facility] Comment on above: Order Comment: Speci men Type: BLOOD SPECIMENOrdering Facility: [facility] Address: [address] [place] [address] Performed By: #### 5 7021-8 ####[facility] LABCLIA [id number] [place] [address] [place] Monocytes (Bld) [#/Vol] 0.67 10*3/uL Normal <0.87 [facility] Comment on above: Order Comment: Speci men Type: BLOOD SPECIMENOrdering Facility: [facility] Address: [address] [place] [address] Performed By: #### 5 7021-8 ####[facility] LABCLIA [id number] [place] [address] [place] Monocytes/100 WBC (Bld) 10.7 % Normal [facility] Comment on above: Order Comment: Speci men Type: BLOOD SPECIMENOrdering Facility: [facility] Address: [address] [place] [address] Performed By: #### 5 7021-8 ####[facility] LABCLIA [id number] [place] [address] [place] Neutrophils (Bld) [#/Vol] 3.57 10*3/uL Normal 1.45-7.50 [facility] Comment on above: Order Comment: Speci men Type: BLOOD SPECIMENOrdering Facility: [facility] Address: [address] [place] [address] Performed By: #### 5 7021-8 ####[facility] LABCLIA [id number] [place] [address] [place] Neutrophils/100 WBC (Bld) 56.9 % Normal [facility] Comment on above: Order Comment: Speci men Type: BLOOD SPECIMENOrdering Facility: [facility] Address: [address] [place] [address] Performed By: #### 5 7021-8 ####[facility] LABCLIA [id number] [place] [address] [place] Nucleated RBC (Bld) [#/Vol] 10*3/uL Normal <0.01 [facility] Comment on above: Order Comment: Speci men Type: BLOOD SPECIMENOrdering Facility: [facility] Address: [address] [place] [address] Performed By: #### 5 7021-8 ####[facility] LABIA [id number] [place] [address] [place] Nucleated RBC/100 WBC (Bld) [Ratio] 0.0 /100 WBC Normal [facility] Comment on above: Order Comment: Speci men Type: BLOOD SPECIMENOrdering Facility: [facility] Address: [address] [place] [address] Performed By: #### 5 7021-8 ####[facility] [id number] [place] [address] [place] Platelet mean volume (Bld) [Entitic vol] 13.6 fL High 9.0-12.7 [facility] Comment on above: Order Comment: Speci men Type: BLOOD SPECIMENOrdering Facility: [facility] Address: [address] [place] [address] Performed By: #### 5 7021-8 ####[facility] [id number] [place] [address] [place] Platelets (Bld) [#/Vol] 227 10*3/uL Normal 150-400 [facility] Comment on above: Order Comment: Speci men Type: BLOOD SPECIMENOrdering Facility: [facility] Address: [address] [place] [address] Result Comment: Resu lts checked and verified.No clot detected. Performed By: #### 5 7021-8 ####[facility] LABIA [id number] [place] [address] [place] RBC (Bld) [#/Vol] 4.37 10*6/uL Normal 3.90-5.20 [facility] Comment on above: Order Comment: Speci men Type: BLOOD SPECIMENOrdering Facility: [facility] Address: [address] [place] [address] Performed By: #### 5 7021-8 ####[facility] LABCLIA [id number] [address] [address] [place] WBC (Bld) [#/Vol] 6.27 10*3/uL Normal 3.70-11.00 [facility] Comment on above: Order Comment: Speci men Type: BLOOD SPECIMENOrdering Facility: [facility] Address: [address] [place] [address] Performed By: #### 5 7021-8 ####[facility] LABCLIA [id number] [place] [address] [place] Cholesterol in LDL Direct as say [Mass/Vol]on 09-15-2023 Cholesterol in LDL [Mass/Vol] 44 mg/dL Normal <100 [facility] Comment on above: Order Comment: Speci men Type: BLOOD SPECIMENOrdering Facility: [facility] Address: [address] [place] [address] Result Comment: <100 mg/dL, Optimal 100-129 mg/dL, Near optimal/above optimal 130-159 mg/dL, Borderline high 160-189 mg/dL, High>189 mg/dL, Very highSecondary prevention optimal LDL Cholesterol levels are recommended to be < 70 mg/dL Performed By: #### 2 4323-8, 62542-9, 36964-2, 3016-3 ####[facility] LABCLIA [id number] [place] [id number] [place] Cholesterol in VLDL [Mass/Vol] 114 mg/dL High <30 [facility] Comment on above: Order Comment: Speci men Type: BLOOD SPECIMENOrdering Facility: [facility] Address: [address] [place] [address] Performed By: #### 2 4323-8, 43758-8, 45546-4, 3016-3 ####[facility] LABCLIA [id number] [place] [id number] [place] Comprehensive metabolic 2000 panelon 09-15-2023 Albumin [Mass/Vol] 4.1 g/dL Normal 3.9-4.9 [facility] Comment on above: Order Comment: Speci men Type: BLOOD SPECIMENOrdering Facility: [facility] Address: [address] [place] [address] Performed By: #### 2 4323-8, 15932-3, 66231-2, 3016-3 ####[facility] LABCLIA [id number] [place] [address] [place] ALP [Catalytic activity/Vol] 52 U/L Normal 34-123 [facility] Comment on above: Order Comment: Speci men Type: BLOOD SPECIMENOrdering Facility: [facility] Address: [address] [place] [address] Performed By: #### 2 4323-8, 30650-3, 65846-6, 3016-3 ####[facility] LABCLIA [id number] [place] [address] [place] ALT [Catalytic activity/Vol] 33 U/L Normal 7-38 [facility] Comment on above: Order Comment: Speci men Type: BLOOD SPECIMENOrdering Facility: [facility] Address: [address] [place] [address] Performed By: #### 2 4323-8, 92332-1, 94068-4, 3016-3 ####[facility] LABCLIA [id number] [place] [id number] [place] Anion gap [Moles/Vol] 13 mmol/L Normal 9-18 [facility] Comment on above: Order Comment: Speci men Type: BLOOD SPECIMENOrdering Facility: [facility] Address: [address] [place] [address] Performed By: #### 2 4323-8, 25581-7, 73175-2, 3016-3 ####[facility] [facility] [id number] [address] [address] [place] AST [Catalytic activity/Vol] 26 U/L Normal 13-35 [facility] Comment on above: Order Comment: Speci men Type: BLOOD SPECIMENOrdering Facility: [facility] Address: [address] [place] [address] Performed By: #### 2 4323-8, 64721-9, 05040-5, 3016-3 ####[facility] [id number] [place] [address] [place] Bilirubin [Mass/Vol] 0.5 mg/dL Normal 0.2-1.3 [facility] Comment on above: Order Comment: Speci men Type: BLOOD SPECIMENOrdering Facility: [facility] Address: [address] [place] [address] Performed By: #### 2 4323-8, 39741-7, 85437-9, 6-3 ####[facility] [id number] [place] [address] [place] Calcium [Mass/Vol] 9.7 mg/dL Normal 8.5-10.2 [facility] Comment on above: Order Comment: Speci men Type: BLOOD SPECIMENOrdering Facility: [facility] Address: [address] [place] [address] Performed By: #### 2 4323-8, 85695-3, 95010-0, 3016-3 ####[facility] [id number] [place] [address] [place] Chloride [Moles/Vol] 97 mmol/L Normal 97-105 [facility] Comment on above: Order Comment: Speci men Type: BLOOD SPECIMENOrdering Facility: [facility] Address: [address] [place] [address] Performed By: #### 2 4323-8, 07300-3, 46543-3, 3016-3 ####[facility] [id number] [place] [address] [place] CO2 [Moles/Vol] 25 mmol/L Normal 22-30 [facility] Comment on above: Order Comment: Speci men Type: BLOOD SPECIMENOrdering Facility: [facility] Address: [address] [place] [address] Performed By: #### 2 4323-8, 88392-0, 91278-6, 3016-3 ####[facility] [id number] [place] [address] [place] Creatinine [Mass/Vol] 0.76 mg/dL Normal 0.58-0.96 [facility] Comment on above: Order Comment: Speci men Type: BLOOD SPECIMENOrdering Facility: [facility] Address: [address] [place] [address] Performed By: #### 2 4323-8, 11863-0, 39364-2, 6-3 ####[facility] [id number] [place] [address] [place] Creatinine and Glomerular filtration rate.predicted panel (S/P/Bld) 78 mL/min/1.73m??? Normal >=60 [facility] Comment on above: Order Comment: Speci octavio Type: BLOOD SPECIMENOrdering Facility: [facility] Address: [address] [place] [address] Result Comment: Kimberley mated Glomerular Filtration Rate [...] actual GFR. Performed By: #### 2 4323-8, 91019-7, 82842-8, 3016-3 ####[facility]IA [id number] [place] [address] [place] Glucose [Mass/Vol] 304 mg/dL High 74-99 [facility] Comment on above: Order Comment: Speci men Type: BLOOD SPECIMENOrdering Facility: [facility] Address: [address] [place] [address] Result Comment: The [place] Diabetes Association (ADA) provides guidance for cutoff [...] Standards of Medical Care in Diabetes 2016, [place] [employer] Association. Diabetes Care. 2016.39(Suppl 1). Performed By: #### 2 4323-8, 44375-7, 60621-3, 3016-3 ####[facility] [id number] [place] [address] [place] Potassium [Moles/Vol] 4.2 mmol/L Normal 3.7-5.1 [facility] Comment on above: Order Comment: Speci men Type: BLOOD SPECIMENOrdering Facility: [facility] Address: [address] [place] [address] Performed By: #### 2 4323-8, 18105-3, 58255-1, 3016-3 ####[facility] [id number] [place] [address] [place] Protein [Mass/Vol] 7.3 g/dL Normal 6.3-8.0 [facility] Comment on above: Order Comment: Speci men Type: BLOOD SPECIMENOrdering Facility: [facility] Address: [address] [place] [address] Performed By: #### 2 4323-8, 85136-7, 40639-4, 3016-3 ####[facility] [id number] [place] [address] [place] Sodium [Moles/Vol] 135 mmol/L Low 136-144 [facility] Comment on above: Order Comment: Speci men Type: BLOOD SPECIMENOrdering Facility: [facility] Address: [address] [place] [address] Performed By: #### 2 4323-8, 11833-3, 66449-8, 3016-3 ####[facility] [id number] [place] [address] [place] Urea nitrogen [Mass/Vol] 17 mg/dL Normal 7-21 [facility] Comment on above: Order Comment: Speci men Type: BLOOD SPECIMENOrdering Facility: [facility] Address: [address] [place] [address] Performed By: #### 2 4323-8, 65072-2, 84905-3, 3016-3 ####[facility] [id number] [place] [address] [place] HbA1c (Bld)on 09-15-2023 Average glucose Estimated from glycated hemoglobin (Bld) [Mass/Vol] 214 mg/dL Normal [facility] Comment on above: Order Comment: Speci men Type: BLOOD SPECIMENOrdering Facility: [facility] Address: [address] [place] [address] Result Comment: eAG: (Estimated average glucose) is a calculated value from HgbA1c and is sales representative of the average blood glucose level in the last 2-3 month period. Performed By: #### 5 5454-3 ####[facility] [id number] [place] [address] [place] HbA1c (Bld) [Mass fraction] 9.1 % High 4.3-5.6 [facility] Comment on above: Order Comment: Speci men Type: BLOOD SPECIMENOrdering Facility: [facility] Address: [address], [place] [address] Result Comment: Amer [place] Diabetes Association guidelines indicate that patients with HgbA1c in the range 5.7-6.4% are at increased risk for development of diabetes, and intervention by lifestyle modification may be beneficial. HgbA1c greater or equal to 6.5% is considered diagnostic of diabetes. Performed By: #### 5 5454-3 ####[facility] [id number] [place] [address] [place] Lipid 1996 panelon 4 Cholesterol [Mass/Vol] 183 mg/dL Normal <200 [facility] Comment on above: Order Comment: Speci men Type: BLOOD SPECIMENOrdering Facility: [facility] Address: [address] [place] [address] Result Comment: <200 mg/dL, Desirable 200-239 mg/dL, Borderline high>239 mg/dL, High Performed By: #### 2 4323-8, 62420-0, 64046-7, 3016-3 ####[facility] [id number] [address] [place] Cholesterol in HDL [Mass/Vol] 25 mg/dL Low >39 [facility] Comment on above: Order Comment: Miguel cunningham Type: BLOOD SPECIMENOrdering Facility: [facility] Address: [address] [place] [address] Result Comment: 40-5 9 mg/dL, Acceptable>59 mg/dL, High: Negative risk factor for coronary heart disease<40 mg/dL, Low: Positive risk factor for coronary heart disease Performed By: #### 2 4323-8, 66564-8, 92375-4, 3016-3 ####[facility] [id number] [place] [address] [place] Cholesterol in LDL [Mass/Vol] Normal [facility] Comment on above: Order Comment: Ana Mi men Type: BLOOD SPECIMENOrdering Facility: [facility] Address: [address] [place] [address] Result Comment: Unab le to calculate due to increased Triglycerides. See LDL-Chol, Direct. Performed By: #### 2 4323-8, 68674-9, 07241-9, 3016-3 ####[facility] LABIA [id number] [address] [address] [place] Cholesterol in LDL/Cholesterol in HDL [Mass ratio] Normal [facility] Comment on above: Order Comment: Speci men Type: BLOOD SPECIMENOrdering Facility: [facility] Address: [address] [place] [address] Result Comment: Unab le to calculate due to elevated Triglycerides.Reference:1. National Cholesterol Education Program ATP III Guideline At-A-Glance Quick Desk Reference: National Heart, Lung, and Blood Commerce. National Institutes of Health. 2001: NIH Publication No. 01-3305.2. An International Atherosclerosis Society position paper: global recommendations for the management of dyslipidemia: executive summary, Atherosclerosis. 2014: 232(2):410-413. Performed By: #### 2 4323-8, 67197-1, 03493-9, 3016-3 ####[facility]IA [id number] [address] [address] [place] Cholesterol in VLDL [Mass/Vol] Normal [facility] Comment on above: Order Comment: Speci men Type: BLOOD SPECIMENOrdering Facility: [facility] Address: [address] [place] [address] Result Comment: Unab le to calculate due to increased Triglycerides. See LDL-Chol, Direct. Performed By: #### 2 4323-8, 05432-7, 83233-5, 3016-3 ####[facility] LABIA [id number] [address] [address] [place] Cholesterol non HDL [Mass/Vol] 158 mg/dL High <130 [facility] Comment on above: Order Comment: Speci men Type: BLOOD SPECIMENOrdering Facility: [facility] Address: [address] [place] [address] Result Comment: <130 mg/dL, Optimal 130-159 mg/dL, Near optimal/above optimal 160-189 mg/dL, Borderline high 190-219 mg/dL, High>219 mg/dL, Very highSecondary prevention optimal non HDL Cholesterol levels are recommended to be <100 mg/dL Performed By: #### 2 4323-8, 56460-1, 04063-3, 3015-3 ####[facility] [id number] [address] [address] [place] Cholesterol.total/Roz sterol in HDL [Mass ratio] 7.32 {ratio} High <5.10 [facility] Comment on above: Order Comment: Speci men Type: BLOOD SPECIMENOrdering Facility: [facility] Address: [address] [place] [address] Performed By: #### 2 4323-8, 47667-6, 78115-6, 3015-3 ####[facility]IA [id number] [address] [place] FASTING TIME 14 hrs Normal [facility] Comment on above: Order Comment: Speci men Type: BLOOD SPECIMENOrdering Facility: [facility] Address: [address] [place] [address] Performed By: #### 2 4323-8, 71123-4, 69973-9, 3015-3 ####[facility]IA [id number] [address] [address] [place] Triglyceride [Mass/Vol] 527 mg/dL High <150 [facility] Comment on above: Order Comment: Speci men Type: BLOOD SPECIMENOrdering Facility: [facility] Address: [address] [place] [id number] Result Comment: <150 mg/dL, Normal 150-199 mg/dL, Borderline high 200-499 mg/dL, High>499 mg/dL, Very high Performed By: #### 2 4323-8, 72683-8, 18571-8, 3015-3 ####[facility] [id number] [address] [address] [place] TSH SerPl-aCncon 09-15-2023 TSH Qn 2.580 m[IU]/L Normal 0.270-4.200 [facility] Comment on above: Order Comment: Speci men Type: BLOOD SPECIMENOrdering Facility: [facility] Address: [address] [place] [address] Performed By: #### 2 4323-8, 68419-8, 85360-0, 3016-3 ####[facility] [id number] [facility] [id number] STATES OF [facility] CT CHEST WO IVCONon 11-23-19 [facility] No Panel Informationon 10-12 [facility] DXA-AXIAL SKELETONon 023 LOWEST T-SCORE -1.9 [facility] CBC W Auto Differential pane l (Bld)on 07-01-2022 Basophils (Bld) [#/Vol] 0.06 10*3/uL <0.11 k/uL [facility] Basophils/100 WBC (Bld) 1.0 % [facility] Differential cell count method Nom (Bld) Auto [facility] Eosinophils (Bld) [#/Vol] 0.13 10*3/uL <0.46 k/uL [facility] Eosinophils/100 WBC (Bld) 2.1 % [facility] Erythrocyte distribution width (RBC) [Ratio] 14.2 % 11.5 - 15.0 % [facility] Hematocrit (Bld) [Volume fraction] 39.7 % 36.0 - 46.0 % [facility] Hemoglobin (Bld) [Mass/Vol] 13.3 g/dL 11.5 - 15.5 g/dL [facility] Immature granulocytes (Bld) [#/Vol] <0.10 k/uL [facility] Immature granulocytes/100 WBC (Bld) 0.3 % [facility] Lymphocytes (Bld) [#/Vol] 1.80 10*3/uL 1.00 - 4.00 k/uL [facility] Lymphocytes/100 WBC (Bld) 28.7 % [facility] MCH (RBC) [Entitic mass] 33.1 pg 26.0 - 34.0 pg [facility] MCHC (RBC) [Mass/Vol] 33.5 g/dL 30.5 - 36.0 g/dL [facility] MCV (RBC) [Entitic vol] 98.8 fL 80.0 - 100.0 fL [facility] Monocytes (Bld) [#/Vol] 0.64 10*3/uL <0.87 k/uL [facility] Monocytes/100 WBC (Bld) 10.2 % [facility] Neutrophils (Bld) [#/Vol] 3.62 10*3/uL 1.45 - 7.50 k/uL [facility] Neutrophils/100 WBC (Bld) 57.7 % [facility] Nucleated RBC (Bld) [#/Vol] 0.03 10*3/uL High <0.01 k/uL [facility] Nucleated RBC/100 WBC (Bld) [Ratio] 0.5 /100 WBC [facility] Platelet mean volume (Bld) [Entitic vol] 10.7 fL 9.0 - 12.7 fL [facility] Platelets (Bld) [#/Vol] 216 10*3/uL 150 - 400 k/uL [facility] RBC (Bld) [#/Vol] 4.02 10*6/uL 3.90 - 5.2 0 m/uL [facility] WBC (Bld) [#/Vol] 6.27 10*3/uL 3.70 - 11. 00 k/uL [facility] Comprehensive metabolic 2000 panelon 07-01-2022 Albumin [Mass/Vol] 4.1 g/dL 3.9 - 4.9 g/dL [facility] ALP [Catalytic activity/Vol] 41 U/L 34 - 123 U/L [facility] ALT [Catalytic activity/Vol] 30 U/L 7 - 38 U/L [facility] Anion gap [Moles/Vol] 10 mmol/L 9 - 18 mmol/L [facility] AST [Catalytic activity/Vol] 23 U/L 13 - 35 U/L [facility] Bilirubin [Mass/Vol] 0.5 mg/dL 0.2 - 1 .3 mg/dL [facility] Calcium [Mass/Vol] 9.7 mg/dL 8.5 - 10. 2 mg/dL [facility] Chloride [Moles/Vol] 100 mmol/L 97 - 10 5 mmol/L [facility] CO2 [Moles/Vol] 27 mmol/L 22 - 30 mmol/L [facility] Creatinine [Mass/Vol] 1.08 mg/dL High 0.58 - 0.96 mg/dL [facility] Estimated Glomerular Filtration Rate 51 mL/min/1.73m Low >=60 mL/min/1.73m [facility] Glucose [Mass/Vol] 192 mg/dL High 74 - 99 mg/dL [facility] Potassium [Moles/Vol] 4.0 mmol/L 3.7 - 5.1 mmol/L [facility] Protein [Mass/Vol] 7.0 g/dL 6.3 - 8.0 g/dL [facility] Sodium [Moles/Vol] 137 mmol/L 136 - 144 mmol/L [facility] Urea nitrogen [Mass/Vol] 23 mg/dL High 7 - 21 mg/dL [facility] HbA1c (Bld)on 07-01-2022 Average glucose Estimated from glycated hemoglobin (Bld) [Mass/Vol] 171 mg/dL [facility] HbA1c (Bld) [Mass fraction] 7.6 % High 4.3 - 5.6 % [facility] LIPID PANEL, NONFASTINGon Cholesterol [Mass/Vol] 142 mg/dL <200 mg/dL [facility] HDL Cholesterol, Nonfasting 21 mg/dL Low >39 mg/dL [facility] LDL Cholesterol, Nonfasting [facility] LDL/HDL Ratio, Nonfasting [facility] Non HDL Cholesterol, Nonfasting 121 mg/dL <130 mg/dL [facility] Total Chol/HDL Ratio, Nonfasting 6.76 mg/dL High <5.10 mg/dL [facility] Triglycerides, Nonfasting 459 mg/dL High <150 mg/dL [facility] VLDL Cholesterol, Nonfasting [facility] TSH BLDon 07-01-2022 TSH Qn 2.450 m[IU]/L 0.270 - 4.200 mIU/L [facility] Vital Signs Date Time Vital Sign Value Performing Clinician Zandra kendall 10-08-2024 00:40-0400 Body temperature 98.8 [degF] Dr. Kierra Santiago MD Work Phone: [facility] 10-08-2024 00:40-0400 Diastolic blood pressure 43 mm[Hg] Dr. Kierra Santiago MD Work Phone: 8(715)[phone] [address] [place] [address] 10-08-2024 00:40-0400 Heart rate 53 /min Dr. Kierra Santiago MD Work Phone: 5(292)[phone] [address] [place] [address] 10-08-2024 00:40-0400 Respiratory rate 13 /min Dr. Kierra Santiago MD Work Phone: 0(562)[phone] [address] [place] [address] 10-08-2024 00:40-0400 SaO2% (BldA) [Mass fraction] 93 % Dr. Kierra Santiago MD Work Phone: 1(665)[phone] [address] [place] [address] 10-08-2024 00:40-0400 Systolic blood pressure 113 mm[Hg] Dr. Kierra Santiago MD Work Phone: 6(075)[phone] [address] [place] [address] 10-08-2024 00:00-0400 Inhaled oxygen flow rate 2 L/min Dr. Kierra Santiago MD Work Phone: 4(998)[phone] [address] [place] [address] 10-07-2024 21:35-0400 Body mass index (BMI) [Ratio] 27.5 kg/m2 Dr. Kierra Santiago MD Work Phone: 6(298)[phone] [address] [place] [address] 10-07-2024 21:35-0400 Body weight 70.[address] Kierra Santiago MD Work Phone: 6(823)[phone] [address] [place] [address] 10-07-2024 21:21-0400 Body height 160.[address] Kierra Santiago MD Work Phone: 2(149)[phone] [address] [place] [address] 08-22-2024 13:24-0400 Body temperature 96.9 [degF] Dr. Kierra Santiago MD Work Phone: 0(438)[phone] [address] [place] [address] 08-22-2024 13:24-0400 Diastolic blood pressure 63 mm[Hg] Dr. Kierra Santiago MD Work Phone: 6(062)772-330591 [address] [place] [address] 08-22-2024 13:24-0400 Heart rate 50 /min Dr. Kierra Santiago MD Work Phone: 1(825)932-782491 [address] [place] [address] 08-22-2024 13:24-0400 Respiratory rate 16 /min Dr. Kierra Santiago MD Work Phone: [facility] 08-22-2024 13:24-0400 SaO2% (BldA) [Mass fraction] 99 % Dr. Kierra Santiago MD Work Phone: [facility] 08-22-2024 13:24-0400 Systolic blood pressure 175 mm[Hg] Dr. Kierra Santiago MD Work Phone: [facility] 08-22-2024 12:11-0400 Body height 160.[address] Kierra Santiago MD Work Phone: [facility] 08-22-2024 12:11-0400 Body mass index (BMI) [Ratio] 26.2 kg/m2 Dr. Kierra Santiago MD Work Phone: [facility] 08-22-2024 12:11-0400 Body weight 67.[address] Kierra Santiago MD Work Phone: [facility] 07-17-2024 10:06-0400 Body mass index (BMI) [Ratio] 25.4 kg/m2 Anastasiia Colón LUDLOW MACHINE OPERATOR.CASING MATERIAL WEIGHER Work Phone: [facility] 07-17-2024 10:06-0400 Body weight 64 kg Anastasiia Colón LUDLOW MACHINE OPERATOR.CASING MATERIAL WEIGHER Work Phone: [facility] 07-17-2024 10:06-0400 Diastolic blood pressure 65 mm[Hg] Anastasiia Colón LUDLOW MACHINE OPERATOR.CASING MATERIAL WEIGHER Work Phone: [facility] 07-17-2024 10:06-0400 Heart rate 60 /min Anastasiia Colón LUDLOW MACHINE OPERATOR.CASING MATERIAL WEIGHER Work Phone: [facility] 07-17-2024 10:06-0400 Respiratory rate 16 /min Anastasiia Colón LUDLOW MACHINE OPERATOR.CASING MATERIAL WEIGHER Work Phone: [facility] 07-17-2024 10:06-0400 Systolic blood pressure 131 mm[Hg] Anastasiia Colón LUDLOW MACHINE OPERATOR.CASING MATERIAL WEIGHER Work Phone: [facility] 06-20-2024 09:55-0500 Body height 160.[address] Kierra Santiago MD Work Phone: 3([phone])194-321091 [address] [place] [address] 06-20-2024 09:55-0500 Body mass index (BMI) [Ratio] 24.7 kg/m2 Dr. Kierra Santiago MD Work Phone: 3(605)320-378891 [address] [place] [address] 06-20-2024 09:55-0500 Body weight 63.[address] Kierra Santiago MD Work Phone: 6(013)[phone] [address] [place] [address] 06-20-2024 09:55-0500 Diastolic blood pressure 63 mm[Hg] Dr. Kierra Santiago MD Work Phone: 1(661)175-965991 [address] [place] [address] 06-20-2024 09:55-0500 Heart rate 62 /min Dr. Kierra Santiago MD Work Phone: 5(821)383-642091 [address] [place] [address] 06-20-2024 09:55-0500 Respiratory rate 18 /min Dr. Kierra Santiago MD Work Phone: 7(559)428-090891 [address] [place] [address] 06-20-2024 09:55-0500 SaO2% (BldA) [Mass fraction] 98 % Dr. Kierra Santiago MD Work Phone: 7(571)547-663791 [address] [place] [address] 06-20-2024 09:55-0500 Systolic blood pressure 143 mm[Hg] Dr. Kierra Santiago MD Work Phone: 2(529)450-723991 [address] [place] [address] 06-12-2024 08:53-0500 Body temperature 97.4 [degF] Dr. Kierra Santiago MD Work Phone: 4(211)558-271691 [address] [place] [address] 06-12-2024 08:53-0500 Body weight 64.[address] Kierra Santiago MD Work Phone: 5(435)770-476591 [address] [place] [address] 06-12-2024 08:53-0500 Diastolic blood pressure 54 mm[Hg] Dr. Kierra Santiago MD Work Phone: 0(436)[phone] [address] [place] [address] 06-12-2024 08:53-0500 Heart rate 57 /min Dr. Kierra Santiago MD Work Phone: 6(959)[phone] [address] [place] [address] 06-12-2024 08:53-0500 Respiratory rate 14 /min Dr. Kierra Santiago MD Work Phone: [facility] 06-12-2024 08:53-0500 SaO2% (BldA) [Mass fraction] 97 % Dr. Kierra Santiago MD Work Phone: [facility] 06-12-2024 08:53-0500 Systolic blood pressure 128 mm[Hg] Dr. Kierra Santiago MD Work Phone: [facility] 06-04-2024 11:34-0500 Body height 158.8 cm Terrence Jane MD Work Phone: [facility] 06-04-2024 11:34-0500 Body mass index (BMI) [Ratio] 25.74 kg/m2 Terrence Jane MD Work Phone: [facility] 06-04-2024 11:34-0500 Body weight 64.86 kg Terrence Jane MD Work Phone: [facility] 06-04-2024 11:34-0500 Diastolic blood pressure 64 mm[Hg] Terrence Jane MD Work Phone: [facility] 06-04-2024 11:34-0500 Heart rate 63 /min Terrence Jane MD Work Phone: [facility] 06-04-2024 11:34-0500 Respiratory rate 12 /min Terrence Jane MD Work Phone: [facility] 06-04-2024 11:34-0500 SaO2% (BldA) [Mass fraction] 97 % Terrence Jane MD Work Phone: [facility] 06-04-2024 11:34-0500 Systolic blood pressure 142 mm[Hg] Terrence Jane MD Work Phone: [facility] 05-14-2024 13:32-0500 Body mass index (BMI) [Ratio] 25.7 kg/m2 Dr. Kierra Santiago MD Work Phone: [facility] 05-14-2024 13:32-0500 Body weight 65.[address] Kierra Santiago MD Work Phone: [facility] 05-14-2024 13:32-0500 Diastolic blood pressure 66 mm[Hg] Dr. Kierra Santiago MD Work Phone: [facility] 05-14-2024 13:32-0500 Heart rate 56 /min Dr. Kierra Santiago MD Work Phone: [facility] 05-14-2024 13:32-0500 Respiratory rate 18 /min Dr. Kierra Santiago MD Work Phone: [facility] 05-14-2024 13:32-0500 SaO2% (BldA) [Mass fraction] 97 % Dr. Kierra Santiago MD Work Phone: [facility] 05-14-2024 13:32-0500 Systolic blood pressure 146 mm[Hg] Dr. Kierra Santiago MD Work Phone: [facility] 05-08-2024 08:43-0500 Diastolic blood pressure 54 mm[Hg] Mary Kaynida Delgado DO Work Phone: [facility] 05-08-2024 08:43-0500 Heart rate 55 /min Mary Kay Delgado DO Work Phone: [facility] 05-08-2024 08:43-0500 SaO2% (BldA) [Mass fraction] 98 % Mary Kay Delgado DO Work Phone: [facility] 05-08-2024 08:43-0500 Systolic blood pressure 117 mm[Hg] Mary Kay Delgado DO Work Phone: [facility] 04-23-2024 14:34-0500 Body height 158.8 cm Terrence Jane MD Work Phone: [facility] 04-23-2024 14:34-0500 Body mass index (BMI) [Ratio] 25.74 kg/m2 Terrence Jane MD Work Phone: [facility] 04-23-2024 14:34-0500 Body weight 64.86 kg Terrence Jane MD Work Phone: [facility] 04-23-2024 14:34-0500 Diastolic blood pressure 56 mm[Hg] Terrence Jane MD Work Phone: [facility] 04-23-2024 14:34-0500 Heart rate 69 /min Terrence Jane MD Work Phone: [facility] 04-23-2024 14:34-0500 Respiratory rate 12 /min Terrence Jane MD Work Phone: [facility] 04-23-2024 14:34-0500 SaO2% (BldA) [Mass fraction] 100 % Terrence Jane MD Work Phone: [facility] 04-23-2024 14:34-0500 Systolic blood pressure 178 mm[Hg] Terrence Jane MD Work Phone: [facility] 04-17-2024 12:11-0500 Heart rate 61 /min Anastasiia Colón APRN.CASING MATERIAL WEIGHER Work Phone: [facility] 04-08-2024 10:49-0500 Body temperature 98.1 [degF] Dr. Kierra Santiago MD Work Phone: [facility] 04-08-2024 10:49-0500 Diastolic blood pressure 67 mm[Hg] Dr. Kierra Santiago MD Work Phone: [facility] 04-08-2024 10:49-0500 Heart rate 70 /min Dr. Kierra Santiago MD Work Phone: [facility] 04-08-2024 10:49-0500 Respiratory rate 18 /min Dr. Kierra Santiago MD Work Phone: [facility] 04-08-2024 10:49-0500 SaO2% (BldA) [Mass fraction] 96 % Dr. Kierra Santiago MD Work Phone: 6(153)[phone] [address] [place] [address] 04-08-2024 10:49-0500 Systolic blood pressure 132 mm[Hg] Dr. Kierra Santiago MD Work Phone: 1(304)[phone] [address] [place] [address] 04-08-2024 06:00-0500 Body mass index (BMI) [Ratio] 24.5 kg/m2 Dr. Kierra Santiago MD Work Phone: 0(601)[phone] [address] [place] [address] 04-08-2024 06:00-0500 Body weight 62.[address] Kierra Santiago MD Work Phone: 4(955)[phone] [address] [place] [address] 04-04-2024 10:00-0500 Body temperature 98.3 [degF] Dr. Kierra Santiago MD Work Phone: 0(767)[phone] [address] [place] [address] 04-04-2024 10:00-0500 Diastolic blood pressure 62 mm[Hg] Dr. Kierra Santiago MD Work Phone: 0(219)[phone] [address] [place] [address] 04-04-2024 10:00-0500 Heart rate 62 /min Dr. Kierra Santiago MD Work Phone: 3(899)[phone] [address] [place] [address] 04-04-2024 10:00-0500 Respiratory rate 16 /min Dr. Kierra Santiago MD Work Phone: 5(279)[phone] [address] [place] [address] 04-04-2024 10:00-0500 SaO2% (BldA) [Mass fraction] 94 % Dr. Kierra Santiago MD Work Phone: 8(599)[phone] [address] [place] [address] 04-04-2024 10:00-0500 Systolic blood pressure 143 mm[Hg] Dr. Kierra Santiago MD Work Phone: 2(578)087-326591 [address] [place] [address] 04-04-2024 08:05-0500 Body mass index (BMI) [Ratio] 24.4 kg/m2 Dr. Kierra Santiago MD Work Phone: 8(112)[phone] [address] [place] [address] 04-04-2024 08:05-0500 Body weight 62.[address] Kierra Santiago MD Work Phone: 6(752)912-792891 [address] [place] [address] 02-23-2024 09:22-0400 Body mass index (BMI) [Ratio] 24.96 kg/m2 Anastasiia Colón LUDLOW MACHINE OPERATOR.CASING MATERIAL WEIGHER Work Phone: [facility] 02-23-2024 09:22-0400 Body weight 62.9 kg Anastasiia Colón LUDLOW MACHINE OPERATOR.CASING MATERIAL WEIGHER Work Phone: [facility] 02-23-2024 09:22-0400 Diastolic blood pressure 65 mm[Hg] Anastasiia Colón LUDLOW MACHINE OPERATOR.CASING MATERIAL WEIGHER Work Phone: [facility] 02-23-2024 09:22-0400 Heart rate 77 /min Anastasiia Colón LUDLOW MACHINE OPERATOR.CASING MATERIAL WEIGHER Work Phone: [facility] 02-23-2024 09:22-0400 Respiratory rate 16 /min Anastasiia Colón LUDLOW MACHINE OPERATOR.CASING MATERIAL WEIGHER Work Phone: [facility] 02-23-2024 09:22-0400 Systolic blood pressure 96 mm[Hg] Anastasiia Colón LUDLOW MACHINE OPERATOR.CASING MATERIAL WEIGHER Work Phone: [facility] 01-11-2024 16:55-0400 Body mass index (BMI) [Ratio] 27.06 kg/m2 Kierra Santiago MD Work Phone: [facility] 01-11-2024 16:55-0400 Body temperature 99.5 [degF] Kierra Santiago MD Work Phone: [facility] 01-11-2024 16:55-0400 Body weight 68.2 kg Kierra Santiago MD Work Phone: [facility] 01-11-2024 16:55-0400 Diastolic blood pressure 68 mm[Hg] Kierra Santiago MD Work Phone: [facility] 01-11-2024 16:55-0400 Heart rate 58 /min Kierra Santiago MD Work Phone: [facility] 01-11-2024 16:55-0400 Respiratory rate 18 /min Kierra Santiago MD Work Phone: [facility] 01-11-2024 16:55-0400 SaO2% (BldA) [Mass fraction] 94 % Kierra Santiago MD Work Phone: [facility] 01-11-2024 16:55-0400 Systolic blood pressure 124 mm[Hg] Kierra Santiago MD Work Phone: [facility] 12-31-2023 11:51-0400 Body mass index (BMI) [Ratio] 28.09 kg/m2 Krislyn Aberegg PA Work Phone: [facility] 12-31-2023 11:51-0400 Body temperature 98.71 [degF] Krislyn Aberegg PA Work Phone: [facility] 12-31-2023 11:51-0400 Body weight 70.8 kg Krislyn Aberegg PA Work Phone: [facility] 12-31-2023 11:51-0400 Heart rate 62 /min Krislyn Aberegg PA Work Phone: [facility] 12-31-2023 11:51-0400 Respiratory rate 20 /min Krislyn Aberegg PA Work Phone: [facility] 12-31-2023 11:51-0400 SaO2% (BldA) [Mass fraction] 89 % Krislyn Aberegg PA Work Phone: [facility] 12-11-2023 09:58-0400 Body mass index (BMI) [Ratio] 27.54 kg/m2 Krislyn Aberegg PA Work Phone: [facility] 12-11-2023 09:58-0400 Body temperature 101.1 [degF] Krislyn Aberegg PA Work Phone: [facility] 12-11-2023 09:58-0400 Body weight 69.4 kg Krislyn Aberegg PA Work Phone: [facility] 12-11-2023 09:58-0400 Diastolic blood pressure 84 mm[Hg] Krislyn Aberegg PA Work Phone: [facility] 12-11-2023 09:58-0400 Heart rate 98 /min Krislyn Aberegg PA Work Phone: [facility] 12-11-2023 09:58-0400 Respiratory rate 18 /min Krislyn Aberegg PA Work Phone: [facility] 12-11-2023 09:58-0400 SaO2% (BldA) [Mass fraction] 95 % Krislyn Aberegg PA Work Phone: [facility] 12-11-2023 09:58-0400 Systolic blood pressure 126 mm[Hg] Krislyn Aberegg PA Work Phone: [facility] 11-18-2023 11:03-0400 Body height 158.8 cm Joelle Hritz LUDLOW MACHINE OPERATOR.PET AMBASSADOR Work Phone: [facility] 11-18-2023 11:03-0400 Body mass index (BMI) [Ratio] 26.82 kg/m2 Joelle Hritz LUDLOW MACHINE OPERATOR.PET AMBASSADOR Work Phone: [facility] 11-18-2023 11:03-0400 Body weight 67.59 kg Joelle Hritz LUDLOW MACHINE OPERATOR.PET AMBASSADOR Work Phone: [facility] 11-18-2023 11:03-0400 Diastolic blood pressure 78 mm[Hg] Joelle Hritz LUDLOW MACHINE OPERATOR.PET AMBASSADOR Work Phone: [facility] 11-18-2023 11:03-0400 Heart rate 102 /min Joelle Poonitz LUDLOW MACHINE OPERATOR.PET AMBASSADOR Work Phone: [facility] 11-18-2023 11:03-0400 Systolic blood pressure 132 mm[Hg] Joelle Hritz LUDLOW MACHINE OPERATOR.PET AMBASSADOR Work Phone: [facility] 11-14-2023 09:33-0400 Diastolic blood pressure 79 mm[Hg] Anastasiia Colón LUDLOW MACHINE OPERATOR.CASING MATERIAL WEIGHER Work Phone: [facility] 11-14-2023 09:33-0400 Systolic blood pressure 150 mm[Hg] Anastasiia Colón LUDLOW MACHINE OPERATOR.CASING MATERIAL WEIGHER Work Phone: [facility] 11-14-2023 09:31-0400 Body mass index (BMI) [Ratio] 26.28 kg/m2 Anastasiia Colón LUDLOW MACHINE OPERATOR.CASING MATERIAL WEIGHER Work Phone: [facility] 11-14-2023 09:31-0400 Body weight 66.22 kg Anastasiia Colón LUDLOW MACHINE OPERATOR.CASING MATERIAL WEIGHER Work Phone: [facility] 11-14-2023 09:31-0400 Heart rate 97 /min Anastasiia Colón LUDLOW MACHINE OPERATOR.CASING MATERIAL WEIGHER Work Phone: [facility] 11-14-2023 09:31-0400 Respiratory rate 16 /min Anastasiia Colón LUDLOW MACHINE OPERATOR.CASING MATERIAL WEIGHER Work Phone: [facility] 10-10-2023 11:44-0400 Body mass index (BMI) [Ratio] 25.38 kg/m2 Anastasiia Colón LUDLOW MACHINE OPERATOR.CASING MATERIAL WEIGHER Work Phone: [facility] 10-10-2023 11:44-0400 Body weight 63.96 kg Anastasiia Colón LUDLOW MACHINE OPERATOR.CASING MATERIAL WEIGHER Work Phone: [facility] 10-10-2023 11:44-0400 Diastolic blood pressure 71 mm[Hg] Anastasiia Colón LUDLOW MACHINE OPERATOR.CASING MATERIAL WEIGHER Work Phone: [facility] 10-10-2023 11:44-0400 Heart rate 118 /min Anastasiia Colón LUDLOW MACHINE OPERATOR.CASING MATERIAL WEIGHER Work Phone: [facility] 10-10-2023 11:44-0400 Respiratory rate 16 /min Anastasiia Colón LUDLOW MACHINE OPERATOR.CASING MATERIAL WEIGHER Work Phone: [facility] 10-10-2023 11:44-0400 Systolic blood pressure 106 mm[Hg] Anastasiia Colón LUDLOW MACHINE OPERATOR.CASING MATERIAL WEIGHER Work Phone: [facility] 10-04-2023 09:36-0400 Diastolic blood pressure 65 mm[Hg] Mary Kay Delgado DO Work Phone: [facility] 10-04-2023 09:36-0400 Systolic blood pressure 108 mm[Hg] Mary Kay Delgado DO Work Phone: [facility] 10-04-2023 09:30-0400 Heart rate 79 /min Mary Kay Delgado DO Work Phone: [facility] 10-04-2023 09:30-0400 SaO2% (BldA) [Mass fraction] 96 % Mary Kay Delgado DO Work Phone: [facility] 06-07-2023 09:02-0500 Body weight 68.95 kg Anastasiia Colón LUDLOW MACHINE OPERATOR.CASING MATERIAL WEIGHER Work Phone: [facility] 06-07-2023 09:02-0500 Diastolic blood pressure 74 mm[Hg] Anastasiia Colón LUDLOW MACHINE OPERATOR.CASING MATERIAL WEIGHER Work Phone: [facility] 06-07-2023 09:02-0500 Heart rate 97 /min Anastasiia Colón LUDLOW MACHINE OPERATOR.CASING MATERIAL WEIGHER Work Phone: [facility] 06-07-2023 09:02-0500 SaO2% (BldA) [Mass fraction] 96 % Anastasiia Colón LUDLOW MACHINE OPERATOR.CASING MATERIAL WEIGHER Work Phone: [facility] 06-07-2023 09:02-0500 Systolic blood pressure 126 mm[Hg] Anastasiia Colón LUDLOW MACHINE OPERATOR.CASING MATERIAL WEIGHER Work Phone: [facility] 03-15-2023 10:48-0500 Diastolic blood pressure 78 mm[Hg] Lelo Barrie LUDLOW MACHINE OPERATOR.PET AMBASSADOR Work Phone: [facility] 03-15-2023 10:48-0500 Heart rate 74 /min Lelo Barire LUDLOW MACHINE OPERATOR.PET AMBASSADOR Work Phone: [facility] 03-15-2023 10:48-0500 SaO2% (BldA) [Mass fraction] 97 % Lelo Barrie LUDLOW MACHINE OPERATOR.PET AMBASSADOR Work Phone: [facility] 03-15-2023 10:48-0500 Systolic blood pressure 134 mm[Hg] Lelo Barrie LUDLOW MACHINE OPERATOR.PET AMBASSADOR Work Phone: [facility] 02-04-2023 16:35-0400 Body weight 69.85 kg Kierra Santiago MD Work Phone: [facility] 02-04-2023 16:35-0400 Diastolic blood pressure 70 mm[Hg] Kierra Santiago MD Work Phone: [facility] 02-04-2023 16:35-0400 Heart rate 52 /min Kierra Santiago MD Work Phone: [facility] 02-04-2023 16:35-0400 SaO2% (BldA) [Mass fraction] 97 % Kierra Santiago MD Work Phone: [facility] 02-04-2023 16:35-0400 Systolic blood pressure 134 mm[Hg] Kierra Santiago MD Work Phone: [facility] 12-22-2022 10:28-0400 Body weight 69.85 kg Sheryl Eric LUDLOW MACHINE OPERATOR.PET AMBASSADOR Work Phone: [facility] 12-22-2022 10:28-0400 Diastolic blood pressure 60 mm[Hg] Sheryl Eric LUDLOW MACHINE OPERATOR.PET AMBASSADOR Work Phone: [facility] 12-22-2022 10:28-0400 Heart rate 81 /min Sheryl Eric LUDLOW MACHINE OPERATOR.PET AMBASSADOR Work Phone: [facility] 12-22-2022 10:28-0400 SaO2% (BldA) [Mass fraction] 96 % Sheryl Eric LUDLOW MACHINE OPERATOR.PET AMBASSADOR Work Phone: [facility] 12-22-2022 10:28-0400 Systolic blood pressure 124 mm[Hg] Sheryl Eric LUDLOW MACHINE OPERATOR.PET AMBASSADOR Work Phone: [facility] 12-01-2022 11:00-0400 Diastolic blood pressure 75 mm[Hg] Kailee Johnson MD Work Phone: [facility] 12-01-2022 11:00-0400 Heart rate 75 /min Kailee Johnson MD Work Phone: [facility] 12-01-2022 11:00-0400 SaO2% (BldA) [Mass fraction] 97 % Kailee Johnson MD Work Phone: [facility] 12-01-2022 11:00-0400 Systolic blood pressure 146 mm[Hg] Kailee Johnson MD Work Phone: [facility] 10-12-2022 11:09-0400 Diastolic blood pressure 78 mm[Hg] Mary Kay Delgado DO Work Phone: [facility] 10-12-2022 11:09-0400 Heart rate 79 /min Mary Kay Delgado DO Work Phone: [facility] 10-12-2022 11:09-0400 SaO2% (BldA) [Mass fraction] 96 % Mary Kay Delgado DO Work Phone: [facility] 10-12-2022 11:09-0400 Systolic blood pressure 124 mm[Hg] Mary Kay Delgado DO Work Phone: [facility] 08-02-2022 09:38-0400 Body weight 71.67 kg Anastasiia Colón LUDLOW MACHINE OPERATOR.CASING MATERIAL WEIGHER Work Phone: [facility] 08-02-2022 09:38-0400 Diastolic blood pressure 62 mm[Hg] Anastasiia Colón LUDLOW MACHINE OPERATOR.CASING MATERIAL WEIGHER Work Phone: [facility] 08-02-2022 09:38-0400 Heart rate 76 /min Anastasiia Colón LUDLOW MACHINE OPERATOR.CASING MATERIAL WEIGHER Work Phone: [facility] 08-02-2022 09:38-0400 Respiratory rate 16 /min Anastasiia Colón LUDLOW MACHINE OPERATOR.CASING MATERIAL WEIGHER Work Phone: [facility] 08-02-2022 09:38-0400 Systolic blood pressure 130 mm[Hg] Anastasiia Colón LUDLOW MACHINE OPERATOR.CASING MATERIAL WEIGHER Work Phone: [facility] 07-01-2022 08:21-0500 Body height 158.8 cm Anastasiia Colón LUDLOW MACHINE OPERATOR.CASING MATERIAL WEIGHER Work Phone: [facility] 07-01-2022 08:21-0500 Body weight 71.67 kg Anastasiia Colón LUDLOW MACHINE OPERATOR.CASING MATERIAL WEIGHER Work Phone: [facility] 07-01-2022 08:21-0500 Diastolic blood pressure 66 mm[Hg] Anastasiia Colón LUDLOW MACHINE OPERATOR.CASING MATERIAL WEIGHER Work Phone: [facility] 07-01-2022 08:21-0500 Heart rate 67 /min Anastasiia Colón LUDLOW MACHINE OPERATOR.CASING MATERIAL WEIGHER Work Phone: [facility] 07-01-2022 08:21-0500 Respiratory rate 16 /min [facility] LUDLOW MACHINE OPERATOR.CASING MATERIAL WEIGHER Work Phone: [facility] 07-01-2022 08:21-0500 SaO2% (BldA) [Mass fraction] 96 % [facility] LUDLOW MACHINE OPERATOR.CASING MATERIAL WEIGHER Work Phone: [facility] 07-01-2022 08:21-0500 Systolic blood pressure 118 mm[Hg] Anastasiia Colón LUDLOW MACHINE OPERATOR.CASING MATERIAL WEIGHER Work Phone: [facility] Encounters Encounter Date Encounter Type Care Provider Facility Start: 10-10-2024 ambulatory Kierra Santiago Facilit y:[facility] Start: 10-07-2024 ambulatory [facility] [place] [place] Start: 10-07-2024 Evaluation and manag ement of inpatient Dr. Kelsie Muñoz MD -Progressive Care Unit Work Phone: Start: 10-06-2024 Encounter for prepro cedural laboratory examination Laura Crowell [facility] Start: 10-02-[address] Sury Blanca DPM -Cardiovascular Services Work Phone: Start: 10-02-2024 ambulatory Kierra Santiago Facilit y:[facility] Start: 10-01-2024 End: 10-01-[address] Kierra Santiago MD Work Phone: [facility] Work Phone: Start: 10-01-2024 End: 10-01-2024 Patient encounter procedure Laura Crowell PA -Cat Scan WC H Work Phone: Start: 10-01-2024 End: 10-01-2024 ambulatory Kierra Santiago Facility:[facility] Start: 09-11-2024 End: 09-11-2024 Anticoagulant drug monitoring [facility] Work Phone: [facility] Comment on above: Factor V deficiency (HCC) (Primary Dx) Start: 09-11-2024 End: 09-11-2024 ambulatory KIERRA SANTIAGO Facility:[facility] Start: 09-06-2024 End: 09-29-2024 Discharged Recurring Self Referred -Nutritional Servic es Work Phone: Start: 09-06-2024 End: 09-29-[address] Kierra Santiago MD Work Phone: [facility] Work Phone: Start: 08-28-2024 ambulatory Kierra Santiago Facilit y:[facility] Start: 08-28-2024 Non-patient / Non-visit Dr. Shaan hung MD -[facility] Start: 08-28-2024 End: 08-28-2024 Patient encounter procedure Laura Crowell PA -Cardiovascu lar Services Work Phone: Start: 08-28-2024 End: 08-28-2024 ambulatory Laura Crowell Facility:[facility] Start: 08-22-2024 ambulatory Kierra Valadezampas Facilit y:[facility] Start: 08-22-2024 Non-patient / Non-visit Robb Cummins nd, DO -[facility] Start: 08-22-2024 End: 08-22-2024 Admission to same day surgery center Robb Giron DO -Endoscopy Work Phone: Start: 08-22-2024 End: 08-22-2024 ambulatory Kierra Santiago Facility:[facility] Start: 08-21-2024 End: 08-21-2024 Anticoagulant drug monitoring [facility] Work Phone: [facility] Comment on above: Factor V deficiency (HCC) (Primary Dx) Start: 08-21-2024 End: 08-21-2024 ambulatory KIERRA SANTIAGO Facility:[facility] Start: 08-15-2024 End: 08-15-[address] Kierra Santiago MD Work Phone: [facility] Work Phone: Start: 08-15-2024 End: 08-15-2024 Patient encounter procedure Dominick Harrell NP-C -Laboratory Work Phone: Start: 08-15-2024 End: 08-15-2024 ambulatory Kierra Santiago Facility:[facility] Start: 08-06-2024 End: 08-07-2024 Refill Kierra Santiago MD Work Phone: [facility] Comment on above: Refill Request Start: 07-31-2024 End: 07-31-2024 Telephone encounter [facility] Comment on above: Orders (poc protime) Start: 07-31-2024 End: 07-31-2024 ambulatory KIERRA Irma SANTIAGO Facility:[facility] Start: 07-31-2024 End: 07-31-2024 Anticoagulant drug monitoring [facility] Work Phone: [facility] Comment on above: Factor V deficiency (HCC) (Primary Dx) Start: 07-25-2024 End: 07-25-[address] Kierra Santiago MD Work Phone: [facility] Work Phone: Start: 07-25-2024 End: 07-25-2024 Patient encounter procedure Dominick DENTONC -Laboratory Work Phone: Start: 07-25-2024 End: 07-25-2024 [facility] Start: 07-17-2024 End: 07-17-2024 [facility]: [facility] Comment on above: Factor V deficiency (HCC) (Primary Dx) Refill Request Start: 07-17-2024 End: 07-17-2024 [facility] Start: 07-17-2024 End: 07-17-2024 Office outpatient visit 25 minutes Anastasiia Colón APRN.CASING MATERIAL WEIGHER Work Phone: [facility] Comment on above: 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, without long-term current use of insulin (HCC) (Primary Dx); Hypokalemia; Other acute sinusitis; Decreased hearing of both ears; Subclinical hypothyroidism; History of anemia; S/P transmetatarsal amputation of foot, right (HCC); Stage 3b chronic kidney disease (HCC) Start: 07-11-2024 End: 07-11-2024 Home visit Kierra Santiago MD Work Phone: [facility] Comment on above: 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 Kierra Santiago MD Work Phone: [facility] Work Phone: Start: 07-10-2024 End: 07-10-2024 Patient encounter procedure Dominick YUN -Laboratory Work Phone: Start: 07-10-2024 End: 07-10-2024 ambulatory Kierra D Tal[place] Facility:[facility] Start: 07-05-2024 End: 07-05-2024 [facility] Work [facility]: [facility] Comment on above: Factor V deficiency (HCC) (Primary Dx) Start: 07-05-2024 End: 07-05-2024 ambulatory KIERRA D TALAMPAS Facility:[facility] Start: 06-28-2024 End: 06-28-2024 ambulatory KIERRA D TALAMPAS Facility:[facility] Start: 06-28-2024 End: 06-29-2024 Anticoagulant drug monitoring [facility] Comment on above: Factor V deficiency (HCC) (Primary Dx) Refill Request Start: 06-20-2024 End: 06-20-2024 ambulatory Kierra D [place] [place] Start: 06-20-2024 End: 06-20-2024 Patient encounter procedure Dominick YUN -[facility] Work Phone: Start: 06-19-2024 End: 06-19-2024 Patient encounter procedure Ese SEGURA -[facility] Work Phone: Start: 06-19-2024 End: 06-20-2024 ambulatory Ese Hillman Facility:[facility] Start: 06-14-2024 End: 06-14-2024 Anticoagulant drug monitoring [facility] Work Phone: [facility] Comment on above: Factor V deficiency (HCC) (Primary Dx) Start: 06-14-2024 End: 06-14-2024 ambulatory KIERRA SANTIAGO Facility:[facility] Start: 06-13-2024 End: 06-13-2024 Patient encounter procedure Laura SEGURA -Laboratory, Specimen Work Phone: Start: 06-12-2024 End: 06-12-2024 Patient encounter procedure Laura SEGURA -[facility] Work Phone: Start: 06-12-2024 End: 06-13-2024 ambulatory Laura Crowell Facility:[facility] Start: 06-04-2024 End: 06-04-2024 ambulatory TERRENCE JANE Facility:[facility] Start: 06-04-2024 End: 06-04-2024 Patient [...] above: Appointment Start: 05-28-2024 ambulatory Shaan Rojas Facility:[facility] Start: 05-28-2024 Non-patient / Non-visit Dr. Shaan hung MD -[facility] Start: 05-28-2024 End: 05-28-[address] Shaan Rojas MD -Cardiovascu lar Services Work Phone: Start: 05-28-2024 End: 05-28-2024 ambulatory Roly Herrera Facility:[facility] Start: 05-23-2024 End: 05-23-2024 Telephone encounter Kierra Santiago MD Work Phone: [facility] Comment on above: Anticoagulation Start: 05-21-2024 End: 05-21-2024 Telephone encounter Terrence Jane MD Work Phone: Cardiology Comment on above: Results Start: 05-16-2024 End: 05-18-2024 Telephone encounter Kierra Santiago MD Work Phone: [facility] Comment on above: Patient Update; Anti coagulation Start: 05-14-2024 End: 05-14-[address] Roly Herrera MD -[facility] Work Phone: Start: 05-14-2024 End: 05-16-2024 Refill Kierra Santiago MD Work Phone: [facility] Comment on above: Refill Request Symptoms Start: 05-12-2024 End: 05-12-2024 ambulatory Nallely An RN NURSE DREDGE PUMP OPERATOR Comment on above: Hypertension Start: 05-09-2024 End: 05-09-2024 Telephone encounter Kierra Santiago MD Work Phone: [facility] Comment on above: Patient Update; Anti coagulation Start: 05-08-2024 End: 05-08-2024 Patient encounter procedure Mary Kay Delgado DO Work Phone: Vascular Surgery Comment on above: Occlusion and stenos is of unspecified carotid artery (Primary Dx) Start: 05-08-2024 End: 05-08-2024 ambulatory MARY KAY DELGADO Facility:[facility] Start: 05-03-2024 End: 05-19-2024 Telephone encounter Kierra Santiago MD Work Phone: [facility] Comment on above: Home Care Management Refill Request (SEE RX NOTES) Start: 05-01-2024 End: 05-03-2024 Telephone encounter Kierra Santiago MD Work Phone: [facility] Comment on above: Anticoagulation Start: 04-30-2024 End: [...] Start: 04-23-2024 End: 04-23-2024 ambulatory KIERRA SANTIAGO Facility:[facility] Start: 04-23-2024 End: 04-24-2024 Telephone encounter Kierra Santiago MD Work Phone: [facility] Comment on above: [facility] - INR message Start: 04-18-2024 End: 04-20-2024 Telephone encounter Kierra Santiago MD Work Phone: [facility] Comment on above: Anticoagulation Start: 04-17-2024 End: 04-17-2024 ambulatory KIERRA SANTIAGO Facility:[facility] Start: 04-17-2024 End: 04-17-2024 Office [...] [facility] Comment on above: Anticoagulation Physical [facility] Start: 04-13-2024 End: 04-13-2024 Telephone encounter Kierra Santiago MD Work Phone: [facility] Comment on above: Orders Start: 04-11-2024 End: 04-12-2024 Telephone encounter Kierra Santiago MD Work Phone: [facility] Comment on above: Question Start: 04-09-2024 End: 04-09-2024 Telephone encounter Kierra Santiago MD Work Phone: [facility] Comment on above: Home Care Management Start: 04-09-2024 End: 04-09-2024 ambulatory KIERRA SANTIAGO Facility:[facility] Start: 04-06-2024 End: 04-10-2024 ambulatory Kierra Santiago MD Work Phone: [facility] Start: 04-05-2024 End: 04-05-2024 Telephone encounter Kierra Santiago MD Work Phone: [facility] Comment on above: Home Health Orders Start: 04-05-2024 Non-patient / Non-visit Laura Crowell [facility] Start: 04-05-2024 ambulatory Laura Crowell Facility:[facility] Start: 04-04-2024 ambulatory Robb Giron Facility :[facility] Start: 04-04-2024 Non-patient / Non-visit Robb Cummins nd DO -[facility] Start: 04-04-2024 End: 04-04-2024 Admission to same day surgery center Robb Giron DO -Endoscopy Work Phone: Start: 04-04-2024 End: 04-04-2024 ambulatory Robb Giron Facility:[facility] Start: 04-02-2024 Non-patient / Non-visit Robb Cummins nd DO -[facility] Start: 03-27-2024 Non-patient / Non-visit Laura Crowell [facility] Start: 03-23-2024 Non-patient / Non-visit Laura Crowell [facility] Start: 03-19-2024 ambulatory Laura Socrates Facility:[facility] Start: 03-19-2024 End: 04-08-2024 Evaluation and management of inpatient Dr. Jason Smith MD -Transitional Care Unit Start: 03-13-2024 End: 03-13-2024 ambulatory Alfredoleigh Celaya [place] [place]: 03-12-2024 ambulatory Kierra D Talampas Facilit y:[facility] Start: 03-09-2024 ambulatory Kierra D Talampas Facilit y:[facility] Start: 03-08-2024 ambulatory Kierra D Talampas [place] [place] Start: 03-08-2024 ambulatory Suresh girish Raúl [place] [place] Start: 03-08-2024 End: 03-19-2024 Evaluation and management of inpatient Suresh stout Raúl Facility:[facility] Start: 03-07-2024 End: 03-09-2024 Telephone encounter Kierra Santiago MD Work Phone: [facility] [place] Comment on above: Patient Update Start: 03-01-2024 End: 03-01-2024 Anticoagulant drug monitoring [facility] Phone[facility] [place] Comment on above: Factor V deficiency (HCC) (Primary Dx) Start: 03-01-2024 End: 03-01-2024 ambulatory KIERRA D TALAMPAS Facility:[facility] Start: 03-01-2024 End: 03-01-2024 ambulatory Kierra D Talampas Facility:[facility] Start: 02-29-2024 End: 03-03-2024 Telephone encounter Kierra Santiago MD Work Phone: [facility] [place] Comment on above: Patient Update Start: 02-27-2024 End: 02-27-2024 ambulatory KIERRA D TALAMPAS Facility:[facility] Start: 02-27-2024 End: 02-27-2024 Anticoagulant drug monitoring [facility] Work Phone: [facility] [place] Comment on above: Factor V deficiency (HCC) (Primary Dx) Start: 02-24-2024 End: 02-24-2024 Telephone encounter Anastasiia Colón APRN.CASING MATERIAL WEIGHER Work Phone: [facility] [place] Start: 02-23-2024 End: 02-23-2024 Telephone encounter Anastasiia Colón APRN.CASING MATERIAL WEIGHER Work Phone: [facility] [place] Comment on above: Anticoagulation Start: 02-23-2024 End: 02-23-2024 ambulatory KIERRA SANTIAGO Facility:[facility] Start: 02-23-2024 End: 02-23-2024 Office outpatient visit 25 minutes Anastasiia Colón APRN.CASING MATERIAL WEIGHER Work Phone: [facility] [place] Comment on above: Critical limb ischem ia [...] (HCC) Start: 02-23-2024 End: 02-23-2024 ambulatory KIERRA SANTIAGO Facility:[facility] Start: 02-14-2024 End: 02-14-2024 ambulatory Kierra Santiago [place] [place] Start: 02-13-2024 End: 02-13-2024 Telephone encounter Kierra Santiago MD Work Phone: [facility] [place] Comment on above: [facility] PT POC Start: 02-09-2024 End: 02-13-2024 Telephone encounter Kierra Santiago MD Work Phone: [facility] [place] Comment on above: Home Health Point of Care Results Start: 02-08-2024 ambulatory Kierra Santiago Facilit y:[facility] Start: 02-08-2024 End: 02-08-2024 Telephone encounter Kierra Santiago MD Work Phone: [facility] [place] Comment on above: Home Health Orders Start: 02-08-2024 End: 02-08-2024 ambulatory Kierra Santiago Facility:[facility] Start: 01-27-2024 End: 02-08-2024 Evaluation and management of inpatient Kierra Santiago Facility:[facility] Start: 01-20-2024 End: 01-20-2024 ambulatory Roly Herrera [place] [place] Start: 01-18-2024 End: 01-27-2024 ambulatory Kierra Santiago [place] [place] Start: 01-18-2024 End: 01-27-2024 Evaluation and management of inpatient Kierra Santiago Facility:[facility] Start: 01-14-2024 End: 01-14-2024 Patient Outreach Nancy Albert RN Work Phone: [employer] Comment on above: Transition Of Care S tarted Weekly phone contact (Recurring) for Transitional Care Management Start: 01-13-2024 End: 01-13-2024 Emergency department patient visit Kierra Santiago Facility:[facility] Start: 01-13-2024 End: 01-13-2024 [facility] Start: 01-13-2024 End: 01-13-2024 Patient encounter procedure Nataliia Rehman APRN.DAMASO Work Phone: [facility] Comment on above: Pain (Primary Dx) Start: 01-11-2024 End: 01-11-2024 Transitional care manage srvc 14 day discharge Kierra Santiago MD Work Phone: [facility] [place] Comment on above: Acute on chronic con gestive heart failure, unspecified heart failure type (HCC) (Primary Dx); Type 2 diabetes mellitus with diabetic polyneuropathy, without long-term current use of insulin (HCC); Hypokalemia; Leg cramp; Ulcer of right foot, limited to breakdown of skin (HCC); Callus of foot; Dependent rubor Start: 01-11-2024 End: 01-11-2024 ambulatory KIERRA SANTIAGO Facility:[facility] Start: 01-06-2024 End: 01-06-2024 Patient Outreach Nancy Albert RN Work Phone: [employer] T[employer] Management Comment on above: Initial phone contac t for Transitional Care Management Start: 01-05-2024 End: 01-05-2024 ambulatory KIERRA D TALAMPAS Facility:[facility] Start: 01-05-2024 End: 01-05-2024 Anticoagulant drug monitoring Anticoag [facility] Work Phone: [facility] Comment on above: Factor V deficiency (HCC) (Primary Dx) Start: 01-02-2024 ambulatory Kierra D Talampas Facilit y:[facility] Start: 12-31-2023 ambulatory Kierra D Talampas Facilit y:[facility] Start: 12-31-2023 End: 01-03-2024 Evaluation and management of inpatient Jaimie Vargas Facility:[facility] Start: 12-31-2023 End: 12-31-2023 ambulatory KIERRA D TALAMPAS Facility:[facility] Start: 12-31-2023 End: 12-31-2023 Patient encounter procedure Saray SEGURA Work Phone: [facility] Comment on above: Hypoxia (Primary Dx) Start: 12-30-2023 End: 12-30-2023 Refill Kierra Santiago MD Work Phone: [facility] [place] Comment on above: Refill Request Start: 12-27-2023 End: 12-27-2023 Telephone encounter Kierra Santiago MD Work Phone: [facility] [place] Comment on above: Labs needed? Start: 12-27-2023 End: 12-27-2023 ambulatory KIERRA D TALAMPAS Facility:[facility] Start: 12-12-2023 Telephone encounter Saray SEGURA Work Phone: [facility] Comment on above: Results Start: 12-12-2023 End: 12-12-2023 ambulatory SARAY ACOSTA Facility:[facility] Start: 12-12-2023 End: 12-12-2023 Subsequent hospital visit by physician Kiley [facility] [place] Work Phone: Radiology Comment on above: Acute cough [R05.1] Start: 12-11-2023 End: 12-11-2023 ambulatory KIERRA D TALAMPAS Facility:[facility] Start: 12-11-2023 End: 12-11-2023 Patient encounter procedure Saray SEGURA Work Phone: [facility] Comment on above: Acute cough (Primary Dx); URI, acute Start: 12-08-2023 End: 12-08-2023 [facility] Facility:[facility] Start: 12-08-2023 End: 12-08-2023 [facility] drug [facility] Work Phone: [facility] [place] Comment on above: Factor V deficiency (HCC) (Primary Dx) Start: 11-30-2023 End: 11-30-2023 [facility] Facility:[facility] Start: 11-30-2023 End: 11-30-2023 Subsequent hospital visit by physician [facility] Work Phone: Radiology Comment on above: Elevated alanine ami notransferase (ALT) level [R74.01] Start: 11-18-2023 End: 11-18-2023 [facility] Facility:[facility] Start: 11-18-2023 End: 11-18-2023 Office outpatient new 30 minutes Joelle Barreto LUDLOW MACHINE OPERATOR.PET AMBASSADOR Work Phone: [facility] [place] Comment on above: Elevated alanine ami notransferase (ALT) level (Primary Dx) Start: 11-14-2023 End: 11-14-2023 [facility] Facility:[facility] Start: 11-14-2023 End: 11-14-2023 Patient encounter procedure [facility] Work Phone: Cardiology Comment on above: Chest pain, unspecif ied type Start: 11-14-2023 End: 11-14-2023 [facility] Facility:[facility] Start: 11-14-2023 End: 11-14-2023 Office outpatient visit 25 minutes Anastasiia Colón LUDLOW MACHINE OPERATOR.CASING MATERIAL WEIGHER Work Phone: [facility] Medicine [place] Comment on above: Chest pain, unspecif ied type (Primary Dx); Encounter for immunization; Type 2 diabetes mellitus with hyperglycemia, without long-term current use of insulin (HCC); Lung nodules; Transaminitis; Factor 5 Leiden mutation, heterozygous (HCC) Start: 11-10-2023 End: 11-10-2023 Anticoagulant drug monitoring Anticoag [facility] Work Phone: [facility] [place] Comment on above: Factor V deficiency (HCC) (Primary Dx) Start: 11-10-2023 End: 11-10-2023 ambulatory ANASTASIIA COLÓN Facility:[facility] Start: 11-08-2023 ambulatory Nurse Card Adm in [facility] Work Phone: Cardiology Comment on above: Stress Test Instruct ions for 11/14/23 Start: 11-08-2023 E-mail encounter etienne crow caregiver Nurse Card Admin [facility] Work Phone: Cardiology Start: 11-07-2023 Telephone encounter Anastasiia vigil LUDLOW MACHINE OPERATOR.CASING MATERIAL WEIGHER Work Phone: [facility] [place] Comment on above: Results Start: 11-06-2023 Orders Only Anastasiia Colón LUDLOW MACHINE OPERATOR.CASING MATERIAL WEIGHER Work Phone: [facility] [place] Comment on above: 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, without long-term current use of insulin (HCC) (Primary Dx) Start: 11-04-2023 Refill Kierra adler MD Work Phone: [facility] [place] Comment on above: Refill Request Start: 10-24-2023 End: 10-24-2023 ambulatory KIERRA SANTIAGO Facility:[facility] Start: 10-24-2023 End: 10-24-2023 Subsequent hospital visit by physician [facility] ([facility]-Stat) Work Phone: Cat Scan Comment on above: Lung nodules [R91.8] Start: 10-17-2023 End: 10-17-2023 ambulatory KIERRA SANTIAGO Facility:[facility] Start: 10-13-2023 End: 10-13-2023 ambulatory KIERRA SANTIAGO Facility:[facility] Start: 10-13-2023 End: 10-13-2023 Anticoagulant drug monitoring [facility] Work Phone: [facility] [place] Comment on above: Factor V deficiency (HCC) (Primary Dx) Start: 10-12-2023 End: 10-12-2023 Nursing evaluation of patient and report Suresh Varela RN Work Phone: Endocrinology Comment on above: Uncontrolled type 2 diabetes mellitus with hyperglycemia (HCC) Start: 10-12-2023 End: 10-12-2023 ambulatory KIERRA D TALAMPAS Facility:[facility] Start: 10-11-2023 Telephone encounter Joshua Koch MD Work Phone: [facility] [place] Comment on above: high blood sugars Patient Update Start: 10-10-2023 End: 10-10-2023 ambulatory KIERRA D TALAMPAS Facility:[facility] Start: 10-10-2023 End: 10-10-2023 ambulatory KIERRA D TALAMPAS Facility:[facility] Start: 10-10-2023 End: 10-10-2023 Office outpatient visit 25 minutes Anastasiia Colón APRN.CNS Work Phone: [facility] [place] Comment on above: Chest pain, unspecif ied type (Primary Dx); Lung nodules; Transaminitis; Atrial fibrillation, unspecified type (HCC); Type 2 diabetes mellitus with hyperglycemia, without long-term current use of insulin (HCC); Factor 5 Leiden mutation, heterozygous (HCC); Mid back pain on left side Start: 10-05-2023 Refill Kierra adler MD Work Phone: [facility] [place] Comment on above: Refill Request Start: 10-04-2023 End: 10-04-2023 ambulatory KIERRA D TALAMPAS Facility:[facility] Start: 10-04-2023 End: 10-04-2023 Patient encounter procedure Mary Kay Delgado DO Work Phone: Vascular Surgery Comment on above: Bilateral carotid ar jaime stenosis (Primary Dx) Start: 09-29-2023 End: 09-29-2023 ambulatory KIERRA D TALAMPAS Facility:[facility] Start: 09-23-2023 End: 09-23-2023 Patient encounter procedure Nataliia Ori CAMPBELL.PET AMBASSADOR Work Phone: [facility] Comment on above: Left arm numbness (P rimary Dx) Start: 09-23-2023 End: 09-23-2023 ambulatory KIERRA D TALAMPAS Facility:[facility] Start: 09-15-2023 End: 09-15-2023 [facility] Work Phone: [facility] [place] Comment on above: Factor V deficiency (HCC) (Primary Dx) Start: 09-15-2023 End: 09-15-2023 ambulatory [facility] Facility:[facility] Start: 08-18-2023 End: 08-18-2023 [facility]tico[facility] drug [facility] Work Phone: [facility] [place] Comment on above: Factor V deficiency (HCC) (Primary Dx) Start: 07-21-2023 Telephone encounter Kierra angulo MD Work Phone: [facility] [place] Comment on above: Orders (protime) Start: 07-21-2023 End: 07-21-2023 [facility]: [facility] [place] Comment on above: Factor V deficiency (HCC) (Primary Dx) Start: 07-14-2023 Refill Kierra adler MD Work Phone: [facility] [place] Comment on above: Refill Request Start: 06-30-2023 End: 06-30-2023 [facility] Work Phone: [facility] [place] Comment on above: Factor V deficiency (HCC) (Primary Dx) Start: 06-16-2023 End: 06-16-2023 [facility] Work [facility]: [facility] [place] Comment on above: Factor V deficiency (HCC) (Primary Dx) Start: 06-07-2023 End: 06-07-2023 Office outpatient visit 25 minutes Anastasiia Colón APRN.CASING MATERIAL WEIGHER Work Phone: Internal Medicine [place] Comment on [...] Start: 06-02-2023 End: 06-02-2023 Anticoagulant drug monitoring [facility] Work Phone: [facility] [place] Comment on above: Factor V deficiency (HCC) (Primary Dx) Start: 05-02-2023 ambulatory Alice Mcneill RN NURSE O N CALL Comment on above: Pain, Sinus Start: 03-30-2023 End: 03-30-2023 Anticoagulant drug monitoring [facility] Work Phone: [facility] [place] Comment on above: Factor V deficiency (HCC) (Primary Dx) Start: 03-15-2023 End: 03-15-2023 Office outpatient visit 25 minutes Lelo Sood APRN.PET AMBASSADOR Work Phone: Vascular Surgery Comment on above: Bilateral carotid ar jaime stenosis (Primary Dx); Primary hypertension; Elevated HDL; Factor 5 Leiden mutation, heterozygous (HCC) Start: 02-24-2023 End: 02-24-2023 Anticoagulant drug monitoring [facility] Work [facility]: [facility] [place] Comment on above: Factor V deficiency (HCC) (Primary Dx) Start: 02-15-2023 Telephone encounter Kierra angulo MD Work Phone: [facility] [place] Comment on above: Info for diabetic sh oes Start: 02-04-2023 End: 02-04-2023 Office outpatient visit 40 minutes Kierra Santiago MD Work Phone: [facility] [place] Comment on above: 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, without long-term current use of insulin (HCC) (Primary Dx); Stenosis of carotid artery, unspecified laterality; History of carotid endarterectomy; Primary hypertension; Factor V deficiency (HCC); Encounter for long-term current use of medication; Mixed hyperlipidemia; Chronic cough; Need for influenza vaccination; Encounter for immunization Start: 01-27-2023 End: 01-27-2023 Anticoagulant drug monitoring [facility] Work Phone: [facility] [place] Comment on above: Factor V deficiency (HCC) (Primary Dx) Start: 01-20-2023 End: 01-20-2023 Anticoagulant drug monitoring [facility] Work Phone: [facility] [place] Comment on above: Factor V deficiency (HCC) (Primary Dx) Start: 01-05-2023 Refill Kierra adler MD Work Phone: [facility] [place] Comment on above: Refill Request Start: 12-22-2022 End: 12-22-2022 Patient encounter procedure Sheryl Reyes APRN.CNP Work Phone: [facility] [place] Comment on above: Stress and adjustmen t reaction (Primary Dx); Sleep disturbance; Type 2 diabetes mellitus with diabetic polyneuropathy, without long-term current use of insulin (HCC) Start: 12-20-2022 Telephone encounter Kierra angulo MD Work Phone: [facility] [place] Comment on above: Patient Question (He r 3 mo appointment) Refill Request Start: 12-16-2022 End: 12-16-2022 Anticoagulant drug monitoring [facility] Work [facility] [place] Comment on above: Factor V deficiency (HCC) (Primary Dx) Start: 12-02-2022 ambulatory Kierra adler MD Work Phone: [facility] Comment on above: Allied Health Visit (Medication Adherence Outreach/) Start: 12-01-2022 End: 12-01-2022 Patient encounter procedure Kailee Johnson MD Work Phone: Vascular Surgery Comment on above: Carotid stenosis, as ymptomatic, bilateral (Primary Dx) Start: 11-22-2022 End: 11-22-2022 Subsequent hospital visit by physician [facility] ([facility]) Work Phone: Cat Scan Comment on above: Lung nodules [R91.8] Start: 11-18-2022 End: 11-18-2022 Anticoagulant drug monitoring [facility] Work Phone: [facility] [place] Comment on above: Factor V deficiency (HCC) (Primary Dx) Start: 10-28-2022 End: 10-28-2022 Anticoagulant drug monitoring [facility] Work Phone: [facility] [place] Comment on above: Factor V deficiency (HCC) Start: 10-12-2022 End: 10-12-2022 Patient encounter procedure Mary Kay Solis Delgado DO Work Phone: Vascular Surgery Comment on above: Stenosis of carotid artery, unspecified laterality; History of carotid endarterectomy; History of transient ischemic attack (TIA); Stenosis of left carotid artery Start: 10-12-2022 End: 10-12-2022 Subsequent hospital visit by physician [facility] ([facility]) Work Phone: Cat Scan Comment on above: Occlusion and stenos is of unspecified carotid artery [I65.29] Start: 09-30-2022 End: 09-30-2022 Anticoagulant drug monitoring [facility] Work Phone: [facility] [place] Comment on above: Factor V deficiency (HCC) Start: 08-31-2022 Telephone encounter Anastasiia vigil LUDLOW MACHINE OPERATOR.CASING MATERIAL WEIGHER Work Phone: [facility] [place] Comment on above: Results Start: 08-24-2022 Telephone encounter Kierra angulo MD Work Phone: [facility] Medicine [place] Comment on above: Patient Question; An ticoagulation Start: 08-18-2022 End: 08-18-2022 Subsequent hospital visit by physician Bone Density [facility] Work Phone: Radiology Comment on above: Screening for osteop orosis [Z13.820] Start: 08-10-2022 Telephone encounter Anastasiia vigil LUDLOW MACHINE OPERATOR.CASING MATERIAL WEIGHER Work Phone: Internal Medicine [place] Comment on above: Results (Carotid ult rasound) Start: 08-02-2022 Telephone encounter Anastasiiacornelius vigil LUDLOW MACHINE OPERATOR.CASING MATERIAL WEIGHER Work Phone: [facility] [place] Comment on above: Anticoagulation Start: 08-02-2022 End: 08-02-2022 Office outpatient visit 15 minutes Anastasiiacornelius Colón LUDLOW MACHINE OPERATOR.CASING MATERIAL WEIGHER Work Phone: [facility] [place] Comment on above: Type 2 diabetes mingo itus with hyperglycemia, without long-term current use of insulin (HCC) (Primary Dx); Encounter for immunization; Screening for diabetic retinopathy; Screening for osteoporosis; Asymptomatic menopause Start: 07-02-2022 Telephone encounter Anastasiia Savannah vigil LUDLOW MACHINE OPERATOR.CASING MATERIAL WEIGHER Work Phone: [facility] [place] Comment on above: Results Start: 07-01-2022 End: 07-01-2022 Office outpatient visit 25 minutes Anastasiiacornelius Colón LUDLOW MACHINE OPERATOR.CASING MATERIAL WEIGHER Work Phone: [facility] [place] Comment on above: Routine medical exam (Primary [...] 07-01-2022 End: 07-01-2022 Patient encounter status Anastasiia Salternayely CAMPBELL.CASING MATERIAL WEIGHER Work Phone: [facility] Medicine [place] Procedures Date Procedure Procedure Detail Performing Clinician Start: 10-07-2024 X-ray of chest, PA and lateral views Dr. Kierra Santiago MD Work Phone: Start: 10-07-[address] Kierra Santiago MD Work Phone: Start: 10-07-2024 Measurement of occult blood in stool specimen using immunoassay Dr. Kierra Santiago MD Work Phone: Start: 10-01-2024 CT angiography of head and [...] abdominal real time w/image limited Joelle Barreto LUDLOW MACHINE OPERATOR.PET AMBASSADOR Work Phone: Start: 11-14-2023 Echo tthrc r-t 2d w/wo m-mode complete rest&st Anastasiia Colón LUDLOW MACHINE OPERATOR.CASING MATERIAL WEIGHER Work Phone: Start: 11-14-2023 Adult depression screening assessment Echocardiogram [facility] Work Phone: Start: 02-04-2023 Normal-[employer] COVID-19 VACCINE ( SEASON) AGE 12+ YR [...] study 1/> sites axial skel Anastasiia Colón LUDLOW MACHINE OPERATOR.CASING MATERIAL WEIGHER Work Phone: History of carotid endarterectomy History of carotid endarterectomy [facility] LUDLOW MACHINE OPERATOR.CASING MATERIAL WEIGHER Work Phone: History of carotid endarterectomy History of carotid endarterectomy [facility] LUDLOW MACHINE OPERATOR.CASING MATERIAL WEIGHER Work Phone: History of carotid endarterectomy History of carotid endarterectomy Mary Kay Delgado DO Work Phone: History of carotid endarterectomy History of carotid endarterectomy Kierra Santiago MD Work Phone: Plan of Treatment Date Care Activity Detail Author Start: 10-16-2033 Urine microalbumin profile DTaP,Tdap,Td Vaccine (2 - Td or Tdap) [facility] Start: 01-29-2025 End: 01-29-2025 Patient encounter procedure 01/29/2025 10:00 AM EDT Office Visit [facility] [place] [address] [place] [address] Kierra Santiago MD [address] [place] [address] 6 month f/u [facility] [place] Comment on above: 6 month f/u Start: 01-17-2025 Hemoglobin A1c measurement HbA1C [facility] Start: 12-26-2024 Hepatitis B screening Urine Albumin:Creatinine Ratio [facility] Start: 12-26-2024 Hepatitis B surface antibody level LDL Cholesterol [facility] Start: 11-13-2024 Anxiety Screening Anxiety Screening [facility] Start: 11-13-2024 Depression Screening Depression Screening [facility] Start: 10-09-2024 End: 10-09-2024 Anticoagulant drug monitoring 10/09/2024 9:45 AM EDT Anticoagulation Visit [facility] [place] [address] [place] [address] Wstr, Anticoag [facility] [address] [place] [address] inr [facility] [place] Comment on above: inr Start: 10-09-2024 [facility] Start: 10-08-2024 Prothrombin time [facility] Start: 10-08-2024 Following clinical pathway protocol [facility] Start: 10-08-2024 Transfusion of blood product [facility] Start: 10-08-2024 Assessment of risk of venous thromboembolism [facility] Start: 10-08-2024 Care regimes management [facility] Start: 10-08-2024 Fall prevention [facility] Start: 10-08-2024 Incentive spirometry [facility] Start: 10-08-2024 Inhalation therapy procedure [facility] Start: 10-08-2024 Insertion of catheter into peripheral vein [facility] Start: 10-08-2024 Introduction of urinary catheter [facility] Start: 10-08-2024 Measuring intake and output [facility] Start: 10-08-2024 Notification of physician [facility] Start: 10-08-2024 Oxygen therapy [facility] Start: 10-08-2024 Prothrombin time [facility] Start: 10-08-2024 Providing care according to standard [facility] Start: 10-08-2024 Provision of activity privileges [facility] Start: 10-08-2024 Referral to gastroenterology service [facility] Start: 10-08-2024 Referral to occupational therapist [facility] Start: 10-08-2024 Referral to service [facility] Start: 10-08-2024 End: 10-08-2024 [facility] Start: 10-07-2024 Verification routine [facility] Start: 10-07-2024 Admission procedure [facility] Start: 10-07-2024 Fresh frozen plasma [facility] Start: 10-07-2024 Leukocyte reduced red blood cells [facility] Start: 10-07-2024 [facility] Start: 10-07-2024 End: 10-07-2024 Administration of blood product [facility] Start: 10-07-2024 [facility] Start: 09-18-2024 Glaucoma screening Dilated Retinal Exam [facility] Start: 09-14-2024 Hepatitis B screening Urine Albumin:Creatinine Ratio [facility] Start: 09-14-2024 Hepatitis B surface antibody level LDL Cholesterol [facility] Start: 09-11-2024 End: 09-11-2024 Anticoagulant drug monitoring 09/11/2024 9:30 AM EDT [facility] [address] [place] [address] [facility] [address] [place] [address] [facility]r [facility] Comment on above: inr Start: 08-22-2024 Egd transoral biopsy single/multiple EGD BIOPSY SINGLE/MULTIPLE [facility] Start: 08-22-2024 Patient discharge [facility] Start: 08-21-2024 End: 08-21-2024 Anticoagulant drug monitoring 08/21/2024 9:45 AM EDT Antico[facility] [address] [place] [address] Wstr, Anticoag [facility] [address] [place] [address] inr [facility] Comment on above: inr Start: 08-17-2024 Hepatitis B surface antibody level LDL Cholesterol [facility] Start: 07-31-2024 End: 07-31-2024 Anticoagulant drug monitoring 07/31/2024 9:45 AM EDT [facility] [address] [facility] [place] [address] Wstr, Anticoag [facility] [place] [address] [facility] [address] inr [facility] Comment on above: inr Start: 07-29-2024 Covid-19 Vaccine () Covid-19 Vaccine () [facility] Start: 07-17-2024 End: 10-16-2024 Basic metabolic 2000 panel - Serum or Plasma [facility] Comment on above: Expected: 07/17/2024, Expires: Start: 07-17-2024 End: 10-16-2024 Hemoglobin A1c in Blood [facility] Work Phone: Comment on above: Expected: 07/17/2024, Expires: Start: 07-17-2024 End: 10-16-2024 TSH W/REFLEX FT4 [facility] Comment on above: Expected: 07/17/2024, Expires: Start: 07-17-2024 End: 07-17-2024 Anticoagulant drug monitoring 07/17/2024 11:00 AM EDT Antico[facility] [address] [facility] [place] [address] Wstr, Anticoag [facility] [address] [facility] [address] inr - ok to check pt in when she arrives coming from appt with TB - mrg [facility] Comment on above: inr - ok to check pt in when she arrives coming from appt with TB - mrg Start: 07-17-2024 End: 07-17-2024 Patient encounter procedure 07/17/2024 10:00 AM EDT Office Visit [facility] [address] [place] [address] Anastasiia Colón APRN.CASING MATERIAL WEIGHER [address] [place] [address] follow up [facility] Comment on above: follow up Start: 07-05-2024 End: 07-05-2024 Anticoagulant drug monitoring 07/05/2024 9:45 AM EST Anticoagulation Visit [facility] [address] [place] [address] Wstr, Anticoag [facility] [address] [place] [address] inr [facility] Comment on above: inr Start: 06-28-2024 Hemoglobin A1c measurement HbA1C [facility] Start: 06-28-2024 End: 06-28-2024 Anticoagulant drug monitoring 06/28/2024 9:30 AM EST Anticoagulation Visit [facility] [address] [place] [address] [facility]str[facility] [address] [place] [address] inr [facility] Comment on above: inr Start: 06-12-2024 Patient referral [facility] Work Phone: Start: 06-06-2024 Hepatitis B surface antibody level LDL Cholesterol [facility] Start: 06-05-2024 End: 06-05-2024 Patient encounter procedure 06/05/2024 10:00 AM EST Office Visit Vascular Surgery [address] [place] [address] Mary Kay Delgado, DO [address] [place] [address] follow up after testing [facility] Comment on above: follow up after testing Start: 06-04-2024 End: 06-04-2024 Patient encounter procedure Cardiology Comment on above: 6 week follow uop Start: 05-18-2024 End: 05-18-2024 Patient encounter procedure 05/18/2024 9:20 AM EST Appointment Cat Scan [address] [place], [place] [id number] Occlusion and stenosis of unspecified carotid artery [...] EST Office Visit Cardiology [address] [place] [id number] Terrence Jane MD [address], [address] [id number] Atrial fibrillation, unspecified type (HCC) [I48.91]; Chest pain, unspecified type [R07.9] Cardiology Comment on above: Atrial fibrillation, unspecified type (H CC) [I48.91]; Chest pain, unspecified type [R07.9] Start: 05-02-2024 Advance Directive Discussion Advance Directive Discussion [facility] Start: 04-30-2024 End: 04-23-2025 Echocardiography ECHO Cardiology Routine Aortic valve disorder Expected: 04/30/2024, Expires: 04/23/2025 [facility] Work Phone: Comment on above: Expected: 04/30/2024, Expires: Start: 04-23-2024 End: 04-23-2024 Patient encounter procedure 04/23/2024 3:00 PM EST Office Visit Cardiology [address] [place] [id number] Terrence Jane MD [address], [address] [address] Atrial fibrillation, unspecified type (HCC) [I48.91]; Chest pain, unspecified type [R07.9] Cardiology Comment on above: Atrial fibrillation, unspecified type (H CC) [I48.91]; Chest pain, unspecified type [R07.9] Start: 04-17-2024 End: 04-17-2024 Patient encounter procedure 04/17/2024 11:20 AM EST Office Visit [facility] [address] [place] [address] Anastasiia Colón APRN.CASING MATERIAL WEIGHER [address] [place] [address] [facility] follow up Discharged on 04/08/24 [facility] Comment on above: [facility] follow up Discharged on 04/08/24 Start: 04-09-2024 Development of care plan [facility] Start: 04-08-2024 Patient discharge [facility] Start: 04-06-2024 [facility] Start: 04-05-2024 Referral to service [facility] Start: 04-04-2024 Egd transoral biopsy single/multiple EGD BIOPSY SINGLE/MULTIPLE [facility] Start: 04-04-2024 Patient discharge [facility] Start: 04-03-2024 [facility] Start: 04-03-2024 [facility] Start: 04-02-2024 Referral to gastroenterology service [facility] Start: 03-27-2024 Administration of blood product [facility] Start: 03-27-2024 [facility] Start: 03-27-2024 Administration of blood product [facility] Start: 03-27-2024 [facility] Start: 03-21-2024 Patient referral to dietitian [facility] Start: 03-20-2024 Development of care plan [facility] Start: 03-20-2024 Developing a treatment plan [facility] Start: 03-19-2024 Following clinical pathway protocol [facility] Start: 03-19-2024 Contact precautions [facility] Start: 03-19-2024 Consultation for treatment [facility] Start: 03-19-2024 Referral to duralumin metalworker [facility] Start: 03-19-2024 Referral to vascular surgeon [facility] Start: 03-19-2024 Wound care [facility] Start: 03-19-2024 Provision of activity privileges [facility] Start: 03-19-2024 Admission procedure [facility] Start: 03-19-2024 Introduction of urinary catheter [facility] Start: 03-19-2024 Measuring intake and output [facility] Start: 03-19-2024 Patient referral to dietitian [facility] Start: 03-19-2024 Referral to occupational therapist [facility] Start: 03-19-2024 Referral to service [facility] Start: 03-19-2024 Vital signs measurements [facility] Start: 03-19-2024 End: 03-19-2024 [facility] Start: 03-12-2024 End: 03-12-2024 Patient encounter procedure [facility] Comment on above: 2 month follow up 2 month follow up, A nxiety and Depression. See TE from 02/29/24. Start: 03-08-2024 End: 03-08-2024 Anticoagulant drug monitoring 03/08/2024 9:00 AM EST Anticoagulation [facility] [address] [place] [address] Wstr, Anticoag [facility] [address] [place] [address] inr [facility] Comment on above: inr Start: 03-01-2024 End: 03-01-2024 Anticoagulant drug monitoring 03/01/2024 10:15 AM EDT Anticoagulation Visit [facility] [address] [place] [address] Wstr, Anticoag [facility] [address] [place] [address] inr - ok to check pt in when she arrives coming from [facility] Comment on above: inr - ok to check pt in when she arrives coming from [facility] Start: 02-27-2024 End: 02-27-2024 Anticoagulant drug monitoring 02/27/2024 9:45 AM EDT Anticoagulation Visit [facility] [address] [place] [address] Wstr, Anticoag [facility] [address] [place] [address] INR - transitioning off Lovenox [facility] Comment on above: INR - transitioning off Lovenox Start: 02-23-2024 End: 05-24-2024 CBC W Auto Differential panel - Blood [facility] Comment on above: Expected: 02/23/2024, Expires: Start: 02-23-2024 End: 05-24-2024 Comprehensive metabolic 2000 panel - Serum or Plasma [facility] Comment on above: Expected: 02/23/2024, Expires: Start: 02-23-2024 End: 05-24-2024 PT panel - Platelet poor plasma by Coagulation assay PROTHROMBIN TIME Lab Routine Factor 5 Leiden mutation, heterozygous (HCC) Expected: 02/23/2024, Expires: 05/24/2024 [facility] Work Phone: Comment on above: Expected: 02/23/2024, Expires: Start: 02-06-2024 End: 02-06-2024 Patient encounter procedure 02/06/2024 9:20 AM EDT Office Visit [facility] [address] [place] [address] Anastasiia Colón APRN.CASING MATERIAL WEIGHER [address] [place] [address] 4 month follow up [facility] Comment on above: 4 month follow up Start: 01-19-2024 End: 01-19-2024 Anticoagulant drug monitoring 01/19/2024 11:30 AM EDT Anticoagulation Visit [facility] [address] [place] [address] Wstr, Anticoag [facility] [address] [place] [address] inr [facility] Comment on above: inr Start: 01-11-2024 End: 01-11-2024 Patient encounter procedure 01/11/2024 4:00 PM EDT Office Visit [facility] [address] [facility] [place] [address] Kierra Santiago MD [address] [place] [address] 3 month f/u [facility] Comment on above: 3 month f/u Start: 01-05-2024 End: 01-05-2024 Anticoagulant drug monitoring 01/05/2024 9:15 AM EDT Anticoagulation Visit [facility] [address] [place] [address] Wstr, Anticoag [facility] [address] [place] [address] inr [facility] Comment on above: inr Start: 01-01-2024 Covid-19 Vaccine ( season) Covid-19 Vaccine ( season) [facility] Start: 01-01-2024 Influenza vaccination [facility] Start: 12-27-2023 End: 03-27-2024 Microalbumin/Creatinine [Mass Ratio] in Urine [facility] Work Phone: Comment on above: Expected: 12/27/2023, Expires: Start: 12-16-2023 Hemoglobin A1c measurement HbA1C [facility] Start: 12-12-2023 Shingrix Vaccine (2 of 2) Shingrix Vaccine (2 of 2) [facility] Start: 12-11-2023 End: 12-25-2023 COVID & INFLUENZA A/B & RSV NAAT, ROUTINE COVID & INFLUENZA A/B & RSV NAAT, ROUTINE Microbiology Routine Acute cough URI, acute Expected: 12/11/2023, Expires: 12/25/2023 [facility] Work Phone: Comment on above: Expected: 12/11/2023, Expires: Start: 12-08-2023 End: 12-08-2023 Anticoagulant drug monitoring 12/08/2023 9:15 AM EDT [facility] [address] [place] [address] Wstr, Anticoag [facility] [address] [facility] [address] inr [facility] Comment on above: inr Start: 12-05-2023 Hemoglobin A1c measurement HbA1C [facility] Start: 11-30-2023 Hepatitis B surface antibody level LDL CHOLESTEROL [facility] Start: 11-30-2023 End: 11-30-2023 Patient encounter procedure 11/30/2023 7:45 AM EDT Appointment Radiology [address] [facility] [place] [id number] elevated alanine aminotransferase (ALT) Radiology Comment on above: elevated alanine aminotransferase (ALT) Start: 11-18-2023 End: 02-17-2024 Chronic hepatitis differentiation between hepatitis B and C virus panel - Serum or Plasma HEP REMOTE PANEL BL Lab Routine Elevated alanine aminotransferase (ALT) level Expected: 11/18/2023, Expires: 02/17/2024 [facility] Comment on above: Expected: 11/18/2023, Expires: Start: 11-18-2023 End: 02-17-2024 Hepatic function 2000 panel - Serum or Plasma HEPATIC FUNCTION PNL Lab Routine Elevated alanine aminotransferase (ALT) level Expected: 11/18/2023, Expires: 02/17/2024 [facility] Comment on above: Expected: 11/18/2023, Expires: Start: 11-18-2023 End: 11-18-2023 Patient encounter procedure 11/18/2023 11:20 AM EDT Office Visit Gastroenterology [facility] [address] [facility] [place] [id number] Joelle Barreto, LUDLOW MACHINE OPERATOR.PET AMBASSADOR [address] [place], [place] [id number] Transaminitis [R74.01] [facility] Comment on above: Transaminitis [R74.01] Start: 11-17-2023 Hemoglobin A1c measurement HbA1C [facility] Start: 11-14-2023 End: 11-14-2023 Patient encounter procedure 11/14/2023 1:50 PM EDT Office Visit Cardiology [address] [place] [address] Wstr, Nurse Card Admin [facility] [address] [place] [address] Chest pain, unspecified type [R07.9] Cardiology Comment on above: Chest pain, unspecified type [R07.9] Start: 11-14-2023 End: 11-14-2023 Patient encounter procedure 11/14/2023 9:40 AM EDT Office Visit [facility] [address] [facility] [place] [address] Anastasiia Colón APRN.CASING MATERIAL WEIGHER [address] [facility] [address] follow up [facility] Comment on above: follow up Start: 11-13-2023 End: 02-12-2024 Basic metabolic 2000 panel - Serum or Plasma BASIC METABOLIC PANEL Lab Routine Type 2 diabetes mellitus with diabetic polyneuropathy, without long-term current use of insulin (HCC) Expected: 11/13/2023 (Approximate), Expires: 02/12/2024 [facility] Work Phone: Comment on above: Expected: 11/13/2023 (Approximate), Expi res: 02/12/2024 Start: 11-10-2023 End: 11-10-2023 Anticoagulant drug monitoring 11/10/2023 9:15 AM EDT Antico[facility] [address] [facility] [place] [address] Wstr, Anticoag [facility] [address] [place] [address] inr [facility] Comment on above: inr Start: 10-24-2023 End: 10-24-2023 Patient encounter procedure 10/24/2023 3:40 PM EDT Appointment Cat Scan [address] [place] [address] Lung nodules [R91.8] Cat Scan Comment on above: Lung nodules [R91.8] Start: 10-18-2023 End: 01-17-2024 Basic metabolic 2000 panel - Serum or Plasma BASIC METABOLIC PANEL Lab Routine Uncontrolled type 2 diabetes mellitus with hyperglycemia (HCC) Hyponatremia Expected: 10/18/2023 (Approximate), Expires: 01/17/2024 [facility] Work Phone: Comment on above: Expected: 10/18/2023 (Approximate), Expi res: 01/17/2024 Start: 10-13-2023 End: 10-13-2023 Anticoagulant drug monitoring 10/13/2023 9:00 AM EDT Anticoagulation Visit [facility] [address] [place] [address] Wstr, Anticoag [facility] [address] [place] [address] inr [facility] Comment on above: inr Start: 10-12-2023 End: 10-12-2023 Nursing evaluation of patient and report 10/12/2023 2:00 PM EDT Nurse Visit Endocrinology [address] [place] [address] Suresh Varela, RN [address] [address] Uncontrolled type 2 diabetes mellitus with hyperglycemia (HCC) [E11.65] Endocrinology Comment on above: Uncontrolled type 2 diabetes mellitus wi th hyperglycemia (HCC) [E11.65] Start: 10-10-2023 End: 01-09-2024 Comprehensive metabolic 2000 panel - Serum or Plasma [facility] Comment on above: Expected: 10/10/2023, Expires: Start: 10-10-2023 End: 10-10-2023 Patient encounter procedure 10/10/2023 11:40 AM EDT Office Visit [facility] [address] [facility] [place] [address] Anastasiia Colón APRN.CASING MATERIAL WEIGHER [address] [place] [address] 4 month follow up [facility] Comment on above: 4 month follow up Start: 10-07-2023 End: 10-07-2023 Patient encounter procedure 10/07/2023 10:40 AM EDT Office Visit [facility] [address] [facility] [place] [address] Kierra Santiago MD [address] [facility] [address] 4 month follow up [facility] Comment on above: 4 month follow up Start: 10-04-2023 End: 10-04-2023 Patient encounter procedure 10/04/2023 9:30 AM EDT Office Visit Vascular Surgery [address] [facility] [place] [address] Mary Kay Delgado, DO [address] [place] [address] 6 MONTH FOLLOW UP WITH CAROTID TESTING [...] insulin (HCC) Expected: 09/30/2023 (Approximate), Expires: 06/01/2024 [facility] Work Phone: Comment on above: Expected: 09/30/2023 (Approximate), Expi res: 06/01/2024 Start: 09-30-2023 End: 06-01-2024 CBC W Auto Differential panel - Blood CBC + DIFF Lab Routine Factor V deficiency (HCC) Type 2 diabetes mellitus with hyperglycemia, without long-term current use of insulin (HCC) Type 2 diabetes mellitus with diabetic polyneuropathy, without long-term current use of insulin (HCC) Expected: 09/30/2023 (Approximate), Expires: 06/01/2024 [facility] Work Phone: Comment on above: Expected: 09/30/2023 [...] insulin (HCC) Expected: 09/30/2023 (Approximate), Expires: 06/01/2024 [facility] Work Phone: Comment on above: Expected: 09/30/2023 (Approximate), Expi res: 06/01/2024 Start: 09-30-2023 End: 06-01-2024 Hemoglobin A1c in Blood HGB A1C Lab Routine Peripheral vascular disease, unspecified (HCC) Type 2 diabetes mellitus with hyperglycemia, without long-term current use of insulin (HCC) Type 2 diabetes mellitus with diabetic polyneuropathy, without long-term current use of insulin (HCC) Expected: 09/30/2023 (Approximate), Expires: 06/01/2024 [facility] Work Phone: Comment on above: Expected: 09/30/2023 [...] Mixed hyperlipidemia Expected: 09/30/2023 (Approximate), Expires: 06/01/2024 [facility] Work Phone: Comment on above: Expected: 09/30/2023 (Approximate), Expi res: 06/01/2024 Start: 09-30-2023 End: 06-01-2024 Thyrotropin [Units/volume] in Serum or Plasma TSH BLD Lab Routine Type 2 diabetes mellitus with hyperglycemia, without long-term current use of insulin (HCC) Type 2 diabetes mellitus with diabetic polyneuropathy, without long-term current use of insulin (HCC) Subclinical hypothyroidism Expected: 09/30/2023 (Approximate), Expires: 06/01/2024 [facility] Work Phone: Comment on above: Expected: 09/30/2023 (Approximate), Expi res: 06/01/2024 Start: 09-29-2023 End: 09-29-2023 Patient encounter procedure 09/29/2023 11:00 AM EDT Office Visit Vasculary Surgery [address] [place] [address] 6 MONTH FOLLOW UP WITH CAROTID TESTING [facility] Comment on above: 6 MONTH FOLLOW UP WITH CAROTID TESTING Start: 09-09-2023 Glaucoma screening Dilated Retinal Exam [facility] Start: 09-09-2023 Hepatitis C antibody, confirmatory test DILATED RETINAL EXAM [facility] Start: 08-26-2023 Hepatitis B surface antibody level LDL CHOLESTEROL [facility] Start: 08-10-2023 3 comp foot exam completed DIABETIC FOOT EXAM [facility] Start: 08-10-2023 Diabetic foot examination Diabetic Foot Exam [facility] Start: 08-03-2023 COVID-19 VACCINE (#1) COVID-19 VACCINE (#1) [facility] Comment on above: Postponed from 04/15/1941 (Declined at t his time) Start: 08-03-2023 Hepatitis B screening URINE ALBUMIN:CREATININE RATIO [facility] Start: 08-03-2023 Pneumococcal Vaccine: 65+ (1 - PCV) Pneumococcal Vaccine: 65+ (1 - PCV) [facility] Comment on above: Postponed from 10/14/1946 (Declined at t his time) Start: 08-03-2023 Pneumococcal Vaccine: 65+ (1 of 2 - PCV) Pneumococcal Vaccine: 65+ (1 of 2 - PCV) [facility] Comment on above: Postponed from 10/14/1946 (Declined at t his time) Start: 04-03-2024 PNEUMOCOCCAL: 65+ (1 - PCV) PNEUMOCOCCAL: 65+ (1 - PCV) [facility] Comment on above: Postponed from 10/14/1946 (Declined at t his time) Start: 08-03-2023 SHINGRIX VACCINE (1 of 2) SHINGRIX VACCINE (1 of 2) [facility] Comment on above: Postponed from 10/14/1989 (Declined at t his time) Start: 08-03-2023 Urine microalbumin profile [facility] Comment on above: Postponed from 10/14/1958 (Declined at t his time) Start: 07-02-2023 Hepatitis B surface antibody level LDL CHOLESTEROL [facility] Start: 06-07-2023 Covid-19 Vaccine () Covid-19 Vaccine () [facility] Start: 06-01-2023 Hemoglobin A1c measurement HbA1C [facility] Start: 06-01-2023 Hemoglobin A1c/Hemoglobin.total in Blood HBA1C [facility] Start: 05-02-2023 Advance Directive Discussion Advance Directive Discussion [facility] Start: 05-02-2023 Behavioral Health Screening Behavioral Health Screening [facility] Start: 05-02-2023 Depression Assessment Depression Assessment [facility] Start: 01-01-2023 Hemoglobin A1c/Hemoglobin.total in Blood HBA1C [facility] Start: 12-31-2022 Influenza vaccination [facility] Start: 11-19-2022 End: 08-29-2023 Hemoglobin A1c in Blood HGB A1C Lab Routine Type 2 diabetes mellitus with hyperglycemia, without long-term current use of insulin (HCC) Expected: 11/19/2022 (Approximate), Expires: 08/29/2023 [facility] Work Phone: Comment on above: Expected: 11/19/2022 (Approximate), Expi res: 08/29/2023 Start: 11-19-2022 End: 08-29-2023 Lipid 1996 panel - Serum or Plasma LIPID PANEL BASIC Lab Routine High triglycerides Expected: 11/19/2022 (Approximate), Expires: 08/29/2023 [facility] Work Phone: Comment on above: Expected: 11/19/2022 (Approximate), Expi res: 08/29/2023 Start: 08-29-2022 3 comp foot exam completed DIABETIC FOOT EXAM [facility] Comment on above: Postponed from 10/14/1950 (Postponed To Appropriate Date) Start: 08-10-2022 End: 10-10-2022 Lipid 1996 panel - Serum or Plasma LIPID PANEL BASIC Lab Routine Stenosis of carotid artery, unspecified laterality History of carotid endarterectomy History of transient ischemic attack (TIA) Stenosis of left carotid artery Expected: 08/10/2022, Expires: 10/10/2022 [facility] Work Phone: Comment on above: Expected: 08/10/2022, Expires: 3 Start: 08-02-2022 End: 10-02-2022 ALBUMIN/CREAT RATIO RND UR [facility] Work Phone: Comment on above: Expected: 08/02/2022, Expires: 3 Start: 05-02-2022 ADVANCE DIRECTIVE DISCUSSION ADVANCE DIRECTIVE DISCUSSION [facility] Start: 05-02-2022 DEPRESSION ASSESSMENT DEPRESSION ASSESSMENT [facility] Start: 12-31-2021 Influenza vaccination INFLUENZA (#1) [facility] Start: 10-14-2014 RSV Vaccine (1 - 1-dose 75+ series) RSV Vaccine (1 - 1-dose 75+ series) [facility] Start: 10-14-2004 BONE DENSITY BONE DENSITY [facility] Start: 1999 Hepatitis B Vaccine (1 of 3 - Risk 3-dose series) Hepatitis B Vaccine (1 of 3 - Risk 3-dose series) [facility] Start: 1999 RSV Vaccine (1 - 1-dose 60+ series) RSV Vaccine (1 - 1-dose 60+ series) [facility] Start: 10-14-1989 SHINGRIX VACCINE (1 of 2) SHINGRIX VACCINE (1 of 2) [facility] Start: 10-14-1958 Urine microalbumin profile [facility] Start: 10-14-1949 3 comp foot exam completed DIABETIC FOOT EXAM [facility] Start: 10-14-1949 Hepatitis B screening URINE ALBUMIN:CREATININE RATIO [facility] Start: 10-14-1949 Hepatitis C antibody, confirmatory test DILATED RETINAL EXAM [facility] Start: 10-14-1945 Pneumococcal Vaccine: 65+ (1 of 2 - PCV) Pneumococcal Vaccine: 65+ (1 of 2 - PCV) [facility] Start: 10-14-1945 PNEUMOCOCCAL: 65+ (1 - PCV) PNEUMOCOCCAL: 65+ (1 - PCV) [facility] Start: 04-15-1940 COVID-19 VACCINE (#1) COVID-19 VACCINE (#1) [facility] Alanine aminotransfe rase [Enzymatic activity/volume] in Serum or Plasma [facility] Albumin [Mass/volume ] in Serum or Plasma [facility] Alkaline phosphatase [Enzymatic activity/volume] in Serum or Plasma [facility] Anion gap in Serum o r Plasma [facility] Bilirubin, total measurement [facility] BUN/Creatinine ratio [facility] Calcium [Mass/volume ] in Serum or Plasma [facility] Carbon dioxide, tota l [Moles/volume] in Central venous blood [facility] End: 02-04-2024 CBC panel - Blood by Automated count CBC Lab Routine Type 2 diabetes mellitus with diabetic polyneuropathy, without long-term current use of insulin (HCC) Primary hypertension Encounter for long-term current use of medication Every 3 months for 4 Occurrences starting 02/04/2023 until 02/04/2024 [facility] Work Phone: Comment on above: Every 3 months for 4 Occurrences startin g 02/04/2023 until 02/04/2024 Cholesterol [Mass/volume] in Serum or Plasma [facility] Cholesterol in HDL [Mass/volume] in Serum or Plasma [facility] End: 02-04-2024 Comprehensive metabolic 2000 panel - Serum or Plasma COMP METABOLIC PANEL Lab Routine Type 2 diabetes mellitus with diabetic polyneuropathy, without long-term current use of insulin (HCC) Primary hypertension Encounter for long-term current use of medication Every 3 months for 4 Occurrences starting 02/04/2023 until 02/04/2024 [facility] Work Phone: Comment on above: Every 3 months for 4 Occurrences startin g 02/04/2023 until 02/04/2024 Creatinine [Mass/vol ume] in Serum or Plasma [facility] CT Chest WO contrast CT CHEST WO IVCON Radiology Routine Lung nodules 10/24/2023 3:51 PM EDT [facility] Work Phone: End: 11-08-2024 CT Chest WO contrast CT CHEST WO IVCON Radiology Routine Lung nodules 1 Occurrences starting 10/10/2023 until 11/08/2024 [facility] Work Phone: Comment on above: 1 Occurrences starting 10/10/2023 until 11/08/2024 End: 06-07-2025 CT Neck W contrast IV CTA NECK W IVCON Radiology Routine Occlusion and stenosis of unspecified carotid artery 1 Occurrences starting 05/08/2024 until 06/07/2025 [facility] Comment on above: 1 Occurrences starting 05/08/2024 until 06/07/2025 End: 06-07-2025 CTA Head Arteries W contrast IV CTA HEAD W IVCON Radiology Routine Occlusion and stenosis of unspecified carotid artery 1 Occurrences starting 05/08/2024 until 06/07/2025 [facility] Work Phone: Comment on above: 1 Occurrences starting 05/08/2024 until 06/07/2025 CTA Head vessels and Neck vessels W contrast IV [facility] End: 09-01-2023 DXA-AXIAL SKELETON DXA-AXIAL SKELETON Radiology Routine Screening for osteoporosis Asymptomatic menopause 1 Occurrences starting 08/02/2022 until 09/01/2023 [facility] Work Phone: Comment on above: 1 Occurrences starting 08/02/2022 until 09/01/2023 Erythrocyte mean corpuscular volume determination [facility] Glucose [Mass/volume ] in Serum or Plasma [facility] Hematocrit [Volume Fraction] of Blood [facility] Hematocrit [Volume Fraction] of Blood [facility] Hemoglobin [Mass/vol ume] in Blood [facility] Hemoglobin [Mass/vol ume] in Blood [facility] End: 02-04-2024 Hemoglobin A1c in Blood HGB A1C Lab Routine Type 2 diabetes mellitus with diabetic polyneuropathy, without long-term current use of insulin (HCC) Encounter for long-term current use of medication Every 3 months for 4 Occurrences starting 02/04/2023 until 02/04/2024 [facility] Work Phone: Comment on above: Every 3 months for 4 Occurrences startin g 02/04/2023 until 02/04/2024 INR in Blood by Coagulation assay [facility] INR in Blood by Coagulation assay [facility] End: 07-01-2023 INR in Platelet poor plasma by Coagulation assay INR (POC) Lab Routine Factor V deficiency (HCC) Every other week for 99 Occurrences starting 07/01/2022 until 07/01/2023 [facility] Work Phone: Comment on above: Every other week for 99 Occurrences star ting 07/01/2022 until 07/01/2023 End: 07-20-2024 INR in Platelet poor plasma by Coagulation assay INR (POC) Lab Routine Factor V deficiency (HCC) Once per month for 99 Occurrences starting 07/21/2023 until 07/20/2024 [facility] Work Phone: Comment on above: Once per month for 99 Occurrences starti ng 07/21/2023 until 07/20/2024 End: 07-31-2025 INR in Platelet poor plasma by Coagulation assay INR (POC) Lab Routine Factor V deficiency (HCC) Once per month for 99 Occurrences starting 07/31/2024 until 07/31/2025 [facility] Work Phone: Comment on above: Once per month for 99 Occurrences starti ng 07/31/2024 until 07/31/2025 Leukocytes [#/volume ] in Blood [facility] End: 02-04-2024 Lipid 1996 panel - Serum or Plasma LIPID PANEL BASIC Lab Routine Encounter for long-term current use of medication Mixed hyperlipidemia Every 3 months for 4 Occurrences starting 02/04/2023 until 02/04/2024 [facility] Work Phone: Comment on above: Every 3 months for 4 Occurrences startin g 02/04/2023 until 02/04/2024 Low density lipoprot ein cholesterol measurement [facility] Mean corpuscular hemoglobin concentration determination [facility] Mean corpuscular hemoglobin determination [facility] Measurement of renal function [facility] Neutrophil count [facility] Neutrophil percent differential count [facility] Patient referral [facility] Work Phone: Ripl COVI D-19 VACCINE () AGE 12+ YR [employer] COVID-19 VACCINE () AGE 12+ YR Immunization/Injection Routine Encounter for immunization 1 Occurrences starting 11/14/2023 [facility] Comment on above: 1 Occurrences starting 11/14/2023 Platelets [#/volume] in Blood [facility] Pneumococcal vaccination PNEUMOC OCCAL VACCINE, 20 VALENT (PREVNAR 20) Immunization/Injection Routine Encounter for immunization 1 Occurrences starting 11/14/2023 [facility] Work Phone: Comment on above: 1 Occurrences starting 11/14/[address] [facility] End: 07-01-2023 PT panel - Platelet poor plasma by Coagulation assay PROTHROMBIN TIME/PT Lab Routine Factor V deficiency (HCC) Every other week for 99 Occurrences starting 07/01/2022 until 07/01/2023 [facility] Work Phone: Comment on above: Every other week for 99 Occurrences star ting 07/01/2022 until 07/01/2023 End: 07-20-2024 PT panel - Platelet poor plasma by Coagulation assay PROTHROMBIN TIME/PT Lab STAT Factor V deficiency (HCC) Once per month for 99 Occurrences starting 07/21/2023 until 07/20/2024 [facility] Work Phone: Comment on above: Once per month for 99 Occurrences starti ng 07/21/2023 until 07/20/2024 End: 07-31-2025 PT panel - Platelet poor plasma by Coagulation assay PROTHROMBIN TIME Lab STAT Factor V deficiency (HCC) Once per month for 99 Occurrences starting 07/31/2024 until 07/31/2025 [facility] Comment on above: Once per month for 99 Occurrences starti ng 07/31/2024 until 07/31/2025 Red blood cell count [facility] Red cell distributio n width determination [facility] Serum chloride measurement [facility] Sodium measurement [facility] End: 10-09-2024 STRESS ECHO TREADMILL STRESS ECHO TREADMILL Cardiology Routine Chest pain, unspecified type 1 Occurrences starting 10/10/2023 until 10/09/2024 [facility] Comment on above: 1 Occurrences starting 10/10/2023 until 10/09/2024 Total cholesterol:HD L ratio measurement [facility] Total protein measurement [facility] Triglycerides measurement [facility] Troponin T.cardiac [Mass/volume] in Serum or Plasma by High sensitivity method [facility] Urea nitrogen [Mass/volume] in Serum or Plasma [facility] End: 12-17-2024 US Abdomen RUQ US ABD RIGHT UPPER QUADRANT Radiology Routine Elevated alanine aminotransferase (ALT) level 1 Occurrences starting 11/18/2023 until 12/17/2024 [facility] Work Phone: Comment on above: 1 Occurrences starting 11/18/2023 until 12/17/2024 End: 10-03-2024 US Carotid arteries - bilateral US CAROTID ARTERIES [facility] Vascular Lab Routine Bilateral carotid artery stenosis 1 Occurrences starting 10/04/2023 until 10/03/2024 [facility] Work Phone: Comment on above: 1 Occurrences starting 10/04/2023 until 10/03/2024 End: 07-02-2023 US CAROTID ARTERIES [facility] US CAROTID ARTERIES [facility] Vascular Lab Routine Stenosis of carotid artery, unspecified laterality History of carotid endarterectomy 1 Occurrences starting 07/01/2022 until 07/02/2023 [facility] Work Phone: Comment on above: 1 Occurrences starting 07/01/2022 until 07/02/2023 End: 12-02-2023 US CAROTID ARTERIES [facility] US CAROTID ARTERIES [facility] Vascular Lab Routine Carotid stenosis, asymptomatic, bilateral 1 Occurrences starting 12/01/2022 until 12/02/2023 [facility] Work Phone: Comment on above: 1 Occurrences starting 12/01/2022 until 12/02/2023 End: 03-15-2024 US CAROTID ARTERIES [facility] US CAROTID ARTERIES [facility] Vascular Lab Routine Bilateral carotid artery stenosis 1 Occurrences starting 03/15/2023 until 03/15/2024 [facility] Work Phone: Comment on above: 1 Occurrences starting 03/15/2023 until 03/15/2024 VLDL cholesterol measurement [facility] End: 01-09-2025 XR Chest PA and Lateral XR CHEST 2V FRONTAL/LAT Radiology STAT Acute cough 1 Occurrences starting 12/11/2023 until 01/09/2025 [facility] Comment on above: 1 Occurrences starting 12/11/2023 until 01/09/2025 [facility] Immunizations Immunization Date Immunization Notes Care Provider Fa harish 05-08-2024 respiratory syncytia l virus (RSV) vaccine, bivalent (ABRYSVO) Mary Kay Delgado DO Work Phone: [facility] 03-22-2024 pneumococcal conjuga te (PCV20) vaccine, 20 valent (PREVNAR 20) Mary Kay Delgado DO Work Phone: [facility] 01-30-2024 Covid (Spikevax) Dr. Kierra lester MD Work Phone: [facility] 12-26-2023 influenza, high dose seasonal, preservative-free Kierra Santiago MD Work Phone: [facility] 12-26-2023 zoster vaccine recombinant Kierra Santiago MD Work Phone: [facility] 10-17-2023 tetanus toxoid, redu sharan diphtheria toxoid, and acellular pertussis vaccine, adsorbed Anastasiia Colón LUDLOW MACHINE OPERATOR.CASING MATERIAL WEIGHER Work Phone: [facility] 10-17-2023 zoster vaccine recombinant Anastasiia Colón LUDLOW MACHINE OPERATOR.CASING MATERIAL WEIGHER Work Phone: [facility] 02-04-2023 COVID-19 vaccine, ag e 12+ yr, season (Ripl) Kierra Santiago MD Work Phone: [facility] Work Phone: 02-04-2023 influenza (HD-IIV4) vaccine, age 65+ yr, high dose, quadrivalent, PF (FLUZONE HIGH-DOSE) Kierra Santiago MD Work Phone: [facility] Work Phone: 02-04-2023 influenza virus vaccine, unspecified formulation Kierra Santiago MD Work Phone: [facility] 02-23-2022 COVID-19 vaccine, ag e 12+ yr, bivalent (Ripl) Kierra Santiago MD Work Phone: [facility] Work Phone: 03-11-2021 COVID-19 original vaccine, booster dose, monovalent (MODERNA) Kierra Santiago MD Work Phone: [facility] Work Phone: 07-14-2020 COVID-19 original vaccine, full dose, monovalent (MODERNA) Kierra Santiago MD Work Phone: [facility] Work Phone: 06-16-2020 COVID-19 original vaccine, full dose, monovalent (MODERNA) Kierra Santiago MD Work Phone: [facility] Work Phone: Payers Date Payer Category Payer Self-pay [id number] 2024 Unknown ANTHEM BLUE CROS S AND BLUE SHIELD ANTHEM MEDICARE ADVANTAGE [facility] [id number] 2024-[facility] [phone] [address] [place] [address] O [id number] 2024 Medicare [id number] 2023 Self-pay 2022 Medicare (Managed Care) 1.2. [id number] 2022 Private Health Insurance [facility] [id number] 2004 Medicare [id number]. [id number] Unknown [id number] 2.16.840.1.948517.3.579.2. 462 Unknown [id number] 2.16.840.1.470372.3.579.2. 462 Unknown [id number] 2.16.840.1.256023.3.579.2. 462 Unknown [id number] 2.16.840.1.215282.3.579.2. 462 Unknown [id number] 2.16.840.1.543367.3.579.2. 462 Unknown [id number] 2.16.840.1.316885.3.579.2. 462 Unknown [id number] 2.16.840.1.086168.3.579.2. 462 Unknown [id number] 2.16.840.1.207156.3.579.2. 462 Unknown [id number] 2.16.840.1.778136.3.579.2. 462 Unknown [id number] 2.16.840.1.546382.3.579.2. 462 Unknown [id number] 2.16.840.1.366592.3.579.2. 462 Unknown [id number] 2.16.840.1.798768.3.579.2. 462 Unknown [id number] 2.16.840.1.873959.3.579.2. 462 Unknown [id number] 2.16.840.1.058036.3.579.2. 462 Unknown [id number] 2.16.840.1.822145.3.579.2. 462 Unknown [id number] 2.16.840.1.375291.3.579.2. 462 Unknown [id number] 2.16.840.1.924992.3.579.2. 462 Unknown [id number] 2.16.840.1.015279.3.579.2. 462 Unknown [id number] 2.16840.1.527815.3.579.2. 462 Unknown [id number] 2.16.840.1.722969.3.579.2. 462 Unknown [id number] 2.16840.1.167687.3.579.2. 462 Unknown [id number] 2.840.1.680854.3.579.2. 462 Unknown [id number] 2.840.1.798151.3.579.2. 462 Unknown [id number] 2.840.1.304956.3.579.2. 462 Unknown [id number] 2.840.1.357010.3.579.2. 462 Unknown [id number] 2.840.1.576071.3.579.2. 462 Unknown [id number] 2.840.1.031770.3.579.2. 462 Unknown [id number] 2.840.1.578599.3.579.2. 462 Unknown [id number] 2.840.1.893557.3.579.2. 462 Unknown [id number] 2.840.1.549170.3.579.2. 462 Unknown [id number] 2.840.1.032483.3.579.2. 462 Unknown [id number] 2.840.1.203816.3.579.2. 462 Unknown [id number] 2.840.1.848287.3.579.2. 462 Unknown [id number] 2.840.1.257007.3.579.2. 462 Unknown [id number] 2.840.1.188042.3.579.2. 462 Unknown [id number] 2.16.840.1.627020.3.579.2. 462 Unknown [id number] 2.16.840.1.840688.3.579.2. 462 Unknown [id number] 2.16.840.1.794111.3.579.2. 462 Unknown [id number] 2.16.840.1.432470.3.579.2. 462 Unknown [id number] 2.16.840.1.242258.3.579.2. 462 Unknown [id number] 2.16.840.1.505503.3.579.2. 462 Unknown [id number] 2.16.840.1.447043.3.579.2. 462 Unknown [id number] 2.16.840.1.179122.3.579.2. 462 Unknown [id number] 2.16840.1.269021.3.579.2. 462 Unknown [id number] 2.16840.1.659572.3.579.2. 462 Unknown [id number] 2.16840.1.237735.3.579.2. 462 Unknown [id number] 2.16.840.1.007355.3.579.2. 462 Unknown [id number] 2.16.840.1.045715.3.579.2. 462 Unknown [id number] 2.16.840.1.854542.3.579.2. 462 Unknown [id number] 2.16.840.1.813977.3.579.2. 462 Unknown [id number] 2.16.840.1.576834.3.579.2. 462 Unknown [id number] 2.16.840.1.797115.3.579.2. 462 Unknown [id number] 2.16.840.1.051533.3.579.2. 462 Unknown [id number] 2.16.840.1.300903.3.579.2. 462 Unknown [id number] 2.16840.1.701149.3.579.2. 462 Unknown [id number] 2.16840.1.628161.3.579.2. 462 Unknown [id number] 2.16840.1.590076.3.579.2. 462 Unknown [id number] 2.16840.1.299799.3.579.2. 462 Unknown [id number] 2.840.1.986669.3.579.2. 462 Unknown [id number] 2.840.1.960058.3.579.2. 462 Unknown [id number] 2.840.1.459996.3.579.2. 462 Unknown [id number] 2.840.1.489708.3.579.2. 462 Unknown [id number] 2.840.1.817829.3.579.2. 462 Unknown [id number] 2.840.1.656270.3.579.2. 462 Unknown [id number] 2.840.1.232279.3.579.2. 462 Unknown [id number] 2.840.1.019681.3.579.2. 462 Unknown [id number] 2.840.1.620926.3.579.2. 462 Unknown [id number] 2.840.1.601804.3.579.2. 462 Unknown [id number] 2.840.1.536691.3.579.2. 462 Unknown [id number] 2.840.1.804952.3.579.2. 462 Unknown [id number] 2.840.1.949991.3.579.2. 462 Unknown [id number] 2.840.1.155548.3.579.2. 462 Unknown [id number] 2.840.1.365916.3.579.2. 462 Unknown [id number] 2.16.840.1.881175.3.579.2. 462 Unknown [id number] 2.16.840.1.455979.3.579.2. 462 Unknown [id number] 2.16.840.1.924144.3.579.2. 462 Unknown [id number] 2.16.840.1.195080.3.579.2. 462 Unknown [id number] 2.16.840.1.836192.3.579.2. 462 Unknown [id number] 2.16.840.1.211272.3.579.2. 462 Unknown [id number] 2.16.840.1.783980.3.579.2. 462 Unknown [id number] 2.16.840.1.656322.3.579.2. 462 Unknown [id number] 2.16.840.1.373041.3.579.2. 462 Unknown [id number] 2.16.840.1.257688.3.579.2. 462 Social History Date Type Detail Facility Start: 04-14-2015 End: 10-07-2024 Tobacco smoking status WYIS Never smoked tobacco [facility] Work Phone: Start: 07-02-2022 End: 08-02-2022 Alcohol intake Not Asked [facility] Start: 1940 Sex Assigned At Not on file [facility] Start: 08-01-2022 History SDOH Alcohol Frequency 3 [facility] Start: 08-01-2022 History SDOH Alcohol Std Drinks 0 [facility] Start: 08-01-2022 History SDOH Alcohol Binge 1 [facility] Start: 08-01-2022 History SDOH Social Connections Phone 5 [facility] Start: 08-01-2022 History SDOH Physica l Activity DPW 2 [facility] Start: 08-09-2022 End: 07-17-2024 Alcohol intake Current drinker of alcohol (finding) [facility] Start: 08-09-2022 Alcohol Comment occ [facility] Start: 07-31-2022 End: 09-08-2022 History of Social function [facility] Start: 07-31-2022 End: 09-08-2022 Social connection and isolation panel [facility] Do you belong to any clubs or organizations such as amish groups, unions, fraternal or athletic groups, or school groups? Yes [facility] Are you now , , , , never or living with a partner? [facility] How often to you hav e a drink containing alcohol? 2-4 times a month [facility] How many standard drinks containing alcohol do you have on a typical day? Patient does not drink [facility] How often do you hav e 6 or more drinks on 1 occasion? Never [facility] Do you feel stress - tense, restless, nervous, or anxious, or unable to sleep at night because your mind is troubled all the time - these days [OSQ] Only a little [facility] (I/We) worried whehilda er (my/our) food would run out before (I/we) got money to buy more. Never true [facility] In the past 12 month s, was there a time when you were not able to pay the mortgage or rent on time? No [facility] Start: 1940 Sex Assigned At Female C [facility] Start: 08-13-2023 Gender identity Identifies as female gender (finding) [facility] Start: 08-13-2023 Sexual orientation Heterosexual (fin mike) [facility] Start: 07-18-2024 End: 08-21-2024 Sex Female (finding) [facility] NEGATED: Highlighted row Not [facility] Medical Equipment Procedure Code Equipment Code Equipment Origin al Text Equipment Identifier Dates EGD, with monitored anesthesia care Ligation clip, metallic [id number] FDA Start: 04-04-2024 Creation, bypass, arterial, femoral [...] popliteal, using graft Collagen haemostatic agent, non-antimicrobial ()[id number] FDA Start: 03-12-2024 Creation, bypass, arterial, femoral to popliteal, using graft Ligation clip, metallic ()[id number] FDA Start: 03-12-2024 Creation, bypass, arterial, femoral to popliteal, using graft Ligation clip, metallic ()[id number] 90 FDA Start: 03-12-2024 Creation, bypass, arterial, femoral to popliteal, using graft Ligation clip, metallic ()[id number] FDA Start: 03-12-2024 Creation, bypass, arterial, femoral to popliteal, using graft Ligation clip, metallic ()[id number] FDA Start: 03-12-2024 Creation, bypass, arterial, femoral to popliteal, using graft Ligation clip, metallic ()[id number] FDA Start: 03-12-2024 Creation, bypass, arterial, femoral to popliteal, using graft Ligation clip, metallic ()[id number] FDA Start: 03-12-2024 Creation, bypass, arterial, [...] femoral to popliteal, using graft SUTURE,LIGA CLIP LT-100 FDA Start: 01-19-2024 Creation, bypass, arterial, femoral to popliteal, using graft SUTURE,LIGA CLIP LT-100 FDA Start: 01-19-2024 Goals Date Patient Goal Desired Activity /State Personal health goal Functional Status Date Assessment Result Facility 04-08-2024 Functional status Up ad kaylee;Chair [facility] Work Phone: 04-07-2024 Functional status Tolerates Activity Fair [facility] Work Phone: Mental Status Date Assessment Result Facility 08-22-2024 Cognitive function Voice/Name [facility] Work Phone: 04-08-2024 Cognitive function Voice/Name [facility] Work Phone: 04-04-2024 Cognitive function Appropriate;Cooperativ e [facility] Work Phone: 04-04-2024 Cognitive function Voice/Name [facility] Work Phone: Clinical Notes 07-01-2022 to 10-08-2024 Iwona Donato RN - 09/11/2024 6:11 PM Iwona Hammond RN - 09/11/2024 10:32 AM Iwona Hammond RN - 08/21/2024 4:09 PM Iwona Hammond RN - 08/21/2024 12:02 PM EDT Note Date & Type Note Facility 10-08-2024 History and physi susan note [facility] 10-07-2024 Radiology Diagnostic study note [facility] Imaging Services [address] [place] [address] Chest PA and Lateral MR#: [id number] Acct: [id number] Name: ERI PRITCHARD Rep #: [id number] : 1940 F 83 From: Carolyn Montemayor MD PCP: Dr. Kierra Santiago MD Status: RE G ER Study:Chest PA and Lateral Date of Exam: 10/07/24 Exam# [id number] Ordering Dr: Di Fabian MD PROCEDURE: CHEST PA AND LATERAL 10/07/2024 REASON FOR EXAM: SOB, CP TECHNIQUE: Frontal and lateral views of the chest. COMPARISON: Chest radiograph and CTA chest 12/31/2023. FINDINGS: Hardware: None. Heart: Heart size is mildly enlarged. Mediastinum: The mediastinal contour is stable. Lungs: Bibasilar atelectasis/scarring. Trace left pleural effusion. 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 No pneumothorax. Bones: Degenerative changes are identified within the thoracic spine. RAD/Chest PA and Lateral IMPRESSION: Trace left pleural effusion and mild cardiomegaly. Reading Location: [facility] CC: Dr. Matheus Fabian MD; Dr. Kierra Santiago MD ~ Clinical Product Specialist: Signed [facility] 10-01-2024 Radiology Diagnostic study note [facility] Imaging Services [address] [place] [id number] CTA Head AND Neck W/ Contrast MR#: [id number] Acct: [id number] Name: ERI PRITCHARD Rep #: [id number] : 1940 F 83 From: Julian Phillips MD PCP: Dr. Kierra Santiago MD Status: RE G CLI Study:CTA Head AND Neck W/ Contrast Date of E xam: 10/01/24 Exam# [id number] Ordering Dr: Dejan Crowell PROCEDURE: CTA HEAD [...] the proximal right internal carotid artery with [id number]% stenosis. Atherosclerosis of the left proximal internal carotid artery with approximately 75% stenosis. Atherosclerosis of the origins of the bilateral vertebral arteries without significant stenosis. Atherosclerosis of the carotid siphons. The [id number] is patent. The anterior cerebral, anterior communicating, [...] atherosclerosis without hemodynamically significant stenosis. Reading Location: [place] [address] CC: COLTON Wetzel; Dr. Kierra Santiago MD ~ Clinical Product Specialist: Signed [facility] 09-11-2024 Note HNO ID: [id number] Author: IWONA DONATO RN Service: ? Author Type: Registered Nurse Type: Progress Notes Filed: 09/11/2024 18:11 Note Text: pcp agrees with information [facility] 09-11-2024 History of Present illness Narrative pcp agrees with information patient had inr completed at [facility] patients inr is 2.8 (patients inr range is 2.0-3.0) patient is currently taking 2mg Mon,Wed,Fri and 3mg all other days patients last dose change was on 07/05/24 due to a low level of 1.3 (dose at that time was 3mg Tu,Th,Sun and 2mg all other days) patient has [...] follow up INR. documented in this encounter [facility] 09-11-2024 Note [facility] 08-22-2024 Note [facility] 08-21-2024 Note HNO ID: [id number] Author: IWONA DONATO RN Service: ? Author Type: Registered Nurse Type: Progress Notes Filed: 08/21/2024 16:09 Note Text: pcp agrees with information [facility] 08-21-2024 History of Present illness Narrative pcp agrees with information patient had inr completed at [facility] patients inr is 1.8 (patients inr range is 2.0-3.0) patient is currently taking 2mg Mon,Wed,Tue and 3mg all other days patients last [...] follow up INR. documented in this encounter [facility] 08-21-2024 Note [facility] 08-06-2024 Telephone encounter Note Prescription Refill [...] María Petty August 06, 2024 11:17 AM [facility] 08-06-2024 Miscellaneous Notes Prescription Refill Information The [...] 2024 11:17 AM documented in this encounter [facility] 08-02-2024 Note HNO ID: [id number] Author: IWONA DONATO RN Service: ? Author Type: Registered Nurse Type: Progress Notes Filed: 08/02/2024 16:40 Note Text: pcp agrees [facility] 08-02-2024 History of Present illness Narrative pcp agrees patient had inr completed at [facility] patients inr is 2.9 (patients inr range [...] follow up INR. documented in this encounter [facility] 07-31-2024 Telephone encounter Note ok [facility] 07-31-2024 Miscellaneous Notes ok patients orders for coumadin clinic inr's has at this time. new order has been pended for approval if possible so that patient can continue to get inr's completed thru the coumadin clinic. coumadin clinic nurse only needs called if order can not be approved. documented in this encounter [facility] 07-31-2024 Telephone encounter Note patients orders for coumadin clinic inr's has at this time. new order has been pended for approval if possible so that patient can continue to get inr's completed thru the coumadin clinic. coumadin clinic nurse only needs called if order can not be approved. [facility] 07-31-2024 Note [facility] 07-17-2024 Telephone encounter Note Prescription Refill [...] Le Porras July 17, 2024 3:45 PM [facility] 07-17-2024 Miscellaneous Notes Prescription Refill Information The [...] 2024 3:45 PM documented in this encounter [facility] 07-17-2024 Note HNO ID: [id number] Author: ANASTASIIA COLÓN APRN.CASING MATERIAL WEIGHER Service: ? Author Type: Nurse Specialist Type: Progress Notes Filed: 07/17/2024 16:36 Note Text: Continue with Coumadin dose unchanged and check INR in 2 weeks [facility] 07-17-2024 History of Present illness Narrative Continue with Coumadin dose unchanged and check INR in 2 weeks patient had inr completed at [facility] patients inr is 2.1 (patients inr range [...] since dose change documented in this encounter [facility] 07-17-2024 Note [facility] 07-17-2024 History of Present illness Narrative SUBJECTIVE: Diabetic Foot Exam due on 08/10/2023 Advance Directive Discussion due on 05/02/2024 HbA1C due on 06/28/2024 HPI Eri Pritchard is a 83 year [...] her previous visit: She was admitted to [facility] March 19 through April 05. She presented [...] rehab for debility. Discharged to home with [facility] home care. Today reports eating and drinking normally. No bowel or bladder complaints. She has [facility] coming out to her home. 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 Blanca. She reports no upcoming appointment [...] notes leg and foot are healed. Dr. Friend is to repeat EGD. US to be completed of lower extremity is planned to check circulation Seeing Dr. Javier Manzo [facility] [employer]. Notes taking furosemide QD to BID, potassium two tablets daily. To coumadin clinic after leaving here to did today. Well controlled glucose, home BP and home HR noted. Yraiel domínguez HTN: Without report of Last 3 [...] membrane normal. Nose: Rhinorrhea present. Mouth/Throat: Lips: [place]. Mouth: Mucous membranes are moist. Pharynx: Oropharynx [...] at 2.9 on 07/10 per cardiology at [facility] - BASIC METABOLIC PANEL 3. . [...] 6 mo follow up MD Anastasiia Wilson APRN.CASING MATERIAL WEIGHER Medical Decision Making: Problems: Moderate: 2+ stable chronic illnesses Data: Unique test(s) ordered: 3+ Risk: Moderate: Drug management Medical Decision Making Level: 4 - Moderate documented in this encounter [facility] 07-17-2024 Note [facility] 07-11-2024 Telephone encounter Note Home care Certification Form 485 received from [facility]. For cert dates 05/03/24-07/01/24 that were signed on 06/20/24. New Certification Patient's home health 485 form / care plan for stated certification period reviewed and signed. Relevant medical records were reviewed. No changes were indicated [facility] 07-11-2024 Miscellaneous Notes Home care Certification Form 485 received from [facility]. For cert dates 05/03/24-07/01/24 that were signed on 06/20/24. New Certification Patient's home health 485 form / care plan for stated certification period reviewed and signed. Relevant medical records were reviewed. No changes were indicated documented in this encounter [facility] 07-05-2024 Note HNO ID: [id number] Author: IWONA DONATO RN Service: ? Author Type: Registered Nurse Type: Progress Notes Filed: 07/05/2024 16:08 Note Text: PATIENT NOTIFIED OF INFORMATION [facility] 07-05-2024 History of Present illness Narrative PATIENT NOTIFIED OF INFORMATION Recommend Coumadin 6 mg today then Coumadin 3 mg Tuesday; 2 mg all other days. Check INR in 2 weeks. patient had inr completed at [facility] patients inr is 1.3 (patients inr range is 2.0-3.0) patient is currently taking 3mg Tues,Thurs,Sun and 2mg all other days patients last [...] on 07/17/24 - patient has appt with AX SURVEY WORKER also this days please review and advise on recommendation patient only needs called if provider does not agree with recommendation documented in this encounter [facility] 07-05-2024 Note [facility] 07-05-2024 Note [facility] 06-28-2024 Telephone encounter Note The following approved medication requests have been transmitted electronically. Requested Prescriptions Pending Prescriptions Disp Refills metoprolol succinate ER (TOPROL XL) 50 mg 24 hr tablet 180 tablet 3 Sig: Take 1 tablet by mouth two times a day. Kierra Santiago MD [facility] 06-28-2024 Miscellaneous Notes The following approved medication [...] 2024 8:55 AM documented in this encounter [facility] 06-28-2024 Note HNO ID: [id number] Author: IWONA DONATO RN Service: ? Author Type: Registered Nurse Type: Progress Notes Filed: 06/28/2024 16:31 Note Text: PATIENT NOTIFIED OF INFORMATION [facility] 06-28-2024 History of Present illness Narrative PATIENT NOTIFIED OF INFORMATION Recommend Coumadin 3 mg Graciela and and 2 mg all other days and check INR in 1 week. patient had inr completed at [facility] patients inr is 1.3 (patients inr range [...] agree with recommendation documented in this encounter [facility] 06-28-2024 Note HNO ID: [id number] Author: ANASTASIIA COLÓN APRN.CASING MATERIAL WEIGHER Service: ? Author Type: Nurse Specialist Type: Progress Notes Filed: 06/28/2024 16:31 Note Text: Recommend Coumadin 3 mg Graciela and Th and 2 mg all other days and check INR in 1 week. [facility] 06-28-2024 Note [facility] 06-28-2024 Telephone encounter Note PATIENT REPORTS [...] Le Porras June 28, 2024 8:55 AM [facility] 06-14-2024 Note HNO ID: [id number] Author: SAVANAH HAIDER APRN.CNP Service: ? Author Type: Nurse Practitioner Type: Progress Notes Filed: 06/14/2024 10:45 Note Text: Agree with anticoag's recommendations [facility] 06-14-2024 History of Present illness Narrative Agree with anticoag's recommendations patient had inr completed at [facility] patients inr is 2.7 (patients inr range [...] follow up INR. documented in this encounter [facility] 06-14-2024 Note [facility] 06-12-2024 Evaluation note Diagnosis Onset Date Resolution Carotid artery disease acute Fe 2024 8:31am Diarrhea acute June 12, 2024 8:31am Peripheral vascular disease chronic June 12 8:31am Diarrhea acute June 19, 2024 8:20am Gastric ulcer acute June 192024 8:20am GERD (gastroesophageal reflux disease) acute June 19 8:20am Anticoagulant long-term use chronic June 20 9:53am Aortic valve stenosis chronic [facility]2024 9:53am Chronic a-fib chronic June 202024 9:53am Hyperlipidemia chronic June 022024 9:53am Peripheral vascular disease chronic June 20 9:53am Gastric ulcer acute August 22, 2024 11:25am [facility] Work Phone: 1(640) 416-873402-11-2025 Evaluation note* Diagnosis Onset Date Resolution Status Admit Date Carotid artery disease acute Fe 2024 8:31am Diarrhea acute June 12, 2024 8:31am Peripheral vascular disease chronic June 12, 2024 8:31am Diarrhea acute June 19, 2024 8:20am Gastric ulcer acute June 192024 8:20am GERD (gastroesophageal reflu x disease) acute June 19 8:20am Anticoagulant long-term use chronic June 20, 2024 9:53am Aortic valve stenosis chronic [facility] 2024 9:53am Chronic a-fib chronic June 202024 9:53am Hyperlipidemia chronic June 022024 9:53am Peripheral vascular disease chronic June 20, 2024 9:53am Gastric ulcer acute August 22, 2024 11:25am ABLA (acute blood loss anemia) acute October 07, 2024 11:57pm Acute upper GI bleed acute October 07, 2024 11:57pm HFrEF (heart failure with reduced ejection fraction) acute October 07, 2024 11:57pm Pleural effusion, left acute Ju ne 2024 11:57pm Subendocardial ischemia acute J [facility] 2024 11:57pm Warfarin-induced coagulopathy acute October 07, 2024 11:57pm [facility] Work Phone: 1(313) 543-661802-03-2025 [facility] History of Present illness Narrative* Terrence Jane MD - 06/04/2024 12:07 PM EST Images from the original note were not included. Terrence Jane MD Interventional Cardiology [address] [place] [address] [phone] Chief Complaint Patient presents with: Follow Up: [...] MD Follow up planning: Follow up with [facility] Electronically signed by Terrence Jane MD on June 04, 2024, 12:07 PM The above note was partially created using a dictation recognition software. A reasonable attempt has been made to correct any errors. [facility] Telephone encounter Note * Telephone Encounter - Judy Ramos RN - 05/29/2024 9:52 AM EST Patient scheduled for OV 04/04/25, spoke with patient she was able to see Dr. Rojas and no longer needs the appt with [facility]01-28-2025 Miscellaneous Notes* Telephone Encounter - Judy Ramos RN - 05/29/2024 9:52 AM EST Patient scheduled for OV 04/04/25, spoke with patient she was able to see Dr. Rojas and no longer needs the appt with documented in [facility]Mary[facility] Telephone encounter Note * Telephone Encounter - Concetta Sanchez LPN - 05/23/2024 11:59 AM EST Phoned patient and reviewed message with her and she voiced understanding by repeating back the orders. Concetta Sanchez LPN [facility]01-22-2025 Miscellaneous Notes* Telephone Encounter - Concetta Sanchez LPN - 05/23/2024 11:59 AM EST Phoned patient and reviewed message with her and she voiced understanding by repeating back the orders. Concetta Sanchez LPN * Telephone Encounter - Kailee Koch MD - 05/23/2024 11:47 AM EST INR therapeutic. Continue current coumadin dosage and follow up in 2 weeks. * Telephone Encounter - Emily Bustos LPN [...] again. Emily Bustos LPN ROUTING TO PROVIDER DREDGE PUMP OPERATOR DR. KOCH. PT'S PROVIDER /TEAM IS OUT. Emily Bustos LPN documented in this encounterMary[facility]01-[facility]25 Telephone encounter Note * Telephone Encounter - Kailee Koch MD - 05/23/2024 11:47 AM EST INR therapeutic. Continue current coumadin dosage and follow up in 2 weeks. [facility] Work Phone: 1(471) 500-251401-22-2025 Telephone encounter Note* Telephone Encounter - Emily [...] again. Emily Bustos LPN ROUTING TO PROVIDER DREDGE PUMP OPERATOR DR. KOCH. PT'S PROVIDER /TEAM IS OUT. Emily Bustos LPN [facility]01-20-2025 Telephone encounter Note* Telephone Encounter - Glenda Eastman RN - 05/21/2024 5:13 PM EST Patient called and notified. Glenda Eastman RN [facility]01-20-2025 Miscellaneous Notes* Telephone Encounter - Glenda Eastman RN - 05/21/2024 5:13 PM EST Patient called and notified. Glenda Eastman RN * Telephone Encounter - Glenda Eastman RN - 05/21/2024 5:12 PM EST ----- Message from Terrence Jane MD sent at 05/18/2024 5:37 PM EST ----- Normal Echo Please Inform the patient babak documented in this encounterMary[facility]01-[facility]25 Telephone encounter Note * Telephone Encounter - Glenda Eastman RN - 05/21/2024 5:12 PM EST ----- Message from Terrence Jane MD sent at 05/18/2024 5:37 PM EST ----- Normal Echo Please Inform the patient babak [facility]01-16-2025 Telephone encounter Note* Telephone Encounter - Krys Townsend RN - 05/17/2024 1:30 PM EST Called and left a detailed voicemail notifying Qasim from [facility] of providers message. Clinic phone number was left in case he had any questions. Pt called and is notified of providers results and instructions. Pt voices understanding. She states she will come back to the [facility]in Clinic when she doesn't have HH anymore. Updated Anticoag tracker. Krys Townsend RN [facility]01-16-2025 Miscellaneous Notes* Telephone Encounter - Krys Townsend RN - 05/17/2024 1:30 PM EST Called and left a detailed voicemail notifying Qasim from [facility] of providers message. Clinic phone number was left in case he had any questions. Pt called and is notified of providers results and instructions. Pt voices understanding. She states she will come back to the Coumadin Clinic when she doesn't have HH anymore. Updated Anticoag tracker. Krys Townsend, RN * Telephone Encounter - [...] - 05/16/2024 10:23 AM EST Qasim from [facility] calls and states that senior care is extending 1 time a week x 2 weeks. Qasim also reports that patient saw Dr. Roly Herrera Spool Carrier and patient was started on losartan/hctz 100-12.5 daily. Last INR: INR (POCT) 1.5 (ext) 05/16/2024 Current dose of coumadin is: 2 mg Daily. Last date of dose change: 04/23/2024 . Previous INR (date and result): 05/09/2024 1.9 Additional Clinical Information or narrative: no No changes in Diet. No signs/symptoms of bleeding or bruising. documented in this encounterMary[facility]01-[facility]25 Telephone encounter Note * Telephone Encounter - Kierra Santiago MD - 05/16/2024 7:18 PM EST Noted med adjustment per cardiology. How will patient get INR after HHN no longer following. Noted INR down again. Take 3 mg then increase to 2 mg daily except 3 mg on Sundays. INR next Tuesday [facility]01-15-2025 Telephone encounter Note* Telephone Encounter - Prerna Greenfield RN - 05/16/2024 10:23 AM EST Qasim from [facility] calls and states that senior care is extending 1 time a week x 2 weeks. Qasim also reports that patient saw Dr. Roly Herrera Spool Carrier and patient was started on losartan/hctz 100-12.5 daily. Last INR: INR (POCT) 1.5 (ext) 05/16/2024 Current dose of coumadin is: 2 mg Daily. Last date of dose change: 04/23/2024 . Previous INR (date and result): 05/09/2024 1.9 Additional Clinical Information or narrative: no No changes in Diet. No signs/symptoms of bleeding or bruising. [facility]01-14-2025 Telephone encounter Note* Telephone Encounter - Kierra Santiago MD - 05/15/2024 4:16 PM EST Noted [facility]01-14-2025 Miscellaneous Notes* Telephone Encounter - Kierra Santiago MD - 05/15/2024 4:16 PM EST Noted * Telephone Encounter - Daisy Howard LPN - 05/15/2024 3:35 PM EST PATIENT NOTIFIED OF SAME. Patient is planning on getting labs done in the next couple of week at [facility]. FYI:She has a follow up with vascular [...] Thank you. Cherelle Aguillon. documented in this encounterMarymount Hospital01-14-2025 Telephone encounter Note * Telephone Encounter - Daisy Howard LPN - 05/15/2024 3:35 PM EST PATIENT NOTIFIED OF SAME. Patient is planning on getting labs done in the next couple of week at [facility]. 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 [facility]01-14-[facility]25 Telephone encounter Note* Telephone Encounter - Anastasiia Colón APRN.CNS - 05/15/2024 9:19 AM EST noted, agree [facility]01-14-2025 Miscellaneous Notes* Telephone Encounter - Anastasiia Colón [...] calling: self Call patient at: at home [phone] (home) [phone] (cell) Was an appointment scheduled: No Closing statement: Symptom Call: Thank you for calling [facility], your call is very important. A nurse will call in approximately 2-4 hours during business hours. If this is an emergency, please contact 911. Cherelle Aguillon documented in this encounterMarymount Hospital01-13-2025 Telephone encounter Note * Telephone Encounter - [...] a day. Authorizing Provider: KIERRA SANTIAGO MD [facility]01-13-2025 Evaluation note* Diagnosis Onset Date Resolution Status [...] (gastroesophageal reflu x disease) acute June 19, 2 025 8:20am Anticoagulant long-term use chronic June 20, 2024 9:53am Aortic valve stenosis chronic Feb ruary 2024 9:53am Chronic a-fib chronic June 202024 9:53am Hyperlipidemia chronic June 022024 9:53am Peripheral vascular disease chronic June 20, 2024 9:53am [facility] Work Phone: 1(576) 771-800301-13-2025 Telephone encounter Note* Telephone Encounter - Noemi [...] Vascular appointment on 06/05/24. Noemi Cullen RN [facility]01-13-2025 Telephone encounter Note* Telephone Encounter - Cherelle [...] calling: self Call patient at: at home [phone] (home) [phone] (cell) Was an appointment scheduled: No Closing statement: Symptom Call: Thank you for calling [facility], your call is very important. A nurse will call in approximately 2-4 hours during business hours. If this is an emergency, please contact 911. Cherelle Aguillon [facility]01-13-2025 Telephone encounter Note* Telephone Encounter - Cherelle [...] 07/17/2024 Please advise. Thank you. Cherelle Aguillon. [facility]01-11-2025 Telephone encounter Note* Telephone Encounter - Nallely [...] 30 days. Protocols used: Blood Pressure - [id number] [facility]01-11-2025 Miscellaneous Notes* Telephone Encounter - Nallely An [...] 30 days. Protocols used: Blood Pressure - [id number] documented in this encounterMarymount Hospital01-08-2025 Telephone encounter Note * Telephone Encounter - Daisy Howard LPN - 05/09/2024 4:13 PM EST PATIENT NOTIFIED OF SAME. Message left on Qasim's voicemail with the below instructions. [facility]01-08-2025 Miscellaneous Notes* Telephone Encounter - Daisy Howard [...] 05/09/2024 11:05 AM EST Qasim, Nurse with [facility] calling with an update on patient. [...] . Noemi Cullen RN documented in this encounterMarymount Hospital01-08-2025 Telephone encounter Note * Telephone Encounter - [...] if they want to adjust meds otherwise. [facility]01-08-2025 Telephone encounter Note* Telephone Encounter - Noemi Cullen RN - 05/09/2024 11:05 AM EST Qasim, Nurse with [facility] calling with an update on patient. [...] any new orders, . Noemi Cullen RN [facility] History of Present illness Narrative* Mary Kay Delgado, DO - 05/08/2024 8:49 AM EST Images from the original note were not included. [facility] DEPARTMENT OF VASCULAR SURGERY OUTPATIENT VISIT DATE [...] she underwent revascularization with Dr. Rojas at [facility]. At that time she was also [...] by mouth two times a day. Biote [place] 3+CoQ10 --30 mg of CoQ10 ALLERGIES: ALLERGIES [...] imaging She would like to stay in [place] if possible for interventions, she will touch base with Dr. Rojas's office to see about carotid interventions and will notify the office. SIGNATURE: Mary Kay Delgado DO PATIENT NAME: Eri Pritchard DATE: May 08, 2024 TIME: 8:49 AM documented in this encounterMarymount Hospital01-03-2025 Telephone encounter Note * Telephone Encounter - Kierra Santiago MD - 05/04/2024 1:59 AM EST Noted. Kierra Santiago MD [facility]01-03-2025 Miscellaneous Notes* Telephone Encounter - Kierra Santiago MD - 05/04/2024 1:59 AM EST Noted. Kierra Santiago MD * Telephone Encounter - Zoey Lorenz LPN - 04/30/2024 2:15 PM EST Le with [facility] calls to report she has to discharge pt from because of insurance change. Pt will be re-admitted to 05/02/24 under an different insurance. Zoey Lorenz LPN documented in this encounterMarymount Hospital01-03-2025 Telephone encounter Note * Telephone Encounter - [...] once daily. Authorizing Provider: KIERRA SANTIAGO MD [facility]01-03-2025 Miscellaneous Notes* Telephone Encounter - Kierra Santiago [...] 03, 2024 4:05 PM documented in this encounterMarymount Hospital01-02-2025 Telephone encounter Note * Telephone Encounter - [...] Rios LPN May 03, 2024 4:12 PM [facility]01-02-2025 Telephone encounter Note* Telephone Encounter - Yarelis Jenkins - 05/03/2024 [...] does need all of these. Yarelis Garnica [facility] May 03, 2024 4:05 PM [facility]01-02-2025 Telephone encounter Note* Telephone Encounter - Bekah Vivas LPN - 05/03/2024 3:33 PM EST Qasim [facility] nurse was notified of providers message and verbalized understanding. [facility]01-02-2025 Miscellaneous Notes* Telephone Encounter - Bekah Vivas LPN - 05/03/2024 3:33 PM EST Qasim [facility] nurse was notified of providers message and verbalized understanding. * Telephone Encounter - Anastasiia Colón APRN.CNS - 05/03/2024 3:20 PM EST Monitor BP and let us know if remains elevated above 150 systolic * Telephone Encounter - Susan Rea RN - 05/03/2024 3:11 PM EST Qasim [facility] nurse calling in as pt changed [...] return call unless orders. documented in this encounterMarymount Hospital01-02-2025 Telephone encounter Note * Telephone Encounter - Anastasiia Colón APRN.AMBROSIO - 05/03/2024 3:20 PM EST Monitor BP and let us know if remains elevated above 150 systolic [facility]01-02-20[facility] Telephone encounter Note* Telephone Encounter - Susan Rea RN - 05/03/2024 3:11 PM EST Qasim [facility] nurse calling in as pt changed [...] No need to return call unless orders. [facility]01-02-[facility] Telephone encounter Note* Telephone Encounter - Krys Townsend RN - 05/03/2024 8:08 AM EST Called and left a detailed voicemail notifying Qasim from [facility] of providers message. Clinic phone number was left in case he had any questions. Krys Townsend RN [facility]01-02-2025 Miscellaneous Notes* Telephone Encounter - Krys Townsend RN - 05/03/2024 8:08 AM EST Called and left a detailed voicemail notifying Qasim from [facility] of providers message. Clinic phone number [...] - 05/01/2024 9:22 AM EST Qasim from [facility] calls with updated INR and BP. [...] bruising is getting smaller documented in this encounterMarymount [facility]12-31-2024 Telephone encounter Note * Telephone Encounter - Kierra Santiago MD - 05/01/2024 5:11 PM EST Continue present dosing Recheck in 1 week Continue to monitor BP on present meds. Make sure patient staying hydrated. May drink 2 cups of water or other noncaffeinated fluid under 5 minute to get SBP up if gets low again under 90. [facility]12-31-2024 Telephone encounter Note* Telephone Encounter - Prerna Greenfield RN - 05/01/2024 9:22 AM EST Qasim from [facility] calls with updated INR and BP. [...] Patient reports that bruising is getting smaller [facility]12-31-2024 Telephone encounter Note* Telephone Encounter - Bekah Vivas LPN - 05/01/2024 8:54 AM EST Form faxed back to [facility]12-31-2024 Miscellaneous Notes* Telephone Encounter - Bekah Vivas LPN - 05/01/2024 8:54 AM EST Form faxed back to [facility] * Telephone Encounter - Kierra Santiago [...] When form is completed, Fax form to [phone] Form has been forwarded to Physician Desk: Dr. Khadijah Eubanks MA documented in this encounterMarymount Hospital12-30-2024 Telephone encounter Note * Telephone Encounter - Kierra Santiago MD - 04/30/2024 11:56 PM EST Signed [facility]12-30-2024 Telephone encounter Note* Telephone Encounter - Bekah Vivas LPN - 04/30/2024 4:06 PM EST Forms at nurse's pod for signature [facility]12-30-2024 Telephone encounter Note* Telephone Encounter - Zoey Lorenz LPN - 04/30/2024 2:15 PM EST Le with [facility] calls to report she has to discharge pt from because of insurance change. Pt will be re-admitted to 05/02/24 under an different insurance. Zoey Lorenz LPN [facility]12-29-2024 Telephone encounter Note* Telephone Encounter - Kierra Santiago MD - 04/29/2024 6:48 PM EST Verify form faxed back [facility]12-27-2024 Telephone encounter Note* Telephone Encounter - Olga Lidia Eubanks MA - 04/27/2024 10:59 AM EST Type of form: Home Health Care Orders Form received via fax When form is completed, Fax form to [phone] Form has been forwarded to Physician Desk: Dr. Khadijah Eubanks MA [facility]12-24-2024 Telephone encounter Note* Telephone Encounter - Neomi Cullen RN - 04/24/2024 8:46 AM EST [...] has standing INR order. Noemi Cullen RN [facility]12-24-2024 Miscellaneous Notes* Telephone Encounter - Noemi Cullen [...] week. Pt has standing INR order. Noemi Cullen, RN * Telephone Encounter - Kierra Santiago [...] - 04/23/2024 11:26 AM EST Elissa with [facility] called and they saw pt today but did not do an INR. Pt has apt with Cardiology at the [facility] and Elissa will call and have pt go early and get INR done at the [facility] and it will then come to Dr. Santiago to review and advise. Watch for results. Emily Bustos LPN documented in this encounterMarymount Hospital12-23-2024 Telephone encounter Note * Telephone Encounter - [...] of the week. INR in 1 week. [facility]12-23-2024 Telephone encounter Note* Telephone Encounter - Romina Sawant LPN - 04/23/2024 5:47 PM EST Forwarded to Provider to review. Romina Sawant LPN [facility]12-23-2024 [facility]12-[facility] History of Present illness Narrative* Terrence Jane MD - 04/23/2024 2:56 PM EST Images from the original note were not included. Terrence Jane MD Interventional Cardiology [address] [place] [address] [phone] Chief Complaint Patient presents with: New: was at admitted at [facility]- dx CHF and a-fib HISTORY OF PRESENT [...] by mouth two times a day. Biote [place] 3+CoQ10 --30 mg of CoQ10 oxybutynin ER [...] BP Position BP Site BP Cuff Size 04/23/241433 -- -- 178/56 69 Sitting Right Arm [...] to correct any errors. documented in this encounterMarymount Hospital12-23-2024 Telephone encounter Note * Telephone Encounter - Emily Bustos LPN - 04/23/2024 11:26 AM EST Elissa with [facility] called and they saw pt today but did not do an INR. Pt has apt with Cardiology at the [facility] and Elissa will call and have pt go early and get INR done at the [facility] and it will then come to Dr. Santiago to review and advise. Watch for results. Emily Bustos LPN [facility]12-20-2024 Telephone encounter Note* Telephone Encounter - Daisy Howard LPN - 04/20/2024 9:13 AM EST [facility] and patient made aware. This encounter has been faxed to [facility]. [facility]12-20-2024 Miscellaneous Notes* Telephone Encounter - Daisy Howard LPN - 04/20/2024 9:13 AM EST [facility] and patient made aware. This encounter has been faxed to [facility]. * Telephone Encounter - Kierra Santiago [...] patient started 2 mg dose this morning. PerAnastasiia's OV notes patient was to hold until INR drawn today. Last date of dose change: 04/16/2024. Previous INR (date and result): 5.1 EXT on 04/16/2024 Additional Clinical Information or narrative: yes: No dietary changes, antibiotics, unusual bleeding or bruising. [facility] requests that Qasim LEMON CM be contacted with further orders at [phone]. documented in this encounterMarymount Hospital12-19-2024 Telephone encounter Note * Telephone Encounter - Kierra Santiago MD - 04/19/2024 6:00 PM EST Noted patient already started taking 2 mg dose yesterday. Okay 2 mg daily dose for now Recheck next Tuesday. [facility]12-18-2024 Telephone encounter Note* Telephone Encounter - Aleisha [...] CM be contacted with further orders at [phone]. [facility]12-17-2024 Instructions* Patient Instructions* Anastasiia Colón APRN.CNS - [...] see him Please make an appointment a [facility] documented in this encounterMarymount Hospital12-17-2024 [facility]Hol[facility]12-17-[facility]24 History of Present illness Narrative* Anastasiia [...] for hospital discharge follow-up visit. She has [facility]. She was admitted to [facility] March 19 through April 05. [facility] and wet gangrene [...] rehab for debility. Discharged to home with [facility] home care. Today reports eating and drinking normally. No bowel or bladder complaints. She has [place] [facility] care coming out to her home. 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 Blanca. She reports no upcoming appointment [...] by mouth two times a day. Biote [place] 3+CoQ10 --30 mg of CoQ10 cholecalciferol (VITAMIN [...] Z89.431 Healing well. To follow up with duralumin metalworker. 3. S/P femoral-popliteal bypass surgery - ICD9: [...] see him Please make an appointment a [facility] 3 mo follow up Anastasiia Colón APRN.CNS 6 mo follow up MD Anastasiia Wilson APRN.CNS Medical Decision Making: Problems: Moderate: Acute illness with systemic symptoms and 1+ chronic illnesses with change Data: Unique source(s) for external note(s) reviewed: 1 Unique test result(s) reviewed: 3+ Risk: Moderate: Drug management Medical Decision Making Level: 4 - Moderate documented in this encounterMarymount Hospital12-16-2024 Telephone encounter Note * Telephone Encounter - Kierra Santiago MD - 04/16/2024 11:33 PM EST Agreeable with POC [facility]12-16-2024 Miscellaneous Notes* Telephone Encounter - Kierra Santiago MD - 04/16/2024 11:33 PM EST Agreeable with POC * Telephone Encounter - Noemi Cullen RN - 04/16/2024 2:41 PM EST Jaylan with [facility] calling with patient's Physical Therapy plan of care. PT will see patient 1x/week for 3 weeks for functional mobility training. No call back needed if provider agreeable with POC. Thank you. documented in this encounterMarymount Hospital12-16-2024 Telephone encounter Note * Telephone Encounter - Noemi Cullen RN - 04/16/2024 2:41 PM EST Jaylan with [facility] calling with patient's Physical Therapy plan of care. PT will see patient 1x/week for 3 weeks for functional mobility training. No call back needed if provider agreeable with POC. Thank you. [facility]12-16-2024 Telephone encounter Note* Telephone Encounter - Aleisha Shaffer RN - 04/16/2024 10:55 AM EST Call placed to patient and Qasim with [facility]. Spoke to both with verbalized understanding. Aleisha Shaffer RN [facility]12-16-2024 Miscellaneous Notes* Telephone Encounter - Aleisha Shaffer RN - 04/16/2024 10:55 AM EST Call placed to patient and Qasim with [facility]. Spoke to both with verbalized understanding. [...] No missed doses or dietary changes. Qasim reportsthat patient is holding Coumadin today and he will be out to see patient again on Tuesday if another INR is needed at that time. Patient also has follow up with Anastasiia tomorrow 04/17. Call back number is [phone]. Aleisha Shaffer RN documented in this encounterMarymount Hospital12-16-2024 Telephone encounter Note * Telephone Encounter - Kierra Santiago MD - 04/16/2024 10:40 AM EST Hold today and tomorrow then get INR Tuesday as noted. Can discuss with Anastasiia tomorrow about prior coumadin dosing [facility]12-16-2024 Telephone encounter Note* Telephone Encounter - Aleisha Shaffer RN - 04/16/2024 9:52 AM EST Last INR: INR (POCT) 5.1 EXT 04/16/2024 Current dose of coumadin is: Coumadin 4 mg daily. Last date of dose change: 02/27/2024. Previous INR (date and result): 04/09/2024 1.7 Additional Clinical Information or narrative: yes: No missed doses or dietary changes. Qasim reportsthat patient is holding Coumadin today and he will be out to see patient again on Wednesday if another INR is needed at that time. Patient also has follow up with Anastasiia tomorrow 04/17. Call back number is [phone]. Aleisha Shaffer RN [facility]12-13-2024 Telephone encounter Note* Telephone Encounter - Aleisha Shaffer RN - 04/13/2024 4:29 PM EST Call placed to Elli with [facility] and notified of below message with understanding. Aleisha Shaffer RN [facility]12-13-2024 Miscellaneous Notes* Telephone Encounter - Aleisha Shaffer RN - 04/13/2024 4:29 PM EST Call placed to Elli with [facility] and notified of below message with understanding. Aleisha Shaffer RN * Telephone Encounter - Anastasiia Colón APRN.CNS - 04/13/2024 12:39 PM EST [facility] * Telephone Encounter - Aleisha Shaffer RN - 04/13/2024 9:08 AM EST Elli with [facility] calls to request a delay in start of care for PT. Elli would like to move the visit to next week d/t patient having an appointment today. Elli requests a call back at [phone]. Aleisha Shaffer RN documented in this encounterMarymount Hospital12-13-2024 Telephone encounter Note * Telephone Encounter - Anastasiia Colón APRN.CNS - 04/13/2024 12:39 PM EST [place] [facility]12-13-20[facility] Telephone encounter Note* Telephone Encounter - Aleisha Shaffer RN - 04/13/2024 9:08 AM EST Elli with [facility] calls to request a delay in start of care for PT. Elli would like to move the visit to next week d/t patient having an appointment today. Elli requests a call back at [phone]. Aleisha Shaffer RN [facility]12-12-2024 Telephone encounter Note* Telephone Encounter - Bekah Vivas LPN - 04/12/2024 9:37 AM EST Attempted to contact Moisés nurse with [facility] but no answer. Left providers message on secure voicemail and ask to call office and ask to speak. [facility]12-12-2024 Miscellaneous Notes* Telephone Encounter - Bekah Vivas LPN - 04/12/2024 9:37 AM EST Attempted to contact Moisés nurse with [facility] but no answer. Left providers message [...] 04/11/2024 9:26 AM EST Moisés nurse with [facility] calling, asking if PCP saw that [...] with instructions. Please advise. documented in this encounterMarymount Hospital12-12-2024 Telephone encounter Note * Telephone Encounter - [...] that Qasim will recheck INR on Tuesday. [facility]12-11-2024 Telephone encounter Note* Telephone Encounter - Kierra [...] mg daily and recheck INR next Tuesday [facility]12-11-2024 Telephone encounter Note* Telephone Encounter - Romina Sawant LPN - 04/11/2024 5:58 PM EST Message copied and given to Provider to address. Romina Sawant LPN [facility]12-11-2024 Telephone encounter Note* Telephone Encounter - Stacia Bruce LPN - 04/11/2024 9:26 AM EST Moisés nurse with [facility] calling, asking if PCP saw that [...] and the patient with instructions. Please advise. [facility]12-09-2024 Telephone encounter Note* Telephone Encounter - Anastasiia Colón APRN.CNS - 04/09/2024 4:07 PM EST [place] [facility]. Should take medications as ordered at discharge. [facility]12-09-2024 Miscellaneous Notes* Telephone Encounter - Anastasiia Colón APRN.CNS - 04/09/2024 4:07 PM EST [place] [facility]. Should take medications as ordered at discharge. * Telephone Encounter - Susan Rea RN - 04/09/2024 3:39 PM EST Moisés nurse from [facility] calling as he saw pt today [...] Warfarin and Plavix. Per med list in [facility], pt has two magnesiums listed. Moisés states [...] problem or any changes. documented in this encounterMarymount Hospital12-09-2024 Telephone encounter Note * Telephone Encounter - Susan Rea RN - 04/09/2024 3:39 PM EST Moisés nurse from [facility] calling as he saw pt today to [...] Warfarin and Plavix. Per med list in epic, pt has two magnesiums listed. Moisés states [...] back unless a problem or any changes. [facility]12-06-2024 [facility]Holzer [facility]12-06-2024 History of Present illness Narrative* Bekah Vivas LPN - 04/06/2024 10:03 AM EST Images from the original note were not included. TRANSITION CARE MANAGEMENT (TCM) INITIAL CONTACT Online Marketing Manager Outreach Provider Action/FYI: Spoke with patient and she is currently still in [facility] and states will be discharged on 04/08/24. Initial contact with patient post discharge, spoke to patient. Patient identified by name and . TRANSITION CARE MANAGEMENT INITIAL OUTREACH DOCUMENTATION: No data to display SUMMARY: -Pt discharged from [facility] on . -Admitted for: Right Transmetatarsal Amputation [...] from recent hospitalization: Yes documented in this encounterMarymount Hospital12-05-2024 [facility]12-05-2024 Telephone encounter Note* Telephone Encounter - Bekah Vivas LPN - 04/05/2024 4:51 PM EST No answer. Left providers message on confidential voice mail [facility]12-05-2024 Miscellaneous Notes* Telephone Encounter - Bekah Vivas LPN - 04/05/2024 4:51 PM EST No answer. Left providers message on confidential voice mail * Telephone Encounter - Anastasiia Colón APRN.CNS - 04/05/2024 4:21 PM EST [facility] * Telephone Encounter - Noemi Cullen RN - 04/05/2024 11:48 AM EST Le with [facility] calling and states patient will be discharging from [facility] this Tuesday. Requesting verbal order for patient for Home [facility], PT and OT. Asking if provider will sign and follow for these orders. Call Le with verbal order at [phone]. Thank you. documented in this encounterMarymount Hospital12-05-2024 Telephone encounter Note * Telephone Encounter - Anastasiia Colón APRN.CNS - 04/05/2024 4:21 PM EST [place] [facility]12-05-[facility] Telephone encounter Note* Telephone Encounter - Noemi Cullen RN - 04/05/2024 11:48 AM EST Le with [facility] calling and states patient will be discharging from [facility] this Tuesday. Requesting verbal order for patient for Home [facility], PT and OT. Asking if provider will sign and follow for these orders. Call Le with verbal order at [phone]. Thank you. [facility]12-04-2024 [facility]11-21-2024 [facility]11-18-2024 Evaluation note* Diagnosis Onset Date Resolution Status Admit Date Allergic rhinitis acute 2023 6:10pm Anemia acute March 19, 2024 6:10pm Atrial fibrillation acute 2023 6:10pm Debility acute March 19, 2024 6:10pm Diabetes mellitus acute 2023 6:10pm Essential (primary) hypertension acute March 19 024 6:10pm GERD (gastroesophageal reflu x disease) acute March 19 024 6:10pm HFrEF (heart failure with reduced ejection fraction) acute 2023 6:10pm Muscle spasm acute March 6:10pm Neuropathic pain acute March 19, 2024 6:10pm Overactive bladder acute b er 2023 6:10pm Hyperlipidemia chronic March 022023 6:10pm Peripheral vascular disease chronic March 19, 2024 6:10pm 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 March 19, 2024 6:10pm Diabetic wet gangrene of the foot resolved March 19 024 6:10pm Hematoma of lower leg resolved Mar 6:10pm Osteomyelitis of ankle or fo ot, right, acute resolved March 19 2 024 6:10pm Acute osteomyelitis of right [...] (gastroesophageal reflu x disease) acute June 19 025 8:20am Anticoagulant long-term use chronic June 20, 2024 9:53am Aortic valve stenosis chronic Fe ruary 2024 9:53am Chronic a-fib chronic June 202024 9:53am Hyperlipidemia chronic June 022024 9:53am Peripheral vascular disease chronic June 20, 2024 9:53am [facility] Work Phone: 1(374) 538-595711-18-2024 [facility]11-18-2024 [facility]11-08-2024 Telephone encounter Note* Telephone Encounter - Kierra Santiago MD - 03/09/2024 11:52 AM EST Noted. Kierra Santiago MD [facility]11-08-2024 Miscellaneous Notes* Telephone Encounter - Kierra Santiago [...] let pcp know, pt was admitted to [facility] yesterday for osteomyelitis in foot, and [facility] will probably amputate some toes. * Telephone [...] - 03/07/2024 3:56 PM EST Moisés with [facility] calling to report that their system shows a [id number] caution listed for patient's sertraline and warfarin. No call back needed to [facility], unless provider has further orders or recommendation. Noemi Cullen RN documented in this encounterMarymount Hospital11-08-2024 Telephone encounter Note * Telephone Encounter - Kisha Irizarry RN - 03/09/2024 9:09 AM EST Phoned Moisés, and given provider's message below with verbalized understanding. Moisés reports pt has only been on the sertraline for 1 week and Moisés has already noticed an improvement - better spirits. Moisés will monitor for now. Moisés wanted to let pcp know, pt was admitted to [facility] yesterday for osteomyelitis in foot, and [facility] will probably amputate some toes. [facility]11-07-2024 [facility]11-06-2024 Telephone encounter Note* Telephone Encounter [...] other SSRI meds (they have slight risk). [facility]11-06-2024 Telephone encounter Note* Telephone Encounter - Noemi Cullen RN - 03/07/2024 3:56 PM EST Moisés with [facility] calling to report that their system shows a [id number] caution listed for patient's sertraline and warfarin. No call back needed to Moisés, unless provider has further orders or recommendation. Noemi Cullen RN [facility]11-02-2024 Telephone encounter Note* Telephone Encounter - Noemi Cullen RN - 03/03/2024 8:32 AM EDT Patient returned call and given provider's message below and patient verbalized understanding. Agreeable to plan. Flaco Cullen RN [facility] Miscellaneous Notes* Telephone Encounter - Noemi Cullen [...] a detailed voicemail notifying Qasim LEMON with [facility] of providers message. Clinic phone number was [...] the least side effects. Please send to [facility] in [place], Pt states she will be going there [...] 7 days. Authorizing Provider: KIERRA SANTIAGO MD * Telephone Encounter - Aleisha Shaffer RN - 02/29/2024 12:17 PM EDT Qasim RN with [facility] calls to notify provider that patient was [...] provider would refill oxycodone prescription ordered from [facility] as she is having quite a bit of pain with the foot. Please review and advise, Aleisha Shaffer RN documented in this encounterMarymount Hospital11-01-2024 Telephone encounter Note * Telephone Encounter - [...] once daily. Authorizing Provider: KIERRA SANTIAGO MD [facility]11-01-2024 Telephone encounter Note* Telephone Encounter - Krys Townsend RN - 03/02/2024 9:52 AM EDT Called and left a detailed voicemail notifying Qasim LEMON with [facility] of providers message. Clinic phone number was [...] the least side effects. Please send to [facility] in [place], Pt states she will be going there today. Pt declined moving her appointment withAnastasiia Colón up sooner. Krys Townsend RN [facility]10-31-2024 Telephone encounter Note* Telephone Encounter - Kierra [...] such as fluoxetine or sertraline or paroxetine. [facility]10-31-2024 Telephone encounter Note* Telephone Encounter - Bekah [...] for anxiety as well as the oxycodone [facility]10-31-2024 Telephone encounter Note* Telephone Encounter - Kierra Santiago MD - 03/01/2024 4:00 PM EDT The following approved medication requests have been transmitted electronically. Requested Prescriptions Signed Prescriptions Disp Refills oxyCODONE IR (ROXICODONE) 5 mg immediate release tablet 42 tablet 0 Sig: Take 1 tablet by mouth every 4 hours as needed for pain for up to 7 days. Authorizing Provider: KIERRA SANTIAGO MD [facility]10-31-2024 NoteHNO ID: [id number] Author: ANASTASIIA COLÓN APRN.CASING MATERIAL WEIGHER Service: ? Author Type: Nurse Specialist Type: Progress Notes Filed: 03/01/2024 16:26 Note Text: Recommend stop lovenox injections. Continue with coumadin 4mg daily and recheck in 1 weekHolzer Hospital10-31-2024 History of Present illness Narrative* Anastasiia Colón APRN.CNS - 03/01/2024 12:09 PM EDT Recommend stop lovenox injections. Continue with coumadin 4mg daily and recheck in 1 week * Iwona Donato RN - 03/01/2024 11:07 AM EDT patient had inr completed at [facility] patients inr is 3.0 (patients inr range is 2.0-3.0) patient is currently taking lovenox twice daily and 4mg coumadin daily patients last dose change was on 02/21/24 due to [facility] discharge (previous dose was 1mg Tue and 2mg all other days) patient has [...] not agree with recommendation documented in this encounterMarymount Hospital10-31-2024 NoteHolzer Hospital10-30-2024 Telephone encounter Note* Telephone Encounter - Aleisha Shaffer RN - 02/29/2024 12:17 PM EDT Qasim RN with [facility] calls to notify provider that patient was [...] provider would refill oxycodone prescription ordered from [facility] as she is having quite a bit of pain with the foot. Please review and advise, Aleisha Shaffer RN [facility]10-28-2024 NoteHNO ID: [id number] Author: IWONA DONATO RN Service: ? Author Type: Registered Nurse Type: Progress Notes Filed: 02/27/2024 16:44 Note Text: pcp agrees with informationHolzer Hospital10-28-2024 History of Present illness Narrative* Iwona Donato RN - 02/27/2024 4:44 PM EDT pcp agrees with information * Iwona Donato RN - 02/27/2024 10:20 AM EDT patient had inr completed at [facility] patients inr is 1.4 (patients inr range [...] not agree with recommendation documented in this encounterMarymount Hospital10-28-2024 NoteHolzer [facility]10-25-2024 Telephone encounter Note* Telephone Encounter - Bekah Vivas LPN - 02/24/2024 4:23 PM EDT Patient notified of providers message and verbalized understanding. [facility]10-25-2024 Miscellaneous Notes* Telephone Encounter - Bekah Vivas [...] a week or 2. documented in this encounterMarymount Hospital10-25-2024 Telephone encounter Note * Telephone Encounter - Bekah Vivas LPN - 02/24/2024 4:21 PM EDT ----- Message from Anastasiia Sevilla APRN.CNS sent at 02/24/2024 4:15 PM EDT ----- Please let her know that lab work yesterday showed that she is dehydrated. Recommend decreasing lasix from twice a day dosing to once daily dosing and recheck metabolic panel in a week or 2. [facility] Telephone encounter Note* Telephone Encounter - Bekah Vivas LPN - 02/23/2024 5:12 PM EDT Client services was not able to add INR to labs already drawn. Spoke with patient and she stated INR was drawn at the lab but they were holding onto it to see if it was going to be done at coumadin clinic. central supply technician that [facility] was gone and could not confirm if this was done. Patient was given coumadin instructions and verbalized understanding. Coumadin clinice for Tuesday was schedules [facility]10-24-2024 Miscellaneous Notes* Telephone Encounter - Bekah Vivas LPN - 02/23/2024 5:12 PM EDT Client services was not able to add INR to labs already drawn. Spoke with patient and she stated INR was drawn at the lab but they were holding onto it to see if it was going to be done at coumadin clinic. central supply technician that [facility] was gone and [...] this was not scheduled. documented in this encounterMarymount Hospital10-[facility]-2024 Telephone encounter Note * Telephone Encounter - [...] Tuesday next week, this was not scheduled. [facility] History of Present illness Narrative* Anastasiia Colón APRN.CNS - 02/23/2024 9:00 AM EDT SUBJECTIVE: Pneumococcal [...] discharge follow-up visit. She was admitted to [facility] for right foot cellulitis right lower extremity ischemia. She underwent right femoropopliteal bypass with Dr. Rojas. She was admitted to PCU with debility. Admitted for rehabilitation and strengthening prior to discharge home with . Discharged home with her on February 08, 2024. She has home health care PT OT senior care STN wheelchair. She was discharged on both [...] a follow-up appointment with Dr. Blanca her duralumin metalworker. She needs to reschedule appointment with Dr. [...] by mouth two times a day. Biote [place] 3+CoQ10 --30 mg of CoQ10 tiZANidine (ZANAFLEX) [...] Abs Lymph 1.00 - 4.00 k/uL 1.87 Warren% % 10.7 Abs Warren <0.87 k/uL 0.67 Eosin% % 1.8 Abs [...] Pressure injury of right heel, stage 2 ([facility]) - ICD9: 707.07, 707.22, ICD10: L89.612 Notes this is healing well 8. Factor V deficiency ([facility]) - ICD9: 286.3, ICD10: D68.2 Currently on enoxaparin only. Will check INR today and resume Coumadin. 9. Type 2 diabetes mellitus with diabetic polyneuropathy, without long-term current use of insulin ([facility]) - ICD9: 250.60, 357.2, ICD10: E11.42 Currently controlled continue current treatment unchanged. Continue to monitor. - COMPREHENSIVE METABOLIC PANEL 10. Factor 5 Leiden mutation, heterozygous ([facility]) - ICD9: 289.81, ICD10: D68.51 - PROTHROMBIN TIME Anastasiia Colón APRN.CNS Medical Decision Making: Problems: Moderate: Acute illness with systemic symptoms Data: Unique test result(s) reviewed: 3+ Unique test(s) ordered: 1 Risk: Moderate: Drug management Medical Decision Making Level: 4 - Moderate documented in this encounterMarymount Hospital10-24-2024 [facility] Telephone encounter Note* Telephone Encounter - Sheryl Reyes APRN.CNP - 02/13/2024 1:56 PM EDT Noted and agree [facility]10-14-2024 Miscellaneous Notes* Telephone Encounter - Sheryl Reyes APRN.CNP - 02/13/2024 1:56 PM EDT Noted and agree * Telephone Encounter - Kisha Irizarry RN - 02/13/2024 1:36 PM EDT Lisa [facility]- reporting PT POC: will see patient 2 x's week for 3 weeks, for functional and mobility training. documented in this encounterMarymount Hospital10-14-2024 Telephone encounter Note * Telephone Encounter - Kisha Irizarry RN - 02/13/2024 1:36 PM EDT Jaylan- [facility]- reporting PT POC: will see patient 2 x's week for 3 weeks, for functional and mobility training. [facility]10-14-2024 Telephone encounter Note* Telephone Encounter - Kierra Santiago MD - 02/13/2024 1:28 PM EDT Noted. Kierra Santiago MD [facility]10-14-2024 Miscellaneous Notes* Telephone Encounter - Kierra Santiago [...] - 02/09/2024 3:46 PM EDT Moisés [facility] called in and reports he [...] on the medication list. documented in this encounterMarymount Hospital10-10-2024 Telephone encounter Note * Telephone Encounter - Aleisha Shaffer RN - 02/09/2024 3:59 PM EDT Qasim calls back to let provider know that patient declined OT/ST services and will only be receiving SN/PT. Aleisha Shaffer RN [facility]10-10-2024 Telephone encounter Note* Telephone Encounter - Krys Townsend RN - 02/09/2024 3:46 PM EDT Moisés [facility] called in and reports he [...] months. Updated this on the medication list. [facility]10-09-2024 Telephone encounter Note* Telephone Encounter - Daisy Howard LPN - 02/08/2024 1:11 PM EDT Le aware of same. [facility]10-09-2024 Miscellaneous Notes* Telephone Encounter - Daisy Howard LPN - 02/08/2024 1:11 PM EDT Le aware of same. * Telephone Encounter - Sheryl Reyes APRN.CNP - 02/08/2024 12:54 PM EDT Yes, we will follow, please return call. Thanks * Telephone Encounter - Prerna Greenfield RN - 02/08/2024 11:16 AM EDT Le from [facility] calls and states that patient is being discharged from TCU on 02/08/2024 with the diagnosis of femoral bypass. Le asking if provider willing to follow patient with orders for senior care, physical therapy, occupational therapy, and speech therapy. If agreeable please give Le a call back [phone]. Thank you, Prerna Greenfield RN documented in this encounterMarymount Hospital10-09-2024 Telephone encounter Note * Telephone Encounter - Sheryl Reyes APRN.CNP - 02/08/2024 12:54 PM EDT Yes, we will follow, please return call. Thanks [facility]10-09-2024 Telephone encounter Note* Telephone Encounter - Prerna Greenfield RN - 02/08/2024 11:16 AM EDT Le from [facility] calls and states that patient is being discharged from TCU on 02/08/2024 with the diagnosis of femoral bypass. Le asking if provider willing to follow patient with orders for senior care, physical therapy, occupational therapy, and speech therapy. If agreeable please give Le a call back [phone]. Thank you, Prerna Greenfield RN [facility]10-02-2024 [facility]09-27-2024 [facility]09-27-2024 [facility]09-20-2024 Note [facility]14[facility]09-14-[facility] History of Present illness Narrative* Nancy Albert RN - 01/14/2024 2:48 PM EDT Transitional Care Management (TCM) Follow-Up Note PCP Update / Actionable Items N/A - No specialty updates needed Patient Source: Dlm-qk-Tzqykdg (OON) Discharge Outreach Summary: Pt reports she had a new issue yesterday - water blisters on her right toes that became infected. Was seen for evaluation 01/13 at [facility] and rx antibiotics for 10 days. Advised pt will continue to follow up with her to see if int med f/u appt reevaluation needed. Pt states Blood glucose this Am was 123 before breakfast. Patient discharged from [facility] Discharge date: 01/05/24 Admitted for: SOB, pneumonia [...] 14, 2024 2:55 PM documented in this encounterMarymount Hospital09-13-2024 [facility]09-13-[facility] History of Present illness Narrative* Nataliia [...] [facility]. Patient was okay with this care plan. Patient's will take her now. documented in this encounterMarymount Hospital09-11-2024 Instructions* Patient Instructions* Kierra Santiago MD - 01/11/2024 5:56 PM EDT documented in this encounterMarymount Hospital09-11-2024 History of Present illness Narrative* Kierra Santiago [...] old lady here today for lady for [facility] hospital follow up appointment for review of medical conditions. Patient is an 83-year-old female here for [facility] hospital follow up appointment-- presenting with footpain [...] 133. She has anupcoming appointment with a cloth dyeing range tender on 01/23. PAST MEDICAL HISTORY No date: [...] by mouth two times a day. Biote [place] 3+CoQ10 --30 mg of CoQ10 cholecalciferol (VITAMIN [...] daily, Spironolactone 12.5 mg daily. - Discontinued jdlg-xwb-izrtkfx potassium supplementation. - Follow-up with cardiology scheduled for 01/23 to monitor potassium levels and adjust medications as needed. - Advised patient on fluid and salt intake management. # Type 2 diabetes mellitus with diabetic polyneuropathy, without long-term current use of insulin ([facility]) (E11.42) - Blood glucose levels well-controlled; recent reading 133 mg/dL. - Continue current medication regimen. - Patient monitoring blood glucose, weight, and blood pressure daily. # Hypokalemia (E87.6) - Discontinued dnum-opy-tkmazfe potassium supplementation. - Monitoring potassium levels with [...] swelling. Kierra Santiago MD documented in this encounterMarymount Hospital09-11-2024 [facility]09-07-2024 [facility]09-06-2024 [facility]09-06-20[facility] History of Present illness Narrative* Kierra [...] to the ER or be seen [facility] Referral Source of Stratification: [facility] Hospital Admission Status: Discharged Readmission Risk Score: n/a Patient's zip code: [address] Is zip code within program service area: No Patient meets program referral criteria: No Patient does not qualify for High Risk TCM Home Visit program due to: Readmission Risk Score does not meet criteria Disposition: Patient does not qualify [facility], will provide TCM outreach follow-up for 30-days Patient Source: Z[facility]-Wzar[facility] (OON) Discharge Outreach Summary: as above Patient discharged from [facility] Discharge date: 01/05/24 Admitted for: SOB, pneumonia Readmission Risk: n/a Value-Based Contract: Marley GOVEA Contact: Contact made with patient: Yes Hi, my name is Nancy Albert RN and I am calling from the [facility] on behalf of your Primary Care Provider, [...] like to speak with a social work steam clean machine operator to help give you support for any [...] I will send your request to a manufacturing scheduler who will contact and assist you with [...] 06, 2024 10:55 AM documented in this encounterMarymount Hospital09-06-2024 [facility]09-05-2024 [facility]09-05-2024 History of Present illness Narrative* Iwona Donato RN - 01/05/2024 9:36 AM EDT patient had inr completed at [facility] patients inr is 1.9 (patients inr range is 2.0-3.0) patient is currently taking 1mg Wed and 2mg all other days patients last dose change was on 06/02/23 due to a low level of 1.6 (dose at that time was 1mg Tues,Thurs and 2mg all other days) patient has had no changes in medication and patient missed 2 doses due to was in [facility] and no changein diet Advised patient to [...] due to missed does documented in this encounterMarymount Hospital09-03-2024 [facility]08-31-2024 [facility]08-31-2024 History of Present illness Narrative* Saray [...] EMS, her will take her now to [facility]. documented in this encounterMarymount Hospital08-30-2024 Telephone encounter Note * Telephone Encounter - Raul Andrade MA - 12/30/2023 10:44 AM EDT Can this be changed to 75 mg tab BID instead of 50 mg 1.5 tabs BID? [facility]08-30-2024 Miscellaneous Notes* Telephone Encounter - Raul Andrade [...] 30, 2023 9:08 AM documented in this encounterMarymount Hospital08-30-2024 Telephone encounter Note * Telephone Encounter - [...] María Petty December 30, 2023 9:08 AM [facility]08-27-2024 Telephone encounter Note* Telephone Encounter - Romina Sawant LPN - 12/27/2023 10:00 AM EDT Patient aware. Romina Sawant LPN [facility]08-27-2024 Miscellaneous Notes* Telephone Encounter - Romina Sawant LPN - 12/27/2023 10:00 AM EDT Patient aware. Romina Sawant LPN * Telephone Encounter - Kierra Santiago MD - 12/27/2023 9:58 AM EDT Filed * Telephone Encounter - Romina Sawant LPN - 12/27/2023 9:45 AM EDT Patient at , fasting to have labwork drawn for OV on 01/11/24. No orders in [facility] at this time. Will have Provider review and file orders if needed. Call ext [phone] to update Briggitte-PSS when completed. Romina Sawant LPN documented in this encounterMarymount Hospital08-27-2024 Telephone encounter Note * Telephone Encounter - Kierra Santiago MD - 12/27/2023 9:58 AM EDT Filed [facility]08-27-2024 Telephone encounter Note* Telephone Encounter - Romina Sawant LPN - 12/27/2023 9:45 AM EDT Patient at , fasting to have labwork drawn for OV on 01/11/24. No orders in [facility] at this time. Will have Provider review and file orders if needed. Call ext [phone] to update [facility]-PSS when completed. Romina Sawant LPN [facility]08-12-2024 Telephone encounter Note* Telephone Encounter - Saray [...] if any worsening symptoms go to ER [facility]08-12-2024 Miscellaneous Notes* Telephone Encounter - Saray Acosta [...] symptoms go to ER documented in this encounterMarymount Hospital08-12-2024 History of Present illness Narrative* Praful Ledesma [...] PATIENT PRESENTS WITH AN IMPLANTABLE OR ATTACHED CELL STRIPPER: No RADIOLOGY DEPARTMENT: General X-ray: Exam(s) Completed: Chest X-Ray PERIPHERAL IV DATA: Not applicable SIGNED BY: RT Velvet(R) December 12, 2023 10:09 AM documented in this encounterMarymount Hospital08-12-2024 [facility]08-12-2024 Telephone encounter Note* Telephone Encounter - Judy Puri MA - 12/12/2023 7:24 AM EDT Patient given results and verbalized understanding of instructions given. Judy Puri MA [facility]08-12-2024 Miscellaneous Notes* Telephone Encounter - Judy Puri MA - 12/12/2023 7:24 AM EDT Patient given results and verbalized understanding of instructions given. Judy Puri MA * Telephone Encounter - Saray Acosta PA - 12/12/2023 7:05 AM EDT Negative for COVID flu RSV documented in this encounterMarymount Hospital08-12-2024 Telephone encounter Note * Telephone Encounter - Saray Acosta PA - 12/12/2023 7:05 AM EDT Negative for COVID flu RSV [facility] Work Phone: 1(661) 481-557508-11-2024 NoteHolzer Hospital08-11-2024 History of Present illness Narrative* Saray Acosta PA - 12/11/2023 10:09 AM EDT This note was created using Hitpost. Subjective Eri Pritchard is a 83 year [...] ER evaluation. COLTON Abel documented in this encounterMarymount Hospital08-08-2024 NoteHNO ID: [id number] Author: IWONA DONATO RN Service: ? Author Type: Registered Nurse Type: Progress Notes Filed: 12/08/2023 15:38 Note Text: pcp agrees with informationHolzer Hospital08-08-2024 History of Present illness Narrative* Iwona Donato RN - 12/08/2023 3:37 PM EDT pcp agrees with information * Iwona Donato RN - 12/08/2023 11:48 AM EDT patient had inr completed at [facility] patients inr is 2.0 (patients inr range [...] for follow up INR. documented in this encounterMarymount Hospital08-08-2024 [facility]Hol[facility]07-31-2024 History of Present illness Narrative* Cyn [...] PATIENT PRESENTS WITH AN IMPLANTABLE OR ATTACHED CELL STRIPPER: No RADIOLOGY DEPARTMENT: Ultrasound PERIPHERAL IV DATA: Not applicable SIGNED BY: Cyn Romo RDMS November 30, 2023 8:18 AM documented in this encounterMarymount Hospital07-31-2024 [facility]Hol[facility]07-19-2024 Instructions* Patient Instructions* Joelle Barreto APRN.PET AMBASSADOR - 11/18/2023 11:36 AM EDT [facility] [place] [id number] [facility] [address] [facility] [id number] MEDITERRANEAN DIET The Mediterranean diet blends the basics of healthy eating with the traditional flavors and cookingmethods of the Mediterranean. Interest in the Mediterranean diet began in the 1960's with the observation that coronary heart disease caused fewer deaths in the Mediterranean countries, such as [place] and [place], than in the [place] and northern [place]. [...] based on the traditional cuisines of [place], [place], and other countries that border the Mediterranean Sea. Plant based foods, such as whole grains, vegetables, legumes, fruits, nuts, seeds, herbs and spices, are the foundation of the diet. [place] oil is the main source of added fat. Fish, seafood, dairy and poultry are included in moderation. Red meat and sweets are eaten only occasionally. Healthy fast instead of unhealthy ones [place] oil is the primary source of added fat in the Mediterranean diet. [place] oil provides mono unsaturated fat, which lowers total cholesterol and low- density lipoprotein ( or bad) cholesterol levels. Nuts and seeds also contain mono unsaturated fat. Fatty fish, such as mackerel, hammonds, sardines, albacore tuna and salmon, are rich in omega-3 fatty acids, a type of polyunsaturated fat that may reduce inflammation in the body. [place]-3 fatty acidsalso help decrease triglycerides, reduce blood [...] to whole grain bread, cereal, and pasta. [place] with other whole grains, such as crow [...] small. Enjoy some dairy. Eat low fat Nigerian or plain yogurt and small amounts of [...] per week might help. Your doctor or insulation cupola charger can give youadvice on healthy weight loss [...] are diabetic or insulin-resistant. documented in this encounterMarymount Hospital07-19-2024 NoteHol[facility]07-19-2024 History of Present illness Narrative* Joelle [...] for internal providers or letter via the [employer] for external providers. HPI: Eri Pritchard is [...] HX REMV CATARACT EXTRACAP,INSERT LENS bilateral 2016 Allergies: ALLERGIES Allergen Reactions Accupril [Quinapril] Unknown [...] 18, 2023 11:57 AM documented in this encounterMarymount Hospital07-16-2024 Progress note* Result Encounter Note - Anastasiia Colón APRN.CNS - 11/15/2023 8:50 AM EDT Normal stress test results [facility]07-16-2024 Miscellaneous Notes* Result Encounter Note - Anastasiia Colón APRN.CNS - 11/15/2023 8:50 AM EDT Normal stress test results documented in this encounterMarymount Hospital07-15-2024 Instructions* Patient Instructions* Anastasiia Colón APRN.CNS - 11/14/2023 10:09 AM EDT Stop taking metformin Start taking glimepiride. Check your blood sugar daily. If your blood sugars remaining above 200 after 2 to 4 weeks let us know so we can increase the doseof glimepiride. documented in this encounterMarymount Hospital07-15-2024 History of Present illness Narrative* Anastasiia Colón [...] department follow-[facility]. [facility]. She [...] were negative. No evidence of ACS or WA. She was referred to follow-up with GI [...] Abs Lymph 1.00 - 4.00 k/uL 1.87 Warren% % 10.7 Abs Warren <0.87 k/uL 0.67 Eosin% % 1.8 Abs [...] 6 mo follow up MD Anastasiia Wilson APRN.CASING MATERIAL WEIGHER Medical Decision Making: Problems: Moderate: 1+ chronic illnesses with change Risk: Moderate: Drug management Medical Decision Making Level: 4 - Moderate documented in this encounterMarymount Hospital07-15-2024 NoteHol[facility]07-11-2024 NoteHNO ID: [id number] Author: IWONA DONATO RN Service: ? Author Type: Registered Nurse Type: Progress Notes Filed: 11/10/2023 15:48 Note Text: pcp agrees with informationHolzer Hospital07-11-2024 History of Present illness Narrative* Iwona Donato RN - 11/10/2023 3:48 PM EDT pcp agrees with information * Iwona Donato RN - 11/10/2023 9:17 AM EDT patient had inr completed at [facility] patients inr is 2.2 (patients inr range is 2.0-3.0) patient is currently taking 1mg Wed and 2mg all other days patients last dose change was on 06/02/23 due to a low level of 1.6 (dose at that time was 1mg Tu,Th and 2mg all other days) patient has [...] for follow up INR. documented in this encounterMarymount Hospital07-11-2024 NoteHol[facility]07-08-2024 Miscellaneous Notes* Telephone Encounter - Elle Ramirez MA - 11/07/2023 11:08 AM EDT Patient notified, has INR on and will repeat lab at this time. Checking BS at home and will bring monitor to appointment. * Telephone Encounter - Elle Ramirez MA - 11/07/2023 11:05 AM EDT ----- Message from Anastasiia Colón APRN.CASING MATERIAL WEIGHER sent at 11/06/2023 8:44 AM EDT ----- Glucose much improved but remains uncontrolled. Sodium approaching normal level. Improved BUN/Cr. Has OV scheduled next week, repeat labs before visit if able to do so. Check to see if taking medications as ordered, home glucose levels documented in this encounterMarymount Hospital07-08-2024 Telephone encounter Note * Telephone Encounter - Elle Ramirez MA - 11/07/2023 11:08 AM EDT Patient notified, has INR on and will repeat lab at this time. Checking BS at home and will bring monitor to appointment. [facility]07-08-2024 Telephone encounter Note* Telephone Encounter - Elle Ramirez MA - 11/07/2023 11:05 AM EDT ----- Message from Anastasiia Colón APRN.CASING MATERIAL WEIGHER sent at 11/06/2023 8:44 AM EDT ----- Glucose much improved but remains uncontrolled. Sodium approaching normal level. Improved BUN/Cr. Has OV scheduled next week, repeat labs before visit if able to do so. Check to see if taking medications as ordered, home glucose levels [facility]07-05-2024 Telephone encounter Note* Telephone Encounter - María [...] as needed (muscle spasms). Or muscle spasms Maríamary jo Petty November 04, 2023 8:09 AM [facility]07-05-2024 Miscellaneous Notes* Telephone Encounter - María Zelaya [...] 04, 2023 8:09 AM documented in this encounterMarymount Hospital06-24-2024 History of Present illness Narrative* Teena Workman, RT(R) - 10/24/2023 3:40 PM EDT Radiology Service [...] PATIENT PRESENTS WITH AN IMPLANTABLE OR ATTACHED CELL STRIPPER: No RADIOLOGY DEPARTMENT: CT; Exam(s) Completed: Chest PERIPHERAL IV DATA: Not applicable SIGNED BY: RT Cas(R) October 24, 2023 3:53 PM documented in this encounterMarymount Hospital06-24-2024 NoteHol[facility]06-20-2024 Telephone encounter Note* Telephone Encounter - Anastasiia Colón APRN.CNS - 10/20/2023 4:42 PM EDT Note the improvement. [facility]-20-20[facility] Miscellaneous Notes* Telephone Encounter - Anastasiia Colón [...] better. * Telephone Encounter - Anastasiia Colón APRN.AMBROSIO [...] pt. Emily Bustos LPN documented in this encounterMarymount Hospital06-20-2024 Telephone encounter Note * Telephone Encounter - Bekah Vivas LPN - 10/20/2023 4:33 PM EDT Patient states she is taking her medication as directed. Blood sugars have been below 250. Yesterday it was 224, today it was 236. None below 200 but she said she is trying. [facility]06-20-2024 Telephone encounter Note* Telephone Encounter - Anastasiia Colón APRN.CASING MATERIAL WEIGHER - 10/20/2023 4:17 PM EDT Please check with her to see if she is still taking her diabetes medicines as ordered and what her blood sugar is doing [facility]06-13-2024 NoteHNO ID: [id number] Author: KAILEE KOCH MD Service: ? Author Type: Physician Type: Progress Notes Filed: 10/13/2023 09:32 Note Text: INR therapeutic. Continue current coumadin dosage and follow up in 4 weeks. [facility] History of Present illness Narrative* Kailee Koch MD - 10/13/2023 9:32 AM EDT INR therapeutic. Continue current coumadin dosage and follow up in 4 weeks. * Iwona Donato RN - 10/13/2023 9:24 AM EDT patient had inr completed at [facility] patients inr is 2.4 (patients inr range is 2.0-3.0) patient is currently taking 1mg Wed and 2mg all other days patients last dose change was on 06/02/23 due to a low level of 1.6 (dose at that time was 1mg Tu Th and 2mg all other days) patient has [...] for follow up INR. documented in this encounterMarymount Hospital06-13-2024 Telephone encounter Note * Telephone Encounter - Iwona Donato RN - 10/13/2023 9:27 AM EDT patient was in today to have her inr checked and reported that BS was now down to 297 this morning non-fasting with the changes [facility]06-13-2024 NoteHolzer [facility]06-12-2024 Note [facility]zer [facility] History of Present illness Narrative* Suresh Varela RN - 10/12/2023 1:49 PM EDT DIABETES CARE AND EDUCATION VISIT Location: [place] Type of visit: In person individual PATIENT'S [...] 2023 TIME: 1:49 PM documented in this encounterMary[facility]06-[facility] Telephone encounter Note * Telephone Encounter - Bekah Vivas LPN - 10/11/2023 4:33 PM EDT Patient notified of providers message and verbalized understanding. Patient states she just took her BS and it is 350 and she is starting to feel better. [facility]06-11-[facility]24 Telephone encounter Note* Telephone Encounter - Anastasiia Colón APRN.AMBROSIO - 10/11/2023 4:27 PM EDT Verify that she took two metformin this morning. If not recommend taking now. If she did take 2 metformin this morning she can take 2 metformin with dinner as well. Endorse ER visit for any severe concerning symptoms. [facility]06-11-2024 Telephone encounter Note* Telephone Encounter - Emily [...] vomiting. Please advise pt. Emily Bustos LPN [facility]06-11-2024 Telephone encounter Note* Telephone Encounter - Krys Townsend RN - 10/11/2023 9:42 AM EDT Pt called and is notified of providers results and instructions. Pt voices understanding. Put DM booklets in Medical Records for Pt to continuous pickling line pickler today. Sent Pts chart to scheduling to call back and schedule with DM education. Krys Townsend RN [facility]06-11-2024 Miscellaneous Notes* Telephone Encounter - Krys Townsend RN - 10/11/2023 9:42 AM EDT Pt called and is notified of providers results and instructions. Pt voices understanding. Put DM booklets in Medical Records for Pt to continuous pickling line pickler today. Sent Pts chart to scheduling to call back and schedule with DM education. Krys Townsend RN * Telephone Encounter - Anastasiia Colón APRN.AMBROSIO [...] Zoey Lorenz LPN * Telephone Encounter - Kaiele Koch MD - 10/11/2023 3:46 AM EDT [...] with patient in detail. documented in this encounterMarymount Hospital06-11-2024 Telephone encounter Note * Telephone Encounter - Anastasiia Colón APRN.CNS - 10/11/2023 9:15 AM EDT Recommend she [...] go. Can mail DM booklets as well. [facility]06-11[facility] Telephone encounter Note* Telephone Encounter - Zoey [...] so has stopped that. Zoey Lorenz LPN [facility]06-11-2024 Telephone encounter Note* Telephone Encounter - Kailee [...] ER evaluation reviewed with patient in detail. [facility] Work Phone: 1(914) 180-688506-10-2024 Instructions* Patient Instructions* Anastasiia Colón APRN.CASING MATERIAL WEIGHER - 10/10/2023 12:31 PM EDT Stay on [...] department. Recommend recheck today. Consider follow-up with supervisor typesetting. I recommend a stress echocardiogram to further check regarding chest pain. I recommend a cardiology visit as well. documented in this encounterMarymount Hospital06-10-2024 [facility] History of Present illness Narrative* Anastasiia [...] [facility]. [facility] [...] were negative. No evidence of ACS or WA. She was referred to follow-up with GI [...] left upper lobe on chest x-ray at [facility], CT chest for further evaluation and characterization - CT CHEST [facility] 3. Transaminitis - ICD9: 790.4, ICD10: [...] department. Recommend recheck today. Consider follow-up with supervisor typesetting. I recommend a stress echocardiogram to further check regarding chest pain. I recommend a cardiology visit as well. 4-6 week follow up with me 3 - 6 mo follow up MD Anastasiia Wilson APRN.CASING MATERIAL WEIGHER Medical Decision Making: Problems: Moderate: Acute illness with systemic symptoms Data: Unique test(s) ordered: 1 Risk: Moderate: Drug management Medical Decision Making Level: 4 - Moderate documented in this encounterMarymount Hospital06-06-2024 Telephone encounter Note * Telephone Encounter - Kierra Santiago MD - 10/06/2023 9:00 AM EDT The following approved medication requests have been transmitted electronically. Requested Prescriptions Pending Prescriptions Disp Refills metFORMIN (GLUCOPHAGE) 500 mg tablet 180 tablet 1 Sig: Take 1 tablet by mouth two times a day with meals. As directed Kierra Santiago MD [facility]06-06-2024 Miscellaneous Notes* Telephone Encounter - Kierra Santiago [...] Thank you. María Petty. documented in this encounterMarymount Hospital06-05-2024 Telephone encounter Note * Telephone Encounter - [...] 10/10/2023 Please advise. Thank you. María Petty. [facility]06-04-2024 [facility] History of Present illness Narrative* Mary Kay Delgado, - 10/04/2023 10:03 AM EDT Images from the original note were not included. [facility] DEPARTMENT OF VASCULAR SURGERY OUTPATIENT VISIT DATE [...] 2023 TIME: 10:03 AM documented in this encounterMarymount Hospital05-24-2024 [facility] History of Present illness Narrative* Nataliia Rehman APRN.PET AMBASSADOR - 09/23/2023 1:25 PM EDT Patient came [...] want to take themselves. documented in this encounterMarymount Hospital05-16-2024 NoteHNO ID: [id number] Author: ANASTASIIA COLÓN APRN.AMBROSIO Service: ? Author Type: Nurse Specialist Type: Progress Notes Filed: 09/15/2023 16:23 Note Text: Continue with Coumadin dose unchanged and check INR in 4 weeksHolzer Hospital05-16-2024 History of Present illness Narrative* Anastasiia Colón APRN.CASING MATERIAL WEIGHER - 09/15/2023 11:56 AM EDT Continue with Coumadin dose unchanged and check INR in 4 weeks * Iwona Donato RN - 09/15/2023 9:26 AM EDT patient had inr completed at [facility] patients inr is 2.9 (patients inr range [...] for follow up INR. documented in this encounterMarymount Hospital05-16-2024 [facility]Hol[facility]04-18-[facility] History of Present illness Narrative* Greg Tyler MD - 08/18/2023 11:03 AM EDT agree * Iwona Donato RN - 08/18/2023 9:34 AM EDT patient had inr completed at [facility] patients inr is 2.1 (patients inr range [...] for follow up INR. documented in this encounterMarymount Hospital03-21-2024 Miscellaneous Notes* Telephone Encounter - Anastasiia Colón [...] can not be approved. documented in this encounterMarymount Hospital03-21-2024 History of Present illness Narrative* Anastasiia Colón APRN.CNS - 07/21/2023 2:02 PM EDT Continue with Coumadin dose unchanged and check INR in 4 weeks * Iwona Donato RN - 07/21/2023 11:52 AM EDT patient had inr completed at [facility] patients inr is 2.8 (patients inr range [...] for follow up INR. documented in this encounterMarymount Hospital03-19-2024 Miscellaneous Notes* Telephone Encounter - Emily Bustos [...] Insurance and pharmacy verified. documented in this encounterMarymount Hospital02-29-2024 History of Present illness Narrative* Anastasiia Colón APRN.CNS - 06/30/2023 12:41 PM EST Continue with Coumadin dose unchanged and check INR in 3 weeks. * Iwona Donato RN - 06/30/2023 9:48 AM EST patient had inr completed at [facility] patients inr is 3.0 (patients inr range [...] for follow up INR. documented in this encounterMarymount Hospital02-15-2024 History of Present illness Narrative* Anastasiia Colón APRN.CNS - 06/16/2023 3:52 PM EST Continue Coumadin dose unchanged and recheck INR in 2 weeks. * Iwona Donato RN - 06/16/2023 12:10 PM EST patient had inr completed at [facility] patients inr is 2.2 (patients inr range [...] reading since dose change documented in this encounterMarymount Hospital02-06-2024 History of Present illness Narrative* Anastasiia Colón APRN.CNS - 06/07/2023 9:00 AM EST SUBJECTIVE: RSV Vaccine(1 - 1-dose 60+ series) Never done Advance Directive Discussion due on 05/02/2023 Depression Assessment due on 05/02/2023 HPI Eri Pritchard is a 82 year [...] Kierra Santiago MD. Notes recent move [facility] family member. Previous PCP: Roel Maza DO, DO [address] [facility] [address] Last seen: January 2022 Labwork:January 2022 ER/Hospitalization: [...] hyperglycemia, without long-term current use of insulin ([facility]) - ICD9: 250.00, 790.29, ICD10: E11.65 (primary diagnosis) 5. Type 2 diabetes mellitus with diabetic polyneuropathy, without long-term current use of insulin ([facility]) - ICD9: 250.60, 357.2, ICD10: E11.42 Controlled, continue with current treatment unchanged for now. Endorse adherence to diet, exercise as able. No change in medications at this time. 2. Peripheral vascular disease, unspecified ([facility]) - ICD9: 443.9, ICD10: I73.9 Completed ultrasound in March 2023 of carotids. 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 Factor 5 Leiden mutation, heterozygous (HCC) - ICD9: 289.81, ICD10: D68.51 Continue with [...] Level: 4 - Moderate documented in this encounterMarymount Hospital02-01-2024 History of Present illness Narrative* Bekah Vivas LPN - 06/02/2023 4:37 PM EST Patient notified of providers message and verbalized understanding. * Anastasiia Colón APRN.CNS - 06/02/2023 4:14 PM EST Coumadin 1 mg on Tuesday and 2 mg all other days and check INR in 2 weeks. * Iwona Donato RN - 06/02/2023 9:39 AM EST patient had inr completed at [facility] patients inr is 1.6 (patients inr range [...] and advise on recommendation documented in this encounterMarymount Hospital01-01-2024 Miscellaneous Notes* Telephone Encounter - Alice Mcneill RN - 05/02/2023 7:56 AM EST Reason: Severe sinus pain, congestion Outcome: 4 hour recommendation. Care advice given. Patient will got to [facility] for evaluation. Reason for Disposition [1] Redness [...] weak, fatigue Protocols used: Sinus Pain or [id number] documented in this encounterMarymount Hospital11-29-2023 History of Present illness Narrative* Iwona Donato RN - 03/30/2023 3:02 PM EST pcp agrees with information * Iwona Donato RN - 03/30/2023 9:20 AM EST patient had inr completed at [facility] patients inr is 2.0 (patients inr range [...] for follow up INR. documented in this encounterMarymount Hospital11-14-2023 History of Present illness Narrative* Lelo Sood, LUDLOW MACHINE OPERATOR.PET AMBASSADOR - 03/15/2023 10:22 AM EST Images from the original note were not included. [facility] DEPARTMENT OF VASCULAR SURGERY OUTPATIENT VISIT DATE [...] BP Cuff Size: Regular Adult) Pulse 74 VwF136% General: Alert and oriented x3 Integumentary: Normal [...] increased risk for clotting SIGNATURE: Lelo Sood APRN.PET AMBASSADOR PATIENT NAME: Eri Pritchard DATE: March 15, 2023 TIME: 10:22 AM documented in this encounterMarymount Hospital10-26-2023 History of Present illness Narrative* Iwona Donato RN - 02/24/2023 4:16 PM EDT PATIENT NOTIFIED OF INFORMATION * Anastasiia Colón APRN.CNS - 02/24/2023 12:12 PM EDT Coumadin 1mg , 2mg all other days and recheck INR in 1 week * Iwona Donato RN - 02/24/2023 10:19 AM EDT patient had inr completed at [facility] patients inr is 3.1 (patients inr range [...] and advise on recommendation documented in this encounterMarymount Hospital10-17-2023 Miscellaneous Notes* Telephone Encounter - Romina Sawant [...] from [facility] in [place] states she has diabetic shoes ready to [...] to pt. Krys can be reached at [phone]. Concetta Snyder LPN documented in this encounterMarymount Hospital10-06-2023 History of Present illness Narrative* Kierra Santiago MD - 02/04/2023 5:18 PM EDT This note was created using Just Be Friendsriter. 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 Worse now than used to be. Had not tried biotin. Taking Vitamin C Noted had skin lesions that PCP had cryotherapy on face (has lateral right eyebrow) Previously treated--tiny rough spot. Seeing Dr. Johnson about her neck (vascular). Had prior right carotid endarterectomy. Has appointmentNovember. Seeing duralumin metalworker--Dr. Blanca. Noted getting new orthotics on Tuesday. [...] Abs Lymph 1.00 - 4.00 k/uL 1.80 Warren% % 10.2 Abs Warren <0.87 k/uL 0.64 Eosin% % 2.1 Abs [...] polyneuropathy, without long-term current use of insulin ([facility]) E11.42 HGB A1C CBC COMP METABOLIC PANEL Patient would benefit from Diabetic shoes. 2. Stenosis of carotid artery, unspecified laterality I65.29 3. History of carotid endarterectomy Z98.890 4. Primary hypertension I10 CBC COMP METABOLIC PANEL 5. Factor V deficiency ([facility]) D68.2 6. Encounter for long-term current use of medication Z79.899 LIPID PANEL BASIC HGB A1C CBC COMP METABOLIC PANEL 7. Mixed hyperlipidemia E78.2 LIPID PANEL BASIC 8. Chronic cough R05.3 9. Need for influenza vaccination Z23 INFLUENZA VACCINE, PRSV FREE, AGE 65+ YR, HIGH DOSE, QUADRIVALENT (FLUZONE HIGH-DOSE) 10. Encounter for immunization Z23 Normal-[employer] COVID-19 VACCINE (2022- [place]) AGE 12+ YR [...] the date of the service which included wcnf-yc-dbpt patient care, completing clinical documentation, performing a medically appropriate examination, counseling and educating the patient/family/caregiver, ordering medications, tests, or procedures, independently interpreting results (not separately reported), and communicating results to the patient/family/caregiver. Kierra Santiago MD documented in this encounterMarymount Hospital09-28-2023 History of Present illness Narrative* Anastasiia Colón APRN.CNS - 01/27/2023 4:29 PM EDT Continue with Coumadin dose unchanged and check INR in 4 weeks * Iwona Donato RN - 01/27/2023 9:38 AM EDT patient had inr completed at [facility] patients inr is 2.3 (patients inr range [...] follow u p INR. documented in this encounterMarymount Hospital09-21-2023 History of Present illness Narrative* Anastasiia Colón APRN.CNS - 01/20/2023 4:41 PM EDT hold coumadin today, go back to eating the usual [place] and continue on the 2mg coumadin and recheck inr in 1 week * Iwona Donato RN - 01/20/2023 10:24 AM EDT patient had inr completed at [facility] patients inr is 3.5 (patients inr range [...] and advise on recommendation documented in this encounterMarymount Hospital09-06-2023 Miscellaneous Notes* Telephone Encounter - Zahra Negrete [...] and advise. Zahra Negrete documented in this encounterMarymount Hospital08-23-2023 History of Present illness Narrative* Sheryl Reyes APRN.PET AMBASSADOR - 12/22/2022 10:33 AM EDT SUBJECTIVE Eri [...] 3 months. Noticing feeling overwhelmed. Moved from [place]. She notes a cough. On going since [...] Hyperglycemia, Without Long-Term Current Use of Insulin ([facility]) - 07/01/2022 Factor V Deficiency ([facility]) - 07/01/2022 Social History Tobacco Use Smoking [...] medication.. Sheryl Reyes APRN-DAMASO documented in this encounterMarymount Hospital08-22-2023 Miscellaneous Notes* Telephone Encounter - Kierra Santiago [...] Irizarry RN - 12/21/2022 11:07 AM EDT [facility] pharmacist reports they received a metformin ER [...] RX will be sent to her local [facility] pharmacy. No need to notify patient. Cherelle Aguillon documented in this encounterMarymount Hospital08-22-2023 Miscellaneous Notes* Telephone Encounter - Anastasiia Colón [...] today and advise. TY documented in this encounterMarymount Hospital08-17-2023 History of Present illness Narrative* Anastasiia Colón APRN.CNS - 12/16/2022 11:25 AM EDT Continue with Coumadin dose unchanged and check INR in 1 month * Iwona Donato RN - 12/16/2022 10:15 AM EDT patient had inr completed at [facility] patients inr is 2.9 (patients inr range [...] for follow up INR. documented in this encounterMarymount Hospital08-03-2023 History of Present illness Narrative* Sally Centeno - 12/02/2022 7:51 AM EDT Eri Pritchard is identified through a medication adherence outreach initiative based on pharmacy claims data from [employer] (insurer) for Non-insulin DM medication(s). Patient is [...] she could stop the metformin. Sally Rodríguez Pharm-T documented in this encounterMarymount Hospital08-02-2023 History of Present illness Narrative* Kailee Johnson MD - 12/01/2022 6:35 PM EDT Images from the original note were not included. [facility] DEPARTMENT OF VASCULAR SURGERY OUTPATIENT VISIT DATE [...] BP Cuff Size: Regular Adult) Pulse 75 BzZ100% General: Alert and oriented, No acute distress, [...] reviewed for today's visit: [facility] Carotid Duplex Bilateral/Complete Date of service/time: 08/10/2022 [...] cm/s. EDV: 9 cm/s. 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 08/10/2022 11:55 am RIGHT [...] antegrade flow noted. Technologist: Madeleine Gayle RVT, [facility] Ordering physician: ANASTASIIA COLÓN Interpreting physician: Filemon [...] We will repeat her carotid duplex in October, as that will be 6 months since her last duplex. Continue aspirin and statin. Return for review of duplex. SIGNATURE: Kailee Johnson MD PATIENT NAME: Eri Pritchard DATE: December 01, 2022 TIME: 6:35 PM documented in this encounterMarymount Hospital07-24-2023 History of Present illness Narrative* Teena Workman [...] 22, 2022 4:11 PM documented in this encounterMarymount Hospital07-20-2023 History of Present illness Narrative* Anastasiia Colón APRN.CNS - 11/18/2022 3:48 PM EDT Continue with Coumadin dose unchanged and check INR in 4 weeks * Iwona Donato RN - 11/18/2022 9:29 AM EDT patient had inr completed at [facility] patients inr is 3.0 (patients inr range [...] for follow up INR. documented in this encounterMarymount Hospital06-29-2023 History of Present illness Narrative* Anastasiia Colón APRN.CNS - 10/28/2022 3:41 PM EDT Continue with Coumadin dose unchanged and check INR in 3 weeks * Iwona Donato RN - 10/28/2022 9:42 AM EDT patient had inr completed at [facility] patients inr is 2.5 (patients inr range [...] for follow up INR. documented in this encounterMarymount Hospital06-13-2023 History of Present illness Narrative* Mary Kay Delgado DO - 10/12/2022 11:38 AM EDT This office note has been dictated. Mary Kay Delgado DO documented in this encounterMarymount Hospital06-13-2023 History of Present illness Narrative* Teena Workman RT(R) - 10/12/2022 9:20 AM EDT Radiology [...] CTA Brain and CTA Neck SIGNATURE: RT Cas(Ana Maria) PATIENT NAME: Eri Pritchard DATE: October 12, 2022 TIME: 1:28 PM documented in this encounterMarymount Hospital06-01-2023 History of Present illness Narrative* Anastasiia Colón APRN.AMBROSIO - 09/30/2022 1:27 PM EDT Continue with current Coumadin dosing and check INR in 4 weeks * Iwona Donato RN - 09/30/2022 9:35 AM EDT patient had inr completed at [facility] patients inr is 2.2 (patients inr range [...] for follow up INR. documented in this encounterMarymount Hospital05-02-2023 Miscellaneous Notes* Telephone Encounter - Bekah Lu [...] Abs Lymph 1.00 - 4.00 k/uL 1.80 Warren% % 10.2 Abs Warren <0.87 k/uL 0.64 Eosin% % 2.1 Abs [...] - 4.200 mIU/L 2.450 documented in this encounterMarymount Hospital04-28-2023 Miscellaneous Notes* Telephone Encounter - Bekah Lu [...] LPN * Telephone Encounter - Anastasiia Colón APRN.CASING MATERIAL WEIGHER - 08/24/2022 5:29 PM EDT 1-Her INR [...] and advise. Luz PETTY documented in this encounterMarymount Hospital04-19-2023 History of Present illness Narrative* Praful Ledesma [...] 18, 2022 9:24 AM documented in this encounterMarymount Hospital04-19-2023 Miscellaneous Notes* Result Encounter Note - Anastasiia Colón APRN.CNS - 08/18/2022 9:30 AM EDT BMD shows osteopenia documented in this encounterMarymount Hospital04-14-2023 Miscellaneous Notes* Telephone Encounter - Julianne Pedraza [...] and antegrade flow noted. documented in this encounterMarymount Hospital04-03-2023 Miscellaneous Notes* Telephone Encounter - Bekah Lu LPN - 08/02/2022 4:59 PM EDT Patient notified of coumadin instructions and verbalized understanding. * Telephone Encounter - Anastasiia Colón APRN.CNS - 08/02/2022 4:02 PM EDT Please let her know INR is 2.3. Continue on with Coumadin dose unchanged, 2 mg daily. documented in this encounterMarymount Hospital04-03-2023 Miscellaneous Notes* Addendum Note - Anastasiia Colón APRN.CNS - 08/02/2022 12:46 PM EDTAddended by: ANASTASIIA COLÓN on: 08/02/2022 12:46 PM Modules accepted: Orders documented in this encounterMarymount Hospital04-03-2023 Instructions* Patient Instructions* Anastasiia Colón APRN.CNS - 08/02/2022 9:49 AM EDT Schedule appointment with Coumadin clinic. Schedule an eye exam. Consider getting vaccines at your local pharmacy or here at clinic Tdap shingles pneumonia and COVID-19 vaccines appear to be due for you unless you completed these lis-uw-dqitg. documented in this encounterMarymount Hospital04-03-2023 History of Present illness Narrative* Anastasiia Colón [...] Kierra Santiago MD. Notes recent move to [facility] for family member. Previous PCP: Roel Maza DO, DO [address] [facility] [address] Last seen: January 2022 Labwork:January 2022 ER/Hospitalization: [...] Abs Lymph 1.00 - 4.00 k/uL 1.80 Warren% % 10.2 Abs Warren <0.87 k/uL 0.64 Eosin% % 2.1 Abs [...] due for you unless you completed these thf-wc-jequu. Anastasiia Colón APRN.CNS Medical Decision Making: Problems: Moderate: 2+ stable chronic illnesses Data: Unique test(s) ordered: 2 Risk: Low: Low risk from testing/treatment Medical Decision Making Level: 3 - Low documented in this encounterMarymount Hospital03-03-2023 Miscellaneous Notes* Telephone Encounter - Noemi Cullen RN - 07/02/2022 9:16 AM EST Pt contacted and given provider's message below. Pt verbalized understanding and wrote instructionsdown. Noemi Cullen RN * Telephone Encounter - Anastasiia Colón APRN.CASING MATERIAL WEIGHER - 07/02/2022 7:34 AM EST Please let [...] Abs Lymph 1.00 - 4.00 k/uL 1.80 Warren% % 10.2 Abs Warren <0.87 k/uL 0.64 Eosin% % 2.1 Abs [...] - 4.200 mIU/L 2.450 documented in this encounterMarymount Hospital03-02-2023 History of Present illness Narrative* Anastasiia Colón [...] Maza DO, DO [address] [facility] [address] [facility] [address] Last seen: January 2022 Labwork:January 2022 ER/Hospitalization: [...] 1 tablet by mouth daily at bedtime. cranberry-B.mxfftalb-B-Bl phos 480 mg-20 mg- 100million cell tab [...] Abs Lymph 1.00 - 4.00 k/uL 1.80 Warren% % 10.2 Abs Warren <0.87 k/uL 0.64 Eosin% % 2.1 Abs [...] LAB 1 mo follow up Anastasiia Colón APRN.CASING MATERIAL WEIGHER 6 mo follow up MD Anastasiia Wilson APRN.CASING MATERIAL WEIGHER Medical Decision Making: Problems: Moderate: 2+ stable chronic illnesses Data: Unique test(s) ordered: 3+ Risk: Moderate: Drug management Medical Decision Making Level: 4 - Moderate documented in this encounterMarymount HospitalEvaluation note* Diagnosis Routine medical exam- Primary Routine [...] Other postprocedural status documented in this encounter [facility] HospitalEvaluation [facility]* Diagnosis Type 2 diabetes mellitus with hyperglycemia, without long-term current use of insulin (HCC)- Primary Encounter for immunization Need for other specified prophylactic vaccination against single bacterial disease Screening for diabetic retinopathy Screening for other eye conditions Screening for osteoporosis Special screening for osteoporosis Asymptomatic menopause documented in this encounter [facility]* Diagnosis Stenosis of carotid artery, unspecified laterality- Primary History of carotid endarterectomy Other postprocedural status History of transient ischemic attack (TIA) Transient ischemic attack (TIA), and cerebral infarction without residual deficits Stenosis of left carotid artery Occlusion and stenosis of carotid artery without mention of cerebral infarction [facility] Diagnosis Type 2 diabetes mellitus with hyperglycemia, without long-term current use of insulin ([facility])- Primary High triglycerides Pure hyperglyceridemia [facility] Diagnosis 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 [facility] Diagnosis Stenosis of carotid artery, unspecified laterality History of carotid endarterectomy Other postprocedural status History of transient ischemic attack (TIA) Transient ischemic attack (TIA), and cerebral infarction without residual deficits Stenosis of left carotid artery Occlusion and stenosis of carotid artery without mention of cerebral infarction [facility] Diagnosis 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 [facility] Diagnosis 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 [facility] Diagnosis Carotid stenosis, asymptomatic, bilateral- Primary [facility] Diagnosis 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 [facility] Diagnosis Stress and adjustment reaction- Primary Other specified adjustment reaction Sleep disturbance Sleep disturbance, unspecified Type 2 diabetes mellitus with diabetic polyneuropathy, without long-term current use of insulin (HCC) [facility] Diagnosis 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 [facility] Diagnosis Type 2 diabetes mellitus with [...] single bacterial disease [facility] Diagnosis 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 [facility] Diagnosis Lung nodules Other nonspecific abnormal finding of lung field [facility] Diagnosis Occlusion and stenosis of unspecified carotid artery [facility] Diagnosis Screening for osteoporosis Special screening for osteoporosis Asymptomatic menopause [facility] Diagnosis Bilateral carotid artery stenosis- Primary Occlusion and stenosis of carotid artery without mention of cerebral infarction Primary hypertension Unspecified essential hypertension Elevated HDL Other symptoms involving cardiovascular system Factor 5 Leiden mutation, heterozygous (HCC) Primary hypercoagulable state [facility] Diagnosis 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 [facility] Diagnosis Type 2 diabetes mellitus with hyperglycemia, without long-term current use of insulin (HCC)- Primary Peripheral vascular disease, unspecified (HCC) Peripheral vascular disease, unspecified 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 Factor 5 Leiden mutation, heterozygous (HCC) Primary hypercoagulable state Type 2 diabetes mellitus with diabetic polyneuropathy, without long-term current use of insulin (HCC) Encounter for immunization Need for other specified prophylactic vaccination against single bacterial disease Facial lesion Unspecified disorder of skin and subcutaneous tissue Other acute sinusitis Mixed hyperlipidemia Subclinical hypothyroidism Other specified acquired hypothyroidism [facility] Diagnosis 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 [facility] Diagnosis 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 [facility] Diagnosis Left arm numbness- Primary Disturbance of skin sensation [facility] Diagnosis Uncontrolled type 2 diabetes mellitus with hyperglycemia (HCC)- Primary Hyponatremia Hyposmolality and/or hyponatremia documented [facility] Diagnosis Uncontrolled type 2 diabetes mellitus with hyperglycemia (HCC) [facility] Diagnosis 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 [facility] Diagnosis Lung nodules Other nonspecific abnormal finding of lung field [facility]* Diagnosis Bilateral carotid artery stenosis- Primary Occlusion and stenosis of carotid artery without mention of cerebral infarction [facility] [...] Primary hypercoagulable state [facility] Diagnosis Elevated alanine aminotransferase (ALT) level- Primary Nonspecific elevation of levels of transaminase or lactic acid dehydrogenase (LDH) [facility]* Diagnosis Chest pain, unspecified type [facility] Diagnosis Elevated alanine aminotransferase (ALT) level Nonspecific elevation of levels of transaminase or lactic acid dehydrogenase (LDH) [facility]* Diagnosis Factor V deficiency (HCC)- [...] insulin (HCC)- Primary [facility]* Diagnosis Hypoxia- Primary Hypoxemia [facility] Diagnosis Acute cough [facility] Diagnosis Pain- Primary Generalized pain [...] polyneuropathy, without long-term current use of insulin ([facility]) Factor 5 Leiden mutation, heterozygous (HCC) Primary [...] Unspecified erythematous condition [facility] Diagnosis Critical limb ischemia of right lower extremity (HCC)- Primary Pain of foot, unspecified laterality [facility] Diagnosis Chest pain, unspecified type- Primary Lung nodules Other nonspecific abnormal finding of lung field Transaminitis Nonspecific elevation of levels of transaminase or lactic acid dehydrogenase (LDH) Atrial fibrillation, unspecified type (HCC) Type 2 diabetes mellitus with hyperglycemia, without long-term current use of insulin ([facility]) Factor 5 Leiden mutation, heterozygous (HCC) Primary hypercoagulable state Mid back pain on left side Pain in thoracic spine [facility] Diagnosis Critical limb ischemia of right lower extremity (HCC)- Primary S/P transmetatarsal amputation of foot, right (HCC) S/P femoral-popliteal bypass surgery Other postprocedural status Acute gastric ulcer, unspecified whether gastric ulcer hemorrhage or perforation present Duodenal ulcer Duodenal ulcer, unspecified as acute or chronic, without hemorrhage, perforation, or obstruction [facility]* Diagnosis 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 [facility]* Diagnosis Aortic valve disorder- Primary Aortic valve disorders Pure hypercholesterolemia Primary hypertension Unspecified essential hypertension Heart murmur Undiagnosed cardiac murmurs [facility]* Diagnosis Occlusion and stenosis of unspecified carotid artery- Primary [facility]* Diagnosis 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 [facility] Diagnosis 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 [facility] Diagnosis Pure hypercholesterolemia- Primary Primary hypertension Unspecified essential hypertension 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 Acute on chronic congestive heart failure, unspecified heart failure type (HCC) Atrial fibrillation, unspecified type (HCC) [facility] Diagnosis Type 2 diabetes mellitus with diabetic polyneuropathy, without long-term current use of insulin (HCC)- Primary [facility] Diagnosis Type 2 diabetes mellitus with diabetic polyneuropathy, without long-term current use of insulin (HCC)- Primary Hypokalemia Hypopotassemia Other acute sinusitis Decreased hearing of both ears Subclinical hypothyroidism Other specified acquired hypothyroidism History of anemia Personal history of diseases of blood and blood-forming organs S/P transmetatarsal amputation of foot, right (HCC) Stage 3b chronic kidney disease (HCC) [facility] Kelsie Muñoz [facility] Note Date/Time October 08, 2024 12:32 am [facility] Medical Records Department [address] [place] [id number] H&P Exam - Hospitalist 10/07/24 2342 MR#: [id number] Acct: [id number] Name: ERI PRITCHARD Rep #:[id number] : 1940 83 From: Kelsie Muñoz MD PCP: Dr. Kierra Santiago MD Status:AD M IN Location: [place] [address] HPI - General General Date of Admission: 10/07/24 Date of Service: 10/07/24 Chief Complaint: Dyspnea, chest pain, dark stools. HPI Narrative The patient is an 83 y/o F w/ PMHx: Diabetes mellitus type II, CKD stage III perGFR trending unclear subtype, PAF, Chronic hypoxic respiratory failure 2 L NC nightly only, PAD status post femoral-popliteal bypass, Carotid stenosis status post previous endarterectomy, Dilated Cardiomyopathy/HFpEF, Hx TIA, HTN, HLD, Anxiety and Depression, GERD, Hx VTE w/ factor V Leiden on Coumadin, recent upper endoscopy 08/22/[address] Giron secondary to history of gastric ulcer for surveillance with normal esophagus, erythematous mucosa in the gastric body which was biopsied with no gross lesions presents to the [facility] ED on 10/07/2024 with history of substernal nonpleuritic heaviness and dyspnea over the last 2 days worse with laying down with mild nonproductive cough with increased swelling to her legs over the last week prompting self administration of an extra Lasix a day prior with improvement of the swelling but given worsening dyspnea prompted her to utilize her oxygen not just in the evening but through the day with stools darker in appearance for the last 1 to 2weeks but she does note she is on chronic iron supplementation also but it certainly changed in color from previous. Patient and spouse also report recentat least 1 week history of mild orthopnea and cough with frothy sputum in addition to her recent increased swelling of her lower extremities. Workup in the ED included T98.3, heart rate 69, BP 119/45, respiratory rate 23, 100% on room air with most recent repeat vitals T98, heart rate 64, BP 109/53, respiratory rate 16, 90% room air, CBC with WBC 7.4, hemoglobin 6.5, MCV 106.7, platelet 184 without marked shift, coags with INR 2.7, PT 29.4, BMP with carbon dioxide 16.2, anion gap 16, BUN/creat 36/1.46, GFR 35, glucose 140, troponin 46,NT proBNP II 2304, chest x- ray with trace pleural effusion and mild cardiomegaly, EKG with sinus rhythm with ST depression in the lateral leads but no evidence of acute STEMI, stool guaiac positive. In the ED patient initiated on 2 unit PRBC and administered also FFP. In the ED patient answered albuterol,Protonix 40 mg IV x 1. PFSH Medical History TIA (transient ischemic attack) Wears glasses Depression Heartburn Non-smoker On home oxygen therapy Hypertension Gastric ulcer Dilated cardiomyopathy Prolonged QT interval Elevated blood pressure reading without diagnosis of hypertension Factor V Leiden Anxiety Hypokalemia Acute hypoxemic respiratory failure CHF (congestive heart failure) Home Medications ?Medication ?Instructions ?Recorded ?Last Taken ?Type oxybutynin chloride 10 mg 10 mg PO DAILY bladder 09/2208/22/24 History tablet,extended release 24 hr glimepiride 2 mg tablet 2 mg PO DAILY dm 12/31/23 Un known History ferrous sulfate 325 mg (65 mg 325 mg PO DAILY@1200 sup plement 30 02/03/24 Unknown Rx iron) tablet (FeroSul) days #30 tabs warfarin 2 mg tablet 2 mg PO .MWF afib 03/07/24 U nknown History furosemide 40 mg tablet 40 mg PO DAILY water pill 30 days 03/19/24 01/27/24 Rx #60 tabs clopidogrel 75 mg tablet 75 mg PO DAILY 30 days #30 t abs 04/05/24 Unknown Rx pantoprazole 40 mg tablet,delayed 40 mg PO BID 30 days #60 tabs 04/05/24 Unknown Rx release simvastatin 80 mg tablet 80 mg PO QHS 06/20/24 Unknow n History metoprolol succinate 50 mg 50 mg PO BID #1 TAB 5 08/22/24 Rx tablet,extended release 24 hr magnesium chloride 64 mg 128 mg PO DAILY 08/17/24 Unk nown History (magnesium chloride) tablet,delayed release (Mag 64) warfarin 3 mg tablet 3 mg PO SUTUTHSA 08/17/24 Un known History losartan 100 mg tablet 100 mg PO QDAY #90 tabs 08/01 05/26 Unknown Rx potassium chloride 20 mEq 20 meq PO BID 08/20/24 Unkno wn History tablet,extended release amlodipine 10 mg tablet 10 mg PO .COMPLEX #90 tabs 0 09/04/24 Unknown Rx acetaminophen 500 mg capsule 500 mg PO QHS PRN pain Unknown History fluticasone propionate 50 spray intranasal 10/07/24 Un known History mcg/actuation nasal spray,suspension gabapentin 100 mg capsule 100 mg PO TID 10/07/24 Unkno wn History tizanidine 2 mg tablet 2 mg PO Q8 PRN Muscle Spasm 10/07/24 Unknown History Allergy/AdvReac Type Severity Reaction Status Date / Time benazepril (From Lotensin) Allergy Mild DOESNT Verified 10/07/24 21:21 REMEMBER quinapril (From Accupril) Allergy Mild UNKNOWN Verified 10/07/24 21:21 Sulfa (Sulfonamide Allergy Mild Hives Verified 10/07/24 21:21 Antibiotics) verapamil (From Calan) Allergy Mild UNKNOWN Verified 10/07/24 21:21 Family History Mother Diabetes Father Diabetes CVA (cerebral vascular accident) Heart disease Hypertension Myocardial infarction CAD (coronary artery disease) Brother Myocardial infarction Hypertension Heart disease CAD (coronary artery disease) Sister NAFLD (nonalcoholic fatty liver disease) Other Asthma COPD (chronic obstructive pulmonary disease) Surgical History Hx of amputation History of transmetatarsal amputation of right foot History of femoropopliteal bypass S/P carotid endarterectomy Social History household members: spouse Smoking Status: Never smoker alcohol intake: never substance use type: does not use ROS ROS Narrative Admission Review of Systems: CONSTITUTIONAL: No weight loss, fever, chills, + weakness or fatigue. HEENT: Eyes: No visual loss, blurred vision, double vision or yellow sclerae. Ears, Nose, Throat: No hearing loss, sneezing, congestion, runny nose or sore throat. SKIN: No rash or itching, lesions, wounds except + very stage ecchymoses, abrasion, bilateral lower extremity venous stasis skin changes. CARDIOVASCULAR: + Recent orthopnea, edema increased above baseline although improved with recent Lasix, chest pain. No palpitations, syncopal events. RESPIRATORY: + Dyspnea, cough with frothy sputum. No marked purulent sputum, wheezing, hemoptysis. GASTROINTESTINAL: + Dark cinnamon colored stools. No anorexia, nausea, vomiting or diarrhea, abdominal pain, melena, BRBPR. GENITOURINARY: No dysuria, frequency, urgency or retention. NEUROLOGICAL: No headache, dizziness, syncope, paralysis, ataxia, numbness or tingling in the extremities, focal weakness, change in bowel or bladder control,seizure. MUSCULOSKELETAL: + muscle, back pain, joint pain or stiffness. HEMATOLOGIC: + Chronic anemia, easy bleeding/bruising. LYMPHATICS: No enlarged nodes. No history of splenectomy. PSYCHIATRIC: + History of anxiety and depression chart reported. ENDOCRINOLOGIC: No reports of sweating, cold or heat intolerance. No polyuria orpolydipsia. ALLERGIES: + History of hives. Vital Signs Vital Signs Vital Signs: 10/07/24 21:21 10/07/24 21:26 10/07/24 21:42 Temperature 98.3 F 98.3 F Temperature Source Oral Oral Pulse Rate 69 69 Respiratory Rate 24 H 24 H Respiratory Effort Short of Breath Respiratory Pattern Tachypnea Blood Pressure 119/45 L 119/45 L Blood Pressure Mean 69 69 Pulse Ox 100 100 Oxygen Delivery Method Room Air Room Air Room Air 10/07/24 22:09 10/07/24 22:24 10/07/24 22:26 Temperature 98.5 F Temperature Source Oral Pulse Rate 72 72 Respiratory Rate 19 H 13 Respiratory Effort Respiratory Pattern Blood Pressure 106/42 L Blood Pressure Mean 63 Pulse Ox 94 90 Oxygen Delivery Method Room Air Room Air 10/07/24 23:00 Temperature 98 F Temperature Source Oral Pulse Rate 64 Respiratory Rate 16 Respiratory Effort Respiratory Pattern Blood Pressure 109/53 L Blood Pressure Mean 71 Pulse Ox 90 Oxygen Delivery Method Room Air Weight Weight: 155 lb 3.287 oz Body Mass Index (BMI) 27.5 Physical Exam Narrative Physical Examination: General: Awake, alert, oriented x 3 and cooperative, seated upright in ED bed, fatigued, mildly anxious. Skin: Mildly pale color, normal turgor, no icterus, no cyanosis except occasional stage ecchymoses, abrasion, bilateral lower extremity venous stasis skin changes. HEENT: AT/NC, EOMI, PERRLA, MMM, no carotid bruits, difficult to discern JVD given thickened neck. Lungs: Mildly diminished, greater bases, no evidence of any distress, mild rales, moist upper airway sounds, no rhonchi or wheezing. Heart: Mildly bradycardic with regular rhythm; no gallop, rub audible, + SM. Abdomen: Soft, mild discomfort elicited to palpation of bilateral lower quadrants but no rebound or guarding, right greater than left, mildly distended,tympanitic, hyperactive BS, no appreciated HSM. No specific focal epigastric discomfort. Extremities: No cyanosis, no clubbing, pedal to mid aguirre 2+ pitting edema, rightgreater than left secondary to previous intervention history. Neurological: Patient awake, alert, oriented as noted, cognitive function intact; pupils equally reactive to light and accommodation, cranial nerves grossly normal, moving all 4 extremities, no focal deficits, strength severely globally decreased. Psychiatric: Affect appears fatigued, no acute evidence of depressive or anxietyfeelings but does have underlying history. Results Lab / Micro Data 10/07/24 22:22 10/07/24 22:22 Labs: Laboratory Results - last 24 hr 10/07/24 22:22: WBC 7.4, RBC 1.93 L, Hgb 6.5 L, Hct 20.6 L, MCV 106.7 H, MCH 33.7 H, MCHC 31.6 L, RDW Std Deviation 72.3 H, RDW Coeff of Kate 19.2 H, Plt Count 184, MPV 11.5, Immature Gran % (Auto) 0.400, Neut % (Auto) 71.8 H, Lymph %(Auto) 18.2 L, Warren % (Auto) 8.9, Eos % (Auto) 0.4, Baso % (Auto) 0.3, Absolute Neuts (auto) 5.3, Absolute Lymphs (auto) 1.35, Nucleated RBC % 1.5, DifferentialComment SCANNED, Platelet Estimate ADEQUATE, Polychromasia 2+, Anisocytosis 2+, PT 29.4 H, INR 2.7, Sodium 134, Potassium 3.9, Chloride 102, Carbon Dioxide 16.2L, Anion Gap 16 H, BUN 36 H, Creatinine 1.46 H, Estim Creat Clear Calc 26.99 L, Est GFR (MDRD) Non-Af 35 L, BUN/Creatinine Ratio 24.9 H, Glucose 140 H, Calcium 8.6, Troponin T High Sens 46 H, NT pro BNP II 2304 H 10/07/24 23:21: Crossmatch See Detail Micro: Microbiology 10/07/24 22:53 Stool Stool Occult Blood (LATANYA) - Final Occult Blood Positive Rhythm Strip Rhythm Strip: Sinus Rhythm Rate: 65 Ectopy: None Imaging Radiology Impression Chest X-Ray 10/07/24 22:40 IMPRESSION: Trace left pleural effusion and mild cardiomegaly. Reading Location: [id number] Assessment & Plan Assessment/Plan (1) Acute upper GI bleed: (2) ABLA (acute blood loss anemia): PLAN: Plan The patient is an 83 y/o F w/ PMHx: Diabetes mellitus type II, CKD stage III perGFR trending unclear subtype, PAF, Chronic hypoxic respiratory failure 2 L NC nightly only, PAD status post femoral-popliteal bypass, Carotid stenosis status post previous endarterectomy, Dilated Cardiomyopathy/HFpEF, Hx TIA, HTN, HLD, Anxiety and Depression, GERD, Hx VTE w/ factor V Leiden on Coumadin, recent upper endoscopy 08/22/[address] Giron secondary to history of gastric ulcer for surveillance with normal esophagus, erythematous mucosa in the gastric body which was biopsied with no gross lesions presents to the [facility] ED on 10/07/2024 with history of substernal nonpleuritic heaviness and dyspnea over the last 2 days worse with laying down with mild nonproductive cough with increased swelling to her legs over the last week prompting self administration of an extra Lasix a day prior with improvement of the swelling but given worsening dyspnea prompted her to utilize her oxygen not just in the evening but through the day with stools darker in appearance for the last 1 to 2weeks but she does note she is on chronic iron supplementation also but it certainly changed in color from previous. #1. Acute GI Bleed w/ resultant Acute Blood Loss Anemia on chronic anemia/iron deficiency anemia secondary to underlying coagulopathy on Coumadin therapy for history of factor V Leiden with VTE complicated by history of recent gastric ulcer with previous history GI bleed: Status post initiation of 2 unit PRBC in the ED as well as FFP, will admit to PCU given stable vital signs currently, will repeat INR following FFP completion, monitor for overload with FFP and PRBCadministration with IV Lasix in between, will continue serial H&H assessment, maintain on IV Protonix drip, n.p.o. status, gastroenterology consult and evaluation pending. Once amenable per GI would immediately start heparin drip ifamenable and restart antiplt therapy once allowed also. Continue oral iron supplementation. #2. Chest Pain with indeterminate cardiac enzyme of unclear significance but suspect demand given #1 with EKG changes felt associated: EKG in ED sinus rhythmwith ST depression lateral leads but no evidence of STEMI, CXR w/ trace pleural effusion mild cardiomegaly, initial trop 46. Will maintain on a monitored bed toassure no acute myocardial infarction with serial cardiac enzymes and EKGs. Mag requested. FLP in AM. Holding Plavix, reversing Coumadin given #1, awaiting GI evaluation, resume antiplatelet therapy and coumadin. If enzymes rise low threshold to involve cardiology and obtain ECHO. #3. Suspected component Acute Decompensated HFpEF/dilated cardiopathy: Will maintain on cardiac telemetry, obtain cardiac enzyme series, obtain serial EKGs,will attempt pulsed dose Lasix in between PRBC and FFP with further IV as neededotherwise transition plan to oral home Lasix regimen, monitor I/Os, patient unable to tolerate radha wraps of note thus will defer, most recent echocardiogram05/08/2024 with LV mildly dilated, LV systolic function 63? percent, RV normal in size, RV systolic function normal, mildly dilated LA, aorta dilated with maximaldimension 4.1 cm. #4. Mildly elevated creatinine/insufficiency on Chronic Kidney Disease Stage III, unclear subtype per GFR trending likely secondary to #1 with acute blood loss anemia/hypoperfusion: Admission BUN/Cr 36/1.46, GFR 35, baseline renal function primarily 1.0-1.1, repeat BMP in AM. #5. PAD: s/p R fem-pop bypass 01/2024 performed due to acute in-situ R popliteal thrombosis with associated R toe ischemia w/ attempted endovascular R tibial intervention 03/2024 w/ eventual R calf hematoma evacuation, 2 compartment fasciotomy, and revision jump graft from her fem-pop bypass to PT with reversed GSV 03/12/2024 and then follow-up R TMA 03/15/2024. Per family, unfortunately occurred when she had to be off Coumadin thus as noted above wouldbenefit greatly from immediate restart of at least a heparin drip once cleared by gastroenterology and antiplatelet therapy once amenable also. As noted temporally holding Plavix, Coumadin with FFP being administered with repeat INR following and in a.m., continue hypertensive regimen, continue statin therapy. #6. Carotid disease: Status post endarterectomy, temporarily holding Plavix, Coumadin with FFP being administered with repeat INR following and in a.m., continue hypertensive regimen, continue statin therapy. #7. History of TIA: As noted temporally holding Plavix, Coumadin, continue hypertensive regimen, statin therapy, temporarily holding oral diabetic regimen with insulin sliding scale as noted. #8. Hypertension: Continue home regimen including losartan, metoprolol, amlodipine, oral Lasix with IV post Lasix as noted above, PRN hydralazine. #9. Hyperlipidemia: Will continue patient on statin therapy. #10. PAF: Will continue patient on metoprolol regimen, holding Coumadin with FFP administration planned as noted, resume once clinically appropriate. #11. Diabetes mellitus type II with chronic neuropathy: Hold oral home regimen,n.p.o. status given #1, maintain on every 6 hours accu checks w/ ISS, continue home gabapentin regimen. #12. Anxiety and depression: Per current list does not appear to be on regimen,noted in chart history, encourage continued outpatient evaluation. #13. DVT prophylaxis: SCDs, reversing coumadin, pending INR following FFP completion and repeat in AM. #14. CODE status: Patient AMNA is her who is present and living will is currently in place. Discussed CODE status at length including difference between FULL code, DNR-CCA and DNR-CC status. Following discussions about the differences in these status, requested following lengthy discussion and several examples eventually Full Code status. Per they had apparently been DNR CCA in the past but it is unclear if they understood with this fully manage following current discussions. Advanced Care Planning Face to Face Time: 16 minutes. Charges/Coding Visit Charges Inpatient E&M: 66182 Init Hosp L3 Procedures Hospitalists Procedures: 08628 Advncd Care Plan 30 Min 10/08/24 0032 <Electronically signed by Kelsie Muñoz MD> Cosigner Signature (if applicable): CC: Dr. Kelsie Muñoz MD; Dr. Kierra Santiago MD~ Signed [facility] Work Phone: Reason for referral (narrative)* Outpatient Procedure (Routine) - Authorized Specialty Diagnoses / Procedures Referred By Gilbert vaughn Referred [facility] Diagnoses Stenosis of carotid artery, unspecified laterality History of carotid endarterectomy Procedures US CAROTID ARTERIES KWADWO VAS LAB DUPLEX SCAN EXTRACRANIAL ART COMPL BI STUDY Anastasiia Colón APRN.CNS [address] [place] [address] [facility] [address] [place] [address] Referral ID Status Reason Start Date Expiration Date Visits Requested Visits Authorized [id number] Authorized Auto-Generat ed Referral 07/01/2022 07/01/2023 1 1 * Consult, Test, Treat (Routine) - Pending Review Specialty Diagnoses / Procedures Referred By Gilbert vaughn Referred To Contact Podiatry Diagnoses Type 2 diabetes mellitus with hyperglycemia, without long-term current use of insulin (HCC) Callus of foot Injury of toe on right foot, subsequent encounter Procedures CONSULT TO PODIATRY OFFICE/OUTPATIENT NEW HIGH MDM 60-74 MINUTES Anastasiia Colón APRN.CNS [address] [place] [address] Referral ID Status Reason Start Date Expiration Date Visits Requested Visits Authorized [id number] Pending Review PCP Requested Referral 07/01/2022 07/01/2023 1 1 [facility] for referral (narrative)* Outpatient Procedure (Routine) - Pending Review Specialty Diagnoses / Procedures Referred By Contac t Referred To Contact [facility] [place] Diagnoses Carotid stenosis, asymptomatic, bilateral Procedures US CAROTID ARTERIES KWADWO VAS LAB DUPLEX SCAN EXTRACRANIAL ART COMPL BI STUDY Kailee Johnson MD [address] [place] [address] [facility] [address] [address] Referral ID Status Reason Start Date Expiration Date Visits Requested Visits Authorized [id number] Pending Review Auto-Generat ed Referral 12/01/2022 12/01/2023 1 1 [facility] for referral (narrative)* Outpatient Procedure (Routine) - Authorized Specialty Diagnoses / Procedures Referred By Contac t Referred To Contact [facility] [place] Diagnoses Bilateral carotid artery stenosis Procedures US CAROTID ARTERIES KWADWO VAS LAB DUPLEX SCAN EXTRACRANIAL ART COMPL BI Lelo Salcedo APRN.PET AMBASSADOR [address] [place] [address] [facility] [address] [place] [address] Referral ID Status Reason Start Date Expiration Date Visits Requested Visits Authorized [id number] Authorized Auto-Generat ed Referral 3 03/14/2024 1 1 [facility] for referral (narrative)* Outpatient Procedure (Routine) - Authorized Specialty Diagnoses / Procedures Referred By Contac t Referred To [facility] Diagnoses Bilateral carotid artery stenosis Procedures US CAROTID ARTERIES KWADWO VAS LAB DUPLEX SCAN EXTRACRANIAL ART COMPL BI STUDY Mary Kay Delgado DO [address] [place] [address] [facility] [address] [place] [address] Referral ID Status Reason Start Date Expiration Date Visits Requested Visits Authorized [id number] Authorized Auto-Generat ed Referral 10/04/2023 10/03/2024 1 1 [facility] for referral (narrative)* Diagnostic Procedure Only (Routine) - Authorized Specialty Diagnoses / Procedures Referred By Contac t Referred To Contact US IMAGING Diagnoses Elevated alanine aminotransferase (ALT) level Procedures US ABD RIGHT UPPER QUADRANT US ABDOMINAL REAL TIME W/IMAGE LIMITED Joelle Barreto LUDLOW MACHINE OPERATOR.PET AMBASSADOR [address] [place] [address] [place] [address] Referral ID Status Reason Start Date Expiration Date Visits Requested Visits Authorized [id number] Authorized Auto-Generat ed Referral 11/18/2023 12/17/2024 1 1 [facility] for referral (narrative)* Diagnostic Procedure Only (Routine) - Closed Specialty Diagnoses / Procedures Referred By Contac t Referred To Contact US IMAGING Diagnoses Elevated alanine aminotransferase (ALT) level Procedures US ABD RIGHT UPPER QUADRANT US ABDOMINAL REAL TIME W/IMAGE LIMITED Joelle Barreto LUDLOW MACHINE OPERATOR.PET AMBASSADOR [address] [place] [address] [place] [address] Referral ID Status Reason Start Date Expiration Date V isits Requested Visits Authorized [id number] Closed Auto-Generate d Referral 11/18/2023 12/17/2024 1 1 [facility] for referral (narrative)* Outpatient Procedure (Routine) - Authorized Specialty Diagnoses / Procedures Referred By Contac t Referred To Contact [facility] [place] Diagnoses Aortic valve disorder Procedures ECHO ECHO TTHRC R-T 2D W/WOM-MODE COMPL SPEC&COLR D Terrence Jane MD [address], [address] [address] [facility] [address] [address] Referral ID Status Reason Start Date Expiration Date Visits Requested Visits Authorized [id number] Authorized Auto-Generat ed Referral 04/23/2025 1 1 [facility] for visit Narrative* Outpatient Procedure (Routine) - Closed Specialty Diagnoses / Procedures Referred By Contac t Referred To Contact [facility] [place] Diagnoses Chest pain, unspecified type Procedures STRESS ECHO TREADMILL ECHO TTHRC R-T 2D W/WO M-MODE COMPLETE REST&ST DorchesterAnastasiia, LUDLOW MACHINE OPERATOR.[facility] [address] [place] [address] [facility] [address] [place] [address] Referral ID Status Reason Start Date Expiration Date V isits Requested Visits Authorized [id number] Closed Auto-Generate d Referral 10/12/2023 05/01/2024 1 1 [facility] Reason for Referral Specialty Diagnoses / Procedures Referred By Contac t Referred To Contact Ophthalmology Diagnoses Screening for diabetic retinopathy Procedures CONSULT TO OPHTHALMOLOGY OFFICE/OUTPATIENT [facility] 60-74 MINUTES ColónAnastasiia adler, LUDLOW MACHINE OPERATOR.[facility] [address] [place] [address] Referral ID Status Reason Start Date Expiration Date Visits Requested Visits Authorized [id number] Authorized PCP Requested Referral 08/02/2022 08/02/2023 1 1 Specialty Diagnoses / Procedures Referred By Contac t Referred To Contact Vascular Surgery Diagnoses Stenosis of carotid artery, unspecified laterality History of carotid endarterectomy History of transient ischemic attack (TIA) Stenosis of left carotid artery Procedures CONSULT TO VASCULAR SURGERY OFFICE/OUTPATIENT [facility] 60-74 MINUTES Anastasiia Colón, LUDLOW MACHINE OPERATOR.CASING MATERIAL WEIGHER [address] [place] [address] Referral ID Status Reason Start Date Expiration Date Visits Requested Visits Authorized [id number] Authorized PCP Requested Referral 08/10/2022 08/10/2023 1 1 Specialty Diagnoses / Procedures Referred By Contac t Referred To Contact Vascular Medicine Diagnoses Stenosis of carotid artery, unspecified laterality History of carotid endarterectomy History of transient ischemic attack (TIA) Stenosis of left carotid artery Procedures CONSULT TO VASCULAR MEDICINE OFFICE/OUTPATIENT [facility] 60-74 MINUTES Anastasiia Colón, LUDLOW MACHINE OPERATOR.CASING MATERIAL WEIGHER [address] [place] [address] Referral ID Status Reason Start Date Expiration Date Visits Requested Visits Authorized [id number] Authorized PCP Requested Referral 08/10/2022 08/10/2023 1 1 Specialty Diagnoses / Procedures Referred By Contac t Referred To Contact CT IMAGING Diagnoses Lung nodules Procedures CT CHEST WO IVCON DIAGNOSTIC COMPUTED TOMOGRAPHY THORAX W/O CNTRST Mary Kay Delgado, DO [address] [place] [id number] [facility] [place] [address] Referral ID Status Reason Start Date Expiration Date V isits Requested Visits Authorized [id number] Closed Auto-Generate d Referral 11/08/2022 12/08/2023 1 1 Specialty Diagnoses / Procedures Referred By Contac t Referred To Contact CT IMAGING Diagnoses Occlusion and stenosis of unspecified carotid artery Procedures CTA NECK W IVCON CT ANGIOGRAPHY NECK W/CONTRAST/NONCONTRAST Mary Kay Delgado, DO [address] [place] [id number] [facility] [place] [address] Referral ID Status Reason Start Date Expiration Date V isits Requested Visits Authorized [id number] Closed Auto-Generate d Referral 09/21/2022 10/21/2023 1 1 Specialty Diagnoses / Procedures Referred By Contac t Referred To Contact CT IMAGING Diagnoses Occlusion and stenosis of unspecified carotid artery Procedures CTA HEAD W IVCON CT ANGIOGRAPHY HEAD W/CONTRAST/NONCONTRAST Mary Kay Delgado, DO [address] [place] [address] Ct Imaging [place] [address] Referral ID Status Reason Start Date Expiration Date V isits Requested Visits Authorized [id number] Closed Auto-Generate d Referral 09/21/2022 10/21/2023 1 1 Specialty Diagnoses / Procedures Referred By Contac t Referred To Contact Dermatology Diagnoses Facial lesion Procedures CONSULT TO DERMATOLOGY Anastasiia Colón, LUDLOW MACHINE OPERATOR.CASING MATERIAL WEIGHER [address] [place] [address] Referral ID Status Reason Start Date Expiration Date Visits Requested Visits Authorized [id number] Ref Not Required PCP Requested Referral 06/07/2023 06/06/2024 1 1 Specialty Diagnoses / Procedures Referred By Contac t Referred To Contact Diagnoses Uncontrolled type 2 diabetes mellitus with hyperglycemia (HCC) Procedures CONSULT TO DIABETES EDUCATION DSME/MNT MEDICAL NUTRITION ASSMT&IVNTJ INDIV EACH 15 [place] MEDICAL NUTRITION ASSMT&IVNTJ INDIV EACH 15 [place] MEDICAL NUTRITION ASSMT&IVNTJ INDIV EACH 15 [place] MEDICAL NUTRITION ASSMT&IVNTJ INDIV EACH 15 [place] Anastasiia Colón, LUDLOW MACHINE OPERATOR.CASING MATERIAL WEIGHER [address] [place] [address] Referral ID Status Reason Start Date Expiration Date Visits Requested Visits Authorized [id number] Pending Review PCP Requested Referral 10/11/2023 10/10/2024 1 1 Specialty Diagnoses / Procedures Referred By Contac t Referred To Contact Gastroenterology Diagnoses Transaminitis Procedures CONSULT TO GASTROENTEROLOGY OFFICE/OUTPATIENT [facility] 60 MINUTES Anastasiia Colón, LUDLOW MACHINE OPERATOR.CASING MATERIAL WEIGHER [address] [place] [address] Referral ID Status Reason Start Date Expiration Date Visits Requested Visits Authorized [id number] Pending Review PCP Requested Referral 10/10/2023 10/09/2024 1 1 Specialty Diagnoses / Procedures Referred By Contac t Referred To Contact [facility] Diagnoses Chest pain, unspecified type Procedures STRESS ECHO TREADMILL ECHO TTHRC R-T 2D W/WO M-MODE COMPLETE REST&ST Anastasiia Colón, LUDLOW MACHINE OPERATOR.CASING MATERIAL WEIGHER [address] [place] [address] [facility] [address] [place] [address] Referral ID Status Reason Start Date Expiration Date Visits Requested Visits Authorized [id number] Pending Review Auto-Generat ed Referral 10/10/2023 10/09/2024 1 1 Specialty Diagnoses / Procedures Referred By Contac t Referred To Contact Cardiology Diagnoses Atrial fibrillation, unspecified type (HCC) Chest pain, unspecified type Procedures CONSULT TO CARDIOLOGY OFFICE/OUTPATIENT [facility] MDM 60 MINUTES Anastasiia Colón, LUDLOW MACHINE OPERATOR.CASING MATERIAL WEIGHER [address] [place] [address] Referral ID Status Reason Start Date Expiration Date Visits Requested Visits Authorized [id number] Pending Review PCP Requested Referral 10/10/2023 10/09/2024 1 1 Specialty Diagnoses / Procedures Referred By Contac t Referred To Contact CT IMAGING Diagnoses Lung nodules Procedures CT CHEST WO IVCON DIAGNOSTIC COMPUTED TOMOGRAPHY THORAX W/O CNTRST Anastasiia Colón, LUDLOW MACHINE OPERATOR.CASING MATERIAL WEIGHER [address] [place] [address] [place] [address] Referral ID Status Reason Start Date Expiration Date Visits Requested Visits Authorized [id number] Authorized Auto-Generat ed Referral 05/02/2023 05/01/2024 1 1 Referral ID Status Reason Start Date Expiration Date Visits Requested Visits Authorized [id number] Authorized Auto-Generat ed Referral 05/08/2024 06/07/2025 1 1 Referral ID Status Reason Start Date Expiration Date Visits Requested Visits Authorized [id number] Authorized Auto-Generat ed Referral 05/08/2024 06/07/2025 1 1 Advance Directives No Advanced Directives Records FoundDocuments on File Type Date Recorded 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 Advance Directive(s) 01/11/2024 10:31 AM Documents on File Type Date Recorded 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 Yes March 20, 2024 2:40pm Name of Medical Power of Reading Tutor Ruth Pritchard March 20, 2024 2:40pm Living Will Yes April 04 9:05am Do you have a Healthcare Power of Reading Tutor? Yes April 04, 2024 9:05am Name of Medical Power of Reading Tutor DORIS April 04, 2024 9:05am Advance Directive Response Recorded Date/ Time Living Will Yes August 17, 2024 10:51am Do you have a Healthcare Power of Reading Tutor? Yes August 17, 2024 10:51am Name of Medical Power of Reading Tutor August 17, 2024 10:51am Advance Directive Response Recorded Date/ Time Do you have a Healthcare Power of Reading Tutor? Yes October 07, 2024 9:35pm Living Will Yes August 17, 2024 10:51am Do you have a Healthcare Power of Reading Tutor? Yes August 17, 2024 10:51am Name of Medical Power of Reading Tutor August 17, 2024 10:51am Chief Complaint and Reason for Visit Chief Complaint Admit Date RIGHT TRANSMETATARSAL AMPUTATION Novembe r 2023 6:10pm RIGHT TRANSMETATARSAL AMPUTATION Novembe r 2023 12:58pm RIGHT TRANSMETATARSAL AMPUTATION Novembe r 2023 8:15am RIGHT TRANSMETATARSAL AMPUTATION Decembe r 2023 5:03pm RIGHT TRANSMETATARSAL AMPUTATION Decembe r 2023 8:30am [facility] 128 CHF May 14, 2024 1 :25pm Encounter [...] 2024 8:20am GERD (gastroesophageal reflux disease) F ebruary 2024 8:20am Anticoagulant long-term use June 9:53am Aortic valve stenosis June 20 9:53am Chronic a-fib February 19th, 2025 9:53am Hyperlipidemia June 20, 2024 9:53am Peripheral vascular disease June 9:53am Chief Complaint Admit Date RIGHT TRANSMETATARSAL AMPUTATION Novembe r 2023 6:10pm RIGHT TRANSMETATARSAL AMPUTATION Decembe r 2023 5:03pm RIGHT TRANSMETATARSAL AMPUTATION Decembe r 2023 8:30am [facility] 128 CHF May 14, 2024 1 :25pm Encounter for surgical aftercare followi ng surgery May 28, 2024 8:56am 4 M FU, 2 M F from hospital June 8:31am Gastroesophageal reflux disease (GERD) F [facility] 2024 8:20am E-ORDER June 20, 2024 9:44am 1 M FU June 20, 2024 9:53am E-ORDER July 10, 2024 9:4 1am INT LAB ORDER July 25, 2024 11: 07am Chief Complaint Admit Date [facility] 04/08 CHF May 14, 2024 1 :25pm Encounter for surgical aftercare followi ng surgery May 28, 2024 8:56am 4 M FU, 2 M F from hospital June 8:31am Gastroesophageal reflux disease (GERD) F [facility] 2024 8:20am E-ORDER June 20, 2024 9:44am [...] 2024 8:20am GERD (gastroesophageal reflux disease) F [facility] 2024 8:20am Anticoagulant long-term use June 9:53am Aortic valve stenosis June 20 9:53am Chronic a-fib June 20, 2024 9:53am Hyperlipidemia June 20, 2024 9:53am Peripheral vascular disease June 9:53am Chief Complaint Admit Date 4 M FU, 2 M F from hospital June 8:31am Gastroesophageal reflux disease (GERD) F [facility] 2024 8:20am E-ORDER June 20, 2024 9:44am 1 M FU June 20, 2024 9:53am E-ORDER July 10, 2024 9:4 1am INT LAB ORDER July 25, 2024 11: 07am E ORDER August 15, 2024 9:5 4am POST OP, PVD August 28, 2024 8:3 7am DWD September 06, 2024 8:49am Reason for Visit Admit Date Carotid artery disease June 12 8:31am Diarrhea June 12, 2024 8:31am Peripheral vascular disease June 8:31am Diarrhea June 19, 2024 8:20am Gastric ulcer June 19, 2024 8:20am GERD (gastroesophageal reflux disease) F [facility] 2024 8:20am Anticoagulant long-term use June 9:53am Aortic valve stenosis June 20 9:53am Chronic a-fib June 20, 2024 9:53am Hyperlipidemia June 20, 2024 9:53am Peripheral vascular disease June 9:53am Gastric ulcer August 22, 2024 11: 25am Chief Complaint Admit Date 4 M FU, 2 M F from hospital June 8:31am Gastroesophageal reflux disease (GERD) F [facility] 2024 8:20am E-ORDER June 20, 2024 9:44am [...] AND SWELLING October 02, 2024 12:51 pm Chief Complaint Admit Date 4 M FU, 2 M F from hospital June 8:31am Gastroesophageal reflux disease (GERD) F [facility] 2024 8:20am E-ORDER June 20, 2024 9:44am [...] AND SWELLING October 02, 2024 12:51 pm GI BLEED, ABLA, CHEST PAIN/?HF EXAC October 07, 2024 11:57pm Reason for Visit Admit Date Carotid artery disease June 12 8:31am Diarrhea June 12, 2024 8:31am Peripheral vascular disease June 8:31am Diarrhea June 19, 2024 8:20am Gastric ulcer June 19, 2024 8:20am GERD (gastroesophageal reflux disease) F [facility] 2024 8:20am Anticoagulant long-term use June 9:53am Aortic valve stenosis June 20 9:53am Chronic a-fib June 20, 2024 9:53am Hyperlipidemia June 20, 2024 9:53am Peripheral vascular disease June 9:53am Gastric ulcer August 22, 2024 11: 25am ABLA (acute blood loss anemia) October 07, 2024 11:57pm Acute upper GI bleed October 07, 2024 11:5 7pm 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) October 07, 2024 11:57pm Pleural effusion, left October 07, 2024 11 :57pm Subendocardial ischemia October 07, 2024 1 1:57pm Warfarin-induced coagulopathy October 07, 2024 11:57pm Family History No Family History Records Found Relationship Condition Age at Onset Recorded Date/T laine Not Specified Diabetes mellitus Unknown Cardiac disease Unknown Myocardial infarction Unknown Chronic obstructive pulmonary disease Unk nown Hypertension Unknown Cerebrovascular accident (CVA) Unknown Asthma Unknown Relationship Condition Age at Onset Recorded Date/T laine Not Specified Chronic obstructive pulmonary disease Un known Asthma Unknown mother Diabetes mellitus Unknown father Diabetes mellitus Unknown Cerebrovascular accident (CVA) Unknown Cardiac disease Unknown Hypertension Unknown Myocardial infarction Unknown Coronary artery disease Unknown brother Myocardial infarction Unknown sister Nonalcoholic fatty liver disease Unknown Summary Purpose Additional Source Comments Source Comments (unrecognize d section and content) In the event this informatio n is protected by the Federal Confidentiality of Alcohol and Drug Abuse Patient Records regulations: The Federal rules restrict any use of the information to criminally investigate or prosecute any alcohol or drug abuse patient.[facility] the event this information is protected by the Federal Confidentiality of Alcohol and Drug Abuse Patient Records regulations: The Federal rules restrict any use of the information to criminally investigate or prosecute any alcohol or drug abuse patient.[facility] the event this information is protected by the Federal Confidentiality of Alcohol and Drug Abuse Patient Records regulations: The Federal rules restrict any use of the information to criminally investigate or prosecute any alcohol or drug abuse patient.[facility] the event this information is protected by the Federal Confidentiality of Alcohol and Drug Abuse Patient Records regulations: The Federal rules restrict any use of the information to criminally investigate or prosecute any alcohol or drug abuse patient.[facility] Hospital[facility] the event this information is protected by the Federal Confidentiality of Alcohol and Drug Abuse Patient Records regulations: The Federal rules restrict any use of the information to criminally investigate or prosecute any alcohol or drug abuse patient.[facility] Hospital[facility] the event this information is protected by the Federal Confidentiality of Alcohol and Drug Abuse Patient Records regulations: The Federal rules restrict any use of the information to criminally investigate or prosecute any alcohol or drug abuse patient.[facility] HospitalIn the event this information is protected by the Federal Confidentiality of Alcohol and Drug Abuse Patient Records regulations: The Federal rules restrict any use of the information to criminally investigate or prosecute any alcohol or drug abuse patient.[facility] Hospital[facility] the event this information is protected by the Federal Confidentiality of Alcohol and Drug Abuse Patient Records regulations: The Federal rules restrict any use of the information to criminally investigate or prosecute any alcohol or drug abuse patient.[facility] Hospital[facility] the event this information is protected by the Federal Confidentiality of Alcohol and Drug Abuse Patient Records regulations: The Federal rules restrict any use of the information to criminally investigate or prosecute any alcohol or drug abuse patient.[facility] HospitalIn the event this information is protected by the Federal Confidentiality of Alcohol and Drug Abuse Patient Records regulations: The Federal rules restrict any use of the information to criminally investigate or prosecute any alcohol or drug abuse patient.[facility] HospitalIn the event this information is protected by the Federal Confidentiality of Alcohol and Drug Abuse Patient Records regulations: The Federal rules restrict any use of the information to criminally investigate or prosecute any alcohol or drug abuse patient.[facility] HospitalIn the event this information is protected by the Federal Confidentiality of Alcohol and Drug Abuse Patient Records regulations: The Federal rules restrict any use of the information to criminally investigate or prosecute any alcohol or drug abuse patient.[facility] HospitalIn the event this information is protected by the Federal Confidentiality of Alcohol and Drug Abuse Patient Records regulations: The Federal rules restrict any use of the information to criminally investigate or prosecute any alcohol or drug abuse patient.[facility] HospitalIn the event this information is protected by the Federal Confidentiality of Alcohol and Drug Abuse Patient Records regulations: The Federal rules restrict any use of the information to criminally investigate or prosecute any alcohol or drug abuse patient.[facility] HospitalIn the event this information is protected by the Federal Confidentiality of Alcohol and Drug Abuse Patient Records regulations: The Federal rules restrict any use of the information to criminally investigate or prosecute any alcohol or drug abuse patient.[facility] HospitalIn the event this information is protected by the Federal Confidentiality of Alcohol and Drug Abuse Patient Records regulations: The Federal rules restrict any use of the information to criminally investigate or prosecute any alcohol or drug abuse patient.[facility] HospitalIn the event this information is protected by the Federal Confidentiality of Alcohol and Drug Abuse Patient Records regulations: The Federal rules restrict any use of the information to criminally investigate or prosecute any alcohol or drug abuse patient.[facility] HospitalIn the event this information is protected by the Federal Confidentiality of Alcohol and Drug Abuse Patient Records regulations: The Federal rules restrict any use of the information to criminally investigate or prosecute any alcohol or drug abuse patient.[facility] HospitalIn the event this information is protected by the Federal Confidentiality of Alcohol and Drug Abuse Patient Records regulations: The Federal rules restrict any use of the information to criminally investigate or prosecute any alcohol or drug abuse patient.[facility] HospitalIn the event this information is protected by the Federal Confidentiality of Alcohol and Drug Abuse Patient Records regulations: The Federal rules restrict any use of the information to criminally investigate or prosecute any alcohol or drug abuse patient.[facility] HospitalIn the event this information is protected by the Federal Confidentiality of Alcohol and Drug Abuse Patient Records regulations: The Federal rules restrict any use of the information to criminally investigate or prosecute any alcohol or drug abuse patient.[facility] HospitalIn the event this information is protected by the Federal Confidentiality of Alcohol and Drug Abuse Patient Records regulations: The Federal rules restrict any use of the information to criminally investigate or prosecute any alcohol or drug abuse patient.[facility] HospitalIn the event this information is protected by the Federal Confidentiality of Alcohol and Drug Abuse Patient Records regulations: The Federal rules restrict any use of the information to criminally investigate or prosecute any alcohol or drug abuse patient.[facility] HospitalIn the event this information is protected by the Federal Confidentiality of Alcohol and Drug Abuse Patient Records regulations: The Federal rules restrict any use of the information to criminally investigate or prosecute any alcohol or drug abuse patient.[facility] HospitalIn the event this information is protected by the Federal Confidentiality of Alcohol and Drug Abuse Patient Records regulations: The Federal rules restrict any use of the information to criminally investigate or prosecute any alcohol or drug abuse patient.[facility] HospitalIn the event this information is protected by the Federal Confidentiality of Alcohol and Drug Abuse Patient Records regulations: The Federal rules restrict any use of the information to criminally investigate or prosecute any alcohol or drug abuse patient.[facility] HospitalIn the event this information is protected by the Federal Confidentiality of Alcohol and Drug Abuse Patient Records regulations: The Federal rules restrict any use of the information to criminally investigate or prosecute any alcohol or drug abuse patient.[facility] HospitalIn the event this information is protected by the Federal Confidentiality of Alcohol and Drug Abuse Patient Records regulations: The Federal rules restrict any use of the information to criminally investigate or prosecute any alcohol or drug abuse patient.[facility] HospitalIn the event this information is protected by the Federal Confidentiality of Alcohol and Drug Abuse Patient Records regulations: The Federal rules restrict any use of the information to criminally investigate or prosecute any alcohol or drug abuse patient.[facility] HospitalIn the event this information is protected by the Federal Confidentiality of Alcohol and Drug Abuse Patient Records regulations: The Federal rules restrict any use of the information to criminally investigate or prosecute any alcohol or drug abuse patient.[facility] HospitalIn the event this information is protected by the Federal Confidentiality of Alcohol and Drug Abuse Patient Records regulations: The Federal rules restrict any use of the information to criminally investigate or prosecute any alcohol or drug abuse patient.[facility] HospitalIn the event this information is protected by the Federal Confidentiality of Alcohol and Drug Abuse Patient Records regulations: The Federal rules restrict any use of the information to criminally investigate or prosecute any alcohol or drug abuse patient.[facility] HospitalIn the event this information is protected by the Federal Confidentiality of Alcohol and Drug Abuse Patient Records regulations: The Federal rules restrict any use of the information to criminally investigate or prosecute any alcohol or drug abuse patient.[facility] HospitalIn the event this information is protected by the Federal Confidentiality of Alcohol and Drug Abuse Patient Records regulations: The Federal rules restrict any use of the information to criminally investigate or prosecute any alcohol or drug abuse patient.[facility] HospitalIn the event this information is protected by the Federal Confidentiality of Alcohol and Drug Abuse Patient Records regulations: The Federal rules restrict any use of the information to criminally investigate or prosecute any alcohol or drug abuse patient.[facility] HospitalIn the event this information is protected by the Federal Confidentiality of Alcohol and Drug Abuse Patient Records regulations: The Federal rules restrict any use of the information to criminally investigate or prosecute any alcohol or drug abuse patient.[facility] HospitalIn the event this information is protected by the Federal Confidentiality of Alcohol and Drug Abuse Patient Records regulations: The Federal rules restrict any use of the information to criminally investigate or prosecute any alcohol or drug abuse patient.[facility] HospitalIn the event this information is protected by the Federal Confidentiality of Alcohol and Drug Abuse Patient Records regulations: The Federal rules restrict any use of the information to criminally investigate or prosecute any alcohol or drug abuse patient.[facility] HospitalIn the event this information is protected by the Federal Confidentiality of Alcohol and Drug Abuse Patient Records regulations: The Federal rules restrict any use of the information to criminally investigate or prosecute any alcohol or drug abuse patient.[facility] HospitalIn the event this information is protected by the Federal Confidentiality of Alcohol and Drug Abuse Patient Records regulations: The Federal rules restrict any use of the information to criminally investigate or prosecute any alcohol or drug abuse patient.[facility] HospitalIn the event this information is protected by the Federal Confidentiality of Alcohol and Drug Abuse Patient Records regulations: The Federal rules restrict any use of the information to criminally investigate or prosecute any alcohol or drug abuse patient.[facility] HospitalIn the event this information is protected by the Federal Confidentiality of Alcohol and Drug Abuse Patient Records regulations: The Federal rules restrict any use of the information to criminally investigate or prosecute any alcohol or drug abuse patient.[facility] HospitalIn the event this information is protected by the Federal Confidentiality of Alcohol and Drug Abuse Patient Records regulations: The Federal rules restrict any use of the information to criminally investigate or prosecute any alcohol or drug abuse patient.[facility] HospitalIn the event this information is protected by the Federal Confidentiality of Alcohol and Drug Abuse Patient Records regulations: The Federal rules restrict any use of the information to criminally investigate or prosecute any alcohol or drug abuse patient.[facility] HospitalIn the event this information is protected by the Federal Confidentiality of Alcohol and Drug Abuse Patient Records regulations: The Federal rules restrict any use of the information to criminally investigate or prosecute any alcohol or drug abuse patient.[facility] HospitalIn the event this information is protected by the Federal Confidentiality of Alcohol and Drug Abuse Patient Records regulations: The Federal rules restrict any use of the information to criminally investigate or prosecute any alcohol or drug abuse patient.[facility] HospitalIn the event this information is protected by the Federal Confidentiality of Alcohol and Drug Abuse Patient Records regulations: The Federal rules restrict any use of the information to criminally investigate or prosecute any alcohol or drug abuse patient.[facility] HospitalIn the event this information is protected by the Federal Confidentiality of Alcohol and Drug Abuse Patient Records regulations: The Federal rules restrict any use of the information to criminally investigate or prosecute any alcohol or drug abuse patient.[facility] HospitalIn the event this information is protected by the Federal Confidentiality of Alcohol and Drug Abuse Patient Records regulations: The Federal rules restrict any use of the information to criminally investigate or prosecute any alcohol or drug abuse patient.[facility] HospitalIn the event this information is protected by the Federal Confidentiality of Alcohol and Drug Abuse Patient Records regulations: The Federal rules restrict any use of the information to criminally investigate or prosecute any alcohol or drug abuse patient.[facility] HospitalIn the event this information is protected by the Federal Confidentiality of Alcohol and Drug Abuse Patient Records regulations: The Federal rules restrict any use of the information to criminally investigate or prosecute any alcohol or drug abuse patient.[facility] HospitalIn the event this information is protected by the Federal Confidentiality of Alcohol and Drug Abuse Patient Records regulations: The Federal rules restrict any use of the information to criminally investigate or prosecute any alcohol or drug abuse patient.[facility] HospitalIn the event this information is protected by the Federal Confidentiality of Alcohol and Drug Abuse Patient Records regulations: The Federal rules restrict any use of the information to criminally investigate or prosecute any alcohol or drug abuse patient.[facility] HospitalIn the event this information is protected by the Federal Confidentiality of Alcohol and Drug Abuse Patient Records regulations: The Federal rules restrict any use of the information to criminally investigate or prosecute any alcohol or drug abuse patient.[facility] HospitalIn the event this information is protected by the Federal Confidentiality of Alcohol and Drug Abuse Patient Records regulations: The Federal rules restrict any use of the information to criminally investigate or prosecute any alcohol or drug abuse patient.[facility] HospitalIn the event this information is protected by the Federal Confidentiality of Alcohol and Drug Abuse Patient Records regulations: The Federal rules restrict any use of the information to criminally investigate or prosecute any alcohol or drug abuse patient.[facility] HospitalIn the event this information is protected by the Federal Confidentiality of Alcohol and Drug Abuse Patient Records regulations: The Federal rules restrict any use of the information to criminally investigate or prosecute any alcohol or drug abuse patient.[facility] HospitalIn the event this information is protected by the Federal Confidentiality of Alcohol and Drug Abuse Patient Records regulations: The Federal rules restrict any use of the information to criminally investigate or prosecute any alcohol or drug abuse patient.[facility] HospitalIn the event this information is protected by the Federal Confidentiality of Alcohol and Drug Abuse Patient Records regulations: The Federal rules restrict any use of the information to criminally investigate or prosecute any alcohol or drug abuse patient.[facility] HospitalIn the event this information is protected by the Federal Confidentiality of Alcohol and Drug Abuse Patient Records regulations: The Federal rules restrict any use of the information to criminally investigate or prosecute any alcohol or drug abuse patient.[facility] HospitalIn the event this information is protected by the Federal Confidentiality of Alcohol and Drug Abuse Patient Records regulations: The Federal rules restrict any use of the information to criminally investigate or prosecute any alcohol or drug abuse patient.[facility] HospitalIn the event this information is protected by the Federal Confidentiality of Alcohol and Drug Abuse Patient Records regulations: The Federal rules restrict any use of the information to criminally investigate or prosecute any alcohol or drug abuse patient.[facility] HospitalIn the event this information is protected by the Federal Confidentiality of Alcohol and Drug Abuse Patient Records regulations: The Federal rules restrict any use of the information to criminally investigate or prosecute any alcohol or drug abuse patient.[facility] HospitalIn the event this information is protected by the Federal Confidentiality of Alcohol and Drug Abuse Patient Records regulations: The Federal rules restrict any use of the information to criminally investigate or prosecute any alcohol or drug abuse patient.[facility] HospitalIn the event this information is protected by the Federal Confidentiality of Alcohol and Drug Abuse Patient Records regulations: The Federal rules restrict any use of the information to criminally investigate or prosecute any alcohol or drug abuse patient.[facility] HospitalIn the event this information is protected by the Federal Confidentiality of Alcohol and Drug Abuse Patient Records regulations: The Federal rules restrict any use of the information to criminally investigate or prosecute any alcohol or drug abuse patient.[facility] HospitalIn the event this information is protected by the Federal Confidentiality of Alcohol and Drug Abuse Patient Records regulations: The Federal rules restrict any use of the information to criminally investigate or prosecute any alcohol or drug abuse patient.[facility] HospitalIn the event this information is protected by the Federal Confidentiality of Alcohol and Drug Abuse Patient Records regulations: The Federal rules restrict any use of the information to criminally investigate or prosecute any alcohol or drug abuse patient.[facility] HospitalIn the event this information is protected by the Federal Confidentiality of Alcohol and Drug Abuse Patient Records regulations: The Federal rules restrict any use of the information to criminally investigate or prosecute any alcohol or drug abuse patient.[facility] HospitalIn the event this information is protected by the Federal Confidentiality of Alcohol and Drug Abuse Patient Records regulations: The Federal rules restrict any use of the information to criminally investigate or prosecute any alcohol or drug abuse patient.[facility] HospitalIn the event this information is protected by the Federal Confidentiality of Alcohol and Drug Abuse Patient Records regulations: The Federal rules restrict any use of the information to criminally investigate or prosecute any alcohol or drug abuse patient.[facility] HospitalIn the event this information is protected by the Federal Confidentiality of Alcohol and Drug Abuse Patient Records regulations: The Federal rules restrict any use of the information to criminally investigate or prosecute any alcohol or drug abuse patient.[facility] HospitalIn the event this information is protected by the Federal Confidentiality of Alcohol and Drug Abuse Patient Records regulations: The Federal rules restrict any use of the information to criminally investigate or prosecute any alcohol or drug abuse patient.[facility] HospitalIn the event this information is protected by the Federal Confidentiality of Alcohol and Drug Abuse Patient Records regulations: The Federal rules restrict any use of the information to criminally investigate or prosecute any alcohol or drug abuse patient.[facility] HospitalIn the event this information is protected by the Federal Confidentiality of Alcohol and Drug Abuse Patient Records regulations: The Federal rules restrict any use of the information to criminally investigate or prosecute any alcohol or drug abuse patient.[facility] HospitalIn the event this information is protected by the Federal Confidentiality of Alcohol and Drug Abuse Patient Records regulations: The Federal rules restrict any use of the information to criminally investigate or prosecute any alcohol or drug abuse patient.[facility] HospitalIn the event this information is protected by the Federal Confidentiality of Alcohol and Drug Abuse Patient Records regulations: The Federal rules restrict any use of the information to criminally investigate or prosecute any alcohol or drug abuse patient.[facility] HospitalIn the event this information is protected by the Federal Confidentiality of Alcohol and Drug Abuse Patient Records regulations: The Federal rules restrict any use of the information to criminally investigate or prosecute any alcohol or drug abuse patient.[facility] HospitalIn the event this information is protected by the Federal Confidentiality of Alcohol and Drug Abuse Patient Records regulations: The Federal rules restrict any use of the information to criminally investigate or prosecute any alcohol or drug abuse patient.[facility] HospitalIn the event this information is protected by the Federal Confidentiality of Alcohol and Drug Abuse Patient Records regulations: The Federal rules restrict any use of the information to criminally investigate or prosecute any alcohol or drug abuse patient.[facility] HospitalIn the event this information is protected by the Federal Confidentiality of Alcohol and Drug Abuse Patient Records regulations: The Federal rules restrict any use of the information to criminally investigate or prosecute any alcohol or drug abuse patient.[facility] HospitalIn the event this information is protected by the Federal Confidentiality of Alcohol and Drug Abuse Patient Records regulations: The Federal rules restrict any use of the information to criminally investigate or prosecute any alcohol or drug abuse patient.[facility] HospitalIn the event this information is protected by the Federal Confidentiality of Alcohol and Drug Abuse Patient Records regulations: The Federal rules restrict any use of the information to criminally investigate or prosecute any alcohol or drug abuse patient.[facility] HospitalIn the event this information is protected by the Federal Confidentiality of Alcohol and Drug Abuse Patient Records regulations: The Federal rules restrict any use of the information to criminally investigate or prosecute any alcohol or drug abuse patient.[facility] HospitalIn the event this information is protected by the Federal Confidentiality of Alcohol and Drug Abuse Patient Records regulations: The Federal rules restrict any use of the information to criminally investigate or prosecute any alcohol or drug abuse patient.[facility] HospitalIn the event this information is protected by the Federal Confidentiality of Alcohol and Drug Abuse Patient Records regulations: The Federal rules restrict any use of the information to criminally investigate or prosecute any alcohol or drug abuse patient.[facility] HospitalIn the event this information is protected by the Federal Confidentiality of Alcohol and Drug Abuse Patient Records regulations: The Federal rules restrict any use of the information to criminally investigate or prosecute any alcohol or drug abuse patient.[facility] HospitalIn the event this information is protected by the Federal Confidentiality of Alcohol and Drug Abuse Patient Records regulations: The Federal rules restrict any use of the information to criminally investigate or prosecute any alcohol or drug abuse patient.[facility] HospitalIn the event this information is protected by the Federal Confidentiality of Alcohol and Drug Abuse Patient Records regulations: The Federal rules restrict any use of the information to criminally investigate or prosecute any alcohol or drug abuse patient.[facility] HospitalIn the event this information is protected by the Federal Confidentiality of Alcohol and Drug Abuse Patient Records regulations: The Federal rules restrict any use of the information to criminally investigate or prosecute any alcohol or drug abuse patient.[facility] HospitalIn the event this information is protected by the Federal Confidentiality of Alcohol and Drug Abuse Patient Records regulations: The Federal rules restrict any use of the information to criminally investigate or prosecute any alcohol or drug abuse patient.[facility] HospitalIn the event this information is protected by the Federal Confidentiality of Alcohol and Drug Abuse Patient Records regulations: The Federal rules restrict any use of the information to criminally investigate or prosecute any alcohol or drug abuse patient.[facility] HospitalIn the event this information is protected by the Federal Confidentiality of Alcohol and Drug Abuse Patient Records regulations: The Federal rules restrict any use of the information to criminally investigate or prosecute any alcohol or drug abuse patient.[facility] HospitalIn the event this information is protected by the Federal Confidentiality of Alcohol and Drug Abuse Patient Records regulations: The Federal rules restrict any use of the information to criminally investigate or prosecute any alcohol or drug abuse patient.[facility] HospitalIn the event this information is protected by the Federal Confidentiality of Alcohol and Drug Abuse Patient Records regulations: The Federal rules restrict any use of the information to criminally investigate or prosecute any alcohol or drug abuse patient.[facility] HospitalIn the event this information is protected by the Federal Confidentiality of Alcohol and Drug Abuse Patient Records regulations: The Federal rules restrict any use of the information to criminally investigate or prosecute any alcohol or drug abuse patient.[facility] HospitalIn the event this information is protected by the Federal Confidentiality of Alcohol and Drug Abuse Patient Records regulations: The Federal rules restrict any use of the information to criminally investigate or prosecute any alcohol or drug abuse patient.[facility] HospitalIn the event this information is protected by the Federal Confidentiality of Alcohol and Drug Abuse Patient Records regulations: The Federal rules restrict any use of the information to criminally investigate or prosecute any alcohol or drug abuse patient.[facility] HospitalIn the event this information is protected by the Federal Confidentiality of Alcohol and Drug Abuse Patient Records regulations: The Federal rules restrict any use of the information to criminally investigate or prosecute any alcohol or drug abuse patient.[facility] HospitalIn the event this information is protected by the Federal Confidentiality of Alcohol and Drug Abuse Patient Records regulations: The Federal rules restrict any use of the information to criminally investigate or prosecute any alcohol or drug abuse patient.[facility] HospitalIn the event this information is protected by the Federal Confidentiality of Alcohol and Drug Abuse Patient Records regulations: The Federal rules restrict any use of the information to criminally investigate or prosecute any alcohol or drug abuse patient.[facility] HospitalIn the event this information is protected by the Federal Confidentiality of Alcohol and Drug Abuse Patient Records regulations: The Federal rules restrict any use of the information to criminally investigate or prosecute any alcohol or drug abuse patient.[facility] HospitalIn the event this information is protected by the Federal Confidentiality of Alcohol and Drug Abuse Patient Records regulations: The Federal rules restrict any use of the information to criminally investigate or prosecute any alcohol or drug abuse patient.[facility] HospitalIn the event this information is protected by the Federal Confidentiality of Alcohol and Drug Abuse Patient Records regulations: The Federal rules restrict any use of the information to criminally investigate or prosecute any alcohol or drug abuse patient.[facility] HospitalIn the event this information is protected by the Federal Confidentiality of Alcohol and Drug Abuse Patient Records regulations: The Federal rules restrict any use of the information to criminally investigate or prosecute any alcohol or drug abuse patient.[facility] HospitalIn the event this information is protected by the Federal Confidentiality of Alcohol and Drug Abuse Patient Records regulations: The Federal rules restrict any use of the information to criminally investigate or prosecute any alcohol or drug abuse patient.[facility] HospitalIn the event this information is protected by the Federal Confidentiality of Alcohol and Drug Abuse Patient Records regulations: The Federal rules restrict any use of the information to criminally investigate or prosecute any alcohol or drug abuse patient.[facility] HospitalIn the event this information is protected by the Federal Confidentiality of Alcohol and Drug Abuse Patient Records regulations: The Federal rules restrict any use of the information to criminally investigate or prosecute any alcohol or drug abuse patient.[facility] HospitalIn the event this information is protected by the Federal Confidentiality of Alcohol and Drug Abuse Patient Records regulations: The Federal rules restrict any use of the information to criminally investigate or prosecute any alcohol or drug abuse patient.[facility] HospitalIn the event this information is protected by the Federal Confidentiality of Alcohol and Drug Abuse Patient Records regulations: The Federal rules restrict any use of the information to criminally investigate or prosecute any alcohol or drug abuse patient.[facility] HospitalIn the event this information is protected by the Federal Confidentiality of Alcohol and Drug Abuse Patient Records regulations: The Federal rules restrict any use of the information to criminally investigate or prosecute any alcohol or drug abuse patient.[facility] HospitalIn the event this information is protected by the Federal Confidentiality of Alcohol and Drug Abuse Patient Records regulations: The Federal rules restrict any use of the information to criminally investigate or prosecute any alcohol or drug abuse patient.[facility] HospitalIn the event this information is protected by the Federal Confidentiality of Alcohol and Drug Abuse Patient Records regulations: The Federal rules restrict any use of the information to criminally investigate or prosecute any alcohol or drug abuse patient.[facility] HospitalIn the event this information is protected by the Federal Confidentiality of Alcohol and Drug Abuse Patient Records regulations: The Federal rules restrict any use of the information to criminally investigate or prosecute any alcohol or drug abuse patient.[facility] HospitalIn the event this information is protected by the Federal Confidentiality of Alcohol and Drug Abuse Patient Records regulations: The Federal rules restrict any use of the information to criminally investigate or prosecute any alcohol or drug abuse patient.[facility] HospitalIn the event this information is protected by the Federal Confidentiality of Alcohol and Drug Abuse Patient Records regulations: The Federal rules restrict any use of the information to criminally investigate or prosecute any alcohol or drug abuse patient.[facility] HospitalIn the event this information is protected by the Federal Confidentiality of Alcohol and Drug Abuse Patient Records regulations: The Federal rules restrict any use of the information to criminally investigate or prosecute any alcohol or drug abuse patient.[facility] HospitalIn the event this information is protected by the Federal Confidentiality of Alcohol and Drug Abuse Patient Records regulations: The Federal rules restrict any use of the information to criminally investigate or prosecute any alcohol or drug abuse patient.[facility] Reason for Visit (unrecogniz ed section and content) Reason Comments New was at admitted [facility] dx CHF and a-fib Specialty Diagnoses / Procedures Referred By Contac t Referred To Contact Gastroenterology Diagnoses Transaminitis Procedures CONSULT TO GASTROENTEROLOGY OFFICE/OUTPATIENT NEW HIGH MDM 60 MINUTES Anastasiia Colón APRN.CNS [address] [place] [address] [address] [place], [place] [id number] Referral ID Status Reason Start Date Expiration Date Visits Requested Visits Authorized [id number] Authorized PCP Requested Referral 10/12/2023 05/01/2024 99 [...] 40 MIN EST PATIENT Kierra Santiago MD [address] [place] [address] Mary Kay Delgado, DO [address] [place] [address] Referral ID Status Reason Start Date Expiration Date V isits Requested Visits Authorized [id number] Authorized 09/13/2023 05/01/2024 99 99 Reason Comments Follow Up Specialty Diagnoses / Procedures Referred By Contac t Referred To Contact Vascular Surgery / VASCULAR SURGERY Diagnoses Carotid stenosis, asymptomatic, bilateral 3 MONTH FOLLOW UP WIHT CAROTID TESTING Procedures OFFICE/OUTPATIENT ESTABLISHED HIGH MDM 40-54 MIN EST PATIENT Kailee Johnson MD [facility] [address] Kailee Johnson MD [address] [place] [address] Referral ID Status Reason Start Date Expiration Date V isits Requested Visits Authorized [id number] Authorized 03/01/2023 05/01/2023 99 99 Reason Comments [...] artery Procedures CONSULT TO VASCULAR SURGERY OFFICE/OUTPATIENT [facility] MDM 60-74 MINUTES Anastasiia Colón, LUDLOW MACHINE OPERATOR.CASING MATERIAL WEIGHER [address] [place] [address] Referral ID Status Reason Start Date Expiration Date V isits Requested Visits Authorized [id number] Closed PCP Requested Referral 08/10/2022 08/10/2023 1 1 Specialty Diagnoses / Procedures Referred By Contac t Referred To Contact Vascular Surgery / VASCULAR SURGERY Diagnoses carotid endart / dr delgado referral Procedures OFFICE/OUTPATIENT [facility] MDM 40-54 MIN EST PATIENT Mary Kay Delgado, DO [address] [address] Kailee Johnson MD [address] [place] [address] Referral ID Status Reason Start Date Expiration Date Visits Re quested Visits Authorized [id number] Closed 11/10/2022 05/01/2023 1 1 Reason Onset [...] W/O CNTRST Mary Kay Delgado, DO [address] [place] [address] [place] [address] Referral ID Status Reason Start Date Expiration Date V isits Requested Visits Authorized [id number] Closed Auto-Generate d Referral 11/08/2022 12/08/2023 [address] Specialty Diagnoses / Procedures Referred By Contac t Referred To Contact CT IMAGING Diagnoses Occlusion and stenosis of unspecified carotid artery Procedures CTA NECK W IVCON CT ANGIOGRAPHY NECK W/CONTRAST/NONCONTRAST Mary Kay Delgado, DO [address] [place] [address] [facility] [place] [address] Referral ID Status Reason Start Date Expiration Date V isits Requested Visits Authorized [id number] Closed Auto-Generate d Referral 09/21/2022 10/21/2023 1 [...] DSME/MNT MEDICAL NUTRITION ASSMT&IVNTJ INDIV EACH 15 [place] MEDICAL NUTRITION ASSMT&IVNTJ INDIV EACH 15 [place] MEDICAL NUTRITION ASSMT&IVNTJ INDIV EACH 15 [place] MEDICAL NUTRITION ASSMT&IVNTJ INDIV EACH 15 [place] Anastasiia Colón, LUDLOW MACHINE OPERATOR.CASING MATERIAL WEIGHER [address] [place] [address] [address] [place] [address] Referral ID Status Reason Start Date Expiration Date V isits Requested Visits Authorized [id number] Closed PCP Requested Referral 10/12/2023 05/01/2024 1 1 Reason Comments Patient Update Reason Comments Radiology CT Specialty Diagnoses / Procedures Referred By Contac t Referred To Contact CT IMAGING Diagnoses Lung nodules Procedures CT CHEST WO IVCON DIAGNOSTIC COMPUTED TOMOGRAPHY THORAX W/O CNTRST Anastasiia Colón, LUDLOW MACHINE OPERATOR.CASING MATERIAL WEIGHER [address] [place] [address] [place] [address] Referral ID Status Reason Start Date Expiration Date V isits Requested Visits Authorized [id number] Closed Auto-Generate d Referral 05/02/2023 05/01/2024 1 [...] ABDOMINAL REAL TIME W/IMAGE LIMITED Joelle Barreto, LUDLOW MACHINE OPERATOR.PET AMBASSADOR [address] [place] [address] [facility] [place] [address] Referral ID Status Reason Start Date Expiration Date V isits Requested Visits Authorized [id number] Closed Auto-Generate d Referral 11/18/2023 12/17/2024 1 1 Reason Comments Sinus Problem bodyaches, nausea, d iarrhea x 1 day Reason Comments Labs needed? Reason Onset Date Comments Refill Request 12/30/2023 Reason Onset Date Comments Transition Of Care 01/14/2024 Reason Comments Home Health Orders Reason Comments [facility] PT POC Reason Comments Home Health Point of Care Results Reason Comments Hospital F/U Reason Comments F/U 3 Month Labs prior Reason Comments Hospital F/U Reason Comments Home Care Management Reason Comments Question Reason Comments Orders Reason Comments Physical Therapy Plan of Care Reason Comments [facility] HH - INR message Reason Comments Forms HH certificate plan of care 04/09/24 Reason Comments Established Patient Specialty Diagnoses / Procedures Referred By Conttyler t Referred To Contact Peripheral Vascular / VASCULAR SURGERY Diagnoses Encounter for follow-up examination after completed treatment for conditions other than malignant neoplasm follow up after testing Procedures OFFICE/OUTPATIENT ESTABLISHED HIGH MDM 40 MIN EST PATIENT Mary Kay Delgado, DO [address] [place] [address] Mary Kay Delgado, DO [address] [place] [address] Referral ID Status Reason Start Date Expiration Date V isits Requested Visits Authorized [id number] Authorized 05/04/2024 05/01/2025 99 99 Reason Comments [...] Care Teams (unrecognized sec tion and content) Naval Architect Relationship Specialty Start Date End Date Talampas, Kierra D, MD [address] [facility] [place] [address] PCP - General Internal Medicine 07/01/22 Naval Architect Relationship Specialty Start Date End Date Kierra Santiago MD [address] [place] [address], [place] [address] PCP - General Internal Medicine 07/01/22 Naval Architect Relationship Specialty Start Date End Date Kierra Santiago MD [address] [place] [address], [place] [address] PCP - General Internal Medicine 07/01/22 Naval Architect Relationship Specialty Start Date End Date Kierra Santiago MD [address] [place] [address], [place] [address] PCP - General Internal Medicine 07/01/22 Naval Architect Relationship Specialty Start Date End Date Kierra Santiago MD [address] [place] [address], [place] [address] PCP - General Internal Medicine 07/01/22 Naval Architect Relationship Specialty Start Date End Date Kierra Santiago MD [address] [place] [address], [place] [address] PCP - General Internal Medicine 07/01/22 Naval Architect Relationship Specialty Start Date End Date Keirra Santiago MD [address] [place] [address], [place] [address] PCP - General Internal Medicine 07/01/22 Naval Architect Relationship Specialty Start Date End Date Kierra Santiago MD [address] [place] [address], [place] [address] PCP - General Internal Medicine 07/01/22 Naval Architect Relationship Specialty Start Date End Date Kierra Santiago MD [address] [place] [address], [place] [address] PCP - General Internal Medicine 07/01/22 Naval Architect Relationship Specialty Start Date End Date Kierra Santiago MD [address] [facility] [place] [address] PCP - General Internal Medicine 07/01/22 Naval Architect Relationship Specialty Start Date End Date Kierra Santiago MD [address] [facility] [place] [address] PCP - General Internal Medicine 07/01/22 Naval Architect Relationship Specialty Start Date End Date Kierra Santiago MD [address] [facility] [place] [address] PCP - General Internal Medicine 07/01/22 Naval Architect Relationship Specialty Start Date End Date Kierra Santiago MD [address] [facility] [place] [address] PCP - General Internal Medicine 07/01/22 Naval Architect Relationship Specialty Start Date End Date Kierra Santiago MD [address] [facility] [place] [address] PCP - General Internal Medicine 07/01/22 Naval Architect Relationship Specialty Start Date End Date Kierra Santiago MD [address] [facility] [place] [address] PCP - General Internal Medicine 07/01/22 Naval Architect Relationship Specialty Start Date End Date Kierra Santiago MD [address] [facility] [place] [address] PCP - General Internal Medicine 07/01/22 Naval Architect Relationship Specialty Start Date End Date Kierra Santiago MD [address] [facility] [place] [address] PCP - General Internal Medicine 07/01/22 Naval Architect Relationship Specialty Start Date End Date Kierra Santiago MD [address] [facility] [place] [address] PCP - General Internal Medicine 07/01/22 Naval Architect Relationship Specialty Start Date End Date Kierra Santiago MD [address] [place] [address] PCP - General Internal Medicine 07/01/22 Naval Architect Relationship Specialty Start Date End Date Kierra Santiago MD [address] [place] [address] PCP - General Internal Medicine 07/01/22 Naval Architect Relationship Specialty Start Date End Date Kierra Santiago MD [address] [place] [address] PCP - General Internal Medicine 07/01/22 Naval Architect Relationship Specialty Start Date End Date Kierra Santiago MD [address] [place] [address] PCP - General Internal Medicine 07/01/22 Naval Architect Relationship Specialty Start Date End Date Kierra Santiago MD [address] [place] [address] PCP - General Internal Medicine 07/01/22 Naval Architect Relationship Specialty Start Date End Date Kierra Santiago MD [address] [place] [address] PCP - General Internal Medicine 07/01/22 Naval Architect Relationship Specialty Start Date End Date Kierra Santiago MD [address] [facility] [place] [address] PCP - General Internal Medicine 07/01/22 Naval Architect Relationship Specialty Start Date End Date Kierra Santiago MD [address] [place] [address] PCP - General Internal Medicine 07/01/22 Naval Architect Relationship Specialty Start Date End Date Kierra Santiago MD [address] [place] [address] PCP - General Internal Medicine 07/01/22 Naval Architect Relationship Specialty Start Date End Date Kierra Santiago MD [address] [place] [address] PCP - General Internal Medicine 07/01/22 Naval Architect Relationship Specialty Start Date End Date Kierra Santiago MD [address] [place] [address] PCP - General Internal Medicine 07/01/22 Naval Architect Relationship Specialty Start Date End Date Kierra Santiago MD [address] [facility] [place] [address] PCP - General Internal Medicine 07/01/22 Naval Architect Relationship Specialty Start Date End Date Kierra Santiago MD [address] [facility] [place] [address] PCP - General Internal Medicine 07/01/22 Naval Architect Relationship Specialty Start Date End Date Kierra Santiago MD [address] [facility] [place] [address] PCP - General Internal Medicine 07/01/22 Naval Architect Relationship Specialty Start Date End Date Kierra Santiago MD [address] [facility] [place] [address] PCP - General Internal Medicine 07/01/22 Naval Architect Relationship Specialty Start Date End Date Kierra Santiago MD [address] [facility] [place] [address] PCP - General Internal Medicine 07/01/22 Naval Architect Relationship Specialty Start Date End Date Kierra Santiago MD [address] [facility] [place] [address] PCP - General Internal Medicine 07/01/22 Naval Architect Relationship Specialty Start Date End Date Kierra Santiago MD [address] [facility] [place] [address] PCP - General Internal Medicine 07/01/22 Naval Architect Relationship Specialty Start Date End Date Kierra Santiago MD [address] [facility] [place] [address] PCP - General Internal Medicine 07/01/22 Naval Architect Relationship Specialty Start Date End Date Kierra Santiago MD [address] [facility] [place] [address] PCP - General Internal Medicine 07/01/22 Naval Architect Relationship Specialty Start Date End Date Kierra Santiago MD [address] [facility] [place] [address] PCP - General Internal Medicine 07/01/22 Naval Architect Relationship Specialty Start Date End Date Kierra Santiago MD [address] [facility] [place] [address] PCP - General Internal Medicine 07/01/22 Naval Architect Relationship Specialty Start Date End Date Kierra Santiago MD [address] [facility] [place] [address] PCP - General Internal Medicine 07/01/22 Nancy Albert, XOCHILT [address] [place] [address] Primary Care Metallographer 01/06/24 Naval Architect Relationship Specialty Start Date End Date Kierra Santiago MD [address] [place] [address] PCP - General Internal Medicine 07/01/22 Nancy Albert, XOCHILT [address] [place] [address] Primary Care Metallographer 01/06/24 Naval Architect Relationship Specialty Start Date End Date Kierra Santiago MD [address] [place] [address] PCP - General Internal Medicine 07/01/22 Naval Architect Relationship Specialty Start Date End Date Kierra Santiago MD [address] [facility] [place] [address] PCP - General Internal Medicine 07/01/22 Nancy Albert, XOCHILT [address] [place] [address] Primary Care Metallographer 01/06/24 01/23/24 Naval Architect Relationship Specialty Start Date End Date Kierra Santiago MD [address] [place] [address] PCP - General Internal Medicine 07/01/22 Naval Architect Relationship Specialty Start Date End Date Kierra Santiago MD [address] [place] [address] PCP - General Internal Medicine 07/01/22 Naval Architect Relationship Specialty Start Date End Date Kierra Santiago MD [address] [place] [address] PCP - General Internal Medicine 07/01/22 Anastasiia Colón, LUDLOW MACHINE OPERATOR.CASING MATERIAL WEIGHER [address] [place] [address] Tool Adjuster Internal Medicine 04/09/24 Sheryl Reyes LUDLOW MACHINE OPERATOR.PET AMBASSADOR [address] [place] [address] Tool Adjuster Internal Medicine 04/09/24 Naval Architect Relationship Specialty Start Date End Date Kierra Santiago MD [address] [place] [address] PCP - General Internal Medicine 07/01/22 Anastasiia Colón, LUDLOW MACHINE OPERATOR.CASING MATERIAL WEIGHER [address] [place] [address] Tool Adjuster Internal Medicine 04/09/24 Sheryl Reyes LUDLOW MACHINE OPERATOR.PET AMBASSADOR [address] [place] [address] Tool Adjuster Internal Medicine 04/09/24 Naval Architect Relationship Specialty Start Date End Date Kierra Santiago MD [address] [place] [address] PCP - General Internal Medicine 07/01/22 Anastasiia Colón, LUDLOW MACHINE OPERATOR.CASING MATERIAL WEIGHER [address] [place] [address] Tool Adjuster Internal Medicine 04/09/24 Sheryl Reyes LUDLOW MACHINE OPERATOR.PET AMBASSADOR [address] [place] [address] Tool Adjuster Internal Medicine 04/09/24 Naval Architect Relationship Specialty Start Date End Date Kierra Santiago MD [address] [place] [address] PCP - General Internal Medicine 07/01/22 Anastasiia Colón, LUDLOW MACHINE OPERATOR.CASING MATERIAL WEIGHER [address] [place] [address] Tool Adjuster Internal Medicine 04/09/24 Sheryl Reyes LUDLOW MACHINE OPERATOR.PET AMBASSADOR [address] [place] [address] [facility] Internal Medicine 04/09/24 Naval Architect Relationship Specialty Start Date End Date Kierra Santiago MD [address] [place] [address] PCP - General Internal Medicine 07/01/22 Anastasiia Colón, LUDLOW MACHINE OPERATOR.CASING MATERIAL WEIGHER [address] [place] [address] [facility] Internal Medicine 04/09/24 Sheryl Reyes LUDLOW MACHINE OPERATOR.PET AMBASSADOR [address] [place] [address] [facility] Internal Medicine 04/09/24 Naval Architect Relationship Specialty Start Date End Date Kierra Santiago MD [address] [facility] [place] [address] PCP - General Internal Medicine 07/01/22 Anastasiia Colón, LUDLOW MACHINE OPERATOR.CASING MATERIAL WEIGHER [address] [facility] [place] [address] Tool Adjuster Internal Medicine 04/09/24 Shreyl Reyes LUDLOW MACHINE OPERATOR.PET AMBASSADOR [address] [place] [address] Tool Adjuster Internal Medicine 04/09/24 Naval Architect Relationship Specialty Start Date End Date Kierra Santiago MD [address] [place] [address] PCP - General Internal Medicine 07/01/22 Anastasiia Colón, LUDLOW MACHINE OPERATOR.CASING MATERIAL WEIGHER [address] [facility] [place] [address] Tool Adjuster Internal Medicine 04/09/24 Sheryl Reyes LUDLOW MACHINE OPERATOR.PET AMBASSADOR [address] [place] [address] Tool Adjuster Internal Medicine 04/09/24 Naval Architect Relationship Specialty Start Date End Date Kierra Santiago MD [address] [place] [address] PCP - General Internal Medicine 07/01/22 Anastasiia Colón, LUDLOW MACHINE OPERATOR.CASING MATERIAL WEIGHER [address] [facility] [place] [address] Tool Adjuster Internal Medicine 04/09/24 Sheryl Reyes LUDLOW MACHINE OPERATOR.PET AMBASSADOR [address] [place] [address] Tool Adjuster Internal Medicine 04/09/24 Naval Architect Relationship Specialty Start Date End Date Kierra Santiago MD [address] [place] [address] PCP - General Internal Medicine 07/01/22 Anastasiia Colón, LUDLOW MACHINE OPERATOR.CASING MATERIAL WEIGHER [address] [place] [address] Tool Adjuster Internal Medicine 04/09/24 Sheryl Reyes LUDLOW MACHINE OPERATOR.PET AMBASSADOR [address] [place] [address] Tool Adjuster Internal Medicine 04/09/24 Naval Architect Relationship Specialty Start Date End Date Kierra Santiago MD [address] [place] [address] PCP - General Internal Medicine 07/01/22 Anastasiia Colón, LUDLOW MACHINE OPERATOR.CASING MATERIAL WEIGHER [address] [place] [address] Tool Adjuster Internal Medicine 04/09/24 Sheryl Reyes LUDLOW MACHINE OPERATOR.PET AMBASSADOR [address] [place] [address] Tool Adjuster Internal Medicine 04/09/24 Naval Architect Relationship Specialty Start Date End Date Kierra Santiago MD [address] [place] [address] PCP - General Internal Medicine 07/01/22 Anastasiia Colón, LUDLOW MACHINE OPERATOR.CASING MATERIAL WEIGHER [address] [place] [address] Tool Adjuster Internal Medicine 04/09/24 Sheryl Reyes APRN.PET AMBASSADOR [address] [place] [address] [facility] Internal Medicine 04/09/24 Naval Architect Relationship Specialty Start Date End Date Kierra Santiago MD [address] [place] [id number] PCP - General Internal Medicine 07/01/22 Anastasiia Colón LUDLOW MACHINE OPERATOR.CASING MATERIAL WEIGHER [address] [place] [address] [facility] Internal Medicine 04/09/24 Sheryl Reyes LUDLOW MACHINE OPERATOR.PET AMBASSADOR [address] [place] [address] [facility] Internal Medicine 04/09/24 Naval Architect Relationship Specialty Start Date End Date Kierra Santiago MD [address] [place] [address] PCP - General Internal Medicine 07/01/22 Anastasiia Colón, LUDLOW MACHINE OPERATOR.CASING MATERIAL WEIGHER [address] [place] [address] [facility] Internal Medicine 04/09/24 Sheryl Reyes LUDLOW MACHINE OPERATOR.PET AMBASSADOR [address] [place] [address] [facility] Internal Medicine 04/09/24 Naval Architect Relationship Specialty Start Date End Date Kierra Santiago MD [address] [place] [address] PCP - General Internal Medicine 07/01/22 Anastasiia Colón, LUDLOW MACHINE OPERATOR.CASING MATERIAL WEIGHER [address] [place] [address] Tool Adjuster Internal Medicine 04/09/24 Sheryl Reyes LUDLOW MACHINE OPERATOR.PET AMBASSADOR [address] [place] [address] Tool Adjuster Internal Medicine 04/09/24 Naval Architect Relationship Specialty Start Date End Date Kierra Santiago MD [address] [facility] [place] [address] PCP - General Internal Medicine 07/01/22 Anastasiia Colón, LUDLOW MACHINE OPERATOR.CASING MATERIAL WEIGHER [address] [facility] [place] [address] Tool Adjuster Internal Medicine 04/09/24 Sheryl Reyes LUDLOW MACHINE OPERATOR.PET AMBASSADOR [address] [facility] [place] [address] [facility] Internal Medicine 04/09/24 Naval Architect Relationship Specialty Start Date End Date Kierra Santiago MD [address] [place] [address] PCP - General Internal Medicine 07/01/22 Anastasiia Colón, LUDLOW MACHINE OPERATOR.CASING MATERIAL WEIGHER [address] [facility] [place] [address] Tool Adjuster Internal Medicine 04/09/24 Sheryl Reyes LUDLOW MACHINE OPERATOR.PET AMBASSADOR [address] [place] [address] [facility] Internal Medicine 04/09/24 Naval Architect Relationship Specialty Start Date End Date Kierra Santiago MD [address] [place] [address] PCP - General Internal Medicine 07/01/22 Anastasiia Colón, LUDLOW MACHINE OPERATOR.CASING MATERIAL WEIGHER [address] [place] [address] Tool Adjuster Internal Medicine 04/09/24 Sheryl Reyes LUDLOW MACHINE OPERATOR.PET AMBASSADOR [address] [facility] [place] [address] [facility] Internal Medicine 04/09/24 Naval Architect Relationship Specialty Start Date End Date Kierra Santiago MD [address] [facility] [place] [address] PCP - General Internal Medicine 07/01/22 Anastasiia Colón, LUDLOW MACHINE OPERATOR.CASING MATERIAL WEIGHER [address] [facility] [place] [address] Tool Adjuster Internal Medicine 04/09/24 Sheryl Reyes LUDLOW MACHINE OPERATOR.PET AMBASSADOR [address] [facility] [address] [facility] Internal Medicine 04/09/24 Team Status: Active Member Role Status Dates Dr. Kierra Santiago MD Primary Care Provider Active Team Status: Inactive Member Role Status Dates Dr. Kierra Santiago MD Primary Care Provider Active Start: March 19, 2024 End: April 08, 2024 Dr. Jason Smith MD Admit Provider [...] Active Start: March 23, 2024 Dr. Jason Smtih MD Other Provider Active Star t: March [...] 2024 End: June 20, 2024 Dominick Harrell AX SURVEY WORKER, AX SURVEY WORKER-C Attending Provider Active S tart: June 20, 2024 End: June 20, 2024 Team Status: Inactive Member Role Status Dates Dr. Kierra Santiago MD Primary Care Provider Active Start: July 10, 2024 End: July 10, 2024 Dominick Harrell AX SURVEY WORKER, AX SURVEY WORKER-C Attending Provider Active S tart: July 10, 2024 End: July 10, 2024 Dominick Harrell AX SURVEY WORKER, AX SURVEY WORKER-C Referring Provider Active S tart: July 10, 2024 End: July 10, 2024 Team Status: Inactive Member Role Status Dates Dr. Kierra Santiago MD Primary Care Provider Active Start: July 25, 2024 End: July 25, 2024 Dominick Harrell AX SURVEY WORKER, AX SURVEY WORKER-C Attending Provider Active S tart: July 25, 2024 End: July 25, 2024 Dominick Harrell AX SURVEY WORKER, AX SURVEY WORKER-C Referring Provider Active S tart: July 25, 2024 End: July 25, 2024 Naval Architect Relationship Specialty Start Date End Date Kierra Santiago MD [address] [place], [place] [id number] PCP - General Internal Medicine 07/01/22 Anastasiia Colón, LUDLOW MACHINE OPERATOR.CASING MATERIAL WEIGHER [address] [place] [address] Tool Adjuster Internal Medicine 04/09/24 Sheryl Reyes, LUDLOW MACHINE OPERATOR.PET AMBASSADOR [address] [place] [address] Tool Adjuster Internal Medicine 07/24/24 Naval Architect Relationship Specialty Start Date End Date Kierra Santiago MD [address] [place] [address] PCP - General Internal Medicine 07/01/22 Anastasiia Colón, LUDLOW MACHINE OPERATOR.CASING MATERIAL WEIGHER [address] [place] [address] [facility] Internal Medicine 04/09/24 Sheryl Reyes APRN.PET AMBASSADOR [address] [place] [address] [facility] Internal Medicine 07/24/24 Naval Architect Relationship Specialty Start Date End Date Kierra Santiago MD [address] [place] [address] PCP - General Internal Medicine 07/01/22 Anastasiia Colón APRN.CASING MATERIAL WEIGHER [address] [place] [address] [facility] Internal Medicine 04/09/24 Sheryl Reyes LUDLOW MACHINE OPERATOR.PET AMBASSADOR [address] [place] [address] [facility] Internal Medicine 07/24/24 Team Status: Inactive Member Role Status Dates Dr. Kierra Santiago MD Primary Care Provider Active Start: August 15, 2024 End: August 15, 2024 Domniick Harrell AX SURVEY WORKER, AX SURVEY WORKER-C Attending Provider Active S tart: August 15, 2024 End: August 15, 2024 Dominick Harrell AX SURVEY WORKER, AX SURVEY WORKER-C Referring Provider Active S tart: August 15, [...] 2024 End: August 28, 2024 Dominick Harrell AX SURVEY WORKER, AX SURVEY WORKER-C Other Provider Active Start : August 28, [...] Referring Provider Active Start: October 02, 2024 Team Status: Active Member Role Status Dates Dr. Kierra Santiago MD Primary Care Provider Active Start: October 07, 2024 Dr. Matheus Fabian MD Emergency Provider Active Start: October 07, 2024 Dr. Roly Herrera MD Other Provider Active St art: October 07, 2024 Dr. Kelsie Muñoz MD Admit Provider Active St art: October 07, 2024 Dr. Kelsie Muñoz MD Attending Provider Active Start: October 07, 2024 Dr. Kelsie Muñoz MD Other Provider Active St art: October 07, 2024 Goals (unrecognized section and content) Goals may be documented in a n alternate section INFORMATION SOURCE (unrecogn ized section and content) DATE CREATED AUTHOR 09/12/2024 [facility] DATE CREATED AUTHOR AUTHOR'S ORGANIZ ATION 10/08/2024 [facility] FOR RECORDS PERTAINING TO PATIENTS WHO ARE [...] BE BASED ON THE PRIMARY CLINICAL RECORDS. [employer] provides no warranty or guarantee of the accuracy or completeness of information in this document.
--- NOTE | 2024-10-08 05:55 | EKG12_ITS ---
Test Reason : PRE OP Blood Pressure : */* mmHG Vent. Rate : 59 BPM Atrial Rate : * BPM P-R Int : * ms QRS Dur : 90 ms QT Int : 478 ms P-R-T Axes : * -39 91 degrees QTcB Int : 473 ms sinus bradycardia with PACs Left axis deviation ST & T wave abnormality, consider lateral ischemia Abnormal ECG When compared with ECG of 07-Oct-2024 21:29, MANUAL COMPARISON REQUIRED DATA IS UNCONFIRMED Confirmed by Roly Herrera ([id number]), editor greeting card CHINA ADAMES ([id number]) on 10/08/2024 9:09:30 AM Referred By: RHETT Confirmed By: Roly Herrera
[2024-10-08 06:21] LABS: Bedside Glucose 96 mg/dL (74-106)
[2024-10-08 06:32] LABS: International Normalized Ratio 1.9; Prothrombin Time (Protime)PT. 22.3 SECONDS (11.7-14.9)
--- NOTE | 2024-10-08 07:40 | EKG12_ITS ---
Test Reason : AM EKG Blood Pressure : */* mmHG Vent. Rate : 56 BPM Atrial Rate : * BPM P-R Int : * ms QRS Dur : 86 ms QT Int : 460 ms P-R-T Axes : * -53 20 degrees QTcB Int : 443 ms sinus bradycardia, PVC Left axis deviation Septal infarct , age undetermined Abnormal ECG When compared with ECG of 08-Oct-2024 07:58, MANUAL COMPARISON REQUIRED DATA IS UNCONFIRMED Confirmed by Roly Herrera ([id number]), medical editor CH[place] ADAMES ([id number]) on 10/09/2024 11:08:14 AM Referred By: RHETT Confirmed By: Roly Herrera
--- NOTE | 2024-10-08 08:36 | PCM.CONS.C ---
Assessment & Plan Assessment/Plan (1) ABLA (acute blood loss anemia): PLAN: Patient hemoglobin had dropped to 6.5 she received 2 units of packed red blood cells repeat hemoglobin is pending. Dr. Giron has been consulted. (2) Chest pain: QUALIFIERS: Chest pain type: unspecified Qualified Code(s): R07.9 - Chest pain, unspecified PLAN: Patient's chest discomfort has resolved. I do not feel this represents an ischemic event. Although it is likely given her heart failure with preserved ejection fraction, her mild to moderate aortic stenosis, and likely coronary artery disease that she would have a bump in her enzymes with a hemoglobin dropping to 6.5 associated with her shortness of breath PND and orthopnea. (3) HFrEF (heart failure with reduced ejection fraction): PLAN: Patient's last echocardiogram May 2024 showed an EF of 63% with a mildly dilated left ventricle. There was moderate valvular heart disease documented as well. (4) Aortic valve stenosis: QUALIFIERS: Cardiac valve disease etiology: nonrheumatic Qualified Code(s): I35.0 - Nonrheumatic aortic (valve) stenosis PLAN: Patient's echocardiogram May 08, 2024 showed a peak gradient of 14 the mean gradient of 8 consistent with mild aortic stenosis. (5) Atrial fibrillation: QUALIFIERS: Atrial fibrillation type: paroxysmal Qualified Code(s): I48.0 - Paroxysmal atrial fibrillation PLAN: Patient's rhythm is extremely difficult to see but there are tiny P waves on her ECG that are not visible on telemetry. Her heart rate is around 60 bpm with sinus rhythm and frequent PACs. Repeat ECG today confirmed this rhythm. (6) Factor V Leiden: PLAN: Patient is on long-term Coumadin and Plavix. The Coumadin is for her factor V Leiden deficiency Plavix is for her peripheral vascular disease and her P PE bypass graft in her right lower extremity by Dr. Rojas. (7) Hypertension: QUALIFIERS: Hypertension type: primary hypertension Qualified Code(s): I10 - Essential (primary) hypertension PLAN: Blood pressure is well-controlled on her current medical therapy. PLAN: Plan 1. Continue current cardiovascular medical therapy. 2. Will hold Coumadin pending further GI evaluation and treatment. 3. Will need to hold Plavix in the interim. However this needs to be reinstituted given her PVD graft in her right lower extremity. Coumadin will also need to be reinstituted for her factor V Leiden deficiency when cleared by GI. 4. Will continue to follow-up with you as directed. HPI Consult Data Date of Consult: 10/08/24 HPI Narrative Reason for Consultation: GI bleed with history of atrial fibrillation. HPI Narrative: JAROD PRITCHARD, is a 83 F who presents with a 2-week history of a change in her bowel movements incessantly diagnosed with GI bleed and hemoglobin of 6.5. Patient noted about 2 weeks ago that her bowel movements changed in color and consistency. She has a history of a gastric ulcer back in MarchApril [address] Giron. She was reevaluated with upper endoscopy July 2024 and had a healed areas in her gastric mucosa. There was no active bleeding there were some erythematous changes. Patient reports from an A-fib standpoint she has been doing very well in her home environment her blood pressures come under much better control recently. She was last evaluated in the [facility] office in June 2024 where she was in a regular rhythm. In May 2024 she had been in atrial fibrillation with a controlled ventricular response. ECG on admission shows normal sinus rhythm with PACs and left axis deviation. Repeat ECG showed sinus bradycardia at 59 bpm with left axis deviation and frequent PACs. There were nonspecific ST-T wave changes on both ECGs that have not evolved. Patient's initial troponins were 46, 42, and 50. Patient was complaining of some chest fullness and tightness when she first presented to the emergency department. ECG did not show any acute ischemic changes. She denies any significant chest discomfort at this time. The patient did report that she had developed increasing right lower extremity edema that improved with increasing her Lasix in her home environment. She had also started using her oxygen 24/7 on 10/06/2024. And she had developed a recumbent cough, orthopnea and PND. Patient does have a history of heart failure with preserved ejection fraction remotely. The last echocardiogram done May 08, 2024 showed a mildly dilated left ventricle with an EF of 63%. The right ventricle was normal, the left atrial cavity was mildly dilated and the visualized aorta had a maximal diameter 4.1 cm. There was mild aortic valve stenosis with a calcified leaflet. 1+ AI was noted the peak gradient was 14 the mean gradient was 8. 1-2+ mitral regurgitation was documented. The patient is also monitored by Dr. Rojas for her peripheral vascular disease. She is status post right bypass surgery with artificial conduit. The patient has been on long-term Coumadin and her INR was 2.7 on admission. This is monitored through the [facility] Coumadin clinic. Currently the patient is resting comfortably in the seated position in her bed. PENDING SALE TO [facility] Medical History (Updated 10/08/24 @ 08:[address] Roly Herrera MD) TIA (transient ischemic attack) Wears glasses Depression Heartburn Non-smoker On home oxygen therapy Hypertension Gastric ulcer Dilated cardiomyopathy Prolonged QT interval Elevated blood pressure reading without diagnosis of hypertension Factor V Leiden Anxiety Hypokalemia Acute hypoxemic respiratory failure CHF (congestive heart failure) Home Medications ?Medication ?Instructions ?Recorded ?Last Taken ?Type oxybutynin chloride 10 mg 10 mg PO DAILY bladder 09/23/23 08/22/24 History tablet,extended release 24 hr glimepiride 2 mg tablet 2 mg PO DAILY dm 12/31/23 Unknown History ferrous sulfate 325 mg (65 mg 325 mg PO DAILY@1200 supplement 30 02/03/24 Unknown Rx iron) tablet (FeroSul) days #30 tabs warfarin 2 mg tablet 2 mg PO MOWEFR afib 03/07/24 Unknown History furosemide 40 mg tablet 40 mg PO DAILY water pill 30 days 03/19/24 01/27/24 Rx #60 tabs clopidogrel 75 mg tablet 75 mg PO DAILY 30 days #30 tabs 04/05/24 Unknown Rx pantoprazole 40 mg tablet,delayed 40 mg PO BID 30 days #60 tabs 04/05/24 Unknown Rx release simvastatin 80 mg tablet 80 mg PO QHS 06/20/24 Unknown History metoprolol succinate 50 mg 50 mg PO BID #1 TAB 07/20/24 08/22/24 Rx tablet,extended release 24 hr magnesium chloride 64 mg 128 mg PO DAILY 08/17/24 Unknown History (magnesium chloride) tablet,delayed release (Mag 64) warfarin 3 mg tablet 3 mg PO SUTUTHSA 08/17/24 Unknown History losartan 100 mg tablet 100 mg PO QDAY #90 tabs 08/20/24 Unknown Rx potassium chloride 20 mEq 20 meq PO BID 08/20/24 Unknown History tablet,extended release amlodipine 10 mg tablet 10 mg PO .COMPLEX #90 tabs 09/04/24 Unknown Rx acetaminophen 500 mg capsule 500 mg PO QHS PRN pain 10/07/24 Unknown History fluticasone propionate 50 2 spray intranasal Q12H PRN 10/07/24 Unknown History mcg/actuation nasal congestion spray,suspension gabapentin 100 mg capsule 100 mg PO TID 10/07/24 Unknown History tizanidine 2 mg tablet 2 mg PO Q8 PRN Muscle Spasm 10/07/24 Unknown History Allergy/AdvReac Type Severity Reaction Status Date / Time benazepril (From Lotensin) Allergy Mild DOESNT Verified 10/07/24 21:21 REMEMBER quinapril (From Accupril) Allergy Mild UNKNOWN Verified 10/07/24 21:21 Sulfa (Sulfonamide Allergy Mild Hives Verified 10/07/24 21:21 Antibiotics) verapamil (From Calan) Allergy Mild UNKNOWN Verified 10/07/24 21:21 Family History Mother Diabetes Father Diabetes CVA (cerebral vascular accident) Heart disease Hypertension Myocardial infarction CAD (coronary artery disease) Brother Myocardial infarction Hypertension Heart disease CAD (coronary artery disease) Sister NAFLD (nonalcoholic fatty liver disease) Other Asthma COPD (chronic obstructive pulmonary disease) Surgical History Hx of amputation History of transmetatarsal amputation of right foot History of femoropopliteal bypass S/P carotid endarterectomy Social History household members: spouse Smoking Status: Never smoker alcohol intake: never substance use type: does not use ROS Constitutional Constitutional: Reports as per HPI Eyes Eyes: Reports systems reviewed and no addt'l complaints, except as documented ENT HEENT: Reports systems reviewed and no addt'l complaints, except as documented Cardiovascular Cardiovascular: Reports as per HPI Respiratory/Chest Respiratory/Chest: Reports as per HPI Gastrointestinal Gastrointestinal: Reports as per HPI Genitourinary Genitourinary: Reports systems reviewed and no addt'l complaints, except as documented Musculoskeletal Musculoskeletal: Reports as per HPI Integumentary Integumentary: Reports systems reviewed and no addt'l complaints, except as documented Neurologic Neurologic: Reports systems reviewed and no addt'l complaints, except as documented Psychiatric Psychiatric: Reports systems reviewed and no addt'l complaints, except as documented Endocrine Endocrinology: Reports systems reviewed and no addt'l complaints, except as documented Hematologic/Lymphatic Hematologic/Lymphatic: Reports as per HPI Allergic/Immunologic Allergic/Immunologic: Reports systems reviewed and no addt'l complaints, except as documented Physical Exam Const alert and oriented x3 HEENT normocephalic Eyes EOMs intact bilaterally Neck no JVD Carotids: bruit Positive for left Chest inspection of chest normal Resp normal respiratory effort Auscultation: crackles bilateral lower and diminished lung sounds right lower Cardio Rate: regular rate Rhythm: abnormal rhythm ectopic beats Heart Sounds: S1 normal, S2 normal and murmur systolic II/ harsh holo left sternal border, right sternal border and sternal notch; Negative for click or gallop GI soft to palpation GI Narrative: Active bowel sounds Extremity no pedal edema Extremity Narrative: Status post right toes amputated. Neuro Neuro Narrative: Alert and oriented x 3 Psych mental status grossly normal Risk Stratification Risk Stratification Applicable: Yes Age >/= 65: Yes >/= 3 CAD Risk Factors (HTN, HLD, DM, family hx of CAD, or current smoker): No Aspirin Use in the Past 7 Days: No Severe Angina (>/= episodes in 24 hours): No EKG ST Changes >/= 0.5mm: No Positive Cardiac Marker: Yes JAMARI Risk Stratification Score: 2 JAMARI % Risk: 8% Risk Charges/Coding Visit Charges Inpatient E&M: 64552 Init Hosp L3 Objective Data Vital Signs: Vital Signs Temp Pulse Resp BP Pulse Ox O2 Del Method O2 Flow Rate 97.8 F 62 19 H 130/69 H 95 Nasal Cannula 3 10/08/24 08:07 10/08/24 08:07 10/08/24 08:07 10/08/24 08:07 10/08/24 08:07 10/08/24 08:07 10/08/24 08:07 Oxygen Flow Rate (L/min) 3 Oxygen Delivery Method Nasal Cannula Weight: 153 lb 10.595 oz Body Mass Index (BMI) 27.2 Intake & Output: Intake and Output for Last 24 Hours 10/06/24 10/07/24 10/08/24 23:59 23:59 23:59 Intake Total 1216 / 1216 Output Total 1075 / 1075 Balance 141 / 141 Lab / Micro Data Attestation: I reviewed the patient's lab results. 10/07/24 22:22 10/07/24 22:22 Labs: Laboratory Results - last 24 hr 10/07/24 22:22: WBC 7.4, RBC 1.93 L, Hgb 6.5 L, Hct 20.6 L, MCV 106.7 H, MCH 33.7 H, MCHC 31.6 L, RDW Std Deviation 72.3 H, RDW Coeff of Kate 19.2 H, Plt Count 184, MPV 11.5, Immature Gran % (Auto) 0.400, Neut % (Auto) 71.8 H, Lymph % (Auto) 18.2 L, [place] % (Auto) 8.9, Eos % (Auto) 0.4, Baso % (Auto) 0.3, Absolute Neuts (auto) 5.3, Absolute Lymphs (auto) 1.35, Nucleated RBC % 1.5, Differential Comment SCANNED, Platelet Estimate ADEQUATE, Polychromasia 2+, Anisocytosis 2+, PT 29.4 H, INR 2.7, Sodium 134, Potassium 3.9, Chloride 102, Carbon Dioxide 16.2 L, Anion Gap 16 H, BUN 36 H, Creatinine 1.46 H, Estim Creat Clear Calc 26.99 L, Est GFR (MDRD) Non-Af 35 L, BUN/Creatinine Ratio 24.9 H, Glucose 140 H, Calcium 8.6, Magnesium 2.0, Troponin T High Sens 46 H, NT pro BNP II 2304 H 10/07/24 23:21: Blood Type A POSITIVE, Antibody Screen NEGATIVE, Crossmatch See Detail 10/08/24 00:15: Troponin T Hi Sens 2 Hr 42 H 10/08/24 02:37: Troponin T Hi Sens 4Hr 50 H 10/08/24 05:55: PT 22.3 H, INR 1.9 10/08/24 06:04: POC Glucose 96 Micro: Microbiology 10/07/24 22:53 Stool Stool Occult Blood (LATANYA) - Final Occult Blood Positive Rhythm Strip Rhythm Strip: Sinus Rhythm Rate: 65 Ectopy: None Cardiology Labs/Tests 10/07/24 22:22: WBC 7.4, RBC 1.93 L, Hgb 6.5 L, Hct 20.6 L, MCV 106.7 H, MCH 33.7 H, MCHC 31.6 L, Plt Count 184, MPV 11.5, Immature Gran % (Auto) 0.400, Neut % (Auto) 71.8 H, Lymph % (Auto) 18.2 L, [place] % (Auto) 8.9, Eos % (Auto) 0.4, Baso % (Auto) 0.3, Absolute Neuts (auto) 5.3, Nucleated RBC % 1.5, PT 29.4 H, INR 2.7, Sodium 134, Potassium 3.9, Chloride 102, Carbon Dioxide 16.2 L, Anion Gap 16 H, BUN 36 H, Creatinine 1.46 H, Est GFR (MDRD) Non-Af 35 L, BUN/Creatinine Ratio 24.9 H, Glucose 140 H, Calcium 8.6, Magnesium 2.0 10/08/24 05:55: PT 22.3 H, INR 1.9 Rhythm: EKG: ECHO: Stress Test: Cardiac Cath: PCI: CT Surgery: Holter monitor: EPS: PPM: CXR: Chest CT Scan: Radiography Diagnostic Testing: Radiology Impression Chest X-Ray 10/07/24 22:40 IMPRESSION: Trace left pleural effusion and mild cardiomegaly. Reading Location: [id number]
[2024-10-08 09:31] LABS: Absolute Lymphocyte Count 1.12 X10^3/uL (0.83-4.51); Absolute Neutrophil Count 5.3 X10^3/uL (2.0-7.7); Basophil# 0.03 X10^3/uL; Basophil% 0.4 % (0-1); Eosinophil# 0.06 X10^3/uL; Eosinophils% 0.8 % (0-5); Hematocrit 25.2 % (37-47); Hemoglobin 8.2 g/dL (12.0-15.0); Lymphocyte # 1.12 X10^3/ul (0.83-4.51); Lymphocyte % 15.5 % (19-41); Mean Corp Hgb Conc 32.5 g/dL (32-36); Mean Corpuscular Hgb 30.6 pg (27.0-32.0); Mean Platelet Vol. 9.9 fl (6.2-12.0); Monocyte# 0.69 X10^3/uL; Monocyte% 9.5 % (0-10); NRBC Flagged by Analyzer 1.7 % (0-5); Neutrophil # 5.29 X10^3/uL (2.7-7.7); Neutrophil % 73.2 % (47-70); POSITIVE MORPHOLOGY YES; Platelet Count 194 K/mm3 (150-450); RBC Distribution Width CV 21.8 % (11.6-14.6); RBC Distribution Width SD 70.7 fl (35.1-43.9); Red Blood Count 2.68 M/mm3 (4.2-5.4); White Blood Count 7.2 K/mm3 (4.4-11.0)
[2024-10-08 09:33] LABS: Differential Indicated SCAN CRITERIA MET
[2024-10-08 09:40] LABS: International Normalized Ratio 1.9; Prothrombin Time (Protime)PT. 22.5 SECONDS (11.7-14.9)
[2024-10-08 10:02] LABS: Anisocytosis 1+; Hypochromasia 1+; Polychromasia 1+
[2024-10-08 10:13] LABS: ALB/GLOB Ratio 1.5 RATIO (0.9-2.4); AST(SGOT) 20 U/L (<=31); Alanine Aminotransfer ALT/SGPT 11 U/L (<=34); Albumin, Serum 3.9 g/dL (3.4-4.8); Alkaline Phosphatase 48 U/L (35-104); Anion Gap 14 (5-15); BUN 36 mg/dL (4-19); Calcium,Total 9.1 mg/dL (7.6-11.0); Carbon Dioxide 19.3 mmol/L (21.0-32.0); Chloride 106 mmol/L (98-108); Creatinine, Serum 1.25 mg/dL (0.70-1.20); EST Glomerular Filtration Rate 43 (>60); Estimated Creatinine Clearance 31.37 ml/min (50-250); Globulin 2.7 g/dL (2.2-4.2); Glucose 121 mg/dL (70-99); Potassium 3.7 mmol/L (3.3-5.1); Protein, Total 6.6 g/dL (5.9-8.4); Sodium Level 140 mmol/L (133-145); Total Bilirubin 0.55 mg/dL (0.00-1.30)
--- NOTE | 2024-10-08 11:40 | CASEMGMT ---
XOCHILT HAND Assessment Face to Face with patient for initial transition planning/care coordination assessment. XOCHILT HAND introduced self and role at [facility], pt voices understanding. Pt is A&Ox4 and is resting comfortably in bed and is calm. Care providers, pharmacy, and demographics verified. Admitting dx: GI Bleed, ABLA, CP, HF Exacerbation LACE Strata: 2 PCP: Kendra Lucoi Specialists: Friend (GI), [facility] (Vascular), Evangelist (Podiatry) [facility] Insurance: [employer] [facility] Prescription Benefit: Yes LNOK: Calderon (H), Zahra (Daughter) Living Arrangements: Pt lives with her in a single story home with a basement and 2 steps to enter ADLs/IADLs: Pt reports that she is indep Transportation: Self, . DME: home oxygen through [employer]. Pt states that she only wears 2L @ HS only. However, Enrique from [employer] reports that the pt's current home oxygen order states 2 LPM w/ exertion. Pt states that she has a concentrator, x2 portable tanks, and a pulse ox. Pt educated that someone may need to bring in her portability @ the time of DC depending on the updated oxygen testing at the time of DC. Pt also reports that she has a BGM with sufficient supplies. Pt states that she religiously checks her BS and VS at home. Pt reports that she has a daily log for these. Pt states that she also has a FWW, WC, Shower chair, and grab bars. HHC[facility]SNF:[facility] Pt?s goal: Home Plan: Home, follow for updated oxygen Rx. See PT evaluation. At this time, the pt denies the need for SNF, HHC, or OP Tx. Pt states that she feels safe returning home with her once she is medically ready. Pt states that her daughter works M-F and that the pt and her watch their 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 (Ages 11 and 7) every day throughout the week. Pt denies further need at this time. Report given to PARI MUTUEL TICKET CASHIER CM. Di Sauceda RN, CM
[2024-10-08 12:19] LABS: Bedside Glucose 143 mg/dL (74-106)
[2024-10-08 13:52] LABS: Cholesterol 160 mg/dL (<=200); High Density Lipoprotein 25 mg/dL; Low Density Lipoprotein Calc. 64 mg/dL; Triglycerides 359 mg/dL; Very Low Density Lipoprotein 72 mg/dL (5-40); cholesterol:hdl ratio screen 6.48
--- NOTE | 2024-10-08 15:55 | CHAPLAIN ---
Type of Pastoral Visit _x__ Initial Visit ___ Follow-up Visit ___ On-call Visit ___ General Patient Visit ___ Spiritual Assessment ___ Family Conference ___ Bereavement ___ Rapid Response ___ Code Blue ___ Other (describe below) Pastoral Care Referral From _x__ Patient ___ Family ___ Nurse ___ Physician ___ Rod Bending Machine Operator ___ Injection Molding Supervisor ___ Other (describe below) Sacrament/Intervention _x__ Active listening ___ Anointing ___ Confucianist ___ Bereavement ___ Communion _x__ Emmy exploration ___ _x__ Life review _x__ Prayer ___ Reconciliation ___ Sacrament of Sick ___ Supportive presence ___ Wedding ___ Other (describe below) Pastoral Comments 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
--- NOTE | 2024-10-08 15:57 | PN.HOSP_ITS ---
Reason for Visit Reason for Visit: Diagnoses Acute posthemorrhagic anemia (10/07/24) Activated protein C resistance (10/07/24) Essential (primary) hypertension (10/07/24) Nonrheumatic aortic (valve) stenosis (10/07/24) Paroxysmal atrial fibrillation (10/07/24) Unspecified systolic (congestive) heart failure (10/07/24) Gastrointestinal hemorrhage, unspecified (10/07/24) Chest pain, unspecified (10/07/24) Subjective Subjective Feeling well. No new complaints. Objective Data Objective Data Vital Signs: Vital Signs Temp Pulse Resp BP Pulse Ox O2 Del Method O2 Flow Rate 36.7 C 60 18 127/57 H 97 Nasal Cannula 3 10/08/24 12:00 10/08/24 12:00 10/08/24 12:00 10/08/24 12:00 10/08/24 12:00 10/08/24 12:00 10/08/24 12:00 Oxygen Flow Rate (L/min) 3 Oxygen Delivery Method Nasal Cannula Weight: 69.7 kg Body Mass Index (BMI) 27.2 Intake & Output: Intake and Output for Last 24 Hours 10/06/24 10/07/24 10/08/24 23:59 23:59 23:59 Intake Total 1387.58 / 1387.58 Output Total 1475 / 1475 Balance -87.42 / -87.42 Lab / Micro Data 10/08/24 09:20 10/08/24 09:20 Labs: Laboratory Results - last 24 hr 10/07/24 22:22: WBC 7.4, RBC 1.93 L, Hgb 6.5 L, Hct 20.6 L, MCV 106.7 H, MCH 33.7 H, MCHC 31.6 L, RDW Std Deviation 72.3 H, RDW Coeff of Kate 19.2 H, Plt Count 184, MPV 11.5, Immature Gran % (Auto) 0.400, Neut % (Auto) 71.8 H, Lymph % (Auto) 18.2 L, Hodgeman % (Auto) 8.9, Eos % (Auto) 0.4, Baso % (Auto) 0.3, Absolute Neuts (auto) 5.3, Absolute Lymphs (auto) 1.35, Nucleated RBC % 1.5, Differential Comment SCANNED, Platelet Estimate ADEQUATE, Polychromasia 2+, Anisocytosis 2+, PT 29.4 H, INR 2.7, Sodium 134, Potassium 3.9, Chloride 102, Carbon Dioxide 16.2 L, Anion Gap 16 H, BUN 36 H, Creatinine 1.46 H, Estim Creat Clear Calc 26.99 L, Est GFR (MDRD) Non-Af 35 L, BUN/Creatinine Ratio 24.9 H, Glucose 140 H, Calcium 8.6, Magnesium 2.0, Troponin T High Sens 46 H, NT pro BNP II 2304 H 10/07/24 23:21: Blood Type A POSITIVE, Antibody Screen NEGATIVE, Crossmatch See Detail 10/08/24 00:15: Troponin T Hi Sens 2 Hr 42 H 10/08/24 02:37: Troponin T Hi Sens 4Hr 50 H 10/08/24 05:55: PT 22.3 H, INR 1.9 10/08/24 06:04: POC Glucose 96 10/08/24 09:20: WBC 7.2, RBC 2.68 L, Hgb 8.2 L, Hct 25.2 L, MCV 94.0 D, MCH 30.6, MCHC 32.5, RDW Std Deviation 70.7 H, RDW Coeff of Kate 21.8 H, Plt Count 194, MPV 9.9, Immature Gran % (Auto) 0.600, Neut % (Auto) 73.2 H, Lymph % (Auto) 15.5 L, Hodgeman % (Auto) 9.5, Eos % (Auto) 0.8, Baso % (Auto) 0.4, Absolute Neuts (auto) 5.3, Absolute Lymphs (auto) 1.12, Nucleated RBC % 1.7, Polychromasia 1+, Hypochromasia 1+, Anisocytosis 1+, PT 22.5 H, INR 1.9, Sodium 140, Potassium 3.7, Chloride 106, Carbon Dioxide 19.3 L, Anion Gap 14, BUN 36 H, Creatinine 1.25 H, Estim Creat Clear Calc 31.37 L, Est GFR (MDRD) Non-Af 43 L, B UN/Creatinine Ratio 29.0 H, Glucose 121 H, Calcium 9.1, Total Bilirubin 0.55, AST 20, ALT 11, Alkaline Phosphatase 48, Total Protein 6.6, Albumin 3.9, Globulin 2.7, Albumin/Globulin Ratio 1.5, Triglycerides 359 H, Cholesterol 160, LDL Cholesterol, Calc 64, VLDL Cholesterol 72 H, HDL Cholesterol 25 L, Cholesterol/HDL Ratio 6.48 10/08/24 11:59: POC Glucose 143 H Micro: Microbiology 10/07/24 22:53 Stool Stool Occult Blood (LATANYA) - Final Occult Blood Positive Radiography Diagnostic Testing: Radiology Impression Chest X-Ray 10/07/24 22:40 IMPRESSION: Trace left pleural effusion and mild cardiomegaly. Reading Location: [id number] Rhythm Strip Rhythm Strip: Sinus Rhythm Rate: 65 Ectopy: None Physical Exam Const alert and no apparent distress HEENT head/scalp atraumatic and moist oral mucous membranes Resp normal respiratory effort, no retractions, no use of accessory muscles and clear to auscultation bilaterally Cardio regular rate, regular rhythm, S1 normal heart sound and S2 normal heart sound GI normal to inspection, nondistended, normoactive bowel sounds, soft to palpation, non-tender and non-distended Neuro Sensorium / Orientation: awake and alert Psych affect normal Assessment & Plan Assessment/Plan (1) ABLA (acute blood loss anemia): PLAN: Hg down to 6.5, now up to 8.2. Continue to monitor. 2/2 GI complicated by anticoagulation Warfarin held. (2) GI bleed: PLAN: Unclear source. on pantoprazole gtt PLAN: Plan Chronic conditions: * HFpEF: on furomseide, furosemide, losartan * CAD: clopidogrel held given GIB * pAfib: warfarin held given GIB VTE prophylaxis: SCDs. Charges/Coding Visit Charges Inpatient E&M: 72346 Subs Hosp L2
[2024-10-08] MEDS: Gabapentin 100 MG Capsule PO (17:01)
[2024-10-08 17:20] LABS: Bedside Glucose 126 mg/dL (74-106)
--- NOTE | 2024-10-08 18:38 | EX.PCM.CON.G ---
HPI Consult Data Date of Consult: 10/08/24 HPI Narrative Reason for Consultation: GI bleed HPI Narrative: JAROD PRITCHARD, is a 83-year-old female known to GI service presented to the ED with dyspnea for the past day or 2. Her hemoglobin discovered to be 6.8. MHx of diabetes, HTN, factor V Leiden on Coumadin, dilated cardiomyopathy, carotid stenosis s/p endarterectomy. 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 TCU 03.19.24-12.24 following amputation. GI consulted due to iron def anemia. Underwent EGD showing oozing gastric ulcer with clip placement and non bleeding duodenal ulcer. EGD 04.04.24; Normal esophagus. - Oozing gastric ulcer with a visible vessel. Clip was placed. 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 - Non-bleeding duodenal ulcers with no stigmata of bleeding. Biopsied. EGD - The examined esophagus was normal. Patchy mildly erythematous mucosa without bleeding was found in the gastric body. Biopsies were taken with a cold forceps for histology. Verification of patient identification for the specimen was done. Estimated blood loss was minimal. Biopsies were taken with a cold forceps for Helicobacter pylori testing. Verification of patient identification for the specimen was done. Estimated blood loss was minimal. No gross lesions were noted in the second portion of the duodenum. Impression: - Normal esophagus. - Erythematous mucosa in the gastric body. Biopsied. - No gross lesions in the second portion of the duodenum. Recommendation: - Discharge patient to home. [facility] Medical History TIA (transient ischemic attack) Wears glasses Depression Heartburn Non-smoker On home oxygen therapy Hypertension Gastric ulcer Dilated cardiomyopathy Prolonged QT interval Elevated blood pressure reading without diagnosis of hypertension Factor V Leiden Anxiety Hypokalemia Acute hypoxemic respiratory failure CHF (congestive heart failure) Home Medications ?Medication ?Instructions ?Recorded ?Last Taken ?Type oxybutynin chloride 10 mg 10 mg PO DAILY bladder 09/23/23 08/22/24 History tablet,extended release 24 hr glimepiride 2 mg tablet 2 mg PO DAILY dm 12/31/23 Unknown History ferrous sulfate 325 mg (65 mg 325 mg PO DAILY@1200 supplement 30 10/04/24 Unknown Rx iron) tablet (FeroSul) days #30 tabs warfarin 2 mg tablet 2 mg PO MOWEFR afib 03/07/24 Unknown History furosemide 40 mg tablet 40 mg PO DAILY water pill 30 days 03/19/24 01/27/24 Rx #60 tabs clopidogrel 75 mg tablet 75 mg PO DAILY 30 days #30 tabs 04/05/24 Unknown Rx pantoprazole 40 mg tablet,delayed 40 mg PO BID 30 days #60 tabs 04/05/24 Unknown Rx release simvastatin 80 mg tablet 80 mg PO QHS 06/20/24 Unknown History metoprolol succinate 50 mg 50 mg PO BID #1 TAB 07/20/24 08/22/24 Rx tablet,extended release 24 hr magnesium chloride 64 mg 128 mg PO DAILY 08/17/24 Unknown History (magnesium chloride) tablet,delayed release (Mag 64) warfarin 3 mg tablet 3 mg PO SUTUTHSA 08/17/24 Unknown History losartan 100 mg tablet 100 mg PO QDAY #90 tabs 08/20/24 Unknown Rx potassium chloride 20 mEq 20 meq PO BID 08/20/24 Unknown History tablet,extended release amlodipine 10 mg tablet 10 mg PO .COMPLEX #90 tabs 09/04/24 Unknown Rx acetaminophen 500 mg capsule 500 mg PO QHS PRN pain 10/07/24 Unknown History fluticasone propionate 50 2 spray intranasal Q12H PRN 10/07/24 Unknown History mcg/actuation nasal congestion spray,suspension gabapentin 100 mg capsule 100 mg PO TID 10/07/24 Unknown History tizanidine 2 mg tablet 2 mg PO Q8 PRN Muscle Spasm 10/07/24 Unknown History Allergy/AdvReac Type Severity Reaction Status Date / Time benazepril (From Lotensin) Allergy Mild DOESNT Verified 10/07/24 21:21 REMEMBER quinapril (From Accupril) Allergy Mild UNKNOWN Verified 10/07/24 21:21 Sulfa (Sulfonamide Allergy Mild Hives Verified 10/07/24 21:21 Antibiotics) verapamil (From Calan) Allergy Mild UNKNOWN Verified 10/07/24 21:21 Family History Mother Diabetes Father Diabetes CVA (cerebral vascular accident) Heart disease Hypertension Myocardial infarction CAD (coronary artery disease) Brother Myocardial infarction Hypertension Heart disease CAD (coronary artery disease) Sister NAFLD (nonalcoholic fatty liver disease) Other Asthma COPD (chronic obstructive pulmonary disease) Surgical History Hx of amputation History of transmetatarsal amputation of right foot History of femoropopliteal bypass S/P carotid endarterectomy Social History household members: spouse Smoking Status: Never smoker alcohol intake: never substance use type: does not use ROS Constitutional Constitutional: Denies fatigue, fever(s), poor appetite, weight gain or weight loss Gastrointestinal Gastrointestinal: Denies belching, bloating, change in bowel habits, change in stool character, chewing difficulty, coffee ground emesis, constipation, cramping, diarrhea, dyspepsia, dysphagia, early satiety, excessive flatus, fecal incontinence, heartburn, hematemesis, hematochezia, hemorrhoids, loose stools, melena, nausea, odynophagia, rectal bleeding, tenesmus, vomiting or weight changes Lab / Micro Data 10/08/24 09:20 10/08/24 09:20 Labs: Laboratory Results - last 24 hr 10/07/24 22:22: WBC 7.4, RBC 1.93 L, Hgb 6.5 L, Hct 20.6 L, MCV 106.7 H, MCH 33.7 H, MCHC 31.6 L, RDW Std Deviation 72.3 H, RDW Coeff of Kate 19.2 H, Plt Count 184, MPV 11.5, Immature Gran % (Auto) 0.400, Neut % (Auto) 71.8 H, Lymph % (Auto) 18.2 L, Loíza % (Auto) 8.9, Eos % (Auto) 0.4, Baso % (Auto) 0.3, Absolute Neuts (auto) 5.3, Absolute Lymphs (auto) 1.35, Nucleated RBC % 1.5, Differential Comment SCANNED, Platelet Estimate ADEQUATE, Polychromasia 2+, Anisocytosis 2+, PT 29.4 H, INR 2.7, Sodium 134, Potassium 3.9, Chloride 102, Carbon Dioxide 16.2 L, Anion Gap 16 H, BUN 36 H, Creatinine 1.46 H, Estim Creat Clear Calc 26.99 L, Est GFR (MDRD) Non-Af 35 L, BUN/Creatinine Ratio 24.9 H, Glucose 140 H, Calcium 8.6, Magnesium 2.0, Troponin T High Sens 46 H, NT pro BNP II 2304 H 10/07/24 23:21: Blood Type A POSITIVE, Antibody Screen NEGATIVE, Crossmatch See Detail 10/08/24 00:15: Troponin T Hi Sens 2 Hr 42 H 10/08/24 02:37: Troponin T Hi Sens 4Hr 50 H 10/08/24 05:55: PT 22.3 H, INR 1.9 10/08/24 06:04: POC Glucose 96 10/08/24 09:20: WBC 7.2, RBC 2.68 L, Hgb 8.2 L, Hct 25.2 L, MCV 94.0 D, MCH 30.6, MCHC 32.5, RDW Std Deviation 70.7 H, RDW Coeff of Kate 21.8 H, Plt Count 194, MPV 9.9, Immature Gran % (Auto) 0.600, Neut % (Auto) 73.2 H, Lymph % (Auto) 15.5 L, Loíza % (Auto) 9.5, Eos % (Auto) 0.8, Baso % (Auto) 0.4, Absolute Neuts (auto) 5.3, Absolute Lymphs (auto) 1.12, Nucleated RBC % 1.7, Polychromasia 1+, Hypochromasia 1+, Anisocytosis 1+, PT 22.5 H, INR 1.9, Sodium 140, Potassium 3.7, Chloride 106, Carbon Dioxide 19.3 L, Anion Gap 14, BUN 36 H, Creatinine 1.25 H, Estim Creat Clear Calc 31.37 L, Est GFR (MDRD) Non-Af 43 L, BUN/Creatinine Ratio 29.0 H, Glucose 121 H, Calcium 9.1, Total Bilirubin 0.55, AST 20, ALT 11, Alkaline Phosphatase 48, Total Protein 6.6, Albumin 3.9, Globulin 2.7, Albumin/Globulin Ratio 1.5, Triglycerides 359 H, Cholesterol 160, LDL Cholesterol, Calc 64, VLDL Cholesterol 72 H, HDL Cholesterol 25 L, Cholesterol/HDL Ratio 6.48 10/08/24 11:59: POC Glucose 143 H 10/08/24 17:00: POC Glucose 126 H Micro: Microbiology 10/07/24 22:53 Stool Stool Occult Blood (LATANYA) - Final Occult Blood Positive Rhythm Strip Rhythm Strip: Sinus Rhythm Rate: 65 Ectopy: None Imaging Radiology Impression Chest X-Ray 10/07/24 22:40 IMPRESSION: Trace left pleural effusion and mild cardiomegaly. Reading Location: [id number]
[2024-10-08] MEDS: Metoprolol(XL)Succ 50 MG Tablet PO (21:09)
[2024-10-08] MEDS: Atorvastatin Calcium 40 MG Tablet PO (21:13)
[2024-10-09] VITALS (15 sets, daily range): BP systolic 109–141; BP diastolic 50–71; PULSE 62–75; RESP 16–18; TEMP 36.4–37.1; O2SAT 94–99; BMI 26.6
[2024-10-09 00:32] LABS: Bedside Glucose 103 mg/dL (74-106)
[2024-10-09 05:47] LABS: Absolute Neutrophil Count 4.7 X10^3/uL (2.0-7.7); Basophil# 0.02 X10^3/uL; Basophil% 0.3 % (0-1); Eosinophil# 0.09 X10^3/uL; Eosinophils% 1.4 % (0-5); Hematocrit 24.5 % (37-47); Lymphocyte % 18.2 % (19-41); Mean Corp Hgb Conc 32.7 g/dL (32-36); Mean Corpuscular Hgb 31.1 pg (27.0-32.0); Mean Corpuscular Volume 95.3 fL (81-99); Mean Platelet Vol. 9.9 fl (6.2-12.0); Monocyte% 9.1 % (0-10); NRBC Flagged by Analyzer 0.6 % (0-5); Neutrophil # 4.66 X10^3/uL (2.7-7.7); Neutrophil % 70.7 % (47-70); POSITIVE MORPHOLOGY YES; Platelet Count 192 K/mm3 (150-450); RBC Distribution Width CV 22.8 % (11.6-14.6); RBC Distribution Width SD 76.2 fl (35.1-43.9); Red Blood Count 2.57 M/mm3 (4.2-5.4); White Blood Count 6.6 K/mm3 (4.4-11.0)
--- NOTE | 2024-10-09 05:55 | EKG12_ITS ---
Test Reason : GI BEED Blood Pressure : */* mmHG Vent. Rate : 61 BPM Atrial Rate : 625 BPM P-R Int : * ms QRS Dur : 92 ms QT Int : 472 ms P-R-T Axes : * -34 40 degrees QTcB Int : 475 ms sinus bardycardia Left axis deviation ST & T wave abnormality, consider lateral ischemia Abnormal ECG When compared with ECG of 08-Oct-2024 05:27, Current undetermined rhythm precludes rhythm comparison, needs review Nonspecific T wave abnormality now evident in Inferior leads Confirmed by Roly Herrera ([id number]), general expeditor CHINA ADAMES ([id number]) on 10/09/2024 11:09:08 AM Referred By: RAMESH Confirmed By: Roly Herrera
[2024-10-09 06:15] LABS: International Normalized Ratio 1.9; Prothrombin Time (Protime)PT. 22.2 SECONDS (11.7-14.9)
[2024-10-09 06:16] LABS: Partial Thromboplast Time 43.4 Seconds (24.1-36.2)
[2024-10-09 06:18] LABS: Differential Indicated SCAN CRITERIA MET
[2024-10-09 06:19] LABS: Anion Gap 12 (5-15); BUN 20 mg/dL (4-19); BUN/Creat Ratio 20.5 RATIO (10-20); Carbon Dioxide 20.2 mmol/L (21.0-32.0); Chloride 108 mmol/L (98-108); Creatinine, Serum 0.98 mg/dL (0.70-1.20); EST Glomerular Filtration Rate 57 (>60); Estimated Creatinine Clearance 39.67 ml/min (50-250); Glucose 132 mg/dL (70-99); Potassium 3.6 mmol/L (3.3-5.1); Sodium Level 141 mmol/L (133-145)
[2024-10-09 06:30] LABS: Anisocytosis 2+; Differential Comment SCANNED; Polychromasia 1+
[2024-10-09 06:31] LABS: Macrocytosis 1+; Microcytosis 1+
[2024-10-09 06:53] LABS: Bedside Glucose 121 mg/dL (74-106)
--- NOTE | 2024-10-09 08:26 | PCM.PN.HOSP ---
Reason for Visit Reason for Visit: Diagnoses Acute posthemorrhagic anemia (10/07/24) Activated protein C resistance (10/07/24) Essential (primary) hypertension (10/07/24) Nonrheumatic aortic (valve) stenosis (10/07/24) Paroxysmal atrial fibrillation (10/07/24) Unspecified systolic (congestive) heart failure (10/07/24) Gastrointestinal hemorrhage, unspecified (10/07/24) Chest pain, unspecified (10/07/24) Subjective Subjective No further events. Objective Data Objective Data Vital Signs: Vital Signs Temp Pulse Resp BP Pulse Ox O2 Del Method O2 Flow Rate 36.9 C 62 16 125/69 H 95 Nasal Cannula 2 10/09/24 03:20 10/09/24 03:23 10/09/24 03:20 10/09/24 03:20 10/09/24 03:23 10/09/24 03:24 10/09/24 03:24 Oxygen Flow Rate (L/min) 2 Oxygen Delivery Method Nasal Cannula Weight: 68.4 kg Body Mass Index (BMI) 26.6 Intake & Output: Intake and Output for Last 24 Hours 10/07/24 10/08/24 10/09/24 23:59 23:59 23:59 Intake Total 1487.58 / 1487.58 Output Total 1475 / 1475 Balance 12.58 / 12.58 Lab / Micro Data 10/09/24 05:15 10/09/24 05:15 Labs: Laboratory Results - last 24 hr 10/08/24 09:20: WBC 7.2, RBC 2.68 L, Hgb 8.2 L, Hct 25.2 L, MCV 94.0 D, MCH 30.6, MCHC 32.5, RDW Std Deviation 70.7 H, RDW Coeff of Kate 21.8 H, Plt Count 194, MPV 9.9, Immature Gran % (Auto) 0.600, Neut % (Auto) 73.2 H, Lymph % (Auto) 15.5 L, Mcdonough % (Auto) 9.5, Eos % (Auto) 0.8, Baso % (Auto) 0.4, Absolute Neuts (auto) 5.3, Absolute Lymphs (auto) 1.12, Nucleated RBC % 1.7, Polychromasia 1+, Hypochromasia 1+, Anisocytosis 1+, PT 22.5 H, INR 1.9, Sodium 140, Potassium 3.7, Chloride 106, Carbon Dioxide 19.3 L, Anion Gap 14, BUN 36 H, Creatinine 1.25 H, Estim Creat Clear Calc 31.37 L, Est GFR (MDRD) Non-Af 43 L, BUN/Creatinine Ratio 29.0 H, Glucose 121 H, Calcium 9.1, Total Bilirubin 0.55, AST 20, ALT 11, Alkaline Phosphatase 48, Total Protein 6.6, Albumin 3.9, Globulin 2.7, Albumin/Globulin Ratio 1.5, Triglycerides 359 H, Cholesterol 160, LDL Cholesterol, Calc 64, VLDL Cholesterol 72 H, HDL Cholesterol 25 L, Cholesterol/HDL Ratio 6.48 10/08/24 11:59: POC Glucose 143 H 10/08/24 17:00: POC Glucose 126 H 10/09/24 00:03: POC Glucose 103 10/09/24 05:15: WBC 6.6, RBC 2.57 L, Hgb 8.0 L, Hct 24.5 L, MCV 95.3, MCH 31.1, MCHC 32.7, RDW Std Deviation 76.2 H, RDW Coeff of Kate 22.8 H, Plt Count 192, MPV 9.9, Immature Gran % (Auto) 0.300, Neut % (Auto) 70.7 H, Lymph % (Auto) 18.2 L, Mcdonough % (Auto) 9.1, Eos % (Auto) 1.4, Baso % (Auto) 0.3, Absolute Neuts (auto) 4.7, Absolute Lymphs (auto) 1.20, Nucleated RBC % 0.6, Differential Comment SCANNED, Polychromasia 1+, Anisocytosis 2+, Microcytosis 1+, Macrocytosis 1+, PT 22.2 H, INR 1.9, APTT 43.4 H, Sodium 141, Potassium 3.6, Chloride 108, Carbon Dioxide 20.2 L, Anion Gap 12, BUN 20 H, Creatinine 0.98, Estim Creat Clear Calc 39.67 L, Est GFR (MDRD) Non-Af 57 L, BUN/Creatinine Ratio 20.5 H, Glucose 132 H, Calcium 9.0 10/09/24 06:30: POC Glucose 121 H Micro: Microbiology 10/07/24 22:53 Stool Stool Occult Blood (LATANYA) - Final Occult Blood Positive Rhythm Strip Rhythm Strip: Sinus Rhythm Rate: 65 Ectopy: None Physical Exam Const alert and oriented x3 Constitutional Narrative: up in chair with great-granddaughter in chair with her. HEENT head/scalp atraumatic and moist oral mucous membranes Neuro Sensorium / Orientation: awake and alert Assessment & Plan Assessment/Plan (1) ABLA (acute blood loss anemia): PLAN: Hg down to 6.5, now up to 8 Continue to monitor. 2/2 GI complicated by anticoagulation Warfarin held. (2) GI bleed: PLAN: EGD on 10/09 showed 2 bleeding angiodysplastic lesions in the stomach. on pantoprazole gtt, since no PUD, will change to boluses. PLAN: Plan Chronic conditions: HFpEF: on furomseide, furosemide, losartan CAD: clopidogrel held given GIB pAfib: warfarin held given GIB VTE prophylaxis: SCDs. Charges/Coding Visit Charges Inpatient E&M: 15267 Subs Hosp L2
--- NOTE | 2024-10-09 08:49 | PN.CARD_ITS ---
Subjective Subjective Patient sleeping soundly and was awoken and reports that she is doing fairly well. She denies any shortness of breath denies any lightheadedness syncope or near syncope. Her heart rate has been in the 50-55 bpm range. Hemoglobin is 8.0 this morning telemetry is difficult to see if this is either junctional or sinus bradycardia. Twelve-lead ECG done last evening appears to be sinus bradycardia. She is on metoprolol succinate 50 mg twice daily. Objective Data Vital Signs: Vital Signs Temp Pulse Resp BP Pulse Ox O2 Del Method O2 Flow Rate 98.4 F 62 16 125/69 H 95 Nasal Cannula 2 10/09/24 03:20 10/09/24 03:23 10/09/24 03:20 10/09/24 03:20 10/09/24 08:00 10/09/24 08:00 10/09/24 08:00 Oxygen Flow Rate (L/min) 2 Oxygen Delivery Method Nasal Cannula Weight: 150 lb 12.739 oz Body Mass Index (BMI) 26.6 Intake & Output: Intake and Output for Last 24 Hours 10/07/24 10/08/24 10/09/24 23:59 23:59 23:59 Intake Total 1487.58 / 1487.58 Output Total 1475 / 1475 Balance 12.58 / 12.58 Lab / Micro Data Attestation: I reviewed the patient's lab results. 10/09/24 05:15 10/09/24 05:15 Labs: Laboratory Results - last 24 hr 10/08/24 09:20: WBC 7.2, RBC 2.68 L, Hgb 8.2 L, Hct 25.2 L, MCV 94.0 D, MCH 30.6, MCHC 32.5, RDW Std Deviation 70.7 H, RDW Coeff of Kate 21.8 H, Plt Count 194, MPV 9.9, Immature Gran % (Auto) 0.600, Neut % (Auto) 73.2 H, Lymph % (Auto) 15.5 L, [place] % (Auto) 9.5, Eos % (Auto) 0.8, Baso % (Auto) 0.4, Absolute Neuts (auto) 5.3, Absolute Lymphs (auto) 1.12, Nucleated RBC % 1.7, Polychromasia 1+, Hypochromasia 1+, Anisocytosis 1+, PT 22.5 H, INR 1.9, Sodium 140, Potassium 3.7, Chloride 106, Carbon Dioxide 19.3 L, Anion Gap 14, BUN 36 H, Creatinine 1.25 H, Estim Creat Clear Calc 31.37 L, Est GFR (MDRD) Non-Af 43 L, B UN/Creatinine Ratio 29.0 H, Glucose 121 H, Calcium 9.1, Total Bilirubin 0.55, AST 20, ALT 11, Alkaline Phosphatase 48, Total Protein 6.6, Albumin 3.9, Globulin 2.7, Albumin/Globulin Ratio 1.5, Triglycerides 359 H, Cholesterol 160, LDL Cholesterol, Calc 64, VLDL Cholesterol 72 H, HDL Cholesterol 25 L, Cholesterol/HDL Ratio 6.48 10/08/24 11:59: POC Glucose 143 H 10/08/24 17:00: POC Glucose 126 H 10/09/24 00:03: POC Glucose 103 10/09/24 05:15: WBC 6.6, RBC 2.57 L, Hgb 8.0 L, Hct 24.5 L, MCV 95.3, MCH 31.1, MCHC 32.7, RDW Std Deviation 76.2 H, RDW Coeff of Kate 22.8 H, Plt Count 192, MPV 9.9, Immature Gran % (Auto) 0.300, Neut % (Auto) 70.7 H, Lymph % (Auto) 18.2 L, [place] % (Auto) 9.1, Eos % (Auto) 1.4, Baso % (Auto) 0.3, Absolute Neuts (auto) 4.7, Absolute Lymphs (auto) 1.20, Nucleated RBC % 0.6, Differential Comment SCANNED, Polychromasia 1+, Anisocytosis 2+, Microcytosis 1+, Macrocytosis 1+, PT 22.2 H, INR 1.9, APTT 43.4 H, Sodium 141, Potassium 3.6, Chloride 108, Carbon Dioxide 20.2 L, Anion Gap 12, BUN 20 H, Creatinine 0.98, Estim Creat Clear Calc 39.67 L, Est GFR (MDRD) Non-Af 57 L, BUN/Creatinine Ratio 20.5 H, Glucose 132 H, Calcium 9.0 10/09/24 06:30: POC Glucose 121 H Rhythm Strip Rhythm Strip: Sinus Rhythm Rate: 55 Ectopy: PVC(s) Cardiology Labs/Tests 10/08/24 09:20: WBC 7.2, RBC 2.68 L, Hgb 8.2 L, Hct 25.2 L, MCV 94.0 D, MCH 30.6, MCHC 32.5, Plt Count 194, MPV 9.9, Immature Gran % (Auto) 0.600, Neut % (Auto) 73.2 H, Lymph % (Auto) 15.5 L, [place] % (Auto) 9.5, Eos % (Auto) 0.8, Baso % (Auto) 0.4, Absolute Neuts (auto) 5.3, Nucleated RBC % 1.7, PT 22.5 H, INR 1.9, Sodium 140, Potassium 3.7, Chloride 106, Carbon Dioxide 19.3 L, Anion Gap 14, BUN 36 H, Creatinine 1.25 H, Est GFR (MDRD) Non-Af 43 L, BUN/Creatinine Ratio 29.0 H, Glucose 121 H, Calcium 9.1, Total Bilirubin 0.55, Triglycerides 359 H, Cholesterol 160, VLDL Cholesterol 72 H, HDL Cholesterol 25 L, Cholesterol/HDL Ratio 6.48 10/09/24 05:15: WBC 6.6, RBC 2.57 L, Hgb 8.0 L, Hct 24.5 L, MCV 95.3, MCH 31.1, MCHC 32.7, Plt Count 192, MPV 9.9, Immature Gran % (Auto) 0.300, Neut % (Auto) 70.7 H, Lymph % (Auto) 18.2 L, [place] % (Auto) 9.1, Eos % (Auto) 1.4, Baso % (Auto) 0.3, Absolute Neuts (auto) 4.7, Nucleated RBC % 0.6, PT 22.2 H, INR 1.9, APTT 43.4 H, Sodium 141, Potassium 3.6, Chloride 108, Carbon Dioxide 20.2 L, Anion Gap 12, BUN 20 H, Creatinine 0.98, Est GFR (MDRD) Non-Af 57 L, B UN/Creatinine Ratio 20.5 H, Glucose 132 H, Calcium 9.0 Rhythm: EKG: ECHO: Stress Test: Cardiac Cath: PCI: CT Surgery: Holter monitor: EPS: PPM: CXR: Chest CT Scan: Physical Exam Const alert and oriented x3 HEENT normocephalic Eyes EOMs intact bilaterally Neck no JVD Resp normal respiratory effort and clear to auscultation bilaterally Cardio Cardio Narrative: Distant heart tones Rate: bradycardia Rhythm: regular rhythm Heart Sounds: S1 normal and S2 normal; Negative for click, gallop or murmur Extremity no pedal edema Neuro Neuro Narrative: Alert and oriented x 3 Psych mental status grossly normal Assessment & Plan Assessment/Plan (1) GI bleed: QUALIFIERS: GI bleed type/associated pathology: melena Qualified Code(s): K92.1 - Melena PLAN: Hemoglobin is 8.0 this morning the patient is being evaluated Dr. Giron. (2) Hypertension: QUALIFIERS: Hypertension type: primary hypertension Qualified Code(s): I10 - Essential (primary) hypertension PLAN: Patient's blood pressure is well-controlled on her current medical therapy. (3) Factor V Leiden: PLAN: Patient carries a history of factor V Leiden deficiency. She has been on long-term Coumadin to treat this. Currently this is being held due to her recurrent GI bleeding. (4) Atrial fibrillation: QUALIFIERS: Atrial fibrillation type: paroxysmal Qualified Code(s): I48.0 - Paroxysmal atrial fibrillation PLAN: Patient's rhythm appears to be sinus bradycardia at 55 bpm. This is from an ECG done at 0400 hrs. this morning. Her telemetry is very difficult to see P waves but this is a regular rhythm at 55-60 bpm. I would recommend that we decrease her metoprolol succinate to 25 mg twice daily. She is not on oral anticoagulation therapy at this time given her ongoing GI bleeding issues. (5) (HFpEF) heart failure with preserved ejection fraction: QUALIFIERS: Heart failure chronicity: chronic Qualified Code(s): I50.32 - Chronic diastolic (congestive) heart failure PLAN: Patient appears to be adequately compensated on today's exam. She does have a known history of an EF of 63% with mild aortic stenosis. PLAN: Plan 1. Will decrease metoprolol succinate to 25 mg twice daily given the patient's bradycardia. 2. Will continue to follow along as you directed. 3. From a cardiovascular standpoint the patient can proceed with GI evaluation as indicated. Charges/Coding Visit Charges Inpatient E&M: 18205 Subs Hosp L2
[2024-10-09] MEDS: Pantoprazole Sodium 80 MG in 0.9% Normal Saline (100mL Bag) 80 ML 10 MG CONT INF (09:49)
--- NOTE | 2024-10-09 10:22 | PRE.ANES_ITS ---
ASA Classification* ASA Classification ASA Classification: 3 and E Assessment & Plan Anesthesia* Anesthesia Assessment Anesthesia Assessment: Discussed sedation and/or anesthesia options, risks, benefits, and alternatives with patient/parents/legal guardian/POA. Questions invited. The patient/parents/legal guardian/POA seems to understand and agrees to proceed with anesthesia plan. Reviewed the physical assessment, medical history, allergy history and patient home medications list prior to surgery/procedure/anesthetic and documented any changes. Performed airway and anesthesia risk assessments. Anesthesia Type Anesthesia Type: MAC Anesthesia Focused Assessment* Temperature: 98.4 F Pulse Rate: 62 Blood Pressure: 125/69 Respiratory Rate: 16 Pulse Ox: 95 Oxygen Flow Rate (L/min): 2 Airway Assessment Mouth opens: >3 cm Mallampati Score: II Comment: Echocardiogram 12/31/2023. EF 35 to 40%. Labs Anesthesia Preop lab: CBC WBC 6.6 K/mm3 (4.4-11.0) 10/09/24 05:15 10/09/24 RBC 2.57 M/mm3 (4.2-5.4) L 10/09/24 05:15 10/09/24 Hgb 8.0 g/dL (12.0-15.0) L 10/09/24 05:15 10/09/24 Hct 24.5 % (37-47) L 10/09/24 05:15 10/09/24 Plt Count 192 K/mm3 (150-450) 10/09/24 05:15 10/09/24 CHEMISTRY Potassium 3.6 mmol/L (3.3-5.1) 10/09/24 05:15 10/09/24 Sodium 141 mmol/L (133-145) 10/09/24 05:15 10/09/24 Magnesium 2.0 mg/dL (1.5-2.2) 10/07/24 22:22 10/07/24 Phosphorus 4.1 mg/dL (2.5-4.9) 03/08/24 05:15 03/08/24 BUN 20 mg/dL (4-19) H 10/09/24 05:15 10/09/24 Creatinine 0.98 mg/dL (0.70-1.20) 10/09/24 05:15 10/09/24 Glucose 132 mg/dL (70-99) H 10/09/24 05:15 10/09/24 POC Glucose 121 mg/dL (74-106) H 10/09/24 06:30 10/09/24 TSH 5.590 uIU/mL (0.358-3.740) H 03/08/24 05:15 COAG PT 22.2 SECONDS (11.7-14.9) H 10/09/24 05:15 09/30 Pre-Assessment Diagnosis/Proposed Procedure Planned Operative Procedure(s): EGD. 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 When Was Last Pacemaker Check QUESTION #4 FULL TEXT: You/Your Family Experience fever (hyperthermia) with Anesthesia Last Oral Intake Last Oral intake: Last Oral Intake NPO since 00:00 10/09/24 10:20 Meds taken in AM with sips of water? Meds patient instructed to take am of surgery PONV PONV - director of parks and recreation: PONV - director of parks and recreation Female HX of Motion Sickness HX of N/V After Surgery Non-Smoker Duration of Surgery greater than 60 minutes Number of Risk Factors PONV Score Height & Weight Height & Weight: Anesthesia: Height & Weight Height 5 ft 3 in 10/09/24 10:20 Weight: 68.4 kg 10/09/24 10:20 Body Mass Index (BMI) 26.6 10/09/24 10:20 Respiratory Assessment Respiratory Assessment - director of parks and recreation: Respiratory Tract Infection Hx - director of parks and recreation Hx Respiratory Tract Infection No 10/09/24 00:03 STOP Sleep Apnea STOP Sleep Apnea - director of parks and recreation: STOP Sleep Apnea - director of parks and recreation Hx Hypertension Yes 10/08/24 10:36 Hx Sleep Apnea No 10/08/24 01:19 CPAP No 10/08/24 01:19 BIPAP No 10/08/24 01:19 Do you snore loudly (louder Yes 10/08/24 01:19 than talking or can be heard Do you often feel tired/ Yes 10/08/24 01:19 fatigued/ sleepy during daytime? Has anyone observed you stop Yes 10/08/24 01:19 breathing during sleep? STOP Results Positive 10/08/24 01:19 QUESTION #5 FULL TEXT : Do you snore loudly (louder than talking or can be heard through closed doors)? 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 Specify any problems Hx of Preganancy in last 3 No 10/08/24 01:19 Months Nurse Filling Out Transfusion EYOUNG 10/08/24 01:19 & Questions: Date: 10/08/24 10/08/24 01:19 Time: 01:20 10/08/24 01:19 Patient unable to answer at this time (ie. confused, unrespo /Reproduction History /Reproductive History - director of parks and recreation: /Reproductive Hx- director of parks and recreation Hx Now No 10/09/24 00:03 Gestational Age (in weeks): EDC: Hx Hx Para Hx Section SAB No 10/09/24 00:03 Active Medications Active Medications: Current Medications Generic Name Dose Route Start Last Admin Trade Name Freq PRN Reason Stop Dose Admin Acetaminophen 650 mg 10/08/24 00:58 Acetaminophen 325 Mg Tablet PO Q4H PRN PRN Fever, pain 1-02/08 Al Hydroxide/Mg Hydroxide 30 ml 10/08/24 00:58 Mag Hydrox/Al Hydrox/Simeth 30 Ml Udc PO Q6H PRN PRN Gastric Burning Albuterol Sulfate 2.5 mg 10/08/24 00:58 Albuterol 2.5 Mg/3 Ml Vial.Neb. INHALATION Q2H PRN PRN Dyspnea, wheezing Amlodipine Besylate 10 mg 10/08/24 10:00 10/08/24 11:36 Amlodipine 10 Mg Tablet PO Not Given DAILY KAVYA Protocol Atorvastatin Calcium 40 mg 10/08/24 22:00 10/08/24 21:13 Atorvastatin Calcium 40 Mg Tablet PO 40 mg QHS KAVYA Administration Ferrous Sulfate 325 mg 10/08/24 12:00 10/08/24 11:36 Ferrous Sulfate 325 Mg Tablet PO Not Given DAILY@1200 [facility] Fluticasone Propionate 2 spray 10/08/24 03:58 Fluticasone 0.05% 1 [place] Nasal.Sry NASAL Q12H PRN PRN congestion Furosemide 40 mg 10/08/24 10:00 10/08/24 11:36 Furosemide 40 Mg Tablet PO Not Given DAILY [facility] Protocol Gabapentin 100 mg 10/08/24 08:00 10/08/24 17:01 Gabapentin 100 Mg Capsule PO 100 mg TIDCM KAVYA Administration Glucagon 1 mg 10/08/24 00:58 Glucagon 1 Mg/Ml Syringe IM X1 PRN HYPOGLYCEMIA Protocol Guaifenesin 20 ml 10/08/24 00:58 Guaifenesin 10 Ml Udc (200mg/10ml) PO Q4H PRN PRN COUGH Hydralazine HCl 10 mg 10/08/24 00:58 Hydralazine 20 Mg/Ml Vial IV Q4H PRN PRN SBP > 160 Protocol Pantoprazole Sodium 80 mg/ 100 mls @ 10 mls/hr 10/08/24 00:58 10/09/24 09:49 Sodium Chloride CONT INF 10 mls/hr Q10H KAVYA Administration Dextrose 250 mls @ 0 mls/hr 10/08/24 00:58 Dextrose 10%-Water IV .Q0M PRN HYPOGLYCEMIA Protocol As Directed Sodium Chloride 250 mls @ 15 mls/hr 10/08/24 00:59 IV .[id number] PRN Saline Flush Sodium Chloride 250 mls @ 15 mls/hr 10/08/24 00:59 IV .[id number] PRN Additional IVPB Infusion Sodium Chloride 500 mls @ 15 mls/hr 10/08/24 00:59 10/08/24 08:10 IV 0 mls/hr PRN PRN Infusion Blood Transfusion Lactated Ringer's 1,000 mls @ 15 mls/hr 10/09/24 10:30 IV .Q48H [facility] Insulin Human Lispro 0 unit 10/08/24 06:00 10/09/24 06:31 Insulin Lispro 100 Unit/Ml Insuln.Pen SC Not Given Q6 [facility] Protocol Losartan Potassium 100 mg 10/08/24 10:00 10/08/24 11:35 Losartan Potassium 100 Mg Tablet PO Not Given DAILY [facility] Protocol Melatonin 3 mg 10/08/24 00:58 Melatonin 3 Mg Tablet PO QHS PRN PRN INSOMNIA Metoprolol Succinate 25 mg 10/09/24 10:00 Metoprolol(Xl)Succ 25 Mg Tablet PO BID [facility] Protocol Nitroglycerin 0.4 mg 10/08/24 00:58 Nitroglycerin (Inpatient Use) 0.4 Mg Tab.Subl SL Q5M PRN CARDIAC/CHEST PAIN Ondansetron HCl 4 mg 10/08/24 00:58 Ondansetron 4 Mg/2 Ml Vial IV Q8H PRN PRN NAUSEA/VOMITING Potassium Chloride 20 meq 10/08/24 08:00 10/08/24 11:35 Potassium Chloride Oral Tablet [facility] Prochlorperazine Edisylate 5 mg 10/08/24 00:58 Prochlorperazine 10 Mg/2 Ml Vial IV Q4H PRN PRN Breakthrough Nausea/Vomiting Sertraline HCl 25 mg 10/08/24 10:00 10/08/24 11:36 Sertraline 50 Mg Tablet PO Not Given DAILY [facility] Sodium Chloride 10 - 40 ml 10/08/24 00:59 10/08/24 21:10 0.9% Saline Lock 10 Ml Syringe IV 10 ml UD PRN Administration SALINE FLUSH Tolterodine Tartrate 2 mg 10/08/24 10:00 10/08/24 11:36 Tolterodine Tartrate 2 Mg Cap.Sa PO Not Given DAILY [facility] Medical History TIA (transient ischemic attack) Wears glasses Depression Heartburn Non-smoker On home oxygen therapy Hypertension Gastric ulcer Dilated cardiomyopathy Prolonged QT interval Elevated blood pressure reading without diagnosis of hypertension Factor V Leiden Anxiety Hypokalemia Acute hypoxemic respiratory failure CHF (congestive heart failure) Home Medications ?Medication ?Instructions ?Recorded ?Last Taken ?Type oxybutynin chloride 10 mg 10 mg PO DAILY bladder 09/2208/22/24 History tablet,extended release 24 hr glimepiride 2 mg tablet 2 mg PO DAILY dm 12/31/23 Un known History ferrous sulfate 325 mg (65 mg 325 mg PO DAILY@1200 sup plement 30 02/03/24 Unk nown Rx iron) tablet (FeroSul) days #30 tabs warfarin 2 mg tablet 2 mg PO MOWEFR afib 03/07/24 Unknown History furosemide 40 mg tablet 40 mg PO DAILY water pill 30 days 03/19/24 01/27/24 Rx #60 tabs clopidogrel 75 mg tablet 75 mg PO DAILY 30 days #30 t abs 04/05/24 Unknown Rx pantoprazole 40 mg tablet,delayed 40 mg PO BID 30 days #60 tabs 04/05/24 Unknown Rx release simvastatin 80 mg tablet 80 mg PO QHS 06/20/24 Unknow n History metoprolol succinate 50 mg 50 mg PO BID #1 TAB 5 08/22/24 Rx tablet,extended release 24 hr magnesium chloride 64 mg 128 mg PO DAILY 08/17/24 Unk nown History (magnesium chloride) tablet,delayed release (Mag 64) warfarin 3 mg tablet 3 mg PO SUTUTHSA 08/17/24 Un known History losartan 100 mg tablet 100 mg PO QDAY #90 tabs 08/01 05/26 Unknown Rx potassium chloride 20 mEq 20 meq PO BID 08/20/24 Unkno wn History tablet,extended release amlodipine 10 mg tablet 10 mg PO .COMPLEX #90 tabs 0 09/04/24 Unknown Rx acetaminophen 500 mg capsule 500 mg PO QHS PRN pain Unknown History fluticasone propionate 50 2 spray intranasal Q12H PRN 10/07/24 Unknown History mcg/actuation nasal congestion spray,suspension gabapentin 100 mg capsule 100 mg PO TID 10/07/24 Unkno wn History tizanidine 2 mg tablet 2 mg PO Q8 PRN Muscle Spasm 10/07/24 Unknown History Allergy/AdvReac Type Severity Reaction Status Date / Time benazepril (From Lotensin) Allergy Mild DOESNT Verified 10/07/24 21:21 REMEMBER quinapril (From Accupril) Allergy Mild UNKNOWN Verified 10/07/24 21:21 Sulfa (Sulfonamide Allergy Mild Hives Verified 10/07/24 21:21 Antibiotics) verapamil (From Calan) Allergy Mild UNKNOWN Verified 10/07/24 21:21 Family History Mother Diabetes Father Diabetes CVA (cerebral vascular accident) Heart disease Hypertension Myocardial infarction CAD (coronary artery disease) Brother Myocardial infarction Hypertension Heart disease CAD (coronary artery disease) Sister NAFLD (nonalcoholic fatty liver disease) Other Asthma COPD (chronic obstructive pulmonary disease) Surgical History Hx of amputation History of transmetatarsal amputation of right foot History of femoropopliteal bypass S/P carotid endarterectomy Social History household members: spouse Smoking Status: Never smoker alcohol intake: never substance use type: does not use Review of Systems (Anesthesia) ROS Narrative System reviewed and no additional complaints, except as documented.
[2024-10-09] MEDS: Lactated Ringers 1,000 ML 15 ML IV (10:23)
--- NOTE | 2024-10-09 11:30 | PCM.PN.BLA ---
Progress Note Patient has been n.p.o. for upper endoscopy regarding acute blood loss anemia. Physical Exam Const alert and no apparent distress HEENT head/scalp atraumatic and moist oral mucous membranes Resp normal respiratory effort, no retractions, no use of accessory muscles and clear to auscultation bilaterally Cardio regular rate, regular rhythm, S1 normal heart sound and S2 normal heart sound GI normal to inspection, nondistended, normoactive bowel sounds, soft to palpation, non-tender and non-distended Neuro Sensorium / Orientation: awake and alert Psych affect normal Assessment & Plan Assessment/Plan (1) Gastric ulcer: PLAN: Assessment and Plan Assessment and Plan (1) GERD (gastroesophageal reflux disease): Status: Acute (2) Gastric ulcer: Status: Acute Plan: This is an 83 yo female pt here today for f/birch after hospitalization for toe amputation. Pt was found to have a gastric ulcer after undergoing EGD for down trending hemoglobin. She will undergo repeat EGD to assess for healing of the gastric ulcer. -EGD Visit Charges Inpatient E&M: 56758 Subs Hosp L3
--- NOTE | 2024-10-09 12:03 | PCM.POST.ANE ---
Anesthesia: Postop Eval I Current Vital Signs Temperature: 98.2 F Pulse Rate: 66 Blood Pressure: 109/57 Respiratory Rate: 16 Pulse Ox: 96 Oxygen Delivery Method: Nasal Cannula Oxygen Flow Rate (L/min): 2 Assessment Airway patent: Yes Spontaneous unlabored respirations: Yes Mental status: Awake and Calm nausea: No Vomiting: No Anesthesia Complication: No Fluid Hydration Crystalloid volume administer (ml): 200 Total IV fluid infused: 200 Progress Note Anesthesia document: Postop Eval 1 completed: Yes
--- NOTE | 2024-10-09 12:11 | OP.EGD_ITS ---
Patient Name: Eri Braun Procedure Date: 10/09/2024 11:01 AM Date of : 1940 Age: 83 Procedure: Upper GI endoscopy Indications: Iron deficiency anemia, Unexplained iron deficiency anemia, Melena Providers: Robb Giron DO Medicines: Monitored Anesthesia Care Patient Profile: This is an 83 year old female. Refer to note in patient chart for documentation of history and physical. Patient has symptoms of acute nausea. Her most recent EGD for treatment of bleeding. Complications: No immediate complications. Procedure: Pre-Anesthesia Assessment: - Prior to the procedure, a History and Physical was performed, and patient medications and allergies were reviewed. The patient is competent. The risks and benefits of the procedure and the sedation options and risks were discussed with the patient. All questions were answered and informed consent was obtained. Patient identification and proposed procedure were verified by the physician in the pre-procedure area. Mental Status Examination: alert and oriented. Airway Examination: normal oropharyngeal airway and neck mobility. Respiratory Examination: clear to auscultation. CV Examination: normal. Prophylactic Antibiotics: The patient does not require prophylactic antibiotics. Prior Anticoagulants: The patient has taken no anticoagulant or antiplatelet agents except for NSAID medication. ASA Grade Assessment: II - A patient with mild systemic disease. After reviewing the risks and benefits, the patient was deemed in satisfactory condition to undergo the procedure. The anesthesia plan was to use monitored anesthesia care (MAC). Immediately prior to administration of medications, the patient was re-assessed for adequacy to receive sedatives. The heart rate, respiratory rate, oxygen saturations, blood pressure, adequacy of pulmonary ventilation, and response to care were monitored throughout the procedure. The physical status of the patient was re-assessed after the procedure. After obtaining informed consent, the endoscope was passed under direct vision. Throughout the procedure, the patient's blood pressure, pulse, and oxygen saturations were monitored continuously. The Endoscope was introduced through the mouth, and advanced to the fourth part of the duodenum. Small bowel enteroscopy was deemed necessary. Scope In: 11:50:00 AM Scope Out: 11:55:17 AM Total Procedure Duration Time 0 hours 5 minutes 17 seconds Findings: The examined esophagus was normal. Two 5 mm angiodysplastic lesions with bleeding were found in the cardia and in the gastric fundus. The exam of the duodenum was otherwise normal. Impression: - Normal esophagus. - Two bleeding angiodysplastic lesions in the stomach. - No specimens collected. Recommendation: - Return patient to [facility] for ongoing care. - Advance diet as tolerated. - Continue present medications. Procedure Code(s): --- Professional --- 67889, Small intestinal endoscopy, enteroscopy beyond second portion of duodenum, not including ileum; diagnostic, including collection of specimen(s) by brushing or washing, when performed (separate procedure) CPT copyright 2021 [employer]. All rights reserved. The codes documented in this report are preliminary and upon manager adobe review may be revised to meet current compliance requirements. Robb Giron DO 10/09/2024 12:11:26 PM This report has been signed electronically. Number of Addenda: 1 Note Initiated On: 10/09/2024 11:01 AM Addendum Number: 1 Addendum Date: 10/10/2024 2:56:02 PM A gold probe was used to treat the angiodysplastic lesions seen on her upper endoscopy. Robb Giron DO 10/10/2024 2:56:29 PM This report has been signed electronically.
--- NOTE | 2024-10-09 12:12 | OP.CCLET_ITS ---
10/10/2024 Kendra Lucio [address] [place] [address] Re : Upper GI endoscopy procedure for Eri Kade Dear Dr. Lucio This procedure was performed on Wednesday, October 09, 2024. My impressions and recommendations are as follows: Impressions : - Normal esophagus. - Two bleeding angiodysplastic lesions in the stomach. - No specimens collected. Recommendations : - Return patient to [facility] for ongoing care. - Advance diet as tolerated. - Continue present medications. My findings are described in the full procedure note, which is enclosed. If I can be of further assistance, please feel free to contact me at . Sincerely, Robb Giron, 10/09/2024 12:11:26 PM This report has been signed electronically.
[2024-10-09] MEDS: Metoprolol(XL)Succ 25 MG Tablet PO ×2 (12:50→22:48)
[2024-10-09] MEDS: Sertraline 50 MG Tablet 25 MG PO (12:51)
[2024-10-09] MEDS: Potassium Chloride Oral Tablet 20 MEQ PO (12:52)
[2024-10-09] MEDS: amLODIPine 10 MG Tablet PO (12:52)
[2024-10-09] MEDS: Losartan Potassium 100 MG Tablet PO (12:52)
[2024-10-09] MEDS: Furosemide 40 MG Tablet PO (12:53)
[2024-10-09] MEDS: Tolterodine Tartrate 2 MG CAP.SA PO (12:53)
--- NOTE | 2024-10-09 12:55 | PCM.POSTANE2 ---
Anesthesia Postop Eval I Sum Postop Eval Completion status Anesthesia document: Postop Eval 1 completed: Yes Anesthesia Postop Eval I Summary Anesthesia Postop Eval I Summary: Anesthesia Postop Eval I: Assessment Summary Airway patent Yes 10/09/24 12:04 [email or web address] Spontaneous unlabored Yes 10/09/24 12:04 BAREBACK [email or web address] respirations Mental status Awake,Calm 10/09/24 12:04 BAREBACK [email or web address].[email or web address] nausea No 10/09/24 12:04 BAREBACK [email or web address].JACINTO Vomiting No 10/09/24 12:04 BAREBACK [email or web address].JACINTO Anesthesia Postop Eval I: Fluid Summary Crystalloid volume administer 200 10/09/24 12:04 BAREBACK [email or web address].[email or web address] (ml) Colloids volume administered ( ml) Blood Product volume administered (ml) Total IV fluid infused 200 10/09/24 12:04 BAREBACK [email or web address].JACINTO Anesthesia Postop Eval I: Summary Notes Anesthesia Complication No 10/09/24 12:04 BAREBACK [email or web address] Anesthesia Complication Comment: Post-operative progress note Anesthesia: Postop Eval II Evaluation Mental status: Awake Pain Level: 0 nausea: No Vomiting: No
--- NOTE | 2024-10-09 12:55 | POSTOPAN2_ITS ---
Anesthesia Postop Eval I Sum Postop Eval Completion status Anesthesia document: Postop Eval 1 completed: Yes Anesthesia Postop Eval I Summary Anesthesia Postop Eval I Summary: Anesthesia Postop Eval I: Assessment Summary Airway patent Yes 10/09/24 12:04 BATHHOUSE [email or web address] Spontaneous unlabored Yes 10/09/24 12:04 BATHHOUSE [email or web address] respirations Mental status Awake,Calm 10/09/24 12:04 BATHHOUSE [email or web address].JACINTO nausea No 10/09/24 12:04 BATHHOUSE KEEPER.JACINTO Vomiting No 10/09/24 12:04 BATHHOUSE [email or web address].JACINTO Anesthesia Postop Eval I: Fluid Summary Crystalloid volume administer 200 10/09/24 12:04 BATHHOUSE [email or web address].[email or web address] (ml) Colloids volume administered ( ml) Blood Product volume administered (ml) Total IV fluid infused 200 10/09/24 12:04 BATHHOUSE [email or web address].JACINTO Anesthesia Postop Eval I: Summary Notes Anesthesia Complication No 10/09/24 12:04 BATHHOUSE [email or web address].[email or web address] Anesthesia Complication Comment: Post-operative progress note Anesthesia: Postop Eval II Evaluation Mental status: Awake Pain Level: 0 nausea: No Vomiting: No
[2024-10-09] MEDS: Gabapentin 100 MG Capsule PO ×2 (12:57→17:30)
[2024-10-09 14:35] LABS: Bedside Glucose 123 mg/dL (74-106)
[2024-10-09] MEDS: Ferrous Sulfate 325 MG Tablet PO (17:30)
[2024-10-09 18:15] LABS: Bedside Glucose 132 mg/dL (74-106)
[2024-10-09] MEDS: Atorvastatin Calcium 40 MG Tablet PO (22:47)
[2024-10-09] MEDS: 0.9% Saline Lock 10 ML Syringe IV (22:49)
[2024-10-09] MEDS: Pantoprazole Sodium 40 MG in 0.9% Normal Saline (100mL MB+) 100 ML 330 MG IV (22:56)
[2024-10-10] VITALS (9 sets, daily range): BP systolic 119–134; BP diastolic 49–69; PULSE 61–71; RESP 16; TEMP 36.2–37.5; O2SAT 92–99; BMI 26.8
[2024-10-10 00:09] LABS: Bedside Glucose 133 mg/dL (74-106)
[2024-10-10] MEDS: 0.9% Saline Lock 10 ML Syringe IV ×2 (00:41→09:58)
[2024-10-10 06:14] LABS: Absolute Lymphocyte Count 0.72 X10^3/uL (0.83-4.51); Absolute Neutrophil Count 4.6 X10^3/uL (2.0-7.7); Basophil# 0.02 X10^3/uL; Basophil% 0.3 % (0-1); Eosinophil# 0.08 X10^3/uL; Eosinophils% 1.3 % (0-5); Hematocrit 24.1 % (37-47); Hemoglobin 7.8 g/dL (12.0-15.0); Lymphocyte # 0.72 X10^3/ul (0.83-4.51); Mean Corp Hgb Conc 32.4 g/dL (32-36); Mean Corpuscular Hgb 30.7 pg (27.0-32.0); Mean Corpuscular Volume 94.9 fL (81-99); Mean Platelet Vol. 10.2 fl (6.2-12.0); Monocyte# 0.58 X10^3/uL; Monocyte% 9.6 % (0-10); NRBC Flagged by Analyzer 0.3 % (0-5); Neutrophil % 76.5 % (47-70); POSITIVE MORPHOLOGY YES; Platelet Count 206 K/mm3 (150-450); RBC Distribution Width CV 21.8 % (11.6-14.6); RBC Distribution Width SD 75.9 fl (35.1-43.9); Red Blood Count 2.54 M/mm3 (4.2-5.4)
[2024-10-10 06:16] LABS: Differential Indicated SCAN CRITERIA MET
[2024-10-10 06:43] LABS: Anion Gap 11 (5-15); BUN 14 mg/dL (4-19); BUN/Creat Ratio 15.4 RATIO (10-20); Calcium,Total 8.9 mg/dL (7.6-11.0); Carbon Dioxide 22.2 mmol/L (21.0-32.0); Chloride 106 mmol/L (98-108); Creatinine, Serum 0.93 mg/dL (0.70-1.20); EST Glomerular Filtration Rate 60 (>60); Estimated Creatinine Clearance 41.88 ml/min (50-250); Glucose 129 mg/dL (70-99); Potassium 3.5 mmol/L (3.3-5.1); Sodium Level 139 mmol/L (133-145)
[2024-10-10 06:55] LABS: Acanthocytes RARE; Anisocytosis 2+; Basophilic Stippling 1+; Differential Comment SCANNED; Ovalocyte 1+; Platelet Morphology ADEQ; Polychromasia 1+
[2024-10-10 07:13] LABS: Bedside Glucose 129 mg/dL (74-106)
[2024-10-10] MEDS: Tolterodine Tartrate 2 MG CAP.SA PO (07:59)
[2024-10-10] MEDS: Metoprolol(XL)Succ 25 MG Tablet PO (07:59)
[2024-10-10] MEDS: amLODIPine 10 MG Tablet PO (07:59)
[2024-10-10] MEDS: Potassium Chloride Oral Tablet 20 MEQ PO ×2 (07:59→08:00)
[2024-10-10] MEDS: Gabapentin 100 MG Capsule PO ×2 (07:59→11:27)
[2024-10-10] MEDS: Losartan Potassium 100 MG Tablet PO (08:00)
[2024-10-10] MEDS: Sertraline 50 MG Tablet 25 MG PO (08:00)
[2024-10-10] MEDS: Furosemide 40 MG Tablet PO (08:00)
--- NOTE | 2024-10-10 08:08 | PN.HOSP_ITS ---
Reason for Visit Reason for Visit: Diagnoses Acute posthemorrhagic anemia (10/07/24) Activated protein C resistance (10/07/24) Essential (primary) hypertension (10/07/24) Nonrheumatic aortic (valve) stenosis (10/07/24) Paroxysmal atrial fibrillation (10/07/24) Unspecified systolic (congestive) heart failure (10/07/24) Chronic diastolic (congestive) heart failure (10/07/24) Gastric ulcer, unspecified as acute or chronic, without hemorrhage or perforation (10/07/24) Melena (10/07/24) Gastrointestinal hemorrhage, unspecified (10/07/24) Chest pain, unspecified (10/07/24) Subjective Subjective Feeling well. No events overnight. Objective Data Objective Data Vital Signs: Vital Signs Temp Pulse Resp BP Pulse Ox O2 Del Method O2 Flow Rate 36.2 C L 62 16 119/58 L 96 Nasal Cannula 2 10/10/24 04:43 10/10/24 07:59 10/10/24 04:43 10/10/24 04:43 10/10/24 04:43 10/10/24 04:45 10/10/24 04:45 Oxygen Flow Rate (L/min) 2 Oxygen Delivery Method Nasal Cannula Weight: 68.7 kg Body Mass Index (BMI) 26.8 Intake & Output: Intake and Output for Last 24 Hours 10/08/24 10/09/24 10/10/24 23:59 23:59 23:59 Intake Total 1487.58 / 1487.58 685.42 / 805.42 120 / 120 Output Total 1475 / 1475 Balance 12.58 / 12.58 685.42 / 805.42 120 / 120 Lab / Micro Data 10/10/24 05:27 10/10/24 05:27 Labs: Laboratory Results - last 24 hr 10/09/24 12:59: POC Glucose 123 H 10/09/24 17:21: POC Glucose 132 H 10/09/24 23:02: POC Glucose 133 H 10/10/24 05:27: WBC 6.0, RBC 2.54 L, Hgb 7.8 L, Hct 24.1 L, MCV 94.9, MCH 30.7, MCHC 32.4, RDW Std Deviation 75.9 H, RDW Coeff of Kate 21.8 H, Plt Count 206, MPV 10.2, Immature Gran % (Auto) 0.300, Neut % (Auto) 76.5 H, Lymph % (Auto) 12.0 L, [place] % (Auto) 9.6, Eos % (Auto) 1.3, Baso % (Auto) 0.3, Absolute Neuts (auto) 4.6, Absolute Lymphs (auto) 0.72 L, Nucleated RBC % 0.3, Differential Comment SCANNED, Plt Morphology Comment ADEQ, Polychromasia 1+, Basophilic Stippling 1+, Anisocytosis 2+, Ovalocytes 1+, Acanthocytes (Spur) RARE, Sodium 139, Potassium 3.5, Chloride 106, Carbon Dioxide 22.2, Anion Gap 11, BUN 14, Creatinine 0.93, E stim Creat Clear Calc 41.88 L, Est GFR (MDRD) Non-Af 60, BUN/Creatinine Ratio 15.4, Glucose 129 H, Calcium 8.9 10/10/24 05:58: POC Glucose 129 H Micro: Microbiology 10/07/24 22:53 Stool Stool Occult Blood (LATANYA) - Final Occult Blood Positive Rhythm Strip Rhythm Strip: Sinus Rhythm Rate: 55 Ectopy: PVC(s) Physical Exam Const alert and no apparent distress Constitutional Narrative: up in chair. Neuro oriented x3 and CN's II-XII intact bilaterally Sensorium / Orientation: awake and alert Assessment & Plan Assessment/Plan (1) ABLA (acute blood loss anemia): PLAN: Hg down to 6.5, now up to 8 and has remained stable. Continue to monitor. 2/2 GI complicated by anticoagulation Warfarin held. (2) GI bleed: QUALIFIERS: GI bleed type/associated pathology: melena Qualified Code(s): K92.1 - Melena PLAN: EGD on 10/09 showed 2 bleeding angiodysplastic lesions in the stomach. on pantoprazole gtt, since no PUD, will change to boluses. PLAN: Plan Chronic conditions: * HFpEF: on furosemide, furosemide, losartan * CAD: clopidogrel held given GIB * pAfib: warfarin held given GIB. Resume in 4 days. VTE prophylaxis: SCDs. DC home
[2024-10-10] MEDS: Pantoprazole Sodium 40 MG in 0.9% Normal Saline (100mL MB+) 100 ML 330 MG IV (09:57)
[2024-10-10] MEDS: Ferrous Sulfate 325 MG Tablet PO (11:27)
[2024-10-10 11:33] LABS: Bedside Glucose 126 mg/dL (74-106)
--- NOTE | 2024-10-10 15:28 | DS.PCM_ITS ---
Providers Date of Admission: 10/07/24 Primary Care Physician: Dr. Kendra Lucio MD Consultations 10/08/24 00:58 Consult: Gastroenterology Routine Consulting Provider: [facility] Reason for Consult: ABLA, GI bleed EMERGENT Consult: No MD Notified: Yes Date Notified: 10/07/24 Time Notified: 23:49 Method of Notification: Text Reason For Visit: GI BLEED, ABLA, CHEST PAIN/?HF EXAC Diagnosis Discharge Diagnosis (1) ABLA (acute blood loss anemia): Status: Acute Code(s): D62 - Acute posthemorrhagic anemia Plan: Hg down to 6.5, now up to 8 and has remained stable. Continue to monitor. 2/2 GI complicated by anticoagulation Warfarin held. (2) GI bleed: Status: Acute Code(s): K92.2 - Gastrointestinal hemorrhage, unspecified Qualifiers: GI bleed type/associated pathology: melena Qualified Code(s): K92.1 - Melena Plan: EGD on 10/09 showed 2 bleeding angiodysplastic lesions in the stomach. on pantoprazole gtt, since no PUD, will change to boluses. Plan Chronic conditions: * HFpEF: on furosemide, furosemide, losartan * CAD: clopidogrel held given GIB * pAfib: warfarin held given GIB. Resume in 4 days. VTE prophylaxis: SCDs. DC home Medications at Discharge Home Medications oxybutynin chloride 10 mg tablet,extended release 24 hr 10 mg PO DAILY bladder 09/23/23 glimepiride 2 mg tablet 2 mg PO DAILY dm 12/31/23 ferrous sulfate 325 mg (65 mg iron) tablet (FeroSul) 325 mg PO DAILY@1200 supplement 30 days #30 tabs 02/03/24 warfarin 2 mg tablet 2 mg PO MOWEFR afib 03/07/24 Held on 10/10/24. Instructions: Resume on 10/15/24. furosemide 40 mg tablet 40 mg PO DAILY water pill 30 days #60 tabs 03/19/24 clopidogrel 75 mg tablet 75 mg PO DAILY 30 days #30 tabs 04/05/24 Held on 10/10/24. Instructions: Resume on 10/14/24. pantoprazole 40 mg tablet,delayed release 40 mg PO BID 30 days #60 tabs 04/05/24 simvastatin 80 mg tablet 80 mg PO QHS 06/20/24 magnesium chloride 64 mg (magnesium chloride) tablet,delayed release (Mag 64) 128 mg PO DAILY 08/17/24 warfarin 3 mg tablet 3 mg PO SUTUTHSA 08/17/24 Held on 10/10/24. Instructions: Resume on 10/14/24. losartan 100 mg tablet 100 mg PO QDAY #90 tabs 08/20/24 potassium chloride 20 mEq tablet,extended release 20 meq PO BID 08/20/24 amlodipine 10 mg tablet 10 mg PO .COMPLEX #90 tabs 09/04/24 acetaminophen 500 mg capsule 500 mg PO QHS PRN pain 10/07/24 fluticasone propionate 50 mcg/actuation nasal spray,suspension 2 spray intranasal Q12H PRN congestion 10/07/24 gabapentin 100 mg capsule 100 mg PO TID 10/07/24 tizanidine 2 mg tablet 2 mg PO Q8 PRN Muscle Spasm 10/07/24 metoprolol succinate 25 mg tablet,extended release 24 hr 25 mg PO BID #60 tabs 10/10/24 sertraline 50 mg tablet 25 mg (1/2 x 50 mg) PO DAILY #0 tabs 10/10/24 Hospital Course Operations None Procedures EGD Summary of Care Provided Minutes Spent on Discharge: 32 Hospital Course: This is an 83-year-old female presents with shortness of breath and dark stools. Patient is on warfarin at home and her admission INR was 2.7. Patient was started on pantoprazole drip. Patient underwent EGD on the that showed 2 bleeding angiodysplastic lesions in the stomach. Patient remained stable and hemoglobin remained stable subsequent thereafter. Patient is on warfarin chronically for paroxysmal atrial fibrillation. Patient will need to hold off on her warfarin for the next 4 days. Patient will need to have follow-up lab work to ensure stability of her hemoglobin. As well as routine INR checks. Weight / BMI Weight Weight: 68.7 kg Body Mass Index (BMI) 26.8 ABG / Lab / Microbiology Data 10/10/24 05:27 10/10/24 05:27 Laboratory: Laboratory Results - last 24 hr 10/09/24 17:21: POC Glucose 132 H 10/09/24 23:02: POC Glucose 133 H 10/10/24 05:27: WBC 6.0, RBC 2.54 L, Hgb 7.8 L, Hct 24.1 L, MCV 94.9, MCH 30.7, MCHC 32.4, RDW Std Deviation 75.9 H, RDW Coeff of Kate 21.8 H, Plt Count 206, MPV 10.2, Immature Gran % (Auto) 0.300, Neut % (Auto) 76.5 H, Lymph % (Auto) 12.0 L, [place] % (Auto) 9.6, Eos % (Auto) 1.3, Baso % (Auto) 0.3, Absolute Neuts (auto) 4.6, Absolute Lymphs (auto) 0.72 L, Nucleated RBC % 0.3, Differential Comment SCANNED, Plt Morphology Comment ADEQ, Polychromasia 1+, Basophilic Stippling 1+, Anisocytosis 2+, Ovalocytes 1+, Acanthocytes (Spur) RARE, Sodium 139, Potassium 3.5, Chloride 106, Carbon Dioxide 22.2, Anion Gap 11, BUN 14, Creatinine 0.93, E stim Creat Clear Calc 41.88 L, Est GFR (MDRD) Non-Af 60, BUN/Creatinine Ratio 15.4, Glucose 129 H, Calcium 8.9 10/10/24 05:58: POC Glucose 129 H 10/10/24 11:14: POC Glucose 126 H Microbiology: Microbiology 10/07/24 22:53 Stool Stool Occult Blood (LATANYA) - Final Occult Blood Positive D/C Instructions Discharge Diet: No restrictions DC O2, CPAP, BIPAP Needs Home O2 Discharge instructions: No Meaningful Use Info Meaningful Use Meaningful Use Diagnoses (Choose all that apply): None applicable Ischemic Stroke Statin Dosing Therapy Reference: STATIN DOSE THERAPY REFERENCE: * Patients > 75 years receive moderate or high dose statin therapy. * Patients 75 years or YOUNGER should receive HIGH intensity statin dose unless contraindicated. You will be required to document reason for non-treatment if statin daily dose does not meet guidelines. HIGH DOSE STATIN THERAPY DAILY Atorvastatin > than or = to 40 mg Rosuvastatin > than or = to 20 mg Amlodipine + Atorvastatin > than or = to 2.5/40 mg Ezetimibe + Simvastatin 10/80 mg Simvastatin 80mg Discharge Plan Admission Admit Date/Time: 10/07/24 23:42 Primary Reason for Your Visit: GI bleed Attending Provider: Shaan Monae Primary Care Provider: Kendra Lucio Consulting Providers: Roly Herrera; Kelsie Muñoz Instructions Additional Instructions / Restrictions: You had a ceftezole bleed due to some abnormal blood vessels in your stomach complicated by being on warfarin. Your blood count has remained stable after the transfusions. You hold off on your warfarin for the next 4 days. You will need follow-up your primary care provider to follow-up in regards to your hemoglobin checks as well as a routine INR checks. Please contact your physician if you have recurrent bleeding. Discharge Orders/Prescriptions Prescriptions: New metoprolol succinate 25 mg Tablet Extended Release 24 Hr 25 mg PO BID Qty: 60 0RF sertraline 50 mg Tablet 25 mg PO DAILY Qty: 0 0RF Continued simvastatin 80 mg tablet 80 mg PO QHS ferrous sulfate [FeroSul] 325 mg (65 mg iron) Tablet 325 mg PO DAILY@1200 30 Days Qty: 30 0RF Patient Comments: pt states she takes at bedtime pantoprazole 40 mg Tablet,Delayed Release (Dr/Ec) 40 mg PO BID 30 Days Qty: 60 0RF fluticasone propionate 50 mcg/actuation spray,suspension 2 spray INTRANASAL Q12H PRN (Reason: congestion) acetaminophen 500 mg capsule 500 mg PO QHS PRN (Reason: pain) tizanidine 2 mg Tablet 2 mg PO Q8 PRN (Reason: Muscle Spasm) gabapentin 100 mg capsule 100 mg PO TID oxybutynin chloride 10 mg tablet extended release 24hr 10 mg PO DAILY glimepiride 2 mg tablet 2 mg PO DAILY furosemide 40 mg Tablet 40 mg PO DAILY 30 Days Qty: 60 2RF magnesium chloride [Mag 64] 64 mg tablet,delayed release (DR/EC) 128 mg PO DAILY potassium chloride 20 mEq tablet extended release 20 meq PO BID losartan 100 mg tablet 100 mg PO QDAY Qty: 90 3RF amlodipine 10 mg tablet 10 mg PO .COMPLEX Qty: 90 3RF Rx Instructions: 10 mg orally DAILY: this is a dose increase, pt was using up her 5mg tablets to = 10 mg. Pt is out of med and is in store now. PLEASE FILL, thank you!!; Held clopidogrel 75 mg Tablet 75 mg PO DAILY 30 Days Qty: 30 0RF Hold Instructions: Resume on 10/14/24. warfarin 2 mg tablet 2 mg PO MOWEFR Hold Instructions: Resume on 10/15/24. warfarin 3 mg tablet 3 mg PO SUTUTHSA Hold Instructions: Resume on 10/14/24. Discontinued metoprolol succinate 50 mg tablet extended release 24 hr 50 mg PO BID Qty: 1 0RF Referrals / Follow Up: Kendra Lucio MD [Primary Care Provider] - Within 2 Weeks Disposition Disposition (needs filled in before D/C Order can be placed): Home, Self Care Charges/Coding Visit Charges Inpatient E&M: 13078 Disch Hosp >30min
--- NOTE | 2024-10-10 16:18 | CASEMGMT ---
[facility] CM reviewed DC summary and Home O2 testing. No increases in oxygen needs at this time.
== END 2024-10-10 18:34 | disposition home or self-care (01) | DRG 378 ==
LOC: ED 23:34 → PCU 10-08 04:22
PROVIDERS: Anesthesiology; Internal Medicine Gastroenterology; Admitting Provider Family Medicine; Emergency Provider Emergency Medicine; PCP Internal Medicine
PROC: 0DJ08ZZ Inspection of Upper Intestinal Tract, Via Natural or Artificial Opening Endoscopic (ICD-10-PCS; CPT 43235; principal; 2024-10-09 10:55)
DX: K31.811 Angiodysplasia of stomach and duodenum with bleeding (principal); D68.32 Hemorrhagic disorder due to extrinsic circulating anticoagulants; D62 Acute posthemorrhagic anemia; I42.0 Dilated cardiomyopathy; D68.51 Activated protein C resistance; I13.0 Hypertensive heart and chronic kidney disease with heart failure and stage 1 through stage 4 chronic kidney disease, or unspecified chronic kidney disease; I50.32 Chronic diastolic (congestive) heart failure; E11.22 Type 2 diabetes mellitus with diabetic chronic kidney disease; N18.30 Chronic kidney disease, stage 3 unspecified; F32.A Depression, unspecified; Z95.2 Presence of prosthetic heart valve; I48.0 Paroxysmal atrial fibrillation; Z89.431 Acquired absence of right foot; E11.40 Type 2 diabetes mellitus with diabetic neuropathy, unspecified; E11.51 Type 2 diabetes mellitus with diabetic peripheral angiopathy without gangrene; Z79.4 Long term (current) use of insulin; E78.5 Hyperlipidemia, unspecified; I25.10 Atherosclerotic heart disease of native coronary artery without angina pectoris; K21.9 Gastro-esophageal reflux disease without esophagitis; F41.9 Anxiety disorder, unspecified; R07.89 Other chest pain; Z99.81 Dependence on supplemental oxygen; Z79.01 Long term (current) use of anticoagulants; Z79.02 Long term (current) use of antithrombotics/antiplatelets; Z79.84 Long term (current) use of oral hypoglycemic drugs; Z79.899 Other long term (current) drug therapy; Z86.73 Personal history of transient ischemic attack (TIA), and cerebral infarction without residual deficits
CPT/HCPCS: 36415; 71046; 80048; 80053; 80061; 82274; 82962; 83735; 83880; 84484; 85025; 85610; 85730; 86850; 86900; 86901; 93005; 94640; 94668; 97162; 97165; 97530; 99285; C1889; P9016; P9017; A4216; J1938

== ENCOUNTER 2025-01-22 09:22 | Inpatient (IN) | payer MEDICARE, SELFPAY ==
--- NOTE | 2025-01-07 14:23 | PAT.ANESEVAL ---
Pre-Assessment Diagnosis/Proposed Procedure Planned Operative Procedure(s): (L) Carotidstent, Software Architect, OR Staff, SIERRA, Shawn. Anesthesia History Anesthesia History - director of email marketing: Anesthesia History - director of email marketing Hx Hospitalization Yes: GI BLEED 10-2401/07/25 09:22 Any Problems With Anesthesia No 01/07/25 09:22 Cholinesterase deficiency No 01/07/25 09:22 You/Your Family Experience No 01/07/25 09:22 fever (hyperthermia) with Relationship Recent Exposure to Contagious No 10/09/24 00:03 Disease Does patient have nerve No 01/07/25 09:22 stimulator Patient instructed to have device shut off --Does patient have Pacemaker or ICD? When Was Last Pacemaker Check QUESTION #4 FULL TEXT: You/Your Family Experience fever (hyperthermia) with Anesthesia Last Oral Intake Last Oral intake: Last Oral Intake NPO since Meds taken in AM with sips of water? Meds patient instructed to take am of surgery PONV PONV - director of email marketing: PONV - director of email marketing Female Yes 01/07/25 09:22 HX of Motion Sickness No 01/07/25 09:22 HX of N/V After Surgery No 01/07/25 09:22 Non-Smoker Yes 01/07/25 09:22 Duration of Surgery greater Yes 01/07/25 09:22 than 60 minutes Number of Risk Factors 3 01/07/25 09:22 PONV Score Moderate Risk 01/07/25 09:22 Height & Weight Height & Weight: Anesthesia: Height & Weight Height 5 ft 3 in 10/09/24 10:20 Respiratory Assessment Respiratory Assessment - director of email marketing: Respiratory Tract Infection Hx - director of email marketing Hx Respiratory Tract Infection No 01/07/25 09:22 STOP Sleep Apnea STOP Sleep Apnea - director of email marketing: STOP Sleep Apnea - director of email marketing Hx Hypertension Yes 01/07/25 09:22 Hx Sleep Apnea Yes: USES O2 NC 3L AT HS 01/07/25 09:22 CPAP No 01/07/25 09:22 BIPAP No 01/07/25 09:22 Do you snore loudly (louder than talking or can be heard Do you often feel tired/ fatigued/ sleepy during daytime? Has anyone observed you stop breathing during sleep? STOP Results Positive 01/07/25 09:22 QUESTION #5 FULL TEXT : Do you snore loudly (louder than talking or can be heard through closed doors)? Tobacco Use History Tobacco Use History - director of email marketing: Tobacco Use History - director of email marketing Tobacco Use Smoking Status Never smoker 01/07/25 09:22 Hx Tobacco Use No 01/07/25 09:22 Years Smoking Packs Smoked per Day Smoking Cessation Date was within the last 15 years Hx Smoking Cessation Date Hx Smoking Cessation Counseling Hematologic Medial History Hematologic Hx - director of email marketing: Hematologic Medical Hx - documentation manager Hx of Blood Transfusion Yes 01/07/25 09:22 Hx of Transfusion in last 3 Yes 01/07/25 09:22 Months Date of Last Transfusion (if 10-2401/07/25 09:22 within last 3 months) Ever experience any problems No 01/07/25 09:22 with transfusion(s)? Specify any problems Hx of Preganancy in last 3 No 01/07/25 09:22 Months Nurse Filling Out Transfusion JZOLLLASHAY 01/07/25 09:22 & Questions: Date: 01/07/25 01/07/25 09:22 Time: 01/07/25 09:22 Patient unable to answer at this time (ie. confused, unrespo /Reproduction History /Reproductive History - director of email marketing: /Reproductive Hx- director of email marketing Hx Now No 01/07/25 09:22 Gestational Age (in weeks): EDC: Hx Hx Para Hx Section SAB No 01/07/25 09:22 [facility] Medical History (Updated 01/07/25 @ 09:22 by Cherelle Mendez) Wears hearing aid in both ears Diabetes Sleep apnea Hx of cardiovascular stress test Hx of echocardiogram Cardiology follow-up encounter Preop cardiovascular exam (HFpEF) heart failure with preserved ejection fraction Pleural effusion, left TIA (transient ischemic attack) Wears glasses Depression Heartburn Non-smoker On home oxygen therapy Hypertension Gastric ulcer Aortic valve stenosis Atrial fibrillation Dilated cardiomyopathy Prolonged QT interval Elevated blood pressure reading without diagnosis of hypertension Factor V Leiden Anxiety Hypokalemia Acute hypoxemic respiratory failure CHF (congestive heart failure) Home Medications ?Medication ?Instructions ?Recorded ?Last Taken ?Type oxybutynin chloride 10 mg 10 mg PO DAILY bladder 09/23/23 08/22/24 History tablet,extended release 24 hr glimepiride 2 mg tablet 2 mg PO DAILY dm 12/31/23 Unknown History ferrous sulfate 325 mg (65 mg 325 mg PO DAILY@1200 supplement 30 02/03/24 Unknown Rx iron) tablet (FeroSul) days #30 tabs furosemide 40 mg tablet 40 mg PO DAILY water pill 30 days 03/19/24 01/27/24 Rx #60 tabs clopidogrel 75 mg tablet 75 mg PO DAILY a fib 30 days #30 04/05/24 Unknown Rx tabs pantoprazole 40 mg tablet,delayed 40 mg PO BID reflux 30 days #60 04/05/24 Unknown Rx release tabs simvastatin 80 mg tablet 80 mg PO QHS cholesterol 06/20/24 Unknown History magnesium chloride 64 mg 128 mg PO DAILY leg cramps 08/17/24 Unknown History (magnesium chloride) tablet,delayed release (Mag 64) potassium chloride 20 mEq 20 meq PO BID supplement 08/20/24 Unknown History tablet,extended release amlodipine 10 mg tablet 10 mg PO .COMPLEX bp #90 tabs 09/04/24 Unknown Rx acetaminophen 500 mg capsule 500 mg PO QHS PRN pain 10/07/24 Unknown History fluticasone propionate 50 2 spray intranasal Q12H PRN 10/07/24 Unknown History mcg/actuation nasal congestion spray,suspension gabapentin 100 mg capsule 100 mg PO TID pain 10/07/24 Unknown History metoprolol succinate 25 mg 25 mg PO BID bp #60 tabs 10/10/24 Unknown Rx tablet,extended release 24 hr tizanidine 4 mg tablet 2 mg PO Q8 PRN muscle spasticity 12/13/24 Unknown History warfarin 2 mg tablet 2 mg PO .COMPLEX afib 12/13/24 Unknown History cinnamon bark 500 mg capsule 500 mg PO DAILY supplement 01/07/25 Unknown History (Cinnamon) coenzyme Q10 100 mg capsule (Co 100 mg PO DAILY supplement 01/07/25 Unknown History Q-10) cranberry 500 mg capsule 500 mg PO DAILY supplement 01/07/25 Unknown History diphenhydramine HCl 25 mg capsule 25 mg PO .qd allergies 01/07/25 Unknown History (Aler-Cap) lactobacillus combination no.4 3 3,000 mmu cells PO DAILY supplement 01/07/25 Unknown History billion cell capsule (Probiotic) losartan 100 1 tab PO .qd bp 01/07/25 Unknown History mg-hydrochlorothiazide 12.5 mg tablet Allergy/AdvReac Type Severity Reaction Status Date / Time benazepril (From Lotensin) Allergy Mild DOESNT Verified 01/07/25 08:47 REMEMBER quinapril (From Accupril) Allergy Mild UNKNOWN Verified 01/07/25 08:47 Sulfa (Sulfonamide Allergy Mild Hives Verified 01/07/25 08:47 Antibiotics) verapamil (From Calan) Allergy Mild UNKNOWN Verified 01/07/25 08:47 Family History Mother Diabetes Father Diabetes CVA (cerebral vascular accident) Heart disease Hypertension Myocardial infarction CAD (coronary artery disease) Brother Myocardial infarction Hypertension Heart disease CAD (coronary artery disease) Sister NAFLD (nonalcoholic fatty liver disease) Other Asthma COPD (chronic obstructive pulmonary disease) Surgical History History of esophagogastroduodenoscopy (EGD) (10/08/24) Hx of amputation History of transmetatarsal amputation of right foot History of femoropopliteal bypass S/P carotid endarterectomy Social History household members: spouse Smoking Status: Never smoker alcohol intake: never substance use type: does not use Audit: Pertinent Findings Pertinent Findings EKG Perinent findings: EKG December 13, 2024. Sinus bradycardia with first-degree AV block with premature supraventricular complexes. Stress test pertinent findings: Stress echo 11/14/2023. The exercise stress echo was negative for ischemia 101% of MPHR. Left ventricle is normal in size. EF 55%. Echo (EF%) pertinent findings: Echo 05/08/2024. EF 63%. Intermediate left ventricular diastolic function. Right ventricle is normal in size. Right ventricular systolic function is normal. Consult pertinent findings: Cardiology note December 13, 2024. The patient had an echo in May 08, 2024 showed mildly dilated left ventricle and ejection fraction 66% showed mild aortic valve stenosis. There is 1+ aortic insufficiency and the peak gradient was 14 and the mean gradient was 8. She may proceed from a cardiac standpoint. Recommendation Anesthesia Recommendation Anesthesia recommendation: OPTIMIZED for anesthesia (No need for new EKG)
[2025-01-16 10:39] LABS: Hematocrit 33.2 % (37-47); Hemoglobin 11.2 g/dL (12.0-15.0); Mean Corp Hgb Conc 33.7 g/dL (32-36); Mean Corpuscular Volume 94.3 fL (81-99); Mean Platelet Vol. 11.7 fl (6.2-12.0); Platelet Count 188 K/mm3 (150-450); RBC Distribution Width CV 15.0 % (11.6-14.6); RBC Distribution Width SD 52.0 fl (35.1-43.9); Red Blood Count 3.52 M/mm3 (4.2-5.4); White Blood Count 4.2 K/mm3 (4.4-11.0)
[2025-01-16 11:24] LABS: Anion Gap 16 (5-15); BUN 29 mg/dL (4-19); BUN/Creat Ratio 24.0 RATIO (10-20); Calcium,Total 9.4 mg/dL (7.6-11.0); Carbon Dioxide 18.9 mmol/L (21.0-32.0); Chloride 100 mmol/L (98-108); Glucose 337 mg/dL (70-99); Potassium 4.0 mmol/L (3.3-5.1)
--- NOTE | 2025-01-17 13:34 | PAT.ANESEVAL ---
Pre-Assessment Diagnosis/Proposed Procedure Planned Operative Procedure(s): (L) Carotidstent, Manager [employer], OR Staff, SIERRA, Shawn. Anesthesia History Anesthesia History - clinical pharmacologist: Anesthesia History - clinical pharmacologist Hx Hospitalization Yes: GI BLEED 10-2401/07/25 09:22 Any Problems With Anesthesia No 01/07/25 09:22 Cholinesterase deficiency No 01/07/25 09:22 You/Your Family Experience No 01/07/25 09:22 fever (hyperthermia) with Relationship Recent Exposure to Contagious No 10/09/24 00:03 Disease Does patient have nerve No 01/07/25 09:22 stimulator Patient instructed to have device shut off --Does patient have Pacemaker or ICD? When Was Last Pacemaker Check QUESTION #4 FULL TEXT: You/Your Family Experience fever (hyperthermia) with Anesthesia Last Oral Intake Last Oral intake: Last Oral Intake NPO since Meds taken in AM with sips of water? Meds patient instructed to take am of surgery PONV PONV - clinical pharmacologist: PONV - clinical pharmacologist Female Yes 01/07/25 09:22 HX of Motion Sickness No 01/07/25 09:22 HX of N/V After Surgery No 01/07/25 09:22 Non-Smoker Yes 01/07/25 09:22 Duration of Surgery greater Yes 01/07/25 09:22 than 60 minutes Number of Risk Factors 3 01/07/25 09:22 PONV Score Moderate Risk 01/07/25 09:22 Height & Weight Height & Weight: Anesthesia: Height & Weight Height 5 ft 3 in 10/09/24 10:20 Respiratory Assessment Respiratory Assessment - clinical pharmacologist: Respiratory Tract Infection Hx - clinical pharmacologist Hx Respiratory Tract Infection No 01/07/25 09:22 STOP Sleep Apnea STOP Sleep Apnea - clinical pharmacologist: STOP Sleep Apnea - clinical pharmacologist Hx Hypertension Yes 01/07/25 09:22 Hx Sleep Apnea Yes: USES O2 NC 3L AT HS 01/07/25 09:22 CPAP No 01/07/25 09:22 BIPAP No 01/07/25 09:22 Do you snore loudly (louder than talking or can be heard Do you often feel tired/ fatigued/ sleepy during daytime? Has anyone observed you stop breathing during sleep? STOP Results Positive 01/07/25 09:22 QUESTION #5 FULL TEXT : Do you snore loudly (louder than talking or can be heard through closed doors)? 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 Specify any problems Hx of Preganancy in last 3 No 01/07/25 09:22 Months Nurse Filling Out Transfusion [email or web address] 01/07/25 09:22 & Questions: Date: 01/07/25 01/07/25 09:22 Time: 01/07/25 09:22 Patient unable to answer at this time (ie. confused, unrespo /Reproduction History /Reproductive History - clinical pharmacologist: /Reproductive Hx- clinical pharmacologist Hx Now No 01/07/25 09:22 Gestational Age (in weeks): EDC: Hx Hx Para Hx Section SAB No 01/07/25 09:22 [facility] Medical History (Updated 01/07/25 @ 09:22 by Cherelle Menedz) Wears hearing aid in both ears Diabetes Sleep apnea Hx of cardiovascular stress test Hx of echocardiogram Cardiology follow-up encounter Preop cardiovascular exam (HFpEF) heart failure with preserved ejection fraction Pleural effusion, left TIA (transient ischemic attack) Wears glasses Depression Heartburn Non-smoker On home oxygen therapy Hypertension Gastric ulcer Aortic valve stenosis Atrial fibrillation Dilated cardiomyopathy Prolonged QT interval Elevated blood pressure reading without diagnosis of hypertension Factor V Leiden Anxiety Hypokalemia Acute hypoxemic respiratory failure CHF (congestive heart failure) Home Medications ?Medication ?Instructions ?Recorded ?Last Taken ?Type oxybutynin chloride 10 mg 10 mg PO DAILY bladder 09/23/23 08/22/24 History tablet,extended release 24 hr glimepiride 2 mg tablet 2 mg PO DAILY dm 12/31/23 Unknown History ferrous sulfate 325 mg (65 mg 325 mg PO DAILY@1200 supplement 30 02/03/24 Unknown Rx iron) tablet (FeroSul) days #30 tabs furosemide 40 mg tablet 40 mg PO DAILY water pill 30 days 03/19/24 01/27/24 Rx #60 tabs clopidogrel 75 mg tablet 75 mg PO DAILY a fib 30 days #30 04/05/24 Unknown Rx tabs pantoprazole 40 mg tablet,delayed 40 mg PO BID reflux 30 days #60 04/05/24 Unknown Rx release tabs simvastatin 80 mg tablet 80 mg PO QHS cholesterol 06/20/24 Unknown History magnesium chloride 64 mg 128 mg PO DAILY leg cramps 08/17/24 Unknown History (magnesium chloride) tablet,delayed release (Mag 64) potassium chloride 20 mEq 20 meq PO BID supplement 08/20/24 Unknown History tablet,extended release amlodipine 10 mg tablet 10 mg PO .COMPLEX bp #90 tabs 09/04/24 Unknown Rx acetaminophen 500 mg capsule 500 mg PO QHS PRN pain 10/07/24 Unknown History fluticasone propionate 50 2 spray intranasal Q12H PRN 10/07/24 Unknown History mcg/actuation nasal congestion spray,suspension gabapentin 100 mg capsule 100 mg PO TID pain 10/07/24 Unknown History metoprolol succinate 25 mg 25 mg PO BID bp #60 tabs 10/10/24 Unknown Rx tablet,extended release 24 hr tizanidine 4 mg tablet 2 mg PO Q8 PRN muscle spasticity 12/13/24 Unknown History warfarin 2 mg tablet 2 mg PO .COMPLEX afib 12/13/24 Unknown History cinnamon bark 500 mg capsule 500 mg PO DAILY supplement 01/07/25 Unknown History (Cinnamon) coenzyme Q10 100 mg capsule (Co 100 mg PO DAILY supplement 01/07/25 Unknown History Q-10) cranberry 500 mg capsule 500 mg PO DAILY supplement 01/07/25 Unknown History diphenhydramine HCl 25 mg capsule 25 mg PO .qd allergies 01/07/25 Unknown History (Aler-Cap) lactobacillus combination no.4 3 3,000 mmu cells PO DAILY supplement 01/07/25 Unknown History billion cell capsule (Probiotic) losartan 100 1 tab PO .qd bp 01/07/25 Unknown History mg-hydrochlorothiazide 12.5 mg tablet Allergy/AdvReac Type Severity Reaction Status Date / Time benazepril (From Lotensin) Allergy Mild DOESNT Verified 01/07/25 08:47 REMEMBER quinapril (From Accupril) Allergy Mild UNKNOWN Verified 01/07/25 08:47 Sulfa (Sulfonamide Allergy Mild Hives Verified 01/07/25 08:47 Antibiotics) verapamil (From Calan) Allergy Mild UNKNOWN Verified 01/07/25 08:47 Family History Mother Diabetes Father Diabetes CVA (cerebral vascular accident) Heart disease Hypertension Myocardial infarction CAD (coronary artery disease) Brother Myocardial infarction Hypertension Heart disease CAD (coronary artery disease) Sister NAFLD (nonalcoholic fatty liver disease) Other Asthma COPD (chronic obstructive pulmonary disease) Surgical History History of esophagogastroduodenoscopy (EGD) (10/08/24) Hx of amputation History of transmetatarsal amputation of right foot History of femoropopliteal bypass S/P carotid endarterectomy Social History household members: spouse Smoking Status: Never smoker alcohol intake: never substance use type: does not use Audit: Pertinent Findings HISTORY of Pertinent Findings History of Pertinent Findings: EKG Pertinent Findings EKG Perinent findings EKG December 13, 2024. Sinus 01/07/25 14:29 bradycardia with first- degree AV block with premature supraventricular complexes. Stress Test Pertinent Findings Stress test pertinent findings Stress echo 11/14/2023. The 01/07/25 14:29 exercise stress echo was negative for ischemia 101% of MPHR. Left ventricle is normal in size. EF 55%. Echo Pertinent Findings Echo (EF%) pertinent findings Echo 05/08/2024. EF 63%. 01/07/25 14:29 Intermediate left ventricular diastolic function. Right ventricle is normal in size. Right ventricular systolic function is normal. Consult Pertinent Findings Consult pertinent findings Cardiology note December 13, 01/07/25 14:29 2024. The patient had an echo in May 08, 2024 showed mildly dilated left ventricle and ejection fraction 66% showed mild aortic valve stenosis. There is 1+ aortic insufficiency and the peak gradient was 14 and the mean gradient was 8. She may proceed from a cardiac standpoint. Recommendation Anesthesia Recommendation Anesthesia recommendation: OPTIMIZED for anesthesia (Latest glucose is 337 on January 16, 2025. Repeat on day of surgery. Hemoglobin A1c is acceptable at 7.3.)
[2025-01-22] VITALS (27 sets, daily range): BP systolic 107–158; BP diastolic 41–92; PULSE 50–71; RESP 10–22; TEMP 35.8–36.6; O2SAT 82–100; BMI 26.9
--- OUTSIDE RECORDS SUMMARY | 2025-01-22 05:25 | XMS RPT_ITS | CCD ---
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 Kierra Santiago MD Primary Care Provider Luis ERICKSON, Dr. [...] Dr. Robb Giron DO Other Provider [phone] Roly Herrera MD Attending Provider Dr. Shaan Rojas MD Attending Provider [phone] Crystal ERICKSON, Dr. Garduno Referring Provider Javier ERICKSON, Dr. Dunham Other Provider Socrates PA, Laura Referring Provider Ese Solano Attending Provider Ese Solano Referring Provider Roof ASBESTOS COVERER-C, Dominick H Attending Provider Roof ASBESTOS COVERER-C, Dominick H Referring Provider Luis ERICKSON, Dr. Jason Hilliard Other Provider Socrates SEGURA, Laura Attending Provider [phone] Eric [employer] INTERNSHIP.POPULATION HEALTH COACH, Sheryl Unavailable Khadijah ERICKSON, Dr. Kierra Solis Primary Care Provider [phone] Khadijah ERICKSON, Dr. Kierra Solis Referring Provider Socrates SEGURA, Laura Attending Provider [phone] Khadijah ERICKSON, Dr. Kierra Solis Primary Care Provider [phone] Khadijah ERICKSON, Dr. Kierra Solis Referring Provider Mack ZARATE, Dr. Zamudio Attending Provider Friend , Dr. Zamudio Other Provider Roof ASBESTOS COVERER-C, Dominick H Other Provider Crystal ERICKSON, Dr. Garduno Attending Provider Referred, Self Attending Provider Unavailable Evangelist JAVIER, Dr. Knight Attending Provider Dr. Eugene Blanca DPM Referring Provider Caren ERICKSON, Dr. Jarvis Emergency Provider Javier ERICKSON, Dr. Dunham Other Provider Toni ERICKSON, Dr. Kelsie Palmer Admit Provider Toni ERICKSON, Dr. Kelsie Palmer Attending Provider Caren ERICKSON, Dr. Jarvis Emergency Provider Javier ERICKSON, Dr. Dunham Other Provider Toni ERICKSON, Dr. Kelsie Palmer Admit Provider Toni ERICKSON, Dr. Kelsie Palmer Other Provider Dov ZARATE, Dr. Garduno Attending Provider Javier ERICKSON, Dr. Dunham Attending Provider Dr. Shaan Monae DO Other Provider Telma ERICKSON, Dr. Jose Cabrales Attending Provider 1([facility])[phone] Colón [employer] INTERNSH[employer].BLUEPRINT MAKER, Anastasiia Unavailable Khadijah ERICKSON, Dr. Kierra Solis Primary Care Provider [facility] ASBESTOS COVERER-C, Dominick Faria Attending Provider Khadijah ERICKSON, Dr. Kierra Solis Referring Provider 1([facility] )[phone] Laura Armendariz Attending Provider Laura Armendariz Referring Provider 1([facility])[phone] oDv ZARATE, Dr. Garduno Referring Provider 1([facility])[phone] Khadijah ERICKSON, Dr. Kierra Solis Primary Care Provider [phone] [facility] ASBESTOS COVERER-C, Dominick Faria Attending Provider [facility] ASBESTOS COVERER-C, Dominick Faria Referring Provider 1([facility])[phone] COLÓN, ANASTASIIA Referring Unavailable TALAMPAS, KIERRA D Primary Care Unavailable SLEIK, KHALED MELOUD Attending Unavailable COLÓN, ANASTASIIA Referring Unavailable TALAMPAS, KIERRA D Primary Care Unavailable TALAMPAS, KIERRA D Primary Care Unavailable TALAMPAS, KIERRA D Primary Care Unavailable DELGADO, DAYLIN D Referring Unavailable TALAMPAS, KIERRA D Primary Care Unavailable TALAMPAS, KIERRA D Primary Care Unavailable COLÓN, ANASTASIIA Attending Unavailable SELF Referring Unavailable TALAMPAS, KIERRA D Primary Care Unavailable SLEIK, KHALED MELOUD Referring Unavailable SLEIK, KHALED MELOUD Attending Unavailable TALAMPAS, KIERRA D Primary Care [...] Care Unavailable DELGADO, DAYLIN D Referring Unavailable DELGADO, DAYLIN D Attending Unavailable TALAMPAS, KIERRA D Primary Care Unavailable TERRENCE JANE Referring Unavailable TALAMPAS, KIERRA D Primary Care Unavailable TALAMPAS, KIERRA D Primary Care Unavailable TALAMPAS, KIERRA D Primary Care Unavailable COLÓN, ANASTASIIA Referring Unavailable TALAMPAS, KIERRA D Primary Care Unavailable Talampas, Kierra D Primary Care Unavailable Laura Crowell Attending Unavailable Talampas, Kierra D Primary Care Unavailable Eugene Blanca Referring Unavailable Eugene Blanca Attending Unavailable Kelsie Muñoz Admitting Unavailable Roly Herrera Consulting Unavailable Talampas, Kierra D Primary Care Unavailable Shaan Monae Attending Unavailable Kelsie Muñoz Consulting Unavailable Shaan Monae Consulting Unavailable Suresh Merida Admitting Unavailable Suresh Merida Consulting Unavailable Talampas, Kierra D Primary Care Unavailable Roxann Wong Attending Unavailable Sukhdev Hernandez Consulting Unavailable Van Ridley Consulting Unavailable Eugene Blanca Consulting Unavailable Shaan Rojas Consulting Unavailable Roxann Wong Consulting Unavailable Laura Crowell Attending Unavailable Roxann Wong Referring Unavailable Jaimie Vargas Consulting Unavailable Talampas, Kierra D Primary Care Unavailable Talampas, Kierra D Referring Unavailable Friend, Robb Consulting Unavailable FriendAdiliaRobb Attending Unavailable Talampas, Kierra D Primary Care Unavailable Julio Cesar ASBESTOS COVERERDominick Referring Unavailable Dominick Harrell NP Attending Unavailable Talampas, Kierra D Primary Care Unavailable Crowell, Laura Referring Unavailable Crowell, Laura Attending Unavailable Julio Cesar ASBESTOS COVERER, Dominick Faria Consulting Unavailable Sukhdev Hernandez Attending Unavailable Talampas, Kierra D Primary Care Unavailable Talampas, Kierra D Referring Unavailable Roof ASBESTOS COVERER, Dominick Faria Attending Unavailable Ese Hillman Attending Unavailable Talampas, Kierra D Primary Care Unavailable Talampas, Kierra D Referring Unavailable Talampas, Kierra D Primary Care Unavailable Crowell, Laura Attending Unavailable Talampas, Kierra D Referring Unavailable Roly Herrera Attending Unavailable Talampas, Kierra D Primary Care Unavailable Talampas, Kierra D Referring Unavailable Talampas, Kierra D Primary Care Unavailable Talampas, Kierra D Referring Unavailable Roof ASBESTOS COVERER, Dominick Faria Attending Unavailable Suresh Merida Attending Unavailable Jaimie Vargas Attending Unavailable Robb Giron Attending Unavailable Shaan Monae Referring Unavailable Crystal, Shaan Attending Unavailable Talampas, Kierra D Primary Care Unavailable Talampas, Kierra D Referring Unavailable Crowell, Laura Attending Unavailable Talampas, Kierra D Primary Care Unavailable Talampas, Kierra D Referring Unavailable Talampas, Kierra D Primary Care Unavailable Talampas, Kierra D Referring Unavailable Friend, Robb Attending Unavailable FriendRobb Consulting Unavailable Shaan Rojas Attending Unavailable Crowell, Laura Referring Unavailable Talampas, Kierra D Primary Care Unavailable Talampas, Kierra D Primary Care Unavailable Crystal, Shaan Attending Unavailable Crowell, Laura Referring Unavailable Crowell, Laura Attending Unavailable Talampas, Kierra D Primary Care Unavailable Talampas, Kierra D Referring Unavailable Talampas, Kierra D Primary Care Unavailable Crowell, Laura Attending Unavailable Talampas, Kierra D Referring Unavailable Talampas, Kierra D Primary Care Unavailable [place], Shaan Referring Unavailable [place], Shaan Attending Unavailable Talampas, Kierra D Primary Care Unavailable Abel Celayaril Attending Unavailable Yomi, Celina Referring Unavailable Talampas, Kierra D Primary Care Unavailable [place], Shaan Attending Unavailable Crowell, Laura Referring Unavailable Talampas, Kierra D Primary Care Unavailable Eugene Blanca Consulting Unavailable Luis, Jason Chi Referring Unavailable Luis, Jason Chi Admitting Unavailable FriendRobb Attending Unavailable [place], Shaan Consulting Unavailable Luis, Jason Chi Consulting Unavailable Crowell, Laura Attending Unavailable Roly Herrera Attending Unavailable Roly Herrera Consulting Unavailable Kelsie Muñoz Attending Unavailable Talampas, Kierra D Primary Care Unavailable Kelsie Muñoz L Admitting Unavailable Kelsie Muñoz L Consulting Unavailable Crystal, Shaan Referring Unavailable Crystal, Shaan Attending Unavailable David, Sukhdev Referring Unavailable Crowell, Laura Referring Unavailable Crowell, Laura Attending Unavailable Talampas, Kierra D Primary Care Unavailable JoenasovEse Referring Unavailable Talampas, Kierra D Primary Care Unavailable AtanasovEse Attending Unavailable Talampas, Kierra D Primary Care Unavailable Crowell, Laura Referring Unavailable Crowell, Laura Attending Unavailable Roly Herrera Consulting Unavailable Talampas, Kierra D Primary Care Unavailable [place], Shaan Referring Unavailable [place], Shaan Attending Unavailable Talampas, Kierra D Primary Care Unavailable Referred, Self Attending Unavailable Talampas, Kierra D Primary Care Unavailable Referred, Self Attending Unavailable [place], Shaan Referring Unavailable Crystal, Shaan Attending Unavailable Talampas, Kierra D Primary Care Unavailable Talampas, Kierra D Primary Care Unavailable Eugene Blanca Consulting Unavailable Luis, Jason Chi Admitting Unavailable Luis, Jason Chi Attending Unavailable Luis, Jason Chi Referring Unavailable [place], Shaan Consulting Unavailable Talampas, Kierra D Primary Care Unavailable SementiKimberlyn Admitting Unavaila ble Sementi, Kimberlyn Serrano Referring Unavaila ble Sementi, Kimberlyn Serrano Attending Unavaila ble Roly Herrera Consulting Unavailable Talampas, Kierra D Primary Care Unavailable Kelsie Muñoz Admitting Unavailable Shaan Monae Attending Unavailable Kelsie Muñoz Consulting Unavailable Jaimie Vargas Attending Unavailable Suresh Merida Admitting Unavailable Suresh Merida Consulting Unavailable Talampas, Kierra D Primary Care Unavailable David, Sukhdev Consulting Unavailable Van [place] Consulting Unavailable Eugene Blanca Consulting Unavailable [place], Shaan Consulting Unavailable Roxann Wong Consulting Unavailable [place], Shaan Attending Unavailable Crystal, Shaan Referring Unavailable [place], Shaan Admitting Unavailable Talampas, Kierra D Primary Care Unavailable Talampas, Kierra D Primary Care Unavailable Talampas, Kierra D Referring Unavailable Robb Giron Attending Unavailable Talampas, Kierra D Primary Care Unavailable Talampas, Kierra D Referring Unavailable Friend, Robb Attending Unavailable Talampas, Kierra D Primary Care Unavailable Crowell, Laura Referring Unavailable Crowell, Laura Attending Unavailable Talampas, Kierra D Primary Care Unavailable Roof ASBESTOS COVERER, Dominick H Attending Unavailable Roof ASBESTOS COVERER, Dominick H Referring Unavailable Crowell, Laura Referring Unavailable Crowell, Laura Attending Unavailable Talampas, Kierra D Primary Care Unavailable Talampas, Kierra D Primary Care Unavailable Roof ASBESTOS COVERER, Dominick H Attending Unavailable Roof ASBESTOS COVERER, Dominick H Referring Unavailable Allergies Allergy Classification Reported Allergen(s) Allergy Type Date of Onset Reaction(s) Facility Angiotensin Converting Enzyme (JUAN J) Inhibitors (4 sources) quinapril Drug Allergy 5 Unknown [facility] Calcium Channel Blockers (2 sources) Verapamil Drug Allergy 5 Unknown [facility] Sulfonamides (antibiotic) (2 sources) Sulfonamides (Antibiotic) Drug Allergy 5 Unknown [facility] (20 sources) benazepril; Translations: [BENAZEPRIL HCL] Drug Allergy 5 Unknown [facility] Work Phone: (20 sources) quinapril; Translations: [QUINAPRIL] Drug Allergy 5 Unknown [facility] Work Phone: (20 sources) Sulfonamides (Antibiotic); Translations: [SULFA (SULFONAMIDE ANTIBIOTICS)] Propensity to adverse reactions to drug 5 Unknown [facility] Work Phone: (20 sources) Verapamil; Translations: [VERAPAMIL] Drug Allergy 5 Unknown [facility] Work Phone: (13 sources) metFORMIN Drug Allergy 3 Intolerance [facility] (20 sources) DULoxetine; Translations: [DULOXETINE] Drug Allergy 4 Intolerance [facility] (10 sources) benazepril Drug Allergy 5 DOESNT REMEMBER [facility] (10 sources) Sulfonamides (Antibiotic) Allergy to substance 5 Hives [facility] (1 source) benazepril Drug Allergy 5 [facility] (1 source) quinapril Drug Allergy 5 [facility] (1 source) Sulfonamides (Antibiotic) Drug allergy (disorder) 5 [facility] (1 source) Verapamil Drug Allergy 5 [facility] Medications Current Medications Medication Drug [...] HOURS 01/27/2024 Active Start: 01-27-2024 End: 06-12-2024 acetaminophen (TYLENOL) 500 mg tablet 1,000 mg. 01/27/2024 Active amLODIPine 10 mg oral tablet (20 sources) Dihydropyridine Calcium Channel Hillary Start: 08-29-2024 End: 09-04-2024 take 1 tablet by mouth once daily amLODIPine (NORVASC) 10 mg tablet Take 10 mg by mouth once daily. 09/04/2024 Active Start: 08-20-2024 End: 08-29-2024 take 1 tablet by mouth once daily Amlodipine 5 mg tablet Discontinued 5 mg PO daily 31 03August 20, 2024 12:00am August 29, 2024 11:34am [...] 23, 2023 12:00am January 03, 2024 7:25am blood pressu Start: 07-01-2022 End: 10-10-2023 take 1.5 tablets [...] sources) P2Y12 Platelet Inhibitor Start: 4 End: take 1 tablet by mouth once daily clopidogrel (PLAVIX) 75 mg tablet Take 1 tablet by mouth once daily. 90 tablet 3 10/19/2024 Active doxycycline monohydrate 100 mg oral tablet (1 [...] Tablet Active 325 mg PO DAILY@1200 30 30 0 February 03, 2024 12:00am supplement Comment on above: Take 325 mg by mouth . fluticasone propionate 0.05 mg/actuat metered dose nasal spray (20 sources) Corticosteroid Start: Fluticasone Propionate 50 mcg/actuation spray,suspension Active 2 NMA INTRANASAL Q12H as needed for congestion October 07, 2024 12:00am Start: 10-07-2024 Fluticasone Pr opionate 50 mcg/actuation spray,suspension Active NMA INTRANASAL October [...] take 1 tablet by mouth once daily furosemide (LASIX) 40 mg tablet Indications: Type 2 diabetes mellitus with diabetic polyneuropathy, without long-term current use of insulin (HCC) Take 1 tablet by mouth once daily. 02/24/2024 Active Start: 01-03-2024 End: 03-19-2024 take 1 tablet by mouth twice daily Furosemide 40 mg Tablet Discontinued 40 mg PO TWICE DAILY 60 30 2 January 03, 2024 12:00am March 19, 2024 4:40pm water pill gabapentin 100 mg oral capsule (20 sources) Anti-epileptic Agent Start: 10-07-2024 take 1 capsule by mouth three times daily Gabapentin 100 mg capsule Active 100 mg PO THREE TIMES A DAY October 07, 2024 12:00am Start: 04-05-2024 End: 07-20-2024 take 1 capsule by mouth three times daily at mealtime Gabapentin 100 mg Capsule Discontinued 100 mg PO 3 TIMES DAILY WITH MEALS 90 30 0 April 05, 2024 1:00am July 20, 2024 4:21pm Start: 01-27-2024 End: 04-17-2025 take 1 capsule by mouth twice daily gabapentin (NEURONTIN) 100 mg capsule Take 1 capsule by mouth two times a day for 180 days. 180 capsule 1 10/19/2024 04/17/2025 Active Start: 01-27-2024 End: 03-07-2024 take 2 capsules by mouth twice daily at mealtime Gabapentin 100 mg Capsule Discontinued 200 mg PO TWICE DAILY WITH MEALS 0 0 January 27, 2024 12:00am March 07, 2024 10:50pm nerve pain glimepiride 2 mg oral tablet (20 sources) Sulfonylurea Start: 10-30-2024 take 1 tablet by mouth twice daily glimepiride (AMARYL) 2 mg tablet Take 1 tablet by mouth two times a day. As directed 180 tablet 1 10/30/2024 Active Start: 11-14-2023 End: 10-29-2024 take 1 tablet by mouth once daily Glimepiride 2 mg tablet Active 2 mg PO DAILY December 31, 2023 12:00am dm iv contrast (will be provided with radiology [...] take 1 tablet by mouth once daily losartan (COZAAR) 100 mg tablet Take 100 mg by mouth once daily. 08/20/2024 Active Start: 06-12-2024 Losartan 25 mg tablet Discontinued 12.5 mg PO THREE TIMES A DAY June 12, 2024 1:00am Start: 01-03-2024 End: 02-22-2025 take 1 tablet by mouth at dinner Losartan 50 mg Tablet Discontinued 50 mg PO WITH DINNER 30 30 January 03, 2024 12:00am April 05, 2024 8:44pm blood pressure magnesium chloride 598 mg delayed release oral tablet (20 sources) Start: 08-17-2024 Magnesium Chlo ride (Mag 64) 64 mg tablet,delayed release (DR/EC) Active 128 mg PO DAILY August 17, 2024 12:00am Start: 08-17-2024 Magnesium Chlo ride [Magnesium Chloride 64 Mg (Magnesium Chloride) Tablet,Delayed Release] (Magnesium Chloride 64 Mg (Magnesium Chloride) Tablet,Delayed ) 64 mg tablet,delayed release (DR/EC) Active 128 mg PO DAILY August 17, 2024 12:00am Start: 02-03-2024 End: 06-20-2024 Magnesium Chloride (Mag 64) 64 mg Tablet,Delayed Release (Dr/Ec) Discontinued 128 mg PO DAILY 60 30 0 February 03, 2024 12:00am June 20, 2024 11:01am supplement End: 04-09-2024 take 1 tablet by mouth [...] Take by mouth. 04/17/2024 Discontinued 24 hr oxybutynin chloride 10 mg extended release oral tablet (20 sources) Cholinergic Muscarinic Antagonist Start: 07-01-2022 End: 07-17-2024 take 1 tablet by mouth once daily oxybutynin ER (DITROPAN XL) 10 mg 24 hr tablet Take 1 tablet by mouth once daily. 90 tablet 3 07/17/2024 Active Comment on above: Take 1 tablet by jorge once daily. Take 10 mg by mouth once daily. pantoprazole 40 mg delayed release oral tablet (20 sources) Proton Pump Inhibitor Start: 04-06-2024 End: 10-24-2024 take 1 tablet by mouth every twelve hours pantop[address] (PROTONIX) 40 mg tablet Indications: Acute gastric ulcer, unspecified whether gastric ulcer hemorrhage or perforation present , Duodenal ulcer Take 1 tablet by mouth every 12 hours. 180 tablet 3 10/24/2024 Active Start: 04-05-2024 take 1 tablet by jorge twice daily Pantoprazole 40 mg Tablet,Delayed Release (Dr/Ec) Active 40 mg PO TWICE A DAY 60 30 0 April 05, 2024 1:00am microencapsulated potassium chloride 20 meq extended release oral [...] meq PO THREE TIMES A DAY 0 0 July 20, 2024 4:19pm August 20, 2024 9:07am Start: 04-05-2024 End: 10-24-2024 take 1 tablet by mouth twice daily potassium chloride ER (KLOR-CON) 20 mEq tablet Take 1 tablet by mouth two times a day. 180 tablet 3 10/24/2024 Active simvastatin 80 mg oral tablet (20 sources) HMG-CoA Reductase Inhibitor Start: 07-01-2022 End: 07-17-2024 take 1 tablet by mouth once daily at bedtime simvastatin (ZOCOR) 80 mg tablet Take 1 tablet by mouth daily at bedtime. 90 tablet 3 07/17/2024 Active Comment on above: Take 1 tablet by jorge th daily at bedtime. Take 80 mg by mouth daily at bedtime. tiZANidine 4 mg oral tablet (20 sources) Central alpha-2 Adrenergic Agonist Start: 06-19-2024 End: 11-15-2024 take 1 tablet by mouth every eight hours as needed tiZANidine (ZANAFLEX) 4 mg tablet Take 1 tablet by mouth every 8 hours as needed. 30 tablet 2 11/15/2024 Active Start: 04-05-2024 End: 12-13-2024 take 1 tablet by mouth every eight hours as needed for muscle spasms Tizanidine 2 mg Tablet Discontinued 2 mg PO EVERY 8 HOURS as needed for Muscle Spasm October 07, 2024 12:00am December 13, 2024 9:47am Start: 03-09-2024 End: 04-05-2024 take 1 tablet [...] 31, 2023 12:00am February 03, 2024 2:26pm Completed/Discontinued Medications Medication Drug Class(es) Dates Sig (Normalized) Sig (Original) Numra-Ysyz-Kjnpm-Co llag-Mv-Min (Buster (With Collagen)) 7-7-1.5 gram Powder In Packet (10 sources) Start: 02-03-2024 End: 03-07-2024 Mwppr-Gqmn-Dsetv-Col lag-Mv-Min (Buster (With Collagen)) 7-7-1.5 gram Powder In Packet Discontinued 1 NMA PO TWICE DAILY WITH MEALS 60 30 0 February 03, 2024 12:00am March 07, 2024 10:50pm Start: 02-03-2024 End: 03-07-2024 Evyhb-Hbwg-Jggyk-Collag-Mv-M in (Buster (With Collagen)) 7-7-1.5 gram Powder In Packet Discontinued 1 NMA PO TWICE DAILY WITH MEALS 60 30 February 03, 2024 12:00am March 07, 2024 10:50pm argin/glut/CaHMB/collag/mv-m in (BUSTER, WITH COLLAGEN, ORAL) (15 sources) End: 04-17-2024 argin/glut/CaHMB/collag/mv-m in (BUSTER, WITH COLLAGEN, ORAL) Take by mouth. 04/17/2024 Discontinued argin/glut/CaHMB /collag/mv-min (BUSTER, WITH COLLAGEN, ORAL) Take by mouth. Active [...] by mouth. cephalexin 500 mg oral capsule (10 sources) Cephalosporin Antibacterial Start: End: take 1 capsule by mouth every six hours Cephalexin 500 mg capsule Discontinued 500 mg PO EVERY 6 HOURS 40 0 January 13, 2024 12:00am January 27, 2024 [...] 4,200 mg by jorge th. Cinnamon Preparation (8 sources) Non-Standardized Food Allergenic Extract Start: 08-17-2024 [...] mg by mouth . cranberry fruit concentrate (10 sources) Start: 03-07-2024 End: 04-05-2024 cranberry fruit concentrate Discontinued 1 {tbl} PO DAILY March 07, 2024 1:00am April 05, 2024 8:44pm supplement Start: 03-07-2024 End: 04-05-2024 cranberry fruit concentrate [...] 100million cell tab (3 sources) End: 08-02-2022 cranberry-B.fpzmnchh-R-Uq phos 480 mg-20 mg- 100million cell tab [...] Active docusate sodium 50 mg / sennosides, jail 8.6 mg oral tablet (20 sources) Start: 01-27-2024 End: 05-14-2024 Sennosides-Docusate Sodium (Stimulant Laxative Plus) 8.6-50 mg Tablet Discontinued 2 {tbl} PO DAILY 60 30 0 April 05, 2024 1:00am May 14, 2024 [...] nge Discontinued 70 mg SC Q12H 42 30 0 February 03, 2024 12:00am March 07, 2024 [...] Take by mouth. 04/17/2024 Discontinued Food Supplemt, Lactose-Reduced (Ensure Plus High Protein) 0.08 gram-1.5 kcal/mL Liquid (10 sources) Start: 01-27-2024 End: 02-03-2024 Food Supplemt, Lactose-Reduced (Ensure Plus High Protein) 0.08 gram-1.5 kcal/mL Liquid Discontinued 120 mL PO 3 TIMES DAILY WITH MEALS 0 0 January 27, 2024 12:00am February 03, 2024 2:23pm supplement Start: 01-27-2024 End: 02-03-2024 Food Supplemt, Lactose-Reduc ed (Ensure Plus High [...] 1 {tbl} PO TWICE A DAY 0 0 July 20, 2024 4:15pm July 20, [...] 10 mg oral capsule (20 sources) End: 10-24-2024 melatonin 10 mg cap Take by mouth. [...] times a day with meals. As directed 24 hr metoprolol succinate 50 mg extended release oral tablet (20 sources) beta-Adrenergic Hillary Start: End: take 1 tablet by mouth twice daily Metoprolol Succinate 50 mg tablet extended release 24 hr Discontinued 50 mg PO TWICE A DAY 1 July 20, 2024 12:00am October 10, 2024 3:33pm Start: 03-19-2024 take 1 tablet by jorge th twice daily metoprolol succinate ER (TOPROL XL) 25 mg 24 hr tablet Take 25 mg by mouth two times a day. 03/19/2024 Active Start: 03-19-2024 End: 07-20-2024 take 1 tablet by mouth every twenty-four hours at dinner Metoprolol Succinate 25 mg Tablet Extended Release 24 Hr Discontinued 25 mg PO WITH DINNER 30 30 0 April 05, 2024 1:00am July 20, 2024 4:17pm Start: 01-03-2024 End: 05-04-2025 take 1 tablet by mouth once daily Metoprolol Succinate 50 mg tablet extended release 24 hr Discontinued 50 mg PO DAILY 30 30 2 January 03, 2024 12:00am April 05, 2024 8:45pm heart rate Start: 12-30-2023 End: 12-29-2024 take 1 tablet [...] on above: Take 3 tablets by mo [facility] twice daily. Take 75 mg by mouth twice daily. Take 1.5 tablets by mouth two times a day. Miscellaneous Medical Supply (20 sources) Start: End: take 1 dose by mouth twice daily Miscellaneous Medical Supply Take 1 Each by mouth two times a day. [employer] [place] 3+CoQ10 --30 mg of CoQ10 01/11/2024 06/04/2024 Discontinued (Course of therapy completed) Start: 01-11-2024 take 1 dose by mouth twice daily Miscellaneous Medical Supply Take 1 Each by mouth two times a day. [employer] [place] 3+CoQ10 --30 mg of CoQ10 01/11/2024 Active Multivitamin capsule (3 sources) End: 08-02-2022 take 1 capsule by mouth once daily Multivitamin capsule Take 1 capsule by mouth once daily. 0 08/02/2022 Discontinued take 1 capsule by mouth once dyana ly Multivitamin capsule Take 1 capsule by mouth once daily. 0 Active Comment on above: Take 1 capsule by mo [facility] once daily. OMEGA-3 FATTY ACIDS/FISH OIL (OMEGA [...] capsule (20 sources) Proton Pump Inhibitor Start: 02-05-20 End: 04-17-20 take 1 capsule by mouth once daily Omeprazole 20 mg capsule,delayed release(DR/EC) Discontinued 20 mg PO DAILY September 23, 2023 12:00am March 07, 2024 10:50pm reflux Comment on above: Take 1 capsule by [facility] daily before breakfast. 1/2 hr before meal. oxyCODONE hydrochloride 5 mg oral tablet (20 sources) Opioid Agonist Start: 01-27-20 End: 06-19-19 take 2 tablets by mouth every four hours as needed for pain Oxycodone 5 mg Tablet Discontinued 10 mg PO EVERY 4 HOURS NEEDED as needed for Pain Score 4-10 36 3 0 March 19, 2024 April 05, 2024 8:45pm Acute occlusion of artery Unspecified atherosclerosis Start: 01-27-2024 End: 03-08-2024 take 1 tablet [...] Comment on above: Take by mouth. sertraline 50 mg oral tablet (20 sources) Serotonin Reuptake Inhibitor Start: 10-10-2024 End: 10-31-2024 Sertraline 50 mg Tablet Discontinued 25 mg PO DAILY 0 0 October 10, 2024 12:00am October 31, 2024 1:54pm Start: 03-02-2024 End: 10-24-2024 take 1 tablet by mouth once daily Sertraline 25 mg tablet Discontinued 25 mg PO DAILY March 07, 2024 1:00am October 07, 2024 11:40pm mood sodium chloride 0.111 meq/ml nasal spray (20 sources) End: 04-17-2024 sodium chloride (AYR SALINE) 0.65 % nasal spray Use 2 Sprays in the nose as needed. 04/17/2024 Discontinued Comment on above: Use 2 Sprays in the nose as needed. SODIUM CHLORIDE/SODIUM BICARB (SINUS WASH NASAL) (18 sources) End: 12-21-2022 SODIUM CHLORIDE/SODIUM BICARB (SINUS WASH NASAL) Use [...] 03, 2024 12:00am April 05, 2024 8:46pm water pill Hold for serum potassium more than 5.0 Start: 01-03-2024 End: 04-05-2024 Spironolactone 25 mg [...] HOURS NEEDED as needed for PAIN 1-3 21 7 0 February 03, 2024 12:00am March 19, 2024 4:39pm UBIDECARENONE/VITAMIN E MIXED (COQ10 SG 100 ORAL) (18 sources) End: 12-21-2022 UBIDECARENONE/VITAM IN E MIXED (COQ10 SG 100 ORAL) Take by mouth. 0 12/21/2022 Discontinued UBIDECARENONE/ TAMIN E MIXED (COQ10 SG 100 ORAL) Take by mouth. 0 Active Comment on above: Take by mouth. vancomycin 125 mg oral capsule (10 sources) Glycopeptide Antibacterial Start: 5 End: take 1 capsule by mouth every six hours Vancomycin 125 mg capsule Discontinued 125 mg PO EVERY 6 HOURS 40 10 0 June 20, 2024 1:00am June 29, 2024 [...] Comment on above: Take 1,000 mcg by mo [facility] once daily. vitamin E mixed/tocotrienol (VITAMIN E [...] above: Take 180 mg by mouth . warfarin sodium 3 mg oral tablet (20 sources) Vitamin K Antagonist Start: 08-17-2024 End: 12-13-2024 take 1 tablet by mouth once Warfarin 3 mg tablet Discontinued 3 mg PO every Tuesday, , , TueAugust 17, 2024 12:00am December 13, 2024 9:43am On Hold: Resume on 10/14/24. Start: 07-02-2022 End: 12-13-2024 take 2 tablets by mouth once daily warfarin (COUMADIN) 2 mg tablet Take 2 tablets by mouth once daily. 90 tablet 3 05/04/2024 Active Start: 07-01-2022 End: 12-21-2022 take 0.5 tablet [...] mg M,W,F, Sat, SUN or as directed Zinc (20 sources) End: 02-23-2024 Zinc 50 mg tab Take 25 mg by mouth. 02/23/2024 Discontinued Zinc 50 mg tab T nirav 25 mg by mouth. Active Zinc 50 mg tab T nirav 25 mg by mouth. 0 Active Comment on above: Take 25 mg by mouth. Problems Active Problems Problem Classification Problem Date Documented Da te Episodic/Chronic Abdominal pain (10 sources) Epigastric pain; Translations: [Epigastric pain] 10-01-2023 Episodic Acute posthemorrhagic anemia (11 sources) Acute posthemorrhagic anemia; Translations: [Acute posthemorrhagic anemia] Onset: 5 10-07-2024 Episodic Adjustment disorders (1 source) Stress and adjustment reaction; Translations: [Adjustment disorder with other symptoms] 12-22-2022 Chronic Anxiety disorders (10 sources) Anxiety; Translations: [Anxiety disorder, unspecified] 01-05-2024 Chronic Cardiac dysrhythmias (20 sources) Atrial fibrillation; Translations: [Unspecified atrial fibrillation] Onset: 5 10-10-2023 Chronic Chronic kidney disease (19 sources) Chronic kidney disease stage 3B ; Translations: [Stage 3b chronic kidney disease (HCC)] Onset: 5 07-17-2024 Chronic Chronic kidney disease (1 source) Chronic kidney disease; Translations: [Stage 3b chronic kidney disease (HCC)] Onset: 5 Chronic ulcer of skin (13 sources) Pressure ulcer of right heel, stage 2; Translations: [Pressure ulcer, heel] Onset: 4 02-23-2024 Chronic Coagulation and hemorrhagic disorders (20 sources) Factor V deficiency; Translations: [Hereditary deficiency of other clotting factors] Onset: 3 Chronic Congestive heart failure; nonhypertensive (20 sources) Acute exacerbation of chronic congestive heart failure; Translations: [Heart failure, unspecified] Onset: 5 01-11-2024 Chronic Coronary atherosclerosis and other heart disease (10 sources) Subendocardial ischemia; 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-07-2024 Chronic Deficiency and other anemia (13 sources) Anemia; Translations: [Anemia, unspecified] 04-02-2024 Episodic Deficiency and other anemia (12 sources) Iron deficiency anemia; Translations: [Iron deficiency anemia, unspecified] 01-28-2024 Episodic Diabetes mellitus with complications (20 sources) Type 2 diabetes mellitus; Translations: [Type 2 diabetes mellitus with hyperglycemia] Onset: 3 Chronic Diabetes mellitus without complication (13 sources) Diabetes mellitus; Translations: [Type 2 diabetes mellitus without complications] Onset: 5 03-19-2024 Chronic Disorders of lipid metabolism (20 sources) Hyperlipidemia; Translations: [Hyperlipidemia, unspecified] Onset: 3 Chronic Esophageal disorders (20 sources) Gastroesophageal reflux disease; Translations: [Gastro-esophageal reflux disease without esophagitis] Onset: 5 03-19-2024 Chronic Esophageal disorders (8 sources) Esophageal disorders Essential hypertension (20 sources) Essential hypertension; Translations: [Essential (primary) hypertension] Onset: 3 Chronic Comment on above: ON MEDS Gangrene (13 sources) Atherosclerosis of arteries of the extremities; Translations: [Atherosclerosis of [place] arteries of extremities with gangrene, unspecified extremity] Onset: 5 04-12-2024 Chronic Gangrene (20 sources) Gangrenous disorder; Translations: [Gangrene, not elsewhere classified] Onset: 4 02-23-2024 Episodic Gastroduodenal ulcer (except hemorrhage) (20 sources) Ulcer of duodenum; Translations: [Duodenal ulcer, unspecified as acute or chronic, without hemorrhage or perforation] Onset: 5 04-17-2024 Chronic Gastroduodenal ulcer (except hemorrhage) (3 sources) Acute gastric ulcer; Translations: [Acute gastric ulcer without hemorrhage or perforation] Onset: 5 04-17-2024 Episodic Gastrointestinal hemorrhage (18 sources) Acute upper gastrointestinal hemorrhage; Translations: [Gastrointestinal hemorrhage, unspecified] Onset: 5 10-07-2024 Episodic Heart valve disorders (20 sources) Aortic valve disorder; Translations: [Nonrheumatic aortic valve disorder, unspecified] Onset: 5 04-23-2024 Chronic Immunizations and screening for infectious disease (9 sources) Patient encounter status; Translations: [Encounter for immunization] Episodic Infective arthritis and osteomyelitis (except that caused by tuberculosis or sexually transmitted disease) (15 sources) Acute osteomyelitis of ankle and/or foot; Translations: [Other acute osteomyelitis, right ankle and foot] Onset: 5 04-12-2024 Chronic Malaise and fatigue (20 sources) Asthenia; Translations: [Weakness] Onset: 4 02-23-2024 Episodic Nonspecific chest pain (12 sources) Chest pain; Translations: [Chest pain, unspecified] Onset: 5 11-14-2023 Episodic Occlusion or stenosis of precerebral arteries (20 sources) Carotid atherosclerosis; Translations: [Occlusion and stenosis of unspecified carotid artery] Onset: 3 Chronic Osteoarthritis (11 sources) Osteoarthritis; Translations: [Unspecified osteoarthritis, unspecified site] Onset: 4 03-08-2024 Chronic Other aftercare (20 sources) Long-term current use of anticoagulant; Translations: [detention (current) use of anticoagulants] 06-20-2024 Episodic Other aftercare (10 sources) Surgical follow-up; Translations: [Encounter for surgical aftercare following surgery on the circulatory system] 05-14-2024 Episodic Other aftercare (2 sources) Encounter for orthopedic aftercare following surgical amputation; Translations: [Encounter for orthopedic aftercare following surgical amputation] Onset: 5 Episodic Other aftercare (1 source) Encounter for surgical aftercare following surgery on the circulatory system; Translations: [Encounter for surgical aftercare following surgery on the circulatory system] Onset: 5 Episodic Other bone disease and musculoskeletal deformities (19 sources) History of amputation of right foot; Translations: [Acquired absence of right foot] Onset: 5 04-17-2024 Chronic Other circulatory disease (1 source) History of arterial bypass of lower limb artery; Translations: [Presence of other vascular implants and grafts] 04-17-2024 Chronic Other circulatory disease (19 sources) Disorder of carotid artery; Translations: [Disorder of arteries and arterioles, unspecified] 06-12-2024 Chronic Comment on above: s/p R CEA 2001 CTA-images reviewed, left ICA 76% stenosis with moderate calcification; right 73% stenosis, no significant calcification Other circulatory disease (1 source) Disorder of arteries and arterioles, unspecified; Translations: [Disorder of arteries and arterioles, unspecified] Onset: 5 Chronic Other circulatory disease (2 sources) History of transient ischemic attack; Translations: [Personal history of transient ischemic attack (TIA), and cerebral infarction without residual deficits] Episodic Other circulatory disease (10 sources) Elevated blood-pressure reading without diagnosis of hypertension; Translations: [Elevated blood-pressure reading, without diagnosis of hypertension] 01-27-2024 Episodic Other connective tissue disease (1 source) Cramp in lower limb; Translations: [Cramp and spasm] 01-11-2024 Episodic Other connective tissue disease (11 sources) Foot pain; Translations: [Pain in unspecified foot] 03-01-2024 Episodic Other connective tissue disease (12 sources) Spasm; Translations: [Other muscle spasm] 03-19-2024 Episodic Other connective tissue disease (10 sources) Pain in lower limb; Translations: [Pain in right leg] 01-21-2024 Episodic Other connective tissue disease (12 sources) Neuropathic pain; Translations: [Neuralgia and neuritis, unspecified] 01-28-2024 Episodic Comment on above: Right foot and ankle Other connective tissue disease (1 source) Other muscle spasm; Translations: [Other muscle spasm] Onset: Episodic Other connective tissue disease (1 source) Neuralgia and neuritis, unspecified; Translations: [Neuralgia and neuritis, unspecified] Onset: Episodic Other diseases of bladder and urethra (13 sources) Overactive bladder; Translations: [Overactive bladder] Chronic Other diseases of bladder and urethra (1 source) Overactive bladder; Translations: [Overactive bladder] Onset: Chronic Other ear and sense organ disorders (2 sources) Decreased hearing ; Translations: [Unspecified hearing loss, bilateral] 07-17-2024 Chronic Other gastrointestinal disorders (1 source) Irritable bowel syndrome without diarrhea; Translations: [Irritable bowel syndrome, unspecified] Onset: 5 Chronic Other gastrointestinal disorders (1 source) Irritable bowel syndrome with diarrhea; Translations: [Irritable bowel syndrome with diarrhea] Onset: Chronic Other gastrointestinal disorders (20 sources) Diarrhea; Translations: [Diarrhea, unspecified] 06-12-2024 Episodic Other gastrointestinal disorders (1 source) Other fecal abnormalities; Translations: [Other fecal abnormalities] Onset: Episodic Other hematologic conditions (1 source) History of anemia; Translations: [Personal history of diseases of the blood and blood-forming organs and certain disorders involving the immune mechanism] 07-17-2024 Episodic Other inflammatory condition of skin (1 source) Erythema; Translations: [Erythematous condition, unspecified] 01-11-2024 Episodic Other injuries and conditions due to external causes (1 source) Injury of toe of right foot; Translations: [Unspecified injury of right foot, subsequent encounter] Episodic Other liver diseases (20 sources) Steatosis of liver; Translations: [Fatty (change of) liver, not elsewhere classified] Onset: Chronic Other liver diseases (12 sources) Enzyme level - finding; Translations: [Transaminitis] [...] Chronic Other nutritional; endocrine; and metabolic disorders (10 sources) Body mass index 25-29 - overweight; Translations: [Overweight] 03-08-2024 Episodic Other skin disorders (2 sources) Foot callus; Translations: [Corns and callosities] Episodic Other skin disorders (1 source) Lesion of face; Translations: [Disorder of the skin and subcutaneous tissue, unspecified] 06-07-2023 Episodic Other upper respiratory disease (12 sources) Allergic rhinitis; Translations: [Allergic rhinitis, unspecified] 03-19-2024 Chronic Other upper respiratory disease (1 source) Allergic rhinitis, unspecified; Translations: [Allergic rhinitis, unspecified] Onset: 5 Chronic Other upper respiratory infections (3 sources) Acute sinusitis; Translations: [Other acute sinusitis] 06-07-2023 Episodic Yuridia-; endo-; and myocarditis; cardiomyopathy (except that caused by tuberculosis or sexually transmitted disease) (11 sources) Dilated cardiomyopathy; Translations: [Dilated cardiomyopathy] Onset: 4 01-27-2024 Chronic Peripheral and visceral atherosclerosis (20 sources) Peripheral vascular disease; Translations: [Peripheral vascular disease, unspecified] Onset: 4 Resolved: 5 06-07-2023 Chronic Comment on above: 01/2024 fem-pop bypas s with PTFE03/2024 revision jump graft from fem-pop bypass to distal PT with reverse GSV; 2 compartment fasciotomy Pleurisy; pneumothorax; pulmonary collapse (10 sources) Pleural effusion; Translations: [Pleural effusion, not [...] [Pain, unspecified] 01-13-2024 Episodic Residual codes; unclassified (3 sources) Other specified postprocedural states; Translations: [History of femoropopliteal bypass] Onset: 4 Episodic Respiratory failure; insufficiency; arrest (adult) (10 sources) Acute hypoxemic respiratory failure; Translations: [Acute respiratory failure with hypoxia] 01-11-2024 Episodic Superficial injury; contusion (13 sources) Hematoma of lower leg; Translations: [Contusion of unspecified lower leg, initial encounter] Onset: 5 03-21-2024 Episodic Thyroid disorders (20 sources) Subclinical hypothyroidism; Translations: [Other specified hypothyroidism] Onset: 3 Chronic Unclassified (1 source) Elevated alanine aminotransferase (ALT) level; Translations: [Elevated alanine aminotransferase (ALT) level] Onset: 4 Unclassified (1 source) Chronic atrial fibrillation, unspecified; Translations: [Chronic atrial fibrillation, unspecified] Onset: 5 Past or Other Problems Problem Classification Problem Date Documented Da te Episodic/Chronic Deficiency and other anemia (2 sources) Anemia, unspecified; Translations: [Anemia, unspecified type] Onset: 4 Episodic Deficiency and other anemia (1 source) Iron deficiency anemia, unspecified; Translations: [Iron deficiency anemia, unspecified] Onset: 4 Episodic Fluid and electrolyte disorders (15 sources) Hyponatremia; Translations: [Hypo-osmolality and hyponatremia] Onset: 5 10-11-2023 Episodic Heart valve disorders (20 sources) Heart murmur; Translations: [Cardiac murmur, unspecified] Onset: 3 Episodic Other aftercare (1 source) 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; Translations: [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] Onset: 5 Episodic Other connective tissue disease (1 source) Pain in right lower leg; Translations: [Pain in right lower leg] Onset: 5 Episodic Other gastrointestinal disorders (1 source) Diarrhea, unspecified; Translations: [Diarrhea, unspecified] Onset: 5 Episodic Other hematologic conditions (1 source) Personal history of diseases of the blood and blood-forming organs and certain disorders involving the immune mechanism; Translations: [History of anemia] Onset: 5 Episodic Other nutritional; endocrine; and metabolic disorders (1 source) Overweight; Translations: [Overweight] Onset: 4 Episodic Other screening for suspected conditions (not mental disorders or infectious disease) (20 sources) Prolonged QT interval; Translations: [Abnormal electrocardiogram [ECG] [EKG]] Onset: 4 01-28-2024 Episodic Residual codes; unclassified (20 sources) History of arterial bypass of lower limb artery; Translations: [Other specified postprocedural states] Onset: 4 02-23-2024 Episodic Comment on above: 01/19/[address] Lily Rojas 01/19/[address] Lily Rodgers LEG Skin and subcutaneous tissue infections (20 sources) Cellulitis; Translations: [Cellulitis, unspecified] Onset: 4 03-21-2024 Episodic Spondylosis; intervertebral disc disorders; other back problems (1 source) Thoracic back pain; Translations: [Dorsalgia, unspecified] 10-10-2023 Episodic Results Test Name Value Interpretation Reference Range Facility MR/PAT.ANEon 01-17-2025 MR/PAT.ANE Normal [facility] Basic Metabolic Profile (BMP )on 01-16-2025 BUN/CRE 24.0 RATIO High 02-18 [facility] Comment on above: Performed By: #### B TSPAT, L100.0500, L500.2500 ####[facility] [address] [place], [address] Calcium [Mass/Vol] 9.4 mg/dL Normal 7.6-11.0 [facility] Comment on above: Performed By: #### B TSPAT, L100.0500, L500.2500 ####[facility] [address] [place], [address] Chloride [Moles/Vol] 100 mmol/L Normal 98-108 [facility] Comment on above: Performed By: #### B TSPAT, L100.0500, L500.2500 ####[facility] [address] [place], [address] CO2 [Moles/Vol] 18.9 mmol/L Low 21.0-32.0 [facility] Comment on above: Performed By: #### B TSPAT, L100.0500, L500.2500 ####[facility] [address] [place], [address] Creatinine [Mass/Vol] 1.21 mg/dL High 0.70-1.20 [facility] Comment on above: Performed By: #### B TSPAT, L100.0500, L500.2500 ####[facility] [address] [place], [address] GAP 16 High 5-15 [facility] Comment on above: Performed By: #### B TSPAT, L100.0500, L500.2500 ####[facility] [address] [place], [address] GFR/1.73 sq M.predicted among non-blacks MDRD (S/P/Bld) [Vol rate/Area] 44 mL/min/{1.73_m2} Low >60 [facility] Comment on above: Result Comment: mL/m in/1.73m2 CKD-EPI Creatinine Equation (2020) Performed By: #### B TSPAT, L100.0500, L500.2500 ####[facility] [address] [place], [address] Glucose [Mass/Vol] 337 mg/dL High 70-99 [facility] Comment on above: Performed By: #### B TSPAT, L100.0500, L500.2500 ####[facility] [address] [place], [address] Potassium [Moles/Vol] 4.0 mmol/L Normal 3.3-5.1 [facility] Comment on above: Result Comment: Hemo lysis present, Results??could be affected.?? Performed By: #### B TSPAT, L100.0500, L500.2500 ####[facility] [address] [place], [address] Sodium [Moles/Vol] 135 mmol/L Normal 133-145 [facility] Comment on above: Performed By: #### B TSPAT, L100.0500, L500.2500 ####[facility] [address] [place], [address] Urea nitrogen [Mass/Vol] 29 mg/dL High 4-19 [facility] Comment on above: Performed By: #### B TSPAT, L100.0500, L500.2500 ####[facility] [address] [place], [address] CBC-Complete Blood Cnt No Di ffon 01-16-2025 Erythrocyte distribution width (RBC) [Ratio] 15.0 % High 11.6-14.6 [facility] Comment on above: Performed By: #### B TSPAT, L100.0500, L500.2500 ####[facility] [address] [place], [address] Hematocrit (Bld) [Volume fraction] 33.2 % Low 37-47 [facility] Comment on above: Performed By: #### B TSPAT, L100.0500, L500.2500 ####[facility] [address] [place], [address] Hemoglobin (Bld) [Mass/Vol] 11.2 g/dL Low 12.0-15.0 [facility] Comment on above: Performed By: #### B TSPAT, L100.0500, L500.2500 ####[facility] [address] [place], [address] MCH (RBC) [Entitic mass] 31.8 pg Normal 27.0-32.0 [facility] Comment on above: Performed By: #### B TSPAT, L100.0500, L500.2500 ####[facility] [address] [place], [address] MCHC (RBC) [Mass/Vol] 33.7 g/dL Normal 32-36 [facility] Comment on above: Performed By: #### B TSPAT, L100.0500, L500.2500 ####[facility] [address] [place], [address] MCV (RBC) [Entitic vol] 94.3 fL Normal 81-99 [facility] Comment on above: Performed By: #### B TSPAT, L100.0500, L500.2500 ####[facility] [address] [place], [address] Platelet mean volume (Bld) [Entitic vol] 11.7 fL Normal 6.2-12.0 [facility] Comment on above: Performed By: #### B TSPAT, L100.0500, L500.2500 ####[facility] [address] [place], [address] Platelets (Bld) [#/Vol] 188 10*3/uL Normal 150-450 [facility] Comment on above: Performed By: #### B TSPAT, L100.0500, L500.2500 ####[facility] [address] [place], [address] RBC (Bld) [#/Vol] 3.52 10*6/uL Low 4.2-5.4 [facility] Comment on above: Performed By: #### B TSPAT, L100.0500, L500.2500 ####[facility] [address] [place], [address] RDW SD 52.0 fl High 35.1-43.9 [facility] Comment on above: Performed By: #### B TSPAT, L100.0500, L500.2500 ####[facility] [address] [place], [address] WBC (Bld) [#/Vol] 4.2 10*3/uL Low 4.4-11.0 [facility] Comment on above: Performed By: #### B TSPAT, L100.0500, L500.2500 ####[facility] [address] [place], [address] CNPTyesha 01-16-2025 CNPN Telephone (INTWS) JAROD PRITCHARD ([id number]) 1940 F Date Time Provider Department 01/16/25 KIERRA SANTIAGO INTMWS During your visit today, we recorded the following information about you: Kisha Irizarry, RN 01/16/2025 11:57 AM Signed Pt reports she is at [facility] trying to refill metoprolol and [facility] informed her pcp discontinued this medication. Pt asking why did pcp cancel it- states she needs it. Reports she has 7 pills left. Per metoprolol on med list was discontinued by Ese Wright on 10/24/24. Pt states she has been taking it twice a day. I do not see anything in ov notes that states it should be discontinued. Please advise patient. [phone] Kierra Santiago MD 01/16/2025 8:07 PM Signed When patient was seen in September, it was documented that the metoprolol XL 50 had been stopped but another provide--that was why it was taken off her med list. But the 25 mg dose is still on the list. The following approved medication requests have been transmitted electronically. Requested Prescriptions Signed Prescriptions Disp Refills metoprolol succinate ER (TOPROL XL) 25 mg 24 hr tablet 180 tablet 3 Sig: Take 1 tablet by mouth two times a day. Authorizing Provider: KIERRA SANTIAGO MD Merillat, Elizabeth, MA 01/16/2025 8:28 PM Signed Patient was notified and we dug into records patient was admitted to ER 10/08 and cardio did consult and changed medication. Patient realized and remembered all that happening and will start 25 mg BID Olga Lidia Eubanks MA Allergies As of Date: 01/16/2025 Noted Allergy Reaction ACCUPRIL (QUINAPRIL) 04/14/2015 16 - Unknown CALAN (VERAPAMIL) 04/14/2015 16 - Unknown CYMBALTA (DULOXETINE) 03/01/2024 5 - Intolerance Comments: dizziness LOTENSIN (BENAZEPRIL HCL) 04/14/2015 16 - Unknown SULFA (SULFONAMIDE ANTIBIOTICS) 04/14/2015 16 - Unknown Date Reviewed: 10/24/2024 Reviewed by: Ese Wright MA - Fully Assessed Reason for Visit: Medication Problem [65] Order(s):metoprolol succinate ER (TOPROL XL) 25 mg 24 hr tabletTake 1 tablet by mouth two times a day.Disp: 180 tabletRfl: 3 Prescriptions as of 01/16/2025 - metoprolol succinate ER (TOPROL XL) 25 mg 24 hr tablet Take 1 tablet by mouth two times a day. - tiZANidine (ZANAFLEX) 4 mg tablet Take 1 tablet by mouth every 8 hours as needed. - glimepiride (AMARYL) 2 mg tablet Take 1 tablet by mouth two times a day. As directed - amLODIPine (NORVASC) 10 mg tablet Take 10 mg by mouth once daily. - losartan (COZAAR) 100 mg tablet Take 100 mg by mouth once daily. - potassium chloride ER (KLOR-CON) 20 mEq tablet Take 1 tablet by mouth two times a day. - pantoprazole DR (PROTONIX) 40 mg tablet Take 1 tablet by mouth every 12 hours. - clopidogrel (PLAVIX) 75 mg tablet Take 1 tablet by mouth once daily. - gabapentin (NEURONTIN) 100 mg capsule Take 1 capsule by mouth two times a day for 180 days. - oxybutynin ER (DITROPAN XL) 10 mg 24 hr tablet Take 1 tablet by mouth once daily. - fluticasone (FLONASE) 50 mcg/actuation nasal spray Use 2 Sprays in each nostril once daily. - simvastatin (ZOCOR) 80 mg tablet Take 1 tablet by mouth daily at bedtime. - warfarin (COUMADIN) 2 mg tablet Take 2 tablets by mouth once daily. - magnesium chloride 64 mg magnesium tab Take 2 tablets by mouth once daily. - furosemide (LASIX) 40 mg tablet Take 1 tablet by mouth once daily. - acetaminophen (TYLENOL) 500 mg tablet 1,000 mg. - ferrous sulfate 325 mg (65 mg iron) tablet Take 325 mg by mouth. 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] 07/01/2022 Bilateral carotid artery stenosis [I65.23] 03/15/2023 Elevated HDL [E78.89] 03/15/2023 Factor 5 Leiden mutation, heterozygous (HCC) [D*03/15/2023 Peripheral vascular disease, unspecified ([facility]) *06/07/2023 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 Medications Discontinued During This Encounter Prescriptions - metoprolol succinate ER (TOPROL XL) 25 mg 24 hr tablet (Discontinued) Take 25 mg by mouth two times a day. E (more content not included)... Normal [facility] Hemoglobin A1con 01-16-2025 HbA1c (Bld) [Mass fraction] 7.3 % High <=5.6 [facility] Comment on above: Result Comment: Norm al < 5.7 % Prediabetic 5.7 - 6.4 % Diabetic >or= 6.5 % Please note range changes. Performed By: #### L 501.9991 ####[facility] [id number] [place], [place], [address] Type AND Screen - PAT ONLYon 01-16-2025 Ab SCREEN GEL Negative Normal [facility] Comment on above: Order Comment: Ran peck for Laboratory Test PRE [id number] Performed By: #### B TSPAT, L100.0500, L500.2500 ####[facility] [id number] [place], [place], [address] MR/PAT.ANEon 01-07-2025 MR/PAT.ANE Normal [facility] Cardiology Visit Reporton Cardiology Visit Report Normal [facility] Basic metabolic 2000 panelon 10-31-2024 Anion gap [Moles/Vol] 14 mmol/L 8 - 15 mmol/L [facility] Calcium [Mass/Vol] 10.2 mg/dL 8.5 - 10. 2 mg/dL [facility] Chloride [Moles/Vol] 101 mmol/L 98 - 10 7 mmol/L [facility] CO2 [Moles/Vol] 23 mmol/L 22 - 30 mmol/L [facility] Creatinine [Mass/Vol] 0.96 mg/dL 0.58 - 0.96 mg/dL [facility] GFR/1.73 sq M.predicted among non-blacks MDRD (S/P/Bld) [Vol rate/Area] 58 mL/min/{1.73_m2} Low - PINF [facility] Comment on above: Estimated Glomerular Filtration Rate (eGFR) is calculated using the 2020 CKD-EPI creatinine equation. This equation utilizes serum creatinine, sex, and age as parameters. The creatinine assay has traceable calibration to isotope dilution-mass spectrometry. Refer to KDIGO guidelines for clinical interpretation. In patients with unstable renal function, e.g. those with acute kidney injury, the eGFR may not accurately reflect actual GFR. Glucose [Mass/Vol] 144 mg/dL High 74 - 99 mg/dL [facility] Comment on above: The [place] Diab[employer] Association (ADA) provides guidance for cutoff values for fasting glucose and random glucose. The ADA defines fasting as no caloric intake for at least 8 hours. Fasting plasma glucose results between 100 to 125 mg/dL indicate increased risk for diabetes (prediabetes). Fasting plasma glucose results greater than or equal to 126 mg/dL meet the criteria for diagnosis of diabetes. In the absence of unequivocal hyperglycemia, results should be confirmed by repeat testing. In a patient with classic symptoms of hyperglycemia or hyperglycemic crisis, random plasma glucose results greater than or equal to 200 mg/dL meet the criteria for diagnosis of diabetes. Reference: Standards of Medical Care in Diabetes 2016, [place] [employer]. Diabetes Care. 2016.39(Suppl 1). Interpretation and review of laboratory results Abnormal [facility] Potassium [Moles/Vol] 4.4 mmol/L 3.7 - 5.1 mmol/L [facility] Sodium [Moles/Vol] 138 mmol/L 136 - 144 mmol/L [facility] Urea nitrogen [Mass/Vol] 20 mg/dL 7 - 21 mg/dL [facility] MR/BMS.BVSon 10-31-2024 MR/BMS.BVS Normal [facility] Basic metabolic 2000 panelon 10-30-2024 Anion gap [Moles/Vol] 14 mmol/L Normal 8-15 [facility] Comment on above: Order Comment: Miguel cunningham Type: BLOOD SPECIMEN Ordering Facility: [facility] Address: [address] [place] [address] Performed By: #### T [facility], 75448-2 #### [facility] CLIA [id number] [address] [place] [address] [place] Calcium [Mass/Vol] 10.2 mg/dL Normal 8.5-10.2 [facility] Comment on above: Order Comment: Miguel cunningham Type: BLOOD SPECIMEN Ordering Facility: [facility] Address: [address] [place] [address] Performed By: #### T [facility], 06902-8 #### [facility] CLIA [id number] [address] [place] [address] [place] Chloride [Moles/Vol] 101 mmol/L Normal 98-107 [facility] Comment on above: Order Comment: Miguel cunningham Type: BLOOD SPECIMEN Ordering Facility: [facility] Address: [address] [place] [address] Performed By: #### T [facility], 66855-4 #### [facility] CLIA [id number] [address] [place] [address] [place] CO2 [Moles/Vol] 23 mmol/L Normal 22-30 [facility] Comment on above: Order Comment: Speci men Type: BLOOD SPECIMEN Ordering Facility: [facility] Address: [address] [place] [address] Performed By: #### T NIKIA, 20307-1 #### [facility] CLIA [id number] [address] [place] [address] [place] Creatinine [Mass/Vol] 0.96 mg/dL Normal 0.58-0.96 [facility] Comment on above: Order Comment: Speci men Type: BLOOD SPECIMEN Ordering Facility: [facility] Address: [address] [place] [address] Performed By: #### T NIKIA, 84376-2 #### [facility] CLIA [id number] [address] [place] [address] [place] Creatinine and Glomerular filtration rate.predicted panel (S/P/Bld) 58 mL/min/1.73m??? Low >=60 [facility] Comment on above: Order Comment: Speci men Type: BLOOD SPECIMEN Ordering Facility: [facility] Address: [address] [place] [address] Result Comment: Kimberley mated Glomerular Filtration Rate [...] accurately reflect actual GFR. Performed By: #### T NIKIA, 12582-4 #### [facility] CLIA [id number] [address] [place], [place] [id number] [place] Glucose [Mass/Vol] 144 mg/dL High 74-99 [facility] Comment on above: Order Comment: Speci men Type: BLOOD SPECIMEN Ordering Facility: [facility] Address: [address] [place] [address] Result Comment: The [place] Diabetes Association (ADA) provides guidance for cutoff values for fasting glucose and random glucose. The ADA defines fasting as no caloric intake for at least 8 hours. Fasting plasma glucose results between 100 to 125 mg/dL indicate increased risk for diabetes (prediabetes). Fasting plasma glucose results greater than or equal to 126 mg/dL meet the criteria for diagnosis of diabetes. In the absence of unequivocal hyperglycemia, results should be confirmed by repeat testing. In a patient with classic symptoms of hyperglycemia or hyperglycemic crisis, random plasma glucose results greater than or equal to 200 mg/dL meet the criteria for diagnosis of diabetes. Reference: Standards of Medical Care in Diabetes 2016, [place] [employer]. Diabetes Care. 2016.39(Suppl 1). Performed By: #### T CHADD, 41467-1 #### [facility] CLIA [id number] [address] [place] [address] [place] Potassium [Moles/Vol] 4.4 mmol/L Normal 3.7-5.1 [facility] Comment on above: Order Comment: Miguel cunningham Type: BLOOD SPECIMEN Ordering Facility: [facility] Address: [address] [place], [place] [id number] Performed By: #### T [facility], 38282-2 #### [facility] CLIA [id number] [address] [place] [address] [place] Sodium [Moles/Vol] 138 mmol/L Normal 136-144 [facility] Comment on above: Order Comment: Ana Mi men Type: BLOOD SPECIMEN Ordering Facility: [facility] Address: [address] [place] [address] Performed By: #### T [facility], 58321-0 #### [facility] CLIA [id number] [address] [place] [address] [place] Urea nitrogen [Mass/Vol] 20 mg/dL Normal 7-21 [facility] Comment on above: Order Comment: Ana Mi men Type: BLOOD SPECIMEN Ordering Facility: [facility] Address: [address] [place] [address] Performed By: #### T [facility], 63767-9 #### [facility] CLIA [id number] [address] [place] [address] [place] CBC panel Auto (Bld)on 10-30 Erythrocyte distribution width (RBC) [Ratio] 17.9 % High 11.5 - 15.0 % [facility] Hematocrit (Bld) [Volume fraction] 35.8 % Low 36.0 - 46.0 % [facility] Hemoglobin (Bld) [Mass/Vol] 11.2 g/dL Low 11.5 - 15.5 g/dL [facility] Interpretation and review of laboratory results Abnormal [facility] MCH (RBC) [Entitic mass] 31 pg 26.0 - 34.0 pg [facility] MCHC (RBC) [Mass/Vol] 31.3 g/dL 30.5 - 36.0 g/dL [facility] MCV (RBC) [Entitic vol] 99.2 fL 80.0 - 100.0 fL [facility] Nucleated RBC (Bld) [#/Vol] NINF [facility] Platelet mean volume (Bld) [Entitic vol] 12.3 fL 9.0 - 12.7 fL [facility] Platelets (Bld) [#/Vol] 285 10*3/uL [facility] RBC (Bld) [#/Vol] 3.61 10*6/uL Low 3.90 - 5.2 0 m/uL [facility] WBC (Bld) [#/Vol] 5.14 10*3/uL [facility] Erythrocyte distribution width (RBC) [Ratio] 17.9 % High 11.5-15.0 [facility] Comment on above: Order Comment: Speci men Type: BLOOD SPECIMEN Ordering Facility: [facility] Address: [address] [place] [address] Performed By: #### 5 8410-2 #### [facility] CLIA [id number] [address] [place] [address] [place] Hematocrit (Bld) [Volume fraction] 35.8 % Low 36.0-46.0 [facility] Comment on above: Order Comment: Speci men Type: BLOOD SPECIMEN Ordering Facility: [facility] Address: [address] [place] [address] Performed By: #### 5 8410-2 #### [facility] CLIA [id number] [address] [place] [address] [place] Hemoglobin (Bld) [Mass/Vol] 11.2 g/dL Low 11.5-15.5 [facility] Comment on above: Order Comment: Speci men Type: BLOOD SPECIMEN Ordering Facility: [facility] Address: [address] [place] [address] Performed By: #### 5 8410-2 #### [facility] CLIA [id number] [address] [place] [address] [place] MCH (RBC) [Entitic mass] 31.0 pg Normal 26.0-34.0 [facility] Comment on above: Order Comment: Speci men Type: BLOOD SPECIMEN Ordering Facility: [facility] Address: [address] [place] [address] Performed By: #### 5 8410-2 #### [facility] CLIA [id number] [address] [place] [address] [place] MCHC (RBC) [Mass/Vol] 31.3 g/dL Normal 30.5-36.0 [facility] Comment on above: Order Comment: Speci men Type: BLOOD SPECIMEN Ordering Facility: [facility] Address: [address] [place] [address] Performed By: #### 5 8410-2 #### [facility] CLIA [id number] [address] [place] [address] [place] MCV (RBC) [Entitic vol] 99.2 fL Normal 80.0-100.0 [facility] Comment on above: Order Comment: Speci men Type: BLOOD SPECIMEN Ordering Facility: [facility] Address: [address] [place] [address] Performed By: #### 5 8410-2 #### [facility] CLIA [id number] [address] [place] [address] [place] Nucleated RBC (Bld) [#/Vol] 10*3/uL Normal <0.01 [facility] Comment on above: Order Comment: Speci men Type: BLOOD SPECIMEN Ordering Facility: [facility] Address: [address] [place] [address] Performed By: #### 5 8410-2 #### [facility] CLIA [id number] [address] [place] [address] [place] Platelet mean volume (Bld) [Entitic vol] 12.3 fL Normal 9.0-12.7 [facility] Comment on above: Order Comment: Speci men Type: BLOOD SPECIMEN Ordering Facility: [facility] Address: [address] [place] [address] Performed By: #### 5 8410-2 #### [facility] CLIA [id number] [address] [place] [address] [place] Platelets (Bld) [#/Vol] 285 10*3/uL Normal 150-400 [facility] Comment on above: Order Comment: Speci men Type: BLOOD SPECIMEN Ordering Facility: [facility] Address: [address] [place] [address] Performed By: #### 5 8410-2 #### [facility] CLIA [id number] [address] [place] [address] [place] RBC (Bld) [#/Vol] 3.61 10*6/uL Low 3.90-5.20 [facility] Comment on above: Order Comment: Speci men Type: BLOOD SPECIMEN Ordering Facility: [facility] Address: [address] [place] [address] Performed By: #### 5 8410-2 #### [facility] CLIA [id number] [address] [place] [address] [place] WBC (Bld) [#/Vol] 5.14 10*3/uL Normal 3.70-11.00 [facility] Comment on above: Order Comment: Speci men Type: BLOOD SPECIMEN Ordering Facility: [facility] Address: [address] [place] [address] Performed By: #### 5 8410-2 #### [facility] CLIA [id number] [address] [place] [address] [place] CNPNon 10-29-2024 CNPN Telephone (INTMWS) JAROD PRITCHARD ([id number]) 1940 F Date Time Provider Department 10/29/24 KIERRA SANTIAGO INTLULU During your visit today, we recorded the following information about you: Yarelis Jenkins 10/29/2024 8:43 AM Signed Jarod is a patient of Kierra Santiago MD today she called [facility] regarding: Disp Refills Start End glimepiride (AMARYL) 2 mg tablet 90 tablet 3 02/23/2024 -- Sig: Take 1 tablet by mouth daily with breakfast. Check blood sugars daily, if remaining above 200 consistently in 2 to 4 weeks will increase the dose Sent to pharmacy as: glimepiride (AMARYL) 2 mg tablet Class: Normal Route: ORAL Order: [id number] E-Prescribing Status: Receipt confirmed by pharmacy (02/23/2024 10:07 AM EDT) Per patient, she is out of medication. However, she stated that she called [facility] and was told that they cannot fill this. Patient stated at times when BS is over 200, she does take an extra pill, she is not sure if this is the reason. She is requesting the office call the Pharmacy to check on this. Please call her back. Patient has been identified by name and birthdate. Duration of symptoms: N/A Person calling: self Call patient at: at home Was an appointment scheduled: No Closing statement: Results or non-symptom based questions: Thank you for calling [facility], your call will be returned within the next business day. Olga Lidia Finch MA 10/29/2024 10:14 AM Signed Tried calling patient to verify how long she has been doing glimepiride 2 mg BID? Per instructions she was to call in and let us know if BS were increased so we could increase. This is probably why she is out of medication since we were unaware she increased and now needs rx resent. Please verify what BS readings were when taken BID? JEFERSON Arora Krista, LPN 10/30/2024 4:41 PM Signed Pt reports she usually took one tablet a day. Pt reports if blood sugars were around 180 or above she would usually take 2 tabs. Pt did not realize she was supposed to call in if her sugars were around 200 or higher. VERNON Holly Liza D, MD 10/30/2024 8:58 PM Signed The following approved medication requests have been transmitted electronically. Requested Prescriptions Signed Prescriptions Disp Refills glimepiride (AMARYL) 2 mg tablet 180 tablet 1 Sig: Take 1 tablet by mouth two times a day. As directed Authorizing Provider: KIERRA SANTIAGO MD Noted needed 2 per day some days. Ngozi Rios LPN 10/31/2024 8:53 AM Signed Patient notified and verbalized understanding. Ngozi Rios LPN Allergies As of Date: 10/29/2024 Noted Allergy Reaction ACCUPRIL (QUINAPRIL) 04/14/2015 16 - Unknown CALAN (VERAPAMIL) 04/14/2015 16 - Unknown CYMBALTA (DULOXETINE) 03/01/2024 5 - Intolerance Comments: dizziness LOTENSIN (BENAZEPRIL HCL) 04/14/2015 16 - Unknown SULFA (SULFONAMIDE ANTIBIOTICS) 04/14/2015 16 - Unknown Date Reviewed: 10/24/2024 Reviewed by: Ese Wright MA - Fully Assessed Reason for Visit: Medication Problem [65] Cmt: Glimepiride Order(s):glimepiride (AMARYL) 2 mg tabletTake 1 tablet by mouth two times a day. As directedDisp: 180 tabletRfl: 1 Prescriptions as of 10/31/2024 - glimepiride (AMARYL) 2 mg tablet Take 1 tablet by mouth two times a day. As directed - amLODIPine (NORVASC) 10 mg tablet Take 10 mg by mouth once daily. - losartan (COZAAR) 100 mg tablet Take 100 mg by mouth once daily. - metoprolol succinate ER (TOPROL XL) 25 mg 24 hr tablet Take 25 mg by mouth two times a day. - potassium chloride ER (KLOR-CON) 20 mEq tablet Take 1 tablet by mouth two times a day. - pantoprazole DR (PROTONIX) 40 mg tablet Take 1 tablet by mouth every 12 hours. - clopidogrel (PLAVIX) 75 mg tablet Take 1 tablet by mouth once daily. - gabapentin (NEURONTIN) 100 mg capsule Take 1 capsule by mouth two times a day for 180 days. - oxybutynin ER (DITROPAN XL) 10 mg 24 hr tablet Take 1 tablet by mouth once daily. - fluticasone (FLONASE) 50 mcg/actuation nasal spray Use 2 Sprays in each nostril once daily. - simvastatin (ZOCOR) 80 mg tablet Take 1 tablet by mouth daily at bedtime. - tiZANidine (ZANAFLEX) 4 mg tablet Take 1 tablet by mouth every 8 hours as needed. - warfarin (COUMADIN) 2 mg tablet Take 2 tablets by mouth once daily. - magnesium chloride 64 mg magnesium tab Take 2 tablets by mouth once daily. - furosemide (LASIX) 40 mg tablet Take 1 tablet by mouth once daily. - acetaminophen (TYLENOL) 500 mg tablet 1,000 mg. - ferrous sulfate 325 mg (65 mg iron) tablet Take 325 mg by mouth. Problem List As Of Date 10/29/2024 Noted Resolved Hyperlipidemia [E78.5] 07/01/2022 Primary hypertension [I10] 07/01/2022 Carotid atherosclerosis [I65.29] 07/01/2022 Subclinical hypothyroidism [E03 (more content not included)... Normal [facility] CNOVon 10-24-2024 CNOV Office Visit (INTMWS ) JAROD PRITCHARD ([id number]) 1940 F Date Time Provider Department 10/24/24 10:00 AM KIERRA SANTIAGO INTMWS During your visit today, we recorded the following information about you: Pulse Blood pressure Weight Height 72/minute 120/60 67.3 kg 1.588 m Kierra Santiago MD 01/16/2025 8:04 PM Addendum This note was created using Qwiqqriter. Subjective Jarod Pritchard is a 84 year old female. SUBJECTIVE: PAST MEDICAL HISTORY Diagnosis Date Atrial fibrillation (HCC) Diabetes mellitus (HCC) Factor V deficiency (HCC) GERD (gastroesophageal reflux disease) TIA (transient ischemic attack) 2001 Current Outpatient Medications Medication Sig amLODIPine (NORVASC) 10 mg tablet Take 10 mg by mouth once daily. losartan (COZAAR) 100 mg tablet Take 100 mg by mouth once daily. metoprolol succinate ER (TOPROL XL) 25 mg 24 hr tablet Take 25 mg by mouth two times a day. clopidogrel (PLAVIX) 75 mg tablet Take 1 tablet by mouth once daily. gabapentin (NEURONTIN) 100 mg capsule Take 1 capsule by mouth two times a day for 180 days. oxybutynin ER (DITROPAN XL) 10 mg 24 hr tablet Take 1 tablet by mouth once daily. fluticasone (FLONASE) 50 mcg/actuation nasal spray Use 2 Sprays in each nostril once daily. simvastatin (ZOCOR) 80 mg tablet Take 1 tablet by mouth daily at bedtime. warfarin (COUMADIN) 2 mg tablet Take 2 tablets by mouth once daily. magnesium chloride 64 mg magnesium tab Take 2 tablets by mouth once daily. furosemide (LASIX) 40 mg tablet Take 1 tablet by mouth once daily. acetaminophen (TYLENOL) 500 mg tablet 1,000 mg. ferrous sulfate 325 mg (65 mg iron) tablet Take 325 mg by mouth. tiZANidine (ZANAFLEX) 4 mg tablet Take 1 tablet by mouth every 8 hours as needed. glimepiride (AMARYL) 2 mg tablet Take 1 tablet by mouth two times a day. As directed potassium chloride ER (KLOR-CON) 20 mEq tablet Take 1 tablet by mouth two times a day. pantoprazole DR (PROTONIX) 40 mg tablet Take 1 tablet by mouth every 12 hours. No current facility-administered medications for this visit. Review of Systems Objective BP 120/60 Pulse 72 Ht 158.8 cm (5' 2.5) Wt 67.3 kg (148 lb 5.9 oz) BMI 26.70 kg/m? Last 5 Encounter Wt Readings: Date: Wt: 10/24/2024 67.3 kg (148 lb 5.9 oz) 07/17/2024 64 kg (141 lb 1.5 oz) 06/04/2024 64.9 kg (143 lb) 04/23/2024 64.9 kg (143 lb) 02/23/2024 62.9 kg (138 lb 10.7 oz) No waist measurement recorded Estimated body mass index is 26.7 kg/m? as calculated from the following: Height as of this encounter: 158.8 cm (5' 2.5). Weight as of this encounter: 67.3 kg (148 lb 5.9 oz). Last 5 Encounter BP Readings: Date: BP: 10/24/2024 120/60 07/17/2024 131/65 06/04/2024 142/64 05/08/2024 117/54 04/23/2024 178/56 Physical Exam Constitutional: Appearance: Normal appearance. HENT: Head: Normocephalic. Eyes: Conjunctiva/sclera: Conjunctivae normal. Cardiovascular: Rate and Rhythm: Normal rate and regular rhythm. Heart sounds: Normal heart sounds. Pulmonary: Effort: Pulmonary effort is normal. Breath sounds: Normal breath sounds. Musculoskeletal: Right lower le+ Edema present. Left lower leg: No edema. Skin: General: Skin is warm and dry. Neurological: General: No focal deficit present. Mental Status: She is alert and oriented to person, place, and time. Psychiatric: Mood and Affect: Mood normal. Behavior: Behavior normal. Thought Content: Thought content normal. Judgment: Judgment normal. Assessment and Plan ASSESSMENT AND PLAN # Anemia, unspecified type (D64.9) - Recent hospitalization due to significant anemia with hemoglobin dropping to 6.5 g/dL, requiring transfusion of 2 units of blood to raise hemoglobin to 8 g/dL. - Ordered follow-up CBC to monitor hemoglobin levels; patient will return for lab draw after tomorrow. # Acute gastric ulcer, unspecified whether gastric ulcer hemorrhage or perforation present (K25.3) # Duodenal ulcer (K26.9) - Recent endoscopy by Dr. Giron revealed a bleeding gastric ulcer, which was cauterized. - Patient had two episodes of gastrointestinal bleeding; no follow-up appointment scheduled with gastroenterology. - Advised patient to contact Dr. Giron's office to schedule a follow-up appointment. - Refilled Protonix with 3 refills. # Type 2 diabetes mellitus with diabetic polyneuropathy, without long-term current use of insulin (HCC) (E11.42) - Blood glucose levels generally well-controlled; recent spike attributed to excessive intake of dried fruit. - Advised patient to maintain a consistent diet to avoid fluctuations in blood glucose levels. # Stage 3b chronic kidney disease (HCC) (N18.32) - Kidney function stable during recent hospitalization. - Will monitor renal function with upcoming lab work. # Chronic atrial fibrillation (HCC) (I48.20) # Fac (more content not included)... Normal [facility] Absolute lymphocyte countOrd ered By: Shaan Monae on 10-10-2024 Lymphocytes Auto (Unsp spec) [#/Vol] 0.72 10*3/uL Low 0.83-4.51 [facility] Absolute neutrophil countOrd ered By: Shaan Monae on 10-10-2024 Neutrophils (Bld) [#/Vol] 4.6 10*3/uL 2.0-7.7 [facility] Anion gap in Serum or Plasma Ordered By: Shaan Moane on 10-10-2024 Anion gap [Moles/Vol] 11 mmol/L 5-15 [facility] Automated lymphocyte count a s percentage of total leukocytesOrdered By: Shaan Monae on 10-10-2024 Lymphocytes/100 WBC Auto (Unsp spec) 12.0 % Low 19-41 [facility] BUN/creatinine ratioOrdered By: Shaan Monae on 10-10-2024 Urea nitrogen/Creatinine [Mass ratio] 15.4 mg/mg 10-20 [facility] Basic Metabolic Profile (BMP )on 10-10-2024 BUN/CRE 15.4 RATIO Normal - [facility] Comment on above: Performed By: #### L 500.2500, L100.0100 ####[facility] [address] [place], [address] Calcium [Mass/Vol] 8.9 mg/dL Normal 7.6-11.0 [facility] Comment on above: Performed By: #### L 500.2500, L100.0100 ####[facility] [address] [place], [address] Chloride [Moles/Vol] 106 mmol/L Normal 98-108 [facility] Comment on above: Performed By: #### L 500.2500, L100.0100 ####[facility] [address] [place], [address] CO2 [Moles/Vol] 22.2 mmol/L Normal 21.0-32.0 [facility] Comment on above: Performed By: #### L 500.2500, L100.0100 ####[facility] [address] [place], [address] Creatinine [Mass/Vol] 0.93 mg/dL Normal 0.70-1.20 [facility] Comment on above: Performed By: #### L 500.2500, L100.0100 ####[facility] [address] [place], [address] ECRCL 41.88 ml/min Low 50-250 [facility] Comment on above: Performed By: #### L 500.2500, L100.0100 ####[facility] [address] [place], [address] GAP 11 Normal 5-15 [facility] Comment on above: Performed By: #### L 500.2500, L100.0100 ####[facility] [address] [place], [address] GFR/1.73 sq M.predicted among non-blacks MDRD (S/P/Bld) [Vol rate/Area] 60 mL/min/{1.73_m2} Normal >60 [facility] Comment on above: Result Comment: mL/m in/1.73m2 CKD-EPI Creatinine Equation (2020) Performed By: #### L 500.2500, L100.0100 ####[facility] [address] [place], [address] Glucose [Mass/Vol] 129 mg/dL High 70-99 [facility] Comment on above: Performed By: #### L 500.2500, L100.0100 ####[facility] [address] [place], [address] Potassium [Moles/Vol] 3.5 mmol/L Normal 3.3-5.1 [facility] Comment on above: Performed By: #### L 500.2500, L100.0100 ####[facility] [address] [place], [address] Sodium [Moles/Vol] 139 mmol/L Normal 133-145 [facility] Comment on above: Performed By: #### L 500.2500, L100.0100 ####[facility] [address] [place], [address] Urea nitrogen [Mass/Vol] 14 mg/dL Normal 4-19 [facility] Comment on above: Performed By: #### L 500.2500, L100.0100 ####[facility] [address] [place], [address] Basophil percentageOrdered B y: Shaan Monae on 10-10-2024 Basophils/100 WBC (Bld) 0.3 % 0-1 [facility] Bedside Glucoseon 10-10-2024 FINGERSTICK GLU 126 mg/dL High 74-106 [facility] Comment on above: Result Comment: LEVI GEMENT OF PATIENT CARE PER NURSING PROTOCOL Performed By: #### L 501.080 ####[facility] [address] [place], [address] FINGERSTICK GLU 129 mg/dL High 74-106 [facility] Comment on above: Result Comment: LEVI GEMENT OF PATIENT CARE PER NURSING PROTOCOL Performed By: #### L 501.080 ####[facility] [address] [place], [address] FINGERSTICK GLU 133 mg/dL High 74-106 [facility] Comment on above: Result Comment: LEVI GEMENT OF PATIENT CARE PER NURSING PROTOCOL Performed By: #### L 501.080 ####[facility] [address] [place], [address] Blood manual differential co mment interpretation (narrative result)Ordered By: Shaan Monae on 10-10-2024 Manual differential comment Warren (Bld) [Interp] SCANNED [facility] Blood polychromasia detectio n by light microscopyOrdered By: Shaan Monae on 10-10-2024 Polychromasia LM Ql (Bld) 1+ [facility] CBC W/Diff, Automatedon 09-30 ACANTHOCYTE RARE Normal [facility] Comment on above: Performed By: #### L 500.2500, L100.0100 ####[facility] [address] [place], [address] Anisocytosis Ql (Bld) 2+ Normal [facility] Comment on above: Performed By: #### L 500.2500, L100.0100 ####[facility] [address] [place], [address] BASO STIPPLING 1+ Normal [facility] Comment on above: Performed By: #### L 500.2500, L100.0100 ####[facility] [address] [place], [address] OVALOCYTE 1+ Normal [facility] Comment on above: Performed By: #### L 500.2500, L100.0100 ####[facility] [address] [place], [address] PLT MORPH ADEQ Normal [facility] Comment on above: Performed By: #### L 500.2500, L100.0100 ####[facility] [address] [place], [address] POLYCHROMASIA 1+ Normal [facility] Comment on above: Performed By: #### L 500.2500, L100.0100 ####[facility] [address] [place], [address] SMEAR COMMENT SCANNED Normal [facility] Comment on above: Performed By: #### L 500.2500, L100.0100 ####[facility] [address] [place], [address] Carbon dioxide, total [Moles /volume] in Central venous bloodOrdered By: Shaan Monae on 10-10-2024 CO2 [Moles/Vol] 22.2 mmol/L 21.0-32.0 [facility] Chloride assayOrdered By: Blanco Monae on 10-10-2024 Chloride [Moles/Vol] 106 mmol/L 98-108 [facility] Eosinophil percentageOrdered By: Shaan Monae on 10-10-2024 Eosinophils/100 WBC (Bld) 1.3 % 0-5 [facility] Erythrocyte basophilic stipp ling detectionOrdered By: Shaan Monae on 10-10-2024 Basophilic stippling LM Ql (Bld) 1+ [facility] Erythrocyte distribution wid th ratioOrdered By: Shaan Monae on 10-10-2024 Erythrocyte distribution width (RBC) [Ratio] 21.8 % High 11.6-14.6 [facility] Erythrocyte distribution wid th standard deviationOrdered By: Shaan Monae on 10-10-2024 Erythrocyte distribution width (RBC) [Ratio] 75.9 fl High 35.1-43.9 [facility] Glomerular filtration rate ( GFR) estimation/1.73 sq m using serum, plasma, or whole bOrdered By: Shaan Monae on 10-10-2024 GFR/1.73 sq M.predicted among non-blacks MDRD (S/P/Bld) [Vol rate/Area] 60 mL/min/{1.73_m2} >60 [facility] Comment on above: mL/min/1.73m2 CKD-EP I Creatinine Equation (2020) [facility] deOrdered By: Shaan Monae on 10-10-2024 Glucose [Mass/Vol] 126 mg/dL High 74-106 [facility] Comment on above: MANAGEMENT OF PATIEN T CARE PER NURSING PROTOCOL Hematocrit Auto (Bld) [Volum e fraction]Ordered By: Sahan Monae on 10-10-2024 Hematocrit (Bld) [Volume fraction] 24.1 % Low 37-47 [facility] Hemoglobin measurementOrdere d By: Shaan Monae on 10-10-2024 Hemoglobin (Bld) [Mass/Vol] 7.8 g/dL Low 12.0-15.0 [facility] Immature granulocytes/100 WB C Auto (Bld)Ordered By: Shaan Monae on 10-10-2024 Immature granulocytes/100 WBC (Bld) 0.300 % 0.0-0.9 [facility] Comment on above: IG% - Immature Granu locytes (promyelocytes, myelocytes and metamyelocytes) > 1% indicates that a LEFT SHIFT is Present. Laboratory - Hematology and Cell countsOrdered By: Shaan Monae on 10-10-2024 Anisocytosis Ql (Bld) 2+ [facility] MCV (mean corpuscular volume ) determinationOrdered By: Shaan Monae on 10-10-2024 MCV (RBC) [Entitic vol] 94.9 fL 81-99 [facility] Mean corpuscular hemoglobin (MCH) determinationOrdered By: Shaan Monae on 10-10-2024 MCH (RBC) [Entitic mass] 30.7 pg 27.0-32.0 [facility] Mean corpuscular hemoglobin concentration (MCHC) determinationOrdered By: Shaan Monae on 10-10-2024 MCHC (RBC) [Mass/Vol] 32.4 g/dL 32-36 [facility] Mean platelet volume determi nationOrdered By: Shaan Monae on 10-10-2024 Platelet mean volume (Bld) [Entitic vol] 10.2 fL 6.2-12.0 [facility] Monocyte percentageOrdered B y: Shaan Monae on 10-10-2024 Monocytes/100 WBC (Bld) 9.6 % 0-10 [facility] Neutrophil percentageOrdered By: Shaan Monae on 10-10-2024 Neutrophils/100 WBC (Bld) 76.5 % High 47-70 [facility] Nucleated red blood cell per centageOrdered By: Shaan Monae on 10-10-2024 Nucleated RBC/100 WBC (Bld) [Ratio] 0.3 % 0-5 [facility] Ovalocyte detectionOrdered B y: Shaan Monae on 10-10-2024 Ovalocytes LM Ql (Bld) 1+ [facility] Platelet countOrdered By: Blanco Monae on 10-10-2024 Platelets (Bld) [#/Vol] 206 10*3/uL 150-450 [facility] Platelet morphologyOrdered B y: Shaan Monae on 10-10-2024 Platelet morphology finding Nom (Bld) ADEQ [facility] Potassium measurement (mass/ volume)Ordered By: Shaan Monae on 10-10-2024 Potassium (Unsp spec) [Mass/Vol] 3.5 mmol/L 3.3-5.1 [facility] RBC Auto (Bld) [#/Vol]Ordere d By: Shaan Monae on 10-10-2024 RBC (Bld) [#/Vol] 2.54 10*6/uL Low 4.2-5.4 [facility] Serum creatinine measurement (mass/volume)Ordered By: Shaan Monae on 10-10-2024 Creatinine [Mass/Vol] 0.93 mg/dL 0.70-1.20 [facility] Serum glucose measurement (m ass/volume)Ordered By: Shaan Monae on 10-10-2024 Glucose [Mass/Vol] 129 mg/dL High 70-99 [facility] Serum or plasma calcium walker urement (mass/volume)Ordered By: Shaan Monae on 10-10-2024 Calcium [Mass/Vol] 8.9 mg/dL 7.6-11.0 [facility] Serum or plasma urea nitroge n measurement (mass/volume)Ordered By: Shaan Monae on 10-10-2024 Urea nitrogen [Mass/Vol] 14 mg/dL 4-19 [facility] Sodium levelOrdered By: Shaan Monae on 10-10-2024 Sodium [Moles/Vol] 139 mmol/L 133-145 [facility] White blood cell (WBC) count Ordered By: Shaan Monae on 10-10-2024 WBC (Bld) [#/Vol] 6.0 10*3/uL 4.4-11.0 [facility] 12 Lead EKGon 10-09-2024 12 Lead EKG Normal [facility] Activated partial thrombopla stin time (aPTT) in platelet poor plasma by coagulation aOrdered By: Enrique Browne on 10-09-2024 aPTT Coag (PPP) [Time] 43.4 s High 24.1-36.2 [facility] Basic Metabolic Profile (BMP )on 10-09-2024 BUN/CRE 20.5 RATIO High 10-20 [facility] Comment on above: Performed By: #### L 500.2500, L300.4310, L300.3900, L100.0100 ####[facility] [address] [place], [address] Calcium [Mass/Vol] 9.0 mg/dL Normal 7.6-11.0 [facility] Comment on above: Performed By: #### L 500.2500, L300.4310, L300.3900, L100.0100 ####[facility] [address] [place], [address] Chloride [Moles/Vol] 108 mmol/L Normal 98-108 [facility] Comment on above: Performed By: #### L 500.2500, L300.4310, L300.3900, L100.0100 ####[facility] [address] [place], [address] CO2 [Moles/Vol] 20.2 mmol/L Low 21.0-32.0 [facility] Comment on above: Performed By: #### L 500.2500, L300.4310, L300.3900, L100.0100 ####[facility] [address] [place], [address] Creatinine [Mass/Vol] 0.98 mg/dL Normal 0.70-1.20 [facility] Comment on above: Performed By: #### L 500.2500, L300.4310, L300.3900, L100.0100 ####[facility] [address] [place], [address] ECRCL 39.67 ml/min Low 50-250 [facility] Comment on above: Performed By: #### L 500.2500, L300.4310, L300.3900, L100.0100 ####[facility] [address] [place], [address] GAP 12 Normal 5-15 [facility] Comment on above: Performed By: #### L 500.2500, L300.4310, L300.3900, L100.0100 ####[facility] [address] [place], [address] GFR/1.73 sq M.predicted among non-blacks MDRD (S/P/Bld) [Vol rate/Area] 57 mL/min/{1.73_m2} Low >60 [facility] Comment on above: Result Comment: mL/m in/1.73m2 CKD-EPI Creatinine Equation (2020) Performed By: #### L 500.2500, L300.4310, L300.3900, L100.0100 ####[facility] [address] [place], [address] Glucose [Mass/Vol] 132 mg/dL High 70-99 [facility] Comment on above: Performed By: #### L 500.2500, L300.4310, L300.3900, L100.0100 ####[facility] [address] [place], [address] Potassium [Moles/Vol] 3.6 mmol/L Normal 3.3-5.1 [facility] Comment on above: Performed By: #### L 500.2500, L300.4310, L300.3900, L100.0100 ####[facility] [address] [place], [address] Sodium [Moles/Vol] 141 mmol/L Normal 133-145 [facility] Comment on above: Performed By: #### L 500.2500, L300.4310, L300.3900, L100.0100 ####[facility] [address] [place], [address] Urea nitrogen [Mass/Vol] 20 mg/dL High 4-19 [facility] Comment on above: Performed By: #### L 500.2500, L300.4310, L300.3900, L100.0100 ####[facility] [address] [place], [address] Bedside Glucoseon 10-09-2024 FINGERSTICK GLU 132 mg/dL High 74-106 [facility] Comment on above: Result Comment: LEVI GEMENT OF PATIENT CARE PER NURSING PROTOCOL Performed By: #### L 501.080 ####[facility] [address] [place], [address] FINGERSTICK GLU 123 mg/dL High 74-106 [facility] Comment on above: Result Comment: LEVI GEMENT OF PATIENT CARE PER NURSING PROTOCOL Performed By: #### L 501.080 ####[facility] [address] [place], [address] FINGERSTICK GLU 121 mg/dL High 74-106 [facility] Comment on above: Result Comment: LEVI GEMENT OF PATIENT CARE PER NURSING PROTOCOL Performed By: #### L 501.080 ####[facility] [address] [place], [address] FINGERSTICK GLU 103 mg/dL Normal 74-106 [facility] Comment on above: Result Comment: LEVI GEMENT OF PATIENT CARE PER NURSING PROTOCOL Performed By: #### L 501.080 ####[facility] [address] [place], [address] CBC W/Diff, Automatedon - 0 MACROCYTOSIS 1+ Normal [facility] Comment on above: Performed By: #### L 500.2500, L300.4310, L300.3900, L100.0100 ####[facility] [address] [place], [address] MICROCYTIC 1+ Normal [facility] Comment on above: Performed By: #### L 500.2500, L300.4310, L300.3900, L100.0100 ####[facility] [address] [place], [address] Anisocytosis Ql (Bld) 2+ Normal [facility] Comment on above: Performed By: #### L 500.2500, L300.4310, L300.3900, L100.0100 ####[facility] [address] [place], [address] POLYCHROMASIA 1+ Normal [facility] Comment on above: Performed By: #### L 500.2500, L300.4310, L300.3900, L100.0100 ####[facility] [address] [place], [address] SMEAR COMMENT SCANNED Normal [facility] Comment on above: Performed By: #### L 500.2500, L300.4310, L300.3900, L100.0100 ####[facility] [address] [place], [address] EGD Reporton 10-09-2024 EGD Report Normal [facility] Electrocardiogram reportOrde red By: Roly Herrera on 10-09-2024 EKG study [facility] [address] [place] [address] 12 Lead EKG 10/08/24 0758 MR#: [id number] Acct: [id number] Name: JAROD PRITCHARD Rep #:[id number] : 1940 83 From: Roly trejo MD Attending Dr: Dr. Shaan Monae DO Status: ADM IN Ordering Dr: Enrique Browne MD Date: 09/30 Location: [facility] Sex: F C Admitted: 10/07/24 Test Reason : GI BEED Blood Pressure : */* mmHG Vent. Rate : 61 BPM Atrial Rate : 625 BPM P-R Int : * ms QRS Dur : 92 ms QT Int : 472 ms P-R-T Axes : * -34 40 degrees QTcB Int : 475 ms sinus bardycardia Left axis deviation ST & T wave abnormality, consider lateral ischemia Abnormal ECG When compared with ECG of 08-Oct-2024 05:27, Current undetermined rhythm precludes rhythm comparison, needs review Nonspecific T wave abnormality now evident in Inferior leads Confirmed by Roly Herrera ([id number]), editor publications [employer] ADAMES ([id number]) on 10/09/2024 11:09:08 AM Referred By: JAVIER Confirmed By: Roly Herrera 10/09/24 1109 Date _ Roly Herrera MD CC: Dr. Enrique Browne MD; Dr. Shaan Monae DO; Dr. Kierra Santiago MD ~ Signed [facility] Work Phone: EKG study [facility] [address] [place] [address] 12 Lead EKG 10/09/24 0416 MR#: [id number] Acct: [id number] Name: JAROD PRITCHARD Rep #:[id number] : 1940 83 From: Roly trejo MD Attending Dr: Dr. Shaan Monae DO Status: ADM IN Ordering Dr: Roly Herrera MD Date: 10/08/24 Location: U Sex: F C Admitted: 10/07/24 Test Reason : AM EKG Blood Pressure : */* mmHG Vent. Rate : 56 BPM Atrial Rate : * BPM P-R Int : * ms QRS Dur : 86 ms QT Int : 460 ms P-R-T Axes : * -53 20 degrees QTcB Int : 443 ms sinus bradycardia, PVC Left axis deviation Septal infarct , age undetermined Abnormal ECG When compared with ECG of 08-Oct-2024 07:58, MANUAL COMPARISON REQUIRED DATA IS UNCONFIRMED Confirmed by Roly Herrera ([id number]), editor publications [employer] ADAMES ([id number]) on 10/09/2024 11:08:14 AM Referred By: TONI Confirmed By: Roly Herrera 10/09/24 1108 Date _ Roly Herrera MD CC: Dr. Shaan Monae DO; Dr. Kierra Santiago MD; Dr. Roly Herrera MD ~ Signed [facility] Work Phone: EKG study [facility] Cardi[facility] [address] [place] [address] 12 Lead EKG 10/07/249 MR#: [id number] Acct: [id number] Name: JAROD PRITCHARD Rep #:[id number] : 1940 83 From: Roly trejo MD Attending Dr: Dr. Shaan Monae DO Status: ADM IN Ordering Dr: Matheus Fabian MD Date: 10/07/24 Location: [facility] Sex: F C Admitted: 10/07/24 Test Reason : SOB Blood Pressure : */* mmHG Vent. Rate : 67 BPM Atrial Rate : * BPM P-R Int : * ms QRS Dur : 88 ms QT Int : 446 ms P-R-T Axes : * -42 108 degrees QTcB Int : 471 ms Normal sinus rhythm Left axis deviation Cannot rule out Anterior infarct (cited on or before 23-Sep-2023) ST & T wave abnormality, consider lateral ischemia Abnormal ECG Confirmed by Roly Herrera ([id number]), editor publications [employer] ADAMES ([id number]) on 10/09/2024 6:16:14 AM Referred By: Confirmed By: Roly Herrera 10/09/24615 Date _ Roly Herrera MD CC: Dr. Matheus Fabian MD; Dr. Shaan Monae DO; Dr. Kierra Santiago MD ~ Signed [facility] Work Phone: International normalized rat io (INR) calculationOrdered By: Enrique Browne on 10-09-2024 INR Coag (Bld) [Relative time] 1.9 {INR} [facility] MR/POSTOP.ANEon 10-09-2024 MR/POSTOP.ANE Normal [facility] MR/ZYUPARLU3vk 10-09-2024 MR/POSTOPAN2 Normal [facility] Macrocytes detectionOrdered By: Enrique Browne on 10-09-2024 Macrocytes Ql (Bld) 1+ [facility] Partial Thromboplast Timeon 10-09-2024 aPTT Coag (Bld) [Time] 43.4 s High 24.1-36.2 [facility] Comment on above: Performed By: #### L 500.2500, L300.4310, L300.3900, L100.0100 ####[facility] [address] [place], [place], [address] Prothrombin Time w/INRon INR Coag (PPP) [Relative time] 1.9 {INR} Normal [facility] Comment on above: Performed By: #### L 500.2500, L300.4310, L300.3900, L100.0100 ####[facility] [address] [place], [address] PT Coag (PPP) [Time] 22.2 s High 11.7-14.9 [facility] Comment on above: Performed By: #### L 500.2500, L300.4310, L300.3900, L100.0100 ####[facility] [address] [place], [address] Prothrombin timeOrdered By: Enirque Browne on 10-09-2024 PT Coag (PPP) [Time] 22.2 s High 11.7-14.9 [facility] 12 Lead EKGon 10-08-2024 12 Lead EKG Normal [facility] 12 Lead EKG Normal [facility] Absolute lymphocyte countOrd ered By: Kelsie Toni on 10-08-2024 Lymphocytes Auto (Unsp spec) [#/Vol] 1.12 10*3/uL 0.83-4.51 [facility] Absolute neutrophil countOrd ered By: [facility] Toni on 10-08-2024 Neutrophils (Bld) [#/Vol] 5.3 10*3/uL 2.0-7.7 [facility] Anion gap in Serum or Plasma Ordered By: [facility] Toni on 10-08-2024 Anion gap [Moles/Vol] 14 mmol/L 5-15 [facility] Automated lymphocyte count a s percentage of total leukocytesOrdered By: Kelsie Toni on 10-08-2024 Lymphocytes/100 WBC Auto (Unsp spec) 15.5 % Low 19-41 [facility] BUN/creatinine ratioOrdered By: [facility] Toni on 10-08-2024 Urea nitrogen/Creatinine [Mass ratio] 29.0 mg/mg High 10-20 [facility] Basophil percentageOrdered B y: Kelsie Toni on 10-08-2024 Basophils/100 WBC (Bld) 0.4 % 0-[address] [facility] Bedside Glucoseon 10-08-2024 FINGERSTICK GLU 126 mg/dL High 74-106 [facility] Comment on above: Result Comment: LEVI HYDE OF PATIENT CARE PER NURSING PROTOCOL Performed By: #### L 501.080 ####[facility] [address] [place], [address] FINGERSTICK GLU 143 mg/dL High 74-106 [facility] Comment on above: Result Comment: LEVI GEMENT OF PATIENT CARE PER NURSING PROTOCOL Performed By: #### L 501.080 ####[facility] [address] [place], [address] FINGERSTICK GLU 96 mg/dL Normal 74-106 [facility] Comment on above: Result Comment: LEVI GEMENT OF PATIENT CARE PER NURSING PROTOCOL Performed By: #### L 501.080 ####[facility] [address] [place], [address] Bilirubin, totalOrdered By: Kelsie Muñoz on 10-08-2024 Bilirubin [Mass/Vol] 0.55 mg/dL 0.00-1.30 [facility] Blood polychromasia detectio n by light microscopyOrdered By: Kelsie Muñoz on 10-08-2024 Polychromasia LM Ql (Bld) 1+ [facility] CBC W/Diff, Automatedon Anisocytosis Ql (Bld) 1+ Normal [facility] Comment on above: Performed By: #### L 500.4100, L500.4050, L300.3900, L100.0100 ####[facility] [address] [place], [address] HYPOCHROMASIA 1+ Normal [facility] Comment on above: Performed By: #### L 500.4100, L500.4050, L300.3900, L100.0100 ####[facility] [address] [place], [address] POLYCHROMASIA 1+ Normal [facility] Comment on above: Performed By: #### L 500.4100, L500.4050, L300.3900, L100.0100 ####[facility] [address] [place], [address] Calculated very low density lipoprotein (VLDL) cholesterol measurementOrdered By: Kelsie Toni on 10-08-2024 Calculated very low density lipoprotein (VLDL) cholesterol measurement 72 mg/dL High 5-40 [facility] Carbon dioxide, total [Moles /volume] in Central venous bloodOrdered By: Eklsie Toni on 10-08-2024 CO2 [Moles/Vol] 19.3 mmol/L Low 21.0-32.0 [facility] Chloride assayOrdered By: Bharti Muñoz on 10-08-2024 Chloride [Moles/Vol] 106 mmol/L 98-108 [facility] Comprehensive Metabolic Prof ilon 10-08-2024 Albumin [Mass/Vol] 3.9 g/dL Normal 3.4-4.8 [facility] Comment on above: Performed By: #### L 500.4100, L500.4050, L300.3900, L100.0100 ####[facility] [address] [place], [address] Albumin/Globulin [Mass ratio] 1.5 {ratio} Normal 0.9-2.4 [facility] Comment on above: Performed By: #### L 500.4100, L500.4050, L300.3900, L100.0100 ####[facility] [address] [place], [address] ALK PHOS 48 U/L Normal 35-104 [facility] Comment on above: Performed By: #### L 500.4100, L500.4050, L300.3900, L100.0100 ####[facility] [address] [place], [address] ALT [Catalytic activity/Vol] 11 U/L Normal <=34 [facility] Comment on above: Performed By: #### L 500.4100, L500.4050, L300.3900, L100.0100 ####[facility] [address] [place], [address] AST [Catalytic activity/Vol] 20 U/L Normal <=31 [facility] Comment on above: Performed By: #### L 500.4100, L500.4050, L300.3900, L100.0100 ####[facility] [address] [place], [address] Bilirubin [Mass/Vol] 0.55 mg/dL Normal 0.00-1.30 [facility] Comment on above: Performed By: #### L 500.4100, L500.4050, L300.3900, L100.0100 ####[facility] [address] [place], [address] BUN/CRE 29.0 RATIO High 10-20 [facility] Comment on above: Performed By: #### L 500.4100, L500.4050, L300.3900, L100.0100 ####[facility] [address] [place], [address] Calcium [Mass/Vol] 9.1 mg/dL Normal 7.6-11.0 [facility] Comment on above: Performed By: #### L 500.4100, L500.4050, L300.3900, L100.0100 ####[facility] [address] [place], [address] Chloride [Moles/Vol] 106 mmol/L Normal 98-108 [facility] Comment on above: Performed By: #### L 500.4100, L500.4050, L300.3900, L100.0100 ####[facility] [address] [place], [address] CO2 [Moles/Vol] 19.3 mmol/L Low 21.0-32.0 [facility] Comment on above: Performed By: #### L 500.4100, L500.4050, L300.3900, L100.0100 ####[facility] [address] [place], [address] Creatinine [Mass/Vol] 1.25 mg/dL High 0.70-1.20 [facility] Comment on above: Performed By: #### L 500.4100, L500.4050, L300.3900, L100.0100 ####[facility] [address] [place], [address] ECRCL 31.37 ml/min Low 50-250 [facility] Comment on above: Performed By: #### L 500.4100, L500.4050, L300.3900, L100.0100 ####[facility] [address] [place], [address] GAP 14 Normal 5-15 [facility] Comment on above: Performed By: #### L 500.4100, L500.4050, L300.3900, L100.0100 ####[facility] [address] [place], [address] GFR/1.73 sq M.predicted among non-blacks MDRD (S/P/Bld) [Vol rate/Area] 43 mL/min/{1.73_m2} Low >60 [facility] Comment on above: Result Comment: mL/m in/1.73m2 CKD-EPI Creatinine Equation (2020) Performed By: #### L 500.4100, L500.4050, L300.3900, L100.0100 ####[facility] [address] [place], [address] Globulin (S) [Mass/Vol] 2.7 g/dL Normal 2.2-4.[address] [facility] Comment on above: Performed By: #### L 500.4100, L500.4050, L300.3900, L100.0100 ####[facility] [address] [place], [address] Glucose [Mass/Vol] 121 mg/dL High 70-99 [facility] Comment on above: Performed By: #### L 500.4100, L500.4050, L300.3900, L100.0100 ####[facility] [address] [place], [address] Potassium [Moles/Vol] 3.7 mmol/L Normal 3.3-5.1 [facility] Comment on above: Performed By: #### L 500.4100, L500.4050, L300.3900, L100.0100 ####[facility] [address] [place], [address] Sodium [Moles/Vol] 140 mmol/L Normal 133-145 [facility] Comment on above: Performed By: #### L 500.4100, L500.4050, L300.3900, L100.0100 ####[facility] [address] [place], [address] T PROT 6.6 g/dL Normal 5.9-8.4 [facility] Comment on above: Performed By: #### L 500.4100, L500.4050, L300.3900, L100.0100 ####[facility] [address] [place], [address] Urea nitrogen [Mass/Vol] 36 mg/dL High 4-19 [facility] Comment on above: Performed By: #### L 500.4100, L500.4050, L300.3900, L100.0100 ####[facility] [address] [place], [address] Consultation - Cardiologyon 10-08-2024 Consultation - Cardiology Normal [facility] Electrocardiogram reportOrde red By: Roly Herrera on 10-08-2024 EKG study [facility] [address] [place] [address] 12 Lead EKG 10/08/24 0527 MR#: [id number] Acct: [id number] Name: JAROD PRITCHARD Rep #:[id number] : 1940 83 From: Roly trejo MD Attending Dr: Dr. Shaan Monae DO Status: ADM IN Ordering Dr: Kelsie Muñoz MD Date: 10/08/24 Location: [facility] Sex: F C Admitted: 10/07/24 Test Reason : PRE OP Blood Pressure : */* mmHG Vent. Rate : 59 BPM Atrial Rate : * BPM P-R Int : * ms QRS Dur : 90 ms QT Int : 478 ms P-R-T Axes : * -39 91 degrees QTcB Int : 473 ms sinus bradycardia with PACs Left axis deviation ST & T wave abnormality, consider lateral ischemia Abnormal ECG When compared with ECG of 07-Oct-2024 21:29, MANUAL COMPARISON REQUIRED DATA IS UNCONFIRMED Confirmed by Roly Herrera ([id number]), editor publications [place] ADAMES ([id number]) on 10/08/2024 9:09:30 AM Referred By: TONI Confirmed By: Roly Herrera 10/08/24 0909 Date _ Roly Herrera MD CC: Dr. Kelsie Muñoz MD; Dr. Shaan Monae DO; Dr. Kierra Santiago MD ~ Signed [facility] Work Phone: Eosinophil percentageOrdered By: Kelsie Muñoz on 10-08-2024 Eosinophils/100 WBC (Bld) 0.8 % 0-5 [facility] Erythrocyte distribution wid th ratioOrdered By: Kelsie Muñoz on 10-08-2024 Erythrocyte distribution width (RBC) [Ratio] 21.8 % High 11.6-14.6 [facility] Erythrocyte distribution wid th standard deviationOrdered By: Kelsie Muñoz on 10-08-2024 Erythrocyte distribution width (RBC) [Ratio] 70.7 fl High 35.1-43.9 [facility] Glomerular filtration rate ( GFR) estimation/1.73 sq m using serum, plasma, or whole bOrdered By: Kelsie Muñoz on 10-08-2024 GFR/1.73 sq M.predicted among non-blacks MDRD (S/P/Bld) [Vol rate/Area] 43 mL/min/{1.73_m2} Low >60 [facility] Comment on above: mL/min/1.73m2 CKD-EP I Creatinine Equation (2020) [facility] deOrdered By: Shaan Monae on 10-08-2024 Glucose [Mass/Vol] 143 mg/dL High 74-106 [facility] Comment on above: MANAGEMENT OF PATIEN T CARE PER NURSING PROTOCOL HH, Hemoglobin AND Hematocri ton 10-08-2024 HCT Normal 37-47 [facility] Comment on above: Result Comment: DUPL ICATE. DRAWN AT 0920 Performed By: #### L 300.3900, L100.0600 ####[facility] [address] [place], [address] HGB Normal 12.0-15.0 [facility] Comment on above: Result Comment: DUPL ICATE. DRAWN AT 0920 Performed By: #### L 300.3900, L100.0600 ####[facility] [address] [place], [address] Hematocrit Auto (Bld) [Volum e fraction]Ordered By: Kelsie Muñoz on 10-08-2024 Hematocrit (Bld) [Volume fraction] 25.2 % Low 37-47 [facility] Hemoglobin measurementOrdere d By: Kelsie Muñoz on 10-08-2024 Hemoglobin (Bld) [Mass/Vol] 8.2 g/dL Low 12.0-15.0 [facility] Hypochromatic red blood cell detectionOrdered By: Kelsie Muñoz on 10-08-2024 Hypochromia Ql (Bld) 1+ [facility] Immature granulocytes/100 WB C Auto (Bld)Ordered By: Kelsie Muñoz on 10-08-2024 Immature granulocytes/100 WBC (Bld) 0.600 % 0.0-0.9 [facility] Comment on above: IG% - Immature Granu locytes (promyelocytes, myelocytes and metamyelocytes) > 1% indicates that a LEFT SHIFT is Present. International normalized rat io (INR) calculationOrdered By: Kelsie Muñoz on 10-08-2024 INR Coag (Bld) [Relative time] 1.9 {INR} [facility] L499.0042on 10-08-2024 Trop T High Sen 42 ng/L High <=14 [facility] Comment on above: Performed By: #### L 499.0042 ####[facility] [address] [place], [address] L499.0043on 10-08-2024 Trop T High Sen 50 ng/L High <=14 [facility] Comment on above: Performed By: #### L 499.0043 ####[facility] [address] [place], [address] LDL calc ser/plasOrdered By: Kelsie Muñoz on 10-08-2024 Cholesterol in LDL [Mass/Vol] 64 mg/dL [facility] Comment on above: Onovpcfrcm=847-362 m g/dL & Higher Pegl=203 mg/dL or greater Laboratory - Chemistry and C hemistry - challengeOrdered By: Kelsie Muñoz on 10-08-2024 AST [Catalytic activity/Vol] 20 U/L <32 [facility] Laboratory - Hematology and Cell countsOrdered By: Kelsie Muñoz on 10-08-2024 Anisocytosis Ql (Bld) 1+ [facility] Lipid Profileon 10-08-2024 CHOL:HDL 6.48 Normal [facility] Comment on above: Performed By: #### L 500.4100, L500.4050, L300.3900, L100.0100 ####[facility] [address] [place], [address] Cholesterol [Mass/Vol] 160 mg/dL Normal <=200 [facility] Comment on above: Result Comment: Chol esterol level, Desirable <200 mg/dLBorderline high cholesterol 200-239 mg/dLHigh cholesterol >=240 mg/dLRecommendations of the NCEP Adult Treatment Panel for thefollowing risk-cutoff thresholds for the [place] American[place]. Performed By: #### L 500.4100, L500.4050, L300.3900, L100.0100 ####[facility] [address] [place], [address] Cholesterol in HDL [Mass/Vol] 25 mg/dL Low [facility] Comment on above: Result Comment: Delphine onal Cholesterol Education Program (NCEP) guidelines:<40 mg/dL: Low HDL-cholesterol (major risk factor for CHD)>= 60 mg/dL: High HDL-cholesterol (negative risk factor forCHD)HDL-cholesterol is affected by a number of factors, e.g.smoking, exercise, hormones, sex and age. Performed By: #### L 500.4100, L500.4050, L300.3900, L100.0100 ####[facility] [address] [place], [address] Cholesterol in LDL [Mass/Vol] 64 mg/dL Normal [facility] Comment on above: Result Comment: Bord tvcohh=295-892 mg/dL Higher Dviw=975 mg/dL or greater Performed By: #### L 500.4100, L500.4050, L300.3900, L100.0100 ####[facility] [address] [place], [address] Cholesterol in VLDL [Mass/Vol] 72 mg/dL High 5-40 [facility] Comment on above: Performed By: #### L 500.4100, L500.4050, L300.3900, L100.0100 ####[facility] [address] [place], [address] Triglyceride [Mass/Vol] 359 mg/dL High [facility] Comment on above: Result Comment: The drugs N-Acetylcysteine and Metamizole may falselydepress this assay.Normal range: <150 mg/dLBorderline High: 150-199 mg/dLHigh: 200-499 mg/dLVery High: >500 mg/dL Performed By: #### L 500.4100, L500.4050, L300.3900, L100.0100 ####[facility] [address] [place], [place], [address] MCV (mean corpuscular volume ) determinationOrdered By: Kelsie Muñoz on 10-08-2024 MCV (RBC) [Entitic vol] 94.0 fL 81-99 [facility] Comment on above: Delta: 106.7 on MR/CON.PCM.GIon 10-08-2024 MR/CON.PCM.GI Normal [facility] Magnesiumon 10-08-2024 Magnesium [Mass/Vol] 2.0 mg/dL Normal 1.5-2.2 [facility] Comment on above: Order Comment: Comme nts: may add to ED labs Performed By: #### L 501.5200 ####[facility] [address] [facility] [place], [place], [address] Mean corpuscular hemoglobin (MCH) determinationOrdered By: Kelsie Muñoz on 10-08-2024 MCH (RBC) [Entitic mass] 30.6 pg 27.0-32.0 [facility] Mean corpuscular hemoglobin concentration (MCHC) determinationOrdered By: Kelsie Muñoz on 10-08-2024 MCHC (RBC) [Mass/Vol] 32.5 g/dL 32-36 [facility] Mean platelet volume determi nationOrdered By: Kelsie Muñoz on 10-08-2024 Platelet mean volume (Bld) [Entitic vol] 9.9 fL 6.2-12.0 [facility] Monocyte percentageOrdered B y: Kelsie Muñoz on 10-08-2024 Monocytes/100 WBC (Bld) 9.5 % 0-[address] [facility] Neutrophil percentageOrdered By: Kelsie Muñoz on 10-08-2024 Neutrophils/100 WBC (Bld) 73.2 % High 47-70 [facility] Nucleated red blood cell per centageOrdered By: Kelsie Muñoz on 10-08-2024 Nucleated RBC/100 WBC (Bld) [Ratio] 1.7 % 0-5 [facility] Platelet countOrdered By: Bharti Muñoz on 10-08-2024 Platelets (Bld) [#/Vol] 194 10*3/uL 150-450 [facility] Potassium measurement (mass/ volume)Ordered By: Kelsie Muñoz on 10-08-2024 Potassium (Unsp spec) [Mass/Vol] 3.7 mmol/L 3.3-5.1 [facility] Prothrombin Time w/INRon INR Coag (PPP) [Relative time] 1.9 {INR} Normal [facility] Comment on above: Performed By: #### L 500.4100, L500.4050, L300.3900, L100.0100 ####[facility] [address] [place], [address] PT Coag (PPP) [Time] 22.5 s High 11.7-14.9 [facility] Comment on above: Performed By: #### L 500.4100, L500.4050, L300.3900, L100.0100 ####[facility] [address] [place], [address] INR Coag (PPP) [Relative time] 1.9 {INR} Normal [facility] Comment on above: Order Comment: Comme nts: Obtain within 30 min-1 hour of FFP completion. Performed By: #### L 300.3900, L100.0600 ####[facility] [address] [place], [address] PT Coag (PPP) [Time] 22.3 s High 11.7-14.9 [facility] Comment on above: Order Comment: Comme nts: Obtain within 30 min-1 hour of FFP completion. Performed By: #### L 300.3900, L100.0600 ####[facility] [address] [place], [address] Prothrombin timeOrdered By: Kelsie Muñoz on 10-08-2024 PT Coag (PPP) [Time] 22.5 s High 11.7-14.9 [facility] RBC Auto (Bld) [#/Vol]Ordere d By: Kelsie Muñoz on 10-08-2024 RBC (Bld) [#/Vol] 2.68 10*6/uL Low 4.2-5.4 [facility] Screening total cholesterol/ high density lipoprotein (HDL) cholesterol ratioOrdered By: Kelsie Muñoz on 10-08-2024 Cholesterol.total/Roz sterol in HDL [Mass ratio] 6.48 {ratio} [facility] Serum creatinine measurement (mass/volume)Ordered By: Kelsie Muñoz on 10-08-2024 Creatinine [Mass/Vol] 1.25 mg/dL High 0.70-1.20 [facility] Serum globulin measurementOr dered By: Kelsie Muñoz on 10-08-2024 Globulin (S) [Mass/Vol] 2.7 g/dL 2.2-4.2 [facility] Serum glucose measurement (m ass/volume)Ordered By: Kelsie Muñoz on 10-08-2024 Glucose [Mass/Vol] 121 mg/dL High 70-99 [facility] Serum or plasma alanine jackson otransferase (ALT) measurementOrdered By: Kelsie Muñoz on 10-08-2024 ALT [Catalytic activity/Vol] 11 U/L <35 [facility] Serum or plasma albumin walker urement (mass/volume)Ordered By: Kelsie Muñoz on 10-08-2024 Albumin [Mass/Vol] 3.9 g/dL 3.4-4.8 [facility] Serum or plasma albumin/glob ulin mass ratioOrdered By: Kelsie Muñoz on 10-08-2024 Albumin/Globulin [Mass ratio] 1.5 {ratio} 0.9-2.4 [facility] Serum or plasma alkaline alejandro sphatase measurementOrdered By: Kelsie Muñoz on 10-08-2024 ALP [Catalytic activity/Vol] 48 U/L 35-104 [facility] Serum or plasma calcium walker urement (mass/volume)Ordered By: Kelsie Muñoz on 10-08-2024 Calcium [Mass/Vol] 9.1 mg/dL 7.6-11.0 [facility] Serum or plasma cholesterol in HDL measurement (mass/volume)Ordered By: Kelsie Muñoz on 10-08-2024 Cholesterol in HDL [Mass/Vol] 25 mg/dL Low >40 [facility] Comment on above: National Cholesterol Education Program (NCEP) guidelines:<40 mg/dL: Low HDL-cholesterol (major risk factor for CHD)>= 60 mg/dL: High HDL-cholesterol (negative risk factor for CHD)HDL-cholesterol is affected by a number of factors, e.g. smoking, exercise, hormones, sex and age. Serum or plasma cholesterol measurement (mass/volume)Ordered By: Kelsie Muñoz on 10-08-2024 Cholesterol [Mass/Vol] 160 mg/dL <[address] [facility] Comment on above: Cholesterol level, D esirable <200 mg/dLBorderline high cholesterol 200-239 mg/dLHigh cholesterol >=240 mg/dLRecommendations of the NCEP Adult Treatment Panel for the following risk-cutoff thresholds for the [place] population. Serum or plasma urea nitroge n measurement (mass/volume)Ordered By: eKlsie Muñoz on 10-08-2024 Urea nitrogen [Mass/Vol] 36 mg/dL High 4-19 [facility] Sodium levelOrdered By: Brenda Muñoz on 10-08-2024 Sodium [Moles/Vol] 140 mmol/L 133-145 [facility] Total proteinOrdered By: Yahaira Muñoz on 10-08-2024 Protein [Mass/Vol] 6.6 g/dL 5.9-8.4 [facility] Triglycerides measurementOrd ered By: Kelsie Muñoz on 10-08-2024 Triglyceride [Mass/Vol] 359 mg/dL High <199 [facility] Comment on above: The drugs N-Acetylcy steine and Metamizole may falsely depress this assay. Normal range: <150 mg/dLBorderline High: 150-199 mg/dLHigh: 200-499 mg/dLVery High: >500 mg/dL Troponin T.cardiac [Mass/vol ume] in Serum or Plasma by High sensitivity methodOrdered By: Matheus Fabian on 10-08-2024 Troponin T.cardiac High sensitivity method [Mass/Vol] 50 ng/L High <14 [facility] Troponin T.cardiac High sensitivity method [Mass/Vol] 42 ng/L High <14 [facility] White blood cell (WBC) count Ordered By: Kelsie Muñoz on 10-08-2024 WBC (Bld) [#/Vol] 7.2 10*3/uL 4.4-11.0 [facility] 12 Lead EKGon 10-07-2024 12 Lead EKG Normal [facility] Absolute lymphocyte countOrd ered By: Matheus Fabian on 10-07-2024 Lymphocytes Auto (Unsp spec) [#/Vol] 1.35 10*3/uL 0.83-4.51 [facility] Absolute neutrophil countOrd ered By: Matheus Fabian on 10-07-2024 Neutrophils (Bld) [#/Vol] 5.3 10*3/uL 2.0-7.7 [facility] Anion gap in Serum or Plasma Ordered By: Matheus Fabian on 10-07-2024 Anion gap [Moles/Vol] 16 mmol/L High 5-15 [facility] Automated lymphocyte count a s percentage of total leukocytesOrdered By: Matheus Fabian on 10-07-2024 Lymphocytes/100 WBC Auto (Unsp spec) 18.2 % Low 19-41 [facility] BFFPon 10-07-2024 FFP Normal [facility] Comment on above: Result Comment: [id number] AP FFP TRANSFUSED 10/08/24 0305 Performed By: #### B FFP ####[facility] [address] [place], [place], [address] BRCon 10-07-2024 RC Normal [facility] Comment on above: Result Comment: [id number] AP RC TRANSFUSED 10/08/24 [id number] AP RC TRANSFUSED 10/08/24 0428 Performed By: #### B RC, BTS ####[facility] [address] [place], [place], [address] BUN/creatinine ratioOrdered By: Matheus Fabian on 10-07-2024 Urea nitrogen/Creatinine [Mass ratio] 24.9 mg/mg High 02-18 [facility] Basic Metabolic Profile (BMP )on 10-07-2024 BUN/CRE 24.9 RATIO High 02-18 [facility] Comment on above: Performed By: #### L 501.4021, L300.3900, L500.2500, L100.0100, L503.7505 ####[facility] [address] [place], [place], [address] Calcium [Mass/Vol] 8.6 mg/dL Normal 7.6-11.0 [facility] Comment on above: Performed By: #### L 501.4021, L300.3900, L500.2500, L100.0100, L503.7505 ####[facility] [address], [address] Chloride [Moles/Vol] 102 mmol/L Normal 98-108 [facility] Comment on above: Performed By: #### L 501.4021, L300.3900, L500.2500, L100.0100, L503.7505 ####[facility] [address] [place], [address] CO2 [Moles/Vol] 16.2 mmol/L Low 21.0-32.0 [facility] Comment on above: Performed By: #### L 501.4021, L300.3900, L500.2500, L100.0100, L503.7505 ####[facility] [address] [place], [address] Creatinine [Mass/Vol] 1.46 mg/dL High 0.70-1.20 [facility] Comment on above: Performed By: #### L 501.4021, L300.3900, L500.2500, L100.0100, L503.7505 ####[facility] [address] [place], [address] ECRCL 26.99 ml/min Low 50-250 [facility] Comment on above: Performed By: #### L 501.4021, L300.3900, L500.2500, L100.0100, L503.7505 ####[facility] [address] [place], [address] GAP 16 High 5-15 [facility] Comment on above: Performed By: #### L 501.4021, L300.3900, L500.2500, L100.0100, L503.7505 ####[facility] [address] [place], [address] GFR/1.73 sq M.predicted among non-blacks MDRD (S/P/Bld) [Vol rate/Area] 35 mL/min/{1.73_m2} Low >60 [facility] Comment on above: Result Comment: mL/m in/1.73m2 CKD-EPI Creatinine Equation (2020) Performed By: #### L 501.4021, L300.3900, L500.2500, L100.0100, L503.7505 ####[facility] [address] [place], [address] Glucose [Mass/Vol] 140 mg/dL High 70-99 [facility] Comment on above: Performed By: #### L 501.4021, L300.3900, L500.2500, L100.0100, L503.7505 ####[facility] [address] [place], [address] Potassium [Moles/Vol] 3.9 mmol/L Normal 3.3-5.1 [facility] Comment on above: Result Comment: Hemo lysis present, Results??could be affected.?? Performed By: #### L 501.4021, L300.3900, L500.2500, L100.0100, L503.7505 ####[facility] [address] [place], [address] Sodium [Moles/Vol] 134 mmol/L Normal 133-145 [facility] Comment on above: Performed By: #### L 501.4021, L300.3900, L500.2500, L100.0100, L503.7505 ####[facility] [address] [place], [address] Urea nitrogen [Mass/Vol] 36 mg/dL High 4-19 [facility] Comment on above: Performed By: #### L 501.4021, L300.3900, L500.2500, L100.0100, L503.7505 ####[facility] [address] [place], [address] Basophil percentageOrdered B y: Matheus Caren on 10-07-2024 Basophils/100 WBC (Bld) 0.3 % 0-1 [facility] Blood manual differential co mment interpretation (narrative result)Ordered By: Matheus Fabian on 10-07-2024 Manual differential comment Warren (Bld) [Interp] SCANNED [facility] Blood polychromasia detectio n by light microscopyOrdered By: Matheus Fabian on 10-07-2024 Polychromasia LM Ql (Bld) 2+ [facility] CBC W/Diff, Automatedon 06 Anisocytosis Ql (Bld) 2+ Normal [facility] Comment on above: Performed By: #### L 501.4021, L300.3900, L500.2500, L100.0100, L503.7505 ####[facility] [address] [place], [address] POLYCHROMASIA 2+ Normal [facility] Comment on above: Performed By: #### L 501.4021, L300.3900, L500.2500, L100.0100, L503.7505 ####[facility] [address] [place], [address] PLT EST ADEQUATE Normal ADEQ [facility] Comment on above: Performed By: #### L 501.4021, L300.3900, L500.2500, L100.0100, L503.7505 ####[facility] [address] [place], [address] SMEAR COMMENT SCANNED Normal [facility] Comment on above: Performed By: #### L 501.4021, L300.3900, L500.2500, L100.0100, L503.7505 ####[facility] [address] [place], [address] Carbon dioxide, total [Moles /volume] in Central venous bloodOrdered By: Matheus Fabain on 10-07-2024 CO2 [Moles/Vol] 16.2 mmol/L Low 21.0-32.0 [facility] Chest PA and Lateralon 10-07 Chest PA and Lateral Normal [facility] Chloride assayOrdered By: Shreyas Fabian on 10-07-2024 Chloride [Moles/Vol] 102 mmol/L 98-108 [facility] Emergency Department Summary on 10-07-2024 Emergency Department Summary Normal [facility] Eosinophil percentageOrdered By: Matheus Fabian on 10-07-2024 Eosinophils/100 WBC (Bld) 0.4 % 0-5 [facility] Erythrocyte distribution wid th ratioOrdered By: Matheus Fabian on 10-07-2024 Erythrocyte distribution width (RBC) [Ratio] 19.2 % High 11.6-14.6 [facility] Erythrocyte distribution wid th standard deviationOrdered By: Matheus Fabian on 10-07-2024 Erythrocyte distribution width (RBC) [Ratio] 72.3 fl High 35.1-43.9 [facility] Glomerular filtration rate ( GFR) estimation/1.73 sq m using serum, plasma, or whole bOrdered By: Matheus Fabian on 10-07-2024 GFR/1.73 sq M.predicted among non-blacks MDRD (S/P/Bld) [Vol rate/Area] 35 mL/min/{1.73_m2} Low >60 [facility] Comment on above: mL/min/1.73m2 CKD-EP I Creatinine Equation (2020) H AND P Exam - [facility] 10-07-2024 H&P Exam - Hospitalist Normal [facility] Hematocrit Auto (Bld) [Volum e fraction]Ordered By: Matheus Fabian on 10-07-2024 Hematocrit (Bld) [Volume fraction] 20.6 % Low 37-47 [facility] Hemoglobin measurementOrdere d By: Matheus Fabian on 10-07-2024 Hemoglobin (Bld) [Mass/Vol] 6.5 g/dL Low 12.0-15.0 [facility] Immature granulocytes/100 WB C Auto (Bld)Ordered By: Matheus Fabian on 10-07-2024 Immature granulocytes/100 WBC (Bld) 0.400 % 0.0-0.9 [facility] Comment on above: IG% - Immature Granu locytes (promyelocytes, myelocytes and metamyelocytes) > 1% indicates that a LEFT SHIFT is Present. International normalized rat io (INR) calculationOrdered By: Matheus Fabian on 10-07-2024 INR Coag (Bld) [Relative time] 2.7 {INR} [facility] L501.4021on 10-07-2024 Trop T High Sen 46 ng/L High <=14 [facility] Comment on above: Performed By: #### L 501.4021, L300.3900, L500.2500, L100.0100, L503.7505 ####[facility] [address] [place], [place], [id number] L503.7505on 10-07-2024 Natriuretic peptide B (Bld) [Mass/Vol] 2304 pg/mL High <=1800 [facility] Comment on above: Result Comment: Hear t Failure Unlikely: < 300 pg/mLHeart Failure Likely< 50 Years: > 450 pg/mL50-75 Years: > 900 pg/mL>75 Years: > 1800 pg/mL Performed By: #### L 501.4021, L300.3900, L500.2500, L100.0100, L503.7505 ####[facility] [address] [place], [place], [id number] Laboratory - Hematology and Cell countsOrdered By: Matheus Fabian on 10-07-2024 Anisocytosis Ql (Bld) 2+ [facility] MCV (mean corpuscular volume ) determinationOrdered By: Matheus Fabian on 10-07-2024 MCV (RBC) [Entitic vol] 106.7 fL High 81-99 [facility] Magnesium measurement (mass/ volume)Ordered By: Kelsie Muñoz on 10-07-2024 Magnesium (Unsp spec) [Mass/Vol] 2.0 mg/dL 1.5-2.2 [facility] Mean corpuscular hemoglobin (MCH) determinationOrdered By: Matheus Fabian on 10-07-2024 MCH (RBC) [Entitic mass] 33.7 pg High 27.0-32.0 [facility] Mean corpuscular hemoglobin concentration (MCHC) determinationOrdered By: Matheus Fabian on 10-07-2024 MCHC (RBC) [Mass/Vol] 31.6 g/dL Low 32-36 [facility] Mean platelet volume determi nationOrdered By: Matheus Fabian on 10-07-2024 Platelet mean volume (Bld) [Entitic vol] 11.5 fL 6.2-12.0 [facility] Monocyte percentageOrdered B y: Matheus Fabian on 10-07-2024 Monocytes/100 WBC (Bld) 8.9 % 0-10 [facility] Natriuretic peptide.B prohor dolores N-Terminal [Mass/volume] in Serum or PlasmaOrdered By: Matheus Fabian on 10-07-2024 Natriuretic peptide.B prohormone N-Terminal [Mass/Vol] 2304 pg/mL High <1800 [facility] Comment on above: Heart Failure Unlike ly: < 300 pg/mLHeart Failure Likely< 50 Years: > 450 pg/mL50-75 Years: > 900 pg/mL>75 Years: > 1800 pg/mL Neutrophil percentageOrdered By: Matheus Fabian on 10-07-2024 Neutrophils/100 WBC (Bld) 71.8 % High 47-70 [facility] Nucleated red blood cell per centageOrdered By: Matheus Fabian on 10-07-2024 Nucleated RBC/100 WBC (Bld) [Ratio] 1.5 % 0-5 [facility] Platelet countOrdered By: Shreyas Fabian on 10-07-2024 Platelets (Bld) [#/Vol] 184 10*3/uL 150-450 [facility] Platelet estimateOrdered By: Matheus Fabian on 10-07-2024 Platelets LM Ql (Bld) ADEQUATE ADEQ [facility] Potassium measurement (mass/ volume)Ordered By: Matheus Fabian on 10-07-2024 Potassium (Unsp spec) [Mass/Vol] 3.9 mmol/L 3.3-5.1 [facility] Comment on above: Hemolysis present, R esults could be affected. Prothrombin Time w/INRon INR Coag (PPP) [Relative time] 2.7 {INR} Normal [facility] Comment on above: Performed By: #### L 501.4021, L300.3900, L500.2500, L100.0100, L503.7505 ####[facility] [address] [place], [place], [phone] PT Coag (PPP) [Time] 29.4 s High 11.7-14.9 [facility] Comment on above: Performed By: #### L 501.4021, L300.3900, L500.2500, L100.0100, L503.7505 ####[facility] [address] [place], [place], [phone] Prothrombin timeOrdered By: Matheus Fabian on 10-07-2024 PT Coag (PPP) [Time] 29.4 s High 11.7-14.9 [facility] RBC Auto (Bld) [#/Vol]Ordere d By: Matheus Fabian on 10-07-2024 RBC (Bld) [#/Vol] 1.93 10*6/uL Low 4.2-5.4 [facility] Serum creatinine measurement (mass/volume)Ordered By: Matheus Fabian on 10-07-2024 Creatinine [Mass/Vol] 1.46 mg/dL High 0.70-1.20 [facility] Serum glucose measurement (m ass/volume)Ordered By: Matheus Fabian on 10-07-2024 Glucose [Mass/Vol] 140 mg/dL High 70-99 [facility] Serum or plasma calcium walker urement (mass/volume)Ordered By: Matheus Fabian on 10-07-2024 Calcium [Mass/Vol] 8.6 mg/dL 7.6-11.0 [facility] Serum or plasma urea nitroge n measurement (mass/volume)Ordered By: Matheus Fabian on 10-07-2024 Urea nitrogen [Mass/Vol] 36 mg/dL High 4-19 [facility] Sodium levelOrdered By: Chapincito Fabian on 10-07-2024 Sodium [Moles/Vol] 134 mmol/L 133-145 [facility] Stool Occult Blood iFOBon STOB Positive Normal [facility] Comment on above: Performed By: #### M 100.7900 ####[facility] [address] [place], [place], [address] Stool gastrointestinal hemog lobin detection by immunologic methodOrdered By: Matheus Fabian on 10-07-2024 Lower GI hemoglobin IA Ql (Stl) Positive Abnormal [facility] Troponin T.cardiac [Mass/vol ume] in Serum or Plasma by High sensitivity methodOrdered By: Matheus Fabian on 10-07-2024 Troponin T.cardiac High sensitivity method [Mass/Vol] 46 ng/L High <14 [facility] Type AND Screenon 10-07-2024 ABO and Rh group Nom (Bld) Blood group A Rh(D) positive Normal [facility] Comment on above: Order Comment: CMV N EG? NNumber of units to transfuse: 2Is the EBL >/= 1000ml in adults or >/= 12ml/kg in children?YReason for Ordering Blood: AcuteAre the blood/blood products to be transfused? YIs the patient having/had surgery? NHas pt arrived? YWhen [place] Performed By: #### B RC, BTS ####[facility] [address] [place], [place], [phone] White blood cell (WBC) count Ordered By: Matheus Fabian on 10-07-2024 WBC (Bld) [#/Vol] 7.4 10*3/uL 4.4-11.0 [facility] Venous Duplex US - Kwadwo Extre mon 10-02-2024 Venous Duplex US - Kwadwo Extrem Normal [facility] Venous duplex ultrasound rep ortOrdered By: Jose Hollis on 10-02-2024 US Vein [facility] [address] [place] [address] Venous Duplex US - Kwadwo Extrem 10/02/24 1259 MR#: [id number] Acct: [id number] Name: JAROD PRITCHARD Rep #:[id number] : 1940 83 From: Jose Hollis MD Attending Dr: Dr. Eugene Blanca, DPM Status: REG CLI Ordering Dr: Eugene Blanca DPM Date: 10/02/24 Location: CVS Sex: F C Admitted: Reason For Study Reason For Study: PAIN/SWELLING RIGHT LEFT GSV is normal. GSV is normal. CFV is compressible, spontaneous, phasic, competent CFV is compressible, spontaneous, phasic, competent, and demonstrates normal augmentation. and demonstrates normal augmentation. FV is compressible, spontaneous, phasic, competent and FV is compressible, spontaneous, phasic, competent demonstrates normal augmentation. and demonstrates normal augmentation. POP V is compressible, spontaneous, phasic, competent POP V is compressible, spontaneous, phasic, and demonstrates normal augmentation. competent anddemonstrates normal augmentation. T/P Trunk is compressible. T/P Trunk is compressible. PTV is compressible. PTV is compressible. RT PerV is compressible. LT PerV is compressible. Procedure This is a venous duplex using B-mode, color flow and spectral Doppler. Exam performed in department. The study was technically difficult. PT had difficulty tolerating probe pressure/compressions . A preliminary report was called and/or faxed to Dr. Blanca @ 13:30. VL/Venous Duplex US - Kwadwo Extrem Interpretation Summary Deep veins of the lower extremities are bilaterally patent and compressible segmentally. There is no evidence of deep vein thrombosis on either side. Valvular competence appears intact within the proximal deep venous systems bilaterally. The great saphenous veins appear bilaterally patent and compressible segmentally. Ordering Physician: Eugnee Blanca Referring Physician: Kierra Santiago Performed By: Stephy Duenas, MATCS, RVT 10/02/242135 Date _ Jose Hollis MD CC: DPM Dr. Eugene Blanca; Dr. Kierra Santiago MD ~ Date Dictated: 10/02/24 1259 Date Transcribed: 10/02/242135 [employer]: Signed [facility] Other Phone: CTA Head AND Neck W/ Contras ton 10-01-2024 CTA Head AND Neck W/ Contrast Normal [facility] Creatinine measurement at dsideOrdered By: Laura Crowell on 10-01-2024 Creatinine [Mass/Vol] 1.2 mg/dL High 0.55-1.02 [facility] Comment on above: Performed By: #### L 9100.0200 ####[facility] [address] [facility] [place], [place], [id number] EGFROrdered By: Laura Crowell on 10-01-2024 GFR/1.73 sq M.predicted among non-blacks MDRD (S/P/Bld) [Vol rate/Area] 44.0000 mL/min/{1.73_m2} Low >60 [facility] Comment on above: Performed By: #### L 9100.0200 ####[facility] [address] [facility] [place], [place], [address] Anion gap in Serum or Plasma Ordered By: Dominick Harrell on 08-28-2024 Anion gap [Moles/Vol] 14 mmol/L 5-15 [facility] Ankle Brachial Indexon 08-28 Ankle Brachial Index Normal [facility] BUN/creatinine ratioOrdered By: Dominick Harrell on 08-28-2024 Urea nitrogen/Creatinine [Mass ratio] 22.4 mg/mg High 10-20 [facility] Basic Metabolic Profile (BMP )on 08-28-2024 BUN/CRE 22.4 RATIO High 02-18 [facility] Comment on above: Performed By: #### L 500.2500 ####[facility] [address] [place], [address] Calcium [Mass/Vol] 9.8 mg/dL Normal 7.6-11.0 [facility] Comment on above: Performed By: #### L 500.2500 ####[facility] [address] [place], [address] Chloride [Moles/Vol] 102 mmol/L Normal 98-108 [facility] Comment on above: Performed By: #### L 500.2500 ####[facility] [address] [place], [address] CO2 [Moles/Vol] 21.9 mmol/L Normal 21.0-32.0 [facility] Comment on above: Performed By: #### L 500.2500 ####[facility] [address] [place], [address] Creatinine [Mass/Vol] 1.17 mg/dL Normal 0.70-1.20 [facility] Comment on above: Performed By: #### L 500.2500 ####[facility] [address] [place], [address] GAP 14 Normal 5-15 [facility] Comment on above: Performed By: #### L 500.2500 ####[facility] [address] [place], [address] GFR/1.73 sq M.predicted among non-blacks MDRD (S/P/Bld) [Vol rate/Area] 46 mL/min/{1.73_m2} Low >60 [facility] Comment on above: Result Comment: mL/m in/1.73m2 CKD-EPI Creatinine Equation (2020) Performed By: #### L 500.2500 ####[facility] [address] [place], [address] Glucose [Mass/Vol] 140 mg/dL High 70-99 [facility] Comment on above: Performed By: #### L 500.2500 ####[facility] [address] [place], [address] Potassium [Moles/Vol] 3.9 mmol/L Normal 3.3-5.1 [facility] Comment on above: Performed By: #### L 500.2500 ####[facility] [address] [place], [address] Sodium [Moles/Vol] 137 mmol/L Normal 133-145 [facility] Comment on above: Performed By: #### L 500.2500 ####[facility] [address] [place], [address] Urea nitrogen [Mass/Vol] 26 mg/dL High 4-19 [facility] Comment on above: Performed By: #### L 500.2500 ####[facility] [address] [place], [address] Carbon dioxide, total [Moles /volume] in Central venous bloodOrdered By: Dominick Harrell on 08-28-2024 CO2 [Moles/Vol] 21.9 mmol/L 21.0-32.0 [facility] Chloride assayOrdered By: Cary Harrell on 08-28-2024 Chloride [Moles/Vol] 102 mmol/L 98-108 [facility] Glomerular filtration rate ( GFR) estimation/1.73 sq m using serum, plasma, or whole bOrdered By: Dominick Harrell on 08-28-2024 GFR/1.73 sq M.predicted among non-blacks MDRD (S/P/Bld) [Vol rate/Area] 46 mL/min/{1.73_m2} Low >60 [facility] Comment on above: mL/min/1.73m2 CKD-EP I Creatinine Equation (2020) Potassium measurement (mass/ volume)Ordered By: Dominick Harrell on 08-28-2024 Potassium (Unsp spec) [Mass/Vol] 3.9 mmol/L 3.3-5.1 [facility] Serum creatinine measurement (mass/volume)Ordered By: Dominick Harrell on 08-28-2024 Creatinine [Mass/Vol] 1.17 mg/dL 0.70-1.20 [facility] Serum glucose measurement (m ass/volume)Ordered By: Dominick Harrell on 08-28-2024 Glucose [Mass/Vol] 140 mg/dL High 70-99 [facility] Serum or plasma calcium walker urement (mass/volume)Ordered By: Dominick Harrell on 08-28-2024 Calcium [Mass/Vol] 9.8 mg/dL 7.6-11.0 [facility] Serum or plasma urea nitroge n measurement (mass/volume)Ordered By: Dominick Harrell on 08-28-2024 Urea nitrogen [Mass/Vol] 26 mg/dL High 4-19 [facility] Sodium levelOrdered By: Dominick Harrell on 08-28-2024 Sodium [Moles/Vol] 137 mmol/L 133-145 [facility] US Art Duplex Unilat Lower E xton 08-28-2024 US Art Duplex Unilat Lower Ext Normal [facility] EGD Reporton 08-22-2024 EGD Report Normal [facility] International normalized rat io (INR) calculationOrdered By: Robb Giron on 08-22-2024 INR Coag (Bld) [Relative time] 1.2 {INR} [facility] MR/POSTOP.ANEon 08-22-2024 MR/POSTOP.ANE Normal [facility] MR/EZWKILID8mi 08-22-2024 MR/POSTOPAN2 Normal [facility] Prothrombin Time w/INRon INR Coag (PPP) [Relative time] 1.2 {INR} Normal [facility] Comment on above: Performed By: #### L 300.3900 ####[facility] [address] [place], [place], [phone] PT Coag (PPP) [Time] 15.5 s High 11.7-14.9 [facility] Comment on above: Performed By: #### L 300.3900 ####[facility] [address] [place], [place], [phone] Prothrombin timeOrdered By: Robb Giron on 08-22-2024 PT Coag (PPP) [Time] 15.5 s High 11.7-14.9 [facility] Protime w/INR Fingerstickon 08-22-2024 INR Coag (PPP) [Relative time] 1.4 {INR} Normal [facility] Comment on above: Result Comment: Crit ical Value > 4.0 Performed By: #### L 9200.0000 ####[facility] [address] [place], [place], [address] Protime Coagsen 16.1 SEC High 11.7-14.9 [facility] Comment on above: Performed By: #### L 9200.0000 ####[facility] [address] [place], [place], [id number] Surgery Specimen Level Aj 08-22-2024 Surgery Specimen Level IV Normal [facility] Comment on above: Performed By: #### P SUIV ####[facility] [address] [place], [place], [address] Whole blood prothrombin time Ordered By: Robb Giron on 08-22-2024 PT Coag (Bld) [Time] 16.1 s High 11.7-14.9 [facility] MR/PAT.ANEon 08-17-2024 MR/PAT.ANE Normal [facility] Anion gap in Serum or Plasma Ordered By: Dominick Harrell on 08-15-2024 Anion gap [Moles/Vol] 13 mmol/L - [facility] BUN/creatinine ratioOrdered By: Dominick Harrell on 08-15-2024 Urea nitrogen/Creatinine [Mass ratio] 29.1 mg/mg High - [facility] Basic Metabolic Profile (BMP )on 08-15-2024 BUN/CRE 29.1 RATIO High 02-18 [facility] Comment on above: Performed By: #### L 500.2500 ####[facility] [address] [place], [place], [phone] Calcium [Mass/Vol] 9.9 mg/dL Normal 7.6-11.0 [facility] Comment on above: Performed By: #### L 500.2500 ####[facility] [address] [place], [address] Chloride [Moles/Vol] 99 mmol/L Normal 98-108 [facility] Comment on above: Performed By: #### L 500.2500 ####[facility] [address] [place], [address] CO2 [Moles/Vol] 25.0 mmol/L Normal 21.0-32.0 [facility] Comment on above: Performed By: #### L 500.2500 ####[facility] [address] [place], [address] Creatinine [Mass/Vol] 1.16 mg/dL Normal 0.70-1.20 [facility] Comment on above: Performed By: #### L 500.2500 ####[facility] [address] [place], [address] GAP 13 Normal 5-15 [facility] Comment on above: Performed By: #### L 500.2500 ####[facility] [address] [place], [address] GFR/1.73 sq M.predicted among non-blacks MDRD (S/P/Bld) [Vol rate/Area] 46 mL/min/{1.73_m2} Low >60 [facility] Comment on above: Result Comment: mL/m in/1.73m2 CKD-EPI Creatinine Equation (2020) Performed By: #### L 500.2500 ####[facility] [address] [place], [address] Glucose [Mass/Vol] 148 mg/dL High 70-99 [facility] Comment on above: Performed By: #### L 500.2500 ####[facility] [address] [place], [address] Potassium [Moles/Vol] 3.4 mmol/L Normal 3.3-5.1 [facility] Comment on above: Result Comment: Hemo lysis present, Results??could be affected.?? Performed By: #### L 500.2500 ####[facility] [address] [place], [place], [address]) Sodium [Moles/Vol] 137 mmol/L Normal 133-145 [facility] Comment on above: Performed By: #### L 500.2500 ####[facility] [address] [place], [address] Urea nitrogen [Mass/Vol] 34 mg/dL High 4-19 [facility] Comment on above: Performed By: #### L 500.2500 ####[facility] [address] [place], [place], [id number] Carbon dioxide, total [Moles /volume] in Central venous bloodOrdered By: Dominick Harrell on 08-15-2024 CO2 [Moles/Vol] 25.0 mmol/L 21.0-32.0 [facility] Chloride assayOrdered By: Cary Harrell on 08-15-2024 Chloride [Moles/Vol] 99 mmol/L 98-108 [facility] GFR/1.73 sq M.predicted ryile g non-blacks MDRD (S/P/Bld) [Vol rate/Area]Ordered By: Dominick Harrell on 08-15-2024 Estimated GFR (MDRD) Non-Af Amer 46 Low >60 [facility] Comment on above: mL/min/1.73m2 CKD-EP I Creatinine Equation (2020) Glomerular filtration rate ( GFR) estimation/1.73 sq m using serum, plasma, or whole bOrdered By: Dominick Harrell on 08-15-2024 GFR/1.73 sq M.predicted among non-blacks MDRD (S/P/Bld) [Vol rate/Area] 46 mL/min/{1.73_m2} Low >60 [facility] Comment on above: mL/min/1.73m2 CKD-EP I Creatinine Equation (2020) Potassium (Unsp spec) [Mass/ Vol]Ordered By: Dominick Harrell on 08-15-2024 Potassium [Moles/Vol] 3.4 mmol/L 3.3-5.1 [facility] Comment on above: Hemolysis present, R esults could be affected. Potassium measurement (mass/ volume)Ordered By: Dominick Harrell on 08-15-2024 Potassium (Unsp spec) [Mass/Vol] 3.4 mmol/L 3.3-5.1 [facility] Comment on above: Hemolysis present, R esults could be affected. Serum creatinine measurement (mass/volume)Ordered By: Dominick Harrell on 08-15-2024 Creatinine [Mass/Vol] 1.16 mg/dL 0.70-1.20 [facility] Serum glucose measurement (m ass/volume)Ordered By: Dominick Harrell on 08-15-2024 Glucose [Mass/Vol] 148 mg/dL High 70-99 [facility] Serum or plasma calcium walker urement (mass/volume)Ordered By: Dominick Harrell on 08-15-2024 Calcium [Mass/Vol] 9.9 mg/dL 7.6-11.0 [facility] Serum or plasma urea nitroge n measurement (mass/volume)Ordered By: Dominick Harrell on 08-15-2024 Urea nitrogen [Mass/Vol] 34 mg/dL High 4-19 [facility] Sodium levelOrdered By: Dominick Harrell on 08-15-2024 Sodium [Moles/Vol] 137 mmol/L 133-145 [facility] CNPNon 07-31-2024 CNPN Telephone (SHAGUFTA) JAROD PRITCHARD ([id number]) 1940 F Date Time Provider Department 07/31/24 KIERRA SANTIAGO During your visit today, we recorded the following information about you: Iwona Donato, XOCHILT 07/31/2024 10:04 AM Signed patients orders for coumadin clinic inr's has at this time. new order has been pended for approval if possible so that patient can continue to get inr's completed thru the coumadin clinic. coumadin clinic nurse only needs called if order can not be approved. 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 - fluticasone (FLONASE) 50 mcg/actuation nasal spray Use 2 Sprays in each nostril once daily. - simvastatin (ZOCOR) 80 mg tablet Take 1 tablet by mouth daily at bedtime. - metoprolol succinate ER (TOPROL XL) 50 mg 24 hr tablet Take 1 tablet by mouth two times a day. - sertraline (ZOLOFT) 25 mg tablet Take 1 tablet by mouth once daily. - tiZANidine (ZANAFLEX) 4 mg tablet Take 1 tablet by mouth every 8 hours as needed. - potassium chloride ER (KLOR-CON) 20 mEq tablet Take 1 tablet by mouth two times a day. - warfarin (COUMADIN) 2 mg tablet Take 2 tablets by mouth once daily. - gabapentin (NEURONTIN) 100 mg capsule Take 1 capsule by mouth two times a day for 180 days. - clopidogrel (PLAVIX) 75 mg tablet Take 1 tablet by mouth once daily. - magnesium chloride 64 mg magnesium tab Take 2 tablets by mouth once daily. - pantoprazole (PROTONIX) 40 mg tablet Take 1 tablet by mouth every 12 hours. - furosemide (LASIX) 40 mg tablet Take 1 tablet by mouth once daily. - acetaminophen (TYLENOL) 500 mg tablet 1,000 mg. - glimepiride (AMARYL) 2 mg tablet Take 1 tablet by mouth daily with breakfast. Check blood sugars daily, if remaining above 200 consistently in 2 to 4 weeks will increase the dose - ferrous sulfate 325 mg (65 mg iron) tablet Take 325 mg by mouth. 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] 04/17/2024 Critical limb ischemia of right lower extremity*06/04/2024 07/17/2024 Acute on chronic congestive heart failure, unsp*06/04/2024 Atrial fibrillation, unspecified type (HCC) [I4*06/04/2024 S/P transmetatarsal amputation of foot, right (*07/17/2024 Stage 3b chronic kidney disease (HCC) [N18.32] 07/17/2024 Encounter Status:Closed by ANASTASIIA COLÓN on 07/31/24 Normal [facility] Anion gap in Serum or Plasma Ordered By: Dominick Harrell on 07-25-2024 Anion gap [Moles/Vol] 12 mmol/L 5-15 [facility] BUN/creatinine ratioOrdered By: Dominick Harrell on 07-25-2024 Urea nitrogen/Creatinine [Mass ratio] 23.1 mg/mg High 10- [facility] Basic Metabolic Profile (BMP )on 07-25-2024 BUN/CRE 23.1 RATIO High - [facility] Comment on above: Performed By: #### L 500.2500 ####[facility] [address] [place], [address] Calcium [Mass/Vol] 9.7 mg/dL Normal 7.6-11.0 [facility] Comment on above: Performed By: #### L 500.2500 ####[facility] [address] [place], [address] Chloride [Moles/Vol] 102 mmol/L Normal 98-108 [facility] Comment on above: Performed By: #### L 500.2500 ####[facility] [address] [place], [address] CO2 [Moles/Vol] 23.3 mmol/L Normal 21.0-32.0 [facility] Comment on above: Performed By: #### L 500.2500 ####[facility] [address] [place], [address] Creatinine [Mass/Vol] 1.05 mg/dL Normal 0.70-1.20 [facility] Comment on above: Performed By: #### L 500.2500 ####[facility] [address] [place], [address] GAP 12 Normal 5-15 [facility] Comment on above: Performed By: #### L 500.2500 ####[facility] [address] [place], [address] GFR/1.73 sq M.predicted among non-blacks MDRD (S/P/Bld) [Vol rate/Area] 52 mL/min/{1.73_m2} Low >60 [facility] Comment on above: Result Comment: mL/m in/1.73m2 CKD-EPI Creatinine Equation (2020) Performed By: #### L 500.2500 ####[facility] [address] [place], [address] Glucose [Mass/Vol] 138 mg/dL High 70-99 [facility] Comment on above: Performed By: #### L 500.2500 ####[facility] [address] [place], [address] Potassium [Moles/Vol] 4.1 mmol/L Normal 3.3-5.1 [facility] [place] Comment on above: Performed By: #### L 500.2500 ####[facility] [address] [place], [address] Sodium [Moles/Vol] 138 mmol/L Normal 133-145 [facility] Comment on above: Performed By: #### L 500.2500 ####[facility] [address] [place], [address] Urea nitrogen [Mass/Vol] 24 mg/dL High 4-19 [facility] Comment on above: Performed By: #### L 500.2500 ####[facility] [address] [place], [address] Carbon dioxide, total [Moles /volume] in Central venous bloodOrdered By: Dominick Harrell on 07-25-2024 CO2 [Moles/Vol] 23.3 mmol/L 21.0-32.0 [facility] Chloride assayOrdered By: Cary Harrell on 07-25-2024 Chloride [Moles/Vol] 102 mmol/L 98-108 [facility] GFR/1.73 sq M.predicted rylie g non-blacks MDRD (S/P/Bld) [Vol rate/Area]Ordered By: Dominick Harrell on 07-25-2024 Estimated GFR (MDRD) Non-Af Amer 52 Low >60 [facility] Comment on above: mL/min/1.73m2 CKD-EP I Creatinine Equation (2020) Glomerular filtration rate ( GFR) estimation/1.73 sq m using serum, plasma, or whole bOrdered By: Dominick Harrell on 07-25-2024 GFR/1.73 sq M.predicted among non-blacks MDRD (S/P/Bld) [Vol rate/Area] 52 mL/min/{1.73_m2} Low >60 [facility] Comment on above: mL/min/1.73m2 CKD-EP I Creatinine Equation (2020) Potassium (Unsp spec) [Mass/ Vol]Ordered By: Dominick Harrell on 07-25-2024 Potassium [Moles/Vol] 4.1 mmol/L 3.3-5.1 [facility] Potassium measurement (mass/ volume)Ordered By: Dominick Harrell on 07-25-2024 Potassium (Unsp spec) [Mass/Vol] 4.1 mmol/L 3.3-5.1 [facility] Serum creatinine measurement (mass/volume)Ordered By: Dominick Harrell on 07-25-2024 Creatinine [Mass/Vol] 1.05 mg/dL 0.70-1.20 [facility] Serum glucose measurement (m ass/volume)Ordered By: Dominick Harrell on 07-25-2024 Glucose [Mass/Vol] 138 mg/dL High 70-99 [facility] Serum or plasma calcium walker urement (mass/volume)Ordered By: Dominick Harrell on 07-25-2024 Calcium [Mass/Vol] 9.7 mg/dL 7.6-11.0 [facility] Serum or plasma urea nitroge n measurement (mass/volume)Ordered By: Dominick Harrell on 07-25-2024 Urea nitrogen [Mass/Vol] 24 mg/dL High 4-19 [facility] Sodium levelOrdered By: Dominick Harrell on 07-25-2024 Sodium [Moles/Vol] 138 mmol/L 133-145 [facility] Basic metabolic 2000 panelon 07-17-2024 Anion gap [Moles/Vol] 12 mmol/L Normal 8-15 [facility] Comment on above: Order Comment: Speci men Type: BLOOD SPECIMEN Ordering Facility: [facility] Address: [address] [place] [address] Performed By: #### T [facility], 88514-1 #### [facility] CLIA [id number] [address] [place], [place] [address] [place] Calcium [Mass/Vol] 9.9 mg/dL Normal 8.5-10.2 [facility] Comment on above: Order Comment: Speci men Type: BLOOD SPECIMEN Ordering Facility: [facility] Address: [address] [place] [address] Performed By: #### T NIKIA, 44360-9 #### [facility] CLIA [id number] [address] [place] [address] [place] Chloride [Moles/Vol] 102 mmol/L Normal 98-107 [facility] Comment on above: Order Comment: Speci men Type: BLOOD SPECIMEN Ordering Facility: [facility] Address: [address] [place] [address] Performed By: #### T NIKIA, 76799-2 #### [facility] CLIA [id number] [address] [place] [address] [place] CO2 [Moles/Vol] 24 mmol/L Normal 22-30 [facility] Comment on above: Order Comment: Speci men Type: BLOOD SPECIMEN Ordering Facility: [facility] Address: [address] [place] [address] Performed By: #### T NIKIA, 30509-0 #### [facility] CLIA [id number] [address] [place] [address] [place] Creatinine [Mass/Vol] 1.01 mg/dL High 0.58-0.96 [facility] Comment on above: Order Comment: Speci men Type: BLOOD SPECIMEN Ordering Facility: [facility] Address: [address] [place] [address] Performed By: #### T NIKIA, 25792-1 #### [facility] CLIA [id number] [address] [place] [address] [place] Creatinine and Glomerular filtration rate.predicted panel (S/P/Bld) 55 mL/min/1.73m??? Low >=60 [facility] Comment on above: Order Comment: Miguel cunningham Type: BLOOD SPECIMEN Ordering Facility: [facility] Address: [address] [place] [address] Result Comment: Kimberley mated Glomerular Filtration Rate [...] accurately reflect actual GFR. Performed By: #### T [facility], 19414-5 #### [facility] CLIA [id number] [address] [place] [address] [place] Glucose [Mass/Vol] 149 mg/dL High 74-99 [facility] Comment on above: Order Comment: Miguel cunningham Type: BLOOD SPECIMEN Ordering Facility: [facility] Address: [address] [place] [address] Result Comment: The [place] Diabetes Association (ADA) provides guidance for cutoff values for fasting glucose and random glucose. The ADA defines fasting as no caloric intake for at least 8 hours. Fasting plasma glucose results between 100 to 125 mg/dL indicate increased risk for diabetes (prediabetes). Fasting plasma glucose results greater than or equal to 126 mg/dL meet the criteria for diagnosis of diabetes. In the absence of unequivocal hyperglycemia, results should be confirmed by repeat testing. In a patient with classic symptoms of hyperglycemia or hyperglycemic crisis, random plasma glucose results greater than or equal to 200 mg/dL meet the criteria for diagnosis of diabetes. Reference: Standards of Medical Care in Diabetes 2016, [place] Diabetes Association. Diabetes Care. 2016.39(Suppl 1). Performed By: #### T [facility], 12838-0 #### [facility] CLIA [id number] [address] [place] [address] [place] Potassium [Moles/Vol] 3.8 mmol/L Normal 3.7-5.1 [facility] Comment on above: Order Comment: Miguel cunningham Type: BLOOD SPECIMEN Ordering Facility: [facility] Address: [address] [place] [address] Performed By: #### T [facility], 26530-0 #### [facility] CLIA [id number] [address] [place] [address] [place] Sodium [Moles/Vol] 138 mmol/L Normal 136-144 [facility] Comment on above: Order Comment: Speci men Type: BLOOD SPECIMEN Ordering Facility: [facility] Address: [address] [place] [address] Performed By: #### T [facility], 52610-4 #### [facility] CLIA [id number] [address] [place] [address] [place] Urea nitrogen [Mass/Vol] 23 mg/dL High 7-21 [facility] Comment on above: Order Comment: Speci men Type: BLOOD SPECIMEN Ordering Facility: [facility] Address: [address] [place] [address] Performed By: #### T [facility], 93784-2 #### [facility] CLIA [id number] [address] [place] [address] [place] CBC W Auto Differential pane l (Bld)on 07-17-2024 Basophils (Bld) [#/Vol] 0.04 10*3/uL [facility] Basophils/100 WBC (Bld) 0.5 % [facility] Differential cell count method Nom (Bld) Auto [facility] Eosinophils (Bld) [#/Vol] 0.19 10*3/uL [facility] Eosinophils/100 WBC (Bld) 2.6 % [facility] Erythrocyte distribution width (RBC) [Ratio] 15.1 % High 11.5 - 15.0 % [facility] Hematocrit (Bld) [Volume fraction] 36.7 % 36.0 - 46.0 % [facility] Hemoglobin (Bld) [Mass/Vol] 11.8 g/dL 11.5 - 15.5 g/dL [facility] Immature granulocytes (Bld) [#/Vol] 0.05 10*3/uL [facility] Immature granulocytes/100 WBC (Bld) 0.7 % [facility] Interpretation and review of laboratory results Abnormal [facility] Lymphocytes (Bld) [#/Vol] 1.94 10*3/uL [facility] Lymphocytes/100 WBC (Bld) 26.6 % [facility] MCH (RBC) [Entitic mass] 31.6 pg 26.0 - 34.0 pg [facility] MCHC (RBC) [Mass/Vol] 32.2 g/dL 30.5 - 36.0 g/dL [facility] MCV (RBC) [Entitic vol] 98.1 fL 80.0 - 100.0 fL [facility] Monocytes (Bld) [#/Vol] 0.7 10*3/uL [facility] Monocytes/100 WBC (Bld) 9.6 % C [facility] Neutrophils (Bld) [#/Vol] 4.36 10*3/uL [facility] Neutrophils/100 WBC (Bld) 60 % [facility] Nucleated RBC (Bld) [#/Vol] NINF [facility] Nucleated RBC/100 WBC (Bld) [Ratio] 0 % /100 WBC [facility] Platelet mean volume (Bld) [Entitic vol] 11.8 fL 9.0 - 12.7 fL [facility] Platelets (Bld) [#/Vol] 239 10*3/uL [facility] RBC (Bld) [#/Vol] 3.74 10*6/uL Low 3.90 - 5.2 0 m/uL [facility] WBC (Bld) [#/Vol] 7.28 10*3/uL [facility] Basophils (Bld) [#/Vol] 0.04 10*3/uL Normal <0.11 [facility] Comment on above: Order Comment: Speci men Type: BLOOD SPECIMEN Ordering Facility: [facility] Address: [address] [place] [address] Performed By: #### 5 7021-8 #### [facility] CLIA [id number] [address] [place] [address] [place] [facility] Basophils/100 WBC (Bld) 0.5 % Normal [facility] Comment on above: Order Comment: Speci men Type: BLOOD SPECIMEN Ordering Facility: [facility] Address: [address] [place] [address] Performed By: #### 5 7021-8 #### [facility] CLIA [id number] [address] [place] [address] [place] Differential cell count method Nom (Bld) Auto Normal [facility] Comment on above: Order Comment: Speci men Type: BLOOD SPECIMEN Ordering Facility: [facility] Address: [address] [place] [address] Performed By: #### 5 7021-8 #### [facility] CLIA [id number] [address] [place] [address] [place] Eosinophils (Bld) [#/Vol] 0.19 10*3/uL Normal <0.46 [facility] Comment on above: Order Comment: Speci men Type: BLOOD SPECIMEN Ordering Facility: [facility] Address: [address] [place] [address] Performed By: #### 5 7021-8 #### [facility] CLIA [id number] [address] [place] [address] [place] Eosinophils/100 WBC (Bld) 2.6 % Normal [facility] Comment on above: Order Comment: Speci men Type: BLOOD SPECIMEN Ordering Facility: [facility] Address: [address] [place] [address] Performed By: #### 5 7021-8 #### [facility] CLIA [id number] [address] [place] [address] [place] Erythrocyte distribution width (RBC) [Ratio] 15.1 % High 11.5-15.0 [facility] Comment on above: Order Comment: Speci men Type: BLOOD SPECIMEN Ordering Facility: [facility] Address: [address] [place] [address] Performed By: #### 5 7021-8 #### [facility] CLIA [id number] [address] [place] [address] [place] Hematocrit (Bld) [Volume fraction] 36.7 % Normal 36.0-46.0 [facility] Comment on above: Order Comment: Speci men Type: BLOOD SPECIMEN Ordering Facility: [facility] Address: [address] [place] [address] Performed By: #### 5 7021-8 #### [facility] CLIA [id number] [address] [place] [address] [place] Hemoglobin (Bld) [Mass/Vol] 11.8 g/dL Normal 11.5-15.5 [facility] Comment on above: Order Comment: Speci men Type: BLOOD SPECIMEN Ordering Facility: [facility] Address: [address] [place] [address] Performed By: #### 5 7021-8 #### [facility] CLIA [id number] [address] [place] [address] [place] Immature granulocytes (Bld) [#/Vol] 0.05 10*3/uL Normal <0.10 [facility] Comment on above: Order Comment: Speci men Type: BLOOD SPECIMEN Ordering Facility: [facility] Address: [address] [place] [address] Performed By: #### 5 7021-8 #### [facility] CLIA [id number] [address] [place] [address] [place] Immature granulocytes/100 WBC (Bld) 0.7 % Normal [facility] Comment on above: Order Comment: Speci men Type: BLOOD SPECIMEN Ordering Facility: [facility] Address: [address] [place] [address] Performed By: #### 5 7021-8 #### [facility] CLIA [id number] [address] [place] [address] [place] Lymphocytes (Bld) [#/Vol] 1.94 10*3/uL Normal 1.00-4.00 [facility] Comment on above: Order Comment: Speci men Type: BLOOD SPECIMEN Ordering Facility: [facility] Address: [address] [place] [address] Performed By: #### 5 7021-8 #### [facility] CLIA [id number] [address] [place] [address] [place] Lymphocytes/100 WBC (Bld) 26.6 % Normal [facility] Comment on above: Order Comment: Speci men Type: BLOOD SPECIMEN Ordering Facility: [facility] Address: [address] [place] [address] Performed By: #### 5 7021-8 #### [facility] CLIA [id number] [address] [place] [address] [place] MCH (RBC) [Entitic mass] 31.6 pg Normal 26.0-34.0 [facility] Comment on above: Order Comment: Speci men Type: BLOOD SPECIMEN Ordering Facility: [facility] Address: [address] [place] [address] Performed By: #### 5 7021-8 #### [facility] CLIA [id number] [address] [place] [address] [place] MCHC (RBC) [Mass/Vol] 32.2 g/dL Normal 30.5-36.0 [facility] Comment on above: Order Comment: Speci men Type: BLOOD SPECIMEN Ordering Facility: [facility] Address: [address] [place] [address] Performed By: #### 5 7021-8 #### [facility] CLIA [id number] [address] [place] [address] [place] MCV (RBC) [Entitic vol] 98.1 fL Normal 80.0-100.0 C [facility] Comment on above: Order Comment: Speci men Type: BLOOD SPECIMEN Ordering Facility: [facility] Address: [address] [place] [address] Performed By: #### 5 7021-8 #### [facility] CLIA [id number] [address] [place] [address] [place] Monocytes (Bld) [#/Vol] 0.70 10*3/uL Normal <0.87 [facility] Comment on above: Order Comment: Speci men Type: BLOOD SPECIMEN Ordering Facility: [facility] Address: [address] [place] [address] Performed By: #### 5 7021-8 #### [facility] CLIA [id number] [address] [place] [address] [place] Monocytes/100 WBC (Bld) 9.6 % Normal [facility] Comment on above: Order Comment: Speci men Type: BLOOD SPECIMEN Ordering Facility: [facility] Address: [address] [place] [address] Performed By: #### 5 7021-8 #### [facility] CLIA [id number] [address] [place] [address] [place] Neutrophils (Bld) [#/Vol] 4.36 10*3/uL Normal 1.45-7.50 [facility] Comment on above: Order Comment: Speci men Type: BLOOD SPECIMEN Ordering Facility: [facility] Address: [address] [place] [address] Performed By: #### 5 7021-8 #### [facility] CLIA [id number] [address] [place] [address] [place] Neutrophils/100 WBC (Bld) 60.0 % Normal [facility] Comment on above: Order Comment: Speci men Type: BLOOD SPECIMEN Ordering Facility: [facility] Address: [address] [place] [address] Performed By: #### 5 7021-8 #### [facility] CLIA [id number] [address] [place] [address] [place] Nucleated RBC (Bld) [#/Vol] 10*3/uL Normal <0.01 [facility] Comment on above: Order Comment: Speci men Type: BLOOD SPECIMEN Ordering Facility: [facility] Address: [address] [place] [address] Performed By: #### 5 7021-8 #### [facility] CLIA [id number] [address] [place] [address] [place] Nucleated RBC/100 WBC (Bld) [Ratio] 0.0 /100 WBC Normal [facility] Comment on above: Order Comment: Speci men Type: BLOOD SPECIMEN Ordering Facility: [facility] Address: [address] [place] [address] Performed By: #### 5 7021-8 #### [facility] CLIA [id number] [address] [place] [address] [place] Platelet mean volume (Bld) [Entitic vol] 11.8 fL Normal 9.0-12.7 [facility] Comment on above: Order Comment: Speci men Type: BLOOD SPECIMEN Ordering Facility: [facility] Address: [address] [place] [address] Performed By: #### 5 7021-8 #### [facility] CLIA [id number] [address] [place] [address] [place] Platelets (Bld) [#/Vol] 239 10*3/uL Normal 150-400 [facility] Comment on above: Order Comment: Speci men Type: BLOOD SPECIMEN Ordering Facility: [facility] Address: [address] [place] [address] Performed By: #### 5 7021-8 #### [facility] CLIA [id number] [address] [place] [address] [place] RBC (Bld) [#/Vol] 3.74 10*6/uL Low 3.90-5.20 [facility] Comment on above: Order Comment: Speci men Type: BLOOD SPECIMEN Ordering Facility: [facility] Address: [address] [place] [address] Performed By: #### 5 7021-8 #### [facility] CLIA [id number] [address] [place] [address] [place] WBC (Bld) [#/Vol] 7.28 10*3/uL Normal 3.70-11.00 [facility] Comment on above: Order Comment: Speci men Type: BLOOD SPECIMEN Ordering Facility: [facility] Address: [address] [place] [address] Performed By: #### 5 7021-8 #### [facility] CLIA [id number] [address] [place] [address] [place] CNOVon 07-17-2024 CNOV Office Visit (INTMWS ) JAROD PRITCHARD ([id number]) 1940 F Date Time Provider Department 07/17/24 10:00 AM ANASTASIIA COLÓN INTMENDY During your visit today, we recorded the following information about you: Pulse Respiration Blood pressure Weight 60/minute 16/minute 131/65 64 kg Anastasiia Colón APRN.CNS 07/17/2024 10:47 AM Signed SUBJECTIVE: Diabetic Foot Exam due on 08/10/2023 Advance Directive Discussion due on 05/02/2024 HbA1C due on 06/28/2024 HPI Jarod Pritchard is a 83 year old female. [...] her previous visit: She was admitted to [facility] March 19 through April 05. She [...] rehab for debility. Discharged to home with [facility] home care. Today reports eating and drinking normally. No bowel or bladder complaints. She has [place] home health care coming out to her home. She has an appointment coming up with her glass washer Dr. Blanca. She reports no upcoming appointment [...] kg (141 lb 1.5 oz) BMI 25.40 kg/m? Physical Exam Vitals and nursing note reviewed. Constitutional: Appearance: Normal appearance. HENT: Head: Normocephalic and atraumatic. Right Ear: Tympanic membrane and ear canal normal. Left Ear: Tympanic membrane normal. Nose: Rhinorrhea present. Mouth/Throat: Lips: [employer]. Mouth: Mucous membranes are moist. Pharynx: Oropharynx [...] once daily. tiZANidine (ZANAFLEX) 4 mg tablet T (more content not included)... Normal [facility] HbA1c (Bld)on 07-17-2024 Average glucose Estimated from glycated hemoglobin (Bld) [Mass/Vol] 114 mg/dL Normal [facility] Comment on above: Order Comment: Speci men Type: BLOOD SPECIMEN Ordering Facility: [facility] Address: [address] [place] [address] Result Comment: eAG: (Estimated average glucose) is a calculated value from HgbA1c and is customer development representative of the average blood glucose level in the last 2-3 month period. Performed By: #### 5 5454-3 #### [facility] CLIA [id number] [address] [place] [address] [place] HbA1c (Bld) [Mass fraction] 5.6 % Normal 4.3-5.6 [facility] Comment on above: Order Comment: Miguel cunningham Type: BLOOD SPECIMEN Ordering Facility: [facility] Address: [address] [place] [address] Result Comment: [place] Diabetes Association guidelines indicate that patients with HgbA1c in the range 5.7-6.4% are at increased risk for development of diabetes, and intervention by lifestyle modification may be beneficial. HgbA1c greater or equal to 6.5% is considered diagnostic of diabetes. Performed By: #### 5 5454-3 #### [facility] CLIA [id number] [address] [place] [address] [place] TSH W/REFLEX FT4on 5 TSH Qn 2.660 m[IU]/L Normal 0.270-4.200 [facility] Comment on above: Order Comment: Miguel cunningham Type: BLOOD SPECIMEN Ordering Facility: [facility] Address: [address] [place] [address] Performed By: #### T [facility], 81285-4 #### [facility] CLIA [id number] [address] [place] [address] [place] Anion gap in Serum or Plasma Ordered By: Dominick Harrell on 07-10-2024 Anion gap [Moles/Vol] 14 mmol/L 5-15 [facility] BUN/creatinine ratioOrdered By: Dominick Harrell on 07-10-2024 Urea nitrogen/Creatinine [Mass ratio] 24.8 mg/mg High - [facility] Basic Metabolic Profile (BMP )on 07-10-2024 BUN/CRE 24.8 RATIO High - [facility] Comment on above: Performed By: #### L 500.2500 ####[facility] [address] [place], [address] Calcium [Mass/Vol] 9.6 mg/dL Normal 7.6-11.0 [facility] Comment on above: Performed By: #### L 500.2500 ####[facility] [address] [place], [address] Chloride [Moles/Vol] 99 mmol/L Normal 98-108 [facility] Comment on above: Performed By: #### L 500.2500 ####[facility] [address] [place], [address] CO2 [Moles/Vol] 24.0 mmol/L Normal 21.0-32.0 [facility] Comment on above: Performed By: #### L 500.2500 ####[facility] [address] [place], [address] Creatinine [Mass/Vol] 1.01 mg/dL Normal 0.70-1.20 [facility] Comment on above: Performed By: #### L 500.2500 ####[facility] [address] [place], [address] GAP 14 Normal 5-15 [facility] Comment on above: Performed By: #### L 500.2500 ####[facility] [address] [place], [address] GFR/1.73 sq M.predicted among non-blacks MDRD (S/P/Bld) [Vol rate/Area] 55 mL/min/{1.73_m2} Low >60 [facility] Comment on above: Result Comment: mL/m in/1.73m2 CKD-EPI Creatinine Equation (2020) Performed By: #### L 500.2500 ####[facility] [address] [place], [address] Glucose [Mass/Vol] 181 mg/dL High 70-99 [facility] Comment on above: Performed By: #### L 500.2500 ####[facility] [address] [place], [address] Potassium [Moles/Vol] 2.9 mmol/L Low 3.3-5.1 [facility] Comment on above: Performed By: #### L 500.2500 ####[facility] [address] [place], [place], [id number] Sodium [Moles/Vol] 136 mmol/L Normal 133-145 [facility] Comment on above: Performed By: #### L 500.2500 ####[facility] [address] [place], [place], [id number] Urea nitrogen [Mass/Vol] 25 mg/dL High 4-19 [facility] Comment on above: Performed By: #### L 500.2500 ####[facility] [address] [place], [place], [id number] Carbon dioxide, total [Moles /volume] in Central venous bloodOrdered By: Dominick Harrell on 07-10-2024 CO2 [Moles/Vol] 24.0 mmol/L 21.0-32.0 [facility] Chloride assayOrdered By: Cary Harrell on 07-10-2024 Chloride [Moles/Vol] 99 mmol/L 98-108 [facility] GFR/1.73 sq M.predicted rylie g non-blacks MDRD (S/P/Bld) [Vol rate/Area]Ordered By: Dominick Harrell on 07-10-2024 Estimated GFR (MDRD) Non-Af Amer 55 Low >60 [facility] Comment on above: mL/min/1.73m2 CKD-EP I Creatinine Equation (2020) Glomerular filtration rate ( GFR) estimation/1.73 sq m using serum, plasma, or whole bOrdered By: Dominick Harrell on 07-10-2024 GFR/1.73 sq M.predicted among non-blacks MDRD (S/P/Bld) [Vol rate/Area] 55 mL/min/{1.73_m2} Low >60 [facility] Comment on above: mL/min/1.73m2 CKD-EP I Creatinine Equation (2020) Potassium (Unsp spec) [Mass/ Vol]Ordered By: Dominick Harrell on 07-10-2024 Potassium [Moles/Vol] 2.9 mmol/L Low 3.3-5.1 [facility] Potassium measurement (mass/ volume)Ordered By: Dominick Harrell on 07-10-2024 Potassium (Unsp spec) [Mass/Vol] 2.9 mmol/L Low 3.3-5.1 [facility] Serum creatinine measurement (mass/volume)Ordered By: Dominick Harrell on 07-10-2024 Creatinine [Mass/Vol] 1.01 mg/dL 0.70-1.20 [facility] Serum glucose measurement (m ass/volume)Ordered By: Dominick Harrell on 07-10-2024 Glucose [Mass/Vol] 181 mg/dL High 70-99 [facility] Serum or plasma calcium walker urement (mass/volume)Ordered By: Dominick Harrell on 07-10-2024 Calcium [Mass/Vol] 9.6 mg/dL 7.6-11.0 [facility] Serum or plasma urea nitroge n measurement (mass/volume)Ordered By: Dominick Harrell on 07-10-2024 Urea nitrogen [Mass/Vol] 25 mg/dL High 4-19 [facility] Sodium levelOrdered By: Dominick Harrell on 07-10-2024 Sodium [Moles/Vol] 136 mmol/L 133-145 [facility] [id number] 06-25-2024 M7400.3302 Normal [facility] Comment on above: Performed By: #### M 100.6795, M100.637, M600.5000, M7400.3302, M100.6796, L7000.0700 ####[facility] [address] [place], [place], [address] Ova and Parasites 8623on OP Normal [facility] Comment on above: Performed By: #### M 100.6795, M100.637, M600.5000, M7400.3302, M100.6796, L7000.0700 ####[facility] [address] [place], [address] Calprotectin, Stoolon [address] 412 ug/g Abnormal 0-120 [facility] Comment on above: Result Comment: Conc entration Interpretation Follow-Up< 5 - 50 ug/g Normal None>50 -120 ug/g Borderline Re-evaluate in 4-6 weeks >120 ug/g Abnormal Repeat as clinically indicatedPerformed at: - [facility] [id number] [place], [place] [id number] Director: Tom Colon MD, Phone: [phone] Performed By: #### M 100.6795, M100.637, M600.5000, M7400.3302, M100.6796, L7000.0700 ####[facility] [address], [address] C. difficile DNA MARCOS+probe Q l (Unsp spec)Ordered By: Ese Hillman on 06-20-2024 Clostridioides difficile (PCR) [facility] C. difficile Ql (Stl)Ordered By: Ese Hillman on 06-20-2024 C. difficile GDH Antigen & Toxins [facility] CDIFF (PCR)on 06-20-2024 CDIFF NA 027 NEGATIVE C. Diff PCR A Positive-Toxigenic C. Difficile Detected A Normal [facility] Comment on above: Performed By: #### M 100.6795, M100.637, M600.5000, M7400.3302, M100.6796, L7000.0700 ####[facility] [address] [place], [place], [address] Calprotectin stoolOrdered By : Ese Hillman on 06-20-2024 Calprotectin stool 412 ug/g High 0-120 [facility] Comment on above: Concentration Interp retation Follow-Up< 5 - 50 ug/g Normal None>50 -120 ug/g Borderline Re-evaluate in 4-6 weeks >120 ug/g Abnormal Repeat as clinically indicatedPerformed at: [facility] [address] [id number] Director: Tom Colon MD, Phone: [phone] Stool Calprotectin 412 ug/g High 0-120 [facility] Comment on above: Concentration Interp retation Follow-Up< 5 - 50 ug/g Normal None>50 -120 ug/g Borderline Re-evaluate in 4-6 weeks >120 ug/g Abnormal Repeat as clinically indicatedPerformed at: [facility] [address] [id number] Director: Tom Colon MD, Phone: [phone] Cardiology Visit Reporton Cardiology Visit Report Normal [facility] Clostridium Diff Toxin/Agon 06-20-2024 CDIFF (EIA) Normal [facility] Comment on above: Performed By: #### M 100.6795, M100.637, M600.5000, M7400.3302, M100.6796, L7000.0700 ####[facility] [address] [place], [address] Clostridium difficile detect ion by polymerase chain reactionOrdered By: Ese Hillman on 06-20-2024 C. difficile DNA MARCOS+probe Ql (Unsp spec) [facility] ENTERIC PATHOGEN PANEL STOOL on 06-20-2024 EP PANEL Normal [facility] Comment on above: Performed By: #### M 100.6795, M100.637, M600.5000, M7400.3302, M100.6796, L7000.0700 ####[facility] [address] [place], [place], [id number] Giardia lamblia antigen assa y by enzyme immunoassayOrdered By: Ese Hillman on 06-20-2024 Giardia Antigen (LATANYA) [facility] Ova and parasitesOrdered By: Ese Hillman on 06-20-2024 Ova and Parasites [facility] Stool Clostridium difficile detectionOrdered By: Ese Hillman on 06-20-2024 C. difficile Ql (Stl) [facility] Stool enteric pathogen panel by probe and target amplification methodOrdered By: Ese Hillman on 06-20-2024 Enteric Bacteriology [facility] Gastroenterology Visit Repor ton 06-19-2024 Gastroenterology Visit Report Normal [facility] [id number] 06-18-2024 [facility] Misc. [facility] Comment on above: Order Comment: [id number] 4STOOL CULTURE Result Comment: STOO L CULTURESalmonella/Shigella Screen Final ReportResult 1 NO Salmonella or Shigella recovered.Campylobacter Culture Final ReportResult 1 NO Campylobacter species isolated.E. coli Shiga Toxin EIA NEGATIVE ___ TESTING PERFORMED AT [facility]. ORIGINAL REPORT ON FILE IN LAB CONTAINS ADDITIONAL TEST SITE INFORMATION. Performed By: #### L 3410.9998 ####[facility] [address] [place], [address] MR/Rasheeda 06-12-2024 /BMSSuryJo Ann [facility] CNOVon 06-04-2024 CNOV Office Visit (TONI ) JAROD PRITCHARD ([id number]) 1940 F Date Time Provider Department 06/04/24 11:40 AM TERRENCE JANE During your visit today, we recorded the following information about you: Pulse Respiration Blood pressure Weight 63/minute 12/minute 142/64 64.9 kg Height 1.588 m Terrence Jane MD 06/04/2024 12:38 PM Signed Terrence Jane MD Interventional Cardiology [address] [place], [place] [phone] Chief Complaint Patient presents with: Follow Up: [...] weakness and headaches. Endo/Heme/Allergies: Negative for environmental all (more content not included)... Normal [facility]2024 [facility] JAROD PRITCHARD ([id number]) 1940 F Date Time Provider Department 05/29/24 DAYLIN DELGADO During your visit today, we recorded the following information about you: Ike Ramos RN 05/29/2024 9:53 AM Signed Patient scheduled for OV 04/04/25, spoke with patient she was able to see Dr. Rojas and no longer needs the appt with Allergies As of Date: 05/29/2024 Noted Allergy Reaction ACCUPRIL (QUINAPRIL) 04/14/2015 16 - Unknown CALAN (VERAPAMIL) 04/14/2015 16 - Unknown CYMBALTA (DULOXETINE) 03/01/2024 5 - Intolerance Comments: dizziness LOTENSIN (BENAZEPRIL HCL) 04/14/2015 16 - Unknown SULFA (SULFONAMIDE ANTIBIOTICS) 04/14/2015 16 - Unknown Date Reviewed: 05/12/2024 Reviewed by: Nallely An, RN - Fully Assessed Reason for Visit: Appointment [186] Prescriptions as of 05/29/2024 - potassium chloride ER (KLOR-CON) 20 mEq tablet Take 1 tablet by mouth two times a day. - warfarin (COUMADIN) 2 mg tablet Take 2 tablets by mouth once daily. - metoprolol succinate ER (TOPROL XL) 50 mg 24 hr tablet Take 0.5 tablets by mouth once daily. - gabapentin (NEURONTIN) 100 mg capsule Take 1 capsule by mouth two times a day for 180 days. - clopidogrel (PLAVIX) 75 mg tablet Take 1 tablet by mouth once daily. - tiZANidine (ZANAFLEX) 2 mg tablet TAKE 2 TABLETS BY MOUTH EVERY 8 HOURS NEEDED FOR MUSCLE SPASM FOR 30 DAYS - oxyCODONE IR (ROXICODONE) 5 mg immediate release tablet TAKE 2 TABLETS BY MOUTH EVERY 4 HOURS NEEDED FOR PAIN SCORE (4-10) FOR 7 DAYS - magnesium chloride 64 mg magnesium tab Take 2 tablets by mouth once daily. - pantoprazole DR (PROTONIX) 40 mg tablet Take 1 tablet by mouth every 12 hours. - sertraline (ZOLOFT) 25 mg tablet Take 1 tablet by mouth once daily. - furosemide (LASIX) 40 mg tablet Take 1 tablet by mouth once daily. - acetaminophen (TYLENOL) 500 mg tablet 1,000 mg. - docusate sodium (STOOL SOFTENER ORAL) Take by mouth. - glimepiride (AMARYL) 2 mg tablet Take 1 tablet by mouth daily with breakfast. Check blood sugars daily, if remaining above 200 consistently in 2 to 4 weeks will increase the dose - Miscellaneous Medical Supply Take 1 Each by mouth two times a day. Biote [place] 3+CoQ10 --30 mg of CoQ10 - oxybutynin ER (DITROPAN XL) 10 mg 24 hr tablet Take 1 tablet by mouth once daily. - simvastatin (ZOCOR) 80 mg tablet Take 1 tablet by mouth daily at bedtime. - fluticasone (FLONASE) 50 mcg/actuation nasal spray Use 2 Sprays in each nostril once daily. - ferrous sulfate 325 mg (65 mg iron) tablet Take 325 mg by mouth. 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, [address] CA,Total 9.3 mg/dL Normal 8.5-10.1 [facility] Comment on above: Performed By: #### L 500.2500 ####[facility] [address] [place], [address] Chloride [Moles/Vol] 108 mmol/L High 98-107 [facility] Comment on above: Performed By: #### L 500.2500 ####[facility] [address] [place], [address] CO2 [Moles/Vol] 22.0 mmol/L Normal 21.0-32.0 [facility] Comment on above: Performed By: #### L 500.2500 ####[facility] [address] [place], [address] Creatinine [Mass/Vol] 1.13 mg/dL High 0.55-1.02 [facility] Comment on above: Result Comment: The validity of the calculated GFR GFRAA in patients over70 years has not been determined. Clinical correlation isessential. Performed By: #### L 500.2500 ####[facility] [address] [place], [address] EST GFR - AA 59 mL/min Low >60 [facility] Comment on above: Result Comment: Afri can Trin[place] GFR Calc Performed By: #### L 500.2500 ####[facility] [address] [place], [address] GAP 6 Normal 5-15 [facility] Comment on above: Performed By: #### L 500.2500 ####[facility] [address] [place], [address] GFR/1.73 sq M.predicted among non-blacks MDRD (S/P/Bld) [Vol rate/Area] 49 mL/min/{1.73_m2} Low >60 [facility] Comment on above: Result Comment: Non- GFR Calc Performed By: #### L 500.2500 ####[facility] [address] [place], [address] Glucose [Mass/Vol] 182 mg/dL High 74-106 [facility] Comment on above: Result Comment: Fast ing Glucose result greater than or equal to 126 mg/dLsuggests DIABETES MELLITUS per A.D.A. criteria. Performed By: #### L 500.2500 ####[facility] [address] [place], [address] Potassium [Moles/Vol] 4.5 mmol/L Normal 3.5-5.1 [facility] Comment on above: Performed By: #### L 500.2500 ####[facility] [address] [place], [address] Sodium [Moles/Vol] 136 mmol/L Normal 136-145 [facility] Comment on above: Performed By: #### L 500.2500 ####[facility] [address] [place], [address] Urea nitrogen [Mass/Vol] 36 mg/dL High 7-18 [facility] Comment on above: Performed By: #### L 500.2500 ####[facility] [address] [place], [address] Blood urea nitrogen (BUN)/cr eatinine ratioOrdered By: Roly Herrera on 05-28-2024 Urea nitrogen/Creatinine [Mass ratio] 31.9 mg/mg High 10-20 [facility] Carbon dioxide measurementOr dered By: Roly Herrera on 05-28-2024 CO2 [Moles/Vol] 22.0 mmol/L 21.0-32.0 [facility] Chloride measurementOrdered By: Roly Herrera on 05-28-2024 Chloride [Moles/Vol] 108 mmol/L High 98-107 [facility] Estimated glomerular filtrat ion rate (GFR) AmericanOrdered By: Roly Herrera on 05-28-2024 Estimated GFR (MDRD) Amer 59 mL/min Low >60 [facility] Comment on above: GFR Calc Glomerular filtration rate ( GFR) estimationOrdered By: Roly Herrera on 05-28-2024 Estimated GFR (MDRD) Non-Af Amer 49 mL/min Low >60 [facility] Comment on above: Non- GFR Calc Glucose measurementOrdered B y: Roly Herrera on 05-28-2024 Glucose [Mass/Vol] 182 mg/dL High 74-106 [facility] Comment on above: Fasting Glucose resu lt greater than or equal to 126 mg/dL suggests DIABETES MELLITUS per A.D.A. criteria. Potassium measurementOrdered By: Roly Herrera on 05-28-2024 Potassium [Moles/Vol] 4.5 mmol/L 3.5-5.1 [facility] Serum anion gap measurementO rdered By: Roly Herrera on 05-28-2024 Anion gap [Moles/Vol] 6 mmol/L 5-15 [facility] Serum or plasma calcium walker urement (mass/volume)Ordered By: Roly Herrera on 05-28-2024 Calcium [Mass/Vol] 9.3 mg/dL 8.5-10.1 [facility] Serum or plasma creatinine m easurement (mass/volume)Ordered By: Roly Herrera on 05-28-2024 Creatinine [Mass/Vol] 1.13 mg/dL High 0.55-1.02 [facility] Comment on above: The validity of the calculated GFR & GFRAA in patients over 70 years has not been determined. Clinical correlation is essential. Serum or plasma urea nitroge n measurement (mass/volume)Ordered By: Roly Herrera on 05-28-2024 Urea nitrogen [Mass/Vol] 36 mg/dL High 7-18 [facility] Sodium levelOrdered By: Reymundo Herrera on 05-28-2024 Sodium [Moles/Vol] 136 mmol/L 136-145 [facility] Art Duplex Unilat Lower E xton 05-28-2024 Art Duplex Unilat Lower Ext Normal [facility] CNPNon 05-23-2024 CNPN Telephone (INTMWS) WADEJAROD NUÑEZ ([id number]) 1940 F Date Time Provider Department 05/23/24 KIERRA SANTIAGO During your visit today, we recorded the following information about you: Emily Bustos LPN 05/23/2024 11:25 AM Signed Last INR: INR (POCT) 2.1 05/23/2024 Current dose of coumadin is: 3 mg TH and Tue and 2 mg all other days. Last date of dose change: 05/16/24. Previous INR (date and result): 05/16/24 1.5 Additional Clinical Information or narrative: no nothing to reports per Qaism. Denies any bleeding, bruising, change in medications, change in diet Please advise pt with results and advise on coumadin. Notified Qasim if he needs to repeat INR next Tuesday when he sees opt again. Emily Bustos LPN ROUTING TO PROVIDER TOXICOLOGIST DR. KOCH. PT'S PROVIDER /TEAM IS OUT. VERNON Castellanos Christopher B, MD 05/23/2024 11:48 AM Signed INR therapeutic. Continue current coumadin dosage and follow up in 2 weeks. Concetta Sanchez LPN 05/23/2024 12:00 PM Signed Phoned patient and reviewed message with her and she voiced understanding by repeating back the orders. 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 - warfarin (COUMADIN) 2 mg tablet Take 2 tablets by mouth once daily. - metoprolol succinate ER (TOPROL XL) 50 mg 24 hr tablet Take 0.5 tablets by mouth once daily. - gabapentin (NEURONTIN) 100 mg capsule Take 1 capsule by mouth two times a day for 180 days. - clopidogrel (PLAVIX) 75 mg tablet Take 1 tablet by mouth once daily. - tiZANidine (ZANAFLEX) 2 mg tablet TAKE 2 TABLETS BY MOUTH EVERY 8 HOURS NEEDED FOR MUSCLE SPASM FOR 30 DAYS - oxyCODONE IR (ROXICODONE) 5 mg immediate release tablet TAKE 2 TABLETS BY MOUTH EVERY 4 HOURS NEEDED FOR PAIN SCORE (4-10) FOR 7 DAYS - magnesium chloride 64 mg magnesium tab Take 2 tablets by mouth once daily. - pantoprazole DR (PROTONIX) 40 mg tablet Take 1 tablet by mouth every 12 hours. - sertraline (ZOLOFT) 25 mg tablet Take 1 tablet by mouth once daily. - furosemide (LASIX) 40 mg tablet Take 1 tablet by mouth once daily. - acetaminophen (TYLENOL) 500 mg tablet 1,000 mg. - docusate sodium (STOOL SOFTENER ORAL) Take by mouth. - glimepiride (AMARYL) 2 mg tablet Take 1 tablet by mouth daily with breakfast. Check blood sugars daily, if remaining above 200 consistently in 2 to 4 weeks will increase the dose - Miscellaneous Medical Supply Take 1 Each by mouth two times a day. Biote [place] 3+CoQ10 --30 mg of CoQ10 - oxybutynin ER (DITROPAN XL) 10 mg 24 hr tablet Take 1 tablet by mouth once daily. - simvastatin (ZOCOR) 80 mg tablet Take 1 tablet by mouth daily at bedtime. - fluticasone (FLONASE) 50 mcg/actuation nasal spray Use 2 Sprays in each nostril once daily. - ferrous sulfate 325 mg (65 mg iron) tablet Take 325 mg by mouth. 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] 04/17/2024 Encounter Status:Closed by CONCETTA SANCHEZ on 05/23/24 Normal [facility] PT panel Coag (PPP)on 2024 INR Coag (Bld) [Relative time] 2.1 {INR} [facility] CNPNon 05-21-2024 CNPN Telephone (CARDWS) JAROD PRITCHARD ([id number]) 1940 F Date Time Provider Department 05/21/24 TERRENCE JANE During your visit today, we recorded the following information about you: Jessica Raymundo RN 05/21/2024 5:12 PM Signed ----- Message from Terrence Jane MD sent at 05/18/2024 5:37 PM EST ----- Normal Echo Please Inform the patient Jessica Montero RN 05/21/2024 5:13 PM Signed Patient called and notified. Jessica Raymundo RN Allergies As of Date: 05/21/2024 Noted Allergy Reaction ACCUPRIL (QUINAPRIL) 04/14/2015 16 - Unknown CALAN (VERAPAMIL) 04/14/2015 16 - Unknown CYMBALTA (DULOXETINE) 03/01/2024 5 - Intolerance Comments: dizziness LOTENSIN (BENAZEPRIL HCL) 04/14/2015 16 - Unknown SULFA (SULFONAMIDE ANTIBIOTICS) 04/14/2015 16 - Unknown Date Reviewed: 05/12/2024 Reviewed by: Nallely An RN - Fully Assessed Reason for Visit: Results [95] Prescriptions as of 05/21/2024 - potassium chloride ER (KLOR-CON) 20 mEq tablet Take 1 tablet by mouth two times a day. - warfarin (COUMADIN) 2 mg tablet Take 2 tablets by mouth once daily. - metoprolol succinate ER (TOPROL XL) 50 mg 24 hr tablet Take 0.5 tablets by mouth once daily. - gabapentin (NEURONTIN) 100 mg capsule Take 1 capsule by mouth two times a day for 180 days. - clopidogrel (PLAVIX) 75 mg tablet Take 1 tablet by mouth once daily. - tiZANidine (ZANAFLEX) 2 mg tablet TAKE 2 TABLETS BY MOUTH EVERY 8 HOURS NEEDED FOR MUSCLE SPASM FOR 30 DAYS - oxyCODONE IR (ROXICODONE) 5 mg immediate release tablet TAKE 2 TABLETS BY MOUTH EVERY 4 HOURS NEEDED FOR PAIN SCORE (4-10) FOR 7 DAYS - magnesium chloride 64 mg magnesium tab Take 2 tablets by mouth once daily. - pantoprazole DR (PROTONIX) 40 mg tablet Take 1 tablet by mouth every 12 hours. - sertraline (ZOLOFT) 25 mg tablet Take 1 tablet by mouth once daily. - furosemide (LASIX) 40 mg tablet Take 1 tablet by mouth once daily. - acetaminophen (TYLENOL) 500 mg tablet 1,000 mg. - docusate sodium (STOOL SOFTENER ORAL) Take by mouth. - glimepiride (AMARYL) 2 mg tablet Take 1 tablet by mouth daily with breakfast. Check blood sugars daily, if remaining above 200 consistently in 2 to 4 weeks will increase the dose - Miscellaneous Medical Supply Take 1 Each by mouth two times a day. [employer]ote [place] 3+CoQ10 --30 mg of CoQ10 - oxybutynin ER (DITROPAN XL) 10 mg 24 hr tablet Take 1 tablet by mouth once daily. - simvastatin (ZOCOR) 80 mg tablet Take 1 tablet by mouth daily at bedtime. - fluticasone (FLONASE) 50 mcg/actuation nasal spray Use 2 Sprays in each nostril once daily. - ferrous sulfate 325 mg (65 mg iron) tablet Take 325 mg by mouth. 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 Qasim also reports that patient saw Dr. Roly Herrera Fore[employer]aster and patient was started on losartan/hctz 100-12.5 daily. Last INR: INR (POCT) 1.5 (ext) 05/16/2024 Current dose of coumadin is: 2 mg Daily. Last date of dose change: 04/23/2024 . Previous INR (date and result): 05/09/2024 1.9 Additional Clinical Information or narrative: no No changes in Diet. No signs/symptoms of bleeding or bruising. Kierra Santiago MD 05/16/2024 7:22 PM Addendum Noted med adjustment per cardiology. How will patient get INR after HHN no longer following. Noted INR down again. Take 3 mg then increase to 2 mg daily except 3 mg on Sundays. INR next Tuesday Arely Townsend RN 05/17/2024 1:35 PM Signed Called and left a detailed voicemail notifying Qasim from [facility] HH of providers message. Clinic phone number was left in case he had any questions. Pt called and is notified of providers results and instructions. Pt voices understanding. She states she will come back to the [facility] when she doesn't have HH anymore. Updated Anticoag tracker. 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 - warfarin (COUMADIN) 2 mg tablet Take 2 tablets by mouth once daily. - metoprolol succinate ER (TOPROL XL) 50 mg 24 hr tablet Take 0.5 tablets by mouth once daily. - gabapentin (NEURONTIN) 100 mg capsule Take 1 capsule by mouth two times a day for 180 days. - clopidogrel (PLAVIX) 75 mg tablet Take 1 tablet by mouth once daily. - tiZANidine (ZANAFLEX) 2 mg tablet TAKE 2 TABLETS BY MOUTH EVERY 8 HOURS NEEDED FOR MUSCLE SPASM FOR 30 DAYS - oxyCODONE IR (ROXICODONE) 5 mg immediate release tablet TAKE 2 TABLETS BY MOUTH EVERY 4 HOURS NEEDED FOR PAIN SCORE (4-10) FOR 7 DAYS - magnesium chloride 64 mg magnesium tab Take 2 tablets by mouth once daily. - pantoprazole DR (PROTONIX) 40 mg tablet Take 1 tablet by mouth every 12 hours. - sertraline (ZOLOFT) 25 mg tablet Take 1 tablet by mouth once daily. - furosemide (LASIX) 40 mg tablet Take 1 tablet by mouth once daily. - acetaminophen (TYLENOL) 500 mg tablet 1,000 mg. - docusate sodium (STOOL SOFTENER ORAL) Take by mouth. - glimepiride (AMARYL) 2 mg tablet Take 1 tablet by mouth daily with breakfast. Check blood sugars daily, if remaining above 200 consistently in 2 to 4 weeks will increase the dose - Miscellaneous Medical Supply Take 1 Each by mouth two times a day. [employer] [place] 3+CoQ10 --30 mg of CoQ10 - oxybutynin ER (DITROPAN XL) 10 mg 24 hr tablet Take 1 tablet by mouth once daily. - simvastatin (ZOCOR) 80 mg tablet Take 1 tablet by mouth daily at bedtime. - fluticasone (FLONASE) 50 mcg/actuation nasal spray Use 2 Sprays in each nostril once daily. - ferrous sulfate 325 mg (65 mg iron) tablet Take 325 mg by mouth. 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] 04/17/2024 Encounter Status:Closed by PRERNA SALGADO on 05/18/24 Normal [facility] PT panel Coag (PPP)on 2024 INR Coag (Bld) [Relative time] 1.5 (ext) 2.0 - 3.0 [facility] 12 Lead EKG performed by BMS on 05-14-2024 12 Lead EKG performed by BMS Normal [facility] Cardiology Visit Reporton Cardiology Visit Report Normal [facility] CNPNon 05-09-2024 CNPN Telephone (INTMWS) JAROD PRITCHARD ([id number]) 1940 F Date Time Provider Department 05/09/24 KIERRA SANTIAGO INTMWS During your visit today, we recorded the following information about you: Noemi Cullen, XOCHILT 05/09/2024 1:28 PM Addendum Qasim, Nurse with [facility] calling with an update on patient. Reports today's home INR is 1.9. Patient taking warfarin 1 mg Tues and Fri and 2 mg all other days. Please advise patient with orders. Last INR: INR (POCT) 1.9 (ext) 05/09/2024 Current dose of coumadin is: 1 mg Tues and Fri and 2 mg all other days Last date of dose change: 12/23/24. Previous INR (date and result): 2.5 (ext) 05/01/24 Additional Clinical Information or narrative: no Qasim also reports pt's blood pressures have been fluctuating drastically over the past 2 weeks. This morning BP was 92/48, yesterday was 117/54. Other times within the past 2 weeks her BP has went up to 180's/80's. Patient currently taking Furosemide 40 mg every morning and Metoprolol ER 25 mg every evening. Does have a little lightheadedness when BP's are lower. Pt sees Vascular and has head and neck CT ordered for 05/18. Sees cardiology on 06/04.Nurse Qasim states he is having patient log her BP every morning and evening and HH nurse to visit pt again next Tuesday. Please call Qasim with any new orders, . XOCHILT Oliveira Liza D, MD 05/09/2024 2:15 PM Signed Stay on same dose and recheck INR in 1 week Noted BP labile. Stay on same dose but if SBP is below 100, may hold metoprolol evening dose (If BP the next AM is high, can take metoprolol dose then). She can review BPs with cardiology to see if they want to adjust meds otherwise. Warner Atkins LPN 05/09/2024 4:14 PM Signed PATIENT NOTIFIED OF SAME. Message left on Qasim's voicemail with the below instructions. Allergies As of Date: 05/09/2024 Noted Allergy Reaction ACCUPRIL (QUINAPRIL) 04/14/2015 16 - Unknown CALAN (VERAPAMIL) 04/14/2015 16 - Unknown CYMBALTA (DULOXETINE) 03/01/2024 5 - Intolerance Comments: dizziness LOTENSIN (BENAZEPRIL HCL) 04/14/2015 16 - Unknown SULFA (SULFONAMIDE ANTIBIOTICS) 04/14/2015 16 - Unknown Date Reviewed: 05/08/2024 Reviewed by: Nissa Ac OCCA - Fully Assessed Reason for Visit: Patient Update [1234] Anticoagulation [8] Order(s):PROTHROMBIN TIME [SQPT] Order #: [id number] Prescriptions as of 05/09/2024 - iv contrast (will be provided with radiology test) CTA Head/Neck W No IV access, insert saline lock prior to the sedation, infusion, injection for imaging exam. Discontinue saline lock post exam. If Pt. has a central line or IVAD, may access for administration according to line specific nursing protocol. Once exam is complete flush line and de-access according to line specific nursing protocol in the CT contrast administration guidelines link. - warfarin (COUMADIN) 2 mg tablet Take 2 tablets by mouth once daily. - metoprolol succinate ER (TOPROL XL) 50 mg 24 hr tablet Take 0.5 tablets by mouth once daily. - gabapentin (NEURONTIN) 100 mg capsule Take 1 capsule by mouth two times a day for 180 days. - clopidogrel (PLAVIX) 75 mg tablet Take 1 tablet by mouth once daily. - potassium chloride ER (KLOR-CON) 20 mEq tablet TWICE DAILY WITH MEALS - tiZANidine (ZANAFLEX) 2 mg tablet TAKE 2 TABLETS BY MOUTH EVERY 8 HOURS NEEDED FOR MUSCLE SPASM FOR 30 DAYS - oxyCODONE IR (ROXICODONE) 5 mg immediate release tablet TAKE 2 TABLETS BY MOUTH EVERY 4 HOURS NEEDED FOR PAIN SCORE (4-10) FOR 7 DAYS - magnesium chloride 64 mg magnesium tab Take 2 tablets by mouth once daily. - pantoprazole DR (PROTONIX) 40 mg tablet Take 1 tablet by mouth every 12 hours. - sertraline (ZOLOFT) 25 mg tablet Take 1 tablet by mouth once daily. - furosemide (LASIX) 40 mg tablet Take 1 tablet by mouth once daily. - acetaminophen (TYLENOL) 500 mg tablet 1,000 mg. - docusate sodium (STOOL SOFTENER ORAL) Take by mouth. - glimepiride (AMARYL) 2 mg tablet Take 1 tablet by mouth daily with breakfast. Check blood sugars daily, if remaining above 200 consistently in 2 to 4 weeks will increase the dose - Miscellaneous Medical Supply Take 1 Each by mouth two times a day. [employer] [place] 3+CoQ10 --30 mg of CoQ10 - oxybutynin ER (DITROPAN XL) 10 mg 24 hr tablet Take 1 tablet by mouth once daily. - simvastatin (ZOCOR) 80 mg tablet Take 1 tablet by mouth daily at bedtime. - fluticasone (FLONASE) 50 mcg/actuation nasal spray Use 2 Sprays in each nostril once daily. - ferrous sulfate 325 mg (65 mg iron) tablet Take 325 mg by mouth. Problem List As Of Date 05/09/2024 Noted Resolved Hyperlipidemia [E78.5] 07/01/2022 Primary hypertension [I10] 07/01/2022 Carotid atherosclerosis [I65.29] 07/01/2022 Subclinical hypothyroidism [E03.8] 07/01/2022 Fatty liver [K76.0] 07/01/2022 Heart murmur [R01.1] 07/01/2022 Type 2 diab (more content not included)... Normal [facility] PT panel Coag (PPP)on 2024 INR Coag (Bld) [Relative time] 1.9 {INR} [facility] Comment on above: EXT [facility] CNOVon 05-08-2024 CNOV Office Visit (ANJALISWS ) JAROD PRITCHARD ([id number]) 1940 F Date Time Provider Department 05/08/24 9:00 AM DAYLIN DELGADO During your visit today, we recorded the following information about you: Pulse Blood pressure 55/minute 117/54 Daylin Delgado DO 05/08/2024 9:29 AM Signed Heart , Vascular and Thoracic [place] DEPARTMENT OF VASCULAR SURGERY OUTPATIENT VISIT DATE [...] she underwent revascularization with Dr. Rojas at [facility]. At that time she was also diagnosed [...] by mouth two times a day. [employer] [place] 3+CoQ10 --30 mg of CoQ10 ALLERGIES: ALLERGIES [...] and antegrade flow noted. Subclavian artery: Patent. (more content not included)... Normal [facility] ECHOon 05-08-2024 Echocardiography Echocardiography Report: Transthoracic Echo [facility] Date of service: 05/08/2024 10:05:58 AM YIELD ENGINEER Ordering physician: TERRENCE JANE Indication: Ascending aortic aneurysm Technologist: Prerna Krause [facility] Interpreting physician: Eugene Christianson MD PATIENT: Name: JAROD PRITCHARD : 1940 Age: 83 years Gender: F History of hypertension, dyslipidemia and arrhythmia. Primary rhythm: sinus. Height: 158.80 cm BSA: 1.69 m Weight: 64.86 kg BMI: 25.7 kg/m Heart rate 54 bpm Blood pressure 142/65 mmHg Technically difficult exam due to suboptimal positioning and body habitus. Color Doppler was utilized to interrogate the cardiac valves assessed and spectral Doppler was utilized to determine the flow velocities and pressure gradients reported in this exam. MEASUREMENTS: Value Indexed Normal Max aortic dimension 4.1 cm Ao < 3.8 Left atrial volume 69 ml (biplane A-L) 41 ml/m Ariel <= 34 LV stroke volume 69 ml (2D biplane) LVOT stroke volume 53 ml 32 ml/m LV end diastolic volume 110 ml (2D biplane) 65.1 ml/m 29<=EDVi<62 LV end systolic volume 41 ml (2D biplane) 24.1 ml/m Ejection Fraction 63 % (2D biplane) EF > 54 FINDINGS: LEFT VENTRICLE The left ventricle is mildly dilated. Left ventricular systolic function is normal. Indeterminate left ventricular diastolic function. Wall Motion: All scored segments are normal. RIGHT VENTRICLE The right ventricle is normal in size. Right ventricular systolic function is normal. RV systolic tissue Doppler velocity is 11.0 cm/s. Tricuspid annular displacement is 1.9 cm. Estimated right ventricular systolic pressure is not reported due to an insufficient tricuspid regurgitation signal. Estimated right atrial pressure is 3 mmHg (although IVC not seen). LEFT ATRIUM The left atrial cavity is mildly dilated. RIGHT ATRIUM The right atrial cavity is normal in size. Inferior Vena Cava: The inferior vena cava appears normal measuring 1.6 cm. MITRAL VALVE There is moderate mitral annular calcification observed posterior. There is mild (1+ - 2+) mitral valve regurgitation. TRICUSPID VALVE The tricuspid valve leaflets are structurally normal. There is trace tricuspid valve regurgitation. AORTIC VALVE There is mild aortic valve stenosis caused by calcified valve. There is mild (1+) aortic valve regurgitation. Tricuspid aortic valve. There is mild thickening. There is mild calcification. The peak gradient is 14 mmHg (peak velocity = 183.8 cm/s). The mean gradient is 8 mmHg. The LVOT diameter is 1.9 cm. The aortic VTI is 44.3 cm. The mean velocity in the aortic valve is 129.3 cm/s. The dimensionless valve index is 0.42. AV area is 1.20 cm (0.71 cm /m ) by continuity, VTI. The LVOT stroke volume index is 32 ml/m . PULMONIC VALVE The pulmonic valve cusps are structurally normal. There is trace pulmonic valve regurgitation. AORTA The visualized aorta is dilated. Measurements - Mid ascending aorta 4.1 cm. Distal ascending aorta 4.1 cm. PERICARDIUM There is no pericardial effusion. There is an epicardial fat pad. CONCLUSIONS: - Technically difficult exam due to suboptimal positioning and body habitus. - Exam indication: Ascending aortic aneurysm - The left ventricle is mildly dilated. Left ventricular systolic function is normal. EF = 63 5% (2D biplane) Indeterminate left ventricular diastolic function. - The right ventricle is normal in size. Right ventricular systolic function is normal. - The left atrial cavity is mildly dilated. - The visualized aorta is dilated with a maximal dimension of 4.1 cm. - Exam was compared with the prior CC echocardiographic exam performed on 11/14/2023 (Stress). The mid and distal ascending aorta has slightly increased in size. * * * Final * * * [employer] [facility] : [id number] Normal [facility] CAROTID ARTERIES KWADWO VAS LABon 05-08-2024 CAROTID ARTERIES KWADWO VAS LAB Non-Invasive Vascular Laboratory [facility] Carotid Duplex Bilateral/Complete Date of service/time: 05/08/2024 8:01:22 AM Name: JAROD PRITCHARD Date of : 1940 Age: 83 years Gender: F Clinical Indication Follow-up study on a patient with known carotid disease. Status post right common carotid and internal carotid endarterectomy . TECHNIQUE -------- A carotid duplex ultrasound examination was performed, including grayscale imaging and color Doppler and spectral Doppler examination of the below mentioned arteries. FINDINGS -------- RIGHT SIDE Common carotid artery: Origin: PSV: 90 cm/s. EDV: 13 cm/s. Proximal: PSV: 88 cm/s. EDV: 13 cm/s. Mid: PSV: 77 cm/s. EDV: 12 cm/s. Distal: PSV: 86 cm/s. EDV: 19 cm/s. Mild heterogeneous plaque from mid to distal. Internal carotid artery: Origin: PSV: 97 cm/s. EDV: 16 cm/s. Proximal: PSV: 177 cm/s. EDV: 34 cm/s. Mid: PSV: 104 cm/s. EDV: 23 cm/s. Distal: PSV: 67 cm/s. EDV: 13 cm/s. Moderate heterogeneous plaque from origin to proximal. ICA/CCA Ratio: 2.1 External carotid artery: Origin: PSV: 176 cm/s. EDV: 0 cm/s. Mild heterogeneous plaque at origin. Subclavian artery: Origin: PSV: 216 cm/s. EDV: 0 cm/s. Mild heterogeneous plaque at origin. Innominate artery: PSV: 60 cm/s. EDV: 0 cm/s. Vertebral artery: PSV: 65 cm/s. EDV: 12 cm/s. LEFT SIDE Common carotid artery: Proximal: PSV: 60 cm/s. EDV: 10 cm/s. Mid: PSV: 69 cm/s. EDV: 9 cm/s. Distal: PSV: 51 cm/s. EDV: 7 cm/s. Mild heterogeneous plaque from mid to distal. Internal carotid artery: Origin: PSV: 519 cm/s. EDV: 77 cm/s. Proximal: PSV: 221 cm/s. EDV: 26 cm/s. Mid: PSV: 60 cm/s. EDV: 16 cm/s. Distal: PSV: 39 cm/s. EDV: 11 cm/s. Moderate heterogeneous calcified and shadowing plaque at origin. ICA/CCA Ratio: 10.2 External carotid artery: Origin: PSV: 260 cm/s. EDV: 17 cm/s. Moderate heterogeneous plaque at origin. Subclavian artery: Proximal: PSV: 108 cm/s. EDV: 0 cm/s. Vertebral artery: PSV: 43 cm/s. EDV: 8 cm/s. IMPRESSION Please note: the new carotid interpretation criteria are used as recommended by [employer] Commission. When compared with the prior study, of [...] and antegrade flow noted. Subclavian artery: Patent. Technologist: Madeleine Gayle RVT, [facility] Ordering physician: DAYLIN DELGADO Interpreting physician: AGUSTÍN Crow DO Final CC [employer] [facility] [employer] : [id number] micsSISUID See Link below for Image Normal [facility] 05-03-2024 CNPN Telephone (INTMWS) JAROD PRITCHARD ([id number]) 1940 F Date Time Provider Department 05/03/24 KIERRA SANTIAGO INTMWS During your visit today, we recorded the following information about you: Lisseth Vaughn, RN 05/03/2024 3:17 PM Signed Qasim [facility] nurse calling in as pt changed insurance companies as of 05/02/24 so he had to close her case on the and reopen it today under the new insurance. Calling in with Plan of Care of seeing pt 1 time per week for 3 weeks. Also reporting an asymptomatic BP of 176/80. States pt is taking her BP meds correctly. He states that pt's granddaughter is living with her and has a 6 y/o. The 6 y/o was running around yelling and Qasim feels pt's BP is up from anxiety and stress from the little girl's behavior and active environment. No need to return call unless orders. Anastasiia Colón APRN.BLUEPRINT MAKER 05/03/2024 3:21 PM Signed Monitor BP and let us know if remains elevated above 150 systolic Bekah Vivas LPN 05/03/2024 3:33 PM Signed Qasim [facility] nurse was notified of providers message and verbalized understanding. Allergies As of Date: 05/03/2024 Noted Allergy Reaction ACCUPRIL (QUINAPRIL) 04/14/2015 16 - Unknown CALAN (VERAPAMIL) 04/14/2015 16 - Unknown CYMBALTA (DULOXETINE) 03/01/2024 5 - Intolerance Comments: dizziness LOTENSIN (BENAZEPRIL HCL) 04/14/2015 16 - Unknown SULFA (SULFONAMIDE ANTIBIOTICS) 04/14/2015 16 - Unknown Date Reviewed: 04/23/2024 Reviewed by: Terrence Jane MD - Fully Assessed Reason for Visit: Home Care Management [1305] Prescriptions as of 05/03/2024 - potassium chloride ER (KLOR-CON) 20 mEq tablet TWICE DAILY WITH MEALS - tiZANidine (ZANAFLEX) 2 mg tablet TAKE 2 TABLETS BY MOUTH EVERY 8 HOURS NEEDED FOR MUSCLE SPASM FOR 30 DAYS - oxyCODONE IR (ROXICODONE) 5 mg immediate release tablet TAKE 2 TABLETS BY MOUTH EVERY 4 HOURS NEEDED FOR PAIN SCORE (4-10) FOR 7 DAYS - metoprolol succinate ER (TOPROL XL) 50 mg 24 hr tablet Take 0.5 tablets by mouth once daily. - magnesium chloride 64 mg magnesium tab Take 2 tablets by mouth once daily. - pantoprazole DR (PROTONIX) 40 mg tablet Take 1 tablet by mouth every 12 hours. - warfarin (COUMADIN) 2 mg tablet Take 2 tablets by mouth once daily. - clopidogrel (PLAVIX) 75 mg tablet Take 1 tablet by mouth once daily. - sertraline (ZOLOFT) 25 mg tablet Take 1 tablet by mouth once daily. - furosemide (LASIX) 40 mg tablet Take 1 tablet by mouth once daily. - acetaminophen (TYLENOL) 500 mg tablet 1,000 mg. - gabapentin (NEURONTIN) 100 mg capsule TWICE DAILY WITH MEALS - docusate sodium (STOOL SOFTENER ORAL) Take by mouth. - glimepiride (AMARYL) 2 mg tablet Take 1 tablet by mouth daily with breakfast. Check blood sugars daily, if remaining above 200 consistently in 2 to 4 weeks will increase the dose - Miscellaneous Medical Supply Take 1 Each by mouth two times a day. [employer] [place] 3+CoQ10 --30 mg of CoQ10 - oxybutynin ER (DITROPAN XL) 10 mg 24 hr tablet Take 1 tablet by mouth once daily. - simvastatin (ZOCOR) 80 mg tablet Take 1 tablet by mouth daily at bedtime. - fluticasone (FLONASE) 50 mcg/actuation nasal spray Use 2 Sprays in each nostril once daily. - ferrous sulfate 325 mg (65 mg iron) tablet Take 325 mg by mouth. 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 [...] Patient reports that bruising is getting smaller Kierra Santiago MD 05/01/2024 5:12 PM Signed Continue present dosing Recheck in 1 week Continue to monitor BP on present meds. Make sure patient staying hydrated. May drink 2 cups of water or other noncaffeinated fluid under 5 minute to get SBP up if gets low again under 90. Arely Townsend, XOCHILT 05/03/2024 8:10 AM Signed Called and left a detailed voicemail notifying Qasim from [facility] of providers message. Clinic phone number was left in case he had any questions. Arely Townsend RN Allergies As of Date: 05/01/2024 Noted Allergy Reaction ACCUPRIL (QUINAPRIL) 04/14/2015 16 - Unknown CALAN (VERAPAMIL) 04/14/2015 16 - Unknown CYMBALTA (DULOXETINE) 03/01/2024 5 - Intolerance Comments: dizziness LOTENSIN (BENAZEPRIL HCL) 04/14/2015 16 - Unknown SULFA (SULFONAMIDE ANTIBIOTICS) 04/14/2015 16 - Unknown Date Reviewed: 04/23/2024 Reviewed by: Terrence Jane MD - Fully Assessed Reason for Visit: Anticoagulation [8] Order(s):PROTHROMBIN TIME [SQPT] Order #: [id number] Prescriptions as of 05/03/2024 - potassium chloride ER (KLOR-CON) 20 mEq tablet TWICE DAILY WITH MEALS - tiZANidine (ZANAFLEX) 2 mg tablet TAKE 2 TABLETS BY MOUTH EVERY 8 HOURS NEEDED FOR MUSCLE SPASM FOR 30 DAYS - oxyCODONE IR (ROXICODONE) 5 mg immediate release tablet TAKE 2 TABLETS BY MOUTH EVERY 4 HOURS NEEDED FOR PAIN SCORE (4-10) FOR 7 DAYS - metoprolol succinate ER (TOPROL XL) 50 mg 24 hr tablet Take 0.5 tablets by mouth once daily. - magnesium chloride 64 mg magnesium tab Take 2 tablets by mouth once daily. - pantoprazole DR (PROTONIX) 40 mg tablet Take 1 tablet by mouth every 12 hours. - warfarin (COUMADIN) 2 mg tablet Take 2 tablets by mouth once daily. - clopidogrel (PLAVIX) 75 mg tablet Take 1 tablet by mouth once daily. - sertraline (ZOLOFT) 25 mg tablet Take 1 tablet by mouth once daily. - furosemide (LASIX) 40 mg tablet Take 1 tablet by mouth once daily. - acetaminophen (TYLENOL) 500 mg tablet 1,000 mg. - gabapentin (NEURONTIN) 100 mg capsule TWICE DAILY WITH MEALS - docusate sodium (STOOL SOFTENER ORAL) Take by mouth. - glimepiride (AMARYL) 2 mg tablet Take 1 tablet by mouth daily with breakfast. Check blood sugars daily, if remaining above 200 consistently in 2 to 4 weeks will increase the dose - Miscellaneous Medical Supply Take 1 Each by mouth two times a day. [employer] [place] 3+CoQ10 --30 mg of CoQ10 - oxybutynin ER (DITROPAN XL) 10 mg 24 hr tablet Take 1 tablet by mouth once daily. - simvastatin (ZOCOR) 80 mg tablet Take 1 tablet by mouth daily at bedtime. - fluticasone (FLONASE) 50 mcg/actuation nasal spray Use 2 Sprays in each nostril once daily. - ferrous sulfate 325 mg (65 mg iron) tablet Take 325 mg by mouth. 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] 04/17/2024 Encounter Status:Closed by ARELY TOWNSEND on 05/03/24 Normal [facility] PT panel Coag (PPP)on 2023 INR Coag (Bld) [Relative time] 2.5 (ext) 2.0 - 3.0 [facility] ([id number]) 1940 F Date Time Provider Department 04/30/24 [facility] During your visit today, we recorded the following information about you: Zoey Tom LPN 04/30/2024 2:18 PM Signed Le with [facility] calls to report she has to discharge pt from because of insurance change. Pt will be re-admitted to 05/02/24 under an different insurance. VERNON Holly Liza D, MD 05/04/2024 1:59 AM Signed Noted. Kierra Santiago MD Allergies As of Date: 04/30/2024 Noted Allergy Reaction ACCUPRIL (QUINAPRIL) 04/14/2015 16 - Unknown CALAN (VERAPAMIL) 04/14/2015 16 - Unknown CYMBALTA (DULOXETINE) 03/01/2024 5 - Intolerance Comments: dizziness LOTENSIN (BENAZEPRIL HCL) 04/14/2015 16 - Unknown SULFA (SULFONAMIDE ANTIBIOTICS) 04/14/2015 16 - Unknown Date Reviewed: 04/23/2024 Reviewed by: Terrence Jane MD - Fully Assessed Reason for Visit: Patient Update [1234] Prescriptions as of 06/25/2024 - sertraline (ZOLOFT) 25 mg tablet Take 1 tablet by mouth once daily. - tiZANidine (ZANAFLEX) 4 mg tablet Take 1 tablet by mouth every 8 hours as needed. - potassium chloride ER (KLOR-CON) 20 mEq tablet Take 1 tablet by mouth two times a day. - warfarin (COUMADIN) 2 mg tablet Take 2 tablets by mouth once daily. - metoprolol succinate ER (TOPROL XL) 50 mg 24 hr tablet Take 0.5 tablets by mouth once daily. - gabapentin (NEURONTIN) 100 mg capsule Take 1 capsule by mouth two times a day for 180 days. - clopidogrel (PLAVIX) 75 mg tablet Take 1 tablet by mouth once daily. - magnesium chloride 64 mg magnesium tab Take 2 tablets by mouth once daily. - pantoprazole DR (PROTONIX) 40 mg tablet Take 1 tablet by mouth every 12 hours. - furosemide (LASIX) 40 mg tablet Take 1 tablet by mouth once daily. - acetaminophen (TYLENOL) 500 mg tablet 1,000 mg. - glimepiride (AMARYL) 2 mg tablet Take 1 tablet by mouth daily with breakfast. Check blood sugars daily, if remaining above 200 consistently in 2 to 4 weeks will increase the dose - oxybutynin ER (DITROPAN XL) 10 mg 24 hr tablet Take 1 tablet by mouth once daily. - simvastatin (ZOCOR) 80 mg tablet Take 1 tablet by mouth daily at bedtime. - fluticasone (FLONASE) 50 mcg/actuation nasal spray Use 2 Sprays in each nostril once daily. - ferrous sulfate 325 mg (65 mg iron) tablet Take 325 mg by mouth. 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 Khadijah Eubanks, Kierra Jones MD 04/29/2024 6:48 PM Signed Verify form faxed back Bekah Vivas LPN 04/30/2024 4:07 PM Signed Forms at nurse's pod for signature Kierra Santiago MD 04/30/2024 11:56 PM Signed Signed Bekah Vivas LPN 05/01/2024 8:54 AM Signed Form faxed back to [facility] Home Health Allergies As of Date: 04/27/2024 Noted Allergy Reaction ACCUPRIL (QUINAPRIL) 04/14/2015 16 - Unknown CALAN (VERAPAMIL) 04/14/2015 16 - Unknown CYMBALTA (DULOXETINE) 03/01/2024 5 - Intolerance Comments: dizziness LOTENSIN (BENAZEPRIL HCL) 04/14/2015 16 - Unknown SULFA (SULFONAMIDE ANTIBIOTICS) 04/14/2015 16 - Unknown Date Reviewed: 04/23/2024 Reviewed by: Terrence Jane MD - Fully Assessed Reason for Visit: Forms [903] Cmt: certificate plan of care 04/09/24 Prescriptions as of 05/01/2024 - potassium chloride ER (KLOR-CON) 20 mEq tablet TWICE DAILY WITH MEALS - tiZANidine (ZANAFLEX) 2 mg tablet TAKE 2 TABLETS BY MOUTH EVERY 8 HOURS NEEDED FOR MUSCLE SPASM FOR 30 DAYS - oxyCODONE IR (ROXICODONE) 5 mg immediate release tablet TAKE 2 TABLETS BY MOUTH EVERY 4 HOURS NEEDED FOR PAIN SCORE (4-10) FOR 7 DAYS - metoprolol succinate ER (TOPROL XL) 50 mg 24 hr tablet Take 0.5 tablets by mouth once daily. - magnesium chloride 64 mg magnesium tab Take 2 tablets by mouth once daily. - pantoprazole DR (PROTONIX) 40 mg tablet Take 1 tablet by mouth every 12 hours. - warfarin (COUMADIN) 2 mg tablet Take 2 tablets by mouth once daily. - clopidogrel (PLAVIX) 75 mg tablet Take 1 tablet by mouth once daily. - sertraline (ZOLOFT) 25 mg tablet Take 1 tablet by mouth once daily. - furosemide (LASIX) 40 mg tablet Take 1 tablet by mouth once daily. - acetaminophen (TYLENOL) 500 mg tablet 1,000 mg. - gabapentin (NEURONTIN) 100 mg capsule TWICE DAILY WITH MEALS - docusate sodium (STOOL SOFTENER ORAL) Take by mouth. - glimepiride (AMARYL) 2 mg tablet Take 1 tablet by mouth daily with breakfast. Check blood sugars daily, if remaining above 200 consistently in 2 to 4 weeks will increase the dose - Miscellaneous Medical Supply Take 1 Each by mouth two times a day. [place] [place] 3+CoQ10 --30 mg of CoQ10 - oxybutynin ER (DITROPAN XL) 10 mg 24 hr tablet Take 1 tablet by mouth once daily. - simvastatin (ZOCOR) 80 mg tablet Take 1 tablet by mouth daily at bedtime. - fluticasone (FLONASE) 50 mcg/actuation nasal spray Use 2 Sprays in each nostril once daily. - ferrous sulfate 325 mg (65 mg iron) tablet Take 325 mg by mouth. 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, [address] BUN/CRE Normal 10-20 [facility] Comment on above: Result Comment: Canc elled via OM: Order cancelled - Patient discharged Performed By: #### L 100.0100, L500.2500 ####[facility] [address] [place], [address] CA,Total Normal 8.5-10.1 [facility] Comment on above: Result Comment: Canc elled via OM: Order cancelled - Patient discharged Performed By: #### L 100.0100, L500.2500 ####[facility] [address] [place], [address] CL Normal 98-107 [facility] Comment on above: Result Comment: Canc elled via OM: Order cancelled - Patient discharged Performed By: #### L 100.0100, L500.2500 ####[facility] [address] [place], [address] CO2 Normal 21.0-32.0 [facility] Comment on above: Result Comment: Canc elled via OM: Order cancelled - Patient discharged Performed By: #### L 100.0100, L500.2500 ####[facility] [address] [place], [address] CREAT,SERUM Normal 0.55-1.02 [facility] Comment on above: Result Comment: Canc elled via OM: Order cancelled - Patient discharged Performed By: #### L 100.0100, L500.2500 ####[facility] [address] [place], [address] EST GFR Normal >60 [facility] Comment on above: Result Comment: Canc elled via OM: Order cancelled - Patient discharged Performed By: #### L 100.0100, L500.2500 ####[facility] [address] [place], [address] EST GFR - AA Normal >60 [facility] Comment on above: Result Comment: Canc elled via OM: Order cancelled - Patient discharged Performed By: #### L 100.0100, L500.2500 ####[facility] [address] [place], [address] GAP Normal 5-15 [facility] Comment on above: Result Comment: Canc elled via OM: Order cancelled - Patient discharged Performed By: #### L 100.0100, L500.2500 ####[facility] [address] [place], [address] GLU Normal 74-106 [facility] Comment on above: Result Comment: Canc elled via OM: Order cancelled - Patient discharged Performed By: #### L 100.0100, L500.2500 ####[facility] [address] [place], [address] Potassium Normal 3.5-5.1 [facility] Comment on above: Result Comment: Canc elled via OM: Order cancelled - Patient discharged Performed By: #### L 100.0100, L500.2500 ####[facility] [address] [place], [address] Basic Metabolic Profile (BMP) Normal 136-145 [facility] Comment on above: Result Comment: Canc elled via OM: Order cancelled - Patient discharged Performed By: #### L 100.0100, L500.2500 ####[facility] [address] [place], [address] CBC W/Diff, Automatedon 12-2 Absolute Neut Normal 2.0-7.7 [facility] Comment on above: Result Comment: Canc elled via OM: Order cancelled - Patient discharged Performed By: #### L 100.0100, L500.2500 ####[facility] [address] [place], [address] HCT Normal 37-47 [facility] Comment on above: Result Comment: Canc elled via OM: Order cancelled - Patient discharged Performed By: #### L 100.0100, L500.2500 ####[facility] [address] [place], [address] HGB Normal 12.0-15.0 [facility] Comment on above: Result Comment: Canc elled via OM: Order cancelled - Patient discharged Performed By: #### L 100.0100, L500.2500 ####[facility] [address] [place], [address] MCH Normal 27.0-32.0 [facility] Comment on above: Result Comment: Canc elled via OM: Order cancelled - Patient discharged Performed By: #### L 100.0100, L500.2500 ####[facility] [address] [place], [address] MCHC Normal 32-36 [facility] Comment on above: Result Comment: Canc elled via OM: Order cancelled - Patient discharged Performed By: #### L 100.0100, L500.2500 ####[facility] [address] [place], [address] MCV Normal 81-99 [facility] Comment on above: Result Comment: Canc elled via OM: Order cancelled - Patient discharged Performed By: #### L 100.0100, L500.2500 ####[facility] [address] [place], [address] NEUT% Normal 47-70 [facility] Comment on above: Result Comment: Canc elled via OM: Order cancelled - Patient discharged Performed By: #### L 100.0100, L500.2500 ####[facility] [address] [place], [address] PLT Normal 150-450 [facility] Comment on above: Result Comment: Canc elled via OM: Order cancelled - Patient discharged Performed By: #### L 100.0100, L500.2500 ####[facility] [address] [place], [address] RBC Normal 4.2-5.4 [facility] Comment on above: Result Comment: Canc elled via OM: Order cancelled - Patient discharged Performed By: #### L 100.0100, L500.2500 ####[facility] [address] [place], [address] RDW CV Normal 11.6-14.6 [facility] Comment on above: Result Comment: Canc elled via OM: Order cancelled - Patient discharged Performed By: #### L 100.0100, L500.2500 ####[facility] [address] [place], [address] RDW SD Normal 35.1-43.9 [facility] Comment on above: Result Comment: Canc elled via OM: Order cancelled - Patient discharged Performed By: #### L 100.0100, L500.2500 ####[facility] [address] [place], [address] WBC Normal 4.4-11.0 [facility] Comment on above: Result Comment: Canc elled via OM: Order cancelled - Patient discharged Performed By: #### L 100.0100, L500.2500 ####[facility] [address] [place], [address] CNOVnevaeh 04-23-2024 CNOV Office Visit (CAWSTR ) JAROD PRITCHARD ([id number]) 1940 F Date Time Provider Department 04/23/24 3:00 PM TERRENCE JANE During your visit today, we recorded the following information about you: Pulse Respiration Blood pressure Weight 69/minute 12/minute 178/56 64.9 kg Height 1.588 m Terrence Jane MD 04/23/2024 3:01 PM Signed Terrence Jane MD Interventional Cardiology [address] [place] [phone] Chief Complaint Patient presents with: New: was at admitted at [facility]- dx CHF and a-fib HISTORY OF PRESENT [...] by mouth two times a day. [employer] [place] 3+CoQ10 --30 mg of CoQ10 oxybutynin ER [...] wheezing and stridor. Cardiovascular: Negative for chest gualberto (more content not included)... Normal [facility] 04-23-2024 [facility] Telephone (INTMWS) JAROD PRITCHARD ([id number]) 1940 F Date Time Provider Department 04/23/24 KIERRA SANTIAGO INTMWS During your visit today, we recorded the following information about you: Emily Bustos LPN 04/23/2024 11:30 AM Signed Elissa with [facility] called and they saw pt today but did not do an INR. Pt has apt with Cardiology at the [facility] and Elissa will call and have pt go early and get INR done at the [facility] and it will then come to Dr. Santiago to review and advise. Watch for results. VERNON Castellanos Sue E, LPN 04/23/2024 5:47 PM Signed Forwarded to Provider to review. VERNON Hernandez Liza D, MD 04/23/2024 8:06 PM Signed INR 4.1 Verify patient taking 2 mg daily (and did not accidentally take the wrong dose 5mg or take extra as did last week). Also verify eating well--getting some [...] of the week. INR in 1 week. Noemi Cullen RN 04/24/2024 8:52 AM Signed Contacted patient and reviewed provider's instructions below. Patient agreeable to take 2 mg daily, except 1 mg Tuesdays and Fridays. Patient states she will cut her 2 mg pills in half to make 1 mg. Patient repeated instructions back to this nurse successfully. Patient aware to get INR in one week. Pt has standing INR order. Noemi Cullen RN Allergies As of Date: 04/23/2024 Noted Allergy Reaction ACCUPRIL (QUINAPRIL) 04/14/2015 16 - Unknown CALAN (VERAPAMIL) 04/14/2015 16 - Unknown CYMBALTA (DULOXETINE) 03/01/2024 5 - Intolerance Comments: dizziness LOTENSIN (BENAZEPRIL HCL) 04/14/2015 16 - Unknown SULFA (SULFONAMIDE ANTIBIOTICS) 04/14/2015 16 - Unknown Date Reviewed: 04/23/2024 Reviewed by: Terrence Jane MD - Fully Assessed Reason for Visit: [facility] - INR message [Other] Prescriptions as of 04/24/2024 - potassium chloride ER (KLOR-CON) 20 mEq tablet TWICE DAILY WITH MEALS - tiZANidine (ZANAFLEX) 2 mg tablet TAKE 2 TABLETS BY MOUTH EVERY 8 HOURS NEEDED FOR MUSCLE SPASM FOR 30 DAYS - oxyCODONE IR (ROXICODONE) 5 mg immediate release tablet TAKE 2 TABLETS BY MOUTH EVERY 4 HOURS NEEDED FOR PAIN SCORE (4-10) FOR 7 DAYS - metoprolol succinate ER (TOPROL XL) 50 mg 24 hr tablet Take 0.5 tablets by mouth once daily. - magnesium chloride 64 mg magnesium tab Take 2 tablets by mouth once daily. - pantoprazole DR (PROTONIX) 40 mg tablet Take 1 tablet by mouth every 12 hours. - warfarin (COUMADIN) 2 mg tablet Take 2 tablets by mouth once daily. - clopidogrel (PLAVIX) 75 mg tablet Take 1 tablet by mouth once daily. - sertraline (ZOLOFT) 25 mg tablet Take 1 tablet by mouth once daily. - furosemide (LASIX) 40 mg tablet Take 1 tablet by mouth once daily. - acetaminophen (TYLENOL) 500 mg tablet 1,000 mg. - gabapentin (NEURONTIN) 100 mg capsule TWICE DAILY WITH MEALS - docusate sodium (STOOL SOFTENER ORAL) Take by mouth. - glimepiride (AMARYL) 2 mg tablet Take 1 tablet by mouth daily with breakfast. Check blood sugars daily, if remaining above 200 consistently in 2 to 4 weeks will increase the dose - Miscellaneous Medical Supply Take 1 Each by mouth two times a day. [place] [place] 3+CoQ10 --30 mg of CoQ10 - oxybutynin ER (DITROPAN XL) 10 mg 24 hr tablet Take 1 tablet by mouth once daily. - simvastatin (ZOCOR) 80 mg tablet Take 1 tablet by mouth daily at bedtime. - fluticasone (FLONASE) 50 mcg/actuation nasal spray Use 2 Sprays in each nostril once daily. - ferrous sulfate 325 mg (65 mg iron) tablet Take 325 mg by mouth. 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] 04/17/2024 Encounter Status:Closed by NOEMI CULLEN on 04/24/24 Normal [facility] PT panel Coag (PPP)on 2023 INR Coag (PPP) [Relative time] 4.1 {INR} High 0.9-1.3 [facility] Comment on above: Order Comment: Speci men Type: BLOOD SPECIMEN Ordering Facility: [facility] Address: [address] [id number] Result Comment: Geetha min K Antagonist (VKA) Therapeutic Range: INR 2 to 3 (Target INR of 2.5) Note: For patients treated with VKA drugs, such as warfarin, the [employer] 2012 Guideline recommends a therapeutic INR range of 2 to 3 (target INR of 2.5). This recommendation includes high-risk patients with antiphospholipid syndrome with previous arterial or venous thromboembolism, current-generation mechanical or bioprosthetic aortic heart valve replacement. Note: Patients with mechanical aortic valve replacement and additional risk factors for thromboembolic events (atrial fibrillation, previous thromboembolism, LV dysfunction, hypercoagulable conditions) or an older generation mechanical AVR (i.e., ball in-Cage) or any mechanical MVR should have a INR therapeutic range of 2.5 to 3.5 (target INR of 3). Oscar WILLIAM, et al. Chest 2012, 141:7S-47S Jovanna ZAIDI et al. [facility] 2017, 70: 252-289 Performed By: #### 3 4528-0 #### [id number] [address] [place] [address] [place] PT Coag (PPP) [Time] 38.8 s High <13.1 [facility] Comment on above: Order Comment: Speci men Type: BLOOD SPECIMEN Ordering Facility: [facility] Address: [address] [place] [address] Performed By: #### 3 4528-0 #### [facility] CLIA [id number] [address] [place] [address] [place] Prothrombin Time w/INRon INR Normal [facility] Comment on above: Result Comment: Canc elled via OM: Order cancelled - Patient discharged Performed By: #### L 300.390 ####[facility] [address] [place] [id number] PROTIME Normal 11.7-14.9 [facility] Comment on above: Result Comment: Canc elled via OM: Order cancelled - Patient discharged Performed By: #### L 300.3900 ####[facility] [address] [place], [address] [facility] 04-18-2024 [facility] Telephone (INTMWS) MACHOJAROD Crow ([id number]) 1940 F Date Time Provider Department 04/18/24 KIERRA SANTIAGO INTMWS During your visit today, we recorded the following information about you: Cecilio Guadarrama RN 04/18/2024 2:43 PM Signed Last INR: INR (POCT) 3.3 EXT 04/18/2024 Current dose of coumadin is: Coumadin 2 mg. [facility] reports patient started 2 mg dose this morning. PerAnastaisia's OV notes patient was to hold until INR drawn today. Last date of dose change: 04/16/2024. Previous INR (date and result): 5.1 EXT on 04/16/2024 Additional Clinical Information or narrative: yes: No dietary changes, antibiotics, unusual bleeding or bruising. [facility] requests that Qasim LEMON CM be contacted with further orders at [phone]. Kierra Santiago MD 04/19/2024 6:01 PM Signed Noted patient already started taking 2 mg dose yesterday. Okay 2 mg daily dose for now Recheck next Tuesday. Warner Atkins LPN 04/20/2024 9:16 AM Signed [facility] and patient made aware. This encounter has been faxed to [facility]. 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 - magnesium chloride 64 mg magnesium tab Take 2 tablets by mouth once daily. - pantoprazole DR (PROTONIX) 40 mg tablet Take 1 tablet by mouth every 12 hours. - warfarin (COUMADIN) 2 mg tablet Take 2 tablets by mouth once daily. - clopidogrel (PLAVIX) 75 mg tablet Take 1 tablet by mouth once daily. - sertraline (ZOLOFT) 25 mg tablet Take 1 tablet by mouth once daily. - furosemide (LASIX) 40 mg tablet Take 1 tablet by mouth once daily. - acetaminophen (TYLENOL) 500 mg tablet 1,000 mg. - gabapentin (NEURONTIN) 100 mg capsule TWICE DAILY WITH MEALS - docusate sodium (STOOL SOFTENER ORAL) Take by mouth. - glimepiride (AMARYL) 2 mg tablet Take 1 tablet by mouth daily with breakfast. Check blood sugars daily, if remaining above 200 consistently in 2 to 4 weeks will increase the dose - Miscellaneous Medical Supply Take 1 Each by mouth two times a day. [employer] [place] 3+CoQ10 --30 mg of CoQ10 - oxybutynin ER (DITROPAN XL) 10 mg 24 hr tablet Take 1 tablet by mouth once daily. - simvastatin (ZOCOR) 80 mg tablet Take 1 tablet by mouth daily at bedtime. - fluticasone (FLONASE) 50 mcg/actuation nasal spray Use 2 Sprays in each nostril once daily. - ferrous sulfate 325 mg (65 mg iron) tablet Take 325 mg by mouth. 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 Cecilio Guadarrama RN [facility] Basic Metabolic Profile (BMP )on 04-17-2024 BUN Normal 11-16 [facility] Comment on above: Result Comment: Canc elled via OM: Order cancelled - Patient discharged Performed By: #### L 100.0100, L500.2500 ####[facility] [address] [place], [address] BUN/CRE Normal - [facility] Comment on above: Result Comment: Canc elled via OM: Order cancelled - Patient discharged Performed By: #### L 100.0100, L500.2500 ####[facility] [address] [place], [address] CA,Total Normal 8.5-10.1 [facility] Comment on above: Result Comment: Canc elled via OM: Order cancelled - Patient discharged Performed By: #### L 100.0100, L500.2500 ####[facility] [address] [place], [address] CL Normal 98-107 [facility] Comment on above: Result Comment: Canc elled via OM: Order cancelled - Patient discharged Performed By: #### L 100.0100, L500.2500 ####[facility] [address] [place], [address] CO2 Normal 21.0-32.0 [facility] Comment on above: Result Comment: Canc elled via OM: Order cancelled - Patient discharged Performed By: #### L 100.0100, L500.2500 ####[facility] [address] [place], [address] CREAT,SERUM Normal 0.55-1.02 [facility] Comment on above: Result Comment: Canc elled via OM: Order cancelled - Patient discharged Performed By: #### L 100.0100, L500.2500 ####[facility] [address] [place], [address] EST GFR Normal >60 [facility] Comment on above: Result Comment: Canc elled via OM: Order cancelled - Patient discharged Performed By: #### L 100.0100, L500.2500 ####[facility] [address] [place], [address] EST GFR - AA Normal >60 [facility] Comment on above: Result Comment: Canc elled via OM: Order cancelled - Patient discharged Performed By: #### L 100.0100, L500.2500 ####[facility] [address] [place], [address] GAP Normal 5-15 [facility] Comment on above: Result Comment: Canc elled via OM: Order cancelled - Patient discharged Performed By: #### L 100.0100, L500.2500 ####[facility] [address] [place], [address] GLU Normal 74-106 [facility] Comment on above: Result Comment: Canc elled via OM: Order cancelled - Patient discharged Performed By: #### L 100.0100, L500.2500 ####[facility] [address] [place], [address] Potassium Normal 3.5-5.1 [facility] Comment on above: Result Comment: Canc elled via OM: Order cancelled - Patient discharged Performed By: #### L 100.0100, L500.2500 ####[facility] [address] [place], [address] Basic Metabolic Profile (BMP) Normal 136-145 [facility] Comment on above: Result Comment: Canc elled via OM: Order cancelled - Patient discharged Performed By: #### L 100.0100, L500.2500 ####[facility] [address] [place], [address] CBC W/Diff, Automatedon 12- Absolute Neut Normal 2.0-7.7 [facility] Comment on above: Result Comment: Canc elled via OM: Order cancelled - Patient discharged Performed By: #### L 100.0100, L500.2500 ####[facility] [address] [place], [address] HCT Normal 37-47 [facility] Comment on above: Result Comment: Canc elled via OM: Order cancelled - Patient discharged Performed By: #### L 100.0100, L500.2500 ####[facility] [address] [place], [address] HGB Normal 12.0-15.0 [facility] Comment on above: Result Comment: Canc elled via OM: Order cancelled - Patient discharged Performed By: #### L 100.0100, L500.2500 ####[facility] [address] [place], [address] MCH Normal 27.0-32.0 [facility] Comment on above: Result Comment: Canc elled via OM: Order cancelled - Patient discharged Performed By: #### L 100.0100, L500.2500 ####[facility] [address] [place], [address] MCHC Normal 32-36 [facility] Comment on above: Result Comment: Canc elled via OM: Order cancelled - Patient discharged Performed By: #### L 100.0100, L500.2500 ####[facility] [address] [place], [address] MCV Normal 81-99 [facility] Comment on above: Result Comment: Canc elled via OM: Order cancelled - Patient discharged Performed By: #### L 100.0100, L500.2500 ####[facility] [address] [place], [address] NEUT% Normal 47-70 [facility] Comment on above: Result Comment: Canc elled via OM: Order cancelled - Patient discharged Performed By: #### L 100.0100, L500.2500 ####[facility] [address] [place], [address] PLT Normal 150-450 [facility] Comment on above: Result Comment: Canc elled via OM: Order cancelled - Patient discharged Performed By: #### L 100.0100, L500.2500 ####[facility] [address] [place], [address] RBC Normal 4.2-5.4 [facility] Comment on above: Result Comment: Canc elled via OM: Order cancelled - Patient discharged Performed By: #### L 100.0100, L500.2500 ####[facility] [address] [place], [address] RDW CV Normal 11.6-14.6 [facility] Comment on above: Result Comment: Canc elled via OM: Order cancelled - Patient discharged Performed By: #### L 100.0100, L500.2500 ####[facility] [address] [place], [address] RDW SD Normal 35.1-43.9 [facility] Comment on above: Result Comment: Canc elled via OM: Order cancelled - Patient discharged Performed By: #### L 100.0100, L500.2500 ####[facility] [address] [place], [address] WBC Normal 4.4-11.0 [facility] Comment on above: Result Comment: Canc elled via OM: Order cancelled - Patient discharged Performed By: #### L 100.0100, L500.2500 ####[facility] [address] [place], [address] CNOVon 04-17-2024 CNOV Office Visit (INTMWS ) JAROD PRITCHARD ([id number]) 1940 F Date Time Provider Department 04/17/24 11:20 AM ANASTASIIA COLÓN INTMWS During your visit today, we recorded the following information about you: Pulse 61/minute Anastasiia Colón APRN.CNS 04/17/2024 1:48 PM Signed SUBJECTIVE: RSV Vaccine(1 - 1-dose 75+ series) Never done Diabetic Foot Exam due on 08/10/2023 MAYNOR Hwang Kisha Wadejosse is a 83 year old female. PMH [...] for hospital discharge follow-up visit. She has [facility]. She was admitted to [facility] March 19 through April 05. She [...] rehab for debility. Discharged to home with [facility] home care. Today reports eating and drinking normally. No bowel or bladder complaints. She has [place] home health care coming out to her home. She has an appointment coming up with her glass washer Dr. Blanca. She reports no upcoming appointment [...] in each nostril once daily. senna-docusate (SENNA-S) 8.6- (more content not included)... [facility] (INTMWS) JAROD PRITCHARD ([id number]) 1940 F Date Time Provider Department 04/16/24 KIERRA SANTIAGO INTMWS During your visit today, we recorded the following information about you: Cecilio Guadarrama RN 04/16/2024 10:03 AM Signed Last INR: INR (POCT) 5.1 EXT 04/16/2024 Current dose of coumadin is: Coumadin 4 mg daily. Last date of dose change: 02/27/2024. Previous INR (date and result): 04/09/2024 1.7 Additional Clinical Information or narrative: yes: No missed doses or dietary changes. Qasim reports that patient is holding Coumadin today and he will be out to see patient again on Tuesday if another INR is needed at that time. Patient also has follow up with Anastasiia tomorrow 04/17. Call back number is [phone]. XOCHILT Sen Liza D, MD 04/16/2024 10:41 AM Signed Hold today and tomorrow then get INR Tuesday as noted. Can discuss with Anastasiia tomorrow about prior coumadin dosing Cecilio Guadarrama RN 04/16/2024 10:56 AM Signed Call placed to patient and Qasim with [facility]. Spoke to both with verbalized understanding. 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 - clopidogrel (PLAVIX) 75 mg tablet Take 1 tablet by mouth once daily. - sertraline (ZOLOFT) 25 mg tablet Take 1 tablet by mouth once daily. - furosemide (LASIX) 40 mg tablet Take 1 tablet by mouth once daily. - acetaminophen (TYLENOL) 500 mg tablet EVERY 8 HOURS - gabapentin (NEURONTIN) 100 mg capsule TWICE DAILY WITH MEALS - enoxaparin (LOVENOX) 80 mg/0.8 mL Q12H - docusate sodium (STOOL SOFTENER ORAL) Take by mouth. - traMADol (ULTRAM) 50 mg tablet EVERY 8 HOURS NEEDED as needed for PAIN 1-3 - Ferrous Fumarate 325 mg (106 mg iron) tab Take by mouth. - argin/glut/CaHMB/josh ag/mv-min (BUSTER, WITH COLLAGEN, ORAL) Take by mouth. - metoprolol succinate ER (TOPROL XL) 50 mg 24 hr tablet Take 1 tablet by mouth once daily. - glimepiride (AMARYL) 2 mg tablet Take 1 tablet by mouth daily with breakfast. Check blood sugars daily, if remaining above 200 consistently in 2 to 4 weeks will increase the dose - losartan (COZAAR) 50 mg tablet Take 1 tablet by mouth once daily. - spironolactone (ALDACTONE) 25 mg tablet Take 0.5 tablets by mouth once daily. - Miscellaneous Medical Supply Take 1 Each by mouth two times a day. Biote [place] 3+CoQ10 --30 mg of CoQ10 - cholecalciferol (VITAMIN D-3) 5,000 unit tab Take 5,000 Units by mouth. Take 1-2 tablet daily - oxybutynin ER (DITROPAN XL) 10 mg 24 hr tablet Take 1 tablet by mouth once daily. - simvastatin (ZOCOR) 80 mg tablet Take 1 tablet by mouth daily at bedtime. - fluticasone (FLONASE) 50 mcg/actuation nasal spray Use 2 Sprays in each nostril once daily. - omeprazole (PRILOSEC) 20 mg capsule Take 1 capsule by mouth daily before breakfast. 1/2 hr before meal. - ferrous sulfate 325 mg (65 mg iron) tablet Take 325 mg by mouth. - calcium carbonate (CALCIUM 600 ORAL) Take 1,200 mg by mouth. - cinnamon bark (CINNAMON ORAL) Take 4,200 mg by mouth. - sodium chloride (AYR SALINE) 0.65 % nasal spray Use 2 Sprays in the nose as needed. - propylene glycoL (SYSTANE BALANCE) 0.6 % drop 1 Drop. 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] 07/01/2022 Bilateral carotid artery stenosis [I65.23] 03/15/2023 Elevated HDL [E78.89] 03/15/2023 Factor 5 Leiden mutation, heterozygous (HCC) [D*03/15/2023 Peripheral vascular disease, unspecified (HCC) *06/07/2023 Encounter Status:Closed by CECILIO GUADARRAMA on 04/16/24 [facility] Telephone (INTMWS) JAROD PRITCHARD ([id number]) 1940 F Date Time Provider Department 04/16/24 KIERRA SANTIAGO INTMWS During your visit today, we recorded the following information about you: Noemi Cullen RN 04/16/2024 2:43 PM Signed Jaylan with [facility] calling with patient's Physical Therapy plan of care. PT will see patient 1x/week for 3 weeks for functional mobility training. No call back needed if provider agreeable with POC. Thank you. Kierra Santiago MD 04/16/2024 11:33 PM Signed Agreeable with POC Allergies As of Date: 04/16/2024 Noted Allergy Reaction ACCUPRIL (QUINAPRIL) 04/14/2015 16 - Unknown CALAN (VERAPAMIL) 04/14/2015 16 - Unknown CYMBALTA (DULOXETINE) 03/01/2024 5 - Intolerance Comments: dizziness LOTENSIN (BENAZEPRIL HCL) 04/14/2015 16 - Unknown SULFA (SULFONAMIDE ANTIBIOTICS) 04/14/2015 16 - Unknown Date Reviewed: 02/23/2024 Reviewed by: Anastasiia Colón APRN.[employer] - Fully Assessed Reason for Visit: Physical Therapy Plan of Care [Other] Prescriptions as of 04/16/2024 - warfarin (COUMADIN) 2 mg tablet Take 2 tablets by mouth once daily. - clopidogrel (PLAVIX) 75 mg tablet Take 1 tablet by mouth once daily. - sertraline (ZOLOFT) 25 mg tablet Take 1 tablet by mouth once daily. - furosemide (LASIX) 40 mg tablet Take 1 tablet by mouth once daily. - acetaminophen (TYLENOL) 500 mg tablet EVERY 8 HOURS - gabapentin (NEURONTIN) 100 mg capsule TWICE DAILY WITH MEALS - enoxaparin (LOVENOX) 80 mg/0.8 mL Q12H - docusate sodium (STOOL SOFTENER ORAL) Take by mouth. - traMADol (ULTRAM) 50 mg tablet EVERY 8 HOURS NEEDED as needed for PAIN 1-3 - Ferrous Fumarate 325 mg (106 mg iron) tab Take by mouth. - argin/glut/CaHMB/josh ag/mv-min (BUSTER, WITH COLLAGEN, ORAL) Take by mouth. - metoprolol succinate ER (TOPROL XL) 50 mg 24 hr tablet Take 1 tablet by mouth once daily. - glimepiride (AMARYL) 2 mg tablet Take 1 tablet by mouth daily with breakfast. Check blood sugars daily, if remaining above 200 consistently in 2 to 4 weeks will increase the dose - losartan (COZAAR) 50 mg tablet Take 1 tablet by mouth once daily. - spironolactone (ALDACTONE) 25 mg tablet Take 0.5 tablets by mouth once daily. - Miscellaneous Medical Supply Take 1 Each by mouth two times a day. [employer] [place] 3+CoQ10 --30 mg of CoQ10 - cholecalciferol (VITAMIN D-3) 5,000 unit tab Take 5,000 Units by mouth. Take 1-2 tablet daily - oxybutynin ER (DITROPAN XL) 10 mg 24 hr tablet Take 1 tablet by mouth once daily. - simvastatin (ZOCOR) 80 mg tablet Take 1 tablet by mouth daily at bedtime. - fluticasone (FLONASE) 50 mcg/actuation nasal spray Use 2 Sprays in each nostril once daily. - omeprazole (PRILOSEC) 20 mg capsule Take 1 capsule by mouth daily before breakfast. 1/2 hr before meal. - ferrous sulfate 325 mg (65 mg iron) tablet Take 325 mg by mouth. - calcium carbonate (CALCIUM 600 ORAL) Take 1,200 mg by mouth. - cinnamon bark (CINNAMON ORAL) Take 4,200 mg by mouth. - sodium chloride (AYR SALINE) 0.65 % nasal spray Use 2 Sprays in the nose as needed. - propylene glycoL (SYSTANE BALANCE) 0.6 % drop 1 Drop. 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 Cecilio Guadarrama RN [facility] Prothrombin Time w/INRon INR Normal [facility] Comment on above: Result Comment: Canc elled via OM: Order cancelled - Patient discharged Performed By: #### L 300.3900 ####[facility] [address] [place], [place], [address] PROTIME Normal 11.7-14.9 [facility] Comment on above: Result Comment: Canc elled via OM: Order cancelled - Patient discharged Performed By: #### L 300.3900 ####[facility] [address] [place], [place], [address] CNPNon 04-13-2024 [facility] Telephone (INTMWS) JAROD PRITCHARD ([id number]) 1940 F Date Time Provider Department 04/13/24 KIERRA SANTIAGO INTWS During your visit today, we recorded the following information about you: Cecilio Guadarrama RN 04/13/2024 9:10 AM Signed Elli with [facility] calls to request a delay in start of care for PT. Elli would like to move the visit to next week d/t patient having an appointment today. Elli requests a call back at [phone]. XOCHILT Sen Terri, [employer] 04/13/2024 12:39 PM Signed [facility] Cecilio Guadarrama RN 04/13/2024 4:29 PM Signed Call placed to Elli with [facility] and notified of below message with understanding. Cecilio Guadarrama RN Allergies As of Date: 04/13/2024 Noted Allergy Reaction ACCUPRIL (QUINAPRIL) 04/14/2015 16 - Unknown CALAN (VERAPAMIL) 04/14/2015 16 - Unknown CYMBALTA (DULOXETINE) 03/01/2024 5 - Intolerance Comments: dizziness LOTENSIN (BENAZEPRIL HCL) 04/14/2015 16 - Unknown SULFA (SULFONAMIDE ANTIBIOTICS) 04/14/2015 16 - Unknown Date Reviewed: 02/23/2024 Reviewed by: Anastasiia Colón APRN.[employer] - Fully Assessed Reason for Visit: Orders [681] Prescriptions as of 04/13/2024 - warfarin (COUMADIN) 2 mg tablet Take 2 tablets by mouth once daily. - clopidogrel (PLAVIX) 75 mg tablet Take 1 tablet by mouth once daily. - sertraline (ZOLOFT) 25 mg tablet Take 1 tablet by mouth once daily. - furosemide (LASIX) 40 mg tablet Take 1 tablet by mouth once daily. - acetaminophen (TYLENOL) 500 mg tablet EVERY 8 HOURS - gabapentin (NEURONTIN) 100 mg capsule TWICE DAILY WITH MEALS - enoxaparin (LOVENOX) 80 mg/0.8 mL Q12H - docusate sodium (STOOL SOFTENER ORAL) Take by mouth. - traMADol (ULTRAM) 50 mg tablet EVERY 8 HOURS NEEDED as needed for PAIN 1-3 - Ferrous Fumarate 325 mg (106 mg iron) tab Take by mouth. - argin/glut/CaHMB/josh ag/mv-min (BUSTER, WITH COLLAGEN, ORAL) Take by mouth. - metoprolol succinate ER (TOPROL XL) 50 mg 24 hr tablet Take 1 tablet by mouth once daily. - glimepiride (AMARYL) 2 mg tablet Take 1 tablet by mouth daily with breakfast. Check blood sugars daily, if remaining above 200 consistently in 2 to 4 weeks will increase the dose - losartan (COZAAR) 50 mg tablet Take 1 tablet by mouth once daily. - spironolactone (ALDACTONE) 25 mg tablet Take 0.5 tablets by mouth once daily. - Miscellaneous Medical Supply Take 1 Each by mouth two times a day. Biote [place] 3+CoQ10 --30 mg of CoQ10 - cholecalciferol (VITAMIN D-3) 5,000 unit tab Take 5,000 Units by mouth. Take 1-2 tablet daily - oxybutynin ER (DITROPAN XL) 10 mg 24 hr tablet Take 1 tablet by mouth once daily. - simvastatin (ZOCOR) 80 mg tablet Take 1 tablet by mouth daily at bedtime. - fluticasone (FLONASE) 50 mcg/actuation nasal spray Use 2 Sprays in each nostril once daily. - omeprazole (PRILOSEC) 20 mg capsule Take 1 capsule by mouth daily before breakfast. 1/2 hr before meal. - ferrous sulfate 325 mg (65 mg iron) tablet Take 325 mg by mouth. - calcium carbonate (CALCIUM 600 ORAL) Take 1,200 mg by mouth. - cinnamon bark (CINNAMON ORAL) Take 4,200 mg by mouth. - sodium chloride (AYR SALINE) 0.65 % nasal spray Use 2 Sprays in the nose as needed. - propylene glycoL (SYSTANE BALANCE) 0.6 % drop 1 Drop. 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 w/INRon INR Normal [facility] Comment on above: Result Comment: Canc elled via OM: Order cancelled - Patient discharged Performed By: #### L 300.4642 ####[facility] [address] [place], [place], [id number] PROTIME Normal 11.7-14.9 [facility] Comment on above: Result Comment: Canc elled via OM: Order cancelled - Patient discharged Performed By: #### L 300.3900 ####[facility] [address] [place], [address] [facility] ([id number]) 1940 F Date Time Provider Department 04/11/24 KIERRA SANTIAGO INTMWS During your visit today, we recorded the following information about you: Stacia Bruce LPN 04/11/2024 9:36 AM Signed Moisés nurse with [facility] calling, asking if PCP saw that [...] and the patient with instructions. Please advise. Romina Sawant LPN 04/11/2024 5:59 PM Signed Message copied and given to Provider to address. VERNON Hernandez Liza D, MD 04/11/2024 6:46 PM Signed Last dose on med list is 2 mg daily coumadin. Back in January, INR was okay on 4 mg daily after increase from taking 1mg Wed and 2 mg other days. Verify if dosing since last January not accurate (ie, was taking a different dose prior to this INR 1.7 instead of 2mg daily) Have her take 4 mg daily and recheck INR next Vishal Bekah Vivas LPN 04/12/2024 9:38 AM Signed Spoke with patient. Patient states that her memory is not good and doesn't remember dosing in Jan but thinks that prior to hospital admin she was taking 5 mg daily except for on Tue which was 2 mg. Patient given coumadin instructions and notified that Qasim will recheck INR on Tuesday. Bekah Vivas LPN 04/12/2024 9:38 AM Signed Attempted to contact [facility] nurse with [facility] but no answer. Left providers message on secure [employer] and ask to call office and ask to speak. Allergies As of Date: 04/11/2024 Noted Allergy Reaction ACCUPRIL (QUINAPRIL) 04/14/2015 16 - Unknown CALAN (VERAPAMIL) 04/14/2015 16 - Unknown CYMBALTA (DULOXETINE) 03/01/2024 5 - Intolerance Comments: dizziness LOTENSIN (BENAZEPRIL HCL) 04/14/2015 16 - Unknown SULFA (SULFONAMIDE ANTIBIOTICS) 04/14/2015 16 - Unknown Date Reviewed: 02/23/2024 Reviewed by: Anastasiia Colón APRN.[employer]UE[employer] - Fully Assessed Reason for Visit: Question [1327] Prescriptions as of 04/12/2024 - warfarin (COUMADIN) 2 mg tablet Take 2 tablets by mouth once daily. - clopidogrel (PLAVIX) 75 mg tablet Take 1 tablet by mouth once daily. - sertraline (ZOLOFT) 25 mg tablet Take 1 tablet by mouth once daily. - furosemide (LASIX) 40 mg tablet Take 1 tablet by mouth once daily. - acetaminophen (TYLENOL) 500 mg tablet EVERY 8 HOURS - gabapentin (NEURONTIN) 100 mg capsule TWICE DAILY WITH MEALS - enoxaparin (LOVENOX) 80 mg/0.8 mL Q12H - docusate sodium (STOOL SOFTENER ORAL) Take by mouth. - traMADol (ULTRAM) 50 mg tablet EVERY 8 HOURS NEEDED as needed for PAIN 1-3 - Ferrous Fumarate 325 mg (106 mg iron) tab Take by mouth. - argin/glut/CaHMB/josh ag/mv-min (BUSTER, WITH COLLAGEN, ORAL) Take by mouth. - metoprolol succinate ER (TOPROL XL) 50 mg 24 hr tablet Take 1 tablet by mouth once daily. - glimepiride (AMARYL) 2 mg tablet Take 1 tablet by mouth daily with breakfast. Check blood sugars daily, if remaining above 200 consistently in 2 to 4 weeks will increase the dose - losartan (COZAAR) 50 mg tablet Take 1 tablet by mouth once daily. - spironolactone (ALDACTONE) 25 mg tablet Take 0.5 tablets by mouth once daily. - Miscellaneous Medical Supply Take 1 Each by mouth two times a day. Biote [place] 3+CoQ10 --30 mg of CoQ10 - cholecalciferol (VITAMIN D-3) 5,000 unit tab Take 5,000 Units by mouth. Take 1-2 tablet daily - oxybutynin ER (DITROPAN XL) 10 mg 24 hr tablet Take 1 tablet by mouth once daily. - simvastatin (ZOCOR) 80 mg tablet Take 1 tablet by mouth daily at bedtime. - fluticasone (FLONASE) 50 mcg/actuation nasal spray Use 2 Sprays in each nostril once daily. - omeprazole (PRILOSEC) 20 mg capsule Take 1 capsule by mouth daily before breakfast. 1/2 hr before meal. - ferrous sulfate 325 mg (65 mg iron) tablet Take 325 mg by mouth. - calcium carbonate (CALCIUM 600 ORAL) Take 1,200 mg by mouth. - cinnamon bark (CINNAMON ORAL) Take 4,200 mg by mouth. - sodium chloride (AYR SALINE) 0.65 % nasal spray Use 2 Sprays in the nose as needed. - propylene glycoL (SYSTANE BALANCE) 0.6 % drop 1 Drop. 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 Normal [facility] Basic Metabolic Profile (BMP )on 04-10-2024 BUN Normal 7-18 [facility] Comment on above: Result Comment: Canc elled via OM: Order cancelled - Patient discharged Performed By: #### L 100.0100, L500.2500 ####[facility] [address] [place], [address] BUN/CRE Normal 10-20 [facility] Comment on above: Result Comment: Canc elled via OM: Order cancelled - Patient discharged Performed By: #### L 100.0100, L500.2500 ####[facility] [address] [place], [address] CA,Total Normal 8.5-10.1 [facility] Comment on above: Result Comment: Canc elled via OM: Order cancelled - Patient discharged Performed By: #### L 100.0100, L500.2500 ####[facility] [address] [place], [address] CL Normal 98-107 [facility] Comment on above: Result Comment: Canc elled via OM: Order cancelled - Patient discharged Performed By: #### L 100.0100, L500.2500 ####[facility] [address] [place], [address] CO2 Normal 21.0-32.0 [facility] Comment on above: Result Comment: Canc elled via OM: Order cancelled - Patient discharged Performed By: #### L 100.0100, L500.2500 ####[facility] [address] [place], [address] CREAT,SERUM Normal 0.55-1.02 [facility] Comment on above: Result Comment: Canc elled via OM: Order cancelled - Patient discharged Performed By: #### L 100.0100, L500.2500 ####[facility] [address] [place], [address] EST GFR Normal >60 [facility] Comment on above: Result Comment: Canc elled via OM: Order cancelled - Patient discharged Performed By: #### L 100.0100, L500.2500 ####[facility] [address] [place], [address] EST GFR - AA Normal >60 [facility] Comment on above: Result Comment: Canc elled via OM: Order cancelled - Patient discharged Performed By: #### L 100.0100, L500.2500 ####[facility] [address] [place], [address] GAP Normal 5-15 [facility] Comment on above: Result Comment: Canc elled via OM: Order cancelled - Patient discharged Performed By: #### L 100.0100, L500.2500 ####[facility] [address] [place], [address] GLU Normal 74-106 [facility] Comment on above: Result Comment: Canc elled via OM: Order cancelled - Patient discharged Performed By: #### L 100.0100, L500.2500 ####[facility] [address] [place], [address] Potassium Normal 3.5-5.1 [facility] Comment on above: Result Comment: Canc elled via OM: Order cancelled - Patient discharged Performed By: #### L 100.0100, L500.2500 ####[facility] [address] [place], [address] Basic Metabolic Profile (BMP) Normal 136-145 [facility] Comment on above: Result Comment: Canc elled via OM: Order cancelled - Patient discharged Performed By: #### L 100.0100, L500.2500 ####[facility] [address] [place], [address] CBC W/Diff, Automatedon 12-1 0 Absolute Neut Normal 2.0-7.7 [facility] Comment on above: Result Comment: Canc elled via OM: Order cancelled - Patient discharged Performed By: #### L 100.0100, L500.2500 ####[facility] [address] [place], [address] HCT Normal 37-47 [facility] Comment on above: Result Comment: Canc elled via OM: Order cancelled - Patient discharged Performed By: #### L 100.0100, L500.2500 ####[facility] [address] [place], [address] HGB Normal 12.0-15.0 [facility] Comment on above: Result Comment: Canc elled via OM: Order cancelled - Patient discharged Performed By: #### L 100.0100, L500.2500 ####[facility] [address] [place], [address] MCH Normal 27.0-32.0 [facility] Comment on above: Result Comment: Canc elled via OM: Order cancelled - Patient discharged Performed By: #### L 100.0100, L500.2500 ####[facility] [address] [place], [address] MCHC Normal 32-36 [facility] Comment on above: Result Comment: Canc elled via OM: Order cancelled - Patient discharged Performed By: #### L 100.0100, L500.2500 ####[facility] [address] [place], [address] MCV Normal 81-99 [facility] Comment on above: Result Comment: Canc elled via OM: Order cancelled - Patient discharged Performed By: #### L 100.0100, L500.2500 ####[facility] [address] [place], [address] NEUT% Normal 47-70 [facility] Comment on above: Result Comment: Canc elled via OM: Order cancelled - Patient discharged Performed By: #### L 100.0100, L500.2500 ####[facility] [address] [place], [address] PLT Normal 150-450 [facility] Comment on above: Result Comment: Canc elled via OM: Order cancelled - Patient discharged Performed By: #### L 100.0100, L500.2500 ####[facility] [address] [place], [address] RBC Normal 4.2-5.4 [facility] Comment on above: Result Comment: Canc elled via OM: Order cancelled - Patient discharged Performed By: #### L 100.0100, L500.2500 ####[facility] [address] [place], [address] RDW CV Normal 11.6-14.6 [facility] Comment on above: Result Comment: Canc elled via OM: Order cancelled - Patient discharged Performed By: #### L 100.0100, L500.2500 ####[facility] [address] [place], [address] RDW SD Normal 35.1-43.9 [facility] Comment on above: Result Comment: Canc elled via OM: Order cancelled - Patient discharged Performed By: #### L 100.0100, L500.2500 ####[facility] [address] [place], [address] WBC Normal 4.4-11.0 [facility] Comment on above: Result Comment: Canc elled via OM: Order cancelled - Patient discharged Performed By: #### L 100.0100, L500.2500 ####[facility] [address] [place], [address] Basic metabolic 2000 panelon 04-09-2024 Anion gap [Moles/Vol] 16 mmol/L High 8-15 [facility] Comment on above: Order Comment: Speci men Type: BLOOD SPECIMEN Ordering Facility: [facility] Address: [address] [place] [address] Performed By: #### 2 4325-3, 65154-1 #### [facility] CLIA [id number] [address] [place] [address] [place] Calcium [Mass/Vol] 10.3 mg/dL High 8.5-10.2 [facility] Comment on above: Order Comment: Speci men Type: BLOOD SPECIMEN Ordering Facility: [facility] Address: [address] [place] [address] Performed By: #### 2 4325-3, 12098-1 #### [facility] CLIA [id number] [address] [place] [address] [place] Chloride [Moles/Vol] 103 mmol/L Normal 98-107 [facility] Comment on above: Order Comment: Speci men Type: BLOOD SPECIMEN Ordering Facility: [facility] Address: [address] [place] [address] Performed By: #### 2 4324-3, 28236-0 #### [facility] CLIA [id number] [address] [place] [address] [place] CO2 [Moles/Vol] 18 mmol/L Low 22-30 [facility] Comment on above: Order Comment: Speci men Type: BLOOD SPECIMEN Ordering Facility: [facility] Address: [address] [place] [address] Performed By: #### 2 4324-3, 22397-7 #### [facility] CLIA [id number] [address] [place] [address] [place] Creatinine [Mass/Vol] 0.82 mg/dL Normal 0.58-0.96 [facility] Comment on above: Order Comment: Speci men Type: BLOOD SPECIMEN Ordering Facility: [facility] Address: [address] [place] [address] Performed By: #### 2 5-3, 40428-5 #### [facility] CLIA [id number] [address] [place] [address] [place] Creatinine and Glomerular filtration rate.predicted panel (S/P/Bld) 71 mL/min/1.73m??? Normal >=60 [facility] Comment on above: Order Comment: Miguel cunningham Type: BLOOD SPECIMEN Ordering Facility: [facility] Address: [address] [place] [address] Result Comment: Kimberley mated Glomerular Filtration Rate [...] actual GFR. Performed By: #### 2 4325-3, 53492-1 #### [facility] CLIA [id number] [address] [place] [address] [place] Glucose [Mass/Vol] 149 mg/dL High 74-99 [facility] Comment on above: Order Comment: Miguel cunningham Type: BLOOD SPECIMEN Ordering Facility: [facility] Address: [address] [place] [address] Result Comment: The [place] [employer] (ADA) provides guidance for cutoff values for fasting glucose and random glucose. The ADA defines fasting as no caloric intake for at least 8 hours. Fasting plasma glucose results between 100 to 125 mg/dL indicate increased risk for diabetes (prediabetes). Fasting plasma glucose results greater than or equal to 126 mg/dL meet the criteria for diagnosis of diabetes. In the absence of unequivocal hyperglycemia, results should be confirmed by repeat testing. In a patient with classic symptoms of hyperglycemia or hyperglycemic crisis, random plasma glucose results greater than or equal to 200 mg/dL meet the criteria for diagnosis of diabetes. Reference: Standards of Medical Care in Diabetes 2016, [place] [employer]. Diabetes Care. 2016.39(Suppl 1). Performed By: #### 2 4325-3, 50774-1 #### [facility] CLIA [id number] [address] [place] [address] [place] Potassium [Moles/Vol] 4.4 mmol/L Normal 3.7-5.1 [facility] Comment on above: Order Comment: Speci men Type: BLOOD SPECIMEN Ordering Facility: [facility] Address: [address] [place] [address] Performed By: #### 2 4325-3, 71305-7 #### [facility] CLIA [id number] [address] [place] [address] [place] Sodium [Moles/Vol] 137 mmol/L Normal 136-144 [facility] Comment on above: Order Comment: Speci men Type: BLOOD SPECIMEN Ordering Facility: [facility] Address: [address] [place] [address] Performed By: #### 2 4325-3, 04343-1 #### [facility] CLIA [id number] [address] [place] [address] [place] Urea nitrogen [Mass/Vol] 27 mg/dL High 7-21 [facility] Comment on above: Order Comment: Speci men Type: BLOOD SPECIMEN Ordering Facility: [facility] Address: [address] [place] [address] Performed By: #### 2 4325-3, 22366-1 #### [facility] CLIA [id number] [address] [place] [address] [place] Coco 04-09-2024 CNPN Telephone (INTWS) JAROD PRITCHARD ([id number]) 1940 F Date Time Provider Department 04/09/24 KIERRA SANTIAGO INTMWS During your visit today, we recorded the following information about you: Lisseth Vaughn RN 04/09/2024 3:57 PM Signed Moisés nurse from [facility] as he saw pt today to initiate SN. Plan is he wants to see her 2x per week for 2 weeks then 1x per week for 2 weeks. Also updating provider that pt is not taking Magnesium at this time. Also notifying provider of a couple of drug interaction warnings. Warfarin/Sertraline, Oxybutynin/K+Chloride and warning on taking Warfarin and Plavix. Per med list in [facility], pt has two magnesiums listed. Moisés [...] back unless a problem or any changes. Anastasiia Colón APRN.[employer] 04/09/2024 4:08 PM Signed [facility]. Should take medications as ordered at discharge. Allergies As of Date: 04/09/2024 Noted Allergy Reaction ACCUPRIL (QUINAPRIL) 04/14/2015 16 - Unknown CALAN (VERAPAMIL) 04/14/2015 16 - Unknown CYMBALTA (DULOXETINE) 03/01/2024 5 - Intolerance Comments: dizziness LOTENSIN (BENAZEPRIL HCL) 04/14/2015 16 - Unknown SULFA (SULFONAMIDE ANTIBIOTICS) 04/14/2015 16 - Unknown Date Reviewed: 02/23/2024 Reviewed by: Anastasiia Colón APRN.BLUEPRINT MAKER - Fully Assessed Reason for Visit: Home Care Management [1305] Order(s):warfarin (COUMADIN) 2 mg tabletTake 2 tablets by mouth once daily.Disp: 90 tabletRfl: 3 clopidogrel (PLAVIX) 75 mg tabletTake 1 tablet by mouth once daily.Disp: Rfl: Prescriptions as of 04/09/2024 - warfarin (COUMADIN) 2 mg tablet Take 2 tablets by mouth once daily. - clopidogrel (PLAVIX) 75 mg tablet Take 1 tablet by mouth once daily. - sertraline (ZOLOFT) 25 mg tablet Take 1 tablet by mouth once daily. - furosemide (LASIX) 40 mg tablet Take 1 tablet by mouth once daily. - acetaminophen (TYLENOL) 500 mg tablet EVERY 8 HOURS - gabapentin (NEURONTIN) 100 mg capsule TWICE DAILY WITH MEALS - enoxaparin (LOVENOX) 80 mg/0.8 mL Q12H - docusate sodium (STOOL SOFTENER ORAL) Take by mouth. - traMADol (ULTRAM) 50 mg tablet EVERY 8 HOURS NEEDED as needed for PAIN 1-3 - Ferrous Fumarate 325 mg (106 mg iron) tab Take by mouth. - argin/glut/CaHMB/josh ag/mv-min (BUSTER, WITH COLLAGEN, ORAL) Take by mouth. - metoprolol succinate ER (TOPROL XL) 50 mg 24 hr tablet Take 1 tablet by mouth once daily. - glimepiride (AMARYL) 2 mg tablet Take 1 tablet by mouth daily with breakfast. Check blood sugars daily, if remaining above 200 consistently in 2 to 4 weeks will increase the dose - losartan (COZAAR) 50 mg tablet Take 1 tablet by mouth once daily. - spironolactone (ALDACTONE) 25 mg tablet Take 0.5 tablets by mouth once daily. - Miscellaneous Medical Supply Take 1 Each by mouth two times a day. Biote [place] 3+CoQ10 --30 mg of CoQ10 - cholecalciferol (VITAMIN D-3) 5,000 unit tab Take 5,000 Units by mouth. Take 1-2 tablet daily - oxybutynin ER (DITROPAN XL) 10 mg 24 hr tablet Take 1 tablet by mouth once daily. - simvastatin (ZOCOR) 80 mg tablet Take 1 tablet by mouth daily at bedtime. - fluticasone (FLONASE) 50 mcg/actuation nasal spray Use 2 Sprays in each nostril once daily. - omeprazole (PRILOSEC) 20 mg capsule Take 1 capsule by mouth daily before breakfast. 1/2 hr before meal. - ferrous sulfate 325 mg (65 mg iron) tablet Take 325 mg by mouth. - calcium carbonate (CALCIUM 600 ORAL) Take 1,200 mg by mouth. - cinnamon bark (CINNAMON ORAL) Take 4,200 mg by mouth. - sodium chloride (AYR SALINE) 0.65 % nasal spray Use 2 Sprays in the nose as needed. - propylene glycoL (SYSTANE BALANCE) 0.6 % drop 1 Drop. Medication notes this encounter WARFARIN 2 MG TABLET >> Lisseth Vaughn RN 04/09/2024 3:47 PM >> LISSETH VAUGNH Apr 09, 2024 3:47 PM Patient is taking again. 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 Normal [facility] Hepatic function 2000 panelo n 04-09-2024 Albumin [Mass/Vol] 4.3 g/dL Normal 3.9-4.9 [facility] Comment on above: Order Comment: Speci men Type: BLOOD SPECIMENOrdering Facility: [facility] Address: [address] [place] [address] Performed By: #### 2 4325-3, 84914-6 ####[facility] [id number] [place] [address] [place] ALP [Catalytic activity/Vol] 89 U/L Normal 34-123 [facility] Comment on above: Order Comment: Speci men Type: BLOOD SPECIMENOrdering Facility: [facility] Address: [address] [place] [address] Performed By: #### 2 4325-3, 55348-3 ####[facility]CLIA [id number] [place] [address] [place] ALT [Catalytic activity/Vol] 27 U/L Normal 7-38 [facility] Comment on above: Order Comment: Speci men Type: BLOOD SPECIMENOrdering Facility: [facility] Address: [address] [place] [address] Performed By: #### 2 4325-3, 69278-2 ####[facility]IA [id number] [place] [address] [place] AST [Catalytic activity/Vol] 28 U/L Normal 13-35 [facility] Comment on above: Order Comment: Speci men Type: BLOOD SPECIMENOrdering Facility: [facility] Address: [address] [place] [address] Performed By: #### 2 4325-3, 12729-7 ####[facility]CLIA [id number] [place] [address] [place] Bilirubin [Mass/Vol] 0.4 mg/dL Normal 0.2-1.3 [facility] Comment on above: Order Comment: Speci men Type: BLOOD SPECIMENOrdering Facility: [facility] Address: [address] [place] [address] Performed By: #### 2 4325-3, 58491-4 ####[facility]IA [id number] [place] [address] [place] Bilirubin.conjugated [Mass/Vol] mg/dL Normal <0.2 [facility] Comment on above: Order Comment: Speci men Type: BLOOD SPECIMENOrdering Facility: [facility] Address: [address] [place] [address] Performed By: #### 2 4325-3, 71348-0 ####[facility]CLIA [id number] [place] [id number] [place] Protein [Mass/Vol] 8.0 g/dL Normal 6.3-8.0 [facility] Comment on above: Order Comment: Speccornelius cunningham Type: BLOOD SPECIMENOrdering Facility: [facility] Address: [address] [place] [address] Performed By: #### 2 4325-3, 35683-0 ####[facility]CLIA [id number] [id number] [address] [place] PT panel Coag (PPP)on 2023 INR Coag (PPP) [Relative time] 1.7 {INR} High 0.9-1.3 [facility] Comment on above: Order Comment: Miguel cunningham Type: BLOOD SPECIMENOrdering Facility: [facility] Address: [address] [place] [address] Result Comment: Geetha min K Antagonist (VKA) Therapeutic Range: INR 2 to 3 (Target INR of 2.5) Note: For patients treated with VKA drugs, such as warfarin, the [place] [employer] 2012 Guideline recommends a therapeutic INR range of 2 to 3 (target INR of 2.5). This recommendation includes high-risk patients with antiphospholipid syndrome with previous arterial or venous thromboembolism, current-generation mechanical or bioprosthetic aortic heart valve replacement. Note: Patients with mechanical aortic valve replacement and additional risk factors for thromboembolic events (atrial fibrillation, previous thromboembolism, LV dysfunction, hypercoagulable conditions) or an older generation mechanical AVR (i.e., ball in-Cage) or any mechanical MVR should have a INR therapeutic range of 2.5 to 3.5 (target INR of 3). Oscar GH, et al. Chest 2012, 141:7S-47S Jovanna RA, et al. [facility] 2017, 70: 252-289 Performed By: #### 3 4528-0 ####[facility] [id number] [place] [address] [place] PT Coag (PPP) [Time] 17.0 s High <13.1 [facility] Comment on above: Order Comment: Miguel cunningham Type: BLOOD SPECIMENOrdering Facility: [facility] Address: [address] [place], [place] [address] Performed By: #### 3 4528-0 ####[facility] [id number] [place] [address] [place] Prothrombin Time w/INRon INR Normal [facility] Comment on above: Result Comment: Canc elled via OM: Order cancelled - Patient discharged Performed By: #### L 300.3900 ####[facility] [address] [place], [address] PROTIME Normal 11.7-14.9 [facility] Comment on above: Result Comment: Canc elled via OM: Order cancelled - Patient discharged Performed By: #### L 300.3900 ####[facility] [address] [place], [address] Bedside Glucoseon 04-08-2024 FINGERSTICK GLU 125 mg/dL High [address] [facility] Comment on above: Result Comment: LEVI HYDE OF PATIENT CARE PER NURSING PROTOCOL Performed By: #### L 501.080 ####[facility] [address] [place], [address] [facility] deOrdered By: Jason Smith on 04-08-2024 Bedside Glucose (Misc Panel) 125 mg/dL [address] Comment on above: MANAGEMENT OF PATIEN T CARE PER NURSING PROTOCOL International normalized rat io (INR) calculationOrdered By: Jason Smith on 04-08-2024 INR Coag (Bld) [Relative time] 1.2 {INR} [facility] Prothrombin Time w/INRon INR Coag (PPP) [Relative time] 1.2 {INR} Normal [facility] Comment on above: Performed By: #### L 300.3900 ####[facility] [address] [place], [address] PT Coag (PPP) [Time] 15.6 s High 11.7-14.9 [facility] Comment on above: Performed By: #### L 300.3900 ####[facility] [address] [facility] 945811 Prothrombin timeOrdered By: Jason Luis on 04-08-2024 PT Coag (PPP) [Time] 15.6 s High 11.7-14.9 [facility] Bedside Glucoseon 04-07-2024 FINGERSTICK GLU 146 mg/dL High 74-106 [facility] Comment on above: Result Comment: LEVI GEMENT OF PATIENT CARE PER NURSING PROTOCOL Performed By: #### L 501.080 ####[facility] [address] [facility] [address]141 Bedside Glucoseon 04-06-2024 FINGERSTICK GLU 116 mg/dL High 74-106 [facility] Comment on above: Result Comment: LEVI GEMENT OF PATIENT CARE PER NURSING PROTOCOL Performed By: #### L 501.080 ####[facility] [address] [place] [id number] Absolute neutrophil countOrd ered By: Jason Smith on 04-05-2024 Neutrophils (Bld) [#/Vol] 4.1 10*3/uL 2.0-7.7 [facility] Basophil percentageOrdered B y: Jason Luis on 04-05-2024 Basophils/100 WBC (Bld) 0.8 % 0-1 [facility] Bedside Glucoseon 04-05-2024 FINGER[place]ICK GLU 110 mg/dL High 74-106 [facility] Comment on above: Result Comment: LEVI GEMENT OF PATIENT CARE PER NURSING PROTOCOL Performed By: #### L 501.080 ####[facility] [address] [facility] 615511 CBC W/Diff, Automatedon Absolute Lymph 1.39 X10 3/uL Normal 0.83-4.51 [facility] Comment on above: Performed By: #### L 100.0100 ####[facility] [address] [place], [address] Absolute Neut 4.1 X10 3/uL Normal 2.0-7.7 [facility] Comment on above: Performed By: #### L 100.0100 ####[facility] [address] [place], [address] Basophils/100 WBC (Bld) 0.8 % Normal 0-1 [facility] Comment on above: Performed By: #### L 100.0100 ####[facility] [address] [place], [address] Eosinophils/100 WBC (Bld) 2.7 % Normal 0-5 [facility] Comment on above: Performed By: #### L 100.0100 ####[facility] [address] [place], [address] Erythrocyte distribution width (RBC) [Ratio] 16.3 % High 11.6-14.6 [facility] Comment on above: Performed By: #### L 100.0100 ####[facility] [address] [place], [address] Hematocrit (Bld) [Volume fraction] 39.1 % Normal 37-47 [facility] Comment on above: Performed By: #### L 100.0100 ####[facility] [address] [place], [address] Hemoglobin (Bld) [Mass/Vol] 12.3 g/dL Normal 12.0-15.0 [facility] Comment on above: Performed By: #### L 100.0100 ####[facility] [facility] [address] [place], [address] IG% 0.300 Normal 0.0-0.9 [facility] Comment on above: Result Comment: IG% - Immature Granulocytes (promyelocytes, myelocytes andmetamyelocytes) > 1% indicates that a LEFT SHIFT is Present. Performed By: #### L 100.0100 ####[facility] [address] [place], [address] Lymphocytes/100 WBC (Bld) 21.1 % Normal 19-41 [facility] Comment on above: Performed By: #### L 100.0100 ####[facility] [address] [place], [address] MCH (RBC) [Entitic mass] 28.8 pg Normal 27.0-32.0 [facility] Comment on above: Performed By: #### L 100.0100 ####[facility] [address] [place], [address] MCHC (RBC) [Mass/Vol] 31.5 g/dL Low 32-36 [facility] Comment on above: Performed By: #### L 100.0100 ####[facility] [address] [place], [address] MCV (RBC) [Entitic vol] 91.6 fL Normal 81-[address] [facility] Comment on above: Performed By: #### L 100.0100 ####[facility] [address] [place], [address] Monocytes/100 WBC (Bld) 12.6 % High 0-10 [facility] Comment on above: Performed By: #### L 100.0100 ####[facility] [address] [place], [address] Neutrophils/100 WBC (Bld) 62.5 % Normal 47-70 [facility] Comment on above: Performed By: #### L 100.0100 ####[facility] [address] [place], [address] Nucleated RBC (Bld) [#/Vol] 0 10*3/uL Normal 0-5 [facility] Comment on above: Performed By: #### L 100.0100 ####[facility] [address] [place], [address] Platelet mean volume (Bld) [Entitic vol] 9.2 fL Normal 6.2-12.0 [facility] Comment on above: Performed By: #### L 100.0100 ####[facility] [address] [place], [address] Platelets (Bld) [#/Vol] 307 10*3/uL Normal 150-450 [facility] Comment on above: Performed By: #### L 100.0100 ####[facility] [address] [place], [address] RBC (Bld) [#/Vol] 4.27 10*6/uL Normal 4.2-5.4 [facility] Comment on above: Performed By: #### L 100.0100 ####[facility] [address] [place], [address] RDW SD 54.7 fl High 35.1-43.9 [facility] Comment on above: Performed By: #### L 100.0100 ####[facility] [address] [place], [address] WBC (Bld) [#/Vol] 6.6 10*3/uL Normal 4.4-11.0 [facility] Comment on above: Performed By: #### L 100.0100 ####[facility] [address] [place], [address] CNPTyesha 04-05-2024 CNPN Telephone (INTMWS) JAROD PRITCHARD ([id number]) 1940 F Date Time Provider Department 04/05/24 KIERRA SANTIAGO During your visit today, we recorded the following information about you: Noemi Cullen RN 04/05/2024 11:55 AM Signed Le with [facility] calling and states patient will be discharging from [facility] this Tuesday. Requesting verbal order for patient for Home Health Group Home, PT and OT. Asking if provider will sign and follow for these orders. Call Le with verbal order at [phone]. Thank you. Anastasiia Colón APRN.[employer] 04/05/2024 4:21 PM Signed [place] [facility] Bekah Vivas LPN 04/05/2024 4:51 PM Signed No answer. Left providers message on confidential voice mail Allergies As of Date: 04/05/2024 Noted Allergy Reaction ACCUPRIL (QUINAPRIL) 04/14/2015 16 - Unknown CALAN (VERAPAMIL) 04/14/2015 16 - Unknown CYMBALTA (DULOXETINE) 03/01/2024 5 - Intolerance Comments: dizziness LOTENSIN (BENAZEPRIL HCL) 04/14/2015 16 - Unknown SULFA (SULFONAMIDE ANTIBIOTICS) 04/14/2015 16 - Unknown Date Reviewed: 02/23/2024 Reviewed by: Anastasiia Colón APRN.BLUEPRINT MAKER - Fully Assessed Reason for Visit: Home Health Orders [Other] Prescriptions as of 04/05/2024 - sertraline (ZOLOFT) 25 mg tablet Take 1 tablet by mouth once daily. - furosemide (LASIX) 40 mg tablet Take 1 tablet by mouth once daily. - acetaminophen (TYLENOL) 500 mg tablet EVERY 8 HOURS - gabapentin (NEURONTIN) 100 mg capsule TWICE DAILY WITH MEALS - enoxaparin (LOVENOX) 80 mg/0.8 mL Q12H - magnesium chloride (MAG64) [address] tablet Take 64 mg by mouth two times a day. - docusate sodium (STOOL SOFTENER ORAL) Take by mouth. - traMADol (ULTRAM) 50 mg tablet EVERY 8 HOURS NEEDED as needed for PAIN 1-3 - Ferrous Fumarate 325 mg (106 mg iron) tab Take by mouth. - argin/glut/CaHMB/josh ag/mv-min (BUSTER, WITH COLLAGEN, ORAL) Take by mouth. - metoprolol succinate ER (TOPROL XL) 50 mg 24 hr tablet Take 1 tablet by mouth once daily. - glimepiride (AMARYL) 2 mg tablet Take 1 tablet by mouth daily with breakfast. Check blood sugars daily, if remaining above 200 consistently in 2 to 4 weeks will increase the dose - losartan (COZAAR) 50 mg tablet Take 1 tablet by mouth once daily. - spironolactone (ALDACTONE) 25 mg tablet Take 0.5 tablets by mouth once daily. - Miscellaneous Medical Supply Take 1 Each by mouth two times a day. Biote [place] 3+CoQ10 --30 mg of CoQ10 - cholecalciferol (VITAMIN D-3) 5,000 unit tab Take 5,000 Units by mouth. Take 1-2 tablet daily - Magnesium 200 mg tab Take by mouth. - oxybutynin ER (DITROPAN XL) 10 mg 24 hr tablet Take 1 tablet by mouth once daily. - simvastatin (ZOCOR) 80 mg tablet Take 1 tablet by mouth daily at bedtime. - warfarin (COUMADIN) 2 mg tablet Take 1 tablet by mouth once daily. 1mg T, TH mg M,W,F, Sat, SUN or as directed - fluticasone (FLONASE) 50 mcg/actuation nasal spray Use 2 Sprays in each nostril once daily. - omeprazole (PRILOSEC) 20 mg capsule Take 1 capsule by mouth daily before breakfast. 1/2 hr before meal. - ferrous sulfate 325 mg (65 mg iron) tablet Take 325 mg by mouth. - calcium carbonate (CALCIUM 600 ORAL) Take 1,200 mg by mouth. - cinnamon bark (CINNAMON ORAL) Take 4,200 mg by mouth. - sodium chloride (AYR SALINE) 0.65 % nasal spray Use 2 Sprays in the nose as needed. - propylene glycoL (SYSTANE BALANCE) 0.6 % drop 1 Drop. 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] 07/01/2022 Bilateral carotid artery stenosis [I65.23] 03/15/2023 Elevated HDL [E78.89] 03/15/2023 Factor 5 Leiden mutation, heterozygous ([facility]) [D*03/15/2023 Peripheral vascular disease, unspecified ([facility]) *06/07/2023 Encounter Status:Closed by BEKAH VIVAS on 04/05/24 Normal [facility] Eosinophil percentageOrdered By: Jason Smith on 04-05-2024 Eosinophils/100 WBC (Bld) 2.7 % 0-5 [facility] Erythrocyte distribution wid th ratioOrdered By: Jason Smith on 04-05-2024 Erythrocyte distribution width (RBC) [Ratio] 16.3 % High 11.6-14.6 [facility] Erythrocyte distribution wid th standard deviationOrdered By: Jason Smith on 04-05-2024 Erythrocyte distribution width (RBC) [Entitic vol] 54.7 fL High 35.1-43.9 [facility] Hematocrit Auto (Bld) [Volum e fraction]Ordered By: [facility] Luis on 04-05-2024 Hematocrit (Bld) [Volume fraction] 39.1 % 37-47 [facility] Hemoglobin measurementOrdere d By: Jason Smith on 04-05-2024 Hemoglobin (Bld) [Mass/Vol] 12.3 g/dL 12.0-15.0 [facility] Immature granulocytes/100 WB C Auto (Bld)Ordered By: Jason Smith on 04-05-2024 Immature granulocytes/100 WBC (Bld) 0.300 % 0.0-0.9 [facility] Comment on above: IG% - Immature Granu locytes (promyelocytes, myelocytes and metamyelocytes) > 1% indicates that a LEFT SHIFT is Present. Lymphocytes Auto (Unsp spec) [#/Vol]Ordered By: Jason Smith on 04-05-2024 Lymphocytes (Bld) [#/Vol] 1.39 10*3/uL 0.83-4.51 [facility] Lymphocytes/100 WBC Auto (Un sp spec)Ordered By: Jason Smith on 04-05-2024 Lymphocytes/100 WBC (Bld) 21.1 % 19-41 [facility] MCV (mean corpuscular volume ) determinationOrdered By: Jason Smith on 04-05-2024 MCV (RBC) [Entitic vol] 91.6 fL 81-99 [facility] Mean corpuscular hemoglobin (MCH) determinationOrdered By: Jason Smith on 04-05-2024 MCH (RBC) [Entitic mass] 28.8 pg 27.0-32.0 [facility] Mean corpuscular hemoglobin concentration (MCHC) determinationOrdered By: Jason Smith on 04-05-2024 MCHC (RBC) [Mass/Vol] 31.5 g/dL Low 32-36 [facility] Mean platelet volume determi nationOrdered By: Jason Smith on 04-05-2024 Platelet mean volume (Bld) [Entitic vol] 9.2 fL 6.2-12.0 [facility] Monocyte percentageOrdered B y: Jason Smith on 04-05-2024 Monocytes/100 WBC (Bld) 12.6 % High 0-10 [facility] Neutrophil percentageOrdered By: Jason Smith on 04-05-2024 Neutrophils/100 WBC (Bld) 62.5 % 47-70 [facility] Nucleated red blood cell per centageOrdered By: Jason Smith on 04-05-2024 Nucleated RBC/100 WBC (Bld) [Ratio] 0 % 0-5 [facility] Platelet countOrdered By: Parth Smith on 04-05-2024 Platelets (Bld) [#/Vol] 307 10*3/uL 150-450 [facility] Prothrombin Time w/INRon INR Coag (PPP) [Relative time] 1.1 {INR} Normal [facility] Comment on above: Performed By: #### L 300.3900 ####[facility] [address] [place], [address] PT Coag (PPP) [Time] 14.1 s Normal 11.7-14.9 [facility] Comment on above: Performed By: #### L 300.3900 ####[facility] [address] [place], [place], [id number] RBC Auto (Bld) [#/Vol]Ordere d By: Jason Smith on 04-05-2024 RBC (Bld) [#/Vol] 4.27 10*6/uL 4.2-5.4 [facility] White blood cell (WBC) count Ordered By: Jason Smith on 04-05-2024 WBC (Bld) [#/Vol] 6.6 10*3/uL 4.4-11.0 [facility] Bedside Glucoseon 04-04-2024 FINGERSTICK GLU 131 mg/dL High 74-106 [facility] Comment on above: Result Comment: LEVI GEMENT OF PATIENT CARE PER NURSING PROTOCOL Performed By: #### L 501.080 ####[facility] [address] [place], [place], [id number] FINGERSTICK GLU 109 mg/dL High 74-106 [facility] Comment on above: Result Comment: LEVI GEMENT OF PATIENT CARE PER NURSING PROTOCOL Performed By: #### L 501.080 ####[facility] [address] [place], [place], [address] EGD Reporton 04-04-2024 EGD Report Normal [facility] Gl[facility] at [facility] deOrdered By: Robb Giron on 04-04-2024 Bedside Glucose (Misc Panel) 131 mg/dL High 74-106 [facility] Comment on above: MANAGEMENT OF PATIEN T CARE PER NURSING PROTOCOL H Pylori (initial)on 024 H Pylori (initial) Normal [facility] Comment on above: Performed By: #### P H.PYLORI ####[facility] [address] [place], [place], [id number] MR/POSTOP.ANEon 04-04-2024 MR/POSTOP.ANE Normal [facility] MR/[id number] 04-04-2024 MR/POSTOPAN2 Normal [facility] Surgery Specimen Level Aj 04-04-2024 Surgery Specimen Level IV Normal [facility] Comment on above: Performed By: #### P SUIV ####[facility] [address] [place], [address] Basic Metabolic Profile (BMP )on 04-03-2024 BUN/CRE 43.0 RATIO High 10-20 [facility] Comment on above: Performed By: #### L 100.0100, L500.2500 ####[facility] [address] [place], [address] CA,Total 9.4 mg/dL Normal 8.5-10.1 [facility] Comment on above: Performed By: #### L 100.0100, L500.2500 ####[facility] [address] [place], [address] Chloride [Moles/Vol] 108 mmol/L High 98-107 [facility] Comment on above: Performed By: #### L 100.0100, L500.2500 ####[facility] [address] [place], [address] CO2 [Moles/Vol] 23.0 mmol/L Normal 21.0-32.0 [facility] Comment on above: Performed By: #### L 100.0100, L500.2500 ####[facility] [address] [place], [address] Creatinine [Mass/Vol] 0.77 mg/dL Normal 0.55-1.02 [facility] Comment on above: Result Comment: The validity of the calculated GFR GFRAA in patients over70 years has not been determined. Clinical correlation isessential. Performed By: #### L 100.0100, L500.2500 ####[facility] [address] [place], [address] ECRCL 46.93 ml/min Normal [facility] Comment on above: Performed By: #### L 100.0100, L500.2500 ####[facility] [address] [place], [address] EST GFR - AA 92 mL/min Normal >60 [facility] Comment on above: Result Comment: Afri can Trin[place] GFR Calc Performed By: #### L 100.0100, L500.2500 ####[facility] [address] [place], [address] GAP 7 Normal 5-15 [facility] Comment on above: Performed By: #### L 100.0100, L500.2500 ####[facility] [address] [place], [address] GFR/1.73 sq M.predicted among non-blacks MDRD (S/P/Bld) [Vol rate/Area] 76 mL/min/{1.73_m2} Normal >60 [facility] Comment on above: Result Comment: Non- GFR Calc Performed By: #### L 100.0100, L500.2500 ####[facility] [address] [place], [address] Glucose [Mass/Vol] 89 mg/dL Normal 74-106 [facility] Comment on above: Performed By: #### L 100.0100, L500.2500 ####[facility] [address] [place], [address] Potassium [Moles/Vol] 3.6 mmol/L Normal 3.5-5.1 [facility] Comment on above: Performed By: #### L 100.0100, L500.2500 ####[facility] [address] [place], [address] Sodium [Moles/Vol] 138 mmol/L Normal 136-145 [facility] Comment on above: Performed By: #### L 100.0100, L500.2500 ####[facility] [address] [place], [address] Urea nitrogen [Mass/Vol] 33 mg/dL High 7-18 [facility] Comment on above: Performed By: #### L 100.0100, L500.2500 ####[facility] [address] [place], [address] Bedside Glucoseon 04-03-2024 FINGERSTICK GLU 98 mg/dL Normal 74-106 [facility] Comment on above: Result Comment: LEVI HYDE OF PATIENT CARE PER NURSING PROTOCOL Performed By: #### L 501.080 ####[facility] [address] [place], [address] Blood urea nitrogen (BUN)/cr eatinine ratioOrdered By: Jason Smith on 04-03-2024 Urea nitrogen/Creatinine [Mass ratio] 43.0 mg/mg High 10-20 [facility] CBC W/Diff, Automatedon Absolute Lymph 1.62 X10 3/uL Normal 0.83-4.51 [facility] Comment on above: Performed By: #### L 100.0100, L500.2500 ####[facility] [address] [place], [address] Absolute Neut 2.6 X10 3/uL Normal 2.0-7.7 [facility] Comment on above: Performed By: #### L 100.0100, L500.2500 ####[facility] [address] [place], [address] Basophils/100 WBC (Bld) 1.1 % High 0-1 [facility] Comment on above: Performed By: #### L 100.0100, L500.2500 ####[facility] [address] [place], [address] Eosinophils/100 WBC (Bld) 3.9 % Normal 0-5 [facility] Comment on above: Performed By: #### L 100.0100, L500.2500 ####[facility] [address] [place], [address] Erythrocyte distribution width (RBC) [Ratio] 16.4 % High 11.6-14.6 [facility] Comment on above: Performed By: #### L 100.0100, L500.2500 ####[facility] [address] [place], [address] Hematocrit (Bld) [Volume fraction] 37.7 % Normal 37-47 [facility] Comment on above: Performed By: #### L 100.0100, L500.2500 ####[facility] [address] [place], [address] Hemoglobin (Bld) [Mass/Vol] 12.0 g/dL Normal 12.0-15.0 [facility] Comment on above: Performed By: #### L 100.0100, L500.2500 ####[facility] [address] [place], [address] IG% 0.400 Normal 0.0-0.9 [facility] Comment on above: Result Comment: IG% - Immature Granulocytes (promyelocytes, myelocytes andmetamyelocytes) > 1% indicates that a LEFT SHIFT is Present. Performed By: #### L 100.0100, L500.2500 ####[facility] [address] [place], [address] Lymphocytes/100 WBC (Bld) 30.2 % Normal 19-41 [facility] Comment on above: Performed By: #### L 100.0100, L500.2500 ####[facility] [address] [place], [address] MCH (RBC) [Entitic mass] 28.9 pg Normal 27.0-32.0 [facility] Comment on above: Performed By: #### L 100.0100, L500.2500 ####[facility] [address] [place], [address] MCHC (RBC) [Mass/Vol] 31.8 g/dL Low 32-36 [facility] Comment on above: Performed By: #### L 100.0100, L500.2500 ####[facility] [address] [place], [address] MCV (RBC) [Entitic vol] 90.8 fL Normal 81-99 [facility] Comment on above: Performed By: #### L 100.0100, L500.2500 ####[facility] [address] [place], [address] Monocytes/100 WBC (Bld) 15.9 % High 0-10 [facility] Comment on above: Performed By: #### L 100.0100, L500.2500 ####[facility] [address], [address] Neutrophils/100 WBC (Bld) 48.5 % Normal 47-70 [facility] Comment on above: Performed By: #### L 100.0100, L500.2500 ####[facility] [address], [address] Nucleated RBC (Bld) [#/Vol] 0 10*3/uL Normal 0-5 [facility] Comment on above: Performed By: #### L 100.0100, L500.2500 ####[facility] [address] [place], [address] Platelet mean volume (Bld) [Entitic vol] 8.9 fL Normal 6.2-12.0 [facility] Comment on above: Performed By: #### L 100.0100, L500.2500 ####[facility] [address] [place], [address] Platelets (Bld) [#/Vol] 361 10*3/uL Normal 150-450 [facility] Comment on above: Performed By: #### L 100.0100, L500.2500 ####[facility] [address] [place], [address] RBC (Bld) [#/Vol] 4.15 10*6/uL Low 4.2-5.4 [facility] Comment on above: Performed By: #### L 100.0100, L500.2500 ####[facility] [address] [place], [address] RDW SD 54.6 fl High 35.1-43.9 [facility] Comment on above: Performed By: #### L 100.0100, L500.2500 ####[facility] [address] [place], [address] WBC (Bld) [#/Vol] 5.4 10*3/uL Normal 4.4-11.0 [facility] Comment on above: Performed By: #### L 100.0100, L500.2500 ####[facility] [address] [place], [address] Carbon dioxide measurementOr dered By: Jason Smith on 04-03-2024 CO2 [Moles/Vol] 23.0 mmol/L 21.0-32.0 [facility] Chloride measurementOrdered By: Jason Smith on 04-03-2024 Chloride [Moles/Vol] 108 mmol/L High 98-107 [facility] Estimated glomerular filtrat ion rate (GFR) AmericanOrdered By: Jason Smith on 04-03-2024 Estimated GFR (MDRD) Amer 92 mL/min >60 [facility] Comment on above: GFR Calc Estimation of creatinine noelle aranceOrdered By: Jason Smith on 04-03-2024 Estimated Creatinine Clearance Calc 46.93 ml/min [facility] Glomerular filtration rate ( GFR) estimationOrdered By: Jason Smith on 04-03-2024 Estimated GFR (MDRD) Non-Af Amer 76 mL/min >60 [facility] Comment on above: Non- GFR Calc Glucose measurementOrdered B y: Jason Smith on 04-03-2024 Glucose [Mass/Vol] 89 mg/dL 74-106 [facility] Potassium measurementOrdered By: Jason Smith on 04-03-2024 Potassium [Moles/Vol] 3.6 mmol/L 3.5-5.1 [facility] Serum anion gap measurementO rdered By: Jason Luis on 04-03-2024 Anion gap [Moles/Vol] 7 mmol/L 5-15 [facility] Serum or plasma calcium walker urement (mass/volume)Ordered By: Jason Smith on 04-03-2024 Calcium [Mass/Vol] 9.4 mg/dL 8.5-10.1 [facility] Serum or plasma creatinine m easurement (mass/volume)Ordered By: Jason Smith on 04-03-2024 Creatinine [Mass/Vol] 0.77 mg/dL 0.55-1.02 [facility] Comment on above: The validity of the calculated GFR & GFRAA in patients over 70 years has not been determined. Clinical correlation is essential. Serum or plasma urea nitroge n measurement (mass/volume)Ordered By: Jason Smith on 04-03-2024 Urea nitrogen [Mass/Vol] 33 mg/dL High 7-18 [facility] Sodium levelOrdered By: Jason Smith on 04-03-2024 Sodium [Moles/Vol] 138 mmol/L 136-145 [facility] Bedside Glucoseon 04-02-2024 FINGERSTICK GLU 114 mg/dL High 74-106 [facility] Comment on above: Result Comment: LEVI HYDE OF PATIENT CARE PER NURSING PROTOCOL Performed By: #### L 501.080 ####[facility] [address] [place], [place], [address] CBC W/Diff, Automatedon Absolute Lymph 1.45 X10 3/uL Normal 0.83-4.51 [facility] Comment on above: Performed By: #### L 100.0100 ####[facility] [address] [place], [address] Absolute Neut 2.8 X10 3/uL Normal 2.0-7.7 [facility] Comment on above: Performed By: #### L 100.0100 ####[facility] [address] [place], [address] Basophils/100 WBC (Bld) 0.9 % Normal 0-1 [facility] Comment on above: Performed By: #### L 100.0100 ####[facility] [address] [place], [address] Eosinophils/100 WBC (Bld) 3.5 % Normal 0-5 [facility] Comment on above: Performed By: #### L 100.0100 ####[facility] [address] [place], [address] Erythrocyte distribution width (RBC) [Ratio] 16.4 % High 11.6-14.6 [facility] Comment on above: Performed By: #### L 100.0100 ####[facility] [address] [place], [address] Hematocrit (Bld) [Volume fraction] 37.0 % Normal 37-47 [facility] Comment on above: Performed By: #### L 100.0100 ####[facility] [address] [place], [address] Hemoglobin (Bld) [Mass/Vol] 11.9 g/dL Low 12.0-15.0 [facility] Comment on above: Performed By: #### L 100.0100 ####[facility] [address] [place], [address] IG% 0.400 Normal 0.0-0.9 [facility] Comment on above: Result Comment: IG% - Immature Granulocytes (promyelocytes, myelocytes andmetamyelocytes) > 1% indicates that a LEFT SHIFT is Present. Performed By: #### L 100.0100 ####[facility] [address] [place], [address] Lymphocytes/100 WBC (Bld) 27.1 % Normal 19-41 [facility] Comment on above: Performed By: #### L 100.0100 ####[facility] [address] [place], [address] MCH (RBC) [Entitic mass] 29.4 pg Normal 27.0-32.0 [facility] Comment on above: Performed By: #### L 100.0100 ####[facility] [address] [place], [address] MCHC (RBC) [Mass/Vol] 32.2 g/dL Normal 32-36 [facility] Comment on above: Performed By: #### L 100.0100 ####[facility] [address] [place], [address] MCV (RBC) [Entitic vol] 91.4 fL Normal 81-[address] [facility] Comment on above: Performed By: #### L 100.0100 ####[facility] [address] [place], [address] Monocytes/100 WBC (Bld) 15.9 % High 0-[address] [facility] Comment on above: Performed By: #### L 100.0100 ####[facility] [address] [place], [address] Neutrophils/100 WBC (Bld) 52.2 % Normal 47-70 [facility] Comment on above: Performed By: #### L 100.0100 ####[facility] [address] [place], [address] Nucleated RBC (Bld) [#/Vol] 0.4 10*3/uL Normal 0-5 [facility] Comment on above: Performed By: #### L 100.0100 ####[facility] [address] [place], [address] Platelet mean volume (Bld) [Entitic vol] 9.1 fL Normal 6.2-12.0 [facility] Comment on above: Performed By: #### L 100.0100 ####[facility] [address] [facility] [place], [address] Platelets (Bld) [#/Vol] 386 10*3/uL Normal 150-450 [facility] Comment on above: Performed By: #### L 100.0100 ####[facility] [address] [place], [address] RBC (Bld) [#/Vol] 4.05 10*6/uL Low 4.2-5.4 [facility] Comment on above: Performed By: #### L 100.0100 ####[facility] [address] [place], [address] RDW SD 55.0 fl High 35.1-43.9 [facility] Comment on above: Performed By: #### L 100.0100 ####[facility] [address] [place], [address] WBC (Bld) [#/Vol] 5.4 10*3/uL Normal 4.4-11.0 [facility] Comment on above: Performed By: #### L 100.0100 ####[facility] [address] [place], [address] COVID 19 AG RAPID (XOCHILT Vaughn)on 04-02-2024 SARS-CoV-2 (COVID-19) RNA MARCOS+probe Ql (Unsp spec) Normal [facility] Comment on above: Performed By: #### M 100.505 ####[facility] [address] [place], [address] MR/CON.PCM.GIon 04-02-2024 MR/CON.PCM.GI Normal [facility] Prothrombin Time w/INRon INR Coag (PPP) [Relative time] 1.1 {INR} Normal [facility] Comment on above: Performed By: #### L 300.3900 ####[facility] [address] [place], [address] PT Coag (PPP) [Time] 14.2 s Normal 11.7-14.9 [facility] Comment on above: Performed By: #### L 300.3900 ####[facility] [address] [place], [address] SARS-CoV-2 (COVID-19) Ag IA. rapid Ql (Resp)Ordered By: Jason Smith on 04-02-2024 SARS-CoV-2 Antigen (Rapid) [facility] Bedside Glucoseon 04-01-2024 FINGERSTICK GLU 106 mg/dL Normal 74-106 [facility] Comment on above: Result Comment: LEVI GEMENT OF PATIENT CARE PER NURSING PROTOCOL Performed By: #### L 501.080 ####[facility] [address] [place], [place], [phone] Bedside Glucoseon 03-31-2024 FINGERSTICK GLU 109 mg/dL High 74-106 [facility] Comment on above: Result Comment: LEVI GEMENT OF PATIENT CARE PER NURSING PROTOCOL Performed By: #### L 501.080 ####[facility] [address] [place], [address] Bedside Glucoseon 03-30-2024 FINGERSTICK GLU 142 mg/dL High 74-106 [facility] Comment on above: Result Comment: LEVI GEMENT OF PATIENT CARE PER NURSING PROTOCOL Performed By: #### L 501.080 ####[facility] [address] [place], [address] Bedside Glucoseon 03-29-2024 FINGERSTICK GLU 107 mg/dL High 74-106 [facility] Comment on above: Result Comment: LEVI GEMENT OF PATIENT CARE PER NURSING PROTOCOL Performed By: #### L 501.080 ####[facility] [address] [place], [address] Prothrombin Time w/INRon INR Coag (PPP) [Relative time] 2.4 {INR} Normal [facility] Comment on above: Performed By: #### L 300.3900 ####[facility] [address] [place], [address] PT Coag (PPP) [Time] 26.2 s High 11.7-14.9 [facility] Comment on above: Performed By: #### L 300.3900 ####[facility] [address] [place], [address] Bedside Glucoseon 03-28-2024 FINGERSTICK GLU 106 mg/dL Normal 74-106 [facility] Comment on above: Result Comment: LEVI HYDE OF PATIENT CARE PER NURSING PROTOCOL Performed By: #### L 501.080 ####[facility] [address] [place], [address] Lower GI hemoglobin IA Ql (S tl)Ordered By: Jason Smith on 03-28-2024 Stool Occult Blood (LATANYA) Positive Abnormal [facility] Stool Occult Blood iFOBon STOB Positive Normal [facility] Comment on above: Performed By: #### M 100.7900 ####[facility] [address] [place], [address] BRCon 03-27-2024 RC Normal [facility] Comment on above: Result Comment: [id number] AP RC TRANSFUSED 03/27/24 [id number] AP RC TRANSFUSED 03/27/24 1543 Performed By: #### B TS, BR ####[facility] [address] [place], [address] Basic Metabolic Profile (BMP )on 03-27-2024 BUN/CRE 46.6 RATIO High 10-20 [facility] Comment on above: Performed By: #### L 500.2500, L100.0100 ####[facility] [address] [place], [address] CA,Total 8.9 mg/dL Normal 8.5-10.1 [facility] Comment on above: Performed By: #### L 500.2500, L100.0100 ####[facility] [address] [place], [address] Chloride [Moles/Vol] 109 mmol/L High 98-107 [facility] Comment on above: Performed By: #### L 500.2500, L100.0100 ####[facility] [address] [place], [address] CO2 [Moles/Vol] 20.0 mmol/L Low 21.0-32.0 [facility] Comment on above: Performed By: #### L 500.2500, L100.0100 ####[facility] [address] [place], [address] Creatinine [Mass/Vol] 0.88 mg/dL Normal 0.55-1.02 [facility] Comment on above: Result Comment: The validity of the calculated GFR GFRAA in patients over70 years has not been determined. Clinical correlation isessential. Performed By: #### L 500.2500, L100.0100 ####[facility] [address] [place], [address] ECRCL 43.30 ml/min Normal [facility] Comment on above: Performed By: #### L 500.2500, L100.0100 ####[facility] [address] [place], [address] EST GFR - AA 79 mL/min Normal >60 [facility] Comment on above: Result Comment: Afri can Trinidadian GFR Calc Performed By: #### L 500.2500, L100.0100 ####[facility] [address] [place], [address] GAP 7 Normal 5-15 [facility] Comment on above: Performed By: #### L 500.2500, L100.0100 ####[facility] [address] [place], [address] GFR/1.73 sq M.predicted among non-blacks MDRD (S/P/Bld) [Vol rate/Area] 65 mL/min/{1.73_m2} Normal >60 [facility] Comment on above: Result Comment: Non- GFR Calc Performed By: #### L 500.2500, L100.0100 ####[facility] [address] [place], [address] Glucose [Mass/Vol] 135 mg/dL High 74-106 [facility] Comment on above: Result Comment: Fast ing Glucose result greater than or equal to 126 mg/dLsuggests DIABETES MELLITUS per A.D.A. criteria. Performed By: #### L 500.2500, L100.0100 ####[facility] [address] [place], [address] Potassium [Moles/Vol] 4.2 mmol/L Normal 3.5-5.1 [facility] Comment on above: Performed By: #### L 500.2500, L100.0100 ####[facility] [address] [place], [address] Sodium [Moles/Vol] 136 mmol/L Normal 136-145 [facility] Comment on above: Performed By: #### L 500.2500, L100.0100 ####[facility] [address] [place], [address] Urea nitrogen [Mass/Vol] 41 mg/dL High 7-18 [facility] Comment on above: Performed By: #### L 500.2500, L100.0100 ####[facility] [address] [place], [address] Bedside Glucoseon 03-27-2024 FINGERSTICK GLU 122 mg/dL High 74-106 [facility] Comment on above: Result Comment: LEVI GEMENT OF PATIENT CARE PER NURSING PROTOCOL Performed By: #### L 501.080 ####[facility] [address] [place], [address] CBC W/Diff, Automatedon 11-2 -2023 Absolute Lymph 1.35 X10 3/uL Normal 0.83-4.51 [facility] Comment on above: Performed By: #### L 500.2500, L100.0100 ####[facility] [address] [place], [address] Absolute Neut 4.3 X10 3/uL Normal 2.0-7.7 [facility] Comment on above: Performed By: #### L 500.2500, L100.0100 ####[facility] [address] [place], [address] Basophils/100 WBC (Bld) 0.6 % Normal 0-1 [facility] Comment on above: Performed By: #### L 500.2500, L100.0100 ####[facility] [address] [place], [address] Eosinophils/100 WBC (Bld) 1.8 % Normal 0-5 [facility] Comment on above: Performed By: #### L 500.2500, L100.0100 ####[facility] [address] [place], [address] Erythrocyte distribution width (RBC) [Ratio] 18.0 % High 11.6-14.6 [facility] Comment on above: Performed By: #### L 500.2500, L100.0100 ####[facility] [address] [place], [address] Hematocrit (Bld) [Volume fraction] 25.2 % Low 37-47 [facility] Comment on above: Performed By: #### L 500.2500, L100.0100 ####[facility] [address], [address] Hemoglobin (Bld) [Mass/Vol] 7.8 g/dL Low 12.0-15.0 [facility] Comment on above: Performed By: #### L 500.2500, L100.0100 ####[facility] [address] [place], [address] IG% 0.500 Normal 0.0-0.9 [facility] Comment on above: Result Comment: IG% - Immature Granulocytes (promyelocytes, myelocytes andmetamyelocytes) > 1% indicates that a LEFT SHIFT is Present. Performed By: #### L 500.2500, L100.0100 ####[facility] [address] [place], [address] Lymphocytes/100 WBC (Bld) 20.7 % Normal 19-41 [facility] Comment on above: Performed By: #### L 500.2500, L100.0100 ####[facility] [address] [place], [address] MCH (RBC) [Entitic mass] 29.7 pg Normal 27.0-32.0 [facility] Comment on above: Performed By: #### L 500.2500, L100.0100 ####[facility] [address] [place], [address] MCHC (RBC) [Mass/Vol] 31.0 g/dL Low 32-36 [facility] Comment on above: Performed By: #### L 500.2500, L100.0100 ####[facility] [address] [place], [address] MCV (RBC) [Entitic vol] 95.8 fL Normal 81-[address] [facility] Comment on above: Performed By: #### L 500.2500, L100.0100 ####[facility] [address] [place], [address] Monocytes/100 WBC (Bld) 10.1 % High 0-10 [facility] Comment on above: Performed By: #### L 500.2500, L100.0100 ####[facility] [address] [place], [address] Neutrophils/100 WBC (Bld) 66.3 % Normal 47-70 [facility] Comment on above: Performed By: #### L 500.2500, L100.0100 ####[facility] [address] [place], [address] Nucleated RBC (Bld) [#/Vol] 0.8 10*3/uL Normal 0-5 [facility] Comment on above: Performed By: #### L 500.2500, L100.0100 ####[facility] [address], [address] Platelet mean volume (Bld) [Entitic vol] 9.3 fL Normal 6.2-12.0 [facility] Comment on above: Performed By: #### L 500.2500, L100.0100 ####[facility] [address] [place], [address] Platelets (Bld) [#/Vol] 439 10*3/uL Normal 150-450 [facility] Comment on above: Performed By: #### L 500.2500, L100.0100 ####[facility] [address] [place], [address] RBC (Bld) [#/Vol] 2.63 10*6/uL Low 4.2-5.4 [facility] Comment on above: Performed By: #### L 500.2500, L100.0100 ####[facility] [address] [place], [address] RDW SD 61.6 fl High 35.1-43.9 [facility] Comment on above: Performed By: #### L 500.2500, L100.0100 ####[facility] [address] [place], [address] WBC (Bld) [#/Vol] 6.5 10*3/uL Normal 4.4-11.0 [facility] Comment on above: Performed By: #### L 500.2500, L100.0100 ####[facility] [address] [place], [address] Type AND Screenon 03-27-2024 ABO and Rh group Nom (Bld) Blood group A Rh(D) positive Normal [facility] Comment on above: Order Comment: CMV N EG? NNumber of units to transfuse: 2Comments: right transmetatarsal amputationReason for Ordering Blood: AcuteAre the blood/blood products to be transfused? YIs the patient having/had surgery? YNWhen [id number] Performed By: #### B TS, BRC ####[facility] [address] [place], [address] Basic Metabolic Profile (BMP )on 03-26-2024 BUN Normal 7-18 [facility] Comment on above: Result Comment: Canc elled via OM: Order cancelled - Patient discharged Performed By: #### L 500.2500, L100.0100 ####[facility] [address] [place], [address] BUN/CRE Normal 10-20 [facility] Comment on above: Result Comment: Canc elled via OM: Order cancelled - Patient discharged Performed By: #### L 500.2500, L100.0100 ####[facility] [address] [place], [address] CA,Total Normal 8.5-10.1 [facility] Comment on above: Result Comment: Canc elled via OM: Order cancelled - Patient discharged Performed By: #### L 500.2500, L100.0100 ####[facility] [address] [place], [address] CL Normal 98-107 [facility] Comment on above: Result Comment: Canc elled via OM: Order cancelled - Patient discharged Performed By: #### L 500.2500, L100.0100 ####[facility] [address] [place], [address] CO2 Normal 21.0-32.0 [facility] Comment on above: Result Comment: Canc elled via OM: Order cancelled - Patient discharged Performed By: #### L 500.2500, L100.0100 ####[facility] [address] [place], [address] CREAT,SERUM Normal 0.55-1.02 [facility] Comment on above: Result Comment: Canc elled via OM: Order cancelled - Patient discharged Performed By: #### L 500.2500, L100.0100 ####[facility] [address] [place], [address] EST GFR Normal >60 [facility] Comment on above: Result Comment: Canc elled via OM: Order cancelled - Patient discharged Performed By: #### L 500.2500, L100.0100 ####[facility] [address] [place], [address] EST GFR - AA Normal >60 [facility] Comment on above: Result Comment: Canc elled via OM: Order cancelled - Patient discharged Performed By: #### L 500.2500, L100.0100 ####[facility] [address] [place], [address] GAP Normal 5-15 [facility] Comment on above: Result Comment: Canc elled via OM: Order cancelled - Patient discharged Performed By: #### L 500.2500, L100.0100 ####[facility] [address] [place], [address] GLU Normal 74-106 [facility] Comment on above: Result Comment: Canc elled via OM: Order cancelled - Patient discharged Performed By: #### L 500.2500, L100.0100 ####[facility] [address] [place], [address] Potassium Normal 3.5-5.1 [facility] Comment on above: Result Comment: Canc elled via OM: Order cancelled - Patient discharged Performed By: #### L 500.2500, L100.0100 ####[facility] [address] [place], [address] Basic Metabolic Profile (BMP) Normal 136-145 [facility] Comment on above: Result Comment: Canc elled via OM: Order cancelled - Patient discharged Performed By: #### L 500.2500, L100.0100 ####[facility] [address] [place], [address] Bedside Glucoseon 03-26-2024 FINGERSTICK GLU 123 mg/dL High 74-106 [facility] Comment on above: Result Comment: LEVI HYDE OF PATIENT CARE PER NURSING PROTOCOL Performed By: #### L 501.080 ####[facility] [address] [place], [address] CBC W/Diff, Automatedon 03-03 Absolute Neut Normal 2.0-7.7 [facility] Comment on above: Result Comment: Canc elled via OM: Order cancelled - Patient discharged Performed By: #### L 500.2500, L100.0100 ####[facility] [address] [place], [address] HCT Normal 37-47 [facility] Comment on above: Result Comment: Canc elled via OM: Order cancelled - Patient discharged Performed By: #### L 500.2500, L100.0100 ####[facility] [address] [place], [address] HGB Normal 12.0-15.0 [facility] Comment on above: Result Comment: Canc elled via OM: Order cancelled - Patient discharged Performed By: #### L 500.2500, L100.0100 ####[facility] [address] [place], [address] MCH Normal 27.0-32.0 [facility] Comment on above: Result Comment: Canc elled via OM: Order cancelled - Patient discharged Performed By: #### L 500.2500, L100.0100 ####[facility] [address] [place], [address] MCHC Normal 32-36 [facility] Comment on above: Result Comment: Canc elled via OM: Order cancelled - Patient discharged Performed By: #### L 500.2500, L100.0100 ####[facility] [address] [place], [address] MCV Normal 81-99 [facility] Comment on above: Result Comment: Canc elled via OM: Order cancelled - Patient discharged Performed By: #### L 500.2500, L100.0100 ####[facility] [address] [place], [address] NEUT% Normal 47-70 [facility] Comment on above: Result Comment: Canc elled via OM: Order cancelled - Patient discharged Performed By: #### L 500.2500, L100.0100 ####[facility] [address] [place], [address] PLT Normal 150-450 [facility] Comment on above: Result Comment: Canc elled via OM: Order cancelled - Patient discharged Performed By: #### L 500.2500, L100.0100 ####[facility] [address] [place], [address] RBC Normal 4.2-5.4 [facility] Comment on above: Result Comment: Canc elled via OM: Order cancelled - Patient discharged Performed By: #### L 500.2500, L100.0100 ####[facility] [address] [place], [address] RDW CV Normal 11.6-14.6 [facility] Comment on above: Result Comment: Canc elled via OM: Order cancelled - Patient discharged Performed By: #### L 500.2500, L100.0100 ####[facility] [address] [place], [address] RDW SD Normal 35.1-43.9 [facility] Comment on above: Result Comment: Canc elled via OM: Order cancelled - Patient discharged Performed By: #### L 500.2500, L100.0100 ####[facility] [address] [place], [address] WBC Normal 4.4-11.0 [facility] Comment on above: Result Comment: Canc elled via OM: Order cancelled - Patient discharged Performed By: #### L 500.2500, L100.0100 ####[facility] [address] [place], [address] Prothrombin Time w/INRon INR Coag (PPP) [Relative time] 3.0 {INR} Normal [facility] Comment on above: Performed By: #### L 300.3900 ####[facility] [address] [place], [address] PT Coag (PPP) [Time] 30.6 s High 11.7-14.9 [facility] Comment on above: Performed By: #### L 300.3900 ####[facility] [address] [place], [address] Basic Metabolic Profile (BMP )on 03-25-2024 BUN Normal 7-18 [facility] Comment on above: Result Comment: Canc elled via OM: Order cancelled - Patient discharged Performed By: #### L 500.2500, L100.0100 ####[facility] [address] [place], [address] BUN/CRE Normal 10-20 [facility] Comment on above: Result Comment: Canc elled via OM: Order cancelled - Patient discharged Performed By: #### L 500.2500, L100.0100 ####[facility] [address] [place], [address] CA,Total Normal 8.5-10.1 [facility] Comment on above: Result Comment: Canc elled via OM: Order cancelled - Patient discharged Performed By: #### L 500.2500, L100.0100 ####[facility] [address] [place], [address] CL Normal 98-107 [facility] Comment on above: Result Comment: Canc elled via OM: Order cancelled - Patient discharged Performed By: #### L 500.2500, L100.0100 ####[facility] [address] [place], [address] CO2 Normal 21.0-32.0 [facility] Comment on above: Result Comment: Canc elled via OM: Order cancelled - Patient discharged Performed By: #### L 500.2500, L100.0100 ####[facility] [address] [place], [address] CREAT,SERUM Normal 0.55-1.02 [facility] Comment on above: Result Comment: Canc elled via OM: Order cancelled - Patient discharged Performed By: #### L 500.2500, L100.0100 ####[facility] [address] [place], [address] EST GFR Normal >60 [facility] Comment on above: Result Comment: Canc elled via OM: Order cancelled - Patient discharged Performed By: #### L 500.2500, L100.0100 ####[facility] [address] [place], [address] EST GFR - AA Normal >60 [facility] Comment on above: Result Comment: Canc elled via OM: Order cancelled - Patient discharged Performed By: #### L 500.2500, L100.0100 ####[facility] [address] [place], [address] GAP Normal 5-15 [facility] Comment on above: Result Comment: Canc elled via OM: Order cancelled - Patient discharged Performed By: #### L 500.2500, L100.0100 ####[facility] [address] [place], [address] GLU Normal 74-106 [facility] Comment on above: Result Comment: Canc elled via OM: Order cancelled - Patient discharged Performed By: #### L 500.2500, L100.0100 ####[facility] [address] [place], [address] Potassium Normal 3.5-5.1 [facility] Comment on above: Result Comment: Canc elled via OM: Order cancelled - Patient discharged Performed By: #### L 500.2500, L100.0100 ####[facility] [address] [place], [address] Basic Metabolic Profile (BMP) Normal 136-145 [facility] Comment on above: Result Comment: Canc elled via OM: Order cancelled - Patient discharged Performed By: #### L 500.2500, L100.0100 ####[facility] [address] [place], [address] Bedside Glucoseon 03-25-2024 FINGERSTICK GLU 139 mg/dL High 74-106 [facility] Comment on above: Result Comment: LEVI GEMENT OF PATIENT CARE PER NURSING PROTOCOL Performed By: #### L 501.080 ####[facility] [address] [place], [address] CBC W/Diff, Automatedon 11-2 Absolute Neut Normal 2.0-7.7 [facility] Comment on above: Result Comment: Canc elled via OM: Order cancelled - Patient discharged Performed By: #### L 500.2500, L100.0100 ####[facility] [address] [place], [address] HCT Normal 37-47 [facility] Comment on above: Result Comment: Canc elled via OM: Order cancelled - Patient discharged Performed By: #### L 500.2500, L100.0100 ####[facility] [address] [place], [address] HGB Normal 12.0-15.0 [facility] Comment on above: Result Comment: Canc elled via OM: Order cancelled - Patient discharged Performed By: #### L 500.2500, L100.0100 ####[facility] [address] [place], [address] MCH Normal 27.0-32.0 [facility] Comment on above: Result Comment: Canc elled via OM: Order cancelled - Patient discharged Performed By: #### L 500.2500, L100.0100 ####[facility] [address] [place], [address] MCHC Normal 32-36 [facility] Comment on above: Result Comment: Canc elled via OM: Order cancelled - Patient discharged Performed By: #### L 500.2500, L100.0100 ####[facility] [address] [place], [address] MCV Normal 81-99 [facility] Comment on above: Result Comment: Canc elled via OM: Order cancelled - Patient discharged Performed By: #### L 500.2500, L100.0100 ####[facility] [address] [place], [address] NEUT% Normal 47-70 [facility] Comment on above: Result Comment: Canc elled via OM: Order cancelled - Patient discharged Performed By: #### L 500.2500, L100.0100 ####[facility] [address] [place], [address] PLT Normal 150-450 [facility] Comment on above: Result Comment: Canc elled via OM: Order cancelled - Patient discharged Performed By: #### L 500.2500, L100.0100 ####[facility] [address] [place], [address] RBC Normal 4.2-5.4 [facility] Comment on above: Result Comment: Canc elled via OM: Order cancelled - Patient discharged Performed By: #### L 500.2500, L100.0100 ####[facility] [address] [place], [address] RDW CV Normal 11.6-14.6 [facility] Comment on above: Result Comment: Canc elled via OM: Order cancelled - Patient discharged Performed By: #### L 500.2500, L100.0100 ####[facility] [address] [place], [address] RDW SD Normal 35.1-43.9 [facility] Comment on above: Result Comment: Canc elled via OM: Order cancelled - Patient discharged Performed By: #### L 500.2500, L100.0100 ####[facility] [address] [place], [address] WBC Normal 4.4-11.0 [facility] Comment on above: Result Comment: Canc elled via OM: Order cancelled - Patient discharged Performed By: #### L 500.2500, L100.0100 ####[facility] [address] [place], [address] Basic Metabolic Profile (BMP )on 03-24-2024 BUN Normal 7-18 [facility] Comment on above: Result Comment: Canc elled via OM: Order cancelled - Patient discharged Performed By: #### L 500.2500, L100.0100 ####[facility] [address] [place], [address] BUN/CRE Normal 10-20 [facility] Comment on above: Result Comment: Canc elled via OM: Order cancelled - Patient discharged Performed By: #### L 500.2500, L100.0100 ####[facility] [address] [place], [address] CA,Total Normal 8.5-10.1 [facility] Comment on above: Result Comment: Canc elled via OM: Order cancelled - Patient discharged Performed By: #### L 500.2500, L100.0100 ####[facility] [address] [place], [address] CL Normal 98-107 [facility] Comment on above: Result Comment: Canc elled via OM: Order cancelled - Patient discharged Performed By: #### L 500.2500, L100.0100 ####[facility] [address] [place], [address] CO2 Normal 21.0-32.0 [facility] Comment on above: Result Comment: Canc elled via OM: Order cancelled - Patient discharged Performed By: #### L 500.2500, L100.0100 ####[facility] [address] [place], [address] CREAT,SERUM Normal 0.55-1.02 [facility] Comment on above: Result Comment: Canc elled via OM: Order cancelled - Patient discharged Performed By: #### L 500.2500, L100.0100 ####[facility] [address] [place], [address] EST GFR Normal >60 [facility] Comment on above: Result Comment: Canc elled via OM: Order cancelled - Patient discharged Performed By: #### L 500.2500, L100.0100 ####[facility] [address] [place], [address] EST GFR - AA Normal >60 [facility] Comment on above: Result Comment: Canc elled via OM: Order cancelled - Patient discharged Performed By: #### L 500.2500, L100.0100 ####[facility] [address] [place], [address] GAP Normal 5-15 [facility] Comment on above: Result Comment: Canc elled via OM: Order cancelled - Patient discharged Performed By: #### L 500.2500, L100.0100 ####[facility] [address] [place], [address] GLU Normal 74-106 [facility] Comment on above: Result Comment: Canc elled via OM: Order cancelled - Patient discharged Performed By: #### L 500.2500, L100.0100 ####[facility] [address] [place], [address] Potassium Normal 3.5-5.1 [facility] Comment on above: Result Comment: Canc elled via OM: Order cancelled - Patient discharged Performed By: #### L 500.2500, L100.0100 ####[facility] [address] [place], [address] Basic Metabolic Profile (BMP) Normal 136-145 [facility] Comment on above: Result Comment: Canc elled via OM: Order cancelled - Patient discharged Performed By: #### L 500.2500, L100.0100 ####[facility] [address] [place], [address] Bedside Glucoseon 03-24-2024 FINGERSTICK GLU 120 mg/dL High 74-106 [facility] Comment on above: Result Comment: LEVI HYDE OF PATIENT CARE PER NURSING PROTOCOL Performed By: #### L 501.080 ####[facility] [address] [place], [address] CBC W/Diff, Automatedon 11-2 Absolute Neut Normal 2.0-7.7 [facility] Comment on above: Result Comment: Canc elled via OM: Order cancelled - Patient discharged Performed By: #### L 500.2500, L100.0100 ####[facility] [address] [place], [address] HCT Normal 37-47 [facility] Comment on above: Result Comment: Canc elled via OM: Order cancelled - Patient discharged Performed By: #### L 500.2500, L100.0100 ####[facility] [address] [place], [address] HGB Normal 12.0-15.0 [facility] Comment on above: Result Comment: Canc elled via OM: Order cancelled - Patient discharged Performed By: #### L 500.2500, L100.0100 ####[facility] [address] [place], [address] MCH Normal 27.0-32.0 [facility] Comment on above: Result Comment: Canc elled via OM: Order cancelled - Patient discharged Performed By: #### L 500.2500, L100.0100 ####[facility] [address] [place], [address] MCHC Normal 32-36 [facility] Comment on above: Result Comment: Canc elled via OM: Order cancelled - Patient discharged Performed By: #### L 500.2500, L100.0100 ####[facility] [address] [place], [address] MCV Normal 81-99 [facility] Comment on above: Result Comment: Canc elled via OM: Order cancelled - Patient discharged Performed By: #### L 500.2500, L100.0100 ####[facility] [address] [place], [address] NEUT% Normal 47-70 [facility] Comment on above: Result Comment: Canc elled via OM: Order cancelled - Patient discharged Performed By: #### L 500.2500, L100.0100 ####[facility] [address] [place], [address] PLT Normal 150-450 [facility] Comment on above: Result Comment: Canc elled via OM: Order cancelled - Patient discharged Performed By: #### L 500.2500, L100.0100 ####[facility] [address] [place], [address] RBC Normal 4.2-5.4 [facility] Comment on above: Result Comment: Canc elled via OM: Order cancelled - Patient discharged Performed By: #### L 500.2500, L100.0100 ####[facility] [address] [place], [address] RDW CV Normal 11.6-14.6 [facility] Comment on above: Result Comment: Canc elled via OM: Order cancelled - Patient discharged Performed By: #### L 500.2500, L100.0100 ####[facility] [address] [place], [address] RDW SD Normal 35.1-43.9 [facility] Comment on above: Result Comment: Canc elled via OM: Order cancelled - Patient discharged Performed By: #### L 500.2500, L100.0100 ####[facility] [address] [place], [address] WBC Normal 4.4-11.0 [facility] Comment on above: Result Comment: Canc elled via OM: Order cancelled - Patient discharged Performed By: #### L 500.2500, L100.0100 ####[facility] [address] [place], [address] Basic Metabolic Profile (BMP )on 03-23-2024 BUN/CRE 33.5 RATIO High 10-20 [facility] Comment on above: Performed By: #### L 500.2500 ####[facility] [address] [place], [address] CA,Total 8.6 mg/dL Normal 8.5-10.1 [facility] Comment on above: Performed By: #### L 500.2500 ####[facility] [address] [place], [address] Chloride [Moles/Vol] 111 mmol/L High 98-107 [facility] Comment on above: Performed By: #### L 500.2500 ####[facility] [address] [place], [address] CO2 [Moles/Vol] 22.0 mmol/L Normal 21.0-32.0 [facility] Comment on above: Performed By: #### L 500.2500 ####[facility] [address] [place], [address] Creatinine [Mass/Vol] 0.87 mg/dL Normal 0.55-1.02 [facility] Comment on above: Result Comment: The validity of the calculated GFR GFRAA in patients over70 years has not been determined. Clinical correlation isessential. Performed By: #### L 500.2500 ####[facility] [address] [place], [address] ECRCL 43.83 ml/min Normal [facility] Comment on above: Performed By: #### L 500.2500 ####[facility] [address] [place], [address] EST GFR - AA 80 mL/min Normal >60 [facility] Comment on above: Result Comment: Afri can Trinidadian GFR Calc Performed By: #### L 500.2500 ####[facility] [address] [place], [address] GAP 4 Low 5-15 [facility] Comment on above: Performed By: #### L 500.2500 ####[facility] [address] [place], [address] GFR/1.73 sq M.predicted among non-blacks MDRD (S/P/Bld) [Vol rate/Area] 66 mL/min/{1.73_m2} Normal >60 [facility] Comment on above: Result Comment: Non- GFR Calc Performed By: #### L 500.2500 ####[facility] [address] [place], [address] Glucose [Mass/Vol] 136 mg/dL High 74-106 [facility] Comment on above: Result Comment: Fast ing Glucose result greater than or equal to 126 mg/dLsuggests DIABETES MELLITUS per A.D.A. criteria. Performed By: #### L 500.2500 ####[facility] [address] [place], [address] Potassium [Moles/Vol] 4.1 mmol/L Normal 3.5-5.1 [facility] Comment on above: Performed By: #### L 500.2500 ####[facility] [address] [place], [address] Sodium [Moles/Vol] 138 mmol/L Normal 136-145 [facility] Comment on above: Performed By: #### L 500.2500 ####[facility] [address] [place], [address] Urea nitrogen [Mass/Vol] 29 mg/dL High 7-18 [facility] Comment on above: Performed By: #### L 500.2500 ####[facility] [address] [place], [address] BUN Normal 7-18 [facility] Comment on above: Result Comment: Canc elled via OM: Order cancelled - Patient discharged Performed By: #### L 500.2500, L100.0100 ####[facility] [address] [place], [address] BUN/CRE Normal 10-20 [facility] Comment on above: Result Comment: Canc elled via OM: Order cancelled - Patient discharged Performed By: #### L 500.2500, L100.0100 ####[facility] [address] [place], [address] CA,Total Normal 8.5-10.1 [facility] Comment on above: Result Comment: Canc elled via OM: Order cancelled - Patient discharged Performed By: #### L 500.2500, L100.0100 ####[facility] [address] [place], [address] CL Normal 98-107 [facility] Comment on above: Result Comment: Canc elled via OM: Order cancelled - Patient discharged Performed By: #### L 500.2500, L100.0100 ####[facility] [address] [place], [address] CO2 Normal 21.0-32.0 [facility] Comment on above: Result Comment: Canc elled via OM: Order cancelled - Patient discharged Performed By: #### L 500.2500, L100.0100 ####[facility] [address] [place], [address] CREAT,SERUM Normal 0.55-1.02 [facility] Comment on above: Result Comment: Canc elled via OM: Order cancelled - Patient discharged Performed By: #### L 500.2500, L100.0100 ####[facility] [address] [place], [address] EST GFR Normal >60 [facility] Comment on above: Result Comment: Canc elled via OM: Order cancelled - Patient discharged Performed By: #### L 500.2500, L100.0100 ####[facility] [address] [place], [address] EST GFR - AA Normal >60 [facility] Comment on above: Result Comment: Canc elled via OM: Order cancelled - Patient discharged Performed By: #### L 500.2500, L100.0100 ####[facility] [address] [place], [address] GAP Normal 5-15 [facility] Comment on above: Result Comment: Canc elled via OM: Order cancelled - Patient discharged Performed By: #### L 500.2500, L100.0100 ####[facility] [address] [place], [address] GLU Normal 74-106 [facility] Comment on above: Result Comment: Canc elled via OM: Order cancelled - Patient discharged Performed By: #### L 500.2500, L100.0100 ####[facility] [address] [place], [address] Potassium Normal 3.5-5.1 [facility] Comment on above: Result Comment: Canc elled via OM: Order cancelled - Patient discharged Performed By: #### L 500.2500, L100.0100 ####[facility] [address] [place], [address] Basic Metabolic Profile (BMP) Normal 136-145 [facility] Comment on above: Result Comment: Canc elled via OM: Order cancelled - Patient discharged Performed By: #### L 500.2500, L100.0100 ####[facility] [address] [place], [address] Bedside Glucoseon 03-23-2024 FINGER[facility]ICK GLU 155 mg/dL High 74-106 [facility] Comment on above: Result Comment: LEVI GEMENT OF PATIENT CARE PER NURSING PROTOCOL Performed By: #### L 501.080 ####[facility] [address] [place], [address] CBC W/Diff, Automatedon 03-03 Absolute Neut Normal 2.0-7.7 [facility] Comment on above: Result Comment: Canc elled via OM: Order cancelled - Patient discharged Performed By: #### L 500.2500, L100.0100 ####[facility] [address] [place], [address] HCT Normal 37-47 [facility] Comment on above: Result Comment: Canc elled via OM: Order cancelled - Patient discharged Performed By: #### L 500.2500, L100.0100 ####[facility] [address] [place], [address] HGB Normal 12.0-15.0 [facility] Comment on above: Result Comment: Canc elled via OM: Order cancelled - Patient discharged Performed By: #### L 500.2500, L100.0100 ####[facility] [address] [place], [address] MCH Normal 27.0-32.0 [facility] Comment on above: Result Comment: Canc elled via OM: Order cancelled - Patient discharged Performed By: #### L 500.2500, L100.0100 ####[facility] [address] [place], [address] MCHC Normal 32-36 [facility] Comment on above: Result Comment: Canc elled via OM: Order cancelled - Patient discharged Performed By: #### L 500.2500, L100.0100 ####[facility] [address] [place], [address] MCV Normal 81-99 [facility] Comment on above: Result Comment: Canc elled via OM: Order cancelled - Patient discharged Performed By: #### L 500.2500, L100.0100 ####[facility] [address] [place], [address] NEUT% Normal 47-70 [facility] Comment on above: Result Comment: Canc elled via OM: Order cancelled - Patient discharged Performed By: #### L 500.2500, L100.0100 ####[facility] [address] [place], [address] PLT Normal 150-450 [facility] Comment on above: Result Comment: Canc elled via OM: Order cancelled - Patient discharged Performed By: #### L 500.2500, L100.0100 ####[facility] [address] [place], [address] RBC Normal 4.2-5.4 [facility] Comment on above: Result Comment: Canc elled via OM: Order cancelled - Patient discharged Performed By: #### L 500.2500, L100.0100 ####[facility] [address] [place], [address] RDW CV Normal 11.6-14.6 [facility] Comment on above: Result Comment: Canc elled via OM: Order cancelled - Patient discharged Performed By: #### L 500.2500, L100.0100 ####[facility] [address] [place], [address] RDW SD Normal 35.1-43.9 [facility] Comment on above: Result Comment: Canc elled via OM: Order cancelled - Patient discharged Performed By: #### L 500.2500, L100.0100 ####[facility] [address] [place], [address] WBC Normal 4.4-11.0 [facility] Comment on above: Result Comment: Canc elled via OM: Order cancelled - Patient discharged Performed By: #### L 500.2500, L100.0100 ####[facility] [address] [place], [address] COVID 19 AG RAPID (XOCHILT Vaughn)on 03-23-2024 SARS-CoV-2 (COVID-19) RNA MARCOS+probe Ql (Unsp spec) Normal [facility] Comment on above: Performed By: #### M 100.505 ####[facility] [address] [place], [address] Consultation - Surgicalon Consultation - Surgical Normal [facility] SARS-CoV-2 (COVID-19) Ag IA. rapid Ql (Resp)Ordered By: Jason Smith on 03-23-2024 SARS-CoV-2 Antigen (Rapid) [facility] Basic Metabolic Profile (BMP )on 03-22-2024 BUN Normal 7-18 [facility] Comment on above: Result Comment: Canc elled via OM: Order cancelled - Patient discharged Performed By: #### L 100.0100, L500.2500 ####[facility] [address] [place], [address] BUN/CRE Normal 10-20 [facility] Comment on above: Result Comment: Canc elled via OM: Order cancelled - Patient discharged Performed By: #### L 100.0100, L500.2500 ####[facility] [address] [place], [address] CA,Total Normal 8.5-10.1 [facility] Comment on above: Result Comment: Canc elled via OM: Order cancelled - Patient discharged Performed By: #### L 100.0100, L500.2500 ####[facility] [address] [place], [address] CL Normal 98-107 [facility] Comment on above: Result Comment: Canc elled via OM: Order cancelled - Patient discharged Performed By: #### L 100.0100, L500.2500 ####[facility] [address] [place], [address] CO2 Normal 21.0-32.0 [facility] Comment on above: Result Comment: Canc elled via OM: Order cancelled - Patient discharged Performed By: #### L 100.0100, L500.2500 ####[facility] [address] [place], [address] CREAT,SERUM Normal 0.55-1.02 [facility] Comment on above: Result Comment: Canc elled via OM: Order cancelled - Patient discharged Performed By: #### L 100.0100, L500.2500 ####[facility] [address] [place], [address] EST GFR Normal >60 [facility] Comment on above: Result Comment: Canc elled via OM: Order cancelled - Patient discharged Performed By: #### L 100.0100, L500.2500 ####[facility] [address] [place], [address] EST GFR - AA Normal >60 [facility] Comment on above: Result Comment: Canc elled via OM: Order cancelled - Patient discharged Performed By: #### L 100.0100, L500.2500 ####[facility] [address] [place], [address] GAP Normal 5-15 [facility] Comment on above: Result Comment: Canc elled via OM: Order cancelled - Patient discharged Performed By: #### L 100.0100, L500.2500 ####[facility] [address] [place], [address] GLU Normal 74-106 [facility] Comment on above: Result Comment: Canc elled via OM: Order cancelled - Patient discharged Performed By: #### L 100.0100, L500.2500 ####[facility] [address] [place], [address] Potassium Normal 3.5-5.1 [facility] Comment on above: Result Comment: Canc elled via OM: Order cancelled - Patient discharged Performed By: #### L 100.0100, L500.2500 ####[facility] [address] [place], [address] Basic Metabolic Profile (BMP) Normal 136-145 [facility] Comment on above: Result Comment: Canc elled via OM: Order cancelled - Patient discharged Performed By: #### L 100.0100, L500.2500 ####[facility] [address] [place], [address] Bedside Glucoseon 03-22-2024 FINGERSTICK GLU 130 mg/dL High 74-106 [facility] Comment on above: Result Comment: LEVI HYDE OF PATIENT CARE PER NURSING PROTOCOL Performed By: #### L 501.080 ####[facility] [address] [place], [address] CBC W/Diff, Automatedon 03-03 Absolute Neut Normal 2.0-7.7 [facility] Comment on above: Result Comment: Canc elled via OM: Order cancelled - Patient discharged Performed By: #### L 100.0100, L500.2500 ####[facility] [address] [place], [address] HCT Normal 37-47 [facility] Comment on above: Result Comment: Canc elled via OM: Order cancelled - Patient discharged Performed By: #### L 100.0100, L500.2500 ####[facility] [address] [place], [address] HGB Normal 12.0-15.0 [facility] Comment on above: Result Comment: Canc elled via OM: Order cancelled - Patient discharged Performed By: #### L 100.0100, L500.2500 ####[facility] [address] [place], [address] MCH Normal 27.0-32.0 [facility] Comment on above: Result Comment: Canc elled via OM: Order cancelled - Patient discharged Performed By: #### L 100.0100, L500.2500 ####[facility] [address] [place], [address] MCHC Normal 32-36 [facility] Comment on above: Result Comment: Canc elled via OM: Order cancelled - Patient discharged Performed By: #### L 100.0100, L500.2500 ####[facility] [address] [place], [address] MCV Normal 81-99 [facility] Comment on above: Result Comment: Canc elled via OM: Order cancelled - Patient discharged Performed By: #### L 100.0100, L500.2500 ####[facility] [address] [place], [address] NEUT% Normal 47-70 [facility] Comment on above: Result Comment: Canc elled via OM: Order cancelled - Patient discharged Performed By: #### L 100.0100, L500.2500 ####[facility] [address] [place], [address] PLT Normal 150-450 [facility] Comment on above: Result Comment: Canc elled via OM: Order cancelled - Patient discharged Performed By: #### L 100.0100, L500.2500 ####[facility] [address] [place], [address] RBC Normal 4.2-5.4 [facility] Comment on above: Result Comment: Canc elled via OM: Order cancelled - Patient discharged Performed By: #### L 100.0100, L500.2500 ####[facility] [address] [place], [address] RDW CV Normal 11.6-14.6 [facility] Comment on above: Result Comment: Canc elled via OM: Order cancelled - Patient discharged Performed By: #### L 100.0100, L500.2500 ####[facility] [address] [place], [address] RDW SD Normal 35.1-43.9 [facility] Comment on above: Result Comment: Canc elled via OM: Order cancelled - Patient discharged Performed By: #### L 100.0100, L500.2500 ####[facility] [address] [place], [address] WBC Normal 4.4-11.0 [facility] Comment on above: Result Comment: Canfroilan elled via OM: Order cancelled - Patient discharged Performed By: #### L 100.0100, L500.2500 ####[facility] [address] [place], [address] Prothrombin Time w/INRon INR Coag (PPP) [Relative time] 2.5 {INR} Normal [facility] Comment on above: Performed By: #### L 300.3900 ####[facility] [address] [place], [address] PT Coag (PPP) [Time] 27.1 s High 11.7-14.9 [facility] Comment on above: Performed By: #### L 300.3900 ####[facility] [address] [place], [address] Basic Metabolic Profile (BMP )on 03-21-2024 BUN/CRE 23.3 RATIO High 02-18 [facility] Comment on above: Performed By: #### L 500.2500 ####[facility] [address] [place], [address] CA,Total 8.9 mg/dL Normal 8.5-10.1 [facility] Comment on above: Performed By: #### L 500.2500 ####[facility] [address] [place], [address] Chloride [Moles/Vol] 110 mmol/L High 98-107 [facility] Comment on above: Performed By: #### L 500.2500 ####[facility] [address] [place], [address] CO2 [Moles/Vol] 24.0 mmol/L Normal 21.0-32.0 [facility] Comment on above: Performed By: #### L 500.2500 ####[facility] [address] [place], [address] Creatinine [Mass/Vol] 0.73 mg/dL Normal 0.55-1.02 [facility] Comment on above: Result Comment: The validity of the calculated GFR GFRAA in patients over70 years has not been determined. Clinical correlation isessential. Performed By: #### L 500.2500 ####[facility] [address] [place], [address] ECRCL 47.11 ml/min Normal [facility] Comment on above: Performed By: #### L 500.2500 ####[facility] [address] [place], [address] EST GFR - AA 97 mL/min Normal >60 [facility] Comment on above: Result Comment: Afri can Trinid[place] GFR Calc Performed By: #### L 500.2500 ####[facility] [address] [place], [address] GAP 5 Normal 5-15 [facility] Comment on above: Performed By: #### L 500.2500 ####[facility] [address] [place], [address] GFR/1.73 sq M.predicted among non-blacks MDRD (S/P/Bld) [Vol rate/Area] 81 mL/min/{1.73_m2} Normal >60 [facility] Comment on above: Result Comment: Non- GFR Calc Performed By: #### L 500.2500 ####[facility] [address] [place], [address] Glucose [Mass/Vol] 111 mg/dL High 74-106 [facility] Comment on above: Result Comment: Fast ing Glucose result from 100 to 125 mg/dLsuggests IMPAIRED HOMEOSTASIS per A.D.A. criteria. Performed By: #### L 500.2500 ####[facility] [address] [place], [address] Potassium [Moles/Vol] 3.3 mmol/L Low 3.5-5.1 [facility] Comment on above: Performed By: #### L 500.2500 ####[facility] [address] [place], [address] Sodium [Moles/Vol] 140 mmol/L Normal 136-145 [facility] Comment on above: Performed By: #### L 500.2500 ####[facility] [address] [place], [address] Urea nitrogen [Mass/Vol] 17 mg/dL Normal 7-18 [facility] Comment on above: Performed By: #### L 500.2500 ####[facility] [address] [place], [address] BUN Normal 7-18 [facility] Comment on above: Result Comment: Canc elled via OM: Order cancelled - Patient discharged Performed By: #### L 100.0100, L500.2500 ####[facility] [address] [place], [address] BUN/CRE Normal 10-20 [facility] Comment on above: Result Comment: Canc elled via OM: Order cancelled - Patient discharged Performed By: #### L 100.0100, L500.2500 ####[facility] [address] [place], [address] CA,Total Normal 8.5-10.1 [facility] Comment on above: Result Comment: Canc elled via OM: Order cancelled - Patient discharged Performed By: #### L 100.0100, L500.2500 ####[facility] [address] [place], [address] CL Normal 98-107 [facility] Comment on above: Result Comment: Canc elled via OM: Order cancelled - Patient discharged Performed By: #### L 100.0100, L500.2500 ####[facility] [address] [place], [address] CO2 Normal 21.0-32.0 [facility] Comment on above: Result Comment: Canc elled via OM: Order cancelled - Patient discharged Performed By: #### L 100.0100, L500.2500 ####[facility] [address] [place], [address] CREAT,SERUM Normal 0.55-1.02 [facility] Comment on above: Result Comment: Canc elled via OM: Order cancelled - Patient discharged Performed By: #### L 100.0100, L500.2500 ####[facility] [address] [place], [address] EST GFR Normal >60 [facility] Comment on above: Result Comment: Canc elled via OM: Order cancelled - Patient discharged Performed By: #### L 100.0100, L500.2500 ####[facility] [address] [place], [address] EST GFR - AA Normal >60 [facility] Comment on above: Result Comment: Canc elled via OM: Order cancelled - Patient discharged Performed By: #### L 100.0100, L500.2500 ####[facility] [address] [place], [address] GAP Normal 5-15 [facility] Comment on above: Result Comment: Canc elled via OM: Order cancelled - Patient discharged Performed By: #### L 100.0100, L500.2500 ####[facility] [address] [place], [address] GLU Normal 74-106 [facility] Comment on above: Result Comment: Canc elled via OM: Order cancelled - Patient discharged Performed By: #### L 100.0100, L500.2500 ####[facility] [address] [place], [address] Potassium Normal 3.5-5.1 [facility] Comment on above: Result Comment: Canc elled via OM: Order cancelled - Patient discharged Performed By: #### L 100.0100, L500.2500 ####[facility] [address] [place], [address] Basic Metabolic Profile (BMP) Normal 136-145 [facility] Comment on above: Result Comment: Canc elled via OM: Order cancelled - Patient discharged Performed By: #### L 100.0100, L500.2500 ####[facility] [address] [place], [address] Bedside Glucoseon 03-21-2023 FINGERSTICK GLU 108 mg/dL High 74-106 [facility] Comment on above: Result Comment: LEVI GEMENT OF PATIENT CARE PER NURSING PROTOCOL Performed By: #### L 501.080 ####[facility] [address] [place], [address] FINGERSTICK GLU 106 mg/dL Normal 74-106 [facility] Comment on above: Result Comment: LEVI GEMENT OF PATIENT CARE PER NURSING PROTOCOL Performed By: #### L 501.080 ####[facility] [address] [place], [address] FINGERSTICK GLU 117 mg/dL High 74-106 [facility] Comment on above: Result Comment: LEVI GEMENT OF PATIENT CARE PER NURSING PROTOCOL Performed By: #### L 501.080 ####[facility] [address] [place], [address] CBC W/Diff, Automatedon 11-2 Absolute Neut Normal 2.0-7.7 [facility] Comment on above: Result Comment: Canc elled via OM: Order cancelled - Patient discharged Performed By: #### L 100.0100, L500.2500 ####[facility] [address] [place], [address] HCT Normal 37-47 [facility] Comment on above: Result Comment: Canc elled via OM: Order cancelled - Patient discharged Performed By: #### L 100.0100, L500.2500 ####[facility] [address] [place], [address] HGB Normal 12.0-15.0 [facility] Comment on above: Result Comment: Canc elled via OM: Order cancelled - Patient discharged Performed By: #### L 100.0100, L500.2500 ####[facility] [address] [place], [address] MCH Normal 27.0-32.0 [facility] Comment on above: Result Comment: Canc elled via OM: Order cancelled - Patient discharged Performed By: #### L 100.0100, L500.2500 ####[facility] [address] [place], [address] MCHC Normal 32-36 [facility] Comment on above: Result Comment: Canc elled via OM: Order cancelled - Patient discharged Performed By: #### L 100.0100, L500.2500 ####[facility] [address] [place], [address] MCV Normal 81-99 [facility] Comment on above: Result Comment: Canc elled via OM: Order cancelled - Patient discharged Performed By: #### L 100.0100, L500.2500 ####[facility] [address] [place], [address] NEUT% Normal 47-70 [facility] Comment on above: Result Comment: Canc elled via OM: Order cancelled - Patient discharged Performed By: #### L 100.0100, L500.2500 ####[facility] [address] [place], [address] PLT Normal 150-450 [facility] Comment on above: Result Comment: Canc elled via OM: Order cancelled - Patient discharged Performed By: #### L 100.0100, L500.2500 ####[facility] [address] [place], [address] RBC Normal 4.2-5.4 [facility] Comment on above: Result Comment: Canc elled via OM: Order cancelled - Patient discharged Performed By: #### L 100.0100, L500.2500 ####[facility] [address] [place], [address] RDW CV Normal 11.6-14.6 [facility] Comment on above: Result Comment: Canc elled via OM: Order cancelled - Patient discharged Performed By: #### L 100.0100, L500.2500 ####[facility] [address] [place], [address] RDW SD Normal 35.1-43.9 [facility] Comment on above: Result Comment: Canc elled via OM: Order cancelled - Patient discharged Performed By: #### L 100.0100, L500.2500 ####[facility] [address] [place], [address] WBC Normal 4.4-11.0 [facility] Comment on above: Result Comment: Canc elled via OM: Order cancelled - Patient discharged Performed By: #### L 100.0100, L500.2500 ####[facility] [address] [place], [address] Basic Metabolic Profile (BMP )on 03-20-2024 BUN/CRE 21.3 RATIO High 10-20 [facility] Comment on above: Performed By: #### L 500.2500, L100.0100 ####[facility] [address] [place], [address] CA,Total 9.2 mg/dL Normal 8.5-10.1 [facility] Comment on above: Performed By: #### L 500.2500, L100.0100 ####[facility] [address] [place], [address] Chloride [Moles/Vol] 109 mmol/L High 98-107 [facility] Comment on above: Performed By: #### L 500.2500, L100.0100 ####[facility] [address] [place], [address] CO2 [Moles/Vol] 23.0 mmol/L Normal 21.0-32.0 [facility] Comment on above: Performed By: #### L 500.2500, L100.0100 ####[facility] [address] [place], [address] Creatinine [Mass/Vol] 0.70 mg/dL Normal 0.55-1.02 [facility] Comment on above: Result Comment: The validity of the calculated GFR GFRAA in patients over70 years has not been determined. Clinical correlation isessential. Performed By: #### L 500.2500, L100.0100 ####[facility] [address] [place], [address] ECRCL 47.06 ml/min Normal [facility] Comment on above: Performed By: #### L 500.2500, L100.0100 ####[facility] [address] [place], [address] EST GFR - AA 102 mL/min Normal >60 [facility] Comment on above: Result Comment: Afri can Trinidadian GFR Calc Performed By: #### L 500.2500, L100.0100 ####[facility] [address] [place], [address] GAP 6 Normal 5-15 [facility] Comment on above: Performed By: #### L 500.2500, L100.0100 ####[facility] [address] [place], [address] GFR/1.73 sq M.predicted among non-blacks MDRD (S/P/Bld) [Vol rate/Area] 84 mL/min/{1.73_m2} Normal >60 [facility] Comment on above: Result Comment: Non- GFR Calc Performed By: #### L 500.2500, L100.0100 ####[facility] [address] [place], [address] Glucose [Mass/Vol] 136 mg/dL High 74-106 [facility] Comment on above: Result Comment: Fast ing Glucose result greater than or equal to 126 mg/dLsuggests DIABETES MELLITUS per A.D.A. criteria. Performed By: #### L 500.2500, L100.0100 ####[facility] [address] [place], [address] Potassium [Moles/Vol] 3.2 mmol/L Low 3.5-5.1 [facility] Comment on above: Performed By: #### L 500.2500, L100.0100 ####[facility] [address] [place], [address] Sodium [Moles/Vol] 138 mmol/L Normal 136-145 [facility] Comment on above: Performed By: #### L 500.2500, L100.0100 ####[facility] [address] [place], [address] Urea nitrogen [Mass/Vol] 15 mg/dL Normal 7-18 [facility] Comment on above: Performed By: #### L 500.2500, L100.0100 ####[facility] [address] [place], [address] BUN Normal 7-18 [facility] Comment on above: Result Comment: Canc elled via OM: Order cancelled - Patient discharged Performed By: #### L 100.0100, L500.2500 ####[facility] [address] [place], [address] BUN/CRE Normal 10-20 [facility] Comment on above: Result Comment: Canc elled via OM: Order cancelled - Patient discharged Performed By: #### L 100.0100, L500.2500 ####[facility] [address] [place], [address] CA,Total Normal 8.5-10.1 [facility] Comment on above: Result Comment: Canc elled via OM: Order cancelled - Patient discharged Performed By: #### L 100.0100, L500.2500 ####[facility] [address] [place], [address] CL Normal 98-107 [facility] Comment on above: Result Comment: Canc elled via OM: Order cancelled - Patient discharged Performed By: #### L 100.0100, L500.2500 ####[facility] [address] [place], [address] CO2 Normal 21.0-32.0 [facility] Comment on above: Result Comment: Canc elled via OM: Order cancelled - Patient discharged Performed By: #### L 100.0100, L500.2500 ####[facility] [address] [place], [address] CREAT,SERUM Normal 0.55-1.02 [facility] Comment on above: Result Comment: Canc elled via OM: Order cancelled - Patient discharged Performed By: #### L 100.0100, L500.2500 ####[facility] [address] [place], [address] EST GFR Normal >60 [facility] Comment on above: Result Comment: Canc elled via OM: Order cancelled - Patient discharged Performed By: #### L 100.0100, L500.2500 ####[facility] [address] [place], [address] EST GFR - AA Normal >60 [facility] Comment on above: Result Comment: Canc elled via OM: Order cancelled - Patient discharged Performed By: #### L 100.0100, L500.2500 ####[facility] [address] [place], [address] GAP Normal 5-15 [facility] Comment on above: Result Comment: Canc elled via OM: Order cancelled - Patient discharged Performed By: #### L 100.0100, L500.2500 ####[facility] [address] [place], [address] GLU Normal 74-106 [facility] Comment on above: Result Comment: Canc elled via OM: Order cancelled - Patient discharged Performed By: #### L 100.0100, L500.2500 ####[facility] [address] [place], [address] Potassium Normal 3.5-5.1 [facility] Comment on above: Result Comment: Canc elled via OM: Order cancelled - Patient discharged Performed By: #### L 100.0100, L500.2500 ####[facility] [address] [place], [address] Basic Metabolic Profile (BMP) Normal 136-145 [facility] Comment on above: Result Comment: Canc elled via OM: Order cancelled - Patient discharged Performed By: #### L 100.0100, L500.2500 ####[facility] [address] [place], [address] Bedside Glucoseon 03-20-2024 FINGERSTICK GLU 120 mg/dL High 74-106 [facility] Comment on above: Result Comment: LEVI GEMENT OF PATIENT CARE PER NURSING PROTOCOL Performed By: #### L 501.080 ####[facility] [address] [place], [address] FINGERSTICK GLU 79 mg/dL Normal 74-106 [facility] Comment on above: Result Comment: LEVI GEMENT OF PATIENT CARE PER NURSING PROTOCOL Performed By: #### L 501.080 ####[facility] [address] [place], [address] FINGERSTICK GLU 124 mg/dL High 74-106 [facility] Comment on above: Result Comment: LEVI GEMENT OF PATIENT CARE PER NURSING PROTOCOL Performed By: #### L 501.080 ####[facility] [address] [place], [address] FINGERSTICK GLU 152 mg/dL High 74-106 [facility] Comment on above: Result Comment: LEVI GEMENT OF PATIENT CARE PER NURSING PROTOCOL Performed By: #### L 501.080 ####[facility] [address] [place], [address] CBC W/Diff, Automatedon 11-1 Absolute Lymph 1.27 X10 3/uL Normal 0.83-4.51 [facility] Comment on above: Performed By: #### L 500.2500, L100.0100 ####[facility] [address] [place], [address] Absolute Neut 4.1 X10 3/uL Normal 2.0-7.7 [facility] Comment on above: Performed By: #### L 500.2500, L100.0100 ####[facility] [address] [place], [address] Basophils/100 WBC (Bld) 0.8 % Normal 0-1 [facility] Comment on above: Performed By: #### L 500.2500, L100.0100 ####[facility] [address] [place], [address] Eosinophils/100 WBC (Bld) 1.7 % Normal 0-5 [facility] Comment on above: Performed By: #### L 500.2500, L100.0100 ####[facility] [address] [place], [address] Erythrocyte distribution width (RBC) [Ratio] 18.4 % High 11.6-14.6 [facility] Comment on above: Performed By: #### L 500.2500, L100.0100 ####[facility] [address] [place], [address] Hematocrit (Bld) [Volume fraction] 28.6 % Low 37-47 [facility] Comment on above: Performed By: #### L 500.2500, L100.0100 ####[facility] [address] [place], [address] Hemoglobin (Bld) [Mass/Vol] 9.2 g/dL Low 12.0-15.0 [facility] Comment on above: Performed By: #### L 500.2500, L100.0100 ####[facility] [address] [place], [address] IG% 0.500 Normal 0.0-0.9 [facility] Comment on above: Result Comment: IG% - Immature Granulocytes (promyelocytes, myelocytes andmetamyelocytes) > 1% indicates that a LEFT SHIFT is Present. Performed By: #### L 500.2500, L100.0100 ####[facility] [address] [place], [address] Lymphocytes/100 WBC (Bld) 19.9 % Normal 19-41 [facility] Comment on above: Performed By: #### L 500.2500, L100.0100 ####[facility] [address] [place], [address] MCH (RBC) [Entitic mass] 29.7 pg Normal 27.0-32.0 [facility] Comment on above: Performed By: #### L 500.2500, L100.0100 ####[facility] [address] [place], [address] MCHC (RBC) [Mass/Vol] 32.2 g/dL Normal 32-36 [facility] Comment on above: Performed By: #### L 500.2500, L100.0100 ####[facility] [address] [place], [address] MCV (RBC) [Entitic vol] 92.3 fL Normal 81-99 [facility] Comment on above: Performed By: #### L 500.2500, L100.0100 ####[facility] [address] [place], [address] Monocytes/100 WBC (Bld) 12.9 % High 0-10 [facility] Comment on above: Performed By: #### L 500.2500, L100.0100 ####[facility] [address] [place], [address] Neutrophils/100 WBC (Bld) 64.2 % Normal 47-70 [facility] Comment on above: Performed By: #### L 500.2500, L100.0100 ####[facility] [address] [place], [address] Nucleated RBC (Bld) [#/Vol] 0.3 10*3/uL Normal 0-5 [facility] Comment on above: Performed By: #### L 500.2500, L100.0100 ####[facility] [address] [place], [address] Platelet mean volume (Bld) [Entitic vol] 9.5 fL Normal 6.2-12.0 [facility] Comment on above: Performed By: #### L 500.2500, L100.0100 ####[facility] [address] [place], [address] Platelets (Bld) [#/Vol] 338 10*3/uL Normal 150-450 [facility] Comment on above: Performed By: #### L 500.2500, L100.0100 ####[facility] [address] [place], [address] RBC (Bld) [#/Vol] 3.10 10*6/uL Low 4.2-5.4 [facility] Comment on above: Performed By: #### L 500.2500, L100.0100 ####[facility] [address] [place], [address] RDW SD 60.8 fl High 35.1-43.9 [facility] Comment on above: Performed By: #### L 500.2500, L100.0100 ####[facility] [address] [place], [address] WBC (Bld) [#/Vol] 6.4 10*3/uL Normal 4.4-11.0 [facility] Comment on above: Performed By: #### L 500.2500, L100.0100 ####[facility] [address] [place], [address] Absolute Neut Normal 2.0-7.7 [facility] Comment on above: Result Comment: Canc elled via OM: Order cancelled - Patient discharged Performed By: #### L 100.0100, L500.2500 ####[facility] [address] [place], [address] HCT Normal 37-47 [facility] Comment on above: Result Comment: Canc elled via OM: Order cancelled - Patient discharged Performed By: #### L 100.0100, L500.2500 ####[facility] [address] [place], [address] HGB Normal 12.0-15.0 [facility] Comment on above: Result Comment: Canc elled via OM: Order cancelled - Patient discharged Performed By: #### L 100.0100, L500.2500 ####[facility] [address] [place], [address] MCH Normal 27.0-32.0 [facility] Comment on above: Result Comment: Canc elled via OM: Order cancelled - Patient discharged Performed By: #### L 100.0100, L500.2500 ####[facility] [address] [place], [address] MCHC Normal 32-36 [facility] Comment on above: Result Comment: Canc elled via OM: Order cancelled - Patient discharged Performed By: #### L 100.0100, L500.2500 ####[facility] [address] [place], [address] MCV Normal 81-99 [facility] Comment on above: Result Comment: Canc elled via OM: Order cancelled - Patient discharged Performed By: #### L 100.0100, L500.2500 ####[facility] [address] [place], [address] NEUT% Normal 47-70 [facility] Comment on above: Result Comment: Canc elled via OM: Order cancelled - Patient discharged Performed By: #### L 100.0100, L500.2500 ####[facility] [address] [place], [address] PLT Normal 150-450 [facility] Comment on above: Result Comment: Canc elled via OM: Order cancelled - Patient discharged Performed By: #### L 100.0100, L500.2500 ####[facility] [address] [place], [address] RBC Normal 4.2-5.4 [facility] Comment on above: Result Comment: Canc elled via OM: Order cancelled - Patient discharged Performed By: #### L 100.0100, L500.2500 ####[facility] [address] [place], [address] RDW CV Normal 11.6-14.6 [facility] Comment on above: Result Comment: Canc elled via OM: Order cancelled - Patient discharged Performed By: #### L 100.0100, L500.2500 ####[facility] [address] [place], [address] RDW SD Normal 35.1-43.9 [facility] Comment on above: Result Comment: Canc elled via OM: Order cancelled - Patient discharged Performed By: #### L 100.0100, L500.2500 ####[facility] [address] [place], [address] WBC Normal 4.4-11.0 [facility] Comment on above: Result Comment: Canc elled via OM: Order cancelled - Patient discharged Performed By: #### L 100.0100, L500.2500 ####[facility] [address] [place], [address] Prothrombin Time w/INRon INR Normal [facility] Comment on above: Result Comment: Canc elled via OM: Order cancelled - Patient discharged Performed By: #### L 300.3900 ####[facility] [address] [place], [address] PROTIME Normal 11.7-14.9 [facility] Comment on above: Result Comment: Canc elled via OM: Order cancelled - Patient discharged Performed By: #### L 300.3900 ####[facility] [address] [place], [address] Basic Metabolic Profile (BMP )on 03-19-2024 BUN/CRE 31.9 RATIO High 10-20 [facility] Comment on above: Performed By: #### L 100.0500, L500.2500 ####[facility] [address] [place], [address] CA,Total 8.8 mg/dL Normal 8.5-10.1 [facility] Comment on above: Performed By: #### L 100.0500, L500.2500 ####[facility] [address] [place], [address] Chloride [Moles/Vol] 105 mmol/L Normal 98-107 [facility] Comment on above: Performed By: #### L 100.0500, L500.2500 ####[facility] [address] [place], [address] CO2 [Moles/Vol] 26.0 mmol/L Normal 21.0-32.0 [facility] Comment on above: Performed By: #### L 100.0500, L500.2500 ####[facility] [address] [place], [address] Creatinine [Mass/Vol] 0.69 mg/dL Normal 0.55-1.02 [facility] Comment on above: Result Comment: The validity of the calculated GFR GFRAA in patients over70 years has not been determined. Clinical correlation isessential. Performed By: #### L 100.0500, L500.2500 ####[facility] [address] [place], [address] ECRCL 47.96 ml/min Normal [facility] Comment on above: Performed By: #### L 100.0500, L500.2500 ####[facility] [address] [place], [address] EST GFR - AA 104 mL/min Normal >60 [facility] Comment on above: Result Comment: Afri can Trinid[place] GFR Calc Performed By: #### L 100.0500, L500.2500 ####[facility] [address] [place], [address] GAP 9 Normal 5-15 [facility] Comment on above: Performed By: #### L 100.0500, L500.2500 ####[facility] [address] [place], [address] GFR/1.73 sq M.predicted among non-blacks MDRD (S/P/Bld) [Vol rate/Area] 86 mL/min/{1.73_m2} Normal >60 [facility] Comment on above: Result Comment: Non- GFR Calc Performed By: #### L 100.0500, L500.2500 ####[facility] [address] [place], [address] Glucose [Mass/Vol] 122 mg/dL High 74-106 [facility] Comment on above: Result Comment: Fast ing Glucose result from 100 to 125 mg/dLsuggests IMPAIRED HOMEOSTASIS per A.D.A. criteria. Performed By: #### L 100.0500, L500.2500 ####[facility] [address] [place], [address] Potassium [Moles/Vol] 3.3 mmol/L Low 3.5-5.1 [facility] Comment on above: Performed By: #### L 100.0500, L500.2500 ####[facility] [address] [place], [address] Sodium [Moles/Vol] 140 mmol/L Normal 136-145 [facility] Comment on above: Performed By: #### L 100.0500, L500.2500 ####[facility] [address] [place], [address] Urea nitrogen [Mass/Vol] 22 mg/dL High -18 [facility] Comment on above: Performed By: #### L 100.0500, L500.2500 ####[facility] [address] [place], [address] Bedside Glucoseon 03-19-2024 FINGERSTICK GLU 119 mg/dL High 74-106 [facility] Comment on above: Result Comment: LEVI HYDE OF PATIENT CARE PER NURSING PROTOCOL Performed By: #### L 501.080 ####[facility] [address] [place], [address] FINGERSTICK GLU 149 mg/dL High 74-106 [facility] Comment on above: Result Comment: LEVI GEMENT OF PATIENT CARE PER NURSING PROTOCOL Performed By: #### L 501.080 ####[facility] [address] [place], [address] FINGERSTICK GLU 186 mg/dL High 74-106 [facility] Comment on above: Result Comment: LEVI GEMENT OF PATIENT CARE PER NURSING PROTOCOL Performed By: #### L 501.080 ####[facility] [address] [place], [address] FINGERSTICK GLU 128 mg/dL High 74-106 [facility] Comment on above: Result Comment: LEVI GEMENT OF PATIENT CARE PER NURSING PROTOCOL Performed By: #### L 501.080 ####[facility] [address] [place], [address] CBC-Complete Blood Cnt No Di ffon 03-19-2024 Erythrocyte distribution width (RBC) [Ratio] 18.4 % High 11.6-14.6 [facility] Comment on above: Performed By: #### L 100.0500, L500.2500 ####[facility] [address] [place], [address] Hematocrit (Bld) [Volume fraction] 28.3 % Low 37-47 [facility] Comment on above: Performed By: #### L 100.0500, L500.2500 ####[facility] [address] [place], [address] Hemoglobin (Bld) [Mass/Vol] 9.2 g/dL Low 12.0-15.0 [facility] Comment on above: Performed By: #### L 100.0500, L500.2500 ####[facility] [address] [place], [address] MCH (RBC) [Entitic mass] 30.2 pg Normal 27.0-32.0 [facility] Comment on above: Performed By: #### L 100.0500, L500.2500 ####[facility] [address] [place], [address] MCHC (RBC) [Mass/Vol] 32.5 g/dL Normal 32-36 [facility] Comment on above: Performed By: #### L 100.0500, L500.2500 ####[facility] [address] [place], [address] MCV (RBC) [Entitic vol] 92.8 fL Normal 81-[address] [facility] Comment on above: Performed By: #### L 100.0500, L500.2500 ####[facility] [address] [place], [address] Platelet mean volume (Bld) [Entitic vol] 10.1 fL Normal 6.2-12.0 [facility] Comment on above: Performed By: #### L 100.0500, L500.2500 ####[facility] [address] [place], [address] Platelets (Bld) [#/Vol] 284 10*3/uL Normal 150-450 [facility] Comment on above: Performed By: #### L 100.0500, L500.2500 ####[facility] [address] [place], [address] RBC (Bld) [#/Vol] 3.05 10*6/uL Low 4.2-5.4 [facility] Comment on above: Performed By: #### L 100.0500, L500.2500 ####[facility] [address] [place], [address] RDW SD 60.3 fl High 35.1-43.9 [facility] Comment on above: Performed By: #### L 100.0500, L500.2500 ####[facility] [address] [place], [address] WBC (Bld) [#/Vol] 6.2 10*3/uL Normal 4.4-11.0 [facility] Comment on above: Performed By: #### L 100.0500, L500.2500 ####[facility] [address] [place], [address] Prothrombin Time w/INRon INR Coag (PPP) [Relative time] 2.6 {INR} Normal [facility] Comment on above: Performed By: #### L 300.3900 ####[facility] [address] [place], [address] PT Coag (PPP) [Time] 27.8 s High 11.7-14.9 [facility] Comment on above: Performed By: #### L 300.3900 ####[facility] [address] [place], [address] BRCon 03-18-2024 RC Normal [facility] Comment on above: Result Comment: [id number] AN RC TRANSFUSED 03/18/24 1720 Performed By: #### B , [facility] ####[facility] [address] [place], [address] Bedside Glucoseon 03-18-2024 FINGERSTICK GLU 129 mg/dL High 74-106 [facility] Comment on above: Result Comment: LEVI GEMENT OF PATIENT CARE PER NURSING PROTOCOL Performed By: #### L 501.080 ####[facility] [address] [place], [address] FINGERSTICK GLU 129 mg/dL High 74-106 [facility] Comment on above: Result Comment: LEVI GEMENT OF PATIENT CARE PER NURSING PROTOCOL Performed By: #### L 501.080 ####[facility] [address] [place], [address] FINGERSTICK GLU 128 mg/dL High 74-106 [facility] Comment on above: Result Comment: LEVI GEMENT OF PATIENT CARE PER NURSING PROTOCOL Performed By: #### L 501.080 ####[facility] [address] [place], [address] FINGERSTICK GLU 132 mg/dL High 74-106 [facility] Comment on above: Result Comment: LEVI GEMENT OF PATIENT CARE PER NURSING PROTOCOL Performed By: #### L 501.080 ####[facility] [address] [place], [address] CBC W/Diff, Automatedon 11 Absolute Lymph 1.74 X10 3/uL Normal 0.83-4.51 [facility] Comment on above: Performed By: #### L 100.0100 ####[facility] [address] [place], [address] Absolute Neut 3.2 X10 3/uL Normal 2.0-7.7 [facility] Comment on above: Performed By: #### L 100.0100 ####[facility] [address] [place], [address] Basophils/100 WBC (Bld) 0.5 % Normal 0-1 [facility] Comment on above: Performed By: #### L 100.0100 ####[facility] [address] [place], [address] Eosinophils/100 WBC (Bld) 2.6 % Normal 0-5 [facility] Comment on above: Performed By: #### L 100.0100 ####[facility] [address] [place], [address] Erythrocyte distribution width (RBC) [Ratio] 17.4 % High 11.6-14.6 [facility] Comment on above: Performed By: #### L 100.0100 ####[facility] [address] [place], [address] Hematocrit (Bld) [Volume fraction] 24.9 % Low 37-47 [facility] Comment on above: Performed By: #### L 100.0100 ####[facility] [address] [place], [address] Hemoglobin (Bld) [Mass/Vol] 7.7 g/dL Low 12.0-15.0 [facility] Comment on above: Performed By: #### L 100.0100 ####[facility] [address] [place], [address] IG% 0.500 Normal 0.0-0.9 [facility] Comment on above: Result Comment: IG% - Immature Granulocytes (promyelocytes, myelocytes andmetamyelocytes) > 1% indicates that a LEFT SHIFT is Present. Performed By: #### L 100.0100 ####[facility] [address] [place], [address] Lymphocytes/100 WBC (Bld) 30.0 % Normal 19-41 [facility] Comment on above: Performed By: #### L 100.0100 ####[facility] [address] [place], [address] MCH (RBC) [Entitic mass] 30.2 pg Normal 27.0-32.0 [facility] Comment on above: Performed By: #### L 100.0100 ####[facility] [address] [place], [address] MCHC (RBC) [Mass/Vol] 30.9 g/dL Low 32-36 [facility] Comment on above: Performed By: #### L 100.0100 ####[facility] [address] [place], [address] MCV (RBC) [Entitic vol] 97.6 fL Normal 81-99 [facility] Comment on above: Performed By: #### L 100.0100 ####[facility] [address] [place], [address] Monocytes/100 WBC (Bld) 11.6 % High 0-10 [facility] Comment on above: Performed By: #### L 100.0100 ####[facility] [address] [place], [address] Neutrophils/100 WBC (Bld) 54.8 % Normal 47-70 [facility] Comment on above: Performed By: #### L 100.0100 ####[facility] [address] [place], [address] Nucleated RBC (Bld) [#/Vol] 0.9 10*3/uL Normal 0-5 [facility] Comment on above: Performed By: #### L 100.0100 ####[facility] [address] [place], [address] Platelet mean volume (Bld) [Entitic vol] 10.5 fL Normal 6.2-12.0 [facility] Comment on above: Performed By: #### L 100.0100 ####[facility] [address] [place], [address] Platelets (Bld) [#/Vol] 229 10*3/uL Normal 150-450 [facility] Comment on above: Performed By: #### L 100.0100 ####[facility] [address] [place], [address] RBC (Bld) [#/Vol] 2.55 10*6/uL Low 4.2-5.4 [facility] Comment on above: Performed By: #### L 100.0100 ####[facility] [address] [place], [address] RDW SD 59.5 fl High 35.1-43.9 [facility] Comment on above: Performed By: #### L 100.0100 ####[facility] [address] [place], [address] WBC (Bld) [#/Vol] 5.8 10*3/uL Normal 4.4-11.0 [facility] Comment on above: Performed By: #### L 100.0100 ####[facility] [address] [place], [address] Prothrombin Time w/INRon INR Coag (PPP) [Relative time] 1.9 {INR} Normal [facility] Comment on above: Performed By: #### L 300.3900 ####[facility] [address] [place], [address] PT Coag (PPP) [Time] 22.0 s High 11.7-14.9 [facility] Comment on above: Performed By: #### L 300.3900 ####[facility] [address] [place], [address] Type AND Screenon 03-18-2024 Ab SCREEN GEL Negative Normal [facility] Comment on above: Order Comment: CMV N EG? NNumber of units to transfuse: 1Reason for Ordering Blood: AcuteAre the blood/blood products to be transfused? YIs the patient having/had surgery? YWhen Maryann Performed By: #### B , [facility] ####[facility] [address] [place], [address] Bedside Glucoseon 03-17-2024 FINGERSTICK GLU 140 mg/dL High 74-106 [facility] Comment on above: Result Comment: LEVI GEMENT OF PATIENT CARE PER NURSING PROTOCOL Performed By: #### L 501.080 ####[facility] [address] [place], [address] FINGERSTICK GLU 108 mg/dL High 74-106 [facility] Comment on above: Result Comment: LEVI GEMENT OF PATIENT CARE PER NURSING PROTOCOL Performed By: #### L 501.080 ####[facility] [address] [place], [address] FINGERSTICK GLU 172 mg/dL High 74-106 [facility] Comment on above: Result Comment: LEVI GEMENT OF PATIENT CARE PER NURSING PROTOCOL Performed By: #### L 501.080 ####[facility] [address] [place], [address] FINGERSTICK GLU 142 mg/dL High 74-106 [facility] Comment on above: Result Comment: LEVI GEMENT OF PATIENT CARE PER NURSING PROTOCOL Performed By: #### L 501.080 ####[facility] [address] [place], [address] Partial Thromboplast Timeon 03-17-2024 aPTT Coag (Bld) [Time] 78.3 s High 24.1-36.2 [facility] Comment on above: Performed By: #### L 300.4310 ####[facility] [address] [place], [address] aPTT Coag (Bld) [Time] 85.5 s High 24.1-36.2 [facility] Comment on above: Order Comment: Comme nts: heparin drip, time sensitive Performed By: #### L 300.4310 ####[facility] [address] [place], [address] aPTT Coag (Bld) [Time] 82.6 s High 24.1-36.2 [facility] Comment on above: Order Comment: Comme nts: heparin drip, time sensitive Performed By: #### L 300.4310 ####[facility] [address] [place], [address] Prothrombin Time w/INRon INR Coag (PPP) [Relative time] 1.3 {INR} Normal [facility] Comment on above: Performed By: #### L 300.3900 ####[facility] [address] [place], [address] PT Coag (PPP) [Time] 16.2 s High 11.7-14.9 [facility] Comment on above: Performed By: #### L 300.6680 ####[facility] [address] [place], [address] Bedside Glucoseon 03-16-2024 FINGERSTICK GLU 144 mg/dL High 74-106 [facility] Comment on above: Result Comment: LEVI GEMENT OF PATIENT CARE PER NURSING PROTOCOL Performed By: #### L 501.080 ####[facility] [address] [place], [address] FINGERSTICK GLU 140 mg/dL High [facility]106 [facility] Comment on above: Result Comment: LEVI GEMENT OF PATIENT CARE PER NURSING PROTOCOL Performed By: #### L 501.080 ####[facility] [address] [place], [address] FINGERSTICK GLU 129 mg/dL High -[address] [place] [address] Comment on above: Result Comment: LEVI GEMENT OF PATIENT CARE PER NURSING PROTOCOL Performed By: #### L 501.080 ####[facility] [address] [place], [address] FINGERSTICK GLU 131 mg/dL High -[address] [place] [address] Comment on above: Result Comment: LEVI GEMENT OF PATIENT CARE PER NURSING PROTOCOL Performed By: #### L 501.080 ####[facility] [address] [place], [address] Partial Thromboplast Timeon 03-16-2024 aPTT Coag (Bld) [Time] 79.3 s High 24.1-36.2 [facility] Comment on above: Performed By: #### L 300.0985 ####[facility] [address] [place], [address] Vancomycin, Trough Levelon 1 05-16-2023 VANCO, TROUGH 13.5 ug/mL Normal 5.0-15.0 [facility] Comment on above: Order Comment: 1400 Result Comment: VANC OMYCIN STANDARED DRUG THERAPY TROUGH LEVEL: 5.0 - 15.0 mg/LVANCOMYCIN HIGH INTENSITY THERAPY TROUGH LEVEL: 15.0 - 20.0 mg/LHigh Intensity therapy recommended for serious lifethreatening infections include:- Lahzutuelw-Fpbkwjxxxptv-Xtnrdvlye (Ventilator/Healtcare Associated)-SepsisPLEASE CONTACT PHARMACY SERVICES (#6568) FOR INTERPRETATIONOF RESULTS. Performed By: #### L 501.8820 ####[facility] [address] [place], [address] Basic Metabolic Profile (BMP )on 03-15-2024 BUN/CRE 20.1 RATIO High 10-20 [facility] Comment on above: Performed By: #### L 500.2500, L300.4310, L300.3900, L100.0100 ####[facility] [address] [place], [address] CA,Total 8.5 mg/dL Normal 8.5-10.1 [facility] Comment on above: Performed By: #### L 500.2500, L300.4310, L300.3900, L100.0100 ####[facility] [address] [place], [address] Chloride [Moles/Vol] 110 mmol/L High 98-107 [facility] Comment on above: Performed By: #### L 500.2500, L300.4310, L300.3900, L100.0100 ####[facility] [address] [place], [address] CO2 [Moles/Vol] 26.0 mmol/L Normal 21.0-32.0 [facility] Comment on above: Performed By: #### L 500.2500, L300.4310, L300.3900, L100.0100 ####[facility] [address] [place], [address] Creatinine [Mass/Vol] 1.00 mg/dL Normal 0.55-1.02 [facility] Comment on above: Result Comment: The validity of the calculated GFR GFRAA in patients over70 years has not been determined. Clinical correlation isessential. Performed By: #### L 500.2500, L300.4310, L300.3900, L100.0100 ####[facility] [address] [place], [address] ECRCL 37.84 ml/min Normal [facility] Comment on above: Performed By: #### L 500.2500, L300.4310, L300.3900, L100.0100 ####[facility] [address] [place], [address] EST GFR - AA 68 mL/min Normal >60 [facility] Comment on above: Result Comment: Afri can Trinidadian GFR Calc Performed By: #### L 500.2500, L300.4310, L300.3900, L100.0100 ####[facility] [address] [place], [address] GAP 4 Low 5-15 [facility] Comment on above: Performed By: #### L 500.2500, L300.4310, L300.3900, L100.0100 ####[facility] [address] [place], [address] GFR/1.73 sq M.predicted among non-blacks MDRD (S/P/Bld) [Vol rate/Area] 56 mL/min/{1.73_m2} Low >60 [facility] Comment on above: Result Comment: Non- GFR Calc Performed By: #### L 500.2500, L300.4310, L300.3900, L100.0100 ####[facility] [address] [place], [address] Glucose [Mass/Vol] 134 mg/dL High 74-106 [facility] Comment on above: Result Comment: Fast ing Glucose result greater than or equal to 126 mg/dLsuggests DIABETES MELLITUS per A.D.A. criteria. Performed By: #### L 500.2500, L300.4310, L300.3900, L100.0100 ####[facility] [address] [place], [address] Potassium [Moles/Vol] 3.4 mmol/L Low 3.5-5.1 [facility] Comment on above: Performed By: #### L 500.2500, L300.4310, L300.3900, L100.0100 ####[facility] [address] [place], [address] Sodium [Moles/Vol] 140 mmol/L Normal 136-145 [facility] Comment on above: Performed By: #### L 500.2500, L300.4310, L300.3900, L100.0100 ####[facility] [address] [place], [address] Urea nitrogen [Mass/Vol] 20 mg/dL High 7-18 [facility] Comment on above: Performed By: #### L 500.2500, L300.4310, L300.3900, L100.0100 ####[facility] [address] [place], [address] Bedside Glucoseon 03-15-2024 FINGERSTICK GLU 137 mg/dL High 74-106 [facility] Comment on above: Result Comment: LEVI GEMENT OF PATIENT CARE PER NURSING PROTOCOL Performed By: #### L 501.080 ####[facility] [address] [place], [address] FINGERSTICK GLU 130 mg/dL High 74-106 [facility] Comment on above: Result Comment: LEVI GEMENT OF PATIENT CARE PER NURSING PROTOCOL Performed By: #### L 501.080 ####[facility] [address] [place], [address] FINGERSTICK GLU 116 mg/dL High 74-106 [facility] Comment on above: Result Comment: LEVI GEMENT OF PATIENT CARE PER NURSING PROTOCOL Performed By: #### L 501.080 ####[facility] [address] [place], [address] FINGERSTICK GLU 132 mg/dL High 74-106 [facility] Comment on above: Result Comment: LEVI GEMENT OF PATIENT CARE PER NURSING PROTOCOL Performed By: #### L 501.080 ####[facility] [address] [place], [address] CBC W/Diff, Automatedon 11- Absolute Lymph 1.66 X10 3/uL Normal 0.83-4.51 [facility] Comment on above: Performed By: #### L 500.2500, L300.4310, L300.3900, L100.0100 ####[facility] [address] [place], [address] Absolute Neut 5.3 X10 3/uL Normal 2.0-7.7 [facility] Comment on above: Performed By: #### L 500.2500, L300.4310, L300.3900, L100.0100 ####[facility] [address] [place], [address] Basophils/100 WBC (Bld) 0.8 % Normal 0-1 [facility] Comment on above: Performed By: #### L 500.2500, L300.4310, L300.3900, L100.0100 ####[facility] [address] [place], [address] Eosinophils/100 WBC (Bld) 1.4 % Normal 0-5 [facility] Comment on above: Performed By: #### L 500.2500, L300.4310, L300.3900, L100.0100 ####[facility] [address] [place], [address] Erythrocyte distribution width (RBC) [Ratio] 17.5 % High 11.6-14.6 [facility] Comment on above: Performed By: #### L 500.2500, L300.4310, L300.3900, L100.0100 ####[facility] [address] [place], [address] Hematocrit (Bld) [Volume fraction] 28.0 % Low 37-47 [facility] Comment on above: Performed By: #### L 500.2500, L300.4310, L300.3900, L100.0100 ####[facility] [address] [place], [address] Hemoglobin (Bld) [Mass/Vol] 9.2 g/dL Low 12.0-15.0 [facility] Comment on above: Performed By: #### L 500.2500, L300.4310, L300.3900, L100.0100 ####[facility] [address] [place], [address] IG% 0.600 Normal 0.0-0.9 [facility] Comment on above: Result Comment: IG% - Immature Granulocytes (promyelocytes, myelocytes andmetamyelocytes) > 1% indicates that a LEFT SHIFT is Present. Performed By: #### L 500.2500, L300.4310, L300.3900, L100.0100 ####[facility] [address] [place], [address] Lymphocytes/100 WBC (Bld) 21.1 % Normal 19-41 [facility] Comment on above: Performed By: #### L 500.2500, L300.4310, L300.3900, L100.0100 ####[facility] [address] [place], [address] MCH (RBC) [Entitic mass] 30.9 pg Normal 27.0-32.0 [facility] Comment on above: Performed By: #### L 500.2500, L300.4310, L300.3900, L100.0100 ####[facility] [address] [place], [address] MCHC (RBC) [Mass/Vol] 32.9 g/dL Normal 32-36 [facility] Comment on above: Performed By: #### L 500.2500, L300.4310, L300.3900, L100.0100 ####[facility] [address] [place], [address] MCV (RBC) [Entitic vol] 94.0 fL Normal 81-[address] [facility] Comment on above: Performed By: #### L 500.2500, L300.4310, L300.3900, L100.0100 ####[facility] [address] [place], [address] Monocytes/100 WBC (Bld) 8.9 % Normal 0-[address] [facility] Comment on above: Performed By: #### L 500.2500, L300.4310, L300.3900, L100.0100 ####[facility] [address] [place], [address] Neutrophils/100 WBC (Bld) 67.2 % Normal 47-70 [facility] Comment on above: Performed By: #### L 500.2500, L300.4310, L300.3900, L100.0100 ####[facility] [address] [place], [address] Nucleated RBC (Bld) [#/Vol] 0.3 10*3/uL Normal 0-5 [facility] Comment on above: Performed By: #### L 500.2500, L300.4310, L300.3900, L100.0100 ####[facility] [address] [place], [address] Platelet mean volume (Bld) [Entitic vol] 10.1 fL Normal 6.2-12.0 [facility] Comment on above: Performed By: #### L 500.2500, L300.4310, L300.3900, L100.0100 ####[facility] [address] [place], [address] Platelets (Bld) [#/Vol] 165 10*3/uL Normal 150-450 [facility] Comment on above: Performed By: #### L 500.2500, L300.4310, L300.3900, L100.0100 ####[facility] [address] [place], [address] RBC (Bld) [#/Vol] 2.98 10*6/uL Low 4.2-5.4 [facility] Comment on above: Performed By: #### L 500.2500, L300.4310, L300.3900, L100.0100 ####[facility] [address] [place], [address] RDW SD 59.0 fl High 35.1-43.9 [facility] Comment on above: Performed By: #### L 500.2500, L300.4310, L300.3900, L100.0100 ####[facility] [address] [place], [address] WBC (Bld) [#/Vol] 7.9 10*3/uL Normal 4.4-11.0 [facility] Comment on above: Performed By: #### L 500.2500, L300.4310, L300.3900, L100.0100 ####[facility] [address] [place], [address] Decalcification bone/plaqueo n 03-15-2024 Decalcification bone/plaque Normal [facility] Comment on above: Performed By: #### P DEC ####[facility] [address] [place], [address] Foot min 3 Viewson 4 Foot min 3 Views Normal [facility] MR/POSTOP.ANEon 03-15-2024 MR/POSTOP.ANE Normal [facility] Operative Reporton 4 Operative Report Normal [facility] Partial Thromboplast Timeon 03-15-2024 aPTT Coag (Bld) [Time] 29.4 s Normal 24.1-36.2 [facility] Comment on above: Performed By: #### L 500.2500, L300.4310, L300.3900, L100.0100 ####[facility] [address] [place], [address] Prothrombin Time w/INRon INR Coag (PPP) [Relative time] 1.1 {INR} Normal [facility] Comment on above: Performed By: #### L 500.2500, L300.4310, L300.3900, L100.0100 ####[facility] [address] [place], [address] PT Coag (PPP) [Time] 14.3 s Normal 11.7-14.9 [facility] Comment on above: Performed By: #### L 500.2500, L300.4310, L300.3900, L100.0100 ####[facility] [address] [place], [address] Bedside Glucoseon 03-14-2024 FINGERSTICK GLU 146 mg/dL High 74-106 [facility] Comment on above: Result Comment: LEVI GEMENT OF PATIENT CARE PER NURSING PROTOCOL Performed By: #### L 501.080 ####[facility] [address] [place], [address] FINGERSTICK GLU 161 mg/dL High 74-106 [facility] Comment on above: Result Comment: LEVI GEMENT OF PATIENT CARE PER NURSING PROTOCOL Performed By: #### L 501.080 ####[facility] [address] [place], [address] FINGERSTICK GLU 118 mg/dL High 74-106 [facility] Comment on above: Result Comment: LEVI GEMENT OF PATIENT CARE PER NURSING PROTOCOL Performed By: #### L 501.080 ####[facility] [address] [place], [address] FINGERSTICK GLU 115 mg/dL High 74-106 [facility] Comment on above: Result Comment: LEVI GEMENT OF PATIENT CARE PER NURSING PROTOCOL Performed By: #### L 501.080 ####[facility] [address] [place], [address] FINGERSTICK GLU 139 mg/dL High 74-106 [facility] Comment on above: Result Comment: LEVI GEMENT OF PATIENT CARE PER NURSING PROTOCOL Performed By: #### L 501.080 ####[facility] [address] [place], [address] CBC W/Diff, Automatedon 11- 3-2023 Absolute Lymph 1.65 X10 3/uL Normal 0.83-4.51 [facility] Comment on above: Performed By: #### L 100.0100 ####[facility] [address] [place], [address] Absolute Neut 6.7 X10 3/uL Normal 2.0-7.7 [facility] Comment on above: Performed By: #### L 100.0100 ####[facility] [address], [address] Basophils/100 WBC (Bld) 0.4 % Normal 0-1 [facility] Comment on above: Performed By: #### L 100.0100 ####[facility] [address], [address] Eosinophils/100 WBC (Bld) 0.3 % Normal 0-5 [facility] Comment on above: Performed By: #### L 100.0100 ####[facility] [address] [place], [address] Erythrocyte distribution width (RBC) [Ratio] 17.7 % High 11.6-14.6 [facility] Comment on above: Performed By: #### L 100.0100 ####[facility] [address] [place], [address] Hematocrit (Bld) [Volume fraction] 28.3 % Low 37-47 [facility] Comment on above: Performed By: #### L 100.0100 ####[facility] [address] [place], [address] Hemoglobin (Bld) [Mass/Vol] 9.4 g/dL Low 12.0-15.0 [facility] Comment on above: Performed By: #### L 100.0100 ####[facility] [address] [place], [address] IG% 0.400 Normal 0.0-0.9 [facility] Comment on above: Result Comment: IG% - Immature Granulocytes (promyelocytes, myelocytes andmetamyelocytes) > 1% indicates that a LEFT SHIFT is Present. Performed By: #### L 100.0100 ####[facility] [address] [place], [address] Lymphocytes/100 WBC (Bld) 17.7 % Low 19-41 [facility] Comment on above: Performed By: #### L 100.0100 ####[facility] [address] [place], [address] MCH (RBC) [Entitic mass] 30.6 pg Normal 27.0-32.0 [facility] Comment on above: Performed By: #### L 100.0100 ####[facility] [address] [place], [address] MCHC (RBC) [Mass/Vol] 33.2 g/dL Normal 32-36 [facility] Comment on above: Performed By: #### L 100.0100 ####[facility] [address] [place], [address] MCV (RBC) [Entitic vol] 92.2 fL Normal 81-99 [facility] Comment on above: Performed By: #### L 100.0100 ####[facility] [address] [place], [address] Monocytes/100 WBC (Bld) 9.1 % Normal 0-10 [facility] Comment on above: Performed By: #### L 100.0100 ####[facility] [address] [place], [address] Neutrophils/100 WBC (Bld) 72.1 % High 47-70 [facility] Comment on above: Performed By: #### L 100.0100 ####[facility] [address] [place], [address] Nucleated RBC (Bld) [#/Vol] 0.2 10*3/uL Normal 0-5 [facility] Comment on above: Performed By: #### L 100.0100 ####[facility] [address] [place], [address] Platelet mean volume (Bld) [Entitic vol] 9.3 fL Normal 6.2-12.0 [facility] Comment on above: Performed By: #### L 100.0100 ####[facility] [address] [place], [address] Platelets (Bld) [#/Vol] 150 10*3/uL Normal 150-450 [facility] Comment on above: Performed By: #### L 100.0100 ####[facility] [address] [place], [address] RBC (Bld) [#/Vol] 3.07 10*6/uL Low 4.2-5.4 [facility] Comment on above: Performed By: #### L 100.0100 ####[facility] [address] [place], [address] RDW SD 58.8 fl High 35.1-43.9 [facility] Comment on above: Performed By: #### L 100.0100 ####[facility] [address] [place], [address] WBC (Bld) [#/Vol] 9.3 10*3/uL Normal 4.4-11.0 [facility] Comment on above: Performed By: #### L 100.0100 ####[facility] [address] [place], [address] Absolute Lymph 1.92 X10 3/uL Normal 0.83-4.51 [facility] Comment on above: Performed By: #### L 100.0100 ####[facility] [address] [place], [address] Absolute Neut 6.5 X10 3/uL Normal 2.0-7.7 [facility] Comment on above: Performed By: #### L 100.0100 ####[facility] [address] [place], [address] Basophils/100 WBC (Bld) 0.3 % Normal 0-[address] [facility] Comment on above: Performed By: #### L 100.0100 ####[facility] [address] [place], [address] Eosinophils/100 WBC (Bld) 0.3 % Normal 0-5 [facility] Comment on above: Performed By: #### L 100.0100 ####[facility] [address] [place], [address] Erythrocyte distribution width (RBC) [Ratio] 17.7 % High 11.6-14.6 [facility] Comment on above: Performed By: #### L 100.0100 ####[facility] [address] [place], [address] Hematocrit (Bld) [Volume fraction] 30.2 % Low 37-47 [facility] Comment on above: Performed By: #### L 100.0100 ####[facility] [address] [place], [address] Hemoglobin (Bld) [Mass/Vol] 9.6 g/dL Low 12.0-15.0 [facility] Comment on above: Performed By: #### L 100.0100 ####[facility] [address] [place], [address] IG% 0.300 Normal 0.0-0.9 [facility] Comment on above: Result Comment: IG% - Immature Granulocytes (promyelocytes, myelocytes andmetamyelocytes) > 1% indicates that a LEFT SHIFT is Present. Performed By: #### L 100.0100 ####[facility] [address] [place], [address] Lymphocytes/100 WBC (Bld) 20.4 % Normal 19-41 [facility] Comment on above: Performed By: #### L 100.0100 ####[facility] [address] [place], [address] MCH (RBC) [Entitic mass] 30.2 pg Normal 27.0-32.0 [facility] Comment on above: Performed By: #### L 100.0100 ####[facility] [address] [place], [address] MCHC (RBC) [Mass/Vol] 31.8 g/dL Low 32-36 [facility] Comment on above: Performed By: #### L 100.0100 ####[facility] [address] [place], [address] MCV (RBC) [Entitic vol] 95.0 fL Normal 81-99 [facility] Comment on above: Performed By: #### L 100.0100 ####[facility] [address] [place], [address] Monocytes/100 WBC (Bld) 9.8 % Normal 0-[address] [facility] Comment on above: Performed By: #### L 100.0100 ####[facility] [address] [place], [address] Neutrophils/100 WBC (Bld) 68.9 % Normal 47-70 [facility] Comment on above: Performed By: #### L 100.0100 ####[facility] [address] [place], [address] Nucleated RBC (Bld) [#/Vol] 0 10*3/uL Normal 0-5 [facility] Comment on above: Performed By: #### L 100.0100 ####[facility] [address] [place], [address] Platelet mean volume (Bld) [Entitic vol] 10.2 fL Normal 6.2-12.0 [facility] Comment on above: Performed By: #### L 100.0100 ####[facility] [address] [place], [address] Platelets (Bld) [#/Vol] 159 10*3/uL Normal 150-450 [facility] Comment on above: Performed By: #### L 100.0100 ####[facility] [address] [place], [address] RBC (Bld) [#/Vol] 3.18 10*6/uL Low 4.2-5.4 [facility] Comment on above: Performed By: #### L 100.0100 ####[facility] [address] [place], [address] RDW SD 60.9 fl High 35.1-43.9 [facility] Comment on above: Performed By: #### L 100.0100 ####[facility] [address] [place], [address] WBC (Bld) [#/Vol] 9.4 10*3/uL Normal 4.4-11.0 [facility] Comment on above: Performed By: #### L 100.0100 ####[facility] [address] [place], [address] HH, Hemoglobin AND Hematocri ton 03-14-2024 Hematocrit (Bld) [Volume fraction] 28.1 % Low 37-47 [facility] Comment on above: Performed By: #### L 100.0600 ####[facility] [address] [place], [address] Hemoglobin (Bld) [Mass/Vol] 9.4 g/dL Low 12.0-15.0 [facility] Comment on above: Performed By: #### L 100.0600 ####[facility] [address] [place], [address] Hemoglobinon 03-14-2024 Hemoglobin (Bld) [Mass/Vol] 9.1 g/dL Low 12.0-15.0 [facility] Comment on above: Performed By: #### L 100.1300 ####[facility] [address] [place], [address] Partial Thromboplast Timeon 03-14-2024 aPTT Coag (Bld) [Time] 30.0 s Normal 24.1-36.2 [facility] Comment on above: Performed By: #### L 300.4310 ####[facility] [address] [place], [address] aPTT Coag (Bld) [Time] 27.3 s Normal 24.1-36.2 [facility] Comment on above: Performed By: #### L 300.3900, L300.4310 ####[facility] [address] [place], [address] Prothrombin Time w/INRon INR Coag (PPP) [Relative time] 1.1 {INR} Normal [facility] Comment on above: Performed By: #### L 300.3900, L300.4310 ####[facility] [address] [place], [address] PT Coag (PPP) [Time] 14.6 s Normal 11.7-14.9 [facility] Comment on above: Performed By: #### L 300.3900, L300.4310 ####[facility] [address] [place], [address] Serum Creatinine AND GFRon 1 05-14-2023 Creatinine [Mass/Vol] 1.20 mg/dL High 0.55-1.02 [facility] Comment on above: Result Comment: The validity of the calculated GFR GFRAA in patients over70 years has not been determined. Clinical correlation isessential. Performed By: #### L 501.1105 ####[facility] [address] [place], [address] ECRCL 31.54 ml/min Normal [facility] Comment on above: Performed By: #### L 501.1105 ####[facility] [address] [place], [address] EST GFR - AA 55 mL/min Low >60 [facility] Comment on above: Result Comment: Afri can Trinidadian GFR Calc Performed By: #### L 501.1105 ####[facility] [address] [place], [address] GFR/1.73 sq M.predicted among non-blacks MDRD (S/P/Bld) [Vol rate/Area] 45 mL/min/{1.73_m2} Low >60 [facility] Comment on above: Result Comment: Non- GFR Calc Performed By: #### L 501.1105 ####[facility] [address] [place], [place], [address] Vancomycin, Random Levelon 1 05-14-2023 VANCO, RANDOM 16.6 ug/mL High 0.0-15.0 [facility] Comment on above: Result Comment: VANC OMYCIN STANDARD DRUG THERAPY: CRITICAL VALUE IS > 15.0 mg/LVANCOMYCIN HIGH INTENSITY THERAPY: CRITICAL VALUE IS > 20.0 mg/LPLEASE CONTACT PHARMACY SERVICES (#7630) FOR INTERPRETATIONOF RESULTS. THIS RESULT DOES NOT REPRESENT A PEAK OR TROUGHLEVEL FOR THIS DRUG. Performed By: #### L 501.8850 ####[facility] [address] [place], [place], [address] Vancomycin, Trough Levelon 1 05-14-2023 VANCO, TROUGH 23.6 ug/mL High 5.0-15.0 [facility] Comment on above: Order Comment: Comme nts: Trough to be drawn 30 mins prior to scheduled [id number] Result Comment: VANC OMYCIN STANDARED DRUG THERAPY TROUGH LEVEL: 5.0 - 15.0 mg/LVANCOMYCIN HIGH INTENSITY THERAPY TROUGH LEVEL: 15.0 - 20.0 mg/LHigh Intensity therapy recommended for serious lifethreatening infections include:- Jzrasxnmax-Ezuztbjzzyhp-Ammqkfayt (Ventilator/Healtcare Associated)-SepsisPLEASE CONTACT PHARMACY SERVICES (#[id number]) FOR INTERPRETATIONOF RESULTS. Performed By: #### L 501.8820 ####[facility] [address] [place], [place], [address] 12 Lead EKGon 03-13-2024 12 Lead EKG Normal [facility] Basic Metabolic Profile (BMP )on 03-13-2024 BUN/CRE 14.0 RATIO Normal 10-20 [facility] Comment on above: Performed By: #### L 100.0100, L500.2500 ####[facility] [address] [place], [address] CA,Total 8.9 mg/dL Normal 8.5-10.1 [facility] Comment on above: Performed By: #### L 100.0100, L500.2500 ####[facility] [address] [place], [address] Chloride [Moles/Vol] 112 mmol/L High 98-107 [facility] Comment on above: Performed By: #### L 100.0100, L500.2500 ####[facility] [address] [place], [address] CO2 [Moles/Vol] 19.0 mmol/L Low 21.0-32.0 [facility] Comment on above: Performed By: #### L 100.0100, L500.2500 ####[facility] [address] [place], [address] Creatinine [Mass/Vol] 1.36 mg/dL High 0.55-1.02 [facility] Comment on above: Result Comment: The validity of the calculated GFR GFRAA in patients over70 years has not been determined. Clinical correlation isessential. Performed By: #### L 100.0100, L500.2500 ####[facility] [address] [place], [address] ECRCL 28.89 ml/min Normal [facility] Comment on above: Performed By: #### L 100.0100, L500.2500 ####[facility] [address] [place], [address] EST GFR - AA 48 mL/min Low >60 [facility] Comment on above: Result Comment: Afri can Trinidadian GFR Calc Performed By: #### L 100.0100, L500.2500 ####[facility] [address] [place], [address] GAP 10 Normal 5-15 [facility] Comment on above: Performed By: #### L 100.0100, L500.2500 ####[facility] [address] [place], [address] GFR/1.73 sq M.predicted among non-blacks MDRD (S/P/Bld) [Vol rate/Area] 39 mL/min/{1.73_m2} Low >60 [facility] Comment on above: Result Comment: Non- GFR Calc Performed By: #### L 100.0100, L500.2500 ####[facility] [address] [place], [address] Glucose [Mass/Vol] 186 mg/dL High 74-106 [facility] Comment on above: Result Comment: Fast ing Glucose result greater than or equal to 126 mg/dLsuggests DIABETES MELLITUS per A.D.A. criteria. Performed By: #### L 100.0100, L500.2500 ####[facility] [address] [place], [address] Potassium [Moles/Vol] 3.8 mmol/L Normal 3.5-5.1 [facility] Comment on above: Performed By: #### L 100.0100, L500.2500 ####[facility] [address] [place], [address] Sodium [Moles/Vol] 141 mmol/L Normal 136-145 [facility] Comment on above: Performed By: #### L 100.0100, L500.2500 ####[facility] [address] [place], [address] Urea nitrogen [Mass/Vol] 19 mg/dL High 7-18 [facility] Comment on above: Performed By: #### L 100.0100, L500.2500 ####[facility] [address] [place], [address] Bedside Glucoseon 03-13-2024 FINGERSTICK GLU 189 mg/dL High 74-106 [facility] Comment on above: Result Comment: LEVI GEMENT OF PATIENT CARE PER NURSING PROTOCOL Performed By: #### L 501.080 ####[facility] [address] [place], [address] FINGERSTICK GLU 179 mg/dL High 74-106 [facility] Comment on above: Result Comment: LEVI GEMENT OF PATIENT CARE PER NURSING PROTOCOL Performed By: #### L 501.080 ####[facility] [address] [place], [address] FINGERSTICK GLU 155 mg/dL High 74-106 [facility] Comment on above: Result Comment: LEVI GEMENT OF PATIENT CARE PER NURSING PROTOCOL Performed By: #### L 501.080 ####[facility] [address] [place], [address] CBC W/Diff, Automatedon 11-05 03-2023 Absolute Lymph 1.20 X10 3/uL Normal 0.83-4.51 [facility] Comment on above: Performed By: #### L 100.0100, L500.2500 ####[facility] [address] [place], [address] Absolute Neut 10.8 X10 3/uL High 2.0-7.7 [facility] Comment on above: Performed By: #### L 100.0100, L500.2500 ####[facility] [address] [place], [address] Basophils/100 WBC (Bld) 0.2 % Normal 0-1 [facility] Comment on above: Performed By: #### L 100.0100, L500.2500 ####[facility] [address] [place], [address] Eosinophils/100 WBC (Bld) 0.0 % Normal 0-5 [facility] Comment on above: Performed By: #### L 100.0100, L500.2500 ####[facility] [address] [place], [address] Erythrocyte distribution width (RBC) [Ratio] 17.8 % High 11.6-14.6 [facility] Comment on above: Performed By: #### L 100.0100, L500.2500 ####[facility] [address] [place], [address] Hematocrit (Bld) [Volume fraction] 29.8 % Low 37-47 [facility] Comment on above: Performed By: #### L 100.0100, L500.2500 ####[facility] [address] [place], [address] Hemoglobin (Bld) [Mass/Vol] 9.8 g/dL Low 12.0-15.0 [facility] Comment on above: Performed By: #### L 100.0100, L500.2500 ####[facility] [address] [place], [address] IG% 0.700 Normal 0.0-0.9 [facility] Comment on above: Result Comment: IG% - Immature Granulocytes (promyelocytes, myelocytes andmetamyelocytes) > 1% indicates that a LEFT SHIFT is Present. Performed By: #### L 100.0100, L500.2500 ####[facility] [address] [place], [address] Lymphocytes/100 WBC (Bld) 9.4 % Low 19-41 [facility] Comment on above: Performed By: #### L 100.0100, L500.2500 ####[facility] [address] [place], [address] MCH (RBC) [Entitic mass] 31.0 pg Normal 27.0-32.0 [facility] Comment on above: Performed By: #### L 100.0100, L500.2500 ####[facility] [address] [place], [address] MCHC (RBC) [Mass/Vol] 32.9 g/dL Normal 32-36 [facility] Comment on above: Performed By: #### L 100.0100, L500.2500 ####[facility] [address] [place], [address] MCV (RBC) [Entitic vol] 94.3 fL Normal 81-99 [facility] Comment on above: Performed By: #### L 100.0100, L500.2500 ####[facility] [address] [place], [address] Monocytes/100 WBC (Bld) 5.3 % Normal 0-10 [facility] Comment on above: Performed By: #### L 100.0100, L500.2500 ####[facility] [address] [place], [address] Neutrophils/100 WBC (Bld) 84.4 % High 47-70 [facility] Comment on above: Performed By: #### L 100.0100, L500.2500 ####[facility] [address] [place], [address] Nucleated RBC (Bld) [#/Vol] 0.2 10*3/uL Normal 0-5 [facility] Comment on above: Performed By: #### L 100.0100, L500.2500 ####[facility] [address] [place], [address] Platelet mean volume (Bld) [Entitic vol] 9.5 fL Normal 6.2-12.0 [facility] Comment on above: Performed By: #### L 100.0100, L500.2500 ####[facility] [address] [place], [address] Platelets (Bld) [#/Vol] 231 10*3/uL Normal 150-450 [facility] Comment on above: Performed By: #### L 100.0100, L500.2500 ####[facility] [address] [place], [address] RBC (Bld) [#/Vol] 3.16 10*6/uL Low 4.2-5.4 [facility] Comment on above: Performed By: #### L 100.0100, L500.2500 ####[facility] [address] [place], [address] RDW SD 61.0 fl High 35.1-43.9 [facility] Comment on above: Performed By: #### L 100.0100, L500.2500 ####[facility] [address] [place], [address] WBC (Bld) [#/Vol] 12.8 10*3/uL High 4.4-11.0 [facility] Comment on above: Performed By: #### L 100.0100, L500.2500 ####[facility] [address] [place], [address] Culture, Blood (WB)on 2023 CUB Blood cultures x2, from two different sites No growth in 5 days. Normal [facility] Comment on above: Performed By: #### M 200.1000 ####[facility] [address] [place], [address] Hemoglobinon 03-13-2024 Hemoglobin (Bld) [Mass/Vol] 7.5 g/dL Low 12.0-15.0 [facility] Comment on above: Performed By: #### L 100.1300 ####[facility] [address] [place], [address] Partial Thromboplast Timeon 03-13-2024 aPTT Coag (Bld) [Time] 39.8 s High 24.1-36.2 [facility] Comment on above: Performed By: #### L 300.4310 ####[facility] [address] [place], [address] aPTT Coag (Bld) [Time] 26.9 s Normal 24.1-36.2 [facility] Comment on above: Performed By: #### L 300.4310 ####[facility] [address] [place], [address] Prothrombin Time w/INRon INR Coag (PPP) [Relative time] 1.2 {INR} Normal [facility] Comment on above: Performed By: #### L 300.3900 ####[facility] [address] [place], [address] PT Coag (PPP) [Time] 15.2 s High 11.7-14.9 [facility] Comment on above: Performed By: #### L 300.3900 ####[facility] [address] [place], [address] ACT Activated Clotting Timeo n 03-12-2024 ACTk CLOT TIME 281 sec High 74-137 [facility] Comment on above: Performed By: #### L 9100.0100 ####[facility] [address] [place], [address] BRCon 03-12-2024 RC Normal [facility] Comment on above: Result Comment: [id number] AP RC TRANSFUSED 03/13/24 [id number] AP RC TRANSFUSED 03/13/242011 Performed By: #### B RC ####[facility] [address] [place], [address] Result Comment: [id number] AP RC NOT [id number] AP RC TRANSFUSED 03/12/24 2311 Performed By: #### B SETH, BTS ####[facility] [address] [place], [address] Basic Metabolic Profile (BMP )on 03-12-2024 BUN/CRE 10.7 RATIO Normal - [facility] Comment on above: Performed By: #### L 500.2500, L100.0100 ####[facility] [address] [place], [address] CA,Total 9.5 mg/dL Normal 8.5-10.1 [facility] Comment on above: Performed By: #### L 500.2500, L100.0100 ####[facility] [address] [place], [address] Chloride [Moles/Vol] 108 mmol/L High 98-107 [facility] Comment on above: Performed By: #### L 500.2500, L100.0100 ####[facility] [address] [place], [address] CO2 [Moles/Vol] 19.0 mmol/L Low 21.0-32.0 [facility] Comment on above: Performed By: #### L 500.2500, L100.0100 ####[facility] [address] [place], [address] Creatinine [Mass/Vol] 1.12 mg/dL High 0.55-1.02 [facility] Comment on above: Result Comment: The validity of the calculated GFR GFRAA in patients over70 years has not been determined. Clinical correlation isessential. Performed By: #### L 500.2500, L100.0100 ####[facility] [address] [place], [address] ECRCL 35.09 ml/min Normal [facility] Comment on above: Performed By: #### L 500.2500, L100.0100 ####[facility] [address] [place], [address] EST GFR - AA 60 mL/min Normal >60 [facility] Comment on above: Result Comment: Afri can Trinidadian GFR Calc Performed By: #### L 500.2500, L100.0100 ####[facility] [address] [place], [address] GAP 11 Normal 5-15 [facility] Comment on above: Performed By: #### L 500.2500, L100.0100 ####[facility] [address] [place], [address] GFR/1.73 sq M.predicted among non-blacks MDRD (S/P/Bld) [Vol rate/Area] 49 mL/min/{1.73_m2} Low >60 [facility] Comment on above: Result Comment: Non- GFR Calc Performed By: #### L 500.2500, L100.0100 ####[facility] [address] [place], [address] Glucose [Mass/Vol] 162 mg/dL High 74-106 [facility] Comment on above: Result Comment: Fast ing Glucose result greater than or equal to 126 mg/dLsuggests DIABETES MELLITUS per A.D.A. criteria. Performed By: #### L 500.2500, L100.0100 ####[facility] [address] [place], [address] Potassium [Moles/Vol] 3.5 mmol/L Normal 3.5-5.1 [facility] Comment on above: Result Comment: Slig ht Hemolysis, Result may be falsely increased. Performed By: #### L 500.2500, L100.0100 ####[facility] [address] [place], [address] Sodium [Moles/Vol] 138 mmol/L Normal 136-145 [facility] Comment on above: Performed By: #### L 500.2500, L100.0100 ####[facility] [address] [place], [address] Urea nitrogen [Mass/Vol] 12 mg/dL Normal 7-18 [facility] Comment on above: Performed By: #### L 500.2500, L100.0100 ####[facility] [address] [place], [address] Bedside Glucoseon 03-12-2024 FINGERSTICK GLU 224 mg/dL High 74-106 [facility] Comment on above: Result Comment: LEVI GEMENT OF PATIENT CARE PER NURSING PROTOCOL Performed By: #### L 501.080 ####[facility] [address] [place], [address] FINGERSTICK GLU 197 mg/dL High 74-106 [facility] Comment on above: Result Comment: LEVI GEMENT OF PATIENT CARE PER NURSING PROTOCOL Performed By: #### L 501.080 ####[facility] [address] [place], [address] FINGERSTICK GLU 144 mg/dL High 74-106 [facility] Comment on above: Result Comment: LEVI GEMENT OF PATIENT CARE PER NURSING PROTOCOL Performed By: #### L 501.080 ####[facility] [address] [place], [address] CBC W/Diff, Automatedon 03-02 Absolute Lymph 3.19 X10 3/uL Normal 0.83-4.51 [facility] Comment on above: Performed By: #### L 100.0100 ####[facility] [address] [place], [address] Absolute Neut 11.4 X10 3/uL High 2.0-7.7 [facility] Comment on above: Performed By: #### L 100.0100 ####[facility] [address] [place], [address] Basophils/100 WBC (Bld) 0.5 % Normal 0-1 [facility] [facility] Comment on above: Performed By: #### L 100.0100 ####[facility] [address] [place], [address] Eosinophils/100 WBC (Bld) 0.3 % Normal 0-5 [facility] Comment on above: Performed By: #### L 100.0100 ####[facility] [address] [place], [address] Erythrocyte distribution width (RBC) [Ratio] 15.9 % High 11.6-14.6 [facility] Comment on above: Performed By: #### L 100.0100 ####[facility] [address] [place], [address] Hematocrit (Bld) [Volume fraction] 29.4 % Low 37-47 [facility] Comment on above: Performed By: #### L 100.0100 ####[facility] [address] [place], [address] Hemoglobin (Bld) [Mass/Vol] 9.4 g/dL Low 12.0-15.0 [facility] Comment on above: Performed By: #### L 100.0100 ####[facility] [address] [place], [address] IG% 0.900 Normal 0.0-0.9 [facility] Comment on above: Result Comment: IG% - Immature Granulocytes (promyelocytes, myelocytes andmetamyelocytes) > 1% indicates that a LEFT SHIFT is Present. Performed By: #### L 100.0100 ####[facility] [address] [place], [address] Lymphocytes/100 WBC (Bld) 20.9 % Normal 19-41 [facility] Comment on above: Performed By: #### L 100.0100 ####[facility] [address] [place], [address] MCH (RBC) [Entitic mass] 31.8 pg Normal 27.0-32.0 [facility] Comment on above: Performed By: #### L 100.0100 ####[facility] [address] [place], [address] MCHC (RBC) [Mass/Vol] 32.0 g/dL Normal 32-36 [facility] Comment on above: Performed By: #### L 100.0100 ####[facility] [address] [place], [address] MCV (RBC) [Entitic vol] 99.3 fL High 81-99 [facility] Comment on above: Performed By: #### L 100.0100 ####[facility] [address] [place], [address] Monocytes/100 WBC (Bld) 2.5 % Normal 0-[address] [facility] Comment on above: Performed By: #### L 100.0100 ####[facility] [address] [place], [address] Neutrophils/100 WBC (Bld) 74.9 % High 47-70 [facility] Comment on above: Performed By: #### L 100.0100 ####[facility] [address] [place], [address] Nucleated RBC (Bld) [#/Vol] 0.1 10*3/uL Normal 0-5 [facility] Comment on above: Performed By: #### L 100.0100 ####[facility] [address] [place], [address] Platelet mean volume (Bld) [Entitic vol] 9.7 fL Normal 6.2-12.0 [facility] Comment on above: Performed By: #### L 100.0100 ####[facility] [address] [place], [address] Platelets (Bld) [#/Vol] 288 10*3/uL Normal 150-450 [facility] Comment on above: Performed By: #### L 100.0100 ####[facility] [address] [place], [address] RBC (Bld) [#/Vol] 2.96 10*6/uL Low 4.2-5.4 [facility] Comment on above: Performed By: #### L 100.0100 ####[facility] [address] [place], [address] RDW SD 58.4 fl High 35.1-43.9 [facility] Comment on above: Performed By: #### L 100.0100 ####[facility] [address] [place], [address] WBC (Bld) [#/Vol] 15.2 10*3/uL High 4.4-11.0 [facility] Comment on above: Performed By: #### L 100.0100 ####[facility] [address] [place], [address] Absolute Lymph 1.83 X10 3/uL Normal 0.83-4.51 [facility] Comment on above: Performed By: #### L 500.2500, L100.0100 ####[facility] [address] [place], [address] Absolute Neut 2.9 X10 3/uL Normal 2.0-7.7 [facility] Comment on above: Performed By: #### L 500.2500, L100.0100 ####[facility] [address] [place], [address] Basophils/100 WBC (Bld) 0.9 % Normal 0-1 [facility] Comment on above: Performed By: #### L 500.2500, L100.0100 ####[facility] [address] [place], [address] Eosinophils/100 WBC (Bld) 1.9 % Normal 0-5 [facility] Comment on above: Performed By: #### L 500.2500, L100.0100 ####[facility] [address] [place], [address] Erythrocyte distribution width (RBC) [Ratio] 15.5 % High 11.6-14.6 [facility] Comment on above: Performed By: #### L 500.2500, L100.0100 ####[facility] [address] [place], [address] Hematocrit (Bld) [Volume fraction] 37.5 % Normal 37-47 [facility] Comment on above: Performed By: #### L 500.2500, L100.0100 ####[facility] [address] [place], [address] Hemoglobin (Bld) [Mass/Vol] 12.7 g/dL Normal 12.0-15.0 [facility] Comment on above: Performed By: #### L 500.2500, L100.0100 ####[facility] [address] [place], [address] IG% 0.600 Normal 0.0-0.9 [facility] Comment on above: Result Comment: IG% - Immature Granulocytes (promyelocytes, myelocytes andmetamyelocytes) > 1% indicates that a LEFT SHIFT is Present. Performed By: #### L 500.2500, L100.0100 ####[facility] [address] [place], [address] Lymphocytes/100 WBC (Bld) 33.9 % Normal 19-41 [facility] Comment on above: Performed By: #### L 500.2500, L100.0100 ####[facility] [address] [place], [address] MCH (RBC) [Entitic mass] 32.0 pg Normal 27.0-32.0 [facility] Comment on above: Performed By: #### L 500.2500, L100.0100 ####[facility] [address] [place], [address] MCHC (RBC) [Mass/Vol] 33.9 g/dL Normal 32-36 [facility] Comment on above: Performed By: #### L 500.2500, L100.0100 ####[facility] [address] [place], [address] MCV (RBC) [Entitic vol] 94.5 fL Normal 81-99 [facility] Comment on above: Performed By: #### L 500.2500, L100.0100 ####[facility] [address] [place], [address] Monocytes/100 WBC (Bld) 8.3 % Normal 0-[address] [facility] Comment on above: Performed By: #### L 500.2500, L100.0100 ####[facility] [address] [place], [address] Neutrophils/100 WBC (Bld) 54.4 % Normal 47-70 [facility] Comment on above: Performed By: #### L 500.2500, L100.0100 ####[facility] [address] [place], [address] Nucleated RBC (Bld) [#/Vol] 0.4 10*3/uL Normal 0-5 [facility] Comment on above: Performed By: #### L 500.2500, L100.0100 ####[facility] [address] [place], [address] Platelet mean volume (Bld) [Entitic vol] 9.4 fL Normal 6.2-12.0 [facility] Comment on above: Performed By: #### L 500.2500, L100.0100 ####[facility] [address] [place], [address] Platelets (Bld) [#/Vol] 269 10*3/uL Normal 150-450 [facility] Comment on above: Performed By: #### L 500.2500, L100.0100 ####[facility] [address] [place], [address] RBC (Bld) [#/Vol] 3.97 10*6/uL Low 4.2-5.4 [facility] Comment on above: Performed By: #### L 500.2500, L100.0100 ####[facility] [address] [place], [address] RDW SD 53.3 fl High 35.1-43.9 [facility] Comment on above: Performed By: #### L 500.2500, L100.0100 ####[facility] [address] [place], [address] WBC (Bld) [#/Vol] 5.4 10*3/uL Normal 4.4-11.0 [facility] Comment on above: Performed By: #### L 500.2500, L100.0100 ####[facility] [address] [place], [address] MR/POSTOP.ANEon 03-12-2024 MR/POSTOP.ANE Normal [facility] MR/POSTOP.ANE Normal [facility] MR/VWCIQTAK1nl 03-12-2024 MR/POSTOPAN2 Normal [facility] MR/POSTOPAN2 Normal [facility] Operative Reporton Operative Report Normal [facility] Partial Thromboplast Timeon 03-12-2024 aPTT Coag (Bld) [Time] 57.4 s High 24.1-36.2 [facility] Comment on above: Performed By: #### L 300.4310, L300.3900 ####[facility] [address] [place], [address] Prothrombin Time w/INRon INR Coag (PPP) [Relative time] 1.1 {INR} Normal [facility] Comment on above: Performed By: #### L 300.4310, L300.3900 ####[facility] [address] [place], [place], [address] PT Coag (PPP) [Time] 14.3 s Normal 11.7-14.9 [facility] Comment on above: Performed By: #### L 300.4310, L300.3900 ####[facility] [address] [place], [place], [id number] Type AND Screenon 03-12-2024 ABO and Rh group Nom (Bld) Blood group A Rh(D) positive Normal [facility] Comment on above: Order Comment: CMV N EG? NComments: vascular surgery right legIs the EBL >/= 1000ml in adults or >/= 12ml/kg in children?YReason for Ordering Blood: AcuteAre the blood/blood products to be transfused? NIs the patient having/had surgery? YType [id number] Performed By: #### B RC, BTS ####[facility] [address] [place], [place], [id number] Vancomycin, Trough Levelon 05-12-2023 VANCO, TROUGH 17.0 ug/mL High 5.0-15.0 [facility] Comment on above: Order Comment: Comme nts: Trough to be drawn 30 mins prior to scheduled [id number] Result Comment: VANC OMYCIN STANDARED DRUG THERAPY TROUGH LEVEL: 5.0 - 15.0 mg/LVANCOMYCIN HIGH INTENSITY THERAPY TROUGH LEVEL: 15.0 - 20.0 mg/LHigh Intensity therapy recommended for serious lifethreatening infections include:- Wekzleivlj-Wmbqdrzpbbzm-Cctvlnvfv (Ventilator/Healtcare Associated)-SepsisPLEASE CONTACT PHARMACY SERVICES (#5991) FOR INTERPRETATIONOF RESULTS. Performed By: #### L 713.8842 ####[facility] [address] [place], [place], [id number] Bedside Glucoseon 03-11-2024 FINGERSTICK GLU 139 mg/dL High 74-106 [facility] Comment on above: Result Comment: LEVI GEMENT OF PATIENT CARE PER NURSING PROTOCOL Performed By: #### L 501.080 ####[facility] [address] [place], [address] FINGERSTICK GLU 122 mg/dL High 74-106 [facility] Comment on above: Result Comment: LEVI GEMENT OF PATIENT CARE PER NURSING PROTOCOL Performed By: #### L 501.080 ####[facility] [address] [place], [address] FINGERSTICK GLU 145 mg/dL High 74-106 [facility] Comment on above: Result Comment: LEVI GEMENT OF PATIENT CARE PER NURSING PROTOCOL Performed By: #### L 501.080 ####[facility] [address] [place], [address] FINGERSTICK GLU 132 mg/dL High 74-106 [facility] Comment on above: Result Comment: LEVI GEMENT OF PATIENT CARE PER NURSING PROTOCOL Performed By: #### L 501.080 ####[facility] [address] [place], [address] Partial Thromboplast Timeon 03-11-2024 aPTT Coag (Bld) [Time] 68.3 s High 24.1-36.2 [facility] Comment on above: Performed By: #### L 300.9130 ####[facility] [address] [place], [address] aPTT Coag (Bld) [Time] 72.4 s High 24.1-36.2 [facility] Comment on above: Performed By: #### L 300.4310 ####[facility] [address] [place], [address] Prothrombin Time w/INRon INR Coag (PPP) [Relative time] 1.1 {INR} Normal [facility] Comment on above: Performed By: #### L 300.6280 ####[facility] [address] [place], [address] PT Coag (PPP) [Time] 14.3 s Normal 11.7-14.9 [facility] Comment on above: Performed By: #### L 300.3900 ####[facility] [address] [place], [address] Basic Metabolic Profile (BMP )on 03-10-2024 BUN/CRE 14.8 RATIO Normal 10-20 [facility] Comment on above: Performed By: #### L 300.3900, L100.0100, L500.2500 ####[facility] [address] [place], [address] CA,Total 9.1 mg/dL Normal 8.5-10.1 [facility] Comment on above: Performed By: #### L 300.3900, L100.0100, L500.2500 ####[facility] [address] [place], [address] Chloride [Moles/Vol] 111 mmol/L High 98-107 [facility] Comment on above: Performed By: #### L 300.3900, L100.0100, L500.2500 ####[facility] [address] [place], [address] CO2 [Moles/Vol] 21.0 mmol/L Normal 21.0-32.0 [facility] Comment on above: Performed By: #### L 300.3900, L100.0100, L500.2500 ####[facility] [address] [place], [address] Creatinine [Mass/Vol] 1.08 mg/dL High 0.55-1.02 [facility] Comment on above: Result Comment: The validity of the calculated GFR GFRAA in patients over70 years has not been determined. Clinical correlation isessential. Performed By: #### L 300.3900, L100.0100, L500.2500 ####[facility] [address] [place], [address] ECRCL 36.34 ml/min Normal [facility] Comment on above: Performed By: #### L 300.3900, L100.0100, L500.2500 ####[facility] [address] [place], [address] EST GFR - AA 62 mL/min Normal >60 [facility] Comment on above: Result Comment: Afri can Trinidadian GFR Calc Performed By: #### L 300.3900, L100.0100, L500.2500 ####[facility] [address] [place], [address] GAP 7 Normal 5-15 [facility] Comment on above: Performed By: #### L 300.3900, L100.0100, L500.2500 ####[facility] [address] [place], [address] GFR/1.73 sq M.predicted among non-blacks MDRD (S/P/Bld) [Vol rate/Area] 51 mL/min/{1.73_m2} Low >60 [facility] Comment on above: Result Comment: Non- GFR Calc Performed By: #### L 300.3900, L100.0100, L500.2500 ####[facility] [address] [place], [address] Glucose [Mass/Vol] 132 mg/dL High 74-106 [facility] Comment on above: Result Comment: Fast ing Glucose result greater than or equal to 126 mg/dLsuggests DIABETES MELLITUS per A.D.A. criteria. Performed By: #### L 300.3900, L100.0100, L500.2500 ####[facility] [address] [place], [address] Potassium [Moles/Vol] 3.7 mmol/L Normal 3.5-5.1 [facility] Comment on above: Performed By: #### L 300.3900, L100.0100, L500.2500 ####[facility] [address] [place], [address] Sodium [Moles/Vol] 139 mmol/L Normal 136-145 [facility] Comment on above: Performed By: #### L 300.3900, L100.0100, L500.2500 ####[facility] [address] [place], [address] Urea nitrogen [Mass/Vol] 16 mg/dL Normal 7-18 [facility] Comment on above: Performed By: #### L 300.3900, L100.0100, L500.2500 ####[facility] [address] [place], [address] Bedside Glucoseon 03-10-2024 FINGERSTICK GLU 167 mg/dL High 74-106 [facility] Comment on above: Result Comment: LEVI GEMENT OF PATIENT CARE PER NURSING PROTOCOL Performed By: #### L 501.080 ####[facility] [address] [place], [address] FINGERSTICK GLU 104 mg/dL Normal 74-106 [facility] Comment on above: Result Comment: LEVI GEMENT OF PATIENT CARE PER NURSING PROTOCOL Performed By: #### L 501.080 ####[facility] [address] [place], [address] FINGERSTICK GLU 123 mg/dL High 74-106 [facility] Comment on above: Result Comment: LEVI GEMENT OF PATIENT CARE PER NURSING PROTOCOL Performed By: #### L 501.080 ####[facility] [address] [place], [address] FINGERSTICK GLU 121 mg/dL High 74-106 [facility] Comment on above: Result Comment: LEVI GEMENT OF PATIENT CARE PER NURSING PROTOCOL Performed By: #### L 501.080 ####[facility] [address] [place], [address] CBC W/Diff, Automatedon 11-0 Absolute Lymph 2.69 X10 3/uL Normal 0.83-4.51 [facility] Comment on above: Performed By: #### L 300.3900, L100.0100, L500.2500 ####[facility] [address] [place], [address] Absolute Neut 2.1 X10 3/uL Normal 2.0-7.7 [facility] Comment on above: Performed By: #### L 300.3900, L100.0100, L500.2500 ####[facility] [address] [place], [address] Basophils/100 WBC (Bld) 0.9 % Normal 0-1 [facility] Comment on above: Performed By: #### L 300.3900, L100.0100, L500.2500 ####[facility] [address] [place], [address] Eosinophils/100 WBC (Bld) 2.4 % Normal 0-5 [facility] Comment on above: Performed By: #### L 300.3900, L100.0100, L500.2500 ####[facility] [address] [place], [address] Erythrocyte distribution width (RBC) [Ratio] 15.8 % High 11.6-14.6 [facility] Comment on above: Performed By: #### L 300.3900, L100.0100, L500.2500 ####[facility] [address] [place], [address] Hematocrit (Bld) [Volume fraction] 37.4 % Normal 37-47 [facility] Comment on above: Performed By: #### L 300.3900, L100.0100, L500.2500 ####[facility] [address] [place], [address] Hemoglobin (Bld) [Mass/Vol] 12.0 g/dL Normal 12.0-15.0 [facility] Comment on above: Performed By: #### L 300.3900, L100.0100, L500.2500 ####[facility] [address] [place], [address] IG% 0.200 Normal 0.0-0.9 [facility] Comment on above: Result Comment: IG% - Immature Granulocytes (promyelocytes, myelocytes andmetamyelocytes) > 1% indicates that a LEFT SHIFT is Present. Performed By: #### L 300.3900, L100.0100, L500.2500 ####[facility] [address] [place], [address] Lymphocytes/100 WBC (Bld) 49.0 % High 19-41 [facility] Comment on above: Performed By: #### L 300.3900, L100.0100, L500.2500 ####[facility] [address] [place], [address] MCH (RBC) [Entitic mass] 31.3 pg Normal 27.0-32.0 [facility] Comment on above: Performed By: #### L 300.3900, L100.0100, L500.2500 ####[facility] [address] [place], [address] MCHC (RBC) [Mass/Vol] 32.1 g/dL Normal 32-36 [facility] Comment on above: Performed By: #### L 300.3900, L100.0100, L500.2500 ####[facility] [address] [place], [address] MCV (RBC) [Entitic vol] 97.4 fL Normal 81-[address] [facility] Comment on above: Performed By: #### L 300.3900, L100.0100, L500.2500 ####[facility] [address] [place], [address] Monocytes/100 WBC (Bld) 8.9 % Normal 0-10 [facility] Comment on above: Performed By: #### L 300.3900, L100.0100, L500.2500 ####[facility] [address] [place], [address] Neutrophils/100 WBC (Bld) 38.6 % Low 47-70 [facility] Comment on above: Performed By: #### L 300.3900, L100.0100, L500.2500 ####[facility] [address] [place], [address] Nucleated RBC (Bld) [#/Vol] 0.4 10*3/uL Normal 0-5 [facility] Comment on above: Performed By: #### L 300.3900, L100.0100, L500.2500 ####[facility] [address] [place], [address] Platelet mean volume (Bld) [Entitic vol] 9.2 fL Normal 6.2-12.0 [facility] Comment on above: Performed By: #### L 300.3900, L100.0100, L500.2500 ####[facility] [address] [place], [address] Platelets (Bld) [#/Vol] 235 10*3/uL Normal 150-450 [facility] Comment on above: Performed By: #### L 300.3900, L100.0100, L500.2500 ####[facility] [address] [place], [address] RBC (Bld) [#/Vol] 3.84 10*6/uL Low 4.2-5.4 [facility] Comment on above: Performed By: #### L 300.3900, L100.0100, L500.2500 ####[facility] [address] [place], [address] RDW SD 56.7 fl High 35.1-43.9 [facility] Comment on above: Performed By: #### L 300.3900, L100.0100, L500.2500 ####[facility] [address] [place], [address] WBC (Bld) [#/Vol] 5.5 10*3/uL Normal 4.4-11.0 [facility] Comment on above: Performed By: #### L 300.3900, L100.0100, L500.2500 ####[facility] [address] [place], [address] Partial Thromboplast Timeon 03-10-2024 aPTT Coag (Bld) [Time] 82.4 s High 24.1-36.2 [facility] Comment on above: Performed By: #### L 300.4310 ####[facility] [address] [place], [address] aPTT Coag (Bld) [Time] 40.0 s High 24.1-36.2 [facility] Comment on above: Performed By: #### L 300.4310 ####[facility] [address] [place], [address] aPTT Coag (Bld) [Time] 57.4 s High 24.1-36.2 [facility] Comment on above: Performed By: #### L 300.4310 ####[facility] [address] [place], [address] aPTT Coag (Bld) [Time] 70.5 s High 24.1-36.2 [facility] Comment on above: Performed By: #### L 300.4310 ####[facility] [address] [place], [address] Prothrombin Time w/INRon INR Coag (PPP) [Relative time] 1.5 {INR} Normal [facility] Comment on above: Performed By: #### L 300.3900, L100.0100, L500.2500 ####[facility] [address] [place], [address] PT Coag (PPP) [Time] 17.8 s High 11.7-14.9 [facility] Comment on above: Performed By: #### L 300.3900, L100.0100, L500.2500 ####[facility] [address] [place], [address] Vancomycin, Trough Levelon 1 05-10-2023 VANCO, TROUGH 11.8 ug/mL Normal 5.0-15.0 [facility] Comment on above: Order Comment: Comme nts: Trough to be drawn 30 mins prior to scheduled [id number] Result Comment: VANC OMYCIN STANDARED DRUG THERAPY TROUGH LEVEL: 5.0 - 15.0 mg/LVANCOMYCIN HIGH INTENSITY THERAPY TROUGH LEVEL: 15.0 - 20.0 mg/LHigh Intensity therapy recommended for serious lifethreatening infections include:- Pahozqqzco-Kenefxxtftol-Epfrwjbsq (Ventilator/Healtcare Associated)-SepsisPLEASE CONTACT PHARMACY SERVICES (#4287) FOR INTERPRETATIONOF RESULTS. Performed By: #### L 501.2020 ####[facility] [address] [place], [address] Basic Metabolic Profile (BMP )on 03-09-2024 BUN/CRE 17.7 RATIO Normal 10-20 [facility] Comment on above: Performed By: #### L 500.2500, L300.3900, L100.0100 ####[facility] [address] [place], [address] CA,Total 9.2 mg/dL Normal 8.5-10.1 [facility] Comment on above: Performed By: #### L 500.2500, L300.3900, L100.0100 ####[facility] [address] [place], [address] Chloride [Moles/Vol] 112 mmol/L High 98-107 [facility] Comment on above: Performed By: #### L 500.2500, L300.3900, L100.0100 ####[facility] [address] [place], [address] CO2 [Moles/Vol] 20.0 mmol/L Low 21.0-32.0 [facility] Comment on above: Performed By: #### L 500.2500, L300.3900, L100.0100 ####[facility] [address] [place], [address] Creatinine [Mass/Vol] 0.96 mg/dL Normal 0.55-1.02 [facility] Comment on above: Result Comment: The validity of the calculated GFR GFRAA in patients over70 years has not been determined. Clinical correlation isessential. Performed By: #### L 500.2500, L300.3900, L100.0100 ####[facility] [address] [place], [address] ECRCL 40.27 ml/min Normal [facility] Comment on above: Performed By: #### L 500.2500, L300.3900, L100.0100 ####[facility] [address] [place], [address] EST GFR - AA 71 mL/min Normal >60 [facility] Comment on above: Result Comment: Afri can Trinid[place] GFR Calc Performed By: #### L 500.2500, L300.3900, L100.0100 ####[facility] [address] [place], [address] GAP 9 Normal 5-15 [facility] Comment on above: Performed By: #### L 500.2500, L300.3900, L100.0100 ####[facility] [address] [place], [address] GFR/1.73 sq M.predicted among non-blacks MDRD (S/P/Bld) [Vol rate/Area] 59 mL/min/{1.73_m2} Low >60 [facility] Comment on above: Result Comment: Non- GFR Calc Performed By: #### L 500.2500, L300.3900, L100.0100 ####[facility] [address] [place], [address] Glucose [Mass/Vol] 118 mg/dL High 74-106 [facility] Comment on above: Result Comment: Fast ing Glucose result from 100 to 125 mg/dLsuggests IMPAIRED HOMEOSTASIS per A.D.A. criteria. Performed By: #### L 500.2500, L300.3900, L100.0100 ####[facility] [address] [place], [address] Potassium [Moles/Vol] 3.7 mmol/L Normal 3.5-5.1 [facility] Comment on above: Performed By: #### L 500.2500, L300.3900, L100.0100 ####[facility] [address] [place], [address] Sodium [Moles/Vol] 140 mmol/L Normal 136-145 [facility] Comment on above: Performed By: #### L 500.2500, L300.3900, L100.0100 ####[facility] [address] [place], [address] Urea nitrogen [Mass/Vol] 17 mg/dL Normal 7-18 [facility] Comment on above: Performed By: #### L 500.2500, L300.3900, L100.0100 ####[facility] [address] [place], [address] BUN Normal 7-18 [facility] Comment on above: Result Comment: Canc elled via OM: Order cancelled - Patient discharged Performed By: #### L 500.2500 ####[facility] [address] [place], [address] BUN/CRE Normal 10-20 [facility] Comment on above: Result Comment: Canc elled via OM: Order cancelled - Patient discharged Performed By: #### L 500.2500 ####[facility] [address] [place], [address] CA,Total Normal 8.5-10.1 [facility] Comment on above: Result Comment: Canc elled via OM: Order cancelled - Patient discharged Performed By: #### L 500.2500 ####[facility] [address] [place], [address] CL Normal 98-107 [facility] Comment on above: Result Comment: Canc elled via OM: Order cancelled - Patient discharged Performed By: #### L 500.2500 ####[facility] [address] [place], [address] CO2 Normal 21.0-32.0 [facility] Comment on above: Result Comment: Canc elled via OM: Order cancelled - Patient discharged Performed By: #### L 500.2500 ####[facility] [address] [place], [address] CREAT,SERUM Normal 0.55-1.02 [facility] Comment on above: Result Comment: Canc elled via OM: Order cancelled - Patient discharged Performed By: #### L 500.2500 ####[facility] [address] [place], [address] EST GFR Normal >60 [facility] Comment on above: Result Comment: Canc elled via OM: Order cancelled - Patient discharged Performed By: #### L 500.2500 ####[facility] [address] [place], [address] EST GFR - AA Normal >60 [facility] Comment on above: Result Comment: Canc elled via OM: Order cancelled - Patient discharged Performed By: #### L 500.2500 ####[facility] [address] [place], [address] GAP Normal 5-15 [facility] Comment on above: Result Comment: Canc elled via OM: Order cancelled - Patient discharged Performed By: #### L 500.2500 ####[facility] [address] [place], [address] GLU Normal 74-106 [facility] Comment on above: Result Comment: Canc elled via OM: Order cancelled - Patient discharged Performed By: #### L 500.2500 ####[facility] [address] [place], [address] Potassium Normal 3.5-5.1 [facility] Comment on above: Result Comment: Canc elled via OM: Order cancelled - Patient discharged Performed By: #### L 500.2500 ####[facility] [address] [place], [address] Basic Metabolic Profile (BMP) Normal 136-145 [facility] Comment on above: Result Comment: Canc elled via OM: Order cancelled - Patient discharged Performed By: #### L 500.2500 ####[facility] [address] [place], [address] Bedside Glucoseon 03-09-2024 FINGERSTICK GLU 102 mg/dL Normal 74-106 [facility] Comment on above: Result Comment: LEVI GEMENT OF PATIENT CARE PER NURSING PROTOCOL Performed By: #### L 501.080 ####[facility] [address] [place], [address] FINGERSTICK GLU 126 mg/dL High 74-106 [facility] Comment on above: Result Comment: LEVI GEMENT OF PATIENT CARE PER NURSING PROTOCOL Performed By: #### L 501.080 ####[facility] [address] [place], [address] FINGERSTICK GLU 140 mg/dL High 74-106 [facility] Comment on above: Result Comment: LEVI GEMENT OF PATIENT CARE PER NURSING PROTOCOL Performed By: #### L 501.080 ####[facility] [address] [place], [address] FINGERSTICK GLU 107 mg/dL High 74-106 [facility] Comment on above: Result Comment: LEVI GEMENT OF PATIENT CARE PER NURSING PROTOCOL Performed By: #### L 501.080 ####[facility] [address] [place], [address] CBC W/Diff, Automatedon 11-0 8-2023 Absolute Lymph 1.71 X10 3/uL Normal 0.83-4.51 [facility] Comment on above: Performed By: #### L 500.2500, L300.3900, L100.0100 ####[facility] [address] [place], [address] Absolute Neut 2.5 X10 3/uL Normal 2.0-7.7 [facility] Comment on above: Performed By: #### L 500.2500, L300.3900, L100.0100 ####[facility] [address] [place], [address] Basophils/100 WBC (Bld) 0.6 % Normal 0-1 [facility] Comment on above: Performed By: #### L 500.2500, L300.3900, L100.0100 ####[facility] [address] [place], [address] Eosinophils/100 WBC (Bld) 2.4 % Normal 0-5 [facility] Comment on above: Performed By: #### L 500.2500, L300.3900, L100.0100 ####[facility] [address] [place], [address] Erythrocyte distribution width (RBC) [Ratio] 15.9 % High 11.6-14.6 [facility] Comment on above: Performed By: #### L 500.2500, L300.3900, L100.0100 ####[facility] [address] [place], [address] Hematocrit (Bld) [Volume fraction] 35.6 % Low 37-47 [facility] Comment on above: Performed By: #### L 500.2500, L300.3900, L100.0100 ####[facility] [address] [place], [address] Hemoglobin (Bld) [Mass/Vol] 11.7 g/dL Low 12.0-15.0 [facility] Comment on above: Performed By: #### L 500.2500, L300.3900, L100.0100 ####[facility] [address] [place], [address] IG% 0.200 Normal 0.0-0.9 [facility] Comment on above: Result Comment: IG% - Immature Granulocytes (promyelocytes, myelocytes andmetamyelocytes) > 1% indicates that a LEFT SHIFT is Present. Performed By: #### L 500.2500, L300.3900, L100.0100 ####[facility] [address] [place], [address] Lymphocytes/100 WBC (Bld) 34.8 % Normal 19-41 [facility] Comment on above: Performed By: #### L 500.2500, L300.3900, L100.0100 ####[facility] [address] [place], [address] MCH (RBC) [Entitic mass] 31.7 pg Normal 27.0-32.0 [facility] Comment on above: Performed By: #### L 500.2500, L300.3900, L100.0100 ####[facility] [address] [place], [address] MCHC (RBC) [Mass/Vol] 32.9 g/dL Normal 32-36 [facility] Comment on above: Performed By: #### L 500.2500, L300.3900, L100.0100 ####[facility] [address] [place], [address] MCV (RBC) [Entitic vol] 96.5 fL Normal 81-[address] [facility] Comment on above: Performed By: #### L 500.2500, L300.3900, L100.0100 ####[facility] [address] [place], [address] Monocytes/100 WBC (Bld) 11.8 % High 0-[address] [facility] Comment on above: Performed By: #### L 500.2500, L300.3900, L100.0100 ####[facility] [address] [place], [address] Neutrophils/100 WBC (Bld) 50.2 % Normal 47-70 [facility] Comment on above: Performed By: #### L 500.2500, L300.3900, L100.0100 ####[facility] [address] [place], [address] Nucleated RBC (Bld) [#/Vol] 0 10*3/uL Normal 0-5 [facility] Comment on above: Performed By: #### L 500.2500, L300.3900, L100.0100 ####[facility] [address] [place], [address] Platelet mean volume (Bld) [Entitic vol] 9.7 fL Normal 6.2-12.0 [facility] Comment on above: Performed By: #### L 500.2500, L300.3900, L100.0100 ####[facility] [address] [place], [address] Platelets (Bld) [#/Vol] 230 10*3/uL Normal 150-450 [facility] Comment on above: Performed By: #### L 500.2500, L300.3900, L100.0100 ####[facility] [address] [place], [address] RBC (Bld) [#/Vol] 3.69 10*6/uL Low 4.2-5.4 [facility] Comment on above: Performed By: #### L 500.2500, L300.3900, L100.0100 ####[facility] [address] [place], [address] RDW SD 56.4 fl High 35.1-43.9 [facility] Comment on above: Performed By: #### L 500.2500, L300.3900, L100.0100 ####[facility] [address] [place], [address] WBC (Bld) [#/Vol] 4.9 10*3/uL Normal 4.4-11.0 [facility] Comment on above: Performed By: #### L 500.2500, L300.3900, L100.0100 ####[facility] [address] [place], [address] Absolute Neut Normal 2.0-7.7 [facility] Comment on above: Result Comment: Canc elled via OM: Order cancelled - Patient discharged Performed By: #### L 100.0100 ####[facility] [address] [place], [address] HCT Normal 37-47 [facility] Comment on above: Result Comment: Canc elled via OM: Order cancelled - Patient discharged Performed By: #### L 100.0100 ####[facility] [address] [place], [address] HGB Normal 12.0-15.0 [facility] Comment on above: Result Comment: Canc elled via OM: Order cancelled - Patient discharged Performed By: #### L 100.0100 ####[facility] [address] [place], [address] MCH Normal 27.0-32.0 [facility] Comment on above: Result Comment: Canc elled via OM: Order cancelled - Patient discharged Performed By: #### L 100.0100 ####[facility] [address] [place], [address] MCHC Normal 32-36 [facility] Comment on above: Result Comment: Canc elled via OM: Order cancelled - Patient discharged Performed By: #### L 100.0100 ####[facility] [address] [place], [address] MCV Normal 81-99 [facility] Comment on above: Result Comment: Canc elled via OM: Order cancelled - Patient discharged Performed By: #### L 100.0100 ####[facility] [address] [place], [address] NEUT% Normal 47-70 [facility] Comment on above: Result Comment: Canc elled via OM: Order cancelled - Patient discharged Performed By: #### L 100.0100 ####[facility] [address] [place], [address] PLT Normal 150-450 [facility] Comment on above: Result Comment: Canc elled via OM: Order cancelled - Patient discharged Performed By: #### L 100.0100 ####[facility] [address] [place], [address] RBC Normal 4.2-5.4 [facility] Comment on above: Result Comment: Canc elled via OM: Order cancelled - Patient discharged Performed By: #### L 100.0100 ####[facility] [address] [place], [address] RDW CV Normal 11.6-14.6 [facility] Comment on above: Result Comment: Canc elled via OM: Order cancelled - Patient discharged Performed By: #### L 100.0100 ####[facility] [address] [place], [address] RDW SD Normal 35.1-43.9 [facility] Comment on above: Result Comment: Canc elled via OM: Order cancelled - Patient discharged Performed By: #### L 100.0100 ####[facility] [address] [place], [address] WBC Normal 4.4-11.0 [facility] Comment on above: Result Comment: Canc elled via OM: Order cancelled - Patient discharged Performed By: #### L 100.0100 ####[facility] [address] [place], [address] Consultation - Infectious Dx on 03-09-2024 Consultation - Infectious Dx Normal [facility] Partial Thromboplast Timeon 03-09-2024 aPTT Coag (Bld) [Time] 116.2 s Invalid Interpretation Code 24.1-36.2 [facility] Comment on above: Order Comment: Comme nts: time sensitive hep gtt Result Comment: CRIT ICAL VALUE CALLED TO HERMELINDA BHATTI03/09/24 2100 Annel Kisha Glory.RESULTS READ BACK BY SAME. Performed By: #### L 300.4310 ####[facility] [address] [place], [address] aPTT Coag (Bld) [Time] 36.0 s Normal 24.1-36.2 [facility] Comment on above: Performed By: #### L 300.4310 ####[facility] [address] [place], [address] Prothrombin Time w/INRon INR Coag (PPP) [Relative time] 2.2 {INR} Normal [facility] Comment on above: Performed By: #### L 500.2500, L300.3900, L100.0100 ####[facility] [address] [place], [address] PT Coag (PPP) [Time] 24.6 s High 11.7-14.9 [facility] Comment on above: Performed By: #### L 500.2500, L300.3900, L100.0100 ####[facility] [address] [place], [address] 12 Lead EKGon 03-08-2024 12 Lead EKG Normal [facility] Basic Metabolic Profile (BMP )on 03-08-2024 BUN Normal 7-18 [facility] Comment on above: Result Comment: CMP ALREADY ORDERED FOR MORNING RUN Performed By: #### L 500.2500 ####[facility] [address] [place], [address] BUN/CRE Normal 10-20 [facility] Comment on above: Result Comment: CMP ALREADY ORDERED FOR MORNING RUN Performed By: #### L 500.2500 ####[facility] [address] [place], [address] CA,Total Normal 8.5-10.1 [facility] Comment on above: Result Comment: CMP ALREADY ORDERED FOR MORNING RUN Performed By: #### L 500.2500 ####[facility] [address] [place], [address] CL Normal 98-107 [facility] Comment on above: Result Comment: CMP ALREADY ORDERED FOR MORNING RUN Performed By: #### L 500.2500 ####[facility] [address] [place], [address] CO2 Normal 21.0-32.0 [facility] Comment on above: Result Comment: CMP ALREADY ORDERED FOR MORNING RUN Performed By: #### L 500.2500 ####[facility] [address] [place], [address] CREAT,SERUM Normal 0.55-1.02 [facility] Comment on above: Result Comment: CMP ALREADY ORDERED FOR MORNING RUN Performed By: #### L 500.2500 ####[facility] [address] [place], [address] EST GFR Normal >60 [facility] Comment on above: Result Comment: CMP ALREADY ORDERED FOR MORNING RUN Performed By: #### L 500.2500 ####[facility] [address] [place], [address] EST GFR - AA Normal >60 [facility] Comment on above: Result Comment: CMP ALREADY ORDERED FOR MORNING RUN Performed By: #### L 500.2500 ####[facility] [address] [place], [address] GAP Normal 5-15 [facility] Comment on above: Result Comment: CMP ALREADY ORDERED FOR MORNING RUN Performed By: #### L 500.2500 ####[facility] [address] [place], [address] GLU Normal 74-106 [facility] Comment on above: Result Comment: CMP ALREADY ORDERED FOR MORNING RUN Performed By: #### L 500.2500 ####[facility] [address] [place], [address] Potassium Normal 3.5-5.1 [facility] Comment on above: Result Comment: CMP ALREADY ORDERED FOR MORNING RUN Performed By: #### L 500.2500 ####[facility] [address] [place], [address] Basic Metabolic Profile (BMP) Normal 136-145 [facility] Comment on above: Result Comment: CMP ALREADY ORDERED FOR MORNING RUN Performed By: #### L 500.2500 ####[facility] [address] [place], [address] Bedside Glucoseon 03-08-2024 FINGERSTICK GLU 143 mg/dL High 74-106 [facility] Comment on above: Result Comment: LEVI HYDE OF PATIENT CARE PER NURSING PROTOCOL Performed By: #### L 501.080 ####[facility] [address] [place], [address] FINGERSTICK GLU 135 mg/dL High 74-106 [facility] Comment on above: Result Comment: LEVI GEMENT OF PATIENT CARE PER NURSING PROTOCOL Performed By: #### L 501.080 ####[facility] [address] [place], [address] FINGERSTICK GLU 107 mg/dL High 74-106 [facility] Comment on above: Result Comment: LEVI GEMENT OF PATIENT CARE PER NURSING PROTOCOL Performed By: #### L 501.080 ####[facility] [address] [place], [address] CBC W/Diff, Automatedon 11-0 7-2023 Absolute Lymph 1.74 X10 3/uL Normal 0.83-4.51 [facility] Comment on above: Performed By: #### L 501.9985, L501.9520, L501.2300, L500.4050, L100.0100, L501.5200 ####[facility] [address] [place], [address] Absolute Neut 2.3 X10 3/uL Normal 2.0-7.7 [facility] Comment on above: Performed By: #### L 501.9985, L501.9520, L501.2300, L500.4050, L100.0100, L501.5200 ####[facility] [address] [place], [address] Basophils/100 WBC (Bld) 0.7 % Normal 0-1 [facility] Comment on above: Performed By: #### L 501.9985, L501.9520, L501.2300, L500.4050, L100.0100, L501.5200 ####[facility] [address] [place], [address] Eosinophils/100 WBC (Bld) 2.4 % Normal 0-5 [facility] Comment on above: Performed By: #### L 501.9985, L501.9520, L501.2300, L500.4050, L100.0100, L501.5200 ####[facility] [address] [place], [address] Erythrocyte distribution width (RBC) [Ratio] 15.6 % High 11.6-14.6 [facility] Comment on above: Performed By: #### L 501.9985, L501.9520, L501.2300, L500.4050, L100.0100, L501.5200 ####[facility] [address] [place], [address] Hematocrit (Bld) [Volume fraction] 34.1 % Low 37-47 [facility] Comment on above: Performed By: #### L 501.9985, L501.9520, L501.2300, L500.4050, L100.0100, L501.5200 ####[facility] [address] [place], [address] Hemoglobin (Bld) [Mass/Vol] 10.7 g/dL Low 12.0-15.0 [facility] Comment on above: Performed By: #### L 501.9985, L501.9520, L501.2300, L500.4050, L100.0100, L501.5200 ####[facility] [address] [place], [address] IG% 0.400 Normal 0.0-0.9 [facility] Comment on above: Result Comment: IG% - Immature Granulocytes (promyelocytes, myelocytes andmetamyelocytes) > 1% indicates that a LEFT SHIFT is Present. Performed By: #### L 501.9985, L501.9520, L501.2300, L500.4050, L100.0100, L501.5200 ####[facility] [address] [place], [address] Lymphocytes/100 WBC (Bld) 37.9 % Normal 19-41 [facility] Comment on above: Performed By: #### L 501.9985, L501.9520, L501.2300, L500.4050, L100.0100, L501.5200 ####[facility] [address] [place], [address] MCH (RBC) [Entitic mass] 31.0 pg Normal 27.0-32.0 [facility] Comment on above: Performed By: #### L 501.9985, L501.9520, L501.2300, L500.4050, L100.0100, L501.5200 ####[facility] [address] [place], [address] MCHC (RBC) [Mass/Vol] 31.4 g/dL Low 32-36 [facility] Comment on above: Performed By: #### L 501.9985, L501.9520, L501.2300, L500.4050, L100.0100, L501.5200 ####[facility] [address] [place], [address] MCV (RBC) [Entitic vol] 98.8 fL Normal 81-99 [facility] Comment on above: Performed By: #### L 501.9985, L501.9520, L501.2300, L500.4050, L100.0100, L501.5200 ####[facility] [address] [place], [address] Monocytes/100 WBC (Bld) 9.4 % Normal 0-10 [facility] Comment on above: Performed By: #### L 501.9985, L501.9520, L501.2300, L500.4050, L100.0100, L501.5200 ####[facility] [address] [place], [address] Neutrophils/100 WBC (Bld) 49.2 % Normal 47-70 [facility] Comment on above: Performed By: #### L 501.9985, L501.9520, L501.2300, L500.4050, L100.0100, L501.5200 ####[facility] [address] [place], [address] Nucleated RBC (Bld) [#/Vol] 0 10*3/uL Normal 0-5 [facility] Comment on above: Performed By: #### L 501.9985, L501.9520, L501.2300, L500.4050, L100.0100, L501.5200 ####[facility] [address] [place], [address] Platelet mean volume (Bld) [Entitic vol] 10.1 fL Normal 6.2-12.0 [facility] Comment on above: Performed By: #### L 501.9985, L501.9520, L501.2300, L500.4050, L100.0100, L501.5200 ####[facility] [address] [place], [address] Platelets (Bld) [#/Vol] 228 10*3/uL Normal 150-450 [facility] Comment on above: Performed By: #### L 501.9985, L501.9520, L501.2300, L500.4050, L100.0100, L501.5200 ####[facility] [address] [place], [address] RBC (Bld) [#/Vol] 3.45 10*6/uL Low 4.2-5.4 [facility] Comment on above: Performed By: #### L 501.9985, L501.9520, L501.2300, L500.4050, L100.0100, L501.5200 ####[facility] [address] [place], [address] RDW SD 56.7 fl High 35.1-43.9 [facility] Comment on above: Performed By: #### L 501.9985, L501.9520, L501.2300, L500.4050, L100.0100, L501.5200 ####[facility] [address] [place], [address] WBC (Bld) [#/Vol] 4.6 10*3/uL Normal 4.4-11.0 [facility] Comment on above: Performed By: #### L 501.9985, L501.9520, L501.2300, L500.4050, L100.0100, L501.5200 ####[facility] [address] [place], [address] CPK Total, Creatine Kinaseon 03-08-2024 CPK TOTAL 47 U/L Normal 26-192 [facility] Comment on above: Performed By: #### L 501.3620 ####[facility] [address] [place], [address] Comprehensive Metabolic Prof ilon 03-08-2024 Albumin [Mass/Vol] 2.9 g/dL Low 3.2-5.0 [facility] Comment on above: Performed By: #### L 501.9985, L501.9520, L501.2300, L500.4050, L100.0100, L501.5200 ####[facility] [address] [place], [address] Albumin/Globulin [Mass ratio] 0.9 {ratio} Normal 0.9-2.4 [facility] Comment on above: Performed By: #### L 501.9985, L501.9520, L501.2300, L500.4050, L100.0100, L501.5200 ####[facility] [address] [place], [address] ALK P 52 U/L Normal 45-117 [facility] Comment on above: Performed By: #### L 501.9985, L501.9520, L501.2300, L500.4050, L100.0100, L501.5200 ####[facility] [address] [place], [address] ALT [Catalytic activity/Vol] 37 U/L Normal 13-56 [facility] Comment on above: Performed By: #### L 501.9985, L501.9520, L501.2300, L500.4050, L100.0100, L501.5200 ####[facility] [address] [place], [address] AST [Catalytic activity/Vol] 33 U/L Normal 15-37 [facility] Comment on above: Performed By: #### L 501.9985, L501.9520, L501.2300, L500.4050, L100.0100, L501.5200 ####[facility] [address] [place], [address] Bilirubin [Mass/Vol] 0.30 mg/dL Normal 0.20-1.00 [facility] Comment on above: Result Comment: For patients on eltrombopag therapy, use of Dimension [place] TBIL is not recommended. Performed By: #### L 501.9985, L501.9520, L501.2300, L500.4050, L100.0100, L501.5200 ####[facility] [address] [place], [address] BUN/CRE 32.4 RATIO High 10-20 [facility] Comment on above: Performed By: #### L 501.9985, L501.9520, L501.2300, L500.4050, L100.0100, L501.5200 ####[facility] [address] [place], [address] CA,Total 8.5 mg/dL Normal 8.5-10.1 [facility] Comment on above: Performed By: #### L 501.9985, L501.9520, L501.2300, L500.4050, L100.0100, L501.5200 ####[facility] [address] [place], [address] Chloride [Moles/Vol] 111 mmol/L High 98-107 [facility] Comment on above: Performed By: #### L 501.9985, L501.9520, L501.2300, L500.4050, L100.0100, L501.5200 ####[facility] [address] [place], [address] CO2 [Moles/Vol] 23.0 mmol/L Normal 21.0-32.0 [facility] Comment on above: Performed By: #### L 501.9985, L501.9520, L501.2300, L500.4050, L100.0100, L501.5200 ####[facility] [address] [place], [address] Creatinine [Mass/Vol] 1.02 mg/dL Normal 0.55-1.02 [facility] Comment on above: Result Comment: The validity of the calculated GFR GFRAA in patients over70 years has not been determined. Clinical correlation isessential. Performed By: #### L 501.9985, L501.9520, L501.2300, L500.4050, L100.0100, L501.5200 ####[facility] [address] [place], [address] ECRCL 37.69 ml/min Normal [facility] Comment on above: Performed By: #### L 501.9985, L501.9520, L501.2300, L500.4050, L100.0100, L501.5200 ####[facility] [address] [place], [address] EST GFR - AA 66 mL/min Normal >60 [facility] Comment on above: Result Comment: Afri can [place] GFR Calc Performed By: #### L 501.9985, L501.9520, L501.2300, L500.4050, L100.0100, L501.5200 ####[facility] [address] [place], [address] GAP 5 Normal 5-15 [facility] Comment on above: Performed By: #### L 501.9985, L501.9520, L501.2300, L500.4050, L100.0100, L501.5200 ####[facility] [address] [place], [address] GFR/1.73 sq M.predicted among non-blacks MDRD (S/P/Bld) [Vol rate/Area] 55 mL/min/{1.73_m2} Low >60 [facility] Comment on above: Result Comment: Non- GFR Calc Performed By: #### L 501.9985, L501.9520, L501.2300, L500.4050, L100.0100, L501.5200 ####[facility] [address] [place], [address] Globulin (S) [Mass/Vol] 3.2 g/dL Normal 2.2-4.[address] [facility] Comment on above: Performed By: #### L 501.9985, L501.9520, L501.2300, L500.4050, L100.0100, L501.5200 ####[facility] [address] [place], [address] Glucose [Mass/Vol] 91 mg/dL Normal 74-106 [facility] Comment on above: Performed By: #### L 501.9985, L501.9520, L501.2300, L500.4050, L100.0100, L501.5200 ####[facility] [address] [place], [address] Potassium [Moles/Vol] 3.6 mmol/L Normal 3.5-5.1 [facility] Comment on above: Performed By: #### L 501.9985, L501.9520, L501.2300, L500.4050, L100.0100, L501.5200 ####[facility] [address] [place], [address] Sodium [Moles/Vol] 139 mmol/L Normal 136-145 [facility] Comment on above: Performed By: #### L 501.9985, L501.9520, L501.2300, L500.4050, L100.0100, L501.5200 ####[facility] [address] [place], [address] T PROT 6.1 g/dL Low 6.4-8.2 [facility] Comment on above: Performed By: #### L 501.9985, L501.9520, L501.2300, L500.4050, L100.0100, L501.5200 ####[facility] [address] [place], [address] Urea nitrogen [Mass/Vol] 33 mg/dL High 7-18 [facility] Comment on above: Performed By: #### L 501.9985, L501.9520, L501.2300, L500.4050, L100.0100, L501.5200 ####[facility] [address] [place], [address] Consultation - Surgicalon Consultation - Surgical Normal [facility] Hemoglobin A1con 11-07-2024 HbA1c (Bld) [Mass fraction] 5.7 % High 3.8-5.6 [facility] Comment on above: Result Comment: Norm al < 5.7 % Prediabetic 5.7 - 6.4 % Diabetic >or= 6.5 % Please note range changes. Performed By: #### L 501.9985, L501.9520, L501.2300, L500.4050, L100.0100, L501.5200 ####[facility] [address] [place], [address] Lower Ext/No Jt/w/oon 2023 Lower Ext/No Jt/w/o Normal [facility] Magnesiumon 03-08-2024 Magnesium [Mass/Vol] 2.3 mg/dL Normal 1.6-2.6 [facility] Comment on above: Performed By: #### L 501.9985, L501.9520, L501.2300, L500.4050, L100.0100, L501.5200 ####[facility] [address] [place], [address] Partial Thromboplast Timeon 03-08-2024 aPTT Coag (Bld) [Time] 64.8 s High 24.1-36.2 [facility] Comment on above: Order Comment: CRITI SUSAN VALUE CALLED TO JOSE CARNES03/08/24 0711 Betty Bacon.RESULTS READ BACK BY SAME. Performed By: #### L 300.3900, L300.4310 ####[facility] [address] [place], [address] Phosphoruson 03-08-2024 Phosphate [Mass/Vol] 4.1 mg/dL Normal 2.5-4.9 [facility] Comment on above: Performed By: #### L 501.9985, L501.9520, L501.2300, L500.4050, L100.0100, L501.5200 ####[facility] [address] [place], [address] Prothrombin Time w/INRon INR Coag (PPP) [Relative time] 4.7 {INR} Invalid Interpretation Code [facility] Comment on above: Order Comment: CRITI SUSAN VALUE CALLED TO JOSE HOUSTON03/08/24 0711 Betty Bacon.RESULTS READ BACK BY SAME. Performed By: #### L 300.3900, L300.4310 ####[facility] [address] [place], [address] PT Coag (PPP) [Time] 43.5 s High 11.7-14.9 [facility] Comment on above: Order Comment: CRITI SUSAN VALUE CALLED TO JOSE CARNES03/08/24 [facility] Betty Bacon.RESULTS READ BACK BY SAME. Performed By: #### L 300.3900, L300.4310 ####[facility] [address] [place], [address] INR Coag (PPP) [Relative time] 4.6 {INR} Invalid Interpretation Code [facility] Comment on above: Result Comment: CRIT ICAL VALUE CALLED TO CJHYFQKZ02/07/24 0102 Arely Minaya.RESULTS READ BACK BY SAME. Performed By: #### L 300.3900 ####[facility] [address] [place], [address] PT Coag (PPP) [Time] 42.9 s High 11.7-14.9 [facility] Comment on above: Performed By: #### L 300.3900 ####[facility] [address] [place], [address] Thyroid Stim Hormone (TSH)on 03-08-2024 TSH 5.590 uIU/mL High 0.358-3.740 [facility] Comment on above: Performed By: #### L 501.9985, L501.9520, L501.2300, L500.4050, L100.0100, L501.5200 ####[facility] [address] [place], [address] Type AND Screenon 03-08-2024 ABO and Rh group Nom (Bld) Blood group A Rh(D) positive Normal [facility] Comment on above: Order Comment: S Performed By: #### B TS ####[facility] [address] [place], [address] US Art Duplex Unilat Lower E xton 03-08-2024 US Art Duplex Unilat Lower Ext Normal [facility] Basic Metabolic Profile (BMP )on 03-07-2024 BUN/CRE 35.3 RATIO High 10-20 [facility] Comment on above: Performed By: #### L 100.0100, L501.6710, L500.2500, L101.9900 ####[facility] [address] [place], [address] CA,Total 9.3 mg/dL Normal 8.5-10.1 [facility] Comment on above: Performed By: #### L 100.0100, L501.6710, L500.2500, L101.9900 ####[facility] [address] [place], [address] Chloride [Moles/Vol] 106 mmol/L Normal 98-107 [facility] Comment on above: Performed By: #### L 100.0100, L501.6710, L500.2500, L101.9900 ####[facility] [address] [place], [address] CO2 [Moles/Vol] 25.0 mmol/L Normal 21.0-32.0 [facility] Comment on above: Performed By: #### L 100.0100, L501.6710, L500.2500, L101.9900 ####[facility] [address] [place], [address] Creatinine [Mass/Vol] 1.16 mg/dL High 0.55-1.02 [facility] Comment on above: Result Comment: The validity of the calculated GFR GFRAA in patients over70 years has not been determined. Clinical correlation isessential. Performed By: #### L 100.0100, L501.6710, L500.2500, L101.9900 ####[facility] [address] [place], [address] ECRCL 32.94 ml/min Normal [facility] Comment on above: Performed By: #### L 100.0100, L501.6710, L500.2500, L101.9900 ####[facility] [address] [place], [address] EST GFR - AA 57 mL/min Low >60 [facility] Comment on above: Result Comment: Afri can Trinid[place] GFR Calc Performed By: #### L 100.0100, L501.6710, L500.2500, L101.9900 ####[facility] [address] [place], [address] GAP 7 Normal 5-15 [facility] Comment on above: Performed By: #### L 100.0100, L501.6710, L500.2500, L101.9900 ####[facility] [address] [place], [address] GFR/1.73 sq M.predicted among non-blacks MDRD (S/P/Bld) [Vol rate/Area] 47 mL/min/{1.73_m2} Low >60 [facility] Comment on above: Result Comment: Non- GFR Calc Performed By: #### L 100.0100, L501.6710, L500.2500, L101.9900 ####[facility] [address] [place], [address] Glucose [Mass/Vol] 150 mg/dL High 74-106 [facility] Comment on above: Result Comment: Fast ing Glucose result greater than or equal to 126 mg/dLsuggests DIABETES MELLITUS per A.D.A. criteria. Performed By: #### L 100.0100, L501.6710, L500.2500, L101.9900 ####[facility] [address] [place], [address] Potassium [Moles/Vol] 3.8 mmol/L Normal 3.5-5.1 [facility] Comment on above: Performed By: #### L 100.0100, L501.6710, L500.2500, L101.9900 ####[facility] [address] [place], [address] Sodium [Moles/Vol] 138 mmol/L Normal 136-145 [facility] Comment on above: Performed By: #### L 100.0100, L501.6710, L500.2500, L101.9900 ####[facility] [address] [place], [address] Urea nitrogen [Mass/Vol] 41 mg/dL High 7-18 [facility] Comment on above: Performed By: #### L 100.0100, L501.6710, L500.2500, L101.9900 ####[facility] [address] [place], [address] CBC W/Diff, Automatedon 11-0 6-2023 Absolute Lymph 1.80 X10 3/uL Normal 0.83-4.51 [facility] Comment on above: Performed By: #### L 100.0100, L501.6710, L500.2500, L101.9900 ####[facility] [address] [place], [address] Absolute Neut 2.6 X10 3/uL Normal 2.0-7.7 [facility] Comment on above: Performed By: #### L 100.0100, L501.6710, L500.2500, L101.9900 ####[facility] [address] [place], [address] Basophils/100 WBC (Bld) 0.4 % Normal 0-1 [facility] Comment on above: Performed By: #### L 100.0100, L501.6710, L500.2500, L101.9900 ####[facility] [address] [place], [address] Eosinophils/100 WBC (Bld) 1.6 % Normal 0-5 [facility] Comment on above: Performed By: #### L 100.0100, L501.6710, L500.2500, L101.9900 ####[facility] [address] [place], [address] Erythrocyte distribution width (RBC) [Ratio] 15.9 % High 11.6-14.6 [facility] Comment on above: Performed By: #### L 100.0100, L501.6710, L500.2500, L101.9900 ####[facility] [address] [place], [address] Hematocrit (Bld) [Volume fraction] 37.6 % Normal 37-47 [facility] Comment on above: Performed By: #### L 100.0100, L501.6710, L500.2500, L101.9900 ####[facility] [address] [place], [address] Hemoglobin (Bld) [Mass/Vol] 12.3 g/dL Normal 12.0-15.0 [facility] Comment on above: Performed By: #### L 100.0100, L501.6710, L500.2500, L101.9900 ####[facility] [address] [place], [address] IG% 0.200 Normal 0.0-0.9 [facility] Comment on above: Result Comment: IG% - Immature Granulocytes (promyelocytes, myelocytes andmetamyelocytes) > 1% indicates that a LEFT SHIFT is Present. Performed By: #### L 100.0100, L501.6710, L500.2500, L101.9900 ####[facility] [address] [place], [address] Lymphocytes/100 WBC (Bld) 36.0 % Normal 19-41 [facility] Comment on above: Performed By: #### L 100.0100, L501.6710, L500.2500, L101.9900 ####[facility] [address] [place], [address] MCH (RBC) [Entitic mass] 31.8 pg Normal 27.0-32.0 [facility] Comment on above: Performed By: #### L 100.0100, L501.6710, L500.2500, L101.9900 ####[facility] [address] [place], [address] MCHC (RBC) [Mass/Vol] 32.7 g/dL Normal 32-36 [facility] Comment on above: Performed By: #### L 100.0100, L501.6710, L500.2500, L101.9900 ####[facility] [address] [place], [address] MCV (RBC) [Entitic vol] 97.2 fL Normal 81-99 [facility] Comment on above: Performed By: #### L 100.0100, L501.6710, L500.2500, L101.9900 ####[facility] [address] [place], [address] Monocytes/100 WBC (Bld) 9.0 % Normal 0-10 [facility] Comment on above: Performed By: #### L 100.0100, L501.6710, L500.2500, L101.9900 ####[facility] [address] [place], [address] Neutrophils/100 WBC (Bld) 52.8 % Normal 47-70 [facility] Comment on above: Performed By: #### L 100.0100, L501.6710, L500.2500, L101.9900 ####[facility] [address] [place], [address] Nucleated RBC (Bld) [#/Vol] 0 10*3/uL Normal 0-5 [facility] Comment on above: Performed By: #### L 100.0100, L501.6710, L500.2500, L101.9900 ####[facility] [address] [place], [address] Platelet mean volume (Bld) [Entitic vol] 9.8 fL Normal 6.2-12.0 [facility] Comment on above: Performed By: #### L 100.0100, L501.6710, L500.2500, L101.9900 ####[facility] [address] [place], [address] Platelets (Bld) [#/Vol] 249 10*3/uL Normal 150-450 [facility] Comment on above: Performed By: #### L 100.0100, L501.6710, L500.2500, L101.9900 ####[facility] [address] [place], [address] RBC (Bld) [#/Vol] 3.87 10*6/uL Low 4.2-5.4 [facility] Comment on above: Performed By: #### L 100.0100, L501.6710, L500.2500, L101.9900 ####[facility] [address] [place], [address] RDW SD 56.6 fl High 35.1-43.9 [facility] Comment on above: Performed By: #### L 100.0100, L501.6710, L500.2500, L101.9900 ####[facility] [address] [place], [address] WBC (Bld) [#/Vol] 5.0 10*3/uL Normal 4.4-11.0 [facility] Comment on above: Performed By: #### L 100.0100, L501.6710, L500.2500, L101.9900 ####[facility] [address] [place], [address] [facility] Telephone (INTMWS) JAROD PRITCHARD ([id number]) 1940 F Date Time Provider Department 03/07/24 KIERRA SANTIAGO INTMWS During your visit today, we recorded the following information about you: Noemi Cullen RN 03/07/2024 4:00 PM Signed Moisés with [facility] calling to report that their system shows a [id number] caution listed for patient's sertraline and warfarin. No call back needed to Moisés, unless provider has further orders or recommendation. XOCHILT Oliveira Liza D, MD 03/07/2024 7:26 PM Signed These is a low risk of GI side effects with sertaline including bleeding, but patient is on a PPI that can be protective. If patient prefers alternative med, can choose a different med that may have lower risk.. Could choose any of the other SSRI meds (they have slight risk). Kisha Irizarry, XOCHILT 03/09/2024 9:14 AM Signed Phoned Moisés, and given provider's message below with verbalized understanding. Moisés reports pt has only been on the sertraline for 1 week and Moisés has already noticed an improvement - better spirits. Moisés will monitor for now. 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 Kierra Santiago MD 03/09/2024 11:52 AM Signed Noted. Kierra Santiago MD Allergies As of Date: 03/07/2024 Noted Allergy Reaction ACCUPRIL (QUINAPRIL) 04/14/2015 16 - Unknown CALAN (VERAPAMIL) 04/14/2015 16 - Unknown CYMBALTA (DULOXETINE) 03/01/2024 5 - Intolerance Comments: dizziness LOTENSIN (BENAZEPRIL HCL) 04/14/2015 16 - Unknown SULFA (SULFONAMIDE ANTIBIOTICS) 04/14/2015 16 - Unknown Date Reviewed: 02/23/2024 Reviewed by: Anastasiia Colón APRN.[employer] - Fully Assessed Reason for Visit: Patient Update [1234] Prescriptions as of 03/09/2024 - sertraline (ZOLOFT) 25 mg tablet Take 1 tablet by mouth once daily. - furosemide (LASIX) 40 mg tablet Take 1 tablet by mouth once daily. - acetaminophen (TYLENOL) 500 mg tablet EVERY 8 HOURS - gabapentin (NEURONTIN) 100 mg capsule TWICE DAILY WITH MEALS - enoxaparin (LOVENOX) 80 mg/0.8 mL Q12H - magnesium chloride (MAG64) [address] tablet Take 64 mg by mouth two times a day. - docusate sodium (STOOL SOFTENER ORAL) Take by mouth. - traMADol (ULTRAM) 50 mg tablet EVERY 8 HOURS NEEDED as needed for PAIN 1-3 - Ferrous Fumarate 325 mg (106 mg iron) tab Take by mouth. - argin/glut/CaHMB/josh ag/mv-min (BUSTER, WITH COLLAGEN, ORAL) Take by mouth. - metoprolol succinate ER (TOPROL XL) 50 mg 24 hr tablet Take 1 tablet by mouth once daily. - glimepiride (AMARYL) 2 mg tablet Take 1 tablet by mouth daily with breakfast. Check blood sugars daily, if remaining above 200 consistently in 2 to 4 weeks will increase the dose - losartan (COZAAR) 50 mg tablet Take 1 tablet by mouth once daily. - spironolactone (ALDACTONE) 25 mg tablet Take 0.5 tablets by mouth once daily. - Miscellaneous Medical Supply Take 1 Each by mouth two times a day. People [place] 3+CoQ10 --30 mg of CoQ10 - cholecalciferol (VITAMIN D-3) 5,000 unit tab Take 5,000 Units by mouth. Take 1-2 tablet daily - Magnesium 200 mg tab Take by mouth. - oxybutynin ER (DITROPAN XL) 10 mg 24 hr tablet Take 1 tablet by mouth once daily. - simvastatin (ZOCOR) 80 mg tablet Take 1 tablet by mouth daily at bedtime. - warfarin (COUMADIN) 2 mg tablet Take 1 tablet by mouth once daily. 1mg T, TH mg M,W,F, Sat, SUN or as directed - fluticasone (FLONASE) 50 mcg/actuation nasal spray Use 2 Sprays in each nostril once daily. - omeprazole (PRILOSEC) 20 mg capsule Take 1 capsule by mouth daily before breakfast. 1/2 hr before meal. - ferrous sulfate 325 mg (65 mg iron) tablet Take 325 mg by mouth. - calcium carbonate (CALCIUM 600 ORAL) Take 1,200 mg by mouth. - cinnamon bark (CINNAMON ORAL) Take 4,200 mg by mouth. - sodium chloride (AYR SALINE) 0.65 % nasal spray Use 2 Sprays in the nose as needed. - propylene glycoL (SYSTANE BALANCE) 0.6 % drop 1 Drop. 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 For the evaluation of Relative Riskfor Cardiovascular Disease, a High Sensitivity CRP (HSCRP)should be ordered. Performed By: #### L 100.0100, L501.6710, L500.2500, L101.9900 ####[facility] [address] [place], [address] Emergency Department Summary on 03-07-2024 Emergency Department Summary Normal [facility] Erythrocyte Sed Rateon 03-07 SED RATE 17 mm/hr Normal 0-30 [facility] Comment on above: Performed By: #### L 100.0100, L501.6710, L500.2500, L101.9900 ####[facility] [address] [place], [address] Foot min 3 Viewson 4 Foot min 3 Views Normal [facility] H AND P Exam - Hospitaliston 03-07-2024 H&P Exam - Hospitalist Normal [facility] Basic Metabolic Profile (BMP )on 03-02-2024 BUN Normal 7-18 [facility] Comment on above: Result Comment: Canc elled via OM: Order cancelled - Patient discharged Performed By: #### L 500.2500 ####[facility] [address] [place], [address] BUN/CRE Normal 10-20 [facility] Comment on above: Result Comment: Canc elled via OM: Order cancelled - Patient discharged Performed By: #### L 500.2500 ####[facility] [address] [place], [address] CA,Total Normal 8.5-10.1 [facility] Comment on above: Result Comment: Canc elled via OM: Order cancelled - Patient discharged Performed By: #### L 500.2500 ####[facility] [address] [place], [address] CL Normal 98-107 [facility] Comment on above: Result Comment: Canc elled via OM: Order cancelled - Patient discharged Performed By: #### L 500.2500 ####[facility] [address] [place], [address] CO2 Normal 21.0-32.0 [facility] Comment on above: Result Comment: Canc elled via OM: Order cancelled - Patient discharged Performed By: #### L 500.2500 ####[facility] [address] [place], [address] CREAT,SERUM Normal 0.55-1.02 [facility] Comment on above: Result Comment: Canc elled via OM: Order cancelled - Patient discharged Performed By: #### L 500.2500 ####[facility] [address] [place], [address] EST GFR Normal >60 [facility] Comment on above: Result Comment: Canc elled via OM: Order cancelled - Patient discharged Performed By: #### L 500.2500 ####[facility] [address] [place], [address] EST GFR - AA Normal >60 [facility] Comment on above: Result Comment: Canc elled via OM: Order cancelled - Patient discharged Performed By: #### L 500.2500 ####[facility] [address] [place], [address] GAP Normal 5-15 [facility] Comment on above: Result Comment: Canc elled via OM: Order cancelled - Patient discharged Performed By: #### L 500.2500 ####[facility] [address] [place], [address] GLU Normal 74-106 [facility] Comment on above: Result Comment: Canc elled via OM: Order cancelled - Patient discharged Performed By: #### L 500.2500 ####[facility] [address] [place], [address] Potassium Normal 3.5-5.1 [facility] Comment on above: Result Comment: Canc elled via OM: Order cancelled - Patient discharged Performed By: #### L 500.2500 ####[facility] [address] [place], [address] Basic Metabolic Profile (BMP) Normal 136-145 [facility] Comment on above: Result Comment: Canc elled via OM: Order cancelled - Patient discharged Performed By: #### L 500.2500 ####[facility] [address] [place], [address] CBC W/Diff, Automatedon 11-0 -2023 Absolute Neut Normal 2.0-7.7 [facility] Comment on above: Result Comment: Canc elled via OM: Order cancelled - Patient discharged Performed By: #### L 100.0100 ####[facility] [address] [place], [address] HCT Normal 37-47 [facility] Comment on above: Result Comment: Canc elled via OM: Order cancelled - Patient discharged Performed By: #### L 100.0100 ####[facility] [address] [place], [address] HGB Normal 12.0-15.0 [facility] Comment on above: Result Comment: Canc elled via OM: Order cancelled - Patient discharged Performed By: #### L 100.0100 ####[facility] [address] [place], [address] MCH Normal 27.0-32.0 [facility] Comment on above: Result Comment: Canc elled via OM: Order cancelled - Patient discharged Performed By: #### L 100.0100 ####[facility] [address] [place], [address] MCHC Normal 32-36 [facility] Comment on above: Result Comment: Canc elled via OM: Order cancelled - Patient discharged Performed By: #### L 100.0100 ####[facility] [address] [place], [address] MCV Normal 81-99 [facility] Comment on above: Result Comment: Canc elled via OM: Order cancelled - Patient discharged Performed By: #### L 100.0100 ####[facility] [address] [place], [address] NEUT% Normal 47-70 [facility] Comment on above: Result Comment: Canc elled via OM: Order cancelled - Patient discharged Performed By: #### L 100.0100 ####[facility] [address] [place], [address] PLT Normal 150-450 [facility] Comment on above: Result Comment: Canc elled via OM: Order cancelled - Patient discharged Performed By: #### L 100.0100 ####[facility] [address] [place], [address] RBC Normal 4.2-5.4 [facility] Comment on above: Result Comment: Canc elled via OM: Order cancelled - Patient discharged Performed By: #### L 100.0100 ####[facility] [address] [place], [address] RDW CV Normal 11.6-14.6 [facility] Comment on above: Result Comment: Canc elled via OM: Order cancelled - Patient discharged Performed By: #### L 100.0100 ####[facility] [address] [place], [address] RDW SD Normal 35.1-43.9 [facility] Comment on above: Result Comment: Canc elled via OM: Order cancelled - Patient discharged Performed By: #### L 100.0100 ####[facility] [address] [place], [address] WBC Normal 4.4-11.0 [facility] Comment on above: Result Comment: Canc elled via OM: Order cancelled - Patient discharged Performed By: #### L 100.0100 ####[facility] [address] [place], [address] CTA Abd w/Runoff W/WO Contra ston 03-01-2024 CTA Abd w/Runoff W/WO Contrast Normal [facility] CNPNon 02-29-2024 CNPN Telephone (INTMWS) JAROD PRITCHARD ([id number]) 1940 F Date Time Provider Department 02/29/24 KIERRA SANTIAGO INTMWS During your visit today, we recorded the following information about you: Cecilio Guadarrama RN 02/29/2024 12:26 PM Signed Qasim LEMON with [facility] calls to notify provider that patient was to see podiatry (Dr. Vagras covering Dr. 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 Qasim reports that patient is very anxious and nervous and has mentioned that she would be better off if she went to sleep and didn't wake up. Denies a plan or means to end her own life. Qasim asking if provider would consider something for anxiety. Also asking if provider would refill oxycodone prescription ordered from [facility] as she is having quite a bit of pain with the foot. Please review and advise, XOCHILT Sen Liza D, MD 03/01/2024 4:00 PM Signed The following approved medication requests have been transmitted electronically. Requested Prescriptions Signed Prescriptions Disp Refills oxyCODONE IR (ROXICODONE) 5 mg immediate release tablet 42 tablet 0 Sig: Take 1 tablet by mouth every 4 hours as needed for pain for up to 7 days. Authorizing Provider: KIERRA SANTIAGO MD Sturdivant BekahVERNON 03/01/2024 4:57 PM Signed Qasim reports that patient is very anxious and nervous and has mentioned that she would be better off if she went to sleep and didn't wake up. Denies a plan or means to end her own life. Qasim asking if provider would consider something for anxiety as well as the oxycodone Kierra Santiago MD 03/01/2024 11:18 PM Signed Needs seen if need to consider meds [...] then if anxiety not severe enough needs seen sooner. Noted had discussed depression and anxiety in the past and Sheryl prescribed Duloxetine, but that caused dizziness. Would see if would like to try low dose of a different med, such as fluoxetine or sertraline or paroxetine. Arely Townsend, XOCHILT 03/02/2024 10:00 AM Signed Called and left a detailed voicemail notifying Qasim LEMON with [facility] of providers message. Clinic phone number was [...] the least side effects. Please send to [facility] in [place], Pt states she will be going there today. Pt declined moving her appointment with Anastasiia Colón up sooner. XOCHILT Thomas Liza D, MD 03/02/2024 8:48 PM Signed Below noted Will try lowest dose sertraline [...] once daily. Authorizing Provider: KIERRA SANTIAGO MD Wurst, Sherrie, RN 03/03/2024 8:33 AM Signed Patient returned call and given provider's message below and patient verbalized understanding. Agreeable to plan. Flaco Cullen RN Allergies As of Date: 02/29/2024 Noted Allergy Reaction ACCUPRIL (QUINAPRIL) 04/14/2015 16 - Unknown CALAN (VERAPAMIL) 04/14/2015 16 - Unknown LOTENSIN (BENAZEPRIL HCL) 04/14/2015 16 - Unknown SULFA (SULFONAMIDE ANTIBIOTICS) 04/14/2015 16 - Unknown Date Reviewed: 02/23/2024 Reviewed by: Anastasiia Colón APRN.BLUEPRINT MAKER - Fully Assessed Reason for Visit: Patient Update [1234] Primary Vi (more content not included)... Normal [facility] Basic Metabolic Profile (BMP )on 02-24-2024 BUN Normal 7-18 [facility] Comment on above: Result Comment: Canc elled via OM: Order cancelled - Patient discharged Performed By: #### L 500.2500 ####[facility] [address] [place], [address] BUN/CRE Normal 10-20 [facility] Comment on above: Result Comment: Canc elled via OM: Order cancelled - Patient discharged Performed By: #### L 500.2500 ####[facility] [address] [place], [address] CA,Total Normal 8.5-10.1 [facility] Comment on above: Result Comment: Canc elled via OM: Order cancelled - Patient discharged Performed By: #### L 500.2500 ####[facility] [address] [place], [address] CL Normal 98-107 [facility] Comment on above: Result Comment: Canc elled via OM: Order cancelled - Patient discharged Performed By: #### L 500.2500 ####[facility] [address] [place], [address] CO2 Normal 21.0-32.0 [facility] Comment on above: Result Comment: Canc elled via OM: Order cancelled - Patient discharged Performed By: #### L 500.2500 ####[facility] [address] [place], [address] CREAT,SERUM Normal 0.55-1.02 [facility] Comment on above: Result Comment: Canc elled via OM: Order cancelled - Patient discharged Performed By: #### L 500.2500 ####[facility] [address] [place], [address] EST GFR Normal >60 [facility] Comment on above: Result Comment: Canc elled via OM: Order cancelled - Patient discharged Performed By: #### L 500.2500 ####[facility] [address] [place], [address] EST GFR - AA Normal >60 [facility] Comment on above: Result Comment: Canc elled via OM: Order cancelled - Patient discharged Performed By: #### L 500.2500 ####[facility] [address] [place], [address] GAP Normal 5-15 [facility] Comment on above: Result Comment: Canc elled via OM: Order cancelled - Patient discharged Performed By: #### L 500.2500 ####[facility] [address] [place], [address] GLU Normal 74-106 [facility] Comment on above: Result Comment: Canc elled via OM: Order cancelled - Patient discharged Performed By: #### L 500.2500 ####[facility] [address] [place], [address] Potassium Normal 3.5-5.1 [facility] Comment on above: Result Comment: Canc elled via OM: Order cancelled - Patient discharged Performed By: #### L 500.2500 ####[facility] [address] [place], [address] Basic Metabolic Profile (BMP) Normal 136-145 [facility] Comment on above: Result Comment: Canc elled via OM: Order cancelled - Patient discharged Performed By: #### L 500.2500 ####[facility] [address] [place], [address] CBC W/Diff, Automatedon 10-2 Absolute Neut Normal 2.0-7.7 [facility] Comment on above: Result Comment: Canc elled via OM: Order cancelled - Patient discharged Performed By: #### L 100.0100 ####[facility] [address] [place], [address] HCT Normal 37-47 [facility] Comment on above: Result Comment: Canc elled via OM: Order cancelled - Patient discharged Performed By: #### L 100.0100 ####[facility] [address] [place], [address] HGB Normal 12.0-15.0 [facility] Comment on above: Result Comment: Canc elled via OM: Order cancelled - Patient discharged Performed By: #### L 100.0100 ####[facility] [address] [place], [address] MCH Normal 27.0-32.0 [facility] Comment on above: Result Comment: Canc elled via OM: Order cancelled - Patient discharged Performed By: #### L 100.0100 ####[facility] [address] [place], [address] MCHC Normal 32-36 [facility] Comment on above: Result Comment: Canc elled via OM: Order cancelled - Patient discharged Performed By: #### L 100.0100 ####[facility] [address] [place], [address] MCV Normal 81-99 [facility] Comment on above: Result Comment: Canc elled via OM: Order cancelled - Patient discharged Performed By: #### L 100.0100 ####[facility] [address] [place], [address] NEUT% Normal 47-70 [facility] Comment on above: Result Comment: Canc elled via OM: Order cancelled - Patient discharged Performed By: #### L 100.0100 ####[facility] [address] [place], [address] PLT Normal 150-450 [facility] Comment on above: Result Comment: Canc elled via OM: Order cancelled - Patient discharged Performed By: #### L 100.0100 ####[facility] [address] [place], [address] RBC Normal 4.2-5.4 [facility] Comment on above: Result Comment: Canc elled via OM: Order cancelled - Patient discharged Performed By: #### L 100.0100 ####[facility] [address] [place], [address] RDW CV Normal 11.6-14.6 [facility] Comment on above: Result Comment: Canc elled via OM: Order cancelled - Patient discharged Performed By: #### L 100.0100 ####[facility] [address] [place], [address] RDW SD Normal 35.1-43.9 [facility] Comment on above: Result Comment: Canc elled via OM: Order cancelled - Patient discharged Performed By: #### L 100.0100 ####[facility] [address] [place], [address] WBC Normal 4.4-11.0 [facility] Comment on above: Result Comment: Canc elled via OM: Order cancelled - Patient discharged Performed By: #### L 100.0100 ####[facility] [address] [place], [address] [facility]Non [facility] JAROD PRITCHARD ([id number]) 1940 F Date Time Provider Department 02/24/24 ANASTASIIA COLÓN INTWS During your visit today, we recorded the following information about you: Bekah Vivas LPN 02/24/2024 4:21 PM Signed ----- Message from Anastasiia Sevilla APRN.BLUEPRINT MAKER sent at 02/24/2024 4:15 PM EDT ----- Please let her know that lab work yesterday showed that she is dehydrated. Recommend decreasing lasix from twice a day dosing to once daily dosing and recheck metabolic panel in a week or 2. Bekah Vivas LPN 02/24/2024 4:23 PM Signed Patient notified of providers message and verbalized understanding. Allergies As of Date: 02/24/2024 Noted Allergy Reaction ACCUPRIL (QUINAPRIL) 04/14/2015 16 - Unknown CALAN (VERAPAMIL) 04/14/2015 16 - Unknown LOTENSIN (BENAZEPRIL HCL) 04/14/2015 16 - Unknown SULFA (SULFONAMIDE ANTIBIOTICS) 04/14/2015 16 - Unknown Date Reviewed: 02/23/2024 Reviewed by: Anastasiia Colón APRN.BLUEPRINT MAKER - Fully Assessed Prescriptions as of 02/24/2024 - furosemide (LASIX) 40 mg tablet Take 1 tablet by mouth once daily. - acetaminophen (TYLENOL) 500 mg tablet EVERY 8 HOURS - gabapentin (NEURONTIN) 100 mg capsule TWICE DAILY WITH MEALS - enoxaparin (LOVENOX) 80 mg/0.8 mL Q12H - magnesium chloride (MAG64) [address] tablet Take 64 mg by mouth two times a day. - docusate sodium (STOOL SOFTENER ORAL) Take by mouth. - oxyCODONE IR (ROXICODONE) 5 mg immediate release tablet EVERY 4 HOURS NEEDED as needed for Pain Score 4-10 - traMADol (ULTRAM) 50 mg tablet EVERY 8 HOURS NEEDED as needed for PAIN 1-3 - Ferrous Fumarate 325 mg (106 mg iron) tab Take by mouth. - argin/glut/CaHMB/josh ag/mv-min (BUSTER, WITH COLLAGEN, ORAL) Take by mouth. - metoprolol succinate ER (TOPROL XL) 50 mg 24 hr tablet Take 1 tablet by mouth once daily. - glimepiride (AMARYL) 2 mg tablet Take 1 tablet by mouth daily with breakfast. Check blood sugars daily, if remaining above 200 consistently in 2 to 4 weeks will increase the dose - losartan (COZAAR) 50 mg tablet Take 1 tablet by mouth once daily. - spironolactone (ALDACTONE) 25 mg tablet Take 0.5 tablets by mouth once daily. - Miscellaneous Medical Supply Take 1 Each by mouth two times a day. Biote [place] 3+CoQ10 --30 mg of CoQ10 - cholecalciferol (VITAMIN D-3) 5,000 unit tab Take 5,000 Units by mouth. Take 1-2 tablet daily - Magnesium 200 mg tab Take by mouth. - oxybutynin ER (DITROPAN XL) 10 mg 24 hr tablet Take 1 tablet by mouth once daily. - simvastatin (ZOCOR) 80 mg tablet Take 1 tablet by mouth daily at bedtime. - warfarin (COUMADIN) 2 mg tablet Take 1 tablet by mouth once daily. 1mg T, TH mg M,W,F, Sat, SUN or as directed - fluticasone (FLONASE) 50 mcg/actuation nasal spray Use 2 Sprays in each nostril once daily. - omeprazole (PRILOSEC) 20 mg capsule Take 1 capsule by mouth daily before breakfast. 1/2 hr before meal. - ferrous sulfate 325 mg (65 mg iron) tablet Take 325 mg by mouth. - calcium carbonate (CALCIUM 600 ORAL) Take 1,200 mg by mouth. - cinnamon bark (CINNAMON ORAL) Take 4,200 mg by mouth. - sodium chloride (AYR SALINE) 0.65 % nasal spray Use 2 Sprays in the nose as needed. - propylene glycoL (SYSTANE BALANCE) 0.6 % drop 1 Drop. 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] 07/01/2022 Bilateral carotid artery stenosis [I65.23] 03/15/2023 Elevated HDL [E78.89] 03/15/2023 Factor 5 Leiden mutation, heterozygous (HCC) [D*03/15/2023 Peripheral vascular disease, unspecified (HCC) *06/07/2023 Encounter Status:Closed by BEKAH VIVAS on 02/24/24 Normal [facility] CBC W Auto Differential pane l (Bld)on 02-23-2024 Basophils (Bld) [#/Vol] 0.03 10*3/uL Normal <0.11 [facility] Comment on above: Order Comment: Speci men Type: BLOOD SPECIMEN Ordering Facility: [facility] Address: [address] [place] [address] Performed By: #### T NIKIA, 13262-1 #### [facility] CLIA [id number] [address] [place], [place] [id number] [place] Basophils/100 WBC (Bld) 0.4 % Normal [facility] Comment on above: Order Comment: Speci men Type: BLOOD SPECIMEN Ordering Facility: [facility] Address: [address] [place] [address] Performed By: #### T NIKIA, 41493-1 #### [facility] CLIA [id number] [address] [place] [address] [place] Differential cell count method Nom (Bld) Auto Normal [facility] Comment on above: Order Comment: Speci men Type: BLOOD SPECIMEN Ordering Facility: [facility] Address: [address] [place] [address] Performed By: #### T NIKIA, 11780-4 #### [facility] CLIA [id number] [address] [place] [address] [place] Eosinophils (Bld) [#/Vol] 0.05 10*3/uL Normal <0.46 [facility] Comment on above: Order Comment: Speci men Type: BLOOD SPECIMEN Ordering Facility: [facility] Address: [address] [place] [address] Performed By: #### T NIKIA, 03891-6 #### [facility] CLIA [id number] [address] [place] [address] [place] Eosinophils/100 WBC (Bld) 0.7 % Normal [facility] Comment on above: Order Comment: Speci men Type: BLOOD SPECIMEN Ordering Facility: [facility] Address: [address] [place] [address] Performed By: #### T NIKIA, 41426-7 #### [facility] CLIA [id number] [address] [place] [address] [place] Erythrocyte distribution width (RBC) [Ratio] 16.3 % High 11.5-15.0 [facility] Comment on above: Order Comment: Speci men Type: BLOOD SPECIMEN Ordering Facility: [facility] Address: [address] [place] [address] Performed By: #### T NIKIA, 38751-5 #### [facility] CLIA [id number] [address] [place] [address] [place] Hematocrit (Bld) [Volume fraction] 42.4 % Normal 36.0-46.0 [facility] Comment on above: Order Comment: Speci men Type: BLOOD SPECIMEN Ordering Facility: [facility] Address: [address] [place] [address] Performed By: #### T NIKIA, 24261-9 #### [facility] CLIA [id number] [address] [place] [address] [place] Hemoglobin (Bld) [Mass/Vol] 13.5 g/dL Normal 11.5-15.5 [facility] Comment on above: Order Comment: Speci men Type: BLOOD SPECIMEN Ordering Facility: [facility] Address: [address] [place] [address] Performed By: #### T NIKIA, 64960-1 #### [facility] CLIA [id number] [address] [place] [address] [place] Immature granulocytes (Bld) [#/Vol] 10*3/uL Normal <0.10 [facility] Comment on above: Order Comment: Speci men Type: BLOOD SPECIMEN Ordering Facility: [facility] Address: [address] [place] [address] Performed By: #### T NIKIA, 99144-2 #### [facility] CLIA [id number] [address] [place] [address] [place] Immature granulocytes/100 WBC (Bld) 0.1 % Normal [facility] Comment on above: Order Comment: Speci men Type: BLOOD SPECIMEN Ordering Facility: [facility] Address: [address] [place] [address] Performed By: #### T NIKIA, 78365-3 #### [facility] CLIA [id number] [address] [place] [address] [place] Lymphocytes (Bld) [#/Vol] 2.52 10*3/uL Normal 1.00-4.00 [facility] Comment on above: Order Comment: Speci men Type: BLOOD SPECIMEN Ordering Facility: [facility] Address: [address] [place] [address] Performed By: #### T NIKIA, 20946-8 #### [facility] CLIA [id number] [address] [place] [address] [place] Lymphocytes/100 WBC (Bld) 36.2 % Normal [facility] Comment on above: Order Comment: Speci men Type: BLOOD SPECIMEN Ordering Facility: [facility] Address: [address] [place] [address] Performed By: #### T NIKIA, 71647-9 #### [facility] CLIA [id number] [address] [place] [address] [place] MCH (RBC) [Entitic mass] 32.2 pg Normal 26.0-34.0 [facility] Comment on above: Order Comment: Speci men Type: BLOOD SPECIMEN Ordering Facility: [facility] Address: [address] [place] [address] Performed By: #### T NIKIA, 92258-3 #### [facility] CLIA [id number] [address] [place] [address] [place] MCHC (RBC) [Mass/Vol] 31.8 g/dL Normal 30.5-36.0 [facility] Comment on above: Order Comment: Speci men Type: BLOOD SPECIMEN Ordering Facility: [facility] Address: [address] [place] [address] Performed By: #### T NIKIA, 09130-9 #### [facility] CLIA [id number] [address] [place] [address] [place] MCV (RBC) [Entitic vol] 101.2 fL High 80.0-100.0 [facility] Comment on above: Order Comment: Speci men Type: BLOOD SPECIMEN Ordering Facility: [facility] Address: [address] [place] [address] Performed By: #### T NIKIA, 91085-1 #### [facility] CLIA [id number] [address] [place] [address] [place] Monocytes (Bld) [#/Vol] 0.62 10*3/uL Normal <0.87 [facility] Comment on above: Order Comment: Speci men Type: BLOOD SPECIMEN Ordering Facility: [facility] Address: [address] [place] [address] Performed By: #### T NIKIA, 19472-4 #### [facility] CLIA [id number] [address] [place] [address] [place] Monocytes/100 WBC (Bld) 8.9 % Normal [facility] Comment on above: Order Comment: Speci men Type: BLOOD SPECIMEN Ordering Facility: [facility] Address: [address] [place] [address] Performed By: #### T NIKIA, 57918-5 #### [facility] CLIA [id number] [address] [place] [address] [place] Neutrophils (Bld) [#/Vol] 3.73 10*3/uL Normal 1.45-7.50 [facility] Comment on above: Order Comment: Speci men Type: BLOOD SPECIMEN Ordering Facility: [facility] Address: [address] [place] [address] Performed By: #### T NIKIA, #### [facility] CLIA [id number] [address] [place], [place] [id number] [place] Neutrophils/100 WBC (Bld) 53.7 % Normal [facility] Comment on above: Order Comment: Speci men Type: BLOOD SPECIMEN Ordering Facility: [facility] Address: [address] [place] [address] Performed By: #### Roderick MONETJO, 27705-1 #### [facility] CLIA [id number] [address] [place] [address] [place] Nucleated RBC (Bld) [#/Vol] 10*3/uL Normal <0.01 [facility] Comment on above: Order Comment: Speci men Type: BLOOD SPECIMEN Ordering Facility: [facility] Address: [address] [place] [address] Performed By: #### Roderick MONTEJO 47091-8 #### [facility] CLIA [id number] [address] [place] [address] [place] Nucleated RBC/100 WBC (Bld) [Ratio] 0.0 /100 WBC Normal [facility] Comment on above: Order Comment: Speci men Type: BLOOD SPECIMEN Ordering Facility: [facility] Address: [address] [place] [address] Performed By: #### Roderick MONTEJO, #### [facility] CLIA [id number] [address] [place] [address] [place] Platelet mean volume (Bld) [Entitic vol] 13.0 fL High 9.0-12.7 [facility] Comment on above: Order Comment: Speci men Type: BLOOD SPECIMEN Ordering Facility: [facility] Address: [address] [place] [address] Performed By: #### T NIKIA, 55815-2 #### [facility] CLIA [id number] [address] [place] [address] [place] Platelets (Bld) [#/Vol] 237 10*3/uL Normal 150-400 [facility] Comment on above: Order Comment: Speci men Type: BLOOD SPECIMEN Ordering Facility: [facility] Address: [address] [place] [address] Performed By: #### T CHADD, 12252-4 #### [facility] CLIA [id number] [address] [place] [address] [place] RBC (Bld) [#/Vol] 4.19 10*6/uL Normal 3.90-5.20 [facility] Comment on above: Order Comment: Speci men Type: BLOOD SPECIMEN Ordering Facility: [facility] Address: [address] [place] [address] Performed By: #### Roderick FLORENTINO, 60846-8 #### [facility] CLIA [id number] [address] [place] [address] [place] WBC (Bld) [#/Vol] 6.96 10*3/uL Normal 3.70-11.00 [facility] Comment on above: Order Comment: Speci men Type: BLOOD SPECIMEN Ordering Facility: [facility] Address: [address] [place] [address] Performed By: #### Roderick FLORENTINO, 72193-9 #### [facility] CLIA [id number] [address] [place] [address] [place] CNOVon 02-23-2024 CNOV Office Visit (INTMWS ) JAROD PRITCHARD ([id number]) 1940 F Date Time Provider Department 02/23/24 9:00 AM ANASTASIIA COLÓN INTMWS During your visit today, we recorded the following information about you: Pulse Respiration Blood pressure Weight 77/minute 16/minute 96/65 62.9 kg ColónAnastasiia APRN.BLUEPRINT MAKER 02/23/2024 10:21 AM Signed SUBJECTIVE: Pneumococcal Vaccine: 65+(1 of 2 - PCV) Never done RSV Vaccine(1 - 1-dose 75+ series) Never done Diabetic Foot Exam due on 08/10/2023 HPI Jarod Pritchard is a 83 year old female. [...] discharge follow-up visit. She was admitted to [facility] for right foot cellulitis right lower extremity ischemia. She underwent right femoropopliteal bypass with Dr. Rojas. She was admitted to PCU with debility. Admitted for rehabilitation and strengthening prior to discharge home with . Discharged home with her on February 08, 2024. She has home health care PT OT intermediate STN wheelchair. She was discharged on both [...] a follow-up appointment with Dr. Blanca her glass washer. She needs to reschedule appointment with Dr. Herrera cardiology. Review of Systems Constitutional: Negative. Respiratory: Negative. Cardiovascular: Negative. Endocrine: Negative. Objective BP 96/65 Pulse 77 Resp 16 Wt 62.9 kg (138 lb 10.7 oz) BMI 24.96 kg/m? Physical Exam Vitals and nursing note reviewed. [...] the right fourth toe anterior surface, black eschar right great toe covering about half of the anterior distal portion without. Foot is warm, skin pink in foot. Wearing post op showe. Skin: General: [...] (106 mg iron) tab Take by mouth. argin/glut/CaHMB/josh ag/mv-min (BUSTER, WITH COLLAGEN, ORAL) Take by mouth. furosemide [...] simvastatin (ZOCOR) 80 mg tablet Take 1 tab (more content not included)... Normal [facility] CNPNon 02-23-2024 CNPN Telephone (INTMWS) JAROD PRITCHARD ([id number]) 1940 F Date Time Provider Department 02/23/24 ANASTASIIA COLÓN INTMWS During your visit today, we recorded the following information about you: Anastasiia Colón, SHANNAN.BLUEPRINT MAKER 02/23/2024 4:20 PM Signed She did not check INR today. Check to see if add-on lab can add these to the CBC and CMP it was completed. Recommend she start Coumadin today. Take 4 mg today then resume previous pattern. Take 1 mg on Tuesday and 2 mg all other days. Check INR Coumadin clinic on Tuesday next week, this was not scheduled. Bekah Vivas LPN 02/23/2024 5:17 PM Signed Client services was not able to add INR to labs already drawn. Spoke with patient and she stated INR was drawn at the lab but they were holding onto it to see if it was going to be done at coumadin clinic. feed research technician that [facility] was gone and could not confirm if this was done. Patient was given coumadin instructions and verbalized understanding. Coumadin clinice for Tuesday was schedules Allergies As of Date: 02/23/2024 Noted Allergy Reaction ACCUPRIL (QUINAPRIL) 04/14/2015 16 - Unknown CALAN (VERAPAMIL) 04/14/2015 16 - Unknown LOTENSIN (BENAZEPRIL HCL) 04/14/2015 16 - Unknown SULFA (SULFONAMIDE ANTIBIOTICS) 04/14/2015 16 - Unknown Date Reviewed: 02/23/2024 Reviewed by: Anastasiia Colón APRN.BLUEPRINT MAKER - Fully Assessed Reason for Visit: Anticoagulation [8] Prescriptions as of 02/23/2024 - acetaminophen (TYLENOL) 500 mg tablet EVERY 8 HOURS - gabapentin (NEURONTIN) 100 mg capsule TWICE DAILY WITH MEALS - enoxaparin (LOVENOX) 80 mg/0.8 mL Q12H - magnesium chloride (MAG64) [address] tablet Take 64 mg by mouth two times a day. - docusate sodium (STOOL SOFTENER ORAL) Take by mouth. - oxyCODONE IR (ROXICODONE) 5 mg immediate release tablet EVERY 4 HOURS NEEDED as needed for Pain Score 4-10 - traMADol (ULTRAM) 50 mg tablet EVERY 8 HOURS NEEDED as needed for PAIN 1-3 - Ferrous Fumarate 325 mg (106 mg iron) tab Take by mouth. - argin/glut/CaHMB/josh ag/mv-min (BUSTER, WITH COLLAGEN, ORAL) Take by mouth. - metoprolol succinate ER (TOPROL XL) 50 mg 24 hr tablet Take 1 tablet by mouth once daily. - glimepiride (AMARYL) 2 mg tablet Take 1 tablet by mouth daily with breakfast. Check blood sugars daily, if remaining above 200 consistently in 2 to 4 weeks will increase the dose - losartan (COZAAR) 50 mg tablet Take 1 tablet by mouth once daily. - spironolactone (ALDACTONE) 25 mg tablet Take 0.5 tablets by mouth once daily. - furosemide (LASIX) 40 mg tablet Take 1 tablet by mouth two times a day. - Miscellaneous Medical Supply Take 1 Each by mouth two times a day. Biote [place] 3+CoQ10 --30 mg of CoQ10 - cholecalciferol (VITAMIN D-3) 5,000 unit tab Take 5,000 Units by mouth. Take 1-2 tablet daily - Magnesium 200 mg tab Take by mouth. - oxybutynin ER (DITROPAN XL) 10 mg 24 hr tablet Take 1 tablet by mouth once daily. - simvastatin (ZOCOR) 80 mg tablet Take 1 tablet by mouth daily at bedtime. - warfarin (COUMADIN) 2 mg tablet Take 1 tablet by mouth once daily. 1mg T, TH mg M,W,F, Sat, SUN or as directed - fluticasone (FLONASE) 50 mcg/actuation nasal spray Use 2 Sprays in each nostril once daily. - omeprazole (PRILOSEC) 20 mg capsule Take 1 capsule by mouth daily before breakfast. 1/2 hr before meal. - ferrous sulfate 325 mg (65 mg iron) tablet Take 325 mg by mouth. - calcium carbonate (CALCIUM 600 ORAL) Take 1,200 mg by mouth. - cinnamon bark (CINNAMON ORAL) Take 4,200 mg by mouth. - sodium chloride (AYR SALINE) 0.65 % nasal spray Use 2 Sprays in the nose as needed. - propylene glycoL (SYSTANE BALANCE) 0.6 % drop 1 Drop. 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] 07/01/2022 Bilateral carotid artery stenosis [I65.23] 03/15/2023 Elevated HDL [E78.89] 03/15/2023 Factor 5 Leiden mutation, heterozygous (HCC) [D*03/15/2023 Peripheral vascular disease, unspecified (HCC) *06/07/2023 Encounter Status:Closed by BEKAH VIVAS on 02/23/24 Normal [facility] Comprehensive metabolic 2000 panelon 02-23-2024 Albumin [Mass/Vol] 4.5 g/dL Normal 3.9-4.9 [facility] Comment on above: Order Comment: Speci men Type: BLOOD SPECIMEN Ordering Facility: [facility] Address: [address] [place] [address] Performed By: #### 2 4323-8 #### [facility] CLIA [id number] [address] [place] [address] [id number], [place] [address] [place] ALP [Catalytic activity/Vol] 58 U/L Normal 34-123 [facility] Comment on above: Order Comment: Speci men Type: BLOOD SPECIMEN Ordering Facility: [facility] Address: [address] [id number] Performed By: #### 2 4323-8 #### [facility] CLIA [id number] [address] [place] [address] [place] ALT [Catalytic activity/Vol] 23 U/L Normal 7-38 [facility] Comment on above: Order Comment: Speci men Type: BLOOD SPECIMEN Ordering Facility: [facility] Address: [address] [place] [address] Performed By: #### 2 4323-8 #### [facility] CLIA [id number] [address] [place] [address] [place] Anion gap [Moles/Vol] 14 mmol/L Normal 8-15 [facility] Comment on above: Order Comment: Speci men Type: BLOOD SPECIMEN Ordering Facility: [facility] Address: [address] [place] [address] Performed By: #### 2 4323-8 #### [facility] CLIA [id number] [address] [place] [address] [place] AST [Catalytic activity/Vol] 21 U/L Normal 13-35 [facility] Comment on above: Order Comment: Speci men Type: BLOOD SPECIMEN Ordering Facility: [facility] Address: [address] [id number] Performed By: #### 2 4323-8 #### [facility] CLIA [id number] [address] [place] [address] [place] Bilirubin [Mass/Vol] 0.4 mg/dL Normal 0.2-1.3 [facility] Comment on above: Order Comment: Speci men Type: BLOOD SPECIMEN Ordering Facility: [facility] Address: [address] [id number] Performed By: #### 2 4323-8 #### [facility] CLIA [id number] [address] [place] [address] [place] Calcium [Mass/Vol] 10.1 mg/dL Normal 8.5-10.2 [facility] Comment on above: Order Comment: Speci men Type: BLOOD SPECIMEN Ordering Facility: [facility] Address: [address] [place] [address] Performed By: #### 2 4323-8 #### [facility] CLIA [id number] [address] [place] [address] [place] Chloride [Moles/Vol] 95 mmol/L Low 98-107 [facility] Comment on above: Order Comment: Speci men Type: BLOOD SPECIMEN Ordering Facility: [facility] Address: [address] [place] [address] Performed By: #### 2 4323-8 #### [facility] CLIA [id number] [address] [place] [address] [place] CO2 [Moles/Vol] 24 mmol/L Normal 22-30 [facility] Comment on above: Order Comment: Speci men Type: BLOOD SPECIMEN Ordering Facility: [facility] Address: [address] [place] [address] Performed By: #### 2 4323-8 #### [facility] CLIA [id number] [address] [place] [address] [place] Creatinine [Mass/Vol] 1.31 mg/dL High 0.58-0.96 [facility] Comment on above: Order Comment: Speci men Type: BLOOD SPECIMEN Ordering Facility: [facility] Address: [address] [place] [address] Performed By: #### 2 4323-8 #### [facility] CLIA [id number] [address] [place] [address] [place] Creatinine and Glomerular filtration rate.predicted panel (S/P/Bld) 40 mL/min/1.73m??? Low >=60 [facility] Comment on above: Order Comment: Miguel cunningham Type: BLOOD SPECIMEN Ordering Facility: [facility] Address: [address] [place] [address] Result Comment: Kimberley mated Glomerular Filtration Rate [...] actual GFR. Performed By: #### 2 4323-8 #### [facility] CLIA [id number] [address] [place] [address] [place] Glucose [Mass/Vol] 133 mg/dL High 74-99 [facility] Comment on above: Order Comment: Miguel cunningham Type: BLOOD SPECIMEN Ordering Facility: [facility] Address: [address] [place] [address] Result Comment: The [place] Diabetes [employer] (ADA) provides guidance for cutoff values for fasting glucose and random glucose. The ADA defines fasting as no caloric intake for at least 8 hours. Fasting plasma glucose results between 100 to 125 mg/dL indicate increased risk for diabetes (prediabetes). Fasting plasma glucose results greater than or equal to 126 mg/dL meet the criteria for diagnosis of diabetes. In the absence of unequivocal hyperglycemia, results should be confirmed by repeat testing. In a patient with classic symptoms of hyperglycemia or hyperglycemic crisis, random plasma glucose results greater than or equal to 200 mg/dL meet the criteria for diagnosis of diabetes. Reference: Standards of Medical Care in Diabetes 2016, [place] [employer]. Diabetes Care. 2016.39(Suppl 1). Performed By: #### 2 4323-8 #### [facility] CLIA [id number] [address] [place] [address] [place] Potassium [Moles/Vol] 4.7 mmol/L Normal 3.7-5.1 [facility] Comment on above: Order Comment: Miguel cunningham Type: BLOOD SPECIMEN Ordering Facility: [facility] Address: [address] [place] [address] Performed By: #### 2 4323-8 #### [facility] CLIA [id number] [address] [place] [address] [place] Protein [Mass/Vol] 8.0 g/dL Normal 6.3-8.0 [facility] Comment on above: Order Comment: Speci men Type: BLOOD SPECIMEN Ordering Facility: [facility] Address: [address] [place] [address] Performed By: #### 2 4323-8 #### [facility] CLIA [id number] [address] [place] [address] [place] Sodium [Moles/Vol] 133 mmol/L Low 136-144 [facility] Comment on above: Order Comment: Speci men Type: BLOOD SPECIMEN Ordering Facility: [facility] Address: [address] [place] [address] Performed By: #### 2 4323-8 #### [facility] CLIA [id number] [address] [place] [address] [place] Urea nitrogen [Mass/Vol] 43 mg/dL High 7- [facility] Comment on above: Order Comment: Speci men Type: BLOOD SPECIMEN Ordering Facility: [facility] Address: [address] [place] [address] Performed By: #### 2 4323-8 #### [facility] CLIA [id number] [address] [place] [address] [place] Basic Metabolic Profile (BMP )on 02-17-2024 BUN Normal - [facility] Comment on above: Result Comment: Canc elled via OM: Order cancelled - Patient discharged Performed By: #### L 500.2500 ####[facility] [address] [place], [address] BUN/CRE Normal - [facility] Comment on above: Result Comment: Canc elled via OM: Order cancelled - Patient discharged Performed By: #### L 500.2500 ####[facility] [address] [place], [address] CA,Total Normal 8.5-10.1 [facility] Comment on above: Result Comment: Canc elled via OM: Order cancelled - Patient discharged Performed By: #### L 500.2500 ####[facility] [address] [place], [address] CL Normal 98-107 [facility] Comment on above: Result Comment: Canc elled via OM: Order cancelled - Patient discharged Performed By: #### L 500.2500 ####[facility] [address] [place], [address] CO2 Normal 21.0-32.0 [facility] Comment on above: Result Comment: Canc elled via OM: Order cancelled - Patient discharged Performed By: #### L 500.2500 ####[facility] [address] [place], [address] CREAT,SERUM Normal 0.55-1.02 [facility] Comment on above: Result Comment: Canc elled via OM: Order cancelled - Patient discharged Performed By: #### L 500.2500 ####[facility] [address] [place], [address] EST GFR Normal >60 [facility] Comment on above: Result Comment: Canc elled via OM: Order cancelled - Patient discharged Performed By: #### L 500.2500 ####[facility] [address] [place], [address] EST GFR - AA Normal >60 [facility] Comment on above: Result Comment: Canc elled via OM: Order cancelled - Patient discharged Performed By: #### L 500.2500 ####[facility] [address] [place], [address] GAP Normal 5-15 [facility] Comment on above: Result Comment: Canc elled via OM: Order cancelled - Patient discharged Performed By: #### L 500.2500 ####[facility] [address] [place], [address] GLU Normal 74-106 [facility] Comment on above: Result Comment: Canc elled via OM: Order cancelled - Patient discharged Performed By: #### L 500.2500 ####[facility] [address] [place], [address] Potassium Normal 3.5-5.1 [facility] Comment on above: Result Comment: Canc elled via OM: Order cancelled - Patient discharged Performed By: #### L 500.2500 ####[facility] [address] [place], [address] Basic Metabolic Profile (BMP) Normal 136-145 [facility] Comment on above: Result Comment: Canc elled via OM: Order cancelled - Patient discharged Performed By: #### L 500.2500 ####[facility] [address] [place], [address] CBC W/Diff, Automatedon 10-1 Absolute Neut Normal 2.0-7.7 [facility] Comment on above: Result Comment: Canc elled via OM: Order cancelled - Patient discharged Performed By: #### L 100.0100 ####[facility] [address] [place], [address] HCT Normal 37-47 [facility] Comment on above: Result Comment: Canc elled via OM: Order cancelled - Patient discharged Performed By: #### L 100.0100 ####[facility] [address] [place], [address] HGB Normal 12.0-15.0 [facility] Comment on above: Result Comment: Canc elled via OM: Order cancelled - Patient discharged Performed By: #### L 100.0100 ####[facility] [address] [place], [address] MCH Normal 27.0-32.0 [facility] Comment on above: Result Comment: Canc elled via OM: Order cancelled - Patient discharged Performed By: #### L 100.0100 ####[facility] [address] [place], [address] MCHC Normal 32-36 [facility] Comment on above: Result Comment: Canc elled via OM: Order cancelled - Patient discharged Performed By: #### L 100.0100 ####[facility] [address] [place], [address] MCV Normal 81-99 [facility] Comment on above: Result Comment: Canc elled via OM: Order cancelled - Patient discharged Performed By: #### L 100.0100 ####[facility] [address] [place], [address] NEUT% Normal 47-70 [facility] Comment on above: Result Comment: Canc elled via OM: Order cancelled - Patient discharged Performed By: #### L 100.0100 ####[facility] [address] [place], [address] PLT Normal 150-450 [facility] Comment on above: Result Comment: Canc elled via OM: Order cancelled - Patient discharged Performed By: #### L 100.0100 ####[facility] [address] [place], [address] RBC Normal 4.2-5.4 [facility] Comment on above: Result Comment: Canc elled via OM: Order cancelled - Patient discharged Performed By: #### L 100.0100 ####[facility] [address] [place], [address] RDW CV Normal 11.6-14.6 [facility] Comment on above: Result Comment: Canc elled via OM: Order cancelled - Patient discharged Performed By: #### L 100.0100 ####[facility] [address] [place], [address] RDW SD Normal 35.1-43.9 [facility] Comment on above: Result Comment: Canc elled via OM: Order cancelled - Patient discharged Performed By: #### L 100.0100 ####[facility] [address] [place], [address] WBC Normal 4.4-11.0 [facility] Comment on above: Result Comment: Canc elled via OM: Order cancelled - Patient discharged Performed By: #### L 100.0100 ####[facility] [address] [place], [address] Surgery Visit Reporton 02-14 Surgery Visit Report Normal [facility] ([id number]) 1940 F Date Time Provider Department 02/13/24 KIERRA SANTIAGO INTWS During your visit today, we recorded the following information about you: Kisha Irizarry RN 02/13/2024 1:38 PM Signed [facility] HH- reporting PT POC: will see patient 2 x's week for 3 weeks, for functional and mobility training. Sheryl Reyes APRN.POPULATION HEALTH COACH 02/13/2024 1:56 PM Signed Noted and agree Allergies As of Date: 02/13/2024 Noted Allergy Reaction ACCUPRIL (QUINAPRIL) 04/14/2015 16 - Unknown CALAN (VERAPAMIL) 04/14/2015 16 - Unknown LOTENSIN (BENAZEPRIL HCL) 04/14/2015 16 - Unknown SULFA (SULFONAMIDE ANTIBIOTICS) 04/14/2015 16 - Unknown Date Reviewed: 01/11/2024 Reviewed by: Kierra Santiago MD - Fully Assessed Reason for Visit: [facility] PT POC [Other] Prescriptions as of 02/13/2024 - furosemide (LASIX) 40 mg tablet Take 40 mg by mouth two times a day. - spironolactone (ALDACTONE) 25 mg tablet Take 12.5 mg by mouth once daily. - losartan (COZAAR) 50 mg tablet Take 50 mg by mouth once daily. - metoprolol succinate ER (TOPROL XL) 50 mg 24 hr tablet Take 50 mg by mouth once daily. - Miscellaneous Medical Supply Take 1 Each by mouth two times a day. Biote [place] 3+CoQ10 --30 mg of CoQ10 - glimepiride (AMARYL) 2 mg tablet Take 1 tablet by mouth daily with breakfast. Check blood sugars daily, if remaining above 200 consistently in 2 to 4 weeks will increase the dose - tiZANidine (ZANAFLEX) 4 mg tablet Take 1 tablet by mouth at bedtime as needed (muscle spasms). Or muscle spasms - cholecalciferol (VITAMIN D-3) 5,000 unit tab Take 5,000 Units by mouth. Take 1-2 tablet daily - Magnesium 200 mg tab Take by mouth. - melatonin 10 mg cap Take by mouth. - Ascorbic Acid (VITAMIN C) 1,000 mg tablet Take 1,000 mg by mouth once daily. - PHENYLephrine-guaiFEN esin (MUCUS RELIEF PE) 10-400 mg tab Take by mouth. - PHENYLephrine (SUDAFED PE) 10 mg tablet Take 10 mg by mouth. - oxybutynin ER (DITROPAN XL) 10 mg 24 hr tablet Take 1 tablet by mouth once daily. - simvastatin (ZOCOR) 80 mg tablet Take 1 tablet by mouth daily at bedtime. - warfarin (COUMADIN) 2 mg tablet Take 1 tablet by mouth once daily. 1mg T, TH mg M,W,F, Sat, SUN or as directed - fluticasone (FLONASE) 50 mcg/actuation nasal spray Use 2 Sprays in each nostril once daily. - omeprazole (PRILOSEC) 20 mg capsule Take 1 capsule by mouth daily before breakfast. 1/2 hr before meal. - Chromium Picolinate 200 mcg tab Take 1 tablet by mouth once daily. - ferrous sulfate 325 mg (65 mg iron) tablet Take 325 mg by mouth. - aspirin 325 mg tablet Take 325 mg by mouth once daily. - calcium carbonate (CALCIUM 600 ORAL) Take 1,200 mg by mouth. - CRANBERRY ORAL Take 4,200 mg by mouth. - cinnamon bark (CINNAMON ORAL) Take 4,200 mg by mouth. - sodium chloride (AYR SALINE) 0.65 % nasal spray Use 2 Sprays in the nose as needed. - Lactobac no.41/Bifidobact no.7 (PROBIOTIC-10 ORAL) Take by mouth. - propylene glycoL (SYSTANE BALANCE) 0.6 % drop 1 Drop. - vitamin E mixed/tocotrienol (VITAMIN E COMPLEX ORAL) Take 180 mg by mouth. - Zinc 50 mg tab Take 25 mg by mouth. 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] 07/01/2022 Bilateral carotid artery stenosis [I65.23] 03/15/2023 Elevated HDL [E78.89] 03/15/2023 Factor 5 Leiden mutation, heterozygous (HCC) [D*03/15/2023 Peripheral vascular disease, unspecified (HCC) *06/07/2023 Encounter Status:Closed by Kisha IRIZARRY on 02/13/24 Normal [facility] Basic Metabolic Profile (BMP )on 02-10-2024 BUN Normal 7-18 [facility] Comment on above: Result Comment: Canc elled via OM: Order cancelled - Patient discharged Performed By: #### L 500.2500 ####[facility] [address] [place], [address] BUN/CRE Normal 10- [facility] Comment on above: Result Comment: Canc elled via OM: Order cancelled - Patient discharged Performed By: #### L 500.2500 ####[facility] [address] [place], [address] CA,Total Normal 8.5-10.1 [facility] Comment on above: Result Comment: Canc elled via OM: Order cancelled - Patient discharged Performed By: #### L 500.2500 ####[facility] [address] [place], [address] CL Normal 98-107 [facility] Comment on above: Result Comment: Canc elled via OM: Order cancelled - Patient discharged Performed By: #### L 500.2500 ####[facility] [address] [place], [address] CO2 Normal 21.0-32.0 [facility] Comment on above: Result Comment: Canc elled via OM: Order cancelled - Patient discharged Performed By: #### L 500.2500 ####[facility] [address] [place], [address] CREAT,SERUM Normal 0.55-1.02 [facility] Comment on above: Result Comment: Canc elled via OM: Order cancelled - Patient discharged Performed By: #### L 500.2500 ####[facility] [address] [place], [address] EST GFR Normal >60 [facility] Comment on above: Result Comment: Canc elled via OM: Order cancelled - Patient discharged Performed By: #### L 500.2500 ####[facility] [address] [place], [address] EST GFR - AA Normal >60 [facility] Comment on above: Result Comment: Canc elled via OM: Order cancelled - Patient discharged Performed By: #### L 500.2500 ####[facility] [address] [place], [address] GAP Normal 5-15 [facility] Comment on above: Result Comment: Canc elled via OM: Order cancelled - Patient discharged Performed By: #### L 500.2500 ####[facility] [address] [place], [address] GLU Normal 74-106 [facility] Comment on above: Result Comment: Canc elled via OM: Order cancelled - Patient discharged Performed By: #### L 500.2500 ####[facility] [address] [place], [address] Potassium Normal 3.5-5.1 [facility] Comment on above: Result Comment: Canc elled via OM: Order cancelled - Patient discharged Performed By: #### L 500.2500 ####[facility] [address] [place], [address] Basic Metabolic Profile (BMP) Normal 136-145 [facility] Comment on above: Result Comment: Canc elled via OM: Order cancelled - Patient discharged Performed By: #### L 500.2500 ####[facility] [address] [place], [address] CBC W/Diff, Automatedon 10-1 Absolute Neut Normal 2.0-7.7 [facility] Comment on above: Result Comment: Canc elled via OM: Order cancelled - Patient discharged Performed By: #### L 100.0100 ####[facility] [address] [place], [address] HCT Normal 37-47 [facility] Comment on above: Result Comment: Canc elled via OM: Order cancelled - Patient discharged Performed By: #### L 100.0100 ####[facility] [address] [place], [address] HGB Normal 12.0-15.0 [facility] Comment on above: Result Comment: Canc elled via OM: Order cancelled - Patient discharged Performed By: #### L 100.0100 ####[facility] [address] [place], [address] MCH Normal 27.0-32.0 [facility] Comment on above: Result Comment: Canc elled via OM: Order cancelled - Patient discharged Performed By: #### L 100.0100 ####[facility] [address] [place], [address] MCHC Normal 32-36 [facility] Comment on above: Result Comment: Canc elled via OM: Order cancelled - Patient discharged Performed By: #### L 100.0100 ####[facility] [address] [place], [address] MCV Normal 81-99 [facility] Comment on above: Result Comment: Canc elled via OM: Order cancelled - Patient discharged Performed By: #### L 100.0100 ####[facility] [address] [place], [address] NEUT% Normal 47-70 [facility] Comment on above: Result Comment: Canc elled via OM: Order cancelled - Patient discharged Performed By: #### L 100.0100 ####[facility] [address] [place], [address] PLT Normal 150-450 [facility] Comment on above: Result Comment: Canc elled via OM: Order cancelled - Patient discharged Performed By: #### L 100.0100 ####[facility] [address] [place], [address] RBC Normal 4.2-5.4 [facility] Comment on above: Result Comment: Canc elled via OM: Order cancelled - Patient discharged Performed By: #### L 100.0100 ####[facility] [address] [place], [address] RDW CV Normal 11.6-14.6 [facility] Comment on above: Result Comment: Canc elled via OM: Order cancelled - Patient discharged Performed By: #### L 100.0100 ####[facility] [address] [place], [address] RDW SD Normal 35.1-43.9 [facility] Comment on above: Result Comment: Canc elled via OM: Order cancelled - Patient discharged Performed By: #### L 100.0100 ####[facility] [address] [place], [address] WBC Normal 4.4-11.0 [facility] Comment on above: Result Comment: Canc elled via OM: Order cancelled - Patient discharged Performed By: #### L 100.0100 ####[facility] [address] [place], [address] [facility] Telephone (INTMWS) JAROD PRITCHARD ([id number]) 1940 F Date Time Provider Department 02/09/24 KIERRA SANTIAGO INTMWS During your visit today, we recorded the following information about you: Arely Townsend RN 02/09/2024 3:59 PM Signed Moisés [facility] called in and reports he started Pts HH POC today. He states starting next week he would like to see the Pt twice a week for 1 week, then once a week for 4 weeks. He is asking if provider will follow for HH. He states nursing will be working with Pt on wound care to her feet, but they will be getting wound care orders from [...] months. Updated this on the medication list. Cecilio Guadarrama RN 02/09/2024 4:01 PM Signed Qasim calls back to let provider know that patient declined OT/ST services and will only be receiving SN/PT. XOCHILT Sen Liza D, MD 02/13/2024 1:28 PM Signed Noted. Kierra Santiago MD Allergies As of Date: 02/09/2024 Noted Allergy Reaction ACCUPRIL (QUINAPRIL) 04/14/2015 16 - Unknown CALAN (VERAPAMIL) 04/14/2015 16 - Unknown LOTENSIN (BENAZEPRIL HCL) 04/14/2015 16 - Unknown SULFA (SULFONAMIDE ANTIBIOTICS) 04/14/2015 16 - Unknown Date Reviewed: 01/11/2024 Reviewed by: Kierra Santiago MD - Fully Assessed Reason for Visit: Home Health Point of Care Results [4062] Prescriptions as of 02/13/2024 - furosemide (LASIX) 40 mg tablet Take 40 mg by mouth two times a day. - spironolactone (ALDACTONE) 25 mg tablet Take 12.5 mg by mouth once daily. - losartan (COZAAR) 50 mg tablet Take 50 mg by mouth once daily. - metoprolol succinate ER (TOPROL XL) 50 mg 24 hr tablet Take 50 mg by mouth once daily. - Miscellaneous Medical Supply Take 1 Each by mouth two times a day. Biote [place] 3+CoQ10 --30 mg of CoQ10 - glimepiride (AMARYL) 2 mg tablet Take 1 tablet by mouth daily with breakfast. Check blood sugars daily, if remaining above 200 consistently in 2 to 4 weeks will increase the dose - tiZANidine (ZANAFLEX) 4 mg tablet Take 1 tablet by mouth at bedtime as needed (muscle spasms). Or muscle spasms - cholecalciferol (VITAMIN D-3) 5,000 unit tab Take 5,000 Units by mouth. Take 1-2 tablet daily - Magnesium 200 mg tab Take by mouth. - melatonin 10 mg cap Take by mouth. - Ascorbic Acid (VITAMIN C) 1,000 mg tablet Take 1,000 mg by mouth once daily. - PHENYLephrine-guaiFEN esin (MUCUS RELIEF PE) 10-400 mg tab Take by mouth. - PHENYLephrine (SUDAFED PE) 10 mg tablet Take 10 mg by mouth. - oxybutynin ER (DITROPAN XL) 10 mg 24 hr tablet Take 1 tablet by mouth once daily. - simvastatin (ZOCOR) 80 mg tablet Take 1 tablet by mouth daily at bedtime. - warfarin (COUMADIN) 2 mg tablet Take 1 tablet by mouth once daily. 1mg T, TH mg M,W,F, Sat, SUN or as directed - fluticasone (FLONASE) 50 mcg/actuation nasal spray Use 2 Sprays in each nostril once daily. - omeprazole (PRILOSEC) 20 mg capsule Take 1 capsule by mouth daily before breakfast. 1/2 hr before meal. - Chromium Picolinate 200 mcg tab Take 1 tablet by mouth once daily. - ferrous sulfate 325 mg (65 mg iron) tablet Take 325 mg by mouth. - aspirin 325 mg tablet Take 325 mg by mouth once daily. - calcium carbonate (CALCIUM 600 ORAL) Take 1,200 mg by mouth. - CRANBERRY ORAL Take 4,200 mg by mouth. - cinnamon bark (CINNAMON ORAL) Take 4,200 mg by mouth. - sodium chloride (AYR SALINE) 0.65 % nasal spray Use 2 Sprays in the nose as needed. - Lactobac no.41/Bifidobact no.7 (PROBIOTIC-10 ORAL) Take by mouth. - propylene glycoL (SYSTANE BALANCE) 0.6 % drop 1 Drop. - vitamin E mixed/tocotrienol (VITAMIN E COMPLEX ORAL) Take 180 mg by mouth. - Zinc 50 mg tab Take 25 mg by mouth. 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 Normal [facility] Ankle Brachial Indexon 02-07 Ankle Brachial Index Normal [facility] Bedside Glucoseon 02-08-2024 FINGERSTICK GLU 122 mg/dL High 74-106 [facility] Comment on above: Result Comment: LEVI HDYE OF PATIENT CARE PER NURSING PROTOCOL Performed By: #### L 501.080 ####[facility] [address] [place], [place], [address] [facility] 02-08-2024 [facility] Telephone (INTMWS) JAROD PRITCHARD ([id number]) 1940 F Date Time Provider Department 02/08/24 KIERRA SANTIAGO INTMWS During your visit today, we recorded the following information about you: Prerna Salgado RN 02/08/2024 11:20 AM Signed Le from [facility] calls and states that patient is being discharged from TCU on 02/08/2024 with the diagnosis of femoral bypass. Le asking if provider willing to follow patient with orders for intermediate, physical therapy, occupational therapy, and speech therapy. If agreeable please give Le a call back [phone]. Thank you, XOCHILT Box Rosa, APRN.DAMASO 02/08/2024 12:55 PM Signed Yes, we will follow, please return call. Thanks Warner Atkins LPN 02/08/2024 1:11 PM Signed Le aware of same. Allergies As of Date: 02/08/2024 Noted Allergy Reaction ACCUPRIL (QUINAPRIL) 04/14/2015 16 - Unknown CALAN (VERAPAMIL) 04/14/2015 16 - Unknown LOTENSIN (BENAZEPRIL HCL) 04/14/2015 16 - Unknown SULFA (SULFONAMIDE ANTIBIOTICS) 04/14/2015 16 - Unknown Date Reviewed: 01/11/2024 Reviewed by: Kierra Santiago MD - Fully Assessed Reason for Visit: Home Health Orders [Other] Prescriptions as of 02/08/2024 - furosemide (LASIX) 40 mg tablet Take 40 mg by mouth two times a day. - spironolactone (ALDACTONE) 25 mg tablet Take 12.5 mg by mouth once daily. - losartan (COZAAR) 50 mg tablet Take 50 mg by mouth once daily. - metoprolol succinate ER (TOPROL XL) 50 mg 24 hr tablet Take 50 mg by mouth once daily. - Miscellaneous Medical Supply Take 1 Each by mouth two times a day. [employer] [place] 3+CoQ10 --30 mg of CoQ10 - glimepiride (AMARYL) 2 mg tablet Take 1 tablet by mouth daily with breakfast. Check blood sugars daily, if remaining above 200 consistently in 2 to 4 weeks will increase the dose - tiZANidine (ZANAFLEX) 4 mg tablet Take 1 tablet by mouth at bedtime as needed (muscle spasms). Or muscle spasms - cholecalciferol (VITAMIN D-3) 5,000 unit tab Take 5,000 Units by mouth. Take 1-2 tablet daily - Magnesium 200 mg tab Take by mouth. - melatonin 10 mg cap Take by mouth. - Ascorbic Acid (VITAMIN C) 1,000 mg tablet Take 1,000 mg by mouth once daily. - PHENYLephrine-guaiFEN esin (MUCUS RELIEF PE) 10-400 mg tab Take by mouth. - PHENYLephrine (SUDAFED PE) 10 mg tablet Take 10 mg by mouth. - oxybutynin ER (DITROPAN XL) 10 mg 24 hr tablet Take 1 tablet by mouth once daily. - simvastatin (ZOCOR) 80 mg tablet Take 1 tablet by mouth daily at bedtime. - warfarin (COUMADIN) 2 mg tablet Take 1 tablet by mouth once daily. 1mg T, TH mg M,W,F, Sat, SUN or as directed - fluticasone (FLONASE) 50 mcg/actuation nasal spray Use 2 Sprays in each nostril once daily. - omeprazole (PRILOSEC) 20 mg capsule Take 1 capsule by mouth daily before breakfast. 1/2 hr before meal. - Chromium Picolinate 200 mcg tab Take 1 tablet by mouth once daily. - ferrous sulfate 325 mg (65 mg iron) tablet Take 325 mg by mouth. - aspirin 325 mg tablet Take 325 mg by mouth once daily. - calcium carbonate (CALCIUM 600 ORAL) Take 1,200 mg by mouth. - CRANBERRY ORAL Take 4,200 mg by mouth. - cinnamon bark (CINNAMON ORAL) Take 4,200 mg by mouth. - sodium chloride (AYR SALINE) 0.65 % nasal spray Use 2 Sprays in the nose as needed. - Lactobac no.41/Bifidobact no.7 (PROBIOTIC-10 ORAL) Take by mouth. - propylene glycoL (SYSTANE BALANCE) 0.6 % drop 1 Drop. - vitamin E mixed/tocotrienol (VITAMIN E COMPLEX ORAL) Take 180 mg by mouth. - Zinc 50 mg tab Take 25 mg by mouth. 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] 07/01/2022 Bilateral carotid artery stenosis [I65.23] 03/15/2023 Elevated HDL [E78.89] 03/15/2023 Factor 5 Leiden mutation, heterozygous (HCC) [D*03/15/2023 Peripheral vascular disease, unspecified (HCC) *06/07/2023 Encounter Status:Closed by WARNER ATKINS on 02/08/24 [facility] US Art Duplex Unilat Lower E xton 02-08-2024 US Art Duplex Unilat Lower Ext Normal [facility] Bedside Glucoseon 02-07-2024 FINGERSTICK GLU 145 mg/dL High 74-106 [facility] Comment on above: Result Comment: ELVI GEMENT OF PATIENT CARE PER NURSING PROTOCOL Performed By: #### L 501.080 ####[facility] [address] [place], [address] COVID 19 AG RAPID (RN ETHEL T)on 02-07-2024 SARS-CoV-2 (COVID-19) RNA MARCOS+probe Ql (Unsp spec) Normal [facility] Comment on above: Performed By: #### M 100.505 ####[facility] [address] [place], [address] Bedside Glucoseon 02-06-2024 FINGERSTICK GLU 142 mg/dL High 74-106 [facility] Comment on above: Result Comment: LEVI GEMENT OF PATIENT CARE PER NURSING PROTOCOL Performed By: #### L 501.080 ####[facility] [address] [place], [address] Bedside Glucoseon 02-05-2024 FINGERSTICK GLU 133 mg/dL High 74-106 [facility] Comment on above: Result Comment: LEVI GEMENT OF PATIENT CARE PER NURSING PROTOCOL Performed By: #### L 501.080 ####[facility] [address] [place], [address] Bedside Glucoseon 02-04-2024 FINGERSTICK GLU 134 mg/dL High 74-106 [facility] Comment on above: Result Comment: LEVI GEMENT OF PATIENT CARE PER NURSING PROTOCOL Performed By: #### L 501.080 ####[facility] [address] [place], [address] Basic Metabolic Profile (BMP )on 02-03-2024 BUN/CRE 56.5 RATIO High 10-20 [facility] Comment on above: Performed By: #### L 500.2500 ####[facility] [address] [place], [address] CA,Total 9.4 mg/dL Normal 8.5-10.1 [facility] Comment on above: Performed By: #### L 500.2500 ####[facility] [address] [place], [address] Chloride [Moles/Vol] 102 mmol/L Normal 98-107 [facility] Comment on above: Performed By: #### L 500.2500 ####[facility] [address] [place], [address] CO2 [Moles/Vol] 26.0 mmol/L Normal 21.0-32.0 [facility] Comment on above: Performed By: #### L 500.2500 ####[facility] [address] [place], [address] Creatinine [Mass/Vol] 1.08 mg/dL High 0.55-1.02 [facility] Comment on above: Result Comment: The validity of the calculated GFR GFRAA in patients over70 years has not been determined. Clinical correlation isessential. Performed By: #### L 500.2500 ####[facility] [address] [place], [address] ECRCL 35.51 ml/min Normal [facility] Comment on above: Performed By: #### L 500.2500 ####[facility] [address] [place], [address] EST GFR - AA 62 mL/min Normal >60 [facility] Comment on above: Result Comment: Afri can Trin[place] GFR Calc Performed By: #### L 500.2500 ####[facility] [address] [place], [address] GAP 8 Normal 5-15 [facility] Comment on above: Performed By: #### L 500.2500 ####[facility] [address] [place], [address] GFR/1.73 sq M.predicted among non-blacks MDRD (S/P/Bld) [Vol rate/Area] 51 mL/min/{1.73_m2} Low >60 [facility] Comment on above: Result Comment: Non- GFR Calc Performed By: #### L 500.2500 ####[facility] [address] [place], [address] Glucose [Mass/Vol] 134 mg/dL High 74-106 [facility] Comment on above: Result Comment: Fast ing Glucose result greater than or equal to 126 mg/dLsuggests DIABETES MELLITUS per A.D.A. criteria. Performed By: #### L 500.2500 ####[facility] [address] [place], [address] Potassium [Moles/Vol] 3.8 mmol/L Normal 3.5-5.1 [facility] Comment on above: Performed By: #### L 500.2500 ####[facility] [address] [place], [address] Sodium [Moles/Vol] 135 mmol/L Low 136-145 [facility] Comment on above: Performed By: #### L 500.2500 ####[facility] [address] [place], [address] Urea nitrogen [Mass/Vol] 61 mg/dL High 7-18 [facility] Comment on above: Performed By: #### L 500.2500 ####[facility] [address] [place], [address] Bedside Glucoseon 02-03-2024 FINGERSTICK GLU 115 mg/dL High 74-106 [facility] Comment on above: Result Comment: LEVI AURORAENT OF PATIENT CARE PER NURSING PROTOCOL Performed By: #### L 501.080 ####[facility] [address] [place], [address] CBC W/Diff, Automatedon 10-0 Anisocytosis Ql (Bld) 1+ Normal [facility] Comment on above: Performed By: #### L 100.0100 ####[facility] [address] [place], [address] Bedside Glucoseon 02-02-2024 FINGERSTICK GLU 111 mg/dL High 74-106 [facility] Comment on above: Result Comment: LEVI GEMENT OF PATIENT CARE PER NURSING PROTOCOL Performed By: #### L 501.080 ####[facility] [address] [place], [address] Bedside Glucoseon 02-01-2024 FINGERSTICK GLU 129 mg/dL High -106 [facility] Comment on above: Result Comment: LEVI GEMENT OF PATIENT CARE PER NURSING PROTOCOL Performed By: #### L 501.080 ####[facility] [address] [place], [address] Bedside Glucoseon 01-31-2024 FINGERSTICK GLU 116 mg/dL High 74-106 [facility] Comment on above: Result Comment: LEVI GEMENT OF PATIENT CARE PER NURSING PROTOCOL Performed By: #### L 501.080 ####[facility] [address] [place], [address] COVID 19 AG RAPID (XOCHILT Vaughn)on 01-31-2024 SARS-CoV-2 (COVID-19) RNA MARCOS+probe Ql (Unsp spec) Normal [facility] Comment on above: Performed By: #### M 100.505 ####[facility] [address] [place], [address] Bedside Glucoseon 01-30-2024 FINGERSTICK GLU 126 mg/dL High 74-106 [facility] Comment on above: Result Comment: LEVI GEMENT OF PATIENT CARE PER NURSING PROTOCOL Performed By: #### L 501.080 ####[facility] [address] [facility] [address] Bedside Glucoseon 01-29-2024 FINGERSTICK GLU 120 mg/dL High 74-106 [facility] Comment on above: Result Comment: LEVI HYDE OF PATIENT CARE PER NURSING PROTOCOL Performed By: #### L 501.080 ####[facility] [address] [place], [address] Potassiumon 01-29-2024 Potassium [Moles/Vol] 4.2 mmol/L Normal 3.5-5.1 [facility] Comment on above: Result Comment: Slig ht Hemolysis, Result may be falsely increased. Performed By: #### L 501.5600 ####[facility] [address] [place], [address] Stool Occult Blood iFOBon STOB Negative Normal [facility] Comment on above: Performed By: #### M 100.7900 ####[facility] [address] [place], [address] BNP,B-Type NATRIURETIC PEPTI Juvenal 01-28-2024 Natriuretic peptide B (Bld) [Mass/Vol] 458.1 pg/mL High 0-100 [facility] Comment on above: Performed By: #### L 503.6620 ####[facility] [address] [place], [address] Basic Metabolic Profile (BMP )on 01-28-2024 BUN/CRE 24.0 RATIO High 10-20 [facility] Comment on above: Performed By: #### L 500.2500, L100.0100, L500.3400, L501.5200 ####[facility] [address] [place], [address] CA,Total 9.2 mg/dL Normal 8.5-10.1 [facility] Comment on above: Performed By: #### L 500.2500, L100.0100, L500.3400, L501.5200 ####[facility] [address] [place], [address] Chloride [Moles/Vol] 101 mmol/L Normal 98-107 [facility] Comment on above: Performed By: #### L 500.2500, L100.0100, L500.3400, L501.5200 ####[facility] [address] [place], [address] CO2 [Moles/Vol] 28.0 mmol/L Normal 21.0-32.0 [facility] Comment on above: Performed By: #### L 500.2500, L100.0100, L500.3400, L501.5200 ####[facility] [address] [place], [address] Creatinine [Mass/Vol] 0.92 mg/dL Normal 0.55-1.02 [facility] Comment on above: Result Comment: The validity of the calculated GFR GFRAA in patients over70 years has not been determined. Clinical correlation isessential. Performed By: #### L 500.2500, L100.0100, L500.3400, L501.5200 ####[facility] [address] [place], [address] ECRCL 41.82 ml/min Normal [facility] Comment on above: Performed By: #### L 500.2500, L100.0100, L500.3400, L501.5200 ####[facility] [address] [place], [address] EST GFR - AA 75 mL/min Normal >60 [facility] Comment on above: Result Comment: Afri can [place] GFR Calc Performed By: #### L 500.2500, L100.0100, L500.3400, L501.5200 ####[facility] [address] [place], [address] GAP 8 Normal 5-15 [facility] Comment on above: Performed By: #### L 500.2500, L100.0100, L500.3400, L501.5200 ####[facility] [address] [place], [address] GFR/1.73 sq M.predicted among non-blacks MDRD (S/P/Bld) [Vol rate/Area] 62 mL/min/{1.73_m2} Normal >60 [facility] Comment on above: Result Comment: Non- GFR Calc Performed By: #### L 500.2500, L100.0100, L500.3400, L501.5200 ####[facility] [address] [place], [address] Glucose [Mass/Vol] 110 mg/dL High 74-106 [facility] Comment on above: Result Comment: Fast ing Glucose result from 100 to 125 mg/dLsuggests IMPAIRED HOMEOSTASIS per A.D.A. criteria. Performed By: #### L 500.2500, L100.0100, L500.3400, L501.5200 ####[facility] [address] [place], [address] Potassium [Moles/Vol] 3.0 mmol/L Low 3.5-5.1 [facility] Comment on above: Performed By: #### L 500.2500, L100.0100, L500.3400, L501.5200 ####[facility] [address] [place], [address] Sodium [Moles/Vol] 137 mmol/L Normal 136-145 [facility] Comment on above: Performed By: #### L 500.2500, L100.0100, L500.3400, L501.5200 ####[facility] [address] [place], [address] Urea nitrogen [Mass/Vol] 22 mg/dL High 7-18 [facility] Comment on above: Performed By: #### L 500.2500, L100.0100, L500.3400, L501.5200 ####[facility] [address] [place], [address] Bedside Glucoseon 01-28-2024 FINGERSTICK GLU 119 mg/dL High 74-106 [facility] Comment on above: Result Comment: LEVI HYDE OF PATIENT CARE PER NURSING PROTOCOL Performed By: #### L 501.080 ####[facility] [address] [place], [address] CBC W/Diff, Automatedon 01-01 Absolute Lymph 1.26 X10 3/uL Normal 0.83-4.51 [facility] Comment on above: Performed By: #### L 500.2500, L100.0100, L500.3400, L501.5200 ####[facility] [address] [place], [address] Absolute Neut 3.2 X10 3/uL Normal 2.0-7.7 [facility] Comment on above: Performed By: #### L 500.2500, L100.0100, L500.3400, L501.5200 ####[facility] [address] [place], [address] Basophils/100 WBC (Bld) 0.9 % Normal 0-1 [facility] Comment on above: Performed By: #### L 500.2500, L100.0100, L500.3400, L501.5200 ####[facility] [address] [place], [address] Eosinophils/100 WBC (Bld) 4.1 % Normal 0-5 [facility] Comment on above: Performed By: #### L 500.2500, L100.0100, L500.3400, L501.5200 ####[facility] [address] [place], [address] Erythrocyte distribution width (RBC) [Ratio] 16.7 % High 11.6-14.6 [facility] Comment on above: Performed By: #### L 500.2500, L100.0100, L500.3400, L501.5200 ####[facility] [address] [place], [address] Hematocrit (Bld) [Volume fraction] 30.6 % Low 37-47 [facility] Comment on above: Performed By: #### L 500.2500, L100.0100, L500.3400, L501.5200 ####[facility] [address] [place], [address] Hemoglobin (Bld) [Mass/Vol] 9.6 g/dL Low 12.0-15.0 [facility] Comment on above: Performed By: #### L 500.2500, L100.0100, L500.3400, L501.5200 ####[facility] [address] [place], [address] IG% 0.600 Normal 0.0-0.9 [facility] Comment on above: Result Comment: IG% - Immature Granulocytes (promyelocytes, myelocytes andmetamyelocytes) > 1% indicates that a LEFT SHIFT is Present. Performed By: #### L 500.2500, L100.0100, L500.3400, L501.5200 ####[facility] [address] [place], [address] Lymphocytes/100 WBC (Bld) 23.5 % Normal 19-41 [facility] Comment on above: Performed By: #### L 500.2500, L100.0100, L500.3400, L501.5200 ####[facility] [address] [place], [address] MCH (RBC) [Entitic mass] 30.7 pg Normal 27.0-32.0 [facility] Comment on above: Performed By: #### L 500.2500, L100.0100, L500.3400, L501.5200 ####[facility] [address] [place], [address] MCHC (RBC) [Mass/Vol] 31.4 g/dL Low 32-36 [facility] Comment on above: Performed By: #### L 500.2500, L100.0100, L500.3400, L501.5200 ####[facility] [address] [place], [address] MCV (RBC) [Entitic vol] 97.8 fL Normal 81-[address] [facility] Comment on above: Performed By: #### L 500.2500, L100.0100, L500.3400, L501.5200 ####[facility] [address] [place], [address] Monocytes/100 WBC (Bld) 11.2 % High 0-[address] [facility] Comment on above: Performed By: #### L 500.2500, L100.0100, L500.3400, L501.5200 ####[facility] [address] [place], [address] Neutrophils/100 WBC (Bld) 59.7 % Normal 47-70 [facility] Comment on above: Performed By: #### L 500.2500, L100.0100, L500.3400, L501.5200 ####[facility] [address] [place], [address] Nucleated RBC (Bld) [#/Vol] 0 10*3/uL Normal 0-5 [facility] Comment on above: Performed By: #### L 500.2500, L100.0100, L500.3400, L501.5200 ####[facility] [address] [place], [address] Platelet mean volume (Bld) [Entitic vol] 10.0 fL Normal 6.2-12.0 [facility] Comment on above: Performed By: #### L 500.2500, L100.0100, L500.3400, L501.5200 ####[facility] [address] [place], [address] Platelets (Bld) [#/Vol] 256 10*3/uL Normal 150-450 [facility] Comment on above: Performed By: #### L 500.2500, L100.0100, L500.3400, L501.5200 ####[facility] [address] [place], [address] RBC (Bld) [#/Vol] 3.13 10*6/uL Low 4.2-5.4 [facility] Comment on above: Performed By: #### L 500.2500, L100.0100, L500.3400, L501.5200 ####[facility] [address] [place], [address] RDW SD 58.1 fl High 35.1-43.9 [facility] Comment on above: Performed By: #### L 500.2500, L100.0100, L500.3400, L501.5200 ####[facility] [address] [place], [address] WBC (Bld) [#/Vol] 5.4 10*3/uL Normal 4.4-11.0 [facility] Comment on above: Performed By: #### L 500.2500, L100.0100, L500.3400, L501.5200 ####[facility] [address] [place], [address] Liver Profileon 01-28-2024 Albumin [Mass/Vol] 2.8 g/dL Low 3.2-5.0 [facility] Comment on above: Performed By: #### L 500.2500, L100.0100, L500.3400, L501.5200 ####[facility] [address] [place], [address] ALK P 65 U/L Normal 45-117 [facility] Comment on above: Performed By: #### L 500.2500, L100.0100, L500.3400, L501.5200 ####[facility] [address] [place], [address] ALT [Catalytic activity/Vol] 42 U/L Normal 13-56 [facility] Comment on above: Performed By: #### L 500.2500, L100.0100, L500.3400, L501.5200 ####[facility] [address] [place], [address] AST [Catalytic activity/Vol] 30 U/L Normal 15-37 [facility] Comment on above: Performed By: #### L 500.2500, L100.0100, L500.3400, L501.5200 ####[facility] [address] [place], [address] Bilirubin [Mass/Vol] 0.70 mg/dL Normal 0.20-1.00 [facility] Comment on above: Result Comment: For patients on eltrombopag therapy, use of Dimension [place] TBIL is not recommended. Performed By: #### L 500.2500, L100.0100, L500.3400, L501.5200 ####[facility] [address] [place], [address] Bilirubin.direct [Mass/Vol] 0.20 mg/dL Normal 0.00-0.30 [facility] Comment on above: Performed By: #### L 500.2500, L100.0100, L500.3400, L501.5200 ####[facility] [address] [place], [address] Globulin (S) [Mass/Vol] 3.9 g/dL Normal 2.2-4.[address] [facility] Comment on above: Performed By: #### L 500.2500, L100.0100, L500.3400, L501.5200 ####[facility] [address] [place], [address] T PROT 6.7 g/dL Normal 6.4-8.2 [facility] Comment on above: Performed By: #### L 500.2500, L100.0100, L500.3400, L501.5200 ####[facility] [address] [place], [address] Magnesiumon 01-28-2024 Magnesium [Mass/Vol] 1.7 mg/dL Normal 1.6-2.6 [facility] Comment on above: Performed By: #### L 500.2500, L100.0100, L500.3400, L501.5200 ####[facility] [address] [place], [address] Basic Metabolic Profile (BMP )on 01-25-2024 BUN/CRE 21.0 RATIO High 10-20 [facility] Comment on above: Performed By: #### L 100.0500, L500.2500 ####[facility] [address] [place], [address] CA,Total 9.6 mg/dL Normal 8.5-10.1 [facility] Comment on above: Performed By: #### L 100.0500, L500.2500 ####[facility] [address] [place], [address] Chloride [Moles/Vol] 103 mmol/L Normal 98-107 [facility] Comment on above: Performed By: #### L 100.0500, L500.2500 ####[facility] [address] [place], [address] CO2 [Moles/Vol] 28.0 mmol/L Normal 21.0-32.0 [facility] Comment on above: Performed By: #### L 100.0500, L500.2500 ####[facility] [address] [place], [address] Creatinine [Mass/Vol] 0.90 mg/dL Normal 0.55-1.02 [facility] Comment on above: Result Comment: The validity of the calculated GFR GFRAA in patients over70 years has not been determined. Clinical correlation isessential. Performed By: #### L 100.0500, L500.2500 ####[facility] [address] [place], [address] ECRCL 43.63 ml/min Normal [facility] Comment on above: Performed By: #### L 100.0500, L500.2500 ####[facility] [address] [place], [address] EST GFR - AA 76 mL/min Normal >60 [facility] Comment on above: Result Comment: Afri can Trinid[place] GFR Calc Performed By: #### L 100.0500, L500.2500 ####[facility] [address] [place], [address] GAP 6 Normal 5-15 [facility] Comment on above: Performed By: #### L 100.0500, L500.2500 ####[facility] [address] [place], [address] GFR/1.73 sq M.predicted among non-blacks MDRD (S/P/Bld) [Vol rate/Area] 63 mL/min/{1.73_m2} Normal >60 [facility] Comment on above: Result Comment: Non- GFR Calc Performed By: #### L 100.0500, L500.2500 ####[facility] [address] [place], [address] Glucose [Mass/Vol] 152 mg/dL High 74-106 [facility] Comment on above: Result Comment: Fast ing Glucose result greater than or equal to 126 mg/dLsuggests DIABETES MELLITUS per A.D.A. criteria. Performed By: #### L 100.0500, L500.2500 ####[facility] [address] [place], [address] Potassium [Moles/Vol] 3.5 mmol/L Normal 3.5-5.1 [facility] Comment on above: Performed By: #### L 100.0500, L500.2500 ####[facility] [address] [place], [address] Sodium [Moles/Vol] 137 mmol/L Normal 136-145 [facility] Comment on above: Performed By: #### L 100.0500, L500.2500 ####[facility] [address] [place], [address] Urea nitrogen [Mass/Vol] 19 mg/dL High 7-18 [facility] Comment on above: Performed By: #### L 100.0500, L500.2500 ####[facility] [address] [place], [address] CBC-Complete Blood Cnt No Di ffon 01-25-2024 Erythrocyte distribution width (RBC) [Ratio] 15.9 % High 11.6-14.6 [facility] Comment on above: Performed By: #### L 100.0500, L500.2500 ####[facility] [address] [place], [address] Hematocrit (Bld) [Volume fraction] 27.9 % Low 37-47 [facility] Comment on above: Performed By: #### L 100.0500, L500.2500 ####[facility] [address] [place], [address] Hemoglobin (Bld) [Mass/Vol] 9.0 g/dL Low 12.0-15.0 [facility] Comment on above: Performed By: #### L 100.0500, L500.2500 ####[facility] [address] [place], [address] MCH (RBC) [Entitic mass] 31.1 pg Normal 27.0-32.0 [facility] Comment on above: Performed By: #### L 100.0500, L500.2500 ####[facility] [address] [place], [address] MCHC (RBC) [Mass/Vol] 32.3 g/dL Normal 32-36 [facility] Comment on above: Performed By: #### L 100.0500, L500.2500 ####[facility] [address] [place], [address] MCV (RBC) [Entitic vol] 96.5 fL Normal 81-[address] [facility] Comment on above: Performed By: #### L 100.0500, L500.2500 ####[facility] [address] [place], [address] Platelet mean volume (Bld) [Entitic vol] 10.1 fL Normal 6.2-12.0 [facility] Comment on above: Performed By: #### L 100.0500, L500.2500 ####[facility] [address] [place], [address] Platelets (Bld) [#/Vol] 253 10*3/uL Normal 150-450 [facility] Comment on above: Performed By: #### L 100.0500, L500.2500 ####[facility] [address] [place], [address] RBC (Bld) [#/Vol] 2.89 10*6/uL Low 4.2-5.4 [facility] Comment on above: Performed By: #### L 100.0500, L500.2500 ####[facility] [address] [place], [address] RDW SD 56.8 fl High 35.1-43.9 [facility] Comment on above: Performed By: #### L 100.0500, L500.2500 ####[facility] [address] [place], [address] WBC (Bld) [#/Vol] 5.4 10*3/uL Normal 4.4-11.0 [facility] Comment on above: Performed By: #### L 100.0500, L500.2500 ####[facility] [address] [place], [address] Basic Metabolic Profile (BMP )on 01-24-2024 BUN/CRE 19.7 RATIO Normal 10-20 [facility] Comment on above: Performed By: #### L 500.2500, L501.2300, L100.0100, L501.5200 ####[facility] [address] [place], [address] CA,Total 9.1 mg/dL Normal 8.5-10.1 [facility] Comment on above: Performed By: #### L 500.2500, L501.2300, L100.0100, L501.5200 ####[facility] [address] [place], [address] Chloride [Moles/Vol] 105 mmol/L Normal 98-107 [facility] Comment on above: Performed By: #### L 500.2500, L501.2300, L100.0100, L501.5200 ####[facility] [address] [place], [address] CO2 [Moles/Vol] 28.0 mmol/L Normal 21.0-32.0 [facility] Comment on above: Performed By: #### L 500.2500, L501.2300, L100.0100, L501.5200 ####[facility] [address] [place], [address] Creatinine [Mass/Vol] 0.92 mg/dL Normal 0.55-1.02 [facility] Comment on above: Result Comment: The validity of the calculated GFR GFRAA in patients over70 years has not been determined. Clinical correlation isessential. Performed By: #### L 500.2500, L501.2300, L100.0100, L501.5200 ####[facility] [address] [place], [address] ECRCL 42.68 ml/min Normal [facility] Comment on above: Performed By: #### L 500.2500, L501.2300, L100.0100, L501.5200 ####[facility] [address] [place], [address] EST GFR - AA 75 mL/min Normal >60 [facility] Comment on above: Result Comment: Afri can [place] GFR Calc Performed By: #### L 500.2500, L501.2300, L100.0100, L501.5200 ####[facility] [address] [place], [address] GAP 5 Normal 5-15 [facility] Comment on above: Performed By: #### L 500.2500, L501.2300, L100.0100, L501.5200 ####[facility] [address] [place], [address] GFR/1.73 sq M.predicted among non-blacks MDRD (S/P/Bld) [Vol rate/Area] 62 mL/min/{1.73_m2} Normal >60 [facility] Comment on above: Result Comment: Non- GFR Calc Performed By: #### L 500.2500, L501.2300, L100.0100, L501.5200 ####[facility] [address] [place], [address] Glucose [Mass/Vol] 133 mg/dL High 74-106 [facility] Comment on above: Result Comment: Fast ing Glucose result greater than or equal to 126 mg/dLsuggests DIABETES MELLITUS per A.D.A. criteria. Performed By: #### L 500.2500, L501.2300, L100.0100, L501.5200 ####[facility] [address] [place], [address] Potassium [Moles/Vol] 3.4 mmol/L Low 3.5-5.1 [facility] Comment on above: Performed By: #### L 500.2500, L501.2300, L100.0100, L501.5200 ####[facility] [address] [place], [address] Sodium [Moles/Vol] 138 mmol/L Normal 136-145 [facility] Comment on above: Performed By: #### L 500.2500, L501.2300, L100.0100, L501.5200 ####[facility] [address] [place], [address] Urea nitrogen [Mass/Vol] 18 mg/dL Normal 7-18 [facility] Comment on above: Performed By: #### L 500.2500, L501.2300, L100.0100, L501.5200 ####[facility] [address] [place], [address] CBC W/Diff, Automatedon 01-01 Absolute Lymph 1.02 X10 3/uL Normal 0.83-4.51 [facility] Comment on above: Performed By: #### L 500.2500, L501.2300, L100.0100, L501.5200 ####[facility] [address] [place], [address] Absolute Neut 3.1 X10 3/uL Normal 2.0-7.7 [facility] Comment on above: Performed By: #### L 500.2500, L501.2300, L100.0100, L501.5200 ####[facility] [address] [place], [address] Basophils/100 WBC (Bld) 0.6 % Normal 0-1 [facility] Comment on above: Performed By: #### L 500.2500, L501.2300, L100.0100, L501.5200 ####[facility] [address] [place], [address] Eosinophils/100 WBC (Bld) 5.6 % High 0-5 [facility] Comment on above: Performed By: #### L 500.2500, L501.2300, L100.0100, L501.5200 ####[facility] [address] [place], [address] Erythrocyte distribution width (RBC) [Ratio] 15.9 % High 11.6-14.6 [facility] Comment on above: Performed By: #### L 500.2500, L501.2300, L100.0100, L501.5200 ####[facility] [address] [place], [address] Hematocrit (Bld) [Volume fraction] 28.0 % Low 37-47 [facility] Comment on above: Performed By: #### L 500.2500, L501.2300, L100.0100, L501.5200 ####[facility] [address] [place], [address] Hemoglobin (Bld) [Mass/Vol] 8.8 g/dL Low 12.0-15.0 [facility] Comment on above: Performed By: #### L 500.2500, L501.2300, L100.0100, L501.5200 ####[facility] [address] [place], [address] IG% 0.400 Normal 0.0-0.9 [facility] Comment on above: Result Comment: IG% - Immature Granulocytes (promyelocytes, myelocytes andmetamyelocytes) > 1% indicates that a LEFT SHIFT is Present. Performed By: #### L 500.2500, L501.2300, L100.0100, L501.5200 ####[facility] [address] [place], [address] Lymphocytes/100 WBC (Bld) 19.6 % Normal 19-41 [facility] Comment on above: Performed By: #### L 500.2500, L501.2300, L100.0100, L501.5200 ####[facility] [address] [place], [address] MCH (RBC) [Entitic mass] 30.9 pg Normal 27.0-32.0 [facility] Comment on above: Performed By: #### L 500.2500, L501.2300, L100.0100, L501.5200 ####[facility] [address] [place], [address] MCHC (RBC) [Mass/Vol] 31.4 g/dL Low 32-36 [facility] Comment on above: Performed By: #### L 500.2500, L501.2300, L100.0100, L501.5200 ####[facility] [address] [place], [address] MCV (RBC) [Entitic vol] 98.2 fL Normal 81-[address] [facility] Comment on above: Performed By: #### L 500.2500, L501.2300, L100.0100, L501.5200 ####[facility] [address] [place], [address] Monocytes/100 WBC (Bld) 13.7 % High 0-10 [facility] Comment on above: Performed By: #### L 500.2500, L501.2300, L100.0100, L501.5200 ####[facility] [address] [place], [address] Neutrophils/100 WBC (Bld) 60.1 % Normal 47-70 [facility] Comment on above: Performed By: #### L 500.2500, L501.2300, L100.0100, L501.5200 ####[facility] [address] [place], [address] Nucleated RBC (Bld) [#/Vol] 0 10*3/uL Normal 0-5 [facility] Comment on above: Performed By: #### L 500.2500, L501.2300, L100.0100, L501.5200 ####[facility] [address] [place], [address] Platelet mean volume (Bld) [Entitic vol] 9.2 fL Normal 6.2-12.0 [facility] Comment on above: Performed By: #### L 500.2500, L501.2300, L100.0100, L501.5200 ####[facility] [address] [place], [address] Platelets (Bld) [#/Vol] 249 10*3/uL Normal 150-450 [facility] Comment on above: Performed By: #### L 500.2500, L501.2300, L100.0100, L501.5200 ####[facility] [address] [place], [address] RBC (Bld) [#/Vol] 2.85 10*6/uL Low 4.2-5.4 [facility] Comment on above: Performed By: #### L 500.2500, L501.2300, L100.0100, L501.5200 ####[facility] [address] [place], [address] RDW SD 57.8 fl High 35.1-43.9 [facility] Comment on above: Performed By: #### L 500.2500, L501.2300, L100.0100, L501.5200 ####[facility] [address] [place], [address] WBC (Bld) [#/Vol] 5.2 10*3/uL Normal 4.4-11.0 [facility] Comment on above: Performed By: #### L 500.2500, L501.2300, L100.0100, L501.5200 ####[facility] [address] [place], [address] Magnesiumon 01-24-2024 Magnesium [Mass/Vol] 1.8 mg/dL Normal 1.6-2.6 [facility] Comment on above: Performed By: #### L 500.2500, L501.2300, L100.0100, L501.5200 ####[facility] [address] [place], [address] Phosphoruson 01-24-2024 Phosphate [Mass/Vol] 3.5 mg/dL Normal 2.5-4.9 [facility] Comment on above: Performed By: #### L 500.2500, L501.2300, L100.0100, L501.5200 ####[facility] [address] [place], [address] XR Chest PA and Lateralon IMPRESSION: Left upper lobe nodule, seen on patient's CT chest dated 10/24/2023. A few hazy opacities overlying the left mid to lower lung zones, raising concern for infection/pneumonia. Please clinically correlate. Mild cardiomegaly. Heavy Equipment Rental Associate: PSCB Transcribe Date/Time: Dec 12 2023 10:20A Dictated by : JOSÉ MIGUEL MEEKS MD This examination was interpreted and the report reviewed and electronically signed by: JOSÉ MIGUEL MEEKS MD on Dec 12 2023 10:22AM [facility] DIVISION OF RADIOLOGY * * *Final [...] mild degenerative changes. DIVISION OF RADIOLOGY Provider, [facility] - 12/12/2023 * * *Final Report* * [...] for infection/pneumonia. Please clinically correlate. Mild cardiomegaly. Heavy Equipment Rental Associate: JEN Transcribe Date/Time: Dec 12 2023 10:20A Dictated by : JOSÉ MIGUEL MEEKS MD This examination was interpreted and the report reviewed and electronically signed by: JOSÉ MIGUEL MEEKS MD on Dec 12 2023 10:22AM EST [facility] Radiology Study observation (narrative) Abida Doss XR Chest PA and LateralOrder ed By: [facility] Provider on 12-12-2023 [facility] US Abdomen RUQon 11-30-2023 IMPRESSION: Cholelithiasis. Heavy Equipment Rental Associate: JEN Transcribe Date/Time: Nov 30 2023 9:57A Dictated by : JONNIE VILLEGAS MD This examination was interpreted and the report reviewed and electronically signed by: JONNIE VILLEGAS MD on Nov 30 2023 10:05AM EST DIVISION OF RADIOLOGY * * *Final Report* [...] hydronephrosis. Ascites: None. [facility] * * *Final Report* * [...] No hydronephrosis. Ascites: None. IMPRESSION IMPRESSION: Cholelithiasis. Heavy Equipment Rental Associate: JEN Transcribe Date/Time: Nov 30 2023 9:57A Dictated by : JONNIE VILLEGAS MD This examination was interpreted and the report reviewed and electronically signed by: JONNIE VILLEGAS MD on Nov 30 2023 10:05AM EST [facility] Radiology Study observation (narrative) [facility] US Abdomen RUQOrdered By: Noelle rich Provider on 11-30-2023 [facility] STRESS ECHO TREADMILLon 10-30 Stress ECG Report: Stress Echo [facility] Date of service: 11/14/2023 1:48:28 PM YIELD ENGINEER Ordering physician: ANASTASIIA COLÓN denture contour wire specialist: Santana Hernandez Interpreting physician: Eugene Christianson MD Patient name: JAROD PRITCHARD Age: 83 years Gender: F History [...] 170/94 mmHg. The double product achieved was [address]. Medications: Last Used METOPROLOL 1 Days AMLODIPINE [...] (HRR): 24 bpm Rate Pressure Product (RPP): 99072 Travis Treadmill Score: 10.0 Stress Exercise Observations: [...] equation for determining estimated MET values for [facility] stress tests changed. Comparison of test results before and after that date may show a change in estimated MET values for peak/max exercise despite a test duration that is similar in length. The validity of the new FRIEND equation for exercise METS is endorsed by the [place] [employer]. Bobby P, Jennifer LA, Madison R, Rojas J, Chey J. New Generalized Equation for Predicting Maximal Oxygen Uptake (from the Fitness Registry and the Importance of Exercise National Database). The [place] Journal of Cardiology. 2017;120(4):688-692). Final -------- Echocardiography Report: Stress Echo [facility] Date of service: 11/14/2023 1:48:28 PM YIELD ENGINEER Ordering physician: ANASTASIIA COLÓN Indication: Chest Pain Technologist: Prerna Krause [facility] Interpreting physician: Eugene Christianson MD PATIENT: Name: JAROD PRITCHARD : 1940 Age: 83 years Gender: [...] content not included)... [facility] CT CHEST WO IVCONon 11-23-19 [facility] No Panel Informationon 10-12 [facility] DXA-AXIAL SKELETONon 023 LOWEST T-SCORE -1.9 [facility] CBC W Auto Differential pane l (Bld)on 07-01-2022 Basophils (Bld) [#/Vol] 0.06 10*3/uL <0.11 k/uL [facility] Basophils/100 WBC (Bld) 1.0 % [facility] Differential cell count method Nom (Bld) Auto [facility] Eosinophils (Bld) [#/Vol] 0.13 10*3/uL <0.46 k/uL [facility] Eosinophils/100 WBC (Bld) 2.1 % [facility] Erythrocyte distribution width (RBC) [Ratio] 14.2 % 11.5 - 15.0 % [facility] Hematocrit (Bld) [Volume fraction] 39.7 % 36.0 - 46.0 % [facility] Hemoglobin (Bld) [Mass/Vol] 13.3 g/dL 11.5 - 15.5 g/dL [facility] Immature granulocytes (Bld) [#/Vol] <0.10 k/uL [facility] Immature granulocytes/100 WBC (Bld) 0.3 % [facility] Lymphocytes (Bld) [#/Vol] 1.80 10*3/uL 1.00 - 4.00 k/uL [facility] Lymphocytes/100 WBC (Bld) 28.7 % [facility] MCH (RBC) [Entitic mass] 33.1 pg 26.0 - 34.0 pg [facility] MCHC (RBC) [Mass/Vol] 33.5 g/dL 30.5 - 36.0 g/dL [facility] MCV (RBC) [Entitic vol] 98.8 fL 80.0 - 100.0 fL [facility] Monocytes (Bld) [#/Vol] 0.64 10*3/uL <0.87 k/uL [facility] Monocytes/100 WBC (Bld) 10.2 % [facility] Neutrophils (Bld) [#/Vol] 3.62 10*3/uL 1.45 - 7.50 k/uL [facility] Neutrophils/100 WBC (Bld) 57.7 % [facility] Nucleated RBC (Bld) [#/Vol] 0.03 10*3/uL High <0.01 k/uL [facility] Nucleated RBC/100 WBC (Bld) [Ratio] 0.5 /100 WBC [facility] Platelet mean volume (Bld) [Entitic vol] 10.7 fL 9.0 - 12.7 fL [facility] Platelets (Bld) [#/Vol] 216 10*3/uL 150 - 400 k/uL [facility] RBC (Bld) [#/Vol] 4.02 10*6/uL 3.90 - 5.2 0 m/uL [facility] WBC (Bld) [#/Vol] 6.27 10*3/uL 3.70 - 11. 00 k/uL [facility] Comprehensive metabolic 2000 panelon 07-01-2022 Albumin [Mass/Vol] 4.1 g/dL 3.9 - 4.9 g/dL [facility] ALP [Catalytic activity/Vol] 41 U/L 34 - 123 U/L [facility] ALT [Catalytic activity/Vol] 30 U/L 7 - 38 U/L [facility] Anion gap [Moles/Vol] 10 mmol/L 9 - 18 mmol/L [facility] AST [Catalytic activity/Vol] 23 U/L 13 - 35 U/L [facility] Bilirubin [Mass/Vol] 0.5 mg/dL 0.2 - 1 .3 mg/dL [facility] Calcium [Mass/Vol] 9.7 mg/dL 8.5 - 10. 2 mg/dL [facility] Chloride [Moles/Vol] 100 mmol/L 97 - 10 5 mmol/L [facility] CO2 [Moles/Vol] 27 mmol/L 22 - 30 mmol/L [facility] Creatinine [Mass/Vol] 1.08 mg/dL High 0.58 - 0.96 mg/dL [facility] Estimated Glomerular Filtration Rate 51 mL/min/1.73m Low >=60 mL/min/1.73m [facility] Glucose [Mass/Vol] 192 mg/dL High 74 - 99 mg/dL [facility] Potassium [Moles/Vol] 4.0 mmol/L 3.7 - 5.1 mmol/L [facility] Protein [Mass/Vol] 7.0 g/dL 6.3 - 8.0 g/dL [facility] Sodium [Moles/Vol] 137 mmol/L 136 - 144 mmol/L [facility] Urea nitrogen [Mass/Vol] 23 mg/dL High 7 - 21 mg/dL [facility] HbA1c (Bld)on 07-01-2022 Average glucose Estimated from glycated hemoglobin (Bld) [Mass/Vol] 171 mg/dL [facility] HbA1c (Bld) [Mass fraction] 7.6 % High 4.3 - 5.6 % [facility] LIPID PANEL, NONFASTINGon Cholesterol [Mass/Vol] 142 mg/dL <200 mg/dL [facility] HDL Cholesterol, Nonfasting 21 mg/dL Low >39 mg/dL [facility] LDL Cholesterol, Nonfasting [facility] LDL/HDL Ratio, Nonfasting [facility] Non HDL Cholesterol, Nonfasting 121 mg/dL <130 mg/dL [facility] Total Chol/HDL Ratio, Nonfasting 6.76 mg/dL High <5.10 mg/dL [facility] Triglycerides, Nonfasting 459 mg/dL High <150 mg/dL [facility] VLDL Cholesterol, Nonfasting [facility] TSH BLDon 07-01-2022 TSH Qn 2.450 m[IU]/L 0.270 - 4.200 mIU/L [facility] Vital Signs Date Time Vital Sign Value Performing Clinician Zandra kendall 12-13-2024 08:44-0400 Body height 160.[address] Kierra Santiago MD Work Phone: [facility] 12-13-2024 08:44-0400 Body mass index (BMI) [Ratio] 26.5 kg/m2 Dr. Kierra Santiago MD Work Phone: 1(026)218-169969 [place] [address] 12-13-2024 08:44-0400 Body weight 68.[address] Kierra Santiago MD Work Phone: 6(350)915-052469 [place] [address] 12-13-2024 08:44-0400 Diastolic blood pressure 77 mm[Hg] Dr. Kierra Santiago MD Work Phone: 8(544)419-498869 [place] [address] 12-13-2024 08:44-0400 Heart rate 70 /min Dr. Kierra Santiago MD Work Phone: 5(426)771-083269 [place] [address] 12-13-2024 08:44-0400 Respiratory rate 16 /min Dr. Kierra Santiago MD Work Phone: 1(800)956-200069 [place] [address] 12-13-2024 08:44-0400 Systolic blood pressure 143 mm[Hg] Dr. Kirera Santiago MD Work Phone: 7(312)937-851169 [place] [address] 10-31-2024 14:04-0400 Body temperature 98 [degF] Dr. Kierra Santiago MD Work Phone: 8(678)886-226369 [place] [address] 10-31-2024 14:04-0400 Body weight 68.[address] Kierra Santiago MD Work Phone: 2(850)472-755069 [place] [address] 10-31-2024 14:04-0400 Diastolic blood pressure 58 mm[Hg] Dr. Kierra Santiago MD Work Phone: 0(645)832-019879 [place] [address] 10-31-2024 14:04-0400 Heart rate 68 /min Dr. Kierra Santiago MD Work Phone: 8(140)598-243379 [place] [address] 10-31-2024 14:04-0400 Respiratory rate 16 /min Dr. Kierra Santiago MD Work Phone: 6(636)392-995379 [place] [address] 10-31-2024 14:04-0400 SaO2% (BldA) [Mass fraction] 99 % Dr. Kierra Santiago MD Work Phone: 5(899)802-472269 [place] [address] 10-31-2024 14:04-0400 Systolic blood pressure 111 mm[Hg] Dr. Kierra Santiago MD Work Phone: [facility] 10-24-2024 11:01-0400 Body height 158.8 cm Kierra Santiago MD Work Phone: [facility] 10-24-2024 11:01-0400 Body mass index (BMI) [Ratio] 26.7 kg/m2 Kierra Santiago MD Work Phone: [facility] 10-24-2024 11:01-0400 Body weight 67.3 kg Kierra Santiago MD Work Phone: [facility] 10-24-2024 11:01-0400 Diastolic blood pressure 60 mm[Hg] Kierra Santiago MD Work Phone: [facility] 10-24-2024 11:01-0400 Heart rate 72 /min Kierra Santiago MD Work Phone: [facility] 10-24-2024 11:01-0400 Systolic blood pressure 120 mm[Hg] Kierra Santiago MD Work Phone: [facility] 10-10-2024 15:31-0400 Heart rate 71 /min Dr. Kierra Santiago MD Work Phone: [facility] 10-10-2024 14:55-0400 Body temperature 99.5 [degF] Dr. Kierra Santiago MD Work Phone: [facility] 10-10-2024 14:55-0400 Diastolic blood pressure 49 mm[Hg] Dr. Kierra Santiago MD Work Phone: [facility] 10-10-2024 14:55-0400 Respiratory rate 16 /min Dr. Kierra Santiago MD Work Phone: [facility] 10-10-2024 14:55-0400 SaO2% (BldA) [Mass fraction] 92 % Dr. Kierra Santiago MD Work Phone: [facility] 10-10-2024 14:55-0400 Systolic blood pressure 130 mm[Hg] Dr. Kierra Santiago MD Work Phone: 7(013)651-087169 [place] [address] 10-10-2024 09:21-0400 Inhaled oxygen flow rate 2 L/min Dr. Kierra Santiago MD Work Phone: 7(044)453-684969 [place] [address] 10-10-2024 02:35-0400 Body mass index (BMI) [Ratio] 26.8 kg/m2 Dr. Kierra Santiago MD Work Phone: 8(328)807-272269 [place] [address] 10-10-2024 02:35-0400 Body weight 68.[address] Kierra Santiago MD Work Phone: 4(072)264-099969 [place] [address] 10-09-2024 10:20-0400 Body height 160.[address] Kierra Santiago MD Work Phone: 7(862)983-288569 [place] [address] 10-08-2024 14:27-0400 Body height 160.[address] Kierra Santiago MD Work Phone: 1(789)046-923469 [place] [address] 10-08-2024 14:27-0400 Body weight 69.[address] Kierra Santiago MD Work Phone: 6(917)375-852569 [place] [address] 10-08-2024 12:00-0400 Body temperature 98.1 [degF] Dr. Kierra Santiago MD Work Phone: 0(234)358-486469 [place] [address] 10-08-2024 12:00-0400 Diastolic blood pressure 57 mm[Hg] Dr. Kierra Santiago MD Work Phone: 1(842)712-310369 [place] [address] 10-08-2024 12:00-0400 Heart rate 60 /min Dr. Kierra Santiago MD Work Phone: 2(116)805-514369 [place] [address] 10-08-2024 12:00-0400 Inhaled oxygen flow rate 3 L/min Dr. Kierra Santiago MD Work Phone: 4(112)605-061869 [place] [address] 10-08-2024 12:00-0400 Respiratory rate 18 /min Dr. Kierra Santiago MD Work Phone: 0(610)367-810569 [place] [address] 10-08-2024 12:00-0400 SaO2% (BldA) [Mass fraction] 97 % Dr. Kierra Santiago MD Work Phone: 4(992)852-673769 [place] [address] 10-08-2024 12:00-0400 Systolic blood pressure 127 mm[Hg] Dr. Kierra Santiago MD Work Phone: 4(098)757-582269 [place] [address] 10-08-2024 05:58-0400 Body mass index (BMI) [Ratio] 27.2 kg/m2 Dr. Kierra Santiago MD Work Phone: 0(129)343-071969 [place] [address] 10-08-2024 00:40-0400 Body temperature 98.8 [degF] Dr. Kierra Santiago MD Work Phone: 9(834)588-637069 [place] [address] 10-08-2024 00:40-0400 Diastolic blood pressure 43 mm[Hg] Dr. Kierra Santiago MD Work Phone: 8(715)319-112869 [place] [address] 10-08-2024 00:40-0400 Heart rate 53 /min Dr. Kierra Santiago MD Work Phone: 2(700)023-937869 [place] [address] 10-08-2024 00:40-0400 Respiratory rate 13 /min Dr. Kierra Santiago MD Work Phone: 0(570)874-737369 [place] [address] 10-08-2024 00:40-0400 SaO2% (BldA) [Mass fraction] 93 % Dr. Kierra Santiago MD Work Phone: 8(965)786-785469 [place] [address] 10-08-2024 00:40-0400 Systolic blood pressure 113 mm[Hg] Dr. Kierra Santiago MD Work Phone: 0(199)810-507469 [place] [address] 10-08-2024 00:00-0400 Inhaled oxygen flow rate 2 L/min Dr. Kierra Santiago MD Work Phone: 3(554)561-423869 [place] [address] 10-07-2024 21:35-0400 Body mass index (BMI) [Ratio] 27.5 kg/m2 Dr. Kierra Santiago MD Work Phone: 3(459)575-953769 [place] [address] 10-07-2024 21:35-0400 Body weight 70.[address] Kierra Santiago MD Work Phone: 5(048)060-666269 [place] [address] 10-07-2024 21:21-0400 Body height 160.[address] Kierra Santiago MD Work Phone: 7(146)621-374969 [place] [address] 08-22-2024 13:24-0400 Body temperature 96.9 [degF] Dr. Kierra Santiago MD Work Phone: 9(182)217-216469 [place] [address] 08-22-2024 13:24-0400 Diastolic blood pressure 63 mm[Hg] Dr. Kierra Santiago MD Work Phone: 3(741)627-468169 [place] [address] 08-22-2024 13:24-0400 Heart rate 50 /min Dr. Kierra Santiago MD Work Phone: 6(606)664-941669 [place] [address] 08-22-2024 13:24-0400 Respiratory rate 16 /min Dr. Kierra Santiago MD Work Phone: 0(038)205-519069 [place] [address] 08-22-2024 13:24-0400 SaO2% (BldA) [Mass fraction] 99 % Dr. Kierra Santiago MD Work Phone: 6(233)875-291969 [place] [address] 08-22-2024 13:24-0400 Systolic blood pressure 175 mm[Hg] Dr. Kierra Santiago MD Work Phone: 2(417)283-521069 [place] [address] 08-22-2024 12:11-0400 Body height 160.[address] Kierra Santiago MD Work Phone: 9(763)676-900669 [place] [address] 08-22-2024 12:11-0400 Body mass index (BMI) [Ratio] 26.2 kg/m2 Dr. Kierra Santiago MD Work Phone: 1(203)760-663369 [place] [address] 08-22-2024 12:11-0400 Body weight 67.[address] Kierra Santiago MD Work Phone: 9(395)648-452569 [place] [address] 07-17-2024 10:06-0400 Body mass index (BMI) [Ratio] 25.4 kg/m2 Anastasiia Colón APRN.CNS Work Phone: [facility] 07-17-2024 10:06-0400 Body weight 64 kg Anastasiia Colón [employer] Work Phone: [facility] 07-17-2024 10:06-0400 Diastolic blood pressure 65 mm[Hg] Anastasiia Colón [employer] Work Phone: [facility] 07-17-2024 10:06-0400 Heart rate 60 /min Anastasiia Colón [employer] Work Phone: [facility] 07-17-2024 10:06-0400 Respiratory rate 16 /min Anastasiia Colón [employer] Work Phone: [facility] 07-17-2024 10:06-0400 Systolic blood pressure 131 mm[Hg] Anastasiia Colón [employer] Work Phone: [facility] 06-20-2024 09:55-0500 Body height 160.[address] Kierra Santiago MD Work Phone: [facility] 06-20-2024 09:55-0500 Body mass index (BMI) [Ratio] 24.7 kg/m2 Dr. Kierra Santiago MD Work Phone: [facility] 06-20-2024 09:55-0500 Body weight 63.[address] Kierra Santiago MD Work Phone: [facility] 06-20-2024 09:55-0500 Diastolic blood pressure 63 mm[Hg] Dr. Kierra Santiago MD Work Phone: [facility] 06-20-2024 09:55-0500 Heart rate 62 /min Dr. Kierra Santiago MD Work Phone: [facility] 06-20-2024 09:55-0500 Respiratory rate 18 /min Dr. Kierra Santiago MD Work Phone: [facility] 06-20-2024 09:55-0500 SaO2% (BldA) [Mass fraction] 98 % Dr. Kierra Santiago MD Work Phone: [facility] 06-20-2024 09:55-0500 Systolic blood pressure 143 mm[Hg] Dr. Kierra Santiago MD Work Phone: [facility] 06-12-2024 08:53-0500 Body temperature 97.4 [degF] Dr. Kierra Santiago MD Work Phone: [facility] 06-12-2024 08:53-0500 Body weight 64.[address] Kierra Santiago MD Work Phone: 9(106)528-398279 [place] [address] 06-12-2024 08:53-0500 Diastolic blood pressure 54 mm[Hg] Dr. Kierra Santiago MD Work Phone: [facility] 06-12-2024 08:53-0500 Heart rate 57 /min Dr. Kierra Santiago MD Work Phone: 7(264)677-513179 [place] [address] 06-12-2024 08:53-0500 Respiratory rate 14 /min Dr. Kierra Santiago MD Work Phone: [facility] 06-12-2024 08:53-0500 SaO2% (BldA) [Mass fraction] 97 % Dr. Kierra Santiago MD Work Phone: [facility] 06-12-2024 08:53-0500 Systolic blood pressure 128 mm[Hg] Dr. Kierra Santiago MD Work Phone: [facility] 06-04-2024 11:34-0500 Body height 158.8 cm Terrence Jane MD Work Phone: [facility] 06-04-2024 11:34-0500 Body mass index (BMI) [Ratio] 25.74 kg/m2 Terrence Jane MD Work Phone: [facility] 06-04-2024 11:34-0500 Body weight 64.86 kg Terrence Jane MD Work Phone: [facility] 06-04-2024 11:34-0500 Diastolic blood pressure 64 mm[Hg] Terrence Jane MD Work Phone: [facility] 06-04-2024 11:34-0500 Heart rate 63 /min Terrence Jane MD Work Phone: [facility] 06-04-2024 11:34-0500 Respiratory rate 12 /min Terrence Jane MD Work Phone: [facility] 06-04-2024 11:34-0500 SaO2% (BldA) [Mass fraction] 97 % Terrence Jane MD Work Phone: [facility] 06-04-2024 11:34-0500 Systolic blood pressure 142 mm[Hg] Terrence Jane MD Work Phone: [facility] 05-14-2024 13:32-0500 Body mass index (BMI) [Ratio] 25.7 kg/m2 Dr. Kierra Santiago MD Work Phone: [facility] 05-14-2024 13:32-0500 Body weight 65.[address] Kierra Santiago MD Work Phone: 9(749)959-920879 [place] [address] 05-14-2024 13:32-0500 Diastolic blood pressure 66 mm[Hg] Dr. Kierra Santiago MD Work Phone: [facility] 05-14-2024 13:32-0500 Heart rate 56 /min Dr. Kierra Santiago MD Work Phone: [facility] 05-14-2024 13:32-0500 Respiratory rate 18 /min Dr. Kierra Santiago MD Work Phone: [facility] 05-14-2024 13:32-0500 SaO2% (BldA) [Mass fraction] 97 % Dr. Kierra Santiago MD Work Phone: [facility] 05-14-2024 13:32-0500 Systolic blood pressure 146 mm[Hg] Dr. Kierra Santiago MD Work Phone: [facility] 05-08-2024 08:43-0500 Diastolic blood pressure 54 mm[Hg] Daylin Delgado DO Work Phone: [facility] 05-08-2024 08:43-0500 Heart rate 55 /min Daylin Delgado DO Work Phone: [facility] 05-08-2024 08:43-0500 SaO2% (BldA) [Mass fraction] 98 % Daylin Delgado DO Work Phone: [facility] 05-08-2024 08:43-0500 Systolic blood pressure 117 mm[Hg] Daylin Delgado DO Work Phone: [facility] 04-23-2024 14:34-0500 Body height 158.8 cm Terrence Jane MD Work Phone: [facility] 04-23-2024 14:34-0500 Body mass index (BMI) [Ratio] 25.74 kg/m2 Terrence Jane MD Work Phone: [facility] 04-23-2024 14:34-0500 Body weight 64.86 kg Terrence Jane MD Work Phone: [facility] 04-23-2024 14:34-0500 Diastolic blood pressure 56 mm[Hg] Terrence Jane MD Work Phone: [facility] 04-23-2024 14:34-0500 Heart rate 69 /min Terrence Jane MD Work Phone: [facility] 04-23-2024 14:34-0500 Respiratory rate 12 /min Terrence Jane MD Work Phone: [facility] 04-23-2024 14:34-0500 SaO2% (BldA) [Mass fraction] 100 % Terrence Jane MD Work Phone: [facility] 04-23-2024 14:34-0500 Systolic blood pressure 178 mm[Hg] Terrence Jane MD Work Phone: [facility] 04-17-2024 12:11-0500 Heart rate 61 /min Anastasiia Colón APRN.CNS Work Phone: [facility] 04-08-2024 10:49-0500 Body temperature 98.1 [degF] Dr. Kierra Santiago MD Work Phone: [facility] 04-08-2024 10:49-0500 Diastolic blood pressure 67 mm[Hg] Dr. Kierra Santiago MD Work Phone: 8(808)878-573079 [place] [address] 04-08-2024 10:49-0500 Heart rate 70 /min Dr. Kierra Santiago MD Work Phone: 6(210)677-997869 [place] [address] 04-08-2024 10:49-0500 Respiratory rate 18 /min Dr. Kierra Santiago MD Work Phone: 7(030)676-866069 [place] [address] 04-08-2024 10:49-0500 SaO2% (BldA) [Mass fraction] 96 % Dr. Kierra Santiago MD Work Phone: 1(805)021-370169 [place] [address] 04-08-2024 10:49-0500 Systolic blood pressure 132 mm[Hg] Dr. Kierra Santiago MD Work Phone: 4(670)836-209069 [place] [address] 04-08-2024 06:00-0500 Body mass index (BMI) [Ratio] 24.5 kg/m2 Dr. Kierra Santiago MD Work Phone: 5(258)949-382369 [place] [address] 04-08-2024 06:00-0500 Body weight 62.[address] Kierra Santiago MD Work Phone: 3(711)333-886779 [place] [address] 04-04-2024 10:00-0500 Body temperature 98.3 [degF] Dr. Kierra Santiago MD Work Phone: 3(154)373-333269 [place] [address] 04-04-2024 10:00-0500 Diastolic blood pressure 62 mm[Hg] Dr. Kierra Santiago MD Work Phone: 0(639)795-753479 [place] [address] 04-04-2024 10:00-0500 Heart rate 62 /min Dr. Kierra Santiago MD Work Phone: 4(814)248-764679 [place] [address] 04-04-2024 10:00-0500 Respiratory rate 16 /min Dr. Kierra Santiago MD Work Phone: [facility] 04-04-2024 10:00-0500 SaO2% (BldA) [Mass fraction] 94 % Dr. Kierra Santiago MD Work Phone: [facility] 04-04-2024 10:00-0500 Systolic blood pressure 143 mm[Hg] Dr. Kierra Santiago MD Work Phone: [facility] 04-04-2024 08:05-0500 Body mass index (BMI) [Ratio] 24.4 kg/m2 Dr. Kierra Santiago MD Work Phone: [facility] 04-04-2024 08:05-0500 Body weight 62.[address] Kierra Santiaog MD Work Phone: 8(790)058-184179 [place] [address] 02-23-2024 09:22-0400 Body mass index (BMI) [Ratio] 24.96 kg/m2 Anastasiia Colón [employer] Work Phone: [facility] 02-23-2024 09:22-0400 Body weight 62.9 kg Anastasiia Colón [employer] Work Phone: [facility] 02-23-2024 09:22-0400 Diastolic blood pressure 65 mm[Hg] Anastasiia Colón [employer] Work Phone: [facility] 02-23-2024 09:22-0400 Heart rate 77 /min Anastasiia Colón [employer] Work Phone: [facility] 02-23-2024 09:22-0400 Respiratory rate 16 /min Anastasiia Colón [employer] Work Phone: [facility] 02-23-2024 09:22-0400 Systolic blood pressure 96 mm[Hg] Anastasiia Colón [employer] Work Phone: [facility] 01-11-2024 16:55-0400 Body mass index (BMI) [Ratio] 27.06 kg/m2 Kierra Santiago MD Work Phone: [facility] 01-11-2024 16:55-0400 Body temperature 99.5 [degF] Kierra Santiago MD Work Phone: [facility] 01-11-2024 16:55-0400 Body weight 68.2 kg Kierra Santiago MD Work Phone: [facility] 01-11-2024 16:55-0400 Diastolic blood pressure 68 mm[Hg] Kierra Santiago MD Work Phone: [facility] 01-11-2024 16:55-0400 Heart rate 58 /min Kierra Santiago MD Work Phone: [facility] 01-11-2024 16:55-0400 Respiratory rate 18 /min Kierra Santiago MD Work Phone: [facility] 01-11-2024 16:55-0400 SaO2% (BldA) [Mass fraction] 94 % Kierra Santiago MD Work Phone: [facility] 01-11-2024 16:55-0400 Systolic blood pressure 124 mm[Hg] Kierra Santiago MD Work Phone: [facility] 12-31-2023 11:51-0400 Body mass index (BMI) [Ratio] 28.09 kg/m2 Krislyn Aberegg PA Work Phone: [facility] 12-31-2023 11:51-0400 Body temperature 98.71 [degF] Krislyn Aberegg PA Work Phone: [facility] 12-31-2023 11:51-0400 Body weight 70.8 kg Krislyn Aberegg PA Work Phone: [facility] 12-31-2023 11:51-0400 Heart rate 62 /min Krislyn Aberegg PA Work Phone: [facility] 12-31-2023 11:51-0400 Respiratory rate 20 /min Krislyn Aberegg PA Work Phone: [facility] 12-31-2023 11:51-0400 SaO2% (BldA) [Mass fraction] 89 % Krislyn Aberegg PA Work Phone: [facility] 12-11-2023 09:58-0400 Body mass index (BMI) [Ratio] 27.54 kg/m2 Krislyn Aberegg PA Work Phone: [facility] 12-11-2023 09:58-0400 Body temperature 101.1 [degF] Krislyn Aberegg PA Work Phone: [facility] 12-11-2023 09:58-0400 Body weight 69.4 kg Krislyn Aberegg PA Work Phone: [facility] 12-11-2023 09:58-0400 Diastolic blood pressure 84 mm[Hg] Krislyn Aberegg PA Work Phone: [facility] 12-11-2023 09:58-0400 Heart rate 98 /min Krislyn Aberegg PA Work Phone: [facility] 12-11-2023 09:58-0400 Respiratory rate 18 /min Krislyn Aberegg PA Work Phone: [facility] 12-11-2023 09:58-0400 SaO2% (BldA) [Mass fraction] 95 % Krislyn Aberegg PA Work Phone: [facility] 12-11-2023 09:58-0400 Systolic blood pressure 126 mm[Hg] Krislyn Aberegg PA Work Phone: [facility] 11-18-2023 11:03-0400 Body height 158.8 cm Tara Benavides APRN.[employer] Work Phone: [facility] 11-18-2023 11:03-0400 Body mass index (BMI) [Ratio] 26.82 kg/m2 Tara Benavides [employer] Work Phone: [facility] 11-18-2023 11:03-0400 Body weight 67.59 kg Tara Hritz [employer] Work Phone: [facility] 11-18-2023 11:03-0400 Diastolic blood pressure 78 mm[Hg] Tara Hritz [employer] Work Phone: [facility] 11-18-2023 11:03-0400 Heart rate 102 /min Tara Hritz [employer] Work Phone: [facility] 11-18-2023 11:03-0400 Systolic blood pressure 132 mm[Hg] Tara Hritz [employer] HE[employer] Work Phone: [facility] 11-14-2023 09:33-0400 Diastolic blood pressure 79 mm[Hg] Anastasiia Colón [employer] Work Phone: [facility] 11-14-2023 09:33-0400 Systolic blood pressure 150 mm[Hg] Anastasiia Colón [employer] Work Phone: [facility] 11-14-2023 09:31-0400 Body mass index (BMI) [Ratio] 26.28 kg/m2 Anastasiia Colón [employer] Work Phone: [facility] 11-14-2023 09:31-0400 Body weight 66.22 kg Anastasiia Colón [employer] Work Phone: [facility] 11-14-2023 09:31-0400 Heart rate 97 /min Anastasiia Colón [employer] Work Phone: [facility] 11-14-2023 09:31-0400 Respiratory rate 16 /min Anastasiia Colón [employer] Work Phone: [facility] 10-10-2023 11:44-0400 Body mass index (BMI) [Ratio] 25.38 kg/m2 Anastasiia Colón [employer] Work Phone: [facility] 10-10-2023 11:44-0400 Body weight 63.96 kg Anastasiia Colón [employer] Work Phone: [facility] 10-10-2023 11:44-0400 Diastolic blood pressure 71 mm[Hg] Anastasiia Colón [employer] Work Phone: [facility] 10-10-2023 11:44-0400 Heart rate 118 /min Anastasiia Colón [employer] Work Phone: [facility] 10-10-2023 11:44-0400 Respiratory rate 16 /min Anastasiia Colón [employer] Work Phone: [facility] 10-10-2023 11:44-0400 Systolic blood pressure 106 mm[Hg] Anastasiia Colón [employer] Work Phone: [facility] 10-04-2023 09:36-0400 Diastolic blood pressure 65 mm[Hg] Daylin Delgado DO Work Phone: [facility] 10-04-2023 09:36-0400 Systolic blood pressure 108 mm[Hg] Daylin Delgado DO Work Phone: [facility] 10-04-2023 09:30-0400 Heart rate 79 /min Daylin Delgado DO Work Phone: [facility] 10-04-2023 09:30-0400 SaO2% (BldA) [Mass fraction] 96 % Daylin Delgado DO Work Phone: [facility] 06-07-2023 09:02-0500 Body weight 68.95 kg Anastasiia Colón [employer] Work Phone: [facility] 06-07-2023 09:02-0500 Diastolic blood pressure 74 mm[Hg] Anastasiia Colón [employer] Work Phone: [facility] 06-07-2023 09:02-0500 Heart rate 97 /min Anastasiia Colón [employer] Work Phone: [facility] 06-07-2023 09:02-0500 SaO2% (BldA) [Mass fraction] 96 % Anastasiia Colón [employer] Work Phone: [facility] 06-07-2023 09:02-0500 Systolic blood pressure 126 mm[Hg] Anastasiia Colón [employer] Work Phone: [facility] 03-15-2023 10:48-0500 Diastolic blood pressure 78 mm[Hg] Lelo Barrie [employer] Work Phone: [facility] 03-15-2023 10:48-0500 Heart rate 74 /min Lelo Barrie [employer] Work Phone: [facility] 03-15-2023 10:48-0500 SaO2% (BldA) [Mass fraction] 97 % Lelo Barrie [employer].POPULATION HEALTH COACH Work Phone: [facility] 03-15-2023 10:48-0500 Systolic blood pressure 134 mm[Hg] Lelo Barrie [employer].POPULATION HEALTH COACH Work Phone: [facility] 02-04-2023 16:35-0400 Body weight 69.85 kg Kierra Santiago MD Work Phone: [facility] 02-04-2023 16:35-0400 Diastolic blood pressure 70 mm[Hg] Kierra Santiago MD Work Phone: [facility] 02-04-2023 16:35-0400 Heart rate 52 /min Kierra Santiago MD Work Phone: [facility] 02-04-2023 16:35-0400 SaO2% (BldA) [Mass fraction] 97 % Kierra Santiago MD Work Phone: [facility] 02-04-2023 16:35-0400 Systolic blood pressure 134 mm[Hg] Kierra Santiago MD Work Phone: [facility] 12-22-2022 10:28-0400 Body weight 69.85 kg Sheryl Eric [employer].POPULATION HEALTH COACH Work Phone: [facility] 12-22-2022 10:28-0400 Diastolic blood pressure 60 mm[Hg] Sheryl Eric [employer].POPULATION HEALTH COACH Work Phone: [facility] 12-22-2022 10:28-0400 Heart rate 81 /min Sheryl Eric [employer].POPULATION HEALTH COACH Work Phone: [facility] 12-22-2022 10:28-0400 SaO2% (BldA) [Mass fraction] 96 % Sheryl Reyes [employer].POPULATION HEALTH COACH Work Phone: [facility] 12-22-2022 10:28-0400 Systolic blood pressure 124 mm[Hg] Sheryl Reyes [employer].POPULATION HEALTH COACH Work Phone: [facility] 12-01-2022 11:00-0400 Diastolic blood pressure 75 mm[Hg] Pal Johnson MD Work Phone: [facility] 12-01-2022 11:00-0400 Heart rate 75 /min Pal Johnson MD Work Phone: [facility] 12-01-2022 11:00-0400 SaO2% (BldA) [Mass fraction] 97 % Pal Johnson MD Work Phone: [facility] 12-01-2022 11:00-0400 Systolic blood pressure 146 mm[Hg] Pal Johnson MD Work Phone: [facility] 10-12-2022 11:09-0400 Diastolic blood pressure 78 mm[Hg] Daylin Delgado DO Work Phone: [facility] 10-12-2022 11:09-0400 Heart rate 79 /min Daylin Delgado DO Work Phone: [facility] 10-12-2022 11:09-0400 SaO2% (BldA) [Mass fraction] 96 % Daylin Delgado DO Work Phone: [facility] 10-12-2022 11:09-0400 Systolic blood pressure 124 mm[Hg] Daylin Delgado DO Work Phone: [facility] 08-02-2022 09:38-0400 Body weight 71.67 kg Anastasiia Colón [employer].BLUEPRINT MAKER Work Phone: [facility] 08-02-2022 09:38-0400 Diastolic blood pressure 62 mm[Hg] Anastasiia Colón [employer].BLUEPRINT MAKER Work Phone: [facility] 08-02-2022 09:38-0400 Heart rate 76 /min Anastasiia Colón [employer].BLUEPRINT MAKER Work Phone: [facility] 08-02-2022 09:38-0400 Respiratory rate 16 /min Anastasiia Colón [employer] INTER[employer].BLUEPRINT MAKER Work Phone: [facility] 08-02-2022 09:38-0400 Systolic blood pressure 130 mm[Hg] Anastasiia Colón [employer].BLUEPRINT MAKER Work Phone: [facility] 07-01-2022 08:21-0500 Body height 158.8 cm Anastasiia Colón [employer] INTER[employer].BLUEPRINT MAKER Work Phone: [facility] 07-01-2022 08:21-0500 Body weight 71.67 kg Anastasiia Colón [employer] INTER[employer].BLUEPRINT MAKER Work Phone: [facility] 07-01-2022 08:21-0500 Diastolic blood pressure 66 mm[Hg] Anastasiia Colón [employer] INTER[employer].BLUEPRINT MAKER Work Phone: [facility] 07-01-2022 08:21-0500 Heart rate 67 /min Anastasiia Colón [employer].BLUEPRINT MAKER Work Phone: [facility] 07-01-2022 08:21-0500 Respiratory rate 16 /min Anastasiia Colón [employer].BLUEPRINT MAKER Work Phone: [facility] 07-01-2022 08:21-0500 SaO2% (BldA) [Mass fraction] 96 % Anastasiia Colón [employer] INTER[employer].BLUEPRINT MAKER Work Phone: [facility] 07-01-2022 08:21-0500 Systolic blood pressure 118 mm[Hg] Anastasiia Colón [employer] INTERNS[employer].BLUEPRINT MAKER Work Phone: [facility] Encounters Encounter Date Encounter Type Care Provider Facility Start: 01-22-2025 ambulatory Shaan Rojas Facility:[facility] Start: 01-21-2025 Encounter for other preprocedural examination Shaan Rojas [facility] Start: 01-16-2025 End: 01-16-2025 ambulatory KIERRA SANTIAGO Facility:[facility] Start: 12-27-2024 End: 12-27-2024 Anticoagulant drug monitoring [facility] Work Phone: [facility] Comment on above: Factor V deficiency (HCC) (Primary Dx) Start: 12-27-2024 End: 12-27-2024 ambulatory KIERRA D TALAMPAS Facility:[facility] Start: 12-20-2024 End: 12-20-2024 Anticoagulant drug monitoring [facility] Work Phone: [facility] Comment on above: Factor V deficiency (HCC) (Primary Dx) Start: 12-20-2024 End: 12-20-2024 ambulatory KIERRA D TALAMPAS Facility:[facility] Start: 12-13-2024 Encounter for prepro cedural cardiovascular examination Dominick Harrell [facility] Start: 12-13-2024 End: 12-13-2024 Patient encounter procedure Dominick Harrell ASBESTOS COVERER- -[facility] Work Phone: Start: 12-13-[address] Spencer Santiago MD Work Phone: [facility] Start: 12-13-2024 End: 12-13-2024 Anticoagulant drug monitoring [facility] Work Phone: [facility] Comment on above: Factor V deficiency (HCC) (Primary Dx) Start: 12-13-2024 End: 12-13-[address] Kierra Santiago MD Work Phone: [facility] Start: 12-06-2024 End: 12-06-2024 ambulatory KIERRA D TALAMPAS Facility:[facility] Start: 11-28-2024 End: 11-28-2024 Anticoagulant drug monitoring [facility] Work Phone: [facility] Comment on above: Factor V deficiency (HCC) (Primary Dx) Start: 11-28-2024 End: 11-28-2024 ambulatory KIERRA D TALAMPAS Facility:[facility] Start: 11-15-2024 End: 11-15-2024 Refill Kierra Santiago MD Work Phone: [address] [place] [address] Comment on above: Refill Request Start: 10-31-2024 End: 10-31-[address] Shaan Rojas MD -[facility] Work Phone: Start: 10-31-2024 End: 10-31-[address] Kierra Santiago MD Work Phone: -[facility] Start: 10-30-2024 End: 10-30-2024 ambulatory KIERRA SANTIAGO Facility:[facility] Start: 10-29-2024 End: 10-31-2024 Telephone encounter Kierar Santiago MD Work Phone: [facility] [place] Comment on above: Medication Problem ( Glimepiride/) Start: 10-24-2024 End: 10-24-2024 Office outpatient visit 25 minutes Kierra Santiago MD Work Phone: [facility] [place] Comment on above: Anemia, unspecified type (Primary Dx); Acute gastric ulcer, unspecified whether gastric ulcer hemorrhage or perforation present; Duodenal ulcer; Type 2 diabetes mellitus with diabetic polyneuropathy, without long-term current use of insulin (HCC); Stage 3b chronic kidney disease (HCC); Chronic atrial fibrillation (HCC); Factor V Leiden mutation (HCC); Peripheral vascular disease; 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 Blanco Monae DO -[facility] Work Phone: Start: 10-10-2024 ambulatory Kierra Santiago Facilit y:[facility] Start: 10-09-2024 Non-patient / Non-visit Robb Cummins nd, DO [facility] Start: 10-09-2024 Non-patient / Non-visit Dr. Candelaria Herrera MD -[facility] Start: 10-08-2024 Non-patient / Non-visit Robb Cummins nd [facility] Start: 10-08-2024 Non-patient / Non-visit Dr. Blanco Monae -[facility] Work Phone: Start: 10-08-2024 Non-patient / Non-visit Dr. Candelaria Herrera MD -[facility] Start: 10-07-2024 Non-patient / Non-visit Dr. Bahrti Muñoz MD -[facility] Work Phone: Start: 10-07-2024 ambulatory Roly Herrera Facility :[facility] Start: 10-07-2024 End: 10-10-2024 Evaluation and management of inpatient Dr. Kelsie Muñoz MD -Progressive Care Unit Work Phone: Start: 10-06-2024 Encounter for prepro cedural laboratory examination Laura Crowell [facility] Start: 10-02-2024 End: 10-02-[address] Kierra Santiago MD Work Phone: [facility] Work Phone: Start: 10-02-2024 End: 10-02-[address] Eugene Blanca DPM -Cardiovascular Services Work Phone: Start: 10-01-2024 End: 10-02-[address] Kierra Santiago MD Work Phone: [facility] Work Phone: Start: 10-01-2024 End: 10-01-2024 Patient encounter procedure Laura Steelehn PA -[facility] Work Phone: Start: 10-01-2024 End: 10-01-2024 ambulatory Kierra Santiago Facility:[facility] Start: 09-11-2024 End: 09-11-2024 Anticoagulant drug monitoring [facility] Work Phone: [facility] Comment on above: Factor V deficiency (HCC) (Primary Dx) Start: 09-11-2024 End: 09-11-2024 ambulatory KIERRA D HERMELINDOAMPAS Facility:[facility] Start: 09-06-2024 End: 09-29-2024 Discharged Recurring Self Referred -Nutritional Servic es Work Phone: Start: 09-06-2024 End: 09-29-[address] Kierra Santiago MD Work Phone: [facility] Work Phone: Start: 08-28-2024 ambulatory Kierra Valadezampas Facilit y:[facility] Start: 08-28-2024 Non-patient / Non-visit Dr. Shaan hung MD -[facility] Start: 08-28-2024 End: 08-28-2024 Patient encounter procedure Laura SEGURA -Cardiovascu lar Services Work Phone: Start: 08-28-2024 End: 08-28-2024 ambulatory Kierra D Talampas Facility:[facility] Start: 08-22-2024 ambulatory Kierra D Talampas Facilit y:[facility] Start: 08-22-2024 Non-patient / Non-visit Robb Cummins nd, DO -[facility] Start: 08-22-2024 End: 08-22-2024 Admission to same day surgery center Robb Giron DO -Endoscopy Work Phone: Start: 08-22-2024 End: 08-22-2024 ambulatory Kierra D Talampas Facility:[facility] Start: 08-21-2024 End: 08-21-2024 [facility]agulant drug [facility] Comment on above: Factor V deficiency (HCC) (Primary Dx) Start: 08-21-2024 End: 08-21-2024 ambulatory KIERRA D TALAMPAS Facility:[facility] Start: 08-15-2024 End: 08-15-[address] Kierra Santiago MD Work Phone: [facility] Work Phone: Start: 08-15-2024 End: 08-15-2024 Patient encounter procedure Dominick Harrell NP-C -Laboratory Work Phone: Start: 08-15-2024 End: 08-15-2024 ambulatory Kierra Santiago Facility:[facility] Start: 08-06-2024 End: 08-07-2024 Refill Kierra Santiago MD Work Phone: [facility] [place] Comment on above: Refill Request Start: 07-31-2024 End: 07-31-2024 Telephone encounter Kierra Santiago MD Work Phone: [facility] Comment on above: Orders (poc protime) Start: 07-31-2024 End: 07-31-2024 ambulatory KIERRA SANTIAGO Facility:[facility] Start: 07-31-2024 End: 07-31-2024 Anticoagulant drug monitoring [facility] Work Phone: [facility] Comment on above: Factor V deficiency (HCC) (Primary Dx) Start: 07-25-2024 End: 07-25-[address] Kierra Santiago MD Work Phone: [facility] Work Phone: Start: 07-25-2024 End: 07-25-2024 Patient encounter procedure Dominick Harrell NP-C -Laboratory Work Phone: Start: 07-25-2024 End: 07-25-2024 ambulatory Kierra Santiago Facility:[facility] Start: 07-17-2024 End: 07-17-2024 Anticoagulant drug monitoring [facility] Work Phone: [facility] Comment on above: Factor V deficiency (HCC) (Primary Dx) Refill Request Start: 07-17-2024 End: 07-17-2024 ambulatory KIERRA SANTIAGO Facility:[facility] Start: 07-17-2024 End: 07-17-2024 Office outpatient visit 25 minutes Anastasiia Colón JONNY Work Phone: [facility] [place] Comment on above: 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, without long-term current use of insulin (HCC) (Primary Dx); Hypokalemia; Other acute sinusitis; Decreased hearing of both ears; Subclinical hypothyroidism; History of anemia; S/P transmetatarsal amputation of foot, right (HCC); Stage 3b chronic kidney disease (HCC) Start: 07-11-2024 End: 07-11-2024 Home visit Kierra Santiago MD Work Phone: [facility] [place] Comment on above: 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 Kierra Santiago MD Work Phone: [facility] Work Phone: Start: 07-10-2024 End: 07-10-2024 Patient encounter procedure Dominick Harrell NP-C -Laboratory Work Phone: Start: 07-10-2024 End: 07-10-2024 ambulatory Kierra Santiago Facility:[facility] Start: 07-05-2024 End: 07-05-2024 Anticoagulant drug monitoring [facility] Work Phone: [facility] Comment on above: Factor V deficiency (HCC) (Primary Dx) Start: 07-05-2024 End: 07-05-2024 ambulatory KIERRA SANTIAGO Facility:[facility] Start: 06-28-2024 End: 06-28-2024 [facility] Start: 06-28-2024 End: 06-29-2024 Anticoagulant drug monitoring [facility] Work Phone: [facility] Comment on above: Factor V deficiency (HCC) (Primary Dx) Refill Request Start: 06-20-2024 End: 06-20-2024 ambulatory Kierra D Talampas Facility:[facility] Start: 06-20-2024 End: 06-20-2024 Patient encounter procedure Dominick YUN -[facility] Work Phone: Start: 06-19-2024 End: 06-19-2024 Patient encounter procedure Ese SEGURA -[facility] Work Phone: Start: 06-19-2024 End: 06-20-2024 ambulatory Ese Hillman Facility:[facility] Start: 06-14-2024 End: 06-14-2024 [facility]ticoagulant drug monitoring [facility] Work Phone: [facility] [place] Comment on above: Factor V deficiency (HCC) (Primary Dx) Start: 06-14-2024 End: 06-14-2024 ambulatory KIERRA D TALAMPAS Facility:[facility] Start: 06-13-2024 End: 06-13-2024 Patient encounter procedure Laura SEGURA -Laboratory, Specimen Work Phone: Start: 06-12-2024 End: 06-12-2024 Patient encounter procedure Laura SEGURA -[facility] Work Phone: Start: 06-12-2024 End: 06-13-2024 ambulatory Kierra D Talampas Facility:[facility] Start: 06-04-2024 End: 06-04-2024 ambulatory KIERRA D TALAMPAS Facility:[facility] Start: 06-04-2024 End: 06-04-2024 Patient encounter procedure Terrence Jane MD Work Phone: Cardiology Comment on above: Pure hypercholestero lemia (Primary Dx); Primary hypertension; Factor V deficiency (HCC); Acute on chronic congestive heart failure, unspecified heart failure type (HCC); Atrial fibrillation, unspecified type (HCC) Start: 05-29-2024 End: 05-29-2024 Telephone encounter Daylin Delgado DO Work Phone: Vascular Surgery Comment on above: Appointment Start: 05-28-2024 ambulatory Kierra D Talampas Facilit y:[facility] Start: 05-28-2024 Non-patient / Non-visit Dr. Shaan hnug MD -[facility] Start: 05-28-2024 End: 05-28-[address] Shaan Rojas MD -Cardiovascu lar Services Work Phone: Start: 05-28-2024 End: 05-28-2024 ambulatory Roly Herrera Facility:[facility] Start: 05-23-2024 End: 05-23-2024 Telephone encounter Kierra Santiago MD Work Phone: [facility] [place] Comment on above: Anticoagulation Start: 05-21-2024 End: 05-21-2024 Telephone encounter Terrence Jaen MD Work Phone: Cardiology Comment on above: Results Start: 05-16-2024 End: 05-18-2024 Telephone encounter Kierra Santiago MD Work Phone: [facility] [place] Comment on above: Patient Update; Anti coagulation Start: 05-14-2024 End: 05-14-[address] Roly Herrera MD -[place] [facility] Work Phone: Start: 05-14-2024 End: 05-16-2024 Refill Kierra Santiago MD Work Phone: [facility] [place] Comment on above: Refill Request Symptoms Start: 05-12-2024 End: 05-12-2024 ambulatory Nallely An RN NURSE TOXICOLOGIST Comment on above: Hypertension Start: 05-09-2024 End: 05-09-2024 Telephone encounter Kierra Santiago MD Work Phone: [facility] [place] Comment on above: Patient Update; Anti coagulation Start: 05-08-2024 End: 05-08-2024 Patient encounter procedure Daylin Delgado DO Work Phone: Vascular Surgery Comment on above: Occlusion and stenos is of unspecified carotid artery (Primary Dx) Start: 05-08-2024 End: 05-08-2024 ambulatory KIERRA SANTIAGO Facility:[facility] Start: 05-03-2024 End: 05-19-2024 Telephone encounter Kierra Santiago MD Work Phone: [facility] [place] Comment on above: Home Care Management Refill [...] hypertension; Heart murmur Start: 04-23-2024 End: 04-23-2024 [facility] Facility:[facility] Start: 04-23-2024 End: 04-24-2024 Telephone encounter Kierra Santiago MD Work Phone: [facility] [place] Comment on above: [facility] HH - INR message Start: 04-18-2024 End: 04-20-2024 Telephone encounter Kierra Santiago MD Work Phone: [facility] [place] Comment on above: Anticoagulation Start: 04-17-2024 End: 04-17-2024 ambulatory KIERRA SANTIAGO Facility:[facility] Start: 04-17-2024 End: 04-17-2024 Office outpatient visit 25 minutes [facility] [employer]UE[employer] Work Phone: [facility] [place] Comment on [...] Kierra Santiago MD Work Phone: [facility] [place] Comment on above: Orders Start: 04-11-2024 End: 04-12-2024 Telephone encounter Kierra Santiago MD Work Phone: [facility] [place] Comment on above: Question Start: 04-09-2024 End: 04-09-2024 Telephone encounter Kierra Santiago MD Work Phone: [facility] [place] Comment on above: Home Care Management Start: 04-09-2024 End: 04-09-2024 ambulatory KIERRA Tee SANTIAGO Facility:[facility] Start: 04-06-2024 End: 04-10-2024 ambulatory Kierra Santiago MD Work Phone: [facility] [place] Start: 04-05-2024 End: 04-05-2024 Telephone encounter Kierra Santiago MD Work Phone: [facility] [place] Comment on above: Home Health Orders Start: 04-05-2024 Non-patient / Non-visit Laura Crowell [facility] Start: 04-05-2024 ambulatory Kierra D Hermelindoampas Facilit y:[facility] Start: 04-04-2024 ambulatory Kierra D Talampas Facilit y:[facility] Start: 04-04-2024 Non-patient / Non-visit Robb Cummins nd, DO -[facility] Start: 04-04-2024 End: 04-04-2024 Admission to same day surgery center Robb Giron DO -Endoscopy Work Phone: Start: 04-04-2024 End: 04-04-2024 ambulatory Kierra D Hermelindoampas Facility:[facility] Start: 04-02-2024 Non-patient / Non-visit Robb Cummins nd DO -[facility] Start: 03-27-2024 Non-patient / Non-visit Laura Crowell [facility] Start: 03-23-2024 Non-patient / Non-visit Laura Crowell [facility] Start: 03-19-2024 ambulatory Kierra D Talampas Facilit y:[facility] Start: 03-19-2024 End: 04-08-2024 Evaluation and management of inpatient Dr. Jason Smith MD -Transitional Care Unit Start: 03-13-2024 End: 03-13-2024 ambulatory Kierra D Talampas Facility:[facility] Start: 03-12-2024 ambulatory Kierra D Talampas Facilit y:[facility] Start: 03-09-2024 ambulatory Kierra D Talampas Facilit y:[facility] Start: 03-08-2024 ambulatory Laurabeulah Crowell Facility:[facility] Start: 03-08-2024 ambulatory Suresh Hathaway ty:[facility] Start: 03-08-2024 End: 03-19-2024 Evaluation and management of inpatient Jaimie Vargas Facility:[facility] Start: 03-07-2024 End: 03-09-2024 Telephone encounter Kierra Santiago MD Work Phone: [facility] [place] Comment on above: Patient Update Start: 03-01-2024 End: 03-01-2024 Anticoagulant drug monitoring [facility] Work Phone: [facility] [place] Comment on above: Factor V deficiency (HCC) (Primary Dx) Start: 03-01-2024 End: 03-01-2024 ambulatory KIERRA D TALAMPAS Facility:[facility] Start: 03-01-2024 End: 03-01-2024 ambulatory Laura Crowell Facility:[facility] Start: 02-29-2024 End: 03-03-2024 Telephone encounter Kierra Santiago MD Work Phone: [facility] [place] Comment on above: Patient Update Start: 02-27-2024 End: 02-27-2024 ambulatory KIERRA D TALAMPAS Facility:[facility] Start: 02-27-2024 End: 02-27-2024 [facility]ticoagulant drug monitoring [facility] Work Phone: [facility] [place] Comment on above: Factor V deficiency (HCC) (Primary Dx) Start: 02-24-2024 End: 02-24-2024 Telephone encounter Anastasiia Colón APRN.BLUEPRINT MAKER Work Phone: [facility] [place] Start: 02-23-2024 End: 02-23-2024 Telephone encounter Anastasiia Colón APRN.BLUEPRINT MAKER Work Phone: [facility] [place] Comment on above: Anticoagulation Start: 02-23-2024 End: 02-23-2024 ambulatory KIERRA SANTIAGO Facility:[facility] Start: 02-23-2024 End: 02-23-2024 Office outpatient visit 25 minutes Anastasiia Colón APRN.BLUEPRINT MAKER Work Phone: [facility] [place] Comment on [...] Start: 02-23-2024 End: 02-23-2024 ambulatory KIERRA SANTIAGO Facility:[facility] Start: 02-14-2024 End: 02-14-2024 ambulatory [facility] Facility:[facility] Start: 02-13-2024 End: 02-13-2024 Telephone encounter Kierra Santiago MD Work Phone: [facility] [place] Comment on above: [facility] PT POC Start: 02-09-2024 End: 02-13-2024 Telephone encounter Kierra Santiago MD Work Phone: [facility] [place] Comment on above: Home Health Point of Care Results Start: 02-08-2024 ambulatory Shaan Rojas Facility:[facility] Start: 02-08-2024 End: 02-08-2024 Telephone encounter Kierra Santiago MD Work Phone: [facility] [place] Comment on above: Home Health Orders Start: 02-08-2024 End: 02-08-2024 ambulatory Laura Crowell Facility:[facility] Start: 01-27-2024 End: 02-08-2024 Evaluation and management of inpatient Kierra Santiago Facility:[facility] Start: 01-14-2024 End: 01-14-2024 Patient Outreach Nancy Albert RN Work Phone: [employer] Comment on above: Transition Of Care S tarted Weekly phone contact (Recurring) for Transitional Care Management Start: 01-13-2024 End: 01-13-2024 Patient encounter procedure Nataliia Rehman APRN.POPULATION HEALTH COACH Work Phone: [facility] Comment on above: Pain (Primary Dx) Start: 01-11-2024 End: 01-11-2024 Transitional care manage srvc 14 day discharge Kierra Santiago MD Work Phone: [facility] [place] Comment on above: Acute on chronic con gestive heart failure, unspecified heart failure type (HCC) (Primary Dx); Type 2 diabetes mellitus with diabetic polyneuropathy, without long-term current use of insulin (HCC); Hypokalemia; Leg cramp; Ulcer of right foot, limited to breakdown of skin (HCC); Callus of foot; Dependent rubor Start: 01-06-2024 End: 01-06-2024 Patient Outreach Nancy Albert RN Work Phone: [employer] Comment on above: Initial phone contac t for Transitional Care Management Start: 01-05-2024 End: 01-05-2024 Anticoagulant drug monitoring [facility] Work Phone: [facility] [place] Comment on above: Factor V deficiency (HCC) (Primary Dx) Start: 12-31-2023 End: 12-31-2023 Patient encounter procedure Jean Pierre Davis PA Work Phone: [facility] Comment on above: Hypoxia (Primary Dx) Start: 12-30-2023 End: 12-30-2023 Refill Kierra Santiago MD Work Phone: [facility] [place] Comment on above: Refill Request Start: 12-27-2023 End: 12-27-2023 Telephone encounter Kierra Santiago MD Work Phone: Internal Medicine [place] Comment on above: Labs needed? Start: 12-12-2023 Telephone encounter Jean Pierre SEGURA Work Phone: [facility] Comment on above: Results Start: 12-12-2023 End: 12-12-2023 Subsequent hospital visit by physician [facility] [place] Work Phone: Radiology Comment on above: Acute cough [R05.1] Start: 12-11-2023 End: 12-11-2023 Patient encounter procedure Jean Pierre SEGURA Work Phone: [facility] Comment on above: Acute cough (Primary Dx); URI, acute Start: 12-08-2023 End: 12-08-2023 Anticoagulant drug monitoring Anticoag [facility] Work Phone: [facility] [place] Comment on above: Factor V deficiency (HCC) (Primary Dx) Start: 11-30-2023 End: 11-30-2023 Subsequent hospital visit by physician [facility] [employer] Work Phone: Radiology Comment on above: Elevated alanine ami notransferase (ALT) level [R74.01] Start: 11-18-2023 End: 11-18-2023 Office outpatient new 30 minutes Tara Benavides [employer].POPULATION HEALTH COACH Work Phone: Gastroenterology [place] Comment on above: Elevated alanine ami notransferase (ALT) level (Primary Dx) Start: 11-14-2023 End: 11-14-2023 Patient encounter procedure Nurse Card Admin [facility] Work Phone: Cardiology Comment on above: Chest pain, unspecif ied type Start: 11-14-2023 End: 11-14-2023 Office outpatient visit 25 minutes Anastasiia Colón APRN.[employer] Work Phone: [facility] [place] Comment on above: Chest pain, unspecif ied type (Primary Dx); Encounter for immunization; Type 2 diabetes mellitus with hyperglycemia, without long-term current use of insulin (HCC); Lung nodules; Transaminitis; Factor 5 Leiden mutation, heterozygous (HCC) Start: 11-10-2023 End: 11-10-2023 Anticoagulant drug monitoring Anticoag [facility] Work Phone: [facility] [place] Comment on above: Factor V deficiency (HCC) (Primary Dx) Start: 11-08-2023 ambulatory Nurse Card Adm in [facility] Work Phone: Cardiology Comment on above: Stress Test Instruct ions for 11/14/23 Start: 11-08-2023 E-mail encounter etienne crow caregiver Nurse Card Admin [facility] Work Phone: Cardiology Start: 11-07-2023 Telephone encounter Anastasiia vigil [employer] Work Phone: [facility] [place] Comment on above: Results Start: 11-06-2023 Orders Only Anastasiia Colón [employer]UE[employer] Work Phone: [facility] [place] Comment on above: 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, without long-term current use of insulin (HCC) (Primary Dx) Start: 11-04-2023 Refill Kierra adler MD Work Phone: [facility] [place] Comment on above: Refill Request Start: 10-24-2023 End: 10-24-2023 Subsequent hospital visit by physician [facility] ([facility]) Work Phone: Cat Scan Comment on above: Lung nodules [R91.8] Start: 10-13-2023 End: 10-13-2023 Anticoagulant drug monitoring Anticoag [facility] Work Phone: [facility] [place] Comment on above: Factor V deficiency (HCC) (Primary Dx) Start: 10-12-2023 End: 10-12-2023 Nursing evaluation of patient and report Suresh Varela RN Work Phone: Endocrinology Comment on above: Uncontrolled type 2 diabetes mellitus with hyperglycemia (HCC) Start: 10-11-2023 Telephone encounter Joshua Koch MD Work Phone: [facility] [place] Comment on above: high blood sugars Patient Update Start: 10-10-2023 End: 10-10-2023 Office outpatient visit 25 minutes Anastasiia Colón APRN.[employer] Work Phone: Internal Medicine [place] Comment on [...] above: Refill Request Start: 10-04-2023 End: 10-04-2023 Patient encounter procedure Dalyin Delgado DO Work Phone: Vascular Surgery Comment on above: Bilateral carotid ar jaime stenosis (Primary Dx) Start: 09-23-2023 End: 09-23-2023 Patient encounter procedure Nataliiathierry Rehman APRN.POPULATION HEALTH COACH Work Phone: [facility] Comment on above: Left arm numbness (P rimary Dx) Start: 09-15-2023 End: 09-15-[address] [facility]: [facility] [place] Comment on above: Factor V deficiency (HCC) (Primary Dx) Start: 08-18-2023 End: 08-18-2023 [facility] Work [facility] [place] Comment on above: Factor V deficiency (HCC) (Primary Dx) Start: 07-21-2023 Telephone encounter Kierra angulo MD Work Phone: [facility] [place] Comment on above: Orders (protime) Start: 07-21-2023 End: 07-21-2023 [facility] [place] Comment on above: Factor V deficiency (HCC) (Primary Dx) Start: 07-14-2023 Refill Kierra adler MD Work Phone: [facility] [place] Comment on above: Refill Request Start: 06-30-2023 End: 06-30-[address] [facility] Work Phone: [facility] [place] Comment on above: Factor V deficiency (HCC) (Primary Dx) Start: 06-16-2023 End: 06-16-[address] [facility] Work Phone: [facility] [place] Comment on above: Factor V deficiency (HCC) (Primary Dx) Start: 06-07-2023 End: 06-07-2023 Office outpatient visit 25 minutes Anastasiia Colón APRN.[employer]UEPRINT MAKER Work Phone: [facility] [place] Comment on above: Type 2 diabetes mingo [...] Start: 06-02-2023 End: 06-02-[address] [facility] Work Phone: [facility] [place] Comment on above: Factor V deficiency (HCC) (Primary Dx) Start: 05-02-2023 ambulatory Alice Mcneill RN NURSE O N CALL Comment on above: Pain, Sinus Start: 03-30-2023 End: 03-30-[address] [facility] Work Phone: [facility] [place] Comment on above: Factor V deficiency (HCC) (Primary Dx) Start: 03-15-2023 End: 03-15-2023 Office outpatient visit 25 minutes Lelo Sood APRN.POPULATION HEALTH COACH Work Phone: Vascular Surgery Comment on above: Bilateral carotid ar jaime stenosis (Primary Dx); Primary hypertension; Elevated HDL; Factor 5 Leiden mutation, heterozygous (HCC) Start: 02-24-2023 End: 02-24-[address] [facility] Work Phone: [facility] [place] Comment on above: Factor V deficiency (HCC) (Primary Dx) Start: 02-15-2023 Telephone encounter Kierra angulo MD Work Phone: Family [facility] [place] Comment on above: Info for diabetic sh oes Start: 02-04-2023 End: 02-04-2023 Office outpatient visit 40 minutes Kierra Santiago MD Work Phone: [facility] [place] Comment on above: 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, without long-term current use of insulin (HCC) (Primary Dx); Stenosis of carotid artery, unspecified laterality; History of carotid endarterectomy; Primary hypertension; Factor V deficiency (HCC); Encounter for long-term current use of medication; Mixed hyperlipidemia; Chronic cough; Need for influenza vaccination; Encounter for immunization Start: 01-27-2023 End: 01-27-[address] [facility] Work Phone: [facility] [place] Comment on above: Factor V deficiency (HCC) (Primary Dx) Start: 01-20-2023 End: 01-20-[address] [facility] Work Phone: [facility] [place] Comment on above: Factor V deficiency (HCC) (Primary Dx) Start: 01-05-2023 Refill Kierra adler MD Work Phone: [facility] [place] Comment on above: Refill Request Start: 12-22-2022 End: 12-22-2022 Patient encounter procedure Sheryl Reyes APRN.POPULATION HEALTH COACH Work Phone: [facility] [place] Comment on above: Stress and adjustmen t reaction (Primary Dx); Sleep disturbance; Type 2 diabetes mellitus with diabetic polyneuropathy, without long-term current use of insulin (HCC) Start: 12-20-2022 Telephone encounter Kierra angulo MD Work Phone: [facility] [place] Comment on above: Patient Question (He r 3 mo appointment) Refill Request Start: 12-16-2022 End: 12-16-2022 Anticoagulant drug monitoring [facility] [employer] Work Phone: [facility] [place] Comment on above: Factor V deficiency (HCC) (Primary Dx) Start: 12-02-2022 ambulatory Kierra adler MD Work Phone: Pharm [facility] Comment on above: Allied Health Visit (Medication Adherence Outreach/) Start: 12-01-2022 End: 12-01-2022 Patient encounter procedure Pal Johnson MD Work Phone: Vascular Surgery Comment on above: Carotid stenosis, as ymptomatic, bilateral (Primary Dx) Start: 11-22-2022 End: 11-22-2022 Subsequent hospital visit by physician [facility] [employer] ([employer] Work Phone: Cat Scan Comment on above: Lung nodules [R91.8] Start: 11-18-2022 End: 11-18-2022 Anticoagulant drug monitoring [facility] [employer] Work Phone: [facility] [place] Comment on above: Factor V deficiency (HCC) (Primary Dx) Start: 10-28-2022 End: 10-28-2022 Anticoagulant drug monitoring [facility] [employer] Work Phone: [facility] [place] Comment on above: Factor V deficiency (HCC) Start: 10-12-2022 End: 10-12-2022 Patient encounter procedure Daylin Delgado DO Work Phone: Vascular Surgery Comment on above: Stenosis of carotid artery, unspecified laterality; History of carotid endarterectomy; History of transient ischemic attack (TIA); Stenosis of left carotid artery Start: 10-12-2022 End: 10-12-2022 Subsequent hospital visit by physician [facility] [employer] ([employer] Work Phone: Cat Scan Comment on above: Occlusion and stenos is of unspecified carotid artery [I65.29] Start: 09-30-2022 End: 09-30-2022 Anticoagulant drug monitoring [facility] [employer] Work Phone: [facility] [place] Comment on above: Factor V deficiency (HCC) Start: 08-31-2022 Telephone encounter Anastasiia vigil [employer] Work Phone: [facility] [place] Comment on above: Results Start: 08-24-2022 Telephone encounter Kierra angulo MD Work Phone: Family [facility] [place] Comment on above: Patient Question; An ticoagulation Start: 08-18-2022 End: 08-18-2022 Subsequent hospital visit by physician Bone Density [facility] Work Phone: Radiology Comment on above: Screening for osteop orosis [Z13.820] Start: 08-10-2022 Telephone encounter Anastasiia vigil [employer]UE[employer] Work Phone: Internal Medicine [place] Comment on above: Results (Carotid ult rasound) Start: 08-02-2022 Telephone encounter Anastasiia vigil [employer]UE[employer] MAKER Work Phone: [facility] [place] Comment on above: Anticoagulation Start: 08-02-2022 End: 08-02-2022 Office outpatient visit 15 minutes Anastasiia Colón [employer]UE[employer] MAKER Work Phone: [facility] [place] Comment on above: Type 2 diabetes mingo itus with hyperglycemia, without long-term current use of insulin (HCC) (Primary Dx); Encounter for immunization; Screening for diabetic retinopathy; Screening for osteoporosis; Asymptomatic menopause Start: 07-02-2022 Telephone encounter Anastasiia vigil [employer] Work Phone: [facility] [place] Comment on above: Results Start: 07-01-2022 End: 07-01-2022 Office outpatient visit 25 minutes Anastasiia Colón [employer] INTER[employer]UE[employer] Work Phone: [facility] [place] Comment on above: Routine medical exam (Primary [...] End: 07-01-2022 Patient encounter status Anastasiia Colón [employer].BLUE[employer] MAKER Work Phone: Internal [facility] [place] Procedures Date Procedure Procedure Detail Performing Clinician Start: 10-10-[address] Kierra Santiago MD Work Phone: Start: 10-10-[address] Kierra holland MD Work Phone: Start: 10-09-[address] Kierra pérez MD Work Phone: Start: 10-09-2024 Blood disorder - initial assessment Dr. Kierra Santiago MD Work Phone: Start: 10-08-[address] Kierra Santiago MD Work Phone: Start: 10-07-2024 X-ray of chest, PA and [...] 06-20-[address]ardia [address] assay Dr[address] Kierra cedeño MD Work Phone: Start: 06-20-2024 Nucleic acid [...] Start: 05-09-2024 Prothrombin time [facility] Provider Start: 05-01-2024 Prothrombin time [facility] Provider Start: [...] Start: 12-12-2023 Radiologic exam chest 2 views Jean Pierre SEGURA Work Phone: Start: 11-30-2023 Us abdominal real time w/image limited Tara Benavides [employer] INTER[employer].POPULATION HEALTH COACH Work Phone: Start: 11-14-2023 Echo tthrc r-t 2d w/wo m-mode complete rest&st Anastasiia Colón [employer] Work Phone: Start: 11-14-2023 Adult depression screening assessment Echocardiogram [facility] Work Phone: Start: 02-04-2023 [employer] COVID-19 VACCINE ( SEASON) AGE 12+ YR Kierra Santiago MD Work Phone: Start: 02-04-2023 INFLUENZA VACCINE, PRSV FREE, AGE 65+ YR, HIGH DOSE, QUADRIVALENT (FLUZONE HIGH-DOSE) Kierra Santiago MD Work Phone: Start: 11-22-2022 Ct thorax w/o contrast material Daylin Delgado DO Work Phone: Start: 10-12-2022 Ct angiography head w/contrast/noncontrast Daylin Delgado DO Work Phone: Start: 10-12-2022 Ct angiography neck w/contrast/noncontrast Daylin Delgado DO Work Phone: Start: 08-18-2022 Dxa bone density study 1/> sites axial skel Anastasiiacornelius Colón [employer] INTER[employer]UE[employer] Work Phone: History of carotid endarterectom y History of carotid endarterectomy Anastasiia Colón [employer]UE[employer] Work Phone: History of carotid endarterectom y History of carotid endarterectomy Anastasiia Colón [employer]UE[employer] Work Phone: History of carotid endarterectom y History of carotid endarterectomy Daylin Delgado DO Work Phone: History of carotid endarterectom y History of carotid endarterectomy Kierra Santiago MD Work Phone: Plan of Treatment Date Care Activity Detail Author Start: 10-16-2033 Urine microalbumin profile DTaP,Tdap,Td Vaccine (2 - Td or Tdap) [facility] Start: 12-06-2025 Glaucoma screening Dilated Retinal Exam [facility] Start: 02-25-2025 ambulatory Facility:[facility] Start: 01-29-2025 End: 01-29-2025 Patient encounter procedure 01/29/2025 10:00 AM EDT Office Visit [facility] [place] [address] [place] [address] Kierra Santiago MD [address] [place], [place] [id number] 6 month f/u [facility] [place] Comment on above: 6 month f/u Start: 01-17-2025 Hemoglobin A1c measurement HbA1C [facility] Start: 01-16-2025 End: 01-16-2025 Anticoagulant drug monitoring 01/16/2025 9:30 AM EDT Antico[facility] Visit [facility] [place] [address] [place] [address] Wstr, Anticoag [facility] [place] [address] [place] [address] inr [facility] [place] Comment on above: inr Start: 12-31-2024 Influenza vaccination Influenza Vaccine (#1) [facility] Start: 12-27-2024 End: 12-27-2024 Anticoagulant drug monitoring 12/27/2024 10:00 AM EDT Anticoagulation Visit [facility] [place] [address] [place] [address] Wstr, [facility]ticoag [facility] [address] [place] [address] inr [facility] [place] Comment on above: inr Start: 12-26-2024 Hepatitis B screening Urine Albumin:Creatinine Ratio [facility] Start: 12-26-2024 Hepatitis B surface antibody level LDL Cholesterol [facility] Start: 12-20-2024 End: 12-20-2024 Anticoagulant drug monitoring 12/20/2024 9:30 AM EDT Anticoagulation Visit [facility] [place] [address] [place] [address] Wstr, Anticoag [facility] [address] [place] [address] inr Coumadin [facility] Comment on above: inr Start: 12-13-2024 Evaluation of diagnostic study results [facility] Start: 12-06-2024 End: 12-06-2024 Anticoagulant drug monitoring 12/06/2024 9:45 AM EDT Anticoagulation Visit [facility] [place] [address] [place] [address] Wstr, Anticoag [facility] [place] [address] [place] [address] inr [facility] [place] Comment on above: inr Start: 11-28-2024 End: 11-28-2024 Anticoagulant drug monitoring 11/28/2024 9:30 AM EDT Anticoagulation Visit [facility] [place] [address] [place] [address] Wstr, [facility] [address] [facility] [place] [address] inr [facility] [place] Comment on above: inr Start: 11-13-2024 Anxiety Screening Anxiety Screening [facility] Start: 11-13-2024 Depression Screening Depression Screening [facility] Start: 10-24-2024 End: 10-24-2024 Patient encounter procedure 10/24/2024 10:00 AM EDT Office Visit [facility] [place] [address] [place] [address] Kierra Santiago MD [address] [facility] [place] [address] [facility] D/C 10/10/2024 Gi Bleed and Chest Pain [facility] [place] Comment on above: [facility] D/C 10/10/2024 Gi Blee d and Chest Pain Start: 10-10-2024 Patient discharge [facility] Start: 10-09-2024 End: 10-09-2024 Anticoagulant drug monitoring 10/09/2024 9:45 AM EDT Anticoagulation Visit [facility] [place] [address] [place] [address] Wstr, [facility] [address] [place] [address] inr [facility] [place] Comment on above: inr Start: 10-09-2024 [facility] Start: 10-08-2024 Application of intermittent pneumatic compression device [facility] Start: 10-08-2024 Prothrombin time [facility] Start: 10-08-2024 Following clinical pathway protocol [facility] Start: 10-08-2024 Transfusion of blood product [facility] Start: 10-08-2024 Assessment of risk of venous thromboembolism [facility] Start: 10-08-2024 Care regimes management [facility] Start: 10-08-2024 Fall prevention [facility] Start: 10-08-2024 Incentive spirometry [facility] Start: 10-08-2024 Inhalation therapy procedure [facility] Start: 10-08-2024 Insertion of catheter into peripheral vein [facility] Start: 10-08-2024 Introduction of urinary catheter [facility] Start: 10-08-2024 Measuring intake and output [facility] Start: 10-08-2024 Notification of physician [facility] Start: 10-08-2024 Oxygen therapy [facility] Start: 10-08-2024 Prothrombin time [facility] Start: 10-08-2024 Providing care according to standard [facility] Start: 10-08-2024 Provision of activity privileges [facility] Start: 10-08-2024 Referral to gastroenterology service [facility] Start: 10-08-2024 Referral to occupational therapist [facility] Start: 10-08-2024 Referral to service [facility] Start: 10-08-2024 End: 10-08-2024 [facility] Start: 10-07-2024 Verification routine [facility] Start: 10-07-2024 Admission procedure [facility] Start: 10-07-2024 Fresh frozen plasma [facility] Start: 10-07-2024 Leukocyte reduced red blood cells [facility] Start: 10-07-2024 [facility] Start: 10-07-2024 End: 10-07-2024 Administration of blood product [facility] Start: 10-07-2024 End: 10-08-2024 [facility] Start: 09-18-2024 Glaucoma screening Dilated Retinal Exam [facility] Start: 09-14-2024 Hepatitis B screening Urine Albumin:Creatinine Ratio [facility] Start: 09-14-2024 Hepatitis B surface antibody level LDL Cholesterol [facility] Start: 09-11-2024 End: 09-11-2024 Anticoagulant drug monitoring 09/11/2024 9:30 AM EDT Antico[facility] Visit [facility] [place] [address] [place] [address] Wstr, Anticoag [facility] [place] [address] [place] [address] inr Coumadin [facility] Comment on above: inr Start: 08-22-2024 Egd transoral biopsy single/multiple EGD BIOPSY SINGLE/MULTIPLE [facility] Start: 08-22-2024 Patient discharge [facility] Start: 08-21-2024 End: 08-21-2024 Anticoagulant drug monitoring 08/21/2024 9:45 AM EDT Anticoagulation Visit Coumadin [facility] [address] [place] [address] Wstr, Anticoag [facility] [place] [address] [place] [address] inr Coumadin [facility] Comment on above: inr Start: 08-17-2024 Hepatitis B surface antibody level LDL Cholesterol [facility] Start: 07-31-2024 End: 07-31-2024 Anticoagulant drug monitoring 07/31/2024 9:45 AM EDT Anticoagulation Visit Coumadin [facility] [address] [place] [address] [facility] [place] [address] [place] [address] inr Coumadin [facility] Comment on above: inr Start: 07-29-2024 Covid-19 Vaccine ( season) Covid-19 Vaccine () [facility] Start: 07-17-2024 End: 10-16-2024 Basic metabolic 2000 panel - Serum or Plasma [facility] Comment on above: Expected: 07/17/2024, Expires: Start: 07-17-2024 End: 10-16-2024 Hemoglobin A1c in Blood [facility] Work Phone: Comment on above: Expected: 07/17/2024, Expires: Start: 07-17-2024 End: 10-16-2024 TSH W/REFLEX FT4 [facility] Comment on above: Expected: 07/17/2024, Expires: Start: 07-17-2024 End: 07-17-2024 Anticoagulant drug monitoring 07/17/2024 11:00 AM EDT Antico[facility] Visit [facility] [place] [address] [place] [address] Wstr, Anticoag [facility] [place] [address] [place] [address] inr - ok to check pt in when she arrives coming from appt with TB - mrg [facility] [place] Comment on above: inr - ok to check pt in when she arrives coming from appt with TB - mrg Start: 07-17-2024 End: 07-17-2024 Patient encounter procedure 07/17/2024 10:00 AM EDT Office Visit [facility] [place] [address] [place] [address] Anastasiia Colón APRN.[employer] [address] [place] [address] follow up [facility] [place] Comment on above: follow up Start: 07-05-2024 End: 07-05-2024 Anticoagulant drug monitoring 07/05/2024 9:45 AM EST Anticoagulation Visit [facility] [place] [address] [place] [address] Wstr, Anticoag [facility] [place] [address] [place] [address] inr [facility] [place] Comment on above: inr Start: 06-28-2024 Hemoglobin A1c measurement HbA1C [facility] Start: 06-28-2024 End: 06-28-2024 Anticoagulant drug monitoring 06/28/2024 9:30 AM EST Anticoagulation Visit [facility] [place] [address] [place] [address] Wstr, Anticoag [facility] [place] [address] [place] [address] inr [facility] [place] Comment on above: inr Start: 06-12-2024 Patient referral [facility] Work Phone: Start: 06-06-2024 Hepatitis B surface antibody level LDL Cholesterol [facility] Start: 06-05-2024 End: 06-05-2024 Patient encounter procedure 06/05/2024 10:00 AM EST Office Visit Vascular Surgery [address] [place], [place] [address] Daylin Delgado, [address] [place] [address] follow up after testing Vascular Surgery Comment on above: follow up after testing Start: 06-04-2024 End: 06-04-2024 Patient encounter procedure Cardiology Comment on above: 6 week follow uop Start: 05-18-2024 End: 05-18-2024 Patient encounter procedure 05/18/2024 9:20 AM EST Appointment Cat Scan [address] [place] [address] Occlusion and stenosis of unspecified carotid artery [...] AM EST Office Visit Cardiology [address] [place] [id number] Terrence Jane MD [address] [facility], [address] [place], [place] [id number] Atrial fibrillation, unspecified type (HCC) [I48.91]; Chest pain, unspecified type [R07.9] Cardiology Comment on above: Atrial fibrillation, unspecified type (H CC) [I48.91]; Chest pain, unspecified type [R07.9] Start: 05-02-2024 Advance Directive Discussion Advance Directive Discussion [facility] Start: 05-02-2024 Medicare Advantage Annual Wellness Visit Medicare Advantage Annual Wellness Visit [facility] Start: 04-30-2024 End: 04-23-2025 Echocardiography ECHO Cardiology Routine Aortic valve disorder Expected: 04/30/2024, Expires: 04/23/2025 [facility] Work Phone: Comment on above: Expected: 04/30/2024, Expires: Start: 04-23-2024 End: 04-23-2024 Patient encounter procedure 04/23/2024 3:00 PM EST Office Visit Cardiology [address] [place] [phone] Terrence Jane MD [address] [facility], [address] [place] [address] Atrial fibrillation, unspecified type (HCC) [I48.91]; Chest pain, unspecified type [R07.9] Cardiology Comment on above: Atrial fibrillation, unspecified type (H CC) [I48.91]; Chest pain, unspecified type [R07.9] Start: 04-17-2024 End: 04-17-2024 Patient encounter procedure 04/17/2024 11:20 AM EST Office Visit [facility] [place] [address] [place] [address] Anastasiia Colón APRN.BLUEPRINT MAKER [address] [place] [address] [facility] follow up Discharged on 04/08/24 [facility] [place] Comment on above: [facility] follow up Discharged on 04/08/24 Start: 04-09-2024 Development of care plan [facility] Start: 04-08-2024 Patient discharge [facility] Start: 04-06-2024 [facility] Start: 04-05-2024 Referral to service [facility] Start: 04-04-2024 Egd transoral biopsy single/multiple EGD BIOPSY SINGLE/MULTIPLE [facility] Start: 04-04-2024 Patient discharge [facility] Start: 04-03-2024 [facility] Start: 04-03-2024 [facility] Start: 04-02-2024 Referral to gastroenterology service [facility] Start: 03-27-2024 Administration of blood product [facility] Start: 03-27-2024 [facility] Start: 03-27-2024 Administration of blood product [facility] Start: 03-27-2024 [facility] Start: 03-21-2024 Patient referral to dietitian [facility] Start: 03-20-2024 Development of care plan [facility] Start: 03-20-2024 Developing a treatment plan [facility] Start: 03-19-2024 Following clinical pathway protocol [facility] Start: 03-19-2024 Contact precautions [facility] Start: 03-19-2024 Consultation for treatment [facility] Start: 03-19-2024 Referral to glass washer [facility] Start: 03-19-2024 Referral to vascular surgeon [facility] Start: 03-19-2024 Wound care [facility] Start: 03-19-2024 Provision of activity privileges [facility] Start: 03-19-2024 Admission procedure [facility] Start: 03-19-2024 Introduction of urinary catheter [facility] Start: 03-19-2024 Measuring intake and output [facility] Start: 03-19-2024 Patient referral to dietitian [facility] Start: 03-19-2024 Referral to occupational therapist [facility] Start: 03-19-2024 Referral to service [facility] Start: 03-19-2024 Vital signs measurements [facility] Start: 03-19-2024 End: 03-19-2024 [facility] Start: 03-12-2024 End: 03-12-2024 Patient encounter procedure [facility] [place] Comment on above: 2 month follow up 2 month follow up, A nxiety and Depression. See TE from 02/29/24. Start: 03-08-2024 End: 03-08-2024 Anticoagulant drug monitoring 03/08/2024 9:00 AM EST Anticoagulation Visit [facility] [place] [address] [place] [address] Wstr, Anticoag [facility] [address] [place] [address] inr [facility] [place] Comment on above: inr Start: 03-01-2024 End: 03-01-2024 Anticoagulant drug monitoring 03/01/2024 10:15 AM EDT Anticoagulation Visit [facility] [place] [address] [place] [address] Wstr, Anticoag [facility] [address] [place] [address] inr - ok to check pt in when she arrives coming from [facility] [place] Comment on above: inr - ok to check pt in when she arrives coming from [facility] Start: 02-27-2024 End: 02-27-2024 Anticoagulant drug monitoring 02/27/2024 9:45 AM EDT Anticoagulation Visit Coumadin [facility] [address] [place] [address] Wstr, Anticoag [facility] [address] [place] [address] INR - [facility] [place] Comment on above: INR - transitioning off Lovenox Start: 02-23-2024 End: 05-24-2024 CBC W Auto Differential panel - Blood [facility] Comment on above: Expected: 02/23/2024, Expires: Start: 02-23-2024 End: 05-24-2024 Comprehensive metabolic 2000 panel - Serum or Plasma [facility] Comment on above: Expected: 02/23/2024, Expires: Start: 02-23-2024 End: 05-24-2024 PT panel - Platelet poor plasma by Coagulation assay PROTHROMBIN TIME Lab Routine Factor 5 Leiden mutation, heterozygous (HCC) Expected: 02/23/2024, Expires: 05/24/2024 [facility] Work Phone: Comment on above: Expected: 02/23/2024, Expires: Start: 02-06-2024 End: 02-06-2024 Patient encounter procedure 02/06/2024 9:20 AM EDT Office Visit [facility] [place] [address] [place] [address] Anastasiia Colón APRN.[employer]UE[employer] MAKER [address] [place] [address] 4 month follow up [facility] [place] Comment on above: 4 month follow up Start: 01-19-2024 End: 01-19-2024 Anticoagulant drug monitoring 01/19/2024 11:30 AM EDT Anticoagulation Visit Coumadin [facility] [address] [place] [address] Wstr, Anticoag [facility] [address] [place] [address] inr Coumadin [facility] Comment on above: inr Start: 01-11-2024 End: 01-11-2024 Patient encounter procedure 01/11/2024 4:00 PM EDT Office Visit [facility] [place] [address] [place] [address] Kierra Santiago MD [address] [place] [address] 3 month f/u [facility] [place] Comment on above: 3 month f/u Start: 01-05-2024 End: 01-05-2024 Anticoagulant drug monitoring 01/05/2024 9:15 AM EDT Anticoagulation Visit Coumadin [facility] [address] [place] [address] Wstr, Anticoag [facility] [place] [address] [place] [address] inr Coumadin [facility] Comment on above: inr Start: 01-01-2024 Covid-19 Vaccine ( season) Covid-19 Vaccine ( season) [facility] Start: 01-01-2024 Influenza vaccination [facility] Start: 12-27-2023 End: 03-27-2024 Microalbumin/Creatinine [Mass Ratio] in Urine [facility] Work Phone: Comment on above: Expected: 12/27/2023, Expires: Start: 12-16-2023 Hemoglobin A1c measurement HbA1C [facility] Start: 12-12-2023 Shingrix Vaccine (2 of 2) Shingrix Vaccine (2 of 2) [facility] Start: 12-11-2023 End: 12-25-2023 COVID & INFLUENZA A/B & RSV NAAT, ROUTINE COVID & INFLUENZA A/B & RSV NAAT, ROUTINE Microbiology Routine Acute cough URI, acute Expected: 12/11/2023, Expires: 12/25/2023 [facility] Work Phone: Comment on above: Expected: 12/11/2023, Expires: Start: 12-08-2023 End: 12-08-2023 Anticoagulant drug monitoring 12/08/2023 9:15 AM EDT Anticoagulation Visit Coumadin [facility] [address] [place] [address] Wstr, Anticoag [facility] [place] [address] [place] [address] inr Coumadin [facility] Comment on above: inr Start: 12-05-2023 Hemoglobin A1c measurement HbA1C [facility] Start: 11-30-2023 Hepatitis B surface antibody level LDL CHOLESTEROL [facility] Start: 11-30-2023 End: 11-30-2023 Patient encounter procedure 11/30/2023 7:45 AM EDT Appointment Radiology [address] [place] [address] elevated alanine aminotransferase (ALT) Radiology Comment on above: elevated alanine aminotransferase (ALT) Start: 11-18-2023 End: 02-17-2024 Chronic hepatitis differentiation between hepatitis B and C virus panel - Serum or Plasma HEP REMOTE PANEL BL Lab Routine Elevated alanine aminotransferase (ALT) level Expected: 11/18/2023, Expires: 02/17/2024 [facility] Comment on above: Expected: 11/18/2023, Expires: Start: 11-18-2023 End: 02-17-2024 Hepatic function 1999 panel - Serum or Plasma HEPATIC FUNCTION PNL Lab Routine Elevated alanine aminotransferase (ALT) level Expected: 11/18/2023, Expires: 02/17/2024 [facility] Comment on above: Expected: 11/18/2023, Expires: Start: 11-18-2023 End: 11-18-2023 Patient encounter procedure 11/18/2023 11:20 AM EDT Office Visit Gastroenterology [facility] [address] [place] [id number] Tara Benavides APRN.POPULATION HEALTH COACH [address] [place] [address] Transaminitis [R74.01] [facility]astro[facility] Comment on above: Transaminitis [R74.01] Start: 11-17-2023 Hemoglobin A1c measurement HbA1C [facility] Start: 11-14-2023 End: 11-14-2023 Patient encounter procedure 11/14/2023 1:50 PM EDT Office Visit Cardiology [address] [place] [address] Wstr, Nurse Card Admin [facility] [address] [place] [address] Chest pain, unspecified type [R07.9] Cardiology Comment on above: Chest pain, unspecified type [R07.9] Start: 11-14-2023 End: 11-14-2023 Patient encounter procedure 11/14/2023 9:40 AM EDT Office Visit [facility] [place] [address] [place] [address] Anastasiia Colón APRN.BLUEPRINT MAKER [address] [facility] [place] [address] follow up [facility] [place] Comment on above: follow up Start: 11-13-2023 End: 02-12-2024 Basic metabolic 2000 panel - Serum or Plasma BASIC METABOLIC PANEL Lab Routine Type 2 diabetes mellitus with diabetic polyneuropathy, without long-term current use of insulin (HCC) Expected: 11/13/2023 (Approximate), Expires: 02/12/2024 [facility] Work Phone: Comment on above: Expected: 11/13/2023 (Approximate), Expi res: 02/12/2024 Start: 11-10-2023 End: 11-10-2023 Anticoagulant drug monitoring 11/10/2023 9:15 AM EDT Anticoagulation Visit [facility] [place] [address] [place] [address] Wstr, [facility] [place] [address] [place] [address] inr [facility] [place] Comment on above: inr Start: 10-24-2023 End: 10-24-2023 Patient encounter procedure 10/24/2023 3:40 PM EDT Appointment [facility] [address] [place], [place] [address] Lung nodules [R91.8] [facility] Comment on above: Lung nodules [R91.8] Start: 10-18-2023 End: 01-17-2024 Basic metabolic 2000 panel - Serum or Plasma BASIC METABOLIC PANEL Lab Routine Uncontrolled type 2 diabetes mellitus with hyperglycemia (HCC) Hyponatremia Expected: 10/18/2023 (Approximate), Expires: 01/17/2024 [facility] Work Phone: Comment on above: Expected: 10/18/2023 (Approximate), Expi res: 01/17/2024 Start: 10-13-2023 End: 10-13-2023 Anticoagulant drug monitoring 10/13/2023 9:00 AM EDT Anticoagulation Visit [facility] [place] [address] [place] [address] Wstr, [facility] [place] [address] [facility], [place] [address] inr [facility] [place] Comment on above: inr Start: 10-12-2023 End: 10-12-2023 Nursing evaluation of patient and report 10/12/2023 2:00 PM EDT Nurse Visit Endocrinology [address] [place] [address] Suresh Varela, XOCHILT [address] [address] Uncontrolled type 2 diabetes mellitus with hyperglycemia (HCC) [E11.65] Endocrinology Comment on above: Uncontrolled type 2 diabetes mellitus wi th hyperglycemia (HCC) [E11.65] Start: 10-10-2023 End: 01-09-2024 Comprehensive metabolic 2000 panel - Serum or Plasma [facility] Comment on above: Expected: 10/10/2023, Expires: Start: 10-10-2023 End: 10-10-2023 Patient encounter procedure 10/10/2023 11:40 AM EDT Office Visit [facility] [place] [address] [place] [address] Anastasiia Colón APRN.[employer]UE[employer] MAKER [address] [place] [address] 4 month follow up [facility] [place] Comment on above: 4 month follow up Start: 10-07-2023 End: 10-07-2023 Patient encounter procedure 10/07/2023 10:40 AM EDT Office Visit [facility] [place] [address] [place] [address] Kierra Santiago MD [address] [place] [address] 4 month follow up [facility] [place] Comment on above: 4 month follow up Start: 10-04-2023 End: 10-04-2023 Patient encounter procedure 10/04/2023 9:30 AM EDT Office Visit Vascular Surgery [address] [place] [address] Daylin Delgado, DO [address] [place] [address] 6 MONTH FOLLOW UP WITH CAROTID TESTING [...] insulin (HCC) Expected: 09/30/2023 (Approximate), Expires: 06/01/2024 [facility] Work Phone: Comment on above: Expected: [...] insulin (HCC) Expected: 09/30/2023 (Approximate), Expires: 06/01/2024 [facility] Work Phone: Comment on above: Expected: [...] insulin (HCC) Expected: 09/30/2023 (Approximate), Expires: 06/01/2024 [facility] Work Phone: Comment on above: Expected: 09/30/2023 (Approximate), Expi res: 06/01/2024 Start: 09-30-2023 End: 06-01-2024 Hemoglobin A1c in Blood HGB A1C Lab Routine Peripheral vascular disease, unspecified (HCC) Type 2 diabetes mellitus with hyperglycemia, without long-term current use of insulin (HCC) Type 2 diabetes mellitus with diabetic polyneuropathy, without long-term current use of insulin (HCC) Expected: 09/30/2023 (Approximate), Expires: 06/01/2024 [facility] Work Phone: Comment on above: Expected: [...] Mixed hyperlipidemia Expected: 09/30/2023 (Approximate), Expires: 06/01/2024 [facility] Work Phone: Comment on above: Expected: 09/30/2023 (Approximate), Expi res: 06/01/2024 Start: 09-30-2023 End: 06-01-2024 Thyrotropin [Units/volume] in Serum or Plasma TSH BLD Lab Routine Type 2 diabetes mellitus with hyperglycemia, without long-term current use of insulin (HCC) Type 2 diabetes mellitus with diabetic polyneuropathy, without long-term current use of insulin (HCC) Subclinical hypothyroidism Expected: 09/30/2023 (Approximate), Expires: 06/01/2024 [facility] Work Phone: Comment on above: Expected: 09/30/2023 (Approximate), Expi res: 06/01/2024 Start: 09-29-2023 End: 09-29-2023 Patient encounter procedure 09/29/2023 11:00 AM EDT Office Visit Vasculary Surgery [address] [place] [address] 6 MONTH FOLLOW UP WITH CAROTID TESTING Vas[facility] Comment on above: 6 MONTH FOLLOW UP WITH CAROTID TESTING Start: 09-09-2023 Glaucoma screening Dilated Retinal Exam [facility] Start: 09-09-2023 Hepatitis C antibody, confirmatory test DILATED RETINAL EXAM [facility] Start: 08-26-2023 Hepatitis B surface antibody level LDL CHOLESTEROL [facility] Start: 08-10-2023 3 comp foot exam completed DIABETIC FOOT EXAM [facility] Start: 08-10-2023 Diabetic foot examination Diabetic Foot Exam [facility] Start: 08-03-2023 COVID-19 VACCINE (#1) COVID-19 VACCINE (#1) [facility] Comment on above: Postponed from 04/15/1941 (Declined at t his time) Start: 08-03-2023 Hepatitis B screening URINE ALBUMIN:CREATININE RATIO [facility] Start: 08-03-2023 Pneumococcal Vaccine: 65+ (1 - PCV) Pneumococcal Vaccine: 65+ (1 - PCV) [facility] Comment on above: Postponed from 10/14/1946 (Declined at t his time) Start: 08-03-2023 Pneumococcal Vaccine: 65+ (1 of 2 - PCV) Pneumococcal Vaccine: 65+ (1 of 2 - PCV) [facility] Comment on above: Postponed from [birth year]/1945 (Declined at t his time) Start: 08-03-2023 PNEUMOCOCCAL: 65+ (1 - PCV) PNEUMOCOCCAL: 65+ (1 - PCV) [facility] Comment on above: Postponed from [birth year]/14/1945 (Declined at t his time) Start: 08-03-2023 SHINGRIX VACCINE (1 of 2) SHINGRIX VACCINE (1 of 2) [facility] Comment on above: Postponed from 10/14/1989 (Declined at t his time) Start: 08-03-2023 Urine microalbumin profile [facility] Comment on above: Postponed from 10/14/1958 (Declined at t his time) Start: 07-02-2023 Hepatitis B surface antibody level LDL CHOLESTEROL [facility] Start: 06-07-2023 Covid-19 Vaccine ( season) Covid-19 Vaccine ( season) [facility] Start: 06-01-2023 Hemoglobin A1c measurement HbA1C [facility] Start: 06-01-2023 Hemoglobin A1c/Hemoglobin.total in Blood HBA1C [facility] Start: 05-02-2023 Advance Directive Discussion Advance Directive Discussion [facility] Start: 05-02-2023 Behavioral Health Screening Behavioral Health Screening [facility] Start: 05-02-2023 Depression Assessment Depression Assessment [facility] Start: 01-01-2023 Hemoglobin A1c/Hemoglobin.total in Blood HBA1C [facility] Start: 12-31-2022 Influenza vaccination [facility] Start: 11-19-2022 End: 08-29-2023 Hemoglobin A1c in Blood HGB A1C Lab Routine Type 2 diabetes mellitus with hyperglycemia, without long-term current use of insulin (HCC) Expected: 11/19/2022 (Approximate), Expires: 08/29/2023 [facility] Work Phone: Comment on above: Expected: 11/19/2022 (Approximate), Expi res: 08/29/2023 Start: 11-19-2022 End: 08-29-2023 Lipid 1996 panel - Serum or Plasma LIPID PANEL BASIC Lab Routine High triglycerides Expected: 11/19/2022 (Approximate), Expires: 08/29/2023 [facility] Work Phone: Comment on above: Expected: 11/19/2022 (Approximate), Expi res: 08/29/2023 Start: 08-29-2022 3 comp foot exam completed DIABETIC FOOT EXAM [facility] Comment on above: Postponed from 10[birth year]14/1950 (Postponed To Appropriate Date) Start: 08-10-2022 End: 10-10-2022 Lipid 1996 panel - Serum or Plasma LIPID PANEL BASIC Lab Routine Stenosis of carotid artery, unspecified laterality History of carotid endarterectomy History of transient ischemic attack (TIA) Stenosis of left carotid artery Expected: 08/10/2022, Expires: 10/10/2022 [facility] Work Phone: Comment on above: Expected: 08/10/2022, Expires: 3 Start: 08-02-2022 End: 10-02-2022 ALBUMIN/CREAT RATIO RND UR [facility] Work Phone: Comment on above: Expected: 08/02/2022, Expires: 3 Start: 05-02-2022 ADVANCE DIRECTIVE DISCUSSION ADVANCE DIRECTIVE DISCUSSION [facility] Start: 05-02-2022 DEPRESSION ASSESSMENT DEPRESSION ASSESSMENT [facility] Start: 12-31-2021 Influenza vaccination INFLUENZA (#1) [facility] Start: 10-14-2014 RSV Vaccine (1 - 1-dose 75+ series) RSV Vaccine (1 - 1-dose 75+ series) [facility] Start: 10-14-2004 BONE DENSITY BONE DENSITY [facility] Start: 1999 Hepatitis B Vaccine (1 of 3 - Risk 3-dose series) Hepatitis B Vaccine (1 of 3 - Risk 3-dose series) [facility] Start: 1999 RSV Vaccine (1 - 1-dose 60+ series) RSV Vaccine (1 - 1-dose 60+ series) [facility] Start: 10-14-1989 SHINGRIX VACCINE (1 of 2) SHINGRIX VACCINE (1 of 2) [facility] Start: 10-14-1958 Urine microalbumin profile [facility] Start: 10-14-1949 3 comp foot exam completed DIABETIC FOOT EXAM [facility] Start: 10-14-1949 Hepatitis B screening URINE ALBUMIN:CREATININE RATIO [facility] Start: 10-14-1949 Hepatitis C antibody, confirmatory test DILATED RETINAL EXAM [facility] Start: 10-14-1945 Pneumococcal Vaccine: 65+ (1 of 2 - PCV) Pneumococcal Vaccine: 65+ (1 of 2 - PCV) [facility] Start: 10-14-1945 PNEUMOCOCCAL: 65+ (1 - PCV) PNEUMOCOCCAL: 65+ (1 - PCV) [facility] Start: 04-15-1940 COVID-19 VACCINE (#1) COVID-19 VACCINE (#1) [facility] Alanine aminotransfe rase [Enzymatic activity/volume] in Serum or Plasma [facility] Albumin [Mass/volume ] in Serum or Plasma [facility] Alkaline phosphatase [Enzymatic activity/volume] in Serum or Plasma [facility] Anion gap in Serum o r Plasma [facility] Bilirubin, total measurement [facility] BUN/Creatinine ratio [facility] Calcium [Mass/volume ] in Serum or Plasma [facility] Carbon dioxide, tota l [Moles/volume] in Central venous blood [facility] End: 02-04-2024 CBC panel - Blood by Automated count CBC Lab Routine Type 2 diabetes mellitus with diabetic polyneuropathy, without long-term current use of insulin (HCC) Primary hypertension Encounter for long-term current use of medication Every 3 months for 4 Occurrences starting 02/04/2023 until 02/04/2024 [facility] Work Phone: Comment on above: Every 3 months for 4 Occurrences startin g 02/04/2023 until 02/04/2024 Cholesterol [Mass/volume] in Serum or Plasma [facility] Cholesterol in HDL [Mass/volume] in Serum or Plasma [facility] End: 02-04-2024 Comprehensive metabolic 2000 panel - Serum or Plasma COMP METABOLIC PANEL Lab Routine Type 2 diabetes mellitus with diabetic polyneuropathy, without long-term current use of insulin (HCC) Primary hypertension Encounter for long-term current use of medication Every 3 months for 4 Occurrences starting 02/04/2023 until 02/04/2024 [facility] Work Phone: Comment on above: Every 3 months for 4 Occurrences startin g 02/04/2023 until 02/04/2024 Creatinine [Mass/vol ume] in Serum or Plasma [facility] CT Chest WO contrast CT CHEST WO IVCON Radiology Routine Lung nodules 10/24/2023 3:51 PM EDT [facility] Work Phone: End: 11-08-2024 CT Chest WO contrast CT CHEST WO IVCON Radiology Routine Lung nodules 1 Occurrences starting 10/10/2023 until 11/08/2024 [facility] Work Phone: Comment on above: 1 Occurrences starting 10/10/2023 until 11/08/2024 End: 06-07-2025 CT Neck W contrast IV CTA NECK W IVCON Radiology Routine Occlusion and stenosis of unspecified carotid artery 1 Occurrences starting 05/08/2024 until 06/07/2025 [facility] Comment on above: 1 Occurrences starting 05/08/2024 until 06/07/2025 End: 06-07-2025 CTA Head Arteries W contrast IV CTA HEAD W IVCON Radiology Routine Occlusion and stenosis of unspecified carotid artery 1 Occurrences starting 05/08/2024 until 06/07/2025 [facility] Work Phone: Comment on above: 1 Occurrences starting 05/08/2024 until 06/07/2025 CTA Head vessels and Neck vessels W contrast IV [facility] End: 09-01-2023 DXA-AXIAL [place]KELETON DXA-AXIAL [facility]LETON Radiology Routine Screening for osteoporosis Asymptomatic menopause 1 Occurrences starting 08/02/2022 until 09/01/2023 [facility] Work Phone: Comment on above: 1 Occurrences starting 08/02/2022 until 09/01/2023 Erythrocyte mean corpuscular volume determination [facility] Glucose [Mass/volume ] in Serum or Plasma [facility] Hematocrit [Volume Fraction] of Blood [facility] Hematocrit [Volume Fraction] of Blood [facility] Hemoglobin [Mass/vol ume] in Blood [facility] Hemoglobin [Mass/vol ume] in Blood [facility] End: 02-04-2024 Hemoglobin A1c in Blood HGB A1C Lab Routine Type 2 diabetes mellitus with diabetic polyneuropathy, without long-term current use of insulin (HCC) Encounter for long-term current use of medication Every 3 months for 4 Occurrences starting 02/04/2023 until 02/04/2024 [facility] Work Phone: Comment on above: Every 3 months for 4 Occurrences startin g 02/04/2023 until 02/04/2024 INR in Blood by Coagulation assay [facility] INR in Blood by Coagulation assay [facility] End: 07-01-2023 INR in Platelet poor plasma by Coagulation assay INR (POC) Lab Routine Factor V deficiency (HCC) Every other week for 99 Occurrences starting 07/01/2022 until 07/01/2023 [facility] Work Phone: Comment on above: Every other week for 99 Occurrences star ting 07/01/2022 until 07/01/2023 End: 07-20-2024 INR in Platelet poor plasma by Coagulation assay INR (POC) Lab Routine Factor V deficiency (HCC) Once per month for 99 Occurrences starting 07/21/2023 until 07/20/2024 [facility] Work Phone: Comment on above: Once per month for 99 Occurrences starti ng 07/21/2023 until 07/20/2024 End: 07-31-2025 INR in Platelet poor plasma by Coagulation assay INR (POC) Lab Routine Factor V deficiency (HCC) Once per month for 99 Occurrences starting 07/31/2024 until 07/31/2025 [facility] Work Phone: Comment on above: Once per month for 99 Occurrences starti ng 07/31/2024 until 07/31/2025 Leukocytes [#/volume ] in Blood [facility] End: 02-04-2024 Lipid 1996 panel - Serum or Plasma LIPID PANEL BASIC Lab Routine Encounter for long-term current use of medication Mixed hyperlipidemia Every 3 months for 4 Occurrences starting 02/04/2023 until 02/04/2024 [facility] Work Phone: Comment on above: Every 3 months for 4 Occurrences startin g 02/04/2023 until 02/04/2024 Low density lipoprot ein cholesterol measurement [facility] Mean corpuscular hemoglobin concentration determination [facility] Mean corpuscular hemoglobin determination [facility] Measurement of renal function [facility] Neutrophil count [facility] Neutrophil percent differential count [facility] Patient referral [facility] Work Phone: PFIZER-BIONTECH COVI D-19 VACCINE () AGE 12+ YR PFIZER-BIONTECH COVID-19 VACCINE () AGE 12+ YR Immunization/Injection Routine Encounter for immunization 1 Occurrences starting 11/14/2023 [facility] Comment on above: 1 Occurrences starting 11/14/2023 Platelets [#/volume] in Blood [facility] Pneumococcal vaccination PNEUMOC OCCAL VACCINE, 20 VALENT (PREVNAR 20) Immunization/Injection Routine Encounter for immunization 1 Occurrences starting 11/14/2023 [facility] Work Phone: Comment on above: 1 Occurrences starting 11/14/2023 Potassium measurement [facility] End: 07-01-2023 PT panel - Platelet poor plasma by Coagulation assay PROTHROMBIN TIME/PT Lab Routine Factor V deficiency (HCC) Every other week for 99 Occurrences starting 07/01/2022 until 07/01/2023 [facility] Work Phone: Comment on above: Every other week for 99 Occurrences star ting 07/01/2022 until 07/01/2023 End: 07-20-2024 PT panel - Platelet poor plasma by Coagulation assay PROTHROMBIN TIME/PT Lab STAT Factor V deficiency (HCC) Once per month for 99 Occurrences starting 07/21/2023 until 07/20/2024 [facility] Work Phone: Comment on above: Once per month for 99 Occurrences starti ng 07/21/2023 until 07/20/2024 End: 07-31-2025 PT panel - Platelet poor plasma by Coagulation assay PROTHROMBIN TIME Lab STAT Factor V deficiency (HCC) Once per month for 99 Occurrences starting 07/31/2024 until 07/31/2025 [facility] Comment on above: Once per month for 99 Occurrences starti ng 07/31/2024 until 07/31/2025 Red blood cell count [facility] Red cell distributio n width determination [facility] Serum chloride measurement [facility] Sodium measurement [facility] End: 10-09-2024 STRESS ECHO TREADMILL STRESS ECHO TREADMILL Cardiology Routine Chest pain, unspecified type 1 Occurrences starting 10/10/2023 until 10/09/2024 [facility] Comment on above: 1 Occurrences starting 10/10/2023 until 10/09/2024 Total cholesterol:HD L ratio measurement [facility] Total protein measurement [facility] Triglycerides measurement [facility] Troponin T.cardiac [Mass/volume] in Serum or Plasma by High sensitivity method [facility] Urea nitrogen [Mass/volume] in Serum or Plasma [facility] End: 12-17-2024 US Abdomen RUQ US ABD RIGHT UPPER QUADRANT Radiology Routine Elevated alanine aminotransferase (ALT) level 1 Occurrences starting 11/18/2023 until 12/17/2024 [facility] Work Phone: Comment on above: 1 Occurrences starting 11/18/2023 until 12/17/2024 End: 10-03-2024 US Carotid arteries - bilateral US CAROTID ARTERIES [facility] Vascular Lab Routine Bilateral carotid artery stenosis 1 Occurrences starting 10/04/2023 until 10/03/2024 [facility] Work Phone: Comment on above: 1 Occurrences starting 10/04/2023 until 10/03/2024 End: 07-02-2023 US CAROTID ARTERIES [facility] US CAROTID ARTERIES [facility] Vascular Lab Routine Stenosis of carotid artery, unspecified laterality History of carotid endarterectomy 1 Occurrences starting 07/01/2022 until 07/02/2023 [facility] Work Phone: Comment on above: 1 Occurrences starting 07/01/2022 until 07/02/2023 End: 12-02-2023 US CAROTID ARTERIES [facility] US CAROTID ARTERIES [facility] Vascular Lab Routine Carotid stenosis, asymptomatic, bilateral 1 Occurrences starting 12/01/2022 until 12/02/2023 [facility] Work Phone: Comment on above: 1 Occurrences starting 12/01/2022 until 12/02/2023 End: 03-15-2024 US CAROTID ARTERIES [facility] US CAROTID ARTERIES [facility] Vascular Lab Routine Bilateral carotid artery stenosis 1 Occurrences starting 03/15/2023 until 03/15/2024 [facility] Work Phone: Comment on above: 1 Occurrences starting 03/15/2023 until 03/15/2024 VLDL cholesterol measurement [facility] End: 01-09-2025 XR Chest PA and Lateral XR CHEST 2V FRONTAL/LAT Radiology STAT Acute cough 1 Occurrences starting 12/11/2023 until 01/09/2025 [facility] Comment on above: 1 Occurrences starting 12/11/2023 until 01/09/2025 [facility] Immunizations Immunization Date Immunization Notes Care Provider Lamar moreira 05-08-2024 respiratory syncytia l virus (RSV) vaccine, bivalent (ABRYSVO) Daylin Delgado DO Work Phone: [facility] 03-22-2024 pneumococcal conjuga te (PCV20) vaccine, 20 valent (PREVNAR 20) Daylin Delgado DO Work Phone: [facility] 01-30-2024 Covid (Spikevax) Dr. Kierra lester MD Work Phone: [facility] 12-26-2023 influenza, high dose seasonal, preservative-free Kierra Santiago MD Work Phone: [facility] 12-26-2023 zoster vaccine recombinant Kierra Santiago MD Work Phone: [facility] 12-26-2023 influenza virus vaccine, unspecified formulation Kierra Santiago MD Work Phone: [facility] 10-17-2023 tetanus toxoid, redu sharan diphtheria toxoid, and acellular pertussis vaccine, adsorbed Anastasiia Colón [employer] Work Phone: [facility] 10-17-2023 zoster vaccine recombinant Anastasiia Colón [employer] Work Phone: [facility] 02-04-2023 COVID-19 vaccine, ag e 12+ yr, season (PFIZER-BIONTECH) Kierra Santiago MD Work Phone: [facility] Work Phone: 02-04-2023 influenza (HD-IIV4) vaccine, age 65+ yr, high dose, quadrivalent, PF (FLUZONE HIGH-DOSE) Kierra Santiago MD Work Phone: [facility] Work Phone: 02-04-2023 influenza virus vaccine, unspecified formulation Kierra Santiago MD Work Phone: [facility] 02-23-2022 COVID-19 vaccine, ag e 12+ yr, bivalent (PFIZER-BIONTECH) Kierra Santiago MD Work Phone: [facility] Work Phone: 03-11-2021 COVID-19 original vaccine, booster dose, monovalent (MODERNA) Kierra Santiago MD Work Phone: [facility] Work Phone: 07-14-2020 COVID-19 original vaccine, full dose, monovalent (MODERNA) Kierra Santiago MD Work Phone: [facility] Work Phone: 06-16-2020 COVID-19 original vaccine, full dose, monovalent (MODERNA) Kierra Santiago MD Work Phone: [facility] Work Phone: Payers Date Payer Category Payer Self-pay [id number] 2024 Unknown [facility] ANTH MEDICARE ADVANTAGE HMO [id number] 2024-[facility] [phone] [address] [place] [address] HMO [id number] 2024 Medicare [id number] 2024 Self-pay 2022 Medicare (Managed Care) 1.2. [id number] 2022 Private Health Insurance [id number] 2004 Medicare [id number]. [id number] Unknown [id number] 2.16.840.1.730040.3.579.2. 462 Unknown [id number] 2.16.840.1.731009.3.579.2. 462 Unknown [id number] 2.16.840.1.459977.3.579.2. 462 Unknown [id number] 2.16.840.1.670984.3.579.2. 462 Unknown [id number] 2.16.840.1.056924.3.579.2. 462 Unknown [id number] 2.16.840.1.002449.3.579.2. 462 Unknown [id number] 2.16.840.1.970453.3.579.2. 462 Unknown [id number] 2.16.840.1.326923.3.579.2. 462 Unknown [id number] 2.16.840.1.213844.3.579.2. 462 Unknown [id number] 2.16.840.1.827628.3.579.2. 462 Unknown [id number] 2.16.840.1.232431.3.579.2. 462 Unknown [id number] 2.16.840.1.653765.3.579.2. 462 Unknown [id number] 2.16.840.1.412482.3.579.2. 462 Unknown [id number] 2.16.840.1.249796.3.579.2. 462 Unknown [id number] 2.16.840.1.646513.3.579.2. 462 Unknown [id number] 2.16.840.1.773867.3.579.2. 462 Unknown [id number] 2.16.840.1.720289.3.579.2. 462 Unknown [id number] 2.840.1.028239.3.579.2. 462 Unknown [id number] 2.16840.1.155146.3.579.2. 462 Unknown [id number] 2.840.1.714365.3.579.2. 462 Unknown [id number] 2.16840.1.322622.3.579.2. 462 Unknown [id number] 2.16.840.1.777717.3.579.2. 462 Unknown [id number] 2.16840.1.231645.3.579.2. 462 Unknown [id number] 2.16.840.1.388703.3.579.2. 462 Unknown [id number] 2.16.840.1.676450.3.579.2. 462 Unknown [id number] 2.16.840.1.541780.3.579.2. 462 Unknown [id number] 2.16.840.1.382976.3.579.2. 462 Unknown [id number] 2.16840.1.014165.3.579.2. 462 Unknown [id number] 2.840.1.533263.3.579.2. 462 Unknown [id number] 2.840.1.656894.3.579.2. 462 Unknown [id number] 2.16.840.1.046687.3.579.2. 462 Unknown [id number] 2.840.1.020680.3.579.2. 462 Unknown [id number] 2.840.1.389863.3.579.2. 462 Unknown [id number] 2.840.1.536278.3.579.2. 462 Unknown [id number] 2.840.1.436220.3.579.2. 462 Unknown [id number] 2.840.1.428790.3.579.2. 462 Unknown [id number] 2.840.1.102437.3.579.2. 462 Unknown [id number] 2.840.1.808290.3.579.2. 462 Unknown [id number] 2.840.1.145112.3.579.2. 462 Unknown [id number] 2.840.1.717574.3.579.2. 462 Unknown [id number] 2.840.1.732030.3.579.2. 462 Unknown [id number] .840.1.342495.3.579.2. 462 Unknown [id number] .840.1.120072.3.579.2. 462 Unknown [id number] 2.840.1.395558.3.579.2. 462 Unknown [id number] 2.840.1.364583.3.579.2. 462 Unknown [id number] 2.840.1.400705.3.579.2. 462 Unknown [id number] 2.16.840.1.799999.3.579.2. 462 Unknown [id number] 2.16.840.1.708820.3.579.2. 462 Unknown [id number] 2.16.840.1.719746.3.579.2. 462 Unknown [id number] 2.16.840.1.020245.3.579.2. 462 Unknown [id number] 2.16.840.1.739978.3.579.2. 462 Unknown [id number] 2.16840.1.716415.3.579.2. 462 Unknown [id number] 2.840.1.477201.3.579.2. 462 Unknown [id number] 2.16840.1.514989.3.579.2. 462 Unknown [id number] 2.840.1.396151.3.579.2. 462 Unknown [id number] 2.840.1.167658.3.579.2. 462 Unknown [id number] 2.840.1.515172.3.579.2. 462 Unknown [id number] 2.840.1.626647.3.579.2. 462 Unknown [id number] 2.840.1.110867.3.579.2. 462 Unknown [id number] 2.840.1.008490.3.579.2. 462 Unknown [id number] 2.16840.1.305594.3.579.2. 462 Unknown [id number] 2.16.840.1.574178.3.579.2. 462 Unknown [id number] 2.16840.1.698542.3.579.2. 462 Unknown [id number] 2.16840.1.853803.3.579.2. 462 Unknown [id number] 2.16840.1.445852.3.579.2. 462 Unknown [id number] 2.16.840.1.737390.3.579.2. 462 Unknown [id number] 2.16840.1.657850.3.579.2. 462 Unknown [id number] 2.16840.1.479904.3.579.2. 462 Unknown [id number] 2.840.1.529555.3.579.2. 462 Unknown [id number] 2.16840.1.056991.3.579.2. 462 Social History Date Type Detail Facility Start: 04-14-2015 End: 10-08-2024 Tobacco smoking status AZIS Never smoked tobacco [facility] Work Phone: Start: 07-02-2022 End: 08-02-2022 Alcohol intake Not Asked [facility] Start: 1940 Sex Assigned At Not on file [facility] Start: 08-01-2022 History SDOH Alcohol Frequency 3 [facility] Start: 08-01-2022 History SDOH Alcohol Std Drinks 0 [facility] Start: 08-01-2022 History SDOH Alcohol Binge 1 [facility] Start: 08-01-2022 History SDOH Social Connections Phone 5 [facility] Start: 08-01-2022 History SDOH Physica l Activity DPW 2 [facility] Start: 08-09-2022 End: 10-24-2024 Alcohol intake Current drinker of alcohol (finding) [facility] Start: 08-09-2022 Alcohol Comment occ [facility] Start: 07-31-2022 End: 09-08-2022 History of Social function [facility] Start: 07-31-2022 End: 09-08-2022 Social connection and isolation panel [facility] Do you belong to any clubs or organizations such as quaker groups, unions, fraternal or athletic groups, or school groups? Yes [facility] Are you now , , , , never or living with a partner? [facility] How often to you hav e a drink containing alcohol? 2-4 times a month [facility] Start: 04-14-2015 How many standard drinks containing alcohol do you have on a typical day? Patient does not drink [facility] How often do you hav e 6 or more drinks on 1 occasion? Never [facility] Do you feel stress - tense, restless, nervous, or anxious, or unable to sleep at night because your mind is troubled all the time - these days [OSQ] Only a little [facility] (I/We) worried wheth er (my/our) food would run out before (I/we) got money to buy more. Never true [facility] In the past 12 month s, was there a time when you were not able to pay the mortgage or rent on time? No [facility] Start: 1940 Sex Assigned At Female C [facility] Start: 08-13-2023 Gender identity Identifies as female gender (finding) [facility] Start: 08-13-2023 Sexual orientation Heterosexual (fin ding) [facility] Start: 07-18-2024 End: 08-21-2024 Sex Female (finding) [facility] NEGATED: Highlighted row Not [facility] Medical Equipment Procedure Code Equipment Code Equipment Origin al Text Equipment Identifier Dates EGD, with monitored anesthesia care Ligation clip, metallic [id number] FDA Start: 04-04-2024 Creation, bypass, arterial, femoral [...] popliteal, using graft Collagen haemostatic agent, non-antimicrobial [id number] FDA Start: 03-12-2024 Creation, bypass, arterial, femoral to popliteal, using graft Ligation clip, metallic [id number] FDA Start: 03-12-2024 Creation, bypass, arterial, femoral to popliteal, using graft Ligation clip, metallic ()[id number] FDA Start: 03-12-2024 Creation, bypass, arterial, femoral to popliteal, using graft Ligation clip, metallic ()[id number] FDA Start: 03-12-2024 Creation, bypass, arterial, femoral to popliteal, using graft Ligation clip, metallic ()[id number] FDA Start: 03-12-2024 Creation, bypass, arterial, femoral to popliteal, using graft Ligation clip, metallic ()[id number] FDA Start: 03-12-2024 Creation, bypass, arterial, femoral to popliteal, using graft Ligation clip, metallic ()[id number] FDA Start: 03-12-2024 Creation, bypass, arterial, [...] goal Functional Status Date Assessment Result Facility 10-10-[address] [facility] Work Phone: 10-10-2024 Functional status Chair [facility] Work Phone: 10-08-2024 Functional status Ambulates [facility] Work Phone: 04-08-2024 Functional status Up ad kaylee;Chair [facility] Work Phone: 04-07-2024 Functional status Tolerates Activity Fair [facility] Work Phone: Mental Status Date Assessment Result Facility 10-10-2024 Cognitive function Voice/Name [facility] Work Phone: 10-08-2024 Cognitive function Voice/Name [facility] Work Phone: 08-22-2024 Cognitive function Voice/Name [facility] Work Phone: 04-08-2024 Cognitive function Voice/Name [facility] Work Phone: 04-04-2024 [facility] Work Phone: 04-04-2024 Cognitive function Voice/Name [facility] Work Phone: Clinical Notes 07-01-2022 to 01-16-2025 Anastasiia Colón APRN.[employer] - 12/27/2024 3:29 PM Iwona Hammond RN - 12/27/2024 12:26 PM Anastasiia Schmitt APRN.BLUEPRINT [employer]KER - 12/20/2024 5:23 PM Iwona Hammond RN - 12/20/2024 10:08 AM EDT Note Date & Type Note Facility 01-16-2025 Note HNO ID: [id number] Author: IWONA DONATO RN Service: ? Author Type: Registered Nurse Type: Progress Notes Filed: 01/16/2025 16:30 Note Text: pcp agrees with information [facility] 01-16-2025 Note HNO ID: [id number] Author: IWONA DONATO RN Service: ? Author Type: Registered Nurse Type: Progress Notes Filed: 01/16/2025 16:30 Note Text: patient had inr completed at [facility] patients inr is 1.4 (patients inr range is 2.0-3.0) patient is currently taking 2mg Tues,Thurs,Sat and 1mg all other days patients last dose change was on 12/27/24 due to a low level of 1.2 (dose at that time was 2mg Tues,Thurs and 1mg all other days) patient has had no changes in medication except for coumadin and no missed doses and no change in diet recommend: patient change coumadin to 1mg Mon,Wed,Fri and 2mg all other days and recheck in 3 weeks due to patient will be stopping coumadin on Tuesday for 5 days due to procedure patient has been scheduled for a 3 week follow up inr on 02/06/25 please review and advise on recommendation patient only needs called if provider does not agree with recommendation [facility] 12-27-2024 Note HNO ID: [id number] Author: ANASTASIIA COLÓN APRN.[employer] Service: ? Author Type: Nurse Specialist Type: Progress Notes Filed: 12/27/2024 16:32 Note Text: Recommend Coumadin 2 mg Tuesday and 1 mg all other days and check INR in 3 weeks [facility] 12-27-2024 History of Presen t illness Narrative Recommend Coumadin 2 mg Tuesday and 1 mg all other days and check INR in 3 weeks patient had inr completed at [facility] patients inr is 1.2 (patients inr range is 2.0-3.0) patient is currently taking 2mg Tues,Thurs and 1mg all other days patients last dose change was on 12/13/24 due to a high level of 3.7 (dose at that time was 2mg daily) patient has had no changes in medication and no missed doses and no change in diet recommend: patient change coumadin to 2mg Tues,Thurs Sat and 1mg all other days and recheck in 3 weeks due to the cc is closed at the 2 week roxann and patient declines lab patient has been scheduled for a 3 week follow up inr on 01/16/25 please review and advise on recommendation patient only needs called if provider does not agree with recommendation documented in this encounter [facility] 12-27-2024 Note HNO ID: [id number] Author: IWONA DONATO, XOCHILT Service: ? Author Type: Registered Nurse Type: Progress Notes Filed: 12/27/2024 16:32 Note Text: patient had inr completed at [facility] patients inr is 1.2 (patients inr range is 2.0-3.0) patient is currently taking 2mg Tues,Thurs and 1mg all other days patients last dose change was on 12/13/24 due to a high level of 3.7 (dose at that time was 2mg daily) patient has had no changes in medication and no missed doses and no change in diet recommend: patient change coumadin to 2mg Tues,Thurs Sat and 1mg all other days and recheck in 3 weeks due to the cc is closed at the 2 week roxann and patient declines lab patient has been scheduled for a 3 week follow up inr on 01/16/25 please review and advise on recommendation patient only needs called if provider does not agree with recommendation [facility] 12-20-2024 Note HNO ID: [id number] Author: ANASTASIIA COLÓN APRN.[employer] Service: ? Author Type: Nurse Specialist Type: Progress Notes Filed: 12/24/2024 16:32 Note Text: Continue with Coumadin dose unchanged, check INR in 1 week [facility] 12-20-2024 History of Presen t illness Narrative Continue with Coumadin dose unchanged, check INR in 1 week patient had inr completed at [facility] patients inr is 1.7 (patients inr range is 2.0-3.0) patient is currently taking 2mg Tues,Thurs and 1mg all other days patients last dose change was on 12/13/24 due to a high level of 3.7 (dose at that time was 2mg daily) patient has had no changes in medication except for coumadin and patient did miss a dose and no change in diet Advised patient to continue on the same dose(s) and that they would only be contacted regarding dosage and follow up instructions after review with provider, if a change is needed. Written instructions given and patient verbalized understanding. Presently scheduled in 1 weeks (12/27/24) for follow up INR since level is just slightly low but could be due to the missed dose documented in this encounter [facility] 12-20-2024 Note HNO ID: [id number] Author: IWONA DONATO RN Service: ? Author Type: Registered Nurse Type: Progress Notes Filed: 12/24/2024 16:32 Note Text: patient had inr completed at [facility] patients inr is 1.7 (patients inr range is 2.0-3.0) patient is currently taking 2mg Tues,Thurs and 1mg all other days patients last dose change was on 12/13/24 due to a high level of 3.7 (dose at that time was 2mg daily) patient has had no changes in medication except for coumadin and patient did miss a dose and no change in diet Advised patient to continue on the same dose(s) and that they would only be contacted regarding dosage and follow up instructions after review with provider, if a change is needed. Written instructions given and patient verbalized understanding. Presently scheduled in 1 weeks (12/27/24) for follow up INR since level is just slightly low but could be due to the missed dose [facility] 12-13-2024 Note HNO ID: [id number] Author: ANASTASIIA COLÓN APRN.CNS Service: ? Author Type: Nurse Specialist Type: Progress Notes Filed: 12/13/2024 16:26 Note Text: Hold Coumadin tomorrow. Then take 2 mg Coumadin Tuesday and 1 mg all other days. Check INR in 1 week [facility] 12-13-2024 History of Presen t illness Narrative Hold Coumadin tomorrow. Then take 2 mg Coumadin Tuesday and 1 mg all other days. Check INR in 1 week patient had inr completed at [facility] patients inr is 3.7 (patients inr range is 2.0-3.0) patient is currently taking 2mg daily patients last dose change was on 12/06/24 due to a high level of 4.6 (dose at that time was 3mg Tues,Thurs,Sat and 2mg all other days) patient has had no change in medication except for coumadin and no uninstructed missed doses and no change in diet recommend: patient hold coumadin tomorrow due to already took medication today and then start on 2mg Tues,Thurs and 1mg all other days and recheck in 1 week patient has been scheduled for a 1 week follow up inr on 12/20/24 please review and advise on recommendation patient only needs called if provider does not agree with recommendation documented in this encounter [facility] 12-13-2024 Note HNO ID: [id number] Author: IWONA DONATO RN Service: ? Author Type: Registered Nurse Type: Progress Notes Filed: 12/13/2024 16:26 Note Text: patient had inr completed at [facility] patients inr is 3.7 (patients inr range is 2.0-3.0) patient is currently taking 2mg daily patients last dose change was on 12/06/24 due to a high level of 4.6 (dose at that time was 3mg Tues,Thurs,Sat and 2mg all other days) patient has had no change in medication except for coumadin and no uninstructed missed doses and no change in diet recommend: patient hold coumadin tomorrow due to already took medication today and then start on 2mg Tues,Thurs and 1mg all other days and recheck in 1 week patient has been scheduled for a 1 week follow up inr on 12/20/24 please review and advise on recommendation patient only needs called if provider does not agree with recommendation [facility] 12-06-2024 Note HNO ID: [id number] Author: IWONA DONATO, XOCHILT Service: ? Author Type: Registered Nurse Type: Progress Notes Filed: 12/06/2024 16:31 Note Text: PATIENT NOTIFIED OF INFORMATION [facility] 12-06-2024 Note HNO ID: [id number] Author: ANASTASIIA COLÓN APRN.[employer]UE[employer]KER Service: ? Author Type: Nurse Specialist Type: Progress Notes Filed: 12/06/2024 16:31 Note Text: Recommend hold Coumadin Tuesday and Tuesday and resume Coumadin at 2 mg daily on Tuesday. Reports already took Coumadin today. Check INR 1 week [facility] 12-06-2024 Note HNO ID: [id number] Author: IWONA DONATO RN Service: ? Author Type: Registered Nurse Type: Progress Notes Filed: 12/06/2024 16:31 Note Text: patient had inr completed at [facility] patients inr is 4.6 (patients inr range is 2.0-3.0) patient is currently taking 3mg Tues,Thurs,Sat and 2mg all other days patients last dose change was on 11/28/24 due to a high level of 3.8 (dose at that time was 2mg Mon,Wed,Fri and 3mg all other days) patient has had no changes in medication except for coumadin and no missed doses and no change in diet recommend: patient hold coumadin tomorrow due to patient already took medication today and then starting Tuesday go to 2mg daily and recheck in 1 week patient has been scheduled for a 1 week follow up inr on 12/13/24 please review and advise on recommendation patient only needs called if provider does not agree with recommendation [facility] 11-28-2024 History of Presen t illness Narrative pcp agrees with information patient had inr completed at [facility] patients inr is 3.8 (patients inr range is 2.0-3.0) patient is currently taking 2mg Mon,Wed,fri and 3mg all other days patients last dose change was on 07/05/24 due to a low level of 1.3 (dose at that time was 3mg Tues,Thurs,Sun and 2mg all other days) patient has had no changes in medication and no missed doses and no change in diet recommend: patient change coumadin to 3mg Tues,Thurs,Sat and 2mg all other days and recheck in 1 week patient has been scheduled for a 1 week follow up inr on 12/06/24 please review and advise on recommendation patient only needs called if provider does not agree with recommendation documented in this encounter [facility] 11-28-2024 Note HNO ID: [id number] Author: IWONA DONATO RN Service: ? Author Type: Registered Nurse Type: Progress Notes Filed: 11/28/2024 16:13 Note Text: pcp agrees with information [facility] 11-28-2024 Note HNO ID: [id number] Author: IWONA DONATO RN Service: ? Author Type: Registered Nurse Type: Progress Notes Filed: 11/28/2024 16:13 Note Text: patient had inr completed at [facility] patients inr is 3.8 (patients inr range is 2.0-3.0) patient is currently taking 2mg Mon,Wed,fri and 3mg all other days patients last dose change was on 07/05/24 due to a low level of 1.3 (dose at that time was 3mg Tues,Thurs,Sun and 2mg all other days) patient has had no changes in medication and no missed doses and no change in diet recommend: patient change coumadin to 3mg Tues,Thurs,Sat and 2mg all other days and recheck in 1 week patient has been scheduled for a 1 week follow up inr on 12/06/24 please review and advise on recommendation patient only needs called if provider does not agree with recommendation [facility] 11-15-2024 Telephone encounter Note Prescription Refill Information The patient has been identified by name and date of : Yes Caregiver verified no other encounters exist for this prescription request: Yes Caregiver confirmed with patient/requestor that no other refills are due, in the near future, with this provider at this time: Yes The last office visit in the department: 10/24/24 Does the patient have a future office visit with this provider/department: Yes 01/29/25 Requested Prescriptions Pending Prescriptions Disp Refills tiZANidine (ZANAFLEX) 4 mg tablet 30 tablet 2 Sig: Take 1 tablet by mouth every 8 hours as needed. Kaylyn Sagastume November 15, 2024 8:33 AM [facility] 11-15-2024 Miscellaneous Notes Prescription Refill Information The patient has been identified by name and date of : Yes Caregiver verified no other encounters exist for this prescription request: Yes Caregiver confirmed with patient/requestor that no other refills are due, in the near future, with this provider at this time: Yes The last office visit in the department: 10/24/24 Does the patient have a future office visit with this provider/department: Yes 01/29/25 Requested Prescriptions Pending Prescriptions Disp Refills tiZANidine (ZANAFLEX) 4 mg tablet 30 tablet 2 Sig: Take 1 tablet by mouth every 8 hours as needed. Kaylyn Sagastume November 15, 2024 8:33 AM documented in this encounter [facility] 10-31-2024 Telephone encounter Note Patient notified and verbalized understanding. Ngozi Rios LPN [facility] 10-31-2024 Miscellaneous Notes Patient notified and verbalized understanding. Ngozi Rios LPN The following approved medication requests have been transmitted electronically. Requested Prescriptions Signed Prescriptions Disp Refills glimepiride (AMARYL) 2 mg tablet 180 tablet 1 Sig: Take 1 tablet by mouth two times a day. As directed Authorizing Provider: KIERRA SANTIAGO MD Noted needed 2 per day some days. Pt reports she usually took one tablet a day. Pt reports if blood sugars were around 180 or above she would usually take 2 tabs. Pt did not realize she was supposed to call in if her sugars were around 200 or higher. Zoey Tom LPN Tried calling patient to verify how long she has been doing glimepiride 2 mg BID? Per instructions she was to call in and let us know if BS were increased so we could increase. This is probably why she is out of medication since we were unaware she increased and now needs rx resent. Please verify what BS readings were when taken BID? Olga Lidia Eubanks MA Jarod is a patient of Kierra Santiago MD today she called [facility] regarding: Disp Refills Start End glimepiride (AMARYL) 2 mg tablet 90 tablet 3 02/23/2024 -- Sig: Take 1 tablet by mouth daily with breakfast. Check blood sugars daily, if remaining above 200 consistently in 2 to 4 weeks will increase the dose Sent to pharmacy as: glimepiride (AMARYL) 2 mg tablet Class: Normal Route: ORAL Order: [id number] E-Prescribing Status: Receipt confirmed by pharmacy (02/23/2024 10:07 AM EDT) Per patient, she is out of medication. However, she stated that she called [facility] and was told that they cannot fill this. Patient stated at times when BS is over 200, she does take an extra pill, she is not sure if this is the reason. She is requesting the office call the Pharmacy to check on this. Please call her back. Patient has been identified by name and birthdate. Duration of symptoms: N/A Person calling: self Call patient at: at home Was an appointment scheduled: No Closing statement: Results or non-symptom based questions: Thank you for calling [facility], your call will be returned within the next business day. Yarelis Petty documented in this encounter [facility] 10-30-2024 Telephone encounter Note The following approved medication requests have been transmitted electronically. Requested Prescriptions Signed Prescriptions Disp Refills glimepiride (AMARYL) 2 mg tablet 180 tablet 1 Sig: Take 1 tablet by mouth two times a day. As directed Authorizing Provider: KIERRA SANTIAGO MD Noted needed 2 per day some days. [facility] 10-30-2024 Telephone encounter Note Pt reports she usually took one tablet a day. Pt reports if blood sugars were around 180 or above she would usually take 2 tabs. Pt did not realize she was supposed to call in if her sugars were around 200 or higher. Zoey Tom LPN [facility] 10-29-2024 Telephone encounter Note Tried calling patient to verify how long she has been doing glimepiride 2 mg BID? Per instructions she was to call in and let us know if BS were increased so we could increase. This is probably why she is out of medication since we were unaware she increased and now needs rx resent. Please verify what BS readings were when taken BID? Olga Lidia Eubanks MA [facility] 10-29-2024 Telephone encounter Note Jarod is a patient of Kierra Santiago MD today she called [facility] regarding: Disp Refills Start End glimepiride (AMARYL) 2 mg tablet 90 tablet 3 02/23/2024 -- Sig: Take 1 tablet by mouth daily with breakfast. Check blood sugars daily, if remaining above 200 consistently in 2 to 4 weeks will increase the dose Sent to pharmacy as: glimepiride (AMARYL) 2 mg tablet Class: Normal Route: ORAL Order: [id number] E-Prescribing Status: Receipt confirmed by pharmacy (02/23/2024 10:07 AM EDT) Per patient, she is out of medication. However, she stated that she called [facility] and was told that they cannot fill this. Patient stated at times when BS is over 200, she does take an extra pill, she is not sure if this is the reason. She is requesting the office call the Pharmacy to check on this. Please call her back. Patient has been identified by name and birthdate. Duration of symptoms: N/A Person calling: self Call patient at: at home Was an appointment scheduled: No Closing statement: Results or non-symptom based questions: Thank you for calling [facility], your call will be returned within the next business day. Yarelis Petty [facility] 10-24-2024 Note HNO ID: [id number] Author: IWONA DONATO, RN Service: ? Author Type: Registered Nurse Type: Progress Notes Filed: 10/24/2024 16:31 Note Text: pcp agrees with information [facility] 10-24-2024 History of Presen t illness Narrative pcp agrees with information patient had inr completed at [facility] patients inr is 2.5 (patients inr range [...] verbalized understanding. Presently scheduled in 1 month (11/28/24) for follow up INR. documented in this encounter [facility] 10-24-2024 Note HNO ID: [id number] Author: IWONA DONATO RN Service: ? Author Type: Registered Nurse Type: Progress Notes Filed: 10/24/2024 16:31 Note Text: patient had inr completed at [facility] patients inr is 2.5 (patients inr range [...] verbalized understanding. Presently scheduled in 1 month (11/28/24) for follow up INR. [facility] 10-24-2024 Instructions Kierra Santiago MD - 10/24/2024 11:40 AM EDT - Continue taking your current Coumadin dose; your INR goal remains about 2-3 and will be monitored through the Coumadin clinic as before. - Maintain a consistent weekly intake of vitamin K foods (leafy greens like spinach, kale or Syrian chard) so your Coumadin levels stay stable. - Protonix and potassium prescriptions have three refills pending; pick them up at your pharmacy. - Avoid eating large amounts of dried fruit to prevent diarrhea and high blood sugar; if you do have diarrhea, rehydrate with fluids and you may use Imodium as you have. - Continue nightly foot care: massage your feet with vitamin C hand cream and wear your supportive socks to help maintain circulation. - Check your blood pressure daily; your readings around 120/60 mmHg are excellent--keep tracking them as you have been. - Schedule blood work (INR, complete blood count and kidney function tests) any time after tomorrow--either here or through Dr. Herrera/Coumadin clinic--to ensure your levels remain stable. - Call Dr. Giron s office (GI) to set up your follow-up appointment for the bleeding ulcer evaluation if you do not hear from his office. documented in this encounter [facility] 10-24-2024 Note HNO ID: [id number] Author: KIERRA SANTIAGO MD Service: ? Author Type: Physician Type: Progress Notes Filed: 01/16/2025 20:04 Note Text: This note was created using [employer]wi[employer]. Subjective Jarod Pritchard is a 84 year old female. SUBJECTIVE: PAST MEDICAL HISTORY Diagnosis Date Atrial fibrillation (HCC) Diabetes mellitus (HCC) Factor V deficiency (HCC) GERD (gastroesophageal reflux disease) TIA (transient ischemic attack) 2001 Current Outpatient Medications Medication Sig amLODIPine (NORVASC) 10 mg tablet Take 10 mg by mouth once daily. losartan (COZAAR) 100 mg tablet Take 100 mg by mouth once daily. metoprolol succinate ER (TOPROL XL) 25 mg 24 hr tablet Take 25 mg by mouth two times a day. clopidogrel (PLAVIX) 75 mg tablet Take 1 tablet by mouth once daily. gabapentin (NEURONTIN) 100 mg capsule Take 1 capsule by mouth two times a day for 180 days. oxybutynin ER (DITROPAN XL) 10 mg 24 hr tablet Take 1 tablet by mouth once daily. fluticasone (FLONASE) 50 mcg/actuation nasal spray Use 2 Sprays in each nostril once daily. simvastatin (ZOCOR) 80 mg tablet Take 1 tablet by mouth daily at bedtime. warfarin (COUMADIN) 2 mg tablet Take 2 tablets by mouth once daily. magnesium chloride 64 mg magnesium tab Take 2 tablets by mouth once daily. furosemide (LASIX) 40 mg tablet Take 1 tablet by mouth once daily. acetaminophen (TYLENOL) 500 mg tablet 1,000 mg. ferrous sulfate 325 mg (65 mg iron) tablet Take 325 mg by mouth. tiZANidine (ZANAFLEX) 4 mg tablet Take 1 tablet by mouth every 8 hours as needed. glimepiride (AMARYL) 2 mg tablet Take 1 tablet by mouth two times a day. As directed potassium chloride ER (KLOR-CON) 20 mEq tablet Take 1 tablet by mouth two times a day. pantoprazole DR (PROTONIX) 40 mg tablet Take 1 tablet by mouth every 12 hours. No current facility-administered medications for this visit. Review of Systems Objective BP 120/60 Pulse 72 Ht 158.8 cm (5' 2.5) Wt 67.3 kg (148 lb 5.9 oz) BMI 26.70 kg/m? Last 5 Encounter Wt Readings: Date: Wt: 10/24/2024 67.3 kg (148 lb 5.9 oz) 07/17/2024 64 kg (141 lb 1.5 oz) 06/04/2024 64.9 kg (143 lb) 04/23/2024 64.9 kg (143 lb) 02/23/2024 62.9 kg (138 lb 10.7 oz) No waist measurement recorded Estimated body mass index is 26.7 kg/m? as calculated from the following: Height as of this encounter: 158.8 cm (5' 2.5). Weight as of this encounter: 67.3 kg (148 lb 5.9 oz). Last 5 Encounter BP Readings: Date: BP: 10/24/2024 120/60 07/17/2024 131/65 06/04/2024 142/64 05/08/2024 117/54 04/23/2024 178/56 Physical Exam Constitutional: Appearance: Normal appearance. HENT: Head: Normocephalic. Eyes: Conjunctiva/sclera: Conjunctivae normal. Cardiovascular: Rate and Rhythm: Normal rate and regular rhythm. Heart sounds: Normal heart sounds. Pulmonary: Effort: Pulmonary effort is normal. Breath sounds: Normal breath sounds. Musculoskeletal: Right lower le+ Edema present. Left lower leg: No edema. Skin: General: Skin is warm and dry. Neurological: General: No focal deficit present. Mental Status: She is alert and oriented to person, place, and time. Psychiatric: Mood and Affect: Mood normal. Behavior: Behavior normal. Thought Content: Thought content normal. Judgment: Judgment normal. Assessment and Plan ASSESSMENT AND PLAN # Anemia, unspecified type (D64.9) - Recent hospitalization due to significant anemia with hemoglobin dropping to 6.5 g/dL, requiring transfusion of 2 units of blood to raise hemoglobin to 8 g/dL. - Ordered follow-up CBC to monitor hemoglobin levels; patient will return for lab draw after tomorrow. # Acute gastric ulcer, unspecified whether gastric ulcer hemorrhage or perforation present (K25.3) # Duodenal ulcer (K26.9) - Recent endoscopy by Dr. Giron revealed a bleeding gastric ulcer, which was cauterized. - Patient had two episodes of gastrointestinal bleeding; no follow-up appointment scheduled with gastroenterology. - Advised patient to contact Dr. Giron's office to schedule a follow-up appointment. - Refilled Protonix with 3 refills. # Type 2 diabetes mellitus with diabetic polyneuropathy, without long-term current use of insulin ([facility]) (E11.42) - Blood glucose levels generally well-controlled; recent spike attributed to excessive intake of dried fruit. - Advised patient to maintain a consistent diet to avoid fluctuations in blood glucose levels. # Stage 3b chronic kidney disease ([facility]) (N18.32) - Kidney function stable during recent hospitalization. - Will monitor renal function with upcoming lab work. 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 - Continues on Coumadin therapy managed by the Coumadin clinic; recent INR 2.5. - E (more content not included)... [facility] 10-24-2024 History of Presen t illness Narrative This note was created using [employer]. Subjective Jarod Pritchard is a 84 year old female. SUBJECTIVE: Jarod Pritchard is a 84-year-old female with a history of Factor V Leiden, atrial fibrillation, and TIA, presenting for follow-up after recent hospitalizations for gastrointestinal bleeding and a two-way bypass surgery. Jarod reports two recent hospitalizations for gastrointestinal bleeding, which she attributes to her anticoagulation therapy. During her most recent hospitalization, she received two units of blood, bringing her hemoglobin level from 6.5 g/dL to 8 g/dL. She notes significant weakness when her hemoglobin level was at 6.5 g/dL, stating, I could hardly function. A bleeding ulcer was identified and cauterized during this hospitalization. She is currently on Coumadin, managed by a Coumadin clinic, and her most recent INR was 2.5 on October 24. She denies any changes in her diet that could affect her INR levels. Jarod also reports a recent two-way bypass surgery to improve circulation in her foot, which was previously compromised. She notes that prior to the surgery, she had no circulation in her foot, and attempts to improve it with soaking and cream were ineffective. The surgery involved multiple incisions, including one up to the groin, due to blockages. She reports good circulation in her foot post-surgery and is able to walk well without the need for a cane or walker. She denies any issues with balance and is able to wear shoes with orthotics comfortably. She also reports an episode of watery diarrhea after consuming a large amount of dried fruit, which she attributes to the fruit. She took Imodium and reports that the diarrhea has resolved. She notes a temporary weight loss from 150.4 lbs to 146.8 lbs due to the diarrhea but has since rehydrated. Her blood pressure readings have been stable, with a recent reading of 120/60 mmHg, and her heart rate remains in the 60s to 70s bpm. She monitors her weight, blood pressure, and heart rate daily. Jarod mentions a family history of cirrhosis of the liver, with her sister dying at age 62 from the condition. She denies any history of alcohol use. She also notes that her father of a stroke at age 48. PAST MEDICAL HISTORY Diagnosis Date Atrial fibrillation (HCC) Diabetes mellitus (HCC) Factor V deficiency (HCC) GERD (gastroesophageal reflux disease) TIA (transient ischemic attack) 2001 Current Outpatient Medications Medication Sig amLODIPine (NORVASC) 10 mg tablet Take 10 mg by mouth once daily. losartan (COZAAR) 100 mg tablet Take 100 mg by mouth once daily. metoprolol succinate ER (TOPROL XL) 25 mg 24 hr tablet Take 25 mg by mouth two times a day. clopidogrel (PLAVIX) 75 mg tablet Take 1 tablet by mouth once daily. gabapentin (NEURONTIN) 100 mg capsule Take 1 capsule by mouth two times a day for 180 days. potassium chloride ER (KLOR-CON) 20 mEq tablet Take 1 tablet by mouth two times a day. oxybutynin ER (DITROPAN XL) 10 mg 24 hr tablet Take 1 tablet by mouth once daily. fluticasone (FLONASE) 50 mcg/actuation nasal spray Use 2 Sprays in each nostril once daily. simvastatin (ZOCOR) 80 mg tablet Take 1 tablet by mouth daily at bedtime. tiZANidine (ZANAFLEX) 4 mg tablet Take 1 tablet by mouth every 8 hours as needed. warfarin (COUMADIN) 2 mg tablet Take 2 tablets by mouth once daily. magnesium chloride 64 [...] to 4 weeks will increase the dose ferrous sulfate 325 mg (65 mg iron) tablet Take 325 mg by mouth. No current facility-administered medications for this visit. Review of Systems Objective BP 120/60 Pulse 72 Ht 158.8 cm (5' 2.5) Wt 67.3 kg (148 lb 5.9 oz) BMI 26.70 kg/m Last 5 Encounter Wt Readings: Date: Wt: 10/24/2024 67.3 kg (148 lb 5.9 oz) 07/17/2024 64 kg (141 lb 1.5 oz) 06/04/2024 64.9 kg (143 lb) 04/23/2024 64.9 kg (143 lb) 02/23/2024 62.9 kg (138 lb 10.7 oz) No waist measurement recorded Estimated body mass index is 26.7 kg/m as calculated from the following: Height as of this encounter: 158.8 cm (5' 2.5). Weight as of this encounter: 67.3 kg (148 lb 5.9 oz). Last 5 Encounter BP Readings: Date: BP: 10/24/2024 120/60 07/17/2024 131/65 06/04/2024 142/64 05/08/2024 117/54 04/23/2024 178/56 Physical Exam Constitutional: Appearance: Normal appearance. HENT: Head: Normocephalic. Eyes: Conjunctiva/sclera: Conjunctivae normal. Cardiovascular: Rate and Rhythm: Normal rate and regular rhythm. Heart sounds: Normal heart sounds. Pulmonary: Effort: Pulmonary effort is normal. Breath sounds: Normal breath sounds. Musculoskeletal: Right lower le+ Edema present. Left lower leg: No edema. Skin: General: Skin is warm and dry. Neurological: General: No focal deficit present. Mental Status: She is alert and oriented to person, place, and time. Psychiatric: Mood and Affect: Mood normal. Behavior: Behavior normal. Thought Content: Thought content normal. Judgment: Judgment normal. Assessment and Plan ASSESSMENT AND PLAN Kierra Santiago MD Recording using [employer] software for draft documentation of the visit was discussed with the patient/authorized customer development representative; all questions welcomed and answered. Patient/authorized customer development representative agreed to proceed documented in this encounter [facility] 10-19-2024 Telephone encounter Note Patient has been identified by name and date of : yes Patient phones for refill(s): Requested Prescriptions Pending Prescriptions Disp Refills clopidogrel (PLAVIX) 75 mg tablet 90 tablet 3 Sig: Take 1 tablet by mouth once daily. gabapentin (NEURONTIN) 100 mg capsule 180 capsule 1 Sig: Take 1 capsule by mouth two times a day for 180 days. Date of last office visit in primary care: 07/17/2024 Date of next office visit in primary care: 10/24/2024 Please advise. Thank you. Olga Lidia Eubanks MA. [facility] 10-19-2024 Miscellaneous Notes Patient has been identified by name and date of : yes Patient phones for refill(s): Requested Prescriptions Pending Prescriptions Disp Refills clopidogrel (PLAVIX) 75 mg tablet 90 tablet 3 Sig: Take 1 tablet by mouth once daily. gabapentin (NEURONTIN) 100 mg capsule 180 capsule 1 Sig: Take 1 capsule by mouth two times a day for 180 days. Date of last office visit in primary care: 07/17/2024 Date of next office visit in primary care: 10/24/2024 Please advise. Thank you. Olga Lidia Eubanks MA. Jarod Roweleenaroderick says they do not have the script for the clopidogrel and is asking for a new one to be sent in.. Prescription Refill Information The patient has been [...] Yes Requested Prescriptions Pending Prescriptions Disp Refills clopidogrel (PLAVIX) 75 mg tablet 90 tablet 3 Sig: Take 1 tablet by mouth once daily. gabapentin (NEURONTIN) 100 mg capsule 180 capsule 1 Sig: Take 1 capsule by mouth two times a day for 180 days. Zahra Petty October 19, 2024 8:05 AM documented in this encounter [facility] 10-19-2024 Telephone encounter Note Jarod Parrish says they do not have the script for the clopidogrel and is asking for a new one to be sent in.. [facility] Work Phone: 10-19-2024 Telephone encounter Note Prescription Refill Information The [...] Yes Requested Prescriptions Pending Prescriptions Disp Refills clopidogrel (PLAVIX) 75 mg tablet 90 tablet 3 Sig: Take 1 tablet by mouth once daily. gabapentin (NEURONTIN) 100 mg capsule 180 capsule 1 Sig: Take 1 capsule by mouth two times a day for 180 days. Zahra Petty October 19, 2024 8:05 AM [facility] 10-10-2024 Discharge summary Note Date/Time October 10, 2024 3:38pm [facility] Medical Records Department [address] [place] [address] Discharge Summary 10/10/24 1528 MR#: [id number] Acct: [id number] Name: JAROD PRITCHARD Rep #:[id number] : 1940 83 From: Shaan Monae DO PCP: Dr. Kierra Santiago MD Status:AD M IN [facility] Providers Date of Admission: 10/07/24 Primary Care Physician: Dr. Kierra Santiago MD Consultations 10/08/24 00:58 Consult: Gastroenterology Routine Consulting Provider: [facility] Reason for Consult: ABLA, GI bleed EMERGENT Consult: No MD Notified: Yes Date Notified: 10/07/24 Time Notified: 23:49 Method of Notification: Text Reason For Visit: GI BLEED, ABLA, CHEST PAIN/?HF EXAC Diagnosis Discharge Diagnosis (1) ABLA (acute blood loss anemia): Status: Acute Code(s): D62 - Acute posthemorrhagic anemia Plan: Hg down to 6.5, now up to 8 and has remained stable. Continue to monitor. 2/2 GI complicated by anticoagulation Warfarin held. (2) GI bleed: Status: Acute Code(s): K92.2 - Gastrointestinal hemorrhage, unspecified Qualifiers: GI bleed type/associated pathology: melena Qualified Code(s): K92.1 - Melena Plan: EGD on 10/09 showed 2 bleeding angiodysplastic lesions in the stomach. on pantoprazole gtt, since no PUD, will change to boluses. Plan Chronic conditions: * HFpEF: on furosemide, furosemide, losartan * CAD: clopidogrel held given GIB * pAfib: warfarin held given GIB. Resume in 4 days. VTE prophylaxis: SCDs. DC home Medications at Discharge Home Medications oxybutynin chloride 10 mg tablet,extended release 24 hr 10 mg PO DAILY bladder 09/23/23 glimepiride 2 mg tablet 2 mg PO DAILY dm 12/31/23 ferrous sulfate 325 mg (65 mg iron) tablet (FeroSul) 325 mg PO DAILY@1200 supplement 30 days #30 tabs 02/03/24 warfarin 2 mg tablet 2 mg PO MOWEFR afib 03/07/24 Held on 10/10/24. Instructions: Resume on 10/15/24. furosemide 40 mg tablet 40 mg PO DAILY water pill 30 days #60 tabs 03/19/24 clopidogrel 75 mg tablet 75 mg PO DAILY 30 days #30 tabs 04/05/24 Held on 10/10/24. Instructions: Resume on 10/14/24. pantoprazole 40 mg tablet,delayed release 40 mg PO BID 30 days #60 tabs 04/05/24 simvastatin 80 mg tablet 80 mg PO QHS 06/20/24 magnesium chloride 64 mg (magnesium chloride) tablet,delayed release (Mag 64) 128 mg PO DAILY 08/17/24 warfarin 3 mg tablet 3 mg PO SUTUTHSA 08/17/24 Held on 10/10/24. Instructions: Resume on 10/14/24. losartan 100 mg tablet 100 mg PO QDAY #90 tabs 08/20/24 potassium chloride 20 mEq tablet,extended release 20 meq PO BID 08/20/24 amlodipine 10 mg tablet 10 mg PO .COMPLEX #90 tabs 09/04/24 acetaminophen 500 mg capsule 500 mg PO QHS PRN pain 10/07/24 fluticasone propionate 50 mcg/actuation nasal spray,suspension 2 spray intranasal Q12H PRN congestion 10/07/24 gabapentin 100 mg capsule 100 mg PO TID 10/07/24 tizanidine 2 mg tablet 2 mg PO Q8 PRN Muscle Spasm 10/07/24 metoprolol succinate 25 mg tablet,extended release 24 hr 25 mg PO BID #60 tabs 10/10/24 sertraline 50 mg tablet 25 mg (1/2 x 50 mg) PO DAILY #0 tabs 10/10/24 Hospital Course Operations None Procedures EGD Summary of Care Provided Minutes Spent on Discharge: 32 Hospital Course: This is an 83-year-old female presents with shortness of breath and dark stools. Patient is on warfarin at home and her admission INR was 2.7. Patient was started on pantoprazole drip. Patient underwent EGD on the that showed 2 bleeding angiodysplastic lesions in the stomach. Patient remained stable and hemoglobin remained stable subsequent thereafter. Patient is on warfarin chronically for paroxysmal atrial fibrillation. Patient will need to hold off on her warfarin for the next 4 days. Patient will need to have follow-up lab work to ensure stability of her hemoglobin. As well as routine INR checks. Weight / BMI Weight Weight: 68.7 kg Body Mass Index (BMI) 26.8 ABG / Lab / Microbiology Data 10/10/24 05:27 10/10/24 05:27 Laboratory: Laboratory Results - last 24 hr 10/09/24 17:21: POC Glucose 132 H 10/09/24 23:02: POC Glucose 133 H 10/10/24 05:27: WBC 6.0, RBC 2.54 L, Hgb 7.8 L, Hct 24.1 L, MCV 94.9, MCH 30.7, MCHC 32.4, RDW Std Deviation 75.9 H, RDW Coeff of Kate 21.8 H, Plt Count 206, MPV10.2, Immature Gran % (Auto) 0.300, Neut % (Auto) 76.5 H, Lymph % (Auto) 12.0 L,[place] % (Auto) 9.6, Eos % (Auto) 1.3, Baso % (Auto) 0.3, Absolute Neuts (auto) 4.6, Absolute Lymphs (auto) 0.72 L, Nucleated RBC % 0.3, Differential Comment SCANNED, Plt Morphology Comment ADEQ, Polychromasia 1+, Basophilic Stippling 1+,Anisocytosis 2+, Ovalocytes 1+, Acanthocytes (Spur) RARE, Sodium 139, Potassium 3.5, Chloride 106, Carbon Dioxide 22.2, Anion Gap 11, BUN 14, Creatinine 0.93, Estim Creat Clear Calc 41.88 L, Est GFR (MDRD) Non-Af 60, BUN/Creatinine Ratio 15.4, Glucose 129 H, Calcium 8.9 10/10/24 05:58: POC Glucose 129 H 10/10/24 11:14: POC Glucose 126 H Microbiology: Microbiology 10/07/24 22:53 Stool Stool Occult Blood (LATANYA) - Final Occult Blood Positive D/C Instructions Discharge Diet: No restrictions DC O2, CPAP, BIPAP Needs Home O2 Discharge instructions: No Meaningful Use Info Meaningful Use Meaningful Use Diagnoses (Choose all that apply): None applicable Ischemic Stroke Statin Dosing Therapy Reference: STATIN DOSE THERAPY REFERENCE: * Patients > 75 years receive moderate or high dose statin therapy. * Patients 75 years or YOUNGER should receive HIGH intensity statin dose unless contraindicated. You will be required to document reason for non-treatment if statin daily dose does not meet guidelines. HIGH DOSE STATIN THERAPY DAILY Atorvastatin > than or = to 40 mg Rosuvastatin > than or = to 20 mg Amlodipine + Atorvastatin > than or = to 2.5/40 mg Ezetimibe + Simvastatin 10/80 mg Simvastatin 80mg Discharge Plan Admission Admit Date/Time: 10/07/24 23:42 Primary Reason for Your Visit: GI bleed Attending Provider: Shaan Monae Primary Care Provider: Kierra Santiago Consulting Providers: Roly Herrera; Kelsie Muñoz Instructions Additional Instructions / Restrictions: You had a ceftezole bleed due to some abnormal blood vessels in your stomach complicated by being on warfarin. Your blood count has remained stable after the transfusions. You hold off on your warfarin for the next 4 days. You will need follow-up your primary care provider to follow-up in regards to your hemoglobin checks as well as a routine INR checks. Please contact your physician if you have recurrent bleeding. Discharge Orders/Prescriptions Prescriptions: New metoprolol succinate 25 mg Tablet Extended Release 24 Hr 25 mg PO BID Qty: 60 0RF sertraline 50 mg Tablet 25 mg PO DAILY Qty: 0 0RF Continued simvastatin 80 mg tablet 80 mg PO QHS ferrous sulfate [FeroSul] 325 mg (65 mg iron) Tablet 325 mg PO DAILY@1200 30 Days Qty: 30 0RF Patient Comments: pt states she takes at bedtime pantoprazole 40 mg Tablet,Delayed Release (Dr/Ec) 40 mg PO BID 30 Days Qty: 60 0RF fluticasone propionate 50 mcg/actuation spray,suspension 2 spray INTRANASAL Q12H PRN (Reason: congestion) acetaminophen 500 mg capsule 500 mg PO QHS PRN (Reason: pain) tizanidine 2 mg Tablet 2 mg PO Q8 PRN (Reason: Muscle Spasm) gabapentin 100 mg capsule 100 mg PO TID oxybutynin chloride 10 mg tablet extended release 24hr 10 mg PO DAILY glimepiride 2 mg tablet 2 mg PO DAILY furosemide 40 mg Tablet 40 mg PO DAILY 30 Days Qty: 60 2RF magnesium chloride [Mag 64] 64 mg tablet,delayed release (DR/EC) 128 mg PO DAILY potassium chloride 20 mEq tablet extended release 20 meq PO BID losartan 100 mg tablet 100 mg PO QDAY Qty: 90 3RF amlodipine 10 mg tablet 10 mg PO .COMPLEX Qty: 90 3RF Rx Instructions: 10 mg orally DAILY: this is a dose increase, pt was using up her 5mg tablets to = 10 mg. Pt is out of med and is in store now. PLEASE FILL, thank you!!; Held clopidogrel 75 mg Tablet 75 mg PO DAILY 30 Days Qty: 30 0RF Hold Instructions: Resume on 10/14/24. warfarin 2 mg tablet 2 mg PO MOWEFR Hold Instructions: Resume on 10/15/24. warfarin 3 mg tablet 3 mg PO SUTUTHSA Hold Instructions: Resume on 10/14/24. Discontinued metoprolol succinate 50 mg tablet extended release 24 hr 50 mg PO BID Qty: 1 0RF Referrals / Follow Up: Kierra Santiago MD [Primary Care Provider] - Within 2 Weeks Disposition Disposition (needs filled in before D/C Order can be placed): Home, Self Care Charges/Coding Visit Charges Inpatient E&M: 80042 Disch Hosp >30min 10/10/24 1538 <Electronically signed by Shaan Monae DO> Cosigner Signature (if applicable): CC: Dr. Shaan Monae DO; Dr. Kierra Santiago MD~ Signed [facility] Work Phone: [phone]) 519-176306-11-2025 Progress note Author Shaan Monae [facility] Note Date/Time October 10, 2024 3:27 pm [facility] Medical Records Department [address] [place] [id number] Progress Note - Hospitalist 10/10/24 0808 MR#: [id number] Acct: [id number] Name: JAROD PRITCHARD Rep #:[id number] : 1940 83 From: Shaan Monae DO PCP: Dr. Kierra Santiago MD Status:AD M IN [facility] Reason for Visit Reason for Visit: Diagnoses Acute posthemorrhagic anemia (10/07/24) Activated protein C resistance (10/07/24) Essential (primary) hypertension (10/07/24) Nonrheumatic aortic (valve) stenosis (10/07/24) Paroxysmal atrial fibrillation (10/07/24) Unspecified systolic (congestive) heart failure (10/07/24) Chronic diastolic (congestive) heart failure (10/07/24) Gastric ulcer, unspecified as acute or chronic, without hemorrhage or perforation (10/07/24) Melena (10/07/24) Gastrointestinal hemorrhage, unspecified (10/07/24) Chest pain, unspecified (10/07/24) Subjective Subjective Feeling well. No events overnight. Objective Data Objective Data Vital Signs: Vital Signs Temp Pulse Resp BP Pulse Ox O2 Del Method O2 Flow Rate 36.2 C L 62 16 119/58 L 96 Nasal Cannula 2 10/10/24 04:43 10/10/24 07:59 10/10/24 04:43 10/10/24 04:43 10/10/24 04:43 10/10/24 04:45 10/10/24 04:45 Oxygen Flow Rate (L/min) 2 Oxygen Delivery Method Nasal Cannula Weight: 68.7 kg Body Mass Index (BMI) 26.8 Intake & Output: Intake and Output for Last 24 Hours 10/08/24 10/09/24 10/10/24 23:59 23:59 23:59 Intake Total 1487.58 / 1487.58 685.42 / 805.42 120 / 120 Output Total 1475 / 1475 Balance 12.58 / 12.58 685.42 / 805.42 120 / 120 Lab / Micro Data 10/10/24 05:27 10/10/24 05:27 Labs: Laboratory Results - last 24 hr 10/09/24 12:59: POC Glucose 123 H 10/09/24 17:21: POC Glucose 132 H 10/09/24 23:02: POC Glucose 133 H 10/10/24 05:27: WBC 6.0, RBC 2.54 L, Hgb 7.8 L, Hct 24.1 L, MCV 94.9, MCH 30.7, MCHC 32.4, RDW Std Deviation 75.9 H, RDW Coeff of Kate 21.8 H, Plt Count 206, MPV10.2, Immature Gran % (Auto) 0.300, Neut % (Auto) 76.5 H, Lymph % (Auto) 12.0 L,[place] % (Auto) 9.6, Eos % (Auto) 1.3, Baso % (Auto) 0.3, Absolute Neuts (auto) 4.6, Absolute Lymphs (auto) 0.72 L, Nucleated RBC % 0.3, Differential Comment SCANNED, Plt Morphology Comment ADEQ, Polychromasia 1+, Basophilic Stippling 1+,Anisocytosis 2+, Ovalocytes 1+, Acanthocytes (Spur) RARE, Sodium 139, Potassium 3.5, Chloride 106, Carbon Dioxide 22.2, Anion Gap 11, BUN 14, Creatinine 0.93, Estim Creat Clear Calc 41.88 L, Est GFR (MDRD) Non-Af 60, BUN/Creatinine Ratio 15.4, Glucose 129 H, Calcium 8.9 10/10/24 05:58: POC Glucose 129 H Micro: Microbiology 10/07/24 22:53 Stool Stool Occult Blood (LATANYA) - Final Occult Blood Positive Rhythm Strip Rhythm Strip: Sinus Rhythm Rate: 55 Ectopy: PVC(s) Physical Exam Const alert and no apparent distress Constitutional Narrative: up in chair. Neuro oriented x3 and CN's II-XII intact bilaterally Sensorium / Orientation: awake and alert Assessment & Plan Assessment/Plan (1) ABLA (acute blood loss anemia): PLAN: Hg down to 6.5, now up to 8 and has remained stable. Continue to monitor. 2/2 GI complicated by anticoagulation Warfarin held. (2) GI bleed: QUALIFIERS: GI bleed type/associated pathology: melena Qualified Code(s): K92.1 - Melena PLAN: EGD on 10/09 showed 2 bleeding angiodysplastic lesions in the stomach. on pantoprazole gtt, since no PUD, will change to boluses. PLAN: Plan Chronic conditions: * HFpEF: on furosemide, furosemide, losartan * CAD: clopidogrel held given GIB * pAfib: warfarin held given GIB. Resume in 4 days. VTE prophylaxis: SCDs. DC home 10/10/24 1527 <Electronically signed by Shaan Monae DO> Cosigner Signature (if applicable): CC: ~ Signed [facility] Work Phone: [phone] 400-749606-11-2025 Discharge summary [facility] Medical Records Department [address] [place] [address] Discharge Summary 10/10/24 1528 MR#: [id number] Acct: [id number] Name: JAROD PRITCHARD Rep #:[id number] : 1940 83 From: Shaan Monae DO PCP: Dr. Kierra Santiago MD Status:AD M IN Location: [facility] [id number]- [id number] Providers Date of Admission: 10/07/24 Primary Care Physician: Dr. Kierra Santiago MD Consultations 10/08/24 00:58 Consult: Gastroenterology Routine Consulting Provider: [facility] Reason for Consult: ABLA, GI bleed EMERGENT Consult: No MD Notified: Yes Date Notified: 10/07/24 Time Notified: 23:49 Method of Notification: Text Reason For Visit: GI BLEED, ABLA, CHEST PAIN/?HF EXAC Diagnosis Discharge Diagnosis (1) ABLA (acute blood loss anemia): Status: Acute Code(s): D62 - Acute posthemorrhagic anemia Plan: Hg down to 6.5, now up to 8 and has remained stable. Continue to monitor. 2/2 GI complicated by anticoagulation Warfarin held. (2) GI bleed: Status: Acute Code(s): K92.2 - Gastrointestinal hemorrhage, unspecified Qualifiers: GI bleed type/associated pathology: melena Qualified Code(s): K92.1 - Melena Plan: EGD on 10/09 showed 2 bleeding angiodysplastic lesions in the stomach. on pantoprazole gtt, since no PUD, will change to boluses. Plan Chronic conditions: * HFpEF: on furosemide, furosemide, losartan * CAD: clopidogrel held given GIB * pAfib: warfarin held given GIB. Resume in 4 days. VTE prophylaxis: SCDs. DC home Medications at Discharge Home Medications oxybutynin chloride 10 mg tablet,extended release 24 hr 10 mg PO DAILY bladder 09/23/23 glimepiride 2 mg tablet 2 mg PO DAILY dm 12/31/23 ferrous sulfate 325 mg (65 mg iron) tablet (FeroSul) 325 mg PO DAILY@1200 supplement 30 days #30 tabs 02/03/24 warfarin 2 mg tablet 2 mg PO MOWEFR afib 03/07/24 Held on 10/10/24. Instructions: Resume on 10/15/24. furosemide 40 mg tablet 40 mg PO DAILY water pill 30 days #60 tabs 03/19/24 clopidogrel 75 mg tablet 75 mg PO DAILY 30 days #30 tabs 12/05/24 Held on 10/10/24. Instructions: Resume on 10/14/24. pantoprazole 40 mg tablet,delayed release 40 mg PO BID 30 days #60 tabs 04/05/24 simvastatin 80 mg tablet 80 mg PO QHS 06/20/24 magnesium chloride 64 mg (magnesium chloride) tablet,delayed release (Mag 64) 128 mg PO DAILY 08/17/24 warfarin 3 mg tablet 3 mg PO SUTUTHSA 08/17/24 Held on 10/10/24. Instructions: Resume on 10/14/24. losartan 100 mg tablet 100 mg PO QDAY #90 tabs 08/20/24 potassium chloride 20 mEq tablet,extended release 20 meq PO BID 08/20/24 amlodipine 10 mg tablet 10 mg PO .COMPLEX #90 tabs 09/04/24 acetaminophen 500 mg capsule 500 mg PO QHS PRN pain 10/07/24 fluticasone propionate 50 mcg/actuation nasal spray,suspension 2 spray intranasal Q12H PRN congestion 10/07/24 gabapentin 100 mg capsule 100 mg PO TID 10/07/24 tizanidine 2 mg tablet 2 mg PO Q8 PRN Muscle Spasm 10/07/24 metoprolol succinate 25 mg tablet,extended release 24 hr 25 mg PO BID #60 tabs 10/10/24 sertraline 50 mg tablet 25 mg (1/2 x 50 mg) PO DAILY #0 tabs 10/10/24 Hospital Course Operations None Procedures EGD Summary of Care Provided Minutes Spent on Discharge: 32 Hospital Course: This is an 83-year-old female presents with shortness of breath and dark stools. Patient is on warfarin at home and her admission INR was 2.7. Patient was started on pantoprazole drip. Patient underwent EGD on the that showed 2 bleeding angiodysplastic lesions in the stomach. Patient remained stable and hemoglobin remained stable subsequent thereafter. Patient is on warfarin chronically for paroxysmal atrial fibrillation. Patient will need to hold off on her warfarin for the next 4 days. Patient will need to have follow-up lab work to ensure stability of her hemoglobin. As well as routine INR checks. Weight / BMI Weight Weight: 68.7 kg Body Mass Index (BMI) 26.8 ABG / Lab / Microbiology Data 10/10/24 05:27 10/10/24 05:27 Laboratory: Laboratory Results - last 24 hr 10/09/24 17:21: POC Glucose 132 H 10/09/24 23:02: POC Glucose 133 H 10/10/24 05:27: WBC 6.0, RBC 2.54 L, Hgb 7.8 L, Hct 24.1 L, MCV 94.9, MCH 30.7, MCHC 32.4, RDW Std Deviation 75.9 H, RDW Coeff of Kate 21.8 H, Plt Count 206, MPV10.2, Immature Gran % (Auto) 0.300, Neut % (Auto) 76.5 H, Lymph % (Auto) 12.0 L,[place] % (Auto) 9.6, Eos % (Auto) 1.3, Baso % (Auto) 0.3, Absolute Neuts (auto) 4.6, Absolute Lymphs (auto) 0.72 L, Nucleated RBC % 0.3, Differential Comment SCANNED, Plt Morphology Comment ADEQ, Polychromasia 1+, Basophilic Stippling 1+,Anisocytosis 2+, Ovalocytes 1+, Acanthocytes (Spur) RARE, Sodium 139, Potassium 3.5, Chloride 106, Carbon Dioxide 22.2, Anion Gap 11, BUN 14, Creatinine 0.93, Estim Creat Clear Calc 41.88 L, Est GFR (MDRD) Non-Af 60, BUN/Creatinine Ratio 15.4, Glucose 129 H, Calcium 8.9 10/10/24 05:58: POC Glucose 129 H 10/10/24 11:14: POC Glucose 126 H Microbiology: Microbiology 10/07/24 22:53 Stool Stool Occult Blood (LATANYA) - Final Occult Blood Positive D/C Instructions Discharge Diet: No restrictions DC O2, CPAP, BIPAP Needs Home O2 Discharge instructions: No Meaningful Use Info Meaningful Use Meaningful Use Diagnoses (Choose all that apply): None applicable Ischemic Stroke Statin Dosing Therapy Reference: STATIN DOSE THERAPY REFERENCE: * Patients > 75 years receive moderate or high dose statin therapy. * Patients 75 years or YOUNGER should receive HIGH intensity statin dose unless contraindicated. You will be required to document reason for non-treatment if statin daily dose does not meet guidelines. HIGH DOSE STATIN THERAPY DAILY Atorvastatin > than or = to 40 mg Rosuvastatin > than or = to 20 mg Amlodipine + Atorvastatin > than or = to 2.5/40 mg Ezetimibe + Simvastatin 10/80 mg Simvastatin 80mg Discharge Plan Admission Admit Date/Time: 10/07/24 23:42 Primary Reason for Your Visit: GI bleed Attending Provider: Shaan Monae Primary Care Provider: Kierra Santiago Consulting Providers: Roly Herrera; Kelsie Muñoz Instructions Additional Instructions / Restrictions: You had a ceftezole bleed due to some abnormal blood vessels in your stomach complicated by being on warfarin. Your blood count has remained stable after the transfusions. You hold off on your warfarin for the next 4 days. You will need follow-up your primary care provider to follow-up in regards to your hemoglobin checks as well as a routine INR checks. Please contact your physician if you have recurrent bleeding. Discharge Orders/Prescriptions Prescriptions: New metoprolol succinate 25 mg Tablet Extended Release 24 Hr 25 mg PO BID Qty: 60 0RF sertraline 50 mg Tablet 25 mg PO DAILY Qty: 0 0RF Continued simvastatin 80 mg tablet 80 mg PO QHS ferrous sulfate [FeroSul] 325 mg (65 mg iron) Tablet 325 mg PO DAILY@1200 30 Days Qty: 30 0RF Patient Comments: pt states she takes at bedtime pantoprazole 40 mg Tablet,Delayed Release (Dr/Ec) 40 mg PO BID 30 Days Qty: 60 0RF fluticasone propionate 50 mcg/actuation spray,suspension 2 spray INTRANASAL Q12H PRN (Reason: congestion) acetaminophen 500 mg capsule 500 mg PO QHS PRN (Reason: pain) tizanidine 2 mg Tablet 2 mg PO Q8 PRN (Reason: Muscle Spasm) gabapentin 100 mg capsule 100 mg PO TID oxybutynin chloride 10 mg tablet extended release 24hr 10 mg PO DAILY glimepiride 2 mg tablet 2 mg PO DAILY furosemide 40 mg Tablet 40 mg PO DAILY 30 Days Qty: 60 2RF magnesium chloride [Mag 64] 64 mg tablet,delayed release (DR/EC) 128 mg PO DAILY potassium chloride 20 mEq tablet extended release 20 meq PO BID losartan 100 mg tablet 100 mg PO QDAY Qty: 90 3RF amlodipine 10 mg tablet 10 mg PO .COMPLEX Qty: 90 3RF Rx Instructions: 10 mg orally DAILY: this is a dose increase, pt was using up her 5mg tablets to = 10 mg. Pt is out of med and is in store now. PLEASE FILL, thank you!!; Held clopidogrel 75 mg Tablet 75 mg PO DAILY 30 Days Qty: 30 0RF Hold Instructions: Resume on 10/14/24. warfarin 2 mg tablet 2 mg PO MOWEFR Hold Instructions: Resume on 10/15/24. warfarin 3 mg tablet 3 mg PO SUTUTHSA Hold Instructions: Resume on 10/14/24. Discontinued metoprolol succinate 50 mg tablet extended release 24 hr 50 mg PO BID Qty: 1 0RF Referrals / Follow Up: Kierra Santiago MD [Primary Care Provider] - Within 2 Weeks Disposition Disposition (needs filled in before D/C Order can be placed): Home, Self Care Charges/Coding Visit Charges Inpatient E&M: 28414 Disch Hosp >30min 10/10/24 1535 Cosigner Signature (if applicable): CC: Dr. Shaan Monae DO; Dr. Kierra Santiago MD~ Signed [facility]06-11-20[facility] Progress note [facility] Medical Records Department [address] [place] [id number] Progress Note - Hospitalist 10/10/24 0808 MR#: [id number] Acct: [id number] Name: JAROD PRITCHARD Rep #:[id number] : 1940 83 From: Shaan Monae DO PCP: Dr. Kierra Santiago MD Status:AD M IN Location: [place] [address] Reason for Visit Reason for Visit: Diagnoses Acute posthemorrhagic anemia (10/07/24) Activated protein C resistance (10/07/24) Essential (primary) hypertension (10/07/24) Nonrheumatic aortic (valve) stenosis (10/07/24) Paroxysmal atrial fibrillation (10/07/24) Unspecified systolic (congestive) heart failure (10/07/24) Chronic diastolic (congestive) heart failure (10/07/24) Gastric ulcer, unspecified as acute or chronic, without hemorrhage or perforation (10/07/24) Melena (10/07/24) Gastrointestinal hemorrhage, unspecified (10/07/24) Chest pain, unspecified (10/07/24) Subjective Subjective Feeling well. No events overnight. Objective Data Objective Data Vital Signs: Vital Signs Temp Pulse Resp BP Pulse Ox O2 Del Method O2 Flow Rate 36.2 C L 62 16 119/58 L 96 Nasal Cannula 2 10/10/24 04:43 10/10/24 07:59 10/10/24 04:43 10/10/24 04:43 10/10/24 04:43 10/10/24 04:45 10/10/24 04:45 Oxygen Flow Rate (L/min) 2 Oxygen Delivery Method Nasal Cannula Weight: 68.7 kg Body Mass Index (BMI) 26.8 Intake & Output: Intake and Output for Last 24 Hours 10/08/24 10/09/24 10/10/24 23:59 23:59 23:59 Intake Total 1487.58 / 1487.58 685.42 / 805.42 120 / 120 Output Total 1475 / 1475 Balance 12.58 / 12.58 685.42 / 805.42 120 / 120 Lab / Micro Data 10/10/24 05:27 10/10/24 05:27 Labs: Laboratory Results - last 24 hr 10/09/24 12:59: POC Glucose 123 H 10/09/24 17:21: POC Glucose 132 H 10/09/24 23:02: POC Glucose 133 H 10/10/24 05:27: WBC 6.0, RBC 2.54 L, Hgb 7.8 L, Hct 24.1 L, MCV 94.9, MCH 30.7, MCHC 32.4, RDW Std Deviation 75.9 H, RDW Coeff of Kate 21.8 H, Plt Count 206, MPV10.2, Immature Gran % (Auto) 0.300, Neut % (Auto) 76.5 H, Lymph % (Auto) 12.0 L,[place] % (Auto) 9.6, Eos % (Auto) 1.3, Baso % (Auto) 0.3, Absolute Neuts (auto) 4.6, Absolute Lymphs (auto) 0.72 L, Nucleated RBC % 0.3, Differential Comment SCANNED, Plt Morphology Comment ADEQ, Polychromasia 1+, Basophilic Stippling 1+,Anisocytosis 2+, Ovalocytes 1+, Acanthocytes (Spur) RARE, Sodium 139, Potassium 3.5, Chloride 106, Carbon Dioxide 22.2, Anion Gap 11, BUN 14, Creatinine 0.93, Estim Creat Clear Calc 41.88 L, Est GFR (MDRD) Non-Af 60, BUN/Creatinine Ratio 15.4, Glucose 129 H, Calcium 8.9 10/10/24 05:58: POC Glucose 129 H Micro: Microbiology 10/07/24 22:53 Stool Stool Occult Blood (LATANYA) - Final Occult Blood Positive Rhythm Strip Rhythm Strip: Sinus Rhythm Rate: 55 Ectopy: PVC(s) Physical Exam Const alert and no apparent distress Constitutional Narrative: up in chair. Neuro oriented x3 and CN's II-XII intact bilaterally Sensorium / Orientation: awake and alert Assessment & Plan Assessment/Plan (1) ABLA (acute blood loss anemia): PLAN: Hg down to 6.5, now up to 8 and has remained stable. Continue to monitor. 2/2 GI complicated by anticoagulation Warfarin held. (2) GI bleed: QUALIFIERS: GI bleed type/associated pathology: melena Qualified Code(s): K92.1 - Melena PLAN: EGD on 10/09 showed 2 bleeding angiodysplastic lesions in the stomach. on pantoprazole gtt, since no PUD, will change to boluses. PLAN: Plan Chronic conditions: * HFpEF: on furosemide, furosemide, losartan * CAD: clopidogrel held given GIB * pAfib: warfarin held given GIB. Resume in 4 days. VTE prophylaxis: SCDs. DC home 10/10/24 1527 Cosigner Signature (if applicable): CC: ~ Signed [facility]06-11-2025 Procedure note [facility] Medical Records Department [address] [place] [id number] EGD Report MR#: [id number] Acct: [id number] Name: JAROD PRITCHARD Rep #:[id number] : 1940 83 From: Robb Giron DO PCP: Dr. Kierra Santiago MD Status:AD M IN Patient Name: Jarod Pritchard Procedure Date: 10/09/2024 11:01 AM Date of : 1940 Age: 83 Procedure: Upper GI endoscopy Indications: Iron deficiency anemia, Unexplained iron deficiency anemia, Melena Providers: Robb Giron DO Medicines: Monitored Anesthesia Care Patient Profile: This is an 83 year old female. Refer to note in patient chart for documentation of history and physical. Patient has symptoms of acute nausea. Her most recent EGD for treatment of bleeding. Complications: No immediate complications. Procedure: Pre-Anesthesia Assessment: - Prior to the procedure, a History and Physical was performed, and patient medications and allergies were reviewed. The patient is competent. The risks and benefits of the procedure and the sedation options and risks were discussed with the patient. All questions were answered and informed consent was obtained. Patient identification and proposed procedure were verified by the physician in the pre-procedure area. Mental Status Examination: alert and oriented. Airway Examination: normal oropharyngeal airway and neck mobility. Respiratory Examination: clear to auscultation. CV Examination: normal. Prophylactic Antibiotics: The patient does not require prophylactic antibiotics. Prior Anticoagulants: The patient has taken no anticoagulant or antiplatelet agents except for NSAID medication. ASA Grade Assessment: II - A patient with mild systemic disease. After reviewing the risks and benefits, the patient was deemed in satisfactory condition to undergo the procedure. The anesthesia plan was to use monitored anesthesia care (MAC). Immediately prior to administration of medications, the patient was re-assessed for adequacy to receive sedatives. The heart rate, respiratory rate, oxygen saturations, blood pressure, adequacy of pulmonary ventilation, and response to care were monitored throughout the procedure. The physical status of the patient was re-assessed after the procedure. After obtaining informed consent, the endoscope was passed under direct vision. Throughout the procedure, the patient's blood pressure, pulse, and oxygen saturations were monitored continuously. The Endoscope was introduced through the mouth, and advanced to the fourth part of the duodenum. Small bowel enteroscopy was deemed necessary. Scope In: 11:50:00 AM Scope Out: 11:55:17 AM Total Procedure Duration Time 0 hours 5 minutes 17 seconds Findings: The examined esophagus was normal. Two 5 mm angiodysplastic lesions with bleeding were found in the cardia and in the gastric fundus. The exam of the duodenum was otherwise normal. Impression: - Normal esophagus. - Two bleeding angiodysplastic lesions in the stomach. - No specimens collected. Recommendation: - Return patient to [facility] for [facility] care. - Advance diet as tolerated. - Continue present medications. Procedure Code(s): --- Professional --- 19072, Small intestinal endoscopy, enteroscopy beyond second portion of duodenum, not including ileum; diagnostic, including collection of specimen(s) by brushing or washing, when performed (separate procedure) CPT copyright 2021 [employer]. All rights reserved. The codes documented in this report are preliminary and upon patient financial advocate review may be revised to meet current compliance requirements. Robb Giron DO 10/09/2024 12:11:26 PM This report has been signed electronically. Number of Addenda: 1 Note Initiated On: 10/09/2024 11:01 AM Addendum Number: 1 Addendum Date: 10/10/2024 2:56:02 PM A gold probe was used to treat the angiodysplastic lesions seen on her upper endoscopy. Robb Giron DO 10/10/2024 2:56:29 PM This report has been signed electronically. 10/10/24 1456 Date _ Robb Giron DO Cosigner Signature: Date (if indicated) CC: Dr. Kierra Santiago MD; Robb Giron DO ~ Date Dictated: 10/09/24 1101 Date Transcribed: Heavy Equipment Rental Associate: RF Signed [facility]06-11-2025 Procedure note [facility] Medical Records Department [address] [place] [address] Operative Report - CC Letter MR#: [id number] Acct: [id number] Name: JAROD PRITCHARD Rep #:[id number] : 1940 83 From: Robb Giron DO PCP: Dr. Kierra Santiago MD Status:AD M IN 10/10/2024 Kierra Santiago [address] [place] [address] Re : Upper GI endoscopy procedure for Jarod Pritchard Dear Dr. Santiago This procedure was performed on Wednesday, October 09, 2024. My impressions and recommendations are as follows: Impressions : - Normal esophagus. - Two bleeding angiodysplastic lesions in the stomach. - No specimens collected. Recommendations : - [facility] to [facility] care. - Advance diet as tolerated. - Continue present medications. My findings are described in the full procedure note, which is enclosed. If I can be of further assistance, please feel free to contact me at . Sincerely, Robb Mack 10/09/2024 12:11:26 PM This report has been signed electronically. 10/10/24 1456 Date _ Robb Mack Cosigner Signature: Date (if indicated) CC: Dr. Kelsie Muñoz MD; Dr. Shaan Monae DO; Dr. Kierra Santiago MD; Dr. Roly Herrera MD ~ Date Dictated: 10/09/24 1101 Date Transcribed: Heavy Equipment Rental Associate: RF Signed [facility]06-10-2025 Consult note Author Stephanie Reardon [facility] Note Date/Time October 09, 2024 4:01 pm [facility] Medical Records Department [address] [place] [address] Anesthesia Postop Eval I 10/09/24 1203 MR#: [id number] Acct: [id number] Name: JAROD PRITCHARD Rep #:[id number] : 1940 83 From: Stephanie ruano GLUER MACHINE OPERATOR PCP: Dr. Kierra Santiago MD Status:AD M IN Y Race: C Location: [place] [address] 08-30 Anesthesia: Postop Eval I Current Vital Signs Temperature: 98.2 F Pulse Rate: 66 Blood Pressure: 109/57 Respiratory Rate: 16 Pulse Ox: 96 Oxygen Delivery Method: Nasal Cannula Oxygen Flow Rate (L/min): 2 Assessment Airway patent: Yes Spontaneous unlabored respirations: Yes Mental status: Awake and Calm nausea: No Vomiting: No Anesthesia Complication: No Fluid Hydration Crystalloid volume administer (ml): 200 Total IV fluid infused: 200 Progress Note Anesthesia document: Postop Eval 1 completed: Yes 10/09/24 1601 <Electronically signed by Stephanie castañeda GLUER MACHINE OPERATOR> Date _ Stephanie Reardon GLUER MACHINE OPERATOR 10/09/24 1335<Electronically signed by Enrique Browne MD> Cosigner Signature: Date Enrique Browne MD CC: ~ Signed [facility] Work Phone: 1(901) 445-558306-10-2025 Progress note Author Shaan Monae [facility] Note Date/Time October 09, 2024 2:28 pm [facility] Medical Records Department [address] [place] [address] Progress Note - Hospitalist 10/09/24825 MR#: [id number] Acct: [id number] Name: JAROD PRITCHARD Rep #:[id number] : 1940 83 From: Shaan Monae DO PCP: Dr. Kierra Santiago MD Status:AD M IN Location: [place] [address] Reason for Visit Reason for Visit: Diagnoses Acute posthemorrhagic anemia (10/07/24) Activated protein C resistance (10/07/24) Essential (primary) hypertension (10/07/24) Nonrheumatic aortic (valve) stenosis (10/07/24) Paroxysmal atrial fibrillation (10/07/24) Unspecified systolic (congestive) heart failure (10/07/24) Gastrointestinal hemorrhage, unspecified (10/07/24) Chest pain, unspecified (10/07/24) Subjective Subjective No further events. Objective Data Objective Data Vital Signs: Vital Signs Temp Pulse Resp BP Pulse Ox O2 Del Method O2 Flow Rate 36.9 C 62 16 125/69 H 95 Nasal Cannula 2 10/09/24 03:20 10/09/24 03:23 10/09/24 03:20 10/09/24 03:20 10/09/24 03:23 10/09/24 03:24 10/09/24 03:24 Oxygen Flow Rate (L/min) 2 Oxygen Delivery Method Nasal Cannula Weight: 68.4 kg Body Mass Index (BMI) 26.6 Intake & Output: Intake and Output for Last 24 Hours 10/07/24 10/08/24 10/09/24 23:59 23:59 23:59 Intake Total 1487.58 / 1487.58 Output Total 1475 / 1475 Balance 12.58 / 12.58 Lab / Micro Data 10/09/24 05:15 10/09/24 05:15 Labs: Laboratory Results - last 24 hr 10/08/24 09:20: WBC 7.2, RBC 2.68 L, Hgb 8.2 L, Hct 25.2 L, MCV 94.0 D, MCH 30.6, MCHC 32.5, RDW Std Deviation 70.7 H, RDW Coeff of Kate 21.8 H, Plt Count 194, MPV 9.9, Immature Gran % (Auto) 0.600, Neut % (Auto) 73.2 H, Lymph % (Auto)15.5 L, [place] % (Auto) 9.5, Eos % (Auto) 0.8, Baso % (Auto) 0.4, Absolute Neuts (auto) 5.3, Absolute Lymphs (auto) 1.12, Nucleated RBC % 1.7, Polychromasia 1+, Hypochromasia 1+, Anisocytosis 1+, PT 22.5 H, INR 1.9, Sodium 140, Potassium 3.7, Chloride 106, Carbon Dioxide 19.3 L, Anion Gap 14, BUN 36 H, Creatinine 1.25 H, Estim Creat Clear Calc 31.37 L, Est GFR (MDRD) Non-Af 43 L, BUN/Creatinine Ratio 29.0 H, Glucose 121 H, Calcium 9.1, Total Bilirubin 0.55, AST 20, ALT 11, Alkaline Phosphatase 48, Total Protein 6.6, Albumin 3.9, Globulin 2.7, Albumin/Globulin Ratio 1.5, Triglycerides 359 H, Cholesterol 160, LDL Cholesterol, Calc 64, VLDL Cholesterol 72 H, HDL Cholesterol 25 L, Cholesterol/HDL Ratio 6.48 10/08/24 11:59: POC Glucose 143 H 10/08/24 17:00: POC Glucose 126 H 10/09/24 00:03: POC Glucose 103 10/09/24 05:15: WBC 6.6, RBC 2.57 L, Hgb 8.0 L, Hct 24.5 L, MCV 95.3, MCH 31.1, MCHC 32.7, RDW Std Deviation 76.2 H, RDW Coeff of Kate 22.8 H, Plt Count 192, MPV9.9, Immature Gran % (Auto) 0.300, Neut % (Auto) 70.7 H, Lymph % (Auto) 18.2 L, [place] % (Auto) 9.1, Eos % (Auto) 1.4, Baso % (Auto) 0.3, Absolute Neuts (auto) 4.7, Absolute Lymphs (auto) 1.20, Nucleated RBC % 0.6, Differential Comment SCANNED, Polychromasia 1+, Anisocytosis 2+, Microcytosis 1+, Macrocytosis 1+, PT22.2 H, INR 1.9, APTT 43.4 H, Sodium 141, Potassium 3.6, Chloride 108, Carbon Dioxide 20.2 L, Anion Gap 12, BUN 20 H, Creatinine 0.98, Estim Creat Clear Calc 39.67 L, Est GFR (MDRD) Non-Af 57 L, BUN/Creatinine Ratio 20.5 H, Glucose 132 H,Calcium 9.0 10/09/24 06:30: POC Glucose 121 H Micro: Microbiology 10/07/24 22:53 Stool Stool Occult Blood (LATANYA) - Final Occult Blood Positive Rhythm Strip Rhythm Strip: Sinus Rhythm Rate: 65 Ectopy: None Physical Exam Const alert and oriented x3 Constitutional Narrative: up in chair with great-granddaughter in chair with her. HEENT head/scalp atraumatic and moist oral mucous membranes Neuro Sensorium / Orientation: awake and alert Assessment & Plan Assessment/Plan (1) ABLA (acute blood loss anemia): PLAN: Hg down to 6.5, now up to 8 Continue to monitor. 2/2 GI complicated by anticoagulation Warfarin held. (2) GI bleed: PLAN: EGD on 10/09 showed 2 bleeding angiodysplastic lesions in the stomach. on pantoprazole gtt, since no PUD, will change to boluses. PLAN: Plan Chronic conditions: * HFpEF: on furomseide, furosemide, losartan * CAD: clopidogrel held given GIB * pAfib: warfarin held given GIB VTE prophylaxis: SCDs. 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 Kierra Santiago MD Status:AD M IN Y Race: C Location: [place] [address] Anesthesia: Postop Eval I Current Vital Signs Temperature: 98.2 F Pulse Rate: 66 Blood Pressure: 109/57 Respiratory Rate: 16 Pulse Ox: 96 Oxygen Delivery Method: Nasal Cannula Oxygen Flow Rate (L/min): 2 Assessment Airway patent: Yes Spontaneous unlabored respirations: Yes Mental status: Awake and Calm nausea: No Vomiting: No Anesthesia Complication: No Fluid Hydration Crystalloid volume administer (ml): 200 Total IV fluid infused: 200 Progress Note Anesthesia document: Postop Eval 1 completed: Yes 10/09/24 1601 garry GLUER MACHINE OPERATOR> Date _ Stephanie Reardon CRNA 10/09/24 1335 Cosigner Signature: Date nErique Browne MD CC: ~ Signed [facility]06-10-2025 Consult note Author Enrique Browne [facility] Note Date/Time October 09, 2024 12:5 5pm [facility] Medical Records Department [address] [place] [address] Anesthesia Postop Eval II 10/09/24 1255 MR#: [id number] Acct: [id number] Name: JAROD PRITCHARD Rep #:[id number] : 1940 83 From: Enrique Browne MD PCP: Dr. Kierra Santiago MD Status:AD M IN Y Race: C Location: [address] Anesthesia Postop Eval I Sum Postop Eval Completion status Anesthesia document: Postop Eval 1 completed: Yes Anesthesia Postop Eval I Summary Anesthesia Postop Eval I Summary: Anesthesia Postop Eval I: Assessment Summary 3 Airway patent Yes 10/09/24 12:04 GLUER MACHINE [email or web address].[email or web address] Spontaneous unlabored Yes 10/09/24 12:04 GLUER MACHINE OPERATOR.[email or web address] respirations Mental status Awake,Calm 10/09/24 12:04 GLUER MACHINE OPERATOR.SKOBY nausea No 10/09/24 12:04 GLUER MACHINE OPERATOR.SKOBY Vomiting No 10/09/24 12:04 GLUER MACHINE OPERATOR.[email or web address] Anesthesia Postop Eval I: Fluid Summary Crystalloid volume administer 200 10/09/24 12:04 GLUER MACHINE OPERATOR.SKOBY (ml) Colloids volume administered ( ml) Blood Product volume administered (ml) Total IV fluid infused 200 10/09/24 12:04 GLUER MACHINE OPERATOR.SKOBY Anesthesia Postop Eval I: Summary Notes Anesthesia Complication No 10/09/24 12:04 GLUER MACHINE OPERATOR.SKOBY Anesthesia Complication Comment: Post-operative progress note Anesthesia: Postop Eval II Evaluation Mental status: Awake Pain Level: 0 nausea: No Vomiting: No 10/09/245 <Electronically signed by Enrique Browne MD > Date _ Enrique Browne MD Cosigner Signature: Date CC: ~ Signed [facility] Work Phone: [phone]) 797-541606-10-2025 Progress note [facility] Medical Records Department [address] [place] [address] Progress Note - Hospitalist 10/09/24825 MR#: [id number] Acct: [id number] Name: JAROD PRITCHARD Rep #:[id number] : 1940 83 From: Shana Monae DO PCP: Dr. Kierra Santiago MD Status:AD M IN Location: [place] [address] Reason for Visit Reason for Visit: Diagnoses Acute posthemorrhagic anemia (10/07/24) Activated protein C resistance (10/07/24) Essential (primary) hypertension (10/07/24) Nonrheumatic aortic (valve) stenosis (10/07/24) Paroxysmal atrial fibrillation (10/07/24) Unspecified systolic (congestive) heart failure (10/07/24) Gastrointestinal hemorrhage, unspecified (10/07/24) Chest pain, unspecified (10/07/24) Subjective Subjective No further events. Objective Data Objective Data Vital Signs: Vital Signs Temp Pulse Resp BP Pulse Ox O2 Del Method O2 Flow Rate 36.9 C 62 16 125/69 H 95 Nasal Cannula 2 10/09/24 03:20 10/09/24 03:23 10/09/24 03:20 10/09/24 03:20 10/09/24 03:23 10/09/24 03:24 10/09/24 03:24 Oxygen Flow Rate (L/min) 2 Oxygen Delivery Method Nasal Cannula Weight: 68.4 kg Body Mass Index (BMI) 26.6 Intake & Output: Intake and Output for Last 24 Hours 10/07/24 10/08/24 10/09/24 23:59 23:59 23:59 Intake Total 1487.58 / 1487.58 Output Total 1475 / 1475 Balance 12.58 / 12.58 Lab / Micro Data 10/09/24 05:15 10/09/24 05:15 Labs: Laboratory Results - last 24 hr 10/08/24 09:20: WBC 7.2, RBC 2.68 L, Hgb 8.2 L, Hct 25.2 L, MCV 94.0 D, MCH 30.6, MCHC 32.5, RDW Std Deviation 70.7 H, RDW Coeff of Kate 21.8 H, Plt Count 194, MPV 9.9, Immature Gran % (Auto) 0.600, Neut % (Auto) 73.2 H, Lymph % (Auto)15.5 L, [place] % (Auto) 9.5, Eos % (Auto) 0.8, Baso % (Auto) 0.4, Absolute Neuts (auto) 5.3, Absolute Lymphs (auto) 1.12, Nucleated RBC % 1.7, Polychromasia 1+, Hypochromasia 1+, Anisocytosis 1+, PT 22.5 H, INR 1.9, Sodium 140, Potassium 3.7, Chloride 106, Carbon Dioxide 19.3 L, Anion Gap 14, BUN 36 H, Creatinine 1.25 H, Estim Creat Clear Calc 31.37 L, Est GFR (MDRD) Non-Af 43 L, BUN/Creatinine Ratio 29.0 H, Glucose 121 H, Calcium 9.1, Total Bilirubin 0.55, AST 20, ALT 11, Alkaline Phosphatase 48, Total Protein 6.6, Albumin 3.9, Globulin 2.7, Albumin/Globulin Ratio 1.5, Triglycerides 359 H, Cholesterol 160, LDL Cholesterol, Calc 64, VLDL Cholesterol 72 H, HDLCholesterol 25 L, Cholesterol/HDL Ratio 6.48 10/08/24 11:59: POC Glucose 143 H 10/08/24 17:00: POC Glucose 126 H 10/09/24 00:03: POC Glucose 103 10/09/24 05:15: WBC 6.6, RBC 2.57 L, Hgb 8.0 L, Hct 24.5 L, MCV 95.3, MCH 31.1, MCHC 32.7, RDW Std Deviation 76.2 H, RDW Coeff of Kate 22.8 H, Plt Count 192, MPV9.9, Immature Gran % (Auto) 0.300, Neut% (Auto) 70.7 H, Lymph % (Auto) 18.2 L, [place] % (Auto) 9.1, Eos % (Auto) 1.4, Baso % (Auto) 0.3, Absolute Neuts (auto) 4.7, Absolute Lymphs (auto) 1.20, Nucleated RBC % 0.6, Differential Comment SCANNED, Polychromasia 1+, Anisocytosis 2+, Microcytosis 1+, Macrocytosis 1+, PT22.2 H, INR 1.9, APTT 43.4 H, Sodium 141, Potassium 3.6, Chloride 108, Carbon Dioxide 20.2 L, Anion Gap 12, BUN 20 H, Creatinine 0.98, Estim Creat Clear Calc 39.67 L, Est GFR (MDRD) Non-Af 57 L, BUN/Creatinine Ratio 20.5 H, Glucose 132 H,Calcium 9.0 10/09/24 06:30: POC Glucose 121 H Micro: Microbiology 10/07/24 22:53 Stool Stool Occult Blood (LATANYA) - Final Occult Blood Positive Rhythm Strip Rhythm Strip: Sinus Rhythm Rate: 65 Ectopy: None Physical Exam Const alert and oriented x3 Constitutional Narrative: up in chair with great-granddaughter in chair with her. HEENT head/scalp atraumatic and moist oral mucous membranes Neuro Sensorium / Orientation: awake and alert Assessment & Plan Assessment/Plan (1) ABLA (acute blood loss anemia): PLAN: Hg down to 6.5, now up to 8 Continue to monitor. 2/2 GI complicated by anticoagulation Warfarin held. (2) GI bleed: PLAN: EGD on 10/09 showed 2 bleeding angiodysplastic lesions in the stomach. on pantoprazole gtt, since no PUD, will change to boluses. PLAN: Plan Chronic conditions: * HFpEF: on furomseide, furosemide, losartan * CAD: clopidogrel held given GIB * pAfib: warfarin held given GIB VTE prophylaxis: SCDs. Charges/Coding Visit Charges Inpatient E&M: 87690 Subs Hosp L2 10/09/24 1428 Cosigner Signature (if applicable): CC: ~ Signed [facility]06-10-2025 Progress note Author Robb Friend [facility] Note Date/Time October 09, 2024 11:3 1am [facility] Medical Records Department [address] [place] [address] Progress Note 10/09/24 1130 MR#: [id number] Acct: [id number] Name: JAROD PRITCHARDINE Rep #:[id number] : 1940 83 From: Robb Giron DO PCP: Dr. Kierra Santiago MD Status:AD M IN Location: [address] Progress Note Patient has been n.p.o. for upper endoscopy regarding acute blood loss anemia. Physical Exam Const alert and no apparent distress HEENT head/scalp atraumatic and moist oral mucous membranes Resp normal respiratory effort, no retractions, no use of accessory muscles and clearto auscultation bilaterally Cardio regular rate, regular rhythm, S1 normal heart sound and S2 normal heart sound GI normal to inspection, nondistended, normoactive bowel sounds, soft to palpation,non-tender and non-distended Neuro Sensorium / Orientation: awake and alert Psych affect normal Assessment & Plan Assessment/Plan (1) Gastric ulcer: PLAN: Assessment and Plan Assessment and Plan (1) GERD (gastroesophageal reflux disease): Status: Acute (2) Gastric ulcer: Status: Acute Plan: This is an 83 yo female pt here today for f/meeks after hospitalization for toe amputation. Pt was found to have a gastric ulcer after undergoing EGD for down trending hemoglobin. She will undergo repeat EGD to assess for healing of the gastric ulcer. -EGD Visit Charges Inpatient E&M: 36429 Subs Hosp L3 10/09/24 1131 <Electronically signed by Robb Giron DO> Robb Giron DO Cosigner Signature (if applicable): CC: ~ Signed [facility] Work Phone: 1(630) 857-764706-10-2025 Consult note [facility] Medical Records Department [address] [place] [address] Anesthesia Postop Eval II 10/09/24 1255 MR#: [id number] Acct: [id number] Name: JAROD PRITCHARD Rep #:[id number] : 1940 83 From: Enrique Browne MD PCP: Dr. Kierra Santiago MD Status:AD M IN Y Race: C Location: [place] [address] 5-1 Anesthesia Postop Eval I Sum Postop Eval Completion status Anesthesia document: Postop Eval 1 completed: Yes Anesthesia Postop Eval I Summary Anesthesia Postop Eval I Summary: Anesthesia Postop Eval I: Assessment Summary 3 Airway patent Yes 10/09/24 12:04 GLUER MACHINE OPERATOR.[email or web address] Spontaneous unlabored Yes 10/09/24 12:04 GLUER MACHINE OPERATOR.SKOBY respirations Mental status Awake,Calm 10/09/24 12:04 GLUER MACHINE OPERATOR.SKOBY nausea No 10/09/24 12:04 GLUER MACHINE OPERATOR.SKOBY Vomiting No 10/09/24 12:04 GLUER MACHINE OPERATOR.SKOBY Anesthesia Postop Eval I: Fluid Summary Crystalloid volume administer 200 10/09/24 12:04 GLUER MACHINE OPERATOR.SKOBY (ml) Colloids volume administered ( ml) Blood Product volume administered (ml) Total IV fluid infused 200 10/09/24 12:04 GLUER MACHINE OPERATOR.SKOBY Anesthesia Postop Eval I: Summary Notes Anesthesia Complication No 10/09/24 12:04 GLUER MACHINE OPERATOR.SKOBY Anesthesia Complication Comment: Post-operative progress note Anesthesia: Postop Eval II Evaluation Mental status: Awake Pain Level: 0 nausea: No Vomiting: No 10/09/24 1255 > Date _ Enrique Browne MD Cosigner Signature: Date CC: ~ Signed [facility]06-10-2025 Consult note Author Enrique dinorah [facility] Note Date/Time October 09, 2024 10:2 3am [facility] Medical Records Department [address] [place] [address] Pre-Anesthesia Evaluation 10/09/24 1022 MR#: [id number] Acct: [id number] Name: JAROD PRITCHARD Rep #:[id number] : 1940 83 From: Enrique Browne MD PCP: Dr. Kierra Santiago MD Status:AD M IN Y Race: C Location: [place] [address] 51 ASA Classification* ASA Classification ASA Classification: 3 and E Assessment & Plan Anesthesia* Anesthesia Assessment Anesthesia Assessment: Discussed sedation and/or anesthesia options, risks, benefits, and alternatives with patient/parents/legal guardian/POA. Questions invited. The patient/parents/legal guardian/POA seems to understand and agrees to proceedwith anesthesia plan. Reviewed the physical assessment, medical history, allergy history and patient home medications list prior to surgery/procedure/anesthetic and documented any changes. Performed airway and anesthesia risk assessments. Anesthesia Type Anesthesia Type: MAC Anesthesia Focused Assessment* Temperature: 98.4 F Pulse Rate: 62 Blood Pressure: 125/69 Respiratory Rate: 16 Pulse Ox: 95 Oxygen Flow Rate (L/min): 2 Airway Assessment Mouth opens: >3 cm Mallampati Score: II Comment: Echocardiogram 12/31/2023. EF 35 to 40%. Labs Anesthesia Preop lab: CBC WBC 6.6 K/mm3 (4.4-11.0) 10/09/24 05:15 10/09/24 RBC 2.57 M/mm3 (4.2-5.4) L 10/09/24 05:15 10/09/24 Hgb 8.0 g/dL (12.0-15.0) L 10/09/24 05:15 10/09/24 Hct 24.5 % (37-47) L 10/09/24 05:15 10/09/24 Plt Count 192 K/mm3 (150-450) 10/09/24 05:15 10/09/24 CHEMISTRY Potassium 3.6 mmol/L (3.3-5.1) 10/09/24 05:15 10/09/24 Sodium 141 mmol/L (133-145) 10/09/24 05:15 10/09/24 Magnesium 2.0 mg/dL (1.5-2.2) 10/07/24 22:22 10/07/24 Phosphorus 4.1 mg/dL (2.5-4.9) 03/08/24 05:15 03/08/24 BUN 20 mg/dL (4-19) H 10/09/24 05:15 10/09/24 Creatinine 0.98 mg/dL (0.70-1.20) 10/09/24 05:15 10/09/24 Glucose 132 mg/dL (70-99) H 10/09/24 05:15 10/09/24 POC Glucose 121 mg/dL (74-106) H 10/09/24 06:30 10/09/24 TSH 5.590 uIU/mL (0.358-3.740) H 03/08/24 05:15 COAG PT 22.2 SECONDS (11.7-14.9) H 10/09/24 05:15 09/30 Pre-Assessment Diagnosis/Proposed Procedure Planned Operative Procedure(s): EGD. 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 When Was Last Pacemaker Check QUESTION #4 FULL TEXT: You/Your Family Experience fever (hyperthermia) with Anesthesia Last Oral Intake Last Oral intake: Last Oral Intake NPO since 00:00 10/09/24 10:20 Meds taken in AM with sips of water? Meds patient instructed to take am of surgery PONV PONV - spring salvage worker: PONV - spring salvage worker Female HX of Motion Sickness HX of N/V After Surgery Non-Smoker Duration of Surgery greater than 60 minutes Number of Risk Factors PONV Score Height & Weight Height & Weight: Anesthesia: Height & Weight Height 5 ft 3 in 10/09/24 10:20 Weight: 68.4 kg 10/09/24 10:20 Body Mass Index (BMI) 26.6 10/09/24 10:20 Respiratory Assessment Respiratory Assessment - spring salvage worker: Respiratory Tract Infection Hx - spring salvage worker Hx Respiratory Tract Infection No 10/09/24 00:03 STOP Sleep Apnea STOP Sleep Apnea - spring salvage worker: STOP Sleep Apnea - spring salvage worker Hx Hypertension Yes 10/08/24 10:36 Hx Sleep Apnea No 10/08/24 01:19 CPAP No 10/08/24 01:19 BIPAP No 10/08/24 01:19 Do you snore loudly (louder Yes 10/08/24 01:19 than talking or can be heard Do you often feel tired/ Yes 10/08/24 01:19 fatigued/ sleepy during daytime? Has anyone observed you stop Yes 10/08/24 01:19 breathing during sleep? STOP Results Positive 10/08/24 01:19 QUESTION #5 FULL TEXT : Do you snore loudly (louder than talking or can be heard through closed doors)? Tobacco Use History Tobacco Use History - spring salvage worker: Tobacco Use History - spring salvage worker Tobacco Use Smoking Status Never smoker 10/08/24 01:19 Hx Tobacco Use No 10/08/24 01:19 Years Smoking Packs Smoked per Day Smoking Cessation Date was within the last 15 years Hx Smoking Cessation Date Hx Smoking Cessation Counseling Hematologic Medial History Hematologic Hx - spring salvage worker: Hematologic Medical Hx - documentation clerk Hx of Blood Transfusion Yes 10/08/24 01:19 Hx of Transfusion in last 3 No 10/08/24 01:19 Months Date of Last Transfusion (if within last 3 months) Ever experience any problems No 10/08/24 01:19 with transfusion(s)? Specify any problems Hx of Preganancy in last 3 No 10/08/24 01:19 Months Nurse Filling Out Transfusion EYOUNG 10/08/24 01:19 & Questions: Date: 10/08/24 10/08/24 01:19 Time: 01:20 10/08/24 01:19 Patient unable to answer at this time (ie. confused, unrespo /Reproduction History /Reproductive History - spring salvage worker: /Reproductive Hx- spring salvage worker Hx Now No 10/09/24 00:03 Gestational Age (in weeks): EDC: Hx Hx Para Hx Section SAB No 10/09/24 00:03 Active Medications Active Medications: Current Medications Generic Name Dose Route Start Last Admin Trade Name Freq PRN Reason Stop Dose Admin Acetaminophen 650 mg 10/08/24 00:58 Acetaminophen 325 Mg Tablet PO Q4H PRN PRN Fever, pain 1-02/08 Al Hydroxide/Mg Hydroxide 30 ml 10/08/24 00:58 Mag Hydrox/Al Hydrox/Simeth 30 Ml Udc PO Q6H PRN PRN Gastric Burning Albuterol Sulfate 2.5 mg 10/08/24 00:58 Albuterol 2.5 Mg/3 Ml Vial.Neb. INHALATION Q2H PRN PRN Dyspnea, wheezing Amlodipine Besylate 10 mg 10/08/24 10:00 10/08/24 11:36 Amlodipine 10 Mg Tablet PO Not Given DAILY KAVYA Protocol Atorvastatin Calcium 40 mg 10/08/24 22:00 10/08/24 21:13 Atorvastatin Calcium 40 Mg Tablet PO 40 mg QHS KAVYA Administration Ferrous Sulfate 325 mg 10/08/24 12:00 10/08/24 11:36 Ferrous Sulfate 325 Mg Tablet PO Not Given DAILY@1200 [facility] Fluticasone Propionate 2 spray 10/08/24 03:58 Fluticasone 0.05% 1 [place] Nasal.Sry NASAL Q12H PRN PRN congestion Furosemide 40 mg 10/08/24 10:00 10/08/24 11:36 Furosemide 40 Mg Tablet PO Not Given DAILY KAVYA Protocol Gabapentin 100 mg 10/08/24 08:00 10/08/24 17:01 Gabapentin 100 Mg Capsule PO 100 mg TIDCM KAVYA Administration Glucagon 1 mg 10/08/24 00:58 Glucagon 1 Mg/Ml Syringe IM X1 PRN HYPOGLYCEMIA Protocol Guaifenesin 20 ml 10/08/24 00:58 Guaifenesin 10 Ml Udc (200mg/10ml) PO Q4H PRN PRN COUGH Hydralazine HCl 10 mg 10/08/24 00:58 Hydralazine 20 Mg/Ml Vial IV Q4H PRN PRN SBP > 160 Protocol Pantoprazole Sodium 80 mg/ 100 mls @ 10 mls/hr 10/08/24 00:58 10/09/24 09:49 Sodium Chloride CONT INF 10 mls/hr Q10H KAVYA Administration Dextrose 250 mls @ 0 mls/hr 10/08/24 00:58 Dextrose 10%-Water IV .Q0M PRN HYPOGLYCEMIA Protocol As Directed Sodium Chloride 250 mls @ 15 mls/hr 10/08/24 00:59 IV .[id number] PRN Saline Flush Sodium Chloride 250 mls @ 15 mls/hr 10/08/24 00:59 IV .[id number] PRN Additional IVPB Infusion Sodium Chloride 500 mls @ 15 mls/hr 10/08/24 00:59 10/08/24 08:10 IV 0 mls/hr PRN PRN Infusion Blood Transfusion Lactated Ringer's 1,000 mls @ 15 mls/hr 10/09/24 10:30 IV .Q48H [facility] Insulin Human Lispro 0 unit 10/08/24 06:00 10/09/24 06:31 Insulin Lispro 100 Unit/Ml Insuln.Pen SC Not Given Q6 [facility] Protocol Losartan Potassium 100 mg 10/08/24 10:00 10/08/24 11:35 Losartan Potassium 100 Mg Tablet PO Not Given DAILY [facility] Protocol Melatonin 3 mg 10/08/24 00:58 Melatonin 3 Mg Tablet PO QHS PRN PRN INSOMNIA Metoprolol Succinate 25 mg 10/09/24 10:00 Metoprolol(Xl)Succ 25 Mg Tablet PO BID [facility] Protocol Nitroglycerin 0.4 mg 10/08/24 00:58 Nitroglycerin (Inpatient Use) 0.4 Mg Tab.Subl SL Q5M PRN CARDIAC/CHEST PAIN Ondansetron HCl 4 mg 10/08/24 00:58 Ondansetron 4 Mg/2 Ml Vial IV Q8H PRN PRN NAUSEA/VOMITING Potassium Chloride 20 meq 10/08/24 08:00 10/08/24 11:35 Potassium Chloride Oral Tablet 20 Meq PO Not Given DAILYCOX BRANSON Prochlorperazine Edisylate 5 mg 10/08/24 00:58 Prochlorperazine 10 Mg/2 Ml Vial IV Q4H PRN PRN Breakthrough Nausea/Vomiting Sertraline HCl 25 mg 10/08/24 10:00 10/08/24 11:36 Sertraline 50 Mg Tablet PO Not Given DAILY [facility] Sodium Chloride 10 - 40 ml 10/08/24 00:59 10/08/24 21:10 0.9% Saline Lock 10 Ml Syringe IV 10 ml UD PRN Administration SALINE FLUSH Tolterodine Tartrate 2 mg 10/08/24 10:00 10/08/24 11:36 Tolterodine Tartrate 2 Mg Cap.Sa PO Not Given DAILY [facility] PFSH Medical History TIA (transient ischemic attack) [...] warfarin 2 mg tablet 2 mg PO MOWEFR afib 03/07/24 Unknown History furosemide 40 mg tablet 40 mg [...] PRN pain Unknown History fluticasone propionate 50 2 spray intranasal Q12H PRN 10/07/24 Unknown History mcg/actuation nasal congestion spray,suspension gabapentin 100 mg capsule 100 mg [...] never substance use type: does not use Review of Systems (Anesthesia) ROS Narrative System reviewed and no additional complaints, except as documented. 10/09/24 1023 <Electronically signed by Enrique Browne MD > Date _ Enrique Browne MD Cosigner Signature: Date CC: ~ Signed [facility] Work Phone: 1(696) 744-222806-10-2025 Progress note [facility] Medical Records Department [address] [place] [address] Progress Note 10/09/24 1130 MR#: [id number] Acct: [id number] Name: JAROD PRITCHARD Rep #:[id number] : 1940 83 From: Robb Friend DO PCP: Dr. Kierra Santiago MD Status:AD M IN Location: [place] [address] Progress Note Patient has been n.p.o. for upper endoscopy regarding acute blood loss anemia. Physical Exam Const alert and no apparent distress HEENT head/scalp atraumatic and moist oral mucous membranes Resp normal respiratory effort, no retractions, no use of accessory muscles and clearto auscultation bilaterally Cardio regular rate, regular rhythm, S1 normal heart sound and S2 normal heart sound GI normal to inspection, nondistended, normoactive bowel sounds, soft to palpation,non-tender and non-distended Neuro Sensorium / Orientation: awake and alert Psych affect normal Assessment & Plan Assessment/Plan (1) Gastric ulcer: PLAN: Assessment and Plan Assessment and Plan (1) GERD (gastroesophageal reflux disease): Status: Acute (2) Gastric ulcer: Status: Acute Plan: This is an 83 yo female pt here today for f/meeks after hospitalization for toe amputation. Pt was found to have a gastric ulcer after undergoing EGD for down trending hemoglobin. She will undergo repeat EGD to assess for healing of the gastric ulcer. -EGD Visit Charges Inpatient E&M: 37724 [facility] Hosp L3 10/09/24 1131 Robb Friend DO Cosigner Signature (if applicable): CC: ~ Signed [facility]06-10-2025 Progress note Author Roly Herrera [facility] Note Date/Time October 09, 2024 8:59 am [facility] Medical Records Department [address] [place] [address] Progress Note - Cardiology 10/09/24 0849 MR#: [id number] Acct: [id number] Name: JAROD PRITCHARD Rep #:[id number] : 1940 83 From: Roly Herrera MD PCP: Dr. Kierra Santiago MD Status:AD M IN Location: [place] [address]- 1 Subjective Subjective Patient sleeping soundly and was awoken and reports that she is doing fairly well. She denies any shortness of breath denies any lightheadedness syncope or near syncope. Her heart rate has been in the 50-55 bpm range. Hemoglobin is 8.0 this morning telemetry is difficult to see if this is either junctional or sinus bradycardia. Twelve-lead ECG done last evening appears to be sinus bradycardia. She is on metoprolol succinate 50 mg twice daily. Objective Data Vital Signs: Vital Signs Temp Pulse Resp BP Pulse Ox O2 Del Method O2 Flow Rate 98.4 F 62 16 125/69 H 95 Nasal Cannula 2 10/09/24 03:20 10/09/24 03:23 10/09/24 03:20 10/09/24 03:20 10/09/24 08:00 10/09/24 08:00 10/09/24 08:00 Oxygen Flow Rate (L/min) 2 Oxygen Delivery Method Nasal Cannula Weight: 150 lb 12.739 oz Body Mass Index (BMI) 26.6 Intake & Output: Intake and Output for Last 24 Hours 10/07/24 10/08/24 10/09/24 23:59 23:59 23:59 Intake Total 1487.58 / 1487.58 Output Total 1475 / 1475 Balance 12.58 / 12.58 Lab / Micro Data Attestation: I reviewed the patient's lab results. 10/09/24 05:15 10/09/24 05:15 Labs: Laboratory Results - last 24 hr 10/08/24 09:20: WBC 7.2, RBC 2.68 L, Hgb 8.2 L, Hct 25.2 L, MCV 94.0 D, MCH 30.6, MCHC 32.5, RDW Std Deviation 70.7 H, RDW Coeff of Kate 21.8 H, Plt Count 194, MPV 9.9, Immature Gran % (Auto) 0.600, Neut % (Auto) 73.2 H, Lymph % (Auto)15.5 L, [place] % (Auto) 9.5, Eos % (Auto) 0.8, Baso % (Auto) 0.4, Absolute Neuts (auto) 5.3, Absolute Lymphs (auto) 1.12, Nucleated RBC % 1.7, Polychromasia 1+, Hypochromasia 1+, Anisocytosis 1+, PT 22.5 H, INR 1.9, Sodium 140, Potassium 3.7, Chloride 106, Carbon Dioxide 19.3 L, Anion Gap 14, BUN 36 H, Creatinine 1.25 H, Estim Creat Clear Calc 31.37 L, Est GFR (MDRD) Non-Af 43 L, BUN/Creatinine Ratio 29.0 H, Glucose 121 H, Calcium 9.1, Total Bilirubin 0.55, AST 20, ALT 11, Alkaline Phosphatase 48, Total Protein 6.6, Albumin 3.9, Globulin 2.7, Albumin/Globulin Ratio 1.5, Triglycerides 359 H, Cholesterol 160, LDL Cholesterol, Calc 64, VLDL Cholesterol 72 H, HDL Cholesterol 25 L, Cholesterol/HDL Ratio 6.48 10/08/24 11:59: POC Glucose 143 H 10/08/24 17:00: POC Glucose 126 H 10/09/24 00:03: POC Glucose 103 10/09/24 05:15: WBC 6.6, RBC 2.57 L, Hgb 8.0 L, Hct 24.5 L, MCV 95.3, MCH 31.1, MCHC 32.7, RDW Std Deviation 76.2 H, RDW Coeff of Kate 22.8 H, Plt Count 192, MPV9.9, Immature Gran % (Auto) 0.300, Neut % (Auto) 70.7 H, Lymph % (Auto) 18.2 L, [place] % (Auto) 9.1, Eos % (Auto) 1.4, Baso % (Auto) 0.3, Absolute Neuts (auto) 4.7, Absolute Lymphs (auto) 1.20, Nucleated RBC % 0.6, Differential Comment SCANNED, Polychromasia 1+, Anisocytosis 2+, Microcytosis 1+, Macrocytosis 1+, PT22.2 H, INR 1.9, APTT 43.4 H, Sodium 141, Potassium 3.6, Chloride 108, Carbon Dioxide 20.2 L, Anion Gap 12, BUN 20 H, Creatinine 0.98, Estim Creat Clear Calc 39.67 L, Est GFR (MDRD) Non-Af 57 L, BUN/Creatinine Ratio 20.5 H, Glucose 132 H,Calcium 9.0 10/09/24 06:30: POC Glucose 121 H Rhythm Strip Rhythm Strip: Sinus Rhythm Rate: 55 Ectopy: PVC(s) Cardiology Labs/Tests 10/08/24 09:20: WBC 7.2, RBC 2.68 L, Hgb 8.2 L, Hct 25.2 L, MCV 94.0 D, MCH 30.6, MCHC 32.5, Plt Count 194, MPV 9.9, Immature Gran % (Auto) 0.600, Neut % (Auto) 73.2 H, Lymph % (Auto) 15.5 L, [place] % (Auto) 9.5, Eos % (Auto) 0.8, Baso % (Auto) 0.4, Absolute Neuts (auto) 5.3, Nucleated RBC % 1.7, PT 22.5 H, INR 1.9, Sodium 140, Potassium 3.7, Chloride 106, Carbon Dioxide 19.3 L, Anion Gap 14, BUN 36 H, Creatinine 1.25 H, Est GFR (MDRD) Non-Af 43 L, BUN/Creatinine Ratio 29.0 H, Glucose 121 H, Calcium 9.1, Total Bilirubin 0.55, Triglycerides 359 H, Cholesterol 160, VLDL Cholesterol 72 H, HDL Cholesterol 25 L, Cholesterol/HDL Ratio 6.48 10/09/24 05:15: WBC 6.6, RBC 2.57 L, Hgb 8.0 L, Hct 24.5 L, MCV 95.3, MCH 31.1, MCHC 32.7, Plt Count 192, MPV 9.9, Immature Gran % (Auto) 0.300, Neut % (Auto) 70.7 H, Lymph % (Auto) 18.2 L, [place] % (Auto) 9.1, Eos % (Auto) 1.4, Baso % (Auto) 0.3, Absolute Neuts (auto) 4.7, Nucleated RBC % 0.6, PT 22.2 H, INR 1.9, APTT 43.4 H, Sodium 141, Potassium 3.6, Chloride 108, Carbon Dioxide 20.2 L, Anion Gap 12, BUN 20 H, Creatinine 0.98, Est GFR (MDRD) Non-Af 57 L, BUN/Creatinine Ratio 20.5 H, Glucose 132 H, Calcium 9.0 Rhythm: EKG: ECHO: Stress Test: Cardiac Cath: PCI: CT Surgery: Holter monitor: EPS: PPM: CXR: Chest CT Scan: Physical Exam Const alert and oriented x3 HEENT normocephalic Eyes EOMs intact bilaterally Neck no JVD Resp normal respiratory effort and clear to auscultation bilaterally Cardio Cardio Narrative: Distant heart tones Rate: bradycardia Rhythm: regular rhythm Heart Sounds: S1 normal and S2 normal; Negative for click, gallop or murmur Extremity no pedal edema Neuro Neuro Narrative: Alert and oriented x 3 Psych mental status grossly normal Assessment & Plan Assessment/Plan (1) GI bleed: QUALIFIERS: GI bleed type/associated pathology: melena Qualified Code(s): K92.1 - Melena PLAN: Hemoglobin is 8.0 this morning the patient is being evaluated Dr. Friend. (2) Hypertension: QUALIFIERS: Hypertension type: primary hypertension Qualified Code(s): I10 - Essential (primary) hypertension PLAN: Patient's blood pressure is well-controlled on her current medical therapy. (3) Factor V Leiden: PLAN: Patient carries a history of factor V Leiden deficiency. She has been on long-term Coumadin to treat this. Currently this is being held due to her recurrent GI bleeding. (4) Atrial fibrillation: QUALIFIERS: Atrial fibrillation type: paroxysmal Qualified Code(s): I48.0 - Paroxysmal atrial fibrillation PLAN: Patient's rhythm appears to be sinus bradycardia at 55 bpm. This is from an ECG done at 0400 hrs. this morning. Her telemetry is very difficult to see Pwaves but this is a regular rhythm at 55-60 bpm. I would recommend that we decrease her metoprolol succinate to 25 mg twice daily. She is not on oral anticoagulation therapy at this time given her ongoing GI bleeding issues. (5) (HFpEF) heart failure with preserved ejection fraction: QUALIFIERS: Heart failure chronicity: chronic Qualified Code(s): I50.32 - Chronic diastolic (congestive) heart failure PLAN: Patient appears to be adequately compensated on today's exam. She does have a known history of an EF of 63% with mild aortic stenosis. PLAN: Plan 1. Will decrease metoprolol succinate to 25 mg twice daily given the patient's bradycardia. 2. Will continue to follow along as you directed. 3. From a cardiovascular standpoint the patient can proceed with GI evaluation as indicated. Charges/Coding Visit Charges Inpatient E&M: 86610 Subs Hosp L2 10/09/24 0859 <Electronically signed by Roly Herrera MD> Cosigner Signature (if applicable): CC: ~ Signed [facility] Work Phone: [phone] 800-850206-10-2025 Consult note [facility] Medical Records Department [address] [place] [address] Pre-Anesthesia Evaluation 10/09/24 1022 MR#: [id number] Acct: [id number] Name: JAROD PRITCHARD Rep #:[id number] : 1940 83 From: Enrique Browne MD PCP: Dr. Kierra Santiago MD Status:AD M IN Y Race: C Location: [place] [address] 5-1 ASA Classification* ASA Classification ASA Classification: 3 and E Assessment & Plan Anesthesia* Anesthesia Assessment Anesthesia Assessment: Discussed sedation and/or anesthesia options, risks, benefits, and alternatives with patient/parents/legal guardian/POA. Questions invited. The patient/parents/legal guardian/POA seems to understand and agrees to proceedwith anesthesia plan. Reviewed the physical assessment, medical history, allergy history and patient home medications list prior to surgery/procedure/anesthetic and documented any changes. Performed airway and anesthesia risk assessments. Anesthesia Type Anesthesia Type: MAC Anesthesia Focused Assessment* Temperature: 98.4 F Pulse Rate: 62 Blood Pressure: 125/69 Respiratory Rate: 16 Pulse Ox: 95 Oxygen Flow Rate (L/min): 2 Airway Assessment Mouth opens: >3 cm Mallampati Score: II Comment: Echocardiogram 12/31/2023. EF 35 to 40%. Labs Anesthesia Preop lab: CBC WBC 6.6 K/mm3 (4.4-11.0) 10/09/24 05:15 10/09/24 RBC 2.57 M/mm3 (4.2-5.4) L 10/09/24 05:15 10/09/24 Hgb 8.0 g/dL (12.0-15.0) L 10/09/24 05:15 10/09/24 Hct 24.5 % (37-47) L 10/09/24 05:15 10/09/24 Plt Count 192 K/mm3 (150-450) 10/09/24 05:15 10/09/24 CHEMISTRY Potassium 3.6 mmol/L (3.3-5.1) 10/09/24 05:15 10/09/24 Sodium 141 mmol/L (133-145) 10/09/24 05:15 10/09/24 Magnesium 2.0 mg/dL (1.5-2.2) 10/07/24 22:22 10/07/24 Phosphorus 4.1 mg/dL (2.5-4.9) 03/08/24 05:15 03/08/24 BUN 20 mg/dL (4-19) H 10/09/24 05:15 10/09/24 Creatinine 0.98 mg/dL (0.70-1.20) 10/09/24 05:15 10/09/24 Glucose 132 mg/dL (70-99) H 10/09/24 05:15 10/09/24 POC Glucose 121 mg/dL (74-106) H 10/09/24 06:30 10/09/24 TSH 5.590 uIU/mL (0.358-3.740) H 03/08/24 05:15 COAG PT 22.2 SECONDS (11.7-14.9) H 10/09/24 05:15 09/30 Pre-Assessment Diagnosis/Proposed Procedure Planned Operative Procedure(s): EGD. 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 When Was Last Pacemaker Check QUESTION #4 FULL TEXT: You/Your Family Experience fever (hyperthermia) with Anesthesia Last Oral Intake Last Oral intake: Last Oral Intake NPO since 00:00 10/09/24 10:20 Meds taken in AM with sips of water? Meds patient instructed to take am of surgery PONV PONV - spring salvage worker: PONV - spring salvage worker Female HX of Motion Sickness HX of N/V After Surgery Non-Smoker Duration of Surgery greater than 60 minutes Number of Risk Factors PONV Score Height & Weight Height & Weight: Anesthesia: Height & Weight Height 5 ft 3 in 10/09/24 10:20 Weight: 68.4 kg 10/09/24 10:20 Body Mass Index (BMI) 26.6 10/09/24 10:20 Respiratory Assessment Respiratory Assessment - spring salvage worker: Respiratory Tract Infection Hx - spring salvage worker Hx Respiratory Tract Infection No 10/09/24 00:03 STOP Sleep Apnea STOP Sleep Apnea - spring salvage worker: STOP Sleep Apnea - spring salvage worker Hx Hypertension Yes 10/08/24 10:36 Hx Sleep Apnea No 10/08/24 01:19 CPAP No 10/08/24 01:19 BIPAP No 10/08/24 01:19 Do you snore loudly (louder Yes 10/08/24 01:19 than talking or can be heard Do you often feel tired/ Yes 10/08/24 01:19 fatigued/ sleepy during daytime? Has anyone observed you stop Yes 10/08/24 01:19 breathing during sleep? STOP Results Positive 10/08/24 01:19 QUESTION #5 FULL TEXT : Do you snore loudly (louder than talking or can be heard through closeddoors)? Tobacco Use History Tobacco Use History - spring salvage worker: Tobacco Use History - spring salvage worker Tobacco Use Smoking Status Never smoker 10/08/24 01:19 Hx Tobacco Use No 10/08/24 01:19 Years Smoking Packs Smoked per Day Smoking Cessation Date was within the last 15 years Hx Smoking Cessation Date Hx Smoking Cessation Counseling Hematologic Medial History Hematologic Hx - spring salvage worker: Hematologic Medical Hx - documentation clerk Hx of Blood Transfusion Yes 10/08/24 01:19 Hx of Transfusion in last 3 No 10/08/24 01:19 Months Date of Last Transfusion (if within last 3 months) Ever experience any problems No 10/08/24 01:19 with transfusion(s)? Specify any problems Hx of Preganancy in last 3 No 10/08/24 01:19 Months Nurse Filling Out Transfusion EYOUNG 10/08/24 01:19 & Questions: Date: 10/08/24 10/08/24 01:19 Time: 01:20 10/08/24 01:19 Patient unable to answer at this time (ie. confused, unrespo /Reproduction History /Reproductive History - spring salvage worker: /Reproductive Hx- spring salvage worker Hx Now No 10/09/24 00:03 Gestational Age (in weeks): EDC: Hx Hx Para Hx Section SAB No 10/09/24 00:03 Active Medications Active Medications: Current Medications Generic Name Dose Route Start Last Admin Trade Name Freq PRN Reason Stop Dose Admin Acetaminophen 650 mg 10/08/24 00:58 Acetaminophen 325 Mg Tablet PO Q4H PRN PRN Fever, pain -02/08 Al Hydroxide/Mg Hydroxide 30 ml 10/08/24 00:58 Mag Hydrox/Al Hydrox/Simeth 30 Ml Udc PO Q6H PRN PRN Gastric Burning Albuterol Sulfate 2.5 mg 10/08/24 00:58 Albuterol 2.5 Mg/3 Ml Vial.Neb. INHALATION Q2H PRN PRN Dyspnea, wheezing Amlodipine Besylate 10 mg 10/08/24 10:00 10/08/24 11:36 Amlodipine 10 Mg Tablet PO Not Given DAILY KAVYA Protocol Atorvastatin Calcium 40 mg 10/08/24 22:00 10/08/24 21:13 Atorvastatin Calcium 40 Mg Tablet PO 40 mg QHS KAVYA Administration Ferrous Sulfate 325 mg 10/08/24 12:00 10/08/24 11:36 Ferrous Sulfate 325 Mg Tablet PO Not Given DAILY@1200 [facility] Fluticasone Propionate 2 spray 10/08/24 03:58 Fluticasone 0.05% 1 [place] Nasal.Sry NASAL Q12H PRN PRN congestion Furosemide 40 mg 10/08/24 10:00 10/08/24 11:36 Furosemide 40 Mg Tablet PO Not Given DAILY [facility] Protocol Gabapentin 100 mg 10/08/24 08:00 10/08/24 17:01 Gabapentin 100 Mg Capsule PO 100 mg TIDCM KAVYA Administration Glucagon 1 mg 10/08/24 00:58 Glucagon 1 Mg/Ml Syringe IM X1 PRN HYPOGLYCEMIA Protocol Guaifenesin 20 ml 10/08/24 00:58 Guaifenesin 10 Ml Udc (200mg/10ml) PO Q4H PRN PRN COUGH Hydralazine HCl 10 mg 10/08/24 00:58 Hydralazine 20 Mg/Ml Vial IV Q4H PRN PRN SBP > 160 Protocol Pantoprazole Sodium 80 mg/ 100 mls @ 10 mls/hr 10/08/24 00:58 10/09/24 09:49 Sodium Chloride CONT INF 10 mls/hr Q10H K[facility]YA Administration Dextrose 250 mls @ 0 mls/hr 10/08/24 00:58 Dextrose 10%-Water IV .Q0M PRN HYPOGLYCEMIA Protocol As Directed Sodium Chloride 250 mls @ 15 mls/hr 10/08/24 00:59 IV .[id number] PRN Saline Flush Sodium Chloride 250 mls @ 15 mls/hr 10/08/24 00:59 IV .[id number] PRN Additional IVPB Infusion Sodium Chloride 500 mls @ 15 mls/hr 10/08/24 00:59 10/08/24 08:10 IV 0 mls/hr PRN PRN Infusion Blood Transfusion Lactated Ringer's 1,000 mls @ 15 mls/hr 10/09/24 10:30 IV .Q48H [facility] Insulin Human Lispro 0 unit 10/08/24 06:00 10/09/24 06:31 Insulin Lispro 100 Unit/Ml Insuln.Pen SC Not Given Q6 [facility] Protocol Losartan Potassium 100 mg 10/08/24 10:00 10/08/24 11:35 Losartan Potassium 100 Mg Tablet PO Not Given DAILY [facility] Protocol Melatonin 3 mg 10/08/24 00:58 Melatonin 3 Mg Tablet PO QHS PRN PRN INSOMNIA Metoprolol Succinate 25 mg 10/09/24 10:00 Metoprolol(Xl)Succ 25 Mg Tablet PO BID [facility] Protocol Nitroglycerin 0.4 mg 10/08/24 00:58 Nitroglycerin (Inpatient Use) 0.4 Mg Tab.Subl SL Q5M PRN CARDIAC/CHEST PAIN Ondansetron HCl 4 mg 10/08/24 00:58 Ondansetron 4 Mg/2 Ml Vial IV Q8H PRN PRN NAUSEA/VOMITING Potassium Chloride 20 meq 10/08/24 08:00 10/08/24 11:35 Potassium Chloride Oral Tablet 20 Meq PO Not Given DAILYCOX BRANSON Prochlorperazine Edisylate 5 mg 10/08/24 00:58 Prochlorperazine 10 Mg/2 Ml Vial IV Q4H PRN PRN Breakthrough Nausea/Vomiting Sertraline HCl 25 mg 10/08/24 10:00 10/08/24 11:36 Sertraline 50 Mg Tablet PO Not Given DAILY [facility] Sodium Chloride 10 - 40 ml 10/08/24 00:59 10/08/24 21:10 0.9% Saline Lock 10 Ml Syringe IV 10 ml UD PRN Administration SALINE FLUSH Tolterodine Tartrate 2 mg 10/08/24 10:00 10/08/24 11:36 Tolterodine Tartrate 2 Mg Cap.Sa PO Not Given DAILY [facility] PFSH Medical History TIA (transient ischemic attack) [...] warfarin 2 mg tablet 2 mg PO MOWEFR afib 03/07/24 Unknown History furosemide 40 mg tablet 40 mg [...] PRN pain Unknown History fluticasone propionate 50 2 spray intranasal Q12H PRN 10/07/24 Unknown History mcg/actuation nasal congestion spray,suspension gabapentin 100 mg capsule 100 mg [...] never substance use type: does not use Review of Systems (Anesthesia) ROS Narrative System reviewed and no additional complaints, except as documented. 10/09/24 1023 > Date _ Enrique Browne MD Cosigner Signature: Date CC: ~ Signed [facility]06-10-2025 Progress note [facility] Medical Records Department [address] [place] [address] Progress Note - Cardiology 10/09/24 0849 MR#: [id number] Acct: [id number] Name: JAROD PRITCHARD Rep #:[id number] : 1940 83 From: Roly Herrera MD PCP: Dr. Kierra Santiago MD Status:AD M IN Location: [place] [address]- Subjective Subjective Patient sleeping soundly and was awoken and reports that she is doing fairly well. She denies any shortness of breath denies any lightheadedness syncope or near syncope. Her heart rate has been in the 50-55 bpm range. Hemoglobin is 8.0 this morning telemetry is difficult to see if this is either junctional or sinus bradycardia. Twelve-lead ECG done last evening appears to be sinus bradycardia. She is on metoprolol succinate 50 mg twice daily. Objective Data Vital Signs: Vital Signs Temp Pulse Resp BP Pulse Ox O2 Del Method O2 Flow Rate 98.4 F 62 16 125/69 H 95 Nasal Cannula 2 10/09/24 03:20 10/09/24 03:23 10/09/24 03:20 10/09/24 03:20 10/09/24 08:00 10/09/24 08:00 10/09/24 08:00 Oxygen Flow Rate (L/min) 2 Oxygen Delivery Method Nasal Cannula Weight: 150 lb 12.739 oz Body Mass Index (BMI) 26.6 Intake & Output: Intake and Output for Last 24 Hours 10/07/24 10/08/24 10/09/24 23:59 23:59 23:59 Intake Total 1487.58 / 1487.58 Output Total 1475 / 1475 Balance 12.58 / 12.58 Lab / Micro Data Attestation: I reviewed the patient's lab results. 10/09/24 05:15 10/09/24 05:15 Labs: Laboratory Results - last 24 hr 10/08/24 09:20: WBC 7.2, RBC 2.68 L, Hgb 8.2 L, Hct 25.2 L, MCV 94.0 D, MCH 30.6, MCHC 32.5, RDW Std Deviation 70.7 H, RDW Coeff of Kate 21.8 H, Plt Count 194, MPV 9.9, Immature Gran % (Auto) 0.600, Neut % (Auto) 73.2 H, Lymph % (Auto)15.5 L, [place] % (Auto) 9.5, Eos % (Auto) 0.8, Baso % (Auto) 0.4, Absolute Neuts (auto) 5.3, Absolute Lymphs (auto) 1.12, Nucleated RBC % 1.7, Polychromasia 1+, Hypochromasia 1+, Anisocytosis 1+, PT 22.5 H, INR 1.9, Sodium 140, Potassium 3.7, Chloride 106, Carbon Dioxide 19.3 L, Anion Gap 14, BUN 36 H, Creatinine 1.25 H, Estim Creat Clear Calc 31.37 L, Est GFR (MDRD) Non-Af 43 L, BUN/Creatinine Ratio 29.0 H, Glucose 121 H, Calcium 9.1, Total Bilirubin 0.55, AST 20, ALT 11, Alkaline Phosphatase 48, Total Protein 6.6, Albumin 3.9, Globulin 2.7, Albumin/Globulin Ratio 1.5, Triglycerides 359 H, Cholesterol 160, LDL Cholesterol, Calc 64, VLDL Cholesterol 72 H, HDLCholesterol 25 L, Cholesterol/HDL Ratio 6.48 10/08/24 11:59: POC Glucose 143 H 10/08/24 17:00: POC Glucose 126 H 10/09/24 00:03: POC Glucose 103 10/09/24 05:15: WBC 6.6, RBC 2.57 L, Hgb 8.0 L, Hct 24.5 L, MCV 95.3, MCH 31.1, MCHC 32.7, RDW Std Deviation 76.2 H, RDW Coeff of Kate 22.8 H, Plt Count 192, MPV9.9, Immature Gran % (Auto) 0.300, Neut% (Auto) 70.7 H, Lymph % (Auto) 18.2 L, [place] % (Auto) 9.1, Eos % (Auto) 1.4, Baso % (Auto) 0.3, Absolute Neuts (auto) 4.7, Absolute Lymphs (auto) 1.20, Nucleated RBC % 0.6, Differential Comment SCANNED, Polychromasia 1+, Anisocytosis 2+, Microcytosis 1+, Macrocytosis 1+, PT22.2 H, INR 1.9, APTT 43.4 H, Sodium 141, Potassium 3.6, Chloride 108, Carbon Dioxide 20.2 L, Anion Gap 12, BUN 20 H, Creatinine 0.98, Estim Creat Clear Calc 39.67 L, Est GFR (MDRD) Non-Af 57 L, BUN/Creatinine Ratio 20.5 H, Glucose 132 H,Calcium 9.0 10/09/24 06:30: POC Glucose 121 H Rhythm Strip Rhythm Strip: Sinus Rhythm Rate: 55 Ectopy: PVC(s) Cardiology Labs/Tests 10/08/24 09:20: WBC 7.2, RBC 2.68 L, Hgb 8.2 L, Hct 25.2 L, MCV 94.0 D, MCH 30.6, MCHC 32.5, Plt Count 194, MPV 9.9, Immature Gran % (Auto) 0.600, Neut % (Auto) 73.2 H, Lymph % (Auto) 15.5 L, [place] % (Auto) 9.5, Eos % (Auto) 0.8, Baso % (Auto) 0.4, Absolute Neuts (auto) 5.3, Nucleated RBC % 1.7, PT 22.5 H, INR 1.9, Sodium 140, Potassium 3.7, Chloride 106, Carbon Dioxide 19.3 L, Anion Gap 14, BUN 36 H, Creatinine 1.25 H, Est GFR (MDRD) Non-Af 43 L, BUN/Creatinine Ratio 29.0 H, Glucose 121 H, Calcium 9.1, Total Bilirubin 0.55, Triglycerides 359 H, Cholesterol 160, VLDL Cholesterol 72 H, HDL Cholesterol 25 L, Cholesterol/HDL Ratio 6.48 10/09/24 05:15: WBC 6.6, RBC 2.57 L, Hgb 8.0 L, Hct 24.5 L, MCV 95.3, MCH 31.1, MCHC 32.7, Plt Count 192, MPV 9.9, Immature Gran % (Auto) 0.300, Neut % (Auto) 70.7 H, Lymph % (Auto) 18.2 L, [place] % (Auto) 9.1, Eos % (Auto) 1.4, Baso % (Auto) 0.3, Absolute Neuts (auto) 4.7, Nucleated RBC % 0.6, PT 22.2 H, INR 1.9, APTT 43.4 H, Sodium 141, Potassium 3.6, Chloride 108, Carbon Dioxide 20.2 L, Anion Gap 12, BUN 20 H, Creatinine 0.98, Est GFR (MDRD) Non-Af 57 L, BUN/Creatinine Ratio 20.5 H, Glucose 132 H, Calcium 9.0 Rhythm: EKG: ECHO: Stress Test: Cardiac Cath: PCI: CT Surgery: Holter monitor: EPS: PPM: CXR: Chest CT Scan: Physical Exam Const alert and oriented x3 HEENT normocephalic Eyes EOMs intact bilaterally Neck no JVD Resp normal respiratory effort and clear to auscultation bilaterally Cardio Cardio Narrative: Distant heart tones Rate: bradycardia Rhythm: regular rhythm Heart Sounds: S1 normal and S2 normal; Negative for click, gallop or murmur Extremity no pedal edema Neuro Neuro Narrative: Alert and oriented x 3 Psych mental status grossly normal Assessment & Plan Assessment/Plan (1) GI bleed: QUALIFIERS: GI bleed type/associated pathology: melena Qualified Code(s): K92.1 - Melena PLAN: Hemoglobin is 8.0 this morning the patient is being evaluated Dr. Giron. (2) Hypertension: QUALIFIERS: Hypertension type: primary hypertension Qualified Code(s): I10 - Essential (primary) hypertension PLAN: Patient's blood pressure is well-controlled on her current medical therapy. (3) Factor V Leiden: PLAN: Patient carries a history of factor V Leiden deficiency. She has been on long-term Coumadin to treat this. Currently this is being held due to her recurrent GI bleeding. (4) Atrial fibrillation: QUALIFIERS: Atrial fibrillation type: paroxysmal Qualified Code(s): I48.0 - Paroxysmal atrial fibrillation PLAN: Patient's rhythm appears to be sinus bradycardia at 55 bpm. This is from an ECG done at 0400 hrs. this morning. Her telemetry is very difficult to see Pwaves but this is a regular rhythm at 55-60 bpm. I would recommend that we decrease her metoprolol succinate to 25 mg twice daily. She is not on oral anticoagulation therapy at this time given her ongoing GI bleeding issues. (5) (HFpEF) heart failure with preserved ejection fraction: QUALIFIERS: Heart failure chronicity: chronic Qualified Code(s): I50.32 - Chronic diastolic (congestive) heart failure PLAN: Patient appears to be adequately compensated on today's exam. She does have a known history of an EF of 63% with mild aortic stenosis. PLAN: Plan 1. Will decrease metoprolol succinate to 25 mg twice daily given the patient's bradycardia. 2. Will continue to follow along as you directed. 3. From a cardiovascular standpoint the patient can proceed with GI evaluation as indicated. Charges/Coding Visit Charges Inpatient E&M: 50426 Subs Hosp L2 10/09/24 0859 Cosigner Signature (if applicable): CC: ~ Signed [facility]06-09-2025 Progress note Author Shaan Monae [facility] Note Date/Time October 08, 2024 4:03p m [facility] Medical Records Department [address] [place] [address] Progress Note - Hospitalist 10/08/24 1557 MR#: [id number] Acct: [id number] Name: JAROD PRITCHARD Rep #:[id number] : 1940 83 From: Shaan Monae DO PCP: Dr. Kierra Santiago MD Status:AD M IN Location: [place] [address] Reason for Visit Reason for Visit: Diagnoses Acute posthemorrhagic anemia (10/07/24) Activated protein C resistance (10/07/24) Essential (primary) hypertension (10/07/24) Nonrheumatic aortic (valve) stenosis (10/07/24) Paroxysmal atrial fibrillation (10/07/24) Unspecified systolic (congestive) heart failure (10/07/24) Gastrointestinal hemorrhage, unspecified (10/07/24) Chest pain, unspecified (10/07/24) Subjective Subjective Feeling well. No new complaints. Objective Data Objective Data Vital Signs: Vital Signs Temp Pulse Resp BP Pulse Ox O2 Del Method O2 Flow Rate 36.7 C 60 18 127/57 H 97 Nasal Cannula 3 10/08/24 12:00 10/08/24 12:00 10/08/24 12:00 10/08/24 12:00 10/08/24 12:00 10/08/24 12:00 10/08/24 12:00 Oxygen Flow Rate (L/min) 3 Oxygen Delivery Method Nasal Cannula Weight: 69.7 kg Body Mass Index (BMI) 27.2 Intake & Output: Intake and Output for Last 24 Hours 10/06/24 10/07/24 10/08/24 23:59 23:59 23:59 Intake Total 1387.58 / 1387.58 Output Total 1475 / 1475 Balance -87.42 / -87.42 Lab / Micro Data 10/08/24 09:20 10/08/24 09:20 Labs: Laboratory Results - last 24 hr 10/07/24 22:22: WBC 7.4, RBC 1.93 L, Hgb 6.5 L, Hct 20.6 L, MCV 106.7 H, MCH 33.7 H, MCHC 31.6 L, RDW Std Deviation 72.3 H, RDW Coeff of Kate 19.2 H, Plt Count 184, MPV 11.5, Immature Gran % (Auto) 0.400, Neut % (Auto) 71.8 H, Lymph %(Auto) 18.2 L, [place] % (Auto) 8.9, Eos % (Auto) 0.4, [...] 24.9 H, Glucose 140 H, Calcium 8.6, Magnesium 2.0, Troponin T High Sens 46 H, NT pro BNP II 2304 H 10/07/24 23:21: Blood Type A POSITIVE, Antibody Screen NEGATIVE, Crossmatch See Detail 10/08/24 00:15: Troponin T Hi Sens 2 Hr 42 H 10/08/24 02:37: Troponin T Hi Sens 4Hr 50 H 10/08/24 05:55: PT 22.3 H, INR 1.9 10/08/24 06:04: POC Glucose 96 10/08/24 09:20: WBC 7.2, RBC 2.68 L, Hgb 8.2 L, Hct 25.2 L, MCV 94.0 D, MCH 30.6, MCHC 32.5, RDW Std Deviation 70.7 H, RDW Coeff of Kate 21.8 H, Plt Count 194, MPV 9.9, Immature Gran % (Auto) 0.600, Neut % (Auto) 73.2 H, Lymph % (Auto)15.5 L, [place] % (Auto) 9.5, Eos % (Auto) 0.8, Baso % (Auto) 0.4, Absolute Neuts (auto) 5.3, Absolute Lymphs (auto) 1.12, Nucleated RBC % 1.7, Polychromasia 1+, Hypochromasia 1+, Anisocytosis 1+, PT 22.5 H, INR 1.9, Sodium 140, Potassium 3.7, Chloride 106, Carbon Dioxide 19.3 L, Anion Gap 14, BUN 36 H, Creatinine 1.25 H, Estim Creat Clear Calc 31.37 L, Est GFR (MDRD) Non-Af 43 L, BUN/Creatinine Ratio 29.0 H, Glucose 121 H, Calcium 9.1, Total Bilirubin 0.55, AST 20, ALT 11, Alkaline Phosphatase 48, Total Protein 6.6, Albumin 3.9, Globulin 2.7, Albumin/Globulin Ratio 1.5, Triglycerides 359 H, Cholesterol 160, LDL Cholesterol, Calc 64, VLDL Cholesterol 72 H, HDL Cholesterol 25 L, Cholesterol/HDL Ratio 6.48 10/08/24 11:59: POC Glucose 143 H Micro: Microbiology 10/07/24 22:53 Stool Stool Occult Blood (LATANYA) - Final Occult Blood Positive Radiography Diagnostic Testing: Radiology Impression Chest X-Ray 10/07/24 22:40 IMPRESSION: Trace left pleural effusion and mild cardiomegaly. Reading Location: [facility] Rhythm Strip Rhythm Strip: Sinus Rhythm Rate: 65 Ectopy: None Physical Exam Const alert and no apparent distress HEENT head/scalp atraumatic and moist oral mucous membranes Resp normal respiratory effort, no retractions, no use of accessory muscles and clearto auscultation bilaterally Cardio regular rate, regular rhythm, S1 normal heart sound and S2 normal heart sound GI normal to inspection, nondistended, normoactive bowel sounds, soft to palpation,non-tender and non-distended Neuro Sensorium / Orientation: awake and alert Psych affect normal Assessment & Plan Assessment/Plan (1) ABLA (acute blood loss anemia): PLAN: Hg down to 6.5, now up to 8.2. Continue to monitor. 2/2 GI complicated by anticoagulation Warfarin held. (2) GI bleed: PLAN: Unclear source. on pantoprazole gtt PLAN: Plan Chronic conditions: * HFpEF: on furomseide, furosemide, losartan * CAD: clopidogrel held given GIB * pAfib: warfarin held given GIB VTE prophylaxis: SCDs. Charges/Coding Visit Charges Inpatient E&M: 73539 Subs Hosp L2 10/08/24 1603 <Electronically signed by Shaan Monae DO> Cosigner Signature (if applicable): CC: ~ Signed [facility] Work Phone: [phone] 340-153506-09-2025 Progress note [facility] Medical Records Department [address] [place] [address] Progress Note - Hospitalist 10/08/24 1557 MR#: [id number] Acct: [id number] Name: JAROD PRITCHARD Rep #:[id number] : 1940 83 From: Shaan Monae DO PCP: Dr. Kierra Santiago MD Status:AD M IN Location: [place] [address]- Reason for Visit Reason for Visit: Diagnoses Acute posthemorrhagic anemia (10/07/24) Activated protein C resistance (10/07/24) Essential (primary) hypertension (10/07/24) Nonrheumatic aortic (valve) stenosis (10/07/24) Paroxysmal atrial fibrillation (10/07/24) Unspecified systolic (congestive) heart failure (10/07/24) Gastrointestinal hemorrhage, unspecified (10/07/24) Chest pain, unspecified (10/07/24) Subjective Subjective Feeling well. No new complaints. Objective Data Objective Data Vital Signs: Vital Signs Temp Pulse Resp BP Pulse Ox O2 Del Method O2 Flow Rate 36.7 C 60 18 127/57 H 97 Nasal Cannula 3 10/08/24 12:00 10/08/24 12:00 10/08/24 12:00 10/08/24 12:00 10/08/24 12:00 10/08/24 12:00 10/08/24 12:00 Oxygen Flow Rate (L/min) 3 Oxygen Delivery Method Nasal Cannula Weight: 69.7 kg Body Mass Index (BMI) 27.2 Intake & Output: Intake and Output for Last 24 Hours 10/06/24 10/07/24 10/08/24 23:59 23:59 23:59 Intake Total 1387.58 / 1387.58 Output Total 1475 / 1475 Balance -87.42 / -87.42 Lab / Micro Data 10/08/24 09:20 10/08/24 09:20 Labs: Laboratory Results - last 24 hr 10/07/24 22:22: WBC 7.4, RBC 1.93 L, Hgb 6.5 L, Hct 20.6 L, MCV 106.7 H, MCH 33.7 H, MCHC 31.6 L, RDW Std Deviation 72.3 H, RDW Coeff of Kate 19.2 H, Plt Count 184, MPV 11.5, Immature Gran % (Auto) 0.400, Neut % (Auto) 71.8 H, Lymph %(Auto) 18.2 L, [place] % (Auto) 8.9, Eos % (Auto) 0.4, Baso % (Auto) 0.3, Absolute Neuts (auto) 5.3, Absolute Lymphs (auto) 1.35, Nucleated RBC % 1.5, DifferentialComment SCANNED, Platelet Estimate ADEQUATE, Polychromasia 2+, Anisocytosis 2+, PT 29.4 H, INR 2.7, [id number], Potassium 3.9, Chloride 102, Carbon Dioxide 16.2L, Anion Gap 16 H, BUN 36 H, Creatinine 1.46 H, Estim Creat Clear Calc 26.99 L, Est GFR (MDRD) Non-Af 35 L, BUN/Creatinine Ratio 24.9 H, Glucose 140 H, Calcium 8.6, Magnesium 2.0, Troponin T High Sens 46 H, NT pro BNP II 2304 H 10/07/24 23:21: Blood Type A POSITIVE, Antibody Screen NEGATIVE, Crossmatch See Detail 10/08/24 00:15: Troponin T Hi Sens 2 Hr 42 H 10/08/24 02:37: Troponin T Hi Sens 4Hr 50 H 10/08/24 05:55: PT 22.3 H, INR 1.9 10/08/24 06:04: POC Glucose 96 10/08/24 09:20: WBC 7.2, RBC 2.68 L, Hgb 8.2 L, Hct 25.2 L, MCV 94.0 D, MCH 30.6, MCHC 32.5, RDW Std Deviation 70.7 H, RDW Coeff of Kate 21.8 H, Plt Count 194, MPV 9.9, Immature Gran % (Auto) 0.600, Neut % (Auto) 73.2 H, Lymph % (Auto)15.5 L, [place] % (Auto) 9.5, Eos % (Auto) 0.8, Baso % (Auto) 0.4, Absolute Neuts (auto) 5.3, Absolute Lymphs (auto) 1.12, Nucleated RBC % 1.7, Polychromasia 1+, Hypochromasia 1+, Anisocytosis 1+, PT 22.5 H, INR 1.9, Sodium 140, Potassium 3.7, Chloride 106, Carbon Dioxide 19.3 L, Anion Gap 14, BUN 36 H, Creatinine 1.25 H, Estim Creat Clear Calc 31.37 L, Est GFR (MDRD) Non-Af 43 L, BUN/Creatinine Ratio 29.0 H, Glucose 121 H, Calcium 9.1, Total Bilirubin 0.55, AST 20, ALT 11, Alkaline Phosphatase 48, Total Protein 6.6, Albumin 3.9, Globulin 2.7, Albumin/Globulin Ratio 1.5, Triglycerides 359 H, Cholesterol 160, LDL Cholesterol, Calc 64, VLDL Cholesterol 72 H, HDLCholesterol 25 L, Cholesterol/HDL Ratio 6.48 10/08/24 11:59: POC Glucose 143 H Micro: Microbiology 10/07/24 22:53 Stool Stool Occult Blood (LATANYA) - Final Occult Blood Positive Radiography Diagnostic Testing: Radiology Impression Chest X-Ray 10/07/24 22:40 IMPRESSION: Trace left pleural effusion and mild cardiomegaly. Reading Location: [facility] Rhythm Strip Rhythm Strip: Sinus Rhythm Rate: 65 Ectopy: None Physical Exam Const alert and no apparent distress HEENT head/scalp atraumatic and moist oral mucous membranes Resp normal respiratory effort, no retractions, no use of accessory muscles and clearto auscultation bilaterally Cardio regular rate, regular rhythm, S1 normal heart sound and S2 normal heart sound GI normal to inspection, nondistended, normoactive bowel sounds, soft to palpation,non-tender and non-distended Neuro Sensorium / Orientation: awake and alert Psych affect normal Assessment & Plan Assessment/Plan (1) ABLA (acute blood loss anemia): PLAN: Hg down to 6.5, now up to 8.2. Continue to monitor. 2/2 GI complicated by anticoagulation Warfarin held. (2) GI bleed: PLAN: Unclear source. on pantoprazole gtt PLAN: Plan Chronic conditions: * HFpEF: on furomseide, furosemide, losartan * CAD: clopidogrel held given GIB * pAfib: warfarin held given GIB VTE prophylaxis: SCDs. Charges/Coding Visit Charges Inpatient E&M: 61867 Subs Hosp L2 10/08/24 1603 Cosigner Signature (if applicable): CC: ~ Signed [facility]06-09-2025 Consult note Author Roly Herrera [facility] Note Date/Time October 08, 2024 8:56a m [facility] Medical Records Department [address] [place] [address] Consultation - Cardiology 10/08/24 0836 MR#: [id number] Acct: [id number] Name: JAROD PRITCHARD Rep #:[id number] : 1940 83 From: Roly Herrera MD PCP: Dr. Kierra Santiago MD Status:AD M IN Location: [place] [address] Assessment & Plan Assessment/Plan (1) ABLA (acute blood loss anemia): PLAN: Patient hemoglobin had dropped to 6.5 she received 2 units of packed red blood cells repeat hemoglobin is pending. Dr. Giron has been consulted. (2) Chest pain: QUALIFIERS: Chest pain type: unspecified Qualified Code(s): R07.9- Chest pain, unspecified PLAN: Patient's chest discomfort has resolved. I do not feel this represents anischemic event. Although it is likely given her heart failure with preserved ejection fraction, her mild to moderate aortic stenosis, and likely coronary artery disease that she would have a bump in her enzymes with a hemoglobin dropping to 6.5 associated with her shortness of breath PND and orthopnea. (3) HFrEF (heart failure with reduced ejection fraction): PLAN: Patient's last echocardiogram May 2024 showed an EF of 63% with a mildly dilated left ventricle. There was moderate valvular heart disease documented as well. (4) Aortic valve stenosis: QUALIFIERS: Cardiac valve disease etiology: nonrheumatic Qualified Code(s): I35.0 - Nonrheumatic aortic (valve) stenosis PLAN: Patient's echocardiogram May 08, 2024 showed a peak gradient of 14 the mean gradient of 8 consistent with mild aortic stenosis. (5) Atrial fibrillation: QUALIFIERS: Atrial fibrillation type: paroxysmal Qualified Code(s): I48.0 - Paroxysmal atrial fibrillation PLAN: Patient's rhythm is extremely difficult to see but there are tiny P waves on her ECG that are not visible on telemetry. Her heart rate is around 60 bpm with sinus rhythm and frequent PACs. Repeat ECG today confirmed this rhythm. (6) Factor V Leiden: PLAN: Patient is on long-term Coumadin and Plavix. 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 Rojas. (7) Hypertension: QUALIFIERS: Hypertension type: primary hypertension Qualified Code(s): I10 - Essential (primary) hypertension PLAN: Blood pressure is well-controlled on her current medical therapy. PLAN: Plan 1. Continue current cardiovascular medical therapy. 2. Will hold Coumadin pending further GI evaluation and treatment. 3. Will need to hold Plavix in the interim. However this needs to be reinstituted given her PVD graft in her right lower extremity. Coumadin will also need to be reinstituted for her factor V Leiden deficiency when cleared by GI. 4. Will continue to follow-up with you as directed. HPI Consult Data Date of Consult: 10/08/24 HPI Narrative Reason for Consultation: GI bleed with history of atrial fibrillation. HPI Narrative: JAROD PRITCHARD, is a 83 F who presents with a 2-week history of a change in her bowel movements incessantly diagnosed with GI bleed and hemoglobin of 6.5. Patient noted about 2 weeks ago that her bowel movements changed in color and consistency. She has a history of a gastric ulcer back in MarchApril [address] Giron. She was reevaluated with upper endoscopy Julynd had a healed areas in her gastric mucosa. There was no active bleeding there were some erythematous changes. Patient reports from an A-fib standpoint she has been doing very well in her home environment her blood pressures come under much better control recently. She was last evaluated in the [facility] office in June 2024 where she was in a regular rhythm. In May 2024 she had been in atrial fibrillation with a controlled ventricular response. ECG on admission shows normal sinus rhythm with PACs and left axis deviation. Repeat ECG showed sinus bradycardia at 59 bpm with left axis deviation and frequent PACs. There were nonspecific ST-T wave changes on both ECGs that have not evolved. Patient's initial troponins were 46, 42, and 50. Patient was complaining of some [facility] did not show any acute ischemic changes. She denies any significant chest discomfort at this time. The patient did report that she had developed increasing right lower extremity edema that improved with increasing her Lasix in her home environment. She had also started using her oxygen 22/11 on 10/06/2024. And she had developeda recumbent cough, orthopnea and PND. Patient does have a history of heart failure with preserved ejection fraction remotely. The last echocardiogram done May 08, 2024 showed a mildly dilated left ventricle with an EF of 63%. The right ventricle was normal, the left atrial cavity was mildly dilated and the visualized aorta had a maximal diameter 4.1 cm. There was mild aortic valve stenosis with a calcified leaflet. 1+ AI was noted the peak gradient was 14 the mean gradient was 8. 1-2+ mitral regurgitation was documented. The patient is also monitored by Dr. Rojas for her peripheral vascular disease. She is status post right bypass surgery with artificial conduit. The patient has been on long-term Coumadin and her INR was 2.7 on admission. This is monitored through the [facility] Coumadin clinic. Currently the patient is resting comfortably in the seated position in her bed. [facility] Medical History (Updated 10/08/24 @ 08:[address] Roly Herrera MD) TIA (transient ischemic attack) Wears glasses Depression [...] warfarin 2 mg tablet 2 mg PO MOWEFR afib 03/07/24 Unknown History furosemide 40 mg tablet 40 mg [...] PRN pain Unknown History fluticasone propionate 50 2 spray intranasal Q12H PRN 10/07/24 Unknown History mcg/actuation nasal congestion spray,suspension gabapentin 100 mg capsule 100 mg [...] substance use type: does not use ROS Constitutional Constitutional: Reports as per HPI Eyes Eyes: Reports systems reviewed and no addt'l complaints, except as documented ENT HEENT: Reports systems reviewed and no addt'l complaints, except as documented Cardiovascular Cardiovascular: Reports as per HPI Respiratory/Chest Respiratory/Chest: Reports as per HPI Gastrointestinal Gastrointestinal: Reports as per HPI Genitourinary Genitourinary: Reports systems reviewed and no addt'l complaints, except as documented Musculoskeletal Musculoskeletal: Reports as per HPI Integumentary Integumentary: Reports systems reviewed and no addt'l complaints, except as documented Neurologic Neurologic: Reports systems reviewed and no addt'l complaints, except as documented Psychiatric Psychiatric: Reports systems reviewed and no addt'l complaints, except as documented Endocrine Endocrinology: Reports systems reviewed and no addt'l complaints, except as documented Hematologic/Lymphatic Hematologic/Lymphatic: Reports as per HPI Allergic/Immunologic Allergic/Immunologic: Reports systems reviewed and no addt'l complaints, except as documented Physical Exam Const alert and oriented x3 HEENT normocephalic Eyes EOMs intact bilaterally Neck no JVD Carotids: bruit Positive for left Chest inspection of chest normal Resp normal respiratory effort Auscultation: crackles bilateral lower and diminished lung sounds right lower Cardio Rate: regular rate Rhythm: abnormal rhythm ectopic beats Heart Sounds: S1 normal, S2 normal and murmur systolic II/ harsh holo left sternal border, right sternal border and sternal notch; Negative for click or gallop GI soft to palpation GI Narrative: Active bowel sounds Extremity no pedal edema Extremity Narrative: Status post right toes amputated. Neuro Neuro Narrative: Alert and oriented x 3 Psych mental status grossly normal Risk Stratification Risk Stratification Applicable: Yes Age >/= 65: Yes >/= 3 CAD Risk Factors (HTN, HLD, DM, family hx of CAD, or current smoker): No Aspirin Use in the Past 7 Days: No Severe Angina (>/= episodes in 24 hours): No EKG ST Changes >/= 0.5mm: No Positive Cardiac Marker: Yes JAMARI Risk Stratification Score: 2 JAMARI % Risk: 8% Risk Charges/Coding Visit Charges Inpatient E&M: 18841 Init Hosp L3 Objective Data Vital Signs: Vital Signs Temp Pulse Resp BP Pulse Ox O2 Del Method O2 Flow Rate 97.8 F 62 19 H 130/69 H 95 Nasal Cannula 3 10/08/24 08:07 10/08/24 08:07 10/08/24 08:07 10/08/24 08:07 10/08/24 08:07 10/08/24 08:07 10/08/24 08:07 Oxygen Flow Rate (L/min) 3 Oxygen Delivery Method Nasal Cannula Weight: 153 lb 10.595 oz Body Mass Index (BMI) 27.2 Intake & Output: Intake and Output for Last 24 Hours 10/06/24 10/07/24 10/08/24 23:59 23:59 23:59 Intake Total 1216 / 1216 Output Total 1075 / 1075 Balance 141 / 141 Lab / Micro Data Attestation: I reviewed the patient's lab results. 10/07/24 22:22 10/07/24 22:22 Labs: Laboratory Results - last 24 hr 10/07/24 22:22: WBC 7.4, RBC 1.93 L, Hgb 6.5 L, Hct 20.6 L, MCV 106.7 H, MCH 33.7 H, MCHC 31.6 L, RDW Std Deviation 72.3 H, RDW Coeff of Kate 19.2 H, Plt Count 184, MPV 11.5, Immature Gran % (Auto) 0.400, Neut % (Auto) 71.8 H, Lymph %(Auto) 18.2 L, [place] % (Auto) 8.9, Eos % (Auto) 0.4, [...] 24.9 H, Glucose 140 H, Calcium 8.6, Magnesium 2.0, Troponin T High Sens 46 H, NT pro BNP II 2304 H 10/07/24 23:21: Blood Type A POSITIVE, Antibody Screen NEGATIVE, Crossmatch See Detail 10/08/24 00:15: Troponin T Hi Sens 2 Hr 42 H 10/08/24 02:37: Troponin T Hi Sens 4Hr 50 H 10/08/24 05:55: PT 22.3 H, INR 1.9 10/08/24 06:04: POC Glucose 96 Micro: Microbiology 10/07/24 22:53 Stool Stool Occult Blood (LATANYA) - Final Occult Blood Positive Rhythm Strip Rhythm Strip: Sinus Rhythm Rate: 65 Ectopy: None Cardiology Labs/Tests 10/07/24 22:22: WBC 7.4, RBC 1.93 L, Hgb 6.5 L, Hct 20.6 L, MCV 106.7 H, MCH 33.7 H, MCHC 31.6 L, Plt Count 184, MPV 11.5, Immature Gran % (Auto) 0.400, Neut% (Auto) 71.8 H, Lymph % (Auto) 18.2 L, [place] % (Auto) 8.9, Eos % (Auto) 0.4, Baso % (Auto) 0.3, Absolute Neuts (auto) 5.3, Nucleated RBC % 1.5, PT 29.4 H, INR 2.7, Sodium 134, Potassium 3.9, Chloride 102, Carbon Dioxide 16.2 L, Anion Gap 16 H, BUN 36 H, Creatinine 1.46 H, Est GFR (MDRD) Non-Af 35 L, BUN/Creatinine Ratio 24.9 H, Glucose 140 H, Calcium 8.6, Magnesium 2.0 10/08/24 05:55: PT 22.3 H, INR 1.9 Rhythm: EKG: ECHO: Stress Test: Cardiac Cath: PCI: CT Surgery: Holter monitor: EPS: PPM: CXR: Chest CT Scan: Radiography Diagnostic Testing: Radiology Impression Chest X-Ray 10/07/24 22:40 IMPRESSION: Trace left pleural effusion and mild cardiomegaly. Reading Location: [facility] 10/08/24 0856 <Electronically signed by Roly Herrera MD> Cosigner Signature (if applicable): CC: Dr. Kierra Santiago MD~ Signed [facility] Work Phone: [phone] Consult note [facility] Medical Records Department [address] [place] [address] Consultation - Cardiology 10/08/2436 MR#: [id number] Acct: [id number] Name: JAROD PRITCHARD Rep #:[id number] : 1940 83 From: Roly Herrera MD PCP: Dr. Kierra Santiago MD Status:AD M IN Location: [facility] [id number] Assessment & Plan Assessment/Plan (1) ABLA (acute blood loss anemia): PLAN: Patient hemoglobin had dropped to 6.5 she received 2 units of packed red blood cells repeat hemoglobin is pending. Dr. Giron has been consulted. (2) Chest pain: QUALIFIERS: Chest pain type: unspecified Qualified Code(s): R07.9- Chest pain, unspecified PLAN: Patient's chest discomfort has resolved. I do not feel this represents anischemic event. Although it is likely given her heart failure with preserved ejection fraction, her mild to moderate aortic stenosis, and likely coronary artery disease that she would have a bump in her enzymes with a hemoglobin dropping to 6.5 associated with her shortness of breath PND and orthopnea. (3) HFrEF (heart failure with reduced ejection fraction): PLAN: Patient's last echocardiogram May 2024 showed an EF of 63% with a mildly dilated left ventricle. There was moderate valvular heart disease documented as well. (4) Aortic valve stenosis: QUALIFIERS: Cardiac valve disease etiology: nonrheumatic Qualified Code(s): I35.0 - Nonrheumatic aortic (valve) stenosis PLAN: Patient's echocardiogram May 08, 2024 showed a peak gradient of 14 the mean gradient of 8 consistent with mild aortic stenosis. (5) Atrial fibrillation: QUALIFIERS: Atrial fibrillation type: paroxysmal Qualified Code(s): I48.0 - Paroxysmal atrial fibrillation PLAN: Patient's rhythm is extremely difficult to see but there are tiny P waves on her ECG that arenot visible on telemetry. Her heart rate is around 60 bpm with sinus rhythm and frequent PACs. Repeat ECG today confirmed this rhythm. (6) Factor V Leiden: PLAN: Patient is on long-term Coumadin and Plavix. 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 Rojas. (7) Hypertension: QUALIFIERS: Hypertension type: primary hypertension Qualified Code(s): I10 - Essential (primary) hypertension PLAN: Blood pressure is well-controlled on her current medical therapy. PLAN: Plan 1. Continue current cardiovascular medical therapy. 2. Will hold Coumadin pending further GI evaluation and treatment. 3. Will need to hold Plavix in the interim. However this needs to be reinstituted given her PVD graft in her right lower extremity. Coumadin will also need to be reinstituted for her factor V Leiden deficiency when cleared by GI. 4. Will continue to follow-up with you as directed. HPI Consult Data Date of Consult: 10/08/24 HPI Narrative Reason for Consultation: GI bleed with history of atrial fibrillation. HPI Narrative: JAROD PRITCHARD, is a 83 F who presents with a 2-week history of a change in her bowel movements incessantly diagnosed with GI bleed and hemoglobin of 6.5. Patient noted about 2 weeks ago that her bowel movements changed in color and consistency. She has a history of a gastric ulcer back in MarchApril [address] Giron. She was reevaluated with upper endoscopy Julynd had a healed areas in her gastric mucosa. There was no active bleeding there were some erythematous changes. Patient reports from an A-fib standpoint she has been doing very well in her home environment her blood pressures come under much better control recently. She was last evaluated in the [facility] office in June 2024 where she was in a regular rhythm. In May 2024 she had been in atrial fibrillation with a controlled ventricular response. ECG on admission shows normal sinus rhythm with PACs and left axis deviation. Repeat ECG showed sinus bradycardia at 59 bpm with left axis deviation and frequent PACs. There were nonspecific ST-T wave changes on both ECGs that have not evolved. Patient's initial troponins were 46, 42, and 50. Patient was complaining of some chest fullness and tightness when she first presented to theemergency department. ECG did not show any acute ischemic changes. She denies any significant chest discomfort atthis time. The patient did report that she had developed increasing right lower extremity edema that improved with increasing her Lasix in her home environment. She had also started using her oxygen / on 10/06/2024. And she had developeda recumbent cough, orthopnea and PND. Patient does have a history of heart failure with preserved ejection fraction remotely. The last echocardiogram done May 08, 2024 showed a mildly dilated left ventricle with an EF of 63%. The right ventricle was normal, the left atrial cavity was mildly dilated and the visualized aorta had a maximal diameter 4.1 cm. There was mild aortic valve stenosis with a calcified leaflet. 1+ AI was noted the peak gradient was 14 the mean gradient was 8. 1-2+ mitral regurgitation was documented. The patient is also monitored by Dr. Rojas for her peripheral vascular disease. She is status postright bypass surgery with artificial conduit. The patient has been on long-term Coumadin and her INR was 2.7 on admission. This is monitored through the [facility] Coumadin clinic. Currently the patient is resting comfortably in the seated position in her bed. [facility] Medical History (Updated 10/08/24 @ 08:[address] Roly Herrera MD) TIA (transient ischemic attack) Wears glasses Depression [...] warfarin 2 mg tablet 2 mg PO MOWEFR afib 03/07/24 Unknown History furosemide 40 mg tablet 40 mg [...] PRN pain Unknown History fluticasone propionate 50 2 spray intranasal Q12H PRN 10/07/24 Unknown History mcg/actuation nasal congestion spray,suspension gabapentin 100 mg capsule 100 mg [...] substance use type: does not use ROS Constitutional Constitutional: Reports as per HPI Eyes Eyes: Reports systems reviewed and no addt'l complaints, except as documented ENT HEENT: Reports systems reviewed and no addt'l complaints, except as documented Cardiovascular Cardiovascular: Reports as per HPI Respiratory/Chest Respiratory/Chest: Reports as per HPI Gastrointestinal Gastrointestinal: Reports as per HPI Genitourinary Genitourinary: Reports systems reviewed and no addt'l complaints, except as documented Musculoskeletal Musculoskeletal: Reports as per HPI Integumentary Integumentary: Reports systems reviewed and no addt'l complaints, except as documented Neurologic Neurologic: Reports systems reviewed and no addt'l complaints, except as documented Psychiatric Psychiatric: Reports systems reviewed and no addt'l complaints, except as documented Endocrine Endocrinology: Reports systems reviewed and no addt'l complaints, except as documented Hematologic/Lymphatic Hematologic/Lymphatic: Reports as per HPI Allergic/Immunologic Allergic/Immunologic: Reports systems reviewed and no addt'l complaints, except as documented Physical Exam Const alert and oriented x3 HEENT normocephalic Eyes EOMs intact bilaterally Neck no JVD Carotids: bruit Positive for left Chest inspection of chest normal Resp normal respiratory effort Auscultation: crackles bilateral lower and diminished lung sounds right lower Cardio Rate: regular rate Rhythm: abnormal rhythm ectopic beats Heart Sounds: S1 normal, S2 normal and murmur systolic II/ harsh holo left sternal border, right sternal border and sternal notch; Negative for click or gallop GI soft to palpation GI Narrative: Active bowel sounds Extremity no pedal edema Extremity Narrative: Status post right toes amputated. Neuro Neuro Narrative: Alert and oriented x 3 Psych mental status grossly normal Risk Stratification Risk Stratification Applicable: Yes Age >/= 65: Yes >/= 3 CAD Risk Factors (HTN, HLD, DM, family hx of CAD, or current smoker): No Aspirin Use in the Past 7 Days: No Severe Angina (>/= episodes in 24 hours): No EKG ST Changes >/= 0.5mm: No Positive Cardiac Marker: Yes JAMARI Risk Stratification Score: 2 JAMARI % Risk: 8% Risk Charges/Coding Visit Charges Inpatient E&M: 08941 Init Hosp L3 Objective Data Vital Signs: Vital Signs Temp Pulse Resp BP Pulse Ox O2 Del Method O2 Flow Rate 97.8 F 62 19 H 130/69 H 95 Nasal Cannula 3 10/08/24 08:07 10/08/24 08:07 10/08/24 08:07 10/08/24 08:07 10/08/24 08:07 10/08/24 08:07 10/08/24 08:07 Oxygen Flow Rate (L/min) 3 Oxygen Delivery Method Nasal Cannula Weight: 153 lb 10.595 oz Body Mass Index (BMI) 27.2 Intake & Output: Intake and Output for Last 24 Hours 10/06/24 10/07/24 10/08/24 23:59 23:59 23:59 Intake Total 1216 / 1216 Output Total 1075 / 1075 Balance 141 / 141 Lab / Micro Data Attestation: I reviewed the patient's lab results. 10/07/24 22:22 10/07/24 22:22 Labs: Laboratory Results - last 24 hr 10/07/24 22:22: WBC 7.4, RBC 1.93 L, Hgb 6.5 L, Hct 20.6 L, MCV 106.7 H, MCH 33.7 H, MCHC 31.6 L, RDW Std Deviation 72.3 H, RDW Coeff of Kate 19.2 H, Plt Count 184, MPV 11.5, Immature Gran % (Auto) 0.400, Neut % (Auto) 71.8 H, Lymph %(Auto) 18.2 L, [place] % (Auto) 8.9, Eos % (Auto) 0.4, Baso % (Auto) 0.3, Absolute Neuts (auto) 5.3, Absolute Lymphs (auto) 1.35, Nucleated RBC % 1.5, DifferentialComment SCANNED, Platelet Estimate ADEQUATE, Polychromasia 2+, Anisocytosis 2+, PT 29.4 H, INR 2.7, [id number], Potassium 3.9, Chloride 102, Carbon Dioxide 16.2L, Anion Gap 16 H, BUN 36 H, Creatinine 1.46 H, Estim Creat Clear Calc 26.99 L, Est GFR (MDRD) Non-Af 35 L, BUN/Creatinine Ratio 24.9 H, Glucose 140 H, Calcium 8.6, Magnesium 2.0, Troponin T High Sens 46 H, NT pro BNP II 2304 H 10/07/24 23:21: Blood Type A POSITIVE, Antibody Screen NEGATIVE, Crossmatch See Detail 10/08/24 00:15: Troponin T Hi Sens 2 Hr 42 H 10/08/24 02:37: Troponin T Hi Sens 4Hr 50 H 10/08/24 05:55: PT 22.3 H, INR 1.9 10/08/24 06:04: POC Glucose 96 Micro: Microbiology 10/07/24 22:53 Stool Stool Occult Blood (LATANYA) - Final Occult Blood Positive Rhythm Strip Rhythm Strip: Sinus Rhythm Rate: 65 Ectopy: None Cardiology Labs/Tests 10/07/24 22:22: WBC 7.4, RBC 1.93 L, Hgb 6.5 L, Hct 20.6 L, MCV 106.7 H, MCH 33.7 H, MCHC 31.6 L, Plt Count 184, MPV 11.5, Immature Gran % (Auto) 0.400, Neut% (Auto) 71.8 H, Lymph % (Auto) 18.2 L, [place] % (Auto) 8.9, Eos % (Auto) 0.4, Baso % (Auto) 0.3, Absolute Neuts (auto) 5.3, Nucleated RBC % 1.5, PT 29.4 H, INR 2.7, Sodium 134, Potassium 3.9, Chloride 102, Carbon Dioxide 16.2 L, Anion Gap 16 H, BUN 36 H, Creatinine 1.46 H, Est GFR (MDRD) Non-Af 35 L, BUN/Creatinine Ratio 24.9 H, Glucose 140 H, Calcium 8.6, Magnesium 2.0 10/08/24 05:55: PT 22.3 H, INR 1.9 Rhythm: EKG: ECHO: Stress Test: Cardiac Cath: PCI: CT Surgery: Holter monitor: EPS: PPM: CXR: Chest CT Scan: Radiography Diagnostic Testing: Radiology Impression Chest X-Ray 10/07/24 22:40 IMPRESSION: Trace left pleural effusion and mild cardiomegaly. Reading Location: [id number] 10/08/24 0856 Cosigner Signature (if applicable): CC: Dr. Kierra Santiago MD~ Signed [facility]06-09-2025 Discharge summary Author Matheus Fabian [facility] Note Date/Time October 08, 2024 1:12a m [facility] Medical Records Department [address] [place] [address] Emergency Department Summary 10/07/24 MR#: [id number] Acct: [id number] Name: JAROD PRITCHARD Rep #:[id number] : 1940 83 From: Matheus Fabian MD PCP: Dr. Kierra Santiago MD Status:AD M IN Location: [place] [address] HPI History of Present Illness Chief Complaint: Shortness of Breath Informant: patient and spouse/S.O. Narrative Narrative: 83-year-old female has had substernal nonpleuritic heaviness and dyspnea for thepast day or 2. Worse when she lies down. Mild nonproductive cough. No fevers or chills. Has history of congestive heart failure, she had had worsening swelling in her leg for the past week or so but yesterday she states she fasted and then additionally took some extra Lasix, and the swelling went back down. 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 She also had carotid disease, she is following with Dr. Rojas here and they are monitoring. She usually wears oxygen 2 L every night, but yesterday and today she has been wearing it during the day because of her dyspnea and has been helping some. Hasbeen in atrial fibrillation before, does not feel like she is in it now. Patient also states has a history of a gastric ulcer that was cauterized by Dr. Giron. She is concerned that maybe she has more bleeding because she states that she was eating a lot of cinnamon and her stools looked cinnamon colored. 1-2 weeks ago she stopped eating cinnamon and her stools are still cinnamon colored, and they are darker as well but she takes iron. [facility] Medical History TIA (transient ischemic attack) Wears [...] Rx iron) tablet (FeroSul) days #30 tabs sertraline 25 mg tablet 25 mg PO DAILY mood 03/07/24 08/22/24 History warfarin 2 mg tablet 2 mg PO .MWF afib 03/07/24 U nknown History furosemide 40 mg tablet 40 mg PO DAILY water pill 30 days 03/19/24 01/27/24 Rx #60 tabs clopidogrel 75 mg tablet 75 mg PO DAILY 30 days #30 t abs 04/05/24 Unknown Rx pantoprazole 40 mg tablet,delayed 40 mg PO BID 30 days #60 tabs 04/05/24 Unknown Rx release tizanidine 2 mg tablet 4 mg (2 x 2 mg) PO Q8 PRN Mu scle 04/05/24 Unknown Rx Spasm 30 days #180 tabs simvastatin 80 mg tablet 80 mg PO QDAY 06/20/24 Unkno wn History gabapentin 100 mg capsule 100 mg PO BID #0 caps Unknown Rx metoprolol succinate 50 mg 50 mg PO BID #1 TAB 5 08/22/24 Rx tablet,extended release 24 hr Cinnamon 2 tab PO BID 08/17/24 Unknow n History magnesium chloride 64 mg 128 mg PO DAILY 08/17/24 Unk nown History (magnesium chloride) tablet,delayed release (Mag 64) warfarin 3 mg tablet 3 mg PO SUTUTHSA 08/17/24 Un known History losartan 100 mg tablet 100 mg PO QDAY #90 tabs 08/01 05/26 Unknown Rx potassium chloride 20 mEq 20 meq PO QDAY 08/20/24 Unkn own History tablet,extended release amlodipine 10 mg tablet 10 mg PO .COMPLEX #90 tabs 0 09/04/24 Unknown Rx Allergy/AdvReac Type Severity Reaction Status Date / Time benazepril (From Lotensin) Allergy Mild DOESNT Verified 10/07/24 21:21 REMEMBER quinapril (From Accupril) Allergy Mild UNKNOWN Verified 10/07/24 21:21 Sulfa (Sulfonamide Allergy Mild Hives Verified 10/07/24 21:21 Antibiotics) verapamil (From Calan) Allergy Mild UNKNOWN Verified 10/07/24 21:21 Family History Other Asthma COPD (chronic obstructive pulmonary disease) CVA (cerebral vascular accident) Diabetes Heart disease Hypertension Myocardial infarction Surgical History Hx of amputation History of transmetatarsal amputation of right foot History of femoropopliteal bypass S/P carotid endarterectomy Social History household members: spouse Smoking Status: Never smoker alcohol intake: never substance use type: does not use ROS ROS ED Constitutional Constitutional ED: Denies chills or fever(s) Eyes Eyes: Denies change in vision or diplopia ENT ENT ED: Denies rhinorrhea or sore throat Cardiovascular Cardiovascular: Reports chest pain, leg edema and orthopnea; Denies palpitations, racing heartbeat or syncope Respiratory/Chest Respiratory/Chest: Reports cough, dyspnea and orthopnea; Denies sputum Gastrointestinal Gastrointestinal: Denies abdominal pain, diarrhea, nausea or vomiting Genitourinary Genitourinary ED: Denies dysuria or hematuria Musculoskeletal Musculoskeletal: Denies back pain or neck pain Integumentary Denies abscess or rash Neurologic Neurologic: Denies headache(s), paresthesias or weakness Psychiatric Psychiatric: Denies suicidal thoughts EXAM Physical Exam Const Vital Signs: 10/07/24 21:21 10/07/24 21:26 10/07/24 [...] Ox 90 Oxygen Delivery Method Room Air Positive well nourished and well developed General Appearance ED: well developed and NAD HEENT Reports moist mucous membranes normocephalic and atraumatic Eyes PERRL and EOMs intact bilaterally Neck full ROM, supple and no JVD Resp normal respiratory effort Resp Narrative: Bibasilar rhonchi, symmetric bilaterally trachea midline Cardio regular rate and regular rhythm Heart Sounds: murmur systolic II/ soft left sternal border GI non-tender and non-distended Auscultation: normoactive bowel sounds Palpation: soft Back/Spine no CVA tenderness General Back: other FROM Extremity normal to inspection General Extremety ED: Negative for edema, pulses abnormal or tenderness General Extremity: Negative for edema or pulses abnormal Neuro oriented x3, CN's II-XII intact bilaterally and no sensory deficits noted Sensorium / Orientation: awake and alert Motor Exam: strength 5/5 throughout Skin no rashes or lesions noted and no wounds MDM MDM MDM Narrative Medical decision making narrative: Initial study is the patient's EKG which shows some ST depressions in the lateral leads, but I do not see any evidence of a STEMI. Her rhythm is sinus, she has a left axis. Her troponin is a little bit elevated at 46 and her proBNPis 2300, consistent with acute congestive heart failure but more concerning thanthis is her hemoglobin of 6.5, suspicious for acute blood loss anemia possibly from GI bleeding since her last hemoglobin was almost double this although that was a couple months ago. Patient is amenable to blood transfusion so I typed and crossed her for 2 units. I sent a Hemoccult, it is positive she had no gross blood on rectal or tenderness. She consents to blood transfusion. Her BUN and creatinine are little elevated, possibly consistent with a mild upper GIbleed. She has had no hematemesis. She is on warfarin her INR is 2.7, she doesnot have a mechanical heart valve, therefore she will also need a transfusion ofFFP to reverse her. She is not unstable and her vital signs are normal, I thinkreasonable to use FFP as opposed to factor reversal. Additionally troponin nonspecifically elevated in context of what is likely some endocardial ischemia, inthis context that the treatment is blood transfusion which we are also doing. She can be admitted to a non-ICU setting. Chest x-ray 2 views of my interpretation appears to show small left pleural effusion, but I think her dyspnea is more attributable to her anemia. There may be a component of congestive heart failure here as well. Plan is for admission. Lab Data Attestation: I reviewed the patient's lab results. Labs: Laboratory Results - last 24 hr 10/07/24 10/07/24 22:22 23:21 WBC 7.4 RBC 1.93 L Hgb 6.5 L Hct 20.6 L MCV 106.7 H MCH 33.7 H MCHC 31.6 L RDW Std Deviation 72.3 H RDW Coeff of Kate 19.2 H Plt Count 184 MPV 11.5 Immature Gran % (Auto) 0.400 Neut % (Auto) 71.8 H Lymph % (Auto) 18.2 L [place] % (Auto) 8.9 Eos % (Auto) 0.4 Baso % (Auto) 0.3 Absolute Neuts (auto) 5.3 Absolute Lymphs (auto) 1.35 Nucleated RBC % 1.5 Differential Comment SCANNED Platelet Estimate ADEQUATE Polychromasia 2+ Anisocytosis 2+ PT 29.4 H INR 2.7 Sodium 134 Potassium 3.9 Chloride 102 Carbon Dioxide 16.2 L Anion Gap 16 H BUN 36 H Creatinine 1.46 H Estim Creat Clear Calc 26.99 L Est GFR (MDRD) Non-Af 35 L BUN/Creatinine Ratio 24.9 H Glucose 140 H Calcium 8.6 Troponin T High Sens 46 H NT pro BNP II 2304 H Crossmatch See Detail Radiography Diagnostic Testing: Clinical Impression(s) from Imaging Studies Chest X-Ray 10/07/24 22:40 IMPRESSION: Trace left pleural effusion and mild cardiomegaly. Reading Location: [id number] Rhythm Strip Rhythm Strip: Sinus Rhythm Rate: 65 Ectopy: None EKG Initial EKG: Attestation: I personally reviewed and interpreted this EKG as follows: Interpretation: Sinus Rhythm, No Acute Injury Pattern and S-T Depression (1mm, 1 aVL, V3-6; no JUSTO) Prior: Changed Management Discussion w/another healthcare provider: Hospitalist Critical Care Time Critical Care Time: Yes Critical care time (excluding procedures): 30-74 minutes (36 min), Including time spent:, Discussing w/Patient &/or Family/Manufacturing Operations Manager, Discussing w/Consultants, Arranging Admission or Transfer and Performing Direct Patient Care at Bedside Discharge Plan Triage Chief Complaint: Shortness of Breath ED Provider: Matheus Fabian Dx/Rx/DC Orders Clinical Impression: ABLA (acute blood loss anemia), HFrEF (heart failure with reduced ejection fraction), Acute upper GI bleed, Pleural effusion, left, Warfarin-induced coagulopathy, Subendocardial ischemia Prescriptions: No Action simvastatin 80 mg tablet 80 mg PO QDAY ferrous sulfate [FeroSul] 325 mg (65 mg iron) Tablet 325 mg PO DAILY@1200 30 Days Qty: 30 0RF tizanidine 2 mg Tablet 4 mg PO Q8 PRN (Reason: Muscle Spasm) 30 Days Qty: 180 0RF clopidogrel 75 mg Tablet 75 mg PO DAILY 30 Days Qty: 30 0RF pantoprazole 40 mg Tablet,Delayed Release (Dr/Ec) 40 mg PO BID 30 Days Qty: 60 0RF oxybutynin chloride 10 mg tablet extended release 24hr 10 mg PO DAILY glimepiride 2 mg tablet 2 mg PO DAILY sertraline 25 mg tablet 25 mg PO DAILY warfarin 2 mg tablet 2 mg PO .MWF furosemide 40 mg Tablet 40 mg PO DAILY 30 Days Qty: 60 2RF magnesium chloride [Mag 64] 64 mg tablet,delayed release (DR/EC) 128 mg PO DAILY Cinnamon 2 tab PO BID warfarin 3 mg tablet 3 mg PO SUTUTHSA gabapentin 100 mg capsule 100 mg PO BID Qty: 0 0RF metoprolol succinate 50 mg tablet extended release 24 hr 50 mg PO BID Qty: 1 0RF potassium chloride 20 mEq tablet extended release 20 meq PO QDAY losartan 100 mg tablet 100 mg PO QDAY Qty: 90 3RF amlodipine 10 mg tablet 10 mg PO .COMPLEX Qty: 90 3RF Rx Instructions: 10 mg orally DAILY: this is a dose increase, pt was using up her 5mg tablets to = 10 mg. Pt is out of med and is in store now. PLEASE FILL, thank you!!; Primary Care Provider: Kierra Santiago Referrals: Kierra Santiago MD [Primary Care Provider] - Print Language: Estonian Disposition Disposition: Acute Care Hospital [facility] What to do if you have Problems For any increased pain, shortness of breath, bleeding, nausea or vomiting, chestpain, or any unexpected problems, contact your Primary Care Provider. Call [facility] ([phone]) or report to the closest Emergency Room. Call 911 if necessary. 10/08/24 0112 <Electronically signed by Matheus Fabian MD> Cosigner Signature (if applicable): CC: Dr. Kierra Santiago MD ~ Signed [facility] Work Phone: 1(664) 379-694206-09-2025 History and physical note Author Kelsie Muñoz [facility] Note Date/Time October 08, 2024 12:32 am [facility] Medical Records Department [address] [place] [address] H&P Exam - Hospitalist 10/07/24 2342 MR#: [id number] Acct: [id number] Name: JAROD PRITCHARD Rep #:[id number] : 1940 83 From: Kelsie Muñoz MD PCP: Dr. Kierra Santiago MD Status:AD M IN Location: [address] 1 HPI - General General Date of Admission: [...] with no gross lesions presents to the [facility] ED on 10/07/2024 with history of [...] answered albuterol,Protonix 40 mg IV x 1. [facility] History TIA (transient ischemic attack) Wears [...] (Auto) 71.8 H, Lymph %(Auto) 18.2 L, [place] % (Auto) 8.9, Eos % (Auto) 0.4, [...] pleural effusion and mild cardiomegaly. Reading Location: [id number] Assessment & Plan Assessment/Plan (1) Acute upper [...] Coumadin, recent upper endoscopy 08/22/[address] Friend secondary to history of gastric ulcer for surveillance with normal esophagus, erythematous mucosa in the gastric body which was biopsied with no gross lesions presents to the [facility] ED on 10/07/2024 with history of [...] regimen, monitor I/Os, patient unable to tolerate juan j wraps of note thus will defer, most [...] 16 minutes. Charges/Coding Visit Charges Inpatient E&M: 68865 Init Hosp L3 Procedures Hospitalists Procedures: 68335 Advncd Care Plan 30 Min 10/08/24 0032 <Electronically signed by Kelsie Muñoz MD> Cosigner Signature (if applicable): CC: Dr. Kelsie Muñoz MD; Dr. Kierra Santiago MD~ Signed [facility] Work Phone: 1(134) 494-890606-09-2025 Discharge summary [facility] Medical Records Department [address] [place] [address] Emergency Department Summary 10/07/24 MR#: [id number] Acct: [id number] Name: JAROD PRITCHARD Rep #:[id number] : 1940 83 From: Matheus Fabian MD PCP: Dr. Kierra Santiago MD Status:AD M IN Location: [address] History of Present Illness Chief Complaint: Shortness of Breath Informant: patient and spouse/S.O. Narrative Narrative: 83-year-old female has had substernal nonpleuritic heaviness and dyspnea for thepast day or 2. Worse when she lies down. Mild nonproductive cough. No fevers or chills. Has history of congestive heartfailure, she had had worsening swelling in her leg for the past week or so but yesterday she statesshe fasted and then additionally took some extra Lasix, and the swelling went back down. 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 She also had carotid disease, she is following with Dr. Rojas here and they are monitoring. She usually wears oxygen 2 L every night, but yesterday and today she has been wearing it during the day because of her dyspnea and has been helping some. Hasbeen in atrialfibrillation before, does not feel like she is in it now. Patient also states has a history of a gastric ulcer that was cauterized by Dr. Giron. She is concerned that maybe she has more bleeding because she states that she was eating a lot of cinnamon and her stools looked cinnamon colored. 1- 2 weeks ago she stopped eating cinnamon and her stools are still cinnamon colored, and they are darker as well but she takes iron. [facility] Medical History TIA (transient ischemic attack) Wears [...] Rx iron) tablet (FeroSul) days #30 tabs sertraline 25 mg tablet 25 mg PO DAILY mood 03/07/24 08/22/24 History warfarin 2 mg tablet 2 mg PO .MWF afib 03/07/24 U nknown History furosemide 40 mg tablet 40 mg PO DAILY water pill 30 days 03/19/24 01/27/24 Rx #60 tabs clopidogrel 75 mg tablet 75 mg PO DAILY 30 days #30 t abs 04/05/24 Unknown Rx pantoprazole 40 mg tablet,delayed 40 mg PO BID 30 days #60 tabs 04/05/24 Unknown Rx release tizanidine 2 mg tablet 4 mg (2 x 2 mg) PO Q8 PRN Mu scle 04/05/24 Unknown Rx Spasm 30 days #180 tabs simvastatin 80 mg tablet 80 mg PO QDAY 06/20/24 Unkno wn History gabapentin 100 mg capsule 100 mg PO BID #0 caps Unknown Rx metoprolol succinate 50 mg 50 mg PO BID #1 TAB 5 08/22/24 Rx tablet,extended release 24 hr Cinnamon 2 tab PO BID 08/17/24 Unknow n History magnesium chloride 64 mg 128 mg PO DAILY 08/17/24 Unk nown History (magnesium chloride) tablet,delayed release (Mag 64) warfarin 3 mg tablet 3 mg PO SUTUTHSA 08/17/24 Un known History losartan 100 mg tablet 100 mg PO QDAY #90 tabs 08/01 05/26 Unknown Rx potassium chloride 20 mEq 20 meq PO QDAY 08/20/24 Unkn own History tablet,extended release amlodipine 10 mg tablet 10 mg PO .COMPLEX #90 tabs 0 09/04/24 Unknown Rx Allergy/AdvReac Type Severity Reaction Status Date / Time benazepril (From Lotensin) Allergy Mild DOESNT Verified 10/07/24 21:21 REMEMBER quinapril (From Accupril) Allergy Mild UNKNOWN Verified 10/07/24 21:21 Sulfa (Sulfonamide Allergy Mild Hives Verified 10/07/24 21:21 Antibiotics) verapamil (From Calan) Allergy Mild UNKNOWN Verified 10/07/24 21:21 Family History Other Asthma COPD (chronic obstructive pulmonary disease) CVA (cerebral vascular accident) Diabetes Heart disease Hypertension Myocardial infarction Surgical History Hx of amputation History of transmetatarsal amputation of right foot History of femoropopliteal bypass S/P carotid endarterectomy Social History household members: spouse Smoking Status: Never smoker alcohol intake: never substance use type: does not use ROS ROS ED Constitutional Constitutional ED: Denies chills or fever(s) Eyes Eyes: Denies change in vision or diplopia ENT ENT ED: Denies rhinorrhea or sore throat Cardiovascular Cardiovascular: Reports chest pain, leg edema and orthopnea; Denies palpitations, racing heartbeat or syncope Respiratory/Chest Respiratory/Chest: Reports cough, dyspnea and orthopnea; Denies sputum Gastrointestinal Gastrointestinal: Denies abdominal pain, diarrhea, nausea or vomiting Genitourinary Genitourinary ED: Denies dysuria or hematuria Musculoskeletal Musculoskeletal: Denies back pain or neck pain Integumentary Denies abscess or rash Neurologic Neurologic: Denies headache(s), paresthesias or weakness Psychiatric Psychiatric: Denies suicidal thoughts EXAM Physical Exam Const Vital Signs: 10/07/24 21:21 10/07/24 21:26 10/07/24 [...] Ox 90 Oxygen Delivery Method Room Air Positive well nourished and well developed General Appearance ED: well developed and NAD HEENT Reports moist mucous membranes normocephalic and atraumatic Eyes PERRL and EOMs intact bilaterally Neck full ROM, supple and no JVD Resp normal respiratory effort Resp Narrative: Bibasilar rhonchi, symmetric bilaterally trachea midline Cardio regular rate and regular rhythm Heart Sounds: murmur systolic II/ soft left sternal border GI non-tender and non-distended Auscultation: normoactive bowel sounds Palpation: soft Back/Spine no CVA tenderness General Back: other FROM Extremity normal to inspection General Extremety ED: Negative for edema, pulses abnormal or tenderness General Extremity: Negative for edema or pulses abnormal Neuro oriented x3, CN's II-XII intact bilaterally and no sensory deficits noted Sensorium / Orientation: awake and alert Motor Exam: strength 5/5 throughout Skin no rashes or lesions noted and no wounds MDM MDM MDM Narrative Medical decision making narrative: Initial study is the patient's EKG which shows some ST depressions in the lateral leads, but I do not see any evidence of a STEMI. Her rhythm is sinus, she has a left axis. Her troponin is a little bit elevated at 46 and her proBNPis 2300, consistent with acute congestive heart failure but more conc erning thanthis is her hemoglobin of 6.5, suspicious for acute blood loss anemia possibly from GI bleeding since her last hemoglobin was almost double this although that was a couple months ago. Patient is amenable to blood transfusion so I typed and crossed her for 2 units. I sent a Hemoccult, it is positive she had no gross blood on rectal or tenderness. She consents to blood transfusion. Her BUN and creatinine are little elevated, possibly consistent with a mild upper GIbleed. She has had nohematemesis. She is on warfarin her INR is 2.7, she doesnot have a mechanical heart valve, therefore she will also need a transfusion ofFFP to reverse her. She is not unstable and her vital signs are normal, I thinkreasonable to use FFP as opposed to factor reversal. Additionally troponin nonspecifically elevated in context of what is likely some endocardial ischemia, inthis context that the treatment is blood transfusion which we are also doing. She can be admitted to a non-ICU setting. Chest x-ray 2 views of my interpretation appears to show small left pleural effusion, but I think her dyspnea is more attributable to her anemia. There may be a component of congestive heart failure here aswell. Plan is for admission. Lab Data Attestation: I reviewed the patient's lab results. Labs: Laboratory Results - last 24 hr 10/07/24 10/07/24 22:22 23:21 WBC 7.4 RBC 1.93 L Hgb 6.5 L Hct 20.6 L MCV 106.7 H MCH 33.7 H MCHC 31.6 L RDW Std Deviation 72.3 H RDW Coeff of Kate 19.2 H Plt Count 184 MPV 11.5 Immature Gran % (Auto) 0.400 Neut % (Auto) 71.8 H Lymph % (Auto) 18.2 L [place] % (Auto) 8.9 Eos % (Auto) 0.4 Baso % (Auto) 0.3 Absolute Neuts (auto) 5.3 Absolute Lymphs (auto) 1.35 Nucleated RBC % 1.5 Differential Comment SCANNED Platelet Estimate ADEQUATE Polychromasia 2+ Anisocytosis 2+ PT 29.4 H INR 2.7 Sodium 134 Potassium 3.9 Chloride 102 Carbon Dioxide 16.2 L Anion Gap 16 H BUN 36 H Creatinine 1.46 H Estim Creat Clear Calc 26.99 L Est GFR (MDRD) Non-Af 35 L BUN/Creatinine Ratio 24.9 H Glucose 140 H Calcium 8.6 Troponin T High Sens 46 H NT pro BNP II 2304 H Crossmatch See Detail Radiography Diagnostic Testing: Clinical Impression(s) from Imaging Studies Chest X-Ray 10/07/24 22:40 IMPRESSION: Trace left pleural effusion and mild cardiomegaly. Reading Location: [id number] Rhythm Strip Rhythm Strip: Sinus Rhythm Rate: 65 Ectopy: None EKG Initial EKG: Attestation: I personally reviewed and interpreted this EKG as follows: Interpretation: Sinus Rhythm, No Acute Injury Pattern and S-T Depression (1mm, 1 aVL, V3-6; no JUSTO) Prior: Changed Management Discussion w/another healthcare provider: Hospitalist Critical Care Time Critical Care Time: Yes Critical care time (excluding procedures): 30-74 minutes (36 min), Including time spent:, Discussing w/Patient &/or Family/Manufacturing Operations Manager, Discussing w/Consultants, Arranging Admission or Transfer and Performing Direct Patient Care at Bedside Discharge Plan Triage Chief Complaint: Shortness of Breath ED Provider: Matheus Fabian Dx/Rx/DC Orders Clinical Impression: ABLA (acute blood loss anemia), HFrEF (heart failure with reduced ejection fraction), Acute upper GI bleed, Pleural effusion, left, Warfarin-induced coagulopathy, Subendocardial ischemia Prescriptions: No Action simvastatin 80 mg tablet 80 mg PO QDAY ferrous sulfate [FeroSul] 325 mg (65 mg iron) Tablet 325 mg PO DAILY@1200 30 Days Qty: 30 0RF tizanidine 2 mg Tablet 4 mg PO Q8 PRN (Reason: Muscle Spasm) 30 Days Qty: 180 0RF clopidogrel 75 mg Tablet 75 mg PO DAILY 30 Days Qty: 30 0RF pantoprazole 40 mg Tablet,Delayed Release (Dr/Ec) 40 mg PO BID 30 Days Qty: 60 0RF oxybutynin chloride 10 mg tablet extended release 24hr 10 mg PO DAILY glimepiride 2 mg tablet 2 mg PO DAILY sertraline 25 mg tablet 25 mg PO DAILY warfarin 2 mg tablet 2 mg PO .MWF furosemide 40 mg Tablet 40 mg PO DAILY 30 Days Qty: 60 2RF magnesium chloride [Mag 64] 64 mg tablet,delayed release (DR/EC) 128 mg PO DAILY Cinnamon 2 tab PO BID warfarin 3 mg tablet 3 mg PO SUTUTHSA gabapentin 100 mg capsule 100 mg PO BID Qty: 0 0RF metoprolol succinate 50 mg tablet extended release 24 hr 50 mg PO BID Qty: 1 0RF potassium chloride 20 mEq tablet extended release 20 meq PO QDAY losartan 100 mg tablet 100 mg PO QDAY Qty: 90 3RF amlodipine 10 mg tablet 10 mg PO .COMPLEX Qty: 90 3RF Rx Instructions: 10 mg orally DAILY: this is a dose increase, pt was using up her 5mg tablets to = 10 mg. Pt is out of med and is in store now. PLEASE FILL, thank you!!; Primary Care Provider: Kierra Santiago Referrals: Kierra Santiago MD [Primary Care Provider] - Print Language: Estonian Disposition Disposition: Acute Care Hospital [facility] What to do if you have Problems For any increased pain, shortness of breath, bleeding, nausea or vomiting, chestpain, or any unexpected problems, contact your Primary Care Provider. Call [facility] ([phone]) or report tothe closest Emergency Room. Call 911 if necessary. 10/08/24 0112 Cosigner Signature (if applicable): CC: Dr. Kierra Santiago MD ~ Signed [facility]06-09-2025 History and physical note [facility] Medical Records Department [address] [place] [address] H&P Exam - Hospitalist 10/07/24 2342 MR#: [id number] Acct: [id number] Name: JAROD PRITCHARD Rep #:[id number] : 1940 83 From: Kelsie Muñoz MD PCP: Dr. Kierra Santiago MD Status:AD M IN [facility] H[facility] - General General Date of Admission: [...] with no gross lesions presents to the [facility] ED on 10/07/2024 with history of [...] in appearance for the last 1 to 2weeksbut she does note she is on chronic iron supplementation also but it certainly changed in color from previous. Patient and spouse also report recentat least 1 week history of mild orthopnea and coughwith frothy sputum in addition to her recent increased swelling of her lower extremities. Workup inthe ED included T98.3, heart rate 69, BP [...] 140, troponin 46,NT proBNP II 2304, chest x-ray with trace pleural effusion and mild cardiomegaly, [...] except + very stage ecchymoses, abrasion, bilateral lowerextremity venous stasis skin changes. CARDIOVASCULAR: + Recent [...] no icterus, no cyanosis except occasional stage ecchymoses,abrasion, bilateral lower extremity venous stasis skin changes. [...] of bilateral lower quadrants but no rebound orguarding, right greater than left, mildly distended,tympanitic, hyperactive BS, no appreciated HSM.No specific focal epigastric discomfort. Extremities: No cyanosis, no clubbing, pedal to mid aguirre 2+ pitting edema, rightgreater than left secondary to previous intervention history. Neurological: Patient awake, alert, oriented as noted, cognitive function intact; pupils equally reactive to light and accommodation, cranial nerves grossly normal, moving all 4 extremities, no focaldeficits, strength severely globally decreased. Psychiatric: Affect appears [...] (Auto) 71.8 H, Lymph %(Auto) 18.2 L, [place] % (Auto) 8.9, Eos % (Auto) 0.4, Baso % (Auto) 0.3, Absolute Neuts (auto) 5.3, Absolute Lymphs (auto) 1.35, Nucleated RBC % 1.5, DifferentialComment SCANNED, Platelet Estimate ADEQUATE, Polychromasia 2+, Anisocytosis 2+, PT 29.4 H, INR 2.7, Woxkem578, Potassium 3.9, Chloride 102, Carbon Dioxide 16.2L, [...] pleural effusion and mild cardiomegaly. Reading Location: [facility] Assessment & Plan Assessment/Plan (1) Acute upper [...] with no gross lesions presents to the [facility] ED on 10/07/2024 with history of [...] in appearance for the last 1 to 2weeksbut she does note she is on chronic [...] overload with FFP and PRBCadministration with IV Lasixin between, will continue serial H&H assessment, maintain on IV Protonix drip, n.p.o. status, gastroenterology consult and evaluation pending. Once amenable per GI would immediately start heparindrip ifamenable and restart antiplt therapy once allowed [...] regimen, monitor I/Os, patient unable to tolerate juan j wraps of note thus will defer, most [...] follow-up R TMA 03/15/2024. Per family, unfortunately occurredwhen she had to be off Coumadin thus as noted above wouldbenefit greatly from immediate restart of at least a heparin drip once cleared by gastroenterology and antiplatelet therapy once amenable also. As noted temporally holding Plavix, Coumadin with FFP being administered with repeat INR followingand in a.m., continue hypertensive regimen, continue statin therapy. #6. Carotid disease: Status post endarterectomy, temporarily holding Plavix, Coumadin with FFP being administered with repeat INR following and in a.m., continue hypertensive regimen, continue statintherapy. #7. History of TIA: As noted temporally holding Plavix, Coumadin, continue hypertensive regimen, statin therapy, temporarily holding oral diabetic regimen with insulin sliding scale as noted. #8. Hypertension: Continue home regimen including losartan, metoprolol, amlodipine, oral Lasix withIV post Lasix as noted above, PRN hydralazine. [...] difference between FULL code, DNR-CCA and DNR-CC status.Following discussions about the differences in these status, requested following lengthy discussionand several examples eventually Full Code status. Per they had apparently been DNR CCA in the past but it is unclear if they understood with this fully manage following current discussions. Advanced Care Planning Face to Face Time: 16 minutes. Charges/Coding Visit Charges Inpatient E&M: 82236 Init Hosp L3 Procedures Hospitalists Procedures: 47670 Advncd Care Plan 30 Min 10/08/24 0032 Cosigner Signature (if applicable): CC: Dr. Kelsie Muñoz MD; Dr. Kierra Santiago MD~ Signed [facility]06-08-2025 Radiology Diagnostic study note [facility] Imaging Services [address] [place], [place] [id number] Chest PA and Lateral MR#: [id number] Acct: [id number] Name: JAROD PRITCHARD Rep #: [id number] : 1940 F 83 From: Carolyn Montemayor MD PCP: Dr. Kierra Santiago MD Status: RE G ER Study:Chest PA and Lateral Date of Exam: 10/07/24 Exam# [id number] Ordering Dr: Di Fabian MD PROCEDURE: CHEST [...] pleural effusion and mild cardiomegaly. Reading Location: [id number] CC: Dr. Matheus Fabian MD; Dr. Kierra Santiago MD ~ Heavy Equipment Rental Associate: Signed [facility]06-02-2025 Radiology Diagnostic study note [facility] Imaging Services [address] [place] [id number] CTA Head AND Neck W/ Contrast MR#: [id number] Acct: [id number] Name: JAROD PRITCHARD Rep #: [id number] : 1940 F 83 From: Julian Phillips MD PCP: Dr. Kierra Santiago MD Status: RE G CLI Study:CTA Head AND Neck W/ Contrast Date of E xam: 10/01/24 Exam# [id number] Ordering Dr: Dejan Crowell PA PROCEDURE: CTA HEAD AND NECK W/ CONTRAST [...] the proximal right internal carotid artery with stonagiletbpy96% stenosis. Atherosclerosis of the left proximal internal carotid artery with approximately 75% stenosis. Atherosclerosis of the origins ofthe bilateral vertebral arteries without significant stenosis. Atherosclerosis of the carotid siphons. The cvpvyr-zf-Nkguiz is patent. The anterior cerebral, anterior communicating, [...] atherosclerosis without hemodynamically significant stenosis. Reading Location: [id number] CC: COLTON Wetzel; Dr. Kierra Santiago MD ~ Heavy Equipment Rental Associate: Signed [facility]05-13-2025 NoteHNO ID: [id number] Author: IWONA DONATO RN Service: ? Author Type: Registered Nurse Type: Progress Notes Filed: 09/11/2024 18:11 Note Text[facility] of Present illness Narrative* Iwona Donato RN - 09/11/2024 6:11 PM EDT pcp agrees with information * Iwona Donato RN - 09/11/2024 10:32 AM EDT patient had inr completed at [facility] patients inr is 2.8 (patients inr range [...] for follow up INR. [facility] NoteHNO ID: [id number] Author: IWONA DONATO RN Service: ? Author Type: Registered Nurse Type: Progress Notes Filed: 09/11/2024 18:11 Note Text: patient had inr completed at [facility] patients inr is 2.8 (patients inr range [...] in 4 weeks (10/09/24) for follow up INR.[facility]04-[facility] Evaluation note* Diagnosis Onset Date Resolution Status Admit Date Gastric ulcer resolved August 22, 2024 11:25am GERD (gastroesophageal reflu x disease) acute October 07, 2024 1 1:42pm Iron deficiency anemia acute Ju 2024 11:42pm ABLA (acute blood loss anemia) resol fatemeh October 07, 2024 11:42pm Acute upper GI bleed resolved October 07, 2024 11:42pm Chest pain resolved October 07, 2024 11:42pm Gastric ulcer resolved October 07, 2 025 11:42pm GI bleed resolved October 07, 2024 11:42pm HFrEF (heart failure with reduced ejection fraction) resolved October 07, 2024 11:42pm Subendocardial ischemia resolved J une 2024 11:42pm Warfarin-induced coagulopathy resolv ed October 07, 2024 11:42pm (HFpEF) heart failure with preserved ejection fraction inactive October 07, 2024 11:42pm Aortic valve stenosis inactive Ta e 2024 11:42pm Atrial fibrillation inactive October 07, 2024 11:42pm Factor V Leiden inactive October 07, 2024 11:42pm Hypertension inactive October 07 11:42pm Pleural effusion, left inactive Ju ne 2024 11:42pm [facility] [employer] Work Phone: 1(537) 462-608804-23-2025 Evaluation note* Diagnosis Onset Date Resolution Status Admit Date Gastric ulcer resolved August 22, 2024 11:25am GERD (gastroesophageal reflu x disease) acute October 07, 2024 1 1:42pm Iron deficiency anemia acute Ju ne 2024 11:42pm Aortic valve stenosis chronic Ta e 2024 11:42pm ABLA (acute blood loss anemia) resol fatemeh October 07, 2024 11:42pm Acute upper GI bleed resolved October 07, 2024 11:42pm Chest pain resolved October 07, 2024 11:42pm Gastric ulcer resolved October 07 11:42pm GI bleed resolved October 07, 2024 11:42pm HFrEF (heart failure with reduced ejection fraction) resolved October 07, 2024 11:42pm Subendocardial ischemia resolved J une 2024 11:42pm Warfarin-induced coagulopathy resolv ed October 07, 2024 11:42pm (HFpEF) heart failure with preserved ejection fraction inactive October 07, 2024 11:42pm Atrial fibrillation inactive October 07, 2024 11:42pm Factor V Leiden inactive October 07, 2024 11:42pm Hypertension inactive October 07 11:42pm Pleural effusion, left inactive Ju ne 2024 11:42pm Carotid artery disease chronic Ju ly 2024 1:48pm Anticoagulant long-term use chronic December 13, 2024 9:22am Aortic valve stenosis chronic Nov us2024 9:22am Chronic a-fib chronic November 9:22am Hyperlipidemia chronic November 9:22am Peripheral vascular disease chronic December 13, 2024 9:22am [facility] Work Phone: 1(822) 619-790004-23-2025 [facility]04-22-2025 NoteHNO ID: [id number] Author: IWONA DONATO RN Service: ? Author Type: Registered Nurse Type: Progress Notes Filed: 08/21/2024 16:09 Note Text: [facility]25 History of Present illness Narrative* Iwona Donato RN - 08/21/2024 4:09 PM EDT pcp agrees with information * Iwona Donato RN - 08/21/2024 12:02 PM EDT patient had inr completed at [facility] CC patients inr is 1.8 (patients inr range [...] for follow up INR. documented in this encounterW[facility]04-22-2025 NoteHNO ID: [id number] Author: IWONA DONATO RN Service: ? Author Type: Registered Nurse Type: Progress Notes Filed: 08/21/2024 16:09 Note Text: patient had inr completed at [facility] patients inr is 1.8 (patients inr range [...] in 3 weeks (09/11/24) for follow up INR.[facility]04-07-2025 Telephone encounter Note* Telephone Encounter - María Zelaya - 08/06/2024 11:17 AM EDT Prescription Refill Information The patient [...] María Petty August 06, 2024 11:17 AM [facility]04-07-2025 Miscellaneous Notes* Telephone Encounter - María Zelaya - 08/06/2024 11:17 AM EDT Prescription Refill Information The patient [...] 06, 2024 11:17 AM documented in this encounterWooster [facility]04-03-2025 NoteHNO ID: [id number] Author: IWONA DONATO RN Service: ? Author Type: Registered Nurse Type: Progress Notes Filed: 08/02/2024 16:40 Note Text: pcp agreesPark[facility] Health04-03-2025 History of Present illness Narrative* Iwona Donato RN - 08/02/2024 4:40 PM EDT pcp agrees * Iwona Donato RN - 07/31/2024 10:00 AM EDT patient had inr completed at [facility] patients inr is 2.9 (patients inr range [...] for follow up INR. documented in this encounterW[facility]04-01-2025 Telephone encounter Note * Telephone Encounter - Anastasiia Colón APRN.CNS - 07/31/2024 12:05 PM EDT ok [facility]04-01-2025 Miscellaneous Notes* Telephone Encounter - Anastasiia Colón APRN.CNS - 07/31/2024 12:05 PM EDT ok * Telephone Encounter - Iwona Donato RN - 07/31/2024 10:03 AM EDT patients orders for coumadin clinic inr's has at this time. new order has been pended for approval if possible so that patient can continue to get inr's completed thru the coumadin clinic. coumadin clinic nurse only needs called if order can not be approved. documented in this encounterW[facility]04-01-2025 Telephone encounter Note * Telephone Encounter - Iwona Donato RN - 07/31/2024 10:03 AM EDT patients orders for coumadin clinic inr's has at this time. new order has been pended for approval if possible so that patient can continue to get inr's completed thru the coumadin clinic. coumadin clinic nurse only needs called if order can not be approved. [facility]04-01-2025 NoteHNO ID: [id number] Author: IWONA DONATO RN Service: ? Author Type: Registered Nurse Type: Progress Notes Filed: 08/02/2024 16:40 Note Text: patient had inr completed at [facility] patients inr is 2.9 (patients inr range [...] in 3 weeks (08/21/24) for follow up INR.[facility]03-18-2025 Telephone encounter Note* Telephone Encounter - Le Porras - 07/17/2024 3:44 PM EDT Prescription Refill Information The patient has [...] Le Porras July 17, 2024 3:45 PM [facility]03-18-2025 Miscellaneous Notes* Telephone Encounter - Le Porras - 07/17/2024 3:44 PM EDT Prescription Refill Information The patient has [...] 17, 2024 3:45 PM documented in this encounterWooster [facility] Hospital03-18-2025 NoteHNO ID: [id number] Author: ANASTASIIA COLÓN APRN.CNS Service: ? Author Type: Nurse Specialist Type: Progress Notes Filed: 07/17/2024 16:36 Note Text: Continue with Coumadin dose unchanged and check INR in 2 weeksParkview Health03-18-2025 History of Present illness Narrative* Anastasiia Colón APRN.CNS - 07/17/2024 2:31 PM EDT Continue with Coumadin dose unchanged and check INR in 2 weeks * Iwona Donato RN - 07/17/2024 12:07 PM EDT patient had inr completed at [facility] CC patients inr is 2.1 (patients inr range [...] reading since dose change documented in this encounterWooster [facility]03-18-2025 NoteHNO ID: [id number] Author: IWONA DONATO RN Service: ? Author Type: Registered Nurse Type: Progress Notes Filed: 07/17/2024 16:36 Note Text: patient had inr completed at [facility] CC patients inr is 2.1 (patients inr range [...] is the first normal reading since dose changeParkview Health03-18-2025 History of Present illness Narrative* Anastasiia Colón APRN.BLUEPRINT MAKER - 07/17/2024 10:00 AM EDT SUBJECTIVE: Diabetic Foot Exam due on 08/10/2023 Advance Directive Discussion due on 05/02/2024 HbA1C due on 06/28/2024 HPI Jarod Pritchard is a 83 year old female. [...] her previous visit: She was admitted to [facility] March 19 through April 05. [facility] of osteomyelitis and wet gangrene [...] rehab for debility. Discharged to home with [facility] home care. Today reports eating and drinking normally. No bowel or bladder complaints. She has [place] home health care coming out to her home. She has an appointment coming up with her glass washer Dr. Blanca. She reports no upcoming appointment [...] membrane normal. Nose: Rhinorrhea present. Mouth/Throat: Lips: [employer]. Mouth: Mucous membranes are moist. Pharynx: Oropharynx [...] at 2.9 on 07/10 per cardiology at [facility] Keep - BASIC METABOLIC PANEL 3. . [...] 6 mo follow up MD Anastasiia Wilson APRN.BLUEPRINT MAKER Medical Decision Making: Problems: Moderate: 2+ stable chronic illnesses Data: Unique test(s) ordered: 3+ Risk: Moderate: Drug management Medical Decision Making Level: 4 - Moderate documented in this encounterWooster [facility]03-18-2025 NoteHNO ID: [id number] Author: ANASTASIIA COLÓN APRN.BLUEPRINT MAKER Service: ? Author Type: Nurse Specialist Type: Progress Notes Filed: 07/17/2024 10:47 Note Text: SUBJECTIVE: Diabetic Foot Exam due on 08/10/2023 Advance Directive Discussion due on 05/02/2024 HbA1C due on 06/28/2024 HPI Jarod Pritchard is a 83 year old female. [...] her previous visit: She was admitted to [facility] March 19 through April 05. She [...] rehab for debility. Discharged to home with [facility] home care. Today reports eating and drinking normally. No bowel or bladder complaints. She has [place] home health care coming out to her home. She has an appointment coming up with her glass washer Dr. Blanca. She reports no upcoming appointment [...] check circulation [facility]. Notes taking furosemide QD to BID, [...] kg (141 lb 1.5 oz) BMI 25.40 kg/m? Physical Exam Vitals and nursing note reviewed. Constitutional: Appearance: Normal appearance. HENT: Head: Normocephalic and atraumatic. Right Ear: Tympanic membrane and ear canal normal. Left Ear: Tympanic membrane normal. Nose: Rhinorrhea present. Mouth/Throat: Lips: [employer]. Mouth: Mucous membranes are moist. Pharynx: Oropharynx [...] gabapentin (NEURONTIN) 100 mg capsule Take 1 caps (more content not included)... [facility]03-12-2025 Telephone encounter Note* Telephone Encounter - Warner Atkins LPN - 07/11/2024 9:24 AM EDT Home care Certification Form 485 received from [facility]. For cert dates 05/03/24-07/01/24 that were signed on 06/20/24. New Certification Patient's home health 485 form / care plan for stated certification period reviewed and signed. Relevant medical records were reviewed. No changes were indicated [facility]03-12-2025 Miscellaneous Notes* Telephone Encounter - Warner Atkins LPN - 07/11/2024 9:24 AM EDT Home care Certification Form 485 received from [facility]. For cert dates 05/03/24-07/01/24 that were signed on 06/20/24. New Certification Patient's home health 485 form / care plan for stated certification period reviewed and signed. Relevant medical records were reviewed. No changes were indicated documented in this encounterWo[facility]03-06-2025 NoteHNO ID: [id number] Author: IWONA DONATO RN Service: ? Author Type: Registered Nurse Type: Progress Notes Filed: 07/05/2024 16:08 Note Text: PATIENT NOTIFIED OF INFORMATIONParkview Health03-06-2025 History of Present illness Narrative* Iwona Donato RN - 07/05/2024 4:08 PM EST PATIENT NOTIFIED OF INFORMATION * Anastasiia Colón APRN.AMBROSIO - 07/05/2024 3:39 PM EST Recommend Coumadin 6 mg today then Coumadin 3 mg Tuesday; 2 mg all other days. Check INR in 2 weeks. * Iwona Donato RN - 07/05/2024 12:09 PM EST patient had inr completed at [facility] CC patients inr is 1.3 (patients inr range [...] in diet recommend: patient changes coumadin 2mg Tue,Wed,Tue and 3mg all other days and recheck in 2 weeks patient has been scheduled for a 2 week follow up inr on 07/17/24 - patient has appt with [facility] COVERER also this days please review and advise on recommendation patient only needs called if provider does not agree with recommendation documented in this encounterWooster [facility]03-06-2025 NoteHNO ID: [id number] Author: ANASTASIIA COLÓN APRN.CNS Service: ? Author Type: Nurse Specialist Type: Progress Notes Filed: 07/05/2024 16:08 Note Text: Recommend Coumadin 6 mg today then Coumadin 3 mg Tuesday; 2 mg all other days. Check INR in 2 weeks.[facility]03-06-2025 Note HNO ID: [id number] Author: IWONA DONATO RN Service: ? Author Type: Registered Nurse Type: Progress Notes Filed: 07/05/2024 16:08 Note Text: patient had inr completed at [facility] patients inr is 1.3 (patients inr range is 2.0-3.0) patient is currently taking 3mg Tues,Thurs,Sun and 2mg all other days patients last dose change was on 06/28/24 due to a low level of 1.3 (dose at that time was 3mg Th,Tue and 2mg all other days) patient has [...] on 07/17/24 - patient has appt with ASBESTOS COVERER also this days please review and advise on recommendation patient only needs called if provider does not agree with recommendation [facility]02-27-2025 Telephone encounter Note* Telephone Encounter - Kierra Santiago MD - 06/28/2024 8:05 PM EST The following approved medication requests have been transmitted electronically. Requested Prescriptions Pending Prescriptions Disp Refills metoprolol succinate ER (TOPROL XL) 50 mg 24 hr tablet 180 tablet 3 Sig: Take 1 tablet by mouth two times a day. Kierra Santiago MD [facility]02-27-2025 Miscellaneous Notes* Telephone Encounter - Kierra Santiago MD - 06/28/2024 8:05 PM EST The following approved medication requests have been transmitted electronically. Requested Prescriptions Pending Prescriptions Disp Refills metoprolol succinate ER (TOPROL XL) 50 mg 24 hr tablet 180 tablet 3 Sig: Take 1 tablet by mouth two times a day. Kierra Santiago MD * Telephone Encounter - PorrasLe - 06/28/2024 8:51 AM EST PATIENT REPORTS PREVIOUS SIG WAS INCORRECT. SHE [...] 28, 2024 8:55 AM documented in this encounterWooster [facility] Hospital02-27-2025 NoteHNO ID: [id number] Author: IWONA DONATO RN Service: ? Author Type: Registered Nurse Type: Progress Notes Filed: 06/28/2024 16:31 Note Text: PATIENT NOTIFIED OF INFORMATIONParkview Health02-27-2025 History of Present illness Narrative* Iwona Donato RN - 06/28/2024 4:31 PM EST PATIENT NOTIFIED OF INFORMATION * Anastasiia Colón APRN.CNS - 06/28/2024 11:21 AM EST Recommend Coumadin 3 mg Tuesday and and 2 mg all other days and check INR in 1 week. * Iwona Donato RN - 06/28/2024 10:52 AM EST patient had inr completed at [facility] patients inr is 1.3 (patients inr range is 2.0-3.0) patient is currently taking 3mg Thurs,Sun and 2mg all other days patients last dose change was on 05/17/24 unknown reason patient has had a change in medication as patient is currently on vancomycin and no missed coumadindoses and no change in diet recommend: patient change coumadin to 3mg Tues,Thur, Sun and 2mg all other days and recheck in 1 week patient has been scheduled for a 1 week follow up inr on 07/05/24 please review and advise on recommendation patient only needs called if provider does not agree with recommendation documented in this encounterW[facility]02-27-2025 NoteHNO ID: [id number] Author: ANASTASIIA COLÓN APRN.BLUEPRINT MAKER Service: ? Author Type: Nurse Specialist Type: Progress Notes Filed: 06/28/2024 16:31 Note Text: Recommend Coumadin 3 mg Tuesday and and 2 mg all other days and check INR in 1 week.[facility]02-27-2025 NoteHNO ID: [id number] Author: IWONA DONATO RN Service: ? Author Type: Registered Nurse Type: Progress Notes Filed: 06/28/2024 16:31 Note Text: patient had inr completed at [facility] patients inr is 1.3 (patients inr range [...] if provider does not agree with recommendation [facility]02-27-2025 Telephone encounter Note* Telephone Encounter - Le Porras - 06/28/2024 8:51 AM EST PATIENT REPORTS PREVIOUS SIG WAS INCORRECT. SHE [...] Le Porras June 28, 2024 8:55 AM [facility]02-13-2025 NoteHNO ID: [id number] Author: SAVANAH HAIDER APRN.CNP Service: ? Author Type: Nurse Practitioner Type: Progress Notes Filed: 06/14/2024 10:45 Note Text: Agree with anticodelfina's recommendationsParkview Health02-13-2025 History of Present illness Narrative* Savanah Haider APRN.CNP - 06/14/2024 10:45 AM EST Agree with anticodelfina's recommendations * Iwona Donato RN - 06/14/2024 10:42 AM EST patient had inr completed at [facility] patients inr is 2.7 (patients inr range [...] for follow up INR. documented in this encounterW[facility]02-13-2025 NoteHNO ID: [id number] Author: IWONA DONATO RN Service: ? Author Type: Registered Nurse Type: Progress Notes Filed: 06/14/2024 10:45 Note Text: patient had inr completed at [facility] patients inr is 2.7 (patients inr range [...] in 2 weeks (06/28/24) for follow up INR.[facility]02-11-20[facility] Evaluation note* Diagnosis Onset Date Resolution Status Admit Date Carotid artery disease acute Fe bru2024 8:31am Diarrhea acute June 12, 2024 8:31am Peripheral vascular disease chronic June 12, 2024 8:31am Diarrhea acute June 19, 2024 8:20am Gastric ulcer acute June 192024 8:20am GERD (gastroesophageal reflu x disease) acute June 19 025 8:20am Anticoagulant long-term use chronic June 20, 2024 9:53am Aortic valve stenosis chronic Feb [place] 2024 9:53am Chronic a-fib chronic June 202024 9:53am Hyperlipidemia chronic June 022024 9:53am Peripheral vascular disease chronic June 20, 2024 9:53am Gastric ulcer acute August 22, 2024 11:25am [facility] Work Phone: 1(675) 170-599402-11-2025 Evaluation note* Diagnosis Onset Date Resolution Status [...] ne 2024 11:57pm Subendocardial ischemia acute J une 2024 11:57pm Warfarin-induced coagulopathy acute October 07, 2024 11:57pm [facility] Work Phone: 1(841) 798-249502-11-2025 Evaluation note* Diagnosis Onset Date Resolution Status Admit Date Carotid artery disease acute Fe bruary 2024 [...] blood loss anemia) acute October 07, 2024 11:42pm Acute upper GI bleed acute October 07, 2024 11:42pm Atrial fibrillation acute October 07, 2024 11:42pm Chest pain acute October 07, 2024 11:42pm Factor V Leiden acute October 07, 2024 11:42pm HFrEF (heart failure with reduced ejection fraction) acute October 07, 2024 11:42pm Pleural effusion, left acute Ju ne 2024 11:42pm Subendocardial ischemia acute J une 2024 11:42pm Warfarin-induced coagulopathy acute October 07, 2024 11:42pm Aortic valve stenosis chronic Ta e 2024 11:42pm Hypertension chronic October 07 11:42pm [facility] Work Phone: 1(367) 762-846502-11-2025 Evaluation note* Diagnosis Onset Date Resolution Status Admit Date Carotid artery disease acute Fe bru2024 8:31am Diarrhea acute June 12, 2024 8:31am Peripheral vascular disease chronic June 12, 2024 8:31am Diarrhea acute June 19, 2024 8:20am Gastric ulcer acute June 192024 8:20am GERD (gastroesophageal reflu x disease) acute June 19 8:20am Anticoagulant long-term use chronic June 20, 2024 9:53am Aortic valve stenosis chronic Feb ru2024 9:53am Chronic a-fib chronic June 202024 9:53am Hyperlipidemia chronic June 022024 9:53am Peripheral vascular disease chronic June 20, 2024 9:53am Gastric ulcer acute August 22, 2024 11:25am (HFpEF) heart failure with preserved ejection fraction acute October 07, 2024 11:42pm ABLA (acute blood loss anemia) acute October 07, 2024 11:42pm Acute upper GI bleed acute October 07, 2024 11:42pm Atrial fibrillation acute October 07, 2024 11:42pm Chest pain acute October 07, 2024 11:42pm Factor V Leiden acute October 07, 2024 11:42pm Gastric ulcer acute October 07 11:42pm GI bleed acute October 07, 2024 11:42pm Pleural effusion, left acute Ju 2024 11:42pm Subendocardial ischemia acute J 2024 11:42pm Warfarin-induced coagulopathy acute October 07, 2024 11:42pm Aortic valve stenosis chronic Sep 11:42pm Hypertension chronic October 07 11:42pm HFrEF (heart failure with reduced ejection fraction) resolved October 07, 2024 11:42pm [facility] Work Phone: 1(565) 273-468002-03-2025 NoteHNO ID: [id number] Author: TERERNCE JANE MD Service: ? Author Type: Physician Type: Progress Notes Filed: 06/04/2024 12:38 Note Text: Terrence Jane MD Interventional Cardiology [address] [place] [phone] Chief Complaint Patient presents with: Follow Up: [...] Vitals:BP 142/64 Pulse 63 Resp 12 Ht (more content not included)... [facility]02-03-[facility] History of Present illness Narrative* Terrence Jane MD - 06/04/2024 12:07 PM EST Images from the original note were not included. Terrence Jane MD Interventional Cardiology [address] [place] [phone] Chief Complaint Patient presents with: Follow Up: [...] MD Follow up planning: Follow up with [facility] Electronically signed by Terrence Jane MD on June 04, 2024, 12:07 PM The above note was partially created using a dictation recognition software. A reasonable attempt has been made to correct any errors. documented in this encounterW[facility]01-28-2025 Telephone encounter Note * Telephone Encounter - Ike Ramos RN - 05/29/2024 9:52 AM EST Patient scheduled for OV 04/04/25, spoke with patient she was able to see Dr. Rojas and no longer needs the appt with [facility]01-28-[facility] Miscellaneous Notes* Telephone Encounter - Ike Ramos RN - 05/29/2024 9:52 AM EST Patient scheduled for OV 04/04/25, spoke with patient she was able to see Dr. Rojas and no longer needs the appt with documented in this encounterWooster [facility]01-22-2025 Telephone encounter Note * Telephone Encounter - Concetta Sanchez LPN - 05/23/2024 11:59 AM EST Phoned patient and reviewed message with her and she voiced understanding by repeating back the orders. Concetta Sanchez LPN [facility]01-22-2025 Miscellaneous Notes* Telephone Encounter - Concetta Sanchez LPN - 05/23/2024 11:59 AM EST Phoned patient and reviewed message with her and she voiced understanding by repeating back the orders. Concetta Sanchez LPN * Telephone Encounter - Pal Koch MD - 05/23/2024 11:47 AM EST [...] again. Emily Bustos LPN ROUTING TO PROVIDER TOXICOLOGIST DR. KOCH. PT'S PROVIDER /TEAM IS OUT. Emily Bustos LPN documented in this encounterWooster [facility]01-22-2025 Telephone encounter Note * Telephone Encounter - Pal Koch MD - 05/23/2024 11:47 AM EST INR therapeutic. Continue current coumadin dosage and follow up in 2 weeks. [facility] Work Phone: 1(763) 377-601301-22-2025 Telephone encounter Note* Telephone Encounter - Emily [...] again. Emily Bustos LPN ROUTING TO PROVIDER TOXICOLOGIST DR. KOCH. PT'S PROVIDER /TEAM IS OUT. Emily Bustos LPN [facility]01-20-2025 Telephone encounter Note* Telephone Encounter - Jessica Raymundo RN - 05/21/2024 5:13 PM EST Patient called and notified. Jessica Raymundo RN [facility]01-20-2025 Miscellaneous Notes* Telephone Encounter - Jessica Raymundo RN - 05/21/2024 5:13 PM EST Patient called and notified. Jessica Raymundo RN * Telephone Encounter - Jessica Raymundo RN - 05/21/2024 5:12 PM EST ----- Message from Terrence Jane MD sent at 05/18/2024 5:37 PM EST ----- Normal Echo Please Inform the patient babak documented in this encounterW[facility]01-20-2025 Telephone encounter Note * Telephone Encounter - Jessica Raymundo RN - 05/21/2024 5:12 PM EST ----- Message from Terrence Jane MD sent at 05/18/2024 5:37 PM EST ----- Normal Echo Please Inform the patient babak [facility]01-16-2025 Telephone encounter Note* Telephone Encounter - Arely Townsend RN - 05/17/2024 1:30 PM EST Called and left a detailed voicemail notifying Qasim from [facility] of providers message. Clinic phone number was left in case he had any questions. Pt called and is notified of providers results and instructions. Pt voices understanding. She states she will come back to the [facility] when she doesn't have HH anymore. Updated Anticoag tracker. Arely Townsend RN [facility]01-16-2025 Miscellaneous Notes* Telephone Encounter - Arely Townsend RN - 05/17/2024 1:30 PM EST Called and left a detailed voicemail notifying Qasim from [facility] of providers message. Clinic phone number was left in case he had any questions. Pt called and is notified of providers results and instructions. Pt voices understanding. She states she will come back to the Cou[facility]in Clinic when she doesn't have HH anymore. Updated Anticoag tracker. Arely Townsend RN * Telephone Encounter - Kierra Santiago MD - 05/16/2024 7:18 PM EST Noted med adjustment per cardiology. How will patient get INR after HHN no longer following. Noted INR down again. Take 3 mg then increase to 2 mg daily except 3 mg on Sundays. INR next Tuesday * Telephone Encounter - Prerna Salgado RN - 05/16/2024 10:23 AM EST Qasim from [facility] calls and states that intermediate is extending 1 time a week x 2 weeks. Qasim also reports that patient saw Dr. Roly Herrera Forepart Laster and patient was started on losartan/hctz 100-12.5 daily. Last INR: INR (POCT) 1.5 (ext) 05/16/2024 Current dose of coumadin is: 2 mg Daily. Last date of dose change: 04/23/2024 . Previous INR (date and result): 05/09/2024 1.9 Additional Clinical Information or narrative: no No changes in Diet. No signs/symptoms of bleeding or bruising. documented in this encounterW[facility]01-15-2025 Telephone encounter Note * Telephone Encounter - Kierra Santiago MD - 05/16/2024 7:18 PM EST Noted med adjustment per cardiology. How will patient get INR after HHN no longer following. Noted INR down again. Take 3 mg then increase to 2 mg daily except 3 mg on Sundays. INR next Tuesday [facility]01-15-2025 Telephone encounter Note* Telephone Encounter - Prerna Salgado RN - 05/16/2024 10:23 AM EST Qasim from [facility] calls and states that intermediate is extending 1 time a week x 2 weeks. Qasim also reports that patient saw Dr. Roly Herrera Forepart Laster and patient was started on losartan/hctz 100-12.5 daily. Last INR: INR (POCT) 1.5 (ext) 05/16/2024 Current dose of coumadin is: 2 mg Daily. Last date of dose change: 04/23/2024 . Previous INR (date and result): 05/09/2024 1.9 Additional Clinical Information or narrative: no No changes in Diet. No signs/symptoms of bleeding or bruising. [facility]01-14-2025 Telephone encounter Note* Telephone Encounter - Kierra Santiago MD - 05/15/2024 4:16 PM EST Noted [facility]01-14-2025 Miscellaneous Notes* Telephone Encounter - Kierra Santiago MD - 05/15/2024 4:16 PM EST Noted * Telephone Encounter - Warner Atkins LPN - 05/15/2024 3:35 PM EST PATIENT NOTIFIED OF SAME. Patient is planning on getting labs done in the next couple of week at [facility]. FYI:She has a follow up with vascular [...] Thank you. Cherelle Aguillon. [facility] Telephone encounter Note * Telephone Encounter - Warner Atkins LPN - 05/15/2024 3:35 PM EST PATIENT NOTIFIED OF SAME. Patient is planning on getting labs done in the next couple of week at [facility]. 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 [facility] Telephone encounter Note* Telephone Encounter - Anastasiia Colón APRN.CNS - 05/15/2024 9:19 AM EST noted, agree [facility]01-14-2025 Miscellaneous Notes* Telephone Encounter - Anastasiia [...] Cherelle Aguillon - 05/14/2024 9:03 AM EST Jarod is calling Kierra Santiago MD today with concern regarding her BP has been running high. Shestated she usually takes Losartin with Metoprolol if her BP was running high. Please advise. Patient has been identified by name and birthdate. Duration of symptoms: N/A Person calling: self Call patient at: at home [phone] (home) [phone] (cell) Was an appointment scheduled: No Closing statement: Symptom Call: Thank you for calling [facility], your call is very important. A nurse will call in approximately 2-4 hours during business hours. If this is an emergency, please contact 911. Cherelle Aguillon documented in this encounterW[facility]01-13-2025 Telephone encounter Note * Telephone Encounter [...] a day. Authorizing Provider: KIERRA SANTIAGO MD [facility]01-13-2025 Evaluation note* Diagnosis Onset Date Resolution [...] vascular disease chronic June 20, 2024 9:53am [facility] Work Phone: [phone] Telephone encounter Note* Telephone Encounter - Noemi [...] Vascular appointment on 06/05/24. Noemi Cullen RN [facility]01-13-2025 Telephone encounter Note* Telephone Encounter - Cherelle Aguillon - 05/14/2024 9:03 AM EST Jarod is calling Kierra Santiago MD today with concern regarding her BP has been running high. Shestated she usually takes Losartin with Metoprolol if her BP was running high. Please advise. Patient has been identified by name and birthdate. Duration of symptoms: N/A Person calling: self Call patient at: at home [phone] (home) [phone] (cell) Was an appointment scheduled: No Closing statement: Symptom Call: Thank you for calling [facility], your call is very important. A nurse will call in approximately 2-4 hours during business hours. If this is an emergency, please contact 911. Cherelle Aguillon [facility]01-13-2025 Telephone encounter Note* Telephone Encounter - Cherelle [...] 07/17/2024 Please advise. Thank you. Cherelle Aguillon. [facility]01-11-2025 Telephone encounter Note* Telephone Encounter - Nallely [...] 30 days. Protocols used: Blood Pressure - [id number] [facility]01-11-2025 Miscellaneous Notes* Telephone Encounter - Nallely [...] 11:45 AM 143/74 2. ONSET: 05/10/2305/11/24 This 3. HOW: Home Blood Pressure Monitor 4. [...] 30 days. Protocols used: Blood Pressure - [id number]-QS documented in this encounterWooster [facility]01-08-2025 Telephone encounter Note * Telephone Encounter - Warner Atkins LPN - 05/09/2024 4:13 PM EST PATIENT NOTIFIED OF SAME. Message left on Qasim's voicemail with the below instructions. [facility]01-[facility] Miscellaneous Notes* Telephone Encounter - Warner Atkins LPN - 05/09/2024 4:13 PM EST PATIENT [...] 05/09/2024 11:05 AM EST Qasim, Nurse with [facility] calling with an update on patient. [...] . Noemi Cullen RN documented in this encounterWooster [facility]01-08-2025 Telephone encounter Note * Telephone Encounter [...] if they want to adjust meds otherwise. [facility]01-08-20[facility] Telephone encounter Note* Telephone Encounter - Noemi Cullen RN - 05/09/2024 11:05 AM EST Qasim, Nurse with [facility] calling with an update on patient. [...] any new orders, . Noemi Cullen RN [facility]01-07-2025 NoteHNO ID: [id number] Author: DAYLIN DELGADO, DO Service: ? Author Type: Physician Type: Progress Notes Filed: 05/08/2024 09:29 Note Text: Heart , Vascular and Thoracic [place] DEPARTMENT OF VASCULAR SURGERY OUTPATIENT VISIT DATE [...] she underwent revascularization with Dr. Rojas at [facility]. At that time she was also diagnosed [...] by mouth two times a day. Biote [place] 3+CoQ10 --30 mg of CoQ10 ALLERGIES: ALLERGIES [...] slowly increasing from 2022 and follow up aft (more content not included)...[facility]01-07-2025 History of Present illness Narrative* Daylin Delgado, - 05/08/2024 8:49 AM EST Images from the original note were not included. Heart , Vascular [facility] Thoracic [place] DEPARTMENT OF VASCULAR SURGERY OUTPATIENT VISIT DATE [...] she underwent revascularization with Dr. Rojas at [facility]. At that time she was also diagnosed [...] by mouth two times a day. Biote [place] 3+CoQ10 --30 mg of CoQ10 ALLERGIES: ALLERGIES [...] interventions and will notify the office. SIGNATURE: Daylin Delgado DO PATIENT NAME: Jarod Pritchard DATE: May 08, 2024 TIME: 8:49 AM documented in this encounterWo[facility]01-03-2025 Telephone encounter Note * Telephone Encounter - Kierra Santiago MD - 05/04/2024 1:59 AM EST Noted. Kierra Santiago MD [facility]01-03-2025 Miscellaneous Notes* Telephone Encounter - Kierra Santiago MD - 05/04/2024 1:59 AM EST Noted. Kierra Santiago MD * Telephone Encounter - Zoey Tom LPN - 04/30/2024 2:15 PM EST Le with [facility] calls to report she has to discharge pt from because of insurance change. Pt will be re-admitted to 05/02/24 under an different insurance. Zoey Tom LPN documented in this encounterW[facility]01-03-2025 Telephone encounter Note * Telephone Encounter [...] once daily. Authorizing Provider: KIERRA SANTIAGO MD [facility]01-03-[facility] Miscellaneous Notes* Telephone Encounter - Kierra [...] 03, 2024 4:05 PM documented in this encounterWooster [facility]01-02-2025 Telephone encounter Note * Telephone Encounter [...] Rios LPN May 03, 2024 4:12 PM [facility]01-02-2025 Telephone encounter Note* Telephone Encounter - Campbell Yarelis Petty - 05/03/2024 4:02 PM EST [...] does need all of these. Yarelis Garnica [facility] May 03, 2024 4:05 PM [facility]01-02-2025 Telephone encounter Note* Telephone Encounter - Bekah Vivas LPN - 05/03/2024 3:33 PM EST Qasim [facility] nurse was notified of providers message and verbalized understanding. [facility]01-02-2025 Miscellaneous Notes* Telephone Encounter - Bekah Vivas LPN - 05/03/2024 3:33 PM EST Qasim [facility] nurse was notified of providers message and verbalized understanding. * Telephone Encounter - Anastasiia Colón APRN.CNS - 05/03/2024 3:20 PM EST Monitor BP and let us know if remains elevated above 150 systolic * Telephone Encounter - Lisseth Vaughn RN - 05/03/2024 3:11 PM EST Qasim [facility] nurse calling in as pt changed [...] return call unless orders. documented in this encounterW[facility]01-02-2025 Telephone encounter Note * Telephone Encounter - Anastasiia Colón APRN.CNS - 05/03/2024 3:20 PM EST Monitor BP and let us know if remains elevated above 150 systolic [facility]01-02-20[facility] Telephone encounter Note* Telephone Encounter - Lisseth Vaughn RN - 05/03/2024 3:11 PM EST Qasim [facility] nurse calling in as pt changed [...] No need to return call unless orders. [facility]01-02-[facility] Telephone encounter Note* Telephone Encounter - Arely Townsend RN - 05/03/2024 8:08 AM EST Called and left a detailed voicemail notifying Qasim from [facility] of providers message. Clinic phone number was left in case he had any questions. Arely Townsend RN [facility]01-02-2025 Miscellaneous Notes* Telephone Encounter - Arely Townsend RN - 05/03/2024 8:08 AM EST Called and left a detailed voicemail notifying Qasim from [facility] of providers message. Clinic phone number was left in case he had any questions. Arely Townsend RN * Telephone Encounter - Kierra Santiago MD - 05/01/2024 5:11 PM EST Continue present dosing Recheck in 1 week Continue to monitor BP on present meds. Make sure patient staying hydrated. May drink 2 cups of water or other noncaffeinated fluid under 5 minute to get SBP up if gets low again under 90. * Telephone Encounter - Prerna Salgado RN - 05/01/2024 9:22 AM EST Qasim from [facility] calls with updated INR and BP. [...] bruising is getting smaller documented in this encounterWooster [facility] Hospital12-31-2024 Telephone encounter Note * Telephone Encounter - Kierra Santiago MD - 05/01/2024 5:11 PM EST Continue present dosing Recheck in 1 week Continue to monitor BP on present meds. Make sure patient staying hydrated. May drink 2 cups of water or other noncaffeinated fluid under 5 minute to get SBP up if gets low again under 90. [facility]12-[facility] Telephone encounter Note* Telephone Encounter - Prerna Salgado RN - 05/01/2024 9:22 AM EST Qasim from [facility] calls with updated INR and BP. Qasim [...] Patient reports that bruising is getting smaller [facility]12-[facility] Telephone encounter Note* Telephone Encounter - Bekah Vivas LPN - 05/01/2024 8:54 AM EST Form faxed back to [facility]12-[facility] Miscellaneous Notes* Telephone Encounter - Bekah Vivas LPN - 05/01/2024 8:54 AM EST Form faxed back to [facility] * Telephone Encounter - Kierra Santiago MD [...] When form is completed, Fax form to [phone] Form has been forwarded to Physician Desk: Dr. Khadijah Eubanks MA documented in this encounterWooster [facility] Hospital12-30-2024 Telephone encounter Note * Telephone Encounter - Kierra Santiago MD - 04/30/2024 11:56 PM EST Signed [facility]12-30-20[facility] Telephone encounter Note* Telephone Encounter - Bekah Vivas LPN - 04/30/2024 4:06 PM EST Forms at nurse's pod for signature [facility]12-30-[facility] Telephone encounter Note* Telephone Encounter - Zoey Tom LPN - 04/30/2024 2:15 PM EST Le with [facility] calls to report she has to discharge pt from because of insurance change. Pt will be re-admitted to 05/02/24 under an different insurance. Zoey Tom LPN [facility]12-29-2024 Telephone encounter Note* Telephone Encounter - Kierra Santiago MD - 04/29/2024 6:48 PM EST Verify form faxed back [facility]12-27-2024 Telephone encounter Note* Telephone Encounter - Olga Lidia Eubanks MA - 04/27/2024 10:59 AM EST Type of form: Home Health Care Orders Form received via fax When form is completed, Fax form to [phone] Form has been forwarded to Physician Desk: Dr. Khadijah Eubanks MA [facility]12-24-2024 Telephone encounter Note* Telephone Encounter - Noemi [...] has standing INR order. Noemi Cullen RN [facility]12-24-2024 Miscellaneous Notes* Telephone Encounter - Noemi Cullen [...] - 04/23/2024 11:26 AM EST Elissa with [facility] called and they saw pt today but did not do an INR. Pt has apt with Cardiology at the [facility] and Elissa will call and have pt go early and get INR done at [facility] and it will then come to Dr. Santiago to review and advise. Watch for results. Emily Bustos LPN documented in this encounterWooster [facility] Hospital12-23-2024 Telephone encounter Note * Telephone Encounter [...] of the week. INR in 1 week. [facility]12-23-[facility] Telephone encounter Note* Telephone Encounter - Romina Sawant LPN - 04/23/2024 5:47 PM EST Forwarded to Provider to review. Romina Sawant LPN [facility]12-23-2024 NoteHNO ID: [id number] Author: TERRENCE JANE MD Service: ? Author Type: Physician Type: Progress Notes Filed: 04/23/2024 15:01 Note Text: Terrence Jane MD Interventional Cardiology [address] [place] [address] [phone] Chief Complaint Patient presents with: New: was at admitted at [facility]- dx CHF and a-fib HISTORY OF PRESENT [...] HX REMV CATARACT EXTRACAP,INSERT LENS bilateral 2017 FAMILY HISTORY Problem Relation Age of Onset [...] by mouth two times a day. Biote [place] 3+CoQ10 --30 mg of CoQ10 oxybutynin ER [...] flank pain, frequency, hematuria and urgency. Musculoskeletal: Nega (more content not included)...[facility] 04-23-2024 History of Present illness Narrative* Terrence Jane MD - 04/23/2024 2:56 PM EST Images from the original note were not included. Terrence Jane MD Interventional Cardiology [address] [place] [address] [phone] Chief Complaint Patient presents with: New: was at admitted at [facility]- dx CHF and a-fib HISTORY OF PRESENT [...] by mouth two times a day. Biote [place] 3+CoQ10 --30 mg of CoQ10 oxybutynin ER [...] to correct any errors. documented in this encounterWooster [facility] Hospital12-23-2024 Telephone encounter Note * Telephone Encounter - Emily Bustos LPN - 04/23/2024 11:26 AM EST Elissa with [facility] called and they saw pt today but did not do an INR. Pt has apt with Cardiology at the [facility] and Elissa will call and have pt go early and get INR done at the [facility] and it will then come to Dr. Santiago to review and advise. Watch for results. Emily Bustos LPN [facility]12-20-2024 Telephone encounter Note* Telephone Encounter - Warner Atkins LPN - 04/20/2024 9:13 AM EST [place] and patient made aware. This encounter has been faxed to [facility]. [facility]12-20-20[facility] Miscellaneous Notes* Telephone Encounter - Warner Atkins LPN - 04/20/2024 9:13 AM EST [place] and patient made aware. This encounter has been faxed to [facility]. * Telephone Encounter - Kierra Santiago MD - 04/19/2024 6:00 PM EST Noted patient already started taking 2 mg dose yesterday. Okay 2 mg daily dose for now Recheck next Tuesday. * Telephone Encounter - Cecilio Guadarrama RN - 04/18/2024 2:32 PM EST Last [...] CM be contacted with further orders at [phone]. documented in this encounterWo[facility]12-19-2024 Telephone encounter Note * Telephone Encounter - Kierra Santiago MD - 04/19/2024 6:00 PM EST Noted patient already started taking 2 mg dose yesterday. Okay 2 mg daily dose for now Recheck next Tuesday. [facility]12-18-20[facility] Telephone encounter Note* Telephone Encounter - Cecilio Guadarrama RN - 04/18/2024 2:32 PM EST Last [...] CM be contacted with further orders at [phone]. [facility]12-17-[facility] Instructions* Patient Instructions* Anastasiia Colón APRN.CNS [...] see him Please make an appointment a [facility] documented in this encounterWooster [facility] Hospital12-17-2024 NoteHNO ID: [id number] Author: ANASTASIIA COLÓN APRN.BLUEPRINT MAKER Service: ? Author Type: Nurse Specialist Type: Progress Notes Filed: 04/17/2024 13:48 Note Text: SUBJECTIVE: RSV Vaccine(1 - 1-dose 75+ series) Never done Diabetic Foot Exam due on 08/10/2023 MAYNOR Pritchard is a 83 year old female. [...] for hospital discharge follow-up visit. She has [facility]. She was admitted to [facility] March 19 through April 05. She [...] rehab for debility. Discharged to home with [facility] home care. Today reports eating and drinking normally. No bowel or bladder complaints. She has [place] [facility] care coming out to her home. She has an appointment coming up with her glass washer Dr. Blanca. She reports no upcoming appointment [...] on 04/17/2024) docusate sodium (STOOL SOFTENER ORAL) Abdon (more content not included)... [facility]12-17-2024 History of Present illness Narrative* Anastasiia Colón, SHANNAN.BLUEPRINT MAKER - 04/17/2024 11:46 AM EST SUBJECTIVE: RSV Vaccine(1 - 1-dose 75+ series) Never done Diabetic Foot Exam due on 08/10/2023 MAYNOR Pritchard is a 83 year old female. [...] for hospital discharge follow-up visit. She has [facility]. She was admitted to [facility] March 19 through April 05. [facility] of osteomyelitis and wet gangrene [...] rehab for debility. Discharged to home with [facility] home care. Today reports eating and drinking normally. No bowel or bladder complaints. She has [place] home [facility] care coming out to her home. She has an appointment coming up with her glass washer Dr. Blanca. She reports no upcoming appointment [...] (Patient not taking: Reported on 04/17/2024) argin/glut/CaHMB/collag/mv-min (BUSTER, WITH COLLAGEN, ORAL) Take by mouth. (Patient not taking: Reported on 04/17/2024) losartan (COZAAR) 50 mg tablet Take 1 tablet by mouth once daily. (Patient not taking: Reported on 04/17/2024) spironolactone (ALDACTONE) 25 mg tablet Take 0.5 tablets by mouth once daily. (Patient not taking: Reported on 04/17/2024) Miscellaneous Medical Supply Take 1 Each by mouth two times a day. Biote [place] 3+CoQ10 --30 mg of CoQ10 cholecalciferol (VITAMIN [...] Z89.431 Healing well. To follow up with glass washer. 3. S/P femoral-popliteal bypass surgery - ICD9: [...] see him Please make an appointment a [facility] 3 mo follow up Anastasiia Colón APRN.BLUEPRINT MAKER 6 mo follow up MD Anastasiia Wilson APRN.BLUEPRINT MAKER Medical Decision Making: Problems: Moderate: Acute illness with systemic symptoms and 1+ chronic illnesses with change Data: Unique source(s) for external note(s) reviewed: 1 Unique test result(s) reviewed: 3+ Risk: Moderate: Drug management Medical Decision Making Level: 4 - Moderate documented in this encounterW[facility]12-16-2024 Telephone encounter Note * Telephone Encounter - Kierra Santiago MD - 04/16/2024 11:33 PM EST Agreeable with POC [facility]12-16-2024 Miscellaneous Notes* Telephone Encounter - Kierra Santiago MD - 04/16/2024 11:33 PM EST Agreeable with POC * Telephone Encounter - Noemi Cullen RN - 04/16/2024 2:41 PM EST Jaylan with [facility] calling with patient's Physical Therapy plan of care. PT will see patient 1x/week for 3 weeks for functional mobility training. No call back needed if provider agreeable with POC. Thank you. documented in this encounterW[facility]12-16-2024 Telephone encounter Note * Telephone Encounter - Noemi Cullen RN - 04/16/2024 2:41 PM EST Jaylan with [facility] calling with patient's Physical Therapy plan of care. PT will see patient 1x/week for 3 weeks for functional mobility training. No call back needed if provider agreeable with POC. Thank you. [facility]12-16-2024 Telephone encounter Note* Telephone Encounter - Cecilio Guadarrama RN - 04/16/2024 10:55 AM EST Call placed to patient and Qasim with [facility]. Spoke to both with verbalized understanding. Cecilio Guadarrama RN [facility]12-16-2024 Miscellaneous Notes* Telephone Encounter - Cecilio Guadarrama RN - 04/16/2024 10:55 AM EST Call placed to patient and Qasim with [facility]. Spoke to both with verbalized understanding. Cecilio Guadarrama RN * Telephone Encounter - Kierra Santiago MD - 04/16/2024 10:40 AM EST Hold today and tomorrow then get INR Tuesday as noted. Can discuss with Anastasiia tomorrow about prior coumadin dosing * Telephone Encounter - Cecilio Guadarrama RN - 04/16/2024 9:52 AM EST Last [...] Anastasiia tomorrow 04/17. Call back number is [phone]. Cecilio Guadarrama RN documented in this encounterWo[facility] Hospital12-16-2024 Telephone encounter Note * Telephone Encounter - Kierra Santiago MD - 04/16/2024 10:40 AM EST Hold today and tomorrow then get INR Tuesday as noted. Can discuss with Anastasiia tomorrow about prior coumadin dosing [facility]12-16-2024 Telephone encounter Note* Telephone Encounter - Cecilio Guadarrama RN - 04/16/2024 9:52 AM EST Last [...] Anastasiia tomorrow 04/17. Call back number is [phone]. Cecilio Guadarrama RN [facility]12-13-2024 Telephone encounter Note* Telephone Encounter - Cecilio Guadarrama RN - 04/13/2024 4:29 PM EST Call placed to Elli with [facility] and notified of below message with understanding. Cecilio Guadarrama RN [facility]12-13-2024 Miscellaneous Notes* Telephone Encounter - Cecilio Guadarrama RN - 04/13/2024 4:29 PM EST Call placed to Elli with [facility] and notified of below message with understanding. Cecilio Guadarrama RN * Telephone Encounter - Anastasiia Colón APRN.CNS - 04/13/2024 12:39 PM EST [facility] * Telephone Encounter - Cecilio Guadarrama RN - 04/13/2024 9:08 AM EST Elli with [facility] calls to request a delay in start of care for PT. Elli would like to move the visit to next week d/t patient having an appointment today. Elli requests a call back at [phone]. Cecilio Guadarrama RN documented in this encounterWooster [facility] Hospital12-13-2024 Telephone encounter Note * Telephone Encounter - Anastasiia Colón APRN.CNS - 04/13/2024 12:39 PM EST [place] [facility]12-13-2024 Telephone encounter Note* Telephone Encounter - Ceciilo Guadarrama RN - 04/13/2024 9:08 AM EST Elli with [facility] calls to request a delay in start of care for PT. Elli would like to move the visit to next week d/t patient having an appointment today. Elli requests a call back at [phone]. Cecilio Guadarrama RN [facility]12-12-2024 Telephone encounter Note* Telephone Encounter - Bekah Vivas LPN - 04/12/2024 9:37 AM EST Attempted to contact Moisés nurse with [facility] but no answer. Left providers message on secure voicemail and ask to call office and ask to speak. [facility]12-12-2024 Miscellaneous Notes* Telephone Encounter - Bekah Vivas LPN - 04/12/2024 9:37 AM EST Attempted to contact Moisés nurse with [facility] but no answer. Left providers message [...] mg daily after increase from taking 1mg Tue and 2 mg other days. Verify if [...] 04/11/2024 9:26 AM EST Moisés nurse with [facility] calling, asking if PCP saw that [...] with instructions. Please advise. documented in this encounterWooster [facility] Hospital12-12-2024 Telephone encounter Note * Telephone Encounter [...] that Qasim will recheck INR on Tuesday. [facility]12-11-2024 Telephone encounter Note* Telephone Encounter - Kierra Santiago MD - 04/11/2024 6:40 PM EST Last dose on med list is 2 mg daily coumadin. Back in January, INR was okay on 4 mg daily after increase from taking 1mg Tue and 2 mg other days. Verify if dosing since last January not accurate (ie, was taking a different dose prior to this INR1.7 instead of 2mg daily) Have her take 4 mg daily and recheck INR next Tuesday [facility]12-11-2024 Telephone encounter Note* Telephone Encounter - Romina Sawant LPN - 04/11/2024 5:58 PM EST Message copied and given to Provider to address. Romina Sawant LPN [facility]12-11-2024 Telephone encounter Note* Telephone Encounter - Stacia Bruce LPN - 04/11/2024 9:26 AM EST Moisés nurse with [facility] calling, asking if PCP saw that [...] and the patient with instructions. Please advise. [facility]12-09-2024 Telephone encounter Note* Telephone Encounter - Anastasiia Colón APRN.CNS - 04/09/2024 4:07 PM EST [place] [facility]. Should take medications as ordered at discharge. [facility]12-09-2024 Miscellaneous Notes* Telephone Encounter - Anastasiia Colón APRN.CNS - 04/09/2024 4:07 PM EST [place] [facility]. Should take medications as ordered at discharge. * Telephone Encounter - Lisseth Vaughn RN - 04/09/2024 3:39 PM EST Moisés nurse from [facility] calling as he saw pt today [...] Warfarin and Plavix. Per med list in [facility], pt has two magnesiums listed. Moisés [...] problem or any changes. documented in [facility] Telephone encounter Note * Telephone Encounter - Lisseth Vaughn RN - 04/09/2024 3:39 PM EST Moisés nurse from [facility] calling as he saw pt today [...] Warfarin and Plavix. Per med list in [facility], pt has two magnesiums listed. Moisés [...] back unless a problem or any changes. [facility]12-06-2024 NoteHNO ID: [id number] Author: BEKAH VIVAS LPN Service: ? Author Type: LICENSED NURSE Type: Progress Notes Filed: 04/10/2024 16:44 Note Text: TRANSITION CARE MANAGEMENT (TCM) INITIAL CONTACT [facility] Provider Action/FYI: Spoke with patient and she is currently still in [facility] and states will be discharged on 04/08/24. Initial contact with patient post discharge, spoke to patient. Patient identified by name and . TRANSITION CARE MANAGEMENT INITIAL OUTREACH DOCUMENTATION: No data to display SUMMARY: -Pt discharged from [facility] on . -Admitted for: Right Transmetatarsal Amputation [...] home? Yes [facility] of Present illness Narrative* Bekah VivasVERNON - 04/06/2024 10:03 AM EST Images from the original note were not included. TRANSITION CARE MANAGEMENT (TCM) INITIAL CONTACT [facility] Provider Action/FYI: Spoke with patient and she is currently still in [facility] and states will be discharged on 04/08/24. Initial contact with patient post discharge, spoke to patient. Patient identified by name and . TRANSITION CARE MANAGEMENT INITIAL OUTREACH DOCUMENTATION: No data to display SUMMARY: -Pt discharged from [facility] on . -Admitted for: Right Transmetatarsal Amputation [...] from recent hospitalization: Yes documented in this encounterW[facility] NotePatient Outreach (INTMWS) JAROD PRITCHARD ([id number]) 1940 F Date Time Provider Department 04/06/24 KIERRA SANTIAGO INTMWS During your visit today, we recorded the following information about you: Bekah Vivas LPN 04/10/2024 4:44 PM Signed TRANSITION CARE MANAGEMENT (TCM) INITIAL CONTACT [facility] Provider Action/FYI: Spoke with patient and she is currently still in [facility] and states will be discharged on 04/08/24. Initial contact with patient post discharge, spoke to patient. Patient identified by name and . TRANSITION CARE MANAGEMENT INITIAL OUTREACH DOCUMENTATION: No data to display SUMMARY: -Pt discharged from [facility] on . -Admitted for: Right Transmetatarsal Amputation [...] Yes Medical records from recent hospitalization: Yes Allergies As of Date: 04/06/2024 Noted Allergy Reaction ACCUPRIL (QUINAPRIL) 04/14/2015 16 - Unknown CALAN (VERAPAMIL) 04/14/2015 16 - Unknown CYMBALTA (DULOXETINE) 03/01/2024 5 - Intolerance Comments: dizziness LOTENSIN (BENAZEPRIL HCL) 04/14/2015 16 - Unknown SULFA (SULFONAMIDE ANTIBIOTICS) 04/14/2015 16 - Unknown Date Reviewed: 02/23/2024 Reviewed by: Anastasiia Colón APRN.BLUEPRINT MAKER - Fully Assessed Prescriptions as of 04/10/2024 - warfarin (COUMADIN) 2 mg tablet Take 2 tablets by mouth once daily. - clopidogrel (PLAVIX) 75 mg tablet Take 1 tablet by mouth once daily. - sertraline (ZOLOFT) 25 mg tablet Take 1 tablet by mouth once daily. - furosemide (LASIX) 40 mg tablet Take 1 tablet by mouth once daily. - acetaminophen (TYLENOL) 500 mg tablet EVERY 8 HOURS - gabapentin (NEURONTIN) 100 mg capsule TWICE DAILY WITH MEALS - enoxaparin (LOVENOX) 80 mg/0.8 mL Q12H - docusate sodium (STOOL SOFTENER ORAL) Take by mouth. - traMADol (ULTRAM) 50 mg tablet EVERY 8 HOURS NEEDED as needed for PAIN 1-3 - Ferrous Fumarate 325 mg (106 mg iron) tab Take by mouth. - argin/glut/CaHMB/collag/mv-min (BUSTER, WITH COLLAGEN, ORAL) Take by mouth. - metoprolol succinate ER (TOPROL XL) 50 mg 24 hr tablet Take 1 tablet by mouth once daily. - glimepiride (AMARYL) 2 mg tablet Take 1 tablet by mouth daily with breakfast. Check blood sugars daily, if remaining above 200 consistently in 2 to 4 weeks will increase the dose - losartan (COZAAR) 50 mg tablet Take 1 tablet by mouth once daily. - spironolactone (ALDACTONE) 25 mg tablet Take 0.5 tablets by mouth once daily. - Miscellaneous Medical Supply Take 1 Each by mouth two times a day. Biote [place] 3+CoQ10 --30 mg of CoQ10 - cholecalciferol (VITAMIN D-3) 5,000 unit tab Take 5,000 Units by mouth. Take 1-2 tablet daily - oxybutynin ER (DITROPAN XL) 10 mg 24 hr tablet Take 1 tablet by mouth once daily. - simvastatin (ZOCOR) 80 mg tablet Take 1 tablet by mouth daily at bedtime. - fluticasone (FLONASE) 50 mcg/actuation nasal spray Use 2 Sprays in each nostril once daily. - omeprazole (PRILOSEC) 20 mg capsule Take 1 capsule by mouth daily before breakfast. 1/2 hr before meal. - ferrous sulfate 325 mg (65 mg iron) tablet Take 325 mg by mouth. - calcium carbonate (CALCIUM 600 ORAL) Take 1,200 mg by mouth. - cinnamon bark (CINNAMON ORAL) Take 4,200 mg by mouth. - sodium chloride (AYR SALINE) 0.65 % nasal spray Use 2 Sprays in the nose as needed. - propylene glycoL (SYSTANE BALANCE) 0.6 % drop 1 Drop. 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 Left providers message on confidential voice mail [facility]12-05-2024 Miscellaneous Notes* Telephone Encounter - Bekah Vivas LPN - 04/05/2024 4:51 PM EST No answer. Left providers message on confidential voice mail * Telephone Encounter - Anastasiia Colón APRN.CNS - 04/05/2024 4:21 PM EST [facility] * Telephone Encounter - Noemi Cullen RN - 04/05/2024 11:48 AM EST Le with [facility] calling and states patient will be discharging from [facility] this Tuesday. Requesting verbal order for patient for Home Health Group Home, PT and OT. Asking if provider will sign and follow for these orders. Call Le with verbal order at [phone]. Thank you. documented in this encounterW[facility]12-[facility]-2024 Telephone encounter Note * Telephone Encounter - Anastasiia Colón APRN.CNS - 04/05/2024 4:21 PM EST OK [facility]12-05-2024 Telephone encounter Note* Telephone Encounter - Noemi Cullen RN - 04/05/2024 11:48 AM EST Le with [facility] calling and states patient will be discharging from [facility] this Tuesday. Requesting verbal order for patient for Home Health Group Home, PT and OT. Asking if provider will sign and follow for these orders. Call Le with verbal order at [phone]. Thank you. [facility]12-04-2024 [facility]11-21-2024 [facility]11-18-2024 Evaluation note* Diagnosis Onset Date Resolution Status Admit Date Allergic rhinitis acute 2023 6:10pm Anemia acute March 19, 2024 6:10pm Atrial fibrillation acute 2023 6:10pm Debility acute March 19, 2024 6:10pm Diabetes mellitus acute 2023 6:10pm Essential (primary) hypertension acute March 19, 2 024 6:10pm GERD (gastroesophageal reflu x disease) [...] gangrene of the foot resolved March 19, 2 024 6:10pm Hematoma of lower leg resolved [...] vascular disease chronic June 20, 2024 9:53am [facility] Work Phone: [phone] 224-676611-18-2024 [facility]11-18-2024 [facility]11-08-2024 Telephone encounter Note* Telephone Encounter - Kierra Santiago MD - 03/09/2024 11:52 AM EST Noted. Kierra Santiago MD [facility]11-08-2024 Miscellaneous Notes* Telephone Encounter - Kierra Santiago MD - 03/09/2024 11:52 AM EST Noted. Kierra Santiago MD * Telephone Encounter - Kisha Irizarry RN - 03/09/2024 9:09 AM EST Phoned Moisés, and given provider's message below with verbalized understanding. Moisés reports pt has only been on the sertraline for 1 week and Moisés has already noticed an improvement - better spirits. [facility] will monitor for now. 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 * Telephone [...] - 03/07/2024 3:56 PM EST Moisés with [facility] calling to report that their system shows a [id number] caution listed for patient's sertraline and warfarin. No call back needed to Moisés, unless provider has further orders or recommendation. Noemi Cullen RN documented in this encounterW[facility]11-[facility]-2024 Telephone encounter Note * Telephone Encounter - Kisha Irizarry RN - 03/09/2024 9:09 AM EST Phoned Moisés, and given provider's message below with verbalized understanding. Moisés reports pt has only been on the sertraline for 1 week and Moisés has already noticed an improvement - better spirits. Moisés will monitor for now. 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 [facility]11-07-2024 [facility]11-06-2024 Telephone encounter Note* Telephone Encounter - Kierra [...] other SSRI meds (they have slight risk). [facility]11-06-2024 Telephone encounter Note* Telephone Encounter - Noemi Cullen RN - 03/07/2024 3:56 PM EST Moisés with [facility] calling to report that their system shows a [id number] caution listed for patient's sertraline and warfarin. No call back needed to Moisés, unless provider has further orders or recommendation. Noemi Cullen RN [facility]11-02-2024 Telephone encounter Note* Telephone Encounter - Noemi Cullen RN - 03/03/2024 8:32 AM EDT Patient returned call and given provider's message below and patient verbalized understanding. Agreeable to plan. Flaco Cullen RN [facility]11-02-2024 Miscellaneous Notes* Telephone Encounter - Noemi [...] KIERRA SANTIAGO MD * Telephone Encounter - Arely Townsend RN - 03/02/2024 9:52 AM EDT Called and left a detailed voicemail notifying Qasim LEMON with [facility] of providers message. Clinic phone number was [...] the least side effects. Please send to [facility] in [place], Pt states she will be going there today. Pt declined moving her appointment withAnastasiia Colón up sooner. Arely Townsend, RN * Telephone Encounter - Kierra [...] KIERRA SANTIAGO MD * Telephone Encounter - Cecilio Guadarrama RN - 02/29/2024 12:17 PM EDT Qasim RN with [facility] calls to notify provider that patient was [...] provider would refill oxycodone prescription ordered from [facility] as she is having quite a bit of pain with the foot. Please review and advise, Cecilio Guadarrama RN documented in this encounterW[facility]11-01-2024 Telephone encounter Note * Telephone Encounter [...] once daily. Authorizing Provider: KIERRA SANTIAGO MD [facility]11-01-2024 Telephone encounter Note* Telephone Encounter - Arely Townsend RN - 03/02/2024 9:52 AM EDT Called and left a detailed voicemail notifying Qsaim LEMON with [facility] of providers message. Clinic phone number was [...] the least side effects. Please send to [facility] in [place], Pt states she will be going there today. Pt declined moving her appointment withAnastasiia Colón up sooner. Arely Townsend, RN [facility]10-31-2024 Telephone encounter Note* Telephone Encounter - [...] such as fluoxetine or sertraline or paroxetine. [facility]10-31-2024 Telephone encounter Note* Telephone Encounter - [...] for anxiety as well as the oxycodone [facility]10-31-2024 Telephone encounter Note* Telephone Encounter - [...] 7 days. Authorizing Provider: KIERRA SANTIAGO MD [facility]10-31-2024 NoteHNO ID: [id number] Author: ANASTASIIA COLÓN APRN.BLUEPRINT MAKER Service: ? Author Type: Nurse Specialist Type: Progress Notes Filed: 03/01/2024 16:26 Note Text: Recommend stop lovenox injections. Continue with coumadin 4mg daily and [facility] History of Present illness Narrative* Anastasiia Colón APRN.BLUEPRINT MAKER - 03/01/2024 12:09 PM EDT Recommend stop lovenox injections. Continue with coumadin 4mg daily and recheck in 1 week * Iwnoa Donato RN - 03/01/2024 11:07 AM EDT patient had inr completed at [facility] patients inr is 3.0 (patients inr range is 2.0-3.0) patient is currently taking lovenox twice daily and 4mg coumadin daily patients last dose change was on 02/21/24 due to [facility] discharge (previous dose was 1mg Wed and [...] not agree with recommendation documented in this encounterW[facility]10-31-2024 NoteHNO ID: [id number] Author: IWONA DONATO RN Service: ? Author Type: Registered Nurse Type: Progress Notes Filed: 03/01/2024 16:26 Note Text: patient had inr completed at [facility] patients inr is 3.0 (patients inr range is 2.0-3.0) patient is currently taking lovenox twice daily and 4mg coumadin daily patients last dose change was on 02/21/24 due to [facility] discharge (previous dose was 1mg Wed and 2mg all other days) patient has had no changes in medication except for lovenox and coumadin and no missed doses and no change in diet recommend: patient stop lovenox injection continue coumadin 4mg daily and recheck in 1 week patient has been scheduled for a 1 week follow up inr on 03/08/24 please review and advise on recommendation patient only needs called if provider does not agree with recommendation [facility]10-30-20[facility] Telephone encounter Note* Telephone Encounter - Cecilio Guadarrama RN - 02/29/2024 12:17 PM EDT Qasim RN with [facility] calls to notify provider that patient was [...] provider would refill oxycodone prescription ordered from [facility] as she is having quite a bit of pain with the foot. Please review and advise, Cecilio Guadarrama RN [facility]10-28-2024 NoteHNO ID: [id number] Author: IWONA DONATO RN Service: ? Author Type: Registered Nurse Type: Progress Notes Filed: 02/27/2024 16:44 Note Text: pcp agrees with informationPark[facility]10-28-2024 History of Present illness Narrative* Iwona Donato RN - 02/27/2024 4:44 PM EDT pcp agrees with information * Iwona Donato RN - 02/27/2024 10:20 AM EDT patient had inr completed at [facility] patients inr is 1.4 (patients inr range [...] not agree with recommendation documented in this encounterW[facility]10-28-2024 NoteHNO ID: [id number] Author: IWONA DONATO RN Service: ? Author Type: Registered Nurse Type: Progress Notes Filed: 02/27/2024 16:44 Note Text: patient had inr completed at [facility] patients inr is 1.4 (patients inr range is 2.0-3.0) patient is currently taking lovenox twice daily and restarted coumadin on (02/22) with 4mg Thurs and 2mg all other days patients last dose change was on 06/02/23 due to a low level of 1.6 (dose at that time was 1mg ,urs and 2mg all other days) patient has [...] if provider does not agree with recommendation [facility]10-25-2024 Telephone encounter Note* Telephone Encounter - Bekah Vivas LPN - 02/24/2024 4:23 PM EDT Patient notified of providers message and verbalized understanding. [facility]10-25-2024 Miscellaneous Notes* Telephone Encounter - Bekah Vivas LPN - 02/24/2024 4:23 PM EDT Patient notified of providers message and verbalized understanding. * Telephone Encounter - Bekah Vivas LPN - 02/24/2024 4:21 PM EDT ----- Message from Anastasiia Sevilla APRN.BLUEPRINT MAKER sent at 02/24/2024 4:15 PM EDT ----- Please let her know that lab work yesterday showed that she is dehydrated. Recommend decreasing lasix from twice a day dosing to once daily dosing and recheck metabolic panel in a week or 2. documented in this encounterW[facility] Hospital10-25-2024 Telephone encounter Note * Telephone Encounter - Bekah Vivas LPN - 02/24/2024 4:21 PM EDT ----- Message from Anastasiia Sevilla APRN.BLUEPRINT MAKER sent at 02/24/2024 4:15 PM EDT ----- Please let her know that lab work yesterday showed that she is dehydrated. Recommend decreasing lasix from twice a day dosing to once daily dosing and recheck metabolic panel in a week or 2. [facility]10-[facility] Telephone encounter Note* Telephone Encounter - Bekah Vivas LPN - 02/23/2024 5:12 PM EDT Client services was not able to add INR to labs already drawn. Spoke with patient and she stated INR was drawn at the lab but they were holding onto it to see if it was going to be done at coumadin clinic. feed research technician that [facility] was gone and could not confirm if this was done. Patient was given coumadin instructions and verbalized understanding. Coumadin clinice for Tuesday was schedules [facility]10-24-2024 Miscellaneous Notes* Telephone Encounter - Bekah Vivas LPN - 02/23/2024 5:12 PM EDT Client services was not able to add INR to labs already drawn. Spoke with patient and she stated INR was drawn at the lab but they were holding onto it to see if it was going to be done at coumadin clinic. feed research technician that [facility] was gone and [...] this was not scheduled. documented in this encounterW[facility]10-24-2024 Telephone encounter Note * Telephone Encounter [...] Tuesday next week, this was not scheduled. [facility]10-24-[facility] History of Present illness Narrative* Anastasiia Colón APRN.CNS - 02/23/2024 9:00 AM EDT SUBJECTIVE: Pneumococcal Vaccine: 65+(1 of 2 - PCV) Never done RSV Vaccine(1 - 1-dose 75+ series) Never done Diabetic Foot Exam due on 08/10/2023 HPI Jarod Pritchard is a 83 year old female. [...] discharge follow-up visit. She was admitted to [facility] for right foot cellulitis right lower extremity ischemia. She underwent right femoropopliteal bypass with Dr. Rojas. She was admitted to PCU with debility. Admitted for rehabilitation and strengthening prior to discharge home with . Discharged home with her on February 08, 2024. She has home health care PT OT intermediate STN wheelchair. She was discharged on both [...] a follow-up appointment with Dr. Blanca her glass washer. She needs to reschedule appointment with Dr. [...] mg iron) tab Take by mouth. argin/glut/CaHMB/collag/mv-min (BUSTER, WITH COLLAGEN, ORAL) Take by mouth. furosemide [...] by mouth two times a day. Biote [place] 3+CoQ10 --30 mg of CoQ10 tiZANidine (ZANAFLEX) [...] Abs Lymph 1.00 - 4.00 k/uL 1.87 [place]% % 10.7 Abs [place] <0.87 k/uL 0.67 Eosin% % 1.8 Abs [...] Critical limb ischemia of right lower extremity ([facility]) - ICD9: 440.22, ICD10: I70.221 (primary diagnosis) 3. Acute occlusion of artery - ICD9: 444.9, ICD10: I70.90 4. Peripheral vascular disease ([facility]) - ICD9: 443.9, ICD10: I73.9 5. History of femoropopliteal bypass - ICD9: V45.89, ICD10: Z98.890 Has upcoming appointment with vascular surgeon and imaging study scheduled. 2. Generalized weakness - ICD9: 780.79, ICD10: R53.1 - COMPREHENSIVE METABOLIC PANEL - COMPLETE BLOOD COUNT AND DIFFERENTIAL 6. 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 Has podiatry following this 7. Pressure injury of right heel, stage 2 ([facility]) - ICD9: 707.07, 707.22, ICD10: L89.612 Notes this is healing well 8. 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 Will check INR today and resume Coumadin. 9. Type 2 diabetes mellitus with diabetic polyneuropathy, without long-term current use of insulin ([facility]) - ICD9: 250.60, 357.2, ICD10: E11.42 Currently [...] Level: 4 - Moderate documented in this encounterW[facility]10-24-2024 NoteHNO ID: [id number] Author: ANASTASIIA COLÓN APRN.BLUEPRINT MAKER Service: ? Author Type: Nurse Specialist Type: Progress Notes Filed: 02/23/2024 10:21 Note Text: SUBJECTIVE: Pneumococcal Vaccine: 65+(1 of 2 - PCV) Never done RSV Vaccine(1 - 1-dose 75+ series) Never done Diabetic Foot Exam due on 08/10/2023 HPI Jarod Pritchard is a 83 year old female. [...] discharge follow-up visit. She was admitted to [facility] for right foot cellulitis right lower extremity ischemia. She underwent right femoropopliteal bypass with Dr. Rojas. She was admitted to PCU with debility. Admitted for rehabilitation and strengthening prior to discharge home with . Discharged home with her on February 08, 2024. She has home health care PT OT intermediate STN wheelchair. She was discharged on both [...] a follow-up appointment with Dr. Blanca her glass washer. She needs to reschedule appointment with Dr. Herrera cardiology. Review of Systems Constitutional: Negative. Respiratory: Negative. Cardiovascular: Negative. Endocrine: Negative. Objective BP 96/65 Pulse 77 Resp 16 Wt 62.9 kg (138 lb 10.7 oz) BMI 24.96 kg/m? Physical Exam Vitals and nursing note reviewed. [...] the right fourth toe anterior surface, black eschar right great toe covering about half of the anterior distal portion without. Foot is warm, skin pink in foot. Wearing post op showe. Skin: General: [...] mg iron) tab Take by mouth. argin/glut/CaHMB/collag/mv-min (BUSTER, WITH COLLAGEN, ORAL) Take by mouth. furosemide [...] meal. ferrous sulfate 325 mg (65 mg (more content not included)...[facility]10-[facility] Tele[facility] encounter Note* Telephone Encounter - Sheryl Reyes APRN.CNP - 02/13/2024 1:56 PM EDT Noted and agree [facility]10-14[facility]2024 Miscellaneous Notes* Telephone Encounter - Sheryl Reyes APRN.CNP - 02/13/2024 1:56 PM EDT Noted and agree * Telephone Encounter - Kisha Irizarry RN - 02/13/2024 1:36 PM EDT Lisa [facility]- reporting PT POC: will see patient 2 x's week for 3 weeks, for functional and mobility training. documented in this encounterWooster [facility] Hospital10-14-2024 Telephone encounter Note * Telephone Encounter - Kisha Irizarry RN - 02/13/2024 1:36 PM EDT Jaylan- [facility]- reporting PT POC: will see patient 2 x's week for 3 weeks, for functional and mobility training. [facility]10-[facility]20[facility] Telephone encounter Note* Telephone Encounter - Kierra Santiago MD - 02/13/2024 1:28 PM EDT Noted. Kierra Santiago MD [facility]10-14-2024 Miscellaneous Notes* Telephone Encounter - Kierra Santiago MD - 02/13/2024 1:28 PM EDT Noted. Kierra Santiago MD * Telephone Encounter - Cecilio Guadarrama RN - 02/09/2024 3:59 PM EDT Qasim calls back to let provider know that patient declined OT/ST services and will only be receiving SN/PT. Cecilio Guadarrama RN * Telephone Encounter - Arely Townsend RN - 02/09/2024 3:46 PM EDT [facility] called in and reports he [...] on the medication list. documented [facility] Telephone encounter Note * Telephone Encounter - Cecilio Guadarrama RN - 02/09/2024 3:59 PM EDT Qasim calls back to let provider know that patient declined OT/ST services and will only be receiving SN/PT. Cecilio Guadarrama RN [facility]10-10-2024 Telephone encounter Note* Telephone Encounter - Arely Townsend RN - 02/09/2024 3:46 PM EDT Mo[facility] called in and reports he [...] months. Updated this on the medication list. [facility]10-09[facility]2024 Telephone encounter Note* Telephone Encounter - Warner Atkins LPN - 02/08/2024 1:11 PM EDT Le aware of same. [facility]10-[facility] Miscellaneous Notes* Telephone Encounter - Warner Atkins LPN - 02/08/2024 1:11 PM EDT Le aware of same. * Telephone Encounter - Sheryl Reyes APRN.CNP - 02/08/2024 12:54 PM EDT Yes, we will follow, please return call. Thanks * Telephone Encounter - Prerna Salgado RN - 02/08/2024 11:16 AM EDT Le from [facility] calls and states that patient is being discharged from TCU on 02/08/2024 with the diagnosis of femoral bypass. Le asking if provider willing to follow patient with orders for intermediate, physical therapy, occupational therapy, and speech therapy. If agreeable please give Le a call back [phone]. Thank you, Prerna Salgado RN documented in this encounterW[facility]10-09-2024 Telephone encounter Note * Telephone Encounter - Sheryl Reyes APRN.CNP - 02/08/2024 12:54 PM EDT Yes, we will follow, please return call. Thanks [facility]-09[facility] Telephone encounter Note* Telephone Encounter - Prerna Salgado RN - 02/08/2024 11:16 AM EDT Le from [facility] calls and states that patient is being discharged from TCU on 02/08/2024 with the diagnosis of femoral bypass. Le asking if provider willing to follow patient with orders for intermediate, physical therapy, occupational therapy, and speech therapy. If agreeable please give Le a call back [phone]. Thank you, Prerna Salgado RN [facility]10-02-2024 [facility]27[facility] History of Present illness Narrative* Nancy Albert RN - 01/14/2024 2:48 PM EDT Transitional Care Management (TCM) Follow-Up Note PCP Update / Actionable Items N/A - No specialty updates needed Patient Source: Gyj-[id number] (OON) Discharge Outreach Summary: Pt reports she had a new issue yesterday - water blisters on her right toes that became infected. Was seen for evaluation 01/13 at [place] [facility] and rx antibiotics for 10 days. Advised pt will continue to follow up with her to see if int med f/u appt reevaluation needed. Pt states Blood glucose this Am was 123 before breakfast. Patient discharged from [facility] Discharge date: 01/05/24 Admitted for: SOB, pneumonia [...] 14, 2024 2:55 PM documented in this encounterWooster [facility]09-13-2024 History of Present illness Narrative* Nataliia [...] [facility]. Patient was okay with this care plan. Patient's will take her now. documented in this encounterW[facility]09-11-2024 Instructions* Patient Instructions* Kierra Santiago MD - 01/11/2024 5:56 PM EDT documented in this encounterWooster [facility] Hospital09-11-2024 History of Present illness Narrative* Kierra Santiago MD - 01/11/2024 5:34 PM EDT Transitional Care Management TCM Eligibility Documentation Program: Transitional Care Management Status: Enrolled Effective Dates: 01/06/2024 - present Responsible Staff: Nancy Albert RN Discharge date: 01/03/2024 (Program start) Date of initial contact: 01/06/2024 Initial contact Target status: Successful; Contact made within 2 business days post-discharge Provider Documentation Jarod Pritchard is a 83 year old female here today for a follow up from recent hospitalization. I have reviewed the patient's hospital course including discharge summary, discharge medications , and follow up needs with the patient and any family members present at today's visit. HPI Patient presents with: F/U 3 Month: Labs prior SUBJECTIVE: Jarod Pritchard is a 83 year old year old lady here today for lady [facility] follow up appointment for review of medical conditions. Patient is an 83-year-old female here [facility] follow up appointment-- presenting with footpain [...] 133. She has anupcoming appointment with a paradichlorobenzene tender on 01/23. PAST MEDICAL HISTORY No [...] by mouth two times a day. Biote [place] 3+CoQ10 --30 mg of CoQ10 cholecalciferol (VITAMIN [...] daily, Spironolactone 12.5 mg daily. - Discontinued rllo-spq-mxvpidi potassium supplementation. - Follow-up with cardiology scheduled [...] pressure daily. # Hypokalemia (E87.6) - Discontinued caqx-peg-ccjyhty potassium supplementation. - Monitoring potassium levels with [...] swelling. Kierra Santiago MD documented in this encounterW[facility]09-06-2024 History of Present illness Narrative* Kierra [...] TCM Home Visit Referral Source of Stratification: [facility] Hospital Admission Status: Discharged Readmission Risk Score: n/a Patient's zip code: [address] Is zip code within program service area: No Patient meets program referral criteria: No Patient does not qualify for High Risk TCM Home Visit program due to: Readmission Risk Score does not meet criteria Disposition: Patient does not qualify for HRTIC, will provide TCM outreach follow-up for 30-days Patient Source: [id number]-[id number] (OON) Discharge Outreach Summary: as above Patient discharged from [facility] Discharge date: 01/05/24 Admitted for: SOB, pneumonia Readmission Risk: n/a Value-Based Contract: Marley GOVEA Contact: Contact made with patient: Yes Hi, my name is Nancy Albert RN and I am calling [facility] on behalf of your Primary Care [...] like to speak with a social work seam steamer to help give you support for any [...] I will send your request to a tricot knitter who will contact and assist you with [...] 06, 2024 10:55 AM documented in this encounterWooster [facility]09-05-2024 History of Present illness Narrative* Iwona Donato RN - 01/05/2024 9:36 AM EDT patient had inr completed at [facility] patients inr is 1.9 (patients inr range is 2.0-3.0) patient is currently taking 1mg Wed and 2mg all other days patients last dose change was on 06/02/23 due to a low level of 1.6 (dose at that time was 1mg Tues,Thurs and 2mg all other days) patient has had no changes in medication and patient missed 2 doses due to was in [facility] and no changein diet Advised patient to [...] due to missed does documented in this encounterWooster [facility] Hospital08-31-2024 History of Present illness Narrative* Jean Pierre Davis PA - 12/31/2023 11:56 AM EDT I [...] EMS, her will take her now to [place] ER. documented in this encounterWooster [facility] Hospital08-30-2024 Telephone encounter Note * Telephone Encounter - Raul Andrade MA - 12/30/2023 10:44 AM EDT Can this be changed to 75 mg tab BID instead of 50 mg 1.5 tabs BID? [facility] Miscellaneous Notes* Telephone Encounter - Raul [...] 30, 2023 9:08 AM documented in this encounterWooster [facility] Hospital08-30-2024 Telephone encounter Note * Telephone Encounter [...] María Petty December 30, 2023 9:08 AM [facility] Telephone encounter Note* Telephone Encounter - Romina Sawant LPN - 12/27/2023 10:00 AM EDT Patient aware. Romina Sawant LPN [facility]08-27-[facility]24 Miscellaneous Notes* Telephone Encounter - Romina Sawant LPN - 12/27/2023 10:00 AM EDT Patient aware. Romina Sawant LPN * Telephone Encounter - Kierra Santiago MD - 12/27/2023 9:58 AM EDT Filed * Telephone Encounter - Romina Sawant LPN - 12/27/2023 9:45 AM EDT Patient at , fasting to have labwork drawn for OV on 01/11/24. No orders in EPIC at this time. Will have Provider review and file orders if needed. Call ext [phone] to update Briggitte-PSS when completed. Romina Sawant LPN documented in this encounterWooster [facility] Hospital08-27-2024 Telephone encounter Note * Telephone Encounter - Kierra Santiago MD - 12/27/2023 9:58 AM EDT Filed [facility] Telephone encounter Note* Telephone Encounter - Romina Sawant LPN - 12/27/2023 9:45 AM EDT Patient at , fasting to have labwork drawn for OV on 01/11/24. No orders in EPIC at this time. Will have Provider review and file orders if needed. Call ext [phone] to update Briggitte-PSS when completed. Romina Sawant LPN [facility]08-12-20[facility] Telephone encounter Note* Telephone Encounter - Jean Pierre Davis PA - 12/12/2023 10:28 AM EDT Called patient and let her know that chest x-ray does reveal pneumonia. She also has a lung nodule which was seen on prior CT. Patient states that her primary doctor is following the nodule. Prescribe doxycycline and Augmentin due to comorbidities. Patient will take these as prescribed. Advised if any worsening symptoms go to ER [facility]-12[facility] Miscellaneous Notes* Telephone Encounter - Jean Pierre Davis PA - 12/12/2023 10:28 AM EDT Called [...] symptoms go to ER documented in this encounterWooster [facility] Hospital08-12-2024 History of Present illness Narrative* Praful Ledesma RT(R) - 12/12/2023 10:00 AM EDT Radiology Service Progress Note PATIENT NAME: Jarod Pritchard DATE OF SERVICE: December 12, 2023 [...] PATIENT PRESENTS WITH AN IMPLANTABLE OR ATTACHED PATHOLOGY MANAGER: No RADIOLOGY DEPARTMENT: General X-ray: Exam(s) Completed: Chest X-Ray PERIPHERAL IV DATA: Not applicable SIGNED BY: RT Velvet(R) December 12, 2023 10:09 AM documented in this encounterWooster [facility] Hospital08-12-2024 Telephone encounter Note * Telephone Encounter - Ike Puri MA - 12/12/2023 7:24 AM EDT Patient given results and verbalized understanding of instructions given. Ike Puri MA [facility]08-12-2024 Miscellaneous Notes* Telephone Encounter - Ike Puri MA - 12/12/2023 7:24 AM EDT Patient given results and verbalized understanding of instructions given. Ike Puri MA * Telephone Encounter - Jean Pierre Davis PA - 12/12/2023 7:05 AM EDT Negative for COVID flu RSV documented in this encounterWooster [facility] Hospital08-12-2024 Telephone encounter Note * Telephone Encounter - Jean Pierre Davis PA - 12/12/2023 7:05 AM EDT Negative for COVID flu RSV [facility] Work Phone: 1(104) 292-578208-11-2024 History of Present illness Narrative* Jean Pierre Davis PA - 12/11/2023 10:09 AM EDT This note was created using Qwiqqriter. Subjective Jarod Pritchard is a 83 year old female. [...] ER evaluation. COLTON Abel documented in this encounterWooster [facility] Hospital08-08-2024 History of Present illness Narrative* Iwona Donato RN - 12/08/2023 3:37 PM EDT pcp agrees with information * Iwona Donato RN - 12/08/2023 11:48 AM EDT patient had inr completed at [facility] patients inr is 2.0 (patients inr range [...] for follow up INR. documented in this encounterWooster [facility] Hospital07-31-2024 History of Present illness Narrative* Cyn Romo RDMS - 11/30/2023 7:45 AM EDT Radiology Service Progress Note PATIENT NAME: Jarod Pritchard DATE OF SERVICE: November 30, 2023 [...] PATIENT PRESENTS WITH AN IMPLANTABLE OR ATTACHED PATHOLOGY MANAGER: No RADIOLOGY DEPARTMENT: Ultrasound PERIPHERAL IV DATA: Not applicable SIGNED BY: Cyn Romo RDMS November 30, 2023 8:18 AM documented in this encounterWooster [facility] Hospital07-19-2024 Instructions* Patient Instructions* Tara Benavides APRN.CNP - 11/18/2023 11:36 AM EDT [facility] GASTROENTEROLOGY [place] [id number] [facility] [place] [facility] [id number] MEDITERRANEAN DIET The Mediterranean diet blends the basics of healthy eating with the traditional flavors and cookingmethods of the Mediterranean. Interest in the Mediterranean diet began in the 1960's with the observation that coronary heart disease caused fewer deaths in the Mediterranean countries, such as [place] and [place], than in the [place] and northern [place]. [...] based on the traditional cuisines of [place], [place], and other countries that border the Mediterranean Sea. Plant based foods, such as whole grains, vegetables, legumes, fruits, nuts, seeds, herbs and spices, are the foundation of the diet. [place] oil is the main source of added fat. Fish, seafood, dairy and poultry are included in moderation. Red meat and sweets are eaten only occasionally. Healthy fast instead of unhealthy ones [place] oil is the primary source of added fat in the Mediterranean diet. [place] oil provides mono unsaturated fat, which lowers total cholesterol and low- density lipoprotein ( or bad) cholesterol levels. Nuts and seeds also contain mono unsaturated fat. Fatty fish, such as mackerel, hammonds, sardines, albacore tuna and salmon, are rich in omega-3 fatty acids, a type of polyunsaturated fat that may reduce inflammation in the body. [place]-3 fatty acidsalso help decrease triglycerides, reduce blood [...] to whole grain bread, cereal, and pasta. [place] with other whole grains, such as crow [...] small. Enjoy some dairy. Eat low fat Lithuanian or plain yogurt and small amounts of [...] per week might help. Your doctor or assembly member can give youadvice on healthy weight loss [...] are diabetic or insulin-resistant. documented in this encounterCleveland [id number] History of Present illness Narrative* Tara Benavides APRN.POPULATION HEALTH COACH - 11/18/2023 10:58 AM EDT CHIEF COMPLAINT: Patient presents with: Gas: Had 2 episodes of chest tightness This consult was requested by Anastasiia Colón APRN.BLUEPRINT MAKER for an opinion regarding abnormal liver enzymes. My final recommendations will be communicated to the requesting health care provider by way of the shared medical record for internal providers or letter via the [employer] for external providers. HPI: Jarod Pritchard is a 83 year old female [...] up in office TBD based on testing Tara Benavides APRN.CNP November 18, 2023 11:57 AM documented in this encounterWo[facility] Hospital07-16-2024 Progress note* Result Encounter Note - Anastasiia Colón APRN.CNS - 11/15/2023 8:50 AM EDT Normal stress test results [facility]07-16-2024 Miscellaneous Notes* Result Encounter Note - Anastasiia Colón APRN.CNS - 11/15/2023 8:50 AM EDT Normal stress test results documented in this encounterWooster [facility] Hospital07-15-2024 Instructions* Patient Instructions* Anastasiia Colón APRN.CNS - 11/14/2023 10:09 AM EDT Stop taking metformin Start taking glimepiride. Check your blood sugar daily. If your blood sugars remaining above 200 after 2 to 4 weeks let us know so we can increase the doseof glimepiride. documented in this encounterWooster [facility] Hospital07-15-2024 History of Present illness Narrative* Anastasiia Colón APRN.CNS - 11/14/2023 9:40 AM EDT SUBJECTIVE: Pneumococcal Vaccine: 65+(1 of 2 - PCV) Never done RSV Vaccine(1 - 1-dose 60+ series) Never done Behavioral Health Screening Never done Covid-19 Vaccine(2022-24 season) due on 06/07/2023 Diabetic Foot Exam due on 08/10/2023 Shingrix Vaccine(2 of 2) due on 12/12/2023 HPI Jarod Pritchard is a 83 year old female. [...] [facility]. [facility] [...] were negative. No evidence of ACS or MD. She was referred to follow-up with GI [...] Abs Lymph 1.00 - 4.00 k/uL 1.87 [place]% % 10.7 Abs [place] <0.87 k/uL 0.67 Eosin% % 1.8 Abs [...] Giron 6. Factor 5 Leiden mutation, heterozygous ([facility]) - ICD9: 289.81, ICD10: D68.51 Therapeutic on current treatment no bleeding difficulties followed by Coumadin clinic. Glucose much improved. Sodium approaching normal level. Improved BUN/Cr. 3 - 6 mo follow up MD Anastasiia Wilson APRN.BLUEPRINT MAKER Medical Decision Making: Problems: Moderate: 1+ chronic illnesses with change Risk: Moderate: Drug management Medical Decision Making Level: 4 - Moderate documented in this encounterW[facility]07-11-2024 History of Present illness Narrative* Iwona Donato RN - 11/10/2023 3:48 PM EDT pcp agrees with information * Iwona Donato RN - 11/10/2023 9:17 AM EDT patient had inr completed at [facility] patients inr is 2.2 (patients inr range [...] for follow up INR. documented in this encounterWo[facility]07-08-2024 Miscellaneous Notes* Telephone Encounter - Elle Ramirez MA - 11/07/2023 11:08 AM EDT Patient notified, has INR on and will repeat lab at this time. Checking BS at home and will bring monitor to appointment. * Telephone Encounter - Elle Ramirez MA - 11/07/2023 11:05 AM EDT ----- Message from Anastasiia Colón APRN.CNS sent at 11/06/2023 8:44 AM EDT ----- Glucose much improved but remains uncontrolled. Sodium approaching normal level. Improved BUN/Cr. Has OV scheduled next week, repeat labs before visit if able to do so. Check to see if taking medications as ordered, home glucose levels documented in this encounterW[facility]07-08-2024 Telephone encounter Note * Telephone Encounter - Elle Ramirez MA - 11/07/2023 11:08 AM EDT Patient notified, has INR on and will repeat lab at this time. Checking BS at home and will bring monitor to appointment. [facility]07-08-[facility] Telephone encounter Note* Telephone Encounter - Elle Ramirez MA - 11/07/2023 11:05 AM EDT ----- Message from Anastasiia Colón APRN.BLUEPRINT MAKER sent at 11/06/2023 8:44 AM EDT ----- Glucose much improved but remains uncontrolled. Sodium approaching normal level. Improved BUN/Cr. Has OV scheduled next week, repeat labs before visit if able to do so. Check to see if taking medications as ordered, home glucose levels [facility]07-05-2024 Telephone encounter Note* Telephone Encounter - [...] María Petty November 04, 2023 8:09 AM [facility] Miscellaneous Notes* Telephone Encounter - María [...] jo Petty November 04, 2023 8:09 AM documented in this encounterWooster [facility] Hospital06-24-2024 History of Present illness Narrative* Teena Workman RT(R) - 10/24/2023 3:40 PM EDT Radiology Service Progress Note PATIENT NAME: Jarod Pritchard DATE OF SERVICE: October 24, 2023 [...] PATIENT PRESENTS WITH AN IMPLANTABLE OR ATTACHED PATHOLOGY MANAGER: No RADIOLOGY DEPARTMENT: CT; Exam(s) Completed: Chest PERIPHERAL IV DATA: Not applicable SIGNED BY: RT Cas(R) October 24, 2023 3:53 PM documented in this encounterWooster [facility] Hospital06-20-2024 Telephone encounter Note * Telephone Encounter - Anastasiia Colón APRN.CNS - 10/20/2023 4:42 PM EDT Note the improvement. [facility]-20-[facility] Miscellaneous Notes* Telephone Encounter - Anastasiia [...] pt. Emily Bustos LPN documented in this encounterWooster Community Hospital06-20-2024 Telephone encounter Note * Telephone Encounter - Bekah Vivas LPN - 10/20/2023 4:33 PM EDT Patient states she is taking her medication as directed. Blood sugars have been below 250. Yesterday it was 224, today it was 236. None below 200 but she said she is trying. [facility] Telephone encounter Note* Telephone Encounter - Anastasiia Colón APRN.CNS - 10/20/2023 4:17 PM EDT Please check with her to see if she is still taking her diabetes medicines as ordered and what her blood sugar is doing [facility]06-13-20[facility] History of Present illness Narrative* Pal Koch MD - 10/13/2023 9:32 AM EDT INR therapeutic. Continue current coumadin dosage and follow up in 4 weeks. * Iwona Donato RN - 10/13/2023 9:24 AM EDT patient had inr completed at [facility] patients inr is 2.4 (patients inr range [...] for follow up INR. documented in this encounterWooster [facility] Hospital06-13-2024 Telephone encounter Note * Telephone Encounter - Iwona Donato RN - 10/13/2023 9:27 AM EDT patient was in today to have her inr checked and reported that BS was now down to 297 this morning non-fasting with the changes [facility]06-[facility] History of Present illness Narrative* Suresh Varela RN - 10/12/2023 1:49 PM EDT DIABETES CARE AND EDUCATION VISIT Location: [place] Type of visit: In person individual PATIENT'S [...] record. SIGNATURE: Suresh Varela RN PATIENT NAME: Jarod Pritchard DATE: October 12, 2023 TIME: 1:49 PM documented in this encounterWooster [facility] Hospital06-11-2024 Telephone encounter Note * Telephone Encounter - Bekah Vivas LPN - 10/11/2023 4:33 PM EDT Patient notified of providers message and verbalized understanding. Patient states she just took her BS and it is 350 and she is starting to feel better. [facility] Telephone encounter Note* Telephone Encounter - Anastasiia Colón APRN.CNS - 10/11/2023 4:27 PM EDT Verify that she took two metformin this morning. If not recommend taking now. If she did take 2 metformin this morning she can take 2 metformin with dinner as well. Endorse ER visit for any severe concerning symptoms. [facility] Telephone encounter Note* Telephone Encounter - [...] vomiting. Please advise pt. Emily Bustos LPN [facility]06-11-[facility] Telephone encounter Note* Telephone Encounter - Arely Townsend RN - 10/11/2023 9:42 AM EDT Pt called and is notified of providers results and instructions. Pt voices understanding. Put DM booklets in Medical Records for Pt to poultry picker today. Sent Pts chart to scheduling to call back and schedule with DM education. Arely Townsend RN [facility]06-11-2024 Miscellaneous Notes* Telephone Encounter - Arely Townsend RN - 10/11/2023 9:42 AM EDT Pt called and is notified of providers results and instructions. Pt voices understanding. Put DM booklets in Medical Records for Pt to poultry picker today. Sent Pts chart to scheduling to call back and schedule with DM education. Arely Townsend RN * Telephone Encounter - Anastasiia [...] as well. * Telephone Encounter - Zoey Tom LPN - 10/11/2023 8:25 AM EDT Pt [...] in sugar so has stopped that. Zoey Tom LPN * Telephone Encounter - Pal Koch MD - 10/11/2023 3:46 AM EDT [...] with patient in detail. documented in this encounterWooster [facility] Hospital06-11-2024 Telephone encounter Note * Telephone Encounter [...] go. Can mail DM booklets as well. [facility] Telephone encounter Note* Telephone Encounter - Zoey Tom LPN - 10/11/2023 8:25 AM EDT Pt [...] in sugar so has stopped that. Zoey Tom LPN [facility] Telephone encounter Note* Telephone Encounter - Pal Koch MD - 10/11/2023 3:46 AM EDT [...] ER evaluation reviewed with patient in detail. [facility] Work Phone: 1(946) 626-318006-10-2024 Instructions* Patient Instructions* Anastasiia Colón APRN.AMBROSIO - 10/10/2023 12:31 PM EDT Stay on [...] department. Recommend recheck today. Consider follow-up with scientist/engineer. I recommend a stress echocardiogram to further check regarding chest pain. I recommend a cardiology visit as well. documented in this encounterWooster [facility] Hospital06-10-2024 History of Present illness Narrative* Anastasiia Colón APRN.CNS - 10/10/2023 11:53 AM EDT SUBJECTIVE: Pneumococcal Vaccine: 65+(1 of 2 - PCV) Never done DTaP,Tdap,Td Vaccine(1 - Tdap) Never done Shingrix Vaccine(1 of 2) Never done RSV Vaccine(1 - 1-dose 60+ series) Never done Behavioral Health Screening Never done Covid-19 Vaccine( season) due on 06/07/2023 Diabetic Foot Exam due on 08/10/2023 HPI Jarod Pritchard is a 82 year old female. [...] [facility]. [facility] [...] were negative. No evidence of ACS or MD. She was referred to follow-up with GI [...] left upper lobe on chest x[facility] at [facility], CT chest for further evaluation and characterization - CT CHEST [facility] 3. Transaminitis - ICD9: 790.4, ICD10: R74.01 [...] department. Recommend recheck today. Consider follow-up with scientist/engineer. I recommend a stress echocardiogram to further check regarding chest pain. I recommend a cardiology visit as well. 4-6 week follow up with me 3 - 6 mo follow up MD Anastasiia Wilson APRN.BLUEPRINT MAKER Medical Decision Making: Problems: Moderate: Acute illness with systemic symptoms Data: Unique test(s) ordered: 1 Risk: Moderate: Drug management Medical Decision Making Level: 4 - Moderate documented in this encounterW[facility]06-[facility]24 Telephone encounter Note * Telephone Encounter - Kierra Santiago MD - 10/06/2023 9:00 AM EDT The following approved medication requests have been transmitted electronically. Requested Prescriptions Pending Prescriptions Disp Refills metFORMIN (GLUCOPHAGE) 500 mg tablet 180 tablet 1 Sig: Take 1 tablet by mouth two times a day with meals. As directed Kierra Santiago MD [facility]06-[facility] Miscellaneous Notes* Telephone Encounter - Kierra [...] Thank you. María Petty. documented in this encounterWooster [facility] Hospital06-05-2024 Telephone encounter Note * Telephone Encounter [...] 10/10/2023 Please advise. Thank you. María Petty. [facility] History of Present illness Narrative* Jeanne Delgadoeen Tee, - 10/04/2023 10:03 AM EDT Images from the original note were not included. Heart , Vascular [facility] Thoracic [place] DEPARTMENT OF VASCULAR SURGERY OUTPATIENT VISIT DATE [...] Continue blood pressure and cholesterol control SIGNATURE: Daylin Delgado DO PATIENT NAME: Jarod Pritchard DATE: October 04, 2023 TIME: 10:03 AM documented in this encounterWooster [facility]05-24-2024 History of Present illness Narrative* Nataliia [...] want to take themselves. documented in this encounterWooster [facility]05-16-2024 History of Present illness Narrative* Anastasiia Colón APRN.CNS - 09/15/2023 11:56 AM EDT Continue with Coumadin dose unchanged and check INR in 4 weeks * Iwona Donato RN - 09/15/2023 9:26 AM EDT patient had inr completed at [facility] patients inr is 2.9 (patients inr range [...] for follow up INR. documented in this encounterWooster [facility]04-18-2024 History of Present illness Narrative* Greg Tyler MD - 08/18/2023 11:03 AM EDT agree * Iwona Donato RN - 08/18/2023 9:34 AM EDT patient had inr completed at [facility] patients inr is 2.1 (patients inr range [...] for follow up INR. documented in this encounterW[facility]03-21-2024 Miscellaneous Notes* Telephone Encounter - Anastasiia [...] can not be approved. documented in this encounterWooster [facility] Hospital03-21-2024 History of Present illness Narrative* Anastasiia Colón APRN.CNS - 07/21/2023 2:02 PM EDT Continue with Coumadin dose unchanged and check INR in 4 weeks * Iwona Donato RN - 07/21/2023 11:52 AM EDT patient had inr completed at [facility] patients inr is 2.8 (patients inr range [...] for follow up INR. documented in this encounterWooster [facility] Hospital03-19-2024 Miscellaneous Notes* Telephone Encounter - Emily [...] Insurance and pharmacy verified. documented in this encounterWooster [facility] Hospital02-29-2024 History of Present illness Narrative* Anastasiia Colón APRN.CNS - 06/30/2023 12:41 PM EST Continue with Coumadin dose unchanged and check INR in 3 weeks. * Iwona Donato RN - 06/30/2023 9:48 AM EST patient had inr completed at [facility] patients inr is 3.0 (patients inr range [...] c is closed at that 4 week roxann) for follow up INR. documented in this encounterWooster [facility] Hospital02-15-2024 History of Present illness Narrative* Anastasiia Colón APRN.CNS - 06/16/2023 3:52 PM EST Continue Coumadin dose unchanged and recheck INR in 2 weeks. * Iwona Donato RN - 06/16/2023 12:10 PM EST patient had inr completed at [facility] patients inr is 2.2 (patients inr range is 2.0-3.0) patient is currently taking 1mg Wed and 2mg all other days patients last dose change was on 06/02/23 due to a low level of 1.6 (dose at that time was 1mg Tues,Th and 2mg all other days) patient has [...] reading since dose change documented in this encounterWooster [facility] Hospital02-06-2024 History of Present illness Narrative* Anastasiia Colón APRN.CNS - 06/07/2023 9:00 AM EST SUBJECTIVE: RSV Vaccine(1 - 1-dose 60+ series) Never done Advance Directive Discussion due on 05/02/2023 Depression Assessment due on 05/02/2023 HPI Jarod Pritchard is a 82 year old female. [...] DO [address] [facility] [address] Last seen: January 2022 Labwork:January 2022 ER/Hospitalization: [...] hyperglycemia, without long-term current use of insulin ([facility]) - ICD9: 250.00, 790.29, ICD10: E11.65 (primary diagnosis) 5. Type 2 diabetes mellitus with diabetic polyneuropathy, without long-term current use of insulin ([facility]) - ICD9: 250.60, 357.2, ICD10: E11.42 Controlled, continue with current treatment unchanged for now. Endorse adherence to diet, exercise as able. No change in medications at this time. 2. Peripheral vascular disease, unspecified ([facility]) - ICD9: 443.9, ICD10: I73.9 Completed ultrasound in March 2023 of carotids. 3. Factor V deficiency ([facility]) - ICD9: 286.3, ICD10: D68.2 4. Factor 5 Leiden mutation, heterozygous ([facility]) - ICD9: 289.81, ICD10: D68.51 Continue with [...] Level: 4 - Moderate documented in this encounterWooster [facility] Hospital02-01-2024 History of Present illness Narrative* Bekah Vivas LPN - 06/02/2023 4:37 PM EST Patient notified of providers message and verbalized understanding. * Anastasiia Colón APRN.CNS - 06/02/2023 4:14 PM EST Coumadin 1 mg on Tuesday and 2 mg all other days and check INR in 2 weeks. * Iwona Donato RN - 06/02/2023 9:39 AM EST patient had inr completed at [facility] patients inr is 1.6 (patients inr range [...] and advise on recommendation documented in this encounterWooster [facility] Hospital01-01-2024 Miscellaneous Notes* Telephone Encounter - Alice Mcneill RN - 05/02/2023 7:56 AM EST Reason: Severe sinus pain, congestion Outcome: 4 hour recommendation. Care advice given. Patient will got to [facility] for evaluation. Reason for Disposition [1] Redness [...] weak, fatigue Protocols used: Sinus Pain or [id number] documented in this encounterWooster [facility] Hospital11-29-2023 History of Present illness Narrative* Iwona Donato RN - 03/30/2023 3:02 PM EST pcp agrees with information * Iwona Donato RN - 03/30/2023 9:20 AM EST patient had inr completed at [facility] patients inr is 2.0 (patients inr range [...] for follow up INR. documented in this encounterWooster [facility] Hospital11-14-2023 History of Present illness Narrative* Lelo Sood, [employer] - 03/15/2023 10:22 AM EST Images from the original note were not included. Heart , Vascular and Thoracic [place] DEPARTMENT OF VASCULAR SURGERY OUTPATIENT VISIT DATE [...] BP Cuff Size: Regular Adult) Pulse 74 [id number]% General: Alert and oriented x3 Integumentary: Normal [...] increased risk for clotting SIGNATURE: Lelo Sood APRN.DAMASO PATIENT NAME: Jarod Pritchard DATE: March 15, 2023 TIME: 10:22 AM documented in this encounterWooster [facility] Hospital10-26-2023 History of Present illness Narrative* Iwona Donato RN - 02/24/2023 4:16 PM EDT PATIENT NOTIFIED OF INFORMATION * Anastasiia Colón APRN.CNS - 02/24/2023 12:12 PM EDT Coumadin 1mg , 2mg all other days and recheck INR in 1 week * Iwona Donato RN - 02/24/2023 10:19 AM EDT patient had inr completed at [facility] patients inr is 3.1 (patients inr range [...] and advise on recommendation documented in this encounterWooster [facility] Hospital10-17-2023 Miscellaneous Notes* Telephone Encounter - Romina Sawant LPN - 02/15/2023 5:26 PM EDT Forms completed, OV note signed by PCP and all faxed to the number on the forms. Attempted to update [facility] at [facility], is past business hours for the day. Romina Sawant LPN * Telephone Encounter - Concetta Snyder LPN - 02/15/2023 3:38 PM EDT Arely from [facility] in [place] states she has diabetic shoes ready to give pt however she needs info from pcp. Arely states she has faxed a statement that needs signed & is also requesting pt's last OV notes from here. Pt states she faxed this form to the office 3X, on 01/26, 02/02 & 02/11/23, fax # was verified that she is faxing to. Please complete paperwork & fax back to her so shoes can be dispensed to pt. Arely can be reached at [phone]. Concetta Snyder LPN documented in this encounterWooster Community Hospital10-06-2023 History of Present illness Narrative* Kierra Santiago MD - 02/04/2023 5:18 PM EDT This note was created using Qwiqqriter. Subjective Jarod Pritchard is a 82 year old female. 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 Worse now than used to be. Had not tried biotin. Taking Vitamin C Noted had skin lesions that PCP had cryotherapy on face (has lateral right eyebrow) Previously treated--tiny rough spot. Seeing Dr. Johnson about her neck (vascular). Had prior right carotid endarterectomy. Has appointmentNovember. Seeing glass washer--Dr. Blanca. Noted getting new orthotics on Tuesday. [...] Abs Lymph 1.00 - 4.00 k/uL 1.80 Pipestone% % 10.2 Abs P[place] <0.87 k/uL 0.64 Eosin% % 2.1 Abs [...] polyneuropathy, without long-term current use of insulin ([facility]) E11.42 HGB A1C CBC COMP METABOLIC PANEL Patient would benefit from Diabetic shoes. 2. Stenosis of carotid artery, unspecified laterality I65.29 3. History of carotid endarterectomy Z98.890 4. Primary hypertension I10 CBC COMP METABOLIC PANEL 5. Factor V deficiency ([facility]) D68.2 6. Encounter for long-term current use of medication Z79.899 LIPID PANEL BASIC HGB A1C CBC COMP METABOLIC PANEL 7. Mixed hyperlipidemia E78.2 LIPID PANEL BASIC 8. Chronic cough R05.3 9. Need for influenza vaccination Z23 INFLUENZA VACCINE, PRSV FREE, AGE 65+ YR, HIGH DOSE, QUADRIVALENT (FLUZONE HIGH-DOSE) 10. Encounter for immunization Z23 XimoXi-DuckDuckGo COVID-19 VACCINE (2022- [place]) AGE 12+ YR [...] the date of the service which included foch-jz-nnbk patient care, completing clinical documentation, performing a medically appropriate examination, counseling and educating the patient/family/caregiver, ordering medications, tests, or procedures, independently interpreting results (not separately reported), and communicating results to the patient/family/caregiver. Kierra Santiago MD documented in this encounterWo[facility]09-28-2023 History of Present illness Narrative* ColónAnastasiia APRN.CNS - 01/27/2023 4:29 PM EDT Continue with Coumadin dose unchanged and check INR in 4 weeks * Iwona Donato RN - 01/27/2023 9:38 AM EDT patient had inr completed at [facility] patients inr is 2.3 (patients inr [...] follow u p INR. documented in this encounterWooster [facility] Hospital09-21-2023 History of Present illness Narrative* Anastasiia Colón APRN.CNS - 01/20/2023 4:41 PM EDT hold coumadin today, go back to eating the usual [place] of greens and continue on the 2mg coumadin and recheck inr in 1 week * Iwona Donato RN - 01/20/2023 10:24 AM EDT patient had inr completed at [facility] patients inr is 3.5 (patients inr [...] and advise on recommendation documented in this encounterWooster [facility] Hospital09-06-2023 Miscellaneous Notes* Telephone Encounter - Zahra [...] and advise. Zahra Negrete documented in this encounterWooster [facility] Hospital08-23-2023 History of Present illness Narrative* Sheryl Reyes APRN.POPULATION HEALTH COACH - 12/22/2022 10:33 AM EDT SUBJECTIVE Jarod Pritchard is a 82 year old female here today for a check up on her medical problems. Chief Complaint Patient presents with: F/U Diabetes 3 Month HPI Jarod Pritchard is a 82 year old female [...] 3 months. Noticing feeling overwhelmed. Moved from [place]. She notes a cough. On going since she had COVID. Taking coricidin and helping. Not sleeping well, takes melatonin up to 20 mg a night but still wakes often. Has a lot of stress. Admits tosome anxiety and depression. Good support with her bible study. Jarod Pritchard is a 82 year old female [...] medication.. Sheryl Reyes APRN-DAMASO documented in this encounterWooster [facility] Hospital08-22-2023 Miscellaneous Notes* Telephone Encounter - Kierra [...] Irizarry RN - 12/21/2022 11:07 AM EDT [facility] pharmacist reports they received a metformin [...] KIERRA SANTIAGO MD * Telephone Encounter - Warner Atkins LPN - 12/20/2022 4:22 PM EDT Last [...] RX will be sent to her local [facility] pharmacy. No need to notify patient. Cherelle Aguillon documented in this encounterWooster Community Hospital08-22-2023 Miscellaneous Notes* Telephone Encounter - Anastasiia [...] today and advise. TY documented in this encounterWooster [facility] Hospital08-17-2023 History of Present illness Narrative* Anastasiia Colón APRN.CNS - 12/16/2022 11:25 AM EDT Continue with Coumadin dose unchanged and check INR in 1 month * Iwona Donato RN - 12/16/2022 10:15 AM EDT patient had inr completed at [facility] patients inr is 2.9 (patients inr range [...] for follow up INR. documented in this encounterWooster [facility] Hospital08-03-2023 History of Present illness Narrative* Sally Centeno - 12/02/2022 7:51 AM EDT Jarod Pritchard is identified through a medication adherence outreach initiative based on pharmacy claims data from [employer] (insurer) for Non-insulin DM medication(s). Patient is [...] told she could stop the metformin. Sally Sue documented in this encounterWooster [facility] Hospital08-02-2023 History of Present illness Narrative* Pal Johnson MD - 12/01/2022 6:35 PM EDT Images from the original note were not included. Heart , Vascular and Thoracic [place] DEPARTMENT OF VASCULAR SURGERY OUTPATIENT VISIT DATE [...] BP Cuff Size: Regular Adult) Pulse 75 [id number]% General: Alert and oriented, No acute distress, [...] reviewed for today's visit: Non-Invasive Vascular Laboratory [facility] Carotid Duplex Bilateral/Complete Date of service/time: 08/10/2022 10:03:56 AM Name: JAROD PRITCHARD Date of : 1940 Age: 81 [...] cm/s. EDV: 9 cm/s. IMPRESSION Anastasiia Colón [employer] notified with results. 08/10/2022 11:55 am RIGHT [...] artery: Patent and antegrade flow noted. Technologist: Madelenie Gayle RVT, [facility] Ordering physician: ANASTASIIA COLÓN Interpreting physician: [...] statin. Return for review of duplex. SIGNATURE: Pal Johnson MD PATIENT NAME: Jarod Pritchard DATE: December 01, 2022 TIME: 6:35 PM documented in this encounterWooster [facility] Hospital07-24-2023 History of Present illness Narrative* Teena Workman RT(R) - 11/22/2022 1:20 PM EDT Radiology Service Progress Note PATIENT NAME: Jarod Pritchard DATE OF SERVICE: November 22, 2022 [...] 22, 2022 4:11 PM documented in this encounterWooster [facility] Hospital07-20-2023 History of Present illness Narrative* Anastasiia Colón APRN.CNS - 11/18/2022 3:48 PM EDT Continue with Coumadin dose unchanged and check INR in 4 weeks * Iwona Donato RN - 11/18/2022 9:29 AM EDT patient had inr completed at [facility] patients inr is 3.0 (patients inr range [...] for follow up INR. documented in this encounterWo[facility] Hospital06-29-2023 History of Present illness Narrative* Anastasiia Colón APRN.CNS - 10/28/2022 3:41 PM EDT Continue with Coumadin dose unchanged and check INR in 3 weeks * Iwona Donato RN - 10/28/2022 9:42 AM EDT patient had inr completed at [facility] patients inr is 2.5 (patients inr range [...] will be closed at the 4-5 week roxann) for follow up INR. documented in this encounterWo[facility]06-13-2023 History of Present illness Narrative* Daylin Delgado DO - 10/12/2022 11:38 AM EDT This office note has been dictated. Daylin Delgado DO documented in this encounterWooster [facility] Hospital06-13-2023 History of Present illness Narrative* Teena Workman, [...] CTA Neck SIGNATURE: RT Cas(R) PATIENT NAME: Jarod Pritchard DATE: October 12, 2022 TIME: 1:28 PM documented in this encounterWooster [facility] Hospital06-01-2023 History of Present illness Narrative* Anastasiia Colón APRN.BLUEPRINT MAKER - 09/30/2022 1:27 PM EDT Continue with current Coumadin dosing and check INR in 4 weeks * Iwona Donato RN - 09/30/2022 9:35 AM EDT patient had inr completed at [facility] patients inr is 2.2 (patients inr range [...] for follow up INR. documented in this encounterWo[facility] Hospital05-02-2023 Miscellaneous Notes* Telephone Encounter - Bekah [...] Abs Lymph 1.00 - 4.00 k/uL 1.80 Pipestone% % 10.2 Abs [place] <0.87 k/uL 0.64 Eosin% % 2.1 Abs [...] - 4.200 mIU/L 2.450 documented in this encounterWooster [facility] Hospital04-28-2023 Miscellaneous Notes* Telephone Encounter - Bekah [...] LPN * Telephone Encounter - Anastasiia Colón APRN.BLUEPRINT MAKER - 08/24/2022 5:29 PM EDT 1-Her INR [...] and advise. Luz PETTY documented in this encounterWooster [facility] Hospital04-19-2023 History of Present illness Narrative* Praful Ledesma RT(R) - 08/18/2022 9:30 AM EDT Radiology Service Progress Note PATIENT NAME: Jarod Pritchard DATE OF SERVICE: August 18, 2022 [...] 18, 2022 9:24 AM documented in this encounterWooster [facility] Hospital04-19-2023 Miscellaneous Notes* Result Encounter Note - Anastasiia Colón APRN.CNS - 08/18/2022 9:30 AM EDT BMD shows osteopenia documented in this encounterWooster Community Hospital04-14-2023 Miscellaneous Notes* Telephone Encounter - Julianne [...] and antegrade flow noted. documented in this encounterWooster Community Hospital04-03-2023 Miscellaneous Notes* Telephone Encounter - Bekah Lu LPN - 08/02/2022 4:59 PM EDT Patient notified of coumadin instructions and verbalized understanding. * Telephone Encounter - Anastasiia Colón APRN.CNS - 08/02/2022 4:02 PM EDT Please let her know INR is 2.3. Continue on with Coumadin dose unchanged, 2 mg daily. documented in this encounterWooster Community Hospital04-03-2023 Miscellaneous Notes* Addendum Note - Anastasiia Colón APRN.CNS - 08/02/2022 12:46 PM EDTAddended by: ANASTASIIA COLÓN on: 08/02/2022 12:46 PM Modules accepted: Orders documented in this [facility]04-03-2023 Instructions* Patient Instructions* Anastasiia Colón APRN.CNS - 08/02/2022 9:49 AM EDT Schedule appointment with Coumadin clinic. Schedule an eye exam. Consider getting vaccines at your local pharmacy or here at clinic Tdap shingles pneumonia and COVID-19 vaccines appear to be due for you unless you completed these [id number]. documented in this encounterWooster Community Hospital04-03-2023 History of Present illness Narrative* Anastasiia [...] Never done DEPRESSION ASSESSMENT Never done HPI Jarod Pritchard is a 81 year old female. PMH significant for ACTIVE PROBLEM LIST Hyperlipidemia Primary Hypertension Carotid Atherosclerosis Subclinical Hypothyroidism Fatty Liver Heart Murmur Type 2 Diabetes Mellitus With Hyperglycemia, Without Long-Term Current Use of Insulin (Hcc) Factor V Deficiency (Hcc) HPI excerpted from previous visit: Presents today to establish care with Kierra Santiago MD. Notes recent [facility] family [facility]. Previous PCP: Roel Maza, DO, DO [address] [facility] [address] [facility] [address] Last seen: January 2022 Labwork:January 2022 ER/Hospitalization: [...] Abs Lymph 1.00 - 4.00 k/uL 1.80 [place]% % 10.2 Abs [place] <0.87 k/uL 0.64 Eosin% % 2.1 Abs [...] due for you unless you completed these [id number]. Anastasiia Colón APRN.CNS Medical Decision Making: Problems: Moderate: 2+ stable chronic illnesses Data: Unique test(s) ordered: 2 Risk: Low: Low risk from testing/treatment Medical Decision Making Level: 3 - Low documented in this encounterWooster [facility] Hospital03-03-2023 Miscellaneous Notes* Telephone Encounter - Noemi Cullen RN - 07/02/2022 9:16 AM EST Pt contacted and given provider's message below. Pt verbalized understanding and wrote instructionsdown. Noemi Cullen, RN * Telephone Encounter - Anastasiia Colón APRN.BLUEPRINT MAKER - 07/02/2022 7:34 AM EST Please let [...] Abs Lymph 1.00 - 4.00 k/uL 1.80 [place]% % 10.2 Abs [place] <0.87 k/uL 0.64 Eosin% % 2.1 Abs [...] - 4.200 mIU/L 2.450 documented in this encounterWooster [facility] Hospital03-02-2023 History of Present illness Narrative* Anastasiia [...] Never done DEPRESSION ASSESSMENT Never done HPI Jarod Pritchard is a 81 year old female. [...] DO [address] [facility] [id number] Last seen: January 2022 Labwork:January 2022 ER/Hospitalization: [...] 1 tablet by mouth daily at bedtime. cranberry-B.tefmvkvp-Z-Zb phos 480 mg-20 mg- 100million cell tab [...] Abs Lymph 1.00 - 4.00 k/uL 1.80 [place]% % 10.2 Abs [place] <0.87 k/uL 0.64 Eosin% % 2.1 Abs [...] LAB 1 mo follow up Anastasiia Colón APRN.BLUEPRINT MAKER 6 mo follow up MD Anastasiia Wilson APRN.CNS Medical Decision Making: Problems: Moderate: 2+ stable chronic illnesses Data: Unique test(s) ordered: 3+ Risk: Moderate: Drug management Medical Decision Making Level: 4 - Moderate documented in this encounterUniversity [facility]* Diagnosis Routine medical exam- Primary Routine [...] Other postprocedural status documented in this encounter [facility]* Diagnosis Type 2 diabetes mellitus with hyperglycemia, without long-term current use of insulin (HCC)- Primary Encounter for immunization Need for other specified prophylactic vaccination against single bacterial disease Screening for diabetic retinopathy Screening for other eye conditions Screening for osteoporosis Special screening for osteoporosis Asymptomatic menopause documented in this encounter [facility]* Diagnosis Stenosis of carotid artery, unspecified laterality- Primary History of carotid endarterectomy Other postprocedural status History of transient ischemic attack (TIA) Transient ischemic attack (TIA), and cerebral infarction without residual deficits Stenosis of left carotid artery Occlusion and stenosis of carotid artery without mention of cerebral infarction [facility]* Diagnosis Type 2 diabetes mellitus with hyperglycemia, without long-term current use of insulin ([facility])- Primary High triglycerides Pure hyperglyceridemia [facility]* Diagnosis 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 documented [facility] this encounter [facility]* Diagnosis Stenosis of carotid artery, unspecified laterality History of carotid endarterectomy Other postprocedural status History of transient ischemic attack (TIA) Transient ischemic attack (TIA), and cerebral infarction without residual deficits Stenosis of left carotid artery Occlusion and stenosis of carotid artery without mention of cerebral infarction documented [facility] this encounter [facility]* Diagnosis 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 [facility] Diagnosis 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 [facility] Diagnosis Carotid stenosis, asymptomatic, bilateral- Primary [facility] Diagnosis 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 [facility] Diagnosis Stress and adjustment reaction- Primary Other specified adjustment reaction Sleep disturbance Sleep disturbance, unspecified Type 2 diabetes mellitus with diabetic polyneuropathy, without long-term current use of insulin ([facility] Diagnosis 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 [facility] Diagnosis Type 2 diabetes mellitus with [...] single bacterial disease [facility] Diagnosis 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 [facility] Diagnosis Lung nodules Other nonspecific abnormal finding of lung field [facility] Diagnosis Occlusion and stenosis of unspecified carotid artery [facility]* Diagnosis Screening for osteoporosis Special screening for osteoporosis Asymptomatic menopause [facility] Diagnosis Bilateral carotid artery stenosis- Primary Occlusion and stenosis of carotid artery without mention of cerebral infarction Primary hypertension Unspecified essential hypertension Elevated HDL Other symptoms involving cardiovascular system Factor 5 Leiden mutation, heterozygous (HCC) Primary hypercoagulable state [facility] Diagnosis 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 [facility] Diagnosis Type 2 diabetes mellitus with hyperglycemia, without long-term current use of insulin (HCC)- Primary Peripheral vascular disease, unspecified (HCC) Peripheral vascular disease, unspecified 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 Factor 5 Leiden mutation, heterozygous (HCC) Primary hypercoagulable state Type 2 diabetes mellitus with diabetic polyneuropathy, without long-term current use of insulin ([facility]) Encounter for immunization Need for other specified prophylactic vaccination against single bacterial disease Facial lesion Unspecified disorder of skin and subcutaneous tissue Other acute sinusitis Mixed hyperlipidemia Subclinical hypothyroidism Other specified acquired hypothyroidism [facility] Diagnosis 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 [facility] Diagnosis 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 [facility] Diagnosis Left arm numbness- Primary Disturbance of skin sensation [facility]* Diagnosis Uncontrolled type 2 diabetes mellitus with hyperglycemia (HCC)- Primary Hyponatremia Hyposmolality and/or hyponatremia [facility] Diagnosis Uncontrolled type 2 diabetes mellitus with hyperglycemia (HCC) [facility] Diagnosis 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 [facility] Diagnosis Lung nodules Other nonspecific abnormal finding of lung field [facility]* Diagnosis Bilateral carotid artery stenosis- Primary Occlusion and stenosis of carotid artery without mention of cerebral infarction [facility]* Diagnosis Type 2 diabetes mellitus with diabetic polyneuropathy, without long-term current use of insulin (HCC)- Primary [facility] Diagnosis Chest pain, unspecified type- Primary [...] Primary hypercoagulable state [facility]* Diagnosis Elevated alanine aminotransferase (ALT) level- Primary Nonspecific elevation of levels of transaminase or lactic acid dehydrogenase (LDH) [facility]* Diagnosis Chest pain, unspecified type [facility]* Diagnosis Elevated alanine aminotransferase (ALT) level Nonspecific elevation of levels of transaminase or lactic acid dehydrogenase (LDH) [facility] Diagnosis 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 [facility]* Diagnosis Acute cough- Primary URI, acute Acute upper respiratory infections of unspecified site [facility]* Diagnosis Bacterial pneumonia- Primary Bacterial pneumonia, unspecified [facility]* Diagnosis Type 2 diabetes mellitus with hyperglycemia, without long-term current use of insulin (HCC)- Primary [facility]* Diagnosis Hypoxia- Primary Hypoxemia [facility]* Diagnosis Acute cough [facility] Diagnosis Pain- Primary Generalized pain [facility] Diagnosis Critical limb ischemia of right [...] Primary hypercoagulable state [facility]* Diagnosis Acute on chronic congestive heart failure, unspecified heart failure type (HCC)- Primary Type 2 diabetes mellitus with diabetic polyneuropathy, without long-term current use of insulin (HCC) Hypokalemia Hypopotassemia Leg cramp Cramp of limb Ulcer of right foot, limited to breakdown of skin ([facility]) Callus of foot Corns and callosities Dependent rubor Unspecified erythematous condition [facility] Diagnosis Critical limb ischemia of right lower extremity (HCC)- Primary Pain of foot, unspecified laterality [facility]* Diagnosis Chest pain, unspecified type- Primary Lung nodules Other nonspecific abnormal finding of lung field Transaminitis Nonspecific elevation of levels of transaminase or lactic acid dehydrogenase (LDH) Atrial fibrillation, unspecified type (HCC) Type 2 diabetes mellitus with hyperglycemia, without long-term current use of insulin ([facility]) Factor 5 Leiden mutation, heterozygous ([facility]) Primary hypercoagulable state Mid back pain on left side Pain in thoracic spine [facility] Diagnosis Critical limb ischemia of right lower extremity (HCC)- Primary S/P transmetatarsal amputation of foot, right (HCC) S/P femoral-popliteal bypass surgery Other postprocedural status Acute gastric ulcer, unspecified whether gastric ulcer hemorrhage or perforation present Duodenal ulcer Duodenal ulcer, unspecified as acute or chronic, without hemorrhage, perforation, or obstruction [facility]* Diagnosis 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 [facility]* Diagnosis Aortic valve disorder- Primary Aortic valve disorders Pure hypercholesterolemia Primary hypertension Unspecified essential hypertension Heart murmur Undiagnosed cardiac murmurs [facility]* Diagnosis Occlusion and stenosis of [...] unspecified type (HCC) [facility] Diagnosis Type 2 diabetes mellitus with diabetic polyneuropathy, without long-term current use of insulin (HCC)- Primary [facility]* Diagnosis Type 2 diabetes mellitus with diabetic polyneuropathy, without long-term current use of insulin (HCC)- Primary Hypokalemia Hypopotassemia Other acute sinusitis Decreased hearing of both ears Subclinical hypothyroidism Other specified acquired hypothyroidism History of anemia Personal history of diseases of blood and blood-forming organs S/P transmetatarsal amputation of foot, right (HCC) Stage 3b chronic kidney disease (HCC) [facility]* Diagnosis Anemia, unspecified type- Primary Acute gastric ulcer, unspecified whether gastric ulcer hemorrhage or perforation present Duodenal ulcer Duodenal ulcer, unspecified as acute or chronic, without hemorrhage, perforation, or obstruction Type 2 diabetes mellitus with diabetic polyneuropathy, without long-term current use of insulin (HCC) Stage 3b chronic kidney disease (HCC) Chronic atrial fibrillation (HCC) Atrial fibrillation Factor V Leiden mutation ([facility]) Primary hypercoagulable state Peripheral vascular disease Peripheral vascular disease, unspecified 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 Kierra Santiago MD Status:AD M IN [facility] - General General Date of Admission: [...] with no gross lesions presents to the [facility] ED on 10/07/2024 with history of [...] (Auto) 71.8 H, Lymph %(Auto) 18.2 L, [place] % (Auto) 8.9, Eos % (Auto) 0.4, [...] pleural effusion and mild cardiomegaly. Reading Location: [id number] Assessment & Plan Assessment/Plan (1) Acute upper [...] with no gross lesions presents to the [facility] ED on 10/07/2024 with history of [...] regimen, monitor I/Os, patient unable to tolerate juan j wraps of note thus will defer, most [...] 16 minutes. Charges/Coding Visit Charges Inpatient E&M: 68362 Init Hosp L3 Procedures Hospitalists Procedures: 60446 Advncd Care Plan 30 Min 10/08/24 0032 <Electronically signed by Kelsie Muñoz MD> Cosigner Signature (if applicable): CC: Dr. Kelsie Muñoz MD; Dr. Kierra Santiago MD~ Signed [facility] Work Phone: Reason for referral (narrative)* Outpatient Procedure (Routine) - Authorized Specialty Diagnoses / Procedures Referred By Contac t Referred To [facility] Diagnoses Stenosis of carotid artery, unspecified laterality History of carotid endarterectomy Procedures US CAROTID ARTERIES K[facility]AD[facility] VAS LAB DUPLEX SCAN EXTRACRANIAL ART COMPL BI STUDY Anastasiia Colón, [employer] [address] [place] [address] [facility] [place] [address] [place] [address] Referral ID Status Reason Start Date Expiration Date Visits Requested Visits Authorized [id number] Authorized Auto-Generat ed Referral 07/01/2022 07/01/2023 1 1 * Consult, Test, Treat (Routine) - Pending Review Specialty Diagnoses / Procedures Referred By Contac t Referred To Contact Podiatry Diagnoses Type 2 diabetes mellitus with hyperglycemia, without long-term current use of insulin (HCC) Callus of foot Injury of toe on right foot, subsequent encounter Procedures CONSULT TO PODIATRY OFFICE/OUTPATIENT NEW HIGH MDM 60-74 MINUTES Anastasiia Colón APRN.[employer] [address] [place] [address] Referral ID Status Reason Start Date Expiration Date Visits Requested Visits Authorized [id number] Pending Review PCP Requested Referral 07/01/2022 07/01/2023 1 1 [facility] for referral (narrative)* Outpatient Procedure (Routine) - Pending Review Specialty Diagnoses / Procedures Referred By Contac t Referred To [facility] Diagnoses Carotid stenosis, asymptomatic, bilateral Procedures US CAROTID ARTERIES KWADWO VAS LAB DUPLEX SCAN EXTRACRANIAL ART COMPL BI STUDY Pal Johnson MD [address] [place] [address] [facility] [address] [address] Referral ID Status Reason Start Date Expiration Date Visits Requested Visits Authorized [id number] Pending Review Auto-Generat ed Referral 12/01/2022 12/01/2023 1 1 [facility] for referral (narrative)* Outpatient Procedure (Routine) - Authorized Specialty Diagnoses / Procedures Referred By Contac t Referred To Contact [facility] Diagnoses Bilateral carotid artery stenosis Procedures US CAROTID ARTERIES KWADWO VAS LAB DUPLEX SCAN EXTRACRANIAL ART COMPL BI STUDY Lelo Sood, [employer].POPULATION HEALTH COACH [address] [place] [address] [facility] [place] [address] [place] [address] Referral ID Status Reason Start Date Expiration Date Visits Requested Visits Authorized [id number] Authorized Auto-Generat ed Referral 03/14/2024 1 1 [facility] for referral (narrative)* Outpatient Procedure (Routine) - Authorized Specialty Diagnoses / Procedures Referred By Contac t Referred To [facility] Diagnoses Bilateral carotid artery stenosis Procedures US CAROTID ARTERIES KWADWO VAS LAB DUPLEX SCAN EXTRACRANIAL ART COMPL BI STUDY Daylin Delgado, [address] [place] [id number] [facility] [place] [address] [place] [address] Referral ID Status Reason Start Date Expiration Date Visits Requested Visits Authorized [id number] Authorized Auto-Generat ed Referral 10/04/2023 10/03/2024 1 1 [facility] for referral (narrative)* Diagnostic Procedure Only (Routine) - Authorized Specialty Diagnoses / Procedures Referred By Contac t Referred To Contact US IMAGING Diagnoses Elevated alanine aminotransferase (ALT) level Procedures US ABD RIGHT UPPER QUADRANT US ABDOMINAL REAL TIME W/IMAGE LIMITED Tara Benavides APRN.POPULATION HEALTH COACH [address] [facility] [place] [address] [place] [address] Referral ID Status Reason Start Date Expiration Date Visits Requested Visits Authorized [id number] Authorized Auto-Generat ed Referral 11/18/2023 12/17/2024 1 1 T [facility] for referral (narrative)* Diagnostic Procedure Only (Routine) - Closed Specialty Diagnoses / Procedures Referred By Contac t Referred To Contact [facility] Diagnoses Elevated alanine aminotransferase (ALT) level Procedures US ABD RIGHT UPPER QUADRANT US ABDOMINAL REAL TIME W/IMAGE LIMITED Tara Benavides [employer]DAMASO [address] [facility] [place] [address] [place] [address] Referral ID Status Reason Start Date Expiration Date V isits Requested Visits Authorized [id number] Closed Auto-Generate d Referral 11/18/2023 12/17/2024 1 1 [facility] for referral (narrative)* Outpatient Procedure (Routine) - Authorized Specialty Diagnoses / Procedures Referred By Contac t Referred To Contact [facility] Diagnoses Aortic valve disorder Procedures ECHO ECHO TTHRC R-T 2D W/WOM-MODE COMPL SPEC&COLR D Babak, Terrence Garcia MD [address], [address] [place] [address] [facility] [address] [address] Referral ID Status Reason Start Date Expiration Date Visits Requested Visits Authorized [id number] Authorized Auto-Generat ed Referral 04/23/2025 1 1 [facility] for referral (narrative)No reason for referral information available[facility] Work Phone: Reason for visit Narrative* Outpatient Procedure (Routine) - Closed Specialty Diagnoses / Procedures Referred By Contac t Referred To Contact [facility] [place] Diagnoses Chest pain, unspecified type Procedures STRESS ECHO TREADMILL ECHO TTHRC R-T 2D W/WO M-MODE COMPLETE REST&ST Anastasiia Colón, [employer]KER [address] [place] [address] [facility] [address] [address] Referral ID Status Reason Start Date Expiration Date V isits Requested Visits Authorized [id number] Closed Auto-Generate d Referral 10/12/2023 05/01/2024 1 1 [facility] Reason for Referral Specialty Diagnoses / Procedures Referred By Contac t Referred To Contact Ophthalmology Diagnoses Screening for diabetic retinopathy Procedures CONSULT TO OPHTHALMOLOGY OFFICE/OUTPATIENT NEW HIGH MDM 60-74 MINUTES Anastasiia Colón, [employer]UE[employer] MAKER [address] [place] [address] Referral ID Status Reason Start Date Expiration Date Visits Requested Visits Authorized [id number] Authorized PCP Requested Referral 08/02/2022 08/02/2023 1 1 Specialty Diagnoses / Procedures Referred By Contac t Referred To Contact Vascular Surgery Diagnoses Stenosis of carotid artery, unspecified laterality History of carotid endarterectomy History of transient ischemic attack (TIA) Stenosis of left carotid artery Procedures CONSULT TO VASCULAR SURGERY OFFICE/OUTPATIENT [facility] 60-74 MINUTES [facility], [place] [address] Referral ID Status Reason Start Date Expiration Date Visits Requested Visits Authorized [id number] Authorized PCP Requested Referral 08/10/2022 08/10/2023 1 1 Specialty Diagnoses / Procedures Referred By Contac t Referred To Contact Vascular Medicine Diagnoses Stenosis of carotid artery, unspecified laterality History of carotid endarterectomy History of transient ischemic attack (TIA) Stenosis of left carotid artery Procedures CONSULT TO VASCULAR MEDICINE OFFICE/OUTPATIENT [facility] 60-74 MINUTES [facility], [place] [address] Referral ID Status Reason Start Date Expiration Date Visits Requested Visits Authorized [id number] Authorized PCP Requested Referral 08/10/2022 08/10/2023 1 1 Specialty Diagnoses / Procedures Referred By Contac t Referred To Contact CT IMAGING Diagnoses Lung nodules Procedures CT CHEST WO IVCON DIAGNOSTIC COMPUTED TOMOGRAPHY THORAX W/O CNTRST Daylin Delgado, DO [address] [place] [address] [facility] [place] [address] Referral ID Status Reason Start Date Expiration Date V isits Requested Visits Authorized [id number] Closed Auto-Generate d Referral 11/08/2022 12/08/2023 1 1 Specialty Diagnoses / Procedures Referred By Contac t Referred To Contact CT IMAGING Diagnoses Occlusion and stenosis of unspecified carotid artery Procedures CTA NECK W IVCON CT ANGIOGRAPHY NECK W/CONTRAST/NONCONTRAST Daylin Delgado, DO [address] [place] [address] [place] [address] Referral ID Status Reason Start Date Expiration Date V isits Requested Visits Authorized [id number] Closed Auto-Generate d Referral 09/21/2022 10/21/2023 1 1 Specialty Diagnoses / Procedures Referred By Contac t Referred To Contact CT IMAGING Diagnoses Occlusion and stenosis of unspecified carotid artery Procedures CTA HEAD W IVCON CT ANGIOGRAPHY HEAD W/CONTRAST/NONCONTRAST Daylin Delgado D, DO [address] [place] [id number] [facility] [place] [address] Referral ID Status Reason Start Date Expiration Date V isits Requested Visits Authorized [id number] Closed Auto-Generate d Referral 09/21/2022 10/21/2023 1 1 Specialty Diagnoses / Procedures Referred By Contac t Referred To Contact Dermatology Diagnoses Facial lesion Procedures CONSULT TO DERMATOLOGY Anastasiia Colón APRN.[employer]KER [address] [place] [address] Referral ID Status Reason Start Date Expiration Date Visits Requested Visits Authorized [id number] Ref Not Required PCP Requested Referral 06/07/2023 06/06/2024 1 1 Specialty Diagnoses / Procedures Referred By Contac t Referred To Contact Diagnoses Uncontrolled type 2 diabetes mellitus with hyperglycemia (HCC) Procedures CONSULT TO DIABETES EDUCATION DSME/MNT MEDICAL NUTRITION ASSMT&IVNTJ INDIV EACH 15 MD MEDICAL NUTRITION ASSMT&IVNTJ INDIV EACH 15 MD MEDICAL NUTRITION ASSMT&IVNTJ INDIV EACH 15 MD MEDICAL NUTRITION ASSMT&IVNTJ INDIV EACH 15 MD Anastasiia Colón, SHANNAN.BLUEPRINT MAKER [address] [place] [address] Referral ID Status Reason Start Date Expiration Date Visits Requested Visits Authorized [id number] Pending Review PCP Requested Referral 10/11/2023 10/10/2024 1 1 Specialty Diagnoses / Procedures Referred By Contac t Referred To Contact Gastroenterology Diagnoses Transaminitis Procedures CONSULT TO GASTROENTEROLOGY OFFICE/OUTPATIENT [facility] 60 MINUTES Anastasiia Colón, [employer]UE[employer]KER [address] [place] [address] Referral ID Status Reason Start Date Expiration Date Visits Requested Visits Authorized [id number] Pending Review PCP Requested Referral 10/10/2023 10/09/2024 1 1 Specialty Diagnoses / Procedures Referred By Contac t Referred To Contact [facility] Diagnoses Chest pain, unspecified type Procedures STRESS ECHO TREADMILL ECHO TTHRC R-T 2D W/WO M-MODE COMPLETE REST&ST Anastasiia Colón, [employer]KER [address] [place] [address] [facility] [place] [address] [place] [address] Referral ID Status Reason Start Date Expiration Date Visits Requested Visits Authorized [id number] Pending Review Auto-Generat ed Referral 10/10/2023 10/09/2024 1 1 Specialty Diagnoses / Procedures Referred By Ryanac t Referred To Contact Cardiology Diagnoses Atrial fibrillation, unspecified type (HCC) Chest pain, unspecified type Procedures CONSULT TO CARDIOLOGY OFFICE/OUTPATIENT [facility] 60 MINUTES Anastasiia Colón, [employer]KER [address] [place] [address] Referral ID Status Reason Start Date Expiration Date Visits Requested Visits Authorized [id number] Pending Review PCP Requested Referral 10/10/2023 10/09/2024 1 1 Specialty Diagnoses / Procedures Referred By Gilbert t Referred To Contact CT IMAGING Diagnoses Lung nodules Procedures CT CHEST WO IVCON DIAGNOSTIC COMPUTED TOMOGRAPHY THORAX W/O CNTRST Anastasiia Colón, [employer]KER [address] [place] [address] [place] [address] Referral ID Status Reason Start Date Expiration Date Visits Requested Visits Authorized [id number] Authorized Auto-Generat ed Referral 05/02/2023 05/01/2024 1 1 Referral ID Status Reason Start Date Expiration Date Visits Requested Visits Authorized [id number] Authorized Auto-Generat ed Referral 05/08/2024 06/07/2025 1 1 Referral ID Status Reason Start Date Expiration Date Visits Requested Visits Authorized [id number] Authorized Auto-Generat ed Referral 05/08/2024 06/07/2025 1 1 Advance Directives No Advanced Directives Records FoundDocuments on File Type Date Recorded Patient Candy Puller Expl anation Advance Directive(s) 01/11/2024 10:31 AM Documents on File Type Date Recorded Patient Candy Puller Expl anation Advance Directive(s) 01/11/2024 10:31 AM Advance Directive Response Recorded Date/ Time Living Will Yes March 20, 024 2:40pm Power of Gui Developer Yes March 20, 2024 2:40pm Name of Medical Power of Gui Developer Ruth Pritchard March 20, 2024 2:40pm Living Will Yes April 04 9:05am Power of Gui Developer Yes April 04, 2024 9:05am Name of Medical Power of Gui Developer DORIS April 04, 2024 9:05am Advance Directive Response Recorded Date/ Time Living Will Yes March 20, 024 2:40pm Do you have a Healthcare Power of Gui Developer? Yes March 20, 2024 2:40pm Name of Medical Power of Gui Developer Ruth Pritchard March 20, 2024 2:40pm Living Will Yes April 04 9:05am Do you have a Healthcare Power of Gui Developer? Yes April 04, 2024 9:05am Name of Medical Power of Gui Developer BAYSIDE April 04, 2024 9:05am Advance Directive Response Recorded Date/ Time Living Will Yes August 17, 2024 10:51am Do you have a Healthcare Power of Gui Developer? Yes August 17, 2024 10:51am Name of Medical Power of Gui Developer August 17, 2024 10:51am Advance Directive Response Recorded Date/ Time Do you have a Healthcare Power of Gui Developer? Yes October 07, 2024 9:35pm Living Will Yes August 17, 2024 10:51am Do you have a Healthcare Power of Gui Developer? Yes August 17, 2024 10:51am Name of Medical Power of Gui Developer August 17, 2024 10:51am Advance Directive Response Recorded Date/ Time Do you have a Healthcare Power of Gui Developer? Yes October 08, 2024 1:19am Living Will Yes August 17, 2024 10:51am Do you have a Healthcare Power of Gui Developer? Yes August 17, 2024 10:51am Name of Medical Power of Gui Developer August 17, 2024 10:51am Chief Complaint and Reason for Visit Chief Complaint Admit Date RIGHT TRANSMETATARSAL AMPUTATION Novembe r 2023 6:10pm RIGHT TRANSMETATARSAL AMPUTATION Novembe r 2023 12:58pm RIGHT TRANSMETATARSAL AMPUTATION Novembe r 2023 8:15am RIGHT TRANSMETATARSAL AMPUTATION Decembe r 2023 5:03pm RIGHT TRANSMETATARSAL AMPUTATION Decembe r 2023 8:30am [facility] 12/8 CHF May 14, 2024 1 :25pm Encounter [...] 2024 8:20am GERD (gastroesophageal reflux disease) F [facility] 2024 8:20am Anticoagulant long-term use June 9:53am Aortic valve stenosis June 20 9:53am Chronic a-fib June 20, 2024 9:53am Hyperlipidemia June 20, 2024 9:53am Peripheral vascular disease June 9:53am Chief Complaint Admit Date RIGHT TRANSMETATARSAL AMPUTATION Novembe r 2023 6:10pm RIGHT TRANSMETATARSAL AMPUTATION Decembe r 2023 5:03pm RIGHT TRANSMETATARSAL AMPUTATION Decembe r 2023 8:30am [facility] 12/8 CHF May 14, 2024 1 :25pm Encounter for surgical aftercare followi ng surgery May 28, 2024 8:56am 4 M FU, 2 M F from hospital June 8:31am Gastroesophageal reflux disease (GERD) F [facility] 2024 8:20am E-ORDER June 20, 2024 9:44am 1 M FU June 20, 2024 9:53am E-ORDER July 10, 2024 9:4 1am INT LAB ORDER July 25, 2024 11: 07am Chief Complaint Admit Date [facility] 04/08 CHF May 14, 2024 1 :25pm Encounter for surgical aftercare followi ng surgery May 28, 2024 8:56am 4 M FU, 2 M F from hospital June 8:31am Gastroesophageal reflux disease (GERD) F [facility] 2024 8:20am E-ORDER June 20, 2024 [...] 2024 8:20am GERD (gastroesophageal reflux disease) F [facility] 2024 8:20am Anticoagulant long-term use June 9:53am Aortic valve stenosis June 20 9:53am Chronic a-fib June 20, 2024 9:53am Hyperlipidemia June 20, 2024 9:53am Peripheral vascular disease June 9:53am Chief Complaint Admit Date 4 M FU, 2 M F from hospital June 8:31am Gastroesophageal reflux disease (GERD) F [facility] 2024 8:20am E-ORDER June 20, 2024 [...] 2024 8:20am GERD (gastroesophageal reflux disease) F [facility] 2024 8:20am Anticoagulant long-term use June 9:53am Aortic valve stenosis June 20 9:53am Chronic a-fib June 20, 2024 9:53am Hyperlipidemia June 20, 2024 9:53am Peripheral vascular disease June 9:53am Gastric ulcer August 22, 2024 11: 25am Chief Complaint Admit Date 4 M FU, 2 M F from hospital June 8:31am Gastroesophageal reflux disease (GERD) F [facility] 2024 8:20am E-ORDER June 20, 2024 [...] June 8:31am Gastroesophageal reflux disease (GERD) F [facility] 2024 8:20am E-ORDER June 20, 2024 [...] 2024 8:20am GERD (gastroesophageal reflux disease) F [facility] 2024 8:20am Anticoagulant long-term use June [...] 1:57pm Warfarin-induced coagulopathy October 07, 2024 11:57pm Chief Complaint Admit Date 4 M FU, 2 M F from hospital June 8:31am Gastroesophageal reflux disease (GERD) F [facility] 2024 8:20am E-ORDER June 20, 2024 [...] ABLA, CHEST PAIN/?HF EXAC October 07, 2024 11:42pm GI BLEED, ABLA, CHEST PAIN/?HF EXAC October 07, 2024 11:57pm GI BLEED, ABLA, CHEST PAIN/?HF EXAC October 08, 2024 8:36am Reason for Visit Admit Date Carotid artery disease June 12 8:31am Diarrhea June 12, 2024 8:31am Peripheral vascular disease June 8:31am Diarrhea June 19, 2024 8:20am Gastric ulcer June 19, 2024 8:20am GERD (gastroesophageal reflux disease) F [facility] 2024 8:20am Anticoagulant long-term use June 9:53am Aortic valve stenosis June 20 9:53am Chronic a-fib June 20, 2024 9:53am Hyperlipidemia June 20, 2024 9:53am Peripheral vascular disease June 9:53am Gastric ulcer August 22, 2024 11: 25am ABLA (acute blood loss anemia) October 07, 2024 11:42pm Acute upper GI bleed October 07, 2024 11:4 2pm Atrial fibrillation October 07, 2024 11:42 pm Chest pain October 07, 2024 11:42 pm Factor V Leiden October 07, 2024 11:42 pm 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) October 07, 2024 11:42pm Pleural effusion, left October 07, 2024 11 :42pm Subendocardial ischemia October 07, 2024 1 1:42pm Warfarin-induced coagulopathy October 07, 2024 11:42pm Aortic valve stenosis October 07, 2024 11: 42pm Hypertension October 07, 2024 11:42 pm Chief Complaint Admit Date 4 M FU, 2 M F from hospital June 8:31am Gastroesophageal reflux disease (GERD) F [facility] 2024 8:20am E-ORDER June 20, 2024 [...] AND SWELLING October 02, 2024 12:51 pm PAIN/SWELLING October 02, 2024 12:59 pm GI BLEED, ABLA, CHEST PAIN/?HF EXAC October 07, 2024 11:42pm GI BLEED, ABLA, CHEST PAIN/?HF EXAC October 07, 2024 11:57pm GI BLEED, ABLA, CHEST PAIN/?HF EXAC October 08, 2024 8:36am GI BLEED, ABLA, CHEST PAIN/?HF EXAC October 08, 2024 3:57pm GI BLEED, ABLA, CHEST PAIN/?HF EXAC October 09, 2024 8:26am GI BLEED, ABLA, CHEST PAIN/?HF EXAC October 09, 2024 8:49am GI BLEED, ABLA, CHEST PAIN/?HF EXAC October 09, 2024 11:30am GI BLEED, ABLA, CHEST PAIN/?HF EXAC October 10, 2024 8:08am Reason for Visit Admit Date Carotid artery [...] Gastric ulcer August 22, 2024 11: 25am (HFpEF) heart failure with preserved eje ction fraction October 07, 2024 11:42pm ABLA (acute blood loss anemia) October 07, 2024 11:42pm Acute upper GI bleed October 07, 2024 11:4 2pm Atrial fibrillation October 07, 2024 11:42 pm Chest pain October 07, 2024 11:42 pm Factor V Leiden October 07, 2024 11:42 pm Gastric ulcer October 07, 2024 11:42 pm GI bleed October 07, 2024 11:42 pm Pleural effusion, left October 07, 2024 11 :42pm Subendocardial ischemia October 07, 2024 1 1:42pm Warfarin-induced coagulopathy October 07, 2024 11:42pm Aortic valve stenosis October 07, 2024 11: 42pm Hypertension October 07, 2024 11:42 pm 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) October 07, 2024 11:42pm Chief Complaint Admit Date E-ORDER July 10, 2024 9:4 1am INT LAB ORDER July 25, 2024 11: 07am E ORDER August 15, 2024 9:5 4am POST OP, PVD August 28, 2024 8:3 7am DWD September 06, 2024 8:49am Disorder of arteries and arterioles, uns pecified October 01, 2024 4:29pm PAIN AND SWELLING October 02, 2024 12:51 pm PAIN/SWELLING October 02, 2024 12:59 pm GI BLEED, ABLA, CHEST PAIN/?HF EXAC October 07, 2024 11:42pm GI BLEED, ABLA, CHEST PAIN/?HF EXAC October 07, 2024 11:57pm GI BLEED, ABLA, CHEST PAIN/?HF EXAC October 08, 2024 8:36am GI BLEED, ABLA, CHEST PAIN/?HF EXAC October 08, 2024 3:57pm GI BLEED, ABLA, CHEST PAIN/?HF EXAC October 08, 2024 6:38pm GI BLEED, ABLA, CHEST PAIN/?HF EXAC October 09, 2024 8:26am GI BLEED, ABLA, CHEST PAIN/?HF EXAC October 09, 2024 8:49am GI BLEED, ABLA, CHEST PAIN/?HF EXAC October 09, 2024 11:30am GI BLEED, ABLA, CHEST PAIN/?HF EXAC October 10, 2024 8:08am Discuss CTA October 31, 2024 1:48p m Reason for Visit Admit Date Gastric ulcer August 22, 2024 11: 25am GERD (gastroesophageal reflux disease) J 2024 11:42pm Iron deficiency anemia October 07, 2024 11 :42pm ABLA (acute blood loss anemia) October 07, 2024 11:42pm Acute upper GI bleed October 07, 2024 11:4 2pm Chest pain October 07, 2024 11:42 pm Gastric ulcer October 07, 2024 11:42 pm GI bleed October 07, 2024 11:42 pm 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) October 07, 2024 11:42pm Subendocardial ischemia October 07, 2024 1 1:42pm Warfarin-induced coagulopathy October 07, 2024 11:42pm (HFpEF) heart failure with preserved eje ction fraction October 07, 2024 11:42pm Aortic valve stenosis October 07, 2024 11: 42pm Atrial fibrillation October 07, 2024 11:42 pm Factor V Leiden October 07, 2024 11:42 pm Hypertension October 07, 2024 11:42 pm Pleural effusion, left October 07, 2024 11 :42pm Chief Complaint Admit Date E ORDER August 15, 2024 9:5 4am POST OP, PVD August 28, 2024 8:3 7am DWD September 06, 2024 8:49am Disorder of arteries and arterioles, uns pecified October 01, 2024 4:29pm PAIN AND SWELLING October 02, 2024 12:51 pm PAIN/SWELLING October 02, 2024 12:59 pm GI BLEED, ABLA, CHEST PAIN/?HF EXAC October 07, 2024 11:42pm GI BLEED, ABLA, CHEST PAIN/?HF EXAC October 07, 2024 11:57pm GI BLEED, ABLA, CHEST PAIN/?HF EXAC October 08, 2024 8:36am GI BLEED, ABLA, CHEST PAIN/?HF EXAC October 08, 2024 3:57pm GI BLEED, ABLA, CHEST PAIN/?HF EXAC October 08, 2024 6:38pm GI BLEED, ABLA, CHEST PAIN/?HF EXAC October 09, 2024 8:26am GI BLEED, ABLA, CHEST PAIN/?HF EXAC October 09, 2024 8:49am GI BLEED, ABLA, CHEST PAIN/?HF EXAC October 09, 2024 11:30am GI BLEED, ABLA, CHEST PAIN/?HF EXAC October 10, 2024 8:08am Discuss CTA October 31, 2024 1:48p m SURGERY CLEARANCE December 13, 2024 9: 22am Reason for Visit Admit Date Gastric ulcer August 22, 2024 11: 25am GERD (gastroesophageal reflux disease) J 2024 11:42pm Iron deficiency anemia October 07, 2024 11 :42pm Aortic valve stenosis October 07, 2024 11: 42pm ABLA (acute blood loss anemia) October 07, 2024 11:42pm Acute upper GI bleed October 07, 2024 11:4 2pm Chest pain October 07, 2024 11:42 pm Gastric ulcer October 07, 2024 11:42 pm GI bleed October 07, 2024 11:42 pm 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) October 07, 2024 11:42pm Subendocardial ischemia October 07, 2024 1 1:42pm Warfarin-induced coagulopathy October 07, 2024 11:42pm (HFpEF) heart failure with preserved eje ction fraction October 07, 2024 11:42pm Atrial fibrillation October 07, 2024 11:42 pm Factor V Leiden October 07, 2024 11:42 pm Hypertension October 07, 2024 11:42 pm Pleural effusion, left October 07, 2024 11 :42pm Carotid artery disease October 31, 2024 1: 48pm Anticoagulant long-term use December 13, 2024 9:22am Aortic valve stenosis December 13, 2024 9:22am Chronic a-fib December 13, 2024 9: 22am Hyperlipidemia December 13, 2024 9: 22am Peripheral vascular disease December 13, 2024 9:22am Family History No Family History Records Found [...] or prosecute any alcohol or drug abuse patient.[facility] the event this information is protected by the Federal Confidentiality of Alcohol and Drug Abuse Patient Records regulations: The Federal rules restrict any use of the information to criminally investigate or prosecute any alcohol or drug abuse patient.[facility]In the event this information is protected by the Federal Confidentiality of Alcohol and Drug Abuse Patient Records regulations: The Federal rules restrict any use of the information to criminally investigate or prosecute any alcohol or drug abuse patient.[facility]In the event this information is protected by the Federal Confidentiality of Alcohol and Drug Abuse Patient Records regulations: The Federal rules restrict any use of the information to criminally investigate or prosecute any alcohol or drug abuse patient.[facility]In the event this information is protected by the Federal Confidentiality of Alcohol and Drug Abuse Patient Records regulations: The Federal rules restrict any use of the information to criminally investigate or prosecute any alcohol or drug abuse patient.[facility]In the event this information is protected by the Federal Confidentiality of Alcohol and Drug Abuse Patient Records regulations: The Federal rules restrict any use of the information to criminally investigate or prosecute any alcohol or drug abuse patient.[facility]In the event this information is protected by the Federal Confidentiality of Alcohol and Drug Abuse Patient Records regulations: The Federal rules restrict any use of the information to criminally investigate or prosecute any alcohol or drug abuse patient.[facility]In the event this information is protected by the Federal Confidentiality of Alcohol and Drug Abuse Patient Records regulations: The Federal rules restrict any use of the information to criminally investigate or prosecute any alcohol or drug abuse patient.[facility]In the event this information is protected by the Federal Confidentiality of Alcohol and Drug Abuse Patient Records regulations: The Federal rules restrict any use of the information to criminally investigate or prosecute any alcohol or drug abuse patient.[facility] HospitalIn the event this information is protected by the Federal Confidentiality of Alcohol and Drug Abuse Patient Records regulations: The Federal rules restrict any use of the information to criminally investigate or prosecute any alcohol or drug abuse patient.[facility]In the event this information is protected by the Federal Confidentiality of Alcohol and Drug Abuse Patient Records regulations: The Federal rules restrict any use of the information to criminally investigate or prosecute any alcohol or drug abuse patient.[facility] HospitalIn the event this information is protected by the Federal Confidentiality of Alcohol and Drug Abuse Patient Records regulations: The Federal rules restrict any use of the information to criminally investigate or prosecute any alcohol or drug abuse patient.[facility]In the event this information is protected by the Federal Confidentiality of Alcohol and Drug Abuse Patient Records regulations: The Federal rules restrict any use of the information to criminally investigate or prosecute any alcohol or drug abuse patient.[facility]In the event this information is protected by the Federal Confidentiality of Alcohol and Drug Abuse Patient Records regulations: The Federal rules restrict any use of the information to criminally investigate or prosecute any alcohol or drug abuse patient.[facility] HospitalIn the event this information is protected by the Federal Confidentiality of Alcohol and Drug Abuse Patient Records regulations: The Federal rules restrict any use of the information to criminally investigate or prosecute any alcohol or drug abuse patient.[facility] HospitalIn the event this information is protected by the Federal Confidentiality of Alcohol and Drug Abuse Patient Records regulations: The Federal rules restrict any use of the information to criminally investigate or prosecute any alcohol or drug abuse patient.[facility] HospitalIn the event this information is protected by the Federal Confidentiality of Alcohol and Drug Abuse Patient Records regulations: The Federal rules restrict any use of the information to criminally investigate or prosecute any alcohol or drug abuse patient.[facility] HospitalIn the event this information is protected by the Federal Confidentiality of Alcohol and Drug Abuse Patient Records regulations: The Federal rules restrict any use of the information to criminally investigate or prosecute any alcohol or drug abuse patient.[facility] HospitalIn the event this information is protected by the Federal Confidentiality of Alcohol and Drug Abuse Patient Records regulations: The Federal rules restrict any use of the information to criminally investigate or prosecute any alcohol or drug abuse patient.[facility] HospitalIn the event this information is protected by the Federal Confidentiality of Alcohol and Drug Abuse Patient Records regulations: The Federal rules restrict any use of the information to criminally investigate or prosecute any alcohol or drug abuse patient.[facility] HospitalIn the event this information is protected by the Federal Confidentiality of Alcohol and Drug Abuse Patient Records regulations: The Federal rules restrict any use of the information to criminally investigate or prosecute any alcohol or drug abuse patient.[facility] HospitalIn the event this information is protected by the Federal Confidentiality of Alcohol and Drug Abuse Patient Records regulations: The Federal rules restrict any use of the information to criminally investigate or prosecute any alcohol or drug abuse patient.[facility] HospitalIn the event this information is protected by the Federal Confidentiality of Alcohol and Drug Abuse Patient Records regulations: The Federal rules restrict any use of the information to criminally investigate or prosecute any alcohol or drug abuse patient.[facility] HospitalIn the event this information is protected by the Federal Confidentiality of Alcohol and Drug Abuse Patient Records regulations: The Federal rules restrict any use of the information to criminally investigate or prosecute any alcohol or drug abuse patient.[facility] HospitalIn the event this information is protected by the Federal Confidentiality of Alcohol and Drug Abuse Patient Records regulations: The Federal rules restrict any use of the information to criminally investigate or prosecute any alcohol or drug abuse patient.[facility] HospitalIn the event this information is protected by the Federal Confidentiality of Alcohol and Drug Abuse Patient Records regulations: The Federal rules restrict any use of the information to criminally investigate or prosecute any alcohol or drug abuse patient.[facility] HospitalIn the event this information is protected by the Federal Confidentiality of Alcohol and Drug Abuse Patient Records regulations: The Federal rules restrict any use of the information to criminally investigate or prosecute any alcohol or drug abuse patient.[facility] HospitalIn the event this information is protected by the Federal Confidentiality of Alcohol and Drug Abuse Patient Records regulations: The Federal rules restrict any use of the information to criminally investigate or prosecute any alcohol or drug abuse patient.[facility] HospitalIn the event this information is protected by the Federal Confidentiality of Alcohol and Drug Abuse Patient Records regulations: The Federal rules restrict any use of the information to criminally investigate or prosecute any alcohol or drug abuse patient.[facility] HospitalIn the event this information is protected by the Federal Confidentiality of Alcohol and Drug Abuse Patient Records regulations: The Federal rules restrict any use of the information to criminally investigate or prosecute any alcohol or drug abuse patient.[facility] HospitalIn the event this information is protected by the Federal Confidentiality of Alcohol and Drug Abuse Patient Records regulations: The Federal rules restrict any use of the information to criminally investigate or prosecute any alcohol or drug abuse patient.[facility] HospitalIn the event this information is protected by the Federal Confidentiality of Alcohol and Drug Abuse Patient Records regulations: The Federal rules restrict any use of the information to criminally investigate or prosecute any alcohol or drug abuse patient.[facility] HospitalIn the event this information is protected by the Federal Confidentiality of Alcohol and Drug Abuse Patient Records regulations: The Federal rules restrict any use of the information to criminally investigate or prosecute any alcohol or drug abuse patient.[facility] HospitalIn the event this information is protected by the Federal Confidentiality of Alcohol and Drug Abuse Patient Records regulations: The Federal rules restrict any use of the information to criminally investigate or prosecute any alcohol or drug abuse patient.[facility] HospitalIn the event this information is protected by the Federal Confidentiality of Alcohol and Drug Abuse Patient Records regulations: The Federal rules restrict any use of the information to criminally investigate or prosecute any alcohol or drug abuse patient.[facility] HospitalIn the event this information is protected by the Federal Confidentiality of Alcohol and Drug Abuse Patient Records regulations: The Federal rules restrict any use of the information to criminally investigate or prosecute any alcohol or drug abuse patient.[facility] HospitalIn the event this information is protected by the Federal Confidentiality of Alcohol and Drug Abuse Patient Records regulations: The Federal rules restrict any use of the information to criminally investigate or prosecute any alcohol or drug abuse patient.[facility] HospitalIn the event this information is protected by the Federal Confidentiality of Alcohol and Drug Abuse Patient Records regulations: The Federal rules restrict any use of the information to criminally investigate or prosecute any alcohol or drug abuse patient.[facility] HospitalIn the event this information is protected by the Federal Confidentiality of Alcohol and Drug Abuse Patient Records regulations: The Federal rules restrict any use of the information to criminally investigate or prosecute any alcohol or drug abuse patient.[facility] HospitalIn the event this information is protected by the Federal Confidentiality of Alcohol and Drug Abuse Patient Records regulations: The Federal rules restrict any use of the information to criminally investigate or prosecute any alcohol or drug abuse patient.[facility] HospitalIn the event this information is protected by the Federal Confidentiality of Alcohol and Drug Abuse Patient Records regulations: The Federal rules restrict any use of the information to criminally investigate or prosecute any alcohol or drug abuse patient.[facility] HospitalIn the event this information is protected by the Federal Confidentiality of Alcohol and Drug Abuse Patient Records regulations: The Federal rules restrict any use of the information to criminally investigate or prosecute any alcohol or drug abuse patient.[facility] HospitalIn the event this information is protected by the Federal Confidentiality of Alcohol and Drug Abuse Patient Records regulations: The Federal rules restrict any use of the information to criminally investigate or prosecute any alcohol or drug abuse patient.[facility] HospitalIn the event this information is protected by the Federal Confidentiality of Alcohol and Drug Abuse Patient Records regulations: The Federal rules restrict any use of the information to criminally investigate or prosecute any alcohol or drug abuse patient.[facility] HospitalIn the event this information is protected by the Federal Confidentiality of Alcohol and Drug Abuse Patient Records regulations: The Federal rules restrict any use of the information to criminally investigate or prosecute any alcohol or drug abuse patient.[facility]In the event this information is protected by the Federal Confidentiality of Alcohol and Drug Abuse Patient Records regulations: The Federal rules restrict any use of the information to criminally investigate or prosecute any alcohol or drug abuse patient.[facility] HospitalIn the event this information is protected by the Federal Confidentiality of Alcohol and Drug Abuse Patient Records regulations: The Federal rules restrict any use of the information to criminally investigate or prosecute any alcohol or drug abuse patient.[facility] HospitalIn the event this information is protected by the Federal Confidentiality of Alcohol and Drug Abuse Patient Records regulations: The Federal rules restrict any use of the information to criminally investigate or prosecute any alcohol or drug abuse patient.[facility] HospitalIn the event this information is protected by the Federal Confidentiality of Alcohol and Drug Abuse Patient Records regulations: The Federal rules restrict any use of the information to criminally investigate or prosecute any alcohol or drug abuse patient.[facility] HospitalIn the event this information is protected by the Federal Confidentiality of Alcohol and Drug Abuse Patient Records regulations: The Federal rules restrict any use of the information to criminally investigate or prosecute any alcohol or drug abuse patient.[facility] HospitalIn the event this information is protected by the Federal Confidentiality of Alcohol and Drug Abuse Patient Records regulations: The Federal rules restrict any use of the information to criminally investigate or prosecute any alcohol or drug abuse patient.[facility] HospitalIn the event this information is protected by the Federal Confidentiality of Alcohol and Drug Abuse Patient Records regulations: The Federal rules restrict any use of the information to criminally investigate or prosecute any alcohol or drug abuse patient.[facility] HospitalIn the event this information is protected by the Federal Confidentiality of Alcohol and Drug Abuse Patient Records regulations: The Federal rules restrict any use of the information to criminally investigate or prosecute any alcohol or drug abuse patient.[facility] HospitalIn the event this information is protected by the Federal Confidentiality of Alcohol and Drug Abuse Patient Records regulations: The Federal rules restrict any use of the information to criminally investigate or prosecute any alcohol or drug abuse patient.[facility] HospitalIn the event this information is protected by the Federal Confidentiality of Alcohol and Drug Abuse Patient Records regulations: The Federal rules restrict any use of the information to criminally investigate or prosecute any alcohol or drug abuse patient.[facility] HospitalIn the event this information is protected by the Federal Confidentiality of Alcohol and Drug Abuse Patient Records regulations: The Federal rules restrict any use of the information to criminally investigate or prosecute any alcohol or drug abuse patient.[facility] HospitalIn the event this information is protected by the Federal Confidentiality of Alcohol and Drug Abuse Patient Records regulations: The Federal rules restrict any use of the information to criminally investigate or prosecute any alcohol or drug abuse patient.[facility] HospitalIn the event this information is protected by the Federal Confidentiality of Alcohol and Drug Abuse Patient Records regulations: The Federal rules restrict any use of the information to criminally investigate or prosecute any alcohol or drug abuse patient.[facility] HospitalIn the event this information is protected by the Federal Confidentiality of Alcohol and Drug Abuse Patient Records regulations: The Federal rules restrict any use of the information to criminally investigate or prosecute any alcohol or drug abuse patient.[facility] HospitalIn the event this information is protected by the Federal Confidentiality of Alcohol and Drug Abuse Patient Records regulations: The Federal rules restrict any use of the information to criminally investigate or prosecute any alcohol or drug abuse patient.[facility] HospitalIn the event this information is protected by the Federal Confidentiality of Alcohol and Drug Abuse Patient Records regulations: The Federal rules restrict any use of the information to criminally investigate or prosecute any alcohol or drug abuse patient.[facility] HospitalIn the event this information is protected by the Federal Confidentiality of Alcohol and Drug Abuse Patient Records regulations: The Federal rules restrict any use of the information to criminally investigate or prosecute any alcohol or drug abuse patient.[facility] HospitalIn the event this information is protected by the Federal Confidentiality of Alcohol and Drug Abuse Patient Records regulations: The Federal rules restrict any use of the information to criminally investigate or prosecute any alcohol or drug abuse patient.[facility] HospitalIn the event this information is protected by the Federal Confidentiality of Alcohol and Drug Abuse Patient Records regulations: The Federal rules restrict any use of the information to criminally investigate or prosecute any alcohol or drug abuse patient.[facility] HospitalIn the event this information is protected by the Federal Confidentiality of Alcohol and Drug Abuse Patient Records regulations: The Federal rules restrict any use of the information to criminally investigate or prosecute any alcohol or drug abuse patient.[facility] HospitalIn the event this information is protected by the Federal Confidentiality of Alcohol and Drug Abuse Patient Records regulations: The Federal rules restrict any use of the information to criminally investigate or prosecute any alcohol or drug abuse patient.[facility] HospitalIn the event this information is protected by the Federal Confidentiality of Alcohol and Drug Abuse Patient Records regulations: The Federal rules restrict any use of the information to criminally investigate or prosecute any alcohol or drug abuse patient.[facility] HospitalIn the event this information is protected by the Federal Confidentiality of Alcohol and Drug Abuse Patient Records regulations: The Federal rules restrict any use of the information to criminally investigate or prosecute any alcohol or drug abuse patient.[facility] HospitalIn the event this information is protected by the Federal Confidentiality of Alcohol and Drug Abuse Patient Records regulations: The Federal rules restrict any use of the information to criminally investigate or prosecute any alcohol or drug abuse patient.[facility] HospitalIn the event this information is protected by the Federal Confidentiality of Alcohol and Drug Abuse Patient Records regulations: The Federal rules restrict any use of the information to criminally investigate or prosecute any alcohol or drug abuse patient.[facility] HospitalIn the event this information is protected by the Federal Confidentiality of Alcohol and Drug Abuse Patient Records regulations: The Federal rules restrict any use of the information to criminally investigate or prosecute any alcohol or drug abuse patient.[facility] HospitalIn the event this information is protected by the Federal Confidentiality of Alcohol and Drug Abuse Patient Records regulations: The Federal rules restrict any use of the information to criminally investigate or prosecute any alcohol or drug abuse patient.[facility] HospitalIn the event this information is protected by the Federal Confidentiality of Alcohol and Drug Abuse Patient Records regulations: The Federal rules restrict any use of the information to criminally investigate or prosecute any alcohol or drug abuse patient.[facility] HospitalIn the event this information is protected by the Federal Confidentiality of Alcohol and Drug Abuse Patient Records regulations: The Federal rules restrict any use of the information to criminally investigate or prosecute any alcohol or drug abuse patient.[facility] HospitalIn the event this information is protected by the Federal Confidentiality of Alcohol and Drug Abuse Patient Records regulations: The Federal rules restrict any use of the information to criminally investigate or prosecute any alcohol or drug abuse patient.[facility] HospitalIn the event this information is protected by the Federal Confidentiality of Alcohol and Drug Abuse Patient Records regulations: The Federal rules restrict any use of the information to criminally investigate or prosecute any alcohol or drug abuse patient.[facility] HospitalIn the event this information is protected by the Federal Confidentiality of Alcohol and Drug Abuse Patient Records regulations: The Federal rules restrict any use of the information to criminally investigate or prosecute any alcohol or drug abuse patient.[facility] HospitalIn the event this information is protected by the Federal Confidentiality of Alcohol and Drug Abuse Patient Records regulations: The Federal rules restrict any use of the information to criminally investigate or prosecute any alcohol or drug abuse patient.[facility] HospitalIn the event this information is protected by the Federal Confidentiality of Alcohol and Drug Abuse Patient Records regulations: The Federal rules restrict any use of the information to criminally investigate or prosecute any alcohol or drug abuse patient.[facility] HospitalIn the event this information is protected by the Federal Confidentiality of Alcohol and Drug Abuse Patient Records regulations: The Federal rules restrict any use of the information to criminally investigate or prosecute any alcohol or drug abuse patient.[facility] HospitalIn the event this information is protected by the Federal Confidentiality of Alcohol and Drug Abuse Patient Records regulations: The Federal rules restrict any use of the information to criminally investigate or prosecute any alcohol or drug abuse patient.[facility] HospitalIn the event this information is protected by the Federal Confidentiality of Alcohol and Drug Abuse Patient Records regulations: The Federal rules restrict any use of the information to criminally investigate or prosecute any alcohol or drug abuse patient.[facility] HospitalIn the event this information is protected by the Federal Confidentiality of Alcohol and Drug Abuse Patient Records regulations: The Federal rules restrict any use of the information to criminally investigate or prosecute any alcohol or drug abuse patient.[facility] HospitalIn the event this information is protected by the Federal Confidentiality of Alcohol and Drug Abuse Patient Records regulations: The Federal rules restrict any use of the information to criminally investigate or prosecute any alcohol or drug abuse patient.[facility] HospitalIn the event this information is protected by the Federal Confidentiality of Alcohol and Drug Abuse Patient Records regulations: The Federal rules restrict any use of the information to criminally investigate or prosecute any alcohol or drug abuse patient.[facility] HospitalIn the event this information is protected by the Federal Confidentiality of Alcohol and Drug Abuse Patient Records regulations: The Federal rules restrict any use of the information to criminally investigate or prosecute any alcohol or drug abuse patient.[facility] HospitalIn the event this information is protected by the Federal Confidentiality of Alcohol and Drug Abuse Patient Records regulations: The Federal rules restrict any use of the information to criminally investigate or prosecute any alcohol or drug abuse patient.[facility] HospitalIn the event this information is protected by the Federal Confidentiality of Alcohol and Drug Abuse Patient Records regulations: The Federal rules restrict any use of the information to criminally investigate or prosecute any alcohol or drug abuse patient.[facility] HospitalIn the event this information is protected by the Federal Confidentiality of Alcohol and Drug Abuse Patient Records regulations: The Federal rules restrict any use of the information to criminally investigate or prosecute any alcohol or drug abuse patient.[facility] HospitalIn the event this information is protected by the Federal Confidentiality of Alcohol and Drug Abuse Patient Records regulations: The Federal rules restrict any use of the information to criminally investigate or prosecute any alcohol or drug abuse patient.[facility] HospitalIn the event this information is protected by the Federal Confidentiality of Alcohol and Drug Abuse Patient Records regulations: The Federal rules restrict any use of the information to criminally investigate or prosecute any alcohol or drug abuse patient.[facility] HospitalIn the event this information is protected by the Federal Confidentiality of Alcohol and Drug Abuse Patient Records regulations: The Federal rules restrict any use of the information to criminally investigate or prosecute any alcohol or drug abuse patient.[facility] HospitalIn the event this information is protected by the Federal Confidentiality of Alcohol and Drug Abuse Patient Records regulations: The Federal rules restrict any use of the information to criminally investigate or prosecute any alcohol or drug abuse patient.[facility] HospitalIn the event this information is protected by the Federal Confidentiality of Alcohol and Drug Abuse Patient Records regulations: The Federal rules restrict any use of the information to criminally investigate or prosecute any alcohol or drug abuse patient.[facility] HospitalIn the event this information is protected by the Federal Confidentiality of Alcohol and Drug Abuse Patient Records regulations: The Federal rules restrict any use of the information to criminally investigate or prosecute any alcohol or drug abuse patient.[facility] HospitalIn the event this information is protected by the Federal Confidentiality of Alcohol and Drug Abuse Patient Records regulations: The Federal rules restrict any use of the information to criminally investigate or prosecute any alcohol or drug abuse patient.[facility] HospitalIn the event this information is protected by the Federal Confidentiality of Alcohol and Drug Abuse Patient Records regulations: The Federal rules restrict any use of the information to criminally investigate or prosecute any alcohol or drug abuse patient.[facility] HospitalIn the event this information is protected by the Federal Confidentiality of Alcohol and Drug Abuse Patient Records regulations: The Federal rules restrict any use of the information to criminally investigate or prosecute any alcohol or drug abuse patient.[facility] HospitalIn the event this information is protected by the Federal Confidentiality of Alcohol and Drug Abuse Patient Records regulations: The Federal rules restrict any use of the information to criminally investigate or prosecute any alcohol or drug abuse patient.[facility] HospitalIn the event this information is protected by the Federal Confidentiality of Alcohol and Drug Abuse Patient Records regulations: The Federal rules restrict any use of the information to criminally investigate or prosecute any alcohol or drug abuse patient.[facility] HospitalIn the event this information is protected by the Federal Confidentiality of Alcohol and Drug Abuse Patient Records regulations: The Federal rules restrict any use of the information to criminally investigate or prosecute any alcohol or drug abuse patient.[facility] HospitalIn the event this information is protected by the Federal Confidentiality of Alcohol and Drug Abuse Patient Records regulations: The Federal rules restrict any use of the information to criminally investigate or prosecute any alcohol or drug abuse patient.[facility] HospitalIn the event this information is protected by the Federal Confidentiality of Alcohol and Drug Abuse Patient Records regulations: The Federal rules restrict any use of the information to criminally investigate or prosecute any alcohol or drug abuse patient.[facility] HospitalIn the event this information is protected by the Federal Confidentiality of Alcohol and Drug Abuse Patient Records regulations: The Federal rules restrict any use of the information to criminally investigate or prosecute any alcohol or drug abuse patient.[facility] HospitalIn the event this information is protected by the Federal Confidentiality of Alcohol and Drug Abuse Patient Records regulations: The Federal rules restrict any use of the information to criminally investigate or prosecute any alcohol or drug abuse patient.[facility] HospitalIn the event this information is protected by the Federal Confidentiality of Alcohol and Drug Abuse Patient Records regulations: The Federal rules restrict any use of the information to criminally investigate or prosecute any alcohol or drug abuse patient.[facility] HospitalIn the event this information is protected by the Federal Confidentiality of Alcohol and Drug Abuse Patient Records regulations: The Federal rules restrict any use of the information to criminally investigate or prosecute any alcohol or drug abuse patient.[facility] HospitalIn the event this information is protected by the Federal Confidentiality of Alcohol and Drug Abuse Patient Records regulations: The Federal rules restrict any use of the information to criminally investigate or prosecute any alcohol or drug abuse patient.[facility] HospitalIn the event this information is protected by the Federal Confidentiality of Alcohol and Drug Abuse Patient Records regulations: The Federal rules restrict any use of the information to criminally investigate or prosecute any alcohol or drug abuse patient.[facility] HospitalIn the event this information is protected by the Federal Confidentiality of Alcohol and Drug Abuse Patient Records regulations: The Federal rules restrict any use of the information to criminally investigate or prosecute any alcohol or drug abuse patient.[facility] HospitalIn the event this information is protected by the Federal Confidentiality of Alcohol and Drug Abuse Patient Records regulations: The Federal rules restrict any use of the information to criminally investigate or prosecute any alcohol or drug abuse patient.[facility] HospitalIn the event this information is protected by the Federal Confidentiality of Alcohol and Drug Abuse Patient Records regulations: The Federal rules restrict any use of the information to criminally investigate or prosecute any alcohol or drug abuse patient.[facility] HospitalIn the event this information is protected by the Federal Confidentiality of Alcohol and Drug Abuse Patient Records regulations: The Federal rules restrict any use of the information to criminally investigate or prosecute any alcohol or drug abuse patient.[facility] HospitalIn the event this information is protected by the Federal Confidentiality of Alcohol and Drug Abuse Patient Records regulations: The Federal rules restrict any use of the information to criminally investigate or prosecute any alcohol or drug abuse patient.[facility] HospitalIn the event this information is protected by the Federal Confidentiality of Alcohol and Drug Abuse Patient Records regulations: The Federal rules restrict any use of the information to criminally investigate or prosecute any alcohol or drug abuse patient.[facility] HospitalIn the event this information is protected by the Federal Confidentiality of Alcohol and Drug Abuse Patient Records regulations: The Federal rules restrict any use of the information to criminally investigate or prosecute any alcohol or drug abuse patient.[facility] HospitalIn the event this information is protected by the Federal Confidentiality of Alcohol and Drug Abuse Patient Records regulations: The Federal rules restrict any use of the information to criminally investigate or prosecute any alcohol or drug abuse patient.[facility] HospitalIn the event this information is protected by the Federal Confidentiality of Alcohol and Drug Abuse Patient Records regulations: The Federal rules restrict any use of the information to criminally investigate or prosecute any alcohol or drug abuse patient.[facility] HospitalIn the event this information is protected by the Federal Confidentiality of Alcohol and Drug Abuse Patient Records regulations: The Federal rules restrict any use of the information to criminally investigate or prosecute any alcohol or drug abuse patient.[facility] HospitalIn the event this information is protected by the Federal Confidentiality of Alcohol and Drug Abuse Patient Records regulations: The Federal rules restrict any use of the information to criminally investigate or prosecute any alcohol or drug abuse patient.[facility] HospitalIn the event this information is protected by the Federal Confidentiality of Alcohol and Drug Abuse Patient Records regulations: The Federal rules restrict any use of the information to criminally investigate or prosecute any alcohol or drug abuse patient.[facility] HospitalIn the event this information is protected by the Federal Confidentiality of Alcohol and Drug Abuse Patient Records regulations: The Federal rules restrict any use of the information to criminally investigate or prosecute any alcohol or drug abuse patient.[facility] HospitalIn the event this information is protected by the Federal Confidentiality of Alcohol and Drug Abuse Patient Records regulations: The Federal rules restrict any use of the information to criminally investigate or prosecute any alcohol or drug abuse patient.[facility] HospitalIn the event this information is protected by the Federal Confidentiality of Alcohol and Drug Abuse Patient Records regulations: The Federal rules restrict any use of the information to criminally investigate or prosecute any alcohol or drug abuse patient.[facility] HospitalIn the event this information is protected by the Federal Confidentiality of Alcohol and Drug Abuse Patient Records regulations: The Federal rules restrict any use of the information to criminally investigate or prosecute any alcohol or drug abuse patient.[facility] HospitalIn the event this information is protected by the Federal Confidentiality of Alcohol and Drug Abuse Patient Records regulations: The Federal rules restrict any use of the information to criminally investigate or prosecute any alcohol or drug abuse patient.[facility] HospitalIn the event this information is protected by the Federal Confidentiality of Alcohol and Drug Abuse Patient Records regulations: The Federal rules restrict any use of the information to criminally investigate or prosecute any alcohol or drug abuse patient.[facility] Reason for Visit (unrecogniz ed section and content) Reason Comments New [facility] at [facility] dx CHF and a-fib Specialty Diagnoses / Procedures Referred By Gilbert vaughn Referred To Contact Gastroenterology Diagnoses Transaminitis Procedures CONSULT TO GASTROENTEROLOGY OFFICE/OUTPATIENT [facility] MDM 60 MINUTES Anastasiia Colón, [employer] [address] [place] [address] [address] [address] Referral ID Status Reason Start Date Expiration Date Visits Requested Visits Authorized [id number] Authorized PCP Requested Referral 10/12/2023 05/01/2024 99 99 Reason Comments Established Patient Specialty Diagnoses / Procedures Referred By Gilbert vaughn Referred To Contact Peripheral Vascular / VASCULAR SURGERY Diagnoses Follow-up exam 6 MONTH FOLLOW UP WITH CAROTID TESTING Procedures OFFICE/OUTPATIENT ESTABLISHED SF MDM 10 MIN OFFICE/OUTPATIENT ESTABLISHED LOW MDM 20 MIN OFFICE/OUTPATIENT ESTABLISHED MOD MDM 30 MIN OFFICE/OUTPATIENT ESTABLISHED HIGH MDM 40 MIN EST PATIENT Kierra Santiago MD [address] [place] [address] Daylin Delgado, [address] [place] [address] Referral ID Status Reason Start Date Expiration Date V isits Requested Visits Authorized [id number] Authorized 09/13/2023 05/01/2024 99 99 Reason Comments Follow Up Specialty Diagnoses / Procedures Referred By Gilbert vaughn Referred To Contact Vascular Surgery / VASCULAR SURGERY Diagnoses Carotid stenosis, asymptomatic, bilateral 3 MONTH FOLLOW UP WIHT CAROTID TESTING Procedures OFFICE/OUTPATIENT ESTABLISHED HIGH MDM 40-54 MIN EST PATIENT Pal Johnson MD [address] [place] [address] Pal Johnson MD [address] [place] [address] Referral ID Status Reason Start Date Expiration Date V isits Requested Visits Authorized [id number] Authorized 03/01/2023 05/01/2023 99 99 Reason Comments [...] NEW HIGH MDM 60-74 MINUTES Anastasiia Colón APRN.AMBROSIO [address] [place] [address] Referral ID Status Reason Start Date Expiration Date V isits Requested Visits Authorized [id number] Closed PCP Requested Referral 08/10/2022 08/10/2023 1 1 Specialty Diagnoses / Procedures Referred By Gilbert vaughn Referred To Contact Vascular Surgery / VASCULAR SURGERY Diagnoses carotid endart / dr delgado referral Procedures OFFICE/OUTPATIENT ESTABLISHED HIGH MDM 40-54 MIN EST PATIENT Daylin Delgado, DO [address] [address] Pal Johnson MD [address] [place] [address] Referral ID Status Reason Start Date Expiration Date Visits Re quested Visits Authorized [id number] Closed 11/10/2022 05/01/2023 1 1 Reason Onset [...] IVCON DIAGNOSTIC COMPUTED TOMOGRAPHY THORAX W/O CNTRST Dyalin Delgado, DO [id number] Imaging [facility] Referral ID Status Reason Start Date Expiration Date V isits Requested Visits Authorized [id number] Closed Auto-Generate d Referral 11/08/2022 12/08/2023 [address] Specialty Diagnoses / Procedures Referred By Contac t Referred To Contact CT IMAGING Diagnoses Occlusion and stenosis of unspecified carotid artery Procedures CTA NECK W IVCON CT ANGIOGRAPHY NECK W/CONTRAST/NONCONTRAST Daylin Delgado, DO [address] [place] [address] Ct Imaging [facility] Referral ID Status Reason Start Date Expiration Date V isits Requested Visits Authorized [id number] Closed Auto-Generate d Referral 09/21/2022 10/21/2023 1 [...] DSME/MNT MEDICAL NUTRITION ASSMT&IVNTJ INDIV EACH 15 MD MEDICAL NUTRITION ASSMT&IVNTJ INDIV EACH 15 MD MEDICAL NUTRITION ASSMT&IVNTJ INDIV EACH 15 MD MEDICAL NUTRITION ASSMT&IVNTJ INDIV EACH 15 MD Anastasiia Colón, NEWS INTERNSHIP.BLUEPRINT MAKER [address] [place] [address] [address] [place] [address] Referral ID Status Reason Start Date Expiration Date V isits Requested Visits Authorized [id number] Closed PCP Requested Referral 10/12/2023 05/01/2024 1 1 Reason Comments Patient Update Reason Comments Radiology CT Specialty Diagnoses / Procedures Referred By Contac t Referred To Contact CT IMAGING Diagnoses Lung nodules Procedures CT CHEST WO IVCON DIAGNOSTIC COMPUTED TOMOGRAPHY THORAX W/O CNTRST Anastasiia Colón, NEWS INTERNSHIP.BLUEPRINT MAKER [address] [place] [address] [place] [address] Referral ID Status Reason Start Date Expiration Date V isits Requested Visits Authorized [id number] Closed Auto-Generate d Referral 05/02/2023 05/01/2024 1 [...] QUADRANT US ABDOMINAL REAL TIME W/IMAGE LIMITED Tara Benavides, NEWS INTERNSHIP.POPULATION HEALTH COACH [address] [facility] [place] [address] [place] [address] Referral ID Status Reason Start Date Expiration Date V isits Requested Visits Authorized [id number] Closed Auto-Generate d Referral 11/18/2023 12/17/2024 1 1 Reason Comments Sinus Problem bodyaches, nausea, d iarrhea x 1 day Reason Comments Labs needed? Reason Onset Date Comments Refill Request 12/30/2023 Reason Onset Date Comments Transition Of Care 01/14/2024 Reason Comments Home Health Orders Reason Comments [facility] PT POC Reason Comments Home Health Point of Care Results Reason Comments Hospital F/U Reason Comments F/U 3 Month Labs prior Reason Comments Hospital F/U Reason Comments Home Care Management Reason Comments Question Reason Comments Orders Reason Comments Physical Therapy Plan of Care Reason Comments [facility] HH - INR message Reason Comments Forms HH certificate plan of care 04/09/24 Reason Comments Established Patient Specialty Diagnoses / Procedures Referred By Contac t Referred To Contact Peripheral Vascular / VASCULAR SURGERY Diagnoses Encounter for follow-up examination after completed treatment for conditions other than malignant neoplasm follow up after testing Procedures OFFICE/OUTPATIENT ESTABLISHED HIGH MDM 40 MIN EST PATIENT Daylin Delgado, DO [address] [place] [address] Daylin Delgado, DO [address] [place] [address] Referral ID Status Reason Start Date Expiration Date V isits Requested Visits Authorized [id number] Authorized 05/04/2024 05/01/2025 99 99 Reason Comments [...] Reason Onset Date Comments Refill Request 08/06/2024 Reason Onset Date Comments Refill Request 10/19/2024 Reason Comments Medication Problem Glimepiride Reason Onset Date Comments Refill Request 11/15/2024 Care Teams (unrecognized sec tion and content) Polyethylene Bag Machine Operator Relationship Specialty Start Date End Date Kierra Santiago MD [address] [place], [place] [id number] PCP - General Internal Medicine 07/01/22 Polyethylene Bag Machine Operator Relationship Specialty Start Date End Date Kierra Santiago MD [address] [place], [place] [id number] PCP - General Internal Medicine 07/01/22 Polyethylene Bag Machine Operator Relationship Specialty Start Date End Date Kierra Santiago MD [address] [place] [address] PCP - General Internal Medicine 07/01/22 Polyethylene Bag Machine Operator Relationship Specialty Start Date End Date Kierra Santiago MD [address] [place] [address] PCP - General Internal Medicine 07/01/22 Polyethylene Bag Machine Operator Relationship Specialty Start Date End Date Kierra Santiago MD [address] [place] [address] PCP - General Internal Medicine 07/01/22 Polyethylene Bag Machine Operator Relationship Specialty Start Date End Date Kierra Santiago MD [address] [place] [address] PCP - General Internal Medicine 07/01/22 Polyethylene Bag Machine Operator Relationship Specialty Start Date End Date Kierra Santiago MD [address] [place] [address] PCP - General Internal Medicine 07/01/22 Polyethylene Bag Machine Operator Relationship Specialty Start Date End Date Kierra Santiago MD [address] [place] [address] PCP - General Internal Medicine 07/01/22 Polyethylene Bag Machine Operator Relationship Specialty Start Date End Date Kierra aSntiago MD [address] [place] [address] PCP - General Internal Medicine 07/01/22 Polyethylene Bag Machine Operator Relationship Specialty Start Date End Date Kierra Santiago MD [address] [place] [address] PCP - General Internal Medicine 07/01/22 Polyethylene Bag Machine Operator Relationship Specialty Start Date End Date Kierra Santiago MD [address] [place] [address] PCP - General Internal Medicine 07/01/22 Polyethylene Bag Machine Operator Relationship Specialty Start Date End Date Kierra Santiago MD [address] [place] [address] PCP - General Internal Medicine 07/01/22 Polyethylene Bag Machine Operator Relationship Specialty Start Date End Date Kierra Santiago MD [address] [place] [address] PCP - General Internal Medicine 07/01/22 Polyethylene Bag Machine Operator Relationship Specialty Start Date End Date Kierra Santiago MD [address] [place] [address] PCP - General Internal Medicine 07/01/22 Polyethylene Bag Machine Operator Relationship Specialty Start Date End Date Kierra Santiago MD [address] [place] [address] PCP - General Internal Medicine 07/01/22 Polyethylene Bag Machine Operator Relationship Specialty Start Date End Date Kierra Santiago MD [address] [place] [address] PCP - General Internal Medicine 07/01/22 Polyethylene Bag Machine Operator Relationship Specialty Start Date End Date Kierra Santiago MD [address] [place] [address] PCP - General Internal Medicine 07/01/22 Polyethylene Bag Machine Operator Relationship Specialty Start Date End Date Kierra Santiago MD [address] [place] [address] PCP - General Internal Medicine 07/01/22 Polyethylene Bag Machine Operator Relationship Specialty Start Date End Date Kierra Santiago MD [address] [place] [address] PCP - General Internal Medicine 07/01/22 Polyethylene Bag Machine Operator Relationship Specialty Start Date End Date Kierra Santiago MD [address] [place] [address] PCP - General Internal Medicine 07/01/22 Polyethylene Bag Machine Operator Relationship Specialty Start Date End Date Kierra Santiago MD [address] [place] [address] PCP - General Internal Medicine 07/01/22 Polyethylene Bag Machine Operator Relationship Specialty Start Date End Date Kierra Santiago MD [address] [place] [address] PCP - General Internal Medicine 07/01/22 Polyethylene Bag Machine Operator Relationship Specialty Start Date End Date Kierra Santiago MD [address] [place] [address] PCP - General Internal Medicine 07/01/22 Polyethylene Bag Machine Operator Relationship Specialty Start Date End Date Kierra Santiago MD [address] [place] [address] PCP - General Internal Medicine 07/01/22 Polyethylene Bag Machine Operator Relationship Specialty Start Date End Date Kierra Santiago MD [address] [place] [address] PCP - General Internal Medicine 07/01/22 Polyethylene Bag Machine Operator Relationship Specialty Start Date End Date Kierra Santiago MD [address] [place] [address] PCP - General Internal Medicine 07/01/22 Polyethylene Bag Machine Operator Relationship Specialty Start Date End Date Kierra Santiago MD [address] [place] [address] PCP - General Internal Medicine 07/01/22 Polyethylene Bag Machine Operator Relationship Specialty Start Date End Date Kierra Santiago MD [address] [place] [address] PCP - General Internal Medicine 07/01/22 Polyethylene Bag Machine Operator Relationship Specialty Start Date End Date Kierra Santiago MD [address] [place] [address] PCP - General Internal Medicine 07/01/22 Polyethylene Bag Machine Operator Relationship Specialty Start Date End Date Kierra Santiago MD [address] [place] [address] PCP - General Internal Medicine 07/01/22 Polyethylene Bag Machine Operator Relationship Specialty Start Date End Date Kierra Santiago MD [address] [place] [address] PCP - General Internal Medicine 07/01/22 Polyethylene Bag Machine Operator Relationship Specialty Start Date End Date Kierra Santiago MD [address] [place] [address] PCP - General Internal Medicine 07/01/22 Polyethylene Bag Machine Operator Relationship Specialty Start Date End Date Kierra Santiago MD [address] [place] [address] PCP - General Internal Medicine 07/01/22 Polyethylene Bag Machine Operator Relationship Specialty Start Date End Date Kierra Santiago MD [address] [place] [address] PCP - General Internal Medicine 07/01/22 Polyethylene Bag Machine Operator Relationship Specialty Start Date End Date Kierra Santiago MD [address] [place] [address] PCP - General Internal Medicine 07/01/22 Polyethylene Bag Machine Operator Relationship Specialty Start Date End Date Kierra Santiago MD [address] [place] [address] PCP - General Internal Medicine 07/01/22 Polyethylene Bag Machine Operator Relationship Specialty Start Date End Date Kierra Santiago MD [address] [place] [address] PCP - General Internal Medicine 07/01/22 Polyethylene Bag Machine Operator Relationship Specialty Start Date End Date Kierra Santiago MD [address] [place] [address] PCP - General Internal Medicine 07/01/22 Polyethylene Bag Machine Operator Relationship Specialty Start Date End Date Kierra Santiago MD [address] [place] [address] PCP - General Internal Medicine 07/01/22 Polyethylene Bag Machine Operator Relationship Specialty Start Date End Date Kierra Santiago MD [address] [place] [address] PCP - General Internal Medicine 07/01/22 Polyethylene Bag Machine Operator Relationship Specialty Start Date End Date Kierra Santiago MD [address] [place] [address] PCP - General Internal Medicine 07/01/22 Nancy Albert, XOCHILT [address] [facility] [place] [address] Primary Care Accredited Pharmacy Technician 01/06/24 Polyethylene Bag Machine Operator Relationship Specialty Start Date End Date Kierra Santiago MD [address] [place] [address] PCP - General Internal Medicine 07/01/22 Nancy Albert, XOCHILT [address] [place] [address] Primary Care Accredited Pharmacy Technician 01/06/24 Polyethylene Bag Machine Operator Relationship Specialty Start Date End Date Kierra Santiago MD [address] [place] [address] PCP - General Internal Medicine 07/01/22 Polyethylene Bag Machine Operator Relationship Specialty Start Date End Date Kierra Santiago MD [address] [place] [address] PCP - General Internal Medicine 07/01/22 Nancy Albert, XOCHILT [address] [place] [address] Primary Care Accredited Pharmacy Technician 01/06/24 01/23/24 Polyethylene Bag Machine Operator Relationship Specialty Start Date End Date Kierra Santiago MD [address] [place] [address] PCP - General Internal Medicine 07/01/22 Polyethylene Bag Machine Operator Relationship Specialty Start Date End Date Kierra Santiago MD [address] [place] [address] PCP - General Internal Medicine 07/01/22 Polyethylene Bag Machine Operator Relationship Specialty Start Date End Date Kierra Santiago MD [address] [place] [address] PCP - General Internal Medicine 07/01/22 Anastasiia Colón, SHANNAN.BLUEPRINT MAKER [address] [place] [address] Adz Worker Internal Medicine 04/09/24 Sheryl Reyes APRN.POPULATION HEALTH COACH [address] [place] [address] Adz Worker Internal Medicine 04/09/24 Polyethylene Bag Machine Operator Relationship Specialty Start Date End Date Kierra Santiago MD [address] [place] [address] PCP - General Internal Medicine 07/01/22 Anastasiia Colón, NEWS INTERNSHIP.BLUEPRINT MAKER [address] [place] [address] Adz Worker Internal Medicine 04/09/24 Sheryl Reyes APRN.POPULATION HEALTH COACH [address] [place] [address] Adz Worker Internal Medicine 04/09/24 Polyethylene Bag Machine Operator Relationship Specialty Start Date End Date Kierra Santiago MD [address] [place] [address] PCP - General Internal Medicine 07/01/22 Anastasiia Colón, NEWS INTERNSHIP.BLUEPRINT MAKER [address] [place] [address] Adz Worker Internal Medicine 04/09/24 Sheryl Reyes APRN.POPULATION HEALTH COACH [address] [place] [address] Adz Worker Internal Medicine 04/09/24 Polyethylene Bag Machine Operator Relationship Specialty Start Date End Date Kierra Santiago MD [address] [place] [address] PCP - General Internal Medicine 07/01/22 Anastasiia Colón, NEWS INTERNSHIP.BLUEPRINT MAKER [address] [place] [address] Adz Worker Internal Medicine 04/09/24 Sheryl Reyes NEWS INTERNSHIP.POPULATION HEALTH COACH [address] [place] [address] [facility] Internal Medicine 04/09/24 Polyethylene Bag Machine Operator Relationship Specialty Start Date End Date Kierra Santiago MD [address] [place] [address] PCP - General Internal Medicine 07/01/22 Anastasiia Colón, NEWS INTERNSHIP.BLUEPRINT MAKER [address] [place] [address] [facility] Internal Medicine 04/09/24 Sheryl Reyes NEWS INTERNSHIP.POPULATION HEALTH COACH [address] [place] [address] [facility] Internal Medicine 04/09/24 Polyethylene Bag Machine Operator Relationship Specialty Start Date End Date Kierra Santiago MD [address] [place] [address] PCP - General Internal Medicine 07/01/22 Anastasiia Colón, NEWS INTERNSHIP.BLUEPRINT MAKER [address] [place] [address] Adz Worker Internal Medicine 04/09/24 Sheryl Reyes NEWS INTERNSHIP.POPULATION HEALTH COACH [address] [place] [address] [facility] Internal Medicine 04/09/24 Polyethylene Bag Machine Operator Relationship Specialty Start Date End Date Kierra Santiago MD [address] [place] [address] PCP - General Internal Medicine 07/01/22 Anastasiia Colón, NEWS INTERNSHIP.BLUEPRINT MAKER [address] [place] [address] [facility] Internal Medicine 04/09/24 Sheryl Reyes NEWS INTERNSHIP.POPULATION HEALTH COACH [address] [place] [address] [facility] Internal Medicine 04/09/24 Polyethylene Bag Machine Operator Relationship Specialty Start Date End Date Kierra Santiago MD [address] [place] [address] PCP - General Internal Medicine 07/01/22 Anastasiia Colón, NEWS INTERNSHIP.BLUEPRINT MAKER [address] [place] [address] [facility] Internal Medicine 04/09/24 Sheryl Reyes NEWS INTERNSHIP.POPULATION HEALTH COACH [address] [place] [address] [facility] Internal Medicine 04/09/24 Polyethylene Bag Machine Operator Relationship Specialty Start Date End Date Kierra Santiago MD [address] [place] [address] PCP - General Internal Medicine 07/01/22 Anastasiia Colón, NEWS INTERNSHIP.BLUEPRINT MAKER [address] [place] [address] Adz Worker Internal Medicine 04/09/24 Sheryl Reyes NEWS INTERNSHIP.POPULATION HEALTH COACH [address] [place] [address] Adz Worker Internal Medicine 04/09/24 Polyethylene Bag Machine Operator Relationship Specialty Start Date End Date Kierra Santiago MD [address] [place] [address] PCP - General Internal Medicine 07/01/22 Anastasiia Colón, NEWS INTERNSHIP.BLUEPRINT MAKER [address] [place] [address] Adz Worker Internal Medicine 04/09/24 Sheryl Reyes NEWS INTERNSHIP.POPULATION HEALTH COACH [address] [place] [address] Adz Worker Internal Medicine 04/09/24 Polyethylene Bag Machine Operator Relationship Specialty Start Date End Date Kierra Santiago MD [address] [place] [address] PCP - General Internal Medicine 07/01/22 Anastasiia Colón, NEWS INTERNSHIP.BLUEPRINT MAKER [address] [place] [address] Adz Worker Internal Medicine 04/09/24 Sheryl Reyes APRN.POPULATION HEALTH COACH [address] [place] [address] Adz Worker Internal Medicine 04/09/24 Polyethylene Bag Machine Operator Relationship Specialty Start Date End Date Kierra Santiago MD [address] [place] [address] PCP - General Internal Medicine 07/01/22 Anastasiia Colón APRN.BLUEPRINT MAKER [address] [place] [address] Adz Worker Internal Medicine 04/09/24 Sheryl Reyes NEWS INTERNSHIP.POPULATION HEALTH COACH [address] [place] [address] Adz Worker Internal Medicine 04/09/24 Polyethylene Bag Machine Operator Relationship Specialty Start Date End Date Kierra Santiago MD [address] [place] [address] PCP - General Internal Medicine 07/01/22 Anastasiia Colón NEWS INTERNSHIP.BLUEPRINT MAKER [address] [place] [address] Adz Worker Internal Medicine 04/09/24 Sheryl Reyes APRN.POPULATION HEALTH COACH [address] [place] [address] Adz Worker Internal Medicine 04/09/24 Polyethylene Bag Machine Operator Relationship Specialty Start Date End Date Kierra Santiago MD [address] [place] [address] PCP - General Internal Medicine 07/01/22 Anastasiia Colón NEWS INTERNSHIP.BLUEPRINT MAKER [address] [place] [address] Adz Worker Internal Medicine 04/09/24 Sheryl Reyes APRN.POPULATION HEALTH COACH [address] [place] [address] Adz Worker Internal Medicine 04/09/24 Polyethylene Bag Machine Operator Relationship Specialty Start Date End Date Kierra Santiago MD [address] [place] [address] PCP - General Internal Medicine 07/01/22 Anastasiia Colón, NEWS INTERNSHIP.BLUEPRINT MAKER [address] [facility] [place] [address] Adz Worker Internal Medicine 04/09/24 Sheryl Reyes NEWS INTERNSHIP.POPULATION HEALTH COACH [address] [facility] [place] [address] [facility] Internal Medicine 04/09/24 Polyethylene Bag Machine Operator Relationship Specialty Start Date End Date Kierra Santiago MD [address] [facility] [place] [address] PCP - General Internal Medicine 07/01/22 Anastasiia Colón, NEWS INTERNSHIP.BLUEPRINT MAKER [address] [place] [address] Adz Worker Internal Medicine 04/09/24 Sheryl Reyes, NEWS INTERNSHIP.POPULATION HEALTH COACH [address] [facility] [place] [address] [facility] Internal Medicine 04/09/24 Polyethylene Bag Machine Operator Relationship Specialty Start Date End Date Kierra Santiago MD [address] [facility] [place] [address] PCP - General Internal Medicine 07/01/22 Anastasiia Colón, NEWS INTERNSHIP.BLUEPRINT MAKER [address] [facility] [place] [address] [facility] Internal Medicine 04/09/24 Sheryl Reyes, NEWS INTERNSHIP.POPULATION HEALTH COACH [address] [place] [address] [facility] Internal [facility] 04/09/24 Polyethylene Bag Machine Operator Relationship Specialty Start Date End Date Kierra Santiago MD [address] [place], [place] [address] PCP - General Internal Medicine 07/01/22 Anastasiia Colón, NEWS INTERNSHIP.BLUEPRINT MAKER [address] [place], [place] [address] [facility] Internal Medicine 04/09/24 Sheryl Reyes, NEWS INTERNSHIP.POPULATION HEALTH COACH [address] [place], [place] [address] [facility] Internal [facility] 04/09/24 Team Status: Active Member Role Status [...] 2024 End: June 20, 2024 Dominick Harrell ASBESTOS COVERER, ASBESTOS COVERER-C Attending Provider Active S tart: June 20, 2024 End: June 20, 2024 Team Status: Inactive Member Role Status Dates Dr. Kierra Santiago MD Primary Care Provider Active Start: July 10, 2024 End: July 10, 2024 Dominick Harrell ASBESTOS COVERER, ASBESTOS COVERER-C Attending Provider Active S tart: July 10, 2024 End: July 10, 2024 Dominick Harrell ASBESTOS COVERER, ASBESTOS COVERER-C Referring Provider Active S tart: July 10, 2024 End: July 10, 2024 Team Status: Inactive Member Role Status Dates Dr. Kierra Santiago MD Primary Care Provider Active Start: July 25, 2024 End: July 25, 2024 Dominick Harrell ASBESTOS COVERER, ASBESTOS COVERER-C Attending Provider Active S tart: July 25, 2024 End: July 25, 2024 Dominick Harrell ASBESTOS COVERER, ASBESTOS COVERER-C Referring Provider Active S tart: July 25, 2024 End: July 25, 2024 Polyethylene Bag Machine Operator Relationship Specialty Start Date End Date Kierra Santiago MD [address] [place] [address] PCP - General Internal Medicine 07/01/22 Anastasiia Colón, NEWS INTERNSHIP.BLUEPRINT MAKER [address] [place] [address] Adz Worker Internal Medicine 04/09/24 Sheryl Reyes NEWS INTERNSHIP.POPULATION HEALTH COACH [address] [place] [address] [facility] Internal Medicine 07/24/24 Polyethylene Bag Machine Operator Relationship Specialty Start Date End Date Kierra Santiago MD [address] [place] [address] PCP - General Internal Medicine 07/01/22 Anastasiia Colón, NEWS INTERNSHIP.BLUEPRINT MAKER [address] [place] [address] [facility] Internal Medicine 04/09/24 Sheryl Reyes NEWS INTERNSHIP.POPULATION HEALTH COACH [address] 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, [place] [address] PCP - General Internal Medicine 07/01/22 Anastasiia Colón APRN.BLUEPRINT MAKER [address] [facility], [place] [address] Adz Worker Internal Medicine 04/09/24 Sheryl Reyes NEWS INTERNSHIP.POPULATION HEALTH COACH [address] [facility], [place] [address] [facility] Internal Medicine 07/24/24 Team Status: Inactive Member Role Status Dates Dr. Kierra Santiago MD Primary Care Provider Active Start: August 15, 2024 End: August 15, 2024 Dominick Harrell ASBESTOS COVERER, ASBESTOS COVERER-C Attending Provider Active S tart: August 15, 2024 End: August 15, 2024 Dominick Harrell ASBESTOS COVERER, ASBESTOS COVERER-C Referring Provider Active S tart: August 15, [...] 2024 End: August 28, 2024 Dominick Harrell ASBESTOS COVERER, ASBESTOS COVERER-C Other Provider Active Start : August 28, [...] Provider Active St art: October 07, 2024 Team Status: Inactive Member Role Status Dates Dr. Kierra Santiago MD Primary Care Provider Active Start: October 02, 2024 End: October 02, 2024 Dr. Eugene Blanca DPM Attending Provider Active Start: October 02, 2024 End: October 02, 2024 Dr. Eugene Blanca DPM Referring Provider Active Start: October 02, 2024 End: October 02, 2024 Team Status: Active Member [...] Active St art: October 07, 2024 Dr. Shaan Monae DO Attending Provider Active Start: October 07, 2024 Team Status: Active Member Role Status Dates Dr. Kierra Santiago MD Primary Care Provider Active Start: October 08, 2024 Dr. Matheus Fabian MD Emergency Provider Active Start: October 08, 2024 Dr. Roly Herrera MD Attending Provider Active Start: October 08, 2024 Dr. Roly Herrera MD Other Provider Active St art: October 08, 2024 Dr. Kelsie Muñoz MD Admit Provider Active St art: October 08, 2024 Dr. Kelsie Muñoz MD Other Provider Active St art: October 08, 2024 Dr. Shaan Monae DO Other Provider Active Star t: October 08, 2024 Team Status: Active Member Role Status Dates Dr. Jose Hollis MD Attending Provider Active Start: October 02, 2024 Dr. Eugene Blanca DPM Referring Provider Active Start: October 02, 2024 Team Status: Inactive Member Role Status Dates Dr. Kierra Santiago MD Primary Care Provider Active Start: October 07, 2024 End: October 10, 2024 Dr. Matheus Fabian MD Emergency Provider Active Start: October 07, 2024 End: October 10, 2024 Dr. Roly Herrera MD Other Provider Active St art: October 07, 2024 End: October 10, 2024 Dr. Kelsie Muñoz MD Admit Provider Active St art: October 07, 2024 End: October 10, 2024 Dr. Kelsie Muñoz MD Other Provider Active St art: October 07, 2024 End: October 10, 2024 Dr. Shaan Monae DO Attending Provider Active Start: October 07, 2024 End: October 10, 2024 Team Status: Active Member Role Status Dates Dr. Kierra Santiago MD Primary Care Provider Active Start: October 08, 2024 Dr. Matheus Fabian MD Emergency Provider Active Start: October 08, 2024 Dr. Roly Herrera MD Other Provider Active St art: October 08, 2024 Dr. Kelsie Muñoz MD Admit Provider Active St art: October 08, 2024 Dr. Kelsie Muñoz MD Other Provider Active St art: October 08, 2024 Dr. Shaan Monae DO Attending Provider Active Start: October 08, 2024 Dr. Shaan Monae DO Other Provider Active Star t: October 08, 2024 Team Status: Active Member Role Status Dates Dr. Kierra Santiago MD Primary Care Provider Active Start: October 09, 2024 Dr. Matheus Fabian MD Emergency Provider Active Start: October 09, 2024 Dr. Roly Herrera MD Other Provider Active St art: October 09, 2024 Dr. Kelsie Muñoz MD Admit Provider Active St art: October 09, 2024 Dr. Kelise Muñoz MD Other Provider Active St art: October 09, 2024 Dr. Shaan Monae DO Attending Provider Active Start: October 09, 2024 Dr. Shaan Monae DO Other Provider Active Star t: October 09, 2024 Team Status: Active Member Role Status Dates Dr. Kierra Santiago MD Primary Care Provider Active Start: October 09, 2024 Dr. Matheus Fabian MD Emergency Provider Active Start: October 09, 2024 Dr. Roly Herrera MD Attending Provider Active Start: October 09, 2024 Dr. Roly Herrera MD Other Provider Active St art: October 09, 2024 Dr. Kelsie Muñoz MD Admit Provider Active St art: October 09, [address]24 Dr. Kelsie Muñoz MD Other Provider Active St art: October 09, 2024 Dr. Shaan Monae DO Other Provider Active Star t: October 09, 2024 Team Status: Active Member Role Status Dates Dr. Kierra Santiago MD Primary Care Provider Active Start: October 09, 2024 Dr. Matheus Fabian MD Emergency Provider Active Start: October 09, 2024 Dr. Roly Herrera MD Other Provider Active St art: October 09, 2024 Dr. Kelsie Muñoz MD Admit Provider Active St art: October 09, 2024 Dr. Kelsie Muñoz MD Other Provider Active St art: October 09, 2024 Dr. Shaan Monae DO Other Provider Active Star t: October 09, 2024 Dr. Robb Giron DO Attending Provider Active Start: October 09, 2024 Team Status: Active Member Role Status Dates Dr. Kierra Santiago MD Primary Care Provider Active Start: October 10, 2024 Dr. Matheus Fabian MD Emergency Provider Active Start: October 10, 2024 Dr. Roly Herrera MD Other Provider Active St art: October 10, 2024 Dr. Kelsie Muñoz MD Admit Provider Active St art: October 10, 2024 Dr. Kelsie Muñoz MD Other Provider Active St art: October 10, 2024 Dr. Shaan Monae DO Attending Provider Active Start: October 10, 2024 Dr. 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 [address] Adz Worker Internal Medicine 09/19/24 Polyethylene Bag Machine Operator Relationship Specialty Start Date End Date Kierra Santiago MD [address] [place] [address] PCP - General Internal Medicine 07/01/22 Sheryl Reyes, NEWS INTERNSHIP.POPULATION HEALTH COACH [address] [place] [address] [facility] Internal Medicine 07/24/24 Anastasiia Colón, NEWS INTERNSHIP.BLUEPRINT MAKER [address] [place] [address] [facility] Internal Medicine 09/19/24 Team Status: Active Member Role/Relationship Status Dates Dr. Kierra Santiago MD Primary Care Provider Active Team Status: Inactive Member Role/Relationship Status Dates Dr. Kierra Santiago MD Primary Care Provider Active Start: July 10, 2024 End: July 10, 2024 Dominick Harrell ASBESTOS COVERER, ASBESTOS COVERER-C Attending Provider Active S tart: July 10, 2024 End: July 10, 2024 Dominick Harrell ASBESTOS COVERER, ASBESTOS COVERER-C Referring Provider Active S tart: July 10, 2024 End: July 10, 2024 Team Status: Inactive Member Role/Relationship Status Dates Dr. Kierra Santiago MD Primary Care Provider Active Start: July 25, 2024 End: July 25, 2024 Dominick Harrell ASBESTOS COVERER, ASBESTOS COVERER-C Attending Provider Active S tart: July 25, 2024 End: July 25, 2024 Dominick Harrell ASBESTOS COVERER, ASBESTOS COVERER-C Referring Provider Active S tart: July 25, 2024 End: July 25, 2024 Team Status: Inactive Member Role/Relationship Status Dates Dr. Kierra Santiago MD Primary Care Provider Active Start: August 15, 2024 End: August 15, 2024 Dominick Harrell ASBESTOS COVERER, ASBESTOS COVERER-C Attending Provider Active S tart: August 15, 2024 End: August 15, 2024 Dominick Harrell ASBESTOS COVERER, ASBESTOS COVERER-C Referring Provider Active S tart: August 15, 2024 End: August 15, 2024 Team Status: Inactive Member Role/Relationship Status Dates Dr. Kierra Santiago MD Primary Care Provider Active Start: August 22, 2024 End: August 22, 2024 Dr. Kierra Santiago MD Referring Provider Active Start: August 22, 2024 End: August 22, 2024 Dr. Robb Giron DO Attending Provider Active Start: August 22, 2024 End: August 22, 2024 Team Status: Active Member Role/Relationship Status Dates Dr. Kierra Santiago MD Primary Care Provider Active Start: August 22, 2024 Dr. Kierra Santiago MD Referring Provider Active Start: August 22, 2024 Dr. Robb Giron DO Attending Provider Active Start: August 22, 2024 Dr. Robb Giron DO Other Provider Active St art: August 22, 2024 Team Status: Inactive Member Role/Relationship Status Dates Dr. Kierra Santiago MD Primary Care Provider Active Start: August 28, 2024 End: August 28, 2024 COLTON Wetzel Attending Provider Active Star t: August 28, 2024 End: August 28, 2024 COLTON Wetzel Referring Provider Active Star t: August 28, 2024 End: August 28, 2024 Dominick Harrell ASBESTOS COVERER, ASBESTOS COVERER-C Other Provider Active Start : August 28, 2024 End: August 28, 2024 Team Status: Active Member Role/Relationship Status Dates Dr. Kierra Santiago MD Primary Care Provider Active Start: August 28, 2024 Dr. Shaan Rojas MD Attending Provider Active S tart: August 28, 2024 COLTON Wetzel Referring Provider Active Star t: August 28, 2024 Team Status: Inactive Member Role/Relationship Status Dates Dr. Kierra Santiago MD Primary Care Provider Active Start: September 06, 2024 End: September 29, 2024 Self Referred Attending Provider Active Start: 2024 End: September 29, 2024 Team Status: Inactive Member Role/Relationship Status Dates Dr. Kierra Santiago MD Primary Care Provider Active Start: October 01, 2024 End: October 01, 2024 COLTON Wetzel Attending Provider Active Star t: October 01, 2024 End: October 01, 2024 COLTON Wetzel Referring Provider Active Star t: October 01, 2024 End: October 01, 2024 Team Status: Inactive Member Role/Relationship Status Dates Dr. Kierra Santiago MD Primary Care Provider Active Start: October 02, 2024 End: October 02, 2024 Dr. Eugene Blanca DPM Attending Provider Active Start: October 02, 2024 End: October 02, 2024 Dr. Eugene Blanca DPM Referring Provider Active Start: October 02, 2024 End: October 02, 2024 Team Status: Active Member Role/Relationship Status Dates Dr. Jose Hollis MD Attending Provider Active Start: October 02, 2024 Dr. Eugene Blanca DPM Referring Provider Active Start: October 02, 2024 Team Status: Inactive Member Role/Relationship Status Dates Dr. Kierra Santiago MD Primary Care Provider Active Start: October 07, 2024 End: October 10, 2024 Dr. Matheus Fabian MD Emergency Provider Active Start: October 07, 2024 End: October 10, 2024 Dr. Roly Herrera MD Other Provider Active St art: October 07, 2024 End: October 10, 2024 Dr. Kelsie Muñoz MD Admit Provider Active St art: October 07, 2024 End: October 10, 2024 Dr. Kelsie Muñoz MD Other Provider Active St art: October 07, 2024 End: October 10, 2024 Dr. Shaan Monae DO Attending Provider Active Start: October 07, 2024 End: October 10, 2024 Team Status: Active Member Role/Relationship Status Dates Dr. Kierra Santiago MD Primary [...] Provider Active St art: October 07, 2024 Team Status: Active Member Role/Relationship Status Dates Dr. Kierra Santiago MD Primary Care Provider Active Start: October 08, 2024 Dr. Matheus Fabian MD Emergency Provider Active Start: October 08, 2024 Dr. Roly Herrera MD Attending Provider Active Start: October 08, 2024 Dr. Roly Herrera MD Other Provider Active St art: October 08, 2024 Dr. Kelsie Muñoz MD Admit Provider Active St art: October 08, 2024 Dr. Kelsie Muñoz MD Other Provider Active St art: October 08, 2024 Dr. Shaan Monae DO Other Provider Active Star t: October 08, 2024 Team Status: Active Member Role/Relationship Status Dates Dr. Kierra Santiago MD Primary Care Provider Active Start: October 08, 2024 Dr. Matheus Fabian MD Emergency Provider Active Start: October 08, 2024 Dr. Roly Herrera MD Other Provider Active St art: October 08, 2024 Dr. Kelsie Muñoz MD Admit Provider Active St art: October 08, 2024 Dr. Kelsie Muñoz MD Other Provider Active St art: October 08, 2024 Dr. Shaan Monae DO Attending Provider Active Start: October 08, 2024 Dr. Shaan Monae DO Other Provider Active Star t: October 08, 2024 Team Status: Active Member Role/Relationship Status Dates Dr. Kierra Santiago MD Primary Care Provider Active Start: October 08, 2024 Dr. Matheus Fabian MD Emergency Provider Active Start: October 08, 2024 Dr. Roly Herrera MD Other Provider Active St art: October 08, 2024 Dr. Kelsie Muñoz MD Admit Provider Active St art: October 08, 2024 Dr. Kelsie Muñoz MD Other Provider Active St art: October 08, 2024 Dr. Shaan Monae DO Referring Provider Active Start: October 08, 2024 Dr. Shaan Monae DO Other Provider Active Star t: October 08, 2024 Dr. Robb Giron DO Attending Provider Active Start: October 08, 2024 Team Status: Active Member Role/Relationship Status Dates Dr. Kierra Santiago MD Primary Care Provider Active Start: October 09, 2024 Dr. Matheus Fabian MD Emergency Provider Active Start: October 09, 2024 Dr. Roly Herrera MD Other Provider Active St art: October 09, 2024 Dr. Kelsie Muñoz MD Admit Provider Active St art: October 09, 2024 Dr. Kelsie Muñoz MD Other Provider Active St art: October 09, 2024 Dr. Shaan Monae DO Attending Provider Active Start: October 09, 2024 Dr. Shaan Monae DO Other Provider Active Star t: October 09, 2024 Team Status: Active Member Role/Relationship Status Dates Dr. Kierra Santiago MD Primary Care Provider Active Start: October 09, 2024 Dr. Matheus Fabian MD Emergency Provider Active Start: October 09, 2024 Dr. Roly Herrera MD Attending Provider Active Start: October 09, 2024 Dr. Roly Herrera MD Other Provider Active St art: October 09, 2024 Dr. Kelsie Muñoz MD Admit Provider Active St art: October 09, [address]24 Dr. Kelsie Muñoz MD Other Provider Active St art: October 09, 2024 Dr. Shaan Monae DO Other Provider Active Star t: October 09, 2024 Team Status: Active Member Role/Relationship Status Dates Dr. Kierra Santiago MD Primary Care Provider Active Start: October 09, 2024 Dr. Matheus Fabian MD Emergency Provider Active Start: October 09, 2024 Dr. Roly Herrera MD Other Provider Active St art: October 09, 2024 Dr. Kelsie Muñoz MD Admit Provider Active St art: October 09, 2024 Dr. Kelsie Muñoz MD Other Provider Active St art: October 09, 2024 Dr. Shaan Monae DO Referring Provider Active Start: October 09, 2024 Dr. Shaan Monae DO Other Provider Active Star t: October 09, 2024 Dr. Robb Giron DO Attending Provider Active Start: October 09, 2024 Team Status: Active Member Role/Relationship Status Dates Dr. Kierra Santiago MD Primary Care Provider Active Start: October 10, 2024 Dr. Matheus Fabian MD Emergency Provider Active Start: October 10, 2024 Dr. Roly Herrera MD Other Provider Active St art: October 10, 2024 Dr. Kelsie Muñoz MD Admit Provider Active St art: October 10, 2024 Dr. Kelsie Muñoz MD Other Provider Active St art: October 10, 2024 Dr. Shaan Monae DO Attending Provider Active Start: October 10, 2024 Dr. Shaan Monae DO Other Provider Active Star t: October 10, 2024 Team Status: Inactive Member Role/Relationship Status Dates Dr. Kierra Santiago MD Primary Care Provider Active Start: October 31, 2024 End: October 31, 2024 Dr. Kierra Santiago MD Referring Provider Active Start: October 31, 2024 End: October 31, 2024 Dr. 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 [address] PCP - General Internal Medicine 07/01/22 Sheryl Reyes NEWS INTERNSHIP.POPULATION HEALTH COACH [address] [place] [address] Adz Worker Internal Medicine 07/24/24 Anastasiia Colón, NEWS INTERNSHIP.BLUEPRINT MAKER [address] 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 [address] PCP - General Internal Medicine 07/01/22 Sheryl Reyes NEWS INTERNSHIP.POPULATION HEALTH COACH [address] [place] [address] [facility] Internal Medicine 07/24/24 Anastasiia Colón APRN.BLUEPRINT MAKER [address] [place] [address] [facility] Internal Medicine 09/19/24 Team Status: Inactive Member Role/Relationship Status Dates Dr. Kierra Santiago MD Primary Care Provider Active Start: August 15, 2024 End: August 15, 2024 Dominick Harrell ASBESTOS COVERER, ASBESTOS COVERER-C Attending Provider Active S tart: August 15, 2024 End: August 15, 2024 Dominick Harrell ASBESTOS COVERER, ASBESTOS COVERER-C Referring Provider Active S tart: August 15, 2024 End: August 15, 2024 Team Status: Inactive Member Role/Relationship Status Dates Dr. Kierra Santiago MD Primary Care Provider Active Start: August 22, 2024 End: August 22, 2024 Dr. Kierra Santiago MD Referring Provider Active Start: August 22, 2024 End: August 22, 2024 Dr. Robb Giron DO Attending Provider Active Start: August 22, 2024 End: August 22, 2024 Team Status: Active Member Role/Relationship Status Dates Dr. Kierra Santiago MD Primary Care Provider Active Start: August 22, 2024 Dr. Kierra Santiago MD Referring Provider Active Start: August 22, 2024 Dr. Robb Giron DO Attending Provider Active Start: August 22, 2024 Dr. Robb Giron DO Other Provider Active St art: August 22, 2024 Team Status: Inactive Member Role/Relationship Status Dates Dr. Kierra Santiago MD Primary Care Provider Active Start: August 28, 2024 End: August 28, 2024 COLTON Wetzel Attending Provider Active Star t: August 28, 2024 End: August 28, 2024 COLTON Wetzel Referring Provider Active Star t: August 28, 2024 End: August 28, 2024 Dominick Harrell ASBESTOS COVERER, ASBESTOS COVERER-C Other Provider Active Start : August 28, 2024 End: August 28, 2024 Team Status: Active Member Role/Relationship Status Dates Dr. Kierra Santiago MD Primary Care Provider Active Start: August 28, 2024 Dr. Shaan Rojas MD Attending Provider Active S tart: August 28, 2024 COLTON Wetzel Referring Provider Active Star t: August 28, 2024 Team Status: Inactive Member Role/Relationship Status Dates Dr. Kierra Santiago MD Primary Care Provider Active Start: September 06, 2024 End: September 29, 2024 Self Referred Attending Provider Active Start: 2024 End: September 29, 2024 Team Status: Inactive Member Role/Relationship Status Dates Dr. Kierra Santiago MD Primary Care Provider Active Start: October 01, 2024 End: October 01, 2024 COLTON Wetzel Attending Provider Active Star t: October 01, 2024 End: October 01, 2024 COLTON Wetzel Referring Provider Active Star t: October 01, 2024 End: October 01, 2024 Team Status: Inactive Member Role/Relationship Status Dates Dr. Kierra Santiago MD Primary Care Provider Active Start: October 02, 2024 End: October 02, 2024 Dr. Eugene Blanca DPM Attending Provider Active Start: October 02, 2024 End: October 02, 2024 Dr. Eugene Blanca DPM Referring Provider Active Start: October 02, 2024 End: October 02, 2024 Team Status: Active Member Role/Relationship Status Dates Dr. Jose Hollis MD Attending Provider Active Start: October 02, 2024 Dr. Eugene Blanca DPM Referring Provider Active Start: October 02, 2024 Team Status: Inactive Member Role/Relationship Status Dates Dr. Kierra Santiago MD Primary Care Provider Active Start: October 07, 2024 End: October 10, 2024 Dr. Matheus Fabian MD Emergency Provider Active Start: October 07, 2024 End: October 10, 2024 Dr. Roly Herrera MD Other Provider Active St art: October 07, 2024 End: October 10, 2024 Dr. Kelsie Muñoz MD Admit Provider Active St art: October 07, 2024 End: October 10, 2024 Dr. Kelsie Muñoz MD Other Provider Active St art: October 07, 2024 End: October 10, 2024 Dr. Shaan Monae DO Attending Provider Active Start: October 07, 2024 End: October 10, 2024 Team Status: Active Member Role/Relationship Status Dates Dr. Kierra Santiago MD Primary [...] Provider Active St art: October 07, 2024 Team Status: Active Member Role/Relationship Status Dates Dr. Kierra Santiago MD Primary Care Provider Active Start: October 08, 2024 Dr. Matheus Fabian MD Emergency Provider Active Start: October 08, 2024 Dr. Roly Herrera MD Attending Provider Active Start: October 08, 2024 Dr. Roly Herrera MD Other Provider Active St art: October 08, 2024 Dr. Kelsie Muñoz MD Admit Provider Active St art: October 08, 2024 Dr. Kelsie Muñoz MD Other Provider Active St art: October 08, 2024 Dr. Shaan Monae DO Other Provider Active Star t: October 08, 2024 Team Status: Active Member Role/Relationship Status Dates Dr. Kierra Santiago MD Primary Care Provider Active Start: October 08, 2024 Dr. Matheus Fabian MD Emergency Provider Active Start: October 08, 2024 Dr. Roly Herrera MD Other Provider Active St art: October 08, 2024 Dr. Kelsie Muñoz MD Admit Provider Active St art: October 08, 2024 Dr. Kelsie Muñoz MD Other Provider Active St art: October 08, 2024 Dr. Shaan Monae DO Attending Provider Active Start: October 08, 2024 Dr. Shaan Moane DO Other Provider Active Star t: October 08, 2024 Team Status: Active Member Role/Relationship Status Dates Dr. Kierra Santiago MD Primary Care Provider Active Start: October 08, 2024 Dr. Matheus Fabian MD Emergency Provider Active Start: October 08, 2024 Dr. Roly Herrera MD Other Provider Active St art: October 08, 2024 Dr. Kelsie Muñoz MD Admit Provider Active St art: October 08, 2024 Dr. Kelsie Muñoz MD Other Provider Active St art: October 08, 2024 Dr. Shaan Monae DO Referring Provider Active Start: October 08, 2024 Dr. Shaan Monae DO Other Provider Active Star t: October 08, 2024 Dr. Robb Giron DO Attending Provider Active Start: October 08, 2024 Team Status: Active Member Role/Relationship Status Dates Dr. Kierra Santiago MD Primary Care Provider Active Start: October 09, 2024 Dr. Matheus Fabian MD Emergency Provider Active Start: October 09, 2024 Dr. Roly Herrera MD Other Provider Active St art: October 09, 2024 Dr. Kelsie Muñoz MD Admit Provider Active St art: October 09, 2024 Dr. Kelsie Muñoz MD Other Provider Active St art: October 09, 2024 Dr. Shaan Monae DO Attending Provider Active Start: October 09, 2024 Dr. Shaan Monae DO Other Provider Active Star t: October 09, 2024 Team Status: Active Member Role/Relationship Status Dates Dr. Kierra Santiago MD Primary Care Provider Active Start: October 09, 2024 Dr. Matheus Fabian MD Emergency Provider Active Start: October 09, 2024 Dr. Roly Herrera MD Attending Provider Active Start: October 09, 2024 Dr. Roly Herrera MD Other Provider Active St art: October 09, 2024 Dr. Kelsie Muñoz MD Admit Provider Active St art: October 09, [address]24 Dr. Kelsie Muñoz MD Other Provider Active St art: October 09, 2024 Dr. Shaan Monae DO Other Provider Active Star t: October 09, 2024 Team Status: Active Member Role/Relationship Status Dates Dr. Kierra Santiago MD Primary Care Provider Active Start: October 09, 2024 Dr. Matheus Fabian MD Emergency Provider Active Start: October 09, 2024 Dr. Roly Herrera MD Other Provider Active St art: October 09, 2024 Dr. Kelsie Muñoz MD Admit Provider Active St art: October 09, 2024 Dr. Kelsie Muñoz MD Other Provider Active St art: October 09, 2024 Dr. Shaan Monae DO Referring Provider Active Start: October 09, 2024 Dr. Shaan Monae DO Other Provider Active Star t: October 09, 2024 Dr. Robb Giron DO Attending Provider Active Start: October 09, 2024 Team Status: Active Member Role/Relationship Status Dates Dr. Kierra Santiago MD Primary Care Provider Active Start: October 10, 2024 Dr. Matheus Fabian MD Emergency Provider Active Start: October 10, 2024 Dr. Roly Herrera MD Other Provider Active St art: October 10, 2024 Dr. Kelsie Muñoz MD Admit Provider Active St art: October 10, 2024 Dr. Kelsie Muñoz MD Other Provider Active St art: October 10, 2024 Dr. Shaan Monae DO Attending Provider Active Start: October 10, 2024 Dr. Shaan Monae DO Other Provider Active Star t: October 10, 2024 Team Status: Inactive Member Role/Relationship Status Dates Dr. Kierra Santiago MD Primary Care Provider Active Start: October 31, 2024 End: October 31, 2024 Dr. Kierra Santiago MD Referring Provider Active Start: October 31, 2024 End: October 31, 2024 Dr. Shaan Rojas MD Attending Provider Active S tart: October 31, 2024 End: October 31, 2024 Team Status: Inactive Member Role/Relationship Status Dates Dr. Kierra Santiago MD Primary Care Provider Active Start: December 13, 2024 End: December 13, 2024 Dr. Kierra Santiago MD Referring Provider Active Start: December 13, 2024 End: December 13, 2024 Dominick Harrell ASBESTOS COVERER, ASBESTOS COVERER-C Attending Provider Active S tart: December 13, 2024 End: December 13, 2024 Goals (unrecognized section and content) Goals may be documented in a n alternate section INFORMATION SOURCE (unrecogn ized section and content) DATE CREATED AUTHOR 01/17/2025 [facility] DATE CREATED AUTHOR 'S TERRELLIZ ATION 01/22/2025 [facility] FOR RECORDS PERTAINING TO PATIENTS WHO ARE [...] BE BASED ON THE PRIMARY CLINICAL RECORDS. [employer] [facility]. provides no warranty or guarantee of the accuracy or completeness of information in this document.
[2025-01-22] MEDS: Lactated Ringers 1,000 ML 15 ML IV (06:24)
--- NOTE | 2025-01-22 06:45 | PCM.PRE.AN2 ---
ASA Classification* ASA Classification ASA Classification: 3 Assessment & Plan Anesthesia* Anesthesia Assessment Anesthesia Assessment: Discussed sedation and/or anesthesia options, risks, benefits, and alternatives with patient/parents/legal guardian/POA. Questions invited. The patient/parents/legal guardian/POA seems to understand and agrees to proceed with anesthesia plan. Reviewed the physical assessment, medical history, allergy history and patient home medications list prior to surgery/procedure/anesthetic and documented any changes. Performed airway and anesthesia risk assessments. Anesthesia Type Anesthesia Type: General (Patient has mild aortic stenosis. Avoid increased heart rate and decrease blood pressure. Phenylephrine is drug of choice.) History Source History Obtained from:: Patient and Chart Anesthesia Focused Assessment* Temperature: 97.9 F Pulse Rate: 56 Blood Pressure: 158/64 Respiratory Rate: 18 Pulse Ox: 98 Oxygen Delivery Method: Room Air Airway Assessment Mouth opens: >3 cm Mallampati Score: II Teeth Condition: Caps/Crowns (Top front incisors are capped. They are tight.) and Missing (Missing a left upper molar.) Neck Range of motion (ROM): Limited ROM (Severe Restriction) Labs Anesthesia Preop lab: CBC WBC, (4.4-11.0) 4.2 K/mm3 L 01/16/25, 10:02 RBC, (4.2-5.4) 3.52 M/mm3 L 01/16/25, 10:02 Hgb, (12.0-15.0) 11.2 g/dL L 01/16/25, 10:02 Hct, (37-47) 33.2 % L 01/16/25, 10:02 Plt Count, (150-450) 188 K/mm3 01/16/25, 10:02 CHEMISTRY Potassium, (3.3-5.1) 4.0 mmol/L 01/16/25, 10:02 Sodium, (133-145) 135 mmol/L 01/16/25, 10:02 Magnesium, (1.5-2.2) 2.0 mg/dL 10/07/24, 22:22 Phosphorus, (2.5-4.9) 4.1 mg/dL 03/08/24, 05:15 BUN, (4-19) 29 mg/dL H 01/16/25, 10:02 Creatinine, (0.70-1.20) 1.21 mg/dL H 01/16/25, 10:02 Glucose, (70-99) 337 mg/dL H 01/16/25, 10:02 POC Glucose, (74-106) 170 mg/dL H Today, 05:58 TSH, (0.358-3.740) 5.590 uIU/mL H 03/08/24, 05:15 COAG PT, (11.7-14.9) 22.2 SECONDS H 10/09/24, 05:15 Pre-Assessment Diagnosis/Proposed Procedure Planned Operative Procedure(s): (L) Carotid stent, Spout Liner Helper, OR Staff, ELEMENTARY SCHOOL DIRECTOR, Anes. Anesthesia History Anesthesia History - binding stitcher: Anesthesia History - binding stitcher Hx Hospitalization Yes: GI BLEED 10-2401/07/25 09:22 Any Problems With Anesthesia No 01/07/25 09:22 Cholinesterase deficiency No 01/07/25 09:22 You/Your Family Experience No 01/07/25 09:22 fever (hyperthermia) with Relationship Recent Exposure to Contagious No 01/22/25 06:07 Disease Does patient have nerve No 01/07/25 09:22 stimulator Patient instructed to have device shut off --Does patient have Pacemaker No 01/22/25 06:07 or ICD? When Was Last Pacemaker Check QUESTION #4 FULL TEXT: You/Your Family Experience fever (hyperthermia) with Anesthesia Last Oral Intake Last Oral intake: Last Oral Intake NPO since 22:00 01/22/25 06:07 Meds taken in AM with sips of Yes 01/22/25 06:07 water? Meds patient instructed to metoprolol, pantoprazole 01/22/25 06:07 take am of surgery Any additional information?: Yes Meds taken in AM with sips of water?: Yes PONV PONV - binding stitcher: PONV - binding stitcher Female Yes 01/07/25 09:22 HX of Motion Sickness No 01/07/25 09:22 HX of N/V After Surgery No 01/07/25 09:22 Non-Smoker Yes 01/07/25 09:22 Duration of Surgery greater Yes 01/07/25 09:22 than 60 minutes Number of Risk Factors 3 01/07/25 09:22 PONV Score Moderate Risk 01/07/25 09:22 Height & Weight Height & Weight: Anesthesia: Height & Weight Height 5 ft 3 in 01/22/25 06:07 Weight: 69 kg 01/22/25 06:07 Body Mass Index (BMI) 26.9 01/22/25 06:07 Respiratory Assessment Respiratory Assessment - binding stitcher: Respiratory Tract Infection Hx - binding stitcher Hx Respiratory Tract Infection No 01/07/25 09:22 STOP Sleep Apnea STOP Sleep Apnea - binding stitcher: STOP Sleep Apnea - binding stitcher Hx Hypertension Yes 01/07/25 09:22 Hx Sleep Apnea Yes: USES O2 NC 3L AT HS 01/07/25 09:22 CPAP No 01/07/25 09:22 BIPAP No 01/07/25 09:22 Do you snore loudly (louder than talking or can be heard Do you often feel tired/ fatigued/ sleepy during daytime? Has anyone observed you stop breathing during sleep? STOP Results Positive 01/07/25 09:22 QUESTION #5 FULL TEXT : Do you snore loudly (louder than talking or can be heard through closed doors)? Tobacco Use History Tobacco Use History - binding stitcher: Tobacco Use History - binding stitcher Tobacco Use Smoking Status Never smoker 01/07/25 09:22 Hx Tobacco Use No 01/07/25 09:22 Years Smoking Packs Smoked per Day Smoking Cessation Date was within the last 15 years Hx Smoking Cessation Date Hx Smoking Cessation Counseling Hematologic Medial History Hematologic Hx - binding stitcher: Hematologic Medical Hx - manager sports Hx of Blood Transfusion Yes 01/07/25 09:22 Hx of Transfusion in last 3 Yes 01/07/25 09:22 Months Date of Last Transfusion (if -01/07/25 09:22 within last 3 months) Ever experience any problems No 01/07/25 09:22 with transfusion(s)? Specify any problems Hx of Preganancy in last 3 No 01/07/25 09:22 Months Nurse Filling Out Transfusion VENESSA 01/07/25 09:22 & Questions: Date: 01/07/25 01/07/25 09:22 Time: 09:24 01/07/25 09:22 Patient unable to answer at this time (ie. confused, unrespo /Reproduction History /Reproductive History - binding stitcher: /Reproductive Hx- binding stitcher Hx Now No 01/07/25 09:22 Gestational Age (in weeks): EDC: Hx Hx Para Hx Section SAB No 01/07/25 09:22 Active Medications Active Medications: Current Medications Generic Name Dose Route Start Last Admin Trade Name Kp PRN Reason Stop Dose Admin Cefazolin Sodium 2 gm/ Sodium 110 mls @ 200 mls/hr 01/22/25 07:00 Chloride IV 01/22/25 07:32 INTRAOP ONE Lactated Ringer's 1,000 mls @ 15 mls/hr 01/22/25 05:45 01/22/25 06:24 IV 15 mls/hr .Q48H KAVYA Administration PFSH Medical History Wears hearing aid in both ears Diabetes Sleep apnea Hx of cardiovascular stress test Hx of echocardiogram Cardiology follow-up encounter Preop cardiovascular exam (HFpEF) heart failure with preserved ejection fraction Pleural effusion, left TIA (transient ischemic attack) Wears glasses Depression Heartburn Non-smoker On home oxygen therapy Hypertension Gastric ulcer Aortic valve stenosis Atrial fibrillation Dilated cardiomyopathy Prolonged QT interval Elevated blood pressure reading without diagnosis of hypertension Factor V Leiden Anxiety Hypokalemia Acute hypoxemic respiratory failure CHF (congestive heart failure) Home Medications ?Medication ?Instructions ?Recorded ?Last Taken ?Type oxybutynin chloride 10 mg 10 mg PO DAILY bladder 09/23/23 01/21/25 History tablet,extended release 24 hr glimepiride 2 mg tablet 2 mg PO DAILY dm 12/31/23 01/21/25 History ferrous sulfate 325 mg (65 mg 325 mg PO DAILY@1200 supplement 30 02/03/24 01/20/25 Rx iron) tablet (FeroSul) days #30 tabs furosemide 40 mg tablet 40 mg PO DAILY water pill 30 days 03/19/24 01/21/25 Rx #60 tabs clopidogrel 75 mg tablet 75 mg PO DAILY a fib 30 days #30 04/05/24 01/21/25 Rx tabs pantoprazole 40 mg tablet,delayed 40 mg PO BID reflux 30 days #60 04/05/24 01/22/25 Rx release tabs simvastatin 80 mg tablet 80 mg PO QHS cholesterol 06/20/24 01/21/25 History magnesium chloride 64 mg 128 mg PO DAILY leg cramps 08/17/24 01/21/25 History (magnesium chloride) tablet,delayed release (Mag 64) potassium chloride 20 mEq 20 meq PO BID supplement 08/20/24 01/21/25 History tablet,extended release amlodipine 10 mg tablet 10 mg PO .COMPLEX bp #90 tabs 09/04/24 01/21/25 Rx acetaminophen 500 mg capsule 500 mg PO QHS PRN pain 10/07/24 01/21/25 History fluticasone propionate 50 2 spray intranasal Q12H PRN 10/07/24 01/21/25 History mcg/actuation nasal congestion spray,suspension gabapentin 100 mg capsule 100 mg PO TID pain 10/07/24 01/21/25 History metoprolol succinate 25 mg 25 mg PO BID bp #60 tabs 10/10/24 01/22/25 Rx tablet,extended release 24 hr tizanidine 4 mg tablet 2 mg PO Q8 PRN muscle spasticity 12/13/24 01/21/25 History warfarin 2 mg tablet 2 mg PO .COMPLEX afib 12/13/24 01/19/25 History cinnamon bark 500 mg capsule 500 mg PO DAILY supplement 01/07/25 01/21/25 History (Cinnamon) coenzyme Q10 100 mg capsule (Co 100 mg PO DAILY supplement 01/07/25 01/21/25 History Q-10) cranberry 500 mg capsule 500 mg PO DAILY supplement 01/07/25 01/21/25 History diphenhydramine HCl 25 mg capsule 25 mg PO .qd allergies 01/07/25 01/21/25 History (Aler-Cap) lactobacillus combination no.4 3 3,000 mmu cells PO DAILY supplement 01/07/25 01/21/25 History billion cell capsule (Probiotic) losartan 100 1 tab PO .qd bp 01/07/25 01/21/25 History mg-hydrochlorothiazide 12.5 mg tablet Allergy/AdvReac Type Severity Reaction Status Date / Time benazepril (From Lotensin) Allergy Mild DOESNT Verified 01/22/25 06:01 REMEMBER quinapril (From Accupril) Allergy Mild UNKNOWN Verified 01/22/25 06:01 Sulfa (Sulfonamide Allergy Mild Hives Verified 01/22/25 06:01 Antibiotics) verapamil (From Calan) Allergy Mild UNKNOWN Verified 01/22/25 06:01 Family History Mother Diabetes Father Diabetes CVA (cerebral vascular accident) Heart disease Hypertension Myocardial infarction CAD (coronary artery disease) Brother Myocardial infarction Hypertension Heart disease CAD (coronary artery disease) Sister NAFLD (nonalcoholic fatty liver disease) Other Asthma COPD (chronic obstructive pulmonary disease) Surgical History History of esophagogastroduodenoscopy (EGD) (10/08/24) Hx of amputation History of transmetatarsal amputation of right foot History of femoropopliteal bypass S/P carotid endarterectomy Social History household members: spouse Smoking Status: Never smoker alcohol intake: never substance use type: does not use Review of Systems (Anesthesia) ROS Narrative System reviewed and no additional complaints, except as documented.
[2025-01-22 06:48] LABS: Prothrombin Time (Protime)PT. 14.6 SECONDS (11.7-14.9)
--- NOTE | 2025-01-22 07:26 | PCM.HP.STD ---
HPI - General General Date of Admission: 01/22/25 HPI Narrative JAROD PRITCHARD, is a 84 F who presents with left carotid stenosis, asymptomatic. Her anatomy is compatible with carotid stenting. [facility] Medical History Wears hearing aid in both ears Diabetes Sleep apnea Hx of cardiovascular stress test Hx of echocardiogram Cardiology follow-up encounter Preop cardiovascular exam (HFpEF) heart failure with preserved ejection fraction Pleural effusion, left TIA (transient ischemic attack) Wears glasses Depression Heartburn Non-smoker On home oxygen therapy Hypertension Gastric ulcer Aortic valve stenosis Atrial fibrillation Dilated cardiomyopathy Prolonged QT interval Elevated blood pressure reading without diagnosis of hypertension Factor V Leiden Anxiety Hypokalemia Acute hypoxemic respiratory failure CHF (congestive heart failure) Home Medications ?Medication ?Instructions ?Recorded ?Last Taken ?Type oxybutynin chloride 10 mg 10 mg PO DAILY bladder 09/23/23 01/21/25 History tablet,extended release 24 hr glimepiride 2 mg tablet 2 mg PO DAILY dm 12/31/23 01/21/25 History ferrous sulfate 325 mg (65 mg 325 mg PO DAILY@1200 supplement 30 02/03/24 01/20/25 Rx iron) tablet (FeroSul) days #30 tabs furosemide 40 mg tablet 40 mg PO DAILY water pill 30 days 03/19/24 01/21/25 Rx #60 tabs clopidogrel 75 mg tablet 75 mg PO DAILY a fib 30 days #30 04/05/24 01/21/25 Rx tabs pantoprazole 40 mg tablet,delayed 40 mg PO BID reflux 30 days #60 04/05/24 01/22/25 Rx release tabs simvastatin 80 mg tablet 80 mg PO QHS cholesterol 06/20/24 01/21/25 History magnesium chloride 64 mg 128 mg PO DAILY leg cramps 08/17/24 01/21/25 History (magnesium chloride) tablet,delayed release (Mag 64) potassium chloride 20 mEq 20 meq PO BID supplement 08/20/24 01/21/25 History tablet,extended release amlodipine 10 mg tablet 10 mg PO .COMPLEX bp #90 tabs 09/04/24 01/21/25 Rx acetaminophen 500 mg capsule 500 mg PO QHS PRN pain 10/07/24 01/21/25 History fluticasone propionate 50 2 spray intranasal Q12H PRN 10/07/24 01/21/25 History mcg/actuation nasal congestion spray,suspension gabapentin 100 mg capsule 100 mg PO TID pain 10/07/24 01/21/25 History metoprolol succinate 25 mg 25 mg PO BID bp #60 tabs 10/10/24 01/22/25 Rx tablet,extended release 24 hr tizanidine 4 mg tablet 2 mg PO Q8 PRN muscle spasticity 12/13/24 01/21/25 History warfarin 2 mg tablet 2 mg PO .COMPLEX afib 12/13/24 01/19/25 History cinnamon bark 500 mg capsule 500 mg PO DAILY supplement 01/07/25 01/21/25 History (Cinnamon) coenzyme Q10 100 mg capsule (Co 100 mg PO DAILY supplement 01/07/25 01/21/25 History Q-10) cranberry 500 mg capsule 500 mg PO DAILY supplement 01/07/25 01/21/25 History diphenhydramine HCl 25 mg capsule 25 mg PO .qd allergies 01/07/25 01/21/25 History (Aler-Cap) lactobacillus combination no.4 3 3,000 mmu cells PO DAILY supplement 01/07/25 01/21/25 History billion cell capsule (Probiotic) losartan 100 1 tab PO .qd bp 01/07/25 01/21/25 History mg-hydrochlorothiazide 12.5 mg tablet aspirin 325 mg capsule 325 mg PO DAILY for stent 01/22/25 01/22/25 History Allergy/AdvReac Type Severity Reaction Status Date / Time benazepril (From Lotensin) Allergy Mild DOESNT Verified 01/22/25 06:01 REMEMBER quinapril (From Accupril) Allergy Mild UNKNOWN Verified 01/22/25 06:01 Sulfa (Sulfonamide Allergy Mild Hives Verified 01/22/25 06:01 Antibiotics) verapamil (From Calan) Allergy Mild UNKNOWN Verified 01/22/25 06:01 Family History Mother Diabetes Father Diabetes CVA (cerebral vascular accident) Heart disease Hypertension Myocardial infarction CAD (coronary artery disease) Brother Myocardial infarction Hypertension Heart disease CAD (coronary artery disease) Sister NAFLD (nonalcoholic fatty liver disease) Other Asthma COPD (chronic obstructive pulmonary disease) Surgical History History of esophagogastroduodenoscopy (EGD) (10/08/24) Hx of amputation History of transmetatarsal amputation of right foot History of femoropopliteal bypass S/P carotid endarterectomy Social History household members: spouse Smoking Status: Never smoker alcohol intake: never substance use type: does not use ROS Constitutional Constitutional: Denies chills, fever(s), frequent falls, lethargy or weakness Eyes Eyes: Denies blind spots, change in vision or loss of vision ENT HEENT: Denies bleeding gums, hoarseness or sore throat Cardiovascular Cardiovascular: Denies abdominal pain, bluish discoloration of hand/feet, chest pain with activity, claudication, cold extremities, cyanosis, dyspnea on exertion, erythema on extremities, irregular heart rhythm, leg edema, leg ulcers, numbness in extremities or weakness in extremities Respiratory/Chest Respiratory/Chest: Denies cough, excessive phlegm production, shortness of breath at rest, shortness of breath with exertion or wheezing Gastrointestinal Gastrointestinal: Denies anorexia, change in stool character, constipation, diarrhea, melena or rectal bleeding Genitourinary Genitourinary: Denies dysuria or hematuria Musculoskeletal Musculoskeletal: Denies abnormal gait Integumentary Integumentary: Reports other Details: ; Denies erythema, non-healing lesions or wounds Neurologic Neurologic: Denies abnormal speech, focal weakness, headache(s), loss of vision, numbness, paresthesias or sensory deficit Hematologic/Lymphatic Hematologic/Lymphatic: Denies easy bleeding, easy bruising or lymphadenopathy Vital Signs Vital Signs Vital Signs: 01/22/25 06:07 01/22/25 06:07 01/22/25 06:57 Temperature 97.9 F 97.9 F Temperature Source Temporal Pulse Rate 56 L 56 L Respiratory Rate 18 18 Respiratory Pattern Normal Blood Pressure 158/64 H 158/64 H Blood Pressure Mean 95 Blood Pressure Source Monitor Blood Pressure Position Semi-Fowlers Blood Pressure Location Left Arm Pulse Ox 98 98 Oxygen Delivery Method Room Air Room Air Weight Weight: 152 lb 1.903 oz Body Mass Index (BMI) 26.9 Physical Exam Const alert, oriented x3, no apparent distress and healthy appearing General Appearance: cooperative; Negative for combative or lethargic Orientation / Consciousness: awake Exam Limitations: no limitations HEENT Head and Scalp: normocephalic and atraumatic Eyes EOMs intact bilaterally General Eye: normal appearance of both eyes Neck full ROM General: trachea midline Resp normal respiratory effort and no use of accessory muscles Effort and Inspection: Negative for labored, stridor or audible wheezes Cardio regular rate and regular rhythm Back/Spine Cervical Spine: cervical ROM normal Extremity full ROM, normal capillary refill and no clubbing, cyanosis or edema Skin no rashes or lesions noted and no wounds Neuro oriented x3, CN's II-XII intact bilaterally, no focal motor deficits and no sensory deficits noted Psych thought process normal, cooperative, affect normal, speech normal and activity/motor behavior normal Results Lab / Micro Data 01/16/25 10:02 01/16/25 10:02 Labs: Laboratory Results - last 24 hr 01/22/25 05:58: POC Glucose 170 H 01/22/25 06:20: PT 14.6, INR 1.1 Assessment & Plan Assessment/Plan (1) Stenosis of left carotid artery: PLAN: -TCAR
[2025-01-22] MEDS: Cefazolin 1 GM/5 ML Vial 2 GM IV (07:30)
[2025-01-22] MEDS: Lidocaine 1% (5 ml sdv) 5 ML Vial IV (07:35)
[2025-01-22] MEDS: fentaNYL 100 MCG/2 ML Ampul IV (08:01)
[2025-01-22] MEDS: Heparin Injection (Vial) 5,000 UNIT/ML VIAL 7000 UNIT IV (08:22)
[2025-01-22] MEDS: Lactated Ringers 2,000 ML 2000 ML IV (08:54)
--- NOTE | 2025-01-22 09:35 | OP.PCM_ITS ---
Operative Report (Standard) Operative Information Date of Procedure: 01/22/25 Pre-Operative Diagnosis: left carotid stenosis Post-Operative Diagnosis: same Surgery/Procedure Performed: left carotid stent, trans carotid cooker pie filling: Yes Access Control Officer: Sonja Bello Tasks completed by first coat operator: Opening, Closing, Opening & closing, Implanting device, Hemostasis: Tie and Retracting Type of Anesthesia: General RN Documented Start/Stop Times: Operation Date: 01/22/25 07:30 Case Time Into Pre-Op 01/22/25 05:44 Out of Pre-Op 01/22/25 07:04 Into Recovery 01/22/25 09:56 Out of Recovery 01/22/25 11:21 Procedure Start Time: 08:10 Procedure Stop Time: 09:30 Select all DRAINS/GRAFTS/IMPLANTS that apply: Implanted device Implanted device details: [address] En Route [id number] Estimated Blood Loss: 6 Specimen collected: No Description of surgery: HPI: Patient is an 84-year-old female with asymptomatic severe left carotid art barbra stenosis. She has anatomy that which is amenable to stenting so she presents now for transcarotid artery stenting. Description of procedure: Upon obtaining informed consent and verification josefina ect patient procedure site the patient was taken to the Technical Publications Manager where she was placed under general anesthesia. She was then positioned prepped and draped in usual sterile fashion a timeout was performed. Transverse incision was made 1 fingerbreadth above the left clavicle and Bovie used dissect down through subcutaneous tissue to the level of the platysma. The platysma was divided and self-retaining retractors put in position. Further dissection was then carried down to the sternocleidomastoid between the sternal and clavicular heads. Subtenon retractors then moved deeper into the wound exposing the carotid sheath. Sharp dissection used to dissect free the jugular vein which was mobilized along its anterior border and allowing it to be retracted laterally. The common carotid artery was then identified and care taken to identify protect the adjacent nerve. Sharp dissection was used dissect free proximal to the anticipated access site and a right angle used to place a vessel loop. The patient was then heparinized and allowed to circulate for 3 minutes with subsequent heparin dosing based on ACT results. A 5-0 Prolene pursestring was then placed at the intended access site. Next under ultrasound guidance the right common femoral vein was accessed with a micropuncture needle wire. This then exchanged for a J-wire and the micropuncture sheath exchanged for the venous return sheath advanced without resistance. Next a micropuncture needle wire used access the carotid at the predetermined access site. This was then exchanged for a micropuncture sheath routine injection carotid angiogram was performed revealing satisfactory position with no extravasation or dissection. This also confirmed the location of the lesion in the carotid bifurcation. The J-wire was then advanced stopping short of the lesion and the micropuncture sheath exchanged for the flow reversal sheath advanced without resistance. The flow reversal tubing was then attached and adequate flow reversal confirmed. Next the common carotid artery was occluded with vessel loop and adequate flow reversal confirmed in the tubing. Oblique views were obtained with subtraction angiography and we then navigated the stenosis with the 014 wire advancing into the distal internal carotid artery. A 4.5 mm x 25 angioplasty balloon was then advanced and centered on the lesion and inflated to nominal for 30 seconds then deflated and withdrawn. A tapered silk Road en route stent 8-6 x 30 was advanced into position centered on the lesion and deployed. Repeat angiography revealed satisfactory stent positioning however there was some residual waist from the bulky lesion. This was then postdilated with a 5 mm x 25 angioplasty balloon inflated to nominal for 30 seconds then deflated withdrawn. Completion angiography revealed satisfactory lesion response with brisk contrast transit, no extravasation or dissection, and no plaque prolapse through the stent struts. There is satisfactory stent wall apposition and a satisfactory expansion of the stent. Flow reversal was then performed for an additional 2 minutes and the proximal clamp released with an additional 1 minute of flow reversal. The flow reversal tubing was then detached and blood returned via the venous sheath. The femoral vein sheath then withdrawn a minute pressure held until hemostasis was obtained. The carotid sheath and wire were then withdrawn and the pursestring secured with satisfactory hemostasis observed. Heparin was then reversed with protamine and the incision inspected for hemostasis. A [address] STEPHANIE was then placed via separate stab incision and incision closed with 3-0 Vicryl followed by 4 Monocryl and Dermabond for the skin. At the inclusion of case the patient was awake manage he is moving all extremities to command with cranial nerves intact. She was then taken to the recovery room with anticipated admission to intensive care unit for hemodynamic and neurologic monitoring. Surgical Findings: see above Complications Complications: No
--- NOTE | 2025-01-22 10:05 | PCM.POST.ANE ---
Anesthesia: Postop Eval I Current Vital Signs Temperature: 96.5 F Pulse Rate: 65 Blood Pressure: 112/57 Respiratory Rate: 20 Pulse Ox: 95 Oxygen Delivery Method: Nasal Cannula Oxygen Flow Rate (L/min): 2 Assessment Airway patent: Yes Spontaneous unlabored respirations: Yes Mental status: Awake and Calm nausea: No Vomiting: No Anesthesia Complication: No Fluid Hydration Crystalloid volume administer (ml): 1,300 Total IV fluid infused: 1,300 Progress Note Anesthesia document: Postop Eval 1 completed: Yes
--- NOTE | 2025-01-22 11:30 | POSTOPAN2_ITS ---
Anesthesia Postop Eval I Sum Postop Eval Completion status Anesthesia document: Postop Eval 1 completed: Yes Anesthesia Postop Eval I Summary Anesthesia Postop Eval I Summary: Anesthesia Postop Eval I: Assessment Summary Airway patent Yes 01/22/25 10:05 [email or web address] Spontaneous unlabored Yes 01/22/25 10:05 [email or web address] respirations Mental status Awake,Calm 01/22/25 10:05 [email or web address] nausea No 01/22/25 10:05 [email or web address] Vomiting No 01/22/25 10:05 [email or web address] Anesthesia Postop Eval I: Fluid Summary Crystalloid volume administer 1,300 01/22/25 10:05 [email or web address] (ml) Colloids volume administered ( ml) Blood Product volume administered (ml) Total IV fluid infused 1,300 01/22/25 10:05 [email or web address] Anesthesia Postop Eval I: Summary Notes Anesthesia Complication No 01/22/25 10:05 [email or web address] Anesthesia Complication Comment: Post-operative progress note Anesthesia: Postop Eval II Evaluation Mental status: Awake and Calm Pain Level: 1 nausea: No Vomiting: No Progress Note Post-operative progress note: A-line became dislodged in PACU. Noninvasive blood pressures are normal and stable. Patient should be fine without A-line being restarted. Complications Anesthesia Complication: No
--- NOTE | 2025-01-22 11:30 | PCM.POSTANE2 ---
Anesthesia Postop Eval I Sum Postop Eval Completion status Anesthesia document: Postop Eval 1 completed: Yes Anesthesia Postop Eval I Summary Anesthesia Postop Eval I Summary: Anesthesia Postop Eval I: Assessment Summary Airway patent Yes 01/22/25 10:05 [email or web address] Spontaneous unlabored Yes 01/22/25 10:05 [email or web address] [email or web address] respirations Mental status Awake,Calm 01/22/25 10:05 [email or web address] nausea No 01/22/25 10:05 [email or web address] [email or web address] Vomiting No 01/22/25 10:05 [email or web address] Anesthesia Postop Eval I: Fluid Summary Crystalloid volume administer 1,300 01/22/25 10:05 [email or web address] (ml) Colloids volume administered ( ml) Blood Product volume administered (ml) Total IV fluid infused 1,300 01/22/25 10:05 [email or web address] Anesthesia Postop Eval I: Summary Notes Anesthesia Complication No 01/22/25 10:05 [email or web address] Anesthesia Complication Comment: Post-operative progress note Anesthesia: Postop Eval II Evaluation Mental status: Awake and Calm Pain Level: 1 nausea: No Vomiting: No Progress Note Post-operative progress note: A-line became dislodged in PACU. Noninvasive blood pressures are normal and stable. Patient should be fine without A-line being restarted. Complications Anesthesia Complication: No
[2025-01-22 14:06] LABS: ACT Activated Clotting Time 256 sec (74-137)
[2025-01-22 14:06] LABS: ACT Activated Clotting Time 279 sec (74-137)
[2025-01-22 15:51] LABS: INR Fingerstick 1.4
[2025-01-22] MEDS: Cefazolin 1 GM/50 ML BAG IV (16:47)
[2025-01-22] MEDS: Potassium Chloride Oral Tablet 20 MEQ PO (17:35)
[2025-01-22] MEDS: Metoprolol(XL)Succ 25 MG Tablet PO (21:47)
[2025-01-22] MEDS: Lactobacillis Acidophilus 1 CAP PO (21:48)
[2025-01-23] VITALS (14 sets, daily range): BP systolic 111–138; BP diastolic 40–62; PULSE 48–56; RESP 9–18; O2SAT 95–100; BMI 27.6
[2025-01-23] MEDS: Cefazolin 1 GM/50 ML BAG IV (01:19)
[2025-01-23] MEDS: 0.9% Saline Lock 10 ML Syringe IV (06:33)
[2025-01-23 06:55] LABS: Hematocrit 27.4 % (37-47); Hemoglobin 9.1 g/dL (12.0-15.0); Immature Granulocytes Count 0.040 X10^3/uL (0.0-0.0); Mean Corp Hgb Conc 33.2 g/dL (32-36); Mean Corpuscular Volume 96.8 fL (81-99); Mean Platelet Vol. 11.1 fl (6.2-12.0); NRBC Flagged by Analyzer 0 % (0-5); Platelet Count 159 K/mm3 (150-450); RBC Distribution Width CV 15.3 % (11.6-14.6); RBC Distribution Width SD 53.7 fl (35.1-43.9); Red Blood Count 2.83 M/mm3 (4.2-5.4); White Blood Count 8.5 K/mm3 (4.4-11.0)
[2025-01-23] MEDS: Potassium Chloride Oral Tablet 20 MEQ PO (08:10)
[2025-01-23] MEDS: Lactobacillis Acidophilus 1 CAP PO (09:18)
[2025-01-23] MEDS: Magnesium Chloride 64 MG Delay Rel.Tablet 128 MG PO (09:21)
[2025-01-23] MEDS: Metoprolol(XL)Succ 25 MG Tablet PO (09:22)
--- NOTE | 2025-01-23 09:56 | PN.SURG_ITS ---
Subjective Subjective Doing well overnight. No numbness/weakness/vision loss/speech difficulty. Tolerating diet, voiding. Objective Data Objective Data A&O x 3, NAD RRR Resp non labored motor/sensory intact and equal bilateral Inc C/D/I, no erythema or hematoma. Right femoral access soft with no hematoma Vital Signs: Vital Signs Temp Pulse Resp BP Pulse Ox O2 Del Method O2 Flow Rate 97.8 F 55 L 15 137/54 H 99 Nasal Cannula 2 01/22/25 12:30 01/23/25 09:22 01/23/25 07:00 01/23/25 07:00 01/23/25 07:25 01/23/25 07:25 01/23/25 07:25 Oxygen Flow Rate (L/min) 2 Oxygen Delivery Method Nasal Cannula Weight: 156 lb 4.924 oz Body Mass Index (BMI) 27.6 Intake & Output: Intake and Output for Last 24 Hours 01/21/25 01/22/25 01/23/25 23:59 23:59 23:59 Intake Total 136.5 / 616.5 530 / 530 Output Total 960 / 960 465 / 465 Balance -823.5 / -343.5 65 / 65 Lab / Micro Data 01/23/25 06:35 01/16/25 10:02 Labs: Laboratory Results - last 24 hr 01/22/25 05:58: POC PT 15.9 H, INR 1.4 01/22/25 07:32: Activated Clotting Time 279 H 01/22/25 08:09: Activated Clotting Time 256 H 01/22/25 11:58: POC Glucose 217 H 01/22/25 16:33: POC Glucose 228 H 01/22/25 21:46: POC Glucose 214 H 01/23/25 06:35: WBC 8.5, RBC 2.83 L, Hgb 9.1 L, Hct 27.4 L, MCV 96.8, MCH 32.2 H , MCHC 33.2, RDW Std Deviation 53.7 H, RDW Coeff of Kate 15.3 H, Plt Count 159, MPV 11.1, Immature Gran % (Auto) 0.500, Neut % (Auto) 81.6 H, Lymph % (Auto) 10.3 L, Humphreys % (Auto) 7.5, Eos % (Auto) 0.0, Baso % (Auto) 0.1, Absolute Neuts (auto) 6.9, Absolute Lymphs (auto) 0.88, Nucleated RBC % 0 01/23/25 08:05: POC Glucose 169 H Assessment & Plan Assessment/Plan (1) Stenosis of left carotid artery: PLAN: -POD # 1 left TCAR -hemodynamically stable -STEPHANIE with minimal output, removed -cont progressive ambulation, diet -anticipate DC later today
--- NOTE | 2025-01-23 09:58 | CASEMGMT ---
XOCHILT HAND Assessment Face to Face with patient for initial transition planning/care coordination assessment. XOCHILT HAND introduced self and role at [facility], pt voices understanding. Pt is A&Ox4 and is resting comfortably in the chair and is calm. Pt's at the bedside. Care providers, pharmacy, and demographics verified. Admitting dx: Stenosis of left carotid artery LACE Strata: 2 PCP: Kendra Lucio Specialists: Mack (GI), Crystal (Vascular), Evangelist (Podiatry) Preferred Pharmacy: [facility] Insurance: [employer] [facility] Prescription Benefit: Yes LNOK: Calderon (H), Zahra (Daughter) Living Arrangements: Pt lives with her in a single story home with a basement and 2 steps to enter ADLs/IADLs: Pt reports that she is indep Transportation: Self, . DME: home oxygen through [employer]. Pt states that she only wears 2L @ HS only. E-Mail sent to [employer] to verify pt's current orders. Pt states that she has a concentrator, x2 portable tanks, and a pulse ox. Pt also reports that she has a BGM with sufficient supplies. Pt states that she religiously checks her BS and VS at home. Pt reports that she has a daily log for these. Pt states that she also has a FWW, WC, Shower chair, and grab bars. HHC/SNF:History at [facility] TCU and [facility] H[facility] Pt?s goal: Home Plan: Home, follow for updated oxygen Rx. Per ICU rounds, nursing plans to ambulate the pt today prior to DC. At this time, the pt denies the need for SNF, HHC, or OP Tx. Pt states that she feels safe returning home with her once she is medically ready. Pt states that her daughter works M-F and that the pt and her watch their 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 (Ages 11 and 7) every day throughout the week. Pt denies further need at this time. Di Sauceda RN, CM
--- NOTE | 2025-01-23 12:23 | DCINST_ITS ---
Discharge Instructions DC O2, CPAP, BIPAP needs Home O2 Discharge instructions: No Dressing / Incision May shower in (days): 1 Lifting Restrictions: do not lift > 20 lbs for 3 weeks Additional Activity Instructions:: do not submerge incision for 3 weeks Dressing / Incision Call your doctor if your incision/area has: Sudden Increased Bleeding, Increased Redness, Foul Smelling Discharge and Swelling at the incision site Remove Dressing in: 1 day (after shower) Cleanse incision/area with: Soap & Water Follow Up Care Test Results: Test results from this visit will be discussed in further detail at your follow- up appointment, if applicable. Discharge Plan Admission Admit Date/Time: 01/22/25 09:22 Attending Provider: Shaan Rojas Primary Care Provider: Kendra Lucio Discharge Orders/Prescriptions Prescriptions: New aspirin 81 mg tablet,delayed release (DR/EC) 81 mg PO DAILY Qty: 30 0RF Continued simvastatin 80 mg tablet 80 mg PO QHS tizanidine 4 mg tablet 2 mg PO Q8 PRN (Reason: muscle spasticity) ferrous sulfate [FeroSul] 325 mg (65 mg iron) Tablet 325 mg PO DAILY@1200 30 Days Qty: 30 0RF Patient Comments: pt states she takes at bedtime clopidogrel 75 mg Tablet 75 mg PO DAILY 30 Days Qty: 30 0RF pantoprazole 40 mg Tablet,Delayed Release (Dr/Ec) 40 mg PO BID 30 Days Qty: 60 0RF fluticasone propionate 50 mcg/actuation spray,suspension 2 spray INTRANASAL Q12H PRN (Reason: congestion) acetaminophen 500 mg capsule 500 mg PO QHS PRN (Reason: pain) gabapentin 100 mg capsule 100 mg PO TID metoprolol succinate 25 mg Tablet Extended Release 24 Hr 25 mg PO BID Qty: 60 0RF oxybutynin chloride 10 mg tablet extended release 24hr 10 mg PO DAILY glimepiride 2 mg tablet 2 mg PO DAILY furosemide 40 mg Tablet 40 mg PO DAILY 30 Days Qty: 60 2RF magnesium chloride [Mag 64] 64 mg tablet,delayed release (DR/EC) 128 mg PO DAILY losartan-hydrochlorothiazide 100-12.5 mg tablet 1 tab PO .qd Probiotic 3 billion cell capsule 3,000 mmu cells PO DAILY Rx Instructions: administer with a meal cranberry 500 mg capsule 500 mg PO DAILY Rx Instructions: administer with a meal coenzyme Q10 [Co Q-10] 100 mg capsule 100 mg PO DAILY cinnamon bark [Cinnamon] 500 mg capsule 500 mg PO DAILY diphenhydramine HCl [Aler-Cap] 25 mg capsule 25 mg PO .qd potassium chloride 20 mEq tablet extended release 20 meq PO BID amlodipine 10 mg tablet 10 mg PO .COMPLEX Qty: 90 3RF Rx Instructions: 10 mg orally DAILY: this is a dose increase, pt was using up her 5mg tablets to = 10 mg. Pt is out of med and is in store now. PLEASE FILL, thank you!!; Held warfarin 2 mg tablet 2 mg PO .COMPLEX Hold Instructions: Resume on 01/24/25. Rx Instructions: Take 2 mg Tuesday and and Tuesday, 1 mg all other days; Managed by [facility] Coumadin clinic Discontinued aspirin 325 mg capsule 325 mg PO DAILY Other Ambulatory Orders: Prothrombin Time w/INR (Routine) Timeframe: 20250122 Facility: [facility] - Location: Laboratory Ordered By: Dr. Michele Herring Referrals / Follow Up: Kendra Lucio MD [Primary Care Provider, Internal Medicine] Disposition Disposition (needs filled in before D/C Order can be placed): Home, Self Care
--- NOTE | 2025-01-23 12:31 | PCM.DC.SUM ---
Providers Date of Admission: 01/22/25 Primary Care Physician: Dr. Kendra Lucio MD Reason For Visit: Carotidstent, Station Cook, OR Staff, Shawn ESQUIVEL. LEFT Diagnosis Discharge Diagnosis (1) Stenosis of left carotid artery: Status: Acute Code(s): I65.22 - Occlusion and stenosis of left carotid artery Plan: -POD # 1 left TCAR -hemodynamically stable -STEPHANIE with minimal output, removed -cont progressive ambulation, diet -anticipate DC later today Medications at Discharge Home Medications oxybutynin chloride 10 mg tablet,extended release 24 hr 10 mg PO DAILY bladder 09/23/23 glimepiride 2 mg tablet 2 mg PO DAILY dm 12/31/23 ferrous sulfate 325 mg (65 mg iron) tablet (FeroSul) 325 mg PO DAILY@1200 supplement 30 days #30 tabs 02/03/24 furosemide 40 mg tablet 40 mg PO DAILY water pill 30 days #60 tabs 03/19/24 clopidogrel 75 mg tablet 75 mg PO DAILY a fib 30 days #30 tabs 04/05/24 pantoprazole 40 mg tablet,delayed release 40 mg PO BID reflux 30 days #60 tabs 04/05/24 simvastatin 80 mg tablet 80 mg PO QHS cholesterol 06/20/24 magnesium chloride 64 mg (magnesium chloride) tablet,delayed release (Mag 64) 128 mg PO DAILY leg cramps 08/17/24 potassium chloride 20 mEq tablet,extended release 20 meq PO BID supplement 08/20/24 amlodipine 10 mg tablet 10 mg PO .COMPLEX bp #90 tabs 09/04/24 acetaminophen 500 mg capsule 500 mg PO QHS PRN pain 10/07/24 fluticasone propionate 50 mcg/actuation nasal spray,suspension 2 spray intranasal Q12H PRN congestion 10/07/24 gabapentin 100 mg capsule 100 mg PO TID pain 10/07/24 metoprolol succinate 25 mg tablet,extended release 24 hr 25 mg PO BID bp #60 tabs 10/10/24 tizanidine 4 mg tablet 2 mg PO Q8 PRN muscle spasticity 12/13/24 warfarin 2 mg tablet 2 mg PO .COMPLEX afib 12/13/24 Held on 01/23/25. Instructions: Resume on 01/24/25. cinnamon bark 500 mg capsule (Cinnamon) 500 mg PO DAILY supplement 01/07/25 coenzyme Q10 100 mg capsule (Co Q-10) 100 mg PO DAILY supplement 01/07/25 cranberry 500 mg capsule 500 mg PO DAILY supplement 01/07/25 diphenhydramine HCl 25 mg capsule (Aler-Cap) 25 mg PO .qd allergies 01/07/25 lactobacillus combination no.4 3 billion cell capsule (Probiotic) 3,000 mmu cells PO DAILY supplement 01/07/25 losartan 100 mg-hydrochlorothiazide 12.5 mg tablet 1 tab PO .qd bp 01/07/25 aspirin 81 mg tablet,delayed release 81 mg PO DAILY #30 tabs 01/23/25 Hospital Course Operations - (left carotid stent, trans-carotid) Summary of Care Provided Hospital Course: Mrs. Lynne is an 84 yo female with severe bilateral carotid stenosis, asymptomatic. She had anatomy amenable to carotid stent and presented 01/22 for elective surgery. She tolerated the surgery well and was admitted to the ICU for hemodynamic and neurologic monitoring. Overnight she was hemodynamically stable and neurologically intact. She was progressed on diet to normal which she tolerated without N/V. On POD # 1 she continued to do well, voiding and ambulating without difficulty. Her STEPHANIE had minimal output and was removed. She conitnued to do well throughout the day and was discharged to home on 01/23. Weight / BMI Weight Weight: 156 lb 4.924 oz Body Mass Index (BMI) 27.6 ABG / Lab / Microbiology Data 01/23/25 06:35 01/16/25 10:02 Laboratory: Laboratory Results - last 24 hr 01/22/25 05:58: POC PT 15.9 H, INR 1.4 01/22/25 07:32: Activated Clotting Time 279 H 01/22/25 08:09: Activated Clotting Time 256 H 01/22/25 16:33: POC Glucose 228 H 01/22/25 21:46: POC Glucose 214 H 01/23/25 06:35: WBC 8.5, RBC 2.83 L, Hgb 9.1 L, Hct 27.4 L, MCV 96.8, MCH 32.2 H, MCHC 33.2, RDW Std Deviation 53.7 H, RDW Coeff of Kate 15.3 H, Plt Count 159, MPV 11.1, Immature Gran % (Auto) 0.500, Neut % (Auto) 81.6 H, Lymph % (Auto) 10.3 L, Todd % (Auto) 7.5, Eos % (Auto) 0.0, Baso % (Auto) 0.1, Absolute Neuts (auto) 6.9, Absolute Lymphs (auto) 0.88, Nucleated RBC % 0 01/23/25 08:05: POC Glucose 169 H 01/23/25 11:09: POC Glucose 176 H D/C Instructions May shower in (days): 1 Lifting Restrictions: do not lift > 20 lbs for 3 weeks Additional Activity Instructions: do not submerge the incision for 3 weeks Call your doctor if your incision/area has: Sudden Increased Bleeding, Increased Pain/ Swelling, Increased Redness and Foul Smelling Discharge Remove Dressing in: 1 day (after shower ) Cleanse incision/area with: Soap & Water DC O2, CPAP, BIPAP Needs Home O2 Discharge instructions: No Meaningful Use Info Meaningful Use Meaningful Use Diagnoses (Choose all that apply): None applicable Discharge Plan Admission Admit Date/Time: 01/22/25 09:22 Attending Provider: Shaan Rojas Primary Care Provider: Kendra Lucio Discharge Orders/Prescriptions Prescriptions: New aspirin 81 mg tablet,delayed release (DR/EC) 81 mg PO DAILY Qty: 30 0RF Continued simvastatin 80 mg tablet 80 mg PO QHS tizanidine 4 mg tablet 2 mg PO Q8 PRN (Reason: muscle spasticity) ferrous sulfate [FeroSul] 325 mg (65 mg iron) Tablet 325 mg PO DAILY@1200 30 Days Qty: 30 0RF Patient Comments: pt states she takes at bedtime clopidogrel 75 mg Tablet 75 mg PO DAILY 30 Days Qty: 30 0RF pantoprazole 40 mg Tablet,Delayed Release (Dr/Ec) 40 mg PO BID 30 Days Qty: 60 0RF fluticasone propionate 50 mcg/actuation spray,suspension 2 spray INTRANASAL Q12H PRN (Reason: congestion) acetaminophen 500 mg capsule 500 mg PO QHS PRN (Reason: pain) gabapentin 100 mg capsule 100 mg PO TID metoprolol succinate 25 mg Tablet Extended Release 24 Hr 25 mg PO BID Qty: 60 0RF oxybutynin chloride 10 mg tablet extended release 24hr 10 mg PO DAILY glimepiride 2 mg tablet 2 mg PO DAILY furosemide 40 mg Tablet 40 mg PO DAILY 30 Days Qty: 60 2RF magnesium chloride [Mag 64] 64 mg tablet,delayed release (DR/EC) 128 mg PO DAILY losartan-hydrochlorothiazide 100-12.5 mg tablet 1 tab PO .qd Probiotic 3 billion cell capsule 3,000 mmu cells PO DAILY Rx Instructions: administer with a meal cranberry 500 mg capsule 500 mg PO DAILY Rx Instructions: administer with a meal coenzyme Q10 [Co Q-10] 100 mg capsule 100 mg PO DAILY cinnamon bark [Cinnamon] 500 mg capsule 500 mg PO DAILY diphenhydramine HCl [Aler-Cap] 25 mg capsule 25 mg PO .qd potassium chloride 20 mEq tablet extended release 20 meq PO BID amlodipine 10 mg tablet 10 mg PO .COMPLEX Qty: 90 3RF Rx Instructions: 10 mg orally DAILY: this is a dose increase, pt was using up her 5mg tablets to = 10 mg. Pt is out of med and is in store now. PLEASE FILL, thank you!!; Held warfarin 2 mg tablet 2 mg PO .COMPLEX Hold Instructions: Resume on 01/24/25. Rx Instructions: Take 2 mg Tuesday and and Tuesday, 1 mg all other days; Managed by [facility] Coumadin clinic Discontinued aspirin 325 mg capsule 325 mg PO DAILY Other Ambulatory Orders: Prothrombin Time w/INR (Routine) Timeframe: 20250122 Facility: [facility] - Location: Laboratory Ordered By: Dr. Michele Herring Referrals / Follow Up: Kendra Lucio MD [Primary Care Provider, Internal Medicine] Disposition Disposition (needs filled in before D/C Order can be placed): Home, Self Care
--- NOTE | 2025-01-23 13:27 | PHA.DC.MR.R ---
Pharmacy MD Med Reconciliation Pharmacy Service has performed discharge medication reconciliation for this patient. The patient's discharge medication list was reviewed for discrepancies and discrepancies were resolved. Medications at Discharge Home Medications oxybutynin chloride 10 mg tablet,extended release 24 hr 10 mg PO DAILY bladder 09/23/23 glimepiride 2 mg tablet 2 mg PO DAILY dm 12/31/23 ferrous sulfate 325 mg (65 mg iron) tablet (FeroSul) 325 mg PO DAILY@1200 supplement 30 days #30 tabs 02/03/24 furosemide 40 mg tablet 40 mg PO DAILY water pill 30 days #60 tabs 03/19/24 clopidogrel 75 mg tablet 75 mg PO DAILY a fib 30 days #30 tabs 04/05/24 pantoprazole 40 mg tablet,delayed release 40 mg PO BID reflux 30 days #60 tabs 04/05/24 simvastatin 80 mg tablet 80 mg PO QHS cholesterol 06/20/24 magnesium chloride 64 mg (magnesium chloride) tablet,delayed release (Mag 64) 128 mg PO DAILY leg cramps 08/17/24 potassium chloride 20 mEq tablet,extended release 20 meq PO BID supplement 08/20/24 amlodipine 10 mg tablet 10 mg PO .COMPLEX bp #90 tabs 09/04/24 acetaminophen 500 mg capsule 500 mg PO QHS PRN pain 10/07/24 fluticasone propionate 50 mcg/actuation nasal spray,suspension 2 spray intranasal Q12H PRN congestion 10/07/24 gabapentin 100 mg capsule 100 mg PO TID pain 10/07/24 metoprolol succinate 25 mg tablet,extended release 24 hr 25 mg PO BID bp #60 tabs 10/10/24 tizanidine 4 mg tablet 2 mg PO Q8 PRN muscle spasticity 12/13/24 warfarin 2 mg tablet 2 mg PO .COMPLEX afib 12/13/24 Held on 01/23/25. Instructions: Resume on 01/24/25. cinnamon bark 500 mg capsule (Cinnamon) 500 mg PO DAILY supplement 01/07/25 coenzyme Q10 100 mg capsule (Co Q-10) 100 mg PO DAILY supplement 01/07/25 cranberry 500 mg capsule 500 mg PO DAILY supplement 01/07/25 diphenhydramine HCl 25 mg capsule (Aler-Cap) 25 mg PO .qd allergies 01/07/25 lactobacillus combination no.4 3 billion cell capsule (Probiotic) 3,000 mmu cells PO DAILY supplement 01/07/25 losartan 100 mg-hydrochlorothiazide 12.5 mg tablet 1 tab PO .qd bp 01/07/25 aspirin 81 mg tablet,delayed release 81 mg PO DAILY #30 tabs 01/23/25
== END 2025-01-23 13:20 | disposition home or self-care (01) | DRG 35 ==
LOC: ICU 17:04
PROVIDERS: Anesthesiology; Admitting Provider Surgery Trauma Surgery; PCP Internal Medicine; Referring Provider Surgery Trauma Surgery; Visit Provider Surgery Trauma Surgery
PROC: 037L3DZ Dilation of Left Internal Carotid Artery with Intraluminal Device, Percutaneous Approach (ICD-10-PCS; CPT 37236; principal; 2025-01-22 07:00)
DX: I65.22 Occlusion and stenosis of left carotid artery (principal); I42.0 Dilated cardiomyopathy; I50.32 Chronic diastolic (congestive) heart failure; I11.0 Hypertensive heart disease with heart failure; E11.9 Type 2 diabetes mellitus without complications; Z89.431 Acquired absence of right foot; Z79.84 Long term (current) use of oral hypoglycemic drugs; Z79.02 Long term (current) use of antithrombotics/antiplatelets; Z79.899 Other long term (current) drug therapy; Z86.73 Personal history of transient ischemic attack (TIA), and cerebral infarction without residual deficits
CPT/HCPCS: 36415; 36416; 37215; 76937; 80048; 82962; 83036; 85025; 85027; 85347; 85610; 86850; 86900; 86901; 94668; 97802; 99252; A4648; C1725; C1769; C1876; C1884; C1894; A4216; G0463; J2405

== ENCOUNTER 2025-02-26 09:38 | Inpatient (IN) | payer MEDICARE, SELFPAY ==
--- NOTE | 2025-02-12 21:47 | PAT.ANESEVAL ---
Pre-Assessment Diagnosis/Proposed Procedure Planned Operative Procedure(s): CAROTIDSTENT RIGHT Anesthesia History Anesthesia History - electoral officer: Anesthesia History - electoral officer Hx Hospitalization Yes: 09/2024 BLEEDING ULCER 02/12/25 10:35 Any Problems With Anesthesia No 02/12/25 10:35 Cholinesterase deficiency No 02/12/25 10:35 You/Your Family Experience No 02/12/25 10:35 fever (hyperthermia) with Relationship Recent Exposure to Contagious No 10/09/24 00:03 Disease Does patient have nerve No 02/12/25 10:35 stimulator Patient instructed to have device shut off --Does patient have Pacemaker or ICD? When Was Last Pacemaker Check QUESTION #4 FULL TEXT: You/Your Family Experience fever (hyperthermia) with Anesthesia Last Oral Intake Last Oral intake: Last Oral Intake NPO since Meds taken in AM with sips of water? Meds patient instructed to take am of surgery PONV PONV - electoral officer: PONV - electoral officer Female Yes 02/12/25 10:35 HX of Motion Sickness No 02/12/25 10:35 HX of N/V After Surgery No 02/12/25 10:35 Non-Smoker Yes 02/12/25 10:35 Duration of Surgery greater Yes 02/12/25 10:35 than 60 minutes Number of Risk Factors 3 02/12/25 10:35 PONV Score Moderate Risk 02/12/25 10:35 Height & Weight Height & Weight: Anesthesia: Height & Weight Height 5 ft 3 in 12/13/24 08:44 Respiratory Assessment Respiratory Assessment - electoral officer: Respiratory Tract Infection Hx - electoral officer Hx Respiratory Tract Infection No 02/12/25 10:35 STOP Sleep Apnea STOP Sleep Apnea - electoral officer: STOP Sleep Apnea - electoral officer Hx Hypertension Yes: CONTROLLED WITH MED 02/12/25 10:35 Hx Sleep Apnea No 02/12/25 10:35 CPAP No 02/12/25 10:35 BIPAP No 02/12/25 10:35 Do you snore loudly (louder Yes 02/12/25 10:35 than talking or can be heard Do you often feel tired/ No 02/12/25 10:35 fatigued/ sleepy during daytime? Has anyone observed you stop Yes 02/12/25 10:35 breathing during sleep? STOP Results Positive 02/12/25 10:35 QUESTION #5 FULL TEXT : Do you snore loudly (louder than talking or can be heard through closed doors)? 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 Specify any problems Hx of Preganancy in last 3 No 02/12/25 10:35 Months Nurse Filling Out Transfusion DSCHRIBER 02/12/25 10:35 & Questions: Date: 02/12/25 02/12/25 10:35 Time: 10:38 02/12/25 10:35 Patient unable to answer at this time (ie. confused, unrespo /Reproduction History /Reproductive History - electoral officer: /Reproductive Hx- electoral officer Hx Now No 02/12/25 10:35 Gestational Age (in weeks): EDC: Hx Hx Para Hx Section SAB No 02/12/25 10:35 PFSH Medical History (Updated 02/12/25 @ 10:56 by Claudia Leahy) Arthritis OAB (overactive bladder) Restless leg syndrome Hx of Clostridium difficile infection GERD (gastroesophageal reflux disease) Shortness of breath Chronic cough Leg cramping Edema History of carotid artery disease Wears hearing aid in both ears Diabetes Sleep apnea Hx of cardiovascular stress test Hx of echocardiogram Cardiology follow-up encounter (HFpEF) heart failure with preserved ejection fraction Pleural effusion, left TIA (transient ischemic attack) Wears glasses Depression Non-smoker Hypertension Gastric ulcer Aortic valve stenosis Atrial fibrillation Dilated cardiomyopathy Prolonged QT interval Elevated blood pressure reading without diagnosis of hypertension Factor V Leiden Anxiety Hypokalemia Acute hypoxemic respiratory failure CHF (congestive heart failure) Home Medications ?Medication ?Instructions ?Recorded ?Last Taken ?Type oxybutynin chloride 10 mg 10 mg PO DAILY bladder 09/23/23 01/21/25 History tablet,extended release 24 hr glimepiride 2 mg tablet 2 mg PO DAILY dm 12/31/23 01/21/25 History furosemide 40 mg tablet 40 mg PO DAILY water pill 30 days 03/19/24 01/21/25 Rx #60 tabs clopidogrel 75 mg tablet 75 mg PO DAILY a fib 30 days #30 04/05/24 01/21/25 Rx tabs pantoprazole 40 mg tablet,delayed 40 mg PO BID reflux 30 days #60 04/05/24 01/22/25 Rx release tabs simvastatin 80 mg tablet 80 mg PO QHS cholesterol 06/20/24 01/21/25 History magnesium chloride 64 mg 128 mg PO DAILY leg cramps 08/17/24 01/21/25 History (magnesium chloride) tablet,delayed release (Mag 64) potassium chloride 20 mEq 20 meq PO BID supplement 08/20/24 01/21/25 History tablet,extended release acetaminophen 500 mg capsule 500 mg PO QHS PRN pain 10/07/24 01/21/25 History fluticasone propionate 50 2 spray intranasal Q12H PRN 10/07/24 01/21/25 History mcg/actuation nasal congestion spray,suspension gabapentin 100 mg capsule 100 mg PO TID pain 10/07/24 01/21/25 History metoprolol succinate 25 mg 25 mg PO BID bp #60 tabs 10/10/24 01/22/25 Rx tablet,extended release 24 hr tizanidine 4 mg tablet 2 mg PO Q8 PRN muscle spasticity 12/13/24 01/21/25 History warfarin 2 mg tablet 2 mg PO SUMOWEFRSA afib 12/13/24 01/19/25 History cinnamon bark 500 mg capsule 500 mg PO DAILY supplement 01/07/25 01/21/25 History (Cinnamon) coenzyme Q10 100 mg capsule (Co 100 mg PO DAILY supplement 01/07/25 01/21/25 History Q-10) cranberry 500 mg capsule 500 mg PO DAILY supplement 01/07/25 01/21/25 History diphenhydramine HCl 25 mg capsule 25 mg PO DAILY allergies 01/07/25 01/21/25 History (Aler-Cap) lactobacillus combination no.4 3 3,000 mmu cells PO DAILY supplement 01/07/25 01/21/25 History billion cell capsule (Probiotic) losartan 100 1 tab PO DAILY bp 01/07/25 01/21/25 History mg-hydrochlorothiazide 12.5 mg tablet aspirin 81 mg tablet,delayed 81 mg PO DAILY HEART HEALTH #30 01/23/25 Unknown Rx release tabs amlodipine 10 mg tablet 10 mg PO DAILY bp 02/12/25 Unknown History ferrous sulfate 325 mg (65 mg 325 mg PO QHS supplement 02/12/25 Unknown History iron) tablet (FeroSul) warfarin 1 mg tablet 1 mg PO TUTH AFIB 02/12/25 Unknown History Allergy/AdvReac Type Severity Reaction Status Date / Time benazepril (From Lotensin) Allergy Mild DOESNT Verified 02/12/25 10:16 REMEMBER quinapril (From Accupril) Allergy Mild UNKNOWN Verified 02/12/25 10:16 Sulfa (Sulfonamide Allergy Mild Hives Verified 02/12/25 10:16 Antibiotics) verapamil (From Calan) Allergy Mild UNKNOWN Verified 02/12/25 10:16 Family History Mother Diabetes Father Diabetes CVA (cerebral vascular accident) Heart disease Hypertension Myocardial infarction CAD (coronary artery disease) Brother Myocardial infarction Hypertension Heart disease CAD (coronary artery disease) Sister NAFLD (nonalcoholic fatty liver disease) Other Asthma COPD (chronic obstructive pulmonary disease) Surgical History (Updated 02/12/25 @ 10:56 by Claudia Leahy) Hx of right cataract extraction Hx of left cataract extraction Hx of cardiac catheterization History of esophagogastroduodenoscopy (EGD) (10/08/24) Hx of amputation History of transmetatarsal amputation of right foot History of femoropopliteal bypass S/P carotid endarterectomy Social History household members: spouse Smoking Status: Never smoker alcohol intake: never substance use type: does not use Audit: Pertinent Findings Pertinent Findings EKG Perinent findings: December 13, 2024. Sinus bradycardia with first-degree AV block with PSVC's. LAD. Septal infarct seen on or before October 09, 2024. Stress test pertinent findings: 11/14/2023. Negative for ischemia at max predicted heart rate. 4.2 METS. EF of 55%. Visualized aorta has a max dimension of 3.8 cm. Echo (EF%) pertinent findings: May 09, 2024. EF is 63%. Dilated aorta to max dimension of 4.1 centimeters. January 02, 2024. EF of 35 to 40%. Mild calcific aortic valve stenosis. Consult pertinent findings: December 13, 2024. Julio Cesar YUN. 1. Chronic [id number] score is 5. Patient's last echo showed a EF of 63%. Rate control with metoprolol. Anticoagulation with warfarin. Patient appears stable. We will continue current medical therapy and continue to monitor. 2. Long-term anticoagulant use. Patient is to continue Coumadin therapy. Monitor INR with PCP/Coumadin clinic. 3. Aortic valve [id number]. Continue medical therapy and continue to monitor. 4. Peripheral vascular disease-patient is to follow anticoagulation recommendations per vascular team. Echo shows preserved EF. May proceed from cardiac standpoint. Additional pertinent findings: Carotid duplex ultrasound 05/08/2024. LILI has a 50 to 69% stenosis. LICA greater than 70% stenosis. Recommendation Anesthesia Recommendation Anesthesia recommendation: OPTIMIZED for anesthesia
[2025-02-20 09:59] LABS: Hematocrit 33.0 % (37-47); Hemoglobin 11.2 g/dL (12.0-15.0); Mean Corp Hgb Conc 33.9 g/dL (32-36); Mean Corpuscular Volume 97.1 fL (81-99); Mean Platelet Vol. 10.7 fl (6.2-12.0); Platelet Count 219 K/mm3 (150-450); RBC Distribution Width CV 15.5 % (11.6-14.6); RBC Distribution Width SD 54.4 fl (35.1-43.9); Red Blood Count 3.40 M/mm3 (4.2-5.4); White Blood Count 4.4 K/mm3 (4.4-11.0)
[2025-02-20 10:06] LABS: Prothrombin Time (Protime)PT. 16.8 SECONDS (11.7-14.9)
[2025-02-20 10:33] LABS: Anion Gap 15 (5-15); BUN 20 mg/dL (4-19); BUN/Creat Ratio 17.8 RATIO (10-20); Calcium,Total 9.2 mg/dL (7.6-11.0); Carbon Dioxide 19.0 mmol/L (21.0-32.0); Chloride 101 mmol/L (98-108); Glucose 344 mg/dL (70-99); Potassium 4.3 mmol/L (3.3-5.1)
--- NOTE | 2025-02-21 16:22 | PAT.ANESEVAL ---
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 When Was Last Pacemaker Check QUESTION #4 FULL TEXT: You/Your Family Experience fever (hyperthermia) with Anesthesia Last Oral Intake Last Oral intake: Last Oral Intake NPO since Meds taken in AM with sips of water? Meds patient instructed to take am of surgery PONV PONV - senior asp net developer: PONV - senior asp net developer Female Yes 02/12/25 10:35 HX of Motion Sickness No 02/12/25 10:35 HX of N/V After Surgery No 02/12/25 10:35 Non-Smoker Yes 02/12/25 10:35 Duration of Surgery greater Yes 02/12/25 10:35 than 60 minutes Number of Risk Factors 3 02/12/25 10:35 PONV Score Moderate Risk 02/12/25 10:35 Height & Weight Height & Weight: Anesthesia: Height & Weight Height 5 ft 3 in 12/13/24 08:44 Respiratory Assessment Respiratory Assessment - senior asp net developer: Respiratory Tract Infection Hx - senior asp net developer Hx Respiratory Tract Infection No 02/12/25 10:35 STOP Sleep Apnea STOP Sleep Apnea - senior asp net developer: STOP Sleep Apnea - senior asp net developer Hx Hypertension Yes: CONTROLLED WITH MED 02/12/25 10:35 Hx Sleep Apnea No 02/12/25 10:35 CPAP No 02/12/25 10:35 BIPAP No 02/12/25 10:35 Do you snore loudly (louder Yes 02/12/25 10:35 than talking or can be heard Do you often feel tired/ No 02/12/25 10:35 fatigued/ sleepy during daytime? Has anyone observed you stop Yes 02/12/25 10:35 breathing during sleep? STOP Results Positive 02/12/25 10:35 QUESTION #5 FULL TEXT : Do you snore loudly (louder than talking or can be heard through closed doors)? 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 Specify any problems Hx of Preganancy in last 3 No 02/12/25 10:35 Months Nurse Filling Out Transfusion DSCHRIBER 02/12/25 10:35 & Questions: Date: 02/12/25 02/12/25 10:35 Time: 10:38 02/12/25 10:35 Patient unable to answer at this time (ie. confused, unrespo /Reproduction History /Reproductive History - senior asp net developer: /Reproductive Hx- senior asp net developer Hx Now No 02/12/25 10:35 Gestational Age (in weeks): EDC: Hx Hx Para Hx Section SAB No 02/12/25 10:35 PFSH Medical History (Updated 02/12/25 @ 10:56 by Claudia Leahy) Arthritis OAB (overactive bladder) Restless leg syndrome Hx of Clostridium difficile infection GERD (gastroesophageal reflux disease) Shortness of breath Chronic cough Leg cramping Edema History of carotid artery disease Wears hearing aid in both ears Diabetes Sleep apnea Hx of cardiovascular stress test Hx of echocardiogram Cardiology follow-up encounter (HFpEF) heart failure with preserved ejection fraction Pleural effusion, left TIA (transient ischemic attack) Wears glasses Depression Non-smoker Hypertension Gastric ulcer Aortic valve stenosis Atrial fibrillation Dilated cardiomyopathy Prolonged QT interval Elevated blood pressure reading without diagnosis of hypertension Factor V Leiden Anxiety Hypokalemia Acute hypoxemic respiratory failure CHF (congestive heart failure) Home Medications ?Medication ?Instructions ?Recorded ?Last Taken ?Type oxybutynin chloride 10 mg 10 mg PO DAILY bladder 09/23/23 01/21/25 History tablet,extended release 24 hr glimepiride 2 mg tablet 2 mg PO DAILY dm 12/31/23 01/21/25 History furosemide 40 mg tablet 40 mg PO DAILY water pill 30 days 03/19/24 01/21/25 Rx #60 tabs clopidogrel 75 mg tablet 75 mg PO DAILY a fib 30 days #30 04/05/24 01/21/25 Rx tabs pantoprazole 40 mg tablet,delayed 40 mg PO BID reflux 30 days #60 04/05/24 01/22/25 Rx release tabs simvastatin 80 mg tablet 80 mg PO QHS cholesterol 06/20/24 01/21/25 History magnesium chloride 64 mg 128 mg PO DAILY leg cramps 08/17/24 01/21/25 History (magnesium chloride) tablet,delayed release (Mag 64) potassium chloride 20 mEq 20 meq PO BID supplement 08/20/24 01/21/25 History tablet,extended release acetaminophen 500 mg capsule 500 mg PO QHS PRN pain 10/07/24 01/21/25 History fluticasone propionate 50 2 spray intranasal Q12H PRN 10/07/24 01/21/25 History mcg/actuation nasal congestion spray,suspension gabapentin 100 mg capsule 100 mg PO TID pain 10/07/24 01/21/25 History metoprolol succinate 25 mg 25 mg PO BID bp #60 tabs 10/10/24 01/22/25 Rx tablet,extended release 24 hr tizanidine 4 mg tablet 2 mg PO Q8 PRN muscle spasticity 12/13/24 01/21/25 History warfarin 2 mg tablet 2 mg PO SUMOWEFRSA afib 12/13/24 01/19/25 History cinnamon bark 500 mg capsule 500 mg PO DAILY supplement 01/07/25 01/21/25 History (Cinnamon) coenzyme Q10 100 mg capsule (Co 100 mg PO DAILY supplement 01/07/25 01/21/25 History Q-10) cranberry 500 mg capsule 500 mg PO DAILY supplement 01/07/25 01/21/25 History diphenhydramine HCl 25 mg capsule 25 mg PO DAILY allergies 01/07/25 01/21/25 History (Aler-Cap) lactobacillus combination no.4 3 3,000 mmu cells PO DAILY supplement 01/07/25 01/21/25 History billion cell capsule (Probiotic) losartan 100 1 tab PO DAILY bp 01/07/25 01/21/25 History mg-hydrochlorothiazide 12.5 mg tablet aspirin 81 mg tablet,delayed 81 mg PO DAILY HEART HEALTH #30 01/23/25 Unknown Rx release tabs amlodipine 10 mg tablet 10 mg PO DAILY bp 02/12/25 Unknown History ferrous sulfate 325 mg (65 mg 325 mg PO QHS supplement 02/12/25 Unknown History iron) tablet (FeroSul) warfarin 1 mg tablet 1 mg PO TUTH AFIB 02/12/25 Unknown History Allergy/AdvReac Type Severity Reaction Status Date / Time benazepril (From Lotensin) Allergy Mild DOESNT Verified 02/12/25 10:16 REMEMBER quinapril (From Accupril) Allergy Mild UNKNOWN Verified 02/12/25 10:16 Sulfa (Sulfonamide Allergy Mild Hives Verified 02/12/25 10:16 Antibiotics) verapamil (From Calan) Allergy Mild UNKNOWN Verified 02/12/25 10:16 Family History Mother Diabetes Father Diabetes CVA (cerebral vascular accident) Heart disease Hypertension Myocardial infarction CAD (coronary artery disease) Brother Myocardial infarction Hypertension Heart disease CAD (coronary artery disease) Sister NAFLD (nonalcoholic fatty liver disease) Other Asthma COPD (chronic obstructive pulmonary disease) Surgical History (Updated 02/12/25 @ 10:56 by Claudia Leahy) Hx of right cataract extraction Hx of left cataract extraction Hx of cardiac catheterization History of esophagogastroduodenoscopy (EGD) (10/08/24) Hx of amputation History of transmetatarsal amputation of right foot History of femoropopliteal bypass S/P carotid endarterectomy Social History household members: spouse Smoking Status: Never smoker alcohol intake: never substance use type: does not use Audit: Pertinent Findings HISTORY of Pertinent Findings History of Pertinent Findings: EKG Pertinent Findings EKG Perinent findings December 13, 2024. Sinus 02/12/25 21:52 bradycardia with first- degree AV block with PSVC's. LAD. Septal infarct seen on or before October 09, 2024. Stress Test Pertinent Findings Stress test pertinent findings 11/14/2023. Negative for 02/12/25 21:59 ischemia at max predicted heart rate. 4.2 METS. EF of 55%. Visualized aorta has a max dimension of 3.8 cm. Echo Pertinent Findings Echo (EF%) pertinent findings May 09, 2024. EF is 63%. 02/12/25 21:57 Dilated aorta to max dimension of 4.1 centimeters . January 02, 2024. EF of 35 to 40%. Mild calcific aortic valve stenosis. Consult Pertinent Findings Consult pertinent findings December 13, 2024. 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 02/12/25 22:03 1. Chronic [id number]- VASc score is 5. Patient's last echo showed a EF of 63% . Rate control with metoprolol. Anticoagulation with warfarin. Patient appears stable. We will continue current medical therapy and continue to monitor. 2. Long-term anticoagulant use. Patient is to continue Coumadin therapy. Monitor INR with PCP/Coumadin clinic . 3. Aortic valve stenosis- mild-stable. Continue medical therapy and continue to monitor. 4. Peripheral vascular disease-patient is to follow anticoagulation recommendations per vascular team. Echo shows preserved EF. May proceed from cardiac standpoint. Additional Pertinent Findings Additional pertinent findings Carotid duplex ultrasound / 02/12/25 21:57 10/2024. LILI has a 50 to 69 % stenosis. LICA greater than 70% stenosis. Pertinent Findings Additional pertinent findings: Glucose on BMP from 02/20/2025 resulted at 344. Reviewing the chart on 01/16/2025 glucose was 337. Hemoglobin A1c from 01/16/2025 7.3. Recommendation Anesthesia Recommendation Anesthesia recommendation: OPTIMIZED for anesthesia
[2025-02-26] VITALS (32 sets, daily range): BP systolic 110–162; BP diastolic 40–101; PULSE 57–91; RESP 11–21; TEMP 36.1–37.1; O2SAT 92–99; BMI 26.9; BMI 28.6
[2025-02-26] MEDS: Lactated Ringers 1,000 ML 15 ML IV (06:25)
--- NOTE | 2025-02-26 06:55 | PCM.PRE.AN2 ---
ASA Classification* ASA Classification ASA Classification: 3 Assessment & Plan Anesthesia* Anesthesia Assessment Anesthesia Assessment: Discussed sedation and/or anesthesia options, risks, benefits, and alternatives with patient/parents/legal guardian/POA. Questions invited. The patient/parents/legal guardian/POA seems to understand and agrees to proceed with anesthesia plan. Reviewed the physical assessment, medical history, allergy history and patient home medications list prior to surgery/procedure/anesthetic and documented any changes. Performed airway and anesthesia risk assessments. Anesthesia Type Anesthesia Type: General and MAC History Source History Obtained from:: Patient and Chart Anesthesia Focused Assessment* Temperature: 98.2 F Pulse Rate: 57 Blood Pressure: 122/65 Respiratory Rate: 16 Pulse Ox: 98 Oxygen Delivery Method: Room Air Airway Assessment Mouth opens: >3 cm Mallampati Score: II Teeth Condition: Intact and Caps/Crowns Neck Range of motion (ROM): Limited ROM Labs Anesthesia Preop lab: CBC WBC, (4.4-11.0) 4.4 K/mm3 02/20/25, : RBC, (4.2-5.4) 3.40 M/mm3 L 02/20/25, : Hgb, (12.0-15.0) 11.2 g/dL L 02/20/25, : Hct, (37-47) 33.0 % L 02/20/25, : Plt Count, (150-450) 219 K/mm3 02/20/25, :33 CHEMISTRY Potassium, (3.3-5.1) 4.3 mmol/L 02/20/25, : Sodium, (133-145) 134 mmol/L 02/20/25, :33 Magnesium, (1.5-2.2) 2.0 mg/dL 10/07/24, 22:22 Phosphorus, (2.5-4.9) 4.1 mg/dL 03/08/24, 05:15 BUN, (4-19) 20 mg/dL H 02/20/25, :33 Creatinine, (0.70-1.20) 1.12 mg/dL 02/20/25, :33 Glucose, (70-99) 344 mg/dL H 02/20/25, :33 POC Glucose, (74-106) 176 mg/dL H 01/23/25, 11:09 TSH, (0.358-3.740) 5.590 uIU/mL H 03/08/24, 05:15 COAG PT, (11.7-14.9) 16.8 SECONDS H 02/20/25, 09:33 Pre-Assessment Diagnosis/Proposed Procedure Planned Operative Procedure(s): CAROTIDSTENT RIGHT Anesthesia History Anesthesia History - seed laboratory technician: Anesthesia History - seed laboratory technician Hx Hospitalization Yes: 09/2024 BLEEDING ULCER 02/12/25 10:35 Any Problems With Anesthesia No 02/12/25 10:35 Cholinesterase deficiency No 02/12/25 10:35 You/Your Family Experience No 02/12/25 10:35 fever (hyperthermia) with Relationship Recent Exposure to Contagious No 02/26/25 06:18 Disease Does patient have nerve No 02/12/25 10:35 stimulator Patient instructed to have device shut off --Does patient have Pacemaker No 02/26/25 06:18 or ICD? When Was Last Pacemaker Check QUESTION #4 FULL TEXT: You/Your Family Experience fever (hyperthermia) with Anesthesia Last Oral Intake Last Oral intake: Last Oral Intake NPO since 19:30 02/26/25 06:18 Meds taken in AM with sips of water? Meds patient instructed to take am of surgery PONV PONV - seed laboratory technician: PONV - seed laboratory technician Female Yes 02/12/25 10:35 HX of Motion Sickness No 02/12/25 10:35 HX of N/V After Surgery No 02/12/25 10:35 Non-Smoker Yes 02/12/25 10:35 Duration of Surgery greater Yes 02/12/25 10:35 than 60 minutes Number of Risk Factors 3 02/12/25 10:35 PONV Score Moderate Risk 02/12/25 10:35 Height & Weight Height & Weight: Anesthesia: Height & Weight Height 5 ft 3 in 02/26/25 06:18 Weight: 68.8 kg 02/26/25 06:18 Body Mass Index (BMI) 26.9 02/26/25 06:18 Respiratory Assessment Respiratory Assessment - seed laboratory technician: Respiratory Tract Infection Hx - seed laboratory technician Hx Respiratory Tract Infection No 02/12/25 10:35 STOP Sleep Apnea STOP Sleep Apnea - seed laboratory technician: STOP Sleep Apnea - seed laboratory technician Hx Hypertension Yes: CONTROLLED WITH MED 02/12/25 10:35 Hx Sleep Apnea No 02/12/25 10:35 CPAP No 02/12/25 10:35 BIPAP No 02/12/25 10:35 Do you snore loudly (louder Yes 02/12/25 10:35 than talking or can be heard Do you often feel tired/ No 02/12/25 10:35 fatigued/ sleepy during daytime? Has anyone observed you stop Yes 02/12/25 10:35 breathing during sleep? STOP Results Positive 02/12/25 10:35 QUESTION #5 FULL TEXT : Do you snore loudly (louder than talking or can be heard through closed doors)? Tobacco Use History Tobacco Use History - seed laboratory technician: Tobacco Use History - seed laboratory technician Tobacco Use Smoking Status Never smoker 02/12/25 10:35 Hx Tobacco Use No 02/12/25 10:35 Years Smoking Packs Smoked per Day Smoking Cessation Date was within the last 15 years Hx Smoking Cessation Date Hx Smoking Cessation Counseling Hematologic Medial History Hematologic Hx - seed laboratory technician: Hematologic Medical Hx - stock mixer Hx of Blood Transfusion Yes 02/12/25 10:35 Hx of Transfusion in last 3 No 02/12/25 10:35 Months Date of Last Transfusion (if within last 3 months) Ever experience any problems No 02/12/25 10:35 with transfusion(s)? Specify any problems Hx of Preganancy in last 3 No 02/12/25 10:35 Months Nurse Filling Out Transfusion DSCHRIBER 02/12/25 10:35 & Questions: Date: 02/12/25 02/12/25 10:35 Time: 10:38 02/12/25 10:35 Patient unable to answer at this time (ie. confused, unrespo /Reproduction History /Reproductive History - seed laboratory technician: /Reproductive Hx- seed laboratory technician Hx Now No 02/12/25 10:35 Gestational Age (in weeks): EDC: Hx Hx Para Hx Section SAB No 02/12/25 10:35 Active Medications Active Medications: Current Medications Generic Name Dose Route Start Last Admin Trade Name Freq PRN Reason Stop Dose Admin Cefazolin Sodium 2 gm/ Sodium 110 mls @ 200 mls/hr 02/26/25 07:00 Chloride IV 02/26/25 07:32 INTRAOP ONE Lactated Ringer's 1,000 mls @ 15 mls/hr 02/26/25 06:00 02/26/25 06:25 IV 15 mls/hr .Q48H KAVYA Administration PFSH Medical History Arthritis OAB (overactive bladder) Restless leg syndrome Hx of Clostridium difficile infection GERD (gastroesophageal reflux disease) Shortness of breath Chronic cough Leg cramping Edema History of carotid artery disease Wears hearing aid in both ears Diabetes Sleep apnea Hx of cardiovascular stress test Hx of echocardiogram Cardiology follow-up encounter (HFpEF) heart failure with preserved ejection fraction Pleural effusion, left TIA (transient ischemic attack) Wears glasses Depression Non-smoker Hypertension Gastric ulcer Aortic valve stenosis Atrial fibrillation Dilated cardiomyopathy Prolonged QT interval Elevated blood pressure reading without diagnosis of hypertension Factor V Leiden Anxiety Hypokalemia Acute hypoxemic respiratory failure CHF (congestive heart failure) Home Medications ?Medication ?Instructions ?Recorded ?Last Taken ?Type oxybutynin chloride 10 mg 10 mg PO DAILY bladder 09/23/23 02/25/25 History tablet,extended release 24 hr glimepiride 2 mg tablet 2 mg PO DAILY dm 12/31/23 01/21/25 History furosemide 40 mg tablet 40 mg PO DAILY water pill 30 days 03/19/24 02/25/25 Rx #60 tabs clopidogrel 75 mg tablet 75 mg PO DAILY a fib 30 days #30 04/05/24 02/22/25 Rx tabs pantoprazole 40 mg tablet,delayed 40 mg PO BID reflux 30 days #60 04/05/24 02/26/25 05:00 Rx release tabs simvastatin 80 mg tablet 80 mg PO QHS cholesterol 06/20/24 02/25/25 History magnesium chloride 64 mg 128 mg PO DAILY leg cramps 08/17/24 02/25/25 History (magnesium chloride) tablet,delayed release (Mag 64) potassium chloride 20 mEq 20 meq PO BID supplement 08/20/24 02/25/25 History tablet,extended release acetaminophen 500 mg capsule 500 mg PO QHS PRN pain 10/07/24 01/21/25 History fluticasone propionate 50 2 spray intranasal Q12H PRN 10/07/24 01/21/25 History mcg/actuation nasal congestion spray,suspension gabapentin 100 mg capsule 100 mg PO TID pain 10/07/24 02/25/25 History metoprolol succinate 25 mg 25 mg PO BID bp #60 tabs 10/10/24 02/26/25 05:00 Rx tablet,extended release 24 hr tizanidine 4 mg tablet 2 mg PO Q8 PRN muscle spasticity 12/13/24 02/25/25 History warfarin 2 mg tablet 2 mg PO SUMOWEFRSA afib 12/13/24 02/22/25 History cinnamon bark 500 mg capsule 500 mg PO DAILY supplement 01/07/25 02/25/25 History (Cinnamon) coenzyme Q10 100 mg capsule (Co 100 mg PO DAILY supplement 01/07/25 02/25/25 History Q-10) cranberry 500 mg capsule 500 mg PO DAILY supplement 01/07/25 02/25/25 History diphenhydramine HCl 25 mg capsule 25 mg PO DAILY allergies 01/07/25 02/25/25 History (Aler-Cap) lactobacillus combination no.4 3 3,000 mmu cells PO DAILY supplement 01/07/25 02/25/25 History billion cell capsule (Probiotic) losartan 100 1 tab PO DAILY bp 01/07/25 02/25/25 History mg-hydrochlorothiazide 12.5 mg tablet aspirin 81 mg tablet,delayed 81 mg PO DAILY HEART HEALTH #30 01/23/25 02/22/25 Rx release tabs amlodipine 10 mg tablet 10 mg PO DAILY bp 02/12/25 02/25/25 History ferrous sulfate 325 mg (65 mg 325 mg PO QHS supplement 02/12/25 02/25/25 History iron) tablet (FeroSul) warfarin 1 mg tablet 1 mg PO TUTH AFIB 02/12/25 02/22/25 History Allergy/AdvReac Type Severity Reaction Status Date / Time benazepril (From Lotensin) Allergy Mild DOESNT Verified 02/26/25 06:14 REMEMBER quinapril (From Accupril) Allergy Mild UNKNOWN Verified 02/26/25 06:14 Sulfa (Sulfonamide Allergy Mild Hives Verified 02/26/25 06:14 Antibiotics) verapamil (From Calan) Allergy Mild UNKNOWN Verified 02/26/25 06:14 Family History Mother Diabetes Father Diabetes CVA (cerebral vascular accident) Heart disease Hypertension Myocardial infarction CAD (coronary artery disease) Brother Myocardial infarction Hypertension Heart disease CAD (coronary artery disease) Sister NAFLD (nonalcoholic fatty liver disease) Other Asthma COPD (chronic obstructive pulmonary disease) Surgical History Hx of right cataract extraction Hx of left cataract extraction Hx of cardiac catheterization History of esophagogastroduodenoscopy (EGD) (10/08/24) Hx of amputation History of transmetatarsal amputation of right foot History of femoropopliteal bypass S/P carotid endarterectomy Social History household members: spouse Smoking Status: Never smoker alcohol intake: never substance use type: does not use Review of Systems (Anesthesia) ROS Narrative System reviewed and no additional complaints, except as documented.
--- NOTE | 2025-02-26 07:37 | PCM.HP.STD ---
HPI - General General Date of Admission: 02/26/25 HPI Narrative JAROD PRITCHARD, is a 84 F who presents with asymptomatic right carotid stenosis. Previously had left carotid TCAR from which she has recovered well. [facility] Medical History Arthritis OAB (overactive bladder) Restless leg syndrome Hx of Clostridium difficile infection GERD (gastroesophageal reflux disease) Shortness of breath Chronic cough Leg cramping Edema History of carotid artery disease Wears hearing aid in both ears Diabetes Sleep apnea Hx of cardiovascular stress test Hx of echocardiogram Cardiology follow-up encounter (HFpEF) heart failure with preserved ejection fraction Pleural effusion, left TIA (transient ischemic attack) Wears glasses Depression Non-smoker Hypertension Gastric ulcer Aortic valve stenosis Atrial fibrillation Dilated cardiomyopathy Prolonged QT interval Elevated blood pressure reading without diagnosis of hypertension Factor V Leiden Anxiety Hypokalemia Acute hypoxemic respiratory failure CHF (congestive heart failure) Home Medications ?Medication ?Instructions ?Recorded ?Last Taken ?Type oxybutynin chloride 10 mg 10 mg PO DAILY bladder 09/23/23 02/25/25 History tablet,extended release 24 hr glimepiride 2 mg tablet 2 mg PO DAILY dm 12/31/23 01/21/25 History furosemide 40 mg tablet 40 mg PO DAILY water pill 30 days 03/19/24 02/25/25 Rx #60 tabs clopidogrel 75 mg tablet 75 mg PO DAILY a fib 30 days #30 04/05/24 02/22/25 Rx tabs pantoprazole 40 mg tablet,delayed 40 mg PO BID reflux 30 days #60 04/05/24 02/26/25 05:00 Rx release tabs simvastatin 80 mg tablet 80 mg PO QHS cholesterol 06/20/24 02/25/25 History magnesium chloride 64 mg 128 mg PO DAILY leg cramps 08/17/24 02/25/25 History (magnesium chloride) tablet,delayed release (Mag 64) potassium chloride 20 mEq 20 meq PO BID supplement 08/20/24 02/25/25 History tablet,extended release acetaminophen 500 mg capsule 500 mg PO QHS PRN pain 10/07/24 01/21/25 History fluticasone propionate 50 2 spray intranasal Q12H PRN 10/07/24 01/21/25 History mcg/actuation nasal congestion spray,suspension gabapentin 100 mg capsule 100 mg PO TID pain 10/07/24 02/25/25 History metoprolol succinate 25 mg 25 mg PO BID bp #60 tabs 10/10/24 02/26/25 05:00 Rx tablet,extended release 24 hr tizanidine 4 mg tablet 2 mg PO Q8 PRN muscle spasticity 12/13/24 02/25/25 History warfarin 2 mg tablet 2 mg PO SUMOWEFRSA afib 12/13/24 02/22/25 History cinnamon bark 500 mg capsule 500 mg PO DAILY supplement 01/07/25 02/25/25 History (Cinnamon) coenzyme Q10 100 mg capsule (Co 100 mg PO DAILY supplement 01/07/25 02/25/25 History Q-10) cranberry 500 mg capsule 500 mg PO DAILY supplement 01/07/25 02/25/25 History diphenhydramine HCl 25 mg capsule 25 mg PO DAILY allergies 01/07/25 02/25/25 History (Aler-Cap) lactobacillus combination no.4 3 3,000 mmu cells PO DAILY supplement 01/07/25 02/25/25 History billion cell capsule (Probiotic) losartan 100 1 tab PO DAILY bp 01/07/25 02/25/25 History mg-hydrochlorothiazide 12.5 mg tablet aspirin 81 mg tablet,delayed 81 mg PO DAILY HEART HEALTH #30 01/23/25 02/22/25 Rx release tabs amlodipine 10 mg tablet 10 mg PO DAILY bp 02/12/25 02/25/25 History ferrous sulfate 325 mg (65 mg 325 mg PO QHS supplement 02/12/25 02/25/25 History iron) tablet (FeroSul) warfarin 1 mg tablet 1 mg PO TUTH AFIB 02/12/25 02/22/25 History Allergy/AdvReac Type Severity Reaction Status Date / Time benazepril (From Lotensin) Allergy Mild DOESNT Verified 02/26/25 06:14 REMEMBER quinapril (From Accupril) Allergy Mild UNKNOWN Verified 02/26/25 06:14 Sulfa (Sulfonamide Allergy Mild Hives Verified 02/26/25 06:14 Antibiotics) verapamil (From Calan) Allergy Mild UNKNOWN Verified 02/26/25 06:14 Family History Mother Diabetes Father Diabetes CVA (cerebral vascular accident) Heart disease Hypertension Myocardial infarction CAD (coronary artery disease) Brother Myocardial infarction Hypertension Heart disease CAD (coronary artery disease) Sister NAFLD (nonalcoholic fatty liver disease) Other Asthma COPD (chronic obstructive pulmonary disease) Surgical History Hx of right cataract extraction Hx of left cataract extraction Hx of cardiac catheterization History of esophagogastroduodenoscopy (EGD) (10/08/24) Hx of amputation History of transmetatarsal amputation of right foot History of femoropopliteal bypass S/P carotid endarterectomy Social History household members: spouse Smoking Status: Never smoker alcohol intake: never substance use type: does not use ROS Constitutional Constitutional: Denies chills, fever(s), frequent falls, lethargy or weakness Eyes Eyes: Denies blind spots, change in vision or loss of vision ENT HEENT: Denies bleeding gums, hoarseness or sore throat Cardiovascular Cardiovascular: Denies abdominal pain, bluish discoloration of hand/feet, chest pain with activity, claudication, cold extremities, cyanosis, dyspnea on exertion, erythema on extremities, irregular heart rhythm, leg edema, leg ulcers, numbness in extremities or weakness in extremities Respiratory/Chest Respiratory/Chest: Denies cough, excessive phlegm production, shortness of breath at rest, shortness of breath with exertion or wheezing Gastrointestinal Gastrointestinal: Denies anorexia, change in stool character, constipation, diarrhea, melena or rectal bleeding Genitourinary Genitourinary: Denies dysuria or hematuria Musculoskeletal Musculoskeletal: Denies abnormal gait Integumentary Integumentary: Reports other Details: ; Denies erythema, non-healing lesions or wounds Neurologic Neurologic: Denies abnormal speech, focal weakness, headache(s), loss of vision, numbness, paresthesias or sensory deficit Hematologic/Lymphatic Hematologic/Lymphatic: Denies easy bleeding, easy bruising or lymphadenopathy Vital Signs Vital Signs Vital Signs: 02/26/25 06:18 02/26/25 06:18 02/26/25 06:56 Temperature 98.2 F 98.2 F Temperature Source Temporal Pulse Rate 57 L 57 L Respiratory Rate 16 16 Respiratory Pattern Normal Blood Pressure 122/65 H 122/65 H Blood Pressure Mean 84 Blood Pressure Source Monitor Blood Pressure Position Semi-Fowlers Blood Pressure Location Right Arm Pulse Ox 98 98 Oxygen Delivery Method Room Air Room Air Weight Weight: 151 lb 10.848 oz Body Mass Index (BMI) 26.9 Physical Exam Const alert, oriented x3, no apparent distress and healthy appearing General Appearance: cooperative; Negative for combative or lethargic Orientation / Consciousness: awake Exam Limitations: no limitations HEENT Head and Scalp: normocephalic and atraumatic Eyes EOMs intact bilaterally General Eye: normal appearance of both eyes Neck full ROM General: trachea midline Resp normal respiratory effort and no use of accessory muscles Effort and Inspection: Negative for labored, stridor or audible wheezes Cardio regular rate and regular rhythm Peripheral Pulses: brachial pulses present and radial pulses present Back/Spine Cervical Spine: cervical ROM normal Extremity full ROM, normal capillary refill and no clubbing, cyanosis or edema Skin no rashes or lesions noted and no wounds Neuro oriented x3, CN's II-XII intact bilaterally, no focal motor deficits and no sensory deficits noted Psych thought process normal, cooperative, affect normal, speech normal and activity/motor behavior normal Results Lab / Micro Data 02/20/25 09:33 02/20/25 09:33 Labs: Laboratory Results - last 24 hr 02/26/25 06:04: POC Glucose 201 H Assessment & Plan Assessment/Plan (1) Stenosis of right carotid artery: PLAN: -right TCAR
[2025-02-26] MEDS: Lidocaine 1% (5 ml sdv) 5 ML Vial 4 ML IV (07:52)
[2025-02-26] MEDS: Cefazolin 1 GM/5 ML Vial 2 GM IV (07:55)
[2025-02-26] MEDS: fentaNYL 100 MCG/2 ML Ampul IV (08:29)
[2025-02-26] MEDS: Heparin Injection (Vial) 5,000 UNIT/ML VIAL 7000 UNIT IV (08:35)
[2025-02-26] MEDS: Lactated Ringers 2,000 ML 2000 ML IV (09:08)
--- NOTE | 2025-02-26 10:16 | POSTOP.ANE_ITS ---
Anesthesia: Postop Eval I
--- NOTE | 2025-02-26 10:16 | PCM.POST.ANE ---
Anesthesia: Postop Eval I Current Vital Signs Temperature: 97.0 F Pulse Rate: 71 Blood Pressure: 118/40 Respiratory Rate: 20 Pulse Ox: 95 Oxygen Delivery Method: Room Air Assessment Airway patent: Yes Spontaneous unlabored respirations: Yes Mental status: Awake and Calm nausea: No Vomiting: No Anesthesia Complication: No Fluid Hydration Crystalloid volume administer (ml): 1,700 Total IV fluid infused: 1,700 Progress Note Anesthesia document: Postop Eval 1 completed: Yes
[2025-02-26] MEDS: Magnesium Chloride 64 MG Delay Rel.Tablet 128 MG PO (12:37)
[2025-02-26] MEDS: Potassium Chloride Oral Tablet 20 MEQ PO ×2 (12:38→21:10)
[2025-02-26 13:55] LABS: ACT Activated Clotting Time 250 sec (74-137)
[2025-02-26 13:55] LABS: ACT Activated Clotting Time 301 sec (74-137)
--- NOTE | 2025-02-26 15:05 | POSTOPAN2_ITS ---
Anesthesia Postop Eval I Sum
--- NOTE | 2025-02-26 15:05 | PCM.POSTANE2 ---
Anesthesia Postop Eval I Sum Postop Eval Completion status Anesthesia document: Postop Eval 1 completed: Yes Anesthesia Postop Eval I Summary Anesthesia Postop Eval I Summary: Anesthesia Postop Eval I: Assessment Summary Airway patent Yes 02/26/25 10:17 [email or web address] Spontaneous unlabored Yes 02/26/25 10:17 [email or web address] respirations Mental status Awake,Calm 02/26/25 10:17 [email or web address] nausea No 02/26/25 10:17 [email or web address] Vomiting No 02/26/25 10:17 [email or web address] Anesthesia Postop Eval I: Fluid Summary Crystalloid volume administer 1,700 02/26/25 10:17 [email or web address] (ml) Colloids volume administered ( ml) Blood Product volume administered (ml) Total IV fluid infused 1,700 02/26/25 10:17 [email or web address] Anesthesia Postop Eval I: Summary Notes Anesthesia Complication No 02/26/25 10:17 [email or web address] Anesthesia Complication Comment: Post-operative progress note Anesthesia: Postop Eval II Evaluation Mental status: Awake and Calm Pain Level: 1 nausea: No Vomiting: No Complications Anesthesia Complication: No
--- NOTE | 2025-02-26 15:09 | OP.PCM_ITS ---
Operative Report (Standard)
--- NOTE | 2025-02-26 15:09 | PCM.OPRPT ---
Operative Report (Standard) Operative Information Date of Procedure: 02/26/25 Pre-Operative Diagnosis: Right carotid stenosis, asymptomatic Post-Operative Diagnosis: Same Surgery/Procedure Performed: Right carotid artery stent, transcarotid logistics manager: Yes Tractor Mechanic Apprentice: Sonja Bello Tasks completed by research program assistant: Opening, Closing, Opening & closing and Retracting Type of Anesthesia: General RN Documented Start/Stop Times: Operation Date: 02/26/25 07:30 Case Time Into Pre-Op 02/26/25 05:45 Out of Pre-Op 02/26/25 07:07 Into Recovery 02/26/25 10:11 Out of Recovery 02/26/25 12:09 Procedure Start Time: 08:30 Procedure Stop Time: 09:30 Select all DRAINS/GRAFTS/IMPLANTS that apply: Implanted device Implanted device details: [place] [employer] en route tapered 9 to 7 x 40 stent Estimated Blood Loss: 8 Specimen collected: No Description of surgery: HPI: Patient is an 84-year-old female with recurrent severe asymptomatic right carotid artery stenosis. Given her history of prior endarterectomy she is felt to be most appropriate for stenting so is taken now for transcarotid artery stenting. Description of procedure: Upon obtaining informed consent and verification correct patient procedure and site the patient was taken to the [facility] where she was placed under general anesthesia. She was then positioned prepped and draped in usual sterile fashion a time was performed. Oblique incision was made at the the anterior border the sternocleidomastoid extending down to the clavicle. Bovie was used to dissect down to the subcutaneous tissue to the level of the platysma which was then divided and self-retaining retractor put in position. Further dissection was carried down to the sternocleidomastoid which was split between the sternal clavicular heads and self-retaining retractors move deeper in the wound. Once the jugular vein was visualized sharp dissection was used dissect free the vein along its anterior border allowing it to be retracted posterior laterally exposing the carotid artery. Sharp dissection was used to dissect free the vessel circumferentially with care taken to identify and protect the vagus nerve. A right angle was used to place a vessel loop and the patient was then heparinized with subsequent heparin dosing based on ACT results. A 5-0 Prolene pursestring suture was placed at the intended access site and attention turned to the venous access. Under ultrasound guidance the right common femoral vein was accessed with a micropuncture needle wire. This was then exchanged for a micropuncture sheath through which a J-wire was advanced to puncture sheath exchanged for the venous return sheath. Next a micropuncture needle and wire were used to access the common carotid artery in antegrade fashion at the pursestring suture location. This then exchanged for a micropuncture sheath through which hand-injection carotid angiogram was performed revealing satisfactory positioning with no extravasation or dissection. This image was also used to roxann the carotid bifurcation and a J-wire advanced through the micropuncture sheath stopping short of the lesion. The micropuncture sheath was exchanged for the [place] flow reversal arterial sheath which was advanced without resistance. The flow reversal tubing was then attached and adequate flow reversal confirmed. The common carotid artery was then occluded with a vessel loop and continued flow reversal again confirmed by flushing the tubing. Next the 014 wire was utilized to navigate into the internal carotid artery traversing the lesion advancing into the distal cervical internal carotid artery. A 5 mm x [address] medical angioplasty balloon was then advanced in the position centered on the lesion and inflated to nominal and then deflated and withdrawn. The tapered 9 to 7 x 40 en route stent was then advanced and positioned and deployed centered on the stenosis with satisfactory coverage into the proximal and distal normal-appearing vessel. After 2 minutes of flow reversal completion angiography was performed revealing satisfactory stent positioning with no extravasation or dissection and no plaque prolapse. Wires were then withdrawn and the carotid vessel loop released allowing antegrade flow in an additional 1 minute of flow reversal. The flow reversal tubing was then detached and blood flow returned via the venous access sheath. The venous access sheath was then withdrawn with manual pressure held for 10 minutes until hemostasis was achieved. The carotid sheath was then withdrawn and the pursestring suture secured. Heparin was reversed with protamine and the incision inspected for hemostasis. Surgicel powder topical hemostatic was applied and [address] STEPHANIE placed via separate stab incision. The incision was then closed with 3-0 Vicryl followed by 4-0 Monocryl and Dermabond for the skin. The patient was then awake from anesthesia moving all extremities to command with cranial nerves intact. She was then taken to the recovery room with anticipate admission to the intensive care unit for hemodynamic and neurologic monitoring. Surgical Findings: Moving all extremities to command, cranial nerves intact Complications Complications: No
--- NOTE | 2025-02-26 16:01 | CHAPLAIN ---
Type of Pastoral Visit ___ Initial Visit ___ Follow-up Visit ___ On-call Visit ___ General Patient Visit ___ Spiritual Assessment ___ Family Conference ___ Bereavement ___ Rapid Response ___ Code Blue ___ Other (describe below) Pastoral Care Referral From ___ Patient ___ Family ___ Nurse ___ Physician ___ Gang Saw Operator ___ Motor Man ___ Other (describe below) Sacrament/Intervention ___ Active listening ___ Anointing ___ Mandaeism ___ Bereavement ___ Communion ___ Emmy exploration ___ ___ Life review ___ Prayer ___ Reconciliation ___ Sacrament of Sick ___ Supportive presence ___ Wedding ___ Other (describe below) Pastoral Comments patient had just arrived to her room at first attempt; pt was sleeping on the second attempt to visit
[2025-02-26] MEDS: 0.9% Normal Saline (250mL Bag) 250 ML 15 ML IV (16:14)
[2025-02-26] MEDS: Cefazolin 1 GM/50 ML BAG IV ×2 (16:14→23:33)
--- NOTE | 2025-02-26 16:19 | CHAPLAIN ---
Type of Pastoral Visit _x__ Initial Visit ___ Follow-up Visit ___ On-call Visit ___ General Patient Visit ___ Spiritual Assessment ___ Family Conference ___ Bereavement ___ Rapid Response ___ Code Blue ___ Other (describe below) Pastoral Care Referral From _x__ Patient ___ Family ___ Nurse ___ Physician ___ Tobacco Classer ___ Transportation Agent ___ Other (describe below) Sacrament/Intervention _x__ Active listening ___ Anointing ___ Rastafarian ___ Bereavement ___ Communion ___ Emmy exploration ___ _x__ Life review _x__ Prayer ___ Reconciliation ___ Sacrament of Sick _x__ Supportive presence ___ Wedding ___ Other (describe below) Pastoral Comments patient is alert and talkative at this third attempt; pt is more optimistic and gives good feedback on care and medical attention; pt still has concerns for her 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 and requests prayers for that situation; pt is welcoming of spiritual care and expresses gratitude
[2025-02-26] MEDS: 0.9% Saline Lock 10 ML Syringe IV (20:18)
[2025-02-26] MEDS: Metoprolol(XL)Succ 25 MG Tablet PO (21:10)
[2025-02-27] VITALS (12 sets, daily range): BP systolic 120–156; BP diastolic 53–79; PULSE 70–90; RESP 12–16; TEMP 37.1–37.3; O2SAT 94–97; BMI 27.3
[2025-02-27 03:42] LABS: Hematocrit 28.4 % (37-47); Hemoglobin 9.7 g/dL (12.0-15.0); Immature Granulocytes Count 0.050 X10^3/uL (0.0-0.0); Mean Corp Hgb Conc 34.2 g/dL (32-36); Mean Corpuscular Volume 93.7 fL (81-99); Mean Platelet Vol. 10.5 fl (6.2-12.0); NRBC Flagged by Analyzer 0 % (0-5); Platelet Count 191 K/mm3 (150-450); RBC Distribution Width CV 14.9 % (11.6-14.6); RBC Distribution Width SD 51.3 fl (35.1-43.9); Red Blood Count 3.03 M/mm3 (4.2-5.4); White Blood Count 7.7 K/mm3 (4.4-11.0)
[2025-02-27] MEDS: Lactobacillis Acidophilus 1 CAP PO (07:54)
[2025-02-27] MEDS: Aspirin E.C. 81 MG Tablet PO (07:54)
[2025-02-27] MEDS: Magnesium Chloride 64 MG Delay Rel.Tablet 128 MG PO (07:54)
[2025-02-27] MEDS: Metoprolol(XL)Succ 25 MG Tablet PO (07:55)
[2025-02-27] MEDS: Potassium Chloride Oral Tablet 20 MEQ PO (07:55)
--- NOTE | 2025-02-27 09:24 | PCM.PN.SRG ---
Subjective Subjective I saw Eri this morning resting comfortably in the bedside chair. She was finishing breakfast which she tolerated well. She was in good spirits with no complaints. She denied any headache, vision changes, weakness, new numbness/paresthesias. She has voided without difficulty and done well ambulating. Objective Data Objective Data Vital Signs: Vital Signs Temp Pulse Resp BP Pulse Ox O2 Del Method 98.8 F 80 16 146/72 H 95 Room Air 02/27/25 08:00 02/27/25 09:00 02/27/25 09:00 02/27/25 09:00 02/27/25 09:00 02/27/25 09:00 Oxygen Delivery Method Room Air Weight: 154 lb 8.705 oz Body Mass Index (BMI) 27.3 Intake & Output: Intake and Output for Last 24 Hours 02/25/25 02/26/25 02/27/25 23:59 23:59 23:59 Intake Total 2291 / 2291 581.5 / 581.5 Output Total 1640 / 1640 975 / 975 Balance 651 / 651 -393.5 / -393.5 Lab / Micro Data 02/27/25 03:35 02/20/25 09:33 Labs: Laboratory Results - last 24 hr 02/26/25 07:44: Activated Clotting Time 301 H 02/26/25 08:18: Activated Clotting Time 250 H 02/26/25 13:15: POC Glucose 277 H 02/26/25 16:06: POC Glucose 288 H 02/26/25 21:08: POC Glucose 262 H 02/27/25 03:35: WBC 7.7, RBC 3.03 L, Hgb 9.7 L, Hct 28.4 L, MCV 93.7, MCH 32.0, MCHC 34.2, RDW Std Deviation 51.3 H, RDW Coeff of Kate 14.9 H, Plt Count 191, MPV 10.5, Immature Gran % (Auto) 0.700, Neut % (Auto) 81.4 H, Lymph % (Auto) 11.2 L, [place] % (Auto) 6.6, Eos % (Auto) 0.0, Baso % (Auto) 0.1, Absolute Neuts (auto) 6.3, Absolute Lymphs (auto) 0.86, Nucleated RBC % 0 02/27/25 07:46: POC Glucose 177 H Physical Exam Const alert, oriented x3 and no apparent distress General Appearance: cooperative and comfortable HEENT normocephalic, head/scalp atraumatic, hearing grossly normal bilaterally, external ears normal and external nose normal Eyes General Eye: normal appearance of both eyes Neck Neck Narrative: R neck incision site with skin glue intact, no significant swelling, ecchymosis, erythema. No drainage/bleeding. Resp normal respiratory effort, normal air movement, no retractions and no use of accessory muscles Effort and Inspection: able to speak in complete sentences; Negative for labored, grunting or stridor Cardio regular rate Extremity Extremity Narrative: R groin puncture site with dry dressing C/D/I; no swelling, soft and nontender to palpation. Neuro oriented x3, CN's II-XII intact bilaterally, moves all extremities and no focal motor deficits Speech: speech normal Psych mental status grossly normal Appearance: grossly normal Attitude: calm and engaged Activity / Motor Behavior: appropriate eye contact Speech: normal speech Assessment & Plan Assessment/Plan (1) Stenosis of right carotid artery: PLAN: Plan She is s/p TCAR. She required one dose of PRN labetalol, restarted her home antihypertensives this morning with good response. She has been hemodynamically and neurologically stable. Minimal STEPHANIE drain output; removed this without issue and she tolerated well. Neck incision site satisfactory in appearance. R groin puncture site without hematoma or bleeding. Plan for discharge home this morning. Charges/Coding Procedures Integumentary [id number]: [id number] Global Visit
--- NOTE | 2025-02-27 09:24 | PCM.DC.SUM ---
Providers Date of Admission: 02/26/25 Primary Care Physician: Dr. Kendra Lucio MD Reason For Visit: Carotidstent in [facility] with OR Staff, Shawn ESQUIVEL Diagnosis Discharge Diagnosis (1) Stenosis of right carotid artery: Status: Acute Code(s): I65.21 - Occlusion and stenosis of right carotid artery Medications at Discharge Home Medications oxybutynin chloride 10 mg tablet,extended release 24 hr 10 mg PO DAILY bladder 09/23/23 glimepiride 2 mg tablet 2 mg PO DAILY dm 12/31/23 furosemide 40 mg tablet 40 mg PO DAILY water pill 30 days #60 tabs 03/19/24 clopidogrel 75 mg tablet 75 mg PO DAILY a fib 30 days #30 tabs 04/05/24 pantoprazole 40 mg tablet,delayed release 40 mg PO BID reflux 30 days #60 tabs 04/05/24 simvastatin 80 mg tablet 80 mg PO QHS cholesterol 06/20/24 magnesium chloride 64 mg (magnesium chloride) tablet,delayed release (Mag 64) 128 mg PO DAILY leg cramps 08/17/24 potassium chloride 20 mEq tablet,extended release 20 meq PO BID supplement 08/20/24 acetaminophen 500 mg capsule 500 mg PO QHS PRN pain 10/07/24 fluticasone propionate 50 mcg/actuation nasal spray,suspension 2 spray intranasal Q12H PRN congestion 10/07/24 gabapentin 100 mg capsule 100 mg PO TID pain 10/07/24 metoprolol succinate 25 mg tablet,extended release 24 hr 25 mg PO BID bp #60 tabs 10/10/24 tizanidine 4 mg tablet 2 mg PO Q8 PRN muscle spasticity 12/13/24 warfarin 2 mg tablet 2 mg PO SUMOWEFRSA afib 12/13/24 cinnamon bark 500 mg capsule (Cinnamon) 500 mg PO DAILY supplement 01/07/25 coenzyme Q10 100 mg capsule (Co Q-10) 100 mg PO DAILY supplement 01/07/25 cranberry 500 mg capsule 500 mg PO DAILY supplement 01/07/25 diphenhydramine HCl 25 mg capsule (Aler-Cap) 25 mg PO DAILY allergies 01/07/25 lactobacillus combination no.4 3 billion cell capsule (Probiotic) 3,000 mmu cells PO DAILY supplement 01/07/25 losartan 100 mg-hydrochlorothiazide 12.5 mg tablet 1 tab PO DAILY bp 01/07/25 aspirin 81 mg tablet,delayed release 81 mg PO DAILY HEART HEALTH #30 tabs 01/23/25 amlodipine 10 mg tablet 10 mg PO DAILY bp 02/12/25 ferrous sulfate 325 mg (65 mg iron) tablet (FeroSul) 325 mg PO QHS supplement 02/12/25 warfarin 1 mg tablet 1 mg PO TUTH AFIB 02/12/25 oxycodone 5 mg tablet 5 mg PO Q8H PRN PRN Pain Score 4-10 3 days #9 tabs 02/27/25 Hospital Course Summary of Care Provided Hospital Course: Eri Braun is an 84 y/o female who underwent planned R TCAR 02/26/25. The procedure was without complication and she tolerated it well. Postoperatively, she was routinely admitted to the ICU for ongoing hemodynamic and neurologic monitoring. She has remained hemodynamically and neurologically stable throughout her admission. On POD#1 she had minimal output so STEPHANIE drain was removed without issue. She is tolerating normal diet, voiding normally, ambulating well, and has minimal pain. She is appropriate for discharge home today with planned follow-up in the office 03/13/25. Physical Exam Const alert, oriented x3 and no apparent distress General Appearance: cooperative and comfortable HEENT normocephalic, head/scalp atraumatic, hearing grossly normal bilaterally, external ears normal and external nose normal Eyes General Eye: normal appearance of both eyes Neck Neck Narrative: R neck incision site with skin glue intact, no significant swelling, ecchymosis, erythema. No drainage/bleeding. Resp normal respiratory effort, normal air movement, no retractions and no use of accessory muscles Effort and Inspection: able to speak in complete sentences; Negative for labored, grunting or stridor Cardio regular rate Extremity Extremity Narrative: R groin puncture site with dry dressing C/D/I; no swelling, soft and nontender to palpation. Neuro oriented x3, CN's II-XII intact bilaterally, moves all extremities and no focal motor deficits Speech: speech normal Psych mental status grossly normal Appearance: grossly normal Attitude: calm and engaged Activity / Motor Behavior: appropriate eye contact Speech: normal speech Weight / BMI Weight Weight: 154 lb 8.705 oz Body Mass Index (BMI) 27.3 ABG / Lab / Microbiology Data 02/27/25 03:35 02/20/25 09:33 Laboratory: Laboratory Results - last 24 hr 02/26/25 07:44: Activated Clotting Time 301 H 02/26/25 08:18: Activated Clotting Time 250 H 02/26/25 13:15: POC Glucose 277 H 02/26/25 16:06: POC Glucose 288 H 02/26/25 21:08: POC Glucose 262 H 02/27/25 03:35: WBC 7.7, RBC 3.03 L, Hgb 9.7 L, Hct 28.4 L, MCV 93.7, MCH 32.0, MCHC 34.2, RDW Std Deviation 51.3 H, RDW Coeff of Kate 14.9 H, Plt Count 191, MPV 10.5, Immature Gran % (Auto) 0.700, Neut % (Auto) 81.4 H, Lymph % (Auto) 11.2 L, [place] % (Auto) 6.6, Eos % (Auto) 0.0, Baso % (Auto) 0.1, Absolute Neuts (auto) 6.3, Absolute Lymphs (auto) 0.86, Nucleated RBC % 0 02/27/25 07:46: POC Glucose 177 H D/C Instructions May shower in (days): 1 Weight Bearing Status: Weight bearing as tolerated Lifting Restricted to (Lbs): 20 Lifting Restrictions: Do not lift >20 pounds for 3 weeks Call your doctor if your incision/area has: Sudden Increased Bleeding, Increased Pain/ Swelling and Foul Smelling Discharge Call your doctor if you observe: Fever of 101 or Higher and Uncontrolled pain DC O2, CPAP, BIPAP Needs Home O2 Discharge instructions: No Additional Instructions: INCISION CARE: You have a small bandage on your neck over the site from which the surgical drain was removed and over the R groin puncture site. You may remove both bandages tomorrow. As long as there is no residual drainage, you may leave these sites open to air. If you do notice some continued drainage, you may re-cover with a Band-Aid. Your neck incision site is covered with skin glue which will continue to protect it. The skin glue will peel/flake off on its own over the next few weeks. Please do not pick at it. You may shower tomorrow. It is okay for soap and water to rinse over the incision site, pat to dry. Do not submerge the incision site in water such as to take a bath or go swimming etc. for 3 weeks. MEDICATION INSTRUCTIONS Continue to take Aspirin 81mg daily and Clopidogrel (Plavix) 75mg daily. You have been prescribed oxycodone 5mg tablet to be taken by mouth every 8 hours as needed for pain. You may take this in addition to Tylenol as needed. You should not drive or operate machinery while taking this medication. Do not take this medication in combination with any other prescription pain medications. Call the office at [phone] with any questions about your medications ACTIVITY INSTRUCTIONS Do not lift greater than 20 pounds for 3 weeks. Otherwise, please continue with activity as tolerated. Do not drive until you can turn your head well enough to safely check your blind spots. FOLLOW-UP INSTRUCTIONS You are scheduled for follow-up in the office on 03/13/2025. If you need to change this appointment or have any other questions/concerns, please call the office at [phone]. Please Follow Up With: Laura Crowell PA When: 03/13/25 Meaningful Use Info Meaningful Use Meaningful Use Diagnoses (Choose all that apply): None applicable Discharge Plan Admission Admit Date/Time: 02/26/25 09:38 Attending Provider: Shana Rojas Primary Care Provider: Kendra Lucio Instructions Additional Instructions / Restrictions: INCISION CARE: You have a small bandage on your neck over the site from which the surgical drain was removed and over the R groin puncture site. You may remove both bandages tomorrow. As long as there is no residual drainage, you may leave these sites open to air. If you do notice some continued drainage, you may re-cover with a Band-Aid. Your neck incision site is covered with skin glue which will continue to protect it. The skin glue will peel/flake off on its own over the next few weeks. Please do not pick at it. You may shower tomorrow. It is okay for soap and water to rinse over the incision site, pat to dry. Do not submerge the incision site in water such as to take a bath or go swimming etc. for 3 weeks. MEDICATION INSTRUCTIONS Continue to take Aspirin 81mg daily and Clopidogrel (Plavix) 75mg daily. You have been prescribed oxycodone 5mg tablet to be taken by mouth every 8 hours as needed for pain. You may take this in addition to Tylenol as needed. You should not drive or operate machinery while taking this medication. Do not take this medication in combination with any other prescription pain medications. Call the office at [phone] with any questions about your medications ACTIVITY INSTRUCTIONS Do not lift greater than 20 pounds for 3 weeks. Otherwise, please continue with activity as tolerated. Do not drive until you can turn your head well enough to safely check your blind spots. FOLLOW-UP INSTRUCTIONS You are scheduled for follow-up in the office on 03/13/2025. If you need to change this appointment or have any other questions/concerns, please call the office at [phone]. Discharge Orders/Prescriptions Prescriptions: New oxycodone 5 mg Tablet 5 mg PO Q8H PRN PRN (Reason: Pain Score 4-10) 3 Days Qty: 9 0RF Continued simvastatin 80 mg tablet 80 mg PO QHS warfarin 2 mg tablet 2 mg PO Rx Instructions: Take 2 mg Tuesday and and Tuesday, 1 mg all other days; Managed by [facility] tizanidine 4 mg tablet 2 mg PO Q8 PRN (Reason: muscle spasticity) clopidogrel 75 mg Tablet 75 mg PO DAILY 30 Days Qty: 30 0RF pantoprazole 40 mg Tablet,Delayed Release (Dr/Ec) 40 mg PO BID 30 Days Qty: 60 0RF fluticasone propionate 50 mcg/actuation spray,suspension 2 spray INTRANASAL Q12H PRN (Reason: congestion) acetaminophen 500 mg capsule 500 mg PO QHS PRN (Reason: pain) gabapentin 100 mg capsule 100 mg PO TID metoprolol succinate 25 mg Tablet Extended Release 24 Hr 25 mg PO BID Qty: 60 0RF oxybutynin chloride 10 mg tablet extended release 24hr 10 mg PO DAILY glimepiride 2 mg tablet 2 mg PO DAILY furosemide 40 mg Tablet 40 mg PO DAILY 30 Days Qty: 60 2RF magnesium chloride [Mag 64] 64 mg tablet,delayed release (DR/EC) 128 mg PO DAILY losartan-hydrochlorothiazide 100-12.5 mg tablet 1 tab PO DAILY Probiotic 3 billion cell capsule 3,000 mmu cells PO DAILY Rx Instructions: administer with a meal cranberry 500 mg capsule 500 mg PO DAILY Rx Instructions: administer with a meal coenzyme Q10 [Co Q-10] 100 mg capsule 100 mg PO DAILY cinnamon bark [Cinnamon] 500 mg capsule 500 mg PO DAILY diphenhydramine HCl [Aler-Cap] 25 mg capsule 25 mg PO DAILY aspirin 81 mg tablet,delayed release (DR/EC) 81 mg PO DAILY Qty: 30 0RF warfarin 1 mg tablet 1 mg PO TUTH ferrous sulfate [FeroSul] 325 mg (65 mg iron) Tablet 325 mg PO QHS Patient Comments: pt states she takes at bedtime amlodipine 10 mg tablet 10 mg PO DAILY Rx Instructions: 10 mg orally DAILY: this is a dose increase, pt was using up her 5mg tablets to = 10 mg. Pt is out of med and is in store now. PLEASE FILL, thank you!!; potassium chloride 20 mEq tablet extended release 20 meq PO BID Referrals / Follow Up: Kendra Lucio MD [Primary Care Provider, Internal Medicine] Disposition Disposition (needs filled in before D/C Order can be placed): Home, Self Care
--- NOTE | 2025-02-27 09:46 | CASEMGMT ---
XOCHILT HAND Assessment Face to Face with patient for initial transition planning/care coordination assessment. XOCHILT HAND introduced self and role at [facility], pt voices understanding. Pt is A&Ox4 and is resting comfortably in the chair and is calm. Pt's at the bedside. Care providers, pharmacy, and demographics verified. Admitting dx: Stenosis of right carotid artery LACE Strata: 2 PCP: Kendra Lucio Specialists: Friend (GI), Crystal (Vascular), Evangelist (Podiatry) Preferred Pharmacy: [facility] Insurance: [employer] [facility] Prescription Benefit: Yes LNOK: Calderon (H), Zahra (Daughter) Living Arrangements: Pt lives with her in a single story home with a basement and 2 steps to enter ADLs/IADLs: Pt reports that she is indep Transportation: Self, . DME: home oxygen through [employer]. Pt states that she only wears 2L @ HS only. E-Mail sent to [employer] to verify pt's current orders. Pt states that she has a concentrator, x2 portable tanks, and a pulse ox. Pt also reports that she has a BGM with sufficient supplies. Pt states that she religiously checks her BS and VS at home. Pt reports that she has a daily log for these. Pt states that she also has a FWW, WC, Shower chair, and grab bars. HHC/SNF:History at [facility] TCU and [facility] HHC Pt?s goal: Home Plan: Home with pt's today. Pt is currently 96% on RA. Vascular has placed an order for DC. At this time, the pt denies the need for SNF, HHC, or OP Tx. Pt states that she feels safe returning home with her once she is medically ready. Pt states that her daughter works M-F and that the pt and her watch their 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 (Ages 11 and 7) every day throughout the week. Pt denies further need at this time. Di Sauceda RN, CM
--- NOTE | 2025-02-27 10:38 | PHA.DC_ITS ---
Pharmacy DC Med Reconciliation
--- NOTE | 2025-02-27 10:38 | PHA.DC.MR.R ---
[facility]arm[facility]con[facility] has performed discharge medication reconciliation for this patient. The patient's discharge medication list was reviewed for discrepancies and discrepancies were resolved. Medications at Discharge Home Medications oxybutynin chloride 10 mg tablet,extended release 24 hr 10 mg PO DAILY bladder 09/23/23 glimepiride 2 mg tablet 2 mg PO DAILY dm 12/31/23 furosemide 40 mg tablet 40 mg PO DAILY water pill 30 days #60 tabs 03/19/24 clopidogrel 75 mg tablet 75 mg PO DAILY a fib 30 days #30 tabs 04/05/24 pantoprazole 40 mg tablet,delayed release 40 mg PO BID reflux 30 days #60 tabs 04/05/24 simvastatin 80 mg tablet 80 mg PO QHS cholesterol 06/20/24 magnesium chloride 64 mg (magnesium chloride) tablet,delayed release (Mag 64) 128 mg PO DAILY leg cramps 08/17/24 potassium chloride 20 mEq tablet,extended release 20 meq PO BID supplement 08/20/24 acetaminophen 500 mg capsule 500 mg PO QHS PRN pain 10/07/24 fluticasone propionate 50 mcg/actuation nasal spray,suspension 2 spray intranasal Q12H PRN congestion 10/07/24 gabapentin 100 mg capsule 100 mg PO TID pain 10/07/24 metoprolol succinate 25 mg tablet,extended release 24 hr 25 mg PO BID bp #60 tabs 10/10/24 tizanidine 4 mg tablet 2 mg PO Q8 PRN muscle spasticity 12/13/24 warfarin 2 mg tablet 2 mg PO SUMOWEFRSA afib 12/13/24 cinnamon bark 500 mg capsule (Cinnamon) 500 mg PO DAILY supplement 01/07/25 coenzyme Q10 100 mg capsule (Co Q-10) 100 mg PO DAILY supplement 01/07/25 cranberry 500 mg capsule 500 mg PO DAILY supplement 01/07/25 diphenhydramine HCl 25 mg capsule (Aler-Cap) 25 mg PO DAILY allergies 01/07/25 lactobacillus combination no.4 3 billion cell capsule (Probiotic) 3,000 mmu cells PO DAILY supplement 01/07/25 losartan 100 mg-hydrochlorothiazide 12.5 mg tablet 1 tab PO DAILY bp 01/07/25 aspirin 81 mg tablet,delayed release 81 mg PO DAILY HEART HEALTH #30 tabs 01/23/25 amlodipine 10 mg tablet 10 mg PO DAILY bp 02/12/25 ferrous sulfate 325 mg (65 mg iron) tablet (FeroSul) 325 mg PO QHS supplement 02/12/25 warfarin 1 mg tablet 1 mg PO TUTH AFIB 02/12/25 oxycodone 5 mg tablet 5 mg PO Q8H PRN PRN Pain Score 4-10 3 days #9 tabs 02/27/25
[2025-03-02 06:28] LABS: INR Fingerstick 1.1
== END 2025-02-27 10:30 | disposition home or self-care (01) | DRG 35 ==
LOC: ICU 10:10 → ACINP 10:10
PROVIDERS: Anesthesiology; Admitting Provider Surgery Trauma Surgery; PCP Internal Medicine; Referring Provider Surgery Trauma Surgery; Visit Provider Surgery Trauma Surgery
PROC: 037H3DZ Dilation of Right Common Carotid Artery with Intraluminal Device, Percutaneous Approach (ICD-10-PCS; CPT 37236; principal; 2025-02-26 07:00)
DX: I65.21 Occlusion and stenosis of right carotid artery (principal); I50.32 Chronic diastolic (congestive) heart failure; E11.9 Type 2 diabetes mellitus without complications; I11.0 Hypertensive heart disease with heart failure; I48.91 Unspecified atrial fibrillation; Z79.01 Long term (current) use of anticoagulants; Z79.02 Long term (current) use of antithrombotics/antiplatelets; Z79.84 Long term (current) use of oral hypoglycemic drugs; Z79.899 Other long term (current) drug therapy
CPT/HCPCS: 36415; 36416; 37215; 76937; 80048; 82962; 85025; 85027; 85347; 85610; 94668; A4648; C1725; C1769; C1876; C1894; Q9967; A4216; J2405

== ENCOUNTER → 2025-03-08 | Outpatient (CLI) | payer MEDICARE, SELFPAY ==
--- NOTE | 2025-03-08 10:05 | ADUL_ITS ---
Reason For Study VL/US Art Duplex Unilat Lower Ext
--- NOTE | 2025-03-08 10:05 | ART_ITS ---
Reason For Study VL/Ankle Brachial Index
== END | disposition home or self-care (01) ==
PROVIDERS: PCP Internal Medicine; Referring Provider Physician Assistant; Visit Provider Physician Assistant
DX: Z48.812 Encounter for surgical aftercare following surgery on the circulatory system (principal)
CPT/HCPCS: 93922; 93926

== ENCOUNTER 2025-05-01 06:54 | Day surgery (SDC) | payer MEDICARE, SELFPAY ==
[2025-04-30 09:53] VITALS: BMI 26.9
--- OUTSIDE RECORDS SUMMARY | 2025-05-01 07:03 | XMS RPT_ITS | CCD ---
Author Organization [facility] Care Team Providers Care Bander Name Role Phone Kierra Santiago MD Primary Care Provider Kierra Santiago MD Primary Care Provider Bety RN, Nancy Sarah Unavailable Bety RN, Nancy Sarah Unavailable Colón SUPERVISOR LABORATORY ANIMAL FACILITY.STUDENT EDUCATION SPECIALIST, Anastasiia Unavailable Eric SUPERVISOR LABORATORY ANIMAL FACILITY.PURCHASING ADMINISTRATOR, Sheryl Unavailable Eric SUPERVISOR LABORATORY ANIMAL FACILITY.PURCHASING ADMINISTRATOR, Sheryl Belen Unavailable Eric SUPERVISOR LABORATORY ANIMAL FACILITY.PURCHASING ADMINISTRATOR, Sheryl Unavailable Dr. Kierra Santiago MD Primary [...] Dr. Robb Giron DO Other Provider [phone] Roly Herrera MD Attending Provider Dr. Shaan Rojas MD Attending Provider [phone] Crystal ERICKSON, Dr. Garduno Referring Provider Javier ERICKSON, Dr. Dunham Other Provider Socrates PA, Laura Referring Provider Ese Solano Attending Provider Ese Solano Referring Provider Roof MARKET RESEARCH INTERVIEWER-C, Dominick H Attending Provider Roof MARKET RESEARCH INTERVIEWER-C, Dominick H Referring Provider Luis ERICKSON, Dr. Jason Hilliard Other Provider Socrates SEGURA, Laura Attending Provider [phone] Eric SUPERVISOR LABORATORY ANIMAL FACILITY.PURCHASING ADMINISTRATOR, Sheryl Unavailable Khadijah ERICKSON, Dr. Kierra Solis Primary Care Provider Khadijah ERICKSON, Dr. Kierra Solis Referring Provider Socrates SEGURA, Laura Attending Provider [phone] Khadijah ERICKSON, Dr. Kierra Solis Primary Care Provider Khadijah ERICKSON, Dr. Kierra Solis Referring Provider Mack ZARATE, Dr. Zamudio Attending Provider Friend , Dr. Zamudio Other Provider Roof MARKET RESEARCH INTERVIEWER-C, Dominick H Other Provider Crystal ERICKSON, Dr. [...] Provider Javier ERICKSON, Dr. Dunham Attending Provider Dov ZARATE, Dr. Garduno Other Provider Telma ERICKSON, Dr. Jose Cabrales Attending Provider [facility].STUDENT EDUCATION SPECIALIST, Anastasiia Unavailable Khadijah ERICKSON, Dr. Kierra Solis Primary Care Provider Roof MARKET RESEARCH INTERVIEWER-C, Dominick H Attending Provider Khadijah ERICKSON, Dr. Kierra Solis Referring Provider Socrates SEGURA, Laura Attending Provider Socrates SEGURA, Laura Referring Provider Dov ZARATE, Dr. Garduno Referring Provider Khadijah ERICKSON, Dr. Kierra Solis Primary Care Provider Roof MARKET RESEARCH INTERVIEWER-C, Dominick Faria Attending Provider Roof MARKET RESEARCH INTERVIEWER-C, Dominick H Referring Provider Khadijah ERICKSON, Dr. Kierra Solis Primary Care Physician Evangelist JAVIER, Dr. Knight Attending Physician Telma ERICKSON, Dr. Jose Cabrales Attending Physician Caren ERICKSON, Dr. Jarvis Emergency Department Phys ician Javier ERICKSON, Dr. Dunham Nurse Practitioner Dr. Kelsie Muñoz MD Admitting Physician Toni ERICKOSN, Dr. Kelsie Palmer Nurse Practitioner Dr. Shaan Monae DO Attending Physician Dr. Kelsie Muñoz MD Attending Physician Dr. Roly Herrera MD Attending Physician Dr. Shaan Monae DO Nurse Practitioner Dr. Robb Giron DO Attending Physician Khadijah ERICKSON, Dr. Kierra Solis Referring Provider Crystal ERICKSON, Dr. Garduno Attending Physician [facility] Dominick YUN Attending Physician Crystal ERICKSON, Dr. Garduno Admitting Physician Crystal ERICKSON, Dr. Garduno Referring Provider Crystal ERICKSON, Dr. Garduno Nurse Practitioner Khadijah ERICKSON, Dr. Kierra Solis Primary Care Physician Laura Armendariz Attending Physician TALAMPAS, KIERRA D Primary Care Unavailable TALAMPAS, KIERRA D Primary Care Unavailable COLÓN, ANASTASIIA Attending Unavailable COLÓN, ANASTASIIA Referring Unavailable TALAMPAS, KIERRA D Referring Unavailable [...] COLÓN, ANASTASIIA Referring Unavailable TALAMPAS, KIERRA D Attending Unavailable TALAMPAS, [...] D Primary Care Unavailable TALAMPAS, KIERRA D Attending Unavailable TALAMPAS, KIERRA D Primary Care Unavailable ANASTASIIA COLÓN Referring Unavailable TALAMPAS, KIERRA D Primary Care Unavailable SLEIK, MARTHAALEIrma MELOUD Referring Unavailable SLEIK, MARTHAALEIrma MELOUD Attending Unavailable TALAMPAS, KIERRA D Primary Care Unavailable SELF Referring Unavailable TALAMPAS, KIERRA D Primary Care Unavailable DELGADO, MARY KAY D Referring Unavailable DELGADO, MARY KAY D Attending Unavailable Talampas, Kierra D Primary Care Unavailable Eugene Blanca Attending Unavailable Eugene Blanca Referring Unavailable Greenwood, Shaan Referring Unavailable Greenwood, Shaan Attending Unavailable Greenwood, Shaan Admitting Unavailable Talampas, Kierra D Primary Care Unavailable Talampas, Kierra D Primary Care Unavailable Friend, Robb Attending Unavailable Talampas, Kierra D Referring Unavailable Talampas, Kierra D Primary Care Unavailable Friend, Robb Attending Unavailable Talampas, Kierra D Referring Unavailable Roly Herrera Consulting Unavailable Friend, Robb Attending Unavailable Talampas, Kierra D Primary Care Unavailable Joeryneri, Shaan Referring Unavailable White, Kelsie L Admitting Unavailable White, Kelsie L Consulting Unavailable Jopperi, Shaan Consulting Unavailable Crowell, Laura Referring Unavailable Crowell, Laura Attending Unavailable Talampas, Kierra D Primary Care Unavailable Talampas, Kierra D Primary Care Unavailable Referred, Self Attending Unavailable Referred, Self Attending Unavailable Talampas, Kierra D Primary Care Unavailable Talampas, Kierra D Primary Care Unavailable Friend, Robb Attending Unavailable Luis, Jason Chi Admitting Unavailable Eugene Blanca Consulting Unavailable Luis, Jason Chi Referring Unavailable CrystalShaan Consulting Unavailable Luis, Jason Chi Consulting Unavailable Dominick Harrell H Attending Unavailable Talampas, Kierra D Primary Care Unavailable Roof, Dominick H Referring Unavailable Crowell, Laura Referring Unavailable Roof, Dominick H Consulting Unavailable Crowell, Laura Attending Unavailable Talampas, Kierra D Primary Care Unavailable Talampas, Kierra D Primary Care Unavailable Roof, Dominick H Referring Unavailable Roof, Dominick H Attending Unavailable Crowell, Laura Referring Unavailable Crowell, Laura Attending Unavailable Talampas, Kierra D Primary Care Unavailable Javier, Roly Consulting Unavailable Talampas, Kierra D Primary Care Unavailable Crystal, Shaan Referring Unavailable Crystal, Shaan Attending Unavailable Crowell, Laura Referring Unavailable Crowell, Laura Attending Unavailable Talampas, Kierra D Primary Care Unavailable AtanasovEse Referring Unavailable Talampas, Kierra D Primary Care Unavailable Atanasov, Ese Attending Unavailable Atanasov, Ese Attending Unavailable Talampas, Kierra D Referring Unavailable Talampas, Kierra D Primary Care Unavailable Talampas, Kierra D Primary Care Unavailable [facility], Dominick Attending Unavailable Talampas, Kierra D Referring Unavailable Crowell, Laura Attending Unavailable Joeryneri, Shaan Attending Unavailable Crowell, Laura Attending Unavailable Talampas, Kierra D Primary Care Unavailable Talampas, Kierra D Referring Unavailable Dominick Harrell Referring Unavailable RoofDominick Attending Unavailable Talampas, Kierra D Primary Care Unavailable Talampas, Kierra D Primary Care Unavailable Crystal, Shaan Attending Unavailable Greenwood, Shaan Referring Unavailable Crystal, Shaan Consulting Unavailable Crystal, Shaan Attending Unavailable Greenwood, Shaan Admitting Unavailable Talampas, Kierra D Primary Care Unavailable Friend, Robb Consulting Unavailable Talampas, Kierra D Referring Unavailable Talampas, Kierra D Primary Care Unavailable Friend, Robb Attending Unavailable Crystal, Shaan Referring Unavailable Greenwood, Shaan Consulting Unavailable Crystal, Shaan Attending Unavailable Greenwood, Shaan Admitting Unavailable Talampas, Kierra D Primary Care Unavailable Talampas, Kierra D Referring Unavailable Talampas, Kierra D Primary Care Unavailable Friend, Robb Consulting Unavailable Friend, Robb Attending Unavailable Roly Herrera Consulting Unavailable Talampas, Kierra D Primary Care Unavailable White, Kelsie L Admitting Unavailable White, Kelsie L Attending Unavailable White, Kelsie L Consulting Unavailable Crowell, Laura Referring Unavailable Crystal, Shaan Attending Unavailable Talampas, Kierra D Primary Care Unavailable Greenwood, Shaan Attending Unavailable Talampas, Kierra D Referring Unavailable Talampas, Kierra D Primary Care Unavailable Roof, Dominick H Attending Unavailable Talampas, Kierra D Referring Unavailable Talampas, Kierra D Primary Care Unavailable Crowell, Laura Attending Unavailable Talampas, Kierra D Referring Unavailable Talampas, Kierra D Primary Care Unavailable Talampas, Kierra D Primary Care Unavailable Talampas, Kierra D Referring Unavailable Crowell, Laura Attending Unavailable Roly Herrera Attending Unavailable Talampas, Kierra D Referring Unavailable Talampas, Kierra D Primary Care Unavailable Crowell, Laura Attending Unavailable Talampas, Kierra D Referring Unavailable Talampas, Kierra D Primary Care Unavailable Roly Herrera Attending Unavailable Crystal, Shaan Referring Unavailable Greenwood, Shaan Consulting Unavailable Greenwood, Shaan Attending Unavailable Greenwood, Shaan Admitting Unavailable Talampas, Kierra D Primary Care Unavailable Talampas, Kierra D Primary Care Unavailable Crystal, Shaan Attending Unavailable Greenwood, Shaan Referring Unavailable Crystal, Shaan Referring Unavailable Greenwood, Shaan Consulting Unavailable Crystal, Shaan Admitting Unavailable Crowell, Laura Attending Unavailable Talampas, Kierra D Primary Care Unavailable Roly Herrera Consulting Unavailable Talampas, Kierra D Primary Care Unavailable Kelsie Muñoz Admitting Unavailable Shaan Monae Attending Unavailable Kelsie Muñoz Consulting Unavailable Crystal, Shaan Referring Unavailable Crystal, Shaan Attending Unavailable Greenwood, Shaan Admitting Unavailable Talampas, Kierra D Primary Care Unavailable Talampas, Kierra D Primary Care Unavailable Luis, Jason Chi Referring Unavailable Luis, Jason Chi Admitting Unavailable Luis, Jason Chi Attending Unavailable Eugene Blanca Consulting Unavailable Greenwood, Shaan Consulting Unavailable Allergies Allergy Classification Reported Allergen(s) Allergy Type Date of Onset Reaction(s) Facility Angiotensin Converting Enzyme (RADHA) Inhibitors (4 sources) quinapril Drug Allergy [address] [facility] Calcium Channel Blockers (2 sources) Verapamil Drug Allergy [address] [facility] Sulfonamides (antibiotic) (2 sources) Sulfonamides (Antibiotic) Drug Allergy [address] [facility] (20 sources) benazepril; Translations: [BENAZEPRIL HCL] Drug Allergy [address] [facility] Work Phone: (20 sources) quinapril; Translations: [QUINAPRIL] Drug Allergy [address] [facility] Work Phone: (20 sources) Sulfonamides (Antibiotic); Translations: [SULFA (SULFONAMIDE ANTIBIOTICS)] Propensity to adverse reactions to drug [address] [facility] Work Phone: (20 sources) Verapamil; Translations: [VERAPAMIL] Drug Allergy [address] [facility] Work Phone: (13 sources) metFORMIN Drug Allergy [address] [facility] (20 sources) DULoxetine; Translations: [DULOXETINE] Drug Allergy [address] [facility] (12 sources) benazepril Drug Allergy 5 DOESNT REMEMBER [facility] (12 sources) Sulfonamides (Antibiotic) Allergy to substance 5 Hives [facility] (1 source) benazepril Drug Allergy 5 [facility] (1 source) quinapril Drug Allergy 5 [facility] (1 source) Sulfonamides (Antibiotic) Drug allergy (disorder) 5 [facility] (1 source) Verapamil Drug Allergy 5 [facility] Medications Current Medications Medication Drug Class(es) Dates Sig (Normalized) Sig (Original) acetaminophen 500 mg oral capsule (20 sources) Start: 10-07-2024 take 1 capsule by mouth at bedtime as needed for pain Start: 01-27-2024 acetaminophen (TYLENOL) 500 mg tablet EVERY 8 HOURS 01/27/2024 Active Start: 01-27-2024 End: 06-12-2024 take 2 tablets by mouth every eight hours Acetaminophen 500 mg Tablet Discontinued 1000 mg PO EVERY 8 HOURS 0 January 27, 2024 12:00am June 12, 2024 9:55am pain amLODIPine 10 mg oral tablet (20 sources) Dihydropyridine Calcium Channel Hillary Start: 08-29-2024 End: 09-04-2024 Start: 08-20-2024 End: 08-29-2024 take 1 tablet [...] take 1 tablet by mouth twice daily amoxicillin-clavul anate potassium (AUGMENTIN) 875-125 mg per tablet Take 1 tablet by mouth two times a day for 5 days. 10 tablet 0 12/12/2023 12/17/2023 Active aspirin 81 mg delayed release oral tablet (20 sources) Platelet Aggregation Inhibitor, Nonsteroidal Anti-inflammatory Drug Start: take 1 tablet by mouth once daily Start: 01-22-2025 End: 01-23-2025 take 1 capsule by mouth once daily Aspirin 325 mg capsule Discontinued 325 mg PO DAILY January 22, 2025 12:00am January 23, 2025 12:25pm for stent End: 02-23-2024 take 1 tablet by mouth once daily aspirin 325 mg tablet Take 325 mg by mouth once daily. 02/23/2024 Discontinued Comment on above: Take 325 mg by mouth once daily. cinnamon bark 500 mg oral capsule (20 sources) Start: 01-07-2025 take 1 capsule by mouth once daily End: 04-17-2024 cinnamon bark (CINNAMON ORAL ) Take 4,200 mg by mouth. 04/17/2024 Discontinued cinnamon bark (C INNAMON ORAL) Take 4,200 mg by mouth. Active cinnamon bark (C INNAMON ORAL) Take 4,200 mg by mouth. 0 Active cinnamon bark (C INNAMON ORAL) Take 1,500 mg by mouth. 0 Active Comment on above: Take 1,500 mg by jorge th. Take 4,200 mg by jorge th. clopidogrel 75 mg oral tablet (20 sources) P2Y12 Platelet Inhibitor Start: 03-19-2024 End: 10-19-2024 take 1 tablet by mouth once daily Cranberry (20 sources) Non-Standardized Food Allergenic Extract, Non-Standardized Plant Allergenic Extract Start: 01-07-2025 take 1 capsule by mouth once daily End: 02-23-2024 CRANBERRY ORAL Take 4,200 mg by mouth. 02/23/2024 Discontinued (Other) CRANBERRY ORAL T nirav 4,200 mg by mouth. Active CRANBERRY ORAL T nirav 4,200 mg by mouth. 0 Active Comment on above: Take 4,200 mg by jorge th. diphenhydrAMINE hydrochloride 25 mg oral capsule (2 sources) Histamine-1 Receptor Antagonist Start: 01-08-20 take 1 capsule by mouth once daily doxycycline monohydrate 100 mg oral tablet (1 source) Tetracycline-class Drug Start: 12-12-19 End: 12-17-19 take 1 tablet by mouth twice daily doxycycline monohydrate 100 mg tablet Take 1 tablet by mouth two times a day for 5 days. 10 tablet 0 12/12/2023 12/17/2023 Active ferrous sulfate 325 mg oral tablet (20 sources) Start: 02-03-20 take 1 tablet by mouth once daily Comment on above: Take 325 mg by mouth . fluticasone propionate 0.05 mg/actuat metered dose nasal spray (20 sources) Corticosteroid Start: 10-08-19 Start: 10-07-2024 Fluticasone Pr opionate 50 mcg/actuation [...] take 1 tablet by mouth once daily Start: 01-03-2024 End: 03-19-2024 take 1 tablet by mouth twice daily Furosemide 40 mg Tablet Discontinued 40 mg PO TWICE DAILY 60 30 2 January 03, 2024 12:00am March 19, 2024 4:40pm water pill gabapentin 100 mg oral capsule (20 sources) Anti-epileptic Agent Start: 10-07-2024 take 1 capsule by mouth three times daily Start: 04-05-2024 End: 07-20-2024 take 1 capsule by mouth three times daily at mealtime Gabapentin 100 mg Capsule Discontinued 100 mg PO 3 TIMES DAILY WITH MEALS 90 30 April 05, 2024 1:00am July 20, 2024 4:21pm Start: 01-27-2024 End: 04-17-2025 take 1 capsule by mouth twice daily Gabapentin 100 mg capsule Discontinued 100 mg PO TWICE A DAY 0 0 July 20, 2024 4:14pm October 07, [...] take 1 tablet by mouth once daily hydroCHLOROthiazide 12.5 mg / losartan potassium 100 mg oral tablet (20 sources) Thiazide Diuretic, Angiotensin 2 Receptor Hillary Start: 01-07-2025 Start: 08-17-2024 End: 08-20-2024 Losartan-Hydrochlorothiazide 100-12.5 mg tablet Discontinued 1 {tbl} PO DAILY August 17, 2024 12:00am August 20, 2024 9:09am Start: 07-20-2024 End: 07-20-2024 Losartan-Hydrochlorothiazide 100-25 mg tablet Discontinued 1 {tbl} PO TWICE A DAY 0 July 20, 2024 4:15pm July 20, 2024 4:29pm Start: 06-20-2024 End: 08-17-2024 Losartan-Hydrochlorothiazide 100-25 mg tablet Discontinued 1 {tbl} PO daily 0 0 July 20, 2024 4:28pm August 17, 2024 10:28am Start: 05-14-2024 End: 06-20-2024 Losartan-Hydrochlorothiazide 100-12.5 mg tablet Discontinued 1 {tbl} PO daily May 14, 2024 1:00am June 20, 2024 11:28am Start: 07-01-2022 End: 01-11-2024 Losartan-Hydrochlorothiazide 100-25 mg tablet Discontinued 1 {tbl} PO DAILY September 23, 2023 12:00am January 03, 2024 7:27am Comment on above: Take 1 tablet by jorge th once daily. iv contrast (will be provided with radiology test) (2 sources) Start: 05-08-19 End: 05-09-19 inject 1 dose intravenously once iv contrast [...] guidelines link. 1 Each 05/08/2024 05/09/2024 Active Lactobacillus Combination No.4 (Probiotic) 3 billion cell capsule (2 sources) Start: 01-08-20 take 3 capsules by mouth once daily magnesium chloride 598 mg delayed release oral tablet (20 sources) Start: 08-18-19 Start: 08-17-2024 Magnesium Chlo ride [Magnesium Chloride [...] take 1 tablet by mouth once daily Comment on above: Take 1 tablet by jorge th once daily. Take 10 mg by mouth [...] Active Start: 04-05-2024 take 1 tablet by mouth twice d aily potassium chloride 20 meq extended release oral tablet (20 sources) Start: 08-20-2024 take 1 tablet by jorge th twice daily Start: 08-20-2024 take 1 tablet by jorge th once daily Potassium Chloride 20 mEq tablet [...] TWICE DAILY WITH MEALS 60 30 0 April 05, 2024 1:00am July 20, 2024 4:21pm tiZANidine 4 mg oral tablet (20 sources) Central alpha-2 Adrenergic Agonist Start: 12-13-2024 take 2 mg by mouth every eight hours as needed Start: 06-19-2024 End: 11-15-2024 take 1 tablet [...] 31, 2023 12:00am February 03, 2024 2:26pm ubidecarenone 100 mg oral ca psule (2 sources) Start: 01-07-2025 Completed/Discontinued Medications Medication Drug Class(es) Dates Sig (Normalized) Sig (Original) Hagsb-Qzyv-Kkjmv-Co llag-Mv-Min (Ronaldo (With Collagen)) 7-7-1.5 gram Powder In Packet (12 sources) Start: 02-03-2024 End: 03-07-2024 Ceuzk-Ndka-Nxerx-Col lag-Mv-Min (Ronaldo (With Collagen)) 7-7-1.5 gram Powder In Packet Discontinued 1 NMA PO TWICE DAILY WITH MEALS 60 30 0 February 03, 2024 12:00am March 07, 2024 10:50pm Start: 02-03-2024 End: 03-07-2024 Qrqbg-Nghn-Tafbf-Collag-Mv-M in (Ronaldo (With Collagen)) 7-7-1.5 gram Powder In Packet Discontinued 1 NMA PO TWICE DAILY WITH MEALS 60 30 February 03, 2024 12:00am March 07, 2024 10:50pm argin/glut/CaHMB/collag/mv-m in (RONALDO, WITH COLLAGEN, ORAL) (15 sources) End: 04-17-2024 argin/glut/CaHMB/collag/mv-m in (RONALDO, WITH COLLAGEN, ORAL) Take by mouth. 04/17/2024 Discontinued argin/glut/CaHMB /collag/mv-min (RONALDO, WITH COLLAGEN, ORAL) Take by mouth. Active ascorbic acid 1000 mg oral tablet (20 sources) Vitamin C End: 02-23-2024 take 1 tablet by mouth once daily Ascorbic Acid (VITAMIN C) 1,000 mg tablet Take 1,000 mg by mouth once daily. 02/23/2024 Discontinued Comment on above: Take 1,000 mg by jorge th once daily. CALCIUM CARB/MAGNESIUM CMB #10 (SUSAN-MAG [...] by mouth. cephalexin 500 mg oral capsule (12 sources) Cephalosporin Antibacterial Start: End: take 1 [...] 0.2 mg oral tablet (20 sources) End: take 1 tablet by mouth once daily Chromium Picolinate 200 mcg tab Take 1 tablet by mouth once daily. 02/23/2024 Discontinued Comment on above: Take 1 tablet by jorge once daily. Cinnamon Preparation (10 sources) Non-Standardized Food Allergenic Extract Start: End: Cinnamon Discontinued 2 {tbl} PO TWICE A [...] mg by mouth . cranberry fruit concentrate (12 sources) Start: 03-07-2024 End: 04-05-2024 cranberry fruit concentrate Discontinued 1 {tbl} PO DAILY March 07, 2024 1:00am April 05, 2024 8:44pm supplement Start: 03-07-2024 End: 04-05-2024 cranberry fruit concentrate Discontinued 1 {tbl} PO DAILY March 07, 2024 1:00am April 05, 2024 8:44pm cranberry-B.qnkwdogs-D-Hg ph os 480 mg-20 mg- 100million cell tab (3 sources) End: 08-02-2022 cranberry-B.ahdxllcj-V-Cj ph os 480 mg-20 mg- 100million cell tab Take [...] Active docusate sodium 50 mg / sennosides, assisted 8.6 mg oral tablet (20 sources) Start: [...] Plus High Protein) 0.08 gram-1.5 kcal/mL Liquid (12 sources) Start: 01-27-2024 End: 02-03-2024 Food Supplemt, [...] Discontinued Comment on above: Take by mouth. Lactobac no.41/Bifidobact no.7 (PROBIOTIC-10 ORAL) (20 sources) End: 02-23-2024 Lactobac no.41/Bifidobact no .7 (PROBIOTIC-10 ORAL) Take by mouth. 02/23/2024 Discontinued Lactobac no.41/B ifidobact no.7 (PROBIOTIC-10 ORAL) Take by mouth. Active Lactobac no.41/B ifidobact no.7 (PROBIOTIC-10 ORAL) Take by mouth. 0 Active Comment on above: Take by mouth. losartan potassium 100 mg oral tablet (20 sources) Angiotensin 2 Receptor Hillary Start: End: take 1 tablet by mouth once daily Losartan 100 mg tablet Discontinued 100 mg PO daily 90 3 August 20, 2024 12:00am January 07, 2025 9:00am Start: 06-12-2024 Losartan 25 mg tablet Discontinued 12.5 mg PO THREE TIMES A DAY June 12, 2024 1:00am Start: 01-03-2024 End: 02-22-2025 take 1 tablet by mouth at dinner Losartan 50 mg Tablet Discontinued 50 mg PO WITH DINNER 30 30 2 January 03, 2024 12:00am April 05, 2024 8:44pm blood pressure Magnesium (20 sources) End: 04-09-2024 Magnesium 200 [...] 1 tablet by jorge th twice daily Start: 03-19-2024 End: 07-20-2024 take 1 tablet [...] on above: Take 3 tablets by mo uth twice daily. Take 75 mg by mouth twice daily. Take 1.5 tablets by mouth two times a day. Miscellaneous Medical Supply (20 sources) Start: End: take 1 dose by mouth twice daily Miscellaneous Medical Supply Take 1 Each by mouth two times a day. Biote Holcombe 3+CoQ10 --30 mg of CoQ10 01/11/2024 06/04/2024 Discontinued (Course of therapy completed) Start: 01-11-2024 take 1 dose by mouth twice daily Miscellaneous Medical Supply Take 1 Each by mouth two times a day. Biote Holcombe 3+CoQ10 --30 mg of CoQ10 01/11/2024 Active Multivitamin capsule (3 sources) End: 08-02-2022 take 1 capsule by mouth once daily Multivitamin capsule Take 1 capsule by mouth once daily. 0 08/02/2022 Discontinued take 1 capsule by mouth once dyana ly Multivitamin capsule Take 1 capsule by mouth once daily. 0 Active Comment on above: Take 1 capsule by mo [facility] once daily. OMEGA-3 FATTY ACIDS/FISH OIL [...] Comment on above: Take 1 capsule by [facility] daily before breakfast. 1/2 hr before meal. [...] 2024 1:00am October 07, 2024 11:40pm mood simvastatin 80 mg oral tablet (20 sources) HMG-CoA Reductase Inhibitor Start: 07-01-2022 End: 07-17-2024 take 1 tablet by mouth at bedtime Simvastatin 80 mg tablet Discontinued 80 mg PO AT BEDTIME September 23, 2023 12:00am June 19, 2024 9:38am cholesterol Comment on above: Take 1 tablet by [...] by mouth. vancomycin 125 mg oral capsule (12 sources) Glycopeptide Antibacterial Start: 5 End: take [...] on above: Take 1,000 mcg by mo [facility] once daily. vitamin E mixed/tocotrienol (VITAMIN [...] , , Sat August 17, 2024 12:00am December 13, 2024 9:43am On Hold: Resume on 10/14/24. Start: 07-02-2022 End: 12-13-2024 Warfarin 2 mg tablet Discont inued 2 mg PO MOWE March 07, 2024 1:00am December 13, 2024 9:45am afib Start: 07-01-2022 End: 12-21-2022 take 0.5 tablet by mouth once daily warfarin (COUMADIN) 5 mg tablet Take 0.5 tablets by mouth once daily. or as directed 90 tablet 3 07/01/2022 12/21/2022 Discontinued End: 07-01-2022 take 2.5 mg by mouth once daily warfarin (COUMADIN) 0. 5 mg Take 2.5 mg by mouth once daily. 0 07/01/2022 Discontinued Comment on above: [facility] Take 0.5 tablets by mouth [...] Date Documented Da te Episodic/Chronic Abdominal pain (12 sources) Epigastric pain; Translations: [Epigastric pain] 10-01-2023 Episodic Adjustment disorders (1 source) Stress and adjustment reaction; Translations: [Adjustment disorder with other symptoms] 12-22-2022 Chronic Anxiety disorders (12 sources) Anxiety; Translations: [Anxiety disorder, unspecified] 01-05-2024 Chronic Cardiac dysrhythmias (20 sources) Atrial fibrillation; Translations: [Unspecified atrial fibrillation] Onset: 5 10-10-2023 Chronic Chronic kidney disease (19 sources) Chronic kidney disease stage 3B ; Translations: [Stage 3b chronic kidney disease (HCC)] Onset: 5 07-17-2024 Chronic Chronic kidney disease (2 sources) Chronic kidney disease; Translations: [Stage 3a chronic kidney disease (HCC)] Onset: 5 Chronic ulcer of skin (14 sources) Pressure ulcer of right heel, stage 2; Translations: [Pressure ulcer, heel] 02-23-2024 Chronic Coagulation and hemorrhagic disorders (20 sources) Factor V deficiency; Translations: [Hereditary deficiency of other clotting factors] Onset: 3 Chronic Congestive heart failure; nonhypertensive (20 sources) Acute exacerbation of chronic congestive heart failure; Translations: [Heart failure, unspecified] Onset: 5 01-11-2024 Chronic Coronary atherosclerosis and other heart disease (14 sources) Subendocardial ischemia; 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-07-2024 Chronic Deficiency and other anemia (15 sources) Anemia; Translations: [Anemia, unspecified] 04-02-2024 Episodic Deficiency and other anemia (16 sources) Iron deficiency anemia; Translations: [Iron deficiency anemia, unspecified] 01-28-2024 Episodic Diabetes mellitus with complications (20 sources) Type 2 diabetes mellitus; Translations: [Type 2 diabetes mellitus with hyperglycemia] Onset: 3 Chronic Diabetes mellitus without complication (15 sources) Diabetes mellitus; Translations: [Type 2 diabetes [...] Chronic Comment on above: ON MEDS Gangrene (15 sources) Atherosclerosis of arteries of the extremities; Translations: [Atherosclerosis of [place] arteries of extremities with gangrene, unspecified extremity] Onset: 5 04-12-2024 Chronic Gastroduodenal ulcer (except hemorrhage) (20 sources) Ulcer of duodenum; Translations: [Duodenal ulcer, unspecified as acute or chronic, without hemorrhage or perforation] Onset: 5 04-17-2024 Chronic Comment on above: egd 6- Heart valve disorders (20 sources) Aortic valve disorder; Translations: [Nonrheumatic aortic valve disorder, unspecified] Onset: 5 04-23-2024 Chronic Immunizations and screening for infectious disease (9 sources) Patient encounter status; Translations: [Encounter for immunization] Episodic Infective arthritis and osteomyelitis (except that caused by tuberculosis or sexually transmitted disease) (17 sources) Acute osteomyelitis of ankle and/or foot; Translations: [Other acute osteomyelitis, right ankle and foot] Onset: 5 04-12-2024 Chronic Occlusion or stenosis of precerebral arteries (20 sources) Carotid atherosclerosis; Translations: [Occlusion and stenosis of unspecified carotid artery] Onset: 3 Chronic Osteoarthritis (12 sources) Osteoarthritis; Translations: [Unspecified osteoarthritis, unspecified site] 03-08-2024 Chronic Other aftercare (20 sources) Long-term current use of anticoagulant; Translations: [long-term (current) use of anticoagulants] 06-20-2024 Episodic Other aftercare (12 sources) Surgical follow-up; Translations: [Encounter for surgical aftercare following surgery on the circulatory system] 05-14-2024 Episodic Other aftercare (1 source) Other usp (current) drug therapy; Translations: [Encounter for long-term current use of medication] Onset: 5 Episodic Other aftercare (1 source) [...] and grafts] 04-17-2024 Chronic Other circulatory disease (20 sources) Disorder of carotid artery; Translations: [Disorder [...] without residual deficits] Episodic Other circulatory disease (12 sources) Elevated blood-pressure reading without diagnosis of hypertension; Translations: [Elevated blood-pressure reading, without diagnosis of hypertension] 01-27-2024 Episodic Other connective tissue disease (1 source) Cramp in lower limb; Translations: [Cramp and spasm] 01-11-2024 Episodic Other connective tissue disease (13 sources) Foot pain; Translations: [Pain in unspecified foot] 03-01-2024 Episodic Other connective tissue disease (14 sources) Spasm; Translations: [Other muscle spasm] 03-19-2024 Episodic Other connective tissue disease (12 sources) Pain in lower limb; Translations: [Pain in right leg] 01-21-2024 Episodic Other connective tissue disease (14 sources) Neuropathic pain; Translations: [Neuralgia and neuritis, unspecified] 01-28-2024 Episodic Comment on above: Right foot and ankle Other diseases of bladder and urethra (15 sources) Overactive bladder; Translations: [Overactive bladder] Chronic [...] diarrhea] Onset: 5 Chronic Other gastrointestinal disorders (20 sources) Diarrhea; Translations: [Diarrhea, unspecified] 06-12-2024 Episodic Other hematologic conditions (1 source) History [...] classified] Onset: 3 Chronic Other liver diseases (14 sources) Enzyme level - finding; Translations: [Transaminitis] 11-14-2023 Episodic Other liver diseases (2 sources) ALT (SGPT) level raised; Translations: [Elevated alanine aminotransferase (ALT) level] 11-18-2023 Episodic Other lower respiratory disease (2 sources) Chronic cough; Translations: [Chronic cough] Onset: 5 02-04-2023 Episodic Other lower respiratory disease (4 [...] Translations: [Anesthesia of skin] 09-23-2023 Episodic Other nervous system disorders (1 source) Other acute postprocedural pain; Translations: [Other acute postprocedural pain] Onset: 5 Episodic Other nutritional; endocrine; and metabolic disorders (20 sources) High density lipoprotein above reference range; 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] Onset: 3 03-15-2023 Chronic Other nutritional; endocrine; and metabolic disorders (12 sources) Body mass index 25-29 - overweight; Translations: [Overweight] 03-08-2024 Episodic Other skin disorders (2 sources) Foot callus; Translations: [Corns and callosities] Episodic Other skin disorders (1 source) Lesion of face; Translations: [Disorder of the skin and subcutaneous tissue, unspecified] 06-07-2023 Episodic Other upper respiratory disease (14 sources) Allergic rhinitis; Translations: [Allergic rhinitis, unspecified] 03-19-2024 Chronic Other upper respiratory disease (1 source) Allergic rhinitis, unspecified; Translations: [Allergic rhinitis, unspecified] Onset: 5 Chronic Other upper respiratory infections (3 sources) Acute sinusitis; Translations: [Other acute sinusitis] 06-07-2023 Episodic Yuridia-; endo-; and myocarditis; cardiomyopathy (except that caused by tuberculosis or sexually transmitted disease) (12 sources) Dilated cardiomyopathy; Translations: [Dilated cardiomyopathy] 01-27-2024 Chronic Peripheral and visceral atherosclerosis (20 sources) Peripheral vascular disease; Translations: [Peripheral vascular disease, unspecified] Onset: 4 Resolved: 5 06-07-2023 Chronic Comment on above: 01/2024 fem-pop bypas s with PTFE03/2024 revision jump graft from fem-pop bypass to distal PT with reverse GSV; 2 compartment fasciotomy Pleurisy; pneumothorax; pulmonary collapse (14 sources) Pleural effusion; Translations: [Pleural effusion, not [...] Rojas 01/19/[address] Lily Rodgers LEG Respiratory failure; insufficiency; arrest (adult) (12 sources) Acute hypoxemic respiratory failure; Translations: [Acute respiratory failure with hypoxia] 01-11-2024 Episodic Screening and history of mental health and substance abuse codes (2 sources) Encounter for screening examination for other mental health and behavioral disorders; Translations: [Encounter for screening for depression] Onset: 5 Episodic Skin and subcutaneous tissue infections (20 sources) Cellulitis; Translations: [Cellulitis, unspecified] 03-21-2024 Episodic Thyroid disorders (20 sources) Subclinical hypothyroidism; Translations: [Other specified hypothyroidism] Onset: 3 Chronic Unclassified (1 source) Elevated alanine aminotransferase (ALT) level; Translations: [Elevated alanine aminotransferase (ALT) level] Onset: 4 Unclassified (1 source) Chronic atrial fibrillation, unspecified; Translations: [Chronic atrial fibrillation, unspecified] Onset: 5 Past or Other Problems Problem Classification Problem Date Documented Da te Episodic/Chronic Acute posthemorrhagic anemia (15 sources) Acute posthemorrhagic anemia; Translations: [Acute posthemorrhagic anemia] Onset: 5 10-07-2024 Episodic Deficiency and other anemia (2 sources) Anemia, unspecified; Translations: [Anemia, unspecified type] Onset: 4 Episodic Deficiency and other anemia (1 source) Iron deficiency anemia, unspecified; Translations: [Iron deficiency anemia, unspecified] Onset: 4 Episodic Fluid and electrolyte disorders (17 sources) Hyponatremia; Translations: [Hypo-osmolality and hyponatremia] Onset: 5 10-11-2023 Episodic Gangrene (20 sources) Gangrenous disorder; Translations: [Gangrene, not elsewhere classified] Onset: 5 02-23-2024 Episodic Gastroduodenal ulcer (except hemorrhage) (3 sources) Acute gastric ulcer; Translations: [Acute gastric ulcer without hemorrhage or perforation] Onset: 5 04-17-2024 Episodic Gastrointestinal hemorrhage (20 sources) Acute upper gastrointestinal hemorrhage; Translations: [Gastrointestinal hemorrhage, unspecified] Onset: 5 10-07-2024 Episodic Heart valve disorders (20 sources) Heart murmur; Translations: [Cardiac murmur, unspecified] Onset: 3 Episodic Malaise and fatigue (20 sources) Asthenia; Translations: [Weakness] Onset: 5 02-23-2024 Episodic Nonspecific chest pain (16 sources) Chest pain; Translations: [Chest pain, unspecified] Onset: 5 11-14-2023 Episodic Other aftercare (1 source) long-term (current) use of anticoagulants; Translations: [long-term (current) use of anticoagulants] Onset: 5 Episodic Other aftercare (2 sources) Encounter for orthopedic aftercare following surgical amputation; Translations: [Encounter for orthopedic aftercare following surgical amputation] Onset: 5 Episodic Other connective tissue disease (1 source) Pain in right lower leg; Translations: [Pain in right lower leg] Onset: 5 Episodic Other connective tissue disease (1 source) Other muscle spasm; Translations: [Other muscle spasm] Onset: 5 Episodic Other connective tissue disease (1 source) Neuralgia and neuritis, unspecified; Translations: [Neuralgia and neuritis, unspecified] Onset: 5 Episodic Other gastrointestinal disorders (1 source) Other fecal abnormalities; Translations: [Other fecal abnormalities] Onset: 5 Episodic Other gastrointestinal disorders (1 source) Diarrhea, unspecified; Translations: [Diarrhea, unspecified] Onset: 5 Episodic Other hematologic conditions (1 source) Personal history of diseases of the blood and blood-forming organs and certain disorders involving the immune mechanism; Translations: [History of anemia] Onset: 5 Episodic Other screening for suspected conditions (not mental disorders or infectious disease) (20 sources) Prolonged QT interval; Translations: [Abnormal electrocardiogram [ECG] [EKG]] Onset: 4 01-28-2024 Episodic Residual codes; unclassified (1 source) Other specified postprocedural states; Translations: [Other specified postprocedural states] Onset: 5 Episodic Spondylosis; intervertebral disc disorders; other back problems (1 source) Thoracic back pain; Translations: [Dorsalgia, unspecified] 10-10-2023 Episodic Superficial injury; contusion (15 sources) Hematoma of lower leg; Translations: [Contusion of unspecified lower leg, initial encounter] Onset: 5 03-21-2024 Episodic Results Test Name Value Interpretation Reference Range Facility Surgery Visit Reporton 03-13 Surgery Visit Report Normal [facility] Ankle Brachial Indexon 03-08 Ankle Brachial Index Normal [facility] US Art Duplex Unilat Lower E xton 03-08-2025 Art Duplex Unilat Lower Ext Normal [facility] Protime w/INR Fingerstickon 03-02-2025 INR Coag (PPP) [Relative time] 1.1 {INR} Normal [facility] Comment on above: Result Comment: Crit ical Value > 4.0 Performed By: #### L 9200.0000 ####[facility] [address] [place], [place], [id number] Protime [place]en 13.2 SEC Normal 11.7-14.9 [facility] Comment on above: Performed By: #### L 9200.0000 ####[facility] [address] [place], [address] Bedside Glucoseon 02-27-2025 FINGERSTICK GLU 177 mg/dL High 74-106 [facility] Comment on above: Result Comment: LEVI HYDE OF PATIENT CARE PER NURSING PROTOCOL Performed By: #### L 501.080 ####[facility] [address] [place], [address] CBC W/Diff, Automatedon 01-31 Absolute Lymph 0.86 X10 3/uL Normal 0.83-4.51 [facility] Comment on above: Performed By: #### L 100.0100 ####[facility] [address] [place], [address] Absolute Neut 6.3 X10 3/uL Normal 2.0-7.7 [facility] Comment on above: Performed By: #### L 100.0100 ####[facility] [address] [place], [address] Basophils/100 WBC (Bld) 0.1 % Normal 0-[address] [facility] Comment on above: Performed By: #### L 100.0100 ####[facility] [address] [place], [address] Eosinophils/100 WBC (Bld) 0.0 % Normal 0-5 [facility] Comment on above: Performed By: #### L 100.0100 ####[facility] [address] [place], [address] Erythrocyte distribution width (RBC) [Ratio] 14.9 % High 11.6-14.6 [facility] Comment on above: Performed By: #### L 100.0100 ####[facility] [address] [place], [address] Hematocrit (Bld) [Volume fraction] 28.4 % Low 37-47 [facility] Comment on above: Performed By: #### L 100.0100 ####[facility] [address] [place], [address] Hemoglobin (Bld) [Mass/Vol] 9.7 g/dL Low 12.0-15.0 [facility] Comment on above: Performed By: #### L 100.0100 ####[facility] [address] [place], [address] IG% 0.700 Normal 0.0-0.9 [facility] Comment on above: Result Comment: IG% - Immature Granulocytes (promyelocytes, myelocytes andmetamyelocytes) > 1% indicates that a LEFT SHIFT is Present. Performed By: #### L 100.0100 ####[facility] [address] [place], [address] Lymphocytes/100 WBC (Bld) 11.2 % Low 19-41 [facility] Comment on above: Performed By: #### L 100.0100 ####[facility] [address] [place], [address] MCH (RBC) [Entitic mass] 32.0 pg Normal 27.0-32.0 [facility] Comment on above: Performed By: #### L 100.0100 ####[facility] [address] [place], [address] MCHC (RBC) [Mass/Vol] 34.2 g/dL Normal 32-36 [facility] Comment on above: Performed By: #### L 100.0100 ####[facility] [address] [place], [address] MCV (RBC) [Entitic vol] 93.7 fL Normal 81-[address] [facility] Comment on above: Performed By: #### L 100.0100 ####[facility] [address] [place], [address] Monocytes/100 WBC (Bld) 6.6 % Normal 0-[address] [facility] Comment on above: Performed By: #### L 100.0100 ####[facility] [address] [place], [address] Neutrophils/100 WBC (Bld) 81.4 % High 47-70 [facility] Comment on above: Performed By: #### L 100.0100 ####[facility] [address] [place], [address] Nucleated RBC (Bld) [#/Vol] 0 10*3/uL Normal 0-5 [facility] Comment on above: Performed By: #### L 100.0100 ####[facility] [address] [place], [address] Platelet mean volume (Bld) [Entitic vol] 10.5 fL Normal 6.2-12.0 [facility] Comment on above: Performed By: #### L 100.0100 ####[facility] [address] [place], [address] Platelets (Bld) [#/Vol] 191 10*3/uL Normal 150-450 [facility] Comment on above: Performed By: #### L 100.0100 ####[facility] [address] [place], [address] RBC (Bld) [#/Vol] 3.03 10*6/uL Low 4.2-5.4 [facility] Comment on above: Performed By: #### L 100.0100 ####[facility] [address] [place], [address] RDW SD 51.3 fl High 35.1-43.9 [facility] Comment on above: Performed By: #### L 100.0100 ####[facility] [address] [place], [address] WBC (Bld) [#/Vol] 7.7 10*3/uL Normal 4.4-11.[address] [facility] Comment on above: Performed By: #### L 100.0100 ####[facility] [address] [place], [address] ACT Activated Clotting Timeo n 02-26-2025 ACTk CLOT TIME 250 sec High 74-137 [facility] Comment on above: Performed By: #### L 9100.0100 ####[facility] [address] [place], [address] ACTk CLOT TIME 301 sec High 74-137 [facility] Comment on above: Performed By: #### L 9100.0100 ####[facility] [address] [place], [address] Bedside Glucoseon 02-26-2025 FINGERSTICK GLU 262 mg/dL High 74-106 [facility] Comment on above: Result Comment: LEVI GEMENT OF PATIENT CARE PER NURSING PROTOCOL Performed By: #### L 501.080 ####[facility] [address] [place], [address] FINGERSTICK GLU 288 mg/dL [facility] 74-106 [facility] Comment on above: Result Comment: LEVI GEMENT OF PATIENT CARE PER NURSING PROTOCOL Performed By: #### L 501.080 ####[facility] [address] [place], [address] FINGERSTICK GLU 277 mg/dL [facility] 74-106 [facility] Comment on above: Result Comment: LEVI GEMENT OF PATIENT CARE PER NURSING PROTOCOL Performed By: #### L 501.080 ####[facility] [address] [place], [address] FINGERSTICK GLU 201 mg/dL High 74-106 [facility] Comment on above: Result Comment: LEVI GEMENT OF PATIENT CARE PER NURSING PROTOCOL Performed By: #### L 501.080 ####[facility] [address] [place], [address] MR/POSTOP.ANEon 02-26-2025 MR/POSTOP.ANE Normal [facility] MR/HOQBIXRN3em 02-26-2025 MR/POSTOPAN2 Normal [facility] Operative Reporton Operative Report Normal [facility] MR/PAT.ANEon 02-21-2025 MR/PAT.ANE Normal [facility] MR/PAT.ANEon 02-12-2025 MR/PAT.ANE Normal [facility] Surgery Visit Reporton 02-05 Surgery Visit Report Normal [facility] ALBUMIN/CREATININE RATIO, UR INEon 01-29-2025 Albumin DL <= 20 mg/L (U) [Mass/Vol] mg/dL Normal [facility] Comment on above: Order Comment: Speci men Type: URINE SPECIMEN Ordering Facility: [facility] Address: [address] [place] [address] Performed By: #### U ACR #### [facility] CLIA [id number] [address] [place] [address] [place] Albumin/Creatinine (U) [Mass ratio] Normal [facility] Comment on above: Order Comment: Speci men Type: URINE SPECIMEN Ordering Facility: [facility] Address: [address] [place] [address] Result Comment: Not calculated Adult Male and Female Nephrotic Criteria: <30 mg/g is considered normal to mildly increased 30-300 mg/g is considered moderately increased >300 mg/g is considered severely increased KDIGO. (2013). KDIGO 2012 Clinical Practice Guideline for the Evaluation and Management of Chronic Kidney Disease. Official Journal of the International Society of Nephrology, 3(1), 1-150. Performed By: #### U ACR #### [facility] CLIA [id number] [address] [place] [address] [place] Creatinine (U) [Mass/Vol] 29.8 mg/dL Normal 20.0-300.0 [facility] Comment on above: Order Comment: Speci men Type: URINE SPECIMEN Ordering Facility: [facility] Address: [address] [place] [address] Performed By: #### U ACR #### [facility] CLIA [id number] [address] [place] [address] [place] CNOVon 01-29-2025 CNOV Office Visit (INTMWS ) ERI PRITCHARD ([id number]) 1940 F Date Time Provider Department 01/29/25 10:00 AM KIERRA SANTIAGO INTMWS During your visit today, we recorded the following information about you: Pulse Respiration Blood pressure Weight 81/minute 16/minute 150/80 68.7 kg Height 1.585 m Kierra Santiago MD 03/08/2025 2:09 AM Signed Subjective Eri Pritchard is a 84 year old female. MAYNOR Hwang is a 84-year-old female with a history of HTN, DM, and recent left carotid stent placement, presenting for a 6-month follow-up visit. Eri reports feeling pretty good following her recent left carotid stent placement. She is currently not taking her antihypertensive medication, losartan, due to consistently low blood pressure readings. She has been monitoring her blood pressure at home, with systolic readings ranging from 100-130 mmHg and diastolic readings primarily in the 60-70 mmHg range, occasionally dropping to 50 mmHg or rising to 80 mmHg. Her heart rate has been stable, averaging 60-70 bpm. Prior to the stent placement, her blood pressure readings were in the 130-140 mmHg range. She also monitors her blood glucose levels daily, with fasting readings primarily in the 180-200 mg/dL range, occasionally as low as 156 mg/dL. She notes that her blood glucose levels have been more stable recently, with fewer readings above 200 mg/dL. She denies any symptoms of hyperglycemia or hypoglycemia. She reports that her surgical incision was painful a few days ago, but she applied vitamin C cream, which provided relief. She is scheduled for a follow-up appointment with her surgeon's assistant strength coach on February 05 and is planning to undergo a right carotid stent placement in a month. She reports a persistent dry cough, particularly noticeable when lying down at night, which has been affecting her sleep. She has been managing this with chamomile tea, which she finds helpful. She is currently taking pantoprazole for GERD, Flonase, and loratadine for allergies. She denies any recent changes in her medication regimen. She reports that her balance has improved since her surgery, and she no longer needs to use a walker at home. She denies any recent falls or near-falls. She is able to walk well despite having no toes on her right foot and reports that a pressure injury to her heel from last year has completely healed. She does note that she has to be careful about her balance. She reports regular bowel movements and denies any issues with nausea, gas, or bloating. She is taking a probiotic and eating yogurt to prevent C. diff, which she has had three times in the past. She denies any current symptoms of C. diff. She reports that her weight has remained stable within 3 pounds. She is not currently exercising due to her recent surgery but stays active by cooking. She reports eating a healthy diet, including fruits, vegetables, whole grains, and lean proteins, and denies any use of tobacco products. She reports that her vision is good with new lenses, and she is doing well with her hearing aids. She denies any current symptoms of depression or anxiety and is not taking any antidepressant medications. She reports that she was previously diagnosed with atrial fibrillation but denies any current symptoms. She is currently taking amlodipine 10 mg daily, metoprolol succinate 25 mg twice daily, and losartan hydrochlorothiazide 112.5 mg. She is not taking the additional losartan that was prescribed. She is also taking magnesium supplements to prevent leg cramps, which she reports have not occurred for quite a while. She denies any issues with medication refills. She has advanced directives on file from December last year. She denies seeing a computer assistant or urologist and is not aware of any recent cholesterol checks. She is scheduled for follow-up labs with her surgeon's assistant strength coach on February 05. PAST MEDICAL HISTORY Diagnosis Date Atrial fibrillation (HCC) Diabetes mellitus (HCC) Factor V deficiency (HCC) GERD (gastroesophageal reflux disease) TIA (transient ischemic attack) 2001 Current Outpatient Medications Medication Sig Aspirin 81 mg tab Take 81 mg by mouth. losartan-hydroCHLOROth iazide (HYZAAR) 100-12.5 mg per tablet Take 1 tablet by mouth once daily. lactobacillus combination no.4 (PROBIOTIC) 3 billion cell cap Take by mouth. Cranberry 500 mg cap Take by mouth. ubidecarenone/vitamin E mixed (COQ10 SG 100 ORAL) Take by mouth. Cinnamon Bark 500 mg cap Take by mouth. diphenhydrAMINE (BENADRYL) 25 mg tablet Take 25 mg by mouth every 6 hours as needed. metoprolol succinate ER (TOPROL XL) 25 mg 24 hr tablet Take 1 tablet by mouth two times a day. tiZANidine (ZANAFLEX) 4 mg tablet Take 1 tablet by mouth every 8 hours as needed. glimepiride (AMARYL) 2 mg tablet Take 1 tablet by mouth two ti (more content not included)... Normal [facility] Absolute lymphocyte countOrd ered By: Shaan Rojas on 01-23-2025 Lymphocytes Auto (Unsp spec) [#/Vol] 0.88 10*3/uL 0.83-4.51 [facility] Absolute neutrophil countOrd ered By: Shaan Rojas on 01-23-2025 Neutrophils (Bld) [#/Vol] 6.9 10*3/uL 2.0-7.7 [facility] Automated lymphocyte count a s percentage of total leukocytesOrdered By: Shaan Rojas on 01-23-2025 Lymphocytes/100 WBC Auto (Unsp spec) 10.3 % Low 19-41 [facility] Basophil percentageOrdered B y: Shaan Rojas on 01-23-2025 Basophils/100 WBC (Bld) 0.1 % 0-[address] [facility] Bedside Glucoseon 01-23-2025 FINGERSTICK GLU 176 mg/dL High 74-106 [facility] Comment on above: Result Comment: LEVI HYDE OF PATIENT CARE PER NURSING PROTOCOL Performed By: #### L 501.080 ####[facility] [address] [place], [address] FINGERSTICK GLU 169 mg/dL High 74-106 [facility] Comment on above: Result Comment: LEVI HYDE OF PATIENT CARE PER NURSING PROTOCOL Performed By: #### L 501.080 ####[facility] [address] [place], [address] CBC W/Diff, Automatedon 01-01 Absolute Lymph 0.88 X10 3/uL Normal 0.83-4.51 [facility] Comment on above: Performed By: #### L 100.0100 ####[facility] [address] [place], [address] Absolute Neut 6.9 X10 3/uL Normal 2.0-7.7 [facility] Comment on above: Performed By: #### L 100.0100 ####[facility] [address] [place], [address] Basophils/100 WBC (Bld) 0.1 % Normal 0-[address] [facility] Comment on above: Performed By: #### L 100.0100 ####[facility] [address] [place], [address] Eosinophils/100 WBC (Bld) 0.0 % Normal 0-5 [facility] Comment on above: Performed By: #### L 100.0100 ####[facility] [address] [place], [address] Erythrocyte distribution width (RBC) [Ratio] 15.3 % High 11.6-14.6 [facility] Comment on above: Performed By: #### L 100.0100 ####[facility] [address] [place], [address] Hematocrit (Bld) [Volume fraction] 27.4 % Low 37-47 [facility] Comment on above: Performed By: #### L 100.0100 ####[facility] [address] [place], [address] Hemoglobin (Bld) [Mass/Vol] 9.1 g/dL Low 12.0-15.0 [facility] Comment on above: Performed By: #### L 100.0100 ####[facility] [address] [place], [address] IG% 0.500 Normal 0.0-0.9 [facility] Comment on above: Result Comment: IG% - Immature Granulocytes (promyelocytes, myelocytes andmetamyelocytes) > 1% indicates that a LEFT SHIFT is Present. Performed By: #### L 100.0100 ####[facility] [address] [place], [address] Lymphocytes/100 WBC (Bld) 10.3 % Low 19-41 [facility] Comment on above: Performed By: #### L 100.0100 ####[facility] [address] [place], [address] MCH (RBC) [Entitic mass] 32.2 pg High 27.0-32.0 [facility] Comment on above: Performed By: #### L 100.0100 ####[facility] [address] [place], [address] MCHC (RBC) [Mass/Vol] 33.2 g/dL Normal 32-36 [facility] Comment on above: Performed By: #### L 100.0100 ####[facility] [address] [place], [address] MCV (RBC) [Entitic vol] 96.8 fL Normal 81-[address] [facility] Comment on above: Performed By: #### L 100.0100 ####[facility] [address] [place], [address] Monocytes/100 WBC (Bld) 7.5 % Normal 0-[address] [facility] Comment on above: Performed By: #### L 100.0100 ####[facility] [address] [place], [address] Neutrophils/100 WBC (Bld) 81.6 % High 47-70 [facility] Comment on above: Performed By: #### L 100.0100 ####[facility] [address] [place], [address] Nucleated RBC (Bld) [#/Vol] 0 10*3/uL Normal 0-5 [facility] Comment on above: Performed By: #### L 100.0100 ####[facility] [address] [place], [address] Platelet mean volume (Bld) [Entitic vol] 11.1 fL Normal 6.2-12.0 [facility] Comment on above: Performed By: #### L 100.0100 ####[facility] [address] [place], [address] Platelets (Bld) [#/Vol] 159 10*3/uL Normal 150-450 [facility] Comment on above: Performed By: #### L 100.0100 ####[facility] [address] [place], [address] RBC (Bld) [#/Vol] 2.83 10*6/uL Low 4.2-5.4 [facility] Comment on above: Performed By: #### L 100.0100 ####[facility] [address] [place], [address] RDW SD 53.7 fl High 35.1-43.9 [facility] Comment on above: Performed By: #### L 100.0100 ####[facility] [address] [place], [address] WBC (Bld) [#/Vol] 8.5 10*3/uL Normal 4.4-11.[address] [facility] Comment on above: Performed By: #### L 100.0100 ####[facility] [address] [place], [address] Eosinophil percentageOrdered By: Shaan Rojas on 01-23-2025 Eosinophils/100 WBC (Bld) 0.0 % 0-5 [facility] Erythrocyte distribution wid th ratioOrdered By: Shaan Rojas on 01-23-2025 Erythrocyte distribution width (RBC) [Ratio] 15.3 % High 11.6-14.6 [facility] Erythrocyte distribution wid th standard deviationOrdered By: Shaan Rojas on 01-23-2025 Erythrocyte distribution width (RBC) [Ratio] 53.7 fl High 35.1-43.9 [facility] Glucose measurement at bedsi deOrdered By: Shaan Rojas on 01-23-2025 Glucose [Mass/Vol] 176 mg/dL High 74-[address] [facility] Comment on above: MANAGEMENT OF PATIEN T CARE PER NURSING PROTOCOL Hematocrit Auto (Bld) [Volum e fraction]Ordered By: Shaan Rojas on 01-23-2025 Hematocrit (Bld) [Volume fraction] 27.4 % Low 37-47 [facility] Hemoglobin measurementOrdere d By: Shaan Rojas on 01-23-2025 Hemoglobin (Bld) [Mass/Vol] 9.1 g/dL Low 12.0-15.0 [facility] Immature granulocytes/100 WB C Auto (Bld)Ordered By: Shaan Rojas 01-23-2025 Immature granulocytes/100 WBC (Bld) 0.500 % 0.0-0.9 [facility] Comment on above: IG% - Immature Granu locytes (promyelocytes, myelocytes and metamyelocytes) > 1% indicates that a LEFT SHIFT is Present. MCV (mean corpuscular volume ) determinationOrdered By: Shaan Rojas on 01-23-2025 MCV (RBC) [Entitic vol] 96.8 fL 81-[address] [facility] Mean corpuscular hemoglobin (MCH) determinationOrdered By: Shaan Rojas on 01-23-2025 MCH (RBC) [Entitic mass] 32.2 pg High 27.0-32.0 [facility] Mean corpuscular hemoglobin concentration (MCHC) determinationOrdered By: Shaan Rojas on 01-23-2025 MCHC (RBC) [Mass/Vol] 33.2 g/dL 32-36 [facility] Mean platelet volume determi nationOrdered By: Shaan Rojas on 01-23-2025 Platelet mean volume (Bld) [Entitic vol] 11.1 fL 6.2-12.0 [facility] Monocyte percentageOrdered B y: Shaan Rojas on 01-23-2025 Monocytes/100 WBC (Bld) 7.5 % 0-[address] [facility] Neutrophil percentageOrdered By: Shaanbhavik Rojas on 01-23-2025 Neutrophils/100 WBC (Bld) 81.6 % High 47-70 [facility] Nucleated red blood cell per centageOrdered By: Shaanbhavik Rojas on 01-23-2025 Nucleated RBC/100 WBC (Bld) [Ratio] 0 % 0-5 [facility] Platelet countOrdered By: Blanco Rojas on 01-23-2025 Platelets (Bld) [#/Vol] 159 10*3/uL 150-450 [facility] RBC Auto (Bld) [#/Vol]Ordere d By: Shaan Rojas on 01-23-2025 RBC (Bld) [#/Vol] 2.83 10*6/uL Low 4.2-5.4 [facility] White blood cell (WBC) count Ordered By: Shaan Rojas on 01-23-2025 WBC (Bld) [#/Vol] 8.5 10*3/uL 4.4-11.[address] [facility] ACT Activated Clotting Timeo n 01-22-2025 ACTk CLOT TIME 256 sec High 74-137 [facility] Comment on above: Performed By: #### L 9100.0100 ####[facility] [address] [facility] [address] [place], [place], [id number] ACTk CLOT TIME 279 sec High 74-137 [facility] Comment on above: Performed By: #### L 9100.0100 ####[facility] [address] [facility] [place], [place], [id number] Bedside Glucoseon 01-22-2025 FINGERSTICK GLU 214 mg/dL High 74-106 [facility] Comment on above: Result Comment: LEVI HYDE OF PATIENT CARE PER NURSING PROTOCOL Performed By: #### L 501.080 ####[facility] [address] [place], [address] FINGERSTICK GLU 228 mg/dL High 74-106 [facility] Comment on above: Result Comment: LEVI GEMENT OF PATIENT CARE PER NURSING PROTOCOL Performed By: #### L 501.080 ####[facility] [address] [place], [address] FINGERSTICK GLU 217 mg/dL High 74-106 [facility] Comment on above: Result Comment: LEVI GEMENT OF PATIENT CARE PER NURSING PROTOCOL Performed By: #### L 501.080 ####[facility] [address] [place], [address] FINGERSTICK GLU 170 mg/dL High [address] [place] [address] Comment on above: Result Comment: LEVI GEMENT OF PATIENT CARE PER NURSING PROTOCOL Performed By: #### L 501.080 ####[facility] [address] [place], [address] International normalized rat io (INR) calculationOrdered By: Shaan Rojas on 01-22-2025 INR Coag (Bld) [Relative time] 1.1 {INR} [facility] MR/POSTOP.ANEon 01-22-2025 MR/POSTOP.ANE Normal [facility] MR/BJHFNEYA5mt 01-22-2025 MR/POSTOPAN2 Normal [facility] Operative Reporton Operative Report Normal [facility] Prothrombin Time w/INRon INR Coag (PPP) [Relative time] 1.1 {INR} Normal [facility] Comment on above: Performed By: #### L 300.3900 ####[facility] [address] [place], [address] PT Coag (PPP) [Time] 14.6 s Normal 11.7-14.9 [facility] Comment on above: Performed By: #### L 300.3900 ####[facility] [address] [place], [place], [address] Prothrombin timeOrdered By: Shaan Rojas on 01-22-2025 PT Coag (PPP) [Time] 14.6 s 11.7-14.9 [facility] Protime w/INR Fingerstickon 01-22-2025 INR Coag (PPP) [Relative time] 1.4 {INR} Normal [facility] Comment on above: Result Comment: Crit ical Value > 4.0 Performed By: #### L 9200.0000 ####[facility] [address] [place], [address] Protime Coagsen 15.9 SEC High 11.7-14.9 [facility] Comment on above: Performed By: #### L 9200.0000 ####[facility] [address] [place], [place], [address] Whole blood prothrombin time Ordered By: Shaan Rojas on 01-22-2025 PT Coag (Bld) [Time] 15.9 s High 11.7-14.9 [facility] MR/PAT.ANEon 01-17-2025 MR/PAT.ANE Normal [facility] Anion gap in Serum or Plasma Ordered By: Shaan Rojas on 01-16-2025 Anion gap [Moles/Vol] 16 mmol/L High -15 [facility] BUN/creatinine ratioOrdered By: Shaan Rojas on 01-16-2025 Urea nitrogen/Creatinine [Mass ratio] 24.0 mg/mg High 10-20 [facility] Basic Metabolic Profile (BMP )on 01-16-2025 BUN/CRE 24.0 RATIO High - [facility] Comment on above: Performed By: #### L 100.0500, BTSPAT, L500.2500 ####[facility] [address] [place], [address] Calcium [Mass/Vol] 9.4 mg/dL Normal 7.6-11.[address] [facility] Comment on above: Performed By: #### L 100.0500, BTSPAT, L500.2500 ####[facility] [address] [place], [address] Chloride [Moles/Vol] 100 mmol/L Normal 98-108 [facility] Comment on above: Performed By: #### L 100.0500, BTSPAT, L500.2500 ####[facility] [address] [place], [address] CO2 [Moles/Vol] 18.9 mmol/L Low 21.0-32.0 [facility] Comment on above: Performed By: #### L 100.0500, BTSPAT, L500.2500 ####[facility] [address] [place], [address] Creatinine [Mass/Vol] 1.21 mg/dL High 0.70-1.20 [facility] Comment on above: Performed By: #### L 100.0500, BTSPAT, L500.2500 ####[facility] [address] [place], [address] GAP 16 High 5-15 [facility] Comment on above: Performed By: #### L 100.0500, BTSPAT, L500.2500 ####[facility] [address] [place], [address] GFR/1.73 sq M.predicted among non-blacks MDRD (S/P/Bld) [Vol rate/Area] 44 mL/min/{1.73_m2} Low >60 [facility] Comment on above: Result Comment: mL/m in/1.73m2 CKD-EPI Creatinine Equation (2020) Performed By: #### L 100.0500, BTSPAT, L500.2500 ####[facility] [address] [place], [address] Glucose [Mass/Vol] 337 mg/dL High 70-[address] [facility] Comment on above: Performed By: #### L 100.0500, BTSPAT, L500.2500 ####[facility] [address] [place], [address] Potassium [Moles/Vol] 4.0 mmol/L Normal 3.3-5.1 [facility] Comment on above: Result Comment: Hemo lysis present, Results??could be affected.?? Performed By: #### L 100.0500, BTSPAT, L500.2500 ####[facility] [address] [place], [address] Sodium [Moles/Vol] 135 mmol/L Normal 133-[address] [facility] Comment on above: Performed By: #### L 100.0500, BTSPAT, L500.2500 ####[facility] [address] [place], [address] Urea nitrogen [Mass/Vol] 29 mg/dL High 4-19 [facility] Comment on above: Performed By: #### L 100.0500, BTSPAT, L500.2500 ####[facility] [address] [place], [address] CBC-Complete Blood Cnt No Di ffon 01-16-2025 Erythrocyte distribution width (RBC) [Ratio] 15.0 % High 11.6-14.6 [facility] Comment on above: Performed By: #### L 100.0500, BTSPAT, L500.2500 ####[facility] [address] [place], [address] Hematocrit (Bld) [Volume fraction] 33.2 % Low 37-47 [facility] Comment on above: Performed By: #### L 100.0500, BTSPAT, L500.2500 ####[facility] [address] [place], [address] Hemoglobin (Bld) [Mass/Vol] 11.2 g/dL Low 12.0-15.0 [facility] Comment on above: Performed By: #### L 100.0500, BTSPAT, L500.2500 ####[facility] [address] [place], [address] MCH (RBC) [Entitic mass] 31.8 pg Normal 27.0-32.0 [facility] Comment on above: Performed By: #### L 100.0500, BTSPAT, L500.2500 ####[facility] [address] [place], [address] MCHC (RBC) [Mass/Vol] 33.7 g/dL Normal 32-36 [facility] Comment on above: Performed By: #### L 100.0500, BTSPAT, L500.2500 ####[facility] [address] [place], [address] MCV (RBC) [Entitic vol] 94.3 fL Normal 81-99 [facility] Comment on above: Performed By: #### L 100.0500, BTSPAT, L500.2500 ####[facility] [address] [place], [address] Platelet mean volume (Bld) [Entitic vol] 11.7 fL Normal 6.2-12.0 [facility] Comment on above: Performed By: #### L 100.0500, BTSPAT, L500.2500 ####[facility] [address] [place], [address] Platelets (Bld) [#/Vol] 188 10*3/uL Normal 150-450 [facility] Comment on above: Performed By: #### L 100.0500, BTSPAT, L500.2500 ####[facility] [address] [place], [address] RBC (Bld) [#/Vol] 3.52 10*6/uL Low 4.2-5.4 [facility] Comment on above: Performed By: #### L 100.0500, BTSPAT, L500.2500 ####[facility] [address] [place], [address] RDW SD 52.0 fl High 35.1-43.9 [facility] Comment on above: Performed By: #### L 100.0500, BTSPAT, L500.2500 ####[facility] [address] [place], [address] WBC (Bld) [#/Vol] 4.2 10*3/uL Low 4.4-11.[address] [facility] Comment on above: Performed By: #### L 100.0500, BTSPAT, L500.2500 ####[facility] [address] [place], [address] [facility] Telephone (INTMWS) ERI PRITCHARD ([id number]) 1940 F Date Time Provider Department 01/16/25 KIERRA SANTIAGO INTWS During your visit today, we recorded the following information about you: Kisha Irizarry RN 01/16/2025 11:57 AM Signed Pt reports she is at [facility] trying to refill metoprolol and [facility] informed her pcp discontinued this medication. Pt asking why did pcp cancel it- states she needs it. Reports she has 7 pills left. Per metoprolol on med list was discontinued by Ese Wright on 10/24/24. Pt states she has been taking it twice a day. I do not see anything in ov notes that states it should be discontinued. Please advise patient. [phone] Kierra Santiago MD 01/16/2025 8:07 PM Signed [...] heart failure, unsp*06/04/2024 Atrial fibrillation, unspecified type ([facility]) [I4*06/04/2024 S/P transmetatarsal amputation of foot, right [...] day. E (more content not included)... Normal [facility] Carbon dioxide, total [Moles /volume] in Central venous bloodOrdered By: Shaan Rojas on 01-16-2025 CO2 [Moles/Vol] 18.9 mmol/L Low 21.0-32.0 [facility] Chloride assayOrdered By: Blanco Rojas on 01-16-2025 Chloride [Moles/Vol] 100 mmol/L 98-108 [facility] Glomerular filtration rate ( GFR) estimation/1.73 sq m using serum, plasma, or whole bOrdered By: Shaan Rojas on 01-16-2025 GFR/1.73 sq M.predicted among non-blacks MDRD (S/P/Bld) [Vol rate/Area] 44 mL/min/{1.73_m2} Low >60 [facility] Comment on above: mL/min/1.73m2 CKD-EP I Creatinine Equation (2020) Hemoglobin A1c percentageOrd ered By: Michele Herring on 01-16-2025 HbA1c (Bld) [Mass fraction] 7.3 % High <=5.6 [facility] Comment on above: Normal < 5.7 % Predi abetic 5.7 - 6.4 % Diabetic >or= 6.5 % Please note range changes. Result Comment: Norm al < 5.7 % Prediabetic 5.7 - 6.4 % Diabetic >or= 6.5 % Please note range changes. Performed By: #### L 501.9998 ####[facility] [address] [place], [address] Potassium measurement (mass/ volume)Ordered By: Shaan Rojas on 01-16-2025 Potassium (Unsp spec) [Mass/Vol] 4.0 mmol/L 3.3-5.1 [facility] Comment on above: Hemolysis present, R esults could be affected. Serum creatinine measurement (mass/volume)Ordered By: Shaan Rojas on 01-16-2025 Creatinine [Mass/Vol] 1.21 mg/dL High 0.70-1.20 [facility] Serum glucose measurement (m ass/volume)Ordered By: Shaan Rojas on 01-16-2025 Glucose [Mass/Vol] 337 mg/dL High 70-[address] [facility] Serum or plasma calcium walker urement (mass/volume)Ordered By: Shaan Rojas on 01-16-2025 Calcium [Mass/Vol] 9.4 mg/dL 7.6-11.[address] [facility] Serum or plasma urea nitroge n measurement (mass/volume)Ordered By: Shaan Rojas on 01-16-2025 Urea nitrogen [Mass/Vol] 29 mg/dL High 4-19 [facility] Sodium levelOrdered By: Shaanbhavik Rojas on 01-16-2025 Sodium [Moles/Vol] 135 mmol/L 133-[address] [facility] Type AND Screen - PAT ONLYon 01-16-2025 Ab SCREEN GEL Negative Normal [facility] Comment on above: Order Comment: Reaso n for Laboratory Test PRE [id number] Performed By: #### L 100.0500, BTSPAT, L500.2500 ####[facility] [address] [place], [address] MR/PAT.ANEon 01-07-2025 MR/PAT.ANE Normal [facility] Cardiology Visit Reporton Cardiology Visit Report Normal [facility] Basic metabolic 2000 panelon 10-31-2024 Anion gap [Moles/Vol] 14 mmol/L 8 - 15 mmol/L [facility] Calcium [Mass/Vol] 10.2 mg/dL 8.5 - 10. 2 mg/dL [facility] Chloride [Moles/Vol] 101 mmol/L 98 - 10 7 mmol/L [facility] CO2 [Moles/Vol] 23 mmol/L 22 - 30 mmol/L [facility] Creatinine [Mass/Vol] 0.96 mg/dL 0.58 - 0.96 mg/dL [facility] GFR/1.73 sq M.predicted among non-blacks MDRD (S/P/Bld) [Vol rate/Area] 58 mL/min/{1.73_m2} Low - PINF [facility] Comment on above: Estimated Glomerular Filtration [...] 144 mg/dL High 74 - 99 mg/dL [facility] Comment on above: The [place] Diabete s Association (ADA) provides guidance for [...] Standards of Medical Care in Diabetes 2016, [place] Diabetes Association. Diabetes Care. 2016.39(Suppl 1). Interpretation and review of laboratory results Abnormal [facility] Potassium [Moles/Vol] 4.4 mmol/L 3.7 - 5.1 mmol/L [facility] Sodium [Moles/Vol] 138 mmol/L 136 - 144 mmol/L [facility] Urea nitrogen [Mass/Vol] 20 mg/dL 7 - 21 mg/d L [facility] MR/BMS.BVSon 10-31-2024 MR/BMS.BVS Normal [facility] Basic metabolic 2000 panelon 10-30-2024 Anion gap [Moles/Vol] 14 mmol/L Normal 8-15 [facility] Comment on above: Order Comment: Speci men Type: BLOOD SPECIMEN Ordering Facility: [facility] Address: [address] [place] [address] [place] [address] Performed By: #### 2 4321-2 #### [facility] CLIA [id number] [address] [place], [place] [id number] [place] Calcium [Mass/Vol] 10.2 mg/dL Normal 8.5-10.2 [facility] Comment on above: Order Comment: Speci men Type: BLOOD SPECIMEN Ordering Facility: [facility] Address: [address] [place] [address] Performed By: #### 2 4321-2 #### [facility] CLIA [id number] [address] [place] [address] [place] Chloride [Moles/Vol] 101 mmol/L Normal 98-107 [facility] Comment on above: Order Comment: Speci men Type: BLOOD SPECIMEN Ordering Facility: [facility] Address: [address] [place] [address] Performed By: #### 2 4321-2 #### [facility] CLIA [id number] [address] [place] [address] [place] CO2 [Moles/Vol] 23 mmol/L Normal 22-30 [facility] Comment on above: Order Comment: Speci men Type: BLOOD SPECIMEN Ordering Facility: [facility] Address: [address] [place] [address] Performed By: #### 2 4321-2 #### [facility] CLIA [id number] [address] [place] [address] [place] Creatinine [Mass/Vol] 0.96 mg/dL Normal 0.58-0.96 [facility] Comment on above: Order Comment: Speci men Type: BLOOD SPECIMEN Ordering Facility: [facility] Address: [address] [place] [address] Performed By: #### 2 4321-2 #### [facility] CLIA [id number] [address] [place] [address] [place] Creatinine and Glomerular filtration rate.predicted panel (S/P/Bld) 58 mL/min/1.73m??? Low >=60 [facility] Comment on above: Order Comment: Miguel cunningham Type: BLOOD SPECIMEN Ordering Facility: [facility] Address: [address] [place] [address] Result Comment: Kimberley mated Glomerular Filtration Rate [...] actual GFR. Performed By: #### 2 4321-2 #### [facility] CLIA [id number] [address] [place] [address] [place] Glucose [Mass/Vol] 144 mg/dL High 74-99 [facility] Comment on above: Order Comment: Miguel cunningham Type: BLOOD SPECIMEN Ordering Facility: [facility] Address: [address] [place] [address] Result Comment: The [place] Diabetes Association (ADA) provides guidance for cutoff [...] Standards of Medical Care in Diabetes 2016, Canadian Diabetes Association. Diabetes Care. 2016.39(Suppl 1). Performed By: #### 2 4321-2 #### [facility] CLIA [id number] [address] [place] [address] [place] Potassium [Moles/Vol] 4.4 mmol/L Normal 3.7-5.1 [facility] Comment on above: Order Comment: Miguel cunningham Type: BLOOD SPECIMEN Ordering Facility: [facility] Address: [address] [place] [address] Performed By: #### 2 4321-2 #### [facility] CLIA [id number] [address] [place] [address] [place] Sodium [Moles/Vol] 138 mmol/L Normal 136-144 [facility] Comment on above: Order Comment: Speci men Type: BLOOD SPECIMEN Ordering Facility: [facility] Address: [address] [place] [address] Performed By: #### 2 4321-2 #### [facility] CLIA [id number] [address] [place] [address] [place] Urea nitrogen [Mass/Vol] 20 mg/dL Normal 7-21 [facility] Comment on above: Order Comment: Speci men Type: BLOOD SPECIMEN Ordering Facility: [facility] Address: [address] [place] [address] Performed By: #### 2 4321-2 #### [facility] CLIA [id number] [address] [place] [address] [place] CBC panel Auto (Bld)on 10-30 Erythrocyte distribution width (RBC) [Ratio] 17.9 % High 11.5 - 15.0 % [facility] Hematocrit (Bld) [Volume fraction] 35.8 % Low 36.0 - 46.0 % [facility] Hemoglobin (Bld) [Mass/Vol] 11.2 g/dL Low 11.5 - 15.5 g/dL [facility] Interpretation and review of laboratory results Abnormal [facility] MCH (RBC) [Entitic mass] 31 pg 26. 0 - 34.[address] [facility] MCHC (RBC) [Mass/Vol] 31.3 g/dL 30.5 - 36.0 g/dL [facility] MCV (RBC) [Entitic vol] 99.2 fL 80.0 - 100.[address] [facility] Nucleated RBC (Bld) [#/Vol] NINF [facility] Platelet mean volume (Bld) [Entitic vol] 12.3 fL 9.0 - 12.[address] [facility] Platelets (Bld) [#/Vol] 285 10*3/uL [facility] RBC (Bld) [#/Vol] 3.61 10*6/uL Low 3.90 - 5.2 0 m/uL [facility] WBC (Bld) [#/Vol] 5.14 10*3/uL [facility] Erythrocyte distribution width (RBC) [Ratio] 17.9 % High 11.5-15.0 [facility] Comment on above: Order Comment: Speci men Type: BLOOD SPECIMEN Ordering Facility: [facility] Address: [address] [place] [address] Performed By: #### 5 8410-2 #### [facility] CLIA [id number] [address] [place] [address] [place] Hematocrit (Bld) [Volume fraction] 35.8 % Low 36.0-46.0 [facility] Comment on above: Order Comment: Speci men Type: BLOOD SPECIMEN Ordering Facility: [facility] Address: [address] [place] [address] Performed By: #### 5 8410-2 #### [facility] CLIA [id number] [address] [place] [address] [place] Hemoglobin (Bld) [Mass/Vol] 11.2 g/dL Low 11.5-15.5 [facility] Comment on above: Order Comment: Speci men Type: BLOOD SPECIMEN Ordering Facility: [facility] Address: [address] [place] [address] Performed By: #### 5 8410-2 #### [facility] CLIA [id number] [address] [place] [address] [place] MCH (RBC) [Entitic mass] 31.0 pg Normal 26.0-34.0 [facility] Comment on above: Order Comment: Speci men Type: BLOOD SPECIMEN Ordering Facility: [facility] Address: [address] [place] [address] Performed By: #### 5 8410-2 #### [facility] CLIA [id number] [address] [place] [address] [place] MCHC (RBC) [Mass/Vol] 31.3 g/dL Normal 30.5-36.0 [facility] Comment on above: Order Comment: Speci men Type: BLOOD SPECIMEN Ordering Facility: [facility] Address: [address] [place] [address] Performed By: #### 5 8410-2 #### [facility] CLIA [id number] [address] [place] [address] [place] MCV (RBC) [Entitic vol] 99.2 fL Normal 80.0-100.0 [facility] Comment on above: Order Comment: Speci men Type: BLOOD SPECIMEN Ordering Facility: [facility] Address: [address] [place] [address] Performed By: #### 5 8410-2 #### [facility] CLIA [id number] [address] [place] [address] [place] Nucleated RBC (Bld) [#/Vol] 10*3/uL Normal <0.01 [facility] Comment on above: Order Comment: Speci men Type: BLOOD SPECIMEN Ordering Facility: [facility] Address: [address] [place] [address] Performed By: #### 5 8410-2 #### [facility] CLIA [id number] [address] [place] [address] [place] Platelet mean volume (Bld) [Entitic vol] 12.3 fL Normal 9.0-12.7 [facility] Comment on above: Order Comment: Speci men Type: BLOOD SPECIMEN Ordering Facility: [facility] Address: [address] [place] [address] Performed By: #### 5 8410-2 #### [facility] CLIA [id number] [address] [place] [address] [place] Platelets (Bld) [#/Vol] 285 10*3/uL Normal 150-400 [facility] Comment on above: Order Comment: Speci men Type: BLOOD SPECIMEN Ordering Facility: [facility] Address: [address] [place] [address] Performed By: #### 5 8410-2 #### [facility] CLIA [id number] [address] [place] [address] [place] RBC (Bld) [#/Vol] 3.61 10*6/uL Low 3.90-5.20 [facility] Comment on above: Order Comment: Speci men Type: BLOOD SPECIMEN Ordering Facility: [facility] Address: [address] [place] [address] Performed By: #### 5 8410-2 #### [facility] CLIA [id number] [address] [place] [address] [place] WBC (Bld) [#/Vol] 5.14 10*3/uL Normal 3.70-11.00 [facility] Comment on above: Order Comment: Speci men Type: BLOOD SPECIMEN Ordering Facility: [facility] Address: [address] [place] [address] Performed By: #### 5 8410-2 #### [facility] CLIA [id number] [address] [place] [address] [place] Coco 10-29-2024 [facility] ERI PRITCHARD ([id number]) 1940 F Date Time Provider Department 10/29/24 KIERRA SANTIAGO INTWS During your visit today, we recorded the following information about you: Yarelis Jenkins 10/29/2024 8:43 AM Signed Eri is a patient of Kierra Santiago MD today she called [facility] regarding: Disp Refills Start End glimepiride (AMARYL) 2 mg tablet 90 tablet 3 02/23/2024 -- Sig: Take 1 tablet by mouth daily with breakfast. Check blood sugars daily, if remaining above 200 consistently in 2 to 4 weeks will increase the dose Sent to pharmacy as: glimepiride (AMARYL) 2 mg tablet Class: Normal Route: ORAL Order: [id number] E-Prescribing Status: Receipt confirmed by pharmacy (02/23/2024 10:07 AM EDT) Per patient, she is out of medication. However, she stated that she called [facility] and was told that they cannot [...] non-symptom based questions: Thank you for calling [facility], your call will be returned within [...] hypothyroidism [E03 (more content not included)... Normal [facility] CNOVon 10-24-2024 CNOV Office Visit (INTMWS ) ERI PRITCHARD ([id number]) 1940 F Date Time Provider Department 10/24/24 10:00 AM KIERRA SANTIAGO INTMWS During your visit today, we recorded the following information about you: Pulse Blood pressure Weight Height 72/minute 120/60 67.3 kg 1.588 m Kierra Santiago MD 01/16/2025 8:04 PM Addendum This note was created using NoteWriter. Subjective rEi Pritchard is a 84 year old female. [...] # Fac (more content not included)... Normal [facility] Absolute lymphocyte countOrd ered By: Shaan Monae on 10-10-2024 Lymphocytes Auto (Unsp spec) [#/Vol] 0.72 10*3/uL Low 0.83-4.51 [facility] Absolute neutrophil countOrd ered By: Shaan Monae on 10-10-2024 Neutrophils (Bld) [#/Vol] 4.6 10*3/uL 2.0-7.7 [facility] Anion gap in Serum or Plasma Ordered By: Shaan Monae on 10-10-2024 Anion gap [Moles/Vol] 11 mmol/L 09-13 [facility] Automated lymphocyte count a s percentage of total leukocytesOrdered By: Shaan Monae on 10-10-2024 Lymphocytes/100 WBC Auto (Unsp spec) 12.0 % Low - [facility] BUN/creatinine ratioOrdered By: Shaan Monae on 10-10-2024 Urea nitrogen/Creatinine [Mass ratio] 15.4 mg/mg - [facility] Basic Metabolic Profile (BMP )on 10-10-2024 BUN/CRE 15.4 RATIO Normal - [facility] Comment on above: Performed By: #### L 500.2500, L100.0100 ####[facility] [address] [place], [address] Calcium [Mass/Vol] 8.9 mg/dL Normal 7.6-11.[address] [facility] Comment on above: Performed By: #### L 500.2500, L100.0100 ####[facility] [address] [place], [address] Chloride [Moles/Vol] 106 mmol/L Normal 98-108 [facility] Comment on above: Performed By: #### L 500.2500, L100.0100 ####[facility] [address] [place], [address] CO2 [Moles/Vol] 22.2 mmol/L Normal 21.0-32.0 [facility] Comment on above: Performed By: #### L 500.2500, L100.0100 ####[facility] [address] [place], [address] Creatinine [Mass/Vol] 0.93 mg/dL Normal 0.70-1.20 [facility] Comment on above: Performed By: #### L 500.2500, L100.0100 ####[facility] [address] [place], [address] ECRCL 41.88 ml/min Low 50-250 [facility] Comment on above: Performed By: #### L 500.2500, L100.0100 ####[facility] [address] [place], [address] GAP 11 Normal 5-15 [facility] Comment on above: Performed By: #### L 500.2500, L100.0100 ####[facility] [address] [place], [address] GFR/1.73 sq M.predicted among non-blacks MDRD (S/P/Bld) [Vol rate/Area] 60 mL/min/{1.73_m2} Normal >60 [facility] Comment on above: Result Comment: mL/m in/1.73m2 CKD-EPI Creatinine Equation (2020) Performed By: #### L 500.2500, L100.0100 ####[facility] [address] [place], [address] Glucose [Mass/Vol] 129 mg/dL High 70-[address] [facility] Comment on above: Performed By: #### L 500.2500, L100.0100 ####[facility] [address] [place], [address] Potassium [Moles/Vol] 3.5 mmol/L Normal 3.3-5.1 [facility] Comment on above: Performed By: #### L 500.2500, L100.0100 ####[facility] [address] [place], [address] Sodium [Moles/Vol] 139 mmol/L Normal 133-[address] [facility] Comment on above: Performed By: #### L 500.2500, L100.0100 ####[facility] [address] [place], [address] Urea nitrogen [Mass/Vol] 14 mg/dL Normal 4-19 [facility] Comment on above: Performed By: #### L 500.2500, L100.0100 ####[facility] [address] [place], [address] Basophil percentageOrdered B y: Shaan Monae on 10-10-2024 Basophils/100 WBC (Bld) 0.3 % 0-[address] [facility] Bedside Glucoseon 10-10-2024 FINGERSTICK GLU 126 mg/dL High 74-106 [facility] Comment on above: Result Comment: LEVI GEMENT OF PATIENT CARE PER NURSING PROTOCOL Performed By: #### L 501.080 ####[facility] [address] [place], [address] FINGERSTICK GLU 129 mg/dL High 74-106 [facility] Comment on above: Result Comment: LEVI GEMENT OF PATIENT CARE PER NURSING PROTOCOL Performed By: #### L 501.080 ####[facility] [address] [place], [address] FINGERSTICK GLU 133 mg/dL High 74-106 [facility] Comment on above: Result Comment: LEVI GEMENT OF PATIENT CARE PER NURSING PROTOCOL Performed By: #### L 501.080 ####[facility] [address] [place], [address] Blood manual differential co mment interpretation (narrative result)Ordered By: Shaan Monae on 10-10-2024 Manual differential comment Warren (Bld) [Interp] SCANNED [facility] Blood polychromasia detectio n by light microscopyOrdered By: Shaan Monae on 10-10-2024 Polychromasia LM Ql (Bld) 1+ [facility] CBC W/Diff, Automatedon 09-30 ACANTHOCYTE RARE Normal [facility] Comment on above: Performed By: #### L 500.2500, L100.0100 ####[facility] [address] [place], [address] Anisocytosis Ql (Bld) 2+ Normal [facility] Comment on above: Performed By: #### L 500.2500, L100.0100 ####[facility] [address] [place], [address] BASO STIPPLING 1+ Normal [facility] Comment on above: Performed By: #### L 500.2500, L100.0100 ####[facility] [address] [place], [address] OVALOCYTE 1+ Normal [facility] Comment on above: Performed By: #### L 500.2500, L100.0100 ####[facility] [address] [place], [address] PLT MORPH ADEQ Normal [facility] Comment on above: Performed By: #### L 500.2500, L100.0100 ####[facility] [address] [place], [address] POLYCHROMASIA 1+ Normal [facility] Comment on above: Performed By: #### L 500.2500, L100.0100 ####[facility] [address] [place], [address] SMEAR COMMENT SCANNED Normal [facility] Comment on above: Performed By: #### L 500.2500, L100.0100 ####[facility] [address] [place], [address] Carbon dioxide, total [Moles /volume] in Central venous bloodOrdered By: Shaan Monae on 10-10-2024 CO2 [Moles/Vol] 22.2 mmol/L 21.0-32.0 [facility] Chloride assayOrdered By: Blanco Monae on 10-10-2024 Chloride [Moles/Vol] 106 mmol/L 98-108 [facility] Eosinophil percentageOrdered By: Shaan Monae on 10-10-2024 Eosinophils/100 WBC (Bld) 1.3 % 0-5 [facility] Erythrocyte basophilic stipp ling detectionOrdered By: Shaan Monae on 10-10-2024 Basophilic stippling LM Ql (Bld) 1+ [facility] Erythrocyte distribution wid th ratioOrdered By: Shaan Monae on 10-10-2024 Erythrocyte distribution width (RBC) [Ratio] 21.8 % High 11.6-14.6 [facility] Erythrocyte distribution wid th standard deviationOrdered By: Shaan Monae on 10-10-2024 Erythrocyte distribution width (RBC) [Ratio] 75.9 fl High 35.1-43.9 [facility] Glomerular filtration rate ( GFR) estimation/1.73 sq m using serum, plasma, or whole bOrdered By: Shaan Monae on 10-10-2024 GFR/1.73 sq M.predicted among non-blacks MDRD (S/P/Bld) [Vol rate/Area] 60 mL/min/{1.73_m2} >60 [facility] Comment on above: mL/min/1.73m2 CKD-EP I Creatinine Equation (2020) [facility] deOrdered By: Shaan Monae on 10-10-2024 Glucose [Mass/Vol] 126 mg/dL High 74-[address] [facility] Comment on above: MANAGEMENT OF PATIEN T CARE PER NURSING PROTOCOL Hematocrit Auto (Bld) [Volum e fraction]Ordered By: Shaan Monae on 10-10-2024 Hematocrit (Bld) [Volume fraction] 24.1 % Low 37-47 [facility] Hemoglobin measurementOrdere d By: Shaan Monae on 10-10-2024 Hemoglobin (Bld) [Mass/Vol] 7.8 g/dL Low 12.0-15.0 [facility] Immature granulocytes/100 WB C Auto (Bld)Ordered By: Shaan Mnoae on 10-10-2024 Immature granulocytes/100 WBC (Bld) 0.300 % 0.0-0.9 [facility] Comment on above: IG% - Immature Granu locytes (promyelocytes, myelocytes and metamyelocytes) > 1% indicates that a LEFT SHIFT is Present. Laboratory - Hematology and Cell countsOrdered By: Shaan Monae on 10-10-2024 Anisocytosis Ql (Bld) 2+ [facility] MCV (mean corpuscular volume ) determinationOrdered By: Shaan Monae on 10-10-2024 MCV (RBC) [Entitic vol] 94.9 fL 81-[address] [facility] Mean corpuscular hemoglobin (MCH) determinationOrdered By: Shaan Monae on 10-10-2024 MCH (RBC) [Entitic mass] 30.7 pg 27.0-32.0 [facility] Mean corpuscular hemoglobin concentration (MCHC) determinationOrdered By: Shaan Monae on 10-10-2024 MCHC (RBC) [Mass/Vol] 32.4 g/dL 32-36 [facility] Mean platelet volume determi nationOrdered By: Shaan Monae on 10-10-2024 Platelet mean volume (Bld) [Entitic vol] 10.2 fL 6.2-12.0 [facility] Monocyte percentageOrdered B y: Shaan Monae on 10-10-2024 Monocytes/100 WBC (Bld) 9.6 % 0-[address] [facility] Neutrophil percentageOrdered By: Shaan Monae on 10-10-2024 Neutrophils/100 WBC (Bld) 76.5 % High 47-70 [facility] Nucleated red blood cell per centageOrdered By: Shaan Monae on 10-10-2024 Nucleated RBC/100 WBC (Bld) [Ratio] 0.3 % 0-5 [facility] Ovalocyte detectionOrdered B y: Shaan Monae on 10-10-2024 Ovalocytes LM Ql (Bld) 1+ [facility] Platelet countOrdered By: Blanco Monae on 10-10-2024 Platelets (Bld) [#/Vol] 206 10*3/uL 150-450 [facility] Platelet morphologyOrdered B y: Shaan Monae on 10-10-2024 Platelet morphology finding Nom (Bld) ADEQ [facility] Potassium measurement (mass/ volume)Ordered By: Shaan Monae on 10-10-2024 Potassium (Unsp spec) [Mass/Vol] 3.5 mmol/L 3.3-5.1 [facility] RBC Auto (Bld) [#/Vol]Ordere d By: Shaan Monae on 10-10-2024 RBC (Bld) [#/Vol] 2.54 10*6/uL Low 4.2-5.4 [facility] Serum creatinine measurement (mass/volume)Ordered By: Shaan Monae on 10-10-2024 Creatinine [Mass/Vol] 0.93 mg/dL 0.70-1.20 [facility] Serum glucose measurement (m ass/volume)Ordered By: Shaan Monae on 10-10-2024 Glucose [Mass/Vol] 129 mg/dL High 70-[address] [facility] Serum or plasma calcium walker urement (mass/volume)Ordered By: Shaan Monae on 10-10-2024 Calcium [Mass/Vol] 8.9 mg/dL 7.6-11.[address] [facility] Serum or plasma urea nitroge n measurement (mass/volume)Ordered By: Shaan Monae on 10-10-2024 Urea nitrogen [Mass/Vol] 14 mg/dL 4-19 [facility] Sodium levelOrdered By: Shaan Monae on 10-10-2024 Sodium [Moles/Vol] 139 mmol/L 133-[address] [facility] White blood cell (WBC) count Ordered By: Shaan Monae on 10-10-2024 WBC (Bld) [#/Vol] 6.0 10*3/uL 4.4-11.[address] [facility] 12 Lead EKGon 10-09-2024 12 Lead EKG Normal [facility] Activated partial thrombopla stin time (aPTT) in platelet poor plasma by coagulation aOrdered By: Enrique Browne on 10-09-2024 aPTT Coag (PPP) [Time] 43.4 s High 24.1-36.2 [facility] Basic Metabolic Profile (BMP )on 10-09-2024 BUN/CRE 20.5 RATIO High 10-20 [facility] Comment on above: Performed By: #### L 500.2500, L300.4310, L100.0100, L300.3900 ####[facility] [address] [place], [address] Calcium [Mass/Vol] 9.0 mg/dL Normal 7.6-11.[address] [facility] Comment on above: Performed By: #### L 500.2500, L300.4310, L100.0100, L300.3900 ####[facility] [address] [place], [address] Chloride [Moles/Vol] 108 mmol/L Normal 98-108 [facility] Comment on above: Performed By: #### L 500.2500, L300.4310, L100.0100, L300.3900 ####[facility] [address] [place], [address] CO2 [Moles/Vol] 20.2 mmol/L Low 21.0-32.0 [facility] Comment on above: Performed By: #### L 500.2500, L300.4310, L100.0100, L300.3900 ####[facility] [address] [place], [address] Creatinine [Mass/Vol] 0.98 mg/dL Normal 0.70-1.20 [facility] Comment on above: Performed By: #### L 500.2500, L300.4310, L100.0100, L300.3900 ####[facility] [address] [place], [address] ECRCL 39.67 ml/min Low 50-250 [facility] Comment on above: Performed By: #### L 500.2500, L300.4310, L100.0100, L300.3900 ####[facility] [address] [place], [address] GAP 12 Normal 5-15 [facility] Comment on above: Performed By: #### L 500.2500, L300.4310, L100.0100, L300.3900 ####[facility] [address] [place], [address] GFR/1.73 sq M.predicted among non-blacks MDRD (S/P/Bld) [Vol rate/Area] 57 mL/min/{1.73_m2} Low >60 [facility] Comment on above: Result Comment: mL/m in/1.73m2 CKD-EPI Creatinine Equation (2020) Performed By: #### L 500.2500, L300.4310, L100.0100, L300.3900 ####[facility] [address] [place], [address] Glucose [Mass/Vol] 132 mg/dL High 70-[address] [facility] Comment on above: Performed By: #### L 500.2500, L300.4310, L100.0100, L300.3900 ####[facility] [address] [place], [address] Potassium [Moles/Vol] 3.6 mmol/L Normal 3.3-5.1 [facility] Comment on above: Performed By: #### L 500.2500, L300.4310, L100.0100, L300.3900 ####[facility] [address] [place], [address] Sodium [Moles/Vol] 141 mmol/L Normal 133-[address] [facility] Comment on above: Performed By: #### L 500.2500, L300.4310, L100.0100, L300.3900 ####[facility] [address] [place], [address] Urea nitrogen [Mass/Vol] 20 mg/dL High 4-19 [facility] Comment on above: Performed By: #### L 500.2500, L300.4310, L100.0100, L300.3900 ####[facility] [address] [place], [address] Bedside Glucoseon 10-09-2024 FINGERSTICK GLU 132 mg/dL High 74-106 [facility] Comment on above: Result Comment: LEVI GEMENT OF PATIENT CARE PER NURSING PROTOCOL Performed By: #### L 501.080 ####[facility] [address] [place], [address] FINGERSTICK GLU 123 mg/dL High 74-106 [facility] Comment on above: Result Comment: LEVI GEMENT OF PATIENT CARE PER NURSING PROTOCOL Performed By: #### L 501.080 ####[facility] [address] [place], [address] FINGERSTICK GLU 121 mg/dL High 74-106 [facility] Comment on above: Result Comment: LEVI GEMENT OF PATIENT CARE PER NURSING PROTOCOL Performed By: #### L 501.080 ####[facility] [address] [place], [address] FINGERSTICK GLU 103 mg/dL Normal 74-106 [facility] Comment on above: Result Comment: LEVI GEMENT OF PATIENT CARE PER NURSING PROTOCOL Performed By: #### L 501.080 ####[facility] [address] [place], [address] CBC W/Diff, Automatedon - MACROCYTOSIS 1+ Normal [facility] Comment on above: Performed By: #### L 500.2500, L300.4310, L100.0100, L300.3900 ####[facility] [address] [place], [address] MICROCYTIC 1+ Normal [facility] Comment on above: Performed By: #### L 500.2500, L300.4310, L100.0100, L300.3900 ####[facility] [address] [place], [address] Anisocytosis Ql (Bld) 2+ Normal [facility] Comment on above: Performed By: #### L 500.2500, L300.4310, L100.0100, L300.3900 ####[facility] [address] [place], [address] POLYCHROMASIA 1+ Normal [facility] Comment on above: Performed By: #### L 500.2500, L300.4310, L100.0100, L300.3900 ####[facility] [address] [place], [address] SMEAR COMMENT SCANNED Normal [facility] Comment on above: Performed By: #### L 500.2500, L300.4310, L100.0100, L300.3900 ####[facility] [address] [place], [address] EGD Reporton 10-09-2024 EGD Report Normal [facility] Electrocardiogram reportOrde red By: Roly Herrera on 10-09-2024 EKG study [facility] Cardiovascular Services [address] [place] [place] [address] 12 Lead EKG 10/08/24 0758 MR#: [id number] Acct: [id number] Name: ERI PRITCHARD Rep #:[id number] : 1940 83 From: Roly trejo MD Attending Dr: Dr. Shaan Monae, DO Status: ADM IN Ordering Dr: Enrique Browne MD Date: 09/30 Location: U Sex: F C Admitted: 10/07/24 [...] in Inferior leads Confirmed by Roly Herrera ([id number]), can filling and closing machine tender CHINA ADAMES ([id number]) on 10/09/2024 11:09:08 AM Referred By: JAVIER Confirmed By: Roly Herrera 10/09/241108 Date _ Roly Herrera MD CC: Dr. Enrique Browne MD; Dr. Shaan Monae DO; Dr. Kierra Santiago MD ~ Signed [facility] Work Phone: EKG study [facility] Cardiovascular Services [address] [place] [address] 12 Lead EKG 10/09/24 0416 MR#: [id number] Acct: [id number] Name: ERI PRITCHARD Rep #:[id number] : 1940 83 From: Roly trejo MD Attending Dr: Dr. Shaan Monae DO Status: ADM IN Ordering Dr: Roly Herrera MD Date: 10/08/24 Location: [facility] Sex: F C Admitted: 10/07/24 Test [...] DATA IS UNCONFIRMED Confirmed by Roly Herrera ([id number]), can filling and closing machine tender CHINA ADAMES ([id number]) on 10/09/2024 11:08:14 AM Referred By: TONI Confirmed By: Roly Herrera 10/09/24 1108 Date _ Roly Herrera MD CC: Dr. Shaan Monae DO; Dr. Kierra Santiago MD; Dr. Roly Herrera MD ~ Signed [facility] Work Phone: [phone] EKG study [facility] Cardiovascular Services [address] [place] [address] 12 Lead EKG 10/07/242128 MR#: [id number] Acct: [id number] Name: ERI PRITCHARD Rep #:[id number] : 1940 83 From: Roly trejo MD Attending Dr: Dr. Shaan Monae DO Status: ADM IN Ordering Dr: Matheus Fabian MD Date: 10/07/24 Location: [facility] Sex: F C Admitted: 10/07/24 Test [...] ischemia Abnormal ECG Confirmed by Roly Herrera ([id number]), can filling and closing machine tender CHINA ADAMES ([id number]) on 10/09/2024 6:16:14 AM Referred By: Confirmed By: Roly Herrera 10/09/24 0616 Date _ Roly Herrera MD CC: Dr. Matheus Fabian MD; Dr. Shaan Monae DO; Dr. Kierra Santiago MD ~ Signed [facility] Work Phone: [phone] International normalized rat io (INR) calculationOrdered By: Enrique Browne on 10-09-2024 INR Coag (Bld) [Relative time] 1.9 {INR} [facility] MR/POSTOP.ANEon 10-09-2024 MR/POSTOP.ANE Normal [facility] MR/TQLTVAQQ9mt 10-09-2024 MR/POSTOPAN2 Normal [facility] Macrocytes detectionOrdered By: Enrique Browne on 10-09-2024 Macrocytes Ql (Bld) 1+ [facility] Partial Thromboplast Timeon 10-09-2024 aPTT Coag (Bld) [Time] 43.4 s High 24.1-36.2 [facility] Comment on above: Performed By: #### L 500.2500, L300.4310, L100.0100, L300.3900 ####[facility] [address] [place], [address] Prothrombin Time w/INRon INR Coag (PPP) [Relative time] 1.9 {INR} Normal [facility] Comment on above: Performed By: #### L 500.2500, L300.4310, L100.0100, L300.3900 ####[facility] [address] [place], [address] PT Coag (PPP) [Time] 22.2 s High 11.7-14.9 [facility] Comment on above: Performed By: #### L 500.2500, L300.4310, L100.0100, L300.3900 ####[facility] [address] [place], [address] Prothrombin timeOrdered By: Enrique Browne on 10-09-2024 PT Coag (PPP) [Time] 22.2 s High 11.7-14.9 [facility] 12 Lead EKGon 10-08-2024 12 Lead EKG Normal [facility] 12 Lead EKG Normal [facility] Absolute lymphocyte countOrd ered By: Kelsie Muñoz on 10-08-2024 Lymphocytes Auto (Unsp spec) [#/Vol] 1.12 10*3/uL 0.83-4.51 [facility] Absolute neutrophil countOrd ered By: Kelsie Muñoz on 10-08-2024 Neutrophils (Bld) [#/Vol] 5.3 10*3/uL 2.0-7.7 [facility] Anion gap in Serum or Plasma Ordered By: Kelsie Muñoz on 10-08-2024 Anion gap [Moles/Vol] 14 mmol/L 5-15 [facility] Automated lymphocyte count a s percentage of total leukocytesOrdered By: White on 10-08-2024 Lymphocytes/100 WBC Auto (Unsp spec) 15.5 % Low 19-41 [facility] BUN/creatinine ratioOrdered By: White on 10-08-2024 Urea nitrogen/Creatinine [Mass ratio] 29.0 mg/mg High 10-20 [facility] Basophil percentageOrdered B y: White on 10-08-2024 Basophils/100 WBC (Bld) 0.4 % 0-[address] [facility] Bedside Glucoseon 10-08-2024 FINGERSTICK GLU 126 mg/dL High 74-106 [facility] Comment on above: Result Comment: LEVI GEMENT OF PATIENT CARE PER NURSING PROTOCOL Performed By: #### L 501.080 ####[facility] [address] [facility] [address] FINGERSTICK GLU 143 mg/dL High 74-106 [facility] Comment on above: Result Comment: LEVI GEMENT OF PATIENT CARE PER NURSING PROTOCOL Performed By: #### L 501.080 ####[facility] [address] [place], [address] FINGERSTICK GLU 96 mg/dL Normal -106 [facility] Comment on above: Result Comment: LEVI GEMENT OF PATIENT CARE PER NURSING PROTOCOL Performed By: #### L 501.080 ####[facility] [address] [facility] [address] Bilirubin, totalOrdered By: on 10-08-2024 Bilirubin [Mass/Vol] 0.55 mg/dL 0.00-1.30 [facility] Blood polychromasia detectio n by light microscopyOrdered By: White on 10-08-2024 Polychromasia LM Ql (Bld) 1+ [facility] CBC W/Diff, Automatedon 06- Anisocytosis Ql (Bld) 1+ Normal [facility] Comment on above: Performed By: #### L 500.4050, L300.3900, L100.0100, L500.4100 ####[facility] [address] [place], [address] HYPOCHROMASIA 1+ Normal [facility] Comment on above: Performed By: #### L 500.4050, L300.3900, L100.0100, L500.4100 ####[facility] [address] [place], [address] POLYCHROMASIA 1+ Normal [facility] Comment on above: Performed By: #### L 500.4050, L300.3900, L100.0100, L500.4100 ####[facility] [address] [place], [address] Calculated very low density lipoprotein (VLDL) cholesterol measurementOrdered By: Kelsie Muñoz on 10-08-2024 Calculated very low density lipoprotein (VLDL) cholesterol measurement 72 mg/dL High 5-40 [facility] Carbon dioxide, total [Moles /volume] in Central venous bloodOrdered By: Kelsie Muñoz on 10-08-2024 CO2 [Moles/Vol] 19.3 mmol/L Low 21.0-32.0 [facility] Chloride assayOrdered By: Bharti Muñoz on 10-08-2024 Chloride [Moles/Vol] 106 mmol/L 98-108 [facility] Comprehensive Metabolic Prof ilon 10-08-2024 Albumin [Mass/Vol] 3.9 g/dL Normal 3.4-4.[address] [facility] Comment on above: Performed By: #### L 500.4050, L300.3900, L100.0100, L500.4100 ####[facility] [address] [place], [address] Albumin/Globulin [Mass ratio] 1.5 {ratio} Normal 0.9-2.4 [facility] Comment on above: Performed By: #### L 500.4050, L300.3900, L100.0100, L500.4100 ####[facility] [address] [place], [address] ALK PHOS 48 U/L Normal 35-104 [facility] Comment on above: Performed By: #### L 500.4050, L300.3900, L100.0100, L500.4100 ####[facility] [address] [place], [address] ALT [Catalytic activity/Vol] 11 U/L Normal <=34 [facility] Comment on above: Performed By: #### L 500.4050, L300.3900, L100.0100, L500.4100 ####[facility] [address] [place], [address] AST [Catalytic activity/Vol] 20 U/L Normal <=31 [facility] Comment on above: Performed By: #### L 500.4050, L300.3900, L100.0100, L500.4100 ####[facility] [address] [place], [address] Bilirubin [Mass/Vol] 0.55 mg/dL Normal 0.00-1.30 [facility] Comment on above: Performed By: #### L 500.4050, L300.3900, L100.0100, L500.4100 ####[facility] [address] [place], [address] BUN/CRE 29.0 RATIO High 10-20 [facility] Comment on above: Performed By: #### L 500.4050, L300.3900, L100.0100, L500.4100 ####[facility] [address] [place], [address] Calcium [Mass/Vol] 9.1 mg/dL Normal 7.6-11.[address] [facility] Comment on above: Performed By: #### L 500.4050, L300.3900, L100.0100, L500.4100 ####[facility] [address] [place], [address] Chloride [Moles/Vol] 106 mmol/L Normal 98-108 [facility] Comment on above: Performed By: #### L 500.4050, L300.3900, L100.0100, L500.4100 ####[facility] [address] [place], [address] CO2 [Moles/Vol] 19.3 mmol/L Low 21.0-32.0 [facility] Comment on above: Performed By: #### L 500.4050, L300.3900, L100.0100, L500.4100 ####[facility] [address] [place], [address] Creatinine [Mass/Vol] 1.25 mg/dL High 0.70-1.20 [facility] Comment on above: Performed By: #### L 500.4050, L300.3900, L100.0100, L500.4100 ####[facility] [address] [place], [address] ECRCL 31.37 ml/min Low 50-250 [facility] Comment on above: Performed By: #### L 500.4050, L300.3900, L100.0100, L500.4100 ####[facility] [address] [place], [address] GAP 14 Normal 5-15 [facility] Comment on above: Performed By: #### L 500.4050, L300.3900, L100.0100, L500.4100 ####[facility] [address] [place], [address] GFR/1.73 sq M.predicted among non-blacks MDRD (S/P/Bld) [Vol rate/Area] 43 mL/min/{1.73_m2} Low >60 [facility] Comment on above: Result Comment: mL/m in/1.73m2 CKD-EPI Creatinine Equation (2020) Performed By: #### L 500.4050, L300.3900, L100.0100, L500.4100 ####[facility] [address] [place], [address] Globulin (S) [Mass/Vol] 2.7 g/dL Normal 2.2-4.2 [facility] Comment on above: Performed By: #### L 500.4050, L300.3900, L100.0100, L500.4100 ####[facility] [address] [place], [address] Glucose [Mass/Vol] 121 mg/dL High 70-[address] [facility] Comment on above: Performed By: #### L 500.4050, L300.3900, L100.0100, L500.4100 ####[facility] [address] [place], [address] Potassium [Moles/Vol] 3.7 mmol/L Normal 3.3-5.1 [facility] Comment on above: Performed By: #### L 500.4050, L300.3900, L100.0100, L500.4100 ####[facility] [address] [place], [address] Sodium [Moles/Vol] 140 mmol/L Normal 133-[address] [facility] Comment on above: Performed By: #### L 500.4050, L300.3900, L100.0100, L500.4100 ####[facility] [address] [place], [address] T PROT 6.6 g/dL Normal 5.9-8.4 [facility] Comment on above: Performed By: #### L 500.4050, L300.3900, L100.0100, L500.4100 ####[facility] [address] [place], [address] Urea nitrogen [Mass/Vol] 36 mg/dL High 4-19 [facility] Comment on above: Performed By: #### L 500.4050, L300.3900, L100.0100, L500.4100 ####[facility] [address] [place], [address] Consultation - Cardiologyon 10-08-2024 Consultation - Cardiology Normal [facility] Electrocardiogram reportOrde red By: Roly Herrera on 10-08-2024 EKG study [facility] Cardiovascular Services [address] [place] [address] 12 Lead EKG 10/08/24 0527 MR#: [id number] Acct: [id number] Name: ERI PRITCHARD Rep #:[id number] : 1940 83 From: Roly trejo MD Attending Dr: Dr. Shaan Monae DO Status: ADM IN Ordering Dr: Kelsie Muñoz MD Date: 10/08/24 Location: [facility] Sex: F C Admitted: 10/07/24 Test [...] DATA IS UNCONFIRMED Confirmed by Roly Herrera ([id number]), can filling and closing machine tender CHINA ADAMES ([id number]) on 10/08/2024 9:09:30 AM Referred By: TONI Confirmed By: Roly Herrera 10/08/2409 Date _ Roly Herrera MD CC: Dr. Kelsie Muñoz MD; Dr. Shaan Monae DO; Dr. Kierra Santiago MD ~ Signed [facility] Work Phone: Eosinophil percentageOrdered By: Kelsie Muñoz on 10-08-2024 Eosinophils/100 WBC (Bld) 0.8 % 0-5 [facility] Erythrocyte distribution wid th ratioOrdered By: Kelsie Muñoz on 10-08-2024 Erythrocyte distribution width (RBC) [Ratio] 21.8 % High 11.6-14.6 [facility] Erythrocyte distribution wid th standard deviationOrdered By: Kelsie Muñoz on 10-08-2024 Erythrocyte distribution width (RBC) [Ratio] 70.7 fl High 35.1-43.9 [facility] Glomerular filtration rate ( GFR) estimation/1.73 sq m using serum, plasma, or whole bOrdered By: Kelsie Muñoz on 10-08-2024 GFR/1.73 sq M.predicted among non-blacks MDRD (S/P/Bld) [Vol rate/Area] 43 mL/min/{1.73_m2} Low >60 [facility] Comment on above: mL/min/1.73m2 CKD-EP I Creatinine Equation (2020) [facility] at [facility] deOrdered By: Shaan Monae on 10-08-2024 Glucose [Mass/Vol] 143 mg/dL High 74-[address] [facility] Comment on above: MANAGEMENT OF PATIEN T CARE PER NURSING PROTOCOL HH, Hemoglobin AND Hematocri ton 10-08-2024 HCT Normal 37-47 [facility] Comment on above: Result Comment: DUPL ICATE. DRAWN AT 0920 Performed By: #### L 300.3900, L100.0600 ####[facility] [address] [place], [address] HGB Normal 12.0-15.0 [facility] Comment on above: Result Comment: DUPL ICATE. DRAWN AT 0920 Performed By: #### L 300.3900, L100.0600 ####[facility] [address] [place], [address] Hematocrit Auto (Bld) [Volum e fraction]Ordered By: Kelsie Muñoz on 10-08-2024 Hematocrit (Bld) [Volume fraction] 25.2 % Low 37-47 [facility] Hemoglobin measurementOrdere d By: Kelsie Muñoz on 10-08-2024 Hemoglobin (Bld) [Mass/Vol] 8.2 g/dL Low 12.0-15.0 [facility] Hypochromatic red blood cell detectionOrdered By: Kelsie Muñoz on 10-08-2024 Hypochromia Ql (Bld) 1+ [facility] Immature granulocytes/100 WB C Auto (Bld)Ordered By: Kelsie Muñoz on 10-08-2024 Immature granulocytes/100 WBC (Bld) 0.600 % 0.0-0.9 [facility] Comment on above: IG% - Immature Granu locytes (promyelocytes, myelocytes and metamyelocytes) > 1% indicates that a LEFT SHIFT is Present. International normalized rat io (INR) calculationOrdered By: Kelsie Muñoz on 10-08-2024 INR Coag (Bld) [Relative time] 1.9 {INR} [facility] L499.0042on 10-08-2024 Trop T High Sen 42 ng/L High <=14 [facility] Comment on above: Performed By: #### L 499.0042 ####[facility] [address] [facility] [place], [place], [address] L499.0043on 10-08-2024 Trop T High Sen 50 ng/L High <=14 [facility] Comment on above: Performed By: #### L 499.0043 ####[facility] [address] [facility] [place], [place], [address] LDL calc ser/plasOrdered By: Kelsie Muñoz on 10-08-2024 Cholesterol in LDL [Mass/Vol] 64 mg/dL [facility] Comment on above: Unmgemxkwt=996-428 m g/dL & Higher Arhj=532 mg/dL or greater Laboratory - Chemistry and C hemistry - challengeOrdered By: Kelsie Muñoz on 10-08-2024 AST [Catalytic activity/Vol] 20 U/L <32 [facility] Laboratory - Hematology and Cell countsOrdered By: Kelsie Muñoz on 10-08-2024 Anisocytosis Ql (Bld) 1+ [facility] Lipid Profileon 10-08-2024 CHOL:HDL 6.48 Normal [facility] Comment on above: Performed By: #### L 500.4050, L300.3900, L100.0100, L500.4100 ####[facility] [address] [place], [address] Cholesterol [Mass/Vol] 160 mg/dL Normal <=200 [facility] Comment on above: Result Comment: Chol esterol level, Desirable <200 mg/dLBorderline high cholesterol 200-239 mg/dLHigh cholesterol >=240 mg/dLRecommendations of the NCEP Adult Treatment Panel for thefollowing risk-cutoff thresholds for the [place] [facility]. Performed By: #### L 500.4050, L300.3900, L100.0100, L500.4100 ####[facility] [address] [place], [address] Cholesterol in HDL [Mass/Vol] 25 mg/dL Low [facility] Comment on above: Result Comment: Delphine onal Cholesterol Education Program (NCEP) guidelines:<40 mg/dL: Low HDL-cholesterol (major risk factor for CHD)>= 60 mg/dL: High HDL-cholesterol (negative risk factor forCHD)HDL-cholesterol is affected by a number of factors, e.g.smoking, exercise, hormones, sex and age. Performed By: #### L 500.4050, L300.3900, L100.0100, L500.4100 ####[facility] [address] [place], [address] Cholesterol in LDL [Mass/Vol] 64 mg/dL Normal [facility] Comment on above: Result Comment: Bord paecjp=650-512 mg/dL Higher Fekx=597 mg/dL or greater Performed By: #### L 500.4050, L300.3900, L100.0100, L500.4100 ####[facility] [address] [place], [address] Cholesterol in VLDL [Mass/Vol] 72 mg/dL High 5-40 [facility] Comment on above: Performed By: #### L 500.4050, L300.3900, L100.0100, L500.4100 ####[facility] [address] [place], [address] Triglyceride [Mass/Vol] 359 mg/dL High [facility] Comment on above: Result Comment: The drugs N-Acetylcysteine and Metamizole may falselydepress this assay.Normal range: <150 mg/dLBorderline High: 150-199 mg/dLHigh: 200-499 mg/dLVery High: >500 mg/dL Performed By: #### L 500.4050, L300.3900, L100.0100, L500.4100 ####[facility] [address] [place], [address] MCV (mean corpuscular volume ) determinationOrdered By: Kelsie Muñoz on 10-08-2024 MCV (RBC) [Entitic vol] 94.0 fL 81-99 [facility] Comment on above: Delta: 106.7 on MR/CON.PCM.GIon 10-08-2024 MR/CON.PCM.GI Normal [facility] Magnesiumon 10-08-2024 Magnesium [Mass/Vol] 2.0 mg/dL Normal 1.5-2.2 [facility] Comment on above: Order Comment: Comme nts: may add to ED labs Performed By: #### L 501.5200 ####[facility] [address] [place], [address] Mean corpuscular hemoglobin (MCH) determinationOrdered By: Kelsie Muoñz on 10-08-2024 MCH (RBC) [Entitic mass] 30.6 pg 27.0-32.0 [facility] Mean corpuscular hemoglobin concentration (MCHC) determinationOrdered By: Kelsie Muñoz on 10-08-2024 MCHC (RBC) [Mass/Vol] 32.5 g/dL 32-36 [facility] Mean platelet volume determi nationOrdered By: Kelsie Muñoz on 10-08-2024 Platelet mean volume (Bld) [Entitic vol] 9.9 fL 6.2-12.0 [facility] Monocyte percentageOrdered B y: Kelsie Muñoz on 10-08-2024 Monocytes/100 WBC (Bld) 9.5 % 0-[address] [facility] Neutrophil percentageOrdered By: Kelsie Toni on 10-08-2024 Neutrophils/100 WBC (Bld) 73.2 % High 47-70 [facility] Nucleated red blood cell per centageOrdered By: Kelsie Toni on 10-08-2024 Nucleated RBC/100 WBC (Bld) [Ratio] 1.7 % 0-5 [facility] Platelet countOrdered By: Bharti parson Toni on 10-08-2024 Platelets (Bld) [#/Vol] 194 10*3/uL 150-450 [facility] Potassium measurement (mass/ volume)Ordered By: Kelsie Toni on 10-08-2024 Potassium (Unsp spec) [Mass/Vol] 3.7 mmol/L 3.3-5.1 [facility] Prothrombin Time w/INRon INR Coag (PPP) [Relative time] 1.9 {INR} Normal [facility] Comment on above: Performed By: #### L 500.4050, L300.3900, L100.0100, L500.4100 ####[facility] [address] [place], [address] PT Coag (PPP) [Time] 22.5 s High 11.7-14.9 [facility] Comment on above: Performed By: #### L 500.4050, L300.3900, L100.0100, L500.4100 ####[facility] [address] [place], [address] INR Coag (PPP) [Relative time] 1.9 {INR} Normal [facility] Comment on above: Order Comment: Comme nts: Obtain within 30 min-1 hour of FFP completion. Performed By: #### L 300.3900, L100.0600 ####[facility] [address] [place], [place], [address] PT Coag (PPP) [Time] 22.3 s High 11.7-14.9 [facility] Comment on above: Order Comment: Comme nts: Obtain within 30 min-1 hour of FFP completion. Performed By: #### L 300.3900, L100.0600 ####[facility] [address] [place], [address] Prothrombin timeOrdered By: Kelsie Muñoz on 10-08-2024 PT Coag (PPP) [Time] 22.5 s High 11.7-14.9 [facility] RBC Auto (Bld) [#/Vol]Ordere d By: Kelsie Muñoz on 10-08-2024 RBC (Bld) [#/Vol] 2.68 10*6/uL Low 4.2-5.4 [facility] Screening total cholesterol/ high density lipoprotein (HDL) cholesterol ratioOrdered By: Kelsie Muñoz on 10-08-2024 Cholesterol.total/Choles terol in HDL [Mass ratio] 6.48 {ratio} [facility] Serum creatinine measurement (mass/volume)Ordered By: Kelsie Muñoz on 10-08-2024 Creatinine [Mass/Vol] 1.25 mg/dL High 0.70-1.20 [facility] Serum globulin measurementOr dered By: Kelsie Muñoz on 10-08-2024 Globulin (S) [Mass/Vol] 2.7 g/dL 2.2-4.2 [facility] Serum glucose measurement (m ass/volume)Ordered By: Kelsie Muñoz on 10-08-2024 Glucose [Mass/Vol] 121 mg/dL High 70-[address] [facility] Serum or plasma alanine jackson otransferase (ALT) measurementOrdered By: Kelsie Muñoz on 10-08-2024 ALT [Catalytic activity/Vol] 11 U/L <35 [facility] Serum or plasma albumin walker urement (mass/volume)Ordered By: Kelsie Muñoz on 10-08-2024 Albumin [Mass/Vol] 3.9 g/dL 3.4-4.[address] [facility] Serum or plasma albumin/glob ulin mass ratioOrdered By: Kelsie Muñoz on 10-08-2024 Albumin/Globulin [Mass ratio] 1.5 {ratio} 0.9-2.4 [facility] Serum or plasma alkaline alejandro sphatase measurementOrdered By: Kelsie Muñoz on 10-08-2024 ALP [Catalytic activity/Vol] 48 U/L 35-104 [facility] Serum or plasma calcium walker urement (mass/volume)Ordered By: Kelsie Muñoz on 10-08-2024 Calcium [Mass/Vol] 9.1 mg/dL 7.6-11.[address] [facility] Serum or plasma cholesterol in HDL measurement (mass/volume)Ordered By: Kelsie Muñoz on 10-08-2024 Cholesterol in HDL [Mass/Vol] 25 mg/dL Low >40 [facility] Comment on above: National Cholesterol Education Program (NCEP) guidelines:<40 mg/dL: Low HDL-cholesterol (major risk factor for CHD)>= 60 mg/dL: High HDL-cholesterol (negative risk factor for CHD)HDL-cholesterol is affected by a number of factors, e.g. smoking, exercise, hormones, sex and age. Serum or plasma cholesterol measurement (mass/volume)Ordered By: Kelsie Muñoz on 10-08-2024 Cholesterol [Mass/Vol] 160 mg/dL <201 [facility] Comment on above: Cholesterol level, D esirable <200 mg/dLBorderline high cholesterol 200-239 mg/dLHigh cholesterol >=240 mg/dLRecommendations of the NCEP Adult Treatment Panel for the following risk-cutoff thresholds for the [place] population. Serum or plasma urea nitroge n measurement (mass/volume)Ordered By: Kelsie Muñoz on 10-08-2024 Urea nitrogen [Mass/Vol] 36 mg/dL High 4-19 [facility] Sodium levelOrdered By: Brenda mn Toni on 10-08-2024 Sodium [Moles/Vol] 140 mmol/L 133-[address] [facility] Total proteinOrdered By: Yahaira umn Toni on 10-08-2024 Protein [Mass/Vol] 6.6 g/dL 5.9-8.[address] [facility] Triglycerides measurementOrd ered By: Kelsie Muñoz on 10-08-2024 Triglyceride [Mass/Vol] 359 mg/dL High <199 [facility] Comment on above: The drugs N-Acetylcy steine and Metamizole may falsely depress this assay. Normal range: <150 mg/dLBorderline High: 150-199 mg/dLHigh: 200-499 mg/dLVery High: >500 mg/dL Troponin T.cardiac [Mass/vol ume] in Serum or Plasma by High sensitivity methodOrdered By: Matheus Fabian on 10-08-2024 Troponin T.cardiac High sensitivity method [Mass/Vol] 50 ng/L High <14 [facility] Troponin T.cardiac High sensitivity method [Mass/Vol] 42 ng/L High <14 [facility] White blood cell (WBC) count Ordered By: Kelsie Muñoz on 10-08-2024 WBC (Bld) [#/Vol] 7.2 10*3/uL 4.4-11.[address] [facility] 12 Lead EKGon 10-07-2024 12 Lead EKG Normal [facility] Absolute lymphocyte countOrd ered By: Matheus Fabian on 10-07-2024 Lymphocytes Auto (Unsp spec) [#/Vol] 1.35 10*3/uL 0.83-4.51 [facility] Absolute neutrophil countOrd ered By: Matheus Fabian on 10-07-2024 Neutrophils (Bld) [#/Vol] 5.3 10*3/uL 2.0-7.7 [facility] Anion gap in Serum or Plasma Ordered By: Matheus Fabian on 10-07-2024 Anion gap [Moles/Vol] 16 mmol/L High 5-15 [facility] Automated lymphocyte count a s percentage of total leukocytesOrdered By: Matheus Fabian on 10-07-2024 Lymphocytes/100 WBC Auto (Unsp spec) 18.2 % Low 19-41 [facility] BFFPon 10-07-2024 FFP Normal [facility] Comment on above: Result Comment: [id number] AP FFP TRANSFUSED 10/08/24 0305 Performed By: #### B FFP ####[facility] [address] [place], [address] BRCon 10-07-2024 RC Normal [facility] Comment on above: Result Comment: [id number] AP RC TRANSFUSED 10/08/24 [id number] AP RC TRANSFUSED 10/08/24 0428 Performed By: #### B TS, [facility] ####[facility] [address] [place], [address] BUN/creatinine ratioOrdered By: Matheus Fabian on 10-07-2024 Urea nitrogen/Creatinine [Mass ratio] 24.9 mg/mg High - [facility] Basic Metabolic Profile (BMP )on 10-07-2024 BUN/CRE 24.9 RATIO High - [facility] Comment on above: Performed By: #### L 100.0100, L501.4021, L300.3900, L500.2500, L503.7505 ####[facility] [address] [place], [address] Calcium [Mass/Vol] 8.6 mg/dL Normal 7.6-11.[address] [facility] Comment on above: Performed By: #### L 100.0100, L501.4021, L300.3900, L500.2500, L503.7505 ####[facility] [address] [place], [address] Chloride [Moles/Vol] 102 mmol/L Normal 98-108 [facility] Comment on above: Performed By: #### L 100.0100, L501.4021, L300.3900, L500.2500, L503.7505 ####[facility] [address] [place], [address] CO2 [Moles/Vol] 16.2 mmol/L Low 21.0-32.0 [facility] Comment on above: Performed By: #### L 100.0100, L501.4021, L300.3900, L500.2500, L503.7505 ####[facility] [address] [place], [address] Creatinine [Mass/Vol] 1.46 mg/dL High 0.70-1.20 [facility] Comment on above: Performed By: #### L 100.0100, L501.4021, L300.3900, L500.2500, L503.7505 ####[facility] [address] [place], [address] ECRCL 26.99 ml/min Low 50-250 [facility] Comment on above: Performed By: #### L 100.0100, L501.4021, L300.3900, L500.2500, L503.7505 ####[facility] [address] [place], [address] GAP 16 High 5-15 [facility] Comment on above: Performed By: #### L 100.0100, L501.4021, L300.3900, L500.2500, L503.7505 ####[facility] [address] [place], [address] GFR/1.73 sq M.predicted among non-blacks MDRD (S/P/Bld) [Vol rate/Area] 35 mL/min/{1.73_m2} Low >60 [facility] Comment on above: Result Comment: mL/m in/1.73m2 CKD-EPI Creatinine Equation (2020) Performed By: #### L 100.0100, L501.4021, L300.3900, L500.2500, L503.7505 ####[facility] [address] [place], [address] Glucose [Mass/Vol] 140 mg/dL High 70-[address] [facility] Comment on above: Performed By: #### L 100.0100, L501.4021, L300.3900, L500.2500, L503.7505 ####[facility] [address] [place], [address] Potassium [Moles/Vol] 3.9 mmol/L Normal 3.3-5.1 [facility] Comment on above: Result Comment: Hemo lysis present, Results??could be affected.?? Performed By: #### L 100.0100, L501.4021, L300.3900, L500.2500, L503.7505 ####[facility] [address] [place], [address] Sodium [Moles/Vol] 134 mmol/L Normal 133-[address] [facility] Comment on above: Performed By: #### L 100.0100, L501.4021, L300.3900, L500.2500, L503.7505 ####[facility] [address] [place], [address] Urea nitrogen [Mass/Vol] 36 mg/dL High 4-19 [facility] Comment on above: Performed By: #### L 100.0100, L501.4021, L300.3900, L500.2500, L503.7505 ####[facility] [address] [place], [address] Basophil percentageOrdered B y: Matheus Fabian on 10-07-2024 Basophils/100 WBC (Bld) 0.3 % 0-[address] [facility] Blood manual differential co mment interpretation (narrative result)Ordered By: Matheus Fabian on 10-07-2024 Manual differential comment Warren (Bld) [Interp] SCANNED [facility] Blood polychromasia detectio n by light microscopyOrdered By: Matheus Fabian on 10-07-2024 Polychromasia LM Ql (Bld) 2+ [facility] CBC W/Diff, Automatedon 06-0 Anisocytosis Ql (Bld) 2+ Normal [facility] Comment on above: Performed By: #### L 100.0100, L501.4021, L300.3900, L500.2500, L503.7505 ####[facility] [address] [place], [address] POLYCHROMASIA 2+ Normal [facility] Comment on above: Performed By: #### L 100.0100, L501.4021, L300.3900, L500.2500, L503.7505 ####[facility] [address] [place], [address] PLT EST ADEQUATE Normal ADEQ [facility] Comment on above: Performed By: #### L 100.0100, L501.4021, L300.3900, L500.2500, L503.7505 ####[facility] [address] [place], [address] SMEAR COMMENT SCANNED Normal [facility] Comment on above: Performed By: #### L 100.0100, L501.4021, L300.3900, L500.2500, L503.7505 ####[facility] [address] [place], [address] Carbon dioxide, total [Moles /volume] in Central venous bloodOrdered By: Matheus Fabian on 10-07-2024 CO2 [Moles/Vol] 16.2 mmol/L Low 21.0-32.0 [facility] Chest PA and Lateralon 10-07 Chest PA and Lateral Normal [facility] Chloride assayOrdered By: Shreyas Fabian on 10-07-2024 Chloride [Moles/Vol] 102 mmol/L 98-108 [facility] Emergency Department Summary on 10-07-2024 Emergency Department Summary Normal [facility] Eosinophil percentageOrdered By: Matheus Fabian on 10-07-2024 Eosinophils/100 WBC (Bld) 0.4 % 0-5 [facility] Erythrocyte distribution wid th ratioOrdered By: Matheus Fabian on 10-07-2024 Erythrocyte distribution width (RBC) [Ratio] 19.2 % High 11.6-14.6 [facility] Erythrocyte distribution wid th standard deviationOrdered By: Matheus Fabian on 10-07-2024 Erythrocyte distribution width (RBC) [Ratio] 72.3 fl High 35.1-43.9 [facility] Glomerular filtration rate ( GFR) estimation/1.73 sq m using serum, plasma, or whole bOrdered By: Matheus Fabian on 10-07-2024 GFR/1.73 sq M.predicted among non-blacks MDRD (S/P/Bld) [Vol rate/Area] 35 mL/min/{1.73_m2} Low >60 [facility] Comment on above: mL/min/1.73m2 CKD-EP I Creatinine Equation (2020) H AND P Exam - [facility] 10-07-2024 H&P Exam - Hospitalist Normal [facility] Hematocrit Auto (Bld) [Volum e fraction]Ordered By: Matheus Fabian on 10-07-2024 Hematocrit (Bld) [Volume fraction] 20.6 % Low 37-47 [facility] Hemoglobin measurementOrdere d By: Matheus Fabian on 10-07-2024 Hemoglobin (Bld) [Mass/Vol] 6.5 g/dL Low 12.0-15.0 [facility] Immature granulocytes/100 WB C Auto (Bld)Ordered By: Matheus Fabian on 10-07-2024 Immature granulocytes/100 WBC (Bld) 0.400 % 0.0-0.9 [facility] Comment on above: IG% - Immature Granu locytes (promyelocytes, myelocytes and metamyelocytes) > 1% indicates that a LEFT SHIFT is Present. International normalized rat io (INR) calculationOrdered By: Matheus Fabian on 10-07-2024 INR Coag (Bld) [Relative time] 2.7 {INR} [facility] L501.4021on 10-07-2024 Trop T High Sen 46 ng/L High <=14 [facility] Comment on above: Performed By: #### L 100.0100, L501.4021, L300.3900, L500.2500, L503.7505 ####[facility] [address] [place], [place], [address] L503.7505on 10-07-2024 Natriuretic peptide B (Bld) [Mass/Vol] 2304 pg/mL High <=1800 [facility] Comment on above: Result Comment: Hear t Failure Unlikely: < 300 pg/mLHeart Failure Likely< 50 Years: > 450 pg/mL50-75 Years: > 900 pg/mL>75 Years: > 1800 pg/mL Performed By: #### L 100.0100, L501.4021, L300.3900, L500.2500, L503.7505 ####[facility] [address] [place], [address] Laboratory - Hematology and Cell countsOrdered By: Matheus Fabian on 10-07-2024 Anisocytosis Ql (Bld) 2+ [facility] MCV (mean corpuscular volume ) determinationOrdered By: Matheus Fabian on 10-07-2024 MCV (RBC) [Entitic vol] 106.7 fL High 81-[address] [facility] Magnesium measurement (mass/ volume)Ordered By: Kelsie Muñoz on 10-07-2024 Magnesium (Unsp spec) [Mass/Vol] 2.0 mg/dL 1.5-2.2 [facility] Mean corpuscular hemoglobin (MCH) determinationOrdered By: Matheus Fabian on 10-07-2024 MCH (RBC) [Entitic mass] 33.7 pg High 27.0-32.0 [facility] Mean corpuscular hemoglobin concentration (MCHC) determinationOrdered By: Matheus Fabian on 10-07-2024 MCHC (RBC) [Mass/Vol] 31.6 g/dL Low 32-36 [facility] Mean platelet volume determi nationOrdered By: Matheus Fabian on 10-07-2024 Platelet mean volume (Bld) [Entitic vol] 11.5 fL 6.2-12.0 [facility] Monocyte percentageOrdered B y: Matheus Fabian on 10-07-2024 Monocytes/100 WBC (Bld) 8.9 % 0-[address] [facility] Natriuretic peptide.B prohor dolores N-Terminal [Mass/volume] in Serum or PlasmaOrdered By: Matheus Fabian on 10-07-2024 Natriuretic peptide.B prohormone N-Terminal [Mass/Vol] 2304 pg/mL High <1800 [facility] Comment on above: Heart Failure Unlike ly: < 300 pg/mLHeart Failure Likely< 50 Years: > 450 pg/mL50-75 Years: > 900 pg/mL>75 Years: > 1800 pg/mL Neutrophil percentageOrdered By: Matheus Fabian on 10-07-2024 Neutrophils/100 WBC (Bld) 71.8 % High 47-70 [facility] Nucleated red blood cell per centageOrdered By: Matheus Fabian on 10-07-2024 Nucleated RBC/100 WBC (Bld) [Ratio] 1.5 % 0-5 [facility] Platelet countOrdered By: Shreyas yangpriscilla Caren on 10-07-2024 Platelets (Bld) [#/Vol] 184 10*3/uL 150-450 [facility] Platelet estimateOrdered By: Matheus Fabian on 10-07-2024 Platelets LM Ql (Bld) ADEQUATE ADEQ [facility] Potassium measurement (mass/ volume)Ordered By: Matheus Fabian on 10-07-2024 Potassium (Unsp spec) [Mass/Vol] 3.9 mmol/L 3.3-5.1 [facility] Comment on above: Hemolysis present, R esults could be affected. Prothrombin Time w/INRon INR Coag (PPP) [Relative time] 2.7 {INR} Normal [facility] Comment on above: Performed By: #### L 100.0100, L501.4021, L300.3900, L500.2500, L503.7505 ####[facility] [address] [place], [address] PT Coag (PPP) [Time] 29.4 s High 11.7-14.9 [facility] Comment on above: Performed By: #### L 100.0100, L501.4021, L300.3900, L500.2500, L503.7505 ####[facility] [address] [place], [address] Prothrombin timeOrdered By: Matheus Fabian on 10-07-2024 PT Coag (PPP) [Time] 29.4 s High 11.7-14.9 [facility] RBC Auto (Bld) [#/Vol]Ordere d By: Matheus Fabian on 10-07-2024 RBC (Bld) [#/Vol] 1.93 10*6/uL Low 4.2-5.4 [facility] Serum creatinine measurement (mass/volume)Ordered By: Matheus Fabian on 10-07-2024 Creatinine [Mass/Vol] 1.46 mg/dL High 0.70-1.20 [facility] Serum glucose measurement (m ass/volume)Ordered By: Matheus Fabian on 10-07-2024 Glucose [Mass/Vol] 140 mg/dL High 70-[address] [facility] Serum or plasma calcium walker urement (mass/volume)Ordered By: Matheus Fabian on 10-07-2024 Calcium [Mass/Vol] 8.6 mg/dL 7.6-11.[address] [facility] Serum or plasma urea nitroge n measurement (mass/volume)Ordered By: Matheus Fabian on 10-07-2024 Urea nitrogen [Mass/Vol] 36 mg/dL High 4-19 [facility] Sodium levelOrdered By: Chapincito Fabian on 10-07-2024 Sodium [Moles/Vol] 134 mmol/L 133-[address] [facility] Stool Occult Blood iFOBon STOB Positive Normal [facility] Comment on above: Performed By: #### M 100.7900 ####[facility] [address] [place], [place], [id number] Stool gastrointestinal hemog lobin detection by immunologic methodOrdered By: Matheus Fabian on 10-07-2024 Lower GI hemoglobin IA Ql (Stl) Positive Abnormal [facility] Troponin T.cardiac [Mass/vol ume] in Serum or Plasma by High sensitivity methodOrdered By: Matheus Fabian on 10-07-2024 Troponin T.cardiac High sensitivity method [Mass/Vol] 46 ng/L High <14 [facility] Type AND Screenon 10-07-2024 ABO and Rh group Nom (Bld) Blood group A Rh(D) positive Normal [facility] Comment on above: Order Comment: CMV N EG? NNumber of units to transfuse: 2Is the EBL >/= 1000ml in adults or >/= 12ml/kg in children?YReason for Ordering Blood: AcuteAre the blood/blood products to be transfused? YIs the patient having/had surgery? NHas pt arrived? Korey AguirreNY Performed By: #### B TS, [facility] ####[facility] [address] [place], [address] White blood cell (WBC) count Ordered By: Matheus Fabian on 10-07-2024 WBC (Bld) [#/Vol] 7.4 10*3/uL 4.4-11.[address] [facility] Venous Duplex US - Kwadwo Extre mon 10-02-2024 Venous Duplex US - Kwadwo Extrem Normal [facility] Venous duplex ultrasound rep ortOrdered By: Jose Hollis on 10-02-2024 US Vein [facility] [address] [place] [address] Venous Duplex US - Kwadwo Extrem 10/02/24 1259 MR#: [id number] Acct: [id number] Name: ERI PRITCHARD Rep #:[id number] : 1940 83 [...] technically difficult. PT had difficulty tolerating probe pressure/compressions. A preliminary report was called and/or faxed [...] bilaterally patent and compressible segmentally. Ordering Physician: Eugene Blanca Referring Physician: Kierra Santiago Performed By: Stephy Duenas RDCS, RVT 10/02/242135 Date _ Jose Hollis MD CC: DPM Dr. Eugene Blanca; Dr. Kierra Santiago MD ~ Date Dictated: 10/02/24 1259 Date Transcribed: 10/02/242135 Preschool Aide: Signed [facility] Other Phone: CTA Head AND Neck W/ Contras ton 10-01-2024 CTA Head AND Neck W/ Contrast Normal [facility] Creatinine measurement at be dsideOrdered By: Laura Crowell on 10-01-2024 Creatinine [Mass/Vol] 1.2 mg/dL High 0.55-1.02 [facility] Comment on above: Performed By: #### L 9100.0200 ####[facility] [address], [address] EGFROrdered By: Laura Crowell on 10-01-2024 GFR/1.73 sq M.predicted among non-blacks MDRD (S/P/Bld) [Vol rate/Area] 44.0000 mL/min/{1.73_m2} Low >60 [facility] Comment on above: Performed By: #### L 9100.0200 ####[facility] [address] [place], [address] Anion gap in Serum or Plasma Ordered By: Dominick Harrell on 08-28-2024 Anion gap [Moles/Vol] 14 mmol/L 5-15 [facility] Ankle Brachial Indexon 08-28 Ankle Brachial Index Normal [facility] BUN/creatinine ratioOrdered By: Dominick Harrell on 08-28-2024 Urea nitrogen/Creatinine [Mass ratio] 22.4 mg/mg High - [facility] Basic Metabolic Profile (BMP )on 08-28-2024 BUN/CRE 22.4 RATIO High - [facility] Comment on above: Performed By: #### L 500.2500 ####[facility] [address] [place], [address] Calcium [Mass/Vol] 9.8 mg/dL Normal 7.6-11.[address] [facility] Comment on above: Performed By: #### L 500.2500 ####[facility] [address] [place], [address] Chloride [Moles/Vol] 102 mmol/L Normal 98-108 [facility] Comment on above: Performed By: #### L 500.2500 ####[facility] [address] [place], [address] CO2 [Moles/Vol] 21.9 mmol/L Normal 21.0-32.0 [facility] Comment on above: Performed By: #### L 500.2500 ####[facility] [address] [place], [address] Creatinine [Mass/Vol] 1.17 mg/dL Normal 0.70-1.20 [facility] Comment on above: Performed By: #### L 500.2500 ####[facility] [address] [place], [address] GAP 14 Normal 5-15 [facility] Comment on above: Performed By: #### L 500.2500 ####[facility] [address] [place], [address] GFR/1.73 sq M.predicted among non-blacks MDRD (S/P/Bld) [Vol rate/Area] 46 mL/min/{1.73_m2} Low >60 [facility] Comment on above: Result Comment: mL/m in/1.73m2 CKD-EPI Creatinine Equation (2020) Performed By: #### L 500.2500 ####[facility] [address] [place], [address] Glucose [Mass/Vol] 140 mg/dL High 70-[address] [facility] Comment on above: Performed By: #### L 500.2500 ####[facility] [address] [place], [address] Potassium [Moles/Vol] 3.9 mmol/L Normal 3.3-5.1 [facility] Comment on above: Performed By: #### L 500.2500 ####[facility] [address] [place], [address] Sodium [Moles/Vol] 137 mmol/L Normal 133-[address] [facility] Comment on above: Performed By: #### L 500.2500 ####[facility] [address] [place], [address] Urea nitrogen [Mass/Vol] 26 mg/dL High 4-19 [facility] Comment on above: Performed By: #### L 500.2500 ####[facility] [address] [place], [address] Carbon dioxide, total [Moles /volume] in Central venous bloodOrdered By: Dominick Harrell on 08-28-2024 CO2 [Moles/Vol] 21.9 mmol/L 21.0-32.0 [facility] Chloride assayOrdered By: Cary Harrell on 08-28-2024 Chloride [Moles/Vol] 102 mmol/L 98-108 [facility] Glomerular filtration rate ( GFR) estimation/1.73 sq m using serum, plasma, or whole bOrdered By: Dominick Harrell on 08-28-2024 GFR/1.73 sq M.predicted among non-blacks MDRD (S/P/Bld) [Vol rate/Area] 46 mL/min/{1.73_m2} Low >60 [facility] Comment on above: mL/min/1.73m2 CKD-EP I Creatinine Equation (2020) Potassium measurement (mass/ volume)Ordered By: Dominick Harrell on 08-28-2024 Potassium (Unsp spec) [Mass/Vol] 3.9 mmol/L 3.3-5.1 [facility] Serum creatinine measurement (mass/volume)Ordered By: Dominick Harrell on 08-28-2024 Creatinine [Mass/Vol] 1.17 mg/dL 0.70-1.20 [facility] Serum glucose measurement (m ass/volume)Ordered By: Dominick Harrell on 08-28-2024 Glucose [Mass/Vol] 140 mg/dL High 70-[address] [facility] Serum or plasma calcium walker urement (mass/volume)Ordered By: Dominick Harrell on 08-28-2024 Calcium [Mass/Vol] 9.8 mg/dL 7.6-11.[address] [facility] Serum or plasma urea nitroge n measurement (mass/volume)Ordered By: Dominick Harrell on 08-28-2024 Urea nitrogen [Mass/Vol] 26 mg/dL High 4-19 [facility] Sodium levelOrdered By: Dominick Harrell on 08-28-2024 Sodium [Moles/Vol] 137 mmol/L 133-145 [facility] Art Duplex Unilat Lower E xton 08-28-2024 Art Duplex Unilat Lower Ext Normal [facility] EGD Reporton 08-22-2024 EGD Report Normal [facility] International normalized rat io (INR) calculationOrdered By: Robb Giron on 08-22-2024 INR Coag (Bld) [Relative time] 1.2 {INR} [facility] MR/POSTOP.ANEon 08-22-2024 MR/POSTOP.ANE Normal [facility] MR/[id number] 08-22-2024 MR/POSTOPAN2 Normal [facility] Prothrombin Time w/INRon INR Coag (PPP) [Relative time] 1.2 {INR} Normal [facility] Comment on above: Performed By: #### L 300.3900 ####[facility] [address] [place], [address] PT Coag (PPP) [Time] 15.5 s High 11.7-14.9 [facility] Comment on above: Performed By: #### L 300.3900 ####[facility] [address] [place], [address] Prothrombin timeOrdered By: Robb Giron on 08-22-2024 PT Coag (PPP) [Time] 15.5 s High 11.7-14.9 [facility] Protime w/INR Fingerstickon 08-22-2024 INR Coag (PPP) [Relative time] 1.4 {INR} Normal [facility] Comment on above: Result Comment: Crit ical Value > 4.0 Performed By: #### L 9200.0000 ####[facility] [facility] [address] [place], [address](333 Protime Coagsen 16.1 SEC High 11.7-14.9 [facility] Comment on above: Performed By: #### L 9200.0000 ####[facility] [address] [place], [address] Surgery Specimen Level Aj 08-22-2024 Surgery Specimen Level IV Normal [facility] Comment on above: Performed By: #### P SUIV ####[facility] [address] [place], [address](368 Whole blood prothrombin time Ordered By: Robb Giron on 08-22-2024 PT Coag (Bld) [Time] 16.1 s High 11.7-14.9 [facility] MR/PAT.ANEon 08-17-2024 MR/PAT.ANE Normal [facility] Anion gap in Serum or Plasma Ordered By: Dominick Harrell on 08-15-2024 Anion gap [Moles/Vol] 13 mmol/L - [facility] BUN/creatinine ratioOrdered By: Dominick Harrell on 08-15-2024 Urea nitrogen/Creatinine [Mass ratio] 29.1 mg/mg High 02-18 [facility] Basic Metabolic Profile (BMP )on 08-15-2024 BUN/CRE 29.1 RATIO High 02-18 [facility] Comment on above: Performed By: #### L 500.2500 ####[facility] [address] [place], [address] Calcium [Mass/Vol] 9.9 mg/dL Normal 7.6-11.[address] [facility] Comment on above: Performed By: #### L 500.2500 ####[facility] [address] [place], [address] Chloride [Moles/Vol] 99 mmol/L Normal 98-108 [facility] Comment on above: Performed By: #### L 500.2500 ####[facility] [address] [place], [address] CO2 [Moles/Vol] 25.0 mmol/L Normal 21.0-32.0 [facility] Comment on above: Performed By: #### L 500.2500 ####[facility] [address] [place], [address] Creatinine [Mass/Vol] 1.16 mg/dL Normal 0.70-1.20 [facility] Comment on above: Performed By: #### L 500.2500 ####[facility] [address] [place], [address] GAP 13 Normal - [facility] Comment on above: Performed By: #### L 500.2500 ####[facility] [address] [place], [address] GFR/1.73 sq M.predicted among non-blacks MDRD (S/P/Bld) [Vol rate/Area] 46 mL/min/{1.73_m2} Low >60 [facility] Comment on above: Result Comment: mL/m in/1.73m2 CKD-EPI Creatinine Equation (2020) Performed By: #### L 500.2500 ####[facility] [address] [place], [address] Glucose [Mass/Vol] 148 mg/dL High 70-[address] [facility] Comment on above: Performed By: #### L 500.2500 ####[facility] [address] [place], [address] Potassium [Moles/Vol] 3.4 mmol/L Normal 3.3-5.1 [facility] Comment on above: Result Comment: Hemo lysis present, Results??could be affected.?? Performed By: #### L 500.2500 ####[facility] [address] [place], [address] Sodium [Moles/Vol] 137 mmol/L Normal 133-[address] [facility] Comment on above: Performed By: #### L 500.2500 ####[facility] [address] [place], [address] Urea nitrogen [Mass/Vol] 34 mg/dL High 4-19 [facility] Comment on above: Performed By: #### L 500.2500 ####[facility] [address] [place], [address] Carbon dioxide, total [Moles /volume] in Central venous bloodOrdered By: Dominick Harrell on 08-15-2024 CO2 [Moles/Vol] 25.0 mmol/L 21.0-32.0 [facility] Chloride assayOrdered By: Cary Harrell on 08-15-2024 Chloride [Moles/Vol] 99 mmol/L 98-108 [facility] GFR/1.73 sq M.predicted rylie g non-blacks MDRD (S/P/Bld) [Vol rate/Area]Ordered By: Dominick Harrell on 08-15-2024 Estimated GFR (MDRD) Non-Af Amer 46 Low >60 [facility] Comment on above: mL/min/1.73m2 CKD-EP I Creatinine Equation (2020) Glomerular filtration rate ( GFR) estimation/1.73 sq m using serum, plasma, or whole bOrdered By: Dominick Harrell on 08-15-2024 GFR/1.73 sq M.predicted among non-blacks MDRD (S/P/Bld) [Vol rate/Area] 46 mL/min/{1.73_m2} Low >60 [facility] Comment on above: mL/min/1.73m2 CKD-EP I Creatinine Equation (2020) Potassium (Unsp spec) [Mass/ Vol]Ordered By: Dominick Harrell on 08-15-2024 Potassium [Moles/Vol] 3.4 mmol/L 3.3-5.1 [facility] Comment on above: Hemolysis present, R esults could be affected. Potassium measurement (mass/ volume)Ordered By: Dominick Harrell on 08-15-2024 Potassium (Unsp spec) [Mass/Vol] 3.4 mmol/L 3.3-5.1 [facility] Comment on above: Hemolysis present, R esults could be affected. Serum creatinine measurement (mass/volume)Ordered By: Dominick Harrell on 08-15-2024 Creatinine [Mass/Vol] 1.16 mg/dL 0.70-1.20 [facility] Serum glucose measurement (m ass/volume)Ordered By: Dominick Harrell on 08-15-2024 Glucose [Mass/Vol] 148 mg/dL High 70-[address] [facility] Serum or plasma calcium walker urement (mass/volume)Ordered By: Dominick Harrell on 08-15-2024 Calcium [Mass/Vol] 9.9 mg/dL 7.6-11.[address] [facility] Serum or plasma urea nitroge n measurement (mass/volume)Ordered By: Dominick Harrell on 08-15-2024 Urea nitrogen [Mass/Vol] 34 mg/dL High 4-19 [facility] Sodium levelOrdered By: Dominick Harrell on 08-15-2024 Sodium [Moles/Vol] 137 mmol/L 133-145 [facility] 07-31-2024 CNPN Telephone (COUMENDY) ERI PRITCHARD ([id number]) 1940 F Date Time Provider Department 07/31/24 KIERRA SANTIAGO COUMWS During your visit today, we recorded the following information about you: Iwona Donato, RN 07/31/2024 10:04 AM Signed patients orders for coumadin clinic inr's has at this time. new order has been pended for approval if possible so that patient can continue to get inr's completed thru the coumadin clinic. coumadin clinic nurse only needs called if order can not be approved. 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] Order(s):INR (POC) [1276361] Order #: [id number] STANDING PROTHROMBIN TIME [SQPT] Order #: [id number] STANDING Prescriptions as of 07/31/2024 - oxybutynin [...] Status:Closed by ANASTASIIA COLÓN on 07/31/24 Normal [facility] Anion gap in Serum or Plasma Ordered By: Dominick Harrell on 07-25-2024 Anion gap [Moles/Vol] 12 mmol/L - [facility] BUN/creatinine ratioOrdered By: Dominick Harrell on 07-25-2024 Urea nitrogen/Creatinine [Mass ratio] 23.1 mg/mg High 10-20 [facility] Basic Metabolic Profile (BMP )on 07-25-2024 BUN/CRE 23.1 RATIO High 10- [facility] Comment on above: Performed By: #### L 500.2500 ####[facility] [address] [facility] [address] Calcium [Mass/Vol] 9.7 mg/dL Normal 7.6-11.[address] [facility] Comment on above: Performed By: #### L 500.2500 ####[facility] [address] [place], [address] Chloride [Moles/Vol] 102 mmol/L Normal 98-108 [facility] Comment on above: Performed By: #### L 500.2500 ####[facility] [address] [facility] [address] CO2 [Moles/Vol] 23.3 mmol/L Normal 21.0-32.0 [facility] Comment on above: Performed By: #### L 500.2500 ####[facility] [address] [place], [address] Creatinine [Mass/Vol] 1.05 mg/dL Normal 0.70-1.20 [facility] Comment on above: Performed By: #### L 500.2500 ####[facility] [address] [place], [address] GAP 12 Normal 5-15 [facility] Comment on above: Performed By: #### L 500.2500 ####[facility] [address] [place], [address] GFR/1.73 sq M.predicted among non-blacks MDRD (S/P/Bld) [Vol rate/Area] 52 mL/min/{1.73_m2} Low >60 [facility] Comment on above: Result Comment: mL/m in/1.73m2 CKD-EPI Creatinine Equation (2020) Performed By: #### L 500.2500 ####[facility] [address] [place], [address] Glucose [Mass/Vol] 138 mg/dL High 70-[address] [facility] Comment on above: Performed By: #### L 500.2500 ####[facility] [address] [place], [address] Potassium [Moles/Vol] 4.1 mmol/L Normal 3.3-5.1 [facility] Comment on above: Performed By: #### L 500.2500 ####[facility] [address] [place], [address] Sodium [Moles/Vol] 138 mmol/L Normal 133-[address] [facility] Comment on above: Performed By: #### L 500.2500 ####[facility] [address] [place], [address] Urea nitrogen [Mass/Vol] 24 mg/dL High 4-19 [facility] Comment on above: Performed By: #### L 500.2500 ####[facility] [address] [place], [address] Carbon dioxide, total [Moles /volume] in Central venous bloodOrdered By: Dominick Harrell on 07-25-2024 CO2 [Moles/Vol] 23.3 mmol/L 21.0-32.0 [facility] Chloride assayOrdered By: Cary Harrell on 07-25-2024 Chloride [Moles/Vol] 102 mmol/L 98-108 [facility] GFR/1.73 sq M.predicted rylie g non-blacks MDRD (S/P/Bld) [Vol rate/Area]Ordered By: Dominick Harrell on 07-25-2024 Estimated GFR (MDRD) Non-Af Amer 52 Low >60 [facility] Comment on above: mL/min/1.73m2 CKD-EP I Creatinine Equation (2020) Glomerular filtration rate ( GFR) estimation/1.73 sq m using serum, plasma, or whole bOrdered By: Dominick Harrell on 07-25-2024 GFR/1.73 sq M.predicted among non-blacks MDRD (S/P/Bld) [Vol rate/Area] 52 mL/min/{1.73_m2} Low >60 [facility] Comment on above: mL/min/1.73m2 CKD-EP I Creatinine Equation (2020) Potassium (Unsp spec) [Mass/ Vol]Ordered By: Dominick Harrell on 07-25-2024 Potassium [Moles/Vol] 4.1 mmol/L 3.3-5.1 [facility] Potassium measurement (mass/ volume)Ordered By: Dominick Harrell on 07-25-2024 Potassium (Unsp spec) [Mass/Vol] 4.1 mmol/L 3.3-5.1 [facility] Serum creatinine measurement (mass/volume)Ordered By: Dominick Harrell on 07-25-2024 Creatinine [Mass/Vol] 1.05 mg/dL 0.70-1.20 [facility] Serum glucose measurement (m ass/volume)Ordered By: Dominick Harrell on 07-25-2024 Glucose [Mass/Vol] 138 mg/dL High 70-[address] [facility] Serum or plasma calcium walker urement (mass/volume)Ordered By: Dominick Harrell on 07-25-2024 Calcium [Mass/Vol] 9.7 mg/dL 7.6-11.[address] [facility] Serum or plasma urea nitroge n measurement (mass/volume)Ordered By: Dominick Harrell on 07-25-2024 Urea nitrogen [Mass/Vol] 24 mg/dL High 4-19 [facility] Sodium levelOrdered By: Dominick Harrell on 07-25-2024 Sodium [Moles/Vol] 138 mmol/L 133-[address] [facility] Basic metabolic 2000 panelon 07-17-2024 Anion gap [Moles/Vol] 12 mmol/L Normal 8-15 [facility] Comment on above: Order Comment: Speci men Type: BLOOD SPECIMEN Ordering Facility: [facility] Address: [address] [place] [address] Performed By: #### T NIKIA, 03651-8 #### [facility] CLIA [id number] [address] [place] [address] [place] Calcium [Mass/Vol] 9.9 mg/dL Normal 8.5-10.2 [facility] Comment on above: Order Comment: Speci men Type: BLOOD SPECIMEN Ordering Facility: [facility] Address: [address] [place] [address] Performed By: #### T NIKIA, 23116-9 #### [facility] CLIA [id number] [address] [place] [address] [place] Chloride [Moles/Vol] 102 mmol/L Normal 98-107 [facility] Comment on above: Order Comment: Speci men Type: BLOOD SPECIMEN Ordering Facility: [facility] Address: [address] [place] [address] Performed By: #### T CHADD, 50374-5 #### [facility] CLIA [id number] [address] [place] [address] [place] CO2 [Moles/Vol] 24 mmol/L Normal 22-30 [facility] Comment on above: Order Comment: Speci men Type: BLOOD SPECIMEN Ordering Facility: [facility] Address: [address] [place] [address] Performed By: #### T [facility], 67956-3 #### [facility] CLIA [id number] [address] [place] [address] [place] Creatinine [Mass/Vol] 1.01 mg/dL High 0.58-0.96 [facility] Comment on above: Order Comment: Speci men Type: BLOOD SPECIMEN Ordering Facility: [facility] Address: [address] [place] [address] Performed By: #### T [facility], 81013-2 #### [facility] CLIA [id number] [address] [place] [address] [place] Creatinine and Glomerular filtration rate.predicted panel (S/P/Bld) 55 mL/min/1.73m??? Low >=60 [facility] Comment on above: Order Comment: Miguel cunningham Type: BLOOD SPECIMEN Ordering Facility: [facility] Address: [address] [place] [address] Result Comment: Kimberley mated Glomerular Filtration Rate [...] reflect actual GFR. Performed By: #### T [facility], 27722-3 #### [facility] CLIA [id number] [address] [place] [address] [place] Glucose [Mass/Vol] 149 mg/dL High 74-99 [facility] Comment on above: Order Comment: Speci men Type: BLOOD SPECIMEN Ordering Facility: [facility] Address: [address] [place] [address] Result Comment: The [place] Diabetes Association (ADA) provides guidance for cutoff [...] Standards of Medical Care in Diabetes 2016, Canadian Diabetes Association. Diabetes Care. 2016.39(Suppl 1). Performed By: #### T CHADD, 20190-2 #### [facility] CLIA [id number] [address] [place] [address] [place] Potassium [Moles/Vol] 3.8 mmol/L Normal 3.7-5.1 [facility] Comment on above: Order Comment: Miguel cunningham Type: BLOOD SPECIMEN Ordering Facility: [facility] Address: [address] [place] [address] Performed By: #### T CHADD, 69715-1 #### [facility] CLIA [id number] [address] [place] [address] [place] Sodium [Moles/Vol] 138 mmol/L Normal 136-144 [facility] Comment on above: Order Comment: Miguel cunningham Type: BLOOD SPECIMEN Ordering Facility: [facility] Address: [address] [place] [address] Performed By: #### T CHADD, 22730-4 #### [facility] CLIA [id number] [address] [place] [address] [place] Urea nitrogen [Mass/Vol] 23 mg/dL High 7-21 [facility] Comment on above: Order Comment: Ana Mi octavio Type: BLOOD SPECIMEN Ordering Facility: [facility] Address: [address] [place] [address] Performed By: #### T CHADD, 99522-7 #### [facility] CLIA [id number] [address] [place] [address] [place] CBC W Auto Differential pane l (Bld)on 07-17-2024 Basophils (Bld) [#/Vol] 0.04 10*3/uL [facility] Basophils/100 WBC (Bld) 0.5 % C [facility] Differential cell count method Nom (Bld) Auto [facility] Eosinophils (Bld) [#/Vol] 0.19 10*3/uL [facility] Eosinophils/100 WBC (Bld) 2.6 % [facility] Erythrocyte distribution width (RBC) [Ratio] 15.1 % High 11.5 - 15.0 % [facility] Hematocrit (Bld) [Volume fraction] 36.7 % 36.0 - 46.0 % [facility] Hemoglobin (Bld) [Mass/Vol] 11.8 g/dL 11.5 - 15.5 g/dL [facility] Immature granulocytes (Bld) [#/Vol] 0.05 10*3/uL [facility] Immature granulocytes/100 WBC (Bld) 0.7 % [facility] Interpretation and review of laboratory results Abnormal [facility] Lymphocytes (Bld) [#/Vol] 1.94 10*3/uL [facility] Lymphocytes/100 WBC (Bld) 26.6 % [facility] MCH (RBC) [Entitic mass] 31.6 pg 26. 0 - 34.[address] [facility] MCHC (RBC) [Mass/Vol] 32.2 g/dL 30.5 - 36.0 g/dL [facility] MCV (RBC) [Entitic vol] 98.1 fL 80.0 - 100.[address] [facility] Monocytes (Bld) [#/Vol] 0.7 10*3/uL [facility] Monocytes/100 WBC (Bld) 9.6 % C [facility] Neutrophils (Bld) [#/Vol] 4.36 10*3/uL [facility] Neutrophils/100 WBC (Bld) 60 % [facility] Nucleated RBC (Bld) [#/Vol] [facility] Nucleated RBC/100 WBC (Bld) [Ratio] 0 % /[address] [facility] Platelet mean volume (Bld) [Entitic vol] 11.8 fL 9.0 - 12.[address] [facility] Platelets (Bld) [#/Vol] 239 10*3/uL [facility] RBC (Bld) [#/Vol] 3.74 10*6/uL Low 3.90 - 5.2 0 m/uL [facility] WBC (Bld) [#/Vol] 7.28 10*3/uL [facility] Basophils (Bld) [#/Vol] 0.04 10*3/uL Normal <0.11 [facility] Comment on above: Order Comment: Speci men Type: BLOOD SPECIMEN Ordering Facility: [facility] Address: [address] [place] [address] Performed By: #### 5 7021-8 #### [facility] CLIA [id number] [address] [place] [address] [place] Basophils/100 WBC (Bld) 0.5 % [facility] Comment on above: Order Comment: Speci men Type: BLOOD SPECIMEN Ordering Facility: [facility] Address: [address] [place] [address] Performed By: #### 5 7021-8 #### [facility] CLIA [id number] [address] [place] [address] [place] Differential cell count method Nom (Bld) Auto Normal [facility] Comment on above: Order Comment: Speci men Type: BLOOD SPECIMEN Ordering Facility: [facility] Address: [address] [place] [address] Performed By: #### 5 7021-8 #### [facility] CLIA [id number] [address] [place] [address] [place] Eosinophils (Bld) [#/Vol] 0.19 10*3/uL Normal <0.46 [facility] Comment on above: Order Comment: Speci men Type: BLOOD SPECIMEN Ordering Facility: [facility] Address: [address] [place] [address] Performed By: #### 5 7021-8 #### [facility] CLIA [id number] [address] [place] [address] [place] Eosinophils/100 WBC (Bld) 2.6 % Normal [facility] Comment on above: Order Comment: Speci men Type: BLOOD SPECIMEN Ordering Facility: [facility] Address: [address] [place] [address] Performed By: #### 5 7021-8 #### [facility] CLIA [id number] [address] [place] [address] [place] Erythrocyte distribution width (RBC) [Ratio] 15.1 % High 11.5-15.0 [facility] Comment on above: Order Comment: Speci men Type: BLOOD SPECIMEN Ordering Facility: [facility] Address: [address] [place] [address] Performed By: #### 5 7021-8 #### [facility] CLIA [id number] [address] [place] [address] [place] Hematocrit (Bld) [Volume fraction] 36.7 % Normal 36.0-46.0 [facility] Comment on above: Order Comment: Speci men Type: BLOOD SPECIMEN Ordering Facility: [facility] Address: [address] [place] [address] Performed By: #### 5 7021-8 #### [facility] CLIA [id number] [address] [place] [address] [place] Hemoglobin (Bld) [Mass/Vol] 11.8 g/dL Normal 11.5-15.5 [facility] Comment on above: Order Comment: Speci men Type: BLOOD SPECIMEN Ordering Facility: [facility] Address: [address] [place] [address] Performed By: #### 5 7021-8 #### [facility] CLIA [id number] [address] [place] [address] [place] Immature granulocytes (Bld) [#/Vol] 0.05 10*3/uL Normal <0.10 [facility] Comment on above: Order Comment: Speci men Type: BLOOD SPECIMEN Ordering Facility: [facility] Address: [address] [place] [address] Performed By: #### 5 7021-8 #### [facility] CLIA [id number] [address] [place] [address] [place] Immature granulocytes/100 WBC (Bld) 0.7 % Normal [facility] Comment on above: Order Comment: Speci men Type: BLOOD SPECIMEN Ordering Facility: [facility] Address: [address] [place] [address] Performed By: #### 5 7021-8 #### [facility] CLIA [id number] [address] [place] [address] [place] Lymphocytes (Bld) [#/Vol] 1.94 10*3/uL Normal 1.00-4.00 [facility] Comment on above: Order Comment: Speci men Type: BLOOD SPECIMEN Ordering Facility: [facility] Address: [address] [place] [address] Performed By: #### 5 7021-8 #### [facility] CLIA [id number] [address] [place] [address] [place] Lymphocytes/100 WBC (Bld) 26.6 % Normal [facility] Comment on above: Order Comment: Speci men Type: BLOOD SPECIMEN Ordering Facility: [facility] Address: [address] [place] [address] Performed By: #### 5 7021-8 #### [facility] CLIA [id number] [address] [place] [address] [place] MCH (RBC) [Entitic mass] 31.6 pg Normal 26.0-34.0 [facility] Comment on above: Order Comment: Speci men Type: BLOOD SPECIMEN Ordering Facility: [facility] Address: [address] [place] [address] Performed By: #### 5 7021-8 #### [facility] CLIA [id number] [address] [place] [address] [place] MCHC (RBC) [Mass/Vol] 32.2 g/dL Normal 30.5-36.0 [facility] Comment on above: Order Comment: Speci men Type: BLOOD SPECIMEN Ordering Facility: [facility] Address: [address] [place] [address] Performed By: #### 5 7021-8 #### [facility] CLIA [id number] [address] [place] [address] [place] MCV (RBC) [Entitic vol] 98.1 fL Normal 80.0-100.0 C [facility] Comment on above: Order Comment: Speci men Type: BLOOD SPECIMEN Ordering Facility: [facility] Address: [address] [place] [address] Performed By: #### 5 7021-8 #### [facility] CLIA [id number] [address] [place] [address] [place] Monocytes (Bld) [#/Vol] 0.70 10*3/uL Normal <0.87 [facility] Comment on above: Order Comment: Speci men Type: BLOOD SPECIMEN Ordering Facility: [facility] Address: [address] [place] [address] Performed By: #### 5 7021-8 #### [facility] CLIA [id number] [address] [place] [address] [place] Monocytes/100 WBC (Bld) 9.6 % [facility] Comment on above: Order Comment: Speci men Type: BLOOD SPECIMEN Ordering Facility: [facility] Address: [address] [place] [address] Performed By: #### 5 7021-8 #### [facility] CLIA [id number] [address] [place] [address] [place] Neutrophils (Bld) [#/Vol] 4.36 10*3/uL Normal 1.45-7.50 [facility] Comment on above: Order Comment: Speci men Type: BLOOD SPECIMEN Ordering Facility: [facility] Address: [address] [place] [address] Performed By: #### 5 7021-8 #### [facility] CLIA [id number] [address] [place] [address] [place] Neutrophils/100 WBC (Bld) 60.0 % Normal [facility] Comment on above: Order Comment: Speci men Type: BLOOD SPECIMEN Ordering Facility: [facility] Address: [address] [place] [address] Performed By: #### 5 7021-8 #### [facility] CLIA [id number] [address] [place] [address] [place] Nucleated RBC (Bld) [#/Vol] 10*3/uL Normal <0.01 [facility] Comment on above: Order Comment: Speci men Type: BLOOD SPECIMEN Ordering Facility: [facility] Address: [address] [place] [address] Performed By: #### 5 7021-8 #### [facility] CLIA [id number] [address] [place] [address] [place] Nucleated RBC/100 WBC (Bld) [Ratio] 0.0 /100 WBC Normal [facility] Comment on above: Order Comment: Speci men Type: BLOOD SPECIMEN Ordering Facility: [facility] Address: [address] [place] [address] Performed By: #### 5 7021-8 #### [facility] CLIA [id number] [address] [place] [address] [place] Platelet mean volume (Bld) [Entitic vol] 11.8 fL Normal 9.0-12.7 [facility] Comment on above: Order Comment: Speci men Type: BLOOD SPECIMEN Ordering Facility: [facility] Address: [address] [place] [address] Performed By: #### 5 7021-8 #### [facility] CLIA [id number] [address] [place], [place] [id number] [place] Platelets (Bld) [#/Vol] 239 10*3/uL Normal 150-400 [facility] Comment on above: Order Comment: Speci men Type: BLOOD SPECIMEN Ordering Facility: [facility] Address: [address] [place] [address] Performed By: #### 5 7021-8 #### [facility] CLIA [id number] [address] [place] [address] [place] RBC (Bld) [#/Vol] 3.74 10*6/uL Low 3.90-5.20 [facility] Comment on above: Order Comment: Speci men Type: BLOOD SPECIMEN Ordering Facility: [facility] Address: [address] [place] [address] Performed By: #### 5 7021-8 #### [facility] CLIA [id number] [address] [place] [address] [place] WBC (Bld) [#/Vol] 7.28 10*3/uL Normal 3.70-11.00 [facility] Comment on above: Order Comment: Speci men Type: BLOOD SPECIMEN Ordering Facility: [facility] Address: [address] [place] [address] Performed By: #### 5 7021-8 #### [facility] CLIA [id number] [address] [place] [address] [place] CNOVon 07-17-2024 CNOV Office Visit (INTMWS ) ERI PRITCHARD ([id number]) 1940 F Date Time Provider Department 07/17/24 10:00 AM ANASTASIIA COLÓN INTMWS During your visit today, we recorded the following information about you: Pulse Respiration Blood pressure Weight 60/minute 16/minute 131/65 64 kg ColónAnastasiia, SHANNAN.STUDENT EDUCATION SPECIALIST 07/17/2024 10:47 AM Signed SUBJECTIVE: Diabetic Foot [...] her previous visit: She was admitted to [facility] March 19 through April 05. She [...] rehab for debility. Discharged to home with [facility] home care. Today reports eating and drinking normally. No bowel or bladder complaints. She has [place] home [facility] care coming out to her home. She has an appointment coming up with her animal care provider Dr. Blanca. She reports no upcoming appointment [...] check circulation Seeing Dr. Javier Manzo [facility]. Notes taking furosemide QD to BID, [...] membrane normal. Nose: Rhinorrhea present. Mouth/Throat: Lips: Lindsey. Mouth: Mucous membranes are moist. Pharynx: Oropharynx [...] tablet T (more content not included)... Normal [facility] HbA1c (Bld)on 07-17-2024 Average glucose Estimated from glycated hemoglobin (Bld) [Mass/Vol] 114 mg/dL Normal [facility] Comment on above: Order Comment: Miguel cunningham Type: BLOOD SPECIMEN Ordering Facility: [facility] Address: [address] [place] [address] Result Comment: eAG: (Estimated average glucose) is a calculated value from HgbA1c and is sales representative consultant of the average blood glucose level in the last 2-3 month period. Performed By: #### 5 5454-3 #### [facility] CLIA [id number] [address] [place] [address] [place] HbA1c (Bld) [Mass fraction] 5.6 % Normal 4.3-5.6 [facility] Comment on above: Order Comment: Miguel cunningham Type: BLOOD SPECIMEN Ordering Facility: [facility] Address: [address] [place] [address] Result Comment: Amer ican Diabetes Association guidelines indicate that patients with HgbA1c in the range 5.7-6.4% are at increased risk for development of diabetes, and intervention by lifestyle modification may be beneficial. HgbA1c greater or equal to 6.5% is considered diagnostic of diabetes. Performed By: #### 5 5454-3 #### [facility] CLIA [id number] [address] [place] [address] [place] TSH W/REFLEX FT4on 5 TSH Qn 2.660 m[IU]/L Normal 0.270-4.200 [facility] Comment on above: Order Comment: Miguel cunningham Type: BLOOD SPECIMEN Ordering Facility: [facility] Address: [address] [place] [address] Performed By: #### T [facility], 24852-0 #### [facility] CLIA [id number] [address] [place] [address] [place] Anion gap in Serum or Plasma Ordered By: Dominick Harrell on 07-10-2024 Anion gap [Moles/Vol] 14 mmol/L 5- [facility] BUN/creatinine ratioOrdered By: Dominick Harrell on 07-10-2024 Urea nitrogen/Creatinine [Mass ratio] 24.8 mg/mg High 02-18 [facility] Basic Metabolic Profile (BMP )on 07-10-2024 BUN/CRE 24.8 RATIO High 02-18 [facility] Comment on above: Performed By: #### L 500.2500 ####[facility] [address] [place], [address] Calcium [Mass/Vol] 9.6 mg/dL Normal 7.6-11.[address] [facility] Comment on above: Performed By: #### L 500.2500 ####[facility] [address] [place], [address] Chloride [Moles/Vol] 99 mmol/L Normal 98-108 [facility] Comment on above: Performed By: #### L 500.2500 ####[facility] [address] [place], [address] CO2 [Moles/Vol] 24.0 mmol/L Normal 21.0-32.0 [facility] Comment on above: Performed By: #### L 500.2500 ####[facility] [address] [place], [address] Creatinine [Mass/Vol] 1.01 mg/dL Normal 0.70-1.20 [facility] Comment on above: Performed By: #### L 500.2500 ####[facility] [address] [place], [address] GAP 14 Normal -15 [facility] Comment on above: Performed By: #### L 500.2500 ####[facility] [address] [place], [address] GFR/1.73 sq M.predicted among non-blacks MDRD (S/P/Bld) [Vol rate/Area] 55 mL/min/{1.73_m2} Low >60 [facility] Comment on above: Result Comment: mL/m in/1.73m2 CKD-EPI Creatinine Equation (2020) Performed By: #### L 500.2500 ####[facility] [address] [place], [address] Glucose [Mass/Vol] 181 mg/dL High 70-[address] [facility] Comment on above: Performed By: #### L 500.2500 ####[facility] [address] [place] [id number] Potassium [Moles/Vol] 2.9 mmol/L Low 3.3-5.1 [facility] Comment on above: Performed By: #### L 500.2500 ####[facility] [address] [place], [address] Sodium [Moles/Vol] 136 mmol/L Normal 133-[address] [facility] Comment on above: Performed By: #### L 500.2500 ####[facility] [address] [place], [address] Urea nitrogen [Mass/Vol] 25 mg/dL High 4-19 [facility] Comment on above: Performed By: #### L 500.2500 ####[facility] [address] [place], [address] Carbon dioxide, total [Moles /volume] in Central venous bloodOrdered By: Dominick Harrell on 07-10-2024 CO2 [Moles/Vol] 24.0 mmol/L 21.0-32.0 [facility] Chloride assayOrdered By: Cary Harrell on 07-10-2024 Chloride [Moles/Vol] 99 mmol/L 98-108 [facility] GFR/1.73 sq M.predicted rylie g non-blacks MDRD (S/P/Bld) [Vol rate/Area]Ordered By: Dominick Harrell on 07-10-2024 Estimated GFR (MDRD) Non-Af Amer 55 Low >60 [facility] Comment on above: mL/min/1.73m2 CKD-EP I Creatinine Equation (2020) Glomerular filtration rate ( GFR) estimation/1.73 sq m using serum, plasma, or whole bOrdered By: Dominick Harrell on 07-10-2024 GFR/1.73 sq M.predicted among non-blacks MDRD (S/P/Bld) [Vol rate/Area] 55 mL/min/{1.73_m2} Low >60 [facility] Comment on above: mL/min/1.73m2 CKD-EP I Creatinine Equation (2020) Potassium (Unsp spec) [Mass/ Vol]Ordered By: Dominick Harrell on 07-10-2024 Potassium [Moles/Vol] 2.9 mmol/L Low 3.3-5.1 [facility] Potassium measurement (mass/ volume)Ordered By: Dominick Harrell on 07-10-2024 Potassium (Unsp spec) [Mass/Vol] 2.9 mmol/L Low 3.3-5.1 [facility] Serum creatinine measurement (mass/volume)Ordered By: Dominick Harrell on 07-10-2024 Creatinine [Mass/Vol] 1.01 mg/dL 0.70-1.20 [facility] Serum glucose measurement (m ass/volume)Ordered By: Dominick Harrell on 07-10-2024 Glucose [Mass/Vol] 181 mg/dL High 70-[address] [facility] Serum or plasma calcium walker urement (mass/volume)Ordered By: Dominick Harrell on 07-10-2024 Calcium [Mass/Vol] 9.6 mg/dL 7.6-11.[address] [facility] Serum or plasma urea nitroge n measurement (mass/volume)Ordered By: Dominick Harrell on 07-10-2024 Urea nitrogen [Mass/Vol] 25 mg/dL High 4-19 [facility] Sodium levelOrdered By: Dominick Harrell on 07-10-2024 Sodium [Moles/Vol] 136 mmol/L 133-[address] [facility] M7400.3302on 06-25-2024 M7400.3302 Normal [facility] Comment on above: Performed By: #### M 100.637, M600.5000, M7400.3302, M100.6796, L7000.0700, M100.6795 ####[facility] [address] [place], [address] Ova and Parasites 8623on OP Normal [facility] Comment on above: Performed By: #### M 100.637, M600.5000, M7400.3302, M100.6796, L7000.0700, M100.6795 ####[facility] [address] [place], [address] Calprotectin, Stoolon [address] 412 ug/g Abnormal 0-120 [facility] Comment on above: Result Comment: Conc entration Interpretation Follow-Up< 5 - 50 ug/g Normal None>50 -120 ug/g Borderline Re-evaluate in 4-6 weeks >120 ug/g Abnormal Repeat as clinically indicatedPerformed at: [facility] [address] [id number] Director: Tom Colon MD, Phone: [phone] Performed By: #### M 100.637, M600.5000, M7400.3302, M100.6796, L7000.0700, M100.6795 ####[facility] [address] [place], [place], [id number] C. difficile DNA MARCOS+probe Q l (Unsp spec)Ordered By: Ese Hillman on 06-20-2024 Clostridioides difficile (PCR) [facility] C. difficile Ql (Stl)Ordered By: Ese Hillman on 06-20-2024 C. difficile GDH Antigen & Toxins [facility] CDIFF (PCR)on 06-20-2024 CDIFF NA 027 NEGATIVE C. Diff PCR A Positive-Toxigenic C. Difficile Detected A Normal [facility] Comment on above: Performed By: #### M 100.637, M600.5000, M7400.3302, M100.6796, L7000.0700, M100.6795 ####[facility] [address] [place], [place], [id number] Calprotectin stoolOrdered By : Ese Hillman on 06-20-2024 Calprotectin stool 412 ug/g High 0-[address] [facility] Comment on above: Concentration Interp retation Follow-Up< 5 - 50 ug/g Normal None>50 -120 ug/g Borderline Re-evaluate in 4-6 weeks >120 ug/g Abnormal Repeat as clinically indicatedPerformed at: [employer] [id number] Director: Tom Colon MD, Phone: [phone] Stool Calprotectin 412 ug/g High 0-[address] [facility] Comment on above: Concentration Interp retation Follow-Up< 5 - 50 ug/g Normal None>50 -120 ug/g Borderline Re-evaluate in 4-6 weeks >120 ug/g Abnormal Repeat as clinically indicatedPerformed at: [employer] [id number] Director: Tom Colon MD, Phone: [phone] Cardiology Visit Reporton Cardiology Visit Report Normal [facility] Clostridium Diff Toxin/Agon 06-20-2024 CDIFF (EIA) Normal [facility] Comment on above: Performed By: #### M 100.637, M600.5000, M7400.3302, M100.6796, L7000.0700, M100.6795 ####[facility] [address] [facility] [address] [place], [place], [id number] Clostridium difficile detect ion by polymerase chain reactionOrdered By: Ese Hillman on 06-20-2024 C. difficile DNA MARCOS+probe Ql (Unsp spec) [facility] ENTERIC PATHOGEN PANEL STOOL on 06-20-2024 EP PANEL Normal [facility] Comment on above: Performed By: #### M 100.637, M600.5000, M7400.3302, M100.6796, L7000.0700, M100.6795 ####[facility] [address] [place], [address] Giardia lamblia antigen assa y by enzyme immunoassayOrdered By: Ese Hillman on 06-20-2024 Giardia Antigen (LATANYA) [facility] Ova and parasitesOrdered By: Ese Hillman on 06-20-2024 Ova and Parasites [facility] Stool Clostridium difficile detectionOrdered By: Ese Hillman on 06-20-2024 C. difficile Ql (Stl) [facility] Stool enteric pathogen panel by probe and target amplification methodOrdered By: Ese Hillman on 06-20-2024 Enteric Bacteriology [facility] Gastroenterology Visit Repor ton 06-19-2024 Gastroenterology Visit Report Normal [facility] L3410.9998on 06-18-2024 [facility] Comment on above: Order Comment: [id number] 4STOOL CULTURE Result Comment: BOB Palmer CULTURESalmonella/Shigella Screen Final ReportResult 1 NO Salmonella or Shigella recovered.Campylobacter Culture Final ReportResult 1 NO Campylobacter species isolated.E. coli Shiga Toxin EIA NEGATIVE ____ [facility]. ORIGINAL REPORT ON FILE IN LAB CONTAINS ADDITIONAL TEST SITE INFORMATION. Performed By: #### L 3410.9998 ####[facility] [address] [place], [place], [id number] MR/BMS.BVSon 06-12-2024 MR/BMS.BVS Normal [facility] CNOVon 06-04-2024 CNOV Office Visit (CARDWS ) ERI PRITCHARD ([id number]) 1940 F Date Time Provider Department 06/04/24 11:40 AM TERRENCE JANE During your visit today, we recorded the following information about you: Pulse Respiration Blood pressure Weight 63/minute 12/minute 142/64 64.9 kg Height 1.588 m Terrence Jane MD 06/04/2024 12:38 PM Signed Terrence Jane MD Interventional Cardiology [address] [place] [phone] Chief Complaint Patient presents with: Follow Up: [...] environmental all (more content not included)... Normal [facility] CNPNon 05-29-2024 CNPN Telephone (VASSMD) ERI PRITCHARD ([id number]) 1940 F Date Time Provider Department 05/29/24 MARY KAY DELGADO During your visit today, we recorded the following information about you: Judy Ramos RN 05/29/2024 9:53 AM Signed Patient [...] by mouth two times a day. Biote Holcombe 3+CoQ10 --30 mg of CoQ10 - oxybutynin [...] femoropopliteal bypass [Z98.890] 04/17/2024 Encounter Status:Closed by JUDY RAMOS on 05/29/24 Normal [facility] Basic Metabolic Profile (BMP )on 05-28-2024 BUN/CRE 31.9 RATIO High 10-20 [facility] Comment on above: Performed By: #### L 500.2500 ####[facility] [address] [place], [address] CA,Total 9.3 mg/dL Normal 8.5-10.1 [facility] Comment on above: Performed By: #### L 500.2500 ####[facility] [address] [place], [address] Chloride [Moles/Vol] 108 mmol/L High 98-107 [facility] Comment on above: Performed By: #### L 500.2500 ####[facility] [address] [place], [address] CO2 [Moles/Vol] 22.0 mmol/L Normal 21.0-32.0 [facility] Comment on above: Performed By: #### L 500.2500 ####[facility] [address] [place], [address] Creatinine [Mass/Vol] 1.13 mg/dL High 0.55-1.02 [facility] Comment on above: Result Comment: The validity of the calculated GFR GFRAA in patients over70 years has not been determined. Clinical correlation isessential. Performed By: #### L 500.2500 ####[facility] [address] [place], [address] EST GFR - AA 59 mL/min Low >60 [facility] Comment on above: Result Comment: Afri can [place] GFR Calc Performed By: #### L 500.2500 ####[facility] [address] [place], [address] GAP 6 Normal 5-15 [facility] Comment on above: Performed By: #### L 500.2500 ####[facility] [address] [place], [address] GFR/1.73 sq M.predicted among non-blacks MDRD (S/P/Bld) [Vol rate/Area] 49 mL/min/{1.73_m2} Low >60 [facility] Comment on above: Result Comment: Non- GFR Calc Performed By: #### L 500.2500 ####[facility] [address] [place], [address] Glucose [Mass/Vol] 182 mg/dL High 74-[address] [facility] Comment on above: Result Comment: Fast ing Glucose result greater than or equal to 126 mg/dLsuggests DIABETES MELLITUS per A.D.A. criteria. Performed By: #### L 500.2500 ####[facility] [address] [place], [address] Potassium [Moles/Vol] 4.5 mmol/L Normal 3.5-5.1 [facility] Comment on above: Performed By: #### L 500.2500 ####[facility] [address] [place], [address] Sodium [Moles/Vol] 136 mmol/L Normal 136-[address] [facility] Comment on above: Performed By: #### L 500.2500 ####[facility] [address] [place], [address] Urea nitrogen [Mass/Vol] 36 mg/dL High 7-18 [facility] Comment on above: Performed By: #### L 500.2500 ####[facility] [address] [place], [address] Blood urea nitrogen (BUN)/cr eatinine ratioOrdered By: Roly Herrera on 05-28-2024 Urea nitrogen/Creatinine [Mass ratio] 31.9 mg/mg High 10-20 [facility] Carbon dioxide measurementOr dered By: Roly Herrera on 05-28-2024 CO2 [Moles/Vol] 22.0 mmol/L 21.0-32.0 [facility] Chloride measurementOrdered By: Roly Herrera on 05-28-2024 Chloride [Moles/Vol] 108 mmol/L High 98-107 [facility] Estimated glomerular filtrat ion rate (GFR) AmericanOrdered By: Roly Herrera on 05-28-2024 Estimated GFR (MDRD) Amer 59 mL/min Low >60 [facility] Comment on above: GFR Calc Glomerular filtration rate ( GFR) estimationOrdered By: Roly Herrera on 05-28-2024 Estimated GFR (MDRD) Non-Af Amer 49 mL/min Low >60 [facility] Comment on above: Non- GFR Calc Glucose measurementOrdered B y: Roly Herrera on 05-28-2024 Glucose [Mass/Vol] 182 mg/dL High 74-[address] [facility] Comment on above: Fasting Glucose resu lt greater than or equal to 126 mg/dL suggests DIABETES MELLITUS per A.D.A. criteria. Potassium measurementOrdered By: Roly Herrera on 05-28-2024 Potassium [Moles/Vol] 4.5 mmol/L 3.5-5.1 [facility] Serum anion gap measurementO rdered By: Roly Herrera on 05-28-2024 Anion gap [Moles/Vol] 6 mmol/L 5-15 [facility] Serum or plasma calcium walker urement (mass/volume)Ordered By: Roly Herrera on 05-28-2024 Calcium [Mass/Vol] 9.3 mg/dL 8.5-10.[address] [facility] Serum or plasma creatinine m easurement (mass/volume)Ordered By: Roly Herrera on 05-28-2024 Creatinine [Mass/Vol] 1.13 mg/dL High 0.55-1.02 [facility] Comment on above: The validity of the calculated GFR & GFRAA in patients over 70 years has not been determined. Clinical correlation is essential. Serum or plasma urea nitroge n measurement (mass/volume)Ordered By: Roly Herrera on 05-28-2024 Urea nitrogen [Mass/Vol] 36 mg/dL High 7-18 [facility] Sodium levelOrdered By: Reymundo Herrera on 05-28-2024 Sodium [Moles/Vol] 136 mmol/L 136-145 [facility] Art Duplex Unilat Lower E xton 05-28-2024 Art Duplex Unilat Lower Ext Normal [facility] CNPNon 05-23-2024 CNPN Telephone (INTMWS) ERI PRITCHARD ([id number]) 1940 F Date Time Provider Department 05/23/24 KIERRA SANTIAGO INTWS During your visit today, we recorded the following information about you: Emily Bustos LPN 05/23/2024 11:25 AM Signed Last INR: INR (POCT) 2.1 05/23/2024 Current dose of coumadin is: 3 mg and Tue and 2 mg all other [...] again. Emily Bustos LPN ROUTING TO PROVIDER TUBE ROLLER DR. KOCH. PT'S PROVIDER /TEAM IS OUT. [...] (HCC) [D68.2] Order(s):PROTHROMBIN TIME [SQPT] Order #: [id number] Prescriptions as of 05/23/2024 - potassium chloride [...] by mouth two times a day. Biote Holcombe 3+CoQ10 --30 mg of CoQ10 - oxybutynin [...] Status:Closed by CONCETTA SANCHEZ on 05/23/24 Normal [facility] PT panel Coag (PPP)on 2024 INR Coag (Bld) [Relative time] 2.1 {INR} [facility] CNPTyesha 05-21-2024 CNPN Telephone (CARDWS) MACHOERI Crow ([id number]) 1940 F Date Time Provider Department 05/21/24 TERRENCE JANE During your visit today, we recorded the following information about you: Glenda Raymundo RN 05/21/2024 5:12 PM Signed ----- Message from Terrence Jane MD sent at 05/18/2024 5:37 PM EST ----- Normal Echo Please Inform the patient Glenda Montero RN 05/21/2024 5:13 PM Signed Patient called and notified. Glenda Raymundo RN Allergies As of Date: 05/21/2024 [...] by mouth two times a day. 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 Qasim also reports that patient saw Dr. Roly Herrera [employer] and patient was started on losartan/hctz 100-12.5 [...] cardiology. How will patient get INR after N no longer following. Noted INR down again. Take 3 mg then increase to 2 mg daily except 3 mg on Sundays. INR next Tuesday Krys Townsend, XOCHILT 05/17/2024 1:35 PM Signed Called and left a detailed voicemail notifying Qasim from [facility] of providers message. Clinic phone number was left in case he had any questions. Pt called and is notified of providers results and instructions. Pt voices understanding. She states she will come back to the [facility] when she doesn't have HH anymore. Updated Anticoag tracker. Krys Townsend RN Allergies As of Date: 05/16/2024 [...] (HCC) [D68.2] Order(s):PROTHROMBIN TIME [SQPT] Order #: [id number] Prescriptions as of 05/18/2024 - potassium chloride [...] Each by mouth two times a day. [employer] 3+CoQ10 --30 mg of CoQ10 - oxybutynin [...] Status:Closed by PRERNA SALGADO on 05/18/24 Normal [facility] PT panel Coag (PPP)on 2024 INR Coag (Bld) [Relative time] 1.5 (ext) 2.0 - 3.0 [facility] 12 Lead EKG performed by BMS on 05-14-2024 12 Lead EKG performed by BMS Normal [facility] Cardiology Visit Reporton Cardiology Visit Report Normal [facility] Coco 05-09-2024 [facility]INTWS[facility] ERI PRITCHARD ([id number]) 1940 F Date Time Provider Department 05/09/24 KIERRA SANTIAGO INTMWS During your visit today, we recorded the following information about you: Noemi Cullen RN 05/09/2024 1:28 PM Addendum Qasim, Nurse with [facility] calling with an update on [...] if they want to adjust meds otherwise. Daisy Atkins LPN 05/09/2024 4:14 PM Signed PATIENT [...] Anticoagulation [8] Order(s):PROTHROMBIN TIME [SQPT] Order #: [id number] Prescriptions as of 05/09/2024 - iv contrast [...] by mouth two times a day. Biote Holcombe 3+CoQ10 --30 mg of CoQ10 - oxybutynin [...] 2 diab (more content not included)... Normal [facility] PT panel Coag (PPP)on 2024 INR Coag (Bld) [Relative time] 1.9 {INR} [facility] Comment on above: EXT [facility] CNOVon 05-08-2024 CNOV Office Visit (VASSWS ) ERI PRITCHARD ([id number]) 1940 F Date Time Provider Department 05/08/24 9:00 AM MARY KAY DELGADO VASSWS During your visit today, we recorded the following information about you: Pulse Blood pressure 55/minute 117/54 Mary Kay Delgado, 05/08/2024 9:29 AM Signed [facility] [place] DEPARTMENT OF VASCULAR SURGERY OUTPATIENT VISIT DATE [...] she underwent revascularization with Dr. Rojas at [facility]. At that time she was also [...] by mouth two times a day. Biote Holcombe 3+CoQ10 --30 mg of CoQ10 ALLERGIES: ALLERGIES [...] artery: Patent. (more content not included)... Normal [facility] ECHOon 05-08-2024 Echocardiography Echocardiography Report: Transthoracic Echo [facility] Date of service: 05/08/2024 10:05:58 AM ADMINISTRATIVE ASSISTANT Ordering physician: TERRENCE JANE Indication: Ascending aortic aneurysm Technologist: Prerna Krause [facility] Interpreting physician: Eugene Christianson MD PATIENT: [...] - Exam was compared with the prior echocardiographic exam performed on 11/14/2023 (Stress). The mid and distal ascending aorta has slightly increased in size. * * * Final * * * [employer] Image : [id number] Normal [facility] CAROTID ARTERIES KWADWO VAS LABon 05-08-2024 CAROTID ARTERIES [facility]AD[facility] LAB Non-Invasive Vascular Laboratory [facility] Carotid Duplex Bilateral/Complete Date of service/time: 05/08/2024 8:01:22 AM Name: ERI PRITCHARD Date of : 1940 Age: 83 [...] interpretation criteria are used as recommended by [facility] [employer]. When compared with the prior [...] noted. Subclavian artery: Patent. Technologist: Madeleine Gayle RVT [facility] Ordering physician: MARY KAY DELGADO Interpreting physician: AGUSTÍN Crow DO Final CC [employer] Image : [id number] sSISUID See Link below for Image Normal [facility] Coco 05-03-2024 [facility] Telephone (INTMWS) MACHOERI ([id number]) 1940 F Date Time Provider Department 05/03/24 KIERRA SANTIAGO During your visit today, we recorded the following information about you: Lisseth Vaughn, RN 05/03/2024 3:17 PM Signed Qasim [facility] nurse calling in as pt changed [...] to return call unless orders. Anastasiia Colón APRN.STUDENT EDUCATION SPECIALIST 05/03/2024 3:21 PM Signed Monitor BP and let us know if remains elevated above 150 systolic Bekah Vivas LPN 05/03/2024 3:33 PM Signed Qasim [facility] nurse was notified of providers message [...] by mouth two times a day. Biote Holcombe 3+CoQ10 --30 mg of CoQ10 - oxybutynin [...] Encounter Status:Closed by BEKAH VIVAS on 05/03/24 Normal [facility] CNPTyesha 05-01-2024 CNPN Telephone (INTMWS) ERI PRITCHARD ([id number]) 1940 F Date Time Provider Department 05/01/24 KIERRA SANTIAGO INTMWS During your visit today, we recorded the following information about you: Prerna Salgado RN 05/01/2024 9:30 AM Signed Qasim from [facility] HH calls with updated INR and BP. [...] up if gets low again under 90. Krys Townsend RN 05/03/2024 8:10 AM Signed Called and left a detailed voicemail notifying Qasim from [facility] of providers message. Clinic phone number was left in case he had any questions. Krys Townsend RN Allergies As of Date: 05/01/2024 [...] Anticoagulation [8] Order(s):PROTHROMBIN TIME [SQPT] Order #: [id number] Prescriptions as of 05/03/2024 - potassium chloride [...] by mouth two times a day. [employer] Hol[employer] 3+CoQ10 --30 mg of CoQ10 - oxybutynin [...] femoropopliteal bypass [Z98.890] 04/17/2024 Encounter Status:Closed by KRYS TOWNSEND on 05/03/24 Normal [facility] PT panel Coag (PPP)on 2023 INR Coag (Bld) [Relative time] 2.5 (ext) 2.0 - 3.0 [facility] Coco 04-30-2024 CNPN Telephone (FAMPWS) ERI PRITCHARD ([id number]) 1940 F Date Time Provider Department 04/30/24 KIERRA SANTIAGO [facility] During your visit today, we recorded the following information about you: Zoey Tom LPN 04/30/2024 2:18 PM Signed Le with [facility] calls to report she has to [...] Encounter Status:Closed by ZOEY TOM [facility] Tele[facility] (INTMWS) ERI PRITCHARD ([id number]) 1940 F Date Time Provider Department 04/27/24 KIERRA SANTIAGO INTMWS During your visit today, we recorded the following information about you: Olga Lidia Eubanks MA 04/27/2024 11:00 AM Signed Type of form: Home Health Care Orders Form received via fax When form is completed, Fax form to [phone] Form has been forwarded to Physician Desk: JEFERSON Nuñez Liza D, MD 04/29/2024 6:48 PM Signed Verify form faxed back Bekah Vivas LPN 04/30/2024 4:07 PM Signed Forms at nurse's pod for signature Kierra Santiago MD 04/30/2024 11:56 PM Signed Signed Bekah Vivas LPN 05/01/2024 8:54 AM Signed Form faxed back to [facility] Home Health Allergies As of Date: 04/27/2024 Noted Allergy Reaction ACCUPRIL (QUINAPRIL) 04/14/2015 16 - Unknown CALAN (VERAPAMIL) 04/14/2015 16 - Unknown CYMBALTA (DULOXETINE) 03/01/2024 5 - Intolerance Comments: dizziness LOTENSIN (BENAZEPRIL HCL) 04/14/2015 16 - Unknown SULFA (SULFONAMIDE ANTIBIOTICS) 04/14/2015 16 - Unknown Date Reviewed: 04/23/2024 Reviewed by: Terrence Jane MD - Fully Assessed Reason for Visit: Forms [443] Cmt: certificate plan of care 04/09/24 Prescriptions [...] Each by mouth two times a day. [employer] 3+CoQ10 --30 mg of CoQ10 - oxybutynin [...] Status:Closed by BEKAH VIVAS on 05/01/24 Normal [facility] Basic Metabolic Profile (BMP )on 04-24-2024 BUN Normal 7-18 [facility] Comment on above: Result Comment: Canc elled via OM: Order cancelled - Patient discharged Performed By: #### L 100.0100, L500.2500 ####[facility] [address] [place], [address] BUN/CRE Normal 10-20 [facility] Comment on above: Result Comment: Canc elled via OM: Order cancelled - Patient discharged Performed By: #### L 100.0100, L500.2500 ####[facility] [address] [place], [address] CA,Total Normal 8.5-10.1 [facility] Comment on above: Result Comment: Canc elled via OM: Order cancelled - Patient discharged Performed By: #### L 100.0100, L500.2500 ####[facility] [address] [place], [address] CL Normal 98-107 [facility] Comment on above: Result Comment: Canc elled via OM: Order cancelled - Patient discharged Performed By: #### L 100.0100, L500.2500 ####[facility] [address] [place], [address] CO2 Normal 21.0-32.0 [facility] Comment on above: Result Comment: Canc elled via OM: Order cancelled - Patient discharged Performed By: #### L 100.0100, L500.2500 ####[facility] [address] [place], [address] CREAT,SERUM Normal 0.55-1.02 [facility] Comment on above: Result Comment: Canc elled via OM: Order cancelled - Patient discharged Performed By: #### L 100.0100, L500.2500 ####[facility] [address] [place], [address] EST GFR Normal >60 [facility] Comment on above: Result Comment: Canc elled via OM: Order cancelled - Patient discharged Performed By: #### L 100.0100, L500.2500 ####[facility] [address] [place], [address] EST GFR - AA Normal >60 [facility] Comment on above: Result Comment: Canc elled via OM: Order cancelled - Patient discharged Performed By: #### L 100.0100, L500.2500 ####[facility] [address] [place], [address] GAP Normal 5-15 [facility] Comment on above: Result Comment: Canc elled via OM: Order cancelled - Patient discharged Performed By: #### L 100.0100, L500.2500 ####[facility] [address] [place], [address] GLU Normal 74-106 [facility] Comment on above: Result Comment: Canc elled via OM: Order cancelled - Patient discharged Performed By: #### L 100.0100, L500.2500 ####[facility] [address] [place], [address] Potassium Normal 3.5-5.1 [facility] Comment on above: Result Comment: Canc elled via OM: Order cancelled - Patient discharged Performed By: #### L 100.0100, L500.2500 ####[facility] [address] [place], [address] Basic Metabolic Profile (BMP) Normal 136-145 [facility] Comment on above: Result Comment: Canc elled via OM: Order cancelled - Patient discharged Performed By: #### L 100.0100, L500.2500 ####[facility] [address] [place], [address] CBC W/Diff, Automatedon 12-2 Absolute Neut Normal 2.0-7.7 [facility] Comment on above: Result Comment: Canc elled via OM: Order cancelled - Patient discharged Performed By: #### L 100.0100, L500.2500 ####[facility] [address] [place], [address] HCT Normal 37-47 [facility] Comment on above: Result Comment: Canc elled via OM: Order cancelled - Patient discharged Performed By: #### L 100.0100, L500.2500 ####[facility] [address] [place], [address] HGB Normal 12.0-15.0 [facility] Comment on above: Result Comment: Canc elled via OM: Order cancelled - Patient discharged Performed By: #### L 100.0100, L500.2500 ####[facility] [address] [place], [address] MCH Normal 27.0-32.0 [facility] Comment on above: Result Comment: Canc elled via OM: Order cancelled - Patient discharged Performed By: #### L 100.0100, L500.2500 ####[facility] [address] [place], [address] MCHC Normal 32-36 [facility] Comment on above: Result Comment: Canc elled via OM: Order cancelled - Patient discharged Performed By: #### L 100.0100, L500.2500 ####[facility] [address] [place], [address] MCV Normal 81-99 [facility] Comment on above: Result Comment: Canc elled via OM: Order cancelled - Patient discharged Performed By: #### L 100.0100, L500.2500 ####[facility] [address] [place], [address] NEUT% Normal 47-70 [facility] Comment on above: Result Comment: Canc elled via OM: Order cancelled - Patient discharged Performed By: #### L 100.0100, L500.2500 ####[facility] [address] [place], [address] PLT Normal 150-450 [facility] Comment on above: Result Comment: Canc elled via OM: Order cancelled - Patient discharged Performed By: #### L 100.0100, L500.2500 ####[facility] [address] [place], [address] RBC Normal 4.2-5.4 [facility] Comment on above: Result Comment: Canc elled via OM: Order cancelled - Patient discharged Performed By: #### L 100.0100, L500.2500 ####[facility] [address] [place], [address] RDW CV Normal 11.6-14.6 [facility] Comment on above: Result Comment: Canc elled via OM: Order cancelled - Patient discharged Performed By: #### L 100.0100, L500.2500 ####[facility] [address] [place], [address] RDW SD Normal 35.1-43.9 [facility] Comment on above: Result Comment: Canc elled via OM: Order cancelled - Patient discharged Performed By: #### L 100.0100, L500.2500 ####[facility] [address] [place], [place], [address] WBC Normal 4.4-11.0 [facility] Comment on above: Result Comment: Gloria ellvenice via OM: Order cancelled - Patient discharged Performed By: #### L 100.0100, L500.2500 ####[facility] [address] [place], [place], [address] CNOVon 04-23-2024 CNOV Office Visit (CAWSTR ) ERI PRITCHARD ([id number]) 1940 F Date Time Provider Department 04/23/24 3:00 PM TERRENCE JANE CAWSTR During your visit today, we recorded the following information about you: Pulse Respiration Blood pressure Weight 69/minute 12/minute 178/56 64.9 kg Height 1.588 m Terrence Jane MD 04/23/2024 3:01 PM Signed Terrence Jane MD Interventional Cardiology [address] [place], [place] [address] [phone] Chief Complaint Patient presents with: New: was at admitted at [facility]- dx CHF and a-fib HISTORY OF [...] by mouth two times a day. [employer] Hol[employer] 3+CoQ10 --30 mg of CoQ10 oxybutynin ER [...] chest gualberto (more content not included)... Normal [facility] 04-23-2024 [facility] Telephone (INTMWS) ERI PRITCHARD ([id number]) 1940 F Date Time Provider Department 04/23/24 KIERRA SANTIAGO INTMWS During your visit today, we recorded the following information about you: Emily Bustos LPN 04/23/2024 11:30 AM Signed Elissa with [facility] called and they saw pt today but did not do an INR. Pt has apt with Cardiology at the [facility] and Elissa will call and have pt go early and get INR done at the [facility] and it will then come to [...] MD - Fully Assessed Reason for Visit: [facility] - INR message [Other] Prescriptions as [...] by mouth two times a day. Bi[employer] Hol[employer] 3+CoQ10 --30 mg of CoQ10 - oxybutynin [...] Status:Closed by NOEMI CULLEN on 04/24/24 Normal [facility] PT panel Coag (PPP)on 2023 INR Coag (PPP) [Relative time] 4.1 {INR} High 0.9-1.3 [facility] Comment on above: Order Comment: Miguel cunningham Type: BLOOD SPECIMEN Ordering Facility: [facility] Address: [address] [place] [address] Result Comment: Geetha min K Antagonist (VKA) Therapeutic Range: INR 2 to 3 (Target INR of 2.5) Note: For patients treated with VKA drugs, such as warfarin, the [employer]icians 2012 Guideline recommends [...] WILLIAM, et al. Chest 2012, 141:7S-47S Jovanna RA, et al. JACC 2017, 70: 252-289 Performed By: #### 3 4528-0 #### [facility] [id number] [address] [place] [address] [place] PT Coag (PPP) [Time] 38.8 s High <13.1 [facility] Comment on above: Order Comment: Miguel cunningham Type: BLOOD SPECIMEN Ordering Facility: [facility] Address: [address] [place] [address] Performed By: #### 3 4528-0 #### [facility] CLIA [id number] [address] [place] [address] [place] Prothrombin Time w/INRon INR Normal [facility] Comment on above: Result Comment: Canc elled via OM: Order cancelled - Patient discharged Performed By: #### L 300.3900 ####[facility] [address] [place], [place], [address] PROTIME Normal 11.7-14.9 [facility] Comment on above: Result Comment: Canc elled via OM: Order cancelled - Patient discharged Performed By: #### L 300.3900 ####[facility] [address] [place], [address] CNPNon 04-18-2024 [facility] Telephone (INTMWS) ERI PRITCHARD ([id number]) 1940 F Date Time Provider Department 04/18/24 KIERRA SANTIAGO INTMWS During your visit today, we recorded the following information about you: Cecilio Guadarrama RN 04/18/2024 2:43 PM Signed Last INR: INR (POCT) 3.3 EXT 04/18/2024 Current dose of coumadin is: Coumadin 2 mg. Kusum reports patient started 2 mg dose this morning. PerAnastasiia'nayely OV notes patient was to hold until INR drawn today. Last date of dose change: 04/16/2024. Previous INR (date and result): 5.1 EXT on 04/16/2024 Additional Clinical Information or narrative: yes: No dietary changes, antibiotics, unusual bleeding or bruising. Kusum requests that Qasim LEMON CM be contacted with further orders at [phone]. Kierra Santiago MD 04/19/2024 6:01 PM Signed Noted patient already started taking 2 mg dose yesterday. Okay 2 mg daily dose for now Recheck next Tuesday. Daisy Atkins LPN 04/20/2024 9:16 AM Signed Kusum and patient made aware. This encounter has been faxed to [facility]. Allergies As of Date: 04/18/2024 Noted [...] (HCC) [D68.2] Order(s):PROTHROMBIN TIME [SQPT] Order #: [id number] Prescriptions as of 04/20/2024 - potassium chloride [...] by mouth two times a day. Biote Holcombe 3+CoQ10 --30 mg of CoQ10 - oxybutynin [...] femoropopliteal bypass [Z98.890] 04/17/2024 Encounter Status:Closed by DAISY ATKINS on 04/20/24 Normal [facility] PT panel Coag (PPP)on 2023 INR Coag (Bld) [Relative time] 3.3 EXT 2.0 - 3.[address] [facility] INR resulted on 04/18/2024 at Home with [facility] HH fingerstick INR. Cecilio Guadarrama RN [facility] Basic Metabolic Profile (BMP )on 04-17-2024 BUN Normal 7-18 [facility] Comment on above: Result Comment: Canc elled via OM: Order cancelled - Patient discharged Performed By: #### L 100.0100, L500.2500 ####[facility] [address] [place], [address] BUN/CRE Normal 10-20 [facility] Comment on above: Result Comment: Canc elled via OM: Order cancelled - Patient discharged Performed By: #### L 100.0100, L500.2500 ####[facility] [address] [place], [address] CA,Total Normal 8.5-10.1 [facility] Comment on above: Result Comment: Canc elled via OM: Order cancelled - Patient discharged Performed By: #### L 100.0100, L500.2500 ####[facility] [address] [place], [address] CL Normal 98-107 [facility] Comment on above: Result Comment: Canc elled via OM: Order cancelled - Patient discharged Performed By: #### L 100.0100, L500.2500 ####[facility] [address] [place], [address] CO2 Normal 21.0-32.0 [facility] Comment on above: Result Comment: Canc elled via OM: Order cancelled - Patient discharged Performed By: #### L 100.0100, L500.2500 ####[facility] [address] [place], [address] CREAT,SERUM Normal 0.55-1.02 [facility] Comment on above: Result Comment: Canc elled via OM: Order cancelled - Patient discharged Performed By: #### L 100.0100, L500.2500 ####[facility] [address] [place], [address] EST GFR Normal >60 [facility] Comment on above: Result Comment: Canc elled via OM: Order cancelled - Patient discharged Performed By: #### L 100.0100, L500.2500 ####[facility] [address] [place], [address] EST GFR - AA Normal >60 [facility] Comment on above: Result Comment: Canc elled via OM: Order cancelled - Patient discharged Performed By: #### L 100.0100, L500.2500 ####[facility] [address] [place], [address] GAP Normal 5-15 [facility] Comment on above: Result Comment: Canc elled via OM: Order cancelled - Patient discharged Performed By: #### L 100.0100, L500.2500 ####[facility] [address] [place], [address] GLU Normal 74-106 [facility] Comment on above: Result Comment: Canc elled via OM: Order cancelled - Patient discharged Performed By: #### L 100.0100, L500.2500 ####[facility] [address] [place], [address] Potassium Normal 3.5-5.1 [facility] Comment on above: Result Comment: Canc elled via OM: Order cancelled - Patient discharged Performed By: #### L 100.0100, L500.2500 ####[facility] [address] [place], [address] Basic Metabolic Profile (BMP) Normal 136-145 [facility] Comment on above: Result Comment: Canc elled via OM: Order cancelled - Patient discharged Performed By: #### L 100.0100, L500.2500 ####[facility] [address] [place], [address] CBC W/Diff, Automatedon 12-1 Absolute Neut Normal 2.0-7.7 [facility] Comment on above: Result Comment: Canc elled via OM: Order cancelled - Patient discharged Performed By: #### L 100.0100, L500.2500 ####[facility] [address] [place], [address] HCT Normal 37-47 [facility] Comment on above: Result Comment: Canc elled via OM: Order cancelled - Patient discharged Performed By: #### L 100.0100, L500.2500 ####[facility] [address] [place], [address] HGB Normal 12.0-15.0 [facility] Comment on above: Result Comment: Canc elled via OM: Order cancelled - Patient discharged Performed By: #### L 100.0100, L500.2500 ####[facility] [address] [place], [address] MCH Normal 27.0-32.0 [facility] Comment on above: Result Comment: Canc elled via OM: Order cancelled - Patient discharged Performed By: #### L 100.0100, L500.2500 ####[facility] [address] [place], [address] MCHC Normal 32-36 [facility] Comment on above: Result Comment: Canc elled via OM: Order cancelled - Patient discharged Performed By: #### L 100.0100, L500.2500 ####[facility] [address] [place], [address] MCV Normal 81-99 [facility] Comment on above: Result Comment: Canc elled via OM: Order cancelled - Patient discharged Performed By: #### L 100.0100, L500.2500 ####[facility] [address] [place], [address] NEUT% Normal 47-70 [facility] Comment on above: Result Comment: Canc elled via OM: Order cancelled - Patient discharged Performed By: #### L 100.0100, L500.2500 ####[facility] [address] [place], [address] PLT Normal 150-450 [facility] Comment on above: Result Comment: Canc elled via OM: Order cancelled - Patient discharged Performed By: #### L 100.0100, L500.2500 ####[facility] [address] [place], [address] RBC Normal 4.2-5.4 [facility] [facility] Comment on above: Result Comment: Canc elled via OM: Order cancelled - Patient discharged Performed By: #### L 100.0100, L500.2500 ####[facility] [address] [place], [address] RDW CV Normal 11.6-14.6 [facility] Comment on above: Result Comment: Canc elled via OM: Order cancelled - Patient discharged Performed By: #### L 100.0100, L500.2500 ####[facility] [address] [place], [address] RDW SD Normal 35.1-43.9 [facility] Comment on above: Result Comment: Canc elled via OM: Order cancelled - Patient discharged Performed By: #### L 100.0100, L500.2500 ####[facility] [address] [place], [address] WBC Normal 4.4-11.0 [facility] Comment on above: Result Comment: Canc elled via OM: Order cancelled - Patient discharged Performed By: #### L 100.0100, L500.2500 ####[facility] [address] [place], [address] CNOVon 04-17-2024 CNOV Office Visit (INTMWS ) ERI PRITCHARD ([id number]) 1940 F Date Time Provider Department 04/17/24 11:20 AM ANASTASIIA COLÓN INTMWS During your visit today, we recorded the following information about you: Pulse 61/minute Anastasiia Colón, [employer].STUDENT EDUCATION SPECIALIST 04/17/2024 1:48 PM Signed SUBJECTIVE: RSV Vaccine(1 [...] for hospital discharge follow-up visit. She has [facility]. She was admitted to [facility] March 19 through April 05. She [...] rehab for debility. Discharged to home with [facility] home care. Today reports eating and drinking normally. No bowel or bladder complaints. She has [facility] coming out to her home. She has an appointment coming up with her animal care provider Dr. Blanca. She reports no upcoming appointment [...] (SENNA-S) 8.6- (more content not included)... Normal [facility] 04-16-2024 [facility] Telephone (INTMWS) ERI PRITCHARD ([id number]) 1940 F Date Time Provider Department 04/16/24 KIERRA SANTIAGO INTWS During your visit today, [...] Anastasiia tomorrow 04/17. Call back number is [phone]. XOCHILT Sen Liza D, MD 04/16/2024 10:41 AM Signed Hold today and tomorrow then get INR Tuesday as noted. Can discuss with Anastasiia tomorrow about prior coumadin dosing Cecilio Guadarrama RN 04/16/2024 10:56 AM Signed Call placed to patient and Qasim with [facility]. Spoke to both with verbalized understanding. 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 - argin/glut/CaHMB/colla g/mv-min (RONALDO, WITH COLLAGEN, ORAL) Take by mouth. - [...] by mouth two times a day. Biote Holcombe 3+CoQ10 --30 mg of CoQ10 - cholecalciferol [...] Encounter Status:Closed by CECILIO GUADARRAMA on 04/16/24 Normal [facility] Telephone (INTMWS) ERI PRITCHARD ([id number]) 1940 F Date Time Provider Department 04/16/24 KIERRA SANTIAGO INTMWS During your visit today, we recorded the following information about you: Noemi Cullen RN 04/16/2024 2:43 PM Signed Jaylan with [facility] calling with patient's Physical Therapy plan [...] Date Reviewed: 02/23/2024 Reviewed by: Anastasiia Colón APRN.STUDENT EDUCATION SPECIALIST - Fully Assessed Reason for Visit: Physical [...] mg iron) tab Take by mouth. - argin/glut/CaHMB/colla g/mv-min (RONALDO, WITH COLLAGEN, ORAL) Take by mouth. - [...] by mouth two times a day. Biote Holcombe 3+CoQ10 --30 mg of CoQ10 - cholecalciferol [...] Status:Closed by KIERRA SANTIAGO on 04/16/24 Normal [facility] PT panel Coag (PPP)on 2023 INR Coag (Bld) [Relative time] 5.1 EXT 2.0 - 3.[address] [facility] INR resulted on 04/16/2024 at home with [facility]. Cecilio Guadarrama RN [facility] Prothrombin Time w/INRon INR Normal [facility] Comment on above: Result Comment: Canc elled via OM: Order cancelled - Patient discharged Performed By: #### L 3003900 ####[facility] [address] [place], [place], [id number] PROTIME Normal 11.7-14.9 [facility] Comment on above: Result Comment: Canc elled via OM: Order cancelled - Patient discharged Performed By: #### L 3003900 ####[facility] [address] [place], [address] CNPNon 04-13-2024 CNPN Telephone (INTWS) MACHOERI ([id number]) 1940 F Date Time Provider Department 04/13/24 KIERRA SANTIAGO INTKishaWS During your visit today, we recorded the following information about you: Cecilio Guadarrama RN 04/13/2024 9:10 AM Signed Elli with [facility] calls to request a delay in start of care for PT. Elli would like to move the visit to next week d/t patient having an appointment today. Elli requests a call back at [phone]. XOCHILT Sen Terri, APRN.STUDENT EDUCATION SPECIALIST 04/13/2024 12:39 PM Signed [facility] Cecilio Guadarrama RN 04/13/2024 4:29 PM Signed Call placed to Elli with [facility] and notified of below message with understanding. Cecilio Guadarrama RN Allergies As of Date: 04/13/2024 Noted Allergy Reaction ACCUPRIL (QUINAPRIL) 04/14/2015 16 - Unknown CALAN (VERAPAMIL) 04/14/2015 16 - Unknown CYMBALTA (DULOXETINE) 03/01/2024 5 - Intolerance Comments: dizziness LOTENSIN (BENAZEPRIL HCL) 04/14/2015 16 - Unknown SULFA (SULFONAMIDE ANTIBIOTICS) 04/14/2015 16 - Unknown Date Reviewed: 02/23/2024 Reviewed by: Anastasiia Colón APRN.STUDENT EDUCATION SPECIALIST - Fully Assessed Reason for Visit: Orders [...] mg iron) tab Take by mouth. - argin/glut/CaHMB/colla g/mv-min (RONALDO, WITH COLLAGEN, ORAL) Take by mouth. - [...] by mouth two times a day. Biote Holcombe 3+CoQ10 --30 mg of CoQ10 - cholecalciferol [...] Status:Closed by CECILIO GUADARRAMA on 04/13/24 Normal [facility] Prothrombin Time w/INRon INR Normal [facility] Comment on above: Result Comment: Canc elled via OM: Order cancelled - Patient discharged Performed By: #### L 300.3900 ####[facility] [address] [place], [place], [address] PROTIME Normal 11.7-14.9 [facility] Comment on above: Result Comment: Canc elled via OM: Order cancelled - Patient discharged Performed By: #### L 300.3900 ####[facility] [address] [place], [place], [address] CNPNon 04-11-2024 CNPN Telephone (INTMWS) ERI PRITCHARD ([id number]) 1940 F Date Time Provider Department 04/11/24 KIERRA SANTIAGO INTMWS During your visit today, we recorded the following information about you: Stacia Bruce LPN 04/11/2024 9:36 AM Signed Moisés nurse with [facility] calling, asking if PCP saw that [...] mg daily and recheck INR next Tuesday eBkah Vivas LPN 04/12/2024 9:38 AM Signed Spoke [...] 04/12/2024 9:38 AM Signed Attempted to contact Moisés nurse with [facility] but no answer. Left providers message [...] Date Reviewed: 02/23/2024 Reviewed by: Anastasiia Colón APRN.STUDENT EDUCATION SPECIALIST - Fully Assessed Reason for Visit: Question [...] mg iron) tab Take by mouth. - argin/glut/CaHMB/colla g/mv-min (RONALDO, WITH COLLAGEN, ORAL) Take by mouth. - [...] by mouth two times a day. Biote Holcombe 3+CoQ10 --30 mg of CoQ10 - cholecalciferol [...] 03/15/2023 Factor (more content not included)... Normal [facility] Basic Metabolic Profile (BMP )on 04-10-2024 BUN Normal 7-18 [facility] Comment on above: Result Comment: Canc elled via OM: Order cancelled - Patient discharged Performed By: #### L 100.0100, L500.2500 ####[facility] [address] [place], [address] BUN/CRE Normal 10-20 [facility] Comment on above: Result Comment: Canc elled via OM: Order cancelled - Patient discharged Performed By: #### L 100.0100, L500.2500 ####[facility] [address] [place], [address] CA,Total Normal 8.5-10.1 [facility] Comment on above: Result Comment: Canc elled via OM: Order cancelled - Patient discharged Performed By: #### L 100.0100, L500.2500 ####[facility] [address] [place], [address] CL Normal 98-107 [facility] Comment on above: Result Comment: Canc elled via OM: Order cancelled - Patient discharged Performed By: #### L 100.0100, L500.2500 ####[facility] [address] [place], [address] CO2 Normal 21.0-32.0 [facility] Comment on above: Result Comment: Canc elled via OM: Order cancelled - Patient discharged Performed By: #### L 100.0100, L500.2500 ####[facility] [address] [place], [address] CREAT,SERUM Normal 0.55-1.02 [facility] Comment on above: Result Comment: Canc elled via OM: Order cancelled - Patient discharged Performed By: #### L 100.0100, L500.2500 ####[facility] [address] [place], [address] EST GFR Normal >60 [facility] Comment on above: Result Comment: Canc elled via OM: Order cancelled - Patient discharged Performed By: #### L 100.0100, L500.2500 ####[facility] [address] [place], [address] EST GFR - AA Normal >60 [facility] Comment on above: Result Comment: Canc elled via OM: Order cancelled - Patient discharged Performed By: #### L 100.0100, L500.2500 ####[facility] [address] [place], [address] GAP Normal 5-15 [facility] Comment on above: Result Comment: Canc elled via OM: Order cancelled - Patient discharged Performed By: #### L 100.0100, L500.2500 ####[facility] [address] [place], [address] GLU Normal 74-106 [facility] Comment on above: Result Comment: Canc elled via OM: Order cancelled - Patient discharged Performed By: #### L 100.0100, L500.2500 ####[facility] [address] [place], [address] Potassium Normal 3.5-5.1 [facility] Comment on above: Result Comment: Canc elled via OM: Order cancelled - Patient discharged Performed By: #### L 100.0100, L500.2500 ####[facility] [address] [place], [address] Basic Metabolic Profile (BMP) Normal 136-145 [facility] Comment on above: Result Comment: Canc elled via OM: Order cancelled - Patient discharged Performed By: #### L 100.0100, L500.2500 ####[facility] [address] [place], [address] CBC W/Diff, Automatedon 12-1 0-2023 Absolute Neut Normal 2.0-7.7 [facility] Comment on above: Result Comment: Canc elled via OM: Order cancelled - Patient discharged Performed By: #### L 100.0100, L500.2500 ####[facility] [address] [place], [address] HCT Normal 37-47 [facility] Comment on above: Result Comment: Canc elled via OM: Order cancelled - Patient discharged Performed By: #### L 100.0100, L500.2500 ####[facility] [address] [place], [address] HGB Normal 12.0-15.0 [facility] Comment on above: Result Comment: Canc elled via OM: Order cancelled - Patient discharged Performed By: #### L 100.0100, L500.2500 ####[facility] [address] [place], [address] MCH Normal 27.0-32.0 [facility] Comment on above: Result Comment: Canc elled via OM: Order cancelled - Patient discharged Performed By: #### L 100.0100, L500.2500 ####[facility] [address] [place], [address] MCHC Normal 32-36 [facility] Comment on above: Result Comment: Canc elled via OM: Order cancelled - Patient discharged Performed By: #### L 100.0100, L500.2500 ####[facility] [address] [place], [address] MCV Normal 81-99 [facility] Comment on above: Result Comment: Canc elled via OM: Order cancelled - Patient discharged Performed By: #### L 100.0100, L500.2500 ####[facility] [address] [place], [address] NEUT% Normal 47-70 [facility] Comment on above: Result Comment: Canc elled via OM: Order cancelled - Patient discharged Performed By: #### L 100.0100, L500.2500 ####[facility] [address] [place], [address] PLT Normal 150-450 [facility] Comment on above: Result Comment: Canc elled via OM: Order cancelled - Patient discharged Performed By: #### L 100.0100, L500.2500 ####[facility] [address] [place], [address] RBC Normal 4.2-5.4 [facility] Comment on above: Result Comment: Canc elled via OM: Order cancelled - Patient discharged Performed By: #### L 100.0100, L500.2500 ####[facility] [address] [place], [address] RDW CV Normal 11.6-14.6 [facility] Comment on above: Result Comment: Canc elled via OM: Order cancelled - Patient discharged Performed By: #### L 100.0100, L500.2500 ####[facility] [address] [place], [address] RDW SD Normal 35.1-43.9 [facility] Comment on above: Result Comment: Canc elled via OM: Order cancelled - Patient discharged Performed By: #### L 100.0100, L500.2500 ####[facility] [address] [place], [address] WBC Normal 4.4-11.0 [facility] Comment on above: Result Comment: Canc elled via OM: Order cancelled - Patient discharged Performed By: #### L 100.0100, L500.2500 ####[facility] [address] [place], [address] Basic metabolic 2000 panelon 04-09-2024 Anion gap [Moles/Vol] 16 mmol/L High 8-15 [facility] Comment on above: Order Comment: Speci men Type: BLOOD SPECIMENOrdering Facility: [facility] Address: [address] [place] [address] Performed By: #### 2 432-2, 92647-5 ####[facility] LABCLIA [id number] [place] [address] [place] Calcium [Mass/Vol] 10.3 mg/dL High 8.5-10.2 [facility] Comment on above: Order Comment: Speci men Type: BLOOD SPECIMENOrdering Facility: [facility] Address: [address] [place] [address] Performed By: #### 2 432-2, 74455-2 ####[facility] LABCLIA [id number] [place] [id number] [place] Chloride [Moles/Vol] 103 mmol/L Normal 98-107 [facility] Comment on above: Order Comment: Speci men Type: BLOOD SPECIMENOrdering Facility: [facility] Address: [address] [place] [address] Performed By: #### 2 4321-2, 34513-8 ####[facility] LABCLIA [id number] [address] [address] [place] CO2 [Moles/Vol] 18 mmol/L Low 22-30 [facility] Comment on above: Order Comment: Speci men Type: BLOOD SPECIMENOrdering Facility: [facility] Address: [address] [place] [address] Performed By: #### 2 4321-2, 37115-2 ####[facility] LABCLIA [id number] [place] [address] [place] Creatinine [Mass/Vol] 0.82 mg/dL Normal 0.58-0.96 [facility] Comment on above: Order Comment: Speci men Type: BLOOD SPECIMENOrdering Facility: [facility] Address: [address] [place] [address] Performed By: #### 2 432-2, 27789-9 ####[facility] LABCLIA [id number] [address] [place] Creatinine and Glomerular filtration rate.predicted panel (S/P/Bld) 71 mL/min/1.73m??? Normal >=60 [facility] Comment on above: Order Comment: Speci men Type: BLOOD SPECIMENOrdering Facility: [facility] Address: [address] [place] [address] Result Comment: Kimberley mated Glomerular Filtration Rate [...] reflect actual GFR. Performed By: #### 2 1-2, 80849-3 ####[facility] LABCLIA [id number] [place] [address] [place] Glucose [Mass/Vol] 149 mg/dL High 74-99 [facility] Comment on above: Order Comment: Speci men Type: BLOOD SPECIMENOrdering Facility: [facility] Address: [address] [place] [address] Result Comment: The Canadian Diabetes Association (ADA) provides guidance for cutoff [...] Standards of Medical Care in Diabetes 2016, Canadian Diabetes Association. Diabetes Care. 2016.39(Suppl 1). Performed By: #### 2 4321-2, 98687-9 ####[facility] LABCLIA [id number] [place] [address] [place] Potassium [Moles/Vol] 4.4 mmol/L Normal 3.7-5.1 [facility] Comment on above: Order Comment: Speci men Type: BLOOD SPECIMENOrdering Facility: [facility] Address: [address] [place] [address] Performed By: #### 2 4321-2, 71224-9 ####[facility] LABIA [id number] [place] [address] [place] Sodium [Moles/Vol] 137 mmol/L Normal 136-144 [facility] Comment on above: Order Comment: Speci men Type: BLOOD SPECIMENOrdering Facility: [facility] Address: [address] [place] [address] Performed By: #### 2 4321-2, 17040-1 ####[facility] LABCLIA [id number] [place] [address] [place] Urea nitrogen [Mass/Vol] 27 mg/dL High 7-21 [facility] Comment on above: Order Comment: Speci men Type: BLOOD SPECIMENOrdering Facility: [facility] Address: [address] [place] [address] Performed By: #### 2 4321-2, 85600-3 ####[facility] MARVIN [id number] MERI AGUILAR [id number] [id number] [place] CNPTyesha 04-09-2024 CNPN Telephone (INTMWS) ERI PRITCHARD ([id number]) 1940 F Date Time Provider Department 04/09/24 KIERRA SANTIAGO INTMWS During your visit today, we recorded the following information about you: Lisseth Vaughn RN 04/09/2024 3:57 PM Signed Moisés nurse from [facility] calling as he saw pt today [...] Warfarin and Plavix. Per med list in [facility], pt has two magnesiums listed. Moisés states [...] a problem or any changes. Anastasiia Colón APRN.STUDENT EDUCATION SPECIALIST 04/09/2024 4:08 PM Signed [place] [facility]. Should take medications as ordered at discharge. Allergies As of Date: 04/09/2024 Noted Allergy Reaction ACCUPRIL (QUINAPRIL) 04/14/2015 16 - Unknown CALAN (VERAPAMIL) 04/14/2015 16 - Unknown CYMBALTA (DULOXETINE) 03/01/2024 5 - Intolerance Comments: dizziness LOTENSIN (BENAZEPRIL HCL) 04/14/2015 16 - Unknown SULFA (SULFONAMIDE ANTIBIOTICS) 04/14/2015 16 - Unknown Date Reviewed: 02/23/2024 Reviewed by: nAastasiia Colón APRN.STUDENT EDUCATION SPECIALIST - Fully Assessed Reason for Visit: Home [...] mg iron) tab Take by mouth. - argin/glut/CaHMB/colla g/mv-min (RONALDO, WITH COLLAGEN, ORAL) Take by mouth. - [...] by mouth two times a day. Biote Holcombe 3+CoQ10 --30 mg of CoQ10 - cholecalciferol [...] Vaughn RN 04/09/2024 3:47 PM >> LISSETH VAUGHN Apr 09, 2024 3:47 PM Patient is [...] Med Update (more content not included)... Normal [facility] Hepatic function 2000 panelo n 04-09-2024 Albumin [Mass/Vol] 4.3 g/dL Normal 3.9-4.9 [facility] Comment on above: Order Comment: Speci men Type: BLOOD SPECIMENOrdering Facility: [facility] Address: [address] [place] [address] Performed By: #### 2 4321-2, 71962-8 ####[facility] LABCLIA [id number] [place] [address] [place] ALP [Catalytic activity/Vol] 89 U/L Normal 34-123 [facility] Comment on above: Order Comment: Speci men Type: BLOOD SPECIMENOrdering Facility: [facility] Address: [address] [place] [address] Performed By: #### 2 4320-2, 76877-6 ####[facility] LABCLIA [id number] [place] [address] [place] ALT [Catalytic activity/Vol] 27 U/L Normal 7-38 [facility] Comment on above: Order Comment: Speci men Type: BLOOD SPECIMENOrdering Facility: [facility] Address: [address] [place] [address] Performed By: #### 2 4320-2, 85071-8 ####[facility] LABCLIA [id number] [place] [address] [place] AST [Catalytic activity/Vol] 28 U/L Normal 13-35 [facility] Comment on above: Order Comment: Speci men Type: BLOOD SPECIMENOrdering Facility: [facility] Address: [address] [place] [address] Performed By: #### 2 4321-2, 55605-4 ####[facility] LABCLIA [id number] [place] [address] [place] Bilirubin [Mass/Vol] 0.4 mg/dL Normal 0.2-1.3 [facility] Comment on above: Order Comment: Speci men Type: BLOOD SPECIMENOrdering Facility: [facility] Address: [address] [place] [address] Performed By: #### 2 4321-2, 41606-6 ####[facility] LABCLIA [id number] [place] [address] [place] Bilirubin.conjugated [Mass/Vol] mg/dL Normal <0.2 [facility] Comment on above: Order Comment: Miguel cunningham Type: BLOOD SPECIMENOrdering Facility: [facility] Address: [address] [place] [address] Performed By: #### 2 4321-2, 30476-0 ####[facility] LABIA [id number] [place] [address] [place] Protein [Mass/Vol] 8.0 g/dL Normal 6.3-8.0 [facility] Comment on above: Order Comment: Miguel cunningham Type: BLOOD SPECIMENOrdering Facility: [facility] Address: [address] [place] [address] Performed By: #### 2 4321-2, 27120-5 ####[facility] LABIA [id number] [place] [address] [place] PT panel Coag (PPP)on 2023 INR Coag (PPP) [Relative time] 1.7 {INR} High 0.9-1.3 [facility] Comment on above: Order Comment: Miguel cunningham Type: BLOOD SPECIMEN Ordering Facility: [facility] Address: [address] [place] [address] Result Comment: Geetha min K Antagonist (VKA) Therapeutic Range: INR 2 to 3 (Target INR of 2.5) Note: For patients treated with VKA drugs, such as warfarin, the [employer] College of Chest [employer]icians 2012 Guideline recommends [...] Chest 2012, 141:7S-47S Jovanna ZAIDI et al. [facility] 2017, 70: 252-289 Performed By: #### 5 8410-2 #### [facility] CLIA [id number] [address] [place] [address] [place] PT Coag (PPP) [Time] 17.0 s High <13.1 [facility] Comment on above: Order Comment: Speci men Type: BLOOD SPECIMEN Ordering Facility: [facility] Address: [address] [place] [address] Performed By: #### 5 8410-2 #### [facility] CLIA [id number] [address] [place] [address] [place] Prothrombin Time w/INRon INR Normal [facility] Comment on above: Result Comment: Canc elled via OM: Order cancelled - Patient discharged Performed By: #### L 300.3900 ####[facility] [address] [place], [place], [address] PROTIME Normal 11.7-14.9 [facility] Comment on above: Result Comment: Canc elled via OM: Order cancelled - Patient discharged Performed By: #### L 300.3900 ####[facility] [address] [place], [address] Bedside Glucoseon 04-08-2024 FINGERSTICK GLU 125 mg/dL High 74-106 [facility] Comment on above: Result Comment: LEVI HYDE OF PATIENT CARE PER NURSING PROTOCOL Performed By: #### L 501.080 ####[facility] [address] [place], [address] Glucose measurement at [facility] deOrdered By: Jason Smith on 04-08-2024 Bedside Glucose (Misc Panel) 125 mg/dL High 74-106 [facility] Comment on above: MANAGEMENT OF PATIEN T CARE PER NURSING PROTOCOL International normalized rat io (INR) calculationOrdered By: Jason Smith on 04-08-2024 INR Coag (Bld) [Relative time] 1.2 {INR} [facility] Prothrombin Time w/INRon INR Coag (PPP) [Relative time] 1.2 {INR} Normal [facility] Comment on above: Performed By: #### L 300.3900 ####[facility] [address] [place], [place], [id number] PT Coag (PPP) [Time] 15.6 s High 11.7-14.9 [facility] Comment on above: Performed By: #### L 300.3900 ####[facility] [address] [place], [place], [address] Prothrombin timeOrdered By: Jason Smith on 04-08-2024 PT Coag (PPP) [Time] 15.6 s High 11.7-14.9 [facility] Bedside Glucoseon 04-07-2024 FINGERSTICK GLU 146 mg/dL High [facility]106 [facility] Comment on above: Result Comment: LEVI GEMENT OF PATIENT CARE PER NURSING PROTOCOL Performed By: #### L 501.080 ####[facility] [address] [place], [place], [address] Bedside Glucoseon 04-06-2024 FINGERSTICK GLU 116 mg/dL High [facility]106 [facility] Comment on above: Result Comment: LEVI GEMENT OF PATIENT CARE PER NURSING PROTOCOL Performed By: #### L 501.080 ####[facility] [address] [place], [place], [id number] Absolute neutrophil countOrd ered By: Jason Smith on 04-05-2024 Neutrophils (Bld) [#/Vol] 4.1 10*3/uL 2.0-7.7 [facility] Basophil percentageOrdered B y: Jason Smith on 04-05-2024 Basophils/100 WBC (Bld) 0.8 % 0-[address] [facility] Bedside Glucoseon 04-05-2024 FINGERSTICK GLU 110 mg/dL High 74-106 [facility] Comment on above: Result Comment: LEVI HYDE OF PATIENT CARE PER NURSING PROTOCOL Performed By: #### L 501.080 ####[facility] [address] [place], [address] CBC W/Diff, Automatedon Absolute Lymph 1.39 X10 3/uL Normal 0.83-4.51 [facility] Comment on above: Performed By: #### L 100.0100 ####[facility] [address] [place], [address] Absolute Neut 4.1 X10 3/uL Normal 2.0-7.7 [facility] Comment on above: Performed By: #### L 100.0100 ####[facility] [address] [place], [address] Basophils/100 WBC (Bld) 0.8 % Normal 0-[address] [facility] Comment on above: Performed By: #### L 100.0100 ####[facility] [address] [place], [address] Eosinophils/100 WBC (Bld) 2.7 % Normal 0-5 [facility] Comment on above: Performed By: #### L 100.0100 ####[facility] [address] [place], [address] Erythrocyte distribution width (RBC) [Ratio] 16.3 % High 11.6-14.6 [facility] Comment on above: Performed By: #### L 100.0100 ####[facility] [address] [place], [address] Hematocrit (Bld) [Volume fraction] 39.1 % Normal 37-47 [facility] Comment on above: Performed By: #### L 100.0100 ####[facility] [address] [place], [address] Hemoglobin (Bld) [Mass/Vol] 12.3 g/dL Normal 12.0-15.0 [facility] Comment on above: Performed By: #### L 100.0100 ####[facility] [address] [place], [address] IG% 0.300 Normal 0.0-0.9 [facility] Comment on above: Result Comment: IG% - Immature Granulocytes (promyelocytes, myelocytes andmetamyelocytes) > 1% indicates that a LEFT SHIFT is Present. Performed By: #### L 100.0100 ####[facility] [address] [place], [address] Lymphocytes/100 WBC (Bld) 21.1 % Normal 19-41 [facility] Comment on above: Performed By: #### L 100.0100 ####[facility] [address] [place], [address] MCH (RBC) [Entitic mass] 28.8 pg Normal 27.0-32.0 [facility] Comment on above: Performed By: #### L 100.0100 ####[facility] [address] [place], [address] MCHC (RBC) [Mass/Vol] 31.5 g/dL Low 32-36 [facility] Comment on above: Performed By: #### L 100.0100 ####[facility] [address] [place], [address] MCV (RBC) [Entitic vol] 91.6 fL Normal 81-[address] [facility] Comment on above: Performed By: #### L 100.0100 ####[facility] [address] [place], [address] Monocytes/100 WBC (Bld) 12.6 % High 0-[address] [facility] Comment on above: Performed By: #### L 100.0100 ####[facility] [address] [place], [address] Neutrophils/100 WBC (Bld) 62.5 % Normal 47-70 [facility] Comment on above: Performed By: #### L 100.0100 ####[facility] [address] [place], [address] Nucleated RBC (Bld) [#/Vol] 0 10*3/uL Normal 0-5 [facility] Comment on above: Performed By: #### L 100.0100 ####[facility] [address] [place], [address] Platelet mean volume (Bld) [Entitic vol] 9.2 fL Normal 6.2-12.0 [facility] Comment on above: Performed By: #### L 100.0100 ####[facility] [address] [place], [address] Platelets (Bld) [#/Vol] 307 10*3/uL Normal 150-450 [facility] Comment on above: Performed By: #### L 100.0100 ####[facility] [address] [place], [address] RBC (Bld) [#/Vol] 4.27 10*6/uL Normal 4.2-5.4 [facility] Comment on above: Performed By: #### L 100.0100 ####[facility] [address] [place], [address] RDW SD 54.7 fl High 35.1-43.9 [facility] Comment on above: Performed By: #### L 100.0100 ####[facility] [address] [place], [address] WBC (Bld) [#/Vol] 6.6 10*3/uL Normal 4.4-11.[address] [facility] Comment on above: Performed By: #### L 100.0100 ####[facility] [address] [place], [address] CNPNon 04-05-2024 CNPN Telephone (INTMWS) ERI PRITCHARD ([id number]) 1940 F Date Time Provider Department 04/05/24 KIERRA SANTIAGO INTMWS During your visit today, we recorded the following information about you: Noemi Cullen RN 04/05/2024 11:55 AM Signed Le with [facility] and states patient will be discharging from [facility] this Tuesday. Requesting verbal order for patient for Home Health Group [facility], PT and OT. Asking if provider will sign and follow for these orders. Call Le with verbal order at [phone]. Thank you. Anastasiia Colón APRN.AMBROSIO 04/05/2024 4:21 PM Signed [facility] Bekah Vivas LPN 04/05/2024 4:51 PM [...] Date Reviewed: 02/23/2024 Reviewed by: Anastasiia Colón APRN.STUDENT EDUCATION SPECIALIST - Fully Assessed Reason for Visit: Home [...] mg iron) tab Take by mouth. - argin/glut/CaHMB/colla g/mv-min (RONALDO, WITH COLLAGEN, ORAL) Take by mouth. - [...] by mouth two times a day. Biote [place] 3+CoQ10 --30 mg of CoQ10 - cholecalciferol [...] Status:Closed by BEKAH VIVAS on 04/05/24 Normal [facility] Eosinophil percentageOrdered By: Jason Smith on 04-05-2024 Eosinophils/100 WBC (Bld) 2.7 % 0-5 [facility] Erythrocyte distribution wid th ratioOrdered By: Jason Smith on 04-05-2024 Erythrocyte distribution width (RBC) [Ratio] 16.3 % High 11.6-14.6 [facility] Erythrocyte distribution wid th standard deviationOrdered By: Jason Smith on 04-05-2024 Erythrocyte distribution width (RBC) [Entitic vol] 54.7 fL High 35.1-43.9 [facility] Hematocrit Auto (Bld) [Volum e fraction]Ordered By: Jason Smith on 04-05-2024 Hematocrit (Bld) [Volume fraction] 39.1 % 37-47 [facility] Hemoglobin measurementOrdere d By: Jason Smith on 04-05-2024 Hemoglobin (Bld) [Mass/Vol] 12.3 g/dL 12.0-15.0 [facility] Immature granulocytes/100 WB C Auto (Bld)Ordered By: Jason Smith on 04-05-2024 Immature granulocytes/100 WBC (Bld) 0.300 % 0.0-0.9 [facility] Comment on above: IG% - Immature Granu locytes (promyelocytes, myelocytes and metamyelocytes) > 1% indicates that a LEFT SHIFT is Present. Lymphocytes Auto (Unsp spec) [#/Vol]Ordered By: Jason Smith on 04-05-2024 Lymphocytes (Bld) [#/Vol] 1.39 10*3/uL 0.83-4.51 [facility] Lymphocytes/100 WBC Auto (Un sp spec)Ordered By: Jason Smith on 04-05-2024 Lymphocytes/100 WBC (Bld) 21.1 % 19-41 [facility] MCV (mean corpuscular volume ) determinationOrdered By: Jason Smith on 04-05-2024 MCV (RBC) [Entitic vol] 91.6 fL 81-[address] [facility] Mean corpuscular hemoglobin (MCH) determinationOrdered By: Jason Smith on 04-05-2024 MCH (RBC) [Entitic mass] 28.8 pg 27.0-32.0 [facility] Mean corpuscular hemoglobin concentration (MCHC) determinationOrdered By: Jason Smith on 04-05-2024 MCHC (RBC) [Mass/Vol] 31.5 g/dL Low 32-36 [facility] Mean platelet volume determi nationOrdered By: Jason Smith on 04-05-2024 Platelet mean volume (Bld) [Entitic vol] 9.2 fL 6.2-12.0 [facility] Monocyte percentageOrdered B y: Jason Smith on 04-05-2024 Monocytes/100 WBC (Bld) 12.6 % High 0-[address] [facility] Neutrophil percentageOrdered By: Jason Smith on 04-05-2024 Neutrophils/100 WBC (Bld) 62.5 % 47-70 [facility] Nucleated red blood cell per centageOrdered By: Jason Smith on 04-05-2024 Nucleated RBC/100 WBC (Bld) [Ratio] 0 % 0-5 [facility] Platelet countOrdered By: Parth Smith on 04-05-2024 Platelets (Bld) [#/Vol] 307 10*3/uL 150-450 [facility] Prothrombin Time w/INRon INR Coag (PPP) [Relative time] 1.1 {INR} Normal [facility] Comment on above: Performed By: #### L 300.3900 ####[facility] [address] [place], [place], [id number] PT Coag (PPP) [Time] 14.1 s Normal 11.7-14.9 [facility] Comment on above: Performed By: #### L 300.3900 ####[facility] [address] [place], [place], [id number] RBC Auto (Bld) [#/Vol]Ordere d By: Jason Smith on 04-05-2024 RBC (Bld) [#/Vol] 4.27 10*6/uL 4.2-5.4 [facility] White blood cell (WBC) count Ordered By: Jason Smith on 04-05-2024 WBC (Bld) [#/Vol] 6.6 10*3/uL 4.4-11.[address] [facility] Bedside Glucoseon 04-04-2024 FINGERSTICK GLU 131 mg/dL High 74-106 [facility] Comment on above: Result Comment: LEVI GEMENT OF PATIENT CARE PER NURSING PROTOCOL Performed By: #### L 501.080 ####[facility] [address] [place], [place], [id number] FINGERSTICK GLU 109 mg/dL High 74-106 [facility] Comment on above: Result Comment: LEVI GEMENT OF PATIENT CARE PER NURSING PROTOCOL Performed By: #### L 501.080 ####[facility] [address] [place], [place], [id number] EGD Reporton 04-04-2024 EGD Report Normal [facility] Glucose measurement at [facility] deOrdered By: Robb Giron on 04-04-2024 Bedside Glucose (Misc Panel) 131 mg/dL High 74-106 [facility] Comment on above: MANAGEMENT OF PATIEN T CARE PER NURSING PROTOCOL H Pylori (initial)on 024 H Pylori (initial) Normal [facility] Comment on above: Performed By: #### P H.PYLORI ####[facility] [address] [place], [address] MR/POSTOP.ANEon 04-04-2024 MR/POSTOP.ANE Normal [facility] MR/[id number] 04-04-2024 MR/POSTOPAN2 Normal [facility] Surgery Specimen Level Aj 04-04-2024 Surgery Specimen Level IV [facility] Comment on above: Performed By: #### P SUIV ####[facility] [address] [place], [address] Basic Metabolic Profile (BMP )on 04-03-2024 BUN/CRE 43.0 RATIO High 10-20 [facility] Comment on above: Performed By: #### L 100.0100, L500.2500 ####[facility] [address] [place], [address] CA,Total 9.4 mg/dL Normal 8.5-10.1 [facility] Comment on above: Performed By: #### L 100.0100, L500.2500 ####[facility] [address] [place], [address] Chloride [Moles/Vol] 108 mmol/L High 98-107 [facility] Comment on above: Performed By: #### L 100.0100, L500.2500 ####[facility] [address] [place], [address] CO2 [Moles/Vol] 23.0 mmol/L Normal 21.0-32.0 [facility] Comment on above: Performed By: #### L 100.0100, L500.2500 ####[facility] [address] [place], [address] Creatinine [Mass/Vol] 0.77 mg/dL Normal 0.55-1.02 [facility] Comment on above: Result Comment: The validity of the calculated GFR GFRAA in patients over70 years has not been determined. Clinical correlation isessential. Performed By: #### L 100.0100, L500.2500 ####[facility] [address] [place], [address] ECRCL 46.93 ml/min Normal [facility] Comment on above: Performed By: #### L 100.0100, L500.2500 ####[facility] [address] [place], [address] EST GFR - AA 92 mL/min Normal >60 [facility] Comment on above: Result Comment: Afri can [place] GFR Calc Performed By: #### L 100.0100, L500.2500 ####[facility] [address] [place], [address] GAP 7 Normal 5-15 [facility] Comment on above: Performed By: #### L 100.0100, L500.2500 ####[facility] [address] [place], [address] GFR/1.73 sq M.predicted among non-blacks MDRD (S/P/Bld) [Vol rate/Area] 76 mL/min/{1.73_m2} Normal >60 [facility] Comment on above: Result Comment: Non- GFR Calc Performed By: #### L 100.0100, L500.2500 ####[facility] [address] [place], [address] Glucose [Mass/Vol] 89 mg/dL Normal 74-[address] [facility] Comment on above: Performed By: #### L 100.0100, L500.2500 ####[facility] [address] [place], [address] Potassium [Moles/Vol] 3.6 mmol/L Normal 3.5-5.1 [facility] Comment on above: Performed By: #### L 100.0100, L500.2500 ####[facility] [address] [place], [address] Sodium [Moles/Vol] 138 mmol/L Normal 136-[address] [facility] Comment on above: Performed By: #### L 100.0100, L500.2500 ####[facility] [address] [place], [address] Urea nitrogen [Mass/Vol] 33 mg/dL High 7-18 [facility] Comment on above: Performed By: #### L 100.0100, L500.2500 ####[facility] [address] [place], [address] Bedside Glucoseon 04-03-2024 FINGERSTICK GLU 98 mg/dL Normal 74-106 [facility] Comment on above: Result Comment: LEVI HYDE OF PATIENT CARE PER NURSING PROTOCOL Performed By: #### L 501.080 ####[facility] [address] [place], [address] Blood urea nitrogen (BUN)/cr eatinine ratioOrdered By: Jason Smith on 04-03-2024 Urea nitrogen/Creatinine [Mass ratio] 43.0 mg/mg High 10-20 [facility] CBC W/Diff, Automatedon 12-0 Absolute Lymph 1.62 X10 3/uL Normal 0.83-4.51 [facility] Comment on above: Performed By: #### L 100.0100, L500.2500 ####[facility] [address] [place], [address] Absolute Neut 2.6 X10 3/uL Normal 2.0-7.7 [facility] Comment on above: Performed By: #### L 100.0100, L500.2500 ####[facility] [address] [place], [address] Basophils/100 WBC (Bld) 1.1 % High 0-[address] [facility] Comment on above: Performed By: #### L 100.0100, L500.2500 ####[facility] [address] [place], [address] Eosinophils/100 WBC (Bld) 3.9 % Normal 0-5 [facility] Comment on above: Performed By: #### L 100.0100, L500.2500 ####[facility] [address] [place], [address] Erythrocyte distribution width (RBC) [Ratio] 16.4 % High 11.6-14.6 [facility] Comment on above: Performed By: #### L 100.0100, L500.2500 ####[facility] [address] [place], [address] Hematocrit (Bld) [Volume fraction] 37.7 % Normal 37-47 [facility] Comment on above: Performed By: #### L 100.0100, L500.2500 ####[facility] [address] [place], [address] Hemoglobin (Bld) [Mass/Vol] 12.0 g/dL Normal 12.0-15.0 [facility] Comment on above: Performed By: #### L 100.0100, L500.2500 ####[facility] [address] [place], [address] IG% 0.400 Normal 0.0-0.9 [facility] Comment on above: Result Comment: IG% - Immature Granulocytes (promyelocytes, myelocytes andmetamyelocytes) > 1% indicates that a LEFT SHIFT is Present. Performed By: #### L 100.0100, L500.2500 ####[facility] [address] [place], [address] Lymphocytes/100 WBC (Bld) 30.2 % Normal 19-41 [facility] Comment on above: Performed By: #### L 100.0100, L500.2500 ####[facility] [address] [place], [address] MCH (RBC) [Entitic mass] 28.9 pg Normal 27.0-32.0 [facility] Comment on above: Performed By: #### L 100.0100, L500.2500 ####[facility] [address] [place], [address] MCHC (RBC) [Mass/Vol] 31.8 g/dL Low 32-36 [facility] Comment on above: Performed By: #### L 100.0100, L500.2500 ####[facility] [address] [place], [address] MCV (RBC) [Entitic vol] 90.8 fL Normal 81-99 [facility] Comment on above: Performed By: #### L 100.0100, L500.2500 ####[facility] [address] [place], [address] Monocytes/100 WBC (Bld) 15.9 % High 0-[address] [facility] Comment on above: Performed By: #### L 100.0100, L500.2500 ####[facility] [address] [place], [address] Neutrophils/100 WBC (Bld) 48.5 % Normal 47-70 [facility] Comment on above: Performed By: #### L 100.0100, L500.2500 ####[facility] [address] [place], [address] Nucleated RBC (Bld) [#/Vol] 0 10*3/uL Normal 0-5 [facility] Comment on above: Performed By: #### L 100.0100, L500.2500 ####[facility] [address] [place], [address] Platelet mean volume (Bld) [Entitic vol] 8.9 fL Normal 6.2-12.0 [facility] Comment on above: Performed By: #### L 100.0100, L500.2500 ####[facility] [address] [place], [address] Platelets (Bld) [#/Vol] 361 10*3/uL Normal 150-450 [facility] Comment on above: Performed By: #### L 100.0100, L500.2500 ####[facility] [address] [place], [address] RBC (Bld) [#/Vol] 4.15 10*6/uL Low 4.2-5.4 [facility] Comment on above: Performed By: #### L 100.0100, L500.2500 ####[facility] [address] [place], [address] RDW SD 54.6 fl High 35.1-43.9 [facility] Comment on above: Performed By: #### L 100.0100, L500.2500 ####[facility] [address] [place], [address] WBC (Bld) [#/Vol] 5.4 10*3/uL Normal 4.4-11.[address] [facility] Comment on above: Performed By: #### L 100.0100, L500.2500 ####[facility] [address] [place], [address] Carbon dioxide measurementOr dered By: Jason Smith on 04-03-2024 CO2 [Moles/Vol] 23.0 mmol/L 21.0-32.0 [facility] Chloride measurementOrdered By: Jason Smith on 04-03-2024 Chloride [Moles/Vol] 108 mmol/L High 98-107 [facility] Estimated glomerular filtrat ion rate (GFR) AmericanOrdered By: Jason Smith on 04-03-2024 Estimated GFR (MDRD) Amer 92 mL/min >60 [facility] Comment on above: GFR Calc Estimation of creatinine noelle aranceOrdered By: Jason Smith on 04-03-2024 Estimated Creatinine Clearance Calc 46.93 ml/min [facility] Glomerular filtration rate ( GFR) estimationOrdered By: Jason Smith on 04-03-2024 Estimated GFR (MDRD) Non-Af Amer 76 mL/min >60 [facility] Comment on above: Non- GFR Calc Glucose measurementOrdered B y: Jason Smith on 04-03-2024 Glucose [Mass/Vol] 89 mg/dL 74-[address] [facility] Potassium measurementOrdered By: Jason Smith on 04-03-2024 Potassium [Moles/Vol] 3.6 mmol/L 3.5-5.1 [facility] Serum anion gap measurementO rdered By: Jason Smith on 04-03-2024 Anion gap [Moles/Vol] 7 mmol/L 5-15 [facility] Serum or plasma calcium walker urement (mass/volume)Ordered By: Jason Smith on 04-03-2024 Calcium [Mass/Vol] 9.4 mg/dL 8.5-10.[address] [facility] Serum or plasma creatinine m easurement (mass/volume)Ordered By: Jason Smith on 04-03-2024 Creatinine [Mass/Vol] 0.77 mg/dL 0.55-1.02 [facility] Comment on above: The validity of the calculated GFR & GFRAA in patients over 70 years has not been determined. Clinical correlation is essential. Serum or plasma urea nitroge n measurement (mass/volume)Ordered By: Jason Smith on 04-03-2024 Urea nitrogen [Mass/Vol] 33 mg/dL High 7-18 [facility] Sodium levelOrdered By: Jason Smith on 04-03-2024 Sodium [Moles/Vol] 138 mmol/L 136-[address] [facility] Bedside Glucoseon 04-02-2024 FINGERSTICK GLU 114 mg/dL High 74-106 [facility] Comment on above: Result Comment: LEVI HYDE OF PATIENT CARE PER NURSING PROTOCOL Performed By: #### L 501.080 ####[facility] [address] [place], [address] CBC W/Diff, Automatedon 12-0 2-4 Absolute Lymph 1.45 X10 3/uL Normal 0.83-4.51 [facility] Comment on above: Performed By: #### L 100.0100 ####[facility] [address] [place], [address] Absolute Neut 2.8 X10 3/uL Normal 2.0-7.7 [facility] Comment on above: Performed By: #### L 100.0100 ####[facility] [address] [place], [address] Basophils/100 WBC (Bld) 0.9 % Normal 0-[address] [facility] Comment on above: Performed By: #### L 100.0100 ####[facility] [address] [place], [address] Eosinophils/100 WBC (Bld) 3.5 % Normal 0-5 [facility] Comment on above: Performed By: #### L 100.0100 ####[facility] [address] [place], [address] Erythrocyte distribution width (RBC) [Ratio] 16.4 % High 11.6-14.6 [facility] Comment on above: Performed By: #### L 100.0100 ####[facility] [address] [place], [address] Hematocrit (Bld) [Volume fraction] 37.0 % Normal 37-47 [facility] Comment on above: Performed By: #### L 100.0100 ####[facility] [address] [place], [address] Hemoglobin (Bld) [Mass/Vol] 11.9 g/dL Low 12.0-15.0 [facility] Comment on above: Performed By: #### L 100.0100 ####[facility] [address] [place], [address] IG% 0.400 Normal 0.0-0.9 [facility] Comment on above: Result Comment: IG% - Immature Granulocytes (promyelocytes, myelocytes andmetamyelocytes) > 1% indicates that a LEFT SHIFT is Present. Performed By: #### L 100.0100 ####[facility] [address] [place], [address] Lymphocytes/100 WBC (Bld) 27.1 % Normal 19-41 [facility] Comment on above: Performed By: #### L 100.0100 ####[facility] [address] [place], [address] MCH (RBC) [Entitic mass] 29.4 pg Normal 27.0-32.0 [facility] Comment on above: Performed By: #### L 100.0100 ####[facility] [address] [place], [address] MCHC (RBC) [Mass/Vol] 32.2 g/dL Normal 32-36 [facility] Comment on above: Performed By: #### L 100.0100 ####[facility] [address] [place], [address] MCV (RBC) [Entitic vol] 91.4 fL Normal 81-99 [facility] Comment on above: Performed By: #### L 100.0100 ####[facility] [address] [place], [address] Monocytes/100 WBC (Bld) 15.9 % High 0-[address] [facility] Comment on above: Performed By: #### L 100.0100 ####[facility] [address] [place], [address] Neutrophils/100 WBC (Bld) 52.2 % Normal 47-70 [facility] Comment on above: Performed By: #### L 100.0100 ####[facility] [address] [place], [address] Nucleated RBC (Bld) [#/Vol] 0.4 10*3/uL Normal 0-5 [facility] Comment on above: Performed By: #### L 100.0100 ####[facility] [address] [place], [address] Platelet mean volume (Bld) [Entitic vol] 9.1 fL Normal 6.2-12.0 [facility] Comment on above: Performed By: #### L 100.0100 ####[facility] [address] [place], [address] Platelets (Bld) [#/Vol] 386 10*3/uL Normal 150-450 [facility] Comment on above: Performed By: #### L 100.0100 ####[facility] [address] [place], [address] RBC (Bld) [#/Vol] 4.05 10*6/uL Low 4.2-5.4 [facility] Comment on above: Performed By: #### L 100.0100 ####[facility] [address] [place], [address] RDW SD 55.0 fl High 35.1-43.9 [facility] Comment on above: Performed By: #### L 100.0100 ####[facility] [address] [place], [address] WBC (Bld) [#/Vol] 5.4 10*3/uL Normal 4.4-11.[address] [facility] Comment on above: Performed By: #### L 100.0100 ####[facility] [address] [place], [address] COVID 19 AG RAPID (RN ETHEL Vaughn)on 04-02-2024 SARS-CoV-2 (COVID-19) RNA MARCOS+probe Ql (Unsp spec) Normal [facility] Comment on above: Performed By: #### M 100.505 ####[facility] [address], [address] MR/CON.PCM.GIon 04-02-2024 MR/CON.PCM.GI Normal [facility] Prothrombin Time w/INRon INR Coag (PPP) [Relative time] 1.1 {INR} Normal [facility] Comment on above: Performed By: #### L 300.3900 ####[facility] [address], [address] PT Coag (PPP) [Time] 14.2 s Normal 11.7-14.9 [facility] Comment on above: Performed By: #### L 300.3900 ####[facility] [address] [place], [address] SARS-CoV-2 (COVID-19) Ag IA. rapid Ql (Resp)Ordered By: Jason Smith on 04-02-2024 SARS-CoV-2 Antigen (Rapid) [facility] Bedside Glucoseon 04-01-2024 FINGERSTICK GLU 106 mg/dL Normal 74-106 [facility] Comment on above: Result Comment: LEVI GEMENT OF PATIENT CARE PER NURSING PROTOCOL Performed By: #### L 501.080 ####[facility] [address] [place], [address] Bedside Glucoseon 03-31-2024 FINGERSTICK GLU 109 mg/dL High 74-106 [facility] Comment on above: Result Comment: LEVI GEMENT OF PATIENT CARE PER NURSING PROTOCOL Performed By: #### L 501.080 ####[facility] [address] [place], [address] Bedside Glucoseon 03-30-2024 FINGERSTICK GLU 142 mg/dL High 74-106 [facility] Comment on above: Result Comment: LEVI GEMENT OF PATIENT CARE PER NURSING PROTOCOL Performed By: #### L 501.080 ####[facility] [address] [place], [address] Bedside Glucoseon 03-29-2024 FINGERSTICK GLU 107 mg/dL High 74-106 [facility] Comment on above: Result Comment: LEVI GEMENT OF PATIENT CARE PER NURSING PROTOCOL Performed By: #### L 501.080 ####[facility] [address] [place], [address] Prothrombin Time w/INRon INR Coag (PPP) [Relative time] 2.4 {INR} Normal [facility] Comment on above: Performed By: #### L 300.3900 ####[facility] [address] [place], [address] PT Coag (PPP) [Time] 26.2 s High 11.7-14.9 [facility] Comment on above: Performed By: #### L 300.3900 ####[facility] [address] [place], [address] Bedside Glucoseon 03-28-2024 FINGERSTICK GLU 106 mg/dL Normal 74-106 [facility] Comment on above: Result Comment: LEVI GEMENT OF PATIENT CARE PER NURSING PROTOCOL Performed By: #### L 501.080 ####[facility] [address] [place], [address] Lower GI hemoglobin IA Ql (S tl)Ordered By: Jason Smith on 03-28-2024 Stool Occult Blood (LATANYA) Positive Abnormal [facility] Stool Occult Blood iFOBon STOB Positive Normal [facility] Comment on above: Performed By: #### M 100.7900 ####[facility] [address] [place], [address] BRCon 03-27-2024 RC Normal [facility] Comment on above: Result Comment: [id number] AP RC TRANSFUSED 03/27/24 [id number] AP RC TRANSFUSED 03/27/24 1543 Performed By: #### B RC, BTS ####[facility] [address] [place], [address] Basic Metabolic Profile (BMP )on 03-27-2024 BUN/CRE 46.6 RATIO High 10-20 [facility] Comment on above: Performed By: #### L 100.0100, L500.2500 ####[facility] [address] [place], [address] CA,Total 8.9 mg/dL Normal 8.5-10.1 [facility] Comment on above: Performed By: #### L 100.0100, L500.2500 ####[facility] [address] [place], [address] Chloride [Moles/Vol] 109 mmol/L High 98-107 [facility] Comment on above: Performed By: #### L 100.0100, L500.2500 ####[facility] [address] [place], [address] CO2 [Moles/Vol] 20.0 mmol/L Low 21.0-32.0 [facility] Comment on above: Performed By: #### L 100.0100, L500.2500 ####[facility] [address] [place], [address] Creatinine [Mass/Vol] 0.88 mg/dL Normal 0.55-1.02 [facility] Comment on above: Result Comment: The validity of the calculated GFR GFRAA in patients over70 years has not been determined. Clinical correlation isessential. Performed By: #### L 100.0100, L500.2500 ####[facility] [address] [place], [address] ECRCL 43.30 ml/min Normal [facility] Comment on above: Performed By: #### L 100.0100, L500.2500 ####[facility] [address] [place], [address] EST GFR - AA 79 mL/min Normal >60 [facility] Comment on above: Result Comment: Afri can [place] GFR Calc Performed By: #### L 100.0100, L500.2500 ####[facility] [address] [place], [address] GAP 7 Normal 5-15 [facility] Comment on above: Performed By: #### L 100.0100, L500.2500 ####[facility] [address] [place], [address] GFR/1.73 sq M.predicted among non-blacks MDRD (S/P/Bld) [Vol rate/Area] 65 mL/min/{1.73_m2} Normal >60 [facility] Comment on above: Result Comment: Non- GFR Calc Performed By: #### L 100.0100, L500.2500 ####[facility] [address] [place], [address] Glucose [Mass/Vol] 135 mg/dL High 74-[address] [facility] Comment on above: Result Comment: Fast ing Glucose result greater than or equal to 126 mg/dLsuggests DIABETES MELLITUS per A.D.A. criteria. Performed By: #### L 100.0100, L500.2500 ####[facility] [address] [place], [address] Potassium [Moles/Vol] 4.2 mmol/L Normal 3.5-5.1 [facility] Comment on above: Performed By: #### L 100.0100, L500.2500 ####[facility] [address] [place], [address] Sodium [Moles/Vol] 136 mmol/L Normal 136-[address] [facility] Comment on above: Performed By: #### L 100.0100, L500.2500 ####[facility] [address] [place], [address] Urea nitrogen [Mass/Vol] 41 mg/dL High 7-18 [facility] Comment on above: Performed By: #### L 100.0100, L500.2500 ####[facility] [address] [place], [address] Bedside Glucoseon 03-27-2024 FINGERSTICK GLU 122 mg/dL High 74-106 [facility] Comment on above: Result Comment: LEVI HYDE OF PATIENT CARE PER NURSING PROTOCOL Performed By: #### L 501.080 ####[facility] [address] [place], [address] CBC W/Diff, Automatedon 03-03 Absolute Lymph 1.35 X10 3/uL Normal 0.83-4.51 [facility] Comment on above: Performed By: #### L 100.0100, L500.2500 ####[facility] [address] [place], [address] Absolute Neut 4.3 X10 3/uL Normal 2.0-7.7 [facility] Comment on above: Performed By: #### L 100.0100, L500.2500 ####[facility] [address] [place], [address] Basophils/100 WBC (Bld) 0.6 % Normal 0-[address] [facility] Comment on above: Performed By: #### L 100.0100, L500.2500 ####[facility] [address] [place], [address] Eosinophils/100 WBC (Bld) 1.8 % Normal 0-5 [facility] Comment on above: Performed By: #### L 100.0100, L500.2500 ####[facility] [address] [place], [address] Erythrocyte distribution width (RBC) [Ratio] 18.0 % High 11.6-14.6 [facility] Comment on above: Performed By: #### L 100.0100, L500.2500 ####[facility] [address] [place], [address] Hematocrit (Bld) [Volume fraction] 25.2 % Low 37-47 [facility] Comment on above: Performed By: #### L 100.0100, L500.2500 ####[facility] [address] [place], [address] Hemoglobin (Bld) [Mass/Vol] 7.8 g/dL Low 12.0-15.0 [facility] Comment on above: Performed By: #### L 100.0100, L500.2500 ####[facility] [address] [place], [address] IG% 0.500 Normal 0.0-0.9 [facility] Comment on above: Result Comment: IG% - Immature Granulocytes (promyelocytes, myelocytes andmetamyelocytes) > 1% indicates that a LEFT SHIFT is Present. Performed By: #### L 100.0100, L500.2500 ####[facility] [address] [place], [address] Lymphocytes/100 WBC (Bld) 20.7 % Normal 19-41 [facility] Comment on above: Performed By: #### L 100.0100, L500.2500 ####[facility] [address] [place], [address] MCH (RBC) [Entitic mass] 29.7 pg Normal 27.0-32.0 [facility] Comment on above: Performed By: #### L 100.0100, L500.2500 ####[facility] [address] [place], [address] MCHC (RBC) [Mass/Vol] 31.0 g/dL Low 32-36 [facility] Comment on above: Performed By: #### L 100.0100, L500.2500 ####[facility] [address] [place], [address] MCV (RBC) [Entitic vol] 95.8 fL Normal 81-99 [facility] Comment on above: Performed By: #### L 100.0100, L500.2500 ####[facility] [address] [place], [address] Monocytes/100 WBC (Bld) 10.1 % High 0-10 [facility] Comment on above: Performed By: #### L 100.0100, L500.2500 ####[facility] [address] [place], [address] Neutrophils/100 WBC (Bld) 66.3 % Normal 47-70 [facility] Comment on above: Performed By: #### L 100.0100, L500.2500 ####[facility] [address] [place], [address] Nucleated RBC (Bld) [#/Vol] 0.8 10*3/uL Normal 0-5 [facility] Comment on above: Performed By: #### L 100.0100, L500.2500 ####[facility] [address] [place], [address] Platelet mean volume (Bld) [Entitic vol] 9.3 fL Normal 6.2-12.0 [facility] Comment on above: Performed By: #### L 100.0100, L500.2500 ####[facility] [address] [place], [address] Platelets (Bld) [#/Vol] 439 10*3/uL Normal 150-450 [facility] Comment on above: Performed By: #### L 100.0100, L500.2500 ####[facility] [address] [place], [address] RBC (Bld) [#/Vol] 2.63 10*6/uL Low 4.2-5.4 [facility] Comment on above: Performed By: #### L 100.0100, L500.2500 ####[facility] [address] [place], [address] RDW SD 61.6 fl High 35.1-43.9 [facility] Comment on above: Performed By: #### L 100.0100, L500.2500 ####[facility] [address] [place], [address] WBC (Bld) [#/Vol] 6.5 10*3/uL Normal 4.4-11.[address] [facility] Comment on above: Performed By: #### L 100.0100, L500.2500 ####[facility] [address] [place], [address] Type AND Screenon 03-27-2024 ABO and Rh group Nom (Bld) Blood group A Rh(D) positive Normal [facility] Comment on above: Order Comment: CMV N EG? NNumber of units to transfuse: 2Comments: right transmetatarsal amputationReason for Ordering Blood: AcuteAre the blood/blood products to be transfused? YIs the patient having/had surgery? YNWhen [id number] Performed By: #### B RC, BTS ####[facility] [address] [place], [address] Basic Metabolic Profile (BMP )on 03-26-2024 BUN Normal 7-18 [facility] Comment on above: Result Comment: Canc elled via OM: Order cancelled - Patient discharged Performed By: #### L 100.0100, L500.2500 ####[facility] [address] [place], [address] BUN/CRE Normal 10-20 [facility] Comment on above: Result Comment: Canc elled via OM: Order cancelled - Patient discharged Performed By: #### L 100.0100, L500.2500 ####[facility] [address] [place], [address] CA,Total Normal 8.5-10.1 [facility] Comment on above: Result Comment: Canc elled via OM: Order cancelled - Patient discharged Performed By: #### L 100.0100, L500.2500 ####[facility] [address] [place], [address] CL Normal 98-107 [facility] Comment on above: Result Comment: Canc elled via OM: Order cancelled - Patient discharged Performed By: #### L 100.0100, L500.2500 ####[facility] [address] [place], [address] CO2 Normal 21.0-32.0 [facility] Comment on above: Result Comment: Canc elled via OM: Order cancelled - Patient discharged Performed By: #### L 100.0100, L500.2500 ####[facility] [address] [place], [address] CREAT,SERUM Normal 0.55-1.02 [facility] Comment on above: Result Comment: Canc elled via OM: Order cancelled - Patient discharged Performed By: #### L 100.0100, L500.2500 ####[facility] [address] [place], [address] EST GFR Normal >60 [facility] Comment on above: Result Comment: Canc elled via OM: Order cancelled - Patient discharged Performed By: #### L 100.0100, L500.2500 ####[facility] [address] [place], [address] EST GFR - AA Normal >60 [facility] Comment on above: Result Comment: Canc elled via OM: Order cancelled - Patient discharged Performed By: #### L 100.0100, L500.2500 ####[facility] [address] [place], [address] GAP Normal 5-15 [facility] Comment on above: Result Comment: Canc elled via OM: Order cancelled - Patient discharged Performed By: #### L 100.0100, L500.2500 ####[facility] [address] [place], [address] GLU Normal 74-106 [facility] Comment on above: Result Comment: Canc elled via OM: Order cancelled - Patient discharged Performed By: #### L 100.0100, L500.2500 ####[facility] [address] [place], [address] Potassium Normal 3.5-5.1 [facility] Comment on above: Result Comment: Canc elled via OM: Order cancelled - Patient discharged Performed By: #### L 100.0100, L500.2500 ####[facility] [address] [place], [address] Basic Metabolic Profile (BMP) Normal 136-145 [facility] Comment on above: Result Comment: Canc elled via OM: Order cancelled - Patient discharged Performed By: #### L 100.0100, L500.2500 ####[facility] [address] [place], [address] Bedside Glucoseon 03-26-2024 FINGERSTICK GLU 123 mg/dL High 74-106 [facility] Comment on above: Result Comment: LEVI HYDE OF PATIENT CARE PER NURSING PROTOCOL Performed By: #### L 501.080 ####[facility] [address] [place], [address] CBC W/Diff, Automatedon 11-2 Absolute Neut Normal 2.0-7.7 [facility] Comment on above: Result Comment: Canc elled via OM: Order cancelled - Patient discharged Performed By: #### L 100.0100, L500.2500 ####[facility] [address] [place], [address] HCT Normal 37-47 [facility] Comment on above: Result Comment: Canc elled via OM: Order cancelled - Patient discharged Performed By: #### L 100.0100, L500.2500 ####[facility] [address] [place], [address] HGB Normal 12.0-15.0 [facility] Comment on above: Result Comment: Canc elled via OM: Order cancelled - Patient discharged Performed By: #### L 100.0100, L500.2500 ####[facility] [address] [place], [address] MCH Normal 27.0-32.0 [facility] Comment on above: Result Comment: Canc elled via OM: Order cancelled - Patient discharged Performed By: #### L 100.0100, L500.2500 ####[facility] [address] [place], [address] MCHC Normal 32-36 [facility] Comment on above: Result Comment: Canc elled via OM: Order cancelled - Patient discharged Performed By: #### L 100.0100, L500.2500 ####[facility] [address] [place], [address] MCV Normal 81-99 [facility] Comment on above: Result Comment: Canc elled via OM: Order cancelled - Patient discharged Performed By: #### L 100.0100, L500.2500 ####[facility] [address] [place], [address] NEUT% Normal 47-70 [facility] Comment on above: Result Comment: Canc elled via OM: Order cancelled - Patient discharged Performed By: #### L 100.0100, L500.2500 ####[facility] [address] [place], [address] PLT Normal 150-450 [facility] Comment on above: Result Comment: Canc elled via OM: Order cancelled - Patient discharged Performed By: #### L 100.0100, L500.2500 ####[facility] [address] [place], [address] RBC Normal 4.2-5.4 [facility] Comment on above: Result Comment: Canc elled via OM: Order cancelled - Patient discharged Performed By: #### L 100.0100, L500.2500 ####[facility] [address] [place], [address] RDW CV Normal 11.6-14.6 [facility] Comment on above: Result Comment: Canc elled via OM: Order cancelled - Patient discharged Performed By: #### L 100.0100, L500.2500 ####[facility] [address] [place], [address] RDW SD Normal 35.1-43.9 [facility] Comment on above: Result Comment: Canc elled via OM: Order cancelled - Patient discharged Performed By: #### L 100.0100, L500.2500 ####[facility] [address] [place], [address] WBC Normal 4.4-11.0 [facility] Comment on above: Result Comment: Canc elled via OM: Order cancelled - Patient discharged Performed By: #### L 100.0100, L500.2500 ####[facility] [address] [place], [address] Prothrombin Time w/INRon INR Coag (PPP) [Relative time] 3.0 {INR} Normal [facility] Comment on above: Performed By: #### L 300.3900 ####[facility] [address] [place], [address] PT Coag (PPP) [Time] 30.6 s High 11.7-14.9 [facility] Comment on above: Performed By: #### L 300.3900 ####[facility] [address] [place], [address] Basic Metabolic Profile (BMP )on 03-25-2024 BUN Normal 7-18 [facility] Comment on above: Result Comment: Canc elled via OM: Order cancelled - Patient discharged Performed By: #### L 500.2500, L100.0100 ####[facility] [address] [place], [address] BUN/CRE Normal 10-20 [facility] Comment on above: Result Comment: Canc elled via OM: Order cancelled - Patient discharged Performed By: #### L 500.2500, L100.0100 ####[facility] [address] [place], [address] CA,Total Normal 8.5-10.1 [facility] Comment on above: Result Comment: Canc elled via OM: Order cancelled - Patient discharged Performed By: #### L 500.2500, L100.0100 ####[facility] [address] [place], [address] CL Normal 98-107 [facility] Comment on above: Result Comment: Canc elled via OM: Order cancelled - Patient discharged Performed By: #### L 500.2500, L100.0100 ####[facility] [address] [place], [address] CO2 Normal 21.0-32.0 [facility] Comment on above: Result Comment: Canc elled via OM: Order cancelled - Patient discharged Performed By: #### L 500.2500, L100.0100 ####[facility] [address] [place], [address] CREAT,SERUM Normal 0.55-1.02 [facility] Comment on above: Result Comment: Canc elled via OM: Order cancelled - Patient discharged Performed By: #### L 500.2500, L100.0100 ####[facility] [address] [place], [address] EST GFR Normal >60 [facility] Comment on above: Result Comment: Canc elled via OM: Order cancelled - Patient discharged Performed By: #### L 500.2500, L100.0100 ####[facility] [address] [place], [address] EST GFR - AA Normal >60 [facility] Comment on above: Result Comment: Canc elled via OM: Order cancelled - Patient discharged Performed By: #### L 500.2500, L100.0100 ####[facility] [address] [place], [address] GAP Normal 5-15 [facility] Comment on above: Result Comment: Canc elled via OM: Order cancelled - Patient discharged Performed By: #### L 500.2500, L100.0100 ####[facility] [facility] [address] [place], [address] GLU Normal 74-106 [facility] Comment on above: Result Comment: Canc elled via OM: Order cancelled - Patient discharged Performed By: #### L 500.2500, L100.0100 ####[facility] [address] [place], [address] Potassium Normal 3.5-5.1 [facility] Comment on above: Result Comment: Canc elled via OM: Order cancelled - Patient discharged Performed By: #### L 500.2500, L100.0100 ####[facility] [address] [place], [address] Basic Metabolic Profile (BMP) Normal 136-145 [facility] Comment on above: Result Comment: Canc elled via OM: Order cancelled - Patient discharged Performed By: #### L 500.2500, L100.0100 ####[facility] [address] [place], [address] Bedside Glucoseon 03-25-2024 FINGERSTICK GLU 139 mg/dL High 74-106 [facility] Comment on above: Result Comment: LEVI HYDE OF PATIENT CARE PER NURSING PROTOCOL Performed By: #### L 501.080 ####[facility] [address] [place], [address] CBC W/Diff, Automatedon 03-03 Absolute Neut Normal 2.0-7.7 [facility] Comment on above: Result Comment: Canc elled via OM: Order cancelled - Patient discharged Performed By: #### L 500.2500, L100.0100 ####[facility] [address] [place], [address] HCT Normal 37-47 [facility] Comment on above: Result Comment: Canc elled via OM: Order cancelled - Patient discharged Performed By: #### L 500.2500, L100.0100 ####[facility] [address] [place], [address] HGB Normal 12.0-15.0 [facility] Comment on above: Result Comment: Canc elled via OM: Order cancelled - Patient discharged Performed By: #### L 500.2500, L100.0100 ####[facility] [address] [place], [address] MCH Normal 27.0-32.0 [facility] Comment on above: Result Comment: Canc elled via OM: Order cancelled - Patient discharged Performed By: #### L 500.2500, L100.0100 ####[facility] [address] [place], [address] MCHC Normal 32-36 [facility] Comment on above: Result Comment: Canc elled via OM: Order cancelled - Patient discharged Performed By: #### L 500.2500, L100.0100 ####[facility] [address] [place], [address] MCV Normal 81-99 [facility] Comment on above: Result Comment: Canc elled via OM: Order cancelled - Patient discharged Performed By: #### L 500.2500, L100.0100 ####[facility] [address] [place], [address] NEUT% Normal 47-70 [facility] Comment on above: Result Comment: Canc elled via OM: Order cancelled - Patient discharged Performed By: #### L 500.2500, L100.0100 ####[facility] [address] [place], [address] PLT Normal 150-450 [facility] Comment on above: Result Comment: Canc elled via OM: Order cancelled - Patient discharged Performed By: #### L 500.2500, L100.0100 ####[facility] [address] [place], [address] RBC Normal 4.2-5.4 [facility] Comment on above: Result Comment: Canc elled via OM: Order cancelled - Patient discharged Performed By: #### L 500.2500, L100.0100 ####[facility] [address] [place], [address] RDW CV Normal 11.6-14.6 [facility] Comment on above: Result Comment: Canc elled via OM: Order cancelled - Patient discharged Performed By: #### L 500.2500, L100.0100 ####[facility] [address] [place], [address] RDW SD Normal 35.1-43.9 [facility] Comment on above: Result Comment: Canc elled via OM: Order cancelled - Patient discharged Performed By: #### L 500.2500, L100.0100 ####[facility] [address] [place], [address] WBC Normal 4.4-11.0 [facility] Comment on above: Result Comment: Canc elled via OM: Order cancelled - Patient discharged Performed By: #### L 500.2500, L100.0100 ####[facility] [address] [place], [address] Basic Metabolic Profile (BMP )on 03-24-2024 BUN Normal 7-18 [facility] Comment on above: Result Comment: Canc elled via OM: Order cancelled - Patient discharged Performed By: #### L 100.0100, L500.2500 ####[facility] [address] [place], [address] BUN/CRE Normal 10-20 [facility] Comment on above: Result Comment: Canc elled via OM: Order cancelled - Patient discharged Performed By: #### L 100.0100, L500.2500 ####[facility] [address] [place], [address] CA,Total Normal 8.5-10.1 [facility] Comment on above: Result Comment: Canc elled via OM: Order cancelled - Patient discharged Performed By: #### L 100.0100, L500.2500 ####[facility] [address] [place], [address] CL Normal 98-107 [facility] Comment on above: Result Comment: Canc elled via OM: Order cancelled - Patient discharged Performed By: #### L 100.0100, L500.2500 ####[facility] [address] [place], [address] CO2 Normal 21.0-32.0 [facility] Comment on above: Result Comment: Canc elled via OM: Order cancelled - Patient discharged Performed By: #### L 100.0100, L500.2500 ####[facility] [address] [place], [address] CREAT,SERUM Normal 0.55-1.02 [facility] Comment on above: Result Comment: Canc elled via OM: Order cancelled - Patient discharged Performed By: #### L 100.0100, L500.2500 ####[facility] [address] [place], [address] EST GFR Normal >60 [facility] Comment on above: Result Comment: Canc elled via OM: Order cancelled - Patient discharged Performed By: #### L 100.0100, L500.2500 ####[facility] [address] [place], [address] EST GFR - AA Normal >60 [facility] Comment on above: Result Comment: Canc elled via OM: Order cancelled - Patient discharged Performed By: #### L 100.0100, L500.2500 ####[facility] [address] [place], [address] GAP Normal 5-15 [facility] Comment on above: Result Comment: Canc elled via OM: Order cancelled - Patient discharged Performed By: #### L 100.0100, L500.2500 ####[facility] [address] [place], [address] GLU Normal 74-106 [facility] Comment on above: Result Comment: Canc elled via OM: Order cancelled - Patient discharged Performed By: #### L 100.0100, L500.2500 ####[facility] [address] [place], [address] Potassium Normal 3.5-5.1 [facility] Comment on above: Result Comment: Canc elled via OM: Order cancelled - Patient discharged Performed By: #### L 100.0100, L500.2500 ####[facility] [address] [place], [address] Basic Metabolic Profile (BMP) Normal 136-145 [facility] Comment on above: Result Comment: Canc elled via OM: Order cancelled - Patient discharged Performed By: #### L 100.0100, L500.2500 ####[facility] [address] [place], [address] Bedside Glucoseon 03-24-2024 FINGERSTICK GLU 120 mg/dL High 74-106 [facility] Comment on above: Result Comment: LEVI HYDE OF PATIENT CARE PER NURSING PROTOCOL Performed By: #### L 501.080 ####[facility] [address] [place], [address] CBC W/Diff, Automatedon 03-03 Absolute Neut Normal 2.0-7.7 [facility] Comment on above: Result Comment: Canc elled via OM: Order cancelled - Patient discharged Performed By: #### L 100.0100, L500.2500 ####[facility] [address] [place], [address] HCT Normal 37-47 [facility] Comment on above: Result Comment: Canc elled via OM: Order cancelled - Patient discharged Performed By: #### L 100.0100, L500.2500 ####[facility] [address] [place], [address] HGB Normal 12.0-15.0 [facility] Comment on above: Result Comment: Canc elled via OM: Order cancelled - Patient discharged Performed By: #### L 100.0100, L500.2500 ####[facility] [address] [place], [address] MCH Normal 27.0-32.0 [facility] Comment on above: Result Comment: Canc elled via OM: Order cancelled - Patient discharged Performed By: #### L 100.0100, L500.2500 ####[facility] [address] [place], [address] MCHC Normal 32-36 [facility] Comment on above: Result Comment: Canc elled via OM: Order cancelled - Patient discharged Performed By: #### L 100.0100, L500.2500 ####[facility] [address] [place], [address] MCV Normal 81-99 [facility] Comment on above: Result Comment: Canc elled via OM: Order cancelled - Patient discharged Performed By: #### L 100.0100, L500.2500 ####[facility] [address] [place], [address] NEUT% Normal 47-70 [facility] Comment on above: Result Comment: Canc elled via OM: Order cancelled - Patient discharged Performed By: #### L 100.0100, L500.2500 ####[facility] [address] [place], [address] PLT Normal 150-450 [facility] Comment on above: Result Comment: Canc elled via OM: Order cancelled - Patient discharged Performed By: #### L 100.0100, L500.2500 ####[facility] [address] [place], [address] RBC Normal 4.2-5.4 [facility] Comment on above: Result Comment: Canc elled via OM: Order cancelled - Patient discharged Performed By: #### L 100.0100, L500.2500 ####[facility] [address] [place], [address] RDW CV Normal 11.6-14.6 [facility] Comment on above: Result Comment: Canc elled via OM: Order cancelled - Patient discharged Performed By: #### L 100.0100, L500.2500 ####[facility] [address] [place], [address] RDW SD Normal 35.1-43.9 [facility] Comment on above: Result Comment: Canc elled via OM: Order cancelled - Patient discharged Performed By: #### L 100.0100, L500.2500 ####[facility] [address] [place], [address] WBC Normal 4.4-11.0 [facility] Comment on above: Result Comment: Canc elled via OM: Order cancelled - Patient discharged Performed By: #### L 100.0100, L500.2500 ####[facility] [address] [place], [address] Basic Metabolic Profile (BMP )on 03-23-2024 BUN/CRE 33.5 RATIO High 10-20 [facility] Comment on above: Performed By: #### L 500.2500 ####[facility] [address] [place], [address] CA,Total 8.6 mg/dL Normal 8.5-10.1 [facility] Comment on above: Performed By: #### L 500.2500 ####[facility] [address] [place], [address] Chloride [Moles/Vol] 111 mmol/L High 98-107 [facility] Comment on above: Performed By: #### L 500.2500 ####[facility] [address] [place], [address] CO2 [Moles/Vol] 22.0 mmol/L Normal 21.0-32.0 [facility] Comment on above: Performed By: #### L 500.2500 ####[facility] [address] [place], [address] Creatinine [Mass/Vol] 0.87 mg/dL Normal 0.55-1.02 [facility] Comment on above: Result Comment: The validity of the calculated GFR GFRAA in patients over70 years has not been determined. Clinical correlation isessential. Performed By: #### L 500.2500 ####[facility] [address] [place], [address] ECRCL 43.83 ml/min Normal [facility] Comment on above: Performed By: #### L 500.2500 ####[facility] [address] [place], [address] EST GFR - AA 80 mL/min Normal >60 [facility] Comment on above: Result Comment: Afri can [place] GFR Calc Performed By: #### L 500.2500 ####[facility] [address] [place], [address] GAP 4 Low 5-15 [facility] Comment on above: Performed By: #### L 500.2500 ####[facility] [address] [place], [address] GFR/1.73 sq M.predicted among non-blacks MDRD (S/P/Bld) [Vol rate/Area] 66 mL/min/{1.73_m2} Normal >60 [facility] Comment on above: Result Comment: Non- GFR Calc Performed By: #### L 500.2500 ####[facility] [address] [place], [address] Glucose [Mass/Vol] 136 mg/dL High 74-[address] [facility] Comment on above: Result Comment: Fast ing Glucose result greater than or equal to 126 mg/dLsuggests DIABETES MELLITUS per A.D.A. criteria. Performed By: #### L 500.2500 ####[facility] [address] [place], [address] Potassium [Moles/Vol] 4.1 mmol/L Normal 3.5-5.1 [facility] Comment on above: Performed By: #### L 500.2500 ####[facility] [address] [place], [address] Sodium [Moles/Vol] 138 mmol/L Normal 136-[address] [facility] Comment on above: Performed By: #### L 500.2500 ####[facility] [address] [place], [address] Urea nitrogen [Mass/Vol] 29 mg/dL High 7-18 [facility] Comment on above: Performed By: #### L 500.2500 ####[facility] [address] [place], [address] BUN Normal 7-18 [facility] Comment on above: Result Comment: Canc elled via OM: Order cancelled - Patient discharged Performed By: #### L 500.2500, L100.0100 ####[facility] [address] [place], [address] BUN/CRE Normal 10-20 [facility] Comment on above: Result Comment: Canc elled via OM: Order cancelled - Patient discharged Performed By: #### L 500.2500, L100.0100 ####[facility] [address] [place], [address] CA,Total Normal 8.5-10.1 [facility] Comment on above: Result Comment: Canc elled via OM: Order cancelled - Patient discharged Performed By: #### L 500.2500, L100.0100 ####[facility] [address] [place], [address] CL Normal 98-107 [facility] Comment on above: Result Comment: Canc elled via OM: Order cancelled - Patient discharged Performed By: #### L 500.2500, L100.0100 ####[facility] [address] [place], [address] CO2 Normal 21.0-32.0 [facility] Comment on above: Result Comment: Canc elled via OM: Order cancelled - Patient discharged Performed By: #### L 500.2500, L100.0100 ####[facility] [address] [place], [address] CREAT,SERUM Normal 0.55-1.02 [facility] Comment on above: Result Comment: Canc elled via OM: Order cancelled - Patient discharged Performed By: #### L 500.2500, L100.0100 ####[facility] [address] [place], [address] EST GFR Normal >60 [facility] Comment on above: Result Comment: Canc elled via OM: Order cancelled - Patient discharged Performed By: #### L 500.2500, L100.0100 ####[facility] [address] [place], [address] EST GFR - AA Normal >60 [facility] Comment on above: Result Comment: Canc elled via OM: Order cancelled - Patient discharged Performed By: #### L 500.2500, L100.0100 ####[facility] [address] [place], [address] GAP Normal 5-15 [facility] Comment on above: Result Comment: Canc elled via OM: Order cancelled - Patient discharged Performed By: #### L 500.2500, L100.0100 ####[facility] [address] [place], [address] GLU Normal 74-106 [facility] Comment on above: Result Comment: Canc elled via OM: Order cancelled - Patient discharged Performed By: #### L 500.2500, L100.0100 ####[facility] [address] [place], [address] Potassium Normal 3.5-5.1 [facility] Comment on above: Result Comment: Canc elled via OM: Order cancelled - Patient discharged Performed By: #### L 500.2500, L100.0100 ####[facility] [address] [place], [address] Basic Metabolic Profile (BMP) Normal 136-145 [facility] Comment on above: Result Comment: Canc elled via OM: Order cancelled - Patient discharged Performed By: #### L 500.2500, L100.0100 ####[facility] [address] [place], [address] Bedside Glucoseon 03-23-2024 FINGERSTICK GLU 155 mg/dL High 74-106 [facility] Comment on above: Result Comment: LEVI HYDE OF PATIENT CARE PER NURSING PROTOCOL Performed By: #### L 501.080 ####[facility] [address] [place], [address] CBC W/Diff, Automatedon 03-03 Absolute Neut Normal 2.0-7.7 [facility] Comment on above: Result Comment: Canc elled via OM: Order cancelled - Patient discharged Performed By: #### L 500.2500, L100.0100 ####[facility] [address] [place], [address] HCT Normal 37-47 [facility] Comment on above: Result Comment: Canc elled via OM: Order cancelled - Patient discharged Performed By: #### L 500.2500, L100.0100 ####[facility] [address] [place], [address] HGB Normal 12.0-15.0 [facility] Comment on above: Result Comment: Canc elled via OM: Order cancelled - Patient discharged Performed By: #### L 500.2500, L100.0100 ####[facility] [address] [place], [address] MCH Normal 27.0-32.0 [facility] Comment on above: Result Comment: Canc elled via OM: Order cancelled - Patient discharged Performed By: #### L 500.2500, L100.0100 ####[facility] [address] [place], [address] MCHC Normal 32-36 [facility] Comment on above: Result Comment: Canc elled via OM: Order cancelled - Patient discharged Performed By: #### L 500.2500, L100.0100 ####[facility] [address] [place], [address] MCV Normal 81-99 [facility] Comment on above: Result Comment: Canc elled via OM: Order cancelled - Patient discharged Performed By: #### L 500.2500, L100.0100 ####[facility] [address] [place], [address] NEUT% Normal 47-70 [facility] Comment on above: Result Comment: Canc elled via OM: Order cancelled - Patient discharged Performed By: #### L 500.2500, L100.0100 ####[facility] [address] [place], [address] PLT Normal 150-450 [facility] Comment on above: Result Comment: Canc elled via OM: Order cancelled - Patient discharged Performed By: #### L 500.2500, L100.0100 ####[facility] [address] [place], [address] RBC Normal 4.2-5.4 [facility] Comment on above: Result Comment: Canc elled via OM: Order cancelled - Patient discharged Performed By: #### L 500.2500, L100.0100 ####[facility] [address] [place], [address] RDW CV Normal 11.6-14.6 [facility] Comment on above: Result Comment: Canc elled via OM: Order cancelled - Patient discharged Performed By: #### L 500.2500, L100.0100 ####[facility] [address] [place], [address] RDW SD Normal 35.1-43.9 [facility] Comment on above: Result Comment: Canc elled via OM: Order cancelled - Patient discharged Performed By: #### L 500.2500, L100.0100 ####[facility] [address] [place], [address] WBC Normal 4.4-11.0 [facility] Comment on above: Result Comment: Canc elled via OM: Order cancelled - Patient discharged Performed By: #### L 500.2500, L100.0100 ####[facility] [address] [place], [address] COVID 19 AG RAPID (XOCHILT Vaughn)on 03-23-2024 SARS-CoV-2 (COVID-19) RNA MARCOS+probe Ql (Unsp spec) Normal [facility] Comment on above: Performed By: #### M 100.505 ####[facility] [address], [address] Consultation - Surgicalon Consultation - Surgical Normal [facility] SARS-CoV-2 (COVID-19) Ag IA. rapid Ql (Resp)Ordered By: Jason Smith on 03-23-2024 SARS-CoV-2 Antigen (Rapid) [facility] Basic Metabolic Profile (BMP )on 03-22-2024 BUN Normal 7-18 [facility] Comment on above: Result Comment: Canc elled via OM: Order cancelled - Patient discharged Performed By: #### L 100.0100, L500.2500 ####[facility] [address] [place], [address] BUN/CRE Normal 10-20 [facility] Comment on above: Result Comment: Canc elled via OM: Order cancelled - Patient discharged Performed By: #### L 100.0100, L500.2500 ####[facility] [address] [place], [address] CA,Total Normal 8.5-10.1 [facility] Comment on above: Result Comment: Canc elled via OM: Order cancelled - Patient discharged Performed By: #### L 100.0100, L500.2500 ####[facility] [address] [place], [address] CL Normal 98-107 [facility] Comment on above: Result Comment: Canc elled via OM: Order cancelled - Patient discharged Performed By: #### L 100.0100, L500.2500 ####[facility] [address] [place], [address] CO2 Normal 21.0-32.0 [facility] Comment on above: Result Comment: Canc elled via OM: Order cancelled - Patient discharged Performed By: #### L 100.0100, L500.2500 ####[facility] [address] [place], [address] CREAT,SERUM Normal 0.55-1.02 [facility] Comment on above: Result Comment: Canc elled via OM: Order cancelled - Patient discharged Performed By: #### L 100.0100, L500.2500 ####[facility] [address] [place], [address] EST GFR Normal >60 [facility] Comment on above: Result Comment: Canc elled via OM: Order cancelled - Patient discharged Performed By: #### L 100.0100, L500.2500 ####[facility] [address] [place], [address] EST GFR - AA Normal >60 [facility] Comment on above: Result Comment: Canc elled via OM: Order cancelled - Patient discharged Performed By: #### L 100.0100, L500.2500 ####[facility] [address] [place], [address] GAP Normal 5-15 [facility] Comment on above: Result Comment: Canc elled via OM: Order cancelled - Patient discharged Performed By: #### L 100.0100, L500.2500 ####[facility] [address] [place], [address] GLU Normal 74-106 [facility] Comment on above: Result Comment: Canc elled via OM: Order cancelled - Patient discharged Performed By: #### L 100.0100, L500.2500 ####[facility] [address] [place], [address] Potassium Normal 3.5-5.1 [facility] Comment on above: Result Comment: Canc elled via OM: Order cancelled - Patient discharged Performed By: #### L 100.0100, L500.2500 ####[facility] [address] [place], [address] Basic Metabolic Profile (BMP) Normal 136-145 [facility] Comment on above: Result Comment: Canc elled via OM: Order cancelled - Patient discharged Performed By: #### L 100.0100, L500.2500 ####[facility] [address] [place], [address] Bedside Glucoseon 03-22-2024 FINGERSTICK GLU 130 mg/dL High 74-106 [facility] Comment on above: Result Comment: LEVI MARY ELLEN OF PATIENT CARE PER NURSING PROTOCOL Performed By: #### L 501.080 ####[facility] [address] [place], [address] CBC W/Diff, Automatedon - Absolute Neut Normal 2.0-7.7 [facility] Comment on above: Result Comment: Canc elled via OM: Order cancelled - Patient discharged Performed By: #### L 100.0100, L500.2500 ####[facility] [address] [place], [address] HCT Normal 37-47 [facility] Comment on above: Result Comment: Canc elled via OM: Order cancelled - Patient discharged Performed By: #### L 100.0100, L500.2500 ####[facility] [address] [place], [address] HGB Normal 12.0-15.0 [facility] Comment on above: Result Comment: Canc elled via OM: Order cancelled - Patient discharged Performed By: #### L 100.0100, L500.2500 ####[facility] [address] [place], [address] MCH Normal 27.0-32.0 [facility] Comment on above: Result Comment: Canc elled via OM: Order cancelled - Patient discharged Performed By: #### L 100.0100, L500.2500 ####[facility] [address] [place], [address] MCHC Normal 32-36 [facility] Comment on above: Result Comment: Canc elled via OM: Order cancelled - Patient discharged Performed By: #### L 100.0100, L500.2500 ####[facility] [address] [place], [address] MCV Normal 81-99 [facility] Comment on above: Result Comment: Canc elled via OM: Order cancelled - Patient discharged Performed By: #### L 100.0100, L500.2500 ####[facility] [address] [place], [address] NEUT% Normal 47-70 [facility] Comment on above: Result Comment: Canc elled via OM: Order cancelled - Patient discharged Performed By: #### L 100.0100, L500.2500 ####[facility] [address] [place], [address] PLT Normal 150-450 [facility] Comment on above: Result Comment: Canc elled via OM: Order cancelled - Patient discharged Performed By: #### L 100.0100, L500.2500 ####[facility] [address] [place], [address] RBC Normal 4.2-5.4 [facility] Comment on above: Result Comment: Canc elled via OM: Order cancelled - Patient discharged Performed By: #### L 100.0100, L500.2500 ####[facility] [address] [place], [address] RDW CV Normal 11.6-14.6 [facility] Comment on above: Result Comment: Canc elled via OM: Order cancelled - Patient discharged Performed By: #### L 100.0100, L500.2500 ####[facility] [address] [place], [address] RDW SD Normal 35.1-43.9 [facility] Comment on above: Result Comment: Canc elled via OM: Order cancelled - Patient discharged Performed By: #### L 100.0100, L500.2500 ####[facility] [address] [place], [address] WBC Normal 4.4-11.0 [facility] Comment on above: Result Comment: Canc elled via OM: Order cancelled - Patient discharged Performed By: #### L 100.0100, L500.2500 ####[facility] [address] [place], [address] Prothrombin Time w/INRon INR Coag (PPP) [Relative time] 2.5 {INR} Normal [facility] Comment on above: Performed By: #### L 300.3900 ####[facility] [address] [place], [address] PT Coag (PPP) [Time] 27.1 s High 11.7-14.9 [facility] Comment on above: Performed By: #### L 300.3900 ####[facility] [address] [place], [address] Basic Metabolic Profile (BMP )on 03-21-2024 BUN/CRE 23.3 RATIO High 02-18 [facility] Comment on above: Performed By: #### L 500.2500 ####[facility] [address] [place], [address] CA,Total 8.9 mg/dL Normal 8.5-10.1 [facility] Comment on above: Performed By: #### L 500.2500 ####[facility] [address] [place], [address] Chloride [Moles/Vol] 110 mmol/L High 98-107 [facility] Comment on above: Performed By: #### L 500.2500 ####[facility] [address] [place], [address] CO2 [Moles/Vol] 24.0 mmol/L Normal 21.0-32.0 [facility] Comment on above: Performed By: #### L 500.2500 ####[facility] [address] [place], [address] Creatinine [Mass/Vol] 0.73 mg/dL Normal 0.55-1.02 [facility] Comment on above: Result Comment: The validity of the calculated GFR GFRAA in patients over70 years has not been determined. Clinical correlation isessential. Performed By: #### L 500.2500 ####[facility] [address] [place], [address] ECRCL 47.11 ml/min Normal [facility] Comment on above: Performed By: #### L 500.2500 ####[facility] [address] [place], [address] EST GFR - AA 97 mL/min Normal >60 [facility] Comment on above: Result Comment: Afri can [place] GFR Calc Performed By: #### L 500.2500 ####[facility] [address] [place], [address] GAP 5 Normal 5-15 [facility] Comment on above: Performed By: #### L 500.2500 ####[facility] [address] [place], [address] GFR/1.73 sq M.predicted among non-blacks MDRD (S/P/Bld) [Vol rate/Area] 81 mL/min/{1.73_m2} Normal >60 [facility] Comment on above: Result Comment: Non- GFR Calc Performed By: #### L 500.2500 ####[facility] [address] [place], [address] Glucose [Mass/Vol] 111 mg/dL High 74-[address] [facility] Comment on above: Result Comment: Fast ing Glucose result from 100 to 125 mg/dLsuggests IMPAIRED HOMEOSTASIS per A.D.A. criteria. Performed By: #### L 500.2500 ####[facility] [address] [place], [address] Potassium [Moles/Vol] 3.3 mmol/L Low 3.5-5.1 [facility] Comment on above: Performed By: #### L 500.2500 ####[facility] [address] [place], [address] Sodium [Moles/Vol] 140 mmol/L Normal 136-[address] [facility] Comment on above: Performed By: #### L 500.2500 ####[facility] [address] [place], [address] Urea nitrogen [Mass/Vol] 17 mg/dL Normal 7-18 [facility] Comment on above: Performed By: #### L 500.2500 ####[facility] [address] [place], [address] BUN Normal 7-18 [facility] Comment on above: Result Comment: Canc elled via OM: Order cancelled - Patient discharged Performed By: #### L 100.0100, L500.2500 ####[facility] [address] [place], [address] BUN/CRE Normal 10-20 [facility] Comment on above: Result Comment: Canc elled via OM: Order cancelled - Patient discharged Performed By: #### L 100.0100, L500.2500 ####[facility] [address] [place], [address] CA,Total Normal 8.5-10.1 [facility] Comment on above: Result Comment: Canc elled via OM: Order cancelled - Patient discharged Performed By: #### L 100.0100, L500.2500 ####[facility] [address] [place], [address] CL Normal 98-107 [facility] Comment on above: Result Comment: Canc elled via OM: Order cancelled - Patient discharged Performed By: #### L 100.0100, L500.2500 ####[facility] [address] [place], [address] CO2 Normal 21.0-32.0 [facility] Comment on above: Result Comment: Canc elled via OM: Order cancelled - Patient discharged Performed By: #### L 100.0100, L500.2500 ####[facility] [address] [place], [address] CREAT,SERUM Normal 0.55-1.02 [facility] Comment on above: Result Comment: Canc elled via OM: Order cancelled - Patient discharged Performed By: #### L 100.0100, L500.2500 ####[facility] [address] [place], [address] EST GFR Normal >60 [facility] Comment on above: Result Comment: Canc elled via OM: Order cancelled - Patient discharged Performed By: #### L 100.0100, L500.2500 ####[facility] [address] [place], [address] EST GFR - AA Normal >60 [facility] Comment on above: Result Comment: Canc elled via OM: Order cancelled - Patient discharged Performed By: #### L 100.0100, L500.2500 ####[facility] [address] [place], [address] GAP Normal 5-15 [facility] Comment on above: Result Comment: Canc elled via OM: Order cancelled - Patient discharged Performed By: #### L 100.0100, L500.2500 ####[facility] [address] [place], [address] GLU Normal 74-106 [facility] Comment on above: Result Comment: Canc elled via OM: Order cancelled - Patient discharged Performed By: #### L 100.0100, L500.2500 ####[facility] [address] [place], [address] Potassium Normal 3.5-5.1 [facility] Comment on above: Result Comment: Canc elled via OM: Order cancelled - Patient discharged Performed By: #### L 100.0100, L500.2500 ####[facility] [address] [place], [address] Basic Metabolic Profile (BMP) Normal 136-145 [facility] Comment on above: Result Comment: Canc elled via OM: Order cancelled - Patient discharged Performed By: #### L 100.0100, L500.2500 ####[facility] [address] [place], [address] Bedside Glucoseon 03-21-2024 FINGERSTICK GLU 108 mg/dL High 74-106 [facility] Comment on above: Result Comment: LEVI GEMENT OF PATIENT CARE PER NURSING PROTOCOL Performed By: #### L 501.080 ####[facility] [address] [place], [address] FINGERSTICK GLU 106 mg/dL Normal 74-106 [facility] Comment on above: Result Comment: LEVI GEMENT OF PATIENT CARE PER NURSING PROTOCOL Performed By: #### L 501.080 ####[facility] [address] [place], [address] FINGERSTICK GLU 117 mg/dL High 74-106 [facility] Comment on above: Result Comment: LEVI HYDE OF PATIENT CARE PER NURSING PROTOCOL Performed By: #### L 501.080 ####[facility] [address] [place], [address] CBC W/Diff, Automatedon 11-2 0-2023 Absolute Neut Normal 2.0-7.7 [facility] Comment on above: Result Comment: Canc elled via OM: Order cancelled - Patient discharged Performed By: #### L 100.0100, L500.2500 ####[facility] [address] [place], [address] HCT Normal 37-47 [facility] Comment on above: Result Comment: Canc elled via OM: Order cancelled - Patient discharged Performed By: #### L 100.0100, L500.2500 ####[facility] [address] [place], [address] HGB Normal 12.0-15.0 [facility] Comment on above: Result Comment: Canc elled via OM: Order cancelled - Patient discharged Performed By: #### L 100.0100, L500.2500 ####[facility] [address] [place], [address] MCH Normal 27.0-32.0 [facility] Comment on above: Result Comment: Canc elled via OM: Order cancelled - Patient discharged Performed By: #### L 100.0100, L500.2500 ####[facility] [address] [place], [address] MCHC Normal 32-36 [facility] Comment on above: Result Comment: Canc elled via OM: Order cancelled - Patient discharged Performed By: #### L 100.0100, L500.2500 ####[facility] [address] [place], [address] MCV Normal 81-99 [facility] Comment on above: Result Comment: Canc elled via OM: Order cancelled - Patient discharged Performed By: #### L 100.0100, L500.2500 ####[facility] [address] [place], [address] NEUT% Normal 47-70 [facility] Comment on above: Result Comment: Canc elled via OM: Order cancelled - Patient discharged Performed By: #### L 100.0100, L500.2500 ####[facility] [address] [place], [address] PLT Normal 150-450 [facility] Comment on above: Result Comment: Canc elled via OM: Order cancelled - Patient discharged Performed By: #### L 100.0100, L500.2500 ####[facility] [address] [place], [address] RBC Normal 4.2-5.4 [facility] Comment on above: Result Comment: Canc elled via OM: Order cancelled - Patient discharged Performed By: #### L 100.0100, L500.2500 ####[facility] [address] [place], [address] RDW CV Normal 11.6-14.6 [facility] Comment on above: Result Comment: Canc elled via OM: Order cancelled - Patient discharged Performed By: #### L 100.0100, L500.2500 ####[facility] [address] [place], [address] RDW SD Normal 35.1-43.9 [facility] Comment on above: Result Comment: Canc elled via OM: Order cancelled - Patient discharged Performed By: #### L 100.0100, L500.2500 ####[facility] [address] [place], [address] WBC Normal 4.4-11.0 [facility] Comment on above: Result Comment: Canc elled via OM: Order cancelled - Patient discharged Performed By: #### L 100.0100, L500.2500 ####[facility] [address] [place], [address] Basic Metabolic Profile (BMP )on 03-20-2024 BUN/CRE 21.3 RATIO High 10-20 [facility] Comment on above: Performed By: #### L 500.2500, L100.0100 ####[facility] [address] [place], [address] CA,Total 9.2 mg/dL Normal 8.5-10.1 [facility] Comment on above: Performed By: #### L 500.2500, L100.0100 ####[facility] [address] [place], [address] Chloride [Moles/Vol] 109 mmol/L High 98-107 [facility] Comment on above: Performed By: #### L 500.2500, L100.0100 ####[facility] [address] [place], [address] CO2 [Moles/Vol] 23.0 mmol/L Normal 21.0-32.0 [facility] Comment on above: Performed By: #### L 500.2500, L100.0100 ####[facility] [address] [place], [address] Creatinine [Mass/Vol] 0.70 mg/dL Normal 0.55-1.02 [facility] Comment on above: Result Comment: The validity of the calculated GFR GFRAA in patients over70 years has not been determined. Clinical correlation isessential. Performed By: #### L 500.2500, L100.0100 ####[facility] [address] [place], [address] ECRCL 47.06 ml/min Normal [facility] Comment on above: Performed By: #### L 500.2500, L100.0100 ####[facility] [address] [place], [address] EST GFR - AA 102 mL/min Normal >60 [facility] Comment on above: Result Comment: Afri can [place] GFR Calc Performed By: #### L 500.2500, L100.0100 ####[facility] [address] [place], [address] GAP 6 Normal 5-15 [facility] Comment on above: Performed By: #### L 500.2500, L100.0100 ####[facility] [address] [place], [address] GFR/1.73 sq M.predicted among non-blacks MDRD (S/P/Bld) [Vol rate/Area] 84 mL/min/{1.73_m2} Normal >60 [facility] Comment on above: Result Comment: Non- GFR Calc Performed By: #### L 500.2500, L100.0100 ####[facility] [address] [place], [address] Glucose [Mass/Vol] 136 mg/dL High 74-[address] [facility] Comment on above: Result Comment: Fast ing Glucose result greater than or equal to 126 mg/dLsuggests DIABETES MELLITUS per A.D.A. criteria. Performed By: #### L 500.2500, L100.0100 ####[facility] [address] [place], [address] Potassium [Moles/Vol] 3.2 mmol/L Low 3.5-5.1 [facility] Comment on above: Performed By: #### L 500.2500, L100.0100 ####[facility] [address] [place], [address] Sodium [Moles/Vol] 138 mmol/L Normal 136-[address] [facility] Comment on above: Performed By: #### L 500.2500, L100.0100 ####[facility] [address] [place], [address] Urea nitrogen [Mass/Vol] 15 mg/dL Normal 7-18 [facility] Comment on above: Performed By: #### L 500.2500, L100.0100 ####[facility] [address] [place], [address] BUN Normal 7-18 [facility] Comment on above: Result Comment: Canc elled via OM: Order cancelled - Patient discharged Performed By: #### L 500.2500, L100.0100 ####[facility] [address] [place], [address] BUN/CRE Normal 10-20 [facility] Comment on above: Result Comment: Canc elled via OM: Order cancelled - Patient discharged Performed By: #### L 500.2500, L100.0100 ####[facility] [address] [place], [address] CA,Total Normal 8.5-10.1 [facility] Comment on above: Result Comment: Canc elled via OM: Order cancelled - Patient discharged Performed By: #### L 500.2500, L100.0100 ####[facility] [address] [place], [address] CL Normal 98-107 [facility] Comment on above: Result Comment: Canc elled via OM: Order cancelled - Patient discharged Performed By: #### L 500.2500, L100.0100 ####[facility] [address] [place], [address] CO2 Normal 21.0-32.0 [facility] Comment on above: Result Comment: Canc elled via OM: Order cancelled - Patient discharged Performed By: #### L 500.2500, L100.0100 ####[facility] [address] [place], [address] CREAT,SERUM Normal 0.55-1.02 [facility] Comment on above: Result Comment: Canc elled via OM: Order cancelled - Patient discharged Performed By: #### L 500.2500, L100.0100 ####[facility] [address] [place], [address] EST GFR Normal >60 [facility] Comment on above: Result Comment: Canc elled via OM: Order cancelled - Patient discharged Performed By: #### L 500.2500, L100.0100 ####[facility] [address] [place], [address] EST GFR - AA Normal >60 [facility] Comment on above: Result Comment: Canc elled via OM: Order cancelled - Patient discharged Performed By: #### L 500.2500, L100.0100 ####[facility] [address] [place], [address] GAP Normal 5-15 [facility] Comment on above: Result Comment: Canc elled via OM: Order cancelled - Patient discharged Performed By: #### L 500.2500, L100.0100 ####[facility] [address] [place], [address] GLU Normal 74-106 [facility] Comment on above: Result Comment: Canc elled via OM: Order cancelled - Patient discharged Performed By: #### L 500.2500, L100.0100 ####[facility] [address] [place], [address] Potassium Normal 3.5-5.1 [facility] Comment on above: Result Comment: Canc elled via OM: Order cancelled - Patient discharged Performed By: #### L 500.2500, L100.0100 ####[facility] [address] [place], [address] Basic Metabolic Profile (BMP) Normal 136-145 [facility] Comment on above: Result Comment: Canc elled via OM: Order cancelled - Patient discharged Performed By: #### L 500.2500, L100.0100 ####[facility] [address] [place], [address] Bedside Glucoseon 03-20-2024 FINGERSTICK GLU 120 mg/dL High 74-106 [facility] Comment on above: Result Comment: LEVI GEMENT OF PATIENT CARE PER NURSING PROTOCOL Performed By: #### L 501.080 ####[facility] [address] [place], [address] FINGERSTICK GLU 79 mg/dL Normal 74-106 [facility] Comment on above: Result Comment: LEVI GEMENT OF PATIENT CARE PER NURSING PROTOCOL Performed By: #### L 501.080 ####[facility] [address] [place], [address] FINGERSTICK GLU 124 mg/dL High 74-106 [facility] Comment on above: Result Comment: LEVI GEMENT OF PATIENT CARE PER NURSING PROTOCOL Performed By: #### L 501.080 ####[facility] [address] [place], [address] FINGERSTICK GLU 152 mg/dL High 74-106 [facility] Comment on above: Result Comment: LEVI GEMENT OF PATIENT CARE PER NURSING PROTOCOL Performed By: #### L 501.080 ####[facility] [address] [place], [address] CBC W/Diff, Automatedon 03-02 Absolute Lymph 1.27 X10 3/uL Normal 0.83-4.51 [facility] Comment on above: Performed By: #### L 500.2500, L100.0100 ####[facility] [address] [place], [address] Absolute Neut 4.1 X10 3/uL Normal 2.0-7.7 [facility] Comment on above: Performed By: #### L 500.2500, L100.0100 ####[facility] [address] [place], [address] Basophils/100 WBC (Bld) 0.8 % Normal 0-[address] [facility] Comment on above: Performed By: #### L 500.2500, L100.0100 ####[facility] [address] [place], [address] Eosinophils/100 WBC (Bld) 1.7 % Normal 0-5 [facility] Comment on above: Performed By: #### L 500.2500, L100.0100 ####[facility] [address] [place], [address] Erythrocyte distribution width (RBC) [Ratio] 18.4 % High 11.6-14.6 [facility] Comment on above: Performed By: #### L 500.2500, L100.0100 ####[facility] [address] [place], [address] Hematocrit (Bld) [Volume fraction] 28.6 % Low 37-47 [facility] Comment on above: Performed By: #### L 500.2500, L100.0100 ####[facility] [address] [place], [address] Hemoglobin (Bld) [Mass/Vol] 9.2 g/dL Low 12.0-15.0 [facility] Comment on above: Performed By: #### L 500.2500, L100.0100 ####[facility] [address] [place], [address] IG% 0.500 Normal 0.0-0.9 [facility] Comment on above: Result Comment: IG% - Immature Granulocytes (promyelocytes, myelocytes andmetamyelocytes) > 1% indicates that a LEFT SHIFT is Present. Performed By: #### L 500.2500, L100.0100 ####[facility] [address] [place], [address] Lymphocytes/100 WBC (Bld) 19.9 % Normal 19-41 [facility] Comment on above: Performed By: #### L 500.2500, L100.0100 ####[facility] [address] [place], [address] MCH (RBC) [Entitic mass] 29.7 pg Normal 27.0-32.0 [facility] Comment on above: Performed By: #### L 500.2500, L100.0100 ####[facility] [address] [place], [address] MCHC (RBC) [Mass/Vol] 32.2 g/dL Normal 32-36 [facility] Comment on above: Performed By: #### L 500.2500, L100.0100 ####[facility] [address] [place], [address] MCV (RBC) [Entitic vol] 92.3 fL Normal 81-99 [facility] Comment on above: Performed By: #### L 500.2500, L100.0100 ####[facility] [address] [place], [address] Monocytes/100 WBC (Bld) 12.9 % High 0-[address] [facility] Comment on above: Performed By: #### L 500.2500, L100.0100 ####[facility] [address] [place], [address] Neutrophils/100 WBC (Bld) 64.2 % Normal 47-70 [facility] Comment on above: Performed By: #### L 500.2500, L100.0100 ####[facility] [address] [place], [address] Nucleated RBC (Bld) [#/Vol] 0.3 10*3/uL Normal 0-5 [facility] Comment on above: Performed By: #### L 500.2500, L100.0100 ####[facility] [address] [place], [address] Platelet mean volume (Bld) [Entitic vol] 9.5 fL Normal 6.2-12.0 [facility] Comment on above: Performed By: #### L 500.2500, L100.0100 ####[facility] [address] [place], [address] Platelets (Bld) [#/Vol] 338 10*3/uL Normal 150-450 [facility] Comment on above: Performed By: #### L 500.2500, L100.0100 ####[facility] [address] [place], [address] RBC (Bld) [#/Vol] 3.10 10*6/uL Low 4.2-5.4 [facility] Comment on above: Performed By: #### L 500.2500, L100.0100 ####[facility] [address] [place], [address] RDW SD 60.8 fl High 35.1-43.9 [facility] Comment on above: Performed By: #### L 500.2500, L100.0100 ####[facility] [address] [place], [address] WBC (Bld) [#/Vol] 6.4 10*3/uL Normal 4.4-11.[address] [facility] Comment on above: Performed By: #### L 500.2500, L100.0100 ####[facility] [address] [place], [address] Absolute Neut Normal 2.0-7.7 [facility] Comment on above: Result Comment: Canc elled via OM: Order cancelled - Patient discharged Performed By: #### L 500.2500, L100.0100 ####[facility] [address] [place], [address] HCT Normal 37-47 [facility] Comment on above: Result Comment: Canc elled via OM: Order cancelled - Patient discharged Performed By: #### L 500.2500, L100.0100 ####[facility] [address] [place], [address] HGB Normal 12.0-15.0 [facility] Comment on above: Result Comment: Canc elled via OM: Order cancelled - Patient discharged Performed By: #### L 500.2500, L100.0100 ####[facility] [address] [place], [address] MCH Normal 27.0-32.0 [facility] Comment on above: Result Comment: Canc elled via OM: Order cancelled - Patient discharged Performed By: #### L 500.2500, L100.0100 ####[facility] [address] [place], [address] MCHC Normal 32-36 [facility] Comment on above: Result Comment: Canc elled via OM: Order cancelled - Patient discharged Performed By: #### L 500.2500, L100.0100 ####[facility] [address] [place], [address] MCV Normal 81-99 [facility] Comment on above: Result Comment: Canc elled via OM: Order cancelled - Patient discharged Performed By: #### L 500.2500, L100.0100 ####[facility] [address] [place], [address] NEUT% Normal 47-70 [facility] Comment on above: Result Comment: Canc elled via OM: Order cancelled - Patient discharged Performed By: #### L 500.2500, L100.0100 ####[facility] [address] [place], [address] PLT Normal 150-450 [facility] Comment on above: Result Comment: Canc elled via OM: Order cancelled - Patient discharged Performed By: #### L 500.2500, L100.0100 ####[facility] [address] [place], [address] RBC Normal 4.2-5.4 [facility] Comment on above: Result Comment: Canc elled via OM: Order cancelled - Patient discharged Performed By: #### L 500.2500, L100.0100 ####[facility] [address] [place], [address] RDW CV Normal 11.6-14.6 [facility] Comment on above: Result Comment: Canc elled via OM: Order cancelled - Patient discharged Performed By: #### L 500.2500, L100.0100 ####[facility] [address] [place], [address] RDW SD Normal 35.1-43.9 [facility] Comment on above: Result Comment: Canc elled via OM: Order cancelled - Patient discharged Performed By: #### L 500.2500, L100.0100 ####[facility] [address] [place], [address] WBC Normal 4.4-11.0 [facility] Comment on above: Result Comment: Canc elled via OM: Order cancelled - Patient discharged Performed By: #### L 500.2500, L100.0100 ####[facility] [address] [place], [address] Prothrombin Time w/INRon INR Normal [facility] Comment on above: Result Comment: Canc elled via OM: Order cancelled - Patient discharged Performed By: #### L 300.3900 ####[facility] [address] [place], [address] PROTIME Normal 11.7-14.9 [facility] Comment on above: Result Comment: Canc elled via OM: Order cancelled - Patient discharged Performed By: #### L 300.3900 ####[facility] [address] [place], [address] Basic Metabolic Profile (BMP )on 03-19-2024 BUN/CRE 31.9 RATIO High 10-20 [facility] Comment on above: Performed By: #### L 100.0500, L500.2500 ####[facility] [address] [place], [address] CA,Total 8.8 mg/dL Normal 8.5-10.1 [facility] Comment on above: Performed By: #### L 100.0500, L500.2500 ####[facility] [address] [place], [address] Chloride [Moles/Vol] 105 mmol/L Normal 98-107 [facility] Comment on above: Performed By: #### L 100.0500, L500.2500 ####[facility] [address] [place], [address] CO2 [Moles/Vol] 26.0 mmol/L Normal 21.0-32.0 [facility] Comment on above: Performed By: #### L 100.0500, L500.2500 ####[facility] [address] [place], [address] Creatinine [Mass/Vol] 0.69 mg/dL Normal 0.55-1.02 [facility] Comment on above: Result Comment: The validity of the calculated GFR GFRAA in patients over70 years has not been determined. Clinical correlation isessential. Performed By: #### L 100.0500, L500.2500 ####[facility] [address] [place], [address] ECRCL 47.96 ml/min Normal [facility] Comment on above: Performed By: #### L 100.0500, L500.2500 ####[facility] [address] [place], [address] EST GFR - AA 104 mL/min Normal >60 [facility] Comment on above: Result Comment: Afri can [place] GFR Calc Performed By: #### L 100.0500, L500.2500 ####[facility] [address] [place], [address] GAP 9 Normal 5-15 [facility] Comment on above: Performed By: #### L 100.0500, L500.2500 ####[facility] [address] [place], [address] GFR/1.73 sq M.predicted among non-blacks MDRD (S/P/Bld) [Vol rate/Area] 86 mL/min/{1.73_m2} Normal >60 [facility] Comment on above: Result Comment: Non- GFR Calc Performed By: #### L 100.0500, L500.2500 ####[facility] [address] [place], [address] Glucose [Mass/Vol] 122 mg/dL High 74-[address] [facility] Comment on above: Result Comment: Fast ing Glucose result from 100 to 125 mg/dLsuggests IMPAIRED HOMEOSTASIS per A.D.A. criteria. Performed By: #### L 100.0500, L500.2500 ####[facility] [address] [place], [address] Potassium [Moles/Vol] 3.3 mmol/L Low 3.5-5.1 [facility] Comment on above: Performed By: #### L 100.0500, L500.2500 ####[facility] [address] [place], [address] Sodium [Moles/Vol] 140 mmol/L Normal 136-[address] [facility] Comment on above: Performed By: #### L 100.0500, L500.2500 ####[facility] [address] [place], [address] Urea nitrogen [Mass/Vol] 22 mg/dL High 7-18 [facility] Comment on above: Performed By: #### L 100.0500, L500.2500 ####[facility] [address] [place], [address] Bedside Glucoseon 03-19-2024 FINGERSTICK GLU 119 mg/dL High 74-106 [facility] Comment on above: Result Comment: LEVI GEMENT OF PATIENT CARE PER NURSING PROTOCOL Performed By: #### L 501.080 ####[facility] [address] [place], [address] FINGERSTICK GLU 149 mg/dL High 74-106 [facility] Comment on above: Result Comment: LEVI GEMENT OF PATIENT CARE PER NURSING PROTOCOL Performed By: #### L 501.080 ####[facility] [address] [place], [address] FINGERSTICK GLU 186 mg/dL High 74-106 [facility] Comment on above: Result Comment: LEVI GEMENT OF PATIENT CARE PER NURSING PROTOCOL Performed By: #### L 501.080 ####[facility] [address] [place], [address] FINGERSTICK GLU 128 mg/dL High 74-106 [facility] Comment on above: Result Comment: LEVI GEMENT OF PATIENT CARE PER NURSING PROTOCOL Performed By: #### L 501.080 ####[facility] [address] [place], [address] CBC-Complete Blood Cnt No Di ffon 03-19-2024 Erythrocyte distribution width (RBC) [Ratio] 18.4 % High 11.6-14.6 [facility] Comment on above: Performed By: #### L 100.0500, L500.2500 ####[facility] [address] [place], [address] Hematocrit (Bld) [Volume fraction] 28.3 % Low 37-47 [facility] Comment on above: Performed By: #### L 100.0500, L500.2500 ####[facility] [address] [place], [address] Hemoglobin (Bld) [Mass/Vol] 9.2 g/dL Low 12.0-15.0 [facility] Comment on above: Performed By: #### L 100.0500, L500.2500 ####[facility] [address] [place], [address] MCH (RBC) [Entitic mass] 30.2 pg Normal 27.0-32.0 [facility] Comment on above: Performed By: #### L 100.0500, L500.2500 ####[facility] [address] [place], [address] MCHC (RBC) [Mass/Vol] 32.5 g/dL Normal 32-36 [facility] Comment on above: Performed By: #### L 100.0500, L500.2500 ####[facility] [address] [place], [address] MCV (RBC) [Entitic vol] 92.8 fL Normal 81-[address] [facility] Comment on above: Performed By: #### L 100.0500, L500.2500 ####[facility] [address] [place], [address] Platelet mean volume (Bld) [Entitic vol] 10.1 fL Normal 6.2-12.0 [facility] Comment on above: Performed By: #### L 100.0500, L500.2500 ####[facility] [address] [place], [address] Platelets (Bld) [#/Vol] 284 10*3/uL Normal 150-450 [facility] Comment on above: Performed By: #### L 100.0500, L500.2500 ####[facility] [address] [place], [address] RBC (Bld) [#/Vol] 3.05 10*6/uL Low 4.2-5.4 [facility] Comment on above: Performed By: #### L 100.0500, L500.2500 ####[facility] [address] [place], [address] RDW SD 60.3 fl High 35.1-43.9 [facility] Comment on above: Performed By: #### L 100.0500, L500.2500 ####[facility] [address] [place], [address] WBC (Bld) [#/Vol] 6.2 10*3/uL Normal 4.4-11.[address] [facility] Comment on above: Performed By: #### L 100.0500, L500.2500 ####[facility] [address] [place], [address] Prothrombin Time w/INRon INR Coag (PPP) [Relative time] 2.6 {INR} Normal [facility] Comment on above: Performed By: #### L 300.3900 ####[facility] [address] [place], [address] PT Coag (PPP) [Time] 27.8 s High 11.7-14.9 [facility] Comment on above: Performed By: #### L 300.3900 ####[facility] [address] [place], [address] BRCon 03-18-2024 RC Normal [facility] Comment on above: Result Comment: [id number] AN RC TRANSFUSED 03/18/24 1720 Performed By: #### B RC, BTS ####[facility] [address] [place], [address] Bedside Glucoseon 03-18-2024 FINGERSTICK GLU 129 mg/dL High 74-106 [facility] Comment on above: Result Comment: LEVI GEMENT OF PATIENT CARE PER NURSING PROTOCOL Performed By: #### L 501.080 ####[facility] [address] [place], [address] FINGERSTICK GLU 129 mg/dL High 74-106 [facility] Comment on above: Result Comment: LEVI GEMENT OF PATIENT CARE PER NURSING PROTOCOL Performed By: #### L 501.080 ####[facility] [address] [place], [address] FINGERSTICK GLU 128 mg/dL High -106 [facility] Comment on above: Result Comment: LEVI GEMENT OF PATIENT CARE PER NURSING PROTOCOL Performed By: #### L 501.080 ####[facility] [address] [place], [address] FINGERSTICK GLU 132 mg/dL High [address] [place] [address] Comment on above: Result Comment: LEVI GEMENT OF PATIENT CARE PER NURSING PROTOCOL Performed By: #### L 501.080 ####[facility] [address] [place], [address] CBC W/Diff, Automatedon 03-02 Absolute Lymph 1.74 X10 3/uL Normal 0.83-4.51 [facility] Comment on above: Performed By: #### L 100.0100 ####[facility] [address] [place], [address] Absolute Neut 3.2 X10 3/uL Normal 2.0-7.7 [facility] Comment on above: Performed By: #### L 100.0100 ####[facility] [address] [place], [address] Basophils/100 WBC (Bld) 0.5 % Normal 0-[address] [facility] Comment on above: Performed By: #### L 100.0100 ####[facility] [address] [place], [address] Eosinophils/100 WBC (Bld) 2.6 % Normal 0-5 [facility] Comment on above: Performed By: #### L 100.0100 ####[facility] [address] [place], [address] Erythrocyte distribution width (RBC) [Ratio] 17.4 % High 11.6-14.6 [facility] Comment on above: Performed By: #### L 100.0100 ####[facility] [address] [place], [address] Hematocrit (Bld) [Volume fraction] 24.9 % Low 37-47 [facility] Comment on above: Performed By: #### L 100.0100 ####[facility] [address] [place], [address] Hemoglobin (Bld) [Mass/Vol] 7.7 g/dL Low 12.0-15.0 [facility] Comment on above: Performed By: #### L 100.0100 ####[facility] [address] [place], [address] IG% 0.500 Normal 0.0-0.9 [facility] Comment on above: Result Comment: IG% - Immature Granulocytes (promyelocytes, myelocytes andmetamyelocytes) > 1% indicates that a LEFT SHIFT is Present. Performed By: #### L 100.0100 ####[facility] [address] [place], [address] Lymphocytes/100 WBC (Bld) 30.0 % Normal 19-41 [facility] Comment on above: Performed By: #### L 100.0100 ####[facility] [address] [place], [address] MCH (RBC) [Entitic mass] 30.2 pg Normal 27.0-32.0 [facility] Comment on above: Performed By: #### L 100.0100 ####[facility] [address] [place], [address] MCHC (RBC) [Mass/Vol] 30.9 g/dL Low 32-36 [facility] Comment on above: Performed By: #### L 100.0100 ####[facility] [address] [place], [address] MCV (RBC) [Entitic vol] 97.6 fL Normal 81-[address] [facility] Comment on above: Performed By: #### L 100.0100 ####[facility] [address] [place], [address] Monocytes/100 WBC (Bld) 11.6 % High 0-[address] [facility] Comment on above: Performed By: #### L 100.0100 ####[facility] [address] [place], [address] Neutrophils/100 WBC (Bld) 54.8 % Normal 47-70 [facility] Comment on above: Performed By: #### L 100.0100 ####[facility] [address] [place], [address] Nucleated RBC (Bld) [#/Vol] 0.9 10*3/uL Normal 0-5 [facility] Comment on above: Performed By: #### L 100.0100 ####[facility] [address] [place], [address] Platelet mean volume (Bld) [Entitic vol] 10.5 fL Normal 6.2-12.0 [facility] Comment on above: Performed By: #### L 100.0100 ####[facility] [address] [place], [address] Platelets (Bld) [#/Vol] 229 10*3/uL Normal 150-450 [facility] Comment on above: Performed By: #### L 100.0100 ####[facility] [address] [place], [address] RBC (Bld) [#/Vol] 2.55 10*6/uL Low 4.2-5.4 [facility] Comment on above: Performed By: #### L 100.0100 ####[facility] [address] [place], [address] RDW SD 59.5 fl High 35.1-43.9 [facility] Comment on above: Performed By: #### L 100.0100 ####[facility] [address] [place], [address] WBC (Bld) [#/Vol] 5.8 10*3/uL Normal 4.4-11.[address] [facility] Comment on above: Performed By: #### L 100.0100 ####[facility] [address] [place], [address] Prothrombin Time w/INRon INR Coag (PPP) [Relative time] 1.9 {INR} Normal [facility] Comment on above: Performed By: #### L 300.3900 ####[facility] [address] [place], [address] PT Coag (PPP) [Time] 22.0 s High 11.7-14.9 [facility] Comment on above: Performed By: #### L 300.3900 ####[facility] [address] [place], [address] Type AND Screenon 03-18-2024 Ab SCREEN GEL Negative Normal [facility] Comment on above: Order Comment: CMV N EG? NNumber of units to transfuse: 1Reason for Ordering Blood: AcuteAre the blood/blood products to be transfused? YIs the patient having/had surgery? YDestiny Wolf Performed By: #### B SETH BTS ####[facility] [address] [place], [address] Bedside Glucoseon 03-17-2024 FINGERSTICK GLU 140 mg/dL High 74-106 [facility] Comment on above: Result Comment: LEVI GEMENT OF PATIENT CARE PER NURSING PROTOCOL Performed By: #### L 501.080 ####[facility] [address] [place], [address] FINGERSTICK GLU 108 mg/dL High 74-106 [facility] Comment on above: Result Comment: LEVI GEMENT OF PATIENT CARE PER NURSING PROTOCOL Performed By: #### L 501.080 ####[facility] [address] [place], [address] FINGERSTICK GLU 172 mg/dL High 74-106 [facility] Comment on above: Result Comment: LEVI GEMENT OF PATIENT CARE PER NURSING PROTOCOL Performed By: #### L 501.080 ####[facility] [address] [place], [address] FINGERSTICK GLU 142 mg/dL High 74-106 [facility] Comment on above: Result Comment: LEVI GEMENT OF PATIENT CARE PER NURSING PROTOCOL Performed By: #### L 501.080 ####[facility] [address] [place], [address] Partial Thromboplast Timeon 03-17-2024 aPTT Coag (Bld) [Time] 78.3 s High 24.1-36.2 [facility] Comment on above: Performed By: #### L 300.4310 ####[facility] [address] [place], [address] aPTT Coag (Bld) [Time] 85.5 s High 24.1-36.2 [facility] Comment on above: Order Comment: Comme nts: heparin drip, time sensitive Performed By: #### L 300.4310 ####[facility] [address] [place], [address] aPTT Coag (Bld) [Time] 82.6 s High 24.1-36.2 [facility] Comment on above: Order Comment: Comme nts: heparin drip, time sensitive Performed By: #### L 300.4310 ####[facility] [address] [place], [address] Prothrombin Time w/INRon INR Coag (PPP) [Relative time] 1.3 {INR} Normal [facility] Comment on above: Performed By: #### L 300.3900 ####[facility] [address] [place], [address] PT Coag (PPP) [Time] 16.2 s High 11.7-14.9 [facility] Comment on above: Performed By: #### L 300.3900 ####[facility] [address] [place], [address] Bedside Glucoseon 03-16-2024 FINGERSTICK GLU 144 mg/dL High [facility]106 [facility] Comment on above: Result Comment: LEVI GEMENT OF PATIENT CARE PER NURSING PROTOCOL Performed By: #### L 501.080 ####[facility] [address] [place], [address] FINGERSTICK GLU 140 mg/dL High 74-106 [facility] Comment on above: Result Comment: LEVI GEMENT OF PATIENT CARE PER NURSING PROTOCOL Performed By: #### L 501.080 ####[facility] [address] [place], [address] FINGERSTICK GLU 129 mg/dL High -106 [facility] Comment on above: Result Comment: LEVI GEMENT OF PATIENT CARE PER NURSING PROTOCOL Performed By: #### L 501.080 ####[facility] [address] [place], [address] FINGERSTICK GLU 131 mg/dL High 74-106 [facility] Comment on above: Result Comment: LEVI HYDE OF PATIENT CARE PER NURSING PROTOCOL Performed By: #### L 501.080 ####[facility] [address] [place], [address] Partial Thromboplast Timeon 03-16-2024 aPTT Coag (Bld) [Time] 79.3 s High 24.1-36.2 [facility] Comment on above: Performed By: #### L 300.4310 ####[facility] [address] [place], [address] Vancomycin, Trough Levelon 1 05-16-2023 VANCO, TROUGH 13.5 ug/mL Normal 5.0-15.0 [facility] Comment on above: Order Comment: 1400 Result Comment: VANC OMYCIN STANDARED DRUG THERAPY TROUGH LEVEL: 5.0 - 15.0 mg/LVANCOMYCIN HIGH INTENSITY THERAPY TROUGH LEVEL: 15.0 - 20.0 mg/LHigh Intensity therapy recommended for serious lifethreatening infections include:- Awjkarrytx-Fcgslckyztwo-Tiadeodos (Ventilator/Healtcare Associated)-SepsisPLEASE CONTACT PHARMACY SERVICES (#2445) FOR INTERPRETATIONOF RESULTS. Performed By: #### L 197.2008 ####[facility] [address] [place], [address] Basic Metabolic Profile (BMP )on 03-15-2024 BUN/CRE 20.1 RATIO High 10-20 [facility] Comment on above: Performed By: #### L 500.2500, L300.3900, L300.4310, L100.0100 ####[facility] [address] [place], [address] CA,Total 8.5 mg/dL Normal 8.5-10.1 [facility] Comment on above: Performed By: #### L 500.2500, L300.3900, L300.4310, L100.0100 ####[facility] [address] [place], [address] Chloride [Moles/Vol] 110 mmol/L High 98-107 [facility] Comment on above: Performed By: #### L 500.2500, L300.3900, L300.4310, L100.0100 ####[facility] [address] [place], [place], [address] CO2 [Moles/Vol] 26.0 mmol/L Normal 21.0-32.0 [facility] Comment on above: Performed By: #### L 500.2500, L300.3900, L300.4310, L100.0100 ####[facility] [address] [place], [address] Creatinine [Mass/Vol] 1.00 mg/dL Normal 0.55-1.02 [facility] Comment on above: Result Comment: The validity of the calculated GFR GFRAA in patients over70 years has not been determined. Clinical correlation isessential. Performed By: #### L 500.2500, L300.3900, L300.4310, L100.0100 ####[facility] [address] [place], [address] ECRCL 37.84 ml/min Normal [facility] Comment on above: Performed By: #### L 500.2500, L300.3900, L300.4310, L100.0100 ####[facility] [address] [place], [address] EST GFR - AA 68 mL/min Normal >60 [facility] Comment on above: Result Comment: Afri can Canadian GFR Calc Performed By: #### L 500.2500, L300.3900, L300.4310, L100.0100 ####[facility] [address] [place], [address] GAP 4 Low 5-15 [facility] Comment on above: Performed By: #### L 500.2500, L300.3900, L300.4310, L100.0100 ####[facility] [address] [place], [address] GFR/1.73 sq M.predicted among non-blacks MDRD (S/P/Bld) [Vol rate/Area] 56 mL/min/{1.73_m2} Low >60 [facility] Comment on above: Result Comment: Non- GFR Calc Performed By: #### L 500.2500, L300.3900, L300.4310, L100.0100 ####[facility] [address] [place], [address] Glucose [Mass/Vol] 134 mg/dL High 74-[address] [facility] Comment on above: Result Comment: Fast ing Glucose result greater than or equal to 126 mg/dLsuggests DIABETES MELLITUS per A.D.A. criteria. Performed By: #### L 500.2500, L300.3900, L300.4310, L100.0100 ####[facility] [address] [place], [address] Potassium [Moles/Vol] 3.4 mmol/L Low 3.5-5.1 [facility] Comment on above: Performed By: #### L 500.2500, L300.3900, L300.4310, L100.0100 ####[facility] [address] [place], [address] Sodium [Moles/Vol] 140 mmol/L Normal 136-[address] [facility] Comment on above: Performed By: #### L 500.2500, L300.3900, L300.4310, L100.0100 ####[facility] [address] [place], [address] Urea nitrogen [Mass/Vol] 20 mg/dL High 7-18 [facility] Comment on above: Performed By: #### L 500.2500, L300.3900, L300.4310, L100.0100 ####[facility] [address] [place], [address] Bedside Glucoseon 03-15-2024 FINGERSTICK GLU 137 mg/dL High 74-106 [facility] Comment on above: Result Comment: LEVI GEMENT OF PATIENT CARE PER NURSING PROTOCOL Performed By: #### L 501.080 ####[facility] [address] [place], [address] FINGERSTICK GLU 130 mg/dL High 74-106 [facility] Comment on above: Result Comment: LEVI GEMENT OF PATIENT CARE PER NURSING PROTOCOL Performed By: #### L 501.080 ####[facility] [address] [place], [address] FINGERSTICK GLU 116 mg/dL High -106 [facility] Comment on above: Result Comment: LEVI GEMENT OF PATIENT CARE PER NURSING PROTOCOL Performed By: #### L 501.080 ####[facility] [address] [place], [address] FINGERSTICK GLU 132 mg/dL High [facility]106 [facility] Comment on above: Result Comment: LEVI GEMENT OF PATIENT CARE PER NURSING PROTOCOL Performed By: #### L 501.080 ####[facility] [address] [place], [address] CBC W/Diff, Automatedon 03-02 Absolute Lymph 1.66 X10 3/uL Normal 0.83-4.51 [facility] Comment on above: Performed By: #### L 500.2500, L300.3900, L300.4310, L100.0100 ####[facility] [address] [place], [address] Absolute Neut 5.3 X10 3/uL Normal 2.0-7.7 [facility] Comment on above: Performed By: #### L 500.2500, L300.3900, L300.4310, L100.0100 ####[facility] [address] [place], [address] Basophils/100 WBC (Bld) 0.8 % Normal 0-[address] [facility] Comment on above: Performed By: #### L 500.2500, L300.3900, L300.4310, L100.0100 ####[facility] [address] [place], [address] Eosinophils/100 WBC (Bld) 1.4 % Normal 0-5 [facility] Comment on above: Performed By: #### L 500.2500, L300.3900, L300.4310, L100.0100 ####[facility] [address] [place], [address] Erythrocyte distribution width (RBC) [Ratio] 17.5 % High 11.6-14.6 [facility] Comment on above: Performed By: #### L 500.2500, L300.3900, L300.4310, L100.0100 ####[facility] [address] [place], [address] Hematocrit (Bld) [Volume fraction] 28.0 % Low 37-47 [facility] Comment on above: Performed By: #### L 500.2500, L300.3900, L300.4310, L100.0100 ####[facility] [address] [place], [address] Hemoglobin (Bld) [Mass/Vol] 9.2 g/dL Low 12.0-15.0 [facility] Comment on above: Performed By: #### L 500.2500, L300.3900, L300.4310, L100.0100 ####[facility] [address] [place], [address] IG% 0.600 Normal 0.0-0.9 [facility] Comment on above: Result Comment: IG% - Immature Granulocytes (promyelocytes, myelocytes andmetamyelocytes) > 1% indicates that a LEFT SHIFT is Present. Performed By: #### L 500.2500, L300.3900, L300.4310, L100.0100 ####[facility] [address] [place], [address] Lymphocytes/100 WBC (Bld) 21.1 % Normal 19-41 [facility] Comment on above: Performed By: #### L 500.2500, L300.3900, L300.4310, L100.0100 ####[facility] [address] [place], [address] MCH (RBC) [Entitic mass] 30.9 pg Normal 27.0-32.0 [facility] Comment on above: Performed By: #### L 500.2500, L300.3900, L300.4310, L100.0100 ####[facility] [address] [place], [address] MCHC (RBC) [Mass/Vol] 32.9 g/dL Normal 32-36 [facility] Comment on above: Performed By: #### L 500.2500, L300.3900, L300.4310, L100.0100 ####[facility] [address] [place], [address] MCV (RBC) [Entitic vol] 94.0 fL Normal 81-99 [facility] Comment on above: Performed By: #### L 500.2500, L300.3900, L300.4310, L100.0100 ####[facility] [address] [place], [address] Monocytes/100 WBC (Bld) 8.9 % Normal 0-[address] [facility] Comment on above: Performed By: #### L 500.2500, L300.3900, L300.4310, L100.0100 ####[facility] [address] [place], [address] Neutrophils/100 WBC (Bld) 67.2 % Normal 47-70 [facility] Comment on above: Performed By: #### L 500.2500, L300.3900, L300.4310, L100.0100 ####[facility] [address] [place], [address] Nucleated RBC (Bld) [#/Vol] 0.3 10*3/uL Normal 0-5 [facility] Comment on above: Performed By: #### L 500.2500, L300.3900, L300.4310, L100.0100 ####[facility] [address] [place], [address] Platelet mean volume (Bld) [Entitic vol] 10.1 fL Normal 6.2-12.0 [facility] Comment on above: Performed By: #### L 500.2500, L300.3900, L300.4310, L100.0100 ####[facility] [address] [place], [address] Platelets (Bld) [#/Vol] 165 10*3/uL Normal 150-450 [facility] Comment on above: Performed By: #### L 500.2500, L300.3900, L300.4310, L100.0100 ####[facility] [address] [place], [address] RBC (Bld) [#/Vol] 2.98 10*6/uL Low 4.2-5.4 [facility] Comment on above: Performed By: #### L 500.2500, L300.3900, L300.4310, L100.0100 ####[facility] [address] [place], [address] RDW SD 59.0 fl High 35.1-43.9 [facility] Comment on above: Performed By: #### L 500.2500, L300.3900, L300.4310, L100.0100 ####[facility] [address] [place], [address] WBC (Bld) [#/Vol] 7.9 10*3/uL Normal 4.4-11.[address] [facility] Comment on above: Performed By: #### L 500.2500, L300.3900, L300.4310, L100.0100 ####[facility] [address] [place], [address] Decalcification bone/plaqueo n 03-15-2024 Decalcification bone/plaque Normal [facility] Comment on above: Performed By: #### P DEC ####[facility] [address] [place], [address] Foot min 3 Viewson 4 Foot min 3 Views Normal [facility] MR/POSTOP.ANEon 03-15-2024 MR/POSTOP.ANE Normal [facility] Operative Reporton 4 Operative Report Normal [facility] Partial Thromboplast Timeon 03-15-2024 aPTT Coag (Bld) [Time] 29.4 s Normal 24.1-36.2 [facility] Comment on above: Performed By: #### L 500.2500, L300.3900, L300.4310, L100.0100 ####[facility] [address] [place], [address] Prothrombin Time w/INRon INR Coag (PPP) [Relative time] 1.1 {INR} Normal [facility] Comment on above: Performed By: #### L 500.2500, L300.3900, L300.4310, L100.0100 ####[facility] [address] [place], [address] PT Coag (PPP) [Time] 14.3 s Normal 11.7-14.9 [facility] Comment on above: Performed By: #### L 500.2500, L300.3900, L300.4310, L100.0100 ####[facility] [address] [place], [address] XR Chest PA and Lateralon IMPRESSION: Left upper lobe nodule, seen on patient's CT chest dated 10/24/2023. A few hazy opacities overlying the left mid to lower lung zones, raising concern for infection/pneumonia. Please clinically correlate. Mild cardiomegaly. Preschool Aide: [employer] Transcribe Date/Time: Dec 12 2023 10:20A Dictated [...] mild degenerative changes. DIVISION OF RADIOLOGY Provider, Livan Gracia - 12/12/2023 * * *Final Report* * [...] for infection/pneumonia. Please clinically correlate. Mild cardiomegaly. Preschool Aide: JEN Transcribe Date/Time: Dec 12 2023 10:20A Dictated by : JOSÉ MIGUEL MEEKS MD This examination was interpreted and the report reviewed and electronically signed by: JOSÉ MIGUEL MEEKS MD on Dec 12 2023 10:22AM [facility] Radiology Study observation (narrative) [facility] XR Chest PA and LateralOrder ed By: [facility] Provider on 12-12-[address] [facility] US Abdomen RUQon 11-30-2023 IMPRESSION: Cholelithiasis. Preschool Aide: JEN Transcribe Date/Time: Nov 30 2023 9:57A [...] hydronephrosis. Ascites: None. DIVISION OF RADIOLOGY Provider, Livan Pastrana [facility] - 11/30/2023 * * *Final Report* [...] No hydronephrosis. Ascites: None. IMPRESSION IMPRESSION: Cholelithiasis. Preschool Aide: JEN Transcribe Date/Time: Nov 30 2023 9:57A Dictated by : JONNIE VILLEGAS MD This examination was interpreted and the report reviewed and electronically signed by: JONNIE VILLEGAS MD on Nov 30 2023 10:05AM EST [facility] Radiology Study observation (narrative) [facility] US Abdomen RUQOrdered By: Noelle rich Provider on 11-30-[address] [facility] STRESS ECHO TREADMILLon 10-30 Stress ECG Report: Stress Echo [facility] Date of service: 11/14/2023 1:48:28 PM ADMINISTRATIVE ASSISTANT Ordering physician: ANASTASIIA COLÓN retail selling specialist: Santana Hernandez Interpreting physician: Eugene Christianson [...] 170/94 mmHg. The double product achieved was [address]. Medications: Last Used METOPROLOL 1 Days AMLODIPINE 1 Days Resting ECG: Atrial Fib/Flutter and Rare PVCs (<3/Min) Symptoms at rest: No symptoms Exercise Protocol: Man +-----+ +--- ------+ +---+ ---+---+----+---+----+ Speed (MPH) Grade (%) Time (min) HR SYS RADHA RPE SOB METS +-----+ +--- ------+ +---+ ---+---+----+---+----+ Final 1.7 10.0 3.00 137 170 94 13.0 5.0 4.2 +-----+ +--- ------+ +---+ ---+---+----+---+----+ +-----+ --+ Arrhythmias +-----+ --+ Final Rare PVC (<3/min) +-----+ --+ Recovery Table: +------+---+---+---+ Stage HR SYS RADHA [...] (HRR): 24 bpm Rate Pressure Product (RPP): 52042 Travis Treadmill Score: 10.0 Stress Exercise Observations: [...] equation for determining estimated MET values for [facility] stress tests changed. Comparison of test results before and after that date may show a change in estimated MET values for peak/max exercise despite a test duration that is similar in length. The validity of the new FRIEND equation for exercise METS is endorsed by the [employer]. Bobby P, Jennifer LA, Madison R, Rojas J, Chey J. New Generalized Equation for Predicting Maximal Oxygen Uptake (from the Fitness Registry and the Importance of Exercise National Database). The [place] Journal of Cardiology. 2017;120(4):688-692). Final ------ Echocardiography Report: Stress Echo [facility] Date of service: 11/14/2023 1:48:28 PM ADMINISTRATIVE ASSISTANT Ordering physician: ANASTASIIA COLÓN Indication: Chest Pain Technologist: Perrna Krause [facility] Interpreting physician: Eugene Christianson MD PATIENT: [...] content not included)... [facility] CT CHEST WO IVCONon 11-23-[address] [facility] No Panel Informationon 10-[address] [facility] DXA-AXIAL SKELETONon 023 LOWEST T-SCORE -1.[address] [facility] CBC W Auto Differential pane l (Bld)on 07-01-2022 Basophils (Bld) [#/Vol] 0.06 10*3/uL <0.11 k/uL [facility] Basophils/100 WBC (Bld) 1.0 % C [facility] Differential cell count method Nom (Bld) Auto [facility] Eosinophils (Bld) [#/Vol] 0.13 10*3/uL <0.46 k/uL [facility] Eosinophils/100 WBC (Bld) 2.1 % [facility] Erythrocyte distribution width (RBC) [Ratio] 14.2 % 11.5 - 15.0 % [facility] Hematocrit (Bld) [Volume fraction] 39.7 % 36.0 - 46.0 % [facility] Hemoglobin (Bld) [Mass/Vol] 13.3 g/dL 11.5 - 15.5 g/dL [facility] Immature granulocytes (Bld) [#/Vol] <0.10 k/uL [facility] Immature granulocytes/100 WBC (Bld) 0.3 % [facility] Lymphocytes (Bld) [#/Vol] 1.80 10*3/uL 1.00 - 4.00 k/uL [facility] Lymphocytes/100 WBC (Bld) 28.7 % [facility] MCH (RBC) [Entitic mass] 33.1 pg 26. 0 - 34.[address] [facility] MCHC (RBC) [Mass/Vol] 33.5 g/dL 30.5 - 36.0 g/dL [facility] MCV (RBC) [Entitic vol] 98.8 fL 80.0 - 100.[address] [facility] Monocytes (Bld) [#/Vol] 0.64 10*3/uL <0.87 k/uL [facility] Monocytes/100 WBC (Bld) 10.2 % [facility] Neutrophils (Bld) [#/Vol] 3.62 10*3/uL 1.45 - 7.50 k/uL [facility] Neutrophils/100 WBC (Bld) 57.7 % [facility] Nucleated RBC (Bld) [#/Vol] 0.03 10*3/uL High <0.01 k/uL [facility] Nucleated RBC/100 WBC (Bld) [Ratio] 0.5 /[address] [facility] Platelet mean volume (Bld) [Entitic vol] 10.7 fL 9.0 - 12.[address] [facility] Platelets (Bld) [#/Vol] 216 10*3/uL 150 - 400 k/uL [facility] RBC (Bld) [#/Vol] 4.02 10*6/uL 3.90 - 5.2 0 m/uL [facility] WBC (Bld) [#/Vol] 6.27 10*3/uL 3.70 - 11. 00 k/uL [facility] Comprehensive metabolic 2000 panelon 07-01-2022 Albumin [Mass/Vol] 4.1 g/dL 3.9 - 4.9 g/dL [facility] ALP [Catalytic activity/Vol] 41 U/L 34 - 123 U/L [facility] ALT [Catalytic activity/Vol] 30 U/L 7 - 38 U/L [facility] Anion gap [Moles/Vol] 10 mmol/L 9 - 18 mmol/L [facility] AST [Catalytic activity/Vol] 23 U/L 13 - 35 U/L [facility] Bilirubin [Mass/Vol] 0.5 mg/dL 0.2 - 1 .3 mg/dL [facility] Calcium [Mass/Vol] 9.7 mg/dL 8.5 - 10. 2 mg/dL [facility] Chloride [Moles/Vol] 100 mmol/L 97 - 10 5 mmol/L [facility] CO2 [Moles/Vol] 27 mmol/L 22 - 30 mmol/L [facility] Creatinine [Mass/Vol] 1.08 mg/dL High 0.58 - 0.96 mg/dL [facility] Estimated Glomerular Filtration Rate 51 mL/min/1.73m Low >=60 mL/min/1.73m [facility] Glucose [Mass/Vol] 192 mg/dL High 74 - 99 mg/dL [facility] Potassium [Moles/Vol] 4.0 mmol/L 3.7 - 5.1 mmol/L [facility] Protein [Mass/Vol] 7.0 g/dL 6.3 - 8.0 g/dL [facility] Sodium [Moles/Vol] 137 mmol/L 136 - 144 mmol/L [facility] Urea nitrogen [Mass/Vol] 23 mg/dL High 7 - 21 mg/d L [facility] HbA1c (Bld)on 07-01-2022 Average glucose Estimated from glycated hemoglobin (Bld) [Mass/Vol] 171 mg/dL [facility] HbA1c (Bld) [Mass fraction] 7.6 % High 4.3 - 5.6 % [facility] LIPID PANEL, NONFASTINGon Cholesterol [Mass/Vol] 142 mg/dL <200 mg/dL [facility] HDL Cholesterol, Nonfasting 21 mg/dL Low >39 mg/dL [facility] LDL Cholesterol, Nonfasting [facility] LDL/HDL Ratio, Nonfasting [facility] Non HDL Cholesterol, Nonfasting 121 mg/dL <130 mg/dL [facility] Total Chol/HDL Ratio, Nonfasting 6.76 mg/dL High <5.10 mg/dL [facility] Triglycerides, Nonfasting 459 mg/dL High <150 mg/dL [facility] VLDL Cholesterol, Nonfasting [facility] TSH BLDon 07-01-2022 TSH Qn 2.450 m[IU]/L 0.270 - 4.200 mIU/L [facility] Vital Signs Date Time Vital Sign Value Performing Clinician Zandra kendall 02-05-2025 13:12-0400 Body temperature 97.6 [degF] Dr. Kierra Santiago MD Work Phone: 6(487)081-420070 [place] [address] 02-05-2025 13:12-0400 Body weight 71.[address] Kierra Santiago MD Work Phone: 9(674)175-887270 [place] [address] 02-05-2025 13:12-0400 Diastolic blood pressure 64 mm[Hg] Dr. Kierra Santiago MD Work Phone: 1(399)021-521070 [place] [address] 02-05-2025 13:12-0400 Heart rate 75 /min Dr. Kierra Santiago MD Work Phone: 2(267)524-735870 [place] [address] 02-05-2025 13:12-0400 Respiratory rate 16 /min Dr. Kierra Santiago MD Work Phone: 3(066)221-336270 [place] [address] 02-05-2025 13:12-0400 SaO2% (BldA) [Mass fraction] 95 % Dr. Kierra Santiago MD Work Phone: 9(617)687-452370 [place] [address] 02-05-2025 13:12-0400 Systolic blood pressure 119 mm[Hg] Dr. Kierra Santiago MD Work Phone: 0(553)110-270642 [place] [address] 01-23-2025 12:00-0400 Diastolic blood pressure 42 mm[Hg] Dr. Kierra Santiago MD Work Phone: 1(549)376-058342 [place] [address] 01-23-2025 12:00-0400 Heart rate 56 /min Dr. Kierra Santiago MD Work Phone: 9(664)917-959042 [place] [address] 01-23-2025 12:00-0400 Respiratory rate 18 /min Dr. Kierra Santiago MD Work Phone: 4(789)608-676242 [place] [address] 01-23-2025 12:00-0400 SaO2% (BldA) [Mass fraction] 100 % Dr. Kierra Santiago MD Work Phone: 3(518)628-087842 [place] [address] 01-23-2025 12:00-0400 Systolic blood pressure 117 mm[Hg] Dr. Kierra Santaigo MD Work Phone: 8(438)582-333842 [place] [address] 01-23-2025 07:25-0400 Inhaled oxygen flow rate 2 L/min Dr. Kierra Santiago MD Work Phone: 0(201)283-688442 [place] [address] 01-23-2025 05:09-0400 Body mass index (BMI) [Ratio] 27.6 kg/m2 Dr. Kierra Santiago MD Work Phone: 8(207)554-572642 [place] [address] 01-23-2025 05:09-0400 Body weight 70.[address] Kierra Santiago MD Work Phone: 8(059)992-121742 [place] [address] 01-22-2025 14:10-0400 Body height 160.[address] Kierra Santiago MD Work Phone: 3(884)418-082342 [place] [address] 01-22-2025 12:30-0400 Body temperature 97.8 [degF] Dr. Kierra Santiago MD Work Phone: 1(246)770-637442 [place] [address] 12-13-2024 08:44-0400 Body height 160.[address] Kierra Santiago MD Work Phone: 6(366)926-707942 [place] [address] 12-13-2024 08:44-0400 Body mass index (BMI) [Ratio] 26.5 kg/m2 Dr. Kierra Santiago MD Work Phone: 8(373)599-757742 [place] [address] 12-13-2024 08:44-0400 Body weight 68.[address] Kierra Santiago MD Work Phone: 4(629)339-391642 [place] [address] 12-13-2024 08:44-0400 Diastolic blood pressure 77 mm[Hg] Dr. Kierra Santiago MD Work Phone: 2(906)523-780242 [place] [address] 12-13-2024 08:44-0400 Heart rate 70 /min Dr. Kierra Santiago MD Work Phone: 5(213)490-729942 [place] [address] 12-13-2024 08:44-0400 Respiratory rate 16 /min Dr. Kierra Santiago MD Work Phone: 6(522)831-984342 [place] [address] 12-13-2024 08:44-0400 Systolic blood pressure 143 mm[Hg] Dr. Kierra Santiago MD Work Phone: 6(008)522-963042 [place] [address] 10-31-2024 14:04-0400 Body temperature 98 [degF] Dr. Kierra Santiago MD Work Phone: 5(369)721-080742 [place] [address] 10-31-2024 14:04-0400 Body weight 68.[address] Kierra Santiago MD Work Phone: 2(605)171-724542 [place] [address] 10-31-2024 14:04-0400 Diastolic blood pressure 58 mm[Hg] Dr. Kierra Santiago MD Work Phone: 5(130)175-808042 [place] [address] 10-31-2024 14:04-0400 Heart rate 68 /min Dr. Kierra Santiago MD Work Phone: 8(487)840-333642 [place] [address] 10-31-2024 14:04-0400 Respiratory rate 16 /min Dr. Kierra Santiago MD Work Phone: 7(853)442-288542 [place] [address] 10-31-2024 14:04-0400 SaO2% (BldA) [Mass fraction] 99 % Dr. Kierra Santiago MD Work Phone: 0(659)932-490142 [place] [address] 10-31-2024 14:04-0400 Systolic blood pressure 111 mm[Hg] Dr. Kierra Santiago MD Work Phone: [facility] 10-24-2024 11:01-0400 Body height 158.8 cm Kierra Santiago MD Work Phone: [facility] 10-24-2024 11:01-0400 Body mass index (BMI) [Ratio] 26.7 kg/m2 Kierra Santiago MD Work Phone: [facility] 10-24-2024 11:01-0400 Body weight 67.3 kg Kierra Santiago MD Work Phone: [facility] 10-24-2024 11:01-0400 Diastolic blood pressure 60 mm[Hg] Kierra Santiago MD Work Phone: [facility] 10-24-2024 11:01-0400 Heart rate 72 /min Kierra Santiago MD Work Phone: [facility] 10-24-2024 11:01-0400 Systolic blood pressure 120 mm[Hg] Kierra Santiago MD Work Phone: [facility] 10-10-2024 15:31-0400 Heart rate 71 /min Dr. Kierra Santiago MD Work Phone: [facility] 10-10-2024 14:55-0400 Body temperature 99.5 [degF] Dr. Kierra Santiago MD Work Phone: [facility] 10-10-2024 14:55-0400 Diastolic blood pressure 49 mm[Hg] Dr. Kierra Santiago MD Work Phone: [facility] 10-10-2024 14:55-0400 Respiratory rate 16 /min Dr. Kierra Santiago MD Work Phone: [facility] 10-10-2024 14:55-0400 SaO2% (BldA) [Mass fraction] 92 % Dr. Kierra Santiago MD Work Phone: [facility] 10-10-2024 14:55-0400 Systolic blood pressure 130 mm[Hg] Dr. Kierra Santiago MD Work Phone: 6(590)782-642542 [place] [address] 10-10-2024 09:21-0400 Inhaled oxygen flow rate 2 L/min Dr. Kierra Santiago MD Work Phone: 4(047)931-662742 [place] [address] 10-10-2024 02:35-0400 Body mass index (BMI) [Ratio] 26.8 kg/m2 Dr. Kierra Santiago MD Work Phone: 2(360)017-683842 [place] [address] 10-10-2024 02:35-0400 Body weight 68.[address] Kierra Santiago MD Work Phone: 0(977)607-036942 [place] [address] 10-09-2024 10:20-0400 Body height 160.[address] Kierra Santiago MD Work Phone: 4(875)654-722742 [place] [address] 10-08-2024 14:27-0400 Body height 160.[address] Kierra Santiago MD Work Phone: 0(661)699-618642 [place] [address] 10-08-2024 14:27-0400 Body weight 69.[address] Kierra Santiago MD Work Phone: 9(764)955-553842 [place] [address] 10-08-2024 12:00-0400 Body temperature 98.1 [degF] Dr. Kierra Santiago MD Work Phone: 7(048)346-577742 [place] [address] 10-08-2024 12:00-0400 Diastolic blood pressure 57 mm[Hg] Dr. Kierra Santiago MD Work Phone: 7(643)004-608042 [place] [address] 10-08-2024 12:00-0400 Heart rate 60 /min Dr. Kierra Santiago MD Work Phone: 6(632)220-065942 [place] [address] 10-08-2024 12:00-0400 Inhaled oxygen flow rate 3 L/min Dr. Kierra Santiago MD Work Phone: 0(748)320-766142 [place] [address] 10-08-2024 12:00-0400 Respiratory rate 18 /min Dr. Kierra Santiago MD Work Phone: 8(859)225-800542 [place] [address] 10-08-2024 12:00-0400 SaO2% (BldA) [Mass fraction] 97 % Dr. Kierra Santiago MD Work Phone: 9(423)268-485842 [place] [address] 10-08-2024 12:00-0400 Systolic blood pressure 127 mm[Hg] Dr. Kierra Santiago MD Work Phone: 4(883)256-989942 [place] [address] 10-08-2024 05:58-0400 Body mass index (BMI) [Ratio] 27.2 kg/m2 Dr. Kierra Santiago MD Work Phone: 6(478)742-759242 [place] [address] 10-08-2024 00:40-0400 Body temperature 98.8 [degF] Dr. Kierra Santiago MD Work Phone: 1(077)213-847142 [place] [address] 10-08-2024 00:40-0400 Diastolic blood pressure 43 mm[Hg] Dr. Kierra Santiago MD Work Phone: 3(476)562-481742 [place] [address] 10-08-2024 00:40-0400 Heart rate 53 /min Dr. Kierra Santiago MD Work Phone: 8(379)801-639942 [place] [address] 10-08-2024 00:40-0400 Respiratory rate 13 /min Dr. Kierra Santiago MD Work Phone: 9(943)644-640242 [place] [address] 10-08-2024 00:40-0400 SaO2% (BldA) [Mass fraction] 93 % Dr. Kierra Santiago MD Work Phone: 2(124)670-046142 [place] [address] 10-08-2024 00:40-0400 Systolic blood pressure 113 mm[Hg] Dr. Kierra Santiago MD Work Phone: 3(439)512-354342 [place] [address] 10-08-2024 00:00-0400 Inhaled oxygen flow rate 2 L/min Dr. Kierra Santiago MD Work Phone: 3(448)872-553942 [place] [address] 10-07-2024 21:35-0400 Body mass index (BMI) [Ratio] 27.5 kg/m2 Dr. Kierra Santiago MD Work Phone: 4(568)720-194842 [place] [address] 10-07-2024 21:35-0400 Body weight 70.[address] Kierra Santiago MD Work Phone: 5(271)689-464670 [place] [address] 10-07-2024 21:21-0400 Body height 160.[address] Kierra Santiago MD Work Phone: 7(017)093-697842 [place] [address] 08-22-2024 13:24-0400 Body temperature 96.9 [degF] Dr. Kierra Santiago MD Work Phone: 2(446)370-415042 [place] [address] 08-22-2024 13:24-0400 Diastolic blood pressure 63 mm[Hg] Dr. Kierra Santiago MD Work Phone: 7(425)353-374142 [place] [address] 08-22-2024 13:24-0400 Heart rate 50 /min Dr. Keirra Santiago MD Work Phone: 9(616)340-513142 [place] [address] 08-22-2024 13:24-0400 Respiratory rate 16 /min Dr. Kierra Santiago MD Work Phone: 6(456)593-511242 [place] [address] 08-22-2024 13:24-0400 SaO2% (BldA) [Mass fraction] 99 % Dr. Kierra Santiago MD Work Phone: 0(423)699-617942 [place] [address] 08-22-2024 13:24-0400 Systolic blood pressure 175 mm[Hg] Dr. Kierra Santiago MD Work Phone: 8(450)850-288842 [place] [address] 08-22-2024 12:11-0400 Body height 160.[address] Kierra Santiago MD Work Phone: 8(793)460-035542 [place] [address] 08-22-2024 12:11-0400 Body mass index (BMI) [Ratio] 26.2 kg/m2 Dr. Kierra Santiago MD Work Phone: 8(170)921-617442 [place] [address] 08-22-2024 12:11-0400 Body weight 67.[address] Kierra Santiago MD Work Phone: 1(913)886-827142 [place] [address] 07-17-2024 10:06-0400 Body mass index (BMI) [Ratio] 25.4 kg/m2 Anastasiia Colón APRN.CNS Work Phone: 3(068)379-761096 [place] [address] 07-17-2024 10:06-0400 Body weight 64 kg Anastasiia Colón SUPERVISOR [employer].STUDENT EDUCATION SPECIALIST Work Phone: [facility] 07-17-2024 10:06-0400 Diastolic blood pressure 65 mm[Hg] Anastasiia Colón SUPERVISOR [employer]ILITY.STUDENT EDUCATION SPECIALIST Work Phone: [facility] 07-17-2024 10:06-0400 Heart rate 60 /min Anastasiia Colón SUPERVISOR [employer]ILITY.STUDENT EDUCATION SPECIALIST Work Phone: [facility] 07-17-2024 10:06-0400 Respiratory rate 16 /min Anastasiia Colón SUPERVISOR [employer]ILITY.STUDENT EDUCATION SPECIALIST Work Phone: [facility] 07-17-2024 10:06-0400 Systolic blood pressure 131 mm[Hg] Anastasiia Colón SUPERVISOR [employer]ILITY.STUDENT EDUCATION SPECIALIST Work Phone: [facility] 06-20-2024 09:55-0500 Body height 160.[address] Kierra Santiago MD Work Phone: [facility] 06-20-2024 09:55-0500 Body mass index (BMI) [Ratio] 24.7 kg/m2 Dr. Kierra Santiago MD Work Phone: 4(299)190-125270 [place] [address] 06-20-2024 09:55-0500 Body weight 63.[address] Kierra Santiago MD Work Phone: [facility] 06-20-2024 09:55-0500 Diastolic blood pressure 63 mm[Hg] Dr. Kierra Santiago MD Work Phone: [facility] 06-20-2024 09:55-0500 Heart rate 62 /min Dr. Kierra Santiago MD Work Phone: [facility] 06-20-2024 09:55-0500 Respiratory rate 18 /min Dr. Kierra Santiago MD Work Phone: [facility] 06-20-2024 09:55-0500 SaO2% (BldA) [Mass fraction] 98 % Dr. Kierra Santiago MD Work Phone: [facility] 06-20-2024 09:55-0500 Systolic blood pressure 143 mm[Hg] Dr. Kierra Santiago MD Work Phone: [facility] 06-12-2024 08:53-0500 Body temperature 97.4 [degF] Dr. Kierra Santiago MD Work Phone: [facility] 06-12-2024 08:53-0500 Body weight 64.[address] Kierra Santiago MD Work Phone: 8(295)439-274170 [place] [address] 06-12-2024 08:53-0500 Diastolic blood pressure 54 mm[Hg] Dr. Kierra Santiago MD Work Phone: 9(174)977-299257 [address] 06-12-2024 08:53-0500 Heart rate 57 /min Dr. Kierra Santiago MD Work Phone: 8(174)511-618457 [address] 06-12-2024 08:53-0500 Respiratory rate 14 /min Dr. Kierra Santiago MD Work Phone: 6(673)276-899370 [place] [address] 06-12-2024 08:53-0500 SaO2% (BldA) [Mass fraction] 97 % Dr. Kierra Santiago MD Work Phone: [facility] 06-12-2024 08:53-0500 Systolic blood pressure 128 mm[Hg] Dr. Kierra Santiago MD Work Phone: [facility] 06-04-2024 11:34-0500 Body height 158.8 cm Terrence Jane MD Work Phone: [facility] 06-04-2024 11:34-0500 Body mass index (BMI) [Ratio] 25.74 kg/m2 Terrence Jane MD Work Phone: [facility] 06-04-2024 11:34-0500 Body weight 64.86 kg Terrence Jane MD Work Phone: [facility] 06-04-2024 11:34-0500 Diastolic blood pressure 64 mm[Hg] Terrence Jane MD Work Phone: [facility] 06-04-2024 11:34-0500 Heart rate 63 /min Terrence Jane MD Work Phone: [facility] 06-04-2024 11:34-0500 Respiratory rate 12 /min Terrence Jane MD Work Phone: [facility] 06-04-2024 11:34-0500 SaO2% (BldA) [Mass fraction] 97 % Terrence Jane MD Work Phone: [facility] 06-04-2024 11:34-0500 Systolic blood pressure 142 mm[Hg] Terrence Jane MD Work Phone: [facility] 05-14-2024 13:32-0500 Body mass index (BMI) [Ratio] 25.7 kg/m2 Dr. Kierra Santiago MD Work Phone: [facility] 05-14-2024 13:32-0500 Body weight 65.[address] Kierra Santiago MD Work Phone: [facility] 05-14-2024 13:32-0500 Diastolic blood pressure 66 mm[Hg] Dr. Kierra Santiago MD Work Phone: [facility] 05-14-2024 13:32-0500 Heart rate 56 /min Dr. Kierra Sanitago MD Work Phone: [facility] 05-14-2024 13:32-0500 Respiratory rate 18 /min Dr. Kierra Santiago MD Work Phone: [facility] 05-14-2024 13:32-0500 SaO2% (BldA) [Mass fraction] 97 % Dr. Kierra Santiago MD Work Phone: [facility] 05-14-2024 13:32-0500 Systolic blood pressure 146 mm[Hg] Dr. Kierra Santiago MD Work Phone: [facility] 05-08-2024 08:43-0500 Diastolic blood pressure 54 mm[Hg] Mary Kay Delgado DO Work Phone: [facility] 05-08-2024 08:43-0500 Heart rate 55 /min Mary Kay Delgado DO Work Phone: [facility] 05-08-2024 08:43-0500 SaO2% (BldA) [Mass fraction] 98 % Mary Kay Delgado DO Work Phone: [facility] 05-08-2024 08:43-0500 Systolic blood pressure 117 mm[Hg] Mary Kay Delgado DO Work Phone: [facility] 04-23-2024 14:34-0500 Body height 158.8 cm Terrence Jane MD Work Phone: [facility] 04-23-2024 14:34-0500 Body mass index (BMI) [Ratio] 25.74 kg/m2 Terrence Jane MD Work Phone: [facility] 04-23-2024 14:34-0500 Body weight 64.86 kg Terrence Jane MD Work Phone: [facility] 04-23-2024 14:34-0500 Diastolic blood pressure 56 mm[Hg] Terrence Jane MD Work Phone: [facility] 04-23-2024 14:34-0500 Heart rate 69 /min Terrence Jane MD Work Phone: [facility] 04-23-2024 14:34-0500 Respiratory rate 12 /min Terrence Jane MD Work Phone: [facility] 04-23-2024 14:34-0500 SaO2% (BldA) [Mass fraction] 100 % Terrence Jane MD Work Phone: [facility] 04-23-2024 14:34-0500 Systolic blood pressure 178 mm[Hg] Terrence Jane MD Work Phone: [facility] 04-17-2024 12:11-0500 Heart rate 61 /min Anastasiia Colón JONNY Work Phone: [facility] 04-08-2024 10:49-0500 Body temperature 98.1 [degF] Dr. Kierra Santaigo MD Work Phone: 3(914)985-032642 [place] [address] 04-08-2024 10:49-0500 Diastolic blood pressure 67 mm[Hg] Dr. Kierra Santiago MD Work Phone: 0(702)368-010342 [place] [address] 04-08-2024 10:49-0500 Heart rate 70 /min Dr. Kierra Santiago MD Work Phone: 1(539)206-835742 [place] [address] 04-08-2024 10:49-0500 Respiratory rate 18 /min Dr. Kierra Santiago MD Work Phone: 9(268)272-775942 [place] [address] 04-08-2024 10:49-0500 SaO2% (BldA) [Mass fraction] 96 % Dr. Kierra Santiago MD Work Phone: 7(948)581-163342 [place] [address] 04-08-2024 10:49-0500 Systolic blood pressure 132 mm[Hg] Dr. Kierra Santiago MD Work Phone: 0(583)147-776242 [place] [address] 04-08-2024 06:00-0500 Body mass index (BMI) [Ratio] 24.5 kg/m2 Dr. Kierra Santiago MD Work Phone: 1(362)672-571842 [place] [address] 04-08-2024 06:00-0500 Body weight 62.[address] Kierra Santiago MD Work Phone: 2(535)074-937242 [place] [address] 04-04-2024 10:00-0500 Body temperature 98.3 [degF] Dr. Kierra Santiago MD Work Phone: 7(081)165-208342 [place] [address] 04-04-2024 10:00-0500 Diastolic blood pressure 62 mm[Hg] Dr. Kierra Santiago MD Work Phone: 4(111)055-440442 [place] [address] 04-04-2024 10:00-0500 Heart rate 62 /min Dr. Kierra Santiago MD Work Phone: 4(671)048-586142 [place] [address] 04-04-2024 10:00-0500 Respiratory rate 16 /min Dr. Kierra Santiago MD Work Phone: 7(002)990-036842 [place] [address] 04-04-2024 10:00-0500 SaO2% (BldA) [Mass fraction] 94 % Dr. Kierra Santiago MD Work Phone: [facility] 04-04-2024 10:00-0500 Systolic blood pressure 143 mm[Hg] Dr. Kierra Santiago MD Work Phone: [facility] 04-04-2024 08:05-0500 Body mass index (BMI) [Ratio] 24.4 kg/m2 Dr. Kierra Santiago MD Work Phone: [facility] 04-04-2024 08:05-0500 Body weight 62.[address] Kierra Santiago MD Work Phone: [facility] 02-23-2024 09:22-0400 Body mass index (BMI) [Ratio] 24.96 kg/m2 Anastasiia Colón SUPERVISOR [employer].STUDENT EDUCATION SPECIALIST Work Phone: [facility] 02-23-2024 09:22-0400 Body weight 62.9 kg Anastasiia Colón SUPERVISOR [employer]ILITY.STUDENT EDUCATION SPECIALIST Work Phone: [facility] 02-23-2024 09:22-0400 Diastolic blood pressure 65 mm[Hg] Anastasiia Colón SUPERVISOR [employer]ILITY.STUDENT EDUCATION SPECIALIST Work Phone: [facility] 02-23-2024 09:22-0400 Heart rate 77 /min Anastasiia Colón SUPERVISOR [employer]ILITY.STUDENT EDUCATION SPECIALIST Work Phone: [facility] 02-23-2024 09:22-0400 Respiratory rate 16 /min Anastasiia Colón SUPERVISOR [employer]ILITY.STUDENT EDUCATION SPECIALIST Work Phone: [facility] 02-23-2024 09:22-0400 Systolic blood pressure 96 mm[Hg] Anastasiia Colón SUPERVISOR [employer].STUDENT EDUCATION SPECIALIST Work Phone: [facility] 01-11-2024 16:55-0400 Body mass index (BMI) [Ratio] 27.06 kg/m2 Kierra Santiago MD Work Phone: [facility] 01-11-2024 16:55-0400 Body temperature 99.5 [degF] Kierra Santiago MD Work Phone: [facility] 01-11-2024 16:55-0400 Body weight 68.2 kg Kierra Santiago MD Work Phone: [facility] 01-11-2024 16:55-0400 Diastolic blood pressure 68 mm[Hg] Kierra Santiago MD Work Phone: [facility] 01-11-2024 16:55-0400 Heart rate 58 /min Kierra Santiago MD Work Phone: [facility] 01-11-2024 16:55-0400 Respiratory rate 18 /min Kierra Santiago MD Work Phone: [facility] 01-11-2024 16:55-0400 SaO2% (BldA) [Mass fraction] 94 % Kierra Santiago MD Work Phone: [facility] 01-11-2024 16:55-0400 Systolic blood pressure 124 mm[Hg] Kierra Santiago MD Work Phone: [facility] 12-31-2023 11:51-0400 Body mass index (BMI) [Ratio] 28.09 kg/m2 Krislyn Aberegg PA Work Phone: [facility] 12-31-2023 11:51-0400 Body temperature 98.71 [degF] Krislyn Aberegg PA Work Phone: [facility] 12-31-2023 11:51-0400 Body weight 70.8 kg Krislyn Aberegg PA Work Phone: [facility] 12-31-2023 11:51-0400 Heart rate 62 /min Krislyn Aberegg PA Work Phone: [facility] 12-31-2023 11:51-0400 Respiratory rate 20 /min Krislyn Aberegg PA Work Phone: [facility] 12-31-2023 11:51-0400 SaO2% (BldA) [Mass fraction] 89 % Krislyn Aberegg PA Work Phone: [facility] 12-11-2023 09:58-0400 Body mass index (BMI) [Ratio] 27.54 kg/m2 Krislyn Aberegg PA Work Phone: [facility] 12-11-2023 09:58-0400 Body temperature 101.1 [degF] Krislyn Aberegg PA Work Phone: [facility] 12-11-2023 09:58-0400 Body weight 69.4 kg Krislyn Aberegg PA Work Phone: [facility] 12-11-2023 09:58-0400 Diastolic blood pressure 84 mm[Hg] Krislyn Aberegg PA Work Phone: [facility] 12-11-2023 09:58-0400 Heart rate 98 /min Krislyn Aberegg PA Work Phone: [facility] 12-11-2023 09:58-0400 Respiratory rate 18 /min Krislyn Aberegg PA Work Phone: [facility] 12-11-2023 09:58-0400 SaO2% (BldA) [Mass fraction] 95 % Krislyn Aberegg PA Work Phone: [facility] 12-11-2023 09:58-0400 Systolic blood pressure 126 mm[Hg] Krislyn Aberegg PA Work Phone: [facility] 11-18-2023 11:03-0400 Body height 158.8 cm Rula Benavides SUPERVISOR [employer]AT[employer]ACILITY.PURCHASING ADMINISTRATOR Work Phone: [facility] 11-18-2023 11:03-0400 Body mass index (BMI) [Ratio] 26.82 kg/m2 Rula Benavides SUPERVISOR [employer]IM[employer]ACILITY.PURCHASING ADMINISTRATOR Work Phone: [facility] 11-18-2023 11:03-0400 Body weight 67.59 kg Rula Benavides SUPERVISOR [employer]IMAL [employer]ACILITY.PURCHASING ADMINISTRATOR Work Phone: [facility] 11-18-2023 11:03-0400 Diastolic blood pressure 78 mm[Hg] Rula Hritz SUPERVISOR [employer]IM[employer]ACILITY.PURCHASING ADMINISTRATOR Work Phone: [facility] 11-18-2023 11:03-0400 Heart rate 102 /min Rula Hritz SUPERVISOR [employer]ACILITY.PURCHASING ADMINISTRATOR Work Phone: [facility] 11-18-2023 11:03-0400 Systolic blood pressure 132 mm[Hg] Rula Hritz SUPERVISOR [employer]IM[employer]ACILITY.PURCHASING ADMINISTRATOR Work Phone: [facility] 11-14-2023 09:33-0400 Diastolic blood pressure 79 mm[Hg] Anastasiia Colón SUPERVISOR [employer]ACILITY.STUDENT EDUCATION SPECIALIST Work Phone: [facility] 11-14-2023 09:33-0400 Systolic blood pressure 150 mm[Hg] Anastasiia Colón SUPERVISOR [employer]ACILITY.STUDENT EDUCATION SPECIALIST Work Phone: [facility] 11-14-2023 09:31-0400 Body mass index (BMI) [Ratio] 26.28 kg/m2 Anastasiia Colón SUPERVISOR [employer]ACILITY.STUDENT EDUCATION SPECIALIST Work Phone: [facility] 11-14-2023 09:31-0400 Body weight 66.22 kg Anastasiia Colón SUPERVISOR [employer]ACILITY.STUDENT EDUCATION SPECIALIST Work Phone: [facility] 11-14-2023 09:31-0400 Heart rate 97 /min Anastasiia Colón SUPERVISOR [employer]ACILITY.STUDENT EDUCATION SPECIALIST Work Phone: [facility] 11-14-2023 09:31-0400 Respiratory rate 16 /min Anastasiia Colón SUPERVISOR [employer]ILITY.STUDENT EDUCATION SPECIALIST Work Phone: [facility] 10-10-2023 11:44-0400 Body mass index (BMI) [Ratio] 25.38 kg/m2 Anastasiia Colón SUPERVISOR [employer]ILITY.STUDENT EDUCATION SPECIALIST Work Phone: [facility] 10-10-2023 11:44-0400 Body weight 63.96 kg Anastasiia Colón SUPERVISOR [employer]ACILITY.STUDENT EDUCATION SPECIALIST Work Phone: [facility] 10-10-2023 11:44-0400 Diastolic blood pressure 71 mm[Hg] Anastasiia Colón SUPERVISOR [employer]IM[employer]ACILITY.STUDENT EDUCATION SPECIALIST Work Phone: [facility] 10-10-2023 11:44-0400 Heart rate 118 /min Anastasiia Colón SUPERVISOR [employer]ACILITY.STUDENT EDUCATION SPECIALIST Work Phone: [facility] 10-10-2023 11:44-0400 Respiratory rate 16 /min Anastasiia Colón SUPERVISOR [employer]ACILITY.STUDENT EDUCATION SPECIALIST Work Phone: [facility] 10-10-2023 11:44-0400 Systolic blood pressure 106 mm[Hg] Anastasiia Colón SUPERVISOR [employer]ACILITY.STUDENT EDUCATION SPECIALIST Work Phone: [facility] 10-04-2023 09:36-0400 Diastolic blood pressure 65 mm[Hg] Mary Kay Delgado DO Work Phone: [facility] 10-04-2023 09:36-0400 Systolic blood pressure 108 mm[Hg] Mary Kay Delgado DO Work Phone: [facility] 10-04-2023 09:30-0400 Heart rate 79 /min Mary Kay Delgado DO Work Phone: [facility] 10-04-2023 09:30-0400 SaO2% (BldA) [Mass fraction] 96 % Mary Kay Delgado DO Work Phone: [facility] 06-07-2023 09:02-0500 Body weight 68.95 kg Anastasiia Colón SUPERVISOR [employer]ILITY.STUDENT EDUCATION SPECIALIST Work Phone: [facility] 06-07-2023 09:02-0500 Diastolic blood pressure 74 mm[Hg] Anastasiia Colón SUPERVISOR [employer]IM[employer]ACILITY.STUDENT EDUCATION SPECIALIST Work Phone: [facility] 06-07-2023 09:02-0500 Heart rate 97 /min Anastasiia Colón SUPERVISOR [employer]ILITY.STUDENT EDUCATION SPECIALIST Work Phone: [facility] 06-07-2023 09:02-0500 SaO2% (BldA) [Mass fraction] 96 % Anastasiia Colón SUPERVISOR [employer]ACILITY.STUDENT EDUCATION SPECIALIST Work Phone: [facility] 06-07-2023 09:02-0500 Systolic blood pressure 126 mm[Hg] Anastasiia Colón SUPERVISOR [employer]ILITY.STUDENT EDUCATION SPECIALIST Work Phone: [facility] 03-15-2023 10:48-0500 Diastolic blood pressure 78 mm[Hg] Lelo Barrie SUPERVISOR [employer]AT[employer]IMAL [employer]ACILITY.PURCHASING ADMINISTRATOR Work Phone: [facility] 03-15-2023 10:48-0500 Heart rate 74 /min Lelo Barrie SUPERVISOR [employer]AT[employer]IM[employer]ACILITY.PURCHASING ADMINISTRATOR Work Phone: [facility] 03-15-2023 10:48-0500 SaO2% (BldA) [Mass fraction] 97 % Lelo Barrie SUPERVISOR [employer]IM[employer]ACILITY.PURCHASING ADMINISTRATOR Work Phone: [facility] 03-15-2023 10:48-0500 Systolic blood pressure 134 mm[Hg] Lelo Barrie SUPERVISOR [employer]IMAL FACILITY.PURCHASING ADMINISTRATOR Work Phone: [facility] 02-04-2023 16:35-0400 Body weight 69.85 kg Kierra Santiago MD Work Phone: [facility] 02-04-2023 16:35-0400 Diastolic blood pressure 70 mm[Hg] Kierra Santiago MD Work Phone: [facility] 02-04-2023 16:35-0400 Heart rate 52 /min Kierra Santiago MD Work Phone: [facility] 02-04-2023 16:35-0400 SaO2% (BldA) [Mass fraction] 97 % Kierra Santiago MD Work Phone: [facility] 02-04-2023 16:35-0400 Systolic blood pressure 134 mm[Hg] Kierra Santiago MD Work Phone: [facility] 12-22-2022 10:28-0400 Body weight 69.85 kg Sheryl Eric SUPERVISOR [employer]ACILITY.PURCHASING ADMINISTRATOR Work Phone: [facility] 12-22-2022 10:28-0400 Diastolic blood pressure 60 mm[Hg] Sheryl Eric SUPERVISOR [employer]AT[employer]IMAL FACILITY.PURCHASING ADMINISTRATOR Work Phone: [facility] 12-22-2022 10:28-0400 Heart rate 81 /min Sheryl Eric SUPERVISOR [employer]IM[employer]ACILITY.PURCHASING ADMINISTRATOR Work Phone: [facility] 12-22-2022 10:28-0400 SaO2% (BldA) [Mass fraction] 96 % Sheryl Reyes SUPERVISOR [employer]ACILITY.PURCHASING ADMINISTRATOR Work Phone: [facility] 12-22-2022 10:28-0400 Systolic blood pressure 124 mm[Hg] Sheryl Reyes SUPERVISOR [employer]IM[employer] FACILITY.PURCHASING ADMINISTRATOR Work Phone: [facility] 12-01-2022 11:00-0400 Diastolic blood pressure 75 mm[Hg] Pal Johnson MD Work Phone: [facility] 12-01-2022 11:00-0400 Heart rate 75 /min Pal Johnson MD Work Phone: [facility] 12-01-2022 11:00-0400 SaO2% (BldA) [Mass fraction] 97 % Pal Johnson MD Work Phone: [facility] 12-01-2022 11:00-0400 Systolic blood pressure 146 mm[Hg] Pal Johnson MD Work Phone: [facility] 10-12-2022 11:09-0400 Diastolic blood pressure 78 mm[Hg] Mary Kay Delgado DO Work Phone: [facility] 10-12-2022 11:09-0400 Heart rate 79 /min Mary Kay Delgado DO Work Phone: [facility] 10-12-2022 11:09-0400 SaO2% (BldA) [Mass fraction] 96 % Mary Kay Delgado DO Work Phone: [facility] 10-12-2022 11:09-0400 Systolic blood pressure 124 mm[Hg] Mary Kay Delgado DO Work Phone: [facility] 08-02-2022 09:38-0400 Body weight 71.67 kg Anastasiia Colón SUPERVISOR LABORATORY ANIMAL FACILITY.STUDENT EDUCATION SPECIALIST Work Phone: [facility] 08-02-2022 09:38-0400 Diastolic blood pressure 62 mm[Hg] Anastasiia Colón SUPERVISOR LABORATORY ANIMAL FACILITY.STUDENT EDUCATION SPECIALIST Work Phone: [facility] 08-02-2022 09:38-0400 Heart rate 76 /min Anastasiia Colón SUPERVISOR LABORATORY ANIMAL FACILITY.STUDENT EDUCATION SPECIALIST Work Phone: [facility] 08-02-2022 09:38-0400 Respiratory rate 16 /min Anastasiia Colón SUPERVISOR LABORATORY ANIMAL FACILITY.STUDENT EDUCATION SPECIALIST Work Phone: [facility] 08-02-2022 09:38-0400 Systolic blood pressure 130 mm[Hg] Anastasiia Colón SUPERVISOR LABORATORY ANIMAL FACILITY.STUDENT EDUCATION SPECIALIST Work Phone: [facility] 07-01-2022 08:21-0500 Body height 158.8 cm Anastasiia Colón SUPERVISOR LABORATORY ANIMAL FACILITY.STUDENT EDUCATION SPECIALIST Work Phone: [facility] 07-01-2022 08:21-0500 Body weight 71.67 kg Anastasiia Colón SUPERVISOR LABORATORY ANIMAL FACILITY.STUDENT EDUCATION SPECIALIST Work Phone: [facility] 07-01-2022 08:21-0500 Diastolic blood pressure 66 mm[Hg] Anastasiia Colón SUPERVISOR LABORATORY ANIMAL FACILITY.STUDENT EDUCATION SPECIALIST Work Phone: [facility] 07-01-2022 08:21-0500 Heart rate 67 /min Anastasiia Colón SUPERVISOR LABORATORY ANIMAL FACILITY.STUDENT EDUCATION SPECIALIST Work Phone: [facility] 07-01-2022 08:21-0500 Respiratory rate 16 /min Anastasiia Colón SUPERVISOR LABORATORY ANIMAL FACILITY.STUDENT EDUCATION SPECIALIST Work Phone: [facility] 07-01-2022 08:21-0500 SaO2% (BldA) [Mass fraction] 96 % Anastasiia Colón SUPERVISOR LABORATORY ANIMAL FACILITY.STUDENT EDUCATION SPECIALIST Work Phone: [facility] 07-01-2022 08:21-0500 Systolic blood pressure 118 mm[Hg] Anastasiia Colón SUPERVISOR LABORATORY ANIMAL FACILITY.STUDENT EDUCATION SPECIALIST Work Phone: [facility] Encounters Encounter Date Encounter Type Care Provider Facility Start: 03-13-2025 End: 03-13-2025 ambulatory Kierra D Talampas Facility:[facility] Start: 03-13-2025 Encounter for other preprocedural examination [facility] Start: 03-12-2025 End: 03-12-2025 ambulatory KIERRA D TALAMPAS Facility:[facility] Start: 03-08-2025 ambulatory Kierra D Talampas Facilit y:ARELY Start: 03-08-2025 End: 03-08-2025 ambulatory Laura Crowell Facility:[facility] Start: 02-26-2025 ambulatory Shaan Rojas [facility] Start: 02-26-2025 End: 02-27-2025 Evaluation and management of inpatient Shaan Rojas Facility:[facility] Start: 02-26-2025 ambulatory Shaan Rojas [facility] Start: 02-20-2025 End: 02-20-2025 ambulatory IKERRA D TALAMPAS Facility:[facility] Start: 02-06-2025 End: 02-06-2025 ambulatory KIERRA D TALAMPAS Facility:[facility] Start: 02-05-2025 End: 02-05-2025 Patient encounter procedure Laura SEGURA -[facility] Work Phone: Start: 02-05-2025 End: 02-05-[address] Kierra Santiago MD Work Phone: -[facility] Start: 01-29-2025 End: 01-29-2025 ambulatory KIERRA D TALAMPAS Facility:[facility] Start: 01-29-2025 End: 01-29-2025 ambulatory KIERRA D TALAMPAS Facility:[facility] Start: 01-29-2025 Patient encounter procedure KIERRA D T ALAMPAS [facility] Start: 01-23-2025 Non-patient / Non-visit Dr. Shaan hung MD -[facility] Start: 01-22-2025 ambulatory Shaan Rojas Facility:[facility] Start: 01-22-2025 End: 01-23-2025 Evaluation and management of inpatient Dr. Shaan Rojas MD -Intensive Care Unit Work Phone: Start: 01-22-2025 Non-patient / Non-visit Dr. Shaan hung MD -[facility] Start: 01-22-2025 ambulatory Shaan Rojas [facility] Start: 01-16-2025 End: 01-16-2025 ambulatory KIERRA D TALAMPAS Facility:[facility] Start: 12-27-2024 End: 12-27-2024 Anticoagulant drug monitoring [facility] Work Phone: [facility] [place] Comment on above: Factor V deficiency (HCC) (Primary Dx) Start: 12-27-2024 End: 12-27-2024 ambulatory KIERRA D TALAMPAS Facility:[facility] Start: 12-20-2024 End: 12-20-2024 Anticoagulant drug monitoring [facility] Work Phone: [facility] [place] Comment on above: Factor V deficiency (HCC) (Primary Dx) Start: 12-20-2024 End: 12-20-2024 ambulatory KIERRA D TALAMPAS Facility:[facility] Start: 12-13-2024 Encounter for prepro cedural cardiovascular examination Dominick [facility] Start: 12-13-2024 End: 12-13-2024 Patient encounter procedure Dominick Faria [facility] MARKET RESEARCH INTERVIEWER-C -[facility] Work Phone: Start: 12-13-[address] Spencer Santiago MD Work Phone: [facility] Start: 12-13-2024 End: 12-13-2024 Anticoagulant drug monitoring [facility] Phone[facility] Comment on above: Factor V deficiency (HCC) (Primary Dx) Start: 12-13-2024 End: 12-13-[address] Kierra Santiago MD Work Phone: [facility] Start: 12-06-2024 End: 12-06-2024 ambulatory KIERRA Irma SANTIAGO Facility:[facility] Start: 11-28-2024 End: 11-28-2024 Anticoagulant drug monitoring [facility] Work Phone: [facility] [place] Comment on above: Factor V deficiency (HCC) (Primary Dx) Start: 11-28-2024 End: 11-28-2024 ambulatory KIERRA Irma SANTIAGO Facility:[facility] Start: 11-15-2024 End: 11-15-2024 Refill Kierra Santiago MD Work Phone: [address] [place] [address] Comment on above: Refill Request Start: 10-31-2024 End: 10-31-[address] Shaan Rojas MD -[facility] Work Phone: Start: 10-31-2024 End: 10-31-[address] Kierra Santiago MD Work Phone: -[facility] Start: 10-30-2024 End: 10-30-2024 ambulatory KIERRA SANTIAGO Facility:[facility] Start: 10-29-2024 End: 10-31-2024 Telephone encounter Kierra Santiago MD Work Phone: [facility] [place] Comment on above: Medication Problem ( Glimepiride/) [...] V Leiden mutation (HCC); Peripheral vascular disease; long-term (current) use of anticoagulants Start: 10-24-2024 End: 10-24-2024 Anticoagulant drug monitoring [facility] Work Phone: [facility] [place] Comment on above: Factor V deficiency (HCC) (Primary Dx) Start: 10-24-2024 End: 10-24-2024 ambulatory KIERRA SANTIAGO Facility:[facility] Start: 10-19-2024 End: 10-19-2024 Refill Kierra Santiago MD Work Phone: [facility] [place] Comment on above: Refill Request Start: 10-10-2024 Non-patient / Non-visit Dr. Blanco Monae DO -[facility] Work Phone: Start: 10-10-[address] [facility] Start: 10-09-2024 Non-patient / Non-visit Robb Cummins nd [facility] Start: 10-09-2024 Non-patient / Non-visit Dr. Candelaria Herrera MD -[facility] Start: 10-08-2024 Non-patient / Non-visit Robb Cummins nd [facility] Start: 10-08-2024 Non-patient / Non-visit Dr. Blanco Monae -[facility] Work Phone: Start: 10-08-2024 Non-patient / Non-visit Dr. Candelaria Herrera MD -[facility] Start: 10-07-2024 Non-patient / Non-visit Dr. Bharti Muñoz MD -[facility] Work Phone: Start: 10-07-2024 ambulatory Roly Herrera Facility :[facility] Start: 10-07-2024 End: 10-10-2024 Evaluation and management of inpatient Dr. Kelsie Muñoz MD -Progressive Care Unit Work Phone: Start: 10-06-2024 Encounter for prepro cedural laboratory examination [facility] Start: 10-02-2024 End: 10-02-[address] Kierra Santiago MD Work Phone: [facility] Work Phone: Start: 10-02-2024 End: 10-02-[address] Eugene Blanca DPM -Cardiovascular Services Work Phone: Start: 10-01-2024 End: 10-02-[address] Kierra Santiago MD Work Phone: [facility] Work Phone: Start: 10-01-2024 End: 10-01-2024 Patient encounter procedure Laura Crowell PA -Cat Scan WC H Work Phone: Start: 10-01-2024 End: 10-01-2024 ambulatory Laura Crowell Facility:[facility] Start: 09-11-2024 End: 09-11-2024 Anticoagulant drug monitoring [facility] Work Phone: [facility] Comment on above: Factor V deficiency (HCC) (Primary Dx) Start: 09-11-2024 End: 09-11-2024 ambulatory KIERRA SANTIAGO Facility:[facility] Start: 09-06-2024 End: 09-29-2024 Discharged Recurring Self Referred -Nutritional Servic es Work Phone: Start: 09-06-2024 End: 09-29-[address] Kierra Santiago MD Work Phone: [facility] Work Phone: Start: 08-28-2024 ambulatory Laura Crowell Facility:[facility] Start: 08-28-2024 Non-patient / Non-visit Dr. Shaan hung MD -[facility] Start: 08-28-2024 End: 08-28-2024 Patient encounter procedure Laura Crowell PA -Cardiovascu lar Services Work Phone: Start: 08-28-2024 End: 08-28-2024 ambulatory Laura Crowell Facility:[facility] Start: 08-22-2024 ambulatory Robb Giron Facility :[facility] Start: 08-22-2024 Non-patient / Non-visit Robb Cummins nd DO -[facility] Start: 08-22-2024 End: 08-22-2024 Admission to same day surgery center Robb Giron DO -Endoscopy Work Phone: Start: 08-22-2024 End: 08-22-2024 ambulatory Kierra Santiago Facility:[facility] Start: 08-21-2024 End: 08-21-2024 [facility] Work [facility]: [facility] Comment on above: Factor V deficiency (HCC) (Primary Dx) Start: 08-21-2024 End: 08-21-2024 ambulatory KIERRA SANTIAGO Facility:[facility] Start: 08-15-2024 End: 08-15-[address] Kierra Santiago MD Work Phone: [facility] Work Phone: Start: 08-15-2024 End: 08-15-2024 Patient encounter procedure Dominick Harrell MARKET RESEARCH INTERVIEWER-C -Laboratory Work Phone: Start: 08-15-2024 End: 08-15-2024 ambulatory Dominick Harrell Facility:[facility] Start: 08-06-2024 End: 08-07-2024 Refill Kierra Santiago MD Work Phone: [facility] [place] Comment on above: Refill Request Start: 07-31-2024 End: 07-31-2024 Telephone encounter Kierra Santiago MD Work Phone: [facility] Comment on above: Orders (poc protime) Start: 07-31-2024 End: 07-31-2024 ambulatory KIERRA SANTIAGO Facility:[facility] Start: 07-31-2024 End: 07-31-2024 Anticoagulant drug monitoring [facility] Work Phone: [facility] Comment on above: Factor V deficiency (HCC) (Primary Dx) Start: 07-25-2024 End: 07-25-[address] Kierra Santiago MD Work Phone: [facility] Work Phone: Start: 07-25-2024 End: 07-25-2024 Patient encounter procedure Dominick Faria Julio Cesar MARKET RESEARCH INTERVIEWER-C -Laboratory Work Phone: Start: 07-25-2024 End: 07-25-2024 ambulatory Dominick Harrell Facility:[facility] Start: 07-17-2024 End: 07-17-2024 Anticoagulant drug monitoring [facility] Work Phone: [facility] Comment on above: Factor V deficiency (HCC) (Primary Dx) Refill Request Start: 07-17-2024 End: 07-17-2024 ambulatory KIERRA SANTIAGO Facility:[facility] Start: 07-17-2024 End: 07-17-2024 Office outpatient visit 25 minutes Anastasiia Colón SUPERVISOR LABORATORY ANIMAL FACILITY.STUDENT EDUCATION SPECIALIST Work Phone: [facility] [place] Comment on above: 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, without long-term current use of insulin (HCC) (Primary Dx); Hypokalemia; Other acute sinusitis; Decreased hearing of both ears; Subclinical hypothyroidism; History of anemia; S/P transmetatarsal amputation of foot, right (HCC); Stage 3b chronic kidney disease (HCC) Start: 07-11-2024 End: 07-11-2024 Home visit Kierra Santiago MD Work Phone: [facility] [place] Comment on above: 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 Kierra Santiago MD Work Phone: [facility] Work Phone: Start: 07-10-2024 End: 07-10-2024 Patient encounter procedure Dominick YUN -Laboratory Work Phone: Start: 07-10-2024 End: 07-10-2024 [facility] Start: 07-05-2024 End: 07-05-2024 [facility] Comment on above: Factor V deficiency (HCC) (Primary Dx) Start: 07-05-2024 End: 07-05-2024 ambulatory KIERRA D TALAMPAS Facility:[facility] Start: 06-28-2024 End: 06-28-2024 ambulatory KIERRA D TALAMPAS Facility:[facility] Start: 06-28-2024 End: 06-29-2024 [facility] Comment on above: Factor V deficiency (HCC) (Primary Dx) Refill Request Start: 06-20-2024 End: 06-20-2024 ambulatory Kierra D Talampas Facility:[facility] Start: 06-20-2024 End: 06-20-2024 Patient encounter procedure Dominick Serrano rt Group Work Phone: Start: 06-19-2024 End: 06-19-2024 Patient encounter procedure Ese SEGURA -[facility] Work Phone: Start: 06-19-2024 End: 06-20-2024 ambulatory Ese Hillman Facility:[facility] Start: 06-14-2024 End: 06-14-2024 Anticoagulant drug monitoring [facility] Work Phone: [facility] Comment on above: Factor V deficiency (HCC) (Primary Dx) Start: 06-14-2024 End: 06-14-2024 ambulatory KIERRA D TALAMPAS Facility:[facility] Start: 06-13-2024 End: 06-13-2024 Patient encounter procedure Laura SEGURA -Laboratory, Specimen Work Phone: Start: 06-12-2024 End: 06-12-2024 Patient encounter procedure Laura SEGURA [facility] Vascular Surgery Work Phone: Start: 06-12-2024 End: 06-13-2024 ambulatory Laura Crowell Facility:[facility] Start: 06-04-2024 End: 06-04-2024 ambulatory KIERRA D TALAMPAS Facility:[facility] Start: 06-04-2024 End: 06-04-2024 Patient [...] Non-patient / Non-visit Dr. Shaan hung MD -[facility] Start: 05-28-2024 End: 05-28-[address] Shaan Rojas MD -Cardiovascu lar Services Work Phone: Start: 05-28-2024 End: 05-28-2024 ambulatory Roly Herrera Facility:[facility] Start: 05-23-2024 End: 05-23-2024 Telephone encounter Kierra Santiago MD Work Phone: [facility] [place] Comment on above: Anticoagulation Start: 05-21-2024 End: 05-21-2024 Telephone encounter Terrence Jane MD Work Phone: Cardiology Comment on above: Results Start: 05-16-2024 End: 05-18-2024 Telephone encounter Kierra Santiago MD Work Phone: [facility] [place] Comment on above: Patient Update; Anti coagulation Start: 05-14-2024 End: 05-14-[address] Roly Herrera MD -[place] [facility] Work Phone: Start: 05-14-2024 End: 05-16-2024 Refill Kierra Santiago MD Work Phone: [facility] [place] Comment on above: Refill Request Symptoms Start: 05-12-2024 End: 05-12-2024 ambulatory Nallely An RN NURSE TUBE ROLLER Comment on above: Hypertension Start: 05-09-2024 End: 05-09-2024 Telephone encounter Kierra Santiago MD Work Phone: [facility] [place] Comment on above: Patient Update; Anti coagulation Start: 05-08-2024 End: 05-08-2024 Patient encounter procedure Mary Kay Delgado DO Work Phone: Vascular Surgery Comment on above: Occlusion and stenos is of unspecified carotid artery (Primary Dx) Start: 05-08-2024 End: 05-08-2024 ambulatory KIERRA SANTIAGO Facility:[facility] Start: 05-03-2024 End: 05-19-2024 Telephone encounter Kierra Santiago MD Work Phone: [facility] [place] Comment on above: Home Care Management Refill Request (SEE RX NOTES) Start: 05-01-2024 End: 05-03-2024 Telephone encounter Kierra Santiago MD Work Phone: [facility] [place] Comment on above: Anticoagulation Start: 04-30-2024 End: 06-25-2024 Telephone encounter Kierra Santiago MD Work Phone: [facility] [place] Comment on above: Patient Update Start: 04-27-2024 [...] Start: 04-23-2024 End: 04-23-2024 ambulatory KIERRA SANTIAGO Facility:[facility] Start: 04-23-2024 End: 04-24-2024 Telephone encounter Kierra Santiago MD Work Phone: [facility] [place] Comment on above: [facility] - INR message Start: 04-18-2024 End: 04-20-2024 Telephone encounter Kierra Santiago MD Work Phone: [facility] [place] Comment on above: Anticoagulation Start: 04-17-2024 End: 04-17-2024 ambulatory KIERRA SANTIAGO Facility:[facility] Start: 04-17-2024 End: 04-17-2024 Office outpatient visit 25 minutes Anastasiia Colón APRN.CNS Work Phone: [facility] [place] Comment on above: Critical limb ischem ia [...] Kierra Santiago MD Work Phone: [facility] [place] Comment on above: Orders Start: 04-11-2024 End: 04-12-2024 Telephone encounter Kierra Santiago MD Work Phone: [facility] [place] Comment on above: Question Start: 04-09-2024 End: 04-09-2024 Telephone encounter Kierra Santiago MD Work Phone: [facility] [place] Comment on above: Home Care Management Start: 04-09-2024 End: 04-09-2024 ambulatory [facility] Facility:[facility] Start: 04-06-2024 End: 04-10-2024 ambulatory Kierra Santiago MD Work Phone: [facility] [place] Start: 04-05-2024 End: 04-05-2024 Telephone encounter Kierra Santiago MD Work Phone: [facility] [place] Comment on above: Home Health Orders Start: 04-05-2024 Non-patient / Non-visit Laura Crowell [facility] Start: 04-05-2024 ambulatory Laura Crowell Facility:[facility] Start: 04-04-2024 ambulatory Kierra Santiago Facilit y:[facility] Start: 04-04-2024 Non-patient / Non-visit Robb Cummins nd DO -[facility] Start: 04-04-2024 End: 04-04-2024 Admission to same day surgery center Robb Giron DO -Endoscopy Work Phone: Start: 04-04-2024 End: 04-04-2024 ambulatory Kierra Santiago Facility:[facility] Start: 04-02-2024 Non-patient / Non-visit Robb Cummins nd DO -[facility] Start: 03-27-2024 Non-patient / Non-visit Laura Crowell [facility] Start: 03-23-2024 [facility] Start: 03-19-2024 ambulatory Kierra Cunningham y:[facility] Start: 03-19-2024 End: 04-08-2024 Evaluation and management of inpatient Dr. Jason Smith MD -Transitional Care Unit Start: 03-07-2024 End: 03-09-2024 Telephone encounter Kierra Santiago MD Work Phone: [facility] [place] Comment on above: Patient Update Start: 03-01-2024 End: 03-01-2024 Anticoagulant drug monitoring [facility] Work Phone: [facility] [place] Comment on above: Factor V deficiency (HCC) (Primary Dx) Start: 02-29-2024 End: 03-03-2024 Telephone encounter Kierra Santiago MD Work Phone: [facility] [place] Comment on above: Patient Update Start: 02-27-2024 End: 02-27-2024 Anticoagulant drug monitoring [facility] Work Phone: [facility] [place] Comment on above: Factor V deficiency (HCC) (Primary Dx) Start: 02-24-2024 End: 02-24-2024 Telephone encounter Anastasiia Colón APRN.STUDENT EDUCATION SPECIALIST Work Phone: [facility] [place] Start: 02-23-2024 End: 02-23-2024 Telephone encounter Anastasiia Colón APRN.STUDENT EDUCATION SPECIALIST Work Phone: [facility] [place] Comment on above: Anticoagulation Start: 02-23-2024 End: 02-23-2024 Office outpatient visit 25 minutes Anastasiia Colón APRN.STUDENT EDUCATION SPECIALIST Work Phone: [facility] [place] Comment on [...] Factor 5 Leiden mutation, heterozygous (HCC) Start: 02-13-2024 End: 02-13-2024 Telephone encounter Kierra Santiago MD Work Phone: [facility] [place] Comment on above: [facility] PT POC Start: 02-09-2024 End: 02-13-2024 Telephone encounter Kierra Santiago MD Work Phone: [facility] [place] Comment on above: Home Health Point of Care Results Start: 02-08-2024 End: 02-08-2024 Telephone encounter Kierra Santiago MD Work Phone: [facility] [place] Comment on above: Home Health Orders Start: 01-14-2024 End: 01-14-2024 Patient Outreach Nancy Albert RN Work Phone: [employer] Comment on above: Transition Of Care S tarted Weekly phone contact (Recurring) for Transitional Care Management Start: 01-13-2024 End: 01-13-2024 Patient encounter procedure Nataliia Rehman APRN.PURCHASING ADMINISTRATOR Work Phone: [facility] Comment on above: Pain (Primary Dx) Start: 01-11-2024 End: 01-11-2024 Transitional care manage srvc 14 day discharge Kierra Santiago MD Work Phone: [facility] [place] Comment on above: Acute on chronic con gestive heart failure, unspecified heart failure type (HCC) (Primary Dx); Type 2 diabetes mellitus with diabetic polyneuropathy, without long-term current use of insulin (HCC); Hypokalemia; Leg cramp; Ulcer of right foot, limited to breakdown of skin (HCC); Callus of foot; Dependent rubor Start: 01-06-2024 End: 01-06-2024 Patient Outreach Nancy Albert RN Work Phone: [employer] Comment on above: Initial phone contac t for Transitional Care Management Start: 01-05-2024 End: 01-05-2024 [facility] Work [facility]: [facility] [place] Comment on above: Factor V deficiency (HCC) (Primary Dx) Start: 12-31-2023 End: 12-31-2023 Patient encounter procedure Jean Pierre SEGURA Work Phone: [facility] Comment on above: Hypoxia (Primary Dx) Start: 12-30-2023 End: 12-30-2023 Refill Kierra Santiago MD Work Phone: [facility] [place] Comment on above: Refill Request Start: 12-27-2023 End: 12-27-2023 Telephone encounter Kierra Santiago MD Work Phone: [facility] [place] Comment on above: Labs needed? Start: 12-12-2023 Telephone encounter Jean Pierre SEGURA Work Phone: [facility] Comment on above: Results Start: 12-12-2023 End: 12-12-2023 Subsequent hospital visit by physician [facility] [place] Work Phone: Radiology Comment on above: Acute cough [R05.1] Start: 12-11-2023 End: 12-11-2023 Patient encounter procedure Jean Pierre SEGURA Work Phone: [facility] Comment on above: Acute cough (Primary Dx); URI, acute Start: 12-08-2023 End: 12-08-2023 Anticoagulant drug monitoring [facility] Work Phone: [facility] [place] Comment on above: Factor V deficiency (HCC) (Primary Dx) Start: 11-30-2023 End: 11-30-2023 Subsequent hospital visit by physician [facility] Work Phone: Radiology Comment on above: Elevated alanine ami notransferase (ALT) level [R74.01] Start: 11-18-2023 End: 11-18-2023 Office outpatient new 30 minutes Rula Benavides APRN.CNP Work Phone: [facility] [place] Comment on above: Elevated alanine ami notransferase (ALT) level (Primary Dx) Start: 11-14-2023 End: 11-14-2023 Patient encounter procedure Nurse Card Admin [facility] Work Phone: Cardiology Comment on above: Chest pain, unspecif ied type Start: 11-14-2023 End: 11-14-2023 Office outpatient visit 25 minutes Anastasiia Colón APRN.STUDENT EDUCATION SPECIALIST Work Phone: [facility] Comment on above: Chest pain, unspecif ied type (Primary Dx); Encounter for immunization; Type 2 diabetes mellitus with hyperglycemia, without long-term current use of insulin (HCC); Lung nodules; Transaminitis; Factor 5 Leiden mutation, heterozygous (HCC) Start: 11-10-2023 End: 11-10-2023 Anticoagulant drug monitoring [facility] Work Phone: [facility] [place] Comment on above: Factor V deficiency (HCC) (Primary Dx) Start: 11-08-2023 ambulatory Nurse Card Adm in [facility] Work Phone: Cardiology Comment on above: Stress Test Instruct ions for 11/14/23 Start: 11-08-2023 E-mail encounter etienne crow caregiver Nurse Card Admin [facility] Work Phone: Cardiology Start: 11-07-2023 Telephone encounter Anastasiia vigil APRN.STUDENT EDUCATION SPECIALIST Work Phone: [facility] [place] Comment on above: Results Start: 11-06-2023 Orders Only Anastasiia Colón APRN.STUDENT EDUCATION SPECIALIST Work Phone: [facility] [place] Comment on above: 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, without long-term current use of insulin (HCC) (Primary Dx) Start: 11-04-2023 Refill Kierra adler MD Work Phone: [facility] [place] Comment on above: Refill Request Start: 10-24-2023 End: 10-24-2023 Subsequent hospital visit by physician [facility] ([facility]) Work Phone: Cat Scan Comment on above: Lung nodules [R91.8] Start: 10-13-2023 End: 10-13-2023 Anticoagulant drug monitoring [facility] Work Phone: [facility] [place] Comment on above: Factor V deficiency (HCC) (Primary Dx) Start: 10-12-2023 End: 10-12-2023 Nursing evaluation of patient and report Suresh Varela RN Work Phone: Endocrinology Comment on above: Uncontrolled type 2 diabetes mellitus with hyperglycemia (HCC) Start: 10-11-2023 Telephone encounter Joshua Koch MD Work Phone: [facility] [place] Comment on above: high blood sugars Patient Update Start: 10-10-2023 End: 10-10-2023 Office outpatient visit 25 minutes Anastasiia Colón APRN.STUDENT EDUCATION SPECIALIST Work Phone: [facility] [place] Comment on above: Chest pain, unspecif ied type (Primary Dx); Lung nodules; Transaminitis; Atrial fibrillation, unspecified type (HCC); Type 2 diabetes mellitus with hyperglycemia, without long-term current use of insulin (HCC); Factor 5 Leiden mutation, heterozygous (HCC); Mid back pain on left side Start: 10-05-2023 Refill Kierra adler MD Work Phone: [facility] [place] Comment on above: Refill Request Start: 10-04-2023 End: 10-04-2023 Patient encounter procedure Mary Kay Delgado DO Work Phone: Vascular Surgery Comment on above: Bilateral carotid ar jaime stenosis (Primary Dx) Start: 09-23-2023 End: 09-23-2023 Patient encounter procedure Nataliia Rehman APRN.PURCHASING ADMINISTRATOR Work Phone: [facility] Comment on above: Left arm numbness (P rimary Dx) Start: 09-15-2023 End: 09-15-2023 [facility] [place] Comment on above: Factor V deficiency (HCC) (Primary Dx) Start: 08-18-2023 End: 08-18-2023 [facility] [place] Comment on above: Factor V deficiency (HCC) (Primary Dx) Start: 07-21-2023 Telephone encounter Kierra taylor MD Work Phone: [facility] [place] Comment on above: Orders (protime) Start: 07-21-2023 End: 07-21-2023 Anticoagulant drug monitoring [facility] Work Phone: [facility] [place] Comment on above: Factor V deficiency (HCC) (Primary Dx) Start: 07-14-2023 Refill Kierra adler MD Work Phone: [facility] [place] Comment on above: Refill Request Start: 06-30-2023 End: 06-30-2023 Anticoagulant drug monitoring [facility] Work Phone: [facility] [place] Comment on above: Factor V deficiency (HCC) (Primary Dx) Start: 06-16-2023 End: 06-16-2023 Anticoagulant drug monitoring [facility] Work Phone: [facility] [place] Comment on above: Factor V deficiency (HCC) [...] Start: 06-02-2023 End: 06-02-2023 Anticoagulant drug monitoring [facility] Work Phone: [facility] [place] Comment on above: Factor V deficiency (HCC) (Primary Dx) Start: 05-02-2023 ambulatory Alice Mcneill RN NURSE O N CALL Comment on above: Pain, Sinus Start: 03-30-2023 End: 03-30-2023 Anticoagulant drug monitoring [facility] Work Phone: [facility] [place] Comment on above: Factor V deficiency (HCC) (Primary Dx) Start: 03-15-2023 End: 03-15-2023 Office outpatient visit 25 minutes Lelo Sood APRN.PURCHASING ADMINISTRATOR Work Phone: Vascular Surgery Comment on above: Bilateral carotid ar jaime stenosis (Primary Dx); Primary hypertension; Elevated HDL; Factor 5 Leiden mutation, heterozygous (HCC) Start: 02-24-2023 End: 02-24-2023 Anticoagulant drug monitoring [facility] [place] Comment on above: Factor V deficiency (HCC) (Primary Dx) Start: 02-15-2023 Telephone encounter Kierra taylor MD Work Phone: [facility] [place] Comment on above: Info for diabetic sh oes Start: 02-04-2023 End: 02-04-2023 Office outpatient visit 40 minutes Kierra Santiago MD Work Phone: [facility] [place] Comment on above: 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, without long-term current use of insulin (HCC) (Primary Dx); Stenosis of carotid artery, unspecified laterality; History of carotid endarterectomy; Primary hypertension; Factor V deficiency (HCC); Encounter for long-term current use of medication; Mixed hyperlipidemia; Chronic cough; Need for influenza vaccination; Encounter for immunization Start: 01-27-2023 End: 01-27-2023 Anticoagulant drug monitoring [facility] [place] Comment on above: Factor V deficiency (HCC) (Primary Dx) Start: 01-20-2023 End: 01-20-2023 Anticoagulant drug monitoring [facility] Work Phone: [facility] [place] Comment on above: Factor V deficiency (HCC) (Primary Dx) Start: 01-05-2023 Refill Kierra adler MD Work Phone: [facility] [place] Comment on above: Refill Request Start: 12-22-2022 End: 12-22-2022 Patient encounter procedure Sheryl Reyes APRN.CNP Work Phone: [facility] [place] Comment on above: Stress and adjustmen t reaction (Primary Dx); Sleep disturbance; Type 2 diabetes mellitus with diabetic polyneuropathy, without long-term current use of insulin (HCC) Start: 12-20-2022 Telephone encounter Kierra taylor MD Work Phone: [facility] [place] Comment on above: Patient Question (He r 3 mo appointment) Refill Request Start: 12-16-2022 End: 12-16-2022 Anticoagulant drug monitoring [facility] Work Phone: [facility] [place] Comment on above: Factor V deficiency (HCC) (Primary Dx) Start: 12-02-2022 ambulatory Kierra adler MD Work Phone: [facility] Comment on above: Allied Health Visit (Medication Adherence Outreach/) Start: 12-01-2022 End: 12-01-2022 Patient encounter procedure Pal Johnson MD Work Phone: Vascular Surgery Comment on above: Carotid stenosis, as ymptomatic, bilateral (Primary Dx) Start: 11-22-2022 End: 11-22-2022 Subsequent hospital visit by physician [facility] ([facility]) Work Phone: Cat Scan Comment on above: Lung nodules [R91.8] Start: 11-18-2022 End: 11-18-2022 Anticoagulant drug monitoring [facility] Work Phone: [facility] [place] Comment on above: Factor V deficiency (HCC) (Primary Dx) Start: 10-28-2022 End: 10-28-2022 Anticoagulant drug monitoring [facility] Work Phone: [facility] [place] Comment on above: Factor V deficiency (HCC) Start: 10-12-2022 End: 10-12-2022 Patient encounter procedure Mary Kay Delgado DO Work Phone: Vascular Surgery Comment on above: Stenosis of carotid artery, unspecified laterality; History of carotid endarterectomy; History of transient ischemic attack (TIA); Stenosis of left carotid artery Start: 10-12-2022 End: 10-12-2022 Subsequent hospital visit by physician [facility] ([facility]) Work Phone: Cat Scan Comment on above: Occlusion and stenos is of unspecified carotid artery [I65.29] Start: 09-30-2022 End: 09-30-2022 Anticoagulant drug monitoring [facility] Work Phone: [facility] [place] Comment on above: Factor V deficiency (HCC) Start: 08-31-2022 Telephone encounter Anastasiia vigil SUPERVISOR LABORATORY ANIMAL FACILITY.STUDENT EDUCATION SPECIALIST Work Phone: [facility] [place] Comment on above: Results Start: 08-24-2022 Telephone encounter Kierra taylor MD Work Phone: [facility] [place] Comment on above: Patient Question; An ticoagulation Start: 08-18-2022 End: 08-18-2022 Subsequent hospital visit by physician [facility] Work Phone: Radiology Comment on above: Screening for osteop orosis [Z13.820] Start: 08-10-2022 Telephone encounter Anastasiia vigil SUPERVISOR [employer]ORAT[employer]IM[employer] FACILITY.STUDENT EDUCATION SPECIALIST Work Phone: [facility] [place] Comment on above: Results (Carotid ult rasound) Start: 08-02-2022 Telephone encounter Anastasiia vigil SUPERVISOR [employer]ORAT[employer]IMAL FACILITY.STUDENT EDUCATION SPECIALIST Work Phone: [facility] [place] Comment on above: Anticoagulation Start: 08-02-2022 End: 08-02-2022 Office outpatient visit 15 minutes Anastasiia Colón SUPERVISOR [employer]AT[employer]IM[employer] FACILITY.STUDENT EDUCATION SPECIALIST Work Phone: [facility] [place] Comment on above: Type 2 diabetes mingo itus with hyperglycemia, without long-term current use of insulin (HCC) (Primary Dx); Encounter for immunization; Screening for diabetic retinopathy; Screening for osteoporosis; Asymptomatic menopause Start: 07-02-2022 Telephone encounter Anastasiia vigil SUPERVISOR LABORAT[employer]IMAL FACILITY.STUDENT EDUCATION SPECIALIST Work Phone: [facility] [place] Comment on above: Results Start: 07-01-2022 End: 07-01-2022 Office outpatient visit 25 minutes Anastasiia Colón SUPERVISOR [employer]ORAT[employer] FACILITY.STUDENT EDUCATION SPECIALIST Work Phone: [facility] [place] Comment on above: Routine medical exam (Primary [...] End: 07-01-2022 Patient encounter status Anastasiia Colón APRN.STUDENT EDUCATION SPECIALIST Work Phone: [facility] [place] Procedures Date Procedure Procedure Detail Performing Clinician Start: 01-22-2025 Coagulation time, activated Dr. Kierra taylor MD Work Phone: Start: 10-10-[address] Kierra Santiago MD Work Phone: Start: 10-10-[address] cell [address] Kierra holland MD Work Phone: Start: 10-09-[address] Kierra pérez MD Work Phone: Start: 10-09-2024 Blood disorder - initial assessment Dr. Kierra Santiago MD Work Phone: Start: 10-09-[address] Kierra Santiago MD Work Phone: Start: [...] Radiologic exam chest 2 views Jean Pierre Davis PA Work Phone: Start: 11-30-2023 Us abdominal real time w/image limited Rula Benavides SUPERVISOR LABORATORY ANIMAL FACILITY.PURCHASING ADMINISTRATOR Work Phone: Start: 11-14-2023 Echo tthrc r-t 2d w/wo m-mode complete rest&st Anastasiia Colón SUPERVISOR [employer]ORAT[employer]IMAL FACILITY.STUDENT EDUCATION SPECIALIST Work Phone: Start: 11-14-2023 Adult depression screening assessment E[facility] Work Phone: Start: 02-04-2023 [place] COVID-19 VACCINE (2022- SEASON) AGE 12+ YR Kierra Santiago MD [...] study 1/> sites axial skel Anastasiia Colón APRN.STUDENT EDUCATION SPECIALIST Work Phone: History of carotid endarterectom y History of carotid endarterectomy Anastasiia Colón APRN.STUDENT EDUCATION SPECIALIST Work Phone: History of carotid endarterectom y History of carotid endarterectomy Anastasiia Colón APRN.STUDENT EDUCATION SPECIALIST Work Phone: History of carotid endarterectom y History of carotid endarterectomy Mary Kay Delgado DO Work Phone: History of carotid endarterectom y History of carotid endarterectomy Kierra Santiago MD Work Phone: Plan of Treatment Date Care Activity Detail Author Start: 10-16-2033 Urine microalbumin profile DTaP,Tdap,Td Vaccine (2 - Td or Tdap) [facility] Start: 12-06-2025 Glaucoma screening Dilated Retinal Exam [facility] Start: 01-29-2025 End: 01-29-2025 Patient encounter procedure 01/29/2025 10:00 AM EDT Office Visit [facility] [place] [address] [place] [address] Kierra Santiago MD [address] [place] [address] 6 month f/u [facility] [place] Comment on above: 6 month f/u Start: 01-23-2025 Patient discharge [facility] Start: 01-23-2025 [facility] Start: 01-22-2025 Prothrombin time [facility] Start: 01-22-2025 Following clinical pathway protocol [facility] Start: 01-22-2025 Ambulation without limitation [facility] Start: 01-22-2025 Assessment of risk of venous thromboembolism [facility] Start: 01-22-2025 Cardiac monitoring [facility] Start: 01-22-2025 Care regimes management [facility] Start: 01-22-2025 Catheterization of vein [facility] Start: 01-22-2025 Continuous pulse oximetry [facility] Start: 01-22-2025 Deep breathing and coughing exercises [facility] Start: 01-22-2025 Dietary regime [facility] Start: 01-22-2025 Incentive spirometry [facility] Start: 01-22-2025 Insertion of catheter into peripheral vein [facility] Start: 01-22-2025 Log roll [facility] Start: 01-22-2025 Measuring intake and output [facility] Start: 01-22-2025 Notification of physician [facility] Start: 01-22-2025 Oxygen therapy [facility] Start: 01-22-2025 Patient referral to dietitian [facility] Start: 01-22-2025 Providing care according to standard [facility] Start: 01-22-2025 Provision of activity privileges [facility] Start: 01-22-2025 Pulse taking [facility] Start: 01-22-2025 Referral for physical therapy [facility] Start: 01-22-2025 Referral to occupational therapist [facility] Start: 01-22-2025 Vital signs measurements [facility] Start: 01-22-2025 End: 01-22-2025 [facility] Start: 01-22-2025 End: 01-22-2025 Elevation of head of bed [facility] Start: 01-22-2025 Maintenance of invasive device [facility] Start: 01-22-2025 Admission procedure [facility] Start: 01-22-2025 Insertion of carotid artery stent Carotidstent (Left) [facility] Start: 01-17-2025 Hemoglobin A1c measurement HbA1C [facility] Start: 01-16-2025 End: 01-16-2025 Anticoagulant drug monitoring 01/16/2025 9:30 AM EDT Antico[facility] Visit [facility] [place] [address] [place] [address] Wstr, Anticoag [facility] [address] [facility] [place] [address] [facility]r [facility] Comment on above: inr Start: 12-31-2024 Influenza vaccination Influenza Vaccine (#1) [facility] Start: 12-27-2024 End: 12-27-2024 Anticoagulant drug monitoring 12/27/2024 10:00 AM EDT Anticoagulation Visit [facility] [place] [address] [place] [address] Wstr, Anticoag [facility] [address] [facility] [place] [address] inr Coumad[facility] Comment on above: inr Start: 12-26-2024 Hepatitis B screening Urine Albumin:Creatinine Ratio [facility] Start: 12-26-2024 Hepatitis B surface antibody level LDL Cholesterol [facility] Start: 12-20-2024 End: 12-20-2024 Anticoagulant drug monitoring 12/20/2024 9:30 AM EDT Anticoagulation Visit [facility] [place] [address] [place] [address] Wstr, Anticoag [facility] [address] [facility] [place] [address] inr Coumad[facility] Comment on above: inr Start: 12-13-2024 End: 12-13-2024 Evaluation of diagnostic study results [facility] Start: 12-06-2024 End: 12-06-2024 Anticoagulant drug monitoring 12/06/2024 9:45 AM EDT Anticoagulation Visit [facility] [place] [address] [place] [address] Wstr, Anticoag [facility] [address] [place] [address] inr [facility] [place] Comment on above: inr Start: 11-28-2024 End: 11-28-2024 Anticoagulant drug monitoring 11/28/2024 9:30 AM EDT Anticoagulation Visit [facility] [place] [address] [place] [address] [facility] [address] [place] [address] inr [facility]mad[facility] Comment on above: inr Start: 11-13-2024 Anxiety Screening Anxiety Screening [facility] Start: 11-13-2024 Depression Screening Depression Screening [facility] Start: 10-24-2024 End: 10-24-2024 Patient encounter procedure 10/24/2024 10:00 AM EDT Office Visit [facility] [place] [address] [place] [address] Kierra Santiago MD [address] [place] [address] [facility] 10/10/2024 Gi Bleed and Chest Pain [facility] [place] Comment on above: [facility] 10/10/2024 Gi Blee d and Chest Pain Start: 10-10-2024 Patient discharge [facility] Start: 10-09-2024 End: 10-09-2024 Anticoagulant drug monitoring 10/09/2024 9:45 AM EDT Anticoagulation Visit [facility] [place] [address] [place] [address] Wstr, Anticoag [facility] [address] [place] [address] inr [facility] [place] Comment on above: inr Start: 10-09-2024 [facility] Start: 10-08-2024 Application of intermittent pneumatic compression device [facility] Start: 10-08-2024 Prothrombin time [facility] Start: 10-08-2024 Following clinical pathway protocol [facility] Start: 10-08-2024 Transfusion of blood product [facility] Start: 10-08-2024 Assessment of risk of venous thromboembolism [facility] Start: 10-08-2024 Care regimes management [facility] Start: 10-08-2024 Fall prevention [facility] Start: 10-08-2024 Incentive spirometry [facility] Start: 10-08-2024 Inhalation therapy procedure [facility] Start: 10-08-2024 Insertion of catheter into peripheral vein [facility] Start: 10-08-2024 Introduction of urinary catheter [facility] Start: 10-08-2024 Measuring intake and output [facility] Start: 10-08-2024 Notification of physician [facility] Start: 10-08-2024 Oxygen therapy [facility] Start: 10-08-2024 Prothrombin time [facility] Start: 10-08-2024 Providing care according to standard [facility] Start: 10-08-2024 Provision of activity privileges [facility] Start: 10-08-2024 Referral for physical therapy [facility] Start: 10-08-2024 Referral to gastroenterology service [facility] Start: 10-08-2024 Referral to occupational therapist [facility] Start: 10-08-2024 Referral to service [facility] Start: 10-08-2024 End: 10-08-2024 [facility] Start: 10-07-2024 Verification routine [facility] Start: 10-07-2024 Admission procedure [facility] Start: 10-07-2024 Fresh frozen plasma [facility] Start: 10-07-2024 Leukocyte reduced red blood cells [facility] Start: 10-07-2024 [facility] Start: 10-07-2024 End: 10-07-2024 Administration of blood product [facility] Start: 10-07-2024 End: 10-08-2024 [facility] Start: 09-18-2024 Glaucoma screening Dilated Retinal Exam [facility] Start: 09-14-2024 Hepatitis B screening Urine Albumin:Creatinine Ratio [facility] Start: 09-14-2024 Hepatitis B surface antibody level LDL Cholesterol [facility] Start: 09-11-2024 End: 09-11-2024 Anticoagulant drug monitoring 09/11/2024 9:30 AM EDT Anticoagulation Visit [facility] [address] [place] [address] Wstr, Anticoag [facility] [address] [place] [address] inr [facility] [place] Comment on above: inr Start: 08-22-2024 Egd transoral biopsy single/multiple EGD BIOPSY SINGLE/MULTIPLE [facility] Start: 08-22-2024 Patient discharge [facility] Start: 08-21-2024 End: 08-21-2024 Anticoagulant drug monitoring 08/21/2024 9:45 AM EDT Anticoagulation Visit [facility] [place] [address] [place] [address] Wstr, Anticoag [facility] [address] [place] [address] inr [facility]mad[facility] Comment on above: inr Start: 08-17-2024 Hepatitis B surface antibody level LDL Cholesterol [facility] Start: 07-31-2024 End: 07-31-2024 Anticoagulant drug monitoring 07/31/2024 9:45 AM EDT Anticoagulation Visit [facility] [place] [address] [place] [address] Wstr, Anticoag [facility] [address] [place] [address] inr [facility] [place] Comment on above: inr Start: 07-29-2024 Covid-19 Vaccine () Covid-19 Vaccine () [facility] Start: 07-17-2024 End: 10-16-2024 Basic metabolic 2000 panel - Serum or Plasma [facility] Comment on above: Expected: 07/17/2024, Expires: Start: 07-17-2024 End: 10-16-2024 Hemoglobin A1c in Blood [facility] Work Phone: Comment on above: Expected: 07/17/2024, Expires: Start: 07-17-2024 End: 10-16-2024 TSH W/REFLEX FT4 [facility] Comment on above: Expected: 07/17/2024, Expires: Start: 07-17-2024 End: 07-17-2024 Anticoagulant drug monitoring 07/17/2024 11:00 AM EDT Anticoagulation Visit [facility] [address] [place] [address] Wstr, [facility] [address] [place] [address] inr - ok to check pt in when she arrives coming from appt with TB - mrg [facility] [place] Comment on above: inr - ok to check pt in when she arrives coming from appt with TB - mrg Start: 07-17-2024 End: 07-17-2024 Patient encounter procedure 07/17/2024 10:00 AM EDT Office Visit [facility] [place] [address] [place] [address] Anastasiia Colón APRN.STUDENT EDUCATION SPECIALIST [address] [place] [address] follow up [facility] [place] Comment on above: follow up Start: 07-05-2024 End: 07-05-2024 Anticoagulant drug monitoring 07/05/2024 9:45 AM EST Anticoagulation Visit [facility] [address] [place] [address] Wstr, [facility] [address] [place] [address] [facility] Comment on above: inr Start: 06-28-2024 Hemoglobin A1c measurement HbA1C [facility] Start: 06-28-2024 End: 06-28-2024 Anticoagulant drug monitoring 06/28/2024 9:30 AM EST Anticoagulation Visit [facility] [place] [address] [place] [address] Wstr, Anticoag [facility] [address] [place] [address] inr [facility] [place] Comment on above: inr Start: 06-12-2024 Patient referral [facility] Work Phone: Start: 06-06-2024 Hepatitis B surface antibody level LDL Cholesterol [facility] Start: 06-05-2024 End: 06-05-2024 Patient encounter procedure 06/05/2024 10:00 AM EST Office Visit Vascular Surgery [address] [place] [address] Mary Kay Delgado, DO [address] [place] [address] follow up after testing Vascular Surgery Comment on above: follow up after testing Start: 06-04-2024 End: 06-04-2024 Patient encounter procedure Cardiology Comment on above: 6 week follow uop Start: 05-18-2024 End: 05-18-2024 Patient encounter procedure 05/18/2024 9:20 AM EST Appointment Cat Scan [address] [place] [address] Occlusion and stenosis of unspecified carotid artery [...] Office Visit Cardiology [address] [place] [id number] Terrence Jane MD [address], [address] [place] [address] Atrial fibrillation, unspecified type (HCC) [I48.91]; Chest pain, unspecified type [R07.9] Cardiology Comment on above: Atrial fibrillation, unspecified type (H CC) [I48.91]; Chest pain, unspecified type [R07.9] Start: 05-02-2024 Advance Directive Discussion Advance Directive Discussion [facility] Start: 05-02-2024 Medicare Advantage Annual Wellness Visit Medicare Advantage Annual Wellness Visit [facility] Start: 04-30-2024 End: 04-23-2025 Echocardiography ECHO Cardiology Routine Aortic valve disorder Expected: 04/30/2024, Expires: 04/23/2025 [facility] Work Phone: Comment on above: Expected: 04/30/2024, Expires: Start: 04-23-2024 End: 04-23-2024 Patient encounter procedure 04/23/2024 3:00 PM EST Office Visit [facility] [address] [facility] [place] [id number] Terrence Jane MD [address], [address] [place] [address] Atrial fibrillation, unspecified type (HCC) [I48.91]; Chest pain, unspecified type [R07.9] Cardiology Comment on above: Atrial fibrillation, unspecified type (H CC) [I48.91]; Chest pain, unspecified type [R07.9] Start: 04-17-2024 End: 04-17-2024 Patient encounter procedure 04/17/2024 11:20 AM EST Office Visit [facility] [address] [place], [place] [id number] Anastasiia Colón APRN.STUDENT EDUCATION SPECIALIST [address] [place] [address] [facility] follow up Discharged on 04/08/24 [facility] Comment on above: [facility] follow up Discharged on 04/08/24 Start: 04-09-2024 Development of care plan [facility] Start: 04-08-2024 Patient discharge [facility] Start: 04-06-2024 [facility] Start: 04-05-2024 Referral to service [facility] Start: 04-04-2024 Egd transoral biopsy single/multiple EGD BIOPSY SINGLE/MULTIPLE [facility] Start: 04-04-2024 Patient discharge [facility] Start: 04-03-2024 [facility] Start: 04-03-2024 [facility] Start: 04-02-2024 Referral to gastroenterology service [facility] Start: 03-27-2024 Administration of blood product [facility] Start: 03-27-2024 [facility] Start: 03-27-2024 Administration of blood product [facility] Start: 03-27-2024 [facility] Start: 03-21-2024 Patient referral to dietitian [facility] Start: 03-20-2024 Development of care plan [facility] Start: 03-20-2024 Developing a treatment plan [facility] Start: 03-19-2024 Following clinical pathway protocol [facility] Start: 03-19-2024 Contact precautions [facility] Start: 03-19-2024 Consultation for treatment [facility] Start: 03-19-2024 Referral to animal care provider [facility] Start: 03-19-2024 Referral to vascular surgeon [facility] Start: 03-19-2024 Wound care [facility] Start: 03-19-2024 Provision of activity privileges [facility] Start: 03-19-2024 Admission procedure [facility] Start: 03-19-2024 Introduction of urinary catheter [facility] Start: 03-19-2024 Measuring intake and output [facility] Start: 03-19-2024 Patient referral to dietitian [facility] Start: 03-19-2024 Referral to occupational therapist [facility] Start: 03-19-2024 Referral to service [facility] Start: 03-19-2024 Vital signs measurements [facility] Start: 03-19-2024 End: 03-19-2024 [facility] Start: 03-12-2024 End: 03-12-2024 Patient encounter procedure [facility] [place] Comment on above: 2 month follow up 2 month follow up, A nxiety and Depression. See TE from 02/29/24. Start: 03-08-2024 End: 03-08-2024 Anticoagulant drug monitoring 03/08/2024 9:00 AM EST Anticoagulation Visit [facility] [place] [address] [place] [address] Wstr, Anticoag Formerly [facility] [address] [facility] [place] [address] inr [facility] Comment on above: inr Start: 03-01-2024 End: 03-01-2024 Anticoagulant drug monitoring 03/01/2024 10:15 AM EDT Anticoagulation Visit [facility] [place] [address] [place] [address] Wstr, Anticoag [facility] [address] [facility] [place] [address] inr - ok to check pt in when she arrives coming from [facility] Comment on above: inr - ok to check pt in when she arrives coming from [facility] Start: 02-27-2024 End: 02-27-2024 Anticoagulant drug monitoring 02/27/2024 9:45 AM EDT Anticoagulation Visit [facility] [address] [place] [address] [facility] [address] [facility] [place] [address] INR - transitioning off Lovenox [facility] Comment on above: INR - transitioning off Lovenox Start: 02-23-2024 End: 05-24-2024 CBC W Auto Differential panel - Blood [facility] Comment on above: Expected: 02/23/2024, Expires: Start: 02-23-2024 End: 05-24-2024 Comprehensive metabolic 2000 panel - Serum or Plasma [facility] Comment on above: Expected: 02/23/2024, Expires: Start: 02-23-2024 End: 05-24-2024 PT panel - Platelet poor plasma by Coagulation assay PROTHROMBIN TIME Lab Routine Factor 5 Leiden mutation, heterozygous (HCC) Expected: 02/23/2024, Expires: 05/24/2024 [facility] Work Phone: Comment on above: Expected: 02/23/2024, Expires: Start: 02-06-2024 End: 02-06-2024 Patient encounter procedure 02/06/2024 9:20 AM EDT Office Visit [facility] [place] [address] [place] [address] Anastasiia Colón APRN.STUDENT EDUCATION SPECIALIST [address] [place] [address] 4 month follow up [facility] [place] Comment on above: 4 month follow up Start: 01-19-2024 End: 01-19-2024 Anticoagulant drug monitoring 01/19/2024 11:30 AM EDT Anticoagulation Visit [facility] [place] [address] [place] [address] Wstr, Anticoag [facility] [address] [place] [address] inr [facility] Comment on above: inr Start: 01-11-2024 End: 01-11-2024 Patient encounter procedure 01/11/2024 4:00 PM EDT Office Visit [facility] [address] [place] [address] Kierra Santiago MD [address] [place] [address] 3 month f/u [facility] [place] Comment on above: 3 month f/u Start: 01-05-2024 End: 01-05-2024 Anticoagulant drug monitoring 01/05/2024 9:15 AM EDT Anticoagulation Visit [facility] [place] [address] [place] [address] Wstr, Anticoag [facility] [address] [facility] [place] [address] inr [facility]mad[facility] Comment on above: inr Start: 01-01-2024 Covid-19 Vaccine ( season) Covid-19 Vaccine () [facility] Start: 01-01-2024 Influenza vaccination Influenza Vaccine (#1) [facility] Start: 12-27-2023 End: 03-27-2024 Microalbumin/Creatinine [Mass Ratio] in Urine [facility] Work Phone: Comment on above: Expected: 12/27/2023, Expires: 4 Start: 12-16-2023 Hemoglobin A1c measurement HbA1C [facility] Start: 12-12-2023 Shingrix Vaccine (2 of 2) Shingrix Vaccine (2 of 2) [facility] Start: 12-11-2023 End: 12-25-2023 COVID & INFLUENZA A/B & RSV NAAT, ROUTINE COVID & INFLUENZA A/B & RSV NAAT, ROUTINE Microbiology Routine Acute cough URI, acute Expected: 12/11/2023, Expires: 12/25/2023 [facility] Work Phone: Comment on above: Expected: 12/11/2023, Expires: 4 Start: 12-08-2023 End: 12-08-2023 Anticoagulant drug monitoring 12/08/2023 9:15 AM EDT [facility] [address] [place] [address] [facility] [address] [place] [address] inr [facility]mad[facility] Comment on above: inr Start: 12-05-2023 Hemoglobin A1c measurement HbA1C [facility] Start: 11-30-2023 Hepatitis B surface antibody level LDL CHOLESTEROL [facility] Start: 11-30-2023 End: 11-30-2023 Patient encounter procedure 11/30/2023 7:45 AM EDT Appointment Radiology [address] [place] [address] elevated alanine aminotransferase (ALT) Radiology Comment on above: elevated alanine aminotransferase (ALT) Start: 11-18-2023 End: 02-17-2024 Chronic hepatitis differentiation between hepatitis B and C virus panel - Serum or Plasma HEP REMOTE PANEL BL Lab Routine Elevated alanine aminotransferase (ALT) level Expected: 11/18/2023, Expires: 02/17/[address] [facility] Comment on above: Expected: 11/18/2023, Expires: Start: 11-18-2023 End: 02-17-2024 Hepatic function 2000 panel - Serum or Plasma HEPATIC FUNCTION PNL Lab Routine Elevated alanine aminotransferase (ALT) level Expected: 11/18/2023, Expires: 02/17/[address] [facility] Comment on above: Expected: 11/18/2023, Expires: Start: 11-18-2023 End: 11-18-2023 Patient encounter procedure 11/18/2023 11:20 AM EDT Office Visit Gastroenterology [facility] [address] [place] [address] Rula Benavides, SHANNAN.PURCHASING ADMINISTRATOR [address] [place] [address] Transaminitis [R74.01] Gastroenterology [facility] Comment on above: Transaminitis [R74.01] Start: 11-17-2023 Hemoglobin A1c measurement HbA1C [facility] Start: 11-14-2023 End: 11-14-2023 Patient encounter procedure 11/14/2023 1:50 PM EDT Office Visit Cardiology [address] [place] [address] Wstr, Nurse Card Admin [facility] [address] [place] [id number] Chest pain, unspecified type [R07.9] Cardiology Comment on above: Chest pain, unspecified type [R07.9] Start: 11-14-2023 End: 11-14-2023 Patient encounter procedure 11/14/2023 9:40 AM EDT Office Visit [facility] [address] [place] [address] Anastasiia Colón APRN.STUDENT EDUCATION SPECIALIST [address] [place] [address] follow up [facility] [place] Comment on above: follow up Start: 11-13-2023 End: 02-12-2024 Basic metabolic 2000 panel - Serum or Plasma BASIC METABOLIC PANEL Lab Routine Type 2 diabetes mellitus with diabetic polyneuropathy, without long-term current use of insulin (HCC) Expected: 11/13/2023 (Approximate), Expires: 02/12/2024 [facility] Work Phone: Comment on above: Expected: 11/13/2023 (Approximate), Expi res: 02/12/2024 Start: 11-10-2023 End: 11-10-2023 Anticoagulant drug monitoring 11/10/2023 9:15 AM EDT Anticoagulation Visit [facility] [place] [address] [place] [address] Wstr, Anticoag [facility] [address] [place] [address] inr [facility] [place] Comment on above: inr Start: 10-24-2023 End: 10-24-2023 Patient encounter procedure 10/24/2023 3:40 PM EDT Appointment Cat Scan [address] [place] [address] Lung nodules [R91.8] Cat Scan Comment on above: Lung nodules [R91.8] Start: 10-18-2023 End: 01-17-2024 Basic metabolic 2000 panel - Serum or Plasma BASIC METABOLIC PANEL Lab Routine Uncontrolled type 2 diabetes mellitus with hyperglycemia (HCC) Hyponatremia Expected: 10/18/2023 (Approximate), Expires: 01/17/2024 [facility] Work Phone: Comment on above: Expected: 10/18/2023 (Approximate), Expi res: 01/17/2024 Start: 10-13-2023 End: 10-13-2023 Anticoagulant drug monitoring 10/13/2023 9:00 AM EDT Anticoagulation Visit [facility] [address] [place] [address] Wstr, Anticoag [facility] [address] [place] [address] inr [facility] Comment on above: inr Start: 10-12-2023 End: 10-12-2023 Nursing evaluation of patient and report 10/12/2023 2:00 PM EDT Nurse Visit Endocrinology [address] [place] [address] Suresh Varela, RN [address] [id number] Uncontrolled type 2 diabetes mellitus with hyperglycemia (HCC) [E11.65] Endocrinology Comment on above: Uncontrolled type 2 diabetes mellitus wi th hyperglycemia (HCC) [E11.65] Start: 10-10-2023 End: 01-09-2024 Comprehensive metabolic 2000 panel - Serum or Plasma [facility] Comment on above: Expected: 10/10/2023, Expires: Start: 10-10-2023 End: 10-10-2023 Patient encounter procedure 10/10/2023 11:40 AM EDT Office Visit [facility] [place] [address] [place] [address] Anastasiia Colón APRN.STUDENT EDUCATION SPECIALIST [address] [place] [address] 4 month follow up [facility] [place] Comment on above: 4 month follow up Start: 10-07-2023 End: 10-07-2023 Patient encounter procedure 10/07/2023 10:40 AM EDT Office Visit [facility] [place] [address] [place] [address] Kierra Santiago MD [address] [place] [address] 4 month follow up [facility] [place] Comment on above: 4 month follow up Start: 10-04-2023 End: 10-04-2023 Patient encounter procedure 10/04/2023 9:30 AM EDT Office Visit Vascular Surgery [address] [place] [address] Mary Kay Delgado, DO [address] [place] [address] 6 MONTH FOLLOW UP WITH CAROTID TESTING [...] insulin (HCC) Expected: 09/30/2023 (Approximate), Expires: 06/01/2024 [facility] Work Phone: Comment on above: [...] insulin (HCC) Expected: 09/30/2023 (Approximate), Expires: 06/01/2024 [facility] Work Phone: Comment on above: [...] insulin (HCC) Expected: 09/30/2023 (Approximate), Expires: 06/01/2024 [facility] Work Phone: Comment on above: Expected: 09/30/2023 (Approximate), Expi res: 06/01/2024 Start: 09-30-2023 End: 06-01-2024 Hemoglobin A1c in Blood HGB A1C Lab Routine Peripheral vascular disease, unspecified (HCC) Type 2 diabetes mellitus with hyperglycemia, without long-term current use of insulin (HCC) Type 2 diabetes mellitus with diabetic polyneuropathy, without long-term current use of insulin (HCC) Expected: 09/30/2023 (Approximate), Expires: 06/01/2024 [facility] Work Phone: Comment on above: [...] Mixed hyperlipidemia Expected: 09/30/2023 (Approximate), Expires: 06/01/2024 [facility] Work Phone: Comment on above: Expected: 09/30/2023 (Approximate), Expi res: 06/01/2024 Start: 09-30-2023 End: 06-01-2024 Thyrotropin [Units/volume] in Serum or Plasma TSH BLD Lab Routine Type 2 diabetes mellitus with hyperglycemia, without long-term current use of insulin (HCC) Type 2 diabetes mellitus with diabetic polyneuropathy, without long-term current use of insulin (HCC) Subclinical hypothyroidism Expected: 09/30/2023 (Approximate), Expires: 06/01/2024 [facility] Work Phone: Comment on above: Expected: 09/30/2023 (Approximate), Expi res: 06/01/2024 Start: 09-29-2023 End: 09-29-2023 Patient encounter procedure 09/29/2023 11:00 AM EDT Office Visit Vasculary Surgery [address] [place] [address] 6 MONTH FOLLOW UP WITH CAROTID TESTING [facility] Comment on above: 6 MONTH FOLLOW UP WITH CAROTID TESTING Start: 09-09-2023 Glaucoma screening Dilated Retinal Exam [facility] Start: 09-09-2023 Hepatitis C antibody, confirmatory test DILATED RETINAL EXAM [facility] Start: 08-26-2023 Hepatitis B surface antibody level LDL CHOLESTEROL [facility] Start: 08-10-2023 3 comp foot exam completed DIABETIC FOOT EXAM [facility] Start: 08-10-2023 Diabetic foot examination Diabetic Foot Exam [facility] Start: 08-03-2023 COVID-19 VACCINE (#1) COVID-19 VACCINE (#1) [facility] Comment on above: Postponed from 04/15/1941 (Declined at t his time) Start: 08-03-2023 Hepatitis B screening URINE ALBUMIN:CREATININE RATIO [facility] Start: 08-03-2023 Pneumococcal Vaccine: 65+ (1 - PCV) Pneumococcal Vaccine: 65+ (1 - PCV) [facility] Comment on above: Postponed from 10/14/1945 (Declined at t his time) Start: 08-03-2023 Pneumococcal Vaccine: 65+ (1 of 2 - PCV) Pneumococcal Vaccine: 65+ (1 of 2 - PCV) [facility] Comment on above: Postponed from 10/14/1945 (Declined at t his time) Start: 08-03-2023 PNEUMOCOCCAL: 65+ (1 - PCV) PNEUMOCOCCAL: 65+ (1 - PCV) [facility] Comment on above: Postponed from [birth year]/14/1945 (Declined at t his time) Start: 08-03-2023 SHINGRIX VACCINE (1 of 2) SHINGRIX VACCINE (1 of 2) [facility] Comment on above: Postponed from 10/14/1989 (Declined at t his time) Start: 08-03-2023 Urine microalbumin profile [facility] Comment on above: Postponed from 10/14/1958 (Declined at t his time) Start: 07-02-2023 Hepatitis B surface antibody level LDL CHOLESTEROL [facility] Start: 06-07-2023 Covid-19 Vaccine ( season) Covid-19 Vaccine () [facility] Start: 06-01-2023 Hemoglobin A1c measurement HbA1C [facility] Start: 06-01-2023 Hemoglobin A1c/Hemoglobin.total in Blood HBA1C [facility] Start: 05-02-2023 Advance Directive Discussion Advance Directive Discussion [facility] Start: 05-02-2023 Behavioral Health Screening Behavioral Health Screening [facility] Start: 05-02-2023 Depression Assessment Depression Assessment [facility] Start: 01-01-2023 Hemoglobin A1c/Hemoglobin.total in Blood HBA1C [facility] Start: 12-31-2022 Influenza vaccination [facility] Start: 11-19-2022 End: 08-29-2023 Hemoglobin A1c in Blood HGB A1C Lab Routine Type 2 diabetes mellitus with hyperglycemia, without long-term current use of insulin (HCC) Expected: 11/19/2022 (Approximate), Expires: 08/29/2023 [facility] Work Phone: Comment on above: Expected: 11/19/2022 (Approximate), Expi res: 08/29/2023 Start: 11-19-2022 End: 08-29-2023 Lipid 1996 panel - Serum or Plasma LIPID PANEL BASIC Lab Routine High triglycerides Expected: 11/19/2022 (Approximate), Expires: 08/29/2023 [facility] Work Phone: Comment on above: Expected: 11/19/2022 (Approximate), Expi res: 08/29/2023 Start: 08-29-2022 3 comp foot exam completed DIABETIC FOOT EXAM [facility] Comment on above: Postponed from [birth year]14/1949 (Postponed To Appropriate Date) Start: 08-10-2022 End: 10-10-2022 Lipid 1996 panel - Serum or Plasma LIPID PANEL BASIC Lab Routine Stenosis of carotid artery, unspecified laterality History of carotid endarterectomy History of transient ischemic attack (TIA) Stenosis of left carotid artery Expected: 08/10/2022, Expires: 10/10/2022 [facility] Work Phone: Comment on above: Expected: 08/10/2022, Expires: Start: 08-02-2022 End: 10-02-2022 ALBUMIN/CREAT RATIO RND UR [facility] Work Phone: Comment on above: Expected: 08/02/2022, Expires: Start: 05-02-2022 ADVANCE DIRECTIVE DISCUSSION ADVANCE DIRECTIVE DISCUSSION [facility] Start: 05-02-2022 DEPRESSION ASSESSMENT DEPRESSION ASSESSMENT [facility] Start: 12-31-2021 Influenza vaccination INFLUENZA (#1) [facility] Start: 10-14-2014 RSV Vaccine (1 - 1-dose 75+ series) RSV Vaccine (1 - 1-dose 75+ series) [facility] Start: 10-14-2004 BONE DENSITY BONE DENSITY [facility] Start: 1999 Hepatitis B Vaccine (1 of 3 - Risk 3-dose series) Hepatitis B Vaccine (1 of 3 - Risk 3-dose series) [facility] Start: 1999 RSV Vaccine (1 - 1-dose 60+ series) RSV Vaccine (1 - 1-dose 60+ series) [facility] Start: 10-14-1989 SHINGRIX VACCINE (1 of 2) SHINGRIX VACCINE (1 of 2) [facility] Start: 10-14-1958 Urine microalbumin profile [facility] Start: 10-14-1949 3 comp foot exam completed DIABETIC FOOT EXAM [facility] Start: 10-14-1949 Hepatitis B screening URINE ALBUMIN:CREATININE RATIO [facility] Start: 10-14-1949 Hepatitis C antibody, confirmatory test DILATED RETINAL EXAM [facility] Start: 10-14-1945 Pneumococcal Vaccine: 65+ (1 of 2 - PCV) Pneumococcal Vaccine: 65+ (1 of 2 - PCV) [facility] Start: 10-14-1945 PNEUMOCOCCAL: 65+ (1 - PCV) PNEUMOCOCCAL: 65+ (1 - PCV) [facility] Start: 04-15-1940 COVID-19 VACCINE (#1) COVID-19 VACCINE (#1) [facility] Alanine aminotransfe rase [Enzymatic activity/volume] in Serum or Plasma [facility] Albumin [Mass/volume ] in Serum or Plasma [facility] Alkaline phosphatase [Enzymatic activity/volume] in Serum or Plasma [facility] Anion gap in Serum o r Plasma [facility] Ankle brachial press ure index [facility] Bilirubin, total measurement [facility] BUN/Creatinine ratio [facility] Calcium [Mass/volume ] in Serum or Plasma [facility] Carbon dioxide, tota l [Moles/volume] in Central venous blood [facility] End: 02-04-2024 CBC panel - Blood by Automated count CBC Lab Routine Type 2 diabetes mellitus with diabetic polyneuropathy, without long-term current use of insulin (HCC) Primary hypertension Encounter for long-term current use of medication Every 3 months for 4 Occurrences starting 02/04/2023 until 02/04/2024 [facility] Work Phone: Comment on above: Every 3 months for 4 Occurrences startin g 02/04/2023 until 02/04/2024 Cholesterol [Mass/volume] in Serum or Plasma [facility] Cholesterol in HDL [Mass/volume] in Serum or Plasma [facility] End: 02-04-2024 Comprehensive metabolic 2000 panel - Serum or Plasma COMP METABOLIC PANEL Lab Routine Type 2 diabetes mellitus with diabetic polyneuropathy, without long-term current use of insulin (HCC) Primary hypertension Encounter for long-term current use of medication Every 3 months for 4 Occurrences starting 02/04/2023 until 02/04/2024 [facility] Work Phone: Comment on above: Every 3 months for 4 Occurrences startin g 02/04/2023 until 02/04/2024 Creatinine [Mass/vol ume] in Serum or Plasma [facility] CT Chest WO contrast CT CHEST WO IVCON Radiology Routine Lung nodules 10/24/2023 3:51 PM EDT [facility] Work Phone: End: 11-08-2024 CT Chest WO contrast CT CHEST WO IVCON Radiology Routine Lung nodules 1 Occurrences starting 10/10/2023 until 11/08/2024 [facility] Work Phone: Comment on above: 1 Occurrences starting 10/10/2023 until 11/08/2024 End: 06-07-2025 CT Neck W contrast IV CTA NECK W IVCON Radiology Routine Occlusion and stenosis of unspecified carotid artery 1 Occurrences starting 05/08/2024 until 06/07/[address] [facility] Comment on above: 1 Occurrences starting 05/08/2024 until 06/07/2025 End: 06-07-2025 CTA Head Arteries W contrast IV CTA HEAD W IVCON Radiology Routine Occlusion and stenosis of unspecified carotid artery 1 Occurrences starting 05/08/2024 until 06/07/2025 [facility] Work Phone: Comment on above: 1 Occurrences starting 05/08/2024 until 06/07/2025 CTA Head vessels and Neck vessels W contrast IV [facility] [facility] End: 09-01-2023 DXA-AXIAL SKELETON DXA-AXIAL SKELETON Radiology Routine Screening for osteoporosis Asymptomatic menopause 1 Occurrences starting 08/02/2022 until 09/01/2023 [facility] Work Phone: Comment on above: 1 Occurrences starting 08/02/2022 until 09/01/2023 Erythrocyte mean corpuscular volume determination [facility] Glucose [Mass/volume ] in Serum or Plasma [facility] Hematocrit [Volume Fraction] of Blood [facility] Hematocrit [Volume Fraction] of Blood [facility] Hemoglobin [Mass/vol ume] in Blood [facility] Hemoglobin [Mass/vol ume] in Blood [facility] End: 02-04-2024 Hemoglobin A1c in Blood HGB A1C Lab Routine Type 2 diabetes mellitus with diabetic polyneuropathy, without long-term current use of insulin (HCC) Encounter for long-term current use of medication Every 3 months for 4 Occurrences starting 02/04/2023 until 02/04/2024 [facility] Work Phone: Comment on above: Every 3 months for 4 Occurrences startin g 02/04/2023 until 02/04/2024 INR in Blood by Coagulation assay [facility] INR in Blood by Coagulation assay [facility] End: 07-01-2023 INR in Platelet poor plasma by Coagulation assay INR (POC) Lab Routine Factor V deficiency (HCC) Every other week for 99 Occurrences starting 07/01/2022 until 07/01/2023 [facility] Work Phone: Comment on above: Every other week for 99 Occurrences star ting 07/01/2022 until 07/01/2023 End: 07-20-2024 INR in Platelet poor plasma by Coagulation assay INR (POC) Lab Routine Factor V deficiency (HCC) Once per month for 99 Occurrences starting 07/21/2023 until 07/20/2024 [facility] Work Phone: Comment on above: Once per month for 99 Occurrences starti ng 07/21/2023 until 07/20/2024 End: 07-31-2025 INR in Platelet poor plasma by Coagulation assay INR (POC) Lab Routine Factor V deficiency (HCC) Once per month for 99 Occurrences starting 07/31/2024 until 07/31/2025 [facility] Work Phone: Comment on above: Once per month for 99 Occurrences starti ng 07/31/2024 until 07/31/2025 Leukocytes [#/volume ] in Blood [facility] End: 02-04-2024 Lipid 1996 panel - Serum or Plasma LIPID PANEL BASIC Lab Routine Encounter for long-term current use of medication Mixed hyperlipidemia Every 3 months for 4 Occurrences starting 02/04/2023 until 02/04/2024 [facility] Work Phone: Comment on above: Every 3 months for 4 Occurrences startin g 02/04/2023 until 02/04/2024 Low density lipoprot ein cholesterol measurement [facility] Mean corpuscular hemoglobin concentration determination [facility] Mean corpuscular hemoglobin determination [facility] Measurement of renal function [facility] Neutrophil count [facility] Neutrophil percent differential count [facility] Patient referral [facility] Work Phone: [employer] COVI D-19 VACCINE ( SEASON) AGE 12+ YR [employer] COVID-19 VACCINE () AGE 12+ YR Immunization/Injection Routine Encounter for immunization 1 Occurrences starting 11/14/[address] [facility] Comment on above: 1 Occurrences starting 11/14/2023 Platelets [#/volume] in Blood [facility] Pneumococcal vaccination PNEUMOC OCCAL VACCINE, 20 VALENT (PREVNAR 20) Immunization/Injection Routine Encounter for immunization 1 Occurrences starting 11/14/2023 [facility] Work Phone: Comment on above: 1 Occurrences starting 11/14/[address] [facility] End: 07-01-2023 PT panel - Platelet poor plasma by Coagulation assay PROTHROMBIN TIME/PT Lab Routine Factor V deficiency (HCC) Every other week for 99 Occurrences starting 07/01/2022 until 07/01/2023 [facility] Work Phone: Comment on above: Every other week for 99 Occurrences star ting 07/01/2022 until 07/01/2023 End: 07-20-2024 PT panel - Platelet poor plasma by Coagulation assay PROTHROMBIN TIME/PT Lab STAT Factor V deficiency (HCC) Once per month for 99 Occurrences starting 07/21/2023 until 07/20/2024 [facility] Work Phone: Comment on above: Once per month for 99 Occurrences starti ng 07/21/2023 until 07/20/2024 End: 07-31-2025 PT panel - Platelet poor plasma by Coagulation assay PROTHROMBIN TIME Lab STAT Factor V deficiency (HCC) Once per month for 99 Occurrences starting 07/31/2024 until 07/31/[address] [facility] Comment on above: Once per month for 99 Occurrences starti ng 07/31/2024 until 07/31/2025 Red blood cell count [facility] Red cell distributio n width determination [facility] Serum chloride measurement [facility] Sodium measurement [facility] End: 10-09-2024 STRESS ECHO TREADMILL STRESS ECHO TREADMILL Cardiology Routine Chest pain, unspecified type 1 Occurrences starting 10/10/2023 until 10/09/[address] [facility] Comment on above: 1 Occurrences starting 10/10/2023 until 10/09/2024 Total cholesterol:HD L ratio measurement [facility] Total protein measurement [facility] Triglycerides measurement [facility] Troponin T.cardiac [Mass/volume] in Serum or Plasma by High sensitivity method [facility] Urea nitrogen [Mass/volume] in Serum or Plasma [facility] End: 12-17-2024 US Abdomen RUQ US ABD RIGHT UPPER QUADRANT Radiology Routine Elevated alanine aminotransferase (ALT) level 1 Occurrences starting 11/18/2023 until 12/17/2024 [facility] Work Phone: Comment on above: 1 Occurrences starting 11/18/2023 until 12/17/2024 End: 10-03-2024 US Carotid arteries - bilateral US CAROTID ARTERIES [facility] Vascular Lab Routine Bilateral carotid artery stenosis 1 Occurrences starting 10/04/2023 until 10/03/2024 [facility] Work Phone: Comment on above: 1 Occurrences starting 10/04/2023 until 10/03/2024 End: 07-02-2023 US CAROTID [facility]ERIES [facility] US CAROTID [facility]ERIES [facility] V[facility] Lab Routine Stenosis of carotid artery, unspecified laterality History of carotid endarterectomy 1 Occurrences starting 07/01/2022 until 07/02/2023 [facility] Work Phone: Comment on above: 1 Occurrences starting 07/01/2022 until 07/02/2023 End: 12-02-2023 US CAROTID [facility]ERIES [facility] US CAROTID ARTERIES [facility] Vascular Lab Routine Carotid stenosis, asymptomatic, bilateral 1 Occurrences starting 12/01/2022 until 12/02/2023 [facility] Work Phone: Comment on above: 1 Occurrences starting 12/01/2022 until 12/02/2023 End: 03-15-2024 US CAROTID ARTERIES [facility] US CAROTID ARTERIES [facility] V[facility] Lab Routine Bilateral carotid artery stenosis 1 Occurrences starting 03/15/2023 until 03/15/2024 [facility] Work Phone: Comment on above: 1 Occurrences starting 03/15/2023 until 03/15/2024 US Lower extremity artery [facility] VLDL cholesterol measurement [facility] End: 01-09-2025 XR Chest PA and Lateral XR CHEST 2V FRONTAL/LAT Radiology STAT Acute cough 1 Occurrences starting 12/11/2023 until 01/09/[address] [facility] Comment on above: 1 Occurrences starting 12/11/2023 until 01/09/2025 [facility] Immunizations Immunization Date Immunization Notes Care Provider Lamar moreira 05-08-2024 respiratory syncytia l virus (RSV) vaccine, bivalent (ABRYSVO) Mary Kay Delgado DO Work Phone: [facility] 03-22-2024 pneumococcal conjuga te (PCV20) vaccine, 20 valent (PREVNAR 20) Mary Kay Delgado DO Work Phone: [facility] 01-30-2024 Covid (Spikevax) Dr. Kierra lester MD Work Phone: [facility] 12-26-2023 influenza, high dose seasonal, preservative-free Kierra Santiago MD Work Phone: [facility] 12-26-2023 zoster vaccine recombinant Kierra Santiago MD Work Phone: [facility] 12-26-2023 influenza virus vaccine, unspecified formulation Kierra Santiago MD Work Phone: [facility] 10-17-2023 tetanus toxoid, redu sharan diphtheria toxoid, and acellular pertussis vaccine, adsorbed Anastasiia Colón SUPERVISOR [employer]ILITY.STUDENT EDUCATION SPECIALIST Work Phone: [facility] 10-17-2023 zoster vaccine recombinant Anastasiia Colón [employer]PER[employer].STUDENT EDUCATION SPECIALIST Work Phone: [facility] 02-04-2023 COVID-19 vaccine, ag e 12+ yr, season ([employer]) Kierra Santiago MD Work Phone: [facility] Work Phone: 02-04-2023 influenza (HD-IIV4) vaccine, age 65+ yr, high dose, quadrivalent, PF (FLUZONE HIGH-DOSE) Kierra Santiago MD Work Phone: [facility] Work Phone: 02-04-2023 influenza virus vaccine, unspecified formulation Kierra Santiago MD Work Phone: [facility] 02-23-2022 COVID-19 vaccine, ag e 12+ yr, bivalent ([employer]) Kierra Santiago MD Work Phone: [facility] Work Phone: 03-11-2021 COVID-19 original vaccine, booster dose, monovalent (MODERNA) Kierra Santiago MD Work Phone: [facility] Work Phone: 07-14-2020 COVID-19 original vaccine, full dose, monovalent (MODERNA) Kierra Santiago MD Work Phone: [facility] Work Phone: 06-16-2020 COVID-19 original vaccine, full dose, monovalent (MODERNA) Kierra Santiago MD Work Phone: [facility] Work Phone: Payers Date Payer Category Payer Self-pay [id number] 2024 Unknown [facility] [employer] MEDIC[facility] ADVANTAGE O [id number] 2024-Present [phone] [address] [place] [address] [facility] [place] [id number] 2024 Medicare [id number] 2024 Self-pay 2022 Medicare (Managed Care) 1.2. [id number] 2022 Private Health Insurance [facility] [id number] 2004 Medicare [id number] Unknown [id number] 2..840.1.439512.3.579.2. 462 Unknown [id number] 2..840.1.209070.3.579.2. 462 Unknown [id number] 2..840.1.317032.3.579.2. 462 Unknown [id number] 2.16.840.1.507460.3.579.2. 462 Unknown [id number] 2.16.840.1.626102.3.579.2. 462 Unknown [id number] 2.16.840.1.868512.3.579.2. 462 Unknown [id number] 2.16.840.1.322383.3.579.2. 462 Unknown [id number] 2.16.840.1.951104.3.579.2. 462 Unknown [id number] 2.16.840.1.857131.3.579.2. 462 Unknown [id number] 2.840.1.484378.3.579.2. 462 Unknown [id number] 2.840.1.803680.3.579.2. 462 Unknown [id number] 2.840.1.393117.3.579.2. 462 Unknown [id number] 2.840.1.661711.3.579.2. 462 Unknown [id number] 2.840.1.735166.3.579.2. 462 Unknown [id number] 2.16.840.1.080336.3.579.2. 462 Unknown [id number] 2.16840.1.015040.3.579.2. 462 Unknown [id number] 2.840.1.023661.3.579.2. 462 Unknown [id number] 2.16840.1.707063.3.579.2. 462 Unknown [id number] 2.16.840.1.160718.3.579.2. 462 Unknown [id number] 2.16.840.1.162488.3.579.2. 462 Unknown [id number] 2.16.840.1.390144.3.579.2. 462 Unknown [id number] 2.840.1.358987.3.579.2. 462 Unknown [id number] 2.16.840.1.044929.3.579.2. 462 Unknown [id number] 2.16.840.1.421838.3.579.2. 462 Unknown [id number] 2.16.840.1.909893.3.579.2. 462 Unknown [id number] 2.16.840.1.689714.3.579.2. 462 Unknown [id number] 2.16.840.1.672702.3.579.2. 462 Unknown [id number] 2.840.1.787707.3.579.2. 462 Unknown [id number] 2.840.1.507435.3.579.2. 462 Unknown [id number] 2.840.1.215787.3.579.2. 462 Unknown [id number] 2.840.1.821053.3.579.2. 462 Unknown [id number] 2.840.1.440037.3.579.2. 462 Unknown [id number] 2.840.1.066912.3.579.2. 462 Unknown [id number] 2.840.1.141479.3.579.2. 462 Unknown [id number] 2.840.1.437626.3.579.2. 462 Unknown [id number] 2.840.1.199883.3.579.2. 462 Unknown [id number] 2.16840.1.478710.3.579.2. 462 Unknown [id number] 2.16840.1.266247.3.579.2. 462 Unknown [id number] 2.16840.1.393939.3.579.2. 462 Unknown [id number] 2.16.840.1.164726.3.579.2. 462 Unknown [id number] 2.16.840.1.669288.3.579.2. 462 Unknown [id number] 2.16.840.1.060590.3.579.2. 462 Unknown [id number] 2.16.840.1.579045.3.579.2. 462 Unknown [id number] 2.16.840.1.192578.3.579.2. 462 Unknown [id number] 2.16.840.1.960275.3.579.2. 462 Unknown [id number] 2.16.840.1.329441.3.579.2. 462 Unknown [id number] 2.16.840.1.226992.3.579.2. 462 Unknown [id number] 2.16.840.1.718754.3.579.2. 462 Social History Date Type Detail Facility Start: 04-14-2015 End: 01-07-2025 Tobacco smoking status [facility] Never smoked tobacco [facility] Work Phone: Start: 07-02-2022 End: 08-02-2022 Alcohol intake Not Asked [facility] Start: 1940 Sex Assigned At Not on file C [facility] Start: 08-01-2022 History SDOH Alcohol Frequency [address] [facility] Start: 08-01-2022 History SDOH Alcohol Std Drinks [address] [facility] Start: 08-01-2022 History SDOH Alcohol Binge [address] [facility] Start: 08-01-2022 History SDOH Social Connections Phone [address] [facility] Start: 08-01-2022 History SDOH Physica l Activity DPW [address] [facility] Start: 08-09-2022 End: 10-24-2024 Alcohol intake Current drinker of alcohol (finding) [facility] Start: 08-09-2022 Alcohol Comment occ [facility] Start: 07-31-2022 End: 09-08-2022 History of Social function [facility] Start: 07-31-2022 End: 09-08-2022 Social connection and isolation panel [facility] Do you belong to any clubs or organizations such as christian groups, unions, fraternal or athletic groups, or school groups? Yes [facility] Are you now , , , , never or living with a partner? [facility] How often to you hav e a drink containing alcohol? 2-4 times a month [facility] Start: 04-14-2015 How many standard drinks containing alcohol do you have on a typical day? Patient does not drink [facility] How often do you hav e 6 or more drinks on 1 occasion? Never [facility] Do you feel stress - tense, restless, nervous, or anxious, or unable to sleep at night because your mind is troubled all the time - these days [OSQ] Only a little [facility] (I/We) worried wheth er (my/our) food would run out before (I/we) got money to buy more. Never true [facility] In the past 12 month s, was there a time when you were not able to pay the mortgage or rent on time? No [facility] Start: 1940 Sex Assigned At Female C [facility] Start: 08-13-2023 Gender identity Identifies as female gender (finding) [facility] Start: 08-13-2023 Sexual orientation Heterosexual (fin ding) [facility] Start: 07-18-2024 End: 08-21-2024 Sex Female (finding) [facility] NEGATED: Highlighted row Not [facility] Medical Equipment Procedure Code Equipment Code Equipment Origin al Text Equipment Identifier Dates EGD, with monitored anesthesia care Ligation clip, metallic [id number] FDA Start: 04-04-2024 Creation, bypass, arterial, femoral [...] popliteal, using graft Collagen haemostatic agent, non-antimicrobial ()[id number] FDA Start: 03-12-2024 Creation, bypass, arterial, femoral to popliteal, using graft Ligation clip, metallic ()[id number] FDA Start: 03-12-2024 Creation, bypass, arterial, femoral to popliteal, using graft Ligation clip, metallic ()[id number] FDA Start: 03-12-2024 Creation, bypass, arterial, femoral to popliteal, using graft Ligation clip, metallic ()[id number] FDA Start: 03-12-2024 Creation, bypass, arterial, femoral to popliteal, using graft Ligation clip, metallic ()[id number] FDA Start: 03-12-2024 Creation, bypass, arterial, femoral to popliteal, using graft Ligation clip, metallic ()[id number] FDA Start: 03-12-2024 Creation, bypass, arterial, femoral to popliteal, using graft Ligation clip, metallic ()[id number] FDA Start: 03-12-2024 Creation, bypass, arterial, [...] SUTURE,LIGA CLIP SM [id number] FDA Start: 01-19-2024 Bare-metal carot id artery stent [id number] FDA Start: 01-22-2025 Goals Date Patient Goal Desired Activity /State Personal health goal Functional Status Date Assessment Result Facility 01-23-2025 Functional status Ambulates [facility] Work Phone: 10-10-2024 Functional status Ambulates [facility] Work Phone: 10-10-2024 Functional status Chair [facility] Work Phone: 10-08-2024 Functional status Ambulates [facility] Work Phone: 04-08-2024 Functional status Up ad kaylee;Chair [facility] Work Phone: 04-07-2024 Functional status Tolerates Activity Fair [facility] Work Phone: Mental Status Date Assessment Result Facility 01-23-2025 Cognitive function Appropriate [facility] Work Phone: 01-23-2025 Cognitive function Voice/Name [facility] Work Phone: 10-10-2024 Cognitive function Voice/Name [facility] Work Phone: 10-08-2024 Cognitive function Voice/Name [facility] Work Phone: 08-22-2024 Cognitive function Voice/Name [facility] Work Phone: 04-08-2024 Cognitive function Voice/Name [facility] Work Phone: 04-04-2024 Cognitive function Appropriate;Cooperativ e [facility] Work Phone: 04-04-2024 Cognitive function Voice/Name [facility] Work Phone: Clinical Notes 07-01-2022 to 03-12-2025 Note Date & Type Note Facility 03-12-2025 Note HNO ID: [id number] Author: ANASTASIIA COLÓN APRN.STUDENT EDUCATION SPECIALIST Service: ? Author Type: Nurse Specialist Type: Progress Notes Filed: 03/12/2025 16:31 Note Text: Take Coumadin 2 mg daily and check INR in 2 weeks [facility] 03-12-2025 Note HNO ID: [id number] Author: IWONA DONATO RN Service: ? Author Type: Registered Nurse Type: Progress Notes Filed: 03/12/2025 16:31 Note Text: patient had inr completed at [facility] patients inr is 1.8 (patients inr range is 2.0-3.0) patient is currently taking 1mg Thurs and 2mg all other days patients last dose change was on 02/20/25 due to a low level of 1.5 (dose at that time was 1mg Tues Thurs and 2mg all other days) patient has had no changes in medication and no missed doses and no change in diet recommend: patient change coumadin to 2mg daily and recheck in 2 weeks patient has been scheduled for a 2 week follow up inr on 03/26/25 please review and advise on recommendation patient only needs called if provider does not agree with recommendation [facility] 02-27-2025 Note [facility] 02-26-2025 Note [facility] 02-20-2025 Note HNO ID: [id number] Author: IWONA DONATO RN Service: ? Author Type: Registered Nurse Type: Progress Notes Filed: 02/20/2025 16:19 Note Text: pcp agrees with information [facility] 02-20-2025 Note HNO ID: [id number] Author: IWONA DONATO, RN Service: ? Author Type: Registered Nurse Type: Progress Notes Filed: 02/20/2025 16:19 Note Text: patient had inr completed at [facility] patients inr is 1.5 (patients inr range is 2.0-3.0) patient is currently taking 1mg and 2mg all other days patients last dose change was on 02/06/25 due to a low level of 1.3 (dose at that time was 1mg Mon,Wed,Fri and 2mg all other days) patient has had no changes in medication except for coumadin and no missed doses and no change in diet FYI - patient will be stopping coumadin for 3 days starting on Tuesday (02/23/25) for procedure recommend: patient change coumadin to 1mg Thurs and 2mg all other days and recheck in 3 weeks due to stopping coumadin patient has been scheduled for a 3 weeks (03/12/25) please review and advise on recommendation patient only needs called if provider does not agree with recommendation [facility] 02-06-2025 Note HNO ID: [id number] Author: IWONA DONATO, XOCHILT Service: ? Author Type: Registered Nurse Type: Progress Notes Filed: 02/06/2025 11:22 Note Text: pcp agrees with information [facility] 02-06-2025 Note HNO ID: [id number] Author: IWONA DONATO, RN Service: ? Author Type: Registered Nurse Type: Progress Notes Filed: 02/06/2025 11:22 Note Text: patient had inr completed at [facility] patients inr is 1.3 (patients inr range is 2.0-3.0) patient is currently taking 1mg Mon,Wed,Fri and 2mg all other days patients last dose change was on 01/16/25 due to a low level of 1.4 (dose at that time was 2mg Tues,Thurs,Sat and 1mg all other days) patient has had a change in medication as pt has started an 81mg ASA, and no missed doses and no change in diet recommend: patient change coumadin to 1mg Tues,Thurs and 2mg all other days and recheck in 2 weeks patient has been scheduled for a 2 week follow up inr on 02/20/25 please review and advise on recommendation patient only needs called if provider does not agree with recommendation [facility] 01-29-2025 Note HNO ID: [id number] Author: KIERRA SANTIAGO MD Service: ? Author Type: Physician Type: Progress Notes Filed: 03/08/2025 02:09 Note Text: Lane Pritchard is a 84 year old female. MAYNOR Hwang is a 84-year-old female with a history of HTN, DM, and recent left carotid stent placement, presenting for a 6-month follow-up visit. Eri reports feeling pretty good following her recent left carotid stent placement. She is currently not taking her antihypertensive medication, losartan, due to consistently low blood pressure readings. She has been monitoring her blood pressure at home, with systolic readings ranging from 100-130 mmHg and diastolic readings primarily in the 60-70 mmHg range, occasionally dropping to 50 mmHg or rising to 80 mmHg. Her heart rate has been stable, averaging 60-70 bpm. Prior to the stent placement, her blood pressure readings were in the 130-140 mmHg range. She also monitors her blood glucose levels daily, with fasting readings primarily in the 180-200 mg/dL range, occasionally as low as 156 mg/dL. She notes that her blood glucose levels have been more stable recently, with fewer readings above 200 mg/dL. She denies any symptoms of hyperglycemia or hypoglycemia. She reports that her surgical incision was painful a few days ago, but she applied vitamin C cream, which provided relief. She is scheduled for a follow-up appointment with her surgeon's assistant strength coach on February 05 and is planning to undergo a right carotid stent placement in a month. She reports a persistent dry cough, particularly noticeable when lying down at night, which has been affecting her sleep. She has been managing this with chamomile tea, which she finds helpful. She is currently taking pantoprazole for GERD, Flonase, and loratadine for allergies. She denies any recent changes in her medication regimen. She reports that her balance has improved since her surgery, and she no longer needs to use a walker at home. She denies any recent falls or near-falls. She is able to walk well despite having no toes on her right foot and reports that a pressure injury to her heel from last year has completely healed. She does note that she has to be careful about her balance. She reports regular bowel movements and denies any issues with nausea, gas, or bloating. She is taking a probiotic and eating yogurt to prevent C. diff, which she has had three times in the past. She denies any current symptoms of C. diff. She reports that her weight has remained stable within 3 pounds. She is not currently exercising due to her recent surgery but stays active by cooking. She reports eating a healthy diet, including fruits, vegetables, whole grains, and lean proteins, and denies any use of tobacco products. She reports that her vision is good with new lenses, and she is doing well with her hearing aids. She denies any current symptoms of depression or anxiety and is not taking any antidepressant medications. She reports that she was previously diagnosed with atrial fibrillation but denies any current symptoms. She is currently taking amlodipine 10 mg daily, metoprolol succinate 25 mg twice daily, and losartan hydrochlorothiazide 112.5 mg. She is not taking the additional losartan that was prescribed. She is also taking magnesium supplements to prevent leg cramps, which she reports have not occurred for quite a while. She denies any issues with medication refills. She has advanced directives on file from December of last year. She denies seeing a computer assistant or urologist and is not aware of any recent cholesterol checks. She is scheduled for follow-up labs with her surgeon's assistant strength coach on February 05. PAST MEDICAL HISTORY Diagnosis Date Atrial fibrillation (HCC) Diabetes mellitus (HCC) Factor V deficiency (HCC) GERD (gastroesophageal reflux disease) TIA (transient ischemic attack) 2001 Current Outpatient Medications Medication Sig Aspirin 81 mg tab Take 81 mg by mouth. losartan-hydroCHLOROthiazide (HYZAAR) 100-12.5 mg per tablet Take 1 tablet by mouth once daily. lactobacillus combination no.4 (PROBIOTIC) 3 billion cell cap Take by mouth. Cranberry 500 mg cap Take by mouth. ubidecarenone/vitamin E mixed (COQ10 SG 100 ORAL) Take by mouth. Cinnamon Bark 500 mg cap Take by mouth. diphenhydrAMINE (BENADRYL) 25 mg tablet Take 25 mg by mouth every 6 hours as needed. metoprolol succinate ER (TOPROL XL) 25 mg 24 hr tablet Take 1 tablet by mouth two times a day. tiZANidine (ZANAFLEX) 4 mg tablet Take 1 tablet by mouth every 8 hours as needed. glimepiride (AMARYL) 2 mg tablet Take 1 tablet by mouth two times a day. As directed amLODIPine (NORVASC) 10 mg tablet Take 10 mg by mouth once daily. potassium chloride ER (KLOR-CON) 20 mEq tablet Take 1 tablet by mouth two times a day. pantoprazole DR (PROTONIX) 40 mg tablet Take 1 tablet by mouth every 12 hours. clopidogrel (PLAVIX) 75 mg t (more content not included)... [facility] 01-23-2025 Consult note [facility] 01-23-2025 Consult note [facility] 01-23-2025 Discharge summary [facility] 01-23-2025 Note [facility] 01-23-2025 Progress note Note Date/Time January 23, 2025 9:59am [facility] Medical Records Department [address] [place] [address] Progress Note - Surgery 01/23/25 0956 MR#: [id number] Acct: [id number] Name: ERI PRITCHARD Rep #:[id number] : 1940 84 From: Shaan Rojas MD PCP: Dr. Kierra Santiago MD Status:AD M IN Location: ICU CVICU20 1-1 Subjective Subjective Doing well overnight. No numbness/weakness/vision loss/speech difficulty. Tolerating diet, voiding. Objective Data Objective Data A&O x 3, NAD RRR Resp non labored motor/sensory intact and equal bilateral Inc C/D/I, no erythema or hematoma. Right femoral access soft with no hematoma Vital Signs: Vital Signs Temp Pulse Resp BP Pulse Ox O2 Del Method O2 Flow Rate 97.8 F 55 L 15 137/54 H 99 Nasal Cannula 2 01/22/25 12:30 01/23/25 09:22 01/23/25 07:00 01/23/25 07:00 01/23/25 07:25 01/23/25 07:25 01/23/25 07:25 Oxygen Flow Rate (L/min) 2 Oxygen Delivery Method Nasal Cannula Weight: 156 lb 4.924 oz Body Mass Index (BMI) 27.6 Intake & Output: Intake and Output for Last 24 Hours 01/21/25 01/22/25 01/23/25 23:59 23:59 23:59 Intake Total 136.5 / 616.5 530 / 530 Output Total 960 / 960 465 / 465 Balance -823.5 / -343.5 65 / 65 Lab / Micro Data 01/23/25 06:35 01/16/25 10:02 Labs: Laboratory Results - last 24 hr 01/22/25 05:58: POC PT 15.9 H, INR 1.4 01/22/25 07:32: Activated Clotting Time 279 H 01/22/25 08:09: Activated Clotting Time 256 H 01/22/25 11:58: POC Glucose 217 H 01/22/25 16:33: POC Glucose 228 H 01/22/25 21:46: POC Glucose 214 H 01/23/25 06:35: WBC 8.5, RBC 2.83 L, Hgb 9.1 L, Hct 27.4 L, MCV 96.8, MCH 32.2 H, MCHC 33.2, RDW Std Deviation 53.7 H, RDW Coeff of Kate 15.3 H, Plt Count 159, MPV 11.1, Immature Gran % (Auto) 0.500, Neut % (Auto) 81.6 H, Lymph % (Auto) 10.3 L, Wal[place] % (Auto) 7.5, Eos % (Auto) 0.0, Baso % (Auto) 0.1, Absolute Neuts (auto) 6.9, Absolute Lymphs (auto) 0.88, Nucleated RBC % 0 01/23/25 08:05: POC Glucose 169 H Assessment & Plan Assessment/Plan (1) Stenosis of left carotid artery: PLAN: -POD # 1 left TCAR -hemodynamically stable -STEPHANIE with minimal output, removed -cont progressive ambulation, diet -anticipate DC later today 01/23/25 0959 <Electronically signed by Shaan Rojas MD> Cosigner Signature (if applicable): CC: ~ Signed [facility] Work Phone: 1(686) 909-737709-24-2025 Progress note [facility] Medical Records Department [address] [place] [address] Progress Note - Surgery 01/23/25 0956 MR#: [id number] Acct: [id number] Name: ERI PRITCHARD Rep #:[id number] : 1940 84 From: Shaan Rojas MD PCP: Dr. Kierra Santiago MD Status:AD M IN Location: ICU CVICU20 05-02 Subjective Subjective Doing well overnight. No numbness/weakness/vision loss/speech difficulty. Tolerating diet, voiding. Objective Data Objective Data A&O x 3, NAD RRR Resp non labored motor/sensory intact and equal bilateral Inc C/D/I, no erythema or hematoma. Right femoral access soft with no hematoma Vital Signs: Vital Signs Temp Pulse Resp BP Pulse Ox O2 Del Method O2 Flow Rate 97.8 F 55 L 15 137/54 H 99 Nasal Cannula 2 01/22/25 12:30 01/23/25 09:22 01/23/25 07:00 01/23/25 07:00 01/23/25 07:25 01/23/25 07:25 01/23/25 07:25 Oxygen Flow Rate (L/min) 2 Oxygen Delivery Method Nasal Cannula Weight: 156 lb 4.924 oz Body Mass Index (BMI) 27.6 Intake & Output: Intake and Output for Last 24 Hours 01/21/25 01/22/25 01/23/25 23:59 23:59 23:59 Intake Total 136.5 / 616.5 530 / 530 Output Total 960 / 960 465 / 465 Balance -823.5 / -343.5 65 / 65 Lab / Micro Data 01/23/25 06:35 01/16/25 10:02 Labs: Laboratory Results - last 24 hr 01/22/25 05:58: POC PT 15.9 H, INR 1.4 01/22/25 07:32: Activated Clotting Time 279 H 01/22/25 08:09: Activated Clotting Time 256 H 01/22/25 11:58: POC Glucose 217 H 01/22/25 16:33: POC Glucose 228 H 01/22/25 21:46: POC Glucose 214 H 01/23/25 06:35: WBC 8.5, RBC 2.83 L, Hgb 9.1 L, Hct 27.4 L, MCV 96.8, MCH 32.2 H, MCHC 33.2, RDW Std Deviation 53.7 H, RDW Coeff of Kate 15.3 H, Plt Count 159, MPV 11.1, Immature Gran % (Auto) 0.500, Neut % (Auto) 81.6 H, Lymph % (Auto) 10.3 L, Walworth % (Auto) 7.5, Eos % (Auto) 0.0, Baso % (Auto) 0.1,Absolute Neuts (auto) 6.9, Absolute Lymphs (auto) 0.88, Nucleated RBC % 0 01/23/25 08:05: POC Glucose 169 H Assessment & Plan Assessment/Plan (1) Stenosis of left carotid artery: PLAN: -POD # 1 left TCAR -hemodynamically stable -STEPHANIE with minimal output, removed -cont progressive ambulation, diet -anticipate DC later today 01/23/25 0959 Cosigner Signature (if applicable): CC: ~ Signed [facility]09-23-2025 Procedure note [facility] Medical Records Department [address] [place] [address] Operative Report 01/22/25 0935 MR#: [id number] Acct: [id number] Name: ERI PRITCHARD Rep #:[id number] : 1940 84 From: Shaan Rojas MD PCP: Dr. Kierra Santiago MD Status:AD M IN Location: ICU CVICU20 1-1 Operative Report (Standard) Operative Information Date of Procedure: 01/22/25 Pre-Operative Diagnosis: left carotid stenosis Post-Operative Diagnosis: same Surgery/Procedure Performed: left carotid stent, trans carotid floor person: Yes Equipment Operator [employer]: Sonja Bello Tasks completed by tiler's assistant: Opening, Closing, Opening & closing, Implantingdevice, Hemostasis: Tie and Retracting Type of Anesthesia: General RN Documented Start/Stop Times: Operation Date: 01/22/25 07:30 Case Time Into Pre-Op 01/22/25 05:44 Out of Pre-Op 01/22/25 07:04 Into Recovery 01/22/25 09:56 Out of Recovery 01/22/25 11:21 Procedure Start Time: 08:10 Procedure Stop Time: 09:30 Select all DRAINS/GRAFTS/IMPLANTS that apply: Implanted device Implanted device details: [address] En Route 8-6x30 Estimated Blood Loss: 6 Specimen collected: No Description of surgery: HPI: Patient is an 84-year-old female with asymptomatic severe left carotid artery stenosis. She has anatomy that which is amenable to stenting so she presents now for transcarotid artery stenting. Description of procedure: Upon obtaining informed consent and verification correct patient procedure site the patient was taken to the Lead Network [facility] where she was placed under general anesthesia. She was then positioned prepped and drapedin usual sterile fashion a timeout was performed. Transverse incision was made 1 fingerbreadth above the left clavicle and Bovie used dissect down through subcutaneous tissue to the level of the platysma. The platysma was divided and self-retaining retractors put inposition. Further dissection was then carried down to the sternocleidomastoid between the sternal and clavicular heads. Subtenon retractors then moved deeper into the wound exposing the carotid sheath . Sharp dissection used to dissect free the jugular vein which was mobilized along its anterior border and allowing it to be retracted laterally. The common carotid artery was then identified and care taken to identify protectthe adjacent nerve. Sharp dissection was used dissect free proximal to the anticipated access site and a right angle used to place a vessel loop. The patient was then heparinized and allowed to circulate for 3 minutes with subsequent heparin dosing based on ACT results. A 5-0 Prolene pursestring was then placed at the intended access site. Next under ultrasound guidance the right common femoral vein was accessed with a micropuncture needle wire. This then exchanged fora J-wire and the micropuncture sheath exchanged for the venous return sheath advanced without resistance. Next a micropuncture needle wire used access the carotid at the predetermined access site. This was then exchanged for a micropuncture sheath routine injection carotid angiogram was performed revealing satisfactory position with no extravasation or dissection. This also confirmed the locationof the lesion in the carotid bifurcation. The J- wire was then advanced stopping short of the lesionand the micropuncture sheath exchanged for the flow reversal sheath advanced without resistance. The flow reversal tubing was then attached and adequate flow reversal confirmed. Next the common carotid artery was occluded with vessel loop and adequate flow reversal confirmed in the tubing. Oblique views were obtained with subtraction angiography and we then navigated the stenosis with the 014 wire advancing into the distal internal carotid artery. A 4.5 mm x 25 angioplasty balloon was then advanced and centered on the lesion and inflated to nominal for 30 seconds then deflated and withdrawn. A tapered silk Road en route stent 8-6 x 30 was advanced into position centered on the lesion and deployed. Repeat angiography revealed satisfactory stent positioning however there was some residual waist from the bulky lesion. This was then postdilated with a 5 mm x 25 angioplasty balloon inflated to nominal for 30 seconds then deflated withdrawn. Completion angiography revealed satisfactory lesion response with brisk contrast transit, no extravasation or dissection, and no plaque prolapse through the stent struts. There is satisfactory stent wall apposition and a satisfactory expansion of the stent. Flow reversal was then performed for an additional 2 minutes and the proximal clamp releasedwith an additional 1 minute of flow reversal. The flow reversal tubing was then detached and blood returned via the venous sheath. Thefemoral vein sheath then withdrawn a minute pressure held until hemostasis was obtained. The carotid sheath and wire were then withdrawn and the pursestring secured with satisfactory hemostasis observed. Heparin was then reversed with protamine and the incision inspected for hemostasis. A 19 Arabic channel STEPHANIE wasthen placed via separate stab incision and incisionclosed with 3-0 Vicryl followed by 4 Monocryl and Dermabond for the skin. At the inclusion of case thepatient was awake manage he is moving all extremities to command with cranial nerves intact. She was then taken to the recovery room with anticipated admission to intensive care unit for hemodynamic and neurologic monitoring. Surgical Findings: see above Complications Complications: No 01/22/25 1701 Cosigner Signature (if applicable): CC: Dr. Shaan Rojas MD; Dr. Kierra Santiago MD~ Signed [facility]09-23-2025 Consult note Author Kyle Nye [facility] Note Date/Time January 22, 2025 11:34am [facility] Medical Records Department [address] [place] [address] Anesthesia Postop Eval II 01/22/25 1130 MR#: [id number] Acct: [id number] Name: ERI PRITCHARD Rep #:[id number] : 1940 84 From: Kyle Nye MD PCP: Dr. Kierra Santiago MD Status:AD M IN Y Race: C Location: ICU CVICU 201-1 Anesthesia Postop Eval I Sum Postop Eval Completion status Anesthesia document: Postop Eval 1 completed: Yes Anesthesia Postop Eval I Summary Anesthesia Postop Eval I Summary: Anesthesia Postop Eval I: Assessment Summary Airway patent Yes 01/22/25 10:05 [email or web address] [email or web address] Spontaneous unlabored Yes 01/22/25 10:05 REWORK [email or web address] respirations Mental status Awake,Calm 01/22/25 10:05 REWORK [email or web address] nausea No 01/22/25 10:05 REWORK MACHINE [email or web address] Vomiting No 01/22/25 10:05 REWORK [email or web address] Anesthesia Postop Eval I: Fluid Summary Crystalloid volume administer 1,300 01/22/25 10:05 REWORK [email or web address] (ml) Colloids volume administered ( ml) Blood Product volume administered (ml) Total IV fluid infused 1,300 01/22/25 10:05 REWORK MACHINE [email or web address] Anesthesia Postop Eval I: Summary Notes Anesthesia Complication No 01/22/25 10:05 REWORK [email or web address] Anesthesia Complication Comment: Post-operative progress note Anesthesia: Postop Eval II Evaluation Mental status: Awake and Calm Pain Level: 1 nausea: No Vomiting: No Progress Note Post-operative progress note: A-line became dislodged in PACU. Noninvasive blood pressures are normal and stable. Patient should be fine without A-line being restarted. Complications Anesthesia Complication: No 01/22/25 1134 <Electronically signed by Kyle isabel MD> Date _ Kyle Nye MD Cosigner Signature: Date CC: ~ Signed [facility] Work Phone: 1(199) 878-594509-23-2025 Consult note Author Nir Erazo [facility] Note Date/Time January 23, 2025 1:20pm [facility] Medical Records Department [address] [place] [address] Anesthesia Postop Eval I 01/22/25 1005 MR#: [id number] Acct: [id number] Name: MACHOERIKAYE WILLIAMSON Rep #:[id number] : 1940 84 From: Nir Erazo CRNA PCP: Dr. Kierra Santiago MD Status:AD M IN Y Race: C Location: [place] [address] Anesthesia: Postop Eval I Current Vital Signs Temperature: 96.5 F Pulse Rate: 65 Blood Pressure: 112/57 Respiratory Rate: 20 Pulse Ox: 95 Oxygen Delivery Method: Nasal Cannula Oxygen Flow Rate (L/min): 2 Assessment Airway patent: Yes Spontaneous unlabored respirations: Yes Mental status: Awake and Calm nausea: No Vomiting: No Anesthesia Complication: No Fluid Hydration Crystalloid volume administer (ml): 1,300 Total IV fluid infused: 1,300 Progress Note Anesthesia document: Postop Eval 1 completed: Yes 01/22/251004 <Electronically signed by Nir marks CRNA> Date _ Nir Erazo CRNA Cosigner Signature: Date CC: ~ Signed [facility] Work Phone: 1(436) 121-922309-23-2025 Consult note [facility] Medical Records Department [address] [place] [address] Anesthesia Postop Eval II 01/22/25 1130 MR#: [id number] Acct: [id number] Name: ERI PRITCHARD Rep #:[id number] : 1940 84 From: Kyle Nye MD PCP: Dr. Kierra Santiago MD Status:AD M IN Y Race: C Location: ICU CVICU 201-1 Anesthesia Postop Eval I Sum Postop Eval Completion status Anesthesia document: Postop Eval 1 completed: Yes Anesthesia Postop Eval I Summary Anesthesia Postop Eval I Summary: Anesthesia Postop Eval I: Assessment Summary Airway patent Yes 01/22/25 10:05 REWORK [email or web address] Spontaneous unlabored Yes 01/22/25 10:05 REWORK MACHINE [email or web address] respirations Mental status Awake,Calm 01/22/25 10:05 REWORK [email or web address] nausea No 01/22/25 10:05 REWORK MACHINE [email or web address] Vomiting No 01/22/25 10:05 REWORK MACHINE [email or web address] Anesthesia Postop Eval I: Fluid Summary Crystalloid volume administer 1,300 01/22/25 10:05 REWORK MACHINE [email or web address] (ml) Colloids volume administered ( ml) Blood Product volume administered (ml) Total IV fluid infused 1,300 01/22/25 10:05 REWORK MACHINE [email or web address] Anesthesia Postop Eval I: Summary Notes Anesthesia Complication No 01/22/25 10:05 REWORK MACHINE [email or web address] Anesthesia Complication Comment: Post-operative progress note Anesthesia: Postop Eval II Evaluation Mental status: Awake and Calm Pain Level: 1 nausea: No Vomiting: No Progress Note Post-operative progress note: A-line became dislodged in PACU. Noninvasive blood pressures are normal and stable. Patient should be fine without A-line being restarted. Complications Anesthesia Complication: No 01/22/25 1134 chalo ERICKSON> Date _ Kyle Nye MD Cosigner Signature: Date CC: ~ Signed [facility]09-23-2025 History and physical note Author Shaan Rojas [facility] Note Date/Time January 22, 2025 7:35[facility] Medical Records Department [address] [place] [address] History & Physical Exam 01/22/25 0726 MR#: [id number] Acct: [id number] Name: ERI PRITCHARD Rep #:[id number] : 1940 84 From: Shaan Rojas MD PCP: Dr. Kierra Santiago MD Status:AD M IN Location: [place] [address] HPI - General General Date of Admission: 01/22/25 HPI Narrative ERI PRITCHARD, is a 84 F who presents with left carotid stenosis, asymptomatic. Her anatomy is compatible with carotid stenting. [facility] Medical History Wears hearing aid in both ears Diabetes Sleep apnea Hx of cardiovascular stress test Hx of echocardiogram Cardiology follow-up encounter Preop cardiovascular exam (HFpEF) heart failure with preserved ejection fraction Pleural effusion, left TIA (transient ischemic attack) Wears glasses Depression Heartburn Non-smoker On home oxygen therapy Hypertension Gastric ulcer Aortic valve stenosis Atrial fibrillation Dilated cardiomyopathy Prolonged QT interval Elevated blood pressure reading without diagnosis of hypertension Factor V Leiden Anxiety Hypokalemia Acute hypoxemic respiratory failure CHF (congestive heart failure) Home Medications ?Medication ?Instructions ?Recorded ?Last Taken ?Type oxybutynin chloride 10 mg 10 mg PO DAILY bladder 09/2201/21/25 History tablet,extended release 24 hr glimepiride 2 mg tablet 2 mg PO DAILY dm 12/31/23 History ferrous sulfate 325 mg (65 mg 325 mg PO DAILY@1200 sup plement 30 02/03/24 01/20/25 Rx iron) tablet (FeroSul) days #30 tabs furosemide 40 mg tablet 40 mg PO DAILY water pill 30 days 03/19/24 01/21/25 Rx #60 tabs clopidogrel 75 mg tablet 75 mg PO DAILY a fib 30 days #30 04/05/24 01/21/25 Rx tabs pantoprazole 40 mg tablet,delayed 40 mg PO BID reflux 30 days #60 04/05/24 01/22/25 Rx release tabs simvastatin 80 mg tablet 80 mg PO QHS cholesterol 01/21/25 History magnesium chloride 64 mg 128 mg PO DAILY leg cramps 0 08/17/24 01/21/25 History (magnesium chloride) tablet,delayed release (Mag 64) potassium chloride 20 mEq 20 meq PO BID supplement 01/21/25 History tablet,extended release amlodipine 10 mg tablet 10 mg PO .COMPLEX bp #90 tab s 09/04/24 01/21/25 Rx acetaminophen 500 mg capsule 500 mg PO QHS PRN pain 01/21/25 History fluticasone propionate 50 2 spray intranasal Q12H PRN 10/07/24 01/21/25 History mcg/actuation nasal congestion spray,suspension gabapentin 100 mg capsule 100 mg PO TID pain 10/07/24 01/21/25 History metoprolol succinate 25 mg 25 mg PO BID bp #60 tabs 01/22/25 Rx tablet,extended release 24 hr tizanidine 4 mg tablet 2 mg PO Q8 PRN muscle [facility] 12/13/24 01/21/25 History warfarin 2 mg tablet 2 mg PO .COMPLEX afib 01/19/25 History cinnamon bark 500 mg capsule 500 mg PO DAILY supplemen t 01/07/25 01/21/25 History (Cinnamon) coenzyme Q10 100 mg capsule (Co 100 mg PO DAILY supple ment 01/07/25 01/21/25 History Q-10) cranberry 500 mg capsule 500 mg PO DAILY supplement 0 01/07/25 01/21/25 History diphenhydramine HCl 25 mg capsule 25 mg PO .qd allergi es 01/07/25 01/21/25 History (Aler-Cap) lactobacillus combination no.4 3 3,000 mmu cells PO DA MAUREEN supplement 01/07/25 01/21/25 History billion cell capsule (Probiotic) losartan 100 1 tab PO .qd bp 01/07/25 History mg-hydrochlorothiazide 12.5 mg tablet aspirin 325 mg capsule 325 mg PO DAILY for stent 01/22/25 History Allergy/AdvReac Type Severity Reaction Status Date / Time benazepril (From Lotensin) Allergy Mild DOESNT Verified 01/22/25 06:01 REMEMBER quinapril (From Accupril) Allergy Mild UNKNOWN Verified 01/22/25 06:01 Sulfa (Sulfonamide Allergy Mild Hives Verified 01/22/25 06:01 Antibiotics) verapamil (From Calan) Allergy Mild UNKNOWN Verified 01/22/25 06:01 Family History Mother Diabetes Father Diabetes CVA (cerebral vascular accident) Heart disease Hypertension Myocardial infarction CAD (coronary artery disease) Brother Myocardial infarction Hypertension Heart disease CAD (coronary artery disease) Sister NAFLD (nonalcoholic fatty liver disease) Other Asthma COPD (chronic obstructive pulmonary disease) Surgical History History of esophagogastroduodenoscopy (EGD) (10/08/24) Hx of amputation History of transmetatarsal amputation of right foot History of femoropopliteal bypass S/P carotid endarterectomy Social History household members: spouse Smoking Status: Never smoker alcohol intake: never substance use type: does not use ROS Constitutional Constitutional: Denies chills, fever(s), frequent falls, lethargy or weakness Eyes Eyes: Denies blind spots, change in vision or loss of vision ENT HEENT: Denies bleeding gums, hoarseness or sore throat Cardiovascular Cardiovascular: Denies abdominal pain, bluish discoloration of hand/feet, chest pain with activity, claudication, cold extremities, cyanosis, dyspnea on exertion, erythema on extremities, irregular heart rhythm, leg edema, leg ulcers, numbness in extremities or weakness in extremities Respiratory/Chest Respiratory/Chest: Denies cough, excessive phlegm production, shortness of breath at rest, shortness of breath with exertion or wheezing Gastrointestinal Gastrointestinal: Denies anorexia, change in stool character, constipation, diarrhea, melena or rectal bleeding Genitourinary Genitourinary: Denies dysuria or hematuria Musculoskeletal Musculoskeletal: Denies abnormal gait Integumentary Integumentary: Reports other Details: ; Denies erythema, non-healing lesions or wounds Neurologic Neurologic: Denies abnormal speech, focal weakness, headache(s), loss of vision,numbness, paresthesias or sensory deficit Hematologic/Lymphatic Hematologic/Lymphatic: Denies easy bleeding, easy bruising or lymphadenopathy Vital Signs Vital Signs Vital Signs: 01/22/25 06:07 01/22/25 06:07 01/22/25 06:57 Temperature 97.9 F 97.9 F Temperature Source Temporal Pulse Rate 56 L 56 L Respiratory Rate 18 18 Respiratory Pattern Normal Blood Pressure 158/64 H 158/64 H Blood Pressure Mean 95 Blood Pressure Source Monitor Blood Pressure Position Semi-Fowlers Blood Pressure Location Left Arm Pulse Ox 98 98 Oxygen Delivery Method Room Air Room Air Weight Weight: 152 lb 1.903 oz Body Mass Index (BMI) 26.9 Physical Exam Const alert, oriented x3, no apparent distress and healthy appearing General Appearance: cooperative; Negative for combative or lethargic Orientation / Consciousness: awake Exam Limitations: no limitations HEENT Head and Scalp: normocephalic and atraumatic Eyes EOMs intact bilaterally General Eye: normal appearance of both eyes Neck full ROM General: trachea midline Resp normal respiratory effort and no use of accessory muscles Effort and Inspection: Negative for labored, stridor or audible wheezes Cardio regular rate and regular rhythm Back/Spine Cervical Spine: cervical ROM normal Extremity full ROM, normal capillary refill and no clubbing, cyanosis or edema Skin no rashes or lesions noted and no wounds Neuro oriented x3, CN's II-XII intact bilaterally, no focal motor deficits and no sensory deficits noted Psych thought process normal, cooperative, affect normal, speech normal and activity/motor behavior normal Results Lab / Micro Data 01/16/25 10:02 01/16/25 10:02 Labs: Laboratory Results - last 24 hr 01/22/25 05:58: POC Glucose 170 H 01/22/25 06:20: PT 14.6, INR 1.1 Assessment & Plan Assessment/Plan (1) Stenosis of left carotid artery: PLAN: -TCAR 01/22/25 0735 <Electronically signed by Shaan Rojas MD> Cosigner Signature (if applicable): CC: Dr. Shaan Rojas MD; Dr. Kierra Santiago MD~ Signed [facility] Work Phone: [phone] 585-724809-23-2025 Consult note Author Kyle Nye [facility] Note Date/Time January 22, 2025 7:00am [facility] Medical Records Department [address] [place] [id number] Pre-Anesthesia Evaluation 01/22/2545 MR#: [id number] Acct: [id number] Name: ERI PRITCHARD Rep #:[id number] : 1940 84 From: Kyle Nye MD PCP: Dr. Kierra Santiago MD Status:AD M IN Y Race: C Location: [place] [address] ASA Classification* ASA Classification ASA Classification: 3 Assessment & Plan Anesthesia* Anesthesia Assessment Anesthesia [...] anesthesia risk assessments. Anesthesia Type Anesthesia Type: General (Patient has mild aortic stenosis. Avoid increased heart rate and decrease blood pressure. Phenylephrine is drug of choice.) History Source History Obtained from:: Patient and Chart Anesthesia Focused Assessment* Temperature: 97.9 F Pulse Rate: 56 Blood Pressure: 158/64 Respiratory Rate: 18 Pulse Ox: 98 Oxygen Delivery Method: Room Air Airway Assessment Mouth opens: >3 cm Mallampati Score: II Teeth Condition: Caps/Crowns (Top front incisors are capped. They are tight.) and Missing (Missing a left upper molar.) Neck Range of motion (ROM): Limited ROM (Severe Restriction) Labs Anesthesia Preop lab: CBC WBC, (4.4-11.0) 4.2 K/mm3 L 01/16/25, 10:02 RBC, (4.2-5.4) 3.52 M/mm3 L 01/16/25, 10:02 Hgb, (12.0-15.0) 11.2 g/dL L 01/16/25, 10:02 Hct, (37-47) 33.2 % L 01/16/25, 10:02 Plt Count, (150-450) 188 K/mm3 01/16/25, 10:02 CHEMISTRY Potassium, (3.3-5.1) 4.0 mmol/L 01/16/25, 10:02 Sodium, (133-145) 135 mmol/L 01/16/25, 10:02 Magnesium, (1.5-2.2) 2.0 mg/dL 10/07/24, 22:22 Phosphorus, (2.5-4.9) 4.1 mg/dL 03/08/24, 05:15 BUN, (4-19) 29 mg/dL H 01/16/25, 10:02 Creatinine, (0.70-1.20) 1.21 mg/dL H 01/16/25, 10:02 Glucose, (70-99) 337 mg/dL H 01/16/25, 10:02 POC Glucose, (74-106) 170 mg/dL H Today, 05:58 TSH, (0.358-3.740) 5.590 uIU/mL H 03/08/24, 05:15 COAG PT, (11.7-14.9) 22.2 SECONDS H 10/09/24, 05:15 Pre-Assessment Diagnosis/Proposed Procedure Planned Operative Procedure(s): (L) Carotid stent, Lead Network Architect, OR Staff, TELEPHONE RECORDER, Anes. Anesthesia History Anesthesia History - bag patcher: Anesthesia History - bag patcher Hx Hospitalization Yes: GI BLEED 10-2401/07/25 09:22 Any Problems With Anesthesia No 01/07/25 09:22 Cholinesterase deficiency No 01/07/25 09:22 You/Your Family Experience No 01/07/25 09:22 fever (hyperthermia) with Relationship Recent Exposure to Contagious No 01/22/25 06:07 Disease Does patient have nerve No 01/07/25 09:22 stimulator Patient instructed to have device shut off --Does patient have Pacemaker No 01/22/25 06:07 or ICD? When Was Last Pacemaker Check QUESTION #4 FULL TEXT: You/Your Family Experience fever (hyperthermia) with Anesthesia Last Oral Intake Last Oral intake: Last Oral Intake NPO since 22:00 01/22/25 06:07 Meds taken in AM with sips of Yes 01/22/25 06:07 water? Meds patient instructed to metoprolol, pantoprazole 01/22/25 06:07 take am of surgery Any additional information?: Yes Meds taken in AM with sips of water?: Yes PONV PONV - bag patcher: PONV - bag patcher Female Yes 01/07/25 09:22 HX of Motion Sickness No 01/07/25 09:22 HX of N/V After Surgery No 01/07/25 09:22 Non-Smoker Yes 01/07/25 09:22 Duration of Surgery greater Yes 01/07/25 09:22 than 60 minutes Number of Risk Factors 3 01/07/25 09:22 PONV Score Moderate Risk 01/07/25 09:22 Height & Weight Height & Weight: Anesthesia: Height & Weight Height 5 ft 3 in 01/22/25 06:07 Weight: 69 kg 01/22/25 06:07 Body Mass Index (BMI) 26.9 01/22/25 06:07 Respiratory Assessment Respiratory Assessment - bag patcher: Respiratory Tract Infection Hx - bag patcher Hx Respiratory Tract Infection No 01/07/25 09:22 STOP Sleep Apnea STOP Sleep Apnea - bag patcher: STOP Sleep Apnea - bag patcher Hx Hypertension Yes 01/07/25 09:22 Hx Sleep Apnea Yes: USES O2 NC 3L AT HS 01/07/25 09:22 CPAP No 01/07/25 09:22 BIPAP No 01/07/25 09:22 Do you snore loudly (louder than talking or can be heard Do you often feel tired/ fatigued/ sleepy during daytime? Has anyone observed you stop breathing during sleep? STOP Results Positive 01/07/25 09:22 QUESTION #5 FULL TEXT : Do you snore loudly (louder than talking or can be heard through closed doors)? 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 Specify any problems Hx of Preganancy in last 3 No 01/07/25 09:22 Months Nurse Filling Out Transfusion JZOLLINGE 01/07/25 09:22 & Questions: Date: 01/07/25 01/07/25 09:22 Time: 09:24 01/07/25 09:22 Patient unable to answer at this time (ie. confused, unrespo /Reproduction History /Reproductive History - bag patcher: /Reproductive Hx- bag patcher Hx Now No 01/07/25 09:22 Gestational Age (in weeks): EDC: Hx Hx Para Hx Section SAB No 01/07/25 09:22 Active Medications Active Medications: Current Medications Generic Name Dose Route Start Last Admin Trade Name Freq PRN Reason Stop Dose Admin Cefazolin Sodium 2 gm/ Sodium 110 mls @ 200 mls/hr 01/22/25 07:00 Chloride IV 01/22/25 07:32 INTRAOP ONE Lactated Ringer's 1,000 mls @ 15 mls/hr 01/22/25 05:45 01/22/25 06:24 IV 15 mls/hr .Q48H KAVYA Administration PFSH Medical History Wears hearing aid in both ears Diabetes Sleep apnea Hx of cardiovascular stress test Hx of echocardiogram Cardiology follow-up encounter Preop cardiovascular exam (HFpEF) heart failure with preserved ejection fraction Pleural effusion, left TIA (transient ischemic attack) Wears glasses Depression Heartburn Non-smoker On home oxygen therapy Hypertension Gastric ulcer Aortic valve stenosis Atrial fibrillation Dilated cardiomyopathy Prolonged QT interval Elevated blood pressure reading without diagnosis of hypertension Factor V Leiden Anxiety Hypokalemia Acute hypoxemic respiratory failure CHF (congestive heart failure) Home Medications ?Medication ?Instructions ?Recorded ?Last Taken ?Type oxybutynin chloride 10 mg 10 mg PO DAILY bladder 09/2201/21/25 History tablet,extended release 24 hr glimepiride 2 mg tablet 2 mg PO DAILY dm 12/31/23 History ferrous sulfate 325 mg (65 mg 325 mg PO DAILY@1200 sup plement 30 02/03/24 01/20/25 Rx iron) tablet (FeroSul) days #30 tabs furosemide 40 mg tablet 40 mg PO DAILY water pill 30 days 03/19/24 01/21/25 Rx #60 tabs clopidogrel 75 mg tablet 75 mg PO DAILY a fib 30 days #30 04/05/24 01/21/25 Rx tabs pantoprazole 40 mg tablet,delayed 40 mg PO BID reflux 30 days #60 04/05/24 01/22/25 Rx release tabs simvastatin 80 mg tablet 80 mg PO QHS cholesterol 01/21/25 History magnesium chloride 64 mg 128 mg PO DAILY leg cramps 0 08/17/24 01/21/25 History (magnesium chloride) tablet,delayed release (Mag 64) potassium chloride 20 mEq 20 meq PO BID supplement 01/21/25 History tablet,extended release amlodipine 10 mg tablet 10 mg PO .COMPLEX bp #90 tab s 09/04/24 01/21/25 Rx acetaminophen 500 mg capsule 500 mg PO QHS PRN pain 01/21/25 History fluticasone propionate 50 2 spray intranasal Q12H PRN 10/07/24 01/21/25 History mcg/actuation nasal congestion spray,suspension gabapentin 100 mg capsule 100 mg PO TID pain 10/07/24 01/21/25 History metoprolol succinate 25 mg 25 mg PO BID bp #60 tabs 01/22/25 Rx tablet,extended release 24 hr tizanidine 4 mg tablet 2 mg PO Q8 PRN muscle spasti city 12/13/24 01/21/25 History warfarin 2 mg tablet 2 mg PO .COMPLEX afib 01/19/25 History cinnamon bark 500 mg capsule 500 mg PO DAILY supplemen t 01/07/25 01/21/25 History (Cinnamon) coenzyme Q10 100 mg capsule (Co 100 mg PO DAILY supple ment 01/07/25 01/21/25 History Q-10) cranberry 500 mg capsule 500 mg PO DAILY supplement 0 01/07/25 01/21/25 History diphenhydramine HCl 25 mg capsule 25 mg PO .qd allergi es 01/07/25 01/21/25 History (Aler-Cap) lactobacillus combination no.4 3 3,000 mmu cells PO DA MAUREEN supplement 01/07/25 01/21/25 History billion cell capsule (Probiotic) losartan 100 1 tab PO .qd bp 01/07/25 History mg-hydrochlorothiazide 12.5 mg tablet Allergy/AdvReac Type Severity Reaction Status Date / Time benazepril (From Lotensin) Allergy Mild DOESNT Verified 01/22/25 06:01 REMEMBER quinapril (From Accupril) Allergy Mild UNKNOWN Verified 01/22/25 06:01 Sulfa (Sulfonamide Allergy Mild Hives Verified 01/22/25 06:01 Antibiotics) verapamil (From Calan) Allergy Mild UNKNOWN Verified 01/22/25 06:01 Family History Mother Diabetes Father Diabetes CVA (cerebral vascular accident) Heart disease Hypertension Myocardial infarction CAD (coronary artery disease) Brother Myocardial infarction Hypertension Heart disease CAD (coronary artery disease) Sister NAFLD (nonalcoholic fatty liver disease) Other Asthma COPD (chronic obstructive pulmonary disease) Surgical History History of esophagogastroduodenoscopy (EGD) (10/08/24) Hx of amputation History of transmetatarsal amputation of right foot History of femoropopliteal bypass S/P carotid endarterectomy Social History household members: spouse Smoking Status: Never smoker alcohol intake: never substance use type: does not use Review of Systems (Anesthesia) ROS Narrative System reviewed and no additional complaints, except as documented. 01/22/25 0700 <Electronically signed by Kyle isabel MD> Date _ Kyle Nye MD Cosigner Signature: Date CC: ~ Signed [facility] Work Phone: [phone] History and physical note [facility] Medical Records Department [address] [place] [address] History & Physical Exam 01/22/25725 MR#: [id number] Acct: [id number] Name: CARY PRITCHARDYCGlenny WILLIAMSON Rep #:[id number] : 1940 84 From: Shaan Rojas MD PCP: Dr. Kierra Santiago MD Status:AD M IN Location: [place] [address] HPI - General General Date of Admission: 01/22/25 HPI Narrative ERI PRITCHARD, is a 84 F who presents with left carotid stenosis, asymptomatic. Her anatomy is compatible with carotid stenting. [facility] Medical History Wears hearing aid in both ears Diabetes Sleep apnea Hx of cardiovascular stress test Hx of echocardiogram Cardiology follow-up encounter Preop cardiovascular exam (HFpEF) heart failure with preserved ejection fraction Pleural effusion, left TIA (transient ischemic attack) Wears glasses Depression Heartburn Non-smoker On home oxygen therapy Hypertension Gastric ulcer Aortic valve stenosis Atrial fibrillation Dilated cardiomyopathy Prolonged QT interval Elevated blood pressure reading without diagnosis of hypertension Factor V Leiden Anxiety Hypokalemia Acute hypoxemic respiratory failure CHF (congestive heart failure) Home Medications ?Medication ?Instructions ?Recorded ?Last Taken ?Type oxybutynin chloride 10 mg 10 mg PO DAILY bladder 09/2201/21/25 History tablet,extended release 24 hr glimepiride 2 mg tablet 2 mg PO DAILY dm 12/31/23 History ferrous sulfate 325 mg (65 mg 325 mg PO DAILY@1200 sup plement 30 02/03/24 01/20/25 Rx iron) tablet (FeroSul) days #30 tabs furosemide 40 mg tablet 40 mg PO DAILY water pill 30 days 03/19/24 01/21/25 Rx #60 tabs clopidogrel 75 mg tablet 75 mg PO DAILY a fib 30 days #30 04/05/24 01/21/25 Rx tabs pantoprazole 40 mg tablet,delayed 40 mg PO BID reflux 30 days #60 04/05/24 01/22/25 Rx release tabs simvastatin 80 mg tablet 80 mg PO QHS cholesterol 01/21/25 History magnesium chloride 64 mg 128 mg PO DAILY leg cramps 0 08/17/24 01/21/25 History (magnesium chloride) tablet,delayed release (Mag 64) potassium chloride 20 mEq 20 meq PO BID supplement 01/21/25 History tablet,extended release amlodipine 10 mg tablet 10 mg PO .COMPLEX bp #90 tab s 09/04/24 01/21/25 Rx acetaminophen 500 mg capsule 500 mg PO QHS PRN pain 01/21/25 History fluticasone propionate 50 2 spray intranasal Q12H PRN 10/07/24 01/21/25 History mcg/actuation nasal congestion spray,suspension gabapentin 100 mg capsule 100 mg PO TID pain 10/07/24 01/21/25 History metoprolol succinate 25 mg 25 mg PO BID bp #60 tabs 01/22/25 Rx tablet,extended release 24 hr tizanidine 4 mg tablet 2 mg PO Q8 PRN muscle spasti city 12/13/24 01/21/25 History warfarin 2 mg tablet 2 mg PO .COMPLEX afib 01/19/25 History cinnamon bark 500 mg capsule 500 mg PO DAILY supplemen t 01/07/25 01/21/25 History (Cinnamon) coenzyme Q10 100 mg capsule (Co 100 mg PO DAILY supple ment 01/07/25 01/21/25 History Q-10) cranberry 500 mg capsule 500 mg PO DAILY supplement 0 01/07/25 01/21/25 History diphenhydramine HCl 25 mg capsule 25 mg PO .qd allergi es 01/07/25 01/21/25 History (Aler-Cap) lactobacillus combination no.4 3 3,000 mmu cells PO DA MAUREEN supplement 01/07/25 01/21/25 History billion cell capsule (Probiotic) losartan 100 1 tab PO .qd bp 01/07/25 History mg-hydrochlorothiazide 12.5 mg tablet aspirin 325 mg capsule 325 mg PO DAILY for stent 01/22/25 History Allergy/AdvReac Type Severity Reaction Status Date / Time benazepril (From Lotensin) Allergy Mild DOESNT Verified 01/22/25 06:01 REMEMBER quinapril (From Accupril) Allergy Mild UNKNOWN Verified 01/22/25 06:01 Sulfa (Sulfonamide Allergy Mild Hives Verified 01/22/25 06:01 Antibiotics) verapamil (From Calan) Allergy Mild UNKNOWN Verified 01/22/25 06:01 Family History Mother Diabetes Father Diabetes CVA (cerebral vascular accident) Heart disease Hypertension Myocardial infarction CAD (coronary artery disease) Brother Myocardial infarction Hypertension Heart disease CAD (coronary artery disease) Sister NAFLD (nonalcoholic fatty liver disease) Other Asthma COPD (chronic obstructive pulmonary disease) Surgical History History of esophagogastroduodenoscopy (EGD) (10/08/24) Hx of amputation History of transmetatarsal amputation of right foot History of femoropopliteal bypass S/P carotid endarterectomy Social History household members: spouse Smoking Status: Never smoker alcohol intake: never substance use type: does not use ROS Constitutional Constitutional: Denies chills, fever(s), frequent falls, lethargy or weakness Eyes Eyes: Denies blind spots, change in vision or loss of vision ENT HEENT: Denies bleeding gums, hoarseness or sore throat Cardiovascular Cardiovascular: Denies abdominal pain, bluish discoloration of hand/feet, chest pain with activity,claudication, cold extremities, cyanosis, dyspnea on exertion, erythema on extremities, irregular heart rhythm, leg edema, leg ulcers, numbness in extremities or weakness in extremities Respiratory/Chest Respiratory/Chest: Denies cough, excessive phlegm production, shortness of breath at rest, shortness of breath with exertion or wheezing Gastrointestinal Gastrointestinal: Denies anorexia, change in stool character, constipation, diarrhea, melena or rectal bleeding Genitourinary Genitourinary: Denies dysuria or hematuria Musculoskeletal Musculoskeletal: Denies abnormal gait Integumentary Integumentary: Reports other Details: ; Denies erythema, non-healing lesions or wounds Neurologic Neurologic: Denies abnormal speech, focal weakness, headache(s), loss of vision,numbness, paresthesias or sensory deficit Hematologic/Lymphatic Hematologic/Lymphatic: Denies easy bleeding, easy bruising or lymphadenopathy Vital Signs Vital Signs Vital Signs: 01/22/25 06:07 01/22/25 06:07 01/22/25 06:57 Temperature 97.9 F 97.9 F Temperature Source Temporal Pulse Rate 56 L 56 L Respiratory Rate 18 18 Respiratory Pattern Normal Blood Pressure 158/64 H 158/64 H Blood Pressure Mean 95 Blood Pressure Source Monitor Blood Pressure Position Semi-Fowlers Blood Pressure Location Left Arm Pulse Ox 98 98 Oxygen Delivery Method Room Air Room Air Weight Weight: 152 lb 1.903 oz Body Mass Index (BMI) 26.9 Physical Exam Const alert, oriented x3, no apparent distress and healthy appearing General Appearance: cooperative; Negative for combative or lethargic Orientation / Consciousness: awake Exam Limitations: no limitations HEENT Head and Scalp: normocephalic and atraumatic Eyes EOMs intact bilaterally General Eye: normal appearance of both eyes Neck full ROM General: trachea midline Resp normal respiratory effort and no use of accessory muscles Effort and Inspection: Negative for labored, stridor or audible wheezes Cardio regular rate and regular rhythm Back/Spine Cervical Spine: cervical ROM normal Extremity full ROM, normal capillary refill and no clubbing, cyanosis or edema Skin no rashes or lesions noted and no wounds Neuro oriented x3, CN's II-XII intact bilaterally, no focal motor deficits and no sensory deficits noted Psych thought process normal, cooperative, affect normal, speech normal and activity/motor behavior normal Results Lab / Micro Data 01/16/25 10:02 01/16/25 10:02 Labs: Laboratory Results - last 24 hr 01/22/25 05:58: POC Glucose 170 H 01/22/25 06:20: PT 14.6, INR 1.1 Assessment & Plan Assessment/Plan (1) Stenosis of left carotid artery: PLAN: -TCAR 01/22/25 0735 Cosigner Signature (if applicable): CC: Dr. Shaan Rojas MD; Dr. Kierra Santiago MD~ Signed [facility]09-23-20[facility] Consult note [facility] Medical Records Department [address] [place] [address] Pre-Anesthesia Evaluation 01/22/25 0645 MR#: [id number] Acct: [id number] Name: ERI PRITCHARD Rep #:[id number] : 1940 84 From: Kyle Nye MD PCP: Dr. Kierra Santiago MD Status:AD M IN Y Race: C Location: [place] [address] ASA Classification* ASA Classification ASA Classification: 3 Assessment & Plan Anesthesia* Anesthesia Assessment Anesthesia [...] anesthesia risk assessments. Anesthesia Type Anesthesia Type: General (Patient has mild aortic stenosis. Avoid increased heart rate and decreaseblood pressure. Phenylephrine is drug of choice.) History Source History Obtained from:: Patient and Chart Anesthesia Focused Assessment* Temperature: 97.9 F Pulse Rate: 56 Blood Pressure: 158/64 Respiratory Rate: 18 Pulse Ox: 98 Oxygen Delivery Method: Room Air Airway Assessment Mouth opens: >3 cm Mallampati Score: II Teeth Condition: Caps/Crowns (Top front incisors are capped. They are tight.) and Missing (Missing a left upper molar.) Neck Range of motion (ROM): Limited ROM (Severe Restriction) Labs Anesthesia Preop lab: CBC WBC, (4.4-11.0) 4.2 K/mm3 L 01/16/25, 10:02 RBC, (4.2-5.4) 3.52 M/mm3 L 01/16/25, 10:02 Hgb, (12.0-15.0) 11.2 g/dL L 01/16/25, 10:02 Hct, (37-47) 33.2 % L 01/16/25, 10:02 Plt Count, (150-450) 188 K/mm3 01/16/25, 10:02 CHEMISTRY Potassium, (3.3-5.1) 4.0 mmol/L 01/16/25, 10:02 Sodium, (133-145) 135 mmol/L 01/16/25, 10:02 Magnesium, (1.5-2.2) 2.0 mg/dL 10/07/24, 22:22 Phosphorus, (2.5-4.9) 4.1 mg/dL 03/08/24, 05:15 BUN, (4-19) 29 mg/dL H 01/16/25, 10:02 Creatinine, (0.70-1.20) 1.21 mg/dL H 01/16/25, 10:02 Glucose, (70-99) 337 mg/dL H 01/16/25, 10:02 POC Glucose, (74-106) 170 mg/dL H Today, 05:58 TSH, (0.358-3.740) 5.590 uIU/mL H 03/08/24, 05:15 COAG PT, (11.7-14.9) 22.2 SECONDS H 10/09/24, 05:15 Pre-Assessment Diagnosis/Proposed Procedure Planned Operative Procedure(s): (L) Carotid stent, Lead Network Architect, OR Staff, TELEPHONE RECORDER, [place]. Anesthesia History Anesthesia History - bag patcher: Anesthesia History - bag patcher Hx Hospitalization Yes: GI BLEED 10-2401/07/25 09:22 Any Problems With Anesthesia No 01/07/25 09:22 Cholinesterase deficiency No 01/07/25 09:22 You/Your Family Experience No 01/07/25 09:22 fever (hyperthermia) with Relationship Recent Exposure to Contagious No 01/22/25 06:07 Disease Does patient have nerve No 01/07/25 09:22 stimulator Patient instructed to have device shut off --Does patient have Pacemaker No 01/22/25 06:07 or ICD? When Was Last Pacemaker Check QUESTION #4 FULL TEXT: You/Your Family Experience fever (hyperthermia) with Anesthesia Last Oral Intake Last Oral intake: Last Oral Intake NPO since 22:00 01/22/25 06:07 Meds taken in AM with sips of Yes 01/22/25 06:07 water? Meds patient instructed to metoprolol, pantoprazole 01/22/25 06:07 take am of surgery Any additional information?: Yes Meds taken in AM with sips of water?: Yes PONV PONV - bag patcher: PONV - bag patcher Female Yes 01/07/25 09:22 HX of Motion Sickness No 01/07/25 09:22 HX of N/V After Surgery No 01/07/25 09:22 Non-Smoker Yes 01/07/25 09:22 Duration of Surgery greater Yes 01/07/25 09:22 than 60 minutes Number of Risk Factors 3 01/07/25 09:22 PONV Score Moderate Risk 01/07/25 09:22 Height & Weight Height & Weight: Anesthesia: Height & Weight Height 5 ft 3 in 01/22/25 06:07 Weight: 69 kg 01/22/25 06:07 Body Mass Index (BMI) 26.9 01/22/25 06:07 Respiratory Assessment Respiratory Assessment - bag patcher: Respiratory Tract Infection Hx - bag patcher Hx Respiratory Tract Infection No 01/07/25 09:22 STOP Sleep Apnea STOP Sleep Apnea - bag patcher: STOP Sleep Apnea - bag patcher Hx Hypertension Yes 01/07/25 09:22 Hx Sleep Apnea Yes: USES O2 NC 3L AT HS 01/07/25 09:22 CPAP No 01/07/25 09:22 BIPAP No 01/07/25 09:22 Do you snore loudly (louder than talking or can be heard Do you often feel tired/ fatigued/ sleepy during daytime? Has anyone observed you stop breathing during sleep? STOP Results Positive 01/07/25 09:22 QUESTION #5 FULL TEXT : Do you snore loudly (louder than talking or can be heard through closeddoors)? 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 Specify any problems Hx of Preganancy in last 3 No 01/07/25 09:22 Months Nurse Filling Out Transfusion JZOLLINGE 01/07/25 09:22 & Questions: Date: 01/07/25 01/07/25 09:22 Time: 09:24 01/07/25 09:22 Patient unable to answer at this time (ie. confused, unrespo /Reproduction History /Reproductive History - bag patcher: /Reproductive Hx- bag patcher Hx Now No 01/07/25 09:22 Gestational Age (in weeks): EDC: Hx Hx Para Hx Section SAB No 01/07/25 09:22 Active Medications Active Medications: Current Medications Generic Name Dose Route Start Last Admin Trade Name Kp PRN Reason Stop Dose Admin Cefazolin Sodium 2 gm/ Sodium 110 mls @ 200 mls/hr 01/22/25 07:00 Chloride IV 01/22/25 07:32 INTRAOP ONE Lactated Ringer's 1,000 mls @ 15 mls/hr 01/22/25 05:45 01/22/25 06:24 IV 15 mls/hr .Q48H KAVYA Administration PFSH Medical History Wears hearing aid in both ears Diabetes Sleep apnea Hx of cardiovascular stress test Hx of echocardiogram Cardiology follow-up encounter Preop cardiovascular exam (HFpEF) heart failure with preserved ejection fraction Pleural effusion, left TIA (transient ischemic attack) Wears glasses Depression Heartburn Non-smoker On home oxygen therapy Hypertension Gastric ulcer Aortic valve stenosis Atrial fibrillation Dilated cardiomyopathy Prolonged QT interval Elevated blood pressure reading without diagnosis of hypertension Factor V Leiden Anxiety Hypokalemia Acute hypoxemic respiratory failure CHF (congestive heart failure) Home Medications ?Medication ?Instructions ?Recorded ?Last Taken ?Type oxybutynin chloride 10 mg 10 mg PO DAILY bladder 09/2201/21/25 History tablet,extended release 24 hr glimepiride 2 mg tablet 2 mg PO DAILY dm 12/31/23 History ferrous sulfate 325 mg (65 mg 325 mg PO DAILY@1200 sup plement 30 02/03/24 01/20/25 Rx iron) tablet (FeroSul) days #30 tabs furosemide 40 mg tablet 40 mg PO DAILY water pill 30 days 03/19/24 01/21/25 Rx #60 tabs clopidogrel 75 mg tablet 75 mg PO DAILY a fib 30 days #30 04/05/24 01/21/25 Rx tabs pantoprazole 40 mg tablet,delayed 40 mg PO BID reflux 30 days #60 04/05/24 01/22/25 Rx release tabs simvastatin 80 mg tablet 80 mg PO QHS cholesterol 01/21/25 History magnesium chloride 64 mg 128 mg PO DAILY leg cramps 0 08/17/24 01/21/25 History (magnesium chloride) tablet,delayed release (Mag 64) potassium chloride 20 mEq 20 meq PO BID supplement 01/21/25 History tablet,extended release amlodipine 10 mg tablet 10 mg PO .COMPLEX bp #90 tab s 09/04/24 01/21/25 Rx acetaminophen 500 mg capsule 500 mg PO QHS PRN pain 01/21/25 History fluticasone propionate 50 2 spray intranasal Q12H PRN 10/07/24 01/21/25 History mcg/actuation nasal congestion spray,suspension gabapentin 100 mg capsule 100 mg PO TID pain 10/07/24 01/21/25 History metoprolol succinate 25 mg 25 mg PO BID bp #60 tabs 01/22/25 Rx tablet,extended release 24 hr tizanidine 4 mg tablet 2 mg PO Q8 PRN muscle [facility] 12/13/24 01/21/25 History warfarin 2 mg tablet 2 mg PO .COMPLEX afib 01/19/25 History cinnamon bark 500 mg capsule 500 mg PO DAILY supplemen t 01/07/25 01/21/25 History (Cinnamon) coenzyme Q10 100 mg capsule (Co 100 mg PO DAILY supple ment 01/07/25 01/21/25 History Q-10) cranberry 500 mg capsule 500 mg PO DAILY supplement 0 01/07/25 01/21/25 History diphenhydramine HCl 25 mg capsule 25 mg PO .qd allergi es 01/07/25 01/21/25 History (Aler-Cap) lactobacillus combination no.4 3 3,000 mmu cells PO DA MAUREEN supplement 01/07/25 01/21/25 History billion cell capsule (Probiotic) losartan 100 1 tab PO .qd bp 01/07/25 History mg-hydrochlorothiazide 12.5 mg tablet Allergy/AdvReac Type Severity Reaction Status Date / Time benazepril (From Lotensin) Allergy Mild DOESNT Verified 01/22/25 06:01 REMEMBER quinapril (From Accupril) Allergy Mild UNKNOWN Verified 01/22/25 06:01 Sulfa (Sulfonamide Allergy Mild Hives Verified 01/22/25 06:01 Antibiotics) verapamil (From Calan) Allergy Mild UNKNOWN Verified 01/22/25 06:01 Family History Mother Diabetes Father Diabetes CVA (cerebral vascular accident) Heart disease Hypertension Myocardial infarction CAD (coronary artery disease) Brother Myocardial infarction Hypertension Heart disease CAD (coronary artery disease) Sister NAFLD (nonalcoholic fatty liver disease) Other Asthma COPD (chronic obstructive pulmonary disease) Surgical History History of esophagogastroduodenoscopy (EGD) (10/08/24) Hx of amputation History of transmetatarsal amputation of right foot History of femoropopliteal bypass S/P carotid endarterectomy Social History household members: spouse Smoking Status: Never smoker alcohol intake: never substance use type: does not use Review of Systems (Anesthesia) ROS Narrative System reviewed and no additional complaints, except as documented. 01/22/25 0700 chalo ERICKSON> Date _ Kyle Nye MD Cosigner Signature: Date CC: ~ Signed [facility]09-17-2025 NoteHNO ID: [id number] Author: IWONA DONATO RN Service: ? Author Type: Registered Nurse Type: Progress Notes Filed: 01/16/2025 16:30 Note Text: [facility] agrees [facility] NoteHNO ID: [id number] Author: IWONA DONATO RN Service: ? Author Type: Registered Nurse Type: Progress Notes Filed: 01/16/2025 16:30 Note Text: patient had inr completed at [facility] patients inr is 1.4 (patients inr range [...] diet recommend: patient change coumadin to 1mg Mon,Wed,Tue and 2mg all other days and recheck in 3 weeks due to patient will be stopping coumadin on Tuesday for 5 days due to procedure patient has been scheduled for a 3 week follow up inr on 02/06/25 please review and advise on recommendation patient only needs called if provider does not agree with recommendation [facility]08-28-2025 NoteHNO ID: [id number] Author: ANASTASIIA COLÓN APRN.CNS Service: ? Author Type: Nurse Specialist Type: Progress Notes Filed: 12/27/2024 16:32 Note Text: Recommend Coumadin 2 mg Tuesday and 1 mg all other days and check INR in 3 weeksP[facility]08-28-2025 History of Present illness Narrative* Anastasiia Colón APRN.CNS - 12/27/2024 3:29 PM EDT Recommend Coumadin 2 mg Tuesday and 1 mg all other days and check INR in 3 weeks * Iwona Donato RN - 12/27/2024 12:26 PM EDT patient had inr completed at [facility] patients inr is 1.2 (patients inr [...] a 3 week follow up inr on 9/17/25 please review and advise on recommendation patient only needs called if provider does not agree with recommendation documented in this encounterMer[facility]08-28-[facility]25 NoteHNO ID: [id number] Author: IWONA DONATO, RN Service: ? Author Type: Registered Nurse Type: Progress Notes Filed: 12/27/2024 16:32 Note Text: patient had inr completed at [facility] patients inr is 1.2 (patients inr range [...] if provider does not agree with recommendation [facility]08-21-2025 NoteHNO ID: [id number] Author: ANASTASIIA COLÓN APRN.CNS Service: ? Author Type: Nurse Specialist Type: Progress Notes Filed: 12/24/2024 16:32 Note Text: Continue with Coumadin dose unchanged, check INR in 1 weekP[facility]08-21-2025 History of Present illness Narrative* Anastasiia Colón APRN.CNS - 12/20/2024 5:23 PM EDT Continue with Coumadin dose unchanged, check INR in 1 week * Iwona Donato, RN - 12/20/2024 10:08 AM EDT patient had inr completed at [facility] patients inr is 1.7 (patients inr [...] to the missed dose documented in this encounterMer[facility]08-21-2025 NoteHNO ID: [id number] Author: IWONA DONATO, RN Service: ? Author Type: Registered Nurse Type: Progress Notes Filed: 12/24/2024 16:32 Note Text: patient had inr completed at [facility] patients inr is 1.7 (patients inr [...] could be due to the missed dose [facility]08-14-2025 NoteHNO ID: [id number] Author: ANASTASIIA COLÓN APRN.STUDENT EDUCATION SPECIALIST Service: ? Author Type: Nurse Specialist Type: Progress Notes Filed: 12/13/2024 16:26 Note Text: Hold Coumadin tomorrow. Then take 2 mg Coumadin Tuesday and 1 mg all other days. Check INR in 1 weekP[facility]08-14-2025 History of Present illness Narrative* Anastasiia Colón APRN.CNS - 12/13/2024 3:52 PM EDT Hold Coumadin tomorrow. Then take 2 mg Coumadin Graciela and 1 mg all other days. Check INRin 1 week * Iwona Donato RN - 12/13/2024 10:07 AM EDT patient had inr completed at [facility] patients inr is 3.7 (patients inr range is 2.0-3.0) patient is currently taking 2mg daily patients last dose change was on 12/06/24 due to a high level of 4.6 (dose at that time was 3mg Tues,Thurs,Sat and 2mg all other days) patient has had no change in medication except for coumadin and no uninstructed missed doses and nochange in diet recommend: patient hold coumadin tomorrow due to already took medication today and then start on 2mg Tues,Thurs and 1mg all other days and recheck in 1 week patient has been scheduled for a 1 week follow up inr on 12/20/24 please review and advise on recommendation patient only needs called if provider does not agree with recommendation documented in this encounterMer[facility]08-14-2025 NoteHNO ID: [id number] Author: IWONA DONATO RN Service: ? Author Type: Registered Nurse Type: Progress Notes Filed: 12/13/2024 16:26 Note Text: patient had inr completed at [facility] patients inr is 3.7 (patients inr range [...] if provider does not agree with recommendation [facility]08-07-2025 NoteHNO ID: [id number] Author: IWONA DONATO RN Service: ? Author Type: Registered Nurse Type: Progress Notes Filed: 12/06/2024 16:31 Note Text: PATIENT NOTIFIED OF INFORMATIONP[facility] Hospital08-07-2025 NoteHNO ID: [id number] Author: ANASTASIIA COLÓN APRN.STUDENT EDUCATION SPECIALIST Service: ? Author Type: Nurse Specialist Type: Progress Notes Filed: 12/06/2024 16:31 Note Text: Recommend hold Coumadin Tuesday and Tuesday and resume Coumadin at 2 mg daily on Tuesday. Reports already took Coumadin today. Check INR 1 weekP[facility] Hospital08-07-2025 NoteHNO ID: [id number] Author: IWONA DONATO RN Service: ? Author Type: Registered Nurse Type: Progress Notes Filed: 12/06/2024 16:31 Note Text: patient had inr completed at [facility] patients inr is 4.6 (patients inr range is 2.0-3.0) patient is currently taking 3mg Tues,Thurs,Sat and 2mg all other days patients last dose change was on 11/28/24 due to a high level of 3.8 (dose at that time was 2mg Tue,Wed,Tue and 3mg all other days) patient has [...] if provider does not agree with recommendation [facility]07-30-[facility] History of Present illness Narrative* Iwona Donato RN - 11/28/2024 4:13 PM EDT pcp agrees with information * Iwona Donato RN - 11/28/2024 12:14 PM EDT patient had inr completed at [facility] patients inr is 3.8 (patients inr [...] not agree with recommendation documented in this encounterMer[facility]07-30-2025 NoteHNO ID: [id number] Author: IWONA DONATO RN Service: ? Author Type: Registered Nurse Type: Progress Notes Filed: 11/28/2024 16:13 Note Text: pcp agrees with informationP[facility]07-30-2025 NoteHNO ID: [id number] Author: IWONA DONATO RN Service: ? Author Type: Registered Nurse Type: Progress Notes Filed: 11/28/2024 16:13 Note Text: patient had inr completed at [facility] patients inr is 3.8 (patients inr [...] if provider does not agree with recommendation [facility]07-17-2025 Telephone encounter Note* Telephone Encounter - Kaylyn Sagastume - 11/15/2024 8:32 AM EDT Prescription Refill Information The patient [...] Kaylyn Sagastume November 15, 2024 8:[address] [facility]07-17-2025 Miscellaneous Notes* Telephone Encounter - Kaylyn Sagastume - 11/15/2024 8:32 AM EDT Prescription Refill Information The patient [...] 15, 2024 8:33 AM documented in this encounterMer[facility]. [facility]07-02-2025 Telephone encounter Note * Telephone Encounter - Ngozi Rios LPN - 10/31/2024 8:53 AM EDT Patient notified and verbalized understanding. Ngozi Rios LPN [facility]07-02-2025 Miscellaneous Notes* Telephone Encounter - Ngozi Rios LPN - 10/31/2024 8:53 AM EDT Patient notified and verbalized understanding. Ngozi Rios LPN * Telephone Encounter - Kierra Santiago MD - 10/30/2024 8:58 PM EDT The following approved medication requests have been transmitted electronically. Requested Prescriptions Signed Prescriptions Disp Refills glimepiride (AMARYL) 2 mg tablet 180 tablet 1 Sig: Take 1 tablet by mouth two times a day. As directed Authorizing Provider: KIERRA SANTIAGO MD Noted needed 2 per day some days. * Telephone Encounter - Zoey Tom LPN - 10/30/2024 4:37 PM EDT Pt reports she usually took one tablet a day. Pt reports if blood sugars were around 180 or above she would usually take 2 tabs. Pt did not realize she was supposed to call in if her sugars were around 200 or higher. Zoey Tom LPN * Telephone Encounter - Olga Lidia Eubanks MA - 10/29/2024 10:10 AM EDT Tried calling patient to verify how long [...] when taken BID? Olga Lidia Eubanks MA * Telephone Encounter - Yarelis Jenkins - 10/29/2024 8:40 AM EDT Eri is a patient of Kierra Santiago MD today she called [facility] regarding: Disp Refills Start End glimepiride (AMARYL) 2 mg tablet 90 tablet 3 02/23/2024 -- Sig: Take 1 tablet by mouth daily with breakfast. Check blood sugars daily, if remaining above 200 consistently in 2 to 4 weeks will increase the dose Sent to pharmacy as: glimepiride (AMARYL) 2 mg tablet Class: Normal Route: ORAL Order: [id number] E-Prescribing Status: Receipt confirmed by pharmacy (02/23/2024 10:07 AM EDT) Per patient, she is out of medication. However, she stated that she called [facility] and was told that they cannot [...] non-symptom based questions: Thank you for calling [facility], your call will be returned within the next business day. Yarelis Payton documented in this encounterMer[facility]. [facility]07-01-2025 Telephone encounter Note * Telephone Encounter - Kierra Santiago MD - 10/30/2024 8:58 PM EDT The following approved medication requests have been transmitted electronically. Requested Prescriptions Signed Prescriptions Disp Refills glimepiride (AMARYL) 2 mg tablet 180 tablet 1 Sig: Take 1 tablet by mouth two times a day. As directed Authorizing Provider: TALKIERRA TAYLOR MD Noted needed 2 per day some days. [facility]07-01-2025 Telephone encounter Note* Telephone Encounter - Zoey Tom LPN - 10/30/2024 4:37 PM EDT Pt reports she usually took one tablet a day. Pt reports if blood sugars were around 180 or above she would usually take 2 tabs. Pt did not realize she was supposed to call in if her sugars were around 200 or higher. Zoey Tom LPN [facility]06-30-2025 Telephone encounter Note* Telephone Encounter - Olga Lidia Eubanks MA - 10/29/2024 10:10 AM EDT Tried calling patient to verify how long [...] when taken BID? Olga Lidia Eubanks MA [facility]06-30-2025 Telephone encounter Note* Telephone Encounter - [place] Yarelis Payton - 10/29/2024 8:40 AM EDT Eri is a patient of Kierra Santiago MD today she called [facility] regarding: Disp Refills Start End glimepiride (AMARYL) 2 mg tablet 90 tablet 3 02/23/2024 -- Sig: Take 1 tablet by mouth daily with breakfast. Check blood sugars daily, if remaining above 200 consistently in 2 to 4 weeks will increase the dose Sent to pharmacy as: glimepiride (AMARYL) 2 mg tablet Class: Normal Route: ORAL Order: [id number] E-Prescribing Status: Receipt confirmed by pharmacy (02/23/2024 10:07 AM EDT) Per patient, she is out of medication. However, she stated that she called [facility] and was told that they cannot fill [...] non-symptom based questions: Thank you for calling [facility], your call will be returned within the next business day. Yarelis Payton [facility]06-25-2025 NoteHNO ID: [id number] Author: IWONA DONATO RN Service: ? Author Type: Registered Nurse Type: Progress Notes Filed: 10/24/2024 16:31 Note Text: pcp agrees with informationP[facility]06-25-2025 History of Present illness Narrative* Iwona Donato RN - 10/24/2024 4:31 PM EDT pcp agrees with information * Iwona Donato RN - 10/24/2024 11:51 AM EDT patient had inr completed at [facility] patients inr is 2.5 (patients inr [...] for follow up INR. documented in this encounterMer[facility]06-25-2025 NoteHNO ID: [id number] Author: IWONA DONATO RN Service: ? Author Type: Registered Nurse Type: Progress Notes Filed: 10/24/2024 16:31 Note Text: patient had inr completed at [facility] patients inr is 2.5 (patients inr [...] in 1 month (11/28/24) for follow up INR.[facility]06-25-[facility] Instructions* Patient Instructions* Kierra Santiago MD - 10/24/2024 11:40 AM EDT - Continue taking your current Coumadin dose; your INR goal remains about 2-3 and will be monitoredthrough the Coumadin clinic as before. - Maintain a consistent weekly intake of vitamin K foods (leafy greens like spinach, kale or Cambodian chard) so your Coumadin levels stay stable. [...] hear from his office. documented in this encounterMer[facility]. [facility]06-25-2025 NoteHNO ID: [id number] Author: KIERRA SANTIAGO MD Service: ? Author Type: Physician Type: Progress Notes Filed: 01/16/2025 20:04 Note Text: This note was created using Yummlyriter. Subjective Eri Pritchard is a 84 year old female. 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 - Continues on Coumadin therapy managed by the Coumadin clinic; recent INR 2.5. - E (more content not included)...[facility]06-[facility] History of Present illness Narrative* Kierra Santiago MD - 10/24/2024 11:17 AM EDT This note was created using NoteWriter. Subjective Eri Pritchard is a 84 year old female. SUBJECTIVE: Eri Pritchard is a 84-year-old female with a history of Factor V Leiden, atrial fibrillation, and TIA, presenting for follow-up after recent hospitalizations for gastrointestinal bleeding and a two-way bypass surgery. Eri reports two recent hospitalizations for gastrointestinal bleeding, which she attributes to her anticoagulation therapy. During her most recent hospitalization, she received two units of blood, bringing her hemoglobin level from 6.5 g/dL to 8 g/dL. She notes significant weakness when her hemoglobin level was at 6.5 g/dL, stating, I could hardly function. A bleeding ulcer was identified andcauterized during this hospitalization. She is currently on Coumadin, managed by a Coumadin clinic,and her most recent INR was 2.5 on October 24. She denies any changes in her diet that could affect her INR levels. Eri also reports a recent two-way bypass surgery [...] consuming a large amount of dried fruit, whichevelinee attributes to the fruit. She took Imodium and reports that the diarrhea has resolved. She notesa temporary weight loss from 150.4 lbs to 146.8 lbs due to the diarrhea but has since rehydrated. Her blood pressure readings have been stable, with a recent reading of 120/60 mmHg, and her heart rate remains in the 60s to 70s bpm. She monitors her weight, blood pressure, and heart rate daily. Eri mentions a family history of cirrhosis of the liver, with her sister dying at age 62 from thecondition. She denies any history of alcohol use. [...] AND PLAN Kierra Santiago MD Recording using Keek software for draft documentation of the visit was discussed with the patient/authorized sales representative consultant; all questions welcomed and answered. Patient/authorized sales representative consultant agreed to proceed documented in this encounterMer[facility]06-20-2025 Telephone encounter Note * Telephone Encounter - Olga Lidia Eubanks MA - 10/19/2024 11:29 AM EDT Patient has been identified by [...] advise. Thank you. Olga Lidia Eubanks MA. [facility]06-20-2025 Miscellaneous Notes* Telephone Encounter - Olga Lidia Eubanks MA - 10/19/2024 11:29 AM EDT Patient has been identified by [...] advise. Thank you. Olga Lidia Eubanks MA. * Telephone Encounter - Zahra Crocker - 10/19/2024 8:05 AM EDT Eri Parrish says they do not have the script for the clopidogrel and is asking for a new one to be sent in.. * Telephone Encounter - Zahra Crocker - 10/19/2024 8:03 AM EDT Prescription Refill Information The patient [...] times a day for 180 days. Zahra Payton October 19, 2024 8:05 AM documented in this encounterMer[facility]06-20-2025 Telephone encounter Note * Telephone Encounter - Zahra Crocker - 10/19/2024 8:05 AM EDT Eri Parrish says they do not have the script for the clopidogrel and is asking for a new one to be sent in.. [facility] Work Phone: [phone]) 801-6604318586-20-3527 Telephone encounter Note* Telephone Encounter - Zahra Crocker - 10/19/2024 8:03 AM EDT Prescription Refill Information The patient [...] times a day for 180 days. Zahra Payton October 19, 2024 8:[address] [facility]06-11-2025 Discharge summary Author Shaan Monae [facility] Note Date/Time October 10, 2024 3:38 pm [facility] Medical Records Department [address] [place] [id number] Discharge Summary 10/10/24 1528 MR#: [id number] Acct: [id number] Name: ERI PRITCHARD Rep #:[id number] : 1940 83 From: Shaan Monae DO PCP: Dr. Kierra Santiago MD Status:AD M IN Location: [facility] [id number] Providers Date of Admission: 10/07/24 Primary Care Physician: Dr. Kierra Santiago MD Consultations 10/08/24 00:58 Consult: Gastroenterology Routine Consulting Provider: [facility] Reason for Consult: ABLA, GI bleed [...] (Auto) 76.5 H, Lymph % (Auto) 12.0 L,[place] % (Auto) 9.6, Eos % (Auto) 1.3, [...] Self Care Charges/Coding Visit Charges Inpatient E&M: 24571 Disch Hosp >30min 10/10/24 1538 <Electronically signed by Shaan Monae DO> Cosigner Signature (if applicable): CC: Dr. Shaan Monae DO; Dr. Kierra Santiago MD~ Signed [facility] Work Phone: 1(869) 420-587206-11-2025 Progress note Author Shaan Monae [facility] Note Date/Time October 10, 2024 3:27 pm [facility] Medical Records Department [address] [place] [address] Progress Note - Hospitalist 10/10/24 0808 MR#: [id number] Acct: [id number] Name: ERI PRITCHARD Rep #:[id number] : 1940 83 From: Shaan Monae DO PCP: Dr. Kierra Santiago MD Status:AD M IN Location: [place] [address] Reason for Visit Reason for Visit: Diagnoses [...] (Auto) 76.5 H, Lymph % (Auto) 12.0 L,[place] % (Auto) 9.6, Eos % (Auto) 1.3, [...] Cosigner Signature (if applicable): CC: ~ Signed [facility] Work Phone: 1(150) 476-514206-11-2025 Discharge summary [facility] Medical Records Department [address] [place] [address] Discharge Summary 10/10/24 1528 MR#: [id number] Acct: [id number] Name: ERI PRITCHARD Rep #:[id number] : 1940 83 From: Shaan Monae DO PCP: Dr. Kierra Santiago MD Status:AD M IN Location: [place] [address] Providers Date of Admission: 10/07/24 Primary Care Physician: Dr. Kierra Santiago MD Consultations 10/08/24 00:58 Consult: Gastroenterology Routine Consulting Provider: [facility] Reason for Consult: ABLA, GI bleed [...] (Auto) 76.5 H, Lymph % (Auto) 12.0 L,[place] % (Auto) 9.6, Eos % (Auto) 1.3, [...] Self Care Charges/Coding Visit Charges Inpatient E&M: 24312 Disch Hosp >30min 10/10/24 2769 Cosigner Signature (if applicable): CC: Dr. Shaan Monae DO; Dr. Kierra Santiago MD~ Signed [facility]06-11-2025 [facility]06-11-2025 Progress note [facility] Medical Records Department [address] [place] [address] Progress Note - Hospitalist 10/10/24807 MR#: [id number] Acct: [id number] Name: ERI PRITCHARD Rep #:[id number] : 1940 83 From: Shaan Monae DO PCP: Dr. Kierra Santiago MD Status:AD M IN Location: [place] [id number] Reason for Visit Reason for Visit: [...] (Auto) 76.5 H, Lymph % (Auto) 12.0 L,[place] % (Auto) 9.6, Eos % (Auto) 1.3, [...] Cosigner Signature (if applicable): CC: ~ Signed [facility]06-11-2025 Procedure note [facility] Medical Records Department [address] [place] [address] EGD Report MR#: [id number] Acct: [id number] Name: ERI PRITCHARD Rep #:[id number] : 1940 83 From: [place] Giron DO PCP: Dr. Kierra Santiago MD Status:AD M IN Patient Name: Eri Pritchard Procedure Date: 10/09/2024 11:01 AM Date [...] present medications. Procedure Code(s): --- Professional --- 70507, Small intestinal endoscopy, enteroscopy beyond second portion of duodenum, not including ileum; diagnostic, including collection of specimen(s) by brushing or washing, when performed (separate procedure) CPT copyright 2021 [employer]. All rights reserved. The codes documented in this report are preliminary and upon ambulance assistant review may be revised to meet current [...] signed electronically. 10/10/24 1456 Date _ Robb Flores Signature: Date (if indicated) CC: Dr. Kierra Santiago MD; Robb Giron DO ~ Date Dictated: 10/09/24 1101 Date Transcribed: Preschool Aide: RF Signed [facility]06-11-2025 Procedure note [facility] Medical Records Department [address] [place] [address] Operative Report - CC Letter MR#: [id number] Acct: [id number] Name: ERI PRITCHARD Rep #:[id number] : 1940 83 From: Robb Giron DO PCP: Dr. Kierra Santiago MD Status:AD M IN 10/10/2024 Kierra Santiago [address] [place] [address] Re : Upper GI endoscopy procedure for Eri Pritchard Dear Dr. Santiago This procedure was [...] to contact me at . Sincerely, Robb Giron DO 10/09/2024 12:11:26 PM This report has been signed electronically. 10/10/24 1456 Date _ Robb Flores Signature: Date (if indicated) CC: Dr. Kelsie Muñoz MD; Dr. Shaan Monae DO; Dr. Kierra Santiago MD; Dr. Roly Herrera MD ~ Date Dictated: 10/09/24 1101 Date Transcribed: Preschool Aide: RF Signed [facility]06-10-2025 Consult note Author Stephanie Reardon [facility] Note Date/Time October 09, 2024 4:01 pm [facility] Medical Records Department [address] [place] [address] Anesthesia Postop Eval I 10/09/24 1203 MR#: [id number] Acct: [id number] Name: ERI PRITCHARD Rep #:[id number] : 1940 83 From: Stephanie ruano REWORK MACHINE OPERATOR PCP: Dr. Kierra Santiago MD Status:AD M IN Y Race: C Location: [address] Anesthesia: Postop Eval I Current Vital Signs [...] 10/09/24 1601 <Electronically signed by Stephanie castañeda REWORK MACHINE OPERATOR> Date _ Stephanie Reardon CRNA 10/09/24 1335<Electronically signed by Enrique Browne MD> Cosigner Signature: Date Enrique Browne MD CC: ~ Signed [facility] Work Phone: 1(646) 102-205506-10-2025 Progress note Author Shaan Monae [facility] Note Date/Time October 09, 2024 2:28 pm [facility] Medical Records Department [address] [place] [address] Progress Note - Hospitalist 10/09/24 0826 MR#: [id number] Acct: [id number] Name: ERI PRITCHARD Rep #:[id number] : 1940 83 From: Shaan Monae DO PCP: Dr. Kierra Santiago MD Status:AD M IN Location: [place] [address] Reason for Visit Reason for Visit: Diagnoses [...] (Auto) 73.2 H, Lymph % (Auto)15.5 L, [place] % (Auto) 9.5, Eos % (Auto) 0.8, [...] 70.7 H, Lymph % (Auto) 18.2 L, [place] % (Auto) 9.1, Eos % (Auto) 1.4, [...] prophylaxis: SCDs. Charges/Coding Visit Charges Inpatient E&M: 85511 Subs Hosp L2 10/09/24 1428 <Electronically signed by Shaan Monae DO> Cosigner Signature (if applicable): CC: ~ Signed [facility] Work Phone: 1(835) 615-222906-10-2025 Consult note [facility] Medical Records Department [address] [place] [address] Anesthesia Postop Eval I 10/09/24 1203 MR#: [id number] Acct: [id number] Name: ERI PRITCHARD Rep #:[id number] : 1940 83 From: Stephanie ruano REWORK MACHINE OPERATOR PCP: Dr. Kierra Santiago MD Status:AD M IN Y Race: C Location: [place] [address] 08-30 Anesthesia: Postop Eval I Current Vital [...] Eval 1 completed: Yes 10/09/24 1601 garry REWORK MACHINE OPERATOR> Date _ Stephanie Reardon REWORK MACHINE OPERATOR 10/09/24 1335 Cosigner Signature: Date Enrique Browne MD CC: ~ Signed [facility]06-10-2025 Consult note Author Enrique [facility] Note Date/Time October 09, 2024 12:5 5pm [facility] Medical Records Department [address] [place] [address] Anesthesia Postop Eval II 10/09/24 1255 MR#: [id number] Acct: [id number] Name: ERI PRITCHARDINE Rep #:[id number] : 1940 83 From: Enrique Browne MD PCP: Dr. Kierra Santiago MD Status:AD M IN Y Race: C Location: [place] [address] 08-30 Anesthesia Postop Eval I Sum Postop Eval Completion status Anesthesia document: Postop Eval 1 completed: Yes Anesthesia Postop Eval I Summary Anesthesia Postop Eval I Summary: Anesthesia Postop Eval I: Assessment Summary 3 Airway patent Yes 10/09/24 12:04 REWORK MACHINE OPERATOR.SKOBY Spontaneous unlabored Yes 10/09/24 12:04 REWORK MACHINE OPERATOR.SKOBY respirations Mental status Awake,Calm 10/09/24 12:04 REWORK MACHINE OPERATOR.SKOBY nausea No 10/09/24 12:04 REWORK MACHINE OPERATOR.SKOBY Vomiting No 10/09/24 12:04 REWORK MACHINE OPERATOR.SKOBY Anesthesia Postop Eval I: Fluid Summary Crystalloid volume administer 200 10/09/24 12:04 REWORK MACHINE OPERATOR.SKOBY (ml) Colloids volume administered ( ml) Blood Product volume administered (ml) Total IV fluid infused 200 10/09/24 12:04 REWORK MACHINE OPERATOR.SKOBY Anesthesia Postop Eval I: Summary Notes Anesthesia Complication No 10/09/24 12:04 REWORK MACHINE OPERATOR.SKOBY Anesthesia Complication Comment: Post-operative progress note Anesthesia: Postop Eval II Evaluation Mental status: Awake Pain Level: 0 nausea: No Vomiting: No 10/09/24 1255 <Electronically signed by Enrique Browne MD > Date _ Enrique Browne MD Cosigner Signature: Date CC: ~ Signed [facility] Work Phone: [phone]) 858-190506-10-2025 Progress note [facility] Medical Records Department [address] [place] [address] Progress Note - Hospitalist 10/09/24825 MR#: [id number] Acct: [id number] Name: ERI PRITCHARD Rep #:[id number] : 1940 83 From: Shaan Monae DO PCP: Dr. Kierra Santiago MD Status:AD M IN Location: [place] [address] Reason for Visit Reason for Visit: Diagnoses [...] (Auto) 73.2 H, Lymph % (Auto)15.5 L, [place] % (Auto) 9.5, Eos % (Auto) 0.8, [...] 70.7 H, Lymph % (Auto) 18.2 L, [place] % (Auto) 9.1, Eos % (Auto) 1.4, [...] prophylaxis: SCDs. Charges/Coding Visit Charges Inpatient E&M: 14847 Subs Hosp L2 10/09/24 1428 Cosigner Signature (if applicable): CC: ~ Signed [facility]06-10-2025 Progress note Author Robb Friend [facility] Note Date/Time October 09, 2024 11:3 1am [facility] Medical Records Department [address] [place] [address] Progress Note 10/09/24 1130 MR#: [id number] Acct: [id number] Name: ERI PRITCHARD Rep #:[id number] : 1940 83 From: Robb Giron DO PCP: Dr. Kierra Santiago MD Status:AD M IN Location: [place] [address] Progress Note Patient has been n.p.o. for [...] gastric ulcer. -EGD Visit Charges Inpatient E&M: 70672 Subs Hosp L3 10/09/24 1131 <Electronically signed by Robb Giron DO> Robb Giron DO Cosigner Signature (if applicable): CC: ~ Signed [facility] Work Phone: [phone]) 927-774206-10-2025 Consult note [facility] Medical Records Department [address] [place] [address] Anesthesia Postop Eval II 10/09/24 1255 MR#: [id number] Acct: [id number] Name: ERI PRITCHARD Rep #:[id number] : 1940 83 From: Enrique Browne MD PCP: Dr. Kierra Santiago MD Status:AD M IN Y Race: C Location: [place] [address] 5-1 Anesthesia Postop Eval I Sum Postop Eval Completion status Anesthesia document: Postop Eval 1 completed: Yes Anesthesia Postop Eval I Summary Anesthesia Postop Eval I Summary: Anesthesia Postop Eval I: Assessment Summary 3 Airway patent Yes 10/09/24 12:04 REWORK MACHINE OPERATOR.SKOBY Spontaneous unlabored Yes 10/09/24 12:04 REWORK MACHINE OPERATOR.SKOBNancy respirations Mental status Awake,Calm 10/09/24 12:04 REWORK MACHINE OPERATOR.SKOBY nausea No 10/09/24 12:04 REWORK MACHINE OPERATOR.SKOBY Vomiting No 10/09/24 12:04 REWORK MACHINE OPERATOR.SKOBY Anesthesia Postop Eval I: Fluid Summary Crystalloid volume administer 200 10/09/24 12:04 REWORK MACHINE OPERATOR.SKOBY (ml) Colloids volume administered ( ml) Blood Product volume administered (ml) Total IV fluid infused 200 10/09/24 12:04 REWORK MACHINE OPERATOR.SKOBY Anesthesia Postop Eval I: Summary Notes Anesthesia Complication No 10/09/24 12:04 REWORK MACHINE OPERATOR.SKOBY Anesthesia Complication Comment: Post-operative progress note Anesthesia: Postop Eval II Evaluation Mental status: Awake Pain Level: 0 nausea: No Vomiting: No 10/09/24 1255 > Date _ Enrique Browne MD Cosigner Signature: Date CC: ~ Signed [facility]06-10-2025 Consult note Author Enrique Browne [facility] Note Date/Time October 09, 2024 10:2 3am [facility] Medical Records Department [address] [place] [address] Pre-Anesthesia Evaluation 10/09/24 1022 MR#: [id number] Acct: [id number] Name: ERI PRITCHARD Rep #:[id number] : 1940 83 From: Enrique Browne MD PCP: Dr. Kierra Santiago MD Status:AD M IN Y Race: C Location: [place] [address] ASA Classification* ASA Classification ASA Classification: 3 [...] Procedure(s): EGD. Anesthesia History Anesthesia History - bag patcher: Anesthesia History - bag patcher Hx Hospitalization Yes: [facility] 01-2308/17/24 10:51 Any Problems With Anesthesia No [...] take am of surgery PONV PONV - bag patcher: PONV - bag patcher Female HX of Motion Sickness HX of N/V After Surgery Non-Smoker Duration of Surgery greater than 60 minutes Number of Risk Factors PONV Score Height & Weight Height & Weight: Anesthesia: Height & Weight Height 5 ft 3 in 10/09/24 10:20 Weight: 68.4 kg 10/09/24 10:20 Body Mass Index (BMI) 26.6 10/09/24 10:20 Respiratory Assessment Respiratory Assessment - bag patcher: Respiratory Tract Infection Hx - bag patcher Hx Respiratory Tract Infection No 10/09/24 00:03 STOP Sleep Apnea STOP Sleep Apnea - bag patcher: STOP Sleep Apnea - bag patcher Hx Hypertension Yes 10/08/24 10:36 Hx Sleep [...] Tobacco Use History Tobacco Use History - bag patcher: Tobacco Use History - bag patcher Tobacco Use Smoking Status Never smoker 10/08/24 01:19 Hx Tobacco Use No 10/08/24 01:19 Years Smoking Packs Smoked per Day Smoking Cessation Date was within the last 15 years Hx Smoking Cessation Date Hx Smoking Cessation Counseling Hematologic Medial History Hematologic Hx - bag patcher: 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 Hx of Blood Transfusion Yes 10/08/24 01:19 [...] confused, unrespo /Reproduction History /Reproductive History - bag patcher: /Reproductive Hx- bag patcher Hx Now No 10/09/24 00:03 Gestational Age [...] 10 Mg Tablet PO Not Given DAILY [facility] Protocol Atorvastatin Calcium 40 mg 10/08/24 22:00 10/08/24 21:13 Atorvastatin Calcium 40 Mg Tablet PO 40 mg QHS KAVYA Administration Ferrous Sulfate 325 mg 10/08/24 12:00 10/08/24 11:36 Ferrous Sulfate 325 Mg Tablet PO Not Given DAILY@1200 [facility] Fluticasone Propionate 2 spray 10/08/24 03:58 Fluticasone 0.05% 1 [place] Nasal.Sry NASAL Q12H PRN PRN congestion Furosemide 40 mg 10/08/24 10:00 10/08/24 11:36 Furosemide 40 Mg Tablet PO Not Given DAILY [facility] Protocol Gabapentin 100 mg 10/08/24 08:00 10/08/24 [...] mls @ 15 mls/hr 10/08/24 00:59 IV .[id number] PRN Saline Flush Sodium Chloride 250 mls @ 15 mls/hr 10/08/24 00:59 IV .[id number] PRN Additional IVPB Infusion Sodium Chloride 500 mls @ 15 mls/hr 10/08/24 00:59 10/08/24 08:10 IV 0 mls/hr PRN PRN Infusion Blood Transfusion Lactated Ringer's 1,000 mls @ 15 mls/hr 10/09/24 10:30 IV .Q48H KAVYA Insulin Human Lispro 0 unit 10/08/24 06:00 10/09/24 06:31 Insulin Lispro 100 Unit/Ml Insuln.Pen SC Not Given Q6 [facility] Protocol Losartan Potassium 100 mg 10/08/24 10:00 10/08/24 11:35 Losartan Potassium 100 Mg Tablet PO Not Given DAILY [facility] Protocol Melatonin 3 mg 10/08/24 00:58 Melatonin 3 Mg Tablet PO QHS PRN PRN INSOMNIA Metoprolol Succinate 25 mg 10/09/24 10:00 Metoprolol(Xl)Succ 25 Mg Tablet PO BID [facility] Protocol Nitroglycerin 0.4 mg 10/08/24 00:58 Nitroglycerin (Inpatient Use) 0.4 Mg Tab.Subl SL Q5M PRN CARDIAC/CHEST PAIN Ondansetron HCl 4 mg 10/08/24 00:58 Ondansetron 4 Mg/2 Ml Vial IV Q8H PRN PRN NAUSEA/VOMITING Potassium Chloride 20 meq 10/08/24 08:00 10/08/24 11:35 Potassium Chloride Oral Tablet 20 Meq PO Not Given DAILY [facility] Prochlorperazine Edisylate 5 mg 10/08/24 00:58 Prochlorperazine 10 Mg/2 Ml Vial IV Q4H PRN PRN Breakthrough Nausea/Vomiting Sertraline HCl 25 mg 10/08/24 10:00 10/08/24 11:36 Sertraline 50 Mg Tablet PO Not Given DAILY [facility] Sodium Chloride 10 - 40 ml 10/08/24 00:59 10/08/24 21:10 0.9% Saline Lock 10 Ml Syringe IV 10 ml UD PRN Administration SALINE FLUSH Tolterodine Tartrate 2 mg 10/08/24 10:00 10/08/24 11:36 Tolterodine Tartrate 2 Mg Cap.Sa PO Not Given DAILY [facility] PFSH Medical History TIA (transient ischemic attack) [...] MD Cosigner Signature: Date CC: ~ Signed [facility] Work Phone: 1(119) 138-435106-10-2025 Progress note [facility] Medical Records Department [address] [place] [address] Progress Note 10/09/24 1130 MR#: [id number] Acct: [id number] Name: ERI PRITCHARD Rep #:[id number] : 1940 83 From: Robb Friend DO PCP: Dr. Kierra Santiago MD Status:AD M IN Location: [place] [address] Progress Note Patient has been n.p.o. for [...] gastric ulcer. -EGD Visit Charges Inpatient E&M: 28343 Subs Hosp L3 10/09/24 1131 Robb Friend DO Mack Signature (if applicable): CC: ~ Signed [facility]06-10-2025 Progress note Author Roly Herrera [facility] Note Date/Time October 09, 2024 8:59 am [facility] Medical Records Department [address] [place] [address] Progress Note - Cardiology 10/09/24 0849 MR#: [id number] Acct: [id number] Name: ERI PRITCHARD Rep #:[id number] : 1940 83 From: Roly Herrera MD PCP: Dr. Kierra Santiago MD Status:AD M IN Location: [place] [address] Subjective Subjective Patient sleeping soundly and was [...] (Auto) 73.2 H, Lymph % (Auto)15.5 L, [place] % (Auto) 9.5, Eos % (Auto) 0.8, [...] 70.7 H, Lymph % (Auto) 18.2 L, [place] % (Auto) 9.1, Eos % (Auto) 1.4, [...] 73.2 H, Lymph % (Auto) 15.5 L, [place] % (Auto) 9.5, Eos % (Auto) 0.8, [...] 70.7 H, Lymph % (Auto) 18.2 L, [place] % (Auto) 9.1, Eos % (Auto) 1.4, [...] as indicated. Charges/Coding Visit Charges Inpatient E&M: 45318 Subs Hosp L2 10/09/24 0859 <Electronically signed by Roly Hrerera MD> Cosigner Signature (if applicable): CC: ~ Signed [facility] Work Phone: 1(237) 240-892806-10-2025 Consult note [facility] Medical Records Department [address] [place] [address] Pre-Anesthesia Evaluation 10/09/24 1022 MR#: [id number] Acct: [id number] Name: ERI PRITCHARD Rep #:[id number] : 1940 83 From: Enrique Browne MD PCP: Dr. Kierra Santiago MD Status:AD M IN Y Race: C Location: [place] [address] ASA Classification* ASA Classification ASA Classification: 3 [...] Procedure(s): EGD. Anesthesia History Anesthesia History - bag patcher: Anesthesia History - bag patcher Hx Hospitalization Yes: [facility] -08/17/24 10:51 Any Problems With Anesthesia No [...] take am of surgery PONV PONV - bag patcher: PONV - bag patcher Female HX of Motion Sickness HX of N/V After Surgery Non-Smoker Duration of Surgery greater than 60 minutes Number of Risk Factors PONV Score Height & Weight Height & Weight: Anesthesia: Height & Weight Height 5 ft 3 in 10/09/24 10:20 Weight: 68.4 kg 10/09/24 10:20 Body Mass Index (BMI) 26.6 10/09/24 10:20 Respiratory Assessment Respiratory Assessment - bag patcher: Respiratory Tract Infection Hx - bag patcher Hx Respiratory Tract Infection No 10/09/24 00:03 STOP Sleep Apnea STOP Sleep Apnea - bag patcher: STOP Sleep Apnea - bag patcher Hx Hypertension Yes 10/08/24 10:36 Hx Sleep [...] Tobacco Use History Tobacco Use History - bag patcher: Tobacco Use History - bag patcher Tobacco Use Smoking Status Never smoker 10/08/24 01:19 Hx Tobacco Use No 10/08/24 01:19 Years Smoking Packs Smoked per Day Smoking Cessation Date was within the last 15 years Hx Smoking Cessation Date Hx Smoking Cessation Counseling Hematologic Medial History Hematologic Hx - bag patcher: 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 Hx of Blood Transfusion Yes 10/08/24 01:19 [...] confused, unrespo /Reproduction History /Reproductive History - bag patcher: /Reproductive Hx- bag patcher Hx Now No 10/09/24 00:03 Gestational Age [...] 10 Mg Tablet PO Not Given DAILY [facility] Protocol Atorvastatin Calcium 40 mg 10/08/24 22:00 10/08/24 21:13 Atorvastatin Calcium 40 Mg Tablet PO 40 mg QHS KAVYA Administration Ferrous Sulfate 325 mg 10/08/24 12:00 10/08/24 11:36 Ferrous Sulfate 325 Mg Tablet PO Not Given DAILY@1200 [facility] Fluticasone Propionate 2 spray 10/08/24 03:58 Fluticasone 0.05% 1 [place] Nasal.Sry NASAL Q12H PRN PRN congestion Furosemide 40 mg 10/08/24 10:00 10/08/24 11:36 Furosemide 40 Mg Tablet PO Not Given DAILY [facility] Protocol Gabapentin 100 mg 10/08/24 08:00 10/08/24 [...] mls @ 15 mls/hr 10/08/24 00:59 IV .[id number] PRN Saline Flush Sodium Chloride 250 mls @ 15 mls/hr 10/08/24 00:59 IV .[id number] PRN Additional IVPB Infusion Sodium Chloride 500 mls @ 15 mls/hr 10/08/24 00:59 10/08/24 08:10 IV 0 mls/hr PRN PRN Infusion Blood Transfusion Lactated Ringer's 1,000 mls @ 15 mls/hr 10/09/24 10:30 IV .Q48H [facility] Insulin Human Lispro 0 unit 10/08/24 06:00 10/09/24 06:31 Insulin Lispro 100 Unit/Ml Insuln.Pen SC Not Given Q6 [facility] Protocol Losartan Potassium 100 mg 10/08/24 10:00 10/08/24 11:35 Losartan Potassium 100 Mg Tablet PO Not Given DAILY [facility] Protocol Melatonin 3 mg 10/08/24 00:58 Melatonin 3 Mg Tablet PO QHS PRN PRN INSOMNIA Metoprolol Succinate 25 mg 10/09/24 10:00 Metoprolol(Xl)Succ 25 Mg Tablet PO BID [facility] Protocol Nitroglycerin 0.4 mg 10/08/24 00:58 Nitroglycerin (Inpatient Use) 0.4 Mg Tab.Subl SL Q5M PRN CARDIAC/CHEST PAIN Ondansetron HCl 4 mg 10/08/24 00:58 Ondansetron 4 Mg/2 Ml Vial IV Q8H PRN PRN NAUSEA/VOMITING Potassium Chloride 20 meq 10/08/24 08:00 10/08/24 11:35 Potassium Chloride Oral Tablet 20 [facility]eq [facility] Prochlorperazine Edisylate 5 mg 10/08/24 00:58 Prochlorperazine 10 Mg/2 Ml Vial IV Q4H PRN PRN Breakthrough Nausea/Vomiting Sertraline HCl 25 mg 10/08/24 10:00 10/08/24 11:36 Sertraline 50 Mg Tablet PO Not Given DAILY [facility] Sodium Chloride 10 - 40 ml 10/08/24 00:59 10/08/24 21:10 0.9% Saline Lock 10 Ml Syringe IV 10 ml UD PRN Administration SALINE FLUSH Tolterodine Tartrate 2 mg 10/08/24 10:00 10/08/24 11:36 Tolterodine Tartrate 2 Mg Cap.Sa PO Not Given DAILY [facility] Medical History TIA (transient ischemic attack) Wears [...] PO DAILY 30 days #30 t abs 12/05/24 Unknown Rx pantoprazole 40 mg tablet,delayed 40 [...] MD Cosigner Signature: Date CC: ~ Signed [facility]06-10-2025 Progress note [facility] Medical Records Department [address] [facility] [place] [address] Progress Note - Cardiology 10/09/24 0849 MR#: [id number] Acct: [id number] Name: ERI PRITCHARD Rep #:[id number] : 1940 83 From: Roly Herrera MD PCP: Dr. Kierra Santiago MD Status:AD M IN Location: [place] [address] Subjective Subjective Patient sleeping soundly and was [...] (Auto) 73.2 H, Lymph % (Auto)15.5 L, [place] % (Auto) 9.5, Eos % (Auto) 0.8, [...] 126 H 10/09/24 00:03: POC Glucose 103 06/10/25 05:15: WBC 6.6, RBC 2.57 L, Hgb 8.0 L, Hct 24.5 L, MCV 95.3, MCH 31.1, MCHC 32.7, RDW Std Deviation 76.2 H, RDW Coeff of Kate 22.8 H, Plt Count 192, MPV9.9, Immature Gran % (Auto) 0.300, Neut% (Auto) 70.7 H, Lymph % (Auto) 18.2 L, [place] % (Auto) 9.1, Eos % (Auto) 1.4, [...] 73.2 H, Lymph % (Auto) 15.5 L, [place] % (Auto) 9.5, Eos % (Auto) 0.8, [...] 70.7 H, Lymph % (Auto) 18.2 L, [place] % (Auto) 9.1, Eos % (Auto) 1.4, [...] as indicated. Charges/Coding Visit Charges Inpatient E&M: 28619 Subs Hosp L2 10/09/24 0859 Cosigner Signature (if applicable): CC: ~ Signed [facility]06-09-2025 Progress note Author Shaan Monae [facility] Note Date/Time October 08, 2024 4:03p m [facility] Medical Records Department [address] [place] [address] Progress Note - Hospitalist 10/08/24 1557 MR#: [id number] Acct: [id number] Name: ERI PRITCHARD Rep #:[id number] : 1940 83 From: Shaan Monae DO PCP: Dr. Kierra Santiago MD Status:AD M IN Location: [place] [id number]- 1 Reason for Visit Reason for Visit: [...] (Auto) 71.8 H, Lymph %(Auto) 18.2 L, [place] % (Auto) 8.9, Eos % (Auto) 0.4, [...] (Auto) 73.2 H, Lymph % (Auto)15.5 L, [place] % (Auto) 9.5, Eos % (Auto) 0.8, [...] pleural effusion and mild cardiomegaly. Reading Location: [facility] Rhythm Strip Rhythm Strip: Sinus Rhythm Rate: [...] prophylaxis: SCDs. Charges/Coding Visit Charges Inpatient E&M: 23569 Subs Hosp L2 10/08/24 1603 <Electronically signed by Shaan Monae DO> Cosigner Signature (if applicable): CC: ~ Signed [facility] Work Phone: 1(423) 612-268106-09-2025 Progress note [facility] Medical Records Department [address] [place] [address] Progress Note - Hospitalist 10/08/24 9347 MR#: [id number] Acct: [id number] Name: ERI PRITCHARD Rep #:[id number] : 1940 83 From: Shaan Monae DO PCP: Dr. Kierra Santiago MD Status:AD M IN Location: [place] [address] Reason for Visit Reason for Visit: Diagnoses [...] (Auto) 71.8 H, Lymph %(Auto) 18.2 L, [place] % (Auto) 8.9, Eos % (Auto) 0.4, Baso % (Auto) 0.3, Absolute Neuts (auto) 5.3, Absolute Lymphs (auto) 1.35, Nucleated RBC % 1.5, DifferentialComment SCANNED, Platelet Estimate ADEQUATE, Polychromasia 2+, Anisocytosis 2+, PT 29.4 H, INR 2.7, Knlipz562, Potassium 3.9, Chloride 102, Carbon Dioxide 16.2L, [...] (Auto) 73.2 H, Lymph % (Auto)15.5 L, [place] % (Auto) 9.5, Eos % (Auto) 0.8, [...] pleural effusion and mild cardiomegaly. Reading Location: [id number] Rhythm Strip Rhythm Strip: Sinus Rhythm Rate: [...] prophylaxis: SCDs. Charges/Coding Visit Charges Inpatient E&M: 81678 Subs Hosp L2 10/08/24 1603 Cosigner Signature (if applicable): CC: ~ Signed [facility]06-09-2025 Consult note Author Roly Herrera [facility] Note Date/Time October 08, 2024 8:56a m [facility] Medical Records Department [address] [place] [address] Consultation - Cardiology 10/08/24 0836 MR#: [id number] Acct: [id number] Name: ERI PRITCHARD Rep #:[id number] : 1940 83 From: Roly Herrera MD PCP: Dr. Kierra Santiago MD Status:AD M IN [facility] Assessment & Plan Assessment/Plan (1) ABLA [...] with history of atrial fibrillation. HPI Narrative: ERI PRITCHARD, is a 83 F who presents [...] recently. She was last evaluated in the [facility] office in June 2024 where [...] on admission. This is monitored through the [facility] Coumad[facility] clinic. Currently the patient is resting comfortably in the seated position in her bed. [facility] Medical History (Updated 10/08/24 @ 08:55 by [...] 8% Risk Charges/Coding Visit Charges Inpatient E&M: 88081 Init Hosp L3 Objective Data Vital Signs: [...] (Auto) 71.8 H, Lymph %(Auto) 18.2 L, [place] % (Auto) 8.9, Eos % (Auto) 0.4, [...] 71.8 H, Lymph % (Auto) 18.2 L, [place] % (Auto) 8.9, Eos % (Auto) 0.4, [...] pleural effusion and mild cardiomegaly. Reading Location: [facility] 10/08/24 0856 <Electronically signed by Roly Herrera MD> Cosigner Signature (if applicable): CC: Dr. Kierra Santiago MD~ Signed [facility] Work Phone: 1(937) 995-788306-09-2025 Consult note [facility] Medical Records Department [address] [place] [address] Consultation - Cardiology 10/08/24835 MR#: [id number] Acct: [id number] Name: ERI PRITCHARD Rep #:[id number] : 1940 83 From: Roly Herrera MD PCP: Dr. Kierra Santiago MD Status:AD M IN [facility] Assessment & Plan Assessment/Plan (1) ABLA [...] with history of atrial fibrillation. HPI Narrative: ERI PRITCHARD, is a 83 F who presents [...] recently. She was last evaluated in the [place] office in June 2024 where [...] She had also started using her oxygen 24/7 on 10/06/2024. And she had developeda recumbent [...] on admission. This is monitored through the [facility] Coumadin clinic. Currently the patient is resting comfortably in the seated position in her bed. [facility] Medical History (Updated 10/08/24 @ 08:55 by [...] 8% Risk Charges/Coding Visit Charges Inpatient E&M: 58320 Init Hosp L3 Objective Data Vital Signs: [...] (Auto) 71.8 H, Lymph %(Auto) 18.2 L, Walworth % (Auto) 8.9, Eos % (Auto) 0.4, Baso % (Auto) 0.3, Absolute Neuts (auto) 5.3, Absolute Lymphs (auto) 1.35, Nucleated RBC % 1.5, DifferentialComment SCANNED, Platelet Estimate ADEQUATE, Polychromasia 2+, Anisocytosis 2+, PT 29.4 H, INR 2.7, Mijbrn583, Potassium 3.9, Chloride 102, Carbon Dioxide 16.2L, [...] 71.8 H, Lymph % (Auto) 18.2 L, Walworth % (Auto) 8.9, Eos % (Auto) 0.4, [...] pleural effusion and mild cardiomegaly. Reading Location: [facility] 10/08/24 0856 Cosigner Signature (if applicable): CC: Dr. Kierra Santiago MD~ Signed [facility]06-09-2025 Discharge summary Author Matheus Fabian [facility] Note Date/Time October 08, 2024 1:12a m [facility] Medical Records Department [address] [place] [address] Emergency Department Summary 10/07/24 MR#: [id number] Acct: [id number] Name: ERI PRITCHARD Rep #:[id number] : 1940 83 From: Matheus Fabian MD PCP: Dr. Kierra Santiago MD Status:AD M IN Location: [place] [address] HPI History of Present Illness Chief Complaint: [...] darker as well but she takes iron. [facility] Medical History TIA (transient ischemic attack) Wears [...] mg PO DAILY water pill 30 days 11/18/24 09/27/24 Rx #60 tabs clopidogrel 75 mg tablet [...] 71.8 H Lymph % (Auto) 18.2 L Walworth % (Auto) 8.9 Eos % (Auto) 0.4 [...] pleural effusion and mild cardiomegaly. Reading Location: [id number] Rhythm Strip Rhythm Strip: Sinus Rhythm Rate: [...] min), Including time spent:, Discussing w/Patient &/or Family/Sand Caster Apprentice, Discussing w/Consultants, Arranging Admission or Transfer and [...] MD [Primary Care Provider] - Print Language: Brazilian Disposition Disposition: Acute Care Hospital [facility] What to do if you have Problems For any increased pain, shortness of breath, bleeding, nausea or vomiting, chestpain, or any unexpected problems, contact your Primary Care Provider. Call [facility] ([phone]) or report to the closest Emergency Room. Call 911 if necessary. 10/08/24 0112 <Electronically signed by Matheus Fabian MD> Cosigner Signature (if applicable): CC: Dr. Kierra Santiago MD ~ Signed [facility] Work Phone: [phone]) 141-232406-09-2025 History and physical note Author Kelsie Muñoz [facility] Note Date/Time October 08, 2024 12:32 am [facility] Medical Records Department [address] [place] [address] H&P Exam - Hospitalist 10/07/24 2342 MR#: [id number] Acct: [id number] Name: ERI PRITCHARD Rep #:[id number] : 1940 83 From: Kelsie Muñoz MD PCP: Dr. Kierra Santiago MD Status:AD M IN Location: [address] 1 HPI - General General Date [...] with no gross lesions presents to the [facility] ED on 10/07/2024 with history of [...] answered albuterol,Protonix 40 mg IV x 1. [facility] Medical History TIA (transient ischemic attack) Wears [...] (Auto) 71.8 H, Lymph %(Auto) 18.2 L, Walworth % (Auto) 8.9, Eos % (Auto) 0.4, [...] pleural effusion and mild cardiomegaly. Reading Location: [id number] Assessment & Plan Assessment/Plan (1) Acute upper [...] with no gross lesions presents to the [facility] ED on 10/07/2024 with history of [...] 16 minutes. Charges/Coding Visit Charges Inpatient E&M: 73181 Init Hosp L3 Procedures Hospitalists Procedures: 37134 Advncd Care Plan 30 Min 10/08/24 0032 <Electronically signed by Kelsie Muñoz MD> Cosigner Signature (if applicable): CC: Dr. Kelsie Muñoz MD; Dr. Kierra Santiago MD~ Signed [facility] Work Phone: [phone]) 927-739306-09-2025 Evaluation note* Diagnosis Onset Date Resolution Status Admit Date GERD (gastroesophageal reflu x disease) acute October [...] 07, 2024 11:42pm Subendocardial ischemia resolved J [facility] 2024 11:42pm Warfarin-induced coagulopathy resolv ed October 07, 2024 11:42pm (HFpEF) heart failure with preserved ejection fraction inactive October 07, 2024 11:42pm Atrial fibrillation inactive October 07, 2024 11:42pm Factor V Leiden inactive October 07, 2024 11:42pm Hypertension inactive October 07 11:42pm Pleural effusion, left inactive Ju ne 2024 11:42pm Carotid artery disease chronic 2024 1:48pm Anticoagulant long-term use chronic December 13, 2024 9:22am Aortic valve stenosis chronic Nov 9:22am Chronic a-fib chronic November 9:22am Hyperlipidemia chronic November 9:22am Peripheral vascular disease chronic December 13, 2024 9:22am Stenosis of left carotid artery acute January 22, 2025 9:22am [facility] Work Phone: [phone]) [phone] Discharge summary [facility] Medical Records Department [address] [place] [address] Emergency Department Summary 10/07/24 MR#: [id number] Acct: [id number] Name: ERI PRITCHARD Rep #:[id number] : 1940 83 From: Matheus Fabian MD PCP: Dr. Kierra Santiago MD Status:AD M IN Location: [place] [address] HPI History of Present Illness Chief Complaint: [...] darker as well but she takes iron. [facility] Medical History TIA (transient ischemic attack) Wears [...] 71.8 H Lymph % (Auto) 18.2 L Walworth % (Auto) 8.9 Eos % (Auto) 0.4 [...] pleural effusion and mild cardiomegaly. Reading Location: [id number] Rhythm Strip Rhythm Strip: Sinus Rhythm Rate: [...] min), Including time spent:, Discussing w/Patient &/or Family/Sand Caster Apprentice, Discussing w/Consultants, Arranging Admission or Transfer and [...] MD [Primary Care Provider] - Print Language: Brazilian Disposition Disposition: Acute Care Hospital [facility] What to do if you have Problems For any increased pain, shortness of breath, bleeding, nausea or vomiting, chestpain, or any unexpected problems, contact your Primary Care Provider. Call [facility] ([phone]) or report tothe closest Emergency Room. Call 911 if necessary. 10/08/24 0112 Cosigner Signature (if applicable): CC: Dr. Kierra Santiago MD ~ Signed [facility]06-09-2025 History and physical note [facility] Medical Records Department [address] [place] [address] H&P Exam - Hospitalist 10/07/24 2342 MR#: [id number] Acct: [id number] Name: ERI PRITCHARD Rep #:[id number] : 1940 83 From: Kelsie Muñoz MD PCP: Dr. Kierra Santiago MD Status:AD M IN Location: [place] [address] HPI - General General Date of Admission: [...] with no gross lesions presents to the [facility] ED on 10/07/2024 with history of [...] (Auto) 71.8 H, Lymph %(Auto) 18.2 L, Walworth % (Auto) 8.9, Eos % (Auto) 0.4, Baso % (Auto) 0.3, Absolute Neuts (auto) 5.3, Absolute Lymphs (auto) 1.35, Nucleated RBC % 1.5, DifferentialComment SCANNED, Platelet Estimate ADEQUATE, Polychromasia 2+, Anisocytosis 2+, PT 29.4 H, INR 2.7, Qlhizy708, Potassium 3.9, Chloride 102, Carbon Dioxide 16.2L, [...] pleural effusion and mild cardiomegaly. Reading Location: [id number] Assessment & Plan Assessment/Plan (1) Acute upper [...] with no gross lesions presents to the [facility] ED on 10/07/2024 with history of [...] 16 minutes. Charges/Coding Visit Charges Inpatient E&M: 95410 Init Hosp L3 Procedures Hospitalists Procedures: 13569 Advncd Care Plan 30 Min 10/08/24 0032 Cosigner Signature (if applicable): CC: Dr. Kelsie Muñoz MD; Dr. Kierra Santiago MD~ Signed [facility]06-08-2025 Radiology Diagnostic study note [facility] Imaging Services [address] [place] [address] Chest PA and Lateral MR#: [id number] Acct: [id number] Name: ERI PRITCHARD Rep #: [id number] : 1940 F 83 From: Carolyn Montemayor MD PCP: Dr. Kierra Santiago MD Status: RE G ER Study:Chest PA and Lateral Date of Exam: 10/07/24 Exam# [id number] Ordering Dr: Di Fabian MD PROCEDURE: CHEST [...] pleural effusion and mild cardiomegaly. Reading Location: [id number] CC: Dr. Matheus Fabian MD; Dr. Kierra Santiago MD ~ Preschool Aide: Signed [facility]06-02-2025 Radiology Diagnostic study note [facility] Imaging Services [address] [place] [address] CTA Head AND Neck W/ Contrast MR#: [id number] Acct: [id number] Name: ERI PRITCHARD Rep #: [id number] : 1940 F 83 From: Julian Phillips MD PCP: Dr. Kierra Santiago MD Status: RE G CLI Study:CTA Head AND Neck W/ Contrast Date of Glenny xam: 10/01/24 Exam# [id number] Ordering Dr: Dejan Crowell PROCEDURE: CTA HEAD [...] the proximal right internal carotid artery with uakngnkmdoeas79% stenosis. Atherosclerosis of the left proximal internal carotid artery with approximately 75% stenosis. Atherosclerosis of the origins ofthe bilateral vertebral arteries without significant stenosis. Atherosclerosis of the carotid siphons. The ssqemq-nw-Eabmdh is patent. The anterior cerebral, anterior communicating, [...] atherosclerosis without hemodynamically significant stenosis. Reading Location: [id number] CC: COLTON Wetzel; Dr. Kierra Santiago MD ~ Preschool Aide: Signed [facility]05-13-2025 NoteHNO ID: [id number] Author: IWONA DONATO RN Service: ? Author Type: Registered Nurse Type: Progress Notes Filed: 09/11/2024 18:11 Note Text: [facility] History of Present illness Narrative* Iwona Donato RN - 09/11/2024 6:11 PM EDT pcp agrees with information * Iwona Donato RN - 09/11/2024 10:32 AM EDT patient had inr completed at [facility] patients inr is 2.8 (patients inr [...] for follow up INR. documented in this encounterMer[facility]-13-2025 NoteHNO ID: [id number] Author: IWONA DONATO RN Service: ? Author Type: Registered Nurse Type: Progress Notes Filed: 09/11/2024 18:11 Note Text: patient had inr completed at [facility] patients inr is 2.8 (patients inr range [...] in 4 weeks (10/09/24) for follow up INR.[facility]04-23-2025 Evaluation note* Diagnosis Onset Date Resolution Status Admit Date Gastric ulcer resolved August 22, 2024 11:25am GERD (gastroesophageal reflu x disease) acute October 07, 2024 1 1:42pm Iron deficiency anemia acute Ju ne 2024 11:42pm ABLA (acute blood loss anemia) [...] effusion, left inactive Ju ne 2024 11:42pm [facility] Work Phone: [phone] Evaluation note* Diagnosis Onset Date Resolution Status [...] 07, 2024 11:42pm Subendocardial ischemia resolved J 2024 11:42pm Warfarin-induced coagulopathy resolv ed October [...] vascular disease chronic December 13, 2024 9:22am [facility] Work Phone: [phone] [facility]04-22-2025 NoteHNO ID: [id number] Author: IWONA DONATO, RN Service: ? Author Type: Registered Nurse Type: Progress Notes Filed: 08/21/2024 16:09 Note Text: pcp agrees with informationP[facility]04-22-2025 History of Present illness Narrative* Iwona Donato, RN - 08/21/2024 4:09 PM EDT pcp agrees with information * Iwona Donato, XOCHILT - 08/21/2024 12:02 PM EDT patient had inr completed at [facility] patients inr is 1.8 (patients inr range is 2.0-3.0) patient is currently taking 2mg Mon,Wed,Fri and 3mg all other days patients last dose change was on 07/05/24 due to a low level of 1.3 (dose at that time was 3mg ,Th,Tue and 2mg all other days) patient has [...] for follow up INR. documented in this encounterMer[facility]04-22-2025 NoteHNO ID: [id number] Author: IWONA DONATO RN Service: ? Author Type: Registered Nurse Type: Progress Notes Filed: 08/21/2024 16:09 Note Text: patient had inr completed at [facility] patients inr is 1.8 (patients inr range is 2.0-3.0) patient is currently taking 2mg Tue,Wed,Tue and 3mg all other days patients last [...] in 3 weeks (09/11/24) for follow up INR.[facility]04-07-2025 Telephone encounter Note* Telephone Encounter - Akash PaytonKikoMaría - 08/06/2024 11:17 AM EDT Prescription Refill [...] by mouth two times a day. María Payton August 06, 2024 11:[address] [facility]04-07-2025 Miscellaneous Notes* Telephone Encounter - María [...] by mouth two times a day. María Payton August 06, 2024 11:17 AM documented in this encounterMer[facility]. [facility]04-03-2025 NoteHNO ID: [id number] Author: IWONA DONATO RN Service: ? Author Type: Registered Nurse Type: Progress Notes Filed: 08/02/2024 16:40 Note Text: pcp agreesPomerene Hospital04-03-2025 History of Present illness Narrative* Iwona Donato RN - 08/02/2024 4:40 PM EDT pcp agrees * Iwona Donato RN - 07/31/2024 10:00 AM EDT patient had inr completed at [facility] patients inr is 2.9 (patients inr [...] for follow up INR. documented in this encounterMer[facility]04-01-2025 Telephone encounter Note * Telephone Encounter - Anastasiia Colón APRN.CNS - 07/31/2024 12:05 PM EDT ok [facility]04-01-2025 Miscellaneous Notes* Telephone Encounter - Anastasiia [...] can not be approved. documented in this encounterMercy Health St. [facility]04-01-2025 Telephone encounter Note * Telephone Encounter - Iwona Donato RN - 07/31/2024 10:03 AM EDT patients orders for coumadin clinic inr's has at this time. new order has been pended for approval if possible so that patient can continue to get inr's completed thru the coumadin clinic. coumadin clinic nurse only needs called if order can not be approved. [facility]04-01-2025 NoteHNO ID: [id number] Author: IWONA DONATO RN Service: ? Author Type: Registered Nurse Type: Progress Notes Filed: 08/02/2024 16:40 Note Text: patient had inr completed at [facility] patients inr is 2.9 (patients inr [...] in 3 weeks (08/21/24) for follow up INR.[facility]03-18-2025 Telephone encounter Note* Telephone Encounter - Le [...] Le Porras July 17, 2024 3:[address] [facility]03-18-2025 Miscellaneous Notes* Telephone Encounter - Le [...] 17, 2024 3:45 PM documented in this encounterMer[facility]. [facility]03-18-2025 NoteHNO ID: [id number] Author: ANASTASIIA COLÓN APRN.CNS Service: ? Author Type: Nurse Specialist Type: Progress Notes Filed: 07/17/2024 16:36 Note Text: Continue with Coumadin dose unchanged and check INR in 2 weeksPomerene Hospital03-18-2025 History of Present illness Narrative* Anastasiia Colón APRN.CNS - 07/17/2024 2:31 PM EDT Continue with Coumadin dose unchanged and check INR in 2 weeks * Iwona Donato RN - 07/17/2024 12:07 PM EDT patient had inr completed at [facility] patients inr is 2.1 (patients inr [...] reading since dose change documented in this encounterMer[facility]03-18-2025 NoteHNO ID: [id number] Author: IWONA DONATO RN Service: ? Author Type: Registered Nurse Type: Progress Notes Filed: 07/17/2024 16:36 Note Text: patient had inr completed at [facility] patients inr is 2.1 (patients inr [...] is the first normal reading since dose changePomerene Hospital03-18-2025 History of Present illness Narrative* Anastasiia Colón, SHANNAN.STUDENT EDUCATION SPECIALIST - 07/17/2024 10:00 AM EDT SUBJECTIVE: Diabetic Foot Exam due on 08/10/2023 Advance Directive Discussion due on 05/02/2024 HbA1C due on 06/28/2024 MAYNOR Eri Kisha Rinaldijosse is a 83 year old female. PMH [...] her previous visit: She was admitted to [facility] March 19 through [facility] 05[facility] osteomyelitis and wet gangrene [...] rehab for debility. Discharged to home with [facility] home care. Today reports eating and drinking normally. No bowel or bladder complaints. She has [facility] coming out to her home. She has an appointment coming up with her animal care provider Dr. Blanca. She reports no upcoming appointment [...] membrane normal. Nose: Rhinorrhea present. Mouth/Throat: Lips: Lindsey. Mouth: Mucous membranes are moist. Pharynx: Oropharynx [...] at 2.9 on 07/10 per cardiology at [facility] Keep - BASIC METABOLIC PANEL 3. [...] Level: 4 - Moderate documented in this encounterMercy Health St. [facility]03-18-2025 NoteHNO ID: [id number] Author: ANASTASIIA COLÓN APRN.CNS Service: ? Author [...] her previous visit: She was admitted to [facility] March 19 through April 05. She [...] rehab for debility. Discharged to home with [facility] home care. Today reports eating and drinking normally. No bowel or bladder complaints. She has [facility] coming out to her home. She has an appointment coming up with her animal care provider Dr. Blanca. She reports no upcoming appointment [...] She notes leg and foot are healed. . Friend is to repeat EGD. US to [...] membrane normal. Nose: Rhinorrhea present. Mouth/Throat: Lips: Lindsey. Mouth: Mucous membranes are moist. Pharynx: Oropharynx [...] Take 1 caps (more content not included)... [facility]03-12-20[facility] Telephone encounter Note* Telephone Encounter - Daisy Atkins LPN - 07/11/2024 9:24 AM EDT Home care Certification Form 485 received from [facility]. For cert dates 05/03/24-07/01/24 that were signed on 06/20/24. New Certification Patient's home health 485 form / care plan for stated certification period reviewed and signed. Relevant medical records were reviewed. No changes were indicated [facility]03-12-2025 Miscellaneous Notes* Telephone Encounter - Daisy Atkins LPN - 07/11/2024 9:24 AM EDT Home care Certification Form 485 received from [facility]. For cert dates 05/03/24-07/01/24 that were signed on 06/20/24. New Certification Patient's home health 485 form / care plan for stated certification period reviewed and signed. Relevant medical records were reviewed. No changes were indicated documented in this encounterMer[facility]03-06-2025 NoteHNO ID: [id number] Author: IWONA DONATO RN Service: ? Author Type: Registered Nurse Type: Progress Notes Filed: 07/05/2024 16:08 Note Text: PATIENT NOTIFIED OF INFORMATIONPomerene Hospital03-06-2025 History of Present illness Narrative* Iwona Donato RN - 07/05/2024 4:08 PM EST PATIENT NOTIFIED OF INFORMATION * Anastasiia oClón APRN.CNS - 07/05/2024 3:39 PM EST Recommend Coumadin 6 mg today then Coumadin 3 mg Tuesday; 2 mg all other days. Check INR in 2 weeks. * Iwona Donato RN - 07/05/2024 12:09 PM EST patient had inr completed at [facility] patients inr is 1.3 (patients inr [...] on 07/17/24 - patient has appt with MARKET RESEARCH INTERVIEWER also this days please review and advise on recommendation patient only needs called if provider does not agree with recommendation documented in this encounterMer[facility]. [facility]03-06-2025 NoteHNO ID: [id number] Author: ANASTASIIA COLÓN APRN.STUDENT EDUCATION SPECIALIST Service: ? Author Type: Nurse Specialist Type: Progress Notes Filed: 07/05/2024 16:08 Note Text: Recommend Coumadin 6 mg today then Coumadin 3 mg Tuesday; 2 mg all other days. Check INR in 2 weeks.[facility]03-06-2025 Note HNO ID: [id number] Author: IWONA DONATO RN Service: ? Author Type: Registered Nurse Type: Progress Notes Filed: 07/05/2024 16:08 Note Text: patient had inr completed at [facility] patients inr is 1.3 (patients inr [...] on 07/17/24 - patient has appt with MARKET RESEARCH INTERVIEWER also this days please review and advise on recommendation patient only needs called if provider does not agree with recommendation [facility]02-27-2025 Telephone encounter Note* Telephone Encounter - Kierra Santiago MD - 06/28/2024 8:05 PM EST The following approved medication requests have been transmitted electronically. Requested Prescriptions Pending Prescriptions Disp Refills metoprolol succinate ER (TOPROL XL) 50 mg 24 hr tablet 180 tablet 3 Sig: Take 1 tablet by mouth two times a day. Kierra Santiago MD [facility]02-27-2025 Miscellaneous Notes* Telephone Encounter - Kierra Santiago MD - 06/28/2024 8:05 PM EST The following approved medication requests have been transmitted electronically. Requested Prescriptions Pending Prescriptions Disp Refills metoprolol succinate ER (TOPROL XL) 50 mg 24 hr tablet 180 tablet 3 Sig: Take 1 tablet by mouth two times a day. Kierra Santiago MD * Telephone Encounter - Le Porras - 06/28/2024 [...] 28, 2024 8:55 AM documented in this encounterMer[facility]02-27-2025 NoteHNO ID: [id number] Author: IWONA DONATO RN Service: ? Author Type: Registered Nurse Type: Progress Notes Filed: 06/28/2024 16:31 Note Text: PATIENT NOTIFIED OF INFORMATIONPomerene Hospital02-27-2025 History of Present illness Narrative* Iwona Donato RN - 06/28/2024 4:31 PM EST PATIENT NOTIFIED OF INFORMATION * Anastasiia Colón APRN.CNS - 06/28/2024 11:21 AM EST Recommend Coumadin 3 mg Tuesday and and 2 mg all other days and check INR in 1 week. * Iwona Donato RN - 06/28/2024 10:52 AM EST patient had inr completed at [facility] patients inr is 1.3 (patients inr [...] not agree with recommendation documented in this encounterMer[facility]02-27-2025 NoteHNO ID: [id number] Author: ANASTASIIA COLÓN APRN.CNS Service: ? Author Type: Nurse Specialist Type: Progress Notes Filed: 06/28/2024 16:31 Note Text: Recommend Coumadin 3 mg Graciela and and 2 mg all other days and check INR in 1 week.[facility]02-27-2025 NoteHNO ID: [id number] Author: IWONA DONATO RN Service: ? Author Type: Registered Nurse Type: Progress Notes Filed: 06/28/2024 16:31 Note Text: patient had inr completed at [facility] patients inr is 1.3 (patients inr [...] if provider does not agree with recommendation [facility]02-27-2025 Telephone encounter Note* Telephone Encounter - Le [...] Le Porras June 28, 2024 8:[address] [facility]02-13-2025 NoteHNO ID: [id number] Author: SAVANAH HAIDER APRN.CNP Service: ? Author Type: Nurse Practitioner Type: Progress Notes Filed: 06/14/2024 10:45 Note Text: Agree with anticoag's recommendationsPomerene Hospital02-13-2025 History of Present illness Narrative* Savanah Haider APRN.CNP - 06/14/2024 10:45 AM EST Agree with anticoag's recommendations * Iwona Donato RN - 06/14/2024 10:42 AM EST patient had inr completed at [facility] patients inr is 2.7 (patients inr [...] for follow up INR. documented in this encounterMer[facility]02-13-2025 NoteHNO ID: [id number] Author: IWONA DONATO RN Service: ? Author Type: Registered Nurse Type: Progress Notes Filed: 06/14/2024 10:45 Note Text: patient had inr completed at [facility] patients inr is 2.7 (patients inr [...] in 2 weeks (06/28/24) for follow up INR.[facility]02-[facility] Evaluation note* Diagnosis Onset Date Resolution Status [...] Gastric ulcer acute August 22, 2024 11:25am [facility] Work Phone: 1(979) 827-576702-11-2025 Evaluation note* Diagnosis Onset Date Resolution Status [...] 20, 2024 9:53am [facility] Chronic a-fib chronic June 202024 [...] 2024 11:57pm Pleural effusion, left acute Ju 2024 11:57pm Subendocardial ischemia acute J 2024 11:57pm Warfarin-induced coagulopathy acute October 07, 2024 11:57pm [facility] Work Phone: 1(831) 903-312802-11-2025 Evaluation note* Diagnosis Onset Date Resolution Status Admit Date Carotid artery disease acute Fe 2024 8:31am Diarrhea acute June 12, 2024 8:31am Peripheral vascular disease chronic June 12, 2024 8:31am Diarrhea acute June 19, 2024 8:20am Gastric ulcer acute June 192024 8:20am GERD (gastroesophageal reflu x disease) acute June 19 2 025 8:20am Anticoagulant long-term use chronic June 20, 2024 9:53am Aortic valve stenosis chronic [facility] 2024 9:53am Chronic a-fib chronic June 202024 [...] Sep 11:42pm Hypertension chronic October 07 11:42pm [facility] Work Phone: 1(365) 413-248202-11-2025 Evaluation note* Diagnosis Onset Date Resolution Status [...] 2024 11:42pm Gastric ulcer acute October 07 025 11:42pm GI bleed acute October 07, 2024 11:42pm Pleural effusion, left acute Ju ne 2024 11:42pm Subendocardial ischemia acute J une 2024 11:42pm Warfarin-induced coagulopathy acute October 07, 2024 11:42pm Aortic valve stenosis chronic Ta e 2024 11:42pm Hypertension chronic October 07 11:42pm HFrEF (heart failure with reduced ejection fraction) resolved October 07, 2024 11:42pm [facility] Work Phone: 1(351) 817-859802-03-2025 NoteHNO ID: [id number] Author: TERRENCE JANE MD Service: ? Author Type: Physician Type: Progress Notes Filed: 06/04/2024 12:38 Note Text: Terrence Jane MD Interventional Cardiology [address] [place] [address] [phone] Chief Complaint Patient presents with: Follow Up: [...] Resp 12 Ht (more content not included)... [facility]02-03-2025 History of Present illness Narrative* Terrence Jane MD - 06/04/2024 12:07 PM EST Images from the original note were not included. Terrence Jane MD Interventional Cardiology [address] [place] [address] [phone] Chief Complaint Patient presents with: Follow Up: [...] MD Follow up planning: Follow up with [facility] Electronically signed by Terrence Jane MD on June 04, 2024, 12:07 PM The above note was partially created using a dictation recognition software. A reasonable attempt has been made to correct any errors. documented in this encounter[facility]28[facility] Telephone encounter Note * Telephone Encounter - Judy Ramos RN - 05/29/2024 9:52 AM EST Patient scheduled for OV 04/04/25, spoke with patient she was able to see Dr. Rojas and no longer needs the appt with [facility]01-28-2025 Miscellaneous Notes* Telephone Encounter - Judy Ramos RN - 05/29/2024 9:52 AM EST Patient scheduled for OV 04/04/25, spoke with patient she was able to see Dr. Rojas and no longer needs the appt with documented in this encounterMer[facility]01-22-2025 Telephone encounter Note * Telephone Encounter - Concetta Sanchez LPN - 05/23/2024 11:59 AM EST Phoned patient and reviewed message with her and she voiced understanding by repeating back the orders. Concetta Sanchez LPN [facility]01-22-2025 Miscellaneous Notes* Telephone Encounter - Concetta [...] again. Emily Bustos LPN ROUTING TO PROVIDER TUBE ROLLER DR. KOCH. PT'S PROVIDER /TEAM IS OUT. Emily Bustos LPN documented in this encounterMer[facility]01-22-2025 Telephone encounter Note * Telephone Encounter - Pal Koch MD - 05/23/2024 11:47 AM EST INR therapeutic. Continue current coumadin dosage and follow up in [address] [facility] Work Phone: 1(515) 908-878001-22-2025 Telephone encounter Note* Telephone Encounter - Emily [...] next Tuesday when he sees opt again. Emiyl Bustos LPN ROUTING TO PROVIDER TUBE ROLLER DR. KOCH. PT'S PROVIDER /TEAM IS OUT. Emily Bustos LPN [facility]01-20-2025 Telephone encounter Note* Telephone Encounter - Glenda Raymundo RN - 05/21/2024 5:13 PM EST Patient called and notified. Glenda Raymundo RN [facility]01-20-2025 Miscellaneous Notes* Telephone Encounter - Glenda Raymundo RN - 05/21/2024 5:13 PM EST Patient called and notified. Glenda Raymundo RN * Telephone Encounter - Glenda Raymundo RN - 05/21/2024 5:12 PM EST ----- Message from Terrence Jane MD sent at 05/18/2024 5:37 PM EST ----- Normal Echo Please Inform the patient babak documented in this encounterMer[facility]01-20-2025 Telephone encounter Note * Telephone Encounter - Glenda Raymundo RN - 05/21/2024 5:12 PM EST ----- Message from Terrence Jane MD sent at 05/18/2024 5:37 PM EST ----- Normal Echo Please Inform the patient babak [facility]01-16-2025 Telephone encounter Note* Telephone Encounter - Krys Townsend RN - 05/17/2024 1:30 PM EST Called and left a detailed voicemail notifying Qasim from [facility] of providers message. Clinic phone number was left in case he had any questions. Pt called and is notified of providers results and instructions. Pt voices understanding. She states she will come back to the [facility] when she doesn't have HH anymore. Updated Anticoag tracker. Krys Townsend RN [facility]01-16-2025 Miscellaneous Notes* Telephone Encounter - Krys Townsend RN - 05/17/2024 1:30 PM EST Called and left a detailed voicemail notifying Aqsim from [facility] of providers message. Clinic phone number [...] - 05/16/2024 10:23 AM EST Qasim from [facility] calls and states that long term is extending 1 time a week x 2 weeks. Qasim also reports that patient saw Dr. Roly Herrera Flame Gouger and patient was started on losartan/hctz 100-12.5 daily. Last INR: INR (POCT) 1.5 (ext) 05/16/2024 Current dose of coumadin is: 2 mg Daily. Last date of dose change: 04/23/2024 . Previous INR (date and result): 05/09/2024 1.9 Additional Clinical Information or narrative: no No changes in Diet. No signs/symptoms of bleeding or bruising. documented in this encounterMer[facility]01-15-2025 Telephone encounter Note * Telephone Encounter - Kierra Santiago MD - 05/16/2024 7:18 PM EST Noted med adjustment per cardiology. How will patient get INR after HHN no longer following. Noted INR down again. Take 3 mg then increase to 2 mg daily except 3 mg on Sundays. INR next Tuesday [facility]01-15-2025 Telephone encounter Note* Telephone Encounter - Prerna Salgado RN - 05/16/2024 10:23 AM EST Qasim from [facility] calls and states that long term is extending 1 time a week x 2 weeks. Qasim also reports that patient saw Dr. Roly Herrera Flame Gouger and patient was started on losartan/hctz 100-12.5 daily. Last INR: INR (POCT) 1.5 (ext) 05/16/2024 Current dose of coumadin is: 2 mg Daily. Last date of dose change: 04/23/2024 . Previous INR (date and result): 05/09/2024 1.9 Additional Clinical Information or narrative: no No changes in Diet. No signs/symptoms of bleeding or bruising. [facility]01-14-2025 Telephone encounter Note* Telephone Encounter - Kierra Santiago MD - 05/15/2024 4:16 PM EST Noted [facility]01-14-2025 Miscellaneous Notes* Telephone Encounter - Kierra Santiago MD - 05/15/2024 4:16 PM EST Noted * Telephone Encounter - Daisy Atkins LPN - 05/15/2024 3:35 PM EST PATIENT NOTIFIED OF SAME. Patient is planning on getting labs done in the next couple of week at [facility]. FYI:She has a follow up with [...] primary care: 07/17/2024 Please advise. Thank you. hCerelle Aguillon. documented in this encounterMercy Health St. [facility]01-14-2025 Telephone encounter Note * Telephone Encounter - Daisy Atkins LPN - 05/15/2024 3:35 PM EST PATIENT NOTIFIED OF SAME. Patient is planning on getting labs done in the next couple of week at [facility]. 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 [facility]01-14-2025 Telephone encounter Note* Telephone Encounter - Anastasiia Colón APRN.CNS - 05/15/2024 9:19 AM EST noted, agree [facility]01-14-2025 Miscellaneous Notes* Telephone Encounter - Anastasiia [...] calling: self Call patient at: at home [phone] (home) [phone] (cell) Was an appointment scheduled: No Closing statement: Symptom Call: Thank you for calling [facility], your call is very important. A nurse will call in approximately 2-4 hours during business hours. If this is an emergency, please contact 911. Cherelle Aguillon documented in this encounterMercy Health [facility]. [facility]01-13-2025 Telephone encounter Note * Telephone Encounter [...] a day. Authorizing Provider: KIERRA SANTIAGO MD [facility]01-13-2025 Evaluation note* Diagnosis Onset Date Resolution [...] vascular disease chronic June 20, 2024 9:53am [facility] Work Phone: 1(694) 450-490101-13-2025 Telephone encounter Note* Telephone Encounter - Noemi [...] Vascular appointment on 06/05/24. Noemi Cullen RN [facility]01-13-2025 Telephone encounter Note* Telephone Encounter - [...] calling: self Call patient at: at home [phone] (home) [phone] (cell) Was an appointment scheduled: No Closing statement: Symptom Call: Thank you for calling [facility], your call is very important. A nurse will call in approximately 2-4 hours during business hours. If this is an emergency, please contact 911. Cherelle Aguillon [facility]01-13-2025 Telephone encounter Note* Telephone Encounter - [...] 07/17/2024 Please advise. Thank you. Cherelle Aguillon. [facility]01-11-2025 Telephone encounter Note* Telephone Encounter - [...] AM 187/77 11:45 AM 143/74 2. ONSET: 05/10/23 198/85 05/11/24 197/87 This morning 187/77 3. HOW: Home Blood Pressure Monitor 4. [...] 30 days. Protocols used: Blood Pressure - [id number] [facility]01-11-2025 Miscellaneous Notes* Telephone Encounter - Nallely [...] AM 187/77 11:45 AM 143/74 2. ONSET: 05/10/23 198/85 05/11/24 197/87 This morning 187/77 3. HOW: Home Blood Pressure Monitor 4. [...] 30 days. Protocols used: Blood Pressure - [id number] documented in this encounterMercy Health St. [facility]01-08-2025 Telephone encounter Note * Telephone Encounter - Daisy Atkins LPN - 05/09/2024 4:13 PM EST PATIENT NOTIFIED OF SAME. Message left on Qasim's voicemail with the below instructions. [facility]01-08-2025 Miscellaneous Notes* Telephone Encounter - Daisy Atkins LPN - 05/09/2024 4:13 PM EST [...] 05/09/2024 11:05 AM EST Qasim, Nurse with [facility] calling with an update on [...] . Noemi Cullen RN documented in this encounterMercy Health St. [facility]01-08-2025 Telephone encounter Note * Telephone Encounter [...] if they want to adjust meds otherwise. [facility]01-08-2025 Telephone encounter Note* Telephone Encounter - Noemi Cullen RN - 05/09/2024 11:05 AM EST Qasim, Nurse with [facility] calling with an update on [...] any new orders, . Noemi Cullen RN [facility]01-07-2025 NoteHNO ID: [id number] Author: MARY KAY DELGADO, DO Service: ? Author Type: Physician Type: Progress Notes Filed: 05/08/2024 09:29 Note Text: [facility] V[facility] [place] DEPARTMENT OF VASCULAR SURGERY OUTPATIENT VISIT DATE [...] she underwent revascularization with Dr. Rojas at [facility]. At that time she was also [...] by mouth two times a day. Biote Holcombe 3+CoQ10 --30 mg of CoQ10 ALLERGIES: ALLERGIES [...] and follow up aft (more content not included)...[facility]01-07-2025 History of Present illness Narrative* Jeanne Delgadoeen Irma, DO - 05/08/2024 8:49 AM EST Images from the original note were not included. [facility] [place] DEPARTMENT OF VASCULAR SURGERY OUTPATIENT VISIT DATE [...] she underwent revascularization with Dr. Rojas at [facility]. At that time she was also [...] by mouth two times a day. Biote Holcombe 3+CoQ10 --30 mg of CoQ10 ALLERGIES: ALLERGIES [...] imaging She would like to stay in [place] if possible for interventions, she will touch base with Dr. Rojas's office to see about carotid interventions and will notify the office. SIGNATURE: Mary Kay Delgado DO PATIENT NAME: Eri Pritchard DATE: May 08, 2024 TIME: 8:49 AM documented in this encounterMercy Health St. [facility]01-03-2025 Telephone encounter Note * Telephone Encounter - Kierra Santiago MD - 05/04/2024 1:59 AM EST Noted. Kierra Santiago MD [facility]01-03-2025 Miscellaneous Notes* Telephone Encounter - Kierra Santiago MD - 05/04/2024 1:59 AM EST Noted. Kierra Santiago MD * Telephone Encounter - Zoey Tom LPN - 04/30/2024 2:15 PM EST Le with [facility] calls to report she has to discharge pt from because of insurance change. Pt will be re-admitted to 05/02/24 under an different insurance. Zoey Tom LPN documented in this encounterMercy Health St. [facility]01-03-2025 Telephone encounter Note * Telephone Encounter [...] once daily. Authorizing Provider: KIERRA SANTIAGO MD [facility]01-03-2025 Miscellaneous Notes* Telephone Encounter - Kierra [...] does need all of these. Yarelis Garnica [facility] May 03, 2024 4:05 PM documented in this encounterMercy Health St. [facility]01-02-2025 Telephone encounter Note * Telephone Encounter [...] Rios LPN May 03, 2024 4:[address] [facility]01-02-2025 Telephone encounter Note* Telephone Encounter - [...] does need all of these. Yarelis Garnica [facility] May 03, 2024 4:[address] [facility]01-02-2025 Telephone encounter Note* Telephone Encounter - Bekah Vivas LPN - 05/03/2024 3:33 PM EST Qasim [facility] nurse was notified of providers message and verbalized understanding. [facility]01-02-2025 Miscellaneous Notes* Telephone Encounter - Bekah Vivas LPN - 05/03/2024 3:33 PM EST Qasim [facility] nurse was notified of providers message and verbalized understanding. * Telephone Encounter - Anastasiia Colón APRN.CNS - 05/03/2024 3:20 PM EST Monitor BP and let us know if remains elevated above 150 systolic * Telephone Encounter - Lisseth Vaughn RN - 05/03/2024 3:11 PM EST Qasim [facility] nurse calling in as pt changed [...] return call unless orders. documented in this encounterMercy Health St. [facility]01-02-2025 Telephone encounter Note * Telephone Encounter - Anastasiia Colón APRN.CNS - 05/03/2024 3:20 PM EST Monitor BP and let us know if remains elevated above [address] [facility]01-02-2025 Telephone encounter Note* Telephone Encounter - Lisseth Vaughn RN - 05/03/2024 3:11 PM EST Qasim [facility] nurse calling in as pt changed [...] No need to return call unless orders. [facility]01-02-2025 Telephone encounter Note* Telephone Encounter - Krys Townsend RN - 05/03/2024 8:08 AM EST Called and left a detailed voicemail notifying Qasim from [facility] of providers message. Clinic phone number was left in case he had any questions. Krys Townsend RN [facility]01-02-2025 Miscellaneous Notes* Telephone Encounter - Krys Townsend RN - 05/03/2024 8:08 AM EST Called and left a detailed voicemail notifying Qasim from [facility] of providers message. Clinic phone number [...] - 05/01/2024 9:22 AM EST Qasim from [facility] calls with updated INR and BP. [...] bruising is getting smaller documented in this encounterMercy Health St. [facility]12-31-2024 Telephone encounter Note * Telephone Encounter - Kierra Santiago MD - 05/01/2024 5:11 PM EST Continue present dosing Recheck in 1 week Continue to monitor BP on present meds. Make sure patient staying hydrated. May drink 2 cups of water or other noncaffeinated fluid under 5 minute to get SBP up if gets low again under 90. [facility]12-31-2024 Telephone encounter Note* Telephone Encounter - Prerna Salgado RN - 05/01/2024 9:22 AM EST Qasim from [facility] calls with updated INR and BP. [...] Patient reports that bruising is getting smaller [facility]12-31-2024 Telephone encounter Note* Telephone Encounter - Bekah Vivas LPN - 05/01/2024 8:54 AM EST Form faxed back to [facility]12-31-2024 Miscellaneous Notes* Telephone Encounter - Bekah Vivas LPN - 05/01/2024 8:54 AM EST Form faxed back to [facility] * Telephone Encounter - Kierra [...] When form is completed, Fax form to [phone] Form has been forwarded to Physician Desk: Dr. Khadijah Eubanks MA documented in this encounterMercy Health St. [facility]12-30-2024 Telephone encounter Note * Telephone Encounter - Kierra Santiago MD - 04/30/2024 11:56 PM EST Signed [facility]12-30-2024 Telephone encounter Note* Telephone Encounter - Bekah Vivas LPN - 04/30/2024 4:06 PM EST Forms at nurse's pod for signature [facility]12-30-2024 Telephone encounter Note* Telephone Encounter - Zoey Tom LPN - 04/30/2024 2:15 PM EST Le with [facility] calls to report she has to discharge pt from because of insurance change. Pt will be re-admitted to 05/02/24 under an different insurance. Zoey Tom LPN [facility]12-29-2024 Telephone encounter Note* Telephone Encounter - Kierra Santiago MD - 04/29/2024 6:48 PM EST Verify form faxed back [facility]12-27-2024 Telephone encounter Note* Telephone Encounter - Olga Lidia Eubanks MA - 04/27/2024 10:59 AM EST Type of form: Home Health Care Orders Form received via fax When form is completed, Fax form to [phone] Form has been forwarded to Physician Desk: Dr. Khadijah Eubanks MA [facility]12-24-2024 Telephone encounter Note* Telephone Encounter - Noemi [...] has standing INR order. Noemi Cullen RN [facility]12-24-2024 Miscellaneous Notes* Telephone Encounter - Noemi [...] - 04/23/2024 11:26 AM EST Elissa with [facility] called and they saw pt today but did not do an INR. Pt has apt with Cardiology at the [facility] and Elissa will call and have pt go early and get INR done at the [facility] and it will then come to Dr. Santiago to review and advise. Watch for results. Emily Bustos LPN documented in this encounterMercy Health St. [facility]12-23-2024 Telephone encounter Note * Telephone Encounter [...] of the week. INR in [address] [facility]12-23-2024 Telephone encounter Note* Telephone Encounter - Romina Sawant LPN - 04/23/2024 5:47 PM EST Forwarded to Provider to review. Romina Sawant LPN [facility]12-23-2024 NoteHNO ID: [id number] Author: TERRENCE JANE MD Service: ? Author Type: Physician Type: Progress Notes Filed: 04/23/2024 15:01 Note Text: Terrence Jane MD Interventional Cardiology [address] [place] [address] [phone] Chief Complaint Patient presents with: New: was at admitted at [facility]- dx CHF and a-fib HISTORY OF [...] by mouth two times a day. Biote Holcombe 3+CoQ10 --30 mg of CoQ10 oxybutynin ER [...] and urgency. Musculoskeletal: Nega (more content not included)...[facility] 04-23-2024 History of Present illness Narrative* Terrence Jane MD - 04/23/2024 2:56 PM EST Images from the original note were not included. Terrence Jane MD Interventional Cardiology [address] [address] [phone] Chief Complaint Patient presents with: New: was at admitted at [facility]- dx CHF and a-fib HISTORY OF [...] by mouth two times a day. Biote Holcombe 3+CoQ10 --30 mg of CoQ10 oxybutynin ER [...] to correct any errors. documented in this encounterMercy Health St. [facility]12-23-2024 Telephone encounter Note * Telephone Encounter - Emily Bustos LPN - 04/23/2024 11:26 AM EST Elissa with [facility] called and they saw pt today but did not do an INR. Pt has apt with Cardiology at the [facility] and Elissa will call and have pt go early and get INR done at the [facility] and it will then come to Dr. Santiago to review and advise. Watch for results. Emily Bustos LPN [facility]12-20-2024 Telephone encounter Note* Telephone Encounter - Daisy Atkins LPN - 04/20/2024 9:13 AM EST [place] and patient made aware. This encounter has been faxed to [facility]. [facility]12-20-2024 Miscellaneous Notes* Telephone Encounter - Daisy Atkins LPN - 04/20/2024 9:13 AM EST [place] and patient made aware. This encounter has been faxed to [facility]. * Telephone Encounter - Kierra Santiago [...] CM be contacted with further orders at [phone]. documented in this encounterMercy Health St. [facility]12-19-2024 Telephone encounter Note * Telephone Encounter - Kierra Santiago MD - 04/19/2024 6:00 PM EST Noted patient already started taking 2 mg dose yesterday. Okay 2 mg daily dose for now Recheck next Tuesday. [facility]12-18-2024 Telephone encounter Note* Telephone Encounter - [...] CM be contacted with further orders at [phone]. [facility]12-17-2024 Instructions* Patient Instructions* Anastasiia Colón APRN.AMBROSIO - 04/17/2024 12:45 PM EST Home health [...] see him Please make an appointment a [facility] documented in this encounterMercy Health St. [facility]12-17-2024 NoteHNO ID: [id number] Author: ANASTASIIA COLÓN APRN.CNS Service: ? Author [...] for hospital discharge follow-up visit. She has [facility]. She was admitted to [facility] March 19 through April 05. She [...] rehab for debility. Discharged to home with [facility] home care. Today reports eating and drinking normally. No bowel or bladder complaints. She has [place] [facility] coming out to her home. She has an appointment coming up with her animal care provider Dr. Blanca. 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 [facility]12-17-2024 History of Present illness Narrative* Anastasiia Colón APRN.STUDENT EDUCATION SPECIALIST - 04/17/2024 11:46 AM EST SUBJECTIVE: RSV [...] for hospital discharge follow-up visit. She has [facility]. She was admitted to [facility] March 19 through April 05. She [...] rehab for debility. Discharged to home with [facility] home care. Today reports eating and drinking normally. No bowel or bladder complaints. She has [place] [facility] coming out to her home. She has an appointment coming up with her animal care provider Dr. Blanca. She reports no upcoming appointment [...] by mouth two times a day. Biote Holcombe 3+CoQ10 --30 mg of CoQ10 cholecalciferol (VITAMIN [...] Z89.431 Healing well. To follow up with animal care provider. 3. S/P femoral-popliteal bypass surgery - ICD9: [...] Level: 4 - Moderate documented in this encounterMercy Health St. [facility]12-16-2024 Telephone encounter Note * Telephone Encounter - Kierra Santiago MD - 04/16/2024 11:33 PM EST Agreeable with POC [facility]12-16-2024 Miscellaneous Notes* Telephone Encounter - Kierra Santiago MD - 04/16/2024 11:33 PM EST Agreeable with POC * Telephone Encounter - Noemi Cullen RN - 04/16/2024 2:41 PM EST Jaylan with [facility] calling with patient's Physical Therapy plan of care. PT will see patient 1x/week for 3 weeks for functional mobility training. No call back needed if provider agreeable with POC. Thank you. documented in this encounterMercy Health St. Charles [facility] Telephone encounter Note * Telephone Encounter - Noemi Cullen RN - 04/16/2024 2:41 PM EST Jaylan with [facility] calling with patient's Physical Therapy plan of care. PT will see patient 1x/week for 3 weeks for functional mobility training. No call back needed if provider agreeable with POC. Thank you. [facility]12-16-2024 Telephone encounter Note* Telephone Encounter - Cecilio Guadarrama RN - 04/16/2024 10:55 AM EST Call placed to patient and Qasim with [facility]. Spoke to both with verbalized understanding. Cecilio Guadarrama RN [facility]12-16-2024 Miscellaneous Notes* Telephone Encounter - Cecilio Guadarrama RN - 04/16/2024 10:55 AM EST Call placed to patient and Qasim with [facility]. Spoke to both with verbalized understanding. [...] Anastasiia tomorrow 04/17. Call back number is [phone]. Cecilio Guadarrama RN documented in this encounterMer[facility]12[facility]24 Telephone encounter Note * Telephone Encounter - Kierra Santiago MD - 04/16/2024 10:40 AM EST Hold today and tomorrow then get INR Tuesday as noted. Can discuss with Anastasiia tomorrow about prior coumadin dosing [facility]12-16-2024 Telephone encounter Note* Telephone Encounter - [...] Anastasiia tomorrow 04/17. Call back number is [phone]. Cecilio Guadarrama RN [facility]12-13-2024 Telephone encounter Note* Telephone Encounter - Cecilio Guadarrama RN - 04/13/2024 4:29 PM EST Call placed to Elli with [facility] and notified of below message with understanding. Cecilio Guadarrama RN [facility]12-13-2024 Miscellaneous Notes* Telephone Encounter - Cecilio Guadarrama RN - 04/13/2024 4:29 PM EST Call placed to Elli with [facility] and notified of below message with understanding. Cecilio Guadarrama RN * Telephone Encounter - Anastasiia Colón APRN.CNS - 04/13/2024 12:39 PM EST OK [facility] * Telephone Encounter - Cecilio Guadarrama RN - 04/13/2024 9:08 AM EST Elli with [facility] calls to request a delay in start of care for PT. Elli would like to move the visit to next week d/t patient having an appointment today. Elli requests a call back at [phone]. Cecilio Guadarrama RN documented in this encounterMer[facility]12-13-2024 Telephone encounter Note * Telephone Encounter - Anastasiia Colón APRN.CNS - 04/13/2024 12:39 PM EST OK [facility]12-13-2024 Telephone encounter Note* Telephone Encounter - Cecilio Guadarrama RN - 04/13/2024 9:08 AM EST Elli with [facility] calls to request a delay in start of care for PT. Elli would like to move the visit to next week d/t patient having an appointment today. Elli requests a call back at [phone]. Cecilio Guadarrama, RN [facility]12-12-2024 Telephone encounter Note* Telephone Encounter - Bekah Vivas LPN - 04/12/2024 9:37 AM EST Attempted to contact Moisés nurse with [facility] but no answer. Left providers message on secure voicemail and ask to call office and ask to speak. [facility]12-12-2024 Miscellaneous Notes* Telephone Encounter - Bekah Vivas LPN - 04/12/2024 9:37 AM EST Attempted to contact Moisés nurse with [facility] but no answer. Left providers message [...] 04/11/2024 9:26 AM EST Moisés nurse with [facility] calling, asking if PCP saw that [...] with instructions. Please advise. documented in this encounterMer[facility] Health [facility]. [facility]12-12-2024 Telephone encounter Note * Telephone Encounter [...] that Qasim will recheck INR on Tuesday. [facility]12-11-2024 Telephone encounter Note* Telephone Encounter - [...] mg daily and recheck INR next Tuesday [facility]12-11-2024 Telephone encounter Note* Telephone Encounter - Romina Sawant LPN - 04/11/2024 5:58 PM EST Message copied and given to Provider to address. Romina Sawant LPN [facility]12-11-2024 Telephone encounter Note* Telephone Encounter - Stacia Bruce LPN - 04/11/2024 9:26 AM EST Moisés nurse with [facility] calling, asking if PCP saw [...] and the patient with instructions. Please advise. [facility]12-09-2024 Telephone encounter Note* Telephone Encounter - Anastasiia Colón APRN.CNS - 04/09/2024 4:07 PM EST OK [facility]. Should take medications as ordered at discharge. [facility]12-09-2024 Miscellaneous Notes* Telephone Encounter - Anastasiia Colón APRN.AMBROSIO - 04/09/2024 4:07 PM EST [place] [facility]. Should take medications as ordered at discharge. * Telephone Encounter - Lisseth Vaughn RN - 04/09/2024 3:39 PM EST Moisés nurse from [facility] calling as he saw pt today [...] Warfarin and Plavix. Per med list in [facility], pt has two magnesiums listed. Moisés states [...] problem or any changes. documented in this encounterMer[facility]12-09-2024 Telephone encounter Note * Telephone Encounter - Lisseth Vaughn RN - 04/09/2024 3:39 PM EST Moisés nurse from [facility] calling as he saw pt today [...] Warfarin and Plavix. Per med list in [facility], pt has two magnesiums listed. Moisés states [...] back unless a problem or any changes. [facility]12-06-2024 NoteHNO ID: [id number] Author: BEKAH VIVAS LPN Service: ? Author Type: LICENSED NURSE Type: Progress Notes Filed: 04/10/2024 16:44 Note Text: TRANSITION CARE MANAGEMENT (TCM) INITIAL CONTACT Manual Training Teacher Outreach Provider Action/FYI: Spoke with patient and she is currently still in [facility] and states will be discharged on 04/08/24. Initial contact with patient post discharge, spoke to patient. Patient identified by name and . TRANSITION CARE MANAGEMENT INITIAL OUTREACH DOCUMENTATION: No data to display SUMMARY: -Pt discharged from [facility] on . -Admitted for: Right Transmetatarsal [...] home? Yes [facility] of Present illness Narrative* Bekah Vivas LPN - 04/06/2024 10:03 AM EST Images from the original note were not included. TRANSITION CARE MANAGEMENT (TCM) INITIAL CONTACT Manual Training Teacher Outreach Provider Action/FYI: Spoke with patient and she is currently still in [facility] and states will be discharged on 04/08/24. Initial contact with patient post discharge, spoke to patient. Patient identified by name and . TRANSITION CARE MANAGEMENT INITIAL OUTREACH DOCUMENTATION: No data to display SUMMARY: -Pt discharged from [facility] on . -Admitted for: Right Transmetatarsal [...] from recent hospitalization: Yes documented in this encounterMer[facility]12-[facility]-2024 NotePatient Outreach (INTMWS) EVELINEERI NUÑEZ ([id number]) 1940 F Date Time Provider Department 04/06/24 KIERRA SANTIAGO During your visit today, we recorded the following information about you: OrtegaBekahVERNON 04/10/2024 4:44 PM Signed TRANSITION CARE MANAGEMENT (TCM) INITIAL CONTACT Manual Training Teacher Outreach Provider Action/FYI: Spoke with patient and she is currently still in [facility] and states will be discharged on 04/08/24. Initial contact with patient post discharge, spoke to patient. Patient identified by name and . TRANSITION CARE MANAGEMENT INITIAL OUTREACH DOCUMENTATION: No data to display SUMMARY: -Pt discharged from [facility] on . -Admitted for: Right Transmetatarsal [...] Date Reviewed: 02/23/2024 Reviewed by: Anastasiia Colón APRN.STUDENT EDUCATION SPECIALIST - Fully Assessed Prescriptions as of 04/10/2024 [...] iron) tab Take by mouth. - argin/glut/CaHMB/collag/mv-min (RONALDO, WITH COLLAGEN, ORAL) Take by mouth. - [...] by mouth two times a day. Biote Holcombe 3+CoQ10 --30 mg of CoQ10 - cholecalciferol [...] Factor 5 Leiden mutat (more content not included)...[facility] 04-05-2024 [facility]12-05-2024 Telephone encounter Note* Telephone Encounter - Bekah Vivas LPN - 04/05/2024 4:51 PM EST No answer. Left providers message on confidential voice mail [facility]12-05-2024 Miscellaneous Notes* Telephone Encounter - Bekah Vivas LPN - 04/05/2024 4:51 PM EST No answer. Left providers message on confidential voice mail * Telephone Encounter - Anastasiia Colón APRN.CNS - 04/05/2024 4:21 PM EST OK [facility] * Telephone Encounter - Noemi Cullen RN - 04/05/2024 11:48 AM EST Le with [facility] calling and states patient will be discharging from [facility] this Tuesday. Requesting verbal order for patient for Home Health Group Home, PT and OT. Asking if provider will sign and follow for these orders. Call Le with verbal order at [phone]. Thank you. documented in this encounterMer[facility]12-05-2024 Telephone encounter Note * Telephone Encounter - Anastasiia Colón APRN.CNS - 04/05/2024 4:21 PM EST [facility]12-05-2024 Telephone encounter Note* Telephone Encounter - Noemi Cullen RN - 04/05/2024 11:48 AM EST Le with [facility] calling and states patient will be discharging from [facility] this Tuesday. Requesting verbal order for patient for Home Health Group Home, PT and OT. Asking if provider will sign and follow for these orders. Call Le with verbal order at [phone]. Thank you. [facility]12-04-2024 [facility]11-21-2024 [facility]11-18-2024 Evaluation note* Diagnosis Onset Date Resolution Status Admit Date Allergic rhinitis acute 2023 6:10pm Anemia acute March 19, 2024 6:10pm Atrial fibrillation acute 2023 6:10pm Debility acute March 19, 2024 6:10pm Diabetes mellitus acute 2023 6:10pm Essential (primary) hypertension acute November 18th, 2 024 6:10pm GERD (gastroesophageal reflu x disease) acute March 19 2 024 6:10pm HFrEF (heart failure with reduced [...] gangrene of the foot resolved March 19 2 024 6:10pm Hematoma of lower leg [...] (gastroesophageal reflu x disease) acute June 19 2 025 8:20am Anticoagulant long-term use chronic June 20, 2024 9:53am Aortic valve stenosis chronic Feb ruary 2024 9:53am Chronic a-fib chronic June 202024 9:53am Hyperlipidemia chronic June 022024 9:53am Peripheral vascular disease chronic June 20, 2024 9:53am [facility] Work Phone: 1(848) 898-528011-18-2024 [facility]11-18-2024 [facility]11-08-2024 Telephone encounter Note* Telephone Encounter - Kierra Santiago MD - 03/09/2024 11:52 AM EST Noted. Kierra Santiago MD [facility]11-08-2024 Miscellaneous Notes* Telephone Encounter - Kierra Santiago MD - 03/09/2024 11:52 AM EST Noted. Kierra Santiago MD * Telephone Encounter - Kisha Irizarry, XOCHILT - 03/09/2024 9:09 AM EST Phoned Moisés, and given provider's message below with verbalized understanding. Moisés reports pt has only been on the sertraline for 1 week and Moisés has already noticed an improvement - better spirits. Moisés will monitor for now. 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 * [...] - 03/07/2024 3:56 PM EST Moisés with [facility] calling to report that their system shows a [id number]-[id number]-[id number] caution listed for patient's sertraline and warfarin. No call back needed to Moisés, unless provider has further orders or recommendation. Noemi Cullen RN documented in this encounterMer[facility]11-08-2024 Telephone encounter Note * Telephone Encounter - Kisha Irizarry RN - 03/09/2024 9:09 AM EST Phoned Moisés, and given provider's message below with verbalized understanding. Moisés reports pt has only been on the sertraline for 1 week and Moisés has already noticed an improvement - better spirits. Moisés will monitor for now. 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 [facility]11-06-2024 Telephone encounter Note* Telephone Encounter - [...] other SSRI meds (they have slight risk). [facility]11-06-2024 Telephone encounter Note* Telephone Encounter - Noemi Cullen RN - 03/07/2024 3:56 PM EST Moisés with [facility] calling to report that their system shows a [id number] caution listed for patient's sertraline and warfarin. No call back needed to Moisés, unless provider has further orders or recommendation. Noemi Cullen RN [facility]11-02-2024 Telephone encounter Note* Telephone Encounter - Noemi Cullen RN - 03/03/2024 8:32 AM EDT Patient returned call and given provider's message below and patient verbalized understanding. Agreeable to plan. Flaco Cullen RN [facility]11-02-2024 Miscellaneous Notes* Telephone Encounter - Noemi [...] a detailed voicemail notifying Qasim LEMON with [facility] of providers message. Clinic phone number [...] the least side effects. Please send to [facility] in [place], Pt states she will be going there today. Pt declined moving her appointment withAnastasiia Colón up sooner. Krys Townsend RN * Telephone Encounter - [...] 02/29/2024 12:17 PM EDT Qasim RN with [facility] calls to notify provider that patient [...] provider would refill oxycodone prescription ordered from [facility] as she is having quite a bit of pain with the foot. Please review and advise, Cecilio Guadarrama RN documented in this encounterMer[facility]. [facility]11-01-2024 Telephone encounter Note * Telephone Encounter [...] once daily. Authorizing Provider: KIERRA SANTIAGO MD [facility]11-01-2024 Telephone encounter Note* Telephone Encounter - Krys Townsend RN - 03/02/2024 9:52 AM EDT Called and left a detailed voicemail notifying Qasim LEMON with [facility] of providers message. Clinic phone number [...] the least side effects. Please send to [facility] in [place], Pt states she will be going there today. Pt declined moving her appointment withAnastasiia Colón up sooner. Krys Babulski, RN [facility]10-31-2024 Telephone encounter Note* Telephone Encounter - [...] such as fluoxetine or sertraline or paroxetine. [facility]10-31-2024 Telephone encounter Note* Telephone Encounter - [...] for anxiety as well as the oxycodone [facility]10-31-2024 Telephone encounter Note* Telephone Encounter - [...] 7 days. Authorizing Provider: KIERRA SANTIAGO MD [facility]10-31-2024 History of Present illness Narrative* Anastasiia Colón APRN.STUDENT EDUCATION SPECIALIST - 03/01/2024 12:09 PM EDT Recommend stop lovenox injections. Continue with coumadin 4mg daily and recheck in 1 week * Iwona Donato RN - 03/01/2024 11:07 AM EDT patient had inr completed at [facility] patients inr is 3.0 (patients inr range is 2.0-3.0) patient is currently taking lovenox twice daily and 4mg coumadin daily patients last dose change was on 02/21/24 due to [facility] discharge (previous dose was 1mg Tue [...] not agree with recommendation documented in this encounterMer[facility]10-30-2024 Telephone encounter Note * Telephone Encounter - Cecilio Guadarrama RN - 02/29/2024 12:17 PM EDT Qasim RN with [facility] calls to notify provider that patient [...] provider would refill oxycodone prescription ordered from [facility] as she is having quite a bit of pain with the foot. Please review and advise, Cecilio Guadarrama RN [facility]10-28-2024 History of Present illness Narrative* Iwona Donato RN - 02/27/2024 4:44 PM EDT pcp agrees with information * Iwona Donato RN - 02/27/2024 10:20 AM EDT patient had inr completed at [facility] patients inr is 1.4 (patients inr [...] not agree with recommendation documented in this encounterMercy Health [facility]. [facility]10-25-2024 Telephone encounter Note * Telephone Encounter - Bekah Vivas LPN - 02/24/2024 4:23 PM EDT Patient notified of providers message and verbalized understanding. [facility]10-25-2024 Miscellaneous Notes* Telephone Encounter - Bekah Vivas LPN - 02/24/2024 4:23 PM EDT Patient notified of providers message and verbalized understanding. * Telephone Encounter - Bekah Vivas LPN - 02/24/2024 4:21 PM EDT ----- Message from Anastasiia Sevilla APRN.STUDENT EDUCATION SPECIALIST sent at 02/24/2024 4:15 PM EDT ----- Please let her know that lab work yesterday showed that she is dehydrated. Recommend decreasing lasix from twice a day dosing to once daily dosing and recheck metabolic panel in a week or 2. documented in [address] encounterMer[facility]10-25-2024 Telephone encounter Note * Telephone Encounter - Bekah Vivas LPN - 02/24/2024 4:21 PM EDT ----- Message from Anastasiia Sevilla APRN.STUDENT EDUCATION SPECIALIST sent at 02/24/2024 4:15 PM EDT ----- Please let her know that lab work yesterday showed that she is dehydrated. Recommend decreasing lasix from twice a day dosing to once daily dosing and recheck metabolic panel in a week or [address]. [facility]10-24-2024 Telephone encounter Note* Telephone Encounter - Bekah Vivas LPN - 02/23/2024 5:12 PM EDT Client services was not able to add INR to labs already drawn. Spoke with patient and she stated INR was drawn at the lab but they were holding onto it to see if it was going to be done at [facility]in clinic. engineering tech that [facility] was gone and could not confirm if this was done. Patient was given coumadin instructions and verbalized understanding. Coumadin clinice for Tuesday was schedules [facility]10-24-2024 Miscellaneous Notes* Telephone Encounter - Bekah Vivas LPN - 02/23/2024 5:12 PM EDT Client services was not able to add INR to labs already drawn. Spoke with patient and she stated INR was drawn at the lab but they were holding onto it to see if it was going to be done at [facility]. engineering tech that [facility] was gone and could [...] this was not scheduled. documented in this encounterMercy Health St. [facility]10-24-2024 Telephone encounter Note * Telephone Encounter [...] Tuesday next week, this was not scheduled. [facility]10-24-2024 History of Present illness Narrative* Anastasiia Colón, SUPERVISOR [employer]ACILITY.STUDENT EDUCATION SPECIALIST - 02/23/2024 9:00 AM EDT SUBJECTIVE: Pneumococcal [...] discharge follow-up visit. She was admitted to [facility] for right foot cellulitis right lower extremity ischemia. She underwent right femoropopliteal bypass with Dr. Rojas. She was admitted to PCU with debility. Admitted for rehabilitation and strengthening prior to discharge home with . Discharged home with her on February 08, 2024. She has home health care PT OT long term STN wheelchair. She was discharged on both [...] a follow-up appointment with Dr. Blanca her animal care provider. She needs to reschedule appointment with Dr. [...] by mouth two times a day. Biote Holcombe 3+CoQ10 --30 mg of CoQ10 tiZANidine (ZANAFLEX) [...] Abs Lymph 1.00 - 4.00 k/uL 1.87 Walworth% % 10.7 Abs Walworth <0.87 k/uL 0.67 Eosin% % 1.8 Abs [...] Level: 4 - Moderate documented in this encounterMercy Health St. [facility]10-14-2024 Telephone encounter Note * Telephone Encounter - Sheryl Reyes APRN.CNP - 02/13/2024 1:56 PM EDT Noted and agree [facility]10-14-2024 Miscellaneous Notes* Telephone Encounter - Sheryl Reyes APRN.CNP - 02/13/2024 1:56 PM EDT Noted and agree * Telephone Encounter - Kisha Irizarry RN - 02/13/2024 1:36 PM EDT Jaylan- [facility]- reporting PT POC: will see patient 2 x's week for 3 weeks, for functional and mobility training. documented in this encounterMer[facility]. [facility]10-14-2024 Telephone encounter Note * Telephone Encounter - Kisha Irizarry RN - 02/13/2024 1:36 PM EDT Jaylan- [facility]- reporting PT POC: will see patient 2 x's week for 3 weeks, for functional and mobility training. [facility]10-14-2024 Telephone encounter Note* Telephone Encounter - Kierra Santiago MD - 02/13/2024 1:28 PM EDT Noted. Kierra Santiago MD [facility]10-14-2024 Miscellaneous Notes* Telephone Encounter - Kierra Santiago MD - 02/13/2024 1:28 PM EDT Noted. Kierra Santiago MD * Telephone Encounter - Cecilio Guadarrama RN - 02/09/2024 3:59 PM EDT Qasim calls back to let provider know that patient declined OT/ST services and will only be receiving SN/PT. Cecilio Guadarrama RN * Telephone Encounter - Krys Townsend RN - 02/09/2024 3:46 PM EDT Moisés [facility] called in and reports he started [...] on the medication list. documented in this encounterMer[facility]10-10-2024 Telephone encounter Note * Telephone Encounter - Cecilio Guadarrama RN - 02/09/2024 3:59 PM EDT Qasim calls back to let provider know that patient declined OT/ST services and will only be receiving SN/PT. Cecilio Guadarrama RN [facility]10-10-2024 Telephone encounter Note* Telephone Encounter - Krys Townsend RN - 02/09/2024 3:46 PM EDT Moisés [facility] called in and reports he started [...] months. Updated this on the medication list. [facility]10-09-2024 Telephone encounter Note* Telephone Encounter - Daisy Atkins LPN - 02/08/2024 1:11 PM EDT Le aware of same. [facility]10-09-2024 Miscellaneous Notes* Telephone Encounter - Daisy Atkins LPN - 02/08/2024 1:11 PM EDT Le aware of same. * Telephone Encounter - Sheryl Reyes APRN.CNP - 02/08/2024 12:54 PM EDT Yes, we will follow, please return call. Thanks * Telephone Encounter - Prerna Salgado RN - 02/08/2024 11:16 AM EDT eL from [facility] calls and states that patient is being discharged from TCU on 02/08/2024 with the diagnosis of femoral bypass. Le asking if provider willing to follow patient with orders for long term, physical therapy, occupational therapy, and speech therapy. If agreeable please give Le a call back [phone]. Thank you, Prerna Salgado RN documented in this encounterMercy Health [facility]. [facility]10-09-2024 Telephone encounter Note * Telephone Encounter - Sheryl Reyes APRN.CNP - 02/08/2024 12:54 PM EDT Yes, we will follow, please return call. Thanks [facility]10-09-2024 Telephone encounter Note* Telephone Encounter - Prerna Salgado RN - 02/08/2024 11:16 AM EDT Le from [facility] calls and states that patient is being discharged from TCU on 02/08/2024 with the diagnosis of femoral bypass. Le asking if provider willing to follow patient with orders for long term, physical therapy, occupational therapy, and speech therapy. If agreeable please give Le a call back [phone]. Thank you, Prerna Salgado RN [facility]09-14-2024 History of Present illness Narrative* Nancy Albert RN - 01/14/2024 2:48 PM EDT Transitional Care Management (TCM) Follow-Up Note PCP Update / Actionable Items N/A - No specialty updates needed Patient Source: [id number] (OON) Discharge Outreach Summary: Pt reports she had a new issue yesterday - water blisters on her right toes that became infected. Was seen for evaluation 01/13 at [place] [facility] and rx antibiotics for 10 days. Advised pt will continue to follow up with her to see if int med f/u appt reevaluation needed. Pt states Blood glucose this Am was 123 before breakfast. [facility] Discharge date: 01/05/24 Admitted for: [...] 14, 2024 2:55 PM documented in this encounterMercy Health St. [facility]09-13-2024 History of Present illness Narrative* Nataliia Rehman APRN.CNP - 01/13/2024 11:09 AM EDT Patient came [...] this time patient is being referred to themerged with [facility]. Patient was okay with this care plan. Patient's will take her now. documented in this encounterMer[facility]. [facility]09-11-2024 Instructions* Patient Instructions* Kierra Santiago MD - 01/11/2024 5:56 PM EDT documented in this encounterMercy Health St. [facility]09-11-2024 History of Present illness Narrative* Kierra [...] old lady here today for lady for [facility] follow up appointment for review of medical conditions. Patient is an 83-year-old female here for [facility] follow up appointment-- presenting with footpain and [...] 133. She has anupcoming appointment with a amusement ride operator on 01/23. PAST MEDICAL HISTORY No date: [...] by mouth two times a day. Biote Holcombe 3+CoQ10 --30 mg of CoQ10 cholecalciferol (VITAMIN [...] congestive heart failure, unspecified heart failure type ([facility]) (I50.9) - Recent hospitalization from 12/30 to 01/02 for CHF exacerbation; current ejection fraction is 35-40%. - Medications adjusted: Furosemide 40 mg BID, Losartan 50 mg daily, Metoprolol 50 mg daily, Spironolactone 12.5 mg daily. - Discontinued pryi-urz-bdnewet potassium supplementation. - Follow-up with cardiology scheduled for 01/23 to monitor potassium levels and adjust medications as needed. - Advised patient on fluid and salt intake management. # Type 2 diabetes mellitus with diabetic polyneuropathy, without long-term current use of insulin ([facility]) (E11.42) - Blood glucose levels well-controlled; recent reading 133 mg/dL. - Continue current medication regimen. - Patient monitoring blood glucose, weight, and blood pressure daily. # Hypokalemia (E87.6) - Discontinued yxor-qra-lrcmuer potassium supplementation. - Monitoring potassium levels with cardiology follow-up on 01/23. # Leg cramp (R25.2) - Likely secondary to altered gait due to foot pain. - Continue wearing compression socks. - Monitor for improvement as foot pain resolves. # Ulcer of right foot, limited to breakdown of skin ([facility]) (L97.511) - Ulcer on right great toe; [...] swelling. Kierra Santiago MD documented in this encounterMercy Health St. [facility]09-06-2024 History of Present illness Narrative* Kierra [...] Readmission Risk Score: n/a Patient's zip code: [address] Is zip code within program service area: No Patient meets program referral criteria: No Patient does not qualify for High Risk TCM Home Visit program due to: Readmission Risk Score does not meet criteria Disposition: Patient does not qualify for HRTIC, will provide TCM outreach follow-up for 30-days Patient Source: [id number] (OON) Discharge Outreach Summary: as above Patient [facility] Discharge date: 01/05/24 Admitted for: SOB, pneumonia Readmission Risk: n/a Value-Based Contract: Marley GOVEA Contact: Contact made with patient: Yes Hi, my name is Nancy Albert RN and I am calling from the [facility] on behalf of your Primary Care [...] like to speak with a social work sports team manager to help give you support for any [...] I will send your request to a foundry supervisor who will contact and assist you with [...] 06, 2024 10:55 AM documented in this encounterMercy Health St. [facility]09-05-2024 History of Present illness Narrative* Iwona Donato, XOCHILT - 01/05/2024 9:36 AM EDT patient had inr completed at [facility] patients inr is 1.9 (patients inr range is 2.0-3.0) patient is currently taking 1mg Wed and 2mg all other days patients last dose change was on 06/02/23 due to a low level of 1.6 (dose at that time was 1mg Tues,Thurs and 2mg all other days) patient has had no changes in medication and patient missed 2 doses due to was in [facility] and no changein diet Advised patient [...] due to missed does documented in this encounterMercy Health St. [facility]08-31-2024 History of Present illness Narrative* Jean [...] EMS, her will take her now to [place] [facility]. documented in this encounterMercy Health St. [facility]08-30-2024 Telephone encounter Note * Telephone Encounter - Raul Andrade MA - 12/30/2023 10:44 AM EDT Can this be changed to 75 mg tab BID instead of 50 mg 1.5 tabs BID? [facility]08-30-2024 Miscellaneous Notes* Telephone Encounter - Raul [...] by mouth two times a day. María Payton December 30, 2023 9:08 AM documented in this encounterMercy Health St. [facility]08-30-2024 Telephone encounter Note * Telephone Encounter [...] by mouth two times a day. María Bustos [facility] December 30, 2023 9:[address] [facility]08-27-2024 Telephone encounter Note* Telephone Encounter - Romina Sawant LPN - 12/27/2023 10:00 AM EDT Patient aware. Romina Sawant LPN [facility]08-27-2024 Miscellaneous Notes* Telephone Encounter - Romina [...] completed. Romina Sawant LPN documented in this encounterMercy Health St. [facility]08-27-2024 Telephone encounter Note * Telephone Encounter - Kierra Santiago MD - 12/27/2023 9:58 AM EDT Filed [facility]08-27-2024 Telephone encounter Note* Telephone Encounter - Romina Sawant LPN - 12/27/2023 9:45 AM EDT Patient at , fasting to have labwork drawn for OV on 01/11/24. No orders in EPIC at this time. Will have Provider review and file orders if needed. Call ext [phone] to update Briggitte-PSS when completed. Romina Sawant LPN [facility]08-12-2024 Telephone encounter Note* Telephone Encounter - Jean iPerre Davis PA - 12/12/2023 10:28 AM EDT Called patient and let her know that chest x-ray does reveal pneumonia. She also has a lung nodule which was seen on prior CT. Patient states that her primary doctor is following the nodule. Prescribe doxycycline and Augmentin due to comorbidities. Patient will take these as prescribed. Advised if any worsening symptoms go to ER [facility]08-12-2024 Miscellaneous Notes* Telephone Encounter - Jean [...] symptoms go to ER documented in this encounterMercy Health St. Charles [facility]08-12-2024 History of Present illness Narrative* Praful Ledesma RT(Ana Maria) - 12/12/2023 10:00 AM EDT Radiology Service [...] PATIENT PRESENTS WITH AN IMPLANTABLE OR ATTACHED CLINICAL EXERCISE PHYSIOLOGIST: No RADIOLOGY DEPARTMENT: General X-ray: Exam(s) Completed: Chest X-Ray PERIPHERAL IV DATA: Not applicable SIGNED BY: RT Velvet(R) December 12, 2023 10:09 AM documented in this encounterMercy Health St. [facility]08-12-2024 Telephone encounter Note * Telephone Encounter - Judy Puri MA - 12/12/2023 7:24 AM EDT Patient given results and verbalized understanding of instructions given. Judy Puri MA [facility]08-12-2024 Miscellaneous Notes* Telephone Encounter - Judy Puri MA - 12/12/2023 7:24 AM EDT Patient given results and verbalized understanding of instructions given. Judy Puri MA * Telephone Encounter - Jean Pierre Davis PA - 12/12/2023 7:05 AM EDT Negative for COVID flu RSV documented in this encounterMercy Health St. Charles [facility]08-12-2024 Telephone encounter Note * Telephone Encounter - Jean Pierre Davis PA - 12/12/2023 7:05 AM EDT Negative for COVID flu RSV [facility] Work Phone: 1(620) 598-633308-11-2024 History of Present illness Narrative* Jean Pierre Davis PA - 12/11/2023 10:09 AM EDT This note was created using Yummlyriter. Subjective Eri Pritchard is a 83 year [...] ER evaluation. COLTON Abel documented in this encounterMercy Health St. Charles [facility]08-08-2024 History of Present illness Narrative* Iwona Donato RN - 12/08/2023 3:37 PM EDT pcp agrees with information * Iwona Donato RN - 12/08/2023 11:48 AM EDT patient had inr completed at [facility] patients inr is 2.0 (patients inr [...] for follow up INR. documented in this encounterMercy Health St. Charles [facility]07-31-2024 History of Present illness Narrative* Cyn [...] PATIENT PRESENTS WITH AN IMPLANTABLE OR ATTACHED CLINICAL EXERCISE PHYSIOLOGIST: No RADIOLOGY DEPARTMENT: Ultrasound PERIPHERAL IV DATA: Not applicable SIGNED BY: Cyn Romo RDMS November 30, 2023 8:18 AM documented in this encounterMercy Health St. [facility]07-19-2024 Instructions* Patient Instructions* Rula Benavides APRN.PURCHASING ADMINISTRATOR - 11/18/2023 11:36 AM EDT [facility] [place] [id number] [facility] [id number] MEDITERRANEAN DIET The Mediterranean diet blends the basics of healthy eating with the traditional flavors and cookingmethods of the Mediterranean. Interest in the Mediterranean diet began in the 1960's with the observation that coronary heart disease caused fewer deaths in the Mediterranean countries, such as [place] and [place], than in the [place] and northern [place]. [...] based on the traditional cuisines of [place], [place], and other countries that border the Mediterranean Sea. Plant based foods, such as whole grains, vegetables, legumes, fruits, nuts, seeds, herbs and spices, are the foundation of the diet. Monroe oil is the main source of added fat. Fish, seafood, dairy and poultry are included in moderation. Red meat and sweets are eaten only occasionally. Healthy fast instead of unhealthy ones Monroe oil is the primary source of added fat in the Mediterranean diet. Monroe oil provides mono unsaturated fat, which lowers total cholesterol and low- density lipoprotein ( or bad) cholesterol levels. Nuts and seeds also contain mono unsaturated fat. Fatty fish, such as mackerel, hammonds, sardines, albacore tuna and salmon, are rich in omega-3 fatty acids, a type of polyunsaturated fat that may reduce inflammation in the body. Holcombe-3 fatty acidsalso help decrease triglycerides, reduce blood [...] to whole grain bread, cereal, and pasta. Bee with other whole grains, such as crow [...] small. Enjoy some dairy. Eat low fat Nepali or plain yogurt and small amounts of [...] per week might help. Your doctor or refrigerating machine operator can give youadvice on healthy weight loss [...] are diabetic or insulin-resistant. documented in this encounterMercy Health St. Charles [facility]07-19-2024 History of Present illness Narrative* Rula Benavides APRN.CNP - 11/18/2023 10:58 AM EDT CHIEF COMPLAINT: Patient presents with: Gas: Had 2 episodes of chest tightness This consult was requested by Anastasiia Colón APRN.CNS for an opinion regarding abnormal liver enzymes. My final recommendations will be communicated to the requesting health care provider by way of the shared medical record for internal providers or letter via the [employer] for external providers. HPI: Eri Pritchard [...] up in office TBD based on testing Rula Benavides APRN.CNP November 18, 2023 11:57 AM documented in this encounterMercy Health St. [facility]07-16-2024 Progress note* Result Encounter Note - Anastasiia Colón APRN.CNS - 11/15/2023 8:50 AM EDT Normal stress test results [facility]07-16-2024 Miscellaneous Notes* Result Encounter Note - Anastasiia Colón APRN.CNS - 11/15/2023 8:50 AM EDT Normal stress test results documented in this encounterMercy Health St. Charles [facility]07-15-2024 Instructions* Patient Instructions* Anastasiia Colón APRN.CNS - 11/14/2023 10:09 AM EDT Stop taking metformin Start taking glimepiride. Check your blood sugar daily. If your blood sugars remaining above 200 after 2 to 4 weeks let us know so we can increase the doseof glimepiride. documented in this encounterMercy Health St. Charles Hospital07-15-2024 History of Present illness Narrative* Anastasiia [...] department [facility] [...] were negative. No evidence of ACS or MN. She was referred to follow-up with GI [...] Abs Lymph 1.00 - 4.00 k/uL 1.87 Walworth% % 10.7 Abs Walworth <0.87 k/uL 0.67 Eosin% % 1.8 Abs [...] 6 mo follow up MD Anastasiia Wilson APRN.STUDENT EDUCATION SPECIALIST Medical Decision Making: Problems: Moderate: 1+ chronic illnesses with change Risk: Moderate: Drug management Medical Decision Making Level: 4 - Moderate documented in this encounterMercy Health St. [facility]07-11-2024 History of Present illness Narrative* Iwona Donato RN - 11/10/2023 3:48 PM EDT pcp agrees with information * Iwona Donato RN - 11/10/2023 9:17 AM EDT patient had inr completed at [facility] patients inr is 2.2 (patients inr [...] for follow up INR. documented in this encounterMercy Health St. Charles [facility]07-08-2024 Miscellaneous Notes* Telephone Encounter - Elle Ramirez MA - 11/07/2023 11:08 AM EDT Patient notified, has INR on and will repeat lab at this time. Checking BS at home and will bring monitor to appointment. * Telephone Encounter - Elle Ramirez MA - 11/07/2023 11:05 AM EDT ----- Message from Anastasiia Colón APRN.STUDENT EDUCATION SPECIALIST sent at 11/06/2023 8:44 AM EDT ----- Glucose much improved but remains uncontrolled. Sodium approaching normal level. Improved BUN/Cr. Has OV scheduled next week, repeat labs before visit if able to do so. Check to see if taking medications as ordered, home glucose levels documented in this encounterMercy Health St. [facility]07-08-2024 Telephone encounter Note * Telephone Encounter - Elle Ramirez MA - 11/07/2023 11:08 AM EDT Patient notified, has INR on and will repeat lab at this time. Checking BS at home and will bring monitor to appointment. [facility]07-08-2024 Telephone encounter Note* Telephone Encounter - Elle Ramirez MA - 11/07/2023 11:05 AM EDT ----- Message from Anastasiia Colón APRN.STUDENT EDUCATION SPECIALIST sent at 11/06/2023 8:44 AM EDT ----- Glucose much improved but remains uncontrolled. Sodium approaching normal level. Improved BUN/Cr. Has OV scheduled next week, repeat labs before visit if able to do so. Check to see if taking medications as ordered, home glucose levels [facility]07-05-2024 Telephone encounter Note* Telephone Encounter - [...] needed (muscle spasms). Or muscle spasms María Payton November 04, 2023 8:[address] [facility]07-05-2024 Miscellaneous Notes* Telephone Encounter - María [...] needed (muscle spasms). Or muscle spasms María Payton November 04, 2023 8:09 AM documented in this encounterMercy Health St. [facility]06-24-2024 History of Present illness Narrative* Teena [...] PATIENT PRESENTS WITH AN IMPLANTABLE OR ATTACHED CLINICAL EXERCISE PHYSIOLOGIST: No RADIOLOGY DEPARTMENT: CT; Exam(s) Completed: Chest PERIPHERAL IV DATA: Not applicable SIGNED BY: RT Cas(R) October 24, 2023 3:53 PM documented in this encounterMercy Health St. [facility]06-20-2024 Telephone encounter Note * Telephone Encounter - Anastasiia Colón APRN.CNS - 10/20/2023 4:42 PM EDT Note the improvement. [facility]06-20-2024 Miscellaneous Notes* Telephone Encounter - Anastasiia [...] pt. Emily Bustos LPN documented in this encounterMercy Health St. Charles [facility]06-20-2024 Telephone encounter Note * Telephone Encounter - Bekah Vivas LPN - 10/20/2023 4:33 PM EDT Patient states she is taking her medication as directed. Blood sugars have been below 250. Yesterday it was 224, today it was 236. None below 200 but she said she is trying. [facility]06-20-2024 Telephone encounter Note* Telephone Encounter - Anastasiia Colón APRN.STUDENT EDUCATION SPECIALIST - 10/20/2023 4:17 PM EDT Please check with her to see if she is still taking her diabetes medicines as ordered and what her blood sugar is doing [facility]06-13-2024 History of Present illness Narrative* Pal Koch MD - 10/13/2023 9:32 AM EDT INR therapeutic. Continue current coumadin dosage and follow up in 4 weeks. * Iwona Donato RN - 10/13/2023 9:24 AM EDT patient had inr completed at [facility] patients inr is 2.4 (patients inr [...] for follow up INR. documented in this encounterMercy Health St. [facility]06-13-2024 Telephone encounter Note * Telephone Encounter - Iwona Donato RN - 10/13/2023 9:27 AM EDT patient was in today to have her inr checked and reported that BS was now down to 297 this morning non-fasting with the changes [facility]06-12-2024 History of Present illness Narrative* Suresh Varela RN - 10/12/2023 1:49 PM EDT DIABETES CARE AND EDUCATION VISIT Location: [place] Type of visit: In person individual PATIENT'S [...] 2023 TIME: 1:49 PM documented in this encounterMercy Health St. [facility]06-11-2024 Telephone encounter Note * Telephone Encounter - Bekah Vivas LPN - 10/11/2023 4:33 PM EDT Patient notified of providers message and verbalized understanding. Patient states she just took her BS and it is 350 and she is starting to feel better. [facility]06-11-2024 Telephone encounter Note* Telephone Encounter - Anastasiia Colón APRN.AMBROSIO - 10/11/2023 4:27 PM EDT Verify that she took two metformin this morning. If not recommend taking now. If she did take 2 metformin this morning she can take 2 metformin with dinner as well. Endorse ER visit for any severe concerning symptoms. [facility]06-11-2024 Telephone encounter Note* Telephone Encounter - [...] vomiting. Please advise pt. Emily Bustos LPN [facility]06-11-2024 Telephone encounter Note* Telephone Encounter - Krys Townsend RN - 10/11/2023 9:42 AM EDT Pt called and is notified of providers results and instructions. Pt voices understanding. Put DM booklets in Medical Records for Pt to orange picker today. Sent Pts chart to scheduling to call back and schedule with DM education. Krys Townsend RN [facility]06-11-2024 Miscellaneous Notes* Telephone Encounter - Krys Townsend RN - 10/11/2023 9:42 AM EDT Pt called and is notified of providers results and instructions. Pt voices understanding. Put DM booklets in Medical Records for Pt to orange picker today. Sent Pts chart to scheduling to call back and schedule with DM education. Krys Townsend RN * Telephone Encounter - Anastasiia Colón APRN.STUDENT EDUCATION SPECIALIST - 10/11/2023 9:15 AM EDT Recommend she [...] with patient in detail. documented in this encounterMercy Health St. [facility]06-11-2024 Telephone encounter Note * Telephone Encounter [...] go. Can mail DM booklets as well. [facility]06-11-2024 Telephone encounter Note* Telephone Encounter - [...] so has stopped that. Zoey Tom LPN [facility]06-11-2024 Telephone encounter Note* Telephone Encounter - [...] ER evaluation reviewed with patient in detail. [facility] Work Phone: 1(689) 433-187606-10-2024 Instructions* Patient Instructions* Anastasiia Colón APRN.STUDENT EDUCATION SPECIALIST - 10/10/2023 12:31 PM EDT Stay on [...] department. Recommend recheck today. Consider follow-up with cause analyst. I recommend a stress echocardiogram to further check regarding chest pain. I recommend a cardiology visit as well. documented in this encounterMercy Health St. [facility]06-10-2024 History of Present illness Narrative* Anastasiia [...] department follow-[facility] visit. [facility] [...] were negative. No evidence of ACS or MN. She was referred to follow-up with GI [...] left upper lobe on chest x-ray at [facility], CT chest for further evaluation and characterization - [facility] CHEST [facility] 3. Transaminitis - ICD9: 790.4, ICD10: [...] department. Recommend recheck today. Consider follow-up with cause analyst. I recommend a stress echocardiogram to further check regarding chest pain. I recommend a cardiology visit as well. 4-6 week follow up with me 3 - 6 mo follow up MD Anastasiia Wilson APRN.STUDENT EDUCATION SPECIALIST Medical Decision Making: Problems: Moderate: Acute illness with systemic symptoms Data: Unique test(s) ordered: 1 Risk: Moderate: Drug management Medical Decision Making Level: 4 - Moderate documented in this encounterMercy [facility]06-06-2024 Telephone encounter Note * Telephone Encounter - Kierra Santiago MD - 10/06/2023 9:00 AM EDT The following approved medication requests have been transmitted electronically. Requested Prescriptions Pending Prescriptions Disp Refills metFORMIN (GLUCOPHAGE) 500 mg tablet 180 tablet 1 Sig: Take 1 tablet by mouth two times a day with meals. As directed Kierra Santiago MD [facility]06-06-2024 Miscellaneous Notes* Telephone Encounter - Kierra [...] care: 10/10/2023 Please advise. Thank you. María Payton. documented in this encounterMercy Health St. [facility]06-05-2024 Telephone encounter Note * Telephone Encounter [...] care: 10/10/2023 Please advise. Thank you. María Payton. [facility]06-04-2024 History of Present illness Narrative* Mary Kay Delgado DO - 10/04/2023 10:03 AM EDT Images from the original note were not included. Heart , Vascular [facility] Thoracic [place] DEPARTMENT OF VASCULAR SURGERY OUTPATIENT VISIT DATE October 04, 2023 OUTPATIENT VISIT TYPE ESTABLISHED SERVICE DATE: 10/04/2023 SERVICE TIME: 10:03 AM PRIMARY CARE PHYSICIAN: Kierra Santigao MD HISTORY OF PRESENT ILLNESS: Ms. Pritchard [...] Patent and antegrade flow noted. IMPRESSION: Ms. Pritchrad is a 82 year old female with carotid stenosis . PLAN and RECOMMENDATIONS: Follow up in 6 months Continue current medications. Continue blood pressure and cholesterol control SIGNATURE: Mary Kay Delgado DO PATIENT NAME: Eri Pricthard DATE: October 04, 2023 TIME: 10:03 AM documented in this encounterMercy Health St. [facility]05-24-2024 History of Present illness Narrative* Nataliia [...] want to take themselves. documented in this encounterMercy Health St. [facility]05-16-2024 History of Present illness Narrative* Anastasiia Colón APRN.CNS - 09/15/2023 11:56 AM EDT Continue with Coumadin dose unchanged and check INR in 4 weeks * Iwona Donato RN - 09/15/2023 9:26 AM EDT patient had inr completed at [facility] patients inr is 2.9 (patients inr [...] for follow up INR. documented in this encounterMercy Health St. [facility]04-18-2024 History of Present illness Narrative* Greg Tyler MD - 08/18/2023 11:03 AM EDT agree * Iwona Donato RN - 08/18/2023 9:34 AM EDT patient had inr completed at [facility] patients inr is 2.1 (patients inr [...] for follow up INR. documented in this encounterMercy Health St. [facility]03-21-2024 Miscellaneous Notes* Telephone Encounter - Anastasiia [...] can not be approved. documented in this encounterMercy Health St. [facility]03-21-2024 History of Present illness Narrative* Anastasiia Colón APRN.CNS - 07/21/2023 2:02 PM EDT Continue with Coumadin dose unchanged and check INR in 4 weeks * Iwona Donato RN - 07/21/2023 11:52 AM EDT patient had inr completed at [facility] patients inr is 2.8 (patients inr [...] for follow up INR. documented in this encounterMercy [facility] St. [facility]03-19-2024 Miscellaneous Notes* Telephone Encounter - Emily [...] Insurance and pharmacy verified. documented in this encounterMercy Health St. [facility]02-29-2024 History of Present illness Narrative* Anastasiia Colón APRN.CNS - 06/30/2023 12:41 PM EST Continue with Coumadin dose unchanged and check INR in 3 weeks. * Iwona Donato RN - 06/30/2023 9:48 AM EST patient had inr completed at [facility] patients inr is 3.0 (patients inr [...] for follow up INR. documented in this encounterMercy Health St. [facility]02-15-2024 History of Present illness Narrative* Anastasiia Colón APRN.CNS - 06/16/2023 3:52 PM EST Continue Coumadin dose unchanged and recheck INR in 2 weeks. * Iwona Donato RN - 06/16/2023 12:10 PM EST patient had inr completed at [facility] patients inr is 2.2 (patients inr [...] reading since dose change documented in this encounterMercy Health St. [facility]02-06-2024 History of Present illness Narrative* Anastasiia [...] Kierra Santiago MD. Notes recent move to [facility] for family member. Previous PCP: Roel Maza DO, DO [address] [facility] [address] Last seen: January 2022 Labwork:January 2022 ER/Hospitalization: [...] hyperglycemia, without long-term current use of insulin ([facility]) - ICD9: 250.00, 790.29, ICD10: E11.65 (primary diagnosis) 5. Type 2 diabetes mellitus with diabetic polyneuropathy, without long-term current use of insulin ([facility]) - ICD9: 250.60, 357.2, ICD10: E11.42 Controlled, continue with current treatment unchanged for now. Endorse adherence to diet, exercise as able. No change in medications at this time. 2. Peripheral vascular disease, unspecified (HCC) - ICD9: 443.9, ICD10: I73.9 Completed ultrasound [...] Level: 4 - Moderate documented in this encounterMercy Health St. [facility]02-01-2024 History of Present illness Narrative* Bekah Vivas LPN - 06/02/2023 4:37 PM EST Patient notified of providers message and verbalized understanding. * Anastasiia Colón APRN.CNS - 06/02/2023 4:14 PM EST Coumadin 1 mg on Tuesday and 2 mg all other days and check INR in 2 weeks. * Iwona Donato RN - 06/02/2023 9:39 AM EST patient had inr completed at [facility] patients inr is 1.6 (patients inr range is 2.0-3.0) patient is currently taking 1mg es,Thurs and 2mg all other days patients last dose change was on 03/03/23 due to a high level of 3.1 (dose at that time was 1mg Thurs and 2mg all other days) patient has had no changes in medication and no missed doses and no change in diet recommend: patient change coumadin dose to 1mg Tue and 2mg all other days and recheck in 2 weeks patient has been scheduled for a 2 week follow up inr on 2/15/24 please review and advise on recommendation documented in this encounterMercy Health St. [facility]01-01-2024 Miscellaneous Notes* Telephone Encounter - Alice Mcneill RN - 05/02/2023 7:56 AM EST Reason: Severe sinus pain, congestion Outcome: 4 hour recommendation. Care advice given. Patient will got to [facility] for evaluation. Reason for Disposition [...] weak, fatigue Protocols used: Sinus Pain or [id number] documented in this encounterMercy Health St. [facility]11-29-2023 History of Present illness Narrative* Iwona Donato RN - 03/30/2023 3:02 PM EST pcp agrees with information * Iwona Donato RN - 03/30/2023 9:20 AM EST patient had inr completed at [facility] patients inr is 2.0 (patients inr [...] for follow up INR. documented in this encounterMercy Health St. Charles [facility]11-14-2023 History of Present illness Narrative* Lelo Sood, SUPERVISOR LABORATORY [employer]IMAL FACILITY.PURCHASING ADMINISTRATOR - 03/15/2023 10:22 AM EST Images from the original note were not included. Heart , Vascular and Thoracic [place] DEPARTMENT OF VASCULAR SURGERY OUTPATIENT VISIT DATE [...] BP Cuff Size: Regular Adult) Pulse 74 EcH280% General: Alert and oriented x3 Integumentary: Normal [...] 2023 TIME: 10:22 AM documented in this encounterMercy Health St. [facility]10-26-2023 History of Present illness Narrative* Iwona Donato RN - 02/24/2023 4:16 PM EDT PATIENT NOTIFIED OF INFORMATION * Anastasiia Colón APRN.CNS - 02/24/2023 12:12 PM EDT Coumadin 1mg , 2mg all other days and recheck INR in 1 week * Iwona Donato RN - 02/24/2023 10:19 AM EDT patient had inr completed at [facility] patients inr is 3.1 (patients inr [...] and advise on recommendation documented in this encounterMercy Health St. Charles [facility]10-17-2023 Miscellaneous Notes* Telephone Encounter - Romina [...] from [facility] in [place] states she has diabetic shoes ready to [...] to pt. Krys can be reached at [phone]. Concetta Snyder LPN documented in this encounterMercy Health St. Charles [facility]10-06-2023 History of Present illness Narrative* Kierra Santiago MD - 02/04/2023 5:18 PM EDT This note was created using NoteWriter. 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 Worse now than used to be. Had not tried biotin. Taking Vitamin C Noted had skin lesions that PCP had cryotherapy on face (has lateral right eyebrow) Previously treated--tiny rough spot. Seeing Dr. Johnson about her neck (vascular). Had prior right carotid endarterectomy. Has appointmentNovember. Seeing animal care provider--Dr. Blanca. Noted getting new orthotics on Tuesday. [...] Substance Use Topics Alcohol use: Yes Comment: [facility] Drug use: Never Review of Systems Objective [...] Abs Lymph 1.00 - 4.00 k/uL 1.80 Walworth% % 10.2 Abs Walworth <0.87 k/uL 0.64 Eosin% % 2.1 Abs [...] COMP METABOLIC PANEL 5. 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 Encounter for long-term current use of medication Z79.899 LIPID PANEL BASIC HGB A1C CBC COMP METABOLIC PANEL 7. Mixed hyperlipidemia E78.2 LIPID PANEL BASIC 8. Chronic cough R05.3 9. Need for influenza vaccination Z23 INFLUENZA VACCINE, PRSV FREE, AGE 65+ YR, HIGH DOSE, QUADRIVALENT (FLUZONE HIGH-DOSE) 10. Encounter for immunization Z23 [place] COVID-19 VACCINE ( [place]) AGE 12+ YR 82 year old [...] the date of the service which included [id number] patient care, completing clinical documentation, performing a medically appropriate examination, counseling and educating the patient/family/caregiver, ordering medications, tests, or procedures, independently interpreting results (not separately reported), and communicating results to the patient/family/caregiver. Kierra Santiago MD documented in this encounterMercy Health St. Charles [facility]09-28-2023 History of Present illness Narrative* Anastasiia Colón APRN.STUDENT EDUCATION SPECIALIST - 01/27/2023 4:29 PM EDT Continue with Coumadin dose unchanged and check INR in 4 weeks * Iwoan Donato RN - 01/27/2023 9:38 AM EDT patient had inr completed at [facility] patients inr is 2.3 (patients inr range [...] follow u p INR. documented in this encounterMercy Health St. Charles [facility]09-21-2023 History of Present illness Narrative* Anastasiia Colón APRN.CNS - 01/20/2023 4:41 PM EDT hold coumadin today, go back to eating the usual [place] and continue on the 2mg coumadin and recheck inr in 1 week * Iwona Donato RN - 01/20/2023 10:24 AM EDT patient had inr completed at [facility] patients inr is 3.5 (patients inr range [...] and advise on recommendation documented in this encounterMercy Health St. Charles [facility]09-06-2023 Miscellaneous Notes* Telephone Encounter - Zahra [...] and advise. Zahra Negrete documented in this encounterMercy Health St. Charles Hospital08-23-2023 History of Present illness Narrative* Sheryl Reyes APRN.PURCHASING ADMINISTRATOR - 12/22/2022 10:33 AM EDT SUBJECTIVE Eri [...] 3 months. Noticing feeling overwhelmed. Moved from [place]. She notes a cough. On going since [...] Hyperglycemia, Without Long-Term Current Use of Insulin ([facility]) - 07/01/2022 Factor V Deficiency ([facility]) - 07/01/2022 Social History Tobacco Use Smoking [...] medication.. Sheryl Reyes APRN-DAMASO documented in this encounterMercy Health St. Charles [facility]08-22-2023 Miscellaneous Notes* Telephone Encounter - Kierra [...] Irizarry RN - 12/21/2022 11:07 AM EDT [facility] pharmacist reports they received a metformin ER [...] SANTIAGO MD * Telephone Encounter - Daisy Atkins LPN - 12/20/2022 4:22 PM EDT [...] RX will be sent to her local [facility] pharmacy. No need to notify patient. Cherelle Aguillon documented in this encounterMercy Health St. Charles Hospital08-22-2023 Miscellaneous Notes* Telephone Encounter - Anastasiia [...] today and advise. TY documented in this encounterMercy Health St. Charles Hospital08-17-2023 History of Present illness Narrative* Anastasiia Colón APRN.CNS - 12/16/2022 11:25 AM EDT Continue with Coumadin dose unchanged and check INR in 1 month * Iwona Donato RN - 12/16/2022 10:15 AM EDT patient had inr completed at [facility] patients inr is 2.9 (patients inr [...] for follow up INR. documented in this encounterMercy Health St. Charles Hospital08-03-2023 History of Present illness Narrative* Sally Centeno - 12/02/2022 7:51 AM EDT Eri Pritchard is identified through a medication adherence outreach initiative based on pharmacy claims data from [employer] (insurer) for Non-insulin DM medication(s). Patient is [...] the metformin. Sally Sue documented in this encounterMercy Health St. Charles Hospital08-02-2023 History of Present illness Narrative* Pal Johnson MD - 12/01/2022 6:35 PM EDT Images from the original note were not included. Heart , Vascular and Thoracic [place] DEPARTMENT OF VASCULAR SURGERY OUTPATIENT VISIT DATE [...] BP Cuff Size: Regular Adult) Pulse 75 PwF594% General: Alert and oriented, No acute distress, [...] reviewed for today's visit: Non-Invasive Vascular Laboratory [facility] Carotid Duplex Bilateral/Complete Date of service/time: 08/10/2022 [...] cm/s. EDV: 9 cm/s. IMPRESSION Anastasiia Colón APRN notified with results. 08/10/2022 11:55 am RIGHT [...] antegrade flow noted. Technologist: Madeleine Gayle RVT, [facility] Ordering physician: ANASTASIIA COLÓN Interpreting [...] duplex. SIGNATURE: Pal Johnson MD PATIENT NAME: Eri Pritchard DATE: December 01, 2022 TIME: 6:35 PM documented in this encounterMercy Health St. Charles Hospital07-24-2023 History of Present illness Narrative* Teena Workman, RT(R) - 11/22/2022 1:20 PM EDT Radiology Service Progress Note PATIENT NAME: Eri CABRERAN: [id number] DATE OF SERVICE: November 22, 2022 TIME: [...] 22, 2022 4:11 PM documented in this encounterMercy Health St. Charles Hospital07-20-2023 History of Present illness Narrative* Anastasiia Colón APRN.CNS - 11/18/2022 3:48 PM EDT Continue with Coumadin dose unchanged and check INR in 4 weeks * Iwona Donato RN - 11/18/2022 9:29 AM EDT patient had inr completed at [facility] patients inr is 3.0 (patients inr [...] for follow up INR. documented in this encounterMercy Health St. Charles Hospital06-29-2023 History of Present illness Narrative* Anastasiia Colón APRN.CNS - 10/28/2022 3:41 PM EDT Continue with Coumadin dose unchanged and check INR in 3 weeks * Iwona Donato RN - 10/28/2022 9:42 AM EDT patient had inr completed at [facility] patients inr is 2.5 (patients inr [...] for follow up INR. documented in this encounterMercy Health St. Charles Hospital06-13-2023 History of Present illness Narrative* Mary Kay Delgado DO - 10/12/2022 11:38 AM EDT This office note has been dictated. Mary Kay Delgado DO documented in this encounterMercy Health St. Charles Hospital06-13-2023 History of Present illness Narrative* Teena [...] 2022 TIME: 1:28 PM documented in this encounterMercy Health St. Charles Hospital06-01-2023 History of Present illness Narrative* Anastasiia Colón APRN.CNS - 09/30/2022 1:27 PM EDT Continue with current Coumadin dosing and check INR in 4 weeks * Iwona Donato RN - 09/30/2022 9:35 AM EDT patient had inr completed at [facility] patients inr is 2.2 (patients inr [...] for follow up INR. documented in this encounterMercy Health St. Charles Hospital05-02-2023 Miscellaneous Notes* Telephone Encounter - Bekah [...] Abs Lymph 1.00 - 4.00 k/uL 1.80 Walworth% % 10.2 Abs [place] <0.87 k/uL 0.64 Eosin% % 2.1 Abs [...] - 4.200 mIU/L 2.450 documented in this encounterMercy Health St. Charles Hospital04-28-2023 Miscellaneous Notes* Telephone Encounter - Bekah [...] take it. Please review and advise. Luz PSS documented in this encounterMercy Health St. Charles Hospital04-19-2023 History of Present illness Narrative* Praful [...] 18, 2022 9:24 AM documented in this encounterMercy Health St. Charles Hospital04-19-2023 Miscellaneous Notes* Result Encounter Note - Anastasiia Colón APRN.AMBROSIO - 08/18/2022 9:30 AM EDT BMD shows osteopenia documented in this encounterDylan [place]ille [id number] Miscellaneous Notes* Telephone Encounter - Julianne Pedraza [...] and antegrade flow noted. documented in this [facility]04-03-2023 Miscellaneous Notes* Telephone Encounter - Bekah Lu LPN - 08/02/2022 4:59 PM EDT Patient notified of coumadin instructions and verbalized understanding. * Telephone Encounter - Anastasiia Colón APRN.CNS - 08/02/2022 4:02 PM EDT Please let her know INR is 2.3. Continue on with Coumadin dose unchanged, 2 mg daily. documented in this [facility]04-03-2023 Miscellaneous Notes* Addendum Note - Anastasiia Colón APRN.CNS - 08/02/2022 12:46 PM EDTAddended by: ANASTASIIA COLÓN on: 08/02/2022 12:46 PM Modules accepted: Orders documented in this [facility]04-03-2023 Instructions* Patient Instructions* Anastasiia Colón APRN.CNS - 08/02/2022 9:49 AM EDT Schedule appointment with Coumadin clinic. Schedule an eye exam. Consider getting vaccines at your local pharmacy or here at clinic Tdap shingles pneumonia and COVID-19 vaccines appear to be due for you unless you completed these [id number]-[id number]. documented in this encounterMercy Health St. Charles Hospital04-03-2023 History of Present illness Narrative* Anastasiia ColónSHANNAN.STUDENT EDUCATION SPECIALIST - 08/02/2022 9:40 AM EDT SUBJECTIVE: COVID-19 [...] Kierra Santiago MD. Notes recent move to [facility] for family member. Previous PCP: Roel Maza DO, DO [address] [facility] [phone] Last seen: January 2022 Labwork:January 2022 ER/Hospitalization: [...] Abs Lymph 1.00 - 4.00 k/uL 1.80 Walworth% % 10.2 Abs [place] <0.87 k/uL 0.64 Eosin% % 2.1 Abs [...] due for you unless you completed these [id number]. Anastasiia Colón APRN.CNS Medical Decision Making: Problems: Moderate: 2+ stable chronic illnesses Data: Unique test(s) ordered: 2 Risk: Low: Low risk from testing/treatment Medical Decision Making Level: 3 - Low documented in this encounterMercy Health St. [facility]03-03-2023 Miscellaneous Notes* Telephone Encounter - Noemi Culeln RN - 07/02/2022 9:16 AM EST Pt contacted and given provider's message below. Pt verbalized understanding and wrote instructionsdown. Noemi Cullen RN * Telephone Encounter - Anastasiia Colón APRN.CNS - 07/02/2022 7:34 AM EST Please let [...] Abs Lymph 1.00 - 4.00 k/uL 1.80 Walworth% % 10.2 Abs [place]worth <0.87 k/uL 0.64 Eosin% % 2.1 Abs [...] - 4.200 mIU/L 2.450 documented in [address] encounterMercy Health St. Charles Hospital03-02-2023 History of Present illness Narrative* Anastasiia [...] Kierra Santiago MD. Notes recent move to [facility] for family member. Previous PCP: Roel A Shaunna, DO, DO [address] [facility] [address] Last seen: January 2022 Labwork:January 2022 ER/Hospitalization: [...] 1 tablet by mouth daily at bedtime. cranberry-B.ncduydja-L-Ww phos 480 mg-20 mg- 100million cell tab [...] Abs Lymph 1.00 - 4.00 k/uL 1.80 Walworth% % 10.2 Abs [place] <0.87 k/uL 0.64 Eosin% % 2.1 Abs [...] LAB 1 mo follow up Anastasiia Colón APRN.STUDENT EDUCATION SPECIALIST 6 mo follow up MD Anastasiia Wilson APRN.CNS Medical Decision Making: Problems: Moderate: 2+ stable chronic illnesses Data: Unique test(s) ordered: 3+ Risk: Moderate: Drug management Medical Decision Making Level: 4 - Moderate documented in this encounterPremier Health [facility] note Author Sonny Duran [facility] Note Date/Time January 23, 2025 1:27pm [facility] Medical Records Department [address] [place] [id number] Counseling Note - Pharmacy 01/23/25 1327 MR#: [id number] Acct: [id number] Name: ERI PRITCHARD Rep #:[id number] : 1940 84 From: Sonny iglesias PCP: Dr. Kierra Santiago MD Status:AD M IN Y Location: ICU CVICU20 1-1 Pharmacy IN Med Reconciliation Pharmacy Service has performed discharge medication reconciliation for this patient. The patient's discharge medication list was reviewed for discrepancies and discrepancies were resolved. Medications at Discharge Home Medications oxybutynin chloride 10 mg tablet,extended release 24 hr 10 mg PO DAILY bladder 09/23/23 glimepiride 2 mg tablet 2 mg PO DAILY dm 12/31/23 ferrous sulfate 325 mg (65 mg iron) tablet (FeroSul) 325 mg PO DAILY@1200 supplement 30 days #30 tabs 02/03/24 furosemide 40 mg tablet 40 mg PO DAILY water pill 30 days #60 tabs 03/19/24 clopidogrel 75 mg tablet 75 mg PO DAILY a fib 30 days #30 tabs 04/05/24 pantoprazole 40 mg tablet,delayed release 40 mg PO BID reflux 30 days #60 tabs 04/05/24 simvastatin 80 mg tablet 80 mg PO QHS cholesterol 06/20/24 magnesium chloride 64 mg (magnesium chloride) tablet,delayed release (Mag 64) 128 mg PO DAILY leg cramps 08/17/24 potassium chloride 20 mEq tablet,extended release 20 meq PO BID supplement 08/20/24 amlodipine 10 mg tablet 10 mg PO .COMPLEX bp #90 tabs 09/04/24 acetaminophen 500 mg capsule 500 mg PO QHS PRN pain 10/07/24 fluticasone propionate 50 mcg/actuation nasal spray,suspension 2 spray intranasal Q12H PRN congestion 10/07/24 gabapentin 100 mg capsule 100 mg PO TID pain 10/07/24 metoprolol succinate 25 mg tablet,extended release 24 hr 25 mg PO BID bp #60 tabs 10/10/24 tizanidine 4 mg tablet 2 mg PO Q8 PRN muscle spasticity 12/13/24 warfarin 2 mg tablet 2 mg PO .COMPLEX afib 12/13/24 Held on 01/23/25. Instructions: Resume on 01/24/25. cinnamon bark 500 mg capsule (Cinnamon) 500 mg PO DAILY supplement 01/07/25 coenzyme Q10 100 mg capsule (Co Q-10) 100 mg PO DAILY supplement 01/07/25 cranberry 500 mg capsule 500 mg PO DAILY supplement 01/07/25 diphenhydramine HCl 25 mg capsule (Aler-Cap) 25 mg PO .qd allergies 01/07/25 lactobacillus combination no.4 3 billion cell capsule (Probiotic) 3,000 mmu cells PO DAILY supplement 01/07/25 losartan 100 mg-hydrochlorothiazide 12.5 mg tablet 1 tab PO .qd bp 01/07/25 aspirin 81 mg tablet,delayed release 81 mg PO DAILY #30 tabs 01/23/25 01/23/25 1327 <Electronically signed by Sonny Villareal> Date _ Sonny Mack Signature (if applicable): Date CC: ~ Signed [facility] Work Phone: Discharge summary Author Shaan Rojas [facility] Note Date/Time January 23, 2025 12:37pm [facility] Medical Records Department [address] [place] [address] Discharge Summary 01/23/25 1231 MR#: [id number] Acct: [id number] Name: ERI PRITCHARD Rep #:[id number] : 1940 84 From: Shaan Rojas MD PCP: Dr. Kierra Santiago MD Status:AD M IN Location: ICU CVICU20 1-1 Providers Date of Admission: 01/22/25 Primary Care Physician: Dr. Kierra Santiago MD Reason For Visit: Carotidstent, Lead Network Architect, OR Staff, Shawn ESQUIVEL. LEFT Diagnosis Discharge Diagnosis (1) Stenosis of left carotid artery: Status: Acute Code(s): I65.22 - Occlusion and stenosis of left carotid artery Plan: -POD # 1 left TCAR -hemodynamically stable -STEPHANIE with minimal output, removed -cont progressive ambulation, diet -anticipate DC later today Medications at Discharge Home Medications oxybutynin chloride 10 mg tablet,extended release 24 hr 10 mg PO DAILY bladder 09/23/23 glimepiride 2 mg tablet 2 mg PO DAILY dm 12/31/23 ferrous sulfate 325 mg (65 mg iron) tablet (FeroSul) 325 mg PO DAILY@1200 supplement 30 days #30 tabs 02/03/24 furosemide 40 mg tablet 40 mg PO DAILY water pill 30 days #60 tabs 03/19/24 clopidogrel 75 mg tablet 75 mg PO DAILY a fib 30 days #30 tabs 04/05/24 pantoprazole 40 mg tablet,delayed release 40 mg PO BID reflux 30 days #60 tabs 04/05/24 simvastatin 80 mg tablet 80 mg PO QHS cholesterol 06/20/24 magnesium chloride 64 mg (magnesium chloride) tablet,delayed release (Mag 64) 128 mg PO DAILY leg cramps 08/17/24 potassium chloride 20 mEq tablet,extended release 20 meq PO BID supplement 08/20/24 amlodipine 10 mg tablet 10 mg PO .COMPLEX bp #90 tabs 09/04/24 acetaminophen 500 mg capsule 500 mg PO QHS PRN pain 10/07/24 fluticasone propionate 50 mcg/actuation nasal spray,suspension 2 spray intranasal Q12H PRN congestion 10/07/24 gabapentin 100 mg capsule 100 mg PO TID pain 10/07/24 metoprolol succinate 25 mg tablet,extended release 24 hr 25 mg PO BID bp #60 tabs 10/10/24 tizanidine 4 mg tablet 2 mg PO Q8 PRN muscle spasticity 12/13/24 warfarin 2 mg tablet 2 mg PO .COMPLEX afib 12/13/24 Held on 01/23/25. Instructions: Resume on 01/24/25. cinnamon bark 500 mg capsule (Cinnamon) 500 mg PO DAILY supplement 01/07/25 coenzyme Q10 100 mg capsule (Co Q-10) 100 mg PO DAILY supplement 01/07/25 cranberry 500 mg capsule 500 mg PO DAILY supplement 01/07/25 diphenhydramine HCl 25 mg capsule (Aler-Cap) 25 mg PO .qd allergies 01/07/25 lactobacillus combination no.4 3 billion cell capsule (Probiotic) 3,000 mmu cells PO DAILY supplement 01/07/25 losartan 100 mg-hydrochlorothiazide 12.5 mg tablet 1 tab PO .qd bp 01/07/25 aspirin 81 mg tablet,delayed release 81 mg PO DAILY #30 tabs 01/23/25 Hospital Course Operations - (left carotid stent, trans-carotid) Summary of Care Provided Hospital Course: Mrs. Lynne is an 84 yo female with severe bilateral carotid stenosis, asymptomatic. She had anatomy amenable to carotid stent and presented 01/22 for elective surgery. She tolerated the surgery well and was admitted to the ICU forhemodynamic and neurologic monitoring. Overnight she was hemodynamically stable and neurologically intact. She was progressed on diet to normal which she tolerated without N/V. On POD # 1 she continued to do well, voiding and ambulating without difficulty. Her STEPHANIE had minimal output and was removed. She conitnued to do well throughout the day and was discharged to home on 01/23. Weight / BMI Weight Weight: 156 lb 4.924 oz Body Mass Index (BMI) 27.6 ABG / Lab / Microbiology Data 01/23/25 06:35 01/16/25 10:02 Laboratory: Laboratory Results - last 24 hr 01/22/25 05:58: POC PT 15.9 H, INR 1.4 01/22/25 07:32: Activated Clotting Time 279 H 01/22/25 08:09: Activated Clotting Time 256 H 01/22/25 16:33: POC Glucose 228 H 01/22/25 21:46: POC Glucose 214 H 01/23/25 06:35: WBC 8.5, RBC 2.83 L, Hgb 9.1 L, Hct 27.4 L, MCV 96.8, MCH 32.2 H, MCHC 33.2, RDW Std Deviation 53.7 H, RDW Coeff of Kate 15.3 H, Plt Count 159, MPV 11.1, Immature Gran % (Auto) 0.500, Neut % (Auto) 81.6 H, Lymph % (Auto) 10.3 L, Wal[place] % (Auto) 7.5, Eos % (Auto) 0.0, Baso % (Auto) 0.1, Absolute Neuts (auto) 6.9, Absolute Lymphs (auto) 0.88, Nucleated RBC % 0 01/23/25 08:05: POC Glucose 169 H 01/23/25 11:09: POC Glucose 176 H D/C Instructions May shower in (days): 1 Lifting Restrictions: do not lift > 20 lbs for 3 weeks Additional Activity Instructions: do not submerge the incision for 3 weeks Call your doctor if your incision/area has: Sudden Increased Bleeding, IncreasedPain/ Swelling, Increased Redness and Foul Smelling Discharge Remove Dressing in: 1 day (after shower ) Cleanse incision/area with: Soap & Water DC O2, CPAP, BIPAP Needs Home O2 Discharge instructions: No Meaningful Use Info Meaningful Use Meaningful Use Diagnoses (Choose all that apply): None applicable Discharge Plan Admission Admit Date/Time: 01/22/25 09:22 Attending Provider: Shaan Rojas Primary Care Provider: Kierra Santiago Discharge Orders/Prescriptions Prescriptions: New aspirin 81 mg tablet,delayed release (DR/EC) 81 mg PO DAILY Qty: 30 0RF Continued simvastatin 80 mg tablet 80 mg PO QHS tizanidine 4 mg tablet 2 mg PO Q8 PRN (Reason: muscle spasticity) ferrous sulfate [FeroSul] 325 mg (65 mg iron) Tablet 325 mg PO DAILY@1200 30 Days Qty: 30 0RF Patient Comments: pt states she takes at bedtime clopidogrel 75 mg Tablet 75 mg PO DAILY 30 Days Qty: 30 0RF pantoprazole 40 mg Tablet,Delayed Release (Dr/Ec) 40 mg PO BID 30 Days Qty: 60 0RF fluticasone propionate 50 mcg/actuation spray,suspension 2 spray INTRANASAL Q12H PRN (Reason: congestion) acetaminophen 500 mg capsule 500 mg PO QHS PRN (Reason: pain) gabapentin 100 mg capsule 100 mg PO TID metoprolol succinate 25 mg Tablet Extended Release 24 Hr 25 mg PO BID Qty: 60 0RF oxybutynin chloride 10 mg tablet extended release 24hr 10 mg PO DAILY glimepiride 2 mg tablet 2 mg PO DAILY furosemide 40 mg Tablet 40 mg PO DAILY 30 Days Qty: 60 2RF magnesium chloride [Mag 64] 64 mg tablet,delayed release (DR/EC) 128 mg PO DAILY losartan-hydrochlorothiazide 100-12.5 mg tablet 1 tab PO .qd Probiotic 3 billion cell capsule 3,000 mmu cells PO DAILY Rx Instructions: administer with a meal cranberry 500 mg capsule 500 mg PO DAILY Rx Instructions: administer with a meal coenzyme Q10 [Co Q-10] 100 mg capsule 100 mg PO DAILY cinnamon bark [Cinnamon] 500 mg capsule 500 mg PO DAILY diphenhydramine HCl [Aler-Cap] 25 mg capsule 25 mg PO .qd potassium chloride 20 mEq tablet extended release 20 meq PO BID amlodipine 10 mg tablet 10 mg PO .COMPLEX Qty: 90 3RF Rx Instructions: 10 mg orally DAILY: this is a dose increase, pt was using up her 5mg tablets to = 10 mg. Pt is out of med and is in store now. PLEASE FILL, thank you!!; Held warfarin 2 mg tablet 2 mg PO .COMPLEX Hold Instructions: Resume on 01/24/25. Rx Instructions: Take 2 mg Tuesday and and Tuesday, 1 mg all other days; Managed by [facility] Discontinued aspirin 325 mg capsule 325 mg PO DAILY Other Ambulatory Orders: Prothrombin Time w/INR (Routine) Timeframe: 20250122 Facility: [facility] - Location: Laboratory Ordered By: Dr. Michele Herring Referrals / Follow Up: Kierra Santiago MD [Primary Care Provider, Internal Medicine] Disposition Disposition (needs filled in before D/C Order can be placed): Home, Self Care 01/23/25 1222 <Electronically signed by Shaan Rojas MD> Cosigner Signature (if applicable): CC: Dr. Shaan Rojas MD; Dr. Kierra Santiago MD~ Signed [facility] Work Phone: Evaluation note* Diagnosis Routine medical exam- Primary Routine [...] Other [facility]proced[facility] status [facility] Diagnosis Type 2 diabetes mellitus with hyperglycemia, without long-term current use of insulin (HCC)- Primary Encounter for immunization Need for other specified prophylactic vaccination against single bacterial disease Screening for diabetic retinopathy Screening for other eye conditions Screening for osteoporosis Special screening for osteoporosis Asymptomatic menopause [facility] Diagnosis Stenosis of carotid artery, unspecified [...] long-term current use of insulin (HCC)- Primary High triglycerides Pure hyperglyceridemia [facility] Diagnosis 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 [facility] Diagnosis Stenosis of carotid artery, unspecified laterality History of carotid endarterectomy Other postprocedural status History of transient ischemic attack (TIA) Transient ischemic attack (TIA), and cerebral infarction without residual deficits Stenosis of left carotid artery Occlusion and stenosis of carotid artery without mention of cerebral infarction [facility] Diagnosis 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 Diagnosis 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 [facility] Diagnosis Stress and adjustment reaction- Primary Other specified adjustment reaction Sleep disturbance Sleep disturbance, unspecified Type 2 diabetes mellitus with diabetic polyneuropathy, without long-term current use of insulin (HCC) [facility] Diagnosis 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 [facility] Diagnosis Type 2 diabetes [...] single bacterial disease [facility] Diagnosis 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 [facility] Diagnosis Lung nodules Other nonspecific abnormal finding of lung field [facility] Diagnosis Occlusion and stenosis of unspecified carotid artery [facility] Diagnosis Screening for osteoporosis Special screening for osteoporosis Asymptomatic menopause [facility] Diagnosis Bilateral carotid artery stenosis- Primary Occlusion and stenosis of carotid artery without mention of cerebral infarction Primary hypertension Unspecified essential hypertension Elevated HDL Other symptoms involving cardiovascular system Factor 5 Leiden mutation, heterozygous (HCC) Primary hypercoagulable state [facility] Diagnosis 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 [facility] Diagnosis Type 2 diabetes [...] specified acquired hypothyroidism [facility] 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 [facility] Diagnosis 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 [facility] Diagnosis Left arm numbness- Primary Disturbance of skin sensation [facility] Diagnosis Uncontrolled type 2 diabetes mellitus with hyperglycemia ([facility])- Primary Hyponatremia Hyposmolality and/or hyponatremia [facility] Diagnosis Uncontrolled type 2 diabetes mellitus with hyperglycemia ([facility]) [facility] Diagnosis 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 [facility] Diagnosis Lung nodules Other nonspecific abnormal finding of lung field [facility] Diagnosis Bilateral carotid artery stenosis- Primary Occlusion and stenosis of carotid artery without mention of cerebral infarction [facility] Diagnosis Type 2 diabetes mellitus with diabetic polyneuropathy, without long-term current use of insulin (HCC)- Primary [facility] Diagnosis Chest pain, unspecified type- Primary [...] Primary hypercoagulable state [facility] Diagnosis Elevated alanine aminotransferase (ALT) level- Primary Nonspecific elevation of levels of transaminase or lactic acid dehydrogenase (LDH) [facility] Diagnosis Chest pain, unspecified type [facility] Diagnosis Elevated alanine aminotransferase (ALT) level Nonspecific elevation of levels of transaminase or lactic acid dehydrogenase (LDH) [facility] Diagnosis 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 [facility] Diagnosis Acute cough- Primary URI, acute Acute upper respiratory infections of unspecified site [facility] Diagnosis Bacterial pneumonia- Primary Bacterial pneumonia, unspecified [facility] Diagnosis Type 2 diabetes mellitus with hyperglycemia, without long-term current use of insulin (HCC)- Primary [facility] Diagnosis Hypoxia- Primary Hypoxemia [facility] Diagnosis Acute cough [facility] Diagnosis Pain- Primary Generalized pain 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, without long-term current use of insulin ([facility]) Factor 5 Leiden mutation, heterozygous (HCC) Primary hypercoagulable state [facility] Diagnosis Acute on chronic congestive heart failure, unspecified heart failure type (HCC)- Primary Type 2 diabetes mellitus with diabetic polyneuropathy, without long-term current use of insulin (HCC) Hypokalemia Hypopotassemia Leg cramp Cramp of limb Ulcer of right foot, limited to breakdown of skin ([facility]) Callus of foot Corns and callosities Dependent rubor Unspecified erythematous condition [facility] Diagnosis Critical limb ischemia of right lower extremity (HCC)- Primary Pain of foot, unspecified laterality [facility] Diagnosis Chest pain, unspecified type- Primary Lung nodules Other nonspecific abnormal finding of lung field Transaminitis Nonspecific elevation of levels of transaminase or lactic acid dehydrogenase (LDH) Atrial fibrillation, unspecified type (HCC) Type 2 diabetes mellitus with hyperglycemia, without long-term current use of insulin ([facility]) Factor 5 Leiden mutation, heterozygous (HCC) Primary hypercoagulable state Mid back pain on left side Pain in thoracic spine [facility] Diagnosis Critical limb ischemia of right lower extremity (HCC)- Primary S/P transmetatarsal amputation of foot, right (HCC) S/P femoral-popliteal bypass surgery Other postprocedural status Acute gastric ulcer, unspecified whether gastric ulcer hemorrhage or perforation present Duodenal ulcer Duodenal ulcer, unspecified as acute or chronic, without hemorrhage, perforation, or obstruction [facility] Diagnosis 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 [facility] Diagnosis Aortic valve disorder- Primary Aortic valve disorders Pure hypercholesterolemia Primary hypertension Unspecified essential hypertension Heart murmur Undiagnosed cardiac murmurs [facility] Diagnosis Occlusion and stenosis of unspecified carotid artery- Primary [facility] Diagnosis 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 [facility] Diagnosis 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 Diagnosis Type 2 diabetes mellitus with diabetic polyneuropathy, without long-term current use of insulin (HCC)- Primary 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 Author Kelsie Muñoz [facility] Note Date/Time October 08, 2024 12:32 am [facility] Medical Records Department [address] [place] [address] H&P Exam - Hospitalist 10/07/24 2342 MR#: [id number] Acct: [id number] Name: ERI PRITCHARD Rep #:[id number] : 1940 83 From: Kelsie Muñoz MD PCP: Dr. Kierra Santiago MD Status:AD M IN Location: [facility] [id number] HPI - General General Date of [...] with no gross lesions presents to the [facility] ED on 10/07/2024 with history of [...] (Auto) 71.8 H, Lymph %(Auto) 18.2 L, [place] % (Auto) 8.9, Eos % (Auto) 0.4, [...] pleural effusion and mild cardiomegaly. Reading Location: [id number] Assessment & Plan Assessment/Plan (1) Acute upper [...] with no gross lesions presents to the [facility] ED on 10/07/2024 with history of [...] 16 minutes. Charges/Coding Visit Charges Inpatient E&M: 52952 Init Hosp L3 Procedures Hospitalists Procedures: 28415 Advncd Care Plan 30 Min 10/08/24 0032 <Electronically signed by Kelsie Muñoz MD> Cosigner Signature (if applicable): CC: Dr. Kelsie Muñoz MD; Dr. Kierra Santiago MD~ Signed [facility] Work Phone: Reason for referral (narrative)* Outpatient Procedure (Routine) - Authorized Specialty Diagnoses / Procedures Referred By Gilbert vaughn Referred [facility] Diagnoses Stenosis of carotid artery, unspecified laterality History of carotid endarterectomy Procedures US CAROTID ARTERIES KWADWO VAS LAB DUPLEX SCAN EXTRACRANIAL ART COMPL BI STUDY Anastasiia Colón APRN.STUDENT EDUCATION SPECIALIST [address] [place] [address] [facility] [address] [place] [address] Referral ID Status Reason Start Date Expiration Date Visits Requested Visits Authorized [id number] Authorized Auto-Generat ed Referral 07/01/2022 07/01/2023 1 [...] NEW HIGH MDM 60-74 MINUTES Anastasiia Colón APRN.STUDENT EDUCATION SPECIALIST [address] [place] [address] Referral ID Status Reason Start Date Expiration Date Visits Requested Visits Authorized [id number] Pending Review PCP Requested Referral 07/01/2022 07/01/2023 1 1 [facility] for referral (narrative)* Outpatient Procedure (Routine) - Pending Review Specialty Diagnoses / Procedures Referred By Contac t Referred To Contact [facility] Diagnoses Carotid stenosis, asymptomatic, bilateral Procedures US CAROTID ARTERIES KWADWO VAS LAB DUPLEX SCAN EXTRACRANIAL ART COMPL BI STUDY Pal Johnson MD [address] [place] [address] [facility] [address] [address] Referral ID Status Reason Start Date Expiration Date Visits Requested Visits Authorized [id number] Pending Review Auto-Generat ed Referral 12/01/2022 12/01/2023 1 1 [facility] for referral (narrative)* Outpatient Procedure (Routine) - Authorized Specialty Diagnoses / Procedures Referred By Contac t Referred To Contact [facility] Diagnoses Bilateral carotid artery stenosis Procedures US CAROTID ARTERIES KWADWO VAS LAB DUPLEX SCAN EXTRACRANIAL ART COMPL BI STUDY Lelo Sood, SUPERVISOR LABORATORY ANIMAL FACILITY.PURCHASING ADMINISTRATOR [address] [place] [address] [address] Referral ID Status Reason Start Date Expiration Date Visits Requested Visits Authorized [id number] Authorized Auto-Generat ed Referral 03/14/2024 1 1 Electronically signed by Lelo Sood SUPERVISOR LABORATORY ANIMAL FACILITY.PURCHASING ADMINISTRATOR at 03/15/2023 10:58 AM EST [facility] for referral (narrative)* Outpatient Procedure (Routine) - Authorized Specialty Diagnoses / Procedures Referred By Contac t Referred To Contact [facility] Diagnoses Bilateral carotid artery stenosis Procedures US CAROTID ARTERIES KWADWO VAS LAB DUPLEX SCAN EXTRACRANIAL ART COMPL BI STUDY Mary Kay Delgado DO [address] [place] [address] [facility] [place] [address] [place] [address] Referral ID Status Reason Start Date Expiration Date Visits Requested Visits Authorized [id number] Authorized Auto-Generat ed Referral 10/04/2023 10/03/2024 1 1 [facility] for referral (narrative)* Diagnostic Procedure Only (Routine) - Authorized Specialty Diagnoses / Procedures Referred By Contac t Referred To Contact [facility] Diagnoses Elevated alanine aminotransferase (ALT) level Procedures US ABD RIGHT UPPER QUADRANT US ABDOMINAL REAL TIME W/IMAGE LIMITED Rula Benavides SUPERVISOR LABORATORY ANIMAL FACILITY.PURCHASING ADMINISTRATOR [address] [place] [address] [place] [address] Referral ID Status Reason Start Date Expiration Date Visits Requested Visits Authorized [id number] Authorized Auto-Generat ed Referral 11/18/2023 12/17/2024 1 1 [facility] for referral (narrative)* Diagnostic Procedure Only (Routine) - Closed Specialty Diagnoses / Procedures Referred By Contac t Referred To Contact [facility] Diagnoses Elevated alanine aminotransferase (ALT) level Procedures US ABD RIGHT UPPER QUADRANT US ABDOMINAL REAL TIME W/IMAGE LIMITED Rula Benavides APRN.PURCHASING ADMINISTRATOR [address] [place] [address] [place] [address] Referral ID Status Reason Start Date Expiration Date V isits Requested Visits Authorized [id number] Closed Auto-Generate d Referral 11/18/2023 12/17/2024 1 1 [facility] for referral (narrative)* Outpatient Procedure (Routine) - Authorized Specialty Diagnoses / Procedures Referred By Contac t Referred [facility] Diagnoses Aortic valve disorder Procedures ECHO ECHO TTHRC R-T 2D W/WOM-MODE COMPL SPEC&COLR D Terrence Jane MD [address], [address] [place] [address] [facility] [place] [address] [place] [address] Referral ID Status Reason Start Date Expiration Date Visits Requested Visits Authorized [id number] Authorized Auto-Generat ed Referral 4 04/23/2025 [address] [facility] ([facility])No reason for referral information availableLarue Medical Services Work Phone: Reason for visit Narrative* Outpatient Procedure (Routine) - Closed Specialty Diagnoses / Procedures Referred By Contac t Referred To [facility] Diagnoses Chest pain, unspecified type Procedures STRESS ECHO TREADMILL ECHO TTHRC R-T 2D W/WO M-MODE COMPLETE REST&ST [place] Anastasiia, SUPERVISOR LABORATORY ANIMAL FACILITY.STUDENT EDUCATION SPECIALIST [address] [place] [address] [facility] [place] [address] [place] [address] Referral ID Status Reason Start Date Expiration Date V isits Requested Visits Authorized [id number] Closed Auto-Generate d Referral 10/12/2023 05/01/2024 [address] [facility] Reason for Referral Specialty Diagnoses / Procedures Referred By Gilbert t Referred To Contact Ophthalmology Diagnoses Screening for diabetic retinopathy Procedures CONSULT TO OPHTHALMOLOGY OFFICE/OUTPATIENT [facility] 60-74 MINUTES [place] Anastasiia, SUPERVISOR LABORATORY ANIMAL FACILITY.STUDENT EDUCATION SPECIALIST [address] [place] [address] Referral ID Status Reason Start Date Expiration Date Visits Requested Visits Authorized [id number] Authorized PCP Requested Referral 08/02/2022 08/02/2023 1 1 Specialty Diagnoses / Procedures Referred By Contac t Referred To Contact Vascular Surgery Diagnoses Stenosis of carotid artery, unspecified laterality History of carotid endarterectomy History of transient ischemic attack (TIA) Stenosis of left carotid artery Procedures CONSULT TO VASCULAR SURGERY OFFICE/OUTPATIENT [facility] 60-74 MINUTES [place] Anastasiia, SUPERVISOR LABORATORY ANIMAL FACILITY.STUDENT EDUCATION SPECIALIST [address] [place] [address] Referral ID Status Reason Start Date Expiration Date Visits Requested Visits Authorized [id number] Authorized PCP Requested Referral 08/10/2022 08/10/2023 1 1 Specialty Diagnoses / Procedures Referred By Contac t Referred To Contact Vascular Medicine Diagnoses Stenosis of carotid artery, unspecified laterality History of carotid endarterectomy History of transient ischemic attack (TIA) Stenosis of left carotid artery Procedures CONSULT TO VASCULAR MEDICINE OFFICE/OUTPATIENT NEW HIGH MDM 60-74 MINUTES Anastasiia Colón, SUPERVISOR LABORATORY ANIMAL FACILITY.STUDENT EDUCATION SPECIALIST [address] [place] [address] Referral ID Status Reason Start Date Expiration Date Visits Requested Visits Authorized [id number] Authorized PCP Requested Referral 08/10/2022 08/10/2023 1 1 Specialty Diagnoses / Procedures Referred By Contac t Referred To Contact CT IMAGING Diagnoses Lung nodules Procedures CT CHEST WO IVCON DIAGNOSTIC COMPUTED TOMOGRAPHY THORAX W/O CNTRST Mary Kay Delgado, DO [address] [place] [address] Ct Imaging [facility] Referral ID Status Reason Start Date Expiration Date V isits Requested Visits Authorized [id number] Closed Auto-Generate d Referral 11/08/2022 12/08/2023 1 1 Specialty Diagnoses / Procedures Referred By Contac t Referred To Contact CT IMAGING Diagnoses Occlusion and stenosis of unspecified carotid artery Procedures CTA NECK W IVCON CT ANGIOGRAPHY NECK W/CONTRAST/NONCONTRAST Mary Kay Delgado, DO [address] [place] [address] Ct Imaging [facility] Referral ID Status Reason Start Date Expiration Date V isits Requested Visits Authorized [id number] Closed Auto-Generate d Referral 09/21/2022 10/21/2023 1 1 Specialty Diagnoses / Procedures Referred By Contac t Referred To Contact CT IMAGING Diagnoses Occlusion and stenosis of unspecified carotid artery Procedures CTA HEAD W IVCON CT ANGIOGRAPHY HEAD W/CONTRAST/NONCONTRAST Mary Kay Delgado, DO [address] [place] [address] Ct Imaging [facility]95 Referral ID Status Reason Start Date Expiration Date V isits Requested Visits Authorized [id number] Closed Auto-Generate d Referral 09/21/2022 10/21/2023 1 1 Specialty Diagnoses / Procedures Referred By Contac t Referred To Contact Dermatology Diagnoses Facial lesion Procedures CONSULT TO DERMATOLOGY Anastasiia Colón, SHANNAN.STUDENT EDUCATION SPECIALIST [address] [place] [address] Referral ID Status Reason Start Date Expiration Date Visits Requested Visits Authorized [id number] Ref Not Required PCP Requested Referral 06/07/2023 06/06/2024 1 1 Specialty Diagnoses / Procedures Referred By Contac t Referred To Contact Diagnoses Uncontrolled type 2 diabetes mellitus with hyperglycemia (HCC) Procedures CONSULT TO DIABETES EDUCATION DSME/MNT MEDICAL NUTRITION ASSMT&IVNTJ INDIV EACH 15 [place] MEDICAL NUTRITION ASSMT&IVNTJ INDIV EACH 15 [place] MEDICAL NUTRITION ASSMT&IVNTJ INDIV EACH 15 [place] MEDICAL NUTRITION ASSMT&IVNTJ INDIV EACH 15 [place] Anastasiia Colón, SUPERVISOR LABORATORY ANIMAL FACILITY.[facility] [address] [place] [id number] Referral ID Status Reason Start Date Expiration Date Visits Requested Visits Authorized [id number] Pending Review PCP Requested Referral 10/11/2023 10/10/2024 1 1 Specialty Diagnoses / Procedures Referred By Contac t Referred To Contact Gastroenterology Diagnoses Transaminitis Procedures CONSULT TO GASTROENTEROLOGY OFFICE/OUTPATIENT [facility] 60 MINUTES Anastasiia Colón, SUPERVISOR LABORATORY ANIMAL FACILITY.STUDENT EDUCATION SPECIALIST [address] [place] [address] Referral ID Status Reason Start Date Expiration Date Visits Requested Visits Authorized [id number] Pending Review PCP Requested Referral 10/10/2023 10/09/2024 1 1 Specialty Diagnoses / Procedures Referred By Contac t Referred To Contact [facility] Diagnoses Chest pain, unspecified type Procedures STRESS ECHO TREADMILL ECHO TTHRC R-T 2D W/WO M-MODE COMPLETE REST&ST Anastasiia Colón, SUPERVISOR LABORATORY ANIMAL FACILITY.STUDENT EDUCATION SPECIALIST [address] [place] [address] [facility] [address] [place] [address] Referral ID Status Reason Start Date Expiration Date Visits Requested Visits Authorized [id number] Pending Review Auto-Generat ed Referral 10/10/2023 10/09/2024 1 1 Specialty Diagnoses / Procedures Referred By Contac t Referred To Contact Cardiology Diagnoses Atrial fibrillation, unspecified type (HCC) Chest pain, unspecified type Procedures CONSULT TO CARDIOLOGY OFFICE/OUTPATIENT [facility] 60 MINUTES Anastasiia Colón, SUPERVISOR LABORATORY ANIMAL FACILITY.STUDENT EDUCATION SPECIALIST [address] [place] [address] Referral ID Status Reason Start Date Expiration Date Visits Requested Visits Authorized [id number] Pending Review PCP Requested Referral 10/10/2023 10/09/2024 1 1 Specialty Diagnoses / Procedures Referred By Contac t Referred To Contact CT IMAGING Diagnoses Lung nodules Procedures CT CHEST WO IVCON DIAGNOSTIC COMPUTED TOMOGRAPHY THORAX W/O CNTRST Anastasiia Colón, SUPERVISOR LABORATORY ANIMAL FACILITY.STUDENT EDUCATION SPECIALIST [address] [place] [address] [place] [address] Referral ID Status Reason Start Date Expiration Date Visits Requested Visits Authorized [id number] Authorized Auto-Generat ed Referral 05/02/2023 05/01/2024 1 1 Referral ID Status Reason Start Date Expiration Date Visits Requested Visits Authorized [id number] Authorized Auto-Generat ed Referral 05/08/2024 06/07/2025 1 1 Referral ID Status Reason Start Date Expiration Date Visits Requested Visits Authorized [id number] Authorized Auto-Generat ed Referral 05/08/2024 06/07/2025 1 1 Advance Directives No Advanced Directives Records FoundDocuments on File Type Date Recorded 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 Advance Directive(s) 01/11/2024 10:31 AM Documents on File Type Date Recorded 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 Yes March 20, 2024 2:40pm Name of Medical Power of Form Presser Ruth Pritchard March 20, 2024 2:40pm Living Will Yes April 04 9:05am Do you have a Healthcare Power of Form Presser? Yes April 04, 2024 9:05am Name of Medical Power of Form Presser DORIS April 04, 2024 9:05am Advance Directive Response Recorded Date/ Time Living Will Yes August 17, 2024 10:51am Do you have a Healthcare Power of Form Presser? Yes August 17, 2024 10:51am Name of Medical Power of Form Presser August 17, 2024 10:51am Advance Directive Response Recorded Date/ Time Do you have a Healthcare Power of Form Presser? Yes October 07, 2024 9:35pm Living Will Yes August 17, 2024 10:51am Do you have a Healthcare Power of Form Presser? Yes August 17, 2024 10:51am Name of Medical Power of Form Presser August 17, 2024 10:51am Advance Directive Response Recorded Date/ Time Do you have a Healthcare Power of Form Presser? Yes October 08, 2024 1:19am Living Will Yes August 17, 2024 10:51am Do you have a Healthcare Power of Form Presser? Yes August 17, 2024 10:51am Name of Medical Power of Form Presser August 17, 2024 10:51am Advance Directive Response Recorded Date/ Time Do you have a Healthcare Power of Form Presser? Yes October 08, 2024 1:19am Do you have a Healthcare Power of Form Presser? Yes January 22, 2025 11:29am Name of Medical Power of Form Presser January 07, 2025 9:22am Chief Complaint and Reason for Visit Chief Complaint Admit Date RIGHT TRANSMETATARSAL AMPUTATION Novembe r 2023 6:10pm RIGHT TRANSMETATARSAL AMPUTATION Novembe r 2023 12:58pm RIGHT TRANSMETATARSAL AMPUTATION Novembe r 2023 8:15am RIGHT TRANSMETATARSAL AMPUTATION Decembe r 2023 5:03pm RIGHT TRANSMETATARSAL AMPUTATION Decembe r 2023 8:30am [facility] 04/08 CHF May 14, 2024 1 [...] RIGHT TRANSMETATARSAL AMPUTATION Decembe r 2023 8:30am [facility] 12/8 CHF May 14, 2024 1 :25pm Encounter for surgical aftercare followi ng surgery May 28, 2024 8:56am 4 M FU, 2 M F from hospital June 8:31am Gastroesophageal reflux disease (GERD) F [facility] 2024 8:20am E-ORDER June 20, 2024 9:44am 1 M FU June 20, 2024 9:53am E-ORDER July 10, 2024 9:4 1am INT LAB ORDER July 25, 2024 11: 07am Chief Complaint Admit Date [facility] 8 CHF May 14, 2024 1 :25pm Encounter for surgical aftercare followi ng surgery May 28, 2024 8:56am 4 M FU, 2 M F from hospital June 8:31am Gastroesophageal reflux disease (GERD) F [facility] 2024 8:20am E-ORDER June 20, 2024 9:44am [...] 2024 8:20am GERD (gastroesophageal reflux disease) F [facility] 2024 8:20am Anticoagulant long-term use June 9:53am Aortic valve stenosis June 20 9:53am Chronic a-fib June 20, 2024 9:53am Hyperlipidemia June 20, 2024 9:53am Peripheral vascular disease June 9:53am Chief Complaint Admit Date 4 M FU, 2 M F from hospital June 8:31am Gastroesophageal reflux disease (GERD) F [facility] 2024 8:20am E-ORDER June 20, 2024 9:44am [...] 2024 8:20am GERD (gastroesophageal reflux disease) F [facility] 2024 8:20am Anticoagulant long-term use June 9:53am Aortic valve stenosis June 20 9:53am Chronic a-fib June 20, 2024 9:53am Hyperlipidemia June 20, 2024 9:53am Peripheral vascular disease June 9:53am Gastric ulcer August 22, 2024 11: 25am Chief Complaint Admit Date 4 M FU, 2 M F from hospital June 8:31am Gastroesophageal reflux disease (GERD) F [facility] 2024 8:20am E-ORDER June 20, 2024 9:44am [...] June 8:31am Gastroesophageal reflux disease (GERD) F [facility] 2024 8:20am E-ORDER June 20, 2024 9:44am [...] 2024 8:20am GERD (gastroesophageal reflux disease) F [facility] 2024 8:20am Anticoagulant long-term use June 9:53am [...] June 8:31am Gastroesophageal reflux disease (GERD) F [facility] 2024 8:20am E-ORDER June 20, 2024 9:44am [...] 2024 8:20am GERD (gastroesophageal reflux disease) F [facility] 2024 8:20am Anticoagulant long-term use June 9:53am [...] Peripheral vascular disease December 13, 2024 9:22am Chief Complaint Admit Date PAIN AND SWELLING October 02, 2024 12:51 [...] SURGERY CLEARANCE December 13, 2024 9: 22am Carotidstent, Lead Network Architect, OR Staff, TELEPHONE RECORDER, Anes. LEFT January 22, 2025 7:26am Carotidstent, Lead Network Architect, OR Staff, TELEPHONE RECORDER, Anes. LEFT January 22, 2025 9:22am Carotidstent, Lead Network Architect, OR Staff, TELEPHONE RECORDER, Anes. LEFT January 23, 2025 9:56am Reason for Visit Admit Date GERD (gastroesophageal reflux disease) J une 2024 11:42pm Iron deficiency anemia October 07, [...] Peripheral vascular disease December 13, 2024 9:22am Stenosis of left carotid artery Septembe r 2024 9:22am Chief Complaint Admit Date GI BLEED, ABLA, CHEST PAIN/?HF EXAC October [...] SURGERY CLEARANCE December 13, 2024 9: 22am Carotidstent, Lead Network Architect, OR Staff, Shawn ESQUIVEL. LEFT January 22, 2025 7:26am Carotidstent, Lead Network Architect, OR Staff, Shawn ESQUIVEL. LEFT January 22, 2025 9:22am Carotidstent, Lead Network Architect, OR Staff, Shawn ESQUIVEL. LEFT January 23, 2025 9:56am Post L TCAR 2-4 WK FU February 05, 2025 12:57pm Family History No Family History Records Found [...] or prosecute any alcohol or drug abuse patient.[facility] Hospital[facility] the event this information is protected by the Federal Confidentiality of Alcohol and Drug Abuse Patient Records regulations: The Federal rules restrict any use of the information to criminally investigate or prosecute any alcohol or drug abuse patient.[facility] HospitalIn the event this information is protected by the Federal Confidentiality of Alcohol and Drug Abuse Patient Records regulations: The Federal rules restrict any use of the information to criminally investigate or prosecute any alcohol or drug abuse patient.[facility] HospitalIn the event this information is protected by the Federal Confidentiality of Alcohol and Drug Abuse Patient Records regulations: The Federal rules restrict any use of the information to criminally investigate or prosecute any alcohol or drug abuse patient.[facility] HospitalIn the event this information is protected by the Federal Confidentiality of Alcohol and Drug Abuse Patient Records regulations: The Federal rules restrict any use of the information to criminally investigate or prosecute any alcohol or drug abuse patient.[facility] HospitalIn the event this information is protected by the Federal Confidentiality of Alcohol and Drug Abuse Patient Records regulations: The Federal rules restrict any use of the information to criminally investigate or prosecute any alcohol or drug abuse patient.[facility] HospitalIn the event this information is protected by the Federal Confidentiality of Alcohol and Drug Abuse Patient Records regulations: The Federal rules restrict any use of the information to criminally investigate or prosecute any alcohol or drug abuse patient.[facility] HospitalIn the event this information is protected by the Federal Confidentiality of Alcohol and Drug Abuse Patient Records regulations: The Federal rules restrict any use of the information to criminally investigate or prosecute any alcohol or drug abuse patient.[facility] HospitalIn the event this information is protected by the Federal Confidentiality of Alcohol and Drug Abuse Patient Records regulations: The Federal rules restrict any use of the information to criminally investigate or prosecute any alcohol or drug abuse patient.[facility] HospitalIn the event this information is protected by the Federal Confidentiality of Alcohol and Drug Abuse Patient Records regulations: The Federal rules restrict any use of the information to criminally investigate or prosecute any alcohol or drug abuse patient.[facility] HospitalIn the event this information is protected by the Federal Confidentiality of Alcohol and Drug Abuse Patient Records regulations: The Federal rules restrict any use of the information to criminally investigate or prosecute any alcohol or drug abuse patient.[facility] HospitalIn the event this information is protected by the Federal Confidentiality of Alcohol and Drug Abuse Patient Records regulations: The Federal rules restrict any use of the information to criminally investigate or prosecute any alcohol or drug abuse patient.[facility] HospitalIn the event this information is protected by the Federal Confidentiality of Alcohol and Drug Abuse Patient Records regulations: The Federal rules restrict any use of the information to criminally investigate or prosecute any alcohol or drug abuse patient.[facility] HospitalIn the event this information is protected by the Federal Confidentiality of Alcohol and Drug Abuse Patient Records regulations: The Federal rules restrict any use of the information to criminally investigate or prosecute any alcohol or drug abuse patient.[facility] HospitalIn the event this information is protected by the Federal Confidentiality of Alcohol and Drug Abuse Patient Records regulations: The Federal rules restrict any use of the information to criminally investigate or prosecute any alcohol or drug abuse patient.[facility] HospitalIn the event this information is protected by the Federal Confidentiality of Alcohol and Drug Abuse Patient Records regulations: The Federal rules restrict any use of the information to criminally investigate or prosecute any alcohol or drug abuse patient.[facility] HospitalIn the event this information is protected by the Federal Confidentiality of Alcohol and Drug Abuse Patient Records regulations: The Federal rules restrict any use of the information to criminally investigate or prosecute any alcohol or drug abuse patient.[facility] HospitalIn the event this information is protected by the Federal Confidentiality of Alcohol and Drug Abuse Patient Records regulations: The Federal rules restrict any use of the information to criminally investigate or prosecute any alcohol or drug abuse patient.[facility] HospitalIn the event this information is protected by the Federal Confidentiality of Alcohol and Drug Abuse Patient Records regulations: The Federal rules restrict any use of the information to criminally investigate or prosecute any alcohol or drug abuse patient.[facility] HospitalIn the event this information is protected by the Federal Confidentiality of Alcohol and Drug Abuse Patient Records regulations: The Federal rules restrict any use of the information to criminally investigate or prosecute any alcohol or drug abuse patient.[facility] HospitalIn the event this information is protected by the Federal Confidentiality of Alcohol and Drug Abuse Patient Records regulations: The Federal rules restrict any use of the information to criminally investigate or prosecute any alcohol or drug abuse patient.[facility] HospitalIn the event this information is protected by the Federal Confidentiality of Alcohol and Drug Abuse Patient Records regulations: The Federal rules restrict any use of the information to criminally investigate or prosecute any alcohol or drug abuse patient.[facility] HospitalIn the event this information is protected by the Federal Confidentiality of Alcohol and Drug Abuse Patient Records regulations: The Federal rules restrict any use of the information to criminally investigate or prosecute any alcohol or drug abuse patient.[facility] HospitalIn the event this information is protected by the Federal Confidentiality of Alcohol and Drug Abuse Patient Records regulations: The Federal rules restrict any use of the information to criminally investigate or prosecute any alcohol or drug abuse patient.[facility] HospitalIn the event this information is protected by the Federal Confidentiality of Alcohol and Drug Abuse Patient Records regulations: The Federal rules restrict any use of the information to criminally investigate or prosecute any alcohol or drug abuse patient.[facility] HospitalIn the event this information is protected by the Federal Confidentiality of Alcohol and Drug Abuse Patient Records regulations: The Federal rules restrict any use of the information to criminally investigate or prosecute any alcohol or drug abuse patient.[facility] HospitalIn the event this information is protected by the Federal Confidentiality of Alcohol and Drug Abuse Patient Records regulations: The Federal rules restrict any use of the information to criminally investigate or prosecute any alcohol or drug abuse patient.[facility] HospitalIn the event this information is protected by the Federal Confidentiality of Alcohol and Drug Abuse Patient Records regulations: The Federal rules restrict any use of the information to criminally investigate or prosecute any alcohol or drug abuse patient.[facility] HospitalIn the event this information is protected by the Federal Confidentiality of Alcohol and Drug Abuse Patient Records regulations: The Federal rules restrict any use of the information to criminally investigate or prosecute any alcohol or drug abuse patient.[facility] HospitalIn the event this information is protected by the Federal Confidentiality of Alcohol and Drug Abuse Patient Records regulations: The Federal rules restrict any use of the information to criminally investigate or prosecute any alcohol or drug abuse patient.[facility] HospitalIn the event this information is protected by the Federal Confidentiality of Alcohol and Drug Abuse Patient Records regulations: The Federal rules restrict any use of the information to criminally investigate or prosecute any alcohol or drug abuse patient.[facility] HospitalIn the event this information is protected by the Federal Confidentiality of Alcohol and Drug Abuse Patient Records regulations: The Federal rules restrict any use of the information to criminally investigate or prosecute any alcohol or drug abuse patient.[facility] HospitalIn the event this information is protected by the Federal Confidentiality of Alcohol and Drug Abuse Patient Records regulations: The Federal rules restrict any use of the information to criminally investigate or prosecute any alcohol or drug abuse patient.[facility] HospitalIn the event this information is protected by the Federal Confidentiality of Alcohol and Drug Abuse Patient Records regulations: The Federal rules restrict any use of the information to criminally investigate or prosecute any alcohol or drug abuse patient.[facility] HospitalIn the event this information is protected by the Federal Confidentiality of Alcohol and Drug Abuse Patient Records regulations: The Federal rules restrict any use of the information to criminally investigate or prosecute any alcohol or drug abuse patient.[facility] HospitalIn the event this information is protected by the Federal Confidentiality of Alcohol and Drug Abuse Patient Records regulations: The Federal rules restrict any use of the information to criminally investigate or prosecute any alcohol or drug abuse patient.[facility] HospitalIn the event this information is protected by the Federal Confidentiality of Alcohol and Drug Abuse Patient Records regulations: The Federal rules restrict any use of the information to criminally investigate or prosecute any alcohol or drug abuse patient.[facility] HospitalIn the event this information is protected by the Federal Confidentiality of Alcohol and Drug Abuse Patient Records regulations: The Federal rules restrict any use of the information to criminally investigate or prosecute any alcohol or drug abuse patient.[facility] HospitalIn the event this information is protected by the Federal Confidentiality of Alcohol and Drug Abuse Patient Records regulations: The Federal rules restrict any use of the information to criminally investigate or prosecute any alcohol or drug abuse patient.[facility] HospitalIn the event this information is protected by the Federal Confidentiality of Alcohol and Drug Abuse Patient Records regulations: The Federal rules restrict any use of the information to criminally investigate or prosecute any alcohol or drug abuse patient.[facility] HospitalIn the event this information is protected by the Federal Confidentiality of Alcohol and Drug Abuse Patient Records regulations: The Federal rules restrict any use of the information to criminally investigate or prosecute any alcohol or drug abuse patient.[facility] HospitalIn the event this information is protected by the Federal Confidentiality of Alcohol and Drug Abuse Patient Records regulations: The Federal rules restrict any use of the information to criminally investigate or prosecute any alcohol or drug abuse patient.[facility] HospitalIn the event this information is protected by the Federal Confidentiality of Alcohol and Drug Abuse Patient Records regulations: The Federal rules restrict any use of the information to criminally investigate or prosecute any alcohol or drug abuse patient.[facility] HospitalIn the event this information is protected by the Federal Confidentiality of Alcohol and Drug Abuse Patient Records regulations: The Federal rules restrict any use of the information to criminally investigate or prosecute any alcohol or drug abuse patient.[facility] HospitalIn the event this information is protected by the Federal Confidentiality of Alcohol and Drug Abuse Patient Records regulations: The Federal rules restrict any use of the information to criminally investigate or prosecute any alcohol or drug abuse patient.[facility] HospitalIn the event this information is protected by the Federal Confidentiality of Alcohol and Drug Abuse Patient Records regulations: The Federal rules restrict any use of the information to criminally investigate or prosecute any alcohol or drug abuse patient.[facility] HospitalIn the event this information is protected by the Federal Confidentiality of Alcohol and Drug Abuse Patient Records regulations: The Federal rules restrict any use of the information to criminally investigate or prosecute any alcohol or drug abuse patient.[facility] HospitalIn the event this information is protected by the Federal Confidentiality of Alcohol and Drug Abuse Patient Records regulations: The Federal rules restrict any use of the information to criminally investigate or prosecute any alcohol or drug abuse patient.[facility] HospitalIn the event this information is protected by the Federal Confidentiality of Alcohol and Drug Abuse Patient Records regulations: The Federal rules restrict any use of the information to criminally investigate or prosecute any alcohol or drug abuse patient.[facility] HospitalIn the event this information is protected by the Federal Confidentiality of Alcohol and Drug Abuse Patient Records regulations: The Federal rules restrict any use of the information to criminally investigate or prosecute any alcohol or drug abuse patient.[facility] HospitalIn the event this information is protected by the Federal Confidentiality of Alcohol and Drug Abuse Patient Records regulations: The Federal rules restrict any use of the information to criminally investigate or prosecute any alcohol or drug abuse patient.[facility] HospitalIn the event this information is protected by the Federal Confidentiality of Alcohol and Drug Abuse Patient Records regulations: The Federal rules restrict any use of the information to criminally investigate or prosecute any alcohol or drug abuse patient.[facility] HospitalIn the event this information is protected by the Federal Confidentiality of Alcohol and Drug Abuse Patient Records regulations: The Federal rules restrict any use of the information to criminally investigate or prosecute any alcohol or drug abuse patient.[facility] HospitalIn the event this information is protected by the Federal Confidentiality of Alcohol and Drug Abuse Patient Records regulations: The Federal rules restrict any use of the information to criminally investigate or prosecute any alcohol or drug abuse patient.[facility] HospitalIn the event this information is protected by the Federal Confidentiality of Alcohol and Drug Abuse Patient Records regulations: The Federal rules restrict any use of the information to criminally investigate or prosecute any alcohol or drug abuse patient.[facility] HospitalIn the event this information is protected by the Federal Confidentiality of Alcohol and Drug Abuse Patient Records regulations: The Federal rules restrict any use of the information to criminally investigate or prosecute any alcohol or drug abuse patient.[facility] HospitalIn the event this information is protected by the Federal Confidentiality of Alcohol and Drug Abuse Patient Records regulations: The Federal rules restrict any use of the information to criminally investigate or prosecute any alcohol or drug abuse patient.[facility] HospitalIn the event this information is protected by the Federal Confidentiality of Alcohol and Drug Abuse Patient Records regulations: The Federal rules restrict any use of the information to criminally investigate or prosecute any alcohol or drug abuse patient.[facility] HospitalIn the event this information is protected by the Federal Confidentiality of Alcohol and Drug Abuse Patient Records regulations: The Federal rules restrict any use of the information to criminally investigate or prosecute any alcohol or drug abuse patient.[facility] HospitalIn the event this information is protected by the Federal Confidentiality of Alcohol and Drug Abuse Patient Records regulations: The Federal rules restrict any use of the information to criminally investigate or prosecute any alcohol or drug abuse patient.[facility] HospitalIn the event this information is protected by the Federal Confidentiality of Alcohol and Drug Abuse Patient Records regulations: The Federal rules restrict any use of the information to criminally investigate or prosecute any alcohol or drug abuse patient.[facility] HospitalIn the event this information is protected by the Federal Confidentiality of Alcohol and Drug Abuse Patient Records regulations: The Federal rules restrict any use of the information to criminally investigate or prosecute any alcohol or drug abuse patient.[facility] HospitalIn the event this information is protected by the Federal Confidentiality of Alcohol and Drug Abuse Patient Records regulations: The Federal rules restrict any use of the information to criminally investigate or prosecute any alcohol or drug abuse patient.[facility] HospitalIn the event this information is protected by the Federal Confidentiality of Alcohol and Drug Abuse Patient Records regulations: The Federal rules restrict any use of the information to criminally investigate or prosecute any alcohol or drug abuse patient.[facility] HospitalIn the event this information is protected by the Federal Confidentiality of Alcohol and Drug Abuse Patient Records regulations: The Federal rules restrict any use of the information to criminally investigate or prosecute any alcohol or drug abuse patient.[facility] HospitalIn the event this information is protected by the Federal Confidentiality of Alcohol and Drug Abuse Patient Records regulations: The Federal rules restrict any use of the information to criminally investigate or prosecute any alcohol or drug abuse patient.[facility] HospitalIn the event this information is protected by the Federal Confidentiality of Alcohol and Drug Abuse Patient Records regulations: The Federal rules restrict any use of the information to criminally investigate or prosecute any alcohol or drug abuse patient.[facility] HospitalIn the event this information is protected by the Federal Confidentiality of Alcohol and Drug Abuse Patient Records regulations: The Federal rules restrict any use of the information to criminally investigate or prosecute any alcohol or drug abuse patient.[facility] HospitalIn the event this information is protected by the Federal Confidentiality of Alcohol and Drug Abuse Patient Records regulations: The Federal rules restrict any use of the information to criminally investigate or prosecute any alcohol or drug abuse patient.[facility] HospitalIn the event this information is protected by the Federal Confidentiality of Alcohol and Drug Abuse Patient Records regulations: The Federal rules restrict any use of the information to criminally investigate or prosecute any alcohol or drug abuse patient.[facility] HospitalIn the event this information is protected by the Federal Confidentiality of Alcohol and Drug Abuse Patient Records regulations: The Federal rules restrict any use of the information to criminally investigate or prosecute any alcohol or drug abuse patient.[facility] HospitalIn the event this information is protected by the Federal Confidentiality of Alcohol and Drug Abuse Patient Records regulations: The Federal rules restrict any use of the information to criminally investigate or prosecute any alcohol or drug abuse patient.[facility] HospitalIn the event this information is protected by the Federal Confidentiality of Alcohol and Drug Abuse Patient Records regulations: The Federal rules restrict any use of the information to criminally investigate or prosecute any alcohol or drug abuse patient.[facility] HospitalIn the event this information is protected by the Federal Confidentiality of Alcohol and Drug Abuse Patient Records regulations: The Federal rules restrict any use of the information to criminally investigate or prosecute any alcohol or drug abuse patient.[facility] HospitalIn the event this information is protected by the Federal Confidentiality of Alcohol and Drug Abuse Patient Records regulations: The Federal rules restrict any use of the information to criminally investigate or prosecute any alcohol or drug abuse patient.[facility] HospitalIn the event this information is protected by the Federal Confidentiality of Alcohol and Drug Abuse Patient Records regulations: The Federal rules restrict any use of the information to criminally investigate or prosecute any alcohol or drug abuse patient.[facility] HospitalIn the event this information is protected by the Federal Confidentiality of Alcohol and Drug Abuse Patient Records regulations: The Federal rules restrict any use of the information to criminally investigate or prosecute any alcohol or drug abuse patient.[facility] HospitalIn the event this information is protected by the Federal Confidentiality of Alcohol and Drug Abuse Patient Records regulations: The Federal rules restrict any use of the information to criminally investigate or prosecute any alcohol or drug abuse patient.[facility] HospitalIn the event this information is protected by the Federal Confidentiality of Alcohol and Drug Abuse Patient Records regulations: The Federal rules restrict any use of the information to criminally investigate or prosecute any alcohol or drug abuse patient.[facility] HospitalIn the event this information is protected by the Federal Confidentiality of Alcohol and Drug Abuse Patient Records regulations: The Federal rules restrict any use of the information to criminally investigate or prosecute any alcohol or drug abuse patient.[facility] HospitalIn the event this information is protected by the Federal Confidentiality of Alcohol and Drug Abuse Patient Records regulations: The Federal rules restrict any use of the information to criminally investigate or prosecute any alcohol or drug abuse patient.[facility] HospitalIn the event this information is protected by the Federal Confidentiality of Alcohol and Drug Abuse Patient Records regulations: The Federal rules restrict any use of the information to criminally investigate or prosecute any alcohol or drug abuse patient.[facility] HospitalIn the event this information is protected by the Federal Confidentiality of Alcohol and Drug Abuse Patient Records regulations: The Federal rules restrict any use of the information to criminally investigate or prosecute any alcohol or drug abuse patient.[facility] HospitalIn the event this information is protected by the Federal Confidentiality of Alcohol and Drug Abuse Patient Records regulations: The Federal rules restrict any use of the information to criminally investigate or prosecute any alcohol or drug abuse patient.[facility] HospitalIn the event this information is protected by the Federal Confidentiality of Alcohol and Drug Abuse Patient Records regulations: The Federal rules restrict any use of the information to criminally investigate or prosecute any alcohol or drug abuse patient.[facility] HospitalIn the event this information is protected by the Federal Confidentiality of Alcohol and Drug Abuse Patient Records regulations: The Federal rules restrict any use of the information to criminally investigate or prosecute any alcohol or drug abuse patient.[facility] HospitalIn the event this information is protected by the Federal Confidentiality of Alcohol and Drug Abuse Patient Records regulations: The Federal rules restrict any use of the information to criminally investigate or prosecute any alcohol or drug abuse patient.[facility] HospitalIn the event this information is protected by the Federal Confidentiality of Alcohol and Drug Abuse Patient Records regulations: The Federal rules restrict any use of the information to criminally investigate or prosecute any alcohol or drug abuse patient.[facility] HospitalIn the event this information is protected by the Federal Confidentiality of Alcohol and Drug Abuse Patient Records regulations: The Federal rules restrict any use of the information to criminally investigate or prosecute any alcohol or drug abuse patient.[facility] HospitalIn the event this information is protected by the Federal Confidentiality of Alcohol and Drug Abuse Patient Records regulations: The Federal rules restrict any use of the information to criminally investigate or prosecute any alcohol or drug abuse patient.[facility] HospitalIn the event this information is protected by the Federal Confidentiality of Alcohol and Drug Abuse Patient Records regulations: The Federal rules restrict any use of the information to criminally investigate or prosecute any alcohol or drug abuse patient.[facility] HospitalIn the event this information is protected by the Federal Confidentiality of Alcohol and Drug Abuse Patient Records regulations: The Federal rules restrict any use of the information to criminally investigate or prosecute any alcohol or drug abuse patient.[facility] HospitalIn the event this information is protected by the Federal Confidentiality of Alcohol and Drug Abuse Patient Records regulations: The Federal rules restrict any use of the information to criminally investigate or prosecute any alcohol or drug abuse patient.[facility] HospitalIn the event this information is protected by the Federal Confidentiality of Alcohol and Drug Abuse Patient Records regulations: The Federal rules restrict any use of the information to criminally investigate or prosecute any alcohol or drug abuse patient.[facility] HospitalIn the event this information is protected by the Federal Confidentiality of Alcohol and Drug Abuse Patient Records regulations: The Federal rules restrict any use of the information to criminally investigate or prosecute any alcohol or drug abuse patient.[facility] HospitalIn the event this information is protected by the Federal Confidentiality of Alcohol and Drug Abuse Patient Records regulations: The Federal rules restrict any use of the information to criminally investigate or prosecute any alcohol or drug abuse patient.[facility] HospitalIn the event this information is protected by the Federal Confidentiality of Alcohol and Drug Abuse Patient Records regulations: The Federal rules restrict any use of the information to criminally investigate or prosecute any alcohol or drug abuse patient.[facility] HospitalIn the event this information is protected by the Federal Confidentiality of Alcohol and Drug Abuse Patient Records regulations: The Federal rules restrict any use of the information to criminally investigate or prosecute any alcohol or drug abuse patient.[facility] HospitalIn the event this information is protected by the Federal Confidentiality of Alcohol and Drug Abuse Patient Records regulations: The Federal rules restrict any use of the information to criminally investigate or prosecute any alcohol or drug abuse patient.[facility] HospitalIn the event this information is protected by the Federal Confidentiality of Alcohol and Drug Abuse Patient Records regulations: The Federal rules restrict any use of the information to criminally investigate or prosecute any alcohol or drug abuse patient.[facility] HospitalIn the event this information is protected by the Federal Confidentiality of Alcohol and Drug Abuse Patient Records regulations: The Federal rules restrict any use of the information to criminally investigate or prosecute any alcohol or drug abuse patient.[facility] HospitalIn the event this information is protected by the Federal Confidentiality of Alcohol and Drug Abuse Patient Records regulations: The Federal rules restrict any use of the information to criminally investigate or prosecute any alcohol or drug abuse patient.[facility] HospitalIn the event this information is protected by the Federal Confidentiality of Alcohol and Drug Abuse Patient Records regulations: The Federal rules restrict any use of the information to criminally investigate or prosecute any alcohol or drug abuse patient.[facility] HospitalIn the event this information is protected by the Federal Confidentiality of Alcohol and Drug Abuse Patient Records regulations: The Federal rules restrict any use of the information to criminally investigate or prosecute any alcohol or drug abuse patient.[facility] HospitalIn the event this information is protected by the Federal Confidentiality of Alcohol and Drug Abuse Patient Records regulations: The Federal rules restrict any use of the information to criminally investigate or prosecute any alcohol or drug abuse patient.[facility] HospitalIn the event this information is protected by the Federal Confidentiality of Alcohol and Drug Abuse Patient Records regulations: The Federal rules restrict any use of the information to criminally investigate or prosecute any alcohol or drug abuse patient.[facility] HospitalIn the event this information is protected by the Federal Confidentiality of Alcohol and Drug Abuse Patient Records regulations: The Federal rules restrict any use of the information to criminally investigate or prosecute any alcohol or drug abuse patient.[facility] HospitalIn the event this information is protected by the Federal Confidentiality of Alcohol and Drug Abuse Patient Records regulations: The Federal rules restrict any use of the information to criminally investigate or prosecute any alcohol or drug abuse patient.[facility] HospitalIn the event this information is protected by the Federal Confidentiality of Alcohol and Drug Abuse Patient Records regulations: The Federal rules restrict any use of the information to criminally investigate or prosecute any alcohol or drug abuse patient.[facility] HospitalIn the event this information is protected by the Federal Confidentiality of Alcohol and Drug Abuse Patient Records regulations: The Federal rules restrict any use of the information to criminally investigate or prosecute any alcohol or drug abuse patient.[facility] HospitalIn the event this information is protected by the Federal Confidentiality of Alcohol and Drug Abuse Patient Records regulations: The Federal rules restrict any use of the information to criminally investigate or prosecute any alcohol or drug abuse patient.[facility] HospitalIn the event this information is protected by the Federal Confidentiality of Alcohol and Drug Abuse Patient Records regulations: The Federal rules restrict any use of the information to criminally investigate or prosecute any alcohol or drug abuse patient.[facility] HospitalIn the event this information is protected by the Federal Confidentiality of Alcohol and Drug Abuse Patient Records regulations: The Federal rules restrict any use of the information to criminally investigate or prosecute any alcohol or drug abuse patient.[facility] HospitalIn the event this information is protected by the Federal Confidentiality of Alcohol and Drug Abuse Patient Records regulations: The Federal rules restrict any use of the information to criminally investigate or prosecute any alcohol or drug abuse patient.[facility] HospitalIn the event this information is protected by the Federal Confidentiality of Alcohol and Drug Abuse Patient Records regulations: The Federal rules restrict any use of the information to criminally investigate or prosecute any alcohol or drug abuse patient.[facility] HospitalIn the event this information is protected by the Federal Confidentiality of Alcohol and Drug Abuse Patient Records regulations: The Federal rules restrict any use of the information to criminally investigate or prosecute any alcohol or drug abuse patient.[facility] HospitalIn the event this information is protected by the Federal Confidentiality of Alcohol and Drug Abuse Patient Records regulations: The Federal rules restrict any use of the information to criminally investigate or prosecute any alcohol or drug abuse patient.[facility] HospitalIn the event this information is protected by the Federal Confidentiality of Alcohol and Drug Abuse Patient Records regulations: The Federal rules restrict any use of the information to criminally investigate or prosecute any alcohol or drug abuse patient.[facility] HospitalIn the event this information is protected by the Federal Confidentiality of Alcohol and Drug Abuse Patient Records regulations: The Federal rules restrict any use of the information to criminally investigate or prosecute any alcohol or drug abuse patient.[facility] HospitalIn the event this information is protected by the Federal Confidentiality of Alcohol and Drug Abuse Patient Records regulations: The Federal rules restrict any use of the information to criminally investigate or prosecute any alcohol or drug abuse patient.[facility] HospitalIn the event this information is protected by the Federal Confidentiality of Alcohol and Drug Abuse Patient Records regulations: The Federal rules restrict any use of the information to criminally investigate or prosecute any alcohol or drug abuse patient.[facility] HospitalIn the event this information is protected by the Federal Confidentiality of Alcohol and Drug Abuse Patient Records regulations: The Federal rules restrict any use of the information to criminally investigate or prosecute any alcohol or drug abuse patient.[facility] HospitalIn the event this information is protected by the Federal Confidentiality of Alcohol and Drug Abuse Patient Records regulations: The Federal rules restrict any use of the information to criminally investigate or prosecute any alcohol or drug abuse patient.[facility] HospitalIn the event this information is protected by the Federal Confidentiality of Alcohol and Drug Abuse Patient Records regulations: The Federal rules restrict any use of the information to criminally investigate or prosecute any alcohol or drug abuse patient.[facility] HospitalIn the event this information is protected by the Federal Confidentiality of Alcohol and Drug Abuse Patient Records regulations: The Federal rules restrict any use of the information to criminally investigate or prosecute any alcohol or drug abuse patient.[facility] HospitalIn the event this information is protected by the Federal Confidentiality of Alcohol and Drug Abuse Patient Records regulations: The Federal rules restrict any use of the information to criminally investigate or prosecute any alcohol or drug abuse patient.[facility] HospitalIn the event this information is protected by the Federal Confidentiality of Alcohol and Drug Abuse Patient Records regulations: The Federal rules restrict any use of the information to criminally investigate or prosecute any alcohol or drug abuse patient.[facility] Reason for Visit (unrecogniz ed section and content) Reason Comments New was at admitted at [facility]- dx CHF and a-fib Specialty Diagnoses / Procedures Referred By Gilbert vaughn Referred To Contact Gastroenterology Diagnoses Transaminitis Procedures CONSULT TO GASTROENTEROLOGY OFFICE/OUTPATIENT NEW HIGH MDM 60 MINUTES Anastasiia Colón APRN.STUDENT EDUCATION SPECIALIST [address] [place] [address] [address] [place] [address] Referral ID Status Reason Start Date Expiration Date Visits Requested Visits Authorized [id number] Authorized PCP Requested Referral 10/12/2023 05/01/2024 99 [...] MIN EST PATIENT Kierra Santiago MD [address] [place] [address] Mary Kay Delgado, DO [address] [place] [address] Referral ID Status Reason Start Date Expiration Date V isits Requested Visits Authorized [id number] Authorized 09/13/2023 05/01/2024 99 99 Reason Comments Follow Up Specialty Diagnoses / Procedures Referred By Contac t Referred To Contact Vascular Surgery / VASCULAR SURGERY Diagnoses Carotid stenosis, asymptomatic, bilateral 3 MONTH FOLLOW UP WIHT CAROTID TESTING Procedures OFFICE/OUTPATIENT ESTABLISHED HIGH MDM 40-54 MIN EST PATIENT Pal Johnson MD [address] [place] [address] Pal Johnson MD [address] [place] [address] Referral ID Status Reason Start Date Expiration Date V isits Requested Visits Authorized [id number] Authorized 03/01/2023 05/01/2023 99 99 Reason Comments [...] NEW HIGH MDM 60-74 MINUTES Anastasiia Colón, SUPER[employer]OR [employer].STUDENT EDUCATION SPECIALIST [address] [place] [address] Referral ID Status Reason Start Date Expiration Date V isits Requested Visits Authorized [id number] Closed PCP Requested Referral 08/10/2022 08/10/2023 1 1 Specialty Diagnoses / Procedures Referred By Contac t Referred To Contact Vascular Surgery / VASCULAR SURGERY Diagnoses carotid endart / dr delgado referral Procedures OFFICE/OUTPATIENT ESTABLISHED HIGH MDM 40-54 MIN EST PATIENT Mary Kay Delgado DO [address] [address] Pal Johnson MD [address] [place] [address] Referral ID Status Reason Start Date Expiration Date Visits Re quested Visits Authorized [id number] Closed 11/10/2022 05/01/2023 1 1 Reason Onset [...] THORAX W/O CNTRST Mary Kay Delgado, DO [address] [place] [address] Ct Imaging [place] [address] Referral ID Status Reason Start Date Expiration Date V isits Requested Visits Authorized [id number] Closed Auto-Generate d Referral 11/08/2022 12/08/2023 [address] Specialty Diagnoses / Procedures Referred By Contac t Referred To Contact CT IMAGING Diagnoses Occlusion and stenosis of unspecified carotid artery Procedures CTA NECK W IVCON CT ANGIOGRAPHY NECK W/CONTRAST/NONCONTRAST Mary Kay Delgado, DO [address] [place] [address] Ct Imaging [place] [address] Referral ID Status Reason Start Date Expiration Date V isits Requested Visits Authorized [id number] Closed Auto-Generate d Referral 09/21/2022 10/21/2023 1 [...] DSME/MNT MEDICAL NUTRITION ASSMT&IVNTJ INDIV EACH 15 [place] MEDICAL NUTRITION ASSMT&IVNTJ INDIV EACH 15 [place] MEDICAL NUTRITION ASSMT&IVNTJ INDIV EACH 15 [place] MEDICAL NUTRITION ASSMT&IVNTJ INDIV EACH 15 [place] Anastasiia Colón, SHNANAN.STUDENT EDUCATION SPECIALIST [address] [place] [address] [address] [place] [address] Referral ID Status Reason Start Date Expiration Date V isits Requested Visits Authorized [id number] Closed PCP Requested Referral 10/12/2023 05/01/2024 1 1 Reason Comments Patient Update Reason Comments Radiology CT Specialty Diagnoses / Procedures Referred By Contac t Referred To Contact CT IMAGING Diagnoses Lung nodules Procedures CT CHEST WO IVCON DIAGNOSTIC COMPUTED TOMOGRAPHY THORAX W/O CNTRST Anastasiia Colón, SUPERVISOR LABORATORY ANIMAL FACILITY.STUDENT EDUCATION SPECIALIST [address] [place] [address] [place] [address] Referral ID Status Reason Start Date Expiration Date V isits Requested Visits Authorized [id number] Closed Auto-Generate d Referral 05/02/2023 05/01/2024 1 1 Reason Onset Date Comments Refill Request 11/04/2023 Reason Comments Follow Up Reason Comments Gas Had 2 episodes of ch est tightness Reason Comments Radiology US Specialty Diagnoses / Procedures [facility] IMAGING Diagnoses Elevated alanine aminotransferase (ALT) level Procedures US ABD RIGHT UPPER QUADRANT US ABDOMINAL REAL TIME W/IMAGE LIMITED Rula Benavides, SUPERVISOR LABORATORY ANIMAL FACILITY.PURCHASING ADMINISTRATOR [address] [place] [address] [place] [address] Referral ID Status Reason Start Date Expiration Date V isits Requested Visits Authorized [id number] Closed Auto-Generate d Referral 11/18/2023 12/17/2024 1 1 Reason Comments Sinus Problem bodyaches, nausea, d iarrhea x 1 day Reason Comments Labs needed? Reason Onset Date Comments Refill Request 12/30/2023 Reason Onset Date Comments Transition Of Care 01/14/2024 Reason Comments Home Health Orders Reason Comments [facility] PT POC Reason Comments Home Health Point of Care Results Reason Comments Hospital F/U Reason Comments F/U 3 Month Labs prior Reason Comments Hospital F/U Reason Comments Home Care Management Reason Comments Question Reason Comments Orders Reason Comments Physical Therapy Plan of Care Reason Comments [facility] HH - INR message Reason Comments Forms HH certificate plan of care 04/09/24 Reason Comments Established Patient Specialty Diagnoses / Procedures [facility] Referred To Contact Peripheral Vascular / VASCULAR SURGERY Diagnoses Encounter for follow-up examination after completed treatment for conditions other than malignant neoplasm follow up after testing Procedures OFFICE/OUTPATIENT ESTABLISHED HIGH MDM 40 MIN EST PATIENT Mary Kay Delgado, DO [address] [place] [address] Mary Kay Delgado, DO [address] [place] [address] Referral ID Status Reason Start Date Expiration Date V isits Requested Visits Authorized [id number] Authorized 05/04/2024 05/01/2025 99 99 Reason Comments [...] Care Teams (unrecognized sec tion and content) Bander Relationship Specialty Start Date End Date Kierra Santiago MD [address] [place] [address] PCP - General Internal Medicine 07/01/22 Bander Relationship Specialty Start Date End Date Kierra Santiago MD [address] [place] [address] PCP - General Internal Medicine 07/01/22 Bander Relationship Specialty Start Date End Date Kierra Santiago MD [address] [place] [address] PCP - General Internal Medicine 07/01/22 Bander Relationship Specialty Start Date End Date Kierra Santiago MD [address] [place] [address] PCP - General Internal Medicine 07/01/22 Bander Relationship Specialty Start Date End Date Kierra Santiago MD [address] [place] [address] PCP - General Internal Medicine 07/01/22 Bander Relationship Specialty Start Date End Date Kierra Santiago MD [address] [place] [address] PCP - General Internal Medicine 07/01/22 Bander Relationship Specialty Start Date End Date Kierra Santiago MD [address] [place] [address] PCP - General Internal Medicine 07/01/22 Bander Relationship Specialty Start Date End Date Kierra Santiago MD [address] [place] [address] PCP - General Internal Medicine 07/01/22 Bander Relationship Specialty Start Date End Date Kierra Santiago MD [address] [place] [address] PCP - General Internal Medicine 07/01/22 Bander Relationship Specialty Start Date End Date Kierra Santiago MD [address] [place] [address] PCP - General Internal Medicine 07/01/22 Bander Relationship Specialty Start Date End Date Kierra Santiago MD [address] [place] [address] PCP - General Internal Medicine 07/01/22 Bander Relationship Specialty Start Date End Date Kierra Santiago MD [address] [place] [address] PCP - General Internal Medicine 07/01/22 Bander Relationship Specialty Start Date End Date Kierra Santiago MD [address] [place] [address] PCP - General Internal Medicine 07/01/22 Bander Relationship Specialty Start Date End Date Kierra Santiago MD [address] [facility] [place] [address] PCP - General Internal Medicine 07/01/22 Bander Relationship Specialty Start Date End Date Kierra Santiago MD [address] [facility] [place] [address] PCP - General Internal Medicine 07/01/22 Bander Relationship Specialty Start Date End Date Kierra Santiago MD [address] [facility] [place] [address] PCP - General Internal Medicine 07/01/22 Bander Relationship Specialty Start Date End Date Kierra Santiago MD [address] [facility] [place] [address] PCP - General Internal Medicine 07/01/22 Bander Relationship Specialty Start Date End Date Kierra Santiago MD [address] [facility] [place] [address] PCP - General Internal Medicine 07/01/22 Bander Relationship Specialty Start Date End Date Kierra Santiago MD [address] [facility] [place] [address] PCP - General Internal Medicine 07/01/22 Bander Relationship Specialty Start Date End Date Kierra Santiago MD [address] [facility] [place] [address] PCP - General Internal Medicine 07/01/22 Bander Relationship Specialty Start Date End Date Kierra Santiago MD [address] [facility] [place] [address] PCP - General Internal Medicine 07/01/22 Bander Relationship Specialty Start Date End Date Kierra Santiago MD [address] [facility] [place] [address] PCP - General Internal Medicine 07/01/22 Bander Relationship Specialty Start Date End Date Kierra Santiago MD [address] [place] [address] PCP - General Internal Medicine 07/01/22 Bander Relationship Specialty Start Date End Date Kierra Santiago MD [address] [place] [address] PCP - General Internal Medicine 07/01/22 Bander Relationship Specialty Start Date End Date Kierra Santiago MD [address] [facility] [place] [address] PCP - General Internal Medicine 07/01/22 Bander Relationship Specialty Start Date End Date Kierra Santiago MD [address] [facility] [place] [address] PCP - General Internal Medicine 07/01/22 Bander Relationship Specialty Start Date End Date Kierra Santiago MD [address] [facility] [place] [address] PCP - General Internal Medicine 07/01/22 Bander Relationship Specialty Start Date End Date Kierra Santiago MD [address] [facility] [place] [address] PCP - General Internal Medicine 07/01/22 Bander Relationship Specialty Start Date End Date Kierra Santiago MD [address] [facility] [place] [address] PCP - General Internal Medicine 07/01/22 Bander Relationship Specialty Start Date End Date Kierra Santiago MD [address] [facility] [place] [address] PCP - General Internal Medicine 07/01/22 Bander Relationship Specialty Start Date End Date Kierra Santiago MD [address] [facility] [place] [address] PCP - General Internal Medicine 07/01/22 Bander Relationship Specialty Start Date End Date Kierra Santiago MD [address] [facility] [place] [address] PCP - General Internal Medicine 07/01/22 Bander Relationship Specialty Start Date End Date Kierra Santiago MD [address] [facility] [place] [address] PCP - General Internal Medicine 07/01/22 Bander Relationship Specialty Start Date End Date Kierra Santiago MD [address] [facility] [place] [address] PCP - General Internal Medicine 07/01/22 Bander Relationship Specialty Start Date End Date Kierra Santiago MD [address] [facility] [place] [address] PCP - General Internal Medicine 07/01/22 Bander Relationship Specialty Start Date End Date Kierra Santiago MD [address] [place] [address] PCP - General Internal Medicine 07/01/22 Bander Relationship Specialty Start Date End Date Kierra Santiago MD [address] [place] [address] PCP - General Internal Medicine 07/01/22 Bander Relationship Specialty Start Date End Date Kierra Santiago MD [address] [place] [address] PCP - General Internal Medicine 07/01/22 Bander Relationship Specialty Start Date End Date Kierra Santiago MD [address] [place] [address] PCP - General Internal Medicine 07/01/22 Bander Relationship Specialty Start Date End Date Kierra Santiago MD [address] [place] [address] PCP - General Internal Medicine 07/01/22 Bander Relationship Specialty Start Date End Date Kierra Santiago MD [address] [place] [address] PCP - General Internal Medicine 07/01/22 Nancy Albert, XOCHILT [address] [place] [id number] Primary Care Counter Top Maker 01/06/24 Bander Relationship Specialty Start Date End Date Kierra Santiago MD [address] [place] [address] PCP - General Internal Medicine 07/01/22 Nancy Albert, XOCHILT [address] [place] [address] Primary Care Counter Top Maker 01/06/24 Bander Relationship Specialty Start Date End Date Kierra Santiago MD [address] [place] [address] PCP - General Internal Medicine 07/01/22 Bander Relationship Specialty Start Date End Date Kierra Santiago MD [address] [place] [address] PCP - General Internal Medicine 07/01/22 Nancy Albert RN [address] [place] [id number] Primary Care Counter Top Maker 01/06/24 01/23/24 Bander Relationship Specialty Start Date End Date Kierra Santiago MD [address] [place] [address] PCP - General Internal Medicine 07/01/22 Bander Relationship Specialty Start Date End Date Kierra Santiago MD [address] [place] [address] PCP - General Internal Medicine 07/01/22 Bander Relationship Specialty Start Date End Date Kierra Santiago MD [address] [place] [address] PCP - General Internal Medicine 07/01/22 Anastasiia Colón SUPERVISOR LABORATORY ANIMAL FACILITY.STUDENT EDUCATION SPECIALIST [address] [place] [address] Textile Bag Sewer Internal Medicine 04/09/24 Sheryl Reyes SUPERVISOR LABORATORY ANIMAL FACILITY.PURCHASING ADMINISTRATOR [address] [place] [address] [facility] Internal Medicine 04/09/24 Bander Relationship Specialty Start Date End Date Kierra Santiago MD [address] [place] [address] PCP - General Internal Medicine 07/01/22 Anastasiia Colón, SUPERVISOR LABORATORY ANIMAL FACILITY.STUDENT EDUCATION SPECIALIST [address] [place] [address] Textile Bag Sewer Internal Medicine 04/09/24 Sheryl Reyes SUPERVISOR LABORATORY ANIMAL FACILITY.PURCHASING ADMINISTRATOR [address] [place] [address] [facility] Internal Medicine 04/09/24 Bander Relationship Specialty Start Date End Date Kierra Santiago MD [address] [place] [address] PCP - General Internal Medicine 07/01/22 Anastasiia Colón, SUPERVISOR LABORATORY ANIMAL FACILITY.STUDENT EDUCATION SPECIALIST [address] [place] [address] [facility] Internal Medicine 04/09/24 Sheryl Reyes SUPERVISOR LABORATORY ANIMAL FACILITY.PURCHASING ADMINISTRATOR [address] [place] [address] [facility] Internal Medicine 04/09/24 Bander Relationship Specialty Start Date End Date Kierra Santiago MD [address] [place] [address] PCP - General Internal Medicine 07/01/22 Anastasiia Colón, SUPERVISOR LABORATORY ANIMAL FACILITY.STUDENT EDUCATION SPECIALIST [address] [place] [address] Textile Bag Sewer Internal Medicine 04/09/24 Sheryl Reyes SUPERVISOR LABORATORY ANIMAL FACILITY.PURCHASING ADMINISTRATOR [address] [place] [address] [facility] Internal Medicine 04/09/24 Bander Relationship Specialty Start Date End Date Kierra Santiago MD [address] [place] [address] PCP - General Internal Medicine 07/01/22 Anastasiia Colón, SUPERVISOR LABORATORY ANIMAL FACILITY.STUDENT EDUCATION SPECIALIST [address] [place] [address] Textile Bag Sewer Internal Medicine 04/09/24 Sheryl Reyes SUPERVISOR LABORATORY ANIMAL FACILITY.PURCHASING ADMINISTRATOR [address] [place] [address] [facility] Internal Medicine 04/09/24 Bander Relationship Specialty Start Date End Date Kierra Santiago MD [address] [place] [address] PCP - General Internal Medicine 07/01/22 Anastasiia Cloón, SUPERVISOR LABORATORY ANIMAL FACILITY.STUDENT EDUCATION SPECIALIST [address] [place] [address] [facility] Internal Medicine 04/09/24 Sheryl Reyes SUPERVISOR LABORATORY ANIMAL FACILITY.PURCHASING ADMINISTRATOR [address] [place] [address] [facility] Internal Medicine 04/09/24 Bander Relationship Specialty Start Date End Date Kierra Santiago MD [address] [place] [address] PCP - General Internal Medicine 07/01/22 Anastasiia Colón, SUPERVISOR LABORATORY ANIMAL FACILITY.STUDENT EDUCATION SPECIALIST [address] [facility] [place] [address] Textile Bag Sewer Internal Medicine 04/09/24 Sheryl Reyes APRN.PURCHASING ADMINISTRATOR [address] [place] [address] Textile Bag Sewer Internal Medicine 04/09/24 Bander Relationship Specialty Start Date End Date Kierra Santiago MD [address] [place] [address] PCP - General Internal Medicine 07/01/22 Anastasiia Colón APRN.STUDENT EDUCATION SPECIALIST [address] [place] [address] Textile Bag Sewer Internal Medicine 04/09/24 Sheryl Reyes APRN.PURCHASING ADMINISTRATOR [facility] [place] [address] Textile Bag Sewer Internal Medicine 04/09/24 Bander Relationship Specialty Start Date End Date Kierra Santiago MD [address] [place] [address] PCP - General Internal Medicine 07/01/22 Anastasiia Colón SUPERVISOR LABORATORY ANIMAL FACILITY.STUDENT EDUCATION SPECIALIST [address] [place] [address] Textile Bag Sewer Internal Medicine 04/09/24 Sheryl Reyes APRN.PURCHASING ADMINISTRATOR [address] [place] [address] Textile Bag Sewer Internal Medicine 04/09/24 Bander Relationship Specialty Start Date End Date Kierra Santiago MD [address] [place] [address] PCP - General Internal Medicine 07/01/22 Anastasiia Colón, SUPERVISOR LABORATORY ANIMAL FACILITY.STUDENT EDUCATION SPECIALIST [address] [place] [address] Textile Bag Sewer Internal Medicine 04/09/24 Sheryl Reyes APRN.PURCHASING ADMINISTRATOR [address] [place] [address] Textile Bag Sewer Internal Medicine 04/09/24 Bander Relationship Specialty Start Date End Date Kierra Santiago MD [address] [place] [address] PCP - General Internal Medicine 07/01/22 Anastasiia Colón, SUPERVISOR LABORATORY ANIMAL FACILITY.STUDENT EDUCATION SPECIALIST [address] [place] [address] Textile Bag Sewer Internal Medicine 04/09/24 Sheryl Reyes APRN.PURCHASING ADMINISTRATOR [address] [place] [address] Textile Bag Sewer Internal Medicine 04/09/24 Bander Relationship Specialty Start Date End Date Kierra Santiago MD [address] [place] [address] PCP - General Internal Medicine 07/01/22 Anastasiia Colón, SUPERVISOR LABORATORY ANIMAL FACILITY.STUDENT EDUCATION SPECIALIST [address] [place] [address] Textile Bag Sewer Internal Medicine 04/09/24 Sheryl Reyes SUPERVISOR LABORATORY ANIMAL FACILITY.PURCHASING ADMINISTRATOR [address] [place] [address] Textile Bag Sewer Internal Medicine 04/09/24 Bander Relationship Specialty Start Date End Date Kierra Santiago MD [address] [place] [address] PCP - General Internal Medicine 07/01/22 Anastasiia Colón, SUPERVISOR LABORATORY ANIMAL FACILITY.STUDENT EDUCATION SPECIALIST [address] [facility] [place] [address] Textile Bag Sewer Internal Medicine 04/09/24 Sheryl Reyes SUPERVISOR LABORATORY ANIMAL FACILITY.PURCHASING ADMINISTRATOR [address] [facility] [place] [address] [facility] Internal Medicine 04/09/24 Bander Relationship Specialty Start Date End Date Kierra Santiago MD [address] [facility] [place] [address] PCP - General Internal Medicine 07/01/22 Anastasiia Colón, SUPERVISOR LABORATORY ANIMAL FACILITY.STUDENT EDUCATION SPECIALIST [address] [facility] [place] [address] [facility] Internal Medicine 04/09/24 Sheryl Reyes SUPERVISOR LABORATORY ANIMAL FACILITY.PURCHASING ADMINISTRATOR [address] [facility] [place] [address] [facility] Internal Medicine 04/09/24 Bander Relationship Specialty Start Date End Date Kierra Santiago MD [address] [facility] [place] [address] PCP - General Internal Medicine 07/01/22 Anastasiia Colón, SUPERVISOR LABORATORY ANIMAL FACILITY.STUDENT EDUCATION SPECIALIST [address] [facility] [place] [address] Textile Bag Sewer Internal Medicine 04/09/24 Sheryl Reyes SUPERVISOR LABORATORY ANIMAL FACILITY.PURCHASING ADMINISTRATOR [address] [place] [address] Textile Bag Sewer Internal Medicine 04/09/24 Bander Relationship Specialty Start Date End Date Kierra Santiago MD [address] [place] [address] PCP - General Internal Medicine 07/01/22 Anastasiia Colón, SUPERVISOR LABORATORY ANIMAL FACILITY.STUDENT EDUCATION SPECIALIST [address] [place] [address] Textile Bag Sewer Internal Medicine 04/09/24 Sheryl Reyes SUPERVISOR LABORATORY ANIMAL FACILITY.PURCHASING ADMINISTRATOR [address] [place] [address] Textile Bag Sewer Internal Medicine 04/09/24 Bander Relationship Specialty Start Date End Date Kierra Santiago MD [address] [place] [address] PCP - General Internal Medicine 07/01/22 Anastasiia Colón, SUPERVISOR LABORATORY ANIMAL FACILITY.STUDENT EDUCATION SPECIALIST [address] [place] [address] Textile Bag Sewer Internal Medicine 04/09/24 Sheryl Reyes SUPERVISOR LABORATORY ANIMAL FACILITY.PURCHASING ADMINISTRATOR [address] [place] [address] Textile Bag Sewer Internal Medicine 04/09/24 Bander Relationship Specialty Start Date End Date Kierra Santiago MD [address] [place] [address] PCP - General Internal Medicine 07/01/22 Anastasiia Colón, SUPERVISOR LABORATORY ANIMAL FACILITY.STUDENT EDUCATION SPECIALIST [address] [place] [address] [facility] Internal Medicine 04/09/24 Sheryl Reyes APRN.PURCHASING ADMINISTRATOR [address] [place] [address] [facility] 04/09/24 Team Status: Active Member [...] 2024 End: June 20, 2024 Dominick Harrell MARKET RESEARCH INTERVIEWER, MARKET RESEARCH INTERVIEWER-C Attending Provider Active S tart: June 20, 2024 End: June 20, 2024 Team Status: Inactive Member Role Status Dates Dr. Kierra Santiago MD Primary Care Provider Active Start: July 10, 2024 End: July 10, 2024 Dominick Harrell MARKET RESEARCH INTERVIEWER, MARKET RESEARCH INTERVIEWER-C Attending Provider Active S tart: July 10, 2024 End: July 10, 2024 Dominick Harrell MARKET RESEARCH INTERVIEWER, MARKET RESEARCH INTERVIEWER-C Referring Provider Active S tart: July 10, 2024 End: July 10, 2024 Team Status: Inactive Member Role Status Dates Dr. Kierra Santiago MD Primary Care Provider Active Start: July 25, 2024 End: July 25, 2024 Dominick Harrell MARKET RESEARCH INTERVIEWER, MARKET RESEARCH INTERVIEWER-C Attending Provider Active S tart: July 25, 2024 End: July 25, 2024 Dominick Harrell MARKET RESEARCH INTERVIEWER, MARKET RESEARCH INTERVIEWER-C Referring Provider Active S tart: July 25, 2024 End: July 25, 2024 Bander Relationship Specialty Start Date End Date Kierra Santiago MD [address] [place] [address] PCP - General Internal Medicine 07/01/22 Anastasiia Colón APRN.STUDENT EDUCATION SPECIALIST [address] [place] [address] Textile Bag Sewer Internal Medicine 04/09/24 Sheryl Reyes APRN.PURCHASING ADMINISTRATOR [address] [facility] [place] [address] Textile Bag Sewer Internal Medicine 07/24/24 Bander Relationship Specialty Start Date End Date Kierra Santiago MD [address] [place] [address] PCP - General Internal Medicine 07/01/22 Anastasiia Colón APRN.STUDENT EDUCATION SPECIALIST [address] [facility] [place] [address] Textile Bag Sewer Internal Medicine 04/09/24 Sheryl Reyes APRN.PURCHASING ADMINISTRATOR [address] [facility] [place] [address] Textile Bag Sewer Internal Medicine 07/24/24 Bander Relationship Specialty Start Date End Date Kierra Santiago MD [address] [facility] [place] [address] PCP - General Internal Medicine 07/01/22 Anastasiia Colón SUPERVISOR LABORATORY ANIMAL FACILITY.STUDENT EDUCATION SPECIALIST [address] [facility] [place] [address] Textile Bag Sewer Internal Medicine 04/09/24 Sheryl Reyes APRN.PURCHASING ADMINISTRATOR [address] [facility] [place] [address] [facility] Internal Medicine 07/24/24 Team Status: Inactive Member Role Status Dates Dr. Kierra Santiago MD Primary Care Provider Active Start: August 15, 2024 End: August 15, 2024 Dominick Harrell MARKET RESEARCH INTERVIEWER, MARKET RESEARCH INTERVIEWER-C Attending Provider Active S tart: August 15, 2024 End: August 15, 2024 Dominick Harrell MARKET RESEARCH INTERVIEWER, MARKET RESEARCH INTERVIEWER-C Referring Provider Active S tart: August 15, [...] 2024 End: August 28, 2024 Dominick Harrell MARKET RESEARCH INTERVIEWER, MARKET RESEARCH INTERVIEWER-C Other Provider Active Start : August 28, [...] St art: October 10, 2024 Dr. Shaan Mnoae DO Attending Provider Active Start: October 10, 2024 Dr. Shaan Monae DO Other Provider Active Star t: October 10, 2024 Bander Relationship Specialty Start Date End Date Kierra Santiago MD [address] [facility] [place] [address] PCP - General Internal Medicine 07/01/22 Sheryl Reyes APRN.PURCHASING ADMINISTRATOR [address] [facility] [place] [address] Textile Bag Sewer Internal Medicine 07/24/24 Anastasiia Colón, SUPERVISOR LABORATORY ANIMAL FACILITY.STUDENT EDUCATION SPECIALIST [address] [facility] [place] [address] Textile Bag Sewer Internal Medicine 09/19/24 Bander Relationship Specialty Start Date End Date Kierra Santiago MD [address] [facility] [facility] [place] [address] PCP - General Internal Medicine 07/01/22 Sheryl Reyes SUPERVISOR LABORATORY ANIMAL FACILITY.PURCHASING ADMINISTRATOR [address] [facility] [place] [address] [employer] Internal Medicine 07/24/24 Anastasiia Colón, SUPERVISOR LABORATORY ANIMAL FACILITY.STUDENT EDUCATION SPECIALIST [address] [place] [address] [employer] Internal Medicine 09/19/24 Team Status: Active Member Role/Relationship Status Dates Dr. Kierra Santiago MD Primary Care Provider Active Team Status: Inactive Member Role/Relationship Status Dates Dr. Kierra Santiago MD Primary Care Provider Active Start: July 10, 2024 End: July 10, 2024 Dominick Harrell MARKET RESEARCH INTERVIEWER, MARKET RESEARCH INTERVIEWER-C Attending Provider Active S tart: July 10, 2024 End: July 10, 2024 Dominick H Roof MARKET RESEARCH INTERVIEWER, MARKET RESEARCH INTERVIEWER-C Referring Provider Active S tart: July 10, 2024 End: July 10, 2024 Team Status: Inactive Member Role/Relationship Status Dates Dr. Kierra Santiago MD Primary Care Provider Active Start: July 25, 2024 End: July 25, 2024 Dominick Harrell MARKET RESEARCH INTERVIEWER, MARKET RESEARCH INTERVIEWER-C Attending Provider Active S tart: July 25, 2024 End: July 25, 2024 Dominick H Roof MARKET RESEARCH INTERVIEWER, MARKET RESEARCH INTERVIEWER-C Referring Provider Active S tart: July 25, 2024 End: July 25, 2024 Team Status: Inactive Member Role/Relationship Status Dates Dr. Kierra Santiago MD Primary Care Provider Active Start: August 15, 2024 End: August 15, 2024 Dominick Harrell MARKET RESEARCH INTERVIEWER, MARKET RESEARCH INTERVIEWER-C Attending Provider Active S tart: August 15, 2024 End: August 15, 2024 Dominick Faria Roof MARKET RESEARCH INTERVIEWER, MARKET RESEARCH INTERVIEWER-C Referring Provider Active S tart: August 15, [...] 2024 End: August 28, 2024 Dominick Harrell MARKET RESEARCH INTERVIEWER, MARKET RESEARCH INTERVIEWER-C Other Provider Active Start : August 28, [...] October 31, 2024 End: October 31, 2024 Bander Relationship Specialty Start Date End Date Kierra Santiago MD [address] [place], [place] [address] PCP - General Internal Medicine 07/01/22 Sheryl Reyes APRN.CNP [address] [place], [place] [address] [employer] Internal Medicine 07/24/24 Anastasiia Colón, SUPERVISOR LABORATORY ANIMAL FACILITY.STUDENT EDUCATION SPECIALIST [address] [facility] [place] [address] [facility] Internal Medicine 09/19/24 Bander Relationship Specialty Start Date End Date Kierra Santiago MD [address] [facility] [place] [address] PCP - General Internal Medicine 07/01/22 Sheryl Reyes SUPERVISOR LABORATORY ANIMAL FACILITY.PURCHASING ADMINISTRATOR [address] [place] [address] [facility] Internal Medicine 07/24/24 Anastasiia Colón, SUPERVISOR LABORATORY ANIMAL FACILITY.STUDENT EDUCATION SPECIALIST [address] [place] [address] [facility] Internal Medicine 09/19/24 Bander Relationship Specialty Start Date End Date Kierra Santiago MD [address] [place] [address] PCP - General Internal Medicine 07/01/22 Sheryl Reyes, SUPERVISOR LABORATORY ANIMAL FACILITY.PURCHASING ADMINISTRATOR [address] [place] [address] [facility] Internal Medicine 07/24/24 Anastasiia Colón, SUPERVISOR LABORATORY ANIMAL FACILITY.STUDENT EDUCATION SPECIALIST [address] [place] [address] [facility] Internal Medicine 09/19/24 Team Status: Inactive Member Role/Relationship Status Dates Dr. Kierra Santiago MD Primary Care Provider Active Start: August 15, 2024 End: August 15, 2024 Dominick Harrell MARKET RESEARCH INTERVIEWER, MARKET RESEARCH INTERVIEWER-C Attending Provider Active S tart: August 15, 2024 End: August 15, 2024 Dominick Harrell MARKET RESEARCH INTERVIEWER, MARKET RESEARCH INTERVIEWER-C Referring Provider Active S tart: August 15, [...] 2024 End: August 28, 2024 Dominick Harrell MARKET RESEARCH INTERVIEWER, MARKET RESEARCH INTERVIEWER-C Other Provider Active Start : August 28, 2024 End: August 28, 2024 Team Status: Active Member Role/Relationship Status Dates Dr. Kirera Santiago MD Primary Care Provider Active Start: [...] Active Start: October 08, 2024 Dr. Matheus Fbaian MD Emergency Provider Active Start: October 08, [...] 2024 End: December 13, 2024 Dominick Harrell MARKET RESEARCH INTERVIEWER, MARKET RESEARCH INTERVIEWER-C Attending Provider Active S tart: December 13, 2024 End: December 13, 2024 Team Status: Active Member Role/Relationship Status Dates Dr. Kierra Santiago MD Primary care physician Active Team Status: Inactive Member Role/Relationship Status Dates Dr. Kierra Santiago MD Primary care physician Active Start: October 02, 2024 End: October 02, 2024 Dr. Eugene Blanca DPM Attending physician Active Start: October 02, 2024 End: October 02, 2024 Dr. Eugene Blanca DPM Referring Provider Active Start: October 02, 2024 End: October 02, 2024 Team Status: Active Member Role/Relationship Status Dates Dr. Jose Hollis MD Attending physician Active Start: October 02, 2024 Dr. Eugene Blanca DPM Referring Provider Active Start: October 02, 2024 Team Status: Inactive Member Role/Relationship Status Dates Dr. Kierra Santiago MD Primary care physician Active Start: October 07, 2024 End: October 10, 2024 Dr. Matheus Fabian MD Emergency Department Physician Active Start: October 07, 2024 End: October 10, 2024 Dr. Roly Herrera MD Nurse Practitioner Active Start: October 07, 2024 End: October 10, 2024 Dr. Kelsie Muñoz MD Admitting physician Active Start: October 07, 2024 End: October 10, 2024 Dr. Kelsie Muñoz MD Nurse Practitioner Active Start: October 07, 2024 End: October 10, 2024 Dr. Shaan Monae DO Attending physician Active Start: October 07, 2024 End: October 10, 2024 Team Status: Active Member Role/Relationship Status Dates Dr. Kierra Santiago MD Primary care physician Active Start: October 07, 2024 Dr. Matheus Fabian MD Emergency Department Physician Active Start: October 07, 2024 Dr. Roly Herrera MD Nurse Practitioner Active Start: October 07, 2024 Dr. Kelsie Muñoz MD Admitting physician Active Start: October 07, 2024 Dr. Kelsie Muñoz MD Attending physician Active Start: October 07, 2024 Dr. Kelsie Muñoz MD Nurse Practitioner Active Start: October 07, 2024 Team Status: Active Member Role/Relationship Status Dates Dr. Kierra Santiago MD Primary care physician Active Start: October 08, 2024 Dr. Matheus Fabian MD Emergency Department Physician Active Start: October 08, 2024 Dr. Roly Herrera MD Attending physician Active Start: October 08, 2024 Dr. Roly Herrera MD Nurse Practitioner Active Start: October 08, 2024 Dr. Kelsie Muñoz MD Admitting physician Active Start: October 08, 2024 Dr. Kelsie Muñoz MD Nurse Practitioner Active Start: October 08, 2024 Dr. Shaan Monae DO Nurse Practitioner Active Start: October 08, 2024 Team Status: Active Member Role/Relationship Status Dates Dr. Kierra Santiago MD Primary care physician Active Start: October 08, 2024 Dr. Matheus Fabian MD Emergency Department Physician Active Start: October 08, 2024 Dr. Roly Herrera MD Nurse Practitioner Active Start: October 08, 2024 Dr. Kelsie Muñoz MD Admitting physician Active Start: October 08, 2024 Dr. Kelsie Muñoz MD Nurse Practitioner Active Start: October 08, 2024 Dr. Shaan Monae DO Attending physician Active Start: October 08, 2024 Dr. Shaan Monae DO Nurse Practitioner Active Start: October 08, 2024 Team Status: Active Member Role/Relationship Status Dates Dr. Kierra Santiago MD Primary care physician Active Start: October 08, 2024 Dr. Matheus Fabian MD Emergency Department Physician Active Start: October 08, 2024 Dr. Roly Herrera MD Nurse Practitioner Active Start: October 08, 2024 Dr. Kelsie Muñoz MD Admitting physician Active Start: October 08, 2024 Dr. Kelsie Muñoz MD Nurse Practitioner Active Start: October 08, 2024 Dr. Shaan Monae DO Referring Provider Active Start: October 08, 2024 Dr. Shaan Monae DO Nurse Practitioner Active Start: October 08, 2024 Dr. Robb Giron DO Attending physician Active Start: October 08, 2024 Team Status: Active Member Role/Relationship Status Dates Dr. Kierra Santiago MD Primary care physician Active Start: October 09, 2024 Dr. Matheus Fabian MD Emergency Department Physician Active Start: October 09, 2024 Dr. Roly Herrera MD Nurse Practitioner Active Start: October 09, 2024 Dr. Kelsie Muñoz MD Admitting physician Active Start: October 09, 2024 Dr. Kelsie Muñoz MD Nurse Practitioner Active Start: October 09, 2024 Dr. Shaan Monae DO Attending physician Active Start: October 09, 2024 Dr. Shaan Monae DO Nurse Practitioner Active Start: October 09, 2024 Team Status: Active Member Role/Relationship Status Dates Dr. Kierra Santiago MD Primary care physician Active Start: October 09, 2024 Dr. Matheus Fabian MD Emergency Department Physician Active Start: October 09, 2024 Dr. Roly Herrera MD Attending physician Active Start: October 09, 2024 Dr. Roly Herrera MD Nurse Practitioner Active Start: October 09, 2024 Dr. Kelsie Muñoz MD Admitting physician Active Start: October 09, 2024 Dr. Kelsie Muñzo MD Nurse Practitioner Active Start: October 09, 2024 Dr. Shaan Monae DO Nurse Practitioner Active Start: October 09, 2024 Team Status: Active Member Role/Relationship Status Dates Dr. Kierra Santiago MD Primary care physician Active Start: October 09, 2024 Dr. Matheus Fabian MD Emergency Department Physician Active Start: October 09, 2024 Dr. Roly Herrera MD Nurse Practitioner Active Start: October 09, 2024 Dr. Kelsie Muñoz MD Admitting physician Active Start: October 09, 2024 Dr. Kelsie Muñoz MD Nurse Practitioner Active Start: October 09, 2024 Dr. Shaan Monae DO Referring Provider Active Start: October 09, 2024 Dr. Shaan Monae DO Nurse Practitioner Active Start: October 09, 2024 Dr. Robb Giron DO Attending physician Active Start: October 09, 2024 Team Status: Active Member Role/Relationship Status Dates Dr. Kierra Santiago MD Primary care physician Active Start: October 10, 2024 Dr. Matheus Fabian MD Emergency Department Physician Active Start: October 10, 2024 Dr. Roly Herrera MD Nurse Practitioner Active Start: October 10, 2024 Dr. Kelsie Muñoz MD Admitting physician Active Start: October 10, 2024 Dr. Kelsie Muñoz MD Nurse Practitioner Active Start: October 10, 2024 Dr. Shaan Monae DO Attending physician Active Start: October 10, 2024 Dr. Shaan Monae DO Nurse Practitioner Active Start: October 10, 2024 Team Status: Inactive Member Role/Relationship Status Dates Dr. Kierra Santiago MD Primary care physician Active Start: October 31, 2024 End: October 31, 2024 Dr. Kierra Santiago MD Referring Provider Active Start: October 31, 2024 End: October 31, 2024 Dr. Shaan Rojas MD Attending physician Active Start: October 31, 2024 End: October 31, 2024 Team Status: Inactive Member Role/Relationship Status Dates Dr. Kierra Santiago MD Primary care physician Active Start: December 13, 2024 End: December 13, 2024 Dr. Kierra Santiago MD Referring Provider Active Start: December 13, 2024 End: December 13, 2024 Dominick Harrell MARKET RESEARCH INTERVIEWER, MARKET RESEARCH INTERVIEWER-C Attending physician Active Start: December 13, 2024 End: December 13, 2024 Team Status: Active Member Role/Relationship Status Dates Dr. Kierra Santiago MD Primary care physician Active Start: January 22, 2025 Dr. Shaan Rojas MD Admitting physician Active Start: January 22, 2025 Dr. Shaan Rojas MD Attending physician Active Start: January 22, 2025 Dr. Shaan Rojas MD Referring Provider Active S tart: January 22, 2025 Dr. Shaan Rojas MD Nurse Practitioner Active S tart: January 22, 2025 Team Status: Inactive Member Role/Relationship Status Dates Dr. Kierra Santiago MD Primary care physician Active Start: January 22, 2025 End: January 23, 2025 Dr. Shaan Rojas MD Admitting physician Active Start: January 22, 2025 End: January 23, 2025 Dr. Shaan Rojas MD Attending physician Active Start: January 22, 2025 End: January 23, 2025 Dr. Shaan Rojas MD Referring Provider Active S tart: January 22, 2025 End: January 23, 2025 Team Status: Active Member Role/Relationship Status Dates Dr. Kierra Santiago MD Primary care physician Active Start: January 23, 2025 Dr. Shaan Rojas MD Admitting physician Active Start: January 23, 2025 Dr. Shaan Rojas MD Attending physician Active Start: January 23, 2025 Dr. Shaan Rojas MD Referring Provider Active S tart: January 23, 2025 Dr. Shaan Rojas MD Nurse Practitioner Active S tart: January 23, 2025 Team Status: Inactive Member Role/Relationship Status Dates Dr. Kierra Santiago MD Primary care physician Active Start: October 07, 2024 End: October 10, 2024 Dr. Matheus Fabian MD Emergency Department Physician Active Start: October 07, 2024 End: October 10, 2024 Dr. Roly Herrera MD Nurse Practitioner Active Start: October 07, 2024 End: October 10, 2024 Dr. Kelsie Muñoz MD Admitting physician Active Start: October 07, 2024 End: October 10, 2024 Dr. Kelsie Muñoz MD Nurse Practitioner Active Start: October 07, 2024 End: October 10, 2024 Dr. Shaan Monae DO Attending physician Active Start: October 07, 2024 End: October 10, 2024 Team Status: Active Member Role/Relationship Status Dates Dr. Kierra Santiago MD Primary care physician Active Start: October 08, 2024 Dr. Matheus Fabian MD Emergency Department Physician Active Start: October 08, 2024 Dr. Roly Herrera MD Attending physician Active Start: October 08, 2024 Dr. Roly Herrera MD Nurse Practitioner Active Start: October 08, 2024 Dr. Kelsie Muñoz MD Admitting physician Active Start: October 08, 2024 Dr. Kelsie Muñoz MD Nurse Practitioner Active Start: October 08, 2024 Dr. Shaan Monae DO Nurse Practitioner Active Start: October 08, 2024 Team Status: Active Member Role/Relationship Status Dates Dr. Kierra Santiago MD Primary care physician Active Start: October 08, 2024 Dr. Matheus Fabian MD Emergency Department Physician Active Start: October 08, 2024 Dr. Roly Herrera MD Nurse Practitioner Active Start: October 08, 2024 Dr. Kelsie Muñoz MD Admitting physician Active Start: October 08, 2024 Dr. Kelsie Muñoz MD Nurse Practitioner Active Start: October 08, 2024 Dr. Shaan Monae DO Attending physician Active Start: October 08, 2024 Dr. Shaan Monae DO Nurse Practitioner Active Start: October 08, 2024 Team Status: Active Member Role/Relationship Status Dates Dr. Kierra Santiago MD Primary care physician Active Start: October 08, 2024 Dr. Matheus Fabian MD Emergency Department Physician Active Start: October 08, 2024 Dr. Roly Herrera MD Nurse Practitioner Active Start: October 08, 2024 Dr. Kelsie Muñoz MD Admitting physician Active Start: October 08, 2024 Dr. Kelsie Muñoz MD Nurse Practitioner Active Start: October 08, 2024 Dr. Shaan Monae DO Referring Provider Active Start: October 08, 2024 Dr. Shaan Monae DO Nurse Practitioner Active Start: October 08, 2024 Dr. Robb Giron DO Attending physician Active Start: October 08, 2024 Team Status: Active Member Role/Relationship Status Dates Dr. Kierra Santiago MD Primary care physician Active Start: October 09, 2024 Dr. Matheus Fabian MD Emergency Department Physician Active Start: October 09, 2024 Dr. Roly Herrera MD Nurse Practitioner Active Start: October 09, 2024 Dr. Kelsie Muñoz MD Admitting physician Active Start: October 09, 2024 Dr. Kelsie Muñoz MD Nurse Practitioner Active Start: October 09, 2024 Dr. Shaan Monae DO Attending physician Active Start: October 09, 2024 Dr. Shaan Monae DO Nurse Practitioner Active Start: October 09, 2024 Team Status: Active Member Role/Relationship Status Dates Dr. Kierra Santiago MD Primary care physician Active Start: October 09, 2024 Dr. Matheus Fabian MD Emergency Department Physician Active Start: October 09, 2024 Dr. Roly Herrera MD Attending physician Active Start: October 09, 2024 Dr. Roly Herrera MD Nurse Practitioner Active Start: October 09, 2024 Dr. Kelsie Muñoz MD Admitting physician Active Start: October 09, 2024 Dr. Kelsie Muñoz MD Nurse Practitioner Active Start: October 09, 2024 Dr. Shaan Monae DO Nurse Practitioner Active Start: October 09, 2024 Team Status: Active Member Role/Relationship Status Dates Dr. Kierra Santiago MD Primary care physician Active Start: October 09, 2024 Dr. Matheus Fabian MD Emergency Department Physician Active Start: October 09, 2024 Dr. Roly Herrera MD Nurse Practitioner Active Start: October 09, 2024 Dr. Kelsie Muñoz MD Admitting physician Active Start: October 09, 2024 Dr. Kelsie Muñoz MD Nurse Practitioner Active Start: October 09, 2024 Dr. Shaan Monae DO Referring Provider Active Start: October 09, 2024 Dr. Shaan Monae DO Nurse Practitioner Active Start: October 09, 2024 Dr. Robb Giron DO Attending physician Active Start: October 09, 2024 Team Status: Active Member Role/Relationship Status Dates Dr. Kierra Santiago MD Primary care physician Active Start: October 10, 2024 Dr. Matheus Fabian MD Emergency Department Physician Active Start: October 10, 2024 Dr. Roly Herrera MD Nurse Practitioner Active Start: October 10, 2024 Dr. Kelsie Muñoz MD Admitting physician Active Start: October 10, 2024 Dr. Kelsie Muñoz MD Nurse Practitioner Active Start: October 10, 2024 Dr. Shaan Monae DO Attending physician Active Start: October 10, 2024 Dr. Shaan Monae DO Nurse Practitioner Active Start: October 10, 2024 Team Status: Inactive Member Role/Relationship Status Dates Dr. Kierra Santiago MD Primary care physician Active Start: October 31, 2024 End: October 31, 2024 Dr. Kierra Santiago MD Referring Provider Active Start: October 31, 2024 End: October 31, 2024 Dr. Shaan Rojas MD Attending physician Active Start: October 31, 2024 End: October 31, 2024 Team Status: Inactive Member Role/Relationship Status Dates Dr. Kierra Santiago MD Primary care physician Active Start: December 13, 2024 End: December 13, 2024 Dr. Kierra Santiago MD Referring Provider Active Start: December 13, 2024 End: December 13, 2024 Dominick Harrell NP, MARKET RESEARCH INTERVIEWER-C Attending physician Active Start: December 13, 2024 End: December 13, 2024 Team Status: Active Member Role/Relationship Status Dates Dr. Kierra Santiago MD Primary care physician Active Start: January 22, 2025 Dr. Shaan Rojas MD Admitting physician Active Start: January 22, 2025 Dr. Shaan Rojas MD Attending physician Active Start: January 22, 2025 Dr. Shaan Rojas MD Referring Provider Active S tart: January 22, 2025 Dr. Shaan Rojas MD Nurse Practitioner Active S tart: January 22, 2025 Team Status: Inactive Member Role/Relationship Status Dates Dr. Kierra Santiago MD Primary care physician Active Start: January 22, 2025 End: January 23, 2025 Dr. Shaan Rojas MD Admitting physician Active Start: January 22, 2025 End: January 23, 2025 Dr. Shaan Rojas MD Attending physician Active Start: January 22, 2025 End: January 23, 2025 Dr. Shaan Rojas MD Referring Provider Active S tart: January 22, 2025 End: January 23, 2025 Team Status: Active Member Role/Relationship Status Dates Dr. Kierra Santiago MD Primary care physician Active Start: January 23, 2025 Dr. Shaan Rojas MD Admitting physician Active Start: January 23, 2025 Dr. Shaan Rojas MD Attending physician Active Start: January 23, 2025 Dr. Shaan Rojas MD Referring Provider Active S tart: January 23, 2025 Dr. Shaan Rojas MD Nurse Practitioner Active S tart: January 23, 2025 Team Status: Inactive Member Role/Relationship Status Dates Dr. Kierra Santiago MD Primary care physician Active Start: February 05, 2025 End: February 05, 2025 Dr. Kierra Santiago MD Referring Provider Active Start: February 05, 2025 End: February 05, 2025 COLTON Wetzel Attending physician Active Sta rt: February 05, 2025 End: February 05, 2025 Goals (unrecognized section and content) Goals may be documented in a n alternate section INFORMATION SOURCE (unrecogn ized section and content) DATE CREATED AUTHOR 03/13/2025 [facility] DATE CREATED AUTHOR AUTHOR'S ORGANIZ ATION 03/15/2025 [facility] FOR RECORDS PERTAINING TO PATIENTS WHO [...] BE BASED ON THE PRIMARY CLINICAL RECORDS. [employer] provides no warranty or guarantee of the accuracy or completeness of information in this document.
[2025-05-01 07:11] LABS: Hematocrit 29.7 % (37-47); Hemoglobin 9.8 g/dL (12.0-15.0); Mean Corp Hgb Conc 33.0 g/dL (32-36); Mean Corpuscular Volume 102.4 fL (81-99); Mean Platelet Vol. 10.0 fl (6.2-12.0); Platelet Count 290 K/mm3 (150-450); RBC Distribution Width CV 15.7 % (11.6-14.6); RBC Distribution Width SD 59.0 fl (35.1-43.9); Red Blood Count 2.90 M/mm3 (4.2-5.4); White Blood Count 4.6 K/mm3 (4.4-11.0)
[2025-05-01 07:20] LABS: Prothrombin Time (Protime)PT. 15.4 SECONDS (11.7-14.9)
[2025-05-01 07:36] LABS: Anion Gap 13 (7-18); BUN 22 mg/dL (4-19); BUN/Creat Ratio 19.2 RATIO (10-20); Calcium,Total 9.7 mg/dL (7.6-11.0); Carbon Dioxide 21.5 mmol/L (20.0-29.0); Chloride 101 mmol/L (96-106); Estimated Creatinine Clearance 33.61 ml/min (50-250); Glucose 191 mg/dL (70-99); Potassium 4.0 mmol/L (3.5-5.1)
--- NOTE | 2025-05-01 07:46 | PCM.HP.STD ---
HPI - General HPI Narrative JAROD PRITCHARD, is a 84 F who presents with prior RLE revascularizations including fem-pop with PTFE and subsequent jump graft with GSV. 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 [facility] Medical History Arthritis OAB (overactive bladder) Restless leg syndrome Hx of Clostridium difficile infection GERD (gastroesophageal reflux disease) Shortness of breath Chronic cough Leg cramping Edema History of carotid artery disease Wears hearing aid in both ears Diabetes Sleep apnea Hx of cardiovascular stress test Hx of echocardiogram Cardiology follow-up encounter (HFpEF) heart failure with preserved ejection fraction Pleural effusion, left TIA (transient ischemic attack) Wears glasses Depression Non-smoker Hypertension Gastric ulcer Aortic valve stenosis Atrial fibrillation Dilated cardiomyopathy Prolonged QT interval Elevated blood pressure reading without diagnosis of hypertension Factor V Leiden Anxiety Hypokalemia Acute hypoxemic respiratory failure CHF (congestive heart failure) Home Medications ?Medication ?Instructions ?Recorded ?Last Taken ?Type oxybutynin chloride 10 mg 10 mg PO DAILY bladder 09/23/23 02/25/25 History tablet,extended release 24 hr glimepiride 2 mg tablet 2 mg PO DAILY dm 12/31/23 01/21/25 History furosemide 40 mg tablet 40 mg PO DAILY water pill 30 days 03/19/24 02/25/25 Rx #60 tabs clopidogrel 75 mg tablet 75 mg PO DAILY a fib 30 days #30 04/05/24 02/22/25 Rx tabs pantoprazole 40 mg tablet,delayed 40 mg PO BID reflux 30 days #60 04/05/24 02/26/25 05:00 Rx release tabs simvastatin 80 mg tablet 80 mg PO QHS cholesterol 06/20/24 02/25/25 History magnesium chloride 64 mg 128 mg PO DAILY leg cramps 08/17/24 02/25/25 History (magnesium chloride) tablet,delayed release (Mag 64) potassium chloride 20 mEq 20 meq PO BID supplement 08/20/24 02/25/25 History tablet,extended release acetaminophen 500 mg capsule 500 mg PO QHS PRN pain 10/07/24 01/21/25 History fluticasone propionate 50 2 spray intranasal Q12H PRN 10/07/24 01/21/25 History mcg/actuation nasal congestion spray,suspension gabapentin 100 mg capsule 100 mg PO TID pain 10/07/24 02/25/25 History metoprolol succinate 25 mg 25 mg PO BID bp #60 tabs 10/10/24 05/01/25 Rx tablet,extended release 24 hr tizanidine 4 mg tablet 2 mg PO Q8 PRN muscle spasticity 12/13/24 02/25/25 History warfarin 2 mg tablet 2 mg PO SUMOWEFRSA afib 12/13/24 04/27/25 History cinnamon bark 500 mg capsule 500 mg PO DAILY supplement 01/07/25 02/25/25 History (Cinnamon) coenzyme Q10 100 mg capsule (Co 100 mg PO DAILY supplement 01/07/25 02/25/25 History Q-10) cranberry 500 mg capsule 500 mg PO DAILY supplement 01/07/25 02/25/25 History diphenhydramine HCl 25 mg capsule 25 mg PO DAILY allergies 01/07/25 02/25/25 History (Aler-Cap) lactobacillus combination no.4 3 3,000 mmu cells PO DAILY supplement 01/07/25 02/25/25 History billion cell capsule (Probiotic) losartan 100 1 tab PO DAILY bp 01/07/25 05/01/25 History mg-hydrochlorothiazide 12.5 mg tablet aspirin 81 mg tablet,delayed 81 mg PO DAILY [facility] #30 01/23/25 05/01/25 Rx release tabs amlodipine 10 mg tablet 10 mg PO DAILY bp 02/12/25 05/01/25 History ferrous sulfate 325 mg (65 mg 325 mg PO QHS supplement 02/12/25 02/25/25 History iron) tablet (FeroSul) warfarin 1 mg tablet 1 mg PO TUTH AFIB 02/12/25 02/22/25 History oxycodone 5 mg tablet 5 mg PO Q8H PRN PRN Pain Score 02/27/25 Unknown Rx 4-10 3 days #9 tabs Allergy/AdvReac Type Severity Reaction Status Date / Time benazepril (From Lotensin) Allergy Mild DOESNT Verified 03/13/25 13:32 REMEMBER quinapril (From Accupril) Allergy Mild UNKNOWN Verified 02/26/25 06:14 Sulfa (Sulfonamide Allergy Mild Hives Verified 02/26/25 06:14 Antibiotics) verapamil (From Calan) Allergy Mild UNKNOWN Verified 02/26/25 06:14 Family History Mother Diabetes Father Diabetes CVA (cerebral vascular accident) Heart disease Hypertension Myocardial infarction CAD (coronary artery disease) Brother Myocardial infarction Hypertension Heart disease CAD (coronary artery disease) Sister NAFLD (nonalcoholic fatty liver disease) Other Asthma COPD (chronic obstructive pulmonary disease) Surgical History Hx of right cataract extraction Hx of left cataract extraction Hx of cardiac catheterization History of esophagogastroduodenoscopy (EGD) (10/08/24) Hx of amputation History of transmetatarsal amputation of right foot History of femoropopliteal bypass S/P carotid endarterectomy Social History household members: spouse Smoking Status: Never smoker alcohol intake: never substance use type: does not use ROS Constitutional Constitutional: Denies chills, fever(s), frequent falls, lethargy or weakness Eyes Eyes: Denies blind spots, change in vision or loss of vision ENT HEENT: Denies bleeding gums, hoarseness or sore throat Cardiovascular Cardiovascular: Denies abdominal pain, bluish discoloration of hand/feet, chest pain with activity, claudication, cold extremities, cyanosis, dyspnea on exertion, erythema on extremities, irregular heart rhythm, leg edema, leg ulcers, numbness in extremities or weakness in extremities Respiratory/Chest Respiratory/Chest: Denies cough, excessive phlegm production, shortness of breath at rest, shortness of breath with exertion or wheezing Gastrointestinal Gastrointestinal: Denies anorexia, change in stool character, constipation, diarrhea, melena or rectal bleeding Genitourinary Genitourinary: Denies dysuria or hematuria Musculoskeletal Musculoskeletal: Denies abnormal gait Integumentary Integumentary: Reports other Details: ; Denies erythema, non-healing lesions or wounds Neurologic Neurologic: Denies abnormal speech, focal weakness, headache(s), loss of vision, numbness, paresthesias or sensory deficit Hematologic/Lymphatic Hematologic/Lymphatic: Denies easy bleeding, easy bruising or lymphadenopathy Patient's Goals Of Care . What would you like to achieve or improve as a result of your hospital stay?: wtf Vital Signs Vital Signs Vital Signs: Weight Weight: 152 lb Body Mass Index (BMI) 26.9 Physical Exam Const alert, oriented x3, no apparent distress and healthy appearing General Appearance: cooperative; Negative for combative or lethargic Orientation / Consciousness: awake Exam Limitations: no limitations HEENT Head and Scalp: normocephalic and atraumatic Eyes EOMs intact bilaterally General Eye: normal appearance of both eyes Neck full ROM General: trachea midline Resp normal respiratory effort and no use of accessory muscles Effort and Inspection: Negative for labored, stridor or audible wheezes Cardio regular rate and regular rhythm Back/Spine Cervical Spine: cervical ROM normal Extremity full ROM, normal capillary refill and no clubbing, cyanosis or edema Skin no rashes or lesions noted and no wounds Neuro oriented x3, CN's II-XII intact bilaterally, no focal motor deficits and no sensory deficits noted Psych thought process normal, cooperative, affect normal, speech normal and activity/motor behavior normal Results Lab / Micro Data 05/01/25 06:59 05/01/25 06:59 Labs: Laboratory Results - last 24 hr 05/01/25 06:59: WBC 4.6, RBC 2.90 L, Hgb 9.8 L, Hct 29.7 L, MCV 102.4 H, MCH 33.8 H, MCHC 33.0, RDW Std Deviation 59.0 H, RDW Coeff of Kate 15.7 H, Plt Count 290, MPV 10.0, PT 15.4 H, INR 1.2, Sodium 136, Potassium 4.0, Chloride 101, Carbon Dioxide 21.5, Anion Gap 13, BUN 22 H, Creatinine 1.14, Estim Creat Clear Calc 33.61 L, Est GFR (MDRD) Non-Af 47 L, BUN/Creatinine Ratio 19.2, Glucose 191 H, Calcium 9.7 Assessment & Plan Assessment/Plan (1) Bypass graft stenosis: QUALIFIERS: Encounter type: subsequent encounter Qualified Code(s): T82.858D - Stenosis of other vascular prosthetic devices, implants and grafts, subsequent encounter PLAN: -angiogram
[2025-05-01 09:34] LABS: ACT Activated Clotting Time 235 sec (74-137)
--- NOTE | 2025-05-01 10:46 | OP.PCM_ITS ---
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 Her most recent surveillance duplex revealed greater than 75% stenosis of the proximal bypass graft and location suggestive of hypertrophied valve with diminished velocities distal. She is taken now for angiogram for preservation of her bypass grafts. Description of procedure: Upon obtaining informed consent and verification correct patient procedure site the patient was taken to the [facility] [employer] [employer] where she was positioned prepped and draped in usual sterile fashion. Timeouts performed and conscious sedation administered Versed and fentanyl. Skin overlying the left common femoral artery was anesthetized 1% lidocaine and assessed with ultrasound. It was noted that she had focal significant plaque in the proximal third of the vessel though there was patent lumen. Under ultrasound guidance the mid to distal common femoral artery was accessed with a micropuncture needle wire with some redirection of the wire required to traverse the area of plaque but ultimately able to advance into the iliac vessels. The needle was exchanged for a micropuncture sheath through which injection iliofemoral angiograms performed revealing satisfactory position with no extravasation or dissection. Through the micropuncture sheath a Empressr wire was advanced and the micropuncture sheath exchanged for a short 6 [place] sheath. The patient was then heparinized and allowed to circulate for 3 minutes with subsequent heparin dosing based on ACT results. Through the 6 [place] sheath an Omni Flush catheter was advanced into the abdominal aorta and digital traction aortogram pelvic angiogram was performed. This revealed normal caliber aorta with moderate calcified atherosclerosis but no stenosis. The left common and external neck artery were patent normal caliber with no significant atherosclerosis or stenosis. The right common iliac artery was patent and ectatic with no significant stenosis. The external iliac artery and common femoral artery were patent with mild atherosclerosis but no stenosis. Utilizing an Omni Flush catheter and glide advantage wire we then navigated the aortic bifurcation advancing a catheter in the distal external iliac artery. From this position s equential subtraction angiography the right lower extremity was performed which revealed patent profunda femoral artery with no significant atherosclerosis or stenosis. The superficial femoral artery was patent with mild diffuse atherosclerosis but no significant stenosis. The prior superficial femoral to popliteal artery bypass a widely patent proximal anastomosis and brisk contrast transit throughout with egress via the jump graft and into the distal anastomosis at the popliteal artery. Popliteal artery had retrograde filling to the P1 segment and outflow via the peroneal artery which was moderately diseased proximally and then ultimately ended in a network of collaterals. The anterior tibial artery posterior tibial artery were occluded. The saphenous bypass graft was patent with delayed contrast transit with severe stenosis greater than 75% approximately 1 cm distal to the proximal anastomosis. The distal anastomosis appeared patent with no visualized stenosis and the posterior tibial artery was either underfilled or had diffuse disease beyond the anastomosis. The lesion in the saphenous bypass graft appeared amenable to endovascular treatment so the glide advantage wire was advanced through the catheter and navigate into the superficial femoral artery. The catheter and short 6 [place] sheath was then exchanged for a 6 [place] 55 Chaz sheath which was advanced into the mid superficial femoral artery. From this position utilizing an angled quick cross catheter and the glide advantage wire we navigate into the synthetic bypass graft and ultimately into the saphenous bypass graft. The catheter was advanced beyond the lesion and additional subtraction angiography performed to confirm position within the lumen of the bypass but also to further assess the distal o utflow vessel. The posterior tibial artery beyond the anastomosis of the bypass graft was patent and had improved caliber with direct contrast injection with no significant stenosis so was felt that this portion of the vessel did not necessitate any intervention. An 014 [place] core wire was then advanced to the catheter and the catheter withdrawn. An 014 intravascular probe was then advanced over the wire and recorded pullback performed from the mid saphenous bypass graft to the superficial femoral artery proximal to the synthetic bypass proximal anastomosis. This imaging provided reference vessel sizing and confirmed stenosis of 70% in the proximal saphenous graft. Given the size of the target vessel in the outflow small caliber it was felt that any stent would not perform well at this location so angioplasty with drug-coated balloon angioplasty was felt to be appropriate. A 3 mm x 40 AngioSculpt balloon was then advanced and centered on the lesion inflated for multiple inflations and then deflated withdrawn. This was followed by a 4 mm x 40 [employer] drug- coated angioplasty balloon which is inflated to nominal send on the lesion for 2 minutes then deflated and withdrawn. Completion angiography revealed satisfactory response of lesion with no residual stenosis and no extravasation or dissection. There was improved contrast transit across the saphenous vein bypass graft as well as continued normal contrast into the synthetic bypass outflow anastomosis. See no further need for intervention wires and catheters were withdrawn. Given the atherosclerosis of the access site no closure device was utilized so the sheath was withdrawn and manual pressure held for 18 minutes till hemostasis was observed. The patient was then taken to recovery area with plan discharge home after bedrest was completed. Surgical Findings: Focal plaque in the proximal left common femoral artery Focal stenosis in the proximal GSV jump graft, resolved after intervention Small caliber but nondiseased posterior tibial outflow Complications Complications: No
== END 2025-05-01 15:37 | disposition home or self-care (01) ==
PROVIDERS: PCP Internal Medicine; Referring Provider Surgery Trauma Surgery; Visit Provider Surgery Trauma Surgery
DX: T82.858A Stenosis of other vascular prosthetic devices, implants and grafts, initial encounter (principal); I11.0 Hypertensive heart disease with heart failure; I50.32 Chronic diastolic (congestive) heart failure; E11.9 Type 2 diabetes mellitus without complications; I70.203 Unspecified atherosclerosis of native arteries of extremities, bilateral legs; K21.9 Gastro-esophageal reflux disease without esophagitis; Z79.899 Other long term (current) drug therapy; Z79.82 Long term (current) use of aspirin; I70.0 Atherosclerosis of aorta; Y71.8 Miscellaneous cardiovascular devices associated with adverse incidents, not elsewhere classified
CPT/HCPCS: 36200; 36245; 36415; 37228; 37252; 37253; 75625; 75710; 76937; 80048; 85027; 85347; 85610; 99152; 99153; C2623; Q9967